=== PATIENT | female | born 2005 | race Caucasian/White ===

== ENCOUNTER 2025-07-26 13:38 | Emergency (ER) | payer OTHER, SELFPAY ==
--- NOTE | ~2025-07-26 | XR_ITS ---
CLINICAL HISTORY: pain, injury 3 view right foot Comparison: None provided Findings: No fractures or dislocations. No significant loss of joint space, osteophytes, or erosions. No ankle effusion. No radiopaque foreign body. IMPRESSION: 1. No acute findings. If pain persists, consider MRI of the right foot. This document has been electronically signed by: Cole Valerio MD on 07/26/2025 14:33:27
--- NOTE | ~2025-07-26 | XR_ITS ---
CLINICAL HISTORY: pain, injury 3 view right ankle Comparison: None provided Findings: Spiral fracture of the distal fibular metaphysis with lateral angulation No significant arthritic change or erosions. No ankle effusion. No radiopaque foreign body. IMPRESSION: 1. Spiral fracture of the distal fibular metaphysis with lateral angulation. This document has been electronically signed by: Cole Valerio MD on 07/26/2025 14:34:13
[2025-07-26 13:51] VITALS: BP 135/73; PULSE 87; RESP 18; TEMP 36.6; O2SAT 98; BMI 45.2
--- NOTE | 2025-07-26 13:51 | ED_ITS ---
HPI - General Adult General Chief complaint: Extremity Injury, Lower Stated complaint: r ankle inj Time Seen by Provider: 07/26/25 14:43 Source: patient and other (patient's friend) Mode of arrival: wheelchair Limitations: no limitations History of Present Illness ED Provider: Porsche Santos PA-C HPI narrative: Patient is a 20 year old assigned female at with no reported medical history presenting to the emergency department today with right ankle pain. Patient states that last night she twisted her right ankle and has had pain ever since. Patient states that she didn't hit her head or have any other injuries with the incident. Patient denies any other complaints. Onset (ago): day(s) (1) Location: right and lower extremity Related Data Allergies Allergy/AdvReac Type Severity Reaction Status Date / Time No Known Allergies Allergy Verified 07/26/25 13:53 Review of Systems 2 Constitutional: Constitutional: Reports as per HPI Eyes: Eyes: Reports as per HPI ENT: Reports as per HPI Cardiovascular: Cardiovascular: Reports as per HPI Respiratory: Respiratory: Reports as per HPI Gastrointestinal: Gastrointestinal: Reports as per HPI Genitourinary: Genitourinary: Reports as per HPI Musculoskeletal: Musculoskeletal: Reports as per HPI Integumentary/Breasts: Skin/Breast: Reports as per HPI Neurologic: Reports as per HPI Psychiatric: Psychiatric: Reports as per HPI Endocrine: Endocrine: Reports as per HPI Hematologic/Lymphatic: Hematologic/Lymphatic: Reports as per HPI Allergic/Immunologic: Allergic/Immunologic: Reports as per HPI [facility] Past Medical History Attestation statement: The following information was validated with the patient. Source: old records reviewed, nursing notes reviewed and other (patient's friend provided additional history and confirmed the history provided by the patient. ) Social History Social History Advance Directives: No Advance Directives Information Provided: No Do you have a plan to hurt others: No Plan Physical Exam ED Vital Signs: Vital Signs - 24 hr 07/26/25 13:51 Temperature 98 F Pulse Rate 87 Respiratory Rate 18 Blood Pressure 135/73 Pulse Oximetry 98 Oxygen Delivery Method Room Air BMI result Body Mass Index 45.2 Const General: cooperative, no acute distress, alert and awake Nutritional Appearance: well nourished Orientation/consciousness: patient oriented x3 HENMT Head: Yes normal to inspection and Yes atraumatic Ears: hearing grossly normal bilaterally and external ears normal General nose exam: Normal external nose present, no nasal discharge noted and no epistaxis Face and sinus: Yes normal facial exam, No abrasion and No laceration Mouth: Normal oral and palatal mucosa present, no drooling and no muffled voice Eyes General: appearance normal, both eyes and all related structures Periorbital: periorbital findings normal Eyelids: Yes eyelids normal Conjunctivae: conjunctivae normal Pupils: Equal, round and reactive pupils present EOM: EOMs intact bilaterally Neck Neck: Yes normal visual inspection and Yes full ROM Resp Effort & Inspection: normal respiratory effort and able to speak in complete sentences Neuro General: patient oriented x3, moves all extremities and CN's II-XI intact bilaterally Cranial nerves: Yes Equal, round and reactive pupils present Cognition (Neuro): normal cognition Extrem Other: Swelling to the right ankle Pain with right ankle ROM Pain with palpation of the right ankle General: Yes capillary refill normal Psych Appearance: grossly normal Mental Status: mental status grossly normal Affect: normal affect Attitude: cooperative Thought process: Normal thought process present Thought content: Normal thought content present Insight: Good insight present (Psych) Course Course Course Narrative: Rapid medical examination performed in triage by Porsche Santos PA-C. Patient is a 20 year old assigned female at presenting to the emergency department with right ankle and foot pain. Detailed physical exam and review of systems are deferred to the sucker machine operator. Imaging ordered. Patient placed back in the waiting room pending room availability and results. Procedures Orthopedic Splinting/Casting R ankle fracture: Side: right Lower Extremity Injury Location: ankle Lower Extremity Immobilizer: posterior splint and stirrup splint Other Orthopedic Equipment: crutches Medical Decision Making Medical Decision Making MDM Narrative: Patient is a 20 year old assigned female at with no reported medical history presenting to the emergency department today with right ankle pain. Patient's physical exam was as noted in the physical exam portion of this note. Patient's right ankle x-ray showed a spiral fracture of the distal fibula and her right foot foot x-ray showed no acute process. I explained my physical exam findings as well as all test results to the patient and the patient's friend. I answered all questions asked by the patient and the patient's friend. Patient's right ankle was placed in a posterior short leg splint with stirrups, without incident. Patient's PMS of the right lower extremity was present and normal prior to and after splint placement. Patient was given crutches with crutch instructions and was able to demonstrate appropriate use while in the department. I stressed the importance of the patient taking her medication as directed (either prescribed or as the over the counter packaging recommends). I stressed the importance of the patient following up with her primary care provider and the orthopedic team. I stressed the importance of the patient returning to the emergency department immediately if her symptoms were to worsen or if she were to develop any dizziness, shortness of breath, difficulty breathing, chest pain, blurry vision, loss of vision, nausea, vomiting, abdominal pain, fever, chills, back pain, or any other complaints. Patient and the patient's friend verbalized agreement and understanding with this treatment plan and discharge. Differential Diagnosis Differential Diagnoses: The differential diagnosis associated with the presentation includes Ankle fracture Fibular fracture Admission/Observation Consideration of admission/observation: Escalation of care including admission/observation considered Patient would have been admitted to the hospital had her work up had any findings where hospital admission was appropriate and her clinical presentation warranted hospital admission. Independent Interpretation I performed an independent interpretation of an: Plain X-Ray Interpretation: My interpretation is in agreement with the radiologist's impression of these imaging studies. L Reason for Exam: pain, injury CLINICAL HISTORY: pain, injury 3 view right foot Comparison: None provided Findings: No fractures or dislocations. No significant loss of joint space, osteophytes, or erosions. No ankle effusion. No radiopaque foreign body. IMPRESSION: 1. No acute findings. If pain persists, consider MRI of the right foot. This document has been electronically signed by: Cole Valerio MD on 07/26/2025 14:33:27 Dictated By: Cole Valerio MD Signed By: Electronically signed by Cole Valerio MD 07/26/25 1434 Reason for Exam: pain, injury CLINICAL HISTORY: pain, injury 3 view right ankle Comparison: None provided Findings: Spiral fracture of the distal fibular metaphysis with lateral angulation No significant arthritic change or erosions. No ankle effusion. No radiopaque foreign body. IMPRESSION: 1. Spiral fracture of the distal fibular metaphysis with lateral angulation. This document has been electronically signed by: Cole Valerio MD on 07/26/2025 14:34:13 Dictated By: Cole Valerio MD Signed By: Electronically signed by Cole Valerio MD 07/26/25 1435 Radiology Impression Discussion of test interpretation with radiology: I have reviewed the radiologist's reading. Independent Historian Clinical information obtained from an independent historian. History obtained from or confirmed by: Friend (patient's friend provided additional history and confirmed the history provided by the patient. ) Discharge Plan Discharge Clinical Impression: Closed fibular fracture Patient Disposition: Home, Self-Care Instructions: Leg Fracture (ED), Crutch Instructions (ED) Additional Instructions: Remain non weight bearing on your right lower extremity. Do NOT stick anything down / into your splint. Do NOT get your splint wet. Do N OT remove your splint. If you have any change in sensation, movement, or color of your right toes - you may loosen the outer LUIS ENRIQUE wraps. If you find yourself loosening the LUIS ENRIQUE wraps to the point of seeing the white splint material underneath - STOP and proceed to your closest Emergency Department, immediately. Follow up with your primary care provider and the orthopedic team. Return to the emergency department immediately if your symptoms worsen or if you develop any numbness, tingling, dizziness, shortness of breath, difficulty breathing, chest pain, blurry vision, loss of vision, nausea, vomiting, abdominal pain, fever, chills, back pain, or any other complaints. If you do not have a primary care provider - call any of the below numbers to establish and follow up with a primary care provider. [facility] Primary Care ([place]) [phone] [place] [address], [address] [facility] Primary Care ([address] [place]) [phone] [address] [facility] [facility], [address] [facility] Primary Care ([address] [place]) [phone] [address] [facility] [facility], [address] [facility] Primary Care ([place]) [phone] [place] [address], [facility] [address] [facility], [address] [facility] Family Medicine [phone] [address] [facility], [address] Please see the information below about our Patient Portal. If you are not yet enrolled in the [employer] [facility] Patient Portal, you will receive an enrollment email invitation following your visit to any [facility] setting. You may also self-enroll in the Patient Portal by visiting our website: [email or web address] The following information is required to access the Patient Portal: - Your [facility] Medical Record Number - Your personal home email address (must match what is in your electronic medical record, Registration staff can assist with this) - Name - Date of Capabilities of the Patient Portal: - Message some providers - View upcoming appointments - Access your health summary, medical history, and visit history - View current conditions and allergies - View procedure and lab results - View your medications, including guidelines, side effects, and precautions - Complete pre-appointment questionnaires requested by your provider - Ready summary reports of your office visits and procedures To access the Patient Portal Mobile Vishal, follow these directions: - Search [employer] in the Vishal Store or WorldDoc Store - Download the Vishal - Search for [employer] - Enter your login/password Referrals: [facility] Orthopedic Surgeons [Provider Group] Referral Note: Call to establish and follow up with the orthopedic team. Stand Alone Forms: Work/School Release Discharge Date/Time: 07/26/25 15:51 Print Language: Burkinan
--- OUTSIDE RECORDS SUMMARY | 2025-07-26 15:21 | XMS_ITS | Encounter Summary ---
Author Organization [facility] work ([facility]) Address [address] [place] [address] Care Team Providers Care Eyelet Punch Operator Name Role Phone Meme Steel MD Primary Care Provider [phone] Pcp, Pcp Primary Care Provider Unavailabl Guadalupe Bardales MD Primary Care Provider [phone] Sena Dominguez Unavailable [phone] Levy Barry MD Primary Care Provider Unavailab le Source Comments The information that you have received may contain highly confidential and/or federally protected health information. This information has been disclosed to you from records protected by [facility]. The law prohibits you from making any further disclosure of this information unless further disclosure is expressly permitted by the written consent of the person to whom it pertains or is authorized by the Confidentiality of HIV-Related Information Act. A general authorization for the releaseof medical or other information is not sufficient. This information may include information relatedto diagnosis and/or treatment of HIV, mental health, or drug and alcohol-related conditions. Any disclosure, dissemination, distribution, or copying of this information is strictly prohibited. If youfeel that you have received this information in error, please contact the sender immediately.[facility] ([facility]) Encounter Details Date Type Department Care Team (Late st Contact Info) Description 11/16/2006 Historical Note [facility] [employer] [facility] Devyn Vásquez MD [address] [place] [address] [phone] Social History Tobacco Use Types Packs/Day Years Used Date Smoking Tobacco: Never Assessed Comments Unknown Sex and Gender Information Value Date Recorded Sex Assigned at Not on file Legal Sex Female 1:04 AM EDT Gender Identity Not on file Sexual Orientation Not on file documented as of this encounter Plan of Treatment Upcoming Encounters Date Type Department Care Team (Late st Contact Info) Description 10/10/2025 10:00 AM EST Office Visit LEATHA CARRILLO - [facility] at [facility] [address] [address] [place] [phone] Brenda Clay MD [address] [facility] [address] [place] [phone] 04/15/2026 10:00 AM EDT Office Visit [facility] at [facility] + [facility] [address] [facility] [address] [place] [phone] Sena Dominguez PA [address] [facility] [place] [address] documented as of this encounter Visit Diagnoses Not on filedocumented in this encounter Care Teams Eyelet Punch Operator Relationship Specialty Start Date End Date Meme Steel MD [address] [place] [address] [address] [place] [address] PCP - General Pediatrics 06/05/18 04/25/22 No Pcp, Pcp PCP - General 06/08/22 07/19/22 Guadalupe Mcbride MD PCP - General Family Medicine 07/20/22 11/01/23 Sena Dominguez PA [address] [place] [address] [place] [address] PCP - BRADY Physician Nursing Home Assistant 11/02/23 Levy Barry MD [address] [place] [address] [place] [address] PCP - General Family Medicine 12/20/23 documented as of this encounter
--- OUTSIDE RECORDS SUMMARY | 2025-07-26 15:21 | XMS_ITS | Encounter Summary ---
Author Organization [facility] work ([facility]) Address [address] [place] [address] Care Team Providers Care Dude Ranch Manager Name Role Phone Meme Steel MD Primary Care Provider [phone] Pcp, Pcp Primary Care Provider Unavailabl Guadalupe Bardales MD Primary Care Provider [phone] Sena Dominguez Unavailable [phone] Levy Barry MD Primary Care Provider Unavailab le Source Comments The information that you have received may contain highly confidential and/or federally protected health information. This information has been disclosed to you from records protected by [facility]. The law prohibits you from making [...] contact the sender immediately.[facility] ([facility]) Encounter Details Date Type Department Care Team (Late st Contact Info) Description 2004 Historical Note [facility] [employer] [facility] Devyn Vásquez MD [address] [place] [phone] Social History Tobacco Use Types Packs/Day Years [...] AM EST Office Visit LEATHA CARRILLO - [facility] [address] [facility] [address] [place] [phone] Brenda Clay MD [address] [facility] [address] [place] [phone] 04/15/2026 10:00 AM EDT Office Visit [facility] at [facility] + [facility] [address] [facility] [address] [place] [phone] Sena Dominguez PA [address] [facility] [place] [address] documented as of this encounter Visit Diagnoses Not on filedocumented in this encounter Care Teams Dude Ranch Manager Relationship Specialty Start Date End Date Meme Steel MD [address] [place] [address] [place] [address] PCP - General Pediatrics 06/05/18 04/25/22 No Pcp, Pcp PCP - General 06/08/22 07/19/22 Guadalupe Mcbride MD PCP - General Family Medicine 07/20/22 11/01/23 Sena Dominguez PA [address] [place] [address] [place] [address] PCP - BRADY Physician Medical Accounts Receivable Specialist 11/02/23 Levy Barry MD [address] [place] [address] [place] [address] PCP - General Family Medicine 12/20/23 documented as of this encounter
--- OUTSIDE RECORDS SUMMARY | 2025-07-26 15:21 | XMS_ITS | Encounter Summary ---
Author Organization [facility] work ([facility]) Address [address] [place] [address] Care Team Providers Care Corrections Caseworker Name Role Phone Meme Steel MD Primary Care Provider [phone] Pcp, Pcp Primary Care Provider Unavailabl Guadalupe Bardales MD Primary Care Provider [phone] Sena Dominguez Unavailable [phone] Levy Barry MD Primary Care Provider Unavailab le Source Comments The information that you have received may contain highly confidential and/or federally protected health information. This information has been disclosed to you from records protected by [facility]. The law prohibits you from making [...] information in error, please contact the sender immediately.[facility] ([facility]) Encounter Details Date Type Department Care Team (Late st Contact Info) Description 2004 Historical Note [facility] [employer] [facility] Devyn Vásquez MD [address] [place] [address] [phone] Social History Tobacco Use Types Packs/Day Years [...] AM EST Office Visit LEATHA CARRILLO - [facility] [address] [facility] [address] [place] [phone] Brenda Clay MD [address] [facility] [address] [place] [phone] 04/15/2026 10:00 AM EDT Office Visit [facility] at [facility] + [facility] [address] [place] [phone] Sena Dominguez PA [address] [facility] [place] [address] documented as of this encounter Visit Diagnoses Not on filedocumented in this encounter Care Teams Corrections Caseworker Relationship Specialty Start Date End Date Meme Steel MD [address] [place] [address] [address] [place] [address] PCP - General Pediatrics 06/05/18 04/25/22 No Pcp, Pcp PCP - General 06/08/22 07/19/22 Guadalupe Mcbride MD PCP - General Family Medicine 07/20/22 11/01/23 Sena Dominguez PA [address] [place] [address] [place] [address] PCP - BRADY Physician Graduate Student 11/02/23 Levy Barry MD [address] [place] [address] [place] [address] PCP - General Family Medicine 12/20/23 documented as of this encounter
--- OUTSIDE RECORDS SUMMARY | 2025-07-26 15:21 | XMS_ITS | Encounter Summary ---
Author Organization [facility] work ([facility]) Address [address] [place] [address] Care Team Providers Care Furnace Charging Machine Operator Name Role Phone Meme Steel MD Primary Care Provider [phone] Pcp, Pcp Primary Care Provider Unavailabl Guadalupe Bardales MD Primary Care Provider [phone] Sena Dominguez Unavailable [phone] Levy Barry MD Primary Care Provider Unavailab le Source Comments The information that you have received may contain highly confidential and/or federally protected health information. This information has been disclosed to you from records protected by [facility]. The law prohibits you from making [...] information in error, please contact the sender immediately.[facility] ([facility]) Encounter Details Date Type Department Care Team (Late st Contact Info) Description 2004 Historical Note [facility] [employer] [facility] Devyn Vásquez MD [address] [place] [address] [phone] Social History Tobacco Use Types Packs/Day Years [...] AM EST Office Visit LEATHA CARRILLO - [facility] [address] [facility] [address] [place] [phone] Brenda Clay MD [address] [facility] [address] [place] [phone] 04/15/2026 10:00 AM EDT Office Visit [facility] at [facility] + [facility] [address] [facility] [address] [place] [address] Sean Dominguez PA [address] [facility] [place] [address] documented as of this encounter Visit Diagnoses Not on filedocumented in this encounter Care Teams Furnace Charging Machine Operator Relationship Specialty Start Date End Date Meme Steel MD [address] [place] [address] [address] [place] [address] PCP - General Pediatrics 06/05/18 04/25/22 No Pcp, Pcp PCP - General 06/08/22 07/19/22 Guadalupe Mcbried MD PCP - General Family Medicine 07/20/22 11/01/23 Sena Dominguez PA [address] [place] [address] [place] [address] PCP - BRADY Physician Womens Health Nurse Practitioner 11/02/23 Levy Barry MD [address] [place] [address] [place] [address] PCP - General Family Medicine 12/20/23 documented as of this encounter
--- OUTSIDE RECORDS SUMMARY | 2025-07-26 15:21 | XMS_ITS | Encounter Summary ---
Author Organization [facility] work ([facility]) Address [address] [place] [address] Care Team Providers Care Rail Engineer Name Role Phone Meme Steel MD Primary Care Provider [phone] Pcp, Pcp Primary Care Provider Unavailabl Guadalupe Bardales MD Primary Care Provider [phone] Sena Dominguez Unavailable [phone] Levy Barry MD Primary Care Provider Unavailab le Source Comments The information that you have received may contain highly confidential and/or federally protected health information. This information has been disclosed to you from records protected by [facility]. The law prohibits you from making [...] information in error, please contact the sender immediately.[facility] ([facility]) Encounter Details Date Type Department Care Team (Late st Contact Info) Description 11/09/2006 Historical Note [facility] Thubrikar Aortic Valve System Devyn Vásquez MD [address] [place] [address] [phone] Social History Tobacco Use Types Packs/Day Years [...] AM EST Office Visit LEATHA CARRILLO - [facility] [address] [facility] [address] [place] [phone] Brenda Clay MD [address] [facility] [address] [place] [address] 04/15/2026 10:00 AM EDT Office Visit [facility] + [facility] [address] [facility] [address] [place] [address] Sena Dominguez PA [address] [facility] [place] [address] documented as of this encounter Visit Diagnoses Not on filedocumented in this encounter Care Teams Rail Engineer Relationship Specialty Start Date End Date Meme Steel MD [address] [place] [address] 105 [place] [address] PCP - General Pediatrics 06/05/18 04/25/22 No Pcp, Pcp PCP - General 06/08/22 07/19/22 Guadaulpe Mcrbide MD PCP - General Family Medicine 07/20/22 11/01/23 Sena Dominguez PA [address] [place] [address] [place] [address] PCP - BRADY Physician Lithograph Printer 11/02/23 Levy Barry MD [address] [place] [address] [place] [address] PCP - General Family Medicine 12/20/23 documented as of this encounter
--- OUTSIDE RECORDS SUMMARY | 2025-07-26 15:21 | XMS_ITS | Encounter Summary ---
Author Organization [facility] work ([facility]) Address [address] [place] [address] Care Team Providers Care Specifications Checker Name Role Phone Meme Steel MD Primary Care Provider [phone] Pcp, Pcp Primary Care Provider Unavailabl Guadalupe Bardales MD Primary Care Provider [phone] Sena Dominguez Unavailable [phone] Levy Barry MD Primary Care Provider Unavailab le Source Comments The information that you have received may contain highly confidential and/or federally protected health information. This information has been disclosed to you from records protected by [facility]. The law prohibits you from making [...] information in error, please contact the sender immediately.[facility] ([facility]) Encounter Details Date Type Department Care Team (Late st Contact Info) Description 2004 Historical Note SVMG Spectrum5 System Devyn Vásquez MD [address] [place] [address] [phone] Social History Tobacco Use Types Packs/Day Years [...] AM EST Office Visit LEATHA CARRILLO - [facility] at [facility] [address] [place] [phone] Brenda Clay MD [address] [facility] [address] [place] [address] 04/15/2026 10:00 AM EDT Office Visit [facility] at [facility] + [facility] [address] [facility] [address] [place] [address] Sena Dominguez PA [address] [facility] [place] [address] documented as of this encounter Visit Diagnoses Not on filedocumented in this encounter Care Teams Specifications Checker Relationship Specialty Start Date End Date Meme Steel MD [address] [place] [address] 105 [place] [address] PCP - General Pediatrics 06/05/18 04/25/22 No Pcp, Pcp PCP - General 06/08/22 07/19/22 Guadalupe Mcbride MD PCP - General Family Medicine 07/20/22 11/01/23 Sena Dominguez PA [address] [place] [address] [place] [address] PCP - BRADY Physician Golf Caddy 11/02/23 Levy Barry MD [address] [place] [address] [place] [address] PCP - General Family Medicine 12/20/23 documented as of this encounter
--- OUTSIDE RECORDS SUMMARY | 2025-07-26 15:21 | XMS_ITS | Encounter Summary ---
Author Organization [facility] work ([facility]) Address [address] [place] [address] Care Team Providers Care Log Grader Name Role Phone Meme Steel MD Primary Care Provider [phone] Pcp, Pcp Primary Care Provider Unavailabl Guadalupe Bardales MD Primary Care Provider Sena Dominguez Unavailable [phone] Levy Barry MD Primary Care Provider Unavailab le Source Comments The information that you have received may contain highly confidential and/or federally protected health information. This information has been disclosed to you from records protected by [facility]. The law prohibits you from making [...] information in error, please contact the sender immediately.[facility] ([facility]) Encounter Details Date Type Department Care Team (Late st Contact Info) Description 2004 Historical Note SVMG Wiener Games System Devyn Vásquez MD [address] [place] [address] [phone] Social History Tobacco Use Types Packs/Day Years [...] AM EST Office Visit LEATHA CARRILLO - [facility] at [facility] [address] [facility] [address] [place] [phone] Brenda Clay MD [address] [facility] [address] [place] [address] 04/15/2026 10:00 AM EDT Office Visit [facility] at [facility] + [facility] [address] [facility] [address] [place] [address] Sena Dominguez PA [address] [facility] [place] [address] documented as of this encounter Visit Diagnoses Not on filedocumented in this encounter Care Teams Log Grader Relationship Specialty Start Date End Date Meme Steel MD [address] [place] [address] 105 [place] [address] PCP - General Pediatrics 06/05/18 04/25/22 No Pcp, Pcp PCP - General 06/08/22 07/19/22 Guadalupe Mcbride MD PCP - General Family Medicine 07/20/22 11/01/23 Sena Dominguez PA [address] [place] [address] [place] [address] PCP - BRADY Physician Senior Data Architect 11/02/23 Levy Barry MD [address] [place] [address] [place] [address] PCP - General Family Medicine 12/20/23 documented as of this encounter
--- OUTSIDE RECORDS SUMMARY | 2025-07-26 15:21 | XMS_ITS | Encounter Summary ---
Author Organization [facility] work ([facility]) Address [address] [place] [address] Care Team Providers Care Placement Assistant Name Role Phone Meme Steel MD Primary Care Provider [phone] No Pcp, Pcp Primary Care Provider Unavailabl Guadalupe Bardales MD Primary Care Provider [phone] Sena Dominguez Unavailable [phone] Levy Barry MD Primary Care Provider Unavailab le Source Comments The information that you have received may contain highly confidential and/or federally protected health information. This information has been disclosed to you from records protected by [email or web address]. The law prohibits you from making [...] in error, please contact the sender immediately.[facility] ([facility]) Encounter Details Date Type Department Care Team (Late st Contact Info) Description 2004 Historical Note SVMG The Black Tux System Devyn Vásquez MD [address] [place] [address] [phone] Social History Tobacco Use Types Packs/Day Years [...] AM EST Office Visit LEATHA CARRILLO - [facility] [address] [facility] [address] [place] [phone] Brenda Clay MD [address] [facility] [address] [place] [address] 04/15/2026 10:00 AM EDT Office Visit [facility]HA [facility] at [facility] [address] [facility] [address] [place] [address] Sena Dominguez PA [address] [facility] [place] [address] documented as of this encounter Visit Diagnoses Not on filedocumented in this encounter Care Teams Placement Assistant Relationship Specialty Start Date End Date Meme Steel MD [address] [place] [address] 105 [place] [address] PCP - General Pediatrics 06/05/18 04/25/22 No Pcp, Pcp PCP - General 06/08/22 07/19/22 Guadalupe Mcbride MD PCP - General Family Medicine 07/20/22 11/01/23 Sena Dominguez PA [address] [place] [address] [place] [address] PCP - BRADY Physician Calciner Operator Helper 11/02/23 Levy Barry MD [address] [place] [address] [place] [address] PCP - General Family Medicine 12/20/23 documented as of this encounter
--- OUTSIDE RECORDS SUMMARY | 2025-07-26 15:21 | XMS_ITS | Encounter Summary ---
Author Organization [facility] work ([facility]) Address [address] [place] [address] Care Team Providers Care Coal Washer Name Role Phone Meme Steel MD Primary Care Provider [phone] Pcp, Pcp Primary Care Provider Unavailabl Guadalupe Bardales MD Primary Care Provider [phone] Sena Dominguez Unavailable [phone] Levy Barry MD Primary Care Provider Unavailab le Source Comments The information that you have received may contain highly confidential and/or federally protected health information. This information has been disclosed to you from records protected by [facility]. The law prohibits you from making any [...] information in error, please contact the sender immediately.[facility] ([facility]) Encounter Details Date Type Department Care Team (Late st Contact Info) Description 2004 Historical Note SVMG Real Time Tomography System Devyn Vásquez MD [address] [place] [address] [phone] Social History Tobacco Use Types Packs/Day Years [...] AM EST Office Visit LEATHA CARRILLO - [facility] [address] [facility] [address] [place] [phone] Brenda Clay MD [address] [facility] [address] [place] [address] 04/15/2026 10:00 AM EDT Office Visit [facility]HA [facility] at [facility] + [facility] [address] [facility] [address] [place] [address] Sena Dominguez PA [address] [facility] [place] [address] documented as of this encounter Visit Diagnoses Not on filedocumented in this encounter Care Teams Coal Washer Relationship Specialty Start Date End Date Meme Steel MD [address] [place] [address] 105 [place] [address] PCP - General Pediatrics 06/05/18 04/25/22 No Pcp, Pcp PCP - General 06/08/22 07/19/22 Guadalupe Mcbride MD PCP - General Family Medicine 07/20/22 11/01/23 Sena Dominguez PA [address] [place] [address] [place] [address] PCP - BRADY Physician Helper Animal Laboratory 11/02/23 Levy Barry MD [address] [place] [address] [place] [address] PCP - General Family Medicine 12/20/23 documented as of this encounter
--- OUTSIDE RECORDS SUMMARY | 2025-07-26 15:21 | XMS_ITS | Encounter Summary ---
Author Organization [facility] work ([facility]) Address [address] [place] [address] Care Team Providers Care Police Communications Dispatcher Name Role Phone Meme Steel MD Primary Care Provider [phone] Pcp, Pcp Primary Care Provider Unavailabl Guadalupe Bardales MD Primary Care Provider [phone] Sena Dominguez Unavailable [phone] Levy Barry MD Primary Care Provider Unavailab le Source Comments The information that you have received may contain highly confidential and/or federally protected health information. This information has been disclosed to you from records protected by [facility]. The law prohibits you from making any [...] information in error, please contact the sender immediately.[facility] ([facility]) Encounter Details Date Type Department Care Team (Late st Contact Info) Description 06/26/2007 Historical Note SVMG Certus Group System Devyn Vásquez MD [address] [place] [address] [phone] Social History Tobacco Use Types Packs/Day Years [...] AM EST Office Visit LEATHA CARRILLO - [facility] at [facility] [address] [facility] [address] [place] [phone] Brenda Clay MD [address] [facility] [address] [place] [address] 04/15/2026 10:00 AM EDT Office Visit LEATHA [facility] at [facility] + [facility] [address] [facility] [address] [place] [address] Sean Dominguez PA [address] [facility] [place] [address] documented as of this encounter Visit Diagnoses Not on filedocumented in this encounter Care Teams Police Communications Dispatcher Relationship Specialty Start Date End Date Meme Steel MD [address] [place] [address] 105 [place] [address] PCP - General Pediatrics 06/05/18 04/25/22 No Pcp, Pcp PCP - General 06/08/22 07/19/22 Guadalupe Mcbride MD PCP - General Family Medicine 07/20/22 11/01/23 Sena Dominguez PA [address] [place] [address] [place] [address] PCP - BRADY Physician Day Care Aide 11/02/23 Levy Barry MD [address] [place] [address] [place] [address] PCP - General Family Medicine 12/20/23 documented as of this encounter
--- OUTSIDE RECORDS SUMMARY | 2025-07-26 15:21 | XMS_ITS | Encounter Summary ---
Author Organization [facility] work ([facility]) Address [address] [place] [address] Care Team Providers Care Unix Analyst Name Role Phone Meme Steel MD Primary Care Provider [phone] Pcp, Pcp Primary Care Provider Unavailabl Guadalupe Bardales MD Primary Care Provider [phone] Sena Dominguez Unavailable [phone] Levy Barry MD Primary Care Provider Unavailab le Source Comments The information that you have received may contain highly confidential and/or federally protected health information. This information has been disclosed to you from records protected by [facility]. The law prohibits you from making [...] information in error, please contact the sender immediately.[facility] ([facility]) Encounter Details Date Type Department Care Team (Late st Contact Info) Description 2004 Historical Note SVMG Velocix System Devyn Vásquez MD [address] [place] [address] [phone] Social History Tobacco Use Types Packs/Day Years [...] AM EST Office Visit LEATHA CARRILLO - [facility] at [facility] [address] [facility] [address] [place] [phone] Brenda Clay MD [address] [facility] [address] [place] [address] 04/15/2026 10:00 AM EDT Office Visit LE[facility]HA [facility] at [facility] + [facility] [address] [facility] [address] [place] [address] Sena Dominguez PA [address] [facility] [place] [address] documented as of this encounter Visit Diagnoses Not on filedocumented in this encounter Care Teams Unix Analyst Relationship Specialty Start Date End Date Meme Steel MD [address] [place] [address] 105 [place] [address] PCP - General Pediatrics 06/05/18 04/25/22 No Pcp, Pcp PCP - General 06/08/22 07/19/22 Guadalupe Mcbride MD PCP - General Family Medicine 07/20/22 11/01/23 Sena Dominguez PA [address] [place] [address] [place] [address] PCP - BRADY Physician Poultry Barn Manager 11/02/23 Levy Barry MD [address] [place] [address] [place] [address] PCP - General Family Medicine 12/20/23 documented as of this encounter
--- OUTSIDE RECORDS SUMMARY | 2025-07-26 15:21 | XMS_ITS | Encounter Summary ---
Author Organization [facility] work ([facility]) Address [address] [place] [address] Care Team Providers Care Strings Teacher Name Role Phone Meme Steel MD Primary Care Provider [phone] No Pcp, Pcp Primary Care Provider Unavailabl Guadalupe Bardales MD Primary Care Provider [phone] Sena Dominguez Unavailable [phone] Levy Barry MD Primary Care Provider Unavailab le Source Comments The information that you have received may contain highly confidential and/or federally protected health information. This information has been disclosed to you from records protected by [facility]. The law prohibits you from making [...] information in error, please contact the sender immediately.[facility] ([facility]) Encounter Details Date Type Department Care Team (Late st Contact Info) Description 2004 Historical Note SVMG Gamida Cell System Devyn Vásquez MD [address] [place] [address] [phone] Social History Tobacco Use Types Packs/Day Years [...] AM EST Office Visit LEATHA CARRILLO - [facility] [address] [facility] [address] [place] [phone] Brenda Clay MD [address] [facility] [address] [place] [address] 04/15/2026 10:00 AM EDT Office Visit LEATHA [facility] at [facility] + [facility] [address] [facility] [address] [place] [address] Sena Dominguez PA [address] [facility] [place] [address] documented as of this encounter Visit Diagnoses Not on filedocumented in this encounter Care Teams Strings Teacher Relationship Specialty Start Date End Date Meme Steel MD [address] [place] [address] 105 [place] [address] PCP - General Pediatrics 06/05/18 04/25/22 No Pcp, Pcp PCP - General 06/08/22 07/19/22 Guadalupe Mcbride MD PCP - General Family Medicine 07/20/22 11/01/23 Sena Dominguez PA [address] [place] [address] [place] [address] PCP - BRADY Physician Horticulturalist 11/02/23 Levy Barry MD [address] [place] [address] [place] [address] PCP - General Family Medicine 12/20/23 documented as of this encounter
--- OUTSIDE RECORDS SUMMARY | 2025-07-26 15:21 | XMS_ITS | Encounter Summary ---
Author Organization [facility] work ([facility]) Address [address] [place] [address] Care Team Providers Care Award Clerk Name Role Phone Meme Steel MD Primary Care Provider [phone] Pcp, Pcp Primary Care Provider Unavailabl Guadalupe Bardales MD Primary Care Provider [phone] Sena Dominguez Unavailable [phone] Levy Barry MD Primary Care Provider Unavailab le Source Comments The information that you have received may contain highly confidential and/or federally protected health information. This information has been disclosed to you from records protected by [facility]. The law prohibits you from making [...] information in error, please contact the sender immediately.[facility] ([facility]) Encounter Details Date Type Department Care Team (Late st Contact Info) Description 2004 Historical Note SVMG Vaybee System Devyn Vásquez MD [address] [place] [phone] Social History Tobacco Use Types Packs/Day Years [...] EST Office Visit LEATHA CARRILLO - [facility] [address] [facility] [address] [place] [phone] Brenda Clay MD [address] [facility] [address] [place] [address] 04/15/2026 10:00 AM EDT Office Visit [facility]HA [facility] at [facility] + [facility] [address] [facility] [address] [place] [address] Sena Dominguez PA [address] [facility] [place] [address] documented as of this encounter Visit Diagnoses Not on filedocumented in this encounter Care Teams Award Clerk Relationship Specialty Start Date End Date Meme Steel MD [address] [place] [address] 105 [place] [address] PCP - General Pediatrics 06/05/18 04/25/22 No Pcp, Pcp PCP - General 06/08/22 07/19/22 Guadalupe Mcbride MD PCP - General Family Medicine 07/20/22 11/01/23 Sena Dominguez PA [address] [place] [address] [place] [address] PCP - BRADY Physician Patent Searcher 11/02/23 Levy Barry MD [address] [place] [address] [place] [address] PCP - General Family Medicine 12/20/23 documented as of this encounter
--- OUTSIDE RECORDS SUMMARY | 2025-07-26 15:21 | XMS_ITS | Encounter Summary ---
Author Organization [facility] work ([facility]) Address [address] [place] [address] Care Team Providers Care Mophead Sewer Name Role Phone Meme Steel MD Primary Care Provider [phone] No Pcp, Pcp Primary Care Provider Unavailabl Guadalupe Bardales MD Primary Care Provider [phone] Sena Dominguez Unavailable [phone] Levy Barry MD Primary Care Provider Unavailab le Source Comments The information that you have received may contain highly confidential and/or federally protected health information. This information has been disclosed to you from records protected by [facility]. The law prohibits you from making [...] information in error, please contact the sender immediately.[facility] ([facility]) Encounter Details Date Type Department Care Team (Late st Contact Info) Description 2004 Historical Note [facility]G [employer] System Devyn Vásquez MD [address] [place] [address] [phone] Social History Tobacco Use Types Packs/Day Years [...] AM EST Office Visit LEATHA CARRILLO - [facility] [address] [facility] [address] [place] [phone] Brenda Clay MD [address] [facility] [address] [place] [address] 04/15/2026 10:00 AM EDT Office Visit LEATHA [facility] at [facility] + [facility] [address] [facility] [address] [place] [address] Sena Dominguez PA [address] [facility] [place] [address] documented as of this encounter Visit Diagnoses Not on filedocumented in this encounter Care Teams Mophead Sewer Relationship Specialty Start Date End Date Meme Steel MD [address] [place] [address] 105 [place] [address] PCP - General Pediatrics 06/05/18 04/25/22 No Pcp, Pcp PCP - General 06/08/22 07/19/22 Guadalupe Mcbride MD PCP - General Family Medicine 07/20/22 11/01/23 Sena Dominguez PA [address] [place] [address] [place] [address] PCP - BRADY Physician Glassware Maker Demonstrator 11/02/23 Levy Barry MD [address] [place] [address] [place] [address] PCP - General Family Medicine 12/20/23 documented as of this encounter
--- OUTSIDE RECORDS SUMMARY | 2025-07-26 15:21 | XMS_ITS | Encounter Summary ---
Author Organization [facility] work ([facility]) Address [address] [place] [address] Care Team Providers Care Manager Statistical Name Role Phone Meme Steel MD Primary Care Provider [phone] No Pcp, Pcp Primary Care Provider Unavailabl Guadalupe Bardales MD Primary Care Provider Sena Dominguez Unavailable [phone] Levy Barry MD Primary Care Provider Unavailab le Source Comments The information that you have received may contain highly confidential and/or federally protected health information. This information has been disclosed to you from records protected by [facility]. The law prohibits you from making any [...] information in error, please contact the sender immediately.[facility] ([facility]) Encounter Details Date Type Department Care Team (Late st Contact Info) Description 2004 Historical Note [facility] Tymphany System Devyn Vásquez MD [address] [place] [address] [phone] Social History Tobacco Use Types Packs/Day Years [...] AM EST Office Visit LEATHA CARRILLO - [facility] [address] [facility] [address] [place] [phone] Brenda Clay MD [address] [facility] [address] [place] [address] 04/15/2026 10:00 AM EDT Office Visit [facility] [address] [facility] [address] [place] [address] Sena Dominguez PA [address] [facility] [place] [address] documented as of this encounter Visit Diagnoses Not on filedocumented in this encounter Care Teams Manager Statistical Relationship Specialty Start Date End Date Meme Steel MD [address] [place] [address] [place] [address] PCP - General Pediatrics 06/05/18 04/25/22 No Pcp, Pcp PCP - General 06/08/22 07/19/22 Guadalupe Mcbride MD PCP - General Family Medicine 07/20/22 11/01/23 Sena Dominguez PA [address] [place] [address] [place] [address] PCP - BRADY Physician Pyridine Operator 11/02/23 Levy Barry MD [address] [place] [address] [place] [address] PCP - General Family Medicine 12/20/23 documented as of this encounter
--- OUTSIDE RECORDS SUMMARY | 2025-07-26 15:21 | XMS_ITS | Encounter Summary ---
Author Organization [facility] work ([facility]) Address [address] [place] [address] Care Team Providers Care Gas Examiner Name Role Phone Meme Steel MD Primary Care Provider [phone] Pcp, Pcp Primary Care Provider Unavailabl Guadalupe Bardales MD Primary Care Provider [phone] Sena Dominguez Unavailable [phone] Levy Barry MD Primary Care Provider Unavailab le Source Comments The information that you have received may contain highly confidential and/or federally protected health information. This information has been disclosed to you from records protected by [facility]. The law prohibits you from [...] information in error, please contact the sender immediately.[facility] ([facility]) Encounter Details Date Type Department Care Team (Late st Contact Info) Description 2004 Historical Note [facility] [email or web address] System Devyn Vásquez MD [address] [place] [address] [phone] Social History Tobacco Use Types Packs/Day Years [...] AM EST Office Visit LEATHA CARRILLO - [facility] [address] [facility] [address] [place] [phone] Brenda Clay MD [address] [facility] [address] [place] [address] 04/15/2026 10:00 AM EDT Office Visit [facility]HA [facility] at [facility] + [facility] [address] [facility] [facility] [facility] [address] [place] [address] Sena Dominguez PA [address] [facility] [place] [address] documented as of this encounter Visit Diagnoses Not on filedocumented in this encounter Care Teams Gas Examiner Relationship Specialty Start Date End Date Meme Steel MD [address] [place] [address] 105 [place] [address] PCP - General Pediatrics 06/05/18 04/25/22 No Pcp, Pcp PCP - General 06/08/22 07/19/22 Guadalupe Mcbride MD PCP - General Family Medicine 07/20/22 11/01/23 Sena Dominguez PA [address] [place] [address] [place] [address] PCP - BRADY Physician Powder Line Repairer 11/02/23 Levy Barry MD [address] [place] [address] [place] [address] PCP - General Family Medicine 12/20/23 documented as of this encounter
--- OUTSIDE RECORDS SUMMARY | 2025-07-26 15:21 | XMS_ITS | Encounter Summary ---
Author Organization [facility] work ([facility]) Address [address] [place] [address] Care Team Providers Care Marine Welder Name Role Phone Meme Steel MD Primary Care Provider [phone] Pcp, Pcp Primary Care Provider Unavailabl Guadalupe Bardales MD Primary Care Provider [phone] Sena Dominguez Unavailable [phone] Levy Barry MD Primary Care Provider Unavailab le Source Comments The information that you have received may contain highly confidential and/or federally protected health information. This information has been disclosed to you from records protected by [facility]. The law prohibits you from making [...] information in error, please contact the sender immediately.[facility] ([facility]) Encounter Details Date Type Department Care Team (Late st Contact Info) Description 05/29/2006 Historical Note [facility] [employer] System Devyn Vásquez MD [address] [place] [address] [phone] Social History Tobacco Use Types Packs/Day Years [...] LEATHA CARRILLO - [facility] [address] [facility] [address] [place] [phone] Brenda Clay MD [address] [facility] [address] [place] [address] 04/15/2026 10:00 AM EDT Office Visit [facility] at [facility] + [facility] [address] [facility] [facility] [facility] [address] [place] [address] Sena Dominguez PA [address] [facility] [place] [address] documented as of this encounter Visit Diagnoses Not on filedocumented in this encounter Care Teams Marine Welder Relationship Specialty Start Date End Date Meme Steel MD [address] [place] [address] 105 [place] [address] PCP - General Pediatrics 06/05/18 04/25/22 No Pcp, Pcp PCP - General 06/08/22 07/19/22 Guadalupe Mcbride MD PCP - General Family Medicine 07/20/22 11/01/23 Sena Dominguez PA [address] [place] [address] [place] [address] PCP - BRADY Physician Land Management Supervisor 11/02/23 Levy Barry MD [address] [place] [address] [place] [address] PCP - General Family Medicine 12/20/23 documented as of this encounter
--- OUTSIDE RECORDS SUMMARY | 2025-07-26 15:21 | XMS_ITS | Encounter Summary ---
Author Organization [facility] work ([facility]) Address [address] [place] [address] Care Team Providers Care Rail Technician Name Role Phone Meme Steel MD Primary Care Provider [phone] Pcp, Pcp Primary Care Provider Unavailabl Guadalupe Bardales MD Primary Care Provider [phone] Sena Dominguez Unavailable [phone] Levy Barry MD Primary Care Provider Unavailab le Source Comments The information that you have received may contain highly confidential and/or federally protected health information. This information has been disclosed to you from records protected by [facility]. The law prohibits you from making [...] information in error, please contact the sender immediately.[facility] ([facility]) Encounter Details Date Type Department Care Team (Late st Contact Info) Description 2004 Historical Note [facility] [employer]local System Devyn Vásquez MD [address] [place] [address] [phone] Social History Tobacco Use Types Packs/Day Years [...] EST Office Visit LEATHA CARRILLO - [facility] [address] [facility] [address] [place] [phone] Brenda Clay MD [address] [facility] [address] [place] [address] 04/15/2026 10:00 AM EDT Office Visit [facility]HA [facility] [address] [facility] [address] [place] [address] Sena Dominguez PA [address] [facility] [place] [address] documented as of this encounter Visit Diagnoses Not on filedocumented in this encounter Care Teams Rail Technician Relationship Specialty Start Date End Date Meme Steel MD [address] [place] [address] 105 [place] [address] PCP - General Pediatrics 06/05/18 04/25/22 No Pcp, Pcp PCP - General 06/08/22 07/19/22 Guadalupe Mcbride MD PCP - General Family Medicine 07/20/22 11/01/23 Sena Dominguez PA [address] [place] [address] [place] [address] PCP - BRADY Physician Visitor Services Specialist 11/02/23 Levy Barry MD [address] [place] [address] [place] [address] PCP - General Family Medicine 12/20/23 documented as of this encounter
--- OUTSIDE RECORDS SUMMARY | 2025-07-26 15:21 | XMS_ITS | Encounter Summary ---
Author Organization [facility] work ([facility]) Address [address] [place] [address] Care Team Providers Care Director Selection And Administration Name Role Phone Meme Steel MD Primary Care Provider [phone] Pcp, Pcp Primary Care Provider Unavailabl Guadalupe Bardales MD Primary Care Provider [phone] Sena Dominguez Unavailable [phone] Levy Barry MD Primary Care Provider Unavailab le Source Comments The information that you have received may contain highly confidential and/or federally protected health information. This information has been disclosed to you from records protected by [facility]. The law prohibits you from making any [...] information in error, please contact the sender immediately.[facility] ([facility]) Encounter Details Date Type Department Care Team (Late st Contact Info) Description 2004 Historical Note [facility] Short Fuze System Devyn Vásquez MD [address] [place] [address] [phone] Social History Tobacco Use Types Packs/Day Years [...] AM EST Office Visit LEATHA CARRILLO - [facility] [address] [facility] [address] [place] [phone] Brenda Clay MD [address] [facility] [address] [place] [address] 04/15/2026 10:00 AM EDT Office Visit [facility] [address] [facility] [address] [place] [address] Sena Dominguez PA [address] [facility] [place] [address] documented as of this encounter Visit Diagnoses Not on filedocumented in this encounter Care Teams Director Selection And Administration Relationship Specialty Start Date End Date Meme Steel MD [address] [place] [address] 105 [place] [address] PCP - General Pediatrics 06/05/18 04/25/22 No Pcp, Pcp PCP - General 06/08/22 07/19/22 Guadalupe Mcbride MD PCP - General Family Medicine 07/20/22 11/01/23 Sena Dominguez PA [address] [place] [address] [place] [address] PCP - BRADY Physician Cut Pressman 11/02/23 Levy Barry MD [address] [place] [address] [place] [address] PCP - General Family Medicine 12/20/23 documented as of this encounter
--- OUTSIDE RECORDS SUMMARY | 2025-07-26 15:21 | XMS_ITS | Encounter Summary ---
Author Organization [facility] work ([facility]) Address [address] [place] [address] Care Team Providers Care Java Software Name Role Phone Meme Steel MD Primary Care Provider [phone] Pcp, Pcp Primary Care Provider Unavailabl Guadalupe Bardales MD Primary Care Provider [phone] Sena Dominguez Unavailable [phone] Levy Barry MD Primary Care Provider Unavailab le Source Comments The information that you have received may contain highly confidential and/or federally protected health information. This information has been disclosed to you from records protected by [facility]. The law prohibits you from [...] information in error, please contact the sender immediately.[facility] ([facility]) Encounter Details Date Type Department Care Team (Late st Contact Info) Description 11/14/2006 Historical Note [facility] Spot Runner System Devyn Vásquez MD [address] [place] [address] [phone] Social History Tobacco Use Types Packs/Day Years [...] EST Office Visit LEATHA CARRILLO - [facility] [address] [facility] [address] [place] [phone] Brenda Clay MD [address] [facility] [address] [place] [address] 04/15/2026 10:00 AM EDT Office Visit [facility] [address] [facility] [address] [place] [address] Sena Dominguez PA [address] [facility] [place] [address] documented as of this encounter Visit Diagnoses Not on filedocumented in this encounter Care Teams Java Software Relationship Specialty Start Date End Date Meme Steel MD [address] [place] [address] 105 [place] [address] PCP - General Pediatrics 06/05/18 04/25/22 No Pcp, Pcp PCP - General 06/08/22 07/19/22 Guadalupe Mcbride MD PCP - General Family Medicine 07/20/22 11/01/23 Sena Dominguez PA [address] [place] [address] [place] [address] PCP - BRADY Physician Hole Filler 11/02/23 Levy Barry MD [address] [place] [address] [place] [address] PCP - General Family Medicine 12/20/23 documented as of this encounter
--- OUTSIDE RECORDS SUMMARY | 2025-07-26 15:21 | XMS_ITS | Encounter Summary ---
Author Organization [facility] work ([facility]) Address [address] [place] [address] Care Team Providers Care Piped Buttonhole Machine Operator Name Role Phone Meme Steel MD Primary Care Provider [phone] Pcp, Pcp Primary Care Provider Unavailabl Guadalupe Bardales MD Primary Care Provider [phone] Sena Dominguez Unavailable [phone] Levy Barry MD Primary Care Provider Unavailab le Source Comments The information that you have received may contain highly confidential and/or federally protected health information. This information has been disclosed to you from records protected by [employer]. The law prohibits you from making [...] contact the sender immediately.[facility] ([facility]) Encounter Details Date Type Department Care Team (Late st Contact Info) Description 2004 Historical Note [facility] GW Services System Devyn Vásquez MD [address] [place] [address] [phone] Social History Tobacco Use Types Packs/Day Years [...] AM EST Office Visit LEATHA CARRILLO - [facility] [address] [facility] [address] [place] [phone] Brenda Clay MD [address] [facility] [address] [place] [address] 04/15/2026 10:00 AM EDT Office Visit [facility]HA [facility] at [facility] [address] [facility] [address] [place] [address] Sena Dominguez PA [address] [facility] [place] [address] documented as of this encounter Visit Diagnoses Not on filedocumented in this encounter Care Teams Piped Buttonhole Machine Operator Relationship Specialty Start Date End Date Meme Steel MD [address] [place] [address] 105 [place] [address] PCP - General Pediatrics 06/05/18 04/25/22 No Pcp, Pcp PCP - General 06/08/22 07/19/22 Guadalupe Mcbride MD PCP - General Family Medicine 07/20/22 11/01/23 Sena Dominguez PA [address] [place] [address] [place] [address] PCP - BRADY Physician Machine Burrer 11/02/23 Levy Barry MD [address] [place] [address] [place] [address] PCP - General Family Medicine 12/20/23 documented as of this encounter
--- OUTSIDE RECORDS SUMMARY | 2025-07-26 15:21 | XMS_ITS | Encounter Summary ---
Author Organization [facility] work ([facility]) Address [address] [place] [address] Care Team Providers Care Abalone Processor Name Role Phone Meme Steel MD Primary Care Provider [phone] No Pcp, Pcp Primary Care Provider Unavailabl Guadalupe Bardales MD Primary Care Provider [phone] Sena Dominguez Unavailable [phone] Levy Barry MD Primary Care Provider Unavailab le Source Comments The information that you have received may contain highly confidential and/or federally protected health information. This information has been disclosed to you from records protected by [facility]. The law prohibits you from [...] please contact the sender immediately.[facility] ([facility]) Encounter Details Date Type Department Care Team (Late st Contact Info) Description 2004 Historical Note [facility] [employer] System Devyn Vásquez MD [address] [place] [phone] Social History Tobacco Use Types Packs/Day Years [...] AM EST Office Visit LEATHA CARRILLO - [facility] [address] [facility] [address] [place] [phone] Brenda Clay MD [address] [facility] [address] [place] [address] 04/15/2026 10:00 AM EDT Office Visit [facility] [address] [facility] [address] [place] [address] Sena Dominguez PA [address] [facility] [place] [address] documented as of this encounter Visit Diagnoses Not on filedocumented in this encounter Care Teams Abalone Processor Relationship Specialty Start Date End Date Meme Steel MD [address] [place] [address] 105 [place] [address] PCP - General Pediatrics 06/05/18 04/25/22 No Pcp, Pcp PCP - General 06/08/22 07/19/22 Guadalupe Mcbride MD PCP - General Family Medicine 07/20/22 11/01/23 Sena Dominguez PA [address] [place] [address] [place] [address] PCP - BRADY Physician Wood [employer] Wood Products Labourer 11/02/23 Levy Barry MD [address] [place] [address] [place] [address] PCP - General Family Medicine 12/20/23 documented as of this encounter
--- OUTSIDE RECORDS SUMMARY | 2025-07-26 15:21 | XMS_ITS | Encounter Summary ---
Author Organization [facility] work ([facility]) Address [address] [place] [address] Care Team Providers Care Pin Feather Machine Operator Name Role Phone Meme Steel MD Primary Care Provider No Pcp, Pcp Primary Care Provider Unavailabl Guadalupe Bardales MD Primary Care Provider [phone] Sena Dominguez Unavailable [phone] Levy Barry MD Primary Care Provider Unavailab le Source Comments The information that you have received may contain highly confidential and/or federally protected health information. This information has been disclosed to you from records protected by [facility]. The law prohibits you [...] information in error, please contact the sender immediately.[facility] ([facility]) Encounter Details Date Type Department Care Team (Late st Contact Info) Description 2004 Historical Note [facility] FrameBlast System Devyn Vásquez MD [address] [place] [address] [phone] Social History Tobacco Use Types Packs/Day Years [...] AM EST Office Visit LEATHA CARRILLO - [facility] [address] [facility] [address] [place] [phone] Brenda Clay MD [address] [facility] [address] [place] [address] 04/15/2026 10:00 AM EDT Office Visit LE[facility]HA [facility] at [facility] + [facility] [address] [facility] [address] [place] [address] Sena Dominguez PA [address] [facility] [place] [address] documented as of this encounter Visit Diagnoses Not on filedocumented in this encounter Care Teams Pin Feather Machine Operator Relationship Specialty Start Date End Date Meme Steel MD [address] [place] [address] 105 [place] [address] PCP - General Pediatrics 06/05/18 04/25/22 No Pcp, Pcp PCP - General 06/08/22 07/19/22 Guadalupe Mcbride MD PCP - General Family Medicine 07/20/22 11/01/23 Sena Dominguez PA [address] [place] [address] [place] [address] PCP - BRADY Physician Office Coordinator Receptionist 11/02/23 Levy Barry MD [address] [place] [address] [place] [address] PCP - General Family Medicine 12/20/23 documented as of this encounter
--- OUTSIDE RECORDS SUMMARY | 2025-07-26 15:21 | XMS_ITS | Encounter Summary ---
Author Organization [facility] work ([facility]) Address [address] [place] [address] Care Team Providers Care Sales And Service Agent Name Role Phone Meme Steel MD Primary Care Provider [phone] Pcp, Pcp Primary Care Provider Unavailabl Guadalupe Bardales MD Primary Care Provider [phone] Sena Dominguez Unavailable [phone] Levy Barry MD Primary Care Provider Unavailab le Source Comments The information that you have received may contain highly confidential and/or federally protected health information. This information has been disclosed to you from records protected by [facility]. The law prohibits you from making [...] information in error, please contact the sender immediately.[facility] ([facility]) Encounter Details Date Type Department Care Team (Late st Contact Info) Description 06/01/2006 Historical Note [facility] SwipeGood System Devyn Vásquez MD [address] [place] [address] [phone] Social History Tobacco Use Types Packs/Day Years [...] AM EST Office Visit LEATHA CARRILLO - [facility] [address] [facility] [address] [place] [phone] Brenda Clay MD [address] [facility] [address] [place] [address] 04/15/2026 10:00 AM EDT Office Visit LE[facility]HA [facility] at [facility] + [facility] [address] [facility] [address] [place] [address] Sena Dominguez PA [address] [facility] [place] [address] documented as of this encounter Visit Diagnoses Not on filedocumented in this encounter Care Teams Sales And Service Agent Relationship Specialty Start Date End Date Meme Steel MD [address] [place] [address] 105 [place] [address] PCP - General Pediatrics 06/05/18 04/25/22 No Pcp, Pcp PCP - General 06/08/22 07/19/22 Guadalupe Mcbride MD PCP - General Family Medicine 07/20/22 11/01/23 Sena Dominguez PA [address] [place] [address] [place] [address] PCP - BRADY Physician Chief Operating Officer 11/02/23 Levy Barry MD [address] [place] [address] [place] [address] PCP - General Family Medicine 12/20/23 documented as of this encounter
--- OUTSIDE RECORDS SUMMARY | 2025-07-26 15:21 | XMS_ITS | Encounter Summary ---
Author Organization [facility] work ([facility]) Address [address] [place] [address] Care Team Providers Care Professor Of Marketing Name Role Phone Meme Steel MD Primary Care Provider [phone] Pcp, Pcp Primary Care Provider Unavailabl Guadalupe Bardales MD Primary Care Provider [phone] Sena Dominguez Unavailable [phone] Levy Barry MD Primary Care Provider Unavailab le Source Comments The information that you have received may contain highly confidential and/or federally protected health information. This information has been disclosed to you from records protected by [facility]. The law prohibits you from making [...] information in error, please contact the sender immediately.[facility] ([facility]) Encounter Details Date Type Department Care Team (Late st Contact Info) Description 2004 Historical Note SVMG Netbyte Hosting System Devyn Vásquez MD [address] [place] [address] [phone] Social History Tobacco Use Types Packs/Day Years [...] AM EST Office Visit LEATHA CARRILLO - [facility] [address] [facility] [address] [facility] [address] [place] [phone] Brenda Clay MD [address] [facility] [address] [place] [address] 04/15/2026 10:00 AM EDT Office Visit [facility] [address] [facility] [place] [address] Sena Dominguez PA [address] [facility] [facility] [place] [address] documented as of this encounter Visit Diagnoses Not on filedocumented in this encounter Care Teams Professor Of Marketing Relationship Specialty Start Date End Date Meme Steel MD [address] [place] [address] 105 [place] [address] PCP - General Pediatrics 06/05/18 04/25/22 No Pcp, Pcp PCP - General 06/08/22 07/19/22 Guadalupe Mcbride MD PCP - General Family Medicine 07/20/22 11/01/23 Sena Domingeuz PA [address] [place] [address] [place] [address] PCP - BRADY Physician Assistance Representative 11/02/23 Levy Barry MD [address] [place] [address] [place] [address] PCP - General Family Medicine 12/20/23 documented as of this encounter
--- OUTSIDE RECORDS SUMMARY | 2025-07-26 15:21 | XMS_ITS | Encounter Summary ---
Author Organization [facility] work ([facility]) Address [address] [place] [address] Care Team Providers Care Internist Medical Doctor Md Name Role Phone Meme Steel MD Primary Care Provider No Pcp, Pcp Primary Care Provider Unavailabl Guadalupe Bardales MD Primary Care Provider [phone] Sena Dominguez Unavailable [phone] Levy Barry MD Primary Care Provider Unavailab le Source Comments The information that you have received may contain highly confidential and/or federally protected health information. This information has been disclosed to you from records protected by [facility]. The law prohibits you from making [...] information in error, please contact the sender immediately.[facility] ([facility]) Encounter Details Date Type Department Care Team (Late st Contact Info) Description 03/11/2007 Historical Note SVMG KimLink Auto Detailing System Devyn Vásquez MD [address] [place] [address] [phone] Social History Tobacco Use Types Packs/Day Years [...] AM EST Office Visit LEATHA CARRILLO - [facility] [address] [facility] [address] [place] [phone] Brenda Clay MD [address] [facility] [address] [place] [address] 04/15/2026 10:00 AM EDT Office Visit [facility]HA [facility] at [facility] [address] [facility] [address] [place] [address] Sena Dominguez PA [address] [facility] [place] [address] documented as of this encounter Visit Diagnoses Not on filedocumented in this encounter Care Teams Internist Medical Doctor Md Relationship Specialty Start Date End Date Meme Steel MD [address] [place] [address] 105 [place] [address] PCP - General Pediatrics 06/05/18 04/25/22 No Pcp, Pcp PCP - General 06/08/22 07/19/22 Guadalupe Mcbride MD PCP - General Family Medicine 07/20/22 11/01/23 Sena Dominguez PA [address] [place] [address] [place] [address] PCP - BRADY Physician Auto Leasing Manager 11/02/23 Levy Barry MD [address] [place] [address] [place] [address] PCP - General Family Medicine 12/20/23 documented as of this encounter
--- OUTSIDE RECORDS SUMMARY | 2025-07-26 15:21 | XMS_ITS | Encounter Summary ---
Author Organization [facility] work ([facility]) Address [address] [place] [address] Care Team Providers Care Mechanical Specialist Name Role Phone Meme Steel MD Primary Care Provider [phone] Pcp, Pcp Primary Care Provider Unavailabl Guadalupe Bardales MD Primary Care Provider [phone] Sena Dominguez Unavailable [phone] Levy Barry MD Primary Care Provider Unavailab le Source Comments The information that you have received may contain highly confidential and/or federally protected health information. This information has been disclosed to you from records protected by [facility]. The law prohibits you [...] information in error, please contact the sender immediately.[facility] ([facility]) Encounter Details Date Type Department Care Team (Late st Contact Info) Description 11/14/2006 Historical Note [facility]G Red-M Group System Devyn Vásquez MD [address] [place] [address] [phone] Social History Tobacco Use Types Packs/Day Years [...] AM EST Office Visit LEATHA CARRILLO - [facility] [address] [facility] [address] [place] [phone] Brenda Clay MD [address] [facility] [address] [place] [address] 04/15/2026 10:00 AM EDT Office Visit LE[facility]HA [facility] at [facility] [address] [facility] [address] [place] [address] Sena Dominguez PA [address] [facility] [place] [address] documented as of this encounter Visit Diagnoses Not on filedocumented in this encounter Care Teams Mechanical Specialist Relationship Specialty Start Date End Date Meme Steel MD [address] [place] [address] 105 [place] [address] PCP - General Pediatrics 06/05/18 04/25/22 No Pcp, Pcp PCP - General 06/08/22 07/19/22 Guadalupe Mcbride MD PCP - General Family Medicine 07/20/22 11/01/23 Sena Dominguez PA [address] [place] [address] [place] [address] PCP - BRADY Physician Integrated Circuit Layout Designer 11/02/23 Levy Barry MD [address] [place] [address] [place] [address] PCP - General Family Medicine 12/20/23 documented as of this encounter
--- OUTSIDE RECORDS SUMMARY | 2025-07-26 15:21 | XMS_ITS | Encounter Summary ---
Author Organization [facility] work ([facility]) Address [address] [place] [address] Care Team Providers Care Brim Edge Trimmer Name Role Phone Meme Steel MD Primary Care Provider [phone] Pcp, Pcp Primary Care Provider Unavailabl Guadalupe Bardales MD Primary Care Provider Sena Dominguez Unavailable [phone] Levy Barry MD Primary Care Provider Unavailab le Source Comments The information that you have received may contain highly confidential and/or federally protected health information. This information has been disclosed to you from records protected by [facility]. The law prohibits you from making [...] please contact the sender immediately.[facility] ([facility]) Encounter Details Date Type Department Care Team (Late st Contact Info) Description 2004 Historical Note SVMG QlikTech System Devyn Vásquez MD [address] [place] [address] [phone] Social History Tobacco Use Types Packs/Day Years [...] Office Visit LEATHA CARRILLO - [facility] [address] [facility] [address] [place] [phone] Brenda Clay MD [address] [facility] [address] [place] [address] 04/15/2026 10:00 AM EDT Office Visit [facility] [address] [facility] [address] [place] [address] Sena Dominguez PA [address] [facility] [place] [address] documented as of this encounter Visit Diagnoses Not on filedocumented in this encounter Care Teams Brim Edge Trimmer Relationship Specialty Start Date End Date Meme Steel MD [address] [place] [address] 105 [place] [address] PCP - General Pediatrics 06/05/18 04/25/22 No Pcp, Pcp PCP - General 06/08/22 07/19/22 Guadalupe Mcbride MD PCP - General Family Medicine 07/20/22 11/01/23 Sena Dominguez PA [address] [place] [address] [place] [address] PCP - BRADY Physician Licensed Funeral Director 11/02/23 Levy Barry MD [address] [place] [address] [place] [address] PCP - General Family Medicine 12/20/23 documented as of this encounter
--- OUTSIDE RECORDS SUMMARY | 2025-07-26 15:21 | XMS_ITS | Encounter Summary ---
Author Organization [facility] [address] [facility] work ([facility]) Address [address] [place] [address] Care Team Providers Care Silk Opener Name Role Phone Meme Steel MD Primary Care Provider [phone] No Pcp, Pcp Primary Care Provider Unavailabl Guadalupe Bardales MD Primary Care Provider [phone] Sena Dominguez Unavailable [phone] Levy Barry MD Primary Care Provider Unavailab le Source Comments The information that you have received may contain highly confidential and/or federally protected health information. This information has been disclosed to you from records protected by [facility]. The law prohibits you [...] information in error, please contact the sender immediately.[facility] ([facility]) Encounter Details Date Type Department Care Team (Late st Contact Info) Description 2004 Historical Note SVMG Wallept System Devyn Vásquez MD [address] [place] [address] [phone] Social History Tobacco Use Types Packs/Day Years [...] AM EST Office Visit LEATHA CARRILLO - [facility] [address] [facility] [address] [place] [phone] Brenda Clay MD [address] [facility] [address] [place] [address] 04/15/2026 10:00 AM EDT Office Visit [facility]ATHA [facility] at [facility] + [facility] [address] [facility] [address] [place] [address] Sena Dominguez PA [address] [facility] [place] [address] documented as of this encounter Visit Diagnoses Not on filedocumented in this encounter Care Teams Silk Opener Relationship Specialty Start Date End Date Meme Steel MD [address] [place] [address] 105 [place] [address] PCP - General Pediatrics 06/05/18 04/25/22 No Pcp, Pcp PCP - General 06/08/22 07/19/22 Guadalupe Mcbride MD PCP - General Family Medicine 07/20/22 11/01/23 Sena Dominguez PA [address] [place] [address] [place] [address] PCP - BRADY Physician Ed Transporter 11/02/23 Levy Barry MD [address] [place] [address] [place] [address] PCP - General Family Medicine 12/20/23 documented as of this encounter
--- OUTSIDE RECORDS SUMMARY | 2025-07-26 15:21 | XMS_ITS | Encounter Summary ---
Author Organization [facility] work ([facility]) Address [address] [place] [address] Care Team Providers Care Solar Energy Specialist Name Role Phone Meme Steel MD Primary Care Provider [phone] Pcp, Pcp Primary Care Provider Unavailabl Guadalupe Bardales MD Primary Care Provider [phone] Sena Dominguez Unavailable [phone] Levy Barry MD Primary Care Provider Unavailab le Source Comments The information that you have received may contain highly confidential and/or federally protected health information. This information has been disclosed to you from records protected by [facility]. The law prohibits you from making [...] information in error, please contact the sender immediately.[facility] ([facility]) Encounter Details Date Type Department Care Team (Late st Contact Info) Description 05/29/2006 Historical Note SVMG Restaurant.com System Devyn Vásquez MD [address] [place] [address] [phone] Social History Tobacco Use Types Packs/Day Years [...] AM EST Office Visit LEATHA CARRILLO - [facility] [address] [facility] [address] [place] [phone] Brenda Clay MD [address] [facility] [address] [place] [phone] 04/15/2026 10:00 AM EDT Office Visit [facility] [address] [facility] [address] [place] [address] Sena Dominguez PA [address] [facility] [place] [address] documented as of this encounter Visit Diagnoses Not on filedocumented in this encounter Care Teams Solar Energy Specialist Relationship Specialty Start Date End Date Meme Steel MD [address] [place] [address] 105 [place] [address] PCP - General Pediatrics 06/05/18 04/25/22 No Pcp, Pcp PCP - General 06/08/22 07/19/22 Guadalupe Mcbride MD PCP - General Family Medicine 07/20/22 11/01/23 Sena Dominguez PA [address] [place] [address] [place] [address] PCP - BRADY Physician Recreation Attendant 11/02/23 Levy Barry MD [address] [place] [address] [place] [address] PCP - General Family Medicine 12/20/23 documented as of this encounter
--- OUTSIDE RECORDS SUMMARY | 2025-07-26 15:21 | XMS_ITS | Encounter Summary ---
Author Organization [facility] work ([facility]) Address [address] [place] [address] Care Team Providers Care Debeader Name Role Phone Meme Steel MD Primary Care Provider [phone] Pcp, Pcp Primary Care Provider Unavailabl Guadalupe Bardales MD Primary Care Provider [phone] Sena Dominguez Unavailable [phone] Levy Barry MD Primary Care Provider Unavailab le Source Comments The information that you have received may contain highly confidential and/or federally protected health information. This information has been disclosed to you from records protected by [facility] [facility]. The law prohibits you from making any [...] [facility] ([facility]) Encounter Details Date Type Department Care Team (Late st Contact Info) Description 06/26/2007 Historical Note SVMG Amba Defence System Devyn Vásquez MD [address] [place] [address] [phone] Social History Tobacco Use Types Packs/Day Years [...] LEATHA CARRILLO - [facility] [address] [facility] [address] [place] [phone] Brenda Clay MD [address] [facility] [address] [place] [address] 04/15/2026 10:00 AM EDT Office Visit LEATHA [facility] at [facility] [address] [facility] [address] [place] [address] Sena Dominguez PA [address] [facility] [place] [address] documented as of this encounter Visit Diagnoses Not on filedocumented in this encounter Care Teams Debeader Relationship Specialty Start Date End Date Meme Steel MD [address] [place] [address] 105 [place] [address] PCP - General Pediatrics 06/05/18 04/25/22 No Pcp, Pcp PCP - General 06/08/22 07/19/22 Guadalupe Mcbride MD PCP - General Family Medicine 07/20/22 11/01/23 Sena Dominguez PA [address] [place] [address] [place] [address] PCP - BRADY Physician Save All Operator 11/02/23 Levy Barry MD [address] [place] [address] [place] [address] PCP - General Family Medicine 12/20/23 documented as of this encounter
--- OUTSIDE RECORDS SUMMARY | 2025-07-26 15:21 | XMS_ITS | Encounter Summary ---
Author Organization [facility] work ([facility]) Address [address] [place] [address] Care Team Providers Care County Manager Name Role Phone eMme Steel MD Primary Care Provider [phone] Pcp, Pcp Primary Care Provider Unavailabl Guadalupe Bardales MD Primary Care Provider [phone] Sena Dominguez Unavailable [phone] Levy Barry MD Primary Care Provider Unavailab le Source Comments The information that you have received may contain highly confidential and/or federally protected health information. This information has been disclosed to you from records protected by [facility]. The law prohibits you from making [...] in error, please contact the sender immediately.[facility] ([facility]) Encounter Details Date Type Department Care Team (Late st Contact Info) Description 2004 Historical Note SVMG Jamba! System Devyn Vásquez MD [address] [place] [address] [phone] Social History Tobacco Use Types Packs/Day Years [...] LEATHA CARRILLO - [facility] [address] [facility] [address] [place] [phone] Brenda Clay MD [address] [facility] [address] [place] [address] 04/15/2026 10:00 AM EDT Office Visit LEATHA [facility] at [facility] [address] [facility] [address] [place] [address] Sena Dominguez PA [address] [facility] [place] [address] documented as of this encounter Visit Diagnoses Not on filedocumented in this encounter Care Teams County Manager Relationship Specialty Start Date End Date Meme Steel MD [address] [place] [address] 105 [place] [address] PCP - General Pediatrics 06/05/18 04/25/22 No Pcp, Pcp PCP - General 06/08/22 07/19/22 Guadalupe Mcbride MD PCP - General Family Medicine 07/20/22 11/01/23 Sena Dominguez PA [address] [place] [address] [place] [address] PCP - BRADY Physician National Sales Representative 11/02/23 Levy Barry MD [address] [place] [address] [place] [address] PCP - General Family Medicine 12/20/23 documented as of this encounter
--- OUTSIDE RECORDS SUMMARY | 2025-07-26 15:21 | XMS_ITS | Encounter Summary ---
Author Organization [facility] work ([facility]) Address [address] [place] [address] Care Team Providers Care Machine Clothing Worker Name Role Phone Meme Steel MD Primary Care Provider [phone] No Pcp, Pcp Primary Care Provider Unavailabl Guadalupe Bardales MD Primary Care Provider [phone] Sena Dominguez Unavailable [phone] Levy Barry MD Primary Care Provider Unavailab le Source Comments The information that you have received may contain highly confidential and/or federally protected health information. This information has been disclosed to you from records protected by [facility]. The law prohibits you from making [...] information in error, please contact the sender immediately.[facility] ([facility]) Encounter Details Date Type Department Care Team (Late st Contact Info) Description 2004 Historical Note SVMG MSU Business Incubator System Devyn Vásquez MD [address] [place] [address] [phone] Social History Tobacco Use Types Packs/Day Years [...] AM EST Office Visit LEATHA CARRILLO - [facility] [address] [facility] [address] [place] [phone] Brenda Clay MD [address] [facility] [address] [place] [address] 04/15/2026 10:00 AM EDT Office Visit LE[facility]HA [facility] at [facility] [address] [facility] [address] [place] [address] Sena Dominguez PA [address] [facility] [place] [address] documented as of this encounter Visit Diagnoses Not on filedocumented in this encounter Care Teams Machine Clothing Worker Relationship Specialty Start Date End Date Meme Steel MD [address] [place] [address] 105 [place] [address] PCP - General Pediatrics 06/05/18 04/25/22 No Pcp, Pcp PCP - General 06/08/22 07/19/22 Guadalupe Mcbride MD PCP - General Family Medicine 07/20/22 11/01/23 Sena Dominguez PA [address] [place] [address] [place] [address] PCP - BRADY Physician Service Tech 11/02/23 Levy Barry MD [address] [place] [address] [place] [address] PCP - General Family Medicine 12/20/23 documented as of this encounter
--- OUTSIDE RECORDS SUMMARY | 2025-07-26 15:21 | XMS_ITS | Encounter Summary ---
Author Organization [facility] work ([facility]) Address [address] [place] [address] Care Team Providers Care Rehab/Pre Vocational Counselor Name Role Phone Meme Steel MD Primary Care Provider [phone] No Pcp, Pcp Primary Care Provider Unavailabl Guadalupe Bardales MD Primary Care Provider [phone] Sena Dominguez Unavailable [phone] Levy Barry MD Primary Care Provider Unavailab le Source Comments The information that you have received may contain highly confidential and/or federally protected health information. This information has been disclosed to you from records protected by [facility]. The law prohibits you from [...] please contact the sender immediately.[facility] ([facility]) Encounter Details Date Type Department Care Team (Late st Contact Info) Description 06/01/2006 Historical Note SVMG Diagnostic Innovations System Devyn Vásquez MD [address] [place] [address] [phone] Social History Tobacco Use Types Packs/Day Years [...] AM EST Office Visit LEATHA CARRILLO - [facility] [address] [facility] [address] [place] [phone] Brenda Clay MD [address] [facility] [address] [place] [phone] 04/15/2026 10:00 AM EDT Office Visit [facility] + [facility] [address] [facility] [address] [place] [address] Sena Dominguez PA [address] [facility] [place] [address] documented as of this encounter Visit Diagnoses Not on filedocumented in this encounter Care Teams Rehab/Pre Vocational Counselor Relationship Specialty Start Date End Date Meme Steel MD [address] [place] [address] 105 [place] [address] PCP - General Pediatrics 06/05/18 04/25/22 No Pcp, Pcp PCP - General 06/08/22 07/19/22 Guadalupe Mcbride MD PCP - General Family Medicine 07/20/22 11/01/23 Sena Dominguez PA [address] [place] [address] [place] [address] PCP - BRADY Physician Dried Yeast Supervisor 11/02/23 Levy Barry MD [address] [place] [address] [place] [address] PCP - General Family Medicine 12/20/23 documented as of this encounter
--- OUTSIDE RECORDS SUMMARY | 2025-07-26 15:21 | XMS_ITS | Encounter Summary ---
Author Organization [facility] work ([facility]) Address [address] [place] [address] Care Team Providers Care Behavioral Pediatrician Name Role Phone Meme Steel MD Primary Care Provider [phone] Pcp, Pcp Primary Care Provider Unavailabl Guadalupe Bardales MD Primary Care Provider [phone] Sena Dominguez Unavailable [phone] Levy Barry MD Primary Care Provider Unavailab le Source Comments The information that you have received may contain highly confidential and/or federally protected health information. This information has been disclosed to you from records protected by [facility]. The law prohibits you from making [...] information in error, please contact the sender immediately.[facility] ([facility]) Encounter Details Date Type Department Care Team (Late st Contact Info) Description 2004 Historical Note [facility] [employer] System Devyn Vásquez MD [address] [place] [address] [phone] Social History Tobacco Use Types Packs/Day Years [...] - [facility] at [facility] [address] [facility] [address] [place] [phone] Brenda Clay MD [address] [facility] [address] [place] [address] 04/15/2026 10:00 AM EDT Office Visit [facility] [address] [facility] [address] [place] [address] Sena Dominguez PA [address] [facility] [place] [address] documented as of this encounter Visit Diagnoses Not on filedocumented in this encounter Care Teams Behavioral Pediatrician Relationship Specialty Start Date End Date Meme Steel MD [address] [place] [address] 105 [place] [address] PCP - General Pediatrics 06/05/18 04/25/22 No Pcp, Pcp PCP - General 06/08/22 07/19/22 Guadalupe Mcbride MD PCP - General Family Medicine 07/20/22 11/01/23 Sena Domignuez PA [address] [place] [address] [place] [address] PCP - BRADY Physician Fresh Foods Technician 11/02/23 Levy Barry MD [address] [place] [address] [place] [address] PCP - General Family Medicine 12/20/23 documented as of this encounter
--- OUTSIDE RECORDS SUMMARY | 2025-07-26 15:21 | XMS_ITS | Encounter Summary ---
Author Organization [facility] work ([facility]) Address [address] [place] [address] Care Team Providers Care Die Cast Patternmaker Name Role Phone Meme Steel MD Primary Care Provider [phone] Pcp, Pcp Primary Care Provider Unavailabl Guadalupe Bardales MD Primary Care Provider [phone] Sena Dominguez Unavailable [phone] Levy Barry MD Primary Care Provider Unavailab le Source Comments The information that you have received may contain highly confidential and/or federally protected health information. This information has been disclosed to you from records protected by [facility]. The law prohibits you from [...] information in error, please contact the sender immediately.[facility] ([facility]) Encounter Details Date Type Department Care Team (Late st Contact Info) Description 05/29/2006 Historical Note SVMG [email or web address] System Devyn Vásquez MD [address] [place] [address] [phone] Social History Tobacco Use Types Packs/Day Years [...] AM EST Office Visit LEATHA CARRILLO - [facility] [address] [facility] [address] [place] [phone] Brenda Clay MD [address] [facility] [address] [place] [phone] 04/15/2026 10:00 AM EDT Office Visit [facility] [address] [facility] [address] [place] [address] Sena Dominguez PA [address] [facility] [place] [address] documented as of this encounter Visit Diagnoses Not on filedocumented in this encounter Care Teams Die Cast Patternmaker Relationship Specialty Start Date End Date Meme Steel MD [address] [place] [address] 105 [place] [address] PCP - General Pediatrics 06/05/18 04/25/22 No Pcp, Pcp PCP - General 06/08/22 07/19/22 Guadalupe Mcbride MD PCP - General Family Medicine 07/20/22 11/01/23 Sena Dominguez PA [address] [place] [address] [place] [address] PCP - BRADY Physician Franchise Sales Representative 11/02/23 Levy Barry MD [address] [place] [address] [place] [address] PCP - General Family Medicine 12/20/23 documented as of this encounter
--- OUTSIDE RECORDS SUMMARY | 2025-07-26 15:21 | XMS_ITS | Encounter Summary ---
Author Organization [facility] work ([facility]) Address [address] [place] [address] Care Team Providers Care Stove Cleaner Name Role Phone Meme Steel MD Primary Care Provider [phone] Pcp, Pcp Primary Care Provider Unavailabl Guadalupe Bardales MD Primary Care Provider [phone] Sena Dominguez Unavailable [phone] Levy Barry MD Primary Care Provider Unavailab le Source Comments The information that you have received may contain highly confidential and/or federally protected health information. This information has been disclosed to you from records protected by [facility]. The law prohibits you from making [...] information in error, please contact the sender immediately.[facility] ([facility]) Encounter Details Date Type Department Care Team (Late st Contact Info) Description 2004 Historical Note SVMG [employer] System Devyn Vásquez MD [address] [place] [address] [phone] Social History Tobacco Use Types Packs/Day Years [...] CARRILLO - [facility] at [facility] [address] [facility] [address] [place] [phone] Brenda Clay MD [address] [facility] [address] [place] [address] 04/15/2026 10:00 AM EDT Office Visit [facility] at [facility] + [facility] [address] [facility] [address] [place] [address] Sena Dominguez PA [address] [facility] [place] [address] documented as of this encounter Visit Diagnoses Not on filedocumented in this encounter Care Teams Stove Cleaner Relationship Specialty Start Date End Date Meme Steel MD [address] [place] [address] 105 [place] [address] PCP - General Pediatrics 06/05/18 04/25/22 No Pcp, Pcp PCP - General 06/08/22 07/19/22 Guadalupe Mcbride MD PCP - General Family Medicine 07/20/22 11/01/23 Sena Dominguez PA [address] [place] [address] [place] [address] PCP - BRADY Physician Glass Lathe Operator 11/02/23 Levy Barry MD [address] [place] [address] [place] [address] PCP - General Family Medicine 12/20/23 documented as of this encounter
--- OUTSIDE RECORDS SUMMARY | 2025-07-26 15:21 | XMS_ITS | Encounter Summary ---
Author Organization [facility] work ([facility]) Address [address] [place] [address] Care Team Providers Care Wiper Blender Name Role Phone Meme Steel MD Primary Care Provider [phone] No Pcp, Pcp Primary Care Provider Unavailabl Guadalupe Bardales MD Primary Care Provider [phone] Sena Dominguez Unavailable [phone] Levy Barry MD Primary Care Provider Unavailab le Source Comments The information that you have received may contain highly confidential and/or federally protected health information. This information has been disclosed to you from records protected by [facility]. The law prohibits you from making [...] information in error, please contact the sender immediately.[facility] ([facility]) Encounter Details Date Type Department Care Team (Late st Contact Info) Description 11/09/2006 Historical Note [facility] [employer] System Devyn Vásquez MD [address] [place] [address] [phone] Social History Tobacco Use Types Packs/Day Years [...] AM EST Office Visit LEATHA CARRILLO - [facility] at [facility] [address] [facility] [address] [place] [phone] Brenda Clay MD [address] [facility] [address] [place] [address] 04/15/2026 10:00 AM EDT Office Visit LE[facility]HA [facility] at [facility] + [facility] [address] [facility] [address] [place] [address] Sena Dominguez PA [address] [facility] [place] [address] documented as of this encounter Visit Diagnoses Not on filedocumented in this encounter Care Teams Wiper Blender Relationship Specialty Start Date End Date Meme Steel MD [address] [place] [address] 105 [place] [address] PCP - General Pediatrics 06/05/18 04/25/22 No Pcp, Pcp PCP - General 06/08/22 07/19/22 Guadalupe Mcbride MD PCP - General Family Medicine 07/20/22 11/01/23 Sena Dominguez PA [address] [place] [address] [place] [address] PCP - BRADY Physician Sourcing Specialist 11/02/23 Levy Barry MD [address] [place] [address] [place] [address] PCP - General Family Medicine 12/20/23 documented as of this encounter
--- OUTSIDE RECORDS SUMMARY | 2025-07-26 15:21 | XMS_ITS | Encounter Summary ---
Author Organization [facility] work ([facility] Address [address] [place] [address] Care Team Providers Care Control Clerk Head Name Role Phone Meme Steel MD Primary Care Provider [phone] No Pcp, Pcp Primary Care Provider Unavailabl Guadalupe Bardales MD Primary Care Provider [phone] Sena Dominguez Unavailable [phone] Levy Barry MD Primary Care Provider Unavailab le Source Comments The information that you have received may contain highly confidential and/or federally protected health information. This information has been disclosed to you from records protected by [facility]. The law prohibits you from making [...] information in error, please contact the sender immediately.[facility] ([facility] Encounter Details Date Type Department Care Team (Late st Contact Info) Description 11/16/2006 Historical Note SVMG [employer] System Devyn Vásquez MD [address] [place] [address] [phone] Social History Tobacco Use Types Packs/Day Years [...] AM EST Office Visit LEATHA CARRILLO - [facility] [address] [facility] [address] [place] [phone] Brenda Clay MD [address] [facility] [address] [place] [address] 04/15/2026 10:00 AM EDT Office Visit [facility]HA [facility] at [facility] + [facility] [address] [facility] [address] [place] [address] Sena Dominguez PA [address] [facility] [place] [address] documented as of this encounter Visit Diagnoses Not on filedocumented in this encounter Care Teams Control Clerk Head Relationship Specialty Start Date End Date Meme Steel MD [address] [place] [address] 105 [place] [address] PCP - General Pediatrics 06/05/18 04/25/22 No Pcp, Pcp PCP - General 06/08/22 07/19/22 Guadalupe Mcbride MD PCP - General Family Medicine 07/20/22 11/01/23 Sena Dominguez PA [address] [place] [address] [place] [address] PCP - BRADY Physician Floor Covering Contractor 11/02/23 Levy Barry MD [address] [place] [address] [place] [address] PCP - General Family Medicine 12/20/23 documented as of this encounter
--- OUTSIDE RECORDS SUMMARY | 2025-07-26 15:21 | XMS_ITS | Encounter Summary ---
Author Organization [facility] work ([facility]) Address [address] [place] [address] Care Team Providers Care Medical Massage Therapist Name Role Phone Meme Steel MD Primary Care Provider [phone] Pcp, Pcp Primary Care Provider Unavailabl Guadalupe Bardales MD Primary Care Provider [phone] Sena Dominguez Unavailable [phone] Levy Barry MD Primary Care Provider Unavailab le Source Comments The information that you have received may contain highly confidential and/or federally protected health information. This information has been disclosed to you from records protected by [facility]. The law prohibits you from making [...] information in error, please contact the sender immediately.[facility] ([facility]) Encounter Details Date Type Department Care Team (Late st Contact Info) Description 2004 Historical Note SVMG [employer] System Devyn Vásquez MD [address] [place] [address] [phone] Social History Tobacco Use Types Packs/Day Years [...] Description 10/10/2025 10:00 AM EST Office Visit ELATHA CARRILLO - [facility] [employer] [address] [facility] [address] [place] [phone] Brenda Clay MD [address] [facility] [address] [place] [address] 04/15/2026 10:00 AM EDT Office Visit LE[facility]HA [facility] at [facility] + [facility] [address] [facility] [address] [place] [address] Sena Dominguez PA [address] [facility] [place] [address] documented as of this encounter Visit Diagnoses Not on filedocumented in this encounter Care Teams Medical Massage Therapist Relationship Specialty Start Date End Date Meme Steel MD [address] [place] [address] 105 [place] [address] PCP - General Pediatrics 06/05/18 04/25/22 No Pcp, Pcp PCP - General 06/08/22 07/19/22 Guadalupe Mcbride MD PCP - General Family Medicine 07/20/22 11/01/23 Sena Doimnguez PA [address] [place] [address] [place] [address] PCP - BRADY Physician Solar Sales Energy Advisor 11/02/23 Levy Barry MD [address] [place] [address] [place] [address] PCP - General Family Medicine 12/20/23 documented as of this encounter
--- OUTSIDE RECORDS SUMMARY | 2025-07-26 15:21 | XMS_ITS | Encounter Summary ---
Author Organization [facility] work ([facility]) Address [address] [place] [address] Care Team Providers Care Track Moving Machine Operator Name Role Phone Meme Steel MD Primary Care Provider [phone] No Pcp, Pcp Primary Care Provider Unavailabl Guadalupe Bardales MD Primary Care Provider [phone] Sena Dominguez Unavailable [phone] Levy Barry MD Primary Care Provider Unavailab le Source Comments The information that you have received may contain highly confidential and/or federally protected health information. This information has been disclosed to you from records protected by [facility]. The law prohibits you from making [...] in error, please contact the sender immediately.[facility] ([facility]) Encounter Details Date Type Department Care Team (Late st Contact Info) Description 2004 Historical Note SVMG [employer] System Devyn Vásquez MD [address] [place] [address] [phone] Social History Tobacco Use Types Packs/Day Years [...] AM EST Office Visit LEATHA CARRILLO - [facility] [address] [facility] [address] [place] [phone] Brenda Clay MD [address] [facility] [address] [place] [address] 04/15/2026 10:00 AM EDT Office Visit LEATHA [facility] at [facility] + [facility] [address] [facility] [address] [place] [address] Sena Dominguez PA [address] [facility] [place] [address] documented as of this encounter Visit Diagnoses Not on filedocumented in this encounter Care Teams Track Moving Machine Operator Relationship Specialty Start Date End Date Meme Steel MD [address] [place] [address] 105 [place] [address] PCP - General Pediatrics 06/05/18 04/25/22 No Pcp, Pcp PCP - General 06/08/22 07/19/22 Guadalupe Mcbride MD PCP - General Family Medicine 07/20/22 11/01/23 Sena Dominguez PA [address] [place] [address] [place] [address] PCP - BRADY Physician Datastage Architect 11/02/23 Levy Barry MD [address] [place] [address] [place] [address] PCP - General Family Medicine 12/20/23 documented as of this encounter
--- OUTSIDE RECORDS SUMMARY | 2025-07-26 15:21 | XMS_ITS | Encounter Summary ---
Author Organization [facility] work ([facility]) Address [address] [place] [address] Care Team Providers Care Managing Broker Name Role Phone Meme Steel MD Primary Care Provider [phone] Pcp, Pcp Primary Care Provider Unavailabl Guadalupe Bardales MD Primary Care Provider [phone] Sena Dominguez Unavailable [phone] Levy Barry MD Primary Care Provider Unavailab le Source Comments The information that you have received may contain highly confidential and/or federally protected health information. This information has been disclosed to you from records protected by [facility]. The law prohibits you from making any [...] contact the sender immediately.[facility] ([facility]) Encounter Details Date Type Department Care Team (Late st Contact Info) Description 2004 Historical Note SVMG [employer] System Devyn Vásquez MD [address] [place] [address] [phone] Social History Tobacco Use Types Packs/Day Years [...] AM EST Office Visit LEATHA CARRILLO - [facility] [address] [facility] [address] [place] [phone] Brenda Clay MD [address] [facility] [address] [place] [address] 04/15/2026 10:00 AM EDT Office Visit LEATHA [facility] at [facility] + [facility] [address] [facility] [address] [place] [address] Sena Dominguez PA [address] [facility] [place] [address] documented as of this encounter Visit Diagnoses Not on filedocumented in this encounter Care Teams Managing Broker Relationship Specialty Start Date End Date Meme Steel MD [address] [place] [address] 105 [place] [address] PCP - General Pediatrics 06/05/18 04/25/22 No Pcp, Pcp PCP - General 06/08/22 07/19/22 Guadalupe Mcbride MD PCP - General Family Medicine 07/20/22 11/01/23 Sena Dominguez PA [address] [place] [address] [place] [address] PCP - BRADY Physician Tufting Machine Fixer 11/02/23 Levy Barry MD [address] [place] [address] [place] [address] PCP - General Family Medicine 12/20/23 documented as of this encounter
--- OUTSIDE RECORDS SUMMARY | 2025-07-26 15:21 | XMS_ITS | Encounter Summary ---
Author Organization [facility] work ([facility]) Address [address] [address] [place] [address] Care Team Providers Care Welfare Visitor Name Role Phone Meme Steel MD Primary Care Provider [phone] No Pcp, Pcp Primary Care Provider Unavailabl Guadalupe Bardales MD Primary Care Provider [phone] Sena Dominguez Unavailable [phone] Levy Barry MD Primary Care Provider Unavailab le Source Comments The information that you have received may contain highly confidential and/or federally protected health information. This information has been disclosed to you from records protected by [facility]. The law prohibits you from making [...] in error, please contact the sender immediately.[facility] ([facility]) Encounter Details Date Type Department Care Team (Late st Contact Info) Description 2004 Historical Note SVMG [employer] System Devyn Vásquez MD [address] [place] [address] [phone] Social History Tobacco Use Types Packs/Day Years [...] EST Office Visit LEATHA CARRILLO - [facility] [address] [facility] [address] [place] [phone] Brenda Clay MD [address] [facility] [address] [place] [address] 04/15/2026 10:00 AM EDT Office Visit LEATHA [facility] at [facility] + [facility] [address] [facility] [address] [place] [address] Sena Dominguez PA [address] [facility] [place] [address] documented as of this encounter Visit Diagnoses Not on filedocumented in this encounter Care Teams Welfare Visitor Relationship Specialty Start Date End Date Meme Steel MD [address] [place] [address] 105 [place] [address] PCP - General Pediatrics 06/05/18 04/25/22 No Pcp, Pcp PCP - General 06/08/22 07/19/22 Guadalupe Mcbride MD PCP - General Family Medicine 07/20/22 11/01/23 Sena Dominguez PA [address] [place] [address] [place] [address] PCP - BRADY Physician Side Show Entertainer 11/02/23 Levy Barry MD [address] [place] [address] [place] [address] PCP - General Family Medicine 12/20/23 documented as of this encounter
--- OUTSIDE RECORDS SUMMARY | 2025-07-26 15:21 | XMS_ITS | Encounter Summary ---
Author Organization [facility] work ([facility]) Address [address] [place] [address] Care Team Providers Care Buddhist Monk Name Role Phone Meme Steel MD Primary Care Provider [phone] Pcp, Pcp Primary Care Provider Unavailabl Guadalupe Bardales MD Primary Care Provider [phone] Sena Dominguez Unavailable [phone] Levy Barry MD Primary Care Provider Unavailab le Source Comments The information that you have received may contain highly confidential and/or federally protected health information. This information has been disclosed to you from records protected by [facility]. The law prohibits you from making [...] information in error, please contact the sender immediately.[facility] ([facility]) Encounter Details Date Type Department Care Team (Late st Contact Info) Description 2004 Historical Note [facility] [employer] System Devyn Vásquez MD [address] [place] [address] [phone] Social History Tobacco Use Types Packs/Day Years [...] CARRILLO - [facility] [address] [facility] [address] [place] [phone] Brenda Clay MD [address] [facility] [address] [place] [address] 04/15/2026 10:00 AM EDT Office Visit LEATHA Primary [facility] at [facility] + [facility] [address] [facility] [address] [place] [address] Sena Dominguez PA [address] [facility] [place] [address] documented as of this encounter Visit Diagnoses Not on filedocumented in this encounter Care Teams Buddhist Monk Relationship Specialty Start Date End Date Meme Steel MD [address] [place] [address] 105 [place] [address] PCP - General Pediatrics 06/05/18 04/25/22 No Pcp, Pcp PCP - General 06/08/22 07/19/22 Guadalupe Mcbride MD PCP - General Family Medicine 07/20/22 11/01/23 Sena Dominguez PA [address] [place] [address] [place] [address] PCP - BRADY Physician Operational Review Sergeant 11/02/23 Levy Barry MD [address] [place] [address] [place] [address] PCP - General Family Medicine 12/20/23 documented as of this encounter
--- OUTSIDE RECORDS SUMMARY | 2025-07-26 15:21 | XMS_ITS | Encounter Summary ---
Author Organization [facility] work ([facility]) Address [address] [place] [address] Care Team Providers Care A/C Tech Name Role Phone Meme Steel MD Primary Care Provider [phone] Pcp, Pcp Primary Care Provider Unavailabl Guadalupe Bardales MD Primary Care Provider [phone] Sena Dominguez Unavailable [phone] Levy Barry MD Primary Care Provider Unavailab le Source Comments The information that you have received may contain highly confidential and/or federally protected health information. This information has been disclosed to you from records protected by [facility]. The law prohibits you [...] information in error, please contact the sender immediately.[facility] ([facility]) Encounter Details Date Type Department Care Team (Late st Contact Info) Description 03/11/2007 Historical Note [facility] [employer] System Devyn Vásquez MD [address] [place] [address] [phone] Social History Tobacco Use Types Packs/Day Years [...] AM EST Office Visit LEATHA CARRILLO - [facility] at [facility] [address] [facility] [address] [place] [phone] Brenda Clay MD [address] [facility] [address] [place] [address] 04/15/2026 10:00 AM EDT Office Visit [facility]HA [facility] at [facility] + [facility] [address] [facility] [address] [place] [address] Sena Dominguez PA [address] [facility] [place] [address] documented as of this encounter Visit Diagnoses Not on filedocumented in this encounter Care Teams A/C Tech Relationship Specialty Start Date End Date Meme Steel MD [address] [place] [address] 105 [place] [address] PCP - General Pediatrics 06/05/18 04/25/22 No Pcp, Pcp PCP - General 06/08/22 07/19/22 Guadalupe Mcbride MD PCP - General Family Medicine 07/20/22 11/01/23 Sena Dominguez PA [address] [place] [address] [place] [address] PCP - BRADY Physician Strawhat Sizer 11/02/23 Levy Barry MD [address] [place] [address] [place] [address] PCP - General Family Medicine 12/20/23 documented as of this encounter
--- OUTSIDE RECORDS SUMMARY | 2025-07-26 15:21 | XMS_ITS | Encounter Summary ---
Author Organization [facility] work ([facility]) Address [address] [place] [address] Care Team Providers Care Set Up Machinist Name Role Phone Meme Steel MD Primary Care Provider [phone] Pcp, Pcp Primary Care Provider Unavailabl Guadalupe Bardales MD Primary Care Provider [phone] Sena Dominguez Unavailable [phone] Levy Barry MD Primary Care Provider Unavailab le Source Comments The information that you have received may contain highly confidential and/or federally protected health information. This information has been disclosed to you from records protected by [facility]. The law prohibits you [...] information in error, please contact the sender immediately.[facility] ([facility]) Encounter Details Date Type Department Care Team (Late st Contact Info) Description 2004 Historical Note [facility] [employer] System Devyn Vásquez MD [address] [place] [address] [phone] Social History Tobacco Use Types Packs/Day Years [...] AM EST Office Visit LEATHA CARRILLO - [facility] at [facility] [address] [facility] [address] [place] [phone] Brenda Clay MD [address] [facility] [address] [place] [address] 04/15/2026 10:00 AM EDT Office Visit [facility]HA [facility] at [facility] + [facility] [address] [facility] [address] [place] [address] Sena Dominguez PA [address] [facility] [place] [address] documented as of this encounter Visit Diagnoses Not on filedocumented in this encounter Care Teams Set Up Machinist Relationship Specialty Start Date End Date Meme Steel MD [address] [place] [address] 105 [place] [address] PCP - General Pediatrics 06/05/18 04/25/22 No Pcp, Pcp PCP - General 06/08/22 07/19/22 Guadalupe Mcbride MD PCP - General Family Medicine 07/20/22 11/01/23 Sena Dominguez PA [address] [place] [address] [place] [address] PCP - BRADY Physician Animator 11/02/23 Levy Barry MD [address] [place] [address] [place] [address] PCP - General Family Medicine 12/20/23 documented as of this encounter
--- OUTSIDE RECORDS SUMMARY | 2025-07-26 15:21 | XMS_ITS | Encounter Summary ---
Author Organization [facility] work ([facility]) Address [address] [place] [address] Care Team Providers Care Direct Support Staff Member Name Role Phone Meme Steel MD Primary Care Provider [phone] Pcp, Pcp Primary Care Provider Unavailabl Guadalupe Bardales MD Primary Care Provider [phone] Sena Dominguez Unavailable [phone] Levy Barry MD Primary Care Provider Unavailab le Source Comments The information that you have received may contain highly confidential and/or federally protected health information. This information has been disclosed to you from records protected by [facility]. The law prohibits you from [...] information in error, please contact the sender immediately.[facility] ([facility]) Encounter Details Date Type Department Care Team (Late st Contact Info) Description 2004 Historical Note [facility] [employer] System Devyn Vásquez MD [address] [place] [address] [phone] Social History Tobacco Use Types Packs/Day Years [...] CARRILLO - [facility] at [facility] [address] [facility] [address] [place] [phone] Brenda Clay MD [address] [facility] [address] [place] [address] 04/15/2026 10:00 AM EDT Office Visit LEATHA [facility] at [facility] + [facility] [address] [facility] [address] [place] [address] Sena Dominguez PA [address] [facility] [place] [address] documented as of this encounter Visit Diagnoses Not on filedocumented in this encounter Care Teams Direct Support Staff Member Relationship Specialty Start Date End Date Meme Steel MD [address] [place] [address] 105 [place] [address] PCP - General Pediatrics 06/05/18 04/25/22 No Pcp, Pcp PCP - General 06/08/22 07/19/22 Guadalupe Mcbride MD PCP - General Family Medicine 07/20/22 11/01/23 Sena Dominguez PA [address] [place] [address] [place] [address] PCP - BRADY Physician Eggs Inspector 11/02/23 Levy Barry MD [address] [place] [address] [place] [address] PCP - General Family Medicine 12/20/23 documented as of this encounter
--- OUTSIDE RECORDS SUMMARY | 2025-07-26 15:22 | XMS_ITS | Encounter Summary ---
Author Organization [facility] work ([facility]) Address [address] [place] [address] Care Team Providers Care Branch Associate Name Role Phone Meme Steel MD Primary Care Provider [phone] Pcp, Pcp Primary Care Provider Unavailabl Guadalupe Bardales MD Primary Care Provider [phone] Sena Dominguez Unavailable [phone] Levy Barry MD Primary Care Provider Unavailab le Source Comments The information that you have received may contain highly confidential and/or federally protected health information. This information has been disclosed to you from records protected by [facility]. The law prohibits you [...] information in error, please contact the sender immediately.[facility] ([facility]) Encounter Details Date Type Department Care Team (Late st Contact Info) Description 02/09/2006 Historical Note [facility] [employer] System Devyn Vásquez MD [address] [place] [address] [phone] Social History Tobacco Use Types Packs/Day Years [...] EST Office Visit LEATHA [facility]RILLO - [facility] [address] [facility] [address] [place] [phone] Brenda Clay MD [address] [facility] [address] [place] [address] 04/15/2026 10:00 AM EDT Office Visit LEATHA [facility] at [facility] + [facility] [address] [facility] [address] [place] [address] Sena Dominguez PA [address] [facility] [place] [address] documented as of this encounter Visit Diagnoses Not on filedocumented in this encounter Care Teams Branch Associate Relationship Specialty Start Date End Date Meme Steel MD [address] [place] [address] 105 [place] [address] PCP - General Pediatrics 06/05/18 04/25/22 No Pcp, Pcp PCP - General 06/08/22 07/19/22 Guadalupe Mcbride MD PCP - General Family Medicine 07/20/22 11/01/23 Sena Dominguez PA [address] [place] [address] [place] [address] PCP - BRADY Physician Assistant Boiler Operator 11/02/23 Levy Barry MD [address] [place] [address] [place] [address] PCP - General Family Medicine 12/20/23 documented as of this encounter
--- OUTSIDE RECORDS SUMMARY | 2025-07-26 15:22 | XMS_ITS | Encounter Summary ---
Author Organization [facility] work ([facility]) Address [address] [place] [address] Care Team Providers Care Fish Bin Tender Name Role Phone Meme Steel MD Primary Care Provider [phone] Pcp, Pcp Primary Care Provider Unavailabl Guadalupe Bardales MD Primary Care Provider [phone] Sena Dominguez Unavailable [phone] Levy Barry MD Primary Care Provider Unavailab le Source Comments The information that you have received may contain highly confidential and/or federally protected health information. This information has been disclosed to you from records protected by [facility]. The law prohibits you [...] information in error, please contact the sender immediately.[facility] ([facility]) Encounter Details Date Type Department Care Team (Late st Contact Info) Description 02/08/2006 Historical Note [facility] [employer] System Devyn Vásquez MD [address] [place] [address] [phone] Social History Tobacco Use Types Packs/Day Years [...] AM EST Office Visit LEATHA CARRILLO - [facility] at [facility] [address] [facility] [address] [place] [phone] Brenda Clay MD [address] [facility] [address] [place] [address] 04/15/2026 10:00 AM EDT Office Visit LEATHA [facility] at [facility] + [facility] [address] [facility] [address] [place] [address] Sena Dominguez PA [address] [facility] [place] [address] documented as of this encounter Visit Diagnoses Not on filedocumented in this encounter Care Teams Fish Bin Tender Relationship Specialty Start Date End Date Meme Steel MD [address] [place] [address] 105 [place] [address] PCP - General Pediatrics 06/05/18 04/25/22 No Pcp, Pcp PCP - General 06/08/22 07/19/22 Guadalupe Mcbride MD PCP - General Family Medicine 07/20/22 11/01/23 Sena Dominguez PA [address] [place] [address] [place] [address] PCP - BRADY Physician Mercerizing Range Feeder 11/02/23 Levy Barry MD [address] [place] [address] [place] [address] PCP - General Family Medicine 12/20/23 documented as of this encounter
--- OUTSIDE RECORDS SUMMARY | 2025-07-26 15:22 | XMS_ITS | Encounter Summary ---
Author Organization [facility] work ([facility]) Address [address] [place] [address] Care Team Providers Care Voice Intercept Technician Name Role Phone Meme Steel MD Primary Care Provider [phone] Pcp, Pcp Primary Care Provider Unavailabl Guadalupe Bardales MD Primary Care Provider [phone] Sena Dominguez Unavailable [phone] Levy Barry MD Primary Care Provider Unavailab le Source Comments The information that you have received may contain highly confidential and/or federally protected health information. This information has been disclosed to you from records protected by [facility]. The law prohibits you from making [...] information in error, please contact the sender immediately.[facility] ([facility]) Encounter Details Date Type Department Care Team (Late st Contact Info) Description 01/13/2006 Historical Note [facility] [employer] System Devyn Vásquez MD [address] [place] [phone] Social History Tobacco Use Types Packs/Day Years [...] AM EST Office Visit LEATHA CARRILLO - [facility] [address] [facility] [address] [place] [phone] Brenda Clay MD [address] [facility] [address] [place] [address] 04/15/2026 10:00 AM EDT Office Visit LEATHA Primary [facility] at [facility] + [facility] [address] [facility] [address] [place] [address] Sena Dominguez PA [address] [facility] [place] [address] documented as of this encounter Visit Diagnoses Not on filedocumented in this encounter Care Teams Voice Intercept Technician Relationship Specialty Start Date End Date Meme Steel MD [address] [place] [address] 105 [place] [address] PCP - General Pediatrics 06/05/18 04/25/22 No Pcp, Pcp PCP - General 06/08/22 07/19/22 Guadalupe Mcbride MD PCP - General Family Medicine 07/20/22 11/01/23 Sena Dominguez PA [address] [place] [address] [place] [address] PCP - BRADY Physician Print Binding And Finishing Worker 11/02/23 Levy Barry MD [address] [place] [address] [place] [address] PCP - General Family Medicine 12/20/23 documented as of this encounter
--- OUTSIDE RECORDS SUMMARY | 2025-07-26 15:22 | XMS_ITS | Encounter Summary ---
Author Organization [facility] work ([facility]) Address [address] [place] [address] Care Team Providers Care Accounts Receivable Associate Name Role Phone Meme Steel MD Primary Care Provider [phone] Pcp, Pcp Primary Care Provider Unavailabl Guadalupe Bardales MD Primary Care Provider [phone] Sena Dominguez Unavailable [phone] Levy Barry MD Primary Care Provider Unavailab le Source Comments The information that you have received may contain highly confidential and/or federally protected health information. This information has been disclosed to you from records protected by [facility]. The law prohibits you from [...] information in error, please contact the sender immediately.[facility] ([facility]) Encounter Details Date Type Department Care Team (Late st Contact Info) Description 06/19/2007 Historical Note [facility] [employer] System Devyn Vásquez MD [address] [place] [address] [phone] Social History Tobacco Use Types Packs/Day Years [...] AM EST Office Visit LEATHA CARRILLO - [facility] at [facility] [address] [facility] [address] [place] [phone] Brenda Clay MD [address] [facility] [address] [place] [address] 04/15/2026 10:00 AM EDT Office Visit LEATHA [facility] at [facility] + [facility] [address] [facility] [address] [place] [address] Sena Dominguez PA [address] [facility] [place] [address] documented as of this encounter Visit Diagnoses Not on filedocumented in this encounter Care Teams Accounts Receivable Associate Relationship Specialty Start Date End Date Meme Steel MD [address] [place] [address] 105 [place] [address] PCP - General Pediatrics 06/05/18 04/25/22 No Pcp, Pcp PCP - General 06/08/22 07/19/22 Guadalupe Mcbride MD PCP - General Family Medicine 07/20/22 11/01/23 Sena Dominguez PA [address] [place] [address] [place] [address] PCP - BRADY Physician Revising Clerk 11/02/23 Levy Barry MD [address] [place] [address] [place] [address] PCP - General Family Medicine 12/20/23 documented as of this encounter
--- OUTSIDE RECORDS SUMMARY | 2025-07-26 15:22 | XMS_ITS | Encounter Summary ---
Author Organization [facility] work ([facility]) Address [address] [place] [address] Care Team Providers Care Tanker Driver Name Role Phone Meme Steel MD Primary Care Provider [phone] Pcp, Pcp Primary Care Provider Unavailabl Guadalupe Bardales MD Primary Care Provider [phone] Sena Dominguez Unavailable [phone] Levy Barry MD Primary Care Provider Unavailab le Source Comments The information that you have received may contain highly confidential and/or federally protected health information. This information has been disclosed to you from records protected by [facility]. The law prohibits you [...] information in error, please contact the sender immediately.[facility] ([facility]) Encounter Details Date Type Department Care Team (Late st Contact Info) Description 2004 Historical Note [facility] [employer] System Devyn Vásquez MD [address] [place] [address] [phone] Social History Tobacco Use Types Packs/Day Years [...] AM EST Office Visit LEATHA CARRILLO - [facility] [address] [facility] [address] [place] [phone] Brenda Clay MD [address] [facility] [address] [place] [address] 04/15/2026 10:00 AM EDT Office Visit LEATHA Primary [facility] at [facility] + [facility] [address] [facility] [address] [place] [address] Sena Dominguez PA [address] [facility] [place] [address] documented as of this encounter Visit Diagnoses Not on filedocumented in this encounter Care Teams Tanker Driver Relationship Specialty Start Date End Date Meme Steel MD [address] [place] [address] 105 [place] [address] PCP - General Pediatrics 06/05/18 04/25/22 No Pcp, Pcp PCP - General 06/08/22 07/19/22 Guadalupe Mcbride MD PCP - General Family Medicine 07/20/22 11/01/23 Sena Dominguez PA [address] [place] [address] [place] [address] PCP - BRADY Physician Esl Professor 11/02/23 Levy Barry MD [address] [place] [address] [place] [address] PCP - General Family Medicine 12/20/23 documented as of this encounter
--- OUTSIDE RECORDS SUMMARY | 2025-07-26 15:22 | XMS_ITS | Encounter Summary ---
Author Organization [facility] work ([facility]) Address [address] [place] [address] Care Team Providers Care Gate Tender Name Role Phone Meme Steel MD Primary Care Provider [phone] Pcp, Pcp Primary Care Provider Unavailabl Guadalupe Bardales MD Primary Care Provider [phone] Sena Dominguez Unavailable [phone] Levy Barry MD Primary Care Provider Unavailab le Source Comments The information that you have received may contain highly confidential and/or federally protected health information. This information has been disclosed to you from records protected by [facility]. The law prohibits you from [...] contact the sender immediately.[facility] ([facility]) Encounter Details Date Type Department Care Team (Late st Contact Info) Description 01/13/2006 Historical Note [facility] [employer] System Devyn Vásquez MD [address] [place] [address] [phone] Social History Tobacco Use Types Packs/Day Years [...] AM EST Office Visit LEATHA CARRILLO - [facility] [address] [facility] [address] [place] [phone] Brenda Clay MD [address] [facility] [address] [place] [address] 04/15/2026 10:00 AM EDT Office Visit LEATHA [facility] at [facility] + [facility] [address] [facility] [address] [place] [address] Sena Dominguez PA [address] [facility] [place] [address] documented as of this encounter Visit Diagnoses Not on filedocumented in this encounter Care Teams Gate Tender Relationship Specialty Start Date End Date Meme Steel MD [address] [place] [address] 105 [place] [address] PCP - General Pediatrics 06/05/18 04/25/22 No Pcp, Pcp PCP - General 06/08/22 07/19/22 Guadalupe Mcbride MD PCP - General Family Medicine 07/20/22 11/01/23 Sena Dominguez PA [address] [place] [address] [place] [address] PCP - BRADY Physician [employer] Peace 11/02/23 Levy Barry MD [address] [place] [address] [place] [address] PCP - General Family Medicine 12/20/23 documented as of this encounter
--- OUTSIDE RECORDS SUMMARY | 2025-07-26 15:22 | XMS_ITS | Encounter Summary ---
Author Organization [facility] work ([facility]) Address [address] [place] [address] Care Team Providers Care Yard Jockey Name Role Phone Meme Steel MD Primary Care Provider [phone] Pcp, Pcp Primary Care Provider Unavailabl Guadalupe Bardales MD Primary Care Provider [phone] Sena Dominguez Unavailable [phone] Levy Barry MD Primary Care Provider Unavailab le Source Comments The information that you have received may contain highly confidential and/or federally protected health information. This information has been disclosed to you from records protected by [employer] [facility]. The law prohibits you from making [...] information in error, please contact the sender immediately.[facility] ([facility]) Encounter Details Date Type Department Care Team (Late st Contact Info) Description 01/24/2006 Historical Note SVMG Admetric System Devyn Vásquez MD [address] [place] [address] [phone] Social History Tobacco Use Types Packs/Day Years [...] AM EST Office Visit LEATHA CARRILLO - [facility] [address] [facility] [address] [place] [phone] Brenda Clay MD [address] [facility] [place] [address] [place] [address] 04/15/2026 10:00 AM EDT Office Visit [facility]HA [facility] at [facility] + [facility] [address] [facility] [address] [place] [address] Sena Dominguez PA [address] [facility] [place] [address] documented as of this encounter Visit Diagnoses Not on filedocumented in this encounter Care Teams Yard Jockey Relationship Specialty Start Date End Date Meme Steel MD [address] [place] [address] [place] [address] PCP - General Pediatrics 06/05/18 04/25/22 No Pcp, Pcp PCP - General 06/08/22 07/19/22 Guadalupe Mcbride MD PCP - General Family Medicine 07/20/22 11/01/23 Sena Dominguez PA [address] [place] [address] [place] [address] PCP - BRADY Physician Respiratory Therapy Technician 11/02/23 Levy Barry MD [address] [place] [address] [place] [address] PCP - General Family Medicine 12/20/23 documented as of this encounter
--- OUTSIDE RECORDS SUMMARY | 2025-07-26 15:22 | XMS_ITS | Encounter Summary ---
Author Organization [facility] work ([facility]) Address [address] [place] [address] Care Team Providers Care Senior Ui Ux Developer Name Role Phone Meme Steel MD Primary Care Provider [phone] Pcp, Pcp Primary Care Provider Unavailabl Guadalupe Bardales MD Primary Care Provider [phone] Sena Dominguez Unavailable [phone] Levy Barry MD Primary Care Provider Unavailab le Source Comments The information that you have received may contain highly confidential and/or federally protected health information. This information has been disclosed to you from records protected by [facility]. The law prohibits you from making any [...] information in error, please contact the sender immediately.[facility] ([facility]) Encounter Details Date Type Department Care Team (Late st Contact Info) Description 09/10/2012 Historical Note SVMG Oneloudr Productions System Devyn Vásquez MD [address] [place] [address] [phone] Social History Tobacco Use Types Packs/Day Years [...] AM EST Office Visit LEATHA CARRILLO - [facility] at [facility] [address] [facility] [address] [place] [phone] Brenda Clay MD [address] [facility] [place] [address] [place] [address] 04/15/2026 10:00 AM EDT Office Visit [facility]HA [facility] at [facility] + [facility] [place] [address] [facility] [address] [place] [address] Sena Dominguez PA [address] [facility] [place] [address] documented as of this encounter Visit Diagnoses Not on filedocumented in this encounter Care Teams Senior Ui Ux Developer Relationship Specialty Start Date End Date Meme Steel MD [address] [place] [address] 105 [place] [address] PCP - General Pediatrics 06/05/18 04/25/22 No Pcp, Pcp PCP - General 06/08/22 07/19/22 Guadalupe Mcbride MD PCP - General Family Medicine 07/20/22 11/01/23 Sena Dominguez PA [address] [place] [address] [place] [address] PCP - BRADY Physician Title Curative Specialist 11/02/23 Levy Barry MD [address] [place] [address] [place] [address] PCP - General Family Medicine 12/20/23 documented as of this encounter
--- OUTSIDE RECORDS SUMMARY | 2025-07-26 15:22 | XMS_ITS | Encounter Summary ---
Author Organization [facility] work ([facility]) Address [address] [place] [address] Care Team Providers Care Prospecting Driller Helper Name Role Phone Meme Steel MD Primary Care Provider [phone] Pcp, Pcp Primary Care Provider Unavailabl Guadalupe Bardales MD Primary Care Provider [phone] Sena Dominguez Unavailable [phone] Levy Barry MD Primary Care Provider Unavailab le Source Comments The information that you have received may contain highly confidential and/or federally protected health information. This information has been disclosed to you from records protected by [facility]. The law prohibits you from making [...] the sender immediately.[facility] ([facility]) Encounter Details Date Type Department Care Team (Late st Contact Info) Description 02/08/2006 Historical Note SVMG MessageGears System Devyn Vásquez MD [address] [place] [address] [phone] Social History Tobacco Use Types Packs/Day Years [...] AM EST Office Visit LEATHA CARRILLO - [facility] at [facility] [address] [facility] [address] [place] [phone] Brenda Clay MD [address] [facility] [place] [address] [place] [address] 04/15/2026 10:00 AM EDT Office Visit LEATHA [facility] at [facility] + [facility] [address] [facility] [address] [place] [address] Sena Dominguez PA [address] [facility] [place] [address] documented as of this encounter Visit Diagnoses Not on filedocumented in this encounter Care Teams Prospecting Driller Helper Relationship Specialty Start Date End Date Meme Steel MD [address] [place] [address] 105 [place] [address] PCP - General Pediatrics 06/05/18 04/25/22 No Pcp, Pcp PCP - General 06/08/22 07/19/22 Guadalupe Mcbride MD PCP - General Family Medicine 07/20/22 11/01/23 Sena Dominguez PA [address] [place] [address] [place] [address] PCP - BRADY Physician Incident Response Specialist 11/02/23 Levy Barry MD [address] [place] [address] [place] [address] PCP - General Family Medicine 12/20/23 documented as of this encounter
--- OUTSIDE RECORDS SUMMARY | 2025-07-26 15:22 | XMS_ITS | Encounter Summary ---
Author Organization [facility] work ([facility]) Address [address] [place] [address] Care Team Providers Care Trolley Worker Name Role Phone Meme Steel MD Primary Care Provider No Pcp, Pcp Primary Care Provider Unavailabl Guadalupe Bardales MD Primary Care Provider [phone] Sena Dominguez Unavailable [phone] Levy Barry MD Primary Care Provider Unavailab le Source Comments The information that you have received may contain highly confidential and/or federally protected health information. This information has been disclosed to you from records protected by [facility]. The law prohibits you from [...] in error, please contact the sender immediately.[facility] ([facility]) Encounter Details Date Type Department Care Team (Late st Contact Info) Description 09/10/2012 Historical Note SVMG Cloudy.fr System Devyn Vásquez MD [address] [place] [address] [phone] Social History Tobacco Use Types Packs/Day Years [...] CARRILLO - [facility] [address] [facility] [address] [place] [phone] Brenad Clay MD [address] [facility] [place] [address] [place] [address] 04/15/2026 10:00 AM EDT Office Visit LEATHA [facility] at [facility] + [facility] [address] [facility] [address] [place] [address] Sena Dominguez PA [address] [facility] [place] [address] documented as of this encounter Visit Diagnoses Not on filedocumented in this encounter Care Teams Trolley Worker Relationship Specialty Start Date End Date Meme Steel MD [address] [place] [address] 105 [place] [address] PCP - General Pediatrics 06/05/18 04/25/22 No Pcp, Pcp PCP - General 06/08/22 07/19/22 Guadalupe Mcbride MD PCP - General Family Medicine 07/20/22 11/01/23 Sena Dominguez PA [address] [place] [address] [place] [address] PCP - BRADY Physician Lithopone Charger 11/02/23 Levy Barry MD [address] [place] [address] [place] [address] PCP - General Family Medicine 12/20/23 documented as of this encounter
--- OUTSIDE RECORDS SUMMARY | 2025-07-26 15:22 | XMS_ITS | Encounter Summary ---
Author Organization [facility] work ([facility]) Address [address] [place] [address] Care Team Providers Care Fish Pitcher Name Role Phone Meme Steel MD Primary Care Provider [phone] Pcp, Pcp Primary Care Provider Unavailabl Guadalupe Bardales MD Primary Care Provider [phone] Sena Dominguez Unavailable [phone] Levy Barry MD Primary Care Provider Unavailab le Source Comments The information that you have received may contain highly confidential and/or federally protected health information. This information has been disclosed to you from records protected by [facility]. The law prohibits you from [...] information in error, please contact the sender immediately.[facility] ([facility]) Encounter Details Date Type Department Care Team (Late st Contact Info) Description 02/08/2006 Historical Note SVMG Corrigo System Devyn Vásquez MD [address] [place] [address] [phone] Social History Tobacco Use Types Packs/Day Years [...] AM EST Office Visit LEATHA CARRILLO - [facility] [address] [facility] [address] [place] [phone] Brenda Clay MD [address] [facility] [place] [address] [place] [address] 04/15/2026 10:00 AM EDT Office Visit LEATHA [facility] at [facility] + [facility] [address] [facility] [address] [place] [address] Sena Dominguez PA [address] [facility] [place] [address] documented as of this encounter Visit Diagnoses Not on filedocumented in this encounter Care Teams Fish Pitcher Relationship Specialty Start Date End Date Meme Steel MD [address] [place] [address] 105 [place] [address] PCP - General Pediatrics 06/05/18 04/25/22 No Pcp, Pcp PCP - General 06/08/22 07/19/22 Guadalupe Mcbride MD PCP - General Family Medicine 07/20/22 11/01/23 Sena Dominguez PA [address] [place] [address] [place] [address] PCP - BRADY Physician Department Manager 11/02/23 Levy Barry MD [address] [place] [address] [place] [address] PCP - General Family Medicine 12/20/23 documented as of this encounter
--- OUTSIDE RECORDS SUMMARY | 2025-07-26 15:22 | XMS_ITS | Encounter Summary ---
Author Organization [facility] work ([facility]) Address [address] [facility] [facility] [address] [place] [address] Care Team Providers Care Amusement Park Entertainer Name Role Phone Meme Steel MD Primary Care Provider [phone] Pcp, Pcp Primary Care Provider Unavailabl Guadalupe Bardales MD Primary Care Provider [phone] Sena Dominguez Unavailable [phone] Levy Barry MD Primary Care Provider Unavailab le Source Comments The information that you have received may contain highly confidential and/or federally protected health information. This information has been disclosed to you from records protected by [facility]. The law prohibits you [...] sender immediately.[facility] ([facility]) Encounter Details Date Type Department Care Team (Late st Contact Info) Description 09/10/2012 Historical Note SVMG mySupermarket System Devyn Vásquez MD [address] [place] [address] [phone] Social History Tobacco Use Types Packs/Day Years [...] Visit LEATHA CARRILLO - [facility] [address] [facility] [address] [place] [phone] Brenda Clay MD [address] [facility] [place] [address] [place] [address] 04/15/2026 10:00 AM EDT Office Visit LEATHA [facility] at [facility] + [facility] [address] [facility] [address] [place] [address] Sena Dominguez PA [address] [facility] [place] [address] documented as of this encounter Visit Diagnoses Not on filedocumented in this encounter Care Teams Amusement Park Entertainer Relationship Specialty Start Date End Date Meme Steel MD [address] [place] [address] 105 [place] [address] PCP - General Pediatrics 06/05/18 04/25/22 No Pcp, Pcp PCP - General 06/08/22 07/19/22 Guadalupe Mcbride MD PCP - General Family Medicine 07/20/22 11/01/23 Sena Dominguez PA [address] [place] [address] [place] [address] PCP - BRADY Physician Carbonation Tester 11/02/23 Levy Barry MD [address] [place] [address] [place] [address] PCP - General Family Medicine 12/20/23 documented as of this encounter
--- OUTSIDE RECORDS SUMMARY | 2025-07-26 15:22 | XMS_ITS | Encounter Summary ---
Author Organization [facility] work ([facility]) Address [address] [place] [address] Care Team Providers Care E Commerce Merchandising Coordinator Name Role Phone Meme Steel MD Primary Care Provider [phone] Pcp, Pcp Primary Care Provider Unavailabl Guadalupe Bardales MD Primary Care Provider [phone] Sena Dominguez Unavailable [phone] Levy Barry MD Primary Care Provider Unavailab le Source Comments The information that you have received may contain highly confidential and/or federally protected health information. This information has been disclosed to you from records protected by [facility]. The law prohibits you [...] information in error, please contact the sender immediately.[facility] ([facility]) Encounter Details Date Type Department Care Team (Late st Contact Info) Description 05/24/2012 Historical Note SVMG Liveset System Devyn Vásquez MD [address] [place] [address] [phone] Social History Tobacco Use Types Packs/Day Years [...] AM EST Office Visit LEATHA CARRILLO - [facility] at [facility] [address] [facility] [address] [place] [phone] Brenda Clay MD [address] [facility] [place] [address] [place] [address] 04/15/2026 10:00 AM EDT Office Visit LEATHA Primary [facility] at [facility] + [facility] [address] [facility] [address] [place] [address] Sena Dominguez PA [address] [facility] [place] [address] documented as of this encounter Visit Diagnoses Not on filedocumented in this encounter Care Teams E Commerce Merchandising Coordinator Relationship Specialty Start Date End Date Meme Steel MD [address] [place] [address] 105 [place] [address] PCP - General Pediatrics 06/05/18 04/25/22 No Pcp, Pcp PCP - General 06/08/22 07/19/22 Guadalupe Mcbride MD PCP - General Family Medicine 07/20/22 11/01/23 Sena Dominguez PA [address] [place] [address] [place] [address] PCP - BRADY Physician Customer Care Assistant 11/02/23 Levy Barry MD [address] [place] [address] [place] [address] PCP - General Family Medicine 12/20/23 documented as of this encounter
--- OUTSIDE RECORDS SUMMARY | 2025-07-26 15:22 | XMS_ITS | Encounter Summary ---
Author Organization [facility] work ([facility]) Address [address] [facility] [address] [facility] [address] [place] [address] Care Team Providers Care Automotive Refinisher Name Role Phone Meme Steel MD Primary Care Provider [phone] Pcp, Pcp Primary Care Provider Unavailabl Guadalupe Bardales MD Primary Care Provider [phone] Sena Dominguez Unavailable [phone] Levy Barry MD Primary Care Provider Unavailab le Source Comments The information that you have received may contain highly confidential and/or federally protected health information. This information has been disclosed to you from records protected by [facility]. The law prohibits you [...] [facility] ([facility]) Encounter Details Date Type Department Care Team (Late st Contact Info) Description 05/21/2012 Historical Note SVMG Uscreen.tv System Devyn Vásquez MD [address] [place] [address] [phone] Social History Tobacco Use Types Packs/Day Years [...] AM EST Office Visit LEATHA CARRILLO - [facility] [address] [facility] [address] [place] [phone] Brenda Clay MD [address] [facility] [place] [address] [place] [phone] 04/15/2026 10:00 AM EDT Office Visit LEATHA [facility] at [facility] + [facility] [address] [facility] [address] [place] [address] Sena Dominguez PA [address] [facility] [place] [address] documented as of this encounter Visit Diagnoses Not on filedocumented in this encounter Care Teams Automotive Refinisher Relationship Specialty Start Date End Date Meme Steel MD [address] [place] [address] 105 [place] [address] PCP - General Pediatrics 06/05/18 04/25/22 No Pcp, Pcp PCP - General 06/08/22 07/19/22 Guadalupe Mcbride MD PCP - General Family Medicine 07/20/22 11/01/23 Sena Dominguez PA [address] [place] [address] [place] [address] PCP - BRADY Physician Stock Receiver 11/02/23 Levy Barry MD [address] [place] [address] [place] [address] PCP - General Family Medicine 12/20/23 documented as of this encounter
--- OUTSIDE RECORDS SUMMARY | 2025-07-26 15:22 | XMS_ITS | Encounter Summary ---
Author Organization [facility] work ([facility]) Address [address] [place] [address] Care Team Providers Care Channel Development Director Name Role Phone Meme Steel MD Primary Care Provider [phone] No Pcp, Pcp Primary Care Provider Unavailabl Guadalupe Bardales MD Primary Care Provider [phone] Sena Dominguez Unavailable [phone] Levy Barry MD Primary Care Provider Unavailab le Source Comments The information that you have received may contain highly confidential and/or federally protected health information. This information has been disclosed to you from records protected by [facility]. The law prohibits you [...] information in error, please contact the sender immediately.[facility] ([facility]) Encounter Details Date Type Department Care Team (Late st Contact Info) Description 05/24/2012 Historical Note SVMG CheckInOn.Me System Devyn Vásquez MD [address] [place] [address] [phone] Social History Tobacco Use Types Packs/Day Years [...] - [facility] at [facility] [address] [facility] [address] [place] [phone] Brenda Clay MD [address] [facility] [place] [address] [place] [address] 04/15/2026 10:00 AM EDT Office Visit LEATHA [facility] at [facility] + [facility] [address] [facility] [address] [place] [address] Sena Dominguez PA [address] [facility] [place] [address] documented as of this encounter Visit Diagnoses Not on filedocumented in this encounter Care Teams Channel Development Director Relationship Specialty Start Date End Date Meme Steel MD [address] [place] [address] 105 [place] [address] PCP - General Pediatrics 06/05/18 04/25/22 No Pcp, Pcp PCP - General 06/08/22 07/19/22 Guadalupe Mcbride MD PCP - General Family Medicine 07/20/22 11/01/23 Sena Dominguez PA [address] [place] [address] [place] [address] PCP - BRADY Physician Towerman 11/02/23 Levy Barry MD [address] [place] [address] [place] [address] PCP - General Family Medicine 12/20/23 documented as of this encounter
--- OUTSIDE RECORDS SUMMARY | 2025-07-26 15:22 | XMS_ITS | Encounter Summary ---
Author Organization [facility] work ([facility]) Address [address] [facility] [address] [place] [address] Care Team Providers Care Wood Lather Name Role Phone Meme Steel MD Primary Care Provider [phone] Pcp, Pcp Primary Care Provider Unavailabl Guadalupe Bardales MD Primary Care Provider [phone] Sena Dominguez Unavailable [phone] Levy Barry MD Primary Care Provider Unavailab le Source Comments The information that you have received may contain highly confidential and/or federally protected health information. This information has been disclosed to you from records protected by [facility]. The law prohibits you from making [...] information in error, please contact the sender immediately.[facility] ([facility]) Encounter Details Date Type Department Care Team (Late st Contact Info) Description 05/22/2012 Historical Note SVMG Prevoty System Devyn Vásquez MD [address] [place] [address] [phone] Social History Tobacco Use Types Packs/Day Years [...] AM EST Office Visit LEATHA CARRILLO - [facility] [address] [facility] [address] [place] [phone] Brenda Clay MD [address] [facility] [place] [address] [place] [address] 04/15/2026 10:00 AM EDT Office Visit LEATHA [facility] at [facility] + [facility] [address] [facility] [address] [place] [address] Sena Dominguez PA [address] [facility] [place] [address] documented as of this encounter Visit Diagnoses Not on filedocumented in this encounter Care Teams Wood Lather Relationship Specialty Start Date End Date Meme Steel MD [address] [place] [address] 105 [place] [address] PCP - General Pediatrics 06/05/18 04/25/22 No Pcp, Pcp PCP - General 06/08/22 07/19/22 Guadalupe Mcbride MD PCP - General Family Medicine 07/20/22 11/01/23 Sena Dominguez PA [address] [place] [address] [place] [address] PCP - BRADY Physician Cushion Installer 11/02/23 Levy Barry MD [address] [place] [address] [place] [address] PCP - General Family Medicine 12/20/23 documented as of this encounter
--- OUTSIDE RECORDS SUMMARY | 2025-07-26 15:22 | XMS_ITS | Encounter Summary ---
Author Organization [facility] work ([facility]) Address [address] [place] [address] Care Team Providers Care Black Top Machine Operator Name Role Phone Meme Steel MD Primary Care Provider [phone] No Pcp, Pcp Primary Care Provider Unavailabl Guadalupe Bardales MD Primary Care Provider [phone] Sena Dominguez Unavailable [phone] Levy Barry MD Primary Care Provider Unavailab le Source Comments The information that you have received may contain highly confidential and/or federally protected health information. This information has been disclosed to you from records protected by [facility]. The law prohibits you from making [...] error, please contact the sender immediately.[facility] ([facility]) Encounter Details Date Type Department Care Team (Late st Contact Info) Description 02/08/2006 Historical Note [facility] [employer] Devyn Vásquez MD [address] [place] [address] [phone] Social History Tobacco Use Types Packs/Day Years [...] AM EST Office Visit LEATHA CARRILLO - [facility] [address] [facility] [address] [place] [phone] Brenda Clay MD [address] [facility] [address] [place] [address] 04/15/2026 10:00 AM EDT Office Visit [facility]HA [facility] at [facility] + [facility] [address] [facility] [address] [place] [address] Sena Dominguez PA [address] [facility] [place] [address] documented as of this encounter Visit Diagnoses Not on filedocumented in this encounter Care Teams Black Top Machine Operator Relationship Specialty Start Date End Date Meme Steel MD [address] [place] [address] [place] [address] PCP - General Pediatrics 06/05/18 04/25/22 No Pcp, Pcp PCP - General 06/08/22 07/19/22 Guadalupe Mcbride MD PCP - General Family Medicine 07/20/22 11/01/23 Sena Dominguez PA [address] [place] [address] [place] [address] PCP - BRADY Physician House Worker General 11/02/23 Levy Barry MD [address] [place] [address] [place] [address] PCP - General Family Medicine 12/20/23 documented as of this encounter
--- OUTSIDE RECORDS SUMMARY | 2025-07-26 15:22 | XMS_ITS | Encounter Summary ---
Author Organization [facility] work ([facility]) Address [address] [place] [address] Care Team Providers Care Grey Percher Name Role Phone Meme Steel MD Primary Care Provider [phone] No Pcp, Pcp Primary Care Provider Unavailabl Guadalupe Bardales MD Primary Care Provider [phone] Sena Dominguez Unavailable [phone] Levy Barry MD Primary Care Provider Unavailab le Source Comments The information that you have received may contain highly confidential and/or federally protected health information. This information has been disclosed to you from records protected by [facility]. The law prohibits you [...] information in error, please contact the sender immediately.[facility] ([facility]) Encounter Details Date Type Department Care Team (Late st Contact Info) Description 2004 Historical Note [facility] [employer] Dveyn Vásquez MD [address] [place] [address] [phone] Social History Tobacco Use Types Packs/Day Years [...] LEATHA CARRILLO - [facility] [address] [facility] [address] [place] [phone] Brenda Clay MD [address] [facility] [address] [place] [address] 04/15/2026 10:00 AM EDT Office Visit [facility]HA [facility] + [facility] [address] [place] [address] Sena Dominguez PA [address] [facility] [place] [address] documented as of this encounter Visit Diagnoses Not on filedocumented in this encounter Care Teams Grey Percher Relationship Specialty Start Date End Date Meme Steel MD [address] [place] [address] 105 [place] [address] PCP - General Pediatrics 06/05/18 04/25/22 No Pcp, Pcp PCP - General 06/08/22 07/19/22 Guadalupe Mcbride MD PCP - General Family Medicine 07/20/22 11/01/23 Sena Dominguez PA [address] [place] [address] [place] [address] PCP - BRADY Physician Real Estate Acquisition Analyst 11/02/23 Levy Barry MD [address] [place] [address] [place] [address] PCP - General Family Medicine 12/20/23 documented as of this encounter
--- OUTSIDE RECORDS SUMMARY | 2025-07-26 15:22 | XMS_ITS | Encounter Summary ---
Author Organization [facility] work ([facility]) Address [address] [place] [address] Care Team Providers Care Lawn Mower Sharpener Name Role Phone Meme Steel MD Primary Care Provider [phone] Pcp, Pcp Primary Care Provider Unavailabl Guadalupe Bardales MD Primary Care Provider [phone] Sena Dominguez Unavailable [phone] Levy Barry MD Primary Care Provider Unavailab le Source Comments The information that you have received may contain highly confidential and/or federally protected health information. This information has been disclosed to you from records protected by [facility]. The law prohibits you from [...] information in error, please contact the sender immediately.[facility] ([facility]) Encounter Details Date Type Department Care Team (Late st Contact Info) Description 06/14/2007 Historical Note [facility] [employer] Devyn Vásquez MD [address] [place] [address] [phone] Social History Tobacco Use Types Packs/Day Years [...] EST Office Visit LEATHA CARRILLO - [facility] [address] [facility] [address] [place] [phone] Brenda Clay MD [address] [facility] [address] [place] [address] 04/15/2026 10:00 AM EDT Office Visit LEATHA [facility] at [facility] + [facility] [address] [facility] [address] [place] [address] Sena Dominguez PA [address] [facility] [place] [address] documented as of this encounter Visit Diagnoses Not on filedocumented in this encounter Care Teams Lawn Mower Sharpener Relationship Specialty Start Date End Date Meme Steel MD [address] [place] [address] 105 [place] [address] PCP - General Pediatrics 06/05/18 04/25/22 No Pcp, Pcp PCP - General 06/08/22 07/19/22 Guadalupe Mcbride MD PCP - General Family Medicine 07/20/22 11/01/23 Sena Dominguez PA [address] [place] [address] [place] [address] PCP - BRADY Physician Oxyhydrogen Welder 11/02/23 Levy Barry MD [address] [place] [address] [place] [address] PCP - General Family Medicine 12/20/23 documented as of this encounter
--- OUTSIDE RECORDS SUMMARY | 2025-07-26 15:22 | XMS_ITS | Encounter Summary ---
Author Organization [facility] work ([facility]) Address [address] [place] [address] Care Team Providers Care Improvement Analyst Name Role Phone Meme Steel MD Primary Care Provider [phone] No Pcp, Pcp Primary Care Provider Unavailabl Guadalupe Bardales MD Primary Care Provider [phone] Sena Dominguez Unavailable [phone] Levy Barry MD Primary Care Provider Unavailab le Source Comments The information that you have received may contain highly confidential and/or federally protected health information. This information has been disclosed to you from records protected by [facility]. The law prohibits you from [...] information in error, please contact the sender immediately.[facility] ([facility]) Encounter Details Date Type Department Care Team (Late st Contact Info) Description 05/24/2012 Historical Note [facility] [employer] System Devyn Vásquez MD [address] [place] [address] [phone] Social History Tobacco Use Types Packs/Day Years [...] AM EST Office Visit LEATHA CARRILLO - [facility] [address] [facility] [address] [place] [phone] Brenda Clay MD [address] [facility] [address] [place] [address] 04/15/2026 10:00 AM EDT Office Visit LEATHA [facility] at [facility] + [facility] [address] [facility] [address] [place] [address] Sena Dominguez PA [address] [facility] [place] [address] documented as of this encounter Visit Diagnoses Not on filedocumented in this encounter Care Teams Improvement Analyst Relationship Specialty Start Date End Date Meme Steel MD [address] [place] [address] 105 [place] [address] PCP - General Pediatrics 06/05/18 04/25/22 No Pcp, Pcp PCP - General 06/08/22 07/19/22 Guadalupe Mcbride MD PCP - General Family Medicine 07/20/22 11/01/23 Sena Dominguez PA [address] [place] [address] [place] [address] PCP - BRADY Physician Water Meter Installer 11/02/23 Levy Barry MD [address] [place] [address] [place] [address] PCP - General Family Medicine 12/20/23 documented as of this encounter
--- OUTSIDE RECORDS SUMMARY | 2025-07-26 15:22 | XMS_ITS | Encounter Summary ---
Author Organization [facility] work ([facility]) Address [address] [place] [address] Care Team Providers Care Order Puller Name Role Phone Meme Steel MD Primary Care Provider [phone] No Pcp, Pcp Primary Care Provider Unavailabl Guadalupe Bardales MD Primary Care Provider [phone] Sena Dominguez Unavailable [phone] Levy Barry MD Primary Care Provider Unavailab le Source Comments The information that you have received may contain highly confidential and/or federally protected health information. This information has been disclosed to you from records protected by [facility]. The law prohibits you from making any [...] information in error, please contact the sender immediately.[facility] ([facility]) Encounter Details Date Type Department Care Team (Late st Contact Info) Description 2004 Historical Note [facility] [employer] System Devyn Vásquez MD [address] [place] [address] [phone] Social History Tobacco Use Types Packs/Day Years [...] LEATHA CARRILLO - [facility] [address] [facility] [address] [place] [phone] Brenda Clay MD [address] [facility] [address] [place] [address] 04/15/2026 10:00 AM EDT Office Visit LEATHA [facility] + [facility] [address] [facility] [address] [place] [address] Sena Dominguez PA [address] [facility] [place] [address] documented as of this encounter Visit Diagnoses Not on filedocumented in this encounter Care Teams Order Puller Relationship Specialty Start Date End Date Meme Steel MD [address] [place] [address] 105 [place] [address] PCP - General Pediatrics 06/05/18 04/25/22 No Pcp, Pcp PCP - General 06/08/22 07/19/22 Guadalupe Mcbride MD PCP - General Family Medicine 07/20/22 11/01/23 Sena Dominguez PA [address] [place] [address] [place] [address] PCP - BRADY Physician Lithographic Proofer 11/02/23 Levy Barry MD [address] [place] [address] [place] [address] PCP - General Family Medicine 12/20/23 documented as of this encounter
--- OUTSIDE RECORDS SUMMARY | 2025-07-26 15:22 | XMS_ITS | Encounter Summary ---
Author Organization [facility] work ([facility]) Address [address] [place] [address] Care Team Providers Care Digital Sales Representative Name Role Phone Meme Steel MD Primary Care Provider [phone] No Pcp, Pcp Primary Care Provider Unavailabl Guadalupe Bardales MD Primary Care Provider [phone] Sena Dominguez Unavailable [phone] Levy Barry MD Primary Care Provider Unavailab le Source Comments The information that you have received may contain highly confidential and/or federally protected health information. This information has been disclosed to you from records protected by [facility]. The law prohibits you from making [...] information in error, please contact the sender immediately.[facility] ([facility]) Encounter Details Date Type Department Care Team (Late st Contact Info) Description 2004 Historical Note [facility] [employer] System Devyn Vásquez MD [address] [place] [address] [phone] Social History Tobacco Use Types Packs/Day Years [...] EST Office Visit LEATHA CARRILLO - [facility] [address] [facility] [address] [place] [phone] Brenda Clay MD [address] [facility] [address] [place] [address] 04/15/2026 10:00 AM EDT Office Visit LEATHA [facility] at [facility] + [facility] [address] [facility] [address] [place] [address] Sena Dominguez PA [address] [facility] [place] [address] documented as of this encounter Visit Diagnoses Not on filedocumented in this encounter Care Teams Digital Sales Representative Relationship Specialty Start Date End Date Meme Steel MD [address] [place] [address] 105 [place] [address] PCP - General Pediatrics 06/05/18 04/25/22 No Pcp, Pcp PCP - General 06/08/22 07/19/22 Guadalupe Mcbride MD PCP - General Family Medicine 07/20/22 11/01/23 Sena Dominguez PA [address] [place] [address] [place] [address] PCP - BRADY Physician Senior Quality Methods Specialist 11/02/23 Levy Barry MD [address] [place] [address] [place] [address] PCP - General Family Medicine 12/20/23 documented as of this encounter
--- OUTSIDE RECORDS SUMMARY | 2025-07-26 15:22 | XMS_ITS | Encounter Summary ---
Author Organization [facility] work ([facility]) Address [address] [facility] [address] [place] [address] Care Team Providers Care Office Helper Clerical Name Role Phone Meme Steel MD Primary Care Provider [phone] No Pcp, Pcp Primary Care Provider Unavailabl Guadalupe Bardales MD Primary Care Provider [phone] Sena Dominguez Unavailable [phone] Levy Barry MD Primary Care Provider Unavailab le Source Comments The information that you have received may contain highly confidential and/or federally protected health information. This information has been disclosed to you from records protected by [facility]. The law prohibits you from making any [...] information in error, please contact the sender immediately.[facility] ([facility]) Encounter Details Date Type Department Care Team (Late st Contact Info) Description 01/23/2006 Historical Note [facility] [employer] System Devyn Vásquez MD [address] [place] [address] [phone] Social History Tobacco Use Types Packs/Day Years [...] EST Office Visit LEATHA CARRILLO - [facility] [address] [facility] [address] [place] [phone] Brenda Clay MD [address] [facility] [address] [place] [address] 04/15/2026 10:00 AM EDT Office Visit LEATHA Primary [facility] at [facility] + [facility] [address] [facility] [address] [place] [address] Sena Dominguez PA [address] [facility] [place] [address] documented as of this encounter Visit Diagnoses Not on filedocumented in this encounter Care Teams Office Helper Clerical Relationship Specialty Start Date End Date Meme Steel MD [address] [place] [address] 105 [place] [address] PCP - General Pediatrics 06/05/18 04/25/22 No Pcp, Pcp PCP - General 06/08/22 07/19/22 Guadalupe Mcbride MD PCP - General Family Medicine 07/20/22 11/01/23 Sena Dominguez PA [address] [place] [address] [place] [address] PCP - BRADY Physician Television Cameraman 11/02/23 Levy Barry MD [address] [place] [address] [place] [address] PCP - General Family Medicine 12/20/23 documented as of this encounter
--- OUTSIDE RECORDS SUMMARY | 2025-07-26 15:22 | XMS_ITS | Encounter Summary ---
Author Organization [facility] work ([facility]) Address [address] [place] [address] Care Team Providers Care Sales Enablement Analyst Name Role Phone Meme Steel MD Primary Care Provider [phone] Pcp, Pcp Primary Care Provider Unavailabl Guadalupe Bardales MD Primary Care Provider [phone] Sena Dominguez Unavailable [phone] Levy Barry MD Primary Care Provider Unavailab le Source Comments The information that you have received may contain highly confidential and/or federally protected health information. This information has been disclosed to you from records protected by [facility]. The law prohibits you from making [...] information in error, please contact the sender immediately.[facility] ([facility]) Encounter Details Date Type Department Care Team (Late st Contact Info) Description 06/14/2007 Historical Note [facility] [employer] System Devyn Vásquez MD [address] [place] [address] [phone] Social History Tobacco Use Types Packs/Day Years [...] - Located [facility] [address] [facility] [address] [place] [phone] Brenda Clay MD [address] [facility] [address] [place] [address] 04/15/2026 10:00 AM EDT Office Visit LEATHA Primary [facility] at [facility] + [facility] [address] [facility] [address] [place] [address] Sena Dominguez PA [address] [facility] [place] [address] documented as of this encounter Visit Diagnoses Not on filedocumented in this encounter Care Teams Sales Enablement Analyst Relationship Specialty Start Date End Date Meme Steel MD [address] [place] [address] 105 [place] [address] PCP - General Pediatrics 06/05/18 04/25/22 No Pcp, Pcp PCP - General 06/08/22 07/19/22 Guadalupe Mcbride MD PCP - General Family Medicine 07/20/22 11/01/23 Sena Dominguez PA [address] [place] [address] [place] [address] PCP - BRADY Physician Roof Bolter Helper 11/02/23 Levy Barry MD [address] [place] [address] [place] [address] PCP - General Family Medicine 12/20/23 documented as of this encounter
--- OUTSIDE RECORDS SUMMARY | 2025-07-26 15:22 | XMS_ITS | Encounter Summary ---
Author Organization [facility] work ([facility]) Address [address] [facility] [address] [place] [address] Care Team Providers Care Plastics Nurse Name Role Phone Meme Steel MD Primary Care Provider [phone] Pcp, Pcp Primary Care Provider Unavailabl Guadalupe Bardales MD Primary Care Provider [phone] Sena Dominguez Unavailable [phone] Levy Barry MD Primary Care Provider Unavailab le Source Comments The information that you have received may contain highly confidential and/or federally protected health information. This information has been disclosed to you from records protected by [facility]. The law prohibits [...] information in error, please contact the sender immediately.[facility] ([facility]) Encounter Details Date Type Department Care Team (Late st Contact Info) Description 01/23/2006 Historical Note [facility] [employer] System Devyn Vásquez MD [address] [place] [address] [phone] Social History Tobacco Use Types Packs/Day Years [...] Visit LEATHA CARRILLO - [facility] [address] [facility] [address] [place] [phone] Brenda Clay MD [address] [facility] [address] [place] [address] 04/15/2026 10:00 AM EDT Office Visit LEATHA [facility] at [facility] + [facility] [address] [facility] [address] [place] [address] Sena Dominguez PA [address] [facility] [place] [address] documented as of this encounter Visit Diagnoses Not on filedocumented in this encounter Care Teams Plastics Nurse Relationship Specialty Start Date End Date Meme Steel MD [address] [place] [address] 105 [place] [address] PCP - General Pediatrics 06/05/18 04/25/22 No Pcp, Pcp PCP - General 06/08/22 07/19/22 Guadalupe Mcbride MD PCP - General Family Medicine 07/20/22 11/01/23 Sena Dominguez PA [address] [place] [address] [place] [address] PCP - BRADY Physician Maintainer Plant 11/02/23 Levy Barry MD [address] [place] [address] [place] [address] PCP - General Family Medicine 12/20/23 documented as of this encounter
--- OUTSIDE RECORDS SUMMARY | 2025-07-26 15:22 | XMS_ITS | Encounter Summary ---
Author Organization [facility] work ([facility]) Address [address] [place] [address] Care Team Providers Care Online Merchandising Manager Name Role Phone Meme Steel MD Primary Care Provider [phone] Pcp, Pcp Primary Care Provider Unavailabl Guadalupe Bardales MD Primary Care Provider [phone] Sena Dominguez Unavailable Levy Barry MD Primary Care Provider Unavailab le Source Comments The information that you have received may contain highly confidential and/or federally protected health information. This information has been disclosed to you from records protected by [facility]. The law prohibits you from making [...] information in error, please contact the sender immediately.[facility] ([facility]) Encounter Details Date Type Department Care Team (Late st Contact Info) Description 05/08/2012 Historical Note [facility] [employer] System Devyn Vásquez MD [address] [place] [address] [phone] Social History Tobacco Use Types Packs/Day Years [...] CARRILLO - [facility] [address] [facility] [address] [place] [phone] Brenda Clay MD [address] [facility] [address] [place] [address] 04/15/2026 10:00 AM EDT Office Visit LEATHA [facility] at [facility] + [facility] [address] [facility] [address] [place] [address] Sena Dominguez PA [address] [facility] [place] [address] documented as of this encounter Visit Diagnoses Not on filedocumented in this encounter Care Teams Online Merchandising Manager Relationship Specialty Start Date End Date Meme Steel MD [address] [place] [address] 105 [place] [address] PCP - General Pediatrics 06/05/18 04/25/22 No Pcp, Pcp PCP - General 06/08/22 07/19/22 Guadalupe Mcbride MD PCP - General Family Medicine 07/20/22 11/01/23 Sena Dominguez PA [address] [place] [address] [place] [address] PCP - BRADY Physician Power Plant Mechanic 11/02/23 Levy Barry MD [address] [place] [address] [place] [address] PCP - General Family Medicine 12/20/23 documented as of this encounter
--- OUTSIDE RECORDS SUMMARY | 2025-07-26 15:22 | XMS_ITS | Encounter Summary ---
Author Organization [facility] work ([facility]) Address [address] [place] [address] Care Team Providers Care Filter Press Supervisor Name Role Phone Meme Steel MD Primary Care Provider [phone] Pcp, Pcp Primary Care Provider Unavailabl Guadalupe Bardales MD Primary Care Provider [phone] Sena Dominguez Unavailable [phone] Levy Barry MD Primary Care Provider Unavailab le Source Comments The information that you have received may contain highly confidential and/or federally protected health information. This information has been disclosed to you from records protected by [facility]. The law prohibits you from making [...] please contact the sender immediately.[facility] ([facility]) Encounter Details Date Type Department Care Team (Late st Contact Info) Description 01/26/2006 Historical Note [facility] Sneaky Games System Devyn Vásquez MD [address] [place] [address] [phone] Social History Tobacco Use Types Packs/Day Years [...] AM EST Office Visit LEATHA CARRILLO - [facility] [address] [facility] [address] [place] [phone] Brenda Clay MD [address] [facility] [address] [place] [address] 04/15/2026 10:00 AM EDT Office Visit [facility] + [facility] [address] [facility] [address] [place] [address] Sena Dominguez PA [address] [facility] [place] [address] documented as of this encounter Visit Diagnoses Not on filedocumented in this encounter Care Teams Filter Press Supervisor Relationship Specialty Start Date End Date Meme Steel MD [address] [place] [address] [place] [address] PCP - General Pediatrics 06/05/18 04/25/22 No Pcp, Pcp PCP - General 06/08/22 07/19/22 Guadalupe Mcbride MD PCP - General Family Medicine 07/20/22 11/01/23 Sena Dominguez PA [address] [place] [address] [place] [address] PCP - BRADY Physician Tie In Hand 11/02/23 Levy Barry MD [address] [place] [address] [place] [address] PCP - General Family Medicine 12/20/23 documented as of this encounter
--- OUTSIDE RECORDS SUMMARY | 2025-07-26 15:22 | XMS_ITS | Encounter Summary ---
Author Organization [facility] work ([facility]) Address [address] [place] [address] Care Team Providers Care Religion Professor Name Role Phone Meme Steel MD Primary Care Provider [phone] Pcp, Pcp Primary Care Provider Unavailabl Guadalupe Bardales MD Primary Care Provider [phone] Sena Dominguez Unavailable [phone] Levy Barry MD Primary Care Provider Unavailab le Source Comments The information that you have received may contain highly confidential and/or federally protected health information. This information has been disclosed to you from records protected by [facility]. The law prohibits you from [...] in error, please contact the sender immediately.[facility] ([facility]) Encounter Details Date Type Department Care Team (Late st Contact Info) Description 05/24/2012 Historical Note [facility] Tomveyi Bidamon System Devyn Vásquez MD [address] [place] [address] [phone] Social History Tobacco Use Types Packs/Day Years [...] LEATHA CARRILLO - [facility] [address] [facility] [address] [place] [phone] Brenda Clay MD [address] [facility] [address] [place] [address] 04/15/2026 10:00 AM EDT Office Visit [facility] at [facility] + [facility] [address] [facility] [address] [place] [address] Sena Dominguez PA [address] [facility] [place] [address] documented as of this encounter Visit Diagnoses Not on filedocumented in this encounter Care Teams Religion Professor Relationship Specialty Start Date End Date Meme Steel MD [address] [place] [address] 105 [place] [address] PCP - General Pediatrics 06/05/18 04/25/22 No Pcp, Pcp PCP - General 06/08/22 07/19/22 Guadalupe Mcbride MD PCP - General Family Medicine 07/20/22 11/01/23 Sena Dominguez PA [address] [place] [address] [place] [address] PCP - BRADY Physician Education Counselor 11/02/23 Levy Barry MD [address] [place] [address] [place] [address] PCP - General Family Medicine 12/20/23 documented as of this encounter
--- OUTSIDE RECORDS SUMMARY | 2025-07-26 15:22 | XMS_ITS | Encounter Summary ---
Author Organization [facility] work ([facility]) Address [address] [place] [address] Care Team Providers Care Inspector Raw Quartz Name Role Phone Meme Steel MD Primary Care Provider [phone] Pcp, Pcp Primary Care Provider Unavailabl Guadalupe Bardales MD Primary Care Provider [phone] Sena Dominguez Unavailable [phone] Levy Barry MD Primary Care Provider Unavailab le Source Comments The information that you have received may contain highly confidential and/or federally protected health information. This information has been disclosed to you from records protected by [facility]. The law prohibits you from making any [...] error, please contact the sender immediately.[facility] ([facility]) Encounter Details Date Type Department Care Team (Late st Contact Info) Description 05/24/2012 Historical Note [facility] hetras System Devyn Vásquez MD [address] [place] [address] [phone] Social History Tobacco Use Types Packs/Day Years [...] LEATHA CARRILLO - [facility] [address] [facility] [address] [place] [phone] Brenda Clay MD [address] [facility] [address] [place] [address] 04/15/2026 10:00 AM EDT Office Visit [facility]HA [facility] at [facility] + [facility] [address] [facility] [address] [place] [address] Sena Dominguez PA [address] [facility] [place] [address] documented as of this encounter Visit Diagnoses Not on filedocumented in this encounter Care Teams Inspector Raw Quartz Relationship Specialty Start Date End Date Meme Steel MD [address] [place] [address] 105 [place] [address] PCP - General Pediatrics 06/05/18 04/25/22 No Pcp, Pcp PCP - General 06/08/22 07/19/22 Guadalupe Mcbride MD PCP - General Family Medicine 07/20/22 11/01/23 Sena Dominguez PA [address] [place] [address] [place] [address] PCP - BRADY Physician Billiard Table Mechanic 11/02/23 Levy Barry MD [address] [place] [address] [place] [address] PCP - General Family Medicine 12/20/23 documented as of this encounter
--- OUTSIDE RECORDS SUMMARY | 2025-07-26 15:22 | XMS_ITS | Encounter Summary ---
Author Organization [facility] work ([facility]) Address [address] [place] [address] Care Team Providers Care University Demonstrator Name Role Phone Meme Steel MD Primary Care Provider [phone] Pcp, Pcp Primary Care Provider Unavailabl Guadalupe Bardales MD Primary Care Provider [phone] Sena Dominguez Unavailable [phone] Levy Barry MD Primary Care Provider Unavailab le Source Comments The information that you have received may contain highly confidential and/or federally protected health information. This information has been disclosed to you from records protected by [facility]. The law prohibits you from [...] contact the sender immediately.[facility] ([facility]) Encounter Details Date Type Department Care Team (Late st Contact Info) Description 05/24/2012 Historical Note [facility] [employer] [facility] Devyn Vásquez MD [address] [place] [address] [phone] Social History Tobacco Use Types Packs/Day Years [...] EST Office Visit LEATHA CARRILLO - [facility] at [facility] [address] [facility] [address] [place] [phone] Brenda Clay MD [address] [facility] [address] [place] [address] 04/15/2026 10:00 AM EDT Office Visit [facility]HA [facility] at [facility] + [facility] [address] [facility] [address] [place] [address] Sena Dominguez PA [address] [facility] [place] [address] documented as of this encounter Visit Diagnoses Not on filedocumented in this encounter Care Teams University Demonstrator Relationship Specialty Start Date End Date Meme Steel MD [address] [place] [address] 105 [place] [address] PCP - General Pediatrics 06/05/18 04/25/22 No Pcp, Pcp PCP - General 06/08/22 07/19/22 Guadalupe Mcbride MD PCP - General Family Medicine 07/20/22 11/01/23 Sena Dominguez PA [address] [place] [address] [place] [address] PCP - BRADY Physician Poundmaster 11/02/23 Levy Barry MD [address] [place] [address] [place] [address] PCP - General Family Medicine 12/20/23 documented as of this encounter
--- OUTSIDE RECORDS SUMMARY | 2025-07-26 15:22 | XMS_ITS | Encounter Summary ---
Author Organization [facility] work ([facility]) Address [address] [place] [address] Care Team Providers Care Hay Stacker Name Role Phone Meme Steel MD Primary Care Provider [phone] Pcp, Pcp Primary Care Provider Unavailabl Guadalupe Bardales MD Primary Care Provider [phone] Sena Dominguez Unavailable [phone] Levy Barry MD Primary Care Provider Unavailab le Source Comments The information that you have received may contain highly confidential and/or federally protected health information. This information has been disclosed to you from records protected by [facility]. The law prohibits you [...] please contact the sender immediately.[facility] ([facility]) Encounter Details Date Type Department Care Team (Late st Contact Info) Description 05/21/2012 Historical Note [facility] Habeas System Devyn Vásquez MD [address] [place] [address] [phone] Social History Tobacco Use Types Packs/Day Years [...] EST Office Visit LEATHA CARRILLO - [facility] [address] [facility] [address] [place] [phone] Brenda Clay MD [address] [facility] [address] [place] [address] 04/15/2026 10:00 AM EDT Office Visit [facility]HA [facility] at [facility] + [facility] [address] [facility] [address] [place] [address] Sena Dominguez PA [address] [facility] [place] [address] documented as of this encounter Visit Diagnoses Not on filedocumented in this encounter Care Teams Hay Stacker Relationship Specialty Start Date End Date Meme Steel MD [address] [place] [address] 105 [place] [address] PCP - General Pediatrics 06/05/18 04/25/22 No Pcp, Pcp PCP - General 06/08/22 07/19/22 Guadalupe Mcbride MD PCP - General Family Medicine 07/20/22 11/01/23 Sena Dominguez PA [address] [place] [address] [place] [address] PCP - BRADY Physician Anthropology Lecturer 11/02/23 Levy Barry MD [address] [place] [address] [place] [address] PCP - General Family Medicine 12/20/23 documented as of this encounter
--- OUTSIDE RECORDS SUMMARY | 2025-07-26 15:22 | XMS_ITS | Encounter Summary ---
Author Organization [facility] work ([facility]) Address [address] [place] [address] Care Team Providers Care Mold Making Supervisor Name Role Phone Meme Steel MD Primary Care Provider [phone] Pcp, Pcp Primary Care Provider Unavailabl Guadalupe Bardales MD Primary Care Provider Sena Dominguez Unavailable [phone] Levy Barry MD Primary Care Provider Unavailab le Source Comments The information that you have received may contain highly confidential and/or federally protected health information. This information has been disclosed to you from records protected by [facility]. The law prohibits you [...] information in error, please contact the sender immediately.[facility] ([facility]) Encounter Details Date Type Department Care Team (Late st Contact Info) Description 02/08/2006 Historical Note [facility] Stand In System Devyn Vásquez MD [address] [place] [address] [phone] Social History Tobacco Use Types Packs/Day Years [...] LEATHA CARRILLO - [facility] [address] [facility] [address] [place] [phone] Brenda Clay MD [address] [facility] [address] [place] [address] 04/15/2026 10:00 AM EDT Office Visit [facility]HA [facility] at [facility] + [facility] [address] [facility] [address] [place] [address] Sena Dominguez PA [address] [facility] [place] [address] documented as of this encounter Visit Diagnoses Not on filedocumented in this encounter Care Teams Mold Making Supervisor Relationship Specialty Start Date End Date Meme Steel MD [address] [place] [address] 105 [place] [address] PCP - General Pediatrics 06/05/18 04/25/22 No Pcp, Pcp PCP - General 06/08/22 07/19/22 Guadalupe Mcbride MD PCP - General Family Medicine 07/20/22 11/01/23 Sena Dominguez PA [address] [place] [address] [place] [address] PCP - BRADY Physician Gutter Mouth Cutter 11/02/23 Levy Barry MD [address] [place] [address] [place] [address] PCP - General Family Medicine 12/20/23 documented as of this encounter
--- OUTSIDE RECORDS SUMMARY | 2025-07-26 15:22 | XMS_ITS | Encounter Summary ---
Author Organization [facility] work ([facility]) Address [address] [place] [address] Care Team Providers Care Traveling Passenger Agent Name Role Phone Meme Steel MD Primary Care Provider [phone] Pcp, Pcp Primary Care Provider Unavailabl Guadalupe Bardales MD Primary Care Provider Sena Dominguez Unavailable [phone] Levy Barry MD Primary Care Provider Unavailab le Source Comments The information that you have received may contain highly confidential and/or federally protected health information. This information has been disclosed to you from records protected by [facility]. The law prohibits you from making [...] error, please contact the sender immediately.[facility] ([facility]) Encounter Details Date Type Department Care Team (Late st Contact Info) Description 05/22/2012 Historical Note [facility] 3TIER System Devyn Vásquez MD [address] [place] [address] [phone] Social History Tobacco Use Types Packs/Day Years [...] - [facility] [address] [facility] [address] [place] [phone] Brenda Clay MD [address] [facility] [address] [place] [address] 04/15/2026 10:00 AM EDT Office Visit LE[facility]HA [facility] at [facility] + [facility] [address] [facility] [address] [place] [address] Sena Dominguez PA [address] [facility] [place] [address] documented as of this encounter Visit Diagnoses Not on filedocumented in this encounter Care Teams Traveling Passenger Agent Relationship Specialty Start Date End Date Meme Steel MD [address] [place] [address] 105 [place] [address] PCP - General Pediatrics 06/05/18 04/25/22 No Pcp, Pcp PCP - General 06/08/22 07/19/22 Guadalupe Mcbride MD PCP - General Family Medicine 07/20/22 11/01/23 Sena Dominguez PA [address] [place] [address] [place] [address] PCP - BRADY Physician Hide Spreader 11/02/23 Levy Barry MD [address] [place] [address] [place] [address] PCP - General Family Medicine 12/20/23 documented as of this encounter
--- OUTSIDE RECORDS SUMMARY | 2025-07-26 15:22 | XMS_ITS | Encounter Summary ---
Author Organization [facility] work ([facility]) Address [address] [place] [address] Care Team Providers Care Sand And Gravel Plant Operator Name Role Phone Meme Steel MD Primary Care Provider [phone] Pcp, Pcp Primary Care Provider Unavailabl Guadalupe Bardales MD Primary Care Provider [phone] Sena Dominguez Unavailable [phone] Levy Barry MD Primary Care Provider Unavailab le Source Comments The information that you have received may contain highly confidential and/or federally protected health information. This information has been disclosed to you from records protected by [facility]. The law prohibits you from making [...] information in error, please contact the sender immediately.[facility] ([facility]) Encounter Details Date Type Department Care Team (Late st Contact Info) Description 06/14/2007 Historical Note [facility] Equidate System Devyn Vásquez MD [address] [place] [address] [phone] Social History Tobacco Use Types Packs/Day Years [...] - [facility] at [facility] [address] [facility] [address] [place] [phone] Brenda Clay MD [address] [facility] [address] [place] [address] 04/15/2026 10:00 AM EDT Office Visit LEATHA Primary [facility] at [facility] + [facility] [address] [facility] [address] [place] [address] Sena Dominguez PA [address] [facility] [place] [address] documented as of this encounter Visit Diagnoses Not on filedocumented in this encounter Care Teams Sand And Gravel Plant Operator Relationship Specialty Start Date End Date Meme Steel MD [address] [place] [address] 105 [place] [address] PCP - General Pediatrics 06/05/18 04/25/22 No Pcp, Pcp PCP - General 06/08/22 07/19/22 Guadaluep Mcbride MD PCP - General Family Medicine 07/20/22 11/01/23 Sena Dominguez PA [address] [place] [address] [place] [address] PCP - BRADY Physician Java Grails Developer 11/02/23 Levy Barry MD [address] [place] [address] [place] [address] PCP - General Family Medicine 12/20/23 documented as of this encounter
--- OUTSIDE RECORDS SUMMARY | 2025-07-26 15:22 | XMS_ITS | Encounter Summary ---
Author Organization [facility] work ([facility]) Address [address] [facility] [address] [facility] [address] [facility] [address] [place] [address] Care Team Providers Care Director Of Research Name Role Phone Meme Steel MD Primary Care Provider [phone] No Pcp, Pcp Primary Care Provider Unavailabl Guadalupe Bardales MD Primary Care Provider [phone] Sena Dominguez Unavailable [phone] Levy Barry MD Primary Care Provider Unavailab le Source Comments The information that you have received may contain highly confidential and/or federally protected health information. This information has been disclosed to you from records protected by [facility]. The law prohibits you [...] in error, please contact the sender immediately.[facility] ([facility]) Encounter Details Date Type Department Care Team (Late st Contact Info) Description 01/26/2006 Historical Note [facility] ITM Solutions System Devyn Vásquez MD [address] [place] [address] [phone] Social History Tobacco Use Types Packs/Day Years [...] AM EST Office Visit LEATHA CARRILLO - [facility] [address] [facility] [address] [place] [phone] Brenda Clay MD [address] [facility] [address] [place] [address] 04/15/2026 10:00 AM EDT Office Visit LEATHA [facility] at [facility] + [facility] [address] [facility] [address] [place] [address] Sena Dominguez PA [address] [facility] [place] [address] documented as of this encounter Visit Diagnoses Not on filedocumented in this encounter Care Teams Director Of Research Relationship Specialty Start Date End Date Meme Steel MD [address] [place] [address] 105 [place] [address] PCP - General Pediatrics 06/05/18 04/25/22 No Pcp, Pcp PCP - General 06/08/22 07/19/22 Guadalupe Mcbride MD PCP - General Family Medicine 07/20/22 11/01/23 Sena Dominguez PA [address] [place] [address] [place] [address] PCP - BRADY Physician Shells Inspector 11/02/23 Levy Barry MD [address] [place] [address] [place] [address] PCP - General Family Medicine 12/20/23 documented as of this encounter
--- OUTSIDE RECORDS SUMMARY | 2025-07-26 15:22 | XMS_ITS | Encounter Summary ---
Author Organization [facility] work ([facility]) Address [address] [facility] [address] [place] [address] Care Team Providers Care Drilling Machine Runner Name Role Phone Meme Steel MD Primary Care Provider [phone] Pcp, Pcp Primary Care Provider Unavailabl Guadalupe Bardales MD Primary Care Provider [phone] Sena Dominguez Unavailable [phone] Levy Barry MD Primary Care Provider Unavailab le Source Comments The information that you have received may contain highly confidential and/or federally protected health information. This information has been disclosed to you from records protected by [facility]. The law prohibits you from making [...] information in error, please contact the sender immediately.[facility] ([facility]) Encounter Details Date Type Department Care Team (Late st Contact Info) Description 09/16/2012 Historical Note [facility] CineFlow System Devyn Vásquez MD [address] [place] [address] [phone] Social History Tobacco Use Types Packs/Day Years [...] 10/10/2025 10:00 AM EST Office Visit LEATHA CARIRLLO - [facility] [address] [facility] [address] [place] [phone] Brenda Clay MD [address] [facility] [address] [place] [address] 04/15/2026 10:00 AM EDT Office Visit LE[facility]HA [facility] at [facility] + [facility] [address] [facility] [address] [place] [address] Sena Dominguez PA [address] [facility] [place] [address] documented as of this encounter Visit Diagnoses Not on filedocumented in this encounter Care Teams Drilling Machine Runner Relationship Specialty Start Date End Date Meme Steel MD [address] [place] [address] 105 [place] [address] PCP - General Pediatrics 06/05/18 04/25/22 No Pcp, Pcp PCP - General 06/08/22 07/19/22 Guadalupe Mcbride MD PCP - General Family Medicine 07/20/22 11/01/23 Sena Dominguez PA [address] [place] [address] [place] [address] PCP - BRADY Physician Sandwich Artist 11/02/23 Levy Barry MD [address] [place] [address] [place] [address] PCP - General Family Medicine 12/20/23 documented as of this encounter
--- OUTSIDE RECORDS SUMMARY | 2025-07-26 15:22 | XMS_ITS | Encounter Summary ---
Author Organization [facility] work ([facility]) Address [address] [place] [address] Care Team Providers Care Configuration Management Advisor Name Role Phone Meme Steel MD Primary Care Provider [phone] Pcp, Pcp Primary Care Provider Unavailabl Guadalupe Bardales MD Primary Care Provider [phone] Sena Dominguez Unavailable [phone] Levy Barry MD Primary Care Provider Unavailab le Source Comments The information that you have received may contain highly confidential and/or federally protected health information. This information has been disclosed to you from records protected by [facility]. The law prohibits you [...] information in error, please contact the sender immediately.[facility] ([facility]) Encounter Details Date Type Department Care Team (Late st Contact Info) Description 09/10/2012 Historical Note [facility] [employer] System Devyn Vásquez MD [address] [place] [address] [phone] Social History Tobacco Use Types Packs/Day Years [...] AM EST Office Visit LEATHA CARRILLO - [facility] at [facility] [address] [place] [phone] Brenda Clay MD [address] [facility] [address] [place] [address] 04/15/2026 10:00 AM EDT Office Visit [facility] [address] [place] [address] Sena Dominguez PA [address] [facility] [address] [facility] [place] [address] documented as of this encounter Visit Diagnoses Not on filedocumented in this encounter Care Teams Configuration Management Advisor Relationship Specialty Start Date End Date Meme Steel MD [address] [place] [address] 105 [place] [address] PCP - General Pediatrics 06/05/18 04/25/22 No Pcp, Pcp PCP - General 06/08/22 07/19/22 Guadalupe Mcbride MD PCP - General Family Medicine 07/20/22 11/01/23 Sena Dominguez PA [address] [place] [address] [place] [address] PCP - BRADY Physician Robotic Machine Tender Production 11/02/23 Levy Barry MD [address] [place] [address] [place] [address] PCP - General Family Medicine 12/20/23 documented as of this encounter
--- OUTSIDE RECORDS SUMMARY | 2025-07-26 15:22 | XMS_ITS | Encounter Summary ---
Author Organization [facility] work ([facility]) Address [address] [place] [address] Care Team Providers Care Custom Shoemaker Name Role Phone Meme Steel MD Primary Care Provider [phone] Pcp, Pcp Primary Care Provider Unavailabl Guadalupe Bardales MD Primary Care Provider [phone] Sena Dominguez Unavailable [phone] Levy Barry MD Primary Care Provider Unavailab le Source Comments The information that you have received may contain highly confidential and/or federally protected health information. This information has been disclosed to you from records protected by [facility]. The law prohibits you from making [...] information in error, please contact the sender immediately.[facility] ([facility]) Encounter Details Date Type Department Care Team (Late st Contact Info) Description 05/24/2012 Historical Note [facility] [employer] System Devyn Vásquez MD [address] [place] [address] [phone] Social History Tobacco Use Types Packs/Day Years [...] AM EST Office Visit LEATHA CARRILLO - [facility] at [facility] [address] [facility] [address] [place] [phone] Brenda Clay MD [address] [facility] [address] [place] [address] 04/15/2026 10:00 AM EDT Office Visit [facility] at [facility] + [facility] [address] [facility] [address] [facility] [address] [place] [address] Sena Dominguez PA [address] [facility] [place] [address] documented as of this encounter Visit Diagnoses Not on filedocumented in this encounter Care Teams Custom Shoemaker Relationship Specialty Start Date End Date Meme Steel MD [address] [place] [address] 105 [place] [address] PCP - General Pediatrics 06/05/18 04/25/22 No Pcp, Pcp PCP - General 06/08/22 07/19/22 Guadalupe Mcbride MD PCP - General Family Medicine 07/20/22 11/01/23 Sena Dominguez PA [address] [place] [address] [place] [address] PCP - BRADY Physician Wash Barrel Leader 11/02/23 Levy Barry MD [address] [place] [address] [place] [address] PCP - General Family Medicine 12/20/23 documented as of this encounter
--- OUTSIDE RECORDS SUMMARY | 2025-07-26 15:22 | XMS_ITS | Encounter Summary ---
Author Organization [facility] work ([facility]) Address [address] [place] [address] Care Team Providers Care Cardiac Cath Technologist Name Role Phone Meme Steel MD Primary Care Provider [phone] Pcp, Pcp Primary Care Provider Unavailabl Guadalupe Bardales MD Primary Care Provider [phone] Sena Dominguez Unavailable [phone] Levy Barry MD Primary Care Provider Unavailab le Source Comments The information that you have received may contain highly confidential and/or federally protected health information. This information has been disclosed to you from records protected by [facility]. The law prohibits you from making [...] information in error, please contact the sender immediately.[facility] ([facility]) Encounter Details Date Type Department Care Team (Late st Contact Info) Description 02/09/2006 Historical Note [facility] [employer] System Devyn Vásquez MD [address] [place] [address] [phone] Social History Tobacco Use Types Packs/Day Years [...] AM EST Office Visit LEATHA CARRILLO - [facility] [address] [facility] [address] [place] [phone] Brenda Clay MD [address] [facility] [address] [place] [address] 04/15/2026 10:00 AM EDT Office Visit [facility]HA [facility] at [facility] + [facility] [address] [place] [address] Sena Dominguez PA [address] [facility] [place] [address] documented as of this encounter Visit Diagnoses Not on filedocumented in this encounter Care Teams Cardiac Cath Technologist Relationship Specialty Start Date End Date Meme Steel MD [address] [place] [address] 105 [place] [address] PCP - General Pediatrics 06/05/18 04/25/22 No Pcp, Pcp PCP - General 06/08/22 07/19/22 Guadalupe Mcbride MD PCP - General Family Medicine 07/20/22 11/01/23 Sena Dominguez PA [address] [place] [address] [place] [address] PCP - BRADY Physician Camera Repairman 11/02/23 Levy Barry MD [address] [place] [address] [place] [address] PCP - General Family Medicine 12/20/23 documented as of this encounter
--- OUTSIDE RECORDS SUMMARY | 2025-07-26 15:22 | XMS_ITS | Encounter Summary ---
Author Organization [facility] work ([facility]) Address [address] [place] [address] Care Team Providers Care Power Screwdriver Operator Name Role Phone Meme Steel MD Primary Care Provider [phone] Pcp, Pcp Primary Care Provider Unavailabl Guadalupe Bardales MD Primary Care Provider [phone] Sena Dominguez Unavailable [phone] Levy Barry MD Primary Care Provider Unavailab le Source Comments The information that you have received may contain highly confidential and/or federally protected health information. This information has been disclosed to you from records protected by [facility]. The law prohibits you from making [...] please contact the sender immediately.[facility] ([facility]) Encounter Details Date Type Department Care Team (Late st Contact Info) Description 05/08/2012 Historical Note [facility] [employer] System Devyn Vásquez MD [address] [place] [address] [phone] Social History Tobacco Use Types Packs/Day Years [...] CARRILLO - [facility] [address] [place] [phone] Brenda Clay MD [address] [facility] [address] [place] [address] 04/15/2026 10:00 AM EDT Office Visit [facility] + [facility] [address] [facility] [address] [facility] [address] [place] [address] Sena Dominguez PA [address] [facility] [place] [address] documented as of this encounter Visit Diagnoses Not on filedocumented in this encounter Care Teams Power Screwdriver Operator Relationship Specialty Start Date End Date Meme Steel MD [address] [place] [address] 105 [place] [address] PCP - General Pediatrics 06/05/18 04/25/22 No Pcp, Pcp PCP - General 06/08/22 07/19/22 Guadalupe Mcbride MD PCP - General Family Medicine 07/20/22 11/01/23 Sena Dominguez PA [address] [place] [address] [place] [address] PCP - BRADY Physician Tire Wrapper 11/02/23 Levy Barry MD [address] [place] [address] [place] [address] PCP - General Family Medicine 12/20/23 documented as of this encounter
--- OUTSIDE RECORDS SUMMARY | 2025-07-26 15:22 | XMS_ITS | Encounter Summary ---
Author Organization [facility] work ([facility]) Address [address] [place] [address] Care Team Providers Care Inspecting Engineer Name Role Phone Meme Steel MD Primary Care Provider [phone] Pcp, Pcp Primary Care Provider Unavailabl Guadalupe Bardales MD Primary Care Provider [phone] Sena Dominguez Unavailable [phone] Levy Barry MD Primary Care Provider Unavailab le Source Comments The information that you have received may contain highly confidential and/or federally protected health information. This information has been disclosed to you from records protected by [employer] [facility]. The law prohibits you [...] information in error, please contact the sender immediately.[facility] ([facility]) Encounter Details Date Type Department Care Team (Late st Contact Info) Description 02/08/2006 Historical Note [facility] [employer] System Devyn Vásquez MD [address] [place] [address] [phone] Social History Tobacco Use Types Packs/Day Years [...] CARRILLO - [facility] [address] [facility] [address] [place] [phone] Brenda Clay MD [address] [facility] [address] [place] [address] 04/15/2026 10:00 AM EDT Office Visit [facility]HA [facility] at [facility] + [facility] [address] [facility] [address] [place] [address] Sena Dominguez PA [address] [facility] [place] [address] documented as of this encounter Visit Diagnoses Not on filedocumented in this encounter Care Teams Inspecting Engineer Relationship Specialty Start Date End Date Meme Steel MD [address] [place] [address] 105 [place] [address] PCP - General Pediatrics 06/05/18 04/25/22 No Pcp, Pcp PCP - General 06/08/22 07/19/22 Guadalupe Mcbride MD PCP - General Family Medicine 07/20/22 11/01/23 Sena Dominguez PA [address] [place] [address] [place] [address] PCP - BRADY Physician Last Turner 11/02/23 Levy Barry MD [address] [place] [address] [place] [address] PCP - General Family Medicine 12/20/23 documented as of this encounter
--- OUTSIDE RECORDS SUMMARY | 2025-07-26 15:22 | XMS_ITS | Encounter Summary ---
Author Organization [facility] work ([facility]) Address [address] [place] [address] Care Team Providers Care Epidemiology Internship Name Role Phone Meme Steel MD Primary Care Provider [phone] Pcp, Pcp Primary Care Provider Unavailabl Guadalupe Bardales MD Primary Care Provider [phone] Sena Dominguez Unavailable [phone] Levy Barry MD Primary Care Provider Unavailab le Source Comments The information that you have received may contain highly confidential and/or federally protected health information. This information has been disclosed to you from records protected by [facility]. The law prohibits you from making [...] in error, please contact the sender immediately.[facility] ([facility]) Encounter Details Date Type Department Care Team (Late st Contact Info) Description 01/24/2006 Historical Note [facility] Hot Potato System Devyn Vásquez MD [address] [place] [address] [phone] Social History Tobacco Use Types Packs/Day Years [...] LEATHA CARRILLO - [facility] [address] [facility] [address] [place] [phone] Brenda Clay MD 23[address] [facility] [address] [place] [address] 04/15/2026 10:00 AM EDT Office Visit [facility]HA [facility] at [facility] + [facility] [address] [facility] [address] [place] [address] Sena Dominguez PA [address] [facility] [place] [address] documented as of this encounter Visit Diagnoses Not on filedocumented in this encounter Care Teams Epidemiology Internship Relationship Specialty Start Date End Date Meme Steel MD [address] [place] [address] 105 [place] [address] PCP - General Pediatrics 06/05/18 04/25/22 No Pcp, Pcp PCP - General 06/08/22 07/19/22 Guadalupe Mcbride MD PCP - General Family Medicine 07/20/22 11/01/23 Sena Dominguez PA [address] [place] [address] [place] [address] PCP - BRADY Physician Analog Circuit Designer 11/02/23 Levy Barry MD [address] [place] [address] [place] [address] PCP - General Family Medicine 12/20/23 documented as of this encounter
--- OUTSIDE RECORDS SUMMARY | 2025-07-26 15:22 | XMS_ITS | Encounter Summary ---
Author Organization [facility] work ([facility]) Address [address] [place] [address] Care Team Providers Care Negative Retoucher Name Role Phone Meme Steel MD Primary Care Provider [phone] Pcp, Pcp Primary Care Provider Unavailabl Guadalupe Bardales MD Primary Care Provider [phone] Sena Dominguez Unavailable [phone] Levy Barry MD Primary Care Provider Unavailab le Source Comments The information that you have received may contain highly confidential and/or federally protected health information. This information has been disclosed to you from records protected by [employer] [facility]. The law prohibits you [...] error, please contact the sender immediately.[facility] ([facility]) Encounter Details Date Type Department Care Team (Late st Contact Info) Description 05/24/2012 Historical Note SVMG Maker's [employer] System Devyn Vásquez MD [address] [place] [address] [phone] Social History Tobacco Use Types Packs/Day Years [...] LEATHA CARRILLO - [facility] [address] [facility] [address] [place] [phone] Brenda Clay MD [address] [facility] [address] [place] [address] 04/15/2026 10:00 AM EDT Office Visit LEATHA [facility] at [facility] + [facility] [address] [facility] [address] [place] [address] Sena Dominguez PA [address] [facility] [place] [address] documented as of this encounter Visit Diagnoses Not on filedocumented in this encounter Care Teams Negative Retoucher Relationship Specialty Start Date End Date Meme Steel MD [address] [place] [address] 105 [place] [address] PCP - General Pediatrics 06/05/18 04/25/22 No Pcp, Pcp PCP - General 06/08/22 07/19/22 Guadalupe Mcbride MD PCP - General Family Medicine 07/20/22 11/01/23 Sena Dominguez PA [address] [place] [address] [place] [address] PCP - BRADY Physician Plaster Caster 11/02/23 Levy Barry MD [address] [place] [address] [place] [address] PCP - General Family Medicine 12/20/23 documented as of this encounter
--- OUTSIDE RECORDS SUMMARY | 2025-07-26 15:22 | XMS_ITS | Encounter Summary ---
Author Organization [facility] work ([facility]) Address [address] [place] [address] Care Team Providers Care Electro Mechanical Technologist Name Role Phone Meme Steel MD Primary Care Provider [phone] Pcp, Pcp Primary Care Provider Unavailabl Guadalupe Bardales MD Primary Care Provider [phone] Sena Dominguez Unavailable [phone] Levy Barry MD Primary Care Provider Unavailab le Source Comments The information that you have received may contain highly confidential and/or federally protected health information. This information has been disclosed to you from records protected by [facility]. The law prohibits you from making [...] the sender immediately.[facility] ([facility]) Encounter Details Date Type Department Care Team (Late st Contact Info) Description 05/22/2012 Historical Note [facility] Telderi System Devyn Vásquez MD [address] [place] [address] [phone] Social History Tobacco Use Types Packs/Day Years [...] CARRILLO - [facility] [address] [facility] [address] [place] [phone] Brenda Clay MD [address] [facility] [address] [place] [address] 04/15/2026 10:00 AM EDT Office Visit LEATHA Primary [facility] at [facility] + [facility] [address] [facility] [address] [place] [address] Sena Dominguez PA [address] [facility] [place] [address] documented as of this encounter Visit Diagnoses Not on filedocumented in this encounter Care Teams Electro Mechanical Technologist Relationship Specialty Start Date End Date Meme Steel MD [address] [place] [address] 105 [place] [address] PCP - General Pediatrics 06/05/18 04/25/22 No Pcp, Pcp PCP - General 06/08/22 07/19/22 Guadalupe Mcbride MD PCP - General Family Medicine 07/20/22 11/01/23 Sena Dominguez PA [address] [place] [address] [place] [address] PCP - BRADY Physician Pharmacology Teacher 11/02/23 Levy Barry MD [address] [place] [address] [place] [address] PCP - General Family Medicine 12/20/23 documented as of this encounter
--- OUTSIDE RECORDS SUMMARY | 2025-07-26 15:22 | XMS_ITS | Encounter Summary ---
Author Organization [facility] work ([facility]) Address [address] [place] [address] Care Team Providers Care Animal Doctor Name Role Phone Meme Steel MD Primary Care Provider [phone] No Pcp, Pcp Primary Care Provider Unavailabl Guadalupe Bardales MD Primary Care Provider [phone] Sena Dominguez Unavailable [phone] Levy Barry MD Primary Care Provider Unavailab le Source Comments The information that you have received may contain highly confidential and/or federally protected health information. This information has been disclosed to you from records protected by [facility]. The law prohibits you from [...] information in error, please contact the sender immediately.[facility] ([facility]) Encounter Details Date Type Department Care Team (Late st Contact Info) Description 02/08/2006 Historical Note SVMG GetNotes System Devyn Vásquez MD [address] [place] [address] [phone] Social History Tobacco Use Types Packs/Day Years [...] AM EST Office Visit LEATHA CARRILLO - [facility] [address] [facility] [address] [place] [phone] Brenda Clay MD [address] [facility] [address] [place] [phone] 04/15/2026 10:00 AM EDT Office Visit LEATHA Primary [facility] at [facility] + [facility] [address] [facility] [address] [place] [address] Sena Dominguez PA [address] [facility] [place] [address] documented as of this encounter Visit Diagnoses Not on filedocumented in this encounter Care Teams Animal Doctor Relationship Specialty Start Date End Date Meme Steel MD [address] [place] [address] 105 [place] [address] PCP - General Pediatrics 06/05/18 04/25/22 No Pcp, Pcp PCP - General 06/08/22 07/19/22 Guadalupe Mcbride MD PCP - General Family Medicine 07/20/22 11/01/23 Sena Dominguez PA [address] [place] [address] [place] [address] PCP - BRADY Physician Mortgage Lender 11/02/23 Levy Barry MD [address] [place] [address] [place] [address] PCP - General Family Medicine 12/20/23 documented as of this encounter
--- OUTSIDE RECORDS SUMMARY | 2025-07-26 15:22 | XMS_ITS | Encounter Summary ---
Author Organization [facility] work ([facility]) Address [address] [place] [address] Care Team Providers Care Air Analysis Technician Name Role Phone Meme Steel MD Primary Care Provider [phone] No Pcp, Pcp Primary Care Provider Unavailabl Guadalupe Bardales MD Primary Care Provider [phone] Sena Dominguez Unavailable [phone] Levy Barry MD Primary Care Provider Unavailab le Source Comments The information that you have received may contain highly confidential and/or federally protected health information. This information has been disclosed to you from records protected by [facility]. The law prohibits you from [...] immediately.[facility] ([facility]) Encounter Details Date Type Department Care Team (Late st Contact Info) Description 01/23/2006 Historical Note SVMG [employer] System Devyn Vásquez MD [address] [place] [address] [phone] Social History Tobacco Use Types Packs/Day Years [...] AM EST Office Visit LEATHA CARRILLO - [facility] [address] [facility] [address] [place] [phone] Brenda Clay MD [address] [facility] [address] [place] [address] 04/15/2026 10:00 AM EDT Office Visit LEATHA [facility] at [facility] + [facility] [address] [facility] [address] [place] [address] Sena Dominguez PA [address] [facility] [place] [address] documented as of this encounter Visit Diagnoses Not on filedocumented in this encounter Care Teams Air Analysis Technician Relationship Specialty Start Date End Date Meme Steel MD [address] [place] [address] 105 [place] [address] PCP - General Pediatrics 06/05/18 04/25/22 No Pcp, Pcp PCP - General 06/08/22 07/19/22 Guadalupe Mcbride MD PCP - General Family Medicine 07/20/22 11/01/23 Sena Dominguez PA [address] [place] [address] [place] [address] PCP - BRADY Physician Field Operations Supervisor 11/02/23 Levy Barry MD [address] [place] [address] [place] [address] PCP - General Family Medicine 12/20/23 documented as of this encounter
--- OUTSIDE RECORDS SUMMARY | 2025-07-26 15:22 | XMS_ITS | Encounter Summary ---
Author Organization [facility] work ([facility]) Address [address] [place] [address] Care Team Providers Care Speed Operator Name Role Phone Meme Steel MD Primary Care Provider [phone] Pcp, Pcp Primary Care Provider Unavailabl Guadalupe Bardales MD Primary Care Provider [phone] Sena Dominguez Unavailable [phone] Levy Barry MD Primary Care Provider Unavailab le Source Comments The information that you have received may contain highly confidential and/or federally protected health information. This information has been disclosed to you from records protected by [facility]. The law prohibits you from [...] information in error, please contact the sender immediately.[facility] ([facility]) Encounter Details Date Type Department Care Team (Late st Contact Info) Description 02/08/2006 Historical Note [facility] [employer] System Devyn Vásquez MD [address] [place] [address] [phone] Social History Tobacco Use Types Packs/Day Years [...] AM EST Office Visit LEATHA CARRILLO - [facility] [address] [place] [phone] Brenda Clay MD [address] [facility] [address] [place] [address] 04/15/2026 10:00 AM EDT Office Visit [facility] + [facility] [address] [facility] [address] [place] [address] Sena Dominguez PA [address] [facility] [place] [address] documented as of this encounter Visit Diagnoses Not on filedocumented in this encounter Care Teams Speed Operator Relationship Specialty Start Date End Date Meme Steel MD [address] [place] [address] 105 [place] [address] PCP - General Pediatrics 06/05/18 04/25/22 No Pcp, Pcp PCP - General 06/08/22 07/19/22 Guadalupe Mcbride MD PCP - General Family Medicine 07/20/22 11/01/23 Sena Dominguez PA [address] [place] [address] [place] [address] PCP - BRADY Physician Automated Weaver 11/02/23 Levy Barry MD [address] [place] [address] [place] [address] PCP - General Family Medicine 12/20/23 documented as of this encounter
--- OUTSIDE RECORDS SUMMARY | 2025-07-26 15:23 | XMS_ITS | Encounter Summary ---
Author Organization [facility] work ([facility]) Address [address] [place] [address] Care Team Providers Care Small Parts Shaper Operator Name Role Phone Meme Steel MD Primary Care Provider No Pcp, Pcp Primary Care Provider Unavailabl Guadalupe Bardales MD Primary Care Provider [phone] Sena Dominguez Unavailable [phone] Levy Barry MD Primary Care Provider Unavailab le Source Comments The information that you have received may contain highly confidential and/or federally protected health information. This information has been disclosed to you from records protected by [facility]. The law prohibits you [...] information in error, please contact the sender immediately.[facility] ([facility]) Encounter Details Date Type Department Care Team (Late st Contact Info) Description 09/21/2010 Historical Note [facility] [employer] System Devyn Vásquez MD [address] [place] [address] [phone] Social History Tobacco Use Types Packs/Day Years [...] CARRILLO - [facility] at [facility] [address] [facility] [address] [place] [phone] Brenda Clay MD [address] [facility] [address] [place] [address] 04/15/2026 10:00 AM EDT Office Visit [facility]HA [facility] at [facility] + [facility] [address] [place] [address] Sena Dominguez PA [address] [facility] [place] [address] documented as of this encounter Visit Diagnoses Not on filedocumented in this encounter Care Teams Small Parts Shaper Operator Relationship Specialty Start Date End Date Meme Steel MD [address] [place] [address] 105 [place] [address] PCP - General Pediatrics 06/05/18 04/25/22 No Pcp, Pcp PCP - General 06/08/22 07/19/22 Guadalupe Mcbride MD PCP - General Family Medicine 07/20/22 11/01/23 Sena Dominguez PA [address] [place] [address] [place] [address] PCP - BRADY Physician Replanting Machine Operator 11/02/23 Levy Barry MD [address] [place] [address] [place] [address] PCP - General Family Medicine 12/20/23 documented as of this encounter
--- OUTSIDE RECORDS SUMMARY | 2025-07-26 15:23 | XMS_ITS | Encounter Summary ---
Author Organization [facility] work ([facility]) Address [address] [place] [address] Care Team Providers Care Production Welding Supervisor Name Role Phone Meme Steel MD Primary Care Provider [phone] Pcp, Pcp Primary Care Provider Unavailabl Guadalupe Bardales MD Primary Care Provider [phone] Sena Dominguez Unavailable [phone] Levy Barry MD Primary Care Provider Unavailab le Source Comments The information that you have received may contain highly confidential and/or federally protected health information. This information has been disclosed to you from records protected by [facility]. The law prohibits you from [...] information in error, please contact the sender immediately.[facility] ([facility]) Encounter Details Date Type Department Care Team (Late st Contact Info) Description 11/25/2010 Historical Note [facility] [employer] System Devyn Vásquez MD [address] [place] [address] [phone] Social History Tobacco Use Types Packs/Day Years [...] AM EST Office Visit LEATHA CARRILLO - [facility] [address] [facility] [address] [place] [phone] Brenda Clay MD [address] [facility] [address] [place] [address] 04/15/2026 10:00 AM EDT Office Visit LEATHA [facility] at [facility] + [facility] [address] [facility] [address] [place] [address] Sena Dominguez PA [address] [facility] [place] [address] documented as of this encounter Visit Diagnoses Not on filedocumented in this encounter Care Teams Production Welding Supervisor Relationship Specialty Start Date End Date Meme Steel MD [address] [place] [address] 105 [place] [address] PCP - General Pediatrics 06/05/18 04/25/22 No Pcp, Pcp PCP - General 06/08/22 07/19/22 Guadalupe Mcbride MD PCP - General Family Medicine 07/20/22 11/01/23 Sena Dominguez PA [address] [place] [address] [place] [address] PCP - BRADY Physician Documentation Engineer 11/02/23 Levy Barry MD [address] [place] [address] [place] [address] PCP - General Family Medicine 12/20/23 documented as of this encounter
--- OUTSIDE RECORDS SUMMARY | 2025-07-26 15:23 | XMS_ITS | Encounter Summary ---
Author Organization [facility] work ([facility]) Address [address] [place] [address] Care Team Providers Care Dragline Operator Helper Name Role Phone Meme Steel MD Primary Care Provider [phone] No Pcp, Pcp Primary Care Provider Unavailabl Guadalupe Bardales MD Primary Care Provider [phone] Sena Dominguez Unavailable [phone] Levy Barry MD Primary Care Provider Unavailab le Source Comments The information that you have received may contain highly confidential and/or federally protected health information. This information has been disclosed to you from records protected by [facility]. The law prohibits you [...] in error, please contact the sender immediately.[facility] ([facility]) Encounter Details Date Type Department Care Team (Late st Contact Info) Description 04/12/2011 Historical Note [facility] [employer] System Devyn Vásquez MD [address] [place] [address] [phone] Social History Tobacco Use Types Packs/Day Years [...] [facility] [address] [facility] [address] [place] [phone] Brenda Clay MD [address] [facility] [address] [place] [address] 04/15/2026 10:00 AM EDT Office Visit [facility]HA [facility] at [facility] + [facility] [address] [place] [address] Sena Dominguez PA [address] [facility] [place] [address] documented as of this encounter Visit Diagnoses Not on filedocumented in this encounter Care Teams Dragline Operator Helper Relationship Specialty Start Date End Date Meme Steel MD [address] [place] [address] 105 [place] [address] PCP - General Pediatrics 06/05/18 04/25/22 No Pcp, Pcp PCP - General 06/08/22 07/19/22 Guadalupe Mcbride MD PCP - General Family Medicine 07/20/22 11/01/23 Sena Dominguez PA [address] [place] [address] [place] [address] PCP - BRADY Physician Tying In Machine Operator 11/02/23 Levy Barry MD [address] [place] [address] [place] [address] PCP - General Family Medicine 12/20/23 documented as of this encounter
--- OUTSIDE RECORDS SUMMARY | 2025-07-26 15:23 | XMS_ITS | Encounter Summary ---
Author Organization [facility] work ([facility]) Address [address] [place] [address] Care Team Providers Care Corporate Treasurer Name Role Phone Meme Steel MD Primary Care Provider [phone] Pcp, Pcp Primary Care Provider Unavailabl Guadalupe Bardales MD Primary Care Provider [phone] Sena Dominguez Unavailable [phone] Levy Barry MD Primary Care Provider Unavailab le Source Comments The information that you have received may contain highly confidential and/or federally protected health information. This information has been disclosed to you from records protected by [facility]. The law prohibits you [...] please contact the sender immediately.[facility] ([facility]) Encounter Details Date Type Department Care Team (Late st Contact Info) Description 11/10/2005 Historical Note [facility] [employer] System Devyn Vásquez MD [address] [place] [address] [phone] Social History Tobacco Use Types Packs/Day Years [...] AM EST Office Visit LEATHA CARRILLO - [facility] [address] [facility] [address] [place] [phone] Brenda Clay MD [address] [facility] [address] [place] [address] 04/15/2026 10:00 AM EDT Office Visit LEATHA [facility] at [facility] + [facility] [address] [place] [address] Sena Dominguez PA [address] [facility] [address] [place] [address] documented as of this encounter Visit Diagnoses Not on filedocumented in this encounter Care Teams Corporate Treasurer Relationship Specialty Start Date End Date Meme Steel MD [address] [place] [address] 105 [place] [address] PCP - General Pediatrics 06/05/18 04/25/22 No Pcp, Pcp PCP - General 06/08/22 07/19/22 Guadalupe Mcbride MD PCP - General Family Medicine 07/20/22 11/01/23 Sena Dominguez PA [address] [place] [address] [place] [address] PCP - BRADY Physician Underwriter 11/02/23 Levy Barry MD [address] [place] [address] [place] [address] PCP - General Family Medicine 12/20/23 documented as of this encounter
--- OUTSIDE RECORDS SUMMARY | 2025-07-26 15:23 | XMS_ITS | Encounter Summary ---
Author Organization [facility] work ([facility]) Address [address] [place] [address] Care Team Providers Care Metal Roofing Mechanic Name Role Phone Meme Steel MD Primary Care Provider [phone] No Pcp, Pcp Primary Care Provider Unavailabl Guadalupe Bardales MD Primary Care Provider [phone] Sena Dominguez Unavailable [phone] Levy Barry MD Primary Care Provider Unavailab le Source Comments The information that you have received may contain highly confidential and/or federally protected health information. This information has been disclosed to you from records protected by [facility]. The law prohibits you from making any [...] please contact the sender immediately.[facility] ([facility]) Encounter Details Date Type Department Care Team (Late st Contact Info) Description 04/15/2011 Historical Note [facility] [employer] System Devyn Vásquez MD [address] [place] [address] [phone] Social History Tobacco Use Types Packs/Day Years [...] LEATHA CARRILLO - [facility] [address] [place] [phone] Brenda Clay MD [address] [facility] [address] [place] [address] 04/15/2026 10:00 AM EDT Office Visit LEATHA [facility] at [facility] + [facility] [address] [facility] [address] [place] [address] Sena Dominguez PA [address] [facility] [place] [address] documented as of this encounter Visit Diagnoses Not on filedocumented in this encounter Care Teams Metal Roofing Mechanic Relationship Specialty Start Date End Date Meme Steel MD [address] [place] [address] 105 [place] [address] PCP - General Pediatrics 06/05/18 04/25/22 No Pcp, Pcp PCP - General 06/08/22 07/19/22 Guadalupe Mcbride MD PCP - General Family Medicine 07/20/22 11/01/23 Sena Dominguez PA [address] [place] [address] [place] [address] PCP - BRADY Physician Airfield Engineer Officer 11/02/23 Levy Barry MD [address] [place] [address] [place] [address] PCP - General Family Medicine 12/20/23 documented as of this encounter
--- OUTSIDE RECORDS SUMMARY | 2025-07-26 15:23 | XMS_ITS | Encounter Summary ---
Author Organization [facility] work ([facility]) Address [address] [place] [address] Care Team Providers Care President Finance Company Name Role Phone Meme Steel MD Primary Care Provider [phone] No Pcp, Pcp Primary Care Provider Unavailabl Guadalupe Bardales MD Primary Care Provider [phone] Sena Dominguez Unavailable [phone] Levy Barry MD Primary Care Provider Unavailab le Source Comments The information that you have received may contain highly confidential and/or federally protected health information. This information has been disclosed to you from records protected by [facility]. The law prohibits you [...] in error, please contact the sender immediately.[facility] ([facility]) Encounter Details Date Type Department Care Team (Late st Contact Info) Description 03/09/2017 Historical Note [facility] [employer] System Devyn Vásquez MD [address] [place] [address] [phone] Social History Tobacco Use Types Packs/Day Years [...] AM EST Office Visit LEATHA CARRILLO - [facility] at [facility] [address] [place] [phone] Brenda Clay MD [address] [facility] [address] [place] [address] 04/15/2026 10:00 AM EDT Office Visit LEATHA Primary [facility] at [facility] + [facility] [address] [facility] [address] [place] [address] Sena Dominguez PA [address] [facility] [place] [address] documented as of this encounter Visit Diagnoses Not on filedocumented in this encounter Care Teams President Finance Company Relationship Specialty Start Date End Date Meme Steel MD [address] [place] [address] 105 [place] [address] PCP - General Pediatrics 06/05/18 04/25/22 No Pcp, Pcp PCP - General 06/08/22 07/19/22 Guadalupe Mcbride MD PCP - General Family Medicine 07/20/22 11/01/23 Sena Dominguez PA [address] [place] [address] [place] [address] PCP - BRADY Physician String Studies Director 11/02/23 Levy Barry MD [address] [place] [address] [place] [address] PCP - General Family Medicine 12/20/23 documented as of this encounter
--- OUTSIDE RECORDS SUMMARY | 2025-07-26 15:23 | XMS_ITS | Encounter Summary ---
Author Organization [facility] work ([facility]) Address [address] [place] [address] Care Team Providers Care Lens Marker Name Role Phone Meme Steel MD Primary Care Provider [phone] Pcp, Pcp Primary Care Provider Unavailabl Guadalupe Bardales MD Primary Care Provider [phone] Sena Dominguez Unavailable [phone] Levy Barry MD Primary Care Provider Unavailab le Source Comments The information that you have received may contain highly confidential and/or federally protected health information. This information has been disclosed to you from records protected by [facility]. The law prohibits you from making [...] error, please contact the sender immediately.[facility] ([facility]) Encounter Details Date Type Department Care Team (Late st Contact Info) Description 11/07/2005 Historical Note [facility] Breaker System Devyn Vásquez MD [address] [place] [address] [phone] Social History Tobacco Use Types Packs/Day Years [...] AM EST Office Visit LEATHA CARRILLO - [facility] [address] [facility] [address] [place] [phone] Brenda Clay MD [address] [facility] [address] [place] [address] 04/15/2026 10:00 AM EDT Office Visit [facility]HA [facility] at [facility] + [facility] [address] [facility] [address] [place] [address] Sena Dominguez PA [address] [facility] [place] [address] documented as of this encounter Visit Diagnoses Not on filedocumented in this encounter Care Teams Lens Marker Relationship Specialty Start Date End Date Meme Steel MD [address] [place] [address] 105 [place] [address] PCP - General Pediatrics 06/05/18 04/25/22 No Pcp, Pcp PCP - General 06/08/22 07/19/22 Guadalupe Mcbride MD PCP - General Family Medicine 07/20/22 11/01/23 Sena Dominguez PA [address] [place] [address] [place] [address] PCP - BRADY Physician Commercial Baker Helper 11/02/23 Levy Barry MD [address] [place] [address] [place] [address] PCP - General Family Medicine 12/20/23 documented as of this encounter
--- OUTSIDE RECORDS SUMMARY | 2025-07-26 15:23 | XMS_ITS | Encounter Summary ---
Author Organization [facility] work ([facility]) Address [address] [place] [address] Care Team Providers Care Equipment Maintenance Engineer Name Role Phone Meme Steel MD Primary Care Provider [phone] No Pcp, Pcp Primary Care Provider Unavailabl Guadalupe Bardales MD Primary Care Provider [phone] Sena Dominguez Unavailable [phone] Levy Barry MD Primary Care Provider Unavailab le Source Comments The information that you have received may contain highly confidential and/or federally protected health information. This information has been disclosed to you from records protected by [facility]. The law prohibits you from [...] in error, please contact the sender immediately.[facility] ([facility]) Encounter Details Date Type Department Care Team (Late st Contact Info) Description 11/25/2010 Historical Note [facility] [employer] System Devyn Vásquez MD [address] [place] [address] [phone] Social History Tobacco Use Types Packs/Day Years [...] LEATHA CARRILLO - [facility] [address] [facility] [address] [place] [phone] Brenda Clay MD [address] [facility] [address] [place] [address] 04/15/2026 10:00 AM EDT Office Visit LEATHA [facility] at [facility] + [facility] [address] [facility] [address] [place] [address] Sena Dominguez PA [address] [facility] [place] [address] documented as of this encounter Visit Diagnoses Not on filedocumented in this encounter Care Teams Equipment Maintenance Engineer Relationship Specialty Start Date End Date Meme Steel MD [address] [place] [address] 105 [place] [address] PCP - General Pediatrics 06/05/18 04/25/22 No Pcp, Pcp PCP - General 06/08/22 07/19/22 Guadalupe Mcbride MD PCP - General Family Medicine 07/20/22 11/01/23 Sena Dominguez PA [address] [place] [address] [place] [address] PCP - BRADY Physician Painting Contractor 11/02/23 Levy Barry MD [address] [place] [address] [place] [address] PCP - General Family Medicine 12/20/23 documented as of this encounter
--- OUTSIDE RECORDS SUMMARY | 2025-07-26 15:23 | XMS_ITS | Encounter Summary ---
Author Organization [facility] work ([facility]) Address [address] [place] [address] Care Team Providers Care Paper Roll Machine Operator Name Role Phone Meme Steel MD Primary Care Provider [phone] No Pcp, Pcp Primary Care Provider Unavailabl Guadalupe Bardales MD Primary Care Provider [phone] Sena Dominguez Unavailable [phone] Levy Barry MD Primary Care Provider Unavailab le Source Comments The information that you have received may contain highly confidential and/or federally protected health information. This information has been disclosed to you from records protected by [employer] [facility]. The law prohibits you [...] information in error, please contact the sender immediately.[facility] ([facility]) Encounter Details Date Type Department Care Team (Late st Contact Info) Description 09/22/2011 Historical Note [facility] [employer] System Devyn Vásquez MD [address] [place] [address] [phone] Social History Tobacco Use Types Packs/Day Years [...] LEATHA CARRILLO - [facility] [address] [place] [phone] Brenda Clay MD [address] [facility] [address] [place] [address] 04/15/2026 10:00 AM EDT Office Visit LE[facility]HA [facility] at [facility] + [facility] [address] [facility] [address] [place] [address] Sena Dominguez PA [address] [facility] [place] [address] documented as of this encounter Visit Diagnoses Not on filedocumented in this encounter Care Teams Paper Roll Machine Operator Relationship Specialty Start Date End Date Meme Steel MD [address] [place] [address] [place] [address] PCP - General Pediatrics 06/05/18 04/25/22 No Pcp, Pcp PCP - General 06/08/22 07/19/22 Guadalupe Mcbride MD PCP - General Family Medicine 07/20/22 11/01/23 Sena Dominguez PA [address] [place] [address] [place] [address] PCP - BRADY Physician Car Retarder Operator 11/02/23 Levy Barry MD [address] [place] [address] [place] [address] PCP - General Family Medicine 12/20/23 documented as of this encounter
--- OUTSIDE RECORDS SUMMARY | 2025-07-26 15:23 | XMS_ITS | Encounter Summary ---
Author Organization [facility] work ([facility]) Address [address] [place] [address] Care Team Providers Care Sales Consultant Residential Manager Name Role Phone Meme Steel MD Primary Care Provider [phone] No Pcp, Pcp Primary Care Provider Unavailabl Guadalupe Bardales MD Primary Care Provider [phone] Sena Dominguez Unavailable [phone] Levy Barry MD Primary Care Provider Unavailab le Source Comments The information that you have received may contain highly confidential and/or federally protected health information. This information has been disclosed to you from records protected by [facility]. The law prohibits you from making any [...] information in error, please contact the sender immediately.[facility] ([facility]) Encounter Details Date Type Department Care Team (Late st Contact Info) Description 10/31/2017 Historical Note [facility] CrowdBouncer System Devyn Vásquez MD [address] [place] [address] [phone] Social History Tobacco Use Types Packs/Day Years [...] AM EST Office Visit LEATHA CARRILLO - [facility] [address] [facility] [address] [place] [phone] Brenda Clay MD [address] [facility] [address] [place] [address] 04/15/2026 10:00 AM EDT Office Visit [facility] + [facility] [address] [facility] [address] [place] [address] Sena Dominguez PA [address] [facility] [place] [address] documented as of this encounter Visit Diagnoses Not on filedocumented in this encounter Care Teams Sales Consultant Residential Manager Relationship Specialty Start Date End Date Meme Steel MD [address] [place] [address] [place] [address] PCP - General Pediatrics 06/05/18 04/25/22 No Pcp, Pcp PCP - General 06/08/22 07/19/22 Guadalupe Mcbride MD PCP - General Family Medicine 07/20/22 11/01/23 Sena Dominguez PA [address] [place] [address] [place] [address] PCP - BRADY Physician Marketing Education Teacher 11/02/23 Levy Barry MD [address] [place] [address] [place] [address] PCP - General Family Medicine 12/20/23 documented as of this encounter
--- OUTSIDE RECORDS SUMMARY | 2025-07-26 15:23 | XMS_ITS | Encounter Summary ---
Author Organization [facility] work ([facility]) Address [address] [place] [address] Care Team Providers Care Pediatric Audiologist Name Role Phone Meme Steel MD Primary Care Provider [phone] Pcp, Pcp Primary Care Provider Unavailabl Guadalupe Bardales MD Primary Care Provider [phone] Sena Dominguez Unavailable [phone] Levy Barry MD Primary Care Provider Unavailab le Source Comments The information that you have received may contain highly confidential and/or federally protected health information. This information has been disclosed to you from records protected by [facility]. The law prohibits you [...] contact the sender immediately.[facility] ([facility]) Encounter Details Date Type Department Care Team (Late st Contact Info) Description 11/09/2005 Historical Note [facility] Greenling System Devyn Vásquez MD [address] [place] [address] [phone] Social History Tobacco Use Types Packs/Day Years [...] LEATHA CARRILLO - [facility] [address] [facility] [address] [place] [phone] Brenda Clay MD [address] [facility] [address] [place] [address] 04/15/2026 10:00 AM EDT Office Visit [facility]HA [facility] at [facility] + [facility] [address] [facility] [address] [place] [address] Sena Dominguez PA [address] [facility] [place] [address] documented as of this encounter Visit Diagnoses Not on filedocumented in this encounter Care Teams Pediatric Audiologist Relationship Specialty Start Date End Date Meme Steel MD [address] [place] [address] 105 [place] [address] PCP - General Pediatrics 06/05/18 04/25/22 No Pcp, Pcp PCP - General 06/08/22 07/19/22 Guadalupe Mcbride MD PCP - General Family Medicine 07/20/22 11/01/23 Sena Dominguez PA [address] [place] [address] [place] [address] PCP - BRADY Physician Automotive Glass Technician 11/02/23 Levy Barry MD [address] [place] [address] [place] [address] PCP - General Family Medicine 12/20/23 documented as of this encounter
--- OUTSIDE RECORDS SUMMARY | 2025-07-26 15:23 | XMS_ITS | Encounter Summary ---
Author Organization [facility] work ([facility]) Address [address] [place] [address] Care Team Providers Care Stereoplotter Operator Name Role Phone Meme Steel MD Primary Care Provider [phone] Pcp, Pcp Primary Care Provider Unavailabl Guadalupe Bardales MD Primary Care Provider Sena Dominguez Unavailable [phone] Levy Barry MD Primary Care Provider Unavailab le Source Comments The information that you have received may contain highly confidential and/or federally protected health information. This information has been disclosed to you from records protected by [facility]. The law prohibits you from making [...] please contact the sender immediately.[facility] ([facility]) Encounter Details Date Type Department Care Team (Late st Contact Info) Description 01/16/2017 Historical Note [facility] Croak.it System Devyn Vásquez MD [address] [place] [address] [phone] Social History Tobacco Use Types Packs/Day Years [...] EST Office Visit LEATHA CARRILLO - [facility] [address] [facility] [address] [place] [phone] Brenda Clay MD [address] [facility] [address] [place] [address] 04/15/2026 10:00 AM EDT Office Visit [facility] [address] [facility] [address] [place] [address] Sean Dominguez PA [address] [facility] [place] [address] documented as of this encounter Visit Diagnoses Not on filedocumented in this encounter Care Teams Stereoplotter Operator Relationship Specialty Start Date End Date Meme Steel MD [address] [place] [address] 105 [place] [address] PCP - General Pediatrics 06/05/18 04/25/22 No Pcp, Pcp PCP - General 06/08/22 07/19/22 Guadalupe Mcbride MD PCP - General Family Medicine 07/20/22 11/01/23 Sena Dominguez PA [address] [place] [address] [place] [address] PCP - BRADY Physician Surgical Consultant 11/02/23 Levy Barry MD [address] [place] [address] [place] [address] PCP - General Family Medicine 12/20/23 documented as of this encounter
--- OUTSIDE RECORDS SUMMARY | 2025-07-26 15:23 | XMS_ITS | Encounter Summary ---
Author Organization [facility] work ([facility]) Address [address] [facility] [address] [place] [address] Care Team Providers Care Job Printer Apprentice Name Role Phone Meme Steel MD Primary Care Provider [phone] No Pcp, Pcp Primary Care Provider Unavailabl Guadalupe Bardales MD Primary Care Provider [phone] Sena Dominguez Unavailable [phone] Levy Barry MD Primary Care Provider Unavailab le Source Comments The information that you have received may contain highly confidential and/or federally protected health information. This information has been disclosed to you from records protected by [facility]. The law prohibits you from making [...] in error, please contact the sender immediately.[facility] ([facility]) Encounter Details Date Type Department Care Team (Late st Contact Info) Description 02/16/2012 Historical Note [facility] TOTEMS (formerly Nitrogram) System Devyn Vásquez MD [address] [place] [address] [phone] Social History Tobacco Use Types Packs/Day Years [...] LEATHA CARRILLO - [facility] [address] [facility] [address] [place] [phone] Brenda Clay MD [address] [facility] [address] [place] [address] 04/15/2026 10:00 AM EDT Office Visit [facility]HA [facility] at [facility] + [facility] [address] [facility] [address] [place] [address] Sena Dominguez PA [address] [facility] [place] [address] documented as of this encounter Visit Diagnoses Not on filedocumented in this encounter Care Teams Job Printer Apprentice Relationship Specialty Start Date End Date Meme Steel MD [address] [place] [address] 105 [place] [address] PCP - General Pediatrics 06/05/18 04/25/22 No Pcp, Pcp PCP - General 06/08/22 07/19/22 Guadalupe Mcbride MD PCP - General Family Medicine 07/20/22 11/01/23 Sena Dominguez PA [address] [place] [address] [place] [address] PCP - BRADY Physician Movie Stunt Performer 11/02/23 Levy Barry MD [address] [place] [address] [place] [address] PCP - General Family Medicine 12/20/23 documented as of this encounter
--- OUTSIDE RECORDS SUMMARY | 2025-07-26 15:23 | XMS_ITS | Encounter Summary ---
Author Organization [facility] work ([facility]) Address [address] [place] [address] Care Team Providers Care Impregnator Carbon Products Name Role Phone Meme Steel MD Primary Care Provider [phone] Pcp, Pcp Primary Care Provider Unavailabl Guadalupe Bardales MD Primary Care Provider [phone] Sena Dominguez Unavailable [phone] Levy Barry MD Primary Care Provider Unavailab le Source Comments The information that you have received may contain highly confidential and/or federally protected health information. This information has been disclosed to you from records protected by [facility] [place]. The law prohibits you from making [...] the sender immediately.[facility] ([facility]) Encounter Details Date Type Department Care Team (Late st Contact Info) Description 04/12/2011 Historical Note [facility] EquityZen System Devyn Vásquez MD [address] [place] [address] [phone] Social History Tobacco Use Types Packs/Day Years [...] AM EST Office Visit LEATHA CARRILLO - [facility] [address] [facility] [address] [place] [phone] Brenda Clay MD [address] [facility] [address] [place] [phone] 04/15/2026 10:00 AM EDT Office Visit LE[facility]HA [facility] at [facility] + [facility] [address] [facility] [address] [place] [phone] Sena Dominguez PA [address] [facility] [place] [address] documented as of this encounter Visit Diagnoses Not on filedocumented in this encounter Care Teams Impregnator Carbon Products Relationship Specialty Start Date End Date Meme Steel MD [address] [place] [address] 105 [place] [address] PCP - General Pediatrics 06/05/18 04/25/22 No Pcp, Pcp PCP - General 06/08/22 07/19/22 Guadalupe Mcbride MD PCP - General Family Medicine 07/20/22 11/01/23 Sena Dominguez PA [address] [place] [address] [place] [address] PCP - BRADY Physician Marking Stitcher 11/02/23 Levy Barry MD [address] [place] [address] [place] [address] PCP - General Family Medicine 12/20/23 documented as of this encounter
--- OUTSIDE RECORDS SUMMARY | 2025-07-26 15:23 | XMS_ITS | Encounter Summary ---
Author Organization [facility] work ([facility]) Address [address] [facility] [address] [place] [address] Care Team Providers Care Clinical Office Technician Name Role Phone Meme Steel MD Primary Care Provider [phone] Pcp, Pcp Primary Care Provider Unavailabl Guadalupe Bardales MD Primary Care Provider [phone] Sena Dominguez Unavailable [phone] Levy Barry MD Primary Care Provider Unavailab le Source Comments The information that you have received may contain highly confidential and/or federally protected health information. This information has been disclosed to you from records protected by [facility]. The law prohibits you [...] information in error, please contact the sender immediately.[facility] ([facility]) Encounter Details Date Type Department Care Team (Late st Contact Info) Description 11/07/2005 Historical Note [facility] Business Monitor International System Devyn Vásquez MD [address] [place] [address] [phone] Social History Tobacco Use Types Packs/Day Years [...] LEATHA CARRILLO - [facility] [address] [facility] [address] [place] [phone] Brenda Clay MD [address] [facility] [address] [place] [address] 04/15/2026 10:00 AM EDT Office Visit LEATHA [facility] at [facility] + [facility] [address] [facility] [address] [place] [address] Sena Dominguez PA [address] [facility] [place] [address] documented as of this encounter Visit Diagnoses Not on filedocumented in this encounter Care Teams Clinical Office Technician Relationship Specialty Start Date End Date Meme Steel MD [address] [place] [address] [place] [address] PCP - General Pediatrics 06/05/18 04/25/22 No Pcp, Pcp PCP - General 06/08/22 07/19/22 Guadalupe Mcbride MD PCP - General Family Medicine 07/20/22 11/01/23 Sena Dominguez PA [address] [place] [address] [place] [address] PCP - BRADY Physician Electroslag Welding Machine Operator 11/02/23 Levy Barry MD [address] [place] [address] [place] [address] PCP - General Family Medicine 12/20/23 documented as of this encounter
--- OUTSIDE RECORDS SUMMARY | 2025-07-26 15:23 | XMS_ITS | Encounter Summary ---
Author Organization [facility] work ([facility]) Address [address] [place] [address] Care Team Providers Care Kids Activities Coach Name Role Phone Meme Steel MD Primary Care Provider [phone] Pcp, Pcp Primary Care Provider Unavailabl Guadalupe Bardales MD Primary Care Provider [phone] Sena Dominguez Unavailable [phone] Levy Barry MD Primary Care Provider Unavailab le Source Comments The information that you have received may contain highly confidential and/or federally protected health information. This information has been disclosed to you from records protected by [facility]. The law prohibits you from [...] sender immediately.[facility] ([facility]) Encounter Details Date Type Department Care Team (Late st Contact Info) Description 11/04/2005 Historical Note [facility] Industry Dive System Devyn Vásquez MD [address] [place] [address] [phone] Social History Tobacco Use Types Packs/Day Years [...] EST Office Visit LEATHA CARRILLO - [facility] [address] [facility] [address] [place] [phone] Brenda Clay MD [address] [facility] [address] [place] [address] 04/15/2026 10:00 AM EDT Office Visit LEATHA [facility] [address] [facility] [address] [place] [address] Sena Dominguez PA [address] [facility] [place] [address] documented as of this encounter Visit Diagnoses Not on filedocumented in this encounter Care Teams Kids Activities Coach Relationship Specialty Start Date End Date Meme Steel MD [address] [place] [address] 105 [place] [address] PCP - General Pediatrics 06/05/18 04/25/22 No Pcp, Pcp PCP - General 06/08/22 07/19/22 Guadalupe Mcbride MD PCP - General Family Medicine 07/20/22 11/01/23 Sena Dominguez PA [address] [place] [address] [place] [address] PCP - BRADY Physician Transit Planning Director 11/02/23 Levy Barry MD [address] [place] [address] [place] [address] PCP - General Family Medicine 12/20/23 documented as of this encounter
--- OUTSIDE RECORDS SUMMARY | 2025-07-26 15:23 | XMS_ITS | Encounter Summary ---
Author Organization [facility] work ([facility]) Address [address] [place] [address] Care Team Providers Care Rock Mason Apprentice Name Role Phone Meme Steel MD Primary Care Provider [phone] Pcp, Pcp Primary Care Provider Unavailabl Guadalupe Bardales MD Primary Care Provider [phone] Sena Dominguez Unavailable [phone] Levy Barry MD Primary Care Provider Unavailab le Source Comments The information that you have received may contain highly confidential and/or federally protected health information. This information has been disclosed to you from records protected by [facility]. The law prohibits you from making [...] information in error, please contact the sender immediately. ([facility]) Encounter Details Date Type Department Care Team (Late st Contact Info) Description 11/06/2005 Historical Note [facility] BioKier System Devyn Vásquez MD [address] [place] [address] [phone] Social History Tobacco Use Types Packs/Day Years [...] LEATHA CARRILLO - [facility] [address] [facility] [address] [place] [phone] Brenda Clay MD [address] [facility] [address] [place] [address] 04/15/2026 10:00 AM EDT Office Visit LEATHA [facility] at [facility] [address] [facility] [address] [place] [address] Sena Dominguez PA [address] [facility] [place] [address] documented as of this encounter Visit Diagnoses Not on filedocumented in this encounter Care Teams Rock Mason Apprentice Relationship Specialty Start Date End Date Meme Steel MD [address] [place] [address] [place] [address] PCP - General Pediatrics 06/05/18 04/25/22 No Pcp, Pcp PCP - General 06/08/22 07/19/22 Guadalupe Mcrbide MD PCP - General Family Medicine 07/20/22 11/01/23 Sena Dominguez PA [address] [place] [address] [place] [address] PCP - BRADY Physician Sandblast Carver 11/02/23 Levy aBrry MD [address] [place] [address] [place] [address] PCP - General Family Medicine 12/20/23 documented as of this encounter
--- OUTSIDE RECORDS SUMMARY | 2025-07-26 15:23 | XMS_ITS | Encounter Summary ---
Author Organization [facility] work ([facility]) Address [address] [place] [address] Care Team Providers Care Personnel Security Assistant Name Role Phone Meme Steel MD Primary Care Provider [phone] No Pcp, Pcp Primary Care Provider Unavailabl Guadalupe Bardales MD Primary Care Provider [phone] Sena Dominguez Unavailable [phone] Levy Barry MD Primary Care Provider Unavailab le Source Comments The information that you have received may contain highly confidential and/or federally protected health information. This information has been disclosed to you from records protected by [facility]. The law prohibits you from [...] error, please contact the sender immediately.[facility] ([facility]) Encounter Details Date Type Department Care Team (Late st Contact Info) Description 11/28/2005 Historical Note [facility] MeetingSense Software System Devyn Vásquez MD [address] [place] [address] [phone] Social History Tobacco Use Types Packs/Day Years [...] LEATHA CARRILLO - [facility] [address] [facility] [address] [place] [phone] Brenda Clay MD [address] [facility] [address] [place] [address] 04/15/2026 10:00 AM EDT Office Visit [facility] [address] [facility] [address] [place] [address] Sena Dominguez PA [address] [facility] [place] [address] documented as of this encounter Visit Diagnoses Not on filedocumented in this encounter Care Teams Personnel Security Assistant Relationship Specialty Start Date End Date Meme Steel MD [address] [place] [address] 105 [place] [address] PCP - General Pediatrics 06/05/18 04/25/22 No Pcp, Pcp PCP - General 06/08/22 07/19/22 Guadalupe Mcbride MD PCP - General Family Medicine 07/20/22 11/01/23 Sena Dominguez PA [address] [place] [address] [place] [address] PCP - BRADY Physician Aviculturist 11/02/23 Levy Barry MD [address] [place] [address] [place] [address] PCP - General Family Medicine 12/20/23 documented as of this encounter
--- OUTSIDE RECORDS SUMMARY | 2025-07-26 15:23 | XMS_ITS | Encounter Summary ---
Author Organization [facility] work ([facility]) Address [address] [facility] [place] [address] Care Team Providers Care Buckle Sewer Machine Name Role Phone Meme Steel MD Primary Care Provider No Pcp, Pcp Primary Care Provider Unavailabl Guadalupe Bardales MD Primary Care Provider [phone] Sena Dominguez Unavailable [phone] Levy Barry MD Primary Care Provider Unavailab le Source Comments The information that you have received may contain highly confidential and/or federally protected health information. This information has been disclosed to you from records protected by [facility]. The law prohibits you from making any [...] information in error, please contact the sender immediately.[facility] ([facility]) Encounter Details Date Type Department Care Team (Late st Contact Info) Description 10/18/2005 Historical Note [facility] Tangent Medical Technologies System Devyn Vásquez MD [address] [place] [address] [phone] Social History Tobacco Use Types Packs/Day Years [...] AM EST Office Visit LEATHA CARRILLO - [facility] [address] [facility] [address] [place] [phone] Brenda Clay MD [address] [facility] [address] [place] [address] 04/15/2026 10:00 AM EDT Office Visit LE[facility]HA [facility] at [facility] + [facility] [address] [facility] [address] [place] [address] Sena Dominguez PA [address] [facility] [place] [address] documented as of this encounter Visit Diagnoses Not on filedocumented in this encounter Care Teams Buckle Sewer Machine Relationship Specialty Start Date End Date Meme Steel MD [address] [place] [address] 105 [place] [address] PCP - General Pediatrics 06/05/18 04/25/22 No Pcp, Pcp PCP - General 06/08/22 07/19/22 Guadalupe Mcbride MD PCP - General Family Medicine 07/20/22 11/01/23 Sena Dominguez PA [address] [place] [address] [place] [address] PCP - BRADY Physician Arc Welder 11/02/23 Levy Barry MD [address] [place] [address] [place] [address] PCP - General Family Medicine 12/20/23 documented as of this encounter
--- OUTSIDE RECORDS SUMMARY | 2025-07-26 15:23 | XMS_ITS | Encounter Summary ---
Author Organization [facility] work ([facility]) Address [address] [place] [address] Care Team Providers Care Forge Utility Worker Name Role Phone Meme Steel MD Primary Care Provider [phone] No Pcp, Pcp Primary Care Provider Unavailabl Guadalupe Bardales MD Primary Care Provider [phone] Sena Dominguez Unavailable [phone] Levy Barry MD Primary Care Provider Unavailab le Source Comments The information that you have received may contain highly confidential and/or federally protected health information. This information has been disclosed to you from records protected by [facility]. The law prohibits you from making [...] the sender immediately.[facility] ([facility]) Encounter Details Date Type Department Care Team (Late st Contact Info) Description 11/04/2005 Historical Note [facility] Thinknum System Devyn Vásquez MD [address] [place] [address] [phone] Social History Tobacco Use Types Packs/Day Years [...] CARRILLO - [facility] at [facility] [address] [facility] [address] [place] [phone] Brenda Clay MD [address] [facility] [address] [place] [address] 04/15/2026 10:00 AM EDT Office Visit [facility] + [facility] [address] [facility] [address] [place] [address] Sena Dominguez PA [address] [facility] [place] [address] documented as of this encounter Visit Diagnoses Not on filedocumented in this encounter Care Teams Forge Utility Worker Relationship Specialty Start Date End Date Meme Steel MD [address] [place] [address] 105 [place] [address] PCP - General Pediatrics 06/05/18 04/25/22 No Pcp, Pcp PCP - General 06/08/22 07/19/22 Guadalupe Mcbride MD PCP - General Family Medicine 07/20/22 11/01/23 Sena Dominguez PA [address] [place] [address] [place] [address] PCP - BRADY Physician Stained Glass Painter 11/02/23 Levy Barry MD [address] [place] [address] [place] [address] PCP - General Family Medicine 12/20/23 documented as of this encounter
--- OUTSIDE RECORDS SUMMARY | 2025-07-26 15:23 | XMS_ITS | Encounter Summary ---
Author Organization [facility] work ([facility]) Address [address] [place] [address] Care Team Providers Care Welfare Centre Manager Name Role Phone Meme Steel MD Primary Care Provider [phone] Pcp, Pcp Primary Care Provider Unavailabl Guadalupe Bardales MD Primary Care Provider [phone] Sena Dominguez Unavailable [phone] Levy Barry MD Primary Care Provider Unavailab le Source Comments The information that you have received may contain highly confidential and/or federally protected health information. This information has been disclosed to you from records protected by [facility]. The law prohibits you from making [...] in error, please contact the sender immediately.[facility] ([facility]) Encounter Details Date Type Department Care Team (Late st Contact Info) Description 09/29/2011 Historical Note [facility] Appolicious System Devyn Vásquez MD [address] [place] [address] [phone] Social History Tobacco Use Types Packs/Day Years [...] LEATHA CARRILLO - [facility] [address] [facility] [address] [place] [phone] Brenda Clay MD [address] [facility] [address] [place] [address] 04/15/2026 10:00 AM EDT Office Visit [facility]HA [facility] at [facility] + [facility] [address] [facility] [address] [place] [address] Sena Dominguez PA [address] [facility] [place] [address] documented as of this encounter Visit Diagnoses Not on filedocumented in this encounter Care Teams Welfare Centre Manager Relationship Specialty Start Date End Date Meme Steel MD [address] [place] [address] 105 [place] [address] PCP - General Pediatrics 06/05/18 04/25/22 No Pcp, Pcp PCP - General 06/08/22 07/19/22 Guadalupe Mcbride MD PCP - General Family Medicine 07/20/22 11/01/23 Sena Dominguez PA [address] [place] [address] [place] [address] PCP - BRADY Physician Operations Boardman 11/02/23 Levy Barry MD [address] [place] [address] [place] [address] PCP - General Family Medicine 12/20/23 documented as of this encounter
--- OUTSIDE RECORDS SUMMARY | 2025-07-26 15:23 | XMS_ITS | Encounter Summary ---
Author Organization [facility] work ([facility]) Address [address] [place] [address] Care Team Providers Care Production Weigher Name Role Phone Meme Steel MD Primary Care Provider [phone] Pcp, Pcp Primary Care Provider Unavailabl Guadalupe Bardales MD Primary Care Provider [phone] Sena Dominguez Unavailable [phone] Levy Barry MD Primary Care Provider Unavailab le Source Comments The information that you have received may contain highly confidential and/or federally protected health information. This information has been disclosed to you from records protected by [facility]. The law prohibits you from [...] in error, please contact the sender immediately.[facility] ([facility]) Encounter Details Date Type Department Care Team (Late st Contact Info) Description 09/08/2011 Historical Note [facility] Fluent Home System Devyn Vásquez MD [address] [place] [address] [phone] Social History Tobacco Use Types Packs/Day Years [...] AM EST Office Visit LEATHA CARRILLO - [facility] [address] [facility] [address] [place] [phone] Brenda Clay MD [address] [facility] [address] [place] [address] 04/15/2026 10:00 AM EDT Office Visit [facility] + [facility] [address] [facility] [address] [place] [address] Sena Dominguez PA [address] [facility] [place] [address] documented as of this encounter Visit Diagnoses Not on filedocumented in this encounter Care Teams Production Weigher Relationship Specialty Start Date End Date Meme Steel MD [address] [place] [address] 105 [place] [address] PCP - General Pediatrics 06/05/18 04/25/22 No Pcp, Pcp PCP - General 06/08/22 07/19/22 Guadalupe Mcbride MD PCP - General Family Medicine 07/20/22 11/01/23 Sena Dominguez PA [address] [place] [address] [place] [address] PCP - BRADY Physician Sausage Stringer 11/02/23 Levy Barry MD [address] [place] [address] [place] [address] PCP - General Family Medicine 12/20/23 documented as of this encounter
--- OUTSIDE RECORDS SUMMARY | 2025-07-26 15:23 | XMS_ITS | Encounter Summary ---
Author Organization [facility] work ([facility]) Address [address] [place] [address] Care Team Providers Care Tableau Developer Name Role Phone Meme Steel MD Primary Care Provider [phone] No Pcp, Pcp Primary Care Provider Unavailabl Guadalupe Bardales MD Primary Care Provider [phone] Sena Dominguez Unavailable [phone] Levy Barry MD Primary Care Provider Unavailab le Source Comments The information that you have received may contain highly confidential and/or federally protected health information. This information has been disclosed to you from records protected by [facility]. The law prohibits you from making [...] please contact the sender immediately.[facility] ([facility]) Encounter Details Date Type Department Care Team (Late st Contact Info) Description 12/15/2005 Historical Note [facility] Simple Admit System Devyn Vásquez MD [address] [place] [address] [phone] Social History Tobacco Use Types Packs/Day Years [...] - [facility] at [facility] [address] [facility] [address] [place] [phone] Brenda Clay MD [address] [facility] [address] [place] [address] 04/15/2026 10:00 AM EDT Office Visit [facility] at [facility] + [facility] [address] [facility] [address] [place] [address] Sena Dominguez PA [address] [facility] [place] [address] documented as of this encounter Visit Diagnoses Not on filedocumented in this encounter Care Teams Tableau Developer Relationship Specialty Start Date End Date Meme Steel MD [address] [place] [address] 105 [place] [address] PCP - General Pediatrics 06/05/18 04/25/22 No Pcp, Pcp PCP - General 06/08/22 07/19/22 Guadalupe Mcbride MD PCP - General Family Medicine 07/20/22 11/01/23 Sena Dominguez PA [address] [place] [address] [place] [address] PCP - BRADY Physician Show Host/Hostess 11/02/23 Levy Barry MD [address] [place] [address] [place] [address] PCP - General Family Medicine 12/20/23 documented as of this encounter
--- OUTSIDE RECORDS SUMMARY | 2025-07-26 15:23 | XMS_ITS | Encounter Summary ---
Author Organization [facility] work ([facility]) Address [address] [place] [address] Care Team Providers Care Secondary School Principal Name Role Phone Meme Steel MD Primary Care Provider [phone] No Pcp, Pcp Primary Care Provider Unavailabl Guadalupe Bardlaes MD Primary Care Provider [phone] Sena Dominguez Unavailable [phone] Levy Barry MD Primary Care Provider Unavailab le Source Comments The information that you have received may contain highly confidential and/or federally protected health information. This information has been disclosed to you from records protected by [facility]. The law prohibits you from making [...] the sender immediately.[facility] ([facility]) Encounter Details Date Type Department Care Team (Late st Contact Info) Description 04/14/2011 Historical Note [facility] Black Duck Software System Devyn Vásquez MD [address] [place] [address] [phone] Social History Tobacco Use Types Packs/Day Years [...] AM EST Office Visit LEATHA CARRILLO - [facility] [employer] [address] [facility] [address] [place] [phone] Brenda Clay MD [address] [facility] [address] [place] [phone] 04/15/2026 10:00 AM EDT Office Visit [facility]HA [facility] + [facility] [address] [facility] [address] [place] [address] Sena Dominguez PA [address] [facility] [place] [address] documented as of this encounter Visit Diagnoses Not on filedocumented in this encounter Care Teams Secondary School Principal Relationship Specialty Start Date End Date Meme Steel MD [address] [place] [address] 105 [place] [address] PCP - General Pediatrics 06/05/18 04/25/22 No Pcp, Pcp PCP - General 06/08/22 07/19/22 Guadalupe Mcbride MD PCP - General Family Medicine 07/20/22 11/01/23 Sena Dominguez PA [address] [place] [address] [place] [address] PCP - BRADY Physician Police Lieutenant Precinct 11/02/23 Levy Barry MD [address] [place] [address] [place] [address] PCP - General Family Medicine 12/20/23 documented as of this encounter
--- OUTSIDE RECORDS SUMMARY | 2025-07-26 15:23 | XMS_ITS | Encounter Summary ---
Author Organization [facility] work ([facility]) Address [address] [place] [address] Care Team Providers Care Crime Scene Technician Name Role Phone Meme Steel MD Primary Care Provider [phone] Pcp, Pcp Primary Care Provider Unavailabl Guadalupe Bardales MD Primary Care Provider [phone] Sena Dominguez Unavailable [phone] Levy Barry MD Primary Care Provider Unavailab le Source Comments The information that you have received may contain highly confidential and/or federally protected health information. This information has been disclosed to you from records protected by [facility]. The law prohibits you [...] error, please contact the sender immediately.[facility] ([facility]) Encounter Details Date Type Department Care Team (Late st Contact Info) Description 10/31/2017 Historical Note [facility] Allyes Advertisement Network System Devyn Vásquez MD [address] [place] [address] [phone] Social History Tobacco Use Types Packs/Day Years [...] Visit LEATHA CARRILLO - [facility] [address] [facility] [address] [place] [phone] Brenda Clay MD [address] [facility] [address] [place] [address] 04/15/2026 10:00 AM EDT Office Visit LEATHA [facility] + [facility] [address] [facility] [address] [place] [address] Sena Dominguez PA [address] [facility] [place] [address] documented as of this encounter Visit Diagnoses Not on filedocumented in this encounter Care Teams Crime Scene Technician Relationship Specialty Start Date End Date Meme Steel MD [address] [place] [address] 105 [place] [address] PCP - General Pediatrics 06/05/18 04/25/22 No Pcp, Pcp PCP - General 06/08/22 07/19/22 Guadalupe Mcbride MD PCP - General Family Medicine 07/20/22 11/01/23 Sena Dominguez PA [address] [place] [address] [place] [address] PCP - RBADY Physician Account Support Associate 11/02/23 Levy Barry MD [address] [place] [address] [place] [address] PCP - General Family Medicine 12/20/23 documented as of this encounter
--- OUTSIDE RECORDS SUMMARY | 2025-07-26 15:23 | XMS_ITS | Encounter Summary ---
Author Organization [facility] work ([facility]) Address [address] [place] [address] Care Team Providers Care Plant Technician/Control Room Operator Name Role Phone Meme Steel MD Primary Care Provider No Pcp, Pcp Primary Care Provider Unavailabl Guadalupe Bardales MD Primary Care Provider [phone] Sena Dominguez Unavailable [phone] Lvey Barry MD Primary Care Provider Unavailab le Source Comments The information that you have received may contain highly confidential and/or federally protected health information. This information has been disclosed to you from records protected by [facility]. The law prohibits you from making any [...] in error, please contact the sender immediately.[facility] ([facility]) Encounter Details Date Type Department Care Team (Late st Contact Info) Description 02/16/2012 Historical Note [facility] Yoopies System Devyn Vásquez MD [address] [place] [address] [phone] Social History Tobacco Use Types Packs/Day Years [...] LEATHA CARRILLO - [facility] [address] [facility] [address] [place] [phone] Brenda Clay MD [address] [facility] [address] [place] [address] 04/15/2026 10:00 AM EDT Office Visit LEATHA [facility] at [facility] [address] [facility] [address] [place] [address] Sena Dominguez PA [address] [facility] [place] [address] documented as of this encounter Visit Diagnoses Not on filedocumented in this encounter Care Teams Plant Technician/Control Room Operator Relationship Specialty Start Date End Date Meme Steel MD [address] [place] [address] 105 [place] [address] PCP - General Pediatrics 06/05/18 04/25/22 No Pcp, Pcp PCP - General 06/08/22 07/19/22 Guadalupe Mcbride MD PCP - General Family Medicine 07/20/22 11/01/23 Sena Dominguez PA [address] [place] [address] [place] [address] PCP - BRADY Physician Foster Care Worker 11/02/23 Levy Barry MD [address] [place] [address] [place] [address] PCP - General Family Medicine 12/20/23 documented as of this encounter
--- OUTSIDE RECORDS SUMMARY | 2025-07-26 15:23 | XMS_ITS | Encounter Summary ---
Author Organization [facility] work ([facility]) Address [address] [place] [address] Care Team Providers Care Sleeve Wheel Maker Name Role Phone Meme Steel MD Primary Care Provider [phone] Pcp, Pcp Primary Care Provider Unavailabl Guadalupe Bardales MD Primary Care Provider [phone] Sena Dominguez Unavailable [phone] Levy Barry MD Primary Care Provider Unavailab le Source Comments The information that you have received may contain highly confidential and/or federally protected health information. This information has been disclosed to you from records protected by [facility]. The law prohibits you from making [...] information in error, please contact the sender immediately.[facility] ([facility]) Encounter Details Date Type Department Care Team (Late st Contact Info) Description 01/06/2006 Historical Note [facility] Zzish System Devyn Vásquez MD [address] [place] [address] [phone] Social History Tobacco Use Types Packs/Day Years [...] LEATHA CARRILLO - [facility] [address] [facility] [address] [place] [phone] Brenda Clay MD [address] [facility] [address] [place] [address] 04/15/2026 10:00 AM EDT Office Visit LEATHA [facility] at [facility] + [facility] [address] [facility] [address] [place] [address] Sena Dominguez PA [address] [facility] [place] [address] documented as of this encounter Visit Diagnoses Not on filedocumented in this encounter Care Teams Sleeve Wheel Maker Relationship Specialty Start Date End Date Meme Steel MD [address] [place] [address] 105 [place] [address] PCP - General Pediatrics 06/05/18 04/25/22 No Pcp, Pcp PCP - General 06/08/22 07/19/22 Guadalupe Mcbride MD PCP - General Family Medicine 07/20/22 11/01/23 Sena Dominguez PA [address] [place] [address] [place] [address] PCP - BRADY Physician Cardiac Cath Rn 11/02/23 Levy Barry MD [address] [place] [address] [place] [address] PCP - General Family Medicine 12/20/23 documented as of this encounter
--- OUTSIDE RECORDS SUMMARY | 2025-07-26 15:23 | XMS_ITS | Encounter Summary ---
Author Organization [facility] work ([facility]) Address [address] [place] [address] Care Team Providers Care Synoptic Meteorologist Name Role Phone Meme Steel MD Primary Care Provider [phone] No Pcp, Pcp Primary Care Provider Unavailabl Guadalupe Bardales MD Primary Care Provider [phone] Sena Dominguez Unavailable [phone] Levy Barry MD Primary Care Provider Unavailab le Source Comments The information that you have received may contain highly confidential and/or federally protected health information. This information has been disclosed to you from records protected by [facility]. The law prohibits you from [...] in error, please contact the sender immediately.[facility] ([facility]) Encounter Details Date Type Department Care Team (Late st Contact Info) Description 11/21/2005 Historical Note [facility] Surf Air System Devyn Vásquez MD [address] [place] [address] [phone] Social History Tobacco Use Types Packs/Day Years [...] EST Office Visit LEATHA CARRILLO - [facility] at [facility] [address] [facility] [address] [place] [phone] Brenda Clay MD [address] [facility] [address] [place] [address] 04/15/2026 10:00 AM EDT Office Visit LEATHA [facility] at [facility] [address] [facility] [address] [place] [address] Sena Dominguez PA [address] [facility] [place] [address] documented as of this encounter Visit Diagnoses Not on filedocumented in this encounter Care Teams Synoptic Meteorologist Relationship Specialty Start Date End Date Meme Steel MD [address] [place] [address] 105 [place] [address] PCP - General Pediatrics 06/05/18 04/25/22 No Pcp, Pcp PCP - General 06/08/22 07/19/22 Guadalupe Mcbride MD PCP - General Family Medicine 07/20/22 11/01/23 Sena Dominguez PA [address] [place] [address] [place] [address] PCP - BRADY Physician Cloth Shrinking Tester 11/02/23 Levy Barry MD [address] [place] [address] [place] [address] PCP - General Family Medicine 12/20/23 documented as of this encounter
--- OUTSIDE RECORDS SUMMARY | 2025-07-26 15:23 | XMS_ITS | Encounter Summary ---
Author Organization [facility] work ([facility]) Address [address] [place] [address] Care Team Providers Care Tape Weaver Name Role Phone Meem Steel MD Primary Care Provider [phone] No Pcp, Pcp Primary Care Provider Unavailabl Guadalupe Bardales MD Primary Care Provider [phone] Sena Dominguez Unavailable Levy Barry MD Primary Care Provider Unavailab le Source Comments The information that you have received may contain highly confidential and/or federally protected health information. This information has been disclosed to you from records protected by [facility]. The law prohibits you from making [...] information in error, please contact the sender immediately[facility] ([facility]) Encounter Details Date Type Department Care Team (Late st Contact Info) Description 01/06/2006 Historical Note [facility] JibJab System Devyn Vásquez MD [address] [place] [address] [phone] Social History Tobacco Use Types Packs/Day Years [...] LEATHA CARRILLO - [facility] [address] [facility] [address] [place] [phone] Brenda Clay MD [address] [facility] [address] [place] [address] 04/15/2026 10:00 AM EDT Office Visit LEATHA [facility] at [facility] + [facility] [address] [facility] [address] [place] [address] Sena Dominguez PA [address] [facility] [place] [address] documented as of this encounter Visit Diagnoses Not on filedocumented in this encounter Care Teams Tape Weaver Relationship Specialty Start Date End Date Meme Steel MD [address] [place] [address] 105 [place] [address] PCP - General Pediatrics 06/05/18 04/25/22 No Pcp, Pcp PCP - General 06/08/22 07/19/22 Guadalupe Mcbride MD PCP - General Family Medicine 07/20/22 11/01/23 Sena Dominguez PA [address] [place] [address] [place] [address] PCP - BRADY Physician Business Administration Instructor 11/02/23 Levy Barry MD [address] [place] [address] [place] [address] PCP - General Family Medicine 12/20/23 documented as of this encounter
--- OUTSIDE RECORDS SUMMARY | 2025-07-26 15:23 | XMS_ITS | Encounter Summary ---
Author Organization [facility] work ([facility]) Address [address] [place] [address] Care Team Providers Care Solution Mixer Name Role Phone Meme Steel MD Primary Care Provider [phone] No Pcp, Pcp Primary Care Provider Unavailabl Guadalupe Bardales MD Primary Care Provider [phone] Sena Dominguez Unavailable [phone] Levy Barry MD Primary Care Provider Unavailab le Source Comments The information that you have received may contain highly confidential and/or federally protected health information. This information has been disclosed to you from records protected by [facility]. The law prohibits you from [...] information in error, please contact the sender immediately.[facility] ([facility]) Encounter Details Date Type Department Care Team (Late st Contact Info) Description 03/09/2017 Historical Note [facility] Particle Code System Devyn Vásquez MD [address] [place] [address] [phone] Social History Tobacco Use Types Packs/Day Years [...] CARRILLO - [facility] [address] [facility] [address] [place] [phone] Brenda Clay MD [address] [facility] [address] [place] [address] 04/15/2026 10:00 AM EDT Office Visit [facility]HA [facility] at [facility] + [facility] [address] [place] [address] Sena Dominguez PA [address] [facility] [place] [address] documented as of this encounter Visit Diagnoses Not on filedocumented in this encounter Care Teams Solution Mixer Relationship Specialty Start Date End Date Meme Steel MD [address] [place] [address] [address] [place] [address] PCP - General Pediatrics 06/05/18 04/25/22 No Pcp, Pcp PCP - General 06/08/22 07/19/22 Guadalupe Mcbride MD PCP - General Family Medicine 07/20/22 11/01/23 Sena Dominguez PA [address] [place] [address] [place] [address] PCP - BRADY Physician Photogrammetric Compilation Specialist 11/02/23 Levy Barry MD [address] [place] [address] [place] [address] PCP - General Family Medicine 12/20/23 documented as of this encounter
--- OUTSIDE RECORDS SUMMARY | 2025-07-26 15:23 | XMS_ITS | Encounter Summary ---
Author Organization [facility] work ([facility]) Address [address] [facility] [facility] [address] [place] [address] Care Team Providers Care Managed Care Manager Name Role Phone Meme Steel MD Primary Care Provider [phone] Pcp, Pcp Primary Care Provider Unavailabl Guadalupe Bardales MD Primary Care Provider [phone] Sena Dominguez Unavailable [phone] Levy Barry MD Primary Care Provider Unavailab le Source Comments The information that you have received may contain highly confidential and/or federally protected health information. This information has been disclosed to you from records protected by [facility]. The law prohibits you [...] information in error, please contact the sender immediately.[facility] ([facility]) Encounter Details Date Type Department Care Team (Late st Contact Info) Description 10/18/2005 Historical Note [facility] eVariant System Devyn Vásquez MD [address] [place] [address] [phone] Social History Tobacco Use Types Packs/Day Years [...] - [facility] [address] [facility] [address] [place] [phone] Brenda Clay MD [address] [facility] [address] [place] [address] 04/15/2026 10:00 AM EDT Office Visit LEATHA [facility] at [facility] [address] [facility] [address] [place] [address] Sena Dominguez PA [address] [facility] [place] [address] documented as of this encounter Visit Diagnoses Not on filedocumented in this encounter Care Teams Managed Care Manager Relationship Specialty Start Date End Date Meme Steel MD [address] [place] [address] 105 [place] [address] PCP - General Pediatrics 06/05/18 04/25/22 No Pcp, Pcp PCP - General 06/08/22 07/19/22 Guadalupe Mcbride MD PCP - General Family Medicine 07/20/22 11/01/23 Sena Dominguez PA [address] [place] [address] [place] [address] PCP - BRADY Physician Excelsior Cutter 11/02/23 Levy Barry MD [address] [place] [address] [place] [address] PCP - General Family Medicine 12/20/23 documented as of this encounter
--- OUTSIDE RECORDS SUMMARY | 2025-07-26 15:23 | XMS_ITS | Encounter Summary ---
Author Organization [facility] work ([facility]) Address [address] [place] [address] Care Team Providers Care Store Associate Name Role Phone Meme Steel MD Primary Care Provider [phone] Pcp, Pcp Primary Care Provider Unavailabl e Guadalupe Mcbride MD Primary Care Provider [phone] Sena Dominguez Unavailable [phone] Levy Barry MD Primary Care Provider Unavailab le Source Comments The information that you have received may contain highly confidential and/or federally protected health information. This information has been disclosed to you from records protected by [facility]. The law prohibits you from making [...] information in error, please contact the sender immediately.[facility] ([facility]) Encounter Details Date Type Department Care Team (Late st Contact Info) Description 10/31/2017 Historical Note [facility] Primary Care - [facility] - [address] [place] [address] Devyn Vásquez [place] [address] Social History Tobacco Use Types Packs/Day Years Used Date Smoking Tobacco: Never Assessed Comments Unknown Sex and Gender Information Value Date Recorded Sex Assigned at Not on file Legal Sex Female 1:04 AM EDT Gender Identity Not on file Sexual Orientation Not on file documented as of this encounter Plan of Treatment Upcoming Encounters Date Type Department Care Team ([facility] st Contact Info) Description 10/10/2025 10:00 AM EST Office Visit LEATHA [facility] [address] [facility] [address] [place] [phone] Brenda Clay MD [address] [facility] [address] [place] [phone] 04/15/2026 10:00 AM EDT Office Visit LEATHA Primary [facility] at [facility] + [facility] [address] [facility] [address] [place] [address] Sena Dominguez PA [address] [place] [address] [place] [address] documented as of this encounter Visit Diagnoses Not on filedocumented in this encounter Care Teams Store Associate Relationship Specialty Start Date End Date Meme Steel MD [address] [place] [address] 105 [place] [address] PCP - General Pediatrics 06/05/18 04/25/22 No Pcp, Pcp PCP - General 06/08/22 07/19/22 Guadalupe Mcbride MD PCP - General Family Medicine 07/20/22 11/01/23 Sena Dominguez PA [address] [place] [address] [place] [address] PCP - BRADY Physician Recovery Advocate 11/02/23 Levy Barry MD [address] [facility] [place] [address] PCP - General Family Medicine 12/20/23 documented as of this encounter
--- OUTSIDE RECORDS SUMMARY | 2025-07-26 15:23 | XMS_ITS | Encounter Summary ---
Author Organization [facility] work ([facility]) Address [address] [place] [address] Care Team Providers Care Compliance Analyst Name Role Phone Meme Steel MD Primary Care Provider [phone] Pcp, Pcp Primary Care Provider Unavailabl Guadalupe Bardales MD Primary Care Provider [phone] Sena Dominguez Unavailable [phone] Levy Barry MD Primary Care Provider Unavailab le Source Comments The information that you have received may contain highly confidential and/or federally protected health information. This information has been disclosed to you from records protected by [facility]. The law prohibits you from [...] contact the sender immediately.[facility] ([facility]) Encounter Details Date Type Department Care Team (Late st Contact Info) Description 04/15/2011 Historical Note [facility] Applied Superconductor System Devyn Vásquez MD [address] [place] [address] [phone] Social History Tobacco Use Types Packs/Day Years [...] CARRILLO - [facility] [address] [facility] [address] [place] [phone] Brenda Clay MD [address] [facility] [address] [place] [address] 04/15/2026 10:00 AM EDT Office Visit LEATHA [facility] at [facility] + [facility] [address] [facility] [address] [place] [address] Sena Dominguez PA [address] [facility] [place] [address] documented as of this encounter Visit Diagnoses Not on filedocumented in this encounter Care Teams Compliance Analyst Relationship Specialty Start Date End Date Meme Steel MD [address] [place] [address] 105 [place] [address] PCP - General Pediatrics 06/05/18 04/25/22 No Pcp, Pcp PCP - General 06/08/22 07/19/22 Guadalupe Mcbride MD PCP - General Family Medicine 07/20/22 11/01/23 Sena Dominguez PA [address] [place] [address] [place] [address] PCP - BRADY Physician Sheriffs 11/02/23 Levy Barry MD [address] [place] [address] [place] [address] PCP - General Family Medicine 12/20/23 documented as of this encounter
--- OUTSIDE RECORDS SUMMARY | 2025-07-26 15:23 | XMS_ITS | Encounter Summary ---
Author Organization [facility] work ([facility]) Address [address] [place] [address] Care Team Providers Care Wheel Truing Machine Tender Name Role Phone Meme Steel MD Primary Care Provider [phone] Pcp, Pcp Primary Care Provider Unavailabl Guadalupe Bardales MD Primary Care Provider [phone] Sena Dominguez Unavailable [phone] Levy Barry MD Primary Care Provider Unavailab le Source Comments The information that you have received may contain highly confidential and/or federally protected health information. This information has been disclosed to you from records protected by [facility]. The law prohibits you from [...] information in error, please contact the sender immediately.[facility] ([facility]) Encounter Details Date Type Department Care Team (Late st Contact Info) Description 09/08/2011 Historical Note [facility] Sensee System Devyn Vásquez MD [address] [place] [address] [phone] Social History Tobacco Use Types Packs/Day Years [...] LEATHA CARRILLO - [facility] [address] [facility] [address] [place] [phone] Brenda Clay MD [address] [facility] [address] [place] [address] 04/15/2026 10:00 AM EDT Office Visit [facility]HA [facility] [address] [facility] [address] [place] [address] Sena Dominguez PA [address] [facility] [place] [address] documented as of this encounter Visit Diagnoses Not on filedocumented in this encounter Care Teams Wheel Truing Machine Tender Relationship Specialty Start Date End Date Meme Steel MD [address] [place] [address] 105 [place] [address] PCP - General Pediatrics 06/05/18 04/25/22 No Pcp, Pcp PCP - General 06/08/22 07/19/22 Guadalupe Mcbride MD PCP - General Family Medicine 07/20/22 11/01/23 Sena Dominguez PA [address] [place] [address] [place] [address] PCP - BRADY Physician Gun Number 11/02/23 Levy Barry MD [address] [place] [address] [place] [address] PCP - General Family Medicine 12/20/23 documented as of this encounter
--- OUTSIDE RECORDS SUMMARY | 2025-07-26 15:23 | XMS_ITS | Encounter Summary ---
Author Organization [facility] work ([facility]) Address [address] [facility] [address] [place] [address] Care Team Providers Care Credit Specialist Name Role Phone Meme Steel MD Primary Care Provider [phone] No Pcp, Pcp Primary Care Provider Unavailabl Guadalupe Bardales MD Primary Care Provider [phone] Sena Dominguez Unavailable [phone] Levy Barry MD Primary Care Provider Unavailab le Source Comments The information that you have received may contain highly confidential and/or federally protected health information. This information has been disclosed to you from records protected by [facility]. The law prohibits you [...] the sender immediately.[facility] ([facility]) Encounter Details Date Type Department Care Team (Late st Contact Info) Description 01/16/2017 Historical Note [facility] [employer] System Devyn Vásquez MD [address] [place] [address] [phone] Social History Tobacco Use Types Packs/Day Years [...] - [facility] [address] [facility] [address] [place] [phone] Brenda Clay MD [address] [facility] [address] [place] [phone] 04/15/2026 10:00 AM EDT Office Visit LEATHA Primary [facility] at [facility] [address] [facility] [address] [place] [address] Sena Dominguez PA [address] [facility] [place] [address] documented as of this encounter Visit Diagnoses Not on filedocumented in this encounter Care Teams Credit Specialist Relationship Specialty Start Date End Date Meme Steel MD [address] [place] [address] 105 [place] [address] PCP - General Pediatrics 06/05/18 04/25/22 No Pcp, Pcp PCP - General 06/08/22 07/19/22 Guadalupe Mcbride MD PCP - General Family Medicine 07/20/22 11/01/23 Sena Dominguez PA [address] [place] [address] [place] [address] PCP - BRADY Physician Flight Control Tower Operator 11/02/23 Levy Barry MD [address] [place] [address] [place] [address] PCP - General Family Medicine 12/20/23 documented as of this encounter
--- OUTSIDE RECORDS SUMMARY | 2025-07-26 15:23 | XMS_ITS | Encounter Summary ---
Author Organization [facility] work ([facility]) Address [address] [place] [address] Care Team Providers Care Mouthpiece Maker Name Role Phone Meme Steel MD Primary Care Provider [phone] Pcp, Pcp Primary Care Provider Unavailabl Guadalupe Bardales MD Primary Care Provider [phone] Sena Dominguez Unavailable [phone] Levy Barry MD Primary Care Provider Unavailab le Source Comments The information that you have received may contain highly confidential and/or federally protected health information. This information has been disclosed to you from records protected by [facility]. The law prohibits you [...] information in error, please contact the sender immediately.[facility] ([facility]) Encounter Details Date Type Department Care Team (Late st Contact Info) Description 11/03/2005 Historical Note [facility] Accruent System Devyn Vásquez MD [address] [place] [address] [phone] Social History Tobacco Use Types Packs/Day Years [...] LEATHA CARRILLO - [facility] [address] [facility] [address] [place] [phone] Brenda Clay MD [address] [facility] [address] [place] [phone] 04/15/2026 10:00 AM EDT Office Visit LEATHA Primary Care at [facility] + [facility] [address] [facility] [address] [place] [address] Sena Dominguez PA [address] [facility] [place] [address] documented as of this encounter Visit Diagnoses Not on filedocumented in this encounter Care Teams Mouthpiece Maker Relationship Specialty Start Date End Date Meme Steel MD [address] [place] [address] 105 [place] [address] PCP - General Pediatrics 06/05/18 04/25/22 No Pcp, Pcp PCP - General 06/08/22 07/19/22 Guadalupe Mcbride MD PCP - General Family Medicine 07/20/22 11/01/23 Sena Dominguez PA [address] [place] [address] [place] [address] PCP - BRADY Physician Cafeteria Team Leader 11/02/23 Levy Barry MD [address] [place] [address] [place] [address] PCP - General Family Medicine 12/20/23 documented as of this encounter
--- OUTSIDE RECORDS SUMMARY | 2025-07-26 15:23 | XMS_ITS | Encounter Summary ---
Author Organization [facility] work ([facility]) Address [address] [facility] [address] [place] [address] Care Team Providers Care County Sheriff Name Role Phone Meme Steel MD Primary Care Provider [phone] No Pcp, Pcp Primary Care Provider Unavailabl Guadalupe Bardales MD Primary Care Provider [phone] Sena Dominguez Unavailable [phone] Levy Barry MD Primary Care Provider Unavailab le Source Comments The information that you have received may contain highly confidential and/or federally protected health information. This information has been disclosed to you from records protected by [facility]. The law prohibits you [...] contact the sender immediately.[facility] ([facility]) Encounter Details Date Type Department Care Team (Late st Contact Info) Description 05/18/2011 Historical Note [facility] CoachLogix System Devyn Vásquez MD [address] [place] [address] [phone] Social History Tobacco Use Types Packs/Day Years [...] CARRILLO - [facility] [address] [facility] [address] [place] [phone] Brenda Clay MD [address] [facility] [address] [place] [address] 04/15/2026 10:00 AM EDT Office Visit LEATHA Primary Care at [facility] + [facility] [address] [facility] [address] [place] [address] Sena Dominguez PA [address] [facility] [place] [address] documented as of this encounter Visit Diagnoses Not on filedocumented in this encounter Care Teams County Sheriff Relationship Specialty Start Date End Date Meme Steel MD [address] [place] [address] 105 [place] [address] PCP - General Pediatrics 06/05/18 04/25/22 No Pcp, Pcp PCP - General 06/08/22 07/19/22 Guadalupe Mcbride MD PCP - General Family Medicine 07/20/22 11/01/23 Sena Dominguez PA [address] [place] [address] [place] [address] PCP - BRADY Physician Biofuels Research Scientist 11/02/23 Levy Barry MD [address] [place] [address] [place] [address] PCP - General Family Medicine 12/20/23 documented as of this encounter
--- OUTSIDE RECORDS SUMMARY | 2025-07-26 15:23 | XMS_ITS | Encounter Summary ---
Author Organization [facility] work ([facility]) Address [address] [address] [facility] [address] [place] [address] Care Team Providers Care Kiln Transfer Operator Name Role Phone Meme Steel MD Primary Care Provider [phone] Pcp, Pcp Primary Care Provider Unavailabl Guadalupe Bardales MD Primary Care Provider [phone] Sena Dominguez Unavailable [phone] Levy Barry MD Primary Care Provider Unavailab le Source Comments The information that you have received may contain highly confidential and/or federally protected health information. This information has been disclosed to you from records protected by [facility]. The law prohibits you from [...] error, please contact the sender immediately.[facility] ([facility]) Encounter Details Date Type Department Care Team (Late st Contact Info) Description 11/21/2005 Historical Note [facility] BioArray System Devyn Vásquez MD [address] [place] [address] [phone] Social History Tobacco Use Types Packs/Day Years [...] EST Office Visit LEATHA CARRILLO - [facility] [address] [facility] [address] [place] [phone] Brenda Clay MD [address] [facility] [address] [place] [address] 04/15/2026 10:00 AM EDT Office Visit LEATHA Primary Care at [facility] + [facility] [address] [facility] [address] [place] [address] Sena Dominguez PA [address] [facility] [place] [address] documented as of this encounter Visit Diagnoses Not on filedocumented in this encounter Care Teams Kiln Transfer Operator Relationship Specialty Start Date End Date Meme Steel MD [address] [place] [address] 105 [place] [address] PCP - General Pediatrics 06/05/18 04/25/22 No Pcp, Pcp PCP - General 06/08/22 07/19/22 Guadalupe Mcbride MD PCP - General Family Medicine 07/20/22 11/01/23 Sena Dominguez PA [address] [place] [address] [place] [address] PCP - BRADY Physician Business Mgr 11/02/23 Levy Barry MD [address] [place] [address] [place] [address] PCP - General Family Medicine 12/20/23 documented as of this encounter
--- OUTSIDE RECORDS SUMMARY | 2025-07-26 15:23 | XMS_ITS | Encounter Summary ---
Author Organization [facility] work ([facility]) Address [address] [place] [address] Care Team Providers Care Meter Repair Shop Supervisor Name Role Phone Meme Steel MD Primary Care Provider [phone] Pcp, Pcp Primary Care Provider Unavailabl Guadalupe Bardales MD Primary Care Provider [phone] Sena Dominguez Unavailable [phone] Levy Barry MD Primary Care Provider Unavailab le Source Comments The information that you have received may contain highly confidential and/or federally protected health information. This information has been disclosed to you from records protected by [facility]. The law prohibits you from making [...] please contact the sender immediately.[facility] ([facility]) Encounter Details Date Type Department Care Team (Late st Contact Info) Description 04/15/2011 Historical Note [facility] LiquidCompass System Devyn Vásquez MD [address] [place] [address] [phone] Social History Tobacco Use Types Packs/Day Years [...] CARRILLO - [facility] at [facility] [address] [place] [phone] Brenda Clay MD [address] [facility] [address] [place] [address] 04/15/2026 10:00 AM EDT Office Visit [facility]HA [facility] at [facility] + [facility] [address] [facility] [place] [address] Sena Dominguez [place] [address] [facility] [place] [address] documented as of this encounter Visit Diagnoses Not on filedocumented in this encounter Care Teams Meter Repair Shop Supervisor Relationship Specialty Start Date End Date Meme Steel MD [address] [place] [address] 105 [place] [address] PCP - General Pediatrics 06/05/18 04/25/22 No Pcp, Pcp PCP - General 06/08/22 07/19/22 Guadalupe Mcbride MD PCP - General Family Medicine 07/20/22 11/01/23 Sena Dominguez PA [address] [place] [address] [place] [address] PCP - BRADY Physician Retail Sales Associate Seasonal 11/02/23 Levy Barry MD [address] [place] [address] [place] [address] PCP - General Family Medicine 12/20/23 documented as of this encounter
--- OUTSIDE RECORDS SUMMARY | 2025-07-26 15:23 | XMS_ITS | Encounter Summary ---
Author Organization [facility] work ([facility]) Address [address] [place] [address] Care Team Providers Care Scaler Packer Name Role Phone Meme Steel MD Primary Care Provider [phone] Pcp, Pcp Primary Care Provider Unavailabl Guadalupe Bardales MD Primary Care Provider [phone] Sena Dominguez Unavailable [phone] Levy Barry MD Primary Care Provider Unavailab le Source Comments The information that you have received may contain highly confidential and/or federally protected health information. This information has been disclosed to you from records protected by [facility]. The law prohibits [...] the sender immediately.[facility] ([facility]) Encounter Details Date Type Department Care Team (Late st Contact Info) Description 04/15/2011 Historical Note [facility] UroSens System Devyn Vásquez MD [address] [place] [address] [phone] Social History Tobacco Use Types Packs/Day Years [...] Visit LEATHA CARRILLO - [facility] [address] [place] [phone] Brenda Clay MD [address] [facility] [address] [place] [address] 04/15/2026 10:00 AM EDT Office Visit [facility] at [facility] + [facility] [address] [place] [address] Sena Dominguez PA [address] [facility] [place] [address] documented as of this encounter Visit Diagnoses Not on filedocumented in this encounter Care Teams Scaler Packer Relationship Specialty Start Date End Date Meme Steel MD [address] [place] [address] 105 [place] [address] PCP - General Pediatrics 06/05/18 04/25/22 No Pcp, Pcp PCP - General 06/08/22 07/19/22 Guadalupe Mcbride MD PCP - General Family Medicine 07/20/22 11/01/23 Sena Dominguez PA [address] [place] [address] [place] [address] PCP - BRADY Physician Microsoft Crm Developer 11/02/23 Levy Barry MD [address] [place] [address] [place] [address] PCP - General Family Medicine 12/20/23 documented as of this encounter
--- OUTSIDE RECORDS SUMMARY | 2025-07-26 15:23 | XMS_ITS | Encounter Summary ---
Author Organization [facility] work ([facility]) Address [address] [place] [address] Care Team Providers Care Balloon Artist Name Role Phone Meme Steel MD Primary Care Provider [phone] Pcp, Pcp Primary Care Provider Unavailabl Guadalupe Bardales MD Primary Care Provider [phone] Sena Dominguez Unavailable [phone] Levy Barry MD Primary Care Provider Unavailab le Source Comments The information that you have received may contain highly confidential and/or federally protected health information. This information has been disclosed to you from records protected by [facility]. The law prohibits you from making any [...] information in error, please contact the sender immediately.[facility] ([facility]) Encounter Details Date Type Department Care Team (Late st Contact Info) Description 03/09/2017 Historical Note [facility] Unity Technologies System Devyn Vásquez MD [address] [place] [address] [phone] Social History Tobacco Use Types Packs/Day Years [...] CARRILLO - [facility] [address] [facility] [address] [place] [phone] Brenda Clay MD [address] [facility] [address] [place] [address] 04/15/2026 10:00 AM EDT Office Visit [facility]HA [facility] at [facility] + [facility] [address] [facility] [facility] [address] [place] [address] Sena Dominguez PA [address] [facility] [place] [address] documented as of this encounter Visit Diagnoses Not on filedocumented in this encounter Care Teams Balloon Artist Relationship Specialty Start Date End Date Meme Steel MD [address] [place] [address] 105 [place] [address] PCP - General Pediatrics 06/05/18 04/25/22 No Pcp, Pcp PCP - General 06/08/22 07/19/22 Guadalupe Mcbride MD PCP - General Family Medicine 07/20/22 11/01/23 Sena Dominguez PA [address] [place] [address] [place] [address] PCP - BRADY Physician Material Man 11/02/23 Levy Barry MD [address] [place] [address] [place] [address] PCP - General Family Medicine 12/20/23 documented as of this encounter
--- OUTSIDE RECORDS SUMMARY | 2025-07-26 15:23 | XMS_ITS | Encounter Summary ---
Author Organization [facility] work ([facility]) Address [address] [place] [address] Care Team Providers Care Release Of Information Specialist Name Role Phone Meme Steel MD Primary Care Provider [phone] Pcp, Pcp Primary Care Provider Unavailabl Guadalupe Bardales MD Primary Care Provider [phone] Sena Domignuez Unavailable [phone] Levy Barry MD Primary Care Provider Unavailab le Source Comments The information that you have received may contain highly confidential and/or federally protected health information. This information has been disclosed to you from records protected by [facility]. The law prohibits you [...] information in error, please contact the sender immediately.[facility] ([facility]) Encounter Details Date Type Department Care Team (Late st Contact Info) Description 11/06/2005 Historical Note [facility] Venture Infot[employer] Private System Devyn Vásquez MD [address] [place] [address] [phone] Social History Tobacco Use Types Packs/Day Years [...] LEATHA CARRILLO - [facility] [address] [facility] [address] [address] [place] [phone] Brenda Clay MD [address] [facility] [address] [place] [address] 04/15/2026 10:00 AM EDT Office Visit [facility]HA [facility] at [facility] + [facility] [address] [place] [address] Sena Dominguez PA [address] [facility] [place] [address] documented as of this encounter Visit Diagnoses Not on filedocumented in this encounter Care Teams Release Of Information Specialist Relationship Specialty Start Date End Date Meme Steel MD [address] [place] [address] 105 [place] [address] PCP - General Pediatrics 06/05/18 04/25/22 No Pcp, Pcp PCP - General 06/08/22 07/19/22 Guadalupe Mcbride MD PCP - General Family Medicine 07/20/22 11/01/23 Sena Dominguez PA [address] [place] [address] [place] [address] PCP - BRADY Physician Tufter Operator 11/02/23 Levy Barry MD [address] [place] [address] [place] [address] PCP - General Family Medicine 12/20/23 documented as of this encounter
--- OUTSIDE RECORDS SUMMARY | 2025-07-26 15:23 | XMS_ITS | Encounter Summary ---
Author Organization [facility] work ([facility]) Address [address] [place] [address] Care Team Providers Care Boring Inspector Name Role Phone Meme Steel MD Primary Care Provider [phone] Pcp, Pcp Primary Care Provider Unavailabl Guadalupe Bardales MD Primary Care Provider [phone] Sena Dominguez Unavailable [phone] Levy Barry MD Primary Care Provider Unavailab le Source Comments The information that you have received may contain highly confidential and/or federally protected health information. This information has been disclosed to you from records protected by [employer]. The law prohibits you from making [...] information in error, please contact the sender immediately.[facility] ([facility]) Encounter Details Date Type Department Care Team (Late st Contact Info) Description 11/28/2005 Historical Note [facility] BuildDirect System Devyn Vásquez MD [address] [place] [address] [phone] Social History Tobacco Use Types Packs/Day Years [...] AM EST Office Visit LEATHA CARRILLO - [facility] [address] [facility] [address] [place] [phone] Brenda Clay MD [address] [facility] [address] [place] [address] 04/15/2026 10:00 AM EDT Office Visit [facility]HA [facility] at [facility] [address] [place] [address] Sena Dominguez PA [address] [place] [address] documented as of this encounter Visit Diagnoses Not on filedocumented in this encounter Care Teams Boring Inspector Relationship Specialty Start Date End Date Meme Steel MD [address] [place] [address] 105 [place] [address] PCP - General Pediatrics 06/05/18 04/25/22 No Pcp, Pcp PCP - General 06/08/22 07/19/22 Guadalupe Mcbride MD PCP - General Family Medicine 07/20/22 11/01/23 Sena Dominguez PA [address] [place] [address] [place] [address] PCP - BRADY Physician Salesperson Yard Goods 11/02/23 Levy Barry MD [address] [place] [address] [place] [address] PCP - General Family Medicine 12/20/23 documented as of this encounter
--- OUTSIDE RECORDS SUMMARY | 2025-07-26 15:24 | XMS_ITS | Encounter Summary ---
Author Organization [facility] work ([facility]) Address [address] [place] [address] Care Team Providers Care Manager Review Name Role Phone Meme Steel MD Primary Care Provider [phone] Pcp, Pcp Primary Care Provider Unavailabl Guadalupe Bardales MD Primary Care Provider [phone] Sena Dominguez Unavailable [phone] Levy Barry MD Primary Care Provider Unavailab le Source Comments The information that you have received may contain highly confidential and/or federally protected health information. This information has been disclosed to you from records protected by [facility]. The law prohibits you from making [...] contact the sender immediately.[facility] ([facility]) Encounter Details Date Type Department Care Team (Late st Contact Info) Description 06/20/2005 Historical Note [facility] Kiwi System Devyn Vásquez MD [address] [place] [address] [phone] Social History Tobacco Use Types Packs/Day Years [...] Office Visit LEATHA CARRILLO - [facility] [address] [place] [phone] Brenda Clay MD [address] [facility] [address] [place] [address] 04/15/2026 10:00 AM EDT Office Visit [facility]HA [facility] at [facility] + [facility] [address] [facility] [facility] [facility] [address] [place] [address] Sena Dominguez PA [address] [facility] [place] [address] documented as of this encounter Visit Diagnoses Not on filedocumented in this encounter Care Teams Manager Review Relationship Specialty Start Date End Date Meme Steel MD [address] [place] [address] 105 [place] [address] PCP - General Pediatrics 06/05/18 04/25/22 No Pcp, Pcp PCP - General 06/08/22 07/19/22 Guadalupe Mcbride MD PCP - General Family Medicine 07/20/22 11/01/23 Sena Dominguez PA [address] [place] [address] [place] [address] PCP - BRADY Physician Conservation Science Teacher 11/02/23 Levy Barry MD [address] [place] [address] [place] [address] PCP - General Family Medicine 12/20/23 documented as of this encounter
--- OUTSIDE RECORDS SUMMARY | 2025-07-26 15:24 | XMS_ITS | Encounter Summary ---
Author Organization [facility] work ([facility]) Address [address] [place] [address] Care Team Providers Care Technical Account Representative Name Role Phone Meme Steel MD Primary Care Provider [phone] Pcp, Pcp Primary Care Provider Unavailabl Guadalupe Bardales MD Primary Care Provider [phone] Sena Dominguez Unavailable [phone] Levy Barry MD Primary Care Provider Unavailab le Source Comments The information that you have received may contain highly confidential and/or federally protected health information. This information has been disclosed to you from records protected by [facility]. The law prohibits you from making [...] please contact the sender immediately.[facility] ([facility]) Encounter Details Date Type Department Care Team (Late st Contact Info) Description 01/16/2017 Historical Note [facility]G Testt System Devyn Vásquez MD [address] [place] [address] [phone] Social History Tobacco Use Types Packs/Day Years [...] LEATHA CARRILLO - [facility] [address] [facility] [address] [place] [phone] Brenda Clay MD [address] [facility] [address] [place] [address] 04/15/2026 10:00 AM EDT Office Visit LEATHA [facility] at [facility] + [facility] [address] [facility] [address] [place] [address] Sena Dominguez PA [address] [facility] [place] [address] documented as of this encounter Visit Diagnoses Not on filedocumented in this encounter Care Teams Technical Account Representative Relationship Specialty Start Date End Date Meme Steel MD [address] [place] [address] 105 [place] [address] PCP - General Pediatrics 06/05/18 04/25/22 No Pcp, Pcp PCP - General 06/08/22 07/19/22 Guadalupe Mcbride MD PCP - General Family Medicine 07/20/22 11/01/23 Sena Dominguez PA [address] [place] [address] [place] [address] PCP - BRADY Physician Nanotechnologist 11/02/23 Levy Barry MD [address] [place] [address] [place] [address] PCP - General Family Medicine 12/20/23 documented as of this encounter
--- OUTSIDE RECORDS SUMMARY | 2025-07-26 15:24 | XMS_ITS | Encounter Summary ---
Author Organization [facility] work ([facility]) Address [address] [place] [address] Care Team Providers Care Histotechnologist Supervisor Name Role Phone Meme Steel MD Primary Care Provider [phone] Pcp, Pcp Primary Care Provider Unavailabl Guadalupe Bardales MD Primary Care Provider [phone] Sena Dominguez Unavailable [phone] Levy Barry MD Primary Care Provider Unavailab le Source Comments The information that you have received may contain highly confidential and/or federally protected health information. This information has been disclosed to you from records protected by [facility]. The law prohibits you from [...] contact the sender immediately.[facility] ([facility]) Encounter Details Date Type Department Care Team (Late st Contact Info) Description 05/12/2005 Historical Note [facility]G Insignia Technologies System Devyn Vásquez MD [address] [place] [address] [phone] Social History Tobacco Use Types Packs/Day Years [...] AM EST Office Visit LEATHA CARRILLO - [facility] [address] [facility] [address] [place] [phone] Brenda Clay MD [address] [facility] [address] [place] [address] 04/15/2026 10:00 AM EDT Office Visit LEATHA [facility] at [facility] + [facility] [address] [facility] [address] [place] [address] Sena Dominguez PA [address] [facility] [place] [address] documented as of this encounter Visit Diagnoses Not on filedocumented in this encounter Care Teams Histotechnologist Supervisor Relationship Specialty Start Date End Date Meme Steel MD [address] [place] [address] 105 [place] [address] PCP - General Pediatrics 06/05/18 04/25/22 No Pcp, Pcp PCP - General 06/08/22 07/19/22 Guadalupe Mcbride MD PCP - General Family Medicine 07/20/22 11/01/23 Sena Dominguez PA [address] [place] [address] [place] [address] PCP - BRADY Physician Artist Relationship Manager 11/02/23 Levy Barry MD [address] [place] [address] [place] [address] PCP - General Family Medicine 12/20/23 documented as of this encounter
--- OUTSIDE RECORDS SUMMARY | 2025-07-26 15:24 | XMS_ITS | Encounter Summary ---
Author Organization [facility] work ([facility]) Address [address] [place] [address] Care Team Providers Care Help Desk Specialist Name Role Phone Meme Steel MD Primary Care Provider [phone] Pcp, Pcp Primary Care Provider Unavailabl Guadalupe Bardales MD Primary Care Provider [phone] Sena Dominguez Unavailable [phone] Levy Barry MD Primary Care Provider Unavailab le Source Comments The information that you have received may contain highly confidential and/or federally protected health information. This information has been disclosed to you from records protected by [facility]. The law prohibits you [...] error, please contact the sender immediately.[facility] ([facility]) Encounter Details Date Type Department Care Team (Late st Contact Info) Description 06/30/2005 Historical Note SVMG TheFormTool System Devyn Vásquez MD [address] [place] [address] [phone] Social History Tobacco Use Types Packs/Day Years [...] LEATHA CARRILLO - [facility] [address] [facility] [address] [place] [phone] Brenda Clay MD [address] [facility] [address] [place] [address] 04/15/2026 10:00 AM EDT Office Visit LEATHA [facility] at [facility] + [facility] [address] [facility] [address] [place] [address] Sena Dominguez PA [address] [facility] [place] [address] documented as of this encounter Visit Diagnoses Not on filedocumented in this encounter Care Teams Help Desk Specialist Relationship Specialty Start Date End Date Meme Steel MD [address] [place] [address] 105 [place] [address] PCP - General Pediatrics 06/05/18 04/25/22 No Pcp, Pcp PCP - General 06/08/22 07/19/22 Guadalupe Mcbride MD PCP - General Family Medicine 07/20/22 11/01/23 Sena Dominguez PA [address] [place] [address] [place] [address] PCP - BRADY Physician Logging Superintendent 11/02/23 Levy Barry MD [address] [place] [address] [place] [address] PCP - General Family Medicine 12/20/23 documented as of this encounter
--- OUTSIDE RECORDS SUMMARY | 2025-07-26 15:24 | XMS_ITS | Encounter Summary ---
Author Organization [facility] work ([facility]) Address [address] [place] [address] Care Team Providers Care Armored Car Messenger Name Role Phone Meme Steel MD Primary Care Provider [phone] No Pcp, Pcp Primary Care Provider Unavailabl Guadalupe Bardales MD Primary Care Provider [phone] Sena Dominguez Unavailable [phone] Levy Barry MD Primary Care Provider Unavailab le Source Comments The information that you have received may contain highly confidential and/or federally protected health information. This information has been disclosed to you from records protected by [facility]. The law prohibits you from [...] error, please contact the sender immediately.[facility] ([facility]) Encounter Details Date Type Department Care Team (Late st Contact Info) Description 06/30/2005 Historical Note SVMG Runteq System Devyn Vásquez MD [address] [place] [address] [phone] Social History Tobacco Use Types Packs/Day Years [...] AM EST Office Visit LEATHA CARRILLO - [facility] [address] [facility] [address] [place] [phone] Brenda Clay MD [address] [facility] [address] [place] [address] 04/15/2026 10:00 AM EDT Office Visit LEATHA [facility] at [facility] + [facility] [address] [facility] [address] [place] [address] Sena Dominguez PA [address] [facility] [place] [address] documented as of this encounter Visit Diagnoses Not on filedocumented in this encounter Care Teams Armored Car Messenger Relationship Specialty Start Date End Date Meme Steel MD [address] [place] [address] 105 [place] [address] PCP - General Pediatrics 06/05/18 04/25/22 No Pcp, Pcp PCP - General 06/08/22 07/19/22 Guadalupe Mcbride MD PCP - General Family Medicine 07/20/22 11/01/23 Sena Dominguez PA [address] [place] [address] [place] [address] PCP - BRADY Physician Lawn Caretaker 11/02/23 Levy Barry MD [address] [place] [address] [place] [address] PCP - General Family Medicine 12/20/23 documented as of this encounter
--- OUTSIDE RECORDS SUMMARY | 2025-07-26 15:24 | XMS_ITS | Encounter Summary ---
Author Organization [facility] work ([facility]) Address [address] [place] [address] Care Team Providers Care Zinc Plater Name Role Phone Meme Steel MD Primary Care Provider [phone] Pcp, Pcp Primary Care Provider Unavailabl Guadalupe Bardales MD Primary Care Provider [phone] Sena Dominguez Unavailable [phone] Levy Barry MD Primary Care Provider Unavailab le Source Comments The information that you have received may contain highly confidential and/or federally protected health information. This information has been disclosed to you from records protected by [facility]. The law prohibits you from making [...] contact the sender immediately.[facility] ([facility]) Encounter Details Date Type Department Care Team (Late st Contact Info) Description 08/13/2009 Historical Note [facility] Couchsurfing System Devyn Vásquez MD [address] [place] [address] [phone] Social History Tobacco Use Types Packs/Day Years [...] - [facility] at [facility] [address] [facility] [address] [place] [phone] Brenda Clay MD [address] [facility] [address] [place] [address] 04/15/2026 10:00 AM EDT Office Visit [facility] + [facility] [address] [facility] [address] [place] [address] Sena Dominguez PA [address] [facility] [place] [address] documented as of this encounter Visit Diagnoses Not on filedocumented in this encounter Care Teams Zinc Plater Relationship Specialty Start Date End Date Meme Steel MD [address] [place] [address] [place] [address] PCP - General Pediatrics 06/05/18 04/25/22 No Pcp, Pcp PCP - General 06/08/22 07/19/22 Guadalupe Mcbride MD PCP - General Family Medicine 07/20/22 11/01/23 Sena Dominguez PA [address] [place] [address] [place] [address] PCP - BRADY Physician Cuff Setter 11/02/23 Levy Barry MD [address] [place] [address] [place] [address] PCP - General Family Medicine 12/20/23 documented as of this encounter
--- OUTSIDE RECORDS SUMMARY | 2025-07-26 15:24 | XMS_ITS | Encounter Summary ---
Author Organization [facility] work ([facility]) Address [address] [place] [address] Care Team Providers Care Campus Supervisor Name Role Phone Meme Steel MD Primary Care Provider [phone] Pcp, Pcp Primary Care Provider Unavailabl Guadalupe Bardales MD Primary Care Provider Sena Dominguez Unavailable [phone] Levy Barry MD Primary Care Provider Unavailab le Source Comments The information that you have received may contain highly confidential and/or federally protected health information. This information has been disclosed to you from records protected by [employer] [facility]. The law prohibits you from making [...] in error, please contact the sender immediately.[facility] ([facility]) Encounter Details Date Type Department Care Team (Late st Contact Info) Description 03/09/2016 Historical Note [facility] Pacific Ethanol System Devyn Vásquez MD [address] [place] [address] [phone] Social History Tobacco Use Types Packs/Day Years [...] EST Office Visit LEATHA CARRILLO - [facility] [address] [facility] [address] [place] [phone] Brenda Clay MD [address] [facility] [address] [place] [phone] 04/15/2026 10:00 AM EDT Office Visit [facility] at [facility] + [facility] [address] [facility] [address] [place] [address] Sena Dominguez PA [address] [facility] [place] [address] documented as of this encounter Visit Diagnoses Not on filedocumented in this encounter Care Teams Campus Supervisor Relationship Specialty Start Date End Date Meme Steel MD [address] [place] [address] 105 [place] [address] PCP - General Pediatrics 06/05/18 04/25/22 No Pcp, Pcp PCP - General 06/08/22 07/19/22 Guadalupe Mcbride MD PCP - General Family Medicine 07/20/22 11/01/23 Sena Dominguez PA [address] [place] [address] [place] [address] PCP - BRADY Physician Sustainable Agriculture Faculty 11/02/23 Levy Barry MD [address] [place] [address] [place] [address] PCP - General Family Medicine 12/20/23 documented as of this encounter
--- OUTSIDE RECORDS SUMMARY | 2025-07-26 15:24 | XMS_ITS | Encounter Summary ---
Author Organization [facility] work ([facility]) Address [address] [place] [address] Care Team Providers Care Clinical Information Systems Director Name Role Phone Meme Steel MD Primary Care Provider [phone] Pcp, Pcp Primary Care Provider Unavailabl Guadalupe Bardales MD Primary Care Provider [phone] Sena Dominguez Unavailable [phone] Levy Barry MD Primary Care Provider Unavailab le Source Comments The information that you have received may contain highly confidential and/or federally protected health information. This information has been disclosed to you from records protected by [facility]. The law prohibits you from [...] contact the sender immediately.[facility] ([facility]) Encounter Details Date Type Department Care Team (Late st Contact Info) Description 08/10/2009 Historical Note [facility] Media[employer] System Devyn Vásquez MD [address] [place] [address] [phone] Social History Tobacco Use Types Packs/Day Years [...] LEATHA CARRILLO - [facility] [address] [facility] [address] [place] [phone] Brenda Clay MD [address] [facility] [address] [place] [address] 04/15/2026 10:00 AM EDT Office Visit [facility] [address] [facility] [address] [place] [address] Sena Dominguez PA [address] [facility] [place] [address] documented as of this encounter Visit Diagnoses Not on filedocumented in this encounter Care Teams Clinical Information Systems Director Relationship Specialty Start Date End Date Meme Steel MD [address] [place] [address] 105 [place] [address] PCP - General Pediatrics 06/05/18 04/25/22 No Pcp, Pcp PCP - General 06/08/22 07/19/22 Guadalupe Mcbride MD PCP - General Family Medicine 07/20/22 11/01/23 Sena Dominguez PA [address] [place] [address] [place] [address] PCP - BRADY Physician Orthopaedic General 11/02/23 Levy Barry MD [address] [place] [address] [place] [address] PCP - General Family Medicine 12/20/23 documented as of this encounter
--- OUTSIDE RECORDS SUMMARY | 2025-07-26 15:24 | XMS_ITS | Encounter Summary ---
Author Organization [facility] work ([facility]) Address [address] [place] [address] Care Team Providers Care Audiovisual Production Specialist Name Role Phone Mmee Steel MD Primary Care Provider [phone] Pcp, Pcp Primary Care Provider Unavailabl Guadalupe Bardales MD Primary Care Provider [phone] Sena Dominguez Unavailable [phone] Levy Barry MD Primary Care Provider Unavailab le Source Comments The information that you have received may contain highly confidential and/or federally protected health information. This information has been disclosed to you from records protected by [facility]. The law prohibits you from [...] contact the sender immediately.[facility] ([facility]) Encounter Details Date Type Department Care Team (Late st Contact Info) Description 02/06/2010 Historical Note [facility] Poshly System Devyn Vásquez MD [address] [place] [address] [phone] Social History Tobacco Use Types Packs/Day Years [...] AM EST Office Visit LEATHA CARRILLO - [facility] [address] [facility] [address] [place] [phone] Brenda Clay MD [address] [facility] [address] [place] [phone] 04/15/2026 10:00 AM EDT Office Visit [facility] + [facility] [address] [facility] [address] [place] [address] Sena Dominguez PA [address] [facility] [place] [address] documented as of this encounter Visit Diagnoses Not on filedocumented in this encounter Care Teams Audiovisual Production Specialist Relationship Specialty Start Date End Date Meme Steel MD [address] [place] [address] 105 [place] [address] PCP - General Pediatrics 06/05/18 04/25/22 No Pcp, Pcp PCP - General 06/08/22 07/19/22 Guadalupe Mcbride MD PCP - General Family Medicine 07/20/22 11/01/23 Sena Dominguez PA [address] [place] [address] [place] [address] PCP - BRADY Physician Senior Military Analyst 11/02/23 Levy Barry MD [address] [place] [address] [place] [address] PCP - General Family Medicine 12/20/23 documented as of this encounter
--- OUTSIDE RECORDS SUMMARY | 2025-07-26 15:24 | XMS_ITS | Encounter Summary ---
Author Organization [facility] work ([facility]) Address [address] [place] [address] Care Team Providers Care Eye Care Professional Name Role Phone Meme Steel MD Primary Care Provider [phone] Pcp, Pcp Primary Care Provider Unavailabl Guadalupe Bardales MD Primary Care Provider [phone] Sena Dominguez Unavailable [phone] Levy Barry MD Primary Care Provider Unavailab le Source Comments The information that you have received may contain highly confidential and/or federally protected health information. This information has been disclosed to you from records protected by [facility]. The law prohibits you [...] the sender immediately.[facility] ([facility]) Encounter Details Date Type Department Care Team (Late st Contact Info) Description 05/18/2011 Historical Note [facility] [employer] System Devyn Vásquez MD [address] [place] [address] [phone] Social History Tobacco Use Types Packs/Day Years [...] Visit LEATHA CARRILLO - [facility] [address] [facility] [address] [place] [phone] Brenda Clay MD [address] [facility] [address] [place] [address] 04/15/2026 10:00 AM EDT Office Visit [facility] at [facility] + [facility] [address] [facility] [address] [place] [address] Sena Dominguez PA [address] [facility] [place] [address] documented as of this encounter Visit Diagnoses Not on filedocumented in this encounter Care Teams Eye Care Professional Relationship Specialty Start Date End Date Meme Steel MD [address] [place] [address] 105 [place] [address] PCP - General Pediatrics 06/05/18 04/25/22 No Pcp, Pcp PCP - General 06/08/22 07/19/22 Guadalupe Mcbride MD PCP - General Family Medicine 07/20/22 11/01/23 Sena Dominguez PA [address] [place] [address] [place] [address] PCP - BRADY Physician Transport Analyst 11/02/23 Levy Barry MD [address] [place] [address] [place] [address] PCP - General Family Medicine 12/20/23 documented as of this encounter
--- OUTSIDE RECORDS SUMMARY | 2025-07-26 15:24 | XMS_ITS | Encounter Summary ---
Author Organization [facility] work ([facility]) Address [address] [place] [address] Care Team Providers Care Fundraiser Name Role Phone Meme Steel MD Primary Care Provider No Pcp, Pcp Primary Care Provider Unavailabl Guadalupe Bardales MD Primary Care Provider Sena Dominguez Unavailable [phone] Levy Barry MD Primary Care Provider Unavailab le Source Comments The information that you have received may contain highly confidential and/or federally protected health information. This information has been disclosed to you from records protected by [employer] [facility]. The law prohibits you from [...] error, please contact the sender immediately.[facility] ([facility]) Encounter Details Date Type Department Care Team (Late st Contact Info) Description 03/29/2016 Historical Note [facility] [employer] System Devyn Vásquez MD [address] [place] [address] [phone] Social History Tobacco Use Types Packs/Day Years [...] Visit LEATHA CARRILLO - [facility] [address] [facility] [address] [place] [phone] Brenda Clay MD [address] [facility] [address] [place] [phone] 04/15/2026 10:00 AM EDT Office Visit [facility] at [facility] [address] [facility] [address] [place] [address] Sena Dominguez PA [address] [facility] [place] [address] documented as of this encounter Visit Diagnoses Not on filedocumented in this encounter Care Teams Fundraiser Relationship Specialty Start Date End Date Meme Steel MD [address] [place] [address] 105 [place] [address] PCP - General Pediatrics 06/05/18 04/25/22 No Pcp, Pcp PCP - General 06/08/22 07/19/22 Guadalupe Mcbride MD PCP - General Family Medicine 07/20/22 11/01/23 Sena Dominguez PA [address] [place] [address] [place] [address] PCP - BRADY Physician Population Geneticist 11/02/23 Levy Barry MD [address] [place] [address] [place] [address] PCP - General Family Medicine 12/20/23 documented as of this encounter
--- OUTSIDE RECORDS SUMMARY | 2025-07-26 15:24 | XMS_ITS | Encounter Summary ---
Author Organization [facility] work ([facility]) Address [address] [facility] [address] [place] [address] Care Team Providers Care Rubber Cutter And Shape Carver Name Role Phone Meme Steel MD Primary Care Provider [phone] Pcp, Pcp Primary Care Provider Unavailabl Guadalupe Bardales MD Primary Care Provider Sena Dominguez Unavailable [phone] Levy Barry MD Primary Care Provider Unavailab le Source Comments The information that you have received may contain highly confidential and/or federally protected health information. This information has been disclosed to you from records protected by [facility]. The law prohibits you from [...] please contact the sender immediately.[facility] ([facility]) Encounter Details Date Type Department Care Team (Late st Contact Info) Description 05/12/2005 Historical Note [facility] LOCK8 System Devyn Vásquez MD [address] [place] [address] [phone] Social History Tobacco Use Types Packs/Day Years [...] LEATHA CARRILLO - [facility] at [facility] [address] [facility] [address] [place] [phone] Brenda Clay MD [address] [facility] [address] [place] [address] 04/15/2026 10:00 AM EDT Office Visit [facility] at [facility] + [facility] [address] [facility] [address] [place] [address] Sena Dominguez PA [address] [facility] [place] [address] documented as of this encounter Visit Diagnoses Not on filedocumented in this encounter Care Teams Rubber Cutter And Shape Carver Relationship Specialty Start Date End Date Meme Steel MD [address] [place] [address] 105 [place] [address] PCP - General Pediatrics 06/05/18 04/25/22 No Pcp, Pcp PCP - General 06/08/22 07/19/22 Guadalupe Mcbride MD PCP - General Family Medicine 07/20/22 11/01/23 Sena Dominguez PA [address] [place] [address] [place] [address] PCP - BRADY Physician Breadman 11/02/23 Levy Barry MD [address] [place] [address] [place] [address] PCP - General Family Medicine 12/20/23 documented as of this encounter
--- OUTSIDE RECORDS SUMMARY | 2025-07-26 15:24 | XMS_ITS | Encounter Summary ---
Author Organization [facility] work ([facility]) Address [address] [place] [address] Care Team Providers Care Engraver Copperplate Name Role Phone Meme Steel MD Primary Care Provider [phone] Pcp, Pcp Primary Care Provider Unavailabl Guadalupe Bardales MD Primary Care Provider [phone] Sena Dominguez Unavailable [phone] Levy Barry MD Primary Care Provider Unavailab le Source Comments The information that you have received may contain highly confidential and/or federally protected health information. This information has been disclosed to you from records protected by [facility]. The law prohibits you from [...] contact the sender immediately.[facility] ([facility]) Encounter Details Date Type Department Care Team (Late st Contact Info) Description 09/10/2009 Historical Note [facility] Th[employer] System Devyn Vásquez MD [address] [place] [address] [phone] Social History Tobacco Use Types Packs/Day Years [...] LEATHA CARRILLO - [facility] [address] [facility] [address] [place] [phone] Brenda Clay MD [address] [facility] [address] [place] [phone] 04/15/2026 10:00 AM EDT Office Visit [facility] at [facility] + [facility] [address] [facility] [address] [place] [address] Sena Dominguez PA [address] [facility] [place] [address] documented as of this encounter Visit Diagnoses Not on filedocumented in this encounter Care Teams Engraver Copperplate Relationship Specialty Start Date End Date Meme Steel MD [address] [place] [address] 105 [place] [address] PCP - General Pediatrics 06/05/18 04/25/22 No Pcp, Pcp PCP - General 06/08/22 07/19/22 Guadalupe Mcbride MD PCP - General Family Medicine 07/20/22 11/01/23 Sena Dominguez PA [address] [place] [address] [place] [address] PCP - BRADY Physician Motor Adjuster 11/02/23 Levy Barry MD [address] [place] [address] [place] [address] PCP - General Family Medicine 12/20/23 documented as of this encounter
--- OUTSIDE RECORDS SUMMARY | 2025-07-26 15:24 | XMS_ITS | Encounter Summary ---
Author Organization [facility] work ([facility]) Address [address] [facility] [address] [place] [address] Care Team Providers Care Speech And Hearing Director Name Role Phone Meme Steel MD Primary Care Provider [phone] No Pcp, Pcp Primary Care Provider Unavailabl Guadalupe Bardales MD Primary Care Provider [phone] Sena Dominguez Unavailable [phone] Levy Barry MD Primary Care Provider Unavailab le Source Comments The information that you have received may contain highly confidential and/or federally protected health information. This information has been disclosed to you from records protected by [facility]. The law prohibits you from making [...] immediately.[facility] ([facility]) Encounter Details Date Type Department Care Team (Late st Contact Info) Description 08/23/2010 Historical Note [facility] [employer] System Devyn Vásquez MD [address] [place] [address] [phone] Social History Tobacco Use Types Packs/Day Years [...] Visit LEATHA CARRILLO - [facility] [address] [facility] [address] [place] [phone] Brenda Clay MD [address] [facility] [address] [place] [address] 04/15/2026 10:00 AM EDT Office Visit [facility]HA [facility] at [facility] + [facility] [address] [facility] [address] [place] [address] Sena Dominguez PA [address] [facility] [place] [address] documented as of this encounter Visit Diagnoses Not on filedocumented in this encounter Care Teams Speech And Hearing Director Relationship Specialty Start Date End Date Meme Steel MD [address] [place] [address] 105 [place] [address] PCP - General Pediatrics 06/05/18 04/25/22 No Pcp, Pcp PCP - General 06/08/22 07/19/22 Guadalupe Mcbride MD PCP - General Family Medicine 07/20/22 11/01/23 Sena Dominguez PA [address] [place] [address] [place] [address] PCP - BRADY Physician Pony Rougher 11/02/23 Levy Barry MD [address] [place] [address] [place] [address] PCP - General Family Medicine 12/20/23 documented as of this encounter
--- OUTSIDE RECORDS SUMMARY | 2025-07-26 15:24 | XMS_ITS | Encounter Summary ---
Author Organization [facility] work ([facility]) Address [address] [facility] [address] [place] [address] Care Team Providers Care Newspaper Library Manager Name Role Phone Meme Steel MD Primary Care Provider [phone] Pcp, Pcp Primary Care Provider Unavailabl Guadalupe Bardales MD Primary Care Provider [phone] Sena Dominguez Unavailable [phone] Levy Barry MD Primary Care Provider Unavailab le Source Comments The information that you have received may contain highly confidential and/or federally protected health information. This information has been disclosed to you from records protected by [facility]. The law prohibits you from making [...] please contact the sender immediately.[facility] ([facility]) Encounter Details Date Type Department Care Team (Late st Contact Info) Description 08/17/2010 Historical Note [facility] Tk20 System Devyn Vásquez MD [address] [place] [address] [phone] Social History Tobacco Use Types Packs/Day Years [...] AM EST Office Visit LEATHA CARRILLO - [facility] [address] [facility] [address] [place] [phone] Brenda Clay MD [address] [facility] [address] [place] [phone] 04/15/2026 10:00 AM EDT Office Visit [facility] at [facility] + [facility] [address] [facility] [address] [place] [address] Sena Dominguez PA [address] [facility] [place] [address] documented as of this encounter Visit Diagnoses Not on filedocumented in this encounter Care Teams Newspaper Library Manager Relationship Specialty Start Date End Date Meme Steel MD [address] [place] [address] 105 [place] [address] PCP - General Pediatrics 06/05/18 04/25/22 No Pcp, Pcp PCP - General 06/08/22 07/19/22 Guadalupe Mcbride MD PCP - General Family Medicine 07/20/22 11/01/23 Sena Dominguez PA [address] [place] [address] [place] [address] PCP - BRADY Physician Car Repairer 11/02/23 Levy Barry MD [address] [place] [address] [place] [address] PCP - General Family Medicine 12/20/23 documented as of this encounter
--- OUTSIDE RECORDS SUMMARY | 2025-07-26 15:24 | XMS_ITS | Encounter Summary ---
Author Organization [facility] work ([facility]) Address [address] [place] [address] Care Team Providers Care Junior Sales Representative Name Role Phone Meme Steel MD Primary Care Provider [phone] Pcp, Pcp Primary Care Provider Unavailabl Guadalupe Bardales MD Primary Care Provider Sena Dominguez Unavailable [phone] Levy Barry MD Primary Care Provider Unavailab le Source Comments The information that you have received may contain highly confidential and/or federally protected health information. This information has been disclosed to you from records protected by [facility]. The law prohibits you [...] sender immediately.[facility] ([facility]) Encounter Details Date Type Department Care Team (Late st Contact Info) Description 08/30/2005 Historical Note [facility] Cull [employer] System Devyn Vásquez MD [address] [place] [address] [phone] Social History Tobacco Use Types Packs/Day Years [...] CARRILLO - [facility] [employer] [address] [facility] [address] [place] [phone] Brenda Clay MD [address] [facility] [address] [place] [address] 04/15/2026 10:00 AM EDT Office Visit [facility] + [facility] [address] [facility] [address] [place] [address] Sena Domniguez PA [address] [facility] [place] [address] documented as of this encounter Visit Diagnoses Not on filedocumented in this encounter Care Teams Junior Sales Representative Relationship Specialty Start Date End Date Meme Steel MD [address] [place] [address] [place] [address] PCP - General Pediatrics 06/05/18 04/25/22 No Pcp, Pcp PCP - General 06/08/22 07/19/22 Guadalupe Mcbride MD PCP - General Family Medicine 07/20/22 11/01/23 Sena Dominguez PA [address] [place] [address] [place] [address] PCP - BRADY Physician Fisher Swordfish 11/02/23 Levy Brary MD [address] [place] [address] [place] [address] PCP - General Family Medicine 12/20/23 documented as of this encounter
--- OUTSIDE RECORDS SUMMARY | 2025-07-26 15:24 | XMS_ITS | Encounter Summary ---
Author Organization [facility] work ([facility]) Address [address] [place] [address] Care Team Providers Care Can Pusher Name Role Phone Meme Steel MD Primary Care Provider [phone] Pcp, Pcp Primary Care Provider Unavailabl Guadalupe Bardales MD Primary Care Provider [phone] Sena Dominguez Unavailable [phone] Levy Barry MD Primary Care Provider Unavailab le Source Comments The information that you have received may contain highly confidential and/or federally protected health information. This information has been disclosed to you from records protected by [facility]. The law prohibits you from making [...] sender immediately.[facility] ([facility]) Encounter Details Date Type Department Care Team (Late st Contact Info) Description 05/31/2005 Historical Note [facility] BrightView Systems System Devyn Vásquez MD [address] [place] [address] [phone] Social History Tobacco Use Types Packs/Day Years [...] LEATHA CARRILLO - [facility] [address] [facility] [address] [place] [phone] Brenda Clay MD [address] [facility] [address] [place] [address] 04/15/2026 10:00 AM EDT Office Visit [facility] [address] [facility] [address] [place] [address] Sena Dominguez PA [address] [facility] [place] [address] documented as of this encounter Visit Diagnoses Not on filedocumented in this encounter Care Teams Can Pusher Relationship Specialty Start Date End Date Meme Steel MD [address] [place] [address] 105 [place] [address] PCP - General Pediatrics 06/05/18 04/25/22 No Pcp, Pcp PCP - General 06/08/22 07/19/22 Guadalupe Mcbride MD PCP - General Family Medicine 07/20/22 11/01/23 Sena Dominguez PA [address] [place] [address] [place] [address] PCP - BRADY Physician Programming Coordinator 11/02/23 Levy Barry MD [address] [place] [address] [place] [address] PCP - General Family Medicine 12/20/23 documented as of this encounter
--- OUTSIDE RECORDS SUMMARY | 2025-07-26 15:24 | XMS_ITS | Encounter Summary ---
Author Organization [facility] work ([facility]) Address [address] [place] [address] Care Team Providers Care Tack Puller Machine Name Role Phone Meme Steel MD Primary Care Provider [phone] Pcp, Pcp Primary Care Provider Unavailabl Guadalupe Bardales MD Primary Care Provider [phone] Sena Dominguez Unavailable [phone] Levy Barry MD Primary Care Provider Unavailab le Source Comments The information that you have received may contain highly confidential and/or federally protected health information. This information has been disclosed to you from records protected by [facility]. The law prohibits you from making any [...] error, please contact the sender immediately.[facility] ([facility]) Encounter Details Date Type Department Care Team (Late st Contact Info) Description 09/10/2009 Historical Note [facility] [employer] System Devyn Vásquez MD [address] [place] [address] [phone] Social History Tobacco Use Types Packs/Day Years [...] CARRILLO - [facility] [address] [facility] [address] [place] [phone] Brenda Clay MD [address] [facility] [address] [place] [address] 04/15/2026 10:00 AM EDT Office Visit [facility]HA [facility] at [facility] + [facility] [address] [facility] [address] [place] [address] Sena Dominguez PA [address] [facility] [place] [address] documented as of this encounter Visit Diagnoses Not on filedocumented in this encounter Care Teams Tack Puller Machine Relationship Specialty Start Date End Date Meme Steel MD [address] [place] [address] 105 [place] [address] PCP - General Pediatrics 06/05/18 04/25/22 No Pcp, Pcp PCP - General 06/08/22 07/19/22 Guadalupe Mcbride MD PCP - General Family Medicine 07/20/22 11/01/23 Sena Dominguez PA [address] [place] [address] [place] [address] PCP - BRADY Physician Crop Or Livestock Tenant Farmer 11/02/23 Levy Barry MD [address] [place] [address] [place] [address] PCP - General Family Medicine 12/20/23 documented as of this encounter
--- OUTSIDE RECORDS SUMMARY | 2025-07-26 15:24 | XMS_ITS | Encounter Summary ---
Author Organization [facility] work ([facility] Address [address] [place] [address] Care Team Providers Care Software Installation Engineer Name Role Phone Meme Steel MD Primary Care Provider [phone] Pcp, Pcp Primary Care Provider Unavailabl Guadalupe Bardales MD Primary Care Provider [phone] Sena Dominguez Unavailable Levy Barry MD Primary Care Provider Unavailab le Source Comments The information that you have received may contain highly confidential and/or federally protected health information. This information has been disclosed to you from records protected by [facility]. The law prohibits you from [...] information in error, please contact the sender immediately.[facility] ([facility] Encounter Details Date Type Department Care Team (Late st Contact Info) Description 11/09/2005 Historical Note [facility] Mi-Pay System Devyn Vásquez MD [address] [place] [address] [phone] Social History Tobacco Use Types Packs/Day Years [...] CARRILLO - [facility] [address] [facility] [address] [place] [phone] Brenda Clay MD [address] [facility] [address] [place] [address] 04/15/2026 10:00 AM EDT Office Visit LEATHA [facility] at [facility] + [facility] [address] [facility] [facility] [address] [place] [address] Sena Dominguez PA [address] [facility] [place] [address] documented as of this encounter Visit Diagnoses Not on filedocumented in this encounter Care Teams Software Installation Engineer Relationship Specialty Start Date End Date Meme Steel MD [address] [place] [address] 105 [place] [address] PCP - General Pediatrics 06/05/18 04/25/22 No Pcp, Pcp PCP - General 06/08/22 07/19/22 Guadalupe Mcbride MD PCP - General Family Medicine 07/20/22 11/01/23 Sena Dominguez PA [address] [place] [address] [place] [address] PCP - BRADY Physician Equipment Specialist 11/02/23 Levy Barry MD [address] [place] [address] [place] [address] PCP - General Family Medicine 12/20/23 documented as of this encounter
--- OUTSIDE RECORDS SUMMARY | 2025-07-26 15:24 | XMS_ITS | Encounter Summary ---
Author Organization [facility] work ([facility]) Address [address] [place] [address] Care Team Providers Care Receivable Executive Name Role Phone Meme Steel MD Primary Care Provider [phone] Pcp, Pcp Primary Care Provider Unavailabl Guadalupe Bardales MD Primary Care Provider [phone] Sena Dominguez Unavailable [phone] Levy Barry MD Primary Care Provider Unavailab le Source Comments The information that you have received may contain highly confidential and/or federally protected health information. This information has been disclosed to you from records protected by [facility]. The law prohibits you [...] contact the sender immediately.[facility] ([facility]) Encounter Details Date Type Department Care Team (Late st Contact Info) Description 07/13/2016 Historical Note [facility] [employer]userv System Devyn Vásquez MD [address] [place] [address] [phone] Social History Tobacco Use Types Packs/Day Years [...] LEATHA CARRILLO - [facility] [address] [facility] [address] [place] [phone] Brenda Clay MD [address] [facility] [address] [place] [address] 04/15/2026 10:00 AM EDT Office Visit [facility] at [facility] + [facility] [address] [place] [address] Sena Dominguez PA [address] [facility] [place] [address] documented as of this encounter Visit Diagnoses Not on filedocumented in this encounter Care Teams Receivable Executive Relationship Specialty Start Date End Date Meme Steel MD [address] [place] [address] 105 [place] [address] PCP - General Pediatrics 06/05/18 04/25/22 No Pcp, Pcp PCP - General 06/08/22 07/19/22 Guadalupe Mcbride MD PCP - General Family Medicine 07/20/22 11/01/23 Sena Dominguez PA [address] [place] [address] [place] [address] PCP - BRADY Physician Motor Scooter Mechanic 11/02/23 Levy Barry MD [address] [place] [address] [place] [address] PCP - General Family Medicine 12/20/23 documented as of this encounter
--- OUTSIDE RECORDS SUMMARY | 2025-07-26 15:24 | XMS_ITS | Encounter Summary ---
Author Organization [facility] work ([facility]) Address [address] [place] [address] Care Team Providers Care Ic Designer Gate Arrays Name Role Phone Meme Steel MD Primary Care Provider [phone] Pcp, Pcp Primary Care Provider Unavailabl Guadalupe Bardales MD Primary Care Provider [phone] Sena Dominguez Unavailable [phone] Levy Barry MD Primary Care Provider Unavailab le Source Comments The information that you have received may contain highly confidential and/or federally protected health information. This information has been disclosed to you from records protected by [facility]. The law prohibits you from making [...] error, please contact the sender immediately.[facility] ([facility]) Encounter Details Date Type Department Care Team (Late st Contact Info) Description 05/30/2005 Historical Note [facility] FABPulous System Devyn Vásquez MD [address] [place] [address] [phone] Social History Tobacco Use Types Packs/Day Years [...] - [facility] [address] [facility] [address] [place] [phone] Brenda Clay MD [address] [facility] [address] [place] [address] 04/15/2026 10:00 AM EDT Office Visit LEATHA [facility] at [facility] + [facility] [address] [facility] [address] [place] [address] Sena Dominguez PA [address] [facility] [place] [address] documented as of this encounter Visit Diagnoses Not on filedocumented in this encounter Care Teams Ic Designer Gate Arrays Relationship Specialty Start Date End Date Meme Steel MD [address] [place] [address] 105 [place] [address] PCP - General Pediatrics 06/05/18 04/25/22 No Pcp, Pcp PCP - General 06/08/22 07/19/22 Guadalupe Mcbride MD PCP - General Family Medicine 07/20/22 11/01/23 Sena Dominguez PA [address] [place] [address] [place] [address] PCP - BRADY Physician Diver Helper 11/02/23 Levy Barry MD [address] [place] [address] [place] [address] PCP - General Family Medicine 12/20/23 documented as of this encounter
--- OUTSIDE RECORDS SUMMARY | 2025-07-26 15:24 | XMS_ITS | Encounter Summary ---
Author Organization [facility] work ([facility]) Address [address] [place] [address] Care Team Providers Care Car Worker Helper Name Role Phone Meme Steel MD Primary Care Provider [phone] Pcp, Pcp Primary Care Provider Unavailabl Guadalupe Bardales MD Primary Care Provider [phone] Sena Dominguez Unavailable [phone] Levy Barry MD Primary Care Provider Unavailab le Source Comments The information that you have received may contain highly confidential and/or federally protected health information. This information has been disclosed to you from records protected by [facility]. The law prohibits you from making [...] contact the sender immediately.[facility] ([facility]) Encounter Details Date Type Department Care Team (Late st Contact Info) Description 08/07/2009 Historical Note [facility] YouRenew System Devyn Vásquez MD [address] [place] [address] [phone] Social History Tobacco Use Types Packs/Day Years [...] LEATHA CARRILLO - [facility] [address] [facility] [address] [place] [phone] Brenda Clay MD [address] [facility] [address] [place] [address] 04/15/2026 10:00 AM EDT Office Visit [facility]HA [facility] at [facility] + [facility] [address] [facility] [address] [place] [address] Sena Dominguez PA [address] [facility] [place] [address] documented as of this encounter Visit Diagnoses Not on filedocumented in this encounter Care Teams Car Worker Helper Relationship Specialty Start Date End Date Meme Steel MD [address] [place] [address] 105 [place] [address] PCP - General Pediatrics 06/05/18 04/25/22 No Pcp, Pcp PCP - General 06/08/22 07/19/22 Guadalupe Mcbride MD PCP - General Family Medicine 07/20/22 11/01/23 Sena Dominguez PA [address] [place] [address] [place] [address] PCP - BRADY Physician Entertainment Reporter 11/02/23 Levy Barry MD [address] [place] [address] [place] [address] PCP - General Family Medicine 12/20/23 documented as of this encounter
--- OUTSIDE RECORDS SUMMARY | 2025-07-26 15:24 | XMS_ITS | Encounter Summary ---
Author Organization [facility] work ([facility]) Address [address] [place] [address] Care Team Providers Care Restaurant Crew Person Name Role Phone Meme Steel MD Primary Care Provider [phone] Pcp, Pcp Primary Care Provider Unavailabl Guadalupe Bardales MD Primary Care Provider [phone] Sena Dominguez Unavailable [phone] Levy Barry MD Primary Care Provider Unavailab le Source Comments The information that you have received may contain highly confidential and/or federally protected health information. This information has been disclosed to you from records protected by [facility]. The law prohibits you [...] information in error, please contact the sender immediately.[facility] ([facility]) Encounter Details Date Type Department Care Team (Late st Contact Info) Description 11/10/2005 Historical Note [facility] Vinylmint System Devyn Vásquez MD [address] [place] [address] [phone] Social History Tobacco Use Types Packs/Day Years [...] EST Office Visit LEATHA CARRILLO - [facility] [address] [facility] [address] [place] [phone] Brenda Clay MD [address] [facility] [address] [place] [address] 04/15/2026 10:00 AM EDT Office Visit LEATHA [facility] at [facility] [address] [facility] [address] [place] [address] Sena Dominguez PA [address] [facility] [place] [address] documented as of this encounter Visit Diagnoses Not on filedocumented in this encounter Care Teams Restaurant Crew Person Relationship Specialty Start Date End Date Meme Steel MD [address] [place] [address] 105 [place] [address] PCP - General Pediatrics 06/05/18 04/25/22 No Pcp, Pcp PCP - General 06/08/22 07/19/22 Guadalupe Mcbride MD PCP - General Family Medicine 07/20/22 11/01/23 Sena Dominguez PA [address] [place] [address] [place] [address] PCP - BRADY Physician Manager Of Learning 11/02/23 Levy Barry MD [address] [place] [address] [place] [address] PCP - General Family Medicine 12/20/23 documented as of this encounter
--- OUTSIDE RECORDS SUMMARY | 2025-07-26 15:24 | XMS_ITS | Encounter Summary ---
Author Organization [facility] work ([facility]) Address [address] [place] [address] Care Team Providers Care Bolt Loader Name Role Phone Meme Steel MD Primary Care Provider [phone] Pcp, Pcp Primary Care Provider Unavailabl Guadalupe Bardales MD Primary Care Provider [phone] Sena Dominguez Unavailable [phone] Levy Barry MD Primary Care Provider Unavailab le Source Comments The information that you have received may contain highly confidential and/or federally protected health information. This information has been disclosed to you from records protected by [facility]. The law prohibits you from making any [...] please contact the sender immediately.[facility] ([facility]) Encounter Details Date Type Department Care Team (Late st Contact Info) Description 03/21/2016 Historical Note [facility] Devyn Vásquez MD [address] [place] [address] [phone] Social History Tobacco Use Types Packs/Day Years [...] EST Office Visit LEATHA CARRILLO - [facility] [address] [facility] [address] [place] [phone] Brenda Clay MD [address] [facility] [address] [place] [address] 04/15/2026 10:00 AM EDT Office Visit LE[facility]HA [facility] [address] [facility] [address] [place] [address] Sena Dominguez PA [address] [facility] [place] [address] documented as of this encounter Visit Diagnoses Not on filedocumented in this encounter Care Teams Bolt Loader Relationship Specialty Start Date End Date Meme Steel MD [address] [place] [address] 105 [place] [address] PCP - General Pediatrics 06/05/18 04/25/22 No Pcp, Pcp PCP - General 06/08/22 07/19/22 Gudaalupe Mcbride MD PCP - General Family Medicine 07/20/22 11/01/23 Sena Dominguez PA [address] [place] [address] [place] [address] PCP - BRADY Physician Product Distribution Specialist 11/02/23 Levy Barry MD [address] [place] [address] [place] [address] PCP - General Family Medicine 12/20/23 documented as of this encounter
--- OUTSIDE RECORDS SUMMARY | 2025-07-26 15:24 | XMS_ITS | Encounter Summary ---
Author Organization [facility] work ([facility]) Address [address] [place] [address] Care Team Providers Care Sulfur Burner Name Role Phone Meme Steel MD Primary Care Provider [phone] Pcp, Pcp Primary Care Provider Unavailabl Guadalupe Bardales MD Primary Care Provider Sena Dominguez Unavailable [phone] Levy Barry MD Primary Care Provider Unavailab le Source Comments The information that you have received may contain highly confidential and/or federally protected health information. This information has been disclosed to you from records protected by [facility]. The law prohibits you [...] information in error, please contact the sender immediately.[facility] ([facility]) Encounter Details Date Type Department Care Team (Late st Contact Info) Description 03/21/2016 Historical Note [facility] Liebo System Devyn Vásquez MD [address] [place] [address] [phone] Social History Tobacco Use Types Packs/Day Years [...] Visit LEATHA CARRILLO - [facility] [address] [facility] [address] [place] [phone] Brenda Clay MD [address] [facility] [address] [place] [address] 04/15/2026 10:00 AM EDT Office Visit LEATHA [facility] at [facility] + [facility] [address] [facility] [address] [place] [address] Sena Dominguez PA [address] [facility] [place] [address] documented as of this encounter Visit Diagnoses Not on filedocumented in this encounter Care Teams Sulfur Burner Relationship Specialty Start Date End Date Meme Steel MD [address] [place] [address] 105 [place] [address] PCP - General Pediatrics 06/05/18 04/25/22 No Pcp, Pcp PCP - General 06/08/22 07/19/22 Guadalupe Mcbride MD PCP - General Family Medicine 07/20/22 11/01/23 Sena Dominguez PA [address] [place] [address] [place] [address] PCP - BRADY Physician Bench Boring Machine Operator 11/02/23 Levy Barry MD [address] [place] [address] [place] [address] PCP - General Family Medicine 12/20/23 documented as of this encounter
--- OUTSIDE RECORDS SUMMARY | 2025-07-26 15:24 | XMS_ITS | Encounter Summary ---
Author Organization [facility] work ([facility]) Address [address] [place] [address] Care Team Providers Care Claims Associate Name Role Phone Meme Steel MD Primary Care Provider [phone] No Pcp, Pcp Primary Care Provider Unavailabl Guadalupe Bardales MD Primary Care Provider [phone] Sena Dominguez Unavailable [phone] Levy Barry MD Primary Care Provider Unavailab le Source Comments The information that you have received may contain highly confidential and/or federally protected health information. This information has been disclosed to you from records protected by [facility]. The law prohibits you from making [...] error, please contact the sender immediately.[facility] ([facility]) Encounter Details Date Type Department Care Team (Late st Contact Info) Description 06/02/2005 Historical Note [facility] [employer] System Devyn Vásquez MD [address] [place] [address] [phone] Social History Tobacco Use Types Packs/Day Years [...] LEATHA CARRILLO - [facility] [address] [facility] [address] [place] [phone] Brenda Clay MD [address] [facility] [address] [place] [address] 04/15/2026 10:00 AM EDT Office Visit [facility] + [facility] [address] [facility] [address] [place] [address] Sena Dominguez PA [address] [facility] [place] [address] documented as of this encounter Visit Diagnoses Not on filedocumented in this encounter Care Teams Claims Associate Relationship Specialty Start Date End Date Meme Steel MD [address] [place] [address] 105 [place] [address] PCP - General Pediatrics 06/05/18 04/25/22 No Pcp, Pcp PCP - General 06/08/22 07/19/22 Guadalupe Mcbride MD PCP - General Family Medicine 07/20/22 11/01/23 Sena Dominguez PA [address] [place] [address] [place] [address] PCP - BRADY Physician Chicken Picker 11/02/23 Levy Barry MD [address] [place] [address] [place] [address] PCP - General Family Medicine 12/20/23 documented as of this encounter
--- OUTSIDE RECORDS SUMMARY | 2025-07-26 15:24 | XMS_ITS | Encounter Summary ---
Author Organization [facility] work ([facility]) Address [address] [place] [address] Care Team Providers Care Blower Insulator Name Role Phone Meme Steel MD Primary Care Provider [phone] No Pcp, Pcp Primary Care Provider Unavailabl Guadalupe Bardales MD Primary Care Provider [phone] Sena Dominguez Unavailable [phone] Levy Barry MD Primary Care Provider Unavailab le Source Comments The information that you have received may contain highly confidential and/or federally protected health information. This information has been disclosed to you from records protected by [facility]. The law prohibits you [...] error, please contact the sender immediately.[facility] ([facility]) Encounter Details Date Type Department Care Team (Late st Contact Info) Description 10/27/2016 Historical Note [facility] [employer] System Devyn Vásquez MD [address] [place] [address] [phone] Social History Tobacco Use Types Packs/Day Years [...] LEATHA CARRILLO - [facility] [address] [facility] [address] [place] [phone] Brenda Clay MD [address] [facility] [address] [place] [address] 04/15/2026 10:00 AM EDT Office Visit [facility] [address] [facility] [address] [place] [address] Sena Dominguez PA [address] [facility] [place] [address] documented as of this encounter Visit Diagnoses Not on filedocumented in this encounter Care Teams Blower Insulator Relationship Specialty Start Date End Date Meme Steel MD [address] [place] [address] [place] [address] PCP - General Pediatrics 06/05/18 04/25/22 No Pcp, Pcp PCP - General 06/08/22 07/19/22 Guadalupe Mcbride MD PCP - General Family Medicine 07/20/22 11/01/23 Sena Dominguez PA [address] [place] [address] [place] [address] PCP - BRADY Physician Bulk Driver 11/02/23 Levy Barry MD [address] [place] [address] [place] [address] PCP - General Family Medicine 12/20/23 documented as of this encounter
--- OUTSIDE RECORDS SUMMARY | 2025-07-26 15:24 | XMS_ITS | Encounter Summary ---
Author Organization [facility] work ([facility]) Address [address] [place] [address] Care Team Providers Care Political Worker Name Role Phone Meme Steel MD Primary Care Provider [phone] Pcp, Pcp Primary Care Provider Unavailabl Guadalupe Bardales MD Primary Care Provider [phone] Sena Dominguez Unavailable Levy Barry MD Primary Care Provider Unavailab le Source Comments The information that you have received may contain highly confidential and/or federally protected health information. This information has been disclosed to you from records protected by [employer] [facility]. The law prohibits you from [...] the sender immediately.[facility] ([facility]) Encounter Details Date Type Department Care Team (Late st Contact Info) Description 06/30/2005 Historical Note [facility] [employer] System Devyn Vásquez MD [address] [place] [address] [phone] Social History Tobacco Use Types Packs/Day Years [...] LEATHA CARRILLO - [facility] [address] [facility] [address] [place] [phone] Brenda Clay MD [address] [facility] [address] [place] [address] 04/15/2026 10:00 AM EDT Office Visit [facility] + [facility] [address] [facility] [address] [place] [address] Sena Dominguez PA [address] [facility] [place] [address] documented as of this encounter Visit Diagnoses Not on filedocumented in this encounter Care Teams Political Worker Relationship Specialty Start Date End Date Meme Steel MD [address] [place] [address] 105 [place] [address] PCP - General Pediatrics 06/05/18 04/25/22 No Pcp, Pcp PCP - General 06/08/22 07/19/22 Guadalupe Mcbride MD PCP - General Family Medicine 07/20/22 11/01/23 Sena Dominguez PA [address] [place] [address] [place] [address] PCP - BRADY Physician Web Page Designer 11/02/23 Levy Barry MD [address] [place] [address] [place] [address] PCP - General Family Medicine 12/20/23 documented as of this encounter
--- OUTSIDE RECORDS SUMMARY | 2025-07-26 15:24 | XMS_ITS | Encounter Summary ---
Author Organization [facility] work ([facility]) Address [address] [place] [address] Care Team Providers Care Fitness Supervisor Name Role Phone Meme Steel MD Primary Care Provider [phone] Pcp, Pcp Primary Care Provider Unavailabl Guadalupe Bardales MD Primary Care Provider [phone] Sena Dominguez Unavailable [phone] Levy Barry MD Primary Care Provider Unavailab le Source Comments The information that you have received may contain highly confidential and/or federally protected health information. This information has been disclosed to you from records protected by [facility]. The law prohibits you from [...] error, please contact the sender immediately.[facility] ([facility]) Encounter Details Date Type Department Care Team (Late st Contact Info) Description 09/01/2016 Historical Note [facility] Status Overload System Devyn Vásquez MD [address] [place] [address] [phone] Social History Tobacco Use Types Packs/Day Years [...] LEATHA CARRILLO - [facility] [address] [facility] [address] [place] [phone] Brenda Clay MD [address] [facility] [address] [place] [phone] 04/15/2026 10:00 AM EDT Office Visit [facility] [address] [facility] [address] [place] [address] Sena Dominguez PA [address] [facility] [place] [address] documented as of this encounter Visit Diagnoses Not on filedocumented in this encounter Care Teams Fitness Supervisor Relationship Specialty Start Date End Date Meme Steel MD [address] [place] [address] 105 [place] [address] PCP - General Pediatrics 06/05/18 04/25/22 No Pcp, Pcp PCP - General 06/08/22 07/19/22 Guadalupe Mcbride MD PCP - General Family Medicine 07/20/22 11/01/23 Sena Dominguez PA [address] [place] [address] [place] [address] PCP - BRADY Physician Diamond Grader 11/02/23 Levy Barry MD [address] [place] [address] [place] [address] PCP - General Family Medicine 12/20/23 documented as of this encounter
--- OUTSIDE RECORDS SUMMARY | 2025-07-26 15:24 | XMS_ITS | Encounter Summary ---
Author Organization [facility] work ([facility]) Address [address] [place] [address] Care Team Providers Care Test Kitchen Home Economist Name Role Phone Meme Steel MD Primary Care Provider [phone] Pcp, Pcp Primary Care Provider Unavailabl Guadalupe Bardales MD Primary Care Provider [phone] Sena Dominguez Unavailable [phone] Levy Barry MD Primary Care Provider Unavailab le Source Comments The information that you have received may contain highly confidential and/or federally protected health information. This information has been disclosed to you from records protected by [facility]. The law [...] in error, please contact the sender immediately.[facility] ([facility]) Encounter Details Date Type Department Care Team (Late st Contact Info) Description 06/14/2011 Historical Note [facility] Rocket Lawyer System Devyn Vásquez MD [address] [place] [address] [phone] Social History Tobacco Use Types Packs/Day Years [...] LEATHA CARRILLO - [facility] [address] [facility] [address] [place] [phone] Brenda Clay MD [address] [facility] [address] [place] [address] 04/15/2026 10:00 AM EDT Office Visit [facility] at [facility] [address] [facility] [address] [place] [address] Sena Domniguez PA [address] [facility] [place] [address] documented as of this encounter Visit Diagnoses Not on filedocumented in this encounter Care Teams Test Kitchen Home Economist Relationship Specialty Start Date End Date Meme Steel MD [address] [place] [address] 105 [place] [address] PCP - General Pediatrics 06/05/18 04/25/22 No Pcp, Pcp PCP - General 06/08/22 07/19/22 Guadalupe Mcbride MD PCP - General Family Medicine 07/20/22 11/01/23 Sena Dominguez PA [address] [place] [address] [place] [address] PCP - BRADY Physician Patient Care Associate 11/02/23 Levy Barry MD [address] [place] [address] [place] [address] PCP - General Family Medicine 12/20/23 documented as of this encounter
--- OUTSIDE RECORDS SUMMARY | 2025-07-26 15:24 | XMS_ITS | Encounter Summary ---
Author Organization [facility] work ([facility]) Address [address] [place] [address] Care Team Providers Care Manager Animation Name Role Phone Meme Steel MD Primary Care Provider [phone] No Pcp, Pcp Primary Care Provider Unavailabl Guadalupe Bardales MD Primary Care Provider [phone] Sena Dominguez Unavailable [phone] Levy Barry MD Primary Care Provider Unavailab le Source Comments The information that you have received may contain highly confidential and/or federally protected health information. This information has been disclosed to you from records protected by [facility]. The law prohibits you from making [...] information in error, please contact the sender immediately.[facility] ([facility]) Encounter Details Date Type Department Care Team (Late st Contact Info) Description 07/13/2016 Historical Note [facility] [employer]ding [employer] System Devyn Vásquez MD [address] [place] [address] [phone] Social History Tobacco Use Types Packs/Day Years [...] EST Office Visit LEATHA CARRILLO - [facility] [address] [facility] [address] [place] [phone] Brenda Clay MD [address] [facility] [address] [place] [phone] 04/15/2026 10:00 AM EDT Office Visit [facility] [address] [facility] [address] [place] [address] Sena Dominguez PA [address] [facility] [place] [address] documented as of this encounter Visit Diagnoses Not on filedocumented in this encounter Care Teams Manager Animation Relationship Specialty Start Date End Date Meme Steel MD [address] [place] [address] 105 [place] [address] PCP - General Pediatrics 06/05/18 04/25/22 No Pcp, Pcp PCP - General 06/08/22 07/19/22 Guadalupe Mcbride MD PCP - General Family Medicine 07/20/22 11/01/23 Sena Dominguez PA [address] [place] [address] [place] [address] PCP - BRADY Physician Class B Driver 11/02/23 Levy Barry MD [address] [place] [address] [place] [address] PCP - General Family Medicine 12/20/23 documented as of this encounter
--- OUTSIDE RECORDS SUMMARY | 2025-07-26 15:24 | XMS_ITS | Encounter Summary ---
Author Organization [facility] work ([facility]) Address [address] [place] [address] Care Team Providers Care Media Clerk Name Role Phone Meme Steel MD Primary Care Provider [phone] No Pcp, Pcp Primary Care Provider Unavailabl Guadalupe Bardales MD Primary Care Provider [phone] Sena Dominguez Unavailable [phone] Levy Barry MD Primary Care Provider Unavailab le Source Comments The information that you have received may contain highly confidential and/or federally protected health information. This information has been disclosed to you from records protected by [facility] [facility]. The law prohibits you [...] in error, please contact the sender immediately.[facility] ([facility]) Encounter Details Date Type Department Care Team (Late st Contact Info) Description 08/30/2005 Historical Note [facility] [employer] System Devyn Vásquez MD [address] [place] [address] [phone] Social History Tobacco Use Types Packs/Day Years [...] LEATHA CARRILLO - [facility] [address] [facility] [address] [place] [phone] Brenda Clay MD [address] [employer] [address] [place] [phone] 04/15/2026 10:00 AM EDT Office Visit [facility] at [facility] [address] [facility] [address] [place] [address] Sena Dominguez PA [address] [facility] [place] [address] documented as of this encounter Visit Diagnoses Not on filedocumented in this encounter Care Teams Media Clerk Relationship Specialty Start Date End Date Meme Steel MD [address] [place] [address] 105 [place] [address] PCP - General Pediatrics 06/05/18 04/25/22 No Pcp, Pcp PCP - General 06/08/22 07/19/22 Guadalupe Mcbride MD PCP - General Family Medicine 07/20/22 11/01/23 Sena Dominguez PA [address] [place] [address] [place] [address] PCP - BRADY Physician Health Associate 11/02/23 Levy Barry MD [address] [place] [address] [place] [address] PCP - General Family Medicine 12/20/23 documented as of this encounter
--- OUTSIDE RECORDS SUMMARY | 2025-07-26 15:24 | XMS_ITS | Encounter Summary ---
Author Organization [facility] work ([facility]) Address [address] [place] [address] Care Team Providers Care Track Grinder Name Role Phone Meme Steel MD Primary Care Provider [phone] Pcp, Pcp Primary Care Provider Unavailabl Guadalupe Bardales MD Primary Care Provider [phone] Sena Dominguez Unavailable [phone] Levy Barry MD Primary Care Provider Unavailab le Source Comments The information that you have received may contain highly confidential and/or federally protected health information. This information has been disclosed to you from records protected by [facility]. The law prohibits you [...] please contact the sender immediately.[facility] ([facility]) Encounter Details Date Type Department Care Team (Late st Contact Info) Description 08/13/2009 Historical Note [facility] Graspr System Devyn Vásquez MD [address] [place] [address] [phone] Social History Tobacco Use Types Packs/Day Years [...] Visit LEATHA CARRILLO - [facility] [address] [facility] [address] [place] [phone] Brenda Clay MD [address] [facility] [address] [place] [address] 04/15/2026 10:00 AM EDT Office Visit [facility] [place] [facility] [address] [facility] [address] [place] [address] Sena Dominguez PA [address] [facility] [place] [address] documented as of this encounter Visit Diagnoses Not on filedocumented in this encounter Care Teams Track Grinder Relationship Specialty Start Date End Date Meme Steel MD [address] [place] [address] 105 [place] [address] PCP - General Pediatrics 06/05/18 04/25/22 No Pcp, Pcp PCP - General 06/08/22 07/19/22 Guadalupe Mcbride MD PCP - General Family Medicine 07/20/22 11/01/23 Sena Dominguez PA [address] [place] [address] [place] [address] PCP - BRADY Physician Seasonal Package Handler 11/02/23 Levy Barry MD [address] [place] [address] [place] [address] PCP - General Family Medicine 12/20/23 documented as of this encounter
--- OUTSIDE RECORDS SUMMARY | 2025-07-26 15:24 | XMS_ITS | Encounter Summary ---
Author Organization [facility] work ([facility]) Address [address] [place] [address] Care Team Providers Care Dowel Setting Machine Operator Name Role Phone Meme Steel MD Primary Care Provider [phone] No Pcp, Pcp Primary Care Provider Unavailabl Guadalupe Bardales MD Primary Care Provider [phone] Sena Dominguez Unavailable [phone] Levy Barry MD Primary Care Provider Unavailab le Source Comments The information that you have received may contain highly confidential and/or federally protected health information. This information has been disclosed to you from records protected by [facility]. The law prohibits you from [...] information in error, please contact the sender immediately.[facility] ([facility]) Encounter Details Date Type Department Care Team (Late st Contact Info) Description 06/30/2005 Historical Note [facility] [email or web address] System Devyn Vásquez MD [address] [place] [address] [phone] Social History Tobacco Use Types Packs/Day Years [...] EST Office Visit LEATHA CARRILLO - [facility] [address] [facility] [address] [place] [phone] Brenda Clay MD [address] [facility] [address] [place] [address] 04/15/2026 10:00 AM EDT Office Visit [facility] at [facility] + [facility] [address] [facility] [address] [place] [address] Sena Dominguez PA [address] [facility] [place] [address] documented as of this encounter Visit Diagnoses Not on filedocumented in this encounter Care Teams Dowel Setting Machine Operator Relationship Specialty Start Date End Date Meme Steel MD [address] [place] [address] 105 [place] [address] PCP - General Pediatrics 06/05/18 04/25/22 No Pcp, Pcp PCP - General 06/08/22 07/19/22 Guadalupe Mcbride MD PCP - General Family Medicine 07/20/22 11/01/23 Sena Dominguez PA [address] [place] [address] [place] [address] PCP - BRADY Physician Audiovisual Production Specialist 11/02/23 Levy Barry MD [address] [place] [address] [place] [address] PCP - General Family Medicine 12/20/23 documented as of this encounter
--- OUTSIDE RECORDS SUMMARY | 2025-07-26 15:24 | XMS_ITS | Encounter Summary ---
Author Organization [facility] work ([facility]) Address [address] [place] [address] Care Team Providers Care Is/It Project Manager Name Role Phone Meme Steel MD Primary Care Provider [phone] No Pcp, Pcp Primary Care Provider Unavailabl Guadalupe Bardales MD Primary Care Provider [phone] Sena Dominguez Unavailable [phone] Levy Barry MD Primary Care Provider Unavailab le Source Comments The information that you have received may contain highly confidential and/or federally protected health information. This information has been disclosed to you from records protected by [facility]. The law prohibits [...] the sender immediately.[facility] ([facility]) Encounter Details Date Type Department Care Team (Late st Contact Info) Description 01/16/2017 Historical Note [facility] [employer] System Devyn Vásquez MD [address] [place] [address] [phone] Social History Tobacco Use Types Packs/Day Years [...] LEATHA CARRILLO - [facility] [address] [facility] [address] [place] [phone] Brenda Clay MD [address] [facility] [address] [place] [phone] 04/15/2026 10:00 AM EDT Office Visit [facility] [address] [facility] [address] [place] [address] Sena Dominguez PA [address] [facility] [place] [address] documented as of this encounter Visit Diagnoses Not on filedocumented in this encounter Care Teams Is/It Project Manager Relationship Specialty Start Date End Date Meme Steel MD [address] [place] [address] 105 [place] [address] PCP - General Pediatrics 06/05/18 04/25/22 No Pcp, Pcp PCP - General 06/08/22 07/19/22 Guadalupe Mcbride MD PCP - General Family Medicine 07/20/22 11/01/23 Sena Dominguez PA [address] [place] [address] [place] [address] PCP - BRADY Physician Inside Contractor Sales 11/02/23 Levy Barry MD [address] [place] [address] [place] [address] PCP - General Family Medicine 12/20/23 documented as of this encounter
--- OUTSIDE RECORDS SUMMARY | 2025-07-26 15:24 | XMS_ITS | Encounter Summary ---
Author Organization [facility] work ([facility]) Address [address] [place] [address] Care Team Providers Care Piped Buttonhole Machine Operator Name Role Phone Meme Steel MD Primary Care Provider [phone] Pcp, Pcp Primary Care Provider Unavailabl Guadalupe Bardales MD Primary Care Provider [phone] Sena Dominguez Unavailable [phone] Levy Barry MD Primary Care Provider Unavailab le Source Comments The information that you have received may contain highly confidential and/or federally protected health information. This information has been disclosed to you from records protected by [facility]. The law prohibits you from making any [...] in error, please contact the sender immediately.[facility] ([facility]) Encounter Details Date Type Department Care Team (Late st Contact Info) Description 03/29/2016 Historical Note [facility] TechFaith System Devyn Vásquez MD [address] [place] [address] [phone] Social History Tobacco Use Types Packs/Day Years [...] EST Office Visit LEATHA CARRILLO - [facility] at [facility] [address] [place] [phone] Brenda Clay MD [address] [facility] [address] [place] [phone] 04/15/2026 10:00 AM EDT Office Visit [facility] + [facility] [address] [place] [address] Sena Dominguez PA [address] [facility] [place] [address] documented as of this encounter Visit Diagnoses Not on filedocumented in this encounter Care Teams Piped Buttonhole Machine Operator Relationship Specialty Start Date End Date Meme Steel MD [address] [place] [address] 105 [place] [address] PCP - General Pediatrics 06/05/18 04/25/22 No Pcp, Pcp PCP - General 06/08/22 07/19/22 Guadalupe Mcbride MD PCP - General Family Medicine 07/20/22 11/01/23 Sena Dominguez PA [address] [place] [address] [place] [address] PCP - BRADY Physician Audio/Visual Operator 11/02/23 Levy Barry MD [address] [place] [address] [place] [address] PCP - General Family Medicine 12/20/23 documented as of this encounter
--- OUTSIDE RECORDS SUMMARY | 2025-07-26 15:24 | XMS_ITS | Encounter Summary ---
Author Organization [facility] work ([facility]) Address [address] [place] [address] Care Team Providers Care Inspector Filters Name Role Phone Meme Steel MD Primary Care Provider [phone] No Pcp, Pcp Primary Care Provider Unavailabl Guadalupe Bardales MD Primary Care Provider [phone] Sena Dominguez Unavailable [phone] Levy Barry MD Primary Care Provider Unavailab le Source Comments The information that you have received may contain highly confidential and/or federally protected health information. This information has been disclosed to you from records protected by [facility]. The law prohibits you from making [...] please contact the sender immediately.[facility] ([facility]) Encounter Details Date Type Department Care Team (Late st Contact Info) Description 10/27/2016 Historical Note [facility] CTI Science System Devyn Vásquez MD [address] [place] [address] [phone] Social History Tobacco Use Types Packs/Day Years [...] EST Office Visit LEATHA CARRILLO - [facility] at [facility] [address] [facility] [address] [place] [phone] Brenda Clay MD [address] [facility] [address] [place] [address] 04/15/2026 10:00 AM EDT Office Visit [facility] at [facility] + [facility] [address] [facility] [address] [place] [address] Sena Dominguez PA [address] [facility] [place] [address] documented as of this encounter Visit Diagnoses Not on filedocumented in this encounter Care Teams Inspector Filters Relationship Specialty Start Date End Date Meme Steel MD [address] [place] [address] 105 [place] [address] PCP - General Pediatrics 06/05/18 04/25/22 No Pcp, Pcp PCP - General 06/08/22 07/19/22 Guadalupe Mcbride MD PCP - General Family Medicine 07/20/22 11/01/23 Sena Dominguez PA [address] [place] [address] [place] [address] PCP - BRADY Physician Assistant Clinical Director 11/02/23 Levy Barry MD [address] [place] [address] [place] [address] PCP - General Family Medicine 12/20/23 documented as of this encounter
--- OUTSIDE RECORDS SUMMARY | 2025-07-26 15:24 | XMS_ITS | Encounter Summary ---
Author Organization [facility] work ([facility]) Address [address] [place] [address] Care Team Providers Care Medical Front Desk Specialist Name Role Phone Meme Steel MD Primary Care Provider [phone] Pcp, Pcp Primary Care Provider Unavailabl Guadalupe Bardales MD Primary Care Provider [phone] Sena Dominguez Unavailable Levy Barry MD Primary Care Provider Unavailab le Source Comments The information that you have received may contain highly confidential and/or federally protected health information. This information has been disclosed to you from records protected by [facility]. The law prohibits you from [...] information in error, please contact the sender immediately.[facility] ([facility]) Encounter Details Date Type Department Care Team (Late st Contact Info) Description 08/13/2009 Historical Note [facility] [employer] (MCG) System Devyn Vásquez MD [address] [place] [address] [phone] Social History Tobacco Use Types Packs/Day Years [...] AM EST Office Visit LEATHA CARRILLO - [facility] at [facility] [address] [place] [phone] Brenda Clay MD [address] [facility] [address] [place] [address] 04/15/2026 10:00 AM EDT Office Visit [facility] at [facility] + [facility] [address] [facility] [address] [place] [address] Sena Dominguez PA [address] [facility] [place] [address] documented as of this encounter Visit Diagnoses Not on filedocumented in this encounter Care Teams Medical Front Desk Specialist Relationship Specialty Start Date End Date Meme Steel MD [address] [place] [address] 105 [place] [address] PCP - General Pediatrics 06/05/18 04/25/22 No Pcp, Pcp PCP - General 06/08/22 07/19/22 Guadalupe Mcbride MD PCP - General Family Medicine 07/20/22 11/01/23 Sena Dominguez PA [address] [place] [address] [place] [address] PCP - BRADY Physician Frame Changer 11/02/23 Levy Barry MD [address] [place] [address] [place] [address] PCP - General Family Medicine 12/20/23 documented as of this encounter
--- OUTSIDE RECORDS SUMMARY | 2025-07-26 15:24 | XMS_ITS | Encounter Summary ---
Author Organization [facility] work ([facility]) Address [address] [place] [address] Care Team Providers Care Crab Backer Name Role Phone Meme Steel MD Primary Care Provider [phone] No Pcp, Pcp Primary Care Provider Unavailabl Guadalupe Bardales MD Primary Care Provider [phone] Sena Dominguez Unavailable [phone] Levy Barry MD Primary Care Provider Unavailab le Source Comments The information that you have received may contain highly confidential and/or federally protected health information. This information has been disclosed to you from records protected by [facility]. The law prohibits you from [...] sender immediately.[facility] ([facility]) Encounter Details Date Type Department Care Team (Late st Contact Info) Description 08/07/2009 Historical Note [facility] [employer] System Devyn Vásquez MD [address] [place] [address] [phone] Social History Tobacco Use Types Packs/Day Years [...] LEATHA CARRILLO - [facility] at [facility] [address] [place] [phone] Brenda Clay MD [address] [facility] [address] [place] [address] 04/15/2026 10:00 AM EDT Office Visit [facility]HA [facility] at [facility] + [facility] [address] [facility] [address] [place] [address] Sena Dominguez PA [address] [facility] [place] [address] documented as of this encounter Visit Diagnoses Not on filedocumented in this encounter Care Teams Crab Backer Relationship Specialty Start Date End Date Meme Steel MD [address] [place] [address] 105 [place] [address] PCP - General Pediatrics 06/05/18 04/25/22 No Pcp, Pcp PCP - General 06/08/22 07/19/22 Guadalupe Mcbride MD PCP - General Family Medicine 07/20/22 11/01/23 Sena Dominguez PA [address] [place] [address] [place] [address] PCP - BRADY Physician Water Treatment Plant Repairer 11/02/23 Levy Barry MD [address] [place] [address] [place] [address] PCP - General Family Medicine 12/20/23 documented as of this encounter
--- OUTSIDE RECORDS SUMMARY | 2025-07-26 15:24 | XMS_ITS | Encounter Summary ---
Author Organization [facility] work ([facility]) Address [address] [place] [address] Care Team Providers Care Boarder Machine Name Role Phone Meme Steel MD Primary Care Provider [phone] Pcp, Pcp Primary Care Provider Unavailabl Guadalupe Bardales MD Primary Care Provider [phone] Sena Dominguez Unavailable [phone] Levy Barry MD Primary Care Provider Unavailab le Source Comments The information that you have received may contain highly confidential and/or federally protected health information. This information has been disclosed to you from records protected by [facility]. The law prohibits you from [...] information in error, please contact the sender immediately.[facility] ([facility]) Encounter Details Date Type Department Care Team (Late st Contact Info) Description 05/31/2005 Historical Note [facility] [employer] System Devyn Vásquez MD [address] [place] [address] [phone] Social History Tobacco Use Types Packs/Day Years [...] LEATHA CARRILLO - [facility] at [facility] [address] [facility] [address] [place] [phone] Brenda Clay MD [address] [facility] [address] [place] [phone] 04/15/2026 10:00 AM EDT Office Visit [facility]HA [facility] at [facility] + [facility] [address] [facility] [address] [place] [address] Sena Dominguez PA [address] [facility] [place] [address] documented as of this encounter Visit Diagnoses Not on filedocumented in this encounter Care Teams Boarder Machine Relationship Specialty Start Date End Date Meme Steel MD [address] [place] [address] 105 [place] [address] PCP - General Pediatrics 06/05/18 04/25/22 No Pcp, Pcp PCP - General 06/08/22 07/19/22 Guadalupe Mcbride MD PCP - General Family Medicine 07/20/22 11/01/23 Sena Dominguez PA [address] [place] [address] [place] [address] PCP - BRADY Physician Tours Hostess 11/02/23 Levy Barry MD [address] [place] [address] [place] [address] PCP - General Family Medicine 12/20/23 documented as of this encounter
--- OUTSIDE RECORDS SUMMARY | 2025-07-26 15:24 | XMS_ITS | Encounter Summary ---
Author Organization [facility] work ([facility]) Address [address] [place] [address] Care Team Providers Care Associate Store Leader Name Role Phone Meme Steel MD Primary Care Provider [phone] Pcp, Pcp Primary Care Provider Unavailabl Guadalupe Bardales MD Primary Care Provider [phone] Sena Dominguez Unavailable [phone] Levy Barry MD Primary Care Provider Unavailab le Source Comments The information that you have received may contain highly confidential and/or federally protected health information. This information has been disclosed to you from records protected by [facility]. The law prohibits you from making [...] the sender immediately.[facility] ([facility]) Encounter Details Date Type Department Care Team (Late st Contact Info) Description 02/19/2010 Historical Note [facility] CMGE System Devyn Vásquez MD [address] [place] [address] [phone] Social History Tobacco Use Types Packs/Day Years [...] Visit LEATHA CARRILLO - [facility] at [facility] [address] [facility] [address] [place] [phone] Brenda Clay MD [address] [facility] [address] [place] [address] 04/15/2026 10:00 AM EDT Office Visit LE[facility]HA [facility] at [facility] + [facility] [address] [facility] [address] [place] [address] Sena Dominguez PA [address] [facility] [place] [address] documented as of this encounter Visit Diagnoses Not on filedocumented in this encounter Care Teams Associate Store Leader Relationship Specialty Start Date End Date Meme Steel MD [address] [place] [address] 105 [place] [address] PCP - General Pediatrics 06/05/18 04/25/22 No Pcp, Pcp PCP - General 06/08/22 07/19/22 Guadalupe Mcbride MD PCP - General Family Medicine 07/20/22 11/01/23 Sena Dominguez PA [address] [place] [address] [place] [address] PCP - BRADY Physician Cook Fish Eggs 11/02/23 Levy Barry MD [address] [place] [address] [place] [address] PCP - General Family Medicine 12/20/23 documented as of this encounter
--- OUTSIDE RECORDS SUMMARY | 2025-07-26 15:24 | XMS_ITS | Encounter Summary ---
Author Organization [facility] work ([facility]) Address [address] [place] [address] Care Team Providers Care Xerox Machine Assembler Name Role Phone Meme Steel MD Primary Care Provider [phone] Pcp, Pcp Primary Care Provider Unavailabl Guadalupe Bardales MD Primary Care Provider [phone] Sena Dominguez Unavailable [phone] Levy Barry MD Primary Care Provider Unavailab le Source Comments The information that you have received may contain highly confidential and/or federally protected health information. This information has been disclosed to you from records protected by [facility]. The law prohibits you [...] information in error, please contact the sender immediately.[facility] ([facility]) Encounter Details Date Type Department Care Team (Late st Contact Info) Description 05/31/2005 Historical Note [facility] CareSpotter System Devyn Vásquez MD [address] [place] [address] [phone] Social History Tobacco Use Types Packs/Day Years [...] AM EST Office Visit LEATHA CARRILLO - [facility] at [facility] [address] [facility] [address] [place] [phone] Brenda Clay MD [address] [facility] [address] [place] [address] 04/15/2026 10:00 AM EDT Office Visit [facility]HA [facility] + [facility] [address] [facility] [address] [place] [address] Sena Dominguez PA [address] [facility] [place] [address] documented as of this encounter Visit Diagnoses Not on filedocumented in this encounter Care Teams Xerox Machine Assembler Relationship Specialty Start Date End Date Meme Steel MD [address] [place] [address] 105 [place] [address] PCP - General Pediatrics 06/05/18 04/25/22 No Pcp, Pcp PCP - General 06/08/22 07/19/22 Guadalupe Mcbride MD PCP - General Family Medicine 07/20/22 11/01/23 Sena Dominguez PA [address] [place] [address] [place] [address] PCP - BRADY Physician Item Processor 11/02/23 Levy Barry MD [address] [place] [address] [place] [address] PCP - General Family Medicine 12/20/23 documented as of this encounter
--- OUTSIDE RECORDS SUMMARY | 2025-07-26 15:24 | XMS_ITS | Encounter Summary ---
Author Organization [facility] work ([facility]) Address [address] [place] [address] Care Team Providers Care Animal Physiologist Name Role Phone Meme Steel MD Primary Care Provider [phone] No Pcp, Pcp Primary Care Provider Unavailabl Guadalupe Bardales MD Primary Care Provider [phone] Sena Dominguez Unavailable [phone] Levy Barry MD Primary Care Provider Unavailab le Source Comments The information that you have received may contain highly confidential and/or federally protected health information. This information has been disclosed to you from records protected by [facility]. The law prohibits you from making [...] contact the sender immediately.[facility] ([facility]) Encounter Details Date Type Department Care Team (Late st Contact Info) Description 09/01/2009 Historical Note [facility] [employer] System Devyn Vásquez MD [address] [place] [address] [phone] Social History Tobacco Use Types Packs/Day Years [...] LEATHA CARRILLO - [facility] at [facility] [address] [facility] [address] [place] [phone] Brenda Clay MD [address] [facility] [address] [place] [address] 04/15/2026 10:00 AM EDT Office Visit LEATHA [facility] at [facility] + [facility] [address] [facility] [address] [place] [address] Sena Dominguez PA [address] [facility] [place] [address] documented as of this encounter Visit Diagnoses Not on filedocumented in this encounter Care Teams Animal Physiologist Relationship Specialty Start Date End Date Meme Steel MD [address] [place] [address] 105 [place] [address] PCP - General Pediatrics 06/05/18 04/25/22 No Pcp, Pcp PCP - General 06/08/22 07/19/22 Guadalupe Mcbride MD PCP - General Family Medicine 07/20/22 11/01/23 Sena Dominguez PA [address] [place] [address] [place] [address] PCP - BRADY Physician Hot Mill Shearer 11/02/23 Levy Barry MD [address] [place] [address] [place] [address] PCP - General Family Medicine 12/20/23 documented as of this encounter
--- OUTSIDE RECORDS SUMMARY | 2025-07-26 15:24 | XMS_ITS | Encounter Summary ---
Author Organization [facility] work ([facility]) Address [address] [place] [address] Care Team Providers Care Dietary Assistant Name Role Phone Meme Steel MD Primary Care Provider [phone] No Pcp, Pcp Primary Care Provider Unavailabl Guadalupe Bardales MD Primary Care Provider [phone] Sena Dominguez Unavailable [phone] Levy Barry MD Primary Care Provider Unavailab le Source Comments The information that you have received may contain highly confidential and/or federally protected health information. This information has been disclosed to you from records protected by [facility]. The law prohibits you [...] please contact the sender immediately.[facility] ([facility]) Encounter Details Date Type Department Care Team (Late st Contact Info) Description 02/02/2016 Historical Note [facility] [employer]On[employer] System Devyn Vásquez MD [address] [place] [address] [phone] Social History Tobacco Use Types Packs/Day Years [...] LEATHA CARRILLO - [facility] at [facility] [address] [facility] [address] [place] [phone] Brenda Clay MD [address] [facility] [address] [place] [address] 04/15/2026 10:00 AM EDT Office Visit LE[facility]HA [facility] at [facility] + [facility] [address] [facility] [address] [place] [address] Sena Dominguez PA [address] [facility] [place] [address] documented as of this encounter Visit Diagnoses Not on filedocumented in this encounter Care Teams Dietary Assistant Relationship Specialty Start Date End Date Meme Steel MD [address] [place] [address] 105 [place] [address] PCP - General Pediatrics 06/05/18 04/25/22 No Pcp, Pcp PCP - General 06/08/22 07/19/22 Guadalupe Mcbride MD PCP - General Family Medicine 07/20/22 11/01/23 Sena Dominguez PA [address] [place] [address] [place] [address] PCP - BRADY Physician Facility Examiner 11/02/23 Levy Barry MD [address] [place] [address] [place] [address] PCP - General Family Medicine 12/20/23 documented as of this encounter
--- OUTSIDE RECORDS SUMMARY | 2025-07-26 15:24 | XMS_ITS | Encounter Summary ---
Author Organization [facility] work ([facility]) Address [address] [place] [address] Care Team Providers Care Laundry Superintendent Name Role Phone Meme Steel MD Primary Care Provider [phone] No Pcp, Pcp Primary Care Provider Unavailabl Guadalupe Bardales MD Primary Care Provider [phone] Sena Dominguez Unavailable [phone] Levy Barry MD Primary Care Provider Unavailab le Source Comments The information that you have received may contain highly confidential and/or federally protected health information. This information has been disclosed to you from records protected by [facility]. The law prohibits you from making [...] information in error, please contact the sender immediately.[facility] ([facility]) Encounter Details Date Type Department Care Team (Late st Contact Info) Description 10/23/2009 Historical Note [facility] eEye System Devyn Vásquez MD [address] [place] [address] [phone] Social History Tobacco Use Types Packs/Day Years [...] AM EST Office Visit LEATHA CARRILLO - [facility] [address] [facility] [address] [place] [phone] Brenda Clay MD [address] [facility] [address] [place] [address] 04/15/2026 10:00 AM EDT Office Visit [facility]HA [facility] at [facility] + [facility] [address] [facility] [address] [place] [address] Sena Dominguez PA [address] [facility] [place] [address] documented as of this encounter Visit Diagnoses Not on filedocumented in this encounter Care Teams Laundry Superintendent Relationship Specialty Start Date End Date Meme Steel MD [address] [place] [address] 105 [place] [address] PCP - General Pediatrics 06/05/18 04/25/22 No Pcp, Pcp PCP - General 06/08/22 07/19/22 Guadalupe Mcbride MD PCP - General Family Medicine 07/20/22 11/01/23 Sena Dominguez PA [address] [place] [address] [place] [address] PCP - BRADY Physician Percussion Welding Machine Operator 11/02/23 Levy Barry MD [address] [place] [address] [place] [address] PCP - General Family Medicine 12/20/23 documented as of this encounter
--- OUTSIDE RECORDS SUMMARY | 2025-07-26 15:24 | XMS_ITS | Encounter Summary ---
Author Organization [facility] work ([facility]) Address [address] [place] [address] Care Team Providers Care Hand Picker Name Role Phone Meme Steel MD Primary Care Provider [phone] Pcp, Pcp Primary Care Provider Unavailabl Guadalupe Bardales MD Primary Care Provider Sena Dominguez Unavailable [phone] Levy Barry MD Primary Care Provider Unavailab le Source Comments The information that you have received may contain highly confidential and/or federally protected health information. This information has been disclosed to you from records protected by [facility]. The law prohibits you from [...] please contact the sender immediately.[facility] ([facility]) Encounter Details Date Type Department Care Team (Late st Contact Info) Description 03/09/2016 Historical Note [facility] Revolution Prep System Devyn Vásquez MD [address] [place] [address] [phone] Social History Tobacco Use Types Packs/Day Years [...] Description 10/10/2025 10:00 AM EST Office Visit LAETHA CARRILLO - [facility] [address] [facility] [address] [place] [phone] Brenda Clay MD [address] [facility] [address] [place] [address] 04/15/2026 10:00 AM EDT Office Visit [facility] + [facility] [address] [facility] [address] [place] [address] Sena Dominguez PA [address] [facility] [place] [address] documented as of this encounter Visit Diagnoses Not on filedocumented in this encounter Care Teams Hand Picker Relationship Specialty Start Date End Date Meme Steel MD [address] [place] [address] 105 [place] [address] PCP - General Pediatrics 06/05/18 04/25/22 No Pcp, Pcp PCP - General 06/08/22 07/19/22 Guadalupe Mcbride MD PCP - General Family Medicine 07/20/22 11/01/23 Sena Dominguez PA [address] [place] [address] [place] [address] PCP - BRADY Physician General Lithographic Worker 11/02/23 Levy Barry MD [address] [place] [address] [place] [address] PCP - General Family Medicine 12/20/23 documented as of this encounter
--- OUTSIDE RECORDS SUMMARY | 2025-07-26 15:24 | XMS_ITS | Encounter Summary ---
Author Organization [facility] work ([facility]) Address [address] [place] [address] Care Team Providers Care Platen Builder Up Name Role Phone Meme Steel MD Primary Care Provider [phone] Pcp, Pcp Primary Care Provider Unavailabl Guadalupe Bardales MD Primary Care Provider Sena Dominguez Unavailable [phone] Levy Barry MD Primary Care Provider Unavailab le Source Comments The information that you have received may contain highly confidential and/or federally protected health information. This information has been disclosed to you from records protected by [facility]. The law prohibits you [...] please contact the sender immediately.[facility] ([facility]) Encounter Details Date Type Department Care Team (Late st Contact Info) Description 06/14/2011 Historical Note [facility] [place] System Devyn Vásquez MD [address] [place] [address] [phone] Social History Tobacco Use Types Packs/Day Years [...] AM EST Office Visit LEATHA CARRILLO - [facility] [address] [facility] [address] [place] [phone] Brenda Clay MD [address] [facility] [address] [place] [address] 04/15/2026 10:00 AM EDT Office Visit [facility] + [facility] [address] [facility] [address] [place] [address] Sena Dominguez PA [address] [facility] [place] [address] documented as of this encounter Visit Diagnoses Not on filedocumented in this encounter Care Teams Platen Builder Up Relationship Specialty Start Date End Date Meme Steel MD [address] [place] [address] 105 [place] [address] PCP - General Pediatrics 06/05/18 04/25/22 No Pcp, Pcp PCP - General 06/08/22 07/19/22 Guadalupe Mcbride MD PCP - General Family Medicine 07/20/22 11/01/23 Sena Dominguez PA [address] [place] [address] [place] [address] PCP - BRADY Physician Stitchdown Toe Former 11/02/23 Levy Barry MD [address] [place] [address] [place] [address] PCP - General Family Medicine 12/20/23 documented as of this encounter
--- OUTSIDE RECORDS SUMMARY | 2025-07-26 15:24 | XMS_ITS | Encounter Summary ---
Author Organization [facility] work ([facility]) Address [address] [place] [address] Care Team Providers Care Net Developer Name Role Phone Meme Steel MD Primary Care Provider [phone] No Pcp, Pcp Primary Care Provider Unavailabl Guadalupe Bardales MD Primary Care Provider [phone] Sena Dominguez Unavailable [phone] Levy Barry MD Primary Care Provider Unavailab le Source Comments The information that you have received may contain highly confidential and/or federally protected health information. This information has been disclosed to you from records protected by [facility]. The law prohibits [...] contact the sender immediately.[facility] ([facility]) Encounter Details Date Type Department Care Team (Late st Contact Info) Description 01/16/2017 Historical Note [facility] Mediafly System Devyn Vásquez MD [address] [place] [address] [phone] Social History Tobacco Use Types Packs/Day Years [...] LEATHA CARRILLO - [facility] [address] [facility] [address] [place] [phone] Brenda Clay MD [address] [facility] [address] [place] [address] 04/15/2026 10:00 AM EDT Office Visit [facility] at [facility] + [facility] [address] [facility] [address] [place] [address] Sena Dominguez PA [address] [facility] [place] [address] documented as of this encounter Visit Diagnoses Not on filedocumented in this encounter Care Teams Net Developer Relationship Specialty Start Date End Date Meme Steel MD [address] [place] [address] 105 [place] [address] PCP - General Pediatrics 06/05/18 04/25/22 No Pcp, Pcp PCP - General 06/08/22 07/19/22 Guadalupe Mcbride MD PCP - General Family Medicine 07/20/22 11/01/23 Sena Dominguez PA [address] [place] [address] [place] [address] PCP - BRADY Physician Manager Fire 11/02/23 Levy Barry MD [address] [place] [address] [place] [address] PCP - General Family Medicine 12/20/23 documented as of this encounter
--- OUTSIDE RECORDS SUMMARY | 2025-07-26 15:24 | XMS_ITS | Encounter Summary ---
Author Organization [facility] work ([facility]) Address [address] [facility] [address] [place] [address] Care Team Providers Care Financial Systems Manager Name Role Phone Meme Steel MD Primary Care Provider [phone] No Pcp, Pcp Primary Care Provider Unavailabl Guadalupe Bardales MD Primary Care Provider [phone] Sena Dominguze Unavailable [phone] Levy Barry MD Primary Care Provider Unavailab le Source Comments The information that you have received may contain highly confidential and/or federally protected health information. This information has been disclosed to you from records protected by [facility]. The law prohibits you [...] information in error, please contact the sender immediately.[facility] ([facility]) Encounter Details Date Type Department Care Team (Late st Contact Info) Description 09/21/2010 Historical Note [facility] Convergent.io Technologies System Devyn Vásquez MD [address] [place] [address] [phone] Social History Tobacco Use Types Packs/Day Years [...] Visit LEATHA CARRILLO - [facility] [address] [facility] [address] [place] [phone] Brenda Clay MD [address] [facility] [address] [place] [address] 04/15/2026 10:00 AM EDT Office Visit [facility] at [facility] + [facility] [address] [facility] [address] [place] [address] Sena Dominguez PA [address] [facility] [place] [address] documented as of this encounter Visit Diagnoses Not on filedocumented in this encounter Care Teams Financial Systems Manager Relationship Specialty Start Date End Date Meme Steel MD [address] [place] [address] 105 [place] [address] PCP - General Pediatrics 06/05/18 04/25/22 No Pcp, Pcp PCP - General 06/08/22 07/19/22 Guadalupe Mcbride MD PCP - General Family Medicine 07/20/22 11/01/23 Sena Dominguez PA [address] [place] [address] [place] [address] PCP - BRADY Physician Cupola Melter 11/02/23 Levy Barry MD [address] [place] [address] [place] [address] PCP - General Family Medicine 12/20/23 documented as of this encounter
--- OUTSIDE RECORDS SUMMARY | 2025-07-26 15:24 | XMS_ITS | Encounter Summary ---
Author Organization [facility] work ([facility]) Address [address] [place] [address] Care Team Providers Care New Business Clerk Name Role Phone Meme Steel MD Primary Care Provider No Pcp, Pcp Primary Care Provider Unavailabl Guadalupe Bardales MD Primary Care Provider [phone] Sena Dominguez Unavailable [phone] Levy Barry MD Primary Care Provider Unavailab le Source Comments The information that you have received may contain highly confidential and/or federally protected health information. This information has been disclosed to you from records protected by [facility]. The law prohibits you from making [...] sender immediately.[facility] ([facility]) Encounter Details Date Type Department Care Team (Late st Contact Info) Description 06/02/2005 Historical Note [facility] enEvolv System Devyn Vásquez MD [address] [place] [address] [phone] Social History Tobacco Use Types Packs/Day Years [...] AM EST Office Visit LEATHA CARRILLO - [facility] [address] [facility] [address] [place] [phone] Brenda Clay MD [address] [facility] [address] [place] [address] 04/15/2026 10:00 AM EDT Office Visit [facility]HA [facility] at [facility] + [facility] [address] [facility] [address] [place] [address] Sena Dominguez PA [address] [facility] [place] [address] documented as of this encounter Visit Diagnoses Not on filedocumented in this encounter Care Teams New Business Clerk Relationship Specialty Start Date End Date Meme Steel MD [address] [place] [address] 105 [place] [address] PCP - General Pediatrics 06/05/18 04/25/22 No Pcp, Pcp PCP - General 06/08/22 07/19/22 Guadalupe Mcbride MD PCP - General Family Medicine 07/20/22 11/01/23 Sena Dominguez PA [address] [place] [address] [place] [address] PCP - BRADY Physician Song Writer 11/02/23 Levy Barry MD [address] [place] [address] [place] [address] PCP - General Family Medicine 12/20/23 documented as of this encounter
--- OUTSIDE RECORDS SUMMARY | 2025-07-26 15:24 | XMS_ITS | Encounter Summary ---
Author Organization [facility] work ([facility]) Address [address] [place] [address] Care Team Providers Care Passenger Barge Master Name Role Phone Meme Steel MD Primary Care Provider [phone] Pcp, Pcp Primary Care Provider Unavailabl Guadalupe Bardales MD Primary Care Provider [phone] Sena Dominguez Unavailable [phone] Levy Barry MD Primary Care Provider Unavailab le Source Comments The information that you have received may contain highly confidential and/or federally protected health information. This information has been disclosed to you from records protected by [facility]. The law prohibits you from making [...] information in error, please contact the sender immediately.[facility] ([facility]) Encounter Details Date Type Department Care Team (Late st Contact Info) Description 08/17/2010 Historical Note [facility] CitiVox System Devyn Vásquez MD [address] [place] [address] [phone] Social History Tobacco Use Types Packs/Day Years [...] CARRILLO - [facility] [address] [facility] [address] [place] [phone] Brenda Clay MD [address] [facility] [address] [place] [address] 04/15/2026 10:00 AM EDT Office Visit [facility]HA [facility] at [facility] + [facility] [address] [facility] [address] [place] [address] Sena Dominguez PA [address] [facility] [place] [address] documented as of this encounter Visit Diagnoses Not on filedocumented in this encounter Care Teams Passenger Barge Master Relationship Specialty Start Date End Date Meme Steel MD [address] [place] [address] 105 [place] [address] PCP - General Pediatrics 06/05/18 04/25/22 No Pcp, Pcp PCP - General 06/08/22 07/19/22 Guadalupe Mcbride MD PCP - General Family Medicine 07/20/22 11/01/23 Sena Dominguez PA [address] [place] [address] [place] [address] PCP - BRADY Physician Scale Shooter 11/02/23 Levy Barry MD [address] [place] [address] [place] [address] PCP - General Family Medicine 12/20/23 documented as of this encounter
--- OUTSIDE RECORDS SUMMARY | 2025-07-26 15:24 | XMS_ITS | Encounter Summary ---
Author Organization [facility] work ([facility]) Address [address] [place] [address] Care Team Providers Care Pony Worker Name Role Phone Meme Steel MD Primary Care Provider [phone] Pcp, Pcp Primary Care Provider Unavailabl Guadalupe Bardales MD Primary Care Provider [phone] Sena Dominguez Unavailable [phone] Levy Barry MD Primary Care Provider Unavailab le Source Comments The information that you have received may contain highly confidential and/or federally protected health information. This information has been disclosed to you from records protected by [facility]. The law prohibits you from making [...] please contact the sender immediately.[facility] ([facility]) Encounter Details Date Type Department Care Team (Late st Contact Info) Description 09/28/2005 Historical Note [facility] MyStore.com System Devyn Vásquez MD [address] [place] [address] [phone] Social History Tobacco Use Types Packs/Day Years [...] CARRILLO - [facility] at [facility] [address] [facility] [address] [place] [phone] Brenda Clay MD [address] [facility] [address] [place] [phone] 04/15/2026 10:00 AM EDT Office Visit [facility] + [facility] [address] [facility] [address] [place] [address] Sena Dominguez PA [address] [facility] [place] [address] documented as of this encounter Visit Diagnoses Not on filedocumented in this encounter Care Teams Pony Worker Relationship Specialty Start Date End Date Meme Steel MD [address] [place] [address] 105 [place] [address] PCP - General Pediatrics 06/05/18 04/25/22 No Pcp, Pcp PCP - General 06/08/22 07/19/22 Guadalupe Mcbride MD PCP - General Family Medicine 07/20/22 11/01/23 Sena Dominguez PA [address] [place] [address] [place] [address] PCP - BRADY Physician Day Camp Counselor 11/02/23 Levy Barry MD [address] [place] [address] [place] [address] PCP - General Family Medicine 12/20/23 documented as of this encounter
--- OUTSIDE RECORDS SUMMARY | 2025-07-26 15:24 | XMS_ITS | Encounter Summary ---
Author Organization [facility] work ([facility]) Address [address] [place] [address] Care Team Providers Care Junior Systems Analyst Name Role Phone Meme Steel MD Primary Care Provider [phone] Pcp, Pcp Primary Care Provider Unavailabl Guadalupe Bardales MD Primary Care Provider [phone] Sena Dominguez Unavailable [phone] Levy Barry MD Primary Care Provider Unavailab le Source Comments The information that you have received may contain highly confidential and/or federally protected health information. This information has been disclosed to you from records protected by [facility]. The law [...] error, please contact the sender immediately.[facility] ([facility]) Encounter Details Date Type Department Care Team (Late st Contact Info) Description 06/20/2005 Historical Note [facility] KannaLife Sciences System Devyn Vásquez MD [address] [place] [address] [phone] Social History Tobacco Use Types Packs/Day Years [...] CARRILLO - [facility] [address] [facility] [address] [place] [phone] Brenda Clya MD [address] [facility] [address] [place] [address] 04/15/2026 10:00 AM EDT Office Visit LE[facility]HA [facility] at [facility] + [facility] [address] [facility] [address] [place] [address] Sena Dominguez PA [address] [facility] [place] [address] documented as of this encounter Visit Diagnoses Not on filedocumented in this encounter Care Teams Junior Systems Analyst Relationship Specialty Start Date End Date Meme Steel MD [address] [place] [address] 105 [place] [address] PCP - General Pediatrics 06/05/18 04/25/22 No Pcp, Pcp PCP - General 06/08/22 07/19/22 Guadalupe Mcbride MD PCP - General Family Medicine 07/20/22 11/01/23 Sena Dominguez PA [address] [place] [address] [place] [address] PCP - BRADY Physician Containers Sales Representative 11/02/23 Levy Barry MD [address] [place] [address] [place] [address] PCP - General Family Medicine 12/20/23 documented as of this encounter
--- OUTSIDE RECORDS SUMMARY | 2025-07-26 15:25 | XMS_ITS | Encounter Summary ---
Author Organization [facility] work ([facility]) Address [address] [place] [address] Care Team Providers Care Forge Shop Machine Repairer Name Role Phone Meme Steel MD Primary Care Provider [phone] Pcp, Pcp Primary Care Provider Unavailabl Guadalupe Bardales MD Primary Care Provider [phone] Sena Dominguez Unavailable [phone] Levy Barry MD Primary Care Provider Unavailab le Source Comments The information that you have received may contain highly confidential and/or federally protected health information. This information has been disclosed to you from records protected by [facility]. The law prohibits you from [...] information in error, please contact the sender immediately.[facility] ([facility]) Encounter Details Date Type Department Care Team (Late st Contact Info) Description 04/12/2005 Historical Note [facility] Oncimmune System Devyn Vásquez MD [address] [place] [address] [phone] Social History Tobacco Use Types Packs/Day Years [...] Visit LEATHA CARRILLO - [facility] [address] [facility] [address] [place] [phone] Brenda Clay MD [address] [facility] [address] [place] [address] 04/15/2026 10:00 AM EDT Office Visit [facility] + [facility] [address] [facility] [address] [place] [address] Sena Dominguez PA [address] [facility] [place] [address] documented as of this encounter Visit Diagnoses Not on filedocumented in this encounter Care Teams Forge Shop Machine Repairer Relationship Specialty Start Date End Date Meme Steel MD [address] [place] [address] 105 [place] [address] PCP - General Pediatrics 06/05/18 04/25/22 No Pcp, Pcp PCP - General 06/08/22 07/19/22 Guadalupe Mcbride MD PCP - General Family Medicine 07/20/22 11/01/23 Sena Dominguez PA [address] [place] [address] [place] [address] PCP - BRADY Physician Quartz Orientator 11/02/23 Levy Barry MD [address] [place] [address] [place] [address] PCP - General Family Medicine 12/20/23 documented as of this encounter
--- OUTSIDE RECORDS SUMMARY | 2025-07-26 15:25 | XMS_ITS | Encounter Summary ---
Author Organization [facility] work ([facility]) Address [address] [place] [address] Care Team Providers Care Black Jack Dealer Name Role Phone Meme Steel MD Primary Care Provider [phone] Pcp, Pcp Primary Care Provider Unavailabl Guadalupe Bardales MD Primary Care Provider [phone] Sena Dominguez Unavailable [phone] Levy Barry MD Primary Care Provider Unavailab le Source Comments The information that you have received may contain highly confidential and/or federally protected health information. This information has been disclosed to you from records protected by [facility]. The law prohibits you from [...] please contact the sender immediately.[facility] ([facility]) Encounter Details Date Type Department Care Team (Late st Contact Info) Description 10/27/2016 Historical Note [facility] FindIt System Devyn Vásquez MD [address] [place] [phone] Social History Tobacco Use Types Packs/Day Years [...] [facility] [address] [facility] [address] [place] [phone] Brenda Clay MD [address] [facility] [address] [place] [address] 04/15/2026 10:00 AM EDT Office Visit [facility] + [facility] [address] [facility] [address] [place] [address] Sena Dominguez PA [address] [facility] [place] [address] documented as of this encounter Visit Diagnoses Not on filedocumented in this encounter Care Teams Black Jack Dealer Relationship Specialty Start Date End Date Meme Steel MD [address] [place] [address] 105 [place] [address] PCP - General Pediatrics 06/05/18 04/25/22 No Pcp, Pcp PCP - General 06/08/22 07/19/22 Guadalupe Mcbride MD PCP - General Family Medicine 07/20/22 11/01/23 Sena Dominguez PA [address] [place] [address] [place] [address] PCP - BRADY Physician Trolley Car Overhauler 11/02/23 Levy Barry MD [address] [place] [address] [place] [address] PCP - General Family Medicine 12/20/23 documented as of this encounter
--- OUTSIDE RECORDS SUMMARY | 2025-07-26 15:25 | XMS_ITS | Encounter Summary ---
Author Organization [facility] work ([facility]) Address [address] [place] [address] Care Team Providers Care Nutrition Instructor Name Role Phone Meme Steel MD Primary Care Provider [phone] Pcp, Pcp Primary Care Provider Unavailabl Guadalupe Bardales MD Primary Care Provider [phone] Sena Dominguez Unavailable [phone] Levy Barry MD Primary Care Provider Unavailab le Source Comments The information that you have received may contain highly confidential and/or federally protected health information. This information has been disclosed to you from records protected by [facility]. The law prohibits you [...] sender immediately.[facility] ([facility]) Encounter Details Date Type Department Care Team (Late st Contact Info) Description 10/01/2008 Historical Note [facility] Clinicient System Devyn Vásquez MD [address] [place] [address] [phone] Social History Tobacco Use Types Packs/Day Years [...] CARRILLO - [facility] [address] [facility] [address] [address] [place] [phone] Brenda Clay MD [address] [facility] [address] [place] [address] 04/15/2026 10:00 AM EDT Office Visit [facility]HA [facility] at [facility] + [facility] [address] [place] [address] Sena Dominguez PA [address] [place] [address] documented as of this encounter Visit Diagnoses Not on filedocumented in this encounter Care Teams Nutrition Instructor Relationship Specialty Start Date End Date Meme Steel MD [address] [place] [address] 105 [place] [address] PCP - General Pediatrics 06/05/18 04/25/22 No Pcp, Pcp PCP - General 06/08/22 07/19/22 Guadalupe Mcbride MD PCP - General Family Medicine 07/20/22 11/01/23 Sena Dominguez PA [address] [place] [address] [place] [address] PCP - BRADY Physician Studio Director 11/02/23 Levy Barry MD [address] [place] [address] [place] [address] PCP - General Family Medicine 12/20/23 documented as of this encounter
--- OUTSIDE RECORDS SUMMARY | 2025-07-26 15:25 | XMS_ITS | Encounter Summary ---
Author Organization [facility] work ([facility]) Address [address] [place] [address] Care Team Providers Care Oil Filters Inspector Name Role Phone Meme Steel MD Primary Care Provider [phone] Pcp, Pcp Primary Care Provider Unavailabl Guadalupe Bardales MD Primary Care Provider [phone] Sena Dominguez Unavailable [phone] Levy Barry MD Primary Care Provider Unavailab le Source Comments The information that you have received may contain highly confidential and/or federally protected health information. This information has been disclosed to you from records protected by [facility]. The law prohibits you from [...] please contact the sender immediately.[facility] ([facility] Encounter Details Date Type Department Care Team (Late st Contact Info) Description 08/06/2009 Historical Note [facility] Baravento System Devyn Vásquez MD [address] [place] [address] [phone] Social History Tobacco Use Types Packs/Day Years [...] AM EST Office Visit LEATHA CARRILLO - [facility] [address] [facility] [address] [place] [phone] Brenda Clay MD [address] [facility] [address] [place] [address] 04/15/2026 10:00 AM EDT Office Visit [facility]HA [facility] at [facility] + [facility] [address] [facility] [address] [place] [address] Sena Dominguez PA [address] [facility] [place] [address] documented as of this encounter Visit Diagnoses Not on filedocumented in this encounter Care Teams Oil Filters Inspector Relationship Specialty Start Date End Date Meme Steel MD [address] [place] [address] 105 [place] [address] PCP - General Pediatrics 06/05/18 04/25/22 No Pcp, Pcp PCP - General 06/08/22 07/19/22 Guadalupe Mcbride MD PCP - General Family Medicine 07/20/22 11/01/23 Sena Dominguez PA [address] [place] [address] [place] [address] PCP - BRADY Physician Electrician Sound 11/02/23 Levy Barry MD [address] [place] [address] [place] [address] PCP - General Family Medicine 12/20/23 documented as of this encounter
--- OUTSIDE RECORDS SUMMARY | 2025-07-26 15:25 | XMS_ITS | Encounter Summary ---
Author Organization [facility] work ([facility]) Address [address] [place] [address] Care Team Providers Care Conditioning Machine Operator Name Role Phone Meme Steel MD Primary Care Provider [phone] Pcp, Pcp Primary Care Provider Unavailabl Guadalupe Bardales MD Primary Care Provider [phone] Sena Dominguez Unavailable [phone] Levy Barry MD Primary Care Provider Unavailab le Source Comments The information that you have received may contain highly confidential and/or federally protected health information. This information has been disclosed to you from records protected by [facility]. The law prohibits you [...] please contact the sender immediately.[facility] ([facility]) Encounter Details Date Type Department Care Team (Late st Contact Info) Description 08/12/2008 Historical Note [facility] GodTube System Devyn Vásquez MD [address] [place] [address] [phone] Social History Tobacco Use Types Packs/Day Years [...] LEATHA CARRILLO - [facility] [address] [facility] [address] [place] [phone] Brenda Clay MD [address] [facility] [address] [place] [address] 04/15/2026 10:00 AM EDT Office Visit LEATHA [facility] at [facility] + [facility] [address] [facility] [address] [place] [address] Sena Dominguez PA [address] [facility] [place] [address] documented as of this encounter Visit Diagnoses Not on filedocumented in this encounter Care Teams Conditioning Machine Operator Relationship Specialty Start Date End Date Meme Steel MD [address] [place] [address] 105 [place] [address] PCP - General Pediatrics 06/05/18 04/25/22 No Pcp, Pcp PCP - General 06/08/22 07/19/22 Guadalupe Mcbride MD PCP - General Family Medicine 07/20/22 11/01/23 Sena Dominguez PA [address] [place] [address] [place] [address] PCP - BRADY Physician Steeler 11/02/23 Levy Barry MD [address] [place] [address] [place] [address] PCP - General Family Medicine 12/20/23 documented as of this encounter
--- OUTSIDE RECORDS SUMMARY | 2025-07-26 15:25 | XMS_ITS | Encounter Summary ---
Author Organization [facility] work ([facility] Address [address] [place] [address] Care Team Providers Care Registered Nurse Supervisor Name Role Phone Meme Steel MD Primary Care Provider [phone] Pcp, Pcp Primary Care Provider Unavailabl Guadalupe Bardales MD Primary Care Provider [phone] Sena Dominguez Unavailable [phone] Levy Barry MD Primary Care Provider Unavailab le Source Comments The information that you have received may contain highly confidential and/or federally protected health information. This information has been disclosed to you from records protected by [facility]. The law prohibits you from making [...] the sender immediately.[facility] ([facility] Encounter Details Date Type Department Care Team (Late st Contact Info) Description 06/24/2005 Historical Note [facility] Yozio System Devyn Vásquez MD [address] [place] [address] [phone] Social History Tobacco Use Types Packs/Day Years [...] Office Visit LEATHA CARRILLO - [facility] [address] [facility] [address] [place] [phone] Brenda Clay MD [address] [facility] [address] [place] [address] 04/15/2026 10:00 AM EDT Office Visit [facility]ATHA [facility] at [facility] + [facility] [address] [facility] [address] [place] [address] Sena Dominguez PA [address] [facility] [place] [address] documented as of this encounter Visit Diagnoses Not on filedocumented in this encounter Care Teams Registered Nurse Supervisor Relationship Specialty Start Date End Date Meme Steel MD [address] [place] [address] 105 [place] [address] PCP - General Pediatrics 06/05/18 04/25/22 No Pcp, Pcp PCP - General 06/08/22 07/19/22 Guadalupe Mcbride MD PCP - General Family Medicine 07/20/22 11/01/23 Sena Dominguez PA [address] [place] [address] [place] [address] PCP - BRADY Physician System Archive Analyst 11/02/23 Levy Barry MD [address] [place] [address] [place] [address] PCP - General Family Medicine 12/20/23 documented as of this encounter
--- OUTSIDE RECORDS SUMMARY | 2025-07-26 15:25 | XMS_ITS | Encounter Summary ---
Author Organization [facility] work ([facility]) Address [address] [place] [address] Care Team Providers Care Bar Host/Hostess Name Role Phone Meme Steel MD Primary Care Provider [phone] Pcp, Pcp Primary Care Provider Unavailabl Guadalupe Bardales MD Primary Care Provider [phone] Sena Dominguez Unavailable [phone] Levy Barry MD Primary Care Provider Unavailab le Source Comments The information that you have received may contain highly confidential and/or federally protected health information. This information has been disclosed to you from records protected by [facility]. The law prohibits you from making [...] error, please contact the sender immediately.[facility] ([facility]) Encounter Details Date Type Department Care Team (Late st Contact Info) Description 04/09/2009 Historical Note [facility] Comfort Line System Devyn Vásquez MD [address] [place] [address] [phone] Social History Tobacco Use Types Packs/Day Years [...] [facility] [address] [facility] [address] [place] [phone] Brenda Clay MD [address] [facility] [address] [place] [address] 04/15/2026 10:00 AM EDT Office Visit LEATHA [facility] at [facility] + [facility] [address] [facility] [address] [place] [address] Sena Dominguez PA [address] [facility] [place] [address] documented as of this encounter Visit Diagnoses Not on filedocumented in this encounter Care Teams Bar Host/Hostess Relationship Specialty Start Date End Date Meme Steel MD [address] [place] [address] 105 [place] [address] PCP - General Pediatrics 06/05/18 04/25/22 No Pcp, Pcp PCP - General 06/08/22 07/19/22 Guadalupe Mcbride MD PCP - General Family Medicine 07/20/22 11/01/23 Sena Dominguez PA [address] [place] [address] [place] [address] PCP - BRADY Physician Court Commissioner 11/02/23 Levy Barry MD [address] [place] [address] [place] [address] PCP - General Family Medicine 12/20/23 documented as of this encounter
--- OUTSIDE RECORDS SUMMARY | 2025-07-26 15:25 | XMS_ITS | Encounter Summary ---
Author Organization [facility] work ([facility]) Address [address] [place] [address] Care Team Providers Care Director Of Analytical Development Name Role Phone Meme Steel MD Primary Care Provider [phone] Pcp, Pcp Primary Care Provider Unavailabl Guadalupe Bardales MD Primary Care Provider [phone] Sena Dominguez Unavailable [phone] Levy Barry MD Primary Care Provider Unavailab le Source Comments The information that you have received may contain highly confidential and/or federally protected health information. This information has been disclosed to you from records protected by [facility]. The law prohibits you from [...] information in error, please contact the sender immediately.[facility] ([facility]) Encounter Details Date Type Department Care Team (Late st Contact Info) Description 04/09/2009 Historical Note [facility] Microarrays System Devyn Vásquez MD [address] [place] [address] [phone] Social History Tobacco Use Types Packs/Day Years [...] CARRILLO - [facility] [address] [facility] [address] [place] [phone] Brenda Clay MD [address] [facility] [address] [place] [phone] 04/15/2026 10:00 AM EDT Office Visit LEATHA [facility] at [facility] [place] [facility] + [facility] [address] [place] [address] Sena Dominguez PA [address] [place] [address] documented as of this encounter Visit Diagnoses Not on filedocumented in this encounter Care Teams Director Of Analytical Development Relationship Specialty Start Date End Date Meme Steel MD [address] [place] [address] 105 [place] [address] PCP - General Pediatrics 06/05/18 04/25/22 No Pcp, Pcp PCP - General 06/08/22 07/19/22 Guadalupe Mcbride MD PCP - General Family Medicine 07/20/22 11/01/23 Sena Dominguez PA [address] [place] [address] [place] [address] PCP - BRADY Physician Critical Care Physician Assistant 11/02/23 Levy Barry MD [address] [place] [address] [place] [address] PCP - General Family Medicine 12/20/23 documented as of this encounter
--- OUTSIDE RECORDS SUMMARY | 2025-07-26 15:25 | XMS_ITS | Encounter Summary ---
Author Organization [facility] work ([facility]) Address [address] [place] [address] Care Team Providers Care Head Batcher Name Role Phone Meme Steel MD Primary Care Provider [phone] Pcp, Pcp Primary Care Provider Unavailabl Guadalupe Bardales MD Primary Care Provider [phone] Sena Dominguez Unavailable [phone] Levy Barry MD Primary Care Provider Unavailab le Source Comments The information that you have received may contain highly confidential and/or federally protected health information. This information has been disclosed to you from records protected by [facility]. The law prohibits [...] please contact the sender immediately.[facility] ([facility]) Encounter Details Date Type Department Care Team (Late st Contact Info) Description 2004 Historical Note [facility] Frontierre System Devyn Vásquez MD [address] [place] [phone] Social History Tobacco Use Types Packs/Day Years [...] CARRILLO - [facility] [address] [facility] [address] [place] [phone] Brenda [place] MD [address] [facility] [address] [place] [address] 04/15/2026 10:00 AM EDT Office Visit LEATHA Primary [facility] at [facility] + [facility] [address] [facility] [address] [place] [address] Sena Dominguez PA [address] [facility] [place] [address] documented as of this encounter Visit Diagnoses Not on filedocumented in this encounter Care Teams Head Batcher Relationship Specialty Start Date End Date Meme Steel MD [address] [place] [address] 105 [place] [address] PCP - General Pediatrics 06/05/18 04/25/22 No Pcp, Pcp PCP - General 06/08/22 07/19/22 Guadalupe Mcbride MD PCP - General Family Medicine 07/20/22 11/01/23 Sena Dominguez PA [address] [place] [address] [place] [address] PCP - BRADY Physician [employer] 11/02/23 Levy Barry MD [address] [place] [address] [place] [address] PCP - General Family Medicine 12/20/23 documented as of this encounter
--- OUTSIDE RECORDS SUMMARY | 2025-07-26 15:25 | XMS_ITS | Encounter Summary ---
Author Organization [facility] work ([facility]) Address [address] [place] [address] Care Team Providers Care Cloth Checker Name Role Phone Meme Steel MD Primary Care Provider [phone] Pcp, Pcp Primary Care Provider Unavailabl Guadalupe Bardales MD Primary Care Provider [phone] Sena Dominguez Unavailable [phone] Levy Barry MD Primary Care Provider Unavailab le Source Comments The information that you have received may contain highly confidential and/or federally protected health information. This information has been disclosed to you from records protected by [facility]. The law prohibits you from [...] the sender immediately.[facility] ([facility]) Encounter Details Date Type Department Care Team (Late st Contact Info) Description 09/15/2015 Historical Note [facility] Enova Systems System Devyn Vásquez MD [address] [place] [address] [phone] Social History Tobacco Use Types Packs/Day Years [...] CARRILLO - [facility] [address] [facility] [address] [place] [phone] Brenda [place] MD [address] [facility] [address] [place] [phone] 04/15/2026 10:00 AM EDT Office Visit LEATHA Primary [facility] at [facility] + [facility] [address] [facility] [address] [place] [address] Sena Dominguez PA [address] [facility] [place] [address] documented as of this encounter Visit Diagnoses Not on filedocumented in this encounter Care Teams Cloth Checker Relationship Specialty Start Date End Date Meme Steel MD [address] [place] [address] 105 [place] [address] PCP - General Pediatrics 06/05/18 04/25/22 No Pcp, Pcp PCP - General 06/08/22 07/19/22 Guadalupe Mcbride MD PCP - General Family Medicine 07/20/22 11/01/23 Sena Dominguez PA [address] [place] [address] [place] [address] PCP - BRADY Physician Junior Systems Administrator 11/02/23 Levy Barry MD [address] [place] [address] [place] [address] PCP - General Family Medicine 12/20/23 documented as of this encounter
--- OUTSIDE RECORDS SUMMARY | 2025-07-26 15:25 | XMS_ITS | Encounter Summary ---
Author Organization [facility] work ([facility]) Address [address] [place] [address] Care Team Providers Care Nuclear Plant Equipment Operator Name Role Phone Meme Steel MD Primary Care Provider [phone] Pcp, Pcp Primary Care Provider Unavailabl Guadalupe Bardales MD Primary Care Provider [phone] Sena Dominguez Unavailable [phone] Levy Barry MD Primary Care Provider Unavailab le Source Comments The information that you have received may contain highly confidential and/or federally protected health information. This information has been disclosed to you from records protected by [facility]. The law prohibits [...] information in error, please contact the sender immediately.[facility] ([facility]) Encounter Details Date Type Department Care Team (Late st Contact Info) Description 10/27/2016 Historical Note [facility] [employer] System Devyn Vásquez MD [address] [place] [address] [phone] Social History Tobacco Use Types Packs/Day Years [...] CARRILLO - [facility] [address] [facility] [address] [place] [phone] Brenda [place] MD [address] [facility] [address] [place] [address] 04/15/2026 10:00 AM EDT Office Visit LEATHA [facility] at [facility] + [facility] [address] [facility] [address] [place] [address] Sena Dominguez PA [address] [facility] [place] [address] documented as of this encounter Visit Diagnoses Not on filedocumented in this encounter Care Teams Nuclear Plant Equipment Operator Relationship Specialty Start Date End Date Meme Steel MD [address] [place] [address] 105 [place] [address] PCP - General Pediatrics 06/05/18 04/25/22 No Pcp, Pcp PCP - General 06/08/22 07/19/22 Guadalupe Mcbride MD PCP - General Family Medicine 07/20/22 11/01/23 Sena Dominguez PA [address] [place] [address] [place] [address] PCP - BRADY Physician Office Service Coordinator 11/02/23 Levy Barry MD [address] [place] [address] [place] [address] PCP - General Family Medicine 12/20/23 documented as of this encounter
--- OUTSIDE RECORDS SUMMARY | 2025-07-26 15:25 | XMS_ITS | Encounter Summary ---
Author Organization [facility] work ([facility]) Address [address] [place] [address] Care Team Providers Care Dining Room Helper Name Role Phone Meme Steel MD Primary Care Provider [phone] Pcp, Pcp Primary Care Provider Unavailabl Guadalupe Bardales MD Primary Care Provider Sena Dominguez Unavailable [phone] Levy Barry MD Primary Care Provider Unavailab le Source Comments The information that you have received may contain highly confidential and/or federally protected health information. This information has been disclosed to you from records protected by [facility]. The law prohibits you from [...] contact the sender immediately.[facility] ([facility]) Encounter Details Date Type Department Care Team (Late st Contact Info) Description 12/31/2015 Historical Note [facility] MediaB[employer] System Devyn Vásquez MD [address] [place] [address] [phone] Social History Tobacco Use Types Packs/Day Years [...] Office Visit LEATHA CARRILLO - [facility] [address] [facility] [address] [place] [phone] Brenda [place] MD [address] [facility] [address] [place] [phone] 04/15/2026 10:00 AM EDT Office Visit LEATHA [facility] at [facility] + [facility] [address] [facility] [address] [place] [address] Sena Dominguez PA [address] [facility] [place] [address] documented as of this encounter Visit Diagnoses Not on filedocumented in this encounter Care Teams Dining Room Helper Relationship Specialty Start Date End Date Meme Steel MD [address] [place] [address] 105 [place] [address] PCP - General Pediatrics 06/05/18 04/25/22 No Pcp, Pcp PCP - General 06/08/22 07/19/22 Guadalupe Mcbride MD PCP - General Family Medicine 07/20/22 11/01/23 Sena Domingeuz PA [address] [place] [address] [place] [address] PCP - BRADY Physician Forest Pathology Teacher 11/02/23 Levy Barry MD [address] [place] [address] [place] [address] PCP - General Family Medicine 12/20/23 documented as of this encounter
--- OUTSIDE RECORDS SUMMARY | 2025-07-26 15:25 | XMS_ITS | Encounter Summary ---
Author Organization [facility] work ([facility]) Address [address] [place] [address] Care Team Providers Care Contract Loader Name Role Phone Meme Steel MD Primary Care Provider [phone] Pcp, Pcp Primary Care Provider Unavailabl Guadalupe Bardales MD Primary Care Provider [phone] Sena Dominguez Unavailable [phone] Levy Barry MD Primary Care Provider Unavailab le Source Comments The information that you have received may contain highly confidential and/or federally protected health information. This information has been disclosed to you from records protected by [facility]. The law prohibits you [...] please contact the sender immediately.[facility] ([facility]) Encounter Details Date Type Department Care Team (Late st Contact Info) Description 2004 Historical Note [facility]G AXS-One System Devyn Vásquez MD [address] [place] [address] [phone] Social History Tobacco Use Types Packs/Day Years [...] EST Office Visit LEATHA CARRILLO - [facility] [address] [place] [phone] Brenda Clay MD [address] [facility] [address] [place] [phone] 04/15/2026 10:00 AM EDT Office Visit [facility] [address] [place] [address] Sena Dominguez PA [address] [place] [address] documented as of this encounter Visit Diagnoses Not on filedocumented in this encounter Care Teams Contract Loader Relationship Specialty Start Date End Date Meme Steel MD [address] [place] [address] 105 [place] [address] PCP - General Pediatrics 06/05/18 04/25/22 No Pcp, Pcp PCP - General 06/08/22 07/19/22 Guadalupe Mcbride MD PCP - General Family Medicine 07/20/22 11/01/23 Sena Dominguez PA [address] [place] [address] [place] [address] PCP - BRADY Physician Mother'S Helper 11/02/23 Levy Barry MD [address] [place] [address] [place] [address] PCP - General Family Medicine 12/20/23 documented as of this encounter
--- OUTSIDE RECORDS SUMMARY | 2025-07-26 15:25 | XMS_ITS | Encounter Summary ---
Author Organization [facility] work ([facility]) Address [address] [place] [address] Care Team Providers Care Firer Automatic Stoker Name Role Phone Meme Steel MD Primary Care Provider [phone] Pcp, Pcp Primary Care Provider Unavailabl Guadalupe Bardales MD Primary Care Provider Sena Dominguez Unavailable [phone] Levy Barry MD Primary Care Provider Unavailab le Source Comments The information that you have received may contain highly confidential and/or federally protected health information. This information has been disclosed to you from records protected by [facility]. The law prohibits you from [...] error, please contact the sender immediately.[facility] ([facility]) Encounter Details Date Type Department Care Team (Late st Contact Info) Description 05/28/2015 Historical Note SVMG Qoniac System Devyn Vásquez MD [address] [place] [address] [phone] Social History Tobacco Use Types Packs/Day Years [...] [facility] [address] [place] [phone] Brenda Clay MD [address] [facility] [address] [place] [phone] 04/15/2026 10:00 AM EDT Office Visit LE[facility]HA [facility] at [facility] + [facility] [address] [place] [address] Sena Dominguez PA [address] [facility] [place] [address] documented as of this encounter Visit Diagnoses Not on filedocumented in this encounter Care Teams Firer Automatic Stoker Relationship Specialty Start Date End Date Meme Steel MD [address] [place] [address] 105 [place] [phone] PCP - General Pediatrics 06/05/18 04/25/22 No Pcp, Pcp PCP - General 06/08/22 07/19/22 Guadalupe Mcbride MD PCP - General Family Medicine 07/20/22 11/01/23 Sena Domniguez PA [address] [place] [address] [place] [address] PCP - BRADY Physician Senior Net Software Engineer 11/02/23 Levy Barry MD [address] [place] [address] [place] [address] PCP - General Family Medicine 12/20/23 documented as of this encounter
--- OUTSIDE RECORDS SUMMARY | 2025-07-26 15:25 | XMS_ITS | Encounter Summary ---
Author Organization [facility] work ([facility]) Address [address] [place] [address] Care Team Providers Care Summer Babysitter Name Role Phone Meme Steel MD Primary Care Provider [phone] Pcp, Pcp Primary Care Provider Unavailabl Guadalupe Bardales MD Primary Care Provider [phone] Sena Dominguez Unavailable [phone] Levy Barry MD Primary Care Provider Unavailab le Source Comments The information that you have received may contain highly confidential and/or federally protected health information. This information has been disclosed to you from records protected by [facility]. The law prohibits you from [...] Contact Info) Description 04/09/2009 Historical Note SVMG InforcePro System Devyn Vásquez MD [address] [place] [address] [phone] Social History Tobacco Use Types Packs/Day Years [...] CARRILLO - [facility] at [facility] [address] [facility] [address] [place] [phone] Brenda Clay MD [address] [facility] [address] [place] [phone] 04/15/2026 10:00 AM EDT Office Visit LEATHA [facility] at [facility] + [facility] [address] [facility] [address] [place] [address] Sena Dominguez PA [address] [facility] [place] [address] documented as of this encounter Visit Diagnoses Not on filedocumented in this encounter Care Teams Summer Babysitter Relationship Specialty Start Date End Date Meme Steel MD [address] [place] [address] 105 [place] [address] PCP - General Pediatrics 06/05/18 04/25/22 No Pcp, Pcp PCP - General 06/08/22 07/19/22 Guadalupe Mcbride MD PCP - General Family Medicine 07/20/22 11/01/23 Sena Dominguez PA [address] [place] [address] [place] [address] PCP - BRADY Physician Ticket Chopper Assembler 11/02/23 Levy Barry MD [address] [place] [address] [place] [address] PCP - General Family Medicine 12/20/23 documented as of this encounter
--- OUTSIDE RECORDS SUMMARY | 2025-07-26 15:25 | XMS_ITS | Encounter Summary ---
Author Organization [facility] work ([facility]) Address [address] [place] [address] Care Team Providers Care Division Engineer Name Role Phone Meme Steel MD Primary Care Provider [phone] Pcp, Pcp Primary Care Provider Unavailabl Guadalupe Bardales MD Primary Care Provider [phone] Sena Dominguez Unavailable [phone] Levy Barry MD Primary Care Provider Unavailab le Source Comments The information that you have received may contain highly confidential and/or federally protected health information. This information has been disclosed to you from records protected by [facility]. The law prohibits you [...] contact the sender immediately.[facility] ([facility]) Encounter Details Date Type Department Care Team (Late st Contact Info) Description 10/05/2015 Historical Note SVMG Borqs System Devyn Vásquez MD [address] [place] [address] [phone] Social History Tobacco Use Types Packs/Day Years [...] LEATHA CARRILLO - [facility] [address] [facility] [address] [place] [phone] Brenda Clay MD [address] [facility] [address] [place] [address] 04/15/2026 10:00 AM EDT Office Visit LEATHA [facility] + [facility] [address] [facility] [address] [place] [address] Sena Dominguez PA [address] [facility] [place] [address] documented as of this encounter Visit Diagnoses Not on filedocumented in this encounter Care Teams Division Engineer Relationship Specialty Start Date End Date Meme Steel MD [address] [place] [address] 105 [place] [address] PCP - General Pediatrics 06/05/18 04/25/22 No Pcp, Pcp PCP - General 06/08/22 07/19/22 uGadalupe Mcbride MD PCP - General Family Medicine 07/20/22 11/01/23 Sena Dominguez PA [address] [place] [address] [place] [address] PCP - BRADY Physician Sap Mobility Architect 11/02/23 Levy Barry MD [address] [place] [address] [place] [address] PCP - General Family Medicine 12/20/23 documented as of this encounter
--- OUTSIDE RECORDS SUMMARY | 2025-07-26 15:25 | XMS_ITS | Encounter Summary ---
Author Organization [facility] work ([facility]) Address [address] [place] [address] Care Team Providers Care Chemical Engineering Technician Name Role Phone Meme Steel MD Primary Care Provider [phone] Pcp, Pcp Primary Care Provider Unavailabl Guadalupe Bardales MD Primary Care Provider [phone] Sena Dominguez Unavailable [phone] Levy Barry MD Primary Care Provider Unavailab le Source Comments The information that you have received may contain highly confidential and/or federally protected health information. This information has been disclosed to you from records protected by [facility]. The law prohibits you from making any [...] information in error, please contact the sender immediately.[facility] ([facility]) Encounter Details Date Type Department Care Team (Late st Contact Info) Description 10/23/2009 Historical Note SVMG Algonomics System Devyn Vásquez MD [address] [place] [address] [phone] Social History Tobacco Use Types Packs/Day Years [...] CARRILLO - [facility] [address] [facility] [facility] [address] [place] [phone] Brenda Clay MD [address] [facility] [address] [place] [address] 04/15/2026 10:00 AM EDT Office Visit LE[facility]HA [facility] at [facility] + [facility] [address] [facility] [facility] [address] [place] [address] Sena Dominguez PA [address] [facility] [place] [address] documented as of this encounter Visit Diagnoses Not on filedocumented in this encounter Care Teams Chemical Engineering Technician Relationship Specialty Start Date End Date Meme Steel MD [address] [place] [address] 105 [place] [address] PCP - General Pediatrics 06/05/18 04/25/22 No Pcp, Pcp PCP - General 06/08/22 07/19/22 Guadalupe Mcbride MD PCP - General Family Medicine 07/20/22 11/01/23 Sena Dominguez PA [address] [place] [address] [place] [address] PCP - BRADY Physician Foundation Relations Manager 11/02/23 Levy Barry MD [address] [place] [address] [place] [address] PCP - General Family Medicine 12/20/23 documented as of this encounter
--- OUTSIDE RECORDS SUMMARY | 2025-07-26 15:25 | XMS_ITS | Encounter Summary ---
Author Organization [facility] work ([facility]) Address [address] [place] [address] Care Team Providers Care Decal Cutter Name Role Phone Meme Steel MD Primary Care Provider [phone] Pcp, Pcp Primary Care Provider Unavailabl Guadalupe Bardales MD Primary Care Provider [phone] Sena Dominguez Unavailable [phone] Levy Barry MD Primary Care Provider Unavailab le Source Comments The information that you have received may contain highly confidential and/or federally protected health information. This information has been disclosed to you from records protected by [facility]. The law prohibits you from making [...] information in error, please contact the sender immediately.[facility] ([facility]) Encounter Details Date Type Department Care Team (Late st Contact Info) Description 09/15/2015 Historical Note SVMG ShapeUp System Devyn Vásquez MD [address] [place] [address] [phone] Social History Tobacco Use Types Packs/Day Years [...] LEATHA CARRILLO - [facility] [address] [facility] [address] [place] [phone] Brenda Clay MD [address] [facility] [address] [place] [phone] 04/15/2026 10:00 AM EDT Office Visit LEATHA Primary [facility] at [facility] + [facility] [address] [facility] [address] [place] [address] Sena Dominguez PA [address] [facility] [place] [address] documented as of this encounter Visit Diagnoses Not on filedocumented in this encounter Care Teams Decal Cutter Relationship Specialty Start Date End Date Meme Steel MD [address] [place] [address] 105 [place] [address] PCP - General Pediatrics 06/05/18 04/25/22 No Pcp, Pcp PCP - General 06/08/22 07/19/22 Guadalupe Mcbride MD PCP - General Family Medicine 07/20/22 11/01/23 Sena Dominguez PA [address] [place] [address] [place] [address] PCP - BRADY Physician Manager Emergency Department 11/02/23 Levy Barry MD [address] [place] [address] [place] [address] PCP - General Family Medicine 12/20/23 documented as of this encounter
--- OUTSIDE RECORDS SUMMARY | 2025-07-26 15:25 | XMS_ITS | Encounter Summary ---
Author Organization [facility] work ([facility]) Address [address] [place] [address] Care Team Providers Care Home Energy Auditor Name Role Phone Meme Steel MD Primary Care Provider [phone] Pcp, Pcp Primary Care Provider Unavailabl Guadalupe Bardales MD Primary Care Provider [phone] Sena Dominguez Unavailable [phone] Levy Barry MD Primary Care Provider Unavailab le Source Comments The information that you have received may contain highly confidential and/or federally protected health information. This information has been disclosed to you from records protected by [facility]. The law prohibits you [...] information in error, please contact the sender immediately.[facility] ([facility]) Encounter Details Date Type Department Care Team (Late st Contact Info) Description 05/28/2015 Historical Note SVMG NaturVention System Devyn Vásquez MD [address] [place] [address] [phone] Social History Tobacco Use Types Packs/Day Years [...] LEATHA CARRILLO - [facility] [address] [facility] [address] [place] [phone] Brenda Clay MD [address] [facility] [address] [place] [address] 04/15/2026 10:00 AM EDT Office Visit LEATHA [facility] at [facility] + [facility] [address] [facility] [address] [place] [address] Sena Dominguez PA [address] [facility] [place] [address] documented as of this encounter Visit Diagnoses Not on filedocumented in this encounter Care Teams Home Energy Auditor Relationship Specialty Start Date End Date Meme Steel MD [address] [place] [address] 105 [place] [address] PCP - General Pediatrics 06/05/18 04/25/22 No Pcp, Pcp PCP - General 06/08/22 07/19/22 Guadalupe Mcbride MD PCP - General Family Medicine 07/20/22 11/01/23 Sena Dominguez PA [address] [place] [address] [place] [address] PCP - BRADY Physician Cardiopulmonary Technologist 11/02/23 Levy Barry MD [address] [place] [address] [place] [address] PCP - General Family Medicine 12/20/23 documented as of this encounter
--- OUTSIDE RECORDS SUMMARY | 2025-07-26 15:25 | XMS_ITS | Encounter Summary ---
Author Organization [facility] work ([facility]) Address [address] [place] [address] Care Team Providers Care Zipper Setter Lockstitch Name Role Phone Meme Steel MD Primary Care Provider [phone] Pcp, Pcp Primary Care Provider Unavailabl Guadalupe Bardales MD Primary Care Provider [phone] Sena Dominguez Unavailable [phone] Levy Barry MD Primary Care Provider Unavailab le Source Comments The information that you have received may contain highly confidential and/or federally protected health information. This information has been disclosed to you from records protected by [facility]. The law prohibits you from [...] please contact the sender immediately.[facility] ([facility]) Encounter Details Date Type Department Care Team (Late st Contact Info) Description 10/01/2008 Historical Note SVMG [employer] System Devyn Vásquez MD [address] [place] [address] [phone] Social History Tobacco Use Types Packs/Day Years [...] EST Office Visit LEATHA CARRILLO - [facility] [address] [facility] [address] [place] [phone] Brenda Clay MD 23[address] [facility] [address] [place] [address] 04/15/2026 10:00 AM EDT Office Visit LEATHA Primary [facility] at [facility] + [facility] [address] [facility] [address] [place] [address] Sena Dominguez PA [address] [facility] [place] [address] documented as of this encounter Visit Diagnoses Not on filedocumented in this encounter Care Teams Zipper Setter Lockstitch Relationship Specialty Start Date End Date Meme Steel MD [address] [place] [address] 105 [place] [address] PCP - General Pediatrics 06/05/18 04/25/22 No Pcp, Pcp PCP - General 06/08/22 07/19/22 Guadalupe Mcbride MD PCP - General Family Medicine 07/20/22 11/01/23 Sena Dominguez PA [address] [place] [address] [place] [address] PCP - BRADY Physician Guillotine Operator 11/02/23 Levy Barry MD [address] [place] [address] [place] [address] PCP - General Family Medicine 12/20/23 documented as of this encounter
--- OUTSIDE RECORDS SUMMARY | 2025-07-26 15:25 | XMS_ITS | Encounter Summary ---
Author Organization [facility] work ([facility]) Address [address] [place] [address] Care Team Providers Care Gynaecological Oncologist Name Role Phone Meme Steel MD Primary Care Provider [phone] Pcp, Pcp Primary Care Provider Unavailabl Guadalupe Bardales MD Primary Care Provider [phone] Sena Dominguez Unavailable [phone] Levy Barry MD Primary Care Provider Unavailab le Source Comments The information that you have received may contain highly confidential and/or federally protected health information. This information has been disclosed to you from records protected by [facility]. The law prohibits you [...] information in error, please contact the sender immediately.[facility] ([facility]) Encounter Details Date Type Department Care Team (Late st Contact Info) Description 10/27/2016 Historical Note SVMG Stella & Dot System Devyn Vásquez MD [address] [place] [address] [phone] Social History Tobacco Use Types Packs/Day Years [...] Visit LEATHA CARRILLO - [facility] [address] [facility] [address] [place] [phone] Brenda Clay MD [address] [facility] [address] [place] [phone] 04/15/2026 10:00 AM EDT Office Visit LEATHA Primary [facility] at [facility] + [facility] [address] [facility] [address] [place] [address] Sena Dominguez PA [address] [facility] [place] [address] documented as of this encounter Visit Diagnoses Not on filedocumented in this encounter Care Teams Gynaecological Oncologist Relationship Specialty Start Date End Date Meme Steel MD [address] [place] [address] [place] [address] PCP - General Pediatrics 06/05/18 04/25/22 No Pcp, Pcp PCP - General 06/08/22 07/19/22 Guadalupe Mcbride MD PCP - General Family Medicine 07/20/22 11/01/23 Sena Dominguez PA [address] [place] [address] [place] [address] PCP - BRADY Physician Supervisor Cutting And Sewing Room 11/02/23 Levy Barry MD [address] [place] [address] [place] [address] PCP - General Family Medicine 12/20/23 documented as of this encounter
--- OUTSIDE RECORDS SUMMARY | 2025-07-26 15:25 | XMS_ITS | Encounter Summary ---
Author Organization [facility] work ([facility]) Address [address] [place] [address] Care Team Providers Care Tmd Teacher Name Role Phone Meme Steel MD Primary Care Provider [phone] No Pcp, Pcp Primary Care Provider Unavailabl Guadalupe Bardales MD Primary Care Provider [phone] Sena Dominguez Unavailable [phone] Levy Barry MD Primary Care Provider Unavailab le Source Comments The information that you have received may contain highly confidential and/or federally protected health information. This information has been disclosed to you from records protected by [facility]. The law prohibits you [...] error, please contact the sender immediately.[facility] ([facility]) Encounter Details Date Type Department Care Team (Late st Contact Info) Description 2004 Historical Note SVMG [email or web address] System Devyn Vásquez MD [address] [place] [address] [phone] Social History Tobacco Use Types Packs/Day Years [...] CARRILLO - [facility] [address] [facility] [address] [place] [phone] Brenda Clay MD [address] [facility] [address] [place] [address] 04/15/2026 10:00 AM EDT Office Visit LEATHA Primary [facility] at [facility] + [facility] [address] [facility] [address] [place] [address] Sena Dominguez PA [address] [facility] [place] [address] documented as of this encounter Visit Diagnoses Not on filedocumented in this encounter Care Teams Tmd Teacher Relationship Specialty Start Date End Date Meme Steel MD [address] [place] [address] 105 [place] [address] PCP - General Pediatrics 06/05/18 04/25/22 No Pcp, Pcp PCP - General 06/08/22 07/19/22 Guadalupe Mcbride MD PCP - General Family Medicine 07/20/22 11/01/23 Sena Dominguez PA [address] [place] [address] [place] [address] PCP - BRADY Physician Gang Plank Workman 11/02/23 Levy Barry MD [address] [place] [address] [place] [address] PCP - General Family Medicine 12/20/23 documented as of this encounter
--- OUTSIDE RECORDS SUMMARY | 2025-07-26 15:25 | XMS_ITS | Encounter Summary ---
Author Organization [facility] work ([facility]) Address [address] [place] [address] Care Team Providers Care Hook And Eye Machine Operator Name Role Phone Meme Steel MD Primary Care Provider [phone] Pcp, Pcp Primary Care Provider Unavailabl Guadalupe Bardales MD Primary Care Provider [phone] Sena Dominguez Unavailable [phone] Levy Barry MD Primary Care Provider Unavailab le Source Comments The information that you have received may contain highly confidential and/or federally protected health information. This information has been disclosed to you from records protected by [facility]. The law prohibits [...] the sender immediately.[facility] ([facility]) Encounter Details Date Type Department Care Team (Late st Contact Info) Description 10/06/2015 Historical Note [facility] Flexcom System Devyn Vásquez MD [address] [place] [address] [phone] Social History Tobacco Use Types Packs/Day Years [...] LEATHA CARRILLO - [facility] [address] [place] [phone] Brenda Clay MD [address] [facility] [address] [place] [address] 04/15/2026 10:00 AM EDT Office Visit [facility]HA [facility] at [facility] + [facility] [address] [facility] [place] [address] Sena Dominguez PA [address] [facility] [facility] [place] [address] documented as of this encounter Visit Diagnoses Not on filedocumented in this encounter Care Teams Hook And Eye Machine Operator Relationship Specialty Start Date End Date Meme Steel MD [address] [place] [address] 105 [place] [address] PCP - General Pediatrics 06/05/18 04/25/22 No Pcp, Pcp PCP - General 06/08/22 07/19/22 Guadalupe Mcbride MD PCP - General Family Medicine 07/20/22 11/01/23 Sena Dominguez PA [address] [place] [address] [place] [address] PCP - BRADY Physician Ballet Company Artistic Director 11/02/23 Levy Barry MD [address] [place] [address] [place] [address] PCP - General Family Medicine 12/20/23 documented as of this encounter
--- OUTSIDE RECORDS SUMMARY | 2025-07-26 15:25 | XMS_ITS | Encounter Summary ---
Author Organization [facility] work ([facility]) Address [address] [place] [address] Care Team Providers Care Group Director Experience Name Role Phone Meme Steel MD Primary Care Provider No Pcp, Pcp Primary Care Provider Unavailabl Guadalupe Bardales MD Primary Care Provider [phone] Sena Dominguez Unavailable [phone] Levy Barry MD Primary Care Provider Unavailab le Source Comments The information that you have received may contain highly confidential and/or federally protected health information. This information has been disclosed to you from records protected by [facility]. The law prohibits you [...] please contact the sender immediately.[facility] ([facility]) Encounter Details Date Type Department Care Team (Late st Contact Info) Description 01/28/2005 Historical Note [facility] Narus System Devyn Vásquez MD [address] [place] [address] [phone] Social History Tobacco Use Types Packs/Day Years [...] Office Visit LEATHA CARRILLO - [facility] [address] [facility] [address] [place] [phone] Brenda Clay MD [address] [facility] [address] [place] [address] 04/15/2026 10:00 AM EDT Office Visit LEATHA Primary [facility] at [facility] + [facility] [address] [facility] [address] [place] [address] Sena Dominguez PA [address] [facility] [place] [address] documented as of this encounter Visit Diagnoses Not on filedocumented in this encounter Care Teams Group Director Experience Relationship Specialty Start Date End Date Meme Steel MD [address] [place] [address] 105 [place] [address] PCP - General Pediatrics 06/05/18 04/25/22 No Pcp, Pcp PCP - General 06/08/22 07/19/22 Guadalupe Mcbride MD PCP - General Family Medicine 07/20/22 11/01/23 Sena Dominguez PA [address] [place] [address] [place] [address] PCP - BRADY Physician Wash And Greaser 11/02/23 Levy Barry MD [address] [place] [address] [place] [address] PCP - General Family Medicine 12/20/23 documented as of this encounter
--- OUTSIDE RECORDS SUMMARY | 2025-07-26 15:25 | XMS_ITS | Encounter Summary ---
Author Organization [facility] work ([facility]) Address [address] [place] [address] Care Team Providers Care Sewer Inspector Name Role Phone Meme Steel MD Primary Care Provider [phone] Pcp, Pcp Primary Care Provider Unavailabl Guadalupe Bardales MD Primary Care Provider [phone] Sena Dominguez Unavailable [phone] Levy Barry MD Primary Care Provider Unavailab le Source Comments The information that you have received may contain highly confidential and/or federally protected health information. This information has been disclosed to you from records protected by [employer] [facility]. The law prohibits you [...] in error, please contact the sender immediately.[facility] ([facility]) Encounter Details Date Type Department Care Team (Late st Contact Info) Description 2004 Historical Note [facility] Calastone System Devyn Vásquez MD [address] [place] [address] [phone] Social History Tobacco Use Types Packs/Day Years [...] LEATHA CARRILLO - [facility] [address] [place] [phone] Brenda Clay MD [address] [facility] [address] [place] [address] 04/15/2026 10:00 AM EDT Office Visit LEATHA [facility] at [facility] + [facility] [address] [facility] [address] [place] [address] Sena Dominguez PA [address] [facility] [place] [address] documented as of this encounter Visit Diagnoses Not on filedocumented in this encounter Care Teams Sewer Inspector Relationship Specialty Start Date End Date Meme Steel MD [address] [place] [address] 105 [place] [address] PCP - General Pediatrics 06/05/18 04/25/22 No Pcp, Pcp PCP - General 06/08/22 07/19/22 Guadalupe Mcbride MD PCP - General Family Medicine 07/20/22 11/01/23 Sena Dominguez PA [address] [place] [address] [place] [address] PCP - BRADY Physician Starch And Prosize Mixer 11/02/23 Levy Barry MD [address] [place] [address] [place] [address] PCP - General Family Medicine 12/20/23 documented as of this encounter
--- OUTSIDE RECORDS SUMMARY | 2025-07-26 15:25 | XMS_ITS | Encounter Summary ---
Author Organization [facility] work ([facility]) Address [address] [place] [address] Care Team Providers Care Memorandum Statement Clerk Name Role Phone Meme Steel MD Primary Care Provider [phone] Pcp, Pcp Primary Care Provider Unavailabl Guadalupe Bardales MD Primary Care Provider [phone] Sena Dominguez Unavailable Levy Barry MD Primary Care Provider Unavailab le Source Comments The information that you have received may contain highly confidential and/or federally protected health information. This information has been disclosed to you from records protected by [facility]. The law prohibits you from making [...] sender immediately.[facility] ([facility]) Encounter Details Date Type Department Care Team (Late st Contact Info) Description 09/05/2008 Historical Note [facility] Business e via [place] System Devyn Vásquez MD [address] [place] [address] [phone] Social History Tobacco Use Types Packs/Day Years [...] Visit LEATHA CARRILLO - [facility] [address] [facility] [address] [place] [phone] Brenda Clay MD [address] [facility] [address] [place] [address] 04/15/2026 10:00 AM EDT Office Visit LEATHA [facility] at [facility] + [facility] [address] [facility] [address] [place] [address] Sena Dominguez PA [address] [facility] [place] [address] documented as of this encounter Visit Diagnoses Not on filedocumented in this encounter Care Teams Memorandum Statement Clerk Relationship Specialty Start Date End Date Meme Steel MD [address] [place] [address] 105 [place] [address] PCP - General Pediatrics 06/05/18 04/25/22 No Pcp, Pcp PCP - General 06/08/22 07/19/22 Guadalupe Mcbride MD PCP - General Family Medicine 07/20/22 11/01/23 Sena Dominguez PA [address] [place] [address] [place] [address] PCP - BRADY Physician Slot Machine Mechanic 11/02/23 Levy Barry MD [address] [place] [address] [place] [address] PCP - General Family Medicine 12/20/23 documented as of this encounter
--- OUTSIDE RECORDS SUMMARY | 2025-07-26 15:25 | XMS_ITS | Encounter Summary ---
Author Organization [facility] work ([facility]) Address [address] [place] [address] Care Team Providers Care Window Shade Cutter And Mounter Name Role Phone Meme Steel MD Primary Care Provider [phone] No Pcp, Pcp Primary Care Provider Unavailabl Guadalupe Bardales MD Primary Care Provider [phone] Sena Dominguez Unavailable [phone] Levy Barry MD Primary Care Provider Unavailab le Source Comments The information that you have received may contain highly confidential and/or federally protected health information. This information has been disclosed to you from records protected by [facility]. The law prohibits you [...] sender immediately.[facility] ([facility]) Encounter Details Date Type Department Care Team (Late st Contact Info) Description 02/07/2005 Historical Note [facility] mediafeedia System Devyn Vásquez MD [address] [place] [address] [phone] Social History Tobacco Use Types Packs/Day Years [...] CARRILLO - [facility] [address] [facility] [address] [place] [phone] Brenda Clay MD [address] [facility] [address] [place] [address] 04/15/2026 10:00 AM EDT Office Visit LEATHA Primary [facility] at [facility] + [facility] [address] [facility] [address] [place] [address] Sena Dominguez PA [address] [facility] [place] [address] documented as of this encounter Visit Diagnoses Not on filedocumented in this encounter Care Teams Window Shade Cutter And Mounter Relationship Specialty Start Date End Date Meme Steel MD [address] [place] [address] 105 [place] [address] PCP - General Pediatrics 06/05/18 04/25/22 No Pcp, Pcp PCP - General 06/08/22 07/19/22 Guadalupe Mcbride MD PCP - General Family Medicine 07/20/22 11/01/23 Sena Dominguez PA [address] [place] [address] [place] [address] PCP - BRADY Physician Airport Maintenance Laborer 11/02/23 Levy Barry MD [address] [place] [address] [place] [address] PCP - General Family Medicine 12/20/23 documented as of this encounter
--- OUTSIDE RECORDS SUMMARY | 2025-07-26 15:25 | XMS_ITS | Encounter Summary ---
Author Organization [facility] work ([facility]) Address [address] [place] [address] Care Team Providers Care Bumper Machine Operator Name Role Phone Meme Steel MD Primary Care Provider [phone] Pcp, Pcp Primary Care Provider Unavailabl Guadalupe Bardales MD Primary Care Provider [phone] Sena Dominguez Unavailable [phone] Levy Barry MD Primary Care Provider Unavailab le Source Comments The information that you have received may contain highly confidential and/or federally protected health information. This information has been disclosed to you from records protected by [facility]. The law prohibits you from making any [...] error, please contact the sender immediately.[facility] ([facility]) Encounter Details Date Type Department Care Team (Late st Contact Info) Description 04/12/2005 Historical Note [facility] Apangea Learning System Devyn Vásquez MD [address] [place] [address] [phone] Social History Tobacco Use Types Packs/Day Years [...] LEATHA CARRILLO - [facility] [address] [facility] [address] [place] [phone] Brenda Clay MD [address] [facility] [address] [place] [address] 04/15/2026 10:00 AM EDT Office Visit [facility]HA [facility] at [facility] [address] [facility] [address] [place] [address] Sena Dominguez PA [address] [facility] [place] [address] documented as of this encounter Visit Diagnoses Not on filedocumented in this encounter Care Teams Bumper Machine Operator Relationship Specialty Start Date End Date Meme Steel MD [address] [place] [address] [place] [address] PCP - General Pediatrics 06/05/18 04/25/22 No Pcp, Pcp PCP - General 06/08/22 07/19/22 Guadalupe Mcbride MD PCP - General Family Medicine 07/20/22 11/01/23 Sena Dominguez PA [address] [place] [address] [place] [address] PCP - BRADY Physician Labor Representative 11/02/23 Levy Barry MD [address] [place] [address] [place] [address] PCP - General Family Medicine 12/20/23 documented as of this encounter
--- OUTSIDE RECORDS SUMMARY | 2025-07-26 15:25 | XMS_ITS | Encounter Summary ---
Author Organization [facility] work ([facility]) Address [address] [place] [address] Care Team Providers Care Foreign Food Specialty Cook Name Role Phone Meme Steel MD Primary Care Provider [phone] Pcp, Pcp Primary Care Provider Unavailabl Guadalupe Bardales MD Primary Care Provider [phone] Sena Dominguez Unavailable [phone] Levy Barry MD Primary Care Provider Unavailab le Source Comments The information that you have received may contain highly confidential and/or federally protected health information. This information has been disclosed to you from records protected by [facility]. The law prohibits you from [...] contact the sender immediately.[facility] ([facility]) Encounter Details Date Type Department Care Team (Late st Contact Info) Description 01/26/2005 Historical Note [facility] Plutonium Paint System Devyn Vásquez MD [address] [place] [address] [phone] Social History Tobacco Use Types Packs/Day Years [...] LEATHA CARRILLO - [facility] [address] [facility] [address] [place] [phone] Brenda Clay MD [address] [facility] [address] [place] [address] 04/15/2026 10:00 AM EDT Office Visit LEATHA Primary [facility] at [facility] + [facility] [place] [address] [facility] [address] [place] [address] Sena Dominguez PA [address] [facility] [place] [address] documented as of this encounter Visit Diagnoses Not on filedocumented in this encounter Care Teams Foreign Food Specialty Cook Relationship Specialty Start Date End Date Meme Steel MD [address] [place] [address] 105 [place] [address] PCP - General Pediatrics 06/05/18 04/25/22 No Pcp, Pcp PCP - General 06/08/22 07/19/22 Guadalupe Mcbride MD PCP - General Family Medicine 07/20/22 11/01/23 Sena Dominguez PA [address] [place] [address] [place] [address] PCP - BRADY Physician Home Appliance Washing Machine Mechanic 11/02/23 Levy Barry MD [address] [place] [address] [place] [address] PCP - General Family Medicine 12/20/23 documented as of this encounter
--- OUTSIDE RECORDS SUMMARY | 2025-07-26 15:25 | XMS_ITS | Encounter Summary ---
Author Organization [facility] work ([facility]) Address [address] [place] [address] Care Team Providers Care Crawler Tractor Operator Name Role Phone Meme Steel MD Primary Care Provider [phone] Pcp, Pcp Primary Care Provider Unavailabl Guadalupe Bardales MD Primary Care Provider [phone] Sena Dominguez Unavailable Levy Barry MD Primary Care Provider Unavailab le Source Comments The information that you have received may contain highly confidential and/or federally protected health information. This information has been disclosed to you from records protected by [facility]. The law prohibits you from making [...] information in error, please contact the sender immediately.[facility] ([facility]) Encounter Details Date Type Department Care Team (Late st Contact Info) Description 01/26/2005 Historical Note [facility] Visedo System Devyn Vásquez MD [address] [place] [address] [phone] Social History Tobacco Use Types Packs/Day Years [...] EST Office Visit LEATHA CARRILLO - [facility] [address] [facility] [address] [place] [phone] Brenda Clay MD [address] [facility] [address] [place] [address] 04/15/2026 10:00 AM EDT Office Visit LEATHA Primary [facility] at [facility] + [facility] [place] [address] [facility] [address] [place] [address] Sena Dominguez PA [address] [facility] [place] [address] documented as of this encounter Visit Diagnoses Not on filedocumented in this encounter Care Teams Crawler Tractor Operator Relationship Specialty Start Date End Date Meme Steel MD [address] [place] [address] 105 [place] [address] PCP - General Pediatrics 06/05/18 04/25/22 No Pcp, Pcp PCP - General 06/08/22 07/19/22 Guadalupe Mcbride MD PCP - General Family Medicine 07/20/22 11/01/23 Sena Dominguez PA [address] [place] [address] [place] [address] PCP - BRADY Physician Forest Pathology Professor 11/02/23 Levy Barry MD [address] [place] [address] [place] [address] PCP - General Family Medicine 12/20/23 documented as of this encounter
--- OUTSIDE RECORDS SUMMARY | 2025-07-26 15:25 | XMS_ITS | Encounter Summary ---
Author Organization [facility] work ([facility]) Address [address] [place] [address] Care Team Providers Care Surface Ship Usw Supervisor Name Role Phone Meme Steel MD Primary Care Provider No Pcp, Pcp Primary Care Provider Unavailabl Guadalupe Bardales MD Primary Care Provider [phone] Sena Dominguez Unavailable Levy Barry MD Primary Care Provider Unavailab le Source Comments The information that you have received may contain highly confidential and/or federally protected health information. This information has been disclosed to you from records protected by [facility]. The law prohibits you [...] contact the sender immediately.[facility] ([facility]) Encounter Details Date Type Department Care Team (Late st Contact Info) Description 10/07/2015 Historical Note [facility] Service at Home System Devyn Vásquez MD [address] [place] [phone] Social History Tobacco Use Types Packs/Day Years [...] LEATHA CARRILLO - [facility] [address] [facility] [address] [place] [phone] Brenda Clay MD [address] [facility] [address] [place] [address] 04/15/2026 10:00 AM EDT Office Visit LEATHA Primary [facility] at [facility] + [facility] [address] [address] [place] [address] Sena Dominguez PA [address] [facility] [place] [address] documented as of this encounter Visit Diagnoses Not on filedocumented in this encounter Care Teams Surface Ship Usw Supervisor Relationship Specialty Start Date End Date Meme Steel MD [address] [place] [address] 105 [place] [address] PCP - General Pediatrics 06/05/18 04/25/22 No Pcp, Pcp PCP - General 06/08/22 07/19/22 Guadalupe Mcbride MD PCP - General Family Medicine 07/20/22 11/01/23 Sena Dominguez PA [address] [place] [address] [place] [address] PCP - BRADY Physician Medical Driver 11/02/23 Levy Barry MD [address] [place] [address] [place] [address] PCP - General Family Medicine 12/20/23 documented as of this encounter
--- OUTSIDE RECORDS SUMMARY | 2025-07-26 15:25 | XMS_ITS | Encounter Summary ---
Author Organization [facility] work ([facility]) Address [address] [place] [address] Care Team Providers Care Poacher Operator Name Role Phone Meme Steel MD Primary Care Provider [phone] No Pcp, Pcp Primary Care Provider Unavailabl Guadalupe Bardales MD Primary Care Provider [phone] Sena Dominguez Unavailable [phone] Levy Barry MD Primary Care Provider Unavailab le Source Comments The information that you have received may contain highly confidential and/or federally protected health information. This information has been disclosed to you from records protected by [facility]. The law prohibits you [...] the sender immediately.[facility] ([facility]) Encounter Details Date Type Department Care Team (Late st Contact Info) Description 10/05/2015 Historical Note [facility] [employer] System Devyn Vásquez MD [address] [place] [address] [phone] Social History Tobacco Use Types Packs/Day Years [...] Office Visit LEATHA CARRILLO - [facility] [address] [facility] [address] [place] [phone] Brenda Clay MD [address] [facility] [address] [place] [address] 04/15/2026 10:00 AM EDT Office Visit LE[facility]HA [facility] at [facility] + [facility] [address] [facility] [address] [place] [address] Sena Dominguez PA [address] [facility] [place] [address] documented as of this encounter Visit Diagnoses Not on filedocumented in this encounter Care Teams Poacher Operator Relationship Specialty Start Date End Date Meme Steel MD [address] [place] [address] 105 [place] [address] PCP - General Pediatrics 06/05/18 04/25/22 No Pcp, Pcp PCP - General 06/08/22 07/19/22 Guadalupe Mcbride MD PCP - General Family Medicine 07/20/22 11/01/23 Sena Dominguez PA [address] [place] [address] [place] [address] PCP - BRADY Physician Innersole Maker 11/02/23 Levy Barry MD [address] [place] [address] [place] [address] PCP - General Family Medicine 12/20/23 documented as of this encounter
--- OUTSIDE RECORDS SUMMARY | 2025-07-26 15:25 | XMS_ITS | Encounter Summary ---
Author Organization [facility] work ([facility]) Address [address] [place] [address] Care Team Providers Care Experimental Electronics Developer Name Role Phone Meme Steel MD Primary Care Provider [phone] No Pcp, Pcp Primary Care Provider Unavailabl Guadalupe Bardales MD Primary Care Provider [phone] Sena Dominguez Unavailable [phone] Levy Barry MD Primary Care Provider Unavailab le Source Comments The information that you have received may contain highly confidential and/or federally protected health information. This information has been disclosed to you from records protected by [employer]. The law [...] contact the sender immediately.[facility] ([facility]) Encounter Details Date Type Department Care Team (Late st Contact Info) Description 09/01/2016 Historical Note [facility] [employer] System Devyn Vásquez MD [address] [place] [address] [phone] Social History Tobacco Use Types Packs/Day Years [...] AM EST Office Visit LEATHA CARRILLO - [facility] at [facility] [address] [facility] [address] [facility] [address] [place] [phone] Brenda Clay MD [address] [facility] [address] [place] [phone] 04/15/2026 10:00 AM EDT Office Visit [facility] + [facility] [address] [place] [address] Sena Dominguez PA [address] [place] [address] documented as of this encounter Visit Diagnoses Not on filedocumented in this encounter Care Teams Experimental Electronics Developer Relationship Specialty Start Date End Date Meme Steel MD [address] [place] [address] [address] [place] [address] PCP - General Pediatrics 06/05/18 04/25/22 No Pcp, Pcp PCP - General 06/08/22 07/19/22 Guadalupe Mcbride MD PCP - General Family Medicine 07/20/22 11/01/23 Sena Dominguez PA [address] [place] [address] [place] [address] PCP - BRADY Physician Brick Tester 11/02/23 Levy Barry MD [address] [place] [address] [place] [address] PCP - General Family Medicine 12/20/23 documented as of this encounter
--- OUTSIDE RECORDS SUMMARY | 2025-07-26 15:25 | XMS_ITS | Encounter Summary ---
Author Organization [facility] work ([facility]) Address [address] [place] [address] Care Team Providers Care Box Sealing Machine Catcher Name Role Phone Meme Steel MD Primary Care Provider [phone] No Pcp, Pcp Primary Care Provider Unavailabl Guadalupe Bardales MD Primary Care Provider [phone] Sena Dominguez Unavailable [phone] Levy Barry MD Primary Care Provider Unavailab le Source Comments The information that you have received may contain highly confidential and/or federally protected health information. This information has been disclosed to you from records protected by [facility]. The law prohibits you from making [...] information in error, please contact the sender immediately.[facility] ([facility]) Encounter Details Date Type Department Care Team (Late st Contact Info) Description 04/08/2009 Historical Note [facility] [employer] System Devyn Vásquez MD [address] [place] [address] [id number] Social History Tobacco Use Types Packs/Day Years [...] CARRILLO - [facility] at [facility] [address] [facility] [address] [place] [phone] Brenda Clay MD [address] [facility] [address] [place] [phone] 04/15/2026 10:00 AM EDT Office Visit [facility] at [facility] + [facility] [address] [facility] [address] [place] [address] Sena Dominguez PA [address] [facility] [place] [address] documented as of this encounter Visit Diagnoses Not on filedocumented in this encounter Care Teams Box Sealing Machine Catcher Relationship Specialty Start Date End Date Meme Steel MD [address] [place] [address] [address] [place] [address] PCP - General Pediatrics 06/05/18 04/25/22 No Pcp, Pcp PCP - General 06/08/22 07/19/22 Guadalupe Mcbride MD PCP - General Family Medicine 07/20/22 11/01/23 Sena Dominguez PA [address] [place] [address] [place] [address] PCP - BRADY Physician Counter Person 11/02/23 Levy Barry MD [address] [place] [address] [place] [address] PCP - General Family Medicine 12/20/23 documented as of this encounter
--- OUTSIDE RECORDS SUMMARY | 2025-07-26 15:25 | XMS_ITS | Encounter Summary ---
Author Organization [facility] work ([facility]) Address [address] [place] [address] Care Team Providers Care Seat Joiner Name Role Phone Meme Steel MD Primary Care Provider [phone] No Pcp, Pcp Primary Care Provider Unavailabl Guadalupe Bardales MD Primary Care Provider [phone] Sena Dominguez Unavailable [phone] Levy Barry MD Primary Care Provider Unavailab le Source Comments The information that you have received may contain highly confidential and/or federally protected health information. This information has been disclosed to you from records protected by [facility]. The law prohibits you from making [...] sender immediately.[facility] ([facility]) Encounter Details Date Type Department Care Team (Late st Contact Info) Description 03/10/2009 Historical Note [facility] [employer] System Devyn Vásquez MD [address] [place] [address] [phone] Social History Tobacco Use Types Packs/Day Years [...] LEATHA CARRILLO - [facility] at [facility] [address] [facility] [address] [place] [phone] Brenda Clay MD [address] [facility] [address] [place] [phone] 04/15/2026 10:00 AM EDT Office Visit LEATHA [facility] at [facility] + [facility] [address] [place] [phone] Sena Dominguez PA [address] [facility] [place] [address] documented as of this encounter Visit Diagnoses Not on filedocumented in this encounter Care Teams Seat Joiner Relationship Specialty Start Date End Date Meme Steel MD [address] [place] [address] [address] [place] [address] PCP - General Pediatrics 06/05/18 04/25/22 No Pcp, Pcp PCP - General 06/08/22 07/19/22 Guadalupe Mcbride MD PCP - General Family Medicine 07/20/22 11/01/23 Sena Dominguez PA [address] [place] [address] [place] [address] PCP - BRADY Physician Security Field Supervisor 11/02/23 Levy Barry MD [address] [place] [address] [place] [address] PCP - General Family Medicine 12/20/23 documented as of this encounter
--- OUTSIDE RECORDS SUMMARY | 2025-07-26 15:25 | XMS_ITS | Encounter Summary ---
Author Organization [facility] work ([facility]) Address [address] [place] [address] Care Team Providers Care Tableau Architect Name Role Phone Meme Steel MD Primary Care Provider [phone] No Pcp, Pcp Primary Care Provider Unavailabl Guadalupe Bardales MD Primary Care Provider [phone] Sena Dominguez Unavailable Levy Barry MD Primary Care Provider Unavailab le Source Comments The information that you have received may contain highly confidential and/or federally protected health information. This information has been disclosed to you from records protected by [facility]. The law prohibits you from [...] please contact the sender immediately.[facility] ([facility]) Encounter Details Date Type Department Care Team (Late st Contact Info) Description 2004 Historical Note [facility] [employer] System Devyn Vásquez MD [address] [place] [address] [phone] Social History Tobacco Use Types Packs/Day Years [...] CARRILLO - [facility] at [facility] [address] [facility] [address] [place] [phone] Brenda Clay MD [address] [facility] [address] [place] [phone] 04/15/2026 10:00 AM EDT Office Visit LEATHA [facility] at [facility] + [facility] [address] [facility] [address] [place] [phone] Sena Dominguez PA [address] [facility] [place] [address] documented as of this encounter Visit Diagnoses Not on filedocumented in this encounter Care Teams Tableau Architect Relationship Specialty Start Date End Date Meme Steel MD [address] [place] [address] 105 [place] [address] PCP - General Pediatrics 06/05/18 04/25/22 No Pcp, Pcp PCP - General 06/08/22 07/19/22 Guadalupe Mcbride MD PCP - General Family Medicine 07/20/22 11/01/23 Sena Dominguez PA [address] [place] [address] [place] [address] PCP - BRADY Physician Transportation Equipment Painter 11/02/23 Levy Barry MD [address] [place] [address] [place] [address] PCP - General Family Medicine 12/20/23 documented as of this encounter
--- OUTSIDE RECORDS SUMMARY | 2025-07-26 15:25 | XMS_ITS | Encounter Summary ---
Author Organization [facility] work ([facility]) Address [address] [place] [address] Care Team Providers Care Cotton Agent Name Role Phone Meme Steel MD Primary Care Provider [phone] No Pcp, Pcp Primary Care Provider Unavailabl Guadalupe Bardales MD Primary Care Provider [phone] Sena Dominguez Unavailable [phone] Levy Barry MD Primary Care Provider Unavailab le Source Comments The information that you have received may contain highly confidential and/or federally protected health information. This information has been disclosed to you from records protected by [facility]. The law prohibits you from making [...] in error, please contact the sender immediately.[facility] ([facility]) Encounter Details Date Type Department Care Team (Late st Contact Info) Description 03/02/2005 Historical Note [facility] [employer] System Devyn Vásquez MD [address] [place] [address] [phone] Social History Tobacco Use Types Packs/Day Years [...] Visit LEATHA CARRILLO - [facility] [address] [facility] [address] [place] [phone] Brenda Clay MD [address] [facility] [address] [place] [phone] 04/15/2026 10:00 AM EDT Office Visit LE[facility]HA [facility] at [facility] + [facility] [address] [facility] [address] [place] [address] Sena Dominguez PA [address] [facility] [place] [address] documented as of this encounter Visit Diagnoses Not on filedocumented in this encounter Care Teams Cotton Agent Relationship Specialty Start Date End Date Meme Steel MD [address] [place] [address] 105 [place] [address] PCP - General Pediatrics 06/05/18 04/25/22 No Pcp, Pcp PCP - General 06/08/22 07/19/22 Guadalupe Mcbride MD PCP - General Family Medicine 07/20/22 11/01/23 Sena Dominguez PA [address] [place] [address] [place] [address] PCP - BRADY Physician Astronomy Instructor 11/02/23 Levy Barry MD [address] [place] [address] [place] [address] PCP - General Family Medicine 12/20/23 documented as of this encounter
--- OUTSIDE RECORDS SUMMARY | 2025-07-26 15:25 | XMS_ITS | Continuity of Care Document ---
Author Organization [facility]. Address [address] [place] [address] Phone [phone] Care Team Providers Care Pattern Painter Name Role Phone Guadalupe Mcbride MD Care Team Information Receiv er Unavailable ANA ROSA RAMOS M.D. Care Team Information Receiv er Unavailable Guadalupe Mcbride MD Primary Care Physician Unava ilable Allergies and adverse reactions Description No Known Drug Allergies Medications Active Medications SIG Qnty Indications Ordering Provider Date [id number] Tablets 1 by mouth every day 90tabs Ana Rosa Ramos M.D. 05/28/2024 OCP Unknown Barb Cwzxiro18aa Tablets Unknown Propranolol OMZ86sn Tablets Unknown Beanzcoyp3rg Tablets Unknown Vitamin D-325mcg (1000 Ut) Capsules Unknown Fluoxetine CDM52ap Capsules Unknown History Medications Wegovy0.25mg/0.5ML Solution Auto-Inject inject 0.25 mg weekly x 4 weeks 2ml Ana Rosa Ramos M.D. 03/25/2024 - 06/26/2024 Sertraline [id number] Tablets Un known - 06/26/2024 Results Test Acquired Date Facility Test Result H/L Range Note TSH 07/05/2025 [facility] (Use [facility]) [address] [facility] [place] [address] TSH 1.87 mIU/L Normal 1 T4, Free 07/05/2025 [facility] ([facility]) [address] [place] [address] [phone] T4, Free 1.3 ng/dL Normal 0.8-1.8 Vitamin D,25-Oh,Total,Ia 07/05/2025 [facility] ([facility]) [address] [place] [address] Vitamin D,25-Oh,Total,Ia 29 ng/mL Low 30-100 2 Enhanced PDF Report [id number] 07/05/2025 [facility] ([facility]) [address] [place] [address] Enhanced PDF Report [id number] PDF IMAGE OFF C-Peptide 04/03/2024 [facility] (Use [facility] Other [facility]) [address] [place] [address] C-Peptide 1.72 ng/mL Normal 0.80-3.8 5 3 Insulin 04/03/2024 [facility] (Use [facility] Other [facility]) [address] [address] Insulin 10.9 uIU/mL Normal 4 Basic Metabolic Panel 04/03/2024 [facility] (Use [facility] Other [facility]) [address] [address] Glucose 82 mg/dL Normal 65-99 5 Urea Nitrogen (BUN) 10 mg/dL Normal 7-20 Creatinine 0.58 mg/dL Normal 0.50-0.9 6 Egfr 134 mL/min/1. 73m2 Normal > Or = 60 BUN/Creatinine Ratio SEE NOTE: (calc) 6-22 6 Sodium 137 mmol/L Normal 135-146 Potassium 4.1 mmol/L Normal 3.8-5.1 Chloride 104 mmol/L Normal 98-110 Carbon Dioxide 25 mmol/L Normal 20-32 Calcium 8.9 mg/dL Normal 8.9-10.4 TSH 04/03/2024 [facility] ([facility]) [address] [place] [id number] TSH 4.14 mIU/L Normal 7 T4, Free 04/03/2024 [facility] (Use [facility] Other Sites) [address] [place] [address] T4, Free 1.1 ng/dL Normal 0.8-1.4 Thyroid Peroxidase And Thyroglobulin Abs 04/03/2024 [facility] (Use [facility] Other [facility]) [address] [place] [address] [phone] Thyroglobulin Antibodies 1 IU/mL Normal < or = 1 Thyroid Peroxidase Antibodies 61 IU/mL High <9 Tsi (Thyroid Stimulating Immunoglobulin) 04/03/2024 [facility] (Use [facility] Other Sites) [address] [place] [id number] Tsi (Thyroid Stimulating Immunoglobulin) <89 %baseline <140 8 PTH Intact And Calcium 04/03/2024 [facility] (Use [facility] Other Sites) [address] [place] [address] Parathyroid Hormone, Intact 68 pg/mL Normal 16-77 9 Calcium 9.1 mg/dL Normal 8.9-10.4 Vitamin D,25-Oh,Total,Ia 04/03/2024 [facility] (Use [facility] Other Sites) [address] [place] [address] Vitamin D,25-Oh,Total,Ia 39 ng/mL Normal 30-100 10 Albumin 04/03/2024 [facility] (Use [facility] Other Sites) [address] [place] [id number] Albumin 4.0 g/dL Normal 3.6-5.1 Clinical PDF Report [id number] 04/03/2024 [facility] (Use [facility] Other Sites) [address] [place] [id number] Clinical PDF Report [id number] PDF IMAGE OFF Enhanced PDF Report [id number] 04/03/2024 [facility] (Use [facility] Other Sites) [address] [place] [address] Enhanced PDF Report [id number] PDF IMAGE OFF 1 Reference Range > or = 20 Years 0.40-4.50 Ranges First trimester 0.26-2.66 Second trimester 0.55-2.73 Third trimester 0.43-2.91 2 Vitamin D Status 25 -OH Vitamin D: Deficiency: <20 ng/mL Insufficiency: 20 - 29 ng/mL Optimal: > or = 30 ng/mL For 25-OH Vitamin D testing on patients on D2-supplementation and patients for whom quantitation of D2 and D3 fractions is required, the [employer]D(TM) 25-OH VIT D, (D2,D3), LC/MS/MS is recommended: order code 42253 (patients >2yrs). See Note 1 Note 1 For additional information, please refer to http://education.[employer]/faq/FZS633 (This link is being provided for informational/ educational purposes only.) 3 FASTING:YES FASTING: YES 4 Reference Range < or = 18.4 Risk: Optimal < or = 18.4 Moderate NA High >18.4 Adult cardiovascular event risk category cut points (optimal, moderate, high) are based on Insulin Reference Interval studies performed at [facility] in 2021. 5 Fasting reference in terval 6 Not Reported: BUN an d Creatinine are within reference range. 7 Reference Range 1-19 Years 0.50-4.30 Ranges First trimester 0.26-2.66 Second trimester 0.55-2.73 Third trimester 0.43-2.91 8 Thyroid stimulating immunoglobulins (TSI) can engage the TSH receptors resulting in hyperthyroidism in Graves' disease patients. TSI levels can be useful in monitoring the clinical outcome of Graves' disease as well as assessing the potential for hyperthyroidism from maternal- transfer. TSI results greater than or equal to (>=) 140% of the Reference Control are considered positive. NOTE: A serum TSH level greater than 350 micro-International Units/mL can interfere with the TSI bioassay and potentially give false positive results. Patients who are and are suspected of having hyperthyroidism should have both TSI and human Chorionic Gonadotropin(hCG) tests measured. A serum hCG level greater than 40,625 mIU/mL can interfere with the TSI bioassay and may give false negative results. In these patients it is recommended that a second TSI be obtained when the hCG concentration falls below 40,625 mIU/mL (usually after approximately 20-weeks gestation). The analytical performance characteristics of this assay have been determined by [facility], [place], [place]. The modifications have not been cleared or approved by the FDA. This assay has been validated pursuant to the CLIA regulations and is used for clinical purposes. 9 Interpretive Guide I ntact PTH Calcium ------- Normal Parathyroid Normal Normal Hypoparathyroidism Low or Low Normal Low Hyperparathyroidism Primary Normal or High High Secondary High Normal or Low Tertiary High High Non-Parathyroid Hypercalcemia Low or Low Normal High 10 Vitamin D Status 25- OH Vitamin D: Deficiency: <20 ng/mL Insufficiency: 20 - 29 ng/mL Optimal: > or = 30 ng/mL For 25-OH Vitamin D testing on patients on D2-supplementation and patients for whom quantitation of D2 and D3 fractions is required, the QuestAssureD(TM) 25-OH VIT D, (D2,D3), LC/MS/MS is recommended: order code [id number] (patients >2yrs). See Note 1 Note 1 For additional information, please refer to http://education.[employer]/faq/WJQ254 (This link is being provided for informational/ educational purposes only.) Assessments Date Code Description Provider 12/04/2024 E06.3 Autoimmune thyroiditis Cheri Trejo PA-C 12/04/2024 E55.9 Vitamin D deficiency, unspec ified Courtney Trejo PA-C 12/04/2024 R94.6 Abnormal results of thyroid function studies Courtney Trejo PA-C 12/04/2024 R63.5 Abnormal weight gain Tamara Trejo PA-C 06/26/2024 E55.9 Vitamin D deficiency, unspec ified Courtney Trejo PA-C 06/26/2024 R94.6 Abnormal results of thyroid function studies Courtney Trejo PA-C 06/26/2024 R63.5 Abnormal weight gain Tamara Trejo PA-C 06/26/2024 E06.3 Autoimmune thyroiditis Cheri Trejo PA-C 03/25/2024 E55.9 Vitamin D deficiency, unspec ified Courtney Trejo PA-C 03/25/2024 R94.6 Abnormal results of thyroid function studies Courtney Trejo PA-C 03/25/2024 R63.5 Abnormal weight gain Tamara Trejo PA-C 11/21/2023 E55.9 Vitamin D deficiency, unspec ified Courtney Trejo PA-C Plan of Treatment Future Appointment(s):* 11/04/2025 11:20 am - Courtney Trejo PA-C at [facility] 12/04/2024 - Courtney Trejo PA-C* E06.3 Autoimmune thyroiditis * E55.9 Vitamin D deficiency, unspecified * R94.6 Abnormal results of thyroid function studies * R63.5 Abnormal weight gain * * Comments:* Hashimotos Cont Unithroid 25mcg Reviewed s/sxs of over/under replacement Repeat TFTs 6-8 weeks after taking thyroid medication consistently Vit D deficiency Cont vit D supplementation Vit D well on last check 04/05 Repeat bnv Weight Gain Weight stable from last visit Low CHO diet and exercise as tolerated Insurance denied Wegovy Call with any questions/concerns * Follow up:* 6 mo 06/26/2024 - Courtney Trejo PA-C* E55.9 Vitamin D deficiency, unspecified * R94.6 Abnormal results of thyroid function studies * R63.5 Abnormal weight gain * E06.3 Autoimmune thyroiditis * * Comments:* Vit D deficiency Cont vit D supplementation Vit D well on last check 04/05 Hashimotos Cont Unithroid 25mcg Reviewed s/sxs of over/under replacement Repeat TFTs 6-8 weeks after taking thyroid medication consistently Weight Gain Down 9lbs since last visit Low CHO diet and exercise as tolerated Insurance denied Wegovy Call with any questions/concerns * Follow up:* 6-8 mo 03/25/2024 - Courtney Trejo PA-C* E55.9 Vitamin D deficiency, unspecified * R94.6 Abnormal results of thyroid function studies * R63.5 Abnormal weight gain * * Comments:* Vit D deficiency Cont vit D supplementation Will repeat labs bnv Abnormal TFTs Will repeat TFTs and check ATAs Strong famhx of Mark's Weight Gain Lengthy discussion about weight gain and treatment Low CHO diet and exercise as tolerated Will check IR labs bnv Pt is interested in Wegovy. Reviewed proper use, potential SE, and titration schedule. Will start Wegovy 0.25mg once weekly Answered all questions to ptand mother's satisfaction Call with any questions/concerns * Follow up:* 3 mo 11/21/2023 - Courtney Trejo PA-C* E55.9 Vitamin D deficiency, unspecified *
--- OUTSIDE RECORDS SUMMARY | 2025-07-26 15:25 | XMS_ITS | Encounter Summary ---
Author Organization [facility] work ([facility]) Address [address] [place] [address] Care Team Providers Care Swim Instructor Name Role Phone Meme Steel MD Primary Care Provider [phone] No Pcp, Pcp Primary Care Provider Unavailabl Guadalupe Bardales MD Primary Care Provider [phone] Sena Dominguez Unavailable [phone] Levy Barry MD Primary Care Provider Unavailab le Source Comments The information that you have received may contain highly confidential and/or federally protected health information. This information has been disclosed to you from records protected by [facility]. The law prohibits you from [...] error, please contact the sender immediately.[facility] ([facility]) Encounter Details Date Type Department Care Team (Late st Contact Info) Description 03/31/2009 Historical Note [facility] An[employer] System Devyn Vásquez MD [address] [place] [address] [phone] Social History Tobacco Use Types Packs/Day Years [...] EST Office Visit LEATHA CARRILLO - [facility] at [facility] [address] [facility] [address] [place] [phone] Brenda Clay MD [address] [facility] [address] [place] [address] 04/15/2026 10:00 AM EDT Office Visit [facility] [address] [facility] [address] [place] [address] Sena Dominguez PA [address] [facility] [place] [address] documented as of this encounter Visit Diagnoses Not on filedocumented in this encounter Care Teams Swim Instructor Relationship Specialty Start Date End Date Meme Steel MD [address] [place] [address] 105 [place] [address] PCP - General Pediatrics 06/05/18 04/25/22 No Pcp, Pcp PCP - General 06/08/22 07/19/22 Guadalupe Mcbride MD PCP - General Family Medicine 07/20/22 11/01/23 Sena Dominguez PA [address] [place] [address] [place] [address] PCP - BRADY Physician Senior Business Manager 11/02/23 Levy Barry MD [address] [place] [address] [place] [address] PCP - General Family Medicine 12/20/23 documented as of this encounter
--- OUTSIDE RECORDS SUMMARY | 2025-07-26 15:25 | XMS_ITS | Encounter Summary ---
Author Organization [facility] work ([facility]) Address [address] [place] [address] Care Team Providers Care Offset Printing Operator Name Role Phone Meme Steel MD Primary Care Provider [phone] Pcp, Pcp Primary Care Provider Unavailabl Guadalupe Bardales MD Primary Care Provider [phone] Sena Dominguez Unavailable [phone] Levy Barry MD Primary Care Provider Unavailab le Source Comments The information that you have received may contain highly confidential and/or federally protected health information. This information has been disclosed to you from records protected by [facility]. The law prohibits you [...] error, please contact the sender immediately.[facility] ([facility]) Encounter Details Date Type Department Care Team (Late st Contact Info) Description 04/09/2009 Historical Note [facility] [employer] System Devyn Vásquez MD [address] [place] [place] [address] [phone] Social History Tobacco Use Types Packs/Day Years [...] Visit LEATHA CARRILLO - [facility] [address] [facility] [address] [place] [phone] Brenda Clay MD [address] [facility] [address] [place] [address] 04/15/2026 10:00 AM EDT Office Visit [facility]HA [facility] at [facility] + [facility] [address] [place] [address] Sena Dominguez PA [address] [facility] [place] [address] documented as of this encounter Visit Diagnoses Not on filedocumented in this encounter Care Teams Offset Printing Operator Relationship Specialty Start Date End Date Meme Steel MD [address] [place] [address] 105 [place] [address] PCP - General Pediatrics 06/05/18 04/25/22 No Pcp, Pcp PCP - General 06/08/22 07/19/22 Guadalupe Mcbride MD PCP - General Family Medicine 07/20/22 11/01/23 Sena Dominguez PA [address] [place] [address] [place] [address] PCP - BRADY Physician Line Pilot 11/02/23 Levy Baryr MD [address] [place] [address] [place] [address] PCP - General Family Medicine 12/20/23 documented as of this encounter
--- OUTSIDE RECORDS SUMMARY | 2025-07-26 15:25 | XMS_ITS | Encounter Summary ---
Author Organization [facility] work ([facility]) Address [address] [place] [address] Care Team Providers Care Generator Assembler Name Role Phone Meme Steel MD Primary Care Provider [phone] Pcp, Pcp Primary Care Provider Unavailabl Guadalupe Bardales MD Primary Care Provider Sena Dominguez Unavailable [phone] Levy Baryr MD Primary Care Provider Unavailab le Source Comments The information that you have received may contain highly confidential and/or federally protected health information. This information has been disclosed to you from records protected by [facility]. The law prohibits you from making [...] please contact the sender immediately.[facility] ([facility]) Encounter Details Date Type Department Care Team (Late st Contact Info) Description 2004 Historical Note [facility] M:Metrics System Devyn Vásquez MD [address] [place] [address] [phone] Social History Tobacco Use Types Packs/Day Years [...] AM EST Office Visit LEATHA CARRILLO - [facility] [address] [facility] [address] [place] [phone] Brenda Clay MD [address] [facility] [address] [place] [address] 04/15/2026 10:00 AM EDT Office Visit [facility]HA [facility] at [facility] + [facility] [address] [facility] [address] [place] [address] Sena Dominguez PA [address] [facility] [place] [address] documented as of this encounter Visit Diagnoses Not on filedocumented in this encounter Care Teams Generator Assembler Relationship Specialty Start Date End Date Meme Steel MD [address] [place] [address] 105 [place] [address] PCP - General Pediatrics 06/05/18 04/25/22 No Pcp, Pcp PCP - General 06/08/22 07/19/22 Guadalupe Mcbride MD PCP - General Family Medicine 07/20/22 11/01/23 Sena Dominguez PA [address] [place] [address] [place] [address] PCP - BRADY Physician Electric Motor Repairman 11/02/23 Levy Barry MD [address] [place] [address] [place] [address] PCP - General Family Medicine 12/20/23 documented as of this encounter
--- OUTSIDE RECORDS SUMMARY | 2025-07-26 15:25 | XMS_ITS | Encounter Summary ---
Author Organization [facility] work ([facility]) Address [address] [place] [address] Care Team Providers Care Senior Dot Net Developer Name Role Phone Meme Steel MD Primary Care Provider [phone] No Pcp, Pcp Primary Care Provider Unavailabl Guadalupe Bardales MD Primary Care Provider Sena Dominguez Unavailable [phone] Levy Barry MD Primary Care Provider Unavailab le Source Comments The information that you have received may contain highly confidential and/or federally protected health information. This information has been disclosed to you from records protected by [facility]. The law prohibits you from [...] information in error, please contact the sender immediately.[facility] ([facility]) Encounter Details Date Type Department Care Team (Late st Contact Info) Description 2004 Historical Note [facility] [employer] System Devyn Vásquez MD [address] [place] [address] [phone] Social History Tobacco Use Types Packs/Day Years [...] LEATHA CARRILLO - [facility] [address] [facility] [address] [facility] [address] [place] [phone] Brenda Clay MD [address] [facility] [address] [place] [address] 04/15/2026 10:00 AM EDT Office Visit LEATHA [facility] at [facility] + [facility] [address] [facility] [address] [place] [address] Sena Dominguez PA [address] [facility] [place] [address] documented as of this encounter Visit Diagnoses Not on filedocumented in this encounter Care Teams Senior Dot Net Developer Relationship Specialty Start Date End Date Meme Steel MD [address] [place] [address] 105 [place] [address] PCP - General Pediatrics 06/05/18 04/25/22 No Pcp, Pcp PCP - General 06/08/22 07/19/22 Guadalupe Mcbride MD PCP - General Family Medicine 07/20/22 11/01/23 Sena Dominguez PA [address] [place] [address] [place] [address] PCP - BRADY Physician Cement Mason 11/02/23 Levy Barry MD [address] [place] [address] [place] [address] PCP - General Family Medicine 12/20/23 documented as of this encounter
--- OUTSIDE RECORDS SUMMARY | 2025-07-26 15:25 | XMS_ITS | Encounter Summary ---
Author Organization [facility] work ([facility]) Address [address] [place] [address] Care Team Providers Care Family And Consumer Science Professor Name Role Phone Meme Steel MD Primary Care Provider [phone] Pcp, Pcp Primary Care Provider Unavailabl Guadalupe Bardales MD Primary Care Provider [phone] Sena Dominguez Unavailable [phone] Levy Barry MD Primary Care Provider Unavailab le Source Comments The information that you have received may contain highly confidential and/or federally protected health information. This information has been disclosed to you from records protected by [facility]. The law prohibits you [...] the sender immediately.[facility] ([facility]) Encounter Details Date Type Department Care Team (Late st Contact Info) Description 02/06/2010 Historical Note [facility] [employer]anta System Devyn Vásquez MD [address] [place] [address] [phone] Social History Tobacco Use Types Packs/Day Years [...] AM EST Office Visit LEATHA CARRILLO - [facility] [address] [facility] [address] [place] [phone] Brenda Clay MD [address] [facility] [address] [place] [address] 04/15/2026 10:00 AM EDT Office Visit [facility]HA [facility] at [facility] + [facility] [address] [facility] [address] [place] [address] Sena Dominguez PA [address] [facility] [place] [address] documented as of this encounter Visit Diagnoses Not on filedocumented in this encounter Care Teams Family And Consumer Science Professor Relationship Specialty Start Date End Date Meme Steel MD [address] [place] [address] 105 [place] [address] PCP - General Pediatrics 06/05/18 04/25/22 No Pcp, Pcp PCP - General 06/08/22 07/19/22 Guadalupe Mcbride MD PCP - General Family Medicine 07/20/22 11/01/23 Sena Dominguez PA [address] [place] [address] [place] [address] PCP - BRADY Physician Mate Chief 11/02/23 Levy Barry MD [address] [place] [address] [place] [address] PCP - General Family Medicine 12/20/23 documented as of this encounter
--- OUTSIDE RECORDS SUMMARY | 2025-07-26 15:25 | XMS_ITS | Encounter Summary ---
Author Organization [facility] work ([facility]) Address [address] [place] [address] Care Team Providers Care Cosmetics And Toiletries Salesperson Name Role Phone Meme Steel MD Primary Care Provider [phone] Pcp, Pcp Primary Care Provider Unavailabl Guadalupe Bardales MD Primary Care Provider [phone] Sena Dominguez Unavailable [phone] Levy Barry MD Primary Care Provider Unavailab le Source Comments The information that you have received may contain highly confidential and/or federally protected health information. This information has been disclosed to you from records protected by [facility]. The law [...] contact the sender immediately.[facility] ([facility]) Encounter Details Date Type Department Care Team (Late st Contact Info) Description 08/30/2005 Historical Note [facility] [employer]enthouse System Devyn Vásquez MD [address] [place] [address] [phone] Social History Tobacco Use Types Packs/Day Years [...] CARRILLO - [facility] [address] [facility] [address] [place] [phone] Brenda Clay MD [address] [facility] [address] [place] [address] 04/15/2026 10:00 AM EDT Office Visit LEATHA [facility] at [facility] + [facility] [address] [facility] [address] [place] [address] Sena Dominguez PA [address] [facility] [place] [address] documented as of this encounter Visit Diagnoses Not on filedocumented in this encounter Care Teams Cosmetics And Toiletries Salesperson Relationship Specialty Start Date End Date Meme Steel MD [address] [place] [address] 105 [place] [address] PCP - General Pediatrics 06/05/18 04/25/22 No Pcp, Pcp PCP - General 06/08/22 07/19/22 Guadalupe Mcbride MD PCP - General Family Medicine 07/20/22 11/01/23 Sena Dominguez PA [address] [place] [address] [place] [address] PCP - BRADY Physician Tire Worker 11/02/23 Levy Barry MD [address] [place] [address] [place] [address] PCP - General Family Medicine 12/20/23 documented as of this encounter
--- OUTSIDE RECORDS SUMMARY | 2025-07-26 15:25 | XMS_ITS | Encounter Summary ---
Author Organization [facility] work ([facility]) Address [address] [place] [address] Care Team Providers Care Customer Engagement Analyst Name Role Phone Meme Steel MD Primary Care Provider [phone] No Pcp, Pcp Primary Care Provider Unavailabl Guadalupe Bardales MD Primary Care Provider [phone] Sena Dominguez Unavailable [phone] Levy Barry MD Primary Care Provider Unavailab le Source Comments The information that you have received may contain highly confidential and/or federally protected health information. This information has been disclosed to you from records protected by [facility]. The law prohibits you from making [...] contact the sender immediately.[facility] [address] ([facility]) Encounter Details Date Type Department Care Team (Late st Contact Info) Description 06/24/2005 Historical Note [facility] [employer]ar[employer] System Devyn Vásquez MD [address] [place] [address] [phone] Social History Tobacco Use Types Packs/Day Years [...] EST Office Visit LEATHA CARRILLO - [facility] [address] [facility] [address] [place] [phone] Brenda Clay MD [address] [facility] [address] [place] [address] 04/15/2026 10:00 AM EDT Office Visit LEATHA [facility] at [facility] + [facility] [address] [facility] [address] [place] [address] Sena Dominguez PA [address] [facility] [place] [address] documented as of this encounter Visit Diagnoses Not on filedocumented in this encounter Care Teams Customer Engagement Analyst Relationship Specialty Start Date End Date Meme Steel MD [address] [place] [address] 105 [place] [address] PCP - General Pediatrics 06/05/18 04/25/22 No Pcp, Pcp PCP - General 06/08/22 07/19/22 Guadalupe Mcbride MD PCP - General Family Medicine 07/20/22 11/01/23 Sena Dominguez PA [address] [place] [address] [place] [address] PCP - BRADY Physician Central Supply Technician Supervisor 11/02/23 Levy Barry MD [address] [place] [address] [place] [address] PCP - General Family Medicine 12/20/23 documented as of this encounter
--- OUTSIDE RECORDS SUMMARY | 2025-07-26 15:25 | XMS_ITS | Encounter Summary ---
Author Organization [facility] work ([facility]) Address [address] [place] [address] Care Team Providers Care Apprenticeship Consultant Name Role Phone Meme Steel MD Primary Care Provider [phone] No Pcp, Pcp Primary Care Provider Unavailabl Guadalupe Bardales MD Primary Care Provider [phone] Sena Dominguez Unavailable [phone] Levy Barry MD Primary Care Provider Unavailab le Source Comments The information that you have received may contain highly confidential and/or federally protected health information. This information has been disclosed to you from records protected by [facility]. The law prohibits you from [...] in error, please contact the sender immediately.[facility] ([facility]) Encounter Details Date Type Department Care Team (Late st Contact Info) Description 10/05/2015 Historical Note [facility] [employer] System Devyn Vásquez MD [address] [place] [address] [phone] Social History Tobacco Use Types Packs/Day Years [...] CARRILLO - [facility] at [facility] [address] [facility] [address] [place] [phone] Brenda Clay MD [address] [facility] [address] [place] [phone] 04/15/2026 10:00 AM EDT Office Visit LEATHA [facility] at [facility] + [facility] [address] [facility] [address] [place] [address] Sena Dominguez PA [address] [facility] [place] [address] documented as of this encounter Visit Diagnoses Not on filedocumented in this encounter Care Teams Apprenticeship Consultant Relationship Specialty Start Date End Date Meme Steel MD [address] [place] [address] [place] [address] PCP - General Pediatrics 06/05/18 04/25/22 No Pcp, Pcp PCP - General 06/08/22 07/19/22 Guadalupe Mcbride MD PCP - General Family Medicine 07/20/22 11/01/23 Sena Dominguez PA [address] [place] [address] [place] [address] PCP - BRADY Physician Retail Sales Associate Bilingual 11/02/23 Levy Barry MD [address] [place] [address] [place] [address] PCP - General Family Medicine 12/20/23 documented as of this encounter
--- OUTSIDE RECORDS SUMMARY | 2025-07-26 15:25 | XMS_ITS | Encounter Summary ---
Author Organization [facility] work ([facility]) Address [address] [place] [address] Care Team Providers Care Coding Compliance Specialist Name Role Phone Meme Steel MD Primary Care Provider [phone] No Pcp, Pcp Primary Care Provider Unavailabl Guadalupe Bardales MD Primary Care Provider [phone] Sena Dominguez Unavailable Levy Barry MD Primary Care Provider Unavailab le Source Comments The information that you have received may contain highly confidential and/or federally protected health information. This information has been disclosed to you from records protected by [facility]. The law prohibits you from making [...] contact the sender immediately.[facility] ([facility]) Encounter Details Date Type Department Care Team (Late st Contact Info) Description 2004 Historical Note [facility] Knok System Devyn Vásquez MD [address] [place] [address] [phone] Social History Tobacco Use Types Packs/Day Years [...] LEATHA CARRILLO - [facility] [address] [facility] [address] [place] [phone] Brenda Clay MD [address] [facility] [address] [place] [address] 04/15/2026 10:00 AM EDT Office Visit LEATHA [facility] at [facility] + [facility] [address] [facility] [address] [place] [address] Sena Dominguez PA [address] [facility] [place] [address] documented as of this encounter Visit Diagnoses Not on filedocumented in this encounter Care Teams Coding Compliance Specialist Relationship Specialty Start Date End Date Meme Steel MD [address] [place] [address] 105 [place] [address] PCP - General Pediatrics 06/05/18 04/25/22 No Pcp, Pcp PCP - General 06/08/22 07/19/22 Guadalupe Mcbride MD PCP - General Family Medicine 07/20/22 11/01/23 Sena Dominguez PA [address] [place] [address] [place] [address] PCP - BRADY Physician Caterer'S Aide 11/02/23 Levy Barry MD [address] [place] [address] [place] [address] PCP - General Family Medicine 12/20/23 documented as of this encounter
--- OUTSIDE RECORDS SUMMARY | 2025-07-26 15:25 | XMS_ITS | Encounter Summary ---
Author Organization [facility] work ([facility]) Address [address] [place] [address] Care Team Providers Care Emergency Vehicle Technician Name Role Phone Meme Steel MD Primary Care Provider [phone] Pcp, Pcp Primary Care Provider Unavailabl Guadalupe Bardales MD Primary Care Provider [phone] Sena Dominguez Unavailable [phone] Levy Barry MD Primary Care Provider Unavailab le Source Comments The information that you have received may contain highly confidential and/or federally protected health information. This information has been disclosed to you from records protected by [facility]. The law prohibits you from making [...] the sender immediately.[facility] ([facility]) Encounter Details Date Type Department Care Team (Late st Contact Info) Description 08/17/2010 Historical Note [facility] [employer] System Devyn Vásquez MD [address] [place] [address] [phone] Social History Tobacco Use Types Packs/Day Years [...] - [facility] [address] [facility] [address] [place] [phone] Brenda Clay MD [address] [facility] [address] [place] [phone] 04/15/2026 10:00 AM EDT Office Visit LE[facility]HA [facility] at [facility] + [facility] [address] [facility] [address] [place] [address] Sena Dominguez PA [address] [facility] [place] [address] documented as of this encounter Visit Diagnoses Not on filedocumented in this encounter Care Teams Emergency Vehicle Technician Relationship Specialty Start Date End Date Meme Steel MD [address] [place] [address] 105 [place] [address] PCP - General Pediatrics 06/05/18 04/25/22 No Pcp, Pcp PCP - General 06/08/22 07/19/22 Guadalupe Mcbride MD PCP - General Family Medicine 07/20/22 11/01/23 Sena Dominguez PA [address] [place] [address] [place] [address] PCP - BRADY Physician Managing Editor 11/02/23 Levy Barry MD [address] [place] [address] [place] [address] PCP - General Family Medicine 12/20/23 documented as of this encounter
--- OUTSIDE RECORDS SUMMARY | 2025-07-26 15:25 | XMS_ITS | Encounter Summary ---
Author Organization [facility] work ([facility]) Address [address] [facility] [address] [facility] [address] [place] [address] Care Team Providers Care Fare Enforcement Officer Name Role Phone Meme Steel MD Primary Care Provider [phone] Pcp, Pcp Primary Care Provider Unavailabl Guadalupe Bardales MD Primary Care Provider [phone] Sena Dominguez Unavailable Levy Barry MD Primary Care Provider Unavailab le Source Comments The information that you have received may contain highly confidential and/or federally protected health information. This information has been disclosed to you from records protected by [facility]. The law prohibits you from making [...] error, please contact the sender immediately.[facility] ([facility]) Encounter Details Date Type Department Care Team (Late st Contact Info) Description 03/10/2009 Historical Note [facility] Aud[employer] System Devyn Vásquez MD [address] [place] [address] [phone] Social History Tobacco Use Types Packs/Day Years [...] EST Office Visit LEATHA CARRILLO - [facility] at [facility] [address] [facility] [address] [place] [phone] Brenda Clay MD [address] [facility] [place] [address] [place] [address] 04/15/2026 10:00 AM EDT Office Visit [facility]HA [facility] at [facility] [address] [facility] [address] [place] [address] Sena Dominguez PA [address] [facility] [place] [address] documented as of this encounter Visit Diagnoses Not on filedocumented in this encounter Care Teams Fare Enforcement Officer Relationship Specialty Start Date End Date Meme Steel MD [address] [place] [address] 105 [place] [address] PCP - General Pediatrics 06/05/18 04/25/22 No Pcp, Pcp PCP - General 06/08/22 07/19/22 Guadalupe Mcbride MD PCP - General Family Medicine 07/20/22 11/01/23 Sena Dominguez PA [address] [place] [address] [place] [address] PCP - BRADY Physician Face Hardener 11/02/23 Levy Barry MD [address] [place] [address] [place] [address] PCP - General Family Medicine 12/20/23 documented as of this encounter
--- OUTSIDE RECORDS SUMMARY | 2025-07-26 15:25 | XMS_ITS | Encounter Summary ---
Author Organization [facility] work ([facility]) Address [address] [place] [address] Care Team Providers Care Bulk Plant Manager Name Role Phone Meme Steel MD Primary Care Provider [phone] Pcp, Pcp Primary Care Provider Unavailabl Guadalupe Bardales MD Primary Care Provider [phone] Sena Dominguez Unavailable [phone] Levy Barry MD Primary Care Provider Unavailab le Source Comments The information that you have received may contain highly confidential and/or federally protected health information. This information has been disclosed to you from records protected by [facility]. The law prohibits you [...] in error, please contact the sender immediately.[facility] ([facility]) Encounter Details Date Type Department Care Team (Late st Contact Info) Description 10/02/2008 Historical Note [facility] Endoart System Devyn Vásquez MD [address] [place] [address] [phone] Social History Tobacco Use Types Packs/Day Years [...] [facility] [address] [facility] [address] [place] [phone] Brenda Clay MD [address] [facility] [place] [address] [place] [address] 04/15/2026 10:00 AM EDT Office Visit LEATHA [facility] at [facility] [address] [facility] [address] [place] [address] Sena Dominguez PA [address] [facility] [place] [address] documented as of this encounter Visit Diagnoses Not on filedocumented in this encounter Care Teams Bulk Plant Manager Relationship Specialty Start Date End Date Meme Steel MD [address] [place] [address] 105 [place] [address] PCP - General Pediatrics 06/05/18 04/25/22 No Pcp, Pcp PCP - General 06/08/22 07/19/22 Guadalupe Mcbride MD PCP - General Family Medicine 07/20/22 11/01/23 Sena Dominguez PA [address] [place] [address] [place] [address] PCP - BRADY Physician Flask Pusher 11/02/23 Levy Barry MD [address] [place] [address] [place] [address] PCP - General Family Medicine 12/20/23 documented as of this encounter
--- OUTSIDE RECORDS SUMMARY | 2025-07-26 15:25 | XMS_ITS | Encounter Summary ---
Author Organization [facility] work ([facility]) Address [address] [place] [address] Care Team Providers Care Gasket Inspector Name Role Phone Meme Steel MD Primary Care Provider [phone] Pcp, Pcp Primary Care Provider Unavailabl Guadalupe Bardales MD Primary Care Provider [phone] Sena Dominguez Unavailable [phone] Levy Barry MD Primary Care Provider Unavailab le Source Comments The information that you have received may contain highly confidential and/or federally protected health information. This information has been disclosed to you from records protected by [facility]. The law prohibits you from [...] the sender immediately.[facility] ([facility]) Encounter Details Date Type Department Care Team (Late st Contact Info) Description 11/27/2015 Historical Note [facility] [employer] System Devyn Vásquez MD [address] [place] [address] [phone] Social History Tobacco Use Types Packs/Day Years [...] AM EST Office Visit LEATHA CARRILLO - [facility] at [facility] [address] [facility] [address] [place] [phone] Brenda Clay MD [address] [facility] [place] [address] [place] [phone] 04/15/2026 10:00 AM EDT Office Visit LEATHA [facility] at [facility] + [facility] [address] [place] [address] Sena Dominguez PA [address] [facility] [place] [address] documented as of this encounter Visit Diagnoses Not on filedocumented in this encounter Care Teams Gasket Inspector Relationship Specialty Start Date End Date Meme Steel MD [address] [place] [address] 105 [place] [address] PCP - General Pediatrics 06/05/18 04/25/22 No Pcp, Pcp PCP - General 06/08/22 07/19/22 Guadalupe Mcbride MD PCP - General Family Medicine 07/20/22 11/01/23 Sena Dominguez PA [address] [place] [address] [place] [address] PCP - RBADY Physician Hand Blocker 11/02/23 Levy Barry MD [address] [place] [address] [place] [address] PCP - General Family Medicine 12/20/23 documented as of this encounter
--- OUTSIDE RECORDS SUMMARY | 2025-07-26 15:25 | XMS_ITS | Encounter Summary ---
Author Organization [facility] work ([facility]) Address [address] [place] [address] Care Team Providers Care Assembler Motor Vehicle Name Role Phone Meme Steel MD Primary Care Provider [phone] Pcp, Pcp Primary Care Provider Unavailabl Guadalupe Bardales MD Primary Care Provider [phone] Sena Dominguez Unavailable [phone] Levy Barry MD Primary Care Provider Unavailab le Source Comments The information that you have received may contain highly confidential and/or federally protected health information. This information has been disclosed to you from records protected by [employer]. The law prohibits you [...] contact the sender immediately.[facility] ([facility]) Encounter Details Date Type Department Care Team (Late st Contact Info) Description 08/17/2008 Historical Note [facility] Dokkank[employer] System Devyn Vásquez MD [address] [place] [address] [phone] Social History Tobacco Use Types Packs/Day Years [...] CARRILLO - [facility] at [facility] [address] [facility] [address] [place] [phone] Brenda Clay MD [address] [facility] [place] [address] [place] [address] 04/15/2026 10:00 AM EDT Office Visit LEATHA [facility] at [facility] + [facility] [address] [facility] [address] [place] [address] Sena Dominguez PA [address] [facility] [place] [address] documented as of this encounter Visit Diagnoses Not on filedocumented in this encounter Care Teams Assembler Motor Vehicle Relationship Specialty Start Date End Date Meme Steel MD [address] [place] [address] 105 [place] [address] PCP - General Pediatrics 06/05/18 04/25/22 No Pcp, Pcp PCP - General 06/08/22 07/19/22 Guadalupe Mcbride MD PCP - General Family Medicine 07/20/22 11/01/23 Sena Dominguez PA [address] [place] [address] [place] [address] PCP - BRADY Physician Family Court Registrar 11/02/23 Levy Barry MD [address] [place] [address] [place] [address] PCP - General Family Medicine 12/20/23 documented as of this encounter
--- OUTSIDE RECORDS SUMMARY | 2025-07-26 15:25 | XMS_ITS | Encounter Summary ---
Author Organization [facility] work ([facility]) Address [address] [place] [address] Care Team Providers Care Account Coordinator Name Role Phone Meme Steel MD Primary Care Provider [phone] No Pcp, Pcp Primary Care Provider Unavailabl Guadalupe Bardales MD Primary Care Provider [phone] Sena Dominguez Unavailable [phone] Levy Barry MD Primary Care Provider Unavailab le Source Comments The information that you have received may contain highly confidential and/or federally protected health information. This information has been disclosed to you from records protected by [facility]. The law prohibits you from [...] contact the sender immediately.[facility] ([facility]) Encounter Details Date Type Department Care Team (Late st Contact Info) Description 01/16/2017 Historical Note [facility] [employer] System Devyn Vásquez MD [address] [place] [address] [phone] Social History Tobacco Use Types Packs/Day Years [...] EST Office Visit LEATHA CARRILLO - [facility] [address] [facility] [address] [place] [phone] Brenda Clay MD [address] [facility] [place] [address] [place] [address] 04/15/2026 10:00 AM EDT Office Visit LEATHA [facility] at [facility] + [facility] [address] [facility] [address] [place] [address] Sena Dominguez PA [address] [facility] [place] [address] documented as of this encounter Visit Diagnoses Not on filedocumented in this encounter Care Teams Account Coordinator Relationship Specialty Start Date End Date Meme Steel MD [address] [place] [address] 105 [place] [address] PCP - General Pediatrics 06/05/18 04/25/22 No Pcp, Pcp PCP - General 06/08/22 07/19/22 Guadalupe Mcbride MD PCP - General Family Medicine 07/20/22 11/01/23 Sena Dominguez PA [address] [place] [address] [place] [address] PCP - BRADY Physician Director Media 11/02/23 Levy Barry MD [address] [place] [address] [place] [address] PCP - General Family Medicine 12/20/23 documented as of this encounter
--- OUTSIDE RECORDS SUMMARY | 2025-07-26 15:25 | XMS_ITS | Encounter Summary ---
Author Organization [facility] work ([facility]) Address [address] [place] [address] Care Team Providers Care Content Analyst Name Role Phone Meme Steel MD Primary Care Provider [phone] No Pcp, Pcp Primary Care Provider Unavailabl Guadalupe Bardales MD Primary Care Provider [phone] Sena Dominguez Unavailable [phone] Levy Barry MD Primary Care Provider Unavailab le Source Comments The information that you have received may contain highly confidential and/or federally protected health information. This information has been disclosed to you from records protected by [facility]. The law prohibits you from [...] please contact the sender immediately.[facility] ([facility]) Encounter Details Date Type Department Care Team (Late st Contact Info) Description 12/31/2015 Historical Note [facility] Film[employer] System Devyn Vásquez MD [address] [place] [address] [phone] Social History Tobacco Use Types Packs/Day Years [...] LEATHA CARRILLO - [facility] [address] [facility] [address] [place] [phone] Brenda Clay MD [address] [facility] [place] [address] [place] [address] 04/15/2026 10:00 AM EDT Office Visit LEATHA [facility] at [facility] + [facility] [address] [facility] [address] [place] [address] Sena Dominguez PA [address] [facility] [place] [address] documented as of this encounter Visit Diagnoses Not on filedocumented in this encounter Care Teams Content Analyst Relationship Specialty Start Date End Date Meme Steel MD [address] [place] [address] 105 [place] [address] PCP - General Pediatrics 06/05/18 04/25/22 No Pcp, Pcp PCP - General 06/08/22 07/19/22 Guadalupe Mcbride MD PCP - General Family Medicine 07/20/22 11/01/23 Sena Dominguez PA [address] [place] [address] [place] [address] PCP - BRADY Physician Iap Displays Analyst 11/02/23 Levy Barry MD [address] [place] [address] [place] [address] PCP - General Family Medicine 12/20/23 documented as of this encounter
--- OUTSIDE RECORDS SUMMARY | 2025-07-26 15:25 | XMS_ITS | Encounter Summary ---
Author Organization [facility] work ([facility]) Address [address] [facility] [address] [address] [place] [address] Care Team Providers Care Correspondence Clerk Name Role Phone Meme Steel MD Primary Care Provider [phone] Pcp, Pcp Primary Care Provider Unavailabl Guadalupe Bardales MD Primary Care Provider [phone] Sena Dominguez Unavailable [phone] Levy Barry MD Primary Care Provider Unavailab le Source Comments The information that you have received may contain highly confidential and/or federally protected health information. This information has been disclosed to you from records protected by [facility]. The law prohibits you from making [...] [facility] ([facility]) Encounter Details Date Type Department Care Team (Late st Contact Info) Description 2004 Historical Note [facility] [employer] System Devyn Vásquez MD [address] [place] [address] [phone] Social History Tobacco Use Types Packs/Day Years [...] CARRILLO - [facility] [address] [facility] [address] [place] [phone] Brenda Clay MD [address] [facility] [place] [address] [place] [address] 04/15/2026 10:00 AM EDT Office Visit LE[facility]HA [facility] [address] [facility] [address] [place] [address] Sena Dominguez PA [address] [facility] [place] [address] documented as of this encounter Visit Diagnoses Not on filedocumented in this encounter Care Teams Correspondence Clerk Relationship Specialty Start Date End Date Meme Steel MD [address] [place] [address] 105 [place] [address] PCP - General Pediatrics 06/05/18 04/25/22 No Pcp, Pcp PCP - General 06/08/22 07/19/22 Guadalupe Mcbride MD PCP - General Family Medicine 07/20/22 11/01/23 Sena Dominguez PA [address] [place] [address] [place] [address] PCP - BRADY Physician Wireless Architect 11/02/23 Levy Baryr MD [address] [place] [address] [place] [address] PCP - General Family Medicine 12/20/23 documented as of this encounter
--- OUTSIDE RECORDS SUMMARY | 2025-07-26 15:25 | XMS_ITS | Encounter Summary ---
Author Organization [facility] work ([facility]) Address [address] [place] [address] Care Team Providers Care Dye Boarding Machine Operator Name Role Phone Meme Steel MD Primary Care Provider [phone] No Pcp, Pcp Primary Care Provider Unavailabl Guadalupe Bardales MD Primary Care Provider [phone] Sena Dominguez Unavailable [phone] Levy Barry MD Primary Care Provider Unavailab le Source Comments The information that you have received may contain highly confidential and/or federally protected health information. This information has been disclosed to you from records protected by [facility]. The law prohibits you [...] contact the sender immediately.[facility] ([facility]) Encounter Details Date Type Department Care Team (Late st Contact Info) Description 10/29/2009 Historical Note [facility] [employer] System Devyn Vásquez MD [address] [place] [address] [phone] Social History Tobacco Use Types Packs/Day Years [...] LEATHA CARRILLO - [facility] at [facility] [address] [facility] [address] [place] [phone] Brenda Clay MD [address] [facility] [place] [address] [place] [address] 04/15/2026 10:00 AM EDT Office Visit LEATHA [facility] at [facility] [address] [facility] [address] [place] [address] Sena Dominguez PA [address] [facility] [place] [address] documented as of this encounter Visit Diagnoses Not on filedocumented in this encounter Care Teams Dye Boarding Machine Operator Relationship Specialty Start Date End Date Meme Steel MD [address] [place] [address] 105 [place] [address] PCP - General Pediatrics 06/05/18 04/25/22 No Pcp, Pcp PCP - General 06/08/22 07/19/22 Guadalupe Mcbride MD PCP - General Family Medicine 07/20/22 11/01/23 Sena Dominguez PA [address] [place] [address] [place] [address] PCP - BRADY Physician Crew Director 11/02/23 Levy Barry MD [address] [place] [address] [place] [address] PCP - General Family Medicine 12/20/23 documented as of this encounter"
--- OUTSIDE RECORDS SUMMARY | 2025-07-26 15:26 | XMS_ITS | Encounter Summary ---
Author Organization [facility] work ([facility]) Address [address] [place] [address] Care Team Providers Care Managing Supervisor Name Role Phone Meme Steel MD Primary Care Provider [phone] No Pcp, Pcp Primary Care Provider Unavailabl Guadalupe Bardales MD Primary Care Provider Sena Dominguez Unavailable [phone] Levy Barry MD Primary Care Provider Unavailab le Source Comments The information that you have received may contain highly confidential and/or federally protected health information. This information has been disclosed to you from records protected by [facility]. The law prohibits you from making [...] error, please contact the sender immediately.[facility] ([facility]) Encounter Details Date Type Department Care Team (Late st Contact Info) Description 06/18/2014 Historical Note [facility] [employer] System Devyn Vásquez MD [address] [place] [address] [phone] Social History Tobacco Use Types Packs/Day Years [...] AM EST Office Visit LEATHA CARRILLO - [facility] [address] [facility] [address] [place] [phone] Brenda Clay MD [address] [facility] [place] [address] [place] [address] 04/15/2026 10:00 AM EDT Office Visit LEATHA Primary [facility] at [facility] + [facility] [address] [facility] [address] [place] [address] Sena Dominguez PA [address] [facility] [place] [address] documented as of this encounter Visit Diagnoses Not on filedocumented in this encounter Care Teams Managing Supervisor Relationship Specialty Start Date End Date Meme Steel MD [address] [place] [address] 105 [place] [address] PCP - General Pediatrics 06/05/18 04/25/22 No Pcp, Pcp PCP - General 06/08/22 07/19/22 Guadalupe Mcbride MD PCP - General Family Medicine 07/20/22 11/01/23 Sena Dominguez PA [address] [place] [address] [place] [address] PCP - BRADY Physician Equipment Sterilizer 11/02/23 Levy Barry MD [address] [place] [address] [place] [address] PCP - General Family Medicine 12/20/23 documented as of this encounter
--- OUTSIDE RECORDS SUMMARY | 2025-07-26 15:26 | XMS_ITS | Encounter Summary ---
Author Organization [facility] work ([facility]) Address [address] [place] [address] Care Team Providers Care Human Resources Office Manager Name Role Phone Meme Steel MD Primary Care Provider [phone] Pcp, Pcp Primary Care Provider Unavailabl Guadalupe Bardales MD Primary Care Provider [phone] Sena Dominguez Unavailable [phone] Levy Barry MD Primary Care Provider Unavailab le Source Comments The information that you have received may contain highly confidential and/or federally protected health information. This information has been disclosed to you from records protected by [facility]. The law prohibits [...] error, please contact the sender immediately.[facility] ([facility]) Encounter Details Date Type Department Care Team (Late st Contact Info) Description 06/06/2008 Historical Note [facility] [employer]ily[employer] System Devyn Vásquez MD [address] [place] [address] [phone] Social History Tobacco Use Types Packs/Day Years [...] LEATHA CARRILLO - [facility] [address] [facility] [address] [place] [phone] Brenda Clay MD [address] [facility] [place] [address] [place] [address] 04/15/2026 10:00 AM EDT Office Visit LEATHA [facility] at [facility] + [facility] [address] [facility] [address] [place] [address] Sena Dominguez PA [address] [facility] [place] [address] documented as of this encounter Visit Diagnoses Not on filedocumented in this encounter Care Teams Human Resources Office Manager Relationship Specialty Start Date End Date Meme Steel MD [address] [place] [address] 105 [place] [address] PCP - General Pediatrics 06/05/18 04/25/22 No Pcp, Pcp PCP - General 06/08/22 07/19/22 Guadalupe Mcbride MD PCP - General Family Medicine 07/20/22 11/01/23 Sena Dominguez PA [address] [place] [address] [place] [address] PCP - BRADY Physician Adjunct Professor Of Law 11/02/23 Levy Barry MD [address] [place] [address] [place] [address] PCP - General Family Medicine 12/20/23 documented as of this encounter
--- OUTSIDE RECORDS SUMMARY | 2025-07-26 15:26 | XMS_ITS | Encounter Summary ---
Author Organization [facility] work ([facility] Address [address] [place] [address] Care Team Providers Care Electronics Mechanic Name Role Phone Meme Steel MD Primary Care Provider [phone] Pcp, Pcp Primary Care Provider Unavailabl Guadalupe Bardales MD Primary Care Provider [phone] Sena Dominguez Unavailable [phone] Levy Barry MD Primary Care Provider Unavailab le Source Comments The information that you have received may contain highly confidential and/or federally protected health information. This information has been disclosed to you from records protected by [facility]. The law prohibits you from [...] contact the sender immediately.[facility] ([facility] Encounter Details Date Type Department Care Team (Late st Contact Info) Description 03/03/2005 Historical Note [facility] [employer] System Devyn Vásquez MD [address] [place] [address] [phone] Social History Tobacco Use Types Packs/Day Years [...] Visit LEATHA CARRILLO - [facility] [address] [facility] [address] [place] [phone] Brenda Clay MD [address] [facility] [place] [address] [place] [phone] 04/15/2026 10:00 AM EDT Office Visit [facility] + [facility] [address] [facility] [address] [place] [address] Sena Dominguez PA [address] [facility] [place] [address] documented as of this encounter Visit Diagnoses Not on filedocumented in this encounter Care Teams Electronics Mechanic Relationship Specialty Start Date End Date Meme Steel MD [address] [place] [address] [place] [address] PCP - General Pediatrics 06/05/18 04/25/22 No Pcp, Pcp PCP - General 06/08/22 07/19/22 Guadalupe Mcbride MD PCP - General Family Medicine 07/20/22 11/01/23 Sena Dominguez PA [address] [place] [address] [place] [address] PCP - BRADY Physician Handkerchief Presser 11/02/23 Levy Barry MD [address] [place] [address] [place] [address] PCP - General Family Medicine 12/20/23 documented as of this encounter
--- OUTSIDE RECORDS SUMMARY | 2025-07-26 15:26 | XMS_ITS | Encounter Summary ---
Author Organization [facility] work ([facility]) Address [address] [facility] [address] [place] [address] Care Team Providers Care Hadoop Java Developer Name Role Phone Meme Steel MD Primary Care Provider [phone] Pcp, Pcp Primary Care Provider Unavailabl Guadalupe Bardales MD Primary Care Provider [phone] Sena Dominguez Unavailable [phone] Levy Barry MD Primary Care Provider Unavailab le Source Comments The information that you have received may contain highly confidential and/or federally protected health information. This information has been disclosed to you from records protected by [facility]. The law prohibits you from making [...] contact the sender immediately.[facility] ([facility]) Encounter Details Date Type Department Care Team (Late st Contact Info) Description 06/16/2008 Historical Note [facility] Simple[employer]o System Devyn Vásquez MD [address] [place] [address] [phone] Social History Tobacco Use Types Packs/Day Years [...] - [facility] [address] [facility] [address] [place] [phone] Brenda Clay MD [address] [facility] [place] [address] [place] [address] 04/15/2026 10:00 AM EDT Office Visit [facility] + [facility] [address] [facility] [address] [place] [address] Sena Dominguez PA [address] [facility] [place] [address] documented as of this encounter Visit Diagnoses Not on filedocumented in this encounter Care Teams Hadoop Java Developer Relationship Specialty Start Date End Date Meme Steel MD [address] [place] [address] 105 [place] [address] PCP - General Pediatrics 06/05/18 04/25/22 No Pcp, Pcp PCP - General 06/08/22 07/19/22 Guadalupe Mcbride MD PCP - General Family Medicine 07/20/22 11/01/23 Sena Dominguez PA [address] [place] [address] [place] [address] PCP - BRADY Physician Marketing Administrative Assistant 11/02/23 Levy Barry MD [address] [place] [address] [place] [address] PCP - General Family Medicine 12/20/23 documented as of this encounter
--- OUTSIDE RECORDS SUMMARY | 2025-07-26 15:26 | XMS_ITS | Encounter Summary ---
Author Organization [facility] work ([facility]) Address [address] [place] [address] Care Team Providers Care Agricultural Engineering Technicians Name Role Phone Meme Steel MD Primary Care Provider [phone] Pcp, Pcp Primary Care Provider Unavailabl Guadalupe Bardales MD Primary Care Provider [phone] Sena Dominguez Unavailable [phone] Levy Barry MD Primary Care Provider Unavailab le Source Comments The information that you have received may contain highly confidential and/or federally protected health information. This information has been disclosed to you from records protected by [facility]. The law prohibits you [...] contact the sender immediately.[facility] ([facility]) Encounter Details Date Type Department Care Team (Late st Contact Info) Description 10/02/2007 Historical Note [facility] Hi[employer] System Devyn Vásquez MD [address] [place] [address] [phone] Social History Tobacco Use Types Packs/Day Years [...] CARRILLO - [facility] [address] [facility] [address] [place] [phone] Brenda Clay MD [address] [facility] [place] [address] [place] [address] 04/15/2026 10:00 AM EDT Office Visit [facility]HA [facility] at [facility] + [facility] [address] [facility] [address] [place] [address] Sena Dominguez PA [address] [facility] [place] [address] documented as of this encounter Visit Diagnoses Not on filedocumented in this encounter Care Teams Agricultural Engineering Technicians Relationship Specialty Start Date End Date Meme Steel MD [address] [place] [address] 105 [place] [address] PCP - General Pediatrics 06/05/18 04/25/22 No Pcp, Pcp PCP - General 06/08/22 07/19/22 Guadalupe Mcbride MD PCP - General Family Medicine 07/20/22 11/01/23 Sena Dominguez PA [address] [place] [address] [place] [address] PCP - BRADY Physician Enrollment Nurse 11/02/23 Levy Barry MD [address] [place] [address] [place] [address] PCP - General Family Medicine 12/20/23 documented as of this encounter
--- OUTSIDE RECORDS SUMMARY | 2025-07-26 15:26 | XMS_ITS | Encounter Summary ---
Author Organization [facility] work ([facility]) Address [address] [place] [address] Care Team Providers Care Buyer Agent Name Role Phone Meme Steel MD Primary Care Provider [phone] Pcp, Pcp Primary Care Provider Unavailabl Guadalupe Bardalse MD Primary Care Provider [phone] Sena Dominguez Unavailable [phone] Levy Barry MD Primary Care Provider Unavailab le Source Comments The information that you have received may contain highly confidential and/or federally protected health information. This information has been disclosed to you from records protected by [facility]. The law prohibits you [...] please contact the sender immediately.[facility] ([facility]) Encounter Details Date Type Department Care Team (Late st Contact Info) Description 11/27/2015 Historical Note [facility] [employer] System Devyn Vásquez MD [address] [place] [address] [phone] Social History Tobacco Use Types Packs/Day Years [...] CARRILLO - [facility] [address] [facility] [address] [place] [phone] Brenda Clay MD [address] [facility] [place] [address] [place] [phone] 04/15/2026 10:00 AM EDT Office Visit [facility]HA [facility] at [facility] + [facility] [address] [facility] [address] [place] [address] Sena Dominguez PA [address] [facility] [place] [address] documented as of this encounter Visit Diagnoses Not on filedocumented in this encounter Care Teams Buyer Agent Relationship Specialty Start Date End Date Meme Steel MD [address] [place] [address] 105 [place] [address] PCP - General Pediatrics 06/05/18 04/25/22 No Pcp, Pcp PCP - General 06/08/22 07/19/22 Guadalupe Mcbride MD PCP - General Family Medicine 07/20/22 11/01/23 Sena Dominguez PA [address] [place] [address] [place] [address] PCP - BRADY Physician Professional Builder 11/02/23 Levy Barry MD [address] [place] [address] [place] [address] PCP - General Family Medicine 12/20/23 documented as of this encounter
--- OUTSIDE RECORDS SUMMARY | 2025-07-26 15:26 | XMS_ITS | Encounter Summary ---
Author Organization [facility] work ([facility]) Address [address] [place] [address] Care Team Providers Care Inspector Final Assembly Mechanical Name Role Phone Meme Steel MD Primary Care Provider No Pcp, Pcp Primary Care Provider Unavailabl Guadalupe Bardales MD Primary Care Provider [phone] Sena Dominguez Unavailable [phone] Levy Barry MD Primary Care Provider Unavailab le Source Comments The information that you have received may contain highly confidential and/or federally protected health information. This information has been disclosed to you from records protected by [facility]. The law prohibits you from [...] contact the sender immediately.[facility] ([facility]) Encounter Details Date Type Department Care Team (Late st Contact Info) Description 04/08/2009 Historical Note [facility] [employer]it [employer] System Devyn Vásquez MD [address] [place] [address] [phone] Social History Tobacco Use Types Packs/Day Years [...] Visit LEATHA CARRILLO - [facility] at [facility] [address] [facility] [address] [place] [phone] Brenda Clay MD [address] [facility] [place] [address] [place] [address] 04/15/2026 10:00 AM EDT Office Visit [facility] at [facility] [address] [facility] [address] [place] [address] Sena Dominguez PA [address] [facility] [place] [address] documented as of this encounter Visit Diagnoses Not on filedocumented in this encounter Care Teams Inspector Final Assembly Mechanical Relationship Specialty Start Date End Date Meme Steel MD [address] [place] [address] 105 [place] [address] PCP - General Pediatrics 06/05/18 04/25/22 No Pcp, Pcp PCP - General 06/08/22 07/19/22 Guadalupe Mcbride MD PCP - General Family Medicine 07/20/22 11/01/23 Sena Dominguez PA [address] [place] [address] [place] [address] PCP - BRADY Physician Customer Solutions Representative 11/02/23 Levy Barry MD [address] [place] [address] [place] [address] PCP - General Family Medicine 12/20/23 documented as of this encounter
--- OUTSIDE RECORDS SUMMARY | 2025-07-26 15:26 | XMS_ITS | Encounter Summary ---
Author Organization [facility] work ([facility]) Address [address] [place] [address] Care Team Providers Care Senior Occupational Therapist Name Role Phone Meem Steel MD Primary Care Provider [phone] Pcp, Pcp Primary Care Provider Unavailabl Guadalupe Bardales MD Primary Care Provider [phone] Sena Dominguez Unavailable [phone] Levy Barry MD Primary Care Provider Unavailab le Source Comments The information that you have received may contain highly confidential and/or federally protected health information. This information has been disclosed to you from records protected by [facility]. The law prohibits [...] Care Team (Late st Contact Info) Description 08/21/2014 Historical Note [facility] [employer] System Devyn Vásquez MD [address] [place] [address] [phone] Social History Tobacco Use Types Packs/Day Years [...] AM EST Office Visit LEATHA CARRILLO - [facility] at [facility] [address] [facility] [address] [place] [phone] Brenda Clay MD [address] [facility] [place] [address] [place] [address] 04/15/2026 10:00 AM EDT Office Visit [facility]HA [facility] at [facility] + [facility] [address] [facility] [address] [place] [address] Sena Dominguez PA [address] [facility] [place] [address] documented as of this encounter Visit Diagnoses Not on filedocumented in this encounter Care Teams Senior Occupational Therapist Relationship Specialty Start Date End Date Meme Steel MD [address] [place] [address] 105 [place] [address] PCP - General Pediatrics 06/05/18 04/25/22 No Pcp, Pcp PCP - General 06/08/22 07/19/22 Guadalupe Mcbride MD PCP - General Family Medicine 07/20/22 11/01/23 Sena Dominguez PA [address] [place] [address] [place] [address] PCP - BRADY Physician Braided Rug Maker 11/02/23 Levy Barry MD [address] [place] [address] [place] [address] PCP - General Family Medicine 12/20/23 documented as of this encounter
--- OUTSIDE RECORDS SUMMARY | 2025-07-26 15:26 | XMS_ITS | Encounter Summary ---
Author Organization [facility] work ([facility]) Address [address] [place] [address] Care Team Providers Care Utility Division Project Manager Name Role Phone Meme Steel MD Primary Care Provider [phone] Pcp, Pcp Primary Care Provider Unavailabl Guadalupe Bardales MD Primary Care Provider [phone] Sena Dominguez Unavailable [phone] Levy Barry MD Primary Care Provider Unavailab le Source Comments The information that you have received may contain highly confidential and/or federally protected health information. This information has been disclosed to you from records protected by [facility]. The law prohibits you [...] contact the sender immediately.[facility] ([facility]) Encounter Details Date Type Department Care Team (Late st Contact Info) Description 11/18/2014 Historical Note [facility] A[employer] Therapy System Devyn Vásquez MD [address] [place] [address] [phone] Social History Tobacco Use Types Packs/Day Years [...] LEATHA CARRILLO - [facility] at [facility] [address] [facility] [address] [place] [phone] Brenda Clay MD [address] [facility] [place] [address] [place] [address] 04/15/2026 10:00 AM EDT Office Visit LE[facility]HA [facility] at [facility] + [facility] [address] [facility] [address] [place] [address] Sena Dominguez PA [address] [facility] [place] [address] documented as of this encounter Visit Diagnoses Not on filedocumented in this encounter Care Teams Utility Division Project Manager Relationship Specialty Start Date End Date Meme Steel MD [address] [place] [address] 105 [place] [address] PCP - General Pediatrics 06/05/18 04/25/22 No Pcp, Pcp PCP - General 06/08/22 07/19/22 Guadalupe Mcbride MD PCP - General Family Medicine 07/20/22 11/01/23 Sena Dominguez PA [address] [place] [address] [place] [address] PCP - BRADY Physician Seasonal Tax Preparer 11/02/23 Levy Barry MD [address] [place] [address] [place] [address] PCP - General Family Medicine 12/20/23 documented as of this encounter
--- OUTSIDE RECORDS SUMMARY | 2025-07-26 15:26 | XMS_ITS | Encounter Summary ---
Author Organization [facility] work ([facility]) Address [address] [place] [address] Care Team Providers Care Moveman Name Role Phone Meme Steel MD Primary Care Provider [phone] No Pcp, Pcp Primary Care Provider Unavailabl Guadalupe Bardales MD Primary Care Provider [phone] Sena Dominguez Unavailable [phone] Levy Barry MD Primary Care Provider Unavailab le Source Comments The information that you have received may contain highly confidential and/or federally protected health information. This information has been disclosed to you from records protected by [facility]. The law prohibits you from [...] please contact the sender immediately.[facility] ([facility]) Encounter Details Date Type Department Care Team (Late st Contact Info) Description 08/06/2009 Historical Note [facility] O[employer] System Devyn Vásquez MD [address] [place] [address] [phone] Social History Tobacco Use Types Packs/Day Years [...] LEATHA CARRILLO - [facility] [address] [facility] [address] [place] [phone] Brenda Clay MD [address] [facility] [place] [address] [place] [address] 04/15/2026 10:00 AM EDT Office Visit LEATHA Primary [facility] at [facility] + [facility] [address] [facility] [address] [place] [address] Sena Dominguez PA [address] [facility] [place] [address] documented as of this encounter Visit Diagnoses Not on filedocumented in this encounter Care Teams Moveman Relationship Specialty Start Date End Date Meme Steel MD [address] [place] [address] 105 [place] [address] PCP - General Pediatrics 06/05/18 04/25/22 No Pcp, Pcp PCP - General 06/08/22 07/19/22 Guadalupe Mcbride MD PCP - General Family Medicine 07/20/22 11/01/23 Sena Dominguez PA [address] [place] [address] [place] [address] PCP - BRADY Physician Installment Agent 11/02/23 Levy Barry MD [address] [place] [address] [place] [address] PCP - General Family Medicine 12/20/23 documented as of this encounter
--- OUTSIDE RECORDS SUMMARY | 2025-07-26 15:26 | XMS_ITS | Encounter Summary ---
Author Organization [facility] work ([facility]) Address [address] [place] [address] Care Team Providers Care Guest Services Lead Name Role Phone Meme Steel MD Primary Care Provider [phone] Pcp, Pcp Primary Care Provider Unavailabl Guadalupe Bardales MD Primary Care Provider Sena Dominguez Unavailable [phone] Levy Barry MD Primary Care Provider Unavailab le Source Comments The information that you have received may contain highly confidential and/or federally protected health information. This information has been disclosed to you from records protected by [facility]. The law prohibits you [...] the sender immediately.[facility] ([facility]) Encounter Details Date Type Department Care Team (Late st Contact Info) Description 01/03/2008 Historical Note [facility] For [employer] System Devyn Vásquez MD [address] [place] [address] [phone] Social History Tobacco Use Types Packs/Day Years [...] Visit LEATHA CARRILLO - [facility] [address] [facility] [address] [place] [phone] Brenda Clay MD [address] [facility] [address] [place] [address] 04/15/2026 10:00 AM EDT Office Visit LE[facility]HA [facility] at [facility] + [facility] [address] [facility] [address] [place] [address] Sena Dominguez PA [address] [facility] [place] [address] documented as of this encounter Visit Diagnoses Not on filedocumented in this encounter Care Teams Guest Services Lead Relationship Specialty Start Date End Date Meme Steel MD [address] [place] [address] 105 [place] [address] PCP - General Pediatrics 06/05/18 04/25/22 No Pcp, Pcp PCP - General 06/08/22 07/19/22 Guadalupe Mcbride MD PCP - General Family Medicine 07/20/22 11/01/23 Sena Dominguez PA [address] [place] [address] [place] [address] PCP - BRADY Physician Asp Net Programmer 11/02/23 Levy Barry MD [address] [place] [address] [place] [address] PCP - General Family Medicine 12/20/23 documented as of this encounter
--- OUTSIDE RECORDS SUMMARY | 2025-07-26 15:26 | XMS_ITS | Encounter Summary ---
Author Organization [facility] work ([facility]) Address [address] [place] [address] Care Team Providers Care Boat Mechanic Name Role Phone Meme Steel MD Primary Care Provider [phone] No Pcp, Pcp Primary Care Provider Unavailabl Guadalupe Bardales MD Primary Care Provider [phone] Sena Dominguez Unavailable [phone] Levy Barry MD Primary Care Provider Unavailab le Source Comments The information that you have received may contain highly confidential and/or federally protected health information. This information has been disclosed to you from records protected by [facility]. The law prohibits you from making [...] please contact the sender immediately.[facility] ([facility]) Encounter Details Date Type Department Care Team (Late st Contact Info) Description 08/06/2009 Historical Note [facility] [employer] System Devyn Vásquez MD [address] [place] [address] [phone] Social History Tobacco Use Types Packs/Day Years [...] CARRILLO - [facility] [address] [facility] [address] [place] [phone] Brenda Clay MD [address] [facility] [address] [place] [address] 04/15/2026 10:00 AM EDT Office Visit LE[facility]HA [facility] at [facility] + [facility] [address] [facility] [address] [place] [address] Sena Dominguez PA [address] [facility] [place] [address] documented as of this encounter Visit Diagnoses Not on filedocumented in this encounter Care Teams Boat Mechanic Relationship Specialty Start Date End Date Meme Steel MD [address] [place] [address] 105 [place] [address] PCP - General Pediatrics 06/05/18 04/25/22 No Pcp, Pcp PCP - General 06/08/22 07/19/22 Guadalupe Mcbride MD PCP - General Family Medicine 07/20/22 11/01/23 Sena Dominguez PA [address] [place] [address] [place] [address] PCP - BRADY Physician Engraver Tender 11/02/23 Levy Barry MD [address] [place] [address] [place] [address] PCP - General Family Medicine 12/20/23 documented as of this encounter
--- OUTSIDE RECORDS SUMMARY | 2025-07-26 15:26 | XMS_ITS | Encounter Summary ---
Author Organization [facility] work ([facility]) Address [address] [place] [address] Care Team Providers Care Public Services Assistant Name Role Phone Meme Steel MD Primary Care Provider [phone] Pcp, Pcp Primary Care Provider Unavailabl Guadalupe aBrdales MD Primary Care Provider Sena Dominguez Unavailable [phone] Levy Barry MD Primary Care Provider Unavailab le Source Comments The information that you have received may contain highly confidential and/or federally protected health information. This information has been disclosed to you from records protected by [facility]. The law prohibits you from [...] error, please contact the sender immediately.[facility] ([facility]) Encounter Details Date Type Department Care Team (Late st Contact Info) Description 05/20/2014 Historical Note [facility] [employer] System Devyn Vásquez MD [address] [place] [address] [phone] Social History Tobacco Use Types Packs/Day Years [...] AM EST Office Visit LEATHA CARRILLO - [facility] [address] [facility] [address] [place] [phone] Brenda Clay MD [address] [facility] [address] [place] [address] 04/15/2026 10:00 AM EDT Office Visit [facility] + [facility] [address] [facility] [address] [place] [address] Sena Dominguez PA [address] [facility] [place] [address] documented as of this encounter Visit Diagnoses Not on filedocumented in this encounter Care Teams Public Services Assistant Relationship Specialty Start Date End Date Meme Steel MD [address] [place] [address] 105 [place] [address] PCP - General Pediatrics 06/05/18 04/25/22 No Pcp, Pcp PCP - General 06/08/22 07/19/22 Guadalupe Mcbride MD PCP - General Family Medicine 07/20/22 11/01/23 Sena Dominguez PA [address] [place] [address] [place] [address] PCP - BRADY Physician Plunger Shovel Operator 11/02/23 Levy Barry MD [address] [place] [address] [place] [address] PCP - General Family Medicine 12/20/23 documented as of this encounter
--- OUTSIDE RECORDS SUMMARY | 2025-07-26 15:26 | XMS_ITS | Encounter Summary ---
Author Organization [facility] work ([facility]) Address [address] [place] [address] Care Team Providers Care Flat Machine Cutter Name Role Phone Meme Steel MD Primary Care Provider [phone] Pcp, Pcp Primary Care Provider Unavailabl Guadalupe Bardales MD Primary Care Provider [phone] Sena Dominguez Unavailable Levy Barry MD Primary Care Provider Unavailab le Source Comments The information that you have received may contain highly confidential and/or federally protected health information. This information has been disclosed to you from records protected by [facility]. The law prohibits you from making [...] contact the sender immediately.[facility] ([facility]) Encounter Details Date Type Department Care Team (Late st Contact Info) Description 01/04/2008 Historical Note [facility] [employer] System Devyn Vásquez MD [address] [place] [address] [phone] Social History Tobacco Use Types Packs/Day Years [...] [facility] [address] [facility] [address] [place] [phone] Brenda Clay MD [address] [facility] [address] [place] [address] 04/15/2026 10:00 AM EDT Office Visit [facility] + [facility] [address] [facility] [address] [place] [address] Sena Dominguez PA [address] [facility] [place] [address] documented as of this encounter Visit Diagnoses Not on filedocumented in this encounter Care Teams Flat Machine Cutter Relationship Specialty Start Date End Date Meme Steel MD [address] [place] [address] 105 [place] [address] PCP - General Pediatrics 06/05/18 04/25/22 No Pcp, Pcp PCP - General 06/08/22 07/19/22 Guadalupe Mcbride MD PCP - General Family Medicine 07/20/22 11/01/23 Sena Dominguez PA [address] [place] [address] [place] [address] PCP - BRADY Physician Layer Out 11/02/23 Levy Barry MD [address] [place] [address] [place] [address] PCP - General Family Medicine 12/20/23 documented as of this encounter
--- OUTSIDE RECORDS SUMMARY | 2025-07-26 15:26 | XMS_ITS | Encounter Summary ---
Author Organization [facility] work ([facility]) Address [address] [place] [address] Care Team Providers Care Quality Nurse Name Role Phone Meme Steel MD Primary Care Provider [phone] Pcp, Pcp Primary Care Provider Unavailabl Guadalupe Bardales MD Primary Care Provider [phone] Sena Dominguez Unavailable [phone] Levy Barry MD Primary Care Provider Unavailab le Source Comments The information that you have received may contain highly confidential and/or federally protected health information. This information has been disclosed to you from records protected by [facility]. The law prohibits you from [...] the sender immediately.[facility] ([facility]) Encounter Details Date Type Department Care Team (Late st Contact Info) Description 12/27/2007 Historical Note [facility] [employer] System Devyn Vásquez MD [address] [place] [address] [phone] Social History Tobacco Use Types Packs/Day Years [...] Visit LEATHA CARRILLO - [facility] [address] [facility] [address] [place] [phone] Brenda Clay MD [address] [facility] [address] [place] [address] 04/15/2026 10:00 AM EDT Office Visit LEATHA [facility] at [facility] + [facility] [address] [facility] [address] [place] [address] Sena Dominguez PA [address] [facility] [place] [address] documented as of this encounter Visit Diagnoses Not on filedocumented in this encounter Care Teams Quality Nurse Relationship Specialty Start Date End Date Meme Steel MD [address] [place] [address] [place] [address] PCP - General Pediatrics 06/05/18 04/25/22 No Pcp, Pcp PCP - General 06/08/22 07/19/22 Guadalupe Mcbride MD PCP - General Family Medicine 07/20/22 11/01/23 Sena Dominguez PA [address] [place] [address] [place] [address] PCP - BRADY Physician Precision Printing Worker 11/02/23 Levy Barry MD [address] [place] [address] [place] [address] PCP - General Family Medicine 12/20/23 documented as of this encounter
--- OUTSIDE RECORDS SUMMARY | 2025-07-26 15:26 | XMS_ITS | Encounter Summary ---
Author Organization [facility] work ([facility]) Address [address] [address] [place] [address] Care Team Providers Care Kitchen Designer Name Role Phone Meme Steel MD Primary Care Provider [phone] Pcp, Pcp Primary Care Provider Unavailabl Guadalupe Bardales MD Primary Care Provider [phone] Sena Dominguez Unavailable [phone] Levy Barry MD Primary Care Provider Unavailab le Source Comments The information that you have received may contain highly confidential and/or federally protected health information. This information has been disclosed to you from records protected by [facility]. The law prohibits you [...] please contact the sender immediately.[facility] ([facility]) Encounter Details Date Type Department Care Team (Late st Contact Info) Description 01/07/2016 Historical Note [facility] [employer] System Devyn Vásquez MD [address] [place] [address] [phone] Social History Tobacco Use Types Packs/Day Years [...] CARRILLO - [facility] [address] [facility] [address] [place] [phone] Brenda Clay MD [address] [facility] [place] [address] [place] [address] 04/15/2026 10:00 AM EDT Office Visit [facility] [address] [facility] [address] [place] [address] Sena Dominguez PA [address] [facility] [place] [address] documented as of this encounter Visit Diagnoses Not on filedocumented in this encounter Care Teams Kitchen Designer Relationship Specialty Start Date End Date Meme Steel MD [address] [place] [address] 105 [place] [address] PCP - General Pediatrics 06/05/18 04/25/22 No Pcp, Pcp PCP - General 06/08/22 07/19/22 Guadalupe Mcbride MD PCP - General Family Medicine 07/20/22 11/01/23 Sena Dominguez PA [address] [place] [address] [place] [address] PCP - BRADY Physician Right Of Way Worker 11/02/23 Levy Barry MD [address] [place] [address] [place] [address] PCP - General Family Medicine 12/20/23 documented as of this encounter
--- OUTSIDE RECORDS SUMMARY | 2025-07-26 15:26 | XMS_ITS | Encounter Summary ---
Author Organization [facility] work ([facility]) Address [address] [place] [address] Care Team Providers Care Extrusion Process Operator Name Role Phone Meme Steel MD Primary Care Provider [phone] No Pcp, Pcp Primary Care Provider Unavailabl Guadalupe Bardales MD Primary Care Provider [phone] Sena Dominguez Unavailable Levy Barry MD Primary Care Provider Unavailab le Source Comments The information that you have received may contain highly confidential and/or federally protected health information. This information has been disclosed to you from records protected by [facility]. The law prohibits you from making [...] please contact the sender immediately.[facility] ([facility]) Encounter Details Date Type Department Care Team (Late st Contact Info) Description 06/06/2008 Historical Note [facility] [employer] System Devyn Vásquez MD [address] [place] [address] [phone] Social History Tobacco Use Types Packs/Day Years [...] CARRILLO - [facility] [address] [facility] [address] [place] [phone] Brenda Clay MD [address] [facility] [address] [place] [address] 04/15/2026 10:00 AM EDT Office Visit LE[facility]HA [facility] at [facility] + [facility] [address] [facility] [address] [place] [address] Sena Dominguez PA [address] [facility] [place] [address] documented as of this encounter Visit Diagnoses Not on filedocumented in this encounter Care Teams Extrusion Process Operator Relationship Specialty Start Date End Date Meme Steel MD [address] [place] [address] 105 [place] [address] PCP - General Pediatrics 06/05/18 04/25/22 No Pcp, Pcp PCP - General 06/08/22 07/19/22 Guadalupe Mcbride MD PCP - General Family Medicine 07/20/22 11/01/23 Sena Dominguez PA [address] [place] [address] [place] [address] PCP - BRADY Physician Managed Care Director 11/02/23 Levy Barry MD [address] [place] [address] [place] [address] PCP - General Family Medicine 12/20/23 documented as of this encounter
--- OUTSIDE RECORDS SUMMARY | 2025-07-26 15:26 | XMS_ITS | Encounter Summary ---
Author Organization [facility] work ([facility]) Address [address] [facility] [place] [address] Care Team Providers Care Patent Examiner Name Role Phone Meme Steel MD Primary Care Provider [phone] Pcp, Pcp Primary Care Provider Unavailabl Guadalupe Bardales MD Primary Care Provider [phone] Sena Dominguez Unavailable [phone] Levy Barry MD Primary Care Provider Unavailab le Source Comments The information that you have received may contain highly confidential and/or federally protected health information. This information has been disclosed to you from records protected by [facility]. The law prohibits you [...] please contact the sender immediately.[facility] ([facility]) Encounter Details Date Type Department Care Team (Late st Contact Info) Description 06/16/2014 Historical Note [facility] [employer] System Devyn Vásquez MD [address] [place] [address] [phone] Social History Tobacco Use Types Packs/Day Years [...] LEATHA CARRILLO - [facility] [address] [facility] [address] [place] [phone] Brenda Clay MD [address] [facility] [address] [place] [address] 04/15/2026 10:00 AM EDT Office Visit LEATHA Primary [facility] at [facility] + [facility] [address] [facility] [address] [place] [address] Sena Dominguez PA [address] [facility] [place] [address] documented as of this encounter Visit Diagnoses Not on filedocumented in this encounter Care Teams Patent Examiner Relationship Specialty Start Date End Date Meme Steel MD [address] [place] [address] 105 [place] [address] PCP - General Pediatrics 06/05/18 04/25/22 No Pcp, Pcp PCP - General 06/08/22 07/19/22 Guadalupe Mcbride MD PCP - General Family Medicine 07/20/22 11/01/23 Sena Dominguez PA [address] [place] [address] [place] [address] PCP - BRADY Physician Skin Diver 11/02/23 Levy Barry MD [address] [place] [address] [place] [address] PCP - General Family Medicine 12/20/23 documented as of this encounter
--- OUTSIDE RECORDS SUMMARY | 2025-07-26 15:26 | XMS_ITS | Encounter Summary ---
Author Organization [facility] work ([facility]) Address [address] [place] [address] Care Team Providers Care Transportation Logistics Internship Name Role Phone Meme tSeel MD Primary Care Provider [phone] Pcp, Pcp Primary Care Provider Unavailabl Guadalupe Bardales MD Primary Care Provider [phone] Sena Dominguez Unavailable [phone] Levy Barry MD Primary Care Provider Unavailab le Source Comments The information that you have received may contain highly confidential and/or federally protected health information. This information has been disclosed to you from records protected by [facility]. The law prohibits you from [...] immediately.[facility] ([facility]) Encounter Details Date Type Department Care Team (Late st Contact Info) Description 03/02/2005 Historical Note [facility] [employer] System Devyn Vásquez MD [address] [place] [address] [phone] Social History Tobacco Use Types Packs/Day Years [...] LEATHA CARRILLO - [facility] [address] [facility] [address] [place] [phone] Brenda Clay MD [address] [facility] [address] [place] [address] 04/15/2026 10:00 AM EDT Office Visit LEATHA [facility] at [facility] + [facility] [address] [facility] [address] [place] [address] Sena Dominguez PA [address] [facility] [place] [address] documented as of this encounter Visit Diagnoses Not on filedocumented in this encounter Care Teams Transportation Logistics Internship Relationship Specialty Start Date End Date Meme Steel MD [address] [place] [address] 105 [place] [address] PCP - General Pediatrics 06/05/18 04/25/22 No Pcp, Pcp PCP - General 06/08/22 07/19/22 Guadalupe Mcbride MD PCP - General Family Medicine 07/20/22 11/01/23 Sena Dominguez PA [address] [place] [address] [place] [address] PCP - BRADY Physician Research Associate Molecular Biology 11/02/23 Levy Barry MD [address] [place] [address] [place] [address] PCP - General Family Medicine 12/20/23 documented as of this encounter
--- OUTSIDE RECORDS SUMMARY | 2025-07-26 15:26 | XMS_ITS | Encounter Summary ---
Author Organization [facility] work ([facility]) Address [address] [facility] [address] [place] [address] Care Team Providers Care Barrel Repairer Name Role Phone Meme Steel MD Primary Care Provider [phone] Pcp, Pcp Primary Care Provider Unavailabl Guadalupe Bardales MD Primary Care Provider [phone] Sena Dominguez Unavailable [phone] Levy Barry MD Primary Care Provider Unavailab le Source Comments The information that you have received may contain highly confidential and/or federally protected health information. This information has been disclosed to you from records protected by [facility]. The law prohibits [...] contact the sender immediately.[facility] ([facility]) Encounter Details Date Type Department Care Team (Late st Contact Info) Description 12/27/2007 Historical Note [facility] [employer] System Devyn Vásquez MD [address] [place] [address] [phone] Social History Tobacco Use Types Packs/Day Years [...] LEATHA CARRILLO - [facility] [address] [facility] [address] [place] [phone] Brenda Clay MD [address] [facility] [address] [place] [address] 04/15/2026 10:00 AM EDT Office Visit LEATHA [facility] at [facility] [address] [facility] [address] [place] [address] Sena Dominguez PA [address] [facility] [place] [address] documented as of this encounter Visit Diagnoses Not on filedocumented in this encounter Care Teams Barrel Repairer Relationship Specialty Start Date End Date Meme Steel MD [address] [place] [address] 105 [place] [address] PCP - General Pediatrics 06/05/18 04/25/22 No Pcp, Pcp PCP - General 06/08/22 07/19/22 Guadalupe Mcbride MD PCP - General Family Medicine 07/20/22 11/01/23 Sena Dominguez PA [address] [place] [address] [place] [address] PCP - BRADY Physician Fresh Foods Clerk 11/02/23 Levy Barry MD [address] [place] [address] [place] [address] PCP - General Family Medicine 12/20/23 documented as of this encounter
--- OUTSIDE RECORDS SUMMARY | 2025-07-26 15:26 | XMS_ITS | Encounter Summary ---
Author Organization [facility] work ([facility]) Address [address] [place] [address] Care Team Providers Care Systems Administrator Name Role Phone Meme Steel MD Primary Care Provider [phone] Pcp, Pcp Primary Care Provider Unavailabl Guadalupe Bardales MD Primary Care Provider [phone] Sena Dominguez Unavailable [phone] Levy Barry MD Primary Care Provider Unavailab le Source Comments The information that you have received may contain highly confidential and/or federally protected health information. This information has been disclosed to you from records protected by [facility]. The law prohibits you from [...] information in error, please contact the sender immediately.[facility] ([facility]) Encounter Details Date Type Department Care Team (Late st Contact Info) Description 08/12/2008 Historical Note [facility] Hello Chair System Devyn Vásquez MD [address] [place] [address] [phone] Social History Tobacco Use Types Packs/Day Years [...] LEATHA CARRILLO - [facility] [address] [facility] [address] [place] [phone] Brenda Clay MD [address] [facility] [address] [place] [address] 04/15/2026 10:00 AM EDT Office Visit LEATHA [facility] at [place] + [facility] [address] [facility] [address] [place] [address] Sena Dominguez PA [address] [facility] [place] [address] documented as of this encounter Visit Diagnoses Not on filedocumented in this encounter Care Teams Systems Administrator Relationship Specialty Start Date End Date Mmee Steel MD [address] [place] [address] 105 [place] [address] PCP - General Pediatrics 06/05/18 04/25/22 No Pcp, Pcp PCP - General 06/08/22 07/19/22 Guadalupe Mcbride MD PCP - General Family Medicine 07/20/22 11/01/23 Sena Dominguez PA [address] [place] [address] [place] [address] PCP - BRADY Physician Flight Attendant/Inflight Manager 11/02/23 Levy Barry MD [address] [place] [address] [place] [address] PCP - General Family Medicine 12/20/23 documented as of this encounter
--- OUTSIDE RECORDS SUMMARY | 2025-07-26 15:26 | XMS_ITS | Encounter Summary ---
Author Organization [facility] work ([facility]) Address [address] [place] [address] Care Team Providers Care Family Service Counselor Name Role Phone Meme Steel MD Primary Care Provider [phone] Pcp, Pcp Primary Care Provider Unavailabl Guadalupe Bardales MD Primary Care Provider [phone] Sena Dominguez Unavailable [phone] Levy Barry MD Primary Care Provider Unavailab le Source Comments The information that you have received may contain highly confidential and/or federally protected health information. This information has been disclosed to you from records protected by [facility]. The law prohibits you [...] error, please contact the sender immediately.[facility] ([facility]) Encounter Details Date Type Department Care Team (Late st Contact Info) Description 01/02/2014 Historical Note [facility] [employer] System Devyn Vásquez MD [address] [place] [address] [phone] Social History Tobacco Use Types Packs/Day Years [...] - [facility] [address] [facility] [address] [place] [phone] Brenda Clay MD [address] [facility] [address] [place] [address] 04/15/2026 10:00 AM EDT Office Visit LEATHA Primary [facility] at [facility] + [facility] [address] [facility] [address] [place] [address] Sena Dominguez PA [address] [facility] [place] [address] documented as of this encounter Visit Diagnoses Not on filedocumented in this encounter Care Teams Family Service Counselor Relationship Specialty Start Date End Date Meme Steel MD [address] [place] [address] 105 [place] [address] PCP - General Pediatrics 06/05/18 04/25/22 No Pcp, Pcp PCP - General 06/08/22 07/19/22 Guadalupe Mcbride MD PCP - General Family Medicine 07/20/22 11/01/23 Sena Dominguez PA [address] [place] [address] [place] [address] PCP - BRADY Physician Retail Services Professional 11/02/23 Levy Barry MD [address] [place] [address] [place] [address] PCP - General Family Medicine 12/20/23 documented as of this encounter
--- OUTSIDE RECORDS SUMMARY | 2025-07-26 15:26 | XMS_ITS | Encounter Summary ---
Author Organization [facility] work ([facility]) Address [address] [place] [address] Care Team Providers Care Combination Man Name Role Phone Meme Steel MD Primary Care Provider [phone] No Pcp, Pcp Primary Care Provider Unavailabl Guadalupe Bardales MD Primary Care Provider [phone] Sena Dominguez Unavailable [phone] Levy Barry MD Primary Care Provider Unavailab le Source Comments The information that you have received may contain highly confidential and/or federally protected health information. This information has been disclosed to you from records protected by [facility]. The law prohibits you [...] error, please contact the sender immediately.[facility] ([facility]) Encounter Details Date Type Department Care Team (Late st Contact Info) Description 09/22/2014 Historical Note [facility] [employer] [facility] Devyn Vásquez MD [address] [place] [id number] Social History Tobacco Use Types Packs/Day Years [...] Visit LEATHA CARRILLO - [facility] [address] [place] [phone] Brenda Clay MD [address] [facility] [facility] [address] [place] [phone] 04/15/2026 10:00 AM EDT Office Visit [facility] + [facility] [address] [place] [phone] Sena Dominguez PA [address] [place] [address] documented as of this encounter Visit Diagnoses Not on filedocumented in this encounter Care Teams Combination Man Relationship Specialty Start Date End Date Meme Steel MD [address] [place] [address] [address] [place] [phone] PCP - General Pediatrics 06/05/18 04/25/22 No Pcp, Pcp PCP - General 06/08/22 07/19/22 Guadalupe Mcbride MD PCP - General Family Medicine 07/20/22 11/01/23 Sena Dominguez PA [address] [place] [address] [place] [address] PCP - BRADY Physician Billiard Table Assembler 11/02/23 Levy Barry MD [address] [place] [address] [place] [address] PCP - General Family Medicine 12/20/23 documented as of this encounter
--- OUTSIDE RECORDS SUMMARY | 2025-07-26 15:26 | XMS_ITS | Encounter Summary ---
Author Organization [facility] work ([facility]) Address [address] [place] [address] Care Team Providers Care Real Estate Valuer Name Role Phone Meme Steel MD Primary Care Provider [phone] No Pcp, Pcp Primary Care Provider Unavailabl Guadalupe Bardales MD Primary Care Provider [phone] Sena Dominguez Unavailable Levy Barry MD Primary Care Provider Unavailab le Source Comments The information that you have received may contain highly confidential and/or federally protected health information. This information has been disclosed to you from records protected by [facility]. The law prohibits you [...] contact the sender immediately.[facility] ([facility]) Encounter Details Date Type Department Care Team (Late st Contact Info) Description 01/04/2008 Historical Note [facility] [employer] System Devyn Vásquez MD [address] [place] [address] [phone] Social History Tobacco Use Types Packs/Day Years [...] CARRILLO - [facility] [address] [place] [phone] Brenda Clay MD [address] [facility] [address] [place] [phone] 04/15/2026 10:00 AM EDT Office Visit [facility] + [facility] [address] [place] [phone] Sena Dominguez PA [address] [facility] [facility] [place] [address] documented as of this encounter Visit Diagnoses Not on filedocumented in this encounter Care Teams Real Estate Valuer Relationship Specialty Start Date End Date Meme Steel MD [address] [place] [address] [address] [place] [address] PCP - General Pediatrics 06/05/18 04/25/22 No Pcp, Pcp PCP - General 06/08/22 07/19/22 Guadalupe Mcbride MD PCP - General Family Medicine 07/20/22 11/01/23 Sena Dominguez PA [address] [place] [address] [place] [address] PCP - BRADY Physician General Manager Land Department 11/02/23 Levy Barry MD [address] [place] [address] [place] [address] PCP - General Family Medicine 12/20/23 documented as of this encounter
--- OUTSIDE RECORDS SUMMARY | 2025-07-26 15:26 | XMS_ITS | Encounter Summary ---
Author Organization [facility] work ([facility]) Address [address] [place] [address] Care Team Providers Care Color Corrector Name Role Phone Meme Steel MD Primary Care Provider [phone] No Pcp, Pcp Primary Care Provider Unavailabl Guadalupe Bardales MD Primary Care Provider [phone] Sena Dominguez Unavailable [phone] Levy Barry MD Primary Care Provider Unavailab le Source Comments The information that you have received may contain highly confidential and/or federally protected health information. This information has been disclosed to you from records protected by [facility]. The law prohibits you from making [...] information in error, please contact the sender immediately.[facility] ([facility]) Encounter Details Date Type Department Care Team (Late st Contact Info) Description 01/07/2016 Historical Note [facility] [employer] System Devyn Vásquez MD [address] [place] [address] [phone] Social History Tobacco Use Types Packs/Day Years [...] LEATHA CARRILLO - [facility] [address] [facility] [address] [place] [phone] Brenda Clay MD [address] [facility] [address] [place] [phone] 04/15/2026 10:00 AM EDT Office Visit LE[facility]HA [facility] at [facility] [address] [place] [phone] Sena Dominguez PA [address] [facility] [place] [address] documented as of this encounter Visit Diagnoses Not on filedocumented in this encounter Care Teams Color Corrector Relationship Specialty Start Date End Date Meme Steel MD [address] [place] [address] [address] [place] [address] PCP - General Pediatrics 06/05/18 04/25/22 No Pcp, Pcp PCP - General 06/08/22 07/19/22 Guadalupe Mcbride MD PCP - General Family Medicine 07/20/22 11/01/23 Sena Dominguez PA [address] [place] [address] [place] [address] PCP - BRADY Physician Sheet Metal Layout Mechanic 11/02/23 Levy Barry MD [address] [place] [address] [place] [phone] PCP - General Family Medicine 12/20/23 documented as of this encounter
--- OUTSIDE RECORDS SUMMARY | 2025-07-26 15:26 | XMS_ITS | Clinical Summary ---
Author Organization [facility] work ([facility]) Address [address] [place] [address] Care Team Providers Care Scientist Immunology Name Role Phone Sena Dominguez Unavailable Levy Barry MD Primary Care Provider Unavailab le Source Comments The information that you have received may contain highly confidential and/or federally protected health information. This information has been disclosed to you from records protected by [employer]. The law prohibits you from making any [...] contact the sender immediately.[facility] ([facility]) Allergies Active Allergy Reactions Criticality Noted Date Comments Cats Other (See Comments) Low 07/06/2021 Dogs Other (See Comments) Low 07/06/2021 Dust Other (See Comments) Low 07/06/2021 Grass Other (See Comments) Low 07/06/2021 Mold Other (See Comments) Low 07/06/2021 Pollen Other (See Comments) Low 07/06/2021 Medications chlorhexidine (PERIDEX) 0.12 % solution 1 Active propranoloL (INDERAL LA) 60 MG 24 hr capsule 1 Active LORazepam (ATIVAN) 2 MG tabletIndicatio ns:Generalized anxiety disorder Take 1 tablet (2 mg total) by mouth every 6 (six) hours as needed for anxiety . Max Daily Amount: 8 mg 30 tablet 3 Active fluticasone propionate (FLONASE) 50 mcg/actuation nasal sprayIndication s:Seasonal allergic rhinitis due to pollen Instill 2 sprays into each nostril daily . 48 g 1 4 Active levothyroxine (SYNTHROID) 25 mcg tablet Take 1 tablet (25 mcg total) by mouth daily . Active fexofenadine (BARB) 180 mg tabletIndicatio ns:Allergic rhinitis due to dust mite Take 1 tablet (180 mg total) by mouth daily . 30 tablet 5 4 07/30/20 25 Active fexofenadine (BARB) 180 mg tablet Take 1 tablet (180 mg total) by mouth daily . 90 tablet 1 5 Active Additional Information Patient not taking.Reported on 04/08/2025 FLUoxetine (PROzac) 40 mg capsule Take 1 capsule (40 mg total) by mouth daily . 90 capsule 3 5 Active Aurovela Fe 1-20, 28, 1 mg-20 mcg (21)/75 mg (7) per tablet TAKE 1 TABLET BY MOUTH EVERY DAY SKIP PLACEBO WEEK FOR CONTINUOUS DOSING 84 tablet 3 5 Active Active Problems Problem Noted Date Diagnosed Date Generalized anxiety disorder 10/07/2022 Allergic conjunctivitis of both eyes 04/28/2021 Assessment & Plan (11/23/2021 1:44 PM EST): Good relief with ketotifen eyedrops as needed and prior to anticipated exposures Assessment & Plan (04/28/2021 12:03 PM EDT): Difficulty with ocular itching and tearing which is worse during this time of year. Will try ketotifen 1 drop in each eye 1-2 times daily. Seasonal allergic rhinitis due to pollen 021 Assessment & Plan (11/23/2021 1:45 PM EST): Good control of symptoms with the use of fluticasone nasal spray and Barb during pollen season. She would like to defer immunotherapy injections at this point Assessment & Plan (04/28/2021 12:04 PM EDT): Positive test to trees, grasses, and weeds. Difficulty with itchy throat, sneezing, rhinorrhea, and congestion. Symptoms are worse in the spring and summer. Barb does help but does not completely take away symptoms at this time of year. Try to add flonase 2 sprays per nostril daily. Resume Barb 180 mg daily. Report progress by phone. Seasonal allergic rhinitis due to fungal spores 04/28/2021 Assessment & Plan (11/23/2021 1:46 PM EST): History of positive test outdoor molds. Assessment & Plan (04/28/2021 12:03 PM EDT): Positive test to molds. Allergic rhinitis due to animal hair and dander 04/28/2021 Assessment & Plan (11/23/2021 1:45 PM EST): One dog at home. She does use ketotifen eyedrops prior to cat exposure. Assessment & Plan (04/28/2021 12:03 PM EDT): Positive test to cat and dog. One dog at home. Keep dog out of bedroom. Allergic rhinitis due to dust mite 04/28/2021 Assessment & Plan (11/23/2021 1:45 PM EST): Good control during the winter with little medication. Dust mite avoidance has been fairly well implemented Assessment & Plan (04/28/2021 12:03 PM EDT): Positive test to dust mite. Dust mite avoidance. Abnormal weight gain 07/30/2018 No secondhand smoke exposure 07/30/2018 Obesity, childhood 07/30/2018 Encounters Date Type Department Care Team Description 07/07/2025 Results Follow-Up [facility] Primary Care at [facility] + [address] [place] [address] Annel Jhaveri PA Comprehensive metabolic panel, CBC and differential, Lipid panel w/Reflex to Direct LDL from Last 3 Months Immunizations Immunization Administration Dates Next Due COVID-19 (MODERNA, SPIKEVAX 2022+)(PF), 12y+ 08/19/2023 COVID-19 mRNA (PF) (Pfizer, 2 dose series) 11/01/2021 DTaP 08/12/2008, 5,2004,10/19,2004 H1N1 Inj 10/06/2009 HPV 9-Valent 07/13/2016,03/09/2016,01/07/2016 Hepatitis A, Adult 01/03/2008,06/26/2007 Hepatitis B vaccine (Recombi vax HB, Engerix-B) 2004,2004,2004,05/28 Hepatitis B vaccine, (Recomb ivax HB, Engerix-B) 2004 HiB 05/31/2005, 5,2004,08/12 IPV 08/12/2008, 5,2004,08/12 Influenza LAIV4 (Nasal) 09/15/2015,09/22,08/13/2013,09/28,09/21/2010 Influenza, Live Trivalent (L AIV3), (Nasal) 09/10/2012 Influenza, Quadrivalent, Pre servative Free (IM) 08/19/2023,08/06/2022,08/24/2021,09/08,08/06/2019,07/30/2018,10/31/2017 ,10/27/2016 Influenza, Trivalent (IIV3), (IM) 2008,10/01/2008,09/28/2007,11/09 Influenza, Trivalent (IIV3), (PF)(IM) 09/08/2024 Influenza, Unspecified 08/19/2023,08/06/2022 MMR (Measles, Mumps, Rubella) 08/12/2008, 005 Meningococcal ACWY (MCV4P)(Menactra) 07/06/2021, 08/21/2014 Meningococcal B, OMV (Bexsero) 08/10/2021,2020 Meningococcal MCV4, Unspecified 08/21/2014 PPD Test (Intradermal) 05/23/2022 Pneumococcal Conjugate 7-christy ent (PCV-7) 05/31/2005,2004,2004,08/12 Tdap 01/07/2016 Varicella 08/12/2008,06/30/2005 Surgical History Surgery Date Site/Laterality Comments WISDOM TOOTH EXTRACTION Medical History Medical History Date Comments Tremor due to disorder of central nervous system Diana teeth extracted 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 Allergic 2013 Anxiety 2009 Depression 2014 Obesity 2009 Family History Medical History Relation Name Comments Chiari malformation Brother 1 Anxiety disorder Brother 2 Jah Tylera Diabetes Father Ilan Nath Hypertension Father Ilan Nath Anxiety disorder Mother Lacy Marcos Hypertension Mother Lacy Marcos Mental illness Mother Lacy Dentdiaz Anxiety disorder Sister 1 Janelle Dentler Hypothyroidism Sister 1 Janelle Dentler Thyroid disease Sister 2 Heidy Nath Relation Name Status Comments Brother 1 Brother 2 Jah Dobbinstza Father Ilan Nath Mother Lacy Dentler Sister 1 Janelle Dentler Sister 2 Heidy Nath Social History Tobacco Use Types Packs/Day Years Used Date Smoking Tobacco: Never Smokeless Tobacco: Never Tobacco Cessation:Counseling Given: Not Answered Alcohol Use Standard Drinks/Week Comments Never 0 (1 standard drink = 0.6 oz pur e alcohol) PHQ-2 Answer Date Recorded PHQ-9 Total Score 0 04/08/2025 Social Connections Answer Date Recorded How often do you feel isolated from others? Hard ly ever 01/31/2025 Financial Resource Strain Answer Date R ecorded Sometimes people find that t heir income does not quite cover their living costs. In the last 12 months, has this happened to you? No 01/31/2025 What is your current work situation? Une mployed, and not seeking work (ex: student, retired, disabled, unpaid primary care partner) 01/31/2025 Stress Answer Date Recorded Over the last 2 weeks, how o ften have you been bothered by the following problems: feeling nervous, anxious, on edge? Not at all 01/31/2025 Over the last 2 weeks, how o ften have you been bothered by the following problems: Not being able to stop or control worrying? Not at all 01/31/2025 Food Insecurity Answer Date Recorded Within the past 12 months we worried whether our food would run out before we got the money to buy more. Never true Within the past 12 months th e food we bought just didn't last and we didn't have money to get more. Never true 01/31/2025 Safety and Environment Answer Date Johnathon rded Do you feel physically and e motionally safe where you currently live? Yes 01/31/2025 Housing Stability Answer Date Recorded Are you worried about losing your housing? No 01/31/2025 In the past 12 months has th e electric, gas, oil, or water company threatened to shut off services in your home? No 01/31/2025 Health Literacy Answer Date Recorded How often do you need to hav e someone help you when you read instructions, pamphlets, or other written material from your doctor or pharmacist? Never 01/31/2025 I know how to find helpful health resources on [employer] internet. 1 01/31/2025 Alcohol and Drug Use Answer Date Record ed Females: In the past year, h ave you had more than 7 drinks in one week? No 01/31/2025 Males greater than 65 years of age: In the past year, have you had more than 7 drinks in one week? Unrecognized value Males less than or equal to 65 years of age: In the past year, have you had more than 14 drinks in one week? Unrecognized value 01/31/2025 In the past year, have you u sed any drugs other than those prescribed by your doctor? No 01/31/2025 Transportation Answer Date Recorded Has a lack of transportation kept you from medical appointments, meetings, work, or from getting things needed for daily living. Check all that apply. No 01/31/2025 Access Answer Date Recorded In the past year, have you b een unable to get childcare when it was really needed? Not Applicable 01/31/2025 In the past year, have you b een unable to get clothing when it was really needed? No 01/31/2025 In the past year, have you b een unable to get medicine or any health care when it was really needed? No 01/31/2025 Do you have access to any of the following devices? Smartphone( cell phone with a touchscreen and internet);Computer(laptop, desktop, or tablet such as an iPad) 01/31/2025 Utilities Answer Date Recorded In the past 12 months has e electric, gas, oil, or water company threatened to shut off services in your home? No 01/31/2025 Comments No Sex and Gender Information Value Date Recorded Sex Assigned at Not on file Legal Sex Female 1:04 AM EDT Gender Identity Not on file Sexual Orientation Not on file Obstetrics History Para Term AB IAB SAB Ectopic Molar Multiple Living Live Births 0 0 0 0 0 0 0 0 0 0 0 0 Last Filed Vital Signs Vital Sign Reading Time Taken Comments Blood Pressure 130/78 04/08/2025 8:49 AM EDT Pulse 67 04/08/2025 8:49 AM EDT Temperature 36.2 C (97.1 F) 04/08/2025 8:49 AM EDT Respiratory Rate 18 04/08/2025 8:49 AM EDT Oxygen Saturation 98% 04/08/2025 8:49 AM EDT Inhaled Oxygen Concentration - - Weight 124.1 kg (273 lb 9.6 oz) 04/08/2025 8:49 AM EDT Height 167.6 cm (5' 6 ) 04/08/2025 8:49 AM EDT Body Mass Index 44.16 04/08/2025 8:49 AM EDT Plan of Treatment Upcoming Encounters Date Type Department Care Team (Late st Contact Info) Description 10/10/2025 10:00 AM EST Office Visit LEATHA CARRILLO - [facility] [address] [place] [address] Brenda Clay MD [address] [place] [address] [place] [address] 04/15/2026 10:00 AM EDT Office Visit LEATHA Primary Care at [facility] + [address] [place] [address] Sena Dominguez PA [address] [place] [id number] Health Maintenance Due Date Last Done Comments Chlamydia/Gonorrhea STI 2004 Cervical Cancer Screening 2025 WELL ADULT EXAM 2025 01/31/2025 INFLUENZA VACCINES (#1) 2025 09/08/20, 08/19/2023, 08/19/2023, Additional history exists DTaP/Tdap/Td Vaccines (7 - Td or Tdap) 01/07/2026 01/07/2016, 08/12/2008, 08/30/2005, Additional history exists Social Determinants of Health 01/31/2026 01/31/2025 Depression Screen 04/08/2026 04/08/2025, , 04/26/2022, Additional history exists RSV Vaccine: Adults (60 yrs and older) and Patients (1 - 1-dose 75+ series) 2079 Hepatitis B Vaccine Completed 2004, 2004, 2004, Additional history exists Pneumococcal Vaccine: Pediatrics (0 to 5 Years) and At-Risk Patients (6 to 49 Years) Aged Out 05/31/2005, 2004, 2004, Additional history exists No longer eligible based on patient's age to complete this topic HPV VACCINES Completed 07/13/2016, 02/12, 01/07/2016 Meningococcal B Vaccine Completed 08/10/2021, 07/06 COVID-19 Vaccine Completed 07/12/2024, 05/2023, 11/01/2021, Additional history exists HEPATITIS C SCREEN Discontinued HIV SCREEN Discontinued ROTAVIRUS VACCINES Aged Out No longer eligible based on patient's age to complete this topic Goals Goal Patient Goal Type Associated Problems Recent Progress Patient-Stated? Author Water intake Diet No Teena Snyder RD Note: At least 4, 17 ounces water daily Increase Exercise Exercise Yes Teena Snyder RD Note: Walk dog: at lest 1 x week for 10 minutes (termite helper goal of 150 minutes planned movement weekly) Plan meals Lifestyle No Teena Snyder RD Note: 3 healthy meals each day with 0-1 snack. Eat breakfast within 2 hours of waking up. Meals spaced 4-5 hours apart. Healthy snacking if meals longer than 5 hours apart. Stop eating within 2 hours of bedtime. Procedures Procedure Name Priority Date/Time Associated Diagnosis Comments LIPID PANEL W/REFLEX TO DIRECT LDL Routine 07/05/2025 10:34 AM EDT Major depressive disorder, single episode, mild Hypothyroidism, unspecified type Mixed hyperlipidemia CBC AND DIFFERENTIAL Routine 07/05/2025 10:34 AM EDT Major depressive disorder, single episode, mild Hypothyroidism, unspecified type Mixed hyperlipidemia COMPREHENSIVE METABOLIC PANEL Routine 07/05/2025 10:34 AM EDT Major depressive disorder, single episode, mild Hypothyroidism, unspecified type Mixed hyperlipidemia from Last 3 Months Results * CBC and differential (07/05/2025 10:34 AM EDT) WBC 7.4 3.8 - 10.8 Thousand/u L [facility] Erythrocyte Count 4.72 3.80 - 5.10 Million/uL [facility] Hemoglobin 13.3 11.7 - 15.5 g/dL [facility] Hematocrit 40.4 35.0 - 45.0 % [facility] MCV 85.6 80.0 - 100.0 fL [facility] MCH 28.2 27.0 - 33.0 pg [facility] MCHC 32.9 32.0 - 36.0 g/dL [facility] Comment: For adults, a slight decrease in the calculated MCHC value (in the range of 30 to 32 g/dL) is most likely not clinically significant; however, it should be interpreted with caution in correlation with other red cell parameters and the patient's clinical condition. RDW 13.3 11.0 - 15.0 % [facility] Platelet Count 329 140 - 400 Thousand/u L [facility] Mpv 10.1 7.5 - 12.5 fL [facility] Absolute Neutrophil Count 4,529 1,500 - 7,800 cells/uL [facility] Absolute Lymphocyte Count 2,116 850 - 3,900 cells/uL [facility] Absolute Monocyte Count 481 200 - 950 cells/uL [facility] Absolute Eosinophil Count 237 15 - 500 cells/uL [facility] Absolute Basophil Count 37 0 - 200 cells/uL [facility] Neutrophils Percent 61.2 % [facility] Total Lymphocytes Percent 28.6 % [facility] Monocytes Percent 6.5 % [facility] Eosinophil Percent 3.2 % [facility] Basophils Percent 0.5 % [facility] Blood specimen / Unknown 07/05/2025 10:34 AM EDT 07/05/2025 10:34 AM EDT Narrative [facility] - 07/05/2025 6:11 PM EDT 1 OF 2 REQS FASTING:YES FASTING: YES Holly VÁZQUEZ LAB BLOOD ORDERABLES Final R esult [facility] [address] [place] [address] [place] [address] [facility] [address] [place] [address] [place] [phone] * (ABNORMAL) Lipid panel w/Reflex to Direct LDL (07/05/2025 10:34 AM EDT) Cholesterol 192 <200 mg/dL [facility] HDL Cholesterol 62 > OR = 50 mg/dL [facility] Triglycerides 81 <150 mg/dL [facility] LDL Cholesterol, Calculated 112(H) mg/dL (calc) [facility] Comment: Reference range: <100 Desirable range <100 mg/dL for primary prevention; <70 mg/dL for patients with CHD or diabetic patients with > or = 2 CHD risk factors. LDL-C is now calculated using the Madelyn calculation, which is a validated novel method providing better accuracy than the Friedewald equation in the estimation of LDL-C. Antoine SS et al. DEBORA. 2013;310(56): 6224-3972 (http://education.SkyRank/faq/JLT080) Cholesterol/HDL Ratio 3.1 <5.0 (calc) [facility] NON-HDL CHOLESTEROL 130(H) <130 mg/dL (calc) [facility] Comment: For patients with diabetes plus 1 major ASCVD risk factor, treating to a non-HDL-C goal of <100 mg/dL (LDL-C of <70 mg/dL) is considered a therapeutic option. Blood specimen / Unknown 07/05/2025 10:34 AM EDT 07/05/2025 10:34 AM EDT Narrative [facility] - 07/05/2025 6:11 PM EDT 1 OF 2 REQS FASTING:YES FASTING: YES Holly VÁZQUEZ LAB BLOOD ORDERABLES Final R esult [facility] [address] [place] [address] [place] [address] [facility] [address] [place] [address] [place] [phone] * Comprehensive metabolic panel (07/05/2025 10:34 AM EDT) [facility] Glucose 80 65 - 99 mg/dL [facility] Comment: Fasting reference interval BUN 9 7 - 25 mg/dL [facility] Creatinine 0.64 0.50 - 0.96 mg/dL [facility] EGFR 129 > OR = 60 mL/min/1. 73m2 [facility] BUN/Creatinine Ratio SEE NOTE: 6 - 22 (calc) [facility] Comment: Not Reported: BUN and Creatinine are within reference range. Sodium 138 135 - 146 mmol/L [facility] Potassium 4.5 3.4 - 4.8 mmol/L [facility] Chloride 107 98 - 110 mmol/L [facility] CO2 23 20 - 32 mmol/L [facility] Calcium 9.0 8.6 - 10.2 mg/dL [facility] Total Protein 7.3 6.4 - 8.4 g/dL [facility] Albumin 3.8 3.6 - 5.1 g/dL [facility] Globulin, Calculated 3.5 2.2 - 4.0 g/dL (calc) [facility] ALBUMIN/GLOBULI N RATIO 1.1 0.9 - 2.3 (calc) [facility] Total Bilirubin 0.3 0.2 - 1.2 mg/dL [facility] Alkaline Phosphatase 91 31 - 125 U/L [facility] AST 20 10 - 30 U/L [facility] ALT 16 6 - 29 U/L [facility] Blood Blood specimen / Unknown 07/05/2025 10:34 AM EDT 07/05/2025 10:34 AM EDT Narrative [facility] - 07/05/2025 6:11 PM EDT 1 OF 2 REQS FASTING:YES FASTING: YES us Holly VÁZQUEZ LAB BLOOD ORDERABLES Final R esult [facility] [address] [place] [address] [place] [address] [facility] [address] [place] [address] [place] [phone] from Last 3 Months Insurance [facility] [employer] [facility] [place] [facility] [employer] [facility] [place] Care Teams Scientist Immunology Relationship Specialty Start Date End Date Sena Dominguez [place] [address] [place] [phone] PCP - BRADY Physician Regional Controller 11/02/23 Levy Barry MD [address] [place] [address] PCP - General Family Medicine 12/20/23
--- OUTSIDE RECORDS SUMMARY | 2025-07-26 15:26 | XMS_ITS | Encounter Summary ---
Author Organization [facility] work ([facility]) Address [address] [place] [address] Care Team Providers Care Speech Communication Instructor Name Role Phone Meme Steel MD Primary Care Provider No Pcp, Pcp Primary Care Provider Unavailabl Guadalupe Bardales MD Primary Care Provider [phone] Sena Dominguez Unavailable [phone] Levy Barry MD Primary Care Provider Unavailab le Source Comments The information that you have received may contain highly confidential and/or federally protected health information. This information has been disclosed to you from records protected by [facility]. The law prohibits you from [...] in error, please contact the sender immediately.[facility] ([facility]) Encounter Details Date Type Department Care Team (Late st Contact Info) Description 10/12/2015 Historical Note [facility] [email or web address] Devyn Vásquez MD [address] [place] [address] [phone] Social History Tobacco Use Types Packs/Day Years [...] - [facility] [address] [place] [phone] Brenda Clay MD [address] [facility] [address] [place] [phone] 04/15/2026 10:00 AM EDT Office Visit [facility]ATHA Primary [facility] at [facility] + [facility] [address] [place] [phone] Sena Dominguez PA [address] [place] [phone] documented as of this encounter Visit Diagnoses Not on filedocumented in this encounter Care Teams Speech Communication Instructor Relationship Specialty Start Date End Date Meme Steel MD [address] [place] [address] [place] [id number] PCP - General Pediatrics 06/05/18 04/25/22 No Pcp, Pcp PCP - General 06/08/22 07/19/22 Guadalupe Mcbride MD PCP - General Family Medicine 07/20/22 11/01/23 Sena Dominguez PA [address] [place] [address] [place] [address] PCP - BRADY Physician Legal Practice Manager 11/02/23 Levy Barry MD [address] [place] [address] [place] [address] PCP - General Family Medicine 12/20/23 documented as of this encounter
--- OUTSIDE RECORDS SUMMARY | 2025-07-26 15:26 | XMS_ITS | Encounter Summary ---
Author Organization [facility] work ([facility]) Address [address] [place] [address] Care Team Providers Care Subpoena Server Name Role Phone Meme Steel MD Primary Care Provider [phone] Pcp, Pcp Primary Care Provider Unavailabl Guadalupe Bardales MD Primary Care Provider [phone] Sena Dominguez Unavailable [phone] Levy Barry MD Primary Care Provider Unavailab le Source Comments The information that you have received may contain highly confidential and/or federally protected health information. This information has been disclosed to you from records protected by [facility]. The law prohibits [...] information in error, please contact the sender immediately.[facility] ([facility]) Encounter Details Date Type Department Care Team (Late st Contact Info) Description 02/18/2014 Historical Note [facility] [employer] System Devyn Vásquez MD [address] [place] [address] [phone] Social History Tobacco Use Types Packs/Day Years [...] AM EST Office Visit LEATHA CARRILLO - [facility] [address] [facility] [address] [place] [phone] Brenda Clay MD [address] [facility] [address] [place] [address] 04/15/2026 10:00 AM EDT Office Visit [facility] + [facility] [address] [facility] [address] [place] [address] Sena Dominguez [place] [address] [facility] [place] [address] documented as of this encounter Visit Diagnoses Not on filedocumented in this encounter Care Teams Subpoena Server Relationship Specialty Start Date End Date Meme Steel MD [address] [place] [address] 105 [place] [address] PCP - General Pediatrics 06/05/18 04/25/22 No Pcp, Pcp PCP - General 06/08/22 07/19/22 Guadalupe Mcbride MD PCP - General Family Medicine 07/20/22 11/01/23 Sena Dominguez PA [address] [place] [address] [place] [address] PCP - BRADY Physician Senior Laboratory Technician 11/02/23 Levy Barry MD [address] [place] [address] [place] [address] PCP - General Family Medicine 12/20/23 documented as of this encounter
--- OUTSIDE RECORDS SUMMARY | 2025-07-26 15:26 | XMS_ITS | Encounter Summary ---
Author Organization [facility] work ([facility]) Address [address] [place] [address] Care Team Providers Care Certified Activities Director Name Role Phone Meme Steel MD Primary Care Provider [phone] Pcp, Pcp Primary Care Provider Unavailabl Guadalupe Bardales MD Primary Care Provider [phone] Sena Dominguez Unavailable [phone] Levy Barry MD Primary Care Provider Unavailab le Source Comments The information that you have received may contain highly confidential and/or federally protected health information. This information has been disclosed to you from records protected by [facility]. The law prohibits you from [...] contact the sender immediately.[facility] ([facility]) Encounter Details Date Type Department Care Team (Late st Contact Info) Description 04/10/2009 Historical Note [facility] [employer] System Devyn Vásquez MD [address] [place] [phone] Social History Tobacco Use Types Packs/Day Years [...] Visit LEATHA CARRILLO - [facility] [address] [facility] [address] [place] [phone] Brenda Clay MD [address] [facility] [address] [place] [phone] 04/15/2026 10:00 AM EDT Office Visit [facility] [place] + [facility] [address] [facility] [address] [place] [address] Sena Dominguez PA [address] [facility] [place] [address] documented as of this encounter Visit Diagnoses Not on filedocumented in this encounter Care Teams Certified Activities Director Relationship Specialty Start Date End Date Meme Steel MD [address] [place] [address] 105 [place] [address] PCP - General Pediatrics 06/05/18 04/25/22 No Pcp, Pcp PCP - General 06/08/22 07/19/22 Guadalupe Mcbride MD PCP - General Family Medicine 07/20/22 11/01/23 Sena Dominguez PA [address] [place] [address] [place] [address] PCP - BRADY Physician Oyster Picker 11/02/23 Levy Barry MD [address] [place] [address] [place] [address] PCP - General Family Medicine 12/20/23 documented as of this encounter
--- OUTSIDE RECORDS SUMMARY | 2025-07-26 15:26 | XMS_ITS | Encounter Summary ---
Author Organization [facility] work ([facility]) Address [address] [place] [address] Care Team Providers Care White Kid Buffer Name Role Phone Meme Steel MD Primary Care Provider [phone] Pcp, Pcp Primary Care Provider Unavailabl Guadalupe Bardales MD Primary Care Provider [phone] Sena Dominguez Unavailable [phone] Levy Barry MD Primary Care Provider Unavailab le Source Comments The information that you have received may contain highly confidential and/or federally protected health information. This information has been disclosed to you from records protected by [employer] [facility]. The law prohibits you [...] contact the sender immediately.[facility] ([facility]) Encounter Details Date Type Department Care Team (Late st Contact Info) Description 11/07/2014 Historical Note [facility] [employer] System Devyn Vásquez MD [address] [place] [address] [id number] Social History Tobacco Use Types Packs/Day Years [...] Visit LEATHA CARRILLO - [facility] [address] [facility] [address] [place] [phone] Brenda Clay MD [address] [facility] [address] [place] [address] 04/15/2026 10:00 AM EDT Office Visit [facility]HA [facility] + [facility] [address] [facility] [address] [place] [address] Sena Dominguez PA [address] [facility] [place] [address] documented as of this encounter Visit Diagnoses Not on filedocumented in this encounter Care Teams White Kid Buffer Relationship Specialty Start Date End Date Meme Steel MD [address] [place] [address] 105 [place] [address] PCP - General Pediatrics 06/05/18 04/25/22 No Pcp, Pcp PCP - General 06/08/22 07/19/22 Guadalupe Mcbride MD PCP - General Family Medicine 07/20/22 11/01/23 Sena Dominguez PA [address] [place] [address] [place] [address] PCP - BRADY Physician Adviser Sales 11/02/23 Levy Barry MD [address] [place] [address] [place] [address] PCP - General Family Medicine 12/20/23 documented as of this encounter
--- OUTSIDE RECORDS SUMMARY | 2025-07-26 15:26 | XMS_ITS | Encounter Summary ---
Author Organization [facility] work ([facility]) Address [address] [place] [address] Care Team Providers Care Weight Loss Sales Consultant Name Role Phone Meme Steel MD Primary Care Provider [phone] Pcp, Pcp Primary Care Provider Unavailabl Guadalupe Bardales MD Primary Care Provider [phone] Sena Dominguez Unavailable [phone] Levy Barry MD Primary Care Provider Unavailab le Source Comments The information that you have received may contain highly confidential and/or federally protected health information. This information has been disclosed to you from records protected by [facility]. The law prohibits you from making [...] in error, please contact the sender immediately.[facility] ([facility]) Encounter Details Date Type Department Care Team (Late st Contact Info) Description 06/18/2014 Historical Note [facility] [employer] System Devyn Vásquez MD [address] [place] [address] [phone] Social History Tobacco Use Types Packs/Day Years [...] - [facility] [address] [facility] [address] [place] [phone] Brenda Clay MD [address] [facility] [address] [place] [address] 04/15/2026 10:00 AM EDT Office Visit [facility] at [facility] + [facility] [address] [facility] [address] [place] [address] Sena Dominguez PA [address] [facility] [place] [address] documented as of this encounter Visit Diagnoses Not on filedocumented in this encounter Care Teams Weight Loss Sales Consultant Relationship Specialty Start Date End Date Meme Steel MD [address] [place] [address] 105 [place] [address] PCP - General Pediatrics 06/05/18 04/25/22 No Pcp, Pcp PCP - General 06/08/22 07/19/22 Guadalupe Mcbride MD PCP - General Family Medicine 07/20/22 11/01/23 Sena Dominguez PA [address] [place] [address] [place] [address] PCP - BRADY Physician Ibm Websphere Commerce Developer 11/02/23 Levy Barry MD [address] [place] [address] [place] [address] PCP - General Family Medicine 12/20/23 documented as of this encounter
--- OUTSIDE RECORDS SUMMARY | 2025-07-26 15:26 | XMS_ITS | Encounter Summary ---
Author Organization [facility] work ([facility]) Address [address] [place] [address] Care Team Providers Care Cosmetic Maker Name Role Phone Meme Steel MD Primary Care Provider [phone] Pcp, Pcp Primary Care Provider Unavailabl Guadalupe Bardales MD Primary Care Provider [phone] Sena Dominguez Unavailable [phone] Levy Barry MD Primary Care Provider Unavailab le Source Comments The information that you have received may contain highly confidential and/or federally protected health information. This information has been disclosed to you from records protected by [facility]. The law prohibits you from [...] please contact the sender immediately.[facility] ([facility]) Encounter Details Date Type Department Care Team (Late st Contact Info) Description 05/20/2014 Historical Note [facility] [employer] System Devyn Vásquez MD [address] [place] [address] [id number] Social History Tobacco Use Types Packs/Day Years [...] LEATHA CARRILLO - [facility] [address] [facility] [address] [place] [phone] Brenda Clay MD [address] [facility] [address] [place] [address] 04/15/2026 10:00 AM EDT Office Visit [facility] at [facility] + [facility] [address] [facility] [address] [place] [address] Sena Dominguez PA [address] [facility] [place] [address] documented as of this encounter Visit Diagnoses Not on filedocumented in this encounter Care Teams Cosmetic Maker Relationship Specialty Start Date End Date Meme Steel MD [address] [place] [address] 105 [place] [address] PCP - General Pediatrics 06/05/18 04/25/22 No Pcp, Pcp PCP - General 06/08/22 07/19/22 Guadalupe Mcbride MD PCP - General Family Medicine 07/20/22 11/01/23 Sena Dominguez PA [address] [place] [address] [place] [address] PCP - BRADY Physician Wool Hat Forming Machine Tender 11/02/23 Levy Barry MD [address] [place] [address] [place] [address] PCP - General Family Medicine 12/20/23 documented as of this encounter
--- OUTSIDE RECORDS SUMMARY | 2025-07-26 15:26 | XMS_ITS | Encounter Summary ---
Author Organization [facility] work ([facility]) Address [address] [place] [address] Care Team Providers Care Insurance Investigator Name Role Phone Meme Steel MD Primary Care Provider [phone] Pcp, Pcp Primary Care Provider Unavailabl Guadalupe Bradales MD Primary Care Provider [phone] Sena Dominguez Unavailable [phone] Levy Barry MD Primary Care Provider Unavailab le Source Comments The information that you have received may contain highly confidential and/or federally protected health information. This information has been disclosed to you from records protected by [employer]. The law prohibits you [...] please contact the sender immediately.[facility] ([facility]) Encounter Details Date Type Department Care Team (Late st Contact Info) Description 08/21/2014 Historical Note [facility] [employer] System Devyn Vásquez MD [address] [place] [address] [phone] Social History Tobacco Use Types Packs/Day Years [...] Visit LEATHA CARRILLO - [facility] [address] [facility] [address] [place] [phone] Brenda Clay MD [address] [facility] [address] [place] [phone] 04/15/2026 10:00 AM EDT Office Visit [facility] at [facility] + [facility] [address] [facility] [address] [place] [address] Sena Dominguez PA [address] [facility] [place] [address] documented as of this encounter Visit Diagnoses Not on filedocumented in this encounter Care Teams Insurance Investigator Relationship Specialty Start Date End Date Meme Steel MD [address] [place] [address] 105 [place] [address] PCP - General Pediatrics 06/05/18 04/25/22 No Pcp, Pcp PCP - General 06/08/22 07/19/22 Guadalupe Mcbride MD PCP - General Family Medicine 07/20/22 11/01/23 Sena Dominguez PA [address] [place] [address] [place] [address] PCP - BRADY Physician Floriculture Teacher 11/02/23 Levy Barry MD [address] [place] [address] [place] [address] PCP - General Family Medicine 12/20/23 documented as of this encounter
--- OUTSIDE RECORDS SUMMARY | 2025-07-26 15:26 | XMS_ITS | Encounter Summary ---
Author Organization [facility] work ([facility]) Address [address] [facility] [facility] [address] [address] [place] [address] Care Team Providers Care Manager Er Name Role Phone Meme Steel MD Primary Care Provider [phone] Pcp, Pcp Primary Care Provider Unavailabl Guadalupe Bardales MD Primary Care Provider [phone] Sena Dominguez Unavailable [phone] Levy Barry MD Primary Care Provider Unavailab le Source Comments The information that you have received may contain highly confidential and/or federally protected health information. This information has been disclosed to you from records protected by [facility]. The law prohibits you from [...] in error, please contact the sender immediately.[facility] ([facility]) Encounter Details Date Type Department Care Team (Late st Contact Info) Description 01/04/2008 Historical Note [facility] [employer] System Devyn Vásquez MD [address] [place] [address] [phone] Social History Tobacco Use Types Packs/Day Years [...] LEATHA CARRILLO - [facility] [address] [facility] [address] [place] [phone] Brenda Clay MD [address] [facility] [address] [place] [phone] 04/15/2026 10:00 AM EDT Office Visit [facility]HA [facility] at [facility] [address] [facility] [address] [place] [address] Sena Dominguez PA [address] [facility] [place] [address] documented as of this encounter Visit Diagnoses Not on filedocumented in this encounter Care Teams Manager Er Relationship Specialty Start Date End Date Meme Steel MD [address] [place] [address] 105 [place] [address] PCP - General Pediatrics 06/05/18 04/25/22 No Pcp, Pcp PCP - General 06/08/22 07/19/22 Guadalupe Mcbride MD PCP - General Family Medicine 07/20/22 11/01/23 Sena Dominguez PA [address] [place] [address] [place] [address] PCP - BRADY Physician Chief Deputy Coroner 11/02/23 Levy Barry MD [address] [place] [address] [place] [address] PCP - General Family Medicine 12/20/23 documented as of this encounter
--- OUTSIDE RECORDS SUMMARY | 2025-07-26 15:26 | XMS_ITS | Encounter Summary ---
Author Organization [facility] work ([facility]) Address [address] [place] [address] Care Team Providers Care Cub Reporter Name Role Phone Meme Steel MD Primary Care Provider [phone] Pcp, Pcp Primary Care Provider Unavailabl Guadalupe Bardales MD Primary Care Provider [phone] Sena Dominguez Unavailable [phone] Levy Barry MD Primary Care Provider Unavailab le Source Comments The information that you have received may contain highly confidential and/or federally protected health information. This information has been disclosed to you from records protected by [facility]. The law prohibits you from [...] please contact the sender immediately.[facility] ([facility]) Encounter Details Date Type Department Care Team (Late st Contact Info) Description 03/09/2005 Historical Note [facility] [employer] System Devyn Vásquez MD [address] [place] [address] [phone] Social History Tobacco Use Types Packs/Day Years [...] CARRILLO - [facility] [address] [facility] [address] [place] [phone] Brenda Clay MD [address] [facility] [address] [place] [address] 04/15/2026 10:00 AM EDT Office Visit LEATHA [facility] at [facility] + [facility] [address] [facility] [address] [place] [address] Sena Dominguez PA [address] [facility] [place] [address] documented as of this encounter Visit Diagnoses Not on filedocumented in this encounter Care Teams Cub Reporter Relationship Specialty Start Date End Date Meme Steel MD [address] [place] [address] 105 [place] [address] PCP - General Pediatrics 06/05/18 04/25/22 No Pcp, Pcp PCP - General 06/08/22 07/19/22 Guadalupe Mcbride MD PCP - General Family Medicine 07/20/22 11/01/23 Sena Dominguez PA [address] [place] [address] [place] [address] PCP - BRADY Physician Electron Beam Machine Welder Setter 11/02/23 Levy Barry MD [address] [place] [address] [place] [address] PCP - General Family Medicine 12/20/23 documented as of this encounter
--- OUTSIDE RECORDS SUMMARY | 2025-07-26 15:26 | XMS_ITS | Encounter Summary ---
Author Organization [facility] work ([facility] Address [address] [place] [address] Care Team Providers Care Compensation And Benefits Administrator Name Role Phone Meme Steel MD Primary Care Provider [phone] Pcp, Pcp Primary Care Provider Unavailabl Guadalupe Bardales MD Primary Care Provider [phone] Sena Dominguez Unavailable [phone] Levy Barry MD Primary Care Provider Unavailab le Source Comments The information that you have received may contain highly confidential and/or federally protected health information. This information has been disclosed to you from records protected by [employer] [facility] [employer] [facility]. The law prohibits you from making [...] in error, please contact the sender immediately.[facility] ([facility] Encounter Details Date Type Department Care Team (Late st Contact Info) Description 03/03/2005 Historical Note [facility] [employer] System Devyn Vásquez MD [address] [place] [address] [phone] Social History Tobacco Use Types Packs/Day Years [...] LEATHA CARRILLO - [facility] [address] [facility] [address] [place] [phone] Brenda Clay MD [address] [facility] [address] [place] [address] 04/15/2026 10:00 AM EDT Office Visit LE[facility]HA [facility] at [facility] + [facility] [address] [facility] [address] [place] [address] Sena Dominguez PA [address] [facility] [place] [address] documented as of this encounter Visit Diagnoses Not on filedocumented in this encounter Care Teams Compensation And Benefits Administrator Relationship Specialty Start Date End Date Meme Steel MD [address] [place] [address] 105 [place] [address] PCP - General Pediatrics 06/05/18 04/25/22 No Pcp, Pcp PCP - General 06/08/22 07/19/22 Guadalupe Mcbride MD PCP - General Family Medicine 07/20/22 11/01/23 Sena Dominguez PA [address] [place] [address] [place] [address] PCP - BRADY Physician Dinkey Operator Slate 11/02/23 Levy Barry MD [address] [place] [address] [place] [address] PCP - General Family Medicine 12/20/23 documented as of this encounter
--- OUTSIDE RECORDS SUMMARY | 2025-07-26 15:26 | XMS_ITS | Encounter Summary ---
Author Organization [facility] work ([facility]) Address [address] [place] [address] Care Team Providers Care Surgical Orderly Name Role Phone Meme Steel MD Primary Care Provider [phone] Pcp, Pcp Primary Care Provider Unavailabl Guadalupe Bardales MD Primary Care Provider [phone] Sena Dominguez Unavailable [phone] Levy Barry MD Primary Care Provider Unavailab le Source Comments The information that you have received may contain highly confidential and/or federally protected health information. This information has been disclosed to you from records protected by [facility]. The law prohibits you from [...] information in error, please contact the sender immediately.[facility] ([facility]) Encounter Details Date Type Department Care Team (Late st Contact Info) Description 01/03/2008 Historical Note [facility] [employer] System Devyn Vásquez MD [address] [place] [address] [phone] Social History Tobacco Use Types Packs/Day Years [...] Visit LEATHA CARRILLO - [facility] [address] [facility] [address] [place] [phone] Brenda Clay MD [address] [facility] [address] [place] [address] 04/15/2026 10:00 AM EDT Office Visit LE[facility]HA [facility] + [facility] [address] [facility] [address] [place] [address] Sena Dominguez PA [address] [facility] [place] [address] documented as of this encounter Visit Diagnoses Not on filedocumented in this encounter Care Teams Surgical Orderly Relationship Specialty Start Date End Date Meme Steel MD [address] [place] [address] 105 [place] [address] PCP - General Pediatrics 06/05/18 04/25/22 No Pcp, Pcp PCP - General 06/08/22 07/19/22 Guadalupe Mcbride MD PCP - General Family Medicine 07/20/22 11/01/23 Sena Dominguez PA [address] [place] [address] [place] [address] PCP - BRADY Physician Personal Banking Representative 11/02/23 Levy Barry MD [address] [place] [address] [place] [address] PCP - General Family Medicine 12/20/23 documented as of this encounter
--- OUTSIDE RECORDS SUMMARY | 2025-07-26 15:26 | XMS_ITS | Encounter Summary ---
Author Organization [facility] work ([facility]) Address [address] [place] [address] Care Team Providers Care Program Management Intern Name Role Phone Sena Dominguez Unavailable [phone] Levy Barry MD Primary Care Provider Unavailab le Source Comments The information that you have received may contain highly confidential and/or federally protected health information. This information has been disclosed to you from records protected by [email or web address]. The law prohibits you from making any [...] please contact the sender immediately.[facility] ([facility]) Encounter Details Date Type Department Care Team (Latest Contact Info) Description 07/07/2025 Results Follow-Up [facility] Primary Care at [facility] + [facility] [address] [place] [phone] Annel Jhaveri PA [address] [place] [phone] Comprehensive metabolic panel, CBC and differential, Lipid panel w/Reflex to Direct LDL Social History Tobacco Use Types Packs/Day Years Used Date Smoking Tobacco: Never Smokeless Tobacco: Never Alcohol Use Standard Drinks/Week Comments Never 0 [...] 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 1 01/31/2025 Alcohol and Drug Use [...] Recorded In the past 12 months has [employer], gas, oil, or water [employer]ander (f. [employer]) threatened to shut off services in your home? No 01/31/2025 Comments No Sex and Gender Information Value Date Recorded Sex Assigned at Not on file Legal Sex Female 1:04 AM EDT Gender Identity Not on file Sexual Orientation Not on file documented as of this encounter Plan of Treatment Upcoming Encounters Date Type Department Care Team ([facility] Contact Info) Description 10/10/2025 10:00 AM EST Office Visit LEATHA CARRILLO [facility] [address] [place] [address] [address] [place] [phone] Brenda Clay MD [address] [place] [address] [place] [phone] 04/15/2026 10:00 AM EDT Office Visit LEATHA Primary Care at [facility] + [address] [place] [phone] Sena Dominguez PA [address] [place] [address] [place] [address] documented as of this encounter Goals Goal Patient Goal Type Associated Problems Recent Progress Patient-Stated? Author Water intake Diet No Teena Snyder RD Note: At least 4, 17 ounces water daily Increase Exercise Exercise Yes Teena Snyder RD Note: Walk dog: at lest 1 x week for 10 minutes (alf goal of 150 minutes planned movement weekly) Plan meals Lifestyle No Teena Snyder RD Note: 3 healthy meals each day with 0-1 snack. Eat breakfast within 2 hours of waking up. Meals spaced 4-5 hours apart. Healthy snacking if meals longer than 5 hours apart. Stop eating within 2 hours of bedtime. documented as of this encounter Visit Diagnoses Not on filedocumented in this encounter Additional Health Concerns Assessment Noted Time PHQ-9 Depression Total Score: 0 04/08/20 8:47 AM EDT PHQ-2 Depression Total Score: 0 04/08/20 8:47 AM EDT documented as of this encounter Care Teams Program Management Intern Relationship Specialty Start Date End Date Sena Dominguez PA [address] [place] [address] [place] [address] PCP - BRADY Physician Welder Manufacture 11/02/23 Levy Barry MD [address] [place] [address] [place] [address] PCP - General Family Medicine 12/20/23 documented as of this encounter
--- OUTSIDE RECORDS SUMMARY | 2025-07-26 15:26 | XMS_ITS | Encounter Summary ---
Author Organization [facility] work ([facility]) Address [address] [place] [address] Care Team Providers Care Car Sales Representative Name Role Phone Meme Steel MD Primary Care Provider [phone] Pcp, Pcp Primary Care Provider Unavailabl Guadalupe Bardales MD Primary Care Provider Sena Dominguez Unavailable [phone] Levy Barry MD Primary Care Provider Unavailab le Source Comments The information that you have received may contain highly confidential and/or federally protected health information. This information has been disclosed to you from records protected by [facility]. The law prohibits you from [...] error, please contact the sender immediately.[facility] ([facility]) Encounter Details Date Type Department Care Team (Late st Contact Info) Description 10/02/2007 Historical Note [facility] Tagorize System Devyn Vásquez MD [address] [place] [address] [phone] Social History Tobacco Use Types Packs/Day Years [...] - [facility] [address] [place] [phone] Brenda Clay MD [address] [facility] [address] [place] [phone] 04/15/2026 10:00 AM EDT Office Visit LEATHA Primary Care at [facility] + [facility] [address] [place] [phone] Sena Dominguez PA [address] [place] [address] documented as of this encounter Visit Diagnoses Not on filedocumented in this encounter Care Teams Car Sales Representative Relationship Specialty Start Date End Date Meme Steel MD [address] [place] [address] [address] [place] [address] PCP - General Pediatrics 06/05/18 04/25/22 No Pcp, Pcp PCP - General 06/08/22 07/19/22 Guadalupe Mcbride MD PCP - General Family Medicine 07/20/22 11/01/23 Sena Dominguez PA [address] [place] [address] [place] [address] PCP - BRADY Physician Benefits Sales Consultant 11/02/23 Levy Barry MD [address] [place] [address] [place] [address] PCP - General Family Medicine 12/20/23 documented as of this encounter
--- OUTSIDE RECORDS SUMMARY | 2025-07-26 15:26 | XMS_ITS | Encounter Summary ---
Author Organization [facility] work ([facility]) Address [address] [place] [address] Care Team Providers Care Housekeeper Home Name Role Phone Meme Steel MD Primary Care Provider [phone] Pcp, Pcp Primary Care Provider Unavailabl Guadalupe Bardales MD Primary Care Provider [phone] Sena Dominguez Unavailable [phone] Levy Barry MD Primary Care Provider Unavailab le Source Comments The information that you have received may contain highly confidential and/or federally protected health information. This information has been disclosed to you from records protected by [employer] [facility]. The law prohibits you [...] please contact the sender immediately.[facility] ([facility]) Encounter Details Date Type Department Care Team (Late st Contact Info) Description 06/16/2014 Historical Note [facility] HealthEdge System Devyn Vásquez MD [address] [place] [address] [phone] Social History Tobacco Use Types Packs/Day Years [...] Visit LEATHA CARRILLO - [facility] [address] [place] [phone] Brenda Clay MD [address] [facility] [address] [place] [phone] 04/15/2026 10:00 AM EDT Office Visit LEATHA Primary Care at [facility] + [facility] [address] [place] [phone] Sena Dominguez PA [address] [facility] [facility] [place] [address] documented as of this encounter Visit Diagnoses Not on filedocumented in this encounter Care Teams Housekeeper Home Relationship Specialty Start Date End Date Meme Steel MD [address] [place] [address] [place] [address] PCP - General Pediatrics 06/05/18 04/25/22 No Pcp, Pcp PCP - General 06/08/22 07/19/22 Guadalupe Mcbride MD PCP - General Family Medicine 07/20/22 11/01/23 Sena Dominguez PA [address] [place] [address] [place] [address] PCP - BRADY Physician Controls Technician 11/02/23 Levy Barry MD [address] [place] [address] [place] [address] PCP - General Family Medicine 12/20/23 documented as of this encounter
--- OUTSIDE RECORDS SUMMARY | 2025-07-26 15:26 | XMS_ITS | Encounter Summary ---
Author Organization [facility] work ([facility]) Address [address] [place] [address] Care Team Providers Care Emissions Repair Technician Name Role Phone Meme Steel MD Primary Care Provider [phone] Pcp, Pcp Primary Care Provider Unavailabl Guadalupe Bardales MD Primary Care Provider [phone] Sena Dominguez Unavailable [phone] Levy Barry MD Primary Care Provider Unavailab le Source Comments The information that you have received may contain highly confidential and/or federally protected health information. This information has been disclosed to you from records protected by [facility]. The law prohibits you [...] contact the sender immediately.[facility] ([facility]) Encounter Details Date Type Department Care Team (Late st Contact Info) Description 02/18/2014 Historical Note [facility] Vital Metrix System Devyn Vásquez MD [address] [place] [address] [phone] Social History Tobacco Use Types Packs/Day Years [...] CARRILLO - [facility] at [facility] [address] [facility] [address] [place] [phone] Brenda Clay MD [address] [facility] [address] [place] [phone] 04/15/2026 10:00 AM EDT Office Visit LEATHA Primary Care at [facility] + [facility] [address] [place] [phone] Sena Dominguez PA [address] [facility] [place] [address] documented as of this encounter Visit Diagnoses Not on filedocumented in this encounter Care Teams Emissions Repair Technician Relationship Specialty Start Date End Date Meme Steel MD [address] [place] [address] 105 [place] [address] PCP - General Pediatrics 06/05/18 04/25/22 No Pcp, Pcp PCP - General 06/08/22 07/19/22 Guadalupe Mcbride MD PCP - General Family Medicine 07/20/22 11/01/23 Sena Dominguez PA [address] [place] [address] [place] [address] PCP - BRADY Physician Shirt Folder 11/02/23 Levy Barry MD [address] [place] [address] [place] [address] PCP - General Family Medicine 12/20/23 documented as of this encounter
--- OUTSIDE RECORDS SUMMARY | 2025-07-26 15:26 | XMS_ITS | Encounter Summary ---
Author Organization [facility] work ([facility]) Address [address] [place] [address] Care Team Providers Care Machine Molder Squeeze Name Role Phone Meme Steel MD Primary Care Provider [phone] Pcp, Pcp Primary Care Provider Unavailabl Guadalupe Bardales MD Primary Care Provider [phone] Sena Dominguez Unavailable [phone] Levy Barry MD Primary Care Provider Unavailab le Source Comments The information that you have received may contain highly confidential and/or federally protected health information. This information has been disclosed to you from records protected by [facility]. The law prohibits [...] error, please contact the sender immediately.[facility] ([facility]) Encounter Details Date Type Department Care Team (Late st Contact Info) Description 01/01/2008 Historical Note [facility] Executive [employer] System Devyn Vásquez MD [address] [place] [address] [phone] Social History Tobacco Use Types Packs/Day Years [...] CARRILLO - [facility] [address] [address] [place] [phone] Brenda Clay MD [address] [facility] [address] [place] [phone] 04/15/2026 10:00 AM EDT Office Visit LEATHA Primary Care at [facility] + [facility] [address] [facility] [address] [place] [phone] Sena Dominguez PA [address] [facility] [place] [address] documented as of this encounter Visit Diagnoses Not on filedocumented in this encounter Care Teams Machine Molder Squeeze Relationship Specialty Start Date End Date Meme Steel MD [address] [place] [address] [place] [address] PCP - General Pediatrics 06/05/18 04/25/22 No Pcp, Pcp PCP - General 06/08/22 07/19/22 Guadalupe Mcbride MD PCP - General Family Medicine 07/20/22 11/01/23 Sena Dominguez PA [address] [place] [address] [place] [address] PCP - BRADY Physician Network Operations Lead 11/02/23 Levy Barry MD [address] [place] [address] [place] [address] PCP - General Family Medicine 12/20/23 documented as of this encounter
--- OUTSIDE RECORDS SUMMARY | 2025-07-26 15:26 | XMS_ITS | Encounter Summary ---
Author Organization [facility] work ([facility]) Address [address] [place] [address] Care Team Providers Care Traveling Storekeeper Name Role Phone Meme Steel MD Primary Care Provider [phone] Pcp, Pcp Primary Care Provider Unavailabl Guadalupe Bardales MD Primary Care Provider [phone] Sena Dominguez Unavailable [phone] Levy Barry MD Primary Care Provider Unavailab le Source Comments The information that you have received may contain highly confidential and/or federally protected health information. This information has been disclosed to you from records protected by [facility]. The law prohibits you from [...] information in error, please contact the sender immediately.[facility] ([facility]) Encounter Details Date Type Department Care Team (Late st Contact Info) Description 04/10/2009 Historical Note [facility] Onehub System Devny Vásquez MD [address] [place] [address] [phone] Social History Tobacco Use Types Packs/Day Years [...] LEATHA CARRILLO - [facility] [address] [facility] [address] [place] [phone] Brenda Clay MD [address] [facility] [address] [place] [phone] 04/15/2026 10:00 AM EDT Office Visit LEATHA Primary Care at [facility] + [facility] [address] [place] [phone] Sena Dominguez PA [address] [facility] [place] [address] documented as of this encounter Visit Diagnoses Not on filedocumented in this encounter Care Teams Traveling Storekeeper Relationship Specialty Start Date End Date Meme Steel MD [address] [place] [address] [place] [address] PCP - General Pediatrics 06/05/18 04/25/22 No Pcp, Pcp PCP - General 06/08/22 07/19/22 Guadalupe Mcbride MD PCP - General Family Medicine 07/20/22 11/01/23 Sena Dominguez PA [address] [place] [address] [place] [address] PCP - BRADY Physician Thermodynamicist 11/02/23 Levy Barry MD [address] [place] [address] [place] [address] PCP - General Family Medicine 12/20/23 documented as of this encounter
--- OUTSIDE RECORDS SUMMARY | 2025-07-26 15:26 | XMS_ITS | Encounter Summary ---
Author Organization [facility] work ([facility]) Address [address] [place] [address] Care Team Providers Care Paratransit Operator Name Role Phone Meme Steel MD Primary Care Provider [phone] Pcp, Pcp Primary Care Provider Unavailabl Guadalupe Bardales MD Primary Care Provider [phone] Sena Dominguez Unavailable [phone] Levy Barry MD Primary Care Provider Unavailab le Source Comments The information that you have received may contain highly confidential and/or federally protected health information. This information has been disclosed to you from records protected by [employer]. The law prohibits you [...] error, please contact the sender immediately.[facility] ([facility]) Encounter Details Date Type Department Care Team (Late st Contact Info) Description 11/25/2014 Historical Note [facility] Mailgun System Devyn Vásquez MD [address] [place] [address] [phone] Social History Tobacco Use Types Packs/Day Years [...] LEATHA CARRILLO - [facility] [address] [facility] [address] [place] [phone] Brenda Clya MD [address] [facility] [address] [place] [phone] 04/15/2026 10:00 AM EDT Office Visit LEATHA Primary Care at [facility] + [facility] [address] [facility] [address] [place] [address] Sena Dominguez PA [address] [facility] [place] [address] documented as of this encounter Visit Diagnoses Not on filedocumented in this encounter Care Teams Paratransit Operator Relationship Specialty Start Date End Date Meme Steel MD [address] [place] [address] 105 [place] [address] PCP - General Pediatrics 06/05/18 04/25/22 No Pcp, Pcp PCP - General 06/08/22 07/19/22 Guadalupe Mcbride MD PCP - General Family Medicine 07/20/22 11/01/23 Sena Dominguez PA [address] [place] [address] [place] [address] PCP - BRADY Physician Assembler Tubing 11/02/23 Levy Barry MD [address] [place] [address] [place] [address] PCP - General Family Medicine 12/20/23 documented as of this encounter
--- OUTSIDE RECORDS SUMMARY | 2025-07-26 15:26 | XMS_ITS | Encounter Summary ---
Author Organization [facility] work ([facility]) Address [address] [place] [address] Care Team Providers Care Rice Cleaning Machine Tender Name Role Phone Meme Steel MD Primary Care Provider [phone] Pcp, Pcp Primary Care Provider Unavailabl Guadalupe Bardales MD Primary Care Provider [phone] Sena Dominguez Unavailable [phone] Levy Barry MD Primary Care Provider Unavailab le Source Comments The information that you have received may contain highly confidential and/or federally protected health information. This information has been disclosed to you from records protected by [facility]. The law prohibits you from [...] please contact the sender immediately.[facility] ([facility]) Encounter Details Date Type Department Care Team (Late st Contact Info) Description 08/21/2014 Historical Note [facility] First Class EV Conversions System Devyn Vásquez MD [address] [place] [address] [phone] Social History Tobacco Use Types Packs/Day Years [...] Visit LEATHA CARRILLO - [facility] [address] [facility] [address] [place] [phone] Brenda Clay MD [address] [facility] [address] [place] [phone] 04/15/2026 10:00 AM EDT Office Visit LEATHA Primary Care at [facility] + [facility] [address] [facility] [address] [place] [address] Sena Dominguez PA [address] [facility] [place] [address] documented as of this encounter Visit Diagnoses Not on filedocumented in this encounter Care Teams Rice Cleaning Machine Tender Relationship Specialty Start Date End Date Meme Steel MD [address] [place] [address] [place] [address] PCP - General Pediatrics 06/05/18 04/25/22 No Pcp, Pcp PCP - General 06/08/22 07/19/22 Guadalupe Mcbride MD PCP - General Family Medicine 07/20/22 11/01/23 Sena Dominguez PA [address] [place] [address] [place] [address] PCP - BRADY Physician Truck Manager 11/02/23 Levy Barry MD [address] [place] [address] [place] [address] PCP - General Family Medicine 12/20/23 documented as of this encounter
--- OUTSIDE RECORDS SUMMARY | 2025-07-26 15:26 | XMS_ITS | Encounter Summary ---
Author Organization [facility] work ([facility]) Address [address] [place] [address] Care Team Providers Care Hoop Flaring Machine Operator Helper Name Role Phone Meme Steel MD Primary Care Provider [phone] Pcp, Pcp Primary Care Provider Unavailabl Guadalupe Bardales MD Primary Care Provider [phone] Sena Dominguez Unavailable [phone] Levy Barry MD Primary Care Provider Unavailab le Source Comments The information that you have received may contain highly confidential and/or federally protected health information. This information has been disclosed to you from records protected by [facility]. The law prohibits you from [...] sender immediately.[facility] ([facility]) Encounter Details Date Type Department Care Team (Late st Contact Info) Description 11/26/2007 Historical Note [facility] Zoomorama System Devyn Vásquez MD [address] [place] [address] [phone] Social History Tobacco Use Types Packs/Day Years [...] LEATHA CARRILLO - [facility] [address] [facility] [address] [place] [phone] Brenda Clay MD [address] [facility] [address] [place] [address] 04/15/2026 10:00 AM EDT Office Visit LEATHA Primary Care at [facility] + [facility] [address] [facility] [address] [place] [address] Sena Dominguez PA [address] [facility] [place] [address] documented as of this encounter Visit Diagnoses Not on filedocumented in this encounter Care Teams Hoop Flaring Machine Operator Helper Relationship Specialty Start Date End Date Meme Steel MD [address] [place] [address] 105 [place] [address] PCP - General Pediatrics 06/05/18 04/25/22 No Pcp, Pcp PCP - General 06/08/22 07/19/22 Guadalupe Mcbride MD PCP - General Family Medicine 07/20/22 11/01/23 Sena Dominguez PA [address] [place] [address] [place] [address] PCP - BRADY Physician Chemical Sprayer 11/02/23 Levy Barry MD [address] [place] [address] [place] [address] PCP - General Family Medicine 12/20/23 documented as of this encounter
--- OUTSIDE RECORDS SUMMARY | 2025-07-26 15:26 | XMS_ITS | Encounter Summary ---
Author Organization [facility] work ([facility]) Address [address] [place] [address] Care Team Providers Care Folder Inspector Name Role Phone Meme Steel MD Primary Care Provider [phone] Pcp, Pcp Primary Care Provider Unavailabl Guadalupe Bardales MD Primary Care Provider [phone] Sena Dominguez Unavailable [phone] Levy Barry MD Primary Care Provider Unavailab le Source Comments The information that you have received may contain highly confidential and/or federally protected health information. This information has been disclosed to you from records protected by [facility]. The law prohibits you from [...] please contact the sender immediately.[facility] ([facility]) Encounter Details Date Type Department Care Team (Late st Contact Info) Description 06/14/2008 Historical Note [facility] Hedgeable System Devyn Vásquez MD [address] [place] [address] [phone] Social History Tobacco Use Types Packs/Day Years [...] LEATHA CARRILLO - [facility] [address] [facility] [address] [place] [phone] Brenda Clay MD [address] [facility] [address] [place] [address] 04/15/2026 10:00 AM EDT Office Visit [facility] + [facility] [address] [facility] [address] [place] [address] Sena Dominguez PA [address] [facility] [place] [address] documented as of this encounter Visit Diagnoses Not on filedocumented in this encounter Care Teams Folder Inspector Relationship Specialty Start Date End Date Meme Steel MD [address] [place] [address] [place] [address] PCP - General Pediatrics 06/05/18 04/25/22 No Pcp, Pcp PCP - General 06/08/22 07/19/22 Guadalupe Mcbride MD PCP - General Family Medicine 07/20/22 11/01/23 Sena Dominguez PA [address] [place] [address] [place] [address] PCP - BRADY Physician Dispatcher Chief Coal Slurry 11/02/23 Levy Barry MD [address] [place] [address] [place] [address] PCP - General Family Medicine 12/20/23 documented as of this encounter
--- OUTSIDE RECORDS SUMMARY | 2025-07-26 15:26 | XMS_ITS | Encounter Summary ---
Author Organization [facility] work ([facility]) Address [address] [place] [address] Care Team Providers Care Bench Lay Out Technician Name Role Phone Meme Setel MD Primary Care Provider [phone] Pcp, Pcp Primary Care Provider Unavailabl Guadalupe Bardales MD Primary Care Provider [phone] Sena Dominguez Unavailable [phone] Levy Barry MD Primary Care Provider Unavailab le Source Comments The information that you have received may contain highly confidential and/or federally protected health information. This information has been disclosed to you from records protected by [facility]. The law prohibits you from making [...] information in error, please contact the sender immediately.[facility] ([facility]) Encounter Details Date Type Department Care Team (Late st Contact Info) Description 01/07/2016 Historical Note [facility] BaubleBar System Devyn Vásquez MD [address] [place] [address] [phone] Social History Tobacco Use Types Packs/Day Years [...] Visit LEATHA CARRILLO - [facility] [address] [facility] [address] [place] [phone] Brenda Clay MD [address] [facility] [address] [place] [address] 04/15/2026 10:00 AM EDT Office Visit [facility] + [facility] [address] [facility] [address] [place] [address] Sena Dominguez PA [address] [facility] [place] [address] documented as of this encounter Visit Diagnoses Not on filedocumented in this encounter Care Teams Bench Lay Out Technician Relationship Specialty Start Date End Date Meme Steel MD [address] [place] [address] 105 [place] [address] PCP - General Pediatrics 06/05/18 04/25/22 No Pcp, Pcp PCP - General 06/08/22 07/19/22 Guadalupe Mcbride MD PCP - General Family Medicine 07/20/22 11/01/23 Sena Dominguez PA [address] [place] [address] [place] [address] PCP - BRADY Physician Bookmaker'S Clerk 11/02/23 Levy Barry MD [address] [place] [address] [place] [address] PCP - General Family Medicine 12/20/23 documented as of this encounter
--- OUTSIDE RECORDS SUMMARY | 2025-07-26 15:26 | XMS_ITS | Encounter Summary ---
Author Organization [facility] work ([facility]) Address [address] [facility] [address] [address] [place] [address] Care Team Providers Care Edger Machine Operator Name Role Phone Meme Steel MD Primary Care Provider No Pcp, Pcp Primary Care Provider Unavailabl Guadalupe Bardales MD Primary Care Provider [phone] Sena Dominguez Unavailable Levy Barry MD Primary Care Provider Unavailab le Source Comments The information that you have received may contain highly confidential and/or federally protected health information. This information has been disclosed to you from records protected by [facility]. The law prohibits you from making [...] the sender immediately.[facility] ([facility]) Encounter Details Date Type Department Care Team (Late st Contact Info) Description 01/07/2016 Historical Note [facility] TableNOW System Devyn Vásquez MD [address] [place] [address] [phone] Social History Tobacco Use Types Packs/Day Years [...] EST Office Visit LEATHA CARRILLO - [facility] [address] [facility] [address] [place] [phone] Brenda Clay MD 23[address] [facility] [address] [place] [address] 04/15/2026 10:00 AM EDT Office Visit [facility]HA [facility] at [facility] + [facility] [address] [facility] [address] [place] [address] Sena Dominguez PA [address] [facility] [place] [address] documented as of this encounter Visit Diagnoses Not on filedocumented in this encounter Care Teams Edger Machine Operator Relationship Specialty Start Date End Date Meme Steel MD [address] [place] [address] 105 [place] [address] PCP - General Pediatrics 06/05/18 04/25/22 No Pcp, Pcp PCP - General 06/08/22 07/19/22 Guadalupe Mcbride MD PCP - General Family Medicine 07/20/22 11/01/23 Sena Dominguez PA [address] [place] [address] [place] [address] PCP - BRADY Physician House Superintendent 11/02/23 Levy Barry MD [address] [place] [address] [place] [address] PCP - General Family Medicine 12/20/23 documented as of this encounter
--- OUTSIDE RECORDS SUMMARY | 2025-07-26 15:26 | XMS_ITS | Encounter Summary ---
Author Organization [facility] work ([facility]) Address [address] [place] [address] Care Team Providers Care Building Maintenance Technician Name Role Phone Meme Steel MD Primary Care Provider [phone] Pcp, Pcp Primary Care Provider Unavailabl Guadalupe Bardales MD Primary Care Provider [phone] Sena Dominguez Unavailable [phone] Levy Barry MD Primary Care Provider Unavailab le Source Comments The information that you have received may contain highly confidential and/or federally protected health information. This information has been disclosed to you from records protected by [facility]. The law prohibits you from [...] the sender immediately.[facility] [place] ([facility]) Encounter Details Date Type Department Care Team (Late st Contact Info) Description 11/26/2007 Historical Note [facility] [employer] System Devyn Vásquez MD [address] [place] [address] [phone] Social History Tobacco Use Types Packs/Day Years [...] CARRILLO - [facility] [address] [facility] [address] [place] [phone] Brenda Clay MD [address] [facility] [address] [place] [address] 04/15/2026 10:00 AM EDT Office Visit [facility] at [facility] + [facility] [address] [facility] [address] [place] [address] Sena Dominguez PA [address] [facility] [place] [address] documented as of this encounter Visit Diagnoses Not on filedocumented in this encounter Care Teams Building Maintenance Technician Relationship Specialty Start Date End Date Meme Steel MD [address] [place] [address] 105 [place] [address] PCP - General Pediatrics 06/05/18 04/25/22 No Pcp, Pcp PCP - General 06/08/22 07/19/22 Guadalupe Mcbride MD PCP - General Family Medicine 07/20/22 11/01/23 Sena Dominguez PA [address] [place] [address] [place] [address] PCP - BRADY Physician Wrapper Caser 11/02/23 Levy Barry MD [address] [place] [address] [place] [address] PCP - General Family Medicine 12/20/23 documented as of this encounter
--- OUTSIDE RECORDS SUMMARY | 2025-07-26 15:26 | XMS_ITS | Encounter Summary ---
Author Organization [facility] work ([facility]) Address [address] [place] [address] Care Team Providers Care Multicultural Manager Name Role Phone Meme Steel MD Primary Care Provider [phone] No Pcp, Pcp Primary Care Provider Unavailabl Guadalupe Bardales MD Primary Care Provider [phone] Sena Dominguez Unavailable [phone] Levy Barry MD Primary Care Provider Unavailab le Source Comments The information that you have received may contain highly confidential and/or federally protected health information. This information has been disclosed to you from records protected by [facility]. The law prohibits you [...] contact the sender immediately.[facility] ([facility]) Encounter Details Date Type Department Care Team (Late st Contact Info) Description 09/22/2014 Historical Note [facility] [employer] System Devyn Vásquez MD [address] [place] [address] [phone] Social History Tobacco Use Types Packs/Day Years [...] CARRILLO - [facility] [address] [facility] [address] [place] [phone] Brenda Clay MD [address] [facility] [address] [place] [address] 04/15/2026 10:00 AM EDT Office Visit [facility] at [facility] + [facility] [address] [facility] [address] [place] [address] Sena Dominguez PA [address] [facility] [place] [address] documented as of this encounter Visit Diagnoses Not on filedocumented in this encounter Care Teams Multicultural Manager Relationship Specialty Start Date End Date Meme Steel MD [address] [place] [address] 105 [place] [address] PCP - General Pediatrics 06/05/18 04/25/22 No Pcp, Pcp PCP - General 06/08/22 07/19/22 Guadalupe Mcbride MD PCP - General Family Medicine 07/20/22 11/01/23 Sena Dominguez PA [address] [place] [address] [place] [address] PCP - BRADY Physician Cad Operator 11/02/23 Levy Barry MD [address] [place] [address] [place] [address] PCP - General Family Medicine 12/20/23 documented as of this encounter
--- OUTSIDE RECORDS SUMMARY | 2025-07-26 15:26 | XMS_ITS | Encounter Summary ---
Author Organization [facility] work ([facility]) Address [address] [place] [address] Care Team Providers Care Wafer Fabrication Technician Name Role Phone Meme Steel MD Primary Care Provider [phone] Pcp, Pcp Primary Care Provider Unavailabl Guadalupe Bardales MD Primary Care Provider [phone] Sena Dominguez Unavailable [phone] Levy Barry MD Primary Care Provider Unavailab le Source Comments The information that you have received may contain highly confidential and/or federally protected health information. This information has been disclosed to you from records protected by [facility]. The law prohibits you [...] information in error, please contact the sender immediately.[facility] ([facility]) Encounter Details Date Type Department Care Team (Late st Contact Info) Description 01/04/2008 Historical Note [facility] Howcast System Devyn Vásquez MD [address] [place] [address] [phone] Social History Tobacco Use Types Packs/Day Years [...] LEATHA CARRILLO - [facility] [address] [facility] [address] [place] [phone] Brenda Clay MD [address] [facility] [address] [place] [phone] 04/15/2026 10:00 AM EDT Office Visit [facility]HA [facility] [address] [facility] [address] [place] [address] Sena Dominguez PA [address] [facility] [place] [address] documented as of this encounter Visit Diagnoses Not on filedocumented in this encounter Care Teams Wafer Fabrication Technician Relationship Specialty Start Date End Date Meme Steel MD [address] [place] [address] 105 [place] [address] PCP - General Pediatrics 06/05/18 04/25/22 No Pcp, Pcp PCP - General 06/08/22 07/19/22 Guadalupe Mcbride MD PCP - General Family Medicine 07/20/22 11/01/23 Sena Dominguez PA [address] [place] [address] [place] [address] PCP - BRADY Physician Break And Load Operator 11/02/23 Levy Barry MD [address] [place] [address] [place] [address] PCP - General Family Medicine 12/20/23 documented as of this encounter
--- OUTSIDE RECORDS SUMMARY | 2025-07-26 15:27 | XMS_ITS | Encounter Summary ---
Author Organization [facility] work ([facility]) Address [address] [place] [address] Care Team Providers Care Distributor Sales Consultant Name Role Phone Meme Steel MD Primary Care Provider [phone] Pcp, Pcp Primary Care Provider Unavailabl Guadalupe Bardales MD Primary Care Provider [phone] Sena Dominguez Unavailable [phone] Levy Barry MD Primary Care Provider Unavailab le Source Comments The information that you have received may contain highly confidential and/or federally protected health information. This information has been disclosed to you from records protected by [facility]. The law prohibits you from making [...] please contact the sender immediately.[facility] ([facility]) Encounter Details Date Type Department Care Team (Late st Contact Info) Description 09/17/2013 Historical Note [facility] Dis[employer]ol Technologies System Devyn Vásquez MD [address] [place] [address] [phone] Social History Tobacco Use Types Packs/Day Years [...] LEATHA CARRILLO - [facility] [address] [facility] [address] [place] [phone] Brenda Clay MD [address] [facility] [address] [place] [address] 04/15/2026 10:00 AM EDT Office Visit [facility] + [facility] [address] [facility] [address] [place] [address] Sena Dominguez PA [address] [facility] [place] [address] documented as of this encounter Visit Diagnoses Not on filedocumented in this encounter Care Teams Distributor Sales Consultant Relationship Specialty Start Date End Date Meme Steel MD [address] [place] [address] 105 [place] [address] PCP - General Pediatrics 06/05/18 04/25/22 No Pcp, Pcp PCP - General 06/08/22 07/19/22 Guadalupe Mcbride MD PCP - General Family Medicine 07/20/22 11/01/23 Sena Dominguez PA [address] [place] [address] [place] [address] PCP - BRADY Physician Hackler Doll Wigs 11/02/23 Levy Barry MD [address] [place] [address] [place] [address] PCP - General Family Medicine 12/20/23 documented as of this encounter
--- OUTSIDE RECORDS SUMMARY | 2025-07-26 15:27 | XMS_ITS | Encounter Summary ---
Author Organization [facility] work ([facility]) Address [address] [facility] [address] [address] [place] [address] Care Team Providers Care Non Food Receiving Clerk Name Role Phone Meme Steel MD Primary Care Provider [phone] No Pcp, Pcp Primary Care Provider Unavailabl Guadalupe Bardales MD Primary Care Provider Sena Dominguez Unavailable [phone] Levy Barry MD Primary Care Provider Unavailab le Source Comments The information that you have received may contain highly confidential and/or federally protected health information. This information has been disclosed to you from records protected by [facility]. The law prohibits you from making [...] in error, please contact the sender immediately.[facility] ([facility]) Encounter Details Date Type Department Care Team (Late st Contact Info) Description 09/22/2014 Historical Note [facility] Earth [employer] System Devny Vásquez MD [address] [place] [address] [phone] Social History Tobacco Use Types Packs/Day [...] LEATHA CARRILLO - [facility] [address] [facility] [address] [place] [phone] Brenda Clay MD [address] [facility] [address] [place] [address] 04/15/2026 10:00 AM EDT Office Visit LEATHA [facility] at [facility] [address] [facility] [address] [place] [address] Sena Dominguez PA [address] [facility] [place] [address] documented as of this encounter Visit Diagnoses Not on filedocumented in this encounter Care Teams Non Food Receiving Clerk Relationship Specialty Start Date End Date Meme Steel MD [address] [place] [address] 105 [place] [address] PCP - General Pediatrics 06/05/18 04/25/22 No Pcp, Pcp PCP - General 06/08/22 07/19/22 Guadalupe Mcbride MD PCP - General Family Medicine 07/20/22 11/01/23 Sena Dominguez PA [address] [place] [address] [place] [address] PCP - RBADY Physician Bulk Picker 11/02/23 Levy Barry MD [address] [place] [address] [place] [address] PCP - General Family Medicine 12/20/23 documented as of this encounter
--- OUTSIDE RECORDS SUMMARY | 2025-07-26 15:27 | XMS_ITS | Encounter Summary ---
Author Organization [facility] work ([facility]) Address [address] [facility] [address] [address] [place] [address] Care Team Providers Care Sparker And Patcher Name Role Phone Meme Steel MD Primary Care Provider [phone] Pcp, Pcp Primary Care Provider Unavailabl Guadalupe Bardales MD Primary Care Provider [phone] Sena Dominguez Unavailable [phone] Levy Barry MD Primary Care Provider Unavailab le Source Comments The information that you have received may contain highly confidential and/or federally protected health information. This information has been disclosed to you from records protected by [facility]. The law prohibits you from [...] error, please contact the sender immediately.[facility] ([facility]) Encounter Details Date Type Department Care Team (Late st Contact Info) Description 08/13/2013 Historical Note [facility] [employer] System Devyn Vásquez MD [address] [place] [address] [phone] Social History Tobacco Use Types Packs/Day Years [...] EST Office Visit LEATHA CARRILLO - [facility] [address] [facility] [address] [place] [phone] Brenda Clay MD [address] [facility] [address] [place] [address] 04/15/2026 10:00 AM EDT Office Visit [facility]HA [facility] [address] [facility] [address] [place] [address] Sena Dominguez PA [address] [facility] [place] [address] documented as of this encounter Visit Diagnoses Not on filedocumented in this encounter Care Teams Sparker And Patcher Relationship Specialty Start Date End Date Meme Steel MD [address] [place] [address] 105 [place] [address] PCP - General Pediatrics 06/05/18 04/25/22 No Pcp, Pcp PCP - General 06/08/22 07/19/22 Guadalupe Mcbride MD PCP - General Family Medicine 07/20/22 11/01/23 Sena Dominguez PA [address] [place] [address] [place] [address] PCP - BRADY Physician Event Representative 11/02/23 Levy Barry MD [address] [place] [address] [place] [address] PCP - General Family Medicine 12/20/23 documented as of this encounter
--- OUTSIDE RECORDS SUMMARY | 2025-07-26 15:27 | XMS_ITS | Encounter Summary ---
Author Organization [facility] work ([facility]) Address [address] [place] [address] Care Team Providers Care Can Filling And Closing Machine Tender Name Role Phone Meme Steel MD Primary Care Provider [phone] Pcp, Pcp Primary Care Provider Unavailabl Guadalupe Bardales MD Primary Care Provider [phone] Sena Dominguez Unavailable [phone] Levy Barry MD Primary Care Provider Unavailab le Source Comments The information that you have received may contain highly confidential and/or federally protected health information. This information has been disclosed to you from records protected by [facility]. The law prohibits you from [...] in error, please contact the sender immediately.[facility] ([facility]) Encounter Details Date Type Department Care Team (Late st Contact Info) Description 09/17/2013 Historical Note [facility] Leap System Devyn Vásquez MD [address] [place] [address] [phone] Social History Tobacco Use Types Packs/Day Years [...] LEATHA CARRILLO - [facility] [address] [facility] [address] [place] [phone] Brenda Clay MD [address] [facility] [address] [place] [address] 04/15/2026 10:00 AM EDT Office Visit [facility]HA [facility] + [facility] [address] [facility] [address] [place] [address] Sena Dominguez PA [address] [facility] [place] [address] documented as of this encounter Visit Diagnoses Not on filedocumented in this encounter Care Teams Can Filling And Closing Machine Tender Relationship Specialty Start Date End Date Meme Steel MD [address] [place] [address] 105 [place] [address] PCP - General Pediatrics 06/05/18 04/25/22 No Pcp, Pcp PCP - General 06/08/22 07/19/22 Guadalupe Mcbride MD PCP - General Family Medicine 07/20/22 11/01/23 Sena Dominguez PA [address] [place] [address] [place] [address] PCP - BRADY Physician Electronic Organ Mechanic 11/02/23 Levy Barry MD [address] [place] [address] [place] [address] PCP - General Family Medicine 12/20/23 documented as of this encounter
--- OUTSIDE RECORDS SUMMARY | 2025-07-26 15:27 | XMS_ITS | Encounter Summary ---
Author Organization [facility] work ([facility]) Address [address] [place] [address] Care Team Providers Care Fisher Name Role Phone Meme Steel MD Primary Care Provider [phone] Pcp, Pcp Primary Care Provider Unavailabl Guadalupe Bardales MD Primary Care Provider [phone] Sena Dominguez Unavailable [phone] Levy Barry MD Primary Care Provider Unavailab le Source Comments The information that you have received may contain highly confidential and/or federally protected health information. This information has been disclosed to you from records protected by [employer]. The law prohibits you from [...] contact the sender immediately.[facility] ([facility]) Encounter Details Date Type Department Care Team (Late st Contact Info) Description 01/14/2013 Historical Note [facility] Comply365 System Devyn Vásquez MD [address] [place] [address] [phone] Social History Tobacco Use Types Packs/Day Years [...] Visit LEATHA CARRILLO - [facility] [address] [place] [phone] Brenda Clay MD [address] [facility] [address] [place] [address] 04/15/2026 10:00 AM EDT Office Visit [facility] [address] [place] [address] Sena Dominguez PA [address] [place] [address] documented as of this encounter Visit Diagnoses Not on filedocumented in this encounter Care Teams Fisher Relationship Specialty Start Date End Date Meme Steel MD [address] [place] [address] 105 [place] [address] PCP - General Pediatrics 06/05/18 04/25/22 No Pcp, Pcp PCP - General 06/08/22 07/19/22 Guadalupe Mcbride MD PCP - General Family Medicine 07/20/22 11/01/23 Sena Dominguez PA [address] [place] [address] [place] [address] PCP - BRADY Physician Auto Hauler 11/02/23 Levy Barry MD [address] [place] [address] [place] [address] PCP - General Family Medicine 12/20/23 documented as of this encounter
--- OUTSIDE RECORDS SUMMARY | 2025-07-26 15:27 | XMS_ITS | Encounter Summary ---
Author Organization [facility] work ([facility]) Address [address] [place] [address] Care Team Providers Care Freight Car Repairer Name Role Phone Meme Steel MD Primary Care Provider [phone] Pcp, Pcp Primary Care Provider Unavailabl Guadalupe Bardales MD Primary Care Provider [phone] Sena Dominguez Unavailable [phone] Levy Barry MD Primary Care Provider Unavailab le Source Comments The information that you have received may contain highly confidential and/or federally protected health information. This information has been disclosed to you from records protected by [facility]. The law prohibits you [...] in error, please contact the sender immediately.[facility] ([facility]) Encounter Details Date Type Department Care Team (Late st Contact Info) Description 03/24/2008 Historical Note [facility] Integrated International Payroll System Devyn Vásquez MD [address] [place] [address] [phone] Social History Tobacco Use Types Packs/Day Years [...] LEATHA CARRILLO - [facility] [address] [place] [phone] Brenda Clay MD [address] [facility] [address] [place] [address] 04/15/2026 10:00 AM EDT Office Visit [facility] + [facility] [address] [place] [address] Sena Dominguez PA [address] [place] [address] documented as of this encounter Visit Diagnoses Not on filedocumented in this encounter Care Teams Freight Car Repairer Relationship Specialty Start Date End Date Meme Steel MD [address] [place] [address] 105 [place] [address] PCP - General Pediatrics 06/05/18 04/25/22 No Pcp, Pcp PCP - General 06/08/22 07/19/22 Guadalupe Mcbride MD PCP - General Family Medicine 07/20/22 11/01/23 Sena Dominguez PA [address] [place] [address] [place] [address] PCP - BRADY Physician X Ray Developer 11/02/23 Levy Barry MD [address] [place] [address] [place] [address] PCP - General Family Medicine 12/20/23 documented as of this encounter
--- OUTSIDE RECORDS SUMMARY | 2025-07-26 15:27 | XMS_ITS | Encounter Summary ---
Author Organization [facility] work ([facility]) Address [address] [place] [address] Care Team Providers Care Haulage Engine Operator Name Role Phone Meme Steel MD Primary Care Provider No Pcp, Pcp Primary Care Provider Unavailabl Guadalupe Bardales MD Primary Care Provider [phone] Sena Dominguez Unavailable [phone] Levy Barry MD Primary Care Provider Unavailab le Source Comments The information that you have received may contain highly confidential and/or federally protected health information. This information has been disclosed to you from records protected by [facility]. The law prohibits you from making [...] please contact the sender immediately.[facility] ([facility]) Encounter Details Date Type Department Care Team (Late st Contact Info) Description 11/21/2013 Historical Note [facility] VIPerks System Devyn Vásquez MD [address] [place] [address] [phone] Social History Tobacco Use Types Packs/Day Years [...] LEATHA CARRILLO - [facility] [address] [place] [phone] Brenda Clay MD [address] [facility] [address] [place] [address] 04/15/2026 10:00 AM EDT Office Visit [facility]HA [facility] at [facility] + [facility] [address] [place] [address] Sena Dominguez PA [address] [place] [address] documented as of this encounter Visit Diagnoses Not on filedocumented in this encounter Care Teams Haulage Engine Operator Relationship Specialty Start Date End Date Meme Steel MD [address] [place] [address] 105 [place] [address] PCP - General Pediatrics 06/05/18 04/25/22 No Pcp, Pcp PCP - General 06/08/22 07/19/22 Guadalupe Mcbride MD PCP - General Family Medicine 07/20/22 11/01/23 Sena Dominguez PA [address] [place] [address] [place] [address] PCP - BRADY Physician Direct Marketing Coordinator 11/02/23 Levy Barry MD [address] [place] [address] [place] [address] PCP - General Family Medicine 12/20/23 documented as of this encounter
--- OUTSIDE RECORDS SUMMARY | 2025-07-26 15:27 | XMS_ITS | Encounter Summary ---
Author Organization [facility] work ([facility]) Address [address] [place] [address] Care Team Providers Care Plant Associate Name Role Phone Meme Steel MD Primary Care Provider [phone] Pcp, Pcp Primary Care Provider Unavailabl Guadalupe Bardales MD Primary Care Provider [phone] Sena Dominguez Unavailable [phone] Levy Barry MD Primary Care Provider Unavailab le Source Comments The information that you have received may contain highly confidential and/or federally protected health information. This information has been disclosed to you from records protected by [facility]. The law prohibits [...] please contact the sender immediately.[facility] ([facility]) Encounter Details Date Type Department Care Team (Late st Contact Info) Description 11/07/2014 Historical Note [facility] Novate Medical System Devyn Vásquez MD [address] [place] [address] [phone] Social History Tobacco Use Types Packs/Day Years [...] CARRILLO - [facility] [address] [place] [phone] Brenda Clay MD [address] [facility] [address] [place] [address] 04/15/2026 10:00 AM EDT Office Visit LE[facility]HA [facility] at [facility] [address] [place] [address] Sena Dominguez PA [address] [place] [address] documented as of this encounter Visit Diagnoses Not on filedocumented in this encounter Care Teams Plant Associate Relationship Specialty Start Date End Date Meme Steel MD [address] [place] [address] 105 [place] [address] PCP - General Pediatrics 06/05/18 04/25/22 No Pcp, Pcp PCP - General 06/08/22 07/19/22 Guadalupe Mcbride MD PCP - General Family Medicine 07/20/22 11/01/23 Sena Dominguez PA [address] [place] [address] [place] [address] PCP - BRADY Physician Redevelopment Specialist 11/02/23 Levy Barry MD [address] [place] [address] [place] [address] PCP - General Family Medicine 12/20/23 documented as of this encounter
--- OUTSIDE RECORDS SUMMARY | 2025-07-26 15:27 | XMS_ITS | Encounter Summary ---
Author Organization [facility] work ([facility]) Address [address] [place] [address] Care Team Providers Care Business Information Consultant Name Role Phone Meme Steel MD Primary Care Provider [phone] Pcp, Pcp Primary Care Provider Unavailabl Guadalupe Bardales MD Primary Care Provider Sena Dominguez Unavailable [phone] Levy Barry MD Primary Care Provider Unavailab le Source Comments The information that you have received may contain highly confidential and/or federally protected health information. This information has been disclosed to you from records protected by [facility]. The law prohibits you from making [...] [facility] [address] [facility] ([facility]) Encounter Details Date Type Department Care Team (Late st Contact Info) Description 05/14/2013 Historical Note [facility] Calxeda System Devyn Vásquez MD [address] [place] [address] [phone] Social History Tobacco Use Types Packs/Day Years [...] CARRILLO - [facility] [address] [place] [phone] Brenda Clay MD [address] [facility] [address] [place] [address] 04/15/2026 10:00 AM EDT Office Visit [facility]HA [facility] at [facility] [address] [place] [address] Sena Dominguez PA [address] [facility] [address] [facility] [place] [address] documented as of this encounter Visit Diagnoses Not on filedocumented in this encounter Care Teams Business Information Consultant Relationship Specialty Start Date End Date Meme Steel MD [address] [place] [address] 105 [place] [address] PCP - General Pediatrics 06/05/18 04/25/22 No Pcp, Pcp PCP - General 06/08/22 07/19/22 Guadalupe Mcbride MD PCP - General Family Medicine 07/20/22 11/01/23 Sena Dominguez PA [address] [place] [address] [place] [address] PCP - BRADY Physician Fisher Lampara Net 11/02/23 Levy Barry MD [address] [place] [address] [place] [address] PCP - General Family Medicine 12/20/23 documented as of this encounter
--- OUTSIDE RECORDS SUMMARY | 2025-07-26 15:27 | XMS_ITS | Encounter Summary ---
Author Organization [facility] work ([facility]) Address [address] [place] [address] Care Team Providers Care Medicaid Service Coordinator Name Role Phone Meme Steel MD Primary Care Provider [phone] No Pcp, Pcp Primary Care Provider Unavailabl Guadalupe Bardales MD Primary Care Provider [phone] Sena Dominguez Unavailable [phone] Levy Barry MD Primary Care Provider Unavailab le Source Comments The information that you have received may contain highly confidential and/or federally protected health information. This information has been disclosed to you from records protected by [facility]. The law prohibits you [...] the sender immediately.[facility] ([facility]) Encounter Details Date Type Department Care Team (Late st Contact Info) Description 01/02/2014 Historical Note [facility] Euclid Media System Devyn Vásquez MD [address] [place] [address] [phone] Social History Tobacco Use Types Packs/Day Years [...] EST Office Visit LEATHA CARRILLO - [facility] [address] [facility] [address] [place] [phone] Brenda Clay MD [address] [facility] [address] [place] [address] 04/15/2026 10:00 AM EDT Office Visit LE[facility]HA [facility] at [facility] + [facility] [address] [facility] [address] [place] [address] Sena Dominguez PA [address] [facility] [place] [address] documented as of this encounter Visit Diagnoses Not on filedocumented in this encounter Care Teams Medicaid Service Coordinator Relationship Specialty Start Date End Date Meme Steel MD [address] [place] [address] 105 [place] [address] PCP - General Pediatrics 06/05/18 04/25/22 No Pcp, Pcp PCP - General 06/08/22 07/19/22 Guadalupe Mcbride MD PCP - General Family Medicine 07/20/22 11/01/23 Sena Dominguez PA [address] [place] [address] [place] [address] PCP - BRADY Physician Inspector Rubber Stamp Die 11/02/23 Levy Barry MD [address] [place] [address] [place] [address] PCP - General Family Medicine 12/20/23 documented as of this encounter
--- OUTSIDE RECORDS SUMMARY | 2025-07-26 15:27 | XMS_ITS | Encounter Summary ---
Author Organization [facility] work ([facility]) Address [address] [place] [address] Care Team Providers Care Compositor Apprentice Name Role Phone Meme Steel MD Primary Care Provider [phone] No Pcp, Pcp Primary Care Provider Unavailabl Guadalupe Bardales MD Primary Care Provider [phone] Sena Dominguez Unavailable [phone] Levy Barry MD Primary Care Provider Unavailab le Source Comments The information that you have received may contain highly confidential and/or federally protected health information. This information has been disclosed to you from records protected by [facility]. The law prohibits you from [...] information in error, please contact the sender immediately.[facility] ([facility]) Encounter Details Date Type Department Care Team (Late st Contact Info) Description 08/13/2013 Historical Note [facility] Measureful System Devyn Vásquez MD [address] [place] [address] [phone] Social History Tobacco Use Types Packs/Day Years [...] LEATHA CARRILLO - [facility] [address] [facility] [address] [place] [phone] Brenda Clay MD [address] [facility] [address] [place] [address] 04/15/2026 10:00 AM EDT Office Visit LE[facility]HA [facility] at [facility] + [facility] [address] [place] [address] Sena Dominguez PA [address] [facility] [place] [address] documented as of this encounter Visit Diagnoses Not on filedocumented in this encounter Care Teams Compositor Apprentice Relationship Specialty Start Date End Date Meme Steel MD [address] [place] [address] 105 [place] [address] PCP - General Pediatrics 06/05/18 04/25/22 No Pcp, Pcp PCP - General 06/08/22 07/19/22 Guadalupe Mcbride MD PCP - General Family Medicine 07/20/22 11/01/23 Sena Dominguez PA [address] [place] [address] [place] [address] PCP - BRADY Physician Monogram Technician 11/02/23 Levy Barry MD [address] [place] [address] [place] [address] PCP - General Family Medicine 12/20/23 documented as of this encounter
--- OUTSIDE RECORDS SUMMARY | 2025-07-26 15:27 | XMS_ITS | Encounter Summary ---
Author Organization [facility] work ([facility]) Address [address] [place] [address] Care Team Providers Care Bonding Machine Tender Name Role Phone Meme Steel MD Primary Care Provider [phone] No Pcp, Pcp Primary Care Provider Unavailabl Guadalupe Bardales MD Primary Care Provider [phone] Sena Dominguez Unavailable [phone] Levy Barry MD Primary Care Provider Unavailab le Source Comments The information that you have received may contain highly confidential and/or federally protected health information. This information has been disclosed to you from records protected by [facility]. The law prohibits you from making [...] information in error, please contact the sender immediately.[facility] ([facility]) Encounter Details Date Type Department Care Team (Late st Contact Info) Description 05/14/2013 Historical Note [facility] Sylvan Source System Devyn Vásquez MD [address] [place] [address] [phone] Social History Tobacco Use Types Packs/Day Years [...] LEATHA CARRILLO - [facility] [address] [facility] [address] [place] [phone] Brenda Clay MD [address] [facility] [address] [place] [address] 04/15/2026 10:00 AM EDT Office Visit LEATHA [facility] at [facility] + [facility] [address] [address] [place] [address] Sena Dominguez PA [address] [facility] [place] [address] documented as of this encounter Visit Diagnoses Not on filedocumented in this encounter Care Teams Bonding Machine Tender Relationship Specialty Start Date End Date Meme Steel MD [address] [place] [address] 105 [place] [address] PCP - General Pediatrics 06/05/18 04/25/22 No Pcp, Pcp PCP - General 06/08/22 07/19/22 Guadalupe Mcbride MD PCP - General Family Medicine 07/20/22 11/01/23 Sena Dmoinguez PA [address] [place] [address] [place] [address] PCP - BRADY Physician Marketing Sales Supervisor 11/02/23 Levy Barry MD [address] [place] [address] [place] [address] PCP - General Family Medicine 12/20/23 documented as of this encounter
--- OUTSIDE RECORDS SUMMARY | 2025-07-26 15:27 | XMS_ITS | Encounter Summary ---
Author Organization [facility] work ([facility]) Address [address] [place] [address] Care Team Providers Care Ore Charger Name Role Phone Meme Steel MD Primary Care Provider [phone] No Pcp, Pcp Primary Care Provider Unavailabl Guadalupe Bardales MD Primary Care Provider [phone] Sena Dominguez Unavailable Levy Barry MD Primary Care Provider Unavailab le Source Comments The information that you have received may contain highly confidential and/or federally protected health information. This information has been disclosed to you from records protected by [facility]. The law prohibits you [...] contact the sender immediately.[facility] ([facility]) Encounter Details Date Type Department Care Team (Late st Contact Info) Description 01/24/2013 Historical Note [facility] Krugle System Devyn Vásquez MD [address] [place] [address] [phone] Social History Tobacco Use Types Packs/Day Years [...] CARRILLO - [facility] [address] [facility] [address] [place] [phone] Brenda Clay MD [address] [facility] [address] [place] [phone] 04/15/2026 10:00 AM EDT Office Visit LEATHA [facility] at [facility] + [facility] [address] [facility] [address] [place] [address] Sena Dominguez PA [address] [facility] [place] [address] documented as of this encounter Visit Diagnoses Not on filedocumented in this encounter Care Teams Ore Charger Relationship Specialty Start Date End Date Meme Steel MD [address] [place] [address] 105 [place] [address] PCP - General Pediatrics 06/05/18 04/25/22 No Pcp, Pcp PCP - General 06/08/22 07/19/22 Guadalupe Mcbride MD PCP - General Family Medicine 07/20/22 11/01/23 Sena Dominguez PA [address] [place] [address] [place] [address] PCP - BRADY Physician Locomotive Inspector 11/02/23 Levy Barry MD [address] [place] [address] [place] [address] PCP - General Family Medicine 12/20/23 documented as of this encounter
--- OUTSIDE RECORDS SUMMARY | 2025-07-26 15:27 | XMS_ITS | Encounter Summary ---
Author Organization [facility] [address] [facility] work ([facility]) Address [address] [place] [address] Care Team Providers Care Thread Grinder Tool Name Role Phone Meme Steel MD Primary Care Provider [phone] Pcp, Pcp Primary Care Provider Unavailabl Guadalupe Bardales MD Primary Care Provider [phone] Sena Dominguez Unavailable [phone] Levy Barry MD Primary Care Provider Unavailab le Source Comments The information that you have received may contain highly confidential and/or federally protected health information. This information has been disclosed to you from records protected by [facility]. The law prohibits you [...] contact the sender immediately.[facility] ([facility]) Encounter Details Date Type Department Care Team (Late st Contact Info) Description 11/21/2013 Historical Note [facility] Enikos System Devyn Vásquez MD [address] [place] [address] [phone] Social History Tobacco Use Types Packs/Day Years [...] CARRILLO - [facility] at [facility] [address] [facility] [address] [place] [phone] Brenda Clay MD [address] [facility] [address] [place] [address] 04/15/2026 10:00 AM EDT Office Visit LE[facility]HA [facility] at [facility] + [facility] [address] [facility] [address] [place] [address] Sena Dominguez PA [address] [facility] [place] [address] documented as of this encounter Visit Diagnoses Not on filedocumented in this encounter Care Teams Thread Grinder Tool Relationship Specialty Start Date End Date Meme Steel MD [address] [place] [address] 105 [place] [address] PCP - General Pediatrics 06/05/18 04/25/22 No Pcp, Pcp PCP - General 06/08/22 07/19/22 Guadalupe Mcbride MD PCP - General Family Medicine 07/20/22 11/01/23 Sena Dominguez PA [address] [place] [address] [place] [address] PCP - BRADY Physician Industrial Machine System Technician 11/02/23 Levy Barry MD [address] [place] [address] [place] [address] PCP - General Family Medicine 12/20/23 documented as of this encounter
--- OUTSIDE RECORDS SUMMARY | 2025-07-26 15:27 | XMS_ITS | Encounter Summary ---
Author Organization [facility] work ([facility]) Address [address] [place] [address] Care Team Providers Care Hydrogen Operator Name Role Phone Meme Steel MD Primary Care Provider [phone] Pcp, Pcp Primary Care Provider Unavailabl Guadalupe Bardales MD Primary Care Provider [phone] Sena Dominguez Unavailable [phone] Levy Barry MD Primary Care Provider Unavailab le Source Comments The information that you have received may contain highly confidential and/or federally protected health information. This information has been disclosed to you from records protected by [facility]. The law prohibits you [...] in error, please contact the sender immediately.[facility] ([facility]) Encounter Details Date Type Department Care Team (Late st Contact Info) Description 10/07/2014 Historical Note [facility] [employer] System Devyn Vásquez MD [address] [place] [address] [phone] Social History Tobacco Use Types Packs/Day Years [...] LEATHA CARRILLO - [facility] [address] [place] [phone] Brenda Clay MD [address] [place] [address] 04/15/2026 10:00 AM EDT Office Visit [facility]HA [facility] at [facility] + [facility] [address] [place] [address] Sena Dominguez [place] [address] [facility] [place] [address] documented as of this encounter Visit Diagnoses Not on filedocumented in this encounter Care Teams Hydrogen Operator Relationship Specialty Start Date End Date Meme Steel MD [address] [place] [address] [place] [address] PCP - General Pediatrics 06/05/18 04/25/22 No Pcp, Pcp PCP - General 06/08/22 07/19/22 Guadalupe Mcbride MD PCP - General Family Medicine 07/20/22 11/01/23 Sena Dominguez PA [address] [place] [address] [place] [address] PCP - BRADY Physician Hair Machine Operator 11/02/23 Levy Barry MD [address] [place] [address] [place] [address] PCP - General Family Medicine 12/20/23 documented as of this encounter
--- OUTSIDE RECORDS SUMMARY | 2025-07-26 15:27 | XMS_ITS | Encounter Summary ---
Author Organization [facility] work ([facility]) Address [address] [place] [address] Care Team Providers Care Traveling Sales Representative Name Role Phone Meme Steel MD Primary Care Provider [phone] Pcp, Pcp Primary Care Provider Unavailabl Guadalupe Bardales MD Primary Care Provider [phone] Sena Dominguez Unavailable [phone] Levy Barry MD Primary Care Provider Unavailab le Source Comments The information that you have received may contain highly confidential and/or federally protected health information. This information has been disclosed to you from records protected by [facility]. The law prohibits you from [...] please contact the sender immediately.[facility] ([facility]) Encounter Details Date Type Department Care Team (Late st Contact Info) Description 11/21/2013 Historical Note [facility] [employer] System Devyn Vásquez MD [address] [place] [address] [phone] Social History Tobacco Use Types Packs/Day Years [...] AM EST Office Visit LEATHA CARRILLO - [facility] [address] [place] [phone] Brenda Clay MD [address] [facility] [address] [place] [phone] 04/15/2026 10:00 AM EDT Office Visit LEATHA [facility] at [facility] + [facility] [address] [place] [address] Sena Dominguez PA [address] [facility] [place] [address] documented as of this encounter Visit Diagnoses Not on filedocumented in this encounter Care Teams Traveling Sales Representative Relationship Specialty Start Date End Date Meme Steel MD [address] [place] [address] 105 [place] [address] PCP - General Pediatrics 06/05/18 04/25/22 No Pcp, Pcp PCP - General 06/08/22 07/19/22 Guadalupe Mcbride MD PCP - General Family Medicine 07/20/22 11/01/23 Sena Dominguez PA [address] [place] [address] [place] [address] PCP - BRADY Physician Insurance Account Executive 11/02/23 Levy Barry MD [address] [place] [address] [place] [address] PCP - General Family Medicine 12/20/23 documented as of this encounter
--- OUTSIDE RECORDS SUMMARY | 2025-07-26 15:27 | XMS_ITS | Encounter Summary ---
Author Organization [facility] work ([facility]) Address [address] [place] [address] Care Team Providers Care Parcel Post Clerk Name Role Phone Meme Steel MD Primary Care Provider [phone] No Pcp, Pcp Primary Care Provider Unavailabl Guadalupe Bardales MD Primary Care Provider [phone] Sena Dominguez Unavailable [phone] Levy Barry MD Primary Care Provider Unavailab le Source Comments The information that you have received may contain highly confidential and/or federally protected health information. This information has been disclosed to you from records protected by [employer] [facility]. The law prohibits you [...] the sender immediately.[facility] ([facility]) Encounter Details Date Type Department Care Team (Late st Contact Info) Description 11/21/2013 Historical Note [facility] [employer] System Devyn Vásquez MD [address] [place] [address] [phone] Social History Tobacco Use Types Packs/Day Years [...] CARRILLO - [facility] at [facility] [address] [facility] [address] [place] [phone] Brenda Clay MD [address] [facility] [address] [place] [phone] 04/15/2026 10:00 AM EDT Office Visit LEATHA Primary [facility] at [facility] + [facility] [address] [facility] [facility] [address] [place] [address] Sena Dominguez PA [address] [facility] [place] [address] documented as of this encounter Visit Diagnoses Not on filedocumented in this encounter Care Teams Parcel Post Clerk Relationship Specialty Start Date End Date Meme Steel MD [address] [place] [address] 105 [place] [address] PCP - General Pediatrics 06/05/18 04/25/22 No Pcp, Pcp PCP - General 06/08/22 07/19/22 Guadalupe Mcbride MD PCP - General Family Medicine 07/20/22 11/01/23 Sena Dominguez PA [address] [place] [address] [place] [address] PCP - BRADY Physician Rn Practitioner 11/02/23 Levy Barry MD [address] [place] [address] [place] [address] PCP - General Family Medicine 12/20/23 documented as of this encounter
--- OUTSIDE RECORDS SUMMARY | 2025-07-26 15:27 | XMS_ITS | Encounter Summary ---
Author Organization [facility] work ([facility]) Address [address] [place] [address] Care Team Providers Care Counter Server Name Role Phone Meme Steel MD Primary Care Provider [phone] Pcp, Pcp Primary Care Provider Unavailabl Guadalupe Bardales MD Primary Care Provider [phone] Sena Dominguez Unavailable [phone] Levy Barry MD Primary Care Provider Unavailab le Source Comments The information that you have received may contain highly confidential and/or federally protected health information. This information has been disclosed to you from records protected by [facility]. The law prohibits you from making [...] contact the sender immediately.[facility] ([facility]) Encounter Details Date Type Department Care Team (Late st Contact Info) Description 08/14/2013 Historical Note [facility] [employer] [facility] Devyn Vásquez MD [address] [place] [address] [phone] Social History Tobacco Use Types Packs/Day Years [...] CARRILLO - [facility] at [facility] [address] [place] [phone] Brenda Clay MD [address] [facility] [address] [place] [phone] 04/15/2026 10:00 AM EDT Office Visit [facility]HA [facility] [address] [place] [address] Sena Dominguez PA [address] [facility] [place] [address] documented as of this encounter Visit Diagnoses Not on filedocumented in this encounter Care Teams Counter Server Relationship Specialty Start Date End Date Meme Steel MD [address] [place] [address] 105 [place] [address] PCP - General Pediatrics 06/05/18 04/25/22 No Pcp, Pcp PCP - General 06/08/22 07/19/22 Guadalupe Mcbride MD PCP - General Family Medicine 07/20/22 11/01/23 Sena Dominguez PA [address] [place] [address] [place] [address] PCP - BRADY Physician Instructor Looping 11/02/23 Levy Barry MD [address] [place] [address] [place] [address] PCP - General Family Medicine 12/20/23 documented as of this encounter
--- OUTSIDE RECORDS SUMMARY | 2025-07-26 15:27 | XMS_ITS | Encounter Summary ---
Author Organization [facility] work ([facility]) Address [address] [place] [address] Care Team Providers Care Marketing Director Assisted Living Name Role Phone Meme Steel MD Primary Care Provider [phone] No Pcp, Pcp Primary Care Provider Unavailabl Guadalupe Bardales MD Primary Care Provider [phone] Sena Dominguez Unavailable [phone] Levy Barry MD Primary Care Provider Unavailab le Source Comments The information that you have received may contain highly confidential and/or federally protected health information. This information has been disclosed to you from records protected by [facility]. The law prohibits you from making [...] please contact the sender immediately.[facility] ([facility]) Encounter Details Date Type Department Care Team (Late st Contact Info) Description 03/24/2008 Historical Note [facility] [employer] System Devyn Vásquez MD [address] [place] [address] [phone] Social History Tobacco Use Types Packs/Day Years [...] CARRILLO - [facility] [address] [place] [phone] Brenda Clay MD [address] [facility] [address] [place] [phone] 04/15/2026 10:00 AM EDT Office Visit LEATHA Primary [facility] at [facility] + [facility] [address] [facility] [facility] [address] [place] [address] Sena Dominguez PA [address] [facility] [place] [address] documented as of this encounter Visit Diagnoses Not on filedocumented in this encounter Care Teams Marketing Director Assisted Living Relationship Specialty Start Date End Date Meme Steel MD [address] [place] [address] 105 [place] [address] PCP - General Pediatrics 06/05/18 04/25/22 No Pcp, Pcp PCP - General 06/08/22 07/19/22 Guadalupe Mcbride MD PCP - General Family Medicine 07/20/22 11/01/23 Sena Dominguez PA [address] [place] [address] [place] [address] PCP - BRADY Physician Chain Maker 11/02/23 Levy Barry MD [address] [place] [address] [place] [address] PCP - General Family Medicine 12/20/23 documented as of this encounter
--- OUTSIDE RECORDS SUMMARY | 2025-07-26 15:27 | XMS_ITS | Encounter Summary ---
Author Organization [facility] work ([facility]) Address [address] [place] [address] Care Team Providers Care Wall Scraper Name Role Phone Meme Steel MD Primary Care Provider No Pcp, Pcp Primary Care Provider Unavailabl Guadalupe Bardales MD Primary Care Provider [phone] Sena Dominguez Unavailable [phone] Levy Barry MD Primary Care Provider Unavailab le Source Comments The information that you have received may contain highly confidential and/or federally protected health information. This information has been disclosed to you from records protected by [facility]. The law prohibits you from making [...] information in error, please contact the sender immediately.[facility] ([facility]) Encounter Details Date Type Department Care Team (Late st Contact Info) Description 01/14/2013 Historical Note [facility] [employer] System Devyn Vásquez MD [address] [place] [address] [phone] Social History Tobacco Use Types Packs/Day Years [...] LEATHA CARRILLO - [facility] [address] [facility] [address] [place] [phone] Brenda Clay MD [address] [facility] [address] [place] [phone] 04/15/2026 10:00 AM EDT Office Visit LEATHA [facility] at [facility] + [facility] [address] [place] [phone] Sena Dominguez PA [address] [facility] [place] [address] documented as of this encounter Visit Diagnoses Not on filedocumented in this encounter Care Teams Wall Scraper Relationship Specialty Start Date End Date Meme Steel MD [address] [place] [address] 105 [place] [address] PCP - General Pediatrics 06/05/18 04/25/22 No Pcp, Pcp PCP - General 06/08/22 07/19/22 Guadalupe Mcbride MD PCP - General Family Medicine 07/20/22 11/01/23 Sena Dominguez PA [address] [place] [address] [place] [address] PCP - BRADY Physician Pluck Trimmer 11/02/23 Levy Barry MD [address] [place] [address] [place] [address] PCP - General Family Medicine 12/20/23 documented as of this encounter
--- OUTSIDE RECORDS SUMMARY | 2025-07-26 15:27 | XMS_ITS | Encounter Summary ---
Author Organization [facility] work ([facility]) Address [address] [place] [address] Care Team Providers Care Newspaper Library Manager Name Role Phone Meme Steel MD Primary Care Provider [phone] No Pcp, Pcp Primary Care Provider Unavailabl Guadalupe Bardales MD Primary Care Provider Sena Dominguez Unavailable [phone] Levy Barry MD Primary Care Provider Unavailab le Source Comments The information that you have received may contain highly confidential and/or federally protected health information. This information has been disclosed to you from records protected by [facility]. The law prohibits you [...] contact the sender immediately.[facility] ([facility]) Encounter Details Date Type Department Care Team (Late st Contact Info) Description 11/21/2013 Historical Note [facility] [employer] System Devyn Vásquez MD [address] [place] [address] [phone] Social History Tobacco Use Types Packs/Day Years [...] CARRILLO - [facility] at [facility] [address] [facility] [address] [place] [phone] Brenda Clay MD [address] [facility] [address] [place] [phone] 04/15/2026 10:00 AM EDT Office Visit LEATHA [facility] at [facility] + [facility] [address] [facility] [address] [place] [address] Sena Dominguez PA [address] [facility] [place] [address] documented as of this encounter Visit Diagnoses Not on filedocumented in this encounter Care Teams Newspaper Library Manager Relationship Specialty Start Date End Date Meme Steel MD [address] [place] [address] [place] [address] PCP - General Pediatrics 06/05/18 04/25/22 No Pcp, Pcp PCP - General 06/08/22 07/19/22 Guadalupe Mcbride MD PCP - General Family Medicine 07/20/22 11/01/23 Sena Dominguez PA [address] [place] [address] [place] [address] PCP - BRADY Physician Draw String Knotter 11/02/23 Levy Barry MD [address] [place] [address] [place] [address] PCP - General Family Medicine 12/20/23 documented as of this encounter
--- OUTSIDE RECORDS SUMMARY | 2025-07-26 15:27 | XMS_ITS | Encounter Summary ---
Author Organization [facility] work ([facility]) Address [address] [place] [address] Care Team Providers Care Ward Supervisor Name Role Phone Meme Steel MD Primary Care Provider [phone] No Pcp, Pcp Primary Care Provider Unavailabl Guadalupe Bardales MD Primary Care Provider [phone] Sena Dominguez Unavailable Levy Barry MD Primary Care Provider Unavailab le Source Comments The information that you have received may contain highly confidential and/or federally protected health information. This information has been disclosed to you from records protected by [facility] [facility]. The law prohibits you [...] please contact the sender immediately.[facility] ([facility]) Encounter Details Date Type Department Care Team (Late st Contact Info) Description 01/02/2014 Historical Note [facility] [employer] System Devyn Vásquez MD [address] [place] [address] [phone] Social History Tobacco Use Types Packs/Day Years [...] AM EST Office Visit LEATHA CARRILLO - [facility] [address] [facility] [address] [place] [phone] Brenda Clay MD [address] [facility] [address] [place] [phone] 04/15/2026 10:00 AM EDT Office Visit LEATHA Primary [facility] at [facility] + [facility] [address] [facility] [address] [place] [address] Sena Dominguez PA [address] [facility] [place] [address] documented as of this encounter Visit Diagnoses Not on filedocumented in this encounter Care Teams Ward Supervisor Relationship Specialty Start Date End Date Meme Steel MD [address] [place] [address] [place] [address] PCP - General Pediatrics 06/05/18 04/25/22 No Pcp, Pcp PCP - General 06/08/22 07/19/22 Guadalupe Mcbride MD PCP - General Family Medicine 07/20/22 11/01/23 Sena Dominguez PA [address] [place] [address] [place] [address] PCP - BRADY Physician Customer Liaison 11/02/23 Levy Barry MD [address] [place] [address] [place] [address] PCP - General Family Medicine 12/20/23 documented as of this encounter
== END 2025-07-26 15:51 | disposition home or self-care (01) ==
PROVIDERS: Emergency Provider Emergency Medicine
DX: S82.441A Displaced spiral fracture of shaft of right fibula, initial encounter for closed fracture (principal); X50.1XXA Overexertion from prolonged static or awkward postures, initial encounter; Y93.9 Activity, unspecified; Y92.9 Unspecified place or not applicable; Y99.9 Unspecified external cause status; M25.571 Pain in right ankle and joints of right foot
CPT/HCPCS: 73610; 73630; 99281; 99283

== ENCOUNTER → 2025-07-26 13:52 | Outpatient (BNV) | payer OTHER, SELFPAY | PROVIDERS: Visit Provider Radiology Diagnostic Radiology | DX: S82.441A Displaced spiral fracture of shaft of right fibula, initial encounter for closed fracture (principal); M25.571 Pain in right ankle and joints of right foot | CPT/HCPCS: 73610; 73630 ==

== ENCOUNTER 2025-07-28 10:56 | Outpatient (AMB) | payer OTHER, SELFPAY ==
--- NOTE | 2025-07-28 11:08 | A.OFFVIS_ITS ---
Vital Signs 07/28/25 11:21 Height 5 ft 6 in Weight 280 lb BMI 45.2 Intake Visit Reasons: ED- RT Closed fibular Fx, DOI 07/25/25 Intake Note: Kimber is a 20 year old female who presents today as a new patient for an ER follow up of right fibular fracture, DOI 07/25/25. Patient presented to [facility] ER for ongoing ankle pain, reporting that she twisted her ankle the night before her visit. X-rays were obtained revealing fracture, patient was placed in a splint and instructed to remain non weight bearing on right lower extremity. Patient reports that she continues to have pain located at the lateral aspect of ankle. She has numbness and tingling that comes when her foot is not elevate. Allergies No Known Allergies Allergy (Verified 07/28/25 11:16) HPI HPI ED- RT Closed fibular Fx, DOI 07/25/25: Details: Ms. Nath is a 20-year-old female with a past medical history significant for anxiety, essential tremor and Mark's thyroid disease who presents to the office today for evaluation of a right ankle injury that she sustained on . She states that she rolled her right ankle. She felt immediate pain but continued to bear weight onto the right lower extremity. The following day she presented to the emergency department where x-rays were obtained and she was found to have a right distal fibular fracture. She was placed into a posterior splint and instructed to non weightbear on the right lower extremity. She follows up with orthopedics today for further evaluation and treatment. 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 Resolving ecchymosis along the anterior medial distal tibia. Able to dorsiflex and plantar flex slightly but is significantly limited due to pain. Able to move all digits. Sensation reportedly intact. Pedal pulse intact. Psych Appearance: grossly normal Mental Status: mental status grossly normal Attitude: cooperative Office Procedures Casting/Splints [id number] Leg splint application Procedure code (CPT) selection complete Assessment & Plan Assessment & Plan (1) Closed fracture of right distal fibula: Code(s): S82.831A - Other fracture of upper and lower end of right fibula, initial encounter for closed fracture Category: Medical Plan Ms. Nath is a 20-year-old female with a past medical history significant for anxiety, essential tremor and Mark's thyroid disease who presents to the office today for evaluation of a right ankle injury that she sustained on 07-25-25. She states that she rolled her right ankle. She felt immediate pain but continued to bear weight onto the right lower extremity. The following day she presented to the emergency department where x-rays were obtained and she was found to have a right distal fibular fracture. She was placed into a posterior splint and instructed to non weightbear on the right lower extremity. She follows up with orthopedics today for further evaluation and treatment. While in the office today, the patients splint was removed to perform a skin check. Her skin remains intact at this time with no evidence of open fracture or signs of infection. A new custom molded posterior short-leg splint was placed while in the office today. I discussed the case with Dr. Fernández, who was also available to meet the patient and explained the extent of the injury to the patient and options available which include surgical intervention. I explained the procedure in detail along with the length of recovery and rehab course. I explained the risk, benefits and alternatives. Risks including, but not limited to infection, blood clots, bleeding, delayed healing, non union malunion, post-traumatic arhtritis and nerve/tissue damage to surrounding areas, numbness, scar sensitivity, irritation from plates/screws, hardware loosening or breakage, and need for later removal. Benefits including, restoring proper alignment, improving ankle mobility and function, reduced long-term risk of arthritis, chronic pain or deformity, earlier mobilization of compared to no-operative treatment in unstable fractures. Alternatives including, Non-surgical management; casting or splinting with strict nonweightbearing. The patient had ample opportunity to ask questions. All questions were answered to the patient's satisfaction. The patient verbalized understanding and agreed to move forward with a right ankle open reduction internal fixation performed by Dr. Fernández. The patient demonstrates understanding of the risks, benefits and alternatives and wishes to proceed. Coding Level of Care Code New Pt Level 4 (08109) Diagnoses Closed fracture of right distal fibula S82.831A CPT Codes Splint - CPT: 83824-Rbjka Leg splint application ([id number])
[2025-07-28 11:21] VITALS: BMI 45.2
--- OUTSIDE RECORDS SUMMARY | 2025-07-28 14:36 | XMS_ITS | Encounter Summary ---
Author Organization [facility] work ([facility]) Address [address] [place] [address] Care Team Providers Care Gunite Mixer Name Role Phone Meme Steel MD Primary Care Provider [phone] Pcp, Pcp Primary Care Provider Unavailabl Guadalupe Bardales MD Primary Care Provider [phone] Sena Dominguez Unavailable [phone] Levy Barry MD Primary Care Provider Unavailab le Source Comments The information that you have received may contain highly confidential and/or federally protected health information. This information has been disclosed to you from records protected by [facility]. The law prohibits you from making [...] the sender immediately.[facility] ([facility]) Encounter Details Date Type Department Care Team (Late st Contact Info) Description 2004 Historical Note [facility] [employer] Bl[employer] System Devyn Vásquez MD [address] [place] [address] [phone] Social History Tobacco Use Types Packs/Day Years [...] Visit LEATHA CARRILLO - [facility] [address] [facility] [address] [place] [phone] Brenda Clay MD [address] [facility] [address] [place] [address] 04/15/2026 10:00 AM EDT Office Visit [facility] + [facility] [address] [facility] [address] [place] [address] Sena Dominguez [place] [address] [facility] [place] [address] documented as of this encounter Visit Diagnoses Not on filedocumented in this encounter Care Teams Gunite Mixer Relationship Specialty Start Date End Date Meme Steel MD [address] [place] [address] [address] [place] [address] PCP - General Pediatrics 06/05/18 04/25/22 No Pcp, Pcp PCP - General 06/08/22 07/19/22 Guadalupe Mcbride MD PCP - General Family Medicine 07/20/22 11/01/23 Sena Dominguez PA [address] [place] [address] [place] [address] PCP - BRADY Physician Director Of Coding 11/02/23 Levy Barry MD [address] [place] [address] [place] [address] PCP - General Family Medicine 12/20/23 documented as of this encounter
--- OUTSIDE RECORDS SUMMARY | 2025-07-28 14:36 | XMS_ITS | Encounter Summary ---
Author Organization [facility] work ([facility]) Address [address] [place] [address] Care Team Providers Care Companion Name Role Phone Meme Steel MD Primary Care Provider [phone] Pcp, Pcp Primary Care Provider Unavailabl Guadalupe Bardales MD Primary Care Provider [phone] Sena Dominguez Unavailable [phone] Levy Barry MD Primary Care Provider Unavailab le Source Comments The information that you have received may contain highly confidential and/or federally protected health information. This information has been disclosed to you from records protected by [facility]. The law prohibits you [...] please contact the sender immediately.[facility] ([facility]) Encounter Details Date Type Department Care Team (Late st Contact Info) Description 2004 Historical Note [facility] [employer] System Devyn Vásquez MD [address] [place] [address] [phone] Social History Tobacco Use Types Packs/Day Years [...] CARRILLO - [facility] [address] [facility] [address] [place] [phone] Brenda Clay MD [address] [facility] [address] [place] [phone] 04/15/2026 10:00 AM EDT Office Visit [facility] at [facility] + [facility] [address] [facility] [address] [place] [address] Sena Dominguez PA [address] [facility] [place] [address] documented as of this encounter Visit Diagnoses Not on filedocumented in this encounter Care Teams Companion Relationship Specialty Start Date End Date Meme Steel MD [address] [place] [address] [address] [place] [address] PCP - General Pediatrics 06/05/18 04/25/22 No Pcp, Pcp PCP - General 06/08/22 07/19/22 Guadalupe Mcbride MD PCP - General Family Medicine 07/20/22 11/01/23 Sena Dominguez PA [address] [place] [address] [place] [address] PCP - BRADY Physician Security System Sales Consultant 11/02/23 Levy Barry MD [address] [place] [address] [place] [address] PCP - General Family Medicine 12/20/23 documented as of this encounter
--- OUTSIDE RECORDS SUMMARY | 2025-07-28 14:36 | XMS_ITS | Encounter Summary ---
Author Organization [facility] work ([facility]) Address [address] [place] [address] Care Team Providers Care Lead Janitor Name Role Phone Meme Steel MD Primary Care Provider [phone] Pcp, Pcp Primary Care Provider Unavailabl Guadalupe Bardales MD Primary Care Provider [phone] Sena Dominguez Unavailable Levy Barry MD Primary Care Provider Unavailab le Source Comments The information that you have received may contain highly confidential and/or federally protected health information. This information has been disclosed to you from records protected by [facility]. The law prohibits you from [...] the sender immediately.[facility] ([facility]) Encounter Details Date Type Department Care Team (Late st Contact Info) Description 2004 Historical Note [facility] Bloxr System Devyn Vásquez MD [address] [place] [address] [phone] Social History Tobacco Use Types Packs/Day Years [...] EST Office Visit LEATHA CARRILLO - [facility] [address] [facility] [address] [place] [phone] Brenda Clay MD [address] [facility] [address] [place] [phone] 04/15/2026 10:00 AM EDT Office Visit [facility]HA [facility] at [facility] + [facility] [address] [facility] [address] [place] [address] Sena Dominguez PA [address] [facility] [place] [address] documented as of this encounter Visit Diagnoses Not on filedocumented in this encounter Care Teams Lead Janitor Relationship Specialty Start Date End Date Meme Steel MD [address] [place] [address] [place] [address] PCP - General Pediatrics 06/05/18 04/25/22 No Pcp, Pcp PCP - General 06/08/22 07/19/22 Guadalupe Mcbride MD PCP - General Family Medicine 07/20/22 11/01/23 Sena Dominguez PA [address] [place] [address] [place] [address] PCP - BRADY Physician Test Borer 11/02/23 Levy Barry MD [address] [place] [address] [place] [address] PCP - General Family Medicine 12/20/23 documented as of this encounter
--- OUTSIDE RECORDS SUMMARY | 2025-07-28 14:36 | XMS_ITS | Encounter Summary ---
Author Organization [facility] work ([facility]) Address [address] [place] [address] Care Team Providers Care Foreman Shipping Department Name Role Phone Meme Steel MD Primary Care Provider [phone] Pcp, Pcp Primary Care Provider Unavailabl Guadalupe Bardales MD Primary Care Provider [phone] Sena Dominguez Unavailable [phone] Levy Barry MD Primary Care Provider Unavailab le Source Comments The information that you have received may contain highly confidential and/or federally protected health information. This information has been disclosed to you from records protected by [facility]. The law prohibits you [...] error, please contact the sender immediately.[facility] ([facility]) Encounter Details Date Type Department Care Team (Late st Contact Info) Description 2004 Historical Note [facility] Share[employer] System Devyn Vásquez MD [address] [place] [address] [phone] Social History Tobacco Use Types Packs/Day Years [...] CARRILLO - [facility] [address] [facility] [address] [place] [phone] Brenda Clay MD [address] [facility] [address] [place] [phone] 04/15/2026 10:00 AM EDT Office Visit LEATHA [facility] at [facility] + [facility] [address] [facility] [address] [place] [address] Sena Dominguez PA [address] [facility] [place] [address] documented as of this encounter Visit Diagnoses Not on filedocumented in this encounter Care Teams Foreman Shipping Department Relationship Specialty Start Date End Date Meme Steel MD [address] [place] [address] [place] [address] PCP - General Pediatrics 06/05/18 04/25/22 No Pcp, Pcp PCP - General 06/08/22 07/19/22 Guadalupe Mcbride MD PCP - General Family Medicine 07/20/22 11/01/23 Sena Dominguez PA [address] [place] [address] [place] [address] PCP - BRADY Physician Cable Tool Operator 11/02/23 Levy Barry MD [address] [place] [address] [place] [address] PCP - General Family Medicine 12/20/23 documented as of this encounter
--- OUTSIDE RECORDS SUMMARY | 2025-07-28 14:36 | XMS_ITS | Encounter Summary ---
Author Organization [facility] work ([facility]) Address [address] [place] [address] Care Team Providers Care Automotive Specialty Technician Name Role Phone Meme Steel MD Primary Care Provider [phone] Pcp, Pcp Primary Care Provider Unavailabl Guadalupe Bardales MD Primary Care Provider [phone] Sena Dominguez Unavailable Levy Barry MD Primary Care Provider Unavailab le Source Comments The information that you have received may contain highly confidential and/or federally protected health information. This information has been disclosed to you from records protected by [facility]. The law prohibits you [...] please contact the sender immediately.[facility] ([facility]) Encounter Details Date Type Department Care Team (Late st Contact Info) Description 2004 Historical Note [facility] NOBOT System Devyn Vásquez MD [address] [place] [address] [phone] Social History Tobacco Use Types Packs/Day Years [...] CARRILLO - [facility] [address] [facility] [address] [place] [phone] Brenda Clay MD [address] [facility] [address] [place] [phone] 04/15/2026 10:00 AM EDT Office Visit [facility]HA [facility] + [facility] [address] [facility] [address] [place] [phone] Sena Dominguez PA [address] [facility] [place] [address] documented as of this encounter Visit Diagnoses Not on filedocumented in this encounter Care Teams Automotive Specialty Technician Relationship Specialty Start Date End Date Meme Steel MD [address] [place] [address] [place] [address] PCP - General Pediatrics 06/05/18 04/25/22 No Pcp, Pcp PCP - General 06/08/22 07/19/22 Guadalupe Mcbride MD PCP - General Family Medicine 07/20/22 11/01/23 Sena Dominguez PA [address] [place] [address] [place] [address] PCP - BRADY Physician Forklift Driver 11/02/23 Levy Barry MD [address] [place] [address] [place] [address] PCP - General Family Medicine 12/20/23 documented as of this encounter
--- OUTSIDE RECORDS SUMMARY | 2025-07-28 14:36 | XMS_ITS | Encounter Summary ---
Author Organization [facility] work ([facility]) Address [address] [place] [address] Care Team Providers Care Manager Heavy Equipment Name Role Phone Meme Steel MD Primary Care Provider [phone] Pcp, Pcp Primary Care Provider Unavailabl Guadalupe Bardales MD Primary Care Provider [phone] Sena Dominguez Unavailable [phone] Levy Barry MD Primary Care Provider Unavailab le Source Comments The information that you have received may contain highly confidential and/or federally protected health information. This information has been disclosed to you from records protected by [facility]. The law prohibits you from [...] please contact the sender immediately.[facility] ([facility]) Encounter Details Date Type Department Care Team (Late st Contact Info) Description 2004 Historical Note [facility] LeaderNation System Devyn Vásquez MD [address] [place] [id number] Social History Tobacco Use Types Packs/Day Years [...] - [facility] [address] [facility] [address] [place] [phone] Brenda Clay MD [address] [facility] [address] [place] [phone] 04/15/2026 10:00 AM EDT Office Visit LEATHA [facility] at [facility] + [facility] [address] [facility] [address] [place] [address] Sena Dominguez PA [address] [facility] [place] [address] documented as of this encounter Visit Diagnoses Not on filedocumented in this encounter Care Teams Manager Heavy Equipment Relationship Specialty Start Date End Date Meme Steel MD [address] [place] [address] [place] [address] PCP - General Pediatrics 06/05/18 04/25/22 No Pcp, Pcp PCP - General 06/08/22 07/19/22 Guadalupe Mcbride MD PCP - General Family Medicine 07/20/22 11/01/23 Sena Dominguez PA [address] [place] [address] [place] [address] PCP - BRADY Physician Otr Flatbed Driver 11/02/23 Levy Barry MD [address] [place] [address] [place] [address] PCP - General Family Medicine 12/20/23 documented as of this encounter
--- OUTSIDE RECORDS SUMMARY | 2025-07-28 14:36 | XMS_ITS | Encounter Summary ---
Author Organization [facility] work ([facility]) Address [address] [place] [address] Care Team Providers Care Dinkey Locomotive Operator Name Role Phone Meme Steel MD Primary Care Provider [phone] Pcp, Pcp Primary Care Provider Unavailabl Guadalupe Bardales MD Primary Care Provider [phone] Sena Dominguez Unavailable [phone] Levy Barry MD Primary Care Provider Unavailab le Source Comments The information that you have received may contain highly confidential and/or federally protected health information. This information has been disclosed to you from records protected by [facility]. The law prohibits you from making any [...] contact the sender immediately.[facility] ([facility]) Encounter Details Date Type Department Care Team (Late st Contact Info) Description 2004 Historical Note [facility] Nitro PDF System Devyn Vásquez MD [address] [place] [address] [phone] Social History Tobacco Use Types Packs/Day Years [...] CARRILLO - [facility] [address] [facility] [address] [place] [phone] Brenda Clay MD [address] [facility] [address] [place] [address] 04/15/2026 10:00 AM EDT Office Visit LEATHA [facility] at [facility] + [facility] [address] [facility] [address] [place] [phone] Sena Dominguez PA [address] [facility] [place] [address] documented as of this encounter Visit Diagnoses Not on filedocumented in this encounter Care Teams Dinkey Locomotive Operator Relationship Specialty Start Date End Date Meme Steel MD [address] [place] [address] [place] [address] PCP - General Pediatrics 06/05/18 04/25/22 No Pcp, Pcp PCP - General 06/08/22 07/19/22 Guadalupe Mcbride MD PCP - General Family Medicine 07/20/22 11/01/23 Sena Dominguez PA [address] [place] [address] [place] [address] PCP - BRADY Physician Dexigraph Operator 11/02/23 Levy Barry MD [address] [place] [address] [place] [address] PCP - General Family Medicine 12/20/23 documented as of this encounter
--- OUTSIDE RECORDS SUMMARY | 2025-07-28 14:36 | XMS_ITS | Encounter Summary ---
Author Organization [facility] work ([facility]) Address [address] [place] [address] Care Team Providers Care Wash Driller Name Role Phone Meme Steel MD Primary Care Provider [phone] Pcp, Pcp Primary Care Provider Unavailabl Guadalupe Bardales MD Primary Care Provider [phone] Sena Dominguez Unavailable [phone] Levy Barry MD Primary Care Provider Unavailab le Source Comments The information that you have received may contain highly confidential and/or federally protected health information. This information has been disclosed to you from records protected by [facility]. The law prohibits you from making [...] error, please contact the sender immediately.[facility] ([facility]) Encounter Details Date Type Department Care Team (Late st Contact Info) Description 2004 Historical Note [facility] Applied Proteomics System Devyn Vásquez MD [address] [place] [address] [phone] Social History Tobacco Use Types Packs/Day Years [...] - [facility] [address] [place] [phone] Brenda Clay MD [address] [facility] [address] [place] [address] 04/15/2026 10:00 AM EDT Office Visit [facility] at [facility] + [facility] [address] [place] [address] Sena Dominguez PA [address] [facility] [address] [facility] [place] [address] documented as of this encounter Visit Diagnoses Not on filedocumented in this encounter Care Teams Wash Driller Relationship Specialty Start Date End Date Meme Steel MD [address] [place] [address] [place] [address] PCP - General Pediatrics 06/05/18 04/25/22 No Pcp, Pcp PCP - General 06/08/22 07/19/22 Guadalupe Mcbride MD PCP - General Family Medicine 07/20/22 11/01/23 Sena Dominguez PA [address] [place] [address] [place] [address] PCP - BRADY Physician Guard Sergeant 11/02/23 Levy Barry MD [address] [place] [address] [place] [address] PCP - General Family Medicine 12/20/23 documented as of this encounter
--- OUTSIDE RECORDS SUMMARY | 2025-07-28 14:36 | XMS_ITS | Encounter Summary ---
Author Organization [facility] work ([facility]) Address [address] [place] [address] Care Team Providers Care Press Pipe Inspector Name Role Phone Meme Steel MD Primary Care Provider [phone] Pcp, Pcp Primary Care Provider Unavailabl Guadalupe Bardales MD Primary Care Provider [phone] Sena Dominguez Unavailable [phone] Levy Barry MD Primary Care Provider Unavailab le Source Comments The information that you have received may contain highly confidential and/or federally protected health information. This information has been disclosed to you from records protected by [facility]. The law prohibits you from [...] contact the sender immediately.[facility] ([facility]) Encounter Details Date Type Department Care Team (Late st Contact Info) Description 2004 Historical Note SVMG Cellcrypt System Devyn Vásquez MD [address] [place] [address] [phone] Social History Tobacco Use Types Packs/Day Years [...] - Located Within [facility] [address] [place] [phone] Brenda Clay MD [address] [facility] [address] [place] [address] 04/15/2026 10:00 AM EDT Office Visit [facility]HA [facility] at [facility] + [facility] [address] [place] [address] Sena Dominguez PA [address] [place] [address] documented as of this encounter Visit Diagnoses Not on filedocumented in this encounter Care Teams Press Pipe Inspector Relationship Specialty Start Date End Date Meme Steel MD [address] [place] [address] 105 [place] [address] PCP - General Pediatrics 06/05/18 04/25/22 No Pcp, Pcp PCP - General 06/08/22 07/19/22 Guadalupe Mcbride MD PCP - General Family Medicine 07/20/22 11/01/23 Sena Dominguez PA [address] [place] [address] [place] [address] PCP - BRADY Physician Senior Bookkeeper 11/02/23 Levy Barry MD [address] [place] [address] [place] [address] PCP - General Family Medicine 12/20/23 documented as of this encounter
--- OUTSIDE RECORDS SUMMARY | 2025-07-28 14:36 | XMS_ITS | Encounter Summary ---
Author Organization [facility] work ([facility]) Address [address] [place] [address] Care Team Providers Care Copyholder Name Role Phone Meme Steel MD Primary Care Provider [phone] Pcp, Pcp Primary Care Provider Unavailabl Guadalupe Bardales MD Primary Care Provider [phone] Sena oDminguez Unavailable [phone] Levy Barry MD Primary Care Provider Unavailab le Source Comments The information that you have received may contain highly confidential and/or federally protected health information. This information has been disclosed to you from records protected by [facility]. The law prohibits you [...] contact the sender immediately.[facility] ([facility]) Encounter Details Date Type Department Care Team (Late st Contact Info) Description 2004 Historical Note SVMG TripleGift System Devyn Vásquez MD [address] [place] [address] [phone] Social History Tobacco Use Types Packs/Day Years [...] Visit LEATHA CARRILLO - [facility] [address] [facility] [address] [place] [phone] Brenda Clay MD [address] [facility] [address] [place] [address] 04/15/2026 10:00 AM EDT Office Visit [facility] at [facility] + [facility] [address] [place] [address] Sena Dominguez PA [address] [place] [address] documented as of this encounter Visit Diagnoses Not on filedocumented in this encounter Care Teams Copyholder Relationship Specialty Start Date End Date Meme Steel MD [address] [place] [address] 105 [place] [address] PCP - General Pediatrics 06/05/18 04/25/22 No Pcp, Pcp PCP - General 06/08/22 07/19/22 Guadalupe Mcbride MD PCP - General Family Medicine 07/20/22 11/01/23 Sena Dominguez PA [address] [place] [address] [place] [address] PCP - BRADY Physician Metal Fabricating Inspector 11/02/23 Levy Barry MD [address] [place] [address] [place] [address] PCP - General Family Medicine 12/20/23 documented as of this encounter
--- OUTSIDE RECORDS SUMMARY | 2025-07-28 14:36 | XMS_ITS | Encounter Summary ---
Author Organization [facility] work ([facility]) Address [address] [place] [address] Care Team Providers Care Laundry Supervisor Name Role Phone Meme Steel MD Primary Care Provider [phone] Pcp, Pcp Primary Care Provider Unavailabl Guadalupe Bardales MD Primary Care Provider Sena Dominguez Unavailable [phone] Levy Barry MD Primary Care Provider Unavailab le Source Comments The information that you have received may contain highly confidential and/or federally protected health information. This information has been disclosed to you from records protected by [facility]. The law prohibits you [...] please contact the sender immediately.[facility] ([facility]) Encounter Details Date Type Department Care Team (Late st Contact Info) Description 2004 Historical Note SVMG Innorange Oy System Devyn Vásquez MD [address] [place] [address] [phone] Social History Tobacco Use Types Packs/Day Years [...] LEATHA CARRILLO - [facility] [address] [place] [phone] Brenda Clay MD [address] [facility] [address] [place] [address] 04/15/2026 10:00 AM EDT Office Visit [facility] [address] [facility] [address] [facility] [address] [place] [address] Sena Dominguez PA [address] [facility] [place] [address] documented as of this encounter Visit Diagnoses Not on filedocumented in this encounter Care Teams Laundry Supervisor Relationship Specialty Start Date End Date Meme Steel MD [address] [place] [address] 105 [place] [address] PCP - General Pediatrics 06/05/18 04/25/22 No Pcp, Pcp PCP - General 06/08/22 07/19/22 Guadalupe Mcbride MD PCP - General Family Medicine 07/20/22 11/01/23 Sena Dominguez PA [address] [place] [address] [place] [address] PCP - BRADY Physician Full Stack Developer 11/02/23 Levy Barry MD [address] [place] [address] [place] [address] PCP - General Family Medicine 12/20/23 documented as of this encounter
--- OUTSIDE RECORDS SUMMARY | 2025-07-28 14:36 | XMS_ITS | Encounter Summary ---
Author Organization [facility] work ([facility]) Address [address] [place] [address] Care Team Providers Care Operations Label Clerk Name Role Phone Meme Steel MD Primary Care Provider [phone] Pcp, Pcp Primary Care Provider Unavailabl Guadalupe Bardales MD Primary Care Provider [phone] Sena Dominguez Unavailable [phone] Levy Barry MD Primary Care Provider Unavailab le Source Comments The information that you have received may contain highly confidential and/or federally protected health information. This information has been disclosed to you from records protected by [facility]. The law prohibits you [...] contact the sender immediately.[facility] ([facility]) Encounter Details Date Type Department Care Team (Late st Contact Info) Description 2004 Historical Note SVMG Technology Underwriting [employer] (TUGG) System Devyn Vásquez MD [address] [place] [address] [phone] Social History Tobacco Use Types Packs/Day Years [...] CARRILLO - [facility] [address] [place] [phone] Brenda Clay MD [address] [facility] [address] [place] [address] 04/15/2026 10:00 AM EDT Office Visit [facility] + [facility] [address] [place] [address] Sena Dominguez PA [address] [facility] [facility] [place] [address] documented as of this encounter Visit Diagnoses Not on filedocumented in this encounter Care Teams Operations Label Clerk Relationship Specialty Start Date End Date Meme Steel MD [address] [place] [address] 105 [place] [address] PCP - General Pediatrics 06/05/18 04/25/22 No Pcp, Pcp PCP - General 06/08/22 07/19/22 Guadalupe Mcbride MD PCP - General Family Medicine 07/20/22 11/01/23 Sena Dominguez PA [address] [place] [address] [place] [address] PCP - BRADY Physician Mobile Sales Assistant 11/02/23 Levy Barry MD [address] [place] [address] [place] [address] PCP - General Family Medicine 12/20/23 documented as of this encounter
--- OUTSIDE RECORDS SUMMARY | 2025-07-28 14:36 | XMS_ITS | Encounter Summary ---
Author Organization [facility] work ([facility]) Address [address] [place] [address] Care Team Providers Care Installation Drafter Name Role Phone Meme Steel MD Primary Care Provider [phone] Pcp, Pcp Primary Care Provider Unavailabl Guadalupe Bardales MD Primary Care Provider [phone] Sena Dominguez Unavailable [phone] Levy Barry MD Primary Care Provider Unavailab le Source Comments The information that you have received may contain highly confidential and/or federally protected health information. This information has been disclosed to you from records protected by [facility]. The law prohibits [...] the sender immediately.[facility] ([facility]) Encounter Details Date Type Department Care Team (Late st Contact Info) Description 2004 Historical Note [facility]G Contraqer System Devyn Vásquez MD [address] [place] [address] [phone] Social History Tobacco Use Types Packs/Day Years [...] at [facility] [address] [facility] [address] [address] [place] [phone] Brenda Clay MD [address] [facility] [address] [place] [phone] 04/15/2026 10:00 AM EDT Office Visit LEATHA Primary [facility] at [facility] + [facility] [address] [facility] [address] [facility] [address] [place] [address] Sena Dominguez PA [address] [facility] [place] [address] documented as of this encounter Visit Diagnoses Not on filedocumented in this encounter Care Teams Installation Drafter Relationship Specialty Start Date End Date Meme Steel MD [address] [place] [address] 105 [place] [address] PCP - General Pediatrics 06/05/18 04/25/22 No Pcp, Pcp PCP - General 06/08/22 07/19/22 Guadalupe Mcbride MD PCP - General Family Medicine 07/20/22 11/01/23 Sena Dominguez PA [address] [place] [address] [place] [address] PCP - BRADY Physician Can Sterilizer 11/02/23 Levy Barry MD [address] [place] [address] [place] [address] PCP - General Family Medicine 12/20/23 documented as of this encounter
--- OUTSIDE RECORDS SUMMARY | 2025-07-28 14:36 | XMS_ITS | Encounter Summary ---
Author Organization [facility] work ([facility]) Address [address] [place] [address] Care Team Providers Care Ruby On Rails Software Developer Name Role Phone Meme Steel MD Primary Care Provider [phone] Pcp, Pcp Primary Care Provider Unavailabl Guadalupe Bardales MD Primary Care Provider [phone] Sena Dominguez Unavailable [phone] Levy Barry MD Primary Care Provider Unavailab le Source Comments The information that you have received may contain highly confidential and/or federally protected health information. This information has been disclosed to you from records protected by [facility]. The law prohibits you from [...] the sender immediately.[facility] ([facility]) Encounter Details Date Type Department Care Team (Late st Contact Info) Description 2004 Historical Note SVMG Fitness Interactive Experience System Devyn Vásquez MD [address] [place] [address] [phone] Social History Tobacco Use Types Packs/Day Years [...] LEATHA CARRILLO - [facility] [address] [facility] [address] [place] [phone] Brenda Clay MD [address] [facility] [address] [place] [address] 04/15/2026 10:00 AM EDT Office Visit [facility]HA Primary [facility] at [facility] + [facility] [address] [facility] [address] [place] [address] Sena Dominguez PA [address] [facility] [place] [address] documented as of this encounter Visit Diagnoses Not on filedocumented in this encounter Care Teams Ruby On Rails Software Developer Relationship Specialty Start Date End Date Meme Steel MD [address] [place] [address] 105 [place] [address] PCP - General Pediatrics 06/05/18 04/25/22 No Pcp, Pcp PCP - General 06/08/22 07/19/22 Guadalupe Mcbride MD PCP - General Family Medicine 07/20/22 11/01/23 Sena Dominguez PA [address] [place] [address] [place] [address] PCP - BRADY Physician Manager Bakery 11/02/23 Levy Barry MD [address] [place] [address] [place] [address] PCP - General Family Medicine 12/20/23 documented as of this encounter
--- OUTSIDE RECORDS SUMMARY | 2025-07-28 14:36 | XMS_ITS | Encounter Summary ---
Author Organization [facility] work ([facility]) Address [address] [place] [address] Care Team Providers Care Teletype Adjuster Name Role Phone Meme Steel MD Primary Care Provider [phone] Pcp, Pcp Primary Care Provider Unavailabl Guadalupe Bardales MD Primary Care Provider [phone] Sena Dominguez Unavailable [phone] Levy Barry MD Primary Care Provider Unavailab le Source Comments The information that you have received may contain highly confidential and/or federally protected health information. This information has been disclosed to you from records protected by [facility]. The law prohibits you from making any [...] information in error, please contact the sender immediately.[facility] ([facility]) Encounter Details Date Type Department Care Team (Late st Contact Info) Description 2004 Historical Note SVMG Tresata System Devyn Vásquez MD [address] [place] [address] [phone] Social History Tobacco Use Types Packs/Day Years [...] CARRILLO - [facility] [address] [facility] [address] [place] [phone] Brenda Clay MD [address] [facility] [address] [place] [address] 04/15/2026 10:00 AM EDT Office Visit LEATHA Primary Care at [facility] + [facility] [address] [facility] [address] [place] [address] Sena Dominguez PA [address] [facility] [place] [address] documented as of this encounter Visit Diagnoses Not on filedocumented in this encounter Care Teams Teletype Adjuster Relationship Specialty Start Date End Date Meme Steel MD [address] [place] [address] 105 [place] [address] PCP - General Pediatrics 06/05/18 04/25/22 No Pcp, Pcp PCP - General 06/08/22 07/19/22 Guadalupe Mcbride MD PCP - General Family Medicine 07/20/22 11/01/23 Sena Dominguez PA [address] [place] [address] [place] [address] PCP - BRADY Physician Otr Owner Operator 11/02/23 Levy Barry MD [address] [place] [address] [place] [address] PCP - General Family Medicine 12/20/23 documented as of this encounter
--- OUTSIDE RECORDS SUMMARY | 2025-07-28 14:36 | XMS_ITS | Encounter Summary ---
Author Organization [facility] work ([facility]) Address [address] [place] [address] Care Team Providers Care Engineering Geologist Name Role Phone Meme Steel MD Primary Care Provider [phone] Pcp, Pcp Primary Care Provider Unavailabl Guadalupe Bardales MD Primary Care Provider [phone] Sena Dominguez Unavailable [phone] Levy Barry MD Primary Care Provider Unavailab le Source Comments The information that you have received may contain highly confidential and/or federally protected health information. This information has been disclosed to you from records protected by [facility]. The law prohibits [...] [facility] ([facility]) Encounter Details Date Type Department Care Team (Late st Contact Info) Description 2004 Historical Note SVMG Alethia [employer] System Devyn Vásquez MD [address] [place] [address] [phone] Social History Tobacco Use Types Packs/Day Years [...] LEATHA CARRILLO - [facility] [address] [facility] [address] [place] [phone] Brenda Clay MD [address] [facility] [address] [place] [phone] 04/15/2026 10:00 AM EDT Office Visit LEATHA [facility] at [facility] + [facility] [address] [facility] [address] [place] [address] Sena Dominguez PA [address] [facility] [place] [address] documented as of this encounter Visit Diagnoses Not on filedocumented in this encounter Care Teams Engineering Geologist Relationship Specialty Start Date End Date Meme Steel MD [address] [place] [address] 105 [place] [address] PCP - General Pediatrics 06/05/18 04/25/22 No Pcp, Pcp PCP - General 06/08/22 07/19/22 Guadalupe Mcbride MD PCP - General Family Medicine 07/20/22 11/01/23 Sena Dominguez PA [address] [place] [address] [place] [address] PCP - BRADY Physician Floodplain Manager 11/02/23 Levy Barry MD [address] [place] [address] [place] [address] PCP - General Family Medicine 12/20/23 documented as of this encounter
--- OUTSIDE RECORDS SUMMARY | 2025-07-28 14:36 | XMS_ITS | Encounter Summary ---
Author Organization [facility] work ([facility]) Address [address] [facility] [place] [address] Care Team Providers Care Loom Cleaner Name Role Phone Meme Steel MD Primary Care Provider [phone] No Pcp, Pcp Primary Care Provider Unavailabl Guadalupe Bardales MD Primary Care Provider [phone] Sena Dominguez Unavailable [phone] Levy Barry MD Primary Care Provider Unavailab le Source Comments The information that you have received may contain highly confidential and/or federally protected health information. This information has been disclosed to you from records protected by [facility]. The law prohibits you [...] contact the sender immediately.[facility] ([facility]) Encounter Details Date Type Department Care Team (Late st Contact Info) Description 2004 Historical Note SVMG OpenTable System Devyn Vásquez MD [address] [place] [address] [phone] Social History Tobacco Use Types Packs/Day Years [...] LEATHA CARRILLO - [facility] [address] [facility] [address] [place] [phone] Brenda Clay MD [address] [facility] [address] [place] [address] 04/15/2026 10:00 AM EDT Office Visit LEATHA [facility] at [facility] [address] [facility] [address] [place] [address] Sena Dominguez PA [address] [facility] [place] [address] documented as of this encounter Visit Diagnoses Not on filedocumented in this encounter Care Teams Loom Cleaner Relationship Specialty Start Date End Date Meme Steel MD [address] [place] [address] 105 [place] [address] PCP - General Pediatrics 06/05/18 04/25/22 No Pcp, Pcp PCP - General 06/08/22 07/19/22 Guadalupe Mcbride MD PCP - General Family Medicine 07/20/22 11/01/23 Sena Dominguez PA [address] [place] [address] [place] [address] PCP - BRADY Physician Cable Splicing Technician 11/02/23 Levy Barry MD [address] [place] [address] [place] [address] PCP - General Family Medicine 12/20/23 documented as of this encounter
--- OUTSIDE RECORDS SUMMARY | 2025-07-28 14:36 | XMS_ITS | Encounter Summary ---
Author Organization [facility] work ([facility]) Address [address] [place] [address] Care Team Providers Care Concrete Grinder Operator Name Role Phone Meme Steel MD Primary Care Provider [phone] Pcp, Pcp Primary Care Provider Unavailabl Guadalupe Bardales MD Primary Care Provider [phone] Sena Dominguez Unavailable [phone] Levy Barry MD Primary Care Provider Unavailab le Source Comments The information that you have received may contain highly confidential and/or federally protected health information. This information has been disclosed to you from records protected by [facility]. The law prohibits you from [...] information in error, please contact the sender immediately.[facility] ([facility]) Encounter Details Date Type Department Care Team (Late st Contact Info) Description 2004 Historical Note [facility] [employer] System Devyn Vásquez MD [address] [place] [address] [phone] Social History Tobacco Use Types Packs/Day Years [...] LEATHA CARRILLO - [facility] at [facility] [address] [facility] [address] [place] [phone] Brenda Clay MD [address] [facility] [address] [place] [address] 04/15/2026 10:00 AM EDT Office Visit [facility] at [facility] + [facility] [address] [facility] [address] [place] [address] Sena Dominguez PA [address] [facility] [place] [address] documented as of this encounter Visit Diagnoses Not on filedocumented in this encounter Care Teams Concrete Grinder Operator Relationship Specialty Start Date End Date Meme Steel MD [address] [place] [address] 105 [place] [address] PCP - General Pediatrics 06/05/18 04/25/22 No Pcp, Pcp PCP - General 06/08/22 07/19/22 Guadalupe Mcbride MD PCP - General Family Medicine 07/20/22 11/01/23 Sena Dominguez PA [address] [place] [address] [place] [address] PCP - BRADY Physician Cellar Packer 11/02/23 Levy Barry MD [address] [place] [address] [place] [address] PCP - General Family Medicine 12/20/23 documented as of this encounter
--- OUTSIDE RECORDS SUMMARY | 2025-07-28 14:36 | XMS_ITS | Encounter Summary ---
Author Organization [facility] work ([facility]) Address [address] [place] [address] Care Team Providers Care Auto Body Detailer Name Role Phone Meme Steel MD Primary Care Provider [phone] Pcp, Pcp Primary Care Provider Unavailabl Guadalupe Bardales MD Primary Care Provider [phone] Sena Dominguez Unavailable [phone] Levy Barry MD Primary Care Provider Unavailab le Source Comments The information that you have received may contain highly confidential and/or federally protected health information. This information has been disclosed to you from records protected by [facility]. The law prohibits you from [...] please contact the sender immediately.[facility] ([facility]) Encounter Details Date Type Department Care Team (Late st Contact Info) Description 2004 Historical Note [facility] [employer] System Devyn Vásquez MD [address] [place] [address] [phone] Social History Tobacco Use Types Packs/Day Years [...] CARRILLO - [facility] [address] [facility] [address] [place] [phone] Brenda Clay MD [address] [facility] [address] [place] [address] 04/15/2026 10:00 AM EDT Office Visit [facility] + [facility] [address] [facility] [address] [place] [address] Sena Dominguez PA [address] [facility] [place] [address] documented as of this encounter Visit Diagnoses Not on filedocumented in this encounter Care Teams Auto Body Detailer Relationship Specialty Start Date End Date Meme Steel MD [address] [place] [address] 105 [place] [address] PCP - General Pediatrics 06/05/18 04/25/22 No Pcp, Pcp PCP - General 06/08/22 07/19/22 Guadalupe Mcbride MD PCP - General Family Medicine 07/20/22 11/01/23 Sena Dominguez PA [address] [place] [address] [place] [address] PCP - BRADY Physician Welder Manufacture 11/02/23 Levy Barry MD [address] [place] [address] [place] [address] PCP - General Family Medicine 12/20/23 documented as of this encounter
--- OUTSIDE RECORDS SUMMARY | 2025-07-28 14:37 | XMS_ITS | Encounter Summary ---
Author Organization [facility] work ([facility]) Address [address] [place] [address] Care Team Providers Care Sports Fitness And Wellness Director Name Role Phone Meme Steel MD Primary Care Provider [phone] Pcp, Pcp Primary Care Provider Unavailabl Guadalupe Bardales MD Primary Care Provider [phone] Sena Dominguez Unavailable [phone] Levy Barry MD Primary Care Provider Unavailab le Source Comments The information that you have received may contain highly confidential and/or federally protected health information. This information has been disclosed to you from records protected by [facility]. The law prohibits you from [...] error, please contact the sender immediately.[facility] ([facility]) Encounter Details Date Type Department Care Team (Late st Contact Info) Description 11/16/2006 Historical Note [facility] FanFound System Devyn Vásquez MD [address] [place] [address] [phone] Social History Tobacco Use Types Packs/Day Years [...] LEATHA CARRILLO - [facility] [address] [facility] [address] [place] [phone] Brenda Clay MD [address] [facility] [address] [place] [address] 04/15/2026 10:00 AM EDT Office Visit [facility]HA [facility] at [facility] + [facility] [address] [facility] [address] [place] [address] Sena Dominguez PA [address] [facility] [place] [address] documented as of this encounter Visit Diagnoses Not on filedocumented in this encounter Care Teams Sports Fitness And Wellness Director Relationship Specialty Start Date End Date Meme Steel MD [address] [place] [address] 105 [place] [address] PCP - General Pediatrics 06/05/18 04/25/22 No Pcp, Pcp PCP - General 06/08/22 07/19/22 Guadalupe Mcbride MD PCP - General Family Medicine 07/20/22 11/01/23 Sena Dominguez PA [address] [place] [address] [place] [address] PCP - BRADY Physician Jockey Room Custodian 11/02/23 Levy Barry MD [address] [place] [address] [place] [address] PCP - General Family Medicine 12/20/23 documented as of this encounter
--- OUTSIDE RECORDS SUMMARY | 2025-07-28 14:37 | XMS_ITS | Encounter Summary ---
Author Organization [facility] work ([facility]) Address [address] [place] [address] Care Team Providers Care Donor Relations Coordinator Name Role Phone Meme Steel MD Primary Care Provider [phone] Pcp, Pcp Primary Care Provider Unavailabl Guadalupe Bardales MD Primary Care Provider [phone] Sena Dominguez Unavailable [phone] Levy Barry MD Primary Care Provider Unavailab le Source Comments The information that you have received may contain highly confidential and/or federally protected health information. This information has been disclosed to you from records protected by [email or web address]. The law prohibits you from [...] the sender immediately.[facility] ([facility]) Encounter Details Date Type Department Care Team (Late st Contact Info) Description 03/11/2007 Historical Note [facility] RedCap System Devyn Vásquez MD [address] [place] [address] [phone] Social History Tobacco Use Types Packs/Day Years [...] Visit LEATHA CARRILLO - [facility] [address] [facility] [address] [place] [phone] Brenda Clay MD [address] [facility] [address] [place] [address] 04/15/2026 10:00 AM EDT Office Visit [facility]HA [facility] at [facility] + [facility] [address] [facility] [address] [place] [address] Sena Dominguez PA [address] [facility] [place] [address] documented as of this encounter Visit Diagnoses Not on filedocumented in this encounter Care Teams Donor Relations Coordinator Relationship Specialty Start Date End Date Meme Steel MD [address] [place] [address] 105 [place] [address] PCP - General Pediatrics 06/05/18 04/25/22 No Pcp, Pcp PCP - General 06/08/22 07/19/22 Guadalupe Mcbride MD PCP - General Family Medicine 07/20/22 11/01/23 Sena Dominguez PA [address] [place] [address] [place] [address] PCP - BRADY Physician Head Stock Operator 11/02/23 Levy Barry MD [address] [place] [address] [place] [address] PCP - General Family Medicine 12/20/23 documented as of this encounter
--- OUTSIDE RECORDS SUMMARY | 2025-07-28 14:37 | XMS_ITS | Encounter Summary ---
Author Organization [facility] work ([facility]) Address [address] [place] [address] Care Team Providers Care Clinical Investigator Name Role Phone Meme Steel MD Primary Care Provider [phone] Pcp, Pcp Primary Care Provider Unavailabl Guadalupe Bardales MD Primary Care Provider [phone] Sena Dominguez Unavailable [phone] Levy Barry MD Primary Care Provider Unavailab le Source Comments The information that you have received may contain highly confidential and/or federally protected health information. This information has been disclosed to you from records protected by [facility]. The law prohibits you from [...] please contact the sender immediately.[facility] ([facility]) Encounter Details Date Type Department Care Team (Late st Contact Info) Description 05/29/2006 Historical Note [facility] [employer] System Devyn Vásquez MD [address] [place] [address] [phone] Social History Tobacco Use Types Packs/Day Years [...] - [facility] [address] [facility] [address] [place] [phone] Brenda Clay MD [address] [facility] [address] [place] [address] 04/15/2026 10:00 AM EDT Office Visit LEATHA [facility] at [facility] + [facility] [address] [facility] [address] [place] [address] Sena Dominguez PA [address] [facility] [place] [address] documented as of this encounter Visit Diagnoses Not on filedocumented in this encounter Care Teams Clinical Investigator Relationship Specialty Start Date End Date Meme Steel MD [address] [place] [address] 105 [place] [address] PCP - General Pediatrics 06/05/18 04/25/22 No Pcp, Pcp PCP - General 06/08/22 07/19/22 Guadalupe Mcbride MD PCP - General Family Medicine 07/20/22 11/01/23 Sena Dominguez PA [address] [place] [address] [place] [address] PCP - BRADY Physician Meter Setter 11/02/23 Levy Barry MD [address] [place] [address] [place] [address] PCP - General Family Medicine 12/20/23 documented as of this encounter
--- OUTSIDE RECORDS SUMMARY | 2025-07-28 14:37 | XMS_ITS | Encounter Summary ---
Author Organization [facility] work ([facility]) Address [address] [place] [address] Care Team Providers Care Retail Special Event Associate Name Role Phone Meme Steel MD Primary Care Provider [phone] Pcp, Pcp Primary Care Provider Unavailabl Guadalupe Bardales MD Primary Care Provider [phone] Sena Dominguez Unavailable [phone] Levy Barry MD Primary Care Provider Unavailab le Source Comments The information that you have received may contain highly confidential and/or federally protected health information. This information has been disclosed to you from records protected by [facility]. The law [...] contact the sender immediately.[facility] ([facility]) Encounter Details Date Type Department Care Team (Late st Contact Info) Description 06/01/2006 Historical Note SVM[facility] [employer] System Devyn Vásquez MD [address] [place] [address] [phone] Social History Tobacco Use Types Packs/Day Years [...] CARRILLO - [facility] [address] [facility] [address] [place] [phone] Brenda Clay MD [address] [facility] [address] [place] [address] 04/15/2026 10:00 AM EDT Office Visit [facility]HA [facility] at [facility] + [facility] [address] [facility] [place] [facility] [address] [place] [address] Sena Dominguez PA [address] [facility] [place] [facility] [place] [address] documented as of this encounter Visit Diagnoses Not on filedocumented in this encounter Care Teams Retail Special Event Associate Relationship Specialty Start Date End Date Meme Steel MD [address] [place] [address] 105 [place] [address] PCP - General Pediatrics 06/05/18 04/25/22 No Pcp, Pcp PCP - General 06/08/22 07/19/22 Guadalupe Mcbride MD PCP - General Family Medicine 07/20/22 11/01/23 Sena Dominguez PA [address] [place] [address] [place] [address] PCP - BRADY Physician Director Of Employer Services 11/02/23 Levy Barry MD [address] [place] [address] [place] [address] PCP - General Family Medicine 12/20/23 documented as of this encounter
--- OUTSIDE RECORDS SUMMARY | 2025-07-28 14:37 | XMS_ITS | Encounter Summary ---
Author Organization [facility] work ([facility]) Address [address] [place] [address] Care Team Providers Care Snow Groomer Name Role Phone Meme Steel MD Primary Care Provider [phone] Pcp, Pcp Primary Care Provider Unavailabl Guadalupe Bardales MD Primary Care Provider [phone] Sena Dominguez Unavailable [phone] Levy Barry MD Primary Care Provider Unavailab le Source Comments The information that you have received may contain highly confidential and/or federally protected health information. This information has been disclosed to you from records protected by [facility]. The law prohibits you from making [...] error, please contact the sender immediately.[facility] ([facility]) Encounter Details Date Type Department Care Team (Late st Contact Info) Description 05/08/2012 Historical Note SVMG [employer] System Devyn Vásquez MD [address] [place] [address] [phone] Social History Tobacco Use Types Packs/Day Years [...] LEATHA CARRILLO - [facility] [address] [facility] [address] [place] [phone] Brenda Clay MD [address] [facility] [address] [place] [address] 04/15/2026 10:00 AM EDT Office Visit LEATHA Primary [facility] at [facility] + [facility] [address] [facility] [address] [place] [address] Sena Dominguez PA [address] [facility] [place] [address] documented as of this encounter Visit Diagnoses Not on filedocumented in this encounter Care Teams Snow Groomer Relationship Specialty Start Date End Date Meme Steel MD [address] [place] [address] 105 [place] [address] PCP - General Pediatrics 06/05/18 04/25/22 No Pcp, Pcp PCP - General 06/08/22 07/19/22 Guadalupe Mcbride MD PCP - General Family Medicine 07/20/22 11/01/23 Sena Dominguez PA [address] [place] [address] [place] [address] PCP - BRADY Physician Ultimate Hoops Trainer 11/02/23 Levy Barry MD [address] [place] [address] [place] [address] PCP - General Family Medicine 12/20/23 documented as of this encounter
--- OUTSIDE RECORDS SUMMARY | 2025-07-28 14:37 | XMS_ITS | Encounter Summary ---
Author Organization [facility] work ([facility]) Address [address] [place] [address] Care Team Providers Care Laser Set Up Operator Name Role Phone Meme Steel MD Primary Care Provider [phone] Pcp, Pcp Primary Care Provider Unavailabl Guadalupe Bardales MD Primary Care Provider [phone] Sena Dominguez Unavailable [phone] Levy Barry MD Primary Care Provider Unavailab le Source Comments The information that you have received may contain highly confidential and/or federally protected health information. This information has been disclosed to you from records protected by [facility]. The law prohibits you from [...] error, please contact the sender immediately.[facility] ([facility]) Encounter Details Date Type Department Care Team (Late st Contact Info) Description 2004 Historical Note [facility]G Pix[employer] System Devyn Vásquez MD [address] [place] [address] [phone] Social History Tobacco Use Types Packs/Day Years [...] CARRILLO - [facility] [address] [facility] [address] [place] [phone] Brenda Clay MD [address] [facility] [address] [place] [address] 04/15/2026 10:00 AM EDT Office Visit LEATHA Primary Care at [facility] + [facility] [address] [facility] [address] [place] [address] Sena Dominguez PA [address] [facility] [place] [address] documented as of this encounter Visit Diagnoses Not on filedocumented in this encounter Care Teams Laser Set Up Operator Relationship Specialty Start Date End Date Meme Steel MD [address] [place] [address] 105 [place] [address] PCP - General Pediatrics 06/05/18 04/25/22 No Pcp, Pcp PCP - General 06/08/22 07/19/22 Guadalupe Mcbride MD PCP - General Family Medicine 07/20/22 11/01/23 Sena Dominguez PA [address] [place] [address] [place] [address] PCP - BRADY Physician Geochemical Manager 11/02/23 Levy Barry MD [address] [place] [address] [place] [address] PCP - General Family Medicine 12/20/23 documented as of this encounter
--- OUTSIDE RECORDS SUMMARY | 2025-07-28 14:37 | XMS_ITS | Encounter Summary ---
Author Organization [facility] work ([facility]) Address [address] [place] [address] Care Team Providers Care Vice President Of Brand Management Name Role Phone Meme Steel MD Primary Care Provider [phone] No Pcp, Pcp Primary Care Provider Unavailabl Guadalupe Bardales MD Primary Care Provider [phone] Sena Dominguez Unavailable [phone] Levy Barry MD Primary Care Provider Unavailab le Source Comments The information that you have received may contain highly confidential and/or federally protected health information. This information has been disclosed to you from records protected by [facility]. The law prohibits you [...] Contact Info) Description 05/24/2012 Historical Note [facility] Serv[employer] System Devyn Vásquez MD [address] [place] [address] [phone] Social History Tobacco Use Types Packs/Day Years [...] CARRILLO - [facility] [address] [facility] [address] [place] [phone] Brenda Clay MD [address] [facility] [address] [place] [address] 04/15/2026 10:00 AM EDT Office Visit LEATHA [facility] at [facility] [address] [facility] [address] [place] [address] Sena Dominguez PA [address] [facility] [place] [address] documented as of this encounter Visit Diagnoses Not on filedocumented in this encounter Care Teams Vice President Of Brand Management Relationship Specialty Start Date End Date Meme Steel MD [address] [place] [address] 105 [place] [address] PCP - General Pediatrics 06/05/18 04/25/22 No Pcp, Pcp PCP - General 06/08/22 07/19/22 Guadalupe Mcbride MD PCP - General Family Medicine 07/20/22 11/01/23 Sena Dominguez PA [address] [place] [address] [place] [address] PCP - BRADY Physician Heel Seat Sander 11/02/23 Levy Barry MD [address] [place] [address] [place] [address] PCP - General Family Medicine 12/20/23 documented as of this encounter
--- OUTSIDE RECORDS SUMMARY | 2025-07-28 14:37 | XMS_ITS | Encounter Summary ---
Author Organization [facility] work ([facility]) Address [address] [facility] [facility] [address] [place] [address] Care Team Providers Care Heat Treater Apprentice Name Role Phone Meme Steel MD Primary Care Provider [phone] No Pcp, Pcp Primary Care Provider Unavailabl Guadalupe Bardales MD Primary Care Provider Sena Dominguez Unavailable [phone] Levy Barry MD Primary Care Provider Unavailab le Source Comments The information that you have received may contain highly confidential and/or federally protected health information. This information has been disclosed to you from records protected by [facility]. The law prohibits you from making any [...] contact the sender immediately.[facility] ([facility]) Encounter Details Date Type Department Care Team (Late st Contact Info) Description 06/19/2007 Historical Note SVMG [employer] System Devyn Vásquez MD [address] [place] [address] [phone] Social History Tobacco Use Types Packs/Day Years [...] Office Visit LEATHA CARRILLO - [facility] [address] [facility] [address] [place] [phone] Brenda Clay MD [address] [facility] [address] [place] [address] 04/15/2026 10:00 AM EDT Office Visit LE[facility]HA [facility] + [facility] [address] [facility] [address] [place] [address] Sena Dominguez PA [address] [facility] [place] [address] documented as of this encounter Visit Diagnoses Not on filedocumented in this encounter Care Teams Heat Treater Apprentice Relationship Specialty Start Date End Date Meme Steel MD [address] [place] [address] 105 [place] [address] PCP - General Pediatrics 06/05/18 04/25/22 No Pcp, Pcp PCP - General 06/08/22 07/19/22 Guadalupe Mcbride MD PCP - General Family Medicine 07/20/22 11/01/23 Sena Dominguez PA [address] [place] [address] [place] [address] PCP - BRADY Physician Bag Tester 11/02/23 Levy Barry MD [address] [place] [address] [place] [address] PCP - General Family Medicine 12/20/23 documented as of this encounter
--- OUTSIDE RECORDS SUMMARY | 2025-07-28 14:37 | XMS_ITS | Encounter Summary ---
Author Organization [facility] work ([facility]) Address [address] [place] [address] Care Team Providers Care Press Clipper Name Role Phone Meme Steel MD Primary Care Provider [phone] Pcp, Pcp Primary Care Provider Unavailabl Guadalupe Bardales MD Primary Care Provider [phone] Sena Dominguez Unavailable [phone] Levy Barry MD Primary Care Provider Unavailab le Source Comments The information that you have received may contain highly confidential and/or federally protected health information. This information has been disclosed to you from records protected by [facility]. The law prohibits you [...] sender immediately.[facility] ([facility]) Encounter Details Date Type Department Care Team (Late st Contact Info) Description 2004 Historical Note SVMG [employer] System Devyn Vásquez MD [address] [place] [address] [phone] Social History Tobacco Use Types Packs/Day Years [...] Visit LEATHA CARRILLO - [facility] [address] [facility] [address] [place] [phone] Brenda Clay MD [address] [facility] [address] [place] [address] 04/15/2026 10:00 AM EDT Office Visit [facility] at [facility] + [facility] [address] [facility] [address] [place] [address] Sena Dominguez PA [address] [facility] [place] [address] documented as of this encounter Visit Diagnoses Not on filedocumented in this encounter Care Teams Press Clipper Relationship Specialty Start Date End Date Meme Steel MD [address] [place] [address] 105 [place] [address] PCP - General Pediatrics 06/05/18 04/25/22 No Pcp, Pcp PCP - General 06/08/22 07/19/22 Guadalupe Mcbride MD PCP - General Family Medicine 07/20/22 11/01/23 Sena Dominguez PA [address] [place] [address] [place] [address] PCP - BRADY Physician Gas Appliance Servicer 11/02/23 Levy Barry MD [address] [place] [address] [place] [address] PCP - General Family Medicine 12/20/23 documented as of this encounter
--- OUTSIDE RECORDS SUMMARY | 2025-07-28 14:37 | XMS_ITS | Encounter Summary ---
Author Organization [facility] work ([facility]) Address [address] [place] [address] Care Team Providers Care Editing Intern Name Role Phone Meme Steel MD Primary Care Provider [phone] Pcp, Pcp Primary Care Provider Unavailabl Guadalupe Bardales MD Primary Care Provider [phone] Sena Dominguez Unavailable [phone] Levy Barry MD Primary Care Provider Unavailab le Source Comments The information that you have received may contain highly confidential and/or federally protected health information. This information has been disclosed to you from records protected by [facility]. The law prohibits you [...] contact the sender immediately.[facility] ([facility]) Encounter Details Date Type Department Care Team (Late st Contact Info) Description 2004 Historical Note SVMG Your [employer] System Devyn Vásquez MD [address] [place] [phone] Social History Tobacco Use Types Packs/Day Years [...] Visit LEATHA CARRILLO - [facility] [address] [facility] [address] [place] [phone] Brenda Clay MD [address] [facility] [address] [place] [address] 04/15/2026 10:00 AM EDT Office Visit [facility] [address] [facility] [address] [place] [address] Sena Dominguez PA [address] [facility] [place] [address] documented as of this encounter Visit Diagnoses Not on filedocumented in this encounter Care Teams Editing Intern Relationship Specialty Start Date End Date Meme Steel MD [address] [place] [address] 105 [place] [address] PCP - General Pediatrics 06/05/18 04/25/22 No Pcp, Pcp PCP - General 06/08/22 07/19/22 Guadalupe Mcbride MD PCP - General Family Medicine 07/20/22 11/01/23 Sena Dominguez PA [address] [place] [address] [place] [address] PCP - BRADY Physician Copying Machine Mechanic 11/02/23 Levy Barry MD [address] [place] [address] [place] [address] PCP - General Family Medicine 12/20/23 documented as of this encounter
--- OUTSIDE RECORDS SUMMARY | 2025-07-28 14:37 | XMS_ITS | Encounter Summary ---
Author Organization [facility] work ([facility]) Address [address] [place] [address] Care Team Providers Care Plant Biology Professor Name Role Phone Meme Steel MD Primary Care Provider [phone] Pcp, Pcp Primary Care Provider Unavailabl Guadalupe Bardales MD Primary Care Provider Sena Dominguez Unavailable [phone] Levy Barry MD Primary Care Provider Unavailab le Source Comments The information that you have received may contain highly confidential and/or federally protected health information. This information has been disclosed to you from records protected by [facility]. The law prohibits you [...] information in error, please contact the sender immediately.[facility] ([facility]) Encounter Details Date Type Department Care Team (Late st Contact Info) Description 2004 Historical Note SVMG [employer] System Devyn Vásquez MD [address] [place] [address] [phone] Social History Tobacco Use Types Packs/Day Years [...] LEATHA CARRILLO - [facility] [address] [facility] [address] [place] [phone] Brenda Clay MD [address] [facility] [address] [place] [phone] 04/15/2026 10:00 AM EDT Office Visit [facility]HA [facility] at [facility] + [facility] [address] [facility] [address] [place] [address] Sena Dominguez PA [address] [facility] [place] [address] documented as of this encounter Visit Diagnoses Not on filedocumented in this encounter Care Teams Plant Biology Professor Relationship Specialty Start Date End Date Meme Steel MD [address] [place] [address] 105 [place] [address] PCP - General Pediatrics 06/05/18 04/25/22 No Pcp, Pcp PCP - General 06/08/22 07/19/22 Guadalupe Mcbride MD PCP - General Family Medicine 07/20/22 11/01/23 Sena Dominguez PA [address] [place] [address] [place] [address] PCP - BRADY Physician Riding Double 11/02/23 Levy Barry MD [address] [place] [address] [place] [address] PCP - General Family Medicine 12/20/23 documented as of this encounter
--- OUTSIDE RECORDS SUMMARY | 2025-07-28 14:37 | XMS_ITS | Encounter Summary ---
Author Organization [facility] work ([facility]) Address [address] [place] [address] Care Team Providers Care Youth Minister Name Role Phone Meme Steel MD Primary Care Provider [phone] Pcp, Pcp Primary Care Provider Unavailabl Guadalupe Bardales MD Primary Care Provider [phone] Sena Dominguez Unavailable [phone] Levy Barry MD Primary Care Provider Unavailab le Source Comments The information that you have received may contain highly confidential and/or federally protected health information. This information has been disclosed to you from records protected by [facility]. The law prohibits [...] please contact the sender immediately.[facility] ([facility]) Encounter Details Date Type Department Care Team (Late st Contact Info) Description 11/16/2006 Historical Note SVMG [employer] System Devyn Vásquez MD [address] [place] [address] [phone] Social History Tobacco Use Types Packs/Day Years [...] LEATHA CARRILLO - [facility] [address] [facility] [address] [place] [phone] Brenda Clay MD [address] [facility] [address] [place] [address] 04/15/2026 10:00 AM EDT Office Visit [facility] + [facility] [address] [facility] [address] [place] [address] Sena Dominguez PA [address] [facility] [place] [address] documented as of this encounter Visit Diagnoses Not on filedocumented in this encounter Care Teams Youth Minister Relationship Specialty Start Date End Date Meme Steel MD [address] [place] [address] 105 [place] [address] PCP - General Pediatrics 06/05/18 04/25/22 No Pcp, Pcp PCP - General 06/08/22 07/19/22 Guadalupe Mcbride MD PCP - General Family Medicine 07/20/22 11/01/23 Sena Dominguez PA [address] [place] [address] [place] [address] PCP - BRADY Physician Engineering Leader 11/02/23 Levy Barry MD [address] [place] [address] [place] [address] PCP - General Family Medicine 12/20/23 documented as of this encounter
--- OUTSIDE RECORDS SUMMARY | 2025-07-28 14:37 | XMS_ITS | Encounter Summary ---
Author Organization [facility] work ([facility]) Address [address] [place] [address] Care Team Providers Care Bag Checker Name Role Phone Meme Steel MD Primary Care Provider [phone] No Pcp, Pcp Primary Care Provider Unavailabl Guadalupe Bardales MD Primary Care Provider [phone] Sena Dominguez Unavailable [phone] Levy Barry MD Primary Care Provider Unavailab le Source Comments The information that you have received may contain highly confidential and/or federally protected health information. This information has been disclosed to you from records protected by [facility]. The law prohibits you [...] error, please contact the sender immediately.[facility] ([facility]) Encounter Details Date Type Department Care Team (Late st Contact Info) Description 2004 Historical Note SVMG [employer] System Devyn Vásquez MD [address] [place] [address] [phone] Social History Tobacco Use Types Packs/Day Years [...] AM EST Office Visit LEATHA CARRILLO - [facility] at [facility] [address] [facility] [address] [place] [phone] Brenda lCay MD [address] [facility] [address] [place] [address] 04/15/2026 10:00 AM EDT Office Visit [facility] + [facility] [address] [facility] [address] [place] [address] Sena Dominguez PA [address] [facility] [place] [address] documented as of this encounter Visit Diagnoses Not on filedocumented in this encounter Care Teams Bag Checker Relationship Specialty Start Date End Date Meme Steel MD [address] [place] [address] 105 [place] [address] PCP - General Pediatrics 06/05/18 04/25/22 No Pcp, Pcp PCP - General 06/08/22 07/19/22 Guadalupe Mcbride MD PCP - General Family Medicine 07/20/22 11/01/23 Sena Dominguez PA [address] [place] [address] [place] [address] PCP - BRADY Physician Campaign Developer 11/02/23 Levy Barry MD [address] [place] [address] [place] [address] PCP - General Family Medicine 12/20/23 documented as of this encounter
--- OUTSIDE RECORDS SUMMARY | 2025-07-28 14:37 | XMS_ITS | Encounter Summary ---
Author Organization [facility] work ([facility]) Address [address] [place] [address] Care Team Providers Care Senior Associate Name Role Phone Meme Steel MD Primary Care Provider [phone] Pcp, Pcp Primary Care Provider Unavailabl Guadalupe Bardales MD Primary Care Provider [phone] Sena Dominguez Unavailable [phone] Levy Barry MD Primary Care Provider Unavailab le Source Comments The information that you have received may contain highly confidential and/or federally protected health information. This information has been disclosed to you from records protected by [facility]. The law prohibits you from [...] sender immediately.[facility] ([facility]) Encounter Details Date Type Department Care Team (Late st Contact Info) Description 06/01/2006 Historical Note SVMG [employer] System Devyn Vásquez MD [address] [place] [address] [phone] Social History Tobacco Use Types Packs/Day Years [...] LEATHA CARRILLO - [facility] [address] [facility] [address] [place] [phone] Brenda Clay MD [address] [facility] [address] [place] [address] 04/15/2026 10:00 AM EDT Office Visit [facility]HA [facility] at [facility] + [facility] [address] [facility] [address] [place] [address] Sena Dominguez PA [address] [facility] [place] [address] documented as of this encounter Visit Diagnoses Not on filedocumented in this encounter Care Teams Senior Associate Relationship Specialty Start Date End Date Meme Steel MD [address] [place] [address] 105 [place] [address] PCP - General Pediatrics 06/05/18 04/25/22 No Pcp, Pcp PCP - General 06/08/22 07/19/22 Guadalupe Mcbride MD PCP - General Family Medicine 07/20/22 11/01/23 Sena Dominguez PA [address] [place] [address] [place] [address] PCP - BRADY Physician Hand Fur Cleaner 11/02/23 Levy Barry MD [address] [place] [address] [place] [address] PCP - General Family Medicine 12/20/23 documented as of this encounter
--- OUTSIDE RECORDS SUMMARY | 2025-07-28 14:37 | XMS_ITS | Encounter Summary ---
Author Organization [facility] work ([facility]) Address [address] [facility] [address] [facility] [address] [address] [place] [address] Care Team Providers Care Molten Iron Pourer Name Role Phone Meme Steel MD Primary Care Provider [phone] Pcp, Pcp Primary Care Provider Unavailabl Guadalupe Bardales MD Primary Care Provider Sena Dominguez Unavailable [phone] Levy Barry MD Primary Care Provider Unavailab le Source Comments The information that you have received may contain highly confidential and/or federally protected health information. This information has been disclosed to you from records protected by [facility]. The law prohibits you [...] please contact the sender immediately.[facility] ([facility]) Encounter Details Date Type Department Care Team (Late st Contact Info) Description 2004 Historical Note SVMG [employer] System Devyn Vásquez MD [address] [place] [address] [phone] Social History Tobacco Use Types Packs/Day Years [...] LEATHA CARRILLO - [facility] at [facility] [address] [facility] [address] [place] [phone] Brenda Clay MD [address] [facility] [address] [place] [address] 04/15/2026 10:00 AM EDT Office Visit [facility]HA [facility] at [facility] + [facility] [address] [facility] [address] [place] [address] Sena Dominguez PA [address] [facility] [place] [address] documented as of this encounter Visit Diagnoses Not on filedocumented in this encounter Care Teams Molten Iron Pourer Relationship Specialty Start Date End Date Meme Steel MD [address] [place] [address] 105 [place] [address] PCP - General Pediatrics 06/05/18 04/25/22 No Pcp, Pcp PCP - General 06/08/22 07/19/22 Guadalupe Mcbride MD PCP - General Family Medicine 07/20/22 11/01/23 Sena Dominguez PA [address] [place] [address] [place] [address] PCP - BRADY Physician Field Contact Person 11/02/23 Levy Barry MD [address] [place] [address] [place] [address] PCP - General Family Medicine 12/20/23 documented as of this encounter
--- OUTSIDE RECORDS SUMMARY | 2025-07-28 14:37 | XMS_ITS | Encounter Summary ---
Author Organization [facility] work ([facility]) Address [address] [place] [address] Care Team Providers Care Steel Plate Printer Name Role Phone Meme Steel MD Primary Care Provider [phone] No Pcp, Pcp Primary Care Provider Unavailabl Guadalupe Bardales MD Primary Care Provider [phone] Sena Dominguez Unavailable [phone] Levy Barry MD Primary Care Provider Unavailab le Source Comments The information that you have received may contain highly confidential and/or federally protected health information. This information has been disclosed to you from records protected by [facility]. The law prohibits you from making [...] please contact the sender immediately.[facility] ([facility]) Encounter Details Date Type Department Care Team (Late st Contact Info) Description 06/14/2007 Historical Note [facility]G Dsg.nr System Devyn Vásquez MD [address] [place] [address] [phone] Social History Tobacco Use Types Packs/Day Years [...] LEATHA CARRILLO - [facility] at [facility] [address] [facility] [address] [place] [phone] Brenda Clay MD [address] [facility] [address] [place] [address] 04/15/2026 10:00 AM EDT Office Visit [facility]HA [facility] at [facility] + [facility] [address] [facility] [address] [place] [address] Sena Dominguez PA [address] [facility] [place] [address] documented as of this encounter Visit Diagnoses Not on filedocumented in this encounter Care Teams Steel Plate Printer Relationship Specialty Start Date End Date Meme Steel MD [address] [place] [address] 105 [place] [address] PCP - General Pediatrics 06/05/18 04/25/22 No Pcp, Pcp PCP - General 06/08/22 07/19/22 Guadalupe Mcbride MD PCP - General Family Medicine 07/20/22 11/01/23 Sena Dominguez PA [address] [place] [address] [place] [address] PCP - BRADY Physician Sandblaster Supervisor 11/02/23 Levy Barry MD [address] [place] [address] [place] [address] PCP - General Family Medicine 12/20/23 documented as of this encounter
--- OUTSIDE RECORDS SUMMARY | 2025-07-28 14:37 | XMS_ITS | Encounter Summary ---
Author Organization [facility] work ([facility]) Address [address] [facility] [address] [place] [address] Care Team Providers Care Market Development Specialist Name Role Phone Meme Steel MD Primary Care Provider [phone] Pcp, Pcp Primary Care Provider Unavailabl Guadalupe Bardales MD Primary Care Provider [phone] Sena Dominguez Unavailable Levy Barry MD Primary Care Provider Unavailab le Source Comments The information that you have received may contain highly confidential and/or federally protected health information. This information has been disclosed to you from records protected by [facility]. The law prohibits you from [...] sender immediately.[facility] ([facility]) Encounter Details Date Type Department Care Team (Late st Contact Info) Description 2004 Historical Note SVMG [email or web address] System Devyn Vásquez MD [address] [place] [address] [phone] Social History Tobacco Use Types Packs/Day Years [...] - [facility] [address] [facility] [address] [place] [phone] Brenda Clay MD [address] [facility] [address] [place] [address] 04/15/2026 10:00 AM EDT Office Visit [facility] at [facility] + [facility] [address] [facility] [address] [place] [address] Sena Dominguez PA [address] [facility] [place] [address] documented as of this encounter Visit Diagnoses Not on filedocumented in this encounter Care Teams Market Development Specialist Relationship Specialty Start Date End Date Meme Steel MD [address] [place] [address] 105 [place] [address] PCP - General Pediatrics 06/05/18 04/25/22 No Pcp, Pcp PCP - General 06/08/22 07/19/22 Guadalupe Mcbride MD PCP - General Family Medicine 07/20/22 11/01/23 Sena Dominguez PA [address] [place] [address] [place] [address] PCP - BRADY Physician Regional Coordinator 11/02/23 Levy Barry MD [address] [place] [address] [place] [address] PCP - General Family Medicine 12/20/23 documented as of this encounter
--- OUTSIDE RECORDS SUMMARY | 2025-07-28 14:37 | XMS_ITS | Encounter Summary ---
Author Organization [facility] work ([facility]) Address [address] [place] [address] Care Team Providers Care Flatwork Folder Name Role Phone Meme Steel MD Primary Care Provider [phone] No Pcp, Pcp Primary Care Provider Unavailabl Guadalupe Bardales MD Primary Care Provider [phone] Sena Dominguez Unavailable [phone] Levy Barry MD Primary Care Provider Unavailab le Source Comments The information that you have received may contain highly confidential and/or federally protected health information. This information has been disclosed to you from records protected by [facility]. The law prohibits you [...] the sender immediately.[facility] ([facility]) Encounter Details Date Type Department Care Team (Late st Contact Info) Description 2004 Historical Note SVMG RMD[employer] System Devyn Vásquez MD [address] [place] [address] [phone] Social History Tobacco Use Types Packs/Day Years [...] - [facility] [address] [facility] [address] [place] [phone] Brenda Clay MD [address] [facility] [address] [place] [address] 04/15/2026 10:00 AM EDT Office Visit [facility] [address] [facility] [address] [place] [address] Sena Dominguez PA [address] [facility] [place] [address] documented as of this encounter Visit Diagnoses Not on filedocumented in this encounter Care Teams Flatwork Folder Relationship Specialty Start Date End Date Meme Steel MD [address] [place] [address] 105 [place] [address] PCP - General Pediatrics 06/05/18 04/25/22 No Pcp, Pcp PCP - General 06/08/22 07/19/22 Guadalupe Mcbride MD PCP - General Family Medicine 07/20/22 11/01/23 Sena Dominguez PA [address] [place] [address] [place] [address] PCP - BRADY Physician Water Resources Technical Officer 11/02/23 Levy Barry MD [address] [place] [address] [place] [address] PCP - General Family Medicine 12/20/23 documented as of this encounter
--- OUTSIDE RECORDS SUMMARY | 2025-07-28 14:37 | XMS_ITS | Encounter Summary ---
Author Organization [facility] work ([facility]) Address [address] [place] [address] Care Team Providers Care Special Education Resource Teacher Name Role Phone Meme Steel MD Primary Care Provider [phone] Pcp, Pcp Primary Care Provider Unavailabl Guadalupe Bardales MD Primary Care Provider [phone] Sena Dominguez Unavailable [phone] Levy Barry MD Primary Care Provider Unavailab le Source Comments The information that you have received may contain highly confidential and/or federally protected health information. This information has been disclosed to you from records protected by [facility]. The law prohibits you [...] error, please contact the sender immediately.[facility] ([facility]) Encounter Details Date Type Department Care Team (Late st Contact Info) Description 2004 Historical Note SVMG BotScanner System Devyn Vásquez MD [address] [place] [address] [id number] Social History Tobacco Use Types Packs/Day Years [...] AM EST Office Visit LEATHA CARRILLO - [facility] [address] [facility] [address] [place] [phone] Brenda Clay MD [address] [facility] [place] [address] [place] [address] 04/15/2026 10:00 AM EDT Office Visit [facility] [address] [facility] [address] [place] [address] Sena Dominguez PA [address] [facility] [place] [address] documented as of this encounter Visit Diagnoses Not on filedocumented in this encounter Care Teams Special Education Resource Teacher Relationship Specialty Start Date End Date Meme Steel MD [address] [place] [address] 105 [place] [address] PCP - General Pediatrics 06/05/18 04/25/22 No Pcp, Pcp PCP - General 06/08/22 07/19/22 Guadalupe Mcbride MD PCP - General Family Medicine 07/20/22 11/01/23 Sena Dominguez PA [address] [place] [address] [place] [address] PCP - BRADY Physician It Service Manager 11/02/23 Levy Barry MD [address] [place] [address] [place] [address] PCP - General Family Medicine 12/20/23 documented as of this encounter
--- OUTSIDE RECORDS SUMMARY | 2025-07-28 14:37 | XMS_ITS | Encounter Summary ---
Author Organization [facility] work ([facility]) Address [address] [place] [address] Care Team Providers Care Bundler Name Role Phone Meme Steel MD Primary Care Provider [phone] Pcp, Pcp Primary Care Provider Unavailabl Guadalupe Bardales MD Primary Care Provider [phone] Sena Dominguez Unavailable [phone] Levy Barry MD Primary Care Provider Unavailab le Source Comments The information that you have received may contain highly confidential and/or federally protected health information. This information has been disclosed to you from records protected by [facility]. The law prohibits you [...] sender immediately.[facility] ([facility]) Encounter Details Date Type Department Care Team (Late st Contact Info) Description 01/26/2006 Historical Note SVMG impok System Devyn Vásquez MD [address] [place] [address] [phone] Social History Tobacco Use Types Packs/Day Years [...] Visit LEATHA CARRILLO - [facility] [address] [facility] [address] [place] [phone] Brenda Clay MD [address] [facility] [place] [address] [place] [address] 04/15/2026 10:00 AM EDT Office Visit [facility] + [facility] [address] [facility] [address] [place] [address] Sena Dominguez PA [address] [facility] [place] [address] documented as of this encounter Visit Diagnoses Not on filedocumented in this encounter Care Teams Bundler Relationship Specialty Start Date End Date Meme Steel MD [address] [place] [address] 105 [place] [address] PCP - General Pediatrics 06/05/18 04/25/22 No Pcp, Pcp PCP - General 06/08/22 07/19/22 Guadalupe Mcbride MD PCP - General Family Medicine 07/20/22 11/01/23 Sena Dominguez PA [address] [place] [address] [place] [address] PCP - BRADY Physician Mine Manager 11/02/23 Levy Barry MD [address] [place] [address] [place] [address] PCP - General Family Medicine 12/20/23 documented as of this encounter
--- OUTSIDE RECORDS SUMMARY | 2025-07-28 14:37 | XMS_ITS | Encounter Summary ---
Author Organization [facility] work ([facility]) Address [address] [place] [address] Care Team Providers Care Stockfeed Miller Name Role Phone Meme Steel MD Primary Care Provider [phone] Pcp, Pcp Primary Care Provider Unavailabl Guadalupe Bardales MD Primary Care Provider [phone] Sena Dominguez Unavailable [phone] Levy Barry MD Primary Care Provider Unavailab le Source Comments The information that you have received may contain highly confidential and/or federally protected health information. This information has been disclosed to you from records protected by [facility]. The law prohibits you [...] please contact the sender immediately.[facility] ([facility]) Encounter Details Date Type Department Care Team (Late st Contact Info) Description 01/26/2006 Historical Note SVMG ZenRobotics System Devyn Vásquez MD [address] [place] [address] [phone] Social History Tobacco Use Types Packs/Day Years [...] Visit LEATHA CARRILLO - [facility] [address] [facility] [address] [place] [phone] Brenda Clay MD [address] [facility] [place] [address] [place] [address] 04/15/2026 10:00 AM EDT Office Visit [facility] at [facility] + [facility] [address] [facility] [address] [place] [address] Sena Dominguez PA [address] [facility] [place] [address] documented as of this encounter Visit Diagnoses Not on filedocumented in this encounter Care Teams Stockfeed Miller Relationship Specialty Start Date End Date Meme Steel MD [address] [place] [address] 105 [place] [address] PCP - General Pediatrics 06/05/18 04/25/22 No Pcp, Pcp PCP - General 06/08/22 07/19/22 Guadalupe Mcbride MD PCP - General Family Medicine 07/20/22 11/01/23 Sena Dominguez PA [address] [place] [address] [place] [address] PCP - BRADY Physician Metal Rolling Mill Operator 11/02/23 Levy Barry MD [address] [place] [address] [place] [address] PCP - General Family Medicine 12/20/23 documented as of this encounter
--- OUTSIDE RECORDS SUMMARY | 2025-07-28 14:37 | XMS_ITS | Encounter Summary ---
Author Organization [facility] work ([facility]) Address [address] [place] [address] Care Team Providers Care Fire Inspector Name Role Phone Meme Steel MD Primary Care Provider [phone] Pcp, Pcp Primary Care Provider Unavailabl Guadalupe Bardales MD Primary Care Provider [phone] Sena Dominguez Unavailable [phone] Levy Barry MD Primary Care Provider Unavailab le Source Comments The information that you have received may contain highly confidential and/or federally protected health information. This information has been disclosed to you from records protected by [facility]. The law prohibits you [...] error, please contact the sender immediately.[facility] ([facility]) Encounter Details Date Type Department Care Team (Late st Contact Info) Description 06/26/2007 Historical Note SVMG Cymax System Devyn Vásquez MD [address] [place] [address] [phone] Social History Tobacco Use Types Packs/Day Years [...] CARRILLO - [facility] [address] [facility] [address] [place] [phone] Brenda Clay MD [address] [facility] [place] [address] [place] [address] 04/15/2026 10:00 AM EDT Office Visit [facility] [address] [facility] [address] [place] [address] Sena Dominguez PA [address] [facility] [place] [address] documented as of this encounter Visit Diagnoses Not on filedocumented in this encounter Care Teams Fire Inspector Relationship Specialty Start Date End Date Meme Steel MD [address] [place] [address] 105 [place] [address] PCP - General Pediatrics 06/05/18 04/25/22 No Pcp, Pcp PCP - General 06/08/22 07/19/22 Guadalupe Mcbride MD PCP - General Family Medicine 07/20/22 11/01/23 Sena Dominguez PA [address] [place] [address] [place] [address] PCP - BRADY Physician Wood Barker 11/02/23 Levy Barry MD [address] [place] [address] [place] [address] PCP - General Family Medicine 12/20/23 documented as of this encounter
--- OUTSIDE RECORDS SUMMARY | 2025-07-28 14:37 | XMS_ITS | Encounter Summary ---
Author Organization [facility] work ([facility]) Address [address] [place] [address] Care Team Providers Care Assistant Loan Processor Name Role Phone Meme Steel MD Primary Care Provider [phone] Pcp, Pcp Primary Care Provider Unavailabl Guadalupe Bardales MD Primary Care Provider [phone] Sena Dominguez Unavailable [phone] Levy Barry MD Primary Care Provider Unavailab le Source Comments The information that you have received may contain highly confidential and/or federally protected health information. This information has been disclosed to you from records protected by [facility]. The law prohibits you [...] contact the sender immediately.[facility] ([facility]) Encounter Details Date Type Department Care Team (Late st Contact Info) Description 2004 Historical Note SVMG OneTwoSee System Devyn Vásquez MD [address] [place] [address] [phone] Social History Tobacco Use Types Packs/Day Years [...] CARRILLO - [facility] [address] [facility] [address] [place] [phone] Brenda Clay MD [address] [facility] [address] [place] [address] 04/15/2026 10:00 AM EDT Office Visit [facility] + [facility] [address] [facility] [address] [place] [address] Sena Dominguez PA [address] [facility] [place] [address] documented as of this encounter Visit Diagnoses Not on filedocumented in this encounter Care Teams Assistant Loan Processor Relationship Specialty Start Date End Date Meme Steel MD [address] [place] [address] 105 [place] [address] PCP - General Pediatrics 06/05/18 04/25/22 No Pcp, Pcp PCP - General 06/08/22 07/19/22 Guadalupe Mcbride MD PCP - General Family Medicine 07/20/22 11/01/23 Sena Dominguez PA [address] [place] [address] [place] [address] PCP - BRADY Physician Funeral Arrangement Director 11/02/23 Levy Baryr MD [address] [place] [address] [place] [address] PCP - General Family Medicine 12/20/23 documented as of this encounter
--- OUTSIDE RECORDS SUMMARY | 2025-07-28 14:37 | XMS_ITS | Encounter Summary ---
Author Organization [facility] work ([facility]) Address [address] [place] [address] Care Team Providers Care Paring Machine Operator Name Role Phone Meme Steel MD Primary Care Provider [phone] Pcp, Pcp Primary Care Provider Unavailabl Guadalupe Bardales MD Primary Care Provider [phone] Sena Dominguez Unavailable [phone] Levy Barry MD Primary Care Provider Unavailab le Source Comments The information that you have received may contain highly confidential and/or federally protected health information. This information has been disclosed to you from records protected by [facility]. The law prohibits you from [...] contact the sender immediately.[facility] ([facility]) Encounter Details Date Type Department Care Team (Late st Contact Info) Description 05/24/2012 Historical Note SVMG Cognea System Devyn Vásquez MD [address] [place] [address] [phone] Social History Tobacco Use Types Packs/Day Years [...] LEATHA CARRILLO - [facility] [address] [facility] [address] [place] [phone] Brenda Clay MD [address] [facility] [address] [place] [address] 04/15/2026 10:00 AM EDT Office Visit [facility] + [facility] [address] [facility] [address] [place] [address] Sena Dominguez PA [address] [facility] [place] [address] documented as of this encounter Visit Diagnoses Not on filedocumented in this encounter Care Teams Paring Machine Operator Relationship Specialty Start Date End Date Meme Steel MD [address] [place] [address] 105 [place] [address] PCP - General Pediatrics 06/05/18 04/25/22 No Pcp, Pcp PCP - General 06/08/22 07/19/22 Guadalupe Mcbride MD PCP - General Family Medicine 07/20/22 11/01/23 Sena Dominguez PA [address] [place] [address] [place] [address] PCP - BRADY Physician Confectionery Cooker 11/02/23 Levy Barry MD [address] [place] [address] [place] [address] PCP - General Family Medicine 12/20/23 documented as of this encounter
--- OUTSIDE RECORDS SUMMARY | 2025-07-28 14:37 | XMS_ITS | Encounter Summary ---
Author Organization [facility] work ([facility] Address [address] [place] [address] Care Team Providers Care Pneumatic Riveter Name Role Phone Meme Steel MD Primary Care Provider [phone] Pcp, Pcp Primary Care Provider Unavailabl Guadalupe Bardales MD Primary Care Provider [phone] Sena Dominguez Unavailable [phone] Levy Barry MD Primary Care Provider Unavailab le Source Comments The information that you have received may contain highly confidential and/or federally protected health information. This information has been disclosed to you from records protected by [facility]. The law prohibits [...] error, please contact the sender immediately.[facility] ([facility] Encounter Details Date Type Department Care Team (Late st Contact Info) Description 01/24/2006 Historical Note SVMG NICO System Devyn Vásquez MD [address] [place] [address] [phone] Social History Tobacco Use Types Packs/Day Years [...] LEATHA CARRILLO - [facility] [address] [facility] [address] [place] [phone] Brenda Clay MD [address] [facility] [place] [address] [place] [address] 04/15/2026 10:00 AM EDT Office Visit [facility] at [facility] + [facility] [address] [facility] [address] [place] [address] Sena Dominguez PA [address] [facility] [place] [address] documented as of this encounter Visit Diagnoses Not on filedocumented in this encounter Care Teams Pneumatic Riveter Relationship Specialty Start Date End Date Meme Steel MD [address] [place] [address] 105 [place] [address] PCP - General Pediatrics 06/05/18 04/25/22 No Pcp, Pcp PCP - General 06/08/22 07/19/22 Guadalupe Mcbride MD PCP - General Family Medicine 07/20/22 11/01/23 Sena Dominguez PA [address] [place] [address] [place] [address] PCP - BRADY Physician Trust Vault Custodian 11/02/23 Levy Barry MD [address] [place] [address] [place] [address] PCP - General Family Medicine 12/20/23 documented as of this encounter
--- OUTSIDE RECORDS SUMMARY | 2025-07-28 14:37 | XMS_ITS | Encounter Summary ---
Author Organization [facility] work ([facility]) Address [address] [place] [address] Care Team Providers Care Hog Sawyer Name Role Phone Meme Steel MD Primary Care Provider No Pcp, Pcp Primary Care Provider Unavailabl Guadalupe Bardales MD Primary Care Provider [phone] Sena Dominguez Unavailable [phone] Levy Barry MD Primary Care Provider Unavailab le Source Comments The information that you have received may contain highly confidential and/or federally protected health information. This information has been disclosed to you from records protected by [email or web address]. The law prohibits you from [...] please contact the sender immediately.[facility] ([facility]) Encounter Details Date Type Department Care Team (Late st Contact Info) Description 2004 Historical Note SVMG Scopix System Devyn Vásquez MD [address] [place] [address] [phone] Social History Tobacco Use Types Packs/Day Years [...] CARRILLO - [facility] [address] [facility] [address] [place] [phone] Brenda Clay MD [address] [facility] [place] [address] [place] [address] 04/15/2026 10:00 AM EDT Office Visit [facility] at [facility] + [facility] [address] [facility] [address] [place] [address] Sena Dominguez PA [address] [facility] [place] [address] documented as of this encounter Visit Diagnoses Not on filedocumented in this encounter Care Teams Hog Sawyer Relationship Specialty Start Date End Date Meme Steel MD [address] [place] [address] 105 [place] [address] PCP - General Pediatrics 06/05/18 04/25/22 No Pcp, Pcp PCP - General 06/08/22 07/19/22 Guadalupe Mcbride MD PCP - General Family Medicine 07/20/22 11/01/23 Sena Dominguez PA [address] [place] [address] [place] [address] PCP - BRADY Physician White Washer Piler 11/02/23 Levy Barry MD [address] [place] [address] [place] [address] PCP - General Family Medicine 12/20/23 documented as of this encounter
--- OUTSIDE RECORDS SUMMARY | 2025-07-28 14:37 | XMS_ITS | Encounter Summary ---
Author Organization [facility] work ([facility]) Address [address] [place] [address] Care Team Providers Care Learning Center Instructor Name Role Phone Meme Steel MD Primary Care Provider [phone] Pcp, Pcp Primary Care Provider Unavailabl Guadalupe Bardales MD Primary Care Provider [phone] Sena Dominguez Unavailable [phone] Levy Barry MD Primary Care Provider Unavailab le Source Comments The information that you have received may contain highly confidential and/or federally protected health information. This information has been disclosed to you from records protected by [facility]. The law prohibits you from making [...] please contact the sender immediately.[facility] ([facility]) Encounter Details Date Type Department Care Team (Late st Contact Info) Description 05/22/2012 Historical Note SVMG CNEX LABS System Devyn Vásquez MD [address] [place] [address] [phone] Social History Tobacco Use Types Packs/Day Years [...] CARRILLO - [facility] [address] [facility] [address] [place] [phone] Brenda Clay MD [address] [facility] [address] [place] [address] 04/15/2026 10:00 AM EDT Office Visit [facility] + [facility] [address] [facility] [address] [place] [address] Sena Dominguez PA [address] [facility] [place] [address] documented as of this encounter Visit Diagnoses Not on filedocumented in this encounter Care Teams Learning Center Instructor Relationship Specialty Start Date End Date Meme Steel MD [address] [place] [address] 105 [place] [address] PCP - General Pediatrics 06/05/18 04/25/22 No Pcp, Pcp PCP - General 06/08/22 07/19/22 Guadalupe Mcbride MD PCP - General Family Medicine 07/20/22 11/01/23 Sena Dominguez PA [address] [place] [address] [place] [address] PCP - BRADY Physician Car Head Liner Installer 11/02/23 Levy Barry MD [address] [place] [address] [place] [address] PCP - General Family Medicine 12/20/23 documented as of this encounter
--- OUTSIDE RECORDS SUMMARY | 2025-07-28 14:37 | XMS_ITS | Encounter Summary ---
Author Organization [facility] work ([facility]) Address [address] [facility] [address] [place] [address] Care Team Providers Care Administrative Services Manager Name Role Phone Meme Steel MD Primary Care Provider [phone] No Pcp, Pcp Primary Care Provider Unavailabl Guadalupe Bardales MD Primary Care Provider [phone] Sena Dominguez Unavailable [phone] Levy Barry MD Primary Care Provider Unavailab le Source Comments The information that you have received may contain highly confidential and/or federally protected health information. This information has been disclosed to you from records protected by [facility]. The law prohibits you [...] contact the sender immediately.[facility] ([facility]) Encounter Details Date Type Department Care Team (Late st Contact Info) Description 11/14/2006 Historical Note SVMG 3X Systems System Devyn Vásquez MD [address] [place] [address] [phone] Social History Tobacco Use Types Packs/Day Years [...] CARRILLO - [facility] [address] [facility] [address] [place] [phone] Brenda Clay MD [address] [facility] [address] [place] [address] 04/15/2026 10:00 AM EDT Office Visit [facility] + [facility] [address] [facility] [address] [place] [address] Sena Dominguez PA [address] [facility] [place] [address] documented as of this encounter Visit Diagnoses Not on filedocumented in this encounter Care Teams Administrative Services Manager Relationship Specialty Start Date End Date Meme Steel MD [address] [place] [address] 105 [place] [address] PCP - General Pediatrics 06/05/18 04/25/22 No Pcp, Pcp PCP - General 06/08/22 07/19/22 Guadalupe Mcbride MD PCP - General Family Medicine 07/20/22 11/01/23 Sena Dominguez PA [address] [place] [address] [place] [address] PCP - BRADY Physician Professor Of Languages 11/02/23 Levy Barry MD [address] [place] [address] [place] [address] PCP - General Family Medicine 12/20/23 documented as of this encounter
--- OUTSIDE RECORDS SUMMARY | 2025-07-28 14:37 | XMS_ITS | Encounter Summary ---
Author Organization [facility] work ([facility]) Address [address] [place] [address] Care Team Providers Care Machine Gunner Name Role Phone Meme Steel MD Primary Care Provider [phone] Pcp, Pcp Primary Care Provider Unavailabl Guadalupe Bardales MD Primary Care Provider [phone] Sena Dominguez Unavailable [phone] Levy Barry MD Primary Care Provider Unavailab le Source Comments The information that you have received may contain highly confidential and/or federally protected health information. This information has been disclosed to you from records protected by [facility]. The law prohibits you [...] information in error, please contact the sender immediately.[facility] ([facility]) Encounter Details Date Type Department Care Team (Late st Contact Info) Description 11/09/2006 Historical Note SVMG Triptelligent System Devyn Vásquez MD [address] [place] [address] [phone] Social History Tobacco Use Types Packs/Day Years [...] CARRILLO - [facility] [address] [facility] [address] [place] [phone] Brenda Clay MD [address] [facility] [address] [place] [address] 04/15/2026 10:00 AM EDT Office Visit [facility] at [facility] + [facility] [address] [facility] [address] [place] [address] Sena Dominguez PA [address] [facility] [place] [address] documented as of this encounter Visit Diagnoses Not on filedocumented in this encounter Care Teams Machine Gunner Relationship Specialty Start Date End Date Meme Steel MD [address] [place] [address] [place] [address] PCP - General Pediatrics 06/05/18 04/25/22 No Pcp, Pcp PCP - General 06/08/22 07/19/22 Guadalupe Mcbride MD PCP - General Family Medicine 07/20/22 11/01/23 Sena Dominguez PA [address] [place] [address] [place] [address] PCP - BRADY Physician Lap Cutter Truer Operator 11/02/23 Levy Barry MD [address] [place] [address] [place] [address] PCP - General Family Medicine 12/20/23 documented as of this encounter
--- OUTSIDE RECORDS SUMMARY | 2025-07-28 14:37 | XMS_ITS | Encounter Summary ---
Author Organization [facility] work ([facility]) Address [address] [place] [address] Care Team Providers Care Principal Embedded Software Engineer Name Role Phone Meme Steel MD Primary Care Provider [phone] Pcp, Pcp Primary Care Provider Unavailabl Guadalupe Bardales MD Primary Care Provider [phone] Sena Dominguez Unavailable Levy Barry MD Primary Care Provider Unavailab le Source Comments The information that you have received may contain highly confidential and/or federally protected health information. This information has been disclosed to you from records protected by [facility]. The law prohibits you from [...] sender immediately.[facility] ([facility]) Encounter Details Date Type Department Care Team (Late st Contact Info) Description 05/29/2006 Historical Note SVMG ClubLocal System Devyn Vásquez MD [address] [place] [address] [phone] Social History Tobacco Use Types Packs/Day Years [...] LEATHA CARRILLO - [facility] [address] [facility] [address] [place] [phone] Brenda Clay MD [address] [facility] [address] [place] [address] 04/15/2026 10:00 AM EDT Office Visit [facility] [address] [facility] [address] [place] [address] Sena Dominguez PA [address] [facility] [place] [address] documented as of this encounter Visit Diagnoses Not on filedocumented in this encounter Care Teams Principal Embedded Software Engineer Relationship Specialty Start Date End Date Meme Steel MD [address] [place] [address] 105 [place] [address] PCP - General Pediatrics 06/05/18 04/25/22 No Pcp, Pcp PCP - General 06/08/22 07/19/22 Guadalupe Mcbride MD PCP - General Family Medicine 07/20/22 11/01/23 Sena Dominguez PA [address] [place] [address] [place] [address] PCP - BRADY Physician Visually Impaired Teacher 11/02/23 Levy Barry MD [address] [place] [address] [place] [address] PCP - General Family Medicine 12/20/23 documented as of this encounter
--- OUTSIDE RECORDS SUMMARY | 2025-07-28 14:37 | XMS_ITS | Encounter Summary ---
Author Organization [facility] work ([facility]) Address [address] [place] [address] Care Team Providers Care Site Acquisition Manager Name Role Phone Meme Steel MD Primary Care Provider [phone] Pcp, Pcp Primary Care Provider Unavailabl Guadalupe Bardales MD Primary Care Provider [phone] Sena Dominguez Unavailable [phone] Levy Barry MD Primary Care Provider Unavailab le Source Comments The information that you have received may contain highly confidential and/or federally protected health information. This information has been disclosed to you from records protected by [facility]. The law prohibits you [...] information in error, please contact the sender immediately.[facility] ([facility]) Encounter Details Date Type Department Care Team (Late st Contact Info) Description 2004 Historical Note SVMG Hermes IQ System Devyn Vásquez MD [address] [place] [address] [phone] Social History Tobacco Use Types Packs/Day Years [...] LEATHA CARRILLO - [facility] [address] [facility] [address] [place] [phone] Brenda Clay MD [address] [facility] [address] [place] [address] 04/15/2026 10:00 AM EDT Office Visit [facility]HA [facility] at [facility] + [facility] [address] [facility] [address] [place] [address] Sena Dominguez PA [address] [facility] [place] [address] documented as of this encounter Visit Diagnoses Not on filedocumented in this encounter Care Teams Site Acquisition Manager Relationship Specialty Start Date End Date Meme Steel MD [address] [place] [address] 105 [place] [address] PCP - General Pediatrics 06/05/18 04/25/22 No Pcp, Pcp PCP - General 06/08/22 07/19/22 Guadalupe Mcbride MD PCP - General Family Medicine 07/20/22 11/01/23 Sena Dominguez PA [address] [place] [address] [place] [address] PCP - BRADY Physician Floater Operator 11/02/23 Levy Barry MD [address] [place] [address] [place] [address] PCP - General Family Medicine 12/20/23 documented as of this encounter
--- OUTSIDE RECORDS SUMMARY | 2025-07-28 14:37 | XMS_ITS | Encounter Summary ---
Author Organization [facility] work ([facility]) Address [address] [place] [address] Care Team Providers Care Wire Photo Operator News Name Role Phone Meme Steel MD Primary Care Provider [phone] Pcp, Pcp Primary Care Provider Unavailabl Guadalupe Bardales MD Primary Care Provider [phone] Sena Dominguez Unavailable [phone] Levy Barry MD Primary Care Provider Unavailab le Source Comments The information that you have received may contain highly confidential and/or federally protected health information. This information has been disclosed to you from records protected by [facility]. The law prohibits you from [...] the sender immediately.[facility] ([facility]) Encounter Details Date Type Department Care Team (Late st Contact Info) Description 2004 Historical Note SVMG Dragon Inside System Devyn Vásquez MD [address] [place] [address] [phone] Social History Tobacco Use Types Packs/Day Years [...] LEATHA CARRILLO - [facility] [address] [facility] [address] [place] [phone] Brenda Clay MD [address] [facility] [address] [place] [address] 04/15/2026 10:00 AM EDT Office Visit [facility]HA [facility] at [facility] [address] [facility] [address] [place] [address] Sena Dominguez PA [address] [facility] [place] [address] documented as of this encounter Visit Diagnoses Not on filedocumented in this encounter Care Teams Wire Photo Operator News Relationship Specialty Start Date End Date Meme Steel MD [address] [place] [address] 105 [place] [address] PCP - General Pediatrics 06/05/18 04/25/22 No Pcp, Pcp PCP - General 06/08/22 07/19/22 Guadalupe Mcbride MD PCP - General Family Medicine 07/20/22 11/01/23 Sena Dominguez PA [address] [place] [address] [place] [address] PCP - BRADY Physician Bus Assistant 11/02/23 Levy Barry MD [address] [place] [address] [place] [address] PCP - General Family Medicine 12/20/23 documented as of this encounter
--- OUTSIDE RECORDS SUMMARY | 2025-07-28 14:37 | XMS_ITS | Encounter Summary ---
Author Organization [facility] work ([facility]) Address [address] [place] [address] Care Team Providers Care Lotus Notes Administrator Name Role Phone Meme Steel MD Primary Care Provider [phone] Pcp, Pcp Primary Care Provider Unavailabl Guadalupe Bardales MD Primary Care Provider [phone] Sena Dominguez Unavailable [phone] Levy Barry MD Primary Care Provider Unavailab le Source Comments The information that you have received may contain highly confidential and/or federally protected health information. This information has been disclosed to you from records protected by [facility]. The law prohibits you from making [...] in error, please contact the sender immediately.[facility] ([facility]) Encounter Details Date Type Department Care Team (Late st Contact Info) Description 06/14/2007 Historical Note SVMG Quality Solicitors System Devyn Vásquez MD [address] [place] [address] [phone] Social History Tobacco Use Types Packs/Day Years [...] LEATHA CARRILLO - [facility] [address] [facility] [facility] [address] [place] [phone] Brenda Clay MD [address] [facility] [address] [place] [address] 04/15/2026 10:00 AM EDT Office Visit [facility] [address] [facility] [address] [place] [address] Sena Dominguez PA [address] [facility] [place] [address] documented as of this encounter Visit Diagnoses Not on filedocumented in this encounter Care Teams Lotus Notes Administrator Relationship Specialty Start Date End Date Meme Steel MD [address] [place] [address] 105 [place] [address] PCP - General Pediatrics 06/05/18 04/25/22 No Pcp, Pcp PCP - General 06/08/22 07/19/22 Guadalupe Mcbride MD PCP - General Family Medicine 07/20/22 11/01/23 Sena Dominguez PA [address] [place] [address] [place] [address] PCP - BRADY Physician Intermediate School Teacher 11/02/23 Levy Barry MD [address] [place] [address] [place] [address] PCP - General Family Medicine 12/20/23 documented as of this encounter
--- OUTSIDE RECORDS SUMMARY | 2025-07-28 14:37 | XMS_ITS | Encounter Summary ---
Author Organization [facility] work ([facility]) Address [address] [place] [address] Care Team Providers Care Logistics Vice President Name Role Phone Meme Steel MD Primary Care Provider [phone] Pcp, Pcp Primary Care Provider Unavailabl Guadalupe Bardales MD Primary Care Provider [phone] Sena Dominguez Unavailable [phone] Levy Barry MD Primary Care Provider Unavailab le Source Comments The information that you have received may contain highly confidential and/or federally protected health information. This information has been disclosed to you from records protected by [facility]. The law prohibits you [...] sender immediately.[facility] ([facility]) Encounter Details Date Type Department Care Team (Late st Contact Info) Description 05/29/2006 Historical Note SVMG Casacanda System Devyn Vásquez MD [address] [place] [phone] Social History Tobacco Use Types Packs/Day Years [...] Visit LEATHA CARRILLO - [facility] [address] [facility] [address] [place] [phone] Brenda Clay MD [address] [facility] [address] [place] [address] 04/15/2026 10:00 AM EDT Office Visit LEATHA [facility] at [facility] [address] [facility] [address] [place] [address] Sena Dominguez PA [address] [facility] [place] [address] documented as of this encounter Visit Diagnoses Not on filedocumented in this encounter Care Teams Logistics Vice President Relationship Specialty Start Date End Date Meme Steel MD [address] [place] [address] 105 [place] [address] PCP - General Pediatrics 06/05/18 04/25/22 No Pcp, Pcp PCP - General 06/08/22 07/19/22 Guadalupe Mcbride MD PCP - General Family Medicine 07/20/22 11/01/23 Sena Dominguez PA [address] [place] [address] [place] [address] PCP - BRADY Physician Rug Setter [place] 11/02/23 Levy Barry MD [address] [place] [address] [place] [address] PCP - General Family Medicine 12/20/23 documented as of this encounter
--- OUTSIDE RECORDS SUMMARY | 2025-07-28 14:37 | XMS_ITS | Encounter Summary ---
Author Organization [facility] work ([facility]) Address [address] [place] [address] Care Team Providers Care Geosciences Associate Professor Name Role Phone Meme Steel MD Primary Care Provider [phone] No Pcp, Pcp Primary Care Provider Unavailabl Guadalupe Bardales MD Primary Care Provider [phone] Sena Dominguez Unavailable [phone] Levy Barry MD Primary Care Provider Unavailab le Source Comments The information that you have received may contain highly confidential and/or federally protected health information. This information has been disclosed to you from records protected by [facility]. The law prohibits you from [...] information in error, please contact the sender immediately.[facility] ([facility]) Encounter Details Date Type Department Care Team (Late st Contact Info) Description 03/11/2007 Historical Note SVMG Elevation [employer] System Devyn Vásquez MD [address] [place] [address] [phone] Social History Tobacco Use Types Packs/Day Years [...] [facility] [address] [facility] [address] [place] [phone] Brenda Clay MD [address] [facility] [address] [place] [address] 04/15/2026 10:00 AM EDT Office Visit LEATHA [facility] at [facility] + [facility] [address] [facility] [address] [place] [address] Sena Dominguez PA [address] [facility] [place] [address] documented as of this encounter Visit Diagnoses Not on filedocumented in this encounter Care Teams Geosciences Associate Professor Relationship Specialty Start Date End Date Meme Steel MD [address] [place] [address] 105 [place] [address] PCP - General Pediatrics 06/05/18 04/25/22 No Pcp, Pcp PCP - General 06/08/22 07/19/22 Guadalupe Mcbride MD PCP - General Family Medicine 07/20/22 11/01/23 Sena Dominguez PA [address] [place] [address] [place] [address] PCP - BRADY Physician Pallet Stone Positioner 11/02/23 Levy Barry MD [address] [place] [address] [place] [address] PCP - General Family Medicine 12/20/23 documented as of this encounter
--- OUTSIDE RECORDS SUMMARY | 2025-07-28 14:37 | XMS_ITS | Encounter Summary ---
Author Organization [facility] work ([facility]) Address [address] [place] [address] Care Team Providers Care Lap Regulator Name Role Phone Meme Steel MD Primary Care Provider No Pcp, Pcp Primary Care Provider Unavailabl Guadalupe Bardales MD Primary Care Provider [phone] Sena Dominguez Unavailable [phone] Levy Barry MD Primary Care Provider Unavailab le Source Comments The information that you have received may contain highly confidential and/or federally protected health information. This information has been disclosed to you from records protected by [facility]. The law prohibits you from making [...] the sender immediately.[facility] ([facility]) Encounter Details Date Type Department Care Team (Late st Contact Info) Description 2004 Historical Note SVMG [employer]on [employer] System Devyn Vásquez MD [address] [place] [phone] Social History Tobacco Use Types Packs/Day Years [...] LEATHA CARRILLO - [facility] [address] [facility] [address] [place] [phone] Brenda Clay MD [address] [facility] [address] [place] [address] 04/15/2026 10:00 AM EDT Office Visit LEATHA Primary Care at [facility] + [facility] [address] [facility] [address] [place] [address] Sena Dominguez PA [address] [facility] [place] [address] documented as of this encounter Visit Diagnoses Not on filedocumented in this encounter Care Teams Lap Regulator Relationship Specialty Start Date End Date Meme Steel MD [address] [place] [address] 105 [place] [address] PCP - General Pediatrics 06/05/18 04/25/22 No Pcp, Pcp PCP - General 06/08/22 07/19/22 Guadalupe Mcbride MD PCP - General Family Medicine 07/20/22 11/01/23 Sena Dominguez PA [address] [place] [address] [place] [address] PCP - BRADY Physician Traditional Maori Health Practitioner 11/02/23 Levy Barry MD [address] [place] [address] [place] [address] PCP - General Family Medicine 12/20/23 documented as of this encounter
--- OUTSIDE RECORDS SUMMARY | 2025-07-28 14:37 | XMS_ITS | Encounter Summary ---
Author Organization [facility] work ([facility]) Address [address] [place] [address] Care Team Providers Care Emergency Care Attendant Name Role Phone Meme Steel MD Primary Care Provider [phone] No Pcp, Pcp Primary Care Provider Unavailabl Guadalupe Bardales MD Primary Care Provider [phone] Sena Dominguez Unavailable [phone] Levy Barry MD Primary Care Provider Unavailab le Source Comments The information that you have received may contain highly confidential and/or federally protected health information. This information has been disclosed to you from records protected by [facility]. The law prohibits you [...] please contact the sender immediately.[facility] ([facility]) Encounter Details Date Type Department Care Team (Late st Contact Info) Description 01/23/2006 Historical Note SVMG Brickell [employer] System Devyn Vásquez MD [address] [place] [address] [phone] Social History Tobacco Use Types Packs/Day Years [...] Visit LEATHA CARRILLO - [facility] [address] [facility] [address] [place] [phone] Brenda Clay MD [address] [facility] [address] [place] [address] 04/15/2026 10:00 AM EDT Office Visit LEATHA [facility] at [facility] [address] [facility] [address] [place] [address] Sena Dominguez PA [address] [facility] [place] [address] documented as of this encounter Visit Diagnoses Not on filedocumented in this encounter Care Teams Emergency Care Attendant Relationship Specialty Start Date End Date Meme Steel MD [address] [place] [address] 105 [place] [address] PCP - General Pediatrics 06/05/18 04/25/22 No Pcp, Pcp PCP - General 06/08/22 07/19/22 Guadalupe Mcbride MD PCP - General Family Medicine 07/20/22 11/01/23 Sena Dominguez PA [address] [place] [address] [place] [address] PCP - BRADY Physician Peanut Vendor 11/02/23 Levy Barry MD [address] [place] [address] [place] [address] PCP - General Family Medicine 12/20/23 documented as of this encounter
--- OUTSIDE RECORDS SUMMARY | 2025-07-28 14:37 | XMS_ITS | Encounter Summary ---
Author Organization [facility] work ([facility]) Address [address] [facility] [address] [address] [place] [address] Care Team Providers Care Forklift Wheel Loader Name Role Phone Meme Steel MD Primary Care Provider [phone] No Pcp, Pcp Primary Care Provider Unavailabl Guadalupe Bardales MD Primary Care Provider [phone] Sena Dominguez Unavailable [phone] Levy Barry MD Primary Care Provider Unavailab le Source Comments The information that you have received may contain highly confidential and/or federally protected health information. This information has been disclosed to you from records protected by [facility]. The law prohibits you [...] please contact the sender immediately.[facility] ([facility]) Encounter Details Date Type Department Care Team (Late st Contact Info) Description 11/09/2006 Historical Note SVMG Craft Dragon System Devyn Vásquez MD [address] [place] [address] [phone] Social History Tobacco Use Types Packs/Day Years [...] CARRILLO - [facility] [address] [facility] [address] [place] [phone] Brenda Clay MD [address] [facility] [address] [place] [address] 04/15/2026 10:00 AM EDT Office Visit LEATHA Primary [facility] at [facility] + [facility] [address] [facility] [address] [place] [address] Sena Dominguez PA [address] [facility] [place] [address] documented as of this encounter Visit Diagnoses Not on filedocumented in this encounter Care Teams Forklift Wheel Loader Relationship Specialty Start Date End Date Meme Steel MD [address] [place] [address] 105 [place] [address] PCP - General Pediatrics 06/05/18 04/25/22 No Pcp, Pcp PCP - General 06/08/22 07/19/22 Guadalupe Mcbride MD PCP - General Family Medicine 07/20/22 11/01/23 Sena Dominguez PA [address] [place] [address] [place] [address] PCP - BRADY Physician Machine Spreader 11/02/23 Levy Barry MD [address] [place] [address] [place] [address] PCP - General Family Medicine 12/20/23 documented as of this encounter
--- OUTSIDE RECORDS SUMMARY | 2025-07-28 14:37 | XMS_ITS | Encounter Summary ---
Author Organization [facility] work ([facility]) Address [address] [place] [address] Care Team Providers Care Veterinary Hospital Attendant Name Role Phone Meme Steel MD Primary Care Provider [phone] Pcp, Pcp Primary Care Provider Unavailabl Guadalupe Bardales MD Primary Care Provider [phone] Sena Dominguez Unavailable [phone] Levy Barry MD Primary Care Provider Unavailab le Source Comments The information that you have received may contain highly confidential and/or federally protected health information. This information has been disclosed to you from records protected by [facility]. The law prohibits you from [...] contact the sender immediately.[facility] ([facility]) Encounter Details Date Type Department Care Team (Late st Contact Info) Description 2004 Historical Note SVMG Handprint System Devyn Vásquez MD [address] [place] [address] [phone] Social History Tobacco Use Types Packs/Day Years [...] - [facility] [address] [facility] [address] [place] [phone] Brenda Clay MD [address] [facility] [address] [place] [address] 04/15/2026 10:00 AM EDT Office Visit [facility] + [facility] [address] [facility] [address] [place] [address] Sena Dominguez PA [address] [facility] [place] [address] documented as of this encounter Visit Diagnoses Not on filedocumented in this encounter Care Teams Veterinary Hospital Attendant Relationship Specialty Start Date End Date Meme Steel MD [address] [place] [address] [place] [address] PCP - General Pediatrics 06/05/18 04/25/22 No Pcp, Pcp PCP - General 06/08/22 07/19/22 Guadalupe Mcbride MD PCP - General Family Medicine 07/20/22 11/01/23 Sena Dominguez PA [address] [place] [address] [place] [address] PCP - BRADY Physician Press Writer 11/02/23 Levy Barry MD [address] [place] [address] [place] [address] PCP - General Family Medicine 12/20/23 documented as of this encounter
--- OUTSIDE RECORDS SUMMARY | 2025-07-28 14:37 | XMS_ITS | Encounter Summary ---
Author Organization [facility] work ([facility]) Address [address] [place] [address] Care Team Providers Care Instrument Designer Name Role Phone Meme Steel MD Primary Care Provider [phone] Pcp, Pcp Primary Care Provider Unavailabl Guadalupe Bardales MD Primary Care Provider [phone] Sena Dominguez Unavailable [phone] Levy Barry MD Primary Care Provider Unavailab le Source Comments The information that you have received may contain highly confidential and/or federally protected health information. This information has been disclosed to you from records protected by [facility]. The law prohibits you from [...] contact the sender immediately.[facility] ([facility]) Encounter Details Date Type Department Care Team (Late st Contact Info) Description 06/26/2007 Historical Note SVMG [employer] System Devyn Vásquez MD [address] [place] [address] [phone] Social History Tobacco Use Types Packs/Day Years [...] Description 10/10/2025 10:00 AM EST Office Visit LEATAH CARRILLO - [facility] [address] [facility] [address] [place] [phone] Brenda Clay MD [address] [facility] [address] [place] [address] 04/15/2026 10:00 AM EDT Office Visit [facility] at [facility] + [facility] [address] [facility] [address] [place] [address] Sena Dominguez PA [address] [facility] [place] [address] documented as of this encounter Visit Diagnoses Not on filedocumented in this encounter Care Teams Instrument Designer Relationship Specialty Start Date End Date Meme Steel MD [address] [place] [address] 105 [place] [address] PCP - General Pediatrics 06/05/18 04/25/22 No Pcp, Pcp PCP - General 06/08/22 07/19/22 Guadalupe Mcbride MD PCP - General Family Medicine 07/20/22 11/01/23 Sena Dominguez PA [address] [place] [address] [place] [address] PCP - BRADY Physician Textile Engraver 11/02/23 Levy Barry MD [address] [place] [address] [place] [address] PCP - General Family Medicine 12/20/23 documented as of this encounter
--- OUTSIDE RECORDS SUMMARY | 2025-07-28 14:37 | XMS_ITS | Encounter Summary ---
Author Organization [facility] work ([facility]) Address [address] [place] [address] Care Team Providers Care Cpr Instructor Name Role Phone Meme Steel MD Primary Care Provider [phone] Pcp, Pcp Primary Care Provider Unavailabl Guadalupe Bardales MD Primary Care Provider [phone] Sena Dominguez Unavailable [phone] Levy Barry MD Primary Care Provider Unavailab le Source Comments The information that you have received may contain highly confidential and/or federally protected health information. This information has been disclosed to you from records protected by [facility]. The law prohibits you from [...] please contact the sender immediately.[facility] ([facility]) Encounter Details Date Type Department Care Team (Late st Contact Info) Description 2004 Historical Note SVMG [employer] System Devyn Vásquez MD [address] [place] [address] [phone] Social History Tobacco Use Types Packs/Day Years [...] LEATHA CARRILLO - [place] [facility] at [facility] [address] [place] [phone] Brenda Clay MD [address] [facility] [address] [place] [phone] 04/15/2026 10:00 AM EDT Office Visit [facility] at [facility] + [facility] [address] [facility] [facility] [address] [place] [address] Sena Dominguez PA [address] [facility] [place] [address] documented as of this encounter Visit Diagnoses Not on filedocumented in this encounter Care Teams Cpr Instructor Relationship Specialty Start Date End Date Meme Steel MD [address] [place] [address] 105 [place] [address] PCP - General Pediatrics 06/05/18 04/25/22 No Pcp, Pcp PCP - General 06/08/22 07/19/22 Guadalupe Mcbride MD PCP - General Family Medicine 07/20/22 11/01/23 Sena Dominguez PA [address] [place] [address] [place] [address] PCP - BRADY Physician Emergency Medical Services Coordinator 11/02/23 Levy Barry MD [address] [place] [address] [place] [address] PCP - General Family Medicine 12/20/23 documented as of this encounter
--- OUTSIDE RECORDS SUMMARY | 2025-07-28 14:37 | XMS_ITS | Encounter Summary ---
Author Organization [facility] work ([facility]) Address [address] [place] [address] Care Team Providers Care Cashier Self Service Gasoline Name Role Phone Meme Steel MD Primary Care Provider [phone] Pcp, Pcp Primary Care Provider Unavailabl Guadalupe Bardales MD Primary Care Provider [phone] Sena Dominguez Unavailable [phone] Levy Barry MD Primary Care Provider Unavailab le Source Comments The information that you have received may contain highly confidential and/or federally protected health information. This information has been disclosed to you from records protected by [facility]. The law prohibits you from [...] error, please contact the sender immediately.[facility] ([facility]) Encounter Details Date Type Department Care Team (Late st Contact Info) Description 05/24/2012 Historical Note SVMG [employer]ora System Devyn Vásquez MD [address] [place] [address] [phone] Social History Tobacco Use Types Packs/Day Years [...] - [facility] at [facility] [address] [facility] [address] [place] [phone] Brenda Clay MD [address] [facility] [address] [place] [phone] 04/15/2026 10:00 AM EDT Office Visit [facility]HA [facility] at [facility] + [facility] [address] [facility] [address] [place] [address] Sena Dominguez PA [address] [facility] [place] [address] documented as of this encounter Visit Diagnoses Not on filedocumented in this encounter Care Teams Cashier Self Service Gasoline Relationship Specialty Start Date End Date Meme Steel MD [address] [place] [address] 105 [place] [address] PCP - General Pediatrics 06/05/18 04/25/22 No Pcp, Pcp PCP - General 06/08/22 07/19/22 Guadalupe Mcbride MD PCP - General Family Medicine 07/20/22 11/01/23 Sena Dominguez PA [address] [place] [address] [place] [address] PCP - BRADY Physician Automation Test Developer 11/02/23 Levy Barry MD [address] [place] [address] [place] [address] PCP - General Family Medicine 12/20/23 documented as of this encounter
--- OUTSIDE RECORDS SUMMARY | 2025-07-28 14:37 | XMS_ITS | Encounter Summary ---
Author Organization [facility] work ([facility]) Address [address] [place] [address] Care Team Providers Care Energy Efficiency Specialist Name Role Phone Meme Steel MD Primary Care Provider [phone] Pcp, Pcp Primary Care Provider Unavailabl Guadalupe Bardales MD Primary Care Provider [phone] Sena Dominguez Unavailable [phone] Levy Barry MD Primary Care Provider Unavailab le Source Comments The information that you have received may contain highly confidential and/or federally protected health information. This information has been disclosed to you from records protected by [facility]. The law prohibits you [...] please contact the sender immediately.[facility] ([facility]) Encounter Details Date Type Department Care Team (Late st Contact Info) Description 11/14/2006 Historical Note SVMG [employer] System Devyn Vásquez MD [address] [place] [address] [phone] Social History Tobacco Use Types Packs/Day Years [...] CARRILLO - [facility] [address] [facility] [address] [place] [phone] Brenda Clay MD [address] [facility] [address] [place] [address] 04/15/2026 10:00 AM EDT Office Visit [facility] + [facility] [address] [facility] [address] [place] [address] Sena Dominguez PA [address] [facility] [place] [address] documented as of this encounter Visit Diagnoses Not on filedocumented in this encounter Care Teams Energy Efficiency Specialist Relationship Specialty Start Date End Date Meme Steel MD [address] [place] [address] 105 [place] [address] PCP - General Pediatrics 06/05/18 04/25/22 No Pcp, Pcp PCP - General 06/08/22 07/19/22 Guadalupe Mcbride MD PCP - General Family Medicine 07/20/22 11/01/23 Sena Dominguez PA [address] [place] [address] [place] [address] PCP - BRADY Physician Boom Tender 11/02/23 Levy Barry MD [address] [place] [address] [place] [address] PCP - General Family Medicine 12/20/23 documented as of this encounter
--- OUTSIDE RECORDS SUMMARY | 2025-07-28 14:37 | XMS_ITS | Encounter Summary ---
Author Organization [facility] work ([facility]) Address [address] [place] [address] Care Team Providers Care Application Coordinator Name Role Phone Meme Steel MD Primary Care Provider [phone] Pcp, Pcp Primary Care Provider Unavailabl Guadalupe Bardales MD Primary Care Provider [phone] Sena Dominguez Unavailable [phone] Levy Barry MD Primary Care Provider Unavailab le Source Comments The information that you have received may contain highly confidential and/or federally protected health information. This information has been disclosed to you from records protected by [facility]. The law prohibits you from [...] the sender immediately.[facility] ([facility]) Encounter Details Date Type Department Care Team (Late st Contact Info) Description 01/13/2006 Historical Note SVMG [employer] System Devyn Vásquez MD [address] [place] [address] [phone] Social History Tobacco Use Types Packs/Day Years [...] Visit LEATHA CARRILLO - [facility] [address] [facility] [address] [place] [phone] Brenda Clay MD [address] [facility] [address] [place] [address] 04/15/2026 10:00 AM EDT Office Visit [facility]HA [facility] at [facility] + [facility] [address] [facility] [address] [place] [address] Sena Dominguez PA [address] [facility] [place] [address] documented as of this encounter Visit Diagnoses Not on filedocumented in this encounter Care Teams Application Coordinator Relationship Specialty Start Date End Date Meme Steel MD [address] [place] [address] 105 [place] [address] PCP - General Pediatrics 06/05/18 04/25/22 No Pcp, Pcp PCP - General 06/08/22 07/19/22 Guadalupe Mcbride MD PCP - General Family Medicine 07/20/22 11/01/23 Sena Dominguez PA [address] [place] [address] [place] [address] PCP - BRADY Physician Sales Service Professional 11/02/23 Levy Barry MD [address] [place] [address] [place] [address] PCP - General Family Medicine 12/20/23 documented as of this encounter
--- OUTSIDE RECORDS SUMMARY | 2025-07-28 14:37 | XMS_ITS | Encounter Summary ---
Author Organization [facility] work ([facility]) Address [address] [place] [address] Care Team Providers Care Storage Wharfage Clerk Name Role Phone Meme Steel MD Primary Care Provider [phone] Pcp, Pcp Primary Care Provider Unavailabl Guadalupe Bardales MD Primary Care Provider [phone] Sena Dominguez Unavailable [phone] Levy Barry MD Primary Care Provider Unavailab le Source Comments The information that you have received may contain highly confidential and/or federally protected health information. This information has been disclosed to you from records protected by [facility]. The law prohibits you from making [...] the sender immediately.[facility] ([facility]) Encounter Details Date Type Department Care Team (Late st Contact Info) Description 06/14/2007 Historical Note SVMG Trefis System Devyn Vásquez MD [address] [place] [address] [phone] Social History Tobacco Use Types Packs/Day Years [...] AM EST Office Visit LEATHA CARIRLLO - [facility] [address] [facility] [address] [place] [phone] Brenda Clay MD [address] [facility] [address] [place] [address] 04/15/2026 10:00 AM EDT Office Visit [facility] at [facility] + [facility] [address] [facility] [address] [place] [address] Sena Dominguez PA [address] [facility] [place] [address] documented as of this encounter Visit Diagnoses Not on filedocumented in this encounter Care Teams Storage Wharfage Clerk Relationship Specialty Start Date End Date Meme Steel MD [address] [place] [address] 105 [place] [address] PCP - General Pediatrics 06/05/18 04/25/22 No Pcp, Pcp PCP - General 06/08/22 07/19/22 Guadalupe Mcbride MD PCP - General Family Medicine 07/20/22 11/01/23 Sena Dominguez PA [address] [place] [address] [place] [address] PCP - BRADY Physician Bookmaker Map 11/02/23 Levy Barry MD [address] [place] [address] [place] [address] PCP - General Family Medicine 12/20/23 documented as of this encounter
--- OUTSIDE RECORDS SUMMARY | 2025-07-28 14:37 | XMS_ITS | Encounter Summary ---
Author Organization [facility] work ([facility]) Address [address] [place] [address] Care Team Providers Care Order Desk Caller Name Role Phone Meme Steel MD Primary Care Provider No Pcp, Pcp Primary Care Provider Unavailabl Guadalupe Bardales MD Primary Care Provider [phone] Sena Dominguez Unavailable [phone] Levy Barry MD Primary Care Provider Unavailab le Source Comments The information that you have received may contain highly confidential and/or federally protected health information. This information has been disclosed to you from records protected by [facility] [facility]. The law prohibits you [...] error, please contact the sender immediately.[facility] ([facility]) Encounter Details Date Type Department Care Team (Late st Contact Info) Description 2004 Historical Note SVMG [employer] System Devyn Vásquez MD [address] [place] [address] [phone] Social History Tobacco Use Types Packs/Day Years [...] - [facility] [address] [facility] [address] [place] [phone] Brenda Clay MD [address] [facility] [address] [place] [address] 04/15/2026 10:00 AM EDT Office Visit LE[facility]HA [facility] at [facility] + [facility] [address] [facility] [address] [place] [address] Sena Dominguez PA [address] [facility] [place] [address] documented as of this encounter Visit Diagnoses Not on filedocumented in this encounter Care Teams Order Desk Caller Relationship Specialty Start Date End Date Meme Steel MD [address] [place] [address] 105 [place] [address] PCP - General Pediatrics 06/05/18 04/25/22 No Pcp, Pcp PCP - General 06/08/22 07/19/22 Guadalupe Mcbride MD PCP - General Family Medicine 07/20/22 11/01/23 Sena Dominguez PA [address] [place] [address] [place] [address] PCP - BRADY Physician Food Clerk 11/02/23 Levy Barry MD [address] [place] [address] [place] [address] PCP - General Family Medicine 12/20/23 documented as of this encounter
--- OUTSIDE RECORDS SUMMARY | 2025-07-28 14:37 | XMS_ITS | Encounter Summary ---
Author Organization [facility] work ([facility]) Address [address] [place] [address] Care Team Providers Care Brick Kiln Burner Name Role Phone Meme Steel MD Primary Care Provider [phone] Pcp, Pcp Primary Care Provider Unavailabl Guadalupe Bardales MD Primary Care Provider [phone] Sena Dominguez Unavailable [phone] Levy Barry MD Primary Care Provider Unavailab le Source Comments The information that you have received may contain highly confidential and/or federally protected health information. This information has been disclosed to you from records protected by [employer] [facility]. The law prohibits you [...] error, please contact the sender immediately[facility] ([facility]) Encounter Details Date Type Department Care Team (Late st Contact Info) Description 01/24/2006 Historical Note SVMG [employer] System Devyn Vásquez MD [address] [place] [address] [phone] Social History Tobacco Use Types Packs/Day Years [...] LEATHA CARRILLO - [facility] [address] [facility] [address] [place] [phone] Brenda Clay MD [address] [facility] [address] [place] [address] 04/15/2026 10:00 AM EDT Office Visit [facility]HA [facility] at [facility] + [facility] [address] [facility] [address] [place] [address] Sena Dominguez PA [address] [facility] [place] [address] documented as of this encounter Visit Diagnoses Not on filedocumented in this encounter Care Teams Brick Kiln Burner Relationship Specialty Start Date End Date Meme Steel MD [address] [place] [address] 105 [place] [address] PCP - General Pediatrics 06/05/18 04/25/22 No Pcp, Pcp PCP - General 06/08/22 07/19/22 Guadalupe Mcbride MD PCP - General Family Medicine 07/20/22 11/01/23 Sena Dominguez PA [address] [place] [address] [place] [address] PCP - BRADY Physician Food Storeroom Clerk 11/02/23 Levy Barry MD [address] [place] [address] [place] [address] PCP - General Family Medicine 12/20/23 documented as of this encounter
--- OUTSIDE RECORDS SUMMARY | 2025-07-28 14:38 | XMS_ITS | Encounter Summary ---
Author Organization [facility] work ([facility]) Address [address] [place] [address] Care Team Providers Care Warp Knitter Helper Name Role Phone Meme Steel MD Primary Care Provider [phone] Pcp, Pcp Primary Care Provider Unavailabl Guadalupe Bardales MD Primary Care Provider [phone] Sena Dominguez Unavailable [phone] Levy Barry MD Primary Care Provider Unavailab le Source Comments The information that you have received may contain highly confidential and/or federally protected health information. This information has been disclosed to you from records protected by [facility]. The law prohibits you from [...] error, please contact the sender immediately.[facility] ([facility]) Encounter Details Date Type Department Care Team (Late st Contact Info) Description 04/15/2011 Historical Note SVMG tagga System Devyn Vásquez MD [address] [place] [address] [phone] Social History Tobacco Use Types Packs/Day Years [...] [facility] at [facility] [address] [employer] [place] [phone] Brenda Clay MD [address] [facility] [address] [place] [phone] 04/15/2026 10:00 AM EDT Office Visit [facility]HA [facility] at [facility] + [facility] [address] [facility] [address] [place] [address] Sena Dominguez PA [address] [facility] [place] [address] documented as of this encounter Visit Diagnoses Not on filedocumented in this encounter Care Teams Warp Knitter Helper Relationship Specialty Start Date End Date Meme Steel MD [address] [place] [address] 105 [place] [address] PCP - General Pediatrics 06/05/18 04/25/22 No Pcp, Pcp PCP - General 06/08/22 07/19/22 Guadalupe Mcbride MD PCP - General Family Medicine 07/20/22 11/01/23 Sena Dominguez PA [address] [place] [address] [place] [address] PCP - BRADY Physician Batch Plant Operator 11/02/23 Levy Barry MD [address] [place] [address] [place] [address] PCP - General Family Medicine 12/20/23 documented as of this encounter
--- OUTSIDE RECORDS SUMMARY | 2025-07-28 14:38 | XMS_ITS | Encounter Summary ---
Author Organization [facility] work ([facility]) Address [address] [place] [address] Care Team Providers Care Pmo Business Analyst Name Role Phone Meme Steel MD Primary Care Provider [phone] Pcp, Pcp Primary Care Provider Unavailabl Guadalupe Bardales MD Primary Care Provider [phone] Sena Dominguez Unavailable [phone] Levy Barry MD Primary Care Provider Unavailab le Source Comments The information that you have received may contain highly confidential and/or federally protected health information. This information has been disclosed to you from records protected by [facility]. The law prohibits you from making [...] the sender immediately.[facility] ([facility]) Encounter Details Date Type Department Care Team (Late st Contact Info) Description 11/04/2005 Historical Note [facility] [employer] System Devyn Vásquez MD [address] [place] [phone] Social History Tobacco Use Types Packs/Day Years [...] LEATHA CARRILLO - [facility] [address] [facility] [address] [place] [phone] Brenda Clay MD [address] [facility] [address] [place] [address] 04/15/2026 10:00 AM EDT Office Visit [facility]HA [facility] + [facility] [address] [facility] [place] [address] Sena Dominguez [place] [address] [facility] [facility] [place] [address] documented as of this encounter Visit Diagnoses Not on filedocumented in this encounter Care Teams Pmo Business Analyst Relationship Specialty Start Date End Date Meme Steel MD [address] [place] [address] 105 [place] [address] PCP - General Pediatrics 06/05/18 04/25/22 No Pcp, Pcp PCP - General 06/08/22 07/19/22 Guadalupe Mcbride MD PCP - General Family Medicine 07/20/22 11/01/23 Sena Dominguez PA [address] [place] [address] [place] [address] PCP - BRADY Physician Intelligence Group Supervisor 11/02/23 Levy Barry MD [address] [place] [address] [place] [address] PCP - General Family Medicine 12/20/23 documented as of this encounter
--- OUTSIDE RECORDS SUMMARY | 2025-07-28 14:38 | XMS_ITS | Encounter Summary ---
Author Organization [facility] work ([facility] Address [address] [facility] [address] [place] [address] Care Team Providers Care Facilities Management Executive Name Role Phone Meme Steel MD Primary Care Provider [phone] Pcp, Pcp Primary Care Provider Unavailabl e Guadalupe Mcbride MD Primary Care Provider [phone] Sena Dominguez Unavailable [phone] Levy Barry MD Primary Care Provider Unavailab le Source Comments The information that you have received may contain highly confidential and/or federally protected health information. This information has been disclosed to you from records protected by [facility]. The law prohibits [...] please contact the sender immediately.[facility] ([facility] Encounter Details Date Type Department Care Team (Late st Contact Info) Description 10/31/2017 Historical Note [facility] Primary Care - [facility] [address] [place] [address] Devyn Vásquez MD [facility] [place] [address] Social History Tobacco Use Types Packs/Day Years Used Date Smoking Tobacco: Never Assessed Comments Unknown Sex and Gender Information Value Date Recorded Sex Assigned at Not on file Legal Sex Female 1:04 AM EDT Gender Identity Not on file Sexual Orientation Not on file documented as of this encounter Plan of Treatment Upcoming Encounters Date Type Department Care Team ([facility] st Contact Info) Description 10/10/2025 10:00 AM EST Office Visit LEATHA [facility] [address] [facility] [address] [place] [phone] Brenda Clay MD [address] [facility] [address] [place] [phone] 04/15/2026 10:00 AM EDT Office Visit LEATHA Primary Care at [facility] + [facility] [address] [facility] [address] [place] [address] Sena Dominguez PA [address] [place] [address] [place] [address] documented as of this encounter Visit Diagnoses Not on filedocumented in this encounter Care Teams Facilities Management Executive Relationship Specialty Start Date End Date Meme Steel MD [address] [place] [address] 105 [place] [address] PCP - General Pediatrics 06/05/18 04/25/22 No Pcp, Pcp PCP - General 06/08/22 07/19/22 Guadalupe Mcbride MD PCP - General Family Medicine 07/20/22 11/01/23 Sena Dominguez PA [address] [place] [address] [place] [address] PCP - BRADY Physician Coating And Baking Operator 11/02/23 Levy Barry MD [address] [facility] [place] [address] PCP - General Family Medicine 12/20/23 documented as of this encounter
--- OUTSIDE RECORDS SUMMARY | 2025-07-28 14:38 | XMS_ITS | Encounter Summary ---
Author Organization [facility] work ([facility]) Address [address] [place] [address] Care Team Providers Care Paper Stacker Name Role Phone Meme Steel MD Primary Care Provider [phone] Pcp, Pcp Primary Care Provider Unavailabl Guadalupe Bardales MD Primary Care Provider [phone] Sena Dominguez Unavailable [phone] Levy Barry MD Primary Care Provider Unavailab le Source Comments The information that you have received may contain highly confidential and/or federally protected health information. This information has been disclosed to you from records protected by [facility]. The law prohibits you from [...] the sender immediately.[facility] ([facility]) Encounter Details Date Type Department Care Team (Late st Contact Info) Description 09/16/2012 Historical Note [facility] [employer] System Devyn Vásquez MD [address] [place] [address] [phone] Social History Tobacco Use Types Packs/Day Years [...] 10/10/2025 10:00 AM EST Office Visit LEATHA CARRLILO - [facility] [address] [facility] [address] [place] [phone] Brenda Clay MD [address] [facility] [address] [place] [phone] 04/15/2026 10:00 AM EDT Office Visit LEATHA [facility] at [facility] + [facility] [address] [facility] [address] [place] [address] Sena Dominguez PA [address] [facility] [place] [address] documented as of this encounter Visit Diagnoses Not on filedocumented in this encounter Care Teams Paper Stacker Relationship Specialty Start Date End Date Meme Steel MD [address] [place] [address] 105 [place] [address] PCP - General Pediatrics 06/05/18 04/25/22 No Pcp, Pcp PCP - General 06/08/22 07/19/22 Guadalupe Mcbride MD PCP - General Family Medicine 07/20/22 11/01/23 Sena Dominguez PA [address] [place] [address] [place] [address] PCP - BRADY Physician Nurse Sane 11/02/23 Levy Barry MD [address] [place] [address] [place] [address] PCP - General Family Medicine 12/20/23 documented as of this encounter
--- OUTSIDE RECORDS SUMMARY | 2025-07-28 14:38 | XMS_ITS | Encounter Summary ---
Author Organization [facility] work ([facility]) Address [address] [place] [address] Care Team Providers Care Apparel Pattern Maker Name Role Phone Meme Steel MD Primary Care Provider [phone] No Pcp, Pcp Primary Care Provider Unavailabl Guadalupe Bardales MD Primary Care Provider Sena Dominguez Unavailable Levy Barry MD Primary Care Provider Unavailab le Source Comments The information that you have received may contain highly confidential and/or federally protected health information. This information has been disclosed to you from records protected by [facility]. The law prohibits you [...] in error, please contact the sender immediately. ([facility]) Encounter Details Date Type Department Care Team (Late st Contact Info) Description 05/24/2012 Historical Note [facility] [employer] System Devyn Vásquez MD [address] [place] [address] [phone] Social History Tobacco Use Types Packs/Day Years [...] [facility] [employer] [address] [facility] [address] [place] [phone] Brenda Clay MD [address] [facility] [address] [place] [address] 04/15/2026 10:00 AM EDT Office Visit LEATHA [facility] at [facility] + [facility] [address] [facility] [address] [place] [address] Sena Dominguez PA [address] [facility] [place] [address] documented as of this encounter Visit Diagnoses Not on filedocumented in this encounter Care Teams Apparel Pattern Maker Relationship Specialty Start Date End Date Meme Steel MD [address] [place] [address] 105 [place] [address] PCP - General Pediatrics 06/05/18 04/25/22 No Pcp, Pcp PCP - General 06/08/22 07/19/22 Guadalupe Mcbride MD PCP - General Family Medicine 07/20/22 11/01/23 Sena Dominguez PA [address] [place] [address] [place] [address] PCP - BRADY Physician Cloud Software Engineer 11/02/23 Levy Barry MD [address] [place] [address] [place] [address] PCP - General Family Medicine 12/20/23 documented as of this encounter
--- OUTSIDE RECORDS SUMMARY | 2025-07-28 14:38 | XMS_ITS | Encounter Summary ---
Author Organization [facility] work ([facility]) Address [address] [place] [address] Care Team Providers Care Suppression Crew Leader Name Role Phone Meme Steel MD Primary Care Provider [phone] Pcp, Pcp Primary Care Provider Unavailabl Guadalupe Bardales MD Primary Care Provider [phone] Sena Dominguez Unavailable [phone] Levy Barry MD Primary Care Provider Unavailab le Source Comments The information that you have received may contain highly confidential and/or federally protected health information. This information has been disclosed to you from records protected by [facility]. The law prohibits you from [...] the sender immediately.[facility] ([facility]) Encounter Details Date Type Department Care Team (Late st Contact Info) Description 09/10/2012 Historical Note [facility] [employer] System Devyn Vásquez MD [address] [place] [address] [phone] Social History Tobacco Use Types Packs/Day Years [...] AM EST Office Visit LEATHA CARIRLLO - [facility] [address] [facility] [address] [place] [phone] Brenda Clay MD [address] [facility] [address] [place] [phone] 04/15/2026 10:00 AM EDT Office Visit LEATHA Primary [facility] at [facility] + [facility] [address] [facility] [address] [place] [address] Sena Dominguez PA [address] [facility] [place] [address] documented as of this encounter Visit Diagnoses Not on filedocumented in this encounter Care Teams Suppression Crew Leader Relationship Specialty Start Date End Date Meme Steel MD [address] [place] [address] 105 [place] [address] PCP - General Pediatrics 06/05/18 04/25/22 No Pcp, Pcp PCP - General 06/08/22 07/19/22 Guadalupe Mcbride MD PCP - General Family Medicine 07/20/22 11/01/23 Sena Dominguez PA [address] [place] [address] [place] [address] PCP - BRADY Physician Boat Canvas Maker Installer 11/02/23 Levy Barry MD [address] [place] [address] [place] [address] PCP - General Family Medicine 12/20/23 documented as of this encounter
--- OUTSIDE RECORDS SUMMARY | 2025-07-28 14:38 | XMS_ITS | Encounter Summary ---
Author Organization [facility] work ([facility]) Address [address] [place] [address] Care Team Providers Care Material Disposition Inspector Name Role Phone Meme Steel MD Primary Care Provider [phone] Pcp, Pcp Primary Care Provider Unavailabl Guadalupe Bardales MD Primary Care Provider [phone] Sena Dominguez Unavailable [phone] Levy Barry MD Primary Care Provider Unavailab le Source Comments The information that you have received may contain highly confidential and/or federally protected health information. This information has been disclosed to you from records protected by [facility]. The law prohibits you [...] please contact the sender immediately.[facility] ([facility]) Encounter Details Date Type Department Care Team (Late st Contact Info) Description 02/08/2006 Historical Note [facility] [employer] System Devyn Vásquez MD [address] [place] [phone] Social History Tobacco Use Types Packs/Day Years [...] CARRILLO - [facility] [address] [facility] [address] [place] [phone] Brenda Clay MD [address] [facility] [address] [place] [address] 04/15/2026 10:00 AM EDT Office Visit LEATHA [facility] at [facility] + [facility] [address] [facility] [address] [place] [address] Sena Dominguez PA [address] [facility] [place] [address] documented as of this encounter Visit Diagnoses Not on filedocumented in this encounter Care Teams Material Disposition Inspector Relationship Specialty Start Date End Date Meme Steel MD [address] [place] [address] 105 [place] [address] PCP - General Pediatrics 06/05/18 04/25/22 No Pcp, Pcp PCP - General 06/08/22 07/19/22 Guadalupe Mcbride MD PCP - General Family Medicine 07/20/22 11/01/23 Sena Dominguez PA [address] [place] [address] [place] [address] PCP - BRADY Physician Wine Blender 11/02/23 Levy Barry MD [address] [place] [address] [place] [address] PCP - General Family Medicine 12/20/23 documented as of this encounter
--- OUTSIDE RECORDS SUMMARY | 2025-07-28 14:38 | XMS_ITS | Encounter Summary ---
Author Organization [facility] work ([facility]) Address [address] [place] [address] Care Team Providers Care Ground Hand Name Role Phone Meme Steel MD Primary Care Provider [phone] Pcp, Pcp Primary Care Provider Unavailabl Guadalupe Bardales MD Primary Care Provider [phone] Sena Dominguez Unavailable [phone] Levy Barry MD Primary Care Provider Unavailab le Source Comments The information that you have received may contain highly confidential and/or federally protected health information. This information has been disclosed to you from records protected by [facility]. The law prohibits [...] contact the sender immediately.[facility] ([facility]) Encounter Details Date Type Department Care Team (Late st Contact Info) Description 04/15/2011 Historical Note [facility] [employer] System Devyn Vásquez MD [address] [place] [address] [phone] Social History Tobacco Use Types Packs/Day Years [...] 10/10/2025 10:00 AM EST Office Visit LEATHA ACRRILLO - [facility] [address] [facility] [address] [place] [phone] Brenda Clay MD [address] [facility] [address] [place] [address] 04/15/2026 10:00 AM EDT Office Visit LEATHA [facility] at [facility] + [facility] [address] [facility] [address] [place] [address] Sena Dominguez PA [address] [facility] [place] [address] documented as of this encounter Visit Diagnoses Not on filedocumented in this encounter Care Teams Ground Hand Relationship Specialty Start Date End Date Meme Steel MD [address] [place] [address] 105 [place] [address] PCP - General Pediatrics 06/05/18 04/25/22 No Pcp, Pcp PCP - General 06/08/22 07/19/22 Guadalupe Mcbride MD PCP - General Family Medicine 07/20/22 11/01/23 Sena Dominguez PA [address] [place] [address] [place] [address] PCP - BRADY Physician Sewing Teacher 11/02/23 Levy Barry MD [address] [place] [address] [place] [address] PCP - General Family Medicine 12/20/23 documented as of this encounter
--- OUTSIDE RECORDS SUMMARY | 2025-07-28 14:38 | XMS_ITS | Encounter Summary ---
Author Organization [facility] work ([facility]) Address [address] [place] [address] Care Team Providers Care Machine Adjuster Helper Name Role Phone Meme Steel MD Primary Care Provider [phone] Pcp, Pcp Primary Care Provider Unavailabl Guadalupe Bardales MD Primary Care Provider [phone] Sena Dominguez Unavailable [phone] Levy Barry MD Primary Care Provider Unavailab le Source Comments The information that you have received may contain highly confidential and/or federally protected health information. This information has been disclosed to you from records protected by [facility]. The law prohibits you from [...] sender immediately.[facility] ([facility]) Encounter Details Date Type Department Care Team (Late st Contact Info) Description 05/21/2012 Historical Note [facility] [employer] System Devyn Vásquez MD [address] [place] [address] [phone] Social History Tobacco Use Types Packs/Day Years [...] Visit LEATHA CARRILLO - [facility] [address] [facility] [address] [place] [phone] Brenda Clay MD [address] [facility] [address] [place] [address] 04/15/2026 10:00 AM EDT Office Visit LEATHA [facility] at [facility] + [facility] [address] [facility] [address] [place] [address] Sena Dominguez PA [address] [facility] [place] [address] documented as of this encounter Visit Diagnoses Not on filedocumented in this encounter Care Teams Machine Adjuster Helper Relationship Specialty Start Date End Date Meme Steel MD [address] [place] [address] 105 [place] [address] PCP - General Pediatrics 06/05/18 04/25/22 No Pcp, Pcp PCP - General 06/08/22 07/19/22 Guadalupe Mcbride MD PCP - General Family Medicine 07/20/22 11/01/23 Sena Dominguez PA [address] [place] [address] [place] [address] PCP - BRADY Physician Electrical Electronics Technician 11/02/23 Levy Barry MD [address] [place] [address] [place] [address] PCP - General Family Medicine 12/20/23 documented as of this encounter
--- OUTSIDE RECORDS SUMMARY | 2025-07-28 14:38 | XMS_ITS | Encounter Summary ---
Author Organization [facility] work ([facility]) Address [address] [place] [address] Care Team Providers Care Training And Development Director Name Role Phone Meme Steel MD Primary Care Provider [phone] Pcp, Pcp Primary Care Provider Unavailabl Guadalupe Bardales MD Primary Care Provider [phone] Sena Dominguez Unavailable [phone] Levy Barry MD Primary Care Provider Unavailab le Source Comments The information that you have received may contain highly confidential and/or federally protected health information. This information has been disclosed to you from records protected by [facility]. The law prohibits you from [...] please contact the sender immediately.[facility] ([facility]) Encounter Details Date Type Department Care Team (Late st Contact Info) Description 11/06/2005 Historical Note [facility] Cuff[employer] System Devyn Vásquez MD [address] [place] [address] [phone] Social History Tobacco Use Types Packs/Day Years [...] - [facility] at [facility] [address] [facility] [address] [place] [phone] Brenda Clay MD [address] [facility] [address] [place] [address] 04/15/2026 10:00 AM EDT Office Visit LEATHA [facility] at [facility] + [facility] [address] [facility] [address] [place] [address] Sena Dominguez PA [address] [facility] [place] [address] documented as of this encounter Visit Diagnoses Not on filedocumented in this encounter Care Teams Training And Development Director Relationship Specialty Start Date End Date Meme Steel MD [address] [place] [address] 105 [place] [address] PCP - General Pediatrics 06/05/18 04/25/22 No Pcp, Pcp PCP - General 06/08/22 07/19/22 Guadalupe Mcbride MD PCP - General Family Medicine 07/20/22 11/01/23 Sena Dominguez PA [address] [place] [address] [place] [address] PCP - BRADY Physician A/C Technician 11/02/23 Levy Barry MD [address] [place] [address] [place] [address] PCP - General Family Medicine 12/20/23 documented as of this encounter
--- OUTSIDE RECORDS SUMMARY | 2025-07-28 14:38 | XMS_ITS | Encounter Summary ---
Author Organization [facility] work ([facility]) Address [address] [place] [address] Care Team Providers Care Associate Property Manager Name Role Phone Meme Steel MD Primary Care Provider [phone] Pcp, Pcp Primary Care Provider Unavailabl Guadalupe Bardales MD Primary Care Provider [phone] Sena Dominguez Unavailable [phone] Levy Barry MD Primary Care Provider Unavailab le Source Comments The information that you have received may contain highly confidential and/or federally protected health information. This information has been disclosed to you from records protected by [facility]. The law prohibits you [...] information in error, please contact the sender immediately.[facility] ([facility]) Encounter Details Date Type Department Care Team (Late st Contact Info) Description 02/08/2006 Historical Note [facility] [employer] System Devyn Vásquez MD [address] [place] [address] [phone] Social History Tobacco Use Types Packs/Day Years [...] LEATHA CARRILLO - [facility] [address] [facility] [address] [place] [phone] Brenda Clay MD [address] [facility] [address] [place] [address] 04/15/2026 10:00 AM EDT Office Visit [facility] at [facility] + [facility] [address] [facility] [address] [place] [address] Sena Dominguez PA [address] [facility] [place] [address] documented as of this encounter Visit Diagnoses Not on filedocumented in this encounter Care Teams Associate Property Manager Relationship Specialty Start Date End Date Meme Steel MD [address] [place] [address] 105 [place] [address] PCP - General Pediatrics 06/05/18 04/25/22 No Pcp, Pcp PCP - General 06/08/22 07/19/22 Guadalupe Mcbride MD PCP - General Family Medicine 07/20/22 11/01/23 Sena Dominguez PA [address] [place] [address] [place] [address] PCP - BRADY Physician Parts Cleaner 11/02/23 Levy Barry MD [address] [place] [address] [place] [address] PCP - General Family Medicine 12/20/23 documented as of this encounter
--- OUTSIDE RECORDS SUMMARY | 2025-07-28 14:38 | XMS_ITS | Encounter Summary ---
Author Organization [facility] work ([facility]) Address [address] [place] [address] Care Team Providers Care Dance Critic Name Role Phone Meme Steel MD Primary Care Provider [phone] Pcp, Pcp Primary Care Provider Unavailabl Guadalupe Bardales MD Primary Care Provider [phone] Sena Dominguez Unavailable [phone] Levy Barry MD Primary Care Provider Unavailab le Source Comments The information that you have received may contain highly confidential and/or federally protected health information. This information has been disclosed to you from records protected by [facility]. The law prohibits you from making [...] please contact the sender immediately.[facility] ([facility]) Encounter Details Date Type Department Care Team (Late st Contact Info) Description 01/23/2006 Historical Note [facility] [employer] System Devyn Vásquez MD [address] [place] [address] [phone] Social History Tobacco Use Types Packs/Day Years [...] CARRILLO - [facility] [address] [facility] [address] [place] [phone] Brenda Clay MD [address] [facility] [address] [place] [address] 04/15/2026 10:00 AM EDT Office Visit LE[facility]HA [facility] at [facility] [address] [facility] [address] [place] [address] Sena Dominguez PA [address] [facility] [place] [address] documented as of this encounter Visit Diagnoses Not on filedocumented in this encounter Care Teams Dance Critic Relationship Specialty Start Date End Date Meme Steel MD [address] [place] [address] 105 [place] [address] PCP - General Pediatrics 06/05/18 04/25/22 No Pcp, Pcp PCP - General 06/08/22 07/19/22 Guadalupe Mcbride MD PCP - General Family Medicine 07/20/22 11/01/23 Sena Dominguez PA [address] [place] [address] [place] [address] PCP - BRADY Physician Clinical Informatics Physician 11/02/23 Levy Barry MD [address] [place] [address] [place] [address] PCP - General Family Medicine 12/20/23 documented as of this encounter
--- OUTSIDE RECORDS SUMMARY | 2025-07-28 14:38 | XMS_ITS | Encounter Summary ---
Author Organization [facility] work ([facility]) Address [address] [place] [address] Care Team Providers Care Grease Machine Worker Name Role Phone Meme Steel MD Primary Care Provider [phone] Pcp, Pcp Primary Care Provider Unavailabl Guadalupe Bardales MD Primary Care Provider [phone] Sena Dominguez Unavailable [phone] Levy Barry MD Primary Care Provider Unavailab le Source Comments The information that you have received may contain highly confidential and/or federally protected health information. This information has been disclosed to you from records protected by [facility]. The law prohibits you from making [...] information in error, please contact the sender immediately.[facility] ([facility]) Encounter Details Date Type Department Care Team (Late st Contact Info) Description 02/08/2006 Historical Note [facility] [employer] System Devyn Vásquez MD [address] [place] [address] [phone] Social History Tobacco Use Types Packs/Day Years [...] LEATHA CARRILLO - [facility] [address] [facility] [address] [place] [phone] Brenda Clay MD [address] [facility] [address] [place] [address] 04/15/2026 10:00 AM EDT Office Visit [facility]HA [facility] at [facility] + [facility] [address] [facility] [address] [place] [address] Sena Dominguez PA [address] [facility] [place] [address] documented as of this encounter Visit Diagnoses Not on filedocumented in this encounter Care Teams Grease Machine Worker Relationship Specialty Start Date End Date Meme Steel MD [address] [place] [address] 105 [place] [address] PCP - General Pediatrics 06/05/18 04/25/22 No Pcp, Pcp PCP - General 06/08/22 07/19/22 Guadalupe Mcbride MD PCP - General Family Medicine 07/20/22 11/01/23 Sena Dominguez PA [address] [place] [address] [place] [address] PCP - BRADY Physician Global Category Manager 11/02/23 Levy Barry MD [address] [place] [address] [place] [address] PCP - General Family Medicine 12/20/23 documented as of this encounter
--- OUTSIDE RECORDS SUMMARY | 2025-07-28 14:38 | XMS_ITS | Encounter Summary ---
Author Organization [facility] work ([facility]) Address [address] [place] [address] Care Team Providers Care Accounts Payable Clerk Name Role Phone Meem Steel MD Primary Care Provider No Pcp, Pcp Primary Care Provider Unavailabl Guadalupe Bardales MD Primary Care Provider [phone] Sena Dominguez Unavailable [phone] Levy Barry MD Primary Care Provider Unavailab le Source Comments The information that you have received may contain highly confidential and/or federally protected health information. This information has been disclosed to you from records protected by [facility]. The law prohibits you [...] contact the sender immediately.[facility] ([facility]) Encounter Details Date Type Department Care Team (Late st Contact Info) Description 11/04/2005 Historical Note [facility] [employer] [facility] Devyn Vásquez MD [address] [place] [address] [phone] Social History Tobacco Use Types Packs/Day Years [...] LEATHA CARRILLO - [facility] [address] [facility] [address] [place] [phone] Brenda Clay MD [address] [facility] [address] [place] [address] 04/15/2026 10:00 AM EDT Office Visit LEATHA [facility] at [facility] + [facility] [address] [facility] [address] [place] [address] Sena Dominguez PA [address] [facility] [place] [address] documented as of this encounter Visit Diagnoses Not on filedocumented in this encounter Care Teams Accounts Payable Clerk Relationship Specialty Start Date End Date Meme Steel MD [address] [place] [address] 105 [place] [address] PCP - General Pediatrics 06/05/18 04/25/22 No Pcp, Pcp PCP - General 06/08/22 07/19/22 Guadalupe Mcbride MD PCP - General Family Medicine 07/20/22 11/01/23 Sena Dominguez PA [address] [place] [address] [place] [address] PCP - BRADY Physician Cnc Wood Lathe Operator 11/02/23 Levy Barry MD [address] [place] [address] [place] [address] PCP - General Family Medicine 12/20/23 documented as of this encounter
--- OUTSIDE RECORDS SUMMARY | 2025-07-28 14:38 | XMS_ITS | Encounter Summary ---
Author Organization [facility] work ([facility]) Address [address] [place] [address] Care Team Providers Care Traffic Checker Name Role Phone Meme Steel MD Primary Care Provider [phone] No Pcp, Pcp Primary Care Provider Unavailabl Guadalupe Bardales MD Primary Care Provider [phone] Sena Dominguez Unavailable [phone] Levy Barry MD Primary Care Provider Unavailab le Source Comments The information that you have received may contain highly confidential and/or federally protected health information. This information has been disclosed to you from records protected by [facility]. The law prohibits you from making [...] in error, please contact the sender immediately.[facility] ([facility]) Encounter Details Date Type Department Care Team (Late st Contact Info) Description 09/10/2012 Historical Note [facility] [employer] System Devyn Vásquez MD [address] [place] [address] [phone] Social History Tobacco Use Types Packs/Day Years [...] [facility] [address] [facility] [address] [place] [phone] Brenda Clay MD [address] [facility] [address] [place] [address] 04/15/2026 10:00 AM EDT Office Visit LEATHA Primary [facility] at [facility] + [facility] [address] [facility] [address] [place] [address] Sena Dominguez PA [address] [facility] [place] [address] documented as of this encounter Visit Diagnoses Not on filedocumented in this encounter Care Teams Traffic Checker Relationship Specialty Start Date End Date Meme Steel MD [address] [place] [address] 105 [place] [address] PCP - General Pediatrics 06/05/18 04/25/22 No Pcp, Pcp PCP - General 06/08/22 07/19/22 Guadalupe Mcbride MD PCP - General Family Medicine 07/20/22 11/01/23 Sena Dominguez PA [address] [place] [address] [place] [address] PCP - BRADY Physician Panel Fitter 11/02/23 Levy Barry MD [address] [place] [address] [place] [address] PCP - General Family Medicine 12/20/23 documented as of this encounter
--- OUTSIDE RECORDS SUMMARY | 2025-07-28 14:38 | XMS_ITS | Encounter Summary ---
Author Organization [facility] work ([facility]) Address [address] [place] [address] Care Team Providers Care Coremaker Bench Name Role Phone Meme Steel MD Primary Care Provider [phone] Pcp, Pcp Primary Care Provider Unavailabl Guadalupe Bardales MD Primary Care Provider [phone] Sena Dominguez Unavailable [phone] Levy Barry MD Primary Care Provider Unavailab le Source Comments The information that you have received may contain highly confidential and/or federally protected health information. This information has been disclosed to you from records protected by [facility]. The law prohibits you from [...] sender immediately.[facility] ([facility]) Encounter Details Date Type Department Care Team (Late st Contact Info) Description 09/10/2012 Historical Note [facility] [employer] System Devyn Vásquez MD [address] [place] [address] [phone] Social History Tobacco Use Types Packs/Day Years [...] [facility] [address] [facility] [address] [place] [phone] Brenda Clay MD [address] [facility] [address] [place] [address] 04/15/2026 10:00 AM EDT Office Visit LE[facility]HA [facility] at [facility] [address] [facility] [address] [place] [address] Sena Dominguez PA [address] [facility] [place] [address] documented as of this encounter Visit Diagnoses Not on filedocumented in this encounter Care Teams Coremaker Bench Relationship Specialty Start Date End Date Meme Steel MD [address] [place] [address] 105 [place] [address] PCP - General Pediatrics 06/05/18 04/25/22 No Pcp, Pcp PCP - General 06/08/22 07/19/22 Guadalupe Mcbride MD PCP - General Family Medicine 07/20/22 11/01/23 Sena Dominguez PA [address] [place] [address] [place] [address] PCP - BRADY Physician Supervisor Poultry Farm 11/02/23 Levy Barry MD [address] [place] [address] [place] [address] PCP - General Family Medicine 12/20/23 documented as of this encounter
--- OUTSIDE RECORDS SUMMARY | 2025-07-28 14:38 | XMS_ITS | Encounter Summary ---
Author Organization [facility] work ([facility]) Address [address] [place] [address] Care Team Providers Care Labor Delivery Specialist Name Role Phone Meme Steel MD Primary Care Provider [phone] Pcp, Pcp Primary Care Provider Unavailabl Guadalupe Bardales MD Primary Care Provider [phone] Sena Dominguez Unavailable [phone] Levy Barry MD Primary Care Provider Unavailab le Source Comments The information that you have received may contain highly confidential and/or federally protected health information. This information has been disclosed to you from records protected by [facility]. The law prohibits you from making [...] please contact the sender immediately.[facility] ([facility]) Encounter Details Date Type Department Care Team (Late st Contact Info) Description 04/12/2011 Historical Note [facility] [employer] System Devyn Vásquez MD [address] [place] [address] [phone] Social History Tobacco Use Types Packs/Day Years [...] LEATHA CARRILLO - [facility] [address] [facility] [address] [place] [phone] Brenda Clay MD [address] [facility] [address] [place] [phone] 04/15/2026 10:00 AM EDT Office Visit LEATHA Primary Care at [facility] + [facility] [address] [facility] [address] [place] [address] Sena Dominguez PA [address] [facility] [place] [address] documented as of this encounter Visit Diagnoses Not on filedocumented in this encounter Care Teams Labor Delivery Specialist Relationship Specialty Start Date End Date Meme Steel MD [address] [place] [address] 105 [place] [address] PCP - General Pediatrics 06/05/18 04/25/22 No Pcp, Pcp PCP - General 06/08/22 07/19/22 Guadalupe Mcbride MD PCP - General Family Medicine 07/20/22 11/01/23 Sena Dominguez PA [address] [place] [address] [place] [address] PCP - BRADY Physician Medical Imaging Technologist 11/02/23 Levy Barry MD [address] [place] [address] [place] [address] PCP - General Family Medicine 12/20/23 documented as of this encounter
--- OUTSIDE RECORDS SUMMARY | 2025-07-28 14:38 | XMS_ITS | Encounter Summary ---
Author Organization [facility] work ([facility]) Address [address] [place] [address] Care Team Providers Care Employment Specialist/Program Manager Name Role Phone Meme Steel MD Primary Care Provider [phone] Pcp, Pcp Primary Care Provider Unavailabl Guadalupe Bardales MD Primary Care Provider [phone] Sena Dominguez Unavailable [phone] Levy Barry MD Primary Care Provider Unavailab le Source Comments The information that you have received may contain highly confidential and/or federally protected health information. This information has been disclosed to you from records protected by [facility]. The law prohibits you from [...] contact the sender immediately.[facility] ([facility]) Encounter Details Date Type Department Care Team (Late st Contact Info) Description 02/09/2006 Historical Note [facility] [employer] Devyn Vásquez MD [address] [place] [address] [phone] Social History Tobacco Use Types Packs/Day Years [...] LEATHA CARRILLO - [facility] [address] [facility] [address] [place] [phone] Brenda Clay MD [address] [facility] [address] [place] [address] 04/15/2026 10:00 AM EDT Office Visit LEATHA Primary Care at [facility] + [facility] [address] [facility] [address] [place] [address] Sena Dominguez PA [address] [facility] [place] [address] documented as of this encounter Visit Diagnoses Not on filedocumented in this encounter Care Teams Employment Specialist/Program Manager Relationship Specialty Start Date End Date Meme Steel MD [address] [place] [address] 105 [place] [address] PCP - General Pediatrics 06/05/18 04/25/22 No Pcp, Pcp PCP - General 06/08/22 07/19/22 Guadalupe Mcbride MD PCP - General Family Medicine 07/20/22 11/01/23 Sena Dominguez PA [address] [place] [address] [place] [address] PCP - BRADY Physician Die Cast Die Maker 11/02/23 Levy Barry MD [address] [place] [address] [place] [address] PCP - General Family Medicine 12/20/23 documented as of this encounter
--- OUTSIDE RECORDS SUMMARY | 2025-07-28 14:38 | XMS_ITS | Encounter Summary ---
Author Organization [facility] work ([facility]) Address [address] [place] [address] Care Team Providers Care Rippler Name Role Phone Meme Steel MD Primary Care Provider [phone] No Pcp, Pcp Primary Care Provider Unavailabl Guadalupe Bardales MD Primary Care Provider [phone] Sena Dominguez Unavailable [phone] Levy Barry MD Primary Care Provider Unavailab le Source Comments The information that you have received may contain highly confidential and/or federally protected health information. This information has been disclosed to you from records protected by [facility]. The law prohibits you [...] please contact the sender immediately.[facility] ([facility]) Encounter Details Date Type Department Care Team (Late st Contact Info) Description 09/10/2012 Historical Note [facility] [employer] System Devyn Vásquez MD [address] [place] [address] [phone] Social History Tobacco Use Types Packs/Day Years [...] LEATHA CARRILLO - [facility] [address] [facility] [address] [place] [phone] Brenda Clay MD [address] [facility] [address] [place] [address] 04/15/2026 10:00 AM EDT Office Visit LEATHA [facility] at [facility] + [facility] [address] [facility] [address] [place] [address] Sena Dominguez PA [address] [facility] [place] [address] documented as of this encounter Visit Diagnoses Not on filedocumented in this encounter Care Teams Rippler Relationship Specialty Start Date End Date Meme Steel MD [address] [place] [address] 105 [place] [address] PCP - General Pediatrics 06/05/18 04/25/22 No Pcp, Pcp PCP - General 06/08/22 07/19/22 Guadaulpe Mcbride MD PCP - General Family Medicine 07/20/22 11/01/23 Sena Dominguez PA [address] [place] [address] [place] [address] PCP - BRADY Physician Senior Patrol Agent 11/02/23 Levy Barry MD [address] [place] [address] [place] [address] PCP - General Family Medicine 12/20/23 documented as of this encounter
--- OUTSIDE RECORDS SUMMARY | 2025-07-28 14:38 | XMS_ITS | Encounter Summary ---
Author Organization [facility] work ([facility]) Address [address] [place] [address] Care Team Providers Care Report Manager Name Role Phone Meme Steel MD Primary Care Provider [phone] No Pcp, Pcp Primary Care Provider Unavailabl Guadalupe Bardales MD Primary Care Provider [phone] Sena Dominguez Unavailable [phone] Levy Barry MD Primary Care Provider Unavailab le Source Comments The information that you have received may contain highly confidential and/or federally protected health information. This information has been disclosed to you from records protected by [facility]. The law prohibits you [...] the sender immediately.[facility] ([facility]) Encounter Details Date Type Department Care Team (Late st Contact Info) Description 05/24/2012 Historical Note [facility] [employer] System Devyn Vásquez MD [address] [place] [address] [phone] Social History Tobacco Use Types Packs/Day Years [...] LEATHA CARRILLO - [facility] [address] [facility] [address] [place] [phone] Brenda Clay MD [address] [facility] [address] [place] [address] 04/15/2026 10:00 AM EDT Office Visit LE[facility]HA [facility] at [facility] [address] [facility] [address] [place] [address] Sena Dominguez PA [address] [facility] [place] [address] documented as of this encounter Visit Diagnoses Not on filedocumented in this encounter Care Teams Report Manager Relationship Specialty Start Date End Date Meme Steel MD [address] [place] [address] 105 [place] [address] PCP - General Pediatrics 06/05/18 04/25/22 No Pcp, Pcp PCP - General 06/08/22 07/19/22 Guadalupe Mcbride MD PCP - General Family Medicine 07/20/22 11/01/23 Sena Dominguez PA [address] [place] [address] [place] [address] PCP - BRADY Physician Community Manager 11/02/23 Levy Barry MD [address] [place] [address] [place] [address] PCP - General Family Medicine 12/20/23 documented as of this encounter
--- OUTSIDE RECORDS SUMMARY | 2025-07-28 14:38 | XMS_ITS | Encounter Summary ---
Author Organization [facility] work ([facility]) Address [address] [place] [address] Care Team Providers Care Ladle Filler Name Role Phone Meme Steel MD Primary Care Provider [phone] Pcp, Pcp Primary Care Provider Unavailabl Guadalupe Bardales MD Primary Care Provider [phone] Sena Dominguez Unavailable [phone] Levy Barry MD Primary Care Provider Unavailab le Source Comments The information that you have received may contain highly confidential and/or federally protected health information. This information has been disclosed to you from records protected by [facility]. The law prohibits you from [...] error, please contact the sender immediately.[facility] ([facility]) Encounter Details Date Type Department Care Team (Late st Contact Info) Description 04/15/2011 Historical Note [facility] e-Tag System Devyn Vásquez MD [address] [place] [address] [phone] Social History Tobacco Use Types Packs/Day Years [...] CARRILLO - [facility] [address] [facility] [address] [place] [phone] Brenda Clay MD [address] [facility] [address] [place] [address] 04/15/2026 10:00 AM EDT Office Visit [facility]HA [facility] at [facility] + [facility] [address] [facility] [address] [place] [address] Sena Dominguez PA [address] [facility] [place] [address] documented as of this encounter Visit Diagnoses Not on filedocumented in this encounter Care Teams Ladle Filler Relationship Specialty Start Date End Date Meme Steel MD [address] [place] [address] 105 [place] [address] PCP - General Pediatrics 06/05/18 04/25/22 No Pcp, Pcp PCP - General 06/08/22 07/19/22 Guadalupe Mcbride MD PCP - General Family Medicine 07/20/22 11/01/23 Sena Dominguez PA [address] [place] [address] [place] [address] PCP - BRADY Physician General Studies Program Chair 11/02/23 Levy Barry MD [address] [place] [address] [place] [address] PCP - General Family Medicine 12/20/23 documented as of this encounter
--- OUTSIDE RECORDS SUMMARY | 2025-07-28 14:38 | XMS_ITS | Encounter Summary ---
Author Organization [facility] work ([facility]) Address [address] [place] [address] Care Team Providers Care Car Rental Clerk Name Role Phone Meme Steel MD Primary Care Provider [phone] Pcp, Pcp Primary Care Provider Unavailabl Guadalupe Bardales MD Primary Care Provider [phone] Sena Dominguez Unavailable [phone] Levy Barry MD Primary Care Provider Unavailab le Source Comments The information that you have received may contain highly confidential and/or federally protected health information. This information has been disclosed to you from records protected by [facility]. The law prohibits you [...] Contact Info) Description 10/31/2017 Historical Note [facility] GlobeRanger System Devyn Vásquez MD [address] [place] [address] [phone] Social History Tobacco Use Types Packs/Day Years [...] CARRILLO - [facility] [address] [facility] [address] [place] [phone] Brenda Clay MD [address] [facility] [address] [place] [address] 04/15/2026 10:00 AM EDT Office Visit [facility]HA [facility] at [facility] + [facility] [address] [facility] [address] [place] [address] Sena Dominguez PA [address] [facility] [place] [address] documented as of this encounter Visit Diagnoses Not on filedocumented in this encounter Care Teams Car Rental Clerk Relationship Specialty Start Date End Date Meme Steel MD [address] [place] [address] 105 [place] [address] PCP - General Pediatrics 06/05/18 04/25/22 No Pcp, Pcp PCP - General 06/08/22 07/19/22 Guadalupe Mcbride MD PCP - General Family Medicine 07/20/22 11/01/23 Sena Dominguez PA [address] [place] [address] [place] [address] PCP - BRADY Physician Bilingual Loan Processor 11/02/23 Levy Barry MD [address] [place] [address] [place] [address] PCP - General Family Medicine 12/20/23 documented as of this encounter
--- OUTSIDE RECORDS SUMMARY | 2025-07-28 14:38 | XMS_ITS | Encounter Summary ---
Author Organization [facility] work ([facility]) Address [address] [place] [address] Care Team Providers Care Resin Shaver Name Role Phone Meme Steel MD Primary Care Provider [phone] Pcp, Pcp Primary Care Provider Unavailabl Guadalupe Bardales MD Primary Care Provider [phone] Sena Dominguez Unavailable [phone] Levy Barry MD Primary Care Provider Unavailab le Source Comments The information that you have received may contain highly confidential and/or federally protected health information. This information has been disclosed to you from records protected by [facility]. The law prohibits you from [...] please contact the sender immediately.[facility] ([facility]) Encounter Details Date Type Department Care Team (Late st Contact Info) Description 02/08/2006 Historical Note [facility] Nursenav System Devyn Vásquez MD [address] [place] [address] [phone] Social History Tobacco Use Types Packs/Day Years [...] - [facility] [address] [facility] [address] [place] [phone] Brenda Clay MD [address] [facility] [address] [place] [address] 04/15/2026 10:00 AM EDT Office Visit LEATHA Primary Care at [facility] + [facility] [address] [facility] [address] [place] [address] Sena Dominguez PA [address] [facility] [place] [address] documented as of this encounter Visit Diagnoses Not on filedocumented in this encounter Care Teams Resin Shaver Relationship Specialty Start Date End Date Meme Steel MD [address] [place] [address] 105 [place] [address] PCP - General Pediatrics 06/05/18 04/25/22 No Pcp, Pcp PCP - General 06/08/22 07/19/22 Guadalupe Mcbride MD PCP - General Family Medicine 07/20/22 11/01/23 Sena Dominguez PA [address] [place] [address] [place] [address] PCP - BRADY Physician Senior Environmental Practice Leader 11/02/23 Levy Barry MD [address] [place] [address] [place] [address] PCP - General Family Medicine 12/20/23 documented as of this encounter
--- OUTSIDE RECORDS SUMMARY | 2025-07-28 14:38 | XMS_ITS | Encounter Summary ---
Author Organization [facility] work ([facility]) Address [address] [place] [address] Care Team Providers Care Wringer Machine Operator Name Role Phone Meme Steel MD Primary Care Provider [phone] Pcp, Pcp Primary Care Provider Unavailabl Guadalupe Bardales MD Primary Care Provider [phone] Sena Dominguez Unavailable [phone] Levy Barry MD Primary Care Provider Unavailab le Source Comments The information that you have received may contain highly confidential and/or federally protected health information. This information has been disclosed to you from records protected by [facility]. The law prohibits you [...] sender immediately.[facility] ([facility]) Encounter Details Date Type Department Care Team (Late st Contact Info) Description 05/24/2012 Historical Note [facility] DeviceFidelity System Devyn Vásquez MD [address] [place] [address] [phone] Social History Tobacco Use Types Packs/Day Years [...] CARRILLO - [facility] [address] [facility] [address] [place] [phone] Brenda Clay MD [address] [facility] [address] [place] [address] 04/15/2026 10:00 AM EDT Office Visit LE[facility]HA [facility] at [facility] [address] [facility] [address] [place] [address] Sena Dominguez PA [address] [facility] [place] [address] documented as of this encounter Visit Diagnoses Not on filedocumented in this encounter Care Teams Wringer Machine Operator Relationship Specialty Start Date End Date Meme Steel MD [address] [place] [address] 105 [place] [address] PCP - General Pediatrics 06/05/18 04/25/22 No Pcp, Pcp PCP - General 06/08/22 07/19/22 Guadalupe Mcbride MD PCP - General Family Medicine 07/20/22 11/01/23 Sena Dominguez PA [address] [place] [address] [place] [address] PCP - BRADY Physician Transportation Modeler 11/02/23 Levy Barry MD [address] [place] [address] [place] [address] PCP - General Family Medicine 12/20/23 documented as of this encounter
--- OUTSIDE RECORDS SUMMARY | 2025-07-28 14:38 | XMS_ITS | Encounter Summary ---
Author Organization [facility] work ([facility]) Address [address] [place] [address] Care Team Providers Care Screen Cleaner Name Role Phone Meme Steel MD Primary Care Provider [phone] Pcp, Pcp Primary Care Provider Unavailabl Guadalupe Bardales MD Primary Care Provider [phone] Sena Dominguez Unavailable [phone] Levy Barry MD Primary Care Provider Unavailab le Source Comments The information that you have received may contain highly confidential and/or federally protected health information. This information has been disclosed to you from records protected by [facility]. The law prohibits you from [...] error, please contact the sender immediately.[facility] ([facility]) Encounter Details Date Type Department Care Team (Late st Contact Info) Description 04/15/2011 Historical Note [facility] Frugoton System Devyn Vásquez MD [address] [place] [address] [phone] Social History Tobacco Use Types Packs/Day Years [...] Visit LEATHA CARRILLO - [facility] [address] [facility] [address] [place] [phone] Brenda Clay MD [address] [facility] [address] [place] [address] 04/15/2026 10:00 AM EDT Office Visit [facility]HA [facility] [address] [facility] [address] [place] [address] Sena Dominguez PA [address] [facility] [place] [address] documented as of this encounter Visit Diagnoses Not on filedocumented in this encounter Care Teams Screen Cleaner Relationship Specialty Start Date End Date Meme Steel MD [address] [place] [address] 105 [place] [address] PCP - General Pediatrics 06/05/18 04/25/22 No Pcp, Pcp PCP - General 06/08/22 07/19/22 Guadalupe Mcbride MD PCP - General Family Medicine 07/20/22 11/01/23 Sena Dominguez PA [address] [place] [address] [place] [address] PCP - BRADY Physician Heavy Antiarmor Weapons Infantryman 11/02/23 Levy Barry MD [address] [place] [address] [place] [address] PCP - General Family Medicine 12/20/23 documented as of this encounter
--- OUTSIDE RECORDS SUMMARY | 2025-07-28 14:38 | XMS_ITS | Encounter Summary ---
Author Organization [facility] work ([facility]) Address [address] [place] [address] Care Team Providers Care Die Maintenance Name Role Phone Meme Steel MD Primary Care Provider [phone] Pcp, Pcp Primary Care Provider Unavailabl Guadalupe Bardales MD Primary Care Provider [phone] Sena Dominguez Unavailable [phone] Levy Barry MD Primary Care Provider Unavailab le Source Comments The information that you have received may contain highly confidential and/or federally protected health information. This information has been disclosed to you from records protected by [facility]. The law prohibits you from [...] contact the sender immediately.[facility] ([facility]) Encounter Details Date Type Department Care Team (Late st Contact Info) Description 11/09/2005 Historical Note SVM[facility] [employer] System Devyn Vásquez MD [address] [place] [address] [id number] Social History Tobacco Use Types Packs/Day Years [...] Visit LEATHA CARRILLO - [facility] [address] [facility] [address] [place] [phone] Brenda Clay MD [address] [facility] [address] [place] [address] 04/15/2026 10:00 AM EDT Office Visit LEATHA Primary [facility] at [facility] [address] [facility] [address] [place] [address] Sena Dominguez PA [address] [facility] [place] [address] documented as of this encounter Visit Diagnoses Not on filedocumented in this encounter Care Teams Die Maintenance Relationship Specialty Start Date End Date Meme Steel MD [address] [place] [address] 105 [place] [address] PCP - General Pediatrics 06/05/18 04/25/22 No Pcp, Pcp PCP - General 06/08/22 07/19/22 Guadalupe Mcbride MD PCP - General Family Medicine 07/20/22 11/01/23 Sena Dominguez PA [address] [place] [address] [place] [address] PCP - BRADY Physician Clinical Massage Therapist 11/02/23 Levy Barry MD [address] [place] [address] [place] [address] PCP - General Family Medicine 12/20/23 documented as of this encounter
--- OUTSIDE RECORDS SUMMARY | 2025-07-28 14:38 | XMS_ITS | Encounter Summary ---
Author Organization [facility] work ([facility]) Address [address] [place] [address] Care Team Providers Care Telephone Operator Receptionist Name Role Phone Meme Steel MD Primary Care Provider [phone] Pcp, Pcp Primary Care Provider Unavailabl Guadalupe Bardales MD Primary Care Provider [phone] Sena Dominguez Unavailable [phone] Levy Barry MD Primary Care Provider Unavailab le Source Comments The information that you have received may contain highly confidential and/or federally protected health information. This information has been disclosed to you from records protected by [facility]. The law prohibits you [...] the sender immediately.[facility] ([facility]) Encounter Details Date Type Department Care Team (Late st Contact Info) Description 05/22/2012 Historical Note SVMG Life800 System Devyn Vásquez MD [address] [place] [address] [phone] Social History Tobacco Use Types Packs/Day Years [...] AM EST Office Visit LEATHA CARRILLO - [facility] [address] [facility] [address] [place] [phone] Brenda Clay MD [address] [facility] [address] [place] [address] 04/15/2026 10:00 AM EDT Office Visit LEATHA [facility] at [facility] + [facility] [address] [facility] [address] [place] [address] Sena Dominguez PA [address] [facility] [place] [address] documented as of this encounter Visit Diagnoses Not on filedocumented in this encounter Care Teams Telephone Operator Receptionist Relationship Specialty Start Date End Date Meme Steel MD [address] [place] [address] 105 [place] [address] PCP - General Pediatrics 06/05/18 04/25/22 No Pcp, Pcp PCP - General 06/08/22 07/19/22 Guadalupe Mcbride MD PCP - General Family Medicine 07/20/22 11/01/23 Sena Dominguez PA [address] [place] [address] [place] [address] PCP - BRADY Physician Timber Mill Worker 11/02/23 Levy Barry MD [address] [place] [address] [place] [address] PCP - General Family Medicine 12/20/23 documented as of this encounter
--- OUTSIDE RECORDS SUMMARY | 2025-07-28 14:38 | XMS_ITS | Encounter Summary ---
Author Organization [facility] work ([facility]) Address [address] [place] [address] Care Team Providers Care Finishing Technician Name Role Phone Meme Steel MD Primary Care Provider No Pcp, Pcp Primary Care Provider Unavailabl Guadalupe Bardales MD Primary Care Provider [phone] Sena Dominguez Unavailable [phone] Levy Barry MD Primary Care Provider Unavailab le Source Comments The information that you have received may contain highly confidential and/or federally protected health information. This information has been disclosed to you from records protected by [facility]. The law prohibits you from [...] the sender immediately.[facility] ([facility]) Encounter Details Date Type Department Care Team (Late st Contact Info) Description 11/07/2005 Historical Note SVMG Reniac System Devyn Vásquez MD [address] [place] [address] [phone] Social History Tobacco Use Types Packs/Day Years [...] LEATHA CARRILLO - [facility] [address] [facility] [address] [place] [phone] Brenda Clay MD [address] [facility] [address] [place] [address] 04/15/2026 10:00 AM EDT Office Visit LEATHA Primary [facility] at [facility] + [facility] [address] [facility] [address] [place] [address] Sena Dominguez PA [address] [facility] [place] [address] documented as of this encounter Visit Diagnoses Not on filedocumented in this encounter Care Teams Finishing Technician Relationship Specialty Start Date End Date Meme Steel MD [address] [place] [address] 105 [place] [address] PCP - General Pediatrics 06/05/18 04/25/22 No Pcp, Pcp PCP - General 06/08/22 07/19/22 Guadalupe Mcbride MD PCP - General Family Medicine 07/20/22 11/01/23 Sena Dominguez PA [address] [place] [address] [place] [address] PCP - BRADY Physician Horticultural Services Supervisor 11/02/23 Levy Barry MD [address] [place] [address] [place] [address] PCP - General Family Medicine 12/20/23 documented as of this encounter
--- OUTSIDE RECORDS SUMMARY | 2025-07-28 14:38 | XMS_ITS | Encounter Summary ---
Author Organization [facility] work ([facility]) Address [address] [place] [address] Care Team Providers Care Brick And Blocker Aid Labor Name Role Phone Meme Steel MD Primary Care Provider [phone] No Pcp, Pcp Primary Care Provider Unavailabl Guadalupe Bardales MD Primary Care Provider [phone] Sena Dominguez Unavailable [phone] Levy Barry MD Primary Care Provider Unavailab le Source Comments The information that you have received may contain highly confidential and/or federally protected health information. This information has been disclosed to you from records protected by [facility]. The law prohibits you [...] please contact the sender immediately.[facility] ([facility]) Encounter Details Date Type Department Care Team (Late st Contact Info) Description 02/09/2006 Historical Note SVMG Tripvisto System Devyn áVsquez MD [address] [place] [address] [phone] Social History Tobacco Use Types Packs/Day Years [...] Office Visit LEATHA CARRILLO - [facility] [address] [facility] [address] [place] [phone] Brenda Clay MD [address] [facility] [address] [place] [phone] 04/15/2026 10:00 AM EDT Office Visit LEATHA [facility] at [facility] [address] [facility] [address] [place] [address] Sena Dominguez PA [address] [facility] [place] [address] documented as of this encounter Visit Diagnoses Not on filedocumented in this encounter Care Teams Brick And Blocker Aid Labor Relationship Specialty Start Date End Date Meme Steel MD [address] [place] [address] 105 [place] [address] PCP - General Pediatrics 06/05/18 04/25/22 No Pcp, Pcp PCP - General 06/08/22 07/19/22 Guadalupe Mcbride MD PCP - General Family Medicine 07/20/22 11/01/23 Sena Dominguez PA [address] [place] [address] [place] [address] PCP - BRADY Physician Loss Prevention Representative 11/02/23 Levy Barry MD [address] [place] [address] [place] [address] PCP - General Family Medicine 12/20/23 documented as of this encounter
--- OUTSIDE RECORDS SUMMARY | 2025-07-28 14:38 | XMS_ITS | Encounter Summary ---
Author Organization [facility] work ([facility]) Address [address] [place] [address] Care Team Providers Care Software Development Project Manager Name Role Phone Meme Steel MD Primary Care Provider [phone] No Pcp, Pcp Primary Care Provider Unavailabl Guadalupe Bardales MD Primary Care Provider [phone] Sena Dominguez Unavailable [phone] Levy Barry MD Primary Care Provider Unavailab le Source Comments The information that you have received may contain highly confidential and/or federally protected health information. This information has been disclosed to you from records protected by [facility]. The law prohibits you from making [...] information in error, please contact the sender immediately.[facility] ([facility]) Encounter Details Date Type Department Care Team (Late st Contact Info) Description 05/24/2012 Historical Note SVM[facility] [employer] System Devyn Vásquez MD [address] [place] [address] [phone] Social History Tobacco Use Types Packs/Day Years [...] EST Office Visit LEATHA CARRILLO - [facility] [address] [facility] [address] [place] [phone] Brenda Clay MD [address] [facility] [address] [place] [address] 04/15/2026 10:00 AM EDT Office Visit LEATHA [facility] + [facility] [address] [facility] [address] [place] [address] Sena Dominguez PA [address] [facility] [place] [address] documented as of this encounter Visit Diagnoses Not on filedocumented in this encounter Care Teams Software Development Project Manager Relationship Specialty Start Date End Date Meme Steel MD [address] [place] [address] 105 [place] [address] PCP - General Pediatrics 06/05/18 04/25/22 No Pcp, Pcp PCP - General 06/08/22 07/19/22 Guadalupe Mcbride MD PCP - General Family Medicine 07/20/22 11/01/23 Sena Dominguez PA [address] [place] [address] [place] [address] PCP - BRADY Physician Charge Account Clerk 11/02/23 Levy Barry MD [address] [place] [address] [place] [address] PCP - General Family Medicine 12/20/23 documented as of this encounter
--- OUTSIDE RECORDS SUMMARY | 2025-07-28 14:38 | XMS_ITS | Encounter Summary ---
Author Organization [facility] work ([facility]) Address [address] [place] [address] Care Team Providers Care Cotton Grader Name Role Phone Meme Steel MD Primary Care Provider [phone] Pcp, Pcp Primary Care Provider Unavailabl Guadalupe Bardales MD Primary Care Provider [phone] Sena Dominguez Unavailable [phone] Levy Barry MD Primary Care Provider Unavailab le Source Comments The information that you have received may contain highly confidential and/or federally protected health information. This information has been disclosed to you from records protected by [facility]. The law prohibits you from [...] contact the sender immediately.[facility] ([facility]) Encounter Details Date Type Department Care Team (Late st Contact Info) Description 11/06/2005 Historical Note [facility] [employer] System Devyn Vásquez MD [address] [place] [address] [phone] Social History Tobacco Use Types Packs/Day Years [...] LEATHA CARRILLO - [facility] [address] [facility] [address] [place] [phone] Brenda Clay MD [address] [facility] [address] [place] [address] 04/15/2026 10:00 AM EDT Office Visit [facility]ATHA [facility] at [facility] + [facility] [address] [facility] [address] [place] [address] Sena Dominguez PA [address] [facility] [place] [address] documented as of this encounter Visit Diagnoses Not on filedocumented in this encounter Care Teams Cotton Grader Relationship Specialty Start Date End Date Meme Steel MD [address] [place] [address] [place] [address] PCP - General Pediatrics 06/05/18 04/25/22 No Pcp, Pcp PCP - General 06/08/22 07/19/22 Guadalupe Mcbride MD PCP - General Family Medicine 07/20/22 11/01/23 Sena Dominguez PA [address] [place] [address] [place] [address] PCP - BRADY Physician Hot Car Charger 11/02/23 Levy Barry MD [address] [place] [address] [place] [address] PCP - General Family Medicine 12/20/23 documented as of this encounter
--- OUTSIDE RECORDS SUMMARY | 2025-07-28 14:38 | XMS_ITS | Encounter Summary ---
Author Organization [facility] work ([facility]) Address [address] [place] [address] Care Team Providers Care Floral Assistant Name Role Phone Meme Steel MD Primary Care Provider [phone] Pcp, Pcp Primary Care Provider Unavailabl Guadalupe Bardales MD Primary Care Provider [phone] Sena Dominguez Unavailable Levy Barry MD Primary Care Provider Unavailab le Source Comments The information that you have received may contain highly confidential and/or federally protected health information. This information has been disclosed to you from records protected by [facility]. The law prohibits you [...] information in error, please contact the sender immediately.[facility] ([facility]) Encounter Details Date Type Department Care Team (Late st Contact Info) Description 11/07/2005 Historical Note [facility] [employer] System Devyn Vásquez MD [address] [place] [address] [phone] Social History Tobacco Use Types Packs/Day Years [...] CARRILLO - [facility] [address] [facility] [address] [place] [phone] Brenda Clay MD [address] [facility] [address] [place] [address] 04/15/2026 10:00 AM EDT Office Visit LEATHA [facility] at [facility] [address] [facility] [facility] [address] [place] [address] Sena Dominguez PA [address] [facility] [place] [address] documented as of this encounter Visit Diagnoses Not on filedocumented in this encounter Care Teams Floral Assistant Relationship Specialty Start Date End Date Meme Steel MD [address] [place] [address] 105 [place] [address] PCP - General Pediatrics 06/05/18 04/25/22 No Pcp, Pcp PCP - General 06/08/22 07/19/22 Guadalupe Mcbride MD PCP - General Family Medicine 07/20/22 11/01/23 Sena Dominguez PA [address] [place] [address] [place] [address] PCP - BRADY Physician Exchange Trouble Shooter 11/02/23 Levy Barry MD [address] [place] [address] [place] [address] PCP - General Family Medicine 12/20/23 documented as of this encounter
--- OUTSIDE RECORDS SUMMARY | 2025-07-28 14:38 | XMS_ITS | Encounter Summary ---
Author Organization [facility] work ([facility]) Address [address] [place] [address] Care Team Providers Care Case Coordinator Name Role Phone Meme Steel MD Primary Care Provider [phone] Pcp, Pcp Primary Care Provider Unavailabl Guadalupe Bardales MD Primary Care Provider [phone] Sena Dominguez Unavailable [phone] Levy Barry MD Primary Care Provider Unavailab le Source Comments The information that you have received may contain highly confidential and/or federally protected health information. This information has been disclosed to you from records protected by [facility]. The law prohibits you from [...] error, please contact the sender immediately.[facility] ([facility]) Encounter Details Date Type Department Care Team (Late st Contact Info) Description 10/31/2017 Historical Note [facility] [employer] System Devyn Vásquez MD [address] [place] [address] [phone] Social History Tobacco Use Types Packs/Day Years [...] [facility] [address] [facility] [address] [place] [phone] Brenda Clay MD [address] [facility] [address] [place] [address] 04/15/2026 10:00 AM EDT Office Visit LE[facility]HA [facility] at [facility] + [facility] [address] [facility] [address] [place] [address] Sena Dominguez PA [address] [facility] [place] [address] documented as of this encounter Visit Diagnoses Not on filedocumented in this encounter Care Teams Case Coordinator Relationship Specialty Start Date End Date Meme Steel MD [address] [place] [address] 105 [place] [address] PCP - General Pediatrics 06/05/18 04/25/22 No Pcp, Pcp PCP - General 06/08/22 07/19/22 Guadalupe Mcbride MD PCP - General Family Medicine 07/20/22 11/01/23 Sena Dominguez PA [address] [place] [address] [place] [address] PCP - BRADY Physician Market Developer 11/02/23 Levy Barry MD [address] [place] [address] [place] [address] PCP - General Family Medicine 12/20/23 documented as of this encounter
--- OUTSIDE RECORDS SUMMARY | 2025-07-28 14:38 | XMS_ITS | Encounter Summary ---
Author Organization [facility] work ([facility]) Address [address] [place] [address] Care Team Providers Care Precision Lens Grinder Name Role Phone Meme Steel MD Primary Care Provider [phone] Pcp, Pcp Primary Care Provider Unavailabl Guadalupe Bardales MD Primary Care Provider [phone] Sena Dominguez Unavailable [phone] Levy Barry MD Primary Care Provider Unavailab le Source Comments The information that you have received may contain highly confidential and/or federally protected health information. This information has been disclosed to you from records protected by [facility]. The law prohibits you from making any [...] information in error, please contact the sender immediately.[facility] ([facility]) Encounter Details Date Type Department Care Team (Late st Contact Info) Description 05/22/2012 Historical Note [facility] [employer] System Devyn Vásquez MD [address] [place] [address] [phone] Social History Tobacco Use Types Packs/Day Years [...] CARRILLO - [facility] [address] [facility] [address] [place] [phone] Brenda Clay MD [address] [facility] [address] [place] [address] 04/15/2026 10:00 AM EDT Office Visit [facility]HA [facility] at [facility] + [facility] [address] [facility] [address] [place] [address] Sena Dominguez PA [address] [facility] [place] [address] documented as of this encounter Visit Diagnoses Not on filedocumented in this encounter Care Teams Precision Lens Grinder Relationship Specialty Start Date End Date Meme Steel MD [address] [place] [address] 105 [place] [address] PCP - General Pediatrics 06/05/18 04/25/22 No Pcp, Pcp PCP - General 06/08/22 07/19/22 Guadalupe Mcbride MD PCP - General Family Medicine 07/20/22 11/01/23 Sena Dominguez PA [address] [place] [address] [place] [address] PCP - BRADY Physician Educational Resource Center Teacher 11/02/23 Levy Barry MD [address] [place] [address] [place] [address] PCP - General Family Medicine 12/20/23 documented as of this encounter
--- OUTSIDE RECORDS SUMMARY | 2025-07-28 14:38 | XMS_ITS | Encounter Summary ---
Author Organization [facility] work ([facility]) Address [address] [place] [address] Care Team Providers Care Wash Box Operator Name Role Phone Meme Steel MD Primary Care Provider [phone] Pcp, Pcp Primary Care Provider Unavailabl Guadalupe Bardales MD Primary Care Provider [phone] Sena Dominguez Unavailable [phone] eLvy Barry MD Primary Care Provider Unavailab le Source Comments The information that you have received may contain highly confidential and/or federally protected health information. This information has been disclosed to you from records protected by [facility]. The law prohibits you [...] sender immediately.[facility] ([facility]) Encounter Details Date Type Department Care Team (Late st Contact Info) Description 01/13/2006 Historical Note [facility] Forensic Logic System Devyn Vásquez MD [address] [place] [address] [phone] Social History Tobacco Use Types Packs/Day Years [...] CARRILLO - [facility] [address] [facility] [address] [place] [phone] Brenda Clay MD [address] [facility] [address] [place] [address] 04/15/2026 10:00 AM EDT Office Visit [facility]HA [facility] at [facility] + [facility] [address] [facility] [address] [place] [address] Sena Dominguez PA [address] [facility] [place] [address] documented as of this encounter Visit Diagnoses Not on filedocumented in this encounter Care Teams Wash Box Operator Relationship Specialty Start Date End Date Meme Steel MD [address] [place] [address] 105 [place] [address] PCP - General Pediatrics 06/05/18 04/25/22 No Pcp, Pcp PCP - General 06/08/22 07/19/22 Guadalupe Mcbride MD PCP - General Family Medicine 07/20/22 11/01/23 Sena Dominguez PA [address] [place] [address] [place] [address] PCP - BRADY Physician Retail Bakery Manager 11/02/23 Levy Barry MD [address] [place] [address] [place] [address] PCP - General Family Medicine 12/20/23 documented as of this encounter
--- OUTSIDE RECORDS SUMMARY | 2025-07-28 14:38 | XMS_ITS | Encounter Summary ---
Author Organization [facility] work ([facility]) Address [address] [place] [address] Care Team Providers Care Railroad Carman Name Role Phone Meme Steel MD Primary Care Provider [phone] No Pcp, Pcp Primary Care Provider Unavailabl Guadalupe Bardales MD Primary Care Provider [phone] Sena Dominguez Unavailable [phone] Levy Barry MD Primary Care Provider Unavailab le Source Comments The information that you have received may contain highly confidential and/or federally protected health information. This information has been disclosed to you from records protected by [facility]. The law prohibits you from [...] Contact Info) Description 02/08/2006 Historical Note [facility] [employer] System Devyn Vásquez MD [address] [place] [address] [phone] Social History Tobacco Use Types Packs/Day Years [...] - [facility] [address] [facility] [address] [place] [phone] Brenda Clay MD [address] [facility] [address] [place] [address] 04/15/2026 10:00 AM EDT Office Visit LEATHA Primary [facility] at [facility] + [facility] [address] [facility] [address] [place] [address] Sena Dominguez PA [address] [facility] [place] [address] documented as of this encounter Visit Diagnoses Not on filedocumented in this encounter Care Teams Railroad Carman Relationship Specialty Start Date End Date Meme Steel MD [address] [place] [address] 105 [place] [address] PCP - General Pediatrics 06/05/18 04/25/22 No Pcp, Pcp PCP - General 06/08/22 07/19/22 Guadalupe Mcbride MD PCP - General Family Medicine 07/20/22 11/01/23 Sena Dominguez PA [address] [place] [address] [place] [address] PCP - BRADY Physician Status Controller 11/02/23 Levy Barry MD [address] [place] [address] [place] [address] PCP - General Family Medicine 12/20/23 documented as of this encounter
--- OUTSIDE RECORDS SUMMARY | 2025-07-28 14:38 | XMS_ITS | Encounter Summary ---
Author Organization [facility] work ([facility]) Address [address] [place] [address] Care Team Providers Care Rn Transition Name Role Phone Meme Steel MD Primary Care Provider [phone] Pcp, Pcp Primary Care Provider Unavailabl Guadalupe Bardales MD Primary Care Provider [phone] Sena Dominguez Unavailable [phone] Levy Barry MD Primary Care Provider Unavailab le Source Comments The information that you have received may contain highly confidential and/or federally protected health information. This information has been disclosed to you from records protected by [facility]. The law prohibits you [...] error, please contact the sender immediately.[facility] ([facility]) Encounter Details Date Type Department Care Team (Late st Contact Info) Description 05/24/2012 Historical Note [facility] In Flow System Devyn Vásquez MD [address] [place] [address] [phone] Social History Tobacco Use Types Packs/Day Years [...] LEATHA CARRILLO - [facility] [address] [facility] [address] [place] [phone] Brenda Clay MD [address] [facility] [address] [place] [address] 04/15/2026 10:00 AM EDT Office Visit LEATHA [facility] at [facility] + [facility] [address] [facility] [address] [place] [address] Sena Dominguez PA [address] [facility] [place] [address] documented as of this encounter Visit Diagnoses Not on filedocumented in this encounter Care Teams Rn Transition Relationship Specialty Start Date End Date Meme Steel MD [address] [place] [address] 105 [place] [address] PCP - General Pediatrics 06/05/18 04/25/22 No Pcp, Pcp PCP - General 06/08/22 07/19/22 Guadalupe Mcbride MD PCP - General Family Medicine 07/20/22 11/01/23 Sena Dominguez PA [address] [place] [address] [place] [address] PCP - BRADY Physician Staffing Assistant 11/02/23 Levy Barry MD [address] [place] [address] [place] [address] PCP - General Family Medicine 12/20/23 documented as of this encounter
--- OUTSIDE RECORDS SUMMARY | 2025-07-28 14:38 | XMS_ITS | Encounter Summary ---
Author Organization [facility] work ([facility]) Address [address] [facility] [address] [place] [address] Care Team Providers Care Laundrette Owner Name Role Phone Meme Steel MD Primary Care Provider [phone] Pcp, Pcp Primary Care Provider Unavailabl Guadalupe Bardales MD Primary Care Provider [phone] Sena Dominguez Unavailable [phone] Levy Barry MD Primary Care Provider Unavailab le Source Comments The information that you have received may contain highly confidential and/or federally protected health information. This information has been disclosed to you from records protected by [facility]. The law prohibits [...] please contact the sender immediately.[facility] ([facility]) Encounter Details Date Type Department Care Team (Late st Contact Info) Description 04/14/2011 Historical Note [facility] appiris System Devyn Vásquez MD [address] [place] [address] [phone] Social History Tobacco Use Types Packs/Day Years [...] Visit LEATHA CARRILLO - [facility] at [facility] [address] [facility] [address] [place] [phone] Brenda Clay MD [address] [facility] [address] [place] [address] 04/15/2026 10:00 AM EDT Office Visit LEATHA [facility] at [facility] + [facility] [address] [facility] [address] [place] [address] Sena Dominguez PA [address] [facility] [place] [address] documented as of this encounter Visit Diagnoses Not on filedocumented in this encounter Care Teams Laundrette Owner Relationship Specialty Start Date End Date Meme Steel MD [address] [place] [address] 105 [place] [address] PCP - General Pediatrics 06/05/18 04/25/22 No Pcp, Pcp PCP - General 06/08/22 07/19/22 Guadalupe Mcbride MD PCP - General Family Medicine 07/20/22 11/01/23 Sena Dominguez PA [address] [place] [address] [place] [address] PCP - BRADY Physician Supervisor Heat Treating 11/02/23 Levy Barry MD [address] [place] [address] [place] [address] PCP - General Family Medicine 12/20/23 documented as of this encounter
--- OUTSIDE RECORDS SUMMARY | 2025-07-28 14:38 | XMS_ITS | Encounter Summary ---
Author Organization [facility] work ([facility]) Address [address] [place] [address] Care Team Providers Care Humanities Department Chair Name Role Phone Meme Steel MD Primary Care Provider [phone] Pcp, Pcp Primary Care Provider Unavailabl Guadalupe Bardales MD Primary Care Provider [phone] Sena Dominguez Unavailable [phone] Levy Barry MD Primary Care Provider Unavailab le Source Comments The information that you have received may contain highly confidential and/or federally protected health information. This information has been disclosed to you from records protected by [facility]. The law prohibits you [...] immediately.[facility] ([facility]) Encounter Details Date Type Department Care Team (Late st Contact Info) Description 05/21/2012 Historical Note [facility] Modern Feed System Devyn Vásquez MD [address] [place] [address] [phone] Social History Tobacco Use Types Packs/Day Years [...] LEATHA CARRILLO - [facility] [address] [facility] [address] [place] [phone] Brenda Clay MD [address] [facility] [address] [place] [address] 04/15/2026 10:00 AM EDT Office Visit LEATHA Primary [facility] at [facility] + [facility] [address] [facility] [address] [place] [address] Sena Dominguez PA [address] [facility] [place] [address] documented as of this encounter Visit Diagnoses Not on filedocumented in this encounter Care Teams Humanities Department Chair Relationship Specialty Start Date End Date Meme Steel MD [address] [place] [address] 105 [place] [address] PCP - General Pediatrics 06/05/18 04/25/22 No Pcp, Pcp PCP - General 06/08/22 07/19/22 Guadalupe Mcbride MD PCP - General Family Medicine 07/20/22 11/01/23 Sena Dominguez PA [address] [place] [address] [place] [address] PCP - BRADY Physician Field Marketing Lead 11/02/23 Levy Barry MD [address] [place] [address] [place] [address] PCP - General Family Medicine 12/20/23 documented as of this encounter
--- OUTSIDE RECORDS SUMMARY | 2025-07-28 14:38 | XMS_ITS | Encounter Summary ---
Author Organization [facility] work ([facility]) Address [address] [facility] [address] [place] [address] Care Team Providers Care Picker Feeder Name Role Phone Meme Steel MD Primary Care Provider [phone] Pcp, Pcp Primary Care Provider Unavailabl Guadalupe Bardales MD Primary Care Provider [phone] Sena Dominguez Unavailable Levy Barry MD Primary Care Provider Unavailab le Source Comments The information that you have received may contain highly confidential and/or federally protected health information. This information has been disclosed to you from records protected by [facility]. The law prohibits you from [...] please contact the sender immediately.[facility] ([facility]) Encounter Details Date Type Department Care Team (Late st Contact Info) Description 05/08/2012 Historical Note [facility] The French Cellar System Devyn Vásquez MD [address] [place] [address] [phone] Social History Tobacco Use Types Packs/Day Years [...] Visit LEATHA CARRILLO - [facility] [address] [facility] [address] [place] [phone] Brenda Clay MD [address] [facility] [address] [place] [address] 04/15/2026 10:00 AM EDT Office Visit LEATHA [facility] [address] [facility] [address] [place] [address] Sena Dominguez PA [address] [facility] [place] [address] documented as of this encounter Visit Diagnoses Not on filedocumented in this encounter Care Teams Picker Feeder Relationship Specialty Start Date End Date Meme Steel MD [address] [place] [address] 105 [place] [address] PCP - General Pediatrics 06/05/18 04/25/22 No Pcp, Pcp PCP - General 06/08/22 07/19/22 Guadalupe Mcbride MD PCP - General Family Medicine 07/20/22 11/01/23 Sena Dominguez PA [address] [place] [address] [place] [address] PCP - BRADY Physician Tube Drawer 11/02/23 Levy Barry MD [address] [place] [address] [place] [address] PCP - General Family Medicine 12/20/23 documented as of this encounter
--- OUTSIDE RECORDS SUMMARY | 2025-07-28 14:38 | XMS_ITS | Encounter Summary ---
Author Organization [facility] work ([facility]) Address [address] [place] [address] Care Team Providers Care Travel Manager Name Role Phone Meme Steel MD Primary Care Provider [phone] Pcp, Pcp Primary Care Provider Unavailabl Guadalupe Bardales MD Primary Care Provider [phone] Sena Dominguez Unavailable [phone] Levy Barry MD Primary Care Provider Unavailab le Source Comments The information that you have received may contain highly confidential and/or federally protected health information. This information has been disclosed to you from records protected by [employer]. The law prohibits you from making [...] contact the sender immediately.[facility] ([facility]) Encounter Details Date Type Department Care Team (Late st Contact Info) Description 02/08/2006 Historical Note [facility] Unight System Devyn Vásquez MD [address] [place] [place] [address] [phone] Social History Tobacco Use Types Packs/Day Years [...] LEATHA CARRILLO - [facility] [address] [facility] [address] [place] [phone] Brenda Clay MD [address] [facility] [address] [place] [address] 04/15/2026 10:00 AM EDT Office Visit [facility] [address] [facility] [address] [place] [address] Sena Dominguez PA [address] [facility] [place] [address] documented as of this encounter Visit Diagnoses Not on filedocumented in this encounter Care Teams Travel Manager Relationship Specialty Start Date End Date Meme Steel MD [address] [place] [address] 105 [place] [address] PCP - General Pediatrics 06/05/18 04/25/22 No Pcp, Pcp PCP - General 06/08/22 07/19/22 Guadalupe Mcbride MD PCP - General Family Medicine 07/20/22 11/01/23 Sena Dominguez PA [address] [place] [address] [place] [address] PCP - BRADY Physician Bilingual Receptionist 11/02/23 Levy Barry MD [address] [place] [address] [place] [address] PCP - General Family Medicine 12/20/23 documented as of this encounter
--- OUTSIDE RECORDS SUMMARY | 2025-07-28 14:38 | XMS_ITS | Encounter Summary ---
Author Organization [facility] work ([facility]) Address [address] [place] [address] Care Team Providers Care Director Pharmacy Services Name Role Phone Meme Steel MD Primary Care Provider [phone] No Pcp, Pcp Primary Care Provider Unavailabl Guadalupe Bardales MD Primary Care Provider [phone] Sena Dominguez Unavailable Levy Barry MD Primary Care Provider Unavailab le Source Comments The information that you have received may contain highly confidential and/or federally protected health information. This information has been disclosed to you from records protected by [facility]. The law prohibits you [...] the sender immediately.[facility] ([facility]) Encounter Details Date Type Department Care Team (Late st Contact Info) Description 01/23/2006 Historical Note [facility] MOD Systems System Devyn Vásquez MD [address] [place] [address] [phone] Social History Tobacco Use Types Packs/Day Years [...] CARRILLO - [facility] [address] [facility] [address] [place] [phone] Brenda Clay MD [address] [facility] [address] [place] [address] 04/15/2026 10:00 AM EDT Office Visit [facility] [address] [facility] [address] [place] [address] Sena Dominguez PA [address] [facility] [place] [address] documented as of this encounter Visit Diagnoses Not on filedocumented in this encounter Care Teams Director Pharmacy Services Relationship Specialty Start Date End Date Meme Steel MD [address] [place] [address] 105 [place] [address] PCP - General Pediatrics 06/05/18 04/25/22 No Pcp, Pcp PCP - General 06/08/22 07/19/22 Guadalupe Mcbride MD PCP - General Family Medicine 07/20/22 11/01/23 Sena Dominguez PA [address] [place] [address] [place] [address] PCP - BRADY Physician Plant Engineering Supervisor 11/02/23 Levy Barry MD [address] [place] [address] [place] [address] PCP - General Family Medicine 12/20/23 documented as of this encounter
--- OUTSIDE RECORDS SUMMARY | 2025-07-28 14:38 | XMS_ITS | Encounter Summary ---
Author Organization [facility] work ([facility]) Address [address] [place] [address] Care Team Providers Care Cage Clerk Name Role Phone Meme Steel MD Primary Care Provider [phone] Pcp, Pcp Primary Care Provider Unavailabl Guadalupe Bardales MD Primary Care Provider Sena Dominguez Unavailable [phone] Levy Barry MD Primary Care Provider Unavailab le Source Comments The information that you have received may contain highly confidential and/or federally protected health information. This information has been disclosed to you from records protected by [facility]. The law prohibits you from making [...] Contact Info) Description 02/08/2006 Historical Note [facility] [employer] System Devyn Vásquez MD [address] [place] [address] [phone] Social History Tobacco Use Types Packs/Day Years [...] Visit LEATHA CARRILLO - [facility] [address] [facility] [address] [place] [phone] Brenda Clay MD [address] [facility] [address] [place] [phone] 04/15/2026 10:00 AM EDT Office Visit LEATHA [facility] at [facility] + [facility] [address] [facility] [address] [place] [address] Sena Dominguez PA [address] [facility] [place] [address] documented as of this encounter Visit Diagnoses Not on filedocumented in this encounter Care Teams Cage Clerk Relationship Specialty Start Date End Date Meme Steel MD [address] [place] [address] 105 [place] [address] PCP - General Pediatrics 06/05/18 04/25/22 No Pcp, Pcp PCP - General 06/08/22 07/19/22 Guadalupe Mcbride MD PCP - General Family Medicine 07/20/22 11/01/23 Sena Dominguez PA [address] [place] [address] [place] [address] PCP - BRADY Physician Boot Liner Maker 11/02/23 Levy Barry MD [address] [place] [address] [place] [address] PCP - General Family Medicine 12/20/23 documented as of this encounter
--- OUTSIDE RECORDS SUMMARY | 2025-07-28 14:38 | XMS_ITS | Encounter Summary ---
Author Organization [facility] work ([facility]) Address [address] [place] [address] Care Team Providers Care Internet Database Specialist Name Role Phone Meme Steel MD Primary Care Provider [phone] Pcp, Pcp Primary Care Provider Unavailabl Guadalupe Bardales MD Primary Care Provider [phone] Sena Dominguez Unavailable [phone] Levy Barry MD Primary Care Provider Unavailab le Source Comments The information that you have received may contain highly confidential and/or federally protected health information. This information has been disclosed to you from records protected by [employer] [facility]. The law prohibits you [...] contact the sender immediately.[facility] ([facility]) Encounter Details Date Type Department Care Team (Late st Contact Info) Description 02/08/2006 Historical Note [facility] [employer] System Devyn Vásquez MD [address] [place] [address] [phone] Social History Tobacco Use Types Packs/Day Years [...] Visit LEATHA CARRILLO - [facility] [address] [facility] [address] [place] [phone] Brenda Clay MD [address] [facility] [address] [place] [address] 04/15/2026 10:00 AM EDT Office Visit LEATHA [facility] at [facility] + [facility] [address] [facility] [address] [place] [address] Sena Dominguez PA [address] [facility] [place] [address] documented as of this encounter Visit Diagnoses Not on filedocumented in this encounter Care Teams Internet Database Specialist Relationship Specialty Start Date End Date Meme Steel MD [address] [place] [address] 105 [place] [address] PCP - General Pediatrics 06/05/18 04/25/22 No Pcp, Pcp PCP - General 06/08/22 07/19/22 Guadalupe Mcbride MD PCP - General Family Medicine 07/20/22 11/01/23 Sena Dominguez PA [address] [place] [address] [place] [address] PCP - BRADY Physician Colon And Rectal Surgeon 11/02/23 Levy Barry MD [address] [place] [address] [place] [address] PCP - General Family Medicine 12/20/23 documented as of this encounter
--- OUTSIDE RECORDS SUMMARY | 2025-07-28 14:39 | XMS_ITS | Encounter Summary ---
Author Organization [facility] work ([facility]) Address [address] [place] [address] Care Team Providers Care Inclinometer Tester Name Role Phone Meme Steel MD Primary Care Provider [phone] Pcp, Pcp Primary Care Provider Unavailabl Guadalupe Bardales MD Primary Care Provider [phone] Sena Dominguez Unavailable [phone] Levy Barry MD Primary Care Provider Unavailab le Source Comments The information that you have received may contain highly confidential and/or federally protected health information. This information has been disclosed to you from records protected by [facility]. The law prohibits you [...] sender immediately.[facility] ([facility]) Encounter Details Date Type Department Care Team (Late st Contact Info) Description 03/09/2017 Historical Note [facility] Let it Wave System Devyn Vásquez MD [address] [place] [address] [phone] Social History Tobacco Use Types Packs/Day Years [...] [facility] [address] [facility] [address] [place] [phone] Brenda Clay MD [address] [facility] [address] [place] [address] 04/15/2026 10:00 AM EDT Office Visit LEATHA [facility] at [facility] + [facility] [address] [facility] [address] [place] [address] Sena Dominguez PA [address] [facility] [place] [address] documented as of this encounter Visit Diagnoses Not on filedocumented in this encounter Care Teams Inclinometer Tester Relationship Specialty Start Date End Date Meme Steel MD [address] [place] [address] 105 [place] [address] PCP - General Pediatrics 06/05/18 04/25/22 No Pcp, Pcp PCP - General 06/08/22 07/19/22 Guadalupe Mcbride MD PCP - General Family Medicine 07/20/22 11/01/23 Sena Dominguez PA [address] [place] [address] [place] [address] PCP - BRADY Physician Electric Golf Cart Repairers 11/02/23 Levy Barry MD [address] [place] [address] [place] [address] PCP - General Family Medicine 12/20/23 documented as of this encounter
--- OUTSIDE RECORDS SUMMARY | 2025-07-28 14:39 | XMS_ITS | Encounter Summary ---
Author Organization [facility] work ([facility]) Address [address] [place] [address] Care Team Providers Care Laser Beam Machine Operator Name Role Phone Meme Steel MD Primary Care Provider [phone] Pcp, Pcp Primary Care Provider Unavailabl Guadalupe Bardales MD Primary Care Provider [phone] Sena Dominguez Unavailable [phone] Levy Barry MD Primary Care Provider Unavailab le Source Comments The information that you have received may contain highly confidential and/or federally protected health information. This information has been disclosed to you from records protected by [facility]. The law prohibits you from [...] sender immediately.[facility] ([facility]) Encounter Details Date Type Department Care Team (Late st Contact Info) Description 10/18/2005 Historical Note [facility] [employer]Tel System Devyn Vásquez MD [address] [place] [address] [phone] Social History Tobacco Use Types Packs/Day Years [...] LEATHA CARRILLO - [facility] [address] [facility] [address] [place] [phone] Brenda Clay MD [address] [facility] [address] [place] [address] 04/15/2026 10:00 AM EDT Office Visit LE[facility]HA [facility] at [facility] + [facility] [address] [facility] [address] [place] [address] Sena Dominguez PA [address] [facility] [place] [address] documented as of this encounter Visit Diagnoses Not on filedocumented in this encounter Care Teams Laser Beam Machine Operator Relationship Specialty Start Date End Date Meme Steel MD [address] [place] [address] 105 [place] [address] PCP - General Pediatrics 06/05/18 04/25/22 No Pcp, Pcp PCP - General 06/08/22 07/19/22 Guadalupe Mcbride MD PCP - General Family Medicine 07/20/22 11/01/23 Sena Dominguez PA [address] [place] [address] [place] [address] PCP - BRADY Physician Check Processor 11/02/23 Levy Barry MD [address] [place] [address] [place] [address] PCP - General Family Medicine 12/20/23 documented as of this encounter
--- OUTSIDE RECORDS SUMMARY | 2025-07-28 14:39 | XMS_ITS | Encounter Summary ---
Author Organization [facility] work ([facility]) Address [address] [place] [address] Care Team Providers Care Pediatric Intensive Physician Name Role Phone Meme Steel MD Primary Care Provider [phone] Pcp, Pcp Primary Care Provider Unavailabl Guadalupe Bardales MD Primary Care Provider [phone] Sena Dominguez Unavailable [phone] Levy Barry MD Primary Care Provider Unavailab le Source Comments The information that you have received may contain highly confidential and/or federally protected health information. This information has been disclosed to you from records protected by [employer] [facility]. The law prohibits you [...] please contact the sender immediately.[facility] ([facility]) Encounter Details Date Type Department Care Team (Late st Contact Info) Description 09/22/2011 Historical Note [facility] [employer] System Devyn Vásquez MD [address] [place] [address] [phone] Social History Tobacco Use Types Packs/Day Years [...] EST Office Visit LEATHA CARRILLO - [facility] [address] [facility] [address] [place] [phone] Brenda Clay MD [address] [facility] [address] [place] [address] 04/15/2026 10:00 AM EDT Office Visit LEATHA [facility] at [facility] [address] [facility] [address] [place] [address] Sena Dominguez PA [address] [facility] [place] [address] documented as of this encounter Visit Diagnoses Not on filedocumented in this encounter Care Teams Pediatric Intensive Physician Relationship Specialty Start Date End Date Meme Steel MD [address] [place] [address] 105 [place] [address] PCP - General Pediatrics 06/05/18 04/25/22 No Pcp, Pcp PCP - General 06/08/22 07/19/22 Guadalupe Mcbride MD PCP - General Family Medicine 07/20/22 11/01/23 Sena Dominguez PA [address] [place] [address] [place] [address] PCP - BRADY Physician Grinder Set Up Operator Universal 11/02/23 Levy Barry MD [address] [place] [address] [place] [address] PCP - General Family Medicine 12/20/23 documented as of this encounter
--- OUTSIDE RECORDS SUMMARY | 2025-07-28 14:39 | XMS_ITS | Encounter Summary ---
Author Organization [facility] work ([facility]) Address [address] [place] [address] Care Team Providers Care Message Broker Developer Name Role Phone Meme Steel MD Primary Care Provider [phone] Pcp, Pcp Primary Care Provider Unavailabl Guadalupe Bardales MD Primary Care Provider Sena Dominguez Unavailable [phone] Levy Barry MD Primary Care Provider Unavailab le Source Comments The information that you have received may contain highly confidential and/or federally protected health information. This information has been disclosed to you from records protected by [facility]. The law prohibits [...] please contact the sender immediately.[facility] ([facility]) Encounter Details Date Type Department Care Team (Late st Contact Info) Description 01/06/2006 Historical Note [facility] [employer] [facility] Devyn Vásquez MD [address] [place] [address] [phone] Social History Tobacco Use Types Packs/Day Years [...] CARRILLO - [facility] [address] [facility] [address] [place] [phone] Brenda Clay MD [address] [facility] [address] [place] [address] 04/15/2026 10:00 AM EDT Office Visit LEATHA [facility] at [facility] + [facility] [address] [facility] [address] [place] [address] Sena Dominguez PA [address] [facility] [place] [address] documented as of this encounter Visit Diagnoses Not on filedocumented in this encounter Care Teams Message Broker Developer Relationship Specialty Start Date End Date Meme Steel MD [address] [place] [address] 105 [place] [address] PCP - General Pediatrics 06/05/18 04/25/22 No Pcp, Pcp PCP - General 06/08/22 07/19/22 Guadalupe Mcbride MD PCP - General Family Medicine 07/20/22 11/01/23 Sena Dominguez PA [address] [place] [address] [place] [address] PCP - BRADY Physician Vegetable Trimmer 11/02/23 Levy Barry MD [address] [place] [address] [place] [address] PCP - General Family Medicine 12/20/23 documented as of this encounter
--- OUTSIDE RECORDS SUMMARY | 2025-07-28 14:39 | XMS_ITS | Encounter Summary ---
Author Organization [facility] work ([facility]) Address [address] [place] [address] Care Team Providers Care Supervisor Wire Rope Fabrication Name Role Phone Meme Steel MD Primary Care Provider [phone] Pcp, Pcp Primary Care Provider Unavailabl Guadalupe Bardales MD Primary Care Provider [phone] Sena Dominguez Unavailable Levy Barry MD Primary Care Provider Unavailab le Source Comments The information that you have received may contain highly confidential and/or federally protected health information. This information has been disclosed to you from records protected by [facility]. The law prohibits you from [...] error, please contact the sender immediately.[facility] ([facility]) Encounter Details Date Type Department Care Team (Late st Contact Info) Description 12/15/2005 Historical Note [facility] [employer] System Devyn Vásquez MD [address] [place] [address] [phone] Social History Tobacco Use Types Packs/Day Years [...] - [facility] [address] [facility] [address] [place] [phone] Brenda Clay MD [address] [facility] [address] [place] [phone] 04/15/2026 10:00 AM EDT Office Visit LEATHA [facility] [address] [facility] [address] [place] [address] Sena Dominguez PA [address] [facility] [place] [address] documented as of this encounter Visit Diagnoses Not on filedocumented in this encounter Care Teams Supervisor Wire Rope Fabrication Relationship Specialty Start Date End Date Meme Steel MD [address] [place] [address] 105 [place] [address] PCP - General Pediatrics 06/05/18 04/25/22 No Pcp, Pcp PCP - General 06/08/22 07/19/22 Guadalupe Mcbride MD PCP - General Family Medicine 07/20/22 11/01/23 Sena Dominguez PA [address] [place] [address] [place] [address] PCP - BRADY Physician Cyber Operator 11/02/23 Levy Barry MD [address] [place] [address] [place] [address] PCP - General Family Medicine 12/20/23 documented as of this encounter
--- OUTSIDE RECORDS SUMMARY | 2025-07-28 14:39 | XMS_ITS | Encounter Summary ---
Author Organization [facility] work ([facility]) Address [address] [place] [address] Care Team Providers Care Transcriber Name Role Phone Meme Steel MD Primary Care Provider [phone] Pcp, Pcp Primary Care Provider Unavailabl Guadalupe Bardales MD Primary Care Provider [phone] Sena Dominguez Unavailable [phone] Levy Barry MD Primary Care Provider Unavailab le Source Comments The information that you have received may contain highly confidential and/or federally protected health information. This information has been disclosed to you from records protected by [facility]. The law prohibits you from [...] contact the sender immediately.[facility] ([facility]) Encounter Details Date Type Department Care Team (Late st Contact Info) Description 08/10/2009 Historical Note [facility] [employer] System Devyn Vásquez MD [address] [place] [address] [phone] Social History Tobacco Use Types Packs/Day Years [...] CARRILLO - [facility] [address] [facility] [address] [place] [phone] Brenda Clay MD [address] [facility] [address] [place] [address] 04/15/2026 10:00 AM EDT Office Visit LEATHA [facility] at [facility] + [facility] [address] [facility] [address] [place] [address] Sena Dominguez PA [address] [facility] [place] [address] documented as of this encounter Visit Diagnoses Not on filedocumented in this encounter Care Teams Transcriber Relationship Specialty Start Date End Date Meme Steel MD [address] [place] [address] 105 [place] [address] PCP - General Pediatrics 06/05/18 04/25/22 No Pcp, Pcp PCP - General 06/08/22 07/19/22 Guadalupe Mcbride MD PCP - General Family Medicine 07/20/22 11/01/23 Sena Dominguez PA [address] [place] [address] [place] [address] PCP - BRADY Physician Switchboard Wire Worker Helper 11/02/23 Levy Barry MD [address] [place] [address] [place] [address] PCP - General Family Medicine 12/20/23 documented as of this encounter
--- OUTSIDE RECORDS SUMMARY | 2025-07-28 14:39 | XMS_ITS | Encounter Summary ---
Author Organization [facility] work ([facility]) Address [address] [place] [address] Care Team Providers Care Account Specialist Name Role Phone Meme Steel MD Primary Care Provider [phone] Pcp, Pcp Primary Care Provider Unavailabl Guadalupe Bardales MD Primary Care Provider [phone] Sena Dominguez Unavailable [phone] Levy Barry MD Primary Care Provider Unavailab le Source Comments The information that you have received may contain highly confidential and/or federally protected health information. This information has been disclosed to you from records protected by [facility]. The law prohibits you from making [...] error, please contact the sender immediately.[facility] ([facility]) Encounter Details Date Type Department Care Team (Late st Contact Info) Description 03/09/2017 Historical Note SVM[facility] Monkey [employer] System Devyn Vásquez MD [address] [place] [address] [phone] Social History Tobacco Use Types Packs/Day Years [...] LEATHA CARRILLO - [facility] [address] [facility] [address] [place] [phone] Brenda Clay MD [address] [facility] [address] [place] [address] 04/15/2026 10:00 AM EDT Office Visit [facility] + [facility] [address] [facility] [address] [place] [address] Sena Dominguez PA [address] [facility] [place] [address] documented as of this encounter Visit Diagnoses Not on filedocumented in this encounter Care Teams Account Specialist Relationship Specialty Start Date End Date Meme Steel MD [address] [place] [address] [place] [address] PCP - General Pediatrics 06/05/18 04/25/22 No Pcp, Pcp PCP - General 06/08/22 07/19/22 Guadalupe Mcbride MD PCP - General Family Medicine 07/20/22 11/01/23 Sena Dominguez PA [address] [place] [address] [place] [address] PCP - BRADY Physician Graphotype Operator 11/02/23 Levy Barry MD [address] [place] [address] [place] [address] PCP - General Family Medicine 12/20/23 documented as of this encounter
--- OUTSIDE RECORDS SUMMARY | 2025-07-28 14:39 | XMS_ITS | Encounter Summary ---
Author Organization [facility] work ([facility]) Address [address] [place] [address] Care Team Providers Care Cytology Supervisor Name Role Phone Meme Steel MD Primary Care Provider [phone] Pcp, Pcp Primary Care Provider Unavailabl Guadalupe Bardaels MD Primary Care Provider [phone] Sena Dominguez Unavailable [phone] Levy Barry MD Primary Care Provider Unavailab le Source Comments The information that you have received may contain highly confidential and/or federally protected health information. This information has been disclosed to you from records protected by [facility]. The law prohibits you from [...] sender immediately.[facility] ([facility]) Encounter Details Date Type Department Care Team (Late st Contact Info) Description 01/16/2017 Historical Note SVMG Xola System Devyn Vásquez MD [address] [place] [address] [phone] Social History Tobacco Use Types Packs/Day Years [...] Visit LEATHA CARRILLO - [facility] [address] [facility] [address] [place] [phone] Brenda Clay MD [address] [facility] [address] [place] [address] 04/15/2026 10:00 AM EDT Office Visit [facility] at [facility] [address] [facility] [address] [place] [address] Sena Dominguez PA [address] [facility] [place] [address] documented as of this encounter Visit Diagnoses Not on filedocumented in this encounter Care Teams Cytology Supervisor Relationship Specialty Start Date End Date Meme Steel MD [address] [place] [address] 105 [place] [address] PCP - General Pediatrics 06/05/18 04/25/22 No Pcp, Pcp PCP - General 06/08/22 07/19/22 Guadalupe Mcbride MD PCP - General Family Medicine 07/20/22 11/01/23 Sena Dominguez PA [address] [place] [address] [place] [address] PCP - BRADY Physician Jailkeeper 11/02/23 Levy Barry MD [address] [place] [address] [place] [address] PCP - General Family Medicine 12/20/23 documented as of this encounter
--- OUTSIDE RECORDS SUMMARY | 2025-07-28 14:39 | XMS_ITS | Encounter Summary ---
Author Organization [facility] work ([facility]) Address [address] [place] [address] Care Team Providers Care Toolroom Clerk Name Role Phone Meme Steel MD Primary Care Provider [phone] Pcp, Pcp Primary Care Provider Unavailabl Guadalupe Bardales MD Primary Care Provider [phone] Sena Dominguez Unavailable [phone] Levy Barry MD Primary Care Provider Unavailab le Source Comments The information that you have received may contain highly confidential and/or federally protected health information. This information has been disclosed to you from records protected by [facility]. The law prohibits you from [...] contact the sender immediately.[facility] ([facility]) Encounter Details Date Type Department Care Team (Late st Contact Info) Description 09/08/2011 Historical Note SVMG [employer] System Devyn Vásquez MD [address] [place] [address] [phone] Social History Tobacco Use Types Packs/Day Years [...] CARRILLO - [facility] [address] [facility] [address] [place] [phone] Brenda Clay MD [address] [facility] [address] [place] [address] 04/15/2026 10:00 AM EDT Office Visit [facility]HA [facility] at [facility] + [facility] [address] [facility] [address] [place] [address] Sena Dominguez PA [address] [facility] [place] [address] documented as of this encounter Visit Diagnoses Not on filedocumented in this encounter Care Teams Toolroom Clerk Relationship Specialty Start Date End Date Meme Stele MD [address] [place] [address] 105 [place] [address] PCP - General Pediatrics 06/05/18 04/25/22 No Pcp, Pcp PCP - General 06/08/22 07/19/22 Guadalupe Mcbride MD PCP - General Family Medicine 07/20/22 11/01/23 Sena Dominguez PA [address] [place] [address] [place] [address] PCP - BRADY Physician Shooter Helper 11/02/23 Levy Barry MD [address] [place] [address] [place] [address] PCP - General Family Medicine 12/20/23 documented as of this encounter
--- OUTSIDE RECORDS SUMMARY | 2025-07-28 14:39 | XMS_ITS | Encounter Summary ---
Author Organization [facility] work ([facility]) Address [address] [place] [address] Care Team Providers Care Last Inserter Name Role Phone Meme Steel MD Primary Care Provider [phone] Pcp, Pcp Primary Care Provider Unavailabl Guadalupe Bardales MD Primary Care Provider [phone] Sena Dominguez Unavailable [phone] Levy Barry MD Primary Care Provider Unavailab le Source Comments The information that you have received may contain highly confidential and/or federally protected health information. This information has been disclosed to you from records protected by [facility]. The law prohibits you [...] please contact the sender immediately.[facility] ([facility]) Encounter Details Date Type Department Care Team (Late st Contact Info) Description 04/12/2011 Historical Note SVMG [employer] System Devyn Vásquez MD [address] [place] [address] [phone] Social History Tobacco Use Types Packs/Day Years [...] LEATHA CARRILLO - [facility] [address] [facility] [address] [place] [phone] Brenda Clay MD [address] [facility] [address] [place] [address] 04/15/2026 10:00 AM EDT Office Visit [facility] [address] [facility] [address] [place] [address] Sena Dominguez PA [address] [facility] [place] [address] documented as of this encounter Visit Diagnoses Not on filedocumented in this encounter Care Teams Last Inserter Relationship Specialty Start Date End Date Meme Steel MD [address] [place] [address] 105 [place] [address] PCP - General Pediatrics 06/05/18 04/25/22 No Pcp, Pcp PCP - General 06/08/22 07/19/22 Guadalupe Mcbride MD PCP - General Family Medicine 07/20/22 11/01/23 Sena Dominguez PA [address] [place] [address] [place] [address] PCP - BRADY Physician In Flight Technician 11/02/23 Levy Barry MD [address] [place] [address] [place] [address] PCP - General Family Medicine 12/20/23 documented as of this encounter
--- OUTSIDE RECORDS SUMMARY | 2025-07-28 14:39 | XMS_ITS | Encounter Summary ---
Author Organization [facility] work ([facility]) Address [address] [place] [address] Care Team Providers Care Radiology Practitioner Assistant Name Role Phone Meme Steel MD Primary Care Provider [phone] Pcp, Pcp Primary Care Provider Unavailabl Guadalupe Bardales MD Primary Care Provider [phone] Sena Dominguez Unavailable [phone] Levy Barry MD Primary Care Provider Unavailab le Source Comments The information that you have received may contain highly confidential and/or federally protected health information. This information has been disclosed to you from records protected by [facility]. The law prohibits you [...] the sender immediately.[facility] ([facility]) Encounter Details Date Type Department Care Team (Late st Contact Info) Description 01/06/2006 Historical Note SVMG Phonezoo Communications System Devyn Vásquez MD [address] [place] [address] [phone] Social History Tobacco Use Types Packs/Day Years [...] LEATHA CARRILLO - [facility] [address] [facility] [address] [place] [phone] Brenad Clay MD [address] [facility] [address] [place] [address] 04/15/2026 10:00 AM EDT Office Visit [facility]HA [facility] + [facility] [address] [facility] [address] [place] [address] Sena Dominguez PA [address] [facility] [place] [address] documented as of this encounter Visit Diagnoses Not on filedocumented in this encounter Care Teams Radiology Practitioner Assistant Relationship Specialty Start Date End Date Meme Steel MD [address] [place] [address] 105 [place] [address] PCP - General Pediatrics 06/05/18 04/25/22 No Pcp, Pcp PCP - General 06/08/22 07/19/22 Guadalupe Mcbride MD PCP - General Family Medicine 07/20/22 11/01/23 Sena Dominguez PA [address] [place] [address] [place] [address] PCP - BRADY Physician Pin Maker 11/02/23 Levy Barry MD [address] [place] [address] [place] [address] PCP - General Family Medicine 12/20/23 documented as of this encounter
--- OUTSIDE RECORDS SUMMARY | 2025-07-28 14:39 | XMS_ITS | Encounter Summary ---
Author Organization [facility] work ([facility]) Address [address] [place] [address] Care Team Providers Care Sales And Production Manager Name Role Phone Meme Steel MD Primary Care Provider No Pcp, Pcp Primary Care Provider Unavailabl Guadalupe Bardales MD Primary Care Provider [phone] Sena Dominguez Unavailable [phone] Levy Barry MD Primary Care Provider Unavailab le Source Comments The information that you have received may contain highly confidential and/or federally protected health information. This information has been disclosed to you from records protected by [facility]. The law prohibits [...] please contact the sender immediately.[facility] ([facility]) Encounter Details Date Type Department Care Team (Late st Contact Info) Description 05/31/2005 Historical Note SVMG Pixate System Devyn Vásquez MD [address] [place] [address] [phone] Social History Tobacco Use Types Packs/Day Years [...] CARRILLO - [facility] [address] [facility] [address] [place] [phone] Brenda Clay MD [address] [facility] [address] [place] [address] 04/15/2026 10:00 AM EDT Office Visit [facility]HA [facility] [address] [facility] [address] [place] [address] Sena Dominguez PA [address] [facility] [place] [address] documented as of this encounter Visit Diagnoses Not on filedocumented in this encounter Care Teams Sales And Production Manager Relationship Specialty Start Date End Date Meme Steel MD [address] [place] [address] 105 [place] [address] PCP - General Pediatrics 06/05/18 04/25/22 No Pcp, Pcp PCP - General 06/08/22 07/19/22 Guadalupe Mcbride MD PCP - General Family Medicine 07/20/22 11/01/23 Sena Dominguez PA [address] [place] [address] [place] [address] PCP - BRADY Physician Recyclable Materials Collector 11/02/23 Levy Barry MD [address] [place] [address] [place] [address] PCP - General Family Medicine 12/20/23 documented as of this encounter
--- OUTSIDE RECORDS SUMMARY | 2025-07-28 14:39 | XMS_ITS | Encounter Summary ---
Author Organization [facility] work ([facility]) Address [address] [place] [address] Care Team Providers Care Rubber Stamps And Dies Supervisor Name Role Phone Meme Steel MD Primary Care Provider [phone] Pcp, Pcp Primary Care Provider Unavailabl Guadalupe Bardales MD Primary Care Provider [phone] Sena Dominguez Unavailable [phone] Levy Barry MD Primary Care Provider Unavailab le Source Comments The information that you have received may contain highly confidential and/or federally protected health information. This information has been disclosed to you from records protected by [facility]. The law prohibits you [...] contact the sender immediately.[facility] ([facility]) Encounter Details Date Type Department Care Team (Late st Contact Info) Description 09/08/2011 Historical Note SVMG Capsule.fm System Devyn Vásquez MD [address] [place] [address] [phone] Social History Tobacco Use Types Packs/Day Years [...] EST Office Visit LEATHA CARRILLO - [facility] [address] [facility] [address] [place] [phone] Brenda Clay MD [address] [employer] [address] [place] [phone] 04/15/2026 10:00 AM EDT Office Visit LE[facility]HA [facility] at [facility] + [facility] [address] [facility] [address] [place] [address] Sena Dominguez PA [address] [facility] [place] [address] documented as of this encounter Visit Diagnoses Not on filedocumented in this encounter Care Teams Rubber Stamps And Dies Supervisor Relationship Specialty Start Date End Date Meme Steel MD [address] [place] [address] 105 [place] [address] PCP - General Pediatrics 06/05/18 04/25/22 No Pcp, Pcp PCP - General 06/08/22 07/19/22 Guadalupe Mcbride MD PCP - General Family Medicine 07/20/22 11/01/23 Sena Dominguez PA [address] [place] [address] [place] [address] PCP - BRADY Physician Excel Expert 11/02/23 Levy Barry MD [address] [place] [address] [place] [address] PCP - General Family Medicine 12/20/23 documented as of this encounter
--- OUTSIDE RECORDS SUMMARY | 2025-07-28 14:39 | XMS_ITS | Encounter Summary ---
Author Organization [facility] work ([facility]) Address [address] [place] [address] Care Team Providers Care Bridge Club Manager Name Role Phone Meme Steel MD Primary Care Provider [phone] Pcp, Pcp Primary Care Provider Unavailabl Guadalupe Bardales MD Primary Care Provider [phone] Sena Dominguez Unavailable [phone] Levy Barry MD Primary Care Provider Unavailab le Source Comments The information that you have received may contain highly confidential and/or federally protected health information. This information has been disclosed to you from records protected by [facility]. The law prohibits [...] the sender immediately.[facility] ([facility]) Encounter Details Date Type Department Care Team (Late st Contact Info) Description 11/03/2005 Historical Note SVMG Santeen [employer] System Devyn Vásquez MD [address] [place] [address] [phone] Social History Tobacco Use Types Packs/Day Years [...] LEATHA CARRILLO - [facility] [address] [facility] [address] [place] [phone] Brenda Clay MD [address] [facility] [address] [place] [address] 04/15/2026 10:00 AM EDT Office Visit LEATHA [facility] at [facility] + [facility] [address] [facility] [address] [place] [address] Sena Dominguez PA [address] [facility] [place] [address] documented as of this encounter Visit Diagnoses Not on filedocumented in this encounter Care Teams Bridge Club Manager Relationship Specialty Start Date End Date Meme Steel MD [address] [place] [address] 105 [place] [address] PCP - General Pediatrics 06/05/18 04/25/22 No Pcp, Pcp PCP - General 06/08/22 07/19/22 Guadalupe Mcbride MD PCP - General Family Medicine 07/20/22 11/01/23 Sena Dominguez PA [address] [place] [address] [place] [address] PCP - BRADY Physician Shoes Salesperson 11/02/23 Levy Barry MD [address] [place] [address] [place] [address] PCP - General Family Medicine 12/20/23 documented as of this encounter
--- OUTSIDE RECORDS SUMMARY | 2025-07-28 14:39 | XMS_ITS | Encounter Summary ---
Author Organization [facility] work ([facility]) Address [address] [facility] [address] [place] [address] Care Team Providers Care Environmental Assistant Name Role Phone Meme Steel MD Primary Care Provider [phone] No Pcp, Pcp Primary Care Provider Unavailabl Guadalupe Bardales MD Primary Care Provider [phone] Sena Dominguez Unavailable [phone] Levy Barry MD Primary Care Provider Unavailab le Source Comments The information that you have received may contain highly confidential and/or federally protected health information. This information has been disclosed to you from records protected by [facility]. The law prohibits you from [...] please contact the sender immediately.[facility] ([facility]) Encounter Details Date Type Department Care Team (Late st Contact Info) Description 10/23/2009 Historical Note SVMG Chimeros System Devyn Vásquez MD [address] [place] [address] [phone] Social History Tobacco Use Types Packs/Day Years [...] LEATHA CARRILLO - [facility] [address] [facility] [address] [place] [phone] Brenda Clay MD [address] [facility] [address] [place] [address] 04/15/2026 10:00 AM EDT Office Visit LEATHA [facility] at [facility] [address] [facility] [address] [place] [address] Sena Dominguez PA [address] [facility] [place] [address] documented as of this encounter Visit Diagnoses Not on filedocumented in this encounter Care Teams Environmental Assistant Relationship Specialty Start Date End Date Meme Steel MD [address] [place] [address] 105 [place] [address] PCP - General Pediatrics 06/05/18 04/25/22 No Pcp, Pcp PCP - General 06/08/22 07/19/22 Guadalupe Mcbirde MD PCP - General Family Medicine 07/20/22 11/01/23 Sena Dominguez PA [address] [place] [address] [place] [address] PCP - BRADY Physician Accreditation Specialist 11/02/23 Levy Barry MD [address] [place] [address] [place] [address] PCP - General Family Medicine 12/20/23 documented as of this encounter
--- OUTSIDE RECORDS SUMMARY | 2025-07-28 14:39 | XMS_ITS | Encounter Summary ---
Author Organization [facility] work ([facility]) Address [address] [place] [address] Care Team Providers Care Abap Developer Name Role Phone Meme Steel MD Primary Care Provider [phone] No Pcp, Pcp Primary Care Provider Unavailabl Guadalupe Bardales MD Primary Care Provider [phone] Sena Dominguez Unavailable [phone] Levy Barry MD Primary Care Provider Unavailab le Source Comments The information that you have received may contain highly confidential and/or federally protected health information. This information has been disclosed to you from records protected by [facility]. The law prohibits you from making [...] contact the sender immediately.[facility] ([facility]) Encounter Details Date Type Department Care Team (Late st Contact Info) Description 05/18/2011 Historical Note [facility]G MacuCLEAR System Devyn Vásquez MD [address] [place] [address] [phone] Social History Tobacco Use Types Packs/Day Years [...] LEATHA CARRILLO - [facility] [address] [facility] [address] [place] [phone] Brenda Clay MD [address] [facility] [address] [place] [address] 04/15/2026 10:00 AM EDT Office Visit LE[facility]HA [facility] at [facility] + [facility] [address] [facility] [address] [place] [address] Sena Dominguez PA [address] [facility] [place] [address] documented as of this encounter Visit Diagnoses Not on filedocumented in this encounter Care Teams Abap Developer Relationship Specialty Start Date End Date Meme Steel MD [address] [place] [address] 105 [place] [address] PCP - General Pediatrics 06/05/18 04/25/22 No Pcp, Pcp PCP - General 06/08/22 07/19/22 Guadalupe Mcbride MD PCP - General Family Medicine 07/20/22 11/01/23 Sena Dominguez PA [address] [place] [address] [place] [address] PCP - BRADY Physician Cork Insulation Setter 11/02/23 Levy Barry MD [address] [place] [address] [place] [address] PCP - General Family Medicine 12/20/23 documented as of this encounter
--- OUTSIDE RECORDS SUMMARY | 2025-07-28 14:39 | XMS_ITS | Encounter Summary ---
Author Organization [facility] work ([facility]) Address [address] [place] [address] Care Team Providers Care Network Systems Engineer Name Role Phone Meme Steel MD Primary Care Provider [phone] Pcp, Pcp Primary Care Provider Unavailabl Guadalupe Bardales MD Primary Care Provider Sena Dominguez Unavailable [phone] Levy Barry MD Primary Care Provider Unavailab le Source Comments The information that you have received may contain highly confidential and/or federally protected health information. This information has been disclosed to you from records protected by [facility]. The law prohibits you from [...] please contact the sender immediately.[facility] ([facility]) Encounter Details Date Type Department Care Team (Late st Contact Info) Description 11/21/2005 Historical Note [facility] Devyn Vásquez MD [address] [place] [address] [phone] Social History Tobacco Use Types Packs/Day Years [...] CARRILLO - [facility] [address] [facility] [address] [place] [phone] Brenda Clay MD [address] [facility] [address] [place] [address] 04/15/2026 10:00 AM EDT Office Visit [facility] [address] [place] [address] Sena Dominguez PA [address] [facility] [place] [address] documented as of this encounter Visit Diagnoses Not on filedocumented in this encounter Care Teams Network Systems Engineer Relationship Specialty Start Date End Date Meme Steel MD [address] [place] [address] 105 [place] [address] PCP - General Pediatrics 06/05/18 04/25/22 No Pcp, Pcp PCP - General 06/08/22 07/19/22 Guadalupe Mcbride MD PCP - General Family Medicine 07/20/22 11/01/23 Sena Dominguez PA [address] [place] [address] [place] [address] PCP - BRADY Physician Brilliandeer Looper 11/02/23 Levy Barry MD [address] [place] [address] [place] [address] PCP - General Family Medicine 12/20/23 documented as of this encounter
--- OUTSIDE RECORDS SUMMARY | 2025-07-28 14:39 | XMS_ITS | Encounter Summary ---
Author Organization [facility] work ([facility]) Address [address] [place] [address] Care Team Providers Care Icer Machine Operator Name Role Phone Meme Steel MD Primary Care Provider [phone] Pcp, Pcp Primary Care Provider Unavailabl Guadalupe Bardales MD Primary Care Provider [phone] Sena Dominguez Unavailable [phone] Levy Barry MD Primary Care Provider Unavailab le Source Comments The information that you have received may contain highly confidential and/or federally protected health information. This information has been disclosed to you from records protected by [facility]. The law prohibits you from [...] please contact the sender immediately.[facility] ([facility]) Encounter Details Date Type Department Care Team (Late st Contact Info) Description 06/02/2005 Historical Note [facility] [employer] [facility] Devyn Vásquez MD [address] [place] [address] [phone] Social History Tobacco Use Types Packs/Day Years [...] AM EST Office Visit LEATAH CARRILLO - [facility] [address] [facility] [address] [place] [phone] Brenda Clay MD [address] [facility] [address] [place] [address] 04/15/2026 10:00 AM EDT Office Visit [facility] [address] [place] [address] Sena Dominguez PA [address] [facility] [place] [address] documented as of this encounter Visit Diagnoses Not on filedocumented in this encounter Care Teams Icer Machine Operator Relationship Specialty Start Date End Date Meme Steel MD [address] [place] [address] 105 [place] [address] PCP - General Pediatrics 06/05/18 04/25/22 No Pcp, Pcp PCP - General 06/08/22 07/19/22 Guadalupe Mcbride MD PCP - General Family Medicine 07/20/22 11/01/23 Sena Dominguez PA [address] [place] [address] [place] [address] PCP - BRADY Physician Dye Machine Operator 11/02/23 Levy Barry MD [address] [place] [address] [place] [address] PCP - General Family Medicine 12/20/23 documented as of this encounter
--- OUTSIDE RECORDS SUMMARY | 2025-07-28 14:39 | XMS_ITS | Encounter Summary ---
Author Organization [facility] work ([facility]) Address [address] [place] [address] Care Team Providers Care Paper Reel Operator Name Role Phone Meme Steel MD Primary Care Provider [phone] Pcp, Pcp Primary Care Provider Unavailabl Guadalupe Bardales MD Primary Care Provider [phone] Sena Dominguez Unavailable [phone] Levy Barry MD Primary Care Provider Unavailab le Source Comments The information that you have received may contain highly confidential and/or federally protected health information. This information has been disclosed to you from records protected by [facility]. The law prohibits [...] error, please contact the sender immediately[facility] ([facility]) Encounter Details Date Type Department Care Team (Late st Contact Info) Description 03/21/2016 Historical Note [facility] [employer] [facility] Devyn Vásquez MD [address] [place] [address] [phone] Social History Tobacco Use Types Packs/Day Years [...] LEATHA CARRILLO - [facility] [address] [facility] [address] [place] [phone] Brenda Clay MD [address] [facility] [address] [place] [address] 04/15/2026 10:00 AM EDT Office Visit [facility] [address] [facility] [address] [facility] [address] [place] [address] Sena Dominguez PA [address] [facility] [place] [address] documented as of this encounter Visit Diagnoses Not on filedocumented in this encounter Care Teams Paper Reel Operator Relationship Specialty Start Date End Date Meme Steel MD [address] [place] [address] 105 [place] [address] PCP - General Pediatrics 06/05/18 04/25/22 No Pcp, Pcp PCP - General 06/08/22 07/19/22 Guadalupe Mcbride MD PCP - General Family Medicine 07/20/22 11/01/23 Sena Dominguez PA [address] [place] [address] [place] [address] PCP - BRADY Physician Roller Billet Mill 11/02/23 Levy Barry MD [address] [place] [address] [place] [address] PCP - General Family Medicine 12/20/23 documented as of this encounter
--- OUTSIDE RECORDS SUMMARY | 2025-07-28 14:39 | XMS_ITS | Encounter Summary ---
Author Organization [facility] work ([facility]) Address [address] [place] [address] Care Team Providers Care Maxillofacial Prosthodontist Name Role Phone Meme Steel MD Primary Care Provider [phone] Pcp, Pcp Primary Care Provider Unavailabl Guadalupe Bardales MD Primary Care Provider [phone] Sena Dominguez Unavailable [phone] Levy Barry MD Primary Care Provider Unavailab le Source Comments The information that you have received may contain highly confidential and/or federally protected health information. This information has been disclosed to you from records protected by [facility]. The law prohibits [...] contact the sender immediately.[facility] ([facility]) Encounter Details Date Type Department Care Team (Late st Contact Info) Description 09/29/2011 Historical Note [facility] [employer] [facility] Devyn Vásquez MD [address] [place] [address] [phone] Social History Tobacco Use Types Packs/Day Years [...] Visit LEATHA CARRILLO - [facility] [address] [facility] [address] [place] [phone] Brenda Clay MD [address] [facility] [address] [place] [address] 04/15/2026 10:00 AM EDT Office Visit [facility] [address] [place] [address] Sena Dominguez PA [address] [facility] [place] [address] documented as of this encounter Visit Diagnoses Not on filedocumented in this encounter Care Teams Maxillofacial Prosthodontist Relationship Specialty Start Date End Date Meme Steel MD [address] [place] [address] 105 [place] [address] PCP - General Pediatrics 06/05/18 04/25/22 No Pcp, Pcp PCP - General 06/08/22 07/19/22 Guadalupe Mcbride MD PCP - General Family Medicine 07/20/22 11/01/23 Sena Dominguez PA [address] [place] [address] [place] [address] PCP - BRADY Physician Preservationist 11/02/23 Levy Barry MD [address] [place] [address] [place] [address] PCP - General Family Medicine 12/20/23 documented as of this encounter
--- OUTSIDE RECORDS SUMMARY | 2025-07-28 14:39 | XMS_ITS | Encounter Summary ---
Author Organization [facility] work ([facility]) Address [address] [place] [address] Care Team Providers Care Green Feed Attendant Name Role Phone Meme Steel MD Primary Care Provider No Pcp, Pcp Primary Care Provider Unavailabl Guadalupe Bardales MD Primary Care Provider [phone] Sena Dominguez Unavailable [phone] Levy Barry MD Primary Care Provider Unavailab le Source Comments The information that you have received may contain highly confidential and/or federally protected health information. This information has been disclosed to you from records protected by [facility]. The law prohibits you [...] please contact the sender immediately.[facility] ([facility]) Encounter Details Date Type Department Care Team (Late st Contact Info) Description 06/14/2011 Historical Note [facility] [employer] [facility] Devyn Vásquez MD [address] [place] [address] [phone] Social History Tobacco Use Types Packs/Day Years [...] - [facility] [address] [facility] [address] [place] [phone] Brenda Clay MD [address] [facility] [address] [place] [address] 04/15/2026 10:00 AM EDT Office Visit [facility] [address] [facility] [address] [place] [phone] Sena Dominguez PA [address] [facility] [place] [address] documented as of this encounter Visit Diagnoses Not on filedocumented in this encounter Care Teams Green Feed Attendant Relationship Specialty Start Date End Date Meme Steel MD [address] [place] [address] 105 [place] [address] PCP - General Pediatrics 06/05/18 04/25/22 No Pcp, Pcp PCP - General 06/08/22 07/19/22 Guadalupe Mcbride MD PCP - General Family Medicine 07/20/22 11/01/23 Sena Dominguez PA [address] [place] [address] [place] [address] PCP - BRADY Physician Calender Wind Up Helper 11/02/23 Levy Barry MD [address] [place] [address] [place] [address] PCP - General Family Medicine 12/20/23 documented as of this encounter
--- OUTSIDE RECORDS SUMMARY | 2025-07-28 14:39 | XMS_ITS | Encounter Summary ---
Author Organization [facility] work ([facility]) Address [address] [place] [address] Care Team Providers Care Emergency Detail Driver Name Role Phone Meme Steel MD Primary Care Provider No Pcp, Pcp Primary Care Provider Unavailabl Guadalupe Bardales MD Primary Care Provider [phone] Sena Dominguez Unavailable [phone] Levy Barry MD Primary Care Provider Unavailab le Source Comments The information that you have received may contain highly confidential and/or federally protected health information. This information has been disclosed to you from records protected by [facility]. The law prohibits you from [...] information in error, please contact the sender immediately.[facility] ([facility]) Encounter Details Date Type Department Care Team (Late st Contact Info) Description 11/28/2005 Historical Note [facility] [employer] [facility] Devyn Vásquez MD [address] [place] [address] [phone] Social History Tobacco Use Types Packs/Day Years [...] LEATHA CARRILLO - [facility] [address] [facility] [address] [place] [phone] Brenda Clay MD [address] [facility] [address] [place] [address] 04/15/2026 10:00 AM EDT Office Visit [facility]HA [facility] [address] [facility] [address] [place] [address] Sena Dominguez PA [address] [facility] [place] [address] documented as of this encounter Visit Diagnoses Not on filedocumented in this encounter Care Teams Emergency Detail Driver Relationship Specialty Start Date End Date Meme Steel MD [address] [place] [address] 105 [place] [address] PCP - General Pediatrics 06/05/18 04/25/22 No Pcp, Pcp PCP - General 06/08/22 07/19/22 Guadalupe Mcbride MD PCP - General Family Medicine 07/20/22 11/01/23 Sena Dominguez PA [address] [place] [address] [place] [address] PCP - BRADY Physician Blanket Winder Helper 11/02/23 Levy Barry MD [address] [place] [address] [place] [address] PCP - General Family Medicine 12/20/23 documented as of this encounter
--- OUTSIDE RECORDS SUMMARY | 2025-07-28 14:39 | XMS_ITS | Encounter Summary ---
Author Organization [facility] work ([facility]) Address [address] [place] [address] Care Team Providers Care Plant Science Professor Name Role Phone Meme Steel MD Primary Care Provider [phone] No Pcp, Pcp Primary Care Provider Unavailabl Guadalupe Bardales MD Primary Care Provider [phone] Sena Dominguez Unavailable [phone] Levy Barry MD Primary Care Provider Unavailab le Source Comments The information that you have received may contain highly confidential and/or federally protected health information. This information has been disclosed to you from records protected by [facility]. The law prohibits you from [...] contact the sender immediately.[facility] ([facility]) Encounter Details Date Type Department Care Team (Late st Contact Info) Description 05/30/2005 Historical Note [facility] [employer] [facility] Devyn Vásquez MD [address] [place] [address] [phone] Social History Tobacco Use Types Packs/Day Years [...] LEATHA CARRILLO - [facility] [address] [facility] [address] [place] [phone] Brenda Clay MD [address] [facility] [address] [place] [address] 04/15/2026 10:00 AM EDT Office Visit LEATHA [facility] at [facility] + [facility] [address] [facility] [address] [place] [address] Sena Dominguez PA [address] [facility] [place] [address] documented as of this encounter Visit Diagnoses Not on filedocumented in this encounter Care Teams Plant Science Professor Relationship Specialty Start Date End Date Meme Steel MD [address] [place] [address] 105 [place] [address] PCP - General Pediatrics 06/05/18 04/25/22 No Pcp, Pcp PCP - General 06/08/22 07/19/22 Guadalupe Mcbride MD PCP - General Family Medicine 07/20/22 11/01/23 Sena Dominguez PA [address] [place] [address] [place] [address] PCP - BRADY Physician Card Scraper 11/02/23 Levy Barry MD [address] [place] [address] [place] [address] PCP - General Family Medicine 12/20/23 documented as of this encounter
--- OUTSIDE RECORDS SUMMARY | 2025-07-28 14:39 | XMS_ITS | Encounter Summary ---
Author Organization [facility] work ([facility]) Address [address] [place] [address] Care Team Providers Care Theater Usher Name Role Phone Meme Steel MD Primary Care Provider [phone] Pcp, Pcp Primary Care Provider Unavailabl Guadalupe Bardales MD Primary Care Provider [phone] Sena Dominguez Unavailable Levy Barry MD Primary Care Provider Unavailab le Source Comments The information that you have received may contain highly confidential and/or federally protected health information. This information has been disclosed to you from records protected by [facility]. The law prohibits you from [...] please contact the sender immediately.[facility] ([facility]) Encounter Details Date Type Department Care Team (Late st Contact Info) Description 05/12/2005 Historical Note [facility] [employer] [facility] Devyn Vásquez MD [address] [place] [address] [phone] Social History Tobacco Use Types Packs/Day Years [...] CARRILLO - [facility] [address] [facility] [address] [place] [phone] Brenda Clay MD [address] [facility] [address] [place] [address] 04/15/2026 10:00 AM EDT Office Visit LEATHA [facility] at [facility] + [facility] [address] [facility] [address] [place] [address] Sena Dominguez PA [address] [facility] [place] [address] documented as of this encounter Visit Diagnoses Not on filedocumented in this encounter Care Teams Theater Usher Relationship Specialty Start Date End Date Meme Steel MD [address] [place] [address] 105 [place] [address] PCP - General Pediatrics 06/05/18 04/25/22 No Pcp, Pcp PCP - General 06/08/22 07/19/22 Guadalupe Mcbride MD PCP - General Family Medicine 07/20/22 11/01/23 Sena Dominguez PA [address] [place] [address] [place] [address] PCP - BRADY Physician Operator Specialist Communications 11/02/23 Levy Barry MD [address] [place] [address] [place] [address] PCP - General Family Medicine 12/20/23 documented as of this encounter
--- OUTSIDE RECORDS SUMMARY | 2025-07-28 14:39 | XMS_ITS | Encounter Summary ---
Author Organization [facility] work ([facility]) Address [address] [place] [address] Care Team Providers Care Central Office Repairer Name Role Phone Meme Steel MD Primary Care Provider [phone] No Pcp, Pcp Primary Care Provider Unavailabl Guadalupe Bardales MD Primary Care Provider Sena Dominguez Unavailable [phone] Levy Barry MD Primary Care Provider Unavailab le Source Comments The information that you have received may contain highly confidential and/or federally protected health information. This information has been disclosed to you from records protected by [facility]. The law prohibits you [...] please contact the sender immediately.[facility] ([facility]) Encounter Details Date Type Department Care Team (Late st Contact Info) Description 11/28/2005 Historical Note [facility] [email or web address] [facility] Devyn Vásquez MD [address] [place] [address] [phone] Social History Tobacco Use Types Packs/Day Years [...] CARRILLO - [facility] [address] [facility] [address] [place] [phone] Brenda Clay MD [address] [facility] [address] [place] [address] 04/15/2026 10:00 AM EDT Office Visit LE[facility]HA [facility] at [facility] [address] [facility] [address] [place] [address] Sena Dominguez PA [address] [facility] [place] [address] documented as of this encounter Visit Diagnoses Not on filedocumented in this encounter Care Teams Central Office Repairer Relationship Specialty Start Date End Date Meme Steel MD [address] [place] [address] 105 [place] [address] PCP - General Pediatrics 06/05/18 04/25/22 No Pcp, Pcp PCP - General 06/08/22 07/19/22 Guadalupe Mcbride MD PCP - General Family Medicine 07/20/22 11/01/23 Sena Dominguez PA [address] [place] [address] [place] [address] PCP - BRADY Physician Accountant Systems 11/02/23 Levy Barry MD [address] [place] [address] [place] [address] PCP - General Family Medicine 12/20/23 documented as of this encounter
--- OUTSIDE RECORDS SUMMARY | 2025-07-28 14:39 | XMS_ITS | Encounter Summary ---
Author Organization [facility] work ([facility]) Address [address] [place] [address] Care Team Providers Care Student Truck Driver Name Role Phone Meme Steel MD Primary Care Provider [phone] No Pcp, Pcp Primary Care Provider Unavailabl Guadalupe Bardales MD Primary Care Provider [phone] Sena Dominguez Unavailable [phone] Levy Barry MD Primary Care Provider Unavailab le Source Comments The information that you have received may contain highly confidential and/or federally protected health information. This information has been disclosed to you from records protected by [facility]. The law prohibits you [...] the sender immediately.[facility] ([facility]) Encounter Details Date Type Department Care Team (Late st Contact Info) Description 06/14/2011 Historical Note [facility] [employer] [facility] Devyn Vásquez MD [address] [place] [address] [phone] Social History Tobacco Use Types Packs/Day Years [...] CARRILLO - [facility] at [facility] [address] [facility] [address] [place] [phone] Brenda Clay MD [address] [facility] [address] [place] [address] 04/15/2026 10:00 AM EDT Office Visit LE[facility]HA [facility] at [facility] + [facility] [address] [facility] [address] [place] [address] Sena Dominguez PA [address] [facility] [place] [address] documented as of this encounter Visit Diagnoses Not on filedocumented in this encounter Care Teams Student Truck Driver Relationship Specialty Start Date End Date Meme Steel MD [address] [place] [address] 105 [place] [address] PCP - General Pediatrics 06/05/18 04/25/22 No Pcp, Pcp PCP - General 06/08/22 07/19/22 Guadalupe Mcbride MD PCP - General Family Medicine 07/20/22 11/01/23 Sena Dominguez PA [address] [place] [address] [place] [address] PCP - BRADY Physician Delivery Table Feeder 11/02/23 Levy Barry MD [address] [place] [address] [place] [address] PCP - General Family Medicine 12/20/23 documented as of this encounter
--- OUTSIDE RECORDS SUMMARY | 2025-07-28 14:39 | XMS_ITS | Encounter Summary ---
Author Organization [facility] work ([facility]) Address [address] [facility] [address] [place] [address] Care Team Providers Care Claims Adjuster Name Role Phone Meme Steel MD Primary Care Provider [phone] Pcp, Pcp Primary Care Provider Unavailabl Guadalupe Bardales MD Primary Care Provider [phone] Sena Dominguez Unavailable [phone] Levy Barry MD Primary Care Provider Unavailab le Source Comments The information that you have received may contain highly confidential and/or federally protected health information. This information has been disclosed to you from records protected by [facility]. The law prohibits you from [...] the sender immediately.[facility] ([facility]) Encounter Details Date Type Department Care Team (Late st Contact Info) Description 06/20/2005 Historical Note [facility] [employer] System Devyn Vásquez MD [address] [place] [address] [phone] Social History Tobacco Use Types Packs/Day Years [...] - [facility] at [facility] [address] [facility] [address] [place] [phone] Brenda Clay MD [address] [facility] [address] [place] [address] 04/15/2026 10:00 AM EDT Office Visit [facility] [address] [facility] [address] [place] [address] Sena Dominguez PA [address] [facility] [place] [address] documented as of this encounter Visit Diagnoses Not on filedocumented in this encounter Care Teams Claims Adjuster Relationship Specialty Start Date End Date Meme Steel MD [address] [place] [address] [place] [address] PCP - General Pediatrics 06/05/18 04/25/22 No Pcp, Pcp PCP - General 06/08/22 07/19/22 Guadalupe Mcbride MD PCP - General Family Medicine 07/20/22 11/01/23 Sena Dominguez PA [address] [place] [address] [place] [address] PCP - BRADY Physician Dehydration Unit Operator 11/02/23 Levy Barry MD [address] [place] [address] [place] [address] PCP - General Family Medicine 12/20/23 documented as of this encounter
--- OUTSIDE RECORDS SUMMARY | 2025-07-28 14:39 | XMS_ITS | Encounter Summary ---
Author Organization [facility] work ([facility]) Address [address] [facility] [facility] [facility] [address] [place] [address] Care Team Providers Care Ship Fitter Name Role Phone Meme Steel MD Primary Care Provider [phone] Pcp, Pcp Primary Care Provider Unavailabl Guadalupe Bardales MD Primary Care Provider [phone] Sena Dominguez Unavailable [phone] Levy Barry MD Primary Care Provider Unavailab le Source Comments The information that you have received may contain highly confidential and/or federally protected health information. This information has been disclosed to you from records protected by [facility]. The law prohibits you [...] please contact the sender immediately.[facility] ([facility]) Encounter Details Date Type Department Care Team (Late st Contact Info) Description 08/13/2009 Historical Note [facility] [employer] System Devyn Vásquez MD [address] [place] [address] [phone] Social History Tobacco Use Types Packs/Day Years [...] [facility] at [facility] [address] [facility] [address] [place] [phone] Brenda Clay MD [address] [facility] [address] [place] [address] 04/15/2026 10:00 AM EDT Office Visit [facility] at [facility] + [facility] [address] [facility] [address] [place] [address] Sena Dominguez PA [address] [facility] [place] [address] documented as of this encounter Visit Diagnoses Not on filedocumented in this encounter Care Teams Ship Fitter Relationship Specialty Start Date End Date Meme Steel MD [address] [place] [address] 105 [place] [address] PCP - General Pediatrics 06/05/18 04/25/22 No Pcp, Pcp PCP - General 06/08/22 07/19/22 Guadalupe Mcbride MD PCP - General Family Medicine 07/20/22 11/01/23 Sena Dominguez PA [address] [place] [address] [place] [address] PCP - BRADY Physician Director For [employer] 11/02/23 Levy Barry MD [address] [place] [address] [place] [address] PCP - General Family Medicine 12/20/23 documented as of this encounter
--- OUTSIDE RECORDS SUMMARY | 2025-07-28 14:39 | XMS_ITS | Encounter Summary ---
Author Organization [facility] work ([facility]) Address [address] [facility] [address] [place] [address] Care Team Providers Care Gasoline Service Attendant Name Role Phone Meme Steel MD Primary Care Provider [phone] Pcp, Pcp Primary Care Provider Unavailabl Guadalupe Bardales MD Primary Care Provider [phone] Sena Dominguez Unavailable [phone] Levy Barry MD Primary Care Provider Unavailab le Source Comments The information that you have received may contain highly confidential and/or federally protected health information. This information has been disclosed to you from records protected by [facility]. The law prohibits you from making [...] Contact Info) Description 09/10/2009 Historical Note [facility] [employer] System Devyn Vásquez MD [address] [place] [address] [phone] Social History Tobacco Use Types Packs/Day Years [...] LEATHA CARRILLO - [facility] at [facility] [address] [facility] [address] [place] [phone] Brenda Clay MD [address] [facility] [address] [place] [address] 04/15/2026 10:00 AM EDT Office Visit [facility] at [facility] + [facility] [address] [facility] [address] [place] [address] Sena Dominguez PA [address] [facility] [place] [address] documented as of this encounter Visit Diagnoses Not on filedocumented in this encounter Care Teams Gasoline Service Attendant Relationship Specialty Start Date End Date Meme Steel MD [address] [place] [address] 105 [place] [address] PCP - General Pediatrics 06/05/18 04/25/22 No Pcp, Pcp PCP - General 06/08/22 07/19/22 Guadalupe Mcbride MD PCP - General Family Medicine 07/20/22 11/01/23 Sena Dominguez PA [address] [place] [address] [place] [address] PCP - BRADY Physician Rack Washer 11/02/23 Levy Barry MD [address] [place] [address] [place] [address] PCP - General Family Medicine 12/20/23 documented as of this encounter
--- OUTSIDE RECORDS SUMMARY | 2025-07-28 14:39 | XMS_ITS | Encounter Summary ---
Author Organization [facility] work ([facility]) Address [address] [place] [address] Care Team Providers Care Aquatics Instructor Name Role Phone Meme Steel MD Primary Care Provider [phone] Pcp, Pcp Primary Care Provider Unavailabl Guadalupe Bardales MD Primary Care Provider [phone] Sena Dominguez Unavailable [phone] Levy Barry MD Primary Care Provider Unavailab le Source Comments The information that you have received may contain highly confidential and/or federally protected health information. This information has been disclosed to you from records protected by [facility]. The law prohibits you [...] information in error, please contact the sender immediately.[facility] ([facility]) Encounter Details Date Type Department Care Team (Late st Contact Info) Description 02/16/2012 Historical Note [facility] [employer] System Devyn Vásquez MD [address] [place] [address] [phone] Social History Tobacco Use Types Packs/Day Years [...] Visit LEATHA CARRILLO - [facility] [address] [facility] [address] [place] [phone] Brenda Clay MD [address] [facility] [address] [place] [address] 04/15/2026 10:00 AM EDT Office Visit [facility] at [facility] + [facility] [address] [facility] [address] [place] [address] Sena Dominguez PA [address] [facility] [place] [address] documented as of this encounter Visit Diagnoses Not on filedocumented in this encounter Care Teams Aquatics Instructor Relationship Specialty Start Date End Date Meme Steel MD [address] [place] [address] 105 [place] [address] PCP - General Pediatrics 06/05/18 04/25/22 No Pcp, Pcp PCP - General 06/08/22 07/19/22 Guadalupe Mcbride MD PCP - General Family Medicine 07/20/22 11/01/23 Sena Dominguez PA [address] [place] [address] [place] [address] PCP - BRADY Physician Machine Molder Squeeze 11/02/23 Levy Barry MD [address] [place] [address] [place] [address] PCP - General Family Medicine 12/20/23 documented as of this encounter
--- OUTSIDE RECORDS SUMMARY | 2025-07-28 14:39 | XMS_ITS | Encounter Summary ---
Author Organization [facility] work ([facility]) Address [address] [facility] [address] [place] [address] Care Team Providers Care Computer Systems Software Architect Name Role Phone Meme Steel MD Primary Care Provider [phone] Pcp, Pcp Primary Care Provider Unavailabl Guadalupe Bardales MD Primary Care Provider [phone] Sena Dominguez Unavailable [phone] Lvey Barry MD Primary Care Provider Unavailab le Source Comments The information that you have received may contain highly confidential and/or federally protected health information. This information has been disclosed to you from records protected by [facility]. The law prohibits you from making [...] please contact the sender immediately.[facility] ([facility]) Encounter Details Date Type Department Care Team (Late st Contact Info) Description 02/16/2012 Historical Note [facility] [employer] System Devyn Vásquez MD [address] [place] [address] [phone] Social History Tobacco Use Types Packs/Day Years [...] - [facility] at [facility] [address] [facility] [address] [place] [phone] Brenda Clay MD [address] [facility] [address] [place] [address] 04/15/2026 10:00 AM EDT Office Visit [facility] at [facility] + [facility] [address] [facility] [address] [place] [address] Sena Dominguez PA [address] [facility] [place] [address] documented as of this encounter Visit Diagnoses Not on filedocumented in this encounter Care Teams Computer Systems Software Architect Relationship Specialty Start Date End Date Meme Steel MD [address] [place] [address] 105 [place] [address] PCP - General Pediatrics 06/05/18 04/25/22 No Pcp, Pcp PCP - General 06/08/22 07/19/22 Guadalupe Mcbride MD PCP - General Family Medicine 07/20/22 11/01/23 Sena Dominguez PA [address] [place] [address] [place] [address] PCP - BRADY Physician Finishing Operator 11/02/23 Levy Barry MD [address] [place] [address] [place] [address] PCP - General Family Medicine 12/20/23 documented as of this encounter
--- OUTSIDE RECORDS SUMMARY | 2025-07-28 14:39 | XMS_ITS | Encounter Summary ---
Author Organization [facility] work ([facility]) Address [address] [facility] [address] [place] [address] Care Team Providers Care Computer Network Specialist Name Role Phone Meme Steel MD Primary Care Provider [phone] Pcp, Pcp Primary Care Provider Unavailabl Guadalupe Bardales MD Primary Care Provider [phone] Sena Dominguez Unavailable [phone] Levy Barry MD Primary Care Provider Unavailab le Source Comments The information that you have received may contain highly confidential and/or federally protected health information. This information has been disclosed to you from records protected by [facility]. The law prohibits you from [...] sender immediately.[facility] ([facility]) Encounter Details Date Type Department Care Team (Late st Contact Info) Description 08/13/2009 Historical Note [facility] [employer] System Devyn Vásquez MD [address] [place] [address] [phone] Social History Tobacco Use Types Packs/Day Years [...] Office Visit LEATHA CARRILLO - [facility] [address] [facility] [address] [place] [phone] Brenda Clay MD [address] [facility] [address] [place] [address] 04/15/2026 10:00 AM EDT Office Visit [facility] at [facility] [address] [facility] [address] [place] [address] Sena Dominguez PA [address] [facility] [place] [address] documented as of this encounter Visit Diagnoses Not on filedocumented in this encounter Care Teams Computer Network Specialist Relationship Specialty Start Date End Date Meme Steel MD [address] [place] [address] 105 [place] [address] PCP - General Pediatrics 06/05/18 04/25/22 No Pcp, Pcp PCP - General 06/08/22 07/19/22 Guadalupe Mcbride MD PCP - General Family Medicine 07/20/22 11/01/23 Sena Dominguez PA [address] [place] [address] [place] [address] PCP - BRADY Physician Bottomer Operator 11/02/23 Levy Barry MD [address] [place] [address] [place] [address] PCP - General Family Medicine 12/20/23 documented as of this encounter
--- OUTSIDE RECORDS SUMMARY | 2025-07-28 14:39 | XMS_ITS | Encounter Summary ---
Author Organization [facility] work ([facility]) Address [address] [facility] [address] [place] [address] Care Team Providers Care Utility Operator Name Role Phone Meme Steel MD Primary Care Provider [phone] Pcp, Pcp Primary Care Provider Unavailabl Guadalupe Bardales MD Primary Care Provider Sena Dominguez Unavailable [phone] Levy Barry MD Primary Care Provider Unavailab le Source Comments The information that you have received may contain highly confidential and/or federally protected health information. This information has been disclosed to you from records protected by [facility]. The law prohibits you [...] please contact the sender immediately.[facility] ([facility]) Encounter Details Date Type Department Care Team (Late st Contact Info) Description 05/31/2005 Historical Note [facility] [place] System Devyn Vásquez MD [address] [place] [address] [phone] Social History Tobacco Use Types Packs/Day Years [...] CARRILLO - [facility] at [facility] [address] [facility] [address] [place] [phone] Brenda Clay MD [address] [facility] [address] [place] [address] 04/15/2026 10:00 AM EDT Office Visit [facility]HA [facility] at [facility] + [facility] [address] [facility] [address] [place] [address] Sena Dominguez PA [address] [facility] [place] [address] documented as of this encounter Visit Diagnoses Not on filedocumented in this encounter Care Teams Utility Operator Relationship Specialty Start Date End Date Meme Steel MD [address] [place] [address] 105 [place] [address] PCP - General Pediatrics 06/05/18 04/25/22 No Pcp, Pcp PCP - General 06/08/22 07/19/22 Guadalupe Mcbride MD PCP - General Family Medicine 07/20/22 11/01/23 Sena Dominguez PA [address] [place] [address] [place] [address] PCP - BRADY Physician Machine Attendant 11/02/23 Levy Barry MD [address] [place] [address] [place] [address] PCP - General Family Medicine 12/20/23 documented as of this encounter
--- OUTSIDE RECORDS SUMMARY | 2025-07-28 14:39 | XMS_ITS | Encounter Summary ---
Author Organization [facility] work ([facility]) Address [address] [facility] [address] [place] [address] Care Team Providers Care Frothing Machine Operator Name Role Phone Meme Steel MD Primary Care Provider [phone] Pcp, Pcp Primary Care Provider Unavailabl Guadalupe Bardales MD Primary Care Provider [phone] Sena Dominguez Unavailable [phone] Levy Barry MD Primary Care Provider Unavailab le Source Comments The information that you have received may contain highly confidential and/or federally protected health information. This information has been disclosed to you from records protected by [employer] [facility]. The law prohibits you [...] contact the sender immediately.[facility] ([facility]) Encounter Details Date Type Department Care Team (Late st Contact Info) Description 08/13/2009 Historical Note [facility] [employer] System Devyn Vásquez MD [address] [place] [address] [phone] Social History Tobacco Use Types Packs/Day Years [...] [facility] [address] [facility] [address] [place] [phone] Brenda Clay MD [address] [facility] [address] [place] [address] 04/15/2026 10:00 AM EDT Office Visit [facility]HA [facility] at [facility] + [facility] [address] [facility] [address] [place] [address] Sena Dominguez PA [address] [facility] [place] [address] documented as of this encounter Visit Diagnoses Not on filedocumented in this encounter Care Teams Frothing Machine Operator Relationship Specialty Start Date End Date Meme Steel MD [address] [place] [address] [place] [address] PCP - General Pediatrics 06/05/18 04/25/22 No Pcp, Pcp PCP - General 06/08/22 07/19/22 Guadalupe Mcbride MD PCP - General Family Medicine 07/20/22 11/01/23 Sena Dominguez PA [address] [place] [address] [place] [address] PCP - BRADY Physician Casting Finisher 11/02/23 Levy Barry MD [address] [place] [address] [place] [address] PCP - General Family Medicine 12/20/23 documented as of this encounter
--- OUTSIDE RECORDS SUMMARY | 2025-07-28 14:39 | XMS_ITS | Encounter Summary ---
Author Organization [facility] work ([facility]) Address [address] [facility] [address] [place] [address] Care Team Providers Care Interventional Sale Consultant Name Role Phone Meme Steel MD Primary Care Provider [phone] Pcp, Pcp Primary Care Provider Unavailabl Guadalupe Bardales MD Primary Care Provider [phone] Sena Dominguez Unavailable [phone] Levy Barry MD Primary Care Provider Unavailab le Source Comments The information that you have received may contain highly confidential and/or federally protected health information. This information has been disclosed to you from records protected by [facility]. The law [...] the sender immediately.[facility] ([facility]) Encounter Details Date Type Department Care Team (Late st Contact Info) Description 03/21/2016 Historical Note [facility] [place] System Devyn Vásquez MD [address] [place] [address] [phone] Social History Tobacco Use Types Packs/Day Years [...] CARRILLO - [facility] [address] [facility] [address] [place] [phone] Brenda Clay MD [address] [facility] [address] [place] [phone] 04/15/2026 10:00 AM EDT Office Visit [facility] at [facility] + [facility] [address] [facility] [address] [place] [address] Sena Dominguez PA [address] [facility] [place] [address] documented as of this encounter Visit Diagnoses Not on filedocumented in this encounter Care Teams Interventional Sale Consultant Relationship Specialty Start Date End Date Meme Steel MD [address] [place] [address] 105 [place] [address] PCP - General Pediatrics 06/05/18 04/25/22 No Pcp, Pcp PCP - General 06/08/22 07/19/22 Guadalupe Mcbride MD PCP - General Family Medicine 07/20/22 11/01/23 Sena Dominguez PA [address] [place] [address] [place] [address] PCP - BRADY Physician Cargo Service Supervisor 11/02/23 Levy Barry MD [address] [place] [address] [place] [address] PCP - General Family Medicine 12/20/23 documented as of this encounter
--- OUTSIDE RECORDS SUMMARY | 2025-07-28 14:39 | XMS_ITS | Encounter Summary ---
Author Organization [facility] work ([facility]) Address [address] [facility] [address] [place] [address] Care Team Providers Care Leather Crafter Name Role Phone Meme Steel MD Primary Care Provider [phone] Pcp, Pcp Primary Care Provider Unavailabl Guadalupe Bardales MD Primary Care Provider [phone] Sena Dominguez Unavailable [phone] Levy Barry MD Primary Care Provider Unavailab le Source Comments The information that you have received may contain highly confidential and/or federally protected health information. This information has been disclosed to you from records protected by [facility]. The law prohibits you from [...] error, please contact the sender immediately.[facility] ([facility]) Encounter Details Date Type Department Care Team (Late st Contact Info) Description 09/21/2010 Historical Note [facility] [employer] System Devyn Vásquez MD [address] [place] [address] [phone] Social History Tobacco Use Types Packs/Day Years [...] CARRILLO - [facility] [address] [facility] [address] [place] [phone] Brenda Clay MD [address] [facility] [address] [place] [phone] 04/15/2026 10:00 AM EDT Office Visit LE[facility]HA [facility] at [facility] + [facility] [address] [facility] [address] [place] [address] Sena Dominguez PA [address] [facility] [place] [address] documented as of this encounter Visit Diagnoses Not on filedocumented in this encounter Care Teams Leather Crafter Relationship Specialty Start Date End Date Meme Steel MD [address] [place] [address] 105 [place] [address] PCP - General Pediatrics 06/05/18 04/25/22 No Pcp, Pcp PCP - General 06/08/22 07/19/22 Guadalupe Mcbride MD PCP - General Family Medicine 07/20/22 11/01/23 Sena Dominguez PA [address] [place] [address] [place] [address] PCP - BRADY Physician Drawing In Hand 11/02/23 Levy Barry MD [address] [place] [address] [place] [address] PCP - General Family Medicine 12/20/23 documented as of this encounter
--- OUTSIDE RECORDS SUMMARY | 2025-07-28 14:39 | XMS_ITS | Encounter Summary ---
Author Organization [facility] work ([facility]) Address [address] [place] [address] Care Team Providers Care Commercial Plumber Name Role Phone Meme Steel MD Primary Care Provider [phone] No Pcp, Pcp Primary Care Provider Unavailabl Guadalupe Bardales MD Primary Care Provider [phone] Sena Dominguez Unavailable [phone] Levy Barry MD Primary Care Provider Unavailab le Source Comments The information that you have received may contain highly confidential and/or federally protected health information. This information has been disclosed to you from records protected by [facility]. The law prohibits you [...] contact the sender immediately.[facility] ([facility]) Encounter Details Date Type Department Care Team (Late st Contact Info) Description 11/10/2005 Historical Note [facility] Skiin [employer]ement[employer] System Devyn Vásquez MD [address] [place] [address] [phone] Social History Tobacco Use Types Packs/Day Years [...] LEATHA CARRILLO - [facility] [address] [facility] [address] [place] [phone] Brenda Clay MD [address] [facility] [address] [place] [address] 04/15/2026 10:00 AM EDT Office Visit [facility] + [facility] [address] [facility] [address] [place] [address] Sena Dominguez PA [address] [facility] [place] [address] documented as of this encounter Visit Diagnoses Not on filedocumented in this encounter Care Teams Commercial Plumber Relationship Specialty Start Date End Date Meme Steel MD [address] [place] [address] [place] [address] PCP - General Pediatrics 06/05/18 04/25/22 No Pcp, Pcp PCP - General 06/08/22 07/19/22 Guadalupe Mcbride MD PCP - General Family Medicine 07/20/22 11/01/23 Sena Dominguez PA [address] [place] [address] [place] [address] PCP - BRADY Physician Hackler Doll Wigs 11/02/23 Levy Barry MD [address] [place] [address] [place] [address] PCP - General Family Medicine 12/20/23 documented as of this encounter
--- OUTSIDE RECORDS SUMMARY | 2025-07-28 14:39 | XMS_ITS | Encounter Summary ---
Author Organization [facility] work ([facility]) Address [address] [facility] [address] [facility] [address] [place] [address] Care Team Providers Care Criminal Defense Attorney Name Role Phone Meme Steel MD Primary Care Provider [phone] Pcp, Pcp Primary Care Provider Unavailabl Guadalupe Bardales MD Primary Care Provider [phone] Sena Dominguez Unavailable [phone] Levy Barry MD Primary Care Provider Unavailab le Source Comments The information that you have received may contain highly confidential and/or federally protected health information. This information has been disclosed to you from records protected by [facility]. The law prohibits you from making [...] the sender immediately.[facility] ([facility]) Encounter Details Date Type Department Care Team (Late st Contact Info) Description 10/18/2005 Historical Note [facility] Hello Agent System Devyn Vásquez MD [address] [place] [address] [phone] Social History Tobacco Use Types Packs/Day Years [...] [facility] [address] [facility] [address] [place] [phone] Brenda Clay MD [address] [facility] [address] [place] [address] 04/15/2026 10:00 AM EDT Office Visit [facility] at [facility] + [facility] [address] [facility] [address] [place] [address] Sena Dominguez PA [address] [facility] [place] [address] documented as of this encounter Visit Diagnoses Not on filedocumented in this encounter Care Teams Criminal Defense Attorney Relationship Specialty Start Date End Date eMme Steel MD [address] [place] [address] 105 [place] [address] PCP - General Pediatrics 06/05/18 04/25/22 No Pcp, Pcp PCP - General 06/08/22 07/19/22 Guadalupe Mcbride MD PCP - General Family Medicine 07/20/22 11/01/23 Sena Dominguez PA [address] [place] [address] [place] [address] PCP - BRADY Physician Invoicing Machine Operator 11/02/23 Levy Barry MD [address] [place] [address] [place] [address] PCP - General Family Medicine 12/20/23 documented as of this encounter
--- OUTSIDE RECORDS SUMMARY | 2025-07-28 14:39 | XMS_ITS | Encounter Summary ---
Author Organization [facility] work ([facility]) Address [address] [place] [address] Care Team Providers Care Database Analyst Name Role Phone Meme Steel MD Primary Care Provider [phone] Pcp, Pcp Primary Care Provider Unavailabl Guadalupe Bardales MD Primary Care Provider [phone] Sena Dominguez Unavailable [phone] Levy Barry MD Primary Care Provider Unavailab le Source Comments The information that you have received may contain highly confidential and/or federally protected health information. This information has been disclosed to you from records protected by [facility]. The law prohibits you from making [...] sender immediately.[facility] ([facility]) Encounter Details Date Type Department Care Team (Late st Contact Info) Description 03/29/2016 Historical Note [facility] Adaptive [employer] System Devyn Vásquez MD [address] [place] [address] [phone] Social History Tobacco Use Types Packs/Day Years [...] LEATHA CARRILLO - [facility] [address] [facility] [address] [place] [phone] Brenda Clay MD [address] [facility] [address] [place] [address] 04/15/2026 10:00 AM EDT Office Visit [facility] at [facility] [address] [facility] [address] [place] [address] Sena Dominguez PA [address] [facility] [place] [address] documented as of this encounter Visit Diagnoses Not on filedocumented in this encounter Care Teams Database Analyst Relationship Specialty Start Date End Date Meme Steel MD [address] [place] [address] 105 [place] [address] PCP - General Pediatrics 06/05/18 04/25/22 No Pcp, Pcp PCP - General 06/08/22 07/19/22 Guadalupe Mcbride MD PCP - General Family Medicine 07/20/22 11/01/23 Sena Dominguez PA [address] [place] [address] [place] [address] PCP - BRADY Physician Family Development Extension Specialist 11/02/23 Levy Barry MD [address] [place] [address] [place] [address] PCP - General Family Medicine 12/20/23 documented as of this encounter
--- OUTSIDE RECORDS SUMMARY | 2025-07-28 14:39 | XMS_ITS | Encounter Summary ---
Author Organization [facility] work ([facility]) Address [address] [place] [address] Care Team Providers Care Lens Mounter Name Role Phone Meme Steel MD Primary Care Provider [phone] No Pcp, Pcp Primary Care Provider Unavailabl Guadalupe Bardales MD Primary Care Provider Sena Dominguez Unavailable [phone] Levy Barry MD Primary Care Provider Unavailab le Source Comments The information that you have received may contain highly confidential and/or federally protected health information. This information has been disclosed to you from records protected by [facility]. The law prohibits you from [...] error, please contact the sender immediately.[facility] ([facility]) Encounter Details Date Type Department Care Team (Late st Contact Info) Description 11/21/2005 Historical Note [facility] tsumobi System Devyn Vásquez MD [address] [place] [address] [phone] Social History Tobacco Use Types Packs/Day Years [...] LEATHA CARRILLO - [facility] [address] [facility] [address] [place] [phone] Brenda Clay MD [address] [facility] [address] [place] [address] 04/15/2026 10:00 AM EDT Office Visit [facility] at [facility] + [facility] [address] [facility] [place] [facility] [address] [place] [address] Sena Dominguez PA [address] [facility] [place] [facility] [place] [address] documented as of this encounter Visit Diagnoses Not on filedocumented in this encounter Care Teams Lens Mounter Relationship Specialty Start Date End Date Meme Steel MD [address] [place] [address] 105 [place] [address] PCP - General Pediatrics 06/05/18 04/25/22 No Pcp, Pcp PCP - General 06/08/22 07/19/22 Guadalupe Mcbride MD PCP - General Family Medicine 07/20/22 11/01/23 Sena Dominguez PA [address] [place] [address] [place] [address] PCP - BRADY Physician Editing Clerk 11/02/23 Levy Barry MD [address] [place] [address] [place] [address] PCP - General Family Medicine 12/20/23 documented as of this encounter
--- OUTSIDE RECORDS SUMMARY | 2025-07-28 14:39 | XMS_ITS | Encounter Summary ---
Author Organization [facility] work ([facility]) Address [address] [place] [address] Care Team Providers Care Director Of Volunteer Services Name Role Phone Meme Steel MD Primary Care Provider [phone] No Pcp, Pcp Primary Care Provider Unavailabl Guadalupe Bardales MD Primary Care Provider [phone] Sena Dominguez Unavailable [phone] Levy Barry MD Primary Care Provider Unavailab le Source Comments The information that you have received may contain highly confidential and/or federally protected health information. This information has been disclosed to you from records protected by [facility]. The law prohibits you from making [...] please contact the sender immediately.[facility] ([facility]) Encounter Details Date Type Department Care Team (Late st Contact Info) Description 11/25/2010 Historical Note [facility] [employer] System Devyn Vásquez MD [address] [place] [address] [phone] Social History Tobacco Use Types Packs/Day Years [...] CARRILLO - [facility] [address] [facility] [address] [place] [phone] Brenda Clay MD [address] [facility] [address] [place] [address] 04/15/2026 10:00 AM EDT Office Visit [facility] at [facility] + [facility] [address] [facility] [address] [place] [address] Sena Dominguez PA [address] [facility] [place] [address] documented as of this encounter Visit Diagnoses Not on filedocumented in this encounter Care Teams Director Of Volunteer Services Relationship Specialty Start Date End Date Meme Steel MD [address] [place] [address] 105 [place] [address] PCP - General Pediatrics 06/05/18 04/25/22 No Pcp, Pcp PCP - General 06/08/22 07/19/22 Guadalupe Mcbride MD PCP - General Family Medicine 07/20/22 11/01/23 Sena Dominguez PA [address] [place] [address] [place] [address] PCP - BRADY Physician Rehab Spec 11/02/23 Levy Barry MD [address] [place] [address] [place] [address] PCP - General Family Medicine 12/20/23 documented as of this encounter
--- OUTSIDE RECORDS SUMMARY | 2025-07-28 14:39 | XMS_ITS | Encounter Summary ---
Author Organization [facility] work ([facility]) Address [address] [place] [address] Care Team Providers Care Reading Aide Name Role Phone Meme Steel MD Primary Care Provider [phone] Pcp, Pcp Primary Care Provider Unavailabl Guadalupe Bardales MD Primary Care Provider [phone] Sena Dominguez Unavailable [phone] Levy Barry MD Primary Care Provider Unavailab le Source Comments The information that you have received may contain highly confidential and/or federally protected health information. This information has been disclosed to you from records protected by [facility]. The law prohibits you from making any [...] contact the sender immediately.[facility] ([facility]) Encounter Details Date Type Department Care Team (Late st Contact Info) Description 11/09/2005 Historical Note [facility] [id number] System Devyn Vásquez MD [address] [place] [address] [phone] Social History Tobacco Use Types Packs/Day Years [...] LEATHA CARRILLO - [facility] [address] [facility] [address] [place] [phone] Brenda Clay MD [address] [facility] [address] [place] [address] 04/15/2026 10:00 AM EDT Office Visit [facility]HA [facility] at [facility] + [facility] [address] [facility] [address] [place] [address] Sena Dominguez PA [address] [facility] [place] [address] documented as of this encounter Visit Diagnoses Not on filedocumented in this encounter Care Teams Reading Aide Relationship Specialty Start Date End Date Meme Steel MD [address] [place] [address] 105 [place] [address] PCP - General Pediatrics 06/05/18 04/25/22 No Pcp, Pcp PCP - General 06/08/22 07/19/22 Guadalupe Mcbride MD PCP - General Family Medicine 07/20/22 11/01/23 Sena Dominguez PA [address] [place] [address] [place] [address] PCP - BRADY Physician Pen Tester 11/02/23 Levy Barry MD [address] [place] [address] [place] [address] PCP - General Family Medicine 12/20/23 documented as of this encounter
--- OUTSIDE RECORDS SUMMARY | 2025-07-28 14:39 | XMS_ITS | Encounter Summary ---
Author Organization [facility] work ([facility]) Address [address] [place] [address] Care Team Providers Care Shank Paperer Name Role Phone Meme Steel MD Primary Care Provider [phone] No Pcp, Pcp Primary Care Provider Unavailabl Guadalupe Bardales MD Primary Care Provider [phone] Sena Dominguez Unavailable Levy Barry MD Primary Care Provider Unavailab le Source Comments The information that you have received may contain highly confidential and/or federally protected health information. This information has been disclosed to you from records protected by [facility]. The law prohibits you from [...] immediately.[facility] ([facility]) Encounter Details Date Type Department Care Team (Late st Contact Info) Description 01/16/2017 Historical Note [facility] LevelEleven System Devyn Vásquez MD [address] [place] [address] [phone] Social History Tobacco Use Types Packs/Day Years [...] CARRILLO - [facility] [address] [facility] [address] [place] [phone] Brenda Clay MD [address] [place] [facility] [address] [place] [address] 04/15/2026 10:00 AM EDT Office Visit [facility] + [facility] [address] [facility] [address] [place] [address] Sena Dominguez PA [address] [facility] [place] [address] documented as of this encounter Visit Diagnoses Not on filedocumented in this encounter Care Teams Shank Paperer Relationship Specialty Start Date End Date Meme Steel MD [address] [place] [address] 105 [place] [address] PCP - General Pediatrics 06/05/18 04/25/22 No Pcp, Pcp PCP - General 06/08/22 07/19/22 Guadalupe Mcbride MD PCP - General Family Medicine 07/20/22 11/01/23 Sena Dominguez PA [address] [place] [address] [place] [address] PCP - BRADY Physician Fourth Mate 11/02/23 Levy Barry MD [address] [place] [address] [place] [address] PCP - General Family Medicine 12/20/23 documented as of this encounter
--- OUTSIDE RECORDS SUMMARY | 2025-07-28 14:39 | XMS_ITS | Encounter Summary ---
Author Organization [facility] work ([facility]) Address [address] [facility] [address] [place] [address] Care Team Providers Care Process Expert Name Role Phone Meme Steel MD Primary Care Provider [phone] No Pcp, Pcp Primary Care Provider Unavailabl Guadalupe Bardales MD Primary Care Provider [phone] Sena Dominguez Unavailable [phone] Levy Barry MD Primary Care Provider Unavailab le Source Comments The information that you have received may contain highly confidential and/or federally protected health information. This information has been disclosed to you from records protected by [facility]. The law prohibits you from [...] error, please contact the sender immediately.[facility] ([facility]) Encounter Details Date Type Department Care Team (Late st Contact Info) Description 06/20/2005 Historical Note [facility] [employer] System Devyn Vásquez MD [address] [place] [address] [phone] Social History Tobacco Use Types Packs/Day Years [...] Visit LEATHA CARRILLO - [facility] [address] [facility] [address] [place] [phone] Brenda Clay MD [address] [facility] [address] [place] [address] 04/15/2026 10:00 AM EDT Office Visit LEATHA [facility] at [facility] + [facility] [address] [facility] [address] [place] [address] Sena Dominguez PA [address] [facility] [place] [address] documented as of this encounter Visit Diagnoses Not on filedocumented in this encounter Care Teams Process Expert Relationship Specialty Start Date End Date Meme Steel MD [address] [place] [address] 105 [place] [address] PCP - General Pediatrics 06/05/18 04/25/22 No Pcp, Pcp PCP - General 06/08/22 07/19/22 Guadalupe Mcbride MD PCP - General Family Medicine 07/20/22 11/01/23 Sena Dominguez PA [address] [place] [address] [place] [address] PCP - BRADY Physician Pinking Machine Operator 11/02/23 Levy Barry MD [address] [place] [address] [place] [address] PCP - General Family Medicine 12/20/23 documented as of this encounter
--- OUTSIDE RECORDS SUMMARY | 2025-07-28 14:39 | XMS_ITS | Encounter Summary ---
Author Organization [facility] work ([facility]) Address [address] [place] [address] Care Team Providers Care Wood Pattern Maker Name Role Phone Meme Steel MD Primary Care Provider No Pcp, Pcp Primary Care Provider Unavailabl Guadalupe Bardales MD Primary Care Provider [phone] Sena Dominguez Unavailable [phone] Levy Barry MD Primary Care Provider Unavailab le Source Comments The information that you have received may contain highly confidential and/or federally protected health information. This information has been disclosed to you from records protected by [facility]. The law prohibits you [...] contact the sender immediately.[facility] ([facility]) Encounter Details Date Type Department Care Team (Late st Contact Info) Description 11/25/2010 Historical Note [facility] MyHeritage System Devyn Vásquez MD [address] [place] [address] [phone] Social History Tobacco Use Types Packs/Day Years [...] CARRILLO - [facility] [address] [facility] [address] [place] [phone] Brenda Clay MD [address] [facility] [address] [place] [address] 04/15/2026 10:00 AM EDT Office Visit [facility] at [facility] + [facility] [address] [facility] [address] [place] [address] Sena Dominguez PA [address] [facility] [place] [address] documented as of this encounter Visit Diagnoses Not on filedocumented in this encounter Care Teams Wood Pattern Maker Relationship Specialty Start Date End Date Meme Steel MD [address] [place] [address] 105 [place] [address] PCP - General Pediatrics 06/05/18 04/25/22 No Pcp, Pcp PCP - General 06/08/22 07/19/22 Guadalupe Mcbride MD PCP - General Family Medicine 07/20/22 11/01/23 Sena oDminguez PA [address] [place] [address] [place] [address] PCP - BRADY Physician Fire Hydrant Mechanic 11/02/23 Levy Barry MD [address] [place] [address] [place] [address] PCP - General Family Medicine 12/20/23 documented as of this encounter
--- OUTSIDE RECORDS SUMMARY | 2025-07-28 14:39 | XMS_ITS | Encounter Summary ---
Author Organization [facility] work ([facility]) Address [address] [place] [address] Care Team Providers Care Technical Designer Name Role Phone Meme Steel MD Primary Care Provider [phone] No Pcp, Pcp Primary Care Provider Unavailabl Guadalupe Bardales MD Primary Care Provider [phone] Sena Dominguez Unavailable Levy Barry MD Primary Care Provider Unavailab le Source Comments The information that you have received may contain highly confidential and/or federally protected health information. This information has been disclosed to you from records protected by [facility]. The law prohibits you from making [...] error, please contact the sender immediately.[facility] ([facility]) Encounter Details Date Type Department Care Team (Late st Contact Info) Description 03/09/2017 Historical Note [facility] GoodApril System Devyn Vásquez MD [address] [place] [address] [phone] Social History Tobacco Use Types Packs/Day Years [...] LEATHA CARRILLO - [facility] [address] [facility] [address] [place] [phone] Brenda Clay MD [address] [facility] [address] [place] [address] 04/15/2026 10:00 AM EDT Office Visit [facility] [address] [facility] [address] [place] [address] Sena Dominguez PA [address] [facility] [place] [address] documented as of this encounter Visit Diagnoses Not on filedocumented in this encounter Care Teams Technical Designer Relationship Specialty Start Date End Date Meme Steel MD [address] [place] [address] 105 [place] [address] PCP - General Pediatrics 06/05/18 04/25/22 No Pcp, Pcp PCP - General 06/08/22 07/19/22 Guadalupe Mcbride MD PCP - General Family Medicine 07/20/22 11/01/23 Sena Dominguez PA [address] [place] [address] [place] [address] PCP - BRADY Physician Church Business Administrator 11/02/23 Levy Barry MD [address] [place] [address] [place] [address] PCP - General Family Medicine 12/20/23 documented as of this encounter
--- OUTSIDE RECORDS SUMMARY | 2025-07-28 14:39 | XMS_ITS | Encounter Summary ---
Author Organization [facility] work ([facility]) Address [address] [place] [address] Care Team Providers Care Reference Librarian Name Role Phone Meme Steel MD Primary Care Provider [phone] Pcp, Pcp Primary Care Provider Unavailabl Guadalupe Bardales MD Primary Care Provider [phone] Sena Dominguez Unavailable [phone] Levy Barry MD Primary Care Provider Unavailab le Source Comments The information that you have received may contain highly confidential and/or federally protected health information. This information has been disclosed to you from records protected by [facility] [facility]. The law prohibits you from [...] information in error, please contact the sender immediately.[facility] ([facility]) Encounter Details Date Type Department Care Team (Late st Contact Info) Description 03/29/2016 Historical Note [facility] Devyn Vásquez MD [address] [place] [address] [phone] Social History Tobacco Use Types Packs/Day Years [...] CARRILLO - [facility] [address] [place] [phone] Brenda Clay MD [address] [facility] [address] [place] [phone] 04/15/2026 10:00 AM EDT Office Visit [facility]HA [facility] + [facility] [address] [facility] [address] [place] [address] Sena Dominguez PA [address] [facility] [place] [address] documented as of this encounter Visit Diagnoses Not on filedocumented in this encounter Care Teams Reference Librarian Relationship Specialty Start Date End Date Meme Steel MD [address] [place] [address] 105 [place] [address] PCP - General Pediatrics 06/05/18 04/25/22 No Pcp, Pcp PCP - General 06/08/22 07/19/22 Guadalupe Mcbride MD PCP - General Family Medicine 07/20/22 11/01/23 Sena Dominguez PA [address] [place] [address] [place] [address] PCP - BRADY Physician Emergency Service Restorer 11/02/23 Levy Barry MD [address] [place] [address] [place] [address] PCP - General Family Medicine 12/20/23 documented as of this encounter
--- OUTSIDE RECORDS SUMMARY | 2025-07-28 14:39 | XMS_ITS | Encounter Summary ---
Author Organization [facility] work ([facility]) Address [address] [place] [address] Care Team Providers Care International Marketing Manager Name Role Phone Meme Steel MD Primary Care Provider No Pcp, Pcp Primary Care Provider Unavailabl Guadalupe Bardales MD Primary Care Provider [phone] Sena Dominguez Unavailable [phone] Levy Barry MD Primary Care Provider Unavailab le Source Comments The information that you have received may contain highly confidential and/or federally protected health information. This information has been disclosed to you from records protected by [facility]. The law prohibits you from [...] error, please contact the sender immediately.[facility] ([facility]) Encounter Details Date Type Department Care Team (Late st Contact Info) Description 05/18/2011 Historical Note [facility] [employer] System Devyn Vásquez MD [address] [place] [address] [phone] Social History Tobacco Use Types Packs/Day Years [...] CARRILLO - [facility] [address] [facility] [address] [place] [phone] Brenda Clay MD [address] [facility] [address] [place] [address] 04/15/2026 10:00 AM EDT Office Visit [facility] [address] [place] [address] Sena Dominguez PA [address] [facility] [place] [address] documented as of this encounter Visit Diagnoses Not on filedocumented in this encounter Care Teams International Marketing Manager Relationship Specialty Start Date End Date Meme Steel MD [address] [place] [address] 105 [place] [address] PCP - General Pediatrics 06/05/18 04/25/22 No Pcp, Pcp PCP - General 06/08/22 07/19/22 Guadalupe Mcbride MD PCP - General Family Medicine 07/20/22 11/01/23 Sena Dominguez PA [address] [place] [address] [place] [address] PCP - BRADY Physician Corporate Director Of Pharmacy 11/02/23 Levy Barry MD [address] [place] [address] [place] [address] PCP - General Family Medicine 12/20/23 documented as of this encounter
--- OUTSIDE RECORDS SUMMARY | 2025-07-28 14:39 | XMS_ITS | Encounter Summary ---
Author Organization [facility] work ([facility]) Address [address] [place] [address] Care Team Providers Care Supervisor Finishing Department Name Role Phone Meme Steel MD Primary Care Provider [phone] Pcp, Pcp Primary Care Provider Unavailabl Guadalupe Bardales MD Primary Care Provider [phone] Sena Dominguez Unavailable Levy Barry MD Primary Care Provider Unavailab le Source Comments The information that you have received may contain highly confidential and/or federally protected health information. This information has been disclosed to you from records protected by [employer] [facility]. The law prohibits you [...] the sender immediately.[facility] ([facility]) Encounter Details Date Type Department Care Team (Late st Contact Info) Description 11/10/2005 Historical Note [facility] [employer] System Devyn Vásquez MD [address] [place] [address] [phone] Social History Tobacco Use Types Packs/Day Years [...] [facility] [address] [facility] [address] [place] [phone] Brenda Clay MD [address] [facility] [address] [place] [address] 04/15/2026 10:00 AM EDT Office Visit LEATHA [facility] at [facility] + [facility] [address] [facility] [facility] [address] [place] [address] Sena Dominguez PA [address] [facility] [place] [address] documented as of this encounter Visit Diagnoses Not on filedocumented in this encounter Care Teams Supervisor Finishing Department Relationship Specialty Start Date End Date Meme Steel MD [address] [place] [address] 105 [place] [address] PCP - General Pediatrics 06/05/18 04/25/22 No Pcp, Pcp PCP - General 06/08/22 07/19/22 Guadalupe Mcbride MD PCP - General Family Medicine 07/20/22 11/01/23 Sena Dominguez PA [address] [place] [address] [place] [address] PCP - BRADY Physician Equipment Service Engineer 11/02/23 Levy Barry MD [address] [place] [address] [place] [address] PCP - General Family Medicine 12/20/23 documented as of this encounter
--- OUTSIDE RECORDS SUMMARY | 2025-07-28 14:40 | XMS_ITS | Encounter Summary ---
Author Organization [facility] work ([facility]) Address [address] [place] [address] Care Team Providers Care Manager Distribution Center Name Role Phone Meme Steel MD Primary Care Provider [phone] Pcp, Pcp Primary Care Provider Unavailabl Guadalupe Bardales MD Primary Care Provider [phone] Sena Dominguez Unavailable [phone] Levy Barry MD Primary Care Provider Unavailab le Source Comments The information that you have received may contain highly confidential and/or federally protected health information. This information has been disclosed to you from records protected by [facility]. The law prohibits you from [...] please contact the sender immediately.[facility] ([facility]) Encounter Details Date Type Department Care Team (Late st Contact Info) Description 09/21/2010 Historical Note [facility] Re[employer]Mu System Devyn Vásquez MD [address] [place] [address] [phone] Social History Tobacco Use Types Packs/Day Years [...] Visit LEATHA CARRILLO - [facility] [address] [facility] [address] [place] [phone] Brenda Clay MD [address] [facility] [address] [place] [address] 04/15/2026 10:00 AM EDT Office Visit LEATHA [facility] at [facility] + [facility] [address] [facility] [address] [place] [address] Sena Dominguez PA [address] [facility] [place] [address] documented as of this encounter Visit Diagnoses Not on filedocumented in this encounter Care Teams Manager Distribution Center Relationship Specialty Start Date End Date Meme Steel MD [address] [place] [address] 105 [place] [address] PCP - General Pediatrics 06/05/18 04/25/22 No Pcp, Pcp PCP - General 06/08/22 07/19/22 Guadalupe Mcbride MD PCP - General Family Medicine 07/20/22 11/01/23 Sena Dominguez PA [address] [place] [address] [place] [address] PCP - BRADY Physician Cat Scanner Operator 11/02/23 Levy Barry MD [address] [place] [address] [place] [address] PCP - General Family Medicine 12/20/23 documented as of this encounter
--- OUTSIDE RECORDS SUMMARY | 2025-07-28 14:40 | XMS_ITS | Encounter Summary ---
Author Organization [facility] work ([facility]) Address [address] [place] [address] Care Team Providers Care Maintenance Mechanic Name Role Phone Meme Steel MD Primary Care Provider [phone] No Pcp, Pcp Primary Care Provider Unavailabl Guadalupe Bardales MD Primary Care Provider [phone] Sena Dominguez Unavailable Levy Barry MD Primary Care Provider Unavailab le Source Comments The information that you have received may contain highly confidential and/or federally protected health information. This information has been disclosed to you from records protected by [employer]. The law prohibits you from making [...] in error, please contact the sender immediately. ([facility]) Encounter Details Date Type Department Care Team (Late st Contact Info) Description 01/16/2017 Historical Note [facility] Echoing Green System Devyn Vásquez MD [address] [place] [address] [phone] Social History Tobacco Use Types Packs/Day Years [...] CARRILLO - [facility] [address] [facility] [address] [place] [phone] Brenda Clay MD [address] [facility] [address] [place] [phone] 04/15/2026 10:00 AM EDT Office Visit LEATHA Primary Care at [facility] + [facility] [address] [facility] [address] [place] [address] Sena Dominguez PA [address] [facility] [place] [address] documented as of this encounter Visit Diagnoses Not on filedocumented in this encounter Care Teams Maintenance Mechanic Relationship Specialty Start Date End Date Meme Steel MD [address] [place] [address] 105 [place] [address] PCP - General Pediatrics 06/05/18 04/25/22 No Pcp, Pcp PCP - General 06/08/22 07/19/22 Guadalupe Mcbride MD PCP - General Family Medicine 07/20/22 11/01/23 Sena Dominguez PA [address] [place] [address] [place] [address] PCP - BRADY Physician Lisw 11/02/23 Levy Barry MD [address] [place] [address] [place] [address] PCP - General Family Medicine 12/20/23 documented as of this encounter
--- OUTSIDE RECORDS SUMMARY | 2025-07-28 14:40 | XMS_ITS | Encounter Summary ---
Author Organization [facility] work ([facility]) Address [address] [place] [address] Care Team Providers Care Traverse Rod Assembler Name Role Phone Meme Steel MD Primary Care Provider [phone] No Pcp, Pcp Primary Care Provider Unavailabl Guadalupe Bardales MD Primary Care Provider [phone] Sena Dominguez Unavailable Levy Barry MD Primary Care Provider Unavailab le Source Comments The information that you have received may contain highly confidential and/or federally protected health information. This information has been disclosed to you from records protected by [facility]. The law prohibits you [...] [facility] ([facility]) Encounter Details Date Type Department Care Team (Late st Contact Info) Description 10/27/2016 Historical Note [facility] [employer] Assessment [facility]res [facility] Devyn Vásquez MD [address] [place] [address] [phone] Social History Tobacco Use Types Packs/Day Years [...] CARRILLO - [facility] [address] [facility] [address] [place] [phone] Brenda Clay MD [address] [facility] [address] [place] [address] 04/15/2026 10:00 AM EDT Office Visit [facility]HA [facility] at [facility] + [facility] [address] [facility] [address] [place] [address] Sena Dominguez PA [address] [facility] [place] [address] documented as of this encounter Visit Diagnoses Not on filedocumented in this encounter Care Teams Traverse Rod Assembler Relationship Specialty Start Date End Date Meme Steel MD [address] [place] [address] 105 [place] [address] PCP - General Pediatrics 06/05/18 04/25/22 No Pcp, Pcp PCP - General 06/08/22 07/19/22 Guadalupe Mcbride MD PCP - General Family Medicine 07/20/22 11/01/23 Sena Dominguez PA [address] [place] [address] [place] [address] PCP - BRADY Physician Edge Runner 11/02/23 Levy Barry MD [address] [place] [address] [place] [address] PCP - General Family Medicine 12/20/23 documented as of this encounter
--- OUTSIDE RECORDS SUMMARY | 2025-07-28 14:40 | XMS_ITS | Encounter Summary ---
Author Organization [facility] work ([facility]) Address [address] [place] [address] Care Team Providers Care Auto Body Straightener Name Role Phone Meme Steel MD Primary Care Provider [phone] No Pcp, Pcp Primary Care Provider Unavailabl Guadalupe Bardales MD Primary Care Provider Sena Dominguez Unavailable [phone] Levy Barry MD Primary Care Provider Unavailab le Source Comments The information that you have received may contain highly confidential and/or federally protected health information. This information has been disclosed to you from records protected by [facility]. The law prohibits [...] error, please contact the sender immediately.[facility] ([facility]) Encounter Details Date Type Department Care Team (Late st Contact Info) Description 10/29/2009 Historical Note [facility] [employer] System Devyn Vásquez MD [address] [place] [address] [phone] Social History Tobacco Use Types Packs/Day Years [...] Visit LEATHA CARRILLO - [facility] [address] [facility] [address] [place] [phone] Brenda Clay MD [address] [facility] [address] [place] [phone] 04/15/2026 10:00 AM EDT Office Visit LEATHA Primary [facility] at [facility] + [facility] [address] [facility] [address] [place] [address] Sena Dominguez PA [address] [facility] [place] [address] documented as of this encounter Visit Diagnoses Not on filedocumented in this encounter Care Teams Auto Body Straightener Relationship Specialty Start Date End Date Meme Steel MD [address] [place] [address] [place] [address] PCP - General Pediatrics 06/05/18 04/25/22 No Pcp, Pcp PCP - General 06/08/22 07/19/22 Guadalupe Mcbride MD PCP - General Family Medicine 07/20/22 11/01/23 Sena Dominguez PA [address] [place] [address] [place] [address] PCP - BRADY Physician Hot Water Heater Installer 11/02/23 Levy Barry MD [address] [place] [address] [place] [address] PCP - General Family Medicine 12/20/23 documented as of this encounter
--- OUTSIDE RECORDS SUMMARY | 2025-07-28 14:40 | XMS_ITS | Encounter Summary ---
Author Organization [facility] work ([facility]) Address [address] [place] [address] Care Team Providers Care Clam Dredger Name Role Phone Meme Steel MD Primary Care Provider No Pcp, Pcp Primary Care Provider Unavailabl Guadalupe Bardales MD Primary Care Provider [phone] Sena Dominguez Unavailable [phone] Levy Barry MD Primary Care Provider Unavailab le Source Comments The information that you have received may contain highly confidential and/or federally protected health information. This information has been disclosed to you from records protected by [facility]. The law prohibits you [...] the sender immediately.[facility] ([facility]) Encounter Details Date Type Department Care Team (Late st Contact Info) Description 08/30/2005 Historical Note [facility] SurgiLight System Devyn Vásquez MD [address] [place] [address] [phone] Social History Tobacco Use Types Packs/Day Years [...] LEATHA CARRILLO - [facility] [address] [facility] [address] [place] [phone] Brenda Clay MD [address] [facility] [address] [place] [phone] 04/15/2026 10:00 AM EDT Office Visit LEATHA Primary Care at [facility] + [facility] [address] [facility] [address] [place] [address] Sena Dominguez PA [address] [facility] [place] [address] documented as of this encounter Visit Diagnoses Not on filedocumented in this encounter Care Teams Clam Dredger Relationship Specialty Start Date End Date Meme Steel MD [address] [place] [address] 105 [place] [address] PCP - General Pediatrics 06/05/18 04/25/22 No Pcp, Pcp PCP - General 06/08/22 07/19/22 Guadalupe Mcbride MD PCP - General Family Medicine 07/20/22 11/01/23 Sena Dominguez PA [address] [place] [address] [place] [address] PCP - BRADY Physician Transportation Department Head 11/02/23 Levy Barry MD [address] [place] [address] [place] [address] PCP - General Family Medicine 12/20/23 documented as of this encounter
--- OUTSIDE RECORDS SUMMARY | 2025-07-28 14:40 | XMS_ITS | Encounter Summary ---
Author Organization [facility] work ([facility]) Address [address] [place] [address] Care Team Providers Care Sanding Supervisor Name Role Phone Meme Steel MD Primary Care Provider [phone] Pcp, Pcp Primary Care Provider Unavailabl Guadalupe Bardales MD Primary Care Provider [phone] Sena Domignuez Unavailable [phone] Levy Barry MD Primary Care Provider Unavailab le Source Comments The information that you have received may contain highly confidential and/or federally protected health information. This information has been disclosed to you from records protected by [facility]. The law prohibits you from [...] the sender immediately.[facility] ([facility]) Encounter Details Date Type Department Care Team (Late st Contact Info) Description 10/27/2016 Historical Note [facility] ZeroCater System Devyn Vásquez MD [address] [place] [address] [phone] Social History Tobacco Use Types Packs/Day Years [...] - [facility] [address] [facility] [address] [place] [phone] Brenda Clay MD [address] [facility] [address] [place] [address] 04/15/2026 10:00 AM EDT Office Visit [facility]HA [facility] + [facility] [address] [facility] [address] [place] [address] Sena Dominguez PA [address] [facility] [place] [address] documented as of this encounter Visit Diagnoses Not on filedocumented in this encounter Care Teams Sanding Supervisor Relationship Specialty Start Date End Date Meme Steel MD [address] [place] [address] 105 [place] [address] PCP - General Pediatrics 06/05/18 04/25/22 No Pcp, Pcp PCP - General 06/08/22 07/19/22 Guadalupe Mcbride MD PCP - General Family Medicine 07/20/22 11/01/23 Sena Dominguez PA [address] [place] [address] [place] [address] PCP - BRADY Physician Kitchen Operator 11/02/23 Levy Barry MD [address] [place] [address] [place] [address] PCP - General Family Medicine 12/20/23 documented as of this encounter
--- OUTSIDE RECORDS SUMMARY | 2025-07-28 14:40 | XMS_ITS | Encounter Summary ---
Author Organization [facility] work ([facility]) Address [address] [place] [address] Care Team Providers Care Cutting Machine Tender Decorative Name Role Phone Meme Steel MD Primary Care Provider No Pcp, Pcp Primary Care Provider Unavailabl Guadalupe Bardales MD Primary Care Provider [phone] Sena Dominguez Unavailable [phone] Levy Barry MD Primary Care Provider Unavailab le Source Comments The information that you have received may contain highly confidential and/or federally protected health information. This information has been disclosed to you from records protected by [facility]. The law prohibits you [...] the sender immediately.[facility] ([facility]) Encounter Details Date Type Department Care Team (Late st Contact Info) Description 04/08/2009 Historical Note [facility] [employer] System Devyn Vásquez MD [address] [place] [address] [phone] Social History Tobacco Use Types Packs/Day Years [...] LEATHA CARRILLO - [facility] [address] [facility] [address] [place] [phone] Brenda Clay MD [address] [facility] [address] [place] [phone] 04/15/2026 10:00 AM EDT Office Visit LEATHA [facility] at [facility] + [facility] [address] [facility] [address] [place] [address] Sena Dominguez PA [address] [facility] [place] [address] documented as of this encounter Visit Diagnoses Not on filedocumented in this encounter Care Teams Cutting Machine Tender Decorative Relationship Specialty Start Date End Date Meme Steel MD [address] [place] [address] 105 [place] [address] PCP - General Pediatrics 06/05/18 04/25/22 No Pcp, Pcp PCP - General 06/08/22 07/19/22 Guadalupe Mcbride MD PCP - General Family Medicine 07/20/22 11/01/23 Sena Dominguez PA [address] [place] [address] [place] [address] PCP - BRADY Physician Cloth Hand 11/02/23 Levy Barry MD [address] [place] [address] [place] [address] PCP - General Family Medicine 12/20/23 documented as of this encounter
--- OUTSIDE RECORDS SUMMARY | 2025-07-28 14:40 | XMS_ITS | Encounter Summary ---
Author Organization [facility] work ([facility]) Address [address] [place] [address] Care Team Providers Care Police Cadet Name Role Phone Meme Steel MD Primary Care Provider [phone] Pcp, Pcp Primary Care Provider Unavailabl Guadalupe Bardales MD Primary Care Provider [phone] Sena Dominguez Unavailable [phone] Levy Barry MD Primary Care Provider Unavailab le Source Comments The information that you have received may contain highly confidential and/or federally protected health information. This information has been disclosed to you from records protected by [facility]. The law prohibits you from making [...] error, please contact the sender immediately.[facility] ([facility]) Encounter Details Date Type Department Care Team (Late st Contact Info) Description 08/17/2010 Historical Note SVMG [email or web address] System Devyn Vásquez MD [address] [place] [address] [phone] Social History Tobacco Use Types Packs/Day Years [...] LEATHA CARRILLO - [facility] [address] [facility] [address] [place] [phone] Brenda Clay MD [address] [facility] [address] [place] [address] 04/15/2026 10:00 AM EDT Office Visit [facility] at [facility] + [facility] [address] [facility] [address] [place] [address] Sena Dominguez PA [address] [facility] [place] [address] documented as of this encounter Visit Diagnoses Not on filedocumented in this encounter Care Teams Police Cadet Relationship Specialty Start Date End Date Meme Steel MD [address] [place] [address] 105 [place] [address] PCP - General Pediatrics 06/05/18 04/25/22 No Pcp, Pcp PCP - General 06/08/22 07/19/22 Guadalupe Mcbride MD PCP - General Family Medicine 07/20/22 11/01/23 Sena Dominguez PA [address] [place] [address] [place] [address] PCP - BRADY Physician Software Analyst 11/02/23 Levy Barry MD [address] [place] [address] [place] [address] PCP - General Family Medicine 12/20/23 documented as of this encounter
--- OUTSIDE RECORDS SUMMARY | 2025-07-28 14:40 | XMS_ITS | Encounter Summary ---
Author Organization [facility] work ([facility]) Address [address] [place] [address] Care Team Providers Care Medical Transcription Name Role Phone Meme Steel MD Primary Care Provider [phone] Pcp, Pcp Primary Care Provider Unavailabl Guadalupe Bardales MD Primary Care Provider [phone] Sena Dominguez Unavailable [phone] Levy Barry MD Primary Care Provider Unavailab le Source Comments The information that you have received may contain highly confidential and/or federally protected health information. This information has been disclosed to you from records protected by [facility]. The law prohibits [...] sender immediately.[facility] ([facility]) Encounter Details Date Type Department Care Team (Late st Contact Info) Description 08/23/2010 Historical Note SVMG Publictivity System Devyn Vásquez MD [address] [place] [address] [phone] Social History Tobacco Use Types Packs/Day Years [...] Visit LEATHA CARRILLO - [facility] [address] [facility] [address] [place] [phone] Brenda Clay MD [address] [facility] [address] [place] [address] 04/15/2026 10:00 AM EDT Office Visit LEATHA Primary [facility] at [facility] [address] [facility] [address] [place] [address] Sena Dominguez PA [address] [facility] [place] [address] documented as of this encounter Visit Diagnoses Not on filedocumented in this encounter Care Teams Medical Transcription Relationship Specialty Start Date End Date Meme Steel MD [address] [place] [address] 105 [place] [address] PCP - General Pediatrics 06/05/18 04/25/22 No Pcp, Pcp PCP - General 06/08/22 07/19/22 Guadalupe Mcbride MD PCP - General Family Medicine 07/20/22 11/01/23 Sena Dominguez PA [address] [place] [address] [place] [address] PCP - BRADY Physician Engraving Supervisor 11/02/23 Levy Barry MD [address] [place] [address] [place] [address] PCP - General Family Medicine 12/20/23 documented as of this encounter
--- OUTSIDE RECORDS SUMMARY | 2025-07-28 14:40 | XMS_ITS | Encounter Summary ---
Author Organization [facility] work ([facility]) Address [address] [place] [address] Care Team Providers Care Design Coordinator Name Role Phone Meme Steel MD Primary Care Provider [phone] No Pcp, Pcp Primary Care Provider Unavailabl Guadalupe Bardales MD Primary Care Provider [phone] Sena Dominguez Unavailable [phone] Levy Barry MD Primary Care Provider Unavailab le Source Comments The information that you have received may contain highly confidential and/or federally protected health information. This information has been disclosed to you from records protected by [facility]. The law prohibits you from [...] contact the sender immediately.[facility] ([facility]) Encounter Details Date Type Department Care Team (Late st Contact Info) Description 08/30/2005 Historical Note SVMG ClearStory Data System Devyn Vásquez MD [address] [place] [address] [phone] Social History Tobacco Use Types Packs/Day Years [...] LEATHA CARRILLO - [facility] [address] [facility] [address] [place] [phone] Brenda Clay MD [address] [facility] [address] [place] [address] 04/15/2026 10:00 AM EDT Office Visit LEATHA [facility] at [facility] [address] [facility] [address] [place] [address] Sena Dominguez PA [address] [facility] [place] [address] documented as of this encounter Visit Diagnoses Not on filedocumented in this encounter Care Teams Design Coordinator Relationship Specialty Start Date End Date Meme Steel MD [address] [place] [address] [place] [address] PCP - General Pediatrics 06/05/18 04/25/22 No Pcp, Pcp PCP - General 06/08/22 07/19/22 Guadalupe Mcbride MD PCP - General Family Medicine 07/20/22 11/01/23 Sena Dominguez PA [address] [place] [address] [place] [address] PCP - BRADY Physician Animal Maintenance Supervisor 11/02/23 Levy Barry MD [address] [place] [address] [place] [address] PCP - General Family Medicine 12/20/23 documented as of this encounter
--- OUTSIDE RECORDS SUMMARY | 2025-07-28 14:40 | XMS_ITS | Encounter Summary ---
Author Organization [facility] work ([facility]) Address [address] [place] [address] Care Team Providers Care Type Bar And Segment Assembler Name Role Phone Meme Steel MD Primary Care Provider [phone] Pcp, Pcp Primary Care Provider Unavailabl Guadalupe Bardales MD Primary Care Provider [phone] Sena Dominguez Unavailable [phone] Levy Barry MD Primary Care Provider Unavailab le Source Comments The information that you have received may contain highly confidential and/or federally protected health information. This information has been disclosed to you from records protected by [facility]. The law prohibits you from [...] the sender immediately.[facility] [place] [facility] ([facility]) Encounter Details Date Type Department Care Team (Late st Contact Info) Description 01/16/2017 Historical Note SVMG AppNexus System Devyn Vásquez MD [address] [place] [address] [phone] Social History Tobacco Use Types Packs/Day Years [...] LEATHA CARRILLO - [facility] [address] [facility] [address] [place] [phone] Brenda Clay MD [address] [facility] [address] [place] [address] 04/15/2026 10:00 AM EDT Office Visit [facility]HA [facility] at [facility] [address] [facility] [address] [place] [address] Sena Dominguez PA [address] [facility] [place] [address] documented as of this encounter Visit Diagnoses Not on filedocumented in this encounter Care Teams Type Bar And Segment Assembler Relationship Specialty Start Date End Date Meme Steel MD [address] [place] [address] 105 [place] [address] PCP - General Pediatrics 06/05/18 04/25/22 No Pcp, Pcp PCP - General 06/08/22 07/19/22 Guadalupe Mcbride MD PCP - General Family Medicine 07/20/22 11/01/23 Sena Dominguez PA [address] [place] [address] [place] [address] PCP - BRADY Physician Drop Crew Laborer 11/02/23 Levy Barry MD [address] [place] [address] [place] [address] PCP - General Family Medicine 12/20/23 documented as of this encounter
--- OUTSIDE RECORDS SUMMARY | 2025-07-28 14:40 | XMS_ITS | Encounter Summary ---
Author Organization [facility] work ([facility]) Address [address] [place] [address] Care Team Providers Care Product Consultant Name Role Phone Meme Steel MD Primary Care Provider [phone] Pcp, Pcp Primary Care Provider Unavailabl Guadalupe Bardales MD Primary Care Provider [phone] Sena Dominguez Unavailable [phone] Levy Barry MD Primary Care Provider Unavailab le Source Comments The information that you have received may contain highly confidential and/or federally protected health information. This information has been disclosed to you from records protected by [facility]. The law prohibits you [...] please contact the sender immediately.[facility] ([facility]) Encounter Details Date Type Department Care Team (Late st Contact Info) Description 09/28/2005 Historical Note SVMG GT Energy System Devyn Vásquez MD [address] [place] [address] [phone] Social History Tobacco Use Types Packs/Day Years [...] Visit LEATHA CARRILLO - [facility] [address] [facility] [address] [place] [phone] Brenda Clay MD [address] [facility] [address] [place] [address] 04/15/2026 10:00 AM EDT Office Visit LEATHA [facility] at [facility] [address] [facility] [address] [place] [address] Sena Dominguez PA [address] [facility] [place] [address] documented as of this encounter Visit Diagnoses Not on filedocumented in this encounter Care Teams Product Consultant Relationship Specialty Start Date End Date Meme Steel MD [address] [place] [address] 105 [place] [address] PCP - General Pediatrics 06/05/18 04/25/22 No Pcp, Pcp PCP - General 06/08/22 07/19/22 Guadalupe Mcbride MD PCP - General Family Medicine 07/20/22 11/01/23 Sena Dominguez PA [address] [place] [address] [place] [address] PCP - BRADY Physician Telepathist 11/02/23 Levy Barry MD [address] [place] [address] [place] [address] PCP - General Family Medicine 12/20/23 documented as of this encounter
--- OUTSIDE RECORDS SUMMARY | 2025-07-28 14:40 | XMS_ITS | Encounter Summary ---
Author Organization [facility] work ([facility]) Address [address] [place] [address] Care Team Providers Care Tool Dispatcher Name Role Phone Meme Steel MD Primary Care Provider [phone] Pcp, Pcp Primary Care Provider Unavailabl Guadalupe Bardales MD Primary Care Provider [phone] Sena Dominguez Unavailable [phone] Levy Barry MD Primary Care Provider Unavailab le Source Comments The information that you have received may contain highly confidential and/or federally protected health information. This information has been disclosed to you from records protected by [facility]. The law [...] contact the sender immediately.[facility] ([facility]) Encounter Details Date Type Department Care Team (Late st Contact Info) Description 02/06/2010 Historical Note SVMG CHARMS PPEC System Devyn Vásquez MD [address] [place] [address] [phone] Social History Tobacco Use Types Packs/Day Years [...] CARRILLO - [facility] [address] [facility] [address] [place] [phone] Brenda Clay MD [address] [facility] [address] [place] [address] 04/15/2026 10:00 AM EDT Office Visit LEATHA Primary [facility] at [facility] + [facility] [address] [facility] [address] [place] [address] Sena Dominguez PA [address] [facility] [place] [address] documented as of this encounter Visit Diagnoses Not on filedocumented in this encounter Care Teams Tool Dispatcher Relationship Specialty Start Date End Date Meme Steel MD [address] [place] [address] 105 [place] [address] PCP - General Pediatrics 06/05/18 04/25/22 No Pcp, Pcp PCP - General 06/08/22 07/19/22 Guadalupe Mcbride MD PCP - General Family Medicine 07/20/22 11/01/23 Sena Dominguez PA [address] [place] [address] [place] [address] PCP - BRADY Physician Leather Scraper 11/02/23 Levy Barry MD [address] [place] [address] [place] [address] PCP - General Family Medicine 12/20/23 documented as of this encounter
--- OUTSIDE RECORDS SUMMARY | 2025-07-28 14:40 | XMS_ITS | Encounter Summary ---
Author Organization [facility] work ([facility]) Address [address] [place] [address] Care Team Providers Care Pipe Coverer And Insulator Name Role Phone Meme Steel MD Primary Care Provider [phone] Pcp, Pcp Primary Care Provider Unavailabl Guadalupe Bardales MD Primary Care Provider [phone] Sena Dominguez Unavailable [phone] Levy Barry MD Primary Care Provider Unavailab le Source Comments The information that you have received may contain highly confidential and/or federally protected health information. This information has been disclosed to you from records protected by [facility]. The law prohibits you [...] please contact the sender immediately.[facility] ([facility]) Encounter Details Date Type Department Care Team (Late st Contact Info) Description 10/27/2016 Historical Note SVMG OutTrippin System Devyn Vásquez MD [address] [place] [address] [phone] Social History Tobacco Use Types Packs/Day Years [...] CARRILLO - [facility] [address] [facility] [address] [place] [phone] Brenda Clay MD [address] [facility] [address] [place] [phone] 04/15/2026 10:00 AM EDT Office Visit LEATHA Primary [facility] at [facility] [address] [facility] [address] [place] [address] Sena Dominguez PA [address] [facility] [place] [address] documented as of this encounter Visit Diagnoses Not on filedocumented in this encounter Care Teams Pipe Coverer And Insulator Relationship Specialty Start Date End Date Meme Steel MD [address] [place] [address] 105 [place] [address] PCP - General Pediatrics 06/05/18 04/25/22 No Pcp, Pcp PCP - General 06/08/22 07/19/22 Guadalupe Mcbride MD PCP - General Family Medicine 07/20/22 11/01/23 Sena Dominguez PA [address] [place] [address] [place] [address] PCP - BRADY Physician Television Technician 11/02/23 Levy Barry MD [address] [place] [address] [place] [address] PCP - General Family Medicine 12/20/23 documented as of this encounter
--- OUTSIDE RECORDS SUMMARY | 2025-07-28 14:40 | XMS_ITS | Encounter Summary ---
Author Organization [facility] work ([facility]) Address [address] [place] [address] Care Team Providers Care Backup Engineer Name Role Phone Meme Steel MD Primary Care Provider [phone] Pcp, Pcp Primary Care Provider Unavailabl Guadalupe Bardales MD Primary Care Provider [phone] Sena Dominguez Unavailable [phone] Levy Barry MD Primary Care Provider Unavailab le Source Comments The information that you have received may contain highly confidential and/or federally protected health information. This information has been disclosed to you from records protected by [facility]. The law prohibits you from [...] contact the sender immediately.[facility] ([facility]) Encounter Details Date Type Department Care Team (Late st Contact Info) Description 2004 Historical Note SVMG Spotlight Innovation System Devyn Vásquez MD [address] [place] [address] [phone] Social History Tobacco Use Types Packs/Day Years [...] CARRILLO - [facility] [address] [facility] [address] [place] [phone] Brenda Clay MD [address] [facility] [address] [place] [address] 04/15/2026 10:00 AM EDT Office Visit LE[facility]HA Primary [facility] at [facility] + [facility] [address] [facility] [address] [place] [address] Sena Dominguez PA [address] [facility] [place] [address] documented as of this encounter Visit Diagnoses Not on filedocumented in this encounter Care Teams Backup Engineer Relationship Specialty Start Date End Date Meme Steel MD [address] [place] [address] 105 [place] [address] PCP - General Pediatrics 06/05/18 04/25/22 No Pcp, Pcp PCP - General 06/08/22 07/19/22 Guadalupe Mcbride MD PCP - General Family Medicine 07/20/22 11/01/23 Sena Dominguez PA [address] [place] [address] [place] [address] PCP - BRADY Physician Beauty Parlor Cleaner 11/02/23 Levy Barry MD [address] [place] [address] [place] [address] PCP - General Family Medicine 12/20/23 documented as of this encounter
--- OUTSIDE RECORDS SUMMARY | 2025-07-28 14:40 | XMS_ITS | Encounter Summary ---
Author Organization [facility] work ([facility]) Address [address] [place] [address] Care Team Providers Care Bookmaker'S Clerk Name Role Phone Meme Steel MD Primary Care Provider [phone] No Pcp, Pcp Primary Care Provider Unavailabl Guadalupe Bardales MD Primary Care Provider Sena Dominguez Unavailable [phone] Levy Barry MD Primary Care Provider Unavailab le Source Comments The information that you have received may contain highly confidential and/or federally protected health information. This information has been disclosed to you from records protected by [facility]. The law prohibits you from making [...] information in error, please contact the sender immediately.[facility] ([facility]) Encounter Details Date Type Department Care Team (Late st Contact Info) Description 09/10/2009 Historical Note SVMG Intuitive Motion System Devyn Vásquez MD [address] [place] [address] [phone] Social History Tobacco Use Types Packs/Day Years [...] - [facility] [address] [facility] [address] [place] [phone] Brenda Clay MD [address] [facility] [address] [place] [phone] 04/15/2026 10:00 AM EDT Office Visit LEATHA Primary [facility] at [facility] + [facility] [address] [facility] [address] [place] [address] Sena Dominguez PA [address] [facility] [place] [address] documented as of this encounter Visit Diagnoses Not on filedocumented in this encounter Care Teams Bookmaker'S Clerk Relationship Specialty Start Date End Date Meme Steel MD [address] [place] [address] 105 [place] [address] PCP - General Pediatrics 06/05/18 04/25/22 No Pcp, Pcp PCP - General 06/08/22 07/19/22 Guadalupe Mcbride MD PCP - General Family Medicine 07/20/22 11/01/23 Sena Dominguez PA [address] [place] [address] [place] [address] PCP - BRADY Physician Ranch Cook 11/02/23 Levy Barry MD [address] [place] [address] [place] [address] PCP - General Family Medicine 12/20/23 documented as of this encounter
--- OUTSIDE RECORDS SUMMARY | 2025-07-28 14:40 | XMS_ITS | Encounter Summary ---
Author Organization [facility] work ([facility]) Address [address] [place] [address] Care Team Providers Care Social Services Specialist Name Role Phone Meme Steel MD Primary Care Provider [phone] No Pcp, Pcp Primary Care Provider Unavailabl Guadalupe Bardales MD Primary Care Provider [phone] Sena Dominguez Unavailable [phone] Levy Barry MD Primary Care Provider Unavailab le Source Comments The information that you have received may contain highly confidential and/or federally protected health information. This information has been disclosed to you from records protected by [facility]. The law prohibits you from making [...] immediately.[facility] ([facility]) Encounter Details Date Type Department Care Team (Late st Contact Info) Description 07/13/2016 Historical Note SVMG CleanEdison System Devyn Vásquez MD [address] [place] [address] [phone] Social History Tobacco Use Types Packs/Day Years [...] LEATHA CARRILLO - [facility] [address] [facility] [address] [place] [phone] Brenda Clay MD [address] [facility] [address] [place] [address] 04/15/2026 10:00 AM EDT Office Visit LE[facility]HA [facility] at [facility] [address] [facility] [address] [place] [address] Sena Dominguez PA [address] [facility] [place] [address] documented as of this encounter Visit Diagnoses Not on filedocumented in this encounter Care Teams Social Services Specialist Relationship Specialty Start Date End Date Meme Steel MD [address] [place] [address] 105 [place] [address] PCP - General Pediatrics 06/05/18 04/25/22 No Pcp, Pcp PCP - General 06/08/22 07/19/22 Guadalupe Mcbride MD PCP - General Family Medicine 07/20/22 11/01/23 Sena Dominguez PA [address] [place] [address] [place] [address] PCP - BRADY Physician Home Theater Installer 11/02/23 Levy Barry MD [address] [place] [address] [place] [address] PCP - General Family Medicine 12/20/23 documented as of this encounter
--- OUTSIDE RECORDS SUMMARY | 2025-07-28 14:40 | XMS_ITS | Encounter Summary ---
Author Organization [facility] work ([facility]) Address [address] [place] [address] Care Team Providers Care Registered Land Surveyor Name Role Phone Meme Steel MD Primary Care Provider [phone] Pcp, Pcp Primary Care Provider Unavailabl Guadalupe Bardales MD Primary Care Provider [phone] Sena Dominguez Unavailable [phone] Levy Barry MD Primary Care Provider Unavailab le Source Comments The information that you have received may contain highly confidential and/or federally protected health information. This information has been disclosed to you from records protected by [facility]. The law prohibits you [...] in error, please contact the sender immediately.[facility] ([facility]) Encounter Details Date Type Department Care Team (Late st Contact Info) Description 02/02/2016 Historical Note [facility] [employer] System Devyn Vásquez MD [address] [place] [address] [phone] Social History Tobacco Use Types Packs/Day Years [...] LEATHA CARRILLO - [facility] [address] [facility] [address] [place] [phone] Brenda Clay MD [address] [facility] [address] [place] [address] 04/15/2026 10:00 AM EDT Office Visit [facility]HA [facility] at [facility] + [facility] [address] [facility] [address] [place] [address] Sena Dominguez PA [address] [facility] [place] [address] documented as of this encounter Visit Diagnoses Not on filedocumented in this encounter Care Teams Registered Land Surveyor Relationship Specialty Start Date End Date Meme Steel MD [address] [place] [address] [place] [address] PCP - General Pediatrics 06/05/18 04/25/22 No Pcp, Pcp PCP - General 06/08/22 07/19/22 Guadalupe Mcbride MD PCP - General Family Medicine 07/20/22 11/01/23 Sena Dominguez PA [address] [place] [address] [place] [address] PCP - BRADY Physician Paralegal Legal Secretary 11/02/23 Levy Barry MD [address] [place] [address] [place] [address] PCP - General Family Medicine 12/20/23 documented as of this encounter
--- OUTSIDE RECORDS SUMMARY | 2025-07-28 14:40 | XMS_ITS | Encounter Summary ---
Author Organization [facility] work ([facility]) Address [address] [place] [address] Care Team Providers Care Telemarketer Name Role Phone Meme Steel MD Primary Care Provider [phone] Pcp, Pcp Primary Care Provider Unavailabl Guadalupe Bardales MD Primary Care Provider [phone] Sena Dominguez Unavailable [phone] Levy Barry MD Primary Care Provider Unavailab le Source Comments The information that you have received may contain highly confidential and/or federally protected health information. This information has been disclosed to you from records protected by [facility]. The law prohibits you from [...] please contact the sender immediately.[facility] ([facility]) Encounter Details Date Type Department Care Team (Late st Contact Info) Description 03/09/2016 Historical Note [facility] PEVESA System Devyn Vásquez MD [address] [place] [address] [phone] Social History Tobacco Use Types Packs/Day Years [...] LEATHA CARRILLO - [facility] [address] [facility] [address] [place] [phone] Brenda Clay MD [address] [facility] [address] [place] [address] 04/15/2026 10:00 AM EDT Office Visit LEATHA [facility] at [facility] + [facility] [address] [facility] [address] [place] [address] Sena Dominguez PA [address] [facility] [place] [address] documented as of this encounter Visit Diagnoses Not on filedocumented in this encounter Care Teams Telemarketer Relationship Specialty Start Date End Date Meme Steel MD [address] [place] [address] [place] [address] PCP - General Pediatrics 06/05/18 04/25/22 No Pcp, Pcp PCP - General 06/08/22 07/19/22 Guadalupe Mcbride MD PCP - General Family Medicine 07/20/22 11/01/23 Sena Dominguez PA [address] [place] [address] [place] [address] PCP - BRADY Physician Waste Water Worker 11/02/23 Levy Barry MD [address] [place] [address] [place] [address] PCP - General Family Medicine 12/20/23 documented as of this encounter
--- OUTSIDE RECORDS SUMMARY | 2025-07-28 14:40 | XMS_ITS | Encounter Summary ---
Author Organization [facility] work ([facility]) Address [address] [place] [address] Care Team Providers Care Environmental Science Instructor Name Role Phone Meme Steel MD Primary Care Provider [phone] Pcp, Pcp Primary Care Provider Unavailabl Guadalupe Bardales MD Primary Care Provider [phone] Sena Dominguez Unavailable [phone] Levy Barry MD Primary Care Provider Unavailab le Source Comments The information that you have received may contain highly confidential and/or federally protected health information. This information has been disclosed to you from records protected by [facility]. The law prohibits you from [...] contact the sender immediately.[facility] ([facility]) Encounter Details Date Type Department Care Team (Late st Contact Info) Description 01/16/2017 Historical Note [facility] Palkion System Devyn Vásquez MD [address] [place] [address] [phone] Social History Tobacco Use Types Packs/Day Years [...] CARRILLO - [facility] at [facility] [address] [facility] [address] [place] [phone] Brenda Clay MD [address] [facility] [address] [place] [address] 04/15/2026 10:00 AM EDT Office Visit LEATHA [facility] at [facility] + [facility] [address] [facility] [address] [place] [address] Sena Dominguez PA [address] [facility] [place] [address] documented as of this encounter Visit Diagnoses Not on filedocumented in this encounter Care Teams Environmental Science Instructor Relationship Specialty Start Date End Date Meme Steel MD [address] [place] [address] 105 [place] [address] PCP - General Pediatrics 06/05/18 04/25/22 No Pcp, Pcp PCP - General 06/08/22 07/19/22 Guadalupe Mcbride MD PCP - General Family Medicine 07/20/22 11/01/23 Sena Dominguez PA [address] [place] [address] [place] [address] PCP - BRADY Physician Guide Delegate 11/02/23 Levy Barry MD [address] [place] [address] [place] [address] PCP - General Family Medicine 12/20/23 documented as of this encounter
--- OUTSIDE RECORDS SUMMARY | 2025-07-28 14:40 | XMS_ITS | Encounter Summary ---
Author Organization [facility] work ([facility]) Address [address] [place] [address] Care Team Providers Care Instrument Lens Inspector Name Role Phone Meme Steel MD Primary Care Provider [phone] Pcp, Pcp Primary Care Provider Unavailabl Guadalupe Bardales MD Primary Care Provider [phone] Sena Dominguez Unavailable [phone] Levy Barry MD Primary Care Provider Unavailab le Source Comments The information that you have received may contain highly confidential and/or federally protected health information. This information has been disclosed to you from records protected by [facility]. The law prohibits you from making [...] error, please contact the sender immediately.[facility] ([facility]) Encounter Details Date Type Department Care Team (Late st Contact Info) Description 08/17/2010 Historical Note [facility] Wallarm System Devyn Vásquez MD [address] [place] [address] [phone] Social History Tobacco Use Types Packs/Day Years [...] CARRILLO - [facility] [address] [facility] [address] [place] [phone] Brenda Clay MD [address] [facility] [address] [place] [address] 04/15/2026 10:00 AM EDT Office Visit LEATHA Primary [facility] at [facility] + [facility] [address] [facility] [address] [place] [address] Sena Dominguez PA [address] [facility] [place] [address] documented as of this encounter Visit Diagnoses Not on filedocumented in this encounter Care Teams Instrument Lens Inspector Relationship Specialty Start Date End Date Meme Steel MD [address] [place] [address] 105 [place] [address] PCP - General Pediatrics 06/05/18 04/25/22 No Pcp, Pcp PCP - General 06/08/22 07/19/22 Guadalupe Mcbride MD PCP - General Family Medicine 07/20/22 11/01/23 Sena Dominguez PA [address] [place] [address] [place] [address] PCP - BRADY Physician Risk Control Representative 11/02/23 Levy Barry MD [address] [place] [address] [place] [address] PCP - General Family Medicine 12/20/23 documented as of this encounter
--- OUTSIDE RECORDS SUMMARY | 2025-07-28 14:40 | XMS_ITS | Encounter Summary ---
Author Organization [facility] work ([facility]) Address [address] [place] [address] Care Team Providers Care Linux Kernel Engineer Name Role Phone Meme Steel MD Primary Care Provider [phone] Pcp, Pcp Primary Care Provider Unavailabl Guadalupe Bardales MD Primary Care Provider [phone] Sena Dominguez Unavailable [phone] Levy Barry MD Primary Care Provider Unavailab le Source Comments The information that you have received may contain highly confidential and/or federally protected health information. This information has been disclosed to you from records protected by [facility]. The law prohibits you [...] please contact the sender immediately.[facility] ([facility]) Encounter Details Date Type Department Care Team (Late st Contact Info) Description 05/31/2005 Historical Note [facility] SpiceCSM System Devyn Vásquez MD [address] [place] [address] [phone] Social History Tobacco Use Types Packs/Day Years [...] CARRILLO - [facility] [address] [facility] [address] [place] [phone] Brenda Clay MD [address] [facility] [address] [place] [address] 04/15/2026 10:00 AM EDT Office Visit LEATHA Primary [facility] at [facility] + [facility] [address] [facility] [address] [place] [address] Sena Dominguez PA [address] [facility] [place] [address] documented as of this encounter Visit Diagnoses Not on filedocumented in this encounter Care Teams Linux Kernel Engineer Relationship Specialty Start Date End Date Meme Steel MD [address] [place] [address] 105 [place] [address] PCP - General Pediatrics 06/05/18 04/25/22 No Pcp, Pcp PCP - General 06/08/22 07/19/22 Guadalupe Mcbride MD PCP - General Family Medicine 07/20/22 11/01/23 Sena Dominguez PA [address] [place] [address] [place] [address] PCP - BRADY Physician Filleter 11/02/23 Levy Barry MD [address] [place] [address] [place] [address] PCP - General Family Medicine 12/20/23 documented as of this encounter
--- OUTSIDE RECORDS SUMMARY | 2025-07-28 14:40 | XMS_ITS | Encounter Summary ---
Author Organization [facility] work ([facility]) Address [address] [place] [address] Care Team Providers Care Court Manager Name Role Phone Meme Steel MD Primary Care Provider No Pcp, Pcp Primary Care Provider Unavailabl Guadalupe Bardales MD Primary Care Provider [phone] Sena Dominguez Unavailable [phone] Levy Barry MD Primary Care Provider Unavailab le Source Comments The information that you have received may contain highly confidential and/or federally protected health information. This information has been disclosed to you from records protected by [facility]. The law prohibits you [...] please contact the sender immediately.[facility] ([facility]) Encounter Details Date Type Department Care Team (Late st Contact Info) Description 06/30/2005 Historical Note [facility] Attention Sciences System Devyn Vásquez MD [address] [place] [address] [phone] Social History Tobacco Use Types Packs/Day Years [...] - [facility] [address] [facility] [address] [place] [phone] Brenda Clay MD [address] [facility] [address] [place] [phone] 04/15/2026 10:00 AM EDT Office Visit LEATHA Primary [facility] at [facility] + [facility] [address] [facility] [address] [place] [address] Sena Dominguez PA [address] [facility] [place] [address] documented as of this encounter Visit Diagnoses Not on filedocumented in this encounter Care Teams Court Manager Relationship Specialty Start Date End Date Meme Steel MD [address] [place] [address] 105 [place] [address] PCP - General Pediatrics 06/05/18 04/25/22 No Pcp, Pcp PCP - General 06/08/22 07/19/22 Guadalupe Mcbride MD PCP - General Family Medicine 07/20/22 11/01/23 Sena Dominguez PA [address] [place] [address] [place] [address] PCP - BRADY Physician Research Contracts Supervisor 11/02/23 Levy Barry MD [address] [place] [address] [place] [address] PCP - General Family Medicine 12/20/23 documented as of this encounter
--- OUTSIDE RECORDS SUMMARY | 2025-07-28 14:40 | XMS_ITS | Encounter Summary ---
Author Organization [facility] work ([facility]) Address [address] [place] [address] Care Team Providers Care Quilt Stuffer Name Role Phone Meme Steel MD Primary Care Provider [phone] Pcp, Pcp Primary Care Provider Unavailabl Guadalupe Bardales MD Primary Care Provider [phone] Sena Dominguez Unavailable [phone] Levy Barry MD Primary Care Provider Unavailab le Source Comments The information that you have received may contain highly confidential and/or federally protected health information. This information has been disclosed to you from records protected by [facility]. The law prohibits you [...] please contact the sender immediately.[facility] ([facility]) Encounter Details Date Type Department Care Team (Late st Contact Info) Description 10/27/2016 Historical Note [facility]G Apaja System Devyn Vásquez MD [address] [place] [address] [phone] Social History Tobacco Use Types Packs/Day Years [...] Visit LEATHA CARRILLO - [facility] [address] [facility] [address] [place] [phone] Brenda Clay MD [address] [facility] [address] [place] [phone] 04/15/2026 10:00 AM EDT Office Visit LEATHA Primary Care at [facility] + [facility] [address] [facility] [address] [place] [address] Sena Dominguez PA [address] [facility] [place] [address] documented as of this encounter Visit Diagnoses Not on filedocumented in this encounter Care Teams Quilt Stuffer Relationship Specialty Start Date End Date Meme Steel MD [address] [place] [address] 105 [place] [address] PCP - General Pediatrics 06/05/18 04/25/22 No Pcp, Pcp PCP - General 06/08/22 07/19/22 Guadalupe Mcbride MD PCP - General Family Medicine 07/20/22 11/01/23 Sena Dominguez PA [address] [place] [address] [place] [address] PCP - BRADY Physician Senior Product Marketing Manager 11/02/23 Levy Barry MD [address] [place] [address] [place] [address] PCP - General Family Medicine 12/20/23 documented as of this encounter
--- OUTSIDE RECORDS SUMMARY | 2025-07-28 14:40 | XMS_ITS | Encounter Summary ---
Author Organization [facility] work ([facility]) Address [address] [facility] [address] [place] [address] Care Team Providers Care Electromechanic Name Role Phone Meme Steel MD Primary Care Provider [phone] No Pcp, Pcp Primary Care Provider Unavailabl Guadalupe Bardales MD Primary Care Provider [phone] Sena Dominguez Unavailable Levy Barry MD Primary Care Provider Unavailab le Source Comments The information that you have received may contain highly confidential and/or federally protected health information. This information has been disclosed to you from records protected by [facility]. The law prohibits you [...] information in error, please contact the sender immediately.[facility] ([facility]) Encounter Details Date Type Department Care Team (Late st Contact Info) Description 08/17/2010 Historical Note SVMG DartPoints System Devyn Vásquez MD [address] [place] [address] [phone] Social History Tobacco Use Types Packs/Day Years [...] - [facility] [address] [facility] [address] [place] [phone] Brenda Clay MD [address] [facility] [address] [place] [address] 04/15/2026 10:00 AM EDT Office Visit LEATHA Primary [facility] at [facility] + [facility] [address] [facility] [address] [place] [address] Sena Dominguez PA [address] [facility] [place] [address] documented as of this encounter Visit Diagnoses Not on filedocumented in this encounter Care Teams Electromechanic Relationship Specialty Start Date End Date Meme Steel MD [address] [place] [address] [place] [address] PCP - General Pediatrics 06/05/18 04/25/22 No Pcp, Pcp PCP - General 06/08/22 07/19/22 Guadalupe Mcbride MD PCP - General Family Medicine 07/20/22 11/01/23 Sena Dominguez PA [address] [place] [address] [place] [address] PCP - BRADY Physician Internal Communications Manager 11/02/23 Levy Barry MD [address] [place] [address] [place] [address] PCP - General Family Medicine 12/20/23 documented as of this encounter
--- OUTSIDE RECORDS SUMMARY | 2025-07-28 14:40 | XMS_ITS | Encounter Summary ---
Author Organization [facility] work ([facility]) Address [address] [facility] [address] [place] [address] Care Team Providers Care Virtual Assistant For Advertisers Name Role Phone Meme Steel MD Primary Care Provider [phone] Pcp, Pcp Primary Care Provider Unavailabl Guadalupe Bardales MD Primary Care Provider [phone] Sena Dominguez Unavailable [phone] Levy Barry MD Primary Care Provider Unavailab le Source Comments The information that you have received may contain highly confidential and/or federally protected health information. This information has been disclosed to you from records protected by [facility]. The law prohibits you from [...] please contact the sender immediately.[facility] ([facility]) Encounter Details Date Type Department Care Team (Late st Contact Info) Description 2004 Historical Note [facility] [employer]H [employer] System Devyn Vásquez MD [address] [place] [address] [phone] Social History Tobacco Use Types Packs/Day Years [...] LEATHA CARRILLO - [facility] [address] [facility] [address] [place] [phone] Brenda Clay MD [address] [facility] [address] [place] [address] 04/15/2026 10:00 AM EDT Office Visit LE[facility]HA [facility] at [facility] + [facility] [address] [facility] [address] [place] [address] Sena Dominguez PA [address] [facility] [place] [address] documented as of this encounter Visit Diagnoses Not on filedocumented in this encounter Care Teams Virtual Assistant For Advertisers Relationship Specialty Start Date End Date Meme Steel MD [address] [place] [address] 105 [place] [address] PCP - General Pediatrics 06/05/18 04/25/22 No Pcp, Pcp PCP - General 06/08/22 07/19/22 Guadalupe Mcbride MD PCP - General Family Medicine 07/20/22 11/01/23 Sena Dominguez PA [address] [place] [address] [place] [address] PCP - BRADY Physician Laundry Aide 11/02/23 Levy Barry MD [address] [place] [address] [place] [address] PCP - General Family Medicine 12/20/23 documented as of this encounter
--- OUTSIDE RECORDS SUMMARY | 2025-07-28 14:40 | XMS_ITS | Encounter Summary ---
Author Organization [facility] work ([facility]) Address [address] [facility] [address] [place] [address] Care Team Providers Care Family Health Nurse Practitioner Name Role Phone Meme Steel MD Primary Care Provider [phone] No Pcp, Pcp Primary Care Provider Unavailabl Guadalupe Bardales MD Primary Care Provider [phone] Sena Dominguez Unavailable [phone] Levy Barry MD Primary Care Provider Unavailab le Source Comments The information that you have received may contain highly confidential and/or federally protected health information. This information has been disclosed to you from records protected by [facility]. The law prohibits you from [...] please contact the sender immediately.[facility] ([facility]) Encounter Details Date Type Department Care Team (Late st Contact Info) Description 06/02/2005 Historical Note [facility] Lotsa Helping Hands System Devyn Vásquez MD [address] [place] [address] [phone] Social History Tobacco Use Types Packs/Day Years [...] LEATHA CARRILLO - [facility] [address] [facility] [address] [place] [phone] Brenda Clay MD [address] [facility] [address] [place] [address] 04/15/2026 10:00 AM EDT Office Visit LEATHA Primary [facility] at [facility] + [facility] [address] [facility] [address] [place] [address] Sena Dominguez PA [address] [facility] [place] [address] documented as of this encounter Visit Diagnoses Not on filedocumented in this encounter Care Teams Family Health Nurse Practitioner Relationship Specialty Start Date End Date Meme Steel MD [address] [place] [address] 105 [place] [address] PCP - General Pediatrics 06/05/18 04/25/22 No Pcp, Pcp PCP - General 06/08/22 07/19/22 Guadalupe Mcbride MD PCP - General Family Medicine 07/20/22 11/01/23 Sena Dominguez PA [address] [place] [address] [place] [address] PCP - BRADY Physician Lunchroom Monitor 11/02/23 Levy Barry MD [address] [place] [address] [place] [address] PCP - General Family Medicine 12/20/23 documented as of this encounter
--- OUTSIDE RECORDS SUMMARY | 2025-07-28 14:40 | XMS_ITS | Encounter Summary ---
Author Organization [facility] work ([facility]) Address [address] [place] [address] Care Team Providers Care Account Executive Name Role Phone Meme Steel MD Primary Care Provider [phone] Pcp, Pcp Primary Care Provider Unavailabl Guadalupe Bardales MD Primary Care Provider [phone] Sena Dominguez Unavailable [phone] Levy Barry MD Primary Care Provider Unavailab le Source Comments The information that you have received may contain highly confidential and/or federally protected health information. This information has been disclosed to you from records protected by [facility]. The law prohibits [...] please contact the sender immediately.[facility] ([facility]) Encounter Details Date Type Department Care Team (Late st Contact Info) Description 02/19/2010 Historical Note [facility] AGNITiO System Devyn Vásquez MD [address] [place] [address] [phone] Social History Tobacco Use Types Packs/Day Years [...] LEATHA CARRILLO - [facility] [address] [place] [phone] Brenda Clay MD [address] [facility] [address] [place] [address] 04/15/2026 10:00 AM EDT Office Visit LEATHA Primary [facility] at [facility] + [facility] [address] [place] [address] Sena Dominguez PA [address] [place] [address] documented as of this encounter Visit Diagnoses Not on filedocumented in this encounter Care Teams Account Executive Relationship Specialty Start Date End Date Meme Steel MD [address] [place] [address] 105 [place] [address] PCP - General Pediatrics 06/05/18 04/25/22 No Pcp, Pcp PCP - General 06/08/22 07/19/22 Guadalupe Mcbride MD PCP - General Family Medicine 07/20/22 11/01/23 Sena Dominguez PA [address] [place] [address] [place] [address] PCP - BRADY Physician Blocker Metal Base 11/02/23 Levy Barry MD [address] [place] [address] [place] [address] PCP - General Family Medicine 12/20/23 documented as of this encounter
--- OUTSIDE RECORDS SUMMARY | 2025-07-28 14:40 | XMS_ITS | Encounter Summary ---
Author Organization [facility] work ([facility]) Address [address] [place] [address] Care Team Providers Care Ad Operations Associate Name Role Phone Meme Steel MD Primary Care Provider [phone] Pcp, Pcp Primary Care Provider Unavailabl Guadalupe Bardales MD Primary Care Provider [phone] Sena Dominguez Unavailable [phone] Levy Barry MD Primary Care Provider Unavailab le Source Comments The information that you have received may contain highly confidential and/or federally protected health information. This information has been disclosed to you from records protected by [facility]. The law prohibits you [...] contact the sender immediately.[facility] ([facility]) Encounter Details Date Type Department Care Team (Late st Contact Info) Description 09/01/2016 Historical Note [facility] OY LX Therapies System Devyn Vásquez MD [address] [place] [address] [phone] Social History Tobacco Use Types Packs/Day Years [...] CARRILLO - [facility] [address] [facility] [address] [address] [place] [phone] Brenda Clay MD [address] [facility] [address] [place] [address] 04/15/2026 10:00 AM EDT Office Visit LEATHA Primary Care at [facility] + [facility] [address] [place] [address] Sena Dominguez PA [address] [facility] [facility] [place] [address] documented as of this encounter Visit Diagnoses Not on filedocumented in this encounter Care Teams Ad Operations Associate Relationship Specialty Start Date End Date Meme Steel MD [address] [place] [address] 105 [place] [address] PCP - General Pediatrics 06/05/18 04/25/22 No Pcp, Pcp PCP - General 06/08/22 07/19/22 Guadalupe Mcbride MD PCP - General Family Medicine 07/20/22 11/01/23 Sena Dominguez PA [address] [place] [address] [place] [address] PCP - BRADY Physician Lead Ramp Agent 11/02/23 Levy Barry MD [address] [place] [address] [place] [address] PCP - General Family Medicine 12/20/23 documented as of this encounter
--- OUTSIDE RECORDS SUMMARY | 2025-07-28 14:40 | XMS_ITS | Encounter Summary ---
Author Organization [facility] work ([facility]) Address [address] [place] [address] Care Team Providers Care Supervisor Hot [employer] Mill Name Role Phone Meme Steel MD Primary Care Provider [phone] Pcp, Pcp Primary Care Provider Unavailabl Guadalupe Bardales MD Primary Care Provider [phone] Sena Dominguez Unavailable [phone] Levy Barry MD Primary Care Provider Unavailab le Source Comments The information that you have received may contain highly confidential and/or federally protected health information. This information has been disclosed to you from records protected by [facility]. The law prohibits you from [...] in error, please contact the sender immediately.[facility] ([facility]) Encounter Details Date Type Department Care Team (Late st Contact Info) Description 01/16/2017 Historical Note SVM[facility] [employer] System Devyn Vásquez MD [address] [place] [address] [phone] Social History Tobacco Use Types Packs/Day Years [...] CARRILLO - [facility] [address] [facility] [address] [place] [phone] Brenda Clay MD [address] [facility] [address] [place] [address] 04/15/2026 10:00 AM EDT Office Visit LEATHA Primary [facility] at [facility] + [facility] [address] [place] [address] Sena Dominguez PA [address] [facility] [place] [address] documented as of this encounter Visit Diagnoses Not on filedocumented in this encounter Care Teams Supervisor Hot [employer] Mill Relationship Specialty Start Date End Date Meme Steel MD [address] [place] [address] 105 [place] [address] PCP - General Pediatrics 06/05/18 04/25/22 No Pcp, Pcp PCP - General 06/08/22 07/19/22 Guadalupe Mcbride MD PCP - General Family Medicine 07/20/22 11/01/23 Sena Dominguez PA [address] [place] [address] [place] [address] PCP - BRADY Physician Mobile Architect 11/02/23 Levy Barry MD [address] [place] [address] [place] [address] PCP - General Family Medicine 12/20/23 documented as of this encounter
--- OUTSIDE RECORDS SUMMARY | 2025-07-28 14:40 | XMS_ITS | Encounter Summary ---
Author Organization [facility] work ([facility]) Address [address] [place] [address] Care Team Providers Care Director Child Name Role Phone Meme Steel MD Primary Care Provider [phone] Pcp, Pcp Primary Care Provider Unavailabl Guadalupe Bardales MD Primary Care Provider [phone] Sena Dominguez Unavailable Levy Barry MD Primary Care Provider Unavailab le Source Comments The information that you have received may contain highly confidential and/or federally protected health information. This information has been disclosed to you from records protected by [facility]. The law prohibits you [...] contact the sender immediately.[facility] ([facility]) Encounter Details Date Type Department Care Team (Late st Contact Info) Description 09/01/2016 Historical Note [facility] RF Biocidics System Devyn Vásquez MD [address] [place] [address] [phone] Social History Tobacco Use Types Packs/Day Years [...] CARRILLO - [facility] [address] [facility] [address] [place] [phone] Brenda Clay MD [address] [facility] [address] [place] [address] 04/15/2026 10:00 AM EDT Office Visit LEATHA Primary Care at [facility] + [facility] [address] [place] [address] Sena Dominguez PA [address] [facility] [place] [address] documented as of this encounter Visit Diagnoses Not on filedocumented in this encounter Care Teams Director Child Relationship Specialty Start Date End Date Meme Steel MD [address] [place] [address] 105 [place] [address] PCP - General Pediatrics 06/05/18 04/25/22 No Pcp, Pcp PCP - General 06/08/22 07/19/22 Guadalupe Mcbride MD PCP - General Family Medicine 07/20/22 11/01/23 Sena Dominguez PA [address] [place] [address] [place] [address] PCP - BRADY Physician Fruit Room Hand 11/02/23 Levy Barry MD [address] [place] [address] [place] [address] PCP - General Family Medicine 12/20/23 documented as of this encounter
--- OUTSIDE RECORDS SUMMARY | 2025-07-28 14:40 | XMS_ITS | Encounter Summary ---
Author Organization [facility] work ([facility]) Address [address] [place] [address] Care Team Providers Care Child Care Coordinator Name Role Phone Meme Steel MD Primary Care Provider No Pcp, Pcp Primary Care Provider Unavailabl Guadalupe Bardales MD Primary Care Provider [phone] Sena Dominguez Unavailable [phone] Levy Barry MD Primary Care Provider Unavailab le Source Comments The information that you have received may contain highly confidential and/or federally protected health information. This information has been disclosed to you from records protected by [facility]. The law prohibits you from [...] the sender immediately.[facility] ([facility]) Encounter Details Date Type Department Care Team (Late st Contact Info) Description 06/24/2005 Historical Note [facility] MeetMeTix System Devyn Vásquez MD [address] [place] [address] [phone] Social History Tobacco Use Types Packs/Day Years [...] CARRILLO - [facility] [address] [facility] [address] [place] [phone] Brenda Clay MD [address] [facility] [address] [place] [address] 04/15/2026 10:00 AM EDT Office Visit LEATHA Primary Care at [facility] + [facility] [address] [facility] [address] [place] [address] Sena Dominguez PA [address] [facility] [place] [address] documented as of this encounter Visit Diagnoses Not on filedocumented in this encounter Care Teams Child Care Coordinator Relationship Specialty Start Date End Date Meme Steel MD [address] [place] [address] 105 [place] [address] PCP - General Pediatrics 06/05/18 04/25/22 No Pcp, Pcp PCP - General 06/08/22 07/19/22 Guadalupe Mcbride MD PCP - General Family Medicine 07/20/22 11/01/23 Sena Dominguez PA [address] [place] [address] [place] [address] PCP - BRADY Physician Airplane Cleaner 11/02/23 Levy Barry MD [address] [place] [address] [place] [address] PCP - General Family Medicine 12/20/23 documented as of this encounter
--- OUTSIDE RECORDS SUMMARY | 2025-07-28 14:40 | XMS_ITS | Encounter Summary ---
Author Organization [facility] work ([facility]) Address [address] [place] [address] Care Team Providers Care Boilermaker Welder Name Role Phone Meme Steel MD Primary Care Provider [phone] No Pcp, Pcp Primary Care Provider Unavailabl Guadalupe Bardales MD Primary Care Provider [phone] Sena Dominguez Unavailable [phone] Levy Barry MD Primary Care Provider Unavailab le Source Comments The information that you have received may contain highly confidential and/or federally protected health information. This information has been disclosed to you from records protected by [facility]. The law prohibits [...] Contact Info) Description 08/07/2009 Historical Note [facility]G [employer] System Devyn Vásquez MD [address] [place] [address] [phone] Social History Tobacco Use Types Packs/Day Years [...] LEATHA CARRILLO - [facility] [address] [facility] [address] [place] [phone] Brenda Clay MD [address] [facility] [address] [place] [phone] 04/15/2026 10:00 AM EDT Office Visit LEATHA Primary Care at [facility] + [facility] [address] [facility] [address] [place] [address] Sena Dominguez PA [address] [facility] [place] [address] documented as of this encounter Visit Diagnoses Not on filedocumented in this encounter Care Teams Boilermaker Welder Relationship Specialty Start Date End Date Meme Steel MD [address] [place] [address] 105 [place] [address] PCP - General Pediatrics 06/05/18 04/25/22 No Pcp, Pcp PCP - General 06/08/22 07/19/22 Guadalupe Mcbride MD PCP - General Family Medicine 07/20/22 11/01/23 Sena Dominguez PA [address] [place] [address] [place] [address] PCP - BRADY Physician Principal Software Engineer 11/02/23 Levy Barry MD [address] [place] [address] [place] [address] PCP - General Family Medicine 12/20/23 documented as of this encounter
--- OUTSIDE RECORDS SUMMARY | 2025-07-28 14:40 | XMS_ITS | Encounter Summary ---
Author Organization [facility] work ([facility]) Address [address] [place] [address] Care Team Providers Care Channel Partners Name Role Phone Meme Steel MD Primary Care Provider [phone] No Pcp, Pcp Primary Care Provider Unavailabl Guadalupe Bardales MD Primary Care Provider [phone] Sena Dominguez Unavailable [phone] Levy Barry MD Primary Care Provider Unavailab le Source Comments The information that you have received may contain highly confidential and/or federally protected health information. This information has been disclosed to you from records protected by [facility]. The law prohibits you from making [...] sender immediately.[facility] ([facility]) Encounter Details Date Type Department Care Team (Late st Contact Info) Description 06/30/2005 Historical Note SVMG [employer] System Devyn Vásquez MD [address] [place] [address] [phone] Social History Tobacco Use Types Packs/Day Years [...] - [facility] [address] [facility] [address] [place] [phone] Brenda Clay MD [address] [facility] [address] [place] [address] 04/15/2026 10:00 AM EDT Office Visit LE[facility]HA [facility] at [facility] [address] [facility] [address] [place] [address] Sena Dominguez PA [address] [facility] [place] [address] documented as of this encounter Visit Diagnoses Not on filedocumented in this encounter Care Teams Channel Partners Relationship Specialty Start Date End Date Meme Steel MD [address] [place] [address] 105 [place] [address] PCP - General Pediatrics 06/05/18 04/25/22 No Pcp, Pcp PCP - General 06/08/22 07/19/22 Guadalupe Mcbride MD PCP - General Family Medicine 07/20/22 11/01/23 Sena Dominguez PA [address] [place] [address] [place] [address] PCP - BRADY Physician Immigration Attorney 11/02/23 Levy Barry MD [address] [place] [address] [place] [address] PCP - General Family Medicine 12/20/23 documented as of this encounter
--- OUTSIDE RECORDS SUMMARY | 2025-07-28 14:40 | XMS_ITS | Encounter Summary ---
Author Organization [facility] work ([facility]) Address [address] [place] [address] Care Team Providers Care Principal Architectural Firm Name Role Phone Meme Steel MD Primary Care Provider [phone] No Pcp, Pcp Primary Care Provider Unavailabl Guadalupe Bardales MD Primary Care Provider [phone] Sena Dominguez Unavailable [phone] Levy Barry MD Primary Care Provider Unavailab le Source Comments The information that you have received may contain highly confidential and/or federally protected health information. This information has been disclosed to you from records protected by [facility]. The law prohibits [...] please contact the sender immediately.[facility] ([facility]) Encounter Details Date Type Department Care Team (Late st Contact Info) Description 09/01/2009 Historical Note [facility] EZ-Apps System Devyn Vásquez MD [address] [place] [address] [phone] Social History Tobacco Use Types Packs/Day Years [...] [facility] [address] [facility] [address] [place] [phone] Brenda Clay MD [address] [facility] [address] [place] [address] 04/15/2026 10:00 AM EDT Office Visit LEATHA Primary [facility] at [facility] [address] [facility] [address] [place] [address] Sena Dominguez PA [address] [facility] [place] [address] documented as of this encounter Visit Diagnoses Not on filedocumented in this encounter Care Teams Principal Architectural Firm Relationship Specialty Start Date End Date Meme Steel MD [address] [place] [address] 105 [place] [address] PCP - General Pediatrics 06/05/18 04/25/22 No Pcp, Pcp PCP - General 06/08/22 07/19/22 Guadalupe Mcbride MD PCP - General Family Medicine 07/20/22 11/01/23 Sena Dominguez PA [address] [place] [address] [place] [address] PCP - BRADY Physician Osteopathic Medicine Teacher 11/02/23 Levy Barry MD [address] [place] [address] [place] [address] PCP - General Family Medicine 12/20/23 documented as of this encounter
--- OUTSIDE RECORDS SUMMARY | 2025-07-28 14:40 | XMS_ITS | Encounter Summary ---
Author Organization [facility] work ([facility]) Address [address] [place] [address] Care Team Providers Care Side Panel Padder Name Role Phone Meme Steel MD Primary Care Provider [phone] No Pcp, Pcp Primary Care Provider Unavailabl Guadalupe Bardales MD Primary Care Provider [phone] Sena Dominguez Unavailable [phone] Levy Barry MD Primary Care Provider Unavailab le Source Comments The information that you have received may contain highly confidential and/or federally protected health information. This information has been disclosed to you from records protected by [facility]. The law prohibits you from [...] please contact the sender immediately.[facility] ([facility]) Encounter Details Date Type Department Care Team (Late st Contact Info) Description 01/26/2005 Historical Note SVMG Conex Med System Devyn Vásquez MD [address] [place] [address] [phone] Social History Tobacco Use Types Packs/Day Years [...] LEATHA CARRILLO - [facility] [address] [facility] [address] [place] [phone] Brenda Clay MD [address] [facility] [address] [place] [address] 04/15/2026 10:00 AM EDT Office Visit LEATHA Primary Care at [facility] + [facility] [address] [facility] [address] [place] [address] Sena Dominguez PA [address] [facility] [place] [address] documented as of this encounter Visit Diagnoses Not on filedocumented in this encounter Care Teams Side Panel Padder Relationship Specialty Start Date End Date Meme Steel MD [address] [place] [address] 105 [place] [address] PCP - General Pediatrics 06/05/18 04/25/22 No Pcp, Pcp PCP - General 06/08/22 07/19/22 Guadalupe Mcbride MD PCP - General Family Medicine 07/20/22 11/01/23 Sena Dominguez PA [address] [place] [address] [place] [address] PCP - BRADY Physician School Boat Driver 11/02/23 Levy Barry MD [address] [place] [address] [place] [address] PCP - General Family Medicine 12/20/23 documented as of this encounter
--- OUTSIDE RECORDS SUMMARY | 2025-07-28 14:40 | XMS_ITS | Encounter Summary ---
Author Organization [facility] work ([facility]) Address [address] [place] [address] Care Team Providers Care Clerk Telegraph Service Name Role Phone Meme Steel MD Primary Care Provider [phone] No Pcp, Pcp Primary Care Provider Unavailabl Guadalupe Bardales MD Primary Care Provider [phone] Sena Dominguez Unavailable [phone] Levy Barry MD Primary Care Provider Unavailab le Source Comments The information that you have received may contain highly confidential and/or federally protected health information. This information has been disclosed to you from records protected by [facility]. The law prohibits you from [...] please contact the sender immediately.[facility] ([facility]) Encounter Details Date Type Department Care Team (Late st Contact Info) Description 07/13/2016 Historical Note [facility] Vidit System Devyn Vásquez MD [address] [place] [address] [phone] Social History Tobacco Use Types Packs/Day Years [...] LEATHA CARRILLO - [facility] [address] [facility] [address] [place] [phone] Brenda Clay MD [address] [facility] [address] [place] [address] 04/15/2026 10:00 AM EDT Office Visit LEATHA Primary [facility] at [facility] + [facility] [address] [facility] [address] [place] [address] Sena Dominguez PA [address] [facility] [place] [address] documented as of this encounter Visit Diagnoses Not on filedocumented in this encounter Care Teams Clerk Telegraph Service Relationship Specialty Start Date End Date Meme Steel MD [address] [place] [address] 105 [place] [address] PCP - General Pediatrics 06/05/18 04/25/22 No Pcp, Pcp PCP - General 06/08/22 07/19/22 Guadalupe Mcbride MD PCP - General Family Medicine 07/20/22 11/01/23 Sena Dominguez PA [address] [place] [address] [place] [address] PCP - BRADY Physician Ward Nurse 11/02/23 Levy Barry MD [address] [place] [address] [place] [address] PCP - General Family Medicine 12/20/23 documented as of this encounter
--- OUTSIDE RECORDS SUMMARY | 2025-07-28 14:40 | XMS_ITS | Encounter Summary ---
Author Organization [facility] work ([facility]) Address [address] [place] [address] Care Team Providers Care Material Expeditor Name Role Phone Meme Steel MD Primary Care Provider [phone] Pcp, Pcp Primary Care Provider Unavailabl Guadalupe Bardales MD Primary Care Provider [phone] Sena Dominguez Unavailable [phone] Levy Barry MD Primary Care Provider Unavailab le Source Comments The information that you have received may contain highly confidential and/or federally protected health information. This information has been disclosed to you from records protected by [facility]. The law prohibits you from making [...] contact the sender immediately.[facility] ([facility]) Encounter Details Date Type Department Care Team (Late st Contact Info) Description 05/12/2005 Historical Note [facility] Green Chips System Devyn Vásquez MD [address] [place] [address] [phone] Social History Tobacco Use Types Packs/Day Years [...] [facility] [address] [place] [phone] Brenda Clay MD [address] [facility] [address] [place] [address] 04/15/2026 10:00 AM EDT Office Visit [facility] + [facility] [address] [place] [address] Sena oDminguez PA [address] [facility] [place] [address] documented as of this encounter Visit Diagnoses Not on filedocumented in this encounter Care Teams Material Expeditor Relationship Specialty Start Date End Date Meme Steel MD [address] [place] [address] [place] [address] PCP - General Pediatrics 06/05/18 04/25/22 No Pcp, Pcp PCP - General 06/08/22 07/19/22 Guadalupe Mcbride MD PCP - General Family Medicine 07/20/22 11/01/23 Sena Dominguez PA [address] [place] [address] [place] [address] PCP - BRADY Physician Mangle Roll Operator 11/02/23 Levy Barry MD [address] [place] [address] [place] [address] PCP - General Family Medicine 12/20/23 documented as of this encounter
--- OUTSIDE RECORDS SUMMARY | 2025-07-28 14:40 | XMS_ITS | Encounter Summary ---
Author Organization [facility] work ([facility]) Address [address] [place] [address] Care Team Providers Care Recreation Attendant Name Role Phone Meme Steel MD Primary Care Provider [phone] Pcp, Pcp Primary Care Provider Unavailabl Guadalupe Bardales MD Primary Care Provider [phone] Sena Dominguez Unavailable [phone] Levy Barry MD Primary Care Provider Unavailab le Source Comments The information that you have received may contain highly confidential and/or federally protected health information. This information has been disclosed to you from records protected by [facility]. The law prohibits you from [...] contact the sender immediately.[facility] ([facility]) Encounter Details Date Type Department Care Team (Late st Contact Info) Description 03/09/2016 Historical Note [facility] Oculo Therapy System Devyn Vásquez MD [address] [place] [address] [phone] Social History Tobacco Use Types Packs/Day Years [...] CARRILLO - [facility] [place] [facility] [address] [facility] [address] [place] [phone] Brenda Clay MD [address] [facility] [place] [address] [place] [address] 04/15/2026 10:00 AM EDT Office Visit [facility] [address] [place] [address] Sena Dominguez PA [address] [facility] [place] [address] documented as of this encounter Visit Diagnoses Not on filedocumented in this encounter Care Teams Recreation Attendant Relationship Specialty Start Date End Date Meme Steel MD [address] [place] [address] 105 [place] [address] PCP - General Pediatrics 06/05/18 04/25/22 No Pcp, Pcp PCP - General 06/08/22 07/19/22 Guadalupe Mcbride MD PCP - General Family Medicine 07/20/22 11/01/23 Sena Dominguez PA [address] [place] [address] [place] [address] PCP - BRADY Physician Forest Fire Lookout 11/02/23 Levy Barry MD [address] [place] [address] [place] [address] PCP - General Family Medicine 12/20/23 documented as of this encounter
--- OUTSIDE RECORDS SUMMARY | 2025-07-28 14:40 | XMS_ITS | Encounter Summary ---
Author Organization [facility] work ([facility]) Address [address] [place] [address] Care Team Providers Care Food Cart Attendant Name Role Phone Meme Steel MD Primary Care Provider No Pcp, Pcp Primary Care Provider Unavailabl Guadalupe Bardales MD Primary Care Provider [phone] Sena Dominguez Unavailable [phone] Levy Barry MD Primary Care Provider Unavailab le Source Comments The information that you have received may contain highly confidential and/or federally protected health information. This information has been disclosed to you from records protected by [email or web address]. The law prohibits you [...] contact the sender immediately.[facility] ([facility]) Encounter Details Date Type Department Care Team (Late st Contact Info) Description 06/24/2005 Historical Note [facility] Kuznech System Devyn Vásquez MD [address] [place] [address] [phone] Social History Tobacco Use Types Packs/Day Years [...] AM EST Office Visit LEATHA CARRILLO - [facility] [address] [facility] [address] [place] [phone] Brenda lCay MD [address] [facility] [address] [place] [address] 04/15/2026 10:00 AM EDT Office Visit [facility] at [facility] + [facility] [address] [place] [address] Sena Dominguez PA [address] [facility] [place] [address] documented as of this encounter Visit Diagnoses Not on filedocumented in this encounter Care Teams Food Cart Attendant Relationship Specialty Start Date End Date Meme Steel MD [address] [place] [address] 105 [place] [address] PCP - General Pediatrics 06/05/18 04/25/22 No Pcp, Pcp PCP - General 06/08/22 07/19/22 Guadalupe Mcbride MD PCP - General Family Medicine 07/20/22 11/01/23 Sena Dominguez PA [address] [place] [address] [place] [address] PCP - BRADY Physician Communications Analyst 11/02/23 Levy Barry MD [address] [place] [address] [place] [address] PCP - General Family Medicine 12/20/23 documented as of this encounter
--- OUTSIDE RECORDS SUMMARY | 2025-07-28 14:40 | XMS_ITS | Encounter Summary ---
Author Organization [facility] work ([facility]) Address [address] [place] [address] Care Team Providers Care Director Of Customer Acquisition Name Role Phone Meme Steel MD Primary Care Provider [phone] Pcp, Pcp Primary Care Provider Unavailabl Guadalupe Bardales MD Primary Care Provider [phone] Sena Dominguez Unavailable [phone] Levy Barry MD Primary Care Provider Unavailab le Source Comments The information that you have received may contain highly confidential and/or federally protected health information. This information has been disclosed to you from records protected by [facility]. The law prohibits you from making [...] please contact the sender immediately.[facility] ([facility]) Encounter Details Date Type Department Care Team (Late st Contact Info) Description 06/30/2005 Historical Note [facility] Devyn Vásquez MD [address] [place] [address] [phone] Social History Tobacco Use Types Packs/Day Years [...] CARRILLO - [facility] [address] [facility] [address] [place] [phone] Brenda Clay MD [address] [facility] [address] [place] [address] 04/15/2026 10:00 AM EDT Office Visit [facility] at [facility] + [facility] [address] [facility] [address] [place] [address] Sena Dominguez PA [address] [facility] [place] [address] documented as of this encounter Visit Diagnoses Not on filedocumented in this encounter Care Teams Director Of Customer Acquisition Relationship Specialty Start Date End Date Meme Steel MD [address] [place] [address] 105 [place] [address] PCP - General Pediatrics 06/05/18 04/25/22 No Pcp, Pcp PCP - General 06/08/22 07/19/22 Guadalupe Mcbride MD PCP - General Family Medicine 07/20/22 11/01/23 Sena Dominguez PA [address] [place] [address] [place] [address] PCP - BRADY Physician Clinical Appeals Specialist 11/02/23 Levy Barry MD [address] [place] [address] [place] [address] PCP - General Family Medicine 12/20/23 documented as of this encounter
--- OUTSIDE RECORDS SUMMARY | 2025-07-28 14:40 | XMS_ITS | Encounter Summary ---
Author Organization [facility] work ([facility]) Address [address] [place] [address] Care Team Providers Care Classroom Teacher Name Role Phone Meme Steel MD Primary Care Provider [phone] Pcp, Pcp Primary Care Provider Unavailabl Guadalupe Bardales MD Primary Care Provider [phone] Sena Dominguez Unavailable [phone] Levy Barry MD Primary Care Provider Unavailab le Source Comments The information that you have received may contain highly confidential and/or federally protected health information. This information has been disclosed to you from records protected by [facility]. The law prohibits you from making [...] contact the sender immediately.[facility] ([facility]) Encounter Details Date Type Department Care Team (Late st Contact Info) Description 08/30/2005 Historical Note [facility] HaulerDeals System Devyn Vásquez MD [address] [place] [address] [phone] Social History Tobacco Use Types Packs/Day Years [...] [facility] [address] [facility] [address] [place] [phone] Brenda Clay MD [address] [facility] [address] [place] [phone] 04/15/2026 10:00 AM EDT Office Visit [facility] [address] [facility] [address] [place] [address] Sena Dominguez PA [address] [facility] [place] [address] documented as of this encounter Visit Diagnoses Not on filedocumented in this encounter Care Teams Classroom Teacher Relationship Specialty Start Date End Date Meme Steel MD [address] [place] [address] 105 [place] [address] PCP - General Pediatrics 06/05/18 04/25/22 No Pcp, Pcp PCP - General 06/08/22 07/19/22 Guadalupe Mcbride MD PCP - General Family Medicine 07/20/22 11/01/23 Sena Dominguez PA [address] [place] [address] [place] [address] PCP - BRADY Physician Arc Welder 11/02/23 Levy Barry MD [address] [place] [address] [place] [address] PCP - General Family Medicine 12/20/23 documented as of this encounter
--- OUTSIDE RECORDS SUMMARY | 2025-07-28 14:40 | XMS_ITS | Encounter Summary ---
Author Organization [facility] work ([facility]) Address [address] [place] [address] Care Team Providers Care Centrifugal Operator Name Role Phone Meme Steel MD Primary Care Provider [phone] Pcp, Pcp Primary Care Provider Unavailabl Guadalupe Bardales MD Primary Care Provider [phone] Sena Dominguez Unavailable [phone] Levy Barry MD Primary Care Provider Unavailab le Source Comments The information that you have received may contain highly confidential and/or federally protected health information. This information has been disclosed to you from records protected by [facility]. The law prohibits you [...] please contact the sender immediately.[facility] ([facility]) Encounter Details Date Type Department Care Team (Late st Contact Info) Description 06/30/2005 Historical Note [facility] Zoombu System Devyn Vásquez MD [address] [place] [address] [phone] Social History Tobacco Use Types Packs/Day Years [...] Visit LEATHA CARRILLO - [facility] [address] [facility] [address] [place] [phone] Brenda Clay MD [address] [facility] [address] [place] [address] 04/15/2026 10:00 AM EDT Office Visit [facility] + [facility] [address] [facility] [address] [place] [address] Sena Dominguez PA [address] [facility] [place] [address] documented as of this encounter Visit Diagnoses Not on filedocumented in this encounter Care Teams Centrifugal Operator Relationship Specialty Start Date End Date Meme Steel MD [address] [place] [address] 105 [place] [address] PCP - General Pediatrics 06/05/18 04/25/22 No Pcp, Pcp PCP - General 06/08/22 07/19/22 Guadalupe Mcbride MD PCP - General Family Medicine 07/20/22 11/01/23 Sena Dominguez PA [address] [place] [address] [place] [address] PCP - BRADY Physician Mica Washer Gluer 11/02/23 Levy Barry MD [address] [place] [address] [place] [address] PCP - General Family Medicine 12/20/23 documented as of this encounter
--- OUTSIDE RECORDS SUMMARY | 2025-07-28 14:40 | XMS_ITS | Encounter Summary ---
Author Organization [facility] work ([facility]) Address [address] [place] [address] Care Team Providers Care Vascular Technologist Sonographer Name Role Phone Meme Steel MD Primary Care Provider [phone] No Pcp, Pcp Primary Care Provider Unavailabl Guadalupe Bardales MD Primary Care Provider [phone] Sena Dominguez Unavailable [phone] Levy Barry MD Primary Care Provider Unavailab le Source Comments The information that you have received may contain highly confidential and/or federally protected health information. This information has been disclosed to you from records protected by [facility]. The law prohibits you [...] in error, please contact the sender immediately.[facility] ([facility]) Encounter Details Date Type Department Care Team (Late st Contact Info) Description 02/06/2010 Historical Note [facility] Rapid Pathogen Screening System Devyn Vásquez MD [address] [place] [address] [phone] Social History Tobacco Use Types Packs/Day Years [...] - [facility] [address] [facility] [address] [place] [phone] Brenda Clay MD [address] [facility] [address] [place] [address] 04/15/2026 10:00 AM EDT Office Visit LE[facility]HA [facility] at [facility] + [facility] [address] [facility] [address] [place] [address] Sena Dominguez PA [address] [facility] [place] [address] documented as of this encounter Visit Diagnoses Not on filedocumented in this encounter Care Teams Vascular Technologist Sonographer Relationship Specialty Start Date End Date Meme Steel MD [address] [place] [address] 105 [place] [address] PCP - General Pediatrics 06/05/18 04/25/22 No Pcp, Pcp PCP - General 06/08/22 07/19/22 Guadalupe Mcbride MD PCP - General Family Medicine 07/20/22 11/01/23 Sena Dominguez PA [address] [place] [address] [place] [address] PCP - BRADY Physician It Support Engineer 11/02/23 Levy Barry MD [address] [place] [address] [place] [address] PCP - General Family Medicine 12/20/23 documented as of this encounter
--- OUTSIDE RECORDS SUMMARY | 2025-07-28 14:40 | XMS_ITS | Encounter Summary ---
Author Organization [facility] work ([facility]) Address [address] [place] [address] Care Team Providers Care Lead Mechanic Name Role Phone Meme Steel MD Primary Care Provider [phone] No Pcp, Pcp Primary Care Provider Unavailabl Guadalupe Bardales MD Primary Care Provider [phone] Sena Dominguez Unavailable [phone] Levy Barry MD Primary Care Provider Unavailab le Source Comments The information that you have received may contain highly confidential and/or federally protected health information. This information has been disclosed to you from records protected by [facility]. The law prohibits you from making [...] the sender immediately.[facility] ([facility]) Encounter Details Date Type Department Care Team (Late st Contact Info) Description 08/07/2009 Historical Note [facility] [email or web address] System Devyn Vásquez MD [address] [place] [address] [phone] Social History Tobacco Use Types Packs/Day Years [...] [facility] [address] [facility] [address] [place] [phone] Brenda Clay MD [address] [facility] [address] [place] [address] 04/15/2026 10:00 AM EDT Office Visit [facility]HA [facility] at [facility] [address] [facility] [address] [place] [address] Sena Dominguez PA [address] [facility] [place] [address] documented as of this encounter Visit Diagnoses Not on filedocumented in this encounter Care Teams Lead Mechanic Relationship Specialty Start Date End Date Meme Steel MD [address] [place] [address] 105 [place] [address] PCP - General Pediatrics 06/05/18 04/25/22 No Pcp, Pcp PCP - General 06/08/22 07/19/22 Guadalupe Mcbride MD PCP - General Family Medicine 07/20/22 11/01/23 Sena Dominguez PA [address] [place] [address] [place] [address] PCP - BRADY Physician Wave Solder Offbearer 11/02/23 Levy Barry MD [address] [place] [address] [place] [address] PCP - General Family Medicine 12/20/23 documented as of this encounter
--- OUTSIDE RECORDS SUMMARY | 2025-07-28 14:40 | XMS_ITS | Encounter Summary ---
Author Organization [facility] work ([facility]) Address [address] [place] [address] Care Team Providers Care Network Security Consultant Name Role Phone Meme Steel MD Primary Care Provider [phone] No Pcp, Pcp Primary Care Provider Unavailabl Guadalupe Bardales MD Primary Care Provider [phone] Sena Dominguez Unavailable [phone] Levy Barry MD Primary Care Provider Unavailab le Source Comments The information that you have received may contain highly confidential and/or federally protected health information. This information has been disclosed to you from records protected by [facility]. The law prohibits you [...] information in error, please contact the sender immediately.[facility] ([facility]) Encounter Details Date Type Department Care Team (Late st Contact Info) Description 10/27/2016 Historical Note [facility] [employer] System Devyn Vásquez MD [address] [place] [address] [phone] Social History Tobacco Use Types Packs/Day Years [...] LEATHA CARRILLO - [facility] [address] [facility] [address] [place] [phone] Brenda Clay MD [address] [facility] [address] [place] [phone] 04/15/2026 10:00 AM EDT Office Visit LEATHA [facility] at [facility] + [facility] [address] [facility] [address] [place] [address] Sena Dominguez PA [address] [facility] [place] [address] documented as of this encounter Visit Diagnoses Not on filedocumented in this encounter Care Teams Network Security Consultant Relationship Specialty Start Date End Date Meme Steel MD [address] [place] [address] 105 [place] [address] PCP - General Pediatrics 06/05/18 04/25/22 No Pcp, Pcp PCP - General 06/08/22 07/19/22 Guadalupe Mcbride MD PCP - General Family Medicine 07/20/22 11/01/23 eSna Dominguez PA [address] [place] [address] [place] [address] PCP - BRADY Physician Supervisor Shearing 11/02/23 Levy Barry MD [address] [place] [address] [place] [address] PCP - General Family Medicine 12/20/23 documented as of this encounter
--- OUTSIDE RECORDS SUMMARY | 2025-07-28 14:40 | XMS_ITS | Encounter Summary ---
Author Organization [facility] work ([facility]) Address [address] [place] [address] Care Team Providers Care Human Resource Assistant Name Role Phone Meme Steel MD Primary Care Provider [phone] No Pcp, Pcp Primary Care Provider Unavailabl Guadalupe Bardales MD Primary Care Provider [phone] Sena Dominguez Unavailable [phone] Levy Barry MD Primary Care Provider Unavailab le Source Comments The information that you have received may contain highly confidential and/or federally protected health information. This information has been disclosed to you from records protected by [facility]. The law prohibits you [...] error, please contact the sender immediately.[facility] ([facility]) Encounter Details Date Type Department Care Team (Late st Contact Info) Description 10/23/2009 Historical Note [facility] Circassia System Devyn Vásquez MD [address] [place] [address] [phone] Social History Tobacco Use Types Packs/Day Years [...] CARRILLO - [facility] [address] [facility] [address] [place] [phone] Brenda Clay MD [address] [facility] [address] [place] [address] 04/15/2026 10:00 AM EDT Office Visit [facility]HA [facility] at [facility] + [facility] [address] [facility] [address] [place] [address] Sena Dominguez PA [address] [facility] [place] [address] documented as of this encounter Visit Diagnoses Not on filedocumented in this encounter Care Teams Human Resource Assistant Relationship Specialty Start Date End Date Meme Steel MD [address] [place] [address] [place] [address] PCP - General Pediatrics 06/05/18 04/25/22 No Pcp, Pcp PCP - General 06/08/22 07/19/22 Guadalupe Mcbride MD PCP - General Family Medicine 07/20/22 11/01/23 Sena Dominguez PA [address] [place] [address] [place] [address] PCP - BRADY Physician Thermal Spray Operator 11/02/23 Levy Barry MD [address] [place] [address] [place] [address] PCP - General Family Medicine 12/20/23 documented as of this encounter
--- OUTSIDE RECORDS SUMMARY | 2025-07-28 14:41 | XMS_ITS | Encounter Summary ---
Author Organization [facility] work ([facility]) Address [address] [place] [address] Care Team Providers Care Assembler Wire Mesh Gate Name Role Phone Meme Steel MD Primary Care Provider [phone] No Pcp, Pcp Primary Care Provider Unavailabl Guadalupe Bardales MD Primary Care Provider [phone] Sena Dominguez Unavailable [phone] Levy Barry MD Primary Care Provider Unavailab le Source Comments The information that you have received may contain highly confidential and/or federally protected health information. This information has been disclosed to you from records protected by [facility]. The law prohibits you from [...] please contact the sender immediately.[facility] ([facility]) Encounter Details Date Type Department Care Team (Late st Contact Info) Description 12/31/2015 Historical Note [facility] [employer] System Devyn Vásquez MD [address] [place] [address] [phone] Social History Tobacco Use Types Packs/Day Years [...] LEATHA CARRILLO - [facility] [address] [facility] [address] [place] [phone] Brenda Clay MD [address] [facility] [address] [place] [phone] 04/15/2026 10:00 AM EDT Office Visit LEATHA [facility] at [facility] + [facility] [address] [facility] [address] [place] [address] Sena Dominguez PA [address] [facility] [place] [address] documented as of this encounter Visit Diagnoses Not on filedocumented in this encounter Care Teams Assembler Wire Mesh Gate Relationship Specialty Start Date End Date Meme Steel MD [address] [place] [address] 105 [place] [address] PCP - General Pediatrics 06/05/18 04/25/22 No Pcp, Pcp PCP - General 06/08/22 07/19/22 Guadalupe Mcbride MD PCP - General Family Medicine 07/20/22 11/01/23 Sena Dominguez PA [address] [place] [address] [place] [address] PCP - BRADY Physician Administrative Services Manager 11/02/23 Levy Barry MD [address] [place] [address] [place] [address] PCP - General Family Medicine 12/20/23 documented as of this encounter
--- OUTSIDE RECORDS SUMMARY | 2025-07-28 14:41 | XMS_ITS | Encounter Summary ---
Author Organization [facility] work ([facility]) Address [address] [place] [address] Care Team Providers Care Magazine Worker Name Role Phone Meme Steel MD Primary Care Provider [phone] Pcp, Pcp Primary Care Provider Unavailabl Guadalupe Bardales MD Primary Care Provider [phone] Sena Dominguez Unavailable [phone] Levy Barry MD Primary Care Provider Unavailab le Source Comments The information that you have received may contain highly confidential and/or federally protected health information. This information has been disclosed to you from records protected by [facility]. The law prohibits you [...] contact the sender immediately.[facility] ([facility]) Encounter Details Date Type Department Care Team (Late st Contact Info) Description 10/01/2008 Historical Note [facility] [employer] [facility] Devyn Vásquez MD [address] [place] [address] [phone] Social History Tobacco Use Types Packs/Day Years [...] Office Visit LEATHA CARRILLO - [facility] [address] [facility] [address] [place] [phone] Brenda Clay MD [address] [facility] [address] [place] [address] 04/15/2026 10:00 AM EDT Office Visit LE[facility]HA [facility] at [facility] + [facility] [address] [facility] [address] [place] [address] Sena Dominguez PA [address] [facility] [place] [address] documented as of this encounter Visit Diagnoses Not on filedocumented in this encounter Care Teams Magazine Worker Relationship Specialty Start Date End Date Meme Steel MD [address] [place] [address] 105 [place] [address] PCP - General Pediatrics 06/05/18 04/25/22 No Pcp, Pcp PCP - General 06/08/22 07/19/22 Guadalupe Mcbride MD PCP - General Family Medicine 07/20/22 11/01/23 Sena Dominguez PA [address] [place] [address] [place] [address] PCP - BRADY Physician Architectural Wood Model Maker 11/02/23 Levy Barry MD [address] [place] [address] [place] [address] PCP - General Family Medicine 12/20/23 documented as of this encounter
--- OUTSIDE RECORDS SUMMARY | 2025-07-28 14:41 | XMS_ITS | Encounter Summary ---
Author Organization [facility] work ([facility]) Address [address] [place] [address] Care Team Providers Care Interim Controller Name Role Phone Meme Steel MD Primary Care Provider [phone] Pcp, Pcp Primary Care Provider Unavailabl Guadalupe Bardales MD Primary Care Provider [phone] Sena Dominguez Unavailable [phone] Levy Barry MD Primary Care Provider Unavailab le Source Comments The information that you have received may contain highly confidential and/or federally protected health information. This information has been disclosed to you from records protected by [facility]. The law prohibits you from making [...] error, please contact the sender immediately.[facility] ([facility]) Encounter Details Date Type Department Care Team (Late st Contact Info) Description 08/12/2008 Historical Note [facility] [employer] System Devyn Vásquez MD [address] [place] [address] [phone] Social History Tobacco Use Types Packs/Day Years [...] Visit LEATHA CARRILLO - [facility] [address] [facility] [address] [place] [phone] Brenda Clay MD [address] [facility] [address] [place] [phone] 04/15/2026 10:00 AM EDT Office Visit LEATHA Primary Care at [facility] + [facility] [address] [facility] [address] [place] [address] Sena Dominguez PA [address] [facility] [place] [address] documented as of this encounter Visit Diagnoses Not on filedocumented in this encounter Care Teams Interim Controller Relationship Specialty Start Date End Date Meme Steel MD [address] [place] [address] 105 [place] [address] PCP - General Pediatrics 06/05/18 04/25/22 No Pcp, Pcp PCP - General 06/08/22 07/19/22 Guadalupe Mcbride MD PCP - General Family Medicine 07/20/22 11/01/23 Sena Dominguez PA [address] [place] [address] [place] [address] PCP - BRADY Physician University Services Program Associate 11/02/23 Levy Barry MD [address] [place] [address] [place] [address] PCP - General Family Medicine 12/20/23 documented as of this encounter
--- OUTSIDE RECORDS SUMMARY | 2025-07-28 14:41 | XMS_ITS | Encounter Summary ---
Author Organization [facility] work ([facility]) Address [address] [place] [address] Care Team Providers Care Natural Resource Specialist Name Role Phone Meme Steel MD Primary Care Provider No Pcp, Pcp Primary Care Provider Unavailabl Guadalupe Bardales MD Primary Care Provider [phone] Sena Dominguez Unavailable [phone] Levy Barry MD Primary Care Provider Unavailab le Source Comments The information that you have received may contain highly confidential and/or federally protected health information. This information has been disclosed to you from records protected by [facility]. The law prohibits you [...] please contact the sender immediately.[facility] ([facility]) Encounter Details Date Type Department Care Team (Late st Contact Info) Description 01/26/2005 Historical Note [facility] [employer] System Devyn Vásquez MD [address] [place] [address] [phone] Social History Tobacco Use Types Packs/Day Years [...] LEATHA CARRILLO - [facility] [address] [facility] [address] [place] [phone] Brenda Clay MD [address] [facility] [address] [place] [phone] 04/15/2026 10:00 AM EDT Office Visit LEATHA [facility] at [facility] + [facility] [address] [facility] [address] [place] [address] Sena Dominguez PA [address] [facility] [place] [address] documented as of this encounter Visit Diagnoses Not on filedocumented in this encounter Care Teams Natural Resource Specialist Relationship Specialty Start Date End Date Mmee Steel MD [address] [place] [address] 105 [place] [address] PCP - General Pediatrics 06/05/18 04/25/22 No Pcp, Pcp PCP - General 06/08/22 07/19/22 Guadalupe Mcbride MD PCP - General Family Medicine 07/20/22 11/01/23 Sena Dominguez PA [address] [place] [address] [place] [address] PCP - BRADY Physician Senior Education Specialist 11/02/23 Levy Barry MD [address] [place] [address] [place] [address] PCP - General Family Medicine 12/20/23 documented as of this encounter
--- OUTSIDE RECORDS SUMMARY | 2025-07-28 14:41 | XMS_ITS | Encounter Summary ---
Author Organization [facility] work ([facility]) Address [address] [place] [address] Care Team Providers Care Standard Machine Stitcher Name Role Phone Meme Steel MD Primary Care Provider [phone] Pcp, Pcp Primary Care Provider Unavailabl Guadalupe Bardales MD Primary Care Provider [phone] Sena Dominguez Unavailable [phone] Levy Barry MD Primary Care Provider Unavailab le Source Comments The information that you have received may contain highly confidential and/or federally protected health information. This information has been disclosed to you from records protected by [facility]. The law prohibits you from [...] please contact the sender immediately.[facility] ([facility]) Encounter Details Date Type Department Care Team (Late st Contact Info) Description 10/07/2015 Historical Note [facility] [employer] System Devyn Vásquez MD [address] [place] [address] [phone] Social History Tobacco Use Types Packs/Day Years [...] LEATHA CARRILLO - [facility] at [facility] [address] [facility] [address] [place] [phone] Brenda Clay MD [address] [facility] [address] [place] [phone] 04/15/2026 10:00 AM EDT Office Visit LEATHA [facility] at [facility] + [facility] [address] [facility] [address] [place] [address] Sena Dominguez PA [address] [facility] [place] [address] documented as of this encounter Visit Diagnoses Not on filedocumented in this encounter Care Teams Standard Machine Stitcher Relationship Specialty Start Date End Date Meme Steel MD [address] [place] [address] 105 [place] [address] PCP - General Pediatrics 06/05/18 04/25/22 No Pcp, Pcp PCP - General 06/08/22 07/19/22 Guadalupe Mcbride MD PCP - General Family Medicine 07/20/22 11/01/23 Sena Dominguez PA [address] [place] [address] [place] [address] PCP - BRADY Physician Hydrator Operator 11/02/23 Levy Barry MD [address] [place] [address] [place] [address] PCP - General Family Medicine 12/20/23 documented as of this encounter
--- OUTSIDE RECORDS SUMMARY | 2025-07-28 14:41 | XMS_ITS | Encounter Summary ---
Author Organization [facility] work ([facility]) Address [address] [place] [address] Care Team Providers Care Ring Facer Name Role Phone Meme Steel MD Primary Care Provider [phone] Pcp, Pcp Primary Care Provider Unavailabl Guadalupe Bardales MD Primary Care Provider [phone] Sena Dominguez Unavailable [phone] Levy Barry MD Primary Care Provider Unavailab le Source Comments The information that you have received may contain highly confidential and/or federally protected health information. This information has been disclosed to you from records protected by [facility]. The law prohibits you [...] contact the sender immediately.[facility] ([facility]) Encounter Details Date Type Department Care Team (Late st Contact Info) Description 01/28/2005 Historical Note [facility] [employer] System Devyn Vásquez MD [address] [place] [address] [phone] Social History Tobacco Use Types Packs/Day Years [...] CARRILLO - [facility] [address] [facility] [address] [place] [phone] Brenda Clay MD [address] [facility] [address] [place] [address] 04/15/2026 10:00 AM EDT Office Visit LEATHA [facility] at [facility] [place] [address] [facility] [address] [place] [address] Sena Dominguez PA [address] [facility] [place] [address] documented as of this encounter Visit Diagnoses Not on filedocumented in this encounter Care Teams Ring Facer Relationship Specialty Start Date End Date Meme Steel MD [address] [place] [address] 105 [place] [address] PCP - General Pediatrics 06/05/18 04/25/22 No Pcp, Pcp PCP - General 06/08/22 07/19/22 Guadalupe Mcbride MD PCP - General Family Medicine 07/20/22 11/01/23 Sena Dominguez PA [address] [place] [address] [place] [address] PCP - BRADY Physician Business Representative 11/02/23 Levy Barry MD [address] [place] [address] [place] [address] PCP - General Family Medicine 12/20/23 documented as of this encounter
--- OUTSIDE RECORDS SUMMARY | 2025-07-28 14:41 | XMS_ITS | Encounter Summary ---
Author Organization [facility] work ([facility]) Address [address] [place] [address] Care Team Providers Care Tafe Lecturer Name Role Phone Meme Steel MD Primary Care Provider No Pcp, Pcp Primary Care Provider Unavailabl Guadalupe Bardales MD Primary Care Provider [phone] Sena Dominguez Unavailable Levy Barry MD Primary Care Provider Unavailab le Source Comments The information that you have received may contain highly confidential and/or federally protected health information. This information has been disclosed to you from records protected by [facility]. The law prohibits you [...] sender immediately.[facility] ([facility]) Encounter Details Date Type Department Care Team (Late st Contact Info) Description 2004 Historical Note [facility] [employer] System Devyn Vásquez MD [address] [place] [address] [phone] Social History Tobacco Use Types Packs/Day Years [...] LEATHA CARRILLO - [facility] [address] [facility] [address] [place] [phone] Brenda Clay MD [address] [facility] [address] [place] [address] 04/15/2026 10:00 AM EDT Office Visit LEATHA [facility] at [facility] + [facility] [address] [facility] [address] [place] [address] Sena Dominguez PA [address] [facility] [place] [address] documented as of this encounter Visit Diagnoses Not on filedocumented in this encounter Care Teams Tafe Lecturer Relationship Specialty Start Date End Date Meme Steel MD [address] [place] [address] 105 [place] [address] PCP - General Pediatrics 06/05/18 04/25/22 No Pcp, Pcp PCP - General 06/08/22 07/19/22 Guadalupe Mcbride MD PCP - General Family Medicine 07/20/22 11/01/23 Sena Dominguez PA [address] [place] [address] [place] [address] PCP - BRADY Physician Aquatics Manager 11/02/23 Levy Barry MD [address] [place] [address] [place] [address] PCP - General Family Medicine 12/20/23 documented as of this encounter
--- OUTSIDE RECORDS SUMMARY | 2025-07-28 14:41 | XMS_ITS | Encounter Summary ---
Author Organization [facility] work ([facility]) Address [address] [place] [address] Care Team Providers Care Anvil Worker Name Role Phone Meme Steel MD Primary Care Provider [phone] Pcp, Pcp Primary Care Provider Unavailabl Guadalupe Bardales MD Primary Care Provider [phone] Sena Dominguez Unavailable [phone] Levy Barry MD Primary Care Provider Unavailab le Source Comments The information that you have received may contain highly confidential and/or federally protected health information. This information has been disclosed to you from records protected by [facility]. The law prohibits you [...] contact the sender immediately.[facility] ([facility]) Encounter Details Date Type Department Care Team (Late st Contact Info) Description 2004 Historical Note [facility] [employer] [facility] Devyn Vásquez MD [address] [place] [phone] Social History Tobacco Use Types Packs/Day Years [...] CARRILLO - [facility] [address] [facility] [address] [place] [phone] Brenda Clay MD [address] [facility] [address] [place] [address] 04/15/2026 10:00 AM EDT Office Visit [facility] [address] [facility] [address] [place] [address] Sena Dominguez PA [address] [facility] [place] [address] documented as of this encounter Visit Diagnoses Not on filedocumented in this encounter Care Teams Anvil Worker Relationship Specialty Start Date End Date Meme Steel MD [address] [place] [address] 105 [place] [address] PCP - General Pediatrics 06/05/18 04/25/22 No Pcp, Pcp PCP - General 06/08/22 07/19/22 Guadalupe Mcbride MD PCP - General Family Medicine 07/20/22 11/01/23 Sena Dominguez PA [address] [place] [address] [place] [address] PCP - BRADY Physician Store Promoter 11/02/23 Levy Barry MD [address] [place] [address] [place] [address] PCP - General Family Medicine 12/20/23 documented as of this encounter
--- OUTSIDE RECORDS SUMMARY | 2025-07-28 14:41 | XMS_ITS | Encounter Summary ---
Author Organization [facility] work ([facility]) Address [address] [place] [address] Care Team Providers Care Bone Glue Maker Name Role Phone Meme Steel MD Primary Care Provider [phone] Pcp, Pcp Primary Care Provider Unavailabl Guadalupe Bardales MD Primary Care Provider [phone] Sena Dominguez Unavailable [phone] Levy Barry MD Primary Care Provider Unavailab le Source Comments The information that you have received may contain highly confidential and/or federally protected health information. This information has been disclosed to you from records protected by [facility]. The law prohibits you [...] immediately.[facility] ([facility]) Encounter Details Date Type Department Care Team (Late st Contact Info) Description 10/06/2015 Historical Note [facility] [employer] System Devyn Vásquez MD [address] [place] [address] [phone] Social History Tobacco Use Types Packs/Day Years [...] - [facility] at [facility] [address] [facility] [address] [place] [phone] Brenda Clay MD [address] [facility] [address] [place] [address] 04/15/2026 10:00 AM EDT Office Visit [facility] [address] [facility] [address] [place] [address] Sena Dominguez PA [address] [facility] [place] [address] documented as of this encounter Visit Diagnoses Not on filedocumented in this encounter Care Teams Bone Glue Maker Relationship Specialty Start Date End Date Meme Steel MD [address] [place] [address] 105 [place] [address] PCP - General Pediatrics 06/05/18 04/25/22 No Pcp, Pcp PCP - General 06/08/22 07/19/22 Guadalupe Mcbride MD PCP - General Family Medicine 07/20/22 11/01/23 eSna Dominguez PA [address] [place] [address] [place] [address] PCP - BRADY Physician Sales Department Manager 11/02/23 Levy Barry MD [address] [place] [address] [place] [address] PCP - General Family Medicine 12/20/23 documented as of this encounter
--- OUTSIDE RECORDS SUMMARY | 2025-07-28 14:41 | XMS_ITS | Encounter Summary ---
Author Organization [facility] work ([facility]) Address [address] [place] [address] Care Team Providers Care Physical Science Professor Name Role Phone Meme Steel MD Primary Care Provider [phone] No Pcp, Pcp Primary Care Provider Unavailabl Guadalupe Bardales MD Primary Care Provider [phone] Sena Dominguez Unavailable [phone] Levy Barry MD Primary Care Provider Unavailab le Source Comments The information that you have received may contain highly confidential and/or federally protected health information. This information has been disclosed to you from records protected by [facility]. The law prohibits you from [...] please contact the sender immediately.[facility] ([facility]) Encounter Details Date Type Department Care Team (Late st Contact Info) Description 04/09/2009 Historical Note [facility] [employer] System Devyn Vásquez MD [address] [place] [address] [phone] Social History Tobacco Use Types Packs/Day Years [...] LEATHA CARRILLO - [facility] [address] [facility] [address] [place] [phone] Brenda Clay MD [address] [facility] [address] [place] [address] 04/15/2026 10:00 AM EDT Office Visit LEATHA [facility] at [facility] + [facility] [address] [facility] [address] [place] [address] Sena Dominguez PA [address] [facility] [place] [address] documented as of this encounter Visit Diagnoses Not on filedocumented in this encounter Care Teams Physical Science Professor Relationship Specialty Start Date End Date Meme Steel MD [address] [place] [address] 105 [place] [address] PCP - General Pediatrics 06/05/18 04/25/22 No Pcp, Pcp PCP - General 06/08/22 07/19/22 Guadalupe Mcbride MD PCP - General Family Medicine 07/20/22 11/01/23 Sena Dominguez PA [address] [place] [address] [place] [address] PCP - BRADY Physician Finish Specialist 11/02/23 Levy Barry MD [address] [place] [address] [place] [address] PCP - General Family Medicine 12/20/23 documented as of this encounter
--- OUTSIDE RECORDS SUMMARY | 2025-07-28 14:41 | XMS_ITS | Encounter Summary ---
Author Organization [facility] work ([facility]) Address [address] [place] [address] Care Team Providers Care Grinding Operator Name Role Phone Meme Steel MD Primary Care Provider [phone] Pcp, Pcp Primary Care Provider Unavailabl Guadalupe Bardales MD Primary Care Provider [phone] Sena Dominguez Unavailable [phone] Levy Barry MD Primary Care Provider Unavailab le Source Comments The information that you have received may contain highly confidential and/or federally protected health information. This information has been disclosed to you from records protected by [facility]. The law prohibits you from making [...] immediately.[facility] ([facility]) Encounter Details Date Type Department Care Team (Late st Contact Info) Description 03/10/2009 Historical Note SVM[facility] Austral 3D System Devyn Vásquez MD [address] [place] [address] [phone] Social History Tobacco Use Types Packs/Day Years [...] LEATHA CARRILLO - [facility] [address] [facility] [address] [place] [phone] Brenda Clay MD [address] [facility] [address] [place] [address] 04/15/2026 10:00 AM EDT Office Visit [facility]HA [facility] at [facility] + [facility] [address] [facility] [address] [place] [address] Sena Dominguez PA [address] [facility] [place] [address] documented as of this encounter Visit Diagnoses Not on filedocumented in this encounter Care Teams Grinding Operator Relationship Specialty Start Date End Date Meme Steel MD [address] [place] [address] 105 [place] [address] PCP - General Pediatrics 06/05/18 04/25/22 No Pcp, Pcp PCP - General 06/08/22 07/19/22 Guadalupe Mcbride MD PCP - General Family Medicine 07/20/22 11/01/23 Sena Dominguez PA [address] [place] [address] [place] [address] PCP - BRADY Physician Director Of Academic Support 11/02/23 Levy Barry MD [address] [place] [address] [place] [address] PCP - General Family Medicine 12/20/23 documented as of this encounter
--- OUTSIDE RECORDS SUMMARY | 2025-07-28 14:41 | XMS_ITS | Encounter Summary ---
Author Organization [facility] work ([facility]) Address [address] [place] [address] Care Team Providers Care Pbx Technician Name Role Phone Meme Steel MD Primary Care Provider [phone] Pcp, Pcp Primary Care Provider Unavailabl Guadalupe Bardales MD Primary Care Provider [phone] Sena Dominguez Unavailable [phone] Levy Barry MD Primary Care Provider Unavailab le Source Comments The information that you have received may contain highly confidential and/or federally protected health information. This information has been disclosed to you from records protected by [facility]. The law prohibits you from making [...] contact the sender immediately.[facility] ([facility]) Encounter Details Date Type Department Care Team (Late st Contact Info) Description 10/05/2015 Historical Note [facility] NEWLINE SOFTWARE System Devyn Vásquez MD [address] [place] [address] [phone] Social History Tobacco Use Types Packs/Day Years [...] Visit LEATHA CARRILLO - [facility] [address] [facility] [address] [place] [phone] Brenda Clay MD [address] [facility] [address] [place] [address] 04/15/2026 10:00 AM EDT Office Visit [facility] at [facility] + [facility] [address] [facility] [address] [place] [address] Sena Dominguez PA [address] [facility] [place] [address] documented as of this encounter Visit Diagnoses Not on filedocumented in this encounter Care Teams Pbx Technician Relationship Specialty Start Date End Date Meme Steel MD [address] [place] [address] 105 [place] [address] PCP - General Pediatrics 06/05/18 04/25/22 No Pcp, Pcp PCP - General 06/08/22 07/19/22 Guadalupe Mcbride MD PCP - General Family Medicine 07/20/22 11/01/23 Sena Dominguez PA [address] [place] [address] [place] [address] PCP - BRADY Physician Room Service Server 11/02/23 Levy Barry MD [address] [place] [address] [place] [address] PCP - General Family Medicine 12/20/23 documented as of this encounter
--- OUTSIDE RECORDS SUMMARY | 2025-07-28 14:41 | XMS_ITS | Encounter Summary ---
Author Organization [facility] work ([facility]) Address [address] [place] [address] Care Team Providers Care Nissan Sales Consultant Name Role Phone Meme Steel MD Primary Care Provider [phone] Pcp, Pcp Primary Care Provider Unavailabl Guadalupe Bardales MD Primary Care Provider [phone] Sena Dominguez Unavailable [phone] Levy Barry MD Primary Care Provider Unavailab le Source Comments The information that you have received may contain highly confidential and/or federally protected health information. This information has been disclosed to you from records protected by [facility]. The law prohibits you [...] error, please contact the sender immediately.[facility] ([facility]) Encounter Details Date Type Department Care Team (Late st Contact Info) Description 08/06/2009 Historical Note [facility]G Bioceros System Devyn Vásquez MD [address] [place] [address] [phone] Social History Tobacco Use Types Packs/Day Years [...] CARRILLO - [facility] [address] [facility] [address] [place] [phone] Brenda Clay MD [address] [facility] [address] [place] [address] 04/15/2026 10:00 AM EDT Office Visit LE[facility]HA [facility] at [facility] + [facility] [address] [facility] [address] [place] [address] Sena Dominguez PA [address] [facility] [place] [address] documented as of this encounter Visit Diagnoses Not on filedocumented in this encounter Care Teams Nissan Sales Consultant Relationship Specialty Start Date End Date Meme Steel MD [address] [place] [address] 105 [place] [address] PCP - General Pediatrics 06/05/18 04/25/22 No Pcp, Pcp PCP - General 06/08/22 07/19/22 Guadalupe Mcbride MD PCP - General Family Medicine 07/20/22 11/01/23 Sena Dominguez PA [address] [place] [address] [place] [address] PCP - BRADY Physician Propagator Laborer 11/02/23 Levy Barry MD [address] [place] [address] [place] [address] PCP - General Family Medicine 12/20/23 documented as of this encounter
--- OUTSIDE RECORDS SUMMARY | 2025-07-28 14:41 | XMS_ITS | Encounter Summary ---
Author Organization [facility] work ([facility]) Address [address] [place] [address] Care Team Providers Care Business Intelligence Etl Developer Name Role Phone Meme Steel MD Primary Care Provider [phone] Pcp, Pcp Primary Care Provider Unavailabl Guadalupe Bardales MD Primary Care Provider [phone] Sena Dominguez Unavailable [phone] Levy Barry MD Primary Care Provider Unavailab le Source Comments The information that you have received may contain highly confidential and/or federally protected health information. This information has been disclosed to you from records protected by [facility]. The law prohibits you from making [...] the sender immediately.[facility] ([facility]) Encounter Details Date Type Department Care Team (Late st Contact Info) Description 03/31/2009 Historical Note [facility] docTrackr System Devyn Vásquez MD [address] [place] [address] [phone] Social History Tobacco Use Types Packs/Day Years [...] Visit LEATHA CARRILLO - [facility] [address] [facility] [address] [place] [phone] Brenda Clay MD [address] [facility] [address] [place] [address] 04/15/2026 10:00 AM EDT Office Visit LEATHA [facility] at [facility] + [facility] [address] [facility] [address] [place] [address] Sena Dominguez PA [address] [facility] [place] [address] documented as of this encounter Visit Diagnoses Not on filedocumented in this encounter Care Teams Business Intelligence Etl Developer Relationship Specialty Start Date End Date Meme Steel MD [address] [place] [address] 105 [place] [address] PCP - General Pediatrics 06/05/18 04/25/22 No Pcp, Pcp PCP - General 06/08/22 07/19/22 Guadalupe Mcbride MD PCP - General Family Medicine 07/20/22 11/01/23 Sena Dominguez PA [address] [place] [address] [place] [address] PCP - BRADY Physician Airport Ramp Attendant 11/02/23 Levy Barry MD [address] [place] [address] [place] [address] PCP - General Family Medicine 12/20/23 documented as of this encounter
--- OUTSIDE RECORDS SUMMARY | 2025-07-28 14:41 | XMS_ITS | Encounter Summary ---
Author Organization [facility] work ([facility]) Address [address] [place] [address] Care Team Providers Care President Consumer Electronics Company Name Role Phone Meme Steel MD Primary Care Provider [phone] No Pcp, Pcp Primary Care Provider Unavailabl Guadalupe Bardales MD Primary Care Provider [phone] Sena Dominguez Unavailable Levy Barry MD Primary Care Provider Unavailab le Source Comments The information that you have received may contain highly confidential and/or federally protected health information. This information has been disclosed to you from records protected by [facility]. The law prohibits you from making [...] please contact the sender immediately.[facility] ([facility]) Encounter Details Date Type Department Care Team (Late st Contact Info) Description 03/03/2005 Historical Note [facility] Withlocals System Devyn Vásquez MD [address] [place] [address] [phone] Social History Tobacco Use Types Packs/Day Years [...] - [facility] [address] [facility] [address] [place] [phone] Brenda Clay MD [address] [facility] [address] [place] [address] 04/15/2026 10:00 AM EDT Office Visit LEATHA [facility] at [facility] + [facility] [address] [facility] [address] [place] [address] Sena Dominguez PA [address] [facility] [place] [address] documented as of this encounter Visit Diagnoses Not on filedocumented in this encounter Care Teams President Consumer Electronics Company Relationship Specialty Start Date End Date Meme Steel MD [address] [place] [address] 105 [place] [address] PCP - General Pediatrics 06/05/18 04/25/22 No Pcp, Pcp PCP - General 06/08/22 07/19/22 Guadalupe Mcbride MD PCP - General Family Medicine 07/20/22 11/01/23 Sena Dominguez PA [address] [place] [address] [place] [address] PCP - BRADY Physician Wire Chief 11/02/23 Levy Barry MD [address] [place] [address] [place] [address] PCP - General Family Medicine 12/20/23 documented as of this encounter
--- OUTSIDE RECORDS SUMMARY | 2025-07-28 14:41 | XMS_ITS | Encounter Summary ---
Author Organization [facility] work ([facility]) Address [address] [facility] [address] [place] [address] Care Team Providers Care Auto Service Station Attendant Name Role Phone Meme Steel MD Primary Care Provider [phone] Pcp, Pcp Primary Care Provider Unavailabl Guadalupe Bardales MD Primary Care Provider [phone] Sena Dominguez Unavailable [phone] Levy Barry MD Primary Care Provider Unavailab le Source Comments The information that you have received may contain highly confidential and/or federally protected health information. This information has been disclosed to you from records protected by [facility]. The law [...] please contact the sender immediately.[facility] ([facility]) Encounter Details Date Type Department Care Team (Late st Contact Info) Description 03/09/2005 Historical Note SVMG Dwllr System Devyn Vásquez MD [address] [place] [address] [phone] Social History Tobacco Use Types Packs/Day Years [...] - [facility] at [facility] [address] [facility] [address] [place] [phone] Brenda Clay MD [address] [facility] [address] [place] [address] 04/15/2026 10:00 AM EDT Office Visit LEATHA [facility] at [facility] + [facility] [address] [facility] [address] [place] [address] Sena Dominguez PA [address] [facility] [place] [address] documented as of this encounter Visit Diagnoses Not on filedocumented in this encounter Care Teams Auto Service Station Attendant Relationship Specialty Start Date End Date Meme Steel MD [address] [place] [address] 105 [place] [address] PCP - General Pediatrics 06/05/18 04/25/22 No Pcp, Pcp PCP - General 06/08/22 07/19/22 Guadalupe Mcbride MD PCP - General Family Medicine 07/20/22 11/01/23 Sena Dominguez PA [address] [place] [address] [place] [address] PCP - BRADY Physician Truck Assembler 11/02/23 Levy Barry MD [address] [place] [address] [place] [address] PCP - General Family Medicine 12/20/23 documented as of this encounter
--- OUTSIDE RECORDS SUMMARY | 2025-07-28 14:41 | XMS_ITS | Encounter Summary ---
Author Organization [facility] work ([facility]) Address [address] [facility] [address] [place] [address] Care Team Providers Care Multimedia Author Name Role Phone Meme Steel MD Primary Care Provider [phone] Pcp, Pcp Primary Care Provider Unavailabl Guadalupe Bardales MD Primary Care Provider [phone] Sena Dominguez Unavailable [phone] Levy Barry MD Primary Care Provider Unavailab le Source Comments The information that you have received may contain highly confidential and/or federally protected health information. This information has been disclosed to you from records protected by [facility]. The law prohibits you from making [...] information in error, please contact the sender immediately.[facility] ([facility]) Encounter Details Date Type Department Care Team (Late st Contact Info) Description 03/02/2005 Historical Note [facility]G Vatler System Devyn Vásquez MD [address] [place] [address] [phone] Social History Tobacco Use Types Packs/Day Years [...] LEATHA CARRILLO - [facility] at [facility] [address] [facility] [address] [place] [phone] Brenda Clay MD [address] [facility] [address] [place] [address] 04/15/2026 10:00 AM EDT Office Visit LEATHA [facility] at [facility] + [facility] [address] [facility] [address] [place] [address] Sena Dominguez PA [address] [facility] [place] [address] documented as of this encounter Visit Diagnoses Not on filedocumented in this encounter Care Teams Multimedia Author Relationship Specialty Start Date End Date Meme Steel MD [address] [place] [address] 105 [place] [address] PCP - General Pediatrics 06/05/18 04/25/22 No Pcp, Pcp PCP - General 06/08/22 07/19/22 Guadalupe Mcbride MD PCP - General Family Medicine 07/20/22 11/01/23 Sena Dominguez PA [address] [place] [address] [place] [address] PCP - BRADY Physician Life Agent 11/02/23 Levy Barry MD [address] [place] [address] [place] [address] PCP - General Family Medicine 12/20/23 documented as of this encounter
--- OUTSIDE RECORDS SUMMARY | 2025-07-28 14:41 | XMS_ITS | Encounter Summary ---
Author Organization [facility] work ([facility]) Address [address] [facility] [place] [address] [place] [address] Care Team Providers Care Grinder Operator Tool Name Role Phone Meme Steel MD Primary Care Provider [phone] Pcp, Pcp Primary Care Provider Unavailabl Guadalupe Bardales MD Primary Care Provider [phone] Sena Dominguez Unavailable [phone] Levy Barry MD Primary Care Provider Unavailab le Source Comments The information that you have received may contain highly confidential and/or federally protected health information. This information has been disclosed to you from records protected by [facility]. The law prohibits you from making [...] please contact the sender immediately.[facility] ([facility]) Encounter Details Date Type Department Care Team (Late st Contact Info) Description 11/27/2015 Historical Note [facility]G Screenz System Devyn Vásquez MD [address] [place] [address] [phone] Social History Tobacco Use Types Packs/Day Years [...] - [facility] [address] [facility] [address] [place] [phone] Bernda Clay MD [address] [facility] [address] [place] [address] 04/15/2026 10:00 AM EDT Office Visit LE[facility]HA [facility] at [facility] + [facility] [address] [facility] [address] [place] [address] Sena Dominguez PA [address] [facility] [place] [address] documented as of this encounter Visit Diagnoses Not on filedocumented in this encounter Care Teams Grinder Operator Tool Relationship Specialty Start Date End Date Meme Steel MD [address] [place] [address] 105 [place] [address] PCP - General Pediatrics 06/05/18 04/25/22 No Pcp, Pcp PCP - General 06/08/22 07/19/22 Guadalupe Mcbride MD PCP - General Family Medicine 07/20/22 11/01/23 Sena Dominguez PA [address] [place] [address] [place] [address] PCP - BRADY Physician Industrial Electrical Engineer 11/02/23 Levy Barry MD [address] [place] [address] [place] [address] PCP - General Family Medicine 12/20/23 documented as of this encounter
--- OUTSIDE RECORDS SUMMARY | 2025-07-28 14:41 | XMS_ITS | Encounter Summary ---
Author Organization [facility] work ([facility]) Address [address] [place] [address] Care Team Providers Care Genetic Counsellor Name Role Phone Meme Steel MD Primary Care Provider [phone] No Pcp, Pcp Primary Care Provider Unavailabl Guadalupe Bardales MD Primary Care Provider [phone] Sena Dominguez Unavailable [phone] Levy Barry MD Primary Care Provider Unavailab le Source Comments The information that you have received may contain highly confidential and/or federally protected health information. This information has been disclosed to you from records protected by [facility]. The law prohibits you from [...] contact the sender immediately.[facility] ([facility]) Encounter Details Date Type Department Care Team (Late st Contact Info) Description 09/15/2015 Historical Note [facility]G Ferfics System Devyn Vásquez MD [address] [place] [address] [phone] Social History Tobacco Use Types Packs/Day Years [...] CARRILLO - [facility] at [facility] [address] [facility] [address] [place] [phone] Brenda Clay MD [address] [facility] [address] [place] [address] 04/15/2026 10:00 AM EDT Office Visit LE[facility]HA [facility] at [facility] + [facility] [address] [facility] [address] [place] [address] Sena Dominguez PA [address] [facility] [place] [address] documented as of this encounter Visit Diagnoses Not on filedocumented in this encounter Care Teams Genetic Counsellor Relationship Specialty Start Date End Date Meme Steel MD [address] [place] [address] 105 [place] [address] PCP - General Pediatrics 06/05/18 04/25/22 No Pcp, Pcp PCP - General 06/08/22 07/19/22 Guadalupe Mcbride MD PCP - General Family Medicine 07/20/22 11/01/23 Sena Dominguez PA [address] [place] [address] [place] [address] PCP - BRADY Physician Shoemaking Finisher 11/02/23 Levy Barry MD [address] [place] [address] [place] [address] PCP - General Family Medicine 12/20/23 documented as of this encounter
--- OUTSIDE RECORDS SUMMARY | 2025-07-28 14:41 | XMS_ITS | Encounter Summary ---
Author Organization [facility] work ([facility]) Address [address] [place] [address] Care Team Providers Care Executive Wellness Programs Director Name Role Phone Meme Steel MD Primary Care Provider [phone] Pcp, Pcp Primary Care Provider Unavailabl Guadalupe Bardales MD Primary Care Provider [phone] Sena Dominguez Unavailable [phone] Levy Barry MD Primary Care Provider Unavailab le Source Comments The information that you have received may contain highly confidential and/or federally protected health information. This information has been disclosed to you from records protected by [facility]. The law prohibits you from [...] the sender immediately.[facility] ([facility]) Encounter Details Date Type Department Care Team (Late st Contact Info) Description 2004 Historical Note [facility] RecordSetter System Devyn Vásquez MD [address] [place] [address] [phone] Social History Tobacco Use Types Packs/Day Years [...] LEATHA CARRILLO - [facility] [address] [facility] [address] [place] [phone] Brenda Clay MD [address] [facility] [address] [place] [address] 04/15/2026 10:00 AM EDT Office Visit [facility] + [facility] [address] [facility] [address] [place] [address] Sena Dominguez PA [address] [facility] [place] [address] documented as of this encounter Visit Diagnoses Not on filedocumented in this encounter Care Teams Executive Wellness Programs Director Relationship Specialty Start Date End Date Meme Steel MD [address] [place] [address] 105 [place] [address] PCP - General Pediatrics 06/05/18 04/25/22 No Pcp, Pcp PCP - General 06/08/22 07/19/22 Guadalupe Mcbride MD PCP - General Family Medicine 07/20/22 11/01/23 Sena Dominguez PA [address] [place] [address] [place] [address] PCP - BRADY Physician Timber Setter 11/02/23 Levy Barry MD [address] [place] [address] [place] [address] PCP - General Family Medicine 12/20/23 documented as of this encounter
--- OUTSIDE RECORDS SUMMARY | 2025-07-28 14:41 | XMS_ITS | Encounter Summary ---
Author Organization [facility] work ([facility]) Address [address] [place] [address] Care Team Providers Care Technical Services Rep Name Role Phone Meme Steel MD Primary Care Provider [phone] Pcp, Pcp Primary Care Provider Unavailabl Guadalupe Bardales MD Primary Care Provider [phone] Sena Dominguez Unavailable [phone] Levy Barry MD Primary Care Provider Unavailab le Source Comments The information that you have received may contain highly confidential and/or federally protected health information. This information has been disclosed to you from records protected by [facility]. The law prohibits you from [...] please contact the sender immediately.[facility] ([facility]) Encounter Details Date Type Department Care Team (Late st Contact Info) Description 05/28/2015 Historical Note [facility] Cardback System Devyn Vásquez MD [address] [place] [address] [phone] Social History Tobacco Use Types Packs/Day Years [...] Visit LEATHA CARRILLO - [facility] [address] [facility] [address] [place] [phone] Brenda Clay MD [address] [facility] [address] [place] [address] 04/15/2026 10:00 AM EDT Office Visit [facility] at [facility] + [facility] [address] [facility] [address] [place] [address] Sena Dominguez PA [address] [facility] [place] [address] documented as of this encounter Visit Diagnoses Not on filedocumented in this encounter Care Teams Technical Services Rep Relationship Specialty Start Date End Date Meme Steel MD [address] [place] [address] [place] [address] PCP - General Pediatrics 06/05/18 04/25/22 No Pcp, Pcp PCP - General 06/08/22 07/19/22 Guadalupe Mcbride MD PCP - General Family Medicine 07/20/22 11/01/23 Sena Dominguez PA [address] [place] [address] [place] [address] PCP - BRADY Physician Direct Marketing Specialist 11/02/23 Levy Barry MD [address] [place] [address] [place] [address] PCP - General Family Medicine 12/20/23 documented as of this encounter
--- OUTSIDE RECORDS SUMMARY | 2025-07-28 14:41 | XMS_ITS | Encounter Summary ---
Author Organization [facility] work ([facility]) Address [address] [place] [address] Care Team Providers Care Prop Making Supervisor Name Role Phone Meme Steel MD Primary Care Provider [phone] Pcp, Pcp Primary Care Provider Unavailabl Guadalupe Bardales MD Primary Care Provider [phone] Sena Dominguez Unavailable [phone] Levy Barry MD Primary Care Provider Unavailab le Source Comments The information that you have received may contain highly confidential and/or federally protected health information. This information has been disclosed to you from records protected by [facility]. The law prohibits you from making [...] sender immediately.[facility] ([facility]) Encounter Details Date Type Department Care Team (Late st Contact Info) Description 02/07/2005 Historical Note [facility] SiO2 Factory System Devyn Vásquez MD [address] [place] [address] [phone] Social History Tobacco Use Types Packs/Day Years [...] LEATHA CARRILLO - [facility] [address] [facility] [address] [place] [phone] Brenda Clay MD [address] [facility] [address] [place] [address] 04/15/2026 10:00 AM EDT Office Visit [facility] at [facility] + [facility] [address] [facility] [address] [place] [address] Sena Dominguez PA [address] [facility] [place] [address] documented as of this encounter Visit Diagnoses Not on filedocumented in this encounter Care Teams Prop Making Supervisor Relationship Specialty Start Date End Date Meme Steel MD [address] [place] [address] [place] [address] PCP - General Pediatrics 06/05/18 04/25/22 No Pcp, Pcp PCP - General 06/08/22 07/19/22 Guadalupe Mcbride MD PCP - General Family Medicine 07/20/22 11/01/23 Sena Dominguez PA [address] [place] [address] [place] [address] PCP - BRADY Physician Data Entry 11/02/23 Levy Barry MD [address] [place] [address] [place] [address] PCP - General Family Medicine 12/20/23 documented as of this encounter
--- OUTSIDE RECORDS SUMMARY | 2025-07-28 14:41 | XMS_ITS | Encounter Summary ---
Author Organization [facility] work ([facility]) Address [address] [facility] [address] [place] [address] Care Team Providers Care Manager Photo Name Role Phone Meme Steel MD Primary Care Provider [phone] No Pcp, Pcp Primary Care Provider Unavailabl Guadalupe Bardales MD Primary Care Provider [phone] Sena Dominguez Unavailable [phone] Levy Barry MD Primary Care Provider Unavailab le Source Comments The information that you have received may contain highly confidential and/or federally protected health information. This information has been disclosed to you from records protected by [email or web address]. The law prohibits you [...] please contact the sender immediately.[facility] ([facility]) Encounter Details Date Type Department Care Team (Late st Contact Info) Description 01/07/2016 Historical Note [facility] [employer] System Devyn Vásquez MD [address] [place] [address] [phone] Social History Tobacco Use Types Packs/Day Years [...] LEATHA CARRILLO - [facility] [address] [facility] [address] [place] [phone] Brenda Clay MD [address] [facility] [address] [place] [address] 04/15/2026 10:00 AM EDT Office Visit [facility] at [facility] + [facility] [address] [facility] [address] [place] [address] Sena Dominguez PA [address] [facility] [place] [address] documented as of this encounter Visit Diagnoses Not on filedocumented in this encounter Care Teams Manager Photo Relationship Specialty Start Date End Date Meme Steel MD [address] [place] [address] 105 [place] [address] PCP - General Pediatrics 06/05/18 04/25/22 No Pcp, Pcp PCP - General 06/08/22 07/19/22 Guadalupe Mcbride MD PCP - General Family Medicine 07/20/22 11/01/23 Sena Dominguez PA [address] [place] [address] [place] [address] PCP - BRADY Physician Granite Polisher 11/02/23 Levy Barry MD [address] [place] [address] [place] [address] PCP - General Family Medicine 12/20/23 documented as of this encounter
--- OUTSIDE RECORDS SUMMARY | 2025-07-28 14:41 | XMS_ITS | Encounter Summary ---
Author Organization [facility] work ([facility]) Address [address] [place] [address] Care Team Providers Care Brewing Director Name Role Phone Meme Steel MD Primary Care Provider [phone] No Pcp, Pcp Primary Care Provider Unavailabl Guadalupe Bardales MD Primary Care Provider [phone] Sena Dominguez Unavailable [phone] Levy Barry MD Primary Care Provider Unavailab le Source Comments The information that you have received may contain highly confidential and/or federally protected health information. This information has been disclosed to you from records protected by [facility]. The law prohibits you from making [...] please contact the sender immediately.[facility] ([facility]) Encounter Details Date Type Department Care Team (Late st Contact Info) Description 04/12/2005 Historical Note [facility] [employer] Devyn Vásquez MD [address] [place] [address] [phone] Social History Tobacco Use Types Packs/Day Years [...] LEATHA CARRILLO - [facility] [address] [facility] [address] [place] [phone] Brenda Clay MD [address] [facility] [address] [place] [phone] 04/15/2026 10:00 AM EDT Office Visit [facility] [address] [facility] [address] [place] [address] Sena Dominguez PA [address] [facility] [place] [address] documented as of this encounter Visit Diagnoses Not on filedocumented in this encounter Care Teams Brewing Director Relationship Specialty Start Date End Date Meme Steel MD [address] [place] [address] 105 [place] [address] PCP - General Pediatrics 06/05/18 04/25/22 No Pcp, Pcp PCP - General 06/08/22 07/19/22 Guadalupe Mcbride MD PCP - General Family Medicine 07/20/22 11/01/23 Sena Dominguez PA [address] [place] [address] [place] [address] PCP - BRADY Physician Grinder Set Up Operator Thread 11/02/23 Levy Barry MD [address] [place] [address] [place] [address] PCP - General Family Medicine 12/20/23 documented as of this encounter
--- OUTSIDE RECORDS SUMMARY | 2025-07-28 14:41 | XMS_ITS | Encounter Summary ---
Author Organization [facility] work ([facility]) Address [address] [place] [address] Care Team Providers Care Product Marketing Executive Name Role Phone Meme Steel MD Primary Care Provider [phone] No Pcp, Pcp Primary Care Provider Unavailabl Guadalupe Bardales MD Primary Care Provider [phone] Sena Dominguez Unavailable [phone] Levy Barry MD Primary Care Provider Unavailab le Source Comments The information that you have received may contain highly confidential and/or federally protected health information. This information has been disclosed to you from records protected by [facility]. The law prohibits [...] error, please contact the sender immediately.[facility] ([facility]) Encounter Details Date Type Department Care Team (Late st Contact Info) Description 2004 Historical Note [facility] Shut Down System Devyn Vásquez MD [address] [place] [address] [phone] Social History Tobacco Use Types Packs/Day Years [...] CARRILLO - [facility] [address] [facility] [address] [place] [phone] Brenda Clay MD [address] [facility] [address] [place] [address] 04/15/2026 10:00 AM EDT Office Visit [facility]HA [facility] at [facility] + [facility] [address] [facility] [address] [place] [address] Sena Dominguez PA [address] [facility] [place] [address] documented as of this encounter Visit Diagnoses Not on filedocumented in this encounter Care Teams Product Marketing Executive Relationship Specialty Start Date End Date Meme Steel MD [address] [place] [address] 105 [place] [address] PCP - General Pediatrics 06/05/18 04/25/22 No Pcp, Pcp PCP - General 06/08/22 07/19/22 Guadalupe Mcbride MD PCP - General Family Medicine 07/20/22 11/01/23 Sena Dominguez PA [address] [place] [address] [place] [address] PCP - BRADY Physician Office Auditor 11/02/23 Levy Barry MD [address] [place] [address] [place] [address] PCP - General Family Medicine 12/20/23 documented as of this encounter
--- OUTSIDE RECORDS SUMMARY | 2025-07-28 14:41 | XMS_ITS | Encounter Summary ---
Author Organization [facility] work ([facility]) Address [address] [place] [address] Care Team Providers Care Spool Hauler Name Role Phone Meme Steel MD Primary Care Provider [phone] No Pcp, Pcp Primary Care Provider Unavailabl Guadalupe Bardales MD Primary Care Provider [phone] Sena Dominguez Unavailable [phone] Levy Barry MD Primary Care Provider Unavailab le Source Comments The information that you have received may contain highly confidential and/or federally protected health information. This information has been disclosed to you from records protected by [facility]. The law prohibits you [...] sender immediately.[facility] ([facility]) Encounter Details Date Type Department Care Team (Late st Contact Info) Description 10/05/2015 Historical Note [facility] Saber Seven System Devyn Vásquez MD [address] [place] [address] [phone] Social History Tobacco Use Types Packs/Day Years [...] Visit LEATHA CARRILLO - [facility] [address] [facility] [address] [place] [phone] Brenda Clay MD [address] [facility] [address] [place] [address] 04/15/2026 10:00 AM EDT Office Visit LE[facility]HA [facility] at [facility] + [facility] [address] [facility] [address] [place] [address] Sena Dominguez PA [address] [facility] [place] [address] documented as of this encounter Visit Diagnoses Not on filedocumented in this encounter Care Teams Spool Hauler Relationship Specialty Start Date End Date Meme Steel MD [address] [place] [address] 105 [place] [address] PCP - General Pediatrics 06/05/18 04/25/22 No Pcp, Pcp PCP - General 06/08/22 07/19/22 Guadalupe Mcbride MD PCP - General Family Medicine 07/20/22 11/01/23 Sena Dominguez PA [address] [place] [address] [place] [address] PCP - BRADY Physician Hose Builder 11/02/23 Levy Barry MD [address] [place] [address] [place] [address] PCP - General Family Medicine 12/20/23 documented as of this encounter
--- OUTSIDE RECORDS SUMMARY | 2025-07-28 14:41 | XMS_ITS | Encounter Summary ---
Author Organization [facility] work ([facility]) Address [address] [place] [address] Care Team Providers Care Flue Lining Dipper Name Role Phone Meme Steel MD Primary Care Provider [phone] No Pcp, Pcp Primary Care Provider Unavailabl Guadalupe Bardales MD Primary Care Provider [phone] Sena Dominguez Unavailable [phone] Levy Barry MD Primary Care Provider Unavailab le Source Comments The information that you have received may contain highly confidential and/or federally protected health information. This information has been disclosed to you from records protected by [facility]. The law prohibits you from [...] please contact the sender immediately.[facility] ([facility]) Encounter Details Date Type Department Care Team (Late st Contact Info) Description 04/09/2009 Historical Note SVMG Moneythink System Devyn Vásquez MD [address] [place] [address] [phone] Social History Tobacco Use Types Packs/Day Years [...] CARRILLO - [facility] [address] [facility] [address] [place] [phone] Brenda Clay MD [address] [facility] [address] [place] [address] 04/15/2026 10:00 AM EDT Office Visit [facility]HA [facility] at [facility] + [facility] [address] [facility] [address] [place] [address] Sena Dominguez PA [address] [facility] [place] [address] documented as of this encounter Visit Diagnoses Not on filedocumented in this encounter Care Teams Flue Lining Dipper Relationship Specialty Start Date End Date Meme Steel MD [address] [place] [address] 105 [place] [address] PCP - General Pediatrics 06/05/18 04/25/22 No Pcp, Pcp PCP - General 06/08/22 07/19/22 Guadalupe Mcbride MD PCP - General Family Medicine 07/20/22 11/01/23 Sena Dominguez PA [address] [place] [address] [place] [address] PCP - BRADY Physician Director Broadcast 11/02/23 Levy Barry MD [address] [place] [address] [place] [address] PCP - General Family Medicine 12/20/23 documented as of this encounter
--- OUTSIDE RECORDS SUMMARY | 2025-07-28 14:41 | XMS_ITS | Encounter Summary ---
Author Organization [facility] work ([facility]) Address [address] [place] [address] Care Team Providers Care Surgical Appliances Salesperson Name Role Phone Meme Steel MD Primary Care Provider [phone] No Pcp, Pcp Primary Care Provider Unavailabl Guadalupe Bardales MD Primary Care Provider [phone] Sena Dominguez Unavailable [phone] Levy Barry MD Primary Care Provider Unavailab le Source Comments The information that you have received may contain highly confidential and/or federally protected health information. This information has been disclosed to you from records protected by [email or web address]. The law prohibits [...] please contact the sender immediately.[facility] ([facility]) Encounter Details Date Type Department Care Team (Late st Contact Info) Description 08/06/2009 Historical Note [facility]G Dokogeo System Devyn Vásquez MD [address] [place] [address] [phone] Social History Tobacco Use Types Packs/Day Years [...] LEATHA CARRILLO - [facility] [address] [facility] [address] [place] [phone] Brenda Clay MD [address] [facility] [address] [place] [address] 04/15/2026 10:00 AM EDT Office Visit [facility]HA [facility] + [facility] [address] [facility] [address] [place] [address] Sena Dominguez PA [address] [facility] [place] [address] documented as of this encounter Visit Diagnoses Not on filedocumented in this encounter Care Teams Surgical Appliances Salesperson Relationship Specialty Start Date End Date Meme Steel MD [address] [place] [address] 105 [place] [address] PCP - General Pediatrics 06/05/18 04/25/22 No Pcp, Pcp PCP - General 06/08/22 07/19/22 Guadalupe Mcbride MD PCP - General Family Medicine 07/20/22 11/01/23 Sena Dominguez PA [address] [place] [address] [place] [address] PCP - BRADY Physician Cager Operator 11/02/23 Levy Barry MD [address] [place] [address] [place] [address] PCP - General Family Medicine 12/20/23 documented as of this encounter
--- OUTSIDE RECORDS SUMMARY | 2025-07-28 14:41 | XMS_ITS | Encounter Summary ---
Author Organization [facility] [address] [facility] work ([facility]) Address [address] [facility] [address] [place] [address] Care Team Providers Care Internet Marketing Specialist Name Role Phone Meme Steel MD Primary Care Provider [phone] No Pcp, Pcp Primary Care Provider Unavailabl Guadalupe Bardales MD Primary Care Provider [phone] Sena Dominguez Unavailable [phone] Levy Barry MD Primary Care Provider Unavailab le Source Comments The information that you have received may contain highly confidential and/or federally protected health information. This information has been disclosed to you from records protected by [facility]. The law prohibits you from [...] contact the sender immediately.[facility] ([facility]) Encounter Details Date Type Department Care Team (Late st Contact Info) Description 04/12/2005 Historical Note SVMG [employer] System Devyn Vásquez MD [address] [place] [address] [phone] Social History Tobacco Use Types Packs/Day Years [...] - [facility] [address] [facility] [address] [place] [phone] Brenda Clay MD [address] [facility] [address] [place] [address] 04/15/2026 10:00 AM EDT Office Visit [facility] + [facility] [address] [facility] [address] [place] [address] Sena Dominguez PA [address] [facility] [place] [address] documented as of this encounter Visit Diagnoses Not on filedocumented in this encounter Care Teams Internet Marketing Specialist Relationship Specialty Start Date End Date Meme Steel MD [address] [place] [address] 105 [place] [address] PCP - General Pediatrics 06/05/18 04/25/22 No Pcp, Pcp PCP - General 06/08/22 07/19/22 Guadalupe Mcbride MD PCP - General Family Medicine 07/20/22 11/01/23 Sena Dominguez PA [address] [place] [address] [place] [address] PCP - BRADY Physician Sr. Director Product Management 11/02/23 Levy Barry MD [address] [place] [address] [place] [address] PCP - General Family Medicine 12/20/23 documented as of this encounter
--- OUTSIDE RECORDS SUMMARY | 2025-07-28 14:41 | XMS_ITS | Encounter Summary ---
Author Organization [facility] work ([facility]) Address [address] [place] [address] Care Team Providers Care Duck Operator Name Role Phone Meme Steel MD Primary Care Provider [phone] No Pcp, Pcp Primary Care Provider Unavailabl Guadalupe Bardales MD Primary Care Provider [phone] Sena Dominguez Unavailable [phone] Levy Barry MD Primary Care Provider Unavailab le Source Comments The information that you have received may contain highly confidential and/or federally protected health information. This information has been disclosed to you from records protected by [facility]. The law prohibits you from [...] sender immediately.[facility] ([facility]) Encounter Details Date Type Department Care Team (Late st Contact Info) Description 10/01/2008 Historical Note [facility] DPSI System Devyn Vásquez MD [address] [place] [address] [phone] Social History Tobacco Use Types Packs/Day Years [...] LEATHA CARRILLO - [facility] [address] [facility] [address] [place] [phone] Brenda Clay MD [address] [facility] [address] [place] [address] 04/15/2026 10:00 AM EDT Office Visit [facility] [address] [facility] [address] [place] [address] Sena Dominguez PA [address] [facility] [place] [address] documented as of this encounter Visit Diagnoses Not on filedocumented in this encounter Care Teams Duck Operator Relationship Specialty Start Date End Date Meme Steel MD [address] [place] [address] 105 [place] [address] PCP - General Pediatrics 06/05/18 04/25/22 No Pcp, Pcp PCP - General 06/08/22 07/19/22 Guadalupe Mcbride MD PCP - General Family Medicine 07/20/22 11/01/23 Sena Dominguez PA [address] [place] [address] [place] [address] PCP - BRADY Physician Homeopathic Doctor 11/02/23 Levy Barry MD [address] [place] [address] [place] [address] PCP - General Family Medicine 12/20/23 documented as of this encounter
--- OUTSIDE RECORDS SUMMARY | 2025-07-28 14:41 | XMS_ITS | Encounter Summary ---
Author Organization [facility] work ([facility]) Address [address] [place] [address] Care Team Providers Care Communications Professional Name Role Phone Meme Steel MD Primary Care Provider [phone] No Pcp, Pcp Primary Care Provider Unavailabl Guadalupe Bardales MD Primary Care Provider [phone] Sena Dominguez Unavailable [phone] Levy Barry MD Primary Care Provider Unavailab le Source Comments The information that you have received may contain highly confidential and/or federally protected health information. This information has been disclosed to you from records protected by [facility]. The law prohibits you [...] please contact the sender immediately.[facility] ([facility]) Encounter Details Date Type Department Care Team (Late st Contact Info) Description 08/06/2009 Historical Note [facility] [employer] [facility] Devyn Vásquez MD [address] [place] [address] [phone] Social History Tobacco Use Types Packs/Day [...] - [facility] [address] [place] [phone] Brenda Clay MD [address] [facility] [address] [place] [address] 04/15/2026 10:00 AM EDT Office Visit [facility]HA [facility] + [facility] [address] [place] [address] Sena Dominguez PA [address] [facility] [place] [address] documented as of this encounter Visit Diagnoses Not on filedocumented in this encounter Care Teams Communications Professional Relationship Specialty Start Date End Date Meme Steel MD [address] [place] [address] [place] [address] PCP - General Pediatrics 06/05/18 04/25/22 No Pcp, Pcp PCP - General 06/08/22 07/19/22 Guadalupe Mcbride MD PCP - General Family Medicine 07/20/22 11/01/23 Sena Dominguez PA [address] [place] [address] [place] [address] PCP - BRADY Physician Service Attendant 11/02/23 Levy Barry MD [address] [place] [address] [place] [address] PCP - General Family Medicine 12/20/23 documented as of this encounter
--- OUTSIDE RECORDS SUMMARY | 2025-07-28 14:41 | XMS_ITS | Encounter Summary ---
Author Organization [facility] work ([facility]) Address [address] [place] [address] Care Team Providers Care Grass Farm Laborer Name Role Phone Meme Steel MD Primary Care Provider [phone] Pcp, Pcp Primary Care Provider Unavailabl Guadalupe Bardales MD Primary Care Provider [phone] Sena Dominguez Unavailable [phone] Levy Barry MD Primary Care Provider Unavailab le Source Comments The information that you have received may contain highly confidential and/or federally protected health information. This information has been disclosed to you from records protected by [facility]. The law prohibits you from making [...] error, please contact the sender immediately.[facility] ([facility]) Encounter Details Date Type Department Care Team (Late st Contact Info) Description 04/09/2009 Historical Note [facility] [employer] [facility] Devyn Vásquez MD [address] [place] [address] [phone] Social History Tobacco Use Types Packs/Day Years [...] Visit LEATHA CARRILLO - [facility] [address] [facility] [address] [place] [phone] Brenda Clay MD [address] [facility] [address] [place] [address] 04/15/2026 10:00 AM EDT Office Visit [facility] + [facility] [address] [facility] [address] [place] [address] Sena Dominguez PA [address] [facility] [place] [address] documented as of this encounter Visit Diagnoses Not on filedocumented in this encounter Care Teams Grass Farm Laborer Relationship Specialty Start Date End Date Meme Steel MD [address] [place] [address] 105 [place] [address] PCP - General Pediatrics 06/05/18 04/25/22 No Pcp, Pcp PCP - General 06/08/22 07/19/22 Guadalupe Mcbride MD PCP - General Family Medicine 07/20/22 11/01/23 Sena Dominguez PA [address] [place] [address] [place] [address] PCP - BRADY Physician Senior Software Project Manager 11/02/23 Levy Barry MD [address] [place] [address] [place] [address] PCP - General Family Medicine 12/20/23 documented as of this encounter
--- OUTSIDE RECORDS SUMMARY | 2025-07-28 14:41 | XMS_ITS | Encounter Summary ---
Author Organization [facility] work ([facility]) Address [address] [place] [address] Care Team Providers Care Manager Electrical Name Role Phone Meme Steel MD Primary Care Provider [phone] Pcp, Pcp Primary Care Provider Unavailabl Guadalupe Bardales MD Primary Care Provider [phone] Sena Dominguez Unavailable [phone] Levy Barry MD Primary Care Provider Unavailab le Source Comments The information that you have received may contain highly confidential and/or federally protected health information. This information has been disclosed to you from records protected by [facility]. The law prohibits you from making any [...] contact the sender immediately.[facility] ([facility]) Encounter Details Date Type Department Care Team (Late st Contact Info) Description 2004 Historical Note [facility] [employer] System Devyn Vásquez MD [address] [place] [address] [phone] Social History Tobacco Use Types Packs/Day Years [...] LEATHA CARRILLO - [facility] at [facility] [address] [facility] [address] [place] [phone] Brenda Clay MD [address] [facility] [address] [place] [address] 04/15/2026 10:00 AM EDT Office Visit [facility] + [facility] [address] [facility] [address] [place] [address] Sena Dominguez PA [address] [facility] [place] [address] documented as of this encounter Visit Diagnoses Not on filedocumented in this encounter Care Teams Manager Electrical Relationship Specialty Start Date End Date Meme Steel MD [address] [place] [address] 105 [place] [address] PCP - General Pediatrics 06/05/18 04/25/22 No Pcp, Pcp PCP - General 06/08/22 07/19/22 Guadalupe Mcbride MD PCP - General Family Medicine 07/20/22 11/01/23 Sena Dominguez PA [address] [place] [address] [place] [address] PCP - BRADY Physician Service Or Work Dispatcher Chief 11/02/23 Levy Barry MD [address] [place] [address] [place] [address] PCP - General Family Medicine 12/20/23 documented as of this encounter
--- OUTSIDE RECORDS SUMMARY | 2025-07-28 14:41 | XMS_ITS | Encounter Summary ---
Author Organization [facility] work ([facility]) Address [address] [place] [address] Care Team Providers Care Cd Storage And Materials Make Up Helper Name Role Phone Meme Steel MD Primary Care Provider [phone] Pcp, Pcp Primary Care Provider Unavailabl Guadalupe Bardales MD Primary Care Provider [phone] Sena Dominguez Unavailable [phone] Levy Barry MD Primary Care Provider Unavailab le Source Comments The information that you have received may contain highly confidential and/or federally protected health information. This information has been disclosed to you from records protected by [facility]. The law prohibits you [...] please contact the sender immediately.[facility] ([facility]) Encounter Details Date Type Department Care Team (Late st Contact Info) Description 03/10/2009 Historical Note [facility] [employer] System Devyn Vásquez MD [address] [place] [address] [phone] Social History Tobacco Use Types Packs/Day Years [...] LEATHA CARRILLO - [facility] [address] [facility] [address] [place] [phone] Brenda Clay MD [address] [facility] [address] [place] [address] 04/15/2026 10:00 AM EDT Office Visit [facility] [address] [facility] [address] [place] [address] Sena Dominguez PA [address] [facility] [place] [address] documented as of this encounter Visit Diagnoses Not on filedocumented in this encounter Care Teams Cd Storage And Materials Make Up Helper Relationship Specialty Start Date End Date Meme Steel MD [address] [place] [address] 105 [place] [address] PCP - General Pediatrics 06/05/18 04/25/22 No Pcp, Pcp PCP - General 06/08/22 07/19/22 Guadalupe Mcbride MD PCP - General Family Medicine 07/20/22 11/01/23 Sena Dominguez PA [address] [place] [address] [place] [address] PCP - BRADY Physician Senior Support Analyst 11/02/23 Levy Barry MD [address] [place] [address] [place] [address] PCP - General Family Medicine 12/20/23 documented as of this encounter
--- OUTSIDE RECORDS SUMMARY | 2025-07-28 14:41 | XMS_ITS | Encounter Summary ---
Author Organization [facility] work ([facility]) Address [address] [place] [address] Care Team Providers Care Antisqueak Worker Name Role Phone Meme Steel MD Primary Care Provider [phone] No Pcp, Pcp Primary Care Provider Unavailabl Guadalupe Bardales MD Primary Care Provider [phone] Sena Dominguez Unavailable [phone] Levy Barry MD Primary Care Provider Unavailab le Source Comments The information that you have received may contain highly confidential and/or federally protected health information. This information has been disclosed to you from records protected by [facility]. The law prohibits you [...] sender immediately.[facility] ([facility]) Encounter Details Date Type Department Care Team (Late st Contact Info) Description 10/05/2015 Historical Note [facility] [employer] System Devyn Vásquez MD [address] [place] [address] [phone] Social History Tobacco Use Types Packs/Day Years [...] CARRILLO - [facility] [address] [facility] [address] [place] [phone] Brenda Clay MD [address] [facility] [address] [place] [address] 04/15/2026 10:00 AM EDT Office Visit LEATHA [facility] at [facility] + [facility] [address] [facility] [address] [place] [address] Sena Dominguez PA [address] [facility] [place] [address] documented as of this encounter Visit Diagnoses Not on filedocumented in this encounter Care Teams Antisqueak Worker Relationship Specialty Start Date End Date Meme Steel MD [address] [place] [address] 105 [place] [address] PCP - General Pediatrics 06/05/18 04/25/22 No Pcp, Pcp PCP - General 06/08/22 07/19/22 Guadalupe Mcbride MD PCP - General Family Medicine 07/20/22 11/01/23 Sena Dominguez PA [address] [place] [address] [place] [address] PCP - BRADY Physician Transport Truck Driver 11/02/23 Levy Barry MD [address] [place] [address] [place] [address] PCP - General Family Medicine 12/20/23 documented as of this encounter
--- OUTSIDE RECORDS SUMMARY | 2025-07-28 14:41 | XMS_ITS | Encounter Summary ---
Author Organization [facility] work ([facility]) Address [address] [place] [address] Care Team Providers Care Corporate Officer Name Role Phone Meme Steel MD Primary Care Provider [phone] Pcp, Pcp Primary Care Provider Unavailabl Guadalupe Bardales MD Primary Care Provider [phone] Sena Dominguez Unavailable [phone] Levy Barry MD Primary Care Provider Unavailab le Source Comments The information that you have received may contain highly confidential and/or federally protected health information. This information has been disclosed to you from records protected by [facility]. The law prohibits you from making [...] error, please contact the sender immediately.[facility] ([facility]) Encounter Details Date Type Department Care Team (Late st Contact Info) Description 08/17/2008 Historical Note [facility] [employer] System Devyn Vásquez MD [address] [place] [address] [phone] Social History Tobacco Use Types Packs/Day Years [...] CARRILLO - [facility] [address] [facility] [address] [place] [phone] Brenda Clay MD [address] [facility] [address] [place] [address] 04/15/2026 10:00 AM EDT Office Visit LEATHA Primary [facility] at [facility] + [facility] [address] [facility] [address] [place] [address] Sena Dominguez PA [address] [facility] [place] [address] documented as of this encounter Visit Diagnoses Not on filedocumented in this encounter Care Teams Corporate Officer Relationship Specialty Start Date End Date Meme Steel MD [address] [place] [address] 105 [place] [address] PCP - General Pediatrics 06/05/18 04/25/22 No Pcp, Pcp PCP - General 06/08/22 07/19/22 Guadalupe Mcbride MD PCP - General Family Medicine 07/20/22 11/01/23 Sena Dominguez PA [address] [place] [address] [place] [address] PCP - BRADY Physician Corporate Intern 11/02/23 Levy Barry MD [address] [place] [address] [place] [address] PCP - General Family Medicine 12/20/23 documented as of this encounter
--- OUTSIDE RECORDS SUMMARY | 2025-07-28 14:41 | XMS_ITS | Encounter Summary ---
Author Organization [facility] work ([facility]) Address [address] [place] [address] Care Team Providers Care Grease Remover Name Role Phone Meme Steel MD Primary Care Provider [phone] No Pcp, Pcp Primary Care Provider Unavailabl Guadalupe Bardales MD Primary Care Provider [phone] Sena Dominguez Unavailable Levy Barry MD Primary Care Provider Unavailab le Source Comments The information that you have received may contain highly confidential and/or federally protected health information. This information has been disclosed to you from records protected by [facility]. The law prohibits you from [...] contact the sender immediately.[facility] ([facility]) Encounter Details Date Type Department Care Team (Late st Contact Info) Description 09/05/2008 Historical Note [facility] [employer] System Devyn Vásquez MD [address] [place] [address] [phone] Social History Tobacco Use Types Packs/Day Years [...] CARRILLO - [facility] [address] [facility] [address] [place] [phone] Brenda Clay MD [address] [facility] [address] [place] [address] 04/15/2026 10:00 AM EDT Office Visit LEATHA Primary [facility] at [facility] + [facility] [address] [facility] [address] [place] [address] Sena Dominguez PA [address] [facility] [place] [address] documented as of this encounter Visit Diagnoses Not on filedocumented in this encounter Care Teams Grease Remover Relationship Specialty Start Date End Date Meme Steel MD [address] [place] [address] 105 [place] [address] PCP - General Pediatrics 06/05/18 04/25/22 No Pcp, Pcp PCP - General 06/08/22 07/19/22 Guadalupe Mcbride MD PCP - General Family Medicine 07/20/22 11/01/23 Sena Dominguez PA [address] [place] [address] [place] [address] PCP - BRADY Physician Heating Unit Mechanic 11/02/23 Levy Barry MD [address] [place] [address] [place] [address] PCP - General Family Medicine 12/20/23 documented as of this encounter
--- OUTSIDE RECORDS SUMMARY | 2025-07-28 14:41 | XMS_ITS | Encounter Summary ---
Author Organization [facility] work ([facility]) Address [address] [place] [address] Care Team Providers Care Cash Application Clerk Name Role Phone Meme Steel MD Primary Care Provider No Pcp, Pcp Primary Care Provider Unavailabl Guadalupe Bardales MD Primary Care Provider [phone] Sena Dominguez Unavailable [phone] Levy Barry MD Primary Care Provider Unavailab le Source Comments The information that you have received may contain highly confidential and/or federally protected health information. This information has been disclosed to you from records protected by [facility]. The law prohibits you [...] please contact the sender immediately.[facility] ([facility]) Encounter Details Date Type Department Care Team (Late st Contact Info) Description 2004 Historical Note [facility] [employer] System Devyn Vásquez MD [address] [place] [address] [phone] Social History Tobacco Use Types Packs/Day Years [...] LEATHA CARRILLO - [facility] [address] [facility] [address] [place] [phone] Brenda Clay MD [address] [facility] [address] [place] [address] 04/15/2026 10:00 AM EDT Office Visit LEATHA Primary [facility] at [facility] + [facility] [address] [facility] [address] [place] [address] Sena Dominguez PA [address] [facility] [place] [address] documented as of this encounter Visit Diagnoses Not on filedocumented in this encounter Care Teams Cash Application Clerk Relationship Specialty Start Date End Date Meme Steel MD [address] [place] [address] 105 [place] [address] PCP - General Pediatrics 06/05/18 04/25/22 No Pcp, Pcp PCP - General 06/08/22 07/19/22 Guadalupe Mcbride MD PCP - General Family Medicine 07/20/22 11/01/23 Sena Dominguez PA [address] [place] [address] [place] [address] PCP - BRADY Physician Podiatry Doctor 11/02/23 Levy Barry MD [address] [place] [address] [place] [address] PCP - General Family Medicine 12/20/23 documented as of this encounter
--- OUTSIDE RECORDS SUMMARY | 2025-07-28 14:41 | XMS_ITS | Encounter Summary ---
Author Organization [facility] work ([facility]) Address [address] [place] [address] Care Team Providers Care Regional Owner Operator Truck Driver Name Role Phone Meme Steel MD Primary Care Provider [phone] No Pcp, Pcp Primary Care Provider Unavailabl Guadalupe Bardales MD Primary Care Provider [phone] Sena Dominguez Unavailable [phone] Levy Barry MD Primary Care Provider Unavailab le Source Comments The information that you have received may contain highly confidential and/or federally protected health information. This information has been disclosed to you from records protected by [facility]. The law prohibits you from [...] contact the sender immediately.[facility] ([facility]) Encounter Details Date Type Department Care Team (Late st Contact Info) Description 12/31/2015 Historical Note [facility] [employer] System Devyn Vásquez MD [address] [place] [address] [phone] Social History Tobacco Use Types Packs/Day Years [...] CARRILLO - [facility] [address] [facility] [address] [place] [phone] Brenda Clay MD [address] [facility] [address] [place] [address] 04/15/2026 10:00 AM EDT Office Visit LEATHA [facility] at [facility] + [facility] [address] [facility] [address] [place] [address] Sena Dominguez PA [address] [facility] [place] [address] documented as of this encounter Visit Diagnoses Not on filedocumented in this encounter Care Teams Regional Owner Operator Truck Driver Relationship Specialty Start Date End Date Meme Steel MD [address] [place] [address] 105 [place] [address] PCP - General Pediatrics 06/05/18 04/25/22 No Pcp, Pcp PCP - General 06/08/22 07/19/22 Guadalupe Mcbride MD PCP - General Family Medicine 07/20/22 11/01/23 Sena Dominguez PA [address] [place] [address] [place] [address] PCP - BRADY Physician Enologist 11/02/23 Levy Barry MD [address] [place] [address] [place] [address] PCP - General Family Medicine 12/20/23 documented as of this encounter
--- OUTSIDE RECORDS SUMMARY | 2025-07-28 14:41 | XMS_ITS | Encounter Summary ---
Author Organization [facility] work ([facility]) Address [address] [place] [address] Care Team Providers Care Pbx Manager Name Role Phone Meme Steel MD Primary Care Provider [phone] No Pcp, Pcp Primary Care Provider Unavailabl Guadalupe Bardales MD Primary Care Provider [phone] Sena Dominguez Unavailable [phone] Levy Barry MD Primary Care Provider Unavailab le Source Comments The information that you have received may contain highly confidential and/or federally protected health information. This information has been disclosed to you from records protected by [facility]. The law prohibits you from [...] contact the sender immediately.[facility] ([facility]) Encounter Details Date Type Department Care Team (Late st Contact Info) Description 2004 Historical Note [facility] [employer] System Devyn Vásquez MD [address] [place] [address] [phone] Social History Tobacco Use Types Packs/Day Years [...] CARRILLO - [facility] [address] [facility] [address] [place] [phone] Brenda Clay MD [address] [facility] [address] [place] [address] 04/15/2026 10:00 AM EDT Office Visit LEATHA Primary [facility] at [facility] + [facility] [address] [facility] [address] [place] [address] Sean Dominguez PA [address] [facility] [place] [address] documented as of this encounter Visit Diagnoses Not on filedocumented in this encounter Care Teams Pbx Manager Relationship Specialty Start Date End Date Meme Steel MD [address] [place] [address] [place] [address] PCP - General Pediatrics 06/05/18 04/25/22 No Pcp, Pcp PCP - General 06/08/22 07/19/22 Guadalupe Mcbride MD PCP - General Family Medicine 07/20/22 11/01/23 Sena Dominguez PA [address] [place] [address] [place] [address] PCP - BRADY Physician Manager Enterprise Content Management 11/02/23 Levy Barry MD [address] [place] [address] [place] [address] PCP - General Family Medicine 12/20/23 documented as of this encounter
--- OUTSIDE RECORDS SUMMARY | 2025-07-28 14:41 | XMS_ITS | Encounter Summary ---
Author Organization [facility] work ([facility]) Address [address] [place] [address] Care Team Providers Care Lead Presser Name Role Phone Meme Steel MD Primary Care Provider [phone] Pcp, Pcp Primary Care Provider Unavailabl Guadalupe Bardales MD Primary Care Provider [phone] Sena Dominguez Unavailable [phone] Levy Barry MD Primary Care Provider Unavailab le Source Comments The information that you have received may contain highly confidential and/or federally protected health information. This information has been disclosed to you from records protected by [facility]. The law prohibits you from [...] please contact the sender immediately.[facility] ([facility]) Encounter Details Date Type Department Care Team (Late st Contact Info) Description 10/02/2008 Historical Note [facility] Synappio System Devyn Vásquez MD [address] [place] [address] [phone] Social History Tobacco Use Types Packs/Day Years [...] LEATHA CARRILLO - [facility] at [facility] [address] [facility] [address] [place] [phone] Brenda Clay MD [address] [facility] [address] [place] [address] 04/15/2026 10:00 AM EDT Office Visit [facility] + [facility] [address] [facility] [address] [place] [address] Sena Dominguez PA [address] [facility] [place] [address] documented as of this encounter Visit Diagnoses Not on filedocumented in this encounter Care Teams Lead Presser Relationship Specialty Start Date End Date Meme Steel MD [address] [place] [address] 105 [place] [address] PCP - General Pediatrics 06/05/18 04/25/22 No Pcp, Pcp PCP - General 06/08/22 07/19/22 Guadalupe Mcbride MD PCP - General Family Medicine 07/20/22 11/01/23 Sena Dominguez PA [address] [place] [address] [place] [address] PCP - BRADY Physician Instructor Military Science 11/02/23 Levy Barry MD [address] [place] [address] [place] [address] PCP - General Family Medicine 12/20/23 documented as of this encounter
--- OUTSIDE RECORDS SUMMARY | 2025-07-28 14:41 | XMS_ITS | Encounter Summary ---
Author Organization [facility] work ([facility]) Address [address] [place] [address] Care Team Providers Care Automatic Washer Mechanic Name Role Phone Meme Steel MD Primary Care Provider [phone] Pcp, Pcp Primary Care Provider Unavailabl Guadalupe Bardales MD Primary Care Provider [phone] Sena Dominguez Unavailable [phone] Levy Barry MD Primary Care Provider Unavailab le Source Comments The information that you have received may contain highly confidential and/or federally protected health information. This information has been disclosed to you from records protected by [facility]. The law prohibits you from [...] the sender immediately.[facility] ([facility]) Encounter Details Date Type Department Care Team (Late st Contact Info) Description 01/07/2016 Historical Note [facility] PPTV System Devyn Vásquez MD [address] [place] [address] [phone] Social History Tobacco Use Types Packs/Day Years [...] LEATHA CARRILLO - [facility] [address] [facility] [address] [place] [phone] Brenda Clay MD [address] [facility] [address] [place] [address] 04/15/2026 10:00 AM EDT Office Visit [facility] at [facility] + [facility] [address] [facility] [address] [place] [address] Sena Dominguez PA [address] [facility] [place] [address] documented as of this encounter Visit Diagnoses Not on filedocumented in this encounter Care Teams Automatic Washer Mechanic Relationship Specialty Start Date End Date Meme Steel MD [address] [place] [address] 105 [place] [address] PCP - General Pediatrics 06/05/18 04/25/22 No Pcp, Pcp PCP - General 06/08/22 07/19/22 Guadalupe Mcbride MD PCP - General Family Medicine 07/20/22 11/01/23 Sena Dominguez PA [address] [place] [address] [place] [address] PCP - BRADY Physician Material Worker 11/02/23 Levy Barry MD [address] [place] [address] [place] [address] PCP - General Family Medicine 12/20/23 documented as of this encounter
--- OUTSIDE RECORDS SUMMARY | 2025-07-28 14:41 | XMS_ITS | Encounter Summary ---
Author Organization [facility] work ([facility]) Address [address] [place] [address] Care Team Providers Care Mental Health Aides Teacher Name Role Phone Meme Steel MD Primary Care Provider [phone] Pcp, Pcp Primary Care Provider Unavailabl Guadalupe Bardales MD Primary Care Provider [phone] Sena Dominguez Unavailable [phone] Levy Barry MD Primary Care Provider Unavailab le Source Comments The information that you have received may contain highly confidential and/or federally protected health information. This information has been disclosed to you from records protected by [facility]. The law prohibits you from [...] please contact the sender immediately.[facility] ([facility]) Encounter Details Date Type Department Care Team (Late st Contact Info) Description 04/09/2009 Historical Note [facility] Midfin Systems System Devyn Vásquez MD [address] [place] [address] [phone] Social History Tobacco Use Types Packs/Day Years [...] Office Visit LEATHA CARRILLO - [facility] [address] [facility] [address] [place] [phone] Brenda Clay MD [address] [facility] [address] [place] [address] 04/15/2026 10:00 AM EDT Office Visit [facility]HA [facility] at [facility] [address] [facility] [address] [place] [address] Sena Dominguez PA [address] [facility] [place] [address] documented as of this encounter Visit Diagnoses Not on filedocumented in this encounter Care Teams Mental Health Aides Teacher Relationship Specialty Start Date End Date Meme Steel MD [address] [place] [address] 105 [place] [address] PCP - General Pediatrics 06/05/18 04/25/22 No Pcp, Pcp PCP - General 06/08/22 07/19/22 Guadalupe Mcbride MD PCP - General Family Medicine 07/20/22 11/01/23 Sena Dominguez PA [address] [place] [address] [place] [address] PCP - BRADY Physician Senior Security Engineer 11/02/23 Levy Barry MD [address] [place] [address] [place] [address] PCP - General Family Medicine 12/20/23 documented as of this encounter
--- OUTSIDE RECORDS SUMMARY | 2025-07-28 14:41 | XMS_ITS | Encounter Summary ---
Author Organization [facility] work ([facility] Address [address] [place] [address] Care Team Providers Care [employer] Name Role Phone Meme Steel MD Primary Care Provider No Pcp, Pcp Primary Care Provider Unavailabl Guadalupe Bardales MD Primary Care Provider [phone] Sena Dominguez Unavailable [phone] Levy Barry MD Primary Care Provider Unavailab le Source Comments The information that you have received may contain highly confidential and/or federally protected health information. This information has been disclosed to you from records protected by [employer] [facility]. The law prohibits you [...] error, please contact the sender immediately.[facility] ([facility] Encounter Details Date Type Department Care Team (Late st Contact Info) Description 05/28/2015 Historical Note [facility] [employer] System Devyn Vásquez MD [address] [place] [address] [phone] Social History Tobacco Use Types Packs/Day Years [...] Visit LEATHA CARRILLO - [facility] [address] [facility] [address] [place] [phone] Brenda Clay MD [address] [facility] [address] [place] [address] 04/15/2026 10:00 AM EDT Office Visit [facility] at [facility] + [facility] [address] [facility] [address] [place] [address] Sena Dominguez PA [address] [facility] [place] [address] documented as of this encounter Visit Diagnoses Not on filedocumented in this encounter Care Teams [employer] Relationship Specialty Start Date End Date Meme Steel MD [address] [place] [address] 105 [place] [address] PCP - General Pediatrics 06/05/18 04/25/22 No Pcp, Pcp PCP - General 06/08/22 07/19/22 Guadalupe Mcbride MD PCP - General Family Medicine 07/20/22 11/01/23 Sena Dominguez PA [address] [place] [address] [place] [address] PCP - BRADY Physician Offal Trimmer 11/02/23 Levy Barry MD [address] [place] [address] [place] [address] PCP - General Family Medicine 12/20/23 documented as of this encounter
--- OUTSIDE RECORDS SUMMARY | 2025-07-28 14:41 | XMS_ITS | Encounter Summary ---
Author Organization [facility] work ([facility]) Address [address] [place] [address] Care Team Providers Care Financial Assistant Name Role Phone Meme Steel MD Primary Care Provider [phone] Pcp, Pcp Primary Care Provider Unavailabl Guadalupe Bardales MD Primary Care Provider [phone] Sena Dominguez Unavailable [phone] Levy Barry MD Primary Care Provider Unavailab le Source Comments The information that you have received may contain highly confidential and/or federally protected health information. This information has been disclosed to you from records protected by [facility]. The law prohibits you [...] contact the sender immediately.[facility] ([facility]) Encounter Details Date Type Department Care Team (Late st Contact Info) Description 09/15/2015 Historical Note [facility] Correlsense System Devyn Vásquez MD [address] [place] [address] [phone] Social History Tobacco Use Types Packs/Day Years [...] CARRILLO - [facility] [address] [facility] [address] [place] [phone] Brenda Clay MD [address] [facility] [address] [place] [address] 04/15/2026 10:00 AM EDT Office Visit LEATHA [facility] at [facility] + [facility] [address] [facility] [address] [place] [address] Sena Dominguez PA [address] [facility] [place] [address] documented as of this encounter Visit Diagnoses Not on filedocumented in this encounter Care Teams Financial Assistant Relationship Specialty Start Date End Date Meme Steel MD [address] [place] [address] 105 [place] [address] PCP - General Pediatrics 06/05/18 04/25/22 No Pcp, Pcp PCP - General 06/08/22 07/19/22 Guadalupe Mcbride MD PCP - General Family Medicine 07/20/22 11/01/23 Sena Dominguez PA [address] [place] [address] [place] [address] PCP - BRADY Physician Orchid Hand 11/02/23 Levy Barry MD [address] [place] [address] [place] [address] PCP - General Family Medicine 12/20/23 documented as of this encounter
--- OUTSIDE RECORDS SUMMARY | 2025-07-28 14:42 | XMS_ITS | Encounter Summary ---
Author Organization [facility] work ([facility]) Address [address] [place] [address] Care Team Providers Care Group Home Manager Name Role Phone Meme Steel MD Primary Care Provider [phone] No Pcp, Pcp Primary Care Provider Unavailabl Guadalupe Bardales MD Primary Care Provider [phone] Sena Dominguez Unavailable [phone] Levy Barry MD Primary Care Provider Unavailab le Source Comments The information that you have received may contain highly confidential and/or federally protected health information. This information has been disclosed to you from records protected by [facility]. The law prohibits you [...] error, please contact the sender immediately.[facility] ([facility]) Encounter Details Date Type Department Care Team (Late st Contact Info) Description 01/04/2008 Historical Note [facility] Betable System Devyn Vásquez MD [address] [place] [address] [phone] Social History Tobacco Use Types Packs/Day Years [...] LEATHA CARRILLO - [facility] [address] [facility] [address] [place] [phone] Brenda Clay MD [address] [facility] [address] [place] [address] 04/15/2026 10:00 AM EDT Office Visit [facility]HA [facility] at [facility] + [facility] [address] [facility] [address] [place] [address] Sena Dominguez PA [address] [facility] [place] [address] documented as of this encounter Visit Diagnoses Not on filedocumented in this encounter Care Teams Group Home Manager Relationship Specialty Start Date End Date Meme Steel MD [address] [place] [address] 105 [place] [address] PCP - General Pediatrics 06/05/18 04/25/22 No Pcp, Pcp PCP - General 06/08/22 07/19/22 Guadalupe Mcbride MD PCP - General Family Medicine 07/20/22 11/01/23 Sena Dominguez PA [address] [place] [address] [place] [address] PCP - BRADY Physician Manager [employer] 11/02/23 Levy Barry MD [address] [place] [address] [place] [address] PCP - General Family Medicine 12/20/23 documented as of this encounter
--- OUTSIDE RECORDS SUMMARY | 2025-07-28 14:42 | XMS_ITS | Encounter Summary ---
Author Organization [facility] work ([facility]) Address [address] [place] [address] Care Team Providers Care Hospitality Services Manager Name Role Phone Meme Steel MD Primary Care Provider [phone] Pcp, Pcp Primary Care Provider Unavailabl Guadalupe Bardales MD Primary Care Provider [phone] Sena Dominguez Unavailable [phone] Levy Barry MD Primary Care Provider Unavailab le Source Comments The information that you have received may contain highly confidential and/or federally protected health information. This information has been disclosed to you from records protected by [employer]. The law prohibits you from making [...] the sender immediately.[facility] ([facility]) Encounter Details Date Type Department Care Team (Late st Contact Info) Description 06/18/2014 Historical Note [facility] Eloxx System Devyn Vásquez MD [address] [place] [address] [phone] Social History Tobacco Use Types Packs/Day Years [...] CARRILLO - [facility] at [facility] [address] [facility] [address] [place] [phone] Brenda Clay MD [address] [facility] [address] [place] [address] 04/15/2026 10:00 AM EDT Office Visit [facility]HA [facility] at [facility] + [facility] [address] [facility] [address] [place] [address] Sena Dominguez PA [address] [facility] [place] [address] documented as of this encounter Visit Diagnoses Not on filedocumented in this encounter Care Teams Hospitality Services Manager Relationship Specialty Start Date End Date Meme Steel MD [address] [place] [address] 105 [place] [address] PCP - General Pediatrics 06/05/18 04/25/22 No Pcp, Pcp PCP - General 06/08/22 07/19/22 Guadalupe Mcbride MD PCP - General Family Medicine 07/20/22 11/01/23 Sena Dominguez PA [address] [place] [address] [place] [address] PCP - BRADY Physician Consumer Educator 11/02/23 Levy Barry MD [address] [place] [address] [place] [address] PCP - General Family Medicine 12/20/23 documented as of this encounter
--- OUTSIDE RECORDS SUMMARY | 2025-07-28 14:42 | XMS_ITS | Encounter Summary ---
Author Organization [facility] work ([facility]) Address [address] [place] [address] Care Team Providers Care Associate Technician Name Role Phone Meme Steel MD Primary Care Provider [phone] No Pcp, Pcp Primary Care Provider Unavailabl Guadalupe Bardales MD Primary Care Provider [phone] Sena Dominguez Unavailable Levy Barry MD Primary Care Provider Unavailab le Source Comments The information that you have received may contain highly confidential and/or federally protected health information. This information has been disclosed to you from records protected by [facility]. The law prohibits you from [...] contact the sender immediately.[facility] ([facility]) Encounter Details Date Type Department Care Team (Late st Contact Info) Description 08/21/2014 Historical Note [facility] [employer] System Devyn Vásquez MD [address] [place] [address] [phone] Social History Tobacco Use Types Packs/Day Years [...] LEATHA CARRILLO - [facility] [address] [facility] [address] [place] [phone] Brenda Clay MD [address] [facility] [address] [place] [address] 04/15/2026 10:00 AM EDT Office Visit [facility]HA [facility] at [facility] + [facility] [address] [facility] [address] [place] [address] Sena Dominguez PA [address] [facility] [place] [address] documented as of this encounter Visit Diagnoses Not on filedocumented in this encounter Care Teams Associate Technician Relationship Specialty Start Date End Date Meme Steel MD [address] [place] [address] 105 [place] [address] PCP - General Pediatrics 06/05/18 04/25/22 No Pcp, Pcp PCP - General 06/08/22 07/19/22 Guadalupe Mcbride MD PCP - General Family Medicine 07/20/22 11/01/23 Sena Dominguez PA [address] [place] [address] [place] [address] PCP - BRADY Physician Mop Machine Operator 11/02/23 Levy Barry MD [address] [place] [address] [place] [address] PCP - General Family Medicine 12/20/23 documented as of this encounter
--- OUTSIDE RECORDS SUMMARY | 2025-07-28 14:42 | XMS_ITS | Encounter Summary ---
Author Organization [facility] work ([facility]) Address [address] [place] [address] Care Team Providers Care Supervisor Electronic Testing Name Role Phone Meme Steel MD Primary Care Provider No Pcp, Pcp Primary Care Provider Unavailabl Guadalupe Bardales MD Primary Care Provider [phone] Sena Dominguez Unavailable [phone] Levy Barry MD Primary Care Provider Unavailab le Source Comments The information that you have received may contain highly confidential and/or federally protected health information. This information has been disclosed to you from records protected by [facility]. The law prohibits you from [...] contact the sender immediately.[facility] ([facility]) Encounter Details Date Type Department Care Team (Late st Contact Info) Description 11/26/2007 Historical Note [facility] Oppa System Devyn Vásquez MD [address] [place] [address] [phone] Social History Tobacco Use Types Packs/Day Years [...] LEATHA CARRILLO - [facility] [address] [facility] [address] [place] [phone] Brenda Clay MD [address] [facility] [address] [place] [address] 04/15/2026 10:00 AM EDT Office Visit LEATHA [facility] at [facility] + [facility] [address] [facility] [address] [place] [address] Sena Dominguez PA [address] [facility] [place] [address] documented as of this encounter Visit Diagnoses Not on filedocumented in this encounter Care Teams Supervisor Electronic Testing Relationship Specialty Start Date End Date Meme Steel MD [address] [place] [address] 105 [place] [address] PCP - General Pediatrics 06/05/18 04/25/22 No Pcp, Pcp PCP - General 06/08/22 07/19/22 Guadalupe Mcbride MD PCP - General Family Medicine 07/20/22 11/01/23 Sena Dominguez PA [address] [place] [address] [place] [address] PCP - BRADY Physician Lean Manufacturing Leader 11/02/23 Levy Barry MD [address] [place] [address] [place] [address] PCP - General Family Medicine 12/20/23 documented as of this encounter
--- OUTSIDE RECORDS SUMMARY | 2025-07-28 14:42 | XMS_ITS | Encounter Summary ---
Author Organization [facility] work ([facility]) Address [address] [facility] [address] [place] [address] Care Team Providers Care Animal Control Supervisor Name Role Phone Meme Steel MD Primary Care Provider [phone] Pcp, Pcp Primary Care Provider Unavailabl Guadalupe Bardales MD Primary Care Provider [phone] Sena Dominguez Unavailable [phone] Levy Barry MD Primary Care Provider Unavailab le Source Comments The information that you have received may contain highly confidential and/or federally protected health information. This information has been disclosed to you from records protected by [facility]. The law prohibits [...] contact the sender immediately.[facility] ([facility]) Encounter Details Date Type Department Care Team (Late st Contact Info) Description 01/04/2008 Historical Note [facility] BiOWiSH System Devyn Vásquez MD [address] [place] [address] [phone] Social History Tobacco Use Types Packs/Day Years [...] CARRILLO - [facility] at [facility] [address] [facility] [address] [place] [phone] Brenda Clay MD [address] [facility] [address] [place] [address] 04/15/2026 10:00 AM EDT Office Visit [facility]HA [facility] [address] [facility] [address] [place] [address] Sena Dominguez PA [address] [facility] [place] [address] documented as of this encounter Visit Diagnoses Not on filedocumented in this encounter Care Teams Animal Control Supervisor Relationship Specialty Start Date End Date Meme Steel MD [address] [place] [address] 105 [place] [address] PCP - General Pediatrics 06/05/18 04/25/22 No Pcp, Pcp PCP - General 06/08/22 07/19/22 Guadalupe Mcbride MD PCP - General Family Medicine 07/20/22 11/01/23 Sena Dominguez PA [address] [place] [address] [place] [address] PCP - BRADY Physician Lunchroom Mother 11/02/23 Levy Barry MD [address] [place] [address] [place] [address] PCP - General Family Medicine 12/20/23 documented as of this encounter
--- OUTSIDE RECORDS SUMMARY | 2025-07-28 14:42 | XMS_ITS | Encounter Summary ---
Author Organization [facility] work ([facility]) Address [address] [facility] [address] [place] [address] Care Team Providers Care Diesel Tractor Operator Name Role Phone Meme Steel MD Primary Care Provider [phone] No Pcp, Pcp Primary Care Provider Unavailabl Guadalupe Bardales MD Primary Care Provider [phone] Sena Dominguez Unavailable [phone] Levy Barry MD Primary Care Provider Unavailab le Source Comments The information that you have received may contain highly confidential and/or federally protected health information. This information has been disclosed to you from records protected by [facility]. The law prohibits you from [...] sender immediately.[facility] ([facility]) Encounter Details Date Type Department Care Team (Late st Contact Info) Description 09/22/2014 Historical Note [facility] Banno System Devyn Vásquez MD [address] [place] [address] [id number] Social History Tobacco Use Types Packs/Day Years [...] Visit LEATHA CARRILLO - [facility] [address] [facility] [address] [place] [phone] Brenda Clay MD [address] [facility] [address] [place] [address] 04/15/2026 10:00 AM EDT Office Visit [facility]HA [facility] at [facility] + [facility] [address] [facility] [address] [place] [address] Sena Dominguez PA [address] [facility] [place] [address] documented as of this encounter Visit Diagnoses Not on filedocumented in this encounter Care Teams Diesel Tractor Operator Relationship Specialty Start Date End Date Meme Steel MD [address] [place] [address] [place] [address] PCP - General Pediatrics 06/05/18 04/25/22 No Pcp, Pcp PCP - General 06/08/22 07/19/22 Guadalupe Mcbride MD PCP - General Family Medicine 07/20/22 11/01/23 Sena Dominguez PA [address] [place] [address] [place] [address] PCP - BRADY Physician Finish Production Manager 11/02/23 Levy Barry MD [address] [place] [address] [place] [address] PCP - General Family Medicine 12/20/23 documented as of this encounter
--- OUTSIDE RECORDS SUMMARY | 2025-07-28 14:42 | XMS_ITS | Encounter Summary ---
Author Organization [facility] work ([facility]) Address [address] [facility] [address] [place] [address] Care Team Providers Care Credit Risk Analyst Name Role Phone Meme Steel MD Primary Care Provider [phone] Pcp, Pcp Primary Care Provider Unavailabl Guadalupe Bardales MD Primary Care Provider [phone] Sena Dominguez Unavailable [phone] Levy Barry MD Primary Care Provider Unavailab le Source Comments The information that you have received may contain highly confidential and/or federally protected health information. This information has been disclosed to you from records protected by [facility]. The law prohibits you from making [...] sender immediately.[facility] ([facility]) Encounter Details Date Type Department Care Team (Late st Contact Info) Description 04/08/2009 Historical Note [facility] RediLearning System Devyn Vásquez MD [address] [place] [address] [phone] Social History Tobacco Use Types Packs/Day Years [...] Visit LEATHA CARRILLO - [facility] [address] [facility] [address] [place] [phone] Brenda Clay MD [address] [facility] [address] [place] [address] 04/15/2026 10:00 AM EDT Office Visit LEATHA [facility] at [facility] + [facility] [address] [facility] [address] [place] [address] Sena Dominguez PA [address] [facility] [place] [address] documented as of this encounter Visit Diagnoses Not on filedocumented in this encounter Care Teams Credit Risk Analyst Relationship Specialty Start Date End Date Meme Steel MD [address] [place] [address] 105 [place] [address] PCP - General Pediatrics 06/05/18 04/25/22 No Pcp, Pcp PCP - General 06/08/22 07/19/22 Guadalupe Mcbride MD PCP - General Family Medicine 07/20/22 11/01/23 Sena Dominguez PA [address] [place] [address] [place] [address] PCP - BRADY Physician Retreader 11/02/23 Levy Barry MD [address] [place] [address] [place] [address] PCP - General Family Medicine 12/20/23 documented as of this encounter
--- OUTSIDE RECORDS SUMMARY | 2025-07-28 14:42 | XMS_ITS | Encounter Summary ---
Author Organization [facility] work ([facility]) Address [address] [place] [address] Care Team Providers Care Explosive Ordnance Disposal Manager Name Role Phone Meme Steel MD Primary Care Provider [phone] Pcp, Pcp Primary Care Provider Unavailabl Guadalupe Bardales MD Primary Care Provider [phone] Sena Dominguez Unavailable [phone] Levy Barry MD Primary Care Provider Unavailab le Source Comments The information that you have received may contain highly confidential and/or federally protected health information. This information has been disclosed to you from records protected by [facility]. The law prohibits you [...] please contact the sender immediately.[facility] ([facility]) Encounter Details Date Type Department Care Team (Late st Contact Info) Description 04/10/2009 Historical Note [facility] Bgifty System Devyn Vásquez MD [address] [place] [address] [phone] Social History Tobacco Use Types Packs/Day Years [...] CARRILLO - [facility] [address] [facility] [address] [place] [phone] Brenda Clay MD [address] [facility] [address] [place] [address] 04/15/2026 10:00 AM EDT Office Visit LE[facility]HA [facility] at [facility] [address] [facility] [address] [place] [address] Sena Dominguez PA [address] [facility] [place] [address] documented as of this encounter Visit Diagnoses Not on filedocumented in this encounter Care Teams Explosive Ordnance Disposal Manager Relationship Specialty Start Date End Date Meme Steel MD [address] [place] [address] 105 [place] [address] PCP - General Pediatrics 06/05/18 04/25/22 No Pcp, Pcp PCP - General 06/08/22 07/19/22 Guadalupe Mcbride MD PCP - General Family Medicine 07/20/22 11/01/23 Sena Dominguez PA [address] [place] [address] [place] [address] PCP - BRADY Physician Deck Builder 11/02/23 Levy Barry MD [address] [place] [address] [place] [address] PCP - General Family Medicine 12/20/23 documented as of this encounter
--- OUTSIDE RECORDS SUMMARY | 2025-07-28 14:42 | XMS_ITS | Encounter Summary ---
Author Organization [facility] work ([facility]) Address [address] [facility] [address] [facility] [address] [place] [address] Care Team Providers Care Licensed Dispensing Optician Name Role Phone Meme Steel MD Primary Care Provider [phone] No Pcp, Pcp Primary Care Provider Unavailabl Guadalupe Bardales MD Primary Care Provider [phone] Sena Dominguez Unavailable Levy Barry MD Primary Care Provider Unavailab le Source Comments The information that you have received may contain highly confidential and/or federally protected health information. This information has been disclosed to you from records protected by [facility]. The law [...] contact the sender immediately.[facility] ([facility]) Encounter Details Date Type Department Care Team (Late st Contact Info) Description 12/27/2007 Historical Note [facility] VISENZE System Devyn Vásquez MD [address] [place] [address] [phone] Social History Tobacco Use Types Packs/Day Years [...] - [facility] [address] [facility] [address] [place] [phone] Brenda Clay MD [address] [facility] [address] [place] [address] 04/15/2026 10:00 AM EDT Office Visit LE[facility]HA [facility] at [facility] + [facility] [address] [facility] [address] [place] [address] Sena Dominguez PA [address] [facility] [place] [address] documented as of this encounter Visit Diagnoses Not on filedocumented in this encounter Care Teams Licensed Dispensing Optician Relationship Specialty Start Date End Date Meme Steel MD [address] [place] [address] 105 [place] [address] PCP - General Pediatrics 06/05/18 04/25/22 No Pcp, Pcp PCP - General 06/08/22 07/19/22 Guadalupe Mcbride MD PCP - General Family Medicine 07/20/22 11/01/23 Sena Dominguez PA [address] [place] [address] [place] [address] PCP - BRADY Physician Lemon Picker 11/02/23 Levy Barry MD [address] [place] [address] [place] [address] PCP - General Family Medicine 12/20/23 documented as of this encounter
--- OUTSIDE RECORDS SUMMARY | 2025-07-28 14:42 | XMS_ITS | Encounter Summary ---
Author Organization [facility] work ([facility]) Address [address] [facility] [address] [place] [address] Care Team Providers Care Facility Assistant Name Role Phone Meme Steel MD Primary Care Provider No Pcp, Pcp Primary Care Provider Unavailabl Guadalupe Bardales MD Primary Care Provider [phone] Sena Dominguez Unavailable [phone] Levy Barry MD Primary Care Provider Unavailab le Source Comments The information that you have received may contain highly confidential and/or federally protected health information. This information has been disclosed to you from records protected by [facility]. The law prohibits you [...] the sender immediately.[facility] ([facility]) Encounter Details Date Type Department Care Team (Late st Contact Info) Description 03/02/2005 Historical Note [facility] [employer] [place] System Devyn Vásquez MD [address] [place] [address] [phone] Social History Tobacco Use Types Packs/Day Years [...] Visit LEATHA CARRILLO - [facility] [address] [facility] [address] [place] [phone] Brenda Clay MD [address] [facility] [address] [place] [address] 04/15/2026 10:00 AM EDT Office Visit [facility] at [facility] + [facility] [address] [facility] [address] [place] [address] Sena Dominguez PA [address] [facility] [place] [address] documented as of this encounter Visit Diagnoses Not on filedocumented in this encounter Care Teams Facility Assistant Relationship Specialty Start Date End Date Meme Steel MD [address] [place] [address] 105 [place] [address] PCP - General Pediatrics 06/05/18 04/25/22 No Pcp, Pcp PCP - General 06/08/22 07/19/22 Guadalupe Mcbride MD PCP - General Family Medicine 07/20/22 11/01/23 Sena Dominguez PA [address] [place] [address] [place] [address] PCP - BRADY Physician Phys Asst 11/02/23 Levy Barry MD [address] [place] [address] [place] [address] PCP - General Family Medicine 12/20/23 documented as of this encounter
--- OUTSIDE RECORDS SUMMARY | 2025-07-28 14:42 | XMS_ITS | Encounter Summary ---
Author Organization [facility] work ([facility]) Address [address] [place] [address] Care Team Providers Care Quiller Runner Name Role Phone Meme Steel MD Primary Care Provider [phone] Pcp, Pcp Primary Care Provider Unavailabl Guadalupe Bardales MD Primary Care Provider [phone] Sena Dominguez Unavailable [phone] Levy Barry MD Primary Care Provider Unavailab le Source Comments The information that you have received may contain highly confidential and/or federally protected health information. This information has been disclosed to you from records protected by [facility]. The law prohibits [...] Contact Info) Description 11/18/2014 Historical Note [facility] Propertybase System Devyn Vásquez MD [address] [place] [address] [phone] Social History Tobacco Use Types Packs/Day Years [...] LEATHA CARRILLO - [facility] [address] [facility] [address] [place] [phone] Brenda Clay MD [address] [facility] [address] [place] [address] 04/15/2026 10:00 AM EDT Office Visit [facility]HA [facility] at [facility] + [facility] [address] [facility] [address] [place] [address] Sena Dominguez PA [address] [facility] [place] [address] documented as of this encounter Visit Diagnoses Not on filedocumented in this encounter Care Teams Quiller Runner Relationship Specialty Start Date End Date Meme Steel MD [address] [place] [address] 105 [place] [address] PCP - General Pediatrics 06/05/18 04/25/22 No Pcp, Pcp PCP - General 06/08/22 07/19/22 Guadalupe Mcbride MD PCP - General Family Medicine 07/20/22 11/01/23 Sena Dominguez PA [address] [place] [address] [place] [address] PCP - BRADY Physician Corporate Human Resources Manager 11/02/23 Levy Barry MD [address] [place] [address] [place] [address] PCP - General Family Medicine 12/20/23 documented as of this encounter
--- OUTSIDE RECORDS SUMMARY | 2025-07-28 14:42 | XMS_ITS | Encounter Summary ---
Author Organization [facility] work ([facility]) Address [address] [facility] [address] [place] [address] Care Team Providers Care Manager Office Name Role Phone Meme Steel MD Primary Care Provider [phone] Pcp, Pcp Primary Care Provider Unavailabl Guadalupe Bardales MD Primary Care Provider [phone] Sena Dominguez Unavailable [phone] Levy Barry MD Primary Care Provider Unavailab le Source Comments The information that you have received may contain highly confidential and/or federally protected health information. This information has been disclosed to you from records protected by [employer]. The [...] contact the sender immediately.[facility] ([facility]) Encounter Details Date Type Department Care Team (Late st Contact Info) Description 01/01/2008 Historical Note [facility] EvaluAgent System Devyn Vásquez MD [address] [place] [address] [phone] Social History Tobacco Use Types Packs/Day Years [...] CARRILLO - [facility] [address] [facility] [address] [place] [phone] Brenda Clay MD [address] [facility] [address] [place] [phone] 04/15/2026 10:00 AM EDT Office Visit [facility]HA [facility] + [facility] [address] [facility] [address] [place] [address] Sena Dominguez PA [address] [facility] [place] [address] documented as of this encounter Visit Diagnoses Not on filedocumented in this encounter Care Teams Manager Office Relationship Specialty Start Date End Date Meme Steel MD [address] [place] [address] 105 [place] [address] PCP - General Pediatrics 06/05/18 04/25/22 No Pcp, Pcp PCP - General 06/08/22 07/19/22 Guadalupe Mcbride MD PCP - General Family Medicine 07/20/22 11/01/23 Sena Dominguez PA [address] [place] [address] [place] [address] PCP - BRADY Physician Glove Cleaner 11/02/23 Levy Barry MD [address] [place] [address] [place] [address] PCP - General Family Medicine 12/20/23 documented as of this encounter
--- OUTSIDE RECORDS SUMMARY | 2025-07-28 14:42 | XMS_ITS | Encounter Summary ---
Author Organization [facility] work ([facility]) Address [address] [facility] [address] [place] [address] Care Team Providers Care Summer Child Caregiver Name Role Phone Meme Steel MD Primary Care Provider [phone] Pcp, Pcp Primary Care Provider Unavailabl Guadalupe Bardales MD Primary Care Provider [phone] Sena Dominguez Unavailable [phone] Levy Barry MD Primary Care Provider Unavailab le Source Comments The information that you have received may contain highly confidential and/or federally protected health information. This information has been disclosed to you from records protected by [facility]. The law prohibits you from [...] error, please contact the sender immediately.[facility] ([facility]) Encounter Details Date Type Department Care Team (Late st Contact Info) Description 09/22/2014 Historical Note [facility] Proterra System Devyn Vásquez MD [address] [place] [address] [phone] Social History Tobacco Use Types Packs/Day Years [...] LEATHA CARRILLO - [facility] [address] [facility] [address] [place] [phone] Brenda Clay MD [address] [facility] [address] [place] [address] 04/15/2026 10:00 AM EDT Office Visit LEATHA Primary [facility] at [facility] + [facility] [address] [facility] [address] [place] [address] Sena Dominguez PA [address] [facility] [place] [address] documented as of this encounter Visit Diagnoses Not on filedocumented in this encounter Care Teams Summer Child Caregiver Relationship Specialty Start Date End Date Meme Steel MD [address] [place] [address] 105 [place] [address] PCP - General Pediatrics 06/05/18 04/25/22 No Pcp, Pcp PCP - General 06/08/22 07/19/22 Guadalupe Mcbride MD PCP - General Family Medicine 07/20/22 11/01/23 Sena Dominguez PA [address] [place] [address] [place] [address] PCP - BRADY Physician [facility] 11/02/23 Levy Barry MD [address] [place] [address] [place] [address] PCP - General Family Medicine 12/20/23 documented as of this encounter
--- OUTSIDE RECORDS SUMMARY | 2025-07-28 14:42 | XMS_ITS | Encounter Summary ---
Author Organization [facility] work ([facility]) Address [address] [place] [address] Care Team Providers Care Bending Roll Hand Name Role Phone Meme Steel MD Primary Care Provider [phone] No Pcp, Pcp Primary Care Provider Unavailabl Guadalupe Bardales MD Primary Care Provider [phone] Sena Dominguez Unavailable [phone] Levy Barry MD Primary Care Provider Unavailab le Source Comments The information that you have received may contain highly confidential and/or federally protected health information. This information has been disclosed to you from records protected by [facility]. The law prohibits you [...] please contact the sender immediately.[facility] ([facility]) Encounter Details Date Type Department Care Team (Late st Contact Info) Description 06/14/2008 Historical Note [facility] Conclusive Analytics System Devyn Vásquez MD [address] [place] [address] [phone] Social History Tobacco Use Types Packs/Day Years [...] LEATHA CARRILLO - [facility] [address] [facility] [address] [place] [phone] Brenda Clay MD [address] [facility] [address] [place] [phone] 04/15/2026 10:00 AM EDT Office Visit [facility]HA [facility] + [facility] [address] [facility] [address] [place] [address] Sena Dominguez PA [address] [facility] [place] [address] documented as of this encounter Visit Diagnoses Not on filedocumented in this encounter Care Teams Bending Roll Hand Relationship Specialty Start Date End Date Meme Steel MD [address] [place] [address] 105 [place] [address] PCP - General Pediatrics 06/05/18 04/25/22 No Pcp, Pcp PCP - General 06/08/22 07/19/22 Guadalupe Mcbride MD PCP - General Family Medicine 07/20/22 11/01/23 Sena Dominguez PA [address] [place] [address] [place] [address] PCP - BRADY Physician Diaper Folder 11/02/23 Levy Barry MD [address] [place] [address] [place] [address] PCP - General Family Medicine 12/20/23 documented as of this encounter
--- OUTSIDE RECORDS SUMMARY | 2025-07-28 14:42 | XMS_ITS | Encounter Summary ---
Author Organization [facility] work ([facility]) Address [address] [place] [address] Care Team Providers Care Cardiac Rehabilitation Specialist Name Role Phone Meme Steel MD Primary Care Provider [phone] No Pcp, Pcp Primary Care Provider Unavailabl Guadalupe Bardales MD Primary Care Provider [phone] Sena Dominguez Unavailable [phone] Levy Barry MD Primary Care Provider Unavailab le Source Comments The information that you have received may contain highly confidential and/or federally protected health information. This information has been disclosed to you from records protected by [facility]. The law prohibits you [...] please contact the sender immediately.[facility] ([facility]) Encounter Details Date Type Department Care Team (Late st Contact Info) Description 10/02/2007 Historical Note [facility] RecordSled System Devyn Vásquez MD [address] [place] [address] [phone] Social History Tobacco Use Types Packs/Day Years [...] LEATHA CARRILLO - [facility] [address] [facility] [address] [place] [phone] Brenda Clay MD [address] [facility] [address] [place] [phone] 04/15/2026 10:00 AM EDT Office Visit LE[facility]HA [facility] at [facility] + [facility] [address] [facility] [address] [place] [address] Sena Dominguez PA [address] [facility] [place] [address] documented as of this encounter Visit Diagnoses Not on filedocumented in this encounter Care Teams Cardiac Rehabilitation Specialist Relationship Specialty Start Date End Date Meme Steel MD [address] [place] [address] 105 [place] [address] PCP - General Pediatrics 06/05/18 04/25/22 No Pcp, Pcp PCP - General 06/08/22 07/19/22 Guadalupe Mcbride MD PCP - General Family Medicine 07/20/22 11/01/23 Sena Dominguez PA [address] [place] [address] [place] [address] PCP - BRADY Physician Papier Mache Molder 11/02/23 Levy Barry MD [address] [place] [address] [place] [address] PCP - General Family Medicine 12/20/23 documented as of this encounter
--- OUTSIDE RECORDS SUMMARY | 2025-07-28 14:42 | XMS_ITS | Encounter Summary ---
Author Organization [facility] work ([facility]) Address [address] [place] [address] Care Team Providers Care Lithographic Etcher Name Role Phone Meme Steel MD Primary Care Provider [phone] Pcp, Pcp Primary Care Provider Unavailabl Guadalupe Bardales MD Primary Care Provider [phone] Sena Dominguez Unavailable [phone] Levy Barry MD Primary Care Provider Unavailab le Source Comments The information that you have received may contain highly confidential and/or federally protected health information. This information has been disclosed to you from records protected by [facility]. The law prohibits you [...] please contact the sender immediately.[facility] ([facility]) Encounter Details Date Type Department Care Team (Late st Contact Info) Description 08/12/2008 Historical Note [facility] Perfect Audience System Devyn Vásquez MD [address] [place] [address] [phone] Social History Tobacco Use Types Packs/Day Years [...] CARRILLO - [facility] at [facility] [address] [place] [phone] Brenda Clay MD [address] [facility] [address] [place] [phone] 04/15/2026 10:00 AM EDT Office Visit LEATHA [facility] at [facility] + [facility] [address] [place] [phone] Sena Dominguez PA [address] [place] [address] documented as of this encounter Visit Diagnoses Not on filedocumented in this encounter Care Teams Lithographic Etcher Relationship Specialty Start Date End Date Meme Steel MD [address] [place] [address] [place] [address] PCP - General Pediatrics 06/05/18 04/25/22 No Pcp, Pcp PCP - General 06/08/22 07/19/22 Guadalupe Mcbride MD PCP - General Family Medicine 07/20/22 11/01/23 Sena Dominguez PA [address] [place] [address] [place] [address] PCP - BRADY Physician Roll Or Tape Edge Machine Operator 11/02/23 Levy Barry MD [address] [place] [address] [place] [address] PCP - General Family Medicine 12/20/23 documented as of this encounter
--- OUTSIDE RECORDS SUMMARY | 2025-07-28 14:42 | XMS_ITS | Encounter Summary ---
Author Organization [facility] work ([facility]) Address [address] [place] [address] Care Team Providers Care Combination Man Name Role Phone Meme Steel MD Primary Care Provider [phone] Pcp, Pcp Primary Care Provider Unavailabl Guadalupe Bardales MD Primary Care Provider [phone] Sena Dominguez Unavailable [phone] Levy Barry MD Primary Care Provider Unavailab le Source Comments The information that you have received may contain highly confidential and/or federally protected health information. This information has been disclosed to you from records protected by [facility]. The law prohibits you from [...] contact the sender immediately.[facility] ([facility]) Encounter Details Date Type Department Care Team (Late st Contact Info) Description 11/27/2015 Historical Note [facility] Well.ca System Devyn Vásquez MD [address] [place] [address] [phone] Social History Tobacco Use Types Packs/Day Years [...] CARRILLO - [facility] [address] [facility] [address] [place] [phone] Brenda Clay MD [address] [facility] [address] [place] [phone] 04/15/2026 10:00 AM EDT Office Visit LEATHA Primary [facility] at [facility] + [facility] [place] [address] [facility] [address] [place] [phone] Sena Dominguez PA [address] [facility] [place] [address] documented as of this encounter Visit Diagnoses Not on filedocumented in this encounter Care Teams Combination Man Relationship Specialty Start Date End Date Meme Steel MD [address] [place] [address] 105 [place] [address] PCP - General Pediatrics 06/05/18 04/25/22 No Pcp, Pcp PCP - General 06/08/22 07/19/22 Guadalupe Mcbride MD PCP - General Family Medicine 07/20/22 11/01/23 Sena Dominguez PA [address] [place] [address] [place] [address] PCP - BRADY Physician Die Drawing Checker 11/02/23 Levy Barry MD [address] [place] [address] [place] [address] PCP - General Family Medicine 12/20/23 documented as of this encounter
--- OUTSIDE RECORDS SUMMARY | 2025-07-28 14:42 | XMS_ITS | Encounter Summary ---
Author Organization [facility] work ([facility]) Address [address] [place] [address] Care Team Providers Care Airfield Defence Guard Name Role Phone Meme Steel MD Primary Care Provider [phone] Pcp, Pcp Primary Care Provider Unavailabl Guadalupe Bardales MD Primary Care Provider [phone] Sena Dominguez Unavailable [phone] Levy Barry MD Primary Care Provider Unavailab le Source Comments The information that you have received may contain highly confidential and/or federally protected health information. This information has been disclosed to you from records protected by [facility]. The law prohibits you from [...] contact the sender immediately.[facility] ([facility]) Encounter Details Date Type Department Care Team (Late st Contact Info) Description 06/16/2008 Historical Note [facility] Synqera System Devyn Vásquez MD [address] [place] [address] [phone] Social History Tobacco Use Types Packs/Day Years [...] CARRILLO - [facility] at [facility] [address] [facility] [address] [facility] [address] [place] [phone] Brenda Clay MD [address] [facility] [place] [address] [place] [phone] 04/15/2026 10:00 AM EDT Office Visit LEATHA Primary Care at [facility] + [facility] [address] [place] [phone] Sena Dominguez PA [address] [facility] [place] [address] documented as of this encounter Visit Diagnoses Not on filedocumented in this encounter Care Teams Airfield Defence Guard Relationship Specialty Start Date End Date Meme Steel MD [address] [place] [address] 105 [place] [address] PCP - General Pediatrics 06/05/18 04/25/22 No Pcp, Pcp PCP - General 06/08/22 07/19/22 Guadalupe Mcbride MD PCP - General Family Medicine 07/20/22 11/01/23 Sena Dominguez PA [address] [place] [address] [place] [address] PCP - BRADY Physician Gray Tender 11/02/23 Levy Barry MD [address] [place] [address] [place] [address] PCP - General Family Medicine 12/20/23 documented as of this encounter
--- OUTSIDE RECORDS SUMMARY | 2025-07-28 14:42 | XMS_ITS | Encounter Summary ---
Author Organization [facility] work ([facility]) Address [address] [place] [address] Care Team Providers Care Cane Piler Name Role Phone Meme Steel MD Primary Care Provider [phone] Pcp, Pcp Primary Care Provider Unavailabl Guadalupe Bardales MD Primary Care Provider [phone] Sena Dominguez Unavailable [phone] Levy Barry MD Primary Care Provider Unavailab le Source Comments The information that you have received may contain highly confidential and/or federally protected health information. This information has been disclosed to you from records protected by [facility]. The law prohibits you [...] please contact the sender immediately.[facility] ([facility]) Encounter Details Date Type Department Care Team (Late st Contact Info) Description 08/21/2014 Historical Note [facility] Space Apart System Devyn Vásquez MD [address] [place] [address] [phone] Social History Tobacco Use Types Packs/Day Years [...] LEATHA CARRILLO - [facility] [address] [facility] [address] [place] [phone] Brenda Clay MD [address] [facility] [address] [place] [phone] 04/15/2026 10:00 AM EDT Office Visit LEATHA Primary Care at [facility] + [facility] [address] [facility] [address] [facility] [address] [place] [phone] Sena Dominguez PA [address] [facility] [place] [address] documented as of this encounter Visit Diagnoses Not on filedocumented in this encounter Care Teams Cane Piler Relationship Specialty Start Date End Date Meme Steel MD [address] [place] [address] 105 [place] [address] PCP - General Pediatrics 06/05/18 04/25/22 No Pcp, Pcp PCP - General 06/08/22 07/19/22 Guadalupe Mcbride MD PCP - General Family Medicine 07/20/22 11/01/23 Sena Dominguez PA [address] [place] [address] [place] [address] PCP - BRADY Physician French Instructor 11/02/23 Levy Barry MD [address] [place] [address] [place] [address] PCP - General Family Medicine 12/20/23 documented as of this encounter
--- OUTSIDE RECORDS SUMMARY | 2025-07-28 14:42 | XMS_ITS | Encounter Summary ---
Author Organization [facility] work ([facility]) Address [address] [place] [address] Care Team Providers Care Learning Support Services Director Name Role Phone Sena Dominguez Unavailable [phone] Levy Barry MD Primary Care Provider Unavailab le Source Comments The information that you have received may contain highly confidential and/or federally protected health information. This information has been disclosed to you from records protected by [employer]. The law prohibits you from making any [...] please contact the sender immediately.[facility] ([facility]) Encounter Details Date Type Department Care Team (Latest Contact Info) Description 07/07/2025 Results Follow-Up [facility] Primary Care at [facility] + [facility] [address] [place] [phone] Annel Jhaveri PA [address] [place] [phone] Comprehensive metabolic panel, CBC and differential, Lipid [...] 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 1 01/31/2025 Alcohol and Drug Use [...] Recorded In the past 12 months has [employer], gas, oil, or water [employer] threatened to shut off services in your home? No 01/31/2025 Comments No Sex and Gender Information Value Date Recorded Sex Assigned at Not on file Legal Sex Female 1:04 AM EDT Gender Identity Not on file Sexual Orientation Not on file documented as of this encounter Plan of Treatment Upcoming Encounters Date Type Department Care Team ([facility] Contact Info) Description 10/10/2025 10:00 AM EST Office Visit LEATHA CARRILLO [facility] [address] [place] [address] [address] [place] [phone] Brenda Clay MD [address] [place] [address] [place] [phone] 04/15/2026 10:00 AM EDT Office Visit LEATHA Primary Care at [facility] + [address] [place] [phone] Sena Dominguez PA [address] [place] [address] [place] [address] documented as of this encounter Goals Goal Patient Goal Type Associated Problems Recent Progress Patient-Stated? Author Water intake Diet No Teena Snyder RD Note: At least 4, 17 ounces water daily Increase Exercise Exercise Yes Teena Snyder RD Note: Walk dog: at lest 1 x week for 10 minutes (retirement goal of 150 minutes planned movement weekly) [...] documented as of this encounter Care Teams Learning Support Services Director Relationship Specialty Start Date End Date Sena Dominguez PA [address] [place] [address] [place] [address] PCP - BRADY Physician Music Theory Professor 11/02/23 Levy Barry MD [address] [place] [address] [place] [address] PCP - General Family Medicine 12/20/23 documented as of this encounter
--- OUTSIDE RECORDS SUMMARY | 2025-07-28 14:42 | XMS_ITS | Encounter Summary ---
Author Organization [facility] work ([facility]) Address [address] [place] [address] Care Team Providers Care Corporate Aircraft Mechanic Name Role Phone Meme Steel MD Primary Care Provider [phone] Pcp, Pcp Primary Care Provider Unavailabl Guadalupe Bardales MD Primary Care Provider [phone] Sena Dominguez Unavailable [phone] Levy Barry MD Primary Care Provider Unavailab le Source Comments The information that you have received may contain highly confidential and/or federally protected health information. This information has been disclosed to you from records protected by [facility]. The law prohibits you from [...] please contact the sender immediately.[facility] ([facility]) Encounter Details Date Type Department Care Team (Late st Contact Info) Description 01/07/2016 Historical Note [facility] Xianguo System Devyn Vásquez MD [address] [place] [address] [phone] Social History Tobacco Use Types Packs/Day Years [...] CARRILLO - [facility] [address] [facility] [address] [place] [phone] Brenda Clay MD [address] [facility] [address] [place] [phone] 04/15/2026 10:00 AM EDT Office Visit LEATHA Primary [facility] at [facility] + [facility] [address] [facility] [address] [place] [address] Sena Dominguez PA [address] [facility] [place] [address] documented as of this encounter Visit Diagnoses Not on filedocumented in this encounter Care Teams Corporate Aircraft Mechanic Relationship Specialty Start Date End Date Meme Steel MD [address] [place] [address] 105 [place] [address] PCP - General Pediatrics 06/05/18 04/25/22 No Pcp, Pcp PCP - General 06/08/22 07/19/22 Guadalupe Mcbride MD PCP - General Family Medicine 07/20/22 11/01/23 Sena Dominguez PA [address] [place] [address] [place] [address] PCP - BRADY Physician It Disaster Recovery Manager 11/02/23 Levy Barry MD [address] [place] [address] [place] [address] PCP - General Family Medicine 12/20/23 documented as of this encounter
--- OUTSIDE RECORDS SUMMARY | 2025-07-28 14:42 | XMS_ITS | Encounter Summary ---
Author Organization [facility] work ([facility]) Address [address] [place] [address] Care Team Providers Care Binder Sorter Name Role Phone Meme Steel MD Primary Care Provider [phone] Pcp, Pcp Primary Care Provider Unavailabl Guadalupe Bardales MD Primary Care Provider [phone] Sena Dominguez Unavailable Levy Barry MD Primary Care Provider Unavailab le Source Comments The information that you have received may contain highly confidential and/or federally protected health information. This information has been disclosed to you from records protected by [facility]. The law prohibits you [...] error, please contact the sender immediately.[facility] ([facility]) Encounter Details Date Type Department Care Team (Late st Contact Info) Description 04/10/2009 Historical Note [facility] Packetmotion System Devyn Vásquez MD [address] [place] [address] [phone] Social History Tobacco Use Types Packs/Day Years [...] LEATHA CARRILLO - [facility] [address] [facility] [address] [place] [phone] Brenda Clay MD [address] [facility] [address] [place] [address] 04/15/2026 10:00 AM EDT Office Visit LEATHA Primary Care at [facility] + [facility] [address] [facility] [address] [place] [phone] Sena Dominguez PA [address] [facility] [place] [address] documented as of this encounter Visit Diagnoses Not on filedocumented in this encounter Care Teams Binder Sorter Relationship Specialty Start Date End Date Meme Steel MD [address] [place] [address] 105 [place] [address] PCP - General Pediatrics 06/05/18 04/25/22 No Pcp, Pcp PCP - General 06/08/22 07/19/22 Guadalupe Mcbride MD PCP - General Family Medicine 07/20/22 11/01/23 Sena Dominguez PA [address] [place] [address] [place] [address] PCP - BRADY Physician Freight Tallier 11/02/23 Levy Barry MD [address] [place] [address] [place] [address] PCP - General Family Medicine 12/20/23 documented as of this encounter
--- OUTSIDE RECORDS SUMMARY | 2025-07-28 14:42 | XMS_ITS | Encounter Summary ---
Author Organization [facility] work ([facility]) Address [address] [place] [address] Care Team Providers Care Button Tacker Name Role Phone Meme Steel MD Primary Care Provider No Pcp, Pcp Primary Care Provider Unavailabl Guadalupe Bardales MD Primary Care Provider [phone] Sena Dominguez Unavailable [phone] Levy Barry MD Primary Care Provider Unavailab le Source Comments The information that you have received may contain highly confidential and/or federally protected health information. This information has been disclosed to you from records protected by [facility]. The law prohibits you [...] error, please contact the sender immediately.[facility] ([facility]) Encounter Details Date Type Department Care Team (Late st Contact Info) Description 06/06/2008 Historical Note [facility] Ad Summos System Devyn Vásquez MD [address] [place] [address] [phone] Social History Tobacco Use Types Packs/Day Years [...] AM EST Office Visit LEATHA CARRILLO - [facility] [address] [facility] [address] [place] [phone] Brenda Clay MD [address] [facility] [address] [place] [address] 04/15/2026 10:00 AM EDT Office Visit LEATHA Primary Care at [facility] + [facility] [address] [facility] [address] [place] [address] Sena Dominguez PA [address] [facility] [place] [address] documented as of this encounter Visit Diagnoses Not on filedocumented in this encounter Care Teams Button Tacker Relationship Specialty Start Date End Date Meme Steel MD [address] [place] [address] 105 [place] [address] PCP - General Pediatrics 06/05/18 04/25/22 No Pcp, Pcp PCP - General 06/08/22 07/19/22 Guadalupe Mcbride MD PCP - General Family Medicine 07/20/22 11/01/23 Sena Dominguez PA [address] [place] [address] [place] [address] PCP - BRADY Physician Sort Manager 11/02/23 Levy Barry MD [address] [place] [address] [place] [address] PCP - General Family Medicine 12/20/23 documented as of this encounter
--- OUTSIDE RECORDS SUMMARY | 2025-07-28 14:42 | XMS_ITS | Encounter Summary ---
Author Organization [facility] work ([facility]) Address [address] [address] [place] [address] Care Team Providers Care Polisher Aluminum Name Role Phone Meme Steel MD Primary Care Provider [phone] Pcp, Pcp Primary Care Provider Unavailabl Guadalupe Bardales MD Primary Care Provider [phone] Sena Dominguez Unavailable [phone] Levy Barry MD Primary Care Provider Unavailab le Source Comments The information that you have received may contain highly confidential and/or federally protected health information. This information has been disclosed to you from records protected by [facility]. The law prohibits [...] please contact the sender immediately.[facility] ([facility]) Encounter Details Date Type Department Care Team (Late st Contact Info) Description 01/04/2008 Historical Note [facility] MoodMe System Devyn Vásquez MD [address] [place] [address] [phone] Social History Tobacco Use Types Packs/Day Years [...] LEATHA CARRILLO - [facility] [address] [facility] [address] [place] [phone] Brenda Clay MD [address] [facility] [address] [place] [phone] 04/15/2026 10:00 AM EDT Office Visit LEATHA Primary Care at [facility] [address] [facility] [address] [place] [address] Sena Dominguez PA [address] [facility] [place] [address] documented as of this encounter Visit Diagnoses Not on filedocumented in this encounter Care Teams Polisher Aluminum Relationship Specialty Start Date End Date Meme Steel MD [address] [place] [address] [place] [address] PCP - General Pediatrics 06/05/18 04/25/22 No Pcp, Pcp PCP - General 06/08/22 07/19/22 Guadalupe Mcbride MD PCP - General Family Medicine 07/20/22 11/01/23 Sena Dominguez PA [address] [place] [address] [place] [address] PCP - BRADY Physician Gambreler Helper 11/02/23 Levy Barry MD [address] [place] [address] [place] [address] PCP - General Family Medicine 12/20/23 documented as of this encounter
--- OUTSIDE RECORDS SUMMARY | 2025-07-28 14:42 | XMS_ITS | Encounter Summary ---
Author Organization [facility] work ([facility]) Address [address] [place] [address] Care Team Providers Care Professional Soccer Player Name Role Phone Meme Steel MD Primary Care Provider [phone] Pcp, Pcp Primary Care Provider Unavailabl Guadalupe Bardales MD Primary Care Provider [phone] Sena Dominguez Unavailable [phone] Levy Barry MD Primary Care Provider Unavailab le Source Comments The information that you have received may contain highly confidential and/or federally protected health information. This information has been disclosed to you from records protected by [facility]. The law prohibits you from [...] sender immediately.[facility] ([facility]) Encounter Details Date Type Department Care Team (Late st Contact Info) Description 03/03/2005 Historical Note [facility] [employer] Devyn Vásquez MD [address] [place] [address] [id number] Social History Tobacco Use Types Packs/Day Years [...] LEATHA CARRILLO - [facility] [address] [facility] [address] [place] [phone] Brenda Clay MD [address] [facility] [place] [address] [place] [address] 04/15/2026 10:00 AM EDT Office Visit [facility] + [facility] [address] [facility] [address] [place] [address] Sena Dominguez PA [address] [facility] [place] [address] documented as of this encounter Visit Diagnoses Not on filedocumented in this encounter Care Teams Professional Soccer Player Relationship Specialty Start Date End Date Meme Steel MD [address] [place] [address] 105 [place] [address] PCP - General Pediatrics 06/05/18 04/25/22 No Pcp, Pcp PCP - General 06/08/22 07/19/22 Guadalupe Mcbride MD PCP - General Family Medicine 07/20/22 11/01/23 Sena Dominguez PA [address] [place] [address] [place] [address] PCP - BRADY Physician Wood Treating Inspector 11/02/23 Levy Barry MD [address] [place] [address] [place] [address] PCP - General Family Medicine 12/20/23 documented as of this encounter
--- OUTSIDE RECORDS SUMMARY | 2025-07-28 14:42 | XMS_ITS | Encounter Summary ---
Author Organization [facility] work ([facility]) Address [address] [place] [address] Care Team Providers Care Report Writer Name Role Phone Meme Steel MD Primary Care Provider [phone] Pcp, Pcp Primary Care Provider Unavailabl Guadalupe Bardales MD Primary Care Provider [phone] Sena Dominguez Unavailable [phone] Levy Barry MD Primary Care Provider Unavailab le Source Comments The information that you have received may contain highly confidential and/or federally protected health information. This information has been disclosed to you from records protected by [facility]. The law prohibits you from making [...] the sender immediately.[facility] ([facility]) Encounter Details Date Type Department Care Team (Late st Contact Info) Description 06/16/2014 Historical Note [facility] [employer] System Devyn Vásquez MD [address] [place] [address] [phone] Social History Tobacco Use Types Packs/Day Years [...] CARRILLO - [facility] [address] [facility] [address] [place] [phone] Brenda Clay MD [address] [facility] [place] [address] [place] [address] 04/15/2026 10:00 AM EDT Office Visit [facility] [address] [facility] [address] [place] [address] Sena Dominguez PA [address] [facility] [place] [address] documented as of this encounter Visit Diagnoses Not on filedocumented in this encounter Care Teams Report Writer Relationship Specialty Start Date End Date Meme Steel MD [address] [place] [address] 105 [place] [address] PCP - General Pediatrics 06/05/18 04/25/22 No Pcp, Pcp PCP - General 06/08/22 07/19/22 Guadalupe Mcbride MD PCP - General Family Medicine 07/20/22 11/01/23 Sena Dominguez PA [address] [place] [address] [place] [address] PCP - BRADY Physician Glass Lined Tank Repairer 11/02/23 Levy Barry MD [address] [place] [address] [place] [address] PCP - General Family Medicine 12/20/23 documented as of this encounter
--- OUTSIDE RECORDS SUMMARY | 2025-07-28 14:42 | XMS_ITS | Encounter Summary ---
Author Organization [facility] work ([facility]) Address [address] [place] [address] Care Team Providers Care Concrete Finishing Machine Operator Name Role Phone Meme Steel MD Primary Care Provider [phone] Pcp, Pcp Primary Care Provider Unavailabl Guadalupe Bardales MD Primary Care Provider [phone] Sena Dominguez Unavailable [phone] Levy Barry MD Primary Care Provider Unavailab le Source Comments The information that you have received may contain highly confidential and/or federally protected health information. This information has been disclosed to you from records protected by [facility]. The law prohibits you from [...] sender immediately.[facility] ([facility]) Encounter Details Date Type Department Care Team (Late st Contact Info) Description 01/02/2014 Historical Note [facility] [employer] System Devyn Vásquez MD [address] [place] [address] [phone] Social History Tobacco Use Types Packs/Day Years [...] CARRILLO - [facility] [address] [facility] [address] [place] [phone] Brenda Clay MD [address] [facility] [place] [address] [place] [address] 04/15/2026 10:00 AM EDT Office Visit [facility] [address] [facility] [address] [place] [address] Sena Dominguez PA [address] [facility] [place] [address] documented as of this encounter Visit Diagnoses Not on filedocumented in this encounter Care Teams Concrete Finishing Machine Operator Relationship Specialty Start Date End Date Meme Steel MD [address] [place] [address] 105 [place] [address] PCP - General Pediatrics 06/05/18 04/25/22 No Pcp, Pcp PCP - General 06/08/22 07/19/22 Guadalupe Mcbride MD PCP - General Family Medicine 07/20/22 11/01/23 Sena Dominguez PA [address] [place] [address] [place] [address] PCP - BRADY Physician Scrip Clerk 11/02/23 Levy Barry MD [address] [place] [address] [place] [address] PCP - General Family Medicine 12/20/23 documented as of this encounter
--- OUTSIDE RECORDS SUMMARY | 2025-07-28 14:42 | XMS_ITS | Encounter Summary ---
Author Organization [facility] work ([facility]) Address [address] [place] [address] Care Team Providers Care Project Engineer Chemicals Name Role Phone Meme Steel MD Primary Care Provider [phone] Pcp, Pcp Primary Care Provider Unavailabl Guadalupe Bardales MD Primary Care Provider [phone] Sena Dominguez Unavailable [phone] Levy Barry MD Primary Care Provider Unavailab le Source Comments The information that you have received may contain highly confidential and/or federally protected health information. This information has been disclosed to you from records protected by [facility]. The law prohibits you [...] please contact the sender immediately.[facility] ([facility]) Encounter Details Date Type Department Care Team (Late st Contact Info) Description 10/12/2015 Historical Note [facility] [employer] System Devyn Vásquez MD [address] [place] [address] [phone] Social History Tobacco Use Types Packs/Day Years [...] CARRILLO - [facility] [address] [facility] [address] [place] [phone] Brenda Clay MD [address] [facility] [place] [address] [place] [address] 04/15/2026 10:00 AM EDT Office Visit [facility] [address] [facility] [address] [place] [address] Sena Dominguez PA [address] [facility] [place] [address] documented as of this encounter Visit Diagnoses Not on filedocumented in this encounter Care Teams Project Engineer Chemicals Relationship Specialty Start Date End Date Meme Steel MD [address] [place] [address] 105 [place] [address] PCP - General Pediatrics 06/05/18 04/25/22 No Pcp, Pcp PCP - General 06/08/22 07/19/22 Guadalupe Mcbride MD PCP - General Family Medicine 07/20/22 11/01/23 Sena Dominguez PA [address] [place] [address] [place] [address] PCP - BRADY Physician Baseball Coach 11/02/23 Levy Barry MD [address] [place] [address] [place] [address] PCP - General Family Medicine 12/20/23 documented as of this encounter
--- OUTSIDE RECORDS SUMMARY | 2025-07-28 14:42 | XMS_ITS | Encounter Summary ---
Author Organization [facility] work ([facility]) Address [address] [place] [address] Care Team Providers Care Clinical Pharmacologist Name Role Phone Meme Steel MD Primary Care Provider [phone] Pcp, Pcp Primary Care Provider Unavailabl Guadalupe Bardales MD Primary Care Provider [phone] Sena Dominguez Unavailable [phone] Levy Barry MD Primary Care Provider Unavailab le Source Comments The information that you have received may contain highly confidential and/or federally protected health information. This information has been disclosed to you from records protected by [facility]. The law prohibits you from [...] please contact the sender immediately.[facility] ([facility]) Encounter Details Date Type Department Care Team (Late st Contact Info) Description 01/03/2008 Historical Note [facility] [employer] System Devyn Vásquez MD [address] [place] [address] [phone] Social History Tobacco Use Types Packs/Day Years [...] - [facility] [address] [facility] [address] [place] [phone] Brenda Clay MD [address] [facility] [address] [place] [address] 04/15/2026 10:00 AM EDT Office Visit LE[facility]HA [facility] at [facility] [address] [facility] [address] [place] [address] Sena Dominguez PA [address] [facility] [place] [address] documented as of this encounter Visit Diagnoses Not on filedocumented in this encounter Care Teams Clinical Pharmacologist Relationship Specialty Start Date End Date Meme Steel MD [address] [place] [address] 105 [place] [address] PCP - General Pediatrics 06/05/18 04/25/22 No Pcp, Pcp PCP - General 06/08/22 07/19/22 Guadalupe Mcbride MD PCP - General Family Medicine 07/20/22 11/01/23 Sena Dominguez PA [address] [place] [address] [place] [address] PCP - BRADY Physician Cotton Stomper 11/02/23 Levy Barry MD [address] [place] [address] [place] [address] PCP - General Family Medicine 12/20/23 documented as of this encounter
--- OUTSIDE RECORDS SUMMARY | 2025-07-28 14:42 | XMS_ITS | Encounter Summary ---
Author Organization [facility] work ([facility]) Address [address] [place] [address] Care Team Providers Care Assembly Loader Name Role Phone Meme Steel MD Primary Care Provider [phone] Pcp, Pcp Primary Care Provider Unavailabl Guadalupe Bardales MD Primary Care Provider [phone] Sena Dominguez Unavailable [phone] Levy Barry MD Primary Care Provider Unavailab le Source Comments The information that you have received may contain highly confidential and/or federally protected health information. This information has been disclosed to you from records protected by [facility]. The law prohibits you [...] error, please contact the sender immediately.[facility] ([facility]) Encounter Details Date Type Department Care Team (Late st Contact Info) Description 01/04/2008 Historical Note [facility] [employer] System Devyn Vásquez MD [address] [place] [address] [phone] Social History Tobacco Use Types Packs/Day Years [...] Visit LEATHA CARRILLO - [facility] [address] [facility] [address] [place] [phone] Brenda Clay MD [address] [facility] [address] [place] [address] 04/15/2026 10:00 AM EDT Office Visit LE[facility]HA [facility] at [facility] [address] [facility] [address] [place] [address] Sena Dominguez PA [address] [facility] [place] [address] documented as of this encounter Visit Diagnoses Not on filedocumented in this encounter Care Teams Assembly Loader Relationship Specialty Start Date End Date Meme Steel MD [address] [place] [address] 105 [place] [address] PCP - General Pediatrics 06/05/18 04/25/22 No Pcp, Pcp PCP - General 06/08/22 07/19/22 Guadalupe Mcbride MD PCP - General Family Medicine 07/20/22 11/01/23 Sena Dominguez PA [address] [place] [address] [place] [address] PCP - BRADY Physician Private Equity Analyst 11/02/23 Levy Barry MD [address] [place] [address] [place] [address] PCP - General Family Medicine 12/20/23 documented as of this encounter
--- OUTSIDE RECORDS SUMMARY | 2025-07-28 14:42 | XMS_ITS | Encounter Summary ---
Author Organization [facility] work ([facility] Address [address] [place] [address] Care Team Providers Care Stockbroking Dealer Name Role Phone Meme Steel MD Primary Care Provider [phone] Pcp, Pcp Primary Care Provider Unavailabl Guadalupe Bardales MD Primary Care Provider [phone] Sena Dominguez Unavailable [phone] Levy Barry MD Primary Care Provider Unavailab le Source Comments The information that you have received may contain highly confidential and/or federally protected health information. This information has been disclosed to you from records protected by [facility]. The [...] error, please contact the sender immediately.[facility] ([facility] Encounter Details Date Type Department Care Team (Late st Contact Info) Description 02/18/2014 Historical Note [facility] [employer] System Devyn Vásquez MD [address] [place] [address] [phone] Social History Tobacco Use Types Packs/Day Years [...] LEATHA CARRILLO - [facility] [address] [facility] [address] [place] [phone] Brenda Clay MD [address] [facility] [place] [address] [place] [address] 04/15/2026 10:00 AM EDT Office Visit [facility]ATHA [facility] at [facility] [address] [facility] [address] [place] [address] Sena Dominguez PA [address] [facility] [place] [address] documented as of this encounter Visit Diagnoses Not on filedocumented in this encounter Care Teams Stockbroking Dealer Relationship Specialty Start Date End Date Meme Steel MD [address] [place] [address] 105 [place] [address] PCP - General Pediatrics 06/05/18 04/25/22 No Pcp, Pcp PCP - General 06/08/22 07/19/22 Guadalupe Mcbride MD PCP - General Family Medicine 07/20/22 11/01/23 Sena Dominguez PA [address] [place] [address] [place] [address] PCP - BRADY Physician Wood Chopper 11/02/23 Levy Barry MD [address] [place] [address] [place] [address] PCP - General Family Medicine 12/20/23 documented as of this encounter
--- OUTSIDE RECORDS SUMMARY | 2025-07-28 14:42 | XMS_ITS | Encounter Summary ---
Author Organization [facility] work ([facility]) Address [address] [facility] [address] [address] [place] [address] Care Team Providers Care House Wrecker Name Role Phone Meme Steel MD Primary Care Provider [phone] Pcp, Pcp Primary Care Provider Unavailabl Guadalupe Bardales MD Primary Care Provider [phone] Sena Dominguez Unavailable [phone] Levy Barry MD Primary Care Provider Unavailab le Source Comments The information that you have received may contain highly confidential and/or federally protected health information. This information has been disclosed to you from records protected by [facility]. The law prohibits you [...] sender immediately.[facility] ([facility]) Encounter Details Date Type Department Care Team (Late st Contact Info) Description 11/25/2014 Historical Note [facility] [employer] System Devyn Vásquez MD [address] [place] [address] [phone] Social History Tobacco Use Types Packs/Day Years [...] CARRILLO - [facility] [address] [facility] [address] [place] [phone] Brenda Clay MD [address] [facility] [place] [address] [place] [phone] 04/15/2026 10:00 AM EDT Office Visit LEATHA [facility] at [facility] + [facility] [address] [facility] [address] [place] [address] Sena Dominguez PA [address] [facility] [place] [address] documented as of this encounter Visit Diagnoses Not on filedocumented in this encounter Care Teams House Wrecker Relationship Specialty Start Date End Date Meme Steel MD [address] [place] [address] 105 [place] [address] PCP - General Pediatrics 06/05/18 04/25/22 No Pcp, Pcp PCP - General 06/08/22 07/19/22 Guadalupe Mcbride MD PCP - General Family Medicine 07/20/22 11/01/23 Sena Dominguez PA [address] [place] [address] [place] [address] PCP - BRADY Physician Apparel Manufacture Instructor 11/02/23 Levy Barry MD [address] [place] [address] [place] [address] PCP - General Family Medicine 12/20/23 documented as of this encounter
--- OUTSIDE RECORDS SUMMARY | 2025-07-28 14:42 | XMS_ITS | Encounter Summary ---
Author Organization [facility] work ([facility]) Address [address] [place] [address] Care Team Providers Care Librarian Head Name Role Phone Meme Steel MD Primary Care Provider [phone] No Pcp, Pcp Primary Care Provider Unavailabl Guadalupe Bardales MD Primary Care Provider [phone] Sena Dominguez Unavailable [phone] Levy Barry MD Primary Care Provider Unavailab le Source Comments The information that you have received may contain highly confidential and/or federally protected health information. This information has been disclosed to you from records protected by [facility]. The law prohibits [...] [facility] [address] [facility] ([facility]) Encounter Details Date Type Department Care Team (Late st Contact Info) Description 05/20/2014 Historical Note [facility] [employer] System Devyn Vásquez MD [address] [place] [phone] Social History Tobacco Use Types Packs/Day Years [...] Visit LEATHA CARRILLO - [facility] [address] [facility] [address] [place] [phone] Brenda Clay MD [address] [facility] [address] [place] [address] 04/15/2026 10:00 AM EDT Office Visit [facility] [address] [facility] [address] [place] [address] Sena Dominguez PA [address] [facility] [place] [address] documented as of this encounter Visit Diagnoses Not on filedocumented in this encounter Care Teams Librarian Head Relationship Specialty Start Date End Date Meme Steel MD [address] [place] [address] 105 [place] [address] PCP - General Pediatrics 06/05/18 04/25/22 No Pcp, Pcp PCP - General 06/08/22 07/19/22 Guadalupe Mcbride MD PCP - General Family Medicine 07/20/22 11/01/23 Sena Dominguez PA [address] [place] [address] [place] [address] PCP - BRADY Physician Mexican Food Maker Hand 11/02/23 Levy Barry MD [address] [place] [address] [place] [address] PCP - General Family Medicine 12/20/23 documented as of this encounter
--- OUTSIDE RECORDS SUMMARY | 2025-07-28 14:42 | XMS_ITS | Encounter Summary ---
Author Organization [facility] work ([facility]) Address [address] [place] [address] Care Team Providers Care Theater Usher Name Role Phone Meme Steel MD Primary Care Provider [phone] No Pcp, Pcp Primary Care Provider Unavailabl Guadalupe Bardales MD Primary Care Provider [phone] Sena Dominguez Unavailable [phone] Levy Barry MD Primary Care Provider Unavailab le Source Comments The information that you have received may contain highly confidential and/or federally protected health information. This information has been disclosed to you from records protected by [facility]. The law prohibits you from [...] contact the sender immediately.[facility] ([facility]) Encounter Details Date Type Department Care Team (Late st Contact Info) Description 06/18/2014 Historical Note [facility] [employer]wy System Devyn Vásquez MD [address] [place] [address] [phone] Social History Tobacco Use Types Packs/Day Years [...] CARRILLO - [facility] [address] [facility] [address] [place] [phone] Brenda Clay MD [address] [facility] [address] [place] [address] 04/15/2026 10:00 AM EDT Office Visit LEATHA [facility] at [facility] + [facility] [address] [facility] [address] [place] [address] Sena Dominguez PA [address] [facility] [place] [address] documented as of this encounter Visit Diagnoses Not on filedocumented in this encounter Care Teams Theater Usher Relationship Specialty Start Date End Date Meme Steel MD [address] [place] [address] 105 [place] [address] PCP - General Pediatrics 06/05/18 04/25/22 No Pcp, Pcp PCP - General 06/08/22 07/19/22 Guadalupe Mcbride MD PCP - General Family Medicine 07/20/22 11/01/23 Sena Dominguez PA [address] [place] [address] [place] [address] PCP - BRADY Physician Mental Health Unit Lead Psychologist 11/02/23 Levy Barry MD [address] [place] [address] [place] [address] PCP - General Family Medicine 12/20/23 documented as of this encounter
--- OUTSIDE RECORDS SUMMARY | 2025-07-28 14:42 | XMS_ITS | Encounter Summary ---
Author Organization [facility] work ([facility]) Address [address] [place] [address] Care Team Providers Care Die Caster Name Role Phone Meme Steel MD Primary Care Provider [phone] Pcp, Pcp Primary Care Provider Unavailabl Guadalupe Bardales MD Primary Care Provider [phone] Sena Dominguez Unavailable Levy Barry MD Primary Care Provider Unavailab le Source Comments The information that you have received may contain highly confidential and/or federally protected health information. This information has been disclosed to you from records protected by [facility]. The law prohibits you [...] please contact the sender immediately.[facility] ([facility]) Encounter Details Date Type Department Care Team (Late st Contact Info) Description 10/02/2007 Historical Note [facility] [employer] System Devyn Vásquez MD [address] [place] [address] [phone] Social History Tobacco Use Types Packs/Day Years [...] Visit LEATHA CARRILLO - [facility] [address] [facility] [address] [place] [phone] Brenda Clay MD [address] [facility] [address] [place] [address] 04/15/2026 10:00 AM EDT Office Visit [facility] at [facility] [address] [facility] [address] [place] [address] Sena Dominguez PA [address] [facility] [place] [address] documented as of this encounter Visit Diagnoses Not on filedocumented in this encounter Care Teams Die Caster Relationship Specialty Start Date End Date Meme Steel MD [address] [place] [address] 105 [place] [address] PCP - General Pediatrics 06/05/18 04/25/22 No Pcp, Pcp PCP - General 06/08/22 07/19/22 Guadalupe Mcbride MD PCP - General Family Medicine 07/20/22 11/01/23 Sena Dominguez PA [address] [place] [address] [place] [address] PCP - BRADY Physician Brim Blocker 11/02/23 Levy Barry MD [address] [place] [address] [place] [address] PCP - General Family Medicine 12/20/23 documented as of this encounter
--- OUTSIDE RECORDS SUMMARY | 2025-07-28 14:42 | XMS_ITS | Encounter Summary ---
Author Organization [facility] work ([facility]) Address [address] [place] [address] Care Team Providers Care Chauffeur Airport Limousine Name Role Phone Meme Steel MD Primary Care Provider [phone] Pcp, Pcp Primary Care Provider Unavailabl Guadalupe Bardales MD Primary Care Provider [phone] Sena Dominguez Unavailable [phone] Levy Barry MD Primary Care Provider Unavailab le Source Comments The information that you have received may contain highly confidential and/or federally protected health information. This information has been disclosed to you from records protected by [facility]. The law prohibits you from [...] Contact Info) Description 01/03/2008 Historical Note [facility] [employer] System Devyn Vásquez MD [address] [place] [address] [phone] Social History Tobacco Use Types Packs/Day Years [...] Visit LEATHA CARRILLO - [facility] [address] [facility] [address] [place] [phone] Brenda Clay MD [address] [facility] [address] [place] [address] 04/15/2026 10:00 AM EDT Office Visit [facility]HA [facility] at [facility] + [facility] [address] [facility] [address] [place] [address] Sena Dominguez PA [address] [facility] [place] [address] documented as of this encounter Visit Diagnoses Not on filedocumented in this encounter Care Teams Chauf[employer]ur [place] Limousine Relationship Specialty Start Date End Date Meme Steel MD [address] [place] [address] 105 [place] [address] PCP - General Pediatrics 06/05/18 04/25/22 No Pcp, Pcp PCP - General 06/08/22 07/19/22 Guadalupe Mcbride MD PCP - General Family Medicine 07/20/22 11/01/23 Sena Dominguez PA [address] [place] [address] [place] [address] PCP - BRADY Physician Moving Picture Producer 11/02/23 Levy Barry MD [address] [place] [address] [place] [address] PCP - General Family Medicine 12/20/23 documented as of this encounter
--- OUTSIDE RECORDS SUMMARY | 2025-07-28 14:42 | XMS_ITS | Encounter Summary ---
Author Organization [facility] work ([facility]) Address [address] [place] [address] Care Team Providers Care Fagoter Name Role Phone Meme Steel MD Primary Care Provider [phone] Pcp, Pcp Primary Care Provider Unavailabl Guadalupe Bardales MD Primary Care Provider [phone] Sena Dominguez Unavailable Levy Barry MD Primary Care Provider Unavailab le Source Comments The information that you have received may contain highly confidential and/or federally protected health information. This information has been disclosed to you from records protected by [facility]. The law prohibits you [...] sender immediately.[facility] ([facility]) Encounter Details Date Type Department Care Team (Late st Contact Info) Description 02/18/2014 Historical Note [facility] [employer] System Devyn Vásquez MD [address] [place] [address] [phone] Social History Tobacco Use Types Packs/Day Years [...] LEATHA CARRILLO - [facility] [address] [facility] [address] [place] [phone] Brenda Clay MD [address] [facility] [address] [place] [address] 04/15/2026 10:00 AM EDT Office Visit [facility]HA [facility] at [facility] [address] [facility] [address] [place] [address] Sena Dominguez PA [address] [facility] [place] [address] documented as of this encounter Visit Diagnoses Not on filedocumented in this encounter Care Teams Fagoter Relationship Specialty Start Date End Date Meme Steel MD [address] [place] [address] 105 [place] [address] PCP - General Pediatrics 06/05/18 04/25/22 No Pcp, Pcp PCP - General 06/08/22 07/19/22 Guadalupe Mcbride MD PCP - General Family Medicine 07/20/22 11/01/23 Sena Dominguez PA [address] [place] [address] [place] [address] PCP - BRADY Physician Metal Engineering Process Worker 11/02/23 Levy Barry MD [address] [place] [address] [place] [address] PCP - General Family Medicine 12/20/23 documented as of this encounter
--- OUTSIDE RECORDS SUMMARY | 2025-07-28 14:42 | XMS_ITS | Encounter Summary ---
Author Organization [facility] work ([facility]) Address [address] [place] [address] Care Team Providers Care Drum Printer Name Role Phone Meme Steel MD Primary Care Provider [phone] Pcp, Pcp Primary Care Provider Unavailabl Guadalupe Bardales MD Primary Care Provider [phone] Sena Dominguez Unavailable [phone] Levy Barry MD Primary Care Provider Unavailab le Source Comments The information that you have received may contain highly confidential and/or federally protected health information. This information has been disclosed to you from records protected by [facility]. The law prohibits you from [...] contact the sender immediately.[facility] ([facility]) Encounter Details Date Type Department Care Team (Late st Contact Info) Description 12/27/2007 Historical Note [facility] [employer] System Devyn Vásquez MD [address] [place] [address] [phone] Social History Tobacco Use Types Packs/Day Years [...] Office Visit LEATHA CARRILLO - [facility] [address] [facility] [address] [place] [phone] Brenda Clay MD [address] [facility] [address] [place] [address] 04/15/2026 10:00 AM EDT Office Visit [facility] [address] [facility] [address] [place] [address] Sena Dominguez PA [address] [facility] [place] [address] documented as of this encounter Visit Diagnoses Not on filedocumented in this encounter Care Teams Drum Printer Relationship Specialty Start Date End Date Meme Steel MD [address] [place] [address] 105 [place] [address] PCP - General Pediatrics 06/05/18 04/25/22 No Pcp, Pcp PCP - General 06/08/22 07/19/22 Guadalupe Mcbride MD PCP - General Family Medicine 07/20/22 11/01/23 Sena Dominguez PA [address] [place] [address] [place] [address] PCP - BRADY Physician Sign Installer 11/02/23 Levy Barry MD [address] [place] [address] [place] [address] PCP - General Family Medicine 12/20/23 documented as of this encounter
--- OUTSIDE RECORDS SUMMARY | 2025-07-28 14:42 | XMS_ITS | Encounter Summary ---
Author Organization [facility] work ([facility]) Address [address] [facility] [facility] [address] [address] [address] [place] [address] Care Team Providers Care Corrosion Control Specialist Name Role Phone Meme Steel MD Primary Care Provider [phone] Pcp, Pcp Primary Care Provider Unavailabl Guadalupe Bardales MD Primary Care Provider [phone] Sena Dominguez Unavailable [phone] Levy Barry MD Primary Care Provider Unavailab le Source Comments The information that you have received may contain highly confidential and/or federally protected health information. This information has been disclosed to you from records protected by [facility]. The law prohibits you [...] [facility] ([facility]) Encounter Details Date Type Department Care Team (Late st Contact Info) Description 05/20/2014 Historical Note [facility] [employer] System Devyn Vásquez MD [address] [place] [address] [phone] Social History Tobacco Use Types Packs/Day Years [...] LEATHA CARRILLO - [facility] [address] [facility] [address] [place] [phone] Brenda Clay MD [address] [facility] [address] [place] [address] 04/15/2026 10:00 AM EDT Office Visit [facility] + [facility] [address] [facility] [address] [place] [address] Sena Dominguez PA [address] [facility] [place] [address] documented as of this encounter Visit Diagnoses Not on filedocumented in this encounter Care Teams Corrosion Control Specialist Relationship Specialty Start Date End Date Meme Steel MD [address] [place] [address] 105 [place] [address] PCP - General Pediatrics 06/05/18 04/25/22 No Pcp, Pcp PCP - General 06/08/22 07/19/22 Guadalupe Mcbride MD PCP - General Family Medicine 07/20/22 11/01/23 Sena Dominguez PA [address] [place] [address] [place] [address] PCP - BRADY Physician Hand Bunch Maker 11/02/23 Levy Barry MD [address] [place] [address] [place] [address] PCP - General Family Medicine 12/20/23 documented as of this encounter
--- OUTSIDE RECORDS SUMMARY | 2025-07-28 14:42 | XMS_ITS | Encounter Summary ---
Author Organization [facility] work ([facility]) Address [address] [place] [address] Care Team Providers Care Steam Box Operator Name Role Phone Meme Steel MD Primary Care Provider [phone] Pcp, Pcp Primary Care Provider Unavailabl Guadalupe Bardales MD Primary Care Provider [phone] Sena Dominguez Unavailable [phone] Levy Barry MD Primary Care Provider Unavailab le Source Comments The information that you have received may contain highly confidential and/or federally protected health information. This information has been disclosed to you from records protected by [facility]. The law prohibits you [...] please contact the sender immediately.[facility] ([facility]) Encounter Details Date Type Department Care Team (Late st Contact Info) Description 08/21/2014 Historical Note [facility] pinion-pins System Devyn Vásquez MD [address] [place] [address] [phone] Social History Tobacco Use Types Packs/Day Years [...] LEATHA CARRILLO - [facility] [address] [facility] [address] [place] [phone] Brenda Clay MD [address] [facility] [address] [place] [address] 04/15/2026 10:00 AM EDT Office Visit [facility]HA [facility] [address] [facility] [address] [place] [address] Sena Dominguez PA [address] [facility] [place] [address] documented as of this encounter Visit Diagnoses Not on filedocumented in this encounter Care Teams Steam Box Operator Relationship Specialty Start Date End Date Meme Steel MD [address] [place] [address] 105 [place] [address] PCP - General Pediatrics 06/05/18 04/25/22 No Pcp, Pcp PCP - General 06/08/22 07/19/22 Guadalupe Mcbride MD PCP - General Family Medicine 07/20/22 11/01/23 Sena Dominguez PA [address] [place] [address] [place] [address] PCP - BRADY Physician Personalized Living Manager Nurse 11/02/23 Levy Barry MD [address] [place] [address] [place] [address] PCP - General Family Medicine 12/20/23 documented as of this encounter
--- OUTSIDE RECORDS SUMMARY | 2025-07-28 14:42 | XMS_ITS | Encounter Summary ---
Author Organization [facility] work ([facility]) Address [address] [address] [place] [address] Care Team Providers Care Vitreo Retinal Surgeon Name Role Phone Meme Steel MD Primary Care Provider [phone] Pcp, Pcp Primary Care Provider Unavailabl Guadalupe Bardales MD Primary Care Provider [phone] Sena Dominguez Unavailable [phone] Levy Barry MD Primary Care Provider Unavailab le Source Comments The information that you have received may contain highly confidential and/or federally protected health information. This information has been disclosed to you from records protected by [facility]. The law prohibits you [...] error, please contact the sender immediately.[facility] ([facility]) Encounter Details Date Type Department Care Team (Late st Contact Info) Description 01/07/2016 Historical Note [facility] [employer] System Devyn Vásquez MD [address] [place] [address] [phone] Social History Tobacco Use Types Packs/Day Years [...] LEATHA CARRILLO - [facility] [address] [facility] [address] [place] [phone] Brenda Clay MD [address] [facility] [address] [place] [address] 04/15/2026 10:00 AM EDT Office Visit [facility]HA [facility] at [facility] [address] [facility] [address] [place] [address] Sena Dominguez PA [address] [facility] [place] [address] documented as of this encounter Visit Diagnoses Not on filedocumented in this encounter Care Teams Vitreo Retinal Surgeon Relationship Specialty Start Date End Date Meme Steel MD [address] [place] [address] 105 [place] [address] PCP - General Pediatrics 06/05/18 04/25/22 No Pcp, Pcp PCP - General 06/08/22 07/19/22 Guadalupe Mcbride MD PCP - General Family Medicine 07/20/22 11/01/23 Sena Dominguez PA [address] [place] [address] [place] [address] PCP - BRADY Physician Hoop Punch And Coiler Operator Helper 11/02/23 Levy Barry MD [address] [place] [address] [place] [address] PCP - General Family Medicine 12/20/23 documented as of this encounter
--- OUTSIDE RECORDS SUMMARY | 2025-07-28 14:42 | XMS_ITS | Encounter Summary ---
Author Organization [facility] work ([facility]) Address [address] [facility] [address] [place] [address] Care Team Providers Care Senior Payroll Administrator Name Role Phone Meme Steel MD Primary Care Provider [phone] Pcp, Pcp Primary Care Provider Unavailabl Guadalupe Bardales MD Primary Care Provider [phone] Sena Dominguez Unavailable [phone] Levy Barry MD Primary Care Provider Unavailab le Source Comments The information that you have received may contain highly confidential and/or federally protected health information. This information has been disclosed to you from records protected by [facility]. The law prohibits you [...] please contact the sender immediately.[facility] ([facility]) Encounter Details Date Type Department Care Team (Late st Contact Info) Description 11/26/2007 Historical Note [facility] Validas System Devyn Vásquez MD [address] [place] [address] [phone] Social History Tobacco Use Types Packs/Day Years [...] CARRILLO - [facility] [address] [facility] [address] [place] [phone] Brenda Clay MD [address] [facility] [address] [place] [address] 04/15/2026 10:00 AM EDT Office Visit [facility]HA [facility] at [facility] + [facility] [address] [facility] [address] [place] [address] Sena Dominguez PA [address] [facility] [place] [address] documented as of this encounter Visit Diagnoses Not on filedocumented in this encounter Care Teams Senior Payroll Administrator Relationship Specialty Start Date End Date Meme Steel MD [address] [place] [address] 105 [place] [address] PCP - General Pediatrics 06/05/18 04/25/22 No Pcp, Pcp PCP - General 06/08/22 07/19/22 Guadalupe Mcbride MD PCP - General Family Medicine 07/20/22 11/01/23 Sena Dominguez PA [address] [place] [address] [place] [address] PCP - BRADY Physician Retail Loss Prevention Investigator 11/02/23 Levy Barry MD [address] [place] [address] [place] [address] PCP - General Family Medicine 12/20/23 documented as of this encounter
--- OUTSIDE RECORDS SUMMARY | 2025-07-28 14:42 | XMS_ITS | Encounter Summary ---
Author Organization [facility] work ([facility]) Address [address] [place] [address] Care Team Providers Care Independent Living Advisor Name Role Phone Meme Steel MD Primary Care Provider [phone] Pcp, Pcp Primary Care Provider Unavailabl Guadalupe Bardales MD Primary Care Provider Sena Dominguez Unavailable [phone] Levy Barry MD Primary Care Provider Unavailab le Source Comments The information that you have received may contain highly confidential and/or federally protected health information. This information has been disclosed to you from records protected by [facility]. The law prohibits you [...] please contact the sender immediately.[facility] ([facility]) Encounter Details Date Type Department Care Team (Late st Contact Info) Description 11/07/2014 Historical Note [facility] [employer] System Devyn Vásquez MD [address] [place] [address] [phone] Social History Tobacco Use Types Packs/Day Years [...] LEATHA CARRILLO - [facility] [address] [facility] [address] [place] [phone] Brenda Clay MD [address] [facility] [address] [place] [address] 04/15/2026 10:00 AM EDT Office Visit [facility]HA [facility] at [facility] [address] [facility] [address] [place] [address] Sena Dominguez PA [address] [facility] [place] [address] documented as of this encounter Visit Diagnoses Not on filedocumented in this encounter Care Teams Independent Living Advisor Relationship Specialty Start Date End Date Meme Steel MD [address] [place] [address] 105 [place] [address] PCP - General Pediatrics 06/05/18 04/25/22 No Pcp, Pcp PCP - General 06/08/22 07/19/22 Guadalupe Mcbride MD PCP - General Family Medicine 07/20/22 11/01/23 Sena Dominguez PA [address] [place] [address] [place] [address] PCP - BRADY Physician Physical Therapy Manager 11/02/23 Levy Barry MD [address] [place] [address] [place] [address] PCP - General Family Medicine 12/20/23 documented as of this encounter
--- OUTSIDE RECORDS SUMMARY | 2025-07-28 14:42 | XMS_ITS | Encounter Summary ---
Author Organization [facility] work ([facility]) Address [address] [place] [address] Care Team Providers Care Manager Meeting Name Role Phone Meme Steel MD Primary Care Provider [phone] Pcp, Pcp Primary Care Provider Unavailabl Guadalupe Bardales MD Primary Care Provider [phone] Sena Dominguez Unavailable [phone] Levy Barry MD Primary Care Provider Unavailab le Source Comments The information that you have received may contain highly confidential and/or federally protected health information. This information has been disclosed to you from records protected by [facility]. The law prohibits you from [...] contact the sender immediately.[facility] ([facility]) Encounter Details Date Type Department Care Team (Late st Contact Info) Description 06/16/2014 Historical Note [facility] [employer] System Devyn Vásquez MD [address] [place] [address] [phone] Social History Tobacco Use Types Packs/Day Years [...] CARRILLO - [facility] [address] [facility] [address] [place] [phone] Brenda Clay MD [address] [facility] [address] [place] [address] 04/15/2026 10:00 AM EDT Office Visit [facility] at [facility] [address] [facility] [address] [place] [address] Sena Dominguez PA [address] [facility] [place] [address] documented as of this encounter Visit Diagnoses Not on filedocumented in this encounter Care Teams Manager Meeting Relationship Specialty Start Date End Date Meme Steel MD [address] [place] [address] 105 [place] [address] PCP - General Pediatrics 06/05/18 04/25/22 No Pcp, Pcp PCP - General 06/08/22 07/19/22 Guadalupe Mcbride MD PCP - General Family Medicine 07/20/22 11/01/23 Sena Dominguez PA [address] [place] [address] [place] [address] PCP - BRADY Physician Industrial/Organizational Psychologist 11/02/23 Levy Barry MD [address] [place] [address] [place] [address] PCP - General Family Medicine 12/20/23 documented as of this encounter
--- OUTSIDE RECORDS SUMMARY | 2025-07-28 14:43 | XMS_ITS | Encounter Summary ---
Author Organization [facility] work ([facility]) Address [address] [place] [address] Care Team Providers Care Auto Damage Adjuster Name Role Phone Meme Steel MD Primary Care Provider [phone] Pcp, Pcp Primary Care Provider Unavailabl Guadalupe Bardales MD Primary Care Provider [phone] Sena Dominguez Unavailable [phone] Levy Barry MD Primary Care Provider Unavailab le Source Comments The information that you have received may contain highly confidential and/or federally protected health information. This information has been disclosed to you from records protected by [facility]. The law prohibits you from making [...] please contact the sender immediately.[facility] ([facility]) Encounter Details Date Type Department Care Team (Late st Contact Info) Description 08/13/2013 Historical Note [facility] MoneyExpert System Devyn Vásquez MD [address] [place] [address] [phone] Social History Tobacco Use Types Packs/Day Years [...] Visit LEATHA CARRILLO - [facility] [address] [facility] [address] [place] [phone] Brenda Clay MD [address] [facility] [address] [place] [address] 04/15/2026 10:00 AM EDT Office Visit [facility]HA [facility] [address] [facility] [address] [place] [address] Sena Dominguez PA [address] [facility] [place] [address] documented as of this encounter Visit Diagnoses Not on filedocumented in this encounter Care Teams Auto Damage Adjuster Relationship Specialty Start Date End Date Meme Steel MD [address] [place] [address] [place] [address] PCP - General Pediatrics 06/05/18 04/25/22 No Pcp, Pcp PCP - General 06/08/22 07/19/22 Guadalupe Mcbride MD PCP - General Family Medicine 07/20/22 11/01/23 Sena Dominguez PA [address] [place] [address] [place] [address] PCP - BRADY Physician Night Warehouse Selector 11/02/23 Levy Barry MD [address] [place] [address] [place] [address] PCP - General Family Medicine 12/20/23 documented as of this encounter
--- OUTSIDE RECORDS SUMMARY | 2025-07-28 14:43 | XMS_ITS | Encounter Summary ---
Author Organization [facility] work ([facility]) Address [address] [place] [address] Care Team Providers Care Database Marketing Manager Name Role Phone Meme Steel MD Primary Care Provider No Pcp, Pcp Primary Care Provider Unavailabl Guadalupe Bardales MD Primary Care Provider [phone] eSna Dominguez Unavailable [phone] Levy Barry MD Primary Care Provider Unavailab le Source Comments The information that you have received may contain highly confidential and/or federally protected health information. This information has been disclosed to you from records protected by [facility]. The law prohibits you from [...] contact the sender immediately.[facility] ([facility]) Encounter Details Date Type Department Care Team (Late st Contact Info) Description 01/24/2013 Historical Note [facility] DevZuz System Devyn Vásquez MD [address] [place] [address] [id number] Social History Tobacco Use Types Packs/Day Years [...] Office Visit LEATHA CARRILLO - [facility] [address] [facility] [address] [place] [phone] Brenda Clay MD [address] [facility] [address] [place] [address] 04/15/2026 10:00 AM EDT Office Visit [facility]HA [facility] at [facility] + [facility] [address] [facility] [address] [place] [address] Sena Dominguez PA [address] [facility] [place] [address] documented as of this encounter Visit Diagnoses Not on filedocumented in this encounter Care Teams Database Marketing Manager Relationship Specialty Start Date End Date Meme Steel MD [address] [place] [address] 105 [place] [address] PCP - General Pediatrics 06/05/18 04/25/22 No Pcp, Pcp PCP - General 06/08/22 07/19/22 Guadalupe Mcbride MD PCP - General Family Medicine 07/20/22 11/01/23 Sena Dominguez PA [address] [place] [address] [place] [address] PCP - BRADY Physician Ornamental Metal Worker Helper 11/02/23 Levy Barry MD [address] [place] [address] [place] [address] PCP - General Family Medicine 12/20/23 documented as of this encounter
--- OUTSIDE RECORDS SUMMARY | 2025-07-28 14:43 | XMS_ITS | Encounter Summary ---
Author Organization [facility] work ([facility]) Address [address] [place] [address] Care Team Providers Care Associate Theatre Professor Name Role Phone Meme Steel MD Primary Care Provider [phone] Pcp, Pcp Primary Care Provider Unavailabl Guadalupe Bardales MD Primary Care Provider [phone] Sena Dominguez Unavailable [phone] Levy Barry MD Primary Care Provider Unavailab le Source Comments The information that you have received may contain highly confidential and/or federally protected health information. This information has been disclosed to you from records protected by [facility]. The law prohibits [...] contact the sender immediately.[facility] ([facility]) Encounter Details Date Type Department Care Team (Late st Contact Info) Description 01/14/2013 Historical Note [facility] bfinance [employer] System Devyn Vásquez MD [address] [place] [address] [phone] Social History Tobacco Use Types Packs/Day Years [...] LEATHA CARRILLO - [facility] [address] [facility] [address] [place] [phone] Brenda Clay MD [address] [facility] [address] [place] [address] 04/15/2026 10:00 AM EDT Office Visit [facility]HA [facility] at [facility] + [facility] [address] [facility] [address] [place] [address] Sena Dominguez PA [address] [facility] [place] [address] documented as of this encounter Visit Diagnoses Not on filedocumented in this encounter Care Teams Associate Theatre Professor Relationship Specialty Start Date End Date Meme Steel MD [address] [place] [address] 105 [place] [address] PCP - General Pediatrics 06/05/18 04/25/22 No Pcp, Pcp PCP - General 06/08/22 07/19/22 Guadalupe Mcbride MD PCP - General Family Medicine 07/20/22 11/01/23 Sena Dominguez PA [address] [place] [address] [place] [address] PCP - BRADY Physician Signal Operator Linguist 11/02/23 Levy Barry MD [address] [place] [address] [place] [address] PCP - General Family Medicine 12/20/23 documented as of this encounter
--- OUTSIDE RECORDS SUMMARY | 2025-07-28 14:43 | XMS_ITS | Encounter Summary ---
Author Organization [facility] work ([facility]) Address [address] [place] [address] Care Team Providers Care Html Developer Name Role Phone Meme Steel MD Primary Care Provider [phone] No Pcp, Pcp Primary Care Provider Unavailabl Guadalupe Bardales MD Primary Care Provider [phone] Sena Dominguez Unavailable [phone] Levy Barry MD Primary Care Provider Unavailab le Source Comments The information that you have received may contain highly confidential and/or federally protected health information. This information has been disclosed to you from records protected by [facility]. The law prohibits you from [...] Contact Info) Description 08/13/2013 Historical Note [facility] Redu.us System Devyn Vásquez MD [address] [place] [address] [phone] Social History Tobacco Use Types Packs/Day Years [...] LEATHA CARRILLO - [facility] [address] [facility] [address] [place] [phone] Brenda Clay MD [address] [facility] [address] [place] [address] 04/15/2026 10:00 AM EDT Office Visit [facility]HA [facility] at [facility] + [facility] [address] [facility] [address] [place] [address] Sena Dominguez PA [address] [facility] [place] [address] documented as of this encounter Visit Diagnoses Not on filedocumented in this encounter Care Teams Html Developer Relationship Specialty Start Date End Date Meme Steel MD [address] [place] [address] 105 [place] [address] PCP - General Pediatrics 06/05/18 04/25/22 No Pcp, Pcp PCP - General 06/08/22 07/19/22 Guadalupe Mcbride MD PCP - General Family Medicine 07/20/22 11/01/23 Sena Dominguez PA [address] [place] [address] [place] [address] PCP - BRADY Physician Delivery And Installation Subcontractor 11/02/23 Levy Barry MD [address] [place] [address] [place] [address] PCP - General Family Medicine 12/20/23 documented as of this encounter
--- OUTSIDE RECORDS SUMMARY | 2025-07-28 14:43 | XMS_ITS | Encounter Summary ---
Author Organization [facility] work ([facility]) Address [address] [facility] [address] [place] [address] Care Team Providers Care Flavorer Name Role Phone Meme Steel MD Primary Care Provider [phone] Pcp, Pcp Primary Care Provider Unavailabl Guadalupe Bardales MD Primary Care Provider [phone] Sena Dominguez Unavailable [phone] Levy Barry MD Primary Care Provider Unavailab le Source Comments The information that you have received may contain highly confidential and/or federally protected health information. This information has been disclosed to you from records protected by [facility]. The law prohibits you [...] please contact the sender immediately.[facility] ([facility]) Encounter Details Date Type Department Care Team (Late st Contact Info) Description 01/02/2014 Historical Note [facility] Membersuite System Devyn Vásquez MD [address] [place] [address] [phone] Social History Tobacco Use Types Packs/Day Years [...] CARRILLO - [facility] [address] [facility] [address] [place] [phone] Brenda Clay MD [address] [facility] [address] [place] [address] 04/15/2026 10:00 AM EDT Office Visit [facility]HA [facility] at [facility] + [facility] [address] [facility] [address] [place] [address] Sena Dominguez PA [address] [facility] [place] [address] documented as of this encounter Visit Diagnoses Not on filedocumented in this encounter Care Teams Flavorer Relationship Specialty Start Date End Date Meme Steel MD [address] [place] [address] 105 [place] [address] PCP - General Pediatrics 06/05/18 04/25/22 No Pcp, Pcp PCP - General 06/08/22 07/19/22 Guadalupe Mcbride MD PCP - General Family Medicine 07/20/22 11/01/23 Sena Dominguez PA [address] [place] [address] [place] [address] PCP - BRADY Physician Ditch Tender 11/02/23 Levy Barry MD [address] [place] [address] [place] [address] PCP - General Family Medicine 12/20/23 documented as of this encounter
--- OUTSIDE RECORDS SUMMARY | 2025-07-28 14:43 | XMS_ITS | Encounter Summary ---
Author Organization [facility] work ([facility]) Address [address] [place] [address] Care Team Providers Care Technical Support Coordinator Name Role Phone Meme Steel MD Primary Care Provider [phone] No Pcp, Pcp Primary Care Provider Unavailabl Guadalupe Bardales MD Primary Care Provider [phone] Sena Dominguez Unavailable Levy Barry MD Primary Care Provider Unavailab le Source Comments The information that you have received may contain highly confidential and/or federally protected health information. This information has been disclosed to you from records protected by [facility]. The law prohibits you from making [...] please contact the sender immediately.[facility] ([facility]) Encounter Details Date Type Department Care Team (Late st Contact Info) Description 06/06/2008 Historical Note [facility] Contorion System Devyn Vásquez MD [address] [place] [address] [phone] Social History Tobacco Use Types Packs/Day Years [...] Visit LEATHA CARRILLO - [facility] [address] [facility] [address] [place] [phone] Brenda Clay MD [address] [facility] [address] [place] [phone] 04/15/2026 10:00 AM EDT Office Visit LEATHA [facility] at [facility] [address] [facility] [address] [place] [address] Sena Dominguez PA [address] [facility] [place] [address] documented as of this encounter Visit Diagnoses Not on filedocumented in this encounter Care Teams Technical Support Coordinator Relationship Specialty Start Date End Date Meme Steel MD [address] [place] [address] 105 [place] [address] PCP - General Pediatrics 06/05/18 04/25/22 No Pcp, Pcp PCP - General 06/08/22 07/19/22 Guadalupe Mcbride MD PCP - General Family Medicine 07/20/22 11/01/23 Sena Dominguez PA [address] [place] [address] [place] [address] PCP - BRADY Physician Pediatric Genetic Counselor 11/02/23 Levy Barry MD [address] [place] [address] [place] [address] PCP - General Family Medicine 12/20/23 documented as of this encounter
--- OUTSIDE RECORDS SUMMARY | 2025-07-28 14:43 | XMS_ITS | Encounter Summary ---
Author Organization [facility] work ([facility]) Address [address] [place] [address] Care Team Providers Care Muffler Hand Name Role Phone Meme Steel MD Primary Care Provider [phone] Pcp, Pcp Primary Care Provider Unavailabl Guadalupe Bardales MD Primary Care Provider [phone] Sena Dominguez Unavailable [phone] Levy Barry MD Primary Care Provider Unavailab le Source Comments The information that you have received may contain highly confidential and/or federally protected health information. This information has been disclosed to you from records protected by [facility]. The law prohibits you [...] contact the sender immediately.[facility] ([facility]) Encounter Details Date Type Department Care Team (Late st Contact Info) Description 05/14/2013 Historical Note [facility] Pandabus System Devyn Vásquez MD [address] [place] [address] [phone] Social History Tobacco Use Types Packs/Day Years [...] LEATHA CARRILLO - [facility] [address] [facility] [address] [place] [phone] Brenda Clay MD [address] [facility] [address] [place] [address] 04/15/2026 10:00 AM EDT Office Visit LEATHA [facility] at [facility] + [facility] [address] [facility] [address] [place] [address] Sena Dominguez PA [address] [facility] [place] [address] documented as of this encounter Visit Diagnoses Not on filedocumented in this encounter Care Teams Muffler Hand Relationship Specialty Start Date End Date Meme Steel MD [address] [place] [address] 105 [place] [address] PCP - General Pediatrics 06/05/18 04/25/22 No Pcp, Pcp PCP - General 06/08/22 07/19/22 Guadalupe Mcbride MD PCP - General Family Medicine 07/20/22 11/01/23 Sena Dominguez PA [address] [place] [address] [place] [address] PCP - BRADY Physician Cold Patcher 11/02/23 Levy Barry MD [address] [place] [address] [place] [address] PCP - General Family Medicine 12/20/23 documented as of this encounter
--- OUTSIDE RECORDS SUMMARY | 2025-07-28 14:43 | XMS_ITS | Encounter Summary ---
Author Organization [facility] work ([facility]) Address [address] [place] [address] Care Team Providers Care Computer Support Specialist Name Role Phone Meme Steel MD Primary Care Provider [phone] No Pcp, Pcp Primary Care Provider Unavailabl Guadalupe Bardales MD Primary Care Provider [phone] Sena Dominguez Unavailable [phone] Levy Barry MD Primary Care Provider Unavailab le Source Comments The information that you have received may contain highly confidential and/or federally protected health information. This information has been disclosed to you from records protected by [facility]. The law prohibits you [...] please contact the sender immediately.[facility] ([facility]) Encounter Details Date Type Department Care Team (Late st Contact Info) Description 03/24/2008 Historical Note [facility] Appography System Devyn Vásquez MD [address] [place] [address] [phone] Social History Tobacco Use Types Packs/Day Years [...] LEATHA CARRILLO - [facility] [address] [facility] [address] [place] [phone] Brenda Clay MD [address] [facility] [address] [place] [address] 04/15/2026 10:00 AM EDT Office Visit LEATHA [facility] at [facility] [address] [facility] [address] [place] [address] Sena Dominguez PA [address] [facility] [place] [address] documented as of this encounter Visit Diagnoses Not on filedocumented in this encounter Care Teams Computer Support Specialist Relationship Specialty Start Date End Date Meme Steel MD [address] [place] [address] 105 [place] [address] PCP - General Pediatrics 06/05/18 04/25/22 No Pcp, Pcp PCP - General 06/08/22 07/19/22 Guadalupe Mcbride MD PCP - General Family Medicine 07/20/22 11/01/23 Sena Dominguez PA [address] [place] [address] [place] [address] PCP - BRADY Physician Flue Gas Analyst 11/02/23 Levy Barry MD [address] [place] [address] [place] [address] PCP - General Family Medicine 12/20/23 documented as of this encounter
--- OUTSIDE RECORDS SUMMARY | 2025-07-28 14:43 | XMS_ITS | Encounter Summary ---
Author Organization [facility] work ([facility]) Address [address] [place] [address] Care Team Providers Care Powder And Primer Canning Leader Name Role Phone Meme Steel MD Primary Care Provider [phone] No Pcp, Pcp Primary Care Provider Unavailabl Guadalupe Bardales MD Primary Care Provider [phone] Sena Dominguez Unavailable [phone] Levy Barry MD Primary Care Provider Unavailab le Source Comments The information that you have received may contain highly confidential and/or federally protected health information. This information has been disclosed to you from records protected by [facility]. The law prohibits you from [...] please contact the sender immediately.[facility] ([facility]) Encounter Details Date Type Department Care Team (Late st Contact Info) Description 11/21/2013 Historical Note [facility] [employer] System Devyn Vásquez MD [address] [place] [address] [phone] Social History Tobacco Use Types Packs/Day Years [...] LEATHA CARRILLO - [facility] [address] [facility] [address] [place] [phone] Brenda Clay MD [address] [facility] [address] [place] [address] 04/15/2026 10:00 AM EDT Office Visit LE[facility]HA [facility] at [facility] + [facility] [address] [facility] [address] [place] [address] Sena Dominguez PA [address] [facility] [place] [address] documented as of this encounter Visit Diagnoses Not on filedocumented in this encounter Care Teams Powder And Primer Canning Leader Relationship Specialty Start Date End Date Meme Steel MD [address] [place] [address] 105 [place] [address] PCP - General Pediatrics 06/05/18 04/25/22 No Pcp, Pcp PCP - General 06/08/22 07/19/22 Guadalupe Mcbride MD PCP - General Family Medicine 07/20/22 11/01/23 Sena Dominguez PA [address] [place] [address] [place] [address] PCP - BRADY Physician Repair Specialist 11/02/23 Levy Barry MD [address] [place] [address] [place] [address] PCP - General Family Medicine 12/20/23 documented as of this encounter
--- OUTSIDE RECORDS SUMMARY | 2025-07-28 14:43 | XMS_ITS | Encounter Summary ---
Author Organization [facility] work ([facility]) Address [address] [place] [address] Care Team Providers Care Oceanographic Meteorologist Name Role Phone Meme Steel MD Primary Care Provider [phone] No Pcp, Pcp Primary Care Provider Unavailabl Guadalupe Bardales MD Primary Care Provider [phone] Sena Dominguez Unavailable [phone] Levy Barry MD Primary Care Provider Unavailab le Source Comments The information that you have received may contain highly confidential and/or federally protected health information. This information has been disclosed to you from records protected by [facility]. The law prohibits you [...] sender immediately.[facility] ([facility]) Encounter Details Date Type Department Care Team (Late st Contact Info) Description 03/24/2008 Historical Note [facility] Spartz System Devyn Vásquez MD [address] [place] [address] [phone] Social History Tobacco Use Types Packs/Day Years [...] CARRILLO - [facility] [address] [facility] [address] [place] [phone] Brenda Clay MD [address] [facility] [address] [place] [address] 04/15/2026 10:00 AM EDT Office Visit LEATHA [facility] at [facility] + [facility] [address] [facility] [address] [place] [address] Sena Dominguez PA [address] [facility] [place] [address] documented as of this encounter Visit Diagnoses Not on filedocumented in this encounter Care Teams Oceanographic Meteorologist Relationship Specialty Start Date End Date Meme Steel MD [address] [place] [address] 105 [place] [address] PCP - General Pediatrics 06/05/18 04/25/22 No Pcp, Pcp PCP - General 06/08/22 07/19/22 Guadalupe Mcbride MD PCP - General Family Medicine 07/20/22 11/01/23 Sena Dominguez PA [address] [place] [address] [place] [address] PCP - BRADY Physician Scientific Associate 11/02/23 Levy Barry MD [address] [place] [address] [place] [address] PCP - General Family Medicine 12/20/23 documented as of this encounter
--- OUTSIDE RECORDS SUMMARY | 2025-07-28 14:43 | XMS_ITS | Encounter Summary ---
Author Organization [facility] work ([facility]) Address [address] [place] [address] Care Team Providers Care Roller Pneumatic Name Role Phone Meme Steel MD Primary Care Provider [phone] No Pcp, Pcp Primary Care Provider Unavailabl Guadalupe Bardales MD Primary Care Provider [phone] Sena Dominguez Unavailable [phone] Levy Barry MD Primary Care Provider Unavailab le Source Comments The information that you have received may contain highly confidential and/or federally protected health information. This information has been disclosed to you from records protected by [email or web address]. The law prohibits you from making [...] the sender immediately.[facility] ([facility]) Encounter Details Date Type Department Care Team (Late st Contact Info) Description 11/21/2013 Historical Note [facility] DocTree System Devyn Vásquez MD [address] [place] [address] [phone] Social History Tobacco Use Types Packs/Day Years [...] CARRILLO - [facility] [address] [facility] [address] [place] [phone] Brenda Clay MD [address] [facility] [address] [place] [address] 04/15/2026 10:00 AM EDT Office Visit [facility] + [facility] [address] [facility] [address] [facility] [address] [place] [address] Sena Dominguez PA [address] [facility] [place] [address] documented as of this encounter Visit Diagnoses Not on filedocumented in this encounter Care Teams Roller Pneumatic Relationship Specialty Start Date End Date Meme Steel MD [address] [place] [address] [place] [address] PCP - General Pediatrics 06/05/18 04/25/22 No Pcp, Pcp PCP - General 06/08/22 07/19/22 Guadalupe Mcbride MD PCP - General Family Medicine 07/20/22 11/01/23 Sena Dominguez PA [address] [place] [address] [place] [address] PCP - BRADY Physician Microfiche Duplicator 11/02/23 Levy Barry MD [address] [place] [address] [place] [address] PCP - General Family Medicine 12/20/23 documented as of this encounter
--- OUTSIDE RECORDS SUMMARY | 2025-07-28 14:43 | XMS_ITS | Encounter Summary ---
Author Organization [facility] work ([facility]) Address [address] [place] [address] Care Team Providers Care It Consultant Name Role Phone Meme Steel MD Primary Care Provider [phone] No Pcp, Pcp Primary Care Provider Unavailabl Guadalupe Bardales MD Primary Care Provider [phone] Sena Dominguez Unavailable [phone] Levy Barry MD Primary Care Provider Unavailab le Source Comments The information that you have received may contain highly confidential and/or federally protected health information. This information has been disclosed to you from records protected by [facility]. The law prohibits you [...] error, please contact the sender immediately.[facility] ([facility]) Encounter Details Date Type Department Care Team (Late st Contact Info) Description 11/21/2013 Historical Note [facility] Viewabill System Devyn Vásquez MD [address] [place] [address] [phone] Social History Tobacco Use Types Packs/Day Years [...] CARRILLO - [facility] [address] [facility] [address] [place] [phone] Brenda Clay MD [address] [facility] [address] [place] [address] 04/15/2026 10:00 AM EDT Office Visit [facility] + [facility] [address] [place] [address] Sena Dominguez PA [address] [facility] [place] [address] documented as of this encounter Visit Diagnoses Not on filedocumented in this encounter Care Teams It Consultant Relationship Specialty Start Date End Date Meme Steel MD [address] [place] [address] 105 [place] [address] PCP - General Pediatrics 06/05/18 04/25/22 No Pcp, Pcp PCP - General 06/08/22 07/19/22 Guadalupe Mcbride MD PCP - General Family Medicine 07/20/22 11/01/23 Sena Dominguez PA [address] [place] [address] [place] [address] PCP - BRADY Physician Hedis Registered Nurse Rn 11/02/23 Levy Barry MD [address] [place] [address] [place] [address] PCP - General Family Medicine 12/20/23 documented as of this encounter
--- OUTSIDE RECORDS SUMMARY | 2025-07-28 14:43 | XMS_ITS | Encounter Summary ---
Author Organization [facility] work ([facility]) Address [address] [place] [address] Care Team Providers Care Supreme Court Judge Name Role Phone Meme Steel MD Primary Care Provider [phone] No Pcp, Pcp Primary Care Provider Unavailabl Guadalupe Bardales MD Primary Care Provider [phone] Sena Dominguez Unavailable [phone] Levy Barry MD Primary Care Provider Unavailab le Source Comments The information that you have received may contain highly confidential and/or federally protected health information. This information has been disclosed to you from records protected by [facility]. The law prohibits you from making any [...] contact the sender immediately.[facility] ([facility]) Encounter Details Date Type Department Care Team (Late st Contact Info) Description 01/02/2014 Historical Note [facility] Airpush System Devyn Vásquez MD [address] [place] [address] [phone] Social History Tobacco Use Types Packs/Day Years [...] Office Visit LEATHA CARRILLO - [facility] [address] [facility] [address] [place] [phone] Brenda Clay MD [address] [facility] [address] [place] [address] 04/15/2026 10:00 AM EDT Office Visit [facility] [address] [facility] [address] [place] [address] Sena Dominguez PA [address] [facility] [place] [address] documented as of this encounter Visit Diagnoses Not on filedocumented in this encounter Care Teams Supreme Court Judge Relationship Specialty Start Date End Date Meme Steel MD [address] [place] [address] 105 [place] [address] PCP - General Pediatrics 06/05/18 04/25/22 No Pcp, Pcp PCP - General 06/08/22 07/19/22 Guadalupe Mcbride MD PCP - General Family Medicine 07/20/22 11/01/23 Sena Dominguez PA [address] [place] [address] [place] [address] PCP - BRADY Physician Endoscopy Support Specialist 11/02/23 Levy Barry MD [address] [place] [address] [place] [address] PCP - General Family Medicine 12/20/23 documented as of this encounter
--- OUTSIDE RECORDS SUMMARY | 2025-07-28 14:43 | XMS_ITS | Encounter Summary ---
Author Organization [facility] work ([facility] Address [address] [place] [address] Care Team Providers Care Service Planner Name Role Phone Meme Steel MD Primary Care Provider No Pcp, Pcp Primary Care Provider Unavailabl Guadalupe Bardales MD Primary Care Provider [phone] Sena Dominguez Unavailable [phone] Levy Barry MD Primary Care Provider Unavailab le Source Comments The information that you have received may contain highly confidential and/or federally protected health information. This information has been disclosed to you from records protected by [facility]. The law prohibits you [...] please contact the sender immediately.[facility] ([facility] Encounter Details Date Type Department Care Team (Late st Contact Info) Description 10/07/2014 Historical Note [facility] Identify System Devyn Vásquez MD [address] [place] [address] [phone] Social History Tobacco Use Types Packs/Day Years [...] CARRILLO - [facility] [address] [facility] [address] [place] [phone] Brenda Clay MD [address] [facility] [address] [place] [address] 04/15/2026 10:00 AM EDT Office Visit [facility]HA [facility] at [facility] [address] [facility] [address] [place] [address] Sena Dominguez PA [address] [facility] [place] [address] documented as of this encounter Visit Diagnoses Not on filedocumented in this encounter Care Teams Service Planner Relationship Specialty Start Date End Date Meme Steel MD [address] [place] [address] 105 [place] [address] PCP - General Pediatrics 06/05/18 04/25/22 No Pcp, Pcp PCP - General 06/08/22 07/19/22 Guadalupe Mcbride MD PCP - General Family Medicine 07/20/22 11/01/23 eSna Dominguez PA [address] [place] [address] [place] [address] PCP - BRADY Physician Furnishings Conservator 11/02/23 Levy Barry MD [address] [place] [address] [place] [address] PCP - General Family Medicine 12/20/23 documented as of this encounter
--- OUTSIDE RECORDS SUMMARY | 2025-07-28 14:43 | XMS_ITS | Encounter Summary ---
Author Organization [facility] work ([facility]) Address [address] [place] [address] Care Team Providers Care Assistant Women'S Tennis Coach Name Role Phone Meme Steel MD Primary Care Provider [phone] No Pcp, Pcp Primary Care Provider Unavailabl Guadalupe Bardales MD Primary Care Provider Sena Dominguez Unavailable [phone] Levy Barry MD Primary Care Provider Unavailab le Source Comments The information that you have received may contain highly confidential and/or federally protected health information. This information has been disclosed to you from records protected by [facility]. The law prohibits you from [...] the sender immediately.[facility] ([facility]) Encounter Details Date Type Department Care Team (Late st Contact Info) Description 11/21/2013 Historical Note [facility] Tangoe System Devyn Vásquez MD [address] [place] [address] [phone] Social History Tobacco Use Types Packs/Day Years [...] Visit LEATHA CARRILLO - [facility] [address] [facility] [address] [place] [phone] Brenda Clay MD [address] [facility] [address] [place] [address] 04/15/2026 10:00 AM EDT Office Visit [facility] [address] [facility] [address] [place] [address] Sena Dominguez PA [address] [facility] [place] [address] documented as of this encounter Visit Diagnoses Not on filedocumented in this encounter Care Teams Assistant Women'S Tennis Coach Relationship Specialty Start Date End Date Meme Steel MD [address] [place] [address] 105 [place] [address] PCP - General Pediatrics 06/05/18 04/25/22 No Pcp, Pcp PCP - General 06/08/22 07/19/22 Guadalupe Mcbride MD PCP - General Family Medicine 07/20/22 11/01/23 Sena Dominguez PA [address] [place] [address] [place] [address] PCP - BRADY Physician Hawk Missile System Crewmember 11/02/23 Levy Barry MD [address] [place] [address] [place] [address] PCP - General Family Medicine 12/20/23 documented as of this encounter
--- OUTSIDE RECORDS SUMMARY | 2025-07-28 14:43 | XMS_ITS | Encounter Summary ---
Author Organization [facility] work ([facility]) Address [address] [place] [address] Care Team Providers Care Tobacco Hanger Name Role Phone Meme Steel MD Primary Care Provider [phone] No Pcp, Pcp Primary Care Provider Unavailabl Guadalupe Bardales MD Primary Care Provider [phone] Sena Dominguez Unavailable [phone] Levy Barry MD Primary Care Provider Unavailab le Source Comments The information that you have received may contain highly confidential and/or federally protected health information. This information has been disclosed to you from records protected by [facility]. The law prohibits you [...] error, please contact the sender immediately.[facility] ([facility]) Encounter Details Date Type Department Care Team (Late st Contact Info) Description 11/21/2013 Historical Note [facility] SmartyPants Vitamins System Devyn Vásquez MD [address] [place] [address] [phone] Social History Tobacco Use Types Packs/Day Years [...] - [facility] at [facility] [address] [facility] [address] [place] [phone] Brenda Clay MD [address] [facility] [address] [place] [phone] 04/15/2026 10:00 AM EDT Office Visit [facility]HA [facility] at [facility] [address] [facility] [address] [place] [phone] Sena Dominguez PA [address] [facility] [place] [address] documented as of this encounter Visit Diagnoses Not on filedocumented in this encounter Care Teams Tobacco Hanger Relationship Specialty Start Date End Date Meme Steel MD [address] [place] [address] 105 [place] [address] PCP - General Pediatrics 06/05/18 04/25/22 No Pcp, Pcp PCP - General 06/08/22 07/19/22 Guadalupe Mcbride MD PCP - General Family Medicine 07/20/22 11/01/23 Sena Dominguez PA [address] [place] [address] [place] [address] PCP - BRADY Physician Fingerprinter 11/02/23 Levy Barry MD [address] [place] [address] [place] [address] PCP - General Family Medicine 12/20/23 documented as of this encounter
--- OUTSIDE RECORDS SUMMARY | 2025-07-28 14:43 | XMS_ITS | Encounter Summary ---
Author Organization [facility] work ([facility]) Address [address] [place] [address] Care Team Providers Care Frame And Scrap Crusher Name Role Phone Meme Steel MD Primary Care Provider [phone] No Pcp, Pcp Primary Care Provider Unavailabl Guadalupe Bardales MD Primary Care Provider [phone] Sena Dominguez Unavailable [phone] Levy Barry MD Primary Care Provider Unavailab le Source Comments The information that you have received may contain highly confidential and/or federally protected health information. This information has been disclosed to you from records protected by [facility]. The law prohibits you [...] please contact the sender immediately.[facility] ([facility]) Encounter Details Date Type Department Care Team (Late st Contact Info) Description 01/14/2013 Historical Note [facility] LightSquared System Devyn Vásquez MD [address] [place] [address] [phone] Social History Tobacco Use Types Packs/Day Years [...] CARRILLO - [facility] [address] [facility] [address] [place] [phone] Brenda Clay MD [address] [facility] [address] [place] [address] 04/15/2026 10:00 AM EDT Office Visit [facility]ATHA [facility] at [facility] + [facility] [address] [facility] [address] [place] [address] Sena Dominguez PA [address] [facility] [place] [address] documented as of this encounter Visit Diagnoses Not on filedocumented in this encounter Care Teams Frame And Scrap Crusher Relationship Specialty Start Date End Date Meme Steel MD [address] [place] [address] 105 [place] [address] PCP - General Pediatrics 06/05/18 04/25/22 No Pcp, Pcp PCP - General 06/08/22 07/19/22 Guadalupe Mcbride MD PCP - General Family Medicine 07/20/22 11/01/23 Sena Dominguez PA [address] [place] [address] [place] [address] PCP - BRADY Physician Grey Inspector 11/02/23 Levy Barry MD [address] [place] [address] [place] [address] PCP - General Family Medicine 12/20/23 documented as of this encounter
--- OUTSIDE RECORDS SUMMARY | 2025-07-28 14:43 | XMS_ITS | Encounter Summary ---
Author Organization [facility] work ([facility]) Address [address] [place] [address] Care Team Providers Care Picture Frame Maker Name Role Phone Meme Steel MD Primary Care Provider [phone] No Pcp, Pcp Primary Care Provider Unavailabl Guadalupe Bardales MD Primary Care Provider [phone] Sena Dominguez Unavailable Levy Barry MD Primary Care Provider Unavailab le Source Comments The information that you have received may contain highly confidential and/or federally protected health information. This information has been disclosed to you from records protected by [facility]. The law prohibits you [...] immediately.[facility] ([facility]) Encounter Details Date Type Department Care Team (Late st Contact Info) Description 09/17/2013 Historical Note [facility] TIO Networks System Devyn Vásquez MD [address] [place] [address] [phone] Social History Tobacco Use Types Packs/Day Years [...] Visit LEATHA CARRILLO - [facility] [address] [facility] [address] [place] [phone] Brenda Clay MD [address] [facility] [address] [place] [address] 04/15/2026 10:00 AM EDT Office Visit LEATHA [facility] at [facility] [address] [facility] [address] [place] [address] Sena Dominguez PA [address] [facility] [place] [address] documented as of this encounter Visit Diagnoses Not on filedocumented in this encounter Care Teams Picture Frame Maker Relationship Specialty Start Date End Date Meme Steel MD [address] [place] [address] 105 [place] [address] PCP - General Pediatrics 06/05/18 04/25/22 No Pcp, Pcp PCP - General 06/08/22 07/19/22 Guadalupe Mcbride MD PCP - General Family Medicine 07/20/22 11/01/23 Sena Dominguez PA [address] [place] [address] [place] [address] PCP - BRADY Physician Child Custody Evaluator 11/02/23 Levy Barry MD [address] [place] [address] [place] [address] PCP - General Family Medicine 12/20/23 documented as of this encounter
--- OUTSIDE RECORDS SUMMARY | 2025-07-28 14:43 | XMS_ITS | Encounter Summary ---
Author Organization [facility] work ([facility]) Address [address] [place] [address] Care Team Providers Care Litigation Claim Representative Name Role Phone Meme Steel MD Primary Care Provider [phone] No Pcp, Pcp Primary Care Provider Unavailabl Guadalupe Bardales MD Primary Care Provider [phone] Sena Dominguez Unavailable Levy Barry MD Primary Care Provider Unavailab le Source Comments The information that you have received may contain highly confidential and/or federally protected health information. This information has been disclosed to you from records protected by [facility]. The law prohibits you from [...] the sender immediately.[facility] ([facility]) Encounter Details Date Type Department Care Team (Late st Contact Info) Description 11/07/2014 Historical Note [facility] Food Runner System Devyn Vásquez MD [address] [place] [address] [phone] Social History Tobacco Use Types Packs/Day Years [...] LEATHA CARRILLO - [facility] [address] [facility] [address] [place] [phone] Brenda Clay MD [address] [facility] [address] [place] [phone] 04/15/2026 10:00 AM EDT Office Visit LE[facility]HA [facility] at [facility] + [facility] [address] [facility] [address] [place] [address] Sena Dominguez PA [address] [facility] [place] [address] documented as of this encounter Visit Diagnoses Not on filedocumented in this encounter Care Teams Litigation Claim Representative Relationship Specialty Start Date End Date Meme Steel MD [address] [place] [address] 105 [place] [address] PCP - General Pediatrics 06/05/18 04/25/22 No Pcp, Pcp PCP - General 06/08/22 07/19/22 Guadalupe Mcbride MD PCP - General Family Medicine 07/20/22 11/01/23 Sena Dominguez PA [address] [place] [address] [place] [address] PCP - BRADY Physician Glue Specialty Supervisor 11/02/23 Levy Barry MD [address] [place] [address] [place] [address] PCP - General Family Medicine 12/20/23 documented as of this encounter
--- OUTSIDE RECORDS SUMMARY | 2025-07-28 14:43 | XMS_ITS | Clinical Summary ---
Author Organization [facility] work ([facility]) Address [address] [place] [address] Care Team Providers Care Gauge Machine Operator Name Role Phone Sena Dominguez Unavailable [phone] Levy Barry MD Primary Care Provider Unavailab le Source Comments The information that you have received may contain highly confidential and/or federally protected health information. This information has been disclosed to you from records protected by marker.to. 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 1 01/31/2025 Alcohol and Drug Use [...] LEATHA CARRILLO - [facility] [address] [place] [address] Brenda Clay MD [address] [place] [address] [place] [address] 04/15/2026 10:00 AM EDT Office Visit LEATHA Primary Care at [facility] + [address] [place] [address] Sena Dominguez PA [address] [facility] [place] [phone] Health Maintenance Due Date Last Done Comments [...] lest 1 x week for 10 minutes (intermediate accountant goal of 150 minutes planned movement weekly) [...] ORDERABLES Final R esult [facility] [address] [place] [address] [place] [address] [facility] [address] [place] [address] [place] [address] * (ABNORMAL) Lipid panel w/Reflex to Direct LDL (07/05/2025 10:34 AM EDT) Cholesterol 192 <200 mg/dL [facility] HDL Cholesterol 62 > OR = 50 mg/dL [facility] Triglycerides 81 <150 mg/dL [facility] LDL Cholesterol, Calculated 112(H) mg/dL (calc) [facility] Comment: Reference range: <100 Desirable range <100 mg/dL for primary prevention; <70 mg/dL for patients with CHD or diabetic patients with > or = 2 CHD risk factors. LDL-C is now calculated using the Madelyn calculation, which is a validated novel method providing better accuracy than the Friedewald equation in the estimation of LDL-C. Antoine SS et al. DEBORA. 2013;310(94): 9118-0359 (http://education.MyLorry/faq/JWY110) Cholesterol/HDL Ratio 3.1 <5.0 (calc) [facility] NON-HDL CHOLESTEROL 130(H) <130 mg/dL (calc) [facility] Comment: For patients with diabetes plus [...] ORDERABLES Final R esult [facility] [address] [place] [address] [place] [address] [facility] [address] [place] [address] [place] [phone] * Comprehensive metabolic panel (07/05/2025 10:34 AM EDT) [facility] Glucose 80 65 - 99 mg/dL [facility] Comment: Fasting reference interval BUN 9 7 - 25 mg/dL [facility] Creatinine 0.64 0.50 - 0.96 mg/dL [facility] EGFR 129 > OR = 60 mL/min/1. 73m2 [facility] BUN/Creatinine Ratio SEE NOTE: 6 - 22 (calc) [facility] Comment: Not Reported: BUN and Creatinine are within reference range. Sodium 138 135 - 146 mmol/L [facility] Potassium 4.5 3.4 - 4.8 mmol/L [facility] Chloride 107 98 - 110 mmol/L [facility] CO2 23 20 - 32 mmol/L [facility] Calcium 9.0 8.6 - 10.2 mg/dL [facility] Total Protein 7.3 6.4 - 8.4 g/dL [facility] Albumin 3.8 3.6 - 5.1 g/dL [facility] Globulin, Calculated 3.5 2.2 - 4.0 g/dL (calc) [facility] ALBUMIN/GLOBULI N RATIO 1.1 0.9 - 2.3 (calc) [facility] Total Bilirubin 0.3 0.2 - 1.2 mg/dL [facility] Alkaline Phosphatase 91 31 - 125 U/L [facility] AST 20 10 - 30 U/L [facility] ALT 16 6 - 29 U/L [facility] Blood Blood specimen / Unknown 07/05/2025 10:34 AM EDT 07/05/2025 10:34 AM EDT Narrative [facility] - 07/05/2025 6:11 PM EDT 1 OF 2 REQS FASTING:YES FASTING: YES us Holly VÁZQUEZ LAB BLOOD ORDERABLES Final R esult [facility] [address] [place] [address] [place] [address] [facility] [address] [place] [address] [place] [phone] from Last 3 Months Insurance [facility] [place] [facility] [place] Care Teams Gauge Machine Operator Relationship Specialty Start Date End Date Sena Dominguez PA [address] [facility] [place] [phone] PCP - BRADY Physician Sack Cleaner 11/02/23 Levy Barry MD [address] [facility] [place] [address] PCP - General Family Medicine 12/20/23
--- OUTSIDE RECORDS SUMMARY | 2025-07-28 14:43 | XMS_ITS | Encounter Summary ---
Author Organization [facility] work ([facility]) Address [address] [place] [address] Care Team Providers Care Fruit Washer Name Role Phone Meme Steel MD Primary Care Provider [phone] Pcp, Pcp Primary Care Provider Unavailabl Guadalupe Bardales MD Primary Care Provider [phone] Sena Dominguez Unavailable [phone] Levy Barry MD Primary Care Provider Unavailab le Source Comments The information that you have received may contain highly confidential and/or federally protected health information. This information has been disclosed to you from records protected by [facility]. The law [...] the sender immediately.[facility] ([facility]) Encounter Details Date Type Department Care Team (Late st Contact Info) Description 09/17/2013 Historical Note [facility] Devyn Vásquez MD [address] [place] [address] [phone] Social History Tobacco Use Types Packs/Day Years [...] - [facility] [address] [place] [phone] Brenda Clay MD [address] [facility] [place] [address] [place] [phone] 04/15/2026 10:00 AM EDT Office Visit LEATHA [facility] + [facility] [address] [place] [address] Sena Dominguez PA [address] [facility] [place] [address] documented as of this encounter Visit Diagnoses Not on filedocumented in this encounter Care Teams Fruit Washer Relationship Specialty Start Date End Date Meme Steel MD [address] [place] [address] [place] [address] PCP - General Pediatrics 06/05/18 04/25/22 No Pcp, Pcp PCP - General 06/08/22 07/19/22 Guadalupe Mcbride MD PCP - General Family Medicine 07/20/22 11/01/23 Sena Dominguez PA [address] [place] [address] [place] [address] PCP - BRADY Physician Beater Head 11/02/23 Levy Barry MD [address] [place] [address] [place] [address] PCP - General Family Medicine 12/20/23 documented as of this encounter
--- OUTSIDE RECORDS SUMMARY | 2025-07-28 14:43 | XMS_ITS | Encounter Summary ---
Author Organization [facility] work ([facility]) Address [address] [place] [address] Care Team Providers Care Lunch Cook Name Role Phone Meme Steel MD Primary Care Provider [phone] Pcp, Pcp Primary Care Provider Unavailabl Guaadlupe Bardales MD Primary Care Provider [phone] Sena Dominguez Unavailable [phone] Levy Barry MD Primary Care Provider Unavailab le Source Comments The information that you have received may contain highly confidential and/or federally protected health information. This information has been disclosed to you from records protected by [facility]. The law prohibits you from [...] please contact the sender immediately.[facility] ([facility]) Encounter Details Date Type Department Care Team (Late st Contact Info) Description 09/22/2014 Historical Note [facility] Inf[employer] [facility] Devyn Vásquez MD [address] [place] [phone] Social History Tobacco Use Types Packs/Day Years [...] - [facility] [address] [place] [phone] Brenda Clay MD [address] [facility] [place] [address] [place] [address] 04/15/2026 10:00 AM EDT Office Visit LEATHA Primary [facility] at [facility] [address] [place] [address] Sena Dominguez PA [address] [place] [address] documented as of this encounter Visit Diagnoses Not on filedocumented in this encounter Care Teams Lunch Cook Relationship Specialty Start Date End Date Meme Steel MD [address] [place] [address] [place] [address] PCP - General Pediatrics 06/05/18 04/25/22 No Pcp, Pcp PCP - General 06/08/22 07/19/22 Guadalupe Mcbride MD PCP - General Family Medicine 07/20/22 11/01/23 Sena Dominguez PA [address] [place] [address] [place] [address] PCP - BRADY Physician Miller Kiln Dried Salt 11/02/23 Levy Barry MD [address] [place] [address] [place] [address] PCP - General Family Medicine 12/20/23 documented as of this encounter
--- OUTSIDE RECORDS SUMMARY | 2025-07-28 14:43 | XMS_ITS | Encounter Summary ---
Author Organization [facility] work ([facility]) Address [address] [place] [address] Care Team Providers Care Mobility Architect Manager Name Role Phone Meme Steel MD Primary Care Provider [phone] No Pcp, Pcp Primary Care Provider Unavailabl Guadalupe Bardales MD Primary Care Provider [phone] Sena Dominguez Unavailable [phone] Levy Barry MD Primary Care Provider Unavailab le Source Comments The information that you have received may contain highly confidential and/or federally protected health information. This information has been disclosed to you from records protected by [facility]. The law prohibits you [...] sender immediately.[facility] ([facility]) Encounter Details Date Type Department Care Team (Late st Contact Info) Description 05/14/2013 Historical Note [facility] [employer] System Devyn Vásquez MD [address] [place] [id number] Social History Tobacco Use Types Packs/Day Years [...] CARRILLO - [facility] [address] [facility] [address] [place] [phone] Brenda Clay MD [address] [facility] [place] [address] [place] [phone] 04/15/2026 10:00 AM EDT Office Visit LEATHA Primary Care at [facility] + [facility] [address] [facility] [address] [place] [phone] Sena Dominguez PA [address] [facility] [place] [address] documented as of this encounter Visit Diagnoses Not on filedocumented in this encounter Care Teams Mobility Architect Manager Relationship Specialty Start Date End Date Meme Steel MD [address] [place] [address] [place] [address] PCP - General Pediatrics 06/05/18 04/25/22 No Pcp, Pcp PCP - General 06/08/22 07/19/22 Guadalupe Mcbride MD PCP - General Family Medicine 07/20/22 11/01/23 Sena Dominguez PA [address] [place] [address] [place] [address] PCP - BRADY Physician Electrical And Radio Aircraft Mechanic 11/02/23 Levy Barry MD [address] [place] [address] [place] [address] PCP - General Family Medicine 12/20/23 documented as of this encounter
--- OUTSIDE RECORDS SUMMARY | 2025-07-28 14:43 | XMS_ITS | Encounter Summary ---
Author Organization [facility] work ([facility]) Address [address] [place] [address] Care Team Providers Care Ax Survey Worker Name Role Phone Meme Steel MD Primary Care Provider [phone] No Pcp, Pcp Primary Care Provider Unavailabl Guadalupe Bardales MD Primary Care Provider [phone] Sena Dominguez Unavailable [phone] Levy Barry MD Primary Care Provider Unavailab le Source Comments The information that you have received may contain highly confidential and/or federally protected health information. This information has been disclosed to you from records protected by [facility]. The law prohibits you from making [...] sender immediately.[facility] ([facility]) Encounter Details Date Type Department Care Team (Late st Contact Info) Description 08/14/2013 Historical Note [facility] ApeniMED System Devyn Vásquez MD [address] [place] [id number] Social History Tobacco Use Types Packs/Day Years [...] LEATHA CARRILLO - [facility] at [facility] [address] [place] [phone] Brenda Clay MD [address] [facility] [place] [address] [place] [phone] 04/15/2026 10:00 AM EDT Office Visit LEATHA Primary Care at [facility] + [facility] [address] [facility] [place] [facility] [address] [place] [address] Sena Dominguez PA [address] [facility] [place] [facility] [place] [address] documented as of this encounter Visit Diagnoses Not on filedocumented in this encounter Care Teams Ax Survey Worker Relationship Specialty Start Date End Date Meme Steel MD [address] [place] [address] [place] [address] PCP - General Pediatrics 06/05/18 04/25/22 No Pcp, Pcp PCP - General 06/08/22 07/19/22 Guadalupe Mcbride MD PCP - General Family Medicine 07/20/22 11/01/23 Sena Dominguez PA [address] [place] [address] [place] [address] PCP - BRADY Physician R D Intern 11/02/23 Levy Barry MD [address] [place] [address] [place] [address] PCP - General Family Medicine 12/20/23 documented as of this encounter
== END 2025-07-28 12:04 | disposition home or self-care (01) ==
LOC: HO.HOS 10:57
PROVIDERS: Visit Provider Physician Assistant
DX: S82.831A Other fracture of upper and lower end of right fibula, initial encounter for closed fracture (principal)
CPT/HCPCS: 29515; 99204

== ENCOUNTER → 2025-07-28 10:56 | Outpatient (BNVA) | payer OTHER, SELFPAY | PROVIDERS: Visit Provider Physician Assistant | DX: S82.831A Other fracture of upper and lower end of right fibula, initial encounter for closed fracture (principal) | CPT/HCPCS: 29515 ==

== ENCOUNTER 2025-07-31 10:10 | Outpatient (AMB) | payer OTHER, SELFPAY ==
[2025-07-31 11:26] VITALS: BMI 45.2
--- NOTE | 2025-07-31 11:26 | MHC.OFFVIS ---
Vital Signs 07/31/25 11:26 Height 5 ft 6 in Weight 280 lb BMI 45.2 Intake Visit Reasons: OV-RT Closed fibular Fx, DOI 07/25/25-splint change Intake Note: Kimber 20 yr old female presents today for a splint change for her right fibular fracture, DOI 07/25/25. STates she feels like the padding has rolled up and is having heel pain. Allergies No Known Allergies Allergy (Verified 07/31/25 11:27) HPI HPI OV-RT Closed fibular Fx, DOI 07/25/25-splint change: Details: Ms. Nath this 20-year-old female who presents to the office today for a right posterior short-leg splint change. She reports that she is having a burning pain in the heel and would like it changed. She is pending right ankle ORIF on 08-05-[address] Fernández. 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 Sensation is intact. Pedal pulse intact. Psych Appearance: grossly normal Mental Status: mental status grossly normal Attitude: cooperative Office Procedures Casting/Splints [id number] Leg splint application Procedure code (CPT) selection complete Assessment & Plan Assessment & Plan (1) Closed fracture of right distal fibula: Code(s): S82.831A - Other fracture of upper and lower end of right fibula, initial encounter for closed fracture Category: Medical Plan While the office today, the patient was placed in a new custom molded posterior splint on the right lower extremity. Patient was educated on splint maintenance and instructed to keep the cast clean, dry, and intact. However, should the splint become wet, dirty, damaged, or there are any concerns please call the office immediately for a splint change. Coding Level of Care Code Est Pt Level 3 (36495) Diagnoses Closed fracture of right distal fibula S82.831A CPT Codes Splint - CPT: 43407-Nfwhm Leg splint application ([id number])
--- OUTSIDE RECORDS SUMMARY | 2025-07-31 12:02 | XMS_ITS | Encounter Summary ---
Author Organization [facility] work ([facility]) Address [address] [place] [address] Care Team Providers Care Relationship Assoc Name Role Phone Meme Steel MD Primary Care Provider [phone] Pcp, Pcp Primary Care Provider Unavailabl Guadalupe Bardales MD Primary Care Provider [phone] Sena Dominguez Unavailable [phone] Levy Barry MD Primary Care Provider Unavailab le Source Comments The information that you have received may contain highly confidential and/or federally protected health information. This information has been disclosed to you from records protected by [facility]. The law prohibits you from making [...] contact the sender immediately.[facility] ([facility]) Encounter Details Date Type Department Care Team (Late st Contact Info) Description 2004 Historical Note [facility] [employer]-Side [employer] System Devyn Vásquez MD [address] [place] [address] [phone] Social History Tobacco Use Types Packs/Day Years [...] CARRILLO - [facility] [address] [facility] [address] [place] [phone] Brenda Clay MD [address] [facility] [address] [place] [address] 04/15/2026 10:00 AM EDT Office Visit [facility]ATHA [facility] at [facility] + [facility] [address] [facility] [address] [place] [address] Sena Dominguez PA [address] [facility] [place] [address] documented as of this encounter Visit Diagnoses Not on filedocumented in this encounter Care Teams Relationship Assoc Relationship Specialty Start Date End Date Meme Steel MD [address] [place] [address] [place] [address] PCP - General Pediatrics 06/05/18 04/25/22 No Pcp, Pcp PCP - General 06/08/22 07/19/22 Guadalupe Mcbride MD PCP - General Family Medicine 07/20/22 11/01/23 Sena Dominguez PA [address] [place] [address] [place] [address] PCP - BRADY Physician Automation Lead 11/02/23 Levy Barry MD [address] [place] [address] [place] [address] PCP - General Family Medicine 12/20/23 documented as of this encounter
--- OUTSIDE RECORDS SUMMARY | 2025-07-31 12:02 | XMS_ITS | Encounter Summary ---
Author Organization [facility] work ([facility]) Address [address] [facility] [address] [facility] [address] [place] [address] Care Team Providers Care Managing Editor Name Role Phone Meme Steel MD Primary Care Provider [phone] Pcp, Pcp Primary Care Provider Unavailabl Guadalupe Bardales MD Primary Care Provider [phone] Sena Dominguez Unavailable [phone] Levy Barry MD Primary Care Provider Unavailab le Source Comments The information that you have received may contain highly confidential and/or federally protected health information. This information has been disclosed to you from records protected by [facility]. The [...] sender immediately.[facility] ([facility]) Encounter Details Date Type Department Care Team (Late st Contact Info) Description 2004 Historical Note SVMG [employer] System Devyn Vásquez MD [address] [place] [address] [phone] Social History Tobacco Use Types Packs/Day Years [...] Visit LEATHA CARRILLO - [facility] [address] [facility] [address] [place] [phone] Brenda Clay MD [address] [facility] [address] [place] [address] 04/15/2026 10:00 AM EDT Office Visit [facility]HA [facility] at [facility] + [facility] [address] [facility] [address] [place] [address] Sena Dominguez PA [address] [facility] [place] [address] documented as of this encounter Visit Diagnoses Not on filedocumented in this encounter Care Teams Managing Editor Relationship Specialty Start Date End Date Meme Steel MD [address] [place] [address] [place] [address] PCP - General Pediatrics 06/05/18 04/25/22 No Pcp, Pcp PCP - General 06/08/22 07/19/22 Guadalupe Mcbride MD PCP - General Family Medicine 07/20/22 11/01/23 Sena Dominguez PA [address] [place] [address] [place] [address] PCP - BRDAY Physician Patient Financial Coordinator 11/02/23 Levy Barry MD [address] [place] [address] [place] [address] PCP - General Family Medicine 12/20/23 documented as of this encounter
--- OUTSIDE RECORDS SUMMARY | 2025-07-31 12:02 | XMS_ITS | Encounter Summary ---
Author Organization [facility] work ([facility]) Address [address] [place] [address] Care Team Providers Care Information Resources Director Name Role Phone Meme Steel MD Primary Care Provider [phone] Pcp, Pcp Primary Care Provider Unavailabl Guadalupe Bardales MD Primary Care Provider [phone] Sena Dominguez Unavailable [phone] Levy Barry MD Primary Care Provider Unavailab le Source Comments The information that you have received may contain highly confidential and/or federally protected health information. This information has been disclosed to you from records protected by [facility]. The law prohibits you from making [...] contact the sender immediately.[facility] ([facility]) Encounter Details Date Type Department Care Team (Late st Contact Info) Description 2004 Historical Note [facility] [employer] System Devyn Vásquez MD [address] [place] [address] [phone] Social History Tobacco Use Types Packs/Day Years [...] CARRILLO - [facility] [address] [facility] [address] [place] [phone] Brenda Clay MD [address] [facility] [address] [place] [phone] 04/15/2026 10:00 AM EDT Office Visit [facility]HA Primary [facility] at [facility] + [facility] [address] [facility] [address] [place] [address] Sena Dominguez PA [address] [facility] [place] [address] documented as of this encounter Visit Diagnoses Not on filedocumented in this encounter Care Teams Information Resources Director Relationship Specialty Start Date End Date Meme Steel MD [address] [place] [address] 105 [place] [address] PCP - General Pediatrics 06/05/18 04/25/22 No Pcp, Pcp PCP - General 06/08/22 07/19/22 Guadalupe Mcbride MD PCP - General Family Medicine 07/20/22 11/01/23 Sena Dominguez PA [address] [place] [address] [place] [address] PCP - BRADY Physician Photographer Aerial 11/02/23 Levy Barry MD [address] [place] [address] [place] [address] PCP - General Family Medicine 12/20/23 documented as of this encounter
--- OUTSIDE RECORDS SUMMARY | 2025-07-31 12:02 | XMS_ITS | Encounter Summary ---
Author Organization [facility] work ([facility]) Address [address] [place] [address] Care Team Providers Care Preparer Samples And Repairs Name Role Phone Meme Steel MD Primary Care Provider [phone] Pcp, Pcp Primary Care Provider Unavailabl Guadalupe Bardales MD Primary Care Provider [phone] Sena Dominguez Unavailable [phone] Levy Barry MD Primary Care Provider Unavailab le Source Comments The information that you have received may contain highly confidential and/or federally protected health information. This information has been disclosed to you from records protected by [facility]. The law prohibits you [...] please contact the sender immediately.[facility] ([facility]) Encounter Details Date Type Department Care Team (Late st Contact Info) Description 2004 Historical Note [facility] Sequent System Devyn Vásquez MD [address] [place] [address] [phone] Social History Tobacco Use Types Packs/Day Years [...] LEATHA CARRILLO - [facility] [address] [facility] [address] [place] [phone] Brenda Clay MD [address] [facility] [address] [place] [address] 04/15/2026 10:00 AM EDT Office Visit [facility]HA Primary [facility] at [facility] + [facility] [address] [facility] [address] [place] [address] Sena Dominguez PA [address] [facility] [place] [address] documented as of this encounter Visit Diagnoses Not on filedocumented in this encounter Care Teams Preparer Samples And Repairs Relationship Specialty Start Date End Date Meme Steel MD [address] [place] [address] 105 [place] [address] PCP - General Pediatrics 06/05/18 04/25/22 No Pcp, Pcp PCP - General 06/08/22 07/19/22 Guadalupe Mcbride MD PCP - General Family Medicine 07/20/22 11/01/23 Sena Dominguez PA [address] [place] [address] [place] [address] PCP - BRADY Physician Tip Stretcher 11/02/23 Levy Barry MD [address] [place] [address] [place] [address] PCP - General Family Medicine 12/20/23 documented as of this encounter
--- OUTSIDE RECORDS SUMMARY | 2025-07-31 12:02 | XMS_ITS | Encounter Summary ---
Author Organization [facility] work ([facility]) Address [address] [place] [address] Care Team Providers Care Lead Fire Protection Engineer Name Role Phone Meme Steel MD Primary Care Provider [phone] Pcp, Pcp Primary Care Provider Unavailabl Guadalupe Bardales MD Primary Care Provider [phone] Sena Dominguez Unavailable [phone] Levy Barry MD Primary Care Provider Unavailab le Source Comments The information that you have received may contain highly confidential and/or federally protected health information. This information has been disclosed to you from records protected by [facility]. The law prohibits you [...] contact the sender immediately.[facility] ([facility]) Encounter Details Date Type Department Care Team (Late st Contact Info) Description 2004 Historical Note [facility] BlockBeacon System Devyn Vásquez MD [address] [place] [address] [phone] Social History Tobacco Use Types Packs/Day Years [...] LEATHA CARRILLO - [facility] [address] [facility] [address] [place] [phone] Brenda Clay MD [address] [facility] [address] [place] [address] 04/15/2026 10:00 AM EDT Office Visit LEATHA Primary [facility] at [facility] + [facility] [address] [facility] [address] [place] [address] Sena Dominguez PA [address] [facility] [place] [address] documented as of this encounter Visit Diagnoses Not on filedocumented in this encounter Care Teams Lead Fire Protection Engineer Relationship Specialty Start Date End Date Meme Steel MD [address] [place] [address] 105 [place] [address] PCP - General Pediatrics 06/05/18 04/25/22 No Pcp, Pcp PCP - General 06/08/22 07/19/22 Guadalupe Mcbride MD PCP - General Family Medicine 07/20/22 11/01/23 Sena Dominguez PA [address] [place] [address] [place] [address] PCP - BRADY Physician Independent Living Specialist 11/02/23 Levy Barry MD [address] [place] [address] [place] [address] PCP - General Family Medicine 12/20/23 documented as of this encounter
--- OUTSIDE RECORDS SUMMARY | 2025-07-31 12:02 | XMS_ITS | Encounter Summary ---
Author Organization [facility] work ([facility]) Address [address] [place] [address] Care Team Providers Care Television Repairman Name Role Phone Meme Steel MD Primary Care Provider [phone] Pcp, Pcp Primary Care Provider Unavailabl Guadalupe Bardales MD Primary Care Provider [phone] Sena Dominguez Unavailable [phone] Levy Barry MD Primary Care Provider Unavailab le Source Comments The information that you have received may contain highly confidential and/or federally protected health information. This information has been disclosed to you from records protected by [facility]. The law prohibits you from [...] error, please contact the sender immediately.[facility] ([facility]) Encounter Details Date Type Department Care Team (Late st Contact Info) Description 2004 Historical Note [facility] InMobi System Devyn Vásquez MD [address] [place] [id number] Social History Tobacco Use Types Packs/Day Years [...] Visit LEATHA CARRILLO - [facility] [address] [facility] [address] [place] [phone] Brenda Clay MD [address] [facility] [address] [place] [phone] 04/15/2026 10:00 AM EDT Office Visit LEATHA Primary [facility] at [facility] + [facility] [address] [facility] [address] [place] [address] Sena Dominguez PA [address] [facility] [place] [address] documented as of this encounter Visit Diagnoses Not on filedocumented in this encounter Care Teams Television Repairman Relationship Specialty Start Date End Date Meme Steel MD [address] [place] [address] 105 [place] [address] PCP - General Pediatrics 06/05/18 04/25/22 No Pcp, Pcp PCP - General 06/08/22 07/19/22 Guadalupe Mcbride MD PCP - General Family Medicine 07/20/22 11/01/23 Sena Dominguez PA [address] [place] [address] [place] [address] PCP - BRADY Physician Internal Grinder 11/02/23 Levy Barry MD [address] [place] [address] [place] [address] PCP - General Family Medicine 12/20/23 documented as of this encounter
--- OUTSIDE RECORDS SUMMARY | 2025-07-31 12:02 | XMS_ITS | Encounter Summary ---
Author Organization [facility] [address] work ([facility]) Address [address] [place] [address] Care Team Providers Care Software Configuration Analyst Name Role Phone Meme Steel MD Primary Care Provider [phone] Pcp, Pcp Primary Care Provider Unavailabl Guadalupe Bardales MD Primary Care Provider [phone] Sena Dominguez Unavailable [phone] Levy Barry MD Primary Care Provider Unavailab le Source Comments The information that you have received may contain highly confidential and/or federally protected health information. This information has been disclosed to you from records protected by [facility]. The law prohibits you from [...] please contact the sender immediately.[facility] ([facility]) Encounter Details Date Type Department Care Team (Late st Contact Info) Description 2004 Historical Note SVMG ECKey System Devyn Vásquez MD [address] [place] [address] [phone] Social History Tobacco Use Types Packs/Day Years [...] Visit LEATHA CARRILLO - [facility] [address] [facility] [address] [place] [phone] Brenda Clay MD [address] [facility] [address] [place] [address] 04/15/2026 10:00 AM EDT Office Visit LEATHA [facility] at [facility] + [facility] [address] [facility] [address] [place] [address] Sena Dominguez PA [address] [facility] [place] [address] documented as of this encounter Visit Diagnoses Not on filedocumented in this encounter Care Teams Software Configuration Analyst Relationship Specialty Start Date End Date Meme Steel MD [address] [place] [address] 105 [place] [address] PCP - General Pediatrics 06/05/18 04/25/22 No Pcp, Pcp PCP - General 06/08/22 07/19/22 Guadalupe Mcbride MD PCP - General Family Medicine 07/20/22 11/01/23 Sena Dominguez PA [address] [place] [address] [place] [address] PCP - BRADY Physician Manager Agricultural 11/02/23 Levy Barry MD [address] [place] [address] [place] [address] PCP - General Family Medicine 12/20/23 documented as of this encounter
--- OUTSIDE RECORDS SUMMARY | 2025-07-31 12:02 | XMS_ITS | Encounter Summary ---
Author Organization [facility] work ([facility]) Address [address] [place] [address] Care Team Providers Care Roller Repairer Name Role Phone Meme Steel MD Primary Care Provider [phone] Pcp, Pcp Primary Care Provider Unavailabl Guadalupe Bardales MD Primary Care Provider [phone] Sena Dominguez Unavailable [phone] Levy Barry MD Primary Care Provider Unavailab le Source Comments The information that you have received may contain highly confidential and/or federally protected health information. This information has been disclosed to you from records protected by [employer] [facility]. The law prohibits you from [...] sender immediately.[facility] ([facility]) Encounter Details Date Type Department Care Team (Late st Contact Info) Description 2004 Historical Note [facility]G Domgeo.[employer] System Devyn Vásquez MD [address] [place] [address] [phone] Social History Tobacco Use Types Packs/Day Years [...] CARRILLO - [facility] [address] [facility] [address] [place] [phone] Brenda Clay MD [address] [facility] [address] [place] [address] 04/15/2026 10:00 AM EDT Office Visit LEATHA Primary Care at [facility] + [facility] [address] [facility] [address] [place] [address] Sena Dominguez PA [address] [facility] [place] [address] documented as of this encounter Visit Diagnoses Not on filedocumented in this encounter Care Teams Roller Repairer Relationship Specialty Start Date End Date Meme Steel MD [address] [place] [address] 105 [place] [address] PCP - General Pediatrics 06/05/18 04/25/22 No Pcp, Pcp PCP - General 06/08/22 07/19/22 Guadalupe Mcbride MD PCP - General Family Medicine 07/20/22 11/01/23 Sena Dominguez PA [address] [place] [address] [place] [address] PCP - BRADY Physician Material Scheduler 11/02/23 Levy Barry MD [address] [place] [address] [place] [address] PCP - General Family Medicine 12/20/23 documented as of this encounter
--- OUTSIDE RECORDS SUMMARY | 2025-07-31 12:02 | XMS_ITS | Encounter Summary ---
Author Organization [facility] work ([facility]) Address [address] [facility] [address] [place] [address] Care Team Providers Care Superintendent Custodian Janitor Name Role Phone Meme Steel MD Primary Care Provider [phone] No Pcp, Pcp Primary Care Provider Unavailabl Guadalupe Bardales MD Primary Care Provider [phone] Sena Dominguez Unavailable [phone] Levy Barry MD Primary Care Provider Unavailab le Source Comments The information that you have received may contain highly confidential and/or federally protected health information. This information has been disclosed to you from records protected by [facility]. The law prohibits you from [...] [facility] ([facility]) Encounter Details Date Type Department Care Team (Late st Contact Info) Description 2004 Historical Note [facility] Devyn Vásquez MD [address] [place] [address] [phone] Social History Tobacco Use Types Packs/Day Years [...] CARRILLO - [facility] [address] [facility] [address] [place] [phone] Brenda Clay MD [address] [facility] [address] [place] [address] 04/15/2026 10:00 AM EDT Office Visit LEATHA Primary [facility] at [facility] + [facility] [address] [facility] [address] [place] [address] Sena Dominguez PA [address] [facility] [place] [address] documented as of this encounter Visit Diagnoses Not on filedocumented in this encounter Care Teams Superintendent Custodian Janitor Relationship Specialty Start Date End Date Meme Steel MD [address] [place] [address] 105 [place] [address] PCP - General Pediatrics 06/05/18 04/25/22 No Pcp, Pcp PCP - General 06/08/22 07/19/22 Guadalupe Mcbride MD PCP - General Family Medicine 07/20/22 11/01/23 Sena Dominguez PA [address] [place] [address] [place] [address] PCP - BRADY Physician Ukrainian Folk Arts Instructor 11/02/23 Levy Barry MD [address] [place] [address] [place] [address] PCP - General Family Medicine 12/20/23 documented as of this encounter
--- OUTSIDE RECORDS SUMMARY | 2025-07-31 12:02 | XMS_ITS | Encounter Summary ---
Author Organization [facility] work ([facility]) Address [address] [facility] [address] [place] [address] Care Team Providers Care Research Animal Facility Supervisor Name Role Phone Meme Steel MD Primary Care Provider [phone] No Pcp, Pcp Primary Care Provider Unavailabl Guadalupe Bardales MD Primary Care Provider [phone] Sena Dominguez Unavailable [phone] Levy Barry MD Primary Care Provider Unavailab le Source Comments The information that you have received may contain highly confidential and/or federally protected health information. This information has been disclosed to you from records protected by [employer] [facility] [place]. The law prohibits you from making [...] sender immediately.[facility] ([facility]) Encounter Details Date Type Department Care Team (Late st Contact Info) Description 2004 Historical Note [facility] [employer] Card [employer] System Devyn Vásquez MD [address] [place] [address] [phone] Social History Tobacco Use Types Packs/Day Years [...] CARRILLO - [facility] [address] [facility] [address] [place] [phone] Brenda Clay MD [address] [facility] [address] [place] [address] 04/15/2026 10:00 AM EDT Office Visit LE[facility]HA [facility] [address] [facility] [address] [place] [address] Sena Dominguez PA [address] [facility] [place] [address] documented as of this encounter Visit Diagnoses Not on filedocumented in this encounter Care Teams Research Animal Facility Supervisor Relationship Specialty Start Date End Date Meme Steel MD [address] [place] [address] 105 [place] [address] PCP - General Pediatrics 06/05/18 04/25/22 No Pcp, Pcp PCP - General 06/08/22 07/19/22 Guadalupe Mcbride MD PCP - General Family Medicine 07/20/22 11/01/23 Sena Dominguez PA [address] [place] [address] [place] [address] PCP - BRADY Physician Sausage Mixer 11/02/23 Levy Barry MD [address] [place] [address] [place] [address] PCP - General Family Medicine 12/20/23 documented as of this encounter
--- OUTSIDE RECORDS SUMMARY | 2025-07-31 12:02 | XMS_ITS | Encounter Summary ---
Author Organization [facility] work ([facility]) Address [address] [place] [address] Care Team Providers Care English Adjunct Faculty Name Role Phone Meme Steel MD Primary Care Provider [phone] Pcp, Pcp Primary Care Provider Unavailabl Guadalupe Bardales MD Primary Care Provider [phone] Sena Dominguez Unavailable [phone] Levy Barry MD Primary Care Provider Unavailab le Source Comments The information that you have received may contain highly confidential and/or federally protected health information. This information has been disclosed to you from records protected by [facility]. The law prohibits you from [...] please contact the sender immediately.[facility] ([facility]) Encounter Details Date Type Department Care Team (Late st Contact Info) Description 2004 Historical Note [facility] [employer] System Devyn Vásquez MD [address] [place] [address] [phone] Social History Tobacco Use Types Packs/Day Years [...] Visit LEATHA CARRILLO - [facility] [address] [place] [phone] Brenda Clay MD [address] [facility] [address] [place] [address] 04/15/2026 10:00 AM EDT Office Visit [facility] [address] [place] [address] Sena Dominguez PA [address] [place] [address] documented as of this encounter Visit Diagnoses Not on filedocumented in this encounter Care Teams English Adjunct Faculty Relationship Specialty Start Date End Date Meme Steel MD [address] [place] [address] [place] [address] PCP - General Pediatrics 06/05/18 04/25/22 No Pcp, Pcp PCP - General 06/08/22 07/19/22 Guadalupe Mcbride MD PCP - General Family Medicine 07/20/22 11/01/23 Sena Dominguez PA [address] [place] [address] [place] [address] PCP - BRADY Physician Assault Boat Coxswain 11/02/23 Levy Barry MD [address] [place] [address] [place] [address] PCP - General Family Medicine 12/20/23 documented as of this encounter
--- OUTSIDE RECORDS SUMMARY | 2025-07-31 12:02 | XMS_ITS | Encounter Summary ---
Author Organization [facility] work ([facility]) Address [address] [place] [address] Care Team Providers Care Block Inspector Name Role Phone Meme Steel MD Primary Care Provider [phone] Pcp, Pcp Primary Care Provider Unavailabl Guadalupe Bardales MD Primary Care Provider [phone] Sena Dominguez Unavailable [phone] Levy Barry MD Primary Care Provider Unavailab le Source Comments The information that you have received may contain highly confidential and/or federally protected health information. This information has been disclosed to you from records protected by [facility] [facility]. The law prohibits you from [...] Contact Info) Description 2004 Historical Note [facility] [employer] System Devyn Vásquez MD [address] [place] [address] [phone] Social History Tobacco Use Types Packs/Day Years [...] CARRILLO - [facility] [address] [place] [phone] Brenda Clay MD [address] [facility] [address] [place] [address] 04/15/2026 10:00 AM EDT Office Visit [facility]HA [facility] at [facility] + [facility] [address] [place] [address] Sena Dominguez PA [address] [facility] [place] [address] documented as of this encounter Visit Diagnoses Not on filedocumented in this encounter Care Teams Block Inspector Relationship Specialty Start Date End Date Meme Steel MD [address] [place] [address] 105 [place] [address] PCP - General Pediatrics 06/05/18 04/25/22 No Pcp, Pcp PCP - General 06/08/22 07/19/22 Guadalupe Mcbride MD PCP - General Family Medicine 07/20/22 11/01/23 Sena Dominguez PA [address] [place] [address] [place] [address] PCP - BRADY Physician Document Control Specialist 11/02/23 Levy Barry MD [address] [place] [address] [place] [address] PCP - General Family Medicine 12/20/23 documented as of this encounter
--- OUTSIDE RECORDS SUMMARY | 2025-07-31 12:03 | XMS_ITS | Encounter Summary ---
Author Organization [facility] work ([facility]) Address [address] [place] [address] Care Team Providers Care Show Jumping Instructor Name Role Phone Meme Steel MD Primary Care Provider [phone] Pcp, Pcp Primary Care Provider Unavailabl Guadalupe Bardales MD Primary Care Provider [phone] Sena Dominguez Unavailable [phone] Levy Barry MD Primary Care Provider Unavailab le Source Comments The information that you have received may contain highly confidential and/or federally protected health information. This information has been disclosed to you from records protected by [facility]. The law prohibits you from [...] please contact the sender immediately.[facility] ([facility]) Encounter Details Date Type Department Care Team (Late st Contact Info) Description 11/09/2006 Historical Note [facility] [employer] System Devyn Vásquez MD [address] [place] [address] [phone] Social History Tobacco Use Types Packs/Day Years [...] - Located [facility] [address] [place] [phone] Brenda Clay MD [address] [facility] [address] [place] [address] 04/15/2026 10:00 AM EDT Office Visit [facility] at [facility] + [facility] [address] [place] [address] Sena Dominguez PA [address] [facility] [place] [address] documented as of this encounter Visit Diagnoses Not on filedocumented in this encounter Care Teams Show Jumping Instructor Relationship Specialty Start Date End Date Meme Steel MD [address] [place] [address] 105 [place] [address] PCP - General Pediatrics 06/05/18 04/25/22 No Pcp, Pcp PCP - General 06/08/22 07/19/22 Guadalupe Mcbride MD PCP - General Family Medicine 07/20/22 11/01/23 Sena Dominguez PA [address] [place] [address] [place] [address] PCP - BRADY Physician Construction Technology Instructor 11/02/23 Levy Barry MD [address] [place] [address] [place] [address] PCP - General Family Medicine 12/20/23 documented as of this encounter
--- OUTSIDE RECORDS SUMMARY | 2025-07-31 12:03 | XMS_ITS | Encounter Summary ---
Author Organization [facility] work ([facility]) Address [address] [place] [address] Care Team Providers Care Manager Exchange Name Role Phone eMme Steel MD Primary Care Provider [phone] Pcp, Pcp Primary Care Provider Unavailabl Guadalupe Bardales MD Primary Care Provider [phone] Sena Dominguez Unavailable [phone] Levy Barry MD Primary Care Provider Unavailab le Source Comments The information that you have received may contain highly confidential and/or federally protected health information. This information has been disclosed to you from records protected by [facility] [place]. The law prohibits you from making [...] contact the sender immediately.[facility] ([facility]) Encounter Details Date Type Department Care Team (Late st Contact Info) Description 2004 Historical Note [facility] [employer] System Devyn Vásquez MD [address] [place] [address] [phone] Social History Tobacco Use Types Packs/Day Years [...] Office Visit LEATHA CARRILLO - [facility] [address] [place] [phone] Brenda Clay MD [address] [facility] [address] [place] [phone] 04/15/2026 10:00 AM EDT Office Visit LE[facility]HA [facility] at [facility] + [facility] [address] [place] [phone] Sena Dominguez PA [address] [facility] [address] [place] [address] documented as of this encounter Visit Diagnoses Not on filedocumented in this encounter Care Teams Manager Exchange Relationship Specialty Start Date End Date Meme Steel MD [address] [place] [address] 105 [place] [address] PCP - General Pediatrics 06/05/18 04/25/22 No Pcp, Pcp PCP - General 06/08/22 07/19/22 Guadalupe Mcbride MD PCP - General Family Medicine 07/20/22 11/01/23 Sena Dominguez PA [address] [place] [address] [place] [address] PCP - BRADY Physician Seed Yeast Operator 11/02/23 Levy Barry MD [address] [place] [address] [place] [address] PCP - General Family Medicine 12/20/23 documented as of this encounter
--- OUTSIDE RECORDS SUMMARY | 2025-07-31 12:03 | XMS_ITS | Encounter Summary ---
Author Organization [facility] work ([facility]) Address [address] [place] [address] Care Team Providers Care Foundation Engineer Name Role Phone Meme Steel MD Primary Care Provider No Pcp, Pcp Primary Care Provider Unavailabl Guadalupe Bardales MD Primary Care Provider [phone] Sena Dominguez Unavailable [phone] Levy Barry MD Primary Care Provider Unavailab le Source Comments The information that you have received may contain highly confidential and/or federally protected health information. This information has been disclosed to you from records protected by [facility]. The law prohibits you [...] please contact the sender immediately.[facility] ([facility]) Encounter Details Date Type Department Care Team (Late st Contact Info) Description 2004 Historical Note [facility] [employer] System Devyn Vásquez MD [address] [place] [address] [phone] Social History Tobacco Use Types Packs/Day Years [...] LEATHA CARRILLO - [facility] [address] [facility] [address] [place] [phone] Brenda Clay MD [address] [facility] [address] [place] [phone] 04/15/2026 10:00 AM EDT Office Visit [facility]HA [facility] + [facility] [address] [facility] [address] [place] [address] Sena Dominguez PA [address] [facility] [place] [address] documented as of this encounter Visit Diagnoses Not on filedocumented in this encounter Care Teams Foundation Engineer Relationship Specialty Start Date End Date Meme Steel MD [address] [place] [address] 105 [place] [address] PCP - General Pediatrics 06/05/18 04/25/22 No Pcp, Pcp PCP - General 06/08/22 07/19/22 Guadalupe Mcbride MD PCP - General Family Medicine 07/20/22 11/01/23 Sena Dominguez PA [address] [place] [address] [place] [address] PCP - BRADY Physician Bench Molder Apprentice 11/02/23 Levy Barry MD [address] [place] [address] [place] [address] PCP - General Family Medicine 12/20/23 documented as of this encounter
--- OUTSIDE RECORDS SUMMARY | 2025-07-31 12:03 | XMS_ITS | Encounter Summary ---
Author Organization [facility] work ([facility]) Address [address] [place] [address] Care Team Providers Care Oleomargarine Maker Name Role Phone Meme Steel MD Primary Care Provider No Pcp, Pcp Primary Care Provider Unavailabl Guadalupe Bardales MD Primary Care Provider [phone] Sena Dominguez Unavailable [phone] Levy Barry MD Primary Care Provider Unavailab le Source Comments The information that you have received may contain highly confidential and/or federally protected health information. This information has been disclosed to you from records protected by [facility]. The law prohibits you from [...] error, please contact the sender immediately.[facility] ([facility]) Encounter Details Date Type Department Care Team (Late st Contact Info) Description 2004 Historical Note [facility] [employer] System Devyn Vásquez MD [address] [place] [address] [phone] Social History Tobacco Use Types Packs/Day Years [...] CARRILLO - [facility] [address] [place] [phone] Brenda Clay MD [address] [facility] [address] [place] [phone] 04/15/2026 10:00 AM EDT Office Visit [facility] [address] [facility] [address] [place] [address] Sena Dominguez PA [address] [facility] [place] [address] documented as of this encounter Visit Diagnoses Not on filedocumented in this encounter Care Teams Oleomargarine Maker Relationship Specialty Start Date End Date Meme Steel MD [address] [place] [address] 105 [place] [address] PCP - General Pediatrics 06/05/18 04/25/22 No Pcp, Pcp PCP - General 06/08/22 07/19/22 Guadalupe Mcbride MD PCP - General Family Medicine 07/20/22 11/01/23 Sena Dominguez PA [address] [place] [address] [place] [address] PCP - BRADY Physician It Quality Assurance Analyst 11/02/23 Levy Barry MD [address] [place] [address] [place] [address] PCP - General Family Medicine 12/20/23 documented as of this encounter
--- OUTSIDE RECORDS SUMMARY | 2025-07-31 12:03 | XMS_ITS | Encounter Summary ---
Author Organization [facility] work ([facility]) Address [address] [place] [address] Care Team Providers Care Apprise Counselor Name Role Phone Meme Steel MD Primary Care Provider [phone] Pcp, Pcp Primary Care Provider Unavailabl Guadalupe Bardales MD Primary Care Provider Sena Dominguez Unavailable [phone] Levy Barry MD Primary Care Provider Unavailab le Source Comments The information that you have received may contain highly confidential and/or federally protected health information. This information has been disclosed to you from records protected by [facility]. The law prohibits you [...] contact the sender immediately.[facility] ([facility]) Encounter Details Date Type Department Care Team (Late st Contact Info) Description 2004 Historical Note [facility] [employer] System Devyn Vásquez MD [address] [place] [address] [phone] Social History Tobacco Use Types Packs/Day Years [...] LEATHA CARRILLO - [facility] [address] [facility] [address] [place] [phone] Brenda Clay MD [address] [facility] [address] [place] [address] 04/15/2026 10:00 AM EDT Office Visit LEATHA [facility] at [facility] + [facility] [address] [place] [address] Sena Dominguez PA [address] [facility] [place] [address] documented as of this encounter Visit Diagnoses Not on filedocumented in this encounter Care Teams Apprise Counselor Relationship Specialty Start Date End Date Meme Steel MD [address] [place] [address] 105 [place] [address] PCP - General Pediatrics 06/05/18 04/25/22 No Pcp, Pcp PCP - General 06/08/22 07/19/22 Guadalupe Mcbride MD PCP - General Family Medicine 07/20/22 11/01/23 Sena Dominguez PA [address] [place] [address] [place] [address] PCP - BRADY Physician Nutter Up 11/02/23 Levy Barry MD [address] [place] [address] [place] [address] PCP - General Family Medicine 12/20/23 documented as of this encounter
--- OUTSIDE RECORDS SUMMARY | 2025-07-31 12:03 | XMS_ITS | Encounter Summary ---
Author Organization [facility] work ([facility]) Address [address] [place] [address] Care Team Providers Care Contact Agent Name Role Phone Meme Steel MD Primary Care Provider [phone] Pcp, Pcp Primary Care Provider Unavailabl Guadalupe Bardales MD Primary Care Provider [phone] Sena Dominguez Unavailable [phone] Levy Barry MD Primary Care Provider Unavailab le Source Comments The information that you have received may contain highly confidential and/or federally protected health information. This information has been disclosed to you from records protected by [facility]. The law prohibits you [...] contact the sender immediately.[facility] ([facility]) Encounter Details Date Type Department Care Team (Late st Contact Info) Description 06/19/2007 Historical Note [facility] [employer] System Devyn Vásquez MD [address] [place] [address] [phone] Social History Tobacco Use Types Packs/Day Years [...] - [facility] [address] [facility] [address] [place] [phone] Brenda Clay MD [address] [facility] [address] [place] [phone] 04/15/2026 10:00 AM EDT Office Visit LEATHA [facility] at [facility] + [facility] [address] [facility] [address] [place] [address] Sena Dominguez PA [address] [facility] [place] [address] documented as of this encounter Visit Diagnoses Not on filedocumented in this encounter Care Teams Contact Agent Relationship Specialty Start Date End Date Meme Steel MD [address] [place] [address] 105 [place] [address] PCP - General Pediatrics 06/05/18 04/25/22 No Pcp, Pcp PCP - General 06/08/22 07/19/22 Guadalupe Mcbride MD PCP - General Family Medicine 07/20/22 11/01/23 Sena Dominguez PA [address] [place] [address] [place] [address] PCP - BRADY Physician Burner Tender 11/02/23 Levy Barry MD [address] [place] [address] [place] [address] PCP - General Family Medicine 12/20/23 documented as of this encounter
--- OUTSIDE RECORDS SUMMARY | 2025-07-31 12:03 | XMS_ITS | Encounter Summary ---
Author Organization [facility] work ([facility]) Address [address] [place] [address] Care Team Providers Care Fish Tender Name Role Phone Meme Steel MD Primary Care Provider [phone] Pcp, Pcp Primary Care Provider Unavailabl Guadalupe Bardales MD Primary Care Provider [phone] Sena Dominguez Unavailable [phone] Levy Barry MD Primary Care Provider Unavailab le Source Comments The information that you have received may contain highly confidential and/or federally protected health information. This information has been disclosed to you from records protected by [facility] [place]. The law prohibits you from [...] immediately.[facility] ([facility]) Encounter Details Date Type Department Care Team (Late st Contact Info) Description 11/09/2006 Historical Note [facility] [employer] System Devyn Vásquez MD [address] [place] [address] [phone] Social History Tobacco Use Types Packs/Day Years [...] Visit LEATHA CARRILLO - [facility] [address] [facility] [address] [place] [phone] Brenda Clay MD [address] [facility] [address] [place] [phone] 04/15/2026 10:00 AM EDT Office Visit LEATHA [facility] at [facility] + [facility] [address] [facility] [address] [place] [address] Sena Dominguez PA [address] [facility] [place] [address] documented as of this encounter Visit Diagnoses Not on filedocumented in this encounter Care Teams Fish Tender Relationship Specialty Start Date End Date Meme Steel MD [address] [place] [address] 105 [place] [address] PCP - General Pediatrics 06/05/18 04/25/22 No Pcp, Pcp PCP - General 06/08/22 07/19/22 Guadalupe Mcbride MD PCP - General Family Medicine 07/20/22 11/01/23 Sena Dominguez PA [address] [place] [address] [place] [address] PCP - BRADY Physician Senior Bioinformatics Scientist 11/02/23 Levy Barry MD [address] [place] [address] [place] [address] PCP - General Family Medicine 12/20/23 documented as of this encounter
--- OUTSIDE RECORDS SUMMARY | 2025-07-31 12:03 | XMS_ITS | Encounter Summary ---
Author Organization [facility] work ([facility]) Address [address] [place] [address] Care Team Providers Care Certified Adaptive Physical Educator Name Role Phone Meme Steel MD Primary Care Provider [phone] Pcp, Pcp Primary Care Provider Unavailabl Guadalupe Bardales MD Primary Care Provider [phone] Sena Dominguez Unavailable [phone] Levy Barry MD Primary Care Provider Unavailab le Source Comments The information that you have received may contain highly confidential and/or federally protected health information. This information has been disclosed to you from records protected by [facility]. The law prohibits [...] immediately.[facility] ([facility]) Encounter Details Date Type Department Care Team (Late st Contact Info) Description 2004 Historical Note [facility] [employer] System Devyn Vásquez MD [address] [place] [address] [phone] Social History Tobacco Use Types Packs/Day Years [...] - [facility] [address] [facility] [address] [place] [phone] Brenda Clay MD [address] [facility] [address] [place] [phone] 04/15/2026 10:00 AM EDT Office Visit LE[facility]HA [facility] + [facility] [address] [facility] [address] [place] [address] Sena Dominguez PA [address] [facility] [place] [address] documented as of this encounter Visit Diagnoses Not on filedocumented in this encounter Care Teams Certified Adaptive Physical Educator Relationship Specialty Start Date End Date Meme Steel MD [address] [place] [address] 105 [place] [address] PCP - General Pediatrics 06/05/18 04/25/22 No Pcp, Pcp PCP - General 06/08/22 07/19/22 Guadalupe Mcbride MD PCP - General Family Medicine 07/20/22 11/01/23 Sena Dominguez PA [address] [place] [address] [place] [address] PCP - BRADY Physician Bench Inspector 11/02/23 Levy Barry MD [address] [place] [address] [place] [address] PCP - General Family Medicine 12/20/23 documented as of this encounter
--- OUTSIDE RECORDS SUMMARY | 2025-07-31 12:03 | XMS_ITS | Encounter Summary ---
Author Organization [facility] work ([facility]) Address [address] [facility] [address] [address] [place] [address] Care Team Providers Care Siebel Developer Name Role Phone Meme Steel MD Primary Care Provider No Pcp, Pcp Primary Care Provider Unavailabl Guadalupe Bardales MD Primary Care Provider [phone] Sena Dominguez Unavailable Levy Barry MD Primary Care Provider Unavailab le Source Comments The information that you have received may contain highly confidential and/or federally protected health information. This information has been disclosed to you from records protected by [facility]. The law prohibits you from making [...] sender immediately.[facility] ([facility]) Encounter Details Date Type Department Care Team (Late st Contact Info) Description 2004 Historical Note [facility] MEDArchon System Devyn Vásquez MD [address] [place] [address] [phone] Social History Tobacco Use Types Packs/Day Years [...] - [facility] [address] [facility] [address] [place] [phone] Brenda Clay MD [address] [facility] [address] [place] [address] 04/15/2026 10:00 AM EDT Office Visit [facility] at [facility] + [facility] [address] [facility] [address] [place] [address] Sena Dominguez PA [address] [facility] [place] [address] documented as of this encounter Visit Diagnoses Not on filedocumented in this encounter Care Teams Siebel Developer Relationship Specialty Start Date End Date Meme Steel MD [address] [place] [address] [place] [address] PCP - General Pediatrics 06/05/18 04/25/22 No Pcp, Pcp PCP - General 06/08/22 07/19/22 Gaudalupe Mcbride MD PCP - General Family Medicine 07/20/22 11/01/23 Sena Dominguez PA [address] [place] [address] [place] [address] PCP - BRADY Physician Leather Carver 11/02/23 Levy Barry MD [address] [place] [address] [place] [address] PCP - General Family Medicine 12/20/23 documented as of this encounter
--- OUTSIDE RECORDS SUMMARY | 2025-07-31 12:03 | XMS_ITS | Encounter Summary ---
Author Organization [facility] work ([facility]) Address [address] [facility] [address] [place] [address] Care Team Providers Care Machining Manager Name Role Phone Meme Steel MD Primary Care Provider [phone] Pcp, Pcp Primary Care Provider Unavailabl Guadalupe Bardales MD Primary Care Provider [phone] Sena Dominguez Unavailable [phone] Levy Barry MD Primary Care Provider Unavailab le Source Comments The information that you have received may contain highly confidential and/or federally protected health information. This information has been disclosed to you from records protected by [facility]. The law prohibits you from making [...] immediately.[facility] ([facility]) Encounter Details Date Type Department Care Team (Late st Contact Info) Description 11/14/2006 Historical Note [facility] [employer]DEG[employer] System Devyn Vásquez MD [address] [place] [address] [phone] Social History Tobacco Use Types Packs/Day Years [...] - Located [facility] at [facility] [address] [facility] [address] [place] [phone] Brenda Clay MD 2315 [facility] [address] [place] [address] 04/15/2026 10:00 AM EDT Office Visit [facility] [address] [facility] [address] [place] [address] Sena Dominguez PA [address] [facility] [place] [address] documented as of this encounter Visit Diagnoses Not on filedocumented in this encounter Care Teams Machining Manager Relationship Specialty Start Date End Date Meme Steel MD [address] [place] [address] 105 [place] [address] PCP - General Pediatrics 06/05/18 04/25/22 No Pcp, Pcp PCP - General 06/08/22 07/19/22 Guadalupe Mcbride MD PCP - General Family Medicine 07/20/22 11/01/23 Sena Dominguez PA [address] [place] [address] [place] [address] PCP - BRADY Physician Exercise Rider 11/02/23 Levy Barry MD [address] [place] [address] [place] [address] PCP - General Family Medicine 12/20/23 documented as of this encounter
--- OUTSIDE RECORDS SUMMARY | 2025-07-31 12:03 | XMS_ITS | Encounter Summary ---
Author Organization [facility] work ([facility]) Address [address] [facility] [address] [address] [place] [address] Care Team Providers Care Receipt And Report Clerk Name Role Phone Meme Steel MD Primary Care Provider [phone] No Pcp, Pcp Primary Care Provider Unavailabl Guadalupe Bardales MD Primary Care Provider [phone] Sena Dominguez Unavailable [phone] Levy Barry MD Primary Care Provider Unavailab le Source Comments The information that you have received may contain highly confidential and/or federally protected health information. This information has been disclosed to you from records protected by [employer]. The law prohibits you [...] error, please contact the sender immediately.[facility] ([facility]) Encounter Details Date Type Department Care Team (Late st Contact Info) Description 11/14/2006 Historical Note [facility] Dokogeo System Devyn Vásquez MD [address] [place] [address] [phone] Social History Tobacco Use Types Packs/Day Years [...] Visit LEATHA CARRILLO - [facility] [address] [facility] [address] [place] [phone] Brenda [place] MD [address] [facility] [address] [place] [address] 04/15/2026 10:00 AM EDT Office Visit [facility] at [facility] + [facility] [address] [facility] [address] [place] [address] Sena Dominguez PA [address] [facility] [place] [address] documented as of this encounter Visit Diagnoses Not on filedocumented in this encounter Care Teams Receipt And Report Clerk Relationship Specialty Start Date End Date Meme Steel MD [address] [place] [address] 105 [place] [address] PCP - General Pediatrics 06/05/18 04/25/22 No Pcp, Pcp PCP - General 06/08/22 07/19/22 Guadalupe Mcbride MD PCP - General Family Medicine 07/20/22 11/01/23 Sena Dominguez PA [address] [place] [address] [place] [address] PCP - BRADY Physician Passementerie Worker 11/02/23 Levy Barry MD [address] [place] [address] [place] [address] PCP - General Family Medicine 12/20/23 documented as of this encounter
--- OUTSIDE RECORDS SUMMARY | 2025-07-31 12:03 | XMS_ITS | Encounter Summary ---
Author Organization [facility] work ([facility]) Address [address] [facility] [address] [place] [address] Care Team Providers Care Set Up Machinist Name Role Phone Meme Steel MD Primary Care Provider [phone] Pcp, Pcp Primary Care Provider Unavailabl Guadalupe Bardales MD Primary Care Provider [phone] Sena Dominguez Unavailable [phone] Levy Barry MD Primary Care Provider Unavailab le Source Comments The information that you have received may contain highly confidential and/or federally protected health information. This information has been disclosed to you from records protected by [facility]. The law prohibits you from [...] the sender immediately.[facility] ([facility]) Encounter Details Date Type Department Care Team (Late st Contact Info) Description 03/11/2007 Historical Note [facility] sones System Devyn Vásquez MD [address] [place] [address] [phone] Social History Tobacco Use Types Packs/Day Years [...] CARRILLO - [facility] at [facility] [address] [facility] [address] [place] [phone] Brenda [place] MD [address] [facility] [address] [place] [address] 04/15/2026 10:00 AM EDT Office Visit [facility]HA [facility] at [facility] + [facility] [address] [facility] [address] [place] [address] Sena Dominguez PA [address] [facility] [place] [address] documented as of this encounter Visit Diagnoses Not on filedocumented in this encounter Care Teams Set Up Machinist Relationship Specialty Start Date End Date Meme Steel MD [address] [place] [address] 105 [place] [address] PCP - General Pediatrics 06/05/18 04/25/22 No Pcp, Pcp PCP - General 06/08/22 07/19/22 Guadalupe Mcbride MD PCP - General Family Medicine 07/20/22 11/01/23 Sena Dominguez PA [address] [place] [address] [place] [address] PCP - BRADY Physician Ui Lead Developer 11/02/23 Levy Barry MD [address] [place] [address] [place] [address] PCP - General Family Medicine 12/20/23 documented as of this encounter
--- OUTSIDE RECORDS SUMMARY | 2025-07-31 12:03 | XMS_ITS | Encounter Summary ---
Author Organization [facility] work ([facility]) Address [address] [facility] [facility] [address] [place] [address] Care Team Providers Care Tug Master Name Role Phone Meme Steel MD Primary Care Provider [phone] Pcp, Pcp Primary Care Provider Unavailabl Guadalupe Bardales MD Primary Care Provider [phone] Sena Dominguez Unavailable [phone] Levy Barry MD Primary Care Provider Unavailab le Source Comments The information that you have received may contain highly confidential and/or federally protected health information. This information has been disclosed to you from records protected by [facility]. The law prohibits you [...] information in error, please contact the sender immediately.[facility] ([facility]) Encounter Details Date Type Department Care Team (Late st Contact Info) Description 2004 Historical Note [facility] Enlighted System Devyn Vásquez MD [address] [place] [address] [phone] Social History Tobacco Use Types Packs/Day Years [...] LEATHA CARRILLO - [facility] [address] [facility] [address] [place] [phone] Brenda [place] MD 23[address] [facility] [address] [place] [phone] 04/15/2026 10:00 AM EDT Office Visit [facility]HA [facility] at [facility] + [facility] [address] [facility] [address] [place] [address] Sena Dominguez PA [address] [facility] [place] [address] documented as of this encounter Visit Diagnoses Not on filedocumented in this encounter Care Teams Tug Master Relationship Specialty Start Date End Date Meme Steel MD [address] [place] [address] 105 [place] [address] PCP - General Pediatrics 06/05/18 04/25/22 No Pcp, Pcp PCP - General 06/08/22 07/19/22 Guadalupe Mcbride MD PCP - General Family Medicine 07/20/22 11/01/23 Sena Dominguez PA [address] [place] [address] [place] [address] PCP - BRADY Physician Pull Through Hooker 11/02/23 Levy Barry MD [address] [place] [address] [place] [address] PCP - General Family Medicine 12/20/23 documented as of this encounter
--- OUTSIDE RECORDS SUMMARY | 2025-07-31 12:03 | XMS_ITS | Encounter Summary ---
Author Organization [facility] work ([facility]) Address [address] [facility] [address] [place] [address] Care Team Providers Care Finger Grip Machine Operator Name Role Phone Meme Steel MD Primary Care Provider [phone] Pcp, Pcp Primary Care Provider Unavailabl Guadalupe Bardales MD Primary Care Provider [phone] Sena Dominguez Unavailable [phone] Levy Barry MD Primary Care Provider Unavailab le Source Comments The information that you have received may contain highly confidential and/or federally protected health information. This information has been disclosed to you from records protected by [facility]. The law prohibits you from [...] contact the sender immediately.[facility] ([facility]) Encounter Details Date Type Department Care Team (Late st Contact Info) Description 06/14/2007 Historical Note [facility] Restore Water System Devyn Vásquez MD [address] [place] [phone] Social History Tobacco Use Types Packs/Day Years [...] Visit LEATHA CARRILLO - [facility] [address] [facility] [address] [place] [phone] Brenda [place] MD [address] [facility] [address] [place] [address] 04/15/2026 10:00 AM EDT Office Visit LEATHA Primary Care at [facility] + [facility] [address] [facility] [address] [place] [address] Sena Dominguez PA [address] [facility] [place] [address] documented as of this encounter Visit Diagnoses Not on filedocumented in this encounter Care Teams Finger Grip Machine Operator Relationship Specialty Start Date End Date Meme Steel MD [address] [place] [address] 105 [place] [address] PCP - General Pediatrics 06/05/18 04/25/22 No Pcp, Pcp PCP - General 06/08/22 07/19/22 Guadalupe Mcbride MD PCP - General Family Medicine 07/20/22 11/01/23 Sena Dominguez PA [address] [place] [address] [place] [address] PCP - BRADY Physician Speech Lang Path Therapist 11/02/23 Levy Barry MD [address] [place] [address] [place] [address] PCP - General Family Medicine 12/20/23 documented as of this encounter
--- OUTSIDE RECORDS SUMMARY | 2025-07-31 12:03 | XMS_ITS | Encounter Summary ---
Author Organization [facility] work ([facility]) Address [address] [facility] [address] [place] [address] Care Team Providers Care Student Accounts Manager Name Role Phone Meme Steel MD Primary Care Provider [phone] Pcp, Pcp Primary Care Provider Unavailabl Guadalupe Bardales MD Primary Care Provider [phone] Sena Dominguez Unavailable [phone] Levy Barry MD Primary Care Provider Unavailab le Source Comments The information that you have received may contain highly confidential and/or federally protected health information. This information has been disclosed to you from records protected by [facility]. The law prohibits you [...] information in error, please contact the sender immediately.[facility] ([facility]) Encounter Details Date Type Department Care Team (Late st Contact Info) Description 2004 Historical Note [facility] MyCadbox System Devyn Vásquez MD [address] [place] [address] [phone] Social History Tobacco Use Types Packs/Day Years [...] LEATHA CARRILLO - [facility] [address] [facility] [address] [place] [phone] Brenda [place] MD 2315 [facility] [address] [place] [address] 04/15/2026 10:00 AM EDT Office Visit LE[facility]HA [facility] at [facility] + [facility] [address] [facility] [address] [place] [address] Sena Dominguez PA [address] [facility] [place] [address] documented as of this encounter Visit Diagnoses Not on filedocumented in this encounter Care Teams Student Accounts Manager Relationship Specialty Start Date End Date Meme Steel MD [address] [place] [address] 105 [place] [address] PCP - General Pediatrics 06/05/18 04/25/22 No Pcp, Pcp PCP - General 06/08/22 07/19/22 Guadalupe Mcbride MD PCP - General Family Medicine 07/20/22 11/01/23 Sena Dominguez PA [address] [place] [address] [place] [address] PCP - BRADY Physician Reservation Manager 11/02/23 Levy Barry MD [address] [place] [address] [place] [address] PCP - General Family Medicine 12/20/23 documented as of this encounter
--- OUTSIDE RECORDS SUMMARY | 2025-07-31 12:03 | XMS_ITS | Encounter Summary ---
Author Organization [facility] work ([facility]) Address [address] [facility] [address] [place] [address] Care Team Providers Care Propulsion Motor And Generator Repairer Name Role Phone Meme Steel MD Primary Care Provider [phone] Pcp, Pcp Primary Care Provider Unavailabl Guadalupe Bardales MD Primary Care Provider [phone] Sena Dominguez Unavailable [phone] Levy Barry MD Primary Care Provider Unavailab le Source Comments The information that you have received may contain highly confidential and/or federally protected health information. This information has been disclosed to you from records protected by [employer]. The law prohibits you [...] please contact the sender immediately.[facility] ([facility]) Encounter Details Date Type Department Care Team (Late st Contact Info) Description 06/01/2006 Historical Note [facility] Wanderu System Devyn Vásquez MD [address] [place] [address] [phone] Social History Tobacco Use Types Packs/Day Years [...] Visit LEATHA CARRILLO - [facility] [address] [facility] [address] [place] [phone] Brenda [place] MD 2315 [facility] [address] [place] [address] 04/15/2026 10:00 AM EDT Office Visit LEATHA Primary [facility] at [facility] + [facility] [address] [facility] [address] [place] [address] Sena Dominguez PA [address] [facility] [place] [address] documented as of this encounter Visit Diagnoses Not on filedocumented in this encounter Care Teams Propulsion Motor And Generator Repairer Relationship Specialty Start Date End Date Meme Steel MD [address] [place] [address] 105 [place] [address] PCP - General Pediatrics 06/05/18 04/25/22 No Pcp, Pcp PCP - General 06/08/22 07/19/22 Guadalupe Mcbride MD PCP - General Family Medicine 07/20/22 11/01/23 Sena Dominguez PA [address] [place] [address] [place] [address] PCP - BRADY Physician Pneumatic Tester 11/02/23 Levy Barry MD [address] [place] [address] [place] [address] PCP - General Family Medicine 12/20/23 documented as of this encounter
--- OUTSIDE RECORDS SUMMARY | 2025-07-31 12:03 | XMS_ITS | Encounter Summary ---
Author Organization [facility] work ([facility]) Address [address] [facility] [facility] [address] [place] [address] Care Team Providers Care Account Associate Name Role Phone Meme Steel MD Primary Care Provider [phone] Pcp, Pcp Primary Care Provider Unavailabl Guadalupe Bardales MD Primary Care Provider [phone] Sena Dominguez Unavailable Levy Barry MD Primary Care Provider Unavailab le Source Comments The information that you have received may contain highly confidential and/or federally protected health information. This information has been disclosed to you from records protected by [facility]. The law prohibits you from [...] please contact the sender immediately.[facility] ([facility]) Encounter Details Date Type Department Care Team (Late st Contact Info) Description 03/11/2007 Historical Note [facility] KOALA.CH System Devyn Vásquez MD [address] [place] [address] [phone] Social History Tobacco Use Types Packs/Day Years [...] Office Visit LEATHA CARRILLO - [facility] [address] [facility] [address] [place] [phone] Brenda [place] MD [address] [facility] [address] [place] [address] 04/15/2026 10:00 AM EDT Office Visit LEATHA [facility] at [facility] + [facility] [address] [facility] [address] [place] [address] Sena Dominguez PA [address] [facility] [place] [address] documented as of this encounter Visit Diagnoses Not on filedocumented in this encounter Care Teams Account Associate Relationship Specialty Start Date End Date Meme Steel MD [address] [place] [address] 105 [place] [address] PCP - General Pediatrics 06/05/18 04/25/22 No Pcp, Pcp PCP - General 06/08/22 07/19/22 Guadalupe Mcbride MD PCP - General Family Medicine 07/20/22 11/01/23 Sena Dominguez PA [address] [place] [address] [place] [address] PCP - BRADY Physician Fruit Canner 11/02/23 Levy Barry MD [address] [place] [address] [place] [address] PCP - General Family Medicine 12/20/23 documented as of this encounter
--- OUTSIDE RECORDS SUMMARY | 2025-07-31 12:03 | XMS_ITS | Encounter Summary ---
Author Organization [facility] work ([facility]) Address [address] [facility] [address] [place] [address] Care Team Providers Care Dragger Name Role Phone Meme Steel MD Primary Care Provider [phone] No Pcp, Pcp Primary Care Provider Unavailabl Guadalupe Bardales MD Primary Care Provider [phone] Sena Dominguez Unavailable [phone] Levy Barry MD Primary Care Provider Unavailab le Source Comments The information that you have received may contain highly confidential and/or federally protected health information. This information has been disclosed to you from records protected by [facility]. The law prohibits you from [...] [facility] [address] ([facility]) Encounter Details Date Type Department Care Team (Late st Contact Info) Description 2004 Historical Note [facility] cloud.IQ System Devyn Vásquez MD [address] [place] [address] [phone] Social History Tobacco Use Types Packs/Day Years [...] - [facility] at [facility] [address] [facility] [address] [place] [phone] Brenda [place] MD [address] [facility] [address] [place] [phone] 04/15/2026 10:00 AM EDT Office Visit LEATHA Primary [facility] at [facility] + [facility] [address] [facility] [address] [place] [address] Sena Dominguez PA [address] [facility] [place] [address] documented as of this encounter Visit Diagnoses Not on filedocumented in this encounter Care Teams Dragger Relationship Specialty Start Date End Date Meme Steel MD [address] [place] [address] 105 [place] [address] PCP - General Pediatrics 06/05/18 04/25/22 No Pcp, Pcp PCP - General 06/08/22 07/19/22 Guadalupe Mcbride MD PCP - General Family Medicine 07/20/22 11/01/23 Sena Dominguez PA [address] [place] [address] [place] [address] PCP - BRADY Physician Filler Machine Operator 11/02/23 Levy Barry MD [address] [place] [address] [place] [address] PCP - General Family Medicine 12/20/23 documented as of this encounter
--- OUTSIDE RECORDS SUMMARY | 2025-07-31 12:03 | XMS_ITS | Encounter Summary ---
Author Organization [facility] work ([facility]) Address [address] [place] [address] Care Team Providers Care Patient Registration Specialist Name Role Phone Meme Steel MD Primary Care Provider [phone] Pcp, Pcp Primary Care Provider Unavailabl Guadalupe Bardales MD Primary Care Provider [phone] Sena Dominguez Unavailable [phone] Levy Barry MD Primary Care Provider Unavailab le Source Comments The information that you have received may contain highly confidential and/or federally protected health information. This information has been disclosed to you from records protected by [facility]. The law prohibits you from [...] please contact the sender immediately.[facility] ([facility]) Encounter Details Date Type Department Care Team (Late st Contact Info) Description 2004 Historical Note [facility] AeroSurgical System Devyn Vásquez MD [address] [place] [address] [phone] Social History Tobacco Use Types Packs/Day Years [...] [facility] [address] [place] [phone] Brenda Clay MD [address] [facility] [address] [place] [address] 04/15/2026 10:00 AM EDT Office Visit [facility] + [facility] [address] [facility] [address] [place] [address] Sena Dominguez PA [address] [facility] [place] [address] documented as of this encounter Visit Diagnoses Not on filedocumented in this encounter Care Teams Patient Registration Specialist Relationship Specialty Start Date End Date Meme Steel MD [address] [place] [address] 105 [place] [address] PCP - General Pediatrics 06/05/18 04/25/22 No Pcp, Pcp PCP - General 06/08/22 07/19/22 Guadalupe Mcbride MD PCP - General Family Medicine 07/20/22 11/01/23 Sena Dominguez PA [address] [place] [address] [place] [address] PCP - BRADY Physician National Accounts Recruiter 11/02/23 Levy Barry MD [address] [place] [address] [place] [address] PCP - General Family Medicine 12/20/23 documented as of this encounter
--- OUTSIDE RECORDS SUMMARY | 2025-07-31 12:03 | XMS_ITS | Encounter Summary ---
Author Organization [facility] work ([facility]) Address [address] [place] [address] Care Team Providers Care Supply Room Clerk Name Role Phone Meme Steel MD Primary Care Provider [phone] Pcp, Pcp Primary Care Provider Unavailabl Guadalupe Bardales MD Primary Care Provider [phone] Sena Dominguez Unavailable [phone] Levy Barry MD Primary Care Provider Unavailab le Source Comments The information that you have received may contain highly confidential and/or federally protected health information. This information has been disclosed to you from records protected by [facility]. The law prohibits you [...] please contact the sender immediately.[facility] ([facility]) Encounter Details Date Type Department Care Team (Late st Contact Info) Description 06/01/2006 Historical Note [facility] CytRx System Devyn Vásquez MD [address] [place] [address] [phone] Social History Tobacco Use Types Packs/Day Years [...] - [facility] at [facility] [address] [facility] [address] [place] [phone] Brenda Clay MD [address] [facility] [address] [place] [address] 04/15/2026 10:00 AM EDT Office Visit [facility] at [facility] + [facility] [address] [facility] [facility] [address] [place] [address] Sena Dominguez PA [address] [facility] [place] [address] documented as of this encounter Visit Diagnoses Not on filedocumented in this encounter Care Teams Supply Room Clerk Relationship Specialty Start Date End Date Meme Steel MD [address] [place] [address] 105 [place] [address] PCP - General Pediatrics 06/05/18 04/25/22 No Pcp, Pcp PCP - General 06/08/22 07/19/22 Guadalupe Mcbride MD PCP - General Family Medicine 07/20/22 11/01/23 Sena Dominguez PA [address] [place] [address] [place] [address] PCP - BRADY Physician Alternative Energy Technician 11/02/23 Levy Barry MD [address] [place] [address] [place] [address] PCP - General Family Medicine 12/20/23 documented as of this encounter
--- OUTSIDE RECORDS SUMMARY | 2025-07-31 12:03 | XMS_ITS | Encounter Summary ---
Author Organization [facility] work ([facility]) Address [address] [place] [address] Care Team Providers Care Dust Mixer Name Role Phone Meme Steel MD Primary Care Provider No Pcp, Pcp Primary Care Provider Unavailabl Guadalupe Bardales MD Primary Care Provider [phone] Sena Dominguez Unavailable [phone] Levy Barry MD Primary Care Provider Unavailab le Source Comments The information that you have received may contain highly confidential and/or federally protected health information. This information has been disclosed to you from records protected by [facility]. The law prohibits you from making [...] contact the sender immediately.[facility] ([facility]) Encounter Details Date Type Department Care Team (Late st Contact Info) Description 2004 Historical Note [facility] PayParrot System Devyn Vásquez MD [address] [place] [address] [phone] Social History Tobacco Use Types Packs/Day Years [...] LEATHA CARRILLO - [facility] [address] [facility] [address] [place] [phone] Brenda Clay MD [address] [facility] [address] [place] [address] 04/15/2026 10:00 AM EDT Office Visit [facility] at [facility] + [facility] [address] [facility] [address] [place] [address] Sena Dominguez PA [address] [facility] [place] [address] documented as of this encounter Visit Diagnoses Not on filedocumented in this encounter Care Teams Dust Mixer Relationship Specialty Start Date End Date Meme Steel MD [address] [place] [address] 105 [place] [address] PCP - General Pediatrics 06/05/18 04/25/22 No Pcp, Pcp PCP - General 06/08/22 07/19/22 Guadalupe Mcbride MD PCP - General Family Medicine 07/20/22 11/01/23 Sena Dominguez PA [address] [place] [address] [place] [address] PCP - BRADY Physician Bilingual Medical Assistant 11/02/23 Levy Barry MD [address] [place] [address] [place] [address] PCP - General Family Medicine 12/20/23 documented as of this encounter
--- OUTSIDE RECORDS SUMMARY | 2025-07-31 12:03 | XMS_ITS | Encounter Summary ---
Author Organization [facility] work ([facility]) Address [address] [place] [address] Care Team Providers Care Byproducts Maker Name Role Phone Meme Steel MD Primary Care Provider [phone] Pcp, Pcp Primary Care Provider Unavailabl Guadalupe Bardales MD Primary Care Provider [phone] Sena Dominguez Unavailable [phone] Levy Barry MD Primary Care Provider Unavailab le Source Comments The information that you have received may contain highly confidential and/or federally protected health information. This information has been disclosed to you from records protected by [facility]. The [...] the sender immediately.[facility] ([facility]) Encounter Details Date Type Department Care Team (Late st Contact Info) Description 2004 Historical Note [facility] Walmoo System Devyn Vásquez MD [address] [place] [address] [phone] Social History Tobacco Use Types Packs/Day Years [...] - [facility] [address] [facility] [address] [place] [phone] Brenda Clay MD [address] [facility] [address] [place] [address] 04/15/2026 10:00 AM EDT Office Visit [facility] [address] [facility] [address] [place] [address] Sena Dominguez PA [address] [facility] [place] [address] documented as of this encounter Visit Diagnoses Not on filedocumented in this encounter Care Teams Byproducts Maker Relationship Specialty Start Date End Date Meme Steel MD [address] [place] [address] 105 [place] [address] PCP - General Pediatrics 06/05/18 04/25/22 No Pcp, Pcp PCP - General 06/08/22 07/19/22 Guadalupe Mcbride MD PCP - General Family Medicine 07/20/22 11/01/23 Sena Dominguez PA [address] [place] [address] [place] [address] PCP - BRADY Physician Associate School Psychologist 11/02/23 Levy Barry MD [address] [place] [address] [place] [address] PCP - General Family Medicine 12/20/23 documented as of this encounter
--- OUTSIDE RECORDS SUMMARY | 2025-07-31 12:03 | XMS_ITS | Encounter Summary ---
Author Organization [facility] work ([facility]) Address [address] [facility] [address] [facility] [address] [place] [address] Care Team Providers Care Inspector Metal Can Name Role Phone Meme Steel MD Primary Care Provider [phone] Pcp, Pcp Primary Care Provider Unavailabl Guadalupe Bardales MD Primary Care Provider [phone] Sena Dominguez Unavailable [phone] Levy Barry MD Primary Care Provider Unavailab le Source Comments The information that you have received may contain highly confidential and/or federally protected health information. This information has been disclosed to you from records protected by [facility]. The law prohibits you [...] contact the sender immediately.[facility] ([facility]) Encounter Details Date Type Department Care Team (Late st Contact Info) Description 2004 Historical Note [facility] Progression Labs System Devyn Vásquez MD [address] [place] [address] [phone] Social History Tobacco Use Types Packs/Day Years [...] LEATHA CARRILLO - [facility] [address] [facility] [address] [place] [phone] Brenda Clay MD [address] [facility] [address] [place] [address] 04/15/2026 10:00 AM EDT Office Visit [facility]HA [facility] at [facility] + [facility] [address] [facility] [address] [place] [address] Sena Dominguez PA [address] [facility] [place] [address] documented as of this encounter Visit Diagnoses Not on filedocumented in this encounter Care Teams Inspector Metal Can Relationship Specialty Start Date End Date Meme Steel MD [address] [place] [address] 105 [place] [address] PCP - General Pediatrics 06/05/18 04/25/22 No Pcp, Pcp PCP - General 06/08/22 07/19/22 Guadalupe Mcbride MD PCP - General Family Medicine 07/20/22 11/01/23 Sena Dominguez PA [address] [place] [address] [place] [address] PCP - BRADY Physician Optical Designer 11/02/23 Levy Barry MD [address] [place] [address] [place] [address] PCP - General Family Medicine 12/20/23 documented as of this encounter
--- OUTSIDE RECORDS SUMMARY | 2025-07-31 12:03 | XMS_ITS | Encounter Summary ---
Author Organization [facility] work ([facility]) Address [address] [place] [address] Care Team Providers Care Workers' Compensation Mediator Name Role Phone Meme Steel MD Primary Care Provider [phone] Pcp, Pcp Primary Care Provider Unavailabl Guadalupe Bardales MD Primary Care Provider [phone] Sena Dominguez Unavailable [phone] Levy Barry MD Primary Care Provider Unavailab le Source Comments The information that you have received may contain highly confidential and/or federally protected health information. This information has been disclosed to you from records protected by [facility]. The law prohibits you from [...] contact the sender immediately.[facility] ([facility]) Encounter Details Date Type Department Care Team (Late st Contact Info) Description 2004 Historical Note [facility] TradeGig System Devyn Vásquez MD [address] [place] [address] [phone] Social History Tobacco Use Types Packs/Day Years [...] Visit LEATHA CARRILLO - [facility] [address] [facility] [address] [place] [phone] Brenda Clay MD [address] [facility] [address] [place] [address] 04/15/2026 10:00 AM EDT Office Visit [facility] at [facility] + [facility] [address] [facility] [address] [place] [address] Snea Dominguez PA [address] [facility] [place] [address] documented as of this encounter Visit Diagnoses Not on filedocumented in this encounter Care Teams Workers' Compensation Mediator Relationship Specialty Start Date End Date Meme Steel MD [address] [place] [address] 105 [place] [address] PCP - General Pediatrics 06/05/18 04/25/22 No Pcp, Pcp PCP - General 06/08/22 07/19/22 Guadalupe Mcbride MD PCP - General Family Medicine 07/20/22 11/01/23 Sena Dominguez PA [address] [place] [address] [place] [address] PCP - BRADY Physician Champagne Maker 11/02/23 Levy Barry MD [address] [place] [address] [place] [address] PCP - General Family Medicine 12/20/23 documented as of this encounter
--- OUTSIDE RECORDS SUMMARY | 2025-07-31 12:03 | XMS_ITS | Encounter Summary ---
Author Organization [facility] work ([facility]) Address [address] [place] [address] Care Team Providers Care Systems Developer Name Role Phone Meme Steel MD Primary Care Provider [phone] Pcp, Pcp Primary Care Provider Unavailabl Guadalupe Bardales MD Primary Care Provider [phone] Sena Dominguez Unavailable [phone] Levy Barry MD Primary Care Provider Unavailab le Source Comments The information that you have received may contain highly confidential and/or federally protected health information. This information has been disclosed to you from records protected by [facility]. The law prohibits you from making [...] immediately.[facility] ([facility]) Encounter Details Date Type Department Care Team (Late st Contact Info) Description 05/29/2006 Historical Note [facility] Bizily System Devyn Vásquez MD [address] [place] [address] [phone] Social History Tobacco Use Types Packs/Day Years [...] LEATHA CARRILLO - [facility] [address] [facility] [address] [place] [phone] Brenda Clay MD [address] [facility] [address] [place] [phone] 04/15/2026 10:00 AM EDT Office Visit [facility]HA [facility] at [facility] + [facility] [address] [facility] [address] [place] [address] Sena Dominguez PA [address] [facility] [place] [address] documented as of this encounter Visit Diagnoses Not on filedocumented in this encounter Care Teams Systems Developer Relationship Specialty Start Date End Date Meme Steel MD [address] [place] [address] 105 [place] [address] PCP - General Pediatrics 06/05/18 04/25/22 No Pcp, Pcp PCP - General 06/08/22 07/19/22 Guadalupe Mcbride MD PCP - General Family Medicine 07/20/22 11/01/23 Sena Dominguez PA [address] [place] [address] [place] [address] PCP - BRADY Physician Manager Truck 11/02/23 Levy Barry MD [address] [place] [address] [place] [address] PCP - General Family Medicine 12/20/23 documented as of this encounter
--- OUTSIDE RECORDS SUMMARY | 2025-07-31 12:03 | XMS_ITS | Encounter Summary ---
Author Organization [facility] work ([facility]) Address [address] [place] [address] Care Team Providers Care Government Auditor Name Role Phone Meme Steel MD Primary Care Provider [phone] Pcp, Pcp Primary Care Provider Unavailabl Guadalupe Bardales MD Primary Care Provider [phone] Sena Dominguez Unavailable [phone] Levy Barry MD Primary Care Provider Unavailab le Source Comments The information that you have received may contain highly confidential and/or federally protected health information. This information has been disclosed to you from records protected by [facility]. The law prohibits you [...] contact the sender immediately.[facility] ([facility]) Encounter Details Date Type Department Care Team (Late st Contact Info) Description 11/16/2006 Historical Note [facility] ADOMIC (formerly [employer]) System Devyn Vásquez MD [address] [place] [address] [phone] Social History Tobacco Use Types Packs/Day Years [...] CARRILLO - [facility] [address] [facility] [address] [place] [phone] Brenda Clay MD [address] [facility] [address] [place] [address] 04/15/2026 10:00 AM EDT Office Visit LE[facility]HA [facility] at [facility] + [facility] [place] [address] [facility] [address] [place] [address] Sena Dominguez PA [address] [facility] [place] [address] documented as of this encounter Visit Diagnoses Not on filedocumented in this encounter Care Teams Government Auditor Relationship Specialty Start Date End Date Meme Steel MD [address] [place] [address] 105 [place] [address] PCP - General Pediatrics 06/05/18 04/25/22 No Pcp, Pcp PCP - General 06/08/22 07/19/22 Guadalupe Mcbride MD PCP - General Family Medicine 07/20/22 11/01/23 Sena Dominguez PA [address] [place] [address] [place] [address] PCP - BRADY Physician Adjunct Psychology Instructor 11/02/23 Levy Barry MD [address] [place] [address] [place] [address] PCP - General Family Medicine 12/20/23 documented as of this encounter
--- OUTSIDE RECORDS SUMMARY | 2025-07-31 12:03 | XMS_ITS | Encounter Summary ---
Author Organization [facility] work ([facility]) Address [address] [place] [address] Care Team Providers Care Chief Transfer And Pumphouse Operator Name Role Phone Meme Steel MD Primary Care Provider [phone] Pcp, Pcp Primary Care Provider Unavailabl Guadalupe Bardales MD Primary Care Provider [phone] Sena Dominguez Unavailable [phone] Levy Barry MD Primary Care Provider Unavailab le Source Comments The information that you have received may contain highly confidential and/or federally protected health information. This information has been disclosed to you from records protected by [facility]. The law prohibits you from [...] please contact the sender immediately.[facility] ([facility]) Encounter Details Date Type Department Care Team (Late st Contact Info) Description 2004 Historical Note [facility] Wee Web System Devyn Vásquez MD [address] [place] [address] [phone] Social History Tobacco Use Types Packs/Day Years [...] LEATHA CARRILLO - [facility] [address] [facility] [address] [place] [phone] Brenda Clay MD [address] [facility] [address] [place] [address] 04/15/2026 10:00 AM EDT Office Visit [facility]HA [facility] at [facility] + [facility] [address] [facility] [address] [place] [address] Sena Dominguez PA [address] [facility] [place] [address] documented as of this encounter Visit Diagnoses Not on filedocumented in this encounter Care Teams Chief Transfer And Pumphouse Operator Relationship Specialty Start Date End Date Meme Steel MD [address] [place] [address] 105 [place] [address] PCP - General Pediatrics 06/05/18 04/25/22 No Pcp, Pcp PCP - General 06/08/22 07/19/22 Guadalupe Mcbride MD PCP - General Family Medicine 07/20/22 11/01/23 Sena Dominguez PA [address] [place] [address] [place] [address] PCP - BRADY Physician Infection Preventionist 11/02/23 Levy Barry MD [address] [place] [address] [place] [address] PCP - General Family Medicine 12/20/23 documented as of this encounter
--- OUTSIDE RECORDS SUMMARY | 2025-07-31 12:03 | XMS_ITS | Encounter Summary ---
Author Organization [facility] work ([facility]) Address [address] [place] [address] Care Team Providers Care Ammonium Hydroxide Operator Name Role Phone Meme Steel MD Primary Care Provider [phone] Pcp, Pcp Primary Care Provider Unavailabl Guadalupe Bardales MD Primary Care Provider [phone] Sena Dominguez Unavailable Levy Barry MD Primary Care Provider Unavailab le Source Comments The information that you have received may contain highly confidential and/or federally protected health information. This information has been disclosed to you from records protected by [facility]. The law prohibits you [...] contact the sender immediately.[facility] ([facility]) Encounter Details Date Type Department Care Team (Late st Contact Info) Description 2004 Historical Note [facility] [email or web address] System Devyn Vásquez MD [address] [place] [address] [phone] Social History Tobacco Use Types Packs/Day Years [...] LEATHA CARRILLO - [facility] [address] [facility] [address] [place] [phone] Brenda Clay MD [address] [facility] [address] [place] [phone] 04/15/2026 10:00 AM EDT Office Visit [facility]HA [facility] at [facility] + [facility] [address] [facility] [address] [place] [address] Sena Dominguez PA [address] [facility] [place] [address] documented as of this encounter Visit Diagnoses Not on filedocumented in this encounter Care Teams Ammonium Hydroxide Operator Relationship Specialty Start Date End Date Meme Steel MD [address] [place] [address] 105 [place] [address] PCP - General Pediatrics 06/05/18 04/25/22 No Pcp, Pcp PCP - General 06/08/22 07/19/22 Guadalupe Mcbride MD PCP - General Family Medicine 07/20/22 11/01/23 Sena Dominguez PA [address] [place] [address] [place] [address] PCP - BRADY Physician Claim Clinician 11/02/23 Levy Barry MD [address] [place] [address] [place] [address] PCP - General Family Medicine 12/20/23 documented as of this encounter
--- OUTSIDE RECORDS SUMMARY | 2025-07-31 12:03 | XMS_ITS | Encounter Summary ---
Author Organization [facility] work ([facility]) Address [address] [place] [address] Care Team Providers Care Charge Entry Clerk Name Role Phone Meme Steel MD Primary Care Provider [phone] Pcp, Pcp Primary Care Provider Unavailabl Guadalupe Bardales MD Primary Care Provider [phone] Sena Dominguez Unavailable [phone] Levy Barry MD Primary Care Provider Unavailab le Source Comments The information that you have received may contain highly confidential and/or federally protected health information. This information has been disclosed to you from records protected by [facility]. The [...] error, please contact the sender immediately.[facility] ([facility]) Encounter Details Date Type Department Care Team (Late st Contact Info) Description 2004 Historical Note SVMG NetMovie System Devyn Vásquez MD [address] [place] [address] [id number] Social History Tobacco Use Types Packs/Day Years [...] Visit LEATHA CARRILLO - [facility] [address] [facility] [address] [place] [phone] Brenda Clay MD [address] [facility] [address] [place] [address] 04/15/2026 10:00 AM EDT Office Visit [facility]HA [facility] + [facility] [address] [place] [address] Sena Dominguez PA [address] [facility] [place] [address] documented as of this encounter Visit Diagnoses Not on filedocumented in this encounter Care Teams Charge Entry Clerk Relationship Specialty Start Date End Date Meme Steel MD [address] [place] [address] [address] [place] [address] PCP - General Pediatrics 06/05/18 04/25/22 No Pcp, Pcp PCP - General 06/08/22 07/19/22 Guadalupe Mcbride MD PCP - General Family Medicine 07/20/22 11/01/23 Sena Dominguez PA [address] [place] [address] [place] [address] PCP - BRADY Physician Window Cutter 11/02/23 Levy Barry MD [address] [place] [address] [place] [address] PCP - General Family Medicine 12/20/23 documented as of this encounter
--- OUTSIDE RECORDS SUMMARY | 2025-07-31 12:03 | XMS_ITS | Encounter Summary ---
Author Organization [facility] work ([facility]) Address [address] [place] [address] Care Team Providers Care Structural Manager Name Role Phone Meme Steel MD Primary Care Provider [phone] Pcp, Pcp Primary Care Provider Unavailabl Guadalupe Bardales MD Primary Care Provider [phone] Sena Dominguez Unavailable [phone] Levy Barry MD Primary Care Provider Unavailab le Source Comments The information that you have received may contain highly confidential and/or federally protected health information. This information has been disclosed to you from records protected by [facility]. The law prohibits you from making [...] error, please contact the sender immediately.[facility] ([facility]) Encounter Details Date Type Department Care Team (Late st Contact Info) Description 2004 Historical Note SVMG ModeWalk System Devyn Vásquez MD [address] [place] [address] [phone] Social History Tobacco Use Types Packs/Day Years [...] LEATHA CARRILLO - [facility] [address] [facility] [address] [place] [phone] Brenda Clay MD [address] [facility] [address] [place] [address] 04/15/2026 10:00 AM EDT Office Visit [facility]HA [facility] at [facility] + [facility] [address] [facility] [address] [facility] [address] [place] [address] Sena Dominguez PA [address] [facility] [place] [address] documented as of this encounter Visit Diagnoses Not on filedocumented in this encounter Care Teams Structural Manager Relationship Specialty Start Date End Date Meme Steel MD [address] [place] [address] 105 [place] [address] PCP - General Pediatrics 06/05/18 04/25/22 No Pcp, Pcp PCP - General 06/08/22 07/19/22 Guadalupe Mcbride MD PCP - General Family Medicine 07/20/22 11/01/23 Sena Dominguez PA [address] [place] [address] [place] [address] PCP - BRADY Physician Herpetology Teacher 11/02/23 Levy Barry MD [address] [place] [address] [place] [address] PCP - General Family Medicine 12/20/23 documented as of this encounter
--- OUTSIDE RECORDS SUMMARY | 2025-07-31 12:03 | XMS_ITS | Encounter Summary ---
Author Organization [facility] work ([facility]) Address [address] [place] [address] Care Team Providers Care Expediter Service Order Name Role Phone Meme Steel MD Primary Care Provider [phone] Pcp, Pcp Primary Care Provider Unavailabl Guadalupe Bardales MD Primary Care Provider [phone] Sena Dominguez Unavailable [phone] Levy Barry MD Primary Care Provider Unavailab le Source Comments The information that you have received may contain highly confidential and/or federally protected health information. This information has been disclosed to you from records protected by [facility]. The law prohibits you [...] [facility] ([facility]) Encounter Details Date Type Department Care Team (Late st Contact Info) Description 06/26/2007 Historical Note SVMG Visualmarks System Devyn Vásquez MD [address] [place] [address] [phone] Social History Tobacco Use Types Packs/Day Years [...] - [facility] [address] [facility] [address] [place] [phone] Brenda Clay MD [address] [facility] [address] [place] [address] 04/15/2026 10:00 AM EDT Office Visit LE[facility]HA [facility] at [facility] + [facility] [address] [facility] [address] [place] [address] Sena Dominguez PA [address] [facility] [place] [address] documented as of this encounter Visit Diagnoses Not on filedocumented in this encounter Care Teams Expediter Service Order Relationship Specialty Start Date End Date Meme Steel MD [address] [place] [address] 105 [place] [address] PCP - General Pediatrics 06/05/18 04/25/22 No Pcp, Pcp PCP - General 06/08/22 07/19/22 Guadalupe Mcbride MD PCP - General Family Medicine 07/20/22 11/01/23 Sena Dominguez PA [address] [place] [address] [place] [address] PCP - BRADY Physician Cutter Wet Machine 11/02/23 Levy Barry MD [address] [place] [address] [place] [address] PCP - General Family Medicine 12/20/23 documented as of this encounter
--- OUTSIDE RECORDS SUMMARY | 2025-07-31 12:03 | XMS_ITS | Encounter Summary ---
Author Organization [facility] work ([facility]) Address [address] [place] [address] Care Team Providers Care Metal Sprayer Machined Parts Name Role Phone Meme Steel MD Primary Care Provider [phone] Pcp, Pcp Primary Care Provider Unavailabl Guadalupe Bardales MD Primary Care Provider [phone] Sena Dominguez Unavailable [phone] Levy Barry MD Primary Care Provider Unavailab le Source Comments The information that you have received may contain highly confidential and/or federally protected health information. This information has been disclosed to you from records protected by [facility]. The law prohibits you [...] [facility] ([facility]) Encounter Details Date Type Department Care Team (Late st Contact Info) Description 11/16/2006 Historical Note [facility]G Zvooq System Devyn Vásquez MD [address] [place] [address] [phone] Social History Tobacco Use Types Packs/Day Years [...] CARRILLO - [facility] [address] [facility] [address] [place] [phone] Brenda Clay MD [address] [facility] [address] [place] [address] 04/15/2026 10:00 AM EDT Office Visit LE[facility]HA [facility] at [facility] + [facility] [address] [facility] [address] [place] [address] Sena Dominguez PA [address] [facility] [place] [address] documented as of this encounter Visit Diagnoses Not on filedocumented in this encounter Care Teams Metal Sprayer Machined Parts Relationship Specialty Start Date End Date Meme Steel MD [address] [place] [address] 105 [place] [address] PCP - General Pediatrics 06/05/18 04/25/22 No Pcp, Pcp PCP - General 06/08/22 07/19/22 Guadalupe Mcbride MD PCP - General Family Medicine 07/20/22 11/01/23 Sena Dominguez PA [address] [place] [address] [place] [address] PCP - BRADY Physician Manual Tester 11/02/23 Levy Barry MD [address] [place] [address] [place] [address] PCP - General Family Medicine 12/20/23 documented as of this encounter
--- OUTSIDE RECORDS SUMMARY | 2025-07-31 12:03 | XMS_ITS | Encounter Summary ---
Author Organization [facility] work ([facility]) Address [address] [place] [address] Care Team Providers Care Cutting Department Supervisor Name Role Phone Meme Steel MD Primary Care Provider [phone] Pcp, Pcp Primary Care Provider Unavailabl Guadalupe Bardales MD Primary Care Provider [phone] Sena Dominguez Unavailable [phone] Levy Barry MD Primary Care Provider Unavailab le Source Comments The information that you have received may contain highly confidential and/or federally protected health information. This information has been disclosed to you from records protected by [facility]. The law prohibits you [...] sender immediately.[facility] ([facility]) Encounter Details Date Type Department Care Team (Late st Contact Info) Description 06/26/2007 Historical Note SVMG Hakia System Devyn Vásquez MD [address] [place] [address] [phone] Social History Tobacco Use Types Packs/Day Years [...] CARRILLO - [facility] [address] [facility] [address] [place] [phone] Brenda Clay MD [address] [facility] [address] [place] [phone] 04/15/2026 10:00 AM EDT Office Visit [facility]HA [facility] at [facility] + [facility] [address] [facility] [address] [place] [address] Sena Dominguez PA [address] [facility] [place] [address] documented as of this encounter Visit Diagnoses Not on filedocumented in this encounter Care Teams Cutting Department Supervisor Relationship Specialty Start Date End Date Meme Steel MD [address] [place] [address] 105 [place] [address] PCP - General Pediatrics 06/05/18 04/25/22 No Pcp, Pcp PCP - General 06/08/22 07/19/22 Guadalupe Mcbride MD PCP - General Family Medicine 07/20/22 11/01/23 Sena Dominguez PA [address] [place] [address] [place] [address] PCP - BRADY Physician Dx Board Operator 11/02/23 Levy Barry MD [address] [place] [address] [place] [address] PCP - General Family Medicine 12/20/23 documented as of this encounter
--- OUTSIDE RECORDS SUMMARY | 2025-07-31 12:03 | XMS_ITS | Encounter Summary ---
Author Organization [facility] work ([facility]) Address [address] [place] [address] Care Team Providers Care Press Puller Name Role Phone Meme Steel MD Primary Care Provider [phone] Pcp, Pcp Primary Care Provider Unavailabl Guadalupe Bardales MD Primary Care Provider [phone] Sena Dominguez Unavailable [phone] Levy Barry MD Primary Care Provider Unavailab le Source Comments The information that you have received may contain highly confidential and/or federally protected health information. This information has been disclosed to you from records protected by [facility]. The law prohibits you from [...] please contact the sender immediately.[facility] ([facility]) Encounter Details Date Type Department Care Team (Late st Contact Info) Description 2004 Historical Note SVMG Cureeo System Devyn Vásquez MD [address] [place] [address] [phone] Social History Tobacco Use Types Packs/Day Years [...] CARRILLO - [facility] [address] [facility] [address] [place] [phone] Brenda Clay MD [address] [facility] [address] [place] [phone] 04/15/2026 10:00 AM EDT Office Visit LEATHA Primary [facility] at [facility] + [facility] [address] [facility] [address] [place] [address] Sena Dominguez PA [address] [facility] [place] [address] documented as of this encounter Visit Diagnoses Not on filedocumented in this encounter Care Teams Press Puller Relationship Specialty Start Date End Date Meme Steel MD [address] [place] [address] 105 [place] [address] PCP - General Pediatrics 06/05/18 04/25/22 No Pcp, Pcp PCP - General 06/08/22 07/19/22 Guadalupe Mcbride MD PCP - General Family Medicine 07/20/22 11/01/23 Sena Dominguez PA [address] [place] [address] [place] [address] PCP - BRADY Physician Motor Carrier Inspector 11/02/23 Levy Barry MD [address] [place] [address] [place] [address] PCP - General Family Medicine 12/20/23 documented as of this encounter
--- OUTSIDE RECORDS SUMMARY | 2025-07-31 12:03 | XMS_ITS | Encounter Summary ---
Author Organization [facility] work ([facility]) Address [address] [place] [address] Care Team Providers Care Manager Behavioral Name Role Phone Meme Steel MD Primary Care Provider [phone] No Pcp, Pcp Primary Care Provider Unavailabl Guadalupe Bardales MD Primary Care Provider [phone] Sena Dominguez Unavailable [phone] Levy Barry MD Primary Care Provider Unavailab le Source Comments The information that you have received may contain highly confidential and/or federally protected health information. This information has been disclosed to you from records protected by [facility]. The law prohibits you [...] the sender immediately.[facility] ([facility]) Encounter Details Date Type Department Care Team (Late st Contact Info) Description 2004 Historical Note SVMG Tribogenics System Devyn Vásquez MD [address] [place] [address] [phone] Social History Tobacco Use Types Packs/Day Years [...] LEATHA CARRILLO - [facility] [address] [facility] [address] [place] [phone] Brenda Clay MD [address] [facility] [address] [place] [phone] 04/15/2026 10:00 AM EDT Office Visit LEATHA [facility] + [facility] [address] [facility] [address] [place] [address] Sena Dominguez PA [address] [facility] [place] [address] documented as of this encounter Visit Diagnoses Not on filedocumented in this encounter Care Teams Manager Behavioral Relationship Specialty Start Date End Date Meme Steel MD [address] [place] [address] 105 [place] [address] PCP - General Pediatrics 06/05/18 04/25/22 No Pcp, Pcp PCP - General 06/08/22 07/19/22 Guadalupe Mcbride MD PCP - General Family Medicine 07/20/22 11/01/23 Sena Dominguez PA [address] [place] [address] [place] [address] PCP - BRADY Physician Instructor Watch Assembly 11/02/23 Levy Barry MD [address] [place] [address] [place] [address] PCP - General Family Medicine 12/20/23 documented as of this encounter
--- OUTSIDE RECORDS SUMMARY | 2025-07-31 12:03 | XMS_ITS | Encounter Summary ---
Author Organization [facility] work ([facility]) Address [address] [place] [address] Care Team Providers Care Heavy Cleaner Name Role Phone Meme Steel MD Primary Care Provider [phone] Pcp, Pcp Primary Care Provider Unavailabl Guadalupe Bardales MD Primary Care Provider [phone] Sena Dominguez Unavailable [phone] Levy Barry MD Primary Care Provider Unavailab le Source Comments The information that you have received may contain highly confidential and/or federally protected health information. This information has been disclosed to you from records protected by [facility]. The law prohibits you [...] contact the sender immediately.[facility] ([facility]) Encounter Details Date Type Department Care Team (Late st Contact Info) Description 05/29/2006 Historical Note SVMG Soum System Devyn Vásquez MD [address] [place] [address] [phone] Social History Tobacco Use Types Packs/Day Years [...] Visit LEATHA CARRILLO - [facility] [address] [facility] [address] [place] [phone] Brenda Clay MD [address] [facility] [address] [place] [address] 04/15/2026 10:00 AM EDT Office Visit LEATHA Primary [facility] at [facility] + [facility] [address] [facility] [address] [place] [address] Sean Dominguez PA [address] [facility] [place] [address] documented as of this encounter Visit Diagnoses Not on filedocumented in this encounter Care Teams Heavy Cleaner Relationship Specialty Start Date End Date Meme Steel MD [address] [place] [address] 105 [place] [address] PCP - General Pediatrics 06/05/18 04/25/22 No Pcp, Pcp PCP - General 06/08/22 07/19/22 Guadalupe Mcbride MD PCP - General Family Medicine 07/20/22 11/01/23 Sena Dominguez PA [address] [place] [address] [place] [address] PCP - BRADY Physician Cigar Packing Examiner 11/02/23 Levy Barry MD [address] [place] [address] [place] [address] PCP - General Family Medicine 12/20/23 documented as of this encounter
--- OUTSIDE RECORDS SUMMARY | 2025-07-31 12:03 | XMS_ITS | Encounter Summary ---
Author Organization [facility] work ([facility]) Address [address] [place] [address] Care Team Providers Care Ceo And Co Founder Name Role Phone Meme Steel MD Primary Care Provider [phone] Pcp, Pcp Primary Care Provider Unavailabl Guadalupe Bardales MD Primary Care Provider [phone] Sena Dominguez Unavailable [phone] Levy Barry MD Primary Care Provider Unavailab le Source Comments The information that you have received may contain highly confidential and/or federally protected health information. This information has been disclosed to you from records protected by [facility]. The law prohibits you [...] contact the sender immediately.[facility] ([facility]) Encounter Details Date Type Department Care Team (Late st Contact Info) Description 06/14/2007 Historical Note SVMG Slack System Devyn Vásquez MD [address] [place] [address] [phone] Social History Tobacco Use Types Packs/Day Years [...] [facility] [address] [facility] [address] [place] [phone] Brenda Clay MD [address] [facility] [address] [place] [address] 04/15/2026 10:00 AM EDT Office Visit LEATHA [facility] at [facility] + [facility] [address] [facility] [address] [place] [address] Sena Dominguez PA [address] [facility] [place] [address] documented as of this encounter Visit Diagnoses Not on filedocumented in this encounter Care Teams Ceo And Co Founder Relationship Specialty Start Date End Date Meme Steel MD [address] [place] [address] 105 [place] [address] PCP - General Pediatrics 06/05/18 04/25/22 No Pcp, Pcp PCP - General 06/08/22 07/19/22 Guadalupe Mcbride MD PCP - General Family Medicine 07/20/22 11/01/23 Sena Dominguez PA [address] [place] [address] [place] [address] PCP - BRADY Physician Anvilsmith 11/02/23 Levy Barry MD [address] [place] [address] [place] [address] PCP - General Family Medicine 12/20/23 documented as of this encounter
--- OUTSIDE RECORDS SUMMARY | 2025-07-31 12:03 | XMS_ITS | Encounter Summary ---
Author Organization [facility] work ([facility]) Address [address] [place] [address] Care Team Providers Care Recovery Unit Operator Name Role Phone Meme Steel MD Primary Care Provider No Pcp, Pcp Primary Care Provider Unavailabl Guadalupe Bardales MD Primary Care Provider [phone] Sena Dominguez Unavailable [phone] Levy Barry MD Primary Care Provider Unavailab le Source Comments The information that you have received may contain highly confidential and/or federally protected health information. This information has been disclosed to you from records protected by [email or web address]. The law prohibits you from [...] immediately.[facility] ([facility]) Encounter Details Date Type Department Care Team (Late st Contact Info) Description 2004 Historical Note SVMG [employer] System Devyn Vásquez MD [address] [place] [address] [phone] Social History Tobacco Use Types Packs/Day Years [...] LEATHA CARRILLO - [facility] [address] [facility] [address] [place] [phone] Brenda Clay MD [address] [facility] [address] [place] [address] 04/15/2026 10:00 AM EDT Office Visit LEATHA [facility] at [facility] + [facility] [address] [facility] [address] [place] [address] Sena Dominguez PA [address] [facility] [place] [address] documented as of this encounter Visit Diagnoses Not on filedocumented in this encounter Care Teams Recovery Unit Operator Relationship Specialty Start Date End Date Meme Steel MD [address] [place] [address] 105 [place] [address] PCP - General Pediatrics 06/05/18 04/25/22 No Pcp, Pcp PCP - General 06/08/22 07/19/22 Guadalupe Mcbride MD PCP - General Family Medicine 07/20/22 11/01/23 Sena Dominguez PA [address] [place] [address] [place] [address] PCP - BRADY Physician Passenger Vessel Chef 11/02/23 Levy Barry MD [address] [place] [address] [place] [address] PCP - General Family Medicine 12/20/23 documented as of this encounter
--- OUTSIDE RECORDS SUMMARY | 2025-07-31 12:03 | XMS_ITS | Encounter Summary ---
Author Organization [facility] work ([facility]) Address [address] [place] [address] Care Team Providers Care Terrazzo Layer Name Role Phone Meme Steel MD Primary Care Provider [phone] Pcp, Pcp Primary Care Provider Unavailabl Guadalupe Bardales MD Primary Care Provider [phone] Sena Dominguez Unavailable [phone] Levy Barry MD Primary Care Provider Unavailab le Source Comments The information that you have received may contain highly confidential and/or federally protected health information. This information has been disclosed to you from records protected by [facility]. The law prohibits you [...] please contact the sender immediately.[facility] ([facility]) Encounter Details Date Type Department Care Team (Late st Contact Info) Description 2004 Historical Note SVMG Air[employer] System Devyn Vásquez MD [address] [place] [address] [phone] Social History Tobacco Use Types Packs/Day Years [...] CARRILLO - [facility] [address] [place] [phone] Brenda Clay MD [address] [facility] [address] [place] [phone] 04/15/2026 10:00 AM EDT Office Visit [facility] [address] [facility] [address] [place] [address] Sena Dominguez PA [address] [facility] [place] [address] documented as of this encounter Visit Diagnoses Not on filedocumented in this encounter Care Teams Terrazzo Layer Relationship Specialty Start Date End Date Meme Steel MD [address] [place] [address] 105 [place] [address] PCP - General Pediatrics 06/05/18 04/25/22 No Pcp, Pcp PCP - General 06/08/22 07/19/22 Guadalupe Mcbride MD PCP - General Family Medicine 07/20/22 11/01/23 Sena Dominguez PA [address] [place] [address] [place] [address] PCP - BRADY Physician Rate Examiner 11/02/23 Levy Barry MD [address] [place] [address] [place] [address] PCP - General Family Medicine 12/20/23 documented as of this encounter
--- OUTSIDE RECORDS SUMMARY | 2025-07-31 12:03 | XMS_ITS | Encounter Summary ---
Author Organization [facility] work ([facility]) Address [address] [place] [address] Care Team Providers Care Expanded Function Dental Assistant Name Role Phone Meme Steel MD Primary Care Provider [phone] Pcp, Pcp Primary Care Provider Unavailabl Guadalupe Bardales MD Primary Care Provider [phone] Sena Dominguez Unavailable [phone] Levy Barry MD Primary Care Provider Unavailab le Source Comments The information that you have received may contain highly confidential and/or federally protected health information. This information has been disclosed to you from records protected by [facility]. The law prohibits you from making [...] immediately.[facility] ([facility]) Encounter Details Date Type Department Care Team (Late st Contact Info) Description 05/29/2006 Historical Note SVMG Getonic System Devyn Vásquez MD [address] [place] [address] [phone] Social History Tobacco Use Types Packs/Day Years [...] LEATHA CARRILLO - [facility] [address] [facility] [address] [place] [phone] Brenda Clay MD [address] [facility] [address] [place] [address] 04/15/2026 10:00 AM EDT Office Visit [facility] at [facility] [address] [facility] [address] [place] [address] Sena Dominguez PA [address] [facility] [place] [address] documented as of this encounter Visit Diagnoses Not on filedocumented in this encounter Care Teams Expanded Function Dental Assistant Relationship Specialty Start Date End Date Meme Steel MD [address] [place] [address] 105 [place] [address] PCP - General Pediatrics 06/05/18 04/25/22 No Pcp, Pcp PCP - General 06/08/22 07/19/22 Guadalupe Mcbride MD PCP - General Family Medicine 07/20/22 11/01/23 Sena Dominguez PA [address] [place] [address] [place] [address] PCP - BRADY Physician Residency Program Coordinator 11/02/23 Levy Barry MD [address] [place] [address] [place] [address] PCP - General Family Medicine 12/20/23 documented as of this encounter
--- OUTSIDE RECORDS SUMMARY | 2025-07-31 12:03 | XMS_ITS | Encounter Summary ---
Author Organization [facility] work ([facility]) Address [address] [place] [address] Care Team Providers Care Coroner Transport Technician Name Role Phone Meme Steel MD Primary Care Provider [phone] Pcp, Pcp Primary Care Provider Unavailabl Guadalupe Bardales MD Primary Care Provider [phone] Sena Dominguez Unavailable [phone] Levy Barry MD Primary Care Provider Unavailab le Source Comments The information that you have received may contain highly confidential and/or federally protected health information. This information has been disclosed to you from records protected by [facility]. The law prohibits you from [...] contact the sender immediately.[facility] ([facility]) Encounter Details Date Type Department Care Team (Late st Contact Info) Description 2004 Historical Note SVMG Elimi System Devyn Vásquez MD [address] [place] [address] [phone] Social History Tobacco Use Types Packs/Day Years [...] Visit LEATHA CARRILLO - [facility] [address] [facility] [address] [place] [phone] Brenda Clay MD [address] [facility] [address] [place] [address] 04/15/2026 10:00 AM EDT Office Visit LEATHA [facility] at [facility] + [facility] [address] [facility] [address] [place] [address] Sena Dominguez PA [address] [facility] [place] [address] documented as of this encounter Visit Diagnoses Not on filedocumented in this encounter Care Teams Coroner Transport Technician Relationship Specialty Start Date End Date Meme Steel MD [address] [place] [address] 105 [place] [address] PCP - General Pediatrics 06/05/18 04/25/22 No Pcp, Pcp PCP - General 06/08/22 07/19/22 Guadalupe Mcbride MD PCP - General Family Medicine 07/20/22 11/01/23 Sena Dominguez PA [address] [place] [address] [place] [address] PCP - BRADY Physician Cook Ice Cream 11/02/23 Levy Barry MD [address] [place] [address] [place] [address] PCP - General Family Medicine 12/20/23 documented as of this encounter
--- OUTSIDE RECORDS SUMMARY | 2025-07-31 12:04 | XMS_ITS | Encounter Summary ---
Author Organization [facility] work ([facility]) Address [address] [place] [address] Care Team Providers Care Public Safety Teacher Name Role Phone Meme Steel MD Primary Care Provider [phone] Pcp, Pcp Primary Care Provider Unavailabl Guadalupe Bardales MD Primary Care Provider [phone] Sena Dominguez Unavailable [phone] Levy Barry MD Primary Care Provider Unavailab le Source Comments The information that you have received may contain highly confidential and/or federally protected health information. This information has been disclosed to you from records protected by [facility]. The law prohibits you from [...] information in error, please contact the sender immediately.[facility] ([facility]) Encounter Details Date Type Department Care Team (Late st Contact Info) Description 05/24/2012 Historical Note SVMG [employer] System Devyn Vásquez MD [address] [place] [address] [phone] Social History Tobacco Use Types Packs/Day Years [...] Visit LEATHA CARRILLO - [facility] [address] [facility] [address] [place] [phone] Brenda Clay MD [address] [facility] [address] [place] [address] 04/15/2026 10:00 AM EDT Office Visit [facility]HA [facility] at [facility] + [facility] [address] [facility] [address] [place] [address] Sena Dominguez PA [address] [facility] [place] [address] documented as of this encounter Visit Diagnoses Not on filedocumented in this encounter Care Teams Public Safety Teacher Relationship Specialty Start Date End Date Meme Steel MD [address] [place] [address] 105 [place] [address] PCP - General Pediatrics 06/05/18 04/25/22 No Pcp, Pcp PCP - General 06/08/22 07/19/22 Guadalupe Mcbirde MD PCP - General Family Medicine 07/20/22 11/01/23 Sena Dominguez PA [address] [place] [address] [place] [address] PCP - BRADY Physician Care Management Coordinator 11/02/23 Levy Barry MD [address] [place] [address] [place] [address] PCP - General Family Medicine 12/20/23 documented as of this encounter
--- OUTSIDE RECORDS SUMMARY | 2025-07-31 12:04 | XMS_ITS | Encounter Summary ---
Author Organization [facility] work ([facility]) Address [address] [place] [address] Care Team Providers Care Cell Tender Helper Name Role Phone Meme Steel MD Primary Care Provider [phone] Pcp, Pcp Primary Care Provider Unavailabl Guadalupe Bardales MD Primary Care Provider [phone] Sena Dominguez Unavailable [phone] Levy Barry MD Primary Care Provider Unavailab le Source Comments The information that you have received may contain highly confidential and/or federally protected health information. This information has been disclosed to you from records protected by [facility]. The law prohibits you [...] contact the sender immediately.[facility] ([facility]) Encounter Details Date Type Department Care Team (Late st Contact Info) Description 02/08/2006 Historical Note [facility]G [employer] System Devyn Vásquez MD [address] [place] [address] [phone] Social History Tobacco Use Types Packs/Day Years [...] CARRILLO - [facility] [employer] [address] [facility] [address] [place] [phone] Brenda Clay MD [address] [facility] [address] [place] [address] 04/15/2026 10:00 AM EDT Office Visit LE[facility]HA [facility] at [facility] [address] [facility] [address] [place] [address] Sena Dominguez PA [address] [facility] [place] [address] documented as of this encounter Visit Diagnoses Not on filedocumented in this encounter Care Teams Cell Tender Helper Relationship Specialty Start Date End Date Meme Steel MD [address] [place] [address] 105 [place] [address] PCP - General Pediatrics 06/05/18 04/25/22 No Pcp, Pcp PCP - General 06/08/22 07/19/22 Guadalupe Mcbride MD PCP - General Family Medicine 07/20/22 11/01/23 Sena Dominguez PA [address] [place] [address] [place] [address] PCP - BRADY Physician Agricultural Service Worker 11/02/23 Levy Barry MD [address] [place] [address] [place] [address] PCP - General Family Medicine 12/20/23 documented as of this encounter
--- OUTSIDE RECORDS SUMMARY | 2025-07-31 12:04 | XMS_ITS | Encounter Summary ---
Author Organization [facility] work ([facility]) Address [address] [place] [address] Care Team Providers Care Tree And Shrub Worker Name Role Phone Meme Steel MD Primary Care Provider [phone] Pcp, Pcp Primary Care Provider Unavailabl Guadalupe Bardales MD Primary Care Provider [phone] Sena Dominguez Unavailable [phone] Levy Barry MD Primary Care Provider Unavailab le Source Comments The information that you have received may contain highly confidential and/or federally protected health information. This information has been disclosed to you from records protected by [facility]. The law prohibits you [...] please contact the sender immediately.[facility] ([facility]) Encounter Details Date Type Department Care Team (Late st Contact Info) Description 09/16/2012 Historical Note SVMG [employer]S Rep[employer] System Devny Vásquez MD [address] [place] [address] [phone] Social History Tobacco Use Types Packs/Day Years [...] LEATHA CARRILLO - [facility] [address] [facility] [address] [place] [phone] Brenda Clay MD [address] [facility] [address] [place] [address] 04/15/2026 10:00 AM EDT Office Visit LEATHA [facility] at [facility] + [facility] [address] [facility] [address] [place] [address] Sena Dominguez PA [address] [facility] [place] [address] documented as of this encounter Visit Diagnoses Not on filedocumented in this encounter Care Teams Tree And Shrub Worker Relationship Specialty Start Date End Date Meme Steel MD [address] [place] [address] 105 [place] [address] PCP - General Pediatrics 06/05/18 04/25/22 No Pcp, Pcp PCP - General 06/08/22 07/19/22 Guadalupe Mcbride MD PCP - General Family Medicine 07/20/22 11/01/23 Sena Dominguez PA [address] [place] [address] [place] [address] PCP - BRADY Physician Outpatient Case Manager 11/02/23 Levy Barry MD [address] [place] [address] [place] [address] PCP - General Family Medicine 12/20/23 documented as of this encounter
--- OUTSIDE RECORDS SUMMARY | 2025-07-31 12:04 | XMS_ITS | Encounter Summary ---
Author Organization [facility] work ([facility]) Address [address] [place] [address] Care Team Providers Care Heavy Coil Winder Name Role Phone Meme Steel MD Primary Care Provider No Pcp, Pcp Primary Care Provider Unavailabl Guadalupe Bardales MD Primary Care Provider [phone] Sena Dominguez Unavailable [phone] Levy Barry MD Primary Care Provider Unavailab le Source Comments The information that you have received may contain highly confidential and/or federally protected health information. This information has been disclosed to you from records protected by [employer] [facility]. The law prohibits [...] contact the sender immediately.[facility] ([facility]) Encounter Details Date Type Department Care Team (Late st Contact Info) Description 05/21/2012 Historical Note SVMG Zendesk System Devyn Vásquez MD [address] [place] [address] [phone] Social History Tobacco Use Types Packs/Day Years [...] LEATHA CARRILLO - [facility] [address] [facility] [address] [place] [phone] Brenda Clay MD [address] [facility] [address] [place] [phone] 04/15/2026 10:00 AM EDT Office Visit LEATHA [facility] at [facility] [address] [facility] [address] [place] [address] Sena Dominguez PA [address] [facility] [place] [address] documented as of this encounter Visit Diagnoses Not on filedocumented in this encounter Care Teams Heavy Coil Winder Relationship Specialty Start Date End Date Meme Steel MD [address] [place] [address] 105 [place] [address] PCP - General Pediatrics 06/05/18 04/25/22 No Pcp, Pcp PCP - General 06/08/22 07/19/22 Guadalupe Mcbride MD PCP - General Family Medicine 07/20/22 11/01/23 Sena Dominguez PA [address] [place] [address] [place] [address] PCP - BRADY Physician Typesetter Apprentice 11/02/23 Levy Barry MD [address] [place] [address] [place] [address] PCP - General Family Medicine 12/20/23 documented as of this encounter
--- OUTSIDE RECORDS SUMMARY | 2025-07-31 12:04 | XMS_ITS | Encounter Summary ---
Author Organization [facility] work ([facility]) Address [address] [place] [address] Care Team Providers Care Optometry Teacher Name Role Phone Meme Steel MD Primary Care Provider [phone] Pcp, Pcp Primary Care Provider Unavailabl Guadalupe Bardales MD Primary Care Provider [phone] Sena Dominguez Unavailable [phone] Levy Barry MD Primary Care Provider Unavailab le Source Comments The information that you have received may contain highly confidential and/or federally protected health information. This information has been disclosed to you from records protected by [facility]. The law prohibits you from making [...] please contact the sender immediately.[facility] ([facility]) Encounter Details Date Type Department Care Team (Late st Contact Info) Description 01/23/2006 Historical Note SVMG Chef Surfing System Devyn Vásquez MD [address] [place] [address] [phone] Social History Tobacco Use Types Packs/Day Years [...] Visit LEATHA CARRILLO - [facility] [address] [facility] [address] [place] [phone] Brenda Clay MD [address] [facility] [address] [place] [address] 04/15/2026 10:00 AM EDT Office Visit LEATHA Primary Care at [facility] + [facility] [address] [facility] [address] [place] [address] Sena Dominguez PA [address] [facility] [place] [address] documented as of this encounter Visit Diagnoses Not on filedocumented in this encounter Care Teams Optometry Teacher Relationship Specialty Start Date End Date Meme Steel MD [address] [place] [address] 105 [place] [address] PCP - General Pediatrics 06/05/18 04/25/22 No Pcp, Pcp PCP - General 06/08/22 07/19/22 Guadalupe Mcbride MD PCP - General Family Medicine 07/20/22 11/01/23 Sena Dominguez PA [address] [place] [address] [place] [address] PCP - BRADY Physician Military Logistics Specialist 11/02/23 Levy Barry MD [address] [place] [address] [place] [address] PCP - General Family Medicine 12/20/23 documented as of this encounter
--- OUTSIDE RECORDS SUMMARY | 2025-07-31 12:04 | XMS_ITS | Encounter Summary ---
Author Organization [facility] work ([facility]) Address [address] [place] [address] Care Team Providers Care Tire Specialist Name Role Phone Meme Steel MD Primary Care Provider [phone] Pcp, Pcp Primary Care Provider Unavailabl Guadalupe Bardales MD Primary Care Provider [phone] Sena Dominguez Unavailable [phone] Levy Barry MD Primary Care Provider Unavailab le Source Comments The information that you have received may contain highly confidential and/or federally protected health information. This information has been disclosed to you from records protected by [employer] [facility]. The law prohibits you [...] contact the sender immediately.[facility] ([facility]) Encounter Details Date Type Department Care Team (Late st Contact Info) Description 05/08/2012 Historical Note SVMG Raising IT System Devyn Vásquez MD [address] [place] [address] [phone] Social History Tobacco Use Types Packs/Day Years [...] - [facility] [address] [facility] [address] [place] [phone] Brenda Clay MD [address] [facility] [address] [place] [address] 04/15/2026 10:00 AM EDT Office Visit LEATHA Primary [facility] at [facility] + [facility] [address] [facility] [address] [place] [address] Sena Doimnguez PA [address] [facility] [place] [address] documented as of this encounter Visit Diagnoses Not on filedocumented in this encounter Care Teams Tire Specialist Relationship Specialty Start Date End Date Meme Steel MD [address] [place] [address] 105 [place] [address] PCP - General Pediatrics 06/05/18 04/25/22 No Pcp, Pcp PCP - General 06/08/22 07/19/22 Guadalupe Mcbride MD PCP - General Family Medicine 07/20/22 11/01/23 Sena Dominguez PA [address] [place] [address] [place] [address] PCP - BRADY Physician Supervisor Of Way 11/02/23 Levy Barry MD [address] [place] [address] [place] [address] PCP - General Family Medicine 12/20/23 documented as of this encounter
--- OUTSIDE RECORDS SUMMARY | 2025-07-31 12:04 | XMS_ITS | Encounter Summary ---
Author Organization [facility] work ([facility]) Address [address] [place] [address] Care Team Providers Care Plumber Maintenance Name Role Phone Meme Steel MD Primary Care Provider [phone] Pcp, Pcp Primary Care Provider Unavailabl Guadalupe Bardales MD Primary Care Provider [phone] Sena Domingeuz Unavailable [phone] Levy Barry MD Primary Care Provider Unavailab le Source Comments The information that you have received may contain highly confidential and/or federally protected health information. This information has been disclosed to you from records protected by [facility]. The law prohibits you from making [...] please contact the sender immediately.[facility] ([facility]) Encounter Details Date Type Department Care Team (Late st Contact Info) Description 04/15/2011 Historical Note SVMG [employer] System Devyn Vásuqez MD [address] [place] [address] [phone] Social History Tobacco Use Types Packs/Day Years [...] LEATHA CARRILLO - [facility] [address] [facility] [address] [place] [phone] Brenda Clay MD [address] [facility] [address] [place] [address] 04/15/2026 10:00 AM EDT Office Visit LEATHA Primary [facility] at [facility] + [facility] [address] [facility] [address] [place] [address] Sena Dominguez PA [address] [facility] [place] [address] documented as of this encounter Visit Diagnoses Not on filedocumented in this encounter Care Teams Plumber Maintenance Relationship Specialty Start Date End Date Meme Steel MD [address] [place] [address] 105 [place] [address] PCP - General Pediatrics 06/05/18 04/25/22 No Pcp, Pcp PCP - General 06/08/22 07/19/22 Guadalupe Mcbride MD PCP - General Family Medicine 07/20/22 11/01/23 Sena Dominguez PA [address] [place] [address] [place] [address] PCP - BRADY Physician Investor 11/02/23 Levy Barry MD [address] [place] [address] [place] [address] PCP - General Family Medicine 12/20/23 documented as of this encounter
--- OUTSIDE RECORDS SUMMARY | 2025-07-31 12:04 | XMS_ITS | Encounter Summary ---
Author Organization [facility] work ([facility]) Address [address] [place] [address] Care Team Providers Care Statistical Secretary Name Role Phone Meme Steel MD Primary Care Provider No Pcp, Pcp Primary Care Provider Unavailabl Guadalupe Bardales MD Primary Care Provider [phone] Sena Dominguez Unavailable [phone] Levy Barry MD Primary Care Provider Unavailab le Source Comments The information that you have received may contain highly confidential and/or federally protected health information. This information has been disclosed to you from records protected by [employer]. The law [...] error, please contact the sender immediately.[facility] ([facility]) Encounter Details Date Type Department Care Team (Late st Contact Info) Description 01/24/2006 Historical Note [facility] NewsBreak System Devyn Vásquez MD [address] [place] [address] [phone] Social History Tobacco Use Types Packs/Day Years [...] [facility] [address] [facility] [address] [place] [phone] Brenda Clay MD [address] [facility] [address] [place] [address] 04/15/2026 10:00 AM EDT Office Visit [facility] + [facility] [address] [facility] [address] [place] [address] Sena Dominguez PA [address] [facility] [place] [address] documented as of this encounter Visit Diagnoses Not on filedocumented in this encounter Care Teams Statistical Secretary Relationship Specialty Start Date End Date Meme Steel MD [address] [place] [address] [place] [address] PCP - General Pediatrics 06/05/18 04/25/22 No Pcp, Pcp PCP - General 06/08/22 07/19/22 Guadalupe Mcbride MD PCP - General Family Medicine 07/20/22 11/01/23 Sena Dominguez PA [address] [place] [address] [place] [address] PCP - BRADY Physician Nutritional Services Cook 11/02/23 Levy Barry MD [address] [place] [address] [place] [address] PCP - General Family Medicine 12/20/23 documented as of this encounter
--- OUTSIDE RECORDS SUMMARY | 2025-07-31 12:04 | XMS_ITS | Encounter Summary ---
Author Organization [facility] work ([facility]) Address [address] [place] [address] Care Team Providers Care Ampoule Filler Name Role Phone Meme Steel MD Primary Care Provider [phone] No Pcp, Pcp Primary Care Provider Unavailabl Guadalupe Bardales MD Primary Care Provider [phone] Sena Dominguez Unavailable Levy Barry MD Primary Care Provider Unavailab le Source Comments The information that you have received may contain highly confidential and/or federally protected health information. This information has been disclosed to you from records protected by [facility]. The law prohibits you [...] contact the sender immediately.[facility] ([facility]) Encounter Details Date Type Department Care Team (Late st Contact Info) Description 02/08/2006 Historical Note [facility] WorldAPP System Devyn Vásquez MD [address] [place] [address] [phone] Social History Tobacco Use Types Packs/Day Years [...] Visit LEATHA CARRILLO - [facility] [address] [facility] [address] [place] [phone] Brenda Clay MD [address] [facility] [address] [place] [address] 04/15/2026 10:00 AM EDT Office Visit [facility] at [facility] [address] [place] [facility] [address] [place] [address] Sena Dominguez PA [address] [place] [facility] [place] [address] documented as of this encounter Visit Diagnoses Not on filedocumented in this encounter Care Teams Ampoule Filler Relationship Specialty Start Date End Date Meme Steel MD [address] [place] [address] 105 [place] [address] PCP - General Pediatrics 06/05/18 04/25/22 No Pcp, Pcp PCP - General 06/08/22 07/19/22 Guadalupe Mcbride MD PCP - General Family Medicine 07/20/22 11/01/23 Sena Dominguez PA [address] [place] [address] [place] [address] PCP - BRADY Physician Home Demonstrator 11/02/23 Levy Barry MD [address] [place] [address] [place] [address] PCP - General Family Medicine 12/20/23 documented as of this encounter
--- OUTSIDE RECORDS SUMMARY | 2025-07-31 12:04 | XMS_ITS | Encounter Summary ---
Author Organization [facility] work ([facility]) Address [address] [place] [address] Care Team Providers Care Golf Ball Molder Name Role Phone Meme Steel MD Primary Care Provider No Pcp, Pcp Primary Care Provider Unavailabl Guadalupe Bardales MD Primary Care Provider [phone] Sena Dominguez Unavailable [phone] Levy Barry MD Primary Care Provider Unavailab le Source Comments The information that you have received may contain highly confidential and/or federally protected health information. This information has been disclosed to you from records protected by [facility]. The law [...] please contact the sender immediately.[facility] ([facility]) Encounter Details Date Type Department Care Team (Late st Contact Info) Description 01/23/2006 Historical Note [facility] Outbox System Devyn Vásquez MD [address] [place] [address] [phone] Social History Tobacco Use Types Packs/Day Years [...] - [facility] [address] [facility] [address] [place] [phone] Brenda Clay MD [address] [facility] [address] [place] [address] 04/15/2026 10:00 AM EDT Office Visit [facility] + [facility] [address] [facility] [address] [place] [address] Sena Dominguez PA [address] [facility] [place] [address] documented as of this encounter Visit Diagnoses Not on filedocumented in this encounter Care Teams Golf Ball Molder Relationship Specialty Start Date End Date Meme Steel MD [address] [place] [address] 105 [place] [address] PCP - General Pediatrics 06/05/18 04/25/22 No Pcp, Pcp PCP - General 06/08/22 07/19/22 Guadalupe Mcbride MD PCP - General Family Medicine 07/20/22 11/01/23 Sena Dominguez PA [address] [place] [address] [place] [address] PCP - BRADY Physician System Safety Manager 11/02/23 Levy Barry MD [address] [place] [address] [place] [address] PCP - General Family Medicine 12/20/23 documented as of this encounter
--- OUTSIDE RECORDS SUMMARY | 2025-07-31 12:04 | XMS_ITS | Encounter Summary ---
Author Organization [facility] work ([facility]) Address [address] [place] [address] Care Team Providers Care Senior Market Research Analyst Name Role Phone Meme Steel MD Primary Care Provider [phone] No Pcp, Pcp Primary Care Provider Unavailabl Guadalupe Bardales MD Primary Care Provider [phone] Sena Dominguez Unavailable [phone] Levy Barry MD Primary Care Provider Unavailab le Source Comments The information that you have received may contain highly confidential and/or federally protected health information. This information has been disclosed to you from records protected by [facility]. The law prohibits [...] the sender immediately.[facility] ([facility]) Encounter Details Date Type Department Care Team (Late st Contact Info) Description 09/10/2012 Historical Note [facility] [employer] System Devyn Vásquez MD [address] [place] [address] [phone] Social History Tobacco Use Types Packs/Day Years [...] LEATHA CARRILLO - [facility] [address] [facility] [address] [place] [phone] Brenda Clay MD [address] [facility] [address] [place] [address] 04/15/2026 10:00 AM EDT Office Visit [facility] + [facility] [address] [facility] [address] [place] [phone] Sena Domniguez PA [address] [facility] [place] [address] documented as of this encounter Visit Diagnoses Not on filedocumented in this encounter Care Teams Senior Market Research Analyst Relationship Specialty Start Date End Date Meme Steel MD [address] [place] [address] 105 [place] [address] PCP - General Pediatrics 06/05/18 04/25/22 No Pcp, Pcp PCP - General 06/08/22 07/19/22 Guadalupe Mcbride MD PCP - General Family Medicine 07/20/22 11/01/23 Sena Dominguez PA [address] [place] [address] [place] [address] PCP - BRADY Physician Molder Offbearer 11/02/23 Levy Barry MD [address] [place] [address] [place] [address] PCP - General Family Medicine 12/20/23 documented as of this encounter
--- OUTSIDE RECORDS SUMMARY | 2025-07-31 12:04 | XMS_ITS | Encounter Summary ---
Author Organization [facility] work ([facility]) Address [address] [place] [address] Care Team Providers Care Entry Operator Name Role Phone Meme Steel MD Primary Care Provider [phone] No Pcp, Pcp Primary Care Provider Unavailabl Guadalupe Bardales MD Primary Care Provider [phone] Sena Dominguez Unavailable [phone] Levy Barry MD Primary Care Provider Unavailab le Source Comments The information that you have received may contain highly confidential and/or federally protected health information. This information has been disclosed to you from records protected by [facility]. The law prohibits you from making [...] please contact the sender immediately.[facility] ([facility]) Encounter Details Date Type Department Care Team (Late st Contact Info) Description 02/08/2006 Historical Note [facility] System Devyn Vásquez MD [address] [place] [address] [phone] Social History Tobacco Use Types Packs/Day Years [...] LEATHA CARRILLO - [facility] [address] [facility] [address] [place] [phone] Brenda Clay MD [address] [facility] [address] [place] [address] 04/15/2026 10:00 AM EDT Office Visit [facility]HA [facility] at [facility] [address] [facility] [address] [place] [address] Sena Dominguez PA [address] [facility] [place] [address] documented as of this encounter Visit Diagnoses Not on filedocumented in this encounter Care Teams Entry Operator Relationship Specialty Start Date End Date Meme Steel MD [address] [place] [address] 105 [place] [address] PCP - General Pediatrics 06/05/18 04/25/22 No Pcp, Pcp PCP - General 06/08/22 07/19/22 Guadalupe Mcbride MD PCP - General Family Medicine 07/20/22 11/01/23 Sena Dominguez PA [address] [place] [address] [place] [address] PCP - BRADY Physician Field Crop I Farmworker 11/02/23 Levy Barry MD [address] [place] [address] [place] [address] PCP - General Family Medicine 12/20/23 documented as of this encounter
--- OUTSIDE RECORDS SUMMARY | 2025-07-31 12:04 | XMS_ITS | Encounter Summary ---
Author Organization [facility] work ([facility]) Address [address] [place] [address] Care Team Providers Care Pinion Staker Name Role Phone Meme Steel MD Primary Care Provider [phone] No Pcp, Pcp Primary Care Provider Unavailabl Guadalupe Bardales MD Primary Care Provider [phone] Sena Dominguez Unavailable [phone] Levy Barry MD Primary Care Provider Unavailab le Source Comments The information that you have received may contain highly confidential and/or federally protected health information. This information has been disclosed to you from records protected by [facility]. The law prohibits you from making [...] please contact the sender immediately.[facility] ([facility]) Encounter Details Date Type Department Care Team (Late st Contact Info) Description 05/22/2012 Historical Note [facility] Devyn Vásquez MD [address] [place] [address] [phone] Social History Tobacco Use Types Packs/Day Years [...] Visit LEATHA CARRILLO - [facility] [address] [facility] [address] [place] [phone] Brenda Clay MD [address] [facility] [address] [place] [address] 04/15/2026 10:00 AM EDT Office Visit [facility]HA [facility] at [facility] [address] [facility] [address] [place] [address] Sena Dominguez PA [address] [facility] [place] [address] documented as of this encounter Visit Diagnoses Not on filedocumented in this encounter Care Teams Pinion Staker Relationship Specialty Start Date End Date Meme Steel MD [address] [place] [address] 105 [place] [address] PCP - General Pediatrics 06/05/18 04/25/22 No Pcp, Pcp PCP - General 06/08/22 07/19/22 Guadalupe Mcbride MD PCP - General Family Medicine 07/20/22 11/01/23 Sena Dominguez PA [address] [place] [address] [place] [address] PCP - BRADY Physician Client Success Manager 11/02/23 Levy Barry MD [address] [place] [address] [place] [address] PCP - General Family Medicine 12/20/23 documented as of this encounter
--- OUTSIDE RECORDS SUMMARY | 2025-07-31 12:04 | XMS_ITS | Encounter Summary ---
Author Organization [facility] work ([facility]) Address [address] [place] [address] Care Team Providers Care Wood Room Hand Name Role Phone Meme Steel MD Primary Care Provider [phone] No Pcp, Pcp Primary Care Provider Unavailabl Guadalupe Bardales MD Primary Care Provider [phone] Sena Dominguez Unavailable [phone] Levy Barry MD Primary Care Provider Unavailab le Source Comments The information that you have received may contain highly confidential and/or federally protected health information. This information has been disclosed to you from records protected by [facility]. The law prohibits you from making [...] the sender immediately.[facility] ([facility]) Encounter Details Date Type Department Care Team (Late st Contact Info) Description 09/10/2012 Historical Note [facility] Mobile Tr[employer] System Devyn Vásquez MD [address] [place] [address] [phone] Social History Tobacco Use Types Packs/Day Years [...] - [facility] [address] [facility] [address] [place] [phone] Brenda Clay MD [address] [facility] [address] [place] [address] 04/15/2026 10:00 AM EDT Office Visit [facility]HA [facility] at [facility] + [facility] [address] [facility] [address] [place] [address] Sena Dominguez PA [address] [facility] [place] [address] documented as of this encounter Visit Diagnoses Not on filedocumented in this encounter Care Teams Wood Room Hand Relationship Specialty Start Date End Date Meme Stele MD [address] [place] [address] 105 [place] [address] PCP - General Pediatrics 06/05/18 04/25/22 No Pcp, Pcp PCP - General 06/08/22 07/19/22 Guadalupe Mcbride MD PCP - General Family Medicine 07/20/22 11/01/23 Sena Dominguez PA [address] [place] [address] [place] [address] PCP - BRADY Physician Elastic Assembler 11/02/23 Levy Barry MD [address] [place] [address] [place] [address] PCP - General Family Medicine 12/20/23 documented as of this encounter
--- OUTSIDE RECORDS SUMMARY | 2025-07-31 12:04 | XMS_ITS | Encounter Summary ---
Author Organization [facility] work ([facility]) Address [address] [place] [address] Care Team Providers Care Certified Nursing Assistant Name Role Phone Meme Steel MD Primary Care Provider [phone] No Pcp, Pcp Primary Care Provider Unavailabl Guadalupe Bardales MD Primary Care Provider [phone] Sena Dominguez Unavailable [phone] Levy Barry MD Primary Care Provider Unavailab le Source Comments The information that you have received may contain highly confidential and/or federally protected health information. This information has been disclosed to you from records protected by [facility]. The law prohibits you [...] please contact the sender immediately.[facility] ([facility]) Encounter Details Date Type Department Care Team (Late st Contact Info) Description 09/10/2012 Historical Note [facility] manetch System Devyn Vásquez MD [address] [place] [address] [phone] Social History Tobacco Use Types Packs/Day Years [...] - [facility] [address] [facility] [address] [place] [phone] Brenda Clay MD [address] [facility] [address] [place] [address] 04/15/2026 10:00 AM EDT Office Visit LEATHA Primary [facility] at [facility] + [facility] [address] [facility] [address] [place] [address] Sena Dominguez PA [address] [facility] [place] [address] documented as of this encounter Visit Diagnoses Not on filedocumented in this encounter Care Teams Certified Nursing Assistant Relationship Specialty Start Date End Date Meme Steel MD [address] [place] [address] 105 [place] [address] PCP - General Pediatrics 06/05/18 04/25/22 No Pcp, Pcp PCP - General 06/08/22 07/19/22 Guadalupe Mcbride MD PCP - General Family Medicine 07/20/22 11/01/23 Sena Dominguez PA [address] [place] [address] [place] [address] PCP - BRADY Physician Plate Corrector 11/02/23 Levy Barry MD [address] [place] [address] [place] [address] PCP - General Family Medicine 12/20/23 documented as of this encounter
--- OUTSIDE RECORDS SUMMARY | 2025-07-31 12:04 | XMS_ITS | Encounter Summary ---
Author Organization [facility] work ([facility]) Address [address] [place] [address] Care Team Providers Care Safety Advisor Name Role Phone Meme Steel MD Primary Care Provider [phone] No Pcp, Pcp Primary Care Provider Unavailabl Guadalupe Bardales MD Primary Care Provider [phone] Sena Dominguez Unavailable [phone] Levy Barry MD Primary Care Provider Unavailab le Source Comments The information that you have received may contain highly confidential and/or federally protected health information. This information has been disclosed to you from records protected by [facility]. The law prohibits you from making [...] sender immediately.[facility] ([facility]) Encounter Details Date Type Department Care Team (Late st Contact Info) Description 02/08/2006 Historical Note [facility] [employer] System Devyn Vásquez MD [address] [place] [address] [phone] Social History Tobacco Use Types Packs/Day Years [...] Visit LEATHA CARRILLO - [facility] [address] [facility] [address] [place] [phone] Brenda Clay MD [address] [facility] [address] [place] [address] 04/15/2026 10:00 AM EDT Office Visit LEATHA [facility] at [facility] [address] [facility] [address] [place] [address] Sena Dominguez PA [address] [facility] [place] [address] documented as of this encounter Visit Diagnoses Not on filedocumented in this encounter Care Teams Safety Advisor Relationship Specialty Start Date End Date Meme Steel MD [address] [place] [address] 105 [place] [address] PCP - General Pediatrics 06/05/18 04/25/22 No Pcp, Pcp PCP - General 06/08/22 07/19/22 Guadalupe Mcbride MD PCP - General Family Medicine 07/20/22 11/01/23 Sena Dominguez PA [address] [place] [address] [place] [address] PCP - BRADY Physician Turn Down Attendant 11/02/23 Levy Barry MD [address] [place] [address] [place] [address] PCP - General Family Medicine 12/20/23 documented as of this encounter
--- OUTSIDE RECORDS SUMMARY | 2025-07-31 12:04 | XMS_ITS | Encounter Summary ---
Author Organization [facility] work ([facility]) Address [address] [place] [address] Care Team Providers Care Meatcutter Name Role Phone Meme Steel MD Primary Care Provider No Pcp, Pcp Primary Care Provider Unavailabl Guadalupe Bardales MD Primary Care Provider [phone] Sena Dominguez Unavailable [phone] Levy Barry MD Primary Care Provider Unavailab le Source Comments The information that you have received may contain highly confidential and/or federally protected health information. This information has been disclosed to you from records protected by [facility]. The law prohibits you [...] please contact the sender immediately.[facility] ([facility]) Encounter Details Date Type Department Care Team (Late st Contact Info) Description 01/26/2006 Historical Note [facility] [employer] System Devyn Vásquez MD [address] [place] [address] [phone] Social History Tobacco Use Types Packs/Day Years [...] LEATHA CARRILLO - [facility] [address] [facility] [address] [place] [phone] Brenda Clya MD [address] [facility] [address] [place] [address] 04/15/2026 10:00 AM EDT Office Visit [facility]HA [facility] at [facility] + [facility] [address] [facility] [address] [place] [address] Sena Dominguez PA [address] [facility] [place] [address] documented as of this encounter Visit Diagnoses Not on filedocumented in this encounter Care Teams Meatcutter Relationship Specialty Start Date End Date Meme Steel MD [address] [place] [address] 105 [place] [address] PCP - General Pediatrics 06/05/18 04/25/22 No Pcp, Pcp PCP - General 06/08/22 07/19/22 Guadalupe Mcbride MD PCP - General Family Medicine 07/20/22 11/01/23 Sena Dominguez PA [address] [place] [address] [place] [address] PCP - BRADY Physician Care Attendant 11/02/23 Levy Barry MD [address] [place] [address] [place] [address] PCP - General Family Medicine 12/20/23 documented as of this encounter
--- OUTSIDE RECORDS SUMMARY | 2025-07-31 12:04 | XMS_ITS | Encounter Summary ---
Author Organization [facility] work ([facility]) Address [address] [facility] [address] [place] [address] Care Team Providers Care Records Supervisor Name Role Phone Meme Steel MD Primary Care Provider [phone] Pcp, Pcp Primary Care Provider Unavailabl Guadalupe Bardales MD Primary Care Provider [phone] Sena Dominguez Unavailable [phone] Levy Barry MD Primary Care Provider Unavailab le Source Comments The information that you have received may contain highly confidential and/or federally protected health information. This information has been disclosed to you from records protected by [facility]. The law prohibits you from making [...] immediately.[facility] ([facility]) Encounter Details Date Type Department Care Team (Late st Contact Info) Description 05/24/2012 Historical Note [facility] [employer] [facility] Devyn Vásquez MD [address] [place] [address] [phone] Social History Tobacco Use Types Packs/Day Years [...] CARRILLO - [facility] at [facility] [address] [facility] [address] [place] [phone] Brenda Clay MD [address] [facility] [address] [place] [address] 04/15/2026 10:00 AM EDT Office Visit [facility] + [facility] [address] [facility] [address] [place] [address] Sena Dominguez PA [address] [facility] [place] [address] documented as of this encounter Visit Diagnoses Not on filedocumented in this encounter Care Teams Records Supervisor Relationship Specialty Start Date End Date Meme Steel MD [address] [place] [address] [place] [address] PCP - General Pediatrics 06/05/18 04/25/22 No Pcp, Pcp PCP - General 06/08/22 07/19/22 Guadalupe Mcbride MD PCP - General Family Medicine 07/20/22 11/01/23 Sena Dominguez PA [address] [place] [address] [place] [address] PCP - BRADY Physician Desktop Support Engineer 11/02/23 Levy Barry MD [address] [place] [address] [place] [address] PCP - General Family Medicine 12/20/23 documented as of this encounter
--- OUTSIDE RECORDS SUMMARY | 2025-07-31 12:04 | XMS_ITS | Encounter Summary ---
Author Organization [facility] work ([facility]) Address [address] [facility] [place] [address] Care Team Providers Care Civil Litigation Attorney Name Role Phone Meme Steel MD Primary Care Provider [phone] Pcp, Pcp Primary Care Provider Unavailabl Guadalupe Bardales MD Primary Care Provider [phone] Sena Dominguez Unavailable [phone] Levy Barry MD Primary Care Provider Unavailab le Source Comments The information that you have received may contain highly confidential and/or federally protected health information. This information has been disclosed to you from records protected by [facility]. The law prohibits you [...] contact the sender immediately.[facility] ([facility]) Encounter Details Date Type Department Care Team (Late st Contact Info) Description 05/24/2012 Historical Note [facility] [employer] Devyn Vásquez MD [address] [place] [address] [phone] Social History Tobacco Use Types Packs/Day Years [...] CARRILLO - [facility] at [facility] [address] [facility] [address] [place] [phone] Brenda Clay MD [address] [facility] [address] [place] [address] 04/15/2026 10:00 AM EDT Office Visit [facility] [address] [facility] [address] [place] [address] Sena Dominguez PA [address] [facility] [place] [address] documented as of this encounter Visit Diagnoses Not on filedocumented in this encounter Care Teams Civil Litigation Attorney Relationship Specialty Start Date End Date Meme Steel MD [address] [place] [address] 105 [place] [address] PCP - General Pediatrics 06/05/18 04/25/22 No Pcp, Pcp PCP - General 06/08/22 07/19/22 Guadalupe Mcbride MD PCP - General Family Medicine 07/20/22 11/01/23 Sena Dominguez PA [address] [place] [address] [place] [address] PCP - BRADY Physician Business Project Analyst 11/02/23 Levy Barry MD [address] [place] [address] [place] [address] PCP - General Family Medicine 12/20/23 documented as of this encounter
--- OUTSIDE RECORDS SUMMARY | 2025-07-31 12:04 | XMS_ITS | Encounter Summary ---
Author Organization [facility] work ([facility]) Address [address] [place] [address] Care Team Providers Care Hospice Spiritual Care Coordinator Name Role Phone Meme Steel MD Primary Care Provider [phone] Pcp, Pcp Primary Care Provider Unavailabl Guadalupe Bardales MD Primary Care Provider [phone] Sena Dominguez Unavailable [phone] Levy Barry MD Primary Care Provider Unavailab le Source Comments The information that you have received may contain highly confidential and/or federally protected health information. This information has been disclosed to you from records protected by [facility]. The law prohibits you from [...] please contact the sender immediately.[facility] ([facility]) Encounter Details Date Type Department Care Team (Late st Contact Info) Description 2004 Historical Note [facility] [employer] System Devyn Vásquez MD [address] [place] [address] [phone] Social History Tobacco Use Types Packs/Day Years [...] CARRILLO - [facility] at [facility] [address] [facility] [address] [place] [phone] Brenda Clay MD [address] [facility] [address] [place] [address] 04/15/2026 10:00 AM EDT Office Visit LEATHA [facility] at [facility] + [facility] [address] [facility] [address] [place] [address] Sena Dominguez PA [address] [facility] [place] [address] documented as of this encounter Visit Diagnoses Not on filedocumented in this encounter Care Teams Hospice Spiritual Care Coordinator Relationship Specialty Start Date End Date Meme Steel MD [address] [place] [address] 105 [place] [address] PCP - General Pediatrics 06/05/18 04/25/22 No Pcp, Pcp PCP - General 06/08/22 07/19/22 Guadalupe Mcbride MD PCP - General Family Medicine 07/20/22 11/01/23 Sena Dominguez PA [address] [place] [address] [place] [address] PCP - BRADY Physician Pacs Administrator 11/02/23 Levy Barry MD [address] [place] [address] [place] [address] PCP - General Family Medicine 12/20/23 documented as of this encounter
--- OUTSIDE RECORDS SUMMARY | 2025-07-31 12:04 | XMS_ITS | Encounter Summary ---
Author Organization [facility] work ([facility]) Address [address] [facility] [place] [address] Care Team Providers Care Childhood Teacher Name Role Phone Meme Steel MD Primary Care Provider [phone] Pcp, Pcp Primary Care Provider Unavailabl Guadalupe Bardales MD Primary Care Provider [phone] Sena Dominguez Unavailable [phone] Levy Barry MD Primary Care Provider Unavailab le Source Comments The information that you have received may contain highly confidential and/or federally protected health information. This information has been disclosed to you from records protected by [facility]. The law prohibits you from making [...] the sender immediately.[facility] ([facility]) Encounter Details Date Type Department Care Team (Late st Contact Info) Description 05/22/2012 Historical Note [facility] [employer] System Devyn Vásquez MD [address] [place] [address] [phone] Social History Tobacco Use Types Packs/Day Years [...] - [facility] [address] [facility] [address] [place] [phone] Brenda Clay MD [address] [facility] [address] [place] [address] 04/15/2026 10:00 AM EDT Office Visit LEATHA [facility] at [facility] + [facility] [address] [facility] [address] [place] [address] Sena Dominguez PA [address] [facility] [place] [address] documented as of this encounter Visit Diagnoses Not on filedocumented in this encounter Care Teams Childhood Teacher Relationship Specialty Start Date End Date Meme Steel MD [address] [place] [address] 105 [place] [address] PCP - General Pediatrics 06/05/18 04/25/22 No Pcp, Pcp PCP - General 06/08/22 07/19/22 Guadalupe Mcbride MD PCP - General Family Medicine 07/20/22 11/01/23 Sena Dominguez PA [address] [place] [address] [place] [address] PCP - BRADY Physician Golf Club Weigher 11/02/23 Levy Barry MD [address] [place] [address] [place] [address] PCP - General Family Medicine 12/20/23 documented as of this encounter
--- OUTSIDE RECORDS SUMMARY | 2025-07-31 12:04 | XMS_ITS | Encounter Summary ---
Author Organization [facility] work ([facility]) Address [address] [place] [address] Care Team Providers Care Manager Art Name Role Phone Meme Steel MD Primary Care Provider No Pcp, Pcp Primary Care Provider Unavailabl Guadalupe Bardales MD Primary Care Provider [phone] Sena Dominguez Unavailable [phone] Levy Barry MD Primary Care Provider Unavailab le Source Comments The information that you have received may contain highly confidential and/or federally protected health information. This information has been disclosed to you from records protected by [facility]. The law prohibits you from making [...] contact the sender immediately.[facility] ([facility]) Encounter Details Date Type Department Care Team (Late st Contact Info) Description 01/26/2006 Historical Note [facility] [employer] System Devyn Vásquez MD [address] [place] [address] [phone] Social History Tobacco Use Types Packs/Day Years [...] CARRILLO - [facility] at [facility] [address] [facility] [address] [place] [phone] Brenda Clay MD [address] [facility] [address] [place] [address] 04/15/2026 10:00 AM EDT Office Visit LE[facility]HA [facility] at [facility] + [facility] [address] [facility] [address] [place] [address] Sena Dominguez PA [address] [facility] [place] [address] documented as of this encounter Visit Diagnoses Not on filedocumented in this encounter Care Teams Manager Art Relationship Specialty Start Date End Date Meme Steel MD [address] [place] [address] 105 [place] [address] PCP - General Pediatrics 06/05/18 04/25/22 No Pcp, Pcp PCP - General 06/08/22 07/19/22 Guadalupe Mcbride MD PCP - General Family Medicine 07/20/22 11/01/23 Sena Dominguez PA [address] [place] [address] [place] [address] PCP - BRADY Physician It Lead 11/02/23 Levy Barry MD [address] [place] [address] [place] [address] PCP - General Family Medicine 12/20/23 documented as of this encounter
--- OUTSIDE RECORDS SUMMARY | 2025-07-31 12:04 | XMS_ITS | Encounter Summary ---
Author Organization [facility] work ([facility]) Address [address] [place] [address] Care Team Providers Care Registered Public Health Nurse Name Role Phone Meme Steel MD Primary Care Provider [phone] Pcp, Pcp Primary Care Provider Unavailabl Guadalupe Bardales MD Primary Care Provider [phone] Sena Dominguez Unavailable [phone] Levy Barry MD Primary Care Provider Unavailab le Source Comments The information that you have received may contain highly confidential and/or federally protected health information. This information has been disclosed to you from records protected by [facility]. The law prohibits you [...] contact the sender immediately.[facility] ([facility]) Encounter Details Date Type Department Care Team (Late st Contact Info) Description 01/24/2006 Historical Note [facility] [employer] System Devyn Vásquez MD [address] [place] [address] [phone] Social History Tobacco Use Types Packs/Day Years [...] Visit LEATHA CARRILLO - [facility] [address] [facility] [address] [place] [phone] Brenda Clay MD [address] [facility] [address] [place] [address] 04/15/2026 10:00 AM EDT Office Visit LEATHA [facility] at [facility] + [facility] [address] [facility] [address] [place] [address] Sena Dominguez PA [address] [facility] [place] [address] documented as of this encounter Visit Diagnoses Not on filedocumented in this encounter Care Teams Registered Public Health Nurse Relationship Specialty Start Date End Date Meme Steel MD [address] [place] [address] 105 [place] [address] PCP - General Pediatrics 06/05/18 04/25/22 No Pcp, Pcp PCP - General 06/08/22 07/19/22 Guadalupe Mcbride MD PCP - General Family Medicine 07/20/22 11/01/23 Sena Dominguez PA [address] [place] [address] [place] [address] PCP - BRADY Physician Community Services Coordinator 11/02/23 Levy Barry MD [address] [place] [address] [place] [address] PCP - General Family Medicine 12/20/23 documented as of this encounter
--- OUTSIDE RECORDS SUMMARY | 2025-07-31 12:04 | XMS_ITS | Encounter Summary ---
Author Organization [facility] work ([facility]) Address [address] [facility] [address] [address] [place] [address] Care Team Providers Care Structural Iron Erector Name Role Phone Meme Steel MD Primary Care Provider [phone] Pcp, Pcp Primary Care Provider Unavailabl Guadalupe Bardales MD Primary Care Provider [phone] Sena Dominguez Unavailable [phone] Levy Barry MD Primary Care Provider Unavailab le Source Comments The information that you have received may contain highly confidential and/or federally protected health information. This information has been disclosed to you from records protected by [facility]. The law prohibits you [...] please contact the sender immediately.[facility] ([facility]) Encounter Details Date Type Department Care Team (Late st Contact Info) Description 11/06/2005 Historical Note [facility] [employer] System Devyn Vásquez MD [address] [place] [address] [phone] Social History Tobacco Use Types Packs/Day Years [...] CARRILLO - [facility] [address] [facility] [address] [place] [phone] Brenda Clay MD [address] [facility] [address] [place] [address] 04/15/2026 10:00 AM EDT Office Visit LEATHA [facility] at [facility] + [facility] [address] [facility] [address] [place] [address] Sena Dominguez PA [address] [facility] [place] [address] documented as of this encounter Visit Diagnoses Not on filedocumented in this encounter Care Teams Structural Iron Erector Relationship Specialty Start Date End Date Meme Steel MD [address] [place] [address] 105 [place] [address] PCP - General Pediatrics 06/05/18 04/25/22 No Pcp, Pcp PCP - General 06/08/22 07/19/22 Guadalupe Mcbride MD PCP - General Family Medicine 07/20/22 11/01/23 Sena Dominguez PA [address] [place] [address] [place] [address] PCP - BRADY Physician Federal Law Clerk 11/02/23 Levy Barry MD [address] [place] [address] [place] [address] PCP - General Family Medicine 12/20/23 documented as of this encounter
--- OUTSIDE RECORDS SUMMARY | 2025-07-31 12:04 | XMS_ITS | Encounter Summary ---
Author Organization [facility] work ([facility]) Address [address] [place] [address] Care Team Providers Care Personal Banking Assistant Name Role Phone Meme Steel MD Primary Care Provider [phone] No Pcp, Pcp Primary Care Provider Unavailabl Guadalupe Bardales MD Primary Care Provider [phone] Sena Dominguez Unavailable [phone] Levy Barry MD Primary Care Provider Unavailab le Source Comments The information that you have received may contain highly confidential and/or federally protected health information. This information has been disclosed to you from records protected by [facility]. The law prohibits you [...] contact the sender immediately.[facility] ([facility]) Encounter Details Date Type Department Care Team (Late st Contact Info) Description 02/08/2006 Historical Note [facility] [employer] System Devyn Vásquez MD [address] [place] [address] [phone] Social History Tobacco Use Types Packs/Day Years [...] CARRILLO - [facility] [address] [facility] [address] [place] [phone] Brenda Clay MD [address] [facility] [address] [place] [address] 04/15/2026 10:00 AM EDT Office Visit LEATHA Primary Care at [facility] + [facility] [address] [facility] [address] [place] [address] Sena Dominguez PA [address] [facility] [place] [address] documented as of this encounter Visit Diagnoses Not on filedocumented in this encounter Care Teams Personal Banking Assistant Relationship Specialty Start Date End Date Meme Steel MD [address] [place] [address] 105 [place] [address] PCP - General Pediatrics 06/05/18 04/25/22 No Pcp, Pcp PCP - General 06/08/22 07/19/22 Guadalupe Mcbride MD PCP - General Family Medicine 07/20/22 11/01/23 Sena Dominguez PA [address] [place] [address] [place] [address] PCP - BRADY Physician Radiation Officer 11/02/23 Levy Barry MD [address] [place] [address] [place] [address] PCP - General Family Medicine 12/20/23 documented as of this encounter
--- OUTSIDE RECORDS SUMMARY | 2025-07-31 12:04 | XMS_ITS | Encounter Summary ---
Author Organization [facility] work ([facility]) Address [address] [facility] [address] [place] [address] Care Team Providers Care Nutrition Helper Name Role Phone Meme Steel MD Primary Care Provider [phone] No Pcp, Pcp Primary Care Provider Unavailabl Guadalupe Bardales MD Primary Care Provider [phone] Sena Dominguez Unavailable [phone] Levy Barry MD Primary Care Provider Unavailab le Source Comments The information that you have received may contain highly confidential and/or federally protected health information. This information has been disclosed to you from records protected by [facility]. The law prohibits you [...] please contact the sender immediately.[facility] ([facility]) Encounter Details Date Type Department Care Team (Late st Contact Info) Description 05/24/2012 Historical Note [facility] [employer] System Devyn Vásquez MD [address] [place] [address] [phone] Social History Tobacco Use Types Packs/Day Years [...] Visit LEATHA CARRILLO - [facility] [address] [facility] [address] [place] [phone] Brenda Clay MD [address] [facility] [address] [place] [phone] 04/15/2026 10:00 AM EDT Office Visit LEATHA [facility] at [facility] [address] [facility] [address] [place] [address] Sena Dominguez PA [address] [facility] [place] [address] documented as of this encounter Visit Diagnoses Not on filedocumented in this encounter Care Teams Nutrition Helper Relationship Specialty Start Date End Date Meme Steel MD [address] [place] [address] 105 [place] [address] PCP - General Pediatrics 06/05/18 04/25/22 No Pcp, Pcp PCP - General 06/08/22 07/19/22 Guadalupe Mcbride MD PCP - General Family Medicine 07/20/22 11/01/23 Sena Dominguez PA [address] [place] [address] [place] [address] PCP - BRADY Physician Plant Engineer 11/02/23 Levy Barry MD [address] [place] [address] [place] [address] PCP - General Family Medicine 12/20/23 documented as of this encounter
--- OUTSIDE RECORDS SUMMARY | 2025-07-31 12:04 | XMS_ITS | Encounter Summary ---
Author Organization [facility] work ([facility]) Address [address] [place] [address] Care Team Providers Care Chute Man Name Role Phone Meme Steel MD Primary Care Provider [phone] No Pcp, Pcp Primary Care Provider Unavailabl Guadalupe Bardales MD Primary Care Provider [phone] Sena Dominguez Unavailable [phone] Levy Barry MD Primary Care Provider Unavailab le Source Comments The information that you have received may contain highly confidential and/or federally protected health information. This information has been disclosed to you from records protected by [facility]. The law prohibits you [...] please contact the sender immediately.[facility] ([facility]) Encounter Details Date Type Department Care Team (Late st Contact Info) Description 05/21/2012 Historical Note [facility] [employer] System Devyn Vásquez MD [address] [place] [address] [phone] Social History Tobacco Use Types Packs/Day Years [...] Visit LEATHA CARRILLO - [facility] [address] [facility] [address] [place] [phone] Brenda Clay MD [address] [facility] [address] [place] [phone] 04/15/2026 10:00 AM EDT Office Visit LEATHA [facility] at [facility] [address] [facility] [address] [place] [address] Sena Dominguez PA [address] [facility] [place] [address] documented as of this encounter Visit Diagnoses Not on filedocumented in this encounter Care Teams Chute Man Relationship Specialty Start Date End Date Meme Steel MD [address] [place] [address] 105 [place] [address] PCP - General Pediatrics 06/05/18 04/25/22 No Pcp, Pcp PCP - General 06/08/22 07/19/22 Guadalupe Mcbride MD PCP - General Family Medicine 07/20/22 11/01/23 Sena Dominguez PA [address] [place] [address] [place] [address] PCP - BRADY Physician Farm Field Manager 11/02/23 Levy Barry MD [address] [place] [address] [place] [address] PCP - General Family Medicine 12/20/23 documented as of this encounter
--- OUTSIDE RECORDS SUMMARY | 2025-07-31 12:04 | XMS_ITS | Encounter Summary ---
Author Organization [facility] work ([facility]) Address [address] [place] [address] Care Team Providers Care Stenciling Machine Tender Name Role Phone Meme Steel MD Primary Care Provider [phone] Pcp, Pcp Primary Care Provider Unavailabl Guadalupe Bardales MD Primary Care Provider [phone] Sena Dominguez Unavailable [phone] Levy Barry MD Primary Care Provider Unavailab le Source Comments The information that you have received may contain highly confidential and/or federally protected health information. This information has been disclosed to you from records protected by [facility]. The law prohibits you from making [...] please contact the sender immediately.[facility] ([facility]) Encounter Details Date Type Department Care Team (Late st Contact Info) Description 05/24/2012 Historical Note [facility] Orecon System Devyn Vásquez MD [address] [place] [address] [phone] Social History Tobacco Use Types Packs/Day Years [...] LEATHA CARRILLO - [facility] [address] [facility] [address] [place] [phone] Brenda Clay MD [address] [facility] [address] [place] [address] 04/15/2026 10:00 AM EDT Office Visit [facility] at [facility] [address] [facility] [address] [place] [address] Sena Dominguez PA [address] [facility] [place] [address] documented as of this encounter Visit Diagnoses Not on filedocumented in this encounter Care Teams Stenciling Machine Tender Relationship Specialty Start Date End Date Meme Steel MD [address] [place] [address] [place] [address] PCP - General Pediatrics 06/05/18 04/25/22 No Pcp, Pcp PCP - General 06/08/22 07/19/22 Guadalupe Mcbride MD PCP - General Family Medicine 07/20/22 11/01/23 Sena Dominguez PA [address] [place] [address] [place] [address] PCP - BRADY Physician Maintenance Superintendent 11/02/23 Levy Barry MD [address] [place] [address] [place] [address] PCP - General Family Medicine 12/20/23 documented as of this encounter
--- OUTSIDE RECORDS SUMMARY | 2025-07-31 12:04 | XMS_ITS | Encounter Summary ---
Author Organization [facility] work ([facility]) Address [address] [place] [address] Care Team Providers Care Meter Shop Supervisor Name Role Phone Meme Steel MD Primary Care Provider [phone] Pcp, Pcp Primary Care Provider Unavailabl Guadalupe Bardales MD Primary Care Provider [phone] Sena Dominguez Unavailable [phone] Levy Barry MD Primary Care Provider Unavailab le Source Comments The information that you have received may contain highly confidential and/or federally protected health information. This information has been disclosed to you from records protected by [facility]. The law prohibits [...] contact the sender immediately.[facility] ([facility]) Encounter Details Date Type Department Care Team (Late st Contact Info) Description 02/08/2006 Historical Note [facility] Rippld System Devyn Vásquez MD [address] [place] [address] [phone] Social History Tobacco Use Types Packs/Day Years [...] AM EST Office Visit LEATHA CARRILLO - [facility] [address] [facility] [address] [place] [phone] Brenda Clay MD [address] [facility] [address] [place] [address] 04/15/2026 10:00 AM EDT Office Visit [facility] [address] [facility] [address] [place] [address] Sena Dominguez PA [address] [facility] [place] [address] documented as of this encounter Visit Diagnoses Not on filedocumented in this encounter Care Teams Meter Shop Supervisor Relationship Specialty Start Date End Date Meme Steel MD [address] [place] [address] 105 [place] [address] PCP - General Pediatrics 06/05/18 04/25/22 No Pcp, Pcp PCP - General 06/08/22 07/19/22 Guadalupe Mcbride MD PCP - General Family Medicine 07/20/22 11/01/23 Sena Dominguez PA [address] [place] [address] [place] [address] PCP - BRADY Physician French Pastry Cook 11/02/23 Levy Barry MD [address] [place] [address] [place] [address] PCP - General Family Medicine 12/20/23 documented as of this encounter
--- OUTSIDE RECORDS SUMMARY | 2025-07-31 12:04 | XMS_ITS | Encounter Summary ---
Author Organization [facility] work ([facility]) Address [address] [place] [address] Care Team Providers Care Principal Automation Engineer Name Role Phone Meme Steel MD Primary Care Provider [phone] Pcp, Pcp Primary Care Provider Unavailabl Guadalupe Bardales MD Primary Care Provider [phone] Sena Dominguez Unavailable [phone] Levy Barry MD Primary Care Provider Unavailab le Source Comments The information that you have received may contain highly confidential and/or federally protected health information. This information has been disclosed to you from records protected by [facility]. The law prohibits you from [...] please contact the sender immediately.[facility] ([facility]) Encounter Details Date Type Department Care Team (Late st Contact Info) Description 09/10/2012 Historical Note [facility] BlogCN System Devyn Vásquez MD [address] [place] [address] [phone] Social History Tobacco Use Types Packs/Day Years [...] LEATHA CARRILLO - [facility] [address] [facility] [address] [place] [phone] Brenda Clay MD [address] [facility] [address] [place] [address] 04/15/2026 10:00 AM EDT Office Visit LEATHA [facility] at [facility] [address] [facility] [address] [place] [address] Sena Dominguez PA [address] [facility] [place] [address] documented as of this encounter Visit Diagnoses Not on filedocumented in this encounter Care Teams Principal Automation Engineer Relationship Specialty Start Date End Date Meme Steel MD [address] [place] [address] 105 [place] [address] PCP - General Pediatrics 06/05/18 04/25/22 No Pcp, Pcp PCP - General 06/08/22 07/19/22 Guadalupe Mcbride MD PCP - General Family Medicine 07/20/22 11/01/23 Sena Dominguez PA [address] [place] [address] [place] [address] PCP - BRADY Physician Superintendent Automotive 11/02/23 Levy Barry MD [address] [place] [address] [place] [address] PCP - General Family Medicine 12/20/23 documented as of this encounter
--- OUTSIDE RECORDS SUMMARY | 2025-07-31 12:04 | XMS_ITS | Encounter Summary ---
Author Organization [facility] work ([facility]) Address [address] [place] [address] Care Team Providers Care Sales Professional Bilingual Name Role Phone Meme Steel MD Primary Care Provider [phone] No Pcp, Pcp Primary Care Provider Unavailabl Guadalupe Bardales MD Primary Care Provider [phone] Sena Dominguez Unavailable [phone] Levy Barry MD Primary Care Provider Unavailab le Source Comments The information that you have received may contain highly confidential and/or federally protected health information. This information has been disclosed to you from records protected by [facility]. The law prohibits you [...] contact the sender immediately.[facility] ([facility]) Encounter Details Date Type Department Care Team (Late st Contact Info) Description 01/13/2006 Historical Note [facility] [employer] System Devyn Vásquez MD [address] [place] [address] [phone] Social History Tobacco Use Types Packs/Day Years [...] LEATHA CARRILLO - [facility] [address] [facility] [address] [place] [phone] Brenda Clay MD [address] [facility] [address] [place] [address] 04/15/2026 10:00 AM EDT Office Visit [facility] [address] [facility] [address] [place] [address] Sena Dominguez PA [address] [facility] [place] [address] documented as of this encounter Visit Diagnoses Not on filedocumented in this encounter Care Teams Sales Professional Bilingual Relationship Specialty Start Date End Date Meme Steel MD [address] [place] [address] 105 [place] [address] PCP - General Pediatrics 06/05/18 04/25/22 No Pcp, Pcp PCP - General 06/08/22 07/19/22 Guadalupe Mcbride MD PCP - General Family Medicine 07/20/22 11/01/23 Sena Dominguez PA [address] [place] [address] [place] [address] PCP - BRADY Physician Cell Builder 11/02/23 Levy Barry MD [address] [place] [address] [place] [address] PCP - General Family Medicine 12/20/23 documented as of this encounter
--- OUTSIDE RECORDS SUMMARY | 2025-07-31 12:04 | XMS_ITS | Encounter Summary ---
Author Organization [facility] work ([facility]) Address [address] [facility] [address] [facility] [address] [place] [address] Care Team Providers Care Shop Fitter Name Role Phone Meme Steel MD Primary Care Provider [phone] Pcp, Pcp Primary Care Provider Unavailabl Guadalupe Bardales MD Primary Care Provider [phone] Sena Dominguez Unavailable [phone] Levy Barry MD Primary Care Provider Unavailab le Source Comments The information that you have received may contain highly confidential and/or federally protected health information. This information has been disclosed to you from records protected by [facility]. The law prohibits you [...] please contact the sender immediately.[facility] ([facility]) Encounter Details Date Type Department Care Team (Late st Contact Info) Description 05/24/2012 Historical Note [facility] Meetmeals System Devyn Vásquez MD [address] [place] [address] [phone] Social History Tobacco Use Types Packs/Day Years [...] Visit LEATHA CARRILLO - [facility] [address] [facility] [address] [place] [phone] Brenda Clay MD [address] [facility] [address] [place] [address] 04/15/2026 10:00 AM EDT Office Visit LEATHA [facility] at [facility] [address] [facility] [address] [place] [address] Sena Dominguez PA [address] [facility] [place] [address] documented as of this encounter Visit Diagnoses Not on filedocumented in this encounter Care Teams Shop Fitter Relationship Specialty Start Date End Date Meme Steel MD [address] [place] [address] 105 [place] [address] PCP - General Pediatrics 06/05/18 04/25/22 No Pcp, Pcp PCP - General 06/08/22 07/19/22 Guadalupe Mcbride MD PCP - General Family Medicine 07/20/22 11/01/23 Sena Dominguez PA [address] [place] [address] [place] [address] PCP - BRADY Physician Panel Edge Sealer 11/02/23 Levy Barry MD [address] [place] [address] [place] [address] PCP - General Family Medicine 12/20/23 documented as of this encounter
--- OUTSIDE RECORDS SUMMARY | 2025-07-31 12:04 | XMS_ITS | Encounter Summary ---
Author Organization [facility] work ([facility]) Address [address] [facility] [address] [address] [place] [address] Care Team Providers Care Bet Taker Name Role Phone Meme Steel MD Primary Care Provider [phone] Pcp, Pcp Primary Care Provider Unavailabl Guadalupe Bardales MD Primary Care Provider [phone] Sena Dominguez Unavailable [phone] Levy Barry MD Primary Care Provider Unavailab le Source Comments The information that you have received may contain highly confidential and/or federally protected health information. This information has been disclosed to you from records protected by [facility]. The law prohibits you [...] immediately.[facility] ([facility]) Encounter Details Date Type Department Care Team (Late st Contact Info) Description 06/14/2007 Historical Note [facility] Busportal System Devyn Vásquez MD [address] [place] [address] [phone] Social History Tobacco Use Types Packs/Day Years [...] CARRILLO - [facility] [address] [facility] [address] [place] [phone] Brenda Clay MD [address] [facility] [address] [place] [phone] 04/15/2026 10:00 AM EDT Office Visit [facility] [address] [facility] [address] [place] [address] Sena Dominguez PA [address] [facility] [place] [address] documented as of this encounter Visit Diagnoses Not on filedocumented in this encounter Care Teams Bet Taker Relationship Specialty Start Date End Date Meme Steel MD [address] [place] [address] 105 [place] [address] PCP - General Pediatrics 06/05/18 04/25/22 No Pcp, Pcp PCP - General 06/08/22 07/19/22 Guadalupe Mcbride MD PCP - General Family Medicine 07/20/22 11/01/23 Sena Dominguez PA [address] [place] [address] [place] [address] PCP - BRADY Physician Risk Modeler 11/02/23 Levy Barry MD [address] [place] [address] [place] [address] PCP - General Family Medicine 12/20/23 documented as of this encounter
--- OUTSIDE RECORDS SUMMARY | 2025-07-31 12:04 | XMS_ITS | Encounter Summary ---
Author Organization [facility] work ([facility]) Address [address] [facility] [address] [place] [address] Care Team Providers Care Kitchen Lead Name Role Phone Meme Steel MD Primary Care Provider [phone] Pcp, Pcp Primary Care Provider Unavailabl Guadalupe Bardales MD Primary Care Provider [phone] Sena Dominguez Unavailable [phone] Levy Barry MD Primary Care Provider Unavailab le Source Comments The information that you have received may contain highly confidential and/or federally protected health information. This information has been disclosed to you from records protected by [facility]. The [...] please contact the sender immediately.[facility] ([facility]) Encounter Details Date Type Department Care Team (Late st Contact Info) Description 05/08/2012 Historical Note [facility] Rösler miniDaT System Devyn Vásquez MD [address] [place] [address] [phone] Social History Tobacco Use Types Packs/Day Years [...] LEATHA CARRILLO - [facility] [address] [facility] [address] [place] [phone] Brenda Clay MD [address] [facility] [address] [place] [address] 04/15/2026 10:00 AM EDT Office Visit LEATHA [facility] at [facility] [address] [facility] [address] [place] [address] Sena Dominguez PA [address] [facility] [place] [address] documented as of this encounter Visit Diagnoses Not on filedocumented in this encounter Care Teams Kitchen Lead Relationship Specialty Start Date End Date Meme Steel MD [address] [place] [address] 105 [place] [address] PCP - General Pediatrics 06/05/18 04/25/22 No Pcp, Pcp PCP - General 06/08/22 07/19/22 Guadalupe Mcbride MD PCP - General Family Medicine 07/20/22 11/01/23 Sena Dominguez PA [address] [place] [address] [place] [address] PCP - BRADY Physician Drafting Layout Man 11/02/23 Levy Barry MD [address] [place] [address] [place] [address] PCP - General Family Medicine 12/20/23 documented as of this encounter
--- OUTSIDE RECORDS SUMMARY | 2025-07-31 12:04 | XMS_ITS | Encounter Summary ---
Author Organization [facility] work ([facility]) Address [address] [place] [address] Care Team Providers Care Supervisor Cytogenetic Laboratory Name Role Phone Meme Steel MD Primary Care Provider [phone] Pcp, Pcp Primary Care Provider Unavailabl Guadalupe Bardales MD Primary Care Provider [phone] Sena Dominguez Unavailable [phone] Levy Barry MD Primary Care Provider Unavailab le Source Comments The information that you have received may contain highly confidential and/or federally protected health information. This information has been disclosed to you from records protected by [facility]. The law prohibits you from making [...] please contact the sender immediately.[facility] ([facility]) Encounter Details Date Type Department Care Team (Late st Contact Info) Description 02/08/2006 Historical Note [facility] SpearFysh System Devyn Vásquez MD [address] [place] [address] [phone] Social History Tobacco Use Types Packs/Day Years [...] LEATHA CARRILLO - [facility] [address] [facility] [address] [place] [phone] Brenda Clay MD [address] [facility] [address] [place] [address] 04/15/2026 10:00 AM EDT Office Visit LEATHA Primary [facility] at [facility] [address] [facility] [address] [place] [address] Sena Dominguez PA [address] [facility] [place] [address] documented as of this encounter Visit Diagnoses Not on filedocumented in this encounter Care Teams Supervisor Cytogenetic Laboratory Relationship Specialty Start Date End Date Meme Steel MD [address] [place] [address] 105 [place] [address] PCP - General Pediatrics 06/05/18 04/25/22 No Pcp, Pcp PCP - General 06/08/22 07/19/22 Guadalupe Mcbride MD PCP - General Family Medicine 07/20/22 11/01/23 Sena Dominguez PA [address] [place] [address] [place] [address] PCP - BRADY Physician Aids Nurse 11/02/23 Levy Barry MD [address] [place] [address] [place] [address] PCP - General Family Medicine 12/20/23 documented as of this encounter
--- OUTSIDE RECORDS SUMMARY | 2025-07-31 12:04 | XMS_ITS | Encounter Summary ---
Author Organization [facility] work ([facility]) Address [address] [place] [address] Care Team Providers Care Sewing Machine Operator Plastic Zipper Name Role Phone Meme Steel MD Primary Care Provider [phone] No Pcp, Pcp Primary Care Provider Unavailabl Guadalupe Bardales MD Primary Care Provider [phone] Sena Dominguez Unavailable [phone] Levy Barry MD Primary Care Provider Unavailab le Source Comments The information that you have received may contain highly confidential and/or federally protected health information. This information has been disclosed to you from records protected by [facility]. The law prohibits you [...] contact the sender immediately.[facility] ([facility]) Encounter Details Date Type Department Care Team (Late st Contact Info) Description 05/24/2012 Historical Note [facility] Gamador System Devyn Vásquez MD [address] [place] [address] [phone] Social History Tobacco Use Types Packs/Day Years [...] LEATHA CARRILLO - [facility] [address] [facility] [address] [place] [phone] Brenda Clay MD [address] [facility] [address] [place] [phone] 04/15/2026 10:00 AM EDT Office Visit LEATHA [facility] at [facility] [address] [facility] [address] [place] [address] Sena Dominguez PA [address] [facility] [place] [address] documented as of this encounter Visit Diagnoses Not on filedocumented in this encounter Care Teams Sewing Machine Operator Plastic Zipper Relationship Specialty Start Date End Date Meme Steel MD [address] [place] [address] 105 [place] [address] PCP - General Pediatrics 06/05/18 04/25/22 No Pcp, Pcp PCP - General 06/08/22 07/19/22 Guadalupe Mcbride MD PCP - General Family Medicine 07/20/22 11/01/23 Sena Dominguez PA [address] [place] [address] [place] [address] PCP - BRADY Physician National Business Director 11/02/23 Levy Barry MD [address] [place] [address] [place] [address] PCP - General Family Medicine 12/20/23 documented as of this encounter
--- OUTSIDE RECORDS SUMMARY | 2025-07-31 12:04 | XMS_ITS | Encounter Summary ---
Author Organization [facility] work ([facility]) Address [address] [place] [address] Care Team Providers Care Tent Finisher Name Role Phone Meme Steel MD Primary Care Provider [phone] No Pcp, Pcp Primary Care Provider Unavailabl Guadalupe Bardales MD Primary Care Provider [phone] Sena Dominguez Unavailable [phone] Levy Barry MD Primary Care Provider Unavailab le Source Comments The information that you have received may contain highly confidential and/or federally protected health information. This information has been disclosed to you from records protected by [employer] [facility]. The law prohibits you [...] please contact the sender immediately.[facility] ([facility]) Encounter Details Date Type Department Care Team (Late st Contact Info) Description 01/13/2006 Historical Note [facility] DotProduct System Devyn Vásquez MD [address] [place] [address] [phone] Social History Tobacco Use Types Packs/Day Years [...] CARRILLO - [facility] [address] [facility] [address] [place] [phone] Brenda Clay MD [address] [facility] [address] [place] [address] 04/15/2026 10:00 AM EDT Office Visit LE[facility]HA [facility] at [facility] [address] [facility] [address] [place] [address] Sena Dominguez PA [address] [facility] [place] [address] documented as of this encounter Visit Diagnoses Not on filedocumented in this encounter Care Teams Tent Finisher Relationship Specialty Start Date End Date Meme Steel MD [address] [place] [address] 105 [place] [address] PCP - General Pediatrics 06/05/18 04/25/22 No Pcp, Pcp PCP - General 06/08/22 07/19/22 Guadalupe Mcbride MD PCP - General Family Medicine 07/20/22 11/01/23 Sena Dominguez PA [address] [place] [address] [place] [address] PCP - BRADY Physician Extrusion Machine Operator 11/02/23 Levy Barry MD [address] [place] [address] [place] [address] PCP - General Family Medicine 12/20/23 documented as of this encounter
--- OUTSIDE RECORDS SUMMARY | 2025-07-31 12:04 | XMS_ITS | Encounter Summary ---
Author Organization [facility] work ([facility]) Address [address] [place] [address] Care Team Providers Care Armored Car Guard Name Role Phone Meme Steel MD Primary Care Provider [phone] No Pcp, Pcp Primary Care Provider Unavailabl Guadalupe Bardales MD Primary Care Provider [phone] Sena Dominguez Unavailable [phone] Levy Barry MD Primary Care Provider Unavailab le Source Comments The information that you have received may contain highly confidential and/or federally protected health information. This information has been disclosed to you from records protected by [facility]. The law [...] please contact the sender immediately.[facility] ([facility]) Encounter Details Date Type Department Care Team (Late st Contact Info) Description 11/06/2005 Historical Note [facility] FIGMD System Devyn Vásquez MD [address] [place] [address] [phone] Social History Tobacco Use Types Packs/Day Years [...] Visit LEATHA CARRILLO - [facility] [address] [facility] [address] [place] [phone] Brenda Clay MD [address] [facility] [address] [place] [address] 04/15/2026 10:00 AM EDT Office Visit [facility] + [facility] [address] [facility] [address] [place] [address] Sena Dominguez PA [address] [facility] [place] [address] documented as of this encounter Visit Diagnoses Not on filedocumented in this encounter Care Teams Armored Car Guard Relationship Specialty Start Date End Date Meme Steel MD [address] [place] [address] [place] [address] PCP - General Pediatrics 06/05/18 04/25/22 No Pcp, Pcp PCP - General 06/08/22 07/19/22 Guadalupe Mcbride MD PCP - General Family Medicine 07/20/22 11/01/23 Sena Dominguez PA [address] [place] [address] [place] [address] PCP - BRADY Physician Commercial Collections Specialist 11/02/23 Levy Barry MD [address] [place] [address] [place] [address] PCP - General Family Medicine 12/20/23 documented as of this encounter
--- OUTSIDE RECORDS SUMMARY | 2025-07-31 12:04 | XMS_ITS | Encounter Summary ---
Author Organization [facility] work ([facility]) Address [address] [place] [address] Care Team Providers Care Marketing Technology Coordinator Name Role Phone Meme Steel MD Primary Care Provider [phone] No Pcp, Pcp Primary Care Provider Unavailabl Guadalupe Bardales MD Primary Care Provider [phone] Sena Dominguez Unavailable [phone] Levy Barry MD Primary Care Provider Unavailab le Source Comments The information that you have received may contain highly confidential and/or federally protected health information. This information has been disclosed to you from records protected by [facility]. The law prohibits you from making [...] contact the sender immediately.[facility] ([facility]) Encounter Details Date Type Department Care Team (Late st Contact Info) Description 02/08/2006 Historical Note [facility] Idea Device System Devyn Vásquez MD [address] [place] [address] [phone] Social History Tobacco Use Types Packs/Day Years [...] LEATHA CARRILLO - [facility] at [facility] [address] [facility] [address] [place] [phone] Brenda Clya MD [address] [facility] [address] [place] [address] 04/15/2026 10:00 AM EDT Office Visit [facility] + [facility] [address] [facility] [address] [place] [address] Sena Dominguez PA [address] [facility] [place] [address] documented as of this encounter Visit Diagnoses Not on filedocumented in this encounter Care Teams Marketing Technology Coordinator Relationship Specialty Start Date End Date Meme Steel MD [address] [place] [address] 105 [place] [address] PCP - General Pediatrics 06/05/18 04/25/22 No Pcp, Pcp PCP - General 06/08/22 07/19/22 Guadalupe Mcbride MD PCP - General Family Medicine 07/20/22 11/01/23 Sena Dominguez PA [address] [place] [address] [place] [address] PCP - BRADY Physician Geothermal Operating Engineer 11/02/23 Levy Barry MD [address] [place] [address] [place] [address] PCP - General Family Medicine 12/20/23 documented as of this encounter
--- OUTSIDE RECORDS SUMMARY | 2025-07-31 12:04 | XMS_ITS | Encounter Summary ---
Author Organization [facility] work ([facility]) Address [address] [place] [address] Care Team Providers Care Hedis Registered Nurse Rn Name Role Phone Meme Steel MD Primary Care Provider [phone] No Pcp, Pcp Primary Care Provider Unavailabl Guadalupe Bardales MD Primary Care Provider [phone] Sena Dominguez Unavailable Levy Barry MD Primary Care Provider Unavailab le Source Comments The information that you have received may contain highly confidential and/or federally protected health information. This information has been disclosed to you from records protected by [facility]. The law prohibits you from making [...] contact the sender immediately.[facility] ([facility]) Encounter Details Date Type Department Care Team (Late st Contact Info) Description 02/09/2006 Historical Note SVMG DOZ System Devyn Vásquez MD [address] [place] [address] [phone] Social History Tobacco Use Types Packs/Day Years [...] LEATHA CARRILLO - [facility] [address] [facility] [address] [place] [phone] Brenda Clay MD [address] [facility] [address] [place] [address] 04/15/2026 10:00 AM EDT Office Visit [facility] at [facility] + [facility] [address] [facility] [address] [place] [address] Sena Dominguez PA [address] [facility] [place] [address] documented as of this encounter Visit Diagnoses Not on filedocumented in this encounter Care Teams Hedis Registered Nurse Rn Relationship Specialty Start Date End Date Meme Steel MD [address] [place] [address] 105 [place] [address] PCP - General Pediatrics 06/05/18 04/25/22 No Pcp, Pcp PCP - General 06/08/22 07/19/22 Guadalupe Mcbride MD PCP - General Family Medicine 07/20/22 11/01/23 Sena Dominguez PA [address] [place] [address] [place] [address] PCP - BRADY Physician Checker And Packer 11/02/23 Levy Barry MD [address] [place] [address] [place] [address] PCP - General Family Medicine 12/20/23 documented as of this encounter
--- OUTSIDE RECORDS SUMMARY | 2025-07-31 12:04 | XMS_ITS | Encounter Summary ---
Author Organization [facility] work ([facility]) Address [address] [place] [address] Care Team Providers Care Cherry Sorter Name Role Phone Meme Steel MD Primary Care Provider [phone] Pcp, Pcp Primary Care Provider Unavailabl Guadalupe Bardales MD Primary Care Provider [phone] Sena Dominguez Unavailable [phone] Levy Barry MD Primary Care Provider Unavailab le Source Comments The information that you have received may contain highly confidential and/or federally protected health information. This information has been disclosed to you from records protected by [facility]. The law prohibits [...] sender immediately.[facility] ([facility]) Encounter Details Date Type Department Care Team (Late st Contact Info) Description 02/09/2006 Historical Note SVMG relocality System Devyn Vásquez MD [address] [place] [address] [phone] Social History Tobacco Use Types Packs/Day Years [...] CARRILLO - [facility] [address] [facility] [address] [place] [phone] Brenda Clay MD [address] [facility] [address] [place] [address] 04/15/2026 10:00 AM EDT Office Visit [facility]HA [facility] at [facility] + [facility] [address] [facility] [address] [place] [address] Sena Dominguez PA [address] [facility] [place] [address] documented as of this encounter Visit Diagnoses Not on filedocumented in this encounter Care Teams Cherry Sorter Relationship Specialty Start Date End Date Meme Steel MD [address] [place] [address] 105 [place] [address] PCP - General Pediatrics 06/05/18 04/25/22 No Pcp, Pcp PCP - General 06/08/22 07/19/22 Guadalupe Mcbride MD PCP - General Family Medicine 07/20/22 11/01/23 Sena Dominguez PA [address] [place] [address] [place] [address] PCP - BRADY Physician Ticketer 11/02/23 Levy Barry MD [address] [place] [address] [place] [address] PCP - General Family Medicine 12/20/23 documented as of this encounter
--- OUTSIDE RECORDS SUMMARY | 2025-07-31 12:04 | XMS_ITS | Encounter Summary ---
Author Organization [facility] work ([facility]) Address [address] [place] [address] Care Team Providers Care Guest Services Ambassador Name Role Phone Meme Steel MD Primary Care Provider No Pcp, Pcp Primary Care Provider Unavailabl Guadalupe Bardales MD Primary Care Provider [phone] Sena Dominguez Unavailable [phone] Levy Barry MD Primary Care Provider Unavailab le Source Comments The information that you have received may contain highly confidential and/or federally protected health information. This information has been disclosed to you from records protected by [facility]. The law prohibits you [...] [facility] ([facility]) Encounter Details Date Type Department Care Team (Late st Contact Info) Description 05/24/2012 Historical Note SVMG BusinessElite System Devyn Vásquez MD [address] [place] [address] [phone] Social History Tobacco Use Types Packs/Day Years [...] CARRILLO - [facility] [address] [facility] [address] [place] [phone] Brenda Clay MD [address] [facility] [address] [place] [address] 04/15/2026 10:00 AM EDT Office Visit [facility] + [facility] [address] [facility] [address] [place] [address] Sena Dominguez PA [address] [facility] [place] [address] documented as of this encounter Visit Diagnoses Not on filedocumented in this encounter Care Teams Guest Services Ambassador Relationship Specialty Start Date End Date Meme Steel MD [address] [place] [address] 105 [place] [address] PCP - General Pediatrics 06/05/18 04/25/22 No Pcp, Pcp PCP - General 06/08/22 07/19/22 Guadalupe Mcbride MD PCP - General Family Medicine 07/20/22 11/01/23 Sena Dominguez PA [address] [place] [address] [place] [address] PCP - BRADY Physician Flour Mixer 11/02/23 Levy Barry MD [address] [place] [address] [place] [address] PCP - General Family Medicine 12/20/23 documented as of this encounter
--- OUTSIDE RECORDS SUMMARY | 2025-07-31 12:04 | XMS_ITS | Encounter Summary ---
Author Organization [facility] work ([facility]) Address [address] [place] [address] Care Team Providers Care Rail Bender Name Role Phone Meme Steel MD Primary Care Provider [phone] Pcp, Pcp Primary Care Provider Unavailabl Guadalupe Bardales MD Primary Care Provider [phone] Sena Dominguez Unavailable [phone] Levy Barry MD Primary Care Provider Unavailab le Source Comments The information that you have received may contain highly confidential and/or federally protected health information. This information has been disclosed to you from records protected by [facility]. The law prohibits you from [...] [facility] ([facility]) Encounter Details Date Type Department Care Team (Late st Contact Info) Description 05/22/2012 Historical Note [facility]G PowerSmart System Devyn Vásquez MD [address] [place] [address] [phone] Social History Tobacco Use Types Packs/Day Years [...] CARRILLO - [facility] at [facility] [address] [facility] [address] [place] [phone] Brenda Clay MD [address] [facility] [address] [place] [address] 04/15/2026 10:00 AM EDT Office Visit LE[facility]HA [facility] at [facility] + [facility] [address] [facility] [address] [place] [address] Sena Dominguez PA [address] [facility] [place] [address] documented as of this encounter Visit Diagnoses Not on filedocumented in this encounter Care Teams Rail Bender Relationship Specialty Start Date End Date Meme Steel MD [address] [place] [address] 105 [place] [address] PCP - General Pediatrics 06/05/18 04/25/22 No Pcp, Pcp PCP - General 06/08/22 07/19/22 Guadalupe Mcbride MD PCP - General Family Medicine 07/20/22 11/01/23 Sena Dominguez PA [address] [place] [address] [place] [address] PCP - BRADY Physician Patient Support Partner 11/02/23 Levy Barry MD [address] [place] [address] [place] [address] PCP - General Family Medicine 12/20/23 documented as of this encounter
--- OUTSIDE RECORDS SUMMARY | 2025-07-31 12:04 | XMS_ITS | Encounter Summary ---
Author Organization [facility] work ([facility]) Address [address] [place] [address] Care Team Providers Care Airport Tower Controller Name Role Phone Meme Steel MD Primary Care Provider [phone] Pcp, Pcp Primary Care Provider Unavailabl Guadalupe Bardales MD Primary Care Provider [phone] Sena Dominguez Unavailable [phone] Levy Barry MD Primary Care Provider Unavailab le Source Comments The information that you have received may contain highly confidential and/or federally protected health information. This information has been disclosed to you from records protected by [facility]. The law prohibits you from [...] please contact the sender immediately.[facility] ([facility]) Encounter Details Date Type Department Care Team (Late st Contact Info) Description 01/23/2006 Historical Note SVMG NeuString System Devyn Vásquez MD [address] [place] [address] [phone] Social History Tobacco Use Types Packs/Day Years [...] - [facility] [address] [facility] [address] [place] [phone] Brenda Clay MD [address] [facility] [address] [place] [address] 04/15/2026 10:00 AM EDT Office Visit [facility]HA [facility] + [facility] [address] [facility] [address] [place] [address] Sena Dominguez PA [address] [facility] [place] [address] documented as of this encounter Visit Diagnoses Not on filedocumented in this encounter Care Teams Airport Tower Controller Relationship Specialty Start Date End Date Meme Steel MD [address] [place] [address] 105 [place] [address] PCP - General Pediatrics 06/05/18 04/25/22 No Pcp, Pcp PCP - General 06/08/22 07/19/22 Guadalupe Mcbride MD PCP - General Family Medicine 07/20/22 11/01/23 Sena Dominguez PA [address] [place] [address] [place] [address] PCP - BRADY Physician Conductor Sleeping Car 11/02/23 Levy Barry MD [address] [place] [address] [place] [address] PCP - General Family Medicine 12/20/23 documented as of this encounter
--- OUTSIDE RECORDS SUMMARY | 2025-07-31 12:05 | XMS_ITS | Encounter Summary ---
Author Organization [facility] work ([facility]) Address [address] [place] [address] Care Team Providers Care Advertising Representative Name Role Phone Meme Steel MD Primary Care Provider [phone] No Pcp, Pcp Primary Care Provider Unavailabl Guadalupe Bardales MD Primary Care Provider [phone] Sena Dominguez Unavailable [phone] Levy Barry MD Primary Care Provider Unavailab le Source Comments The information that you have received may contain highly confidential and/or federally protected health information. This information has been disclosed to you from records protected by [facility]. The law prohibits you from [...] error, please contact the sender immediately.[facility] ([facility]) Encounter Details Date Type Department Care Team (Late st Contact Info) Description 11/03/2005 Historical Note SVMG Floop Technologies System Devyn Vásquez MD [address] [place] [address] [phone] Social History Tobacco Use Types Packs/Day Years [...] LEATHA CARRILLO - [facility] [address] [facility] [address] [place] [phone] Brenda Clay MD [address] [facility] [address] [place] [address] 04/15/2026 10:00 AM EDT Office Visit [facility]HA [facility] at [facility] + [facility] [address] [facility] [address] [place] [address] Sena Dominguez PA [address] [facility] [place] [address] documented as of this encounter Visit Diagnoses Not on filedocumented in this encounter Care Teams Advertising Representative Relationship Specialty Start Date End Date Meme Steel MD [address] [place] [address] 105 [place] [address] PCP - General Pediatrics 06/05/18 04/25/22 No Pcp, Pcp PCP - General 06/08/22 07/19/22 Guadalupe Mcbride MD PCP - General Family Medicine 07/20/22 11/01/23 Sena Dmoinguez PA [address] [place] [address] [place] [address] PCP - BRADY Physician Reinforcing Bar Setter 11/02/23 Levy Barry MD [address] [place] [address] [place] [address] PCP - General Family Medicine 12/20/23 documented as of this encounter
--- OUTSIDE RECORDS SUMMARY | 2025-07-31 12:05 | XMS_ITS | Encounter Summary ---
Author Organization [facility] work ([facility]) Address [address] [place] [address] Care Team Providers Care Grinding Mill Operator Name Role Phone Meme Steel MD Primary Care Provider [phone] Pcp, Pcp Primary Care Provider Unavailabl Guadalupe Bardales MD Primary Care Provider [phone] Sena Dominguez Unavailable [phone] Levy Barry MD Primary Care Provider Unavailab le Source Comments The information that you have received may contain highly confidential and/or federally protected health information. This information has been disclosed to you from records protected by [facility]. The law prohibits you from [...] please contact the sender immediately.[facility] ([facility]) Encounter Details Date Type Department Care Team (Late st Contact Info) Description 03/09/2017 Historical Note SVMG GridBridge System Devyn Vásquez MD [address] [place] [address] [phone] Social History Tobacco Use Types Packs/Day Years [...] LEATHA CARRILLO - [facility] [address] [facility] [address] [place] [phone] Brenda Clay MD [address] [facility] [address] [place] [address] 04/15/2026 10:00 AM EDT Office Visit LEATHA [facility] at [facility] + [facility] [address] [facility] [address] [place] [address] Sena Dominguez PA [address] [facility] [place] [address] documented as of this encounter Visit Diagnoses Not on filedocumented in this encounter Care Teams Grinding Mill Operator Relationship Specialty Start Date End Date Meme Steel MD [address] [place] [address] 105 [place] [address] PCP - General Pediatrics 06/05/18 04/25/22 No Pcp, Pcp PCP - General 06/08/22 07/19/22 Guadalupe Mcbride MD PCP - General Family Medicine 07/20/22 11/01/23 Sena Dominguez PA [address] [place] [address] [place] [address] PCP - BRADY Physician Repair Supervisor 11/02/23 Levy Barry MD [address] [place] [address] [place] [address] PCP - General Family Medicine 12/20/23 documented as of this encounter
--- OUTSIDE RECORDS SUMMARY | 2025-07-31 12:05 | XMS_ITS | Encounter Summary ---
Author Organization [facility] work ([facility]) Address [address] [place] [address] Care Team Providers Care Carbonation Equipment Tender Name Role Phone Meme Steel MD Primary Care Provider [phone] No Pcp, Pcp Primary Care Provider Unavailabl Guadalupe Bardales MD Primary Care Provider [phone] Sena Dominguez Unavailable Levy Barry MD Primary Care Provider Unavailab le Source Comments The information that you have received may contain highly confidential and/or federally protected health information. This information has been disclosed to you from records protected by [facility]. The [...] Contact Info) Description 11/28/2005 Historical Note SVMG [employer] System Devyn Vásquez MD [address] [place] [address] [phone] Social History Tobacco Use Types Packs/Day Years [...] - [facility] [address] [facility] [address] [place] [phone] Brenda Clay MD [address] [facility] [address] [place] [address] 04/15/2026 10:00 AM EDT Office Visit [facility]HA [facility] at [facility] + [facility] [address] [facility] [address] [place] [address] Sena Dominguez PA [address] [facility] [place] [address] documented as of this encounter Visit Diagnoses Not on filedocumented in this encounter Care Teams Carbonation Equipment Tender Relationship Specialty Start Date End Date Meme Steel MD [address] [place] [address] 105 [place] [address] PCP - General Pediatrics 06/05/18 04/25/22 No Pcp, Pcp PCP - General 06/08/22 07/19/22 Guadalupe Mcbride MD PCP - General Family Medicine 07/20/22 11/01/23 Sena Dominguez PA [address] [place] [address] [place] [address] PCP - BRADY Physician Extrusion Press Adjuster 11/02/23 Levy Barry MD [address] [place] [address] [place] [address] PCP - General Family Medicine 12/20/23 documented as of this encounter
--- OUTSIDE RECORDS SUMMARY | 2025-07-31 12:05 | XMS_ITS | Encounter Summary ---
Author Organization [facility] work ([facility]) Address [address] [place] [address] Care Team Providers Care Sheet Ironworker Name Role Phone eMme Steel MD Primary Care Provider [phone] Pcp, Pcp Primary Care Provider Unavailabl Guadalupe Bardales MD Primary Care Provider [phone] Sena Dominguez Unavailable [phone] Levy Barry MD Primary Care Provider Unavailab le Source Comments The information that you have received may contain highly confidential and/or federally protected health information. This information has been disclosed to you from records protected by [facility]. The law prohibits you from [...] error, please contact the sender immediately.[facility] ([facility]) Encounter Details Date Type Department Care Team (Late st Contact Info) Description 11/21/2005 Historical Note [facility] AdMobius System Devyn Vásquez MD [address] [place] [address] [phone] Social History Tobacco Use Types Packs/Day Years [...] CARRILLO - [facility] [address] [facility] [facility] [address] [place] [phone] Brenda Clay MD [address] [facility] [address] [place] [phone] 04/15/2026 10:00 AM EDT Office Visit [facility] [address] [facility] [place] [address] Sena Dominguez PA [address] [facility] [place] [address] documented as of this encounter Visit Diagnoses Not on filedocumented in this encounter Care Teams Sheet Ironworker Relationship Specialty Start Date End Date Meme Steel MD [address] [place] [address] [place] [address] PCP - General Pediatrics 06/05/18 04/25/22 No Pcp, Pcp PCP - General 06/08/22 07/19/22 Guadalupe Mcbride MD PCP - General Family Medicine 07/20/22 11/01/23 Sena Dominguez PA [address] [place] [address] [place] [address] PCP - BRADY Physician Dining Room Attendant 11/02/23 Levy Barry MD [address] [place] [address] [place] [address] PCP - General Family Medicine 12/20/23 documented as of this encounter
--- OUTSIDE RECORDS SUMMARY | 2025-07-31 12:05 | XMS_ITS | Encounter Summary ---
Author Organization [facility] work ([facility]) Address [address] [place] [address] Care Team Providers Care Neurology Physician Assistant Name Role Phone Meme Steel MD Primary Care Provider [phone] Pcp, Pcp Primary Care Provider Unavailabl Guadalupe Bardales MD Primary Care Provider [phone] Sena Dominguez Unavailable [phone] Levy Barry MD Primary Care Provider Unavailab le Source Comments The information that you have received may contain highly confidential and/or federally protected health information. This information has been disclosed to you from records protected by [facility]. The law prohibits you from making [...] error, please contact the sender immediately.[facility] ([facility]) Encounter Details Date Type Department Care Team (Late st Contact Info) Description 11/07/2005 Historical Note [facility] Big Super Search System Devyn Vásquez MD [address] [place] [address] [phone] Social History Tobacco Use Types Packs/Day Years [...] LEATHA CARRILLO - [facility] [address] [facility] [address] [place] [phone] Brenda Clay MD [address] [facility] [address] [place] [address] 04/15/2026 10:00 AM EDT Office Visit [facility] at [facility] [address] [place] [address] Sena Dominguez PA [address] [facility] [place] [address] documented as of this encounter Visit Diagnoses Not on filedocumented in this encounter Care Teams Neurology Physician Assistant Relationship Specialty Start Date End Date Meme Steel MD [address] [place] [address] 105 [place] [address] PCP - General Pediatrics 06/05/18 04/25/22 No Pcp, Pcp PCP - General 06/08/22 07/19/22 Guadalupe Mcbride MD PCP - General Family Medicine 07/20/22 11/01/23 Sena Dominguez PA [address] [place] [address] [place] [address] PCP - BRADY Physician General Internist And Physician Leader 11/02/23 Levy Barry MD [address] [place] [address] [place] [address] PCP - General Family Medicine 12/20/23 documented as of this encounter
--- OUTSIDE RECORDS SUMMARY | 2025-07-31 12:05 | XMS_ITS | Encounter Summary ---
Author Organization [facility] work ([facility]) Address [address] [place] [address] Care Team Providers Care Metal Miner Name Role Phone eMme Steel MD Primary Care Provider [phone] Pcp, Pcp Primary Care Provider Unavailabl Guadalupe Bradales MD Primary Care Provider [phone] Sena Dominguez Unavailable [phone] Levy Barry MD Primary Care Provider Unavailab le Source Comments The information that you have received may contain highly confidential and/or federally protected health information. This information has been disclosed to you from records protected by [facility]. The law prohibits you from [...] error, please contact the sender immediately.[facility] ([facility]) Encounter Details Date Type Department Care Team (Late st Contact Info) Description 03/09/2017 Historical Note [facility] OneUp Sports System Devyn Vásquez MD [address] [place] [address] [phone] Social History Tobacco Use Types Packs/Day Years [...] LEATHA CARRILLO - [facility] [address] [facility] [address] [place] [phone] Brenda Clay MD [address] [facility] [address] [place] [phone] 04/15/2026 10:00 AM EDT Office Visit [facility]HA [facility] at [facility] + [facility] [address] [facility] [address] [facility] [address] [place] [address] Sena Dominguez PA [address] [facility] [place] [address] documented as of this encounter Visit Diagnoses Not on filedocumented in this encounter Care Teams Metal Miner Relationship Specialty Start Date End Date Meme Steel MD [address] [place] [address] 105 [place] [address] PCP - General Pediatrics 06/05/18 04/25/22 No Pcp, Pcp PCP - General 06/08/22 07/19/22 Guadalupe Mcbride MD PCP - General Family Medicine 07/20/22 11/01/23 Sena Dominguez PA [address] [place] [address] [place] [address] PCP - BRADY Physician Credit Administration Manager 11/02/23 Levy Barry MD [address] [place] [address] [place] [address] PCP - General Family Medicine 12/20/23 documented as of this encounter
--- OUTSIDE RECORDS SUMMARY | 2025-07-31 12:05 | XMS_ITS | Encounter Summary ---
Author Organization [facility] work ([facility]) Address [address] [place] [address] Care Team Providers Care Division Field Inspector Name Role Phone Meme Steel MD Primary Care Provider [phone] No Pcp, Pcp Primary Care Provider Unavailabl Guadalupe Bardales MD Primary Care Provider [phone] Sena Dominguez Unavailable [phone] Levy Barry MD Primary Care Provider Unavailab le Source Comments The information that you have received may contain highly confidential and/or federally protected health information. This information has been disclosed to you from records protected by [facility]. The law prohibits [...] please contact the sender immediately.[facility] ([facility]) Encounter Details Date Type Department Care Team (Late st Contact Info) Description 04/14/2011 Historical Note [facility] IdeaOffer System Devyn Vásquez MD [address] [place] [address] [phone] Social History Tobacco Use Types Packs/Day Years [...] LEATHA CARRILLO - [facility] [address] [facility] [address] [place] [phone] Brenda Clay MD [address] [facility] [address] [place] [phone] 04/15/2026 10:00 AM EDT Office Visit [facility] [address] [facility] [address] [place] [address] Sena Dominguez PA [address] [facility] [place] [address] documented as of this encounter Visit Diagnoses Not on filedocumented in this encounter Care Teams Division Field Inspector Relationship Specialty Start Date End Date Meme Steel MD [address] [place] [address] 105 [place] [address] PCP - General Pediatrics 06/05/18 04/25/22 No Pcp, Pcp PCP - General 06/08/22 07/19/22 Guadalupe Mcbride MD PCP - General Family Medicine 07/20/22 11/01/23 Sena Dominguez PA [address] [place] [address] [place] [address] PCP - BRADY Physician Machine Setter 11/02/23 Levy Barry MD [address] [place] [address] [place] [address] PCP - General Family Medicine 12/20/23 documented as of this encounter
--- OUTSIDE RECORDS SUMMARY | 2025-07-31 12:05 | XMS_ITS | Encounter Summary ---
Author Organization [facility] work ([facility]) Address [address] [place] [address] Care Team Providers Care Access Analyst Name Role Phone Meme Steel MD Primary Care Provider [phone] No Pcp, Pcp Primary Care Provider Unavailabl Guadalupe Bardales MD Primary Care Provider [phone] Sena Dominguez Unavailable Levy Barry MD Primary Care Provider Unavailab le Source Comments The information that you have received may contain highly confidential and/or federally protected health information. This information has been disclosed to you from records protected by [facility]. The law prohibits you from [...] please contact the sender immediately.[facility] ([facility]) Encounter Details Date Type Department Care Team (Late st Contact Info) Description 05/18/2011 Historical Note [facility] Seismic Software System Devyn Vásquez MD [address] [place] [address] [phone] Social History Tobacco Use Types Packs/Day Years [...] - [facility] [address] [facility] [address] [place] [phone] Brenda Clay MD [address] [facility] [address] [place] [phone] 04/15/2026 10:00 AM EDT Office Visit [facility] at [facility] + [facility] [address] [facility] [address] [facility] [address] [place] [address] Sena Dominguez PA [address] [facility] [place] [address] documented as of this encounter Visit Diagnoses Not on filedocumented in this encounter Care Teams Access Analyst Relationship Specialty Start Date End Date Meme Steel MD [address] [place] [address] 105 [place] [address] PCP - General Pediatrics 06/05/18 04/25/22 No Pcp, Pcp PCP - General 06/08/22 07/19/22 Guadalupe Mcbride MD PCP - General Family Medicine 07/20/22 11/01/23 Sena Dominguez PA [address] [place] [address] [place] [address] PCP - BRADY Physician Seat Maker 11/02/23 Levy Barry MD [address] [place] [address] [place] [address] PCP - General Family Medicine 12/20/23 documented as of this encounter
--- OUTSIDE RECORDS SUMMARY | 2025-07-31 12:05 | XMS_ITS | Encounter Summary ---
Author Organization [facility] work ([facility]) Address [address] [place] [address] Care Team Providers Care Recordist Name Role Phone Meme Steel MD Primary Care Provider [phone] Pcp, Pcp Primary Care Provider Unavailabl Guadalupe Bardales MD Primary Care Provider [phone] Sena Dominguez Unavailable [phone] Levy Barry MD Primary Care Provider Unavailab le Source Comments The information that you have received may contain highly confidential and/or federally protected health information. This information has been disclosed to you from records protected by [facility]. The law prohibits [...] [facility] ([facility]) Encounter Details Date Type Department Care Team (Late st Contact Info) Description 02/16/2012 Historical Note [facility] Pet Ready System Devyn Vásquez MD [address] [place] [address] [phone] Social History Tobacco Use Types Packs/Day Years [...] Visit LEATHA CARRILLO - [facility] [address] [facility] [address] [place] [phone] Brenda Clay MD [address] [facility] [address] [place] [phone] 04/15/2026 10:00 AM EDT Office Visit [facility] at [facility] + [facility] [address] [facility] [address] [place] [address] Sena Dominguez PA [address] [facility] [place] [address] documented as of this encounter Visit Diagnoses Not on filedocumented in this encounter Care Teams Recordist Relationship Specialty Start Date End Date Meme Steel MD [address] [place] [address] 105 [place] [address] PCP - General Pediatrics 06/05/18 04/25/22 No Pcp, Pcp PCP - General 06/08/22 07/19/22 Guadalupe Mcbride MD PCP - General Family Medicine 07/20/22 11/01/23 Sena Dominguez PA [address] [place] [address] [place] [address] PCP - BRADY Physician Relief Charge Nurse 11/02/23 Levy Barry MD [address] [place] [address] [place] [address] PCP - General Family Medicine 12/20/23 documented as of this encounter
--- OUTSIDE RECORDS SUMMARY | 2025-07-31 12:05 | XMS_ITS | Encounter Summary ---
Author Organization [facility] work ([facility]) Address [address] [place] [address] Care Team Providers Care Dining Services Director Name Role Phone Meme Steel MD Primary Care Provider [phone] Pcp, Pcp Primary Care Provider Unavailabl Guadalupe Bardales MD Primary Care Provider Sena Dominguez Unavailable [phone] Levy Barry MD Primary Care Provider Unavailab le Source Comments The information that you have received may contain highly confidential and/or federally protected health information. This information has been disclosed to you from records protected by [facility]. The law prohibits you from [...] contact the sender immediately.[facility] ([facility]) Encounter Details Date Type Department Care Team (Late st Contact Info) Description 01/16/2017 Historical Note [facility] Trampoline System Devyn Vásquez MD [address] [place] [address] [phone] Social History Tobacco Use Types Packs/Day Years [...] CARRILLO - [facility] [address] [facility] [address] [place] [phone] Brenda Clay MD [address] [facility] [address] [place] [phone] 04/15/2026 10:00 AM EDT Office Visit LEATHA [facility] at [facility] + [facility] [address] [facility] [address] [place] [address] Sena Dominguez PA [address] [facility] [place] [address] documented as of this encounter Visit Diagnoses Not on filedocumented in this encounter Care Teams Dining Services Director Relationship Specialty Start Date End Date Meme Steel MD [address] [place] [address] 105 [place] [address] PCP - General Pediatrics 06/05/18 04/25/22 No Pcp, Pcp PCP - General 06/08/22 07/19/22 Guadalupe Mcbride MD PCP - General Family Medicine 07/20/22 11/01/23 Sena Dominguez PA [address] [place] [address] [place] [address] PCP - BRADY Physician Roll Icer Machine 11/02/23 Levy Barry MD [address] [place] [address] [place] [address] PCP - General Family Medicine 12/20/23 documented as of this encounter
--- OUTSIDE RECORDS SUMMARY | 2025-07-31 12:05 | XMS_ITS | Encounter Summary ---
Author Organization [facility] work ([facility]) Address [address] [place] [address] Care Team Providers Care Copper Plate Lithographer Name Role Phone Meme Steel MD Primary Care Provider [phone] No Pcp, Pcp Primary Care Provider Unavailabl Guadalupe Bardales MD Primary Care Provider [phone] Sena Dominguez Unavailable [phone] Levy Barry MD Primary Care Provider Unavailab le Source Comments The information that you have received may contain highly confidential and/or federally protected health information. This information has been disclosed to you from records protected by [facility]. The law prohibits [...] error, please contact the sender immediately.[facility] ([facility]) Encounter Details Date Type Department Care Team (Late st Contact Info) Description 11/09/2005 Historical Note [facility] GridNetworks System Devyn Vásquez MD [address] [place] [address] [phone] Social History Tobacco Use Types Packs/Day [...] LEATHA CARRILLO - [facility] [address] [facility] [address] [place] [phone] Brenda Clay MD [address] [facility] [address] [place] [phone] 04/15/2026 10:00 AM EDT Office Visit LE[facility]HA [facility] at [facility] + [facility] [address] [facility] [address] [place] [address] Sena Dominguez PA [address] [facility] [place] [address] documented as of this encounter Visit Diagnoses Not on filedocumented in this encounter Care Teams Copper Plate Lithographer Relationship Specialty Start Date End Date Meme Steel MD [address] [place] [address] 105 [place] [address] PCP - General Pediatrics 06/05/18 04/25/22 No Pcp, Pcp PCP - General 06/08/22 07/19/22 Guadalupe Mcbride MD PCP - General Family Medicine 07/20/22 11/01/23 Sena Dominguez PA [address] [place] [address] [place] [address] PCP - BRADY Physician Vascular Neurologist 11/02/23 Levy Barry MD [address] [place] [address] [place] [address] PCP - General Family Medicine 12/20/23 documented as of this encounter
--- OUTSIDE RECORDS SUMMARY | 2025-07-31 12:05 | XMS_ITS | Encounter Summary ---
Author Organization [facility] work ([facility]) Address [address] [place] [address] Care Team Providers Care Take Down Inspector Name Role Phone Meme Steel MD Primary Care Provider [phone] Pcp, Pcp Primary Care Provider Unavailabl Guadalupe Bardales MD Primary Care Provider [phone] Sena Dominguez Unavailable [phone] Levy Barry MD Primary Care Provider Unavailab le Source Comments The information that you have received may contain highly confidential and/or federally protected health information. This information has been disclosed to you from records protected by [facility]. The law prohibits you from [...] [facility] [address] [facility] ([facility]) Encounter Details Date Type Department Care Team (Late st Contact Info) Description 01/06/2006 Historical Note [facility] SergeMD System Devyn Vásquez MD [address] [place] [address] [phone] Social History Tobacco Use Types Packs/Day Years [...] CARRILLO - [facility] [address] [facility] [address] [place] [phone] Brenda Clay MD [address] [facility] [address] [place] [phone] 04/15/2026 10:00 AM EDT Office Visit [facility]HA [facility] at [facility] [address] [facility] [address] [place] [address] Sena Dominguez PA [address] [facility] [place] [address] documented as of this encounter Visit Diagnoses Not on filedocumented in this encounter Care Teams Take Down Inspector Relationship Specialty Start Date End Date Meme Steel MD [address] [place] [address] 105 [place] [address] PCP - General Pediatrics 06/05/18 04/25/22 No Pcp, Pcp PCP - General 06/08/22 07/19/22 Guadalupe Mcbride MD PCP - General Family Medicine 07/20/22 11/01/23 Sena Dominguez PA [address] [place] [address] [place] [address] PCP - BRADY Physician Power And Recovery Superintendent 11/02/23 Levy Barry MD [address] [place] [address] [place] [address] PCP - General Family Medicine 12/20/23 documented as of this encounter
--- OUTSIDE RECORDS SUMMARY | 2025-07-31 12:05 | XMS_ITS | Encounter Summary ---
Author Organization [facility] work ([facility]) Address [address] [place] [address] Care Team Providers Care Coverage Specialist Rn Name Role Phone Meme Steel MD Primary Care Provider [phone] No Pcp, Pcp Primary Care Provider Unavailabl Guaadlupe Bardales MD Primary Care Provider [phone] Sena Dominguez Unavailable [phone] Levy Barry MD Primary Care Provider Unavailab le Source Comments The information that you have received may contain highly confidential and/or federally protected health information. This information has been disclosed to you from records protected by [facility]. The law prohibits [...] please contact the sender immediately.[facility] ([facility]) Encounter Details Date Type Department Care Team (Late st Contact Info) Description 11/04/2005 Historical Note [facility] LiveAir Networks System Devyn Vásquez MD [address] [place] [address] [phone] Social History Tobacco Use Types Packs/Day Years [...] Visit LEATHA CARRILLO - [facility] [address] [facility] [address] [place] [phone] Brenda Clay MD [address] [facility] [address] [place] [phone] 04/15/2026 10:00 AM EDT Office Visit [facility]HA [facility] at [facility] + [facility] [address] [facility] [address] [place] [address] Sena Dominguez PA [address] [facility] [place] [address] documented as of this encounter Visit Diagnoses Not on filedocumented in this encounter Care Teams Coverage Specialist Rn Relationship Specialty Start Date End Date Meme Steel MD [address] [place] [address] 105 [place] [address] PCP - General Pediatrics 06/05/18 04/25/22 No Pcp, Pcp PCP - General 06/08/22 07/19/22 Guadalupe Mcbride MD PCP - General Family Medicine 07/20/22 11/01/23 Sena Dominguez PA [address] [place] [address] [place] [address] PCP - BRADY Physician Hearing Stenographer 11/02/23 Levy Barry MD [address] [place] [address] [place] [address] PCP - General Family Medicine 12/20/23 documented as of this encounter
--- OUTSIDE RECORDS SUMMARY | 2025-07-31 12:05 | XMS_ITS | Encounter Summary ---
Author Organization [facility] work ([facility]) Address [address] [place] [address] Care Team Providers Care Slice Cutting Machine Operator Name Role Phone Meme Steel MD Primary Care Provider [phone] Pcp, Pcp Primary Care Provider Unavailabl Guadalupe Bardales MD Primary Care Provider [phone] Sena Dominguez Unavailable Levy Barry MD Primary Care Provider Unavailab le Source Comments The information that you have received may contain highly confidential and/or federally protected health information. This information has been disclosed to you from records protected by [facility]. The law prohibits you from making [...] contact the sender immediately.[facility] ([facility]) Encounter Details Date Type Department Care Team (Late st Contact Info) Description 10/31/2017 Historical Note [facility] 3DMGAME System Devyn Vásquez MD [address] [place] [address] [phone] Social History Tobacco Use Types Packs/Day Years [...] Visit LEATHA CARRILLO - [facility] [address] [facility] [address] [place] [phone] Brenda Clay MD [address] [facility] [address] [place] [address] 04/15/2026 10:00 AM EDT Office Visit [facility]HA [facility] + [facility] [address] [place] [address] Sena Dominguez PA [address] [place] [address] documented as of this encounter Visit Diagnoses Not on filedocumented in this encounter Care Teams Slice Cutting Machine Operator Relationship Specialty Start Date End Date Meme Steel MD [address] [place] [address] 105 [place] [address] PCP - General Pediatrics 06/05/18 04/25/22 No Pcp, Pcp PCP - General 06/08/22 07/19/22 Guadalupe Mcbride MD PCP - General Family Medicine 07/20/22 11/01/23 Sena Dominguez PA [address] [place] [address] [place] [address] PCP - BRADY Physician Superintendent Board Mill 11/02/23 Levy Barry MD [address] [place] [address] [place] [address] PCP - General Family Medicine 12/20/23 documented as of this encounter
--- OUTSIDE RECORDS SUMMARY | 2025-07-31 12:05 | XMS_ITS | Encounter Summary ---
Author Organization [facility] work ([facility]) Address [address] [place] [address] Care Team Providers Care Full Stack Net Developer Name Role Phone Meme Steel MD Primary Care Provider [phone] Pcp, Pcp Primary Care Provider Unavailabl Guadalupe Bardales MD Primary Care Provider [phone] Sena Dominguez Unavailable Levy Barry MD Primary Care Provider Unavailab le Source Comments The information that you have received may contain highly confidential and/or federally protected health information. This information has been disclosed to you from records protected by [facility]. The law prohibits you from making [...] contact the sender immediately.[facility] ([facility]) Encounter Details Date Type Department Care Team (Late st Contact Info) Description 11/28/2005 Historical Note [facility] [employer] System eDvyn Vásquez MD [address] [place] [address] [phone] Social History Tobacco Use Types Packs/Day Years [...] LEATHA CARRILLO - [facility] [address] [facility] [address] [place] [phone] Brenda Clay MD [address] [facility] [address] [place] [address] 04/15/2026 10:00 AM EDT Office Visit LEATHA [facility] at [facility] + [facility] [address] [facility] [address] [place] [address] Sena Dominguez PA [address] [facility] [place] [address] documented as of this encounter Visit Diagnoses Not on filedocumented in this encounter Care Teams Full Stack Net Developer Relationship Specialty Start Date End Date Meme Steel MD [address] [place] [address] 105 [place] [address] PCP - General Pediatrics 06/05/18 04/25/22 No Pcp, Pcp PCP - General 06/08/22 07/19/22 Guadalupe Mcbride MD PCP - General Family Medicine 07/20/22 11/01/23 Sena Dominguez PA [address] [place] [address] [place] [address] PCP - BRADY Physician Tire Building Supervisor 11/02/23 Levy Barry MD [address] [place] [address] [place] [address] PCP - General Family Medicine 12/20/23 documented as of this encounter
--- OUTSIDE RECORDS SUMMARY | 2025-07-31 12:05 | XMS_ITS | Encounter Summary ---
Author Organization [facility] work ([facility]) Address [address] [place] [address] Care Team Providers Care Wirer Passenger Car Name Role Phone Meme Steel MD Primary Care Provider [phone] Pcp, Pcp Primary Care Provider Unavailabl Guadalupe Bardales MD Primary Care Provider [phone] Sena Dominguez Unavailable [phone] Levy Barry MD Primary Care Provider Unavailab le Source Comments The information that you have received may contain highly confidential and/or federally protected health information. This information has been disclosed to you from records protected by [facility]. The law prohibits [...] error, please contact the sender immediately.[facility] ([facility]) Encounter Details Date Type Department Care Team (Late st Contact Info) Description 04/15/2011 Historical Note [facility] VBI Vaccines System Devyn Vásquez MD [address] [place] [address] [phone] Social History Tobacco Use Types Packs/Day Years [...] AM EST Office Visit LEATHA CARRILL[facility] - [facility] [address] [facility] [address] [place] [phone] Brenda Clay MD [address] [facility] [address] [place] [address] 04/15/2026 10:00 AM EDT Office Visit LEATHA Primary [facility] at [facility] + [facility] [address] [facility] [address] [place] [address] Sena Dominguez PA [address] [facility] [place] [address] documented as of this encounter Visit Diagnoses Not on filedocumented in this encounter Care Teams Wirer Passenger Car Relationship Specialty Start Date End Date Meme Steel MD [address] [place] [address] 105 [place] [address] PCP - General Pediatrics 06/05/18 04/25/22 No Pcp, Pcp PCP - General 06/08/22 07/19/22 Guadalupe Mcbride MD PCP - General Family Medicine 07/20/22 11/01/23 Sena Dominguez PA [address] [place] [address] [place] [address] PCP - BRADY Physician Spiral Gear Generator 11/02/23 Levy Barry MD [address] [place] [address] [place] [address] PCP - General Family Medicine 12/20/23 documented as of this encounter
--- OUTSIDE RECORDS SUMMARY | 2025-07-31 12:05 | XMS_ITS | Encounter Summary ---
Author Organization [facility] work ([facility]) Address [address] [place] [address] Care Team Providers Care Baker Bread Name Role Phone Meme Steel MD Primary Care Provider [phone] Pcp, Pcp Primary Care Provider Unavailabl Guadalupe Bardales MD Primary Care Provider [phone] Sena Dominguez Unavailable [phone] Levy Barry MD Primary Care Provider Unavailab le Source Comments The information that you have received may contain highly confidential and/or federally protected health information. This information has been disclosed to you from records protected by [facility]. The law prohibits you [...] immediately.[facility] ([facility]) Encounter Details Date Type Department Care Team (Late st Contact Info) Description 04/15/2011 Historical Note [facility] Workday System Devyn Vásquez MD [address] [place] [address] [phone] Social History Tobacco Use Types Packs/Day Years [...] LEATHA CARRILLO - [facility] [address] [facility] [address] [place] [phone] Brenda Clay MD [address] [facility] [address] [place] [address] 04/15/2026 10:00 AM EDT Office Visit LEATHA [facility] at [facility] + [facility] [address] [facility] [address] [place] [address] Sena Dominguez PA [address] [facility] [place] [address] documented as of this encounter Visit Diagnoses Not on filedocumented in this encounter Care Teams Baker Bread Relationship Specialty Start Date End Date Meme Steel MD [address] [place] [address] 105 [place] [address] PCP - General Pediatrics 06/05/18 04/25/22 No Pcp, Pcp PCP - General 06/08/22 07/19/22 Guadalupe Mcbride MD PCP - General Family Medicine 07/20/22 11/01/23 Sena Dominguez PA [address] [place] [address] [place] [address] PCP - BRADY Physician Insurance Sales Executive 11/02/23 Levy Barry MD [address] [place] [address] [place] [address] PCP - General Family Medicine 12/20/23 documented as of this encounter
--- OUTSIDE RECORDS SUMMARY | 2025-07-31 12:05 | XMS_ITS | Encounter Summary ---
Author Organization [facility] work ([facility]) Address [address] [place] [address] Care Team Providers Care Operating Room Surgical Technician Name Role Phone Meme Steel MD Primary Care Provider [phone] Pcp, Pcp Primary Care Provider Unavailabl Guadalupe Bardales MD Primary Care Provider [phone] Sena Dominguez Unavailable [phone] Levy Barry MD Primary Care Provider Unavailab le Source Comments The information that you have received may contain highly confidential and/or federally protected health information. This information has been disclosed to you from records protected by [facility]. The law [...] [facility] ([facility]) Encounter Details Date Type Department Care Team (Late st Contact Info) Description 09/29/2011 Historical Note [facility] Myrio System Devyn Vásquez MD [address] [place] [address] [phone] Social History Tobacco Use Types Packs/Day Years [...] Visit LEATHA CARRILLO - [facility] [address] [facility] [address] [place] [phone] Brenda Clay MD [address] [facility] [address] [place] [address] 04/15/2026 10:00 AM EDT Office Visit [facility] [address] [facility] [address] [place] [address] Sena Dominguez PA [address] [facility] [place] [address] documented as of this encounter Visit Diagnoses Not on filedocumented in this encounter Care Teams Operating Room Surgical Technician Relationship Specialty Start Date End Date Meme Steel MD [address] [place] [address] 105 [place] [address] PCP - General Pediatrics 06/05/18 04/25/22 No Pcp, Pcp PCP - General 06/08/22 07/19/22 Guadalupe Mcbride MD PCP - General Family Medicine 07/20/22 11/01/23 Sena Dominguez PA [address] [place] [address] [place] [address] PCP - BRADY Physician Metal Coater Operator 11/02/23 Levy Barry MD [address] [place] [address] [place] [address] PCP - General Family Medicine 12/20/23 documented as of this encounter
--- OUTSIDE RECORDS SUMMARY | 2025-07-31 12:05 | XMS_ITS | Encounter Summary ---
Author Organization [facility] work ([facility]) Address [address] [place] [address] Care Team Providers Care Assembler Name Role Phone Meme Steel MD Primary Care Provider [phone] Pcp, Pcp Primary Care Provider Unavailabl Guadalupe Bardales MD Primary Care Provider [phone] Sena Dominguez Unavailable [phone] Levy Barry MD Primary Care Provider Unavailab le Source Comments The information that you have received may contain highly confidential and/or federally protected health information. This information has been disclosed to you from records protected by [facility]. The law prohibits you from [...] contact the sender immediately.[facility] ([facility]) Encounter Details Date Type Department Care Team (Late st Contact Info) Description 10/31/2017 Historical Note [facility] [employer] [facility] Devyn Vásquez MD [address] [place] [address] [phone] Social History Tobacco Use Types Packs/Day Years [...] LEATHA CARRILLO - [facility] [address] [facility] [address] [place] [phone] Brenda Clay MD [address] [facility] [address] [place] [address] 04/15/2026 10:00 AM EDT Office Visit LEATHA [facility] at [facility] + [facility] [address] [facility] [address] [place] [address] Sena Dominguez PA [address] [facility] [place] [address] documented as of this encounter Visit Diagnoses Not on filedocumented in this encounter Care Teams Assembler Relationship Specialty Start Date End Date Meme Steel MD [address] [place] [address] 105 [place] [address] PCP - General Pediatrics 06/05/18 04/25/22 No Pcp, Pcp PCP - General 06/08/22 07/19/22 Guadalupe Mcbride MD PCP - General Family Medicine 07/20/22 11/01/23 Sena Dominguez PA [address] [place] [address] [place] [address] PCP - BRADY Physician Roundhouse Supervisor 11/02/23 Levy Barry MD [address] [place] [address] [place] [address] PCP - General Family Medicine 12/20/23 documented as of this encounter
--- OUTSIDE RECORDS SUMMARY | 2025-07-31 12:05 | XMS_ITS | Encounter Summary ---
Author Organization [facility] work ([facility]) Address [address] [place] [address] Care Team Providers Care Beverage Host Name Role Phone Meme Steel MD Primary Care Provider No Pcp, Pcp Primary Care Provider Unavailabl Guadalupe Bardales MD Primary Care Provider Sena Dominguez Unavailable [phone] Levy Barry MD Primary Care Provider Unavailab le Source Comments The information that you have received may contain highly confidential and/or federally protected health information. This information has been disclosed to you from records protected by [facility]. The law prohibits you from [...] please contact the sender immediately.[facility] ([facility]) Encounter Details Date Type Department Care Team (Late st Contact Info) Description 09/08/2011 Historical Note [facility] [employer] System Devyn Vásquez MD [address] [place] [address] [phone] Social History Tobacco Use Types Packs/Day Years [...] LEATHA CARRILLO - [facility] [address] [facility] [address] [place] [phone] Brenda Clay MD [address] [facility] [address] [place] [address] 04/15/2026 10:00 AM EDT Office Visit LEATHA Primary [facility] at [facility] + [facility] [address] [facility] [address] [place] [address] Sena Dominguez PA [address] [facility] [place] [address] documented as of this encounter Visit Diagnoses Not on filedocumented in this encounter Care Teams Beverage Host Relationship Specialty Start Date End Date Meme Steel MD [address] [place] [address] 105 [place] [address] PCP - General Pediatrics 06/05/18 04/25/22 No Pcp, Pcp PCP - General 06/08/22 07/19/22 Guadalupe Mcbride MD PCP - General Family Medicine 07/20/22 11/01/23 Sena Dominguez PA [address] [place] [address] [place] [address] PCP - BRADY Physician Emergency Medical Technician 11/02/23 Levy Barry MD [address] [place] [address] [place] [address] PCP - General Family Medicine 12/20/23 documented as of this encounter
--- OUTSIDE RECORDS SUMMARY | 2025-07-31 12:05 | XMS_ITS | Encounter Summary ---
Author Organization [facility] work ([facility]) Address [address] [place] [address] Care Team Providers Care Dry Cure Worker Name Role Phone Meme Steel MD Primary Care Provider [phone] Pcp, Pcp Primary Care Provider Unavailabl Guadalupe Bardales MD Primary Care Provider [phone] Sena Dominguez Unavailable [phone] Levy Barry MD Primary Care Provider Unavailab le Source Comments The information that you have received may contain highly confidential and/or federally protected health information. This information has been disclosed to you from records protected by [facility]. The law prohibits you [...] Contact Info) Description 09/08/2011 Historical Note [facility] iCopyright System Devyn Vásquez MD [address] [place] [address] [phone] Social History Tobacco Use Types Packs/Day Years [...] LEATHA CARRILLO - [facility] [address] [facility] [address] [place] [phone] Brenda Clay MD [address] [facility] [address] [place] [address] 04/15/2026 10:00 AM EDT Office Visit LEATHA [facility] at [facility] + [facility] [address] [facility] [address] [place] [address] Sena Dominguez PA [address] [facility] [place] [address] documented as of this encounter Visit Diagnoses Not on filedocumented in this encounter Care Teams Dry Cure Worker Relationship Specialty Start Date End Date Meme Steel MD [address] [place] [address] 105 [place] [address] PCP - General Pediatrics 06/05/18 04/25/22 No Pcp, Pcp PCP - General 06/08/22 07/19/22 Guadalupe Mcbride MD PCP - General Family Medicine 07/20/22 11/01/23 Sena Dominguez PA [address] [place] [address] [place] [address] PCP - BRADY Physician Organisation And Methods Analyst 11/02/23 Levy Barry MD [address] [place] [address] [place] [address] PCP - General Family Medicine 12/20/23 documented as of this encounter
--- OUTSIDE RECORDS SUMMARY | 2025-07-31 12:05 | XMS_ITS | Encounter Summary ---
Author Organization [facility] work ([facility]) Address [address] [place] [address] Care Team Providers Care Boat Mechanic Name Role Phone Meme Steel MD Primary Care Provider [phone] Pcp, Pcp Primary Care Provider Unavailabl Guadalupe Bardales MD Primary Care Provider [phone] Sena Dominguez Unavailable [phone] Levy Barry MD Primary Care Provider Unavailab le Source Comments The information that you have received may contain highly confidential and/or federally protected health information. This information has been disclosed to you from records protected by [facility]. The law prohibits you from making [...] contact the sender immediately.[facility] ([facility]) Encounter Details Date Type Department Care Team (Late st Contact Info) Description 11/25/2010 Historical Note [facility] Giiv System Devyn Vásquez MD [address] [place] [address] [phone] Social History Tobacco Use Types Packs/Day Years [...] LEATHA CARRILLO - [facility] at [facility] [address] [facility] [address] [place] [phone] Brenda Clay MD [address] [facility] [address] [place] [address] 04/15/2026 10:00 AM EDT Office Visit LEATHA [facility] at [facility] + [facility] [address] [facility] [address] [place] [address] Sena Dominguez PA [address] [facility] [place] [address] documented as of this encounter Visit Diagnoses Not on filedocumented in this encounter Care Teams Boat Mechanic Relationship Specialty Start Date End Date Meme Steel MD [address] [place] [address] 105 [place] [address] PCP - General Pediatrics 06/05/18 04/25/22 No Pcp, Pcp PCP - General 06/08/22 07/19/22 Guadalupe Mcbride MD PCP - General Family Medicine 07/20/22 11/01/23 Sena Dominguez PA [address] [place] [address] [place] [address] PCP - BRADY Physician Log Cutter 11/02/23 Levy Barry MD [address] [place] [address] [place] [address] PCP - General Family Medicine 12/20/23 documented as of this encounter
--- OUTSIDE RECORDS SUMMARY | 2025-07-31 12:05 | XMS_ITS | Encounter Summary ---
Author Organization [facility] work ([facility]) Address [address] [facility] [address] [place] [address] Care Team Providers Care Facility Rehab Director Name Role Phone Meme Steel MD Primary Care Provider [phone] Pcp, Pcp Primary Care Provider Unavailabl e Guadalupe Mcbride MD Primary Care Provider [phone] Sena Dominguez Unavailable [phone] Levy Barry MD Primary Care Provider Unavailab le Source Comments The information that you have received may contain highly confidential and/or federally protected health information. This information has been disclosed to you from records protected by [facility]. The law prohibits you from [...] contact the sender immediately.[facility] ([facility]) Encounter Details Date Type Department Care Team (Late st Contact Info) Description 10/31/2017 Historical Note [facility] Primary Care - [facility] [address] [place] [address] Devyn Vásquez MD [facility] [place] [address] Social History Tobacco Use Types Packs/Day Years Used Date Smoking Tobacco: Never Assessed Comments Unknown Sex and Gender Information Value Date Recorded Sex Assigned at Not on file Legal Sex Female 1:04 AM EDT Gender Identity Not on file Sexual Orientation Not on file documented as of this encounter Plan of Treatment Upcoming Encounters Date Type Department Care Team ([facility] st Contact Info) Description 10/10/2025 10:00 AM EST Office Visit LEATHA OBLYNETTEN [facility] [address] [facility] [address] [place] [phone] Brenda Clay MD [address] [facility] [address] [place] [phone] 04/15/2026 10:00 AM EDT Office Visit LE[facility]HA [facility] at [facility] + [facility] [address] [facility] [address] [place] [address] Sena Dominguez PA [address] [place] [address] [place] [address] documented as of this encounter Visit Diagnoses Not on filedocumented in this encounter Care Teams Facility Rehab Director Relationship Specialty Start Date End Date Meme Steel MD [address] [place] [address] 105 [place] [address] PCP - General Pediatrics 06/05/18 04/25/22 No Pcp, Pcp PCP - General 06/08/22 07/19/22 Guadalupe Mcbride MD PCP - General Family Medicine 07/20/22 11/01/23 Sena Dominguez PA [address] [place] [address] [place] [address] PCP - BRADY Physician Coding Compliance Specialist 11/02/23 Levy Barry MD [address] [facility] [place] [address] PCP - General Family Medicine 12/20/23 documented as of this encounter
--- OUTSIDE RECORDS SUMMARY | 2025-07-31 12:05 | XMS_ITS | Encounter Summary ---
Author Organization [facility] work ([facility]) Address [address] [place] [address] Care Team Providers Care Spinneret Person Name Role Phone Meme Steel MD Primary Care Provider [phone] Pcp, Pcp Primary Care Provider Unavailabl Guadalupe Bardales MD Primary Care Provider [phone] Sena Dominguez Unavailable [phone] Levy Barry MD Primary Care Provider Unavailab le Source Comments The information that you have received may contain highly confidential and/or federally protected health information. This information has been disclosed to you from records protected by [facility]. The law prohibits you from making [...] contact the sender immediately.[facility] ([facility]) Encounter Details Date Type Department Care Team (Late st Contact Info) Description 09/22/2011 Historical Note [facility] Devyn Vásquez MD [address] [place] [address] [phone] Social History Tobacco Use Types Packs/Day Years [...] Visit LEATHA CARRILLO - [facility] [address] [facility] [address] [place] [phone] Brenda Clay MD [address] [facility] [address] [place] [address] 04/15/2026 10:00 AM EDT Office Visit [facility] [place] [facility] + [facility] [address] [facility] [address] [place] [address] Sena Dominguez PA [address] [facility] [place] [address] documented as of this encounter Visit Diagnoses Not on filedocumented in this encounter Care Teams Spinneret Person Relationship Specialty Start Date End Date Meme Steel MD [address] [place] [address] [place] [address] PCP - General Pediatrics 06/05/18 04/25/22 No Pcp, Pcp PCP - General 06/08/22 07/19/22 Guadalupe Mcbride MD PCP - General Family Medicine 07/20/22 11/01/23 Sena Dominguez PA [address] [place] [address] [place] [address] PCP - BRADY Physician Solution Designer 11/02/23 Levy Barry MD [address] [place] [address] [place] [address] PCP - General Family Medicine 12/20/23 documented as of this encounter
--- OUTSIDE RECORDS SUMMARY | 2025-07-31 12:05 | XMS_ITS | Encounter Summary ---
Author Organization [facility] work ([facility]) Address [address] [place] [address] Care Team Providers Care Nurse Practitioner Name Role Phone Meme Steel MD Primary Care Provider [phone] Pcp, Pcp Primary Care Provider Unavailabl Guadalupe Bardales MD Primary Care Provider [phone] Sena Dominguez Unavailable [phone] Levy Barry MD Primary Care Provider Unavailab le Source Comments The information that you have received may contain highly confidential and/or federally protected health information. This information has been disclosed to you from records protected by [facility]. The law [...] information in error, please contact the sender immediately.[facility] ([facility]) Encounter Details Date Type Department Care Team (Late st Contact Info) Description 11/21/2005 Historical Note [facility] [employer] [facility] Devyn Vásquez MD [address] [place] [address] [phone] Social History Tobacco Use Types Packs/Day Years [...] CARRILLO - [facility] [address] [facility] [address] [place] [phone] Brenda Clay MD 2315 [facility] [address] [place] [phone] 04/15/2026 10:00 AM EDT Office Visit [facility] + [facility] [address] [facility] [address] [place] [address] Sena Dominguez PA [address] [facility] [place] [address] documented as of this encounter Visit Diagnoses Not on filedocumented in this encounter Care Teams Nurse Practitioner Relationship Specialty Start Date End Date Meme Steel MD [address] [place] [address] [place] [address] PCP - General Pediatrics 06/05/18 04/25/22 No Pcp, Pcp PCP - General 06/08/22 07/19/22 Guadalupe Mcbride MD PCP - General Family Medicine 07/20/22 11/01/23 Sena Dominguez PA [address] [place] [address] [place] [address] PCP - BRADY Physician Flat Screen Worker 11/02/23 Levy Barry MD [address] [place] [address] [place] [address] PCP - General Family Medicine 12/20/23 documented as of this encounter
--- OUTSIDE RECORDS SUMMARY | 2025-07-31 12:05 | XMS_ITS | Encounter Summary ---
Author Organization [facility] work ([facility]) Address [address] [place] [address] Care Team Providers Care Assembler Carbon Brushes Name Role Phone Meme Steel MD Primary Care Provider [phone] Pcp, Pcp Primary Care Provider Unavailabl Guadalupe Bardales MD Primary Care Provider [phone] Sena Dominguez Unavailable [phone] Levy Barry MD Primary Care Provider Unavailab le Source Comments The information that you have received may contain highly confidential and/or federally protected health information. This information has been disclosed to you from records protected by [facility]. The law prohibits you from [...] sender immediately.[facility] ([facility]) Encounter Details Date Type Department Care Team (Late st Contact Info) Description 02/16/2012 Historical Note [facility] [employer] [facility] Devyn Vásquez MD [address] [place] [address] [phone] Social History Tobacco Use Types Packs/Day Years [...] LEATHA CARRILLO - [facility] [address] [facility] [address] [place] [phone] Brenda Clay MD [address] [facility] [address] [place] [phone] 04/15/2026 10:00 AM EDT Office Visit LEATHA [facility] at [facility] [facility] + [facility] [address] [facility] [address] [place] [address] Sena Dominguez PA [address] [facility] [place] [address] documented as of this encounter Visit Diagnoses Not on filedocumented in this encounter Care Teams Assembler Carbon Brushes Relationship Specialty Start Date End Date Meme Steel MD [address] [place] [address] 105 [place] [address] PCP - General Pediatrics 06/05/18 04/25/22 No Pcp, Pcp PCP - General 06/08/22 07/19/22 Guadalupe Mcbride MD PCP - General Family Medicine 07/20/22 11/01/23 Sena Dominguez PA [address] [place] [address] [place] [address] PCP - BRADY Physician Oil Inspector 11/02/23 Levy Barry MD [address] [place] [address] [place] [address] PCP - General Family Medicine 12/20/23 documented as of this encounter
--- OUTSIDE RECORDS SUMMARY | 2025-07-31 12:05 | XMS_ITS | Encounter Summary ---
Author Organization [facility] work ([facility]) Address [address] [facility] [address] [address] [place] [address] Care Team Providers Care Mine Engineering Manager Name Role Phone Meme Steel MD Primary Care Provider [phone] Pcp, Pcp Primary Care Provider Unavailabl Guadalupe Bardales MD Primary Care Provider [phone] Sena Dominguez Unavailable Levy Barry MD Primary Care Provider Unavailab le Source Comments The information that you have received may contain highly confidential and/or federally protected health information. This information has been disclosed to you from records protected by [facility]. The law prohibits you from [...] error, please contact the sender immediately.[facility] ([facility]) Encounter Details Date Type Department Care Team (Late st Contact Info) Description 04/12/2011 Historical Note [facility] [employer] [facility] Devyn Vásquez MD [address] [place] [address] [phone] Social History Tobacco Use Types Packs/Day Years [...] - [facility] [address] [facility] [address] [place] [phone] Brenda Clay MD [address] [facility] [address] [place] [address] 04/15/2026 10:00 AM EDT Office Visit [facility] at [facility] + [facility] [address] [facility] [address] [place] [address] Sena Dominguez PA [address] [facility] [place] [address] documented as of this encounter Visit Diagnoses Not on filedocumented in this encounter Care Teams Mine Engineering Manager Relationship Specialty Start Date End Date Meme Steel MD [address] [place] [address] 105 [place] [address] PCP - General Pediatrics 06/05/18 04/25/22 No Pcp, Pcp PCP - General 06/08/22 07/19/22 Guadalupe Mcbride MD PCP - General Family Medicine 07/20/22 11/01/23 Sena Dominguez PA [address] [place] [address] [place] [address] PCP - BRADY Physician Fagot Heater Helper 11/02/23 Levy Barry MD [address] [place] [address] [place] [address] PCP - General Family Medicine 12/20/23 documented as of this encounter
--- OUTSIDE RECORDS SUMMARY | 2025-07-31 12:05 | XMS_ITS | Encounter Summary ---
Author Organization [facility] work ([facility]) Address [address] [facility] [address] [place] [address] Care Team Providers Care Production Finisher Name Role Phone Meme Steel MD Primary Care Provider [phone] Pcp, Pcp Primary Care Provider Unavailabl Guadalupe Bardales MD Primary Care Provider [phone] Sena Dominguez Unavailable [phone] Levy Barry MD Primary Care Provider Unavailab le Source Comments The information that you have received may contain highly confidential and/or federally protected health information. This information has been disclosed to you from records protected by [facility]. The law prohibits [...] contact the sender immediately.[facility] ([facility]) Encounter Details Date Type Department Care Team (Late st Contact Info) Description 10/18/2005 Historical Note [facility] [employer] [facility] Devyn Vásquez MD [address] [place] [address] [phone] Social History Tobacco Use Types Packs/Day Years [...] CARRILLO - [facility] [address] [facility] [address] [place] [phone] Brenda Clay MD [address] [facility] [address] [place] [phone] 04/15/2026 10:00 AM EDT Office Visit LE[facility]HA [facility] at [facility] + [facility] [address] [facility] [address] [place] [address] Sena Dominguez PA [address] [facility] [place] [address] documented as of this encounter Visit Diagnoses Not on filedocumented in this encounter Care Teams Production Finisher Relationship Specialty Start Date End Date Meme Steel MD [address] [place] [address] 105 [place] [address] PCP - General Pediatrics 06/05/18 04/25/22 No Pcp, Pcp PCP - General 06/08/22 07/19/22 Guadalupe Mcbride MD PCP - General Family Medicine 07/20/22 11/01/23 Sena Dominguez PA [address] [place] [address] [place] [address] PCP - BRADY Physician Director Of Community Life 11/02/23 Levy Barry MD [address] [place] [address] [place] [address] PCP - General Family Medicine 12/20/23 documented as of this encounter
--- OUTSIDE RECORDS SUMMARY | 2025-07-31 12:05 | XMS_ITS | Encounter Summary ---
Author Organization [facility] work ([facility]) Address [address] [place] [address] Care Team Providers Care Top Coater Name Role Phone Meme Steel MD Primary Care Provider [phone] Pcp, Pcp Primary Care Provider Unavailabl Guadalupe Bardales MD Primary Care Provider [phone] Sena Dominguez Unavailable [phone] Levy Barry MD Primary Care Provider Unavailab le Source Comments The information that you have received may contain highly confidential and/or federally protected health information. This information has been disclosed to you from records protected by [facility]. The law prohibits you [...] please contact the sender immediately.[facility] ([facility]) Encounter Details Date Type Department Care Team (Late st Contact Info) Description 12/15/2005 Historical Note [facility] Wh[employer] System Devyn Vásquez MD [address] [place] [address] [phone] Social History Tobacco Use Types Packs/Day Years [...] Visit LEATHA CARRILLO - [facility] [address] [facility] [address] [place] [phone] Brenda Clay MD [address] [facility] [address] [place] [phone] 04/15/2026 10:00 AM EDT Office Visit LE[facility]HA [facility] at [facility] + [facility] [address] [facility] [address] [place] [address] Sena Dominguez PA [address] [facility] [place] [address] documented as of this encounter Visit Diagnoses Not on filedocumented in this encounter Care Teams Top Coater Relationship Specialty Start Date End Date Meme Steel MD [address] [place] [address] 105 [place] [address] PCP - General Pediatrics 06/05/18 04/25/22 No Pcp, Pcp PCP - General 06/08/22 07/19/22 Guadalupe Mcbride MD PCP - General Family Medicine 07/20/22 11/01/23 Sena Dominguez PA [address] [place] [address] [place] [address] PCP - BRADY Physician Digester Cook 11/02/23 Levy Barry MD [address] [place] [address] [place] [address] PCP - General Family Medicine 12/20/23 documented as of this encounter
--- OUTSIDE RECORDS SUMMARY | 2025-07-31 12:05 | XMS_ITS | Encounter Summary ---
Author Organization [facility] work ([facility]) Address [address] [place] [address] Care Team Providers Care Senior Oracle Database Developer Name Role Phone Meme Steel MD Primary Care Provider [phone] Pcp, Pcp Primary Care Provider Unavailabl Guadalupe Bardales MD Primary Care Provider [phone] Sena Dominguez Unavailable [phone] Levy Barry MD Primary Care Provider Unavailab le Source Comments The information that you have received may contain highly confidential and/or federally protected health information. This information has been disclosed to you from records protected by [facility]. The law prohibits [...] contact the sender immediately.[facility] ([facility]) Encounter Details Date Type Department Care Team (Late st Contact Info) Description 11/07/2005 Historical Note [facility] [employer] [facility] Devyn Vásquez MD [address] [place] [address] [phone] Social History Tobacco Use Types Packs/Day Years [...] CARRILLO - [facility] [address] [facility] [address] [place] [phone] Brenda Clay MD 23[address] [facility] [address] [place] [address] 04/15/2026 10:00 AM EDT Office Visit [facility]HA [facility] at [facility] + [facility] [address] [facility] [address] [place] [address] Sena Dominguez PA [address] [facility] [place] [address] documented as of this encounter Visit Diagnoses Not on filedocumented in this encounter Care Teams Senior Oracle Database Developer Relationship Specialty Start Date End Date Meme Steel MD [address] [place] [address] 105 [place] [address] PCP - General Pediatrics 06/05/18 04/25/22 No Pcp, Pcp PCP - General 06/08/22 07/19/22 Guadalupe Mcbride MD PCP - General Family Medicine 07/20/22 11/01/23 Sena Dominguez PA [address] [place] [address] [place] [address] PCP - BRADY Physician Assistant Media Planner 11/02/23 Levy Barry MD [address] [place] [address] [place] [address] PCP - General Family Medicine 12/20/23 documented as of this encounter
--- OUTSIDE RECORDS SUMMARY | 2025-07-31 12:05 | XMS_ITS | Encounter Summary ---
Author Organization [facility] work ([facility]) Address [address] [facility] [facility] [address] [place] [address] Care Team Providers Care Wheat Combine Driver Name Role Phone Meme Steel MD Primary Care Provider [phone] Pcp, Pcp Primary Care Provider Unavailabl Guadalupe Bardales MD Primary Care Provider [phone] Sena Dominguez Unavailable [phone] Levy Barry MD Primary Care Provider Unavailab le Source Comments The information that you have received may contain highly confidential and/or federally protected health information. This information has been disclosed to you from records protected by [facility]. The [...] sender immediately.[facility] ([facility]) Encounter Details Date Type Department Care Team (Late st Contact Info) Description 10/18/2005 Historical Note [facility] [employer] [facility] Devyn Vásquez MD [address] [place] [address] [phone] Social History Tobacco Use Types Packs/Day Years [...] LEATHA CARRILLO - [facility] [address] [facility] [address] [place] [phone] Brenda Clay MD 2315 [facility] [address] [place] [phone] 04/15/2026 10:00 AM EDT Office Visit LEATHA [facility] [address] [facility] [address] [place] [address] Sena Dominguez PA [address] [facility] [place] [address] documented as of this encounter Visit Diagnoses Not on filedocumented in this encounter Care Teams Wheat Combine Driver Relationship Specialty Start Date End Date Meme Steel MD [address] [place] [address] 105 [place] [address] PCP - General Pediatrics 06/05/18 04/25/22 No Pcp, Pcp PCP - General 06/08/22 07/19/22 Guadalupe Mcbride MD PCP - General Family Medicine 07/20/22 11/01/23 Sena Dominguez PA [address] [place] [address] [place] [address] PCP - BRADY Physician Back End Architect 11/02/23 Levy Barry MD [address] [place] [address] [place] [address] PCP - General Family Medicine 12/20/23 documented as of this encounter
--- OUTSIDE RECORDS SUMMARY | 2025-07-31 12:05 | XMS_ITS | Encounter Summary ---
Author Organization [facility] work ([facility]) Address [address] [facility] [address] [place] [address] Care Team Providers Care Surveillance Inspector Name Role Phone Meme Steel MD Primary Care Provider [phone] Pcp, Pcp Primary Care Provider Unavailabl Guadalupe Bardales MD Primary Care Provider [phone] Sena Dominguez Unavailable [phone] Levy Barry MD Primary Care Provider Unavailab le Source Comments The information that you have received may contain highly confidential and/or federally protected health information. This information has been disclosed to you from records protected by [facility]. The law prohibits you [...] please contact the sender immediately.[facility] ([facility]) Encounter Details Date Type Department Care Team (Late st Contact Info) Description 09/21/2010 Historical Note [facility] [employer] [facility] Devyn Vásquez MD [address] [place] [address] [phone] Social History Tobacco Use Types Packs/Day Years [...] CARRILLO - [facility] at [facility] [address] [facility] [address] [place] [phone] Brenda Clay MD [address] [facility] [address] [place] [phone] 04/15/2026 10:00 AM EDT Office Visit LE[facility]HA [facility] at [facility] [address] [facility] [address] [place] [address] Sena Dominguez PA [address] [facility] [place] [address] documented as of this encounter Visit Diagnoses Not on filedocumented in this encounter Care Teams Surveillance Inspector Relationship Specialty Start Date End Date Meme Steel MD [address] [place] [address] 105 [place] [address] PCP - General Pediatrics 06/05/18 04/25/22 No Pcp, Pcp PCP - General 06/08/22 07/19/22 Guadalupe Mcbride MD PCP - General Family Medicine 07/20/22 11/01/23 Sena Dominguez PA [address] [place] [address] [place] [address] PCP - BRADY Physician Machine Tool Electrician 11/02/23 Levy Barry MD [address] [place] [address] [place] [address] PCP - General Family Medicine 12/20/23 documented as of this encounter
--- OUTSIDE RECORDS SUMMARY | 2025-07-31 12:05 | XMS_ITS | Encounter Summary ---
Author Organization [facility] work ([facility]) Address [address] [place] [address] Care Team Providers Care Cargo Vessel Stewardess Name Role Phone Meme Steel MD Primary Care Provider [phone] No Pcp, Pcp Primary Care Provider Unavailabl Guadalupe Bardales MD Primary Care Provider [phone] Sena Dominguez Unavailable [phone] Levy Barry MD Primary Care Provider Unavailab le Source Comments The information that you have received may contain highly confidential and/or federally protected health information. This information has been disclosed to you from records protected by [facility]. The law prohibits you [...] contact the sender immediately.[facility] ([facility]) Encounter Details Date Type Department Care Team (Late st Contact Info) Description 04/12/2011 Historical Note [facility] [employer] System Devyn Vásquez MD [address] [place] [address] [phone] Social History Tobacco Use Types Packs/Day Years [...] LEATHA CARRILLO - [facility] [address] [facility] [address] [place] [phone] Brenda Clay MD [address] [facility] [address] [place] [address] 04/15/2026 10:00 AM EDT Office Visit LE[facility]HA [facility] at [facility] + [facility] [address] [facility] [address] [place] [address] Sena Dominguez PA [address] [facility] [place] [address] documented as of this encounter Visit Diagnoses Not on filedocumented in this encounter Care Teams Cargo Vessel Stewardess Relationship Specialty Start Date End Date Meme Steel MD [address] [place] [address] 105 [place] [address] PCP - General Pediatrics 06/05/18 04/25/22 No Pcp, Pcp PCP - General 06/08/22 07/19/22 Guadalupe Mcbride MD PCP - General Family Medicine 07/20/22 11/01/23 Sena Dominguez PA [address] [place] [address] [place] [address] PCP - BRADY Physician Intern 11/02/23 Levy Barry MD [address] [place] [address] [place] [address] PCP - General Family Medicine 12/20/23 documented as of this encounter
--- OUTSIDE RECORDS SUMMARY | 2025-07-31 12:05 | XMS_ITS | Encounter Summary ---
Author Organization [facility] work ([facility]) Address [address] [place] [address] Care Team Providers Care Colliery Clerk Name Role Phone Meme Steel MD Primary Care Provider [phone] Pcp, Pcp Primary Care Provider Unavailabl Guadalupe Bardales MD Primary Care Provider [phone] Sena Dominguez Unavailable [phone] Levy Barry MD Primary Care Provider Unavailab le Source Comments The information that you have received may contain highly confidential and/or federally protected health information. This information has been disclosed to you from records protected by [facility]. The law prohibits [...] error, please contact the sender immediately.[facility] ([facility]) Encounter Details Date Type Department Care Team (Late st Contact Info) Description 01/16/2017 Historical Note [facility] Timetric System Devyn Vásquez MD [address] [place] [address] [phone] Social History Tobacco Use Types Packs/Day Years [...] CARRILLO - [facility] [employer] [address] [facility] [address] [place] [phone] Brenda Clay MD [address] [facility] [address] [place] [address] 04/15/2026 10:00 AM EDT Office Visit [facility]HA [facility] at [facility] + [facility] [address] [facility] [address] [place] [address] Sena Dominguez PA [address] [facility] [place] [address] documented as of this encounter Visit Diagnoses Not on filedocumented in this encounter Care Teams Colliery Clerk Relationship Specialty Start Date End Date Meme Steel MD [address] [place] [address] [place] [address] PCP - General Pediatrics 06/05/18 04/25/22 No Pcp, Pcp PCP - General 06/08/22 07/19/22 Guadalupe Mcbride MD PCP - General Family Medicine 07/20/22 11/01/23 Sena Dominguez PA [address] [place] [address] [place] [address] PCP - BRADY Physician Paper Cleaner 11/02/23 Levy Barry MD [address] [place] [address] [place] [address] PCP - General Family Medicine 12/20/23 documented as of this encounter
--- OUTSIDE RECORDS SUMMARY | 2025-07-31 12:05 | XMS_ITS | Encounter Summary ---
Author Organization [facility] work ([facility]) Address [address] [place] [address] Care Team Providers Care Heater Furnace Name Role Phone Meme Steel MD Primary Care Provider [phone] Pcp, Pcp Primary Care Provider Unavailabl Guadalupe Bardales MD Primary Care Provider [phone] Sena Dominguez Unavailable [phone] Levy Barry MD Primary Care Provider Unavailab le Source Comments The information that you have received may contain highly confidential and/or federally protected health information. This information has been disclosed to you from records protected by [facility]. The law prohibits you from making [...] sender immediately.[facility] ([facility]) Encounter Details Date Type Department Care Team (Late st Contact Info) Description 03/09/2017 Historical Note [facility] Wiztango System Devyn Vásquez MD [address] [place] [address] [phone] Social History Tobacco Use Types Packs/Day Years [...] - [facility] [address] [facility] [address] [place] [phone] Brenda Clay MD [address] [facility] [address] [place] [address] 04/15/2026 10:00 AM EDT Office Visit [facility]HA [facility] at [facility] + [facility] [address] [facility] [address] [place] [address] Sena Dominguez PA [address] [facility] [place] [address] documented as of this encounter Visit Diagnoses Not on filedocumented in this encounter Care Teams Heater Furnace Relationship Specialty Start Date End Date Meme Steel MD [address] [place] [address] 105 [place] [address] PCP - General Pediatrics 06/05/18 04/25/22 No Pcp, Pcp PCP - General 06/08/22 07/19/22 Guadalupe Mcbride MD PCP - General Family Medicine 07/20/22 11/01/23 Sena Dominguez PA [address] [place] [address] [place] [address] PCP - BRADY Physician Electric Engine Mechanic 11/02/23 Levy Barry MD [address] [place] [address] [place] [address] PCP - General Family Medicine 12/20/23 documented as of this encounter
--- OUTSIDE RECORDS SUMMARY | 2025-07-31 12:05 | XMS_ITS | Encounter Summary ---
Author Organization [facility] work ([facility]) Address [address] [facility] [address] [place] [address] Care Team Providers Care Rn Resource Nurse Name Role Phone Meme Steel MD Primary Care Provider No Pcp, Pcp Primary Care Provider Unavailabl Guadalupe Bardales MD Primary Care Provider [phone] Sena Dominguez Unavailable [phone] Levy Barry MD Primary Care Provider Unavailab le Source Comments The information that you have received may contain highly confidential and/or federally protected health information. This information has been disclosed to you from records protected by [facility]. The law prohibits you from making [...] please contact the sender immediately.[facility] ([facility]) Encounter Details Date Type Department Care Team (Late st Contact Info) Description 01/06/2006 Historical Note [facility] MotherKnows System Devyn áVsquez MD [address] [place] [address] [phone] Social History Tobacco Use Types Packs/Day Years [...] LEATHA CARRILLO - [facility] [address] [facility] [address] [place] [phone] Brenda Clay MD [address] [facility] [address] [place] [address] 04/15/2026 10:00 AM EDT Office Visit LE[facility]HA Primary [facility] at [facility] + [facility] [address] [facility] [address] [place] [address] Sena Dominguez PA [address] [facility] [place] [address] documented as of this encounter Visit Diagnoses Not on filedocumented in this encounter Care Teams Rn Resource Nurse Relationship Specialty Start Date End Date Meme Steel MD [address] [place] [address] 105 [place] [address] PCP - General Pediatrics 06/05/18 04/25/22 No Pcp, Pcp PCP - General 06/08/22 07/19/22 Guadalupe Mcbride MD PCP - General Family Medicine 07/20/22 11/01/23 Sena Dominguez PA [address] [place] [address] [place] [address] PCP - BRADY Physician Pneumatic Hoist Operator 11/02/23 Levy Barry MD [address] [place] [address] [place] [address] PCP - General Family Medicine 12/20/23 documented as of this encounter
--- OUTSIDE RECORDS SUMMARY | 2025-07-31 12:05 | XMS_ITS | Encounter Summary ---
Author Organization [facility] work ([facility]) Address [address] [facility] [address] [address] [place] [address] Care Team Providers Care Ammonia Print Operator Name Role Phone Meme Steel MD Primary Care Provider [phone] Pcp, Pcp Primary Care Provider Unavailabl Guadalupe Bardales MD Primary Care Provider [phone] Sena Dominguez Unavailable [phone] Levy Barry MD Primary Care Provider Unavailab le Source Comments The information that you have received may contain highly confidential and/or federally protected health information. This information has been disclosed to you from records protected by [facility]. The law prohibits [...] sender immediately.[facility] ([facility]) Encounter Details Date Type Department Care Team (Late st Contact Info) Description 04/15/2011 Historical Note [facility] InformedDNA System Devyn Vásquez MD [address] [place] [address] [phone] Social History Tobacco Use Types Packs/Day Years [...] CARRILLO - [facility] [address] [facility] [address] [place] [phone] Brenda Clay MD [address] [facility] [address] [place] [phone] 04/15/2026 10:00 AM EDT Office Visit [facility]HA Primary [facility] at [facility] [address] [facility] [address] [place] [address] Sena Dominguez PA [address] [facility] [place] [address] documented as of this encounter Visit Diagnoses Not on filedocumented in this encounter Care Teams Ammonia Print Operator Relationship Specialty Start Date End Date Meme Steel MD [address] [place] [address] 105 [place] [address] PCP - General Pediatrics 06/05/18 04/25/22 No Pcp, Pcp PCP - General 06/08/22 07/19/22 Guadalupe Mcbride MD PCP - General Family Medicine 07/20/22 11/01/23 Sena Dominguez PA [address] [place] [address] [place] [address] PCP - BRADY Physician Mop Maker 11/02/23 Levy Barry MD [address] [place] [address] [place] [address] PCP - General Family Medicine 12/20/23 documented as of this encounter
--- OUTSIDE RECORDS SUMMARY | 2025-07-31 12:05 | XMS_ITS | Encounter Summary ---
Author Organization [facility] work ([facility]) Address [address] [facility] [address] [facility] [address] [place] [address] Care Team Providers Care Film Examiner Name Role Phone Meme Steel MD Primary Care Provider [phone] Pcp, Pcp Primary Care Provider Unavailabl Guadalupe Bardales MD Primary Care Provider [phone] Sena Dominguez Unavailable [phone] Levy Barry MD Primary Care Provider Unavailab le Source Comments The information that you have received may contain highly confidential and/or federally protected health information. This information has been disclosed to you from records protected by [facility]. The law prohibits you from [...] error, please contact the sender immediately.[facility] ([facility]) Encounter Details Date Type Department Care Team (Late st Contact Info) Description 11/04/2005 Historical Note [facility] BriteHub System Devyn Vásquez MD [address] [place] [address] [phone] Social History Tobacco Use Types Packs/Day Years [...] CARRILLO - [facility] [address] [facility] [address] [place] [phone] Brenda Clay MD [address] [facility] [address] [place] [address] 04/15/2026 10:00 AM EDT Office Visit LEATHA Primary [facility] at [facility] + [facility] [address] [facility] [address] [place] [address] Sena Dominguez PA [address] [facility] [place] [address] documented as of this encounter Visit Diagnoses Not on filedocumented in this encounter Care Teams Film Examiner Relationship Specialty Start Date End Date Meme Steel MD [address] [place] [address] 105 [place] [address] PCP - General Pediatrics 06/05/18 04/25/22 No Pcp, Pcp PCP - General 06/08/22 07/19/22 Guaadlupe Mcbride MD PCP - General Family Medicine 07/20/22 11/01/23 Sena Dominguez PA [address] [place] [address] [place] [address] PCP - BRADY Physician Hearing Aid Assistant 11/02/23 Levy Barry MD [address] [place] [address] [place] [address] PCP - General Family Medicine 12/20/23 documented as of this encounter
--- OUTSIDE RECORDS SUMMARY | 2025-07-31 12:05 | XMS_ITS | Encounter Summary ---
Author Organization [facility] work ([facility]) Address [address] [facility] [address] [facility] [address] [place] [address] Care Team Providers Care Stripper Black And White Name Role Phone Meme Steel MD Primary Care Provider [phone] Pcp, Pcp Primary Care Provider Unavailabl Guadalupe Bardales MD Primary Care Provider [phone] Sena Dominguez Unavailable [phone] Levy Barry MD Primary Care Provider Unavailab le Source Comments The information that you have received may contain highly confidential and/or federally protected health information. This information has been disclosed to you from records protected by [facility]. The law prohibits you from making [...] error, please contact the sender immediately.[facility] ([facility]) Encounter Details Date Type Department Care Team (Late st Contact Info) Description 11/25/2010 Historical Note [facility] Darkstrand System Devyn Vásquez MD [address] [place] [address] [phone] Social History Tobacco Use Types Packs/Day Years [...] CARRILLO - [facility] [address] [facility] [address] [place] [phone] Brenda Clay MD [address] [facility] [address] [place] [address] 04/15/2026 10:00 AM EDT Office Visit LEATHA Primary [facility] at [facility] + [facility] [address] [facility] [address] [place] [address] Sena Dominguez PA [address] [facility] [place] [address] documented as of this encounter Visit Diagnoses Not on filedocumented in this encounter Care Teams Stripper Black And White Relationship Specialty Start Date End Date Meme Steel MD [address] [place] [address] 105 [place] [address] PCP - General Pediatrics 06/05/18 04/25/22 No Pcp, Pcp PCP - General 06/08/22 07/19/22 Guadalupe Mcbride MD PCP - General Family Medicine 07/20/22 11/01/23 Sena Dominguez PA [address] [place] [address] [place] [address] PCP - BRADY Physician Farm Machine Tender 11/02/23 Levy Barry MD [address] [place] [address] [place] [address] PCP - General Family Medicine 12/20/23 documented as of this encounter
--- OUTSIDE RECORDS SUMMARY | 2025-07-31 12:05 | XMS_ITS | Encounter Summary ---
Author Organization [facility] work ([facility]) Address [address] [place] [address] Care Team Providers Care Youth Associate Name Role Phone Meme Steel MD Primary Care Provider [phone] Pcp, Pcp Primary Care Provider Unavailabl Guadalupe Bardales MD Primary Care Provider Sena Dominguez Unavailable [phone] Levy Barry MD Primary Care Provider Unavailab le Source Comments The information that you have received may contain highly confidential and/or federally protected health information. This information has been disclosed to you from records protected by [facility]. The law prohibits you from [...] sender immediately.[facility] ([facility]) Encounter Details Date Type Department Care Team (Late st Contact Info) Description 11/10/2005 Historical Note [facility] MyRealTrip System Devyn Vásquez MD [address] [place] [address] [phone] Social History Tobacco Use Types Packs/Day Years [...] CARRILLO - [facility] [address] [facility] [address] [place] [phone] Brenda Clay MD [address] [facility] [address] [place] [address] 04/15/2026 10:00 AM EDT Office Visit LEATHA Primary [facility] at [facility] + [facility] [address] [facility] [address] [place] [address] Sena Dominguez PA [address] [facility] [place] [address] documented as of this encounter Visit Diagnoses Not on filedocumented in this encounter Care Teams Youth Associate Relationship Specialty Start Date End Date Meme Steel MD [address] [place] [address] 105 [place] [address] PCP - General Pediatrics 06/05/18 04/25/22 No Pcp, Pcp PCP - General 06/08/22 07/19/22 Guadalupe Mcbride MD PCP - General Family Medicine 07/20/22 11/01/23 Sena Dominguez PA [address] [place] [address] [place] [address] PCP - BRADY Physician Signal Circuit Designer 11/02/23 Levy Barry MD [address] [place] [address] [place] [address] PCP - General Family Medicine 12/20/23 documented as of this encounter
--- OUTSIDE RECORDS SUMMARY | 2025-07-31 12:06 | XMS_ITS | Encounter Summary ---
Author Organization [facility] work ([facility]) Address [address] [facility] [address] [place] [address] Care Team Providers Care Queen'S Counsel Name Role Phone Meme Steel MD Primary Care Provider [phone] Pcp, Pcp Primary Care Provider Unavailabl Guadalupe Bardales MD Primary Care Provider [phone] Sena Dominguez Unavailable [phone] Levy Barry MD Primary Care Provider Unavailab le Source Comments The information that you have received may contain highly confidential and/or federally protected health information. This information has been disclosed to you from records protected by [facility]. The law prohibits you [...] contact the sender immediately.[facility] ([facility]) Encounter Details Date Type Department Care Team (Late st Contact Info) Description 09/10/2009 Historical Note [facility] enercast System Devyn Vásquez MD [address] [place] [address] [phone] Social History Tobacco Use Types Packs/Day Years [...] LEATHA CARRILLO - [facility] [address] [facility] [address] [place] [phone] Brenda Clay MD [address] [facility] [address] [place] [address] 04/15/2026 10:00 AM EDT Office Visit LEATHA [facility] at [facility] [address] [facility] [address] [place] [address] Sena Dominguez PA [address] [facility] [place] [address] documented as of this encounter Visit Diagnoses Not on filedocumented in this encounter Care Teams Queen'S Counsel Relationship Specialty Start Date End Date Meme Steel MD [address] [place] [address] 105 [place] [address] PCP - General Pediatrics 06/05/18 04/25/22 No Pcp, Pcp PCP - General 06/08/22 07/19/22 Guadalupe Mcbride MD PCP - General Family Medicine 07/20/22 11/01/23 Sena Dominguez PA [address] [place] [address] [place] [address] PCP - BRADY Physician Retoucher 11/02/23 Levy Barry MD [address] [place] [address] [place] [address] PCP - General Family Medicine 12/20/23 documented as of this encounter
--- OUTSIDE RECORDS SUMMARY | 2025-07-31 12:06 | XMS_ITS | Encounter Summary ---
Author Organization [facility] work ([facility]) Address [address] [place] [address] Care Team Providers Care Communications And Signals Supervisor Name Role Phone Meme Steel MD Primary Care Provider [phone] No Pcp, Pcp Primary Care Provider Unavailabl Guadalupe Bardales MD Primary Care Provider [phone] Sena Dominguez Unavailable [phone] Levy Barry MD Primary Care Provider Unavailab le Source Comments The information that you have received may contain highly confidential and/or federally protected health information. This information has been disclosed to you from records protected by [facility]. The law prohibits you [...] [facility] ([facility]) Encounter Details Date Type Department Care Team (Late st Contact Info) Description 06/14/2011 Historical Note [facility] Plaza Bank System Devyn Vásquez MD [address] [place] [address] [phone] Social History Tobacco Use Types Packs/Day Years [...] CARRILLO - [facility] at [facility] [address] [facility] [address] [place] [phone] Brenda Clay MD [address] [facility] [address] [place] [phone] 04/15/2026 10:00 AM EDT Office Visit LEATHA Primary Care at [facility] + [facility] [address] [facility] [address] [place] [address] Sena Dominguez PA [address] [facility] [place] [address] documented as of this encounter Visit Diagnoses Not on filedocumented in this encounter Care Teams Communications And Signals Supervisor Relationship Specialty Start Date End Date Meme Steel MD [address] [place] [address] 105 [place] [address] PCP - General Pediatrics 06/05/18 04/25/22 No Pcp, Pcp PCP - General 06/08/22 07/19/22 Guadalupe Mcbride MD PCP - General Family Medicine 07/20/22 11/01/23 Sena Dominguez PA [address] [place] [address] [place] [address] PCP - BRADY Physician Neurosurgical Nurse Practitioner 11/02/23 Levy Barry MD [address] [place] [address] [place] [address] PCP - General Family Medicine 12/20/23 documented as of this encounter
--- OUTSIDE RECORDS SUMMARY | 2025-07-31 12:06 | XMS_ITS | Encounter Summary ---
Author Organization [facility] work ([facility]) Address [address] [facility] [facility] [address] [place] [address] Care Team Providers Care Kier Tender Name Role Phone Meme Steel MD Primary Care Provider [phone] No Pcp, Pcp Primary Care Provider Unavailabl Guadalupe Bardales MD Primary Care Provider [phone] Sena Dominguez Unavailable [phone] Levy Barry MD Primary Care Provider Unavailab le Source Comments The information that you have received may contain highly confidential and/or federally protected health information. This information has been disclosed to you from records protected by [facility]. The law prohibits you [...] error, please contact the sender immediately.[facility] ([facility]) Encounter Details Date Type Department Care Team (Late st Contact Info) Description 01/16/2017 Historical Note [facility] LumiFold System Devyn Vásquez MD [address] [place] [address] [phone] Social History Tobacco Use Types Packs/Day Years [...] CARRILLO - [facility] [address] [facility] [address] [place] [phone] Brenda Clay MD [address] [facility] [address] [place] [address] 04/15/2026 10:00 AM EDT Office Visit LEATHA Primary [facility] at [facility] + [facility] [address] [facility] [address] [place] [address] Sena Dominguez PA [address] [facility] [place] [address] documented as of this encounter Visit Diagnoses Not on filedocumented in this encounter Care Teams Kier Tender Relationship Specialty Start Date End Date Meme Steel MD [address] [place] [address] 105 [place] [address] PCP - General Pediatrics 06/05/18 04/25/22 No Pcp, Pcp PCP - General 06/08/22 07/19/22 Guadalupe Mcbride MD PCP - General Family Medicine 07/20/22 11/01/23 Sena Dominguez PA [address] [place] [address] [place] [address] PCP - BRADY Physician Small Engine Specialist 11/02/23 Levy Barry MD [address] [place] [address] [place] [address] PCP - General Family Medicine 12/20/23 documented as of this encounter
--- OUTSIDE RECORDS SUMMARY | 2025-07-31 12:06 | XMS_ITS | Encounter Summary ---
Author Organization [facility] work ([facility]) Address [address] [place] [address] Care Team Providers Care Bread Icer Name Role Phone Meme Steel MD Primary Care Provider [phone] Pcp, Pcp Primary Care Provider Unavailabl Guadalupe Bardales MD Primary Care Provider [phone] Sena Dominguez Unavailable [phone] Levy Barry MD Primary Care Provider Unavailab le Source Comments The information that you have received may contain highly confidential and/or federally protected health information. This information has been disclosed to you from records protected by [facility]. The law prohibits you from [...] error, please contact the sender immediately.[facility] ([facility]) Encounter Details Date Type Department Care Team (Late st Contact Info) Description 09/01/2016 Historical Note [facility] RotaBan System Devyn Vásquez MD [address] [place] [address] [phone] Social History Tobacco Use Types Packs/Day Years [...] LEATHA CARRILLO - [facility] at [facility] [address] [place] [phone] Brenda Clay MD [address] [facility] [address] [place] [address] 04/15/2026 10:00 AM EDT Office Visit [facility]HA [facility] at [facility] + [facility] [address] [facility] [address] [place] [address] Sena Dominguez PA [address] [facility] [place] [address] documented as of this encounter Visit Diagnoses Not on filedocumented in this encounter Care Teams Bread Icer Relationship Specialty Start Date End Date Meme Steel MD [address] [place] [address] [place] [address] PCP - General Pediatrics 06/05/18 04/25/22 No Pcp, Pcp PCP - General 06/08/22 07/19/22 Guadalupe Mcbride MD PCP - General Family Medicine 07/20/22 11/01/23 Sena Dominguez PA [address] [place] [address] [place] [address] PCP - BRADY Physician Sand Wheeler 11/02/23 Levy Barry MD [address] [place] [address] [place] [address] PCP - General Family Medicine 12/20/23 documented as of this encounter
--- OUTSIDE RECORDS SUMMARY | 2025-07-31 12:06 | XMS_ITS | Encounter Summary ---
Author Organization [facility] work ([facility]) Address [address] [place] [address] Care Team Providers Care Division Toll Wire Chief Name Role Phone Meme Steel MD Primary Care Provider [phone] Pcp, Pcp Primary Care Provider Unavailabl Guadalupe Bardales MD Primary Care Provider [phone] Sena Dominguez Unavailable Levy Barry MD Primary Care Provider Unavailab le Source Comments The information that you have received may contain highly confidential and/or federally protected health information. This information has been disclosed to you from records protected by [facility]. The law prohibits you [...] please contact the sender immediately.[facility] ([facility]) Encounter Details Date Type Department Care Team (Late st Contact Info) Description 08/07/2009 Historical Note [facility] SafeStore System Devyn Vásquez MD [address] [place] [address] [phone] Social History Tobacco Use Types Packs/Day Years [...] LEATHA CARRILLO - [facility] [address] [facility] [address] [place] [phone] Brenda Clay MD [address] [facility] [address] [place] [phone] 04/15/2026 10:00 AM EDT Office Visit LEATHA [facility] at [facility] + [facility] [place] [address] [facility] [address] [place] [address] Sena Dominguez PA [address] [facility] [place] [address] documented as of this encounter Visit Diagnoses Not on filedocumented in this encounter Care Teams Division Toll Wire Chief Relationship Specialty Start Date End Date Meme Steel MD [address] [place] [address] 105 [place] [address] PCP - General Pediatrics 06/05/18 04/25/22 No Pcp, Pcp PCP - General 06/08/22 07/19/22 Guadalupe Mcbride MD PCP - General Family Medicine 07/20/22 11/01/23 Sena Dominguez PA [address] [place] [address] [place] [address] PCP - BRADY Physician Veneer Sample Maker 11/02/23 Levy Barry MD [address] [place] [address] [place] [address] PCP - General Family Medicine 12/20/23 documented as of this encounter
--- OUTSIDE RECORDS SUMMARY | 2025-07-31 12:06 | XMS_ITS | Encounter Summary ---
Author Organization [facility] work ([facility]) Address [address] [place] [address] Care Team Providers Care Gas Generator Operator Name Role Phone Meme Steel MD Primary Care Provider [phone] Pcp, Pcp Primary Care Provider Unavailabl Guadalupe Bardales MD Primary Care Provider [phone] Sena Dominguez Unavailable [phone] Levy Barry MD Primary Care Provider Unavailab le Source Comments The information that you have received may contain highly confidential and/or federally protected health information. This information has been disclosed to you from records protected by [facility]. The law prohibits you [...] contact the sender immediately.[facility] ([facility]) Encounter Details Date Type Department Care Team (Late st Contact Info) Description 07/13/2016 Historical Note [facility] Reamaze System Devyn Vásquez MD [address] [place] [address] [phone] Social History Tobacco Use Types Packs/Day Years [...] LEATHA CARRILLO - [facility] at [facility] [address] [facility] [address] [address] [place] [phone] Brenda Clay MD [address] [facility] [address] [place] [phone] 04/15/2026 10:00 AM EDT Office Visit LEATHA [facility] at [facility] + [facility] [address] [place] [address] Sena Dominguez PA [address] [facility] [place] [address] documented as of this encounter Visit Diagnoses Not on filedocumented in this encounter Care Teams Gas Generator Operator Relationship Specialty Start Date End Date Meme Steel MD [address] [place] [address] 105 [place] [address] PCP - General Pediatrics 06/05/18 04/25/22 No Pcp, Pcp PCP - General 06/08/22 07/19/22 Guadalupe Mcbride MD PCP - General Family Medicine 07/20/22 11/01/23 Sena Dominguez PA [address] [place] [address] [place] [address] PCP - BRADY Physician Labview Programmer 11/02/23 Levy Barry MD [address] [place] [address] [place] [address] PCP - General Family Medicine 12/20/23 documented as of this encounter
--- OUTSIDE RECORDS SUMMARY | 2025-07-31 12:06 | XMS_ITS | Encounter Summary ---
Author Organization [facility] work ([facility]) Address [address] [place] [address] Care Team Providers Care Insurance Policy Issue Clerk Name Role Phone Meme Steel MD Primary Care Provider [phone] Pcp, Pcp Primary Care Provider Unavailabl Guadalupe Bardales MD Primary Care Provider Sena Dominguez Unavailable [phone] Levy Barry MD Primary Care Provider Unavailab le Source Comments The information that you have received may contain highly confidential and/or federally protected health information. This information has been disclosed to you from records protected by [facility]. The law prohibits you [...] please contact the sender immediately.[facility] ([facility]) Encounter Details Date Type Department Care Team (Late st Contact Info) Description 06/30/2005 Historical Note [facility] Woo With Style System Devyn Vásquez MD [address] [place] [address] [phone] Social History Tobacco Use Types Packs/Day Years [...] LEATHA CARRILLO - [facility] [address] [address] [place] [phone] Brenda Clay MD [address] [facility] [address] [place] [phone] 04/15/2026 10:00 AM EDT Office Visit LEATHA [facility] at [facility] + [facility] [address] [facility] [address] [place] [address] Sena Dominguez PA [address] [facility] [place] [address] documented as of this encounter Visit Diagnoses Not on filedocumented in this encounter Care Teams Insurance Policy Issue Clerk Relationship Specialty Start Date End Date Meme Steel MD [address] [place] [address] 105 [place] [address] PCP - General Pediatrics 06/05/18 04/25/22 No Pcp, Pcp PCP - General 06/08/22 07/19/22 Guadalupe Mcbride MD PCP - General Family Medicine 07/20/22 11/01/23 Sena Dominguez PA [address] [place] [address] [place] [address] PCP - BRADY Physician Show Host 11/02/23 Levy Brary MD [address] [place] [address] [place] [address] PCP - General Family Medicine 12/20/23 documented as of this encounter
--- OUTSIDE RECORDS SUMMARY | 2025-07-31 12:06 | XMS_ITS | Encounter Summary ---
Author Organization [facility] work ([facility]) Address [address] [place] [address] Care Team Providers Care Laboratory Asst Name Role Phone Meme Steel MD Primary Care Provider [phone] Pcp, Pcp Primary Care Provider Unavailabl Guadalupe Bardales MD Primary Care Provider [phone] Sena Dominguez Unavailable [phone] Levy Barry MD Primary Care Provider Unavailab le Source Comments The information that you have received may contain highly confidential and/or federally protected health information. This information has been disclosed to you from records protected by [facility]. The law prohibits you from [...] contact the sender immediately.[facility] ([facility]) Encounter Details Date Type Department Care Team (Late st Contact Info) Description 06/02/2005 Historical Note [facility] EnergyDeck System Devyn Vásquez MD [address] [place] [address] [phone] Social History Tobacco Use Types Packs/Day Years [...] LEATHA CARRILLO - [facility] [address] [place] [phone] Brenda Clay MD [address] [facility] [address] [place] [phone] 04/15/2026 10:00 AM EDT Office Visit LEATHA Primary [facility] at [facility] + [facility] [address] [facility] [facility] [address] [place] [address] Sena Dominguez PA [address] [facility] [place] [address] documented as of this encounter Visit Diagnoses Not on filedocumented in this encounter Care Teams Laboratory Asst Relationship Specialty Start Date End Date Meme Steel MD [address] [place] [address] 105 [place] [address] PCP - General Pediatrics 06/05/18 04/25/22 No Pcp, Pcp PCP - General 06/08/22 07/19/22 Guadalupe Mcbride MD PCP - General Family Medicine 07/20/22 11/01/23 Sena Dominguez PA [address] [place] [address] [place] [address] PCP - BRADY Physician Youth Officer 11/02/23 Levy Barry MD [address] [place] [address] [place] [address] PCP - General Family Medicine 12/20/23 documented as of this encounter
--- OUTSIDE RECORDS SUMMARY | 2025-07-31 12:06 | XMS_ITS | Encounter Summary ---
Author Organization [facility] work ([facility]) Address [address] [place] [address] Care Team Providers Care Net Programmer Name Role Phone Meme Steel MD Primary Care Provider [phone] Pcp, Pcp Primary Care Provider Unavailabl Guadalupe Bardales MD Primary Care Provider [phone] Sena Dominguez Unavailable [phone] Levy Barry MD Primary Care Provider Unavailab le Source Comments The information that you have received may contain highly confidential and/or federally protected health information. This information has been disclosed to you from records protected by [facility]. The law prohibits you from making [...] sender immediately.[facility] ([facility]) Encounter Details Date Type Department Care Team (Late st Contact Info) Description 05/30/2005 Historical Note [facility] [place] System Devyn Vásquez MD [address] [place] [address] [phone] Social History Tobacco Use Types Packs/Day Years [...] [facility] at [facility] [address] [place] [phone] Brenda Clay MD [address] [facility] [address] [place] [address] 04/15/2026 10:00 AM EDT Office Visit LEATHA [facility] at [facility] + [facility] [address] [facility] [address] [place] [address] Sena Dominguez PA [address] [facility] [place] [address] documented as of this encounter Visit Diagnoses Not on filedocumented in this encounter Care Teams Net Programmer Relationship Specialty Start Date End Date Meme Steel MD [address] [place] [address] 105 [place] [address] PCP - General Pediatrics 06/05/18 04/25/22 No Pcp, Pcp PCP - General 06/08/22 07/19/22 uGadalupe Mcbride MD PCP - General Family Medicine 07/20/22 11/01/23 Sena Dominguez PA [address] [place] [address] [place] [address] PCP - BRADY Physician Director Global Intelligence 11/02/23 Levy Barry MD [address] [place] [address] [place] [address] PCP - General Family Medicine 12/20/23 documented as of this encounter
--- OUTSIDE RECORDS SUMMARY | 2025-07-31 12:06 | XMS_ITS | Encounter Summary ---
Author Organization [facility] work ([facility]) Address [address] [place] [address] Care Team Providers Care Records Tech Name Role Phone Meme Steel MD Primary Care Provider [phone] Pcp, Pcp Primary Care Provider Unavailabl Guadalupe Bardales MD Primary Care Provider [phone] Sena Dominguez Unavailable [phone] Levy Barry MD Primary Care Provider Unavailab le Source Comments The information that you have received may contain highly confidential and/or federally protected health information. This information has been disclosed to you from records protected by [facility]. The law prohibits you [...] contact the sender immediately.[facility] ([facility]) Encounter Details Date Type Department Care Team (Late st Contact Info) Description 03/29/2016 Historical Note [facility] Nanosphere System Devyn Vásquez MD [address] [place] [address] [phone] Social History Tobacco Use Types Packs/Day Years [...] CARRILLO - [facility] [address] [facility] [address] [place] [phone] Brenda Clay MD [address] [facility] [address] [place] [address] 04/15/2026 10:00 AM EDT Office Visit [facility] [address] [facility] [address] [facility] [address] [place] [address] Sena Dominguez PA [address] [facility] [place] [address] documented as of this encounter Visit Diagnoses Not on filedocumented in this encounter Care Teams Records Tech Relationship Specialty Start Date End Date Meme Steel MD [address] [place] [address] 105 [place] [address] PCP - General Pediatrics 06/05/18 04/25/22 No Pcp, Pcp PCP - General 06/08/22 07/19/22 Guadalupe Mcbride MD PCP - General Family Medicine 07/20/22 11/01/23 Sena Dominguez PA [address] [place] [address] [place] [address] PCP - BRADY Physician Dot Etcher 11/02/23 Levy Barry MD [address] [place] [address] [place] [address] PCP - General Family Medicine 12/20/23 documented as of this encounter
--- OUTSIDE RECORDS SUMMARY | 2025-07-31 12:06 | XMS_ITS | Encounter Summary ---
Author Organization [facility] work ([facility]) Address [address] [place] [address] Care Team Providers Care Hand Ii Blocker Name Role Phone Meme Steel MD Primary Care Provider [phone] Pcp, Pcp Primary Care Provider Unavailabl Guadalupe Bardales MD Primary Care Provider [phone] Sena Dominguez Unavailable [phone] Levy Barry MD Primary Care Provider Unavailab le Source Comments The information that you have received may contain highly confidential and/or federally protected health information. This information has been disclosed to you from records protected by [facility]. The law prohibits you [...] error, please contact the sender immediately.[facility] ([facility]) Encounter Details Date Type Department Care Team (Late st Contact Info) Description 03/21/2016 Historical Note SVM[facility] [place] System Devyn Vásquez MD [address] [place] [address] [phone] Social History Tobacco Use Types Packs/Day Years [...] Visit LEATHA CARRILLO - [facility] [employer] [address] [facility] [address] [place] [phone] Brenda Clay MD [address] [facility] [address] [place] [address] 04/15/2026 10:00 AM EDT Office Visit [facility] [address] [facility] [address] [place] [address] Sena Dominguez PA [address] [facility] [place] [address] documented as of this encounter Visit Diagnoses Not on filedocumented in this encounter Care Teams Hand Ii Blocker Relationship Specialty Start Date End Date Meme Steel MD [address] [place] [address] 105 [place] [address] PCP - General Pediatrics 06/05/18 04/25/22 No Pcp, Pcp PCP - General 06/08/22 07/19/22 Guadalupe Mcbride MD PCP - General Family Medicine 07/20/22 11/01/23 Sena Dominguez PA [address] [place] [address] [place] [address] PCP - BRADY Physician Clinical Education Manager 11/02/23 Levy Barry MD [address] [place] [address] [place] [address] PCP - General Family Medicine 12/20/23 documented as of this encounter
--- OUTSIDE RECORDS SUMMARY | 2025-07-31 12:06 | XMS_ITS | Encounter Summary ---
Author Organization [facility] work ([facility]) Address [address] [place] [address] Care Team Providers Care Rotating Field Assembler Name Role Phone Meme Steel MD Primary Care Provider [phone] Pcp, Pcp Primary Care Provider Unavailabl Guadalupe Bardales MD Primary Care Provider [phone] Sena Dominguez Unavailable [phone] Levy Barry MD Primary Care Provider Unavailab le Source Comments The information that you have received may contain highly confidential and/or federally protected health information. This information has been disclosed to you from records protected by [facility]. The law prohibits you [...] the sender immediately.[facility] ([facility]) Encounter Details Date Type Department Care Team (Late st Contact Info) Description 06/20/2005 Historical Note SVMG Happy Elements System Devyn Vásquez MD [address] [place] [address] [phone] Social History Tobacco Use Types Packs/Day Years [...] [facility] [address] [facility] [address] [place] [phone] Brenda Clay MD [address] [facility] [address] [place] [phone] 04/15/2026 10:00 AM EDT Office Visit LEATHA [facility] at [facility] + [facility] [address] [facility] [address] [place] [address] Sena Dominguez PA [address] [facility] [place] [address] documented as of this encounter Visit Diagnoses Not on filedocumented in this encounter Care Teams Rotating Field Assembler Relationship Specialty Start Date End Date Meme Steel MD [address] [place] [address] 105 [place] [address] PCP - General Pediatrics 06/05/18 04/25/22 No Pcp, Pcp PCP - General 06/08/22 07/19/22 Guadalupe Mcbride MD PCP - General Family Medicine 07/20/22 11/01/23 Sena Dominguez PA [address] [place] [address] [place] [address] PCP - BRADY Physician Supervisor Advice 11/02/23 Levy Barry MD [address] [place] [address] [place] [address] PCP - General Family Medicine 12/20/23 documented as of this encounter
--- OUTSIDE RECORDS SUMMARY | 2025-07-31 12:06 | XMS_ITS | Encounter Summary ---
Author Organization [facility] work ([facility]) Address [address] [place] [address] Care Team Providers Care Assistant Health Educator Name Role Phone Meme Steel MD Primary Care Provider [phone] No Pcp, Pcp Primary Care Provider Unavailabl Guadalupe Bardales MD Primary Care Provider [phone] Sena Dominguez Unavailable [phone] Levy Barry MD Primary Care Provider Unavailab le Source Comments The information that you have received may contain highly confidential and/or federally protected health information. This information has been disclosed to you from records protected by [facility]. The law [...] sender immediately.[facility] ([facility]) Encounter Details Date Type Department Care Team (Late st Contact Info) Description 11/09/2005 Historical Note [facility]G Getfugu System Devyn Vásquez MD [address] [place] [address] [phone] Social History Tobacco Use Types Packs/Day Years [...] CARRILLO - [facility] [address] [facility] [address] [place] [phone] Brenda Clay MD [address] [facility] [address] [place] [address] 04/15/2026 10:00 AM EDT Office Visit LE[facility]HA [facility] + [facility] [address] [facility] [address] [place] [address] Sena Dominguez PA [address] [facility] [place] [address] documented as of this encounter Visit Diagnoses Not on filedocumented in this encounter Care Teams Assistant Health Educator Relationship Specialty Start Date End Date Meme Steel MD [address] [place] [address] 105 [place] [address] PCP - General Pediatrics 06/05/18 04/25/22 No Pcp, Pcp PCP - General 06/08/22 07/19/22 Guadalupe Mcbride MD PCP - General Family Medicine 07/20/22 11/01/23 Sena Dominguez PA [address] [place] [address] [place] [address] PCP - BRADY Physician Jboss Architect 11/02/23 Levy Barry MD [address] [place] [address] [place] [address] PCP - General Family Medicine 12/20/23 documented as of this encounter
--- OUTSIDE RECORDS SUMMARY | 2025-07-31 12:06 | XMS_ITS | Encounter Summary ---
Author Organization [facility] work ([facility]) Address [address] [facility] [address] [place] [address] Care Team Providers Care Mat Sewer Name Role Phone Meme Steel MD Primary Care Provider No Pcp, Pcp Primary Care Provider Unavailabl Guadalupe Bardales MD Primary Care Provider [phone] Sena Dominguez Unavailable [phone] Levy Barry MD Primary Care Provider Unavailab le Source Comments The information that you have received may contain highly confidential and/or federally protected health information. This information has been disclosed to you from records protected by [facility]. The law prohibits you [...] sender immediately.[facility] ([facility]) Encounter Details Date Type Department Care Team (Late st Contact Info) Description 03/09/2016 Historical Note [facility] 1st Merchant Funding System Devyn Vásquez MD [address] [place] [address] [phone] Social History Tobacco Use Types Packs/Day Years [...] - Located Within [facility] [address] [facility] [address] [place] [phone] Brenda Clay MD [address] [facility] [address] [place] [address] 04/15/2026 10:00 AM EDT Office Visit [facility] [address] [facility] [address] [place] [address] Sena Dominguez PA [address] [facility] [place] [address] documented as of this encounter Visit Diagnoses Not on filedocumented in this encounter Care Teams Mat Sewer Relationship Specialty Start Date End Date Meme Steel MD [address] [place] [address] 105 [place] [address] PCP - General Pediatrics 06/05/18 04/25/22 No Pcp, Pcp PCP - General 06/08/22 07/19/22 Guadalupe Mcbride MD PCP - General Family Medicine 07/20/22 11/01/23 Sena Dominguez PA [address] [place] [address] [place] [address] PCP - BRADY Physician Server Service Assistant 11/02/23 Levy Barry MD [address] [place] [address] [place] [address] PCP - General Family Medicine 12/20/23 documented as of this encounter
--- OUTSIDE RECORDS SUMMARY | 2025-07-31 12:06 | XMS_ITS | Encounter Summary ---
Author Organization [facility] work ([facility]) Address [address] [facility] [address] [place] [address] Care Team Providers Care Sap Project Manager Name Role Phone Meme Steel MD Primary Care Provider [phone] Pcp, Pcp Primary Care Provider Unavailabl Guadalupe Bardales MD Primary Care Provider [phone] Sena Dominguez Unavailable [phone] Levy Barry MD Primary Care Provider Unavailab le Source Comments The information that you have received may contain highly confidential and/or federally protected health information. This information has been disclosed to you from records protected by [facility]. The law prohibits you from [...] contact the sender immediately.[facility] ([facility]) Encounter Details Date Type Department Care Team (Late st Contact Info) Description 05/12/2005 Historical Note [facility] Brightergy System Devyn Vásquez MD [address] [place] [address] [phone] Social History Tobacco Use Types Packs/Day Years [...] LEATHA CARRILLO - [facility] [address] [facility] [address] [place] [phone] Brenda Clay MD [address] [facility] [address] [place] [address] 04/15/2026 10:00 AM EDT Office Visit [facility]HA [facility] at [facility] + [facility] [address] [facility] [address] [place] [address] Sena Dominguez PA [address] [facility] [place] [address] documented as of this encounter Visit Diagnoses Not on filedocumented in this encounter Care Teams Sap Project Manager Relationship Specialty Start Date End Date Meme Steel MD [address] [place] [address] 105 [place] [address] PCP - General Pediatrics 06/05/18 04/25/22 No Pcp, Pcp PCP - General 06/08/22 07/19/22 Guadaulpe Mcbride MD PCP - General Family Medicine 07/20/22 11/01/23 Sena Dominguez PA [address] [place] [address] [place] [address] PCP - BRADY Physician Meter Installer And Remover 11/02/23 Levy Barry MD [address] [place] [address] [place] [address] PCP - General Family Medicine 12/20/23 documented as of this encounter
--- OUTSIDE RECORDS SUMMARY | 2025-07-31 12:06 | XMS_ITS | Encounter Summary ---
Author Organization [facility] work ([facility]) Address [address] [facility] [address] [place] [address] Care Team Providers Care Overlock Elastic Attacher Name Role Phone Meme Steel MD Primary Care Provider [phone] Pcp, Pcp Primary Care Provider Unavailabl Guadalupe Bardales MD Primary Care Provider [phone] Sena Dominguez Unavailable [phone] Levy Barry MD Primary Care Provider Unavailab le Source Comments The information that you have received may contain highly confidential and/or federally protected health information. This information has been disclosed to you from records protected by [facility]. The law prohibits you [...] contact the sender immediately.[facility] ([facility]) Encounter Details Date Type Department Care Team (Late st Contact Info) Description 05/31/2005 Historical Note [facility] Wave Broadband System Devyn Vásquez MD [address] [place] [address] [phone] Social History Tobacco Use Types Packs/Day Years [...] LEATHA CARRILLO - [facility] [address] [facility] [address] [place] [phone] Brenda Clay MD [address] [facility] [address] [place] [address] 04/15/2026 10:00 AM EDT Office Visit [facility] at [facility] + [facility] [address] [facility] [address] [place] [address] Sena Dominguez PA [address] [facility] [place] [address] documented as of this encounter Visit Diagnoses Not on filedocumented in this encounter Care Teams Overlock Elastic Attacher Relationship Specialty Start Date End Date Meme Steel MD [address] [place] [address] 105 [place] [address] PCP - General Pediatrics 06/05/18 04/25/22 No Pcp, Pcp PCP - General 06/08/22 07/19/22 Guadalupe Mcbride MD PCP - General Family Medicine 07/20/22 11/01/23 Sena Dominguez PA [address] [place] [address] [place] [address] PCP - BRADY Physician Provider Scribe 11/02/23 Levy Barry MD [address] [place] [address] [place] [address] PCP - General Family Medicine 12/20/23 documented as of this encounter
--- OUTSIDE RECORDS SUMMARY | 2025-07-31 12:06 | XMS_ITS | Encounter Summary ---
Author Organization [facility] work ([facility]) Address [address] [facility] [place] [address] Care Team Providers Care Taxation Agent Name Role Phone Meme Steel MD Primary Care Provider [phone] Pcp, Pcp Primary Care Provider Unavailabl Guadalupe Bardales MD Primary Care Provider [phone] Sena Dominguez Unavailable [phone] Levy Barry MD Primary Care Provider Unavailab le Source Comments The information that you have received may contain highly confidential and/or federally protected health information. This information has been disclosed to you from records protected by [facility]. The law prohibits you [...] immediately.[facility] ([facility]) Encounter Details Date Type Department Care Team (Late st Contact Info) Description 08/10/2009 Historical Note [facility] Melon #usemelon System Devyn Vásquez MD [address] [place] [address] [phone] Social History Tobacco Use Types Packs/Day Years [...] [facility] [address] [facility] [address] [place] [phone] Brenda Clay MD [address] [facility] [address] [place] [address] 04/15/2026 10:00 AM EDT Office Visit [facility]HA [facility] at [facility] + [facility] [address] [facility] [address] [place] [address] Sena Dominguez PA [address] [facility] [place] [address] documented as of this encounter Visit Diagnoses Not on filedocumented in this encounter Care Teams Taxation Agent Relationship Specialty Start Date End Date Meme Steel MD [address] [place] [address] 105 [place] [address] PCP - General Pediatrics 06/05/18 04/25/22 No Pcp, Pcp PCP - General 06/08/22 07/19/22 Guadalupe Mcbride MD PCP - General Family Medicine 07/20/22 11/01/23 Sena Dominguez PA [address] [place] [address] [place] [address] PCP - BRADY Physician Finisher [employer]ordion 11/02/23 Levy Barry MD [address] [place] [address] [place] [address] PCP - General Family Medicine 12/20/23 documented as of this encounter
--- OUTSIDE RECORDS SUMMARY | 2025-07-31 12:06 | XMS_ITS | Encounter Summary ---
Author Organization [facility] work ([facility]) Address [address] [facility] [address] [place] [address] Care Team Providers Care Money Order Clerk Name Role Phone Meme Steel MD Primary Care Provider [phone] Pcp, Pcp Primary Care Provider Unavailabl Guadalupe Bardales MD Primary Care Provider [phone] Sena Dominguez Unavailable [phone] Levy Barry MD Primary Care Provider Unavailab le Source Comments The information that you have received may contain highly confidential and/or federally protected health information. This information has been disclosed to you from records protected by [facility]. The law prohibits you from making [...] please contact the sender immediately.[facility] ([facility]) Encounter Details Date Type Department Care Team (Late st Contact Info) Description 09/10/2009 Historical Note [facility] Fashion Project System Devyn Vásquez MD [address] [place] [address] [phone] Social History Tobacco Use Types Packs/Day Years [...] LEATHA CARRILLO - [facility] [address] [facility] [address] [place] [phone] Brenda Clay MD [address] [facility] [address] [place] [address] 04/15/2026 10:00 AM EDT Office Visit LEATHA Primary [facility] at [facility] + [facility] [address] [facility] [address] [place] [address] Sena Dominguez PA [address] [facility] [place] [address] documented as of this encounter Visit Diagnoses Not on filedocumented in this encounter Care Teams Money Order Clerk Relationship Specialty Start Date End Date Meme Steel MD [address] [place] [address] 105 [place] [address] PCP - General Pediatrics 06/05/18 04/25/22 No Pcp, Pcp PCP - General 06/08/22 07/19/22 Guadalupe Mcbride MD PCP - General Family Medicine 07/20/22 11/01/23 Sena Dominguez PA [address] [place] [address] [place] [address] PCP - BRADY Physician Planning Director 11/02/23 Levy Barry MD [address] [place] [address] [place] [address] PCP - General Family Medicine 12/20/23 documented as of this encounter
--- OUTSIDE RECORDS SUMMARY | 2025-07-31 12:06 | XMS_ITS | Encounter Summary ---
Author Organization [facility] work ([facility]) Address [address] [place] [address] Care Team Providers Care Oil And Gas Well Treatment Operator Name Role Phone Meme Steel MD Primary Care Provider [phone] Pcp, Pcp Primary Care Provider Unavailabl Guadalupe Bardales MD Primary Care Provider [phone] Sena Dominguez Unavailable [phone] Levy Barry MD Primary Care Provider Unavailab le Source Comments The information that you have received may contain highly confidential and/or federally protected health information. This information has been disclosed to you from records protected by [facility]. The law prohibits you [...] error, please contact the sender immediately.[facility] ([facility]) Encounter Details Date Type Department Care Team (Late st Contact Info) Description 09/01/2009 Historical Note [facility] AwoX System Devyn Vásquez MD [address] [place] [address] [phone] Social History Tobacco Use Types Packs/Day Years [...] LEATHA CARRILLO - [facility] [address] [facility] [address] [place] [phone] Brenda Clay MD [address] [facility] [address] [place] [address] 04/15/2026 10:00 AM EDT Office Visit LEATHA Primary Care at [facility] + [facility] [address] [facility] [address] [place] [address] Sena Dominguez PA [address] [facility] [place] [address] documented as of this encounter Visit Diagnoses Not on filedocumented in this encounter Care Teams Oil And Gas Well Treatment Operator Relationship Specialty Start Date End Date Meme Steel MD [address] [place] [address] 105 [place] [address] PCP - General Pediatrics 06/05/18 04/25/22 No Pcp, Pcp PCP - General 06/08/22 07/19/22 Guadalupe Mcbride MD PCP - General Family Medicine 07/20/22 11/01/23 Sena Dominguez PA [address] [place] [address] [place] [address] PCP - BRADY Physician Skirt Trimmer 11/02/23 Levy Barry MD [address] [place] [address] [place] [address] PCP - General Family Medicine 12/20/23 documented as of this encounter
--- OUTSIDE RECORDS SUMMARY | 2025-07-31 12:06 | XMS_ITS | Encounter Summary ---
Author Organization [facility] work ([facility]) Address [address] [facility] [address] [place] [address] Care Team Providers Care Photo Print Specialist Name Role Phone Meme Steel MD Primary Care Provider [phone] Pcp, Pcp Primary Care Provider Unavailabl Guadalupe Bardales MD Primary Care Provider [phone] Sena Dominguez Unavailable [phone] Levy Barry MD Primary Care Provider Unavailab le Source Comments The information that you have received may contain highly confidential and/or federally protected health information. This information has been disclosed to you from records protected by [facility]. The law prohibits you [...] the sender immediately.[facility] ([facility]) Encounter Details Date Type Department Care Team (Late st Contact Info) Description 10/23/2009 Historical Note [facility] Teamwork Retail System Devyn Vásquez MD [address] [place] [address] [phone] Social History Tobacco Use Types Packs/Day Years [...] LEATHA CARRILLO - [facility] [address] [facility] [address] [place] [phone] Brenda Clay MD [address] [facility] [address] [place] [address] 04/15/2026 10:00 AM EDT Office Visit LEATHA Primary [facility] at [facility] + [facility] [address] [facility] [address] [place] [address] Sena Dominguez PA [address] [facility] [place] [address] documented as of this encounter Visit Diagnoses Not on filedocumented in this encounter Care Teams Photo Print Specialist Relationship Specialty Start Date End Date Meme Steel MD [address] [place] [address] 105 [place] [address] PCP - General Pediatrics 06/05/18 04/25/22 No Pcp, Pcp PCP - General 06/08/22 07/19/22 Guadalupe Mcbride MD PCP - General Family Medicine 07/20/22 11/01/23 Sena Dominguez PA [address] [place] [address] [place] [address] PCP - BRADY Physician Aircraft Loadmaster Superintendent 11/02/23 Levy Barry MD [address] [place] [address] [place] [address] PCP - General Family Medicine 12/20/23 documented as of this encounter
--- OUTSIDE RECORDS SUMMARY | 2025-07-31 12:06 | XMS_ITS | Encounter Summary ---
Author Organization [facility] work ([facility]) Address [address] [place] [address] Care Team Providers Care Ruling Machine Set Up Operator Name Role Phone Meme Steel MD Primary Care Provider [phone] No Pcp, Pcp Primary Care Provider Unavailabl Guadalupe Bardales MD Primary Care Provider [phone] Sena Dominguez Unavailable [phone] Levy Barry MD Primary Care Provider Unavailab le Source Comments The information that you have received may contain highly confidential and/or federally protected health information. This information has been disclosed to you from records protected by [facility]. The law prohibits you from [...] contact the sender immediately.[facility] ([facility]) Encounter Details Date Type Department Care Team (Late st Contact Info) Description 03/09/2016 Historical Note [facility] InSkin Media System Devyn Vásquez MD [address] [place] [address] [phone] Social History Tobacco Use Types Packs/Day Years [...] LEATHA CARRILLO - [facility] [address] [facility] [address] [place] [phone] Brenda Clay MD [address] [facility] [address] [place] [address] 04/15/2026 10:00 AM EDT Office Visit LEATHA [facility] at [facility] [address] [facility] [address] [place] [address] Sena Dominguez PA [address] [facility] [place] [address] documented as of this encounter Visit Diagnoses Not on filedocumented in this encounter Care Teams Ruling Machine Set Up Operator Relationship Specialty Start Date End Date Meme Steel MD [address] [place] [address] 105 [place] [address] PCP - General Pediatrics 06/05/18 04/25/22 No Pcp, Pcp PCP - General 06/08/22 07/19/22 Guadalupe Mcbride MD PCP - General Family Medicine 07/20/22 11/01/23 Sena Dominguez PA [address] [place] [address] [place] [address] PCP - BRADY Physician Deicer Repairer 11/02/23 Levy Barry MD [address] [place] [address] [place] [address] PCP - General Family Medicine 12/20/23 documented as of this encounter
--- OUTSIDE RECORDS SUMMARY | 2025-07-31 12:06 | XMS_ITS | Encounter Summary ---
Author Organization [facility] work ([facility]) Address [address] [facility] [address] [place] [address] Care Team Providers Care Hide Inspector Name Role Phone Meme Steel MD Primary Care Provider [phone] No Pcp, Pcp Primary Care Provider Unavailabl Guadalupe Bardales MD Primary Care Provider [phone] Sena Dominguez Unavailable [phone] Levy Barry MD Primary Care Provider Unavailab le Source Comments The information that you have received may contain highly confidential and/or federally protected health information. This information has been disclosed to you from records protected by [facility]. The law prohibits you from [...] please contact the sender immediately.[facility] ([facility]) Encounter Details Date Type Department Care Team (Late st Contact Info) Description 06/20/2005 Historical Note [facility] Plastyc System Devyn Vásquez MD [address] [place] [address] [phone] Social History Tobacco Use Types Packs/Day Years [...] CARRILLO - [facility] [address] [address] [place] [phone] Brenda Clay MD [address] [facility] [address] [place] [address] 04/15/2026 10:00 AM EDT Office Visit LEATHA Primary [facility] at [facility] + [facility] [address] [facility] [address] [place] [address] Sena Dominguez PA [address] [facility] [place] [address] documented as of this encounter Visit Diagnoses Not on filedocumented in this encounter Care Teams Hide Inspector Relationship Specialty Start Date End Date Meme Steel MD [address] [place] [address] [place] [address] PCP - General Pediatrics 06/05/18 04/25/22 No Pcp, Pcp PCP - General 06/08/22 07/19/22 Guadalupe Mcbride MD PCP - General Family Medicine 07/20/22 11/01/23 Sena Dominguez PA [address] [place] [address] [place] [address] PCP - BRADY Physician Tank Car Mechanic 11/02/23 Levy Barry MD [address] [place] [address] [place] [address] PCP - General Family Medicine 12/20/23 documented as of this encounter
--- OUTSIDE RECORDS SUMMARY | 2025-07-31 12:06 | XMS_ITS | Encounter Summary ---
Author Organization [facility] work ([facility]) Address [address] [facility] [address] [place] [address] Care Team Providers Care Buttonholer Name Role Phone Meme Steel MD Primary Care Provider [phone] Pcp, Pcp Primary Care Provider Unavailabl Guadalupe Bardales MD Primary Care Provider [phone] Sena Dominguez Unavailable [phone] Levy Barry MD Primary Care Provider Unavailab le Source Comments The information that you have received may contain highly confidential and/or federally protected health information. This information has been disclosed to you from records protected by [facility]. The law prohibits you from [...] error, please contact the sender immediately.[facility] ([facility]) Encounter Details Date Type Department Care Team (Late st Contact Info) Description 03/21/2016 Historical Note [facility] [employer] [facility] Devyn Vásquez MD [address] [place] [address] [phone] Social History Tobacco Use Types Packs/Day Years [...] LEATHA CARRILLO - [facility] [address] [facility] [address] [place] [phone] Brenda Clay MD [address] [facility] [address] [place] [phone] 04/15/2026 10:00 AM EDT Office Visit LEATHA [facility] at [facility] + [facility] [address] [facility] [address] [place] [address] Sena Dominguez PA [address] [facility] [place] [address] documented as of this encounter Visit Diagnoses Not on filedocumented in this encounter Care Teams Buttonholer Relationship Specialty Start Date End Date Meme Steel MD [address] [place] [address] 105 [place] [address] PCP - General Pediatrics 06/05/18 04/25/22 No Pcp, Pcp PCP - General 06/08/22 07/19/22 Guadalupe Mcbride MD PCP - General Family Medicine 07/20/22 11/01/23 Sena Dominguez PA [address] [place] [address] [place] [address] PCP - BRADY Physician Jewel Gauger 11/02/23 Levy Barry MD [address] [place] [address] [place] [address] PCP - General Family Medicine 12/20/23 documented as of this encounter
--- OUTSIDE RECORDS SUMMARY | 2025-07-31 12:06 | XMS_ITS | Encounter Summary ---
Author Organization [facility] work ([facility]) Address [address] [place] [address] Care Team Providers Care Aviation Project Engineer Name Role Phone Meme Steel MD Primary Care Provider No Pcp, Pcp Primary Care Provider Unavailabl Guadalupe Bardales MD Primary Care Provider [phone] Sena Dominguez Unavailable [phone] Levy [place] MD Primary Care Provider Unavailab le Source Comments The information that you have received may contain highly confidential and/or federally protected health information. This information has been disclosed to you from records protected by [facility]. The law prohibits you from [...] please contact the sender immediately.[facility] ([facility]) Encounter Details Date Type Department Care Team (Late st Contact Info) Description 05/31/2005 Historical Note [facility] [place] [employer] [facility] Devyn Vásquez MD [address] [place] [address] [id number] Social History Tobacco Use Types Packs/Day Years [...] CARRILLO - [facility] at [facility] [address] [facility] [address] [place] [phone] Brenda [place] MD [address] [facility] [address] [place] [address] 04/15/2026 10:00 AM EDT Office Visit [facility] + [facility] [address] [facility] [address] [place] [address] Sena Dominguez PA [address] [facility] [place] [address] documented as of this encounter Visit Diagnoses Not on filedocumented in this encounter Care Teams Aviation Project Engineer Relationship Specialty Start Date End Date Meme Steel MD [address] [place] [address] [place] [address] PCP - General Pediatrics 06/05/18 04/25/22 No Pcp, Pcp PCP - General 06/08/22 07/19/22 Guadalupe Mcbride MD PCP - General Family Medicine 07/20/22 11/01/23 Sena Dominguez PA [address] [place] [address] [place] [address] PCP - BRADY Physician Truck Body Builder Apprentice 11/02/23 Levy [place] MD [address] [place] [address] [place] [address] PCP - General Family Medicine 12/20/23 documented as of this encounter
--- OUTSIDE RECORDS SUMMARY | 2025-07-31 12:06 | XMS_ITS | Encounter Summary ---
Author Organization [facility] work ([facility]) Address [address] [place] [address] Care Team Providers Care Interpreter For The Deaf Name Role Phone Meme Steel MD Primary Care Provider [phone] Pcp, Pcp Primary Care Provider Unavailabl Guadalupe Bardales MD Primary Care Provider [phone] Sena Dominguez Unavailable [phone] Levy [place] MD Primary Care Provider Unavailab le Source Comments The information that you have received may contain highly confidential and/or federally protected health information. This information has been disclosed to you from records protected by [facility]. The law prohibits you from [...] sender immediately.[facility] ([facility]) Encounter Details Date Type Department Care Team (Late st Contact Info) Description 08/13/2009 Historical Note [facility] [employer] System Devyn Vásquez MD [address] [place] [address] [phone] Social History Tobacco Use Types Packs/Day Years [...] LEATHA CARRILLO - [facility] at [facility] [address] [place] [phone] Brenda [place] MD [address] [facility] [address] [place] [address] 04/15/2026 10:00 AM EDT Office Visit [facility] at [facility] + [facility] [address] [facility] [address] [place] [address] Sena Dominguez PA [address] [facility] [place] [address] documented as of this encounter Visit Diagnoses Not on filedocumented in this encounter Care Teams Interpreter For The Deaf Relationship Specialty Start Date End Date Meme Steel MD [address] [place] [address] 105 [place] [address] PCP - General Pediatrics 06/05/18 04/25/22 No Pcp, Pcp PCP - General 06/08/22 07/19/22 Guadalupe Mcbride MD PCP - General Family Medicine 07/20/22 11/01/23 Sena Dominguez PA [address] [place] [address] [place] [address] PCP - BRADY Physician Regional Flatbed Truck Driver 11/02/23 Levy [place] MD [address] [place] [address] [place] [address] PCP - General Family Medicine 12/20/23 documented as of this encounter
--- OUTSIDE RECORDS SUMMARY | 2025-07-31 12:06 | XMS_ITS | Encounter Summary ---
Author Organization [facility] work ([facility]) Address [address] [place] [address] Care Team Providers Care Transfusion Nurse Name Role Phone Meme Steel MD Primary Care Provider [phone] Pcp, Pcp Primary Care Provider Unavailabl Guadalupe Bardales MD Primary Care Provider [phone] Sena Dominguez Unavailable [phone] Levy [place] MD Primary Care Provider Unavailab le Source Comments The information that you have received may contain highly confidential and/or federally protected health information. This information has been disclosed to you from records protected by [facility]. The law prohibits you from making [...] please contact the sender immediately.[facility] ([facility]) Encounter Details Date Type Department Care Team (Late st Contact Info) Description 08/17/2010 Historical Note [facility] [employer] System Devyn Vásquez MD [address] [place] [address] [phone] Social History Tobacco Use Types Packs/Day Years [...] CARRILLO - [facility] at [facility] [address] [facility] [address] [place] [phone] Bernda [place] MD [address] [facility] [address] [place] [address] 04/15/2026 10:00 AM EDT Office Visit LEATHA Primary Care at [facility] + [facility] [address] [facility] [address] [place] [address] Sena Dominguez PA [address] [facility] [place] [address] documented as of this encounter Visit Diagnoses Not on filedocumented in this encounter Care Teams Transfusion Nurse Relationship Specialty Start Date End Date Meme Steel MD [address] [place] [address] 105 [place] [address] PCP - General Pediatrics 06/05/18 04/25/22 No Pcp, Pcp PCP - General 06/08/22 07/19/22 Guadalupe Mcbride MD PCP - General Family Medicine 07/20/22 11/01/23 Sena Dominguez PA [address] [place] [address] [place] [address] PCP - BRADY Physician Supervisor Screen Printing 11/02/23 Levy [place] MD [address] [place] [address] [place] [address] PCP - General Family Medicine 12/20/23 documented as of this encounter
--- OUTSIDE RECORDS SUMMARY | 2025-07-31 12:06 | XMS_ITS | Encounter Summary ---
Author Organization [facility] work ([facility]) Address [address] [place] [address] Care Team Providers Care Mainspring Winder Name Role Phone Meme Steel MD Primary Care Provider [phone] Pcp, Pcp Primary Care Provider Unavailabl Guadalupe Bardales MD Primary Care Provider [phone] Sena Dominguez Unavailable [phone] Levy [place] MD Primary Care Provider Unavailab le Source Comments The information that you have received may contain highly confidential and/or federally protected health information. This information has been disclosed to you from records protected by [facility]. The law prohibits you from making [...] contact the sender immediately.[facility] ([facility]) Encounter Details Date Type Department Care Team (Late st Contact Info) Description 07/13/2016 Historical Note [facility] [employer] System Devyn Vásquez MD [address] [place] [address] [phone] Social History Tobacco Use Types Packs/Day [...] - [facility] [address] [facility] [address] [place] [phone] Brenda [place] MD [address] [facility] [address] [place] [address] 04/15/2026 10:00 AM EDT Office Visit [facility]HA [facility] at [facility] + [facility] [address] [facility] [address] [place] [address] Sena Dominguez PA [address] [facility] [place] [address] documented as of this encounter Visit Diagnoses Not on filedocumented in this encounter Care Teams Mainspring Winder Relationship Specialty Start Date End Date Meme Steel MD [address] [place] [address] 105 [place] [address] PCP - General Pediatrics 06/05/18 04/25/22 No Pcp, Pcp PCP - General 06/08/22 07/19/22 Guadalupe Mcbride MD PCP - General Family Medicine 07/20/22 11/01/23 Sena Dominguez PA [address] [place] [address] [place] [address] PCP - BRADY Physician Shift Mgr 11/02/23 Levy [place] MD [address] [place] [address] [place] [address] PCP - General Family Medicine 12/20/23 documented as of this encounter
--- OUTSIDE RECORDS SUMMARY | 2025-07-31 12:06 | XMS_ITS | Encounter Summary ---
Author Organization [facility] work ([facility]) Address [address] [place] [address] Care Team Providers Care Ironer Sock Name Role Phone Meme Steel MD Primary Care Provider [phone] No Pcp, Pcp Primary Care Provider Unavailabl Guadalupe Bardales MD Primary Care Provider Sena Dominguez Unavailable [phone] Levy [place] MD Primary Care Provider Unavailab le Source Comments The information that you have received may contain highly confidential and/or federally protected health information. This information has been disclosed to you from records protected by [facility]. The law prohibits you from making [...] please contact the sender immediately.[facility] ([facility]) Encounter Details Date Type Department Care Team (Late st Contact Info) Description 03/29/2016 Historical Note [facility] Advanced Brain Monitoring System Devyn Vásquez MD [address] [place] [address] [phone] Social History Tobacco Use Types Packs/Day Years [...] Visit LEATHA CARRILLO - [facility] [address] [facility] [address] [place] [phone] Brenda [place] MD [address] [facility] [address] [place] [address] 04/15/2026 10:00 AM EDT Office Visit [facility]HA [facility] at [facility] + [facility] [address] [facility] [address] [place] [address] Sena Dominguez PA [address] [facility] [place] [address] documented as of this encounter Visit Diagnoses Not on filedocumented in this encounter Care Teams Ironer Sock Relationship Specialty Start Date End Date Meme Steel MD [address] [place] [address] 105 [place] [address] PCP - General Pediatrics 06/05/18 04/25/22 No Pcp, Pcp PCP - General 06/08/22 07/19/22 Guadalupe Mcbride MD PCP - General Family Medicine 07/20/22 11/01/23 Sena Dominguez PA [address] [place] [address] [place] [address] PCP - BRADY Physician Registered Nurse 11/02/23 Levy [place] MD [address] [place] [address] [place] [address] PCP - General Family Medicine 12/20/23 documented as of this encounter
--- OUTSIDE RECORDS SUMMARY | 2025-07-31 12:06 | XMS_ITS | Encounter Summary ---
Author Organization [facility] work ([facility]) Address [address] [place] [address] Care Team Providers Care Trimmer Buffing Wheel Name Role Phone Meme Steel MD Primary Care Provider [phone] Pcp, Pcp Primary Care Provider Unavailabl Guadalupe Bardales MD Primary Care Provider [phone] Sena Dominguez Unavailable [phone] Levy [place] MD Primary Care Provider Unavailab le Source Comments The information that you have received may contain highly confidential and/or federally protected health information. This information has been disclosed to you from records protected by [facility]. The law prohibits you [...] please contact the sender immediately.[facility] ([facility]) Encounter Details Date Type Department Care Team (Late st Contact Info) Description 02/02/2016 Historical Note [facility] [employer] System Devyn Vásquez MD [address] [place] [address] [phone] Social History Tobacco Use Types Packs/Day Years [...] LEATHA CARRILLO - [facility] [address] [facility] [address] [place] [phone] Brenda [place] MD [address] [facility] [address] [place] [address] 04/15/2026 10:00 AM EDT Office Visit LEATHA [facility] at [facility] + [facility] [address] [facility] [address] [place] [address] Sena Dominguez PA [address] [facility] [place] [address] documented as of this encounter Visit Diagnoses Not on filedocumented in this encounter Care Teams Trimmer Buffing Wheel Relationship Specialty Start Date End Date Meme Steel MD [address] [place] [address] 105 [place] [address] PCP - General Pediatrics 06/05/18 04/25/22 No Pcp, Pcp PCP - General 06/08/22 07/19/22 Guadalupe Mcbride MD PCP - General Family Medicine 07/20/22 11/01/23 Sena Dominguez PA [address] [place] [address] [place] [address] PCP - BRADY Physician Flasher Adjuster 11/02/23 Levy [place] MD [address] [place] [address] [place] [address] PCP - General Family Medicine 12/20/23 documented as of this encounter
--- OUTSIDE RECORDS SUMMARY | 2025-07-31 12:06 | XMS_ITS | Encounter Summary ---
Author Organization [facility] work ([facility]) Address [address] [place] [address] Care Team Providers Care Deputy Grand Jury Name Role Phone Meme Steel MD Primary Care Provider [phone] Pcp, Pcp Primary Care Provider Unavailabl Guadalupe Bardales MD Primary Care Provider [phone] Sena Dominguez Unavailable [phone] Levy [place] MD Primary Care Provider Unavailab le Source Comments The information that you have received may contain highly confidential and/or federally protected health information. This information has been disclosed to you from records protected by [facility]. The law prohibits you from [...] contact the sender immediately.[facility] ([facility]) Encounter Details Date Type Department Care Team (Late st Contact Info) Description 05/12/2005 Historical Note [facility] Face-Me System Devyn Vásquez MD [address] [place] [address] [phone] Social History Tobacco Use Types Packs/Day Years [...] CARRILLO - [facility] at [facility] [address] [facility] [address] [place] [phone] Brenda Clay MD [address] [facility] [address] [place] [address] 04/15/2026 10:00 AM EDT Office Visit [facility]HA [facility] at [facility] + [facility] [address] [facility] [address] [place] [address] Sena Dominguez PA [address] [facility] [place] [address] documented as of this encounter Visit Diagnoses Not on filedocumented in this encounter Care Teams Deputy Grand Jury Relationship Specialty Start Date End Date Meme Steel MD [address] [place] [address] 105 [place] [address] PCP - General Pediatrics 06/05/18 04/25/22 No Pcp, Pcp PCP - General 06/08/22 07/19/22 Guadalupe Mcbride MD PCP - General Family Medicine 07/20/22 11/01/23 Sena Dominguez PA [address] [place] [address] [place] [address] PCP - BRADY Physician Facilities Custodian 11/02/23 Levy [place] MD [address] [place] [address] [place] [address] PCP - General Family Medicine 12/20/23 documented as of this encounter
--- OUTSIDE RECORDS SUMMARY | 2025-07-31 12:06 | XMS_ITS | Encounter Summary ---
Author Organization [facility] work ([facility]) Address [address] [place] [address] Care Team Providers Care Heel Layer Name Role Phone Mmee Steel MD Primary Care Provider [phone] No Pcp, Pcp Primary Care Provider Unavailabl Guadalupe Bardales MD Primary Care Provider [phone] Sena Dominguez Unavailable [phone] Levy [place] MD Primary Care Provider Unavailab le Source Comments The information that you have received may contain highly confidential and/or federally protected health information. This information has been disclosed to you from records protected by [facility]. The law prohibits you from [...] please contact the sender immediately.[facility] ([facility]) Encounter Details Date Type Department Care Team (Late st Contact Info) Description 11/10/2005 Historical Note [facility] Ingeniatrics System Devyn Vásquez MD [address] [place] [address] [phone] Social History Tobacco Use Types Packs/Day Years [...] LEATHA CARRILLO - [facility] [address] [facility] [address] [place] [phone] Brenda Clay MD [address] [facility] [address] [place] [address] 04/15/2026 10:00 AM EDT Office Visit LE[facility]HA [facility] at [facility] + [facility] [address] [facility] [address] [place] [address] Sena Dominguez PA [address] [facility] [place] [address] documented as of this encounter Visit Diagnoses Not on filedocumented in this encounter Care Teams Heel Layer Relationship Specialty Start Date End Date Meme Steel MD [address] [place] [address] 105 [place] [address] PCP - General Pediatrics 06/05/18 04/25/22 No Pcp, Pcp PCP - General 06/08/22 07/19/22 Guadalupe Mcbride MD PCP - General Family Medicine 07/20/22 11/01/23 Sena Dominguez PA [address] [place] [address] [place] [address] PCP - BRADY Physician Physician Primary Care Sports Medicine 11/02/23 Levy [place] MD [address] [place] [address] [place] [address] PCP - General Family Medicine 12/20/23 documented as of this encounter
--- OUTSIDE RECORDS SUMMARY | 2025-07-31 12:06 | XMS_ITS | Encounter Summary ---
Author Organization [facility] work ([facility]) Address [address] [place] [address] Care Team Providers Care User Experience Architect Name Role Phone Meme Steel MD Primary Care Provider [phone] No Pcp, Pcp Primary Care Provider Unavailabl Guadalupe Bardales MD Primary Care Provider [phone] Sena Dominguez Unavailable [phone] Levy [place] MD Primary Care Provider Unavailab le Source Comments The information that you have received may contain highly confidential and/or federally protected health information. This information has been disclosed to you from records protected by [facility]. The law prohibits [...] the sender immediately.[facility] ([facility]) Encounter Details Date Type Department Care Team (Late st Contact Info) Description 08/17/2010 Historical Note [facility] IKOR METERING System Devyn Vásquez MD [address] [place] [address] [phone] Social History Tobacco Use Types Packs/Day Years [...] - [facility] [address] [facility] [address] [place] [phone] Brenda Clay MD [address] [facility] [address] [place] [address] 04/15/2026 10:00 AM EDT Office Visit LEATHA Primary [facility] at [facility] + [facility] [address] [facility] [address] [place] [address] Sena Dominguez PA [address] [facility] [place] [address] documented as of this encounter Visit Diagnoses Not on filedocumented in this encounter Care Teams User Experience Architect Relationship Specialty Start Date End Date Meme Steel MD [address] [place] [address] 105 [place] [address] PCP - General Pediatrics 06/05/18 04/25/22 No Pcp, Pcp PCP - General 06/08/22 07/19/22 Guadalupe Mcbride MD PCP - General Family Medicine 07/20/22 11/01/23 Sena Dominguez PA [address] [place] [address] [place] [address] PCP - BRADY Physician Salesperson Fashion Accessories 11/02/23 Levy [place] MD [address] [place] [address] [place] [address] PCP - General Family Medicine 12/20/23 documented as of this encounter
--- OUTSIDE RECORDS SUMMARY | 2025-07-31 12:06 | XMS_ITS | Encounter Summary ---
Author Organization [facility] work ([facility]) Address [address] [place] [address] Care Team Providers Care Steel Grinder Name Role Phone Meme Steel MD Primary Care Provider [phone] No Pcp, Pcp Primary Care Provider Unavailabl Guadalupe Bardales MD Primary Care Provider [phone] Sena Dominguez Unavailable [phone] Levy [place] MD Primary Care Provider Unavailab le Source Comments The information that you have received may contain highly confidential and/or federally protected health information. This information has been disclosed to you from records protected by [facility]. The law prohibits you from [...] please contact the sender immediately.[facility] ([facility]) Encounter Details Date Type Department Care Team (Late st Contact Info) Description 06/30/2005 Historical Note [facility] IMGuest System Devyn Vásquez MD [address] [place] [address] [phone] Social History Tobacco Use Types Packs/Day Years [...] - [facility] [address] [facility] [address] [place] [phone] Brenda Clay MD [address] [facility] [address] [place] [address] 04/15/2026 10:00 AM EDT Office Visit LEATHA Primary [facility] at [facility] + [facility] [address] [facility] [address] [place] [address] Sena Dominguez PA [address] [facility] [place] [address] documented as of this encounter Visit Diagnoses Not on filedocumented in this encounter Care Teams Steel Grinder Relationship Specialty Start Date End Date Meme Steel MD [address] [place] [address] 105 [place] [address] PCP - General Pediatrics 06/05/18 04/25/22 No Pcp, Pcp PCP - General 06/08/22 07/19/22 Guadalupe Mcbride MD PCP - General Family Medicine 07/20/22 11/01/23 Sena Dominguez PA [address] [place] [address] [place] [address] PCP - [place] Physician Baseboard Heating Installer 11/02/23 Levy [place] MD [address] [place] [address] [place] [address] PCP - General Family Medicine 12/20/23 documented as of this encounter
--- OUTSIDE RECORDS SUMMARY | 2025-07-31 12:06 | XMS_ITS | Encounter Summary ---
Author Organization [facility] work ([facility]) Address [address] [facility] [address] [place] [address] Care Team Providers Care Dock Manager Name Role Phone Meme Steel MD Primary Care Provider [phone] Pcp, Pcp Primary Care Provider Unavailabl Guadalupe Bardales MD Primary Care Provider Sena Dominguez Unavailable [phone] Levy Barry MD Primary Care Provider Unavailab le Source Comments The information that you have received may contain highly confidential and/or federally protected health information. This information has been disclosed to you from records protected by [facility]. The law prohibits [...] please contact the sender immediately.[facility] ([facility]) Encounter Details Date Type Department Care Team (Late st Contact Info) Description 05/18/2011 Historical Note SVMG [employer] System Devyn Vásquez MD [address] [place] [address] [phone] Social History Tobacco Use Types Packs/Day Years [...] Office Visit LEATHA CARRILLO - [facility] [address] [facility] [address] [place] [phone] Brenda Clay MD [address] [facility] [address] [place] [phone] 04/15/2026 10:00 AM EDT Office Visit [facility] [address] [facility] [address] [place] [address] Sena Dominguez PA [address] [facility] [place] [address] documented as of this encounter Visit Diagnoses Not on filedocumented in this encounter Care Teams Dock Manager Relationship Specialty Start Date End Date Meme Steel MD [address] [place] [address] 105 [place] [address] PCP - General Pediatrics 06/05/18 04/25/22 No Pcp, Pcp PCP - General 06/08/22 07/19/22 Guadalupe Mcbride MD PCP - General Family Medicine 07/20/22 11/01/23 Sena Dominguez PA [address] [place] [address] [place] [address] PCP - BRADY Physician Police Manager 11/02/23 Levy Barry MD [address] [place] [address] [place] [address] PCP - General Family Medicine 12/20/23 documented as of this encounter
--- OUTSIDE RECORDS SUMMARY | 2025-07-31 12:06 | XMS_ITS | Encounter Summary ---
Author Organization [facility] work ([facility]) Address [address] [place] [address] Care Team Providers Care Bender Machine Name Role Phone Meme Steel MD Primary Care Provider [phone] Pcp, Pcp Primary Care Provider Unavailabl Guadalupe Bardales MD Primary Care Provider [phone] Sena Dominguez Unavailable [phone] Levy Barry MD Primary Care Provider Unavailab le Source Comments The information that you have received may contain highly confidential and/or federally protected health information. This information has been disclosed to you from records protected by [facility]. The law prohibits you [...] contact the sender immediately.[facility] ([facility]) Encounter Details Date Type Department Care Team (Late st Contact Info) Description 06/14/2011 Historical Note [facility]G Ping4 System Devyn Vásquez MD [address] [place] [address] [phone] Social History Tobacco Use Types Packs/Day Years [...] LEATHA CARRILLO - [facility] [address] [facility] [address] [place] [phone] Brenda Clay MD [address] [facility] [address] [place] [phone] 04/15/2026 10:00 AM EDT Office Visit [facility]HA [facility] at [facility] [address] [facility] [address] [place] [address] Sena Dominguez PA [address] [facility] [place] [address] documented as of this encounter Visit Diagnoses Not on filedocumented in this encounter Care Teams Bender Machine Relationship Specialty Start Date End Date Meme Steel MD [address] [place] [address] 105 [place] [address] PCP - General Pediatrics 06/05/18 04/25/22 No Pcp, Pcp PCP - General 06/08/22 07/19/22 Guadalupe Mcbride MD PCP - General Family Medicine 07/20/22 11/01/23 Sena Dominguez PA [address] [place] [address] [place] [address] PCP - BRADY Physician Transportation Consultant 11/02/23 Levy Barry MD [address] [place] [address] [place] [address] PCP - General Family Medicine 12/20/23 documented as of this encounter
--- OUTSIDE RECORDS SUMMARY | 2025-07-31 12:06 | XMS_ITS | Encounter Summary ---
Author Organization [facility] work ([facility]) Address [address] [place] [address] Care Team Providers Care Inspector Rubber Stamp Die Name Role Phone Meme Steel MD Primary Care Provider [phone] Pcp, Pcp Primary Care Provider Unavailabl Guadalupe Bardales MD Primary Care Provider [phone] Sena Dominguez Unavailable [phone] Levy Barry MD Primary Care Provider Unavailab le Source Comments The information that you have received may contain highly confidential and/or federally protected health information. This information has been disclosed to you from records protected by [employer] [facility]. The law prohibits you from [...] contact the sender immediately.[facility] ([facility]) Encounter Details Date Type Department Care Team (Late st Contact Info) Description 06/02/2005 Historical Note SVMG [employer] System Devyn Vásquez MD [address] [place] [address] [phone] Social History Tobacco Use Types Packs/Day Years [...] LEATHA CARRILLO - [facility] [address] [facility] [address] [place] [phone] Brenda Clay MD [address] [facility] [address] [place] [phone] 04/15/2026 10:00 AM EDT Office Visit [facility]HA [facility] at [facility] + [facility] [address] [facility] [address] [place] [address] Sena Dominguez PA [address] [facility] [place] [address] documented as of this encounter Visit Diagnoses Not on filedocumented in this encounter Care Teams Inspector Rubber Stamp Die Relationship Specialty Start Date End Date Meme Steel MD [address] [place] [address] 105 [place] [address] PCP - General Pediatrics 06/05/18 04/25/22 No Pcp, Pcp PCP - General 06/08/22 07/19/22 Guadalupe Mcbride MD PCP - General Family Medicine 07/20/22 11/01/23 Sena Dominguez PA [address] [place] [address] [place] [address] PCP - BRADY Physician Electrophonic Engineer 11/02/23 Levy Barry MD [address] [place] [address] [place] [address] PCP - General Family Medicine 12/20/23 documented as of this encounter
--- OUTSIDE RECORDS SUMMARY | 2025-07-31 12:06 | XMS_ITS | Encounter Summary ---
Author Organization [facility] work ([facility]) Address [address] [place] [address] Care Team Providers Care Individualized Education Plan Aide Name Role Phone Meme Steel MD Primary Care Provider [phone] Pcp, Pcp Primary Care Provider Unavailabl Guadalupe Bardales MD Primary Care Provider [phone] Sena Dominguez Unavailable [phone] Levy Barry MD Primary Care Provider Unavailab le Source Comments The information that you have received may contain highly confidential and/or federally protected health information. This information has been disclosed to you from records protected by [facility]. The law prohibits [...] please contact the sender immediately.[facility] ([facility]) Encounter Details Date Type Department Care Team (Late st Contact Info) Description 08/13/2009 Historical Note [facility] [employer] System Devyn Vásquez MD [address] [place] [address] [phone] Social History Tobacco Use Types Packs/Day Years [...] LEATHA CARRILLO - [facility] [address] [facility] [address] [place] [phone] Brenda Clay MD [address] [facility] [address] [place] [address] 04/15/2026 10:00 AM EDT Office Visit [facility]HA [facility] [address] [facility] [address] [place] [address] Sena Dominguez PA [address] [facility] [place] [address] documented as of this encounter Visit Diagnoses Not on filedocumented in this encounter Care Teams Individualized Education Plan Aide Relationship Specialty Start Date End Date Meme Steel MD [address] [place] [address] 105 [place] [address] PCP - General Pediatrics 06/05/18 04/25/22 No Pcp, Pcp PCP - General 06/08/22 07/19/22 Guadalupe Mcbride MD PCP - General Family Medicine 07/20/22 11/01/23 Sena Dominguez PA [address] [place] [address] [place] [address] PCP - BRADY Physician Enterprise Sales Person 11/02/23 Levy Barry MD [address] [place] [address] [place] [address] PCP - General Family Medicine 12/20/23 documented as of this encounter
--- OUTSIDE RECORDS SUMMARY | 2025-07-31 12:06 | XMS_ITS | Encounter Summary ---
Author Organization [facility] work ([facility]) Address [address] [place] [address] Care Team Providers Care Firefighting Equipment Specialist Name Role Phone Meme Steel MD Primary Care Provider [phone] Pcp, Pcp Primary Care Provider Unavailabl Guadalupe Bardales MD Primary Care Provider [phone] Sena Dominguez Unavailable [phone] Levy Barry MD Primary Care Provider Unavailab le Source Comments The information that you have received may contain highly confidential and/or federally protected health information. This information has been disclosed to you from records protected by [facility]. The law prohibits you [...] contact the sender immediately.[facility] ([facility]) Encounter Details Date Type Department Care Team (Late st Contact Info) Description 05/31/2005 Historical Note SVMG Cover[employer] System Devyn Vásquez MD [address] [place] [address] [phone] Social History Tobacco Use Types Packs/Day Years [...] - [facility] [address] [facility] [address] [place] [phone] Brenda Clay MD [address] [facility] [address] [place] [phone] 04/15/2026 10:00 AM EDT Office Visit LEATHA [facility] at [facility] + [facility] [address] [facility] [address] [place] [address] Sena Dominguez PA [address] [facility] [place] [address] documented as of this encounter Visit Diagnoses Not on filedocumented in this encounter Care Teams Firefighting Equipment Specialist Relationship Specialty Start Date End Date Meme Steel MD [address] [place] [address] 105 [place] [address] PCP - General Pediatrics 06/05/18 04/25/22 No Pcp, Pcp PCP - General 06/08/22 07/19/22 Guadalupe Mcbride MD PCP - General Family Medicine 07/20/22 11/01/23 Sena Dominguez PA [address] [place] [address] [place] [address] PCP - BRADY Physician Structural Worker 11/02/23 Levy Barry MD [address] [place] [address] [place] [address] PCP - General Family Medicine 12/20/23 documented as of this encounter
--- OUTSIDE RECORDS SUMMARY | 2025-07-31 12:06 | XMS_ITS | Encounter Summary ---
Author Organization [facility] work ([facility]) Address [address] [place] [address] Care Team Providers Care Ruby Developer Name Role Phone Meme Steel MD Primary Care Provider [phone] Pcp, Pcp Primary Care Provider Unavailabl Guadalupe Bardales MD Primary Care Provider [phone] Sena Dominguez Unavailable [phone] Levy Barry MD Primary Care Provider Unavailab le Source Comments The information that you have received may contain highly confidential and/or federally protected health information. This information has been disclosed to you from records protected by [facility]. The law prohibits [...] contact the sender immediately.[facility] ([facility]) Encounter Details Date Type Department Care Team (Late st Contact Info) Description 08/13/2009 Historical Note SVMG [employer] System Devyn Vásquez MD [address] [place] [address] [phone] Social History Tobacco Use Types Packs/Day Years [...] CARRILLO - [facility] [address] [facility] [address] [place] [phone] Brenda Clay MD [address] [facility] [address] [place] [phone] 04/15/2026 10:00 AM EDT Office Visit LEATHA [facility] at [facility] [address] [facility] [address] [place] [address] Sena Dominguez PA [address] [facility] [place] [address] documented as of this encounter Visit Diagnoses Not on filedocumented in this encounter Care Teams Ruby Developer Relationship Specialty Start Date End Date Meme Steel MD [address] [place] [address] [place] [address] PCP - General Pediatrics 06/05/18 04/25/22 No Pcp, Pcp PCP - General 06/08/22 07/19/22 Guadalupe Mcbride MD PCP - General Family Medicine 07/20/22 11/01/23 Sena Dominguez PA [address] [place] [address] [place] [address] PCP - BRADY Physician Rollway Man 11/02/23 Levy Barry MD [address] [place] [address] [place] [address] PCP - General Family Medicine 12/20/23 documented as of this encounter
--- OUTSIDE RECORDS SUMMARY | 2025-07-31 12:06 | XMS_ITS | Encounter Summary ---
Author Organization [facility] work ([facility]) Address [address] [place] [address] Care Team Providers Care Antique Collector Name Role Phone Meme Steel MD Primary Care Provider No Pcp, Pcp Primary Care Provider Unavailabl Guadalupe Bardales MD Primary Care Provider Sena Dominguez Unavailable [phone] Levy Barry MD Primary Care Provider Unavailab le Source Comments The information that you have received may contain highly confidential and/or federally protected health information. This information has been disclosed to you from records protected by [facility]. The law prohibits you from [...] please contact the sender immediately.[facility] ([facility]) Encounter Details Date Type Department Care Team (Late st Contact Info) Description 08/07/2009 Historical Note SVMG [employer] System Devyn Vásquez MD [address] [place] [address] [phone] Social History Tobacco Use Types Packs/Day Years [...] Visit LEATHA CARRILLO - [facility] [address] [facility] [address] [place] [phone] Brenda Clay MD [address] [facility] [address] [place] [address] 04/15/2026 10:00 AM EDT Office Visit LEATHA [facility] at [facility] [address] [facility] [address] [place] [address] Sena Dominguez PA [address] [facility] [place] [address] documented as of this encounter Visit Diagnoses Not on filedocumented in this encounter Care Teams Antique Collector Relationship Specialty Start Date End Date Meme Steel MD [address] [place] [address] 105 [place] [address] PCP - General Pediatrics 06/05/18 04/25/22 No Pcp, Pcp PCP - General 06/08/22 07/19/22 Guadalupe Mcbride MD PCP - General Family Medicine 07/20/22 11/01/23 Sena Dominguez PA [address] [place] [address] [place] [address] PCP - BRADY Physician Commission Sales Associate 11/02/23 Levy Barry MD [address] [place] [address] [place] [address] PCP - General Family Medicine 12/20/23 documented as of this encounter
--- OUTSIDE RECORDS SUMMARY | 2025-07-31 12:07 | XMS_ITS | Encounter Summary ---
Author Organization [facility] work ([facility]) Address [address] [place] [address] Care Team Providers Care Cdl Company Flatbed Driver Name Role Phone Meme Steel MD Primary Care Provider [phone] Pcp, Pcp Primary Care Provider Unavailabl Guadalupe Bardales MD Primary Care Provider [phone] Sena Dominguez Unavailable [phone] Levy Barry MD Primary Care Provider Unavailab le Source Comments The information that you have received may contain highly confidential and/or federally protected health information. This information has been disclosed to you from records protected by [facility]. The law prohibits you [...] please contact the sender immediately.[facility] ([facility]) Encounter Details Date Type Department Care Team (Late st Contact Info) Description 2004 Historical Note SVMG NetScaler System Devyn Vásquez MD [address] [place] [address] [phone] Social History Tobacco Use Types Packs/Day Years [...] Visit LEATHA CARRILLO - [facility] [address] [facility] [address] [place] [phone] Brenda Clay MD [address] [facility] [address] [place] [address] 04/15/2026 10:00 AM EDT Office Visit LEATHA [facility] at [facility] + [facility] [address] [facility] [address] [place] [address] Sena Dominguez PA [address] [facility] [place] [address] documented as of this encounter Visit Diagnoses Not on filedocumented in this encounter Care Teams Cdl Company Flatbed Driver Relationship Specialty Start Date End Date Meme Steel MD [address] [place] [address] 105 [place] [address] PCP - General Pediatrics 06/05/18 04/25/22 No Pcp, Pcp PCP - General 06/08/22 07/19/22 Guadalupe Mcbride MD PCP - General Family Medicine 07/20/22 11/01/23 Sena Dominguez PA [address] [place] [address] [place] [address] PCP - BRADY Physician Fur Dressing Supervisor 11/02/23 Levy Barry MD [address] [place] [address] [place] [address] PCP - General Family Medicine 12/20/23 documented as of this encounter
--- OUTSIDE RECORDS SUMMARY | 2025-07-31 12:07 | XMS_ITS | Encounter Summary ---
Author Organization [facility] work ([facility]) Address [address] [place] [address] Care Team Providers Care Manager Product Name Role Phone Meme Steel MD Primary Care Provider [phone] Pcp, Pcp Primary Care Provider Unavailabl Guadalupe Bardales MD Primary Care Provider [phone] Sena Dominguez Unavailable [phone] Levy Barry MD Primary Care Provider Unavailab le Source Comments The information that you have received may contain highly confidential and/or federally protected health information. This information has been disclosed to you from records protected by [facility] [facility]. The law prohibits you [...] error, please contact the sender immediately.[facility] ([facility]) Encounter Details Date Type Department Care Team (Late st Contact Info) Description 09/15/2015 Historical Note SVMG StreamSpec System Devyn Vásquez MD [address] [place] [address] [phone] Social History Tobacco Use Types Packs/Day Years [...] Visit LEATHA CARRILLO - [facility] [address] [facility] [address] [place] [phone] Brenda Clay MD [address] [facility] [address] [place] [address] 04/15/2026 10:00 AM EDT Office Visit LEATHA [facility] at [facility] [address] [facility] [address] [place] [address] Sena Dominguez PA [address] [facility] [place] [address] documented as of this encounter Visit Diagnoses Not on filedocumented in this encounter Care Teams Manager Product Relationship Specialty Start Date End Date Meme Steel MD [address] [place] [address] 105 [place] [address] PCP - General Pediatrics 06/05/18 04/25/22 No Pcp, Pcp PCP - General 06/08/22 07/19/22 Guadalupe Mcbride MD PCP - General Family Medicine 07/20/22 11/01/23 Sena Dominguez PA [address] [place] [address] [place] [address] PCP - BRADY Physician Costing Analyst 11/02/23 Levy Barry MD [address] [place] [address] [place] [address] PCP - General Family Medicine 12/20/23 documented as of this encounter
--- OUTSIDE RECORDS SUMMARY | 2025-07-31 12:07 | XMS_ITS | Encounter Summary ---
Author Organization [facility] work ([facility]) Address [address] [place] [address] Care Team Providers Care Armament Repairer Name Role Phone Meme Steel MD Primary Care Provider [phone] Pcp, Pcp Primary Care Provider Unavailabl Guadalupe Bardales MD Primary Care Provider [phone] Sena Dominguez Unavailable [phone] Levy Barry MD Primary Care Provider Unavailab le Source Comments The information that you have received may contain highly confidential and/or federally protected health information. This information has been disclosed to you from records protected by [facility]. The law prohibits you from [...] the sender immediately.[facility] ([facility]) Encounter Details Date Type Department Care Team (Late st Contact Info) Description 10/27/2016 Historical Note SVMG [employer] System Devyn Vásquez MD [address] [place] [address] [phone] Social History Tobacco Use Types Packs/Day Years [...] LEATHA CARRILLO - [facility] [address] [facility] [address] [place] [phone] Brenda Clay MD [address] [facility] [address] [place] [address] 04/15/2026 10:00 AM EDT Office Visit LEATHA [facility] at [facility] [address] [facility] [address] [place] [address] Sena Dominguez PA [address] [facility] [place] [address] documented as of this encounter Visit Diagnoses Not on filedocumented in this encounter Care Teams Armament Repairer Relationship Specialty Start Date End Date Meme Steel MD [address] [place] [address] 105 [place] [address] PCP - General Pediatrics 06/05/18 04/25/22 No Pcp, Pcp PCP - General 06/08/22 07/19/22 Guadalupe Mcbride MD PCP - General Family Medicine 07/20/22 11/01/23 Sena Dominguez PA [address] [place] [address] [place] [address] PCP - BRADY Physician Self Defense Instructor 11/02/23 Levy Barry MD [address] [place] [address] [place] [address] PCP - General Family Medicine 12/20/23 documented as of this encounter
--- OUTSIDE RECORDS SUMMARY | 2025-07-31 12:07 | XMS_ITS | Encounter Summary ---
Author Organization [facility] work ([facility]) Address [address] [place] [address] Care Team Providers Care Commercial Loan Closer Name Role Phone Meme Steel MD Primary Care Provider [phone] Pcp, Pcp Primary Care Provider Unavailabl Guadalupe Bardales MD Primary Care Provider [phone] Sena Dominguez Unavailable [phone] Levy Barry MD Primary Care Provider Unavailab le Source Comments The information that you have received may contain highly confidential and/or federally protected health information. This information has been disclosed to you from records protected by [facility]. The law prohibits you from [...] please contact the sender immediately.[facility] ([facility]) Encounter Details Date Type Department Care Team (Late st Contact Info) Description 10/23/2009 Historical Note [facility] Transmit System Devyn Vásquez MD [address] [place] [address] [id number] Social History Tobacco Use Types Packs/Day Years [...] Visit LEATHA CARRILLO - [facility] [address] [place] [phone] Brenda Clay MD [address] [facility] [address] [place] [address] 04/15/2026 10:00 AM EDT Office Visit [facility] [address] [facility] [address] [place] [address] Sena Dominguez PA [address] [facility] [place] [address] documented as of this encounter Visit Diagnoses Not on filedocumented in this encounter Care Teams Commercial Loan Closer Relationship Specialty Start Date End Date Meme Steel MD [address] [place] [address] [place] [address] PCP - General Pediatrics 06/05/18 04/25/22 No Pcp, Pcp PCP - General 06/08/22 07/19/22 Guadalupe Mcbride MD PCP - General Family Medicine 07/20/22 11/01/23 Sena Dominguez PA [address] [place] [address] [place] [address] PCP - BRADY Physician Corporate Communications Manager 11/02/23 Levy Barry MD [address] [place] [address] [place] [address] PCP - General Family Medicine 12/20/23 documented as of this encounter
--- OUTSIDE RECORDS SUMMARY | 2025-07-31 12:07 | XMS_ITS | Encounter Summary ---
Author Organization [facility] work ([facility]) Address [address] [place] [address] Care Team Providers Care Election Clerk Name Role Phone Meme Steel MD Primary Care Provider [phone] Pcp, Pcp Primary Care Provider Unavailabl Guadalupe Bardales MD Primary Care Provider [phone] Sena Dominguez Unavailable [phone] Levy Barry MD Primary Care Provider Unavailab le Source Comments The information that you have received may contain highly confidential and/or federally protected health information. This information has been disclosed to you from records protected by [facility]. The law prohibits you from [...] please contact the sender immediately.[facility] ([facility]) Encounter Details Date Type Department Care Team (Late st Contact Info) Description 10/27/2016 Historical Note [facility] AngioScore System Devyn Vásquez MD [address] [place] [address] [phone] Social History Tobacco Use Types Packs/Day Years [...] CARRILLO - [facility] [address] [facility] [address] [place] [phone] Brenda Clay MD [address] [facility] [address] [place] [address] 04/15/2026 10:00 AM EDT Office Visit [facility] at [facility] [address] [facility] [address] [place] [address] Sena Dominguez PA [address] [facility] [place] [address] documented as of this encounter Visit Diagnoses Not on filedocumented in this encounter Care Teams Election Clerk Relationship Specialty Start Date End Date Meme Steel MD [address] [place] [address] 105 [place] [address] PCP - General Pediatrics 06/05/18 04/25/22 No Pcp, Pcp PCP - General 06/08/22 07/19/22 Guadalupe Mcbride MD PCP - General Family Medicine 07/20/22 11/01/23 Sena Dominguez PA [address] [place] [address] [place] [address] PCP - BRADY Physician Mule Packer 11/02/23 Levy Barry MD [address] [place] [address] [place] [address] PCP - General Family Medicine 12/20/23 documented as of this encounter
--- OUTSIDE RECORDS SUMMARY | 2025-07-31 12:07 | XMS_ITS ---
Continuity of Care Document (CCD) Created on: July 31, 2025 Kimber Nath External Reference #: [id number] : 2005 Sex: Female Author Organization [facility]. Address [address] [place] [address] Phone [phone] Care Team Providers Care Commercial Lines Account Assistant Name Role Phone Guadalupe Mcbride MD Care Team Information Receiv er Unavailable ANA ROSA RAMOS M.D. Care Team Information Receiv er Unavailable Guadalupe Mcbride MD Primary Care Physician Unava ilable Allergies and adverse reactions Description No Known Drug Allergies Medications Active Medications SIG Qnty Indications Ordering Provider Date Xkbdxbsbr71zvw Tablets 1 by mouth every day 90tabs Ana Rosa Ramos M.D. 05/28/2024 OCP Unknown Barb Qmmplph72go Tablets Unknown Propranolol HRD86ki Tablets Unknown Dtiebvzfq6rw Tablets Unknown Vitamin D-325mcg (1000 Ut) Capsules Unknown Fluoxetine VDX12mq Capsules Unknown History Medications Wegovy0.25mg/0.5ML Solution Auto-Inject inject 0.25 mg weekly x 4 weeks 2ml Ana Rosa Ramos M.D. 03/25/2024 - 06/26/2024 Sertraline SGP257qd Tablets Un known - 06/26/2024 Results Test Acquired Date Facility Test Result H/L Range Note TSH 07/05/2025 [facility] (Use [facility] Other [facility]) [address] [facility] [place] [address] [phone] TSH 1.87 mIU/L Normal 1 T4, Free 07/05/2025 [facility] (Use [facility] Other [facility]) [address] [place] [address] T4, Free 1.3 ng/dL Normal 0.8-1.8 Vitamin D,25-Oh,Total,Ia 07/05/2025 [facility] (Use [facility] Other Sites) [address] [place] [address] Vitamin D,25-Oh,Total,Ia 29 ng/mL Low 30-100 2 Enhanced PDF Report [id number] 07/05/2025 [facility] (Use [facility] Other [facility]) [address] [place] [address] [phone] Enhanced PDF Report [id number] PDF IMAGE OFF C-Peptide 04/03/2024 [facility] (Use [facility] Other Sites) [address] [place] [address] [phone] C-Peptide 1.72 ng/mL Normal 0.80-3.8 5 3 Insulin 04/03/2024 [facility] (Use [facility] Other Sites) [address] [address] Insulin 10.9 uIU/mL Normal 4 Basic Metabolic Panel 04/03/2024 [facility] (Use [facility] Other Sites) [address] [address] Glucose 82 mg/dL Normal 65-99 5 Urea [...] [facility] Other Sites) [address] [place] [id number] TSH 4.14 mIU/L Normal 7 T4, Free 04/03/2024 [facility] (Use [facility] Other Sites) [address] [place] [address] T4, Free 1.1 ng/dL Normal 0.8-1.4 Thyroid Peroxidase And Thyroglobulin Abs 04/03/2024 [facility] (Use [facility] Other Sites) [address] [place] [address] [phone] Thyroglobulin Antibodies 1 IU/mL Normal < or = 1 Thyroid Peroxidase Antibodies 61 IU/mL High <9 Tsi (Thyroid Stimulating Immunoglobulin) 04/03/2024 [facility] (Use [facility] Other Sites) [address] [place] [id number] Tsi (Thyroid Stimulating Immunoglobulin) <89 %baseline <140 8 PTH Intact And Calcium 04/03/2024 [facility] (Use [facility] Other Sites) [address] [place] [address] Parathyroid Hormone, Intact 68 pg/mL Normal 16-77 9 Calcium 9.1 mg/dL Normal 8.9-10.4 Vitamin D,25-Oh,Total,Ia 04/03/2024 [facility] (Use [facility] Other Sites) [address] [place] [address] Vitamin D,25-Oh,Total,Ia 39 ng/mL Normal 30-100 10 Albumin 04/03/2024 [facility] (Use [facility] Other Sites) [address] [place] [id number] Albumin 4.0 g/dL Normal 3.6-5.1 Clinical PDF Report [id number] 04/03/2024 [facility] (Use [facility] Other Sites) [address] [id number] Clinical PDF Report [id number] PDF IMAGE OFF Enhanced PDF Report [id number] 04/03/2024 [facility] (Use [facility] For Other Sites) [address] [place] [address] [phone] Enhanced PDF Report [id number] PDF IMAGE OFF 1 Reference Range > [...] D2 and D3 fractions is required, the [employer] ControlsureD(TM) 25-OH VIT D, (D2,D3), LC/MS/MS is recommended: order code 34500 (patients >2yrs). See Note 1 Note 1 For additional information, please refer to http://education.[employer]/faq/IFH613 (This link is being provided for informational/ educational purposes only.) 3 FASTING:YES FASTING: YES 4 Reference Range < or = 18.4 Risk: Optimal < or = 18.4 Moderate NA High >18.4 Adult cardiovascular event risk category cut points (optimal, moderate, high) are based on Insulin Reference Interval studies performed at [facility] in 2021. 5 Fasting reference in terval [...] of this assay have been determined by [facility], [place], [place]. The modifications have not been cleared [...] D, (D2,D3), LC/MS/MS is recommended: order code 25893 (patients >2yrs). 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
--- OUTSIDE RECORDS SUMMARY | 2025-07-31 12:07 | XMS_ITS | Encounter Summary ---
Author Organization [facility] work ([facility]) Address [address] [place] [address] Care Team Providers Care Manager Community Name Role Phone Meme Steel MD Primary Care Provider [phone] No Pcp, Pcp Primary Care Provider Unavailabl Guadalupe Bardales MD Primary Care Provider [phone] Sena Dominguez Unavailable [phone] Levy Barry MD Primary Care Provider Unavailab le Source Comments The information that you have received may contain highly confidential and/or federally protected health information. This information has been disclosed to you from records protected by [facility]. The law prohibits you [...] Contact Info) Description 2004 Historical Note [facility] Moodswing System Devyn Vásquez MD [address] [place] [address] [phone] Social History Tobacco Use Types Packs/Day Years [...] LEATHA CARRILLO - [facility] [address] [facility] [address] [place] [phone] Brenda Clay MD [address] [facility] [address] [place] [address] 04/15/2026 10:00 AM EDT Office Visit [facility] at [facility] + [facility] [address] [facility] [address] [place] [address] Sena Dominguez PA [address] [facility] [place] [address] documented as of this encounter Visit Diagnoses Not on filedocumented in this encounter Care Teams Manager Community Relationship Specialty Start Date End Date Meme Steel MD [address] [place] [address] 105 [place] [address] PCP - General Pediatrics 06/05/18 04/25/22 No Pcp, Pcp PCP - General 06/08/22 07/19/22 Guadalupe Mcbride MD PCP - General Family Medicine 07/20/22 11/01/23 Sena Dominguez PA [address] [place] [address] [place] [address] PCP - BRADY Physician Clay Maker 11/02/23 Levy Barry MD [address] [place] [address] [place] [address] PCP - General Family Medicine 12/20/23 documented as of this encounter
--- OUTSIDE RECORDS SUMMARY | 2025-07-31 12:07 | XMS_ITS | Encounter Summary ---
Author Organization [facility] work ([facility]) Address [address] [place] [address] Care Team Providers Care Maint Mechanic Name Role Phone Meme Steel MD Primary Care Provider [phone] Pcp, Pcp Primary Care Provider Unavailabl Guadalupe Bardales MD Primary Care Provider [phone] Sena Dominguez Unavailable [phone] Levy Barry MD Primary Care Provider Unavailab le Source Comments The information that you have received may contain highly confidential and/or federally protected health information. This information has been disclosed to you from records protected by [facility]. The law prohibits you from [...] sender immediately.[facility] ([facility]) Encounter Details Date Type Department Care Team (Late st Contact Info) Description 10/27/2016 Historical Note [facility] Websense System Devyn Vásquez MD [address] [place] [address] [phone] Social History Tobacco Use Types Packs/Day Years [...] Visit LEATHA CARRILLO - [facility] [address] [facility] [address] [place] [phone] Brenda Clay MD [address] [facility] [address] [place] [address] 04/15/2026 10:00 AM EDT Office Visit [facility] at [facility] [address] [facility] [address] [place] [address] Sena Dominguez PA [address] [facility] [place] [address] documented as of this encounter Visit Diagnoses Not on filedocumented in this encounter Care Teams Maint Mechanic Relationship Specialty Start Date End Date Meme Steel MD [address] [place] [address] 105 [place] [address] PCP - General Pediatrics 06/05/18 04/25/22 No Pcp, Pcp PCP - General 06/08/22 07/19/22 Guadalupe Mcbride MD PCP - General Family Medicine 07/20/22 11/01/23 Sena Dominguez PA [address] [place] [address] [place] [address] PCP - BRADY Physician Water Server 11/02/23 Levy Barry MD [address] [place] [address] [place] [address] PCP - General Family Medicine 12/20/23 documented as of this encounter
--- OUTSIDE RECORDS SUMMARY | 2025-07-31 12:07 | XMS_ITS | Encounter Summary ---
Author Organization [facility] work ([facility]) Address [address] [place] [address] Care Team Providers Care Footwear Sales Representative Name Role Phone Meme Steel MD Primary Care Provider [phone] No Pcp, Pcp Primary Care Provider Unavailabl Guadalupe Bardales MD Primary Care Provider Sena Dominguez Unavailable [phone] Levy Barry MD Primary Care Provider Unavailab le Source Comments The information that you have received may contain highly confidential and/or federally protected health information. This information has been disclosed to you from records protected by [facility]. The law prohibits you [...] the sender immediately.[facility] ([facility]) Encounter Details Date Type Department Care Team (Late st Contact Info) Description 10/05/2015 Historical Note [facility] Kudan System Devyn Vásquez MD [address] [place] [phone] Social History Tobacco Use Types Packs/Day Years [...] LEATHA CARRILLO - [facility] [address] [facility] [address] [place] [phone] Brenda Clay MD [address] [facility] [address] [place] [address] 04/15/2026 10:00 AM EDT Office Visit [facility] at [facility] + [facility] [address] [facility] [address] [place] [address] Sena Dominguez PA [address] [facility] [place] [address] documented as of this encounter Visit Diagnoses Not on filedocumented in this encounter Care Teams Footwear Sales Representative Relationship Specialty Start Date End Date Meme Steel MD [address] [place] [address] 105 [place] [address] PCP - General Pediatrics 06/05/18 04/25/22 No Pcp, Pcp PCP - General 06/08/22 07/19/22 Guadalupe Mcbride MD PCP - General Family Medicine 07/20/22 11/01/23 Sena Dominguez PA [address] [place] [address] [place] [address] PCP - BRADY Physician Web Ui Developer 11/02/23 Levy Barry MD [address] [place] [address] [place] [address] PCP - General Family Medicine 12/20/23 documented as of this encounter
--- OUTSIDE RECORDS SUMMARY | 2025-07-31 12:07 | XMS_ITS | Encounter Summary ---
Author Organization [facility] work ([facility]) Address [address] [place] [address] Care Team Providers Care Power Plant Superintendent Name Role Phone Meme Steel MD Primary Care Provider [phone] No Pcp, Pcp Primary Care Provider Unavailabl Guadalupe Bardales MD Primary Care Provider [phone] Sena Dominguez Unavailable [phone] Levy Barry MD Primary Care Provider Unavailab le Source Comments The information that you have received may contain highly confidential and/or federally protected health information. This information has been disclosed to you from records protected by [employer] [facility]. The law prohibits you [...] the sender immediately.[facility] ([facility]) Encounter Details Date Type Department Care Team (Late st Contact Info) Description 08/17/2008 Historical Note [facility] Wyzerr System Devyn Vásquez MD [address] [place] [address] [phone] Social History Tobacco Use Types Packs/Day Years [...] LEATHA CARRILLO - [facility] [address] [facility] [address] [place] [phone] Brenda Clay MD [address] [facility] [address] [place] [address] 04/15/2026 10:00 AM EDT Office Visit [facility] at [facility] + [facility] [address] [facility] [facility] [address] [place] [address] Sena Dominguez PA [address] [facility] [place] [address] documented as of this encounter Visit Diagnoses Not on filedocumented in this encounter Care Teams Power Plant Superintendent Relationship Specialty Start Date End Date Meme Steel MD [address] [place] [address] 105 [place] [address] PCP - General Pediatrics 06/05/18 04/25/22 No Pcp, Pcp PCP - General 06/08/22 07/19/22 Guadalupe Mcbride MD PCP - General Family Medicine 07/20/22 11/01/23 Sena Dominguez PA [address] [place] [address] [place] [address] PCP - BRADY Physician Boom Truck Driver 11/02/23 Levy Barry MD [address] [place] [address] [place] [address] PCP - General Family Medicine 12/20/23 documented as of this encounter
--- OUTSIDE RECORDS SUMMARY | 2025-07-31 12:07 | XMS_ITS | Encounter Summary ---
Author Organization [facility] work ([facility]) Address [address] [place] [address] Care Team Providers Care Application Engineer Name Role Phone Meme Steel MD Primary Care Provider [phone] No Pcp, Pcp Primary Care Provider Unavailabl Guadalupe Bardales MD Primary Care Provider [phone] Sena Dominguez Unavailable [phone] Levy Barry MD Primary Care Provider Unavailab le Source Comments The information that you have received may contain highly confidential and/or federally protected health information. This information has been disclosed to you from records protected by [facility]. The law prohibits you from [...] please contact the sender immediately.[facility] ([facility]) Encounter Details Date Type Department Care Team (Late st Contact Info) Description 08/30/2005 Historical Note [facility] Corcept [employer]rapeutics System Devyn Vásquez MD [address] [place] [address] [phone] Social History Tobacco Use Types Packs/Day Years [...] CARRILLO - [facility] [address] [facility] [address] [place] [phone] Brenda Clay MD [address] [facility] [address] [place] [address] 04/15/2026 10:00 AM EDT Office Visit [facility] at [facility] + [facility] [address] [facility] [address] [place] [address] Sena Dominguez PA [address] [facility] [place] [address] documented as of this encounter Visit Diagnoses Not on filedocumented in this encounter Care Teams Application Engineer Relationship Specialty Start Date End Date Meme Steel MD [address] [place] [address] 105 [place] [address] PCP - General Pediatrics 06/05/18 04/25/22 No Pcp, Pcp PCP - General 06/08/22 07/19/22 Guadalupe Mcbride MD PCP - General Family Medicine 07/20/22 11/01/23 Sena Dominguez PA [address] [place] [address] [place] [address] PCP - BRADY Physician [place]omb[place] Carver 11/02/23 Levy Barry MD [address] [place] [address] [place] [address] PCP - General Family Medicine 12/20/23 documented as of this encounter
--- OUTSIDE RECORDS SUMMARY | 2025-07-31 12:07 | XMS_ITS | Encounter Summary ---
Author Organization [facility] work ([facility]) Address [address] [place] [address] Care Team Providers Care Lab Aid Name Role Phone Meme Steel MD Primary Care Provider [phone] No Pcp, Pcp Primary Care Provider Unavailabl Guadalupe Bardales MD Primary Care Provider [phone] Sena Dominguez Unavailable [phone] Levy Barry MD Primary Care Provider Unavailab le Source Comments The information that you have received may contain highly confidential and/or federally protected health information. This information has been disclosed to you from records protected by [facility]. The law prohibits you [...] please contact the sender immediately.[facility] ([facility]) Encounter Details Date Type Department Care Team (Late st Contact Info) Description 09/15/2015 Historical Note [facility] [employer] System Devyn Vásquez MD [address] [place] [phone] Social History Tobacco Use Types Packs/Day Years [...] LEATHA CARRILLO - [facility] [address] [facility] [address] [place] [phone] Brenda Clay MD [address] [facility] [address] [place] [address] 04/15/2026 10:00 AM EDT Office Visit [facility] at [facility] + [facility] [address] [facility] [address] [place] [address] Sena Dominguez PA [address] [facility] [place] [address] documented as of this encounter Visit Diagnoses Not on filedocumented in this encounter Care Teams Lab Aid Relationship Specialty Start Date End Date Meme Steel MD [address] [place] [address] 105 [place] [address] PCP - General Pediatrics 06/05/18 04/25/22 No Pcp, Pcp PCP - General 06/08/22 07/19/22 Guadalupe Mcbride MD PCP - General Family Medicine 07/20/22 11/01/23 Sena Dominguez PA [address] [place] [address] [place] [address] PCP - BRADY Physician Palliative Care Specialist 11/02/23 Levy Barry MD [address] [place] [address] [place] [address] PCP - General Family Medicine 12/20/23 documented as of this encounter
--- OUTSIDE RECORDS SUMMARY | 2025-07-31 12:07 | XMS_ITS | Encounter Summary ---
Author Organization [facility] work ([facility]) Address [address] [place] [address] Care Team Providers Care Bee Robber Name Role Phone Meme Steel MD Primary Care Provider [phone] No Pcp, Pcp Primary Care Provider Unavailabl Guadalupe Bardales MD Primary Care Provider [phone] Sena Dominguez Unavailable [phone] Levy Barry MD Primary Care Provider Unavailab le Source Comments The information that you have received may contain highly confidential and/or federally protected health information. This information has been disclosed to you from records protected by [facility]. The law prohibits you [...] error, please contact the sender immediately.[facility] ([facility]) Encounter Details Date Type Department Care Team (Late st Contact Info) Description 10/27/2016 Historical Note [facility] [employer] System Devyn Vásquez MD [address] [place] [address] [phone] Social History Tobacco Use Types Packs/Day Years [...] LEATHA CARRILLO - [facility] [address] [facility] [address] [place] [phone] Brenda Clay MD [address] [facility] [address] [place] [address] 04/15/2026 10:00 AM EDT Office Visit [facility] + [facility] [address] [facility] [place] [address] Sena Dominguez PA [address] [facility] [facility] [place] [address] documented as of this encounter Visit Diagnoses Not on filedocumented in this encounter Care Teams Bee Robber Relationship Specialty Start Date End Date Meme Steel MD [address] [place] [address] [place] [address] PCP - General Pediatrics 06/05/18 04/25/22 No Pcp, Pcp PCP - General 06/08/22 07/19/22 Guadalupe Mcbride MD PCP - General Family Medicine 07/20/22 11/01/23 Sena Dominguez PA [address] [place] [address] [place] [address] PCP - BRADY Physician Platform Builder 11/02/23 Levy Barry MD [address] [place] [address] [place] [address] PCP - General Family Medicine 12/20/23 documented as of this encounter
--- OUTSIDE RECORDS SUMMARY | 2025-07-31 12:07 | XMS_ITS | Encounter Summary ---
Author Organization [facility] work ([facility]) Address [address] [place] [address] Care Team Providers Care Signal Helper Name Role Phone Meme Steel MD Primary Care Provider [phone] Pcp, Pcp Primary Care Provider Unavailabl Guadalupe Bardales MD Primary Care Provider [phone] Sena Dominguez Unavailable [phone] Levy Barry MD Primary Care Provider Unavailab le Source Comments The information that you have received may contain highly confidential and/or federally protected health information. This information has been disclosed to you from records protected by [facility]. The law prohibits you from making [...] error, please contact the sender immediately.[facility] ([facility]) Encounter Details Date Type Department Care Team (Late st Contact Info) Description 08/17/2010 Historical Note [facility] [employer] System Devyn Vásquez MD [address] [place] [address] [phone] Social History Tobacco Use Types Packs/Day Years [...] LEATHA CARRILLO - [facility] [address] [facility] [address] [place] [phone] Brenda Clay MD [address] [facility] [address] [place] [address] 04/15/2026 10:00 AM EDT Office Visit [facility] [address] [facility] [address] [place] [address] Sena Dominguez PA [address] [facility] [place] [address] documented as of this encounter Visit Diagnoses Not on filedocumented in this encounter Care Teams Signal Helper Relationship Specialty Start Date End Date Meme Steel MD [address] [place] [address] 105 [place] [address] PCP - General Pediatrics 06/05/18 04/25/22 No Pcp, Pcp PCP - General 06/08/22 07/19/22 Guadalupe Mcbride MD PCP - General Family Medicine 07/20/22 11/01/23 Sena Dominguez PA [address] [place] [address] [place] [address] PCP - BRADY Physician Fusing Machine Feeder 11/02/23 Levy Barry MD [address] [place] [address] [place] [address] PCP - General Family Medicine 12/20/23 documented as of this encounter
--- OUTSIDE RECORDS SUMMARY | 2025-07-31 12:07 | XMS_ITS | Encounter Summary ---
Author Organization [facility] work ([facility]) Address [address] [place] [address] Care Team Providers Care Marketing Services Coordinator Name Role Phone Meme Steel MD Primary Care Provider [phone] Pcp, Pcp Primary Care Provider Unavailabl Guadalupe Bardales MD Primary Care Provider [phone] Sena Dominguez Unavailable [phone] Levy Barry MD Primary Care Provider Unavailab le Source Comments The information that you have received may contain highly confidential and/or federally protected health information. This information has been disclosed to you from records protected by [facility]. The law prohibits you [...] contact the sender immediately.[facility] ([facility]) Encounter Details Date Type Department Care Team (Late st Contact Info) Description 05/28/2015 Historical Note [facility] [employer] System Devyn Vásquez MD [address] [place] [address] [phone] Social History Tobacco Use Types Packs/Day Years [...] CARRILLO - [facility] [address] [place] [phone] Brenda Clay MD [address] [facility] [address] [place] [address] 04/15/2026 10:00 AM EDT Office Visit [facility] + [facility] [address] [facility] [address] [place] [address] Sena Dominguez PA [address] [facility] [place] [address] documented as of this encounter Visit Diagnoses Not on filedocumented in this encounter Care Teams Marketing Services Coordinator Relationship Specialty Start Date End Date Meme Steel MD [address] [place] [address] 105 [place] [address] PCP - General Pediatrics 06/05/18 04/25/22 No Pcp, Pcp PCP - General 06/08/22 07/19/22 Guadalupe Mcbride MD PCP - General Family Medicine 07/20/22 11/01/23 Sena Dominguez PA [address] [place] [address] [place] [address] PCP - BRADY Physician Hot Metal Charger 11/02/23 Lvey Barry MD [address] [place] [address] [place] [address] PCP - General Family Medicine 12/20/23 documented as of this encounter
--- OUTSIDE RECORDS SUMMARY | 2025-07-31 12:07 | XMS_ITS | Encounter Summary ---
Author Organization [facility] work ([facility]) Address [address] [place] [address] Care Team Providers Care Welt Wheeler Name Role Phone Meme Steel MD Primary Care Provider [phone] Pcp, Pcp Primary Care Provider Unavailabl Guadalupe Bardales MD Primary Care Provider [phone] Sena Dominguez Unavailable [phone] Levy Barry MD Primary Care Provider Unavailab le Source Comments The information that you have received may contain highly confidential and/or federally protected health information. This information has been disclosed to you from records protected by [facility]. The law prohibits you [...] contact the sender immediately.[facility] ([facility]) Encounter Details Date Type Department Care Team (Late st Contact Info) Description 04/08/2009 Historical Note [facility] [employer] System Devyn Vásquez MD [address] [place] [address] [phone] Social History Tobacco Use Types Packs/Day Years [...] CARRILLO - [facility] [address] [facility] [address] [place] [phone] Brenda Clay MD [address] [facility] [address] [place] [phone] 04/15/2026 10:00 AM EDT Office Visit [facility] [address] [facility] [address] [place] [address] Sena Dominguez PA [address] [facility] [place] [address] documented as of this encounter Visit Diagnoses Not on filedocumented in this encounter Care Teams Welt Wheeler Relationship Specialty Start Date End Date Meme Steel MD [address] [place] [address] 105 [place] [address] PCP - General Pediatrics 06/05/18 04/25/22 No Pcp, Pcp PCP - General 06/08/22 07/19/22 Guadalupe Mcbride MD PCP - General Family Medicine 07/20/22 11/01/23 Sena Dominguez PA [address] [place] [address] [place] [address] PCP - BRADY Physician Patient Care Manager 11/02/23 Levy Barry MD [address] [place] [address] [place] [address] PCP - General Family Medicine 12/20/23 documented as of this encounter
--- OUTSIDE RECORDS SUMMARY | 2025-07-31 12:07 | XMS_ITS | Encounter Summary ---
Author Organization [facility] work ([facility]) Address [address] [place] [address] Care Team Providers Care Silo Erector Name Role Phone Meme Steel MD Primary Care Provider [phone] Pcp, Pcp Primary Care Provider Unavailabl Guadalupe Bardales MD Primary Care Provider [phone] Sena Dominguez Unavailable [phone] Levy Barry MD Primary Care Provider Unavailab le Source Comments The information that you have received may contain highly confidential and/or federally protected health information. This information has been disclosed to you from records protected by [facility]. The law prohibits you from [...] the sender immediately.[facility] ([facility]) Encounter Details Date Type Department Care Team (Late st Contact Info) Description 10/29/2009 Historical Note [facility] [employer] System Devyn Vásquez MD [address] [place] [address] [phone] Social History Tobacco Use Types Packs/Day Years [...] CARRILLO - [facility] [address] [facility] [address] [place] [phone] Brenda Clay MD [address] [facility] [address] [place] [address] 04/15/2026 10:00 AM EDT Office [facility] [address] [facility] [address] [place] [address] Sena Dominguez PA [address] [facility] [place] [address] documented as of this encounter Visit Diagnoses Not on filedocumented in this encounter Care Teams Silo Erector Relationship Specialty Start Date End Date Meme Steel MD [address] [place] [address] 105 [place] [address] PCP - General Pediatrics 06/05/18 04/25/22 No Pcp, Pcp PCP - General 06/08/22 07/19/22 Guadalupe Mcbride MD PCP - General Family Medicine 07/20/22 11/01/23 Sena Dominguez PA [address] [place] [address] [place] [address] PCP - BRADY Physician Senior Product Development Scientist 11/02/23 Levy Barry MD [address] [place] [address] [place] [address] PCP - General Family Medicine 12/20/23 documented as of this encounter
--- OUTSIDE RECORDS SUMMARY | 2025-07-31 12:07 | XMS_ITS | Encounter Summary ---
Author Organization [facility] work ([facility]) Address [address] [place] [address] Care Team Providers Care Industrial Safety And Health Technician Name Role Phone Meme Steel MD Primary Care Provider [phone] Pcp, Pcp Primary Care Provider Unavailabl Guadalupe Bardales MD Primary Care Provider [phone] Sena Dominguez Unavailable [phone] Levy Barry MD Primary Care Provider Unavailab le Source Comments The information that you have received may contain highly confidential and/or federally protected health information. This information has been disclosed to you from records protected by [facility]. The law prohibits you from [...] please contact the sender immediately.[facility] ([facility]) Encounter Details Date Type Department Care Team (Late st Contact Info) Description 2004 Historical Note [facility] [email or web address] System Devyn Vásquez MD [address] [place] [address] [phone] Social History Tobacco Use Types Packs/Day Years [...] Visit LEATHA CARRILLO - [facility] [address] [facility] [address] [place] [phone] Brenda Clay MD [address] [facility] [address] [place] [phone] 04/15/2026 10:00 AM EDT Office Visit LE[facility]HA [facility] at [facility] + [facility] [address] [facility] [address] [place] [address] Snea Dominguez PA [address] [facility] [place] [address] documented as of this encounter Visit Diagnoses Not on filedocumented in this encounter Care Teams Industrial Safety And Health Technician Relationship Specialty Start Date End Date Meme Steel MD [address] [place] [address] [place] [address] PCP - General Pediatrics 06/05/18 04/25/22 No Pcp, Pcp PCP - General 06/08/22 07/19/22 Guadalupe Mcbride MD PCP - General Family Medicine 07/20/22 11/01/23 Sena Dominguez PA [address] [place] [address] [place] [address] PCP - BRADY Physician Special Education Classroom Aide 11/02/23 Levy Barry MD [address] [place] [address] [place] [address] PCP - General Family Medicine 12/20/23 documented as of this encounter
--- OUTSIDE RECORDS SUMMARY | 2025-07-31 12:07 | XMS_ITS | Encounter Summary ---
Author Organization [facility] work ([facility]) Address [address] [place] [address] Care Team Providers Care Wedding Coordinator Name Role Phone Meme Steel MD Primary Care Provider [phone] No Pcp, Pcp Primary Care Provider Unavailabl Guadalupe Bardales MD Primary Care Provider Sena Dominguez Unavailable [phone] Levy Barry MD Primary Care Provider Unavailab le Source Comments The information that you have received may contain highly confidential and/or federally protected health information. This information has been disclosed to you from records protected by [facility]. The law prohibits you [...] please contact the sender immediately.[facility] ([facility]) Encounter Details Date Type Department Care Team (Late st Contact Info) Description 08/30/2005 Historical Note [facility] [employer] System Devyn Vásquez MD [address] [place] [address] [phone] Social History Tobacco Use Types Packs/Day Years [...] [facility] [address] [facility] [address] [place] [phone] Brenda Clay MD [address] [facility] [address] [place] [address] 04/15/2026 10:00 AM EDT Office Visit [facility]HA [facility] + [facility] [address] [facility] [address] [place] [address] Sena Dominguez PA [address] [facility] [place] [address] documented as of this encounter Visit Diagnoses Not on filedocumented in this encounter Care Teams Wedding Coordinator Relationship Specialty Start Date End Date Meme Steel MD [address] [place] [address] 105 [place] [address] PCP - General Pediatrics 06/05/18 04/25/22 No Pcp, Pcp PCP - General 06/08/22 07/19/22 Guadalupe Mcbride MD PCP - General Family Medicine 07/20/22 11/01/23 Sena Dominguez PA [address] [place] [address] [place] [address] PCP - BRADY Physician Navy Airspace Officer 11/02/23 Levy Barry MD [address] [place] [address] [place] [address] PCP - General Family Medicine 12/20/23 documented as of this encounter
--- OUTSIDE RECORDS SUMMARY | 2025-07-31 12:07 | XMS_ITS | Encounter Summary ---
Author Organization [facility] work ([facility]) Address [address] [place] [address] Care Team Providers Care Automatic Screwmaker Name Role Phone Meme Steel MD Primary Care Provider No Pcp, Pcp Primary Care Provider Unavailabl Guadalupe Bardales MD Primary Care Provider [phone] Sena Dominguez Unavailable Levy Barry MD Primary Care Provider Unavailab le Source Comments The information that you have received may contain highly confidential and/or federally protected health information. This information has been disclosed to you from records protected by [facility]. The law prohibits you from [...] contact the sender immediately.[facility] ([facility]) Encounter Details Date Type Department Care Team (Late st Contact Info) Description 2004 Historical Note [facility] [employer] System Devyn Vásquez MD [address] [place] [address] [phone] Social History Tobacco Use Types Packs/Day Years [...] LEATHA CARRILLO - [facility] [address] [facility] [address] [place] [phone] Brenda Clay MD [address] [facility] [address] [place] [address] 04/15/2026 10:00 AM EDT Office Visit [facility]HA [facility] at [facility] + [facility] [address] [facility] [address] [place] [address] Sena Dominguez PA [address] [facility] [place] [address] documented as of this encounter Visit Diagnoses Not on filedocumented in this encounter Care Teams Automatic Screwmaker Relationship Specialty Start Date End Date Meme Steel MD [address] [place] [address] 105 [place] [address] PCP - General Pediatrics 06/05/18 04/25/22 No Pcp, Pcp PCP - General 06/08/22 07/19/22 Guadalupe Mcbride MD PCP - General Family Medicine 07/20/22 11/01/23 Sena Dominguez PA [address] [place] [address] [place] [address] PCP - BRADY Physician Lambskin Trimmer 11/02/23 eLvy Barry MD [address] [place] [address] [place] [address] PCP - General Family Medicine 12/20/23 documented as of this encounter
--- OUTSIDE RECORDS SUMMARY | 2025-07-31 12:07 | XMS_ITS | Encounter Summary ---
Author Organization [facility] work ([facility]) Address [address] [place] [address] Care Team Providers Care Seconds Grader Name Role Phone Meme Steel MD Primary Care Provider [phone] No Pcp, Pcp Primary Care Provider Unavailabl Guadalupe Bardales MD Primary Care Provider [phone] Sena Dominguez Unavailable [phone] Levy Barry MD Primary Care Provider Unavailab le Source Comments The information that you have received may contain highly confidential and/or federally protected health information. This information has been disclosed to you from records protected by [facility]. The law prohibits you from [...] contact the sender immediately.[facility] ([facility]) Encounter Details Date Type Department Care Team (Late st Contact Info) Description 03/31/2009 Historical Note [facility] [employer] System Devyn Vásquez MD [address] [place] [address] [phone] Social History Tobacco Use Types Packs/Day Years [...] CARRILLO - [facility] [address] [facility] [address] [place] [phone] Brenda Clay MD [address] [facility] [address] [place] [phone] 04/15/2026 10:00 AM EDT Office Visit LE[facility]HA [facility] + [facility] [address] [facility] [address] [place] [address] Sena Dominguez PA [address] [facility] [place] [address] documented as of this encounter Visit Diagnoses Not on filedocumented in this encounter Care Teams Seconds Grader Relationship Specialty Start Date End Date Meme Steel MD [address] [place] [address] 105 [place] [address] PCP - General Pediatrics 06/05/18 04/25/22 No Pcp, Pcp PCP - General 06/08/22 07/19/22 Guadalupe Mcbride MD PCP - General Family Medicine 07/20/22 11/01/23 Sena Dominguez PA [address] [place] [address] [place] [address] PCP - BRADY Physician Paper Cone Maker 11/02/23 Levy Barry MD [address] [place] [address] [place] [address] PCP - General Family Medicine 12/20/23 documented as of this encounter
--- OUTSIDE RECORDS SUMMARY | 2025-07-31 12:07 | XMS_ITS | Encounter Summary ---
Author Organization [facility] work ([facility]) Address [address] [place] [address] Care Team Providers Care Lung Gun Operator Name Role Phone Meme Steel MD Primary Care Provider [phone] Pcp, Pcp Primary Care Provider Unavailabl Guadalupe Bardales MD Primary Care Provider [phone] Sena Dominguez Unavailable [phone] Levy Barry MD Primary Care Provider Unavailab le Source Comments The information that you have received may contain highly confidential and/or federally protected health information. This information has been disclosed to you from records protected by [facility]. The law prohibits you [...] please contact the sender immediately.[facility] ([facility]) Encounter Details Date Type Department Care Team (Late st Contact Info) Description 02/06/2010 Historical Note [facility] [employer] System Devyn Vásquez MD [address] [place] [address] [phone] Social History Tobacco Use Types Packs/Day Years [...] LEATHA CARRILLO - [facility] [address] [employer] [address] [place] [phone] Brenda Clay MD [address] [facility] [address] [place] [address] 04/15/2026 10:00 AM EDT Office Visit LE[facility]HA [facility] at [facility] [address] [facility] [address] [place] [address] Sena Dominguez PA [address] [facility] [place] [address] documented as of this encounter Visit Diagnoses Not on filedocumented in this encounter Care Teams Lung Gun Operator Relationship Specialty Start Date End Date Meme Steel MD [address] [place] [address] 105 [place] [address] PCP - General Pediatrics 06/05/18 04/25/22 No Pcp, Pcp PCP - General 06/08/22 07/19/22 Guadalupe Mcbride MD PCP - General Family Medicine 07/20/22 11/01/23 Sena Dominguez PA [address] [place] [address] [place] [address] PCP - BRADY Physician Release Engineer 11/02/23 Levy Barry MD [address] [place] [address] [place] [address] PCP - General Family Medicine 12/20/23 documented as of this encounter
--- OUTSIDE RECORDS SUMMARY | 2025-07-31 12:07 | XMS_ITS | Encounter Summary ---
Author Organization [facility] work ([facility]) Address [address] [place] [address] Care Team Providers Care Paste Mixer Liquid Name Role Phone Meme Steel MD Primary Care Provider [phone] Pcp, Pcp Primary Care Provider Unavailabl Guadalupe Bardales MD Primary Care Provider [phone] Sena Dominguez Unavailable [phone] Levy Barry MD Primary Care Provider Unavailab le Source Comments The information that you have received may contain highly confidential and/or federally protected health information. This information has been disclosed to you from records protected by [facility]. The law [...] please contact the sender immediately.[facility] ([facility]) Encounter Details Date Type Department Care Team (Late st Contact Info) Description 06/24/2005 Historical Note [facility] Satago System Devyn Vásquez MD [address] [place] [address] [phone] Social History Tobacco Use Types Packs/Day Years [...] CARRILLO - [facility] at [facility] [address] [facility] [address] [place] [phone] Brenda Clay MD [address] [facility] [address] [place] [address] 04/15/2026 10:00 AM EDT Office Visit [facility] [address] [facility] [address] [place] [address] Sena Dominguez PA [address] [facility] [place] [address] documented as of this encounter Visit Diagnoses Not on filedocumented in this encounter Care Teams Paste Mixer Liquid Relationship Specialty Start Date End Date Meme Steel MD [address] [place] [address] [place] [address] PCP - General Pediatrics 06/05/18 04/25/22 No Pcp, Pcp PCP - General 06/08/22 07/19/22 Guadalupe Mcbride MD PCP - General Family Medicine 07/20/22 11/01/23 Sena Dominguez PA [address] [place] [address] [place] [address] PCP - BRADY Physician Heating Fixture Tender 11/02/23 Levy Barry MD [address] [place] [address] [place] [address] PCP - General Family Medicine 12/20/23 documented as of this encounter
--- OUTSIDE RECORDS SUMMARY | 2025-07-31 12:07 | XMS_ITS | Encounter Summary ---
Author Organization [facility] work ([facility]) Address [address] [place] [address] Care Team Providers Care Stove Refinisher Name Role Phone Meme Steel MD Primary Care Provider [phone] Pcp, Pcp Primary Care Provider Unavailabl Guadalupe Bardales MD Primary Care Provider [phone] Sena Dominguez Unavailable [phone] Levy Barry MD Primary Care Provider Unavailab le Source Comments The information that you have received may contain highly confidential and/or federally protected health information. This information has been disclosed to you from records protected by [facility]. The law prohibits you from [...] error, please contact the sender immediately.[facility] ([facility]) Encounter Details Date Type Department Care Team (Late st Contact Info) Description 01/26/2005 Historical Note [facility] Funambol System Devyn Vásquez MD [address] [place] [address] [phone] Social History Tobacco Use Types Packs/Day Years [...] LEATHA CARRILLO - [facility] [address] [facility] [address] [place] [phone] Brenda Clay MD [address] [facility] [address] [place] [address] 04/15/2026 10:00 AM EDT Office Visit [facility] at [facility] + [facility] [address] [facility] [address] [place] [address] Sena Dominguez PA [address] [facility] [place] [address] documented as of this encounter Visit Diagnoses Not on filedocumented in this encounter Care Teams Stove Refinisher Relationship Specialty Start Date End Date Meme Steel MD [address] [place] [address] 105 [place] [address] PCP - General Pediatrics 06/05/18 04/25/22 No Pcp, Pcp PCP - General 06/08/22 07/19/22 Guadalupe Mcbride MD PCP - General Family Medicine 07/20/22 11/01/23 Sena Dominguez PA [address] [place] [address] [place] [address] PCP - BRADY Physician Coremaker Machine 11/02/23 Levy Barry MD [address] [place] [address] [place] [address] PCP - General Family Medicine 12/20/23 documented as of this encounter
--- OUTSIDE RECORDS SUMMARY | 2025-07-31 12:07 | XMS_ITS | Encounter Summary ---
Author Organization [facility] work ([facility]) Address [address] [place] [address] Care Team Providers Care Montessori Preschool Teacher Name Role Phone Meme Steel MD Primary Care Provider [phone] Pcp, Pcp Primary Care Provider Unavailabl Guadalupe Bardales MD Primary Care Provider [phone] Sena Dominguez Unavailable [phone] Levy Barry MD Primary Care Provider Unavailab le Source Comments The information that you have received may contain highly confidential and/or federally protected health information. This information has been disclosed to you from records protected by [facility]. The law prohibits [...] contact the sender immediately.[facility] ([facility]) Encounter Details Date Type Department Care Team (Late st Contact Info) Description 02/06/2010 Historical Note [facility] [employer] System Devyn Vásquez MD [address] [place] [address] [phone] Social History Tobacco Use Types Packs/Day [...] LEATHA CARRILLO - [facility] [address] [facility] [address] [place] [phone] Brenda Clay MD [address] [facility] [address] [place] [address] 04/15/2026 10:00 AM EDT Office Visit [facility] at [facility] + [facility] [address] [facility] [address] [place] [address] Sena Dominguez PA [address] [facility] [place] [address] documented as of this encounter Visit Diagnoses Not on filedocumented in this encounter Care Teams Montessori Preschool Teacher Relationship Specialty Start Date End Date Meme Steel MD [address] [place] [address] 105 [place] [address] PCP - General Pediatrics 06/05/18 04/25/22 No Pcp, Pcp PCP - General 06/08/22 07/19/22 Guadalupe Mcbride MD PCP - General Family Medicine 07/20/22 11/01/23 Sena Dominguez PA [address] [place] [address] [place] [address] PCP - BRADY Physician Human Resources Administrator 11/02/23 Levy Barry MD [address] [place] [address] [place] [address] PCP - General Family Medicine 12/20/23 documented as of this encounter
--- OUTSIDE RECORDS SUMMARY | 2025-07-31 12:07 | XMS_ITS | Encounter Summary ---
Author Organization [facility] work ([facility]) Address [address] [place] [address] Care Team Providers Care Motion Study Technician Name Role Phone Meme Steel MD Primary Care Provider [phone] No Pcp, Pcp Primary Care Provider Unavailabl Guadalupe Bardales MD Primary Care Provider [phone] Sena Dominguez Unavailable [phone] Levy Barry MD Primary Care Provider Unavailab le Source Comments The information that you have received may contain highly confidential and/or federally protected health information. This information has been disclosed to you from records protected by [facility]. The law prohibits you from [...] contact the sender immediately.[facility] ([facility]) Encounter Details Date Type Department Care Team (Late st Contact Info) Description 09/01/2016 Historical Note [facility] [employer] Technology System Devyn Vásquez MD [address] [place] [address] [phone] Social History Tobacco Use Types Packs/Day Years [...] CARRILLO - [facility] [address] [facility] [address] [place] [phone] Brenda Clay MD [address] [facility] [address] [place] [address] 04/15/2026 10:00 AM EDT Office Visit [facility] at [facility] + [facility] [address] [facility] [address] [place] [address] Sena Dominguez PA [address] [facility] [place] [address] documented as of this encounter Visit Diagnoses Not on filedocumented in this encounter Care Teams Motion Study Technician Relationship Specialty Start Date End Date Meme Steel MD [address] [place] [address] 105 [place] [address] PCP - General Pediatrics 06/05/18 04/25/22 No Pcp, Pcp PCP - General 06/08/22 07/19/22 Guadalupe Mcbride MD PCP - General Family Medicine 07/20/22 11/01/23 Sena Dominguez PA [address] [place] [address] [place] [address] PCP - BRADY Physician Wire Annealer 11/02/23 Levy Barry MD [address] [place] [address] [place] [address] PCP - General Family Medicine 12/20/23 documented as of this encounter
--- OUTSIDE RECORDS SUMMARY | 2025-07-31 12:07 | XMS_ITS | Encounter Summary ---
Author Organization [facility] work ([facility]) Address [address] [place] [address] Care Team Providers Care Tin Assorter Name Role Phone Meme Steel MD Primary Care Provider [phone] No Pcp, Pcp Primary Care Provider Unavailabl Guadalupe Bardales MD Primary Care Provider [phone] Sena Dominguez Unavailable [phone] Levy Barry MD Primary Care Provider Unavailab le Source Comments The information that you have received may contain highly confidential and/or federally protected health information. This information has been disclosed to you from records protected by [facility]. The law prohibits [...] please contact the sender immediately.[facility] ([facility]) Encounter Details Date Type Department Care Team (Late st Contact Info) Description 08/30/2005 Historical Note [facility] [employer] System Devyn Vásquez MD [address] [place] [address] [phone] Social History Tobacco Use Types Packs/Day Years [...] - [facility] [address] [facility] [address] [place] [phone] Brenda Clay MD [address] [facility] [address] [place] [phone] 04/15/2026 10:00 AM EDT Office Visit [facility]HA [facility] at [facility] + [facility] [address] [facility] [address] [place] [address] Sena Dominguez PA [address] [facility] [place] [address] documented as of this encounter Visit Diagnoses Not on filedocumented in this encounter Care Teams Tin Assorter Relationship Specialty Start Date End Date Meme Steel MD [address] [place] [address] 105 [place] [address] PCP - General Pediatrics 06/05/18 04/25/22 No Pcp, Pcp PCP - General 06/08/22 07/19/22 Guadalupe Mcbride MD PCP - General Family Medicine 07/20/22 11/01/23 Sena Dominguez PA [address] [place] [address] [place] [address] PCP - BRADY Physician Senior Scientist 11/02/23 Levy Barry MD [address] [place] [address] [place] [address] PCP - General Family Medicine 12/20/23 documented as of this encounter
--- OUTSIDE RECORDS SUMMARY | 2025-07-31 12:07 | XMS_ITS | Encounter Summary ---
Author Organization [facility] work ([facility]) Address [address] [place] [address] Care Team Providers Care Stone Layer Name Role Phone Meme Steel MD Primary Care Provider [phone] No Pcp, Pcp Primary Care Provider Unavailabl Guadalupe Bardales MD Primary Care Provider [phone] Sena Dominguez Unavailable [phone] Levy Barry MD Primary Care Provider Unavailab le Source Comments The information that you have received may contain highly confidential and/or federally protected health information. This information has been disclosed to you from records protected by [facility]. The law prohibits you from [...] Contact Info) Description 01/16/2017 Historical Note [facility] Gonway System Devyn Vásquez MD [address] [place] [address] [phone] Social History Tobacco Use Types Packs/Day Years [...] - [facility] at [facility] [address] [facility] [address] [place] [phone] Brenda Clay MD [address] [facility] [address] [place] [address] 04/15/2026 10:00 AM EDT Office Visit LEATHA [facility] at [facility] + [facility] [address] [facility] [address] [place] [address] Sena Dominguez PA [address] [facility] [place] [address] documented as of this encounter Visit Diagnoses Not on filedocumented in this encounter Care Teams Stone Layer Relationship Specialty Start Date End Date Meme Steel MD [address] [place] [address] 105 [place] [address] PCP - General Pediatrics 06/05/18 04/25/22 No Pcp, Pcp PCP - General 06/08/22 07/19/22 Guadalupe Mcbride MD PCP - General Family Medicine 07/20/22 11/01/23 Sena Dominguez PA [address] [place] [address] [place] [address] PCP - BRADY Physician Calender Let Off Operator 11/02/23 Levy Barry MD [address] [place] [address] [place] [address] PCP - General Family Medicine 12/20/23 documented as of this encounter
--- OUTSIDE RECORDS SUMMARY | 2025-07-31 12:07 | XMS_ITS | Encounter Summary ---
Author Organization [facility] work ([facility]) Address [address] [place] [address] Care Team Providers Care Apron Worker Name Role Phone Meme Steel MD Primary Care Provider [phone] Pcp, Pcp Primary Care Provider Unavailabl Guadalupe Bardales MD Primary Care Provider [phone] Sena Dominguez Unavailable [phone] Levy Barry MD Primary Care Provider Unavailab le Source Comments The information that you have received may contain highly confidential and/or federally protected health information. This information has been disclosed to you from records protected by [facility]. The law prohibits you from [...] contact the sender immediately.[facility] ([facility]) Encounter Details Date Type Department Care Team (Late st Contact Info) Description 08/12/2008 Historical Note [facility] [employer] System Devyn Vásquez MD [address] [place] [address] [phone] Social History Tobacco Use Types Packs/Day Years [...] LEATHA CARRILLO - [facility] [address] [facility] [address] [place] [phone] Brenda Clay MD [address] [facility] [address] [place] [phone] 04/15/2026 10:00 AM EDT Office Visit LEATHA [facility] at [facility] + [facility] [address] [facility] [address] [place] [address] Sena Dominguez PA [address] [facility] [place] [address] documented as of this encounter Visit Diagnoses Not on filedocumented in this encounter Care Teams Apron Worker Relationship Specialty Start Date End Date Meme Steel MD [address] [place] [address] 105 [place] [address] PCP - General Pediatrics 06/05/18 04/25/22 No Pcp, Pcp PCP - General 06/08/22 07/19/22 Guadalupe Mcbride MD PCP - General Family Medicine 07/20/22 11/01/23 Sena Dominguez PA [address] [place] [address] [place] [address] PCP - BRADY Physician Historical Records Administrator 11/02/23 Levy Barry MD [address] [place] [address] [place] [address] PCP - General Family Medicine 12/20/23 documented as of this encounter
--- OUTSIDE RECORDS SUMMARY | 2025-07-31 12:07 | XMS_ITS | Encounter Summary ---
Author Organization [facility] work ([facility]) Address [address] [place] [address] Care Team Providers Care Forepart Laster Name Role Phone Meme Steel MD Primary Care Provider [phone] Pcp, Pcp Primary Care Provider Unavailabl Guadalupe Bardales MD Primary Care Provider [phone] Sena Dominguez Unavailable [phone] Levy Barry MD Primary Care Provider Unavailab le Source Comments The information that you have received may contain highly confidential and/or federally protected health information. This information has been disclosed to you from records protected by [facility]. The law prohibits you [...] in error, please contact the sender immediately. ([facility]) Encounter Details Date Type Department Care Team (Late st Contact Info) Description 10/01/2008 Historical Note [facility] [employer] System Devyn Vásquez MD [address] [place] [address] [phone] Social History Tobacco Use Types Packs/Day Years [...] LEATHA CARRILLO - [facility] [address] [facility] [address] [place] [phone] Brenda Clay MD [address] [facility] [address] [place] [address] 04/15/2026 10:00 AM EDT Office Visit LEATHA [facility] + [facility] [address] [facility] [address] [place] [address] Sena Dominguez PA [address] [facility] [place] [address] documented as of this encounter Visit Diagnoses Not on filedocumented in this encounter Care Teams Forepart Laster Relationship Specialty Start Date End Date Meme Steel MD [address] [place] [address] 105 [place] [address] PCP - General Pediatrics 06/05/18 04/25/22 No Pcp, Pcp PCP - General 06/08/22 07/19/22 Guadalupe Mcbride MD PCP - General Family Medicine 07/20/22 11/01/23 Sena Dominguez PA [address] [place] [address] [place] [address] PCP - BRADY Physician Outreach Liaison 11/02/23 Levy Barry MD [address] [place] [address] [place] [address] PCP - General Family Medicine 12/20/23 documented as of this encounter
--- OUTSIDE RECORDS SUMMARY | 2025-07-31 12:07 | XMS_ITS | Encounter Summary ---
Author Organization [facility] [address] [facility] work ([facility]) Address [address] [place] [address] Care Team Providers Care Ocean Biologist Name Role Phone Meme Steel MD Primary Care Provider [phone] Pcp, Pcp Primary Care Provider Unavailabl Guadalupe Bardales MD Primary Care Provider [phone] Sena Dominguez Unavailable [phone] Levy Barry MD Primary Care Provider Unavailab le Source Comments The information that you have received may contain highly confidential and/or federally protected health information. This information has been disclosed to you from records protected by [facility]. The law prohibits you [...] contact the sender immediately.[facility] ([facility]) Encounter Details Date Type Department Care Team (Late st Contact Info) Description 08/23/2010 Historical Note [facility] [employer] System Devyn Vásquez MD [address] [place] [address] [phone] Social History Tobacco Use Types Packs/Day Years [...] CARRILLO - [facility] [address] [facility] [address] [place] [phone] Brenda Clay MD [address] [facility] [address] [place] [phone] 04/15/2026 10:00 AM EDT Office Visit LEATHA [facility] at [facility] [address] [facility] [address] [place] [address] Sena Dominguez PA [address] [facility] [place] [address] documented as of this encounter Visit Diagnoses Not on filedocumented in this encounter Care Teams Ocean Biologist Relationship Specialty Start Date End Date Meme Steel MD [address] [place] [address] 105 [place] [address] PCP - General Pediatrics 06/05/18 04/25/22 No Pcp, Pcp PCP - General 06/08/22 07/19/22 Guadalupe Mcbride MD PCP - General Family Medicine 07/20/22 11/01/23 Sena Dominguez PA [address] [place] [address] [place] [address] PCP - BRADY Physician Academic Associate 11/02/23 Levy Barry MD [address] [place] [address] [place] [address] PCP - General Family Medicine 12/20/23 documented as of this encounter
--- OUTSIDE RECORDS SUMMARY | 2025-07-31 12:07 | XMS_ITS | Encounter Summary ---
Author Organization [facility] work ([facility]) Address [address] [place] [address] Care Team Providers Care Pathology Secretary Name Role Phone Meme Steel MD Primary Care Provider [phone] No Pcp, Pcp Primary Care Provider Unavailabl Guadalupe Bardales MD Primary Care Provider Sena Dominguez Unavailable [phone] Levy Barry MD Primary Care Provider Unavailab le Source Comments The information that you have received may contain highly confidential and/or federally protected health information. This information has been disclosed to you from records protected by [facility]. The law prohibits you from [...] please contact the sender immediately.[facility] ([facility]) Encounter Details Date Type Department Care Team (Late st Contact Info) Description 02/19/2010 Historical Note [facility] [employer] System Devyn Vásquez MD [address] [place] [address] [phone] Social History Tobacco Use Types Packs/Day Years [...] - [facility] [address] [facility] [address] [place] [phone] Brenda Clay MD [address] [employer] [address] [place] [address] 04/15/2026 10:00 AM EDT Office Visit LE[facility]HA [facility] at [facility] + [facility] [address] [facility] [address] [place] [address] Sena Dominguez PA [address] [facility] [place] [address] documented as of this encounter Visit Diagnoses Not on filedocumented in this encounter Care Teams Pathology Secretary Relationship Specialty Start Date End Date Meme Steel MD [address] [place] [address] [place] [address] PCP - General Pediatrics 06/05/18 04/25/22 No Pcp, Pcp PCP - General 06/08/22 07/19/22 Guadalupe Mcbride MD PCP - General Family Medicine 07/20/22 11/01/23 Sena Dominguez PA [address] [place] [address] [place] [address] PCP - BRADY Physician Skidder Driver 11/02/23 Levy Barry MD [address] [place] [address] [place] [address] PCP - General Family Medicine 12/20/23 documented as of this encounter
--- OUTSIDE RECORDS SUMMARY | 2025-07-31 12:07 | XMS_ITS | Encounter Summary ---
Author Organization [facility] work ([facility]) Address [address] [place] [address] Care Team Providers Care Land Surveying Manager Name Role Phone Meme Steel MD Primary Care Provider [phone] Pcp, Pcp Primary Care Provider Unavailabl Guadalupe Bardales MD Primary Care Provider [phone] Sena Dominguez Unavailable [phone] Levy Barry MD Primary Care Provider Unavailab le Source Comments The information that you have received may contain highly confidential and/or federally protected health information. This information has been disclosed to you from records protected by [facility]. The law prohibits you [...] immediately.[facility] ([facility]) Encounter Details Date Type Department Care Team (Late st Contact Info) Description 2004 Historical Note SVMG Vivisimo System Devyn Vásquez MD [address] [place] [address] [phone] Social History Tobacco Use Types Packs/Day Years [...] LEATHA CARRILLO - [facility] [address] [facility] [address] [place] [phone] Brenda Clay MD [address] [facility] [address] [place] [address] 04/15/2026 10:00 AM EDT Office Visit [facility]HA [facility] at [facility] + [facility] [address] [facility] [address] [place] [address] Sena Dominguez PA [address] [facility] [place] [address] documented as of this encounter Visit Diagnoses Not on filedocumented in this encounter Care Teams Land Surveying Manager Relationship Specialty Start Date End Date Meme Steel MD [address] [place] [address] [place] [address] PCP - General Pediatrics 06/05/18 04/25/22 No Pcp, Pcp PCP - General 06/08/22 07/19/22 Guadalupe Mcbride MD PCP - General Family Medicine 07/20/22 11/01/23 Sena Dominguez PA [address] [place] [address] [place] [address] PCP - BRADY Physician Map Drafter 11/02/23 Levy Barry MD [address] [place] [address] [place] [address] PCP - General Family Medicine 12/20/23 documented as of this encounter
--- OUTSIDE RECORDS SUMMARY | 2025-07-31 12:07 | XMS_ITS | Encounter Summary ---
Author Organization [facility] work ([facility]) Address [address] [place] [address] Care Team Providers Care Shove Up Name Role Phone Meme Steel MD Primary Care Provider [phone] Pcp, Pcp Primary Care Provider Unavailabl Guadalupe Bardales MD Primary Care Provider [phone] Sena Dominguez Unavailable [phone] Levy Barry MD Primary Care Provider Unavailab le Source Comments The information that you have received may contain highly confidential and/or federally protected health information. This information has been disclosed to you from records protected by [facility]. The law prohibits you from [...] contact the sender immediately.[facility] ([facility]) Encounter Details Date Type Department Care Team (Late st Contact Info) Description 2004 Historical Note SVMG Centric Software System Devyn Vásquez MD [address] [place] [address] [phone] Social History Tobacco Use Types Packs/Day Years [...] LEATHA CARRILLO - [facility] [employer] [address] [facility] [address] [place] [phone] Brenda Clay MD [address] [facility] [address] [place] [address] 04/15/2026 10:00 AM EDT Office Visit LEATHA Primary [facility] at [facility] + [facility] [address] [facility] [address] [place] [address] Sena Dominguez PA [address] [facility] [place] [address] documented as of this encounter Visit Diagnoses Not on filedocumented in this encounter Care Teams Shove Up Relationship Specialty Start Date End Date Meme Steel MD [address] [place] [address] 105 [place] [address] PCP - General Pediatrics 06/05/18 04/25/22 No Pcp, Pcp PCP - General 06/08/22 07/19/22 Guadalupe Mcbride MD PCP - General Family Medicine 07/20/22 11/01/23 Sena Dominguez PA [address] [place] [address] [place] [address] PCP - BRADY Physician Crane Manager 11/02/23 Levy Barry MD [address] [place] [address] [place] [address] PCP - General Family Medicine 12/20/23 documented as of this encounter
--- OUTSIDE RECORDS SUMMARY | 2025-07-31 12:07 | XMS_ITS | Encounter Summary ---
Author Organization [facility] work ([facility]) Address [address] [place] [address] Care Team Providers Care Peer Tutor Name Role Phone Meme Steel MD Primary Care Provider [phone] Pcp, Pcp Primary Care Provider Unavailabl Guadalupe Bardales MD Primary Care Provider [phone] Sena Dominguez Unavailable [phone] Levy Barry MD Primary Care Provider Unavailab le Source Comments The information that you have received may contain highly confidential and/or federally protected health information. This information has been disclosed to you from records protected by [facility]. The law prohibits you [...] in error, please contact the sender immediately. ([facility]) Encounter Details Date Type Department Care Team (Late st Contact Info) Description 01/16/2017 Historical Note SVMG Amiare System Devyn Vásquez MD [address] [place] [address] [phone] Social History Tobacco Use Types Packs/Day Years [...] Healthcare at [facility] [address] [facility] [address] [place] [phone] Brenda Clay MD [address] [facility] [address] [place] [address] 04/15/2026 10:00 AM EDT Office Visit [facility]HA [facility] at [facility] + [facility] [address] [facility] [address] [place] [address] Sena Dominguez PA [address] [facility] [place] [address] documented as of this encounter Visit Diagnoses Not on filedocumented in this encounter Care Teams Peer Tutor Relationship Specialty Start Date End Date Meme Steel MD [address] [place] [address] 105 [place] [address] PCP - General Pediatrics 06/05/18 04/25/22 No Pcp, Pcp PCP - General 06/08/22 07/19/22 Guadalupe Mcbride MD PCP - General Family Medicine 07/20/22 11/01/23 Sena Dominguez PA [address] [place] [address] [place] [address] PCP - BRADY Physician Health Education Teacher 11/02/23 Levy Barry MD [address] [place] [address] [place] [address] PCP - General Family Medicine 12/20/23 documented as of this encounter
--- OUTSIDE RECORDS SUMMARY | 2025-07-31 12:07 | XMS_ITS | Encounter Summary ---
Author Organization [facility] work ([facility]) Address [address] [place] [address] Care Team Providers Care Artificial Limb Maker Name Role Phone Meme Steel MD Primary Care Provider [phone] Pcp, Pcp Primary Care Provider Unavailabl Guadalupe Bardales MD Primary Care Provider [phone] Sena Dominguez Unavailable [phone] Levy Barry MD Primary Care Provider Unavailab le Source Comments The information that you have received may contain highly confidential and/or federally protected health information. This information has been disclosed to you from records protected by [facility]. The law prohibits you from [...] immediately.[facility] ([facility]) Encounter Details Date Type Department Care Team (Late st Contact Info) Description 10/27/2016 Historical Note SVMG Dctio System Devyn Vásquez MD [address] [place] [address] [phone] Social History Tobacco Use Types Packs/Day Years [...] LEATHA CARRILLO - [facility] [address] [facility] [address] [place] [phone] Brenda Clay MD [address] [facility] [address] [place] [address] 04/15/2026 10:00 AM EDT Office Visit LEATHA Primary Care at [facility] + [facility] [address] [facility] [address] [place] [address] Sena Dominguez PA [address] [facility] [place] [address] documented as of this encounter Visit Diagnoses Not on filedocumented in this encounter Care Teams Artificial Limb Maker Relationship Specialty Start Date End Date Meme Steel MD [address] [place] [address] 105 [place] [address] PCP - General Pediatrics 06/05/18 04/25/22 No Pcp, Pcp PCP - General 06/08/22 07/19/22 Guadalupe Mcbride MD PCP - General Family Medicine 07/20/22 11/01/23 Sena Dominguez PA [address] [place] [address] [place] [address] PCP - BRADY Physician Lockstitch Front Maker 11/02/23 Levy Barry MD [address] [place] [address] [place] [address] PCP - General Family Medicine 12/20/23 documented as of this encounter
--- OUTSIDE RECORDS SUMMARY | 2025-07-31 12:07 | XMS_ITS | Encounter Summary ---
Author Organization [facility] work ([facility]) Address [address] [place] [address] Care Team Providers Care Coating Mixer Tender Name Role Phone Meme Steel MD Primary Care Provider [phone] Pcp, Pcp Primary Care Provider Unavailabl Guadalupe Bardales MD Primary Care Provider [phone] Sena Dominguez Unavailable [phone] Levy Barry MD Primary Care Provider Unavailab le Source Comments The information that you have received may contain highly confidential and/or federally protected health information. This information has been disclosed to you from records protected by [facility]. The law prohibits you from making [...] please contact the sender immediately.[facility] ([facility]) Encounter Details Date Type Department Care Team (Late st Contact Info) Description 01/16/2017 Historical Note SVMG Optisense System Devyn Vásquez MD [address] [place] [address] [phone] Social History Tobacco Use Types Packs/Day Years [...] LEATHA CARRILLO - [facility] [address] [facility] [address] [place] [phone] Brenda Clay MD [address] [facility] [address] [place] [address] 04/15/2026 10:00 AM EDT Office Visit LEATHA Primary [facility] at [facility] + [facility] [address] [facility] [address] [place] [address] Sena Dominguez PA [address] [facility] [place] [address] documented as of this encounter Visit Diagnoses Not on filedocumented in this encounter Care Teams Coating Mixer Tender Relationship Specialty Start Date End Date Meme Steel MD [address] [place] [address] 105 [place] [address] PCP - General Pediatrics 06/05/18 04/25/22 No Pcp, Pcp PCP - General 06/08/22 07/19/22 Guadalupe Mcbride MD PCP - General Family Medicine 07/20/22 11/01/23 Sena Dominguez PA [address] [place] [address] [place] [address] PCP - BRADY Physician Inspector Tubes 11/02/23 Levy Barry MD [address] [place] [address] [place] [address] PCP - General Family Medicine 12/20/23 documented as of this encounter
--- OUTSIDE RECORDS SUMMARY | 2025-07-31 12:07 | XMS_ITS | Encounter Summary ---
Author Organization [facility] work ([facility]) Address [address] [place] [address] Care Team Providers Care Reliability Technicians Name Role Phone Meme Steel MD Primary Care Provider [phone] Pcp, Pcp Primary Care Provider Unavailabl Guadalupe Bardales MD Primary Care Provider [phone] Sena Dominguez Unavailable [phone] Levy Barry MD Primary Care Provider Unavailab le Source Comments The information that you have received may contain highly confidential and/or federally protected health information. This information has been disclosed to you from records protected by [facility]. The law prohibits you [...] the sender immediately.[facility] ([facility]) Encounter Details Date Type Department Care Team (Late st Contact Info) Description 09/21/2010 Historical Note SVMG Linux Voice System Devyn Vásquez MD [address] [place] [address] [phone] Social History Tobacco Use Types Packs/Day Years [...] Visit LEATHA CARRILLO - [facility] [address] [facility] [address] [place] [phone] Brenda Clay MD [address] [facility] [address] [place] [address] 04/15/2026 10:00 AM EDT Office Visit [facility]HA [facility] at [facility] + [facility] [address] [facility] [address] [place] [address] Sena Dominguez PA [address] [facility] [place] [address] documented as of this encounter Visit Diagnoses Not on filedocumented in this encounter Care Teams Reliability Technicians Relationship Specialty Start Date End Date Meme Steel MD [address] [place] [address] 105 [place] [address] PCP - General Pediatrics 06/05/18 04/25/22 No Pcp, Pcp PCP - General 06/08/22 07/19/22 Guadalupe Mcbride MD PCP - General Family Medicine 07/20/22 11/01/23 Sena Dominguez PA [address] [place] [address] [place] [address] PCP - BRADY Physician Blend Plant Operator 11/02/23 Levy Barry MD [address] [place] [address] [place] [address] PCP - General Family Medicine 12/20/23 documented as of this encounter
--- OUTSIDE RECORDS SUMMARY | 2025-07-31 12:07 | XMS_ITS | Encounter Summary ---
Author Organization [facility] work ([facility]) Address [address] [place] [address] Care Team Providers Care Order Dispatcher Chief Name Role Phone Meme Steel MD Primary Care Provider [phone] Pcp, Pcp Primary Care Provider Unavailabl Guadalupe Bardales MD Primary Care Provider [phone] Sena Dominguez Unavailable [phone] Levy Barry MD Primary Care Provider Unavailab le Source Comments The information that you have received may contain highly confidential and/or federally protected health information. This information has been disclosed to you from records protected by [facility]. The law prohibits you [...] please contact the sender immediately.[facility] ([facility]) Encounter Details Date Type Department Care Team (Late st Contact Info) Description 06/30/2005 Historical Note SVMG Spotlight System Devyn Vásquez MD [address] [place] [address] [phone] Social History Tobacco Use Types Packs/Day Years [...] - [facility] [employer] [address] [facility] [address] [place] [phone] Brenda Clay MD [address] [facility] [address] [place] [address] 04/15/2026 10:00 AM EDT Office Visit LEATHA Primary [facility] at [facility] + [facility] [address] [facility] [address] [place] [address] Sena Dominguez PA [address] [facility] [place] [address] documented as of this encounter Visit Diagnoses Not on filedocumented in this encounter Care Teams Order Dispatcher Chief Relationship Specialty Start Date End Date Meme Steel MD [address] [place] [address] 105 [place] [address] PCP - General Pediatrics 06/05/18 04/25/22 No Pcp, Pcp PCP - General 06/08/22 07/19/22 Guadalupe Mcbride MD PCP - General Family Medicine 07/20/22 11/01/23 Sena Dominguez PA [address] [place] [address] [place] [address] PCP - BRADY Physician Manufacturing Inspector 11/02/23 Levy Barry MD [address] [place] [address] [place] [address] PCP - General Family Medicine 12/20/23 documented as of this encounter
--- OUTSIDE RECORDS SUMMARY | 2025-07-31 12:07 | XMS_ITS | Encounter Summary ---
Author Organization [facility] work ([facility]) Address [address] [place] [address] Care Team Providers Care Plant Reliability Engineer Name Role Phone Meme Steel MD Primary Care Provider [phone] Pcp, Pcp Primary Care Provider Unavailabl Guadalupe Bardales MD Primary Care Provider [phone] Sena Dominguez Unavailable [phone] Levy Barry MD Primary Care Provider Unavailab le Source Comments The information that you have received may contain highly confidential and/or federally protected health information. This information has been disclosed to you from records protected by [facility]. The law prohibits you from making [...] error, please contact the sender immediately.[facility] ([facility]) Encounter Details Date Type Department Care Team (Late st Contact Info) Description 06/30/2005 Historical Note SVMG Medicina System Devyn Vásquez MD [address] [place] [address] [phone] Social History Tobacco Use Types Packs/Day Years [...] CARRILLO - [facility] [address] [facility] [address] [place] [phone] Brenda Clay MD [address] [facility] [address] [place] [address] 04/15/2026 10:00 AM EDT Office Visit LEATHA Primary [facility] at [facility] + [facility] [address] [facility] [address] [place] [address] Sena Dominguez PA [address] [facility] [place] [address] documented as of this encounter Visit Diagnoses Not on filedocumented in this encounter Care Teams Plant Reliability Engineer Relationship Specialty Start Date End Date Meme Steel MD [address] [place] [address] 105 [place] [address] PCP - General Pediatrics 06/05/18 04/25/22 No Pcp, Pcp PCP - General 06/08/22 07/19/22 Guadalupe Mcbride MD PCP - General Family Medicine 07/20/22 11/01/23 Sena Dominguez PA [address] [place] [address] [place] [address] PCP - BRADY Physician Labor Utilization Superintendent 11/02/23 Levy Barry MD [address] [place] [address] [place] [address] PCP - General Family Medicine 12/20/23 documented as of this encounter
--- OUTSIDE RECORDS SUMMARY | 2025-07-31 12:07 | XMS_ITS | Encounter Summary ---
Author Organization [facility] work ([facility]) Address [address] [place] [address] Care Team Providers Care Order Takers Supervisor Name Role Phone Meme Steel MD Primary Care Provider [phone] No Pcp, Pcp Primary Care Provider Unavailabl Guadalupe Bardales MD Primary Care Provider [phone] Sena Dominguez Unavailable [phone] Levy Barry MD Primary Care Provider Unavailab le Source Comments The information that you have received may contain highly confidential and/or federally protected health information. This information has been disclosed to you from records protected by [facility]. The law prohibits you [...] please contact the sender immediately.[facility] ([facility]) Encounter Details Date Type Department Care Team (Late st Contact Info) Description 09/05/2008 Historical Note SVMG iCIMS System Devyn Vásquez MD [address] [place] [address] [phone] Social History Tobacco Use Types Packs/Day Years [...] - [facility] at [facility] [address] [facility] [address] [place] [phone] Brenda Clay MD [address] [facility] [address] [place] [address] 04/15/2026 10:00 AM EDT Office Visit LEATHA [facility] at [facility] + [facility] [address] [facility] [address] [place] [address] Sena Dominguez PA [address] [facility] [place] [address] documented as of this encounter Visit Diagnoses Not on filedocumented in this encounter Care Teams Order Takers Supervisor Relationship Specialty Start Date End Date Meme Steel MD [address] [place] [address] [place] [address] PCP - General Pediatrics 06/05/18 04/25/22 No Pcp, Pcp PCP - General 06/08/22 07/19/22 Guadalupe Mcbride MD PCP - General Family Medicine 07/20/22 11/01/23 Sena Dominguez PA [address] [place] [address] [place] [address] PCP - BRADY Physician Instructor Weaving 11/02/23 Levy Barry MD [address] [place] [address] [place] [address] PCP - General Family Medicine 12/20/23 documented as of this encounter
--- OUTSIDE RECORDS SUMMARY | 2025-07-31 12:07 | XMS_ITS | Encounter Summary ---
Author Organization [facility] work ([facility]) Address [address] [place] [address] Care Team Providers Care Land Lease Information Clerk Name Role Phone Meme Steel MD Primary Care Provider [phone] No Pcp, Pcp Primary Care Provider Unavailabl Guadalupe Bardales MD Primary Care Provider [phone] Sena Dominguez Unavailable [phone] Levy Barry MD Primary Care Provider Unavailab le Source Comments The information that you have received may contain highly confidential and/or federally protected health information. This information has been disclosed to you from records protected by [facility]. The law prohibits you from [...] the sender immediately.[facility] ([facility]) Encounter Details Date Type Department Care Team (Late st Contact Info) Description 09/28/2005 Historical Note SVMG TraNet'te System Devyn Vásquez MD [address] [place] [address] [phone] Social History Tobacco Use Types Packs/Day Years [...] Visit LEATHA CARRILLO - [facility] [address] [facility] [address] [place] [phone] Brenda Clay MD [address] [facility] [address] [place] [address] 04/15/2026 10:00 AM EDT Office Visit LEATHA Primary [facility] at [facility] + [facility] [address] [facility] [address] [place] [address] Sena Dominguez PA [address] [facility] [place] [address] documented as of this encounter Visit Diagnoses Not on filedocumented in this encounter Care Teams Land Lease Information Clerk Relationship Specialty Start Date End Date Meme Steel MD [address] [place] [address] [place] [address] PCP - General Pediatrics 06/05/18 04/25/22 No Pcp, Pcp PCP - General 06/08/22 07/19/22 Guadalupe Mcbride MD PCP - General Family Medicine 07/20/22 11/01/23 Sena Dominguez PA [address] [place] [address] [place] [address] PCP - BRADY Physician Setter Off 11/02/23 Levy Barry MD [address] [place] [address] [place] [address] PCP - General Family Medicine 12/20/23 documented as of this encounter
--- OUTSIDE RECORDS SUMMARY | 2025-07-31 12:07 | XMS_ITS | Encounter Summary ---
Author Organization [facility] work ([facility]) Address [address] [place] [address] Care Team Providers Care Gis Analyst Developer Name Role Phone Meme Steel MD Primary Care Provider [phone] Pcp, Pcp Primary Care Provider Unavailabl Guadalupe Bardales MD Primary Care Provider [phone] Sena Dominguez Unavailable [phone] Levy Barry MD Primary Care Provider Unavailab le Source Comments The information that you have received may contain highly confidential and/or federally protected health information. This information has been disclosed to you from records protected by [facility]. The law prohibits you [...] sender immediately.[facility] ([facility]) Encounter Details Date Type Department Care Team (Late st Contact Info) Description 06/24/2005 Historical Note [facility] LSA Sports System Devyn Vásquez MD [address] [place] [address] [phone] Social History Tobacco Use Types Packs/Day Years [...] CARRILLO - [facility] [address] [facility] [address] [place] [phone] Brenda Clay MD [address] [facility] [address] [place] [address] 04/15/2026 10:00 AM EDT Office Visit [facility] [address] [facility] [address] [place] [address] Sena Dominguez PA [address] [facility] [place] [address] documented as of this encounter Visit Diagnoses Not on filedocumented in this encounter Care Teams Gis Analyst Developer Relationship Specialty Start Date End Date Meme Steel MD [address] [place] [address] [place] [address] PCP - General Pediatrics 06/05/18 04/25/22 No Pcp, Pcp PCP - General 06/08/22 07/19/22 Guadalupe Mcbride MD PCP - General Family Medicine 07/20/22 11/01/23 Sena Dominguez PA [address] [place] [address] [place] [address] PCP - BRADY Physician Tank Setter 11/02/23 Levy Barry MD [address] [place] [address] [place] [address] PCP - General Family Medicine 12/20/23 documented as of this encounter
--- OUTSIDE RECORDS SUMMARY | 2025-07-31 12:07 | XMS_ITS | Encounter Summary ---
Author Organization [facility] work ([facility]) Address [address] [place] [address] Care Team Providers Care Special Day Class Teacher Name Role Phone Meme Steel MD Primary Care Provider [phone] Pcp, Pcp Primary Care Provider Unavailabl Guadalupe Bardales MD Primary Care Provider [phone] Sena Dominguez Unavailable [phone] Levy Barry MD Primary Care Provider Unavailab le Source Comments The information that you have received may contain highly confidential and/or federally protected health information. This information has been disclosed to you from records protected by [facility]. The law prohibits you from [...] contact the sender immediately.[facility] ([facility]) Encounter Details Date Type Department Care Team (Late st Contact Info) Description 10/07/2015 Historical Note [facility] HCDC System Devyn Vásquez MD [address] [place] [address] [phone] Social History Tobacco Use Types Packs/Day Years [...] LEATHA CARRILLO - [facility] [address] [facility] [address] [place] [phone] Brenda Clay MD [address] [facility] [address] [place] [address] 04/15/2026 10:00 AM EDT Office Visit [facility]HA [facility] at [facility] [address] [facility] [address] [place] [address] Sena Dominguez PA [address] [facility] [place] [address] documented as of this encounter Visit Diagnoses Not on filedocumented in this encounter Care Teams Special Day Class Teacher Relationship Specialty Start Date End Date Meme Steel MD [address] [place] [address] 105 [place] [address] PCP - General Pediatrics 06/05/18 04/25/22 No Pcp, Pcp PCP - General 06/08/22 07/19/22 Guadalupe Mcbride MD PCP - General Family Medicine 07/20/22 11/01/23 Sena Dominguez PA [address] [place] [address] [place] [address] PCP - BRADY Physician Access Manager 11/02/23 Levy Barry MD [address] [place] [address] [place] [address] PCP - General Family Medicine 12/20/23 documented as of this encounter
--- OUTSIDE RECORDS SUMMARY | 2025-07-31 12:08 | XMS_ITS | Encounter Summary ---
Author Organization [facility] work ([facility]) Address [address] [place] [address] Care Team Providers Care Security Clerk Name Role Phone Meme Steel MD Primary Care Provider [phone] Pcp, Pcp Primary Care Provider Unavailabl Guadalupe Bardales MD Primary Care Provider [phone] Sena Dominguez Unavailable [phone] Levy Barry MD Primary Care Provider Unavailab le Source Comments The information that you have received may contain highly confidential and/or federally protected health information. This information has been disclosed to you from records protected by [facility]. The law prohibits you [...] sender immediately.[facility] ([facility]) Encounter Details Date Type Department Care Team (Late st Contact Info) Description 2004 Historical Note [facility] inSparq System Devyn Vásquez MD [address] [place] [address] [phone] Social History Tobacco Use Types Packs/Day Years [...] Visit LEATHA CARRILLO - [facility] [address] [facility] [address] [place] [phone] Brenda Clay MD [address] [facility] [address] [place] [address] 04/15/2026 10:00 AM EDT Office Visit [facility] at [facility] [address] [facility] [address] [place] [address] Sena Dominguez PA [address] [facility] [place] [address] documented as of this encounter Visit Diagnoses Not on filedocumented in this encounter Care Teams Security Clerk Relationship Specialty Start Date End Date Meme Steel MD [address] [place] [address] 105 [place] [address] PCP - General Pediatrics 06/05/18 04/25/22 No Pcp, Pcp PCP - General 06/08/22 07/19/22 Guadalupe Mcbride MD PCP - General Family Medicine 07/20/22 11/01/23 Sena Dominguez PA [address] [place] [address] [place] [address] PCP - BRADY Physician Candy Counter Clerk 11/02/23 Levy Barry MD [address] [place] [address] [place] [address] PCP - General Family Medicine 12/20/23 documented as of this encounter
--- OUTSIDE RECORDS SUMMARY | 2025-07-31 12:08 | XMS_ITS | Encounter Summary ---
Author Organization [facility] work ([facility]) Address [address] [place] [address] Care Team Providers Care Sales Agent Insurance Name Role Phone Meme Steel MD Primary Care Provider [phone] Pcp, Pcp Primary Care Provider Unavailabl Guadalupe Bardales MD Primary Care Provider [phone] Sena Dominguez Unavailable [phone] Levy Barry MD Primary Care Provider Unavailab le Source Comments The information that you have received may contain highly confidential and/or federally protected health information. This information has been disclosed to you from records protected by [facility]. The law prohibits you from making [...] contact the sender immediately.[facility] ([facility]) Encounter Details Date Type Department Care Team (Late st Contact Info) Description 03/09/2005 Historical Note [facility] Brainient System Devyn Vásquez MD [address] [place] [address] [phone] Social History Tobacco Use Types Packs/Day Years [...] CARRILLO - [facility] [address] [facility] [address] [place] [phone] Brenda Clay MD [address] [facility] [address] [place] [address] 04/15/2026 10:00 AM EDT Office Visit [facility]HA [facility] at [facility] [address] [facility] [address] [place] [address] Sena Dominguez PA [address] [facility] [place] [address] documented as of this encounter Visit Diagnoses Not on filedocumented in this encounter Care Teams Sales Agent Insurance Relationship Specialty Start Date End Date Meme Steel MD [address] [place] [address] 105 [place] [address] PCP - General Pediatrics 06/05/18 04/25/22 No Pcp, Pcp PCP - General 06/08/22 07/19/22 Guadalupe Mcbride MD PCP - General Family Medicine 07/20/22 11/01/23 Sena Dominguez PA [address] [place] [address] [place] [address] PCP - BRADY Physician Bore Mill Operator 11/02/23 Levy Barry MD [address] [place] [address] [place] [address] PCP - General Family Medicine 12/20/23 documented as of this encounter
--- OUTSIDE RECORDS SUMMARY | 2025-07-31 12:08 | XMS_ITS | Encounter Summary ---
Author Organization [facility] work ([facility]) Address [address] [place] [address] Care Team Providers Care Fitting Room Attendant Name Role Phone Meme Steel MD Primary Care Provider [phone] Pcp, Pcp Primary Care Provider Unavailabl Guadalupe Bardales MD Primary Care Provider [phone] Sena Dominguez Unavailable [phone] Levy Barry MD Primary Care Provider Unavailab le Source Comments The information that you have received may contain highly confidential and/or federally protected health information. This information has been disclosed to you from records protected by [facility]. The law prohibits you from making [...] please contact the sender immediately.[facility] ([facility]) Encounter Details Date Type Department Care Team (Late st Contact Info) Description 02/07/2005 Historical Note [facility] Aeromics System Devyn Vásquez MD [address] [place] [address] [phone] Social History Tobacco Use Types Packs/Day Years [...] Visit LEATHA CARRILLO - [facility] [address] [facility] [address] [place] [phone] Brenda Clay MD [address] [facility] [address] [place] [address] 04/15/2026 10:00 AM EDT Office Visit LE[facility]HA Primary [facility] at [facility] + [facility] [address] [facility] [address] [place] [address] Sena Dominguez PA [address] [facility] [place] [address] documented as of this encounter Visit Diagnoses Not on filedocumented in this encounter Care Teams Fitting Room Attendant Relationship Specialty Start Date End Date Meme Steel MD [address] [place] [address] 105 [place] [address] PCP - General Pediatrics 06/05/18 04/25/22 No Pcp, Pcp PCP - General 06/08/22 07/19/22 Guadalupe Mcbride MD PCP - General Family Medicine 07/20/22 11/01/23 Sena Dominguez PA [address] [place] [address] [place] [address] PCP - BRADY Physician Cotton Stomper 11/02/23 Levy Barry MD [address] [place] [address] [place] [address] PCP - General Family Medicine 12/20/23 documented as of this encounter
--- OUTSIDE RECORDS SUMMARY | 2025-07-31 12:08 | XMS_ITS | Encounter Summary ---
Author Organization [facility] work ([facility] Address [address] [place] [address] Care Team Providers Care Chief Creative Officer Name Role Phone Meme Steel MD Primary Care Provider [phone] Pcp, Pcp Primary Care Provider Unavailabl Guadalupe Bardales MD Primary Care Provider [phone] Sena Dominguez Unavailable [phone] Levy Barry MD Primary Care Provider Unavailab le Source Comments The information that you have received may contain highly confidential and/or federally protected health information. This information has been disclosed to you from records protected by [facility]. The law prohibits you [...] please contact the sender immediately.[facility] ([facility] Encounter Details Date Type Department Care Team (Late st Contact Info) Description 10/05/2015 Historical Note [facility] SpanDeX System Devyn Vásquez MD [address] [place] [address] [phone] Social History Tobacco Use Types Packs/Day Years [...] CARRILLO - [facility] [address] [facility] [employer] [address] [place] [phone] Brenda Clay MD [address] [facility] [address] [place] [address] 04/15/2026 10:00 AM EDT Office Visit [facility]HA [facility] at [facility] [address] [facility] [address] [place] [address] Sena Dominguez PA [address] [facility] [place] [address] documented as of this encounter Visit Diagnoses Not on filedocumented in this encounter Care Teams Chief Creative Officer Relationship Specialty Start Date End Date Meme Steel MD [address] [place] [address] 105 [place] [address] PCP - General Pediatrics 06/05/18 04/25/22 No Pcp, Pcp PCP - General 06/08/22 07/19/22 Guadalupe Mcbride MD PCP - General Family Medicine 07/20/22 11/01/23 Sena Dominguez PA [address] [place] [address] [place] [address] PCP - BRADY Physician Pump Servicer 11/02/23 Levy Barry MD [address] [place] [address] [place] [address] PCP - General Family Medicine 12/20/23 documented as of this encounter
--- OUTSIDE RECORDS SUMMARY | 2025-07-31 12:08 | XMS_ITS | Encounter Summary ---
Author Organization [facility] work ([facility]) Address [address] [place] [address] Care Team Providers Care Studio Artist Name Role Phone Meme Steel MD Primary Care Provider [phone] No Pcp, Pcp Primary Care Provider Unavailabl Guadalupe Bardales MD Primary Care Provider [phone] Sena Dominguez Unavailable [phone] Levy Barry MD Primary Care Provider Unavailab le Source Comments The information that you have received may contain highly confidential and/or federally protected health information. This information has been disclosed to you from records protected by [facility]. The law prohibits you from making [...] immediately.[facility] ([facility]) Encounter Details Date Type Department Care Team (Late st Contact Info) Description 12/31/2015 Historical Note [facility] Evri System Devyn Vásquez MD [address] [place] [address] [phone] Social History Tobacco Use Types Packs/Day Years [...] LEATHA CARRILLO - [facility] [address] [facility] [address] [place] [phone] Brenda Clay MD [address] [facility] [address] [place] [address] 04/15/2026 10:00 AM EDT Office Visit LEATHA [facility] at [facility] [address] [facility] [address] [place] [address] Sena Dominguez PA [address] [facility] [place] [address] documented as of this encounter Visit Diagnoses Not on filedocumented in this encounter Care Teams Studio Artist Relationship Specialty Start Date End Date Meme Steel MD [address] [place] [address] 105 [place] [address] PCP - General Pediatrics 06/05/18 04/25/22 No Pcp, Pcp PCP - General 06/08/22 07/19/22 Guadalupe Mcbride MD PCP - General Family Medicine 07/20/22 11/01/23 Sena Dominguez PA [address] [place] [address] [place] [address] PCP - BRADY Physician Government Auditor 11/02/23 Levy Barry MD [address] [place] [address] [place] [address] PCP - General Family Medicine 12/20/23 documented as of this encounter
--- OUTSIDE RECORDS SUMMARY | 2025-07-31 12:08 | XMS_ITS | Encounter Summary ---
Author Organization [facility] work ([facility]) Address [address] [place] [address] Care Team Providers Care Bung Driver Name Role Phone Meme Steel MD Primary Care Provider No Pcp, Pcp Primary Care Provider Unavailabl Guadalupe Bardales MD Primary Care Provider [phone] Sena Dominguez Unavailable [phone] Levy Barry MD Primary Care Provider Unavailab le Source Comments The information that you have received may contain highly confidential and/or federally protected health information. This information has been disclosed to you from records protected by [facility]. The law prohibits you from [...] sender immediately.[facility] ([facility]) Encounter Details Date Type Department Care Team (Late st Contact Info) Description 04/09/2009 Historical Note [facility] vzaar System Devyn Vásquez MD [address] [place] [address] [phone] Social History Tobacco Use Types Packs/Day Years [...] Visit LEATHA CARRILLO - [facility] [address] [facility] [address] [place] [phone] Brenda Clay MD [address] [facility] [address] [place] [address] 04/15/2026 10:00 AM EDT Office Visit LEATHA Primary Care at [facility] + [facility] [address] [facility] [address] [place] [address] Sena Dominguez PA [address] [facility] [place] [address] documented as of this encounter Visit Diagnoses Not on filedocumented in this encounter Care Teams Bung Driver Relationship Specialty Start Date End Date Meme Steel MD [address] [place] [address] 105 [place] [address] PCP - General Pediatrics 06/05/18 04/25/22 No Pcp, Pcp PCP - General 06/08/22 07/19/22 Guadalupe Mcbride MD PCP - General Family Medicine 07/20/22 11/01/23 Sena Dominguez PA [address] [place] [address] [place] [address] PCP - BRADY Physician Machine Container Washer 11/02/23 Levy Barry MD [address] [place] [address] [place] [address] PCP - General Family Medicine 12/20/23 documented as of this encounter
--- OUTSIDE RECORDS SUMMARY | 2025-07-31 12:08 | XMS_ITS | Encounter Summary ---
Author Organization [facility] work ([facility]) Address [address] [place] [address] Care Team Providers Care Power House Engineer Name Role Phone Meme Steel MD Primary Care Provider [phone] Pcp, Pcp Primary Care Provider Unavailabl Guadalupe Bardales MD Primary Care Provider [phone] Sena Dominguez Unavailable [phone] Levy Barry MD Primary Care Provider Unavailab le Source Comments The information that you have received may contain highly confidential and/or federally protected health information. This information has been disclosed to you from records protected by [facility]. The law prohibits you [...] the sender immediately.[facility] ([facility]) Encounter Details Date Type Department Care Team (Late st Contact Info) Description 03/02/2005 Historical Note [facility] Mindlikes System Devyn Vásquez MD [address] [place] [address] [phone] Social History Tobacco Use Types Packs/Day Years [...] CARRILLO - [facility] [address] [facility] [address] [place] [phone] Brenda Clay MD [address] [facility] [address] [place] [phone] 04/15/2026 10:00 AM EDT Office Visit LE[facility]HA [facility] at [facility] [address] [facility] [address] [place] [address] Sena Dominguez PA [address] [facility] [place] [address] documented as of this encounter Visit Diagnoses Not on filedocumented in this encounter Care Teams Power House Engineer Relationship Specialty Start Date End Date Meme Steel MD [address] [place] [address] 105 [place] [address] PCP - General Pediatrics 06/05/18 04/25/22 No Pcp, Pcp PCP - General 06/08/22 07/19/22 Guadalupe Mcbride MD PCP - General Family Medicine 07/20/22 11/01/23 Sena Dominguez PA [address] [place] [address] [place] [address] PCP - BRADY Physician Rail Car Mechanic 11/02/23 Levy Barry MD [address] [place] [address] [place] [address] PCP - General Family Medicine 12/20/23 documented as of this encounter
--- OUTSIDE RECORDS SUMMARY | 2025-07-31 12:08 | XMS_ITS | Encounter Summary ---
Author Organization [facility] work ([facility]) Address [address] [place] [address] Care Team Providers Care Commodity Management Specialist Name Role Phone Meme Steel MD Primary Care Provider [phone] Pcp, Pcp Primary Care Provider Unavailabl Guadalupe Bardales MD Primary Care Provider [phone] Sena Dominguez Unavailable [phone] Levy Barry MD Primary Care Provider Unavailab le Source Comments The information that you have received may contain highly confidential and/or federally protected health information. This information has been disclosed to you from records protected by [facility]. The law prohibits you from making [...] please contact the sender immediately.[facility] ([facility]) Encounter Details Date Type Department Care Team (Late st Contact Info) Description 03/03/2005 Historical Note [facility] Scream Entertainment System Devyn Vásquez MD [address] [place] [address] [phone] Social History Tobacco Use Types Packs/Day Years [...] LEATHA CARRILLO - [facility] [address] [facility] [address] [place] [phone] Brenda Clay MD [address] [facility] [address] [place] [address] 04/15/2026 10:00 AM EDT Office Visit LEATHA [facility] at [facility] + [facility] [address] [facility] [address] [place] [address] Sena Dominguez PA [address] [facility] [place] [address] documented as of this encounter Visit Diagnoses Not on filedocumented in this encounter Care Teams Commodity Management Specialist Relationship Specialty Start Date End Date Meme Steel MD [address] [place] [address] 105 [place] [address] PCP - General Pediatrics 06/05/18 04/25/22 No Pcp, Pcp PCP - General 06/08/22 07/19/22 Guadalupe Mcbride MD PCP - General Family Medicine 07/20/22 11/01/23 Sena Dominguez PA [address] [place] [address] [place] [address] PCP - BRADY Physician Manager Supply Chain 11/02/23 Levy Barry MD [address] [place] [address] [place] [address] PCP - General Family Medicine 12/20/23 documented as of this encounter
--- OUTSIDE RECORDS SUMMARY | 2025-07-31 12:08 | XMS_ITS | Encounter Summary ---
Author Organization [facility] work ([facility]) Address [address] [place] [address] Care Team Providers Care Customer Service Consultant Name Role Phone Meme Steel MD Primary Care Provider [phone] Pcp, Pcp Primary Care Provider Unavailabl Guadalupe Bardales MD Primary Care Provider [phone] Sena Dominguez Unavailable [phone] Levy Barry MD Primary Care Provider Unavailab le Source Comments The information that you have received may contain highly confidential and/or federally protected health information. This information has been disclosed to you from records protected by [facility]. The law prohibits you [...] sender immediately.[facility] ([facility]) Encounter Details Date Type Department Care Team (Late st Contact Info) Description 03/10/2009 Historical Note [facility] Branch2 System Devyn Vásquez MD [address] [place] [address] [phone] Social History Tobacco Use Types Packs/Day Years [...] LEATHA CARRILLO - [facility] [address] [place] [phone] Brenda Clay MD [address] [facility] [address] [place] [address] 04/15/2026 10:00 AM EDT Office Visit LEATHA [facility] at [facility] + [facility] [address] [facility] [address] [place] [address] Sena Dominguez PA [address] [facility] [place] [address] documented as of this encounter Visit Diagnoses Not on filedocumented in this encounter Care Teams Customer Service Consultant Relationship Specialty Start Date End Date Meme Steel MD [address] [place] [address] [place] [address] PCP - General Pediatrics 06/05/18 04/25/22 No Pcp, Pcp PCP - General 06/08/22 07/19/22 Guadalupe Mcbride MD PCP - General Family Medicine 07/20/22 11/01/23 Sena Dominguez PA [address] [place] [address] [place] [address] PCP - BRADY Physician Cotton Header 11/02/23 Levy Barry MD [address] [place] [address] [place] [address] PCP - General Family Medicine 12/20/23 documented as of this encounter
--- OUTSIDE RECORDS SUMMARY | 2025-07-31 12:08 | XMS_ITS | Encounter Summary ---
Author Organization [facility] work ([facility]) Address [address] [place] [address] Care Team Providers Care Pipe Cleaning Machine Operator Name Role Phone Meme Steel MD Primary Care Provider [phone] Pcp, Pcp Primary Care Provider Unavailabl Guadalupe Bardales MD Primary Care Provider [phone] Sena Dominguez Unavailable [phone] Levy Barry MD Primary Care Provider Unavailab le Source Comments The information that you have received may contain highly confidential and/or federally protected health information. This information has been disclosed to you from records protected by [facility]. The law prohibits you from [...] [facility] ([facility]) Encounter Details Date Type Department Care Team (Late st Contact Info) Description 04/10/2009 Historical Note [facility] Tiltap System Devyn Vásquez MD [address] [place] [address] [phone] Social History Tobacco Use Types Packs/Day Years [...] CARRILLO - [facility] [address] [place] [phone] Brenda Clay MD [address] [facility] [address] [place] [phone] 04/15/2026 10:00 AM EDT Office Visit LEATHA [facility] at [facility] + [facility] [address] [place] [address] Sena Dominguez PA [address] [place] [address] documented as of this encounter Visit Diagnoses Not on filedocumented in this encounter Care Teams Pipe Cleaning Machine Operator Relationship Specialty Start Date End Date Meme Steel MD [address] [place] [address] 105 [place] [address] PCP - General Pediatrics 06/05/18 04/25/22 No Pcp, Pcp PCP - General 06/08/22 07/19/22 Guadalupe Mcbride MD PCP - General Family Medicine 07/20/22 11/01/23 Sena Dominguez PA [address] [place] [address] [place] [address] PCP - BRADY Physician Senior Sustainability Consultant 11/02/23 Levy Barry MD [address] [place] [address] [place] [address] PCP - General Family Medicine 12/20/23 documented as of this encounter
--- OUTSIDE RECORDS SUMMARY | 2025-07-31 12:08 | XMS_ITS | Encounter Summary ---
Author Organization [facility] work ([facility]) Address [address] [place] [address] Care Team Providers Care Insurance Claim Representative Name Role Phone Meme Steel MD Primary Care Provider [phone] Pcp, Pcp Primary Care Provider Unavailabl Guadalupe Bardales MD Primary Care Provider [phone] Sena Dominguez Unavailable [phone] Levy Barry MD Primary Care Provider Unavailab le Source Comments The information that you have received may contain highly confidential and/or federally protected health information. This information has been disclosed to you from records protected by [employer] [facility]. The law prohibits you from [...] sender immediately.[facility] ([facility]) Encounter Details Date Type Department Care Team (Late st Contact Info) Description 01/03/2008 Historical Note SVMG [employer] System Devyn Vásquez MD [address] [place] [address] [id number] Social History Tobacco Use Types Packs/Day Years [...] CARRILLO - [facility] [address] [facility] [address] [place] [phone] Brenda Clay MD [address] [facility] [address] [place] [phone] 04/15/2026 10:00 AM EDT Office Visit LEATHA [facility] at [facility] + [facility] [address] [facility] [address] [place] [address] Sena Dominguez PA [address] [facility] [place] [address] documented as of this encounter Visit Diagnoses Not on filedocumented in this encounter Care Teams Insurance Claim Representative Relationship Specialty Start Date End Date Meme Steel MD [address] [place] [address] 105 [place] [address] PCP - General Pediatrics 06/05/18 04/25/22 No Pcp, Pcp PCP - General 06/08/22 07/19/22 Guadalupe Mcbride MD PCP - General Family Medicine 07/20/22 11/01/23 Sena Dominguez PA [address] [place] [address] [place] [address] PCP - BRADY Physician Supportive Employment Case Manager 11/02/23 Levy Barry MD [address] [place] [address] [place] [address] PCP - General Family Medicine 12/20/23 documented as of this encounter
--- OUTSIDE RECORDS SUMMARY | 2025-07-31 12:08 | XMS_ITS | Encounter Summary ---
Author Organization [facility] work ([facility]) Address [address] [place] [address] Care Team Providers Care Open Hearth Furnace Laborer Name Role Phone Meme Steel MD Primary Care Provider [phone] Pcp, Pcp Primary Care Provider Unavailabl Guadalupe Bardales MD Primary Care Provider [phone] Sena Dominguez Unavailable [phone] Levy Barry MD Primary Care Provider Unavailab le Source Comments The information that you have received may contain highly confidential and/or federally protected health information. This information has been disclosed to you from records protected by [facility]. The law prohibits you from [...] contact the sender immediately.[facility] ([facility]) Encounter Details Date Type Department Care Team (Late st Contact Info) Description 03/03/2005 Historical Note [facility] DataCentred System Devyn Vásquez MD [address] [place] [address] [phone] Social History Tobacco Use Types Packs/Day Years [...] LEATHA CARRILLO - [facility] [address] [facility] [address] [place] [phone] Brenda Clay MD [address] [facility] [address] [place] [phone] 04/15/2026 10:00 AM EDT Office Visit LEATHA Primary [facility] at [facility] + [facility] [address] [facility] [address] [place] [address] Sena Dominguez PA [address] [facility] [place] [address] documented as of this encounter Visit Diagnoses Not on filedocumented in this encounter Care Teams Open Hearth Furnace Laborer Relationship Specialty Start Date End Date Meme Steel MD [address] [place] [address] 105 [place] [address] PCP - General Pediatrics 06/05/18 04/25/22 No Pcp, Pcp PCP - General 06/08/22 07/19/22 Guadalupe Mcbride MD PCP - General Family Medicine 07/20/22 11/01/23 Sena Dominguez PA [address] [place] [address] [place] [address] PCP - BRADY Physician Analytical Research Program Manager 11/02/23 Levy Barry MD [address] [place] [address] [place] [address] PCP - General Family Medicine 12/20/23 documented as of this encounter
--- OUTSIDE RECORDS SUMMARY | 2025-07-31 12:08 | XMS_ITS | Encounter Summary ---
Author Organization [facility] work ([facility]) Address [address] [place] [address] Care Team Providers Care Manager Division Name Role Phone Meme Steel MD Primary Care Provider [phone] Pcp, Pcp Primary Care Provider Unavailabl Guadalupe Bardales MD Primary Care Provider [phone] Sena Dominguez Unavailable [phone] Levy Barry MD Primary Care Provider Unavailab le Source Comments The information that you have received may contain highly confidential and/or federally protected health information. This information has been disclosed to you from records protected by [facility]. The law prohibits you from making [...] contact the sender immediately.[facility] ([facility]) Encounter Details Date Type Department Care Team (Late st Contact Info) Description 04/10/2009 Historical Note [facility] FonJax System Devyn Vásquez MD [address] [place] [address] [phone] Social History Tobacco Use Types Packs/Day Years [...] - [facility] at [facility] [address] [facility] [address] [place] [phone] Brenda Clay MD [address] [facility] [address] [place] [phone] 04/15/2026 10:00 AM EDT Office Visit LEATHA [facility] at [facility] + [facility] [address] [facility] [address] [place] [address] Sena Dominguez PA [address] [facility] [place] [address] documented as of this encounter Visit Diagnoses Not on filedocumented in this encounter Care Teams Manager Division Relationship Specialty Start Date End Date Meme Steel MD [address] [place] [address] 105 [place] [address] PCP - General Pediatrics 06/05/18 04/25/22 No Pcp, Pcp PCP - General 06/08/22 07/19/22 Guadalupe Mcbride MD PCP - General Family Medicine 07/20/22 11/01/23 Sena Dominguez PA [address] [place] [address] [place] [address] PCP - BRADY Physician Director Channel 11/02/23 Levy Barry MD [address] [place] [address] [place] [address] PCP - General Family Medicine 12/20/23 documented as of this encounter
--- OUTSIDE RECORDS SUMMARY | 2025-07-31 12:08 | XMS_ITS | Encounter Summary ---
Author Organization [facility] work ([facility]) Address [address] [place] [address] Care Team Providers Care Bee Breeder Name Role Phone Meme Steel MD Primary Care Provider [phone] Pcp, Pcp Primary Care Provider Unavailabl Guadalupe Bardales MD Primary Care Provider Sena Dominguez Unavailable [phone] Levy Barry MD Primary Care Provider Unavailab le Source Comments The information that you have received may contain highly confidential and/or federally protected health information. This information has been disclosed to you from records protected by [facility]. The law prohibits you [...] the sender immediately.[facility] ([facility]) Encounter Details Date Type Department Care Team (Late st Contact Info) Description 12/31/2015 Historical Note [facility]G GrantAdler System Devyn Vásquez MD [address] [place] [address] [phone] Social History Tobacco Use Types Packs/Day Years [...] Visit LEATHA CARRILLO - [facility] [address] [facility] [address] [place] [phone] Brenda Clay MD [address] [facility] [address] [place] [phone] 04/15/2026 10:00 AM EDT Office Visit LEATHA [facility] at [facility] + [facility] [address] [facility] [address] [place] [address] Sena Dominguez PA [address] [facility] [place] [address] documented as of this encounter Visit Diagnoses Not on filedocumented in this encounter Care Teams Bee Breeder Relationship Specialty Start Date End Date Meme Steel MD [address] [place] [address] 105 [place] [address] PCP - General Pediatrics 06/05/18 04/25/22 No Pcp, Pcp PCP - General 06/08/22 07/19/22 Guadalupe Mcbride MD PCP - General Family Medicine 07/20/22 11/01/23 Sena Dominguez PA [address] [place] [address] [place] [address] PCP - BRADY Physician Clinical Rn 11/02/23 Levy Barry MD [address] [place] [address] [place] [address] PCP - General Family Medicine 12/20/23 documented as of this encounter
--- OUTSIDE RECORDS SUMMARY | 2025-07-31 12:08 | XMS_ITS | Encounter Summary ---
Author Organization [facility] work ([facility]) Address [address] [place] [address] Care Team Providers Care Apprentice Plant Attendant Name Role Phone Meme Steel MD Primary Care Provider [phone] Pcp, Pcp Primary Care Provider Unavailabl Guadalupe Bardales MD Primary Care Provider [phone] Sena Dominguez Unavailable [phone] Levy Barry MD Primary Care Provider Unavailab le Source Comments The information that you have received may contain highly confidential and/or federally protected health information. This information has been disclosed to you from records protected by [facility]. The law prohibits you [...] please contact the sender immediately.[facility] ([facility]) Encounter Details Date Type Department Care Team (Late st Contact Info) Description 08/06/2009 Historical Note [facility] [employer] System Devyn Vásquez MD [address] [place] [address] [phone] Social History Tobacco Use Types Packs/Day Years [...] LEATHA CARRILLO - [facility] [address] [facility] [address] [place] [phone] Brenda Clay MD [address] [facility] [address] [place] [phone] 04/15/2026 10:00 AM EDT Office Visit LEATHA [facility] at [facility] + [facility] [address] [facility] [address] [place] [address] Sena Dominguez PA [address] [facility] [place] [address] documented as of this encounter Visit Diagnoses Not on filedocumented in this encounter Care Teams Apprentice Plant Attendant Relationship Specialty Start Date End Date Meme Steel MD [address] [place] [address] 105 [place] [address] PCP - General Pediatrics 06/05/18 04/25/22 No Pcp, Pcp PCP - General 06/08/22 07/19/22 Guadalupe Mcbride MD PCP - General Family Medicine 07/20/22 11/01/23 Sena Dominguez PA [address] [place] [address] [place] [address] PCP - BRADY Physician World Designer 11/02/23 Levy Barry MD [address] [place] [address] [place] [address] PCP - General Family Medicine 12/20/23 documented as of this encounter
--- OUTSIDE RECORDS SUMMARY | 2025-07-31 12:08 | XMS_ITS | Encounter Summary ---
Author Organization [facility] work ([facility]) Address [address] [place] [address] Care Team Providers Care Roll Scale Man Name Role Phone Meme Steel MD Primary Care Provider [phone] Pcp, Pcp Primary Care Provider Unavailabl Guadalupe Bardales MD Primary Care Provider [phone] Sena Dominguez Unavailable [phone] Levy Barry MD Primary Care Provider Unavailab le Source Comments The information that you have received may contain highly confidential and/or federally protected health information. This information has been disclosed to you from records protected by [facility] [facility]. The law prohibits [...] contact the sender immediately.[facility] ([facility]) Encounter Details Date Type Department Care Team (Late st Contact Info) Description 04/12/2005 Historical Note [facility] [employer] System Devyn Vásquez MD [address] [place] [address] [phone] Social History Tobacco Use Types Packs/Day Years [...] Visit LEATHA CARRILLO - [facility] [address] [facility] [address] [place] [phone] Brenda Clay MD [address] [facility] [address] [place] [address] 04/15/2026 10:00 AM EDT Office Visit LEATHA Primary Care at [facility] + [facility] [address] [facility] [address] [place] [address] Sena Dominguez PA [address] [facility] [place] [address] documented as of this encounter Visit Diagnoses Not on filedocumented in this encounter Care Teams Roll Scale Man Relationship Specialty Start Date End Date Meme Steel MD [address] [place] [address] 105 [place] [address] PCP - General Pediatrics 06/05/18 04/25/22 No Pcp, Pcp PCP - General 06/08/22 07/19/22 Guadalupe Mcbride MD PCP - General Family Medicine 07/20/22 11/01/23 Sena Dominguez PA [address] [place] [address] [place] [address] PCP - BRADY Physician Wire Spiral Binder 11/02/23 Levy Barry MD [address] [place] [address] [place] [address] PCP - General Family Medicine 12/20/23 documented as of this encounter
--- OUTSIDE RECORDS SUMMARY | 2025-07-31 12:08 | XMS_ITS | Encounter Summary ---
Author Organization [facility] work ([facility]) Address [address] [place] [address] Care Team Providers Care Geophysical Laboratory Director Name Role Phone Meme Steel MD Primary Care Provider [phone] No Pcp, Pcp Primary Care Provider Unavailabl Guadalupe Bardales MD Primary Care Provider [phone] Sena Dominguez Unavailable [phone] Levy Barry MD Primary Care Provider Unavailab le Source Comments The information that you have received may contain highly confidential and/or federally protected health information. This information has been disclosed to you from records protected by [facility]. The law prohibits [...] contact the sender immediately.[facility] ([facility]) Encounter Details Date Type Department Care Team (Late st Contact Info) Description 11/27/2015 Historical Note SVMG 51 Auto System Devyn Vásquez MD [address] [place] [address] [phone] Social History Tobacco Use Types Packs/Day Years [...] CARRILLO - [facility] [address] [facility] [address] [place] [phone] Brenda Clay MD [address] [employer] [address] [place] [phone] 04/15/2026 10:00 AM EDT Office Visit LEATHA Primary [facility] at [facility] + [facility] [address] [facility] [address] [place] [address] Sena Dominguez PA [address] [facility] [place] [address] documented as of this encounter Visit Diagnoses Not on filedocumented in this encounter Care Teams Geophysical Laboratory Director Relationship Specialty Start Date End Date Meme Steel MD [address] [place] [address] 105 [place] [address] PCP - General Pediatrics 06/05/18 04/25/22 No Pcp, Pcp PCP - General 06/08/22 07/19/22 Guadalupe Mcbride MD PCP - General Family Medicine 07/20/22 11/01/23 Sena Dominguez PA [address] [place] [address] [place] [address] PCP - BRADY Physician Family And Consumer Sciences Teacher 11/02/23 Levy Barry MD [address] [place] [address] [place] [address] PCP - General Family Medicine 12/20/23 documented as of this encounter
--- OUTSIDE RECORDS SUMMARY | 2025-07-31 12:08 | XMS_ITS | Encounter Summary ---
Author Organization [facility] work ([facility]) Address [address] [place] [address] Care Team Providers Care Bottom Polisher Name Role Phone Meme Steel MD Primary Care Provider [phone] No Pcp, Pcp Primary Care Provider Unavailabl Guadalupe Bardales MD Primary Care Provider [phone] Sena Dominguez Unavailable [phone] Levy Barry MD Primary Care Provider Unavailab le Source Comments The information that you have received may contain highly confidential and/or federally protected health information. This information has been disclosed to you from records protected by [facility]. The [...] please contact the sender immediately.[facility] ([facility]) Encounter Details Date Type Department Care Team (Late st Contact Info) Description 08/21/2014 Historical Note [facility] Sleep Number System Devyn Vásquez MD [address] [place] [address] [phone] Social History Tobacco Use Types Packs/Day Years [...] [facility] [address] [facility] [address] [place] [phone] Brenda Clay MD [address] [facility] [address] [place] [phone] 04/15/2026 10:00 AM EDT Office Visit LE[facility]HA [facility] [address] [facility] [address] [place] [address] Sena Dominguez PA [address] [facility] [place] [address] documented as of this encounter Visit Diagnoses Not on filedocumented in this encounter Care Teams Bottom Polisher Relationship Specialty Start Date End Date Meme Steel MD [address] [place] [address] 105 [place] [address] PCP - General Pediatrics 06/05/18 04/25/22 No Pcp, Pcp PCP - General 06/08/22 07/19/22 Guadalupe Mcbride MD PCP - General Family Medicine 07/20/22 11/01/23 Sena Dominguez PA [address] [place] [address] [place] [address] PCP - BRADY Physician Assistant Store Manager Trainee 11/02/23 Levy Barry MD [address] [place] [address] [place] [address] PCP - General Family Medicine 12/20/23 documented as of this encounter
--- OUTSIDE RECORDS SUMMARY | 2025-07-31 12:08 | XMS_ITS | Encounter Summary ---
Author Organization [facility] work ([facility]) Address [address] [place] [address] Care Team Providers Care Sessions Clerk Name Role Phone Meme Steel MD Primary Care Provider [phone] Pcp, Pcp Primary Care Provider Unavailabl Guadalupe Bardales MD Primary Care Provider [phone] Sena Dominguez Unavailable [phone] Levy Barry MD Primary Care Provider Unavailab le Source Comments The information that you have received may contain highly confidential and/or federally protected health information. This information has been disclosed to you from records protected by [facility]. The law prohibits you from [...] please contact the sender immediately.[facility] ([facility]) Encounter Details Date Type Department Care Team (Late st Contact Info) Description 10/05/2015 Historical Note [facility] PECO Pallet System Devyn Vásquez MD [address] [place] [address] [id number] Social History Tobacco Use Types Packs/Day Years [...] LEATHA CARRILLO - [facility] at [facility] [address] [facility] [address] [place] [phone] Brenda Clay MD [address] [facility] [address] [place] [address] 04/15/2026 10:00 AM EDT Office Visit LEATHA [facility] at [facility] + [facility] [address] [facility] [address] [place] [address] Sena Dominguez PA [address] [facility] [place] [address] documented as of this encounter Visit Diagnoses Not on filedocumented in this encounter Care Teams Sessions Clerk Relationship Specialty Start Date End Date Meme Steel MD [address] [place] [address] [place] [address] PCP - General Pediatrics 06/05/18 04/25/22 No Pcp, Pcp PCP - General 06/08/22 07/19/22 Guadalupe Mcbride MD PCP - General Family Medicine 07/20/22 11/01/23 Sena Dominguze PA [address] [place] [address] [place] [address] PCP - BRADY Physician Hotel Concierge 11/02/23 Levy Barry MD [address] [place] [address] [place] [address] PCP - General Family Medicine 12/20/23 documented as of this encounter
--- OUTSIDE RECORDS SUMMARY | 2025-07-31 12:08 | XMS_ITS | Encounter Summary ---
Author Organization [facility] work ([facility]) Address [address] [place] [address] Care Team Providers Care Chiller Hand Name Role Phone Meme Steel MD Primary Care Provider [phone] Pcp, Pcp Primary Care Provider Unavailabl Guadalupe Bardales MD Primary Care Provider [phone] Sena Dominguez Unavailable Levy Barry MD Primary Care Provider Unavailab le Source Comments The information that you have received may contain highly confidential and/or federally protected health information. This information has been disclosed to you from records protected by [facility]. The law prohibits you [...] immediately.[facility] ([facility]) Encounter Details Date Type Department Care Team (Late st Contact Info) Description 04/12/2005 Historical Note [facility] Piece of Cake System Devyn Vásquez MD [address] [place] [address] [phone] Social History Tobacco Use Types Packs/Day Years [...] AM EST Office Visit LEATHA ACRRILLO - [facility] at [facility] [address] [facility] [address] [place] [phone] Brenda Clay MD [address] [facility] [address] [place] [address] 04/15/2026 10:00 AM EDT Office Visit LEATHA [facility] at [facility] [address] [facility] [address] [place] [address] Sena Dominguez PA [address] [facility] [place] [address] documented as of this encounter Visit Diagnoses Not on filedocumented in this encounter Care Teams Chiller Hand Relationship Specialty Start Date End Date Meme Steel MD [address] [place] [address] 105 [place] [address] PCP - General Pediatrics 06/05/18 04/25/22 No Pcp, Pcp PCP - General 06/08/22 07/19/22 Guadalupe Mcbride MD PCP - General Family Medicine 07/20/22 11/01/23 Sena Dominguez PA [address] [place] [address] [place] [address] PCP - BRADY Physician Dryland Farmer 11/02/23 Levy Barry MD [address] [place] [address] [place] [address] PCP - General Family Medicine 12/20/23 documented as of this encounter
--- OUTSIDE RECORDS SUMMARY | 2025-07-31 12:08 | XMS_ITS | Encounter Summary ---
Author Organization [facility] work ([facility]) Address [address] [place] [address] Care Team Providers Care Porter Baggage Name Role Phone Meme Steel MD Primary Care Provider [phone] Pcp, Pcp Primary Care Provider Unavailabl Guadalupe Bardales MD Primary Care Provider [phone] Sena Dominguez Unavailable [phone] Levy Barry MD Primary Care Provider Unavailab le Source Comments The information that you have received may contain highly confidential and/or federally protected health information. This information has been disclosed to you from records protected by [facility]. The law prohibits you [...] please contact the sender immediately.[facility] ([facility]) Encounter Details Date Type Department Care Team (Late st Contact Info) Description 04/09/2009 Historical Note [facility] 3SP Group System Devyn Vásquez MD [address] [place] [phone] Social History Tobacco Use Types Packs/Day Years [...] CARRILLO - [facility] [address] [facility] [address] [place] [phone] Brenda Clay MD [address] [facility] [address] [place] [address] 04/15/2026 10:00 AM EDT Office Visit LEATHA Primary Care at [facility] + [facility] [address] [facility] [address] [place] [address] Sena Dominguez PA [address] [facility] [place] [address] documented as of this encounter Visit Diagnoses Not on filedocumented in this encounter Care Teams Porter Baggage Relationship Specialty Start Date End Date eMme Steel MD [address] [place] [address] 105 [place] [address] PCP - General Pediatrics 06/05/18 04/25/22 No Pcp, Pcp PCP - General 06/08/22 07/19/22 Guadalupe Mcbride MD PCP - General Family Medicine 07/20/22 11/01/23 Sena Dominguez PA [address] [place] [address] [place] [address] PCP - BRADY Physician Corporate Licensed Broker 11/02/23 Levy Barry MD [address] [place] [address] [place] [address] PCP - General Family Medicine 12/20/23 documented as of this encounter
--- OUTSIDE RECORDS SUMMARY | 2025-07-31 12:08 | XMS_ITS | Encounter Summary ---
Author Organization [facility] work ([facility]) Address [address] [place] [address] Care Team Providers Care Lead Android Developer Name Role Phone Meme Steel MD Primary Care Provider [phone] Pcp, Pcp Primary Care Provider Unavailabl Guadalupe Bardales MD Primary Care Provider [phone] Sena Dominguez Unavailable [phone] Levy Barry MD Primary Care Provider Unavailab le Source Comments The information that you have received may contain highly confidential and/or federally protected health information. This information has been disclosed to you from records protected by [facility]. The law prohibits you [...] sender immediately.[facility] ([facility]) Encounter Details Date Type Department Care Team (Late st Contact Info) Description 10/12/2015 Historical Note [facility] Assistera System Devyn Vásquez MD [address] [place] [address] [phone] Social History Tobacco Use Types Packs/Day Years [...] CARRILLO - [facility] [address] [facility] [address] [place] [phone] Brenda Clay MD [address] [facility] [address] [place] [address] 04/15/2026 10:00 AM EDT Office Visit LEATHA Primary Care at [facility] + [facility] [address] [facility] [address] [place] [address] Sena Dominguez PA [address] [facility] [place] [address] documented as of this encounter Visit Diagnoses Not on filedocumented in this encounter Care Teams Lead Android Developer Relationship Specialty Start Date End Date Meme Steel MD [address] [place] [address] 105 [place] [address] PCP - General Pediatrics 06/05/18 04/25/22 No Pcp, Pcp PCP - General 06/08/22 07/19/22 Guadalupe Mcbride MD PCP - General Family Medicine 07/20/22 11/01/23 Sena Dominguez PA [address] [place] [address] [place] [address] PCP - BRADY Physician Fixing Machine Operator 11/02/23 Levy Barry MD [address] [place] [address] [place] [address] PCP - General Family Medicine 12/20/23 documented as of this encounter
--- OUTSIDE RECORDS SUMMARY | 2025-07-31 12:08 | XMS_ITS | Encounter Summary ---
Author Organization [facility] work ([facility]) Address [address] [place] [address] Care Team Providers Care Cutter Grinder Name Role Phone Meme Steel MD Primary Care Provider [phone] Pcp, Pcp Primary Care Provider Unavailabl Guadalupe Bardales MD Primary Care Provider [phone] Sena Dominguez Unavailable [phone] Levy Barry MD Primary Care Provider Unavailab le Source Comments The information that you have received may contain highly confidential and/or federally protected health information. This information has been disclosed to you from records protected by [facility]. The law prohibits you from [...] the sender immediately.[facility] ([facility]) Encounter Details Date Type Department Care Team (Late st Contact Info) Description 04/09/2009 Historical Note SVMG tibdit System Devyn Vásquez MD [address] [place] [address] [phone] Social History Tobacco Use Types Packs/Day Years [...] AM EST Office Visit LEATHA ACRRILLO - [facility] at [facility] [address] [facility] [address] [place] [phone] Brenda Clay MD [address] [facility] [address] [place] [address] 04/15/2026 10:00 AM EDT Office Visit LEATHA Primary [facility] at [facility] + [facility] [address] [facility] [address] [place] [address] Sena Dominguez PA [address] [facility] [place] [address] documented as of this encounter Visit Diagnoses Not on filedocumented in this encounter Care Teams Cutter Grinder Relationship Specialty Start Date End Date Meme Steel MD [address] [place] [address] 105 [place] [address] PCP - General Pediatrics 06/05/18 04/25/22 No Pcp, Pcp PCP - General 06/08/22 07/19/22 Guadalupe Mcbride MD PCP - General Family Medicine 07/20/22 11/01/23 Sena Dominguez PA [address] [place] [address] [place] [address] PCP - BRADY Physician Gas Substation Operator 11/02/23 Levy Barry MD [address] [place] [address] [place] [address] PCP - General Family Medicine 12/20/23 documented as of this encounter
--- OUTSIDE RECORDS SUMMARY | 2025-07-31 12:08 | XMS_ITS | Encounter Summary ---
Author Organization [facility] work ([facility]) Address [address] [place] [address] Care Team Providers Care Partition Making Machine Operator Name Role Phone Meme Steel MD Primary Care Provider [phone] Pcp, Pcp Primary Care Provider Unavailabl Guadalupe Bardales MD Primary Care Provider [phone] Sena Dominguez Unavailable [phone] Levy Barry MD Primary Care Provider Unavailab le Source Comments The information that you have received may contain highly confidential and/or federally protected health information. This information has been disclosed to you from records protected by [facility] (ABAM)[facility]. The law prohibits you from [...] contact the sender immediately.[facility] ([facility]) Encounter Details Date Type Department Care Team (Late st Contact Info) Description 10/01/2008 Historical Note SVMG Weather Analytics System Devyn Vásquez MD [address] [place] [address] [phone] Social History Tobacco Use Types Packs/Day Years [...] Visit LEATHA CARRILLO - [facility] [address] [facility] [address] [place] [phone] Brenda Clay MD [address] [facility] [address] [place] [address] 04/15/2026 10:00 AM EDT Office Visit LEATHA Primary [facility] at [facility] + [facility] [address] [facility] [address] [place] [address] Sena Dominguez PA [address] [facility] [place] [address] documented as of this encounter Visit Diagnoses Not on filedocumented in this encounter Care Teams Partition Making Machine Operator Relationship Specialty Start Date End Date Meme Steel MD [address] [place] [address] 105 [place] [address] PCP - General Pediatrics 06/05/18 04/25/22 No Pcp, Pcp PCP - General 06/08/22 07/19/22 Guadalupe Mcbride MD PCP - General Family Medicine 07/20/22 11/01/23 Sena Dominguez PA [address] [place] [address] [place] [address] PCP - BRADY Physician Die Maker Electronic 11/02/23 Levy Barry MD [address] [place] [address] [place] [address] PCP - General Family Medicine 12/20/23 documented as of this encounter
--- OUTSIDE RECORDS SUMMARY | 2025-07-31 12:08 | XMS_ITS | Encounter Summary ---
Author Organization [facility] work ([facility]) Address [address] [place] [address] Care Team Providers Care Metal Bonding Press Operator Name Role Phone Meme Steel MD Primary Care Provider [phone] No Pcp, Pcp Primary Care Provider Unavailabl Guadalupe Bardales MD Primary Care Provider [phone] Sena Dominguez Unavailable [phone] Levy Barry MD Primary Care Provider Unavailab le Source Comments The information that you have received may contain highly confidential and/or federally protected health information. This information has been disclosed to you from records protected by [facility]. The law prohibits [...] the sender immediately.[facility] ([facility]) Encounter Details Date Type Department Care Team (Late st Contact Info) Description 03/02/2005 Historical Note SVMG [email or web address] System Devyn Vásquez MD [address] [place] [address] [phone] Social History Tobacco Use Types Packs/Day Years [...] LEATHA CARRILLO - [facility] [address] [facility] [address] [place] [phone] Brenda Clay MD [address] [facility] [address] [place] [address] 04/15/2026 10:00 AM EDT Office Visit LE[facility]HA [facility] at [facility] [address] [facility] [address] [place] [address] Sena Dominguez PA [address] [facility] [place] [address] documented as of this encounter Visit Diagnoses Not on filedocumented in this encounter Care Teams Metal Bonding Press Operator Relationship Specialty Start Date End Date Meme Steel MD [address] [place] [address] 105 [place] [address] PCP - General Pediatrics 06/05/18 04/25/22 No Pcp, Pcp PCP - General 06/08/22 07/19/22 Guadalupe Mcbride MD PCP - General Family Medicine 07/20/22 11/01/23 Sena Dominguez PA [address] [place] [address] [place] [address] PCP - BRADY Physician Station Master 11/02/23 Levy Barry MD [address] [place] [address] [place] [address] PCP - General Family Medicine 12/20/23 documented as of this encounter
--- OUTSIDE RECORDS SUMMARY | 2025-07-31 12:08 | XMS_ITS | Encounter Summary ---
Author Organization [facility] work ([facility]) Address [address] [place] [address] Care Team Providers Care Oracle Financials Consultant Name Role Phone Meme Steel MD Primary Care Provider [phone] Pcp, Pcp Primary Care Provider Unavailabl Guadalupe Bardales MD Primary Care Provider [phone] Sena Dominguez Unavailable [phone] Levy Barry MD Primary Care Provider Unavailab le Source Comments The information that you have received may contain highly confidential and/or federally protected health information. This information has been disclosed to you from records protected by [facility]. The law prohibits you from [...] please contact the sender immediately.[facility] ([facility]) Encounter Details Date Type Department Care Team (Late st Contact Info) Description 01/28/2005 Historical Note SVMG DailyDigital System Devyn Vásquez MD [address] [place] [address] [id number] Social History Tobacco Use Types Packs/Day Years [...] CARRILLO - [facility] [address] [facility] [address] [place] [phone] Brenda Clay MD [address] [facility] [address] [place] [address] 04/15/2026 10:00 AM EDT Office Visit LEATHA Primary Care at [facility] + [facility] [address] [facility] [address] [place] [address] Sena Dominguez PA [address] [facility] [place] [address] documented as of this encounter Visit Diagnoses Not on filedocumented in this encounter Care Teams Oracle Financials Consultant Relationship Specialty Start Date End Date Meme Steel MD [address] [place] [address] 105 [place] [address] PCP - General Pediatrics 06/05/18 04/25/22 No Pcp, Pcp PCP - General 06/08/22 07/19/22 Guadalupe Mcbride MD PCP - General Family Medicine 07/20/22 11/01/23 Sena Dominguez PA [address] [place] [address] [place] [address] PCP - BRADY Physician Lead Ramp Service Man 11/02/23 Levy Barry MD [address] [place] [address] [place] [address] PCP - General Family Medicine 12/20/23 documented as of this encounter
--- OUTSIDE RECORDS SUMMARY | 2025-07-31 12:08 | XMS_ITS | Encounter Summary ---
Author Organization [facility] work ([facility]) Address [address] [place] [address] Care Team Providers Care Nutrition Technician Name Role Phone Meme Steel MD Primary Care Provider [phone] Pcp, Pcp Primary Care Provider Unavailabl Guadalupe Bardalse MD Primary Care Provider [phone] Sena Dominguez Unavailable [phone] Levy Barry MD Primary Care Provider Unavailab le Source Comments The information that you have received may contain highly confidential and/or federally protected health information. This information has been disclosed to you from records protected by [facility]. The law prohibits you [...] error, please contact the sender immediately.[facility] ([facility]) Encounter Details Date Type Department Care Team (Late st Contact Info) Description 10/02/2008 Historical Note SVMG Stampt System Devyn Vásquez MD [address] [place] [address] [phone] Social History Tobacco Use Types Packs/Day Years [...] CARRILLO - [facility] [address] [facility] [address] [place] [phone] Brenda Clay MD [address] [facility] [address] [place] [address] 04/15/2026 10:00 AM EDT Office Visit LEATHA Primary [facility] at [facility] + [facility] [address] [facility] [address] [place] [address] Sena Dominguez PA [address] [facility] [place] [address] documented as of this encounter Visit Diagnoses Not on filedocumented in this encounter Care Teams Nutrition Technician Relationship Specialty Start Date End Date Meme Steel MD [address] [place] [address] 105 [place] [address] PCP - General Pediatrics 06/05/18 04/25/22 No Pcp, Pcp PCP - General 06/08/22 07/19/22 Guadalupe Mcbride MD PCP - General Family Medicine 07/20/22 11/01/23 Sena Dominguez PA [address] [place] [address] [place] [address] PCP - BRADY Physician Benefits Specialist 11/02/23 Levy Barry MD [address] [place] [address] [place] [address] PCP - General Family Medicine 12/20/23 documented as of this encounter
--- OUTSIDE RECORDS SUMMARY | 2025-07-31 12:08 | XMS_ITS | Encounter Summary ---
Author Organization [facility] work ([facility]) Address [address] [place] [address] Care Team Providers Care Typing Bookkeeper Name Role Phone Meme Steel MD Primary Care Provider [phone] Pcp, Pcp Primary Care Provider Unavailabl Guadalupe Bardales MD Primary Care Provider [phone] Sena Dominguez Unavailable [phone] Levy Barry MD Primary Care Provider Unavailab le Source Comments The information that you have received may contain highly confidential and/or federally protected health information. This information has been disclosed to you from records protected by [facility]. The law prohibits you from [...] error, please contact the sender immediately.[facility] ([facility]) Encounter Details Date Type Department Care Team (Late st Contact Info) Description 2004 Historical Note SVMG Curasight System Devyn Vásquez MD [address] [place] [address] [phone] Social History Tobacco Use Types Packs/Day Years [...] - [facility] [address] [facility] [address] [place] [phone] Brenda Clay MD [address] [facility] [address] [place] [address] 04/15/2026 10:00 AM EDT Office Visit LEATHA Primary [facility] at [facility] + [facility] [address] [facility] [address] [place] [address] Sena Dominguez PA [address] [facility] [place] [address] documented as of this encounter Visit Diagnoses Not on filedocumented in this encounter Care Teams Typing Bookkeeper Relationship Specialty Start Date End Date Meme Steel MD [address] [place] [address] 105 [place] [address] PCP - General Pediatrics 06/05/18 04/25/22 No Pcp, Pcp PCP - General 06/08/22 07/19/22 Guadalupe Mcbride MD PCP - General Family Medicine 07/20/22 11/01/23 Sena Dominguez PA [address] [place] [address] [place] [address] PCP - BRADY Physician Roller Embosser 11/02/23 Levy Barry MD [address] [place] [address] [place] [address] PCP - General Family Medicine 12/20/23 documented as of this encounter
--- OUTSIDE RECORDS SUMMARY | 2025-07-31 12:08 | XMS_ITS | Encounter Summary ---
Author Organization [facility] work ([facility]) Address [address] [place] [address] Care Team Providers Care Tavern Operator Name Role Phone Meme Steel MD Primary Care Provider [phone] Pcp, Pcp Primary Care Provider Unavailabl Guadalupe Bardales MD Primary Care Provider [phone] Sena Dominguez Unavailable [phone] Levy Barry MD Primary Care Provider Unavailab le Source Comments The information that you have received may contain highly confidential and/or federally protected health information. This information has been disclosed to you from records protected by [facility]. The law prohibits you from making [...] error, please contact the sender immediately.[facility] ([facility]) Encounter Details Date Type Department Care Team (Late st Contact Info) Description 08/06/2009 Historical Note [facility] AntVoice System Devyn Vásquez MD [address] [place] [address] [phone] Social History Tobacco Use Types Packs/Day Years [...] Visit LEATHA CARRILLO - [facility] [address] [facility] [address] [place] [phone] Brenda Clay MD [address] [facility] [address] [place] [phone] 04/15/2026 10:00 AM EDT Office Visit [facility]HA [facility] at [facility] + [facility] [address] [facility] [address] [place] [address] Sena Dominguez PA [address] [facility] [place] [address] documented as of this encounter Visit Diagnoses Not on filedocumented in this encounter Care Teams Tavern Operator Relationship Specialty Start Date End Date Meme Steel MD [address] [place] [address] 105 [place] [address] PCP - General Pediatrics 06/05/18 04/25/22 No Pcp, Pcp PCP - General 06/08/22 07/19/22 Guadalupe Mcbride MD PCP - General Family Medicine 07/20/22 11/01/23 Sena Dominguez PA [address] [place] [address] [place] [address] PCP - BRADY Physician Seed Packer 11/02/23 Levy Barry MD [address] [place] [address] [place] [address] PCP - General Family Medicine 12/20/23 documented as of this encounter
--- OUTSIDE RECORDS SUMMARY | 2025-07-31 12:08 | XMS_ITS | Encounter Summary ---
Author Organization [facility] work ([facility]) Address [address] [place] [address] Care Team Providers Care Child Care Attendant School Name Role Phone Meme Steel MD Primary Care Provider [phone] Pcp, Pcp Primary Care Provider Unavailabl Guadalupe Bardales MD Primary Care Provider [phone] Sena Dominguez Unavailable [phone] Levy Barry MD Primary Care Provider Unavailab le Source Comments The information that you have received may contain highly confidential and/or federally protected health information. This information has been disclosed to you from records protected by [facility]. The law prohibits you from [...] please contact the sender immediately.[facility] ([facility]) Encounter Details Date Type Department Care Team (Late st Contact Info) Description 03/10/2009 Historical Note [facility] Sift Science System Devyn Vásquez MD [address] [place] [address] [phone] Social History Tobacco Use Types Packs/Day Years [...] Office Visit LEATHA CARRILLO - [facility] [address] [facility] [address] [place] [phone] Brenda Clay MD [address] [employer] [employer] [place] [address] 04/15/2026 10:00 AM EDT Office Visit [facility]HA [facility] at [facility] + [facility] [address] [facility] [address] [place] [address] Sena Dominguez PA [address] [facility] [place] [address] documented as of this encounter Visit Diagnoses Not on filedocumented in this encounter Care Teams Child Care Attendant School Relationship Specialty Start Date End Date Meme Steel MD [address] [place] [address] 105 [place] [address] PCP - General Pediatrics 06/05/18 04/25/22 No Pcp, Pcp PCP - General 06/08/22 07/19/22 Guadalupe Mcbride MD PCP - General Family Medicine 07/20/22 11/01/23 Sena Dominguez PA [address] [place] [address] [place] [address] PCP - BRADY Physician Last Repairer Helper 11/02/23 Levy Barry MD [address] [place] [address] [place] [address] PCP - General Family Medicine 12/20/23 documented as of this encounter
--- OUTSIDE RECORDS SUMMARY | 2025-07-31 12:08 | XMS_ITS | Encounter Summary ---
Author Organization [facility] work ([facility]) Address [address] [place] [address] Care Team Providers Care Last Waxer Name Role Phone Meme Steel MD Primary Care Provider [phone] Pcp, Pcp Primary Care Provider Unavailabl Guadalupe Bardales MD Primary Care Provider [phone] Sena Dominguez Unavailable [phone] Levy Barry MD Primary Care Provider Unavailab le Source Comments The information that you have received may contain highly confidential and/or federally protected health information. This information has been disclosed to you from records protected by Powered by [facility]. The law prohibits you from [...] please contact the sender immediately.[facility] ([facility]) Encounter Details Date Type Department Care Team (Late st Contact Info) Description 01/07/2016 Historical Note [facility] Social Media Networks System Devyn Vásquez MD [address] [place] [address] [phone] Social History Tobacco Use Types Packs/Day Years [...] CARRILLO - [facility] [address] [facility] [address] [place] [phone] Brenda Clay MD [address] [facility] [address] [place] [phone] 04/15/2026 10:00 AM EDT Office Visit [facility] [place] [facility] [address] [facility] [address] [place] [address] Sena Dominguez PA [address] [facility] [place] [address] documented as of this encounter Visit Diagnoses Not on filedocumented in this encounter Care Teams Last Waxer Relationship Specialty Start Date End Date Meme Steel MD [address] [place] [address] 105 [place] [address] PCP - General Pediatrics 06/05/18 04/25/22 No Pcp, Pcp PCP - General 06/08/22 07/19/22 Guadalupe Mcbride MD PCP - General Family Medicine 07/20/22 11/01/23 Sena Dominguez PA [address] [place] [address] [place] [address] PCP - BRADY Physician Traffic Control Specialist 11/02/23 Levy Barry MD [address] [place] [address] [place] [address] PCP - General Family Medicine 12/20/23 documented as of this encounter
--- OUTSIDE RECORDS SUMMARY | 2025-07-31 12:08 | XMS_ITS | Encounter Summary ---
Author Organization [facility] work ([facility]) Address [address] [place] [address] Care Team Providers Care Kiln Stoker Name Role Phone Meme Steel MD Primary Care Provider [phone] Pcp, Pcp Primary Care Provider Unavailabl Guadalupe Bardales MD Primary Care Provider [phone] Sena Dominguez Unavailable [phone] Levy Barry MD Primary Care Provider Unavailab le Source Comments The information that you have received may contain highly confidential and/or federally protected health information. This information has been disclosed to you from records protected by [facility]. The law prohibits you from making [...] the sender immediately.[facility] ([facility]) Encounter Details Date Type Department Care Team (Late st Contact Info) Description 11/27/2015 Historical Note [facility] Syncplicity System Devyn Vásquez MD [address] [place] [address] [phone] Social History Tobacco Use Types Packs/Day Years [...] LEATHA CARRILLO - [facility] at [facility] [address] [facility] [address] [place] [phone] Brenda Clay MD [address] [facility] [address] [place] [address] 04/15/2026 10:00 AM EDT Office Visit [facility] + [facility] [address] [facility] [address] [place] [address] Sena Dominguez PA [address] [facility] [place] [address] documented as of this encounter Visit Diagnoses Not on filedocumented in this encounter Care Teams Kiln Stoker Relationship Specialty Start Date End Date Meme Steel MD [address] [place] [address] 105 [place] [address] PCP - General Pediatrics 06/05/18 04/25/22 No Pcp, Pcp PCP - General 06/08/22 07/19/22 Guadalupe Mcbride MD PCP - General Family Medicine 07/20/22 11/01/23 Sena Dominguez PA [address] [place] [address] [place] [address] PCP - BRADY Physician Disintegrator Feeder 11/02/23 Levy Barry MD [address] [place] [address] [place] [address] PCP - General Family Medicine 12/20/23 documented as of this encounter
--- OUTSIDE RECORDS SUMMARY | 2025-07-31 12:08 | XMS_ITS | Encounter Summary ---
Author Organization [facility] work ([facility]) Address [address] [place] [address] Care Team Providers Care Bakery Assistant Name Role Phone Meme Steel MD Primary Care Provider [phone] Pcp, Pcp Primary Care Provider Unavailabl Guadalupe Bardales MD Primary Care Provider [phone] Sena Dominguez Unavailable [phone] Levy Barry MD Primary Care Provider Unavailab le Source Comments The information that you have received may contain highly confidential and/or federally protected health information. This information has been disclosed to you from records protected by [facility]. The law prohibits you [...] please contact the sender immediately.[facility] ([facility]) Encounter Details Date Type Department Care Team (Late st Contact Info) Description 05/28/2015 Historical Note [facility] Playcez System Devyn Vásquez MD [address] [place] [address] [phone] Social History Tobacco Use Types Packs/Day Years [...] CARRILLO - [facility] [address] [facility] [address] [place] [phone] Brenda Clay MD [address] [facility] [address] [place] [phone] 04/15/2026 10:00 AM EDT Office Visit [facility]HA [facility] at [facility] + [facility] [address] [facility] [address] [place] [address] Sena Dominguez PA [address] [facility] [place] [address] documented as of this encounter Visit Diagnoses Not on filedocumented in this encounter Care Teams Bakery Assistant Relationship Specialty Start Date End Date Meme Steel MD [address] [place] [address] 105 [place] [address] PCP - General Pediatrics 06/05/18 04/25/22 No Pcp, Pcp PCP - General 06/08/22 07/19/22 Guadalupe Mcbride MD PCP - General Family Medicine 07/20/22 11/01/23 Sena Dominguez PA [address] [place] [address] [place] [address] PCP - BRADY Physician Natural Sciences Department Chair 11/02/23 Levy Barry MD [address] [place] [address] [place] [address] PCP - General Family Medicine 12/20/23 documented as of this encounter
--- OUTSIDE RECORDS SUMMARY | 2025-07-31 12:08 | XMS_ITS | Encounter Summary ---
Author Organization [facility] work ([facility]) Address [address] [place] [address] Care Team Providers Care Print Washer Name Role Phone Meme Steel MD Primary Care Provider [phone] Pcp, Pcp Primary Care Provider Unavailabl Guadalupe Bardales MD Primary Care Provider [phone] Sena Dominguez Unavailable [phone] Levy Barry MD Primary Care Provider Unavailab le Source Comments The information that you have received may contain highly confidential and/or federally protected health information. This information has been disclosed to you from records protected by [employer] [facility] [facility]. The law prohibits you [...] please contact the sender immediately.[facility] ([facility]) Encounter Details Date Type Department Care Team (Late st Contact Info) Description 01/07/2016 Historical Note [facility] [employer] Telecom [employer] Technology System Devyn Vásquez MD [address] [place] [address] [phone] Social History Tobacco Use Types Packs/Day Years [...] Visit LEATHA CARRILLO - [facility] [address] [facility] [address] [place] [phone] Brenda Clay MD [address] [facility] [address] [place] [address] 04/15/2026 10:00 AM EDT Office Visit LEATHA Primary [facility] at [facility] + [facility] [address] [facility] [address] [place] [address] Sena Dominguez PA [address] [facility] [place] [address] documented as of this encounter Visit Diagnoses Not on filedocumented in this encounter Care Teams Print Washer Relationship Specialty Start Date End Date Meme Steel MD [address] [place] [address] 105 [place] [address] PCP - General Pediatrics 06/05/18 04/25/22 No Pcp, Pcp PCP - General 06/08/22 07/19/22 Guadalupe Mcbride MD PCP - General Family Medicine 07/20/22 11/01/23 Sena Dominguez PA [address] [place] [address] [place] [address] PCP - BRADY Physician Brazing Machine Setter 11/02/23 Levy Baryr MD [address] [place] [address] [place] [address] PCP - General Family Medicine 12/20/23 documented as of this encounter
--- OUTSIDE RECORDS SUMMARY | 2025-07-31 12:08 | XMS_ITS | Encounter Summary ---
Author Organization [facility] work ([facility]) Address [address] [place] [address] Care Team Providers Care Fisher Terrapin Name Role Phone Meme Steel MD Primary Care Provider [phone] Pcp, Pcp Primary Care Provider Unavailabl Guadalupe Bardales MD Primary Care Provider [phone] Sena Dominguez Unavailable [phone] Levy Barry MD Primary Care Provider Unavailab le Source Comments The information that you have received may contain highly confidential and/or federally protected health information. This information has been disclosed to you from records protected by [facility]. The [...] error, please contact the sender immediately.[facility] ([facility]) Encounter Details Date Type Department Care Team (Late st Contact Info) Description 2004 Historical Note [facility] [employer] System Devyn Vásquez MD [address] [place] [address] [phone] Social History Tobacco Use Types Packs/Day Years [...] Visit LEATHA CARRILLO - [facility] [address] [facility] [address] [place] [phone] Brenda Clay MD [address] [facility] [address] [place] [address] 04/15/2026 10:00 AM EDT Office Visit LEATHA Primary [facility] at [facility] + [facility] [address] [facility] [address] [place] [address] Sena Dominguez PA [address] [facility] [place] [address] documented as of this encounter Visit Diagnoses Not on filedocumented in this encounter Care Teams Fisher Terrapin Relationship Specialty Start Date End Date Meme Steel MD [address] [place] [address] 105 [place] [address] PCP - General Pediatrics 06/05/18 04/25/22 No Pcp, Pcp PCP - General 06/08/22 07/19/22 Guadalupe Mcbride MD PCP - General Family Medicine 07/20/22 11/01/23 Sena Dominguez PA [address] [place] [address] [place] [address] PCP - BRADY Physician Mat Repairer 11/02/23 Levy Barry MD [address] [place] [address] [place] [address] PCP - General Family Medicine 12/20/23 documented as of this encounter
--- OUTSIDE RECORDS SUMMARY | 2025-07-31 12:08 | XMS_ITS | Encounter Summary ---
Author Organization [facility] work ([facility]) Address [address] [place] [address] Care Team Providers Care Stringer Up Soldering Machine Name Role Phone Meme Steel MD Primary Care Provider [phone] Pcp, Pcp Primary Care Provider Unavailabl Guadalupe Bardales MD Primary Care Provider [phone] Sena Dominguez Unavailable [phone] Levy Barry MD Primary Care Provider Unavailab le Source Comments The information that you have received may contain highly confidential and/or federally protected health information. This information has been disclosed to you from records protected by [facility]. The [...] Contact Info) Description 04/09/2009 Historical Note [facility] USDS System Devyn Vásquez MD [address] [place] [address] [phone] Social History Tobacco Use Types Packs/Day Years [...] Visit LEATHA CARRILLO - [facility] [address] [facility] [address] [place] [phone] Brenda Clay MD [address] [facility] [address] [place] [address] 04/15/2026 10:00 AM EDT Office Visit [facility]ATHA [facility] at [facility] + [facility] [address] [facility] [address] [place] [address] Sena Dominguez PA [address] [facility] [place] [address] documented as of this encounter Visit Diagnoses Not on filedocumented in this encounter Care Teams Stringer Up Soldering Machine Relationship Specialty Start Date End Date Meme Steel MD [address] [place] [address] 105 [place] [address] PCP - General Pediatrics 06/05/18 04/25/22 No Pcp, Pcp PCP - General 06/08/22 07/19/22 Guadalupe Mcbride MD PCP - General Family Medicine 07/20/22 11/01/23 Sena Dominguez PA [address] [place] [address] [place] [address] PCP - BRADY Physician Sheetrock Applicator 11/02/23 Levy Barry MD [address] [place] [address] [place] [address] PCP - General Family Medicine 12/20/23 documented as of this encounter
--- OUTSIDE RECORDS SUMMARY | 2025-07-31 12:08 | XMS_ITS | Encounter Summary ---
Author Organization [facility] work ([facility]) Address [address] [place] [address] Care Team Providers Care Gas Derrick Operator Name Role Phone Meme Steel MD Primary Care Provider [phone] Pcp, Pcp Primary Care Provider Unavailabl Guadalupe Bardales MD Primary Care Provider Sena Dominguez Unavailable [phone] Levy Barry MD Primary Care Provider Unavailab le Source Comments The information that you have received may contain highly confidential and/or federally protected health information. This information has been disclosed to you from records protected by [facility]. The law prohibits you from making [...] the sender immediately.[facility] ([facility]) Encounter Details Date Type Department Care Team (Late st Contact Info) Description 01/07/2016 Historical Note [facility] [employer] System Devny Vásquez MD [address] [place] [address] [phone] Social History Tobacco Use Types Packs/Day Years [...] LEATHA CARRILLO - [facility] [address] [facility] [address] [place] [phone] Brenda Clay MD [address] [facility] [address] [place] [address] 04/15/2026 10:00 AM EDT Office Visit LEATHA [facility] at [facility] + [facility] [address] [facility] [address] [place] [address] Sena Dominguez PA [address] [facility] [place] [address] documented as of this encounter Visit Diagnoses Not on filedocumented in this encounter Care Teams Gas Derrick Operator Relationship Specialty Start Date End Date Meme Steel MD [address] [place] [address] 105 [place] [address] PCP - General Pediatrics 06/05/18 04/25/22 No Pcp, Pcp PCP - General 06/08/22 07/19/22 Guadalupe Mcbride MD PCP - General Family Medicine 07/20/22 11/01/23 Sena Dominguez PA [address] [place] [address] [place] [address] PCP - BRADY Physician Ve Teacher 11/02/23 Levy Barry MD [address] [place] [address] [place] [address] PCP - General Family Medicine 12/20/23 documented as of this encounter
--- OUTSIDE RECORDS SUMMARY | 2025-07-31 12:08 | XMS_ITS | Encounter Summary ---
Author Organization [facility] work ([facility]) Address [address] [place] [address] Care Team Providers Care Sweatband Drummer Name Role Phone Meme Steel MD Primary Care Provider [phone] Pcp, Pcp Primary Care Provider Unavailabl Guadalupe Bardales MD Primary Care Provider [phone] Sena Dominguez Unavailable [phone] Levy Barry MD Primary Care Provider Unavailab le Source Comments The information that you have received may contain highly confidential and/or federally protected health information. This information has been disclosed to you from records protected by [facility]. The law prohibits you from [...] please contact the sender immediately.[facility] ([facility]) Encounter Details Date Type Department Care Team (Late st Contact Info) Description 01/26/2005 Historical Note [facility] Real Savvy System Devyn Vásquez MD [address] [place] [address] [phone] Social History Tobacco Use Types Packs/Day Years [...] LEATHA CARRILLO - [facility] [address] [facility] [address] [place] [phone] Brenda Clay MD [address] [facility] [address] [place] [address] 04/15/2026 10:00 AM EDT Office Visit [facility] [address] [facility] [address] [place] [address] Sena Dominguez PA [address] [facility] [place] [address] documented as of this encounter Visit Diagnoses Not on filedocumented in this encounter Care Teams Sweatband Drummer Relationship Specialty Start Date End Date Meme Steel MD [address] [place] [address] 105 [place] [address] PCP - General Pediatrics 06/05/18 04/25/22 No Pcp, Pcp PCP - General 06/08/22 07/19/22 Guadalupe Mcbride MD PCP - General Family Medicine 07/20/22 11/01/23 Sena Dominguez PA [address] [place] [address] [place] [address] PCP - BRADY Physician Instructor Weaving 11/02/23 Levy Barry MD [address] [place] [address] [place] [address] PCP - General Family Medicine 12/20/23 documented as of this encounter
--- OUTSIDE RECORDS SUMMARY | 2025-07-31 12:08 | XMS_ITS | Encounter Summary ---
Author Organization [facility] work ([facility]) Address [address] [place] [address] Care Team Providers Care Supervisor Bl[employer] Name Role Phone Meme Steel MD Primary Care Provider [phone] Pcp, Pcp Primary Care Provider Unavailabl [place] Bardales MD Primary Care Provider [phone] Sena Dominguez Unavailable [phone] Levy Barry MD Primary Care Provider Unavailab le Source Comments The information that you have received may contain highly confidential and/or federally protected health information. This information has been disclosed to you from records protected by [facility]. The [...] [facility] ([facility]) Encounter Details Date Type Department Care Team (Late st Contact Info) Description 10/06/2015 Historical Note [facility] [email or web address] System Devyn Vásquez MD [address] [place] [address] [phone] Social History Tobacco Use Types Packs/Day Years [...] LEATHA CARRILLO - [facility] [address] [facility] [address] [facility] [address] [place] [phone] Brenda Clay MD [address] [facility] [place] [address] [place] [address] 04/15/2026 10:00 AM EDT Office Visit LEATHA [facility] at [facility] + [facility] [address] [place] [address] Sena Dominguez PA [address] [place] [address] documented as of this encounter Visit Diagnoses Not on filedocumented in this encounter Care Teams Supervisor [employer] Relationship Specialty Start Date End Date Meme Steel MD [address] [place] [address] [place] [address] PCP - General Pediatrics 06/05/18 04/25/22 No Pcp, Pcp PCP - General 06/08/22 07/19/22 Guadalupe Mcbride MD PCP - General Family Medicine 07/20/22 11/01/23 Sena Dominguez PA [address] [place] [address] [place] [address] PCP - BRADY Physician Patient Resource Coordinator 11/02/23 Levy Barry MD [address] [place] [address] [place] [address] PCP - General Family Medicine 12/20/23 documented as of this encounter
--- OUTSIDE RECORDS SUMMARY | 2025-07-31 12:08 | XMS_ITS | Encounter Summary ---
Author Organization [facility] work ([facility]) Address [address] [place] [address] Care Team Providers Care Clinical Informatics Manager Name Role Phone Meme Steel MD Primary Care Provider [phone] Pcp, Pcp Primary Care Provider Unavailabl [place] Bardales MD Primary Care Provider [phone] Sena Dominguez Unavailable [phone] Levy Barry MD Primary Care Provider Unavailab le Source Comments The information that you have received may contain highly confidential and/or federally protected health information. This information has been disclosed to you from records protected by [facility]. The law prohibits you from [...] error, please contact the sender immediately.[facility] ([facility]) Encounter Details Date Type Department Care Team (Late st Contact Info) Description 08/06/2009 Historical Note [facility] [employer] System Devyn Vásquez MD [address] [place] [address] [phone] Social History Tobacco Use Types Packs/Day Years [...] LEATHA CARRILLO - [facility] [address] [facility] [address] [place] [phone] Brenda Clay MD [address] [facility] [place] [address] [place] [address] 04/15/2026 10:00 AM EDT Office Visit LEATHA Primary Care at [facility] + [facility] [address] [facility] [place] [address] Sena Dominguez PA [address] [facility] [facility] [place] [address] documented as of this encounter Visit Diagnoses Not on filedocumented in this encounter Care Teams Clinical Informatics Manager Relationship Specialty Start Date End Date Meme Steel MD [address] [place] [address] 105 [place] [address] PCP - General Pediatrics 06/05/18 04/25/22 No Pcp, Pcp PCP - General 06/08/22 07/19/22 [place] Mcbride MD PCP - General Family Medicine 07/20/22 11/01/23 Sena Dominguez PA [address] [place] [address] [place] [address] PCP - BRADY Physician Preschool Principal 11/02/23 Levy Barry MD [address] [place] [address] [place] [address] PCP - General Family Medicine 12/20/23 documented as of this encounter
--- OUTSIDE RECORDS SUMMARY | 2025-07-31 12:08 | XMS_ITS | Encounter Summary ---
Author Organization [facility] work ([facility]) Address [address] [place] [address] Care Team Providers Care Book Binder Name Role Phone Meme Steel MD Primary Care Provider [phone] No Pcp, Pcp Primary Care Provider Unavailabl [place] Bardales MD Primary Care Provider [phone] Sena Dominguez Unavailable [phone] Levy Barry MD Primary Care Provider Unavailab le Source Comments The information that you have received may contain highly confidential and/or federally protected health information. This information has been disclosed to you from records protected by [facility]. The law prohibits [...] contact the sender immediately.[facility] ([facility]) Encounter Details Date Type Department Care Team (Late st Contact Info) Description 01/07/2016 Historical Note [facility] [employer] System Devyn Vásquez MD [address] [place] [address] [phone] Social History Tobacco Use Types Packs/Day Years [...] CARRILLO - [facility] [address] [facility] [address] [place] [phone] Brenda Clay MD [address] [facility] [place] [address] [place] [address] 04/15/2026 10:00 AM EDT Office Visit LEATHA [facility] at [facility] + [facility] [address] [facility] [place] [address] Sena Dominguez PA [address] [facility] [place] [address] documented as of this encounter Visit Diagnoses Not on filedocumented in this encounter Care Teams Book Binder Relationship Specialty Start Date End Date Meme Steel MD [address] [place] [address] 105 [place] [address] PCP - General Pediatrics 06/05/18 04/25/22 No Pcp, Pcp PCP - General 06/08/22 07/19/22 [place] Mcbride MD PCP - General Family Medicine 07/20/22 11/01/23 Sena Dominguez PA [address] [place] [address] [place] [address] PCP - BRADY Physician Recreational Programs Director 11/02/23 Levy Barry MD [address] [place] [address] [place] [address] PCP - General Family Medicine 12/20/23 documented as of this encounter
--- OUTSIDE RECORDS SUMMARY | 2025-07-31 12:08 | XMS_ITS | Encounter Summary ---
Author Organization [facility] work ([facility]) Address [address] [place] [address] Care Team Providers Care Lab Technician Name Role Phone Meme Steel MD Primary Care Provider [phone] Pcp, Pcp Primary Care Provider Unavailabl [place] Bardales MD Primary Care Provider [phone] Sena Dominguez Unavailable Levy Barry MD Primary Care Provider Unavailab le Source Comments The information that you have received may contain highly confidential and/or federally protected health information. This information has been disclosed to you from records protected by [facility]. The law prohibits you from [...] immediately.[facility] ([facility]) Encounter Details Date Type Department Care Team (Late st Contact Info) Description 01/04/2008 Historical Note [facility] [employer] System Devyn Vásquez MD [address] [place] [address] [id number] Social History Tobacco Use Types Packs/Day Years [...] - Located [facility] [address] [facility] [address] [place] [phone] Brenda Clay MD [address] [facility] [place] [address] [place] [address] 04/15/2026 10:00 AM EDT Office Visit LEATHA Primary [facility] at [facility] + [facility] [address] [facility] [address] [facility] [address] [place] [address] Sena Dominguez PA [address] [facility] [place] [address] documented as of this encounter Visit Diagnoses Not on filedocumented in this encounter Care Teams Lab Technician Relationship Specialty Start Date End Date Meme Steel MD [address] [place] [address] 105 [place] [address] PCP - General Pediatrics 06/05/18 04/25/22 No Pcp, Pcp PCP - General 06/08/22 07/19/22 [place] Mcbride MD PCP - General Family Medicine 07/20/22 11/01/23 Sena Dominguez PA [address] [place] [address] [place] [address] PCP - BRADY Physician Sales Service Technician 11/02/23 Levy Barry MD [address] [place] [address] [place] [address] PCP - General Family Medicine 12/20/23 documented as of this encounter
--- OUTSIDE RECORDS SUMMARY | 2025-07-31 12:08 | XMS_ITS | Encounter Summary ---
Author Organization [facility] work ([facility]) Address [address] [place] [address] Care Team Providers Care Stringed Instrument Repairer Name Role Phone Meme Steel MD Primary Care Provider [phone] Pcp, Pcp Primary Care Provider Unavailabl [place] Bardales MD Primary Care Provider [phone] Sena Dominguez Unavailable [phone] Levy Barry MD Primary Care Provider Unavailab le Source Comments The information that you have received may contain highly confidential and/or federally protected health information. This information has been disclosed to you from records protected by [facility]. The law prohibits you from [...] sender immediately.[facility] ([facility]) Encounter Details Date Type Department Care Team (Late st Contact Info) Description 06/18/2014 Historical Note [facility] [employer] System Devyn Vásquez MD [address] [place] [phone] Social History Tobacco Use Types Packs/Day Years [...] [facility] [address] [facility] [address] [place] [phone] Brenda Clay MD [address] [facility] [place] [address] [place] [address] 04/15/2026 10:00 AM EDT Office Visit LEATHA Primary [facility] at [facility] + [facility] [address] [facility] [address] [place] [address] Sena Dominguez PA [address] [facility] [place] [address] documented as of this encounter Visit Diagnoses Not on filedocumented in this encounter Care Teams Stringed Instrument Repairer Relationship Specialty Start Date End Date Meme Steel MD [address] [place] [address] 105 [place] [address] PCP - General Pediatrics 06/05/18 04/25/22 No Pcp, Pcp PCP - General 06/08/22 07/19/22 [place] Mcbride MD PCP - General Family Medicine 07/20/22 11/01/23 Sena Dominguez PA [address] [place] [address] [place] [address] PCP - BRADY Physician Station Tender 11/02/23 Levy Barry MD [address] [place] [address] [place] [address] PCP - General Family Medicine 12/20/23 documented as of this encounter
--- OUTSIDE RECORDS SUMMARY | 2025-07-31 12:08 | XMS_ITS | Encounter Summary ---
Author Organization [facility] work ([facility]) Address [address] [place] [address] Care Team Providers Care Water Truck Driver Name Role Phone Meme Steel MD Primary Care Provider [phone] Pcp, Pcp Primary Care Provider Unavailabl [place] Bardales MD Primary Care Provider [phone] Sena Dominguez Unavailable [phone] Levy Barry MD Primary Care Provider Unavailab le Source Comments The information that you have received may contain highly confidential and/or federally protected health information. This information has been disclosed to you from records protected by [facility]. The law prohibits you from [...] please contact the sender immediately.[facility] ([facility]) Encounter Details Date Type Department Care Team (Late st Contact Info) Description 04/08/2009 Historical Note [facility] [employer] System Devyn Vásquez MD [address] [place] [address] [phone] Social History Tobacco Use Types Packs/Day Years [...] [facility] [address] [facility] [address] [place] [phone] Brenda Clay MD [address] [facility] [place] [address] [place] [phone] 04/15/2026 10:00 AM EDT Office Visit LEATHA Primary [facility] at [facility] + [facility] [address] [facility] [address] [place] [address] Sena Dominguez PA [address] [facility] [place] [address] documented as of this encounter Visit Diagnoses Not on filedocumented in this encounter Care Teams Water Truck Driver Relationship Specialty Start Date End Date Meme Steel MD [address] [place] [address] [place] [address] PCP - General Pediatrics 06/05/18 04/25/22 No Pcp, Pcp PCP - General 06/08/22 07/19/22 [place] Mcbride MD PCP - General Family Medicine 07/20/22 11/01/23 Sena Dominguez PA [address] [place] [address] [place] [address] PCP - BRADY Physician Prepared Foods Associate 11/02/23 Levy Barry MD [address] [place] [address] [place] [address] PCP - General Family Medicine 12/20/23 documented as of this encounter
--- OUTSIDE RECORDS SUMMARY | 2025-07-31 12:08 | XMS_ITS | Encounter Summary ---
Author Organization [facility] work ([facility]) Address [address] [place] [address] Care Team Providers Care Flatwork Catcher Name Role Phone Meme Steel MD Primary Care Provider [phone] Pcp, Pcp Primary Care Provider Unavailabl [place] Bardales MD Primary Care Provider [phone] Sena Dominguez Unavailable [phone] Levy Barry MD Primary Care Provider Unavailab le Source Comments The information that you have received may contain highly confidential and/or federally protected health information. This information has been disclosed to you from records protected by [facility]. The law prohibits you [...] immediately.[facility] ([facility]) Encounter Details Date Type Department Care Team (Late st Contact Info) Description 01/03/2008 Historical Note [facility] [employer] System Devyn Vásquez MD [address] [place] [address] [phone] Social History Tobacco Use Types Packs/Day Years [...] - [facility] [address] [facility] [address] [place] [phone] Brenda Clay MD [address] [facility] [place] [address] [place] [address] 04/15/2026 10:00 AM EDT Office Visit LEATHA Primary Care at [facility] + [facility] [address] [facility] [address] [place] [address] Sena Dominguez PA [address] [facility] [place] [address] documented as of this encounter Visit Diagnoses Not on filedocumented in this encounter Care Teams Flatwork Catcher Relationship Specialty Start Date End Date Meme Steel MD [address] [place] [address] 105 [place] [address] PCP - General Pediatrics 06/05/18 04/25/22 No Pcp, Pcp PCP - General 06/08/22 07/19/22 Guadalupe Mcbride MD PCP - General Family Medicine 07/20/22 11/01/23 Sena Dominguez PA [address] [place] [address] [place] [address] PCP - BRADY Physician Rn Admit 11/02/23 Levy Barry MD [address] [place] [address] [place] [address] PCP - General Family Medicine 12/20/23 documented as of this encounter
--- OUTSIDE RECORDS SUMMARY | 2025-07-31 12:09 | XMS_ITS | Encounter Summary ---
Author Organization [facility] work ([facility]) Address [address] [place] [address] Care Team Providers Care Appliance Technician Name Role Phone Meme Steel MD Primary Care Provider [phone] Pcp, Pcp Primary Care Provider Unavailabl [place] Bardales MD Primary Care Provider [phone] Sena Dominguez Unavailable [phone] Levy Barry MD Primary Care Provider Unavailab le Source Comments The information that you have received may contain highly confidential and/or federally protected health information. This information has been disclosed to you from records protected by [facility]. The law prohibits you [...] contact the sender immediately.[facility] ([facility]) Encounter Details Date Type Department Care Team (Late st Contact Info) Description 08/14/2013 Historical Note [facility] [employer] System Devyn Vásquez MD [address] [place] [address] [phone] Social History Tobacco Use Types Packs/Day Years [...] LEATHA CARRILLO - [facility] [address] [facility] [address] [place] [phone] Brenda Clay MD [address] [facility] [place] [address] [place] [address] 04/15/2026 10:00 AM EDT Office Visit LEATHA Primary [facility] at [facility] + [facility] [address] [facility] [address] [place] [address] Sena Dominguez PA [address] [facility] [place] [address] documented as of this encounter Visit Diagnoses Not on filedocumented in this encounter Care Teams Appliance Technician Relationship Specialty Start Date End Date Meme Steel MD [address] [place] [address] 105 [place] [address] PCP - General Pediatrics 06/05/18 04/25/22 No Pcp, Pcp PCP - General 06/08/22 07/19/22 Guadalupe Mcbride MD PCP - General Family Medicine 07/20/22 11/01/23 Sena Dominguez PA [address] [place] [address] [place] [address] PCP - BRADY Physician Felt Checker 11/02/23 Levy Barry MD [address] [place] [address] [place] [address] PCP - General Family Medicine 12/20/23 documented as of this encounter
--- OUTSIDE RECORDS SUMMARY | 2025-07-31 12:09 | XMS_ITS | Encounter Summary ---
Author Organization [facility] work ([facility]) Address [address] [place] [address] Care Team Providers Care Qa Internship Name Role Phone Meme Steel MD Primary Care Provider [phone] No Pcp, Pcp Primary Care Provider Unavailabl [place] Bardales MD Primary Care Provider [phone] Sena Dominguez Unavailable [phone] Levy Barry MD Primary Care Provider Unavailab le Source Comments The information that you have received may contain highly confidential and/or federally protected health information. This information has been disclosed to you from records protected by [facility]. The law prohibits [...] please contact the sender immediately.[facility] ([facility]) Encounter Details Date Type Department Care Team (Late st Contact Info) Description 01/01/2008 Historical Note [facility] System Devyn Vásquez MD [address] [place] [address] [phone] Social History Tobacco Use Types Packs/Day Years [...] CARRILLO - [facility] [address] [facility] [address] [place] [phone] Brenda Clay MD [address] [facility] [place] [address] [place] [address] 04/15/2026 10:00 AM EDT Office Visit LEATHA Primary [facility] at [facility] [address] [facility] [address] [place] [address] Sena Dominguez PA [address] [facility] [place] [address] documented as of this encounter Visit Diagnoses Not on filedocumented in this encounter Care Teams Qa Internship Relationship Specialty Start Date End Date Meme Steel MD [address] [place] [address] 105 [place] [address] PCP - General Pediatrics 06/05/18 04/25/22 No Pcp, Pcp PCP - General 06/08/22 07/19/22 Guadalupe Mcbride MD PCP - General Family Medicine 07/20/22 11/01/23 Sena Dominguez PA [address] [place] [address] [place] [address] PCP - BRADY Physician Van Driver 11/02/23 Levy Barry MD [address] [place] [address] [place] [address] PCP - General Family Medicine 12/20/23 documented as of this encounter
--- OUTSIDE RECORDS SUMMARY | 2025-07-31 12:09 | XMS_ITS | Encounter Summary ---
Author Organization [facility] work ([facility]) Address [address] [place] [address] Care Team Providers Care Underwear Cutter Name Role Phone Meme Steel MD Primary Care Provider [phone] No Pcp, Pcp Primary Care Provider Unavailabl Guadalupe Bardales MD Primary Care Provider [phone] Sena Dominguez Unavailable Levy Barry MD Primary Care Provider Unavailab le Source Comments The information that you have received may contain highly confidential and/or federally protected health information. This information has been disclosed to you from records protected by [facility]. The law [...] error, please contact the sender immediately.[facility] ([facility]) Encounter Details Date Type Department Care Team (Late st Contact Info) Description 06/06/2008 Historical Note [facility] [employer] [facility] System Devyn Vásquez MD [address] [place] [address] [phone] Social History Tobacco Use Types Packs/Day Years [...] CARRILLO - [facility] [address] [facility] [address] [place] [phone] Brenda Clay MD [address] [place] [facility] [place] [address] [place] [address] 04/15/2026 10:00 AM EDT Office Visit LEATHA [facility] [address] [facility] [address] [place] [address] Sena Dominguez PA [address] [facility] [place] [address] documented as of this encounter Visit Diagnoses Not on filedocumented in this encounter Care Teams Underwear Cutter Relationship Specialty Start Date End Date Meme Steel MD [address] [place] [address] 105 [place] [address] PCP - General Pediatrics 06/05/18 04/25/22 No Pcp, Pcp PCP - General 06/08/22 07/19/22 Guadalupe Mcbride MD PCP - General Family Medicine 07/20/22 11/01/23 Sena Dominguez PA [address] [place] [address] [place] [address] PCP - BRADY Physician Exhibition Organiser 11/02/23 Levy Barry MD [address] [place] [address] [place] [address] PCP - General Family Medicine 12/20/23 documented as of this encounter
--- OUTSIDE RECORDS SUMMARY | 2025-07-31 12:09 | XMS_ITS | Encounter Summary ---
Author Organization [facility] work ([facility]) Address [address] [facility] [address] [place] [address] Care Team Providers Care Chemical Process Analyst Name Role Phone Meme Steel MD Primary Care Provider [phone] Pcp, Pcp Primary Care Provider Unavailabl Guadalupe Bardales MD Primary Care Provider [phone] Sena Dominguez Unavailable [phone] Levy Barry MD Primary Care Provider Unavailab le Source Comments The information that you have received may contain highly confidential and/or federally protected health information. This information has been disclosed to you from records protected by [facility]. The law prohibits you from making [...] contact the sender immediately.[facility] ([facility]) Encounter Details Date Type Department Care Team (Late st Contact Info) Description 11/07/2014 Historical Note [facility] [place] [facility] 911 System Devyn Vásquez MD [address] [place] [address] [phone] Social History Tobacco Use Types Packs/Day Years [...] LEATHA CARRILLO - [facility] [address] [facility] [address] [place] [phone] Brenda Clay MD [address] [facility] [address] [place] [phone] 04/15/2026 10:00 AM EDT Office Visit [facility] [address] [facility] [address] [place] [address] Sena Dominguez PA [address] [facility] [place] [address] documented as of this encounter Visit Diagnoses Not on filedocumented in this encounter Care Teams Chemical Process Analyst Relationship Specialty Start Date End Date Meme Steel MD [address] [place] [address] [place] [address] PCP - General Pediatrics 06/05/18 04/25/22 No Pcp, Pcp PCP - General 06/08/22 07/19/22 Guadalupe Mcbride MD PCP - General Family Medicine 07/20/22 11/01/23 Sena Dominguez PA [address] [place] [address] [place] [address] PCP - BRADY Physician Facer Operator 11/02/23 Levy Barry MD [address] [place] [address] [place] [address] PCP - General Family Medicine 12/20/23 documented as of this encounter
--- OUTSIDE RECORDS SUMMARY | 2025-07-31 12:09 | XMS_ITS | Encounter Summary ---
Author Organization [facility] work ([facility]) Address [address] [facility] [address] [place] [address] Care Team Providers Care Clam Treader Name Role Phone Meme Steel MD Primary Care Provider [phone] Pcp, Pcp Primary Care Provider Unavailabl Guadalupe Bardales MD Primary Care Provider [phone] Sena Dominguez Unavailable [phone] Levy Barry MD Primary Care Provider Unavailab le Source Comments The information that you have received may contain highly confidential and/or federally protected health information. This information has been disclosed to you from records protected by [facility]. The law prohibits you from [...] contact the sender immediately.[facility] ([facility]) Encounter Details Date Type Department Care Team (Late st Contact Info) Description 10/07/2014 Historical Note [facility] Netadmin System Devyn Vásquez MD [address] [place] [address] [phone] Social History Tobacco Use Types Packs/Day Years [...] CARRILLO - [facility] [address] [facility] [address] [place] [phone] Brenda Clay MD [address] [facility] [address] [place] [phone] 04/15/2026 10:00 AM EDT Office Visit [facility] + [facility] [address] [facility] [address] [place] [address] Sena Dominguez PA [address] [facility] [place] [address] documented as of this encounter Visit Diagnoses Not on filedocumented in this encounter Care Teams Clam Treader Relationship Specialty Start Date End Date Meme Steel MD [address] [place] [address] 105 [place] [address] PCP - General Pediatrics 06/05/18 04/25/22 No Pcp, Pcp PCP - General 06/08/22 07/19/22 Guadalupe Mcbride MD PCP - General Family Medicine 07/20/22 11/01/23 Sena Dominguez PA [address] [place] [address] [place] [address] PCP - BRADY Physician Campus Ambassador 11/02/23 Levy Barry MD [address] [place] [address] [place] [address] PCP - General Family Medicine 12/20/23 documented as of this encounter
--- OUTSIDE RECORDS SUMMARY | 2025-07-31 12:09 | XMS_ITS | Encounter Summary ---
Author Organization [facility] work ([facility]) Address [address] [address] [place] [address] Care Team Providers Care Engineer Assistant Name Role Phone Meme Steel MD Primary Care Provider [phone] Pcp, Pcp Primary Care Provider Unavailabl Guadalupe Bardales MD Primary Care Provider [phone] Sena Dominguez Unavailable [phone] Levy Barry MD Primary Care Provider Unavailab le Source Comments The information that you have received may contain highly confidential and/or federally protected health information. This information has been disclosed to you from records protected by [facility]. The law prohibits you from [...] the sender immediately.[facility] ([facility]) Encounter Details Date Type Department Care Team (Late st Contact Info) Description 10/02/2007 Historical Note [facility] [employer] System Devyn Vásquez MD [address] [place] [address] [phone] Social History Tobacco Use Types Packs/Day Years [...] LEATHA CARRILLO - [facility] [address] [facility] [address] [place] [phone] Brenda Clay MD [address] [facility] [address] [place] [address] 04/15/2026 10:00 AM EDT Office Visit [facility] [address] [facility] [address] [place] [address] Sena Dominguez PA [address] [facility] [place] [address] documented as of this encounter Visit Diagnoses Not on filedocumented in this encounter Care Teams Engineer Assistant Relationship Specialty Start Date End Date Meme Steel MD [address] [place] [address] 105 [place] [address] PCP - General Pediatrics 06/05/18 04/25/22 No Pcp, Pcp PCP - General 06/08/22 07/19/22 Guadalupe Mcbride MD PCP - General Family Medicine 07/20/22 11/01/23 Sena Dominguez PA [address] [place] [address] [place] [address] PCP - BRADY Physician Property And Supply Officer 11/02/23 Levy Barry MD [address] [place] [address] [place] [address] PCP - General Family Medicine 12/20/23 documented as of this encounter
--- OUTSIDE RECORDS SUMMARY | 2025-07-31 12:09 | XMS_ITS | Encounter Summary ---
Author Organization [facility] work ([facility]) Address [address] [facility] [address] [place] [address] Care Team Providers Care Sports Anchor Name Role Phone Meme Steel MD Primary Care Provider [phone] Pcp, Pcp Primary Care Provider Unavailabl Guadalupe Bardales MD Primary Care Provider [phone] Sena Dominguez Unavailable [phone] Levy Barry MD Primary Care Provider Unavailab le Source Comments The information that you have received may contain highly confidential and/or federally protected health information. This information has been disclosed to you from records protected by [facility]. The law prohibits you [...] contact the sender immediately.[facility] ([facility]) Encounter Details Date Type Department Care Team (Late st Contact Info) Description 01/04/2008 Historical Note [facility] Oppex System Devyn Vásquez MD [address] [place] [address] [phone] Social History Tobacco Use Types Packs/Day Years [...] Visit LEATHA CARRILLO - [facility] [address] [facility] [address] [place] [phone] Brenda Clay MD [address] [facility] [address] [place] [address] 04/15/2026 10:00 AM EDT Office Visit [facility] at [facility] + [facility] [address] [facility] [address] [place] [address] Sena Dominguez PA [address] [facility] [place] [address] documented as of this encounter Visit Diagnoses Not on filedocumented in this encounter Care Teams Sports Anchor Relationship Specialty Start Date End Date Meme Steel MD [address] [place] [address] 105 [place] [address] PCP - General Pediatrics 06/05/18 04/25/22 No Pcp, Pcp PCP - General 06/08/22 07/19/22 Guadalupe Mcbride MD PCP - General Family Medicine 07/20/22 11/01/23 Sena Dominguez PA [address] [place] [address] [place] [address] PCP - BRADY Physician Retail Department Supervisor 11/02/23 Levy Barry MD [address] [place] [address] [place] [address] PCP - General Family Medicine 12/20/23 documented as of this encounter
--- OUTSIDE RECORDS SUMMARY | 2025-07-31 12:09 | XMS_ITS | Encounter Summary ---
Author Organization [facility] work ([facility]) Address [address] [facility] [facility] [address] [place] [address] Care Team Providers Care Hotel Valet Attendant Name Role Phone Meme Steel MD Primary Care Provider [phone] Pcp, Pcp Primary Care Provider Unavailabl Guadalupe Bardales MD Primary Care Provider [phone] Sena Dominguez Unavailable Levy Barry MD Primary Care Provider Unavailab le Source Comments The information that you have received may contain highly confidential and/or federally protected health information. This information has been disclosed to you from records protected by [facility]. The law prohibits you [...] [facility] ([facility]) Encounter Details Date Type Department Care Team (Late st Contact Info) Description 01/14/2013 Historical Note [facility] [employer] System Devyn Vásquez MD [address] [place] [address] [phone] Social History Tobacco Use Types Packs/Day Years [...] CARRILLO - [facility] [address] [facility] [address] [place] [phone] Brenda Clay MD [address] [facility] [address] [place] [phone] 04/15/2026 10:00 AM EDT Office Visit [facility] + [facility] [address] [facility] [address] [place] [address] Sena Dominguez PA [address] [facility] [place] [address] documented as of this encounter Visit Diagnoses Not on filedocumented in this encounter Care Teams Hotel Valet Attendant Relationship Specialty Start Date End Date Meme Steel MD [address] [place] [address] 105 [place] [address] PCP - General Pediatrics 06/05/18 04/25/22 No Pcp, Pcp PCP - General 06/08/22 07/19/22 Guadalupe Mcbride MD PCP - General Family Medicine 07/20/22 11/01/23 Sena Dominguez PA [address] [place] [address] [place] [address] PCP - BRADY Physician Lead Applications Developer 11/02/23 Levy Barry MD [address] [place] [address] [place] [address] PCP - General Family Medicine 12/20/23 documented as of this encounter
--- OUTSIDE RECORDS SUMMARY | 2025-07-31 12:09 | XMS_ITS | Encounter Summary ---
Author Organization [facility] work ([facility]) Address [address] [facility] [address] [place] [address] Care Team Providers Care Audiovisual Equipment Operator Name Role Phone Meme Steel MD Primary Care Provider [phone] Pcp, Pcp Primary Care Provider Unavailabl Guadalupe Bardales MD Primary Care Provider [phone] Sena Dominguez Unavailable [phone] Levy Barry MD Primary Care Provider Unavailab le Source Comments The information that you have received may contain highly confidential and/or federally protected health information. This information has been disclosed to you from records protected by [facility]. The law prohibits you from making [...] contact the sender immediately.[facility] ([facility]) Encounter Details Date Type Department Care Team (Late st Contact Info) Description 08/13/2013 Historical Note [facility] Colppy System Devyn Vásquez MD [address] [place] [address] [phone] Social History Tobacco Use Types Packs/Day Years [...] [facility] [address] [facility] [address] [place] [phone] Brenda Clay MD [address] [facility] [address] [place] [address] 04/15/2026 10:00 AM EDT Office Visit [facility] [address] [facility] [address] [place] [address] Sena Dominguez PA [address] [facility] [place] [address] documented as of this encounter Visit Diagnoses Not on filedocumented in this encounter Care Teams Audiovisual Equipment Operator Relationship Specialty Start Date End Date Meme Steel MD [address] [place] [address] 105 [place] [address] PCP - General Pediatrics 06/05/18 04/25/22 No Pcp, Pcp PCP - General 06/08/22 07/19/22 Guadalupe Mcbride MD PCP - General Family Medicine 07/20/22 11/01/23 Sena Dominguez PA [address] [place] [address] [place] [address] PCP - BRADY Physician Form Presser 11/02/23 Levy Barry MD [address] [place] [address] [place] [address] PCP - General Family Medicine 12/20/23 documented as of this encounter
--- OUTSIDE RECORDS SUMMARY | 2025-07-31 12:09 | XMS_ITS | Encounter Summary ---
Author Organization [facility] work ([facility]) Address [address] [place] [address] Care Team Providers Care Director Clinical Research Name Role Phone Meme Steel MD Primary Care Provider [phone] Pcp, Pcp Primary Care Provider Unavailabl Guadalupe Bardales MD Primary Care Provider Sena Dominguez Unavailable [phone] Levy Barry MD Primary Care Provider Unavailab le Source Comments The information that you have received may contain highly confidential and/or federally protected health information. This information has been disclosed to you from records protected by [facility]. The law prohibits you [...] the sender immediately.[facility] ([facility]) Encounter Details Date Type Department Care Team (Late st Contact Info) Description 08/21/2014 Historical Note [facility] Ev[employer] System Devyn Vásquez MD [address] [place] [address] [phone] Social History Tobacco Use Types Packs/Day Years [...] - [facility] [address] [facility] [address] [place] [phone] Brenda Clay MD [address] [facility] [address] [place] [phone] 04/15/2026 10:00 AM EDT Office Visit LE[facility]HA [facility] + [facility] [address] [facility] [address] [place] [address] Sena Dominguez PA [address] [facility] [place] [address] documented as of this encounter Visit Diagnoses Not on filedocumented in this encounter Care Teams Director Clinical Research Relationship Specialty Start Date End Date Meme Steel MD [address] [place] [address] 105 [place] [address] PCP - General Pediatrics 06/05/18 04/25/22 No Pcp, Pcp PCP - General 06/08/22 07/19/22 Guadalupe Mcbride MD PCP - General Family Medicine 07/20/22 11/01/23 Sena Dominguez PA [address] [place] [address] [place] [address] PCP - BRADY Physician Green Building Architect 11/02/23 Levy Barry MD [address] [place] [address] [place] [address] PCP - General Family Medicine 12/20/23 documented as of this encounter
--- OUTSIDE RECORDS SUMMARY | 2025-07-31 12:09 | XMS_ITS | Encounter Summary ---
Author Organization [facility] work ([facility]) Address [address] [facility] [address] [place] [address] Care Team Providers Care Radial Drill Press Operator Name Role Phone Meme Steel MD Primary Care Provider [phone] Pcp, Pcp Primary Care Provider Unavailabl Guadalupe Bardales MD Primary Care Provider [phone] Sena Dominguez Unavailable [phone] Levy Barry MD Primary Care Provider Unavailab le Source Comments The information that you have received may contain highly confidential and/or federally protected health information. This information has been disclosed to you from records protected by [facility]. The law prohibits you [...] please contact the sender immediately.[facility] ([facility]) Encounter Details Date Type Department Care Team (Late st Contact Info) Description 11/26/2007 Historical Note [facility] WishGenie System Devyn Vásquez MD [address] [place] [address] [phone] Social History Tobacco Use Types Packs/Day Years [...] LEATHA CARRILLO - [facility] [address] [facility] [address] [place] [phone] Brenda Clay MD [address] [facility] [address] [place] [address] 04/15/2026 10:00 AM EDT Office Visit LEATHA [facility] at [facility] [address] [facility] [address] [place] [address] Sena Dominguez PA [address] [facility] [place] [address] documented as of this encounter Visit Diagnoses Not on filedocumented in this encounter Care Teams Radial Drill Press Operator Relationship Specialty Start Date End Date Meme Steel MD [address] [place] [address] 105 [place] [address] PCP - General Pediatrics 06/05/18 04/25/22 No Pcp, Pcp PCP - General 06/08/22 07/19/22 Guadalupe Mcbride MD PCP - General Family Medicine 07/20/22 11/01/23 Sena Dominguez PA [address] [place] [address] [place] [address] PCP - BRADY Physician Supervisor Dock 11/02/23 Levy Barry MD [address] [place] [address] [place] [address] PCP - General Family Medicine 12/20/23 documented as of this encounter
--- OUTSIDE RECORDS SUMMARY | 2025-07-31 12:09 | XMS_ITS | Encounter Summary ---
Author Organization [facility] work ([facility]) Address [address] [facility] [address] [place] [address] Care Team Providers Care Recycling Program Manager Name Role Phone Meme Steel MD Primary Care Provider [phone] Pcp, Pcp Primary Care Provider Unavailabl Guadalupe Bardales MD Primary Care Provider [phone] Sena Dominguez Unavailable [phone] Levy Barry MD Primary Care Provider Unavailab le Source Comments The information that you have received may contain highly confidential and/or federally protected health information. This information has been disclosed to you from records protected by [facility]. The law prohibits you from making [...] please contact the sender immediately.[facility] ([facility]) Encounter Details Date Type Department Care Team (Late st Contact Info) Description 08/21/2014 Historical Note [facility] [place] System Devyn Vásquez MD [address] [place] [address] [phone] Social History Tobacco Use Types Packs/Day Years [...] - [facility] [address] [facility] [address] [place] [phone] Brenda Clay MD [address] [facility] [address] [place] [phone] 04/15/2026 10:00 AM EDT Office Visit LE[facility]HA [facility] + [facility] [address] [facility] [address] [place] [address] Sena Dominguez PA [address] [facility] [place] [address] documented as of this encounter Visit Diagnoses Not on filedocumented in this encounter Care Teams Recycling Program Manager Relationship Specialty Start Date End Date Meme Steel MD [address] [place] [address] 105 [place] [address] PCP - General Pediatrics 06/05/18 04/25/22 No Pcp, Pcp PCP - General 06/08/22 07/19/22 Guadalupe Mcbride MD PCP - General Family Medicine 07/20/22 11/01/23 Sena Dominguez PA [address] [place] [address] [place] [address] PCP - BRADY Physician Balance And Hairspring Assembler 11/02/23 Levy Barry MD [address] [place] [address] [place] [address] PCP - General Family Medicine 12/20/23 documented as of this encounter
--- OUTSIDE RECORDS SUMMARY | 2025-07-31 12:09 | XMS_ITS | Encounter Summary ---
Author Organization [facility] work ([facility]) Address [address] [facility] [address] [place] [address] Care Team Providers Care Civil Engineering Designer Name Role Phone Meme Steel MD Primary Care Provider [phone] Pcp, Pcp Primary Care Provider Unavailabl Guadalupe Bardales MD Primary Care Provider [phone] Sena Dominguez Unavailable [phone] Levy Barry MD Primary Care Provider Unavailab le Source Comments The information that you have received may contain highly confidential and/or federally protected health information. This information has been disclosed to you from records protected by [facility]. The law prohibits [...] contact the sender immediately.[facility] ([facility]) Encounter Details Date Type Department Care Team (Late st Contact Info) Description 05/14/2013 Historical Note [facility] GMI Ratings System Devyn Vásquez MD [address] [place] [address] [phone] Social History Tobacco Use Types Packs/Day Years [...] Visit LEATHA CARRILLO - [facility] [address] [facility] [address] [place] [phone] Brenda Clay MD [address] [facility] [address] [place] [address] 04/15/2026 10:00 AM EDT Office Visit LE[facility]HA [facility] [address] [facility] [address] [place] [address] Sena Dominguez PA [address] [facility] [place] [address] documented as of this encounter Visit Diagnoses Not on filedocumented in this encounter Care Teams Civil Engineering Designer Relationship Specialty Start Date End Date Meme Steel MD [address] [place] [address] 105 [place] [address] PCP - General Pediatrics 06/05/18 04/25/22 No Pcp, Pcp PCP - General 06/08/22 07/19/22 Guadalupe Mcbride MD PCP - General Family Medicine 07/20/22 11/01/23 Sena Dominguez PA [address] [place] [address] [place] [address] PCP - BRADY Physician Top Case Assembler 11/02/23 Levy Barry MD [address] [place] [address] [place] [address] PCP - General Family Medicine 12/20/23 documented as of this encounter
--- OUTSIDE RECORDS SUMMARY | 2025-07-31 12:09 | XMS_ITS | Encounter Summary ---
Author Organization [facility] work ([facility]) Address [address] [place] [address] Care Team Providers Care Temporary Help Agency Referral Clerk Name Role Phone Meme Steel MD Primary Care Provider [phone] Pcp, Pcp Primary Care Provider Unavailabl Guadalupe Bardales MD Primary Care Provider [phone] Sena Dominguez Unavailable [phone] Levy Barry MD Primary Care Provider Unavailab le Source Comments The information that you have received may contain highly confidential and/or federally protected health information. This information has been disclosed to you from records protected by [facility]. The law prohibits you [...] the sender immediately.[facility] ([facility]) Encounter Details Date Type Department Care Team (Late st Contact Info) Description 08/13/2013 Historical Note [facility] [employer] System Devyn Vásquez MD [address] [place] [address] [phone] Social History Tobacco Use Types Packs/Day Years [...] LEATHA CARRILLO - [facility] [address] [place] [phone] Brenda Clay MD [address] [facility] [address] [place] [address] 04/15/2026 10:00 AM EDT Office Visit [facility] [address] [place] [address] Sena Dominguez PA [address] [place] [address] documented as of this encounter Visit Diagnoses Not on filedocumented in this encounter Care Teams Temporary Help Agency Referral Clerk Relationship Specialty Start Date End Date Meme Steel MD [address] [place] [address] 105 [place] [address] PCP - General Pediatrics 06/05/18 04/25/22 No Pcp, Pcp PCP - General 06/08/22 07/19/22 Guadalupe Mcbride MD PCP - General Family Medicine 07/20/22 11/01/23 Sena Dominguez PA [address] [place] [address] [place] [address] PCP - BRADY Physician Payment Poster 11/02/23 Levy Barry MD [address] [place] [address] [place] [address] PCP - General Family Medicine 12/20/23 documented as of this encounter
--- OUTSIDE RECORDS SUMMARY | 2025-07-31 12:09 | XMS_ITS | Encounter Summary ---
Author Organization [facility] work ([facility]) Address [address] [place] [address] Care Team Providers Care Radio Technician Name Role Phone Meme Steel MD Primary Care Provider [phone] Pcp, Pcp Primary Care Provider Unavailabl Guadalupe Bardales MD Primary Care Provider [phone] Sena Dominguez Unavailable [phone] Levy Barry MD Primary Care Provider Unavailab le Source Comments The information that you have received may contain highly confidential and/or federally protected health information. This information has been disclosed to you from records protected by [facility]. The law prohibits you from [...] the sender immediately.[facility] ([facility]) Encounter Details Date Type Department Care Team (Late st Contact Info) Description 06/16/2014 Historical Note [facility] [employer] System Devyn Vásquez MD [address] [place] [address] [phone] Social History Tobacco Use Types Packs/Day Years [...] LEATHA CARRILLO - [facility] [address] [facility] [address] [place] [phone] Brenda Clay MD [address] [facility] [address] [place] [address] 04/15/2026 10:00 AM EDT Office Visit [facility] at [facility] + [facility] [address] [place] [address] Sena Dominguez PA [address] [facility] [place] [address] documented as of this encounter Visit Diagnoses Not on filedocumented in this encounter Care Teams Radio Technician Relationship Specialty Start Date End Date Meme Steel MD [address] [place] [address] 105 [place] [address] PCP - General Pediatrics 06/05/18 04/25/22 No Pcp, Pcp PCP - General 06/08/22 07/19/22 Guadalupe Mcbride MD PCP - General Family Medicine 07/20/22 11/01/23 Sena Dominguez PA [address] [place] [address] [place] [address] PCP - BRADY Physician Instrument Maker And Repairer 11/02/23 Levy Barry MD [address] [place] [address] [place] [address] PCP - General Family Medicine 12/20/23 documented as of this encounter
--- OUTSIDE RECORDS SUMMARY | 2025-07-31 12:09 | XMS_ITS | Encounter Summary ---
Author Organization [facility] work ([facility]) Address [address] [place] [address] Care Team Providers Care Cellar Pumper Name Role Phone Meme Steel MD Primary Care Provider [phone] Pcp, Pcp Primary Care Provider Unavailabl Guadalupe Bardales MD Primary Care Provider [phone] Sena Dominguez Unavailable [phone] Levy Barry MD Primary Care Provider Unavailab le Source Comments The information that you have received may contain highly confidential and/or federally protected health information. This information has been disclosed to you from records protected by [facility]. The law prohibits you [...] please contact the sender immediately.[facility] ([facility]) Encounter Details Date Type Department Care Team (Late st Contact Info) Description 11/18/2014 Historical Note [facility] [employer] System Devyn Vásquez MD [address] [place] [address] [phone] Social History Tobacco Use Types Packs/Day Years [...] CARRILLO - [facility] [address] [facility] [address] [place] [phone] Brenda Clay MD [address] [facility] [address] [place] [address] 04/15/2026 10:00 AM EDT Office Visit [facility] at [facility] [address] [place] [address] Sena Dominguez PA [address] [facility] [place] [address] documented as of this encounter Visit Diagnoses Not on filedocumented in this encounter Care Teams Cellar Pumper Relationship Specialty Start Date End Date Meme Steel MD [address] [place] [address] 105 [place] [address] PCP - General Pediatrics 06/05/18 04/25/22 No Pcp, Pcp PCP - General 06/08/22 07/19/22 Guadalupe Mcbride MD PCP - General Family Medicine 07/20/22 11/01/23 Sena Dominguez PA [address] [place] [address] [place] [address] PCP - BRADY Physician Advanced Manufacturing Engineer 11/02/23 Levy Barry MD [address] [place] [address] [place] [address] PCP - General Family Medicine 12/20/23 documented as of this encounter
--- OUTSIDE RECORDS SUMMARY | 2025-07-31 12:09 | XMS_ITS | Encounter Summary ---
Author Organization [facility] work ([facility]) Address [address] [place] [address] Care Team Providers Care Cyber Policy And Strategy Planner Name Role Phone Meme Steel MD Primary Care Provider [phone] No Pcp, Pcp Primary Care Provider Unavailabl Guadalupe Bardales MD Primary Care Provider [phone] Sena Dominguez Unavailable [phone] Levy Barry MD Primary Care Provider Unavailab le Source Comments The information that you have received may contain highly confidential and/or federally protected health information. This information has been disclosed to you from records protected by [facility]. The law prohibits you from [...] please contact the sender immediately.[facility] ([facility]) Encounter Details Date Type Department Care Team (Late st Contact Info) Description 11/25/2014 Historical Note [facility] [employer] System Devyn Vásquez MD [address] [place] [address] [phone] Social History Tobacco Use Types Packs/Day Years [...] LEATHA CARRILLO - [facility] [address] [facility] [address] [place] [phone] Brenda Clay MD [address] [facility] [address] [place] [address] 04/15/2026 10:00 AM EDT Office Visit [facility] at [facility] + [facility] [address] [place] [address] Sena Dominguez PA [address] [facility] [place] [address] documented as of this encounter Visit Diagnoses Not on filedocumented in this encounter Care Teams Cyber Policy And Strategy Planner Relationship Specialty Start Date End Date Meme Steel MD [address] [place] [address] 105 [place] [address] PCP - General Pediatrics 06/05/18 04/25/22 No Pcp, Pcp PCP - General 06/08/22 07/19/22 Guadalupe Mcbride MD PCP - General Family Medicine 07/20/22 11/01/23 Sena Dominguez PA [address] [place] [address] [place] [address] PCP - BRADY Physician Microsoft Bi Developer 11/02/23 Levy Barry MD [address] [place] [address] [place] [address] PCP - General Family Medicine 12/20/23 documented as of this encounter
--- OUTSIDE RECORDS SUMMARY | 2025-07-31 12:09 | XMS_ITS | Encounter Summary ---
Author Organization [facility] work ([facility]) Address [address] [place] [address] Care Team Providers Care Biometric Screener Name Role Phone Meme Steel MD Primary Care Provider [phone] Pcp, Pcp Primary Care Provider Unavailabl Guadalupe Bardales MD Primary Care Provider [phone] Sena Dominguez Unavailable [phone] Levy Barry MD Primary Care Provider Unavailab le Source Comments The information that you have received may contain highly confidential and/or federally protected health information. This information has been disclosed to you from records protected by [facility]. The law prohibits [...] contact the sender immediately.[facility] ([facility]) Encounter Details Date Type Department Care Team (Late st Contact Info) Description 01/04/2008 Historical Note [facility] [employer] System Devyn Vásquez MD [address] [place] [address] [phone] Social History Tobacco Use Types Packs/Day Years [...] Visit LEATHA CARRILLO - [facility] [address] [facility] [address] [place] [phone] Brenda Clay MD [address] [facility] [address] [place] [address] 04/15/2026 10:00 AM EDT Office Visit [facility]HA [facility] at [facility] + [facility] [address] [facility] [address] [facility] [address] [place] [address] Sena Dominguez PA [address] [facility] [place] [address] documented as of this encounter Visit Diagnoses Not on filedocumented in this encounter Care Teams Biometric Screener Relationship Specialty Start Date End Date Meme Steel MD [address] [place] [address] 105 [place] [address] PCP - General Pediatrics 06/05/18 04/25/22 No Pcp, Pcp PCP - General 06/08/22 07/19/22 Guadalupe Mcbride MD PCP - General Family Medicine 07/20/22 11/01/23 Sena Dominguez PA [address] [place] [address] [place] [address] PCP - BRADY Physician Drupal Web Developer 11/02/23 Levy Barry MD [address] [place] [address] [place] [address] PCP - General Family Medicine 12/20/23 documented as of this encounter
--- OUTSIDE RECORDS SUMMARY | 2025-07-31 12:09 | XMS_ITS | Encounter Summary ---
Author Organization [facility] work ([facility]) Address [address] [place] [address] Care Team Providers Care Ripsaw Operator Name Role Phone Meme Steel MD Primary Care Provider [phone] No Pcp, Pcp Primary Care Provider Unavailabl Guadalupe Bardales MD Primary Care Provider [phone] Sena Dominguez Unavailable Levy Barry MD Primary Care Provider Unavailab le Source Comments The information that you have received may contain highly confidential and/or federally protected health information. This information has been disclosed to you from records protected by [facility]. The law prohibits you [...] contact the sender immediately.[facility] ([facility]) Encounter Details Date Type Department Care Team (Late st Contact Info) Description 02/18/2014 Historical Note [facility] [employer] System Devyn Vásquez MD [address] [place] [address] [phone] Social History Tobacco Use Types Packs/Day Years [...] CARRILLO - [facility] [address] [address] [place] [phone] Brenda Clay MD [address] [facility] [address] [place] [address] 04/15/2026 10:00 AM EDT Office Visit [facility]HA [facility] at [facility] + [facility] [address] [place] [address] Sena Dominguez PA [address] [facility] [place] [address] documented as of this encounter Visit Diagnoses Not on filedocumented in this encounter Care Teams Ripsaw Operator Relationship Specialty Start Date End Date Meme Steel MD [address] [place] [address] 105 [place] [address] PCP - General Pediatrics 06/05/18 04/25/22 No Pcp, Pcp PCP - General 06/08/22 07/19/22 Guadalupe Mcbride MD PCP - General Family Medicine 07/20/22 11/01/23 Sena Dominguez PA [address] [place] [address] [place] [address] PCP - BRADY Physician Circular Sawyer Helper 11/02/23 Levy Barry MD [address] [place] [address] [place] [address] PCP - General Family Medicine 12/20/23 documented as of this encounter
--- OUTSIDE RECORDS SUMMARY | 2025-07-31 12:09 | XMS_ITS | Encounter Summary ---
Author Organization [facility] work ([facility]) Address [address] [place] [address] Care Team Providers Care Racking Machine Operator Name Role Phone Meme Steel MD Primary Care Provider [phone] No Pcp, Pcp Primary Care Provider Unavailabl Guadalupe Bardales MD Primary Care Provider [phone] Sena Dominguez Unavailable Levy Barry MD Primary Care Provider Unavailab le Source Comments The information that you have received may contain highly confidential and/or federally protected health information. This information has been disclosed to you from records protected by [facility]. The law prohibits you [...] contact the sender immediately.[facility] ([facility]) Encounter Details Date Type Department Care Team (Late st Contact Info) Description 08/12/2008 Historical Note [facility] [employer] System Devyn Vásquez MD [address] [place] [address] [phone] Social History Tobacco Use Types Packs/Day Years [...] LEATHA CARRILLO - [facility] [address] [facility] [address] [place] [phone] Brenda Clay MD [address] [facility] [address] [place] [address] 04/15/2026 10:00 AM EDT Office Visit LEATHA [facility] at [facility] + [facility] [address] [facility] [address] [place] [address] Sena Dominguez PA [address] [facility] [place] [address] documented as of this encounter Visit Diagnoses Not on filedocumented in this encounter Care Teams Racking Machine Operator Relationship Specialty Start Date End Date Meme Steel MD [address] [place] [address] 105 [place] [address] PCP - General Pediatrics 06/05/18 04/25/22 No Pcp, Pcp PCP - General 06/08/22 07/19/22 Guadalupe Mcbride MD PCP - General Family Medicine 07/20/22 11/01/23 Sena Dominugez PA [address] [place] [address] [place] [address] PCP - BRADY Physician Calibrator Barometers 11/02/23 Levy Barry MD [address] [place] [address] [place] [address] PCP - General Family Medicine 12/20/23 documented as of this encounter
--- OUTSIDE RECORDS SUMMARY | 2025-07-31 12:09 | XMS_ITS | Encounter Summary ---
Author Organization [facility] work ([facility]) Address [address] [place] [address] Care Team Providers Care Program Officer Name Role Phone Meme Steel MD Primary Care Provider [phone] No Pcp, Pcp Primary Care Provider Unavailabl Guadalupe Bardales MD Primary Care Provider [phone] Sena Dominguez Unavailable [phone] Levy Barry MD Primary Care Provider Unavailab le Source Comments The information that you have received may contain highly confidential and/or federally protected health information. This information has been disclosed to you from records protected by [facility]. The law prohibits you from making [...] error, please contact the sender immediately.[facility] ([facility]) Encounter Details Date Type Department Care Team (Late st Contact Info) Description 01/04/2008 Historical Note [facility] [employer] System Devyn Vásquez MD [address] [place] [address] [phone] Social History Tobacco Use Types Packs/Day Years [...] Visit LEATHA CARRILLO - [facility] [address] [facility] [address] [place] [phone] Brenda Clay MD [address] [facility] [address] [place] [address] 04/15/2026 10:00 AM EDT Office Visit [facility]HA [facility] at [facility] + [facility] [address] [facility] [address] [place] [address] Sena Dominguez PA [address] [facility] [place] [address] documented as of this encounter Visit Diagnoses Not on filedocumented in this encounter Care Teams Program Officer Relationship Specialty Start Date End Date Meme Steel MD [address] [place] [address] 105 [place] [address] PCP - General Pediatrics 06/05/18 04/25/22 No Pcp, Pcp PCP - General 06/08/22 07/19/22 Guadalupe Mcbride MD PCP - General Family Medicine 07/20/22 11/01/23 Sena Dominguez PA [address] [place] [address] [place] [address] PCP - BRADY Physician Auxiliary Operator 11/02/23 Levy Barry MD [address] [place] [address] [place] [address] PCP - General Family Medicine 12/20/23 documented as of this encounter
--- OUTSIDE RECORDS SUMMARY | 2025-07-31 12:09 | XMS_ITS | Encounter Summary ---
Author Organization [facility] work ([facility]) Address [address] [place] [address] Care Team Providers Care Casino Slot Supervisor Name Role Phone Meme Steel MD Primary Care Provider [phone] Pcp, Pcp Primary Care Provider Unavailabl Guadalupe Bardales MD Primary Care Provider [phone] Sena Dominguez Unavailable [phone] Levy Barry MD Primary Care Provider Unavailab le Source Comments The information that you have received may contain highly confidential and/or federally protected health information. This information has been disclosed to you from records protected by [facility]. The law prohibits you [...] sender immediately.[facility] ([facility]) Encounter Details Date Type Department Care Team (Late st Contact Info) Description 05/20/2014 Historical Note [facility] [employer] System Devyn Vásquez MD [address] [place] [address] [phone] Social History Tobacco Use Types Packs/Day Years [...] LEATHA CARRILLO - [facility] [address] [facility] [address] [place] [phone] Brenda Clay MD [address] [facility] [address] [place] [address] 04/15/2026 10:00 AM EDT Office Visit LE[facility]HA [facility] at [facility] + [facility] [address] [facility] [address] [place] [address] Sena Dominguez PA [address] [facility] [place] [address] documented as of this encounter Visit Diagnoses Not on filedocumented in this encounter Care Teams Casino Slot Supervisor Relationship Specialty Start Date End Date Meme Steel MD [address] [place] [address] 105 [place] [address] PCP - General Pediatrics 06/05/18 04/25/22 No Pcp, Pcp PCP - General 06/08/22 07/19/22 Guadalupe Mcbride MD PCP - General Family Medicine 07/20/22 11/01/23 Sena Dominguez PA [address] [place] [address] [place] [address] PCP - BRADY Physician Towel Hemmer 11/02/23 Levy Barry MD [address] [place] [address] [place] [address] PCP - General Family Medicine 12/20/23 documented as of this encounter
--- OUTSIDE RECORDS SUMMARY | 2025-07-31 12:09 | XMS_ITS | Encounter Summary ---
Author Organization [facility] work ([facility]) Address [address] [place] [address] Care Team Providers Care Certified Lactation Counselor Name Role Phone Meme Steel MD Primary Care Provider [phone] No Pcp, Pcp Primary Care Provider Unavailabl Guadalupe Bardales MD Primary Care Provider [phone] Sena Dominguez Unavailable [phone] Levy Barry MD Primary Care Provider Unavailab le Source Comments The information that you have received may contain highly confidential and/or federally protected health information. This information has been disclosed to you from records protected by [facility]. The [...] contact the sender immediately.[facility] ([facility]) Encounter Details Date Type Department Care Team (Late st Contact Info) Description 10/02/2007 Historical Note [facility] [employer] System Devyn Vásquez MD [address] [place] [address] [phone] Social History Tobacco Use Types Packs/Day Years [...] CARRILLO - [facility] [address] [facility] [address] [place] [phone] Brenda Clay MD [address] [facility] [address] [place] [address] 04/15/2026 10:00 AM EDT Office Visit LE[facility]HA [facility] at [facility] [address] [facility] [address] [place] [address] Sena Dominguez PA [address] [facility] [place] [address] documented as of this encounter Visit Diagnoses Not on filedocumented in this encounter Care Teams Certified Lactation Counselor Relationship Specialty Start Date End Date Meme Steel MD [address] [place] [address] 105 [place] [address] PCP - General Pediatrics 06/05/18 04/25/22 No Pcp, Pcp PCP - General 06/08/22 07/19/22 Guadalupe Mcbride MD PCP - General Family Medicine 07/20/22 11/01/23 Sena Dominguez PA [address] [place] [address] [place] [address] PCP - BRADY Physician Quality Audit Representative 11/02/23 Levy Barry MD [address] [place] [address] [place] [address] PCP - General Family Medicine 12/20/23 documented as of this encounter
--- OUTSIDE RECORDS SUMMARY | 2025-07-31 12:09 | XMS_ITS | Encounter Summary ---
Author Organization [facility] work ([facility]) Address [address] [place] [address] Care Team Providers Care Investigation Clerk Name Role Phone Meme Steel MD Primary Care Provider No Pcp, Pcp Primary Care Provider Unavailabl Guadalupe Bardales MD Primary Care Provider [phone] Sena Dominguez Unavailable [phone] Levy Barry MD Primary Care Provider Unavailab le Source Comments The information that you have received may contain highly confidential and/or federally protected health information. This information has been disclosed to you from records protected by [facility]. The law prohibits you [...] error, please contact the sender immediately.[facility] ([facility]) Encounter Details Date Type Department Care Team (Late st Contact Info) Description 12/27/2007 Historical Note [facility] Knimbus System Devyn Vásquez MD [address] [place] [phone] Social History Tobacco Use Types Packs/Day Years [...] LEATHA CARRILLO - [place] [facility] [address] [place] [phone] Brenda Clay MD [address] [facility] [address] [place] [phone] 04/15/2026 10:00 AM EDT Office Visit LEATHA Primary Care at [facility] + [facility] [address] [place] [address] Sena Dominguez PA [address] [place] [address] documented as of this encounter Visit Diagnoses Not on filedocumented in this encounter Care Teams Investigation Clerk Relationship Specialty Start Date End Date Meme Steel MD [address] [place] [address] [place] [address] PCP - General Pediatrics 06/05/18 04/25/22 No Pcp, Pcp PCP - General 06/08/22 07/19/22 Guadalupe Mcbride MD PCP - General Family Medicine 07/20/22 11/01/23 Sena Dominguez PA [address] [place] [address] [place] [address] PCP - BRADY Physician Tissue Recovery Technician 11/02/23 Levy Barry MD [address] [place] [address] [place] [address] PCP - General Family Medicine 12/20/23 documented as of this encounter
--- OUTSIDE RECORDS SUMMARY | 2025-07-31 12:09 | XMS_ITS | Encounter Summary ---
Author Organization [facility] work ([facility]) Address [address] [place] [address] Care Team Providers Care Trimmer And Reinforcer Name Role Phone Meme Steel MD Primary Care Provider [phone] Pcp, Pcp Primary Care Provider Unavailabl Guadalupe Bardales MD Primary Care Provider [phone] Sena Dominguez Unavailable [phone] Levy Barry MD Primary Care Provider Unavailab le Source Comments The information that you have received may contain highly confidential and/or federally protected health information. This information has been disclosed to you from records protected by [facility]. The law prohibits you from making [...] sender immediately.[facility] ([facility]) Encounter Details Date Type Department Care Team (Late st Contact Info) Description 05/20/2014 Historical Note [facility] PassHat System Devyn Vásquez MD [address] [place] [address] [phone] Social History Tobacco Use Types Packs/Day Years [...] - [facility] [address] [place] [phone] Brenda Clay MD [address] [facility] [address] [place] [phone] 04/15/2026 10:00 AM EDT Office Visit LEATHA Primary Care at [facility] + [facility] [address] [place] [address] Sena Dominguez PA [address] [facility] [place] [address] documented as of this encounter Visit Diagnoses Not on filedocumented in this encounter Care Teams Trimmer And Reinforcer Relationship Specialty Start Date End Date Meme Steel MD [address] [place] [address] 105 [place] [address] PCP - General Pediatrics 06/05/18 04/25/22 No Pcp, Pcp PCP - General 06/08/22 07/19/22 Guadalupe Mcbride MD PCP - General Family Medicine 07/20/22 11/01/23 Sena Dominguez PA [address] [place] [address] [place] [address] PCP - BRADY Physician Health Safety Manager 11/02/23 Levy Barry MD [address] [place] [address] [place] [address] PCP - General Family Medicine 12/20/23 documented as of this encounter
--- OUTSIDE RECORDS SUMMARY | 2025-07-31 12:09 | XMS_ITS | Encounter Summary ---
Author Organization [facility] work ([facility]) Address [address] [place] [address] Care Team Providers Care [employer] Coxswain Name Role Phone Meme Steel MD Primary Care Provider [phone] Pcp, Pcp Primary Care Provider Unavailabl Guadalupe Bardales MD Primary Care Provider [phone] Sena Dominguez Unavailable [phone] Levy Barry MD Primary Care Provider Unavailab le Source Comments The information that you have received may contain highly confidential and/or federally protected health information. This information has been disclosed to you from records protected by [employer]. The [...] contact the sender immediately.[facility] ([facility]) Encounter Details Date Type Department Care Team (Late st Contact Info) Description 05/14/2013 Historical Note [facility] Keen Guides System Devyn Vásquez MD [address] [place] [address] [phone] Social History Tobacco Use Types Packs/Day Years [...] Visit LEATHA CARRILLO - [facility] [address] [facility] [address] [place] [phone] Brenda Clay MD [address] [facility] [address] [place] [phone] 04/15/2026 10:00 AM EDT Office Visit LEATHA Primary Care at [facility] + [facility] [address] [place] [phone] Sena Dominguez PA [address] [facility] [place] [address] documented as of this encounter Visit Diagnoses Not on filedocumented in this encounter Care Teams [employer] Coxswain Relationship Specialty Start Date End Date Meme Steel MD [address] [place] [address] 105 [place] [address] PCP - General Pediatrics 06/05/18 04/25/22 No Pcp, Pcp PCP - General 06/08/22 07/19/22 Guadalupe Mcbride MD PCP - General Family Medicine 07/20/22 11/01/23 Sena Dominguez PA [address] [place] [address] [place] [phone] PCP - BRADY Physician Review Analyst 11/02/23 Levy Barry MD [address] [place] [address] [place] [address] PCP - General Family Medicine 12/20/23 documented as of this encounter
--- OUTSIDE RECORDS SUMMARY | 2025-07-31 12:09 | XMS_ITS | Encounter Summary ---
Author Organization [facility] work ([facility]) Address [address] [place] [address] Care Team Providers Care Plate Grinder Name Role Phone Meme Steel MD Primary Care Provider [phone] Pcp, Pcp Primary Care Provider Unavailabl Guadalupe Bardales MD Primary Care Provider [phone] Sena Dominguez Unavailable [phone] Levy Barry MD Primary Care Provider Unavailab le Source Comments The information that you have received may contain highly confidential and/or federally protected health information. This information has been disclosed to you from records protected by [facility]. The law prohibits you from [...] sender immediately.[facility] ([facility]) Encounter Details Date Type Department Care Team (Late st Contact Info) Description 06/06/2008 Historical Note [facility] Dealstreet System Devyn Vásquez MD [address] [place] [address] [phone] Social History Tobacco Use Types Packs/Day Years [...] LEATHA CARRILLO - [facility] [address] [place] [phone] Brenda Clay MD [address] [facility] [address] [place] [phone] 04/15/2026 10:00 AM EDT Office Visit LEATHA Primary Care at [facility] [place] + [facility] [address] [facility] [address] [place] [address] Sena Dominguez PA [address] [facility] [place] [address] documented as of this encounter Visit Diagnoses Not on filedocumented in this encounter Care Teams Plate Grinder Relationship Specialty Start Date End Date Meme Steel MD [address] [place] [address] 105 [place] [address] PCP - General Pediatrics 06/05/18 04/25/22 No Pcp, Pcp PCP - General 06/08/22 07/19/22 Guadalupe Mcbride MD PCP - General Family Medicine 07/20/22 11/01/23 Sena Dominguez PA [address] [place] [address] [place] [address] PCP - BRADY Physician Barrel Loader 11/02/23 Levy Barry MD [address] [place] [address] [place] [address] PCP - General Family Medicine 12/20/23 documented as of this encounter
--- OUTSIDE RECORDS SUMMARY | 2025-07-31 12:09 | XMS_ITS | Encounter Summary ---
Author Organization [facility] work ([facility]) Address [address] [place] [address] Care Team Providers Care Senior Game Developer Name Role Phone Meme Steel MD Primary Care Provider [phone] No Pcp, Pcp Primary Care Provider Unavailabl Guadalupe Bardales MD Primary Care Provider [phone] Sena Dominguez Unavailable [phone] Levy Barry MD Primary Care Provider Unavailab le Source Comments The information that you have received may contain highly confidential and/or federally protected health information. This information has been disclosed to you from records protected by [facility]. The law prohibits [...] immediately.[facility] ([facility]) Encounter Details Date Type Department Care Team (Late st Contact Info) Description 06/16/2008 Historical Note [facility] Hybrigenics System Devyn Vásquez MD [address] [place] [address] [phone] Social History Tobacco Use Types Packs/Day Years [...] LEATHA CARRILLO - [facility] [address] [place] [phone] Brenda Clay MD [address] [facility] [address] [place] [address] 04/15/2026 10:00 AM EDT Office Visit LEATHA Primary Care at [facility] + [facility] [address] [facility] [address] [place] [address] Sena Dominguez PA [address] [facility] [place] [address] documented as of this encounter Visit Diagnoses Not on filedocumented in this encounter Care Teams Senior Game Developer Relationship Specialty Start Date End Date Meme Steel MD [address] [place] [address] 105 [place] [address] PCP - General Pediatrics 06/05/18 04/25/22 No Pcp, Pcp PCP - General 06/08/22 07/19/22 Guadalupe Mcbride MD PCP - General Family Medicine 07/20/22 11/01/23 Sena Dominguez PA [address] [place] [address] [place] [address] PCP - BRADY Physician Patient Services Technician 11/02/23 Levy Barry MD [address] [place] [address] [place] [address] PCP - General Family Medicine 12/20/23 documented as of this encounter
--- OUTSIDE RECORDS SUMMARY | 2025-07-31 12:09 | XMS_ITS | Encounter Summary ---
Author Organization [facility] work ([facility] Address [address] [place] [address] Care Team Providers Care Brazer Assembler Name Role Phone Meme Steel MD Primary Care Provider [phone] No Pcp, Pcp Primary Care Provider Unavailabl Guadalupe Bardales MD Primary Care Provider [phone] Sena Dominguez Unavailable Levy Barry MD Primary Care Provider Unavailab le Source Comments The information that you have received may contain highly confidential and/or federally protected health information. This information has been disclosed to you from records protected by [facility]. The law prohibits you [...] the sender immediately.[facility] ([facility] Encounter Details Date Type Department Care Team (Late st Contact Info) Description 03/24/2008 Historical Note [facility] Zero Motorcycles System Devyn Vásquez MD [address] [place] [address] [phone] Social History Tobacco Use Types Packs/Day Years [...] CARRILLO - [facility] [address] [facility] [address] [place] [phone] Brenda Clay MD [address] [facility] [address] [place] [phone] 04/15/2026 10:00 AM EDT Office Visit LEATHA Primary [facility] at [facility] + [facility] [address] [facility] [address] [place] [address] Sena Dominguez PA [address] [facility] [place] [address] documented as of this encounter Visit Diagnoses Not on filedocumented in this encounter Care Teams Brazer Assembler Relationship Specialty Start Date End Date Meme Steel MD [address] [place] [address] 105 [place] [address] PCP - General Pediatrics 06/05/18 04/25/22 No Pcp, Pcp PCP - General 06/08/22 07/19/22 Guadalupe Mcbride MD PCP - General Family Medicine 07/20/22 11/01/23 Sena Dominguez PA [address] [place] [address] [place] [address] PCP - BRADY Physician Grounds Maintenance Worker 11/02/23 Levy Barry MD [address] [place] [address] [place] [address] PCP - General Family Medicine 12/20/23 documented as of this encounter
--- OUTSIDE RECORDS SUMMARY | 2025-07-31 12:09 | XMS_ITS | Encounter Summary ---
Author Organization [facility] work ([facility]) Address [address] [place] [address] Care Team Providers Care Handkerchief Folder Name Role Phone Sena Dominguez Unavailable [phone] Levy Barry MD Primary Care Provider Unavailab le Source Comments The information that you have received may contain highly confidential and/or federally protected health information. This information has been disclosed to you from records protected by [employer]. The law prohibits you from making any [...] please contact the sender immediately.[facility] ([facility]) Encounter Details Date Type Department Care Team (Latest Contact Info) Description 07/07/2025 Results Follow-Up [facility] Primary Care at [facility] + [facility] 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 1 01/31/2025 Alcohol and Drug [...] Recorded In the past 12 months has [employer], gas, oil, or water [employer] threatened to shut off services in your home? No 01/31/2025 Comments No Sex and Gender Information Value Date Recorded Sex Assigned at Not on file Legal Sex Female 1:04 AM EDT Gender Identity Not on file Sexual Orientation Not on file documented as of this encounter Plan of Treatment Upcoming Encounters Date Type Department Care Team ([facility] Contact Info) Description 10/10/2025 10:00 AM EST Office Visit LEATHA CARRILLO [facility] [employer] [address] [place] [address] [address] [place] [phone] Brenda Clay MD [address] [place] [address] [place] [phone] 04/15/2026 10:00 AM EDT Office Visit LEATHA Primary Care at [facility] + [address] [place] [phone] Sena Dominguez PA [address] [place] [address] [place] [address] documented as of this encounter Goals Goal Patient Goal Type Associated Problems Recent Progress Patient-Stated? Author Water intake Diet No Teena Snyder RD Note: At least 4, 17 ounces water daily Increase Exercise Exercise Yes Teena Snyder RD Note: Walk dog: at lest 1 x week for 10 minutes (FPC goal of 150 minutes planned movement weekly) [...] documented as of this encounter Care Teams Handkerchief Folder Relationship Specialty Start Date End Date Sena Dominguez PA [address] [place] [address] [place] [address] PCP - BRADY Physician Fermenting Cellars Receiver 11/02/23 Levy Barry MD [address] [place] [address] [place] [address] PCP - General Family Medicine 12/20/23 documented as of this encounter
--- OUTSIDE RECORDS SUMMARY | 2025-07-31 12:09 | XMS_ITS | Encounter Summary ---
Author Organization [facility] work ([facility]) Address [address] [place] [address] Care Team Providers Care Kiln Puller Name Role Phone Meme Steel MD Primary Care Provider [phone] No Pcp, Pcp Primary Care Provider Unavailabl Guadalupe Bardales MD Primary Care Provider [phone] Sena Dominguez Unavailable [phone] Levy Barry MD Primary Care Provider Unavailab le Source Comments The information that you have received may contain highly confidential and/or federally protected health information. This information has been disclosed to you from records protected by [facility]. The law prohibits you from [...] immediately.[facility] ([facility]) Encounter Details Date Type Department Care Team (Late st Contact Info) Description 06/18/2014 Historical Note [facility] IOCS System Devyn Vásquez MD [address] [place] [address] [phone] Social History Tobacco Use Types Packs/Day Years [...] LEATHA CARRILLO - [facility] [address] [facility] [address] [place] [phone] Brenda Clay MD [address] [facility] [address] [place] [phone] 04/15/2026 10:00 AM EDT Office Visit LETAHA Primary Care at [facility] + [facility] [address] [facility] [address] [place] [address] Sena Dominguez PA [address] [facility] [place] [address] documented as of this encounter Visit Diagnoses Not on filedocumented in this encounter Care Teams Kiln Puller Relationship Specialty Start Date End Date Meme Steel MD [address] [place] [address] 105 [place] [address] PCP - General Pediatrics 06/05/18 04/25/22 No Pcp, Pcp PCP - General 06/08/22 07/19/22 Guadalupe Mcbride MD PCP - General Family Medicine 07/20/22 11/01/23 Sena Dominguez PA [address] [place] [address] [place] [address] PCP - BRADY Physician Science Manager 11/02/23 Levy Barry MD [address] [place] [address] [place] [address] PCP - General Family Medicine 12/20/23 documented as of this encounter
--- OUTSIDE RECORDS SUMMARY | 2025-07-31 12:09 | XMS_ITS | Encounter Summary ---
Author Organization [facility] work ([facility]) Address [address] [place] [address] Care Team Providers Care Reliability Technician Name Role Phone Meme Steel MD Primary Care Provider [phone] No Pcp, Pcp Primary Care Provider Unavailabl Guadalupe Bardales MD Primary Care Provider [phone] Sena Dominguez Unavailable [phone] Levy Barry MD Primary Care Provider Unavailab le Source Comments The information that you have received may contain highly confidential and/or federally protected health information. This information has been disclosed to you from records protected by [facility]. The law prohibits you [...] immediately.[facility] ([facility]) Encounter Details Date Type Department Care Team (Late st Contact Info) Description 11/26/2007 Historical Note [facility] MoneyMan System Devyn Vásquez MD [address] [place] [address] [phone] Social History Tobacco Use Types Packs/Day Years [...] - Located [facility] [address] [facility] [address] [place] [phone] Brenda Clay MD [address] [facility] [address] [place] [phone] 04/15/2026 10:00 AM EDT Office Visit LEATHA Primary Care at [facility] + [facility] [address] [facility] [address] [place] [address] Sena Dominguez PA [address] [facility] [place] [address] documented as of this encounter Visit Diagnoses Not on filedocumented in this encounter Care Teams Reliability Technician Relationship Specialty Start Date End Date Meme Steel MD [address] [place] [address] 105 [place] [address] PCP - General Pediatrics 06/05/18 04/25/22 No Pcp, Pcp PCP - General 06/08/22 07/19/22 Guadalupe Mcbride MD PCP - General Family Medicine 07/20/22 11/01/23 Sena Dominguez PA [address] [place] [address] [place] [address] PCP - BRADY Physician Nozzle Cement Sprayer Helper 11/02/23 Levy Barry MD [address] [place] [address] [place] [address] PCP - General Family Medicine 12/20/23 documented as of this encounter
--- OUTSIDE RECORDS SUMMARY | 2025-07-31 12:09 | XMS_ITS | Encounter Summary ---
Author Organization [facility] work ([facility]) Address [address] [place] [address] Care Team Providers Care First Officer And Flight Instructor Name Role Phone Meme Steel MD Primary Care Provider [phone] Pcp, Pcp Primary Care Provider Unavailabl Guadalupe Bardales MD Primary Care Provider [phone] Sena Dominguez Unavailable [phone] Levy Barry MD Primary Care Provider Unavailab le Source Comments The information that you have received may contain highly confidential and/or federally protected health information. This information has been disclosed to you from records protected by [facility]. The law prohibits [...] error, please contact the sender immediately.[facility] ([facility]) Encounter Details Date Type Department Care Team (Late st Contact Info) Description 09/22/2014 Historical Note [facility] Re[employer]on System Devyn Vásquez MD [address] [place] [address] [id number] Social History Tobacco Use Types Packs/Day Years [...] LEATHA CARRILLO - [facility] [address] [facility] [address] [place] [phone] Brenda Clay MD [address] [facility] [address] [place] [phone] 04/15/2026 10:00 AM EDT Office Visit LEATHA Primary Care at [facility] + [facility] [address] [facility] [facility] [address] [place] [address] Sena Dominguez PA [address] [facility] [place] [address] documented as of this encounter Visit Diagnoses Not on filedocumented in this encounter Care Teams First Officer And Flight Instructor Relationship Specialty Start Date End Date Meme Steel MD [address] [place] [address] [place] [address] PCP - General Pediatrics 06/05/18 04/25/22 No Pcp, Pcp PCP - General 06/08/22 07/19/22 Guadalupe Mcbride MD PCP - General Family Medicine 07/20/22 11/01/23 Sena Dominguez PA [address] [place] [address] [place] [address] PCP - BRADY Physician Accounting Tutor 11/02/23 Levy Barry MD [address] [place] [address] [place] [address] PCP - General Family Medicine 12/20/23 documented as of this encounter
--- OUTSIDE RECORDS SUMMARY | 2025-07-31 12:09 | XMS_ITS | Encounter Summary ---
Author Organization [facility] work ([facility]) Address [address] [place] [address] Care Team Providers Care Nurse Prn Name Role Phone Meme Steel MD Primary Care Provider [phone] Pcp, Pcp Primary Care Provider Unavailabl Guadalupe Bardales MD Primary Care Provider [phone] Sena Dominguez Unavailable [phone] Levy Barry MD Primary Care Provider Unavailab le Source Comments The information that you have received may contain highly confidential and/or federally protected health information. This information has been disclosed to you from records protected by [facility]. The law prohibits you [...] the sender immediately.[facility] ([facility]) Encounter Details Date Type Department Care Team (Late st Contact Info) Description 02/18/2014 Historical Note [facility] [email or web address] System Devyn Vásquez MD [address] [place] [address] [phone] Social History Tobacco Use Types Packs/Day Years [...] LEATHA CARRILLO - [facility] [address] [facility] [address] [place] [phone] Brenda Clay MD [address] [facility] [address] [place] [phone] 04/15/2026 10:00 AM EDT Office Visit LEATHA [facility] at [facility] [address] [facility] [address] [place] [address] Sena Dominguez PA [address] [facility] [place] [address] documented as of this encounter Visit Diagnoses Not on filedocumented in this encounter Care Teams Nurse Prn Relationship Specialty Start Date End Date Meme Steel MD [address] [place] [address] 105 [place] [address] PCP - General Pediatrics 06/05/18 04/25/22 No Pcp, Pcp PCP - General 06/08/22 07/19/22 Guadalupe Mcbride MD PCP - General Family Medicine 07/20/22 11/01/23 Sena Dominguez PA [address] [place] [address] [place] [address] PCP - BRADY Physician Senior Catering Sales Manager 11/02/23 Levy Barry MD [address] [place] [address] [place] [address] PCP - General Family Medicine 12/20/23 documented as of this encounter
--- OUTSIDE RECORDS SUMMARY | 2025-07-31 12:09 | XMS_ITS | Encounter Summary ---
Author Organization [facility] work ([facility]) Address [address] [place] [address] Care Team Providers Care Delivery Representative Name Role Phone Meme Steel MD Primary Care Provider [phone] Pcp, Pcp Primary Care Provider Unavailabl Guadalupe Bardales MD Primary Care Provider Sena Dominguez Unavailable [phone] Levy Barry MD Primary Care Provider Unavailab le Source Comments The information that you have received may contain highly confidential and/or federally protected health information. This information has been disclosed to you from records protected by [facility]. The law prohibits you from making [...] the sender immediately.[facility] ([facility]) Encounter Details Date Type Department Care Team (Late st Contact Info) Description 06/14/2008 Historical Note [facility] Run My Errands System Devyn Vásquez MD [address] [place] [address] [phone] Social History Tobacco Use Types Packs/Day Years [...] LEATHA CARRILLO - [facility] [address] [facility] [address] [place] [phone] Brenda Clay MD [address] [facility] [address] [place] [phone] 04/15/2026 10:00 AM EDT Office Visit LEATHA Primary [facility] at [facility] + [facility] [address] [facility] [address] [place] [address] Sena Dominguez PA [address] [facility] [place] [address] documented as of this encounter Visit Diagnoses Not on filedocumented in this encounter Care Teams Delivery Representative Relationship Specialty Start Date End Date Meme Steel MD [address] [place] [address] 105 [place] [address] PCP - General Pediatrics 06/05/18 04/25/22 No Pcp, Pcp PCP - General 06/08/22 07/19/22 Guadalupe Mcbride MD PCP - General Family Medicine 07/20/22 11/01/23 Sena Dominguez PA [address] [place] [address] [place] [address] PCP - BARDY Physician Child Care Supervisor 11/02/23 Levy Barry MD [address] [place] [address] [place] [address] PCP - General Family Medicine 12/20/23 documented as of this encounter
--- OUTSIDE RECORDS SUMMARY | 2025-07-31 12:09 | XMS_ITS | Encounter Summary ---
Author Organization [facility] work ([facility]) Address [address] [place] [address] Care Team Providers Care Waterproof Bag Cutting Machine Operator Name Role Phone Meme Steel MD Primary Care Provider [phone] Pcp, Pcp Primary Care Provider Unavailabl Guadalupe Bardales MD Primary Care Provider [phone] Sena Dominguez Unavailable [phone] Levy Barry MD Primary Care Provider Unavailab le Source Comments The information that you have received may contain highly confidential and/or federally protected health information. This information has been disclosed to you from records protected by [facility]. The law prohibits [...] please contact the sender immediately.[facility] ([facility]) Encounter Details Date Type Department Care Team (Late st Contact Info) Description 12/27/2007 Historical Note [facility] DocuSign System Devyn Vásquez MD [address] [place] [address] [id number] Social History Tobacco Use Types Packs/Day Years [...] Visit LEATHA CARRILLO - [facility] [address] [facility] [address] [place] [phone] Brenda Clay MD [address] [facility] [address] [place] [phone] 04/15/2026 10:00 AM EDT Office Visit LEATHA [facility] at [facility] + [facility] [address] [facility] [address] [place] [phone] Sena Dominguez PA [address] [facility] [place] [address] documented as of this encounter Visit Diagnoses Not on filedocumented in this encounter Care Teams Waterproof Bag Cutting Machine Operator Relationship Specialty Start Date End Date Meme Steel MD [address] [place] [address] 105 [place] [address] PCP - General Pediatrics 06/05/18 04/25/22 No Pcp, Pcp PCP - General 06/08/22 07/19/22 Guadalupe Mcbride MD PCP - General Family Medicine 07/20/22 11/01/23 Sena Dominguez PA [address] [place] [address] [place] [address] PCP - BRADY Physician Stock Pitcher 11/02/23 Levy Barry MD [address] [place] [address] [place] [address] PCP - General Family Medicine 12/20/23 documented as of this encounter
--- OUTSIDE RECORDS SUMMARY | 2025-07-31 12:09 | XMS_ITS | Encounter Summary ---
Author Organization [facility] work ([facility]) Address [address] [place] [address] Care Team Providers Care Consulting Technical Director Name Role Phone Meme Steel MD Primary Care Provider [phone] Pcp, Pcp Primary Care Provider Unavailabl Guadalupe Bardales MD Primary Care Provider [phone] Sena Dominguez Unavailable [phone] Levy Barry MD Primary Care Provider Unavailab le Source Comments The information that you have received may contain highly confidential and/or federally protected health information. This information has been disclosed to you from records protected by [facility]. The law prohibits you [...] please contact the sender immediately.[facility] ([facility]) Encounter Details Date Type Department Care Team (Late st Contact Info) Description 06/16/2014 Historical Note [facility] SampleBoard System Devyn Vásquez MD [address] [place] [address] [phone] Social History Tobacco Use Types Packs/Day Years [...] Office Visit LEATHA CARRILLO - [facility] [address] [facility] [address] [place] [phone] Brenda Clay MD [address] [facility] [address] [place] [phone] 04/15/2026 10:00 AM EDT Office Visit LEATHA [facility] at [facility] + [facility] [address] [facility] [address] [place] [address] Sena Dominguez PA [address] [facility] [place] [address] documented as of this encounter Visit Diagnoses Not on filedocumented in this encounter Care Teams Consulting Technical Director Relationship Specialty Start Date End Date Meme Steel MD [address] [place] [address] 105 [place] [address] PCP - General Pediatrics 06/05/18 04/25/22 No Pcp, Pcp PCP - General 06/08/22 07/19/22 Guadalupe Mcbride MD PCP - General Family Medicine 07/20/22 11/01/23 Sena Dominguez PA [address] [place] [address] [place] [address] PCP - BRADY Physician Coating Mixer Supervisor 11/02/23 Levy Barry MD [address] [place] [address] [place] [address] PCP - General Family Medicine 12/20/23 documented as of this encounter
--- OUTSIDE RECORDS SUMMARY | 2025-07-31 12:09 | XMS_ITS | Clinical Summary ---
Author Organization [facility] work ([facility]) Address [address] [place] [address] Care Team Providers Care Dough Panner Name Role Phone Sena Dominguez Unavailable Levy Barry MD Primary Care Provider Unavailab le Source Comments The information that you have received may contain highly confidential and/or federally protected health information. This information has been disclosed to you from records protected by [employer]. The law prohibits you from making any [...] contact the sender immediately.[facility] ([facility]) Allergies Active Allergy Reactions Criticality Noted [...] daily . Active fexofenadine (BARB) 180 mg tablet Take [...] CONTINUOUS DOSING 84 tablet 3 5 Active fexofenadine (BARB) 180 mg tabletIndicatio ns:Allergic rhinitis due to dust mite Take 1 tablet (180 mg total) by mouth daily . 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 Allergic 2013 Anxiety 2009 Depression 2014 Obesity 2009 Family History Medical History Relation Name Comments Chiari malformation Brother 1 Anxiety disorder Brother 2 Jah Nath Diabetes Father Ilan Nath Hypertension Father Ilan Nath Anxiety disorder Mother Lacy Marcos Hypertension Mother Lacy Marcos Mental illness Mother Lacy Dentdiaz Anxiety disorder Sister 1 Janelle Dentler Hypothyroidism Sister 1 Janelle Dentler Thyroid disease Sister 2 Heidy Nath Relation Name Status Comments Brother 1 Brother 2 Jah Tylera Father Ilan Nath Mother Lacy Dentler Sister [...] 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 1 01/31/2025 Alcohol and Drug Use [...] 10:00 AM EST Office Visit LEATHA CARRILLO [facility] [address] [facility] [address] [place] [phone] Brenda Clay MD [address] [place] [address] [address] [facility] [place] [phone] 04/15/2026 10:00 AM EDT Office Visit LEATHA Primary Care at [facility] + [address] [place] [address] Sena Dominguez PA [address] [facility] [place] [id number] Health Maintenance Due Date Last Done Comments [...] lest 1 x week for 10 minutes (senior living goal of 150 minutes planned movement weekly) [...] 11.0 - 15.0 % [facility] Platelet Count 329 140 - 400 Thousand/u L [facility] Mpv 10.1 7.5 - 12.5 fL [facility] Absolute Neutrophil Count 4,529 1,500 - 7,800 cells/uL [facility] Lymphocyte Count 2,116 850 - 3,900 cells/uL [facility] Monocyte Count 481 200 - 950 cells/uL [facility] Absolute Eosinophil Count 237 15 - 500 cells/uL [facility] Absolute Basophil Count 37 0 - 200 cells/uL [facility] Neutrophils Percent 61.2 % [facility] Total Lymphocytes Percent 28.6 % [facility] Monocytes Percent 6.5 % [facility] Eosinophil Percent 3.2 % [facility] Basophils Percent 0.5 % [facility] Blood specimen / Unknown 07/05/2025 10:34 AM EDT 07/05/2025 10:34 AM EDT Narrative [facility] - 07/05/2025 6:11 PM EDT 1 OF 2 REQS FASTING:YES FASTING: YES Holly VÁZQUEZ LAB BLOOD ORDERABLES Final R esult [facility] [address] [place] [address] [place] [phone] [facility] [place] [address] * (ABNORMAL) Lipid panel w/Reflex to Direct LDL (07/05/2025 10:34 AM EDT) Cholesterol 192 <200 mg/dL [facility] HDL Cholesterol 62 > OR = 50 mg/dL [facility] Triglycerides 81 <150 mg/dL [facility] LDL Cholesterol, Calculated 112(H) mg/dL (calc) [facility] Comment: Reference range: <100 Desirable range <100 mg/dL for primary prevention; <70 mg/dL for patients with CHD or diabetic patients with > or = 2 CHD risk factors. LDL-C is now calculated using the Madelyn calculation, which is a validated novel method providing better accuracy than the Friedewald equation in the estimation of LDL-C. Antoine SS et al. DEBORA. 2013;310(16): 2414-6630 (http://education.[employer]/faq/RCC932) Cholesterol/HDL Ratio 3.1 <5.0 (calc) [facility] NON-HDL CHOLESTEROL 130(H) <130 mg/dL (calc) [facility] Comment: For patients with diabetes plus [...] ORDERABLES Final R esult [facility] [address] [place] [address] [place] [address] [facility] [address] [place] [address] [place] [phone] * Comprehensive metabolic panel (07/05/2025 10:34 AM EDT) [facility] Glucose 80 65 - 99 mg/dL [facility] Comment: Fasting reference interval BUN 9 7 - 25 mg/dL [facility] Creatinine 0.64 0.50 - 0.96 mg/dL [facility] EGFR 129 > OR = 60 mL/min/1. 73m2 [facility] BUN/Creatinine Ratio SEE NOTE: 6 - 22 (calc) [facility] Comment: Not Reported: BUN and Creatinine are within reference range. Sodium 138 135 - 146 mmol/L [facility] Potassium 4.5 3.4 - 4.8 mmol/L [facility] Chloride 107 98 - 110 mmol/L [facility] CO2 23 20 - 32 mmol/L [facility] Calcium 9.0 8.6 - 10.2 mg/dL [facility] Total Protein 7.3 6.4 - 8.4 g/dL [facility] Albumin 3.8 3.6 - 5.1 g/dL [facility] Globulin, Calculated 3.5 2.2 - 4.0 g/dL (calc) [facility] ALBUMIN/GLOBULI N RATIO 1.1 0.9 - 2.3 (calc) [facility] Total Bilirubin 0.3 0.2 - 1.2 mg/dL [facility] Alkaline Phosphatase 91 31 - 125 U/L [facility] AST 20 10 - 30 U/L [facility] ALT 16 6 - 29 U/L [facility] Blood Blood specimen / Unknown 07/05/2025 10:34 AM EDT 07/05/2025 10:34 AM EDT Narrative [facility] - 07/05/2025 6:11 PM EDT 1 OF 2 REQS FASTING:YES FASTING: YES us Holly VÁZQUEZ LAB BLOOD ORDERABLES Final R esult [facility] [address] [place] [address] [place] [address] [facility] [address] [place] [address] [place] [phone] from Last 3 Months Insurance [facility] [employer] [facility] [place] [facility] [employer] [facility] [place] Care Teams Dough Panner Relationship Specialty Start Date End Date Sena Dominguez [place] [address] [facility] [place] [phone] PCP - BRADY Physician Charge Poster 11/02/23 Levy Barry MD [address] [facility] [place] [address] PCP - General Family Medicine 12/20/23
--- OUTSIDE RECORDS SUMMARY | 2025-07-31 12:09 | XMS_ITS | Encounter Summary ---
Author Organization [facility] work ([facility]) Address [address] [place] [address] Care Team Providers Care Instructional Design Technologist Name Role Phone Meme Steel MD Primary Care Provider [phone] Pcp, Pcp Primary Care Provider Unavailabl Guadalupe Bardales MD Primary Care Provider [phone] Sena Dominguez Unavailable [phone] Levy Barry MD Primary Care Provider Unavailab le Source Comments The information that you have received may contain highly confidential and/or federally protected health information. This information has been disclosed to you from records protected by [facility]. The law prohibits you [...] contact the sender immediately.[facility] ([facility]) Encounter Details Date Type Department Care Team (Late st Contact Info) Description 11/07/2014 Historical Note [facility] [employer] System Devyn Vásquez MD [address] [place] [address] [id number] Social History Tobacco Use Types Packs/Day Years [...] Visit LEATHA CARRILLO - [facility] [address] [facility] [address] [place] [phone] Brenda Clay MD [address] [facility] [address] [place] [phone] 04/15/2026 10:00 AM EDT Office Visit LEATHA Primary [facility] at [facility] + [facility] [address] [facility] [address] [place] [address] Sena Dominguez PA [address] [facility] [place] [address] documented as of this encounter Visit Diagnoses Not on filedocumented in this encounter Care Teams Instructional Design Technologist Relationship Specialty Start Date End Date Meme Steel MD [address] [place] [address] [place] [address] PCP - General Pediatrics 06/05/18 04/25/22 No Pcp, Pcp PCP - General 06/08/22 07/19/22 Guadalupe Mcbride MD PCP - General Family Medicine 07/20/22 11/01/23 Sena Dominguez PA [address] [place] [address] [place] [address] PCP - BRADY Physician Playground Director 11/02/23 Levy Barry MD [address] [place] [address] [place] [address] PCP - General Family Medicine 12/20/23 documented as of this encounter
--- OUTSIDE RECORDS SUMMARY | 2025-07-31 12:09 | XMS_ITS | Encounter Summary ---
Author Organization [facility] work ([facility]) Address [address] [place] [address] Care Team Providers Care Tight Cooper Name Role Phone Meme Steel MD Primary Care Provider [phone] Pcp, Pcp Primary Care Provider Unavailabl Guadalupe Bardales MD Primary Care Provider [phone] Sena Dominguez Unavailable [phone] Levy Barry MD Primary Care Provider Unavailab le Source Comments The information that you have received may contain highly confidential and/or federally protected health information. This information has been disclosed to you from records protected by [facility]. The law prohibits you [...] please contact the sender immediately.[facility] ([facility]) Encounter Details Date Type Department Care Team (Late st Contact Info) Description 09/22/2014 Historical Note [facility] [employer] System Devyn Vásquez MD [address] [place] [address] [phone] Social History Tobacco Use Types Packs/Day Years [...] - [facility] at [facility] [address] [facility] [address] [place] [phone] Brenda Clay MD [address] [facility] [address] [place] [address] 04/15/2026 10:00 AM EDT Office Visit [facility] at [facility] + [facility] [address] [facility] [address] [place] [address] Sena Dominguez PA [address] [facility] [place] [address] documented as of this encounter Visit Diagnoses Not on filedocumented in this encounter Care Teams Tight Cooper Relationship Specialty Start Date End Date Meme Steel MD [address] [place] [address] [place] [address] PCP - General Pediatrics 06/05/18 04/25/22 No Pcp, Pcp PCP - General 06/08/22 07/19/22 Guadalupe Mcbride MD PCP - General Family Medicine 07/20/22 11/01/23 Sena Dominguez PA [address] [place] [address] [place] [address] PCP - BRADY Physician Registered Account Administrator 11/02/23 Levy Barry MD [address] [place] [address] [place] [address] PCP - General Family Medicine 12/20/23 documented as of this encounter
--- OUTSIDE RECORDS SUMMARY | 2025-07-31 12:09 | XMS_ITS | Encounter Summary ---
Author Organization [facility] work ([facility]) Address [address] [place] [address] Care Team Providers Care Resource Technician Name Role Phone Meme Steel MD Primary Care Provider [phone] Pcp, Pcp Primary Care Provider Unavailabl Guadalupe Bardales MD Primary Care Provider [phone] Sena Dominguez Unavailable [phone] Levy Barry MD Primary Care Provider Unavailab le Source Comments The information that you have received may contain highly confidential and/or federally protected health information. This information has been disclosed to you from records protected by [facility]. The law prohibits you from [...] contact the sender immediately.[facility] ([facility]) Encounter Details Date Type Department Care Team (Late st Contact Info) Description 03/24/2008 Historical Note [facility] [employer] System Devyn Vásquez MD [address] [place] [address] [phone] Social History Tobacco Use Types Packs/Day Years [...] CARRILLO - [facility] [employer] [address] [facility] [address] [place] [phone] Brenda Clay MD [address] [facility] [address] [place] [address] 04/15/2026 10:00 AM EDT Office Visit [facility] at [facility] [address] [facility] [address] [place] [address] Sena Dominguez PA [address] [facility] [place] [address] documented as of this encounter Visit Diagnoses Not on filedocumented in this encounter Care Teams Resource Technician Relationship Specialty Start Date End Date Meme Steel MD [address] [place] [address] 105 [place] [address] PCP - General Pediatrics 06/05/18 04/25/22 No Pcp, Pcp PCP - General 06/08/22 07/19/22 Guadalupe Mcbride MD PCP - General Family Medicine 07/20/22 11/01/23 Sena Dominguez PA [address] [place] [address] [place] [address] PCP - BRADY Physician Battery Tester 11/02/23 Levy Barry MD [address] [place] [address] [place] [address] PCP - General Family Medicine 12/20/23 documented as of this encounter
--- OUTSIDE RECORDS SUMMARY | 2025-07-31 12:09 | XMS_ITS | Encounter Summary ---
Author Organization [facility] work ([facility]) Address [address] [place] [address] Care Team Providers Care Make Up Man Name Role Phone Meme Steel MD Primary Care Provider [phone] Pcp, Pcp Primary Care Provider Unavailabl Guadalupe Bardales MD Primary Care Provider Sena Dominguez Unavailable [phone] Levy Barry MD Primary Care Provider Unavailab le Source Comments The information that you have received may contain highly confidential and/or federally protected health information. This information has been disclosed to you from records protected by [employer]. The law prohibits you [...] contact the sender immediately.[facility] ([facility]) Encounter Details Date Type Department Care Team (Late st Contact Info) Description 09/22/2014 Historical Note SVMG [employer] System Devyn Vásquez MD [address] [place] [address] [phone] Social History Tobacco Use Types Packs/Day Years [...] LEATHA CARRILLO - [facility] at [facility] [address] [facility] [address] [place] [phone] Brenda Clay MD [address] [facility] [address] [place] [phone] 04/15/2026 10:00 AM EDT Office Visit [facility]HA [facility] at [facility] + [facility] [address] [facility] [address] [place] [address] Sena Dominguez PA [address] [facility] [place] [address] documented as of this encounter Visit Diagnoses Not on filedocumented in this encounter Care Teams Make Up Man Relationship Specialty Start Date End Date Meme Steel MD [address] [place] [address] 105 [place] [address] PCP - General Pediatrics 06/05/18 04/25/22 No Pcp, Pcp PCP - General 06/08/22 07/19/22 Guadalupe Mcbride MD PCP - General Family Medicine 07/20/22 11/01/23 Sena Dominguez PA [address] [place] [address] [place] [address] PCP - BRADY Physician Dehorner 11/02/23 Levy Barry MD [address] [place] [address] [place] [address] PCP - General Family Medicine 12/20/23 documented as of this encounter
--- OUTSIDE RECORDS SUMMARY | 2025-07-31 12:09 | XMS_ITS | Encounter Summary ---
Author Organization [facility] work ([facility]) Address [address] [place] [address] Care Team Providers Care Curtain Stitcher Name Role Phone Meme Steel MD Primary Care Provider [phone] Pcp, Pcp Primary Care Provider Unavailabl Guadalupe Bardales MD Primary Care Provider [phone] Sena Dominguez Unavailable [phone] Levy Barry MD Primary Care Provider Unavailab le Source Comments The information that you have received may contain highly confidential and/or federally protected health information. This information has been disclosed to you from records protected by [facility]. The law prohibits you [...] please contact the sender immediately.[facility] ([facility]) Encounter Details Date Type Department Care Team (Late st Contact Info) Description 01/02/2014 Historical Note [facility] Le[employer] System Devyn Vásquez MD [address] [place] [address] [phone] Social History Tobacco Use Types Packs/Day Years [...] - [facility] [address] [facility] [address] [place] [phone] Brenda Clay MD [address] [facility] [address] [place] [address] 04/15/2026 10:00 AM EDT Office Visit [facility]HA [facility] at [facility] + [facility] [address] [facility] [address] [place] [address] Sena Dominguez PA [address] [facility] [place] [address] documented as of this encounter Visit Diagnoses Not on filedocumented in this encounter Care Teams Curtain Stitcher Relationship Specialty Start Date End Date Meme Steel MD [address] [place] [address] 105 [place] [address] PCP - General Pediatrics 06/05/18 04/25/22 No Pcp, Pcp PCP - General 06/08/22 07/19/22 Guadalupe Mcbride MD PCP - General Family Medicine 07/20/22 11/01/23 Sena Dominguez PA [address] [place] [address] [place] [address] PCP - BRADY Physician Securities Lending Trader 11/02/23 Levy Barry MD [address] [place] [address] [place] [address] PCP - General Family Medicine 12/20/23 documented as of this encounter
--- OUTSIDE RECORDS SUMMARY | 2025-07-31 12:10 | XMS_ITS | Encounter Summary ---
Author Organization [facility] work ([facility]) Address [address] [place] [address] Care Team Providers Care Credit Specialist Name Role Phone Meme Steel MD Primary Care Provider [phone] Pcp, Pcp Primary Care Provider Unavailabl Guadalupe Bardales MD Primary Care Provider [phone] Sena Dominguez Unavailable [phone] Levy Barry MD Primary Care Provider Unavailab le Source Comments The information that you have received may contain highly confidential and/or federally protected health information. This information has been disclosed to you from records protected by [facility]. The law prohibits you [...] please contact the sender immediately.[facility] ([facility]) Encounter Details Date Type Department Care Team (Late st Contact Info) Description 01/02/2014 Historical Note [facility] [employer] System Devyn Vásquez MD [address] [place] [address] [phone] Social History Tobacco Use Types Packs/Day Years [...] LEATHA CARRILLO - [facility] at [facility] [address] [facility] [address] [place] [phone] Brenda Clay MD [address] [facility] [address] [place] [address] 04/15/2026 10:00 AM EDT Office Visit [facility]HA [facility] at [facility] + [facility] [address] [facility] [address] [place] [address] Sena Dominguez PA [address] [facility] [place] [address] documented as of this encounter Visit Diagnoses Not on filedocumented in this encounter Care Teams Credit Specialist Relationship Specialty Start Date End Date Meme Steel MD [address] [place] [address] 105 [place] [address] PCP - General Pediatrics 06/05/18 04/25/22 No Pcp, Pcp PCP - General 06/08/22 07/19/22 Guadalupe Mcbride MD PCP - General Family Medicine 07/20/22 11/01/23 Sena Dominguez PA [address] [place] [address] [place] [address] PCP - BRADY Physician Business Services Director 11/02/23 Levy Barry MD [address] [place] [address] [place] [address] PCP - General Family Medicine 12/20/23 documented as of this encounter
--- OUTSIDE RECORDS SUMMARY | 2025-07-31 12:10 | XMS_ITS | Encounter Summary ---
Author Organization [facility] work ([facility]) Address [address] [place] [address] Care Team Providers Care Unmanned Equipment Operator Name Role Phone Meme Steel MD Primary Care Provider [phone] No Pcp, Pcp Primary Care Provider Unavailabl Guadalupe Bardales MD Primary Care Provider [phone] Sena Dominguez Unavailable [phone] Levy Barry MD Primary Care Provider Unavailab le Source Comments The information that you have received may contain highly confidential and/or federally protected health information. This information has been disclosed to you from records protected by [facility]. The law prohibits [...] the sender immediately.[facility] ([facility]) Encounter Details Date Type Department Care Team (Late st Contact Info) Description 09/17/2013 Historical Note [facility] Chance [employer] System Devyn Vásquez MD [address] [place] [address] [phone] Social History Tobacco Use Types Packs/Day Years [...] [facility] [address] [facility] [address] [place] [phone] Brenda Clay MD [address] [facility] [address] [place] [address] 04/15/2026 10:00 AM EDT Office Visit [facility]ATHA Primary [facility] at [facility] [address] [facility] [address] [place] [address] Sena Dominguez PA [address] [facility] [place] [address] documented as of this encounter Visit Diagnoses Not on filedocumented in this encounter Care Teams Unmanned Equipment Operator Relationship Specialty Start Date End Date Meme Steel MD [address] [place] [address] 105 [place] [address] PCP - General Pediatrics 06/05/18 04/25/22 No Pcp, Pcp PCP - General 06/08/22 07/19/22 Guadalupe Mcbride MD PCP - General Family Medicine 07/20/22 11/01/23 Sena Dominguez PA [address] [place] [address] [place] [address] PCP - BRADY Physician Off Track Betting Manager 11/02/23 Levy Barry MD [address] [place] [address] [place] [address] PCP - General Family Medicine 12/20/23 documented as of this encounter
--- OUTSIDE RECORDS SUMMARY | 2025-07-31 12:10 | XMS_ITS | Encounter Summary ---
Author Organization [facility] work ([facility]) Address [address] [place] [address] Care Team Providers Care Oyster Culturist Name Role Phone Meme Steel MD Primary Care Provider [phone] Pcp, Pcp Primary Care Provider Unavailabl Guadalupe Bardales MD Primary Care Provider [phone] Sena Dominguez Unavailable Levy Barry MD Primary Care Provider Unavailab le Source Comments The information that you have received may contain highly confidential and/or federally protected health information. This information has been disclosed to you from records protected by [facility]. The law prohibits you from [...] please contact the sender immediately.[facility] ([facility]) Encounter Details Date Type Department Care Team (Late st Contact Info) Description 11/21/2013 Historical Note [facility] [employer] System Devyn Vásquez MD [address] [place] [address] [phone] Social History Tobacco Use Types Packs/Day Years [...] CARRILLO - [facility] at [facility] [address] [facility] [address] [place] [phone] Brenda Clay MD [address] [facility] [address] [place] [phone] 04/15/2026 10:00 AM EDT Office Visit LEATHA [facility] at [facility] [address] [facility] [address] [place] [address] Sena Dominguez PA [address] [facility] [place] [address] documented as of this encounter Visit Diagnoses Not on filedocumented in this encounter Care Teams Oyster Culturist Relationship Specialty Start Date End Date Meme Steel MD [address] [place] [address] 105 [place] [address] PCP - General Pediatrics 06/05/18 04/25/22 No Pcp, Pcp PCP - General 06/08/22 07/19/22 Guadalupe Mcbride MD PCP - General Family Medicine 07/20/22 11/01/23 Sena Dominguez PA [address] [place] [address] [place] [address] PCP - BRADY Physician Wet Crown Blocking Operator 11/02/23 Levy Barry MD [address] [place] [address] [place] [address] PCP - General Family Medicine 12/20/23 documented as of this encounter
--- OUTSIDE RECORDS SUMMARY | 2025-07-31 12:10 | XMS_ITS | Encounter Summary ---
Author Organization [facility] work ([facility]) Address [address] [place] [address] Care Team Providers Care Viner Operator Name Role Phone Meme Steel MD Primary Care Provider [phone] Pcp, Pcp Primary Care Provider Unavailabl Guadalupe Bardales MD Primary Care Provider [phone] Sena Dominguez Unavailable [phone] Levy Barry MD Primary Care Provider Unavailab le Source Comments The information that you have received may contain highly confidential and/or federally protected health information. This information has been disclosed to you from records protected by [employer] [facility]. The law prohibits you from making [...] please contact the sender immediately.[facility] ([facility]) Encounter Details Date Type Department Care Team (Late st Contact Info) Description 11/21/2013 Historical Note [facility] [employer] System Devyn Vásquez MD [address] [place] [address] [phone] Social History Tobacco Use Types Packs/Day Years [...] CARRILLO - [facility] [address] [facility] [address] [place] [phone] Brenda Clay MD [address] [facility] [address] [place] [address] 04/15/2026 10:00 AM EDT Office Visit LEATHA Primary [facility] at [facility] [address] [facility] [address] [place] [address] Sena Dominguez PA [address] [facility] [place] [address] documented as of this encounter Visit Diagnoses Not on filedocumented in this encounter Care Teams Viner Operator Relationship Specialty Start Date End Date Meme Steel MD [address] [place] [address] 105 [place] [address] PCP - General Pediatrics 06/05/18 04/25/22 No Pcp, Pcp PCP - General 06/08/22 07/19/22 Guadalupe Mcbride MD PCP - General Family Medicine 07/20/22 11/01/23 Sena Dominguez PA [address] [place] [address] [place] [address] PCP - BRADY Physician Divisional Human Resources Director 11/02/23 Levy Barry MD [address] [place] [address] [place] [address] PCP - General Family Medicine 12/20/23 documented as of this encounter
--- OUTSIDE RECORDS SUMMARY | 2025-07-31 12:10 | XMS_ITS | Encounter Summary ---
Author Organization [facility] work ([facility]) Address [address] [place] [address] Care Team Providers Care Nuclear Medical Tech Name Role Phone Meme Steel MD Primary Care Provider [phone] No Pcp, Pcp Primary Care Provider Unavailabl Guadalupe Bardales MD Primary Care Provider [phone] Sena Dominguez Unavailable [phone] Levy Barry MD Primary Care Provider Unavailab le Source Comments The information that you have received may contain highly confidential and/or federally protected health information. This information has been disclosed to you from records protected by [facility]. The law prohibits you [...] error, please contact the sender immediately.[facility] ([facility]) Encounter Details Date Type Department Care Team (Late st Contact Info) Description 01/24/2013 Historical Note [facility] [email or web address] System Devyn Vásquez MD [address] [place] [address] [phone] Social History Tobacco Use Types Packs/Day Years [...] LEATHA CARRILLO - [facility] [address] [facility] [address] [place] [phone] Brenda Clay MD [address] [facility] [address] [place] [address] 04/15/2026 10:00 AM EDT Office Visit LEATHA Primary [facility] at [facility] + [facility] [address] [facility] [address] [place] [address] Sena Dominguez PA [address] [facility] [place] [address] documented as of this encounter Visit Diagnoses Not on filedocumented in this encounter Care Teams Nuclear Medical Tech Relationship Specialty Start Date End Date Meme Steel MD [address] [place] [address] 105 [place] [address] PCP - General Pediatrics 06/05/18 04/25/22 No Pcp, Pcp PCP - General 06/08/22 07/19/22 Guadalupe Mcbride MD PCP - General Family Medicine 07/20/22 11/01/23 Sena Dominguez PA [address] [place] [address] [place] [address] PCP - BRADY Physician Basketball Scout 11/02/23 Levy Barry MD [address] [place] [address] [place] [address] PCP - General Family Medicine 12/20/23 documented as of this encounter
--- OUTSIDE RECORDS SUMMARY | 2025-07-31 12:10 | XMS_ITS | Encounter Summary ---
Author Organization [facility] work ([facility]) Address [address] [place] [address] Care Team Providers Care Electrician Aircraft Name Role Phone Meme Steel MD Primary Care Provider [phone] Pcp, Pcp Primary Care Provider Unavailabl Guadalupe Bardales MD Primary Care Provider [phone] Sena Dominguez Unavailable [phone] Levy Barry MD Primary Care Provider Unavailab le Source Comments The information that you have received may contain highly confidential and/or federally protected health information. This information has been disclosed to you from records protected by [facility]. The law prohibits you from [...] immediately.[facility] ([facility]) Encounter Details Date Type Department Care Team (Late st Contact Info) Description 01/02/2014 Historical Note [facility] [employer] System Devyn Vásquez MD [address] [place] [address] [phone] Social History Tobacco Use Types Packs/Day Years [...] LEATHA CARRILLO - [facility] [address] [facility] [address] [place] [phone] Brenda Clay MD [address] [facility] [address] [place] [address] 04/15/2026 10:00 AM EDT Office Visit [facility]HA [facility] at [facility] + [facility] [address] [facility] [address] [place] [address] Sena Dominguez PA [address] [facility] [place] [address] documented as of this encounter Visit Diagnoses Not on filedocumented in this encounter Care Teams Electrician Aircraft Relationship Specialty Start Date End Date Meme Steel MD [address] [place] [address] 105 [place] [address] PCP - General Pediatrics 06/05/18 04/25/22 No Pcp, Pcp PCP - General 06/08/22 07/19/22 Guadalupe Mcbride MD PCP - General Family Medicine 07/20/22 11/01/23 Sena Dominguez PA [address] [place] [address] [place] [address] PCP - BRADY Physician Aluminum Siding Mechanic 11/02/23 Levy Barry MD [address] [place] [address] [place] [address] PCP - General Family Medicine 12/20/23 documented as of this encounter
--- OUTSIDE RECORDS SUMMARY | 2025-07-31 12:10 | XMS_ITS | Encounter Summary ---
Author Organization [facility] work ([facility]) Address [address] [place] [address] Care Team Providers Care Transcription Typist Name Role Phone Meme Steel MD Primary Care Provider No Pcp, Pcp Primary Care Provider Unavailabl Guadalupe Bardales MD Primary Care Provider [phone] Sena Dominguez Unavailable [phone] Levy Barry MD Primary Care Provider Unavailab le Source Comments The information that you have received may contain highly confidential and/or federally protected health information. This information has been disclosed to you from records protected by [facility]. The law prohibits you from [...] please contact the sender immediately.[facility] ([facility]) Encounter Details Date Type Department Care Team (Late st Contact Info) Description 09/17/2013 Historical Note [facility] ActionFlow System Devyn Vásquez MD [address] [place] [address] [phone] Social History Tobacco Use Types Packs/Day Years [...] - [facility] [address] [facility] [facility] [address] [place] [phone] Brenda Clay MD [address] [facility] [address] [place] [phone] 04/15/2026 10:00 AM EDT Office Visit [facility] [address] [facility] [address] [place] [address] Sena Dominguez PA [address] [facility] [place] [address] documented as of this encounter Visit Diagnoses Not on filedocumented in this encounter Care Teams Transcription Typist Relationship Specialty Start Date End Date Meme Steel MD [address] [place] [address] [address] [place] [address] PCP - General Pediatrics 06/05/18 04/25/22 No Pcp, Pcp PCP - General 06/08/22 07/19/22 Guadalupe Mcbride MD PCP - General Family Medicine 07/20/22 11/01/23 Sena Dominguez PA [address] [place] [address] [place] [address] PCP - BRADY Physician Senior Web Analyst 11/02/23 Levy Barry MD [address] [place] [address] [place] [address] PCP - General Family Medicine 12/20/23 documented as of this encounter
--- OUTSIDE RECORDS SUMMARY | 2025-07-31 12:10 | XMS_ITS | Encounter Summary ---
Author Organization [facility] work ([facility]) Address [address] [place] [address] Care Team Providers Care Social Media Campaign Manager Name Role Phone Meme Steel MD Primary Care Provider No Pcp, Pcp Primary Care Provider Unavailabl Guadalupe Bardales MD Primary Care Provider [phone] Sena Dominguez Unavailable [phone] Levy Barry MD Primary Care Provider Unavailab le Source Comments The information that you have received may contain highly confidential and/or federally protected health information. This information has been disclosed to you from records protected by [facility]. The law prohibits you from [...] please contact the sender immediately.[facility] ([facility]) Encounter Details Date Type Department Care Team (Late st Contact Info) Description 11/21/2013 Historical Note SVMG [employer] System Devyn Vásquez MD [address] [place] [address] [phone] Social History Tobacco Use Types Packs/Day Years [...] LEATHA CARRILLO - [facility] [address] [facility] [address] [place] [phone] Brenda Clay MD [address] [facility] [address] [place] [phone] 04/15/2026 10:00 AM EDT Office Visit [facility] at [facility] + [facility] [address] [facility] [address] [place] [phone] Sena Dominguez PA [address] [facility] [place] [address] documented as of this encounter Visit Diagnoses Not on filedocumented in this encounter Care Teams Social Media Campaign Manager Relationship Specialty Start Date End Date Meme Steel MD [address] [place] [address] 105 [place] [address] PCP - General Pediatrics 06/05/18 04/25/22 No Pcp, Pcp PCP - General 06/08/22 07/19/22 Guadalupe Mcbride MD PCP - General Family Medicine 07/20/22 11/01/23 Sena Dominguez PA [address] [place] [address] [place] [address] PCP - BRADY Physician Glass Laminating Operator 11/02/23 Levy Barry MD [address] [place] [address] [place] [address] PCP - General Family Medicine 12/20/23 documented as of this encounter
--- OUTSIDE RECORDS SUMMARY | 2025-07-31 12:10 | XMS_ITS | Encounter Summary ---
Author Organization [facility] work ([facility]) Address [address] [place] [address] Care Team Providers Care Balloon Seller Name Role Phone Meme Steel MD Primary Care Provider [phone] No Pcp, Pcp Primary Care Provider Unavailabl Guadalupe Bardales MD Primary Care Provider [phone] Sena Dominguez Unavailable [phone] Levy Barry MD Primary Care Provider Unavailab le Source Comments The information that you have received may contain highly confidential and/or federally protected health information. This information has been disclosed to you from records protected by [facility]. The law prohibits [...] the sender immediately.[facility] ([facility]) Encounter Details Date Type Department Care Team (Late st Contact Info) Description 01/14/2013 Historical Note SVMG Symbiotec Pharmalab System Devyn Vásquez MD [address] [place] [address] [phone] Social History Tobacco Use Types Packs/Day Years [...] CARRILLO - [facility] [address] [facility] [address] [place] [phone] Brenda Clay MD [address] [facility] [address] [place] [phone] 04/15/2026 10:00 AM EDT Office Visit [facility] at [facility] + [facility] [address] [facility] [address] [place] [phone] Sena Dominguez PA [address] [facility] [place] [address] documented as of this encounter Visit Diagnoses Not on filedocumented in this encounter Care Teams Balloon Seller Relationship Specialty Start Date End Date Meme Steel MD [address] [place] [address] 105 [place] [address] PCP - General Pediatrics 06/05/18 04/25/22 No Pcp, Pcp PCP - General 06/08/22 07/19/22 Guadalupe Mcbride MD PCP - General Family Medicine 07/20/22 11/01/23 Sena Dominguez PA [address] [place] [address] [place] [address] PCP - BRADY Physician Contact Officer 11/02/23 Levy Barry MD [address] [place] [address] [place] [address] PCP - General Family Medicine 12/20/23 documented as of this encounter
--- OUTSIDE RECORDS SUMMARY | 2025-07-31 12:10 | XMS_ITS | Encounter Summary ---
Author Organization [facility] work ([facility]) Address [address] [place] [address] Care Team Providers Care It Program Manager Name Role Phone Meme Steel MD Primary Care Provider [phone] No Pcp, Pcp Primary Care Provider Unavailabl Guadalupe Bardales MD Primary Care Provider [phone] Sena Dominguez Unavailable [phone] Levy Barry MD Primary Care Provider Unavailab le Source Comments The information that you have received may contain highly confidential and/or federally protected health information. This information has been disclosed to you from records protected by [facility]. The law prohibits you from making [...] the sender immediately.[facility] ([facility]) Encounter Details Date Type Department Care Team (Late st Contact Info) Description 11/21/2013 Historical Note [facility]G Artwardly System Devyn Vásquez MD [address] [place] [address] [phone] Social History Tobacco Use Types Packs/Day Years [...] - [facility] [address] [facility] [address] [place] [phone] Brenda Clay MD [address] [facility] [address] [place] [phone] 04/15/2026 10:00 AM EDT Office Visit [facility] at [facility] [address] [facility] [address] [place] [phone] Sena Dominguez PA [address] [facility] [place] [address] documented as of this encounter Visit Diagnoses Not on filedocumented in this encounter Care Teams It Program Manager Relationship Specialty Start Date End Date Meme Steel MD [address] [place] [address] 105 [place] [address] PCP - General Pediatrics 06/05/18 04/25/22 No Pcp, Pcp PCP - General 06/08/22 07/19/22 Guadalupe Mcbride MD PCP - General Family Medicine 07/20/22 11/01/23 Sena Dominguez PA [address] [place] [address] [place] [address] PCP - BRADY Physician Project Management Instructor 11/02/23 Levy Barry MD [address] [place] [address] [place] [address] PCP - General Family Medicine 12/20/23 documented as of this encounter
--- OUTSIDE RECORDS SUMMARY | 2025-07-31 12:10 | XMS_ITS | Encounter Summary ---
Author Organization [facility] work ([facility]) Address [address] [place] [address] Care Team Providers Care Private Mortgage Banker Safe Name Role Phone Meme Steel MD Primary Care Provider [phone] No Pcp, Pcp Primary Care Provider Unavailabl Guadalupe Bardales MD Primary Care Provider [phone] Sena Dominguez Unavailable [phone] Levy Barry MD Primary Care Provider Unavailab le Source Comments The information that you have received may contain highly confidential and/or federally protected health information. This information has been disclosed to you from records protected by [facility]. The law prohibits you from making [...] please contact the sender immediately.[facility] ([facility]) Encounter Details Date Type Department Care Team (Late st Contact Info) Description 11/21/2013 Historical Note SVMG License Buddy System Devyn Vásquez MD [address] [place] [address] [phone] Social History Tobacco Use Types Packs/Day Years [...] CARRILLO - [facility] [address] [facility] [address] [place] [phone] Brenda Clay MD [address] [facility] [address] [place] [phone] 04/15/2026 10:00 AM EDT Office Visit LE[facility]HA [facility] at [facility] + [facility] [address] [facility] [address] [place] [phone] Sena Dominguez PA [address] [facility] [place] [address] documented as of this encounter Visit Diagnoses Not on filedocumented in this encounter Care Teams Private Mortgage Banker Safe Relationship Specialty Start Date End Date Meme Steel MD [address] [place] [address] 105 [place] [address] PCP - General Pediatrics 06/05/18 04/25/22 No Pcp, Pcp PCP - General 06/08/22 07/19/22 Guadalupe Mcbride MD PCP - General Family Medicine 07/20/22 11/01/23 Sena Dominguez PA [address] [place] [address] [place] [address] PCP - BRADY Physician Otr Tanker Truck Driver 11/02/23 Levy Barry MD [address] [place] [address] [place] [address] PCP - General Family Medicine 12/20/23 documented as of this encounter
== END 2025-07-31 11:56 | disposition home or self-care (01) ==
LOC: HO.HOS 10:10
PROVIDERS: Visit Provider Physician Assistant
DX: S82.831A Other fracture of upper and lower end of right fibula, initial encounter for closed fracture (principal)
CPT/HCPCS: 29515; 99213

== ENCOUNTER → 2025-07-31 10:10 | Outpatient (BNVA) | payer OTHER, SELFPAY | PROVIDERS: Visit Provider Physician Assistant | DX: S82.831A Other fracture of upper and lower end of right fibula, initial encounter for closed fracture (principal); X50.1XXA Overexertion from prolonged static or awkward postures, initial encounter; Y93.01 Activity, walking, marching and hiking; Y92.9 Unspecified place or not applicable; Y99.9 Unspecified external cause status | CPT/HCPCS: 29515 ==

== ENCOUNTER 2025-08-05 07:04 | Day surgery (SDC) | payer OTHER, SELFPAY ==
--- OUTSIDE RECORDS SUMMARY | 2025-07-28 20:28 | XMS_ITS | Continuity of Care Document ---
Author Organization [facility] Address [address] [place] [address] Phone [phone] Care Team Providers Care Supervisor Mill Name Role Phone Guadalupe Mcbride MD Care Team Information Receiv er Unavailable ANA ROSA RAMOS M.D. Care Team Information Receiv er Unavailable Guadalupe Mcbride MD Primary Care Physician Unava ilable Allergies and adverse reactions Description No Known Drug Allergies Medications Active Medications SIG Qnty Indications Ordering Provider Date [id number] Tablets 1 by mouth every day 90tabs Ana Rosa Ramos M.D. 05/28/2024 OCP Unknown Barb Mlswref20fj Tablets Unknown Propranolol AYA08of Tablets Unknown Ygjllemfv7bp Tablets Unknown Vitamin D-325mcg (1000 Ut) Capsules Unknown Fluoxetine PES65xy Capsules Unknown History Medications Wegovy0.25mg/0.5ML Solution Auto-Inject inject 0.25 mg weekly x 4 weeks 2ml Ana Rosa Ramos M.D. 03/25/2024 - 06/26/2024 Sertraline PIZ009zc Tablets Un known - 06/26/2024 Results Test Acquired Date Facility Test Result H/L Range Note TSH 07/05/2025 [facility] (Use [facility] Other Sites) [address] [facility] [place] [address] [phone] TSH 1.87 mIU/L Normal 1 T4, Free 07/05/2025 [facility] (Use [facility] Other [facility]) [address] [place] [address] T4, Free 1.3 ng/dL Normal 0.8-1.8 Vitamin D,25-Oh,Total,Ia 07/05/2025 [facility] (Use [facility] Other [facility]) [address] [place] [address] Vitamin D,25-Oh,Total,Ia 29 ng/mL Low 30-100 2 Enhanced PDF Report [id number] 07/05/2025 [facility] (Use [facility]) [address] [place] [address] [phone] Enhanced PDF Report [id number] PDF IMAGE OFF C-Peptide 04/03/2024 [facility] (Use [facility] Other Sites) [address] [place] [address] [phone] C-Peptide 1.72 ng/mL Normal 0.80-3.8 5 3 Insulin 04/03/2024 [facility] (Use [facility] Other Sites) [address] [address] Insulin 10.9 uIU/mL Normal 4 Basic Metabolic Panel 04/03/2024 [facility] (Use [facility] Other Sites) [address] [address] [phone] Glucose 82 mg/dL Normal 65-99 5 Urea [...] [facility] Other Sites) [address] [place] [phone] TSH 4.14 mIU/L Normal 7 T4, Free 04/03/2024 [facility] (Use [facility] Other Sites) [address] [place] [address] [phone] T4, Free 1.1 ng/dL Normal 0.8-1.4 Thyroid Peroxidase And Thyroglobulin Abs 04/03/2024 [facility] (Use [facility] Other Sites) [address] [place] [address] Thyroglobulin Antibodies 1 IU/mL Normal < or = 1 Thyroid Peroxidase Antibodies 61 IU/mL High <9 Tsi (Thyroid Stimulating Immunoglobulin) 04/03/2024 [facility] (Use [facility] Other Sites) [address] [place] [id number] Tsi (Thyroid Stimulating Immunoglobulin) <89 %baseline <140 8 PTH Intact And Calcium 04/03/2024 [facility] (Use [facility] Other Sites) [address] [place] [address] [phone] Parathyroid Hormone, Intact 68 pg/mL Normal 16-77 9 Calcium 9.1 mg/dL Normal 8.9-10.4 Vitamin D,25-Oh,Total,Ia 04/03/2024 [facility] (Use [facility] Other Sites) [address] [place] [address] [phone] Vitamin D,25-Oh,Total,Ia 39 ng/mL Normal 30-100 10 Albumin 04/03/2024 [facility] (Use [facility] Other Sites) [address] [place] [phone] Albumin 4.0 g/dL Normal 3.6-5.1 Clinical PDF Report [id number] 04/03/2024 [facility] (Use [facility] Other Sites) [address] [place] 5639969 [phone] Clinical PDF Report [id number] PDF IMAGE OFF Enhanced PDF Report [id number] 04/03/2024 [facility] (Use [facility] For Other Sites) [address] [place] [address] Enhanced PDF Report [id number] PDF IMAGE OFF 1 Reference Range > [...] D2 and D3 fractions is required, the [facility] Medicine[facility]D(TM) 25-OH VIT D, (D2,D3), LC/MS/MS is recommended: order code 90543 (patients >2yrs). See Note 1 Note 1 For additional information, please refer to http://education.Bitave Lab/faq/RLB234 (This link is being provided for informational/ educational purposes only.) 3 FASTING:YES FASTING: YES 4 Reference Range < or = 18.4 Risk: Optimal < or = 18.4 Moderate NA High >18.4 Adult cardiovascular event risk category cut points (optimal, moderate, high) are based on Insulin Reference Interval studies performed at [facility] in 2021. 5 Fasting reference in terval [...] of this assay have been determined by [facility], [place], [place]. The modifications have not been cleared [...] D, (D2,D3), LC/MS/MS is recommended: order code 20750 (patients >2yrs). 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
[2025-08-01 08:14] VITALS: BMI 45.2
--- NOTE | 2025-08-01 09:48 | HO.ANESPROP2 ---
Documented by User: Cheryl Streeter NP 08/01/25 09:48 HPI - Anesthesia Eval Consult details Narrative: 20 yr old female for right ankle fracture ORIF PMFSH Active Problems Active Problems: All Active Problems (Updated 07/28/25 @ 12:58 by Zoila Pelletier PA-C) Closed fracture of right distal fibula (Acute) Past Medical History Medical History Hypothyroid Depression Anxiety Surgical History Surgical History Hx of wisdom tooth extraction Social History Social History Housing Other:: dormitory Are you a primary critical care nurse specialist to a significant other at home: No Do you presently have visiting nurse or other home services: No Alcohol intake: current Alcohol intake frequency: a few times a week Comment: surgery today due to fall Patient Tobacco Use Status: Never used Tobacco Have you been hit, kicked, punched, or otherwise hurt by someone within the past year? If so, by whom?: No Are you DNR?: No Advance Directives: No Advance Directives Information Provided: Yes FDLMP: I take a pill Poor oral hygiene: No Current occupational status: employed Current occupation: [employer], right hand dominant Meds Allergies Allergy/AdvReac Type Severity Reaction Status Date / Time No Known Allergies Allergy Verified 08/05/25 07:12 Home Medications ?Medication ?Instructions ?Recorded ?Confirmed ?Last Taken ?Type fexofenadine 180 mg tablet 180 mg PO DAILY 07/28/25 08/05/25 Unknown History fluoxetine 40 mg capsule 40 mg PO DAILY 07/28/25 08/05/25 Unknown History levothyroxine 25 mcg tablet 25 mcg PO DAILY 07/28/25 08/05/25 Unknown History lorazepam 2 mg tablet 2 mg PO BEDTIME PRN Anxiety 07/28/25 08/05/25 Unknown History norethindrone 1 mg-ethinyl 1 tab PO DAILY 07/28/25 08/05/25 Unknown History estradiol 20 mcg (21)-iron 75 mg (7) tablet (Aurovela Fe 1-20 (28)) propranolol 60 mg capsule,24 60 mg PO DAILY 07/28/25 08/05/25 Unknown History hr,extended release Exam Height,Weight and Vital Signs: Height 5 ft 6 in Weight 127.006 kg Documented by User: Leydi Bennett MD 08/05/25 09:35 PMFSH Past Medical History Medical History Hypothyroid Depression Anxiety Family History Family history of problems with anesthesia: No Surgical History Surgical History Hx of wisdom tooth extraction History of Problems with Anesthesia: No Social History Social History Housing Other:: dormitory Are you a primary critical care nurse specialist to a significant other at home: No Do you presently have visiting nurse or other home services: No Alcohol intake: current Alcohol intake frequency: a few times a week Comment: surgery today due to fall Patient Tobacco Use Status: Never used Tobacco Have you been hit, kicked, punched, or otherwise hurt by someone within the past year? If so, by whom?: No Are you DNR?: No Advance Directives: No Advance Directives Information Provided: Yes FDLMP: I take a pill Poor oral hygiene: No Current occupational status: employed Current occupation: [employer], right hand dominant Meds Allergies Allergy/AdvReac Type Severity Reaction Status Date / Time No Known Allergies Allergy Verified 08/05/25 07:12 Home Medications ?Medication ?Instructions ?Recorded ?Confirmed ?Last Taken ?Type fexofenadine 180 mg tablet 180 mg PO DAILY 07/28/25 08/05/25 Unknown History fluoxetine 40 mg capsule 40 mg PO DAILY 07/28/25 08/05/25 Unknown History levothyroxine 25 mcg tablet 25 mcg PO DAILY 07/28/25 08/05/25 Unknown History lorazepam 2 mg tablet 2 mg PO BEDTIME PRN Anxiety 07/28/25 08/05/25 Unknown History norethindrone 1 mg-ethinyl 1 tab PO DAILY 07/28/25 08/05/25 Unknown History estradiol 20 mcg (21)-iron 75 mg (7) tablet (Aurovela Fe 1-20 (28)) propranolol 60 mg capsule,24 60 mg PO DAILY 07/28/25 08/05/25 Unknown History hr,extended release Exam Airway Mallampati Class: III TM Dist: <=3cm Neck ROM: Full Heart: rrr Lungs: cta Assessment and Plan Assessment Anesthesia Assessment: Anesthesia Plan Discussed and Chart Reviewed Final Anesthetic Review Family History of Problems with Anesthesia: No History of Problems with Anesthesia: No NPO: Yes ASA Class: II Final Preanesthetic Review: No Changes in Pt Med Stat, Meds/Allgs Chart Reviewed, Consent Obtained/Reviewed and Anes Risks/Benef Reviewed Patient Risk: Intermediate Procedure Risk: Low Anesthetic Plan Anesthetic Plan: MAC: Disposition: Standard PACU
[2025-08-05] VITALS (8 sets, daily range): BP systolic 107–142; BP diastolic 51–76; PULSE 67–105; RESP 14–18; TEMP 36.7–37.3; O2SAT 97–100; BMI 45.2
--- NOTE | ~2025-08-05 | FL_ITS ---
EXAMINATION: XR FLUOROSCOPY WITH IMAGES CLINICAL INFORMATION: Right ankle ORIF COMPARISON: Radiographs right ankle 07/26/2025. TECHNIQUE: Fluoroscopy provided to: Dr. Fernández Fluoroscopy time: 32 seconds DAP: 20.1 uGycm2 Images: 2 FINDINGS: 2 fluoroscopic spot images of the right ankle obtained during ORIF of fracture. Please refer to the full operative report for details. FL/FL guidance in OR IMPRESSION: Fluoroscopic guidance. Electronically signed by: Shar Mcdowell MD 08/05/2025 01:36 PM EDT
[2025-08-05] MEDS: Lactated Ringers 1,000 ML 100 ML IVCONT (07:40)
--- NOTE | 2025-08-05 10:03 | MHC.SHP ---
Pre-Procedural Eval Section A - 24 Hr Update-Section A only Date of Service: 08/05/25 The patient is an INPATIENT: No Changes since office visit: No Cold of Flu in the past 2 weeks, No New Medical Problems, No Changes in Medication and No Patient answered all questions The patient has been examined within 24 hours of the surgical procedure. The History & Physical has been completed within 30 days and I have reviewed it.: Yes Section B - Complete if H&P > 30 days Chief Complaint: Displaced spiral fracture of shaft of right fibula Allergies: Allergies Allergy/AdvReac Type Severity Reaction Status Date / Time No Known Allergies Allergy Verified 08/05/25 07:12 Plan I have reviewed the history and physical and performed a pertinent physical examination on my patient. No changes have occurred unless specified. Time Spent With Patient Time: Total time managing care of this patient today ____ minutes.
--- NOTE | 2025-08-05 11:59 | W.PM.OPN ---
Operative Note Operative Note Date of Service: 08/05/25 Narrative: Date of Service: 08/05/25 Pre-op diagnosis: Right distal fibula fracture Post-op diagnosis: same Procedure: 1) ORIF right fibula 2)ORIF right syndesmosis Implants: Styrker 6 hole lateral fibular plate [facility] syndesmosis cinch x 1 Surgeon: Xavier Fernández MD Anesthesia: GLMA and regional Was an Bulk Coolers Installer used for this Procedure?: Yes Bulk Coolers Installer: Nayeli Perez Estimated blood loss (mL): 25 Tourniquet time (min): 40 IV fluids (mL): 750 Pathology: none sent Condition: stable Disposition: PACU Procedure in detail: Patient was brought to the operating room and placed supine on the operative table. All bony prominences were well padded and a time-out was called to identify proper site proper procedure proper surgeon. IV antibiotics per weight were administered. I began by exsanguinating limb is slightly tourniquet to 300 mm Hg. I then made a standard posterolateral incision over the fibula. Full-thickness flaps were taken down to the fibular shaft and distal fibula. The fracture was identified and cleaned with a combination of curette, rongeur and irrigation. A lobster claw was used to provisionally reduce the fracture and a 6 hole distal fibular locking plate was applied using standard AO technique. a 14mm lag screw was placed posteroir to anterior perpendicular to the fracture line using standard AO technique. Biplanar fluoroscopy was used to confirm hardware position and fracture reduction. Once I was satisfied that both of these were acceptable I irrigated copiously and turned my attention to the medial side. The syndesmosis was tested using external rotation test and was found to be unstable with medial clear space opening > 5mm. I then drilled a wire at the level of the syndesmosis from lateral to medial and slightly posterior to anterior. A vaughn incision was made medially and the cinch was passed and a button attached medially. A large C clamp was used to tighten the syndesmosis and the cinch was tightened. An external rotation stress test was then performed and the medial clear space opening was less than 3 mm. Therefore all instrumentation was removed and copious irrigation was performed. Absorbable suture and adalgisa were used for closure and the patient was placed into sterile dressings and a well-padded posterior splint. Tourniquet was let down and the patient was extubated brought to recovery room in stable condition there were no known complications.
== END 2025-08-05 13:15 | disposition home or self-care (01) ==
PROVIDERS: Visit Provider Orthopaedic Surgery
PROC: (CPT 27758; principal; 2025-08-05 09:50)
DX: S82.441A Displaced spiral fracture of shaft of right fibula, initial encounter for closed fracture (principal); M79.671 Pain in right foot; W19.XXXA Unspecified fall, initial encounter; Y93.9 Activity, unspecified; Y92.9 Unspecified place or not applicable; Y99.9 Unspecified external cause status; E03.9 Hypothyroidism, unspecified; F32.A Depression, unspecified; F41.9 Anxiety disorder, unspecified; Z79.899 Other long term (current) drug therapy
CPT/HCPCS: 27758; 27829; 81025; C1713; J0131; J0665; J0690; J1100; J2003; J2004; J2250; J2405; J2704; J2795; J3010

== ENCOUNTER → 2025-08-05 07:04 | Outpatient (BNV) | payer OTHER, SELFPAY | PROVIDERS: Visit Provider Orthopaedic Surgery | DX: S82.891A Other fracture of right lower leg, initial encounter for closed fracture (principal) | CPT/HCPCS: 27792 ==

== ENCOUNTER 2025-08-08 13:20 | Outpatient (AMB) | payer OTHER, SELFPAY ==
--- NOTE | 2025-08-08 14:34 | MHC.OFFVIS ---
Intake Visit Reasons: PO RT ankle ORIF 08/05/25 NE-splint change Allergies No Known Allergies Allergy (Verified 08/05/25 07:12) HPI HPI PO RT ankle ORIF 08/05/25 NE-splint change: Details: Patient comes in today for splint change of her right ankle PFSH Medical History Hypothyroid Depression Anxiety Surgical History Hx of wisdom tooth extraction Social History Housing Other:: dormitory Are you a primary wild animal caretaker to a significant other at home: No Do you presently have visiting nurse or other home services: No Alcohol intake: current Alcohol intake frequency: a few times a week Comment: counts correct Patient Tobacco Use Status: Never used Tobacco Current occupational status: employed 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 She will remain nonweightbearing and follow up next week as scheduled Coding Level of Care Code Global (71819) Diagnoses Closed fracture of right distal fibula S82.831A CPT Codes Splint - CPT: 10149-Glnha Leg splint application ([id number])
--- OUTSIDE RECORDS SUMMARY | 2025-08-08 14:34 | XMS_ITS | Encounter Summary ---
Author Organization [facility] work ([facility]) Address [address] [place] [address] Care Team Providers Care Director Of Strategic Partnerships Name Role Phone Meme Steel MD Primary Care Provider No Pcp, Pcp Primary Care Provider Unavailabl Guadalupe Bardales MD Primary Care Provider [phone] Sena Dominguez Unavailable [phone] Levy Barry MD Primary Care Provider Unavailab le Source Comments The information that you have received may contain highly confidential and/or federally protected health information. This information has been disclosed to you from records protected by [facility]. The law prohibits you from [...] error, please contact the sender immediately.[facility] ([facility]) Encounter Details Date Type Department Care Team (Late st Contact Info) Description 2004 Historical Note SVMG N-1-1 System Devyn Vásquez MD [address] [place] [phone] Social History Tobacco Use Types Packs/Day Years [...] Office Visit LEATHA CARRILLO - [facility] [address] [facility] [address] [place] [phone] Brenda Clay MD [address] [facility] [address] [place] [phone] 04/15/2026 10:00 AM EDT Office Visit [facility] [address] [facility] [address] [place] [address] Sena Dominguez PA [address] [facility] [place] [address] documented as of this encounter Visit Diagnoses Not on filedocumented in this encounter Care Teams Director Of Strategic Partnerships Relationship Specialty Start Date End Date Meme Steel MD [address] [place] [address] [place] [address] PCP - General Pediatrics 06/05/18 04/25/22 No Pcp, Pcp PCP - General 06/08/22 07/19/22 Guadalupe Mcbride MD PCP - General Family Medicine 07/20/22 11/01/23 Sena Dominguez PA [address] [place] [address] [place] [address] PCP - BRADY Physician Supervisor Felting 11/02/23 Levy Barry MD [address] [place] [address] [place] [address] PCP - General Family Medicine 12/20/23 documented as of this encounter
--- OUTSIDE RECORDS SUMMARY | 2025-08-08 14:34 | XMS_ITS | Encounter Summary ---
Author Organization [facility] work ([facility]) Address [address] [place] [address] Care Team Providers Care Bag Sewer Name Role Phone Meme Steel MD Primary Care Provider [phone] No Pcp, Pcp Primary Care Provider Unavailabl Guadalupe Bardales MD Primary Care Provider [phone] Sena Dominguez Unavailable Levy Barry MD Primary Care Provider Unavailab le Source Comments The information that you have received may contain highly confidential and/or federally protected health information. This information has been disclosed to you from records protected by [facility]. The law prohibits you from making [...] sender immediately.[facility] ([facility]) Encounter Details Date Type Department Care Team (Late st Contact Info) Description 2004 Historical Note [facility] [employer] System Devyn Vásquez MD [address] [place] [address] [phone] Social History Tobacco Use Types Packs/Day Years [...] LEATHA CARRILLO - [facility] [address] [facility] [place] [phone] Brenda Clay MD [address] [facility] [address] [place] [address] 04/15/2026 10:00 AM EDT Office Visit [facility] [address] [place] [address] Sena Dominguez PA [address] [facility] [place] [address] documented as of this encounter Visit Diagnoses Not on filedocumented in this encounter Care Teams Bag Sewer Relationship Specialty Start Date End Date Meme Steel MD [address] [place] [address] [place] [address] PCP - General Pediatrics 06/05/18 04/25/22 No Pcp, Pcp PCP - General 06/08/22 07/19/22 Guadalupe Mcbride MD PCP - General Family Medicine 07/20/22 11/01/23 Sena Dominguez PA [address] [place] [address] [place] [address] PCP - BRADY Physician Emergency Service Worker 11/02/23 Levy Barry MD [address] [place] [address] [place] [address] PCP - General Family Medicine 12/20/23 documented as of this encounter
--- OUTSIDE RECORDS SUMMARY | 2025-08-08 14:34 | XMS_ITS | Encounter Summary ---
Author Organization [facility] work ([facility]) Address [address] [place] [address] Care Team Providers Care Panel Fitter Name Role Phone Meme Steel MD Primary Care Provider [phone] Pcp, Pcp Primary Care Provider Unavailabl Guadalupe Bardales MD Primary Care Provider [phone] Sena Dominguez Unavailable [phone] Levy Barry MD Primary Care Provider Unavailab le Source Comments The information that you have received may contain highly confidential and/or federally protected health information. This information has been disclosed to you from records protected by [facility]. The law prohibits [...] please contact the sender immediately.[facility] ([facility]) Encounter Details Date Type Department Care Team (Late st Contact Info) Description 2004 Historical Note [facility] [employer] Devyn Vásquez MD [address] [place] [address] [phone] Social History Tobacco Use Types Packs/Day Years [...] CARRILLO - [facility] [address] [facility] [address] [place] [phone] Brenda Clay MD [address] [facility] [address] [place] [address] 04/15/2026 10:00 AM EDT Office Visit LEATHA [facility] at [facility] + [facility] [address] [place] [address] Sena Dominguez PA [address] [facility] [place] [address] documented as of this encounter Visit Diagnoses Not on filedocumented in this encounter Care Teams Panel Fitter Relationship Specialty Start Date End Date Meme Steel MD [address] [place] [address] 105 [place] [address] PCP - General Pediatrics 06/05/18 04/25/22 No Pcp, Pcp PCP - General 06/08/22 07/19/22 Guadalupe Mcbride MD PCP - General Family Medicine 07/20/22 11/01/23 Sena Dominguez PA [address] [place] [address] [place] [address] PCP - BRADY Physician Consulting Sales Executive 11/02/23 Levy Barry MD [address] [place] [address] [place] [address] PCP - General Family Medicine 12/20/23 documented as of this encounter
--- OUTSIDE RECORDS SUMMARY | 2025-08-08 14:34 | XMS_ITS | Encounter Summary ---
Author Organization [facility] work ([facility]) Address [address] [place] [address] Care Team Providers Care Pigment Pusher Name Role Phone Meme Steel MD Primary Care Provider [phone] No Pcp, Pcp Primary Care Provider Unavailabl Guadalupe Bardales MD Primary Care Provider Sena Dominguez Unavailable [phone] Levy Barry MD Primary Care Provider Unavailab le Source Comments The information that you have received may contain highly confidential and/or federally protected health information. This information has been disclosed to you from records protected by [facility]. The law prohibits you [...] please contact the sender immediately.[facility] ([facility]) Encounter Details Date Type Department Care Team (Late st Contact Info) Description 2004 Historical Note [facility] [employer] System Devyn Vásquez MD [address] [place] [address] [phone] Social History Tobacco Use Types Packs/Day Years [...] LEATHA CARRILLO - [facility] [address] [facility] [address] [place] [phone] Brenda Clay MD [address] [facility] [address] [place] [address] 04/15/2026 10:00 AM EDT Office Visit LEATHA [facility] at [facility] + [facility] [address] [facility] [address] [place] [address] Sena Dominguez PA [address] [facility] [place] [address] documented as of this encounter Visit Diagnoses Not on filedocumented in this encounter Care Teams Pigment Pusher Relationship Specialty Start Date End Date Meme Steel MD [address] [place] [address] 105 [place] [address] PCP - General Pediatrics 06/05/18 04/25/22 No Pcp, Pcp PCP - General 06/08/22 07/19/22 Guadalupe Mcbride MD PCP - General Family Medicine 07/20/22 11/01/23 Sena Dominguez PA [address] [place] [address] [place] [address] PCP - BRADY Physician Collateral Clerk 11/02/23 Levy Barry MD [address] [place] [address] [place] [address] PCP - General Family Medicine 12/20/23 documented as of this encounter
--- OUTSIDE RECORDS SUMMARY | 2025-08-08 14:34 | XMS_ITS | Encounter Summary ---
Author Organization [facility] work ([facility]) Address [address] [place] [address] Care Team Providers Care Medical Education Coordinator Name Role Phone Meme Steel MD Primary Care Provider [phone] No Pcp, Pcp Primary Care Provider Unavailabl Guadalupe Bardales MD Primary Care Provider Sena Dominguez Unavailable [phone] Levy Barry MD Primary Care Provider Unavailab le Source Comments The information that you have received may contain highly confidential and/or federally protected health information. This information has been disclosed to you from records protected by [facility]. The law prohibits you [...] please contact the sender immediately.[facility] ([facility]) Encounter Details Date Type Department Care Team (Late st Contact Info) Description 2004 Historical Note [facility] [employer] System Devyn Vásquez MD [address] [place] [address] [phone] Social History Tobacco Use Types Packs/Day Years [...] Visit LEATHA CARRILLO - [facility] [address] [facility] [address] [place] [phone] Brenda Clay MD [address] [facility] [address] [place] [address] 04/15/2026 10:00 AM EDT Office Visit LEATHA [facility] at [facility] + [facility] [address] [facility] [address] [place] [address] Sena Dominguez PA [address] [facility] [place] [address] documented as of this encounter Visit Diagnoses Not on filedocumented in this encounter Care Teams Medical Education Coordinator Relationship Specialty Start Date End Date Meme Steel MD [address] [place] [address] 105 [place] [address] PCP - General Pediatrics 06/05/18 04/25/22 No Pcp, Pcp PCP - General 06/08/22 07/19/22 Guadalupe Mcbride MD PCP - General Family Medicine 07/20/22 11/01/23 Sena Dominguez PA [address] [place] [address] [place] [address] PCP - BRADY Physician Protein Chemist 11/02/23 Levy Barry MD [address] [place] [address] [place] [address] PCP - General Family Medicine 12/20/23 documented as of this encounter
--- OUTSIDE RECORDS SUMMARY | 2025-08-08 14:35 | XMS_ITS | Encounter Summary ---
Author Organization [facility] work ([facility]) Address [address] [place] [address] Care Team Providers Care Associate Editor Name Role Phone Meme Steel MD Primary Care Provider [phone] No Pcp, Pcp Primary Care Provider Unavailabl Guadalupe Bardales MD Primary Care Provider [phone] Sena Dominguez Unavailable [phone] Levy Barry MD Primary Care Provider Unavailab le Source Comments The information that you have received may contain highly confidential and/or federally protected health information. This information has been disclosed to you from records protected by [facility]. The law prohibits you from [...] the sender immediately.[facility] ([facility]) Encounter Details Date Type Department Care Team (Late st Contact Info) Description 2004 Historical Note [facility] [employer] System Devyn Vásquez MD [address] [place] [address] [phone] Social History Tobacco Use Types Packs/Day Years [...] - [facility] at [facility] [address] [facility] [address] [place] [phone] Brenda Clay MD [address] [facility] [address] [place] [address] 04/15/2026 10:00 AM EDT Office Visit [facility]HA [facility] [address] [facility] [address] [place] [address] Sena Dominguez PA [address] [facility] [place] [address] documented as of this encounter Visit Diagnoses Not on filedocumented in this encounter Care Teams Associate Editor Relationship Specialty Start Date End Date Meme Steel MD [address] [place] [address] 105 [place] [address] PCP - General Pediatrics 06/05/18 04/25/22 No Pcp, Pcp PCP - General 06/08/22 07/19/22 Guadalupe Mcbride MD PCP - General Family Medicine 07/20/22 11/01/23 Sena Dominguez PA [address] [place] [address] [place] [address] PCP - BRADY Physician Hogshead Roller 11/02/23 Levy Barry MD [address] [place] [address] [place] [address] PCP - General Family Medicine 12/20/23 documented as of this encounter
--- OUTSIDE RECORDS SUMMARY | 2025-08-08 14:35 | XMS_ITS | Encounter Summary ---
Author Organization [facility] work ([facility]) Address [address] [place] [address] Care Team Providers Care Rfid Engineer Name Role Phone Meme Steel MD Primary Care Provider [phone] Pcp, Pcp Primary Care Provider Unavailabl Guadalupe Bardales MD Primary Care Provider [phone] Sena Dominguez Unavailable [phone] Levy Barry MD Primary Care Provider Unavailab le Source Comments The information that you have received may contain highly confidential and/or federally protected health information. This information has been disclosed to you from records protected by [facility]. The law prohibits you from [...] the sender immediately.[facility] ([facility]) Encounter Details Date Type Department Care Team (Late st Contact Info) Description 2004 Historical Note [facility] [employer] System Devyn Vásquez MD [address] [place] [address] [phone] Social History Tobacco Use Types Packs/Day Years [...] CARRILLO - [facility] [address] [facility] [address] [place] [phone] Brenda Clay MD [address] [facility] [address] [place] [address] 04/15/2026 10:00 AM EDT Office Visit [facility]ATHA [facility] at [facility] + [facility] [address] [facility] [address] [place] [address] Sena Dominguez PA [address] [facility] [place] [address] documented as of this encounter Visit Diagnoses Not on filedocumented in this encounter Care Teams Rfid Engineer Relationship Specialty Start Date End Date Meme Steel MD [address] [place] [address] 105 [place] [address] PCP - General Pediatrics 06/05/18 04/25/22 No Pcp, Pcp PCP - General 06/08/22 07/19/22 Guadalupe Mcbride MD PCP - General Family Medicine 07/20/22 11/01/23 Sena Dominguez PA [address] [place] [address] [place] [address] PCP - BRADY Physician Molding Sander 11/02/23 Levy Barry MD [address] [place] [address] [place] [address] PCP - General Family Medicine 12/20/23 documented as of this encounter
--- OUTSIDE RECORDS SUMMARY | 2025-08-08 14:35 | XMS_ITS | Encounter Summary ---
Author Organization [facility] work ([facility]) Address [address] [place] [address] Care Team Providers Care Personnel Training Officer Name Role Phone Meme Steel MD Primary Care Provider [phone] No Pcp, Pcp Primary Care Provider Unavailabl Guadalupe Bardales MD Primary Care Provider [phone] Sena Dominguez Unavailable [phone] Levy Barry MD Primary Care Provider Unavailab le Source Comments The information that you have received may contain highly confidential and/or federally protected health information. This information has been disclosed to you from records protected by [facility]. The law prohibits you [...] sender immediately.[facility] ([facility]) Encounter Details Date Type Department Care Team (Late st Contact Info) Description 11/14/2006 Historical Note [facility] [employer] System Devyn Vásquez MD [address] [place] [address] [phone] Social History Tobacco Use Types Packs/Day Years [...] [facility] [address] [facility] [address] [place] [phone] Brenda Clay MD [address] [facility] [address] [place] [address] 04/15/2026 10:00 AM EDT Office Visit LEATHA Primary [facility] at [facility] + [facility] [address] [facility] [address] [place] [address] Sena Dominguez PA [address] [facility] [place] [address] documented as of this encounter Visit Diagnoses Not on filedocumented in this encounter Care Teams Personnel Training Officer Relationship Specialty Start Date End Date Meme Steel MD [address] [place] [address] 105 [place] [address] PCP - General Pediatrics 06/05/18 04/25/22 No Pcp, Pcp PCP - General 06/08/22 07/19/22 Guadalupe Mcbride MD PCP - General Family Medicine 07/20/22 11/01/23 Sena Dominguez PA [address] [place] [address] [place] [address] PCP - BRADY Physician Emergency Medicine Medical Director 11/02/23 Levy Barry MD [address] [place] [address] [place] [address] PCP - General Family Medicine 12/20/23 documented as of this encounter
--- OUTSIDE RECORDS SUMMARY | 2025-08-08 14:35 | XMS_ITS | Encounter Summary ---
Author Organization [facility] work ([facility]) Address [address] [place] [address] Care Team Providers Care Feather Sawyer Name Role Phone Meme Steel MD Primary Care Provider [phone] No Pcp, Pcp Primary Care Provider Unavailabl Guadalupe Bardales MD Primary Care Provider [phone] Sena Dominguez Unavailable [phone] Levy Barry MD Primary Care Provider Unavailab le Source Comments The information that you have received may contain highly confidential and/or federally protected health information. This information has been disclosed to you from records protected by [facility]. The law prohibits you [...] immediately.[facility] ([facility]) Encounter Details Date Type Department Care Team (Late st Contact Info) Description 2004 Historical Note [facility] [employer] System Devyn Vásquez MD [address] [place] [address] [phone] Social History Tobacco Use Types Packs/Day Years [...] LEATHA CARRILLO - [facility] [address] [facility] [address] [place] [phone] Brenda Clay MD [address] [facility] [address] [place] [address] 04/15/2026 10:00 AM EDT Office Visit LEATHA [facility] at [facility] [address] [facility] [address] [place] [address] Sena Dominguez PA [address] [facility] [place] [address] documented as of this encounter Visit Diagnoses Not on filedocumented in this encounter Care Teams Feather Sawyer Relationship Specialty Start Date End Date Meme Steel MD [address] [place] [address] 105 [place] [address] PCP - General Pediatrics 06/05/18 04/25/22 No Pcp, Pcp PCP - General 06/08/22 07/19/22 Guadalupe Mcbride MD PCP - General Family Medicine 07/20/22 11/01/23 Sena Dominguez PA [address] [place] [address] [place] [address] PCP - BRADY Physician Conference Specialist 11/02/23 Levy Barry MD [address] [place] [address] [place] [address] PCP - General Family Medicine 12/20/23 documented as of this encounter
--- OUTSIDE RECORDS SUMMARY | 2025-08-08 14:35 | XMS_ITS | Encounter Summary ---
Author Organization [facility] work ([facility]) Address [address] [place] [address] Care Team Providers Care Beauty School Instructor Name Role Phone Meme Steel MD Primary Care Provider [phone] No Pcp, Pcp Primary Care Provider Unavailabl Guadalupe Bardales MD Primary Care Provider [phone] Sena Dominguez Unavailable [phone] Levy Barry MD Primary Care Provider Unavailab le Source Comments The information that you have received may contain highly confidential and/or federally protected health information. This information has been disclosed to you from records protected by [facility]. The law prohibits you from [...] contact the sender immediately.[facility] ([facility]) Encounter Details Date Type Department Care Team (Late st Contact Info) Description 2004 Historical Note [facility] [employer]le[employer] System Devyn Vásquez MD [address] [place] [address] [phone] Social History Tobacco Use Types Packs/Day Years [...] - [facility] [address] [facility] [address] [place] [phone] Brenda Clay MD [address] [facility] [address] [place] [address] 04/15/2026 10:00 AM EDT Office Visit LEATHA [facility] at [facility] + [facility] [address] [facility] [address] [place] [address] Sena Dominguez PA [address] [facility] [place] [address] documented as of this encounter Visit Diagnoses Not on filedocumented in this encounter Care Teams Beauty School Instructor Relationship Specialty Start Date End Date Meme Steel MD [address] [place] [address] 105 [place] [address] PCP - General Pediatrics 06/05/18 04/25/22 No Pcp, Pcp PCP - General 06/08/22 07/19/22 Guadalupe Mcbride MD PCP - General Family Medicine 07/20/22 11/01/23 Sena Dominguez PA [address] [place] [address] [place] [address] PCP - BRADY Physician Belt Sander Stone 11/02/23 Levy Barry MD [address] [place] [address] [place] [address] PCP - General Family Medicine 12/20/23 documented as of this encounter
--- OUTSIDE RECORDS SUMMARY | 2025-08-08 14:35 | XMS_ITS | Encounter Summary ---
Author Organization [facility] work ([facility]) Address [address] [place] [address] Care Team Providers Care Shoe Lining Fitter Name Role Phone Meme Steel MD Primary Care Provider [phone] Pcp, Pcp Primary Care Provider Unavailabl Guadalupe Bardales MD Primary Care Provider [phone] Sena Dominguez Unavailable [phone] Levy Barry MD Primary Care Provider Unavailab le Source Comments The information that you have received may contain highly confidential and/or federally protected health information. This information has been disclosed to you from records protected by [facility]. The law prohibits you [...] error, please contact the sender immediately.[facility] ([facility]) Encounter Details Date Type Department Care Team (Late st Contact Info) Description 03/11/2007 Historical Note [facility] [employer] System Devyn Vásquez MD [address] [place] [address] [phone] Social History Tobacco Use Types Packs/Day Years [...] LEATHA CARRILLO - [facility] at [facility] [address] [facility] [address] [place] [phone] Brenda Clay MD [address] [facility] [address] [place] [address] 04/15/2026 10:00 AM EDT Office Visit [facility] + [facility] [address] [place] [address] Sena Dominguez PA [address] [place] [address] documented as of this encounter Visit Diagnoses Not on filedocumented in this encounter Care Teams Shoe Lining Fitter Relationship Specialty Start Date End Date Meme Steel MD [address] [place] [address] [place] [address] PCP - General Pediatrics 06/05/18 04/25/22 No Pcp, Pcp PCP - General 06/08/22 07/19/22 Guadalupe Mcbride MD PCP - General Family Medicine 07/20/22 11/01/23 Sena Dominguez PA [address] [place] [address] [place] [address] PCP - BRADY Physician Motor Lodge Clerk 11/02/23 Levy Barry MD [address] [place] [address] [place] [address] PCP - General Family Medicine 12/20/23 documented as of this encounter
--- OUTSIDE RECORDS SUMMARY | 2025-08-08 14:35 | XMS_ITS | Encounter Summary ---
Author Organization [facility] work ([facility]) Address [address] [place] [address] Care Team Providers Care Therapeutic Radiologist Name Role Phone Meme Steel MD Primary Care Provider [phone] Pcp, Pcp Primary Care Provider Unavailabl Guadalupe Bardales MD Primary Care Provider [phone] Sena Dominguez Unavailable [phone] Levy Barry MD Primary Care Provider Unavailab le Source Comments The information that you have received may contain highly confidential and/or federally protected health information. This information has been disclosed to you from records protected by [facility]. The law prohibits you [...] please contact the sender immediately.[facility] ([facility]) Encounter Details Date Type Department Care Team (Late st Contact Info) Description 2004 Historical Note [facility] Aerovance System Devyn Vásquez MD [address] [place] [address] [phone] Social History Tobacco Use Types Packs/Day Years [...] LEATHA CARRILLO - [facility] at [facility] [address] [facility] [address] [place] [phone] Brenda Clay MD [address] [facility] [address] [place] [address] 04/15/2026 10:00 AM EDT Office Visit [facility]HA [facility] at [facility] + [facility] [address] [place] [address] Sena Dominguez PA [address] [facility] [place] [address] documented as of this encounter Visit Diagnoses Not on filedocumented in this encounter Care Teams Therapeutic Radiologist Relationship Specialty Start Date End Date Meme Steel MD [address] [place] [address] 105 [place] [address] PCP - General Pediatrics 06/05/18 04/25/22 No Pcp, Pcp PCP - General 06/08/22 07/19/22 Guadalupe Mcbride MD PCP - General Family Medicine 07/20/22 11/01/23 Sena Dominguez PA [address] [place] [address] [place] [address] PCP - BRADY Physician Streetcar Repairer 11/02/23 Levy Barry MD [address] [place] [address] [place] [address] PCP - General Family Medicine 12/20/23 documented as of this encounter
--- OUTSIDE RECORDS SUMMARY | 2025-08-08 14:35 | XMS_ITS | Encounter Summary ---
Author Organization [facility] work ([facility]) Address [address] [place] [address] Care Team Providers Care Telecom Specialist Name Role Phone Meme Steel MD Primary Care Provider [phone] Pcp, Pcp Primary Care Provider Unavailabl Guadalupe Bardales MD Primary Care Provider [phone] Sena Dominguez Unavailable [phone] Levy Barry MD Primary Care Provider Unavailab le Source Comments The information that you have received may contain highly confidential and/or federally protected health information. This information has been disclosed to you from records protected by [facility]. The law prohibits you from [...] contact the sender immediately.[facility] ([facility]) Encounter Details Date Type Department Care Team (Late st Contact Info) Description 2004 Historical Note [facility] [employer] [facility] Devyn Vásquez MD [address] [place] [address] [phone] Social History Tobacco Use Types Packs/Day Years [...] Visit LEATHA CARRILLO - [facility] [address] [facility] [address] [place] [phone] Brenda Clay MD [address] [facility] [address] [place] [address] 04/15/2026 10:00 AM EDT Office Visit [facility] + [facility] [address] [facility] [address] [place] [address] Sena Dominguez PA [address] [facility] [place] [address] documented as of this encounter Visit Diagnoses Not on filedocumented in this encounter Care Teams Telecom Specialist Relationship Specialty Start Date End Date Meme Steel MD [address] [place] [address] 105 [place] [address] PCP - General Pediatrics 06/05/18 04/25/22 No Pcp, Pcp PCP - General 06/08/22 07/19/22 Guadalupe Mcbride MD PCP - General Family Medicine 07/20/22 11/01/23 Sena Dominguez PA [address] [place] [address] [place] [address] PCP - BRADY Physician Nutrition Services Aide 11/02/23 Levy Barry MD [address] [place] [address] [place] [address] PCP - General Family Medicine 12/20/23 documented as of this encounter
--- OUTSIDE RECORDS SUMMARY | 2025-08-08 14:35 | XMS_ITS | Encounter Summary ---
Author Organization [facility] work ([facility]) Address [address] [place] [address] Care Team Providers Care Director Sanitation Bureau Name Role Phone Meme Steel MD Primary Care Provider [phone] Pcp, Pcp Primary Care Provider Unavailabl Guadalupe Bardales MD Primary Care Provider Sena Dominguez Unavailable Levy Barry MD Primary Care Provider Unavailab le Source Comments The information that you have received may contain highly confidential and/or federally protected health information. This information has been disclosed to you from records protected by [facility]. The law prohibits [...] please contact the sender immediately.[facility] ([facility]) Encounter Details Date Type Department Care Team (Late st Contact Info) Description 11/16/2006 Historical Note SVMG Samplesaint System Devyn Vásquez MD [address] [place] [address] [phone] Social History Tobacco Use Types Packs/Day Years [...] LEATHA CARRILLO - [facility] [address] [facility] [address] [place] [phone] Brenda Clay MD [address] [facility] [address] [place] [address] 04/15/2026 10:00 AM EDT Office Visit [facility]HA [facility] at [facility] [address] [facility] [address] [facility] [address] [place] [address] Sena Dominguez PA [address] [facility] [place] [address] documented as of this encounter Visit Diagnoses Not on filedocumented in this encounter Care Teams Director Sanitation Bureau Relationship Specialty Start Date End Date Meme Steel MD [address] [place] [address] 105 [place] [address] PCP - General Pediatrics 06/05/18 04/25/22 No Pcp, Pcp PCP - General 06/08/22 07/19/22 Guadalupe Mcbride MD PCP - General Family Medicine 07/20/22 11/01/23 Sena Dominguez PA [address] [place] [address] [place] [address] PCP - BRADY Physician Electric Motor Winders Assembler 11/02/23 Levy Barry MD [address] [place] [address] [place] [address] PCP - General Family Medicine 12/20/23 documented as of this encounter
--- OUTSIDE RECORDS SUMMARY | 2025-08-08 14:35 | XMS_ITS | Encounter Summary ---
Author Organization [facility] work ([facility]) Address [address] [place] [address] Care Team Providers Care Non Licensed Nuclear Equipment Operator Name Role Phone Meme Steel MD Primary Care Provider [phone] Pcp, Pcp Primary Care Provider Unavailabl Guadalupe Bardales MD Primary Care Provider [phone] Sena Dominguez Unavailable [phone] Levy Barry MD Primary Care Provider Unavailab le Source Comments The information that you have received may contain highly confidential and/or federally protected health information. This information has been disclosed to you from records protected by [facility]. The law prohibits you [...] please contact the sender immediately.[facility] ([facility]) Encounter Details Date Type Department Care Team (Late st Contact Info) Description 2004 Historical Note [facility]G L[employer] System Devyn Vásquez MD [address] [place] [address] [phone] Social History Tobacco Use Types Packs/Day Years [...] CARRILLO - [facility] at [facility] [address] [facility] [address] [place] [phone] Brenda Clay MD [address] [facility] [address] [place] [address] 04/15/2026 10:00 AM EDT Office Visit [facility]HA [facility] at [facility] [address] [facility] [address] [place] [address] Sena Dominguez PA [address] [facility] [place] [address] documented as of this encounter Visit Diagnoses Not on filedocumented in this encounter Care Teams Non Licensed Nuclear Equipment Operator Relationship Specialty Start Date End Date Meme Steel MD [address] [place] [address] 105 [place] [address] PCP - General Pediatrics 06/05/18 04/25/22 No Pcp, Pcp PCP - General 06/08/22 07/19/22 Guadalupe Mcbride MD PCP - General Family Medicine 07/20/22 11/01/23 Sena Dominguez PA [address] [place] [address] [place] [address] PCP - BRADY Physician Eeg Tech 11/02/23 Levy Barry MD [address] [place] [address] [place] [address] PCP - General Family Medicine 12/20/23 documented as of this encounter
--- OUTSIDE RECORDS SUMMARY | 2025-08-08 14:35 | XMS_ITS | Encounter Summary ---
Author Organization [facility] work ([facility] Address [address] [place] [address] Care Team Providers Care Real Estate Administrative Assistant Name Role Phone Meme Steel MD Primary Care Provider [phone] Pcp, Pcp Primary Care Provider Unavailabl Guadalupe Bardales MD Primary Care Provider [phone] Sena Dominguez Unavailable [phone] Levy Barry MD Primary Care Provider Unavailab le Source Comments The information that you have received may contain highly confidential and/or federally protected health information. This information has been disclosed to you from records protected by [facility]. The law prohibits you from [...] contact the sender immediately.[facility] ([facility] Encounter Details Date Type Department Care Team (Late st Contact Info) Description 2004 Historical Note SVMG [employer] System Devyn Vásquez MD [address] [place] [address] [phone] Social History Tobacco Use Types Packs/Day Years [...] - [facility] at [facility] [address] [facility] [address] [place] [phone] Brenda Clay MD [address] [facility] [address] [place] [address] 04/15/2026 10:00 AM EDT Office Visit LEATHA [facility] at [facility] + [facility] [address] [facility] [address] [place] [address] Sena Dominguez PA [address] [facility] [place] [address] documented as of this encounter Visit Diagnoses Not on filedocumented in this encounter Care Teams Real Estate Administrative Assistant Relationship Specialty Start Date End Date Meme Steel MD [address] [place] [address] 105 [place] [address] PCP - General Pediatrics 06/05/18 04/25/22 No Pcp, Pcp PCP - General 06/08/22 07/19/22 Guadalupe Mcbride MD PCP - General Family Medicine 07/20/22 11/01/23 Sena Dominguez PA [address] [place] [address] [place] [address] PCP - BRADY Physician Merchandise Support Associate 11/02/23 Levy Barry MD [address] [place] [address] [place] [address] PCP - General Family Medicine 12/20/23 documented as of this encounter
--- OUTSIDE RECORDS SUMMARY | 2025-08-08 14:35 | XMS_ITS | Encounter Summary ---
Author Organization [facility] work ([facility]) Address [address] [place] [address] Care Team Providers Care Ingredient Scaler Name Role Phone Meme Steel MD Primary Care Provider [phone] Pcp, Pcp Primary Care Provider Unavailabl Guadalupe Bardales MD Primary Care Provider [phone] Sean Dominguez Unavailable [phone] Levy Barry MD Primary Care Provider Unavailab le Source Comments The information that you have received may contain highly confidential and/or federally protected health information. This information has been disclosed to you from records protected by [facility] [facility]. The law prohibits you from [...] contact the sender immediately.[facility] ([facility]) Encounter Details Date Type Department Care Team (Late st Contact Info) Description 11/16/2006 Historical Note SVMG [employer] System Devyn Vásquez MD [address] [place] [address] [phone] Social History Tobacco Use Types Packs/Day Years [...] [facility] [address] [facility] [address] [place] [phone] Brenda Clay MD [address] [facility] [address] [place] [phone] 04/15/2026 10:00 AM EDT Office Visit LEATHA [facility] at [facility] + [facility] [address] [facility] [address] [place] [address] Sena Dominguez PA [address] [facility] [place] [address] documented as of this encounter Visit Diagnoses Not on filedocumented in this encounter Care Teams Ingredient Scaler Relationship Specialty Start Date End Date Meme Steel MD [address] [place] [address] 105 [place] [address] PCP - General Pediatrics 06/05/18 04/25/22 No Pcp, Pcp PCP - General 06/08/22 07/19/22 Guadalupe Mcbride MD PCP - General Family Medicine 07/20/22 11/01/23 Sena Dominguez PA [address] [place] [address] [place] [address] PCP - BRADY Physician Dietary Tech 11/02/23 Levy Barry MD [address] [place] [address] [place] [address] PCP - General Family Medicine 12/20/23 documented as of this encounter
--- OUTSIDE RECORDS SUMMARY | 2025-08-08 14:35 | XMS_ITS | Encounter Summary ---
Author Organization [facility] work ([facility]) Address [address] [place] [address] Care Team Providers Care Supply Tech Name Role Phone Meme Steel MD Primary Care Provider [phone] Pcp, Pcp Primary Care Provider Unavailabl Guadalupe Bardales MD Primary Care Provider [phone] Sena Dominguez Unavailable [phone] Levy Barry MD Primary Care Provider Unavailab le Source Comments The information that you have received may contain highly confidential and/or federally protected health information. This information has been disclosed to you from records protected by [facility]. The law prohibits you [...] sender immediately.[facility] ([facility]) Encounter Details Date Type Department Care Team (Late st Contact Info) Description 2004 Historical Note SVMG TalkApolis System Devyn Vásquez MD [address] [place] [address] [phone] Social History Tobacco Use Types Packs/Day Years [...] LEATHA CARRILLO - [facility] [address] [facility] [address] [place] [phone] Brenda Clay MD [address] [facility] [address] [place] [address] 04/15/2026 10:00 AM EDT Office Visit [facility]HA [facility] at [facility] [address] [facility] [address] [place] [address] Sena Dominguez PA [address] [facility] [place] [address] documented as of this encounter Visit Diagnoses Not on filedocumented in this encounter Care Teams Supply Tech Relationship Specialty Start Date End Date Meme Steel MD [address] [place] [address] 105 [place] [address] PCP - General Pediatrics 06/05/18 04/25/22 No Pcp, Pcp PCP - General 06/08/22 07/19/22 Guadalupe Mcbride MD PCP - General Family Medicine 07/20/22 11/01/23 Sena Dominguez PA [address] [place] [address] [place] [address] PCP - BRADY Physician Forensic Artist 11/02/23 Levy Barry MD [address] [place] [address] [place] [address] PCP - General Family Medicine 12/20/23 documented as of this encounter
--- OUTSIDE RECORDS SUMMARY | 2025-08-08 14:35 | XMS_ITS | Encounter Summary ---
Author Organization [facility] work ([facility]) Address [address] [place] [address] Care Team Providers Care Retail Associate Manager Bilingual Name Role Phone Meme Steel MD Primary Care Provider [phone] No Pcp, Pcp Primary Care Provider Unavailabl Guadalupe Bardales MD Primary Care Provider [phone] Sena Dominguez Unavailable [phone] Levy Barry MD Primary Care Provider Unavailab le Source Comments The information that you have received may contain highly confidential and/or federally protected health information. This information has been disclosed to you from records protected by [facility]. The law prohibits you [...] please contact the sender immediately.[facility] ([facility]) Encounter Details Date Type Department Care Team (Late st Contact Info) Description 05/29/2006 Historical Note [facility] [employer]s Deli System Devyn Vásquez MD [address] [place] [address] [phone] Social History Tobacco Use Types Packs/Day Years [...] [facility] [address] [facility] [address] [place] [phone] Brenda Clay MD [address] [facility] [address] [place] [phone] 04/15/2026 10:00 AM EDT Office Visit LEATHA [facility] at [facility] + [facility] [address] [facility] [address] [place] [address] Sena Dominguez PA [address] [facility] [place] [address] documented as of this encounter Visit Diagnoses Not on filedocumented in this encounter Care Teams Retail Associate Manager Bilingual Relationship Specialty Start Date End Date Meme Steel MD [address] [place] [address] 105 [place] [address] PCP - General Pediatrics 06/05/18 04/25/22 No Pcp, Pcp PCP - General 06/08/22 07/19/22 Guadalupe Mcbride MD PCP - General Family Medicine 07/20/22 11/01/23 Sena Dominguez PA [address] [place] [address] [place] [address] PCP - BRADY Physician Customs Director 11/02/23 Levy Barry MD [address] [place] [address] [place] [address] PCP - General Family Medicine 12/20/23 documented as of this encounter
--- OUTSIDE RECORDS SUMMARY | 2025-08-08 14:35 | XMS_ITS | Encounter Summary ---
Author Organization [facility] work ([facility]) Address [address] [place] [address] Care Team Providers Care Direct Sales Professional Name Role Phone Meme Steel MD Primary Care Provider [phone] Pcp, Pcp Primary Care Provider Unavailabl Guadalupe Bardales MD Primary Care Provider [phone] Sena Dominguez Unavailable [phone] Levy Barry MD Primary Care Provider Unavailab le Source Comments The information that you have received may contain highly confidential and/or federally protected health information. This information has been disclosed to you from records protected by [facility]. The law prohibits you from making [...] contact the sender immediately.[facility] ([facility]) Encounter Details Date Type Department Care Team (Late st Contact Info) Description 2004 Historical Note SVMG FilmLoop System Devyn Vásquez MD [address] [place] [address] [phone] Social History Tobacco Use Types Packs/Day Years [...] - [facility] [address] [facility] [address] [place] [phone] Brenda Clay MD [address] [facility] [address] [place] [address] 04/15/2026 10:00 AM EDT Office Visit [facility] [address] [facility] [address] [place] [address] Sena Dominguez PA [address] [facility] [place] [address] documented as of this encounter Visit Diagnoses Not on filedocumented in this encounter Care Teams Direct Sales Professional Relationship Specialty Start Date End Date Meme Steel MD [address] [place] [address] 105 [place] [address] PCP - General Pediatrics 06/05/18 04/25/22 No Pcp, Pcp PCP - General 06/08/22 07/19/22 Guadalupe Mcbride MD PCP - General Family Medicine 07/20/22 11/01/23 Sena Dominguez PA [address] [place] [address] [place] [address] PCP - BRADY Physician Feed Crusher 11/02/23 Levy Barry MD [address] [place] [address] [place] [address] PCP - General Family Medicine 12/20/23 documented as of this encounter
--- OUTSIDE RECORDS SUMMARY | 2025-08-08 14:35 | XMS_ITS | Encounter Summary ---
Author Organization [facility] work ([facility]) Address [address] [place] [address] Care Team Providers Care Crematorium Operator Name Role Phone Meme Steel MD Primary Care Provider [phone] Pcp, Pcp Primary Care Provider Unavailabl Guadalupe Bardales MD Primary Care Provider [phone] Sena Dominguez Unavailable [phone] Levy Barry MD Primary Care Provider Unavailab le Source Comments The information that you have received may contain highly confidential and/or federally protected health information. This information has been disclosed to you from records protected by [facility]. The law prohibits you from [...] the sender immediately.[facility] ([facility]) Encounter Details Date Type Department Care Team (Late st Contact Info) Description 2004 Historical Note [facility] Roombeats System Devyn Vásquez MD [address] [place] [address] [phone] Social History Tobacco Use Types Packs/Day Years [...] LEATHA CARRILLO - [facility] [address] [facility] [address] [place] [phone] Brenda Clay MD [address] [facility] [address] [place] [address] 04/15/2026 10:00 AM EDT Office Visit [facility]HA [facility] at [facility] + [facility] [address] [facility] [place] [address] Sena Dominguez PA [address] [facility] [place] [address] documented as of this encounter Visit Diagnoses Not on filedocumented in this encounter Care Teams Crematorium Operator Relationship Specialty Start Date End Date Meme Steel MD [address] [place] [address] [place] [address] PCP - General Pediatrics 06/05/18 04/25/22 No Pcp, Pcp PCP - General 06/08/22 07/19/22 Guadalupe Mcbride MD PCP - General Family Medicine 07/20/22 11/01/23 Sena Dominguez PA [address] [place] [address] [place] [address] PCP - BRADY Physician What Job Titles Mean 11/02/23 Levy Barry MD [address] [place] [address] [place] [address] PCP - General Family Medicine 12/20/23 documented as of this encounter
--- OUTSIDE RECORDS SUMMARY | 2025-08-08 14:35 | XMS_ITS | Encounter Summary ---
Author Organization [facility] work ([facility]) Address [address] [place] [address] Care Team Providers Care Supervisor Dental Laboratory Name Role Phone Meme Steel MD Primary Care Provider [phone] Pcp, Pcp Primary Care Provider Unavailabl Guadalupe Bardales MD Primary Care Provider [phone] Sena Dominguez Unavailable [phone] Levy Barry MD Primary Care Provider Unavailab le Source Comments The information that you have received may contain highly confidential and/or federally protected health information. This information has been disclosed to you from records protected by [facility]. The law prohibits you [...] error, please contact the sender immediately[facility] ([facility]) Encounter Details Date Type Department Care Team (Late st Contact Info) Description 11/09/2006 Historical Note [facility] Mountvacation System Devyn Vásquez MD [address] [place] [address] [phone] Social History Tobacco Use Types Packs/Day Years [...] Visit LEATHA CARRILLO - [facility] [address] [place] [phone] Brenda Clay MD [address] [facility] [address] [place] [address] 04/15/2026 10:00 AM EDT Office Visit [facility]HA [facility] [address] [facility] [address] [place] [address] Sena Dominguez PA [address] [facility] [place] [address] documented as of this encounter Visit Diagnoses Not on filedocumented in this encounter Care Teams Supervisor Dental Laboratory Relationship Specialty Start Date End Date Meme Steel MD [address] [place] [address] 105 [place] [address] PCP - General Pediatrics 06/05/18 04/25/22 No Pcp, Pcp PCP - General 06/08/22 07/19/22 Guadalupe Mcbride MD PCP - General Family Medicine 07/20/22 11/01/23 Sena Dominguez PA [address] [place] [address] [place] [address] PCP - BRADY Physician Primer Inserting Machine Operator 11/02/23 Levy Barry MD [address] [place] [address] [place] [address] PCP - General Family Medicine 12/20/23 documented as of this encounter
--- OUTSIDE RECORDS SUMMARY | 2025-08-08 14:35 | XMS_ITS | Encounter Summary ---
Author Organization [facility] work ([facility]) Address [address] [place] [address] Care Team Providers Care Area Sales Manager Name Role Phone Meme Steel MD Primary Care Provider [phone] Pcp, Pcp Primary Care Provider Unavailabl Guadalupe Bardales MD Primary Care Provider [phone] Sena Dominguez Unavailable [phone] Levy Barry MD Primary Care Provider Unavailab le Source Comments The information that you have received may contain highly confidential and/or federally protected health information. This information has been disclosed to you from records protected by [facility]. The law prohibits you from making [...] [facility] ([facility]) Encounter Details Date Type Department Care Team (Late st Contact Info) Description 2004 Historical Note [facility] Paktor System Devyn Vásquez MD [address] [place] [address] [phone] Social History Tobacco Use Types Packs/Day Years [...] [facility] [address] [facility] [address] [place] [phone] Brenda Clay MD [address] [facility] [address] [place] [address] 04/15/2026 10:00 AM EDT Office Visit LE[facility]HA [facility] + [facility] [address] [facility] [address] [place] [address] Sena Dominguez PA [address] [facility] [place] [address] documented as of this encounter Visit Diagnoses Not on filedocumented in this encounter Care Teams Area Sales Manager Relationship Specialty Start Date End Date Meme Steel MD [address] [place] [address] 105 [place] [address] PCP - General Pediatrics 06/05/18 04/25/22 No Pcp, Pcp PCP - General 06/08/22 07/19/22 Guadalupe Mcbride MD PCP - General Family Medicine 07/20/22 11/01/23 Sena Dominguez PA [address] [place] [address] [place] [address] PCP - BRADY Physician Manager Embalmer Funeral Director 11/02/23 Levy Barry MD [address] [place] [address] [place] [address] PCP - General Family Medicine 12/20/23 documented as of this encounter
--- OUTSIDE RECORDS SUMMARY | 2025-08-08 14:35 | XMS_ITS | Encounter Summary ---
Author Organization [facility] work ([facility]) Address [address] [place] [address] Care Team Providers Care Continuing Education Director Name Role Phone Meme Steel MD Primary Care Provider [phone] Pcp, Pcp Primary Care Provider Unavailabl Guadalupe Bardales MD Primary Care Provider [phone] Sena Dominguez Unavailable [phone] Levy Barry MD Primary Care Provider Unavailab le Source Comments The information that you have received may contain highly confidential and/or federally protected health information. This information has been disclosed to you from records protected by [facility]. The law prohibits [...] contact the sender immediately.[facility] ([facility]) Encounter Details Date Type Department Care Team (Late st Contact Info) Description 2004 Historical Note [facility] [employer] System Devyn Vásquez MD [address] [place] [address] [phone] Social History Tobacco Use Types Packs/Day Years [...] LEATHA CARRILLO - [facility] [address] [facility] [address] [place] [phone] Brenda Clay MD [address] [facility] [address] [place] [address] 04/15/2026 10:00 AM EDT Office Visit LEATHA [facility] at [facility] + [facility] [address] [facility] [address] [place] [address] Sena Dominguez PA [address] [facility] [place] [address] documented as of this encounter Visit Diagnoses Not on filedocumented in this encounter Care Teams Continuing Education Director Relationship Specialty Start Date End Date Meme Steel MD [address] [place] [address] 105 [place] [address] PCP - General Pediatrics 06/05/18 04/25/22 No Pcp, Pcp PCP - General 06/08/22 07/19/22 Guadalupe Mcbride MD PCP - General Family Medicine 07/20/22 11/01/23 Sena Dominguez PA [address] [place] [address] [place] [address] PCP - BRADY Physician Medical Apparatus Model Maker 11/02/23 Levy Barry MD [address] [place] [address] [place] [address] PCP - General Family Medicine 12/20/23 documented as of this encounter
--- OUTSIDE RECORDS SUMMARY | 2025-08-08 14:35 | XMS_ITS | Encounter Summary ---
Author Organization [facility] work ([facility]) Address [address] [place] [address] Care Team Providers Care Veterinary Technology Instructor Name Role Phone Meme Steel MD Primary Care Provider [phone] Pcp, Pcp Primary Care Provider Unavailabl Guadalupe Bardales MD Primary Care Provider [phone] Sena Dominguez Unavailable [phone] Levy Barry MD Primary Care Provider Unavailab le Source Comments The information that you have received may contain highly confidential and/or federally protected health information. This information has been disclosed to you from records protected by [facility]. The law prohibits you from [...] contact the sender immediately.[facility] ([facility]) Encounter Details Date Type Department Care Team (Late st Contact Info) Description 2004 Historical Note [facility] SwipeStation System Devyn Vásquez MD [address] [place] [address] [phone] Social History Tobacco Use Types Packs/Day Years [...] LEATHA CARRILLO - [facility] [address] [facility] [address] [place] [phone] Brenda Clay MD [address] [facility] [address] [place] [address] 04/15/2026 10:00 AM EDT Office Visit LEATHA Primary [facility] at [facility] + [facility] [address] [place] [address] Sena Dominguez PA [address] [facility] [place] [address] documented as of this encounter Visit Diagnoses Not on filedocumented in this encounter Care Teams Veterinary Technology Instructor Relationship Specialty Start Date End Date Meme Steel MD [address] [place] [address] 105 [place] [address] PCP - General Pediatrics 06/05/18 04/25/22 No Pcp, Pcp PCP - General 06/08/22 07/19/22 Guadalupe Mcbride MD PCP - General Family Medicine 07/20/22 11/01/23 Sena Dominguez PA [address] [place] [address] [place] [address] PCP - BRADY Physician Actuarial Mathematician 11/02/23 Levy Barry MD [address] [place] [address] [place] [address] PCP - General Family Medicine 12/20/23 documented as of this encounter
--- OUTSIDE RECORDS SUMMARY | 2025-08-08 14:35 | XMS_ITS | Encounter Summary ---
Author Organization [facility] work ([facility] Address [address] [place] [address] Care Team Providers Care Fabrication Specialist Name Role Phone Meme Steel MD Primary Care Provider [phone] No Pcp, Pcp Primary Care Provider Unavailabl Guadalupe Bardales MD Primary Care Provider [phone] Sena Dominguez Unavailable Levy Barry MD Primary Care Provider Unavailab le Source Comments The information that you have received may contain highly confidential and/or federally protected health information. This information has been disclosed to you from records protected by [facility]. The law prohibits you from [...] please contact the sender immediately.[facility] ([facility] Encounter Details Date Type Department Care Team (Late st Contact Info) Description 06/01/2006 Historical Note [facility] Khush System Devyn Vásquez MD [address] [place] [id number] Social History Tobacco Use Types Packs/Day Years [...] CARRILLO - [facility] [address] [facility] [address] [place] [phone] Brenda Clay MD [address] [facility] [address] [place] [address] 04/15/2026 10:00 AM EDT Office Visit LEATHA Primary [facility] at [facility] + [facility] [address] [facility] [address] [place] [address] Sena Dominguez PA [address] [facility] [place] [address] documented as of this encounter Visit Diagnoses Not on filedocumented in this encounter Care Teams Fabrication Specialist Relationship Specialty Start Date End Date Meme Steel MD [address] [place] [address] 105 [place] [address] PCP - General Pediatrics 06/05/18 04/25/22 No Pcp, Pcp PCP - General 06/08/22 07/19/22 Guadalupe Mcbride MD PCP - General Family Medicine 07/20/22 11/01/23 Sena Dominguez PA [address] [place] [address] [place] [address] PCP - BRADY Physician Artificial Breeding Ranch Supervisor 11/02/23 Levy Barry MD [address] [place] [address] [place] [address] PCP - General Family Medicine 12/20/23 documented as of this encounter
--- OUTSIDE RECORDS SUMMARY | 2025-08-08 14:35 | XMS_ITS | Encounter Summary ---
Author Organization [facility] work ([facility]) Address [address] [place] [address] Care Team Providers Care Plant Wire Chief Name Role Phone Meme Steel MD Primary Care Provider [phone] Pcp, Pcp Primary Care Provider Unavailabl Guadalupe Bardales MD Primary Care Provider [phone] Sena Dominguez Unavailable [phone] Levy Barry MD Primary Care Provider Unavailab le Source Comments The information that you have received may contain highly confidential and/or federally protected health information. This information has been disclosed to you from records protected by [facility]. The law prohibits you [...] please contact the sender immediately.[facility] ([facility]) Encounter Details Date Type Department Care Team (Late st Contact Info) Description 2004 Historical Note [facility] Branch System Devyn Vásquez MD [address] [place] [address] [phone] Social History Tobacco Use Types Packs/Day Years [...] CARRILLO - [facility] [address] [facility] [address] [place] [phone] Brenda Clay MD [address] [facility] [address] [place] [address] 04/15/2026 10:00 AM EDT Office Visit [facility]HA [facility] + [facility] [address] [facility] [address] [place] [address] Sena Dominguez PA [address] [facility] [place] [address] documented as of this encounter Visit Diagnoses Not on filedocumented in this encounter Care Teams Plant Wire Chief Relationship Specialty Start Date End Date Meme Steel MD [address] [place] [address] 105 [place] [address] PCP - General Pediatrics 06/05/18 04/25/22 No Pcp, Pcp PCP - General 06/08/22 07/19/22 Guadalupe Mcbride MD PCP - General Family Medicine 07/20/22 11/01/23 Sena Dominguez PA [address] [place] [address] [place] [address] PCP - BRADY Physician Assistant To The President 11/02/23 Levy Barry MD [address] [place] [address] [place] [address] PCP - General Family Medicine 12/20/23 documented as of this encounter
--- OUTSIDE RECORDS SUMMARY | 2025-08-08 14:35 | XMS_ITS | Encounter Summary ---
Author Organization [facility] work ([facility]) Address [address] [place] [address] Care Team Providers Care Blood Splatter Analyst Name Role Phone Meme Steel MD Primary Care Provider [phone] Pcp, Pcp Primary Care Provider Unavailabl Guadalupe Bardales MD Primary Care Provider [phone] Sena Dominguez Unavailable [phone] Levy Barry MD Primary Care Provider Unavailab le Source Comments The information that you have received may contain highly confidential and/or federally protected health information. This information has been disclosed to you from records protected by [email or web address]. The law prohibits [...] error, please contact the sender immediately.[facility] ([facility]) Encounter Details Date Type Department Care Team (Late st Contact Info) Description 2004 Historical Note [facility] Ovalis System Devyn Vásquez MD [address] [place] [address] [phone] Social History Tobacco Use Types Packs/Day Years [...] LEATHA CARRILLO - [facility] [address] [facility] [address] [place] [phone] Brenda Clay MD [address] [facility] [address] [place] [address] 04/15/2026 10:00 AM EDT Office Visit LEATHA [facility] + [facility] [address] [facility] [address] [place] [address] Sena oDminguez PA [address] [facility] [place] [address] documented as of this encounter Visit Diagnoses Not on filedocumented in this encounter Care Teams Blood Splatter Analyst Relationship Specialty Start Date End Date Meme Steel MD [address] [place] [address] 105 [place] [address] PCP - General Pediatrics 06/05/18 04/25/22 No Pcp, Pcp PCP - General 06/08/22 07/19/22 Guadalupe Mcbride MD PCP - General Family Medicine 07/20/22 11/01/23 Sena Dominguez PA [address] [place] [address] [place] [address] PCP - BRADY Physician General Cleaner 11/02/23 Levy Barry MD [address] [place] [address] [place] [address] PCP - General Family Medicine 12/20/23 documented as of this encounter
--- OUTSIDE RECORDS SUMMARY | 2025-08-08 14:35 | XMS_ITS | Encounter Summary ---
Author Organization [facility] work ([facility]) Address [address] [place] [address] Care Team Providers Care Drying Machine Operator Name Role Phone Meme Steel MD Primary Care Provider [phone] Pcp, Pcp Primary Care Provider Unavailabl Guadalupe Bardales MD Primary Care Provider [phone] Sena Dominguez Unavailable [phone] Levy Barry MD Primary Care Provider Unavailab le Source Comments The information that you have received may contain highly confidential and/or federally protected health information. This information has been disclosed to you from records protected by [facility]. The law prohibits you from [...] please contact the sender immediately.[facility] ([facility]) Encounter Details Date Type Department Care Team (Late st Contact Info) Description 2004 Historical Note [facility] VaxCare System Devyn Vásquez MD [address] [place] [address] [phone] Social History Tobacco Use Types Packs/Day Years [...] CARRILLO - [facility] [address] [facility] [address] [place] [phone] Brenda Clay MD [address] [facility] [address] [place] [address] 04/15/2026 10:00 AM EDT Office Visit LEATHA [facility] at [facility] + [facility] [address] [facility] [address] [place] [address] Sena Dominguez PA [address] [facility] [place] [address] documented as of this encounter Visit Diagnoses Not on filedocumented in this encounter Care Teams Drying Machine Operator Relationship Specialty Start Date End Date Meme Steel MD [address] [place] [address] 105 [place] [address] PCP - General Pediatrics 06/05/18 04/25/22 No Pcp, Pcp PCP - General 06/08/22 07/19/22 Guadalupe Mcbride MD PCP - General Family Medicine 07/20/22 11/01/23 Sena Dominguez PA [address] [place] [address] [place] [address] PCP - BRADY Physician Freight Shipping Agent 11/02/23 Levy Barry MD [address] [place] [address] [place] [address] PCP - General Family Medicine 12/20/23 documented as of this encounter
--- OUTSIDE RECORDS SUMMARY | 2025-08-08 14:35 | XMS_ITS | Encounter Summary ---
Author Organization [facility] work ([facility]) Address [address] [place] [address] Care Team Providers Care Smt Technician Name Role Phone Meme Steel MD Primary Care Provider [phone] Pcp, Pcp Primary Care Provider Unavailabl Guadalupe Bardales MD Primary Care Provider [phone] Sena Dominguez Unavailable [phone] Levy Barry MD Primary Care Provider Unavailab le Source Comments The information that you have received may contain highly confidential and/or federally protected health information. This information has been disclosed to you from records protected by [facility]. The law prohibits you from [...] please contact the sender immediately.[facility] ([facility]) Encounter Details Date Type Department Care Team (Late st Contact Info) Description 03/11/2007 Historical Note [facility] [employer] Buildings System Devyn Vásquez MD [address] [place] [address] [phone] Social History Tobacco Use Types Packs/Day Years [...] - [facility] at [facility] [address] [facility] [address] [place] [phone] Brenda Clay MD [address] [facility] [address] [place] [address] 04/15/2026 10:00 AM EDT Office Visit LEATHA [facility] at [facility] + [facility] [address] [facility] [address] [place] [address] Sena Dominguez PA [address] [facility] [place] [address] documented as of this encounter Visit Diagnoses Not on filedocumented in this encounter Care Teams Smt Technician Relationship Specialty Start Date End Date Meme Steel MD [address] [place] [address] 105 [place] [address] PCP - General Pediatrics 06/05/18 04/25/22 No Pcp, Pcp PCP - General 06/08/22 07/19/22 Guadalupe Mcbride MD PCP - General Family Medicine 07/20/22 11/01/23 Sena Dominguez PA [address] [place] [address] [place] [address] PCP - BRADY Physician Rn Clinical Documentation 11/02/23 Levy Barry MD [address] [place] [address] [place] [address] PCP - General Family Medicine 12/20/23 documented as of this encounter
--- OUTSIDE RECORDS SUMMARY | 2025-08-08 14:35 | XMS_ITS | Encounter Summary ---
Author Organization [facility] work ([facility]) Address [address] [place] [address] Care Team Providers Care Cosmetology Teacher Name Role Phone Meme Steel MD Primary Care Provider [phone] Pcp, Pcp Primary Care Provider Unavailabl Guadalupe Bardales MD Primary Care Provider [phone] Sena Dominguez Unavailable [phone] Levy Barry MD Primary Care Provider Unavailab le Source Comments The information that you have received may contain highly confidential and/or federally protected health information. This information has been disclosed to you from records protected by [facility]. The law prohibits you [...] please contact the sender immediately.[facility] ([facility]) Encounter Details Date Type Department Care Team (Late st Contact Info) Description 05/29/2006 Historical Note [facility] Liquid X System Devyn Vásquez MD [address] [place] [address] [phone] Social History Tobacco Use Types Packs/Day Years [...] Visit LEATHA CARRILLO - [facility] [address] [facility] [address] [place] [phone] Brenda Clay MD [address] [facility] [address] [place] [address] 04/15/2026 10:00 AM EDT Office Visit [facility] [address] [facility] [address] [place] [address] Sena Dominguez PA [address] [facility] [place] [address] documented as of this encounter Visit Diagnoses Not on filedocumented in this encounter Care Teams Cosmetology Teacher Relationship Specialty Start Date End Date Meme Steel MD [address] [place] [address] [place] [address] PCP - General Pediatrics 06/05/18 04/25/22 No Pcp, Pcp PCP - General 06/08/22 07/19/22 Guadalupe Mcbride MD PCP - General Family Medicine 07/20/22 11/01/23 Sena Dominguez PA [address] [place] [address] [place] [address] PCP - BRADY Physician Auxiliary Equipment Tender 11/02/23 Levy Barry MD [address] [place] [address] [place] [address] PCP - General Family Medicine 12/20/23 documented as of this encounter
--- OUTSIDE RECORDS SUMMARY | 2025-08-08 14:35 | XMS_ITS | Encounter Summary ---
Author Organization [facility] work ([facility]) Address [address] [place] [address] Care Team Providers Care Regional Forester Name Role Phone Meme Steel MD Primary Care Provider [phone] No Pcp, Pcp Primary Care Provider Unavailabl Guadalupe Bardales MD Primary Care Provider [phone] Sena Dominguez Unavailable [phone] Levy Barry MD Primary Care Provider Unavailab le Source Comments The information that you have received may contain highly confidential and/or federally protected health information. This information has been disclosed to you from records protected by [email or web address]. The law prohibits you from making [...] please contact the sender immediately.[facility] ([facility]) Encounter Details Date Type Department Care Team (Late st Contact Info) Description 2004 Historical Note [facility] Buysight System Devyn Vásquez MD [address] [place] [address] [phone] Social History Tobacco Use Types Packs/Day Years [...] - [facility] [address] [facility] [address] [place] [phone] Brenda Clay MD [address] [facility] [address] [place] [address] 04/15/2026 10:00 AM EDT Office Visit [facility]HA [facility] at [facility] + [facility] [address] [facility] [address] [place] [address] Sena Dominguez PA [address] [facility] [place] [address] documented as of this encounter Visit Diagnoses Not on filedocumented in this encounter Care Teams Regional Forester Relationship Specialty Start Date End Date Meme Steel MD [address] [place] [address] 105 [place] [address] PCP - General Pediatrics 06/05/18 04/25/22 No Pcp, Pcp PCP - General 06/08/22 07/19/22 Guadalupe Mcbride MD PCP - General Family Medicine 07/20/22 11/01/23 Sena Dominguez PA [address] [place] [address] [place] [address] PCP - BRADY Physician Admitting Manager 11/02/23 Levy Barry MD [address] [place] [address] [place] [address] PCP - General Family Medicine 12/20/23 documented as of this encounter
--- OUTSIDE RECORDS SUMMARY | 2025-08-08 14:35 | XMS_ITS | Encounter Summary ---
Author Organization [facility] work ([facility]) Address [address] [place] [address] Care Team Providers Care Councilor Name Role Phone Meme Steel MD Primary Care Provider [phone] No Pcp, Pcp Primary Care Provider Unavailabl Guadalupe Bardales MD Primary Care Provider [phone] Sena Dominguez Unavailable [phone] Levy Barry MD Primary Care Provider Unavailab le Source Comments The information that you have received may contain highly confidential and/or federally protected health information. This information has been disclosed to you from records protected by [facility]. The law prohibits you from making [...] contact the sender immediately.[facility] ([facility]) Encounter Details Date Type Department Care Team (Late st Contact Info) Description 2004 Historical Note [facility] [employer] System Devyn Vásquez MD [address] [place] [address] [phone] Social History Tobacco Use Types Packs/Day Years [...] Visit LEATHA CARRILLO - [facility] [address] [facility] [address] [place] [phone] Brenda Clay MD [address] [facility] [address] [place] [address] 04/15/2026 10:00 AM EDT Office Visit LE[facility]HA [facility] at [facility] + [facility] [address] [facility] [address] [place] [address] Sena Dominguez PA [address] [facility] [place] [address] documented as of this encounter Visit Diagnoses Not on filedocumented in this encounter Care Teams Councilor Relationship Specialty Start Date End Date Meme Steel MD [address] [place] [address] 105 [place] [address] PCP - General Pediatrics 06/05/18 04/25/22 No Pcp, Pcp PCP - General 06/08/22 07/19/22 Guadalupe Mcbride MD PCP - General Family Medicine 07/20/22 11/01/23 Sena Dominguez PA [address] [place] [address] [place] [address] PCP - BRADY Physician Producer Assistant 11/02/23 Levy Barry MD [address] [place] [address] [place] [address] PCP - General Family Medicine 12/20/23 documented as of this encounter
--- OUTSIDE RECORDS SUMMARY | 2025-08-08 14:35 | XMS_ITS | Encounter Summary ---
Author Organization [facility] work ([facility]) Address [address] [place] [address] Care Team Providers Care Fire Protection Designer Name Role Phone Meme Steel MD Primary Care Provider [phone] Pcp, Pcp Primary Care Provider Unavailabl Guadalupe Bardales MD Primary Care Provider [phone] Sena Dominguez Unavailable [phone] Levy Barry MD Primary Care Provider Unavailab le Source Comments The information that you have received may contain highly confidential and/or federally protected health information. This information has been disclosed to you from records protected by [facility]. The law prohibits you [...] error, please contact the sender immediately.[facility] ([facility]) Encounter Details Date Type Department Care Team (Late st Contact Info) Description 11/09/2006 Historical Note [facility] Oxtex System Devyn Vásquez MD [address] [place] [address] [phone] Social History Tobacco Use Types Packs/Day Years [...] CARRILLO - [facility] [address] [facility] [address] [place] [phone] Brenda Clay MD [address] [facility] [address] [place] [address] 04/15/2026 10:00 AM EDT Office Visit [facility]HA [facility] at [facility] [address] [facility] [address] [place] [address] Sena Dominguez PA [address] [facility] [place] [address] documented as of this encounter Visit Diagnoses Not on filedocumented in this encounter Care Teams Fire Protection Designer Relationship Specialty Start Date End Date Meme Steel MD [address] [place] [address] 105 [place] [address] PCP - General Pediatrics 06/05/18 04/25/22 No Pcp, Pcp PCP - General 06/08/22 07/19/22 Guadalupe Mcbride MD PCP - General Family Medicine 07/20/22 11/01/23 Sena Dominguez PA [address] [place] [address] [place] [address] PCP - BRADY Physician Screen Making Technician 11/02/23 Levy Barry MD [address] [place] [address] [place] [address] PCP - General Family Medicine 12/20/23 documented as of this encounter
--- OUTSIDE RECORDS SUMMARY | 2025-08-08 14:35 | XMS_ITS | Encounter Summary ---
Author Organization [facility] work ([facility]) Address [address] [place] [address] Care Team Providers Care Loadmaster Name Role Phone Meme Steel MD Primary Care Provider [phone] Pcp, Pcp Primary Care Provider Unavailabl Guadalupe Bardales MD Primary Care Provider [phone] Sena Dominguez Unavailable [phone] Levy Barry MD Primary Care Provider Unavailab le Source Comments The information that you have received may contain highly confidential and/or federally protected health information. This information has been disclosed to you from records protected by [facility]. The law prohibits you from making [...] contact the sender immediately.[facility] ([facility]) Encounter Details Date Type Department Care Team (Late st Contact Info) Description 2004 Historical Note [facility] Shopatron System Devyn Vásquez MD [address] [place] [address] [phone] Social History Tobacco Use Types Packs/Day Years [...] LEATHA CARRILLO - [facility] [address] [facility] [address] [place] [phone] Brenda Clay MD [address] [facility] [address] [place] [address] 04/15/2026 10:00 AM EDT Office Visit [facility]HA [facility] at [facility] + [facility] [address] [facility] [address] [place] [address] Sena Dominguez PA [address] [facility] [place] [address] documented as of this encounter Visit Diagnoses Not on filedocumented in this encounter Care Teams Loadmaster Relationship Specialty Start Date End Date Meme Steel MD [address] [place] [address] 105 [place] [address] PCP - General Pediatrics 06/05/18 04/25/22 No Pcp, Pcp PCP - General 06/08/22 07/19/22 Guadalupe Mcbride MD PCP - General Family Medicine 07/20/22 11/01/23 Sena Dominguez PA [address] [place] [address] [place] [address] PCP - BRADY Physician Profile Mill Operator Tape Control 11/02/23 Levy Barry MD [address] [place] [address] [place] [address] PCP - General Family Medicine 12/20/23 documented as of this encounter
--- OUTSIDE RECORDS SUMMARY | 2025-08-08 14:35 | XMS_ITS | Encounter Summary ---
Author Organization [facility] work ([facility] Address [address] [place] [address] Care Team Providers Care Brake Tester Name Role Phone Meme Steel MD Primary Care Provider [phone] Pcp, Pcp Primary Care Provider Unavailabl Guadalupe Bardales MD Primary Care Provider [phone] Sena Dominguez Unavailable [phone] Levy Barry MD Primary Care Provider Unavailab le Source Comments The information that you have received may contain highly confidential and/or federally protected health information. This information has been disclosed to you from records protected by [facility]. The law prohibits you from [...] please contact the sender immediately.[facility] ([facility] Encounter Details Date Type Department Care Team (Late st Contact Info) Description 2004 Historical Note [facility]G RealDirect System Devyn Vásquez MD [address] [place] [address] [phone] Social History Tobacco Use Types Packs/Day Years [...] - [facility] [address] [facility] [address] [place] [phone] Brenda Clay MD [address] [facility] [address] [place] [address] 04/15/2026 10:00 AM EDT Office Visit LEATHA [facility] at [facility] [address] [facility] [address] [place] [address] Sena Dominguez PA [address] [facility] [place] [address] documented as of this encounter Visit Diagnoses Not on filedocumented in this encounter Care Teams Brake Tester Relationship Specialty Start Date End Date Meme Steel MD [address] [place] [address] 105 [place] [address] PCP - General Pediatrics 06/05/18 04/25/22 No Pcp, Pcp PCP - General 06/08/22 07/19/22 Guadalupe Mcbride MD PCP - General Family Medicine 07/20/22 11/01/23 Sena Dominguez PA [address] [place] [address] [place] [address] PCP - BRADY Physician Preventive Medicine Officer 11/02/23 Levy Barry MD [address] [place] [address] [place] [address] PCP - General Family Medicine 12/20/23 documented as of this encounter
--- OUTSIDE RECORDS SUMMARY | 2025-08-08 14:35 | XMS_ITS | Encounter Summary ---
Author Organization [facility] work ([facility]) Address [address] [place] [address] Care Team Providers Care Yard Hand Name Role Phone Meme Steel MD Primary Care Provider [phone] Pcp, Pcp Primary Care Provider Unavailabl Guadalupe Bardales MD Primary Care Provider [phone] Sena Dominguez Unavailable [phone] Levy Barry MD Primary Care Provider Unavailab le Source Comments The information that you have received may contain highly confidential and/or federally protected health information. This information has been disclosed to you from records protected by [facility]. The law prohibits you [...] immediately.[facility] ([facility]) Encounter Details Date Type Department Care Team (Late st Contact Info) Description 2004 Historical Note SVMG iodine System Devyn Vásquez MD [address] [place] [address] [phone] Social History Tobacco Use Types Packs/Day Years [...] LEATHA CARRILLO - [facility] [address] [facility] [address] [place] [phone] Brenda Clay MD [address] [facility] [address] [place] [address] 04/15/2026 10:00 AM EDT Office Visit LEATHA [facility] at [facility] + [facility] [address] [facility] [address] [place] [address] Sena Dominguez PA [address] [facility] [place] [address] documented as of this encounter Visit Diagnoses Not on filedocumented in this encounter Care Teams Yard Hand Relationship Specialty Start Date End Date Meme Steel MD [address] [place] [address] 105 [place] [address] PCP - General Pediatrics 06/05/18 04/25/22 No Pcp, Pcp PCP - General 06/08/22 07/19/22 Guadalupe Mcbride MD PCP - General Family Medicine 07/20/22 11/01/23 Sena Dominguez PA [address] [place] [address] [place] [address] PCP - BRADY Physician Furniture Crater 11/02/23 Levy Barry MD [address] [place] [address] [place] [address] PCP - General Family Medicine 12/20/23 documented as of this encounter
--- OUTSIDE RECORDS SUMMARY | 2025-08-08 14:35 | XMS_ITS | Encounter Summary ---
Author Organization [facility] work ([facility]) Address [address] [place] [address] Care Team Providers Care Talk Show Host Name Role Phone Meme Steel MD Primary Care Provider [phone] No Pcp, Pcp Primary Care Provider Unavailabl Guadalupe Bardales MD Primary Care Provider Sena Dominguez Unavailable [phone] Levy Barry MD Primary Care Provider Unavailab le Source Comments The information that you have received may contain highly confidential and/or federally protected health information. This information has been disclosed to you from records protected by [facility]. The law prohibits you [...] please contact the sender immediately.[facility] ([facility]) Encounter Details Date Type Department Care Team (Late st Contact Info) Description 06/26/2007 Historical Note [facility]G One Public System Devyn Vásquez MD [address] [place] [address] [phone] Social History Tobacco Use Types Packs/Day Years [...] CARRILLO - [facility] [address] [facility] [address] [place] [phone] Brenda Clay MD [address] [facility] [address] [place] [phone] 04/15/2026 10:00 AM EDT Office Visit LEATHA [facility] at [facility] + [facility] [address] [facility] [address] [place] [address] Sena Dominguez PA [address] [facility] [place] [address] documented as of this encounter Visit Diagnoses Not on filedocumented in this encounter Care Teams Talk Show Host Relationship Specialty Start Date End Date Meme Steel MD [address] [place] [address] 105 [place] [address] PCP - General Pediatrics 06/05/18 04/25/22 No Pcp, Pcp PCP - General 06/08/22 07/19/22 Guadalupe Mcbride MD PCP - General Family Medicine 07/20/22 11/01/23 Sena Dominguez PA [address] [place] [address] [place] [address] PCP - BRADY Physician Solar Electric Installer 11/02/23 Levy Barry MD [address] [place] [address] [place] [address] PCP - General Family Medicine 12/20/23 documented as of this encounter
--- OUTSIDE RECORDS SUMMARY | 2025-08-08 14:35 | XMS_ITS | Encounter Summary ---
Author Organization [facility] work ([facility]) Address [address] [place] [address] Care Team Providers Care Clinical Molecular Geneticist Name Role Phone Meme Steel MD Primary Care Provider [phone] No Pcp, Pcp Primary Care Provider Unavailabl Guadalupe Bardales MD Primary Care Provider [phone] Sena Dominguez Unavailable Levy Barry MD Primary Care Provider Unavailab le Source Comments The information that you have received may contain highly confidential and/or federally protected health information. This information has been disclosed to you from records protected by [facility]. The law prohibits you [...] error, please contact the sender immediately.[facility] ([facility]) Encounter Details Date Type Department Care Team (Late st Contact Info) Description 2004 Historical Note [facility] [employer] System Devyn Vásquez MD [address] [place] [address] [phone] Social History Tobacco Use Types Packs/Day Years [...] CARRILLO - [facility] [address] [facility] [address] [place] [phone] Brenda Clay MD [address] [facility] [address] [place] [phone] 04/15/2026 10:00 AM EDT Office Visit LEATHA Primary [facility] at [facility] + [facility] [address] [facility] [address] [place] [address] Sena Dominguez PA [address] [facility] [place] [address] documented as of this encounter Visit Diagnoses Not on filedocumented in this encounter Care Teams Clinical Molecular Geneticist Relationship Specialty Start Date End Date Meme Steel MD [address] [place] [address] 105 [place] [address] PCP - General Pediatrics 06/05/18 04/25/22 No Pcp, Pcp PCP - General 06/08/22 07/19/22 Guadalupe Mcbride MD PCP - General Family Medicine 07/20/22 11/01/23 Sena Dominguez PA [address] [place] [address] [place] [address] PCP - BRADY Physician Obgyn Specialist 11/02/23 Levy Barry MD [address] [place] [address] [place] [address] PCP - General Family Medicine 12/20/23 documented as of this encounter
--- OUTSIDE RECORDS SUMMARY | 2025-08-08 14:35 | XMS_ITS | Encounter Summary ---
Author Organization [facility] work ([facility]) Address [address] [facility] [address] [address] [place] [address] Care Team Providers Care Research Quality Assurance Specialist Name Role Phone Meme Steel MD Primary Care Provider No Pcp, Pcp Primary Care Provider Unavailabl Guadalupe Bardales MD Primary Care Provider [phone] Sena Dominguez Unavailable Levy Barry MD Primary Care Provider Unavailab le Source Comments The information that you have received may contain highly confidential and/or federally protected health information. This information has been disclosed to you from records protected by [facility]. The law prohibits you from [...] immediately.[facility] ([facility]) Encounter Details Date Type Department Care Team (Late st Contact Info) Description 05/29/2006 Historical Note [facility] Cuur[employer] System Devyn Vásquez MD [address] [place] [address] [phone] Social History Tobacco Use Types Packs/Day Years [...] CARRILLO - [facility] [address] [facility] [address] [place] [phone] Brenda Clay MD [address] [facility] [address] [place] [address] 04/15/2026 10:00 AM EDT Office Visit LEATHA Primary [facility] at [facility] [place] + [facility] [address] [facility] [address] [place] [address] Sena Dominguez PA [address] [facility] [place] [address] documented as of this encounter Visit Diagnoses Not on filedocumented in this encounter Care Teams Research Quality Assurance Specialist Relationship Specialty Start Date End Date Meme Steel MD [address] [place] [address] 105 [place] [address] PCP - General Pediatrics 06/05/18 04/25/22 No Pcp, Pcp PCP - General 06/08/22 07/19/22 Guadalupe Mcbride MD PCP - General Family Medicine 07/20/22 11/01/23 Sena Dominguez PA [address] [place] [address] [place] [address] PCP - BRADY Physician Roll Or Tape Edge Machine Operator 11/02/23 Levy Barry MD [address] [place] [address] [place] [address] PCP - General Family Medicine 12/20/23 documented as of this encounter
--- OUTSIDE RECORDS SUMMARY | 2025-08-08 14:35 | XMS_ITS | Encounter Summary ---
Author Organization [facility] work ([facility]) Address [address] [place] [address] Care Team Providers Care Tenter Name Role Phone Meme Steel MD Primary Care Provider [phone] Pcp, Pcp Primary Care Provider Unavailabl Guadalupe Bardales MD Primary Care Provider [phone] Sena Dominguez Unavailable [phone] Levy Barry MD Primary Care Provider Unavailab le Source Comments The information that you have received may contain highly confidential and/or federally protected health information. This information has been disclosed to you from records protected by [facility]. The law prohibits you [...] contact the sender immediately.[facility] ([facility]) Encounter Details Date Type Department Care Team (Late st Contact Info) Description 2004 Historical Note [facility] [employer] System Devyn Vásquez MD [address] [place] [address] [phone] Social History Tobacco Use Types Packs/Day Years [...] - [facility] [address] [facility] [place] [phone] Brenda Clay MD [address] [facility] [address] [place] [address] 04/15/2026 10:00 AM EDT Office Visit [facility] at [facility] + [facility] [address] [facility] [address] [place] [address] Sena Dominguez PA [address] [facility] [place] [address] documented as of this encounter Visit Diagnoses Not on filedocumented in this encounter Care Teams Tenter Relationship Specialty Start Date End Date Meme Steel MD [address] [place] [address] [place] [address] PCP - General Pediatrics 06/05/18 04/25/22 No Pcp, Pcp PCP - General 06/08/22 07/19/22 Guadalupe Mcbride MD PCP - General Family Medicine 07/20/22 11/01/23 Sena Dominguez PA [address] [place] [address] [place] [address] PCP - BRADY Physician Non Destructive Testing Technician 11/02/23 Levy Barry MD [address] [place] [address] [place] [address] PCP - General Family Medicine 12/20/23 documented as of this encounter
--- OUTSIDE RECORDS SUMMARY | 2025-08-08 14:35 | XMS_ITS | Encounter Summary ---
Author Organization [facility] work ([facility]) Address [address] [place] [address] Care Team Providers Care Quality Assurance Monitor Final Name Role Phone Meme Steel MD Primary Care Provider [phone] Pcp, Pcp Primary Care Provider Unavailabl Guadalupe Bardales MD Primary Care Provider [phone] Sena Dominguez Unavailable [phone] Levy Barry MD Primary Care Provider Unavailab le Source Comments The information that you have received may contain highly confidential and/or federally protected health information. This information has been disclosed to you from records protected by [facility]. The law prohibits you from [...] error, please contact the sender immediately.[facility] ([facility]) Encounter Details Date Type Department Care Team (Late st Contact Info) Description 11/14/2006 Historical Note [facility] [employer] System Devyn Vásquez MD [address] [place] [address] [phone] Social History Tobacco Use Types Packs/Day Years [...] LEATHA CARRILLO - [facility] [address] [facility] [address] [place] [phone] Brenda Clay MD [address] [facility] [address] [place] [address] 04/15/2026 10:00 AM EDT Office Visit [facility]HA [facility] at [facility] + [facility] [address] [facility] [address] [place] [address] Sena Dominguez PA [address] [facility] [place] [address] documented as of this encounter Visit Diagnoses Not on filedocumented in this encounter Care Teams Quality Assurance Monitor Final Relationship Specialty Start Date End Date Meme Steel MD [address] [place] [address] 105 [place] [address] PCP - General Pediatrics 06/05/18 04/25/22 No Pcp, Pcp PCP - General 06/08/22 07/19/22 Guadalupe Mcbride MD PCP - General Family Medicine 07/20/22 11/01/23 Sena Dominguez PA [address] [place] [address] [place] [address] PCP - BRADY Physician Database Architect 11/02/23 Levy Barry MD [address] [place] [address] [place] [address] PCP - General Family Medicine 12/20/23 documented as of this encounter
--- OUTSIDE RECORDS SUMMARY | 2025-08-08 14:35 | XMS_ITS | Encounter Summary ---
Author Organization [facility] work ([facility]) Address [address] [place] [address] Care Team Providers Care Wax Room Supervisor Name Role Phone Meme Steel MD Primary Care Provider [phone] Pcp, Pcp Primary Care Provider Unavailabl Guadalupe Bardales MD Primary Care Provider [phone] Sena Dominguez Unavailable [phone] Levy Barry MD Primary Care Provider Unavailab le Source Comments The information that you have received may contain highly confidential and/or federally protected health information. This information has been disclosed to you from records protected by [facility]. The law prohibits you [...] error, please contact the sender immediately.[facility] ([facility]) Encounter Details Date Type Department Care Team (Late st Contact Info) Description 2004 Historical Note [facility] [employer] System Devyn Vsáquez MD [address] [place] [address] [phone] Social History Tobacco Use Types Packs/Day Years [...] CARRILLO - [facility] [address] [facility] [address] [place] [phone] Brenda Clay MD [address] [facility] [address] [place] [address] 04/15/2026 10:00 AM EDT Office Visit LE[facility]HA [facility] at [facility] + [facility] [address] [facility] [address] [place] [address] Sena Dominguez PA [address] [facility] [place] [address] documented as of this encounter Visit Diagnoses Not on filedocumented in this encounter Care Teams Wax Room Supervisor Relationship Specialty Start Date End Date Meme Steel MD [address] [place] [address] 105 [place] [address] PCP - General Pediatrics 06/05/18 04/25/22 No Pcp, Pcp PCP - General 06/08/22 07/19/22 Guadalupe Mcbride MD PCP - General Family Medicine 07/20/22 11/01/23 Sena Dominguez PA [address] [place] [address] [place] [address] PCP - BRADY Physician Certified Substance Abuse Counselor 11/02/23 Levy Barry MD [address] [place] [address] [place] [address] PCP - General Family Medicine 12/20/23 documented as of this encounter
--- OUTSIDE RECORDS SUMMARY | 2025-08-08 14:35 | XMS_ITS | Encounter Summary ---
Author Organization [facility] work ([facility]) Address [address] [place] [address] Care Team Providers Care Business Leader Name Role Phone Meme Steel MD Primary Care Provider [phone] Pcp, Pcp Primary Care Provider Unavailabl Guadalupe Bardales MD Primary Care Provider [phone] Sena Dominguez Unavailable [phone] Levy Barry MD Primary Care Provider Unavailab le Source Comments The information that you have received may contain highly confidential and/or federally protected health information. This information has been disclosed to you from records protected by [facility]. The law prohibits you [...] contact the sender immediately.[facility] ([facility]) Encounter Details Date Type Department Care Team (Late st Contact Info) Description 2004 Historical Note [facility] [employer] System Devyn Vásquez MD [address] [place] [address] [phone] Social History Tobacco Use Types Packs/Day Years [...] CARRILLO - [facility] [address] [facility] [address] [place] [phone] Brenda Clay MD [address] [facility] [address] [place] [address] 04/15/2026 10:00 AM EDT Office Visit [facility] at [facility] + [facility] [address] [facility] [address] [place] [address] Sena Dominguez PA [address] [facility] [place] [address] documented as of this encounter Visit Diagnoses Not on filedocumented in this encounter Care Teams Business Leader Relationship Specialty Start Date End Date Meme Steel MD [address] [place] [address] 105 [place] [address] PCP - General Pediatrics 06/05/18 04/25/22 No Pcp, Pcp PCP - General 06/08/22 07/19/22 Guadalupe Mcbride MD PCP - General Family Medicine 07/20/22 11/01/23 Sena Dominguez PA [address] [place] [address] [place] [address] PCP - BRADY Physician Biztalk Administrator 11/02/23 Levy Barry MD [address] [place] [address] [place] [address] PCP - General Family Medicine 12/20/23 documented as of this encounter
--- OUTSIDE RECORDS SUMMARY | 2025-08-08 14:35 | XMS_ITS | Encounter Summary ---
Author Organization [facility] work ([facility]) Address [address] [place] [address] Care Team Providers Care Pulper Operator Name Role Phone Meme Steel MD Primary Care Provider [phone] Pcp, Pcp Primary Care Provider Unavailabl Guadalupe Bardales MD Primary Care Provider [phone] Sena Dominguez Unavailable [phone] Levy Barry MD Primary Care Provider Unavailab le Source Comments The information that you have received may contain highly confidential and/or federally protected health information. This information has been disclosed to you from records protected by [facility]. The law prohibits you from [...] sender immediately.[facility] ([facility]) Encounter Details Date Type Department Care Team (Late st Contact Info) Description 06/26/2007 Historical Note [facility] M[employer] System Devyn Vásquez MD [address] [place] [address] [phone] Social History Tobacco Use Types Packs/Day Years [...] LEATHA CARRILLO - [facility] [address] [facility] [address] [place] [phone] Brenda Clay MD [address] [facility] [address] [place] [address] 04/15/2026 10:00 AM EDT Office Visit [facility]HA [facility] at [facility] + [facility] [address] [facility] [address] [place] [address] Sena Dominguez PA [address] [facility] [place] [address] documented as of this encounter Visit Diagnoses Not on filedocumented in this encounter Care Teams Pulper Operator Relationship Specialty Start Date End Date Meme Steel MD [address] [place] [address] 105 [place] [address] PCP - General Pediatrics 06/05/18 04/25/22 No Pcp, Pcp PCP - General 06/08/22 07/19/22 Guadalupe Mcbride MD PCP - General Family Medicine 07/20/22 11/01/23 Sena Dominguez PA [address] [place] [address] [place] [address] PCP - BRADY Physician Lobby Concierge 11/02/23 Levy Barry MD [address] [place] [address] [place] [address] PCP - General Family Medicine 12/20/23 documented as of this encounter
--- OUTSIDE RECORDS SUMMARY | 2025-08-08 14:35 | XMS_ITS | Encounter Summary ---
Author Organization [facility] work ([facility]) Address [address] [place] [address] Care Team Providers Care Lumber Cutter Name Role Phone Meme Steel MD Primary Care Provider [phone] Pcp, Pcp Primary Care Provider Unavailabl Guadalupe Bardales MD Primary Care Provider [phone] Sena Dominguez Unavailable [phone] Levy Barry MD Primary Care Provider Unavailab le Source Comments The information that you have received may contain highly confidential and/or federally protected health information. This information has been disclosed to you from records protected by [facility]. The law prohibits you [...] immediately.[facility] ([facility]) Encounter Details Date Type Department Care Team (Late st Contact Info) Description 06/01/2006 Historical Note [facility] [employer] System Devyn Vásquez MD [address] [place] [address] [phone] Social History Tobacco Use Types Packs/Day Years [...] [facility] [address] [facility] [address] [place] [phone] Brenda Clay MD [address] [facility] [address] [place] [phone] 04/15/2026 10:00 AM EDT Office Visit LEATHA Primary [facility] at [facility] + [facility] [address] [facility] [address] [place] [address] Sena Dominguez PA [address] [facility] [place] [address] documented as of this encounter Visit Diagnoses Not on filedocumented in this encounter Care Teams Lumber Cutter Relationship Specialty Start Date End Date Meme Steel MD [address] [place] [address] 105 [place] [address] PCP - General Pediatrics 06/05/18 04/25/22 No Pcp, Pcp PCP - General 06/08/22 07/19/22 Guadalupe Mcbride MD PCP - General Family Medicine 07/20/22 11/01/23 Sena Dominguez PA [address] [place] [address] [place] [address] PCP - BRADY Physician Pharmaceutical Sales Specialist 11/02/23 Levy Barry MD [address] [place] [address] [place] [address] PCP - General Family Medicine 12/20/23 documented as of this encounter
--- OUTSIDE RECORDS SUMMARY | 2025-08-08 14:35 | XMS_ITS | Encounter Summary ---
Author Organization [facility] work ([facility]) Address [address] [place] [address] Care Team Providers Care Rn Document Improvement Name Role Phone Meme Steel MD Primary Care Provider [phone] Pcp, Pcp Primary Care Provider Unavailabl Guadalupe Bardales MD Primary Care Provider [phone] Sena Dominguez Unavailable [phone] Levy Barry MD Primary Care Provider Unavailab le Source Comments The information that you have received may contain highly confidential and/or federally protected health information. This information has been disclosed to you from records protected by [facility]. The law prohibits you [...] contact the sender immediately.[facility] ([facility]) Encounter Details Date Type Department Care Team (Late st Contact Info) Description 2004 Historical Note [facility] [employer] System Devyn Vásquez MD [address] [place] [address] [phone] Social History Tobacco Use Types Packs/Day Years [...] - [facility] [address] [facility] [address] [place] [phone] Brenda Clay MD [address] [facility] [address] [place] [address] 04/15/2026 10:00 AM EDT Office Visit LEATHA Primary [facility] at [facility] + [facility] [address] [facility] [address] [place] [address] Sena Dominguez PA [address] [facility] [place] [address] documented as of this encounter Visit Diagnoses Not on filedocumented in this encounter Care Teams Rn Document Improvement Relationship Specialty Start Date End Date Meme Steel MD [address] [place] [address] 105 [place] [address] PCP - General Pediatrics 06/05/18 04/25/22 No Pcp, Pcp PCP - General 06/08/22 07/19/22 Guadalupe Mcbride MD PCP - General Family Medicine 07/20/22 11/01/23 Sena Dominguez PA [address] [place] [address] [place] [address] PCP - BRADY Physician Hole Digger Truck Driver 11/02/23 Levy Barry MD [address] [place] [address] [place] [address] PCP - General Family Medicine 12/20/23 documented as of this encounter
--- OUTSIDE RECORDS SUMMARY | 2025-08-08 14:36 | XMS_ITS | Encounter Summary ---
Author Organization [facility] work ([facility]) Address [address] [place] [address] Care Team Providers Care Veterinary Surgery Technician Name Role Phone Meme Steel MD Primary Care Provider [phone] Pcp, Pcp Primary Care Provider Unavailabl Guadalupe Bardales MD Primary Care Provider [phone] Sena Dominguez Unavailable [phone] Levy Barry MD Primary Care Provider Unavailab le Source Comments The information that you have received may contain highly confidential and/or federally protected health information. This information has been disclosed to you from records protected by [facility]. The law prohibits you [...] error, please contact the sender immediately.[facility] ([facility]) Encounter Details Date Type Department Care Team (Late st Contact Info) Description 05/24/2012 Historical Note [facility] Devyn Vásquez MD [address] [place] [address] [phone] Social History Tobacco Use Types Packs/Day Years [...] LEATHA CARRILLO - [facility] [address] [facility] [address] [place] [phone] Brenda Clay MD [address] [facility] [address] [place] [address] 04/15/2026 10:00 AM EDT Office Visit [facility] [address] [facility] [address] [place] [address] Sena Dominguez PA [address] [facility] [place] [address] documented as of this encounter Visit Diagnoses Not on filedocumented in this encounter Care Teams Veterinary Surgery Technician Relationship Specialty Start Date End Date Meme Steel MD [address] [place] [address] 105 [place] [address] PCP - General Pediatrics 06/05/18 04/25/22 No Pcp, Pcp PCP - General 06/08/22 07/19/22 Guadalupe Mcbride MD PCP - General Family Medicine 07/20/22 11/01/23 Sena Dominguez PA [address] [place] [address] [place] [address] PCP - BRADY Physician Route Vending Machine Servicer 11/02/23 Levy Barry MD [address] [place] [address] [place] [address] PCP - General Family Medicine 12/20/23 documented as of this encounter
--- OUTSIDE RECORDS SUMMARY | 2025-08-08 14:36 | XMS_ITS | Encounter Summary ---
Author Organization [facility] work ([facility] Address [address] [place] [address] Care Team Providers Care Farrowing Manager Name Role Phone Meme Steel MD Primary Care Provider [phone] No Pcp, Pcp Primary Care Provider Unavailabl Guadalupe Bardales MD Primary Care Provider [phone] Sena Dominguez Unavailable [phone] Levy Barry MD Primary Care Provider Unavailab le Source Comments The information that you have received may contain highly confidential and/or federally protected health information. This information has been disclosed to you from records protected by [facility]. The law prohibits you [...] error, please contact the sender immediately.[facility] ([facility] Encounter Details Date Type Department Care Team (Late st Contact Info) Description 01/24/2006 Historical Note [facility] [employer] System Devyn Vásquez MD [address] [place] [address] [phone] Social History Tobacco Use Types Packs/Day Years [...] CARRILLO - [facility] [address] [facility] [address] [place] [phone] Brenda Clay MD [address] [facility] [address] [place] [address] 04/15/2026 10:00 AM EDT Office Visit LEATHA Primary Care at [facility] + [facility] [address] [facility] [address] [place] [address] Sena Dominguez PA [address] [facility] [place] [address] documented as of this encounter Visit Diagnoses Not on filedocumented in this encounter Care Teams Farrowing Manager Relationship Specialty Start Date End Date Meme Steel MD [address] [place] [address] 105 [place] [address] PCP - General Pediatrics 06/05/18 04/25/22 No Pcp, Pcp PCP - General 06/08/22 07/19/22 Guadalupe Mcbride MD PCP - General Family Medicine 07/20/22 11/01/23 Sena Dominguez PA [address] [place] [address] [place] [address] PCP - BRADY Physician Credit Card Control Clerk 11/02/23 Levy Barry MD [address] [place] [address] [place] [address] PCP - General Family Medicine 12/20/23 documented as of this encounter
--- OUTSIDE RECORDS SUMMARY | 2025-08-08 14:36 | XMS_ITS | Encounter Summary ---
Author Organization [facility] work ([facility]) Address [address] [address] [address] [place] [address] Care Team Providers Care Riveter Pneumatic Name Role Phone Meme Steel MD Primary Care Provider [phone] No Pcp, Pcp Primary Care Provider Unavailabl Guadalupe Bardales MD Primary Care Provider [phone] Sena Dominguez Unavailable [phone] Levy Barry MD Primary Care Provider Unavailab le Source Comments The information that you have received may contain highly confidential and/or federally protected health information. This information has been disclosed to you from records protected by [facility]. The law prohibits you [...] Contact Info) Description 05/08/2012 Historical Note [facility] [employer] System Devyn Vásquez MD [address] [place] [address] [phone] Social History Tobacco Use Types Packs/Day Years [...] CARRILLO - [facility] [address] [facility] [address] [place] [phone] Brenda Clay MD [address] [facility] [address] [place] [address] 04/15/2026 10:00 AM EDT Office Visit LE[facility]HA [facility] at [facility] + [facility] [address] [facility] [address] [place] [address] Sena Dominguez PA [address] [facility] [place] [address] documented as of this encounter Visit Diagnoses Not on filedocumented in this encounter Care Teams Riveter Pneumatic Relationship Specialty Start Date End Date Meme Steel MD [address] [place] [address] 105 [place] [address] PCP - General Pediatrics 06/05/18 04/25/22 No Pcp, Pcp PCP - General 06/08/22 07/19/22 Guadalupe Mcbride MD PCP - General Family Medicine 07/20/22 11/01/23 Sena Dominguez PA [address] [place] [address] [place] [address] PCP - BRADY Physician Acute Specialist 11/02/23 Levy Barry MD [address] [place] [address] [place] [address] PCP - General Family Medicine 12/20/23 documented as of this encounter
--- OUTSIDE RECORDS SUMMARY | 2025-08-08 14:36 | XMS_ITS | Encounter Summary ---
Author Organization [facility] work ([facility]) Address [address] [place] [address] Care Team Providers Care Director Of Career Services Name Role Phone Meme Steel MD Primary Care Provider [phone] Pcp, Pcp Primary Care Provider Unavailabl Guadalupe Bardales MD Primary Care Provider [phone] Sena Dominguez Unavailable Levy Barry MD Primary Care Provider Unavailab le Source Comments The information that you have received may contain highly confidential and/or federally protected health information. This information has been disclosed to you from records protected by [facility]. The law prohibits you from [...] please contact the sender immediately.[facility] ([facility]) Encounter Details Date Type Department Care Team (Late st Contact Info) Description 2004 Historical Note [facility] Obatech System Devyn Vásquez MD [address] [place] [address] [phone] Social History Tobacco Use Types Packs/Day Years [...] CARRILLO - [facility] [address] [facility] [address] [place] [phone] Brenda Clay MD [address] [facility] [address] [place] [address] 04/15/2026 10:00 AM EDT Office Visit [facility] + [facility] [address] [place] [address] Sena Dominguez PA [address] [facility] [place] [address] documented as of this encounter Visit Diagnoses Not on filedocumented in this encounter Care Teams Director Of Career Services Relationship Specialty Start Date End Date Meme Steel MD [address] [place] [address] [place] [address] PCP - General Pediatrics 06/05/18 04/25/22 No Pcp, Pcp PCP - General 06/08/22 07/19/22 Guadalupe Mcbride MD PCP - General Family Medicine 07/20/22 11/01/23 Sena Dominguez PA [address] [place] [address] [place] [address] PCP - BRADY Physician Microfiche Camera Operator 11/02/23 Levy Barry MD [address] [place] [address] [place] [address] PCP - General Family Medicine 12/20/23 documented as of this encounter
--- OUTSIDE RECORDS SUMMARY | 2025-08-08 14:36 | XMS_ITS | Encounter Summary ---
Author Organization [facility] work ([facility]) Address [address] [place] [address] Care Team Providers Care Stamper Blocker Name Role Phone Meme Steel MD Primary Care Provider [phone] Pcp, Pcp Primary Care Provider Unavailabl Guadalupe Bardales MD Primary Care Provider [phone] Sena Dominguez Unavailable [phone] Levy Barry MD Primary Care Provider Unavailab le Source Comments The information that you have received may contain highly confidential and/or federally protected health information. This information has been disclosed to you from records protected by [facility]. The law prohibits you [...] contact the sender immediately.[facility] ([facility]) Encounter Details Date Type Department Care Team (Late st Contact Info) Description 09/16/2012 Historical Note [facility] WorkWell Systems System Devyn Vásquez MD [address] [place] [address] [phone] Social History Tobacco Use Types Packs/Day Years [...] - [facility] at [facility] [address] [facility] [address] [place] [phone] Brenda Clay MD [address] [facility] [address] [place] [address] 04/15/2026 10:00 AM EDT Office Visit [facility] at [facility] + [facility] [address] [facility] [address] [facility] [address] [place] [address] Sena Dominguez PA [address] [facility] [place] [address] documented as of this encounter Visit Diagnoses Not on filedocumented in this encounter Care Teams Stamper Blocker Relationship Specialty Start Date End Date Meme Steel MD [address] [place] [address] 105 [place] [address] PCP - General Pediatrics 06/05/18 04/25/22 No Pcp, Pcp PCP - General 06/08/22 07/19/22 Guadalupe Mcbride MD PCP - General Family Medicine 07/20/22 11/01/23 Sena Dominguez PA [address] [place] [address] [place] [address] PCP - BRADY Physician Material Processor 11/02/23 Levy Barry MD [address] [place] [address] [place] [address] PCP - General Family Medicine 12/20/23 documented as of this encounter
--- OUTSIDE RECORDS SUMMARY | 2025-08-08 14:36 | XMS_ITS | Encounter Summary ---
Author Organization [facility] work ([facility]) Address [address] [place] [address] Care Team Providers Care Metalizing Machine Operator Automatic Name Role Phone Meme Steel MD Primary Care Provider [phone] Pcp, Pcp Primary Care Provider Unavailabl Guadalupe Bardales MD Primary Care Provider [phone] Sena Dominguez Unavailable [phone] Levy Barry MD Primary Care Provider Unavailab le Source Comments The information that you have received may contain highly confidential and/or federally protected health information. This information has been disclosed to you from records protected by [facility]. The law prohibits you from [...] contact the sender immediately.[facility] ([facility]) Encounter Details Date Type Department Care Team (Late st Contact Info) Description 02/08/2006 Historical Note [facility] Embedded Internet Solutions System Devyn Vásquez MD [address] [place] [address] [phone] Social History Tobacco Use Types Packs/Day Years [...] LEATHA CARRILLO - [facility] at [facility] [address] [facility] [address] [place] [phone] Brenda Clay MD [address] [facility] [address] [place] [address] 04/15/2026 10:00 AM EDT Office Visit [facility] at [facility] + [facility] [address] [facility] [address] [place] [address] Sena Dominguez PA [address] [facility] [place] [address] documented as of this encounter Visit Diagnoses Not on filedocumented in this encounter Care Teams Metalizing Machine Operator Automatic Relationship Specialty Start Date End Date Meme Steel MD [address] [place] [address] 105 [place] [address] PCP - General Pediatrics 06/05/18 04/25/22 No Pcp, Pcp PCP - General 06/08/22 07/19/22 Guadalupe Mcbride MD PCP - General Family Medicine 07/20/22 11/01/23 Sena Dominguez PA [address] [place] [address] [place] [address] PCP - BRADY Physician Block Engraver 11/02/23 Levy Barry MD [address] [place] [address] [place] [address] PCP - General Family Medicine 12/20/23 documented as of this encounter
--- OUTSIDE RECORDS SUMMARY | 2025-08-08 14:36 | XMS_ITS | Encounter Summary ---
Author Organization [facility] work ([facility]) Address [address] [place] [address] Care Team Providers Care Tower Director Name Role Phone Meme Steel MD Primary Care Provider [phone] Pcp, Pcp Primary Care Provider Unavailabl Guadalupe Bardales MD Primary Care Provider [phone] Sena Dominguez Unavailable [phone] Levy Barry MD Primary Care Provider Unavailab le Source Comments The information that you have received may contain highly confidential and/or federally protected health information. This information has been disclosed to you from records protected by [facility]. The law prohibits you from making [...] the sender immediately.[facility] ([facility]) Encounter Details Date Type Department Care Team (Late st Contact Info) Description 05/24/2012 Historical Note [facility] Phrazit System Devyn Vásquez MD [address] [place] [address] [phone] Social History Tobacco Use Types Packs/Day Years [...] - [facility] [address] [facility] [address] [place] [phone] Brenda Clay MD [address] [facility] [address] [place] [address] 04/15/2026 10:00 AM EDT Office Visit [facility] at [facility] + [facility] [address] [facility] [address] [place] [phone] Sena Dominguez PA [address] [facility] [place] [address] documented as of this encounter Visit Diagnoses Not on filedocumented in this encounter Care Teams Tower Director Relationship Specialty Start Date End Date Meme Steel MD [address] [place] [address] 105 [place] [address] PCP - General Pediatrics 06/05/18 04/25/22 No Pcp, Pcp PCP - General 06/08/22 07/19/22 Guadalupe Mcbride MD PCP - General Family Medicine 07/20/22 11/01/23 Sena Dominguez PA [address] [place] [address] [place] [address] PCP - BRADY Physician Steam Conditioning Operator 11/02/23 Levy Barry MD [address] [place] [address] [place] [address] PCP - General Family Medicine 12/20/23 documented as of this encounter
--- OUTSIDE RECORDS SUMMARY | 2025-08-08 14:36 | XMS_ITS | Encounter Summary ---
Author Organization [facility] work ([facility]) Address [address] [place] [address] Care Team Providers Care Inker Name Role Phone Meme Steel MD Primary Care Provider [phone] No Pcp, Pcp Primary Care Provider Unavailabl Guadalupe Bardales MD Primary Care Provider [phone] Sena Dominguez Unavailable [phone] Levy Barry MD Primary Care Provider Unavailab le Source Comments The information that you have received may contain highly confidential and/or federally protected health information. This information has been disclosed to you from records protected by [facility]. The law prohibits you from [...] sender immediately.[facility] ([facility]) Encounter Details Date Type Department Care Team (Late st Contact Info) Description 05/08/2012 Historical Note [facility] aihuishou System Devyn Vásquez MD [address] [place] [address] [phone] Social History Tobacco Use Types Packs/Day Years [...] LEATHA CARRILLO - [facility] [address] [facility] [address] [place] [phone] Brenda Clay MD [address] [facility] [address] [place] [address] 04/15/2026 10:00 AM EDT Office Visit [facility]HA [facility] at [facility] + [facility] [address] [facility] [address] [place] [address] Sena Dominguez PA [address] [facility] [place] [address] documented as of this encounter Visit Diagnoses Not on filedocumented in this encounter Care Teams Inker Relationship Specialty Start Date End Date Meme Steel MD [address] [place] [address] 105 [place] [address] PCP - General Pediatrics 06/05/18 04/25/22 No Pcp, Pcp PCP - General 06/08/22 07/19/22 Guadalupe Mcbride MD PCP - General Family Medicine 07/20/22 11/01/23 Sena Dominguez PA [address] [place] [address] [place] [address] PCP - BRADY Physician Voice Professor 11/02/23 Levy Barry MD [address] [place] [address] [place] [address] PCP - General Family Medicine 12/20/23 documented as of this encounter
--- OUTSIDE RECORDS SUMMARY | 2025-08-08 14:36 | XMS_ITS | Encounter Summary ---
Author Organization [facility] work ([facility]) Address [address] [facility] [facility] [address] [place] [address] Care Team Providers Care Stations Superintendent Name Role Phone Meme Steel MD Primary Care Provider No Pcp, Pcp Primary Care Provider Unavailabl Guadalupe Bardales MD Primary Care Provider [phone] Sena Dominguez Unavailable [phone] Levy Barry MD Primary Care Provider Unavailab le Source Comments The information that you have received may contain highly confidential and/or federally protected health information. This information has been disclosed to you from records protected by [facility]. The law prohibits you from making [...] please contact the sender immediately.[facility] ([facility]) Encounter Details Date Type Department Care Team (Late st Contact Info) Description 02/08/2006 Historical Note [facility] MOOI System Devyn Vásquez MD [address] [place] [address] [phone] Social History Tobacco Use Types Packs/Day Years [...] LEATHA CARRILLO - [facility] [address] [facility] [address] [place] [phone] Brenda Clay MD [address] [facility] [address] [place] [phone] 04/15/2026 10:00 AM EDT Office Visit [facility]HA [facility] at [facility] + [facility] [address] [facility] [address] [place] [address] Sena Dominguez PA [address] [facility] [place] [address] documented as of this encounter Visit Diagnoses Not on filedocumented in this encounter Care Teams Stations Superintendent Relationship Specialty Start Date End Date Meme Steel MD [address] [place] [address] 105 [place] [address] PCP - General Pediatrics 06/05/18 04/25/22 No Pcp, Pcp PCP - General 06/08/22 07/19/22 Guadalupe Mcbride MD PCP - General Family Medicine 07/20/22 11/01/23 Sena Dominguez PA [address] [place] [address] [place] [address] PCP - BRADY Physician Mother'S Helper 11/02/23 Levy Barry MD [address] [place] [address] [place] [address] PCP - General Family Medicine 12/20/23 documented as of this encounter
--- OUTSIDE RECORDS SUMMARY | 2025-08-08 14:36 | XMS_ITS | Encounter Summary ---
Author Organization [facility] work ([facility]) Address [address] [place] [address] Care Team Providers Care Log Deck Tender Name Role Phone Meme Steel MD Primary Care Provider [phone] Pcp, Pcp Primary Care Provider Unavailabl Guadalupe Bardales MD Primary Care Provider [phone] Sena Dominguez Unavailable [phone] Levy Barry MD Primary Care Provider Unavailab le Source Comments The information that you have received may contain highly confidential and/or federally protected health information. This information has been disclosed to you from records protected by [facility]. The law prohibits you from making [...] the sender immediately.[facility] ([facility]) Encounter Details Date Type Department Care Team (Late st Contact Info) Description 01/26/2006 Historical Note SVMG PromisePay System Devyn Vásquez MD [address] [place] [address] [phone] Social History Tobacco Use Types Packs/Day Years [...] LEATHA CARRILLO - [facility] [address] [facility] [address] [place] [phone] Brenda Clay MD [address] [facility] [address] [place] [phone] 04/15/2026 10:00 AM EDT Office Visit LEATHA [facility] at [facility] + [facility] [address] [facility] [address] [place] [address] Sena Dominguez PA [address] [facility] [place] [address] documented as of this encounter Visit Diagnoses Not on filedocumented in this encounter Care Teams Log Deck Tender Relationship Specialty Start Date End Date Meme Steel MD [address] [place] [address] 105 [place] [address] PCP - General Pediatrics 06/05/18 04/25/22 No Pcp, Pcp PCP - General 06/08/22 07/19/22 Guadalupe Mcbride MD PCP - General Family Medicine 07/20/22 11/01/23 Sena Dominguez PA [address] [place] [address] [place] [address] PCP - BRADY Physician Inspector Wreath 11/02/23 Levy Barry MD [address] [place] [address] [place] [address] PCP - General Family Medicine 12/20/23 documented as of this encounter
--- OUTSIDE RECORDS SUMMARY | 2025-08-08 14:36 | XMS_ITS | Encounter Summary ---
Author Organization [facility] work ([facility]) Address [address] [place] [address] Care Team Providers Care Water Taxi Ferry Operator Name Role Phone Meme Steel MD Primary Care Provider [phone] Pcp, Pcp Primary Care Provider Unavailabl Guadalupe Bardales MD Primary Care Provider [phone] Sena Dominguez Unavailable [phone] Levy Barry MD Primary Care Provider Unavailab le Source Comments The information that you have received may contain highly confidential and/or federally protected health information. This information has been disclosed to you from records protected by [facility]. The law prohibits you [...] Contact Info) Description 06/14/2007 Historical Note SVMG Spreadknowledge System Devyn Vásquez MD [address] [place] [address] [phone] Social History Tobacco Use Types Packs/Day Years [...] CARRILLO - [facility] [address] [facility] [facility] [address] [place] [phone] Brenda Clay MD [address] [facility] [address] [place] [address] 04/15/2026 10:00 AM EDT Office Visit [facility]HA Primary [facility] at [facility] + [facility] [address] [facility] [address] [place] [address] Sena Dominguez PA [address] [facility] [place] [address] documented as of this encounter Visit Diagnoses Not on filedocumented in this encounter Care Teams Water Taxi Ferry Operator Relationship Specialty Start Date End Date Meme Steel MD [address] [place] [address] 105 [place] [address] PCP - General Pediatrics 06/05/18 04/25/22 No Pcp, Pcp PCP - General 06/08/22 07/19/22 Guadalupe Mcbride MD PCP - General Family Medicine 07/20/22 11/01/23 Sena Dominguez PA [address] [place] [address] [place] [address] PCP - BRADY Physician Wharfmaster 11/02/23 Levy Barry MD [address] [place] [address] [place] [address] PCP - General Family Medicine 12/20/23 documented as of this encounter
--- OUTSIDE RECORDS SUMMARY | 2025-08-08 14:36 | XMS_ITS | Encounter Summary ---
Author Organization [facility] work ([facility]) Address [address] [place] [address] Care Team Providers Care Field Service Engineer Name Role Phone Meme Steel MD Primary Care Provider [phone] No Pcp, Pcp Primary Care Provider Unavailabl Guadalupe Bardales MD Primary Care Provider [phone] Sena Dominguez Unavailable [phone] Levy Barry MD Primary Care Provider Unavailab le Source Comments The information that you have received may contain highly confidential and/or federally protected health information. This information has been disclosed to you from records protected by [facility]. The law prohibits you [...] please contact the sender immediately.[facility] ([facility]) Encounter Details Date Type Department Care Team (Late st Contact Info) Description 05/24/2012 Historical Note SVMG Lionseek System Devyn Vásquez MD [address] [place] [address] [phone] Social History Tobacco Use Types Packs/Day Years [...] LEATHA CARRILLO - [facility] [address] [facility] [address] [place] [phone] Brenda Clay MD [address] [facility] [address] [place] [phone] 04/15/2026 10:00 AM EDT Office Visit LEATHA [facility] at [facility] + [facility] [address] [facility] [address] [place] [address] Sena Dominguez PA [address] [facility] [place] [address] documented as of this encounter Visit Diagnoses Not on filedocumented in this encounter Care Teams Field Service Engineer Relationship Specialty Start Date End Date Meme Steel MD [address] [place] [address] 105 [place] [address] PCP - General Pediatrics 06/05/18 04/25/22 No Pcp, Pcp PCP - General 06/08/22 07/19/22 Guadalupe Mcbride MD PCP - General Family Medicine 07/20/22 11/01/23 Sena Dominguez PA [address] [place] [address] [place] [address] PCP - BRADY Physician Correctional Case Records Supervisor 11/02/23 Levy Barry MD [address] [place] [address] [place] [address] PCP - General Family Medicine 12/20/23 documented as of this encounter
--- OUTSIDE RECORDS SUMMARY | 2025-08-08 14:36 | XMS_ITS | Encounter Summary ---
Author Organization [facility] work ([facility]) Address [address] [place] [address] Care Team Providers Care Beet End Supervisor Name Role Phone Meme Steel MD Primary Care Provider [phone] Pcp, Pcp Primary Care Provider Unavailabl Guadalupe Bardales MD Primary Care Provider [phone] Sena Dominguez Unavailable [phone] Levy Barry MD Primary Care Provider Unavailab le Source Comments The information that you have received may contain highly confidential and/or federally protected health information. This information has been disclosed to you from records protected by [facility]. The law prohibits you from [...] error, please contact the sender immediately.[facility] ([facility]) Encounter Details Date Type Department Care Team (Late st Contact Info) Description 2004 Historical Note SVMG ContestMachine System Devyn Vásquez MD [address] [place] [address] [phone] Social History Tobacco Use Types Packs/Day Years [...] - [facility] at [facility] [address] [facility] [address] [place] [phone] Brenda Clay MD [address] [facility] [address] [place] [phone] 04/15/2026 10:00 AM EDT Office Visit LE[facility]HA Primary [facility] at [facility] + [facility] [address] [facility] [address] [place] [address] Sena Dominguez PA [address] [facility] [place] [address] documented as of this encounter Visit Diagnoses Not on filedocumented in this encounter Care Teams Beet End Supervisor Relationship Specialty Start Date End Date Meme Steel MD [address] [place] [address] 105 [place] [address] PCP - General Pediatrics 06/05/18 04/25/22 No Pcp, Pcp PCP - General 06/08/22 07/19/22 Guadalupe Mcrbide MD PCP - General Family Medicine 07/20/22 11/01/23 Sena Dominguez PA [address] [place] [address] [place] [address] PCP - BRADY Physician Methods Study Analyst 11/02/23 Levy Barry MD [address] [place] [address] [place] [address] PCP - General Family Medicine 12/20/23 documented as of this encounter
--- OUTSIDE RECORDS SUMMARY | 2025-08-08 14:36 | XMS_ITS | Encounter Summary ---
Author Organization [facility] work ([facility]) Address [address] [facility] [address] [place] [address] Care Team Providers Care Ruby On Rails Consultant Name Role Phone Meme Steel MD Primary Care Provider [phone] Pcp, Pcp Primary Care Provider Unavailabl Guadalupe Bardales MD Primary Care Provider [phone] Sena Dominguez Unavailable [phone] Levy Barry MD Primary Care Provider Unavailab le Source Comments The information that you have received may contain highly confidential and/or federally protected health information. This information has been disclosed to you from records protected by [facility]. The law prohibits [...] contact the sender immediately.[facility] ([facility]) Encounter Details Date Type Department Care Team (Late st Contact Info) Description 05/24/2012 Historical Note [facility] [employer] Devyn Vásquez MD [address] [place] [address] [phone] Social History Tobacco Use Types Packs/Day Years [...] LEATHA CARRILLO - [facility] [address] [facility] [address] [place] [phone] Brenda Clay MD [address] [facility] [address] [place] [address] 04/15/2026 10:00 AM EDT Office Visit [facility] at [facility] [address] [facility] [address] [place] [address] Sena Dominguez PA [address] [facility] [place] [address] documented as of this encounter Visit Diagnoses Not on filedocumented in this encounter Care Teams Ruby On Rails Consultant Relationship Specialty Start Date End Date Meme Steel MD [address] [place] [address] 105 [place] [address] PCP - General Pediatrics 06/05/18 04/25/22 No Pcp, Pcp PCP - General 06/08/22 07/19/22 Guadalupe Mcbride MD PCP - General Family Medicine 07/20/22 11/01/23 Sena Dominguez PA [address] [place] [address] [place] [address] PCP - BRADY Physician Forming Roll Operator Heavy Duty 11/02/23 Levy Barry MD [address] [place] [address] [place] [address] PCP - General Family Medicine 12/20/23 documented as of this encounter
--- OUTSIDE RECORDS SUMMARY | 2025-08-08 14:36 | XMS_ITS | Encounter Summary ---
Author Organization [facility] work ([facility]) Address [address] [facility] [address] [place] [address] Care Team Providers Care Aircraft Pilot Name Role Phone Meme Steel MD Primary Care Provider [phone] Pcp, Pcp Primary Care Provider Unavailabl Guadalupe Bardales MD Primary Care Provider [phone] Sena Dominguez Unavailable [phone] Levy Barry MD Primary Care Provider Unavailab le Source Comments The information that you have received may contain highly confidential and/or federally protected health information. This information has been disclosed to you from records protected by [facility]. The law prohibits you [...] error, please contact the sender immediately.[facility] ([facility]) Encounter Details Date Type Department Care Team (Late st Contact Info) Description 02/08/2006 Historical Note [facility] [employer] [facility] Devyn Vásquez MD [address] [place] [address] [phone] Social History Tobacco Use Types Packs/Day Years [...] LEATHA CARRILLO - [facility] [address] [facility] [address] [place] [phone] Brenda Clay MD [address] [facility] [address] [place] [address] 04/15/2026 10:00 AM EDT Office Visit [facility]HA [facility] at [facility] [address] [facility] [address] [place] [address] Sena Dominguez PA [address] [facility] [place] [address] documented as of this encounter Visit Diagnoses Not on filedocumented in this encounter Care Teams Aircraft Pilot Relationship Specialty Start Date End Date Meme Steel MD [address] [place] [address] 105 [place] [address] PCP - General Pediatrics 06/05/18 04/25/22 No Pcp, Pcp PCP - General 06/08/22 07/19/22 Guadalupe Mcbride MD PCP - General Family Medicine 07/20/22 11/01/23 Sena Dominguez PA [address] [place] [address] [place] [address] PCP - BRADY Physician Bituminous Paving Machine Operator 11/02/23 Levy Barry MD [address] [place] [address] [place] [address] PCP - General Family Medicine 12/20/23 documented as of this encounter
--- OUTSIDE RECORDS SUMMARY | 2025-08-08 14:36 | XMS_ITS | Encounter Summary ---
Author Organization [facility] work ([facility]) Address [address] [place] [address] Care Team Providers Care Turret Press Operator Name Role Phone Meme Steel MD Primary Care Provider [phone] Pcp, Pcp Primary Care Provider Unavailabl Guadalupe Bardales MD Primary Care Provider [phone] Sena Dominguez Unavailable [phone] Levy Barry MD Primary Care Provider Unavailab le Source Comments The information that you have received may contain highly confidential and/or federally protected health information. This information has been disclosed to you from records protected by [facility]. The law prohibits you [...] please contact the sender immediately.[facility] ([facility]) Encounter Details Date Type Department Care Team (Late st Contact Info) Description 01/13/2006 Historical Note [facility] Hairdressr System Devyn Vásquez MD [address] [place] [address] [phone] Social History Tobacco Use Types Packs/Day Years [...] LEATHA CARRILLO - [facility] [address] [facility] [address] [place] [phone] Brenda Clay MD [address] [facility] [address] [place] [address] 04/15/2026 10:00 AM EDT Office Visit [facility]HA [facility] at [facility] [address] [facility] [address] [place] [address] Sena Dominguez PA [address] [facility] [place] [address] documented as of this encounter Visit Diagnoses Not on filedocumented in this encounter Care Teams Turret Press Operator Relationship Specialty Start Date End Date Meme Steel MD [address] [place] [address] 105 [place] [address] PCP - General Pediatrics 06/05/18 04/25/22 No Pcp, Pcp PCP - General 06/08/22 07/19/22 Guadalupe Mcbride MD PCP - General Family Medicine 07/20/22 11/01/23 Sena Dominguez PA [address] [place] [address] [place] [address] PCP - BRADY Physician Pretzel Twisting Machine Operator 11/02/23 Levy Barry MD [address] [place] [address] [place] [address] PCP - General Family Medicine 12/20/23 documented as of this encounter
--- OUTSIDE RECORDS SUMMARY | 2025-08-08 14:36 | XMS_ITS | Encounter Summary ---
Author Organization [facility] work ([facility]) Address [address] [facility] [address] [place] [address] Care Team Providers Care Manufacturing Industrial Engineer Name Role Phone Meme Steel MD Primary Care Provider [phone] Pcp, Pcp Primary Care Provider Unavailabl Guadalupe Bardales MD Primary Care Provider [phone] Sena Dominguez Unavailable [phone] Levy Barry MD Primary Care Provider Unavailab le Source Comments The information that you have received may contain highly confidential and/or federally protected health information. This information has been disclosed to you from records protected by [facility]. The law prohibits you [...] contact the sender immediately.[facility] ([facility]) Encounter Details Date Type Department Care Team (Late st Contact Info) Description 02/08/2006 Historical Note [facility] LMN-1 System Devyn Vásquez MD [address] [place] [address] [phone] Social History Tobacco Use Types Packs/Day Years [...] LEATHA CARRILLO - [facility] [address] [facility] [address] [place] [phone] Brenda Caly MD [address] [facility] [address] [place] [address] 04/15/2026 10:00 AM EDT Office Visit [facility]HA [facility] at [facility] + [facility] [address] [facility] [address] [place] [address] Sena Dominguez PA [address] [facility] [place] [address] documented as of this encounter Visit Diagnoses Not on filedocumented in this encounter Care Teams Manufacturing Industrial Engineer Relationship Specialty Start Date End Date Meme Steel MD [address] [place] [address] 105 [place] [address] PCP - General Pediatrics 06/05/18 04/25/22 No Pcp, Pcp PCP - General 06/08/22 07/19/22 Guadalupe Mcbride MD PCP - General Family Medicine 07/20/22 11/01/23 Sena Dominguez PA [address] [place] [address] [place] [address] PCP - BRADY Physician Instrument Assembler 11/02/23 Levy Barry MD [address] [place] [address] [place] [address] PCP - General Family Medicine 12/20/23 documented as of this encounter
--- OUTSIDE RECORDS SUMMARY | 2025-08-08 14:36 | XMS_ITS | Encounter Summary ---
Author Organization [facility] work ([facility]) Address [address] [place] [address] Care Team Providers Care Nut Orchardist Name Role Phone Meme Steel MD Primary Care Provider [phone] Pcp, Pcp Primary Care Provider Unavailabl Guadalupe Bardales MD Primary Care Provider [phone] Sena Dominguez Unavailable [phone] Levy Brary MD Primary Care Provider Unavailab le Source Comments The information that you have received may contain highly confidential and/or federally protected health information. This information has been disclosed to you from records protected by [facility]. The law prohibits you from [...] sender immediately.[facility] ([facility]) Encounter Details Date Type Department Care Team (Late st Contact Info) Description 06/14/2007 Historical Note [facility] [employer] System Devyn Vásquez MD [address] [place] [address] [phone] Social History Tobacco Use Types Packs/Day Years [...] [facility] [address] [facility] [address] [place] [phone] Brenda Clay MD [address] [facility] [address] [place] [address] 04/15/2026 10:00 AM EDT Office Visit LEATHA Primary [facility] at [facility] [address] [facility] [address] [place] [address] Sena Dominguez PA [address] [facility] [place] [address] documented as of this encounter Visit Diagnoses Not on filedocumented in this encounter Care Teams Nut Orchardist Relationship Specialty Start Date End Date Meme Steel MD [address] [place] [address] 105 [place] [address] PCP - General Pediatrics 06/05/18 04/25/22 No Pcp, Pcp PCP - General 06/08/22 07/19/22 Guadalupe Mcbride MD PCP - General Family Medicine 07/20/22 11/01/23 Sena Dominguez PA [address] [place] [address] [place] [address] PCP - BRADY Physician Catholic Priest 11/02/23 Levy Barry MD [address] [place] [address] [place] [address] PCP - General Family Medicine 12/20/23 documented as of this encounter
--- OUTSIDE RECORDS SUMMARY | 2025-08-08 14:36 | XMS_ITS | Encounter Summary ---
Author Organization [facility] work ([facility]) Address [address] [facility] [address] [place] [address] Care Team Providers Care Extractions Technologist Name Role Phone Meme Steel MD Primary Care Provider [phone] Pcp, Pcp Primary Care Provider Unavailabl Guadalupe Bardales MD Primary Care Provider [phone] Sena Dominguez Unavailable [phone] Levy Barry MD Primary Care Provider Unavailab le Source Comments The information that you have received may contain highly confidential and/or federally protected health information. This information has been disclosed to you from records protected by [facility]. The law prohibits you [...] contact the sender immediately.[facility] ([facility]) Encounter Details Date Type Department Care Team (Late st Contact Info) Description 05/24/2012 Historical Note [facility] [employer] System Devyn Vásquez MD [address] [place] [address] [phone] Social History Tobacco Use Types Packs/Day Years [...] LEATHA CARRILLO - [facility] [address] [facility] [address] [place] [phone] Brenda Clay MD [address] [facility] [address] [place] [phone] 04/15/2026 10:00 AM EDT Office Visit LEATHA [facility] at [facility] + [facility] [address] [facility] [address] [place] [address] Sena Dominguez PA [address] [facility] [place] [address] documented as of this encounter Visit Diagnoses Not on filedocumented in this encounter Care Teams Extractions Technologist Relationship Specialty Start Date End Date Meme Steel MD [address] [place] [address] 105 [place] [address] PCP - General Pediatrics 06/05/18 04/25/22 No Pcp, Pcp PCP - General 06/08/22 07/19/22 Guadalupe Mcbride MD PCP - General Family Medicine 07/20/22 11/01/23 Sena Dominguez PA [address] [place] [address] [place] [address] PCP - BRADY Physician Sueding Machine Tender 11/02/23 Levy aBrry MD [address] [place] [address] [place] [address] PCP - General Family Medicine 12/20/23 documented as of this encounter
--- OUTSIDE RECORDS SUMMARY | 2025-08-08 14:36 | XMS_ITS | Encounter Summary ---
Author Organization [facility] work ([facility]) Address [address] [facility] [address] [place] [address] Care Team Providers Care Combat Systems Engineer Name Role Phone Meme Steel MD Primary Care Provider [phone] Pcp, Pcp Primary Care Provider Unavailabl Guadalupe Bardales MD Primary Care Provider [phone] Sena Dominguez Unavailable [phone] Levy Barry MD Primary Care Provider Unavailab le Source Comments The information that you have received may contain highly confidential and/or federally protected health information. This information has been disclosed to you from records protected by [facility]. The law prohibits [...] contact the sender immediately.[facility] ([facility]) Encounter Details Date Type Department Care Team (Late st Contact Info) Description 01/23/2006 Historical Note [facility] [employer] System Devyn Vásquez MD [address] [place] [address] [phone] Social History Tobacco Use Types Packs/Day Years [...] LEATHA CARRILLO - [facility] [address] [facility] [address] [place] [phone] Brenda Clay MD [address] [facility] [address] [place] [address] 04/15/2026 10:00 AM EDT Office Visit LE[facility]HA [facility] at [facility] + [facility] [address] [facility] [address] [place] [address] eSna Dominguez PA [address] [facility] [place] [address] documented as of this encounter Visit Diagnoses Not on filedocumented in this encounter Care Teams Combat Systems Engineer Relationship Specialty Start Date End Date Meme Steel MD [address] [place] [address] 105 [place] [address] PCP - General Pediatrics 06/05/18 04/25/22 No Pcp, Pcp PCP - General 06/08/22 07/19/22 Guadalupe Mcbride MD PCP - General Family Medicine 07/20/22 11/01/23 Sena Dominguez PA [address] [place] [address] [place] [address] PCP - BRADY Physician Powder Guard 11/02/23 Levy Barry MD [address] [place] [address] [place] [address] PCP - General Family Medicine 12/20/23 documented as of this encounter
--- OUTSIDE RECORDS SUMMARY | 2025-08-08 14:36 | XMS_ITS | Encounter Summary ---
Author Organization [facility] work ([facility]) Address [address] [facility] [address] [place] [address] Care Team Providers Care Mechanical Design Engineer Products Name Role Phone Meme Steel MD Primary Care Provider [phone] Pcp, Pcp Primary Care Provider Unavailabl Guadalupe Bardales MD Primary Care Provider [phone] Sena Dominguez Unavailable [phone] Levy Barry MD Primary Care Provider Unavailab le Source Comments The information that you have received may contain highly confidential and/or federally protected health information. This information has been disclosed to you from records protected by [email or web address]. The law prohibits you from [...] immediately.[facility] ([facility]) Encounter Details Date Type Department Care Team (Late st Contact Info) Description 01/24/2006 Historical Note [facility] [employer] System Devyn Vásquez MD [address] [place] [address] [phone] Social History Tobacco Use Types Packs/Day Years [...] LEATHA CARRILLO - [facility] [address] [facility] [address] [place] [phone] Brenda Clay MD [address] [facility] [address] [place] [address] 04/15/2026 10:00 AM EDT Office Visit LEATHA [facility] + [facility] [address] [facility] [address] [place] [address] Sena Dominguez PA [address] [facility] [place] [address] documented as of this encounter Visit Diagnoses Not on filedocumented in this encounter Care Teams Mechanical Design Engineer Products Relationship Specialty Start Date End Date Meme Steel MD [address] [place] [address] 105 [place] [address] PCP - General Pediatrics 06/05/18 04/25/22 No Pcp, Pcp PCP - General 06/08/22 07/19/22 Guadalupe Mcbride MD PCP - General Family Medicine 07/20/22 11/01/23 Sena Dominguez PA [address] [place] [address] [place] [address] PCP - BRADY Physician Clinical Specialist Medical Device 11/02/23 Levy Barry MD [address] [place] [address] [place] [address] PCP - General Family Medicine 12/20/23 documented as of this encounter
--- OUTSIDE RECORDS SUMMARY | 2025-08-08 14:36 | XMS_ITS | Encounter Summary ---
Author Organization [facility] work ([facility]) Address [address] [facility] [address] [place] [address] Care Team Providers Care Senior Stock Plan Administrator Name Role Phone Meme Steel MD Primary Care Provider [phone] Pcp, Pcp Primary Care Provider Unavailabl Guadalupe Bardales MD Primary Care Provider [phone] Sena Dominguez Unavailable [phone] Levy Barry MD Primary Care Provider Unavailab le Source Comments The information that you have received may contain highly confidential and/or federally protected health information. This information has been disclosed to you from records protected by [facility]. The law prohibits you from [...] sender immediately.[facility] ([facility]) Encounter Details Date Type Department Care Team (Late st Contact Info) Description 05/21/2012 Historical Note [facility] [employer] [facility] Devyn Vásquez MD [address] [place] [address] [phone] Social History Tobacco Use Types Packs/Day Years [...] LEATHA CARRILLO - [facility] [address] [facility] [address] [place] [phone] Brenda Clay MD [address] [facility] [address] [place] [address] 04/15/2026 10:00 AM EDT Office Visit [facility]HA [facility] at [facility] [address] [facility] [address] [place] [address] Sena Dominguez PA [address] [facility] [place] [address] documented as of this encounter Visit Diagnoses Not on filedocumented in this encounter Care Teams Senior Stock Plan Administrator Relationship Specialty Start Date End Date Meme Steel MD [address] [place] [address] 105 [place] [address] PCP - General Pediatrics 06/05/18 04/25/22 No Pcp, Pcp PCP - General 06/08/22 07/19/22 Guadalupe Mcbride MD PCP - General Family Medicine 07/20/22 11/01/23 Sena Dominguez PA [address] [place] [address] [place] [address] PCP - BRADY Physician Senior Loan Processor 11/02/23 Levy Barry MD [address] [place] [address] [place] [address] PCP - General Family Medicine 12/20/23 documented as of this encounter
--- OUTSIDE RECORDS SUMMARY | 2025-08-08 14:36 | XMS_ITS | Encounter Summary ---
Author Organization [facility] work ([facility]) Address [address] [facility] [address] [place] [address] Care Team Providers Care Brick Or Block Maker Name Role Phone Meme Steel MD Primary Care Provider [phone] Pcp, Pcp Primary Care Provider Unavailabl Guadalupe Bardales MD Primary Care Provider [phone] Sena Dominguez Unavailable [phone] Levy Barry MD Primary Care Provider Unavailab le Source Comments The information that you have received may contain highly confidential and/or federally protected health information. This information has been disclosed to you from records protected by [facility]. The law prohibits you [...] the sender immediately.[facility] ([facility]) Encounter Details Date Type Department Care Team (Late st Contact Info) Description 01/13/2006 Historical Note [facility] [employer] System Devyn Vásquez MD [address] [place] [address] [phone] Social History Tobacco Use Types Packs/Day Years [...] LEATHA CARRILLO - [facility] [address] [facility] [address] [place] [phone] Brenda Clay MD [address] [facility] [address] [place] [address] 04/15/2026 10:00 AM EDT Office Visit LE[facility]HA [facility] at [facility] [address] [facility] [address] [place] [address] Sena Dominguez PA [address] [facility] [place] [address] documented as of this encounter Visit Diagnoses Not on filedocumented in this encounter Care Teams Brick Or Block Maker Relationship Specialty Start Date End Date Meme Steel MD [address] [place] [address] 105 [place] [address] PCP - General Pediatrics 06/05/18 04/25/22 No Pcp, Pcp PCP - General 06/08/22 07/19/22 Guadalupe Mcbride MD PCP - General Family Medicine 07/20/22 11/01/23 Sena Dominguez PA [address] [place] [address] [place] [address] PCP - BRADY Physician Wood Type Cutter 11/02/23 Levy Barry MD [address] [place] [address] [place] [address] PCP - General Family Medicine 12/20/23 documented as of this encounter
--- OUTSIDE RECORDS SUMMARY | 2025-08-08 14:36 | XMS_ITS | Encounter Summary ---
Author Organization [facility] work ([facility]) Address [address] [place] [address] Care Team Providers Care Life Guard Name Role Phone Meme Steel MD Primary Care Provider [phone] Pcp, Pcp Primary Care Provider Unavailabl Guadalupe Bardales MD Primary Care Provider [phone] Sena Dominguez Unavailable [phone] Levy Barry MD Primary Care Provider Unavailab le Source Comments The information that you have received may contain highly confidential and/or federally protected health information. This information has been disclosed to you from records protected by [facility]. The law prohibits you [...] the sender immediately.[facility] ([facility]) Encounter Details Date Type Department Care Team (Late st Contact Info) Description 02/09/2006 Historical Note [facility] [employer] System Devyn Vásquez MD [address] [place] [address] [phone] Social History Tobacco Use Types Packs/Day Years [...] CARRILLO - [facility] [address] [facility] [address] [place] [phone] Brenda Clay MD [address] [facility] [address] [place] [address] 04/15/2026 10:00 AM EDT Office Visit [facility]HA [facility] + [facility] [address] [facility] [address] [place] [address] Sena Dominguez PA [address] [facility] [place] [address] documented as of this encounter Visit Diagnoses Not on filedocumented in this encounter Care Teams Life Guard Relationship Specialty Start Date End Date Meme Steel MD [address] [place] [address] 105 [place] [address] PCP - General Pediatrics 06/05/18 04/25/22 No Pcp, Pcp PCP - General 06/08/22 07/19/22 Guadalupe Mcbride MD PCP - General Family Medicine 07/20/22 11/01/23 Sena Dominguez PA [address] [place] [address] [place] [address] PCP - BRADY Physician Commercial Cleaner 11/02/23 Levy Barry MD [address] [place] [address] [place] [address] PCP - General Family Medicine 12/20/23 documented as of this encounter
--- OUTSIDE RECORDS SUMMARY | 2025-08-08 14:36 | XMS_ITS | Encounter Summary ---
Author Organization [facility] work ([facility]) Address [address] [place] [address] Care Team Providers Care Equalizer Operator Name Role Phone Meme Steel MD Primary Care Provider [phone] Pcp, Pcp Primary Care Provider Unavailabl Guadalupe Bardales MD Primary Care Provider [phone] Sena Dominguez Unavailable [phone] Levy Barry MD Primary Care Provider Unavailab le Source Comments The information that you have received may contain highly confidential and/or federally protected health information. This information has been disclosed to you from records protected by [facility]. The law prohibits [...] please contact the sender immediately.[facility] ([facility]) Encounter Details Date Type Department Care Team (Late st Contact Info) Description 09/10/2012 Historical Note [facility] [employer] System Devyn Vásquez MD [address] [place] [address] [phone] Social History Tobacco Use Types Packs/Day Years [...] [facility] [address] [facility] [address] [place] [phone] Brenda Clay MD [address] [facility] [address] [place] [address] 04/15/2026 10:00 AM EDT Office Visit LEATHA [facility] at [facility] + [facility] [address] [facility] [address] [place] [address] Sena Dominguez PA [address] [facility] [place] [address] documented as of this encounter Visit Diagnoses Not on filedocumented in this encounter Care Teams Equalizer Operator Relationship Specialty Start Date End Date Meme Steel MD [address] [place] [address] 105 [place] [address] PCP - General Pediatrics 06/05/18 04/25/22 No Pcp, Pcp PCP - General 06/08/22 07/19/22 Guadalupe Mcbride MD PCP - General Family Medicine 07/20/22 11/01/23 Sena Dominguez PA [address] [place] [address] [place] [address] PCP - BRADY Physician Java Sybase Developer 11/02/23 Levy Barry MD [address] [place] [address] [place] [address] PCP - General Family Medicine 12/20/23 documented as of this encounter
--- OUTSIDE RECORDS SUMMARY | 2025-08-08 14:36 | XMS_ITS | Encounter Summary ---
Author Organization [facility] work ([facility]) Address [address] [place] [address] Care Team Providers Care Retail Presentation Specialist Name Role Phone Meme Steel MD Primary Care Provider [phone] Pcp, Pcp Primary Care Provider Unavailabl Guadalupe Bardales MD Primary Care Provider [phone] Sena Dominguez Unavailable [phone] Levy Barry MD Primary Care Provider Unavailab le Source Comments The information that you have received may contain highly confidential and/or federally protected health information. This information has been disclosed to you from records protected by [facility]. The law prohibits you [...] the sender immediately.[facility] ([facility]) Encounter Details Date Type Department Care Team (Late st Contact Info) Description 01/23/2006 Historical Note [facility] [employer] System Devyn Vásquez MD [address] [place] [address] [phone] Social History Tobacco Use Types Packs/Day Years [...] Office Visit LEATHA CARRILLO - [facility] [address] [facility] [address] [place] [phone] Brenda Clay MD [address] [facility] [address] [place] [phone] 04/15/2026 10:00 AM EDT Office Visit LEATHA [facility] at [facility] + [facility] [address] [facility] [address] [place] [address] Sena Dominguez PA [address] [facility] [place] [address] documented as of this encounter Visit Diagnoses Not on filedocumented in this encounter Care Teams Retail Presentation Specialist Relationship Specialty Start Date End Date Meme Steel MD [address] [place] [address] 105 [place] [address] PCP - General Pediatrics 06/05/18 04/25/22 No Pcp, Pcp PCP - General 06/08/22 07/19/22 Guadalupe Mcbride MD PCP - General Family Medicine 07/20/22 11/01/23 Sena Dominguez PA [address] [place] [address] [place] [address] PCP - BRADY Physician Cane Packer 11/02/23 Levy Barry MD [address] [place] [address] [place] [address] PCP - General Family Medicine 12/20/23 documented as of this encounter
--- OUTSIDE RECORDS SUMMARY | 2025-08-08 14:36 | XMS_ITS | Encounter Summary ---
Author Organization [facility] work ([facility]) Address [address] [place] [address] Care Team Providers Care Land Measurer Name Role Phone Meme Steel MD Primary Care Provider [phone] Pcp, Pcp Primary Care Provider Unavailabl Guadalupe Bardales MD Primary Care Provider [phone] Sena Dominguez Unavailable [phone] Levy Barry MD Primary Care Provider Unavailab le Source Comments The information that you have received may contain highly confidential and/or federally protected health information. This information has been disclosed to you from records protected by [facility]. The law prohibits you [...] Contact Info) Description 05/24/2012 Historical Note [facility] [employer] System Devyn Vásquez MD [address] [place] [address] [phone] Social History Tobacco Use Types Packs/Day Years [...] LEATHA CARRILLO - [facility] [address] [facility] [address] [place] [phone] Brenda Clay MD [address] [facility] [address] [place] [address] 04/15/2026 10:00 AM EDT Office Visit LEATHA [facility] at [facility] + [facility] [address] [facility] [address] [place] [address] Sena Dominguez PA [address] [facility] [place] [address] documented as of this encounter Visit Diagnoses Not on filedocumented in this encounter Care Teams Land Measurer Relationship Specialty Start Date End Date Meme Steel MD [address] [place] [address] 105 [place] [address] PCP - General Pediatrics 06/05/18 04/25/22 No Pcp, Pcp PCP - General 06/08/22 07/19/22 Guadalupe Mcbride MD PCP - General Family Medicine 07/20/22 11/01/23 Sena Dominguez PA [address] [place] [address] [place] [address] PCP - BRADY Physician Technology Intern 11/02/23 Levy Barry MD [address] [place] [address] [place] [address] PCP - General Family Medicine 12/20/23 documented as of this encounter
--- OUTSIDE RECORDS SUMMARY | 2025-08-08 14:36 | XMS_ITS | Encounter Summary ---
Author Organization [facility] work ([facility]) Address [address] [place] [address] Care Team Providers Care Commutator Inspector Name Role Phone Meme Steel MD Primary Care Provider [phone] Pcp, Pcp Primary Care Provider Unavailabl Guadalupe Bardales MD Primary Care Provider [phone] Sena Dominguez Unavailable [phone] Levy Barry MD Primary Care Provider Unavailab le Source Comments The information that you have received may contain highly confidential and/or federally protected health information. This information has been disclosed to you from records protected by [facility]. The law prohibits you from [...] sender immediately.[facility] ([facility]) Encounter Details Date Type Department Care Team (Late st Contact Info) Description 2004 Historical Note [facility] [employer] System Devyn Vásquez MD [address] [place] [address] [phone] Social History Tobacco Use Types Packs/Day Years [...] CARRILLO - [facility] [address] [facility] [address] [place] [phone] Brenda Clay MD [address] [facility] [address] [place] [phone] 04/15/2026 10:00 AM EDT Office Visit LEATHA [facility] at [facility] + [facility] [address] [facility] [address] [place] [address] Sena Dominguez PA [address] [facility] [place] [address] documented as of this encounter Visit Diagnoses Not on filedocumented in this encounter Care Teams Commutator Inspector Relationship Specialty Start Date End Date Meme Steel MD [address] [place] [address] 105 [place] [address] PCP - General Pediatrics 06/05/18 04/25/22 No Pcp, Pcp PCP - General 06/08/22 07/19/22 Guadalupe Mcbride MD PCP - General Family Medicine 07/20/22 11/01/23 Sena Dominguez PA [address] [place] [address] [place] [address] PCP - BRADY Physician Hand Cutter Apprentice 11/02/23 Levy Barry MD [address] [place] [address] [place] [address] PCP - General Family Medicine 12/20/23 documented as of this encounter
--- OUTSIDE RECORDS SUMMARY | 2025-08-08 14:36 | XMS_ITS | Encounter Summary ---
Author Organization [facility] work ([facility]) Address [address] [place] [address] Care Team Providers Care Ultrasound Technologist Name Role Phone Meme Steel MD Primary Care Provider [phone] Pcp, Pcp Primary Care Provider Unavailabl Guadalupe Bardales MD Primary Care Provider [phone] Sena Dominguez Unavailable [phone] Levy Barry MD Primary Care Provider Unavailab le Source Comments The information that you have received may contain highly confidential and/or federally protected health information. This information has been disclosed to you from records protected by [facility]. The law prohibits you [...] contact the sender immediately.[facility] ([facility]) Encounter Details Date Type Department Care Team (Late st Contact Info) Description 02/09/2006 Historical Note [facility] [employer] System Devyn Vásquez MD [address] [place] [address] [phone] Social History Tobacco Use Types Packs/Day Years [...] Visit LEATHA CARRILLO - [facility] [address] [facility] [address] [place] [phone] Brenda Clay MD [address] [facility] [address] [place] [address] 04/15/2026 10:00 AM EDT Office Visit LEATHA [facility] at [facility] [address] [facility] [address] [place] [address] Sena Dominguez PA [address] [facility] [place] [address] documented as of this encounter Visit Diagnoses Not on filedocumented in this encounter Care Teams Ultrasound Technologist Relationship Specialty Start Date End Date Meme Steel MD [address] [place] [address] 105 [place] [address] PCP - General Pediatrics 06/05/18 04/25/22 No Pcp, Pcp PCP - General 06/08/22 07/19/22 Guadalupe Mcbride MD PCP - General Family Medicine 07/20/22 11/01/23 Sena Dominguez PA [address] [place] [address] [place] [address] PCP - BRADY Physician Music Researcher 11/02/23 Levy Barry MD [address] [place] [address] [place] [address] PCP - General Family Medicine 12/20/23 documented as of this encounter
--- OUTSIDE RECORDS SUMMARY | 2025-08-08 14:36 | XMS_ITS | Encounter Summary ---
Author Organization [facility] work ([facility]) Address [address] [place] [address] Care Team Providers Care Studio Camera Operator Name Role Phone Meme Steel MD Primary Care Provider [phone] No Pcp, Pcp Primary Care Provider Unavailabl Guadalupe Bardales MD Primary Care Provider [phone] Sena Dominguez Unavailable Levy Barry MD Primary Care Provider Unavailab le Source Comments The information that you have received may contain highly confidential and/or federally protected health information. This information has been disclosed to you from records protected by [facility]. The law prohibits you from [...] the sender immediately.[facility] ([facility]) Encounter Details Date Type Department Care Team (Late st Contact Info) Description 05/21/2012 Historical Note [facility] sfilatino System Devyn Vásquez MD [address] [place] [address] [phone] Social History Tobacco Use Types Packs/Day Years [...] [facility] [address] [facility] [address] [place] [phone] Brenda Clay MD [address] [facility] [address] [place] [address] 04/15/2026 10:00 AM EDT Office Visit LEATHA [facility] at [facility] [address] [facility] [address] [place] [address] Sena Dominguez PA [address] [facility] [place] [address] documented as of this encounter Visit Diagnoses Not on filedocumented in this encounter Care Teams Studio Camera Operator Relationship Specialty Start Date End Date Meme Steel MD [address] [place] [address] 105 [place] [address] PCP - General Pediatrics 06/05/18 04/25/22 No Pcp, Pcp PCP - General 06/08/22 07/19/22 Guadalupe Mcbride MD PCP - General Family Medicine 07/20/22 11/01/23 Sena Dominguez PA [address] [place] [address] [place] [address] PCP - BRADY Physician Chummer 11/02/23 Levy Barry MD [address] [place] [address] [place] [address] PCP - General Family Medicine 12/20/23 documented as of this encounter
--- OUTSIDE RECORDS SUMMARY | 2025-08-08 14:36 | XMS_ITS | Encounter Summary ---
Author Organization [facility] work ([facility]) Address [address] [place] [address] Care Team Providers Care Lead Burner Name Role Phone Meme Steel MD Primary Care Provider [phone] Pcp, Pcp Primary Care Provider Unavailabl Guadalupe Bardales MD Primary Care Provider [phone] Sena Dominguez Unavailable [phone] Levy Barry MD Primary Care Provider Unavailab le Source Comments The information that you have received may contain highly confidential and/or federally protected health information. This information has been disclosed to you from records protected by [facility]. The law prohibits you from [...] please contact the sender immediately.[facility] ([facility]) Encounter Details Date Type Department Care Team (Late st Contact Info) Description 02/08/2006 Historical Note [facility] Drug Response Dx System Devyn Vásquez MD [address] [place] [address] [phone] Social History Tobacco Use Types Packs/Day Years [...] Office Visit LEATHA CARRILLO - [facility] [address] [facility] [address] [place] [phone] Brenda Clay MD [address] [facility] [address] [place] [phone] 04/15/2026 10:00 AM EDT Office Visit LEATHA [facility] + [facility] [address] [facility] [address] [place] [phone] Sena Dominguez PA [address] [facility] [place] [address] documented as of this encounter Visit Diagnoses Not on filedocumented in this encounter Care Teams Lead Burner Relationship Specialty Start Date End Date Meme Steel MD [address] [place] [address] 105 [place] [address] PCP - General Pediatrics 06/05/18 04/25/22 No Pcp, Pcp PCP - General 06/08/22 07/19/22 Guadalupe Mcbride MD PCP - General Family Medicine 07/20/22 11/01/23 Sena Dominguez PA [address] [place] [address] [place] [address] PCP - BRADY Physician Director Of Safety And Security 11/02/23 Levy Barry MD [address] [place] [address] [place] [address] PCP - General Family Medicine 12/20/23 documented as of this encounter
--- OUTSIDE RECORDS SUMMARY | 2025-08-08 14:36 | XMS_ITS | Encounter Summary ---
Author Organization [facility] work ([facility]) Address [address] [facility] [address] [facility] [address] [address] [place] [address] Care Team Providers Care Global Commodity Manager Name Role Phone Meme Steel MD Primary Care Provider [phone] Pcp, Pcp Primary Care Provider Unavailabl Guadalupe Bardales MD Primary Care Provider [phone] Sena Dominguez Unavailable [phone] Levy Barry MD Primary Care Provider Unavailab le Source Comments The information that you have received may contain highly confidential and/or federally protected health information. This information has been disclosed to you from records protected by [facility]. The law prohibits you [...] Contact Info) Description 01/23/2006 Historical Note [facility] Fleck System Devyn Vásquez MD [address] [place] [address] [phone] Social History Tobacco Use Types Packs/Day Years [...] LEATHA CARRILLO - [facility] [address] [facility] [address] [place] [phone] Brenda Clay MD [address] [facility] [address] [place] [phone] 04/15/2026 10:00 AM EDT Office Visit LE[facility]HA [facility] at [facility] + [facility] [address] [facility] [address] [place] [address] Sena Dominguez PA [address] [facility] [place] [address] documented as of this encounter Visit Diagnoses Not on filedocumented in this encounter Care Teams Global Commodity Manager Relationship Specialty Start Date End Date Meme Steel MD [address] [place] [address] 105 [place] [address] PCP - General Pediatrics 06/05/18 04/25/22 No Pcp, Pcp PCP - General 06/08/22 07/19/22 Guadalupe Mcbride MD PCP - General Family Medicine 07/20/22 11/01/23 Sena Dominguez PA [address] [place] [address] [place] [address] PCP - BRADY Physician Supervisor Forming And Tempering 11/02/23 Levy Barry MD [address] [place] [address] [place] [address] PCP - General Family Medicine 12/20/23 documented as of this encounter
--- OUTSIDE RECORDS SUMMARY | 2025-08-08 14:36 | XMS_ITS | Encounter Summary ---
Author Organization [facility] work ([facility]) Address [address] [place] [address] Care Team Providers Care Dye Box Operator Name Role Phone Meme Steel MD Primary Care Provider [phone] No Pcp, Pcp Primary Care Provider Unavailabl Guadalupe Bardales MD Primary Care Provider [phone] Sena Dominguez Unavailable [phone] Levy Barry MD Primary Care Provider Unavailab le Source Comments The information that you have received may contain highly confidential and/or federally protected health information. This information has been disclosed to you from records protected by [facility]. The law prohibits you from [...] contact the sender immediately.[facility] ([facility]) Encounter Details Date Type Department Care Team (Late st Contact Info) Description 09/10/2012 Historical Note [facility] [email or web address] System Devyn Vásquez MD [address] [place] [address] [phone] Social History Tobacco Use Types Packs/Day Years [...] Office Visit LEATHA CARRILLO - [facility] [address] [facility] [address] [place] [phone] Brenda Clay MD [address] [facility] [address] [place] [phone] 04/15/2026 10:00 AM EDT Office Visit LEATHA [facility] + [facility] [address] [facility] [address] [place] [address] Sena Dominguez PA [address] [facility] [place] [address] documented as of this encounter Visit Diagnoses Not on filedocumented in this encounter Care Teams Dye Box Operator Relationship Specialty Start Date End Date Meme Steel MD [address] [place] [address] 105 [place] [address] PCP - General Pediatrics 06/05/18 04/25/22 No Pcp, Pcp PCP - General 06/08/22 07/19/22 Guadalupe Mcbride MD PCP - General Family Medicine 07/20/22 11/01/23 Sena Dominguez PA [address] [place] [address] [place] [address] PCP - BRADY Physician Reception Clerk 11/02/23 Levy Barry MD [address] [place] [address] [place] [address] PCP - General Family Medicine 12/20/23 documented as of this encounter
--- OUTSIDE RECORDS SUMMARY | 2025-08-08 14:36 | XMS_ITS | Encounter Summary ---
Author Organization [facility] work ([facility]) Address [address] [place] [address] Care Team Providers Care Quill Cleaning Machine Operator Name Role Phone Meme Steel MD Primary Care Provider [phone] Pcp, Pcp Primary Care Provider Unavailabl Guadalupe Bardales MD Primary Care Provider [phone] Sena Dominguez Unavailable [phone] Levy Barry MD Primary Care Provider Unavailab le Source Comments The information that you have received may contain highly confidential and/or federally protected health information. This information has been disclosed to you from records protected by [facility]. The law prohibits you [...] please contact the sender immediately.[facility] ([facility]) Encounter Details Date Type Department Care Team (Late st Contact Info) Description 05/22/2012 Historical Note [facility] EduKart System Devyn Vásquez MD [address] [place] [address] [phone] Social History Tobacco Use Types Packs/Day Years [...] CARRILLO - [facility] at [facility] [address] [facility] [address] [place] [phone] Brenda Clay MD [address] [facility] [address] [place] [address] 04/15/2026 10:00 AM EDT Office Visit [facility]HA [facility] + [facility] [address] [place] [address] Sena Dominguez PA [address] [facility] [place] [address] documented as of this encounter Visit Diagnoses Not on filedocumented in this encounter Care Teams Quill Cleaning Machine Operator Relationship Specialty Start Date End Date Meme Steel MD [address] [place] [address] 105 [place] [address] PCP - General Pediatrics 06/05/18 04/25/22 No Pcp, Pcp PCP - General 06/08/22 07/19/22 Guadalupe Mcbride MD PCP - General Family Medicine 07/20/22 11/01/23 Sena Dominguez PA [address] [place] [address] [place] [address] PCP - BRADY Physician Cigar Bander 11/02/23 Levy Barry MD [address] [place] [address] [place] [address] PCP - General Family Medicine 12/20/23 documented as of this encounter
--- OUTSIDE RECORDS SUMMARY | 2025-08-08 14:36 | XMS_ITS | Encounter Summary ---
Author Organization [facility] work ([facility]) Address [address] [place] [address] Care Team Providers Care Welder/Fitter Name Role Phone Meme Steel MD Primary Care Provider [phone] Pcp, Pcp Primary Care Provider Unavailabl Guadalupe Bardales MD Primary Care Provider [phone] Sena Dominguez Unavailable [phone] Levy Barry MD Primary Care Provider Unavailab le Source Comments The information that you have received may contain highly confidential and/or federally protected health information. This information has been disclosed to you from records protected by [facility]. The law prohibits you from [...] error, please contact the sender immediately.[facility] ([facility]) Encounter Details Date Type Department Care Team (Late st Contact Info) Description 2004 Historical Note [facility] Re2you System Devyn Vásquez MD [address] [place] [address] [phone] Social History Tobacco Use Types Packs/Day Years [...] CARRILLO - [facility] [address] [facility] [address] [place] [phone] Brenda Clay MD [address] [facility] [address] [place] [address] 04/15/2026 10:00 AM EDT Office Visit [facility] at [facility] + [facility] [address] [facility] [address] [place] [address] Sena Dominguez PA [address] [facility] [place] [address] documented as of this encounter Visit Diagnoses Not on filedocumented in this encounter Care Teams Welder/Fitter Relationship Specialty Start Date End Date Meme Steel MD [address] [place] [address] 105 [place] [address] PCP - General Pediatrics 06/05/18 04/25/22 No Pcp, Pcp PCP - General 06/08/22 07/19/22 Guadalupe Mcbride MD PCP - General Family Medicine 07/20/22 11/01/23 Sena Dominguez PA [address] [place] [address] [place] [address] PCP - BRADY Physician Energy Trader 11/02/23 Levy Barry MD [address] [place] [address] [place] [address] PCP - General Family Medicine 12/20/23 documented as of this encounter
--- OUTSIDE RECORDS SUMMARY | 2025-08-08 14:36 | XMS_ITS | Encounter Summary ---
Author Organization [facility] work ([facility]) Address [address] [place] [address] Care Team Providers Care Nursing Home Manager Name Role Phone Meme Steel MD Primary Care Provider [phone] Pcp, Pcp Primary Care Provider Unavailabl Guadalupe Bardales MD Primary Care Provider [phone] Sena Dominguez Unavailable [phone] Levy Barry MD Primary Care Provider Unavailab le Source Comments The information that you have received may contain highly confidential and/or federally protected health information. This information has been disclosed to you from records protected by [facility]. The law prohibits you from making [...] sender immediately.[facility] ([facility]) Encounter Details Date Type Department Care Team (Late st Contact Info) Description 09/10/2012 Historical Note [facility] Cyrba System Devyn Vásquez MD [address] [place] [address] [phone] Social History Tobacco Use Types Packs/Day Years [...] Visit LEATHA CARRILLO - [facility] at [facility] [address] [facility] [address] [place] [phone] Brenda Clay MD [address] [facility] [address] [place] [address] 04/15/2026 10:00 AM EDT Office Visit [facility] at [facility] + [facility] [address] [facility] [address] [place] [address] Sena Dominguez PA [address] [facility] [place] [address] documented as of this encounter Visit Diagnoses Not on filedocumented in this encounter Care Teams Nursing Home Manager Relationship Specialty Start Date End Date Meme Steel MD [address] [place] [address] 105 [place] [address] PCP - General Pediatrics 06/05/18 04/25/22 No Pcp, Pcp PCP - General 06/08/22 07/19/22 Guadalupe Mcbride MD PCP - General Family Medicine 07/20/22 11/01/23 Sena Dominguez PA [address] [place] [address] [place] [address] PCP - BRADY Physician Antenna Design Engineer 11/02/23 Levy Barry MD [address] [place] [address] [place] [address] PCP - General Family Medicine 12/20/23 documented as of this encounter
--- OUTSIDE RECORDS SUMMARY | 2025-08-08 14:36 | XMS_ITS | Encounter Summary ---
Author Organization [facility] work ([facility]) Address [address] [place] [address] Care Team Providers Care Ironworker Apprentice Name Role Phone Meme Steel MD Primary Care Provider [phone] No Pcp, Pcp Primary Care Provider Unavailabl Guadalupe Bardales MD Primary Care Provider [phone] Sena Dominguez Unavailable [phone] Levy Barry MD Primary Care Provider Unavailab le Source Comments The information that you have received may contain highly confidential and/or federally protected health information. This information has been disclosed to you from records protected by [facility]. The law prohibits you from [...] please contact the sender immediately.[facility] ([facility]) Encounter Details Date Type Department Care Team (Late st Contact Info) Description 06/19/2007 Historical Note [facility] Aceable System Devyn Vásquez MD [address] [place] [address] [phone] Social History Tobacco Use Types Packs/Day Years [...] Visit LEATHA CARRILLO - [facility] [address] [facility] [address] [place] [phone] Brenda Clay MD [address] [facility] [address] [place] [address] 04/15/2026 10:00 AM EDT Office Visit [facility] at [facility] + [facility] [address] [facility] [address] [place] [address] Sena Dominguez PA [address] [facility] [place] [address] documented as of this encounter Visit Diagnoses Not on filedocumented in this encounter Care Teams Ironworker Apprentice Relationship Specialty Start Date End Date Meme Steel MD [address] [place] [address] 105 [place] [address] PCP - General Pediatrics 06/05/18 04/25/22 No Pcp, Pcp PCP - General 06/08/22 07/19/22 Guadalupe Mcbride MD PCP - General Family Medicine 07/20/22 11/01/23 Sena Dominguez PA [address] [place] [address] [place] [address] PCP - BRADY Physician Foxing Painter 11/02/23 Levy Barry MD [address] [place] [address] [place] [address] PCP - General Family Medicine 12/20/23 documented as of this encounter
--- OUTSIDE RECORDS SUMMARY | 2025-08-08 14:36 | XMS_ITS | Encounter Summary ---
Author Organization [facility] work ([facility]) Address [address] [place] [address] Care Team Providers Care Granite Installer Name Role Phone Meme Steel MD Primary Care Provider [phone] Pcp, Pcp Primary Care Provider Unavailabl Guadalupe Bardales MD Primary Care Provider [phone] Sena Dominguez Unavailable [phone] Levy Barry MD Primary Care Provider Unavailab le Source Comments The information that you have received may contain highly confidential and/or federally protected health information. This information has been disclosed to you from records protected by [facility]. The law prohibits you [...] contact the sender immediately.[facility] ([facility]) Encounter Details Date Type Department Care Team (Late st Contact Info) Description 01/26/2006 Historical Note [facility] Knotice System Devyn Vásquez MD [address] [place] [address] [phone] Social History Tobacco Use Types Packs/Day Years [...] CARRILLO - [facility] [address] [facility] [address] [place] [phone] Brenda Clay MD [address] [facility] [address] [place] [address] 04/15/2026 10:00 AM EDT Office Visit LEATHA Primary [facility] at [facility] + [facility] [address] [facility] [address] [place] [address] Sena Dominguez PA [address] [facility] [place] [address] documented as of this encounter Visit Diagnoses Not on filedocumented in this encounter Care Teams Granite Installer Relationship Specialty Start Date End Date Meme Steel MD [address] [place] [address] 105 [place] [address] PCP - General Pediatrics 06/05/18 04/25/22 No Pcp, Pcp PCP - General 06/08/22 07/19/22 Guadalupe Mcbride MD PCP - General Family Medicine 07/20/22 11/01/23 Sena Dominguez PA [address] [place] [address] [place] [address] PCP - BRADY Physician Litigation Services Manager 11/02/23 Levy Barry MD [address] [place] [address] [place] [address] PCP - General Family Medicine 12/20/23 documented as of this encounter
--- OUTSIDE RECORDS SUMMARY | 2025-08-08 14:36 | XMS_ITS | Encounter Summary ---
Author Organization [facility] work ([facility]) Address [address] [place] [address] Care Team Providers Care Raw Mill Operator Name Role Phone Meme Steel MD Primary Care Provider [phone] No Pcp, Pcp Primary Care Provider Unavailabl Guadalupe Bardales MD Primary Care Provider [phone] Sena Dominguez Unavailable [phone] Levy Barry MD Primary Care Provider Unavailab le Source Comments The information that you have received may contain highly confidential and/or federally protected health information. This information has been disclosed to you from records protected by [facility]. The law prohibits you from [...] please contact the sender immediately.[facility] ([facility]) Encounter Details Date Type Department Care Team (Late st Contact Info) Description 05/22/2012 Historical Note [facility] Pharmalink System Devyn Vásquez MD [address] [place] [address] [phone] Social History Tobacco Use Types Packs/Day Years [...] LEATHA CARRILLO - [facility] [address] [facility] [address] [place] [phone] Brenda Clay MD [address] [facility] [address] [place] [address] 04/15/2026 10:00 AM EDT Office Visit [facility]HA [facility] at [facility] + [facility] [address] [facility] [address] [place] [address] Sena Dominguez PA [address] [facility] [place] [address] documented as of this encounter Visit Diagnoses Not on filedocumented in this encounter Care Teams Raw Mill Operator Relationship Specialty Start Date End Date Meme Steel MD [address] [place] [address] 105 [place] [address] PCP - General Pediatrics 06/05/18 04/25/22 No Pcp, Pcp PCP - General 06/08/22 07/19/22 Guadalupe Mcbride MD PCP - General Family Medicine 07/20/22 11/01/23 Sena Dominguez PA [address] [place] [address] [place] [address] PCP - BRADY Physician Guidance And Control System Engineer 11/02/23 Levy Barry MD [address] [place] [address] [place] [address] PCP - General Family Medicine 12/20/23 documented as of this encounter
--- OUTSIDE RECORDS SUMMARY | 2025-08-08 14:36 | XMS_ITS | Encounter Summary ---
Author Organization [facility] work ([facility]) Address [address] [place] [address] Care Team Providers Care Gravity Meter Operator Name Role Phone Meme Steel MD Primary Care Provider [phone] Pcp, Pcp Primary Care Provider Unavailabl Guadalupe Bardales MD Primary Care Provider [phone] Sena Dominguez Unavailable [phone] Levy Barry MD Primary Care Provider Unavailab le Source Comments The information that you have received may contain highly confidential and/or federally protected health information. This information has been disclosed to you from records protected by [facility]. The law prohibits you from [...] sender immediately.[facility] ([facility]) Encounter Details Date Type Department Care Team (Late st Contact Info) Description 02/08/2006 Historical Note [facility] MoneyLion System Devyn Vásquez MD [address] [place] [address] [phone] Social History Tobacco Use Types Packs/Day Years [...] - [facility] [address] [facility] [address] [place] [phone] Brenda Clay MD [address] [facility] [address] [place] [address] 04/15/2026 10:00 AM EDT Office Visit [facility]HA [facility] at [facility] + [facility] [address] [facility] [address] [place] [address] Sena Dominguez PA [address] [facility] [place] [address] documented as of this encounter Visit Diagnoses Not on filedocumented in this encounter Care Teams Gravity Meter Operator Relationship Specialty Start Date End Date Meme Steel MD [address] [place] [address] 105 [place] [address] PCP - General Pediatrics 06/05/18 04/25/22 No Pcp, Pcp PCP - General 06/08/22 07/19/22 Guadalupe Mcbride MD PCP - General Family Medicine 07/20/22 11/01/23 Sena Dominguez PA [address] [place] [address] [place] [address] PCP - BRADY Physician Blackjack Supervisor 11/02/23 Levy Barry MD [address] [place] [address] [place] [address] PCP - General Family Medicine 12/20/23 documented as of this encounter
--- OUTSIDE RECORDS SUMMARY | 2025-08-08 14:36 | XMS_ITS | Encounter Summary ---
Author Organization [facility] work ([facility]) Address [address] [address] [address] [place] [address] Care Team Providers Care Mobile Home Laborer Name Role Phone Meme Steel MD Primary Care Provider No Pcp, Pcp Primary Care Provider Unavailabl Guadalupe Bardales MD Primary Care Provider [phone] Sena Dominguez Unavailable [phone] Levy Barry MD Primary Care Provider Unavailab le Source Comments The information that you have received may contain highly confidential and/or federally protected health information. This information has been disclosed to you from records protected by [facility]. The law prohibits you from [...] contact the sender immediately.[facility] ([facility]) Encounter Details Date Type Department Care Team (Late st Contact Info) Description 06/14/2007 Historical Note SVMG innRoad System Devyn Vásquez MD [address] [place] [address] [phone] Social History Tobacco Use Types Packs/Day Years [...] LEATHA CARRILLO - [facility] [address] [facility] [address] [place] [phone] Brenda Clay MD [address] [facility] [address] [place] [address] 04/15/2026 10:00 AM EDT Office Visit LEATHA Primary [facility] at [facility] + [facility] [address] [facility] [address] [place] [address] Sena Dominguez PA [address] [facility] [place] [address] documented as of this encounter Visit Diagnoses Not on filedocumented in this encounter Care Teams Mobile Home Laborer Relationship Specialty Start Date End Date Meme Steel MD [address] [place] [address] 105 [place] [address] PCP - General Pediatrics 06/05/18 04/25/22 No Pcp, Pcp PCP - General 06/08/22 07/19/22 Guadalupe Mcbride MD PCP - General Family Medicine 07/20/22 11/01/23 Sena Dominguez PA [address] [place] [address] [place] [address] PCP - BRADY Physician Livestock Broker 11/02/23 Levy Barry MD [address] [place] [address] [place] [address] PCP - General Family Medicine 12/20/23 documented as of this encounter
--- OUTSIDE RECORDS SUMMARY | 2025-08-08 14:36 | XMS_ITS | Encounter Summary ---
Author Organization [facility] work ([facility]) Address [address] [place] [address] Care Team Providers Care Counter Sales Representative Name Role Phone Meme Steel MD Primary Care Provider [phone] No Pcp, Pcp Primary Care Provider Unavailabl Guadalupe Bardales MD Primary Care Provider [phone] Sena Dominguez Unavailable [phone] Levy Barry MD Primary Care Provider Unavailab le Source Comments The information that you have received may contain highly confidential and/or federally protected health information. This information has been disclosed to you from records protected by [facility]. The law prohibits you from [...] sender immediately.[facility] ([facility]) Encounter Details Date Type Department Care Team (Late st Contact Info) Description 05/22/2012 Historical Note [facility]G G-mode System Devyn Vásquez MD [address] [place] [address] [phone] Social History Tobacco Use Types Packs/Day Years [...] - [facility] [address] [facility] [address] [place] [phone] Brenda Clay MD [address] [facility] [address] [place] [address] 04/15/2026 10:00 AM EDT Office Visit LEATHA [facility] at [facility] + [facility] [address] [facility] [address] [place] [address] Sena Dominguez PA [address] [facility] [place] [address] documented as of this encounter Visit Diagnoses Not on filedocumented in this encounter Care Teams Counter Sales Representative Relationship Specialty Start Date End Date Meme Steel MD [address] [place] [address] 105 [place] [address] PCP - General Pediatrics 06/05/18 04/25/22 No Pcp, Pcp PCP - General 06/08/22 07/19/22 Guadalupe Mcbride MD PCP - General Family Medicine 07/20/22 11/01/23 Sena Dominguez PA [address] [place] [address] [place] [address] PCP - BRADY Physician Loom Control Chain Builder 11/02/23 Levy Barry MD [address] [place] [address] [place] [address] PCP - General Family Medicine 12/20/23 documented as of this encounter
--- OUTSIDE RECORDS SUMMARY | 2025-08-08 14:37 | XMS_ITS | Encounter Summary ---
Author Organization [facility] work ([facility]) Address [address] [facility] [address] [facility] [address] [address] [place] [address] Care Team Providers Care Computer Programming Manager Name Role Phone Meme Steel MD Primary Care Provider No Pcp, Pcp Primary Care Provider Unavailabl Guadalupe Bardales MD Primary Care Provider [phone] Sena Dominguez Unavailable Levy Barry MD Primary Care Provider Unavailab le Source Comments The information that you have received may contain highly confidential and/or federally protected health information. This information has been disclosed to you from records protected by [employer]. The law prohibits you [...] [facility] ([facility]) Encounter Details Date Type Department Care Team (Late st Contact Info) Description 02/08/2006 Historical Note SVMG Nettle System Devyn Vásquez MD [address] [place] [address] [phone] Social History Tobacco Use Types Packs/Day Years [...] Visit LEATHA CARRILLO - [facility] [address] [facility] [address] [place] [phone] Brenda Clay MD [address] [facility] [address] [place] [address] 04/15/2026 10:00 AM EDT Office Visit LE[facility]HA [facility] at [facility] + [facility] [address] [facility] [address] [place] [address] Sena Dominguez PA [address] [facility] [place] [address] documented as of this encounter Visit Diagnoses Not on filedocumented in this encounter Care Teams Computer Programming Manager Relationship Specialty Start Date End Date Meme Steel MD [address] [place] [address] 105 [place] [address] PCP - General Pediatrics 06/05/18 04/25/22 No Pcp, Pcp PCP - General 06/08/22 07/19/22 Guadalupe Mcbride MD PCP - General Family Medicine 07/20/22 11/01/23 Sena Dominguez PA [address] [place] [address] [place] [address] PCP - BRADY Physician Strip Mill Operator 11/02/23 Levy Barry MD [address] [place] [address] [place] [address] PCP - General Family Medicine 12/20/23 documented as of this encounter
--- OUTSIDE RECORDS SUMMARY | 2025-08-08 14:37 | XMS_ITS | Encounter Summary ---
Author Organization [facility] work ([facility]) Address [address] [place] [address] Care Team Providers Care Floor Tiling Professional Name Role Phone Meme Steel MD Primary Care Provider [phone] Pcp, Pcp Primary Care Provider Unavailabl Guadalupe Bardales MD Primary Care Provider [phone] Sena Dominguez Unavailable [phone] Levy Barry MD Primary Care Provider Unavailab le Source Comments The information that you have received may contain highly confidential and/or federally protected health information. This information has been disclosed to you from records protected by [facility]. The law prohibits you from [...] sender immediately.[facility] ([facility]) Encounter Details Date Type Department Care Team (Late st Contact Info) Description 09/21/2010 Historical Note [facility] [employer] System Devyn Vásquez MD [address] [place] [address] [phone] Social History Tobacco Use Types Packs/Day Years [...] LEATHA CARRILLO - [facility] [address] [facility] [address] [place] [phone] Brenda Clay MD [address] [facility] [address] [place] [phone] 04/15/2026 10:00 AM EDT Office Visit [facility] [address] [facility] [address] [place] [address] Sena Dominguez PA [address] [facility] [place] [address] documented as of this encounter Visit Diagnoses Not on filedocumented in this encounter Care Teams Floor Tiling Professional Relationship Specialty Start Date End Date Meme Steel MD [address] [place] [address] [place] [address] PCP - General Pediatrics 06/05/18 04/25/22 No Pcp, Pcp PCP - General 06/08/22 07/19/22 Guadalupe Mcbride MD PCP - General Family Medicine 07/20/22 11/01/23 Sena Dominguez PA [address] [place] [address] [place] [address] PCP - BRADY Physician Supervisor [facility] 11/02/23 Levy Barry MD [address] [place] [address] [place] [address] PCP - General Family Medicine 12/20/23 documented as of this encounter
--- OUTSIDE RECORDS SUMMARY | 2025-08-08 14:37 | XMS_ITS | Encounter Summary ---
Author Organization [facility] work ([facility]) Address [address] [place] [address] Care Team Providers Care Parts Counterman Name Role Phone Meme Steel MD Primary Care Provider [phone] Pcp, Pcp Primary Care Provider Unavailabl Guadalupe Bardales MD Primary Care Provider [phone] Sena Dominguez Unavailable [phone] Levy Barry MD Primary Care Provider Unavailab le Source Comments The information that you have received may contain highly confidential and/or federally protected health information. This information has been disclosed to you from records protected by [facility]. The law prohibits you from [...] please contact the sender immediately.[facility] ([facility]) Encounter Details Date Type Department Care Team (Late st Contact Info) Description 04/15/2011 Historical Note [facility] iKnowl System Devyn Vásquez MD [address] [place] [address] [phone] Social History Tobacco Use Types Packs/Day Years [...] CARRILLO - [facility] [address] [facility] [address] [place] [phone] Brenda Clay MD [address] [facility] [address] [place] [phone] 04/15/2026 10:00 AM EDT Office Visit [facility] [address] [facility] [address] [place] [address] Sena Dominguez PA [address] [facility] [place] [address] documented as of this encounter Visit Diagnoses Not on filedocumented in this encounter Care Teams Parts Counterman Relationship Specialty Start Date End Date Meme Steel MD [address] [place] [address] 105 [place] [address] PCP - General Pediatrics 06/05/18 04/25/22 No Pcp, Pcp PCP - General 06/08/22 07/19/22 Guadalupe Mcbride MD PCP - General Family Medicine 07/20/22 11/01/23 Sena Dominguez PA [address] [place] [address] [place] [address] PCP - BRADY Physician Conductor Yard 11/02/23 Levy Barry MD [address] [place] [address] [place] [address] PCP - General Family Medicine 12/20/23 documented as of this encounter
--- OUTSIDE RECORDS SUMMARY | 2025-08-08 14:37 | XMS_ITS | Encounter Summary ---
Author Organization [facility] work ([facility]) Address [address] [place] [address] Care Team Providers Care Director Hair Name Role Phone Meme Steel MD Primary Care Provider [phone] Pcp, Pcp Primary Care Provider Unavailabl Guadalupe Bardales MD Primary Care Provider [phone] Sena Dominguez Unavailable [phone] Levy Barry MD Primary Care Provider Unavailab le Source Comments The information that you have received may contain highly confidential and/or federally protected health information. This information has been disclosed to you from records protected by [facility]. The law prohibits you from [...] please contact the sender immediately.[facility] ([facility]) Encounter Details Date Type Department Care Team (Late st Contact Info) Description 11/04/2005 Historical Note [facility] Divas Diamond System Devyn Vásquez MD [address] [place] [address] [phone] Social History Tobacco Use Types Packs/Day Years [...] Visit LEATHA CARRILLO - [facility] [address] [place] [phone] Brenda Clay MD [address] [facility] [address] [place] [phone] 04/15/2026 10:00 AM EDT Office Visit [facility] + [facility] [address] [facility] [address] [place] [address] Sena Dominguez PA [address] [facility] [place] [address] documented as of this encounter Visit Diagnoses Not on filedocumented in this encounter Care Teams Director Hair Relationship Specialty Start Date End Date Meme Steel MD [address] [place] [address] 105 [place] [address] PCP - General Pediatrics 06/05/18 04/25/22 No Pcp, Pcp PCP - General 06/08/22 07/19/22 Guadalupe Mcbride MD PCP - General Family Medicine 07/20/22 11/01/23 Sena Dominguez PA [address] [place] [address] [place] [address] PCP - BRADY Physician Special Loan Officer 11/02/23 Levy Barry MD [address] [place] [address] [place] [address] PCP - General Family Medicine 12/20/23 documented as of this encounter
--- OUTSIDE RECORDS SUMMARY | 2025-08-08 14:37 | XMS_ITS | Encounter Summary ---
Author Organization [facility] work ([facility]) Address [address] [place] [address] Care Team Providers Care Manager Medicare Name Role Phone Meme Steel MD Primary Care Provider [phone] Pcp, Pcp Primary Care Provider Unavailabl Guadalupe Bardales MD Primary Care Provider [phone] Sena Dominguez Unavailable [phone] Levy Barry MD Primary Care Provider Unavailab le Source Comments The information that you have received may contain highly confidential and/or federally protected health information. This information has been disclosed to you from records protected by [facility]. The law prohibits you [...] please contact the sender immediately.[facility] ([facility]) Encounter Details Date Type Department Care Team (Late st Contact Info) Description 11/06/2005 Historical Note [facility] Recommendi System Devyn Vásquez MD [address] [place] [address] [phone] Social History Tobacco Use Types Packs/Day Years [...] CARRILLO - [facility] [address] [place] [phone] Brenda Clay MD [address] [facility] [address] [place] [address] 04/15/2026 10:00 AM EDT Office Visit [facility] at [facility] [address] [facility] [address] [place] [address] Sena Dominguez PA [address] [facility] [place] [address] documented as of this encounter Visit Diagnoses Not on filedocumented in this encounter Care Teams Manager Medicare Relationship Specialty Start Date End Date Meme Steel MD [address] [place] [address] 105 [place] [address] PCP - General Pediatrics 06/05/18 04/25/22 No Pcp, Pcp PCP - General 06/08/22 07/19/22 Guadalupe Mbcride MD PCP - General Family Medicine 07/20/22 11/01/23 Sena Dominguez PA [address] [place] [address] [place] [address] PCP - BRADY Physician Recordist Chief 11/02/23 Levy Barry MD [address] [place] [address] [place] [address] PCP - General Family Medicine 12/20/23 documented as of this encounter
--- OUTSIDE RECORDS SUMMARY | 2025-08-08 14:37 | XMS_ITS | Encounter Summary ---
Author Organization [facility] work ([facility]) Address [address] [place] [address] Care Team Providers Care Heavy Mobile Equipment Repairer Name Role Phone Meme Steel MD Primary Care Provider [phone] Pcp, Pcp Primary Care Provider Unavailabl Guadalupe Bardales MD Primary Care Provider Sena Dominguez Unavailable [phone] Levy Barry MD Primary Care Provider Unavailab le Source Comments The information that you have received may contain highly confidential and/or federally protected health information. This information has been disclosed to you from records protected by [employer]. The law prohibits you from [...] please contact the sender immediately.[facility] ([facility]) Encounter Details Date Type Department Care Team (Late st Contact Info) Description 11/09/2005 Historical Note [facility] [employer] System Devyn Vásquez MD [address] [place] [address] [phone] Social History Tobacco Use Types Packs/Day Years [...] LEATHA CARRILLO - [facility] [address] [facility] [address] [place] [phone] Brenda Clay MD [address] [facility] [address] [place] [address] 04/15/2026 10:00 AM EDT Office Visit [facility] at [facility] + [facility] [address] [facility] [address] [place] [address] Sena oDminguez PA [address] [facility] [place] [address] documented as of this encounter Visit Diagnoses Not on filedocumented in this encounter Care Teams Heavy Mobile Equipment Repairer Relationship Specialty Start Date End Date Meme Steel MD [address] [place] [address] 105 [place] [address] PCP - General Pediatrics 06/05/18 04/25/22 No Pcp, Pcp PCP - General 06/08/22 07/19/22 Guadalupe Mcbride MD PCP - General Family Medicine 07/20/22 11/01/23 Sena Dominguez PA [address] [place] [address] [place] [address] PCP - BRADY Physician Industrial Relations Commissioner 11/02/23 Levy Barry MD [address] [place] [address] [place] [address] PCP - General Family Medicine 12/20/23 documented as of this encounter
--- OUTSIDE RECORDS SUMMARY | 2025-08-08 14:37 | XMS_ITS | Encounter Summary ---
Author Organization [facility] work ([facility]) Address [address] [place] [address] Care Team Providers Care Manager Grocery Name Role Phone Meme Steel MD Primary Care Provider No Pcp, Pcp Primary Care Provider Unavailabl Guadalupe Bardales MD Primary Care Provider [phone] Sena Dominguez Unavailable [phone] Levy Barry MD Primary Care Provider Unavailab le Source Comments The information that you have received may contain highly confidential and/or federally protected health information. This information has been disclosed to you from records protected by [facility]. The law prohibits you from [...] Contact Info) Description 01/06/2006 Historical Note [facility] [employer] System Devyn Vásquez MD [address] [place] [address] [phone] Social History Tobacco Use Types Packs/Day Years [...] LEATHA CARRILLO - [facility] [address] [facility] [address] [place] [phone] Brenda Clay MD [address] [facility] [address] [place] [address] 04/15/2026 10:00 AM EDT Office Visit LEATHA [facility] at [facility] [address] [facility] [address] [place] [address] Sena Dominguez PA [address] [facility] [place] [address] documented as of this encounter Visit Diagnoses Not on filedocumented in this encounter Care Teams Manager Grocery Relationship Specialty Start Date End Date Meme Steel MD [address] [place] [address] 105 [place] [address] PCP - General Pediatrics 06/05/18 04/25/22 No Pcp, Pcp PCP - General 06/08/22 07/19/22 Guadalupe Mcbride MD PCP - General Family Medicine 07/20/22 11/01/23 Sena Dominguez PA [address] [place] [address] [place] [address] PCP - BRADY Physician Market Intelligence Consultant 11/02/23 Levy Barry MD [address] [place] [address] [place] [address] PCP - General Family Medicine 12/20/23 documented as of this encounter
--- OUTSIDE RECORDS SUMMARY | 2025-08-08 14:37 | XMS_ITS | Encounter Summary ---
Author Organization [facility] work ([facility]) Address [address] [place] [address] Care Team Providers Care Table Assembler Name Role Phone Meme Steel MD Primary Care Provider [phone] Pcp, Pcp Primary Care Provider Unavailabl Guadalupe Bardales MD Primary Care Provider [phone] Sena Dominguez Unavailable [phone] Levy Barry MD Primary Care Provider Unavailab le Source Comments The information that you have received may contain highly confidential and/or federally protected health information. This information has been disclosed to you from records protected by [facility]. The law prohibits you [...] sender immediately.[facility] ([facility]) Encounter Details Date Type Department Care Team (Late st Contact Info) Description 12/15/2005 Historical Note [facility] [employer] System Devyn Vásquez MD [address] [place] [address] [phone] Social History Tobacco Use Types Packs/Day Years [...] - [facility] [address] [facility] [address] [place] [phone] Brenda Clay MD [address] [facility] [address] [place] [phone] 04/15/2026 10:00 AM EDT Office Visit LEATHA [facility] at [facility] + [facility] [address] [facility] [address] [place] [address] Sena Dominguez PA [address] [facility] [place] [address] documented as of this encounter Visit Diagnoses Not on filedocumented in this encounter Care Teams Table Assembler Relationship Specialty Start Date End Date Meme Steel MD [address] [place] [address] 105 [place] [address] PCP - General Pediatrics 06/05/18 04/25/22 No Pcp, Pcp PCP - General 06/08/22 07/19/22 Guadalupe Mcbride MD PCP - General Family Medicine 07/20/22 11/01/23 Sena Dominguez PA [address] [place] [address] [place] [address] PCP - BRADY Physician Structures Assembler 11/02/23 Levy Barry MD [address] [place] [address] [place] [address] PCP - General Family Medicine 12/20/23 documented as of this encounter
--- OUTSIDE RECORDS SUMMARY | 2025-08-08 14:37 | XMS_ITS | Encounter Summary ---
Author Organization [facility] work ([facility]) Address [address] [place] [address] Care Team Providers Care Quality Coordinator Name Role Phone Meme Steel MD Primary Care Provider [phone] Pcp, Pcp Primary Care Provider Unavailabl Guadalupe Bardales MD Primary Care Provider [phone] Sena Dominguez Unavailable [phone] Levy Barry MD Primary Care Provider Unavailab le Source Comments The information that you have received may contain highly confidential and/or federally protected health information. This information has been disclosed to you from records protected by [facility]. The law prohibits you [...] please contact the sender immediately.[facility] ([facility]) Encounter Details Date Type Department Care Team (Late st Contact Info) Description 04/12/2011 Historical Note [facility] [employer] System Devyn Vásquez MD [address] [place] [address] [phone] Social History Tobacco Use Types Packs/Day Years [...] - [facility] [address] [facility] [address] [place] [phone] Bernda Clay MD [address] [facility] [address] [place] [phone] 04/15/2026 10:00 AM EDT Office Visit LEATHA [facility] at [facility] + [facility] [address] [facility] [address] [place] [address] Sena Dominguez PA [address] [facility] [place] [address] documented as of this encounter Visit Diagnoses Not on filedocumented in this encounter Care Teams Quality Coordinator Relationship Specialty Start Date End Date Meme Steel MD [address] [place] [address] 105 [place] [address] PCP - General Pediatrics 06/05/18 04/25/22 No Pcp, Pcp PCP - General 06/08/22 07/19/22 Guadalupe Mcbride MD PCP - General Family Medicine 07/20/22 11/01/23 Sena Dominguez PA [address] [place] [address] [place] [address] PCP - BRADY Physician Certified Pharmacy Technician 11/02/23 Levy Barry MD [address] [place] [address] [place] [address] PCP - General Family Medicine 12/20/23 documented as of this encounter
--- OUTSIDE RECORDS SUMMARY | 2025-08-08 14:37 | XMS_ITS | Encounter Summary ---
Author Organization [facility] work ([facility]) Address [address] [place] [address] Care Team Providers Care Temperature Inspector Name Role Phone Meme Steel MD Primary Care Provider [phone] No Pcp, Pcp Primary Care Provider Unavailabl Guadalupe Bardales MD Primary Care Provider [phone] Sena Dominguez Unavailable [phone] Levy Barry MD Primary Care Provider Unavailab le Source Comments The information that you have received may contain highly confidential and/or federally protected health information. This information has been disclosed to you from records protected by [facility]. The law prohibits you from making [...] please contact the sender immediately.[facility] ([facility]) Encounter Details Date Type Department Care Team (Late st Contact Info) Description 01/06/2006 Historical Note [facility] [employer] System Devyn Vásquez MD [address] [place] [address] [phone] Social History Tobacco Use Types Packs/Day Years [...] CARRILLO - [facility] [address] [facility] [address] [place] [phone] Brenda Clay MD [address] [facility] [address] [place] [phone] 04/15/2026 10:00 AM EDT Office Visit LE[facility]HA [facility] at [facility] + [facility] [address] [facility] [address] [place] [address] Sena Dominguez PA [address] [facility] [place] [address] documented as of this encounter Visit Diagnoses Not on filedocumented in this encounter Care Teams Temperature Inspector Relationship Specialty Start Date End Date Meme Steel MD [address] [place] [address] 105 [place] [address] PCP - General Pediatrics 06/05/18 04/25/22 No Pcp, Pcp PCP - General 06/08/22 07/19/22 Guadalupe Mcbride MD PCP - General Family Medicine 07/20/22 11/01/23 Sena Dominguez PA [address] [place] [address] [place] [address] PCP - BRADY Physician Automobile Mechanic Supervisor 11/02/23 Levy Barry MD [address] [place] [address] [place] [address] PCP - General Family Medicine 12/20/23 documented as of this encounter
--- OUTSIDE RECORDS SUMMARY | 2025-08-08 14:37 | XMS_ITS | Encounter Summary ---
Author Organization [facility] work ([facility]) Address [address] [place] [address] Care Team Providers Care Returns Supervisor Name Role Phone Meme Steel MD Primary Care Provider [phone] Pcp, Pcp Primary Care Provider Unavailabl Guadalupe Bardales MD Primary Care Provider [phone] Sena Dominguez Unavailable [phone] Levy Barry MD Primary Care Provider Unavailab le Source Comments The information that you have received may contain highly confidential and/or federally protected health information. This information has been disclosed to you from records protected by [employer]. The law prohibits you from [...] sender immediately.[facility] ([facility]) Encounter Details Date Type Department Care Team (Late st Contact Info) Description 04/14/2011 Historical Note [facility] Stumpwise System Devyn Vásquez MD [address] [place] [address] [phone] Social History Tobacco Use Types Packs/Day Years [...] CARRILLO - [facility] [address] [facility] [address] [place] [phone] Brenda Clay MD [address] [facility] [address] [place] [address] 04/15/2026 10:00 AM EDT Office Visit LE[facility]HA [facility] at [facility] + [facility] [address] [facility] [address] [place] [address] Sena Dominguez PA [address] [facility] [place] [address] documented as of this encounter Visit Diagnoses Not on filedocumented in this encounter Care Teams Returns Supervisor Relationship Specialty Start Date End Date Meme Steel MD [address] [place] [address] 105 [place] [address] PCP - General Pediatrics 06/05/18 04/25/22 No Pcp, Pcp PCP - General 06/08/22 07/19/22 Guadalupe Mcbride MD PCP - General Family Medicine 07/20/22 11/01/23 Sena Dominguez PA [address] [place] [address] [place] [address] PCP - BRADY Physician Rating Examiner 11/02/23 Levy Barry MD [address] [place] [address] [place] [address] PCP - General Family Medicine 12/20/23 documented as of this encounter
--- OUTSIDE RECORDS SUMMARY | 2025-08-08 14:37 | XMS_ITS | Encounter Summary ---
Author Organization [facility] work ([facility]) Address [address] [place] [address] Care Team Providers Care Log Buncher Name Role Phone Meme Steel MD Primary Care Provider [phone] Pcp, Pcp Primary Care Provider Unavailabl Guadalupe Bardales MD Primary Care Provider [phone] Sena Dominguez Unavailable [phone] Levy Barry MD Primary Care Provider Unavailab le Source Comments The information that you have received may contain highly confidential and/or federally protected health information. This information has been disclosed to you from records protected by [employer] [place]. The law prohibits you from making [...] contact the sender immediately.[facility] ([facility]) Encounter Details Date Type Department Care Team (Late st Contact Info) Description 04/15/2011 Historical Note [facility] MOAEC System Devyn Vásquez MD [address] [place] [address] [id number] Social History Tobacco Use Types Packs/Day Years [...] LEATHA CARRILLO - [facility] [address] [facility] [address] [place] [phone] Brenda Clay MD [address] [facility] [address] [place] [address] 04/15/2026 10:00 AM EDT Office Visit LEATHA [facility] at [facility] + [facility] [address] [facility] [address] [place] [address] Sena Dominguez PA [address] [facility] [place] [address] documented as of this encounter Visit Diagnoses Not on filedocumented in this encounter Care Teams Log Buncher Relationship Specialty Start Date End Date Meme Steel MD [address] [place] [address] [place] [address] PCP - General Pediatrics 06/05/18 04/25/22 No Pcp, Pcp PCP - General 06/08/22 07/19/22 Guadalupe Mcbride MD PCP - General Family Medicine 07/20/22 11/01/23 Sena Dominguez PA [address] [place] [address] [place] [address] PCP - BRADY Physician Acid Splicer 11/02/23 Levy Barry MD [address] [place] [address] [place] [address] PCP - General Family Medicine 12/20/23 documented as of this encounter
--- OUTSIDE RECORDS SUMMARY | 2025-08-08 14:37 | XMS_ITS | Encounter Summary ---
Author Organization [facility] work ([facility]) Address [address] [place] [address] Care Team Providers Care Tetryl Wringer Operator Name Role Phone Meme Steel MD Primary Care Provider [phone] Pcp, Pcp Primary Care Provider Unavailabl Guadalupe Bardales MD Primary Care Provider [phone] Sena Dominguez Unavailable [phone] Levy Barry MD Primary Care Provider Unavailab le Source Comments The information that you have received may contain highly confidential and/or federally protected health information. This information has been disclosed to you from records protected by [facility]. The law prohibits you [...] error, please contact the sender immediately.[facility] ([facility]) Encounter Details Date Type Department Care Team (Late st Contact Info) Description 09/29/2011 Historical Note SVMG Toolwi System Devyn Vásquez MD [address] [place] [address] [phone] Social History Tobacco Use Types Packs/Day Years [...] - [facility] [address] [facility] [address] [place] [phone] Brenda Clay MD [address] [facility] [address] [place] [address] 04/15/2026 10:00 AM EDT Office Visit LEATHA [facility] at [facility] + [facility] [address] [facility] [address] [place] [address] Sena Dominguez PA [address] [facility] [place] [address] documented as of this encounter Visit Diagnoses Not on filedocumented in this encounter Care Teams Tetryl Wringer Operator Relationship Specialty Start Date End Date Meme Steel MD [address] [place] [address] 105 [place] [address] PCP - General Pediatrics 06/05/18 04/25/22 No Pcp, Pcp PCP - General 06/08/22 07/19/22 Guadalupe Mcbride MD PCP - General Family Medicine 07/20/22 11/01/23 Sena Dominguez PA [address] [place] [address] [place] [address] PCP - BRADY Physician Junior Accountant Bookkeeper 11/02/23 Levy Barry MD [address] [place] [address] [place] [address] PCP - General Family Medicine 12/20/23 documented as of this encounter
--- OUTSIDE RECORDS SUMMARY | 2025-08-08 14:37 | XMS_ITS | Encounter Summary ---
Author Organization [facility] work ([facility]) Address [address] [place] [address] Care Team Providers Care Motor Lodge Clerk Name Role Phone Meme Steel MD Primary Care Provider [phone] Pcp, Pcp Primary Care Provider Unavailabl Guadalupe Bardales MD Primary Care Provider [phone] Sena Dominguez Unavailable [phone] Levy Barry MD Primary Care Provider Unavailab le Source Comments The information that you have received may contain highly confidential and/or federally protected health information. This information has been disclosed to you from records protected by [facility]. The law prohibits you [...] please contact the sender immediately.[facility] ([facility]) Encounter Details Date Type Department Care Team (Late st Contact Info) Description 11/25/2010 Historical Note SVMG Klip System Devyn Vásquez MD [address] [place] [address] [phone] Social History Tobacco Use Types Packs/Day Years [...] CARRILLO - [facility] [address] [facility] [address] [place] [phone] Brenda Clay MD [address] [facility] [address] [place] [phone] 04/15/2026 10:00 AM EDT Office Visit LEATHA Primary [facility] at [facility] + [facility] [address] [facility] [address] [place] [address] Sena Dominguez PA [address] [facility] [place] [address] documented as of this encounter Visit Diagnoses Not on filedocumented in this encounter Care Teams Motor Lodge Clerk Relationship Specialty Start Date End Date Meme Steel MD [address] [place] [address] 105 [place] [address] PCP - General Pediatrics 06/05/18 04/25/22 No Pcp, Pcp PCP - General 06/08/22 07/19/22 Guadalupe Mcbride MD PCP - General Family Medicine 07/20/22 11/01/23 Sena Dominguez PA [address] [place] [address] [place] [address] PCP - BRADY Physician Is Manager 11/02/23 Levy Barry MD [address] [place] [address] [place] [address] PCP - General Family Medicine 12/20/23 documented as of this encounter
--- OUTSIDE RECORDS SUMMARY | 2025-08-08 14:37 | XMS_ITS | Encounter Summary ---
Author Organization [facility] work ([facility]) Address [address] [place] [address] Care Team Providers Care Pet Handler Name Role Phone Meme Steel MD Primary Care Provider [phone] Pcp, Pcp Primary Care Provider Unavailabl Guadalupe Bardales MD Primary Care Provider [phone] Sena Dominguez Unavailable [phone] Levy Barry MD Primary Care Provider Unavailab le Source Comments The information that you have received may contain highly confidential and/or federally protected health information. This information has been disclosed to you from records protected by [facility]. The law prohibits you [...] contact the sender immediately.[facility] ([facility]) Encounter Details Date Type Department Care Team (Late st Contact Info) Description 10/18/2005 Historical Note SVMG [employer] Level Security Systems System Devyn Vásquez MD [address] [place] [address] [phone] Social History Tobacco Use Types Packs/Day Years [...] [facility] [address] [facility] [address] [place] [phone] Brenda Clay MD [address] [facility] [address] [place] [address] 04/15/2026 10:00 AM EDT Office Visit [facility]HA [facility] at [facility] + [facility] [address] [facility] [address] [place] [address] Sena Dominguez PA [address] [facility] [place] [address] documented as of this encounter Visit Diagnoses Not on filedocumented in this encounter Care Teams Pet Handler Relationship Specialty Start Date End Date Meme Steel MD [address] [place] [address] 105 [place] [address] PCP - General Pediatrics 06/05/18 04/25/22 No Pcp, Pcp PCP - General 06/08/22 07/19/22 Guadalupe Mcbride MD PCP - General Family Medicine 07/20/22 11/01/23 Sena Dominguez PA [address] [place] [address] [place] [address] PCP - BRADY Physician Meat Puller 11/02/23 Levy Barry MD [address] [place] [address] [place] [address] PCP - General Family Medicine 12/20/23 documented as of this encounter
--- OUTSIDE RECORDS SUMMARY | 2025-08-08 14:37 | XMS_ITS | Encounter Summary ---
Author Organization [facility] work ([facility]) Address [address] [place] [address] Care Team Providers Care Healthcare Technician Name Role Phone Meme Steel MD Primary Care Provider [phone] Pcp, Pcp Primary Care Provider Unavailabl Guadalupe Bardales MD Primary Care Provider [phone] Sena Dominguez Unavailable [phone] Levy Barry MD Primary Care Provider Unavailab le Source Comments The information that you have received may contain highly confidential and/or federally protected health information. This information has been disclosed to you from records protected by [facility] [facility]. The law prohibits you [...] contact the sender immediately.[facility] ([facility]) Encounter Details Date Type Department Care Team (Late st Contact Info) Description 10/18/2005 Historical Note SVMG MiSiedo System Devyn Vásquez MD [address] [place] [address] [phone] Social History Tobacco Use Types Packs/Day Years [...] LEATHA CARRILLO - [facility] [address] [facility] [address] [place] [phone] Brenda Clay MD [address] [facility] [address] [place] [address] 04/15/2026 10:00 AM EDT Office Visit LEATHA [facility] at [facility] + [facility] [address] [facility] [address] [place] [address] Sena Dominguez PA [address] [facility] [place] [address] documented as of this encounter Visit Diagnoses Not on filedocumented in this encounter Care Teams Healthcare Technician Relationship Specialty Start Date End Date Meme Steel MD [address] [place] [address] 105 [place] [address] PCP - General Pediatrics 06/05/18 04/25/22 No Pcp, Pcp PCP - General 06/08/22 07/19/22 Guadalupe Mcbride MD PCP - General Family Medicine 07/20/22 11/01/23 Sena Dominguez PA [address] [place] [address] [place] [address] PCP - BRADY Physician Nurses Educator 11/02/23 Levy Barry MD [address] [place] [address] [place] [address] PCP - General Family Medicine 12/20/23 documented as of this encounter
--- OUTSIDE RECORDS SUMMARY | 2025-08-08 14:37 | XMS_ITS | Encounter Summary ---
Author Organization [facility] work ([facility]) Address [address] [place] [address] Care Team Providers Care Associate Professor Of Biblical Studies Name Role Phone Meme Steel MD Primary Care Provider [phone] Pcp, Pcp Primary Care Provider Unavailabl Guadalupe Bardales MD Primary Care Provider [phone] Sena Dominguez Unavailable [phone] Levy Barry MD Primary Care Provider Unavailab le Source Comments The information that you have received may contain highly confidential and/or federally protected health information. This information has been disclosed to you from records protected by [employer] [facility]. The law prohibits you [...] the sender immediately.[facility] ([facility]) Encounter Details Date Type Department Care Team (Late st Contact Info) Description 05/24/2012 Historical Note [facility]G SpamLion System Devyn Vásquez MD [address] [place] [address] [phone] Social History Tobacco Use Types Packs/Day Years [...] LEATHA CARRILLO - [facility] [address] [facility] [address] [place] [phone] Brenda Clay MD [address] [facility] [address] [place] [address] 04/15/2026 10:00 AM EDT Office Visit LEATHA Primary [facility] at [facility] + [facility] [address] [facility] [address] [place] [address] Sena Dominguez PA [address] [facility] [place] [address] documented as of this encounter Visit Diagnoses Not on filedocumented in this encounter Care Teams Associate Professor Of Biblical Studies Relationship Specialty Start Date End Date Meme Steel MD [address] [place] [address] 105 [place] [address] PCP - General Pediatrics 06/05/18 04/25/22 No Pcp, Pcp PCP - General 06/08/22 07/19/22 Guadalupe Mcbride MD PCP - General Family Medicine 07/20/22 11/01/23 Sena Dominguez PA [address] [place] [address] [place] [address] PCP - BRADY Physician Histology Specialist 11/02/23 Levy Barry MD [address] [place] [address] [place] [address] PCP - General Family Medicine 12/20/23 documented as of this encounter
--- OUTSIDE RECORDS SUMMARY | 2025-08-08 14:37 | XMS_ITS | Encounter Summary ---
Author Organization [facility] work ([facility]) Address [address] [place] [address] Care Team Providers Care Forming Machine Operator Name Role Phone Meme Steel MD Primary Care Provider [phone] Pcp, Pcp Primary Care Provider Unavailabl Guadalupe Bardales MD Primary Care Provider [phone] Sena Dominguez Unavailable [phone] Levy Barry MD Primary Care Provider Unavailab le Source Comments The information that you have received may contain highly confidential and/or federally protected health information. This information has been disclosed to you from records protected by [facility]. The law prohibits [...] please contact the sender immediately.[facility] ([facility]) Encounter Details Date Type Department Care Team (Late st Contact Info) Description 03/09/2017 Historical Note SVMG RiskIQ System Devyn Vásquez MD [address] [place] [address] [phone] Social History Tobacco Use Types Packs/Day Years [...] CARRILLO - [facility] [address] [facility] [address] [place] [phone] Brenda Clay MD [address] [facility] [address] [place] [address] 04/15/2026 10:00 AM EDT Office Visit LEATHA [facility] at [facility] + [facility] [address] [facility] [address] [place] [address] Sena Dominguez PA [address] [facility] [place] [address] documented as of this encounter Visit Diagnoses Not on filedocumented in this encounter Care Teams Forming Machine Operator Relationship Specialty Start Date End Date Meme Steel MD [address] [place] [address] 105 [place] [address] PCP - General Pediatrics 06/05/18 04/25/22 No Pcp, Pcp PCP - General 06/08/22 07/19/22 Guadalupe Mcbride MD PCP - General Family Medicine 07/20/22 11/01/23 Sena Dominguez PA [address] [place] [address] [place] [address] PCP - BRADY Physician Mechanical Maintenance Engineer 11/02/23 Levy Barry MD [address] [place] [address] [place] [address] PCP - General Family Medicine 12/20/23 documented as of this encounter
--- OUTSIDE RECORDS SUMMARY | 2025-08-08 14:37 | XMS_ITS | Encounter Summary ---
Author Organization [facility] work ([facility]) Address [address] [facility] [address] [place] [address] Care Team Providers Care Absorption Operator Name Role Phone Meme Steel MD Primary Care Provider No Pcp, Pcp Primary Care Provider Unavailabl e Guadalupe Mcbride MD Primary Care Provider [phone] Sena Dominguez Unavailable [phone] Levy Barry MD Primary Care Provider Unavailab le Source Comments The information that you have received may contain highly confidential and/or federally protected health information. This information has been disclosed to you from records protected by [facility]. The law prohibits you [...] please contact the sender immediately.[facility] ([facility]) Encounter Details Date Type Department Care Team (Late st Contact Info) Description 10/31/2017 Historical Note [facility] Primary Care - [facility] [address] [place] [address] Devyn Vásquez MD [facility] [place] [address] Social History Tobacco Use Types Packs/Day Years Used Date Smoking Tobacco: Never Assessed Comments Unknown Sex and Gender Information Value Date Recorded Sex Assigned at Not on file Legal Sex Female 1:04 AM EDT Gender Identity Not on file Sexual Orientation Not on file documented as of this encounter Plan of Treatment Upcoming Encounters Date Type Department Care Team ([facility] st Contact Info) Description 10/10/2025 10:00 AM EST Office Visit LEATHA [facility] [address] [facility] [address] [place] [phone] Brenda Clay MD [address] [facility] [address] [place] [phone] 04/15/2026 10:00 AM EDT Office Visit LEATHA Primary [facility] at [facility] + [facility] [address] [facility] [address] [place] [address] Sena Dominguez PA [address] [place] [address] [place] [address] documented as of this encounter Visit Diagnoses Not on filedocumented in this encounter Care Teams Absorption Operator Relationship Specialty Start Date End Date Meme Steel MD [address] [place] [address] 105 [place] [address] PCP - General Pediatrics 06/05/18 04/25/22 No Pcp, Pcp PCP - General 06/08/22 07/19/22 Guadalupe Mcbride MD PCP - General Family Medicine 07/20/22 11/01/23 Sena Dominguez PA [address] [place] [address] [place] [address] PCP - BRADY Physician Linux Security Administrator 11/02/23 Levy Barry MD [address] [facility] [place] [address] PCP - General Family Medicine 12/20/23 documented as of this encounter
--- OUTSIDE RECORDS SUMMARY | 2025-08-08 14:37 | XMS_ITS | Encounter Summary ---
Author Organization [facility] work ([facility]) Address [address] [place] [address] Care Team Providers Care Bill Cutter Name Role Phone Meme Steel MD Primary Care Provider [phone] No Pcp, Pcp Primary Care Provider Unavailabl Guadalupe Bardales MD Primary Care Provider [phone] Sena Dominguez Unavailable [phone] Levy Barry MD Primary Care Provider Unavailab le Source Comments The information that you have received may contain highly confidential and/or federally protected health information. This information has been disclosed to you from records protected by [facility]. The law prohibits you [...] error, please contact the sender immediately.[facility] ([facility]) Encounter Details Date Type Department Care Team (Late st Contact Info) Description 11/07/2005 Historical Note SVMG SparkWords System Devyn Vásquez MD [address] [place] [address] [phone] Social History Tobacco Use Types Packs/Day Years [...] - [facility] [address] [facility] [address] [place] [phone] Brenda Clay MD [address] [facility] [address] [place] [address] 04/15/2026 10:00 AM EDT Office Visit LEATHA Primary [facility] at [facility] + [facility] [address] [facility] [address] [place] [address] Sena Dominguez PA [address] [facility] [place] [address] documented as of this encounter Visit Diagnoses Not on filedocumented in this encounter Care Teams Bill Cutter Relationship Specialty Start Date End Date Meme Steel MD [address] [place] [address] 105 [place] [address] PCP - General Pediatrics 06/05/18 04/25/22 No Pcp, Pcp PCP - General 06/08/22 07/19/22 Guadalupe Mcbride MD PCP - General Family Medicine 07/20/22 11/01/23 Sena Dominguez PA [address] [place] [address] [place] [address] PCP - BRADY Physician Bridge Ironworker Helper 11/02/23 Levy Brary MD [address] [place] [address] [place] [address] PCP - General Family Medicine 12/20/23 documented as of this encounter
--- OUTSIDE RECORDS SUMMARY | 2025-08-08 14:37 | XMS_ITS | Encounter Summary ---
Author Organization [facility] work ([facility]) Address [address] [place] [address] Care Team Providers Care Teenage Babysitter Name Role Phone Meme Steel MD Primary Care Provider [phone] No Pcp, Pcp Primary Care Provider Unavailabl Guadalupe Bardales MD Primary Care Provider [phone] Sena Dominguez Unavailable [phone] Levy Barry MD Primary Care Provider Unavailab le Source Comments The information that you have received may contain highly confidential and/or federally protected health information. This information has been disclosed to you from records protected by [facility]. The law prohibits you from [...] the sender immediately.[facility] ([facility]) Encounter Details Date Type Department Care Team (Late st Contact Info) Description 04/15/2011 Historical Note SVMG [employer] System Devyn Vásquez MD [address] [place] [phone] Social History Tobacco Use Types Packs/Day Years [...] Visit LEATHA CARRILLO - [facility] [address] [facility] [address] [place] [phone] Brenda Clay MD 23[address] [facility] [address] [place] [address] 04/15/2026 10:00 AM EDT Office Visit LEATHA Primary Care at [facility] + [facility] [address] [facility] [address] [place] [address] Sena Dominguez PA [address] [facility] [place] [address] documented as of this encounter Visit Diagnoses Not on filedocumented in this encounter Care Teams Teenage Babysitter Relationship Specialty Start Date End Date Meme Steel MD [address] [place] [address] 105 [place] [address] PCP - General Pediatrics 06/05/18 04/25/22 No Pcp, Pcp PCP - General 06/08/22 07/19/22 Guadalupe Mcbride MD PCP - General Family Medicine 07/20/22 11/01/23 Sena Dominguez PA [address] [place] [address] [place] [address] PCP - BRADY Physician Clinical Review Specialist 11/02/23 Levy Barry MD [address] [place] [address] [place] [address] PCP - General Family Medicine 12/20/23 documented as of this encounter
--- OUTSIDE RECORDS SUMMARY | 2025-08-08 14:37 | XMS_ITS | Encounter Summary ---
Author Organization [facility] work ([facility]) Address [address] [place] [address] Care Team Providers Care Batting Machine Operator Insulation Name Role Phone Meme Steel MD Primary Care Provider [phone] Pcp, Pcp Primary Care Provider Unavailabl Guadalupe Bardales MD Primary Care Provider [phone] Sena Dominguez Unavailable [phone] Levy Barry MD Primary Care Provider Unavailab le Source Comments The information that you have received may contain highly confidential and/or federally protected health information. This information has been disclosed to you from records protected by [facility]. The law prohibits you from [...] contact the sender immediately.[facility] ([facility]) Encounter Details Date Type Department Care Team (Late st Contact Info) Description 11/21/2005 Historical Note [facility] [place] [employer] [facility] Devyn Vásquez MD [address] [place] [address] [phone] Social History Tobacco Use Types Packs/Day Years [...] LEATHA CARRILLO - [facility] [address] [facility] [address] [place] [phone] Brenda Clay MD [address] [facility] [address] [place] [address] 04/15/2026 10:00 AM EDT Office Visit [facility] [address] [facility] [address] [place] [address] Sena Dominguez PA [address] [facility] [place] [address] documented as of this encounter Visit Diagnoses Not on filedocumented in this encounter Care Teams Batting Machine Operator Insulation Relationship Specialty Start Date End Date Meme Steel MD [address] [place] [address] [place] [address] PCP - General Pediatrics 06/05/18 04/25/22 No Pcp, Pcp PCP - General 06/08/22 07/19/22 Guadalupe Mcbirde MD PCP - General Family Medicine 07/20/22 11/01/23 Sena Dominguez PA [address] [place] [address] [place] [address] PCP - BRADY Physician Oncology Physician Assistant 11/02/23 Levy Barry MD [address] [place] [address] [place] [address] PCP - General Family Medicine 12/20/23 documented as of this encounter
--- OUTSIDE RECORDS SUMMARY | 2025-08-08 14:37 | XMS_ITS | Encounter Summary ---
Author Organization [facility] work ([facility]) Address [address] [place] [address] Care Team Providers Care Fork Truck Driver Name Role Phone Meme Steel MD Primary Care Provider [phone] Pcp, Pcp Primary Care Provider Unavailabl Guadalupe Bardales MD Primary Care Provider [phone] Sena Dominguez Unavailable [phone] Levy Barry MD Primary Care Provider Unavailab le Source Comments The information that you have received may contain highly confidential and/or federally protected health information. This information has been disclosed to you from records protected by [facility]. The law prohibits you from [...] contact the sender immediately.[facility] ([facility]) Encounter Details Date Type Department Care Team (Late st Contact Info) Description 09/22/2011 Historical Note [facility] [employer] [facility] Devyn Vásquez MD [address] [place] [address] [phone] Social History Tobacco Use Types Packs/Day Years [...] CARRILLO - [facility] [address] [facility] [address] [place] [phone] Brenda Clay MD [address] [facility] [address] [place] [address] 04/15/2026 10:00 AM EDT Office Visit [facility]HA [facility] at [facility] [address] [facility] [address] [place] [address] Sena Dominguez PA [address] [facility] [place] [address] documented as of this encounter Visit Diagnoses Not on filedocumented in this encounter Care Teams Fork Truck Driver Relationship Specialty Start Date End Date Meme Steel MD [address] [place] [address] 105 [place] [address] PCP - General Pediatrics 06/05/18 04/25/22 No Pcp, Pcp PCP - General 06/08/22 07/19/22 Guadalupe Mcbride MD PCP - General Family Medicine 07/20/22 11/01/23 Sena Dominguez PA [address] [place] [address] [place] [address] PCP - BRADY Physician Body Trimmer 11/02/23 Levy Barry MD [address] [place] [address] [place] [address] PCP - General Family Medicine 12/20/23 documented as of this encounter
--- OUTSIDE RECORDS SUMMARY | 2025-08-08 14:37 | XMS_ITS | Encounter Summary ---
Author Organization [facility] work ([facility]) Address [address] [place] [address] Care Team Providers Care Water Trainer Name Role Phone Meme Steel MD Primary Care Provider [phone] Pcp, Pcp Primary Care Provider Unavailabl Guadalupe Bardales MD Primary Care Provider [phone] Sena Dominguez Unavailable [phone] Levy Barry MD Primary Care Provider Unavailab le Source Comments The information that you have received may contain highly confidential and/or federally protected health information. This information has been disclosed to you from records protected by [facility]. The [...] error, please contact the sender immediately.[facility] ([facility]) Encounter Details Date Type Department Care Team (Late st Contact Info) Description 04/12/2011 Historical Note [facility] [employer] System Devyn Vásquez MD [address] [place] [address] [phone] Social History Tobacco Use Types Packs/Day Years [...] LEATHA CARRILLO - [facility] [address] [facility] [address] [place] [phone] Brenda Clay MD [address] [facility] [address] [place] [address] 04/15/2026 10:00 AM EDT Office Visit [facility] [address] [facility] [address] [place] [address] Sena Dominguez PA [address] [facility] [place] [address] documented as of this encounter Visit Diagnoses Not on filedocumented in this encounter Care Teams Water Trainer Relationship Specialty Start Date End Date Meme Steel MD [address] [place] [address] 105 [place] [address] PCP - General Pediatrics 06/05/18 04/25/22 No Pcp, Pcp PCP - General 06/08/22 07/19/22 Guadalupe Mcbride MD PCP - General Family Medicine 07/20/22 11/01/23 Sena Dominguez PA [address] [place] [address] [place] [address] PCP - BRADY Physician Printing Screen Assembler 11/02/23 Levy Barry MD [address] [place] [address] [place] [address] PCP - General Family Medicine 12/20/23 documented as of this encounter
--- OUTSIDE RECORDS SUMMARY | 2025-08-08 14:37 | XMS_ITS | Encounter Summary ---
Author Organization [facility] work ([facility]) Address [address] [place] [address] Care Team Providers Care Enterprise Security Architect Name Role Phone Meme Steel MD Primary Care Provider [phone] Pcp, Pcp Primary Care Provider Unavailabl Guadalupe Bardales MD Primary Care Provider [phone] Sena Dominguez Unavailable [phone] Levy Barry MD Primary Care Provider Unavailab le Source Comments The information that you have received may contain highly confidential and/or federally protected health information. This information has been disclosed to you from records protected by [facility]. The [...] error, please contact the sender immediately.[facility] ([facility]) Encounter Details Date Type Department Care Team (Late st Contact Info) Description 05/24/2012 Historical Note [facility] [employer] System Devyn Vásquez MD [address] [place] [address] [phone] Social History Tobacco Use Types Packs/Day Years [...] CARRILLO - [facility] [facility] [address] [facility] [address] [place] [phone] Brenda Clay MD [address] [facility] [address] [place] [address] 04/15/2026 10:00 AM EDT Office Visit [facility]HA [facility] at [facility] + [facility] [address] [facility] [address] [place] [address] Sena Dominguez PA [address] [facility] [place] [address] documented as of this encounter Visit Diagnoses Not on filedocumented in this encounter Care Teams Enterprise Security Architect Relationship Specialty Start Date End Date Meme Steel MD [address] [place] [address] 105 [place] [address] PCP - General Pediatrics 06/05/18 04/25/22 No Pcp, Pcp PCP - General 06/08/22 07/19/22 Guadalupe Mcbride MD PCP - General Family Medicine 07/20/22 11/01/23 Sena Dominguez PA [address] [place] [address] [place] [address] PCP - BRADY Physician Patient Escort 11/02/23 Levy Barry MD [address] [place] [address] [place] [address] PCP - General Family Medicine 12/20/23 documented as of this encounter
--- OUTSIDE RECORDS SUMMARY | 2025-08-08 14:37 | XMS_ITS | Encounter Summary ---
Author Organization [facility] work ([facility]) Address [address] [place] [address] Care Team Providers Care Internal Grinder Tender Name Role Phone Meme Steel MD Primary Care Provider No Pcp, Pcp Primary Care Provider Unavailabl Guadalupe Bardales MD Primary Care Provider [phone] Sena Dominguez Unavailable [phone] Levy Barry MD Primary Care Provider Unavailab le Source Comments The information that you have received may contain highly confidential and/or federally protected health information. This information has been disclosed to you from records protected by [facility]. The law prohibits you from [...] contact the sender immediately.[facility] ([facility]) Encounter Details Date Type Department Care Team (Late st Contact Info) Description 01/16/2017 Historical Note [facility] [employer] One System Devyn Vásquez MD [address] [place] [phone] Social History Tobacco Use Types Packs/Day Years [...] CARRILLO - [facility] at [facility] [address] [facility] [address] [place] [phone] Brenda Clay MD [address] [facility] [address] [place] [phone] 04/15/2026 10:00 AM EDT Office Visit LEATHA [facility] at [facility] + [facility] [address] [facility] [address] [place] [address] Sena Dominguez PA [address] [facility] [place] [address] documented as of this encounter Visit Diagnoses Not on filedocumented in this encounter Care Teams Internal Grinder Tender Relationship Specialty Start Date End Date Meme Steel MD [address] [place] [address] 105 [place] [address] PCP - General Pediatrics 06/05/18 04/25/22 No Pcp, Pcp PCP - General 06/08/22 07/19/22 Guadalupe Mcbride MD PCP - General Family Medicine 07/20/22 11/01/23 Sena Dominguez PA [address] [place] [address] [place] [address] PCP - BRADY Physician Inside Upholsterer 11/02/23 Levy Barry MD [address] [place] [address] [place] [address] PCP - General Family Medicine 12/20/23 documented as of this encounter
--- OUTSIDE RECORDS SUMMARY | 2025-08-08 14:37 | XMS_ITS | Encounter Summary ---
Author Organization [facility] work ([facility]) Address [address] [place] [address] Care Team Providers Care Mathematician Research Name Role Phone Meme Steel MD Primary Care Provider [phone] Pcp, Pcp Primary Care Provider Unavailabl Guadalupe Bardales MD Primary Care Provider [phone] Sena Dominguez Unavailable [phone] Levy Barry MD Primary Care Provider Unavailab le Source Comments The information that you have received may contain highly confidential and/or federally protected health information. This information has been disclosed to you from records protected by [facility]. The law prohibits you from [...] contact the sender immediately.[facility] ([facility]) Encounter Details Date Type Department Care Team (Late st Contact Info) Description 11/28/2005 Historical Note [facility] Bounce Exchange System Devyn Vásquez MD [address] [place] [address] [phone] Social History Tobacco Use Types Packs/Day Years [...] LEATHA CARRILLO - [facility] [address] [facility] [address] [place] [phone] Brenda Clay MD [address] [facility] [address] [place] [address] 04/15/2026 10:00 AM EDT Office Visit LEATHA [facility] at [facility] [address] [facility] [address] [place] [address] Sena Dominguez PA [address] [facility] [place] [address] documented as of this encounter Visit Diagnoses Not on filedocumented in this encounter Care Teams Mathematician Research Relationship Specialty Start Date End Date Meme Steel MD [address] [place] [address] 105 [place] [address] PCP - General Pediatrics 06/05/18 04/25/22 No Pcp, Pcp PCP - General 06/08/22 07/19/22 Guadalupe Mcbride MD PCP - General Family Medicine 07/20/22 11/01/23 Sena Dominguez PA [address] [place] [address] [place] [address] PCP - BRADY Physician Flotation Operator 11/02/23 Levy Barry MD [address] [place] [address] [place] [address] PCP - General Family Medicine 12/20/23 documented as of this encounter
--- OUTSIDE RECORDS SUMMARY | 2025-08-08 14:37 | XMS_ITS | Encounter Summary ---
Author Organization [facility] work ([facility]) Address [address] [facility] [address] [place] [address] Care Team Providers Care Manager Marketing Name Role Phone Meme Steel MD Primary Care Provider [phone] Pcp, Pcp Primary Care Provider Unavailabl Guadalupe Bardales MD Primary Care Provider [phone] Sena Dominguez Unavailable [phone] Levy Barry MD Primary Care Provider Unavailab le Source Comments The information that you have received may contain highly confidential and/or federally protected health information. This information has been disclosed to you from records protected by [facility]. The law prohibits you [...] error, please contact the sender immediately.[facility] ([facility]) Encounter Details Date Type Department Care Team (Late st Contact Info) Description 01/16/2017 Historical Note [facility] [employer] System Devyn Vásquez MD [address] [place] [address] [phone] Social History Tobacco Use Types Packs/Day Years [...] LEATHA CARRILLO - [facility] [address] [facility] [address] [place] [phone] Brenda Clay MD [address] [employer] [address] [place] [phone] 04/15/2026 10:00 AM EDT Office Visit LEATHA [facility] at [facility] + [facility] [address] [facility] [address] [place] [address] Sena Dominguez PA [address] [facility] [place] [address] documented as of this encounter Visit Diagnoses Not on filedocumented in this encounter Care Teams Manager Marketing Relationship Specialty Start Date End Date Meme Steel MD [address] [place] [address] 105 [place] [address] PCP - General Pediatrics 06/05/18 04/25/22 No Pcp, Pcp PCP - General 06/08/22 07/19/22 Guadalupe Mcbride MD PCP - General Family Medicine 07/20/22 11/01/23 Sena Dominguez PA [address] [place] [address] [place] [address] PCP - BRADY Physician Supervisor Vendor Quality 11/02/23 Levy Barry MD [address] [place] [address] [place] [address] PCP - General Family Medicine 12/20/23 documented as of this encounter
--- OUTSIDE RECORDS SUMMARY | 2025-08-08 14:37 | XMS_ITS | Encounter Summary ---
Author Organization [facility] work ([facility]) Address [address] [place] [address] Care Team Providers Care Horticulture/Floriculture Teacher Name Role Phone Meme Steel MD Primary Care Provider [phone] Pcp, Pcp Primary Care Provider Unavailabl Guadalupe Bardales MD Primary Care Provider [phone] Sena Dominguez Unavailable [phone] Levy Barry MD Primary Care Provider Unavailab le Source Comments The information that you have received may contain highly confidential and/or federally protected health information. This information has been disclosed to you from records protected by [facility]. The law prohibits [...] the sender immediately.[facility] ([facility]) Encounter Details Date Type Department Care Team (Late st Contact Info) Description 10/31/2017 Historical Note [facility] ADMETA System Devyn Vásquez MD [address] [place] [phone] Social History Tobacco Use Types Packs/Day Years [...] LEATHA CARRILLO - [facility] [address] [facility] [address] [place] [phone] Brenda Clay MD [address] [facility] [address] [place] [address] 04/15/2026 10:00 AM EDT Office Visit LEATHA Primary [facility] at [facility] + [facility] [address] [facility] [address] [place] [address] Sena Dominguez PA [address] [facility] [place] [address] documented as of this encounter Visit Diagnoses Not on filedocumented in this encounter Care Teams Horticulture/Floriculture Teacher Relationship Specialty Start Date End Date Meme Steel MD [address] [place] [address] 105 [place] [address] PCP - General Pediatrics 06/05/18 04/25/22 No Pcp, Pcp PCP - General 06/08/22 07/19/22 Guadalupe Mcbride MD PCP - General Family Medicine 07/20/22 11/01/23 Sena Dominguez PA [address] [place] [address] [place] [address] PCP - BRADY Physician Theoretical Physicist 11/02/23 Levy aBrry MD [address] [place] [address] [place] [address] PCP - General Family Medicine 12/20/23 documented as of this encounter
--- OUTSIDE RECORDS SUMMARY | 2025-08-08 14:37 | XMS_ITS | Encounter Summary ---
Author Organization [facility] work ([facility]) Address [address] [place] [address] Care Team Providers Care Immigration Case Manager Name Role Phone Meme Steel MD Primary Care Provider [phone] Pcp, Pcp Primary Care Provider Unavailabl Guadalupe Bardales MD Primary Care Provider [phone] Sena Dominguez Unavailable [phone] Levy Barry MD Primary Care Provider Unavailab le Source Comments The information that you have received may contain highly confidential and/or federally protected health information. This information has been disclosed to you from records protected by [employer] [facility]. The law prohibits you from [...] please contact the sender immediately.[facility] ([facility]) Encounter Details Date Type Department Care Team (Late st Contact Info) Description 03/09/2017 Historical Note [facility] Seismic Software System Devyn Vásquez MD [address] [place] [address] [phone] Social History Tobacco Use Types Packs/Day Years [...] Visit LEATHA CARRILLO - [facility] [address] [facility] [address] [place] [phone] Brenda Clay MD [address] [facility] [address] [place] [address] 04/15/2026 10:00 AM EDT Office Visit LEATHA [facility] at [facility] + [facility] [address] [facility] [address] [place] [address] Sena Dominguez PA [address] [facility] [place] [address] documented as of this encounter Visit Diagnoses Not on filedocumented in this encounter Care Teams Immigration Case Manager Relationship Specialty Start Date End Date Meme Steel MD [address] [place] [address] 105 [place] [address] PCP - General Pediatrics 06/05/18 04/25/22 No Pcp, Pcp PCP - General 06/08/22 07/19/22 Guadalupe Mcbride MD PCP - General Family Medicine 07/20/22 11/01/23 Sena Dominguez PA [address] [place] [address] [place] [address] PCP - BRADY Physician Workplace Trainer And Assessor 11/02/23 Levy Barry MD [address] [place] [address] [place] [address] PCP - General Family Medicine 12/20/23 documented as of this encounter
--- OUTSIDE RECORDS SUMMARY | 2025-08-08 14:37 | XMS_ITS | Encounter Summary ---
Author Organization [facility] work ([facility]) Address [address] [place] [address] Care Team Providers Care Optometrist/Practice Owner Name Role Phone Meme Steel MD Primary Care Provider [phone] No Pcp, Pcp Primary Care Provider Unavailabl Guadalupe Bardales MD Primary Care Provider [phone] Sena Dominguez Unavailable [phone] Levy Barry MD Primary Care Provider Unavailab le Source Comments The information that you have received may contain highly confidential and/or federally protected health information. This information has been disclosed to you from records protected by [facility]. The law prohibits you [...] please contact the sender immediately.[facility] ([facility]) Encounter Details Date Type Department Care Team (Late st Contact Info) Description 11/25/2010 Historical Note [facility] [employer]inars System Devyn Vásquez MD [address] [place] [address] [phone] Social History Tobacco Use Types Packs/Day Years [...] LEATHA CARRILLO - [facility] [address] [facility] [address] [place] [phone] Brenda Clay MD [address] [facility] [address] [place] [address] 04/15/2026 10:00 AM EDT Office Visit LEATHA [facility] at [facility] [address] [facility] [address] [place] [address] Sena Dominguez PA [address] [facility] [place] [address] documented as of this encounter Visit Diagnoses Not on filedocumented in this encounter Care Teams Optometrist/Practice Owner Relationship Specialty Start Date End Date Meme Steel MD [address] [place] [address] 105 [place] [address] PCP - General Pediatrics 06/05/18 04/25/22 No Pcp, Pcp PCP - General 06/08/22 07/19/22 Guadalupe Mcbride MD PCP - General Family Medicine 07/20/22 11/01/23 Sena Dominguez PA [address] [place] [address] [place] [address] PCP - BRADY Physician Agriculture Inspector 11/02/23 Levy Barry MD [address] [place] [address] [place] [address] PCP - General Family Medicine 12/20/23 documented as of this encounter
--- OUTSIDE RECORDS SUMMARY | 2025-08-08 14:37 | XMS_ITS | Encounter Summary ---
Author Organization [facility] work ([facility]) Address [address] [place] [address] Care Team Providers Care Nipping Machine Operator Name Role Phone Meme Steel MD Primary Care Provider No Pcp, Pcp Primary Care Provider Unavailabl Guadalupe Bardales MD Primary Care Provider [phone] Sena Dominguez Unavailable [phone] Levy Barry MD Primary Care Provider Unavailab le Source Comments The information that you have received may contain highly confidential and/or federally protected health information. This information has been disclosed to you from records protected by [facility]. The law prohibits you [...] contact the sender immediately.[facility] ([facility]) Encounter Details Date Type Department Care Team (Late st Contact Info) Description 09/10/2012 Historical Note [facility] [employer] System Devyn Vásquez MD [address] [place] [address] [phone] Social History Tobacco Use Types Packs/Day Years [...] Visit LEATHA CARRILLO - [facility] [address] [place] [phone] Brenda Clay MD [address] [facility] [address] [place] [address] 04/15/2026 10:00 AM EDT Office Visit [facility] + [facility] [address] [place] [address] Sena Dominguez PA [address] [facility] [place] [address] documented as of this encounter Visit Diagnoses Not on filedocumented in this encounter Care Teams Nipping Machine Operator Relationship Specialty Start Date End Date Meme Steel MD [address] [place] [address] 105 [place] [address] PCP - General Pediatrics 06/05/18 04/25/22 No Pcp, Pcp PCP - General 06/08/22 07/19/22 Guaadlupe Mcbride MD PCP - General Family Medicine 07/20/22 11/01/23 Sena Dominguez PA [address] [place] [address] [place] [address] PCP - BRADY Physician Wire Rope Fabrication Supervisor 11/02/23 Levy Barry MD [address] [place] [address] [place] [address] PCP - General Family Medicine 12/20/23 documented as of this encounter
--- OUTSIDE RECORDS SUMMARY | 2025-08-08 14:37 | XMS_ITS | Encounter Summary ---
Author Organization [facility] work ([facility]) Address [address] [place] [address] Care Team Providers Care Normalizer Name Role Phone Meme Steel MD Primary Care Provider [phone] Pcp, Pcp Primary Care Provider Unavailabl Guadalupe Bardales MD Primary Care Provider [phone] Sena Dominguez Unavailable [phone] Levy Barry MD Primary Care Provider Unavailab le Source Comments The information that you have received may contain highly confidential and/or federally protected health information. This information has been disclosed to you from records protected by [facility]. The law prohibits you [...] the sender immediately.[facility] ([facility]) Encounter Details Date Type Department Care Team (Late st Contact Info) Description 03/09/2017 Historical Note [facility] [employer] System Devyn Vásquez MD [address] [place] [address] [phone] Social History Tobacco Use Types Packs/Day Years [...] LEATHA CARRILLO - [facility] [address] [facility] [address] [place] [phone] Brenda Clay MD [address] [facility] [address] [place] [phone] 04/15/2026 10:00 AM EDT Office Visit [facility] at [facility] + [facility] [address] [place] [address] Sena Dominguez PA [address] [place] [address] documented as of this encounter Visit Diagnoses Not on filedocumented in this encounter Care Teams Normalizer Relationship Specialty Start Date End Date Meme Steel MD [address] [place] [address] 105 [place] [address] PCP - General Pediatrics 06/05/18 04/25/22 No Pcp, Pcp PCP - General 06/08/22 07/19/22 Guadalupe Mcbride MD PCP - General Family Medicine 07/20/22 11/01/23 Sena Dominguez PA [address] [place] [address] [place] [address] PCP - BRADY Physician Level Vial Inside Grinder 11/02/23 Levy Barry MD [address] [place] [address] [place] [address] PCP - General Family Medicine 12/20/23 documented as of this encounter
--- OUTSIDE RECORDS SUMMARY | 2025-08-08 14:37 | XMS_ITS | Encounter Summary ---
Author Organization [facility] work ([facility]) Address [address] [place] [address] Care Team Providers Care Alliance Manager Name Role Phone Meme Steel MD Primary Care Provider [phone] Pcp, Pcp Primary Care Provider Unavailabl Guadalupe Bardales MD Primary Care Provider [phone] Sena Dominguez Unavailable [phone] Levy Barry MD Primary Care Provider Unavailab le Source Comments The information that you have received may contain highly confidential and/or federally protected health information. This information has been disclosed to you from records protected by [employer]. The law prohibits you [...] contact the sender immediately.[facility] ([facility]) Encounter Details Date Type Department Care Team (Late st Contact Info) Description 11/04/2005 Historical Note [facility] [employer] System Devyn Vásquez MD [address] [place] [address] [phone] Social History Tobacco Use Types Packs/Day Years [...] Visit LEATHA CARRILLO - [facility] [address] [facility] [address] [place] [phone] Brenda Clay MD [address] [facility] [address] [place] [phone] 04/15/2026 10:00 AM EDT Office Visit [facility]HA [facility] at [facility] + [facility] [address] [facility] [address] [place] [address] Sena Dominguez PA [address] [facility] [place] [address] documented as of this encounter Visit Diagnoses Not on filedocumented in this encounter Care Teams Alliance Manager Relationship Specialty Start Date End Date Meme Steel MD [address] [place] [address] 105 [place] [address] PCP - General Pediatrics 06/05/18 04/25/22 No Pcp, Pcp PCP - General 06/08/22 07/19/22 Guadalupe Mcbride MD PCP - General Family Medicine 07/20/22 11/01/23 Sena Dominguez PA [address] [place] [address] [place] [address] PCP - BRADY Physician Imaging Center Manager 11/02/23 Levy Barry MD [address] [place] [address] [place] [address] PCP - General Family Medicine 12/20/23 documented as of this encounter
--- OUTSIDE RECORDS SUMMARY | 2025-08-08 14:37 | XMS_ITS | Encounter Summary ---
Author Organization [facility] work ([facility]) Address [address] [place] [address] Care Team Providers Care Agency Legal Counsel Name Role Phone Meme Steel MD Primary Care Provider [phone] Pcp, Pcp Primary Care Provider Unavailabl Guadalupe Bardales MD Primary Care Provider [phone] Sena Dominguez Unavailable [phone] Levy Barry MD Primary Care Provider Unavailab le Source Comments The information that you have received may contain highly confidential and/or federally protected health information. This information has been disclosed to you from records protected by [facility]. The law prohibits you from [...] contact the sender immediately.[facility] ([facility]) Encounter Details Date Type Department Care Team (Late st Contact Info) Description 02/16/2012 Historical Note [facility] [employer] System Devyn Vásquez MD [address] [place] [address] [phone] Social History Tobacco Use Types Packs/Day Years [...] CARRILLO - [facility] at [facility] [address] [facility] [address] [place] [phone] Brenda Clay MD [address] [facility] [address] [place] [phone] 04/15/2026 10:00 AM EDT Office Visit [facility]HA [facility] at [facility] + [facility] [address] [facility] [address] [place] [address] Sena Domniguez PA [address] [facility] [place] [address] documented as of this encounter Visit Diagnoses Not on filedocumented in this encounter Care Teams Agency Legal Counsel Relationship Specialty Start Date End Date Meme Steel MD [address] [place] [address] 105 [place] [address] PCP - General Pediatrics 06/05/18 04/25/22 No Pcp, Pcp PCP - General 06/08/22 07/19/22 uGadalupe Mcbride MD PCP - General Family Medicine 07/20/22 11/01/23 Sena Dominguez PA [address] [place] [address] [place] [address] PCP - BRADY Physician Pathology Lab Technician 11/02/23 Levy Barry MD [address] [place] [address] [place] [address] PCP - General Family Medicine 12/20/23 documented as of this encounter
--- OUTSIDE RECORDS SUMMARY | 2025-08-08 14:37 | XMS_ITS | Encounter Summary ---
Author Organization [facility] work ([facility]) Address [address] [place] [address] Care Team Providers Care Slps Name Role Phone Meme Steel MD Primary Care Provider [phone] Pcp, Pcp Primary Care Provider Unavailabl Guadalupe Bardales MD Primary Care Provider [phone] Sena Dominguez Unavailable [phone] Levy Barry MD Primary Care Provider Unavailab le Source Comments The information that you have received may contain highly confidential and/or federally protected health information. This information has been disclosed to you from records protected by [facility]. The [...] Contact Info) Description 02/08/2006 Historical Note [facility] [employer] System Devyn Vásquez MD [address] [place] [address] [phone] Social History Tobacco Use Types Packs/Day Years [...] CARRILLO - [facility] [address] [facility] [address] [place] [phone] Brenda Clay MD [address] [facility] [address] [place] [phone] 04/15/2026 10:00 AM EDT Office Visit [facility]HA [facility] at [facility] + [facility] [address] [facility] [address] [place] [address] Sena Dominguez PA [address] [facility] [place] [address] documented as of this encounter Visit Diagnoses Not on filedocumented in this encounter Care Teams Slps Relationship Specialty Start Date End Date Meme Steel MD [address] [place] [address] 105 [place] [address] PCP - General Pediatrics 06/05/18 04/25/22 No Pcp, Pcp PCP - General 06/08/22 07/19/22 Guadalupe Mcbride MD PCP - General Family Medicine 07/20/22 11/01/23 Sena Dominguez PA [address] [place] [address] [place] [address] PCP - BRADY Physician Centerless Grinding Machine Adjuster 11/02/23 Levy Barry MD [address] [place] [address] [place] [address] PCP - General Family Medicine 12/20/23 documented as of this encounter
--- OUTSIDE RECORDS SUMMARY | 2025-08-08 14:37 | XMS_ITS | Encounter Summary ---
Author Organization [facility] work ([facility]) Address [address] [place] [address] Care Team Providers Care Scowman Name Role Phone Meme Steel MD Primary Care Provider [phone] Pcp, Pcp Primary Care Provider Unavailabl Guadalupe Bardales MD Primary Care Provider [phone] Sena Dominguez Unavailable [phone] Levy Barry MD Primary Care Provider Unavailab le Source Comments The information that you have received may contain highly confidential and/or federally protected health information. This information has been disclosed to you from records protected by [facility]. The law prohibits you from [...] the sender immediately.[facility] ([facility]) Encounter Details Date Type Department Care Team (Late st Contact Info) Description 09/08/2011 Historical Note [facility] [employer] System Devyn Vásquez MD [address] [place] [address] [phone] Social History Tobacco Use Types Packs/Day Years [...] LEATHA CARRILLO - [facility] [address] [facility] [address] [place] [phone] Brenda Clay MD [address] [facility] [address] [place] [address] 04/15/2026 10:00 AM EDT Office Visit [facility]HA [facility] at [facility] + [facility] [address] [facility] [address] [place] [address] Sena Dominguez PA [address] [facility] [place] [address] documented as of this encounter Visit Diagnoses Not on filedocumented in this encounter Care Teams Scowman Relationship Specialty Start Date End Date Meme Steel MD [address] [place] [address] 105 [place] [address] PCP - General Pediatrics 06/05/18 04/25/22 No Pcp, Pcp PCP - General 06/08/22 07/19/22 Guadalupe Mcbride MD PCP - General Family Medicine 07/20/22 11/01/23 Sena Dominguez PA [address] [place] [address] [place] [address] PCP - BRADY Physician Maintenance Helper 11/02/23 Levy Barry MD [address] [place] [address] [place] [address] PCP - General Family Medicine 12/20/23 documented as of this encounter
--- OUTSIDE RECORDS SUMMARY | 2025-08-08 14:37 | XMS_ITS | Encounter Summary ---
Author Organization [facility] work ([facility]) Address [address] [place] [address] Care Team Providers Care Rn Clinical Research Name Role Phone Meme Steel MD Primary Care Provider [phone] Pcp, Pcp Primary Care Provider Unavailabl Guadalupe Bardales MD Primary Care Provider [phone] Sena Dominguez Unavailable [phone] Levy Barry MD Primary Care Provider Unavailab le Source Comments The information that you have received may contain highly confidential and/or federally protected health information. This information has been disclosed to you from records protected by [facility]. The law prohibits you from [...] contact the sender immediately.[facility] ([facility]) Encounter Details Date Type Department Care Team (Late st Contact Info) Description 11/07/2005 Historical Note [facility] [employer] System Devyn Vásquez MD [address] [place] [address] [phone] Social History Tobacco Use Types Packs/Day Years [...] LEATHA CARRILLO - [facility] [address] [facility] [address] [place] [phone] Brenda Clay MD [address] [facility] [address] [place] [phone] 04/15/2026 10:00 AM EDT Office Visit LEATHA [facility] at [facility] + [facility] [address] [facility] [address] [place] [address] Sena Dominguez PA [address] [facility] [place] [address] documented as of this encounter Visit Diagnoses Not on filedocumented in this encounter Care Teams Rn Clinical Research Relationship Specialty Start Date End Date Meme Steel MD [address] [place] [address] 105 [place] [address] PCP - General Pediatrics 06/05/18 04/25/22 No Pcp, Pcp PCP - General 06/08/22 07/19/22 Guadalupe Mcbride MD PCP - General Family Medicine 07/20/22 11/01/23 Sena Dominguez PA [address] [place] [address] [place] [address] PCP - BRADY Physician Voltage Regulator Assembler 11/02/23 Levy Barry MD [address] [place] [address] [place] [address] PCP - General Family Medicine 12/20/23 documented as of this encounter
--- OUTSIDE RECORDS SUMMARY | 2025-08-08 14:37 | XMS_ITS | Encounter Summary ---
Author Organization [facility] work ([facility]) Address [address] [place] [address] Care Team Providers Care Pewter Finisher Name Role Phone Meme Steel MD Primary Care Provider [phone] Pcp, Pcp Primary Care Provider Unavailabl Guadalupe Bardales MD Primary Care Provider [phone] Sena Dominguez Unavailable [phone] Levy Barry MD Primary Care Provider Unavailab le Source Comments The information that you have received may contain highly confidential and/or federally protected health information. This information has been disclosed to you from records protected by [facility]. The law prohibits you [...] contact the sender immediately.[facility] ([facility]) Encounter Details Date Type Department Care Team (Late st Contact Info) Description 04/15/2011 Historical Note [facility] [employer] System Devyn Vásquez MD [address] [place] [address] [phone] Social History Tobacco Use Types Packs/Day Years [...] LEATHA CARRILLO - [facility] [address] [facility] [address] [place] [phone] Brenda Clay MD [address] [facility] [address] [place] [phone] 04/15/2026 10:00 AM EDT Office Visit LEATHA [facility] at [facility] + [facility] [address] [facility] [address] [place] [address] Sena Dominguez PA [address] [facility] [place] [address] documented as of this encounter Visit Diagnoses Not on filedocumented in this encounter Care Teams Pewter Finisher Relationship Specialty Start Date End Date Meme Steel MD [address] [place] [address] 105 [place] [address] PCP - General Pediatrics 06/05/18 04/25/22 No Pcp, Pcp PCP - General 06/08/22 07/19/22 Guadalupe Mcbride MD PCP - General Family Medicine 07/20/22 11/01/23 Sena Dominguez PA [address] [place] [address] [place] [address] PCP - BRADY Physician Hot Sealing Machine Operator 11/02/23 Levy Barry MD [address] [place] [address] [place] [address] PCP - General Family Medicine 12/20/23 documented as of this encounter
--- OUTSIDE RECORDS SUMMARY | 2025-08-08 14:37 | XMS_ITS | Encounter Summary ---
Author Organization [facility] work ([facility]) Address [address] [place] [address] Care Team Providers Care Patent Attorney Name Role Phone Meme Steel MD Primary Care Provider [phone] No Pcp, Pcp Primary Care Provider Unavailabl Guadalupe Bardales MD Primary Care Provider Sena Dominguez Unavailable [phone] Levy Barry MD Primary Care Provider Unavailab le Source Comments The information that you have received may contain highly confidential and/or federally protected health information. This information has been disclosed to you from records protected by [employer] [facility]. The law prohibits you [...] error, please contact the sender immediately.[facility] ([facility]) Encounter Details Date Type Department Care Team (Late st Contact Info) Description 11/28/2005 Historical Note [facility] [employer] System Devyn Vásquez MD [address] [place] [address] [phone] Social History Tobacco Use Types Packs/Day Years [...] - [facility] [address] [facility] [address] [place] [phone] Brenda Clay MD [address] [facility] [address] [place] [phone] 04/15/2026 10:00 AM EDT Office Visit [facility] at [facility] [address] [facility] [address] [place] [address] Sena Dominguez PA [address] [facility] [place] [address] documented as of this encounter Visit Diagnoses Not on filedocumented in this encounter Care Teams Patent Attorney Relationship Specialty Start Date End Date Meme Steel MD [address] [place] [address] 105 [place] [address] PCP - General Pediatrics 06/05/18 04/25/22 No Pcp, Pcp PCP - General 06/08/22 07/19/22 Guadalupe Mcbride MD PCP - General Family Medicine 07/20/22 11/01/23 Sena Dominguez PA [address] [place] [address] [place] [address] PCP - BRADY Physician Contact Center Agent 11/02/23 Levy Barry MD [address] [place] [address] [place] [address] PCP - General Family Medicine 12/20/23 documented as of this encounter
--- OUTSIDE RECORDS SUMMARY | 2025-08-08 14:37 | XMS_ITS | Encounter Summary ---
Author Organization [facility] work ([facility]) Address [address] [place] [address] Care Team Providers Care Screen Tender Name Role Phone Meme Steel MD Primary Care Provider [phone] Pcp, Pcp Primary Care Provider Unavailabl Guadalupe Bardales MD Primary Care Provider [phone] Sena Dominguez Unavailable [phone] Levy Barry MD Primary Care Provider Unavailab le Source Comments The information that you have received may contain highly confidential and/or federally protected health information. This information has been disclosed to you from records protected by [facility]. The law prohibits you from [...] contact the sender immediately.[facility] ([facility]) Encounter Details Date Type Department Care Team (Late st Contact Info) Description 10/31/2017 Historical Note [facility] Reply[employer] System Devyn Vásquez MD [address] [place] [address] [phone] Social History Tobacco Use Types Packs/Day Years [...] LEATHA CARRILLO - [facility] [address] [facility] [address] [place] [phone] Brenda Clay MD [address] [facility] [address] [place] [address] 04/15/2026 10:00 AM EDT Office Visit LE[facility]HA [facility] at [facility] + [facility] [address] [facility] [address] [place] [address] Sena Dominguez PA [address] [facility] [place] [address] documented as of this encounter Visit Diagnoses Not on filedocumented in this encounter Care Teams Screen Tender Relationship Specialty Start Date End Date Meme Steel MD [address] [place] [address] 105 [place] [address] PCP - General Pediatrics 06/05/18 04/25/22 No Pcp, Pcp PCP - General 06/08/22 07/19/22 Guadalupe Mcbride MD PCP - General Family Medicine 07/20/22 11/01/23 Sena Dominguez PA [address] [place] [address] [place] [address] PCP - BRADY Physician Coal Hauler 11/02/23 Levy Barry MD [address] [place] [address] [place] [address] PCP - General Family Medicine 12/20/23 documented as of this encounter
--- OUTSIDE RECORDS SUMMARY | 2025-08-08 14:37 | XMS_ITS | Encounter Summary ---
Author Organization [facility] work ([facility]) Address [address] [place] [address] Care Team Providers Care Bridge Tender Name Role Phone Meme Steel MD Primary Care Provider [phone] Pcp, Pcp Primary Care Provider Unavailabl Guadalupe Bardales MD Primary Care Provider [phone] Sena Dominguez Unavailable [phone] Levy Barry MD Primary Care Provider Unavailab le Source Comments The information that you have received may contain highly confidential and/or federally protected health information. This information has been disclosed to you from records protected by [facility]. The law prohibits you from making [...] please contact the sender immediately.[facility] ([facility]) Encounter Details Date Type Department Care Team (Late st Contact Info) Description 11/03/2005 Historical Note [facility] [employer] [facility] Devyn Vásquez MD [address] [place] [address] [phone] Social History Tobacco Use Types Packs/Day Years [...] CARRILLO - [facility] [address] [facility] [address] [place] [phone] Brenda Clay MD [address] [facility] [address] [place] [address] 04/15/2026 10:00 AM EDT Office Visit [facility] at [facility] + [facility] [address] [place] [address] Sena Dominguez PA [address] [facility] [place] [address] documented as of this encounter Visit Diagnoses Not on filedocumented in this encounter Care Teams Bridge Tender Relationship Specialty Start Date End Date Meme Steel MD [address] [place] [address] [place] [address] PCP - General Pediatrics 06/05/18 04/25/22 No Pcp, Pcp PCP - General 06/08/22 07/19/22 Guadalupe Mcbride MD PCP - General Family Medicine 07/20/22 11/01/23 Sena Dominguez PA [address] [place] [address] [place] [address] PCP - BRADY Physician Director Oracle Database 11/02/23 Levy Barry MD [address] [place] [address] [place] [address] PCP - General Family Medicine 12/20/23 documented as of this encounter
--- OUTSIDE RECORDS SUMMARY | 2025-08-08 14:37 | XMS_ITS | Encounter Summary ---
Author Organization [facility] work ([facility]) Address [address] [place] [address] Care Team Providers Care Computer Networker Name Role Phone Meme Steel MD Primary Care Provider [phone] Pcp, Pcp Primary Care Provider Unavailabl Guadalupe Bardales MD Primary Care Provider [phone] Sena Dominguez Unavailable [phone] Levy Barry MD Primary Care Provider Unavailab le Source Comments The information that you have received may contain highly confidential and/or federally protected health information. This information has been disclosed to you from records protected by [facility]. The law prohibits you from [...] contact the sender immediately.[facility] ([facility]) Encounter Details Date Type Department Care Team (Late st Contact Info) Description 11/06/2005 Historical Note [facility] [employer] System Devyn Vásquez MD [address] [place] [address] [phone] Social History Tobacco Use Types Packs/Day Years [...] - [facility] [address] [facility] [address] [place] [phone] Brenda Clay MD [address] [facility] [address] [place] [address] 04/15/2026 10:00 AM EDT Office Visit [facility] at [facility] + [facility] [address] [facility] [place] [address] Sena Dominguez PA [address] [facility] [place] [address] documented as of this encounter Visit Diagnoses Not on filedocumented in this encounter Care Teams Computer Networker Relationship Specialty Start Date End Date Meme Steel MD [address] [place] [address] 105 [place] [address] PCP - General Pediatrics 06/05/18 04/25/22 No Pcp, Pcp PCP - General 06/08/22 07/19/22 Guadalupe Mcbride MD PCP - General Family Medicine 07/20/22 11/01/23 Sena Dominguez PA [address] [place] [address] [place] [address] PCP - BRADY Physician Customer Solutions Architect 11/02/23 Levy Barry MD [address] [place] [address] [place] [address] PCP - General Family Medicine 12/20/23 documented as of this encounter
--- OUTSIDE RECORDS SUMMARY | 2025-08-08 14:38 | XMS_ITS | Encounter Summary ---
Author Organization [facility] work ([facility]) Address [address] [place] [address] Care Team Providers Care Roll Up Guider Operator Name Role Phone Meme Steel MD Primary Care Provider [phone] Pcp, Pcp Primary Care Provider Unavailabl Guadalupe Bardales MD Primary Care Provider [phone] Sena Dominguez Unavailable Levy Barry MD Primary Care Provider Unavailab le Source Comments The information that you have received may contain highly confidential and/or federally protected health information. This information has been disclosed to you from records protected by [facility]. The law prohibits [...] contact the sender immediately.[facility] ([facility]) Encounter Details Date Type Department Care Team (Late st Contact Info) Description 06/02/2005 Historical Note [facility] [employer] System Devyn Vásquez MD [address] [place] [address] [phone] Social History Tobacco Use Types Packs/Day Years [...] Visit LEATHA CARRILLO - [facility] [address] [facility] [address] [place] [phone] Brenda Clay MD [address] [facility] [address] [place] [phone] 04/15/2026 10:00 AM EDT Office Visit [facility]HA [facility] at [facility] + [facility] [address] [place] [address] Sena Dominguez PA [address] [facility] [place] [address] documented as of this encounter Visit Diagnoses Not on filedocumented in this encounter Care Teams Roll Up Guider Operator Relationship Specialty Start Date End Date Meme Steel MD [address] [place] [address] 105 [place] [address] PCP - General Pediatrics 06/05/18 04/25/22 No Pcp, Pcp PCP - General 06/08/22 07/19/22 Guadalupe Mcbride MD PCP - General Family Medicine 07/20/22 11/01/23 Sena Dominguez PA [address] [place] [address] [place] [address] PCP - BRADY Physician Plate Sensitizer 11/02/23 Levy Barry MD [address] [place] [address] [place] [address] PCP - General Family Medicine 12/20/23 documented as of this encounter
--- OUTSIDE RECORDS SUMMARY | 2025-08-08 14:38 | XMS_ITS | Encounter Summary ---
Author Organization [facility] work ([facility]) Address [address] [place] [address] Care Team Providers Care Print Color Operator Name Role Phone Meme Steel MD Primary Care Provider [phone] Pcp, Pcp Primary Care Provider Unavailabl Guadalupe Bardales MD Primary Care Provider [phone] Sena Dominguez Unavailable [phone] Levy Barry MD Primary Care Provider Unavailab le Source Comments The information that you have received may contain highly confidential and/or federally protected health information. This information has been disclosed to you from records protected by [facility]. The law prohibits you [...] contact the sender immediately.[facility] ([facility]) Encounter Details Date Type Department Care Team (Late st Contact Info) Description 05/31/2005 Historical Note [facility] [employer] System Devyn Vásquez MD [address] [place] [address] [phone] Social History Tobacco Use Types Packs/Day Years [...] Visit LEATHA CARRILLO - [facility] [address] [facility] [address] [place] [phone] Brenda Clay MD [address] [facility] [address] [place] [address] 04/15/2026 10:00 AM EDT Office Visit LEATHA Primary [facility] at [facility] [address] [facility] [address] [place] [address] Sena Dominguez PA [address] [facility] [place] [address] documented as of this encounter Visit Diagnoses Not on filedocumented in this encounter Care Teams Print Color Operator Relationship Specialty Start Date End Date Meme Steel MD [address] [place] [address] 105 [place] [address] PCP - General Pediatrics 06/05/18 04/25/22 No Pcp, Pcp PCP - General 06/08/22 07/19/22 Guadalupe Mcbride MD PCP - General Family Medicine 07/20/22 11/01/23 Sena Dominguez PA [address] [place] [address] [place] [address] PCP - BRADY Physician Fire Support Specialist 11/02/23 Levy Barry MD [address] [place] [address] [place] [address] PCP - General Family Medicine 12/20/23 documented as of this encounter
--- OUTSIDE RECORDS SUMMARY | 2025-08-08 14:38 | XMS_ITS | Encounter Summary ---
Author Organization [facility] work ([facility]) Address [address] [place] [address] Care Team Providers Care Switchboard Operator Receptionist Name Role Phone Meme Steel MD Primary Care Provider [phone] Pcp, Pcp Primary Care Provider Unavailabl Guadalupe Bardales MD Primary Care Provider [phone] Sena Dominguez Unavailable [phone] Levy Barry MD Primary Care Provider Unavailab le Source Comments The information that you have received may contain highly confidential and/or federally protected health information. This information has been disclosed to you from records protected by [facility]. The law prohibits you [...] contact the sender immediately.[facility] ([facility]) Encounter Details Date Type Department Care Team (Late st Contact Info) Description 06/14/2011 Historical Note [facility] [employer] System Devyn Vásquez MD [address] [place] [address] [phone] Social History Tobacco Use Types Packs/Day Years [...] CARRILLO - [facility] [address] [facility] [address] [place] [phone] Brenda Clay MD [address] [facility] [address] [place] [address] 04/15/2026 10:00 AM EDT Office Visit LEATHA Primary [facility] at [facility] + [facility] [address] [place] [address] Sena Dominguez PA [address] [facility] [place] [address] documented as of this encounter Visit Diagnoses Not on filedocumented in this encounter Care Teams Switchboard Operator Receptionist Relationship Specialty Start Date End Date Meme Steel MD [address] [place] [address] 105 [place] [address] PCP - General Pediatrics 06/05/18 04/25/22 No Pcp, Pcp PCP - General 06/08/22 07/19/22 Guadalupe Mcbride MD PCP - General Family Medicine 07/20/22 11/01/23 Sena Dominguez PA [address] [place] [address] [place] [address] PCP - BRADY Physician Cell Installer 11/02/23 Levy Barry MD [address] [place] [address] [place] [address] PCP - General Family Medicine 12/20/23 documented as of this encounter
--- OUTSIDE RECORDS SUMMARY | 2025-08-08 14:38 | XMS_ITS | Encounter Summary ---
Author Organization [facility] work ([facility]) Address [address] [place] [address] Care Team Providers Care Boiler Mechanic Name Role Phone Meme Steel MD Primary Care Provider [phone] Pcp, Pcp Primary Care Provider Unavailabl Guadalupe Bardales MD Primary Care Provider [phone] Sena Dominguez Unavailable [phone] Levy Barry MD Primary Care Provider Unavailab le Source Comments The information that you have received may contain highly confidential and/or federally protected health information. This information has been disclosed to you from records protected by [facility]. The law prohibits you from [...] please contact the sender immediately.[facility] ([facility]) Encounter Details Date Type Department Care Team (Late st Contact Info) Description 03/29/2016 Historical Note [facility] [employer] System Devyn Vásquez MD [address] [place] [address] [phone] Social History Tobacco Use Types Packs/Day Years [...] Visit LEATHA CARRILLO - [facility] [address] [facility] [address] [place] [phone] Brenda Clay MD [address] [facility] [address] [place] [address] 04/15/2026 10:00 AM EDT Office Visit LEATHA [facility] at [facility] + [facility] [address] [facility] [address] [place] [address] Sena Dominguez PA [address] [facility] [place] [address] documented as of this encounter Visit Diagnoses Not on filedocumented in this encounter Care Teams Boiler Mechanic Relationship Specialty Start Date End Date Meme Steel MD [address] [place] [address] 105 [place] [address] PCP - General Pediatrics 06/05/18 04/25/22 No Pcp, Pcp PCP - General 06/08/22 07/19/22 Guadalupe Mcbride MD PCP - General Family Medicine 07/20/22 11/01/23 Sena Dominguez PA [address] [place] [address] [place] [address] PCP - BRADY Physician Shell Fisherman 11/02/23 Levy Barry MD [address] [place] [address] [place] [address] PCP - General Family Medicine 12/20/23 documented as of this encounter
--- OUTSIDE RECORDS SUMMARY | 2025-08-08 14:38 | XMS_ITS | Encounter Summary ---
Author Organization [facility] work ([facility]) Address [address] [place] [address] Care Team Providers Care Breakfast Manager Name Role Phone Meme Steel MD Primary Care Provider [phone] Pcp, Pcp Primary Care Provider Unavailabl Guadalupe Bardales MD Primary Care Provider [phone] Sena Dominguez Unavailable [phone] Levy Barry MD Primary Care Provider Unavailab le Source Comments The information that you have received may contain highly confidential and/or federally protected health information. This information has been disclosed to you from records protected by [facility]. The law prohibits you [...] Contact Info) Description 09/10/2009 Historical Note [facility] [employer] [facility] Devyn Vásquez MD [address] [place] [address] [phone] Social History Tobacco Use Types Packs/Day Years [...] LEATHA CARRILLO - [facility] [address] [facility] [address] [place] [phone] Brenda Clay MD [address] [facility] [address] [place] [address] 04/15/2026 10:00 AM EDT Office Visit LEATHA [facility] at [facility] + [facility] [address] [facility] [address] [place] [address] Sena Dominguez PA [address] [facility] [place] [address] documented as of this encounter Visit Diagnoses Not on filedocumented in this encounter Care Teams Breakfast Manager Relationship Specialty Start Date End Date Meme Steel MD [address] [place] [address] 105 [place] [address] PCP - General Pediatrics 06/05/18 04/25/22 No Pcp, Pcp PCP - General 06/08/22 07/19/22 Guadalupe Mcbride MD PCP - General Family Medicine 07/20/22 11/01/23 Sena Dominguez PA [address] [place] [address] [place] [address] PCP - BRADY Physician Selling Underwriter 11/02/23 Levy Barry MD [address] [place] [address] [place] [address] PCP - General Family Medicine 12/20/23 documented as of this encounter
--- OUTSIDE RECORDS SUMMARY | 2025-08-08 14:38 | XMS_ITS | Encounter Summary ---
Author Organization [facility] work ([facility]) Address [address] [place] [address] Care Team Providers Care Usability Architect Name Role Phone Meme Steel MD Primary Care Provider No Pcp, Pcp Primary Care Provider Unavailabl Guadalupe Bardales MD Primary Care Provider [phone] Sena Dominguez Unavailable [phone] Levy Barry MD Primary Care Provider Unavailab le Source Comments The information that you have received may contain highly confidential and/or federally protected health information. This information has been disclosed to you from records protected by [facility]. The law prohibits [...] error, please contact the sender immediately.[facility] ([facility]) Encounter Details Date Type Department Care Team (Late st Contact Info) Description 08/13/2009 Historical Note [facility] [employer] System Devyn Vásquez MD [address] [place] [address] [phone] Social History Tobacco Use Types Packs/Day Years [...] LEATHA CARRILLO - [facility] [address] [facility] [address] [place] [phone] Brenda Clay MD [address] [facility] [address] [place] [address] 04/15/2026 10:00 AM EDT Office Visit LEATHA Primary [facility] at [facility] + [facility] [address] [facility] [address] [place] [address] Sena Dominguez PA [address] [facility] [place] [address] documented as of this encounter Visit Diagnoses Not on filedocumented in this encounter Care Teams Usability Architect Relationship Specialty Start Date End Date Meme Steel MD [address] [place] [address] 105 [place] [address] PCP - General Pediatrics 06/05/18 04/25/22 No Pcp, Pcp PCP - General 06/08/22 07/19/22 Guadalupe Mcbride MD PCP - General Family Medicine 07/20/22 11/01/23 Sena Dominguez PA [address] [place] [address] [place] [address] PCP - BRADY Physician Heavy Equipment Rental Manager 11/02/23 Levy Barry MD [address] [place] [address] [place] [address] PCP - General Family Medicine 12/20/23 documented as of this encounter
--- OUTSIDE RECORDS SUMMARY | 2025-08-08 14:38 | XMS_ITS | Encounter Summary ---
Author Organization [facility] work ([facility]) Address [address] [place] [address] Care Team Providers Care Director Of Head Start Name Role Phone Meme Steel MD Primary Care Provider [phone] Pcp, Pcp Primary Care Provider Unavailabl Guadalupe Bardales MD Primary Care Provider [phone] Sena Dominguez Unavailable [phone] Levy Barry MD Primary Care Provider Unavailab le Source Comments The information that you have received may contain highly confidential and/or federally protected health information. This information has been disclosed to you from records protected by [facility]. The law prohibits you from making [...] please contact the sender immediately.[facility] ([facility]) Encounter Details Date Type Department Care Team (Late st Contact Info) Description 03/09/2016 Historical Note [facility] [employer] System Devyn Vásquez MD [address] [place] [address] [phone] Social History Tobacco Use Types Packs/Day Years [...] CARRILLO - [facility] at [facility] [address] [facility] [address] [place] [phone] Brenda Clay MD [address] [facility] [address] [place] [address] 04/15/2026 10:00 AM EDT Office Visit LEATHA [facility] at [facility] + [facility] [address] [facility] [address] [place] [address] Sena Dominguez PA [address] [facility] [place] [address] documented as of this encounter Visit Diagnoses Not on filedocumented in this encounter Care Teams Director Of Head Start Relationship Specialty Start Date End Date Meme Steel MD [address] [place] [address] 105 [place] [address] PCP - General Pediatrics 06/05/18 04/25/22 No Pcp, Pcp PCP - General 06/08/22 07/19/22 Guadalupe Mcbride MD PCP - General Family Medicine 07/20/22 11/01/23 Sena Dominguez PA [address] [place] [address] [place] [address] PCP - BRADY Physician Inspector Eyeglass 11/02/23 Levy Barry MD [address] [place] [address] [place] [address] PCP - General Family Medicine 12/20/23 documented as of this encounter
--- OUTSIDE RECORDS SUMMARY | 2025-08-08 14:38 | XMS_ITS | Encounter Summary ---
Author Organization [facility] work ([facility]) Address [address] [place] [address] Care Team Providers Care Education Intern Name Role Phone Meme Steel MD Primary Care Provider [phone] No Pcp, Pcp Primary Care Provider Unavailabl Guadalupe Bardales MD Primary Care Provider [phone] Sena Dominguez Unavailable [phone] Levy Barry MD Primary Care Provider Unavailab le Source Comments The information that you have received may contain highly confidential and/or federally protected health information. This information has been disclosed to you from records protected by [employer]. The law prohibits you from [...] contact the sender immediately.[facility] ([facility]) Encounter Details Date Type Department Care Team (Late st Contact Info) Description 11/10/2005 Historical Note [facility] [employer] System Devyn Vásquez MD [address] [place] [address] [phone] Social History Tobacco Use Types Packs/Day Years [...] CARRILLO - [facility] [address] [facility] [address] [place] [phone] Brenda Clay MD [address] [facility] [address] [place] [address] 04/15/2026 10:00 AM EDT Office Visit LEATHA [facility] at [facility] + [facility] [address] [facility] [address] [place] [address] Sena Dominguez PA [address] [facility] [place] [address] documented as of this encounter Visit Diagnoses Not on filedocumented in this encounter Care Teams Education Intern Relationship Specialty Start Date End Date Meme Steel MD [address] [place] [address] 105 [place] [address] PCP - General Pediatrics 06/05/18 04/25/22 No Pcp, Pcp PCP - General 06/08/22 07/19/22 Guadalupe Mcbride MD PCP - General Family Medicine 07/20/22 11/01/23 Sena Dominguez PA [address] [place] [address] [place] [address] PCP - BRADY Physician Aviation Maintenance Technician 11/02/23 Levy Barry MD [address] [place] [address] [place] [address] PCP - General Family Medicine 12/20/23 documented as of this encounter
--- OUTSIDE RECORDS SUMMARY | 2025-08-08 14:38 | XMS_ITS | Encounter Summary ---
Author Organization [facility] work ([facility]) Address [address] [place] [address] Care Team Providers Care Finish Remover Name Role Phone Meme Steel MD Primary Care Provider [phone] No Pcp, Pcp Primary Care Provider Unavailabl Guadalupe Bardales MD Primary Care Provider [phone] Sena Dominguez Unavailable [phone] Levy Barry MD Primary Care Provider Unavailab le Source Comments The information that you have received may contain highly confidential and/or federally protected health information. This information has been disclosed to you from records protected by [facility]. The law prohibits you [...] please contact the sender immediately.[facility] ([facility]) Encounter Details Date Type Department Care Team (Late st Contact Info) Description 11/09/2005 Historical Note [facility] DueProps System Devyn Vásquez MD [address] [place] [address] [phone] Social History Tobacco Use Types Packs/Day Years [...] LEATHA CARRILLO - [facility] [address] [facility] [address] [place] [phone] Brenda Clay MD [address] [facility] [address] [place] [phone] 04/15/2026 10:00 AM EDT Office Visit [facility] [address] [facility] [address] [place] [address] Sena Dominguez PA [address] [facility] [place] [address] documented as of this encounter Visit Diagnoses Not on filedocumented in this encounter Care Teams Finish Remover Relationship Specialty Start Date End Date Meme Steel MD [address] [place] [address] [place] [address] PCP - General Pediatrics 06/05/18 04/25/22 No Pcp, Pcp PCP - General 06/08/22 07/19/22 Guadalupe Mcbride MD PCP - General Family Medicine 07/20/22 11/01/23 Sena Dominguez PA [address] [place] [address] [place] [address] PCP - BRADY Physician Benefits Assistant 11/02/23 Levy Barry MD [address] [place] [address] [place] [address] PCP - General Family Medicine 12/20/23 documented as of this encounter
--- OUTSIDE RECORDS SUMMARY | 2025-08-08 14:38 | XMS_ITS | Encounter Summary ---
Author Organization [facility] work ([facility]) Address [address] [place] [address] Care Team Providers Care Turpentiner Name Role Phone Meme Steel MD Primary Care Provider [phone] Pcp, Pcp Primary Care Provider Unavailabl Guadalupe Bardales MD Primary Care Provider [phone] Sena Dominguez Unavailable [phone] Levy Barry MD Primary Care Provider Unavailab le Source Comments The information that you have received may contain highly confidential and/or federally protected health information. This information has been disclosed to you from records protected by [facility]. The law prohibits you from [...] contact the sender immediately.[facility] ([facility]) Encounter Details Date Type Department Care Team (Late st Contact Info) Description 09/01/2016 Historical Note [facility] [employer] System Devyn Vásquez MD [address] [place] [address] [phone] Social History Tobacco Use Types Packs/Day Years [...] LEATHA CARRILLO - [facility] [address] [facility] [address] [place] [phone] Brenda Clay MD [address] [facility] [address] [place] [address] 04/15/2026 10:00 AM EDT Office Visit [facility] [address] [facility] [address] [place] [address] Sena Dominguez PA [address] [facility] [place] [address] documented as of this encounter Visit Diagnoses Not on filedocumented in this encounter Care Teams Turpentiner Relationship Specialty Start Date End Date Meme Steel MD [address] [place] [address] 105 [place] [address] PCP - General Pediatrics 06/05/18 04/25/22 No Pcp, Pcp PCP - General 06/08/22 07/19/22 Guadalupe Mcbride MD PCP - General Family Medicine 07/20/22 11/01/23 Sena Dominguez PA [address] [place] [address] [place] [address] PCP - BRADY Physician Revenue Stamp Cutter 11/02/23 Levy Barry MD [address] [place] [address] [place] [address] PCP - General Family Medicine 12/20/23 documented as of this encounter
--- OUTSIDE RECORDS SUMMARY | 2025-08-08 14:38 | XMS_ITS | Encounter Summary ---
Author Organization [facility] work ([facility]) Address [address] [place] [address] Care Team Providers Care Mission Systems Engineer Name Role Phone Meme Steel MD Primary Care Provider [phone] Pcp, Pcp Primary Care Provider Unavailabl Guadalupe Bardales MD Primary Care Provider [phone] Sena Dominguez Unavailable [phone] Levy Barry MD Primary Care Provider Unavailab le Source Comments The information that you have received may contain highly confidential and/or federally protected health information. This information has been disclosed to you from records protected by [facility]. The law prohibits you from [...] please contact the sender immediately.[facility] ([facility]) Encounter Details Date Type Department Care Team (Late st Contact Info) Description 06/20/2005 Historical Note [facility] pyco System Devyn Vásquez MD [address] [place] [address] [phone] Social History Tobacco Use Types Packs/Day Years [...] LEATHA CARRILLO - [facility] [address] [facility] [address] [place] [phone] Brenda Clay MD [address] [facility] [address] [place] [phone] 04/15/2026 10:00 AM EDT Office Visit [facility]HA [facility] at [facility] + [facility] [address] [facility] [address] [place] [address] Sena Dominguez PA [address] [facility] [place] [address] documented as of this encounter Visit Diagnoses Not on filedocumented in this encounter Care Teams Mission Systems Engineer Relationship Specialty Start Date End Date Meme Steel MD [address] [place] [address] 105 [place] [address] PCP - General Pediatrics 06/05/18 04/25/22 No Pcp, Pcp PCP - General 06/08/22 07/19/22 Guadalupe Mcbride MD PCP - General Family Medicine 07/20/22 11/01/23 Sena Dominguez PA [address] [place] [address] [place] [address] PCP - BRADY Physician Underwriting Service Representative 11/02/23 Levy Barry MD [address] [place] [address] [place] [address] PCP - General Family Medicine 12/20/23 documented as of this encounter
--- OUTSIDE RECORDS SUMMARY | 2025-08-08 14:38 | XMS_ITS | Encounter Summary ---
Author Organization [facility] work ([facility]) Address [address] [place] [address] Care Team Providers Care Environmental Protection Geologist Name Role Phone Meme Steel MD Primary Care Provider [phone] Pcp, Pcp Primary Care Provider Unavailabl Guadalupe Bardales MD Primary Care Provider [phone] Sena Dominguez Unavailable [phone] Levy Barry MD Primary Care Provider Unavailab le Source Comments The information that you have received may contain highly confidential and/or federally protected health information. This information has been disclosed to you from records protected by [employer] [facility]. The law prohibits you [...] Contact Info) Description 08/13/2009 Historical Note [facility] [employer] System Devyn Vásquez MD [address] [place] [address] [phone] Social History Tobacco Use Types Packs/Day Years [...] LEATHA CARRILLO - [facility] [address] [facility] [address] [place] [phone] Brenda Clay MD [address] [facility] [address] [place] [address] 04/15/2026 10:00 AM EDT Office Visit [facility] [address] [facility] [address] [place] [address] Sena Dominguez PA [address] [facility] [place] [address] documented as of this encounter Visit Diagnoses Not on filedocumented in this encounter Care Teams Environmental Protection Geologist Relationship Specialty Start Date End Date Meme Steel MD [address] [place] [address] 105 [place] [address] PCP - General Pediatrics 06/05/18 04/25/22 No Pcp, Pcp PCP - General 06/08/22 07/19/22 Guadalupe Mcbride MD PCP - General Family Medicine 07/20/22 11/01/23 Sena Dominguez PA [address] [place] [address] [place] [address] PCP - BRADY Physician Silver Solderer 11/02/23 Levy Barry MD [address] [place] [address] [place] [address] PCP - General Family Medicine 12/20/23 documented as of this encounter
--- OUTSIDE RECORDS SUMMARY | 2025-08-08 14:38 | XMS_ITS | Encounter Summary ---
Author Organization [facility] work ([facility]) Address [address] [place] [address] Care Team Providers Care Supervisor Poultry Farm Name Role Phone Meme Steel MD Primary Care Provider No Pcp, Pcp Primary Care Provider Unavailabl Guadalupe Bardales MD Primary Care Provider [phone] Sena Dominguez Unavailable [phone] Levy Barry MD Primary Care Provider Unavailab le Source Comments The information that you have received may contain highly confidential and/or federally protected health information. This information has been disclosed to you from records protected by [employer]. The law prohibits you from making [...] please contact the sender immediately.[facility] ([facility]) Encounter Details Date Type Department Care Team (Late st Contact Info) Description 11/10/2005 Historical Note [facility] Concard System Devyn Vásquez MD [address] [place] [address] [phone] Social History Tobacco Use Types Packs/Day Years [...] Visit LEATHA CARRILLO - [facility] [address] [facility] [address] [place] [phone] Brenda Clay MD [address] [facility] [address] [place] [address] 04/15/2026 10:00 AM EDT Office Visit [facility] at [facility] [address] [facility] [address] [place] [address] Sena Dominguez PA [address] [facility] [place] [address] documented as of this encounter Visit Diagnoses Not on filedocumented in this encounter Care Teams Supervisor Poultry Farm Relationship Specialty Start Date End Date Meme Steel MD [address] [place] [address] 105 [place] [address] PCP - General Pediatrics 06/05/18 04/25/22 No Pcp, Pcp PCP - General 06/08/22 07/19/22 Guadalupe Mcbride MD PCP - General Family Medicine 07/20/22 11/01/23 Sena Dominguez PA [address] [place] [address] [place] [address] PCP - BRADY Physician Sales Assistants And Salespersons 11/02/23 Levy Barry MD [address] [place] [address] [place] [address] PCP - General Family Medicine 12/20/23 documented as of this encounter
--- OUTSIDE RECORDS SUMMARY | 2025-08-08 14:38 | XMS_ITS | Encounter Summary ---
Author Organization [facility] work ([facility]) Address [address] [place] [address] Care Team Providers Care Associate Civil Engineer Name Role Phone Meme Steel MD Primary Care Provider [phone] No Pcp, Pcp Primary Care Provider Unavailabl Guadalupe Bardales MD Primary Care Provider [phone] Sena Dominguez Unavailable [phone] Levy Barry MD Primary Care Provider Unavailab le Source Comments The information that you have received may contain highly confidential and/or federally protected health information. This information has been disclosed to you from records protected by [facility]. The law prohibits you [...] the sender immediately.[facility] ([facility]) Encounter Details Date Type Department Care Team (Late st Contact Info) Description 08/13/2009 Historical Note [facility] Funding Options System Devyn Vásquez MD [address] [place] [address] [phone] Social History Tobacco Use Types Packs/Day Years [...] Visit LEATHA CARRILLO - [facility] [address] [facility] [address] [place] [phone] Brenda Clay MD [address] [facility] [address] [place] [address] 04/15/2026 10:00 AM EDT Office Visit [facility]HA [facility] at [facility] + [facility] [address] [facility] [address] [place] [address] Sena Dominguez PA [address] [facility] [place] [address] documented as of this encounter Visit Diagnoses Not on filedocumented in this encounter Care Teams Associate Civil Engineer Relationship Specialty Start Date End Date Meme Steel MD [address] [place] [address] 105 [place] [address] PCP - General Pediatrics 06/05/18 04/25/22 No Pcp, Pcp PCP - General 06/08/22 07/19/22 Guadalupe Mcbride MD PCP - General Family Medicine 07/20/22 11/01/23 Sena Dominguez PA [address] [place] [address] [place] [address] PCP - BRADY Physician Rooming House Inspector 11/02/23 Levy Barry MD [address] [place] [address] [place] [address] PCP - General Family Medicine 12/20/23 documented as of this encounter
--- OUTSIDE RECORDS SUMMARY | 2025-08-08 14:38 | XMS_ITS | Encounter Summary ---
Author Organization [facility] work ([facility]) Address [address] [place] [address] Care Team Providers Care Silk Opener Name Role Phone Meme Steel MD Primary Care Provider [phone] No Pcp, Pcp Primary Care Provider Unavailabl Guadalupe Bardales MD Primary Care Provider [phone] Sena Dominguez Unavailable [phone] Levy Barry MD Primary Care Provider Unavailab le Source Comments The information that you have received may contain highly confidential and/or federally protected health information. This information has been disclosed to you from records protected by [facility]. The law prohibits [...] sender immediately.[facility] ([facility]) Encounter Details Date Type Department Care Team (Late st Contact Info) Description 05/18/2011 Historical Note [facility] [employer] System Devyn Vásquez MD [address] [place] [address] [phone] Social History Tobacco Use Types Packs/Day Years [...] LEATHA CARRILLO - [facility] [employer] [address] [facility] [address] [place] [phone] Brenda Clay MD [address] [facility] [address] [place] [address] 04/15/2026 10:00 AM EDT Office Visit [facility]HA [facility] at [facility] [address] [facility] [address] [place] [address] Sena Dominguez PA [address] [facility] [place] [address] documented as of this encounter Visit Diagnoses Not on filedocumented in this encounter Care Teams Silk Opener Relationship Specialty Start Date End Date Meme Steel MD [address] [place] [address] 105 [place] [address] PCP - General Pediatrics 06/05/18 04/25/22 No Pcp, Pcp PCP - General 06/08/22 07/19/22 Guadalupe Mcbride MD PCP - General Family Medicine 07/20/22 11/01/23 Sena Dominguez PA [address] [place] [address] [place] [address] PCP - BRADY Physician Lock Plater 11/02/23 Levy Barry MD [address] [place] [address] [place] [address] PCP - General Family Medicine 12/20/23 documented as of this encounter
--- OUTSIDE RECORDS SUMMARY | 2025-08-08 14:38 | XMS_ITS | Encounter Summary ---
Author Organization [facility] work ([facility]) Address [address] [place] [address] Care Team Providers Care Cottage Master Name Role Phone Meme Steel MD Primary Care Provider [phone] No Pcp, Pcp Primary Care Provider Unavailabl Guadalupe Bardales MD Primary Care Provider [phone] Sena Dominguez Unavailable [phone] Levy Barry MD Primary Care Provider Unavailab le Source Comments The information that you have received may contain highly confidential and/or federally protected health information. This information has been disclosed to you from records protected by [facility]. The law prohibits you [...] the sender immediately.[facility] ([facility]) Encounter Details Date Type Department Care Team (Late st Contact Info) Description 05/12/2005 Historical Note [facility] Inaura System Devyn Vásquez MD [address] [place] [address] [phone] Social History Tobacco Use Types Packs/Day Years [...] CARRILLO - [facility] [address] [facility] [address] [place] [phone] Brenda Clay MD [address] [facility] [address] [place] [address] 04/15/2026 10:00 AM EDT Office Visit [facility] [address] [facility] [address] [place] [address] Sena Dominguez PA [address] [facility] [place] [address] documented as of this encounter Visit Diagnoses Not on filedocumented in this encounter Care Teams Cottage Master Relationship Specialty Start Date End Date Meme Steel MD [address] [place] [address] 105 [place] [address] PCP - General Pediatrics 06/05/18 04/25/22 No Pcp, Pcp PCP - General 06/08/22 07/19/22 Guadalupe Mcbride MD PCP - General Family Medicine 07/20/22 11/01/23 Sena Dominguez PA [address] [place] [address] [place] [address] PCP - BRADY Physician Metal Machinist 11/02/23 Levy Barry MD [address] [place] [address] [place] [address] PCP - General Family Medicine 12/20/23 documented as of this encounter
--- OUTSIDE RECORDS SUMMARY | 2025-08-08 14:38 | XMS_ITS | Encounter Summary ---
Author Organization [facility] work ([facility]) Address [address] [place] [address] Care Team Providers Care Daycare Provider Name Role Phone Meme Steel MD Primary Care Provider [phone] No Pcp, Pcp Primary Care Provider Unavailabl Guadalupe Bardales MD Primary Care Provider Sena Dominguez Unavailable [phone] Levy Barry MD Primary Care Provider Unavailab le Source Comments The information that you have received may contain highly confidential and/or federally protected health information. This information has been disclosed to you from records protected by [facility]. The law prohibits you from [...] sender immediately.[facility] ([facility]) Encounter Details Date Type Department Care Team (Late st Contact Info) Description 08/07/2009 Historical Note [facility] [employer] System Devyn Vásquez MD [address] [place] [address] [phone] Social History Tobacco Use Types Packs/Day Years [...] LEATHA CARRILLO - [facility] [address] [facility] [address] [place] [phone] Brenda Clay MD [address] [facility] [address] [place] [address] 04/15/2026 10:00 AM EDT Office Visit [facility]HA [facility] at [facility] [address] [facility] [address] [place] [address] Sena Dominguez PA [address] [facility] [place] [address] documented as of this encounter Visit Diagnoses Not on filedocumented in this encounter Care Teams Daycare Provider Relationship Specialty Start Date End Date Meme Steel MD [address] [place] [address] 105 [place] [address] PCP - General Pediatrics 06/05/18 04/25/22 No Pcp, Pcp PCP - General 06/08/22 07/19/22 Guadalupe Mcbride MD PCP - General Family Medicine 07/20/22 11/01/23 Sena Dominguez PA [address] [place] [address] [place] [address] PCP - BRADY Physician Waiter/Waitress 11/02/23 Levy Barry MD [address] [place] [address] [place] [address] PCP - General Family Medicine 12/20/23 documented as of this encounter
--- OUTSIDE RECORDS SUMMARY | 2025-08-08 14:38 | XMS_ITS | Encounter Summary ---
Author Organization [facility] work ([facility]) Address [address] [place] [address] Care Team Providers Care Procurement Representative Name Role Phone Meme Steel MD Primary Care Provider [phone] No Pcp, Pcp Primary Care Provider Unavailabl Guadalupe Bardales MD Primary Care Provider [phone] Sena Dominguez Unavailable [phone] Levy Barry MD Primary Care Provider Unavailab le Source Comments The information that you have received may contain highly confidential and/or federally protected health information. This information has been disclosed to you from records protected by [facility]. The law prohibits you from [...] please contact the sender immediately.[facility] ([facility]) Encounter Details Date Type Department Care Team (Late st Contact Info) Description 02/02/2016 Historical Note [facility] [employer] System Devyn Vásquez MD [address] [place] [address] [phone] Social History Tobacco Use Types Packs/Day Years [...] LEATHA CARRILLO - [facility] [address] [facility] [address] [place] [phone] Brenda Clay MD [address] [facility] [address] [place] [address] 04/15/2026 10:00 AM EDT Office Visit LE[facility]HA [facility] at [facility] [address] [facility] [address] [place] [address] Sena Dominguez PA [address] [facility] [place] [address] documented as of this encounter Visit Diagnoses Not on filedocumented in this encounter Care Teams Procurement Representative Relationship Specialty Start Date End Date Meme Steel MD [address] [place] [address] [place] [address] PCP - General Pediatrics 06/05/18 04/25/22 No Pcp, Pcp PCP - General 06/08/22 07/19/22 Guadalupe Mcbride MD PCP - General Family Medicine 07/20/22 11/01/23 Sena Dominguez PA [address] [address] [place] [address] PCP - BRADY Physician Clinical Education Consultant 11/02/23 Levy Barry MD [address] [address] [place] [address] PCP - General Family Medicine 12/20/23 documented as of this encounter
--- OUTSIDE RECORDS SUMMARY | 2025-08-08 14:38 | XMS_ITS | Encounter Summary ---
Author Organization [facility] work ([facility]) Address [address] [facility] [address] [place] [address] Care Team Providers Care Luster Repairer Name Role Phone Meme Steel MD Primary Care Provider [phone] Pcp, Pcp Primary Care Provider Unavailabl Guadalupe Bardales MD Primary Care Provider [phone] Sena Dominguez Unavailable Levy Barry MD Primary Care Provider Unavailab le Source Comments The information that you have received may contain highly confidential and/or federally protected health information. This information has been disclosed to you from records protected by [facility]. The law prohibits you [...] error, please contact the sender immediately.[facility] ([facility]) Encounter Details Date Type Department Care Team (Late st Contact Info) Description 11/21/2005 Historical Note [facility] Brightkit System Devyn Vásquez MD [address] [place] [address] [phone] Social History Tobacco Use Types Packs/Day Years [...] CARRILLO - [facility] at [facility] [address] [facility] [address] [place] [phone] Brenda Clay MD [address] [facility] [address] [place] [address] 04/15/2026 10:00 AM EDT Office Visit [facility] + [facility] [address] [facility] [address] [place] [address] Sena Dominguez [place] [address] [facility] [place] [address] documented as of this encounter Visit Diagnoses Not on filedocumented in this encounter Care Teams Luster Repairer Relationship Specialty Start Date End Date Meme Steel MD [address] [place] [address] [place] [address] PCP - General Pediatrics 06/05/18 04/25/22 No Pcp, Pcp PCP - General 06/08/22 07/19/22 Guadalupe Mcbride MD PCP - General Family Medicine 07/20/22 11/01/23 Sena Dominguez PA [address] [place] [address] [place] [address] PCP - BRADY Physician Geological Aide 11/02/23 Levy Barry MD [address] [place] [address] [place] [address] PCP - General Family Medicine 12/20/23 documented as of this encounter
--- OUTSIDE RECORDS SUMMARY | 2025-08-08 14:38 | XMS_ITS | Encounter Summary ---
Author Organization [facility] work ([facility]) Address [address] [facility] [address] [place] [address] Care Team Providers Care Inspector Pawnshop Detail Name Role Phone Meme Steel MD Primary Care Provider [phone] Pcp, Pcp Primary Care Provider Unavailabl Guadalupe Bardales MD Primary Care Provider [phone] Sena Dominguez Unavailable [phone] Levy Barry MD Primary Care Provider Unavailab le Source Comments The information that you have received may contain highly confidential and/or federally protected health information. This information has been disclosed to you from records protected by [facility]. The law prohibits you from [...] please contact the sender immediately.[facility] ([facility]) Encounter Details Date Type Department Care Team (Late st Contact Info) Description 08/10/2009 Historical Note [facility] Aqdot System Devyn Vásquez MD [address] [place] [address] [phone] Social History Tobacco Use Types Packs/Day Years [...] LEATHA CARRILLO - [facility] [address] [facility] [address] [place] [phone] Brenda Clay MD [address] [facility] [address] [place] [phone] 04/15/2026 10:00 AM EDT Office Visit [facility] at [facility] + [facility] [address] [facility] [address] [place] [address] Sena Dominguez PA [address] [facility] [place] [address] documented as of this encounter Visit Diagnoses Not on filedocumented in this encounter Care Teams Inspector Pawnshop Detail Relationship Specialty Start Date End Date Meme Steel MD [address] [place] [address] 105 [place] [address] PCP - General Pediatrics 06/05/18 04/25/22 No Pcp, Pcp PCP - General 06/08/22 07/19/22 Guadalupe Mcbride MD PCP - General Family Medicine 07/20/22 11/01/23 Sena Dominguez PA [address] [place] [address] [place] [address] PCP - BRADY Physician Bricklayer Tender 11/02/23 Levy Barry MD [address] [place] [address] [place] [address] PCP - General Family Medicine 12/20/23 documented as of this encounter
--- OUTSIDE RECORDS SUMMARY | 2025-08-08 14:38 | XMS_ITS | Encounter Summary ---
Author Organization [facility] work ([facility]) Address [address] [facility] [address] [place] [address] Care Team Providers Care Garment Looper Name Role Phone Meme Steel MD Primary Care Provider [phone] Pcp, Pcp Primary Care Provider Unavailabl Guadalupe Bardales MD Primary Care Provider [phone] Sena Dominguez Unavailable [phone] Levy Barry MD Primary Care Provider Unavailab le Source Comments The information that you have received may contain highly confidential and/or federally protected health information. This information has been disclosed to you from records protected by [facility]. The law prohibits you from [...] [facility] ([facility]) Encounter Details Date Type Department Care Team (Late st Contact Info) Description 06/20/2005 Historical Note [facility] US Toxicology System Devyn Vásquez MD [address] [place] [address] [phone] Social History Tobacco Use Types Packs/Day Years [...] LEATHA CARRILLO - [facility] [address] [facility] [address] [place] [phone] Brenda Clay MD [address] [facility] [address] [place] [phone] 04/15/2026 10:00 AM EDT Office Visit [facility]HA [facility] at [facility] + [facility] [address] [facility] [address] [place] [address] Sena Dominguez PA [address] [facility] [place] [address] documented as of this encounter Visit Diagnoses Not on filedocumented in this encounter Care Teams Garment Looper Relationship Specialty Start Date End Date Meme Steel MD [address] [place] [address] 105 [place] [address] PCP - General Pediatrics 06/05/18 04/25/22 No Pcp, Pcp PCP - General 06/08/22 07/19/22 Guadalupe Mcbride MD PCP - General Family Medicine 07/20/22 11/01/23 Sena Dominguez PA [address] [place] [address] [place] [address] PCP - BRADY Physician Printer Technician 11/02/23 Levy Barry MD [address] [place] [address] [place] [address] PCP - General Family Medicine 12/20/23 documented as of this encounter
--- OUTSIDE RECORDS SUMMARY | 2025-08-08 14:38 | XMS_ITS | Encounter Summary ---
Author Organization [facility] work ([facility]) Address [address] [facility] [address] [place] [address] Care Team Providers Care Electronic Semiconductor Processor Name Role Phone Meme Steel MD Primary Care Provider [phone] Pcp, Pcp Primary Care Provider Unavailabl Guadalupe Bardales MD Primary Care Provider [phone] Sena Dominguez Unavailable [phone] Levy Barry MD Primary Care Provider Unavailab le Source Comments The information that you have received may contain highly confidential and/or federally protected health information. This information has been disclosed to you from records protected by [facility]. The law prohibits you from [...] error, please contact the sender immediately.[facility] ([facility]) Encounter Details Date Type Department Care Team (Late st Contact Info) Description 05/30/2005 Historical Note [facility]G Xunda Pharmaceutical System Devyn Vásquez MD [address] [place] [address] [phone] Social History Tobacco Use Types Packs/Day Years [...] LEATHA CARRILLO - [facility] [address] [facility] [address] [place] [phone] Brenda Clay MD [address] [facility] [address] [place] [address] 04/15/2026 10:00 AM EDT Office Visit [facility]HA [facility] at [facility] + [facility] [address] [facility] [address] [place] [address] Sena Dominguez PA [address] [facility] [place] [address] documented as of this encounter Visit Diagnoses Not on filedocumented in this encounter Care Teams Electronic Semiconductor Processor Relationship Specialty Start Date End Date Meme Steel MD [address] [place] [address] 105 [place] [address] PCP - General Pediatrics 06/05/18 04/25/22 No Pcp, Pcp PCP - General 06/08/22 07/19/22 Guadalupe Mcbride MD PCP - General Family Medicine 07/20/22 11/01/23 Sena Dominguez PA [address] [place] [address] [place] [address] PCP - BRADY Physician Pressed Or Blown Glass Worker 11/02/23 Levy Barry MD [address] [place] [address] [place] [address] PCP - General Family Medicine 12/20/23 documented as of this encounter
--- OUTSIDE RECORDS SUMMARY | 2025-08-08 14:38 | XMS_ITS | Encounter Summary ---
Author Organization [facility] work ([facility]) Address [address] [facility] [facility] [address] [place] [address] Care Team Providers Care Land Measurer Name Role Phone Meme Steel MD Primary Care Provider [phone] No Pcp, Pcp Primary Care Provider Unavailabl Guadalupe Bardales MD Primary Care Provider [phone] Sena Dominguez Unavailable [phone] Levy Barry MD Primary Care Provider Unavailab le Source Comments The information that you have received may contain highly confidential and/or federally protected health information. This information has been disclosed to you from records protected by [facility]. The law prohibits you from [...] please contact the sender immediately.[facility] ([facility]) Encounter Details Date Type Department Care Team (Late st Contact Info) Description 03/21/2016 Historical Note [facility] Redington System Devyn Vásquez MD [address] [place] [address] [phone] Social History Tobacco Use Types Packs/Day Years [...] - [facility] [address] [facility] [address] [place] [phone] Brenda Clay MD [address] [facility] [address] [place] [address] 04/15/2026 10:00 AM EDT Office Visit LEATHA [facility] at [facility] + [facility] [address] [facility] [address] [place] [address] Sena Dominguez PA [address] [facility] [place] [address] documented as of this encounter Visit Diagnoses Not on filedocumented in this encounter Care Teams Land Measurer Relationship Specialty Start Date End Date Meme Steel MD [address] [place] [address] 105 [place] [address] PCP - General Pediatrics 06/05/18 04/25/22 No Pcp, Pcp PCP - General 06/08/22 07/19/22 Guadalupe Mcbride MD PCP - General Family Medicine 07/20/22 11/01/23 Sena Dominguez PA [address] [place] [address] [place] [address] PCP - BRADY Physician Vp Respiratory 11/02/23 Levy Barry MD [address] [place] [address] [place] [address] PCP - General Family Medicine 12/20/23 documented as of this encounter
--- OUTSIDE RECORDS SUMMARY | 2025-08-08 14:38 | XMS_ITS | Encounter Summary ---
Author Organization [facility] work ([facility]) Address [address] [facility] [address] [place] [address] Care Team Providers Care Fence Builder Name Role Phone Meme Steel MD Primary Care Provider No Pcp, Pcp Primary Care Provider Unavailabl Guaadlupe Bardales MD Primary Care Provider [phone] Sena Dominguez Unavailable [phone] Levy Barry MD Primary Care Provider Unavailab le Source Comments The information that you have received may contain highly confidential and/or federally protected health information. This information has been disclosed to you from records protected by [facility]. The law prohibits you [...] immediately.[facility] ([facility]) Encounter Details Date Type Department Care Team (Late st Contact Info) Description 09/01/2009 Historical Note SVMG GoEuro System Devyn Vásquez MD [address] [place] [address] [phone] Social History Tobacco Use Types Packs/Day Years [...] - [facility] at [facility] [address] [facility] [address] [place] [phone] Brenda Clay MD [address] [facility] [address] [place] [address] 04/15/2026 10:00 AM EDT Office Visit [facility]HA [facility] + [facility] [address] [facility] [address] [place] [address] Sena Dominguez PA [address] [facility] [place] [address] documented as of this encounter Visit Diagnoses Not on filedocumented in this encounter Care Teams Fence Builder Relationship Specialty Start Date End Date Meme Steel MD [address] [place] [address] [place] [address] PCP - General Pediatrics 06/05/18 04/25/22 No Pcp, Pcp PCP - General 06/08/22 07/19/22 Guadalupe Mcbride MD PCP - General Family Medicine 07/20/22 11/01/23 Sena Dominguez PA [address] [place] [address] [place] [address] PCP - BRADY Physician Bale Opener 11/02/23 Levy Barry MD [address] [place] [address] [place] [address] PCP - General Family Medicine 12/20/23 documented as of this encounter
--- OUTSIDE RECORDS SUMMARY | 2025-08-08 14:38 | XMS_ITS | Encounter Summary ---
Author Organization [facility] work ([facility]) Address [address] [facility] [address] [place] [address] Care Team Providers Care Photoresist Printer Name Role Phone Meme Steel MD Primary Care Provider [phone] Pcp, Pcp Primary Care Provider Unavailabl Guadalupe Bardales MD Primary Care Provider [phone] Sena Dominguez Unavailable Levy Barry MD Primary Care Provider Unavailab le Source Comments The information that you have received may contain highly confidential and/or federally protected health information. This information has been disclosed to you from records protected by [facility]. The law prohibits you from making [...] please contact the sender immediately.[facility] ([facility]) Encounter Details Date Type Department Care Team (Late st Contact Info) Description 08/17/2010 Historical Note SVMG ideeli System Devyn Vásquez MD [address] [place] [address] [phone] Social History Tobacco Use Types Packs/Day Years [...] [facility] [address] [facility] [address] [place] [phone] Brenda Clay MD [address] [facility] [address] [place] [address] 04/15/2026 10:00 AM EDT Office Visit LEATHA Primary [facility] at [facility] + [facility] [address] [facility] [address] [place] [address] Sena Dominguez PA [address] [facility] [place] [address] documented as of this encounter Visit Diagnoses Not on filedocumented in this encounter Care Teams Photoresist Printer Relationship Specialty Start Date End Date Meme Steel MD [address] [place] [address] 105 [place] [address] PCP - General Pediatrics 06/05/18 04/25/22 No Pcp, Pcp PCP - General 06/08/22 07/19/22 Guadalupe Mcbride MD PCP - General Family Medicine 07/20/22 11/01/23 Sena Dominguez PA [address] [place] [address] [place] [address] PCP - BRADY Physician Letter Stamping Machine Operator 11/02/23 Levy Barry MD [address] [place] [address] [place] [address] PCP - General Family Medicine 12/20/23 documented as of this encounter
--- OUTSIDE RECORDS SUMMARY | 2025-08-08 14:38 | XMS_ITS | Encounter Summary ---
Author Organization [facility] work ([facility]) Address [address] [facility] [address] [place] [address] Care Team Providers Care Restaurant Operations Manager Name Role Phone Meme Steel MD Primary Care Provider [phone] Pcp, Pcp Primary Care Provider Unavailabl Guadalupe Bardales MD Primary Care Provider [phone] Sena Dominguez Unavailable [phone] Levy Barry MD Primary Care Provider Unavailab le Source Comments The information that you have received may contain highly confidential and/or federally protected health information. This information has been disclosed to you from records protected by [facility]. The law prohibits you [...] error, please contact the sender immediately.[facility] ([facility]) Encounter Details Date Type Department Care Team (Late st Contact Info) Description 06/14/2011 Historical Note SVMG Packet Digital System Devyn Vásquez MD [address] [place] [address] [phone] Social History Tobacco Use Types Packs/Day Years [...] Visit LEATHA CARRILLO - [facility] [address] [facility] [address] [place] [phone] Brenda Clay MD [address] [facility] [address] [place] [address] 04/15/2026 10:00 AM EDT Office Visit LEATHA Primary [facility] at [facility] + [facility] [address] [facility] [address] [place] [address] Sena Dominguez PA [address] [facility] [place] [address] documented as of this encounter Visit Diagnoses Not on filedocumented in this encounter Care Teams Restaurant Operations Manager Relationship Specialty Start Date End Date Meme Steel MD [address] [place] [address] 105 [place] [address] PCP - General Pediatrics 06/05/18 04/25/22 No Pcp, Pcp PCP - General 06/08/22 07/19/22 Guadalupe Mcbride MD PCP - General Family Medicine 07/20/22 11/01/23 Sena Dominguez PA [address] [place] [address] [place] [address] PCP - BRADY Physician Log Manager 11/02/23 Levy Barry MD [address] [place] [address] [place] [address] PCP - General Family Medicine 12/20/23 documented as of this encounter
--- OUTSIDE RECORDS SUMMARY | 2025-08-08 14:38 | XMS_ITS | Encounter Summary ---
Author Organization [facility] work ([facility]) Address [address] [facility] [address] [place] [address] Care Team Providers Care Ssds Mk 2 Advanced Operator Name Role Phone Meme Steel MD Primary Care Provider [phone] No Pcp, Pcp Primary Care Provider Unavailabl Guadalupe Bardales MD Primary Care Provider [phone] Sena Dominguez Unavailable [phone] Levy Barry MD Primary Care Provider Unavailab le Source Comments The information that you have received may contain highly confidential and/or federally protected health information. This information has been disclosed to you from records protected by [facility]. The law prohibits you from [...] contact the sender immediately.[facility] ([facility]) Encounter Details Date Type Department Care Team (Late st Contact Info) Description 02/16/2012 Historical Note [facility]G Cerapedics System Devyn Vásquez MD [address] [place] [address] [phone] Social History Tobacco Use Types Packs/Day Years [...] LEATHA CARRILLO - [facility] [address] [facility] [address] [place] [phone] Brenda Clay MD [address] [facility] [address] [place] [phone] 04/15/2026 10:00 AM EDT Office Visit LEATHA Primary [facility] at [facility] + [facility] [address] [facility] [address] [place] [address] Sena Dominguez PA [address] [facility] [place] [address] documented as of this encounter Visit Diagnoses Not on filedocumented in this encounter Care Teams Ssds Mk 2 Advanced Operator Relationship Specialty Start Date End Date Meme Steel MD [address] [place] [address] 105 [place] [address] PCP - General Pediatrics 06/05/18 04/25/22 No Pcp, Pcp PCP - General 06/08/22 07/19/22 Guadalupe Mcbride MD PCP - General Family Medicine 07/20/22 11/01/23 Sena Dominguez PA [address] [place] [address] [place] [address] PCP - BRADY Physician Brazer Controlled Atmospheric Furnace 11/02/23 Levy Barry MD [address] [place] [address] [place] [address] PCP - General Family Medicine 12/20/23 documented as of this encounter
--- OUTSIDE RECORDS SUMMARY | 2025-08-08 14:38 | XMS_ITS | Encounter Summary ---
Author Organization [facility] work ([facility]) Address [address] [place] [address] Care Team Providers Care Finishing Machine Tender Name Role Phone Meme Steel MD Primary Care Provider [phone] No Pcp, Pcp Primary Care Provider Unavailabl Guadalupe Bardales MD Primary Care Provider [phone] Sena Dominguez Unavailable [phone] Levy Barry MD Primary Care Provider Unavailab le Source Comments The information that you have received may contain highly confidential and/or federally protected health information. This information has been disclosed to you from records protected by [facility]. The law prohibits you from [...] contact the sender immediately.[facility] ([facility]) Encounter Details Date Type Department Care Team (Late st Contact Info) Description 05/31/2005 Historical Note SVMG Mobile Active Defense System Devyn Vásquez MD [address] [place] [address] [phone] Social History Tobacco Use Types Packs/Day Years [...] LEATHA CARRILLO - [facility] [address] [employer] [address] [place] [phone] Brenda Clay MD [address] [facility] [address] [place] [address] 04/15/2026 10:00 AM EDT Office Visit LEATHA Primary [facility] at [facility] + [facility] [address] [facility] [address] [place] [address] Sena Dominguez PA [address] [facility] [place] [address] documented as of this encounter Visit Diagnoses Not on filedocumented in this encounter Care Teams Finishing Machine Tender Relationship Specialty Start Date End Date Meme Steel MD [address] [place] [address] 105 [place] [address] PCP - General Pediatrics 06/05/18 04/25/22 No Pcp, Pcp PCP - General 06/08/22 07/19/22 Guadalupe Mcbride MD PCP - General Family Medicine 07/20/22 11/01/23 Sena Dominguez PA [address] [place] [address] [place] [address] PCP - BRADY Physician Roller Hand 11/02/23 Levy Barry MD [address] [place] [address] [place] [address] PCP - General Family Medicine 12/20/23 documented as of this encounter
--- OUTSIDE RECORDS SUMMARY | 2025-08-08 14:38 | XMS_ITS | Encounter Summary ---
Author Organization [facility] work ([facility]) Address [address] [place] [address] Care Team Providers Care Acquisition Lead Name Role Phone Meme Steel MD Primary Care Provider [phone] Pcp, Pcp Primary Care Provider Unavailabl Guadalupe Bardales MD Primary Care Provider [phone] Sena Dominguez Unavailable [phone] Levy Barry MD Primary Care Provider Unavailab le Source Comments The information that you have received may contain highly confidential and/or federally protected health information. This information has been disclosed to you from records protected by [facility]. The law prohibits you from making [...] the sender immediately.[facility] ([facility]) Encounter Details Date Type Department Care Team (Late st Contact Info) Description 09/10/2009 Historical Note [facility] [email or web address] System Devyn Vásquez MD [address] [place] [address] [phone] Social History Tobacco Use Types Packs/Day Years [...] [facility] at [facility] [address] [facility] [address] [place] [phone] Brenda Clay MD [address] [facility] [address] [place] [address] 04/15/2026 10:00 AM EDT Office Visit [facility]HA [facility] at [facility] + [facility] [address] [facility] [address] [place] [address] Sena Dominguez PA [address] [facility] [place] [address] documented as of this encounter Visit Diagnoses Not on filedocumented in this encounter Care Teams Acquisition Lead Relationship Specialty Start Date End Date Meme Steel MD [address] [place] [address] [place] [address] PCP - General Pediatrics 06/05/18 04/25/22 No Pcp, Pcp PCP - General 06/08/22 07/19/22 Guadalupe Mcbride MD PCP - General Family Medicine 07/20/22 11/01/23 Sena Dominguez PA [address] [place] [address] [place] [address] PCP - BRADY Physician Bar Tacker 11/02/23 Levy Barry MD [address] [place] [address] [place] [address] PCP - General Family Medicine 12/20/23 documented as of this encounter
--- OUTSIDE RECORDS SUMMARY | 2025-08-08 14:38 | XMS_ITS | Encounter Summary ---
Author Organization [facility] work ([facility]) Address [address] [place] [address] Care Team Providers Care Base Draw Operator Name Role Phone Meme Steel MD Primary Care Provider [phone] No Pcp, Pcp Primary Care Provider Unavailabl Guadalupe Bardales MD Primary Care Provider [phone] Sena Dominguez Unavailable [phone] Levy Barry MD Primary Care Provider Unavailab le Source Comments The information that you have received may contain highly confidential and/or federally protected health information. This information has been disclosed to you from records protected by [facility]. The law prohibits you [...] error, please contact the sender immediately.[facility] ([facility]) Encounter Details Date Type Department Care Team (Late st Contact Info) Description 07/13/2016 Historical Note [facility] KSE System Devyn Vásquez MD [address] [place] [address] [phone] Social History Tobacco Use Types Packs/Day Years [...] CARRILLO - [facility] [address] [facility] [address] [place] [phone] Brenda Clay MD [address] [facility] [address] [place] [address] 04/15/2026 10:00 AM EDT Office Visit [facility]HA [facility] at [facility] + [facility] [address] [facility] [address] [place] [address] Sena Dominguez PA [address] [facility] [place] [address] documented as of this encounter Visit Diagnoses Not on filedocumented in this encounter Care Teams Base Draw Operator Relationship Specialty Start Date End Date Meme Steel MD [address] [place] [address] 105 [place] [address] PCP - General Pediatrics 06/05/18 04/25/22 No Pcp, Pcp PCP - General 06/08/22 07/19/22 Guadalupe Mcbride MD PCP - General Family Medicine 07/20/22 11/01/23 Sena Dominguez PA [address] [place] [address] [place] [address] PCP - BRADY Physician Graphics Programmer 11/02/23 Levy Barry MD [address] [place] [address] [place] [address] PCP - General Family Medicine 12/20/23 documented as of this encounter
--- OUTSIDE RECORDS SUMMARY | 2025-08-08 14:38 | XMS_ITS | Encounter Summary ---
Author Organization [facility] work ([facility]) Address [address] [place] [address] Care Team Providers Care Health Director Name Role Phone Meme Steel MD Primary Care Provider [phone] Pcp, Pcp Primary Care Provider Unavailabl Guadalupe Bardales MD Primary Care Provider [phone] Sena Dominguez Unavailable [phone] Levy Barry MD Primary Care Provider Unavailab le Source Comments The information that you have received may contain highly confidential and/or federally protected health information. This information has been disclosed to you from records protected by [facility]. The law prohibits you [...] contact the sender immediately.[facility] ([facility]) Encounter Details Date Type Department Care Team (Late st Contact Info) Description 03/29/2016 Historical Note [facility] Energreen System Devyn Vásquez MD [address] [place] [address] [phone] Social History Tobacco Use Types Packs/Day Years [...] LEATHA CARRILLO - [facility] [address] [facility] [address] [place] [phone] Brenda Clay MD [address] [facility] [address] [place] [address] 04/15/2026 10:00 AM EDT Office Visit LEATHA Primary [facility] at [facility] + [facility] [address] [facility] [address] [place] [address] Sena Dominguez PA [address] [facility] [place] [address] documented as of this encounter Visit Diagnoses Not on filedocumented in this encounter Care Teams Health Director Relationship Specialty Start Date End Date Meme Steel MD [address] [place] [address] 105 [place] [address] PCP - General Pediatrics 06/05/18 04/25/22 No Pcp, Pcp PCP - General 06/08/22 07/19/22 Guadalupe Mcbride MD PCP - General Family Medicine 07/20/22 11/01/23 Sena Dominguez PA [address] [place] [address] [place] [address] PCP - BRADY Physician Healthcare Receptionist 11/02/23 Levy Barry MD [address] [place] [address] [place] [address] PCP - General Family Medicine 12/20/23 documented as of this encounter
--- OUTSIDE RECORDS SUMMARY | 2025-08-08 14:38 | XMS_ITS | Encounter Summary ---
Author Organization [facility] work ([facility]) Address [address] [place] [address] Care Team Providers Care Golf Cart Maker Name Role Phone Meme Steel MD Primary Care Provider [phone] No Pcp, Pcp Primary Care Provider Unavailabl Guadalupe Bardales MD Primary Care Provider Sena Dominguez Unavailable [phone] Levy Barry MD Primary Care Provider Unavailab le Source Comments The information that you have received may contain highly confidential and/or federally protected health information. This information has been disclosed to you from records protected by [facility]. The law prohibits you from making [...] [facility] ([facility]) Encounter Details Date Type Department Care Team (Late st Contact Info) Description 10/23/2009 Historical Note [facility] Kwicr System Devyn Vásquez MD [address] [place] [address] [phone] Social History Tobacco Use Types Packs/Day Years [...] Visit LEATHA CARRILLO - [facility] [address] [facility] [address] [place] [phone] Brenda Clay MD [address] [facility] [address] [place] [address] 04/15/2026 10:00 AM EDT Office Visit LE[facility]HA [facility] at [facility] + [facility] [address] [facility] [address] [place] [address] Sena Dominguez PA [address] [facility] [place] [address] documented as of this encounter Visit Diagnoses Not on filedocumented in this encounter Care Teams Golf Cart Maker Relationship Specialty Start Date End Date Meme Steel MD [address] [place] [address] 105 [place] [address] PCP - General Pediatrics 06/05/18 04/25/22 No Pcp, Pcp PCP - General 06/08/22 07/19/22 Guadalupe Mcbride MD PCP - General Family Medicine 07/20/22 11/01/23 Sena Dominguez PA [address] [place] [address] [place] [address] PCP - BRADY Physician Air Brush Operator 11/02/23 Levy Barry MD [address] [place] [address] [place] [address] PCP - General Family Medicine 12/20/23 documented as of this encounter
--- OUTSIDE RECORDS SUMMARY | 2025-08-08 14:38 | XMS_ITS | Encounter Summary ---
Author Organization [facility] work ([facility]) Address [address] [facility] [address] [place] [address] Care Team Providers Care Building Construction Professor Name Role Phone Meme Steel MD Primary Care Provider [phone] No Pcp, Pcp Primary Care Provider Unavailabl Guadalupe Bardales MD Primary Care Provider [phone] Sena Dominguez Unavailable [phone] Levy Barry MD Primary Care Provider Unavailab le Source Comments The information that you have received may contain highly confidential and/or federally protected health information. This information has been disclosed to you from records protected by [facility]. The law prohibits you from [...] please contact the sender immediately.[facility] ([facility]) Encounter Details Date Type Department Care Team (Late st Contact Info) Description 05/31/2005 Historical Note [facility] Sensor Tower System Devyn Vásquez MD [address] [place] [address] [phone] Social History Tobacco Use Types Packs/Day [...] LEATHA CARRILLO - [facility] [address] [facility] [address] [place] [phone] Brenda Clay MD [address] [facility] [address] [place] [address] 04/15/2026 10:00 AM EDT Office Visit LEATHA Primary [facility] at [facility] + [facility] [address] [facility] [address] [place] [address] Sena Dominguez PA [address] [facility] [place] [address] documented as of this encounter Visit Diagnoses Not on filedocumented in this encounter Care Teams Building Construction Professor Relationship Specialty Start Date End Date Meme Steel MD [address] [place] [address] 105 [place] [address] PCP - General Pediatrics 06/05/18 04/25/22 No Pcp, Pcp PCP - General 06/08/22 07/19/22 Guadalupe Mcbride MD PCP - General Family Medicine 07/20/22 11/01/23 Sena Dominguez PA [address] [place] [address] [place] [address] PCP - BRADY Physician Human Resources Professional 11/02/23 Levy Barry MD [address] [place] [address] [place] [address] PCP - General Family Medicine 12/20/23 documented as of this encounter
--- OUTSIDE RECORDS SUMMARY | 2025-08-08 14:38 | XMS_ITS | Encounter Summary ---
Author Organization [facility] work ([facility]) Address [address] [place] [address] Care Team Providers Care Fiber Product Cutting Machine Operator Name Role Phone Meme Steel MD Primary Care Provider [phone] No Pcp, Pcp Primary Care Provider Unavailabl Guadalupe Bardales MD Primary Care Provider [phone] Sena Dominguez Unavailable [phone] Levy Barry MD Primary Care Provider Unavailab le Source Comments The information that you have received may contain highly confidential and/or federally protected health information. This information has been disclosed to you from records protected by [facility]. The law prohibits [...] the sender immediately.[facility] ([facility]) Encounter Details Date Type Department Care Team (Late st Contact Info) Description 06/30/2005 Historical Note SVMG [employer] System Devyn Vásquez MD [address] [place] [address] [phone] Social History Tobacco Use Types Packs/Day Years [...] - [facility] at [facility] [address] [facility] [address] [place] [phone] Brenda Clay MD [address] [facility] [address] [place] [address] 04/15/2026 10:00 AM EDT Office Visit [facility] at [facility] [address] [facility] [address] [place] [address] Sena Dominguez PA [address] [facility] [place] [address] documented as of this encounter Visit Diagnoses Not on filedocumented in this encounter Care Teams Fiber Product Cutting Machine Operator Relationship Specialty Start Date End Date Meme Steel MD [address] [place] [address] 105 [place] [address] PCP - General Pediatrics 06/05/18 04/25/22 No Pcp, Pcp PCP - General 06/08/22 07/19/22 Guadalupe Mcbride MD PCP - General Family Medicine 07/20/22 11/01/23 Sena Dominguez PA [address] [place] [address] [place] [address] PCP - BRADY Physician Florist'S Decorator 11/02/23 Levy Barry MD [address] [place] [address] [place] [address] PCP - General Family Medicine 12/20/23 documented as of this encounter
--- OUTSIDE RECORDS SUMMARY | 2025-08-08 14:38 | XMS_ITS | Encounter Summary ---
Author Organization [facility] work ([facility]) Address [address] [place] [address] Care Team Providers Care Batter Mixer Helper Name Role Phone Meme Steel MD Primary Care Provider [phone] No Pcp, Pcp Primary Care Provider Unavailabl Guadalupe Bardales MD Primary Care Provider [phone] Sena Dominguez Unavailable [phone] Levy Barry MD Primary Care Provider Unavailab le Source Comments The information that you have received may contain highly confidential and/or federally protected health information. This information has been disclosed to you from records protected by [facility]. The law prohibits you from making [...] in error, please contact the sender immediately. ([facility]) Encounter Details Date Type Department Care Team (Late st Contact Info) Description 07/13/2016 Historical Note [facility]G Easydiagnosis System Devyn Vásquez MD [address] [place] [address] [phone] Social History Tobacco Use Types Packs/Day Years [...] LEATHA CARRILLO - [facility] at [facility] [address] [facility] [address] [place] [phone] Brenda Clay MD [address] [facility] [address] [place] [address] 04/15/2026 10:00 AM EDT Office Visit LEATHA Primary [facility] at [facility] + [facility] [address] [facility] [address] [place] [address] Sena Dominguez PA [address] [facility] [place] [address] documented as of this encounter Visit Diagnoses Not on filedocumented in this encounter Care Teams Batter Mixer Helper Relationship Specialty Start Date End Date Meme Steel MD [address] [place] [address] 105 [place] [address] PCP - General Pediatrics 06/05/18 04/25/22 No Pcp, Pcp PCP - General 06/08/22 07/19/22 Guadalupe Mcbride MD PCP - General Family Medicine 07/20/22 11/01/23 Sena Dominguez PA [address] [place] [address] [place] [address] PCP - BRADY Physician Assistant Speech Language Pathologist 11/02/23 Levy Barry MD [address] [place] [address] [place] [address] PCP - General Family Medicine 12/20/23 documented as of this encounter
--- OUTSIDE RECORDS SUMMARY | 2025-08-08 14:38 | XMS_ITS | Encounter Summary ---
Author Organization [facility] work ([facility]) Address [address] [place] [address] Care Team Providers Care Transcriptionist Name Role Phone Meme Steel MD Primary Care Provider [phone] Pcp, Pcp Primary Care Provider Unavailabl Guadalupe Bardales MD Primary Care Provider [phone] Sena Dominguez Unavailable [phone] Levy Barry MD Primary Care Provider Unavailab le Source Comments The information that you have received may contain highly confidential and/or federally protected health information. This information has been disclosed to you from records protected by [facility]. The law prohibits [...] please contact the sender immediately.[facility] ([facility]) Encounter Details Date Type Department Care Team (Late st Contact Info) Description 05/12/2005 Historical Note [facility] Neocutis System Devyn Vásquez MD [address] [place] [address] [phone] Social History Tobacco Use Types Packs/Day Years [...] Visit LEATHA CARRILLO - [facility] [address] [facility] [address] [place] [phone] Brenda Clay MD [address] [facility] [address] [place] [address] 04/15/2026 10:00 AM EDT Office Visit LEATHA Primary Care at [facility] + [facility] [address] [facility] [address] [place] [address] Sena Dominguez PA [address] [facility] [place] [address] documented as of this encounter Visit Diagnoses Not on filedocumented in this encounter Care Teams Transcriptionist Relationship Specialty Start Date End Date Meme Steel MD [address] [place] [address] 105 [place] [address] PCP - General Pediatrics 06/05/18 04/25/22 No Pcp, Pcp PCP - General 06/08/22 07/19/22 Guadalupe Mcbride MD PCP - General Family Medicine 07/20/22 11/01/23 Sena Dominguez PA [address] [place] [address] [place] [address] PCP - BRADY Physician Shuttle Operator 11/02/23 Levy aBrry MD [address] [place] [address] [place] [address] PCP - General Family Medicine 12/20/23 documented as of this encounter
--- OUTSIDE RECORDS SUMMARY | 2025-08-08 14:38 | XMS_ITS | Encounter Summary ---
Author Organization [facility] work ([facility]) Address [address] [place] [address] Care Team Providers Care Audit Lead Name Role Phone Meme Steel MD Primary Care Provider [phone] No Pcp, Pcp Primary Care Provider Unavailabl Guadalupe Bardales MD Primary Care Provider [phone] Sena Dominguez Unavailable [phone] Levy Barry MD Primary Care Provider Unavailab le Source Comments The information that you have received may contain highly confidential and/or federally protected health information. This information has been disclosed to you from records protected by [facility]. The law prohibits you [...] error, please contact the sender immediately.[facility] ([facility]) Encounter Details Date Type Department Care Team (Late st Contact Info) Description 03/21/2016 Historical Note [facility] Wi[employer] System Devyn Vásquez MD [address] [place] [address] [phone] Social History Tobacco Use Types Packs/Day Years [...] LEATHA CARRILLO - [facility] [address] [facility] [address] [place] [phone] Brenda Clay MD [address] [facility] [address] [place] [phone] 04/15/2026 10:00 AM EDT Office Visit LEATHA Primary [facility] at [facility] + [facility] [address] [facility] [address] [place] [address] Sena Dominguez PA [address] [facility] [place] [address] documented as of this encounter Visit Diagnoses Not on filedocumented in this encounter Care Teams Audit Lead Relationship Specialty Start Date End Date Meme Steel MD [address] [place] [address] 105 [place] [address] PCP - General Pediatrics 06/05/18 04/25/22 No Pcp, Pcp PCP - General 06/08/22 07/19/22 Guadalupe Mcbride MD PCP - General Family Medicine 07/20/22 11/01/23 Sena Dominguez PA [address] [place] [address] [place] [address] PCP - BRADY Physician Parking Patroller 11/02/23 Levy Barry MD [address] [place] [address] [place] [address] PCP - General Family Medicine 12/20/23 documented as of this encounter
--- OUTSIDE RECORDS SUMMARY | 2025-08-08 14:38 | XMS_ITS | Encounter Summary ---
Author Organization [facility] work ([facility]) Address [address] [place] [address] Care Team Providers Care Public Relations Analyst Name Role Phone Meme Steel MD Primary Care Provider [phone] No Pcp, Pcp Primary Care Provider Unavailabl Guadalupe Bardales MD Primary Care Provider [phone] Sena Dominguez Unavailable Levy Barry MD Primary Care Provider Unavailab le Source Comments The information that you have received may contain highly confidential and/or federally protected health information. This information has been disclosed to you from records protected by [facility]. The law prohibits you [...] please contact the sender immediately.[facility] ([facility]) Encounter Details Date Type Department Care Team (Late st Contact Info) Description 09/08/2011 Historical Note [facility]G real trends System Devyn Vásquez MD [address] [place] [address] [phone] Social History Tobacco Use Types Packs/Day Years [...] CARRILLO - [facility] at [facility] [address] [facility] [address] [place] [phone] Brenda Clay MD [address] [facility] [address] [place] [address] 04/15/2026 10:00 AM EDT Office Visit LEATHA Primary [facility] at [facility] + [facility] [address] [facility] [address] [place] [address] Sena Dominguez PA [address] [facility] [place] [address] documented as of this encounter Visit Diagnoses Not on filedocumented in this encounter Care Teams Public Relations Analyst Relationship Specialty Start Date End Date Meme Steel MD [address] [place] [address] 105 [place] [address] PCP - General Pediatrics 06/05/18 04/25/22 No Pcp, Pcp PCP - General 06/08/22 07/19/22 Guadalupe Mcbride MD PCP - General Family Medicine 07/20/22 11/01/23 Sena Dominguez PA [address] [place] [address] [place] [address] PCP - BRADY Physician Sketch Maker 11/02/23 Levy Barry MD [address] [place] [address] [place] [address] PCP - General Family Medicine 12/20/23 documented as of this encounter
--- OUTSIDE RECORDS SUMMARY | 2025-08-08 14:38 | XMS_ITS | Encounter Summary ---
Author Organization [facility] work ([facility]) Address [address] [place] [address] Care Team Providers Care Tool Crib Lead Name Role Phone Meme Steel MD Primary Care Provider [phone] Pcp, Pcp Primary Care Provider Unavailabl Guadalupe Bardales MD Primary Care Provider [phone] Sena Dominguez Unavailable [phone] Levy Barry MD Primary Care Provider Unavailab le Source Comments The information that you have received may contain highly confidential and/or federally protected health information. This information has been disclosed to you from records protected by [facility]. The law [...] please contact the sender immediately.[facility] ([facility]) Encounter Details Date Type Department Care Team (Late st Contact Info) Description 05/18/2011 Historical Note [facility] Apaja [facility] Devyn Vásquez MD [address] [place] [address] [phone] Social History Tobacco Use Types Packs/Day Years [...] [facility] [address] [place] [phone] Brenda Clay MD [address] [facility] [address] [place] [address] 04/15/2026 10:00 AM EDT Office Visit LEATHA Primary [facility] at [facility] [address] [place] [address] Sena Dominguez PA [address] [facility] [place] [address] documented as of this encounter Visit Diagnoses Not on filedocumented in this encounter Care Teams Tool Crib Lead Relationship Specialty Start Date End Date Meme Steel MD [address] [place] [address] [place] [address] PCP - General Pediatrics 06/05/18 04/25/22 No Pcp, Pcp PCP - General 06/08/22 07/19/22 Guadalupe Mcbride MD PCP - General Family Medicine 07/20/22 11/01/23 Sena Dominguez PA [address] [place] [address] [place] [address] PCP - BRADY Physician Product Safety Associate 11/02/23 Levy Barry MD [address] [place] [address] [place] [address] PCP - General Family Medicine 12/20/23 documented as of this encounter
--- OUTSIDE RECORDS SUMMARY | 2025-08-08 14:38 | XMS_ITS | Encounter Summary ---
Author Organization [facility] work ([facility]) Address [address] [place] [address] Care Team Providers Care Draw Frame Tender Name Role Phone Meme Steel MD Primary Care Provider [phone] Pcp, Pcp Primary Care Provider Unavailabl Guadalupe Bardales MD Primary Care Provider [phone] Sena Dominguez Unavailable [phone] Levy Barry MD Primary Care Provider Unavailab le Source Comments The information that you have received may contain highly confidential and/or federally protected health information. This information has been disclosed to you from records protected by [facility]. The law prohibits you from [...] in error, please contact the sender immediately.[facility] ([facility]) Encounter Details Date Type Department Care Team (Late st Contact Info) Description 03/09/2016 Historical Note [facility] LocPlanet System Devyn Vásquez MD [address] [place] [address] [phone] Social History Tobacco Use Types Packs/Day Years [...] Visit LEATHA CARRILLO - [facility] [address] [place] [phone] Brenda Clay MD [address] [facility] [address] [place] [address] 04/15/2026 10:00 AM EDT Office Visit LEATHA Primary Care at [facility] + [facility] [address] [place] [address] Sena Dominguez PA [address] [facility] [place] [address] documented as of this encounter Visit Diagnoses Not on filedocumented in this encounter Care Teams Draw Frame Tender Relationship Specialty Start Date End Date Meme Steel MD [address] [place] [address] 105 [place] [address] PCP - General Pediatrics 06/05/18 04/25/22 No Pcp, Pcp PCP - General 06/08/22 07/19/22 Guadalupe Mcbride MD PCP - General Family Medicine 07/20/22 11/01/23 Sena Dominguez PA [address] [place] [address] [place] [address] PCP - BRADY Physician Shaping Machine Tender 11/02/23 Levy Barry MD [address] [place] [address] [place] [address] PCP - General Family Medicine 12/20/23 documented as of this encounter
--- OUTSIDE RECORDS SUMMARY | 2025-08-08 14:38 | XMS_ITS | Encounter Summary ---
Author Organization [facility] work ([facility]) Address [address] [place] [address] Care Team Providers Care Court Crier Name Role Phone Meme Steel MD Primary Care Provider [phone] Pcp, Pcp Primary Care Provider Unavailabl Guadalupe Bardales MD Primary Care Provider [phone] Sena Dominguez Unavailable [phone] Levy Barry MD Primary Care Provider Unavailab le Source Comments The information that you have received may contain highly confidential and/or federally protected health information. This information has been disclosed to you from records protected by [employer] [facility]. The law [...] contact the sender immediately.[facility] ([facility]) Encounter Details Date Type Department Care Team (Late st Contact Info) Description 08/07/2009 Historical Note [facility] iKnowl System Devyn Vásquez MD [address] [place] [address] [phone] Social History Tobacco Use Types Packs/Day Years [...] LEATHA CARRILLO - [facility] [address] [place] [phone] Brenda Clay MD [address] [facility] [address] [place] [address] 04/15/2026 10:00 AM EDT Office Visit LEATHA Primary Care at [facility] + [facility] [address] [facility] [facility] [address] [place] [address] Sena Dominguez PA [address] [facility] [place] [address] documented as of this encounter Visit Diagnoses Not on filedocumented in this encounter Care Teams Court Crier Relationship Specialty Start Date End Date Meme Steel MD [address] [place] [address] [place] [address] PCP - General Pediatrics 06/05/18 04/25/22 No Pcp, Pcp PCP - General 06/08/22 07/19/22 Guadalupe Mcbride MD PCP - General Family Medicine 07/20/22 11/01/23 Sena Dominguez PA [address] [place] [address] [place] [address] PCP - BRADY Physician Meat Scrubber 11/02/23 Levy Barry MD [address] [place] [address] [place] [address] PCP - General Family Medicine 12/20/23 documented as of this encounter
--- OUTSIDE RECORDS SUMMARY | 2025-08-08 14:38 | XMS_ITS | Encounter Summary ---
Author Organization [facility] work ([facility]) Address [address] [place] [address] Care Team Providers Care Designer/Writer Name Role Phone Meme Steel MD Primary Care Provider [phone] Pcp, Pcp Primary Care Provider Unavailabl Guadalupe Bardales MD Primary Care Provider [phone] Sena Dominguez Unavailable [phone] Levy Barry MD Primary Care Provider Unavailab le Source Comments The information that you have received may contain highly confidential and/or federally protected health information. This information has been disclosed to you from records protected by [facility]. The law prohibits you from making [...] please contact the sender immediately.[facility] ([facility]) Encounter Details Date Type Department Care Team (Late st Contact Info) Description 06/02/2005 Historical Note [facility] Genus Oncology System Devyn Vásquez MD [address] [place] [address] [phone] Social History Tobacco Use Types Packs/Day Years [...] - [facility] [address] [place] [phone] Brenda Clay MD [address] [facility] [address] [place] [address] 04/15/2026 10:00 AM EDT Office Visit LEATHA Primary Care at [facility] + [facility] [address] [facility] [address] [place] [address] Sena Dominguez PA [address] [facility] [place] [address] documented as of this encounter Visit Diagnoses Not on filedocumented in this encounter Care Teams Designer/Writer Relationship Specialty Start Date End Date Meme Steel MD [address] [place] [address] 105 [place] [address] PCP - General Pediatrics 06/05/18 04/25/22 No Pcp, Pcp PCP - General 06/08/22 07/19/22 Guadalupe Mcbride MD PCP - General Family Medicine 07/20/22 11/01/23 Sena Dominguez PA [address] [place] [address] [place] [address] PCP - BRADY Physician Painter Set 11/02/23 Levy Barry MD [address] [place] [address] [place] [address] PCP - General Family Medicine 12/20/23 documented as of this encounter
--- OUTSIDE RECORDS SUMMARY | 2025-08-08 14:39 | XMS_ITS | Encounter Summary ---
Author Organization [facility] work ([facility]) Address [address] [place] [address] Care Team Providers Care Gas Welder Name Role Phone Meme Steel MD Primary Care Provider [phone] Pcp, Pcp Primary Care Provider Unavailabl Guadalupe Bardales MD Primary Care Provider [phone] Sena Dominguez Unavailable [phone] Levy Barry MD Primary Care Provider Unavailab le Source Comments The information that you have received may contain highly confidential and/or federally protected health information. This information has been disclosed to you from records protected by [facility]. The law prohibits you [...] the sender immediately.[facility] ([facility]) Encounter Details Date Type Department Care Team (Late st Contact Info) Description 02/19/2010 Historical Note [facility] CarePartners Plus System Devyn Vásquez MD [address] [place] [address] [phone] Social History Tobacco Use Types Packs/Day Years [...] LEATHA CARRILLO - [facility] [address] [place] [phone] Brenda Clay MD [address] [facility] [address] [place] [phone] 04/15/2026 10:00 AM EDT Office Visit LEATHA Primary Care at [facility] + [facility] [address] [place] [address] Sena Dominguez PA [address] [facility] [address] [place] [address] documented as of this encounter Visit Diagnoses Not on filedocumented in this encounter Care Teams Gas Welder Relationship Specialty Start Date End Date Meme Steel MD [address] [place] [address] 105 [place] [address] PCP - General Pediatrics 06/05/18 04/25/22 No Pcp, Pcp PCP - General 06/08/22 07/19/22 Guadalupe Mcbride MD PCP - General Family Medicine 07/20/22 11/01/23 Sena Dominguez PA [address] [place] [address] [place] [address] PCP - BRADY Physician Metal Sash Setter 11/02/23 Levy Barry MD [address] [place] [address] [place] [address] PCP - General Family Medicine 12/20/23 documented as of this encounter
--- OUTSIDE RECORDS SUMMARY | 2025-08-08 14:39 | XMS_ITS | Encounter Summary ---
Author Organization [facility] work ([facility]) Address [address] [place] [address] Care Team Providers Care Bladder Tier Name Role Phone Meme Steel MD Primary Care Provider [phone] Pcp, Pcp Primary Care Provider Unavailabl Guadalupe Bardales MD Primary Care Provider [phone] Sena Dominguez Unavailable [phone] Levy Barry MD Primary Care Provider Unavailab le Source Comments The information that you have received may contain highly confidential and/or federally protected health information. This information has been disclosed to you from records protected by [facility] [facility]. The law prohibits [...] please contact the sender immediately.[facility] ([facility]) Encounter Details Date Type Department Care Team (Late st Contact Info) Description 08/17/2010 Historical Note [facility] IMVU System Devyn Vásquez MD [address] [place] [address] [phone] Social History Tobacco Use Types Packs/Day Years [...] LEATHA CARRILLO - [facility] [address] [facility] [address] [place] [phone] Brenda Clay MD [address] [facility] [address] [place] [phone] 04/15/2026 10:00 AM EDT Office Visit LEATHA Primary Care at [facility] + [facility] [address] [facility] [address] [place] [address] Sena Dominguez PA [address] [facility] [place] [address] documented as of this encounter Visit Diagnoses Not on filedocumented in this encounter Care Teams Bladder Tier Relationship Specialty Start Date End Date Meme Steel MD [address] [place] [address] 105 [place] [address] PCP - General Pediatrics 06/05/18 04/25/22 No Pcp, Pcp PCP - General 06/08/22 07/19/22 Guadalupe Mcbride MD PCP - General Family Medicine 07/20/22 11/01/23 Sena Dominguez PA [address] [place] [address] [place] [address] PCP - BRADY Physician Choir Singer 11/02/23 Levy Barry MD [address] [place] [address] [place] [address] PCP - General Family Medicine 12/20/23 documented as of this encounter
--- OUTSIDE RECORDS SUMMARY | 2025-08-08 14:39 | XMS_ITS | Encounter Summary ---
Author Organization [facility] work ([facility]) Address [address] [place] [address] Care Team Providers Care Director Client Services Name Role Phone Meme Steel MD Primary Care Provider [phone] Pcp, Pcp Primary Care Provider Unavailabl Guadalupe Bardales MD Primary Care Provider [phone] Sena Dominguez Unavailable [phone] Levy Barry MD Primary Care Provider Unavailab le Source Comments The information that you have received may contain highly confidential and/or federally protected health information. This information has been disclosed to you from records protected by [facility]. The law prohibits you [...] please contact the sender immediately.[facility] ([facility]) Encounter Details Date Type Department Care Team (Late st Contact Info) Description 08/23/2010 Historical Note [facility] Alliance Card System Devyn Vásquez MD [address] [place] [address] [phone] Social History Tobacco Use Types Packs/Day Years [...] CARRILLO - [facility] [address] [facility] [address] [place] [phone] Brenda Clay MD [address] [facility] [address] [place] [phone] 04/15/2026 10:00 AM EDT Office Visit LEATHA Primary [facility] at [facility] + [facility] [address] [facility] [address] [place] [address] Sena Dominugez PA [address] [facility] [place] [address] documented as of this encounter Visit Diagnoses Not on filedocumented in this encounter Care Teams Director Client Services Relationship Specialty Start Date End Date Meme Steel MD [address] [place] [address] 105 [place] [address] PCP - General Pediatrics 06/05/18 04/25/22 No Pcp, Pcp PCP - General 06/08/22 07/19/22 Guadalupe Mcbride MD PCP - General Family Medicine 07/20/22 11/01/23 Sena Dominguez PA [address] [place] [address] [place] [address] PCP - BRADY Physician Field Geologist 11/02/23 Levy Barry MD [address] [place] [address] [place] [address] PCP - General Family Medicine 12/20/23 documented as of this encounter
--- OUTSIDE RECORDS SUMMARY | 2025-08-08 14:39 | XMS_ITS | Encounter Summary ---
Author Organization [facility] work ([facility]) Address [address] [place] [address] Care Team Providers Care Coal Loader Name Role Phone Meme Steel MD Primary Care Provider [phone] Pcp, Pcp Primary Care Provider Unavailabl Guadalupe Bardales MD Primary Care Provider [phone] Sena Dominguez Unavailable [phone] Levy Barry MD Primary Care Provider Unavailab le Source Comments The information that you have received may contain highly confidential and/or federally protected health information. This information has been disclosed to you from records protected by [facility]. The law prohibits you [...] contact the sender immediately.[facility] ([facility]) Encounter Details Date Type Department Care Team (Late st Contact Info) Description 10/23/2009 Historical Note [facility] Siine System Devyn Vásquez MD [address] [place] [address] [phone] Social History Tobacco Use Types Packs/Day Years [...] LEATHA CARRILLO - [facility] [address] [facility] [address] [place] [phone] Brenda Clay MD [address] [facility] [address] [place] [address] 04/15/2026 10:00 AM EDT Office Visit LEATHA Primary Care at [facility] + [facility] [address] [facility] [address] [place] [phone] Sena Dominguez PA [address] [facility] [place] [address] documented as of this encounter Visit Diagnoses Not on filedocumented in this encounter Care Teams Coal Loader Relationship Specialty Start Date End Date Meme Steel MD [address] [place] [address] 105 [place] [address] PCP - General Pediatrics 06/05/18 04/25/22 No Pcp, Pcp PCP - General 06/08/22 07/19/22 Guadalupe Mcbride MD PCP - General Family Medicine 07/20/22 11/01/23 Sena Dominguez PA [address] [place] [address] [place] [address] PCP - BRADY Physician Office Machine Inspector 11/02/23 Levy Barry MD [address] [place] [address] [place] [address] PCP - General Family Medicine 12/20/23 documented as of this encounter
--- OUTSIDE RECORDS SUMMARY | 2025-08-08 14:39 | XMS_ITS | Encounter Summary ---
Author Organization [facility] work ([facility]) Address [address] [place] [address] Care Team Providers Care Baseball Inspector Name Role Phone Meme Steel MD Primary Care Provider [phone] No Pcp, Pcp Primary Care Provider Unavailabl Guadalupe Bardales MD Primary Care Provider [phone] Sena Dominguez Unavailable [phone] Levy Barry MD Primary Care Provider Unavailab le Source Comments The information that you have received may contain highly confidential and/or federally protected health information. This information has been disclosed to you from records protected by [facility]. The law prohibits you from [...] error, please contact the sender immediately.[facility] ([facility]) Encounter Details Date Type Department Care Team (Late st Contact Info) Description 2004 Historical Note [facility] Devyn Vásquez MD [address] [place] [address] [phone] Social History Tobacco Use Types Packs/Day Years [...] at [facility] [address] [facility] [address] [place] [phone] Brenda Clay MD [address] [facility] [address] [place] [address] 04/15/2026 10:00 AM EDT Office Visit LEATHA Primary Care at [facility] + [facility] [address] [facility] [address] [place] [address] Sena Dominguez PA [address] [facility] [place] [address] documented as of this encounter Visit Diagnoses Not on filedocumented in this encounter Care Teams Baseball Inspector Relationship Specialty Start Date End Date Meme Steel MD [address] [place] [address] 105 [place] [address] PCP - General Pediatrics 06/05/18 04/25/22 No Pcp, Pcp PCP - General 06/08/22 07/19/22 Guadalupe Mcbride MD PCP - General Family Medicine 07/20/22 11/01/23 Sena Dominguez PA [address] [place] [address] [place] [address] PCP - BRADY Physician Dock Attendant 11/02/23 Levy Barry MD [address] [place] [address] [place] [address] PCP - General Family Medicine 12/20/23 documented as of this encounter
--- OUTSIDE RECORDS SUMMARY | 2025-08-08 14:39 | XMS_ITS | Encounter Summary ---
Author Organization [facility] work ([facility]) Address [address] [place] [address] Care Team Providers Care Job Placement Counselor Name Role Phone Meme Steel MD Primary Care Provider [phone] No Pcp, Pcp Primary Care Provider Unavailabl Guadalupe Bardales MD Primary Care Provider [phone] Sena Dominguez Unavailable [phone] Levy Barry MD Primary Care Provider Unavailab le Source Comments The information that you have received may contain highly confidential and/or federally protected health information. This information has been disclosed to you from records protected by [facility]. The law prohibits you from [...] please contact the sender immediately.[facility] ([facility]) Encounter Details Date Type Department Care Team (Late st Contact Info) Description 06/24/2005 Historical Note [facility] Vaavud System Devyn Vásquez MD [address] [place] [address] [phone] Social History Tobacco Use Types Packs/Day Years [...] [facility] [address] [facility] [address] [place] [phone] Brenda Clay MD [address] [facility] [address] [place] [address] 04/15/2026 10:00 AM EDT Office Visit LEATHA [facility] at [facility] [address] [facility] [place] [address] Sena Dominguez PA [address] [facility] [facility] [place] [address] documented as of this encounter Visit Diagnoses Not on filedocumented in this encounter Care Teams Job Placement Counselor Relationship Specialty Start Date End Date Meme Steel MD [address] [place] [address] 105 [place] [address] PCP - General Pediatrics 06/05/18 04/25/22 No Pcp, Pcp PCP - General 06/08/22 07/19/22 Guadalupe Mcbride MD PCP - General Family Medicine 07/20/22 11/01/23 Sena Dominguez PA [address] [place] [address] [place] [address] PCP - BRADY Physician Teacher Public Health 11/02/23 Levy Barry MD [address] [place] [address] [place] [address] PCP - General Family Medicine 12/20/23 documented as of this encounter
--- OUTSIDE RECORDS SUMMARY | 2025-08-08 14:39 | XMS_ITS | Encounter Summary ---
Author Organization [facility] work ([facility]) Address [address] [place] [address] Care Team Providers Care Supervisor Dehydrogenation Name Role Phone Meme Steel MD Primary Care Provider [phone] Pcp, Pcp Primary Care Provider Unavailabl Guadalupe Bardales MD Primary Care Provider [phone] Sena Dominguez Unavailable Levy Barry MD Primary Care Provider Unavailab le Source Comments The information that you have received may contain highly confidential and/or federally protected health information. This information has been disclosed to you from records protected by [facility]. The law prohibits you from making [...] the sender immediately.[facility] ([facility]) Encounter Details Date Type Department Care Team (Late st Contact Info) Description 01/16/2017 Historical Note [facility] JNS Towers System Devyn Vásquez MD [address] [place] [address] [phone] Social History Tobacco Use Types Packs/Day Years [...] CARRILLO - [facility] [address] [facility] [address] [place] [phone] Brenda Clay MD [address] [place] [address] 04/15/2026 10:00 AM EDT Office Visit [facility] + [facility] [address] [facility] [address] [facility] [address] [place] [address] Sena Dominguez PA [address] [facility] [place] [address] documented as of this encounter Visit Diagnoses Not on filedocumented in this encounter Care Teams Supervisor Dehydrogenation Relationship Specialty Start Date End Date Meme Steel MD [address] [place] [address] 105 [place] [address] PCP - General Pediatrics 06/05/18 04/25/22 No Pcp, Pcp PCP - General 06/08/22 07/19/22 Guadalupe Mcbride MD PCP - General Family Medicine 07/20/22 11/01/23 Sena Dominguez PA [address] [place] [address] [place] [address] PCP - BRADY Physician Manager Country 11/02/23 Levy Barry MD [address] [place] [address] [place] [address] PCP - General Family Medicine 12/20/23 documented as of this encounter
--- OUTSIDE RECORDS SUMMARY | 2025-08-08 14:39 | XMS_ITS | Encounter Summary ---
Author Organization [facility] work ([facility]) Address [address] [place] [address] Care Team Providers Care Tobacco Buyer Name Role Phone Meme Steel MD Primary Care Provider [phone] Pcp, Pcp Primary Care Provider Unavailabl Guadalupe Bardales MD Primary Care Provider [phone] Sena Dominguez Unavailable [phone] Levy Barry MD Primary Care Provider Unavailab le Source Comments The information that you have received may contain highly confidential and/or federally protected health information. This information has been disclosed to you from records protected by [facility]. The law [...] contact the sender immediately.[facility] ([facility]) Encounter Details Date Type Department Care Team (Late st Contact Info) Description 09/01/2016 Historical Note [facility] Taltopia System Devyn Vásquez MD [address] [place] [address] [phone] Social History Tobacco Use Types Packs/Day Years [...] LEATHA CARRILLO - [facility] [address] [facility] [address] [place] [phone] Brenda Clay MD [address] [facility] [address] [place] [phone] 04/15/2026 10:00 AM EDT Office Visit [facility] + [facility] [address] [place] [address] Sena Dominguez PA [address] [place] [address] documented as of this encounter Visit Diagnoses Not on filedocumented in this encounter Care Teams Tobacco Buyer Relationship Specialty Start Date End Date Meme Steel MD [address] [place] [address] 105 [place] [address] PCP - General Pediatrics 06/05/18 04/25/22 No Pcp, Pcp PCP - General 06/08/22 07/19/22 Guadalupe Mcbride MD PCP - General Family Medicine 07/20/22 11/01/23 Sena Dominguez PA [address] [place] [address] [place] [address] PCP - BRADY Physician Product Promoter Retail Pet 11/02/23 Levy Barry MD [address] [place] [address] [place] [address] PCP - General Family Medicine 12/20/23 documented as of this encounter
--- OUTSIDE RECORDS SUMMARY | 2025-08-08 14:39 | XMS_ITS | Encounter Summary ---
Author Organization [facility] work ([facility]) Address [address] [place] [address] Care Team Providers Care Drying Equipment Operator Name Role Phone Meme Steel MD Primary Care Provider [phone] Pcp, Pcp Primary Care Provider Unavailabl Guadalupe Bardales MD Primary Care Provider [phone] Sena Dominguez Unavailable [phone] Levy Barry MD Primary Care Provider Unavailab le Source Comments The information that you have received may contain highly confidential and/or federally protected health information. This information has been disclosed to you from records protected by [facility]. The law prohibits you from [...] please contact the sender immediately.[facility] ([facility]) Encounter Details Date Type Department Care Team (Late st Contact Info) Description 03/31/2009 Historical Note [facility] BRD Motorcycles System Devyn Vásquez MD [address] [place] [address] [phone] Social History Tobacco Use Types Packs/Day Years [...] CARRILLO - [facility] [address] [facility] [address] [place] [phone] Brenda Clay MD [address] [facility] [address] [place] [address] 04/15/2026 10:00 AM EDT Office Visit [facility] [address] [facility] [address] [place] [address] Sena Dominguez PA [address] [facility] [place] [address] documented as of this encounter Visit Diagnoses Not on filedocumented in this encounter Care Teams Drying Equipment Operator Relationship Specialty Start Date End Date Meme Steel MD [address] [place] [address] 105 [place] [address] PCP - General Pediatrics 06/05/18 04/25/22 No Pcp, Pcp PCP - General 06/08/22 07/19/22 Guadalupe Mcbride MD PCP - General Family Medicine 07/20/22 11/01/23 Sena Dominguez PA [address] [place] [address] [place] [address] PCP - BRADY Physician Container Crane Operator 11/02/23 Levy Barry MD [address] [place] [address] [place] [address] PCP - General Family Medicine 12/20/23 documented as of this encounter
--- OUTSIDE RECORDS SUMMARY | 2025-08-08 14:39 | XMS_ITS | Encounter Summary ---
Author Organization [facility] work ([facility]) Address [address] [place] [address] Care Team Providers Care Case Specialist Name Role Phone Meme Steel MD Primary Care Provider [phone] Pcp, Pcp Primary Care Provider Unavailabl Guadalupe Bardales MD Primary Care Provider [phone] Sena Dominguez Unavailable [phone] Levy Barry MD Primary Care Provider Unavailab le Source Comments The information that you have received may contain highly confidential and/or federally protected health information. This information has been disclosed to you from records protected by [facility]. The law prohibits you [...] contact the sender immediately.[facility] ([facility]) Encounter Details Date Type Department Care Team (Late st Contact Info) Description 01/26/2005 Historical Note [facility] be2 System Devyn Vásquez MD [address] [place] [address] [phone] Social History Tobacco Use Types Packs/Day Years [...] CARRILLO - [facility] [address] [facility] [address] [place] [phone] Brenda Clay MD [address] [facility] [address] [place] [phone] 04/15/2026 10:00 AM EDT Office Visit [facility] at [facility] + [facility] [address] [facility] [address] [place] [address] Sena Dominguez PA [address] [facility] [place] [address] documented as of this encounter Visit Diagnoses Not on filedocumented in this encounter Care Teams Case Specialist Relationship Specialty Start Date End Date Meme Steel MD [address] [place] [address] 105 [place] [address] PCP - General Pediatrics 06/05/18 04/25/22 No Pcp, Pcp PCP - General 06/08/22 07/19/22 Guadalupe Mcbride MD PCP - General Family Medicine 07/20/22 11/01/23 Sena Dominguez PA [address] [place] [address] [place] [address] PCP - BRADY Physician Mri Technologist 11/02/23 Levy Barry MD [address] [place] [address] [place] [address] PCP - General Family Medicine 12/20/23 documented as of this encounter
--- OUTSIDE RECORDS SUMMARY | 2025-08-08 14:39 | XMS_ITS | Encounter Summary ---
Author Organization [facility] work ([facility]) Address [address] [place] [address] Care Team Providers Care Records Custodian Name Role Phone Meme Steel MD Primary Care Provider [phone] Pcp, Pcp Primary Care Provider Unavailabl Guadalupe Bardales MD Primary Care Provider [phone] Sena Dominguez Unavailable Levy Barry MD Primary Care Provider Unavailab le Source Comments The information that you have received may contain highly confidential and/or federally protected health information. This information has been disclosed to you from records protected by [facility]. The law prohibits you from [...] contact the sender immediately.[facility] ([facility]) Encounter Details Date Type Department Care Team (Late st Contact Info) Description 2004 Historical Note [facility] Orthocone System Devyn Vásquez MD [address] [place] [address] [phone] Social History Tobacco Use Types Packs/Day Years [...] LEATHA CARRILLO - [facility] [address] [facility] [address] [place] [phone] Brenda Clay MD [address] [facility] [address] [place] [phone] 04/15/2026 10:00 AM EDT Office Visit [facility] [address] [place] [address] Sena Dominguez PA [address] [facility] [place] [address] documented as of this encounter Visit Diagnoses Not on filedocumented in this encounter Care Teams Records Custodian Relationship Specialty Start Date End Date Meme Steel MD [address] [place] [address] 105 [place] [address] PCP - General Pediatrics 06/05/18 04/25/22 No Pcp, Pcp PCP - General 06/08/22 07/19/22 Guadalupe Mcbride MD PCP - General Family Medicine 07/20/22 11/01/23 Sena Dominguez PA [address] [place] [address] [place] [address] PCP - BRADY Physician Fruit Or Nut Farmer 11/02/23 Levy Barry MD [address] [place] [address] [place] [address] PCP - General Family Medicine 12/20/23 documented as of this encounter
--- OUTSIDE RECORDS SUMMARY | 2025-08-08 14:39 | XMS_ITS | Encounter Summary ---
Author Organization [facility] work ([facility]) Address [address] [place] [address] Care Team Providers Care Drying Can Worker Name Role Phone Meme Steel MD Primary Care Provider [phone] Pcp, Pcp Primary Care Provider Unavailabl Guadalupe Bardales MD Primary Care Provider [phone] Sena Dominguez Unavailable [phone] Levy Barry MD Primary Care Provider Unavailab le Source Comments The information that you have received may contain highly confidential and/or federally protected health information. This information has been disclosed to you from records protected by [facility]. The law prohibits you from [...] error, please contact the sender immediately.[facility] ([facility]) Encounter Details Date Type Department Care Team (Late st Contact Info) Description 08/30/2005 Historical Note [facility] Syrinix System Devyn Vásquez MD [address] [place] [address] [phone] Social History Tobacco Use Types Packs/Day Years [...] Visit LEATHA CARRILLO - [facility] [address] [facility] [address] [place] [phone] Brenda Clay MD [address] [facility] [address] [place] [address] 04/15/2026 10:00 AM EDT Office Visit [facility]HA [facility] at [facility] + [facility] [address] [facility] [address] [place] [address] Sena Dominguez PA [address] [facility] [place] [address] documented as of this encounter Visit Diagnoses Not on filedocumented in this encounter Care Teams Drying Can Worker Relationship Specialty Start Date End Date Meme Steel MD [address] [place] [address] 105 [place] [address] PCP - General Pediatrics 06/05/18 04/25/22 No Pcp, Pcp PCP - General 06/08/22 07/19/22 Guadalupe Mcbride MD PCP - General Family Medicine 07/20/22 11/01/23 Sena Dominguez PA [address] [place] [address] [place] [address] PCP - BRADY Physician Engineering Technician Parking 11/02/23 Levy Barry MD [address] [place] [address] [place] [address] PCP - General Family Medicine 12/20/23 documented as of this encounter
--- OUTSIDE RECORDS SUMMARY | 2025-08-08 14:39 | XMS_ITS | Encounter Summary ---
Author Organization [facility] work ([facility]) Address [address] [place] [address] Care Team Providers Care Professor Of Engineering Name Role Phone Meme Steel MD Primary Care Provider [phone] Pcp, Pcp Primary Care Provider Unavailabl Guadalupe Bardales MD Primary Care Provider [phone] Sena Dominguez Unavailable [phone] Levy Barry MD Primary Care Provider Unavailab le Source Comments The information that you have received may contain highly confidential and/or federally protected health information. This information has been disclosed to you from records protected by [facility]. The law prohibits you [...] sender immediately.[facility] ([facility]) Encounter Details Date Type Department Care Team (Late st Contact Info) Description 06/30/2005 Historical Note [facility] Bitpagos System Devyn Vásquez MD [address] [place] [address] [phone] Social History Tobacco Use Types Packs/Day Years [...] - [facility] at [facility] [address] [facility] [address] [place] [phone] Brenda Clay MD [address] [facility] [address] [place] [phone] 04/15/2026 10:00 AM EDT Office Visit LE[facility]HA [facility] at [facility] + [facility] [address] [facility] [address] [place] [address] Sena Dominguez PA [address] [facility] [place] [address] documented as of this encounter Visit Diagnoses Not on filedocumented in this encounter Care Teams Professor Of Engineering Relationship Specialty Start Date End Date Meme Steel MD [address] [place] [address] 105 [place] [address] PCP - General Pediatrics 06/05/18 04/25/22 No Pcp, Pcp PCP - General 06/08/22 07/19/22 Guadalupe Mcbride MD PCP - General Family Medicine 07/20/22 11/01/23 Sena Dominguez PA [address] [place] [address] [place] [address] PCP - BRADY Physician Nuclear Power Plant Engineer 11/02/23 Levy Barry MD [address] [place] [address] [place] [address] PCP - General Family Medicine 12/20/23 documented as of this encounter
--- OUTSIDE RECORDS SUMMARY | 2025-08-08 14:39 | XMS_ITS | Encounter Summary ---
Author Organization [facility] work ([facility]) Address [address] [place] [address] Care Team Providers Care Computer Operations Technician Name Role Phone Meme Steel MD Primary Care Provider [phone] Pcp, Pcp Primary Care Provider Unavailabl Guadalupe Bardales MD Primary Care Provider [phone] Sena Dominguez Unavailable [phone] Levy Barry MD Primary Care Provider Unavailab le Source Comments The information that you have received may contain highly confidential and/or federally protected health information. This information has been disclosed to you from records protected by [facility]. The law prohibits you from [...] please contact the sender immediately.[facility] ([facility]) Encounter Details Date Type Department Care Team (Late st Contact Info) Description 2004 Historical Note [facility] Swagsy System Devyn Vásquez MD [address] [place] [address] [phone] Social History Tobacco Use Types Packs/Day Years [...] CARRILLO - [facility] [address] [facility] [address] [place] [phone] Brenda Clay MD [address] [facility] [address] [place] [address] 04/15/2026 10:00 AM EDT Office Visit [facility] [address] [facility] [address] [place] [address] Sena Dominguez PA [address] [facility] [place] [address] documented as of this encounter Visit Diagnoses Not on filedocumented in this encounter Care Teams Computer Operations Technician Relationship Specialty Start Date End Date Meme Steel MD [address] [place] [address] 105 [place] [address] PCP - General Pediatrics 06/05/18 04/25/22 No Pcp, Pcp PCP - General 06/08/22 07/19/22 Guadalupe Mcbride MD PCP - General Family Medicine 07/20/22 11/01/23 Sena Dominguez PA [address] [place] [address] [place] [address] PCP - BRADY Physician Client Development Consultant 11/02/23 Levy Barry MD [address] [place] [address] [place] [address] PCP - General Family Medicine 12/20/23 documented as of this encounter
--- OUTSIDE RECORDS SUMMARY | 2025-08-08 14:39 | XMS_ITS | Encounter Summary ---
Author Organization [facility] work ([facility]) Address [address] [place] [address] Care Team Providers Care Medical Instrument Cable Fabricator Name Role Phone Meme Steel MD Primary Care Provider [phone] Pcp, Pcp Primary Care Provider Unavailabl Guadalupe Bardales MD Primary Care Provider [phone] Sena Dominguez Unavailable [phone] Levy Barry MD Primary Care Provider Unavailab le Source Comments The information that you have received may contain highly confidential and/or federally protected health information. This information has been disclosed to you from records protected by [facility]. The law prohibits you [...] please contact the sender immediately.[facility] ([facility]) Encounter Details Date Type Department Care Team (Late st Contact Info) Description 04/08/2009 Historical Note [facility] Sellbrite System Devyn Vásquez MD [address] [place] [address] [phone] Social History Tobacco Use Types Packs/Day Years [...] LEATHA CARRILLO - [facility] [address] [facility] [address] [place] [phone] Brenda Clay MD [address] [facility] [address] [place] [address] 04/15/2026 10:00 AM EDT Office Visit LE[facility]HA [facility] at [facility] + [facility] [address] [facility] [address] [place] [address] Sena Dominguez PA [address] [facility] [place] [address] documented as of this encounter Visit Diagnoses Not on filedocumented in this encounter Care Teams Medical Instrument Cable Fabricator Relationship Specialty Start Date End Date Meme Steel MD [address] [place] [address] 105 [place] [address] PCP - General Pediatrics 06/05/18 04/25/22 No Pcp, Pcp PCP - General 06/08/22 07/19/22 Guadalupe Mcbride MD PCP - General Family Medicine 07/20/22 11/01/23 Sena Dominguez PA [address] [place] [address] [place] [address] PCP - BRADY Physician Knock Up Assembler 11/02/23 Levy Barry MD [address] [place] [address] [place] [address] PCP - General Family Medicine 12/20/23 documented as of this encounter
--- OUTSIDE RECORDS SUMMARY | 2025-08-08 14:39 | XMS_ITS | Encounter Summary ---
Author Organization [facility] work ([facility]) Address [address] [place] [address] Care Team Providers Care Continuous Process Machine Operator Name Role Phone Meme Steel MD Primary Care Provider [phone] Pcp, Pcp Primary Care Provider Unavailabl Guadalupe Bardales MD Primary Care Provider Sena Dominguez Unavailable [phone] Levy Barry MD Primary Care Provider Unavailab le Source Comments The information that you have received may contain highly confidential and/or federally protected health information. This information has been disclosed to you from records protected by [facility]. The law prohibits you [...] [facility] ([facility]) Encounter Details Date Type Department Care Team (Late st Contact Info) Description 10/01/2008 Historical Note [facility] Pie Digital System Devyn Vásquez MD [address] [place] [address] [phone] Social History Tobacco Use Types Packs/Day Years [...] Visit LEATHA CARRILLO - [facility] [address] [facility] [address] [place] [phone] Brenda Clay MD [address] [facility] [address] [place] [phone] 04/15/2026 10:00 AM EDT Office Visit LE[facility]HA [facility] at [facility] + [facility] [address] [facility] [address] [place] [phone] Sena Dominguez PA [address] [facility] [place] [address] documented as of this encounter Visit Diagnoses Not on filedocumented in this encounter Care Teams Continuous Process Machine Operator Relationship Specialty Start Date End Date Meme Steel MD [address] [place] [address] 105 [place] [address] PCP - General Pediatrics 06/05/18 04/25/22 No Pcp, Pcp PCP - General 06/08/22 07/19/22 Guadalupe Mcbride MD PCP - General Family Medicine 07/20/22 11/01/23 Sena Dominguez PA [address] [place] [address] [place] [address] PCP - BRADY Physician Reports Developer 11/02/23 Levy Barry MD [address] [place] [address] [place] [address] PCP - General Family Medicine 12/20/23 documented as of this encounter
--- OUTSIDE RECORDS SUMMARY | 2025-08-08 14:39 | XMS_ITS | Encounter Summary ---
Author Organization [facility] work ([facility]) Address [address] [place] [address] Care Team Providers Care Chemical Worker Name Role Phone Meme Steel MD Primary Care Provider [phone] No Pcp, Pcp Primary Care Provider Unavailabl Guadalupe Bardales MD Primary Care Provider [phone] Sena Dominguez Unavailable [phone] Levy Barry MD Primary Care Provider Unavailab le Source Comments The information that you have received may contain highly confidential and/or federally protected health information. This information has been disclosed to you from records protected by [facility]. The law prohibits you from [...] error, please contact the sender immediately.[facility] ([facility]) Encounter Details Date Type Department Care Team (Late st Contact Info) Description 10/29/2009 Historical Note [facility] Hemarina System Devyn Vásquez MD [address] [place] [address] [phone] Social History Tobacco Use Types Packs/Day Years [...] LEATHA CARRILLO - [facility] [address] [facility] [address] [place] [phone] Brenda Clay MD [address] [facility] [address] [place] [address] 04/15/2026 10:00 AM EDT Office Visit [facility]HA [facility] at [facility] + [facility] [address] [facility] [address] [place] [address] Sena Dominguez PA [address] [facility] [place] [address] documented as of this encounter Visit Diagnoses Not on filedocumented in this encounter Care Teams Chemical Worker Relationship Specialty Start Date End Date Meme Steel MD [address] [place] [address] 105 [place] [address] PCP - General Pediatrics 06/05/18 04/25/22 No Pcp, Pcp PCP - General 06/08/22 07/19/22 Guadalupe Mcbride MD PCP - General Family Medicine 07/20/22 11/01/23 Sena Dominguez PA [address] [place] [address] [place] [address] PCP - BRADY Physician Drywall Sprayer 11/02/23 Levy Barry MD [address] [place] [address] [place] [address] PCP - General Family Medicine 12/20/23 documented as of this encounter
--- OUTSIDE RECORDS SUMMARY | 2025-08-08 14:39 | XMS_ITS | Encounter Summary ---
Author Organization [facility] work ([facility]) Address [address] [place] [address] Care Team Providers Care Surgical Nurse Name Role Phone Meme Steel MD Primary Care Provider [phone] No Pcp, Pcp Primary Care Provider Unavailabl Guadalupe Bardales MD Primary Care Provider [phone] Sena Dominguez Unavailable [phone] Levy Barry MD Primary Care Provider Unavailab le Source Comments The information that you have received may contain highly confidential and/or federally protected health information. This information has been disclosed to you from records protected by [facility]. The law prohibits [...] sender immediately.[facility] ([facility]) Encounter Details Date Type Department Care Team (Late st Contact Info) Description 10/27/2016 Historical Note [facility] Easiaid System Devyn Vásquez MD [address] [place] [address] [phone] Social History Tobacco Use Types Packs/Day Years [...] Visit LEATHA CARRILLO - [facility] [address] [facility] [address] [place] [phone] Brenda Clay MD [address] [facility] [address] [place] [address] 04/15/2026 10:00 AM EDT Office Visit LEATHA Primary [facility] at [facility] + [facility] [address] [facility] [address] [place] [phone] Sena Dominguez PA [address] [facility] [place] [address] documented as of this encounter Visit Diagnoses Not on filedocumented in this encounter Care Teams Surgical Nurse Relationship Specialty Start Date End Date Meme Steel MD [address] [place] [address] 105 [place] [address] PCP - General Pediatrics 06/05/18 04/25/22 No Pcp, Pcp PCP - General 06/08/22 07/19/22 Guadalupe Mcbride MD PCP - General Family Medicine 07/20/22 11/01/23 Sena Dominguez PA [address] [place] [address] [place] [address] PCP - BRADY Physician Permit Specialist 11/02/23 Levy Barry MD [address] [place] [address] [place] [address] PCP - General Family Medicine 12/20/23 documented as of this encounter
--- OUTSIDE RECORDS SUMMARY | 2025-08-08 14:39 | XMS_ITS | Encounter Summary ---
Author Organization [facility] work ([facility]) Address [address] [place] [address] Care Team Providers Care Industrial Radiographer Name Role Phone Meme Steel MD Primary Care Provider [phone] Pcp, Pcp Primary Care Provider Unavailabl Guadalupe Bardales MD Primary Care Provider [phone] Sena Dominguez Unavailable [phone] Levy Barry MD Primary Care Provider Unavailab le Source Comments The information that you have received may contain highly confidential and/or federally protected health information. This information has been disclosed to you from records protected by [facility]. The law prohibits [...] error, please contact the sender immediately.[facility] ([facility]) Encounter Details Date Type Department Care Team (Late st Contact Info) Description 01/16/2017 Historical Note [facility] irisnote System Devyn Vásquez MD [address] [place] [address] [phone] Social History Tobacco Use Types Packs/Day Years [...] LEATHA CARRILLO - [facility] [address] [facility] [address] [place] [phone] Brenda Clay MD [address] [facility] [address] [place] [address] 04/15/2026 10:00 AM EDT Office Visit LEATHA Primary Care at [facility] + [facility] [address] [facility] [address] [place] [address] Sena Dominguez PA [address] [facility] [place] [address] documented as of this encounter Visit Diagnoses Not on filedocumented in this encounter Care Teams Industrial Radiographer Relationship Specialty Start Date End Date Meme Steel MD [address] [place] [address] 105 [place] [address] PCP - General Pediatrics 06/05/18 04/25/22 No Pcp, Pcp PCP - General 06/08/22 07/19/22 Guadalupe Mcbride MD PCP - General Family Medicine 07/20/22 11/01/23 Sena Dominguez PA [address] [place] [address] [place] [address] PCP - BRADY Physician Real Estate Financial Analyst 11/02/23 Levy Barry MD [address] [place] [address] [place] [address] PCP - General Family Medicine 12/20/23 documented as of this encounter
--- OUTSIDE RECORDS SUMMARY | 2025-08-08 14:39 | XMS_ITS | Continuity of Care Document ---
Author Organization [facility]. Address [address] [place] [address] Phone [phone] Care Team Providers Care In Flight Refueling Manager Name Role Phone Guadalupe Mcbride MD Care Team Information Receiv er Unavailable ANA ROSA RAMOS M.D. Care Team Information Receiv er Unavailable Guadalupe Mcbride MD Primary Care Physician Unava ilable Allergies and adverse reactions Description No Known Drug Allergies Medications Active Medications SIG Qnty Indications Ordering Provider Date Bqncoyrdf68lcz Tablets 1 by mouth every day 90tabs Ana Rosa Ramos M.D. 05/28/2024 OCP Unknown Barb Lucoyuj12yw Tablets Unknown Propranolol YWR58yu Tablets Unknown Ytjcxtulh3nb Tablets Unknown Vitamin D-325mcg (1000 Ut) Capsules Unknown Fluoxetine CSI79qu Capsules Unknown History Medications Wegovy0.25mg/0.5ML Solution Auto-Inject inject 0.25 mg weekly x 4 weeks 2ml Ana Rosa Ramos M.D. 03/25/2024 - 06/26/2024 Sertraline JKS423yq Tablets Un known - 06/26/2024 Results Test Acquired Date Facility Test Result H/L Range Note TSH 07/05/2025 [facility] (Use [facility] Other Sites) [address] [facility] [place] [address] TSH 1.87 mIU/L Normal 1 T4, Free 07/05/2025 [facility] (Use [facility] Other [facility]) [address] [place] [address] [phone] T4, Free 1.3 ng/dL Normal 0.8-1.8 Vitamin D,25-Oh,Total,Ia 07/05/2025 [facility] (Use [facility] Other Sites) [address] [place] [address] [phone] Vitamin D,25-Oh,Total,Ia 29 ng/mL Low 30-100 2 Enhanced PDF Report [id number] 07/05/2025 [facility] (Use [facility] Other Sites) [address] [place] [address] Enhanced PDF Report [id number] PDF IMAGE OFF C-Peptide 04/03/2024 [facility] (Use [facility] Other Sites) [address] [place] [address] C-Peptide 1.72 ng/mL Normal 0.80-3.8 5 3 Insulin 04/03/2024 [facility] (Use [facility] Other Sites) [address] [address] [phone] Insulin 10.9 uIU/mL Normal 4 Basic Metabolic Panel 04/03/2024 [facility] (Use [facility] Other Sites) [address] [address] Glucose 82 mg/dL Normal 65-99 5 Urea [...] [facility] Other Sites) [address] [place] [id number] TSH 4.14 mIU/L Normal 7 T4, Free 04/03/2024 [facility] (Use [facility] Other Sites) [address] [place] [address] T4, Free 1.1 ng/dL Normal 0.8-1.4 Thyroid Peroxidase And Thyroglobulin Abs 04/03/2024 [facility] (Use [facility] Other Sites) [address] [place] [address] Thyroglobulin Antibodies 1 IU/mL Normal < or = 1 Thyroid Peroxidase Antibodies 61 IU/mL High <9 Tsi (Thyroid Stimulating Immunoglobulin) 04/03/2024 [facility] (Use [facility] Other Sites) [address] [place] [id number] Tsi (Thyroid Stimulating Immunoglobulin) <89 %baseline <140 8 PTH Intact And Calcium 04/03/2024 [facility] (Use [facility] Other Sites) [address] [place] [address] [phone] Parathyroid Hormone, Intact 68 pg/mL Normal 16-77 9 Calcium 9.1 mg/dL Normal 8.9-10.4 Vitamin D,25-Oh,Total,Ia 04/03/2024 [facility] (Use [facility] Other Sites) [address] [place] [address] Vitamin D,25-Oh,Total,Ia 39 ng/mL Normal 30-100 10 Albumin 04/03/2024 [facility] (Use [facility] Other Sites) [address] [place] [id number] Albumin 4.0 g/dL Normal 3.6-5.1 Clinical PDF Report [id number] 04/03/2024 [facility] (Use [facility] Other Sites) [address] [place] [id number] Clinical PDF Report [id number] PDF IMAGE OFF Enhanced PDF Report [id number] 04/03/2024 [facility] (Use [facility] For Other Sites) [address] [place] [address] Enhanced PDF Report [id number] PDF IMAGE OFF 1 Reference Range > [...] D2 and D3 fractions is required, the QuestMediaMogulureD(TM) 25-OH VIT D, (D2,D3), LC/MS/MS is recommended: order code [id number] (patients >2yrs). See Note 1 Note 1 For additional information, please refer to http://education.[employer]/faq/NVO036 (This link is being provided for informational/ educational purposes only.) 3 FASTING:YES FASTING: YES 4 Reference Range < or = 18.4 Risk: Optimal < or = 18.4 Moderate NA High >18.4 Adult cardiovascular event risk category cut points (optimal, moderate, high) are based on Insulin Reference Interval studies performed at [facility] in 2021. 5 Fasting reference in terval [...] of this assay have been determined by [facility], [place], [place]. The modifications have not been cleared [...] D, (D2,D3), LC/MS/MS is recommended: order code [id number] (patients >2yrs). See Note 1 Note 1 For additional information, please refer to http://education.[employer].myVBO/faq/UFO851 (This link is being provided for informational/ [...] 11:20 am - Courtney Trejo PA-C at [facility] 12/04/2024 - Courtney Trejo PA-C* E06.3 [...]
--- OUTSIDE RECORDS SUMMARY | 2025-08-08 14:39 | XMS_ITS | Encounter Summary ---
Author Organization [facility] work ([facility]) Address [address] [place] [address] Care Team Providers Care Operational Review Sergeant Name Role Phone Meme Steel MD Primary Care Provider [phone] No Pcp, Pcp Primary Care Provider Unavailabl Guadalupe Bardales MD Primary Care Provider [phone] Sena Dominguez Unavailable Levy Barry MD Primary Care Provider Unavailab le Source Comments The information that you have received may contain highly confidential and/or federally protected health information. This information has been disclosed to you from records protected by [facility]. The law prohibits you from [...] sender immediately.[facility] ([facility]) Encounter Details Date Type Department Care Team (Late st Contact Info) Description 02/06/2010 Historical Note [facility] Coinify System Devyn Vásquez MD [address] [place] [address] [phone] Social History Tobacco Use Types Packs/Day Years [...] CARRILLO - [facility] [address] [facility] [address] [place] [phone] Brenda Clay MD [address] [facility] [address] [place] [address] 04/15/2026 10:00 AM EDT Office Visit LEATHA Primary Care at [facility] + [facility] [address] [facility] [address] [place] [address] Sena Dominguez PA [address] [facility] [place] [address] documented as of this encounter Visit Diagnoses Not on filedocumented in this encounter Care Teams Operational Review Sergeant Relationship Specialty Start Date End Date Meme Steel MD [address] [place] [address] 105 [place] [address] PCP - General Pediatrics 06/05/18 04/25/22 No Pcp, Pcp PCP - General 06/08/22 07/19/22 Guadalupe Mcbride MD PCP - General Family Medicine 07/20/22 11/01/23 Sena Dominguez PA [address] [place] [address] [place] [address] PCP - BRADY Physician Surgical Instrument Technician 11/02/23 Levy Barry MD [address] [place] [address] [place] [address] PCP - General Family Medicine 12/20/23 documented as of this encounter
--- OUTSIDE RECORDS SUMMARY | 2025-08-08 14:39 | XMS_ITS | Encounter Summary ---
Author Organization [facility] work ([facility]) Address [address] [place] [address] Care Team Providers Care Leak Patcher Name Role Phone Meme Steel MD Primary Care Provider [phone] No Pcp, Pcp Primary Care Provider Unavailabl Guadalupe Bardales MD Primary Care Provider [phone] Sena Dominguez Unavailable [phone] Levy Barry MD Primary Care Provider Unavailab le Source Comments The information that you have received may contain highly confidential and/or federally protected health information. This information has been disclosed to you from records protected by [facility]. The law prohibits you from [...] error, please contact the sender immediately.[facility] ([facility]) Encounter Details Date Type Department Care Team (Late st Contact Info) Description 09/21/2010 Historical Note [facility] KO-SU System Devyn Vásquez MD [address] [place] [address] [phone] Social History Tobacco Use Types Packs/Day Years [...] CARRILLO - [facility] [address] [facility] [address] [place] [phone] Brenda Clay MD [address] [facility] [address] [place] [address] 04/15/2026 10:00 AM EDT Office Visit LEATHA Primary Care at [facility] + [facility] [address] [facility] [address] [place] [address] Sena Dominguez PA [address] [facility] [place] [address] documented as of this encounter Visit Diagnoses Not on filedocumented in this encounter Care Teams Leak Patcher Relationship Specialty Start Date End Date Meme Steel MD [address] [place] [address] 105 [place] [address] PCP - General Pediatrics 06/05/18 04/25/22 No Pcp, Pcp PCP - General 06/08/22 07/19/22 Guadalupe Mcbride MD PCP - General Family Medicine 07/20/22 11/01/23 Sena Dominguez PA [address] [place] [address] [place] [address] PCP - BRADY Physician Market Specialist 11/02/23 Levy Barry MD [address] [place] [address] [place] [address] PCP - General Family Medicine 12/20/23 documented as of this encounter
--- OUTSIDE RECORDS SUMMARY | 2025-08-08 14:39 | XMS_ITS | Encounter Summary ---
Author Organization [facility] work ([facility]) Address [address] [place] [address] Care Team Providers Care Professor Of Early Childhood Education Name Role Phone Meme Steel MD Primary Care Provider [phone] No Pcp, Pcp Primary Care Provider Unavailabl Guadalupe Bardales MD Primary Care Provider [phone] Sena Dominguez Unavailable Levy Barry MD Primary Care Provider Unavailab le Source Comments The information that you have received may contain highly confidential and/or federally protected health information. This information has been disclosed to you from records protected by [facility]. The law prohibits you from [...] immediately.[facility] ([facility]) Encounter Details Date Type Department Care Team (Late st Contact Info) Description 06/30/2005 Historical Note [facility] RUNform System Devyn Vásquez MD [address] [place] [address] [phone] Social History Tobacco Use Types Packs/Day Years [...] LEATHA CARRILLO - [facility] at [facility] [address] [facility] [address] [place] [phone] Brenda Clay MD [address] [facility] [address] [place] [phone] 04/15/2026 10:00 AM EDT Office Visit LEATHA Primary Care at [facility] + [facility] [address] [facility] [address] [place] [address] Sena Dominguez PA [address] [facility] [place] [address] documented as of this encounter Visit Diagnoses Not on filedocumented in this encounter Care Teams Professor Of Early Childhood Education Relationship Specialty Start Date End Date Meme Steel MD [address] [place] [address] 105 [place] [address] PCP - General Pediatrics 06/05/18 04/25/22 No Pcp, Pcp PCP - General 06/08/22 07/19/22 Guadalupe Mcbride MD PCP - General Family Medicine 07/20/22 11/01/23 Sena Dominguez PA [address] [place] [address] [place] [address] PCP - BRADY Physician Blasting Entry Specialist 11/02/23 Levy Barry MD [address] [place] [address] [place] [address] PCP - General Family Medicine 12/20/23 documented as of this encounter
--- OUTSIDE RECORDS SUMMARY | 2025-08-08 14:39 | XMS_ITS | Encounter Summary ---
Author Organization [facility] work ([facility]) Address [address] [place] [address] Care Team Providers Care Shoe Salesman Name Role Phone Meme Steel MD Primary Care Provider [phone] No Pcp, Pcp Primary Care Provider Unavailabl Guadalupe Bardales MD Primary Care Provider [phone] Sena Dominguez Unavailable [phone] Levy Barry MD Primary Care Provider Unavailab le Source Comments The information that you have received may contain highly confidential and/or federally protected health information. This information has been disclosed to you from records protected by [facility]. The [...] sender immediately.[facility] ([facility]) Encounter Details Date Type Department Care Team (Late st Contact Info) Description 01/16/2017 Historical Note [facility] Driverdo System Devyn Vásquez MD [address] [place] [address] [phone] Social History Tobacco Use Types Packs/Day Years [...] CARRILLO - [facility] [address] [facility] [address] [place] [phone] Brenda Clay MD [address] [facility] [address] [place] [address] 04/15/2026 10:00 AM EDT Office Visit LEATHA Primary [facility] at [facility] + [facility] [address] [facility] [address] [place] [phone] Sena Dominguez PA [address] [facility] [place] [address] documented as of this encounter Visit Diagnoses Not on filedocumented in this encounter Care Teams Shoe Salesman Relationship Specialty Start Date End Date Meme Steel MD [address] [place] [address] 105 [place] [address] PCP - General Pediatrics 06/05/18 04/25/22 No Pcp, Pcp PCP - General 06/08/22 07/19/22 Guadalupe Mcbride MD PCP - General Family Medicine 07/20/22 11/01/23 Sena Dominguez PA [address] [place] [address] [place] [address] PCP - BRADY Physician Open Soaper Tender 11/02/23 Levy Barry MD [address] [place] [address] [place] [address] PCP - General Family Medicine 12/20/23 documented as of this encounter
--- OUTSIDE RECORDS SUMMARY | 2025-08-08 14:39 | XMS_ITS | Encounter Summary ---
Author Organization [facility] work ([facility]) Address [address] [place] [address] Care Team Providers Care Ekg Manager Name Role Phone Meme Steel MD Primary Care Provider No Pcp, Pcp Primary Care Provider Unavailabl Guadalupe Bardales MD Primary Care Provider Sena Dominguez Unavailable Levy Barry MD Primary Care Provider Unavailab le Source Comments The information that you have received may contain highly confidential and/or federally protected health information. This information has been disclosed to you from records protected by [facility]. The law prohibits [...] sender immediately.[facility] ([facility]) Encounter Details Date Type Department Care Team (Late st Contact Info) Description 06/24/2005 Historical Note [facility] Exitround System Devyn Vásquez MD [address] [place] [address] [phone] Social History Tobacco Use Types Packs/Day Years [...] Visit LEATHA CARRILLO - [facility] [address] [facility] [address] [place] [phone] Brenda Clay MD [address] [facility] [address] [place] [phone] 04/15/2026 10:00 AM EDT Office Visit LEATHA Primary [facility] at [facility] + [facility] [address] [facility] [address] [place] [address] Sena Dominguez PA [address] [facility] [place] [address] documented as of this encounter Visit Diagnoses Not on filedocumented in this encounter Care Teams Ekg Manager Relationship Specialty Start Date End Date Meme Steel MD [address] [place] [address] 105 [place] [address] PCP - General Pediatrics 06/05/18 04/25/22 No Pcp, Pcp PCP - General 06/08/22 07/19/22 Guadalupe Mcbride MD PCP - General Family Medicine 07/20/22 11/01/23 Sena Dominguez PA [address] [place] [address] [place] [address] PCP - BRADY Physician Records Technician 11/02/23 Levy Barry MD [address] [place] [address] [place] [address] PCP - General Family Medicine 12/20/23 documented as of this encounter
--- OUTSIDE RECORDS SUMMARY | 2025-08-08 14:39 | XMS_ITS | Encounter Summary ---
Author Organization [facility] work ([facility]) Address [address] [place] [address] Care Team Providers Care Check Services Clerk Name Role Phone Meme Steel MD Primary Care Provider [phone] Pcp, Pcp Primary Care Provider Unavailabl Guadalupe Bardales MD Primary Care Provider [phone] Sena Dominguez Unavailable [phone] Levy Barry MD Primary Care Provider Unavailab le Source Comments The information that you have received may contain highly confidential and/or federally protected health information. This information has been disclosed to you from records protected by [facility]. The law prohibits you from making [...] sender immediately.[facility] ([facility]) Encounter Details Date Type Department Care Team (Late st Contact Info) Description 10/27/2016 Historical Note [facility] Inf[employer]ion[employer] System Devyn Vásquez MD [address] [place] [address] [phone] Social History Tobacco Use Types Packs/Day Years [...] CARRILLO - [facility] [address] [facility] [address] [place] [phone] Brenda Clay MD [address] [facility] [address] [place] [address] 04/15/2026 10:00 AM EDT Office Visit [facility] + [facility] [address] [facility] [address] [place] [address] Sena Dominguez PA [address] [facility] [place] [address] documented as of this encounter Visit Diagnoses Not on filedocumented in this encounter Care Teams Check Services Clerk Relationship Specialty Start Date End Date Meme Steel MD [address] [place] [address] 105 [place] [address] PCP - General Pediatrics 06/05/18 04/25/22 No Pcp, Pcp PCP - General 06/08/22 07/19/22 Guadalupe Mcbride MD PCP - General Family Medicine 07/20/22 11/01/23 Sena Dominguez PA [address] [place] [address] [place] [address] PCP - BRADY Physician Customer Care Specialist 11/02/23 Levy Barry MD [address] [place] [address] [place] [address] PCP - General Family Medicine 12/20/23 documented as of this encounter
--- OUTSIDE RECORDS SUMMARY | 2025-08-08 14:39 | XMS_ITS | Encounter Summary ---
Author Organization [facility] work ([facility]) Address [address] [place] [address] Care Team Providers Care Library Media Technician Name Role Phone Meme Steel MD Primary Care Provider [phone] Pcp, Pcp Primary Care Provider Unavailabl Guadalupe Bardales MD Primary Care Provider [phone] Sena Dominguez Unavailable [phone] Levy Barry MD Primary Care Provider Unavailab le Source Comments The information that you have received may contain highly confidential and/or federally protected health information. This information has been disclosed to you from records protected by [facility]. The law prohibits you from [...] sender immediately.[facility] ([facility]) Encounter Details Date Type Department Care Team (Late st Contact Info) Description 08/17/2010 Historical Note [facility] LightArrow System Devyn Vásquez MD [address] [place] [address] [phone] Social History Tobacco Use Types Packs/Day Years [...] LEATHA CARRILLO - [facility] [address] [facility] [address] [place] [phone] Brenda Clay MD [address] [facility] [address] [place] [address] 04/15/2026 10:00 AM EDT Office Visit [facility] [address] [facility] [address] [place] [address] Sena Dominguez PA [address] [facility] [place] [address] documented as of this encounter Visit Diagnoses Not on filedocumented in this encounter Care Teams Library Media Technician Relationship Specialty Start Date End Date Meme Steel MD [address] [place] [address] 105 [place] [address] PCP - General Pediatrics 06/05/18 04/25/22 No Pcp, Pcp PCP - General 06/08/22 07/19/22 Guadalupe Mcbride MD PCP - General Family Medicine 07/20/22 11/01/23 Sena Dominguez PA [address] [place] [address] [place] [address] PCP - BRADY Physician Plumbers And Top Helpers 11/02/23 Levy Barry MD [address] [place] [address] [place] [address] PCP - General Family Medicine 12/20/23 documented as of this encounter
--- OUTSIDE RECORDS SUMMARY | 2025-08-08 14:39 | XMS_ITS | Encounter Summary ---
Author Organization [facility] work ([facility]) Address [address] [place] [address] Care Team Providers Care Automatic Pinsetter Adjuster Name Role Phone Meme Steel MD Primary Care Provider [phone] Pcp, Pcp Primary Care Provider Unavailabl Guadalupe Bardales MD Primary Care Provider [phone] Sena Dominguez Unavailable [phone] Levy Barry MD Primary Care Provider Unavailab le Source Comments The information that you have received may contain highly confidential and/or federally protected health information. This information has been disclosed to you from records protected by [facility]. The law prohibits you from [...] the sender immediately.[facility] ([facility]) Encounter Details Date Type Department Care Team (Late st Contact Info) Description 08/30/2005 Historical Note [facility] SSN Logistics System Devyn Vásquez MD [address] [place] [address] [phone] Social History Tobacco Use Types Packs/Day Years [...] LEATHA CARRILLO - [facility] [address] [facility] [address] [place] [phone] Brenda Clay MD [address] [facility] [address] [place] [address] 04/15/2026 10:00 AM EDT Office Visit [facility] at [facility] + [facility] [address] [facility] [address] [place] [address] Sena Dominguez PA [address] [facility] [place] [address] documented as of this encounter Visit Diagnoses Not on filedocumented in this encounter Care Teams Automatic Pinsetter Adjuster Relationship Specialty Start Date End Date Meme Steel MD [address] [place] [address] 105 [place] [address] PCP - General Pediatrics 06/05/18 04/25/22 No Pcp, Pcp PCP - General 06/08/22 07/19/22 Guadalupe Mcbride MD PCP - General Family Medicine 07/20/22 11/01/23 Sena Dominguez PA [address] [place] [address] [place] [address] PCP - BRADY Physician Freight Clerk 11/02/23 Levy Barry MD [address] [place] [address] [place] [address] PCP - General Family Medicine 12/20/23 documented as of this encounter
--- OUTSIDE RECORDS SUMMARY | 2025-08-08 14:39 | XMS_ITS | Encounter Summary ---
Author Organization [facility] work ([facility]) Address [address] [place] [address] Care Team Providers Care Dispatch Specialist Name Role Phone Meme Steel MD Primary Care Provider [phone] No Pcp, Pcp Primary Care Provider Unavailabl Guadalupe Bardales MD Primary Care Provider [phone] Sena Dominguez Unavailable [phone] Levy Barry MD Primary Care Provider Unavailab le Source Comments The information that you have received may contain highly confidential and/or federally protected health information. This information has been disclosed to you from records protected by [facility]. The law prohibits you from [...] sender immediately.[facility] ([facility]) Encounter Details Date Type Department Care Team (Late st Contact Info) Description 09/05/2008 Historical Note [facility] Biotix System Devyn Vásquez MD [address] [place] [address] [phone] Social History Tobacco Use Types Packs/Day Years [...] LEATHA CARRILLO - [facility] [address] [facility] [address] [place] [phone] Brenda Clay MD [address] [facility] [address] [place] [address] 04/15/2026 10:00 AM EDT Office Visit [facility]HA Primary [facility] at [facility] + [facility] [address] [facility] [address] [place] [address] Sena Dominguez PA [address] [facility] [place] [address] documented as of this encounter Visit Diagnoses Not on filedocumented in this encounter Care Teams Dispatch Specialist Relationship Specialty Start Date End Date Meme Steel MD [address] [place] [address] 105 [place] [address] PCP - General Pediatrics 06/05/18 04/25/22 No Pcp, Pcp PCP - General 06/08/22 07/19/22 Guadalupe Mcbride MD PCP - General Family Medicine 07/20/22 11/01/23 Sena Dominguez PA [address] [place] [address] [place] [address] PCP - BRADY Physician Pc Network Technician 11/02/23 Levy Barry MD [address] [place] [address] [place] [address] PCP - General Family Medicine 12/20/23 documented as of this encounter
--- OUTSIDE RECORDS SUMMARY | 2025-08-08 14:39 | XMS_ITS | Encounter Summary ---
Author Organization [facility] work ([facility]) Address [address] [place] [address] Care Team Providers Care Funeral Greeter Name Role Phone Meme Steel MD Primary Care Provider [phone] Pcp, Pcp Primary Care Provider Unavailabl Guadalupe Bardales MD Primary Care Provider [phone] Sena Dominguez Unavailable [phone] Levy Barry MD Primary Care Provider Unavailab le Source Comments The information that you have received may contain highly confidential and/or federally protected health information. This information has been disclosed to you from records protected by [facility]. The law prohibits you [...] please contact the sender immediately.[facility] ([facility]) Encounter Details Date Type Department Care Team (Late st Contact Info) Description 06/30/2005 Historical Note [facility] PurePlay System Devyn Vásquez MD [address] [place] [address] [phone] Social History Tobacco Use Types Packs/Day Years [...] Visit LEATHA CARRILLO - [facility] [address] [facility] [address] [place] [phone] Brenda Clay MD [address] [facility] [address] [place] [address] 04/15/2026 10:00 AM EDT Office Visit LE[facility]HA Primary [facility] at [facility] + [facility] [address] [facility] [address] [place] [address] Sena Dominguez PA [address] [facility] [place] [address] documented as of this encounter Visit Diagnoses Not on filedocumented in this encounter Care Teams Funeral Greeter Relationship Specialty Start Date End Date Meme Steel MD [address] [place] [address] 105 [place] [address] PCP - General Pediatrics 06/05/18 04/25/22 No Pcp, Pcp PCP - General 06/08/22 07/19/22 Guadalupe Mcbride MD PCP - General Family Medicine 07/20/22 11/01/23 Sena Dominguez PA [address] [place] [address] [place] [address] PCP - BRADY Physician Press Setup Operator 11/02/23 Levy Barry MD [address] [place] [address] [place] [address] PCP - General Family Medicine 12/20/23 documented as of this encounter
--- OUTSIDE RECORDS SUMMARY | 2025-08-08 14:39 | XMS_ITS | Encounter Summary ---
Author Organization [facility] work ([facility]) Address [address] [place] [address] Care Team Providers Care Fork Lift Mechanic Name Role Phone Meme Steel MD Primary Care Provider [phone] No Pcp, Pcp Primary Care Provider Unavailabl Guadalupe Bardales MD Primary Care Provider [phone] Sena Dominguez Unavailable [phone] Levy Barry MD Primary Care Provider Unavailab le Source Comments The information that you have received may contain highly confidential and/or federally protected health information. This information has been disclosed to you from records protected by [employer] [facility]. The law prohibits you from [...] contact the sender immediately.[facility] ([facility]) Encounter Details Date Type Department Care Team (Late st Contact Info) Description 01/16/2017 Historical Note [facility] Everywun System Devyn Vásquez MD [address] [place] [address] [phone] Social History Tobacco Use Types Packs/Day Years [...] CARRILLO - [facility] [address] [facility] [address] [place] [phone] Brenda Clay MD [address] [facility] [address] [place] [address] 04/15/2026 10:00 AM EDT Office Visit [facility]HA [facility] at [facility] + [facility] [address] [facility] [address] [place] [address] Sena Dominguez PA [address] [facility] [place] [address] documented as of this encounter Visit Diagnoses Not on filedocumented in this encounter Care Teams Fork Lift Mechanic Relationship Specialty Start Date End Date Meme Steel MD [address] [place] [address] 105 [place] [address] PCP - General Pediatrics 06/05/18 04/25/22 No Pcp, Pcp PCP - General 06/08/22 07/19/22 Guadalupe Mcbride MD PCP - General Family Medicine 07/20/22 11/01/23 Sena Dominguez PA [address] [place] [address] [place] [address] PCP - BRADY Physician Allopathic Doctor 11/02/23 Levy Barry MD [address] [place] [address] [place] [address] PCP - General Family Medicine 12/20/23 documented as of this encounter
--- OUTSIDE RECORDS SUMMARY | 2025-08-08 14:39 | XMS_ITS | Encounter Summary ---
Author Organization [facility] work ([facility]) Address [address] [place] [address] Care Team Providers Care Java Developer Analyst Name Role Phone Meme Steel MD Primary Care Provider [phone] No Pcp, Pcp Primary Care Provider Unavailabl Guadalupe Bardales MD Primary Care Provider [phone] Sena Dominguez Unavailable [phone] Levy Barry MD Primary Care Provider Unavailab le Source Comments The information that you have received may contain highly confidential and/or federally protected health information. This information has been disclosed to you from records protected by [facility]. The law prohibits you [...] error, please contact the sender immediately.[facility] ([facility]) Encounter Details Date Type Department Care Team (Late st Contact Info) Description 10/27/2016 Historical Note [facility] MGT Capital Investments System Devyn Vásquez MD [address] [place] [address] [phone] Social History Tobacco Use Types Packs/Day Years [...] Within [facility] [address] [facility] [address] [place] [phone] Brenda Clay MD [address] [facility] [address] [place] [address] 04/15/2026 10:00 AM EDT Office Visit [facility]HA Primary [facility] at [facility] + [facility] [address] [facility] [address] [place] [address] Sena Dominguez PA [address] [facility] [place] [address] documented as of this encounter Visit Diagnoses Not on filedocumented in this encounter Care Teams Java Developer Analyst Relationship Specialty Start Date End Date Meme Steel MD [address] [place] [address] 105 [place] [address] PCP - General Pediatrics 06/05/18 04/25/22 No Pcp, Pcp PCP - General 06/08/22 07/19/22 Guadalupe Mcbride MD PCP - General Family Medicine 07/20/22 11/01/23 Sena Dominguez PA [address] [place] [address] [place] [address] PCP - BRADY Physician Stone Polisher 11/02/23 Levy Barry MD [address] [place] [address] [place] [address] PCP - General Family Medicine 12/20/23 documented as of this encounter
--- OUTSIDE RECORDS SUMMARY | 2025-08-08 14:39 | XMS_ITS | Encounter Summary ---
Author Organization [facility] work ([facility]) Address [address] [facility] [address] [facility] [address] [place] [address] Care Team Providers Care Towel Hemmer Name Role Phone Meme Steel MD Primary Care Provider [phone] No Pcp, Pcp Primary Care Provider Unavailabl Guadalupe Bardales MD Primary Care Provider [phone] Sena Dominguez Unavailable [phone] Levy Barry MD Primary Care Provider Unavailab le Source Comments The information that you have received may contain highly confidential and/or federally protected health information. This information has been disclosed to you from records protected by [facility]. The law prohibits you [...] contact the sender immediately.[facility] ([facility]) Encounter Details Date Type Department Care Team (Late st Contact Info) Description 10/07/2015 Historical Note [facility] AisleBuyer System Devyn Vásquez MD [address] [place] [address] [phone] Social History Tobacco Use Types Packs/Day Years [...] - [facility] [address] [facility] [address] [place] [phone] Brenda Clay MD [address] [facility] [address] [place] [address] 04/15/2026 10:00 AM EDT Office Visit LEATHA Primary [facility] at [facility] + [facility] [address] [facility] [address] [place] [address] eSna Dominguez PA [address] [facility] [place] [address] documented as of this encounter Visit Diagnoses Not on filedocumented in this encounter Care Teams Towel Hemmer Relationship Specialty Start Date End Date Meme Steel MD [address] [place] [address] 105 [place] [address] PCP - General Pediatrics 06/05/18 04/25/22 No Pcp, Pcp PCP - General 06/08/22 07/19/22 Guadalupe Mcbride MD PCP - General Family Medicine 07/20/22 11/01/23 Sena Dominguez PA [address] [place] [address] [place] [address] PCP - BRADY Physician Stave Mill Hand 11/02/23 Levy Barry MD [address] [place] [address] [place] [address] PCP - General Family Medicine 12/20/23 documented as of this encounter
--- OUTSIDE RECORDS SUMMARY | 2025-08-08 14:39 | XMS_ITS | Encounter Summary ---
Author Organization [facility] work ([facility]) Address [address] [place] [address] Care Team Providers Care Farm Machinery Engine Mechanic Name Role Phone Meme Steel MD Primary Care Provider [phone] Pcp, Pcp Primary Care Provider Unavailabl Guadalupe Bardales MD Primary Care Provider [phone] Sena Dominguez Unavailable [phone] Levy Barry MD Primary Care Provider Unavailab le Source Comments The information that you have received may contain highly confidential and/or federally protected health information. This information has been disclosed to you from records protected by [facility]. The law prohibits you from [...] please contact the sender immediately.[facility] ([facility]) Encounter Details Date Type Department Care Team (Late st Contact Info) Description 02/06/2010 Historical Note [facility] Cloud Content System Devyn Vásquez MD [address] [place] [address] [phone] Social History Tobacco Use Types Packs/Day Years [...] Visit LEATHA CARRILLO - [facility] [address] [facility] [address] [place] [phone] Brenda Clay MD [address] [facility] [address] [place] [address] 04/15/2026 10:00 AM EDT Office Visit LEATHA Primary [facility] at [facility] + [facility] [address] [facility] [address] [place] [address] Sena Dominguez PA [address] [facility] [place] [address] documented as of this encounter Visit Diagnoses Not on filedocumented in this encounter Care Teams Farm Machinery Engine Mechanic Relationship Specialty Start Date End Date Meme Steel MD [address] [place] [address] 105 [place] [address] PCP - General Pediatrics 06/05/18 04/25/22 No Pcp, Pcp PCP - General 06/08/22 07/19/22 Guadalupe Mcbride MD PCP - General Family Medicine 07/20/22 11/01/23 Sena Dominguez PA [address] [place] [address] [place] [address] PCP - BRADY Physician Extrusion Bender 11/02/23 Levy Barry MD [address] [place] [address] [place] [address] PCP - General Family Medicine 12/20/23 documented as of this encounter
--- OUTSIDE RECORDS SUMMARY | 2025-08-08 14:39 | XMS_ITS | Encounter Summary ---
Author Organization [facility] work ([facility]) Address [address] [place] [address] Care Team Providers Care Document Controller Name Role Phone Meme Steel MD Primary Care Provider [phone] No Pcp, Pcp Primary Care Provider Unavailabl Guadalupe Bardales MD Primary Care Provider [phone] Sena Dominguez Unavailable [phone] Levy Barry MD Primary Care Provider Unavailab le Source Comments The information that you have received may contain highly confidential and/or federally protected health information. This information has been disclosed to you from records protected by [facility]. The law prohibits you [...] the sender immediately.[facility] ([facility]) Encounter Details Date Type Department Care Team (Late st Contact Info) Description 10/27/2016 Historical Note [facility] [employer] Devyn Vásquez MD [address] [place] [address] [phone] Social History Tobacco Use Types Packs/Day Years [...] LEATHA CARRILLO - [facility] [address] [facility] [address] [place] [phone] Brenda Clay MD [address] [facility] [address] [place] [address] 04/15/2026 10:00 AM EDT Office Visit [facility]HA Primary [facility] at [facility] + [facility] [address] [facility] [address] [place] [address] Sena Dominguez PA [address] [facility] [place] [address] documented as of this encounter Visit Diagnoses Not on filedocumented in this encounter Care Teams Document Controller Relationship Specialty Start Date End Date Meme Steel MD [address] [place] [address] 105 [place] [address] PCP - General Pediatrics 06/05/18 04/25/22 No Pcp, Pcp PCP - General 06/08/22 07/19/22 Guadalupe Mcbride MD PCP - General Family Medicine 07/20/22 11/01/23 Sena Dominguez PA [address] [place] [address] [place] [address] PCP - BRADY Physician Senior It Business Analyst 11/02/23 Levy Barry MD [address] [place] [address] [place] [address] PCP - General Family Medicine 12/20/23 documented as of this encounter
--- OUTSIDE RECORDS SUMMARY | 2025-08-08 14:39 | XMS_ITS | Encounter Summary ---
Author Organization [facility] work ([facility]) Address [address] [place] [address] Care Team Providers Care Reliner Name Role Phone Meme Steel MD Primary Care Provider [phone] Pcp, Pcp Primary Care Provider Unavailabl Guadalupe Bardales MD Primary Care Provider [phone] Sena Dominguez Unavailable [phone] Levy Barry MD Primary Care Provider Unavailab le Source Comments The information that you have received may contain highly confidential and/or federally protected health information. This information has been disclosed to you from records protected by [facility]. The law prohibits you from [...] sender immediately.[facility] ([facility]) Encounter Details Date Type Department Care Team (Late st Contact Info) Description 08/30/2005 Historical Note [facility] [employer] System Devyn Vásquez MD [address] [place] [address] [phone] Social History Tobacco Use Types Packs/Day Years [...] CARRILLO - [facility] at [facility] [address] [facility] [address] [place] [phone] Brenda Clay MD [address] [facility] [address] [place] [address] 04/15/2026 10:00 AM EDT Office Visit [facility]HA [facility] at [facility] + [facility] [address] [facility] [address] [place] [address] Sena Dominguez PA [address] [facility] [place] [address] documented as of this encounter Visit Diagnoses Not on filedocumented in this encounter Care Teams Reliner Relationship Specialty Start Date End Date Meme Steel MD [address] [place] [address] 105 [place] [address] PCP - General Pediatrics 06/05/18 04/25/22 No Pcp, Pcp PCP - General 06/08/22 07/19/22 Guadalupe Mcbride MD PCP - General Family Medicine 07/20/22 11/01/23 Sena Dominguez PA [address] [place] [address] [place] [address] PCP - BRADY Physician Isotope Hydrologist 11/02/23 Levy Barry MD [address] [place] [address] [place] [address] PCP - General Family Medicine 12/20/23 documented as of this encounter
--- OUTSIDE RECORDS SUMMARY | 2025-08-08 14:39 | XMS_ITS | Encounter Summary ---
Author Organization [facility] work ([facility]) Address [address] [place] [address] Care Team Providers Care Cashier Gambling Name Role Phone Meme Steel MD Primary Care Provider [phone] Pcp, Pcp Primary Care Provider Unavailabl Guadalupe Bardales MD Primary Care Provider Sena Dominguez Unavailable [phone] Levy Barry MD Primary Care Provider Unavailab le Source Comments The information that you have received may contain highly confidential and/or federally protected health information. This information has been disclosed to you from records protected by [facility]. The law prohibits you [...] contact the sender immediately.[facility] ([facility]) Encounter Details Date Type Department Care Team (Late st Contact Info) Description 10/27/2016 Historical Note [facility] MTPV System Devyn Vásquez MD [address] [place] [address] [phone] Social History Tobacco Use Types Packs/Day Years [...] - [facility] [address] [facility] [address] [place] [phone] Brenda Clay MD [address] [facility] [address] [place] [address] 04/15/2026 10:00 AM EDT Office Visit LEATHA Primary [facility] at [facility] [address] [facility] [address] [facility] [address] [place] [address] Sena Dominguez PA [address] [facility] [place] [address] documented as of this encounter Visit Diagnoses Not on filedocumented in this encounter Care Teams Cashier Gambling Relationship Specialty Start Date End Date Meme Steel MD [address] [place] [address] 105 [place] [address] PCP - General Pediatrics 06/05/18 04/25/22 No Pcp, Pcp PCP - General 06/08/22 07/19/22 Guadalupe Mcbride MD PCP - General Family Medicine 07/20/22 11/01/23 Sena Dominguez PA [address] [place] [address] [place] [address] PCP - BRADY Physician Power Tong Operator 11/02/23 Levy Barry MD [address] [place] [address] [place] [address] PCP - General Family Medicine 12/20/23 documented as of this encounter
--- OUTSIDE RECORDS SUMMARY | 2025-08-08 14:39 | XMS_ITS | Encounter Summary ---
Author Organization [facility] work ([facility]) Address [address] [place] [address] Care Team Providers Care Track Moving Machine Operator Name Role Phone Meme Steel MD Primary Care Provider [phone] Pcp, Pcp Primary Care Provider Unavailabl Guadalupe Bardales MD Primary Care Provider [phone] Sena Dominguez Unavailable [phone] Levy Barry MD Primary Care Provider Unavailab le Source Comments The information that you have received may contain highly confidential and/or federally protected health information. This information has been disclosed to you from records protected by [facility]. The law prohibits you from [...] please contact the sender immediately.[facility] ([facility]) Encounter Details Date Type Department Care Team (Late st Contact Info) Description 09/28/2005 Historical Note [facility] [employer] System Devyn Vásquez MD [address] [place] [address] [phone] Social History Tobacco Use Types Packs/Day Years [...] LEATHA CARRILLO - [facility] [address] [facility] [address] [place] [phone] Brenda Clay MD [address] [facility] [address] [place] [phone] 04/15/2026 10:00 AM EDT Office Visit LEATHA Primary [facility] at [facility] + [facility] [address] [facility] [address] [place] [address] Sena Dominguez PA [address] [facility] [place] [address] documented as of this encounter Visit Diagnoses Not on filedocumented in this encounter Care Teams Track Moving Machine Operator Relationship Specialty Start Date End Date Meme Steel MD [address] [place] [address] 105 [place] [address] PCP - General Pediatrics 06/05/18 04/25/22 No Pcp, Pcp PCP - General 06/08/22 07/19/22 Guadalupe Mcbride MD PCP - General Family Medicine 07/20/22 11/01/23 Sena Dominguez PA [address] [place] [address] [place] [address] PCP - BRADY Physician Gate Watch 11/02/23 Levy Barry MD [address] [place] [address] [place] [address] PCP - General Family Medicine 12/20/23 documented as of this encounter
--- OUTSIDE RECORDS SUMMARY | 2025-08-08 14:39 | XMS_ITS | Encounter Summary ---
Author Organization [facility] work ([facility]) Address [address] [place] [address] Care Team Providers Care Receiving Worker Name Role Phone Meme Steel MD Primary Care Provider [phone] Pcp, Pcp Primary Care Provider Unavailabl Guadalupe Bardales MD Primary Care Provider [phone] Sena Dominguez Unavailable [phone] Levy Barry MD Primary Care Provider Unavailab le Source Comments The information that you have received may contain highly confidential and/or federally protected health information. This information has been disclosed to you from records protected by [facility]. The law prohibits you from making [...] please contact the sender immediately.[facility] ([facility]) Encounter Details Date Type Department Care Team (Late st Contact Info) Description 10/05/2015 Historical Note [facility] [employer] System Devyn Vásquez MD [address] [place] [address] [phone] Social History Tobacco Use Types Packs/Day Years [...] Office Visit LEATHA CARRILLO - [facility] [address] [facility] [address] [place] [phone] Brenda Clay MD [address] [facility] [address] [place] [address] 04/15/2026 10:00 AM EDT Office Visit [facility] [address] [facility] [address] [place] [address] Sena Dominguez PA [address] [facility] [place] [address] documented as of this encounter Visit Diagnoses Not on filedocumented in this encounter Care Teams Receiving Worker Relationship Specialty Start Date End Date Meme Steel MD [address] [place] [address] 105 [place] [address] PCP - General Pediatrics 06/05/18 04/25/22 No Pcp, Pcp PCP - General 06/08/22 07/19/22 Guadalupe Mcbride MD PCP - General Family Medicine 07/20/22 11/01/23 Sena Dominguez PA [address] [place] [address] [place] [address] PCP - BRADY Physician Crate Liner 11/02/23 Levy Barry MD [address] [place] [address] [place] [address] PCP - General Family Medicine 12/20/23 documented as of this encounter
--- OUTSIDE RECORDS SUMMARY | 2025-08-08 14:39 | XMS_ITS | Encounter Summary ---
Author Organization [facility] work ([facility]) Address [address] [place] [address] Care Team Providers Care Director Furniture Name Role Phone Meme Steel MD Primary Care Provider [phone] Pcp, Pcp Primary Care Provider Unavailabl Guadalupe Bardales MD Primary Care Provider [phone] Sena Dominguez Unavailable [phone] Levy Barry MD Primary Care Provider Unavailab le Source Comments The information that you have received may contain highly confidential and/or federally protected health information. This information has been disclosed to you from records protected by [facility]. The law prohibits [...] immediately.[facility] ([facility]) Encounter Details Date Type Department Care Team (Late st Contact Info) Description 2004 Historical Note [facility] MONOCO System Devyn Vásquez MD [address] [place] [address] [phone] Social History Tobacco Use Types Packs/Day Years [...] [facility] at [facility] [address] [facility] [address] [place] [phone] Brenda Clay MD [address] [facility] [address] [place] [address] 04/15/2026 10:00 AM EDT Office Visit LEATHA Primary Care at [facility] + [facility] [address] [facility] [address] [place] [address] Sena Dominguez PA [address] [facility] [place] [address] documented as of this encounter Visit Diagnoses Not on filedocumented in this encounter Care Teams Director Furniture Relationship Specialty Start Date End Date Meme Steel MD [address] [place] [address] 105 [place] [address] PCP - General Pediatrics 06/05/18 04/25/22 No Pcp, Pcp PCP - General 06/08/22 07/19/22 Guadalupe Mcbride MD PCP - General Family Medicine 07/20/22 11/01/23 Sena Dominguez PA [address] [place] [address] [place] [address] PCP - BRADY Physician Support Services Manager 11/02/23 Levy Barry MD [address] [place] [address] [place] [address] PCP - General Family Medicine 12/20/23 documented as of this encounter
--- OUTSIDE RECORDS SUMMARY | 2025-08-08 14:40 | XMS_ITS | Encounter Summary ---
Author Organization [facility] work ([facility]) Address [address] [place] [address] Care Team Providers Care Mandarin Speaking Nanny Name Role Phone Meme Steel MD Primary Care Provider [phone] Pcp, Pcp Primary Care Provider Unavailabl Guadalupe Bardales MD Primary Care Provider [phone] Sena Dominguez Unavailable [phone] Levy Barry MD Primary Care Provider Unavailab le Source Comments The information that you have received may contain highly confidential and/or federally protected health information. This information has been disclosed to you from records protected by [facility]. The law prohibits [...] the sender immediately.[facility] ([facility]) Encounter Details Date Type Department Care Team (Late st Contact Info) Description 09/15/2015 Historical Note [facility] [employer] System Devyn Vásquez MD [address] [place] [address] [phone] Social History Tobacco Use Types Packs/Day Years [...] [facility] at [facility] [address] [facility] [address] [place] [phone] Brenda Clay MD [address] [facility] [address] [place] [address] 04/15/2026 10:00 AM EDT Office Visit LEATHA Primary Care at [facility] + [facility] [address] [facility] [address] [place] [address] Sena Dominguez PA [address] [facility] [place] [address] documented as of this encounter Visit Diagnoses Not on filedocumented in this encounter Care Teams Mandarin Speaking Nanny Relationship Specialty Start Date End Date Meme Steel MD [address] [place] [address] 105 [place] [address] PCP - General Pediatrics 06/05/18 04/25/22 No Pcp, Pcp PCP - General 06/08/22 07/19/22 Guadalupe Mcbride MD PCP - General Family Medicine 07/20/22 11/01/23 Sena Dominguez PA [address] [place] [address] [place] [address] PCP - BRADY Physician Yarn Spooler 11/02/23 Levy Barry MD [address] [place] [address] [place] [address] PCP - General Family Medicine 12/20/23 documented as of this encounter
--- OUTSIDE RECORDS SUMMARY | 2025-08-08 14:40 | XMS_ITS | Encounter Summary ---
Author Organization [facility] work ([facility]) Address [address] [place] [address] Care Team Providers Care Job Press Operator Name Role Phone Meme Steel MD Primary Care Provider No Pcp, Pcp Primary Care Provider Unavailabl Guadalupe Bardales MD Primary Care Provider [phone] Sena Dominguez Unavailable [phone] Levy Barry MD Primary Care Provider Unavailab le Source Comments The information that you have received may contain highly confidential and/or federally protected health information. This information has been disclosed to you from records protected by [facility]. The law prohibits you from [...] sender immediately.[facility] ([facility]) Encounter Details Date Type Department Care Team (Late st Contact Info) Description 12/31/2015 Historical Note [facility] docplanner System Devyn Vásquez MD [address] [place] [address] [phone] Social History Tobacco Use Types Packs/Day Years [...] LEATHA CARRILLO - [facility] [address] [facility] [address] [place] [phone] Brenda Clay MD [address] [facility] [address] [place] [address] 04/15/2026 10:00 AM EDT Office Visit LEATHA Primary Care at [facility] + [facility] [address] [facility] [address] [place] [address] Sena Dominguez PA [address] [facility] [place] [address] documented as of this encounter Visit Diagnoses Not on filedocumented in this encounter Care Teams Job Press Operator Relationship Specialty Start Date End Date Meme Steel MD [address] [place] [address] 105 [place] [address] PCP - General Pediatrics 06/05/18 04/25/22 No Pcp, Pcp PCP - General 06/08/22 07/19/22 Guadalupe Mcbride MD PCP - General Family Medicine 07/20/22 11/01/23 Sena Dominguez PA [address] [place] [address] [place] [address] PCP - BRADY Physician Ssn/Ssbn Weapons Equipment Operator 11/02/23 Levy Barry MD [address] [place] [address] [place] [address] PCP - General Family Medicine 12/20/23 documented as of this encounter
--- OUTSIDE RECORDS SUMMARY | 2025-08-08 14:40 | XMS_ITS | Encounter Summary ---
Author Organization [facility] work ([facility]) Address [address] [place] [address] Care Team Providers Care Cutting And Boning Supervisor Name Role Phone Meme Steel MD Primary Care Provider [phone] No Pcp, Pcp Primary Care Provider Unavailabl Guadalupe Bardales MD Primary Care Provider Sena Dominguez Unavailable [phone] Levy Barry MD Primary Care Provider Unavailab le Source Comments The information that you have received may contain highly confidential and/or federally protected health information. This information has been disclosed to you from records protected by [facility]. The law prohibits you [...] contact the sender immediately.[facility] ([facility]) Encounter Details Date Type Department Care Team (Late st Contact Info) Description 04/09/2009 Historical Note [facility] [employer] System Devyn Vásquez MD [address] [place] [address] [phone] Social History Tobacco Use Types Packs/Day Years [...] LEATHA CARRILLO - [facility] [address] [facility] [address] [place] [phone] Brenda Clay MD [address] [facility] [address] [place] [address] 04/15/2026 10:00 AM EDT Office Visit LEATHA Primary [facility] at [facility] + [facility] [address] [facility] [address] [place] [address] Sena Dominguez PA [address] [facility] [place] [address] documented as of this encounter Visit Diagnoses Not on filedocumented in this encounter Care Teams Cutting And Boning Supervisor Relationship Specialty Start Date End Date Meme Steel MD [address] [place] [address] 105 [place] [address] PCP - General Pediatrics 06/05/18 04/25/22 No Pcp, Pcp PCP - General 06/08/22 07/19/22 Guadalupe Mcbride MD PCP - General Family Medicine 07/20/22 11/01/23 Sena Dominguez PA [address] [place] [address] [place] [address] PCP - BRADY Physician Chemical Equipment Sales Engineer 11/02/23 Levy Barry MD [address] [place] [address] [place] [address] PCP - General Family Medicine 12/20/23 documented as of this encounter
--- OUTSIDE RECORDS SUMMARY | 2025-08-08 14:40 | XMS_ITS | Encounter Summary ---
Author Organization [facility] work ([facility]) Address [address] [facility] [address] [place] [address] Care Team Providers Care Airplane Dispatch Clerk Name Role Phone Meme Steel MD Primary Care Provider [phone] Pcp, Pcp Primary Care Provider Unavailabl Guadalupe Bardales MD Primary Care Provider [phone] Sena Dominguez Unavailable [phone] Levy Barry MD Primary Care Provider Unavailab le Source Comments The information that you have received may contain highly confidential and/or federally protected health information. This information has been disclosed to you from records protected by [facility] [employer] [facility]. The [...] please contact the sender immediately.[facility] ([facility]) Encounter Details Date Type Department Care Team (Late st Contact Info) Description 05/28/2015 Historical Note [facility] Sponsia System Devyn Vásquez MD [address] [place] [address] [phone] Social History Tobacco Use Types Packs/Day Years [...] CARRILLO - [facility] [address] [facility] [address] [place] [phone] Brenda Clay MD [address] [facility] [address] [place] [address] 04/15/2026 10:00 AM EDT Office Visit [facility]HA [facility] [address] [facility] [address] [place] [address] Sena Dominguez PA [address] [facility] [place] [address] documented as of this encounter Visit Diagnoses Not on filedocumented in this encounter Care Teams Airplane Dispatch Clerk Relationship Specialty Start Date End Date Meme Steel MD [address] [place] [address] 105 [place] [address] PCP - General Pediatrics 06/05/18 04/25/22 No Pcp, Pcp PCP - General 06/08/22 07/19/22 Guadalupe Mcbride MD PCP - General Family Medicine 07/20/22 11/01/23 Sena Dominguez PA [address] [place] [address] [place] [address] PCP - BRADY Physician Briquetting Machine Operator 11/02/23 Levy Barry MD [address] [place] [address] [place] [address] PCP - General Family Medicine 12/20/23 documented as of this encounter
--- OUTSIDE RECORDS SUMMARY | 2025-08-08 14:40 | XMS_ITS | Encounter Summary ---
Author Organization [facility] work ([facility]) Address [address] [address] [place] [address] Care Team Providers Care Corporate Planner Name Role Phone Meme Steel MD Primary Care Provider [phone] Pcp, Pcp Primary Care Provider Unavailabl Guadalupe Bardales MD Primary Care Provider [phone] Sena Dominguez Unavailable [phone] Levy Barry MD Primary Care Provider Unavailab le Source Comments The information that you have received may contain highly confidential and/or federally protected health information. This information has been disclosed to you from records protected by [facility]. The law prohibits [...] error, please contact the sender immediately.[facility] ([facility]) Encounter Details Date Type Department Care Team (Late st Contact Info) Description 03/03/2005 Historical Note [facility] Owlient System Devyn Vásquez MD [address] [place] [address] [phone] Social History Tobacco Use Types Packs/Day Years [...] CARRILLO - [facility] [address] [facility] [address] [place] [phone] Brenda Clay MD [address] [facility] [address] [place] [address] 04/15/2026 10:00 AM EDT Office Visit LEATHA Primary [facility] at [facility] + [facility] [address] [facility] [address] [place] [address] Sena Dominguez PA [address] [facility] [place] [address] documented as of this encounter Visit Diagnoses Not on filedocumented in this encounter Care Teams Corporate Planner Relationship Specialty Start Date End Date Meme Steel MD [address] [place] [address] 105 [place] [address] PCP - General Pediatrics 06/05/18 04/25/22 No Pcp, Pcp PCP - General 06/08/22 07/19/22 Guadalupe Mcbride MD PCP - General Family Medicine 07/20/22 11/01/23 Sena Dominguez PA [address] [place] [address] [place] [address] PCP - BRADY Physician Merchandise Worker 11/02/23 Levy Barry MD [address] [place] [address] [place] [address] PCP - General Family Medicine 12/20/23 documented as of this encounter
--- OUTSIDE RECORDS SUMMARY | 2025-08-08 14:40 | XMS_ITS | Encounter Summary ---
Author Organization [facility] work ([facility]) Address [address] [place] [address] Care Team Providers Care Agent Producer Name Role Phone Meme Steel MD Primary Care Provider [phone] No Pcp, Pcp Primary Care Provider Unavailabl Guadalupe Bardales MD Primary Care Provider [phone] Sena Dominguez Unavailable [phone] Levy Barry MD Primary Care Provider Unavailab le Source Comments The information that you have received may contain highly confidential and/or federally protected health information. This information has been disclosed to you from records protected by [facility]. The law prohibits you from [...] please contact the sender immediately.[facility] ([facility]) Encounter Details Date Type Department Care Team (Late st Contact Info) Description 08/06/2009 Historical Note [facility] Sentrinsic System Devyn Vásquez MD [address] [place] [address] [phone] Social History Tobacco Use Types Packs/Day Years [...] LEATHA CARRILLO - [facility] [address] [facility] [address] [place] [phone] Brenda Clay MD [address] [facility] [address] [place] [address] 04/15/2026 10:00 AM EDT Office Visit [facility] + [facility] [address] [facility] [address] [place] [address] Sena Dominguez PA [address] [facility] [place] [address] documented as of this encounter Visit Diagnoses Not on filedocumented in this encounter Care Teams Agent Producer Relationship Specialty Start Date End Date Meme Steel MD [address] [place] [address] [place] [address] PCP - General Pediatrics 06/05/18 04/25/22 No Pcp, Pcp PCP - General 06/08/22 07/19/22 Guadalupe Mcbride MD PCP - General Family Medicine 07/20/22 11/01/23 Sena Dominguez PA [address] [place] [address] [place] [address] PCP - BRADY Physician Mechanical Reliability Engineer 11/02/23 Levy Barry MD [address] [place] [address] [place] [address] PCP - General Family Medicine 12/20/23 documented as of this encounter
--- OUTSIDE RECORDS SUMMARY | 2025-08-08 14:40 | XMS_ITS | Encounter Summary ---
Author Organization [facility] work ([facility]) Address [address] [place] [address] Care Team Providers Care Otr Refrigerated Cdl Truck Driver Name Role Phone Meme Steel MD Primary Care Provider [phone] Pcp, Pcp Primary Care Provider Unavailabl Guadalupe Bardales MD Primary Care Provider [phone] Sena Dominguez Unavailable [phone] Levy Barry MD Primary Care Provider Unavailab le Source Comments The information that you have received may contain highly confidential and/or federally protected health information. This information has been disclosed to you from records protected by [facility]. The law [...] please contact the sender immediately.[facility] ([facility]) Encounter Details Date Type Department Care Team (Late st Contact Info) Description 2004 Historical Note [facility] Ti-Bi [employer] System Devyn Vásquez MD [address] [place] [address] [phone] Social History Tobacco Use Types Packs/Day Years [...] LEATHA CARRILLO - [facility] [address] [facility] [address] [place] [phone] Brenda Clay MD [address] [facility] [address] [place] [address] 04/15/2026 10:00 AM EDT Office Visit [facility]HA [facility] at [facility] + [facility] [address] [facility] [address] [place] [address] Sena Dominguez PA [address] [facility] [place] [address] documented as of this encounter Visit Diagnoses Not on filedocumented in this encounter Care Teams Otr Refrigerated Cdl Truck Driver Relationship Specialty Start Date End Date Meme Steel MD [address] [place] [address] 105 [place] [address] PCP - General Pediatrics 06/05/18 04/25/22 No Pcp, Pcp PCP - General 06/08/22 07/19/22 Guadalupe Mcbride MD PCP - General Family Medicine 07/20/22 11/01/23 Sena Dominguez PA [address] [place] [address] [place] [address] PCP - BRADY Physician Teacher Preschool 11/02/23 Levy Barry MD [address] [place] [address] [place] [address] PCP - General Family Medicine 12/20/23 documented as of this encounter
--- OUTSIDE RECORDS SUMMARY | 2025-08-08 14:40 | XMS_ITS | Encounter Summary ---
Author Organization [facility] work ([facility]) Address [address] [place] [address] Care Team Providers Care Coat Maker Name Role Phone Meme Steel MD Primary Care Provider [phone] Pcp, Pcp Primary Care Provider Unavailabl Guadalupe Bardales MD Primary Care Provider [phone] Sena Dominguez Unavailable [phone] Levy Barry MD Primary Care Provider Unavailab le Source Comments The information that you have received may contain highly confidential and/or federally protected health information. This information has been disclosed to you from records protected by [facility]. The law prohibits [...] contact the sender immediately.[facility] ([facility]) Encounter Details Date Type Department Care Team (Late st Contact Info) Description 04/09/2009 Historical Note [facility] HearMeOut System Devyn Vásquez MD [address] [place] [address] [phone] Social History Tobacco Use Types Packs/Day Years [...] AM EST Office Visit ELATHA CARRILLO - [facility] [address] [facility] [address] [place] [phone] Brenda Clay MD [address] [facility] [address] [place] [phone] 04/15/2026 10:00 AM EDT Office Visit LEATHA [facility] at [facility] + [facility] [address] [facility] [address] [place] [address] Sena Dominguez PA [address] [facility] [place] [address] documented as of this encounter Visit Diagnoses Not on filedocumented in this encounter Care Teams Coat Maker Relationship Specialty Start Date End Date Meme Steel MD [address] [place] [address] 105 [place] [address] PCP - General Pediatrics 06/05/18 04/25/22 No Pcp, Pcp PCP - General 06/08/22 07/19/22 Guadalupe Mcbride MD PCP - General Family Medicine 07/20/22 11/01/23 Sena Dominguez PA [address] [place] [address] [place] [address] PCP - BRADY Physician Head Of Data 11/02/23 Levy Barry MD [address] [place] [address] [place] [address] PCP - General Family Medicine 12/20/23 documented as of this encounter
--- OUTSIDE RECORDS SUMMARY | 2025-08-08 14:40 | XMS_ITS | Encounter Summary ---
Author Organization [facility] work ([facility]) Address [address] [place] [address] Care Team Providers Care Cardiology Clinical Nurse Specialist Name Role Phone Meme Steel MD Primary Care Provider No Pcp, Pcp Primary Care Provider Unavailabl Guadalupe Bardales MD Primary Care Provider [phone] Sena Dominguez Unavailable Levy Barry MD Primary Care Provider Unavailab le Source Comments The information that you have received may contain highly confidential and/or federally protected health information. This information has been disclosed to you from records protected by [facility]. The law prohibits you from [...] immediately.[facility] ([facility]) Encounter Details Date Type Department Care Team (Late st Contact Info) Description 10/06/2015 Historical Note [facility] [employer] System Devyn Vásquez MD [address] [place] [address] [phone] Social History Tobacco Use Types Packs/Day Years [...] CARRILLO - [facility] [address] [facility] [address] [place] [phone] Brenda Clay MD [address] [facility] [address] [place] [phone] 04/15/2026 10:00 AM EDT Office Visit LE[facility]HA [facility] at [facility] + [facility] [address] [facility] [address] [place] [address] Sena Dominguez PA [address] [facility] [place] [address] documented as of this encounter Visit Diagnoses Not on filedocumented in this encounter Care Teams Cardiology Clinical Nurse Specialist Relationship Specialty Start Date End Date Meme Steel MD [address] [place] [address] 105 [place] [address] PCP - General Pediatrics 06/05/18 04/25/22 No Pcp, Pcp PCP - General 06/08/22 07/19/22 Guadalupe Mcbride MD PCP - General Family Medicine 07/20/22 11/01/23 Sena Dominguez PA [address] [place] [address] [place] [address] PCP - BRADY Physician Wine Bottle Inspector 11/02/23 Levy Barry MD [address] [place] [address] [place] [address] PCP - General Family Medicine 12/20/23 documented as of this encounter
--- OUTSIDE RECORDS SUMMARY | 2025-08-08 14:40 | XMS_ITS | Encounter Summary ---
Author Organization [facility] work ([facility]) Address [address] [place] [address] Care Team Providers Care Parking Officer Name Role Phone Meme Steel MD Primary Care Provider [phone] No Pcp, Pcp Primary Care Provider Unavailabl Guadalupe aBrdales MD Primary Care Provider [phone] Sena Dominguez Unavailable [phone] Levy Barry MD Primary Care Provider Unavailab le Source Comments The information that you have received may contain highly confidential and/or federally protected health information. This information has been disclosed to you from records protected by [facility]. The law prohibits you from [...] contact the sender immediately.[facility] ([facility]) Encounter Details Date Type Department Care Team (Late st Contact Info) Description 09/15/2015 Historical Note [facility] Kirondo System Devyn Vásquez MD [address] [place] [address] [phone] Social History Tobacco Use Types Packs/Day Years [...] Visit LEATHA CARRILLO - [facility] [address] [facility] [address] [place] [phone] Brenda Clay MD [address] [facility] [address] [place] [address] 04/15/2026 10:00 AM EDT Office Visit LEATHA [facility] at [facility] + [facility] [address] [facility] [address] [place] [address] Sena Dominguez PA [address] [facility] [place] [address] documented as of this encounter Visit Diagnoses Not on filedocumented in this encounter Care Teams Parking Officer Relationship Specialty Start Date End Date Meme Steel MD [address] [place] [address] 105 [place] [address] PCP - General Pediatrics 06/05/18 04/25/22 No Pcp, Pcp PCP - General 06/08/22 07/19/22 Guadalupe Mcbride MD PCP - General Family Medicine 07/20/22 11/01/23 Sena Dominguez PA [address] [place] [address] [place] [address] PCP - BRADY Physician Customer Service Agent 11/02/23 Levy Barry MD [address] [place] [address] [place] [address] PCP - General Family Medicine 12/20/23 documented as of this encounter
--- OUTSIDE RECORDS SUMMARY | 2025-08-08 14:40 | XMS_ITS | Encounter Summary ---
Author Organization [facility] work ([facility]) Address [address] [place] [address] Care Team Providers Care Hearing Therapist Name Role Phone Meme Steel MD Primary Care Provider [phone] Pcp, Pcp Primary Care Provider Unavailabl Guadalupe Bardales MD Primary Care Provider [phone] Sena Dominguez Unavailable [phone] Levy Barry MD Primary Care Provider Unavailab le Source Comments The information that you have received may contain highly confidential and/or federally protected health information. This information has been disclosed to you from records protected by [facility]. The [...] error, please contact the sender immediately.[facility] ([facility]) Encounter Details Date Type Department Care Team (Late st Contact Info) Description 03/10/2009 Historical Note [facility] SnapNames System Devyn Vásquez MD [address] [place] [address] [phone] Social History Tobacco Use Types Packs/Day Years [...] LEATHA CARRILLO - [facility] [address] [facility] [address] [place] [phone] Brenda Clay MD [address] [facility] [address] [place] [phone] 04/15/2026 10:00 AM EDT Office Visit LEATHA [facility] at [facility] + [facility] [address] [facility] [address] [place] [address] Sena Dominguez PA [address] [facility] [place] [address] documented as of this encounter Visit Diagnoses Not on filedocumented in this encounter Care Teams Hearing Therapist Relationship Specialty Start Date End Date Meme Steel MD [address] [place] [address] 105 [place] [address] PCP - General Pediatrics 06/05/18 04/25/22 No Pcp, Pcp PCP - General 06/08/22 07/19/22 Guadalupe Mcbride MD PCP - General Family Medicine 07/20/22 11/01/23 Sena Dominguez PA [address] [place] [address] [place] [address] PCP - BRADY Physician International Relations Teacher 11/02/23 Levy Barry MD [address] [place] [address] [place] [address] PCP - General Family Medicine 12/20/23 documented as of this encounter
--- OUTSIDE RECORDS SUMMARY | 2025-08-08 14:40 | XMS_ITS | Encounter Summary ---
Author Organization [facility] work ([facility]) Address [address] [place] [address] Care Team Providers Care Loan Service Officer Name Role Phone Meme Steel MD Primary Care Provider [phone] No Pcp, Pcp Primary Care Provider Unavailabl Guadalupe Bardales MD Primary Care Provider [phone] Sena Dominguez Unavailable [phone] Levy Barry MD Primary Care Provider Unavailab le Source Comments The information that you have received may contain highly confidential and/or federally protected health information. This information has been disclosed to you from records protected by [facility]. The law prohibits you from making [...] contact the sender immediately.[facility] ([facility]) Encounter Details Date Type Department Care Team (Late st Contact Info) Description 10/05/2015 Historical Note [facility] OpenWhere System Devyn Vásquez MD [address] [place] [address] [phone] Social History Tobacco Use Types Packs/Day Years [...] CARRILLO - [facility] at [facility] [address] [facility] [address] [place] [phone] Brenda Clay MD [address] [facility] [address] [place] [address] 04/15/2026 10:00 AM EDT Office Visit LEATHA [facility] at [facility] [address] [facility] [address] [place] [address] Sena Dominguez PA [address] [facility] [place] [address] documented as of this encounter Visit Diagnoses Not on filedocumented in this encounter Care Teams Loan Service Officer Relationship Specialty Start Date End Date Meme Steel MD [address] [place] [address] 105 [place] [address] PCP - General Pediatrics 06/05/18 04/25/22 No Pcp, Pcp PCP - General 06/08/22 07/19/22 Guadalupe Mcbride MD PCP - General Family Medicine 07/20/22 11/01/23 Sena Dominguez PA [address] [place] [address] [place] [address] PCP - BRADY Physician Software Support Engineer 11/02/23 Levy Barry MD [address] [place] [address] [place] [address] PCP - General Family Medicine 12/20/23 documented as of this encounter
--- OUTSIDE RECORDS SUMMARY | 2025-08-08 14:40 | XMS_ITS | Encounter Summary ---
Author Organization [facility] work ([facility]) Address [address] [place] [address] Care Team Providers Care Wax Pattern Repairer Name Role Phone Meme Steel MD Primary Care Provider [phone] No Pcp, Pcp Primary Care Provider Unavailabl Guadalupe Bardales MD Primary Care Provider [phone] Sena Dominguez Unavailable [phone] Levy Barry MD Primary Care Provider Unavailab le Source Comments The information that you have received may contain highly confidential and/or federally protected health information. This information has been disclosed to you from records protected by [facility]. The law prohibits you from [...] the sender immediately.[facility] ([facility]) Encounter Details Date Type Department Care Team (Late st Contact Info) Description 10/05/2015 Historical Note [facility] Xtium System Devyn Vásquez MD [address] [place] [address] [phone] Social History Tobacco Use Types Packs/Day Years [...] Visit LEATHA CARRILLO - [facility] [address] [facility] [address] [place] [phone] Brenda Clay MD [address] [facility] [address] [place] [phone] 04/15/2026 10:00 AM EDT Office Visit LEATHA [facility] at [facility] [address] [facility] [address] [place] [address] Sena Dominguez PA [address] [facility] [place] [address] documented as of this encounter Visit Diagnoses Not on filedocumented in this encounter Care Teams Wax Pattern Repairer Relationship Specialty Start Date End Date Meme Steel MD [address] [place] [address] 105 [place] [address] PCP - General Pediatrics 06/05/18 04/25/22 No Pcp, Pcp PCP - General 06/08/22 07/19/22 Guadalupe Mcbride MD PCP - General Family Medicine 07/20/22 11/01/23 Sena Dominguez PA [address] [place] [address] [place] [address] PCP - BRADY Physician Body Line Finisher 11/02/23 Levy Barry MD [address] [place] [address] [place] [address] PCP - General Family Medicine 12/20/23 documented as of this encounter
--- OUTSIDE RECORDS SUMMARY | 2025-08-08 14:40 | XMS_ITS | Encounter Summary ---
Author Organization [facility] work ([facility]) Address [address] [place] [address] Care Team Providers Care Six Horse Hitch Driver Name Role Phone Meme Steel MD Primary Care Provider [phone] No Pcp, Pcp Primary Care Provider Unavailabl Guadalupe Bardales MD Primary Care Provider [phone] Sena Dominguez Unavailable [phone] Levy Barry MD Primary Care Provider Unavailab le Source Comments The information that you have received may contain highly confidential and/or federally protected health information. This information has been disclosed to you from records protected by [facility]. The law prohibits you from making [...] error, please contact the sender immediately.[facility] ([facility]) Encounter Details Date Type Department Care Team (Late st Contact Info) Description 08/17/2008 Historical Note [facility] Traction System Devyn Vásquez MD [address] [place] [address] [phone] Social History Tobacco Use Types Packs/Day Years [...] LEATHA CARRILLO - [facility] [address] [facility] [address] [place] [phone] Brenda Clay MD [address] [facility] [address] [place] [address] 04/15/2026 10:00 AM EDT Office Visit LE[facility]HA [facility] at [facility] + [facility] [address] [facility] [address] [place] [address] Sena Dominguez PA [address] [facility] [place] [address] documented as of this encounter Visit Diagnoses Not on filedocumented in this encounter Care Teams Six Horse Hitch Driver Relationship Specialty Start Date End Date Meme Steel MD [address] [place] [address] 105 [place] [address] PCP - General Pediatrics 06/05/18 04/25/22 No Pcp, Pcp PCP - General 06/08/22 07/19/22 Guadalupe Mcbride MD PCP - General Family Medicine 07/20/22 11/01/23 Sena Dominguez PA [address] [place] [address] [place] [address] PCP - BRADY Physician Blow Molder 11/02/23 Levy Barry MD [address] [place] [address] [place] [address] PCP - General Family Medicine 12/20/23 documented as of this encounter
--- OUTSIDE RECORDS SUMMARY | 2025-08-08 14:40 | XMS_ITS | Encounter Summary ---
Author Organization [facility] work ([facility]) Address [address] [place] [address] Care Team Providers Care Rocket Motor Tester Name Role Phone Meme Steel MD Primary Care Provider [phone] No Pcp, Pcp Primary Care Provider Unavailabl Guadalupe Bardales MD Primary Care Provider [phone] Sena Dominguez Unavailable [phone] Levy Barry MD Primary Care Provider Unavailab le Source Comments The information that you have received may contain highly confidential and/or federally protected health information. This information has been disclosed to you from records protected by [facility]. The law prohibits you [...] sender immediately.[facility] ([facility]) Encounter Details Date Type Department Care Team (Late st Contact Info) Description 2004 Historical Note [facility] Joyent System Devyn Vásquez MD [address] [place] [address] [phone] Social History Tobacco Use Types Packs/Day Years [...] LEATHA CARRILLO - [facility] [address] [facility] [address] [place] [phone] Brenda Clay MD [address] [facility] [address] [place] [phone] 04/15/2026 10:00 AM EDT Office Visit LE[facility]HA [facility] at [facility] + [facility] [address] [facility] [address] [place] [address] Sena Dominguez PA [address] [facility] [place] [address] documented as of this encounter Visit Diagnoses Not on filedocumented in this encounter Care Teams Rocket Motor Tester Relationship Specialty Start Date End Date Meme Steel MD [address] [place] [address] 105 [place] [address] PCP - General Pediatrics 06/05/18 04/25/22 No Pcp, Pcp PCP - General 06/08/22 07/19/22 Guadalupe Mcbride MD PCP - General Family Medicine 07/20/22 11/01/23 Sena Dominguez PA [address] [place] [address] [place] [address] PCP - BRADY Physician Recreation Manager 11/02/23 Levy Barry MD [address] [place] [address] [place] [address] PCP - General Family Medicine 12/20/23 documented as of this encounter
--- OUTSIDE RECORDS SUMMARY | 2025-08-08 14:40 | XMS_ITS | Encounter Summary ---
Author Organization [facility] work ([facility]) Address [address] [place] [address] Care Team Providers Care Ballroom Dancer Name Role Phone Meme Steel MD Primary Care Provider No Pcp, Pcp Primary Care Provider Unavailabl Guadalupe Bardales MD Primary Care Provider [phone] Sena Dominguez Unavailable [phone] Levy Barry MD Primary Care Provider Unavailab le Source Comments The information that you have received may contain highly confidential and/or federally protected health information. This information has been disclosed to you from records protected by [facility]. The law prohibits you [...] please contact the sender immediately.[facility] ([facility]) Encounter Details Date Type Department Care Team (Late st Contact Info) Description 03/10/2009 Historical Note [facility] Devyn Vásquez MD [address] [place] [address] [phone] Social History Tobacco Use Types Packs/Day Years [...] CARRILLO - [facility] at [facility] [address] [place] [phone] Brenda Clay MD [address] [facility] [address] [place] [phone] 04/15/2026 10:00 AM EDT Office Visit [facility] + [facility] [address] [place] [address] Sena Dominguez PA [address] [place] [address] documented as of this encounter Visit Diagnoses Not on filedocumented in this encounter Care Teams Ballroom Dancer Relationship Specialty Start Date End Date Meme Steel MD [address] [place] [address] [place] [address] PCP - General Pediatrics 06/05/18 04/25/22 No Pcp, Pcp PCP - General 06/08/22 07/19/22 Guadalupe Mcbride MD PCP - General Family Medicine 07/20/22 11/01/23 Sena Dominguez PA [address] [place] [address] [place] [address] PCP - BRADY Physician Malt House Loader 11/02/23 Levy Barry MD [address] [place] [address] [place] [address] PCP - General Family Medicine 12/20/23 documented as of this encounter
--- OUTSIDE RECORDS SUMMARY | 2025-08-08 14:40 | XMS_ITS | Encounter Summary ---
Author Organization [facility] work ([facility]) Address [address] [place] [address] Care Team Providers Care Market Editor Name Role Phone Meme Steel MD Primary Care Provider [phone] Pcp, Pcp Primary Care Provider Unavailabl Guadalupe Bardales MD Primary Care Provider [phone] Sena Dominguez Unavailable [phone] Levy Barry MD Primary Care Provider Unavailab le Source Comments The information that you have received may contain highly confidential and/or federally protected health information. This information has been disclosed to you from records protected by [facility]. The law prohibits [...] please contact the sender immediately.[facility] ([facility]) Encounter Details Date Type Department Care Team (Late st Contact Info) Description 02/07/2005 Historical Note [facility] [place] System Devyn Vásquez MD [address] [place] [address] [phone] Social History Tobacco Use Types Packs/Day Years [...] CARRILLO - [facility] [address] [place] [phone] Brenda Clay MD [address] [facility] [address] [place] [address] 04/15/2026 10:00 AM EDT Office Visit [facility] at [facility] + [facility] [address] [place] [address] Sena Dominguez PA [address] [facility] [place] [address] documented as of this encounter Visit Diagnoses Not on filedocumented in this encounter Care Teams Market Editor Relationship Specialty Start Date End Date Meme Steel MD [address] [place] [address] 105 [place] [address] PCP - General Pediatrics 06/05/18 04/25/22 No Pcp, Pcp PCP - General 06/08/22 07/19/22 Guadalupe Mcbride MD PCP - General Family Medicine 07/20/22 11/01/23 Sena Dominguez PA [address] [place] [address] [place] [address] PCP - BRADY Physician Supervisor Contact And Service Clerks 11/02/23 Levy Barry MD [address] [place] [address] [place] [address] PCP - General Family Medicine 12/20/23 documented as of this encounter
--- OUTSIDE RECORDS SUMMARY | 2025-08-08 14:40 | XMS_ITS | Encounter Summary ---
Author Organization [facility] work ([facility]) Address [address] [place] [address] Care Team Providers Care Cafe Associate Name Role Phone Meme Steel MD Primary Care Provider [phone] Pcp, Pcp Primary Care Provider Unavailabl Guadalupe Bardales MD Primary Care Provider [phone] Sena Dominguez Unavailable [phone] Levy Barry MD Primary Care Provider Unavailab le Source Comments The information that you have received may contain highly confidential and/or federally protected health information. This information has been disclosed to you from records protected by [facility]. The law prohibits [...] sender immediately.[facility] ([facility]) Encounter Details Date Type Department Care Team (Late st Contact Info) Description 04/12/2005 Historical Note [facility] [employer] System Devyn Vásquez MD [address] [place] [address] [phone] Social History Tobacco Use Types Packs/Day Years [...] LEATHA CARRILLO - [facility] [address] [place] [phone] Brenda Clay MD [address] [facility] [address] [place] [address] 04/15/2026 10:00 AM EDT Office Visit [facility]HA Primary [facility] at [facility] + [facility] [address] [facility] [facility] [address] [place] [address] Sena Dominguez PA [address] [facility] [place] [address] documented as of this encounter Visit Diagnoses Not on filedocumented in this encounter Care Teams Cafe Associate Relationship Specialty Start Date End Date Meme Steel MD [address] [place] [address] 105 [place] [address] PCP - General Pediatrics 06/05/18 04/25/22 No Pcp, Pcp PCP - General 06/08/22 07/19/22 Guadalupe Mcbride MD PCP - General Family Medicine 07/20/22 11/01/23 Sena Dominguez PA [address] [place] [address] [place] [address] PCP - BRADY Physician Watchguard 11/02/23 Levy Barry MD [address] [place] [address] [place] [address] PCP - General Family Medicine 12/20/23 documented as of this encounter
--- OUTSIDE RECORDS SUMMARY | 2025-08-08 14:40 | XMS_ITS | Encounter Summary ---
Author Organization [facility] work ([facility]) Address [address] [place] [address] Care Team Providers Care Emt I/99 Name Role Phone Meme Steel MD Primary Care Provider [phone] Pcp, Pcp Primary Care Provider Unavailabl Guadalupe Bardales MD Primary Care Provider [phone] Sena Dominguez Unavailable [phone] Levy Barry MD Primary Care Provider Unavailab le Source Comments The information that you have received may contain highly confidential and/or federally protected health information. This information has been disclosed to you from records protected by [facility]. The law prohibits you from [...] error, please contact the sender immediately.[facility] ([facility]) Encounter Details Date Type Department Care Team (Late st Contact Info) Description 01/07/2016 Historical Note [facility] [employer] System Devyn Vásquez MD [address] [place] [address] [phone] Social History Tobacco Use Types Packs/Day Years [...] Office Visit LEATHA CARRILLO - [facility] [address] [facility] [address] [place] [phone] Brenda Clay MD [address] [facility] [address] [place] [phone] 04/15/2026 10:00 AM EDT Office Visit [facility]HA [facility] at [facility] + [facility] [address] [facility] [address] [place] [address] Sena Dominguez PA [address] [facility] [place] [address] documented as of this encounter Visit Diagnoses Not on filedocumented in this encounter Care Teams Emt I/99 Relationship Specialty Start Date End Date Meme Steel MD [address] [place] [address] 105 [place] [address] PCP - General Pediatrics 06/05/18 04/25/22 No Pcp, Pcp PCP - General 06/08/22 07/19/22 Guadalupe Mcbride MD PCP - General Family Medicine 07/20/22 11/01/23 Sena Dominguez PA [address] [place] [address] [place] [address] PCP - BRADY Physician J2Ee Software Engineer 11/02/23 Levy Barry MD [address] [place] [address] [place] [address] PCP - General Family Medicine 12/20/23 documented as of this encounter
--- OUTSIDE RECORDS SUMMARY | 2025-08-08 14:40 | XMS_ITS | Encounter Summary ---
Author Organization [facility] work ([facility]) Address [address] [place] [address] Care Team Providers Care Provisioning Specialist Name Role Phone Meme Steel MD Primary Care Provider [phone] Pcp, Pcp Primary Care Provider Unavailabl Guadalupe Bardales MD Primary Care Provider [phone] Sena Dominguez Unavailable [phone] Levy Barry MD Primary Care Provider Unavailab le Source Comments The information that you have received may contain highly confidential and/or federally protected health information. This information has been disclosed to you from records protected by [facility]. The law prohibits you from [...] error, please contact the sender immediately.[facility] ([facility]) Encounter Details Date Type Department Care Team (Late st Contact Info) Description 01/07/2016 Historical Note [facility] [employer] System Devyn Vásquez MD [address] [place] [address] [phone] Social History Tobacco Use Types Packs/Day Years [...] LEATHA CARRILLO - [facility] [address] [place] [phone] Brenda Clay MD [address] [facility] [address] [place] [phone] 04/15/2026 10:00 AM EDT Office Visit [facility] at [facility] + [facility] [address] [facility] [address] [place] [address] Sena Dominguez PA [address] [facility] [place] [address] documented as of this encounter Visit Diagnoses Not on filedocumented in this encounter Care Teams Provisioning Specialist Relationship Specialty Start Date End Date Meme Steel MD [address] [place] [address] 105 [place] [address] PCP - General Pediatrics 06/05/18 04/25/22 No Pcp, Pcp PCP - General 06/08/22 07/19/22 Guadalupe Mcbride MD PCP - General Family Medicine 07/20/22 11/01/23 Sena Dominguez PA [address] [place] [address] [place] [address] PCP - BRADY Physician Safety Equipment Testing Specialist 11/02/23 Levy Barry MD [address] [place] [address] [place] [address] PCP - General Family Medicine 12/20/23 documented as of this encounter
--- OUTSIDE RECORDS SUMMARY | 2025-08-08 14:40 | XMS_ITS | Encounter Summary ---
Author Organization [facility] work ([facility]) Address [address] [place] [address] Care Team Providers Care Foot Drill Operator Name Role Phone Meme Steel MD Primary Care Provider [phone] No Pcp, Pcp Primary Care Provider Unavailabl Guadalupe Bardales MD Primary Care Provider [phone] Sena Dominguez Unavailable [phone] Levy Barry MD Primary Care Provider Unavailab le Source Comments The information that you have received may contain highly confidential and/or federally protected health information. This information has been disclosed to you from records protected by [facility]. The law prohibits you [...] [facility] [address] [facility] ([facility]) Encounter Details Date Type Department Care Team (Late st Contact Info) Description 04/10/2009 Historical Note [facility] Devyn Vásquez MD [address] [place] [address] [phone] Social History Tobacco Use Types Packs/Day Years [...] Visit LEATHA CARRILLO - [facility] [address] [facility] [address] [place] [phone] Brenda Clay MD [address] [facility] [address] [place] [phone] 04/15/2026 10:00 AM EDT Office Visit [facility] at [facility] + [facility] [address] [place] [address] Sena Dominguez PA [address] [facility] [place] [address] documented as of this encounter Visit Diagnoses Not on filedocumented in this encounter Care Teams Foot Drill Operator Relationship Specialty Start Date End Date Meme Steel MD [address] [place] [address] 105 [place] [address] PCP - General Pediatrics 06/05/18 04/25/22 No Pcp, Pcp PCP - General 06/08/22 07/19/22 Guadalupe Mcbride MD PCP - General Family Medicine 07/20/22 11/01/23 Sena Dominguez PA [address] [place] [address] [place] [address] PCP - BRADY Physician Telephone Station Installer 11/02/23 Levy Barry MD [address] [place] [address] [place] [address] PCP - General Family Medicine 12/20/23 documented as of this encounter
--- OUTSIDE RECORDS SUMMARY | 2025-08-08 14:40 | XMS_ITS | Encounter Summary ---
Author Organization [facility] work ([facility]) Address [address] [place] [address] Care Team Providers Care Hemodialysis Rn Name Role Phone Meme Steel MD Primary Care Provider [phone] No Pcp, Pcp Primary Care Provider Unavailabl Guadalupe Bardales MD Primary Care Provider [phone] Sena Dominguez Unavailable [phone] Levy Barry MD Primary Care Provider Unavailab le Source Comments The information that you have received may contain highly confidential and/or federally protected health information. This information has been disclosed to you from records protected by [facility]. The law prohibits you [...] contact the sender immediately.[facility] ([facility]) Encounter Details Date Type Department Care Team (Late st Contact Info) Description 01/07/2016 Historical Note [facility] [employer] System Devyn Vásquez MD [address] [place] [address] [phone] Social History Tobacco Use Types Packs/Day Years [...] - [facility] [address] [facility] [address] [place] [phone] Brenda Clay MD [address] [facility] [address] [place] [address] 04/15/2026 10:00 AM EDT Office Visit [facility]HA [facility] at [facility] + [facility] [address] [facility] [address] [place] [address] Sena Dominguez PA [address] [facility] [place] [address] documented as of this encounter Visit Diagnoses Not on filedocumented in this encounter Care Teams Hemodialysis Rn Relationship Specialty Start Date End Date Meme Steel MD [address] [place] [address] 105 [place] [address] PCP - General Pediatrics 06/05/18 04/25/22 No Pcp, Pcp PCP - General 06/08/22 07/19/22 Guadalupe Mcbride MD PCP - General Family Medicine 07/20/22 11/01/23 Sena Dominguez PA [address] [place] [address] [place] [address] PCP - BRADY Physician Student Driving Instructor 11/02/23 Levy Barry MD [address] [place] [address] [place] [address] PCP - General Family Medicine 12/20/23 documented as of this encounter
--- OUTSIDE RECORDS SUMMARY | 2025-08-08 14:40 | XMS_ITS | Encounter Summary ---
Author Organization [facility] [address] work ([facility]) Address [address] [place] [address] Care Team Providers Care Self Propelled Mining Machine Operator Name Role Phone Meme Steel MD Primary Care Provider [phone] No Pcp, Pcp Primary Care Provider Unavailabl Guadalupe Bardales MD Primary Care Provider [phone] Sena Dominguez Unavailable [phone] Levy Barry MD Primary Care Provider Unavailab le Source Comments The information that you have received may contain highly confidential and/or federally protected health information. This information has been disclosed to you from records protected by [facility]. The law prohibits you from [...] error, please contact the sender immediately.[facility] ([facility]) Encounter Details Date Type Department Care Team (Late st Contact Info) Description 01/28/2005 Historical Note [facility] [employer] System Devyn Vásquez MD [address] [place] [address] [phone] Social History Tobacco Use Types Packs/Day Years [...] LEATHA CARRILLO - [facility] [address] [facility] [address] [place] [phone] Brenda Clay MD [address] [facility] [address] [place] [address] 04/15/2026 10:00 AM EDT Office Visit LEATHA Primary [facility] at [facility] + [facility] [address] [facility] [address] [place] [address] Sena Dominguez PA [address] [facility] [place] [address] documented as of this encounter Visit Diagnoses Not on filedocumented in this encounter Care Teams Self Propelled Mining Machine Operator Relationship Specialty Start Date End Date Meme Steel MD [address] [place] [address] 105 [place] [address] PCP - General Pediatrics 06/05/18 04/25/22 No Pcp, Pcp PCP - General 06/08/22 07/19/22 Guadalupe Mcbride MD PCP - General Family Medicine 07/20/22 11/01/23 Sena Dominguez PA [address] [place] [address] [place] [address] PCP - BRADY Physician Private Eye 11/02/23 Levy Barry MD [address] [place] [address] [place] [address] PCP - General Family Medicine 12/20/23 documented as of this encounter
--- OUTSIDE RECORDS SUMMARY | 2025-08-08 14:40 | XMS_ITS | Encounter Summary ---
Author Organization [facility] work ([facility] Address [address] [place] [address] Care Team Providers Care Manager Photography Name Role Phone Meme Steel MD Primary Care Provider [phone] No Pcp, Pcp Primary Care Provider Unavailabl Guadalupe Bardales MD Primary Care Provider [phone] Sena Dominguez Unavailable [phone] Levy Barry MD Primary Care Provider Unavailab le Source Comments The information that you have received may contain highly confidential and/or federally protected health information. This information has been disclosed to you from records protected by [facility]. The law prohibits you from [...] contact the sender immediately.[facility] ([facility] Encounter Details Date Type Department Care Team (Late st Contact Info) Description 08/12/2008 Historical Note [facility] [employer] System Devyn Vásquez MD [address] [place] [address] [phone] Social History Tobacco Use Types Packs/Day Years [...] CARRILLO - [facility] [address] [facility] [address] [place] [phone] Brenda Clay MD [address] [facility] [address] [place] [address] 04/15/2026 10:00 AM EDT Office Visit LEATHA [facility] at [facility] + [facility] [address] [facility] [address] [place] [address] Sena Dominguez PA [address] [facility] [place] [address] documented as of this encounter Visit Diagnoses Not on filedocumented in this encounter Care Teams Manager Photography Relationship Specialty Start Date End Date Meme Steel MD [address] [place] [address] 105 [place] [address] PCP - General Pediatrics 06/05/18 04/25/22 No Pcp, Pcp PCP - General 06/08/22 07/19/22 Guadalupe Mcbride MD PCP - General Family Medicine 07/20/22 11/01/23 Sena Dominguez PA [address] [place] [address] [place] [address] PCP - BRADY Physician Assembler Movement 11/02/23 Levy Barry MD [address] [place] [address] [place] [address] PCP - General Family Medicine 12/20/23 documented as of this encounter
--- OUTSIDE RECORDS SUMMARY | 2025-08-08 14:40 | XMS_ITS | Encounter Summary ---
Author Organization [facility] work ([facility]) Address [address] [place] [address] Care Team Providers Care Foot Press Operator Name Role Phone Meme Steel MD Primary Care Provider [phone] No Pcp, Pcp Primary Care Provider Unavailabl Guadalupe Bardales MD Primary Care Provider [phone] Sena Dominguez Unavailable [phone] Levy Barry MD Primary Care Provider Unavailab le Source Comments The information that you have received may contain highly confidential and/or federally protected health information. This information has been disclosed to you from records protected by [facility]. The law prohibits you [...] sender immediately.[facility] ([facility]) Encounter Details Date Type Department Care Team (Late st Contact Info) Description 10/01/2008 Historical Note [facility] [employer] System Devyn Vásquez MD [address] [place] [address] [phone] Social History Tobacco Use Types Packs/Day Years [...] CARRILLO - [facility] [address] [facility] [address] [place] [phone] Brenda Clay MD [address] [facility] [address] [place] [address] 04/15/2026 10:00 AM EDT Office Visit LEATHA [facility] at [facility] + [facility] [address] [facility] [address] [place] [address] Sena Dominguez PA [address] [facility] [place] [address] documented as of this encounter Visit Diagnoses Not on filedocumented in this encounter Care Teams Foot Press Operator Relationship Specialty Start Date End Date Meme Steel MD [address] [place] [address] 105 [place] [address] PCP - General Pediatrics 06/05/18 04/25/22 No Pcp, Pcp PCP - General 06/08/22 07/19/22 Guadalupe Mcbride MD PCP - General Family Medicine 07/20/22 11/01/23 Sena Dominguez PA [address] [place] [address] [place] [address] PCP - BRADY Physician Setter Out 11/02/23 Levy Barry MD [address] [place] [address] [place] [address] PCP - General Family Medicine 12/20/23 documented as of this encounter
--- OUTSIDE RECORDS SUMMARY | 2025-08-08 14:40 | XMS_ITS | Encounter Summary ---
Author Organization [facility] work ([facility]) Address [address] [place] [address] Care Team Providers Care Log Manager Name Role Phone Meme Steel MD Primary Care Provider [phone] Pcp, Pcp Primary Care Provider Unavailabl Guadalupe Bardales MD Primary Care Provider [phone] Sena Dominguez Unavailable [phone] Levy Barry MD Primary Care Provider Unavailab le Source Comments The information that you have received may contain highly confidential and/or federally protected health information. This information has been disclosed to you from records protected by [facility]. The law prohibits you from [...] Contact Info) Description 03/02/2005 Historical Note [facility] Paddle8 System Devyn Vásquez MD [address] [place] [address] [phone] Social History Tobacco Use Types Packs/Day Years [...] - [facility] [address] [facility] [facility] [address] [place] [phone] Brenda Clay MD [address] [facility] [address] [place] [address] 04/15/2026 10:00 AM EDT Office Visit [facility] [address] [facility] [address] [place] [address] Sena Dominguez PA [address] [facility] [place] [address] documented as of this encounter Visit Diagnoses Not on filedocumented in this encounter Care Teams Log Manager Relationship Specialty Start Date End Date Meme Steel MD [address] [place] [address] [place] [address] PCP - General Pediatrics 06/05/18 04/25/22 No Pcp, Pcp PCP - General 06/08/22 07/19/22 Guadalupe Mcbride MD PCP - General Family Medicine 07/20/22 11/01/23 Sena Dominguze PA [address] [place] [address] [place] [address] PCP - BRADY Physician Flux Tube Attendant 11/02/23 Levy Barry MD [address] [place] [address] [place] [address] PCP - General Family Medicine 12/20/23 documented as of this encounter
--- OUTSIDE RECORDS SUMMARY | 2025-08-08 14:40 | XMS_ITS | Encounter Summary ---
Author Organization [facility] work ([facility]) Address [address] [place] [address] Care Team Providers Care Jordan Man Name Role Phone Meme Steel MD Primary Care Provider [phone] Pcp, Pcp Primary Care Provider Unavailabl Guadalupe Bardales MD Primary Care Provider [phone] Sena Dominguez Unavailable [phone] Levy Barry MD Primary Care Provider Unavailab le Source Comments The information that you have received may contain highly confidential and/or federally protected health information. This information has been disclosed to you from records protected by [facility]. The law prohibits [...] contact the sender immediately.[facility] ([facility]) Encounter Details Date Type Department Care Team (Late st Contact Info) Description 01/26/2005 Historical Note SVM[facility] [employer] System Devyn Vásquez MD [address] [place] [address] [id number] Social History Tobacco Use Types Packs/Day Years [...] LEATHA CARRILLO - [facility] [address] [facility] [address] [place] [phone] Brenda Clay MD [address] [facility] [address] [place] [address] 04/15/2026 10:00 AM EDT Office Visit [facility]HA Primary [facility] at [facility] + [facility] [address] [facility] [address] [place] [address] Sena Dominguez PA [address] [facility] [place] [address] documented as of this encounter Visit Diagnoses Not on filedocumented in this encounter Care Teams Jordan Man Relationship Specialty Start Date End Date Meme Steel MD [address] [place] [address] 105 [place] [address] PCP - General Pediatrics 06/05/18 04/25/22 No Pcp, Pcp PCP - General 06/08/22 07/19/22 Guadalupe Mcbride MD PCP - General Family Medicine 07/20/22 11/01/23 Sena Dominguez PA [address] [place] [address] [place] [address] PCP - BRADY Physician Pest Locator 11/02/23 Levy Barry MD [address] [place] [address] [place] [address] PCP - General Family Medicine 12/20/23 documented as of this encounter
--- OUTSIDE RECORDS SUMMARY | 2025-08-08 14:40 | XMS_ITS | Encounter Summary ---
Author Organization [facility] work ([facility]) Address [address] [place] [address] Care Team Providers Care Edge Banding Off Bearer Name Role Phone Meme Steel MD Primary Care Provider [phone] Pcp, Pcp Primary Care Provider Unavailabl Guadalupe Bardales MD Primary Care Provider [phone] Sena Dominguez Unavailable [phone] Levy Barry MD Primary Care Provider Unavailab le Source Comments The information that you have received may contain highly confidential and/or federally protected health information. This information has been disclosed to you from records protected by [facility]. The law prohibits you from making [...] sender immediately.[facility] ([facility]) Encounter Details Date Type Department Care Team (Late st Contact Info) Description 2004 Historical Note SVMG Resource Capital System Devyn Vásquez MD [address] [place] [address] [phone] Social History Tobacco Use Types Packs/Day Years [...] CARRILLO - [facility] [address] [facility] [address] [place] [phone] Brenda Clay MD [address] [facility] [address] [place] [address] 04/15/2026 10:00 AM EDT Office Visit [facility]HA [facility] at [facility] + [facility] [address] [facility] [address] [place] [address] Sena Dominguez PA [address] [facility] [place] [address] documented as of this encounter Visit Diagnoses Not on filedocumented in this encounter Care Teams Edge Banding Off Bearer Relationship Specialty Start Date End Date Meme Steel MD [address] [place] [address] 105 [place] [address] PCP - General Pediatrics 06/05/18 04/25/22 No Pcp, Pcp PCP - General 06/08/22 07/19/22 Guadalupe Mcbride MD PCP - General Family Medicine 07/20/22 11/01/23 Sena Dominguez PA [address] [place] [address] [place] [address] PCP - BRADY Physician Remote Control Assembler 11/02/23 Levy Barry MD [address] [place] [address] [place] [address] PCP - General Family Medicine 12/20/23 documented as of this encounter
--- OUTSIDE RECORDS SUMMARY | 2025-08-08 14:40 | XMS_ITS | Encounter Summary ---
Author Organization [facility] work ([facility]) Address [address] [place] [address] Care Team Providers Care Intermediate Designer Name Role Phone Meme Steel MD Primary Care Provider [phone] Pcp, Pcp Primary Care Provider Unavailabl Guadalupe Bardales MD Primary Care Provider [phone] Sena Dominguez Unavailable [phone] Levy Barry MD Primary Care Provider Unavailab le Source Comments The information that you have received may contain highly confidential and/or federally protected health information. This information has been disclosed to you from records protected by [facility]. The law prohibits you from [...] error, please contact the sender immediately.[facility] ([facility]) Encounter Details Date Type Department Care Team (Late st Contact Info) Description 2004 Historical Note [facility] StarbuckLabs2 System Devyn Vásquez MD [address] [place] [address] [phone] Social History Tobacco Use Types Packs/Day Years [...] - [facility] [address] [facility] [address] [place] [phone] Brenda Clay MD [address] [facility] [address] [place] [address] 04/15/2026 10:00 AM EDT Office Visit [facility] at [facility] + [facility] [address] [facility] [address] [place] [address] Sena Dominguez PA [address] [facility] [place] [address] documented as of this encounter Visit Diagnoses Not on filedocumented in this encounter Care Teams Intermediate Designer Relationship Specialty Start Date End Date Meme Steel MD [address] [place] [address] 105 [place] [address] PCP - General Pediatrics 06/05/18 04/25/22 No Pcp, Pcp PCP - General 06/08/22 07/19/22 Guadalupe Mcbride MD PCP - General Family Medicine 07/20/22 11/01/23 Sena Dominguez PA [address] [place] [address] [place] [address] PCP - BRADY Physician Network Engineering Advisor 11/02/23 Levy Barry MD [address] [place] [address] [place] [address] PCP - General Family Medicine 12/20/23 documented as of this encounter
--- OUTSIDE RECORDS SUMMARY | 2025-08-08 14:40 | XMS_ITS | Encounter Summary ---
Author Organization [facility] work ([facility]) Address [address] [place] [address] Care Team Providers Care Mimeographer Name Role Phone Meme Steel MD Primary Care Provider [phone] Pcp, Pcp Primary Care Provider Unavailabl Guadalupe Bardales MD Primary Care Provider [phone] Sena Dominguez Unavailable [phone] Levy Barry MD Primary Care Provider Unavailab le Source Comments The information that you have received may contain highly confidential and/or federally protected health information. This information has been disclosed to you from records protected by [facility]. The law prohibits you [...] please contact the sender immediately.[facility] ([facility]) Encounter Details Date Type Department Care Team (Late st Contact Info) Description 11/27/2015 Historical Note [facility] TravelTipz.[employer] System Devyn Vásquez MD [address] [place] [address] [phone] Social History Tobacco Use Types Packs/Day Years [...] CARRILLO - [facility] at [facility] [address] [facility] [address] [place] [phone] Brenda Clay MD [address] [facility] [address] [place] [phone] 04/15/2026 10:00 AM EDT Office Visit [facility]HA [facility] at [facility] + [facility] [address] [facility] [address] [place] [address] Sena Dominguez PA [address] [facility] [place] [address] documented as of this encounter Visit Diagnoses Not on filedocumented in this encounter Care Teams Mimeographer Relationship Specialty Start Date End Date Meme Steel MD [address] [place] [address] 105 [place] [address] PCP - General Pediatrics 06/05/18 04/25/22 No Pcp, Pcp PCP - General 06/08/22 07/19/22 Guadalupe Mcbride MD PCP - General Family Medicine 07/20/22 11/01/23 Sena Dominguez PA [address] [place] [address] [place] [address] PCP - BRADY Physician Scaler Packer 11/02/23 Levy Barry MD [address] [place] [address] [place] [address] PCP - General Family Medicine 12/20/23 documented as of this encounter
--- OUTSIDE RECORDS SUMMARY | 2025-08-08 14:40 | XMS_ITS | Encounter Summary ---
Author Organization [facility] work ([facility]) Address [address] [place] [address] Care Team Providers Care City Designer Name Role Phone Meme Steel MD Primary Care Provider [phone] Pcp, Pcp Primary Care Provider Unavailabl Guadalupe Bardales MD Primary Care Provider [phone] Sena Dominguez Unavailable [phone] Levy Barry MD Primary Care Provider Unavailab le Source Comments The information that you have received may contain highly confidential and/or federally protected health information. This information has been disclosed to you from records protected by [facility]. The law prohibits you [...] Contact Info) Description 08/06/2009 Historical Note [facility] Domob System Devyn Vásquez MD [address] [place] [address] [phone] Social History Tobacco Use Types Packs/Day Years [...] Office Visit LEATHA CARRILLO - [facility] [address] [facility] [address] [place] [phone] Brenda Clay MD [address] [facility] [address] [place] [phone] 04/15/2026 10:00 AM EDT Office Visit [facility]HA [facility] at [facility] + [facility] [address] [facility] [address] [place] [address] Sena Dominguez PA [address] [facility] [place] [address] documented as of this encounter Visit Diagnoses Not on filedocumented in this encounter Care Teams City Designer Relationship Specialty Start Date End Date Meme Steel MD [address] [place] [address] 105 [place] [address] PCP - General Pediatrics 06/05/18 04/25/22 No Pcp, Pcp PCP - General 06/08/22 07/19/22 Guadalupe Mcbride MD PCP - General Family Medicine 07/20/22 11/01/23 Sena Dominguez PA [address] [place] [address] [place] [address] PCP - BRADY Physician Harnessmaker Apprentice 11/02/23 Levy Barry MD [address] [place] [address] [place] [address] PCP - General Family Medicine 12/20/23 documented as of this encounter
--- OUTSIDE RECORDS SUMMARY | 2025-08-08 14:40 | XMS_ITS | Encounter Summary ---
Author Organization [facility] work ([facility]) Address [address] [place] [address] Care Team Providers Care Athletic Agent Name Role Phone Meme Steel MD Primary Care Provider [phone] Pcp, Pcp Primary Care Provider Unavailabl Guadalupe Bardales MD Primary Care Provider [phone] Sena Dominguez Unavailable [phone] Levy Barry MD Primary Care Provider Unavailab le Source Comments The information that you have received may contain highly confidential and/or federally protected health information. This information has been disclosed to you from records protected by [facility]. The law prohibits you [...] error, please contact the sender immediately.[facility] ([facility]) Encounter Details Date Type Department Care Team (Late st Contact Info) Description 2004 Historical Note [facility] Funky Moves System Devyn Vásquez MD [address] [place] [address] [phone] Social History Tobacco Use Types Packs/Day Years [...] - [facility] [address] [facility] [address] [place] [phone] Brenda Clay MD [address] [facility] [address] [place] [address] 04/15/2026 10:00 AM EDT Office Visit LE[facility]HA [facility] at [facility] + [facility] [address] [facility] [address] [place] [address] Sena Dominguez PA [address] [facility] [place] [address] documented as of this encounter Visit Diagnoses Not on filedocumented in this encounter Care Teams Athletic Agent Relationship Specialty Start Date End Date Meme Steel MD [address] [place] [address] 105 [place] [address] PCP - General Pediatrics 06/05/18 04/25/22 No Pcp, Pcp PCP - General 06/08/22 07/19/22 Guadalupe Mcbride MD PCP - General Family Medicine 07/20/22 11/01/23 Sena Dominguez PA [address] [place] [address] [place] [address] PCP - BRADY Physician Concert Manager 11/02/23 Levy Barry MD [address] [place] [address] [place] [address] PCP - General Family Medicine 12/20/23 documented as of this encounter
--- OUTSIDE RECORDS SUMMARY | 2025-08-08 14:40 | XMS_ITS | Encounter Summary ---
Author Organization [facility] work ([facility]) Address [address] [place] [address] Care Team Providers Care Yarn Sorter Name Role Phone Meme Steel MD Primary Care Provider [phone] Pcp, Pcp Primary Care Provider Unavailabl Guadalupe Bardales MD Primary Care Provider [phone] Sena Dominguez Unavailable [phone] Levy Barry MD Primary Care Provider Unavailab le Source Comments The information that you have received may contain highly confidential and/or federally protected health information. This information has been disclosed to you from records protected by [facility]. The law prohibits you from [...] please contact the sender immediately.[facility] ([facility]) Encounter Details Date Type Department Care Team (Late st Contact Info) Description 03/03/2005 Historical Note [facility] Code On Network Coding System Devyn Vásquez MD [address] [place] [address] [phone] Social History Tobacco Use Types Packs/Day Years [...] LEATHA CARRILLO - [facility] at [facility] [address] [facility] [address] [place] [phone] Brenda Clay MD [address] [facility] [address] [place] [phone] 04/15/2026 10:00 AM EDT Office Visit LEATHA Primary Care at [facility] + [facility] [address] [facility] [address] [place] [address] Sena Dominguez PA [address] [facility] [place] [address] documented as of this encounter Visit Diagnoses Not on filedocumented in this encounter Care Teams Yarn Sorter Relationship Specialty Start Date End Date Meme Steel MD [address] [place] [address] 105 [place] [address] PCP - General Pediatrics 06/05/18 04/25/22 No Pcp, Pcp PCP - General 06/08/22 07/19/22 Guadalupe Mcbride MD PCP - General Family Medicine 07/20/22 11/01/23 Sena Dominguez PA [address] [place] [address] [place] [address] PCP - BRADY Physician Insurance Loss Assessor 11/02/23 Levy Barry MD [address] [place] [address] [place] [address] PCP - General Family Medicine 12/20/23 documented as of this encounter
--- OUTSIDE RECORDS SUMMARY | 2025-08-08 14:40 | XMS_ITS | Encounter Summary ---
Author Organization [facility] work ([facility]) Address [address] [place] [address] Care Team Providers Care Electrogalvanizing Machine Operator Name Role Phone Meme Steel MD Primary Care Provider [phone] No Pcp, Pcp Primary Care Provider Unavailabl Guadalupe Bardales MD Primary Care Provider [phone] Sena Dominguez Unavailable [phone] Levy Barry MD Primary Care Provider Unavailab le Source Comments The information that you have received may contain highly confidential and/or federally protected health information. This information has been disclosed to you from records protected by [facility]. The law prohibits you from [...] error, please contact the sender immediately.[facility] ([facility]) Encounter Details Date Type Department Care Team (Late st Contact Info) Description 03/09/2005 Historical Note SVMG [employer] System Devyn Vásquez MD [address] [place] [address] [phone] Social History Tobacco Use Types Packs/Day Years [...] - [facility] [address] [facility] [address] [place] [phone] Brenda Clay MD [address] [facility] [address] [place] [address] 04/15/2026 10:00 AM EDT Office Visit [facility]HA Primary [facility] at [facility] + [facility] [address] [facility] [address] [place] [address] Sena Dominguez PA [address] [facility] [place] [address] documented as of this encounter Visit Diagnoses Not on filedocumented in this encounter Care Teams Electrogalvanizing Machine Operator Relationship Specialty Start Date End Date Meme Steel MD [address] [place] [address] 105 [place] [address] PCP - General Pediatrics 06/05/18 04/25/22 No Pcp, Pcp PCP - General 06/08/22 07/19/22 Guadalupe Mcbride MD PCP - General Family Medicine 07/20/22 11/01/23 Sena Dominguez PA [address] [place] [address] [place] [address] PCP - BRADY Physician Brake [address] Freight 11/02/23 Levy Barry MD [address] [place] [address] [place] [address] PCP - General Family Medicine 12/20/23 documented as of this encounter
--- OUTSIDE RECORDS SUMMARY | 2025-08-08 14:40 | XMS_ITS | Encounter Summary ---
Author Organization [facility] work ([facility]) Address [address] [facility] [address] [address] [place] [address] Care Team Providers Care Door To Door Lead Generation Name Role Phone Meme Steel MD Primary Care Provider No Pcp, Pcp Primary Care Provider Unavailabl Guadalupe Bardales MD Primary Care Provider [phone] Sena Dominguez Unavailable Levy Barry MD Primary Care Provider Unavailab le Source Comments The information that you have received may contain highly confidential and/or federally protected health information. This information has been disclosed to you from records protected by [facility]. The law prohibits you from [...] contact the sender immediately.[facility] ([facility]) Encounter Details Date Type Department Care Team (Late st Contact Info) Description 03/02/2005 Historical Note [facility] Devyn Vásquez MD [address] [place] [address] [phone] Social History Tobacco Use Types Packs/Day Years [...] - [facility] [address] [facility] [address] [place] [phone] Brenda Clay MD [address] [facility] [address] [place] [address] 04/15/2026 10:00 AM EDT Office Visit LE[facility]HA [facility] at [facility] + [facility] [address] [facility] [address] [place] [address] Sena Dominguez PA [address] [facility] [place] [address] documented as of this encounter Visit Diagnoses Not on filedocumented in this encounter Care Teams Door To Door Lead Generation Relationship Specialty Start Date End Date Meme Steel MD [address] [place] [address] 105 [place] [address] PCP - General Pediatrics 06/05/18 04/25/22 No Pcp, Pcp PCP - General 06/08/22 07/19/22 Guadalupe Mcbride MD PCP - General Family Medicine 07/20/22 11/01/23 Sena Dominguez PA [address] [place] [address] [place] [address] PCP - BRADY Physician Slip Operator 11/02/23 Levy Barry MD [address] [place] [address] [place] [address] PCP - General Family Medicine 12/20/23 documented as of this encounter
--- OUTSIDE RECORDS SUMMARY | 2025-08-08 14:40 | XMS_ITS | Encounter Summary ---
Author Organization [facility] work ([facility]) Address [address] [place] [address] Care Team Providers Care Cant Hooker Name Role Phone Meme Steel MD Primary Care Provider [phone] Pcp, Pcp Primary Care Provider Unavailabl Guadalupe Bardales MD Primary Care Provider [phone] Sena Dominguez Unavailable [phone] Levy Barry MD Primary Care Provider Unavailab le Source Comments The information that you have received may contain highly confidential and/or federally protected health information. This information has been disclosed to you from records protected by [facility]. The law prohibits you [...] contact the sender immediately.[facility] ([facility]) Encounter Details Date Type Department Care Team (Late st Contact Info) Description 01/07/2016 Historical Note [facility] MedPassage System Devyn Vásquez MD [address] [place] [address] [phone] Social History Tobacco Use Types Packs/Day Years [...] Visit LEATHA CARRILLO - [facility] [address] [facility] [address] [place] [phone] Brenda Clay MD [address] [facility] [address] [place] [address] 04/15/2026 10:00 AM EDT Office Visit LEATHA [facility] + [facility] [address] [facility] [address] [place] [address] Sena Dominguez PA [address] [facility] [place] [address] documented as of this encounter Visit Diagnoses Not on filedocumented in this encounter Care Teams Cant Hooker Relationship Specialty Start Date End Date Meme Steel MD [address] [place] [address] [place] [address] PCP - General Pediatrics 06/05/18 04/25/22 No Pcp, Pcp PCP - General 06/08/22 07/19/22 Guadalupe Mcbride MD PCP - General Family Medicine 07/20/22 11/01/23 Sena Dominguez PA [address] [place] [address] [place] [address] PCP - BRADY Physician Petrography Teacher 11/02/23 Levy Barry MD [address] [place] [address] [place] [address] PCP - General Family Medicine 12/20/23 documented as of this encounter
--- OUTSIDE RECORDS SUMMARY | 2025-08-08 14:40 | XMS_ITS | Encounter Summary ---
Author Organization [facility] work ([facility]) Address [address] [place] [address] Care Team Providers Care Turkey Pinner Name Role Phone Meme Steel MD Primary Care Provider [phone] Pcp, Pcp Primary Care Provider Unavailabl Guadalupe Bardales MD Primary Care Provider [phone] Sena Dominguez Unavailable [phone] Levy Barry MD Primary Care Provider Unavailab le Source Comments The information that you have received may contain highly confidential and/or federally protected health information. This information has been disclosed to you from records protected by [facility]. The law prohibits you from making [...] sender immediately.[facility] ([facility]) Encounter Details Date Type Department Care Team (Late st Contact Info) Description 08/06/2009 Historical Note [facility] TeleCIS Wireless System Devyn Vásquez MD [address] [place] [address] [phone] Social History Tobacco Use Types Packs/Day Years [...] CARRILLO - [facility] [address] [facility] [address] [place] [phone] Brenda Clay MD [address] [facility] [address] [place] [address] 04/15/2026 10:00 AM EDT Office Visit LEATHA Primary [facility] at [facility] [address] [facility] [address] [place] [address] Sena Dominguez PA [address] [facility] [place] [address] documented as of this encounter Visit Diagnoses Not on filedocumented in this encounter Care Teams Turkey Pinner Relationship Specialty Start Date End Date Meme Steel MD [address] [place] [address] 105 [place] [address] PCP - General Pediatrics 06/05/18 04/25/22 No Pcp, Pcp PCP - General 06/08/22 07/19/22 Guadalupe Mcbride MD PCP - General Family Medicine 07/20/22 11/01/23 Sena Dominguez PA [address] [place] [address] [place] [address] PCP - BRADY Physician Fruit And Vegetable Packer 11/02/23 Levy Barry MD [address] [place] [address] [place] [address] PCP - General Family Medicine 12/20/23 documented as of this encounter
--- OUTSIDE RECORDS SUMMARY | 2025-08-08 14:40 | XMS_ITS | Encounter Summary ---
Author Organization [facility] work ([facility]) Address [address] [place] [address] Care Team Providers Care Grinder Name Role Phone Meme Steel MD Primary Care Provider [phone] Pcp, Pcp Primary Care Provider Unavailabl Guadalupe Baradles MD Primary Care Provider [phone] Sena Dominguez Unavailable [phone] Levy Barry MD Primary Care Provider Unavailab le Source Comments The information that you have received may contain highly confidential and/or federally protected health information. This information has been disclosed to you from records protected by [facility]. The law prohibits you from making [...] error, please contact the sender immediately.[facility] ([facility]) Encounter Details Date Type Department Care Team (Late st Contact Info) Description 04/10/2009 Historical Note [facility] MedaPhor System Devyn Vásquez MD [address] [place] [address] [phone] Social History Tobacco Use Types Packs/Day Years [...] CARRILLO - [facility] [address] [facility] [address] [place] [phone] Brenda Clay MD [address] [facility] [address] [place] [address] 04/15/2026 10:00 AM EDT Office Visit LEATHA [facility] at [facility] + [facility] [address] [facility] [address] [place] [address] Sena Dominguez PA [address] [facility] [place] [address] documented as of this encounter Visit Diagnoses Not on filedocumented in this encounter Care Teams Grinder Relationship Specialty Start Date End Date Meme Steel MD [address] [place] [address] 105 [place] [address] PCP - General Pediatrics 06/05/18 04/25/22 No Pcp, Pcp PCP - General 06/08/22 07/19/22 Guadalupe Mcbride MD PCP - General Family Medicine 07/20/22 11/01/23 Sena Dominguez PA [address] [place] [address] [place] [address] PCP - BRADY Physician Grill Chef 11/02/23 Levy Barry MD [address] [place] [address] [place] [address] PCP - General Family Medicine 12/20/23 documented as of this encounter
--- OUTSIDE RECORDS SUMMARY | 2025-08-08 14:40 | XMS_ITS | Encounter Summary ---
Author Organization [facility] work ([facility]) Address [address] [place] [address] Care Team Providers Care Sales Applications Engineer Name Role Phone Meme Steel MD Primary Care Provider [phone] No Pcp, Pcp Primary Care Provider Unavailabl Guadalupe Bardales MD Primary Care Provider [phone] Sena Dominguez Unavailable Levy Barry MD Primary Care Provider Unavailab le Source Comments The information that you have received may contain highly confidential and/or federally protected health information. This information has been disclosed to you from records protected by [facility]. The law prohibits you [...] the sender immediately.[facility] ([facility]) Encounter Details Date Type Department Care Team (Late st Contact Info) Description 05/28/2015 Historical Note [facility] [employer] [facility] Devyn Vásquez MD [address] [place] [address] [phone] Social History Tobacco Use Types Packs/Day Years [...] CARRILLO - [facility] [address] [facility] [address] [place] [phone] Brenda Clay MD [address] [facility] [address] [place] [address] 04/15/2026 10:00 AM EDT Office Visit LEATHA [facility] at [facility] + [facility] [address] [facility] [address] [place] [address] Sena Dominguez PA [address] [facility] [place] [address] documented as of this encounter Visit Diagnoses Not on filedocumented in this encounter Care Teams Sales Applications Engineer Relationship Specialty Start Date End Date Meme Steel MD [address] [place] [address] 105 [place] [address] PCP - General Pediatrics 06/05/18 04/25/22 No Pcp, Pcp PCP - General 06/08/22 07/19/22 Guadalupe Mcbride MD PCP - General Family Medicine 07/20/22 11/01/23 Sena Dominguez PA [address] [place] [address] [place] [address] PCP - BRADY Physician Unix Analyst 11/02/23 Levy Barry MD [address] [place] [address] [place] [address] PCP - General Family Medicine 12/20/23 documented as of this encounter"
--- OUTSIDE RECORDS SUMMARY | 2025-08-08 14:40 | XMS_ITS | Encounter Summary ---
Author Organization [facility] work ([facility]) Address [address] [place] [address] Care Team Providers Care Autism Teacher Name Role Phone Meme Steel MD Primary Care Provider No Pcp, Pcp Primary Care Provider Unavailabl Guadalupe Bardales MD Primary Care Provider [phone] Sena Dominguez Unavailable [phone] Levy Barry MD Primary Care Provider Unavailab le Source Comments The information that you have received may contain highly confidential and/or federally protected health information. This information has been disclosed to you from records protected by [facility]. The law prohibits you from [...] error, please contact the sender immediately.[facility] ([facility]) Encounter Details Date Type Department Care Team (Late st Contact Info) Description 04/12/2005 Historical Note [facility] Civolution System Devyn Vásquez MD [address] [place] [address] [phone] Social History Tobacco Use Types Packs/Day Years [...] CARRILLO - [facility] [address] [facility] [address] [place] [phone] Brenda Clay MD [address] [facility] [address] [place] [address] 04/15/2026 10:00 AM EDT Office Visit LE[facility]HA [facility] at [facility] [address] [facility] [address] [place] [address] Sena Dominguez PA [address] [facility] [place] [address] documented as of this encounter Visit Diagnoses Not on filedocumented in this encounter Care Teams Autism Teacher Relationship Specialty Start Date End Date Meme Steel MD [address] [place] [address] 105 [place] [address] PCP - General Pediatrics 06/05/18 04/25/22 No Pcp, Pcp PCP - General 06/08/22 07/19/22 Guadalupe Mcbride MD PCP - General Family Medicine 07/20/22 11/01/23 Sena Dominguez PA [address] [place] [address] [place] [address] PCP - BRADY Physician Tar Leveler 11/02/23 Levy Barry MD [address] [place] [address] [place] [address] PCP - General Family Medicine 12/20/23 documented as of this encounter
--- OUTSIDE RECORDS SUMMARY | 2025-08-08 14:40 | XMS_ITS | Encounter Summary ---
Author Organization [facility] work ([facility]) Address [address] [place] [address] Care Team Providers Care Salesperson Floor Coverings Name Role Phone Meme Steel MD Primary Care Provider [phone] Pcp, Pcp Primary Care Provider Unavailabl Guadalupe Bardales MD Primary Care Provider [phone] Sena Dominguez Unavailable [phone] Levy Barry MD Primary Care Provider Unavailab le Source Comments The information that you have received may contain highly confidential and/or federally protected health information. This information has been disclosed to you from records protected by [facility]. The law prohibits you from [...] please contact the sender immediately.[facility] ([facility]) Encounter Details Date Type Department Care Team (Late st Contact Info) Description 04/09/2009 Historical Note [facility] FastCustomer System Devyn Vásquez MD [address] [place] [address] [phone] Social History Tobacco Use Types Packs/Day Years [...] CARRILLO - [facility] [address] [facility] [address] [place] [phone] Brenda Clay MD [address] [facility] [address] [place] [address] 04/15/2026 10:00 AM EDT Office Visit LEATHA [facility] at [facility] + [facility] [address] [facility] [address] [place] [address] Sena Dominguez PA [address] [facility] [place] [address] documented as of this encounter Visit Diagnoses Not on filedocumented in this encounter Care Teams Salesperson Floor Coverings Relationship Specialty Start Date End Date Meme Steel MD [address] [place] [address] 105 [place] [address] PCP - General Pediatrics 06/05/18 04/25/22 No Pcp, Pcp PCP - General 06/08/22 07/19/22 Guadalupe Mcbride MD PCP - General Family Medicine 07/20/22 11/01/23 Sena Dominguez PA [address] [place] [address] [place] [address] PCP - BRADY Physician Utilities Estimator And Drafter 11/02/23 Levy Barry MD [address] [place] [address] [place] [address] PCP - General Family Medicine 12/20/23 documented as of this encounter
--- OUTSIDE RECORDS SUMMARY | 2025-08-08 14:40 | XMS_ITS | Encounter Summary ---
Author Organization [facility] work ([facility]) Address [address] [facility] [address] [place] [address] Care Team Providers Care Bond Writer Name Role Phone Meme Steel MD Primary Care Provider [phone] Pcp, Pcp Primary Care Provider Unavailabl Guadalupe Bardales MD Primary Care Provider [phone] Sena Dominguez Unavailable [phone] Levy Barry MD Primary Care Provider Unavailab le Source Comments The information that you have received may contain highly confidential and/or federally protected health information. This information has been disclosed to you from records protected by [facility]. The law prohibits you [...] error, please contact the sender immediately.[facility] ([facility]) Encounter Details Date Type Department Care Team (Late st Contact Info) Description 10/02/2008 Historical Note [facility] The Shop Expert System Devyn Vásquez MD [address] [place] [address] 202031 Social History Tobacco Use Types Packs/Day Years [...] LEATHA CARRILLO - [facility] [address] [facility] [address] [place] [phone] Brenda Clay MD [address] [facility] [address] [place] [address] 04/15/2026 10:00 AM EDT Office Visit LEATHA Primary [facility] at [facility] + [facility] [address] [facility] [address] [place] [address] Sena Dominguez PA [address] [facility] [place] [address] documented as of this encounter Visit Diagnoses Not on filedocumented in this encounter Care Teams Bond Writer Relationship Specialty Start Date End Date Meme Steel MD [address] [place] [address] 105 [place] [address] PCP - General Pediatrics 06/05/18 04/25/22 No Pcp, Pcp PCP - General 06/08/22 07/19/22 Guadalupe Mcbrdie MD PCP - General Family Medicine 07/20/22 11/01/23 Sena Dominguez PA [address] [place] [address] [place] [address] PCP - BRADY Physician Photo Checker 11/02/23 Levy Barry MD [address] [place] [address] [place] [address] PCP - General Family Medicine 12/20/23 documented as of this encounter
--- OUTSIDE RECORDS SUMMARY | 2025-08-08 14:40 | XMS_ITS | Encounter Summary ---
Author Organization [facility] work ([facility]) Address [address] [place] [address] Care Team Providers Care General Maintenance Technician Name Role Phone Meme Steel MD Primary Care Provider [phone] Pcp, Pcp Primary Care Provider Unavailabl Guadalupe Bardales MD Primary Care Provider [phone] Sena Dominguez Unavailable [phone] Levy Barry MD Primary Care Provider Unavailab le Source Comments The information that you have received may contain highly confidential and/or federally protected health information. This information has been disclosed to you from records protected by [facility]. The law prohibits you [...] please contact the sender immediately.[facility] ([facility]) Encounter Details Date Type Department Care Team (Late st Contact Info) Description 04/09/2009 Historical Note [facility] CareView Communications System Devyn Vásquez MD [address] [place] [address] [phone] Social History Tobacco Use Types Packs/Day Years [...] CARRILLO - [facility] [address] [facility] [address] [place] [phone] Brenda Clay MD [address] [facility] [address] [place] [address] 04/15/2026 10:00 AM EDT Office Visit LEATHA [facility] at [facility] + [facility] [address] [facility] [address] [place] [address] Sena Dominguez PA [address] [facility] [place] [address] documented as of this encounter Visit Diagnoses Not on filedocumented in this encounter Care Teams General Maintenance Technician Relationship Specialty Start Date End Date Meme Steel MD [address] [place] [address] 105 [place] [address] PCP - General Pediatrics 06/05/18 04/25/22 No Pcp, Pcp PCP - General 06/08/22 07/19/22 Guadalupe Mcbride MD PCP - General Family Medicine 07/20/22 11/01/23 Sena Dominguez PA [address] [place] [address] [place] [address] PCP - BRADY Physician Steel Pickler 11/02/23 Levy Barry MD [address] [place] [address] [place] [address] PCP - General Family Medicine 12/20/23 documented as of this encounter
--- OUTSIDE RECORDS SUMMARY | 2025-08-08 14:40 | XMS_ITS | Encounter Summary ---
Author Organization [facility] work ([facility]) Address [address] [place] [address] Care Team Providers Care Practice Performance Manager Name Role Phone Meme Steel MD Primary Care Provider [phone] No Pcp, Pcp Primary Care Provider Unavailabl Guadalupe Bardales MD Primary Care Provider [phone] Sena Dominguez Unavailable [phone] Levy Barry MD Primary Care Provider Unavailab le Source Comments The information that you have received may contain highly confidential and/or federally protected health information. This information has been disclosed to you from records protected by [facility]. The law prohibits you from making [...] contact the sender immediately.[facility] ([facility]) Encounter Details Date Type Department Care Team (Late st Contact Info) Description 12/31/2015 Historical Note [facility] Trenergi System Devyn Vásquez MD [address] [place] [address] [phone] Social History Tobacco Use Types Packs/Day Years [...] - [facility] [address] [facility] [address] [place] [phone] Brenda Clay MD [address] [facility] [address] [place] [address] 04/15/2026 10:00 AM EDT Office Visit LEATHA [facility] at [facility] [address] [facility] [address] [place] [address] Sena Dominguez PA [address] [facility] [place] [address] documented as of this encounter Visit Diagnoses Not on filedocumented in this encounter Care Teams Practice Performance Manager Relationship Specialty Start Date End Date Meme Steel MD [address] [place] [address] 105 [place] [address] PCP - General Pediatrics 06/05/18 04/25/22 No Pcp, Pcp PCP - General 06/08/22 07/19/22 Guadalupe Mcbride MD PCP - General Family Medicine 07/20/22 11/01/23 Sena Dominguez PA [address] [place] [address] [place] [address] PCP - BRADY Physician Supervisor Hanging And Trimming 11/02/23 Levy Barry MD [address] [place] [address] [place] [address] PCP - General Family Medicine 12/20/23 documented as of this encounter
--- OUTSIDE RECORDS SUMMARY | 2025-08-08 14:41 | XMS_ITS | Encounter Summary ---
Author Organization [facility] work ([facility] Address [address] [place] [address] Care Team Providers Care Senior Dot Net Developer Name Role Phone Meme Steel MD Primary Care Provider [phone] No Pcp, Pcp Primary Care Provider Unavailabl Guadalupe Bardales MD Primary Care Provider [phone] Sena Dominguez Unavailable [phone] Levy Barry MD Primary Care Provider Unavailab le Source Comments The information that you have received may contain highly confidential and/or federally protected health information. This information has been disclosed to you from records protected by [facility]. The law prohibits [...] Contact Info) Description 11/27/2015 Historical Note [facility] Repligen System Devyn Vásquez MD [address] [place] [address] [phone] Social History Tobacco Use Types Packs/Day Years [...] CARRILLO - [facility] [address] [facility] [address] [place] [phone] Brenda Clay MD [address] [facility] [address] [place] [address] 04/15/2026 10:00 AM EDT Office Visit LEATHA [facility] at [facility] + [facility] [address] [facility] [address] [place] [address] Sena Dominguez PA [address] [facility] [place] [address] documented as of this encounter Visit Diagnoses Not on filedocumented in this encounter Care Teams Senior Dot Net Developer Relationship Specialty Start Date End Date Meme Steel MD [address] [place] [address] 105 [place] [address] PCP - General Pediatrics 06/05/18 04/25/22 No Pcp, Pcp PCP - General 06/08/22 07/19/22 Guadalupe Mcbride MD PCP - General Family Medicine 07/20/22 11/01/23 Sena Dominguez PA [address] [place] [address] [place] [address] PCP - BRADY Physician Thermoforming Machine Operator 11/02/23 Levy Barry MD [address] [place] [address] [place] [address] PCP - General Family Medicine 12/20/23 documented as of this encounter
--- OUTSIDE RECORDS SUMMARY | 2025-08-08 14:41 | XMS_ITS | Encounter Summary ---
Author Organization [facility] work ([facility]) Address [address] [place] [address] Care Team Providers Care Central Office Inspector Name Role Phone Meme Steel MD Primary Care Provider [phone] Pcp, Pcp Primary Care Provider Unavailabl Guadalupe Bardales MD Primary Care Provider [phone] Sena Dominguez Unavailable [phone] Levy Barry MD Primary Care Provider Unavailab le Source Comments The information that you have received may contain highly confidential and/or federally protected health information. This information has been disclosed to you from records protected by [employer] [facility]. The law prohibits you from [...] please contact the sender immediately.[facility] ([facility]) Encounter Details Date Type Department Care Team (Late st Contact Info) Description 02/18/2014 Historical Note [facility] [employer] [facility] Devyn Vásquez MD [address] [place] [address] [phone] Social History Tobacco Use Types Packs/Day Years [...] [facility] [address] [facility] [facility] [address] [place] [phone] Brenda Clay MD [address] [facility] [address] [place] [address] 04/15/2026 10:00 AM EDT Office Visit [facility] + [facility] [address] [place] [address] Sena Dominguez PA [address] [place] [address] documented as of this encounter Visit Diagnoses Not on filedocumented in this encounter Care Teams Central Office Inspector Relationship Specialty Start Date End Date Meme Steel MD [address] [place] [address] [place] [address] PCP - General Pediatrics 06/05/18 04/25/22 No Pcp, Pcp PCP - General 06/08/22 07/19/22 Guadalupe Mcbride MD PCP - General Family Medicine 07/20/22 11/01/23 Sena Dominguez PA [address] [place] [address] [place] [address] PCP - BRADY Physician Heater Planer Operator 11/02/23 Levy Barry MD [address] [place] [address] [place] [address] PCP - General Family Medicine 12/20/23 documented as of this encounter
--- OUTSIDE RECORDS SUMMARY | 2025-08-08 14:41 | XMS_ITS | Encounter Summary ---
Author Organization [facility] work ([facility]) Address [address] [place] [address] Care Team Providers Care Outdoor Education Teacher Name Role Phone Meme Steel MD Primary Care Provider [phone] Pcp, Pcp Primary Care Provider Unavailabl Guadalupe Bardales MD Primary Care Provider [phone] Sena Dominguez Unavailable [phone] Levy Barry MD Primary Care Provider Unavailab le Source Comments The information that you have received may contain highly confidential and/or federally protected health information. This information has been disclosed to you from records protected by [facility] [facility]. The law prohibits you [...] please contact the sender immediately.[facility] ([facility]) Encounter Details Date Type Department Care Team (Late st Contact Info) Description 01/03/2008 Historical Note [facility] E[employer] System Devyn Vásquez MD [address] [place] [address] [phone] Social History Tobacco Use Types Packs/Day Years [...] [facility] [address] [facility] [address] [place] [phone] Brenda Clay MD [address] [facility] [address] [place] [address] 04/15/2026 10:00 AM EDT Office Visit [facility] at [facility] + [facility] [address] [facility] [place] [address] Sena Dominguez PA [address] [facility] [facility] [place] [address] documented as of this encounter Visit Diagnoses Not on filedocumented in this encounter Care Teams Outdoor Education Teacher Relationship Specialty Start Date End Date Meme Steel MD [address] [place] [address] 105 [place] [address] PCP - General Pediatrics 06/05/18 04/25/22 No Pcp, Pcp PCP - General 06/08/22 07/19/22 Guadalupe Mcbride MD PCP - General Family Medicine 07/20/22 11/01/23 Sena Dominguez PA [address] [place] [address] [place] [address] PCP - BRADY Physician Payroll Lead 11/02/23 Levy Barry MD [address] [place] [address] [place] [address] PCP - General Family Medicine 12/20/23 documented as of this encounter
--- OUTSIDE RECORDS SUMMARY | 2025-08-08 14:41 | XMS_ITS | Encounter Summary ---
Author Organization [facility] work ([facility]) Address [address] [place] [address] Care Team Providers Care Payroll Accountant Name Role Phone Meme Steel MD Primary Care Provider [phone] Pcp, Pcp Primary Care Provider Unavailabl Guadalupe Bardales MD Primary Care Provider [phone] Sena Dominguez Unavailable [phone] Levy Barry MD Primary Care Provider Unavailab le Source Comments The information that you have received may contain highly confidential and/or federally protected health information. This information has been disclosed to you from records protected by [facility]. The law prohibits you from [...] please contact the sender immediately.[facility] ([facility]) Encounter Details Date Type Department Care Team (Late st Contact Info) Description 11/18/2014 Historical Note [facility] [employer] System Devyn Vásquez MD [address] [place] [address] [phone] Social History Tobacco Use Types Packs/Day Years [...] [facility] [address] [facility] [address] [place] [phone] Brenda Clay MD [address] [facility] [address] [place] [phone] 04/15/2026 10:00 AM EDT Office Visit [facility] at [facility] + [facility] [address] [facility] [facility] [address] [place] [address] Sena Dominguez PA [address] [facility] [place] [address] documented as of this encounter Visit Diagnoses Not on filedocumented in this encounter Care Teams Payroll Accountant Relationship Specialty Start Date End Date Meme Steel MD [address] [place] [address] 105 [place] [address] PCP - General Pediatrics 06/05/18 04/25/22 No Pcp, Pcp PCP - General 06/08/22 07/19/22 Guadalupe Mcbride MD PCP - General Family Medicine 07/20/22 11/01/23 Sena Dominguez PA [address] [place] [address] [place] [address] PCP - BRADY Physician Spring Tier 11/02/23 Levy Barry MD [address] [place] [address] [place] [address] PCP - General Family Medicine 12/20/23 documented as of this encounter
--- OUTSIDE RECORDS SUMMARY | 2025-08-08 14:41 | XMS_ITS | Encounter Summary ---
Author Organization [facility] work ([facility]) Address [address] [place] [address] Care Team Providers Care Billposting Supervisor Name Role Phone Meme Steel MD Primary Care Provider [phone] Pcp, Pcp Primary Care Provider Unavailabl Guadalupe Bardales MD Primary Care Provider [phone] Sena Dominguez Unavailable [phone] Levy Barry MD Primary Care Provider Unavailab le Source Comments The information that you have received may contain highly confidential and/or federally protected health information. This information has been disclosed to you from records protected by [facility]. The law prohibits you [...] [facility] ([facility]) Encounter Details Date Type Department Care Team (Late st Contact Info) Description 08/21/2014 Historical Note [facility] [employer] System Devyn Vásquez MD [address] [place] [address] [phone] Social History Tobacco Use Types Packs/Day Years [...] [facility] [place] [facility] [address] [facility] [address] [place] [phone] Brenda Clay MD [address] [facility] [address] [place] [address] 04/15/2026 10:00 AM EDT Office Visit [facility] at [facility] + [facility] [address] [facility] [address] [facility] [address] [place] [address] Sena Dominguez PA [address] [facility] [place] [address] documented as of this encounter Visit Diagnoses Not on filedocumented in this encounter Care Teams Billposting Supervisor Relationship Specialty Start Date End Date Meme Steel MD [address] [place] [address] 105 [place] [address] PCP - General Pediatrics 06/05/18 04/25/22 No Pcp, Pcp PCP - General 06/08/22 07/19/22 Guadalupe Mcbride MD PCP - General Family Medicine 07/20/22 11/01/23 Sena Dominguez PA [address] [place] [address] [place] [address] PCP - BRADY Physician Pearl Peller 11/02/23 Levy Barry MD [address] [place] [address] [place] [address] PCP - General Family Medicine 12/20/23 documented as of this encounter
--- OUTSIDE RECORDS SUMMARY | 2025-08-08 14:41 | XMS_ITS | Encounter Summary ---
Author Organization [facility] work ([facility]) Address [address] [place] [address] Care Team Providers Care Regional Program Manager Name Role Phone Meme Steel MD Primary Care Provider [phone] Pcp, Pcp Primary Care Provider Unavailabl Guadalupe Bardales MD Primary Care Provider [phone] Sena Dominguez Unavailable [phone] Levy Barry MD Primary Care Provider Unavailab le Source Comments The information that you have received may contain highly confidential and/or federally protected health information. This information has been disclosed to you from records protected by [facility]. The law prohibits you from [...] the sender immediately.[facility] ([facility]) Encounter Details Date Type Department Care Team (Late st Contact Info) Description 10/12/2015 Historical Note [facility] [employer] System Devyn Vásquez MD [address] [place] [address] [phone] Social History Tobacco Use Types Packs/Day Years [...] CARRILL[facility] - [facility] [address] [facility] [address] [place] [phone] Brenda Clay MD [address] [facility] [address] [place] [phone] 04/15/2026 10:00 AM EDT Office Visit [facility] at [facility] + [facility] [address] [facility] [address] [place] [address] Sena Dominguez PA [address] [facility] [place] [address] documented as of this encounter Visit Diagnoses Not on filedocumented in this encounter Care Teams Regional Program Manager Relationship Specialty Start Date End Date Meme Steel MD [address] [place] [address] 105 [place] [address] PCP - General Pediatrics 06/05/18 04/25/22 No Pcp, Pcp PCP - General 06/08/22 07/19/22 Guadalupe Mcbride MD PCP - General Family Medicine 07/20/22 11/01/23 Sena Dominguez PA [address] [place] [address] [place] [address] PCP - BRADY Physician Manager Financial Systems 11/02/23 Levy Barry MD [address] [place] [address] [place] [address] PCP - General Family Medicine 12/20/23 documented as of this encounter
--- OUTSIDE RECORDS SUMMARY | 2025-08-08 14:41 | XMS_ITS | Encounter Summary ---
Author Organization [facility] work ([facility]) Address [address] [place] [address] Care Team Providers Care Beet Topper Name Role Phone Meme Steel MD Primary Care Provider [phone] Pcp, Pcp Primary Care Provider Unavailabl Guadalupe Bardales MD Primary Care Provider Sena Dominguez Unavailable [phone] Levy Barry MD Primary Care Provider Unavailab le Source Comments The information that you have received may contain highly confidential and/or federally protected health information. This information has been disclosed to you from records protected by [facility]. The law prohibits you from making [...] contact the sender immediately.[facility] ([facility]) Encounter Details Date Type Department Care Team (Late st Contact Info) Description 09/22/2014 Historical Note [facility] [employer] [facility] Devyn Vásquez MD [address] [place] [address] [phone] Social History Tobacco Use Types Packs/Day Years [...] - [facility] [address] [facility] [address] [place] [phone] Brenda Clay MD [address] [facility] [address] [place] [phone] 04/15/2026 10:00 AM EDT Office Visit [facility] [address] [place] [address] Sena Dominguez PA [address] [facility] [place] [address] documented as of this encounter Visit Diagnoses Not on filedocumented in this encounter Care Teams Beet Topper Relationship Specialty Start Date End Date Meme Steel MD [address] [place] [address] 105 [place] [address] PCP - General Pediatrics 06/05/18 04/25/22 No Pcp, Pcp PCP - General 06/08/22 07/19/22 Guadalupe Mcbride MD PCP - General Family Medicine 07/20/22 11/01/23 Sena Dominguez PA [address] [place] [address] [place] [address] PCP - BRADY Physician Life Insurance Salesperson 11/02/23 Levy Barry MD [address] [place] [address] [place] [address] PCP - General Family Medicine 12/20/23 documented as of this encounter
--- OUTSIDE RECORDS SUMMARY | 2025-08-08 14:41 | XMS_ITS | Encounter Summary ---
Author Organization [facility] work ([facility]) Address [address] [place] [address] Care Team Providers Care Sample Maker Name Role Phone Meme Steel MD Primary Care Provider [phone] Pcp, Pcp Primary Care Provider Unavailabl Guadalupe Bardales MD Primary Care Provider [phone] Sena Dominguez Unavailable [phone] Levy Barry MD Primary Care Provider Unavailab le Source Comments The information that you have received may contain highly confidential and/or federally protected health information. This information has been disclosed to you from records protected by [employer] [facility]. The law prohibits you from making [...] immediately.[facility] ([facility]) Encounter Details Date Type Department Care Team (Late st Contact Info) Description 01/04/2008 Historical Note [facility] [employer]ap System Devyn Vásquez MD [address] [place] [address] [phone] Social History Tobacco Use Types Packs/Day Years [...] CARRILLO - [facility] [address] [facility] [address] [place] [phone] Brenda Clay MD [address] [facility] [address] [place] [phone] 04/15/2026 10:00 AM EDT Office Visit [facility] at [facility] [address] [facility] [address] [place] [address] Sena Dominguez PA [address] [facility] [place] [address] documented as of this encounter Visit Diagnoses Not on filedocumented in this encounter Care Teams Sample Maker Relationship Specialty Start Date End Date Meme Steel MD [address] [place] [address] 105 [place] [address] PCP - General Pediatrics 06/05/18 04/25/22 No Pcp, Pcp PCP - General 06/08/22 07/19/22 Guadalupe Mcbride MD PCP - General Family Medicine 07/20/22 11/01/23 Sena Dominguez PA [address] [place] [address] [place] [address] PCP - BRADY Physician Featherer 11/02/23 Levy Barry MD [address] [place] [address] [place] [address] PCP - General Family Medicine 12/20/23 documented as of this encounter
--- OUTSIDE RECORDS SUMMARY | 2025-08-08 14:41 | XMS_ITS | Encounter Summary ---
Author Organization [facility] work ([facility]) Address [address] [place] [address] Care Team Providers Care Engine Lathe Set Up Operator Name Role Phone Meme Steel MD Primary Care Provider [phone] No Pcp, Pcp Primary Care Provider Unavailabl Guadalupe Bardales MD Primary Care Provider [phone] Sena Dominguez Unavailable [phone] Levy Barry MD Primary Care Provider Unavailab le Source Comments The information that you have received may contain highly confidential and/or federally protected health information. This information has been disclosed to you from records protected by [facility]. The law prohibits you [...] please contact the sender immediately.[facility] ([facility]) Encounter Details Date Type Department Care Team (Late st Contact Info) Description 01/04/2008 Historical Note [facility] [employer] System Devyn Vásquez MD [address] [place] [address] [phone] Social History Tobacco Use Types Packs/Day Years [...] LEATHA CARRILLO - [facility] [address] [facility] [address] [place] [phone] Brenda Clay MD [address] [facility] [address] [place] [phone] 04/15/2026 10:00 AM EDT Office Visit [facility]HA [facility] at [facility] [address] [facility] [address] [place] [address] Sena Dominguez PA [address] [facility] [place] [address] documented as of this encounter Visit Diagnoses Not on filedocumented in this encounter Care Teams Engine Lathe Set Up Operator Relationship Specialty Start Date End Date Meme Steel MD [address] [place] [address] 105 [place] [address] PCP - General Pediatrics 06/05/18 04/25/22 No Pcp, Pcp PCP - General 06/08/22 07/19/22 Guadalupe Mcbride MD PCP - General Family Medicine 07/20/22 11/01/23 Sena Dominguez PA [address] [place] [address] [place] [address] PCP - BRADY Physician Neurophysiological Technician 11/02/23 Levy Barry MD [address] [place] [address] [place] [address] PCP - General Family Medicine 12/20/23 documented as of this encounter
--- OUTSIDE RECORDS SUMMARY | 2025-08-08 14:41 | XMS_ITS | Encounter Summary ---
Author Organization [facility] work ([facility]) Address [address] [place] [address] Care Team Providers Care Automobile Mechanic Helper Name Role Phone Meme Steel MD Primary Care Provider No Pcp, Pcp Primary Care Provider Unavailabl Guadalupe Bardales MD Primary Care Provider [phone] Sena Dominguez Unavailable [phone] Levy Barry MD Primary Care Provider Unavailab le Source Comments The information that you have received may contain highly confidential and/or federally protected health information. This information has been disclosed to you from records protected by [facility]. The law prohibits you from [...] error, please contact the sender immediately.[facility] ([facility]) Encounter Details Date Type Department Care Team (Late st Contact Info) Description 11/25/2014 Historical Note [facility] [employer] System Devyn Vásquez MD [address] [place] [address] [phone] Social History Tobacco Use Types Packs/Day Years [...] CARRILLO - [facility] [address] [facility] [address] [place] [phone] Brenda Clay MD [address] [facility] [address] [place] [address] 04/15/2026 10:00 AM EDT Office Visit LEATHA [facility] at [facility] + [facility] [address] [facility] [address] [place] [address] Sena Dominguez PA [address] [facility] [place] [address] documented as of this encounter Visit Diagnoses Not on filedocumented in this encounter Care Teams Automobile Mechanic Helper Relationship Specialty Start Date End Date Meme Steel MD [address] [place] [address] 105 [place] [address] PCP - General Pediatrics 06/05/18 04/25/22 No Pcp, Pcp PCP - General 06/08/22 07/19/22 Guadalupe Mcbride MD PCP - General Family Medicine 07/20/22 11/01/23 Sena Dominguez PA [address] [place] [address] [place] [address] PCP - BRADY Physician Oil Rig Driller 11/02/23 Levy Barry MD [address] [place] [address] [place] [address] PCP - General Family Medicine 12/20/23 documented as of this encounter
--- OUTSIDE RECORDS SUMMARY | 2025-08-08 14:41 | XMS_ITS | Encounter Summary ---
Author Organization [facility] work ([facility]) Address [address] [place] [address] Care Team Providers Care Whale Fisherman Name Role Phone Meme Steel MD Primary Care Provider [phone] No Pcp, Pcp Primary Care Provider Unavailabl Guadalupe Bardales MD Primary Care Provider [phone] Sena Dominguez Unavailable [phone] Levy Barry MD Primary Care Provider Unavailab le Source Comments The information that you have received may contain highly confidential and/or federally protected health information. This information has been disclosed to you from records protected by [facility] [facility]. The law prohibits you from [...] the sender immediately.[facility] ([facility]) Encounter Details Date Type Department Care Team (Late st Contact Info) Description 06/06/2008 Historical Note [facility] St[employer] System Devyn Vásquez MD [address] [place] [address] [phone] Social History Tobacco Use Types Packs/Day Years [...] CARRILLO - [facility] [address] [facility] [address] [place] [phone] Brenda Clay MD [address] [facility] [address] [place] [address] 04/15/2026 10:00 AM EDT Office Visit [facility]HA [facility] at [facility] + [facility] [address] [facility] [address] [place] [address] Sena Dominguez PA [address] [facility] [place] [address] documented as of this encounter Visit Diagnoses Not on filedocumented in this encounter Care Teams Whale Fisherman Relationship Specialty Start Date End Date Meme Steel MD [address] [place] [address] 105 [place] [address] PCP - General Pediatrics 06/05/18 04/25/22 No Pcp, Pcp PCP - General 06/08/22 07/19/22 Guadalupe Mcbride MD PCP - General Family Medicine 07/20/22 11/01/23 Sena Dominguez PA [address] [place] [address] [place] [address] PCP - BRADY Physician Assessment Analyst 11/02/23 eLvy Barry MD [address] [place] [address] [place] [address] PCP - General Family Medicine 12/20/23 documented as of this encounter
--- OUTSIDE RECORDS SUMMARY | 2025-08-08 14:41 | XMS_ITS | Encounter Summary ---
Author Organization [facility] work ([facility]) Address [address] [place] [address] Care Team Providers Care Stonecutter Hand Name Role Phone Meme Steel MD Primary Care Provider [phone] Pcp, Pcp Primary Care Provider Unavailabl Guadalupe Bardales MD Primary Care Provider [phone] Sena Dominguez Unavailable Levy Barry MD Primary Care Provider Unavailab le Source Comments The information that you have received may contain highly confidential and/or federally protected health information. This information has been disclosed to you from records protected by [facility]. The law prohibits you from [...] contact the sender immediately.[facility] ([facility]) Encounter Details Date Type Department Care Team (Late st Contact Info) Description 06/16/2014 Historical Note [facility] Devyn Vásquez MD [address] [place] [address] [phone] Social History Tobacco Use Types Packs/Day Years [...] LEATHA CARRILLO - [facility] [address] [place] [phone] Brenda Clay MD [address] [facility] [address] [place] [phone] 04/15/2026 10:00 AM EDT Office Visit LEATHA [facility] at [facility] + [facility] [address] [place] [address] Sena Dominguez PA [address] [place] [address] documented as of this encounter Visit Diagnoses Not on filedocumented in this encounter Care Teams Stonecutter Hand Relationship Specialty Start Date End Date Meme Steel MD [address] [place] [address] [place] [address] PCP - General Pediatrics 06/05/18 04/25/22 No Pcp, Pcp PCP - General 06/08/22 07/19/22 Guadalupe Mcbride MD PCP - General Family Medicine 07/20/22 11/01/23 Sena Dominguez PA [address] [place] [address] [place] [address] PCP - BRADY Physician Hvac Service Technician 11/02/23 Levy Barry MD [address] [place] [address] [place] [address] PCP - General Family Medicine 12/20/23 documented as of this encounter
--- OUTSIDE RECORDS SUMMARY | 2025-08-08 14:41 | XMS_ITS | Encounter Summary ---
Author Organization [facility] work ([facility]) Address [address] [place] [address] Care Team Providers Care Technology Project Manager Name Role Phone Meme Steel MD Primary Care Provider [phone] Pcp, Pcp Primary Care Provider Unavailabl Guadalupe Bardales MD Primary Care Provider [phone] Sena Dominguez Unavailable [phone] Levy Barry MD Primary Care Provider Unavailab le Source Comments The information that you have received may contain highly confidential and/or federally protected health information. This information has been disclosed to you from records protected by [facility]. The law prohibits you from [...] please contact the sender immediately.[facility] ([facility]) Encounter Details Date Type Department Care Team (Late st Contact Info) Description 11/07/2014 Historical Note [facility] Devyn Vásquez MD [address] [place] [address] [phone] Social History Tobacco Use Types Packs/Day Years [...] [facility] at [facility] [address] [place] [phone] Brenda Clay MD [address] [facility] [address] [place] [phone] 04/15/2026 10:00 AM EDT Office Visit LEATHA [facility] at [facility] + [facility] [address] [place] [address] Sena Dominguez PA [address] [facility] [place] [address] documented as of this encounter Visit Diagnoses Not on filedocumented in this encounter Care Teams Technology Project Manager Relationship Specialty Start Date End Date Meme Steel MD [address] [place] [address] 105 [place] [address] PCP - General Pediatrics 06/05/18 04/25/22 No Pcp, Pcp PCP - General 06/08/22 07/19/22 Guadalupe Mcbride MD PCP - General Family Medicine 07/20/22 11/01/23 Sena Dominguez PA [address] [place] [address] [place] [address] PCP - BRADY Physician Instantizer Operator 11/02/23 Levy Barry MD [address] [place] [address] [place] [address] PCP - General Family Medicine 12/20/23 documented as of this encounter
--- OUTSIDE RECORDS SUMMARY | 2025-08-08 14:41 | XMS_ITS | Encounter Summary ---
Author Organization [facility] work ([facility]) Address [address] [place] [address] Care Team Providers Care Veterinarian Epidemiologist Name Role Phone Meme Steel MD Primary Care Provider [phone] Pcp, Pcp Primary Care Provider Unavailabl Guadalupe Bardales MD Primary Care Provider [phone] Sena Dominguez Unavailable [phone] Levy Barry MD Primary Care Provider Unavailab le Source Comments The information that you have received may contain highly confidential and/or federally protected health information. This information has been disclosed to you from records protected by [facility]. The [...] error, please contact the sender immediately.[facility] ([facility]) Encounter Details Date Type Department Care Team (Late st Contact Info) Description 08/21/2014 Historical Note [facility] Dveyn Vásquez MD [address] [place] [address] [phone] Social History Tobacco Use Types Packs/Day Years [...] - Located [facility] [address] [facility] [address] [place] [phone] Brenda Clay MD [address] [facility] [address] [place] [phone] 04/15/2026 10:00 AM EDT Office Visit LEATHA Primary [facility] at [facility] + [facility] [address] [place] [address] Sena Dominguez PA [address] [facility] [place] [address] documented as of this encounter Visit Diagnoses Not on filedocumented in this encounter Care Teams Veterinarian Epidemiologist Relationship Specialty Start Date End Date Meme Steel MD [address] [place] [address] 105 [place] [address] PCP - General Pediatrics 06/05/18 04/25/22 No Pcp, Pcp PCP - General 06/08/22 07/19/22 Guadalupe Mcbride MD PCP - General Family Medicine 07/20/22 11/01/23 Sena Dominguez PA [address] [place] [address] [place] [address] PCP - BRADY Physician Rod Finisher 11/02/23 Levy Barry MD [address] [place] [address] [place] [address] PCP - General Family Medicine 12/20/23 documented as of this encounter
--- OUTSIDE RECORDS SUMMARY | 2025-08-08 14:41 | XMS_ITS | Clinical Summary ---
Author Organization [facility] work ([facility]) Address [address] [place] [address] Care Team Providers Care Paediatrician Name Role Phone Sena Dominguez Unavailable [phone] Levy Barry MD Primary Care Provider Unavailab le Source Comments The information that you have received may contain highly confidential and/or federally protected health information. This information has been disclosed to you from records protected by [employer]. 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 1 01/31/2025 Alcohol and Drug Use [...] 10:00 AM EST Office Visit LEATHA CARRILLO [facility] [address] [facility] [address] [place] [phone] Brenda Clay MD [address] [place] [address] [address] [facility] [place] [phone] 04/15/2026 10:00 AM EDT Office Visit LEATHA Primary Care at [facility] + [address] [place] [address] Sena Dominguez PA [address] [facility] [place] [id number] Health Maintenance Due Date Last Done Comments [...] 11.0 - 15.0 % [facility] Platelet Count 329 140 - 400 Thousand/u L [facility] Mpv 10.1 7.5 - 12.5 fL [facility] Absolute Neutrophil Count 4,529 1,500 - 7,800 cells/uL [facility] Absolute Lymphocyte Count 2,116 850 - 3,900 cells/uL [facility] Absolute Monocyte Count 481 200 - 950 cells/uL [facility] Absolute Eosinophil Count 237 15 - 500 cells/uL [facility] Absolute Basophil Count 37 0 - 200 cells/uL [facility] Neutrophils Percent 61.2 % [facility] Total Lymphocytes Percent 28.6 % [facility] Monocytes Percent 6.5 % [facility] Eosinophil Percent 3.2 % [facility] Basophils Percent 0.5 % [facility] Blood specimen / Unknown 07/05/2025 10:34 AM EDT 07/05/2025 10:34 AM EDT Narrative [facility] - 07/05/2025 6:11 PM EDT 1 OF 2 REQS FASTING:YES FASTING: YES Holly VÁZQUEZ LAB BLOOD ORDERABLES Final R esult [facility] [address] [place] [address] [place] [phone] [facility] [place] [address] * (ABNORMAL) Lipid panel w/Reflex to Direct LDL (07/05/2025 10:34 AM EDT) Cholesterol 192 <200 mg/dL [facility] HDL Cholesterol 62 > OR = 50 mg/dL [facility] Triglycerides 81 <150 mg/dL [facility] LDL Cholesterol, Calculated 112(H) mg/dL (calc) [facility] Comment: Reference range: <100 Desirable range <100 mg/dL for primary prevention; <70 mg/dL for patients with CHD or diabetic patients with > or = 2 CHD risk factors. LDL-C is now calculated using the Madelyn calculation, which is a validated novel method providing better accuracy than the Friedewald equation in the estimation of LDL-C. Antoine SS et al. DEBORA. 2013;310(31): 6777-3181 (http://education.[employer]/faq/LGN434) Cholesterol/HDL Ratio 3.1 <5.0 (calc) [facility] NON-HDL CHOLESTEROL 130(H) <130 mg/dL (calc) [facility] Comment: For patients with diabetes plus [...] ORDERABLES Final R esult [facility] [address] [place] [address] [place] [address] [facility] [address] [place] [address] [place] [phone] * Comprehensive metabolic panel (07/05/2025 10:34 AM EDT) [facility] Glucose 80 65 - 99 mg/dL [facility] Comment: Fasting reference interval BUN 9 7 - 25 mg/dL [facility] Creatinine 0.64 0.50 - 0.96 mg/dL [facility] EGFR 129 > OR = 60 mL/min/1. 73m2 [facility] BUN/Creatinine Ratio SEE NOTE: 6 - 22 (calc) [facility] Comment: Not Reported: BUN and Creatinine are within reference range. Sodium 138 135 - 146 mmol/L [facility] Potassium 4.5 3.4 - 4.8 mmol/L [facility] Chloride 107 98 - 110 mmol/L [facility] CO2 23 20 - 32 mmol/L [facility] Calcium 9.0 8.6 - 10.2 mg/dL [facility] Total Protein 7.3 6.4 - 8.4 g/dL [facility] Albumin 3.8 3.6 - 5.1 g/dL [facility] Globulin, Calculated 3.5 2.2 - 4.0 g/dL (calc) [facility] ALBUMIN/GLOBULI N RATIO 1.1 0.9 - 2.3 (calc) [facility] Total Bilirubin 0.3 0.2 - 1.2 mg/dL [facility] Alkaline Phosphatase 91 31 - 125 U/L [facility] AST 20 10 - 30 U/L [facility] ALT 16 6 - 29 U/L [facility] Blood Blood specimen / Unknown 07/05/2025 10:34 AM EDT 07/05/2025 10:34 AM EDT Narrative [facility] - 07/05/2025 6:11 PM EDT 1 OF 2 REQS FASTING:YES FASTING: YES us Holly VÁZQUEZ LAB BLOOD ORDERABLES Final R esult [facility] [address] [place] [address] [place] [address] [facility] [address] [place] [address] [place] [phone] from Last 3 Months Insurance [facility] [place] [facility] [place] Care Teams Paediatrician Relationship Specialty Start Date End Date Sena Dominguez PA [address] [facility] [place] [phone] PCP - BRADY Physician Resource Protection Specialist 11/02/23 Levy Barry MD [address] [facility] [place] [address] PCP - General Family Medicine 12/20/23
--- OUTSIDE RECORDS SUMMARY | 2025-08-08 14:41 | XMS_ITS | Encounter Summary ---
Author Organization [facility] work ([facility]) Address [address] [place] [address] Care Team Providers Care Prepared Foods Associate Name Role Phone Meme Steel MD Primary Care Provider [phone] Pcp, Pcp Primary Care Provider Unavailabl Guadalupe Bardales MD Primary Care Provider [phone] Sena Dominguez Unavailable [phone] Levy Barry MD Primary Care Provider Unavailab le Source Comments The information that you have received may contain highly confidential and/or federally protected health information. This information has been disclosed to you from records protected by [facility] [place]. The law prohibits you from [...] error, please contact the sender immediately.[facility] ([facility]) Encounter Details Date Type Department Care Team (Late st Contact Info) Description 06/18/2014 Historical Note [facility] Devyn Vásquez MD [address] [place] [address] [phone] Social History Tobacco Use Types Packs/Day Years [...] CARRILLO - [facility] [address] [facility] [address] [place] [phone] Brenda Clay MD [address] [facility] [address] [place] [phone] 04/15/2026 10:00 AM EDT Office Visit LEATHA Primary Care at [facility] + [facility] [address] [place] [address] Sena Dominguez PA [address] [facility] [place] [address] documented as of this encounter Visit Diagnoses Not on filedocumented in this encounter Care Teams Prepared Foods Associate Relationship Specialty Start Date End Date Meme Steel MD [address] [place] [address] [place] [address] PCP - General Pediatrics 06/05/18 04/25/22 No Pcp, Pcp PCP - General 06/08/22 07/19/22 Guadalupe Mcbride MD PCP - General Family Medicine 07/20/22 11/01/23 Sena Dominguez PA [address] [place] [address] [place] [address] PCP - BRADY Physician Firer Retort 11/02/23 Levy Barry MD [address] [place] [address] [place] [address] PCP - General Family Medicine 12/20/23 documented as of this encounter
--- OUTSIDE RECORDS SUMMARY | 2025-08-08 14:41 | XMS_ITS | Encounter Summary ---
Author Organization [facility] work ([facility]) Address [address] [place] [address] Care Team Providers Care Technical Services Analyst Name Role Phone Meme Steel MD Primary Care Provider [phone] No Pcp, Pcp Primary Care Provider Unavailabl Guadalupe Bardales MD Primary Care Provider [phone] Sena Dominguez Unavailable [phone] Levy Barry MD Primary Care Provider Unavailab le Source Comments The information that you have received may contain highly confidential and/or federally protected health information. This information has been disclosed to you from records protected by [facility] [place]. The law prohibits you from making [...] please contact the sender immediately.[facility] ([facility]) Encounter Details Date Type Department Care Team (Late st Contact Info) Description 01/02/2014 Historical Note [facility] Devyn Vásquez MD [address] [place] [address] [phone] Social History Tobacco Use Types Packs/Day Years [...] CARRILLO - [facility] [address] [facility] [address] [place] [phone] Brenda Clay MD [address] [employer] [facility] [address] [place] [address] 04/15/2026 10:00 AM EDT Office Visit LEATHA Primary Care at [facility] + [facility] [address] [facility] [address] [place] [address] Sena Dominguez PA [address] [facility] [place] [address] documented as of this encounter Visit Diagnoses Not on filedocumented in this encounter Care Teams Technical Services Analyst Relationship Specialty Start Date End Date Meme Steel MD [address] [place] [address] 105 [place] [address] PCP - General Pediatrics 06/05/18 04/25/22 No Pcp, Pcp PCP - General 06/08/22 07/19/22 Guadalupe Mcbride MD PCP - General Family Medicine 07/20/22 11/01/23 Sena Dominguez PA [address] [place] [address] [place] [address] PCP - BRADY Physician Electrical Manufacturing Technician 11/02/23 Levy Barry MD [address] [place] [address] [place] [address] PCP - General Family Medicine 12/20/23 documented as of this encounter
--- OUTSIDE RECORDS SUMMARY | 2025-08-08 14:41 | XMS_ITS | Encounter Summary ---
Author Organization [facility] work ([facility]) Address [address] [place] [address] Care Team Providers Care General Production Worker Name Role Phone Meme Steel MD Primary Care Provider [phone] Pcp, Pcp Primary Care Provider Unavailabl Guadalupe Bardales MD Primary Care Provider [phone] Sena Dominguez Unavailable [phone] Levy Barry MD Primary Care Provider Unavailab le Source Comments The information that you have received may contain highly confidential and/or federally protected health information. This information has been disclosed to you from records protected by [facility]. The law prohibits you [...] the sender immediately.[facility] ([facility]) Encounter Details Date Type Department Care Team (Late st Contact Info) Description 08/12/2008 Historical Note [facility] [employer] [facility] Devyn Vásquez MD [address] [place] [address] [phone] Social History Tobacco Use Types Packs/Day Years [...] CARRILLO - [facility] [address] [facility] [address] [place] [phone] Brenda Clay MD [address] [facility] [address] [place] [phone] 04/15/2026 10:00 AM EDT Office Visit LEATHA Primary Care at [facility] + [facility] [address] [facility] [address] [place] [phone] Sena Dominguez PA [address] [facility] [place] [address] documented as of this encounter Visit Diagnoses Not on filedocumented in this encounter Care Teams General Production Worker Relationship Specialty Start Date End Date Meme Steel MD [address] [place] [address] 105 [place] [address] PCP - General Pediatrics 06/05/18 04/25/22 No Pcp, Pcp PCP - General 06/08/22 07/19/22 Guadalupe Mcbride MD PCP - General Family Medicine 07/20/22 11/01/23 Sena Dominguez PA [address] [place] [address] [place] [address] PCP - BRADY Physician Plan Consultant 11/02/23 Levy Barry MD [address] [place] [address] [place] [address] PCP - General Family Medicine 12/20/23 documented as of this encounter
--- OUTSIDE RECORDS SUMMARY | 2025-08-08 14:41 | XMS_ITS | Encounter Summary ---
Author Organization [facility] work ([facility]) Address [address] [place] [address] Care Team Providers Care Director Correctional Agency Name Role Phone Meme Steel MD Primary Care Provider [phone] Pcp, Pcp Primary Care Provider Unavailabl Guadalupe Bardales MD Primary Care Provider [phone] Sena Dominguez Unavailable [phone] Levy Brary MD Primary Care Provider Unavailab le Source Comments The information that you have received may contain highly confidential and/or federally protected health information. This information has been disclosed to you from records protected by [facility]. The law prohibits you from making [...] please contact the sender immediately.[facility] ([facility]) Encounter Details Date Type Department Care Team (Late st Contact Info) Description 09/22/2014 Historical Note [facility] [employer] System Devyn Vásquez MD [address] [place] [address] [phone] Social History Tobacco Use Types Packs/Day Years [...] LEATHA CARRILLO - [facility] at [facility] [address] [facility] [address] [place] [phone] Brenda Clay MD [address] [facility] [address] [place] [phone] 04/15/2026 10:00 AM EDT Office Visit [facility] + [facility] [address] [facility] [address] [place] [address] Sena Dominguez [place] [address] [facility] [place] [address] documented as of this encounter Visit Diagnoses Not on filedocumented in this encounter Care Teams Director Correctional Agency Relationship Specialty Start Date End Date Meme Steel MD [address] [place] [address] [place] [address] PCP - General Pediatrics 06/05/18 04/25/22 No Pcp, Pcp PCP - General 06/08/22 07/19/22 Guadalupe Mcbride MD PCP - General Family Medicine 07/20/22 11/01/23 Sena Dominguez PA [address] [place] [address] [place] [address] PCP - BRADY Physician Promotion Producer 11/02/23 Levy Barry MD [address] [place] [address] [place] [address] PCP - General Family Medicine 12/20/23 documented as of this encounter
--- OUTSIDE RECORDS SUMMARY | 2025-08-08 14:41 | XMS_ITS | Encounter Summary ---
Author Organization [facility] work ([facility]) Address [address] [place] [address] Care Team Providers Care Art Professor Name Role Phone Meme Steel MD Primary Care Provider [phone] Pcp, Pcp Primary Care Provider Unavailabl Guadalupe Bardales MD Primary Care Provider [phone] Sena Dominguez Unavailable [phone] Levy Barry MD Primary Care Provider Unavailab le Source Comments The information that you have received may contain highly confidential and/or federally protected health information. This information has been disclosed to you from records protected by [facility]. The law prohibits [...] contact the sender immediately.[facility] ([facility]) Encounter Details Date Type Department Care Team (Late st Contact Info) Description 08/21/2014 Historical Note [facility] Vigno System Devyn Vásquez MD [address] [place] [address] [phone] Social History Tobacco Use Types Packs/Day Years [...] CARRILLO - [facility] [address] [facility] [address] [place] [phone] Brenda Clay MD [address] [facility] [address] [place] [address] 04/15/2026 10:00 AM EDT Office Visit [facility] at [facility] + [facility] [address] [facility] [address] [place] [address] Sena Dominguez PA [address] [facility] [place] [address] documented as of this encounter Visit Diagnoses Not on filedocumented in this encounter Care Teams Art Professor Relationship Specialty Start Date End Date Meme Steel MD [address] [place] [address] 105 [place] [address] PCP - General Pediatrics 06/05/18 04/25/22 No Pcp, Pcp PCP - General 06/08/22 07/19/22 Guadalupe Mcbride MD PCP - General Family Medicine 07/20/22 11/01/23 Sena Dominguez PA [address] [place] [address] [place] [address] PCP - BRADY Physician Sighter 11/02/23 Levy Barry MD [address] [place] [address] [place] [address] PCP - General Family Medicine 12/20/23 documented as of this encounter
--- OUTSIDE RECORDS SUMMARY | 2025-08-08 14:41 | XMS_ITS | Encounter Summary ---
Author Organization [facility] work ([facility]) Address [address] [place] [address] Care Team Providers Care Groundhand Name Role Phone Meme Steel MD Primary Care Provider [phone] Pcp, Pcp Primary Care Provider Unavailabl Guadalupe Bardales MD Primary Care Provider [phone] Sena Dominguez Unavailable [phone] Levy Barry MD Primary Care Provider Unavailab le Source Comments The information that you have received may contain highly confidential and/or federally protected health information. This information has been disclosed to you from records protected by [facility]. The law prohibits you from [...] contact the sender immediately.[facility] ([facility]) Encounter Details Date Type Department Care Team (Late st Contact Info) Description 01/04/2008 Historical Note [facility] [employer] System Devyn Vásquez MD [address] [place] [address] [phone] Social History Tobacco Use Types Packs/Day Years [...] - [facility] [address] [facility] [address] [place] [phone] Brenda Clay MD [address] [facility] [address] [place] [phone] 04/15/2026 10:00 AM EDT Office Visit [facility]HA [facility] at [facility] + [facility] [address] [facility] [address] [place] [address] Sena Dominguez PA [address] [facility] [place] [address] documented as of this encounter Visit Diagnoses Not on filedocumented in this encounter Care Teams Groundhand Relationship Specialty Start Date End Date Meme Steel MD [address] [place] [address] 105 [place] [address] PCP - General Pediatrics 06/05/18 04/25/22 No Pcp, Pcp PCP - General 06/08/22 07/19/22 Guadalupe Mcbride MD PCP - General Family Medicine 07/20/22 11/01/23 Sena Dominguez PA [address] [place] [address] [place] [address] PCP - BRADY Physician Management Technician 11/02/23 Levy Barry MD [address] [place] [address] [place] [address] PCP - General Family Medicine 12/20/23 documented as of this encounter
--- OUTSIDE RECORDS SUMMARY | 2025-08-08 14:41 | XMS_ITS | Encounter Summary ---
Author Organization [facility] work ([facility]) Address [address] [place] [address] Care Team Providers Care Linderman Operator Name Role Phone Meme Steel MD Primary Care Provider [phone] Pcp, Pcp Primary Care Provider Unavailabl Guadalupe Bardales MD Primary Care Provider [phone] Sena Dominguez Unavailable [phone] Levy Barry MD Primary Care Provider Unavailab le Source Comments The information that you have received may contain highly confidential and/or federally protected health information. This information has been disclosed to you from records protected by [facility]. The law prohibits [...] please contact the sender immediately.[facility] ([facility]) Encounter Details Date Type Department Care Team (Late st Contact Info) Description 01/04/2008 Historical Note [facility] Invenias System Devyn Vásquez MD [address] [place] [address] [phone] Social History Tobacco Use Types Packs/Day Years [...] LEATHA CARRILLO - [facility] [address] [facility] [address] [place] [phone] Brenda Clay MD [address] [facility] [address] [place] [address] 04/15/2026 10:00 AM EDT Office Visit LEATHA [facility] at [facility] + [facility] [address] [facility] [address] [place] [address] Sena Dominguez PA [address] [facility] [place] [address] documented as of this encounter Visit Diagnoses Not on filedocumented in this encounter Care Teams Linderman Operator Relationship Specialty Start Date End Date Meme Steel MD [address] [place] [address] 105 [place] [address] PCP - General Pediatrics 06/05/18 04/25/22 No Pcp, Pcp PCP - General 06/08/22 07/19/22 Guadalupe Mcbride MD PCP - General Family Medicine 07/20/22 11/01/23 Sena Dominguez PA [address] [place] [address] [place] [address] PCP - BRADY Physician Animal Sticker 11/02/23 Levy Barry MD [address] [place] [address] [place] [address] PCP - General Family Medicine 12/20/23 documented as of this encounter
--- OUTSIDE RECORDS SUMMARY | 2025-08-08 14:41 | XMS_ITS | Encounter Summary ---
Author Organization [facility] work ([facility] Address [address] [place] [address] Care Team Providers Care Internetworking Technician Name Role Phone Meme Steel MD Primary Care Provider [phone] Pcp, Pcp Primary Care Provider Unavailabl Guadalupe Bardales MD Primary Care Provider [phone] Sena Dominguez Unavailable [phone] Levy Barry MD Primary Care Provider Unavailab le Source Comments The information that you have received may contain highly confidential and/or federally protected health information. This information has been disclosed to you from records protected by [facility]. The law prohibits you [...] the sender immediately.[facility] ([facility] Encounter Details Date Type Department Care Team (Late st Contact Info) Description 02/18/2014 Historical Note [facility] [employer] System Devyn Vásquez MD [address] [place] [address] [phone] Social History Tobacco Use Types Packs/Day Years [...] LEATHA CARRILLO - [facility] [address] [facility] [address] [place] [phone] Brenda Clay MD [address] [facility] [address] [place] [address] 04/15/2026 10:00 AM EDT Office Visit LEATHA [facility] at [facility] + [facility] [address] [facility] [address] [place] [address] Sena Dominguez PA [address] [facility] [place] [address] documented as of this encounter Visit Diagnoses Not on filedocumented in this encounter Care Teams Internetworking Technician Relationship Specialty Start Date End Date Meme Steel MD [address] [place] [address] 105 [place] [address] PCP - General Pediatrics 06/05/18 04/25/22 No Pcp, Pcp PCP - General 06/08/22 07/19/22 Guadalupe Mcbride MD PCP - General Family Medicine 07/20/22 11/01/23 Sena Dominguez PA [address] [place] [address] [place] [address] PCP - BRADY Physician Resolution Specialist 11/02/23 Levy Barry MD [address] [place] [address] [place] [address] PCP - General Family Medicine 12/20/23 documented as of this encounter
--- OUTSIDE RECORDS SUMMARY | 2025-08-08 14:41 | XMS_ITS | Encounter Summary ---
Author Organization [facility] work ([facility]) Address [address] [place] [address] Care Team Providers Care Latin Dancer Name Role Phone Meme Steel MD Primary Care Provider [phone] Pcp, Pcp Primary Care Provider Unavailabl Guadalupe Bardales MD Primary Care Provider [phone] Sena Dominguez Unavailable [phone] Levy Barry MD Primary Care Provider Unavailab le Source Comments The information that you have received may contain highly confidential and/or federally protected health information. This information has been disclosed to you from records protected by [facility]. The law prohibits you [...] the sender immediately.[facility] ([facility]) Encounter Details Date Type Department Care Team (Late st Contact Info) Description 11/07/2014 Historical Note [facility] [employer] System Devyn Vásquez MD [address] [place] [address] [phone] Social History Tobacco Use Types Packs/Day Years [...] LEATHA CARRILLO - [facility] [address] [facility] [address] [place] [phone] Brenda Clay MD [address] [facility] [address] [place] [address] 04/15/2026 10:00 AM EDT Office Visit [facility] + [facility] [address] [facility] [address] [place] [address] Sena Dominguez PA [address] [facility] [place] [address] documented as of this encounter Visit Diagnoses Not on filedocumented in this encounter Care Teams Latin Dancer Relationship Specialty Start Date End Date Meme Steel MD [address] [place] [address] 105 [place] [address] PCP - General Pediatrics 06/05/18 04/25/22 No Pcp, Pcp PCP - General 06/08/22 07/19/22 Guadalupe Mcbride MD PCP - General Family Medicine 07/20/22 11/01/23 Sena Dominguez PA [address] [place] [address] [place] [address] PCP - BRADY Physician Transportation Dispatcher 11/02/23 Levy Barry MD [address] [place] [address] [place] [address] PCP - General Family Medicine 12/20/23 documented as of this encounter
--- OUTSIDE RECORDS SUMMARY | 2025-08-08 14:41 | XMS_ITS | Encounter Summary ---
Author Organization [facility] work ([facility]) Address [address] [place] [address] Care Team Providers Care Hydrologic Modeler Name Role Phone Meme Steel MD Primary Care Provider [phone] Pcp, Pcp Primary Care Provider Unavailabl Guadalupe Bardales MD Primary Care Provider [phone] Sena Dominguez Unavailable [phone] Levy Barry MD Primary Care Provider Unavailab le Source Comments The information that you have received may contain highly confidential and/or federally protected health information. This information has been disclosed to you from records protected by [facility]. The law prohibits you [...] error, please contact the sender immediately.[facility] ([facility]) Encounter Details Date Type Department Care Team (Late st Contact Info) Description 01/01/2008 Historical Note [facility] [employer] System Devyn Vásquez MD [address] [place] [address] [phone] Social History Tobacco Use Types Packs/Day Years [...] CARRILLO - [facility] [address] [facility] [address] [place] [phone] Brenda Clay MD [address] [facility] [address] [place] [address] 04/15/2026 10:00 AM EDT Office Visit LEATHA [facility] at [facility] + [facility] [address] [facility] [address] [place] [address] Sena Dominguez PA [address] [facility] [place] [address] documented as of this encounter Visit Diagnoses Not on filedocumented in this encounter Care Teams Hydrologic Modeler Relationship Specialty Start Date End Date Meme Steel MD [address] [place] [address] 105 [place] [address] PCP - General Pediatrics 06/05/18 04/25/22 No Pcp, Pcp PCP - General 06/08/22 07/19/22 Guadalupe Mcbride MD PCP - General Family Medicine 07/20/22 11/01/23 Sena Dominguez PA [address] [place] [address] [place] [address] PCP - BRADY Physician Central Control Room Operator 11/02/23 Levy Barry MD [address] [place] [address] [place] [address] PCP - General Family Medicine 12/20/23 documented as of this encounter
--- OUTSIDE RECORDS SUMMARY | 2025-08-08 14:41 | XMS_ITS | Encounter Summary ---
Author Organization [facility] work ([facility]) Address [address] [place] [address] Care Team Providers Care Precision Lens Polisher Name Role Phone Meme Steel MD Primary Care Provider No Pcp, Pcp Primary Care Provider Unavailabl Guadalupe Bardales MD Primary Care Provider [phone] Sena Dominguez Unavailable [phone] Levy Barry MD Primary Care Provider Unavailab le Source Comments The information that you have received may contain highly confidential and/or federally protected health information. This information has been disclosed to you from records protected by [facility]. The law prohibits you [...] contact the sender immediately.[facility] ([facility]) Encounter Details Date Type Department Care Team (Late st Contact Info) Description 12/27/2007 Historical Note [facility] [employer] System Devyn Vásquez MD [address] [place] [address] [phone] Social History Tobacco Use Types Packs/Day Years [...] - [facility] [address] [facility] [address] [place] [phone] Brenda Clay MD [address] [facility] [address] [place] [address] 04/15/2026 10:00 AM EDT Office Visit LEATHA [facility] at [facility] + [facility] [address] [facility] [address] [place] [address] Sena Dominguez PA [address] [facility] [place] [address] documented as of this encounter Visit Diagnoses Not on filedocumented in this encounter Care Teams Precision Lens Polisher Relationship Specialty Start Date End Date Meme Steel MD [address] [place] [address] [place] [address] PCP - General Pediatrics 06/05/18 04/25/22 No Pcp, Pcp PCP - General 06/08/22 07/19/22 Guadalupe Mcbride MD PCP - General Family Medicine 07/20/22 11/01/23 Sena Dominguez PA [address] [place] [address] [place] [address] PCP - BRADY Physician Watermelon Harvesting Supervisor 11/02/23 Levy Barry MD [address] [place] [address] [place] [address] PCP - General Family Medicine 12/20/23 documented as of this encounter
--- OUTSIDE RECORDS SUMMARY | 2025-08-08 14:41 | XMS_ITS | Encounter Summary ---
Author Organization [facility] work ([facility]) Address [address] [place] [address] Care Team Providers Care First Coat Operator Name Role Phone Meme Steel MD Primary Care Provider [phone] Pcp, Pcp Primary Care Provider Unavailabl Guadalupe Bardales MD Primary Care Provider [phone] Sena Dominguez Unavailable [phone] Levy Barry MD Primary Care Provider Unavailab le Source Comments The information that you have received may contain highly confidential and/or federally protected health information. This information has been disclosed to you from records protected by [facility]. The law prohibits you from making [...] please contact the sender immediately.[facility] ([facility]) Encounter Details Date Type Department Care Team (Late st Contact Info) Description 06/14/2008 Historical Note [facility] [employer] System Devyn Vásquez MD [address] [place] [address] [phone] Social History Tobacco Use Types Packs/Day Years [...] CARRILLO - [facility] [address] [facility] [address] [place] [phone] Brenda Clay MD [address] [facility] [address] [place] [address] 04/15/2026 10:00 AM EDT Office Visit LE[facility]HA [facility] at [facility] [address] [facility] [address] [place] [address] Sena Dominguez PA [address] [facility] [place] [address] documented as of this encounter Visit Diagnoses Not on filedocumented in this encounter Care Teams First Coat Operator Relationship Specialty Start Date End Date Meme Steel MD [address] [place] [address] 105 [place] [address] PCP - General Pediatrics 06/05/18 04/25/22 No Pcp, Pcp PCP - General 06/08/22 07/19/22 Guadalupe Mcbride MD PCP - General Family Medicine 07/20/22 11/01/23 Sena Dominguez PA [address] [place] [address] [place] [address] PCP - BRADY Physician Paralegal Assistant 11/02/23 Levy Barry MD [address] [place] [address] [place] [address] PCP - General Family Medicine 12/20/23 documented as of this encounter
--- OUTSIDE RECORDS SUMMARY | 2025-08-08 14:41 | XMS_ITS | Encounter Summary ---
Author Organization [facility] work ([facility]) Address [address] [place] [address] Care Team Providers Care Comparator Operator Name Role Phone Meme Steel MD Primary Care Provider [phone] No Pcp, Pcp Primary Care Provider Unavailabl Guadalupe Bardales MD Primary Care Provider [phone] Sena Dominguez Unavailable [phone] Levy Barry MD Primary Care Provider Unavailab le Source Comments The information that you have received may contain highly confidential and/or federally protected health information. This information has been disclosed to you from records protected by [facility]. The law prohibits you from making [...] immediately.[facility] ([facility]) Encounter Details Date Type Department Care Team (Late st Contact Info) Description 06/16/2008 Historical Note [facility] [employer] System Devyn Vásquez MD [address] [place] [address] [phone] Social History Tobacco Use Types Packs/Day Years [...] CARRILLO - [facility] [address] [facility] [address] [place] [phone] Brenda Clay MD [address] [facility] [address] [place] [address] 04/15/2026 10:00 AM EDT Office Visit LE[facility]HA [facility] at [facility] + [facility] [address] [facility] [address] [place] [address] Sena Dominguez PA [address] [facility] [place] [address] documented as of this encounter Visit Diagnoses Not on filedocumented in this encounter Care Teams Comparator Operator Relationship Specialty Start Date End Date Meme Steel MD [address] [place] [address] 105 [place] [address] PCP - General Pediatrics 06/05/18 04/25/22 No Pcp, Pcp PCP - General 06/08/22 07/19/22 Guadalupe Mcbride MD PCP - General Family Medicine 07/20/22 11/01/23 Sena Dominguez PA [address] [place] [address] [place] [address] PCP - BRADY Physician Real Estate Accountant 11/02/23 Levy Barry MD [address] [place] [address] [place] [address] PCP - General Family Medicine 12/20/23 documented as of this encounter
--- OUTSIDE RECORDS SUMMARY | 2025-08-08 14:41 | XMS_ITS | Encounter Summary ---
Author Organization [facility] work ([facility]) Address [address] [place] [address] Care Team Providers Care Beam Press Operator Name Role Phone Meme Steel MD Primary Care Provider [phone] No Pcp, Pcp Primary Care Provider Unavailabl Guadalupe Bardales MD Primary Care Provider [phone] Sena Dominguez Unavailable [phone] Levy Barry MD Primary Care Provider Unavailab le Source Comments The information that you have received may contain highly confidential and/or federally protected health information. This information has been disclosed to you from records protected by [facility]. The law prohibits you [...] error, please contact the sender immediately.[facility] ([facility]) Encounter Details Date Type Department Care Team (Late st Contact Info) Description 04/08/2009 Historical Note [facility] Open-Xchange System Devyn Vásquez MD [address] [place] [address] [phone] Social History Tobacco Use Types Packs/Day Years [...] CARRILLO - [facility] [address] [facility] [address] [place] [phone] Brenda Clay MD [address] [facility] [address] [place] [address] 04/15/2026 10:00 AM EDT Office Visit [facility] [address] [place] [address] Sena Dominguez PA [address] [place] [address] documented as of this encounter Visit Diagnoses Not on filedocumented in this encounter Care Teams Beam Press Operator Relationship Specialty Start Date End Date Meme Steel MD [address] [place] [address] [place] [address] PCP - General Pediatrics 06/05/18 04/25/22 No Pcp, Pcp PCP - General 06/08/22 07/19/22 Guadalupe Mcbride MD PCP - General Family Medicine 07/20/22 11/01/23 Sena Dominguez PA [address] [place] [address] [place] [address] PCP - BRADY Physician Dietary Aide 11/02/23 Levy Barry MD [address] [place] [address] [place] [address] PCP - General Family Medicine 12/20/23 documented as of this encounter
--- OUTSIDE RECORDS SUMMARY | 2025-08-08 14:41 | XMS_ITS | Encounter Summary ---
Author Organization [facility] work ([facility]) Address [address] [place] [address] Care Team Providers Care Nanoscience Technician Name Role Phone Meme Steel MD Primary Care Provider [phone] Pcp, Pcp Primary Care Provider Unavailabl Guadalupe Bardales MD Primary Care Provider [phone] Sena Dominguez Unavailable [phone] Levy Barry MD Primary Care Provider Unavailab le Source Comments The information that you have received may contain highly confidential and/or federally protected health information. This information has been disclosed to you from records protected by [facility]. The law prohibits you from [...] please contact the sender immediately.[facility] ([facility]) Encounter Details Date Type Department Care Team (Late st Contact Info) Description 06/18/2014 Historical Note [facility] [employer] System Devyn Vásquez MD [address] [place] [address] [phone] Social History Tobacco Use Types Packs/Day Years [...] CARRILLO - [facility] [address] [facility] [address] [place] [phone] Brenda Clay MD [address] [facility] [address] [place] [address] 04/15/2026 10:00 AM EDT Office Visit [facility] [address] [facility] [address] [facility] [address] [place] [address] Sena Dominguez PA [address] [facility] [place] [address] documented as of this encounter Visit Diagnoses Not on filedocumented in this encounter Care Teams Nanoscience Technician Relationship Specialty Start Date End Date Meme Steel MD [address] [place] [address] 105 [place] [address] PCP - General Pediatrics 06/05/18 04/25/22 No Pcp, Pcp PCP - General 06/08/22 07/19/22 Guadalupe Mcbride MD PCP - General Family Medicine 07/20/22 11/01/23 Sena Dominguez PA [address] [place] [address] [place] [address] PCP - BRADY Physician Jet Dyeing Machine Operator 11/02/23 Levy Barry MD [address] [place] [address] [place] [address] PCP - General Family Medicine 12/20/23 documented as of this encounter
--- OUTSIDE RECORDS SUMMARY | 2025-08-08 14:41 | XMS_ITS | Encounter Summary ---
Author Organization [facility] work ([facility]) Address [address] [place] [address] Care Team Providers Care Handle Finisher Name Role Phone Meme Steel MD Primary Care Provider [phone] Pcp, Pcp Primary Care Provider Unavailabl Guadalupe Bardales MD Primary Care Provider [phone] Sena Dominguez Unavailable [phone] Levy Barry MD Primary Care Provider Unavailab le Source Comments The information that you have received may contain highly confidential and/or federally protected health information. This information has been disclosed to you from records protected by [facility]. The law prohibits you [...] contact the sender immediately.[facility] ([facility]) Encounter Details Date Type Department Care Team (Late st Contact Info) Description 11/26/2007 Historical Note [facility] ClearFlow System Devyn Vásquez MD [address] [place] [address] [phone] Social History Tobacco Use Types Packs/Day Years [...] Visit LEATHA CARRILLO - [facility] [address] [place] [phone] Brenda Clay MD [address] [facility] [address] [place] [address] 04/15/2026 10:00 AM EDT Office Visit [facility] at [facility] [address] [facility] [address] [place] [address] Sena Dominguez PA [address] [facility] [place] [address] documented as of this encounter Visit Diagnoses Not on filedocumented in this encounter Care Teams Handle Finisher Relationship Specialty Start Date End Date Meme Steel MD [address] [place] [address] 105 [place] [address] PCP - General Pediatrics 06/05/18 04/25/22 No Pcp, Pcp PCP - General 06/08/22 07/19/22 Guadalupe Mcbride MD PCP - General Family Medicine 07/20/22 11/01/23 Sena Dominguez PA [address] [place] [address] [place] [address] PCP - BRADY Physician Clinical Leader 11/02/23 Levy Barry MD [address] [place] [address] [place] [address] PCP - General Family Medicine 12/20/23 documented as of this encounter
--- OUTSIDE RECORDS SUMMARY | 2025-08-08 14:41 | XMS_ITS | Encounter Summary ---
Author Organization [facility] work ([facility]) Address [address] [place] [address] Care Team Providers Care Test And Balance Engineer Name Role Phone Meme Steel MD Primary Care Provider [phone] Pcp, Pcp Primary Care Provider Unavailabl Guadalupe Bardales MD Primary Care Provider [phone] Sena Dominguez Unavailable [phone] Levy Barry MD Primary Care Provider Unavailab le Source Comments The information that you have received may contain highly confidential and/or federally protected health information. This information has been disclosed to you from records protected by [facility]. The law prohibits you [...] contact the sender immediately.[facility] ([facility]) Encounter Details Date Type Department Care Team (Late st Contact Info) Description 06/16/2014 Historical Note [facility] [employer] System Devyn Vásquez MD [address] [place] [address] [phone] Social History Tobacco Use Types Packs/Day Years [...] - [facility] [address] [facility] [address] [place] [phone] Brenda Clay MD [address] [facility] [address] [place] [address] 04/15/2026 10:00 AM EDT Office Visit [facility] at [facility] + [facility] [address] [place] [address] Sena Dominguez PA [address] [facility] [place] [address] documented as of this encounter Visit Diagnoses Not on filedocumented in this encounter Care Teams Test And Balance Engineer Relationship Specialty Start Date End Date Meme Steel MD [address] [place] [address] 105 [place] [address] PCP - General Pediatrics 06/05/18 04/25/22 No Pcp, Pcp PCP - General 06/08/22 07/19/22 Guadalupe Mcbride MD PCP - General Family Medicine 07/20/22 11/01/23 Sena Dominguez PA [address] [place] [address] [place] [address] PCP - BRADY Physician Electroformer 11/02/23 Levy Barry MD [address] [place] [address] [place] [address] PCP - General Family Medicine 12/20/23 documented as of this encounter
--- OUTSIDE RECORDS SUMMARY | 2025-08-08 14:41 | XMS_ITS | Encounter Summary ---
Author Organization [facility] work ([facility]) Address [address] [place] [address] Care Team Providers Care Game Designer Name Role Phone Meme Steel MD Primary Care Provider [phone] Pcp, Pcp Primary Care Provider Unavailabl Guadalupe Bardales MD Primary Care Provider [phone] Sena Dominguez Unavailable [phone] Levy Barry MD Primary Care Provider Unavailab le Source Comments The information that you have received may contain highly confidential and/or federally protected health information. This information has been disclosed to you from records protected by [facility]. The law prohibits you from [...] please contact the sender immediately.[facility] ([facility]) Encounter Details Date Type Department Care Team (Late st Contact Info) Description 05/20/2014 Historical Note [facility] Endurance [employer] System Devyn Vásquez MD [address] [place] [address] [phone] Social History Tobacco Use Types Packs/Day Years [...] - [facility] [address] [facility] [address] [place] [phone] Brenda Clay MD [address] [facility] [address] [place] [address] 04/15/2026 10:00 AM EDT Office Visit [facility]HA [facility] at [facility] + [facility] [address] [facility] [address] [place] [address] Sena Dominguez PA [address] [facility] [place] [address] documented as of this encounter Visit Diagnoses Not on filedocumented in this encounter Care Teams Game Designer Relationship Specialty Start Date End Date Meme Steel MD [address] [place] [address] 105 [place] [address] PCP - General Pediatrics 06/05/18 04/25/22 No Pcp, Pcp PCP - General 06/08/22 07/19/22 Guadalupe Mcbride MD PCP - General Family Medicine 07/20/22 11/01/23 Sena Dominguez PA [address] [place] [address] [place] [address] PCP - BRADY Physician Sider 11/02/23 Levy Barry MD [address] [place] [address] [place] [address] PCP - General Family Medicine 12/20/23 documented as of this encounter
--- OUTSIDE RECORDS SUMMARY | 2025-08-08 14:41 | XMS_ITS | Encounter Summary ---
Author Organization [facility] work ([facility]) Address [address] [place] [address] Care Team Providers Care Geospatial Imagery Intelligence Analyst Name Role Phone Meme Steel MD Primary Care Provider [phone] Pcp, Pcp Primary Care Provider Unavailabl Guadalupe Bardales MD Primary Care Provider [phone] Sena Dominguez Unavailable [phone] Levy Barry MD Primary Care Provider Unavailab le Source Comments The information that you have received may contain highly confidential and/or federally protected health information. This information has been disclosed to you from records protected by [facility]. The law prohibits you [...] error, please contact the sender immediately.[facility] ([facility]) Encounter Details Date Type Department Care Team (Late st Contact Info) Description 01/03/2008 Historical Note [facility] [employer] System Devyn Vásquez MD [address] [place] [address] [phone] Social History Tobacco Use Types Packs/Day Years [...] Visit LEATHA CARRILLO - [facility] [address] [facility] [address] [place] [phone] Brenda Clay MD [address] [facility] [address] [place] [address] 04/15/2026 10:00 AM EDT Office Visit [facility] [address] [facility] [address] [place] [address] Sena Dominguez PA [address] [facility] [place] [address] documented as of this encounter Visit Diagnoses Not on filedocumented in this encounter Care Teams Geospatial Imagery Intelligence Analyst Relationship Specialty Start Date End Date Meme Steel MD [address] [place] [address] 105 [place] [address] PCP - General Pediatrics 06/05/18 04/25/22 No Pcp, Pcp PCP - General 06/08/22 07/19/22 Guadalupe Mcbride MD PCP - General Family Medicine 07/20/22 11/01/23 Sena Dominguez PA [address] [place] [address] [place] [address] PCP - BRADY Physician Assistant Producer 11/02/23 Levy Barry MD [address] [place] [address] [place] [address] PCP - General Family Medicine 12/20/23 documented as of this encounter
--- OUTSIDE RECORDS SUMMARY | 2025-08-08 14:41 | XMS_ITS | Encounter Summary ---
Author Organization [facility] work ([facility]) Address [address] [place] [address] Care Team Providers Care Laborer Tan House Name Role Phone Meme Steel MD Primary Care Provider [phone] Pcp, Pcp Primary Care Provider Unavailabl Guadalupe Bardales MD Primary Care Provider [phone] Sena Dominguez Unavailable [phone] Levy Barry MD Primary Care Provider Unavailab le Source Comments The information that you have received may contain highly confidential and/or federally protected health information. This information has been disclosed to you from records protected by [facility]. The law prohibits you [...] contact the sender immediately.[facility] ([facility]) Encounter Details Date Type Department Care Team (Late st Contact Info) Description 10/02/2007 Historical Note [facility] [employer] System Devyn Vásquez MD [address] [place] [address] [phone] Social History Tobacco Use Types Packs/Day Years [...] LEATHA CARRILLO - [facility] [address] [facility] [address] [place] [phone] Brenda Clay MD [address] [facility] [address] [place] [phone] 04/15/2026 10:00 AM EDT Office Visit [facility]HA [facility] at [facility] [address] [facility] [address] [place] [address] Sena Dominguez PA [address] [facility] [place] [address] documented as of this encounter Visit Diagnoses Not on filedocumented in this encounter Care Teams Laborer Tan House Relationship Specialty Start Date End Date Meme Steel MD [address] [place] [address] 105 [place] [address] PCP - General Pediatrics 06/05/18 04/25/22 No Pcp, Pcp PCP - General 06/08/22 07/19/22 Guadalupe Mcbride MD PCP - General Family Medicine 07/20/22 11/01/23 Sena Dominguez PA [address] [place] [address] [place] [address] PCP - BRADY Physician Metal Buildings Assembler 11/02/23 Levy Barry MD [address] [place] [address] [place] [address] PCP - General Family Medicine 12/20/23 documented as of this encounter
--- OUTSIDE RECORDS SUMMARY | 2025-08-08 14:41 | XMS_ITS | Encounter Summary ---
Author Organization [facility] work ([facility]) Address [address] [place] [address] Care Team Providers Care Hand Coke Drawer Name Role Phone Meme Steel MD Primary Care Provider [phone] Pcp, Pcp Primary Care Provider Unavailabl Guadalupe Bardales MD Primary Care Provider [phone] Sena Dominguez Unavailable [phone] Levy Barry MD Primary Care Provider Unavailab le Source Comments The information that you have received may contain highly confidential and/or federally protected health information. This information has been disclosed to you from records protected by [facility]. The law prohibits you from [...] the sender immediately.[facility] ([facility]) Encounter Details Date Type Department Care Team (Late st Contact Info) Description 06/06/2008 Historical Note [facility] [employer] System Devyn Vásquez MD [address] [place] [address] [phone] Social History Tobacco Use Types Packs/Day Years [...] [facility] [address] [facility] [address] [place] [phone] Brenda Clay MD [address] [facility] [address] [place] [address] 04/15/2026 10:00 AM EDT Office Visit [facility]HA [facility] [address] [facility] [address] [place] [address] Sena Dominguez PA [address] [facility] [place] [address] documented as of this encounter Visit Diagnoses Not on filedocumented in this encounter Care Teams Hand Coke Drawer Relationship Specialty Start Date End Date Meme Steel MD [address] [place] [address] 105 [place] [address] PCP - General Pediatrics 06/05/18 04/25/22 No Pcp, Pcp PCP - General 06/08/22 07/19/22 Guadalupe Mcbride MD PCP - General Family Medicine 07/20/22 11/01/23 Sena Dominguez PA [address] [place] [address] [place] [address] PCP - BRADY Physician Supervisor Screen Printing 11/02/23 Levy Barry MD [address] [place] [address] [place] [address] PCP - General Family Medicine 12/20/23 documented as of this encounter
--- OUTSIDE RECORDS SUMMARY | 2025-08-08 14:41 | XMS_ITS | Encounter Summary ---
Author Organization [facility] work ([facility]) Address [address] [place] [address] Care Team Providers Care Yarn Inspector Name Role Phone Meme Steel MD Primary Care Provider [phone] Pcp, Pcp Primary Care Provider Unavailabl Guadalupe Bardales MD Primary Care Provider [phone] Sena Dominguez Unavailable [phone] Levy Barry MD Primary Care Provider Unavailab le Source Comments The information that you have received may contain highly confidential and/or federally protected health information. This information has been disclosed to you from records protected by [facility]. The law prohibits you from [...] contact the sender immediately.[facility] ([facility]) Encounter Details Date Type Department Care Team (Late st Contact Info) Description 11/26/2007 Historical Note [facility] Ch[employer] System Devyn Vásquez MD [address] [place] [address] [phone] Social History Tobacco Use Types Packs/Day Years [...] Visit LEATHA CARRILLO - [facility] [address] [facility] [address] [place] [phone] Brenda Clay MD [address] [facility] [address] [place] [address] 04/15/2026 10:00 AM EDT Office Visit LE[facility]HA [facility] at [facility] [address] [facility] [address] [place] [address] Sena Dominguez PA [address] [facility] [place] [address] documented as of this encounter Visit Diagnoses Not on filedocumented in this encounter Care Teams Yarn Inspector Relationship Specialty Start Date End Date Meme Steel MD [address] [place] [address] 105 [place] [address] PCP - General Pediatrics 06/05/18 04/25/22 No Pcp, Pcp PCP - General 06/08/22 07/19/22 Guadalupe Mcbride MD PCP - General Family Medicine 07/20/22 11/01/23 Sena Dominguez PA [address] [place] [address] [place] [address] PCP - BRADY Physician Yard Conductor 11/02/23 Levy Barry MD [address] [place] [address] [place] [address] PCP - General Family Medicine 12/20/23 documented as of this encounter
--- OUTSIDE RECORDS SUMMARY | 2025-08-08 14:41 | XMS_ITS | Encounter Summary ---
Author Organization [facility] work ([facility]) Address [address] [place] [address] Care Team Providers Care Corset Maker Name Role Phone Meme Steel MD Primary Care Provider [phone] Pcp, Pcp Primary Care Provider Unavailabl Guadalupe Bardales MD Primary Care Provider [phone] Sena Dominguez Unavailable [phone] Levy Barry MD Primary Care Provider Unavailab le Source Comments The information that you have received may contain highly confidential and/or federally protected health information. This information has been disclosed to you from records protected by [facility]. The law prohibits you from [...] please contact the sender immediately.[facility] ([facility]) Encounter Details Date Type Department Care Team (Late st Contact Info) Description 10/02/2007 Historical Note [facility] [employer] Security System Devyn Vásquez MD [address] [place] [address] [phone] Social History Tobacco Use Types Packs/Day Years [...] CARRILLO - [facility] [address] [facility] [address] [place] [phone] Brenda Clay MD [address] [facility] [address] [place] [phone] 04/15/2026 10:00 AM EDT Office Visit [facility]HA [facility] + [facility] [address] [facility] [address] [place] [address] Sena Dominguez PA [address] [facility] [place] [address] documented as of this encounter Visit Diagnoses Not on filedocumented in this encounter Care Teams Corset Maker Relationship Specialty Start Date End Date Meme Steel MD [address] [place] [address] 105 [place] [address] PCP - General Pediatrics 06/05/18 04/25/22 No Pcp, Pcp PCP - General 06/08/22 07/19/22 Guadalupe Mcbride MD PCP - General Family Medicine 07/20/22 11/01/23 Sena Dominguez PA [address] [place] [address] [place] [address] PCP - BRADY Physician Light Fixture Servicer 11/02/23 Levy Barry MD [address] [place] [address] [place] [address] PCP - General Family Medicine 12/20/23 documented as of this encounter
--- OUTSIDE RECORDS SUMMARY | 2025-08-08 14:41 | XMS_ITS | Encounter Summary ---
Author Organization [facility] work ([facility]) Address [address] [place] [address] Care Team Providers Care Line Dancer Name Role Phone Sena Dominguez Unavailable [phone] Levy Barry MD Primary Care Provider Unavailab le Source Comments The information that you have received may contain highly confidential and/or federally protected health information. This information has been disclosed to you from records protected by [employer]. The law prohibits you from making any [...] the sender immediately.[facility] ([facility]) Encounter Details Date Type Department Care Team (Latest Contact Info) Description 07/07/2025 Results Follow-Up [facility] Primary Care at [facility] + [facility] [address] [place] [phone] Annel Jhaveri PA [address] [place] [phone] Comprehensive metabolic panel, CBC and differential, Lipid [...] (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 internet. 1 01/31/2025 Alcohol and Drug [...] Recorded In the past 12 months has [employer], gas, oil, or water [employer] threatened to shut off services in your home? No 01/31/2025 Comments No Sex and Gender Information Value Date Recorded Sex Assigned at Not on file Legal Sex Female 1:04 AM EDT Gender Identity Not on file Sexual Orientation Not on file documented as of this encounter Plan of Treatment Upcoming Encounters Date Type Department Care Team ([facility] Contact Info) Description 10/10/2025 10:00 AM EST Office Visit LEATHA CARRILLO [facility] [address] [place] [address] [address] [place] [phone] Brenda Clay MD [address] [place] [address] [place] [phone] 04/15/2026 10:00 AM EDT Office Visit LEATHA Primary Care at [facility] + [address] [place] [phone] Sena Dominguez PA [address] [place] [address] [place] [address] documented as of this encounter Goals Goal [...] documented as of this encounter Care Teams Line Dancer Relationship Specialty Start Date End Date Sena Dominguez PA [address] [place] [address] [place] [address] PCP - BRADY Physician Numerical Analysis Group Manager 11/02/23 Levy Barry MD [address] [place] [address] [place] [address] PCP - General Family Medicine 12/20/23 documented as of this encounter
--- OUTSIDE RECORDS SUMMARY | 2025-08-08 14:41 | XMS_ITS | Encounter Summary ---
Author Organization [facility] work ([facility]) Address [address] [place] [address] Care Team Providers Care Automotive Fuel Injection Servicer Name Role Phone Meme Steel MD Primary Care Provider [phone] Pcp, Pcp Primary Care Provider Unavailabl Guadalupe Bardales MD Primary Care Provider [phone] Sena Dominguez Unavailable [phone] Levy Barry MD Primary Care Provider Unavailab le Source Comments The information that you have received may contain highly confidential and/or federally protected health information. This information has been disclosed to you from records protected by [employer]. The law prohibits you [...] Contact Info) Description 12/27/2007 Historical Note [facility] [employer] [employer] [facility] Devyn Vásquez MD [address] [place] [address] [phone] Social History Tobacco Use Types Packs/Day Years [...] [facility] [address] [place] [phone] Brenda Clay MD [address] [facility] [address] [place] [phone] 04/15/2026 10:00 AM EDT Office Visit LEATHA Primary Care at [facility] + [facility] [address] [place] [address] Sena Dominguez PA [address] [place] [address] documented as of this encounter Visit Diagnoses Not on filedocumented in this encounter Care Teams Automotive Fuel Injection Servicer Relationship Specialty Start Date End Date Meme Steel MD [address] [place] [address] [address] [place] [address] PCP - General Pediatrics 06/05/18 04/25/22 No Pcp, Pcp PCP - General 06/08/22 07/19/22 Guadalupe Mcbride MD PCP - General Family Medicine 07/20/22 11/01/23 Sena Dominguez PA [address] [place] [address] [place] [address] PCP - BRADY Physician Bioinformatics Software Engineer 11/02/23 Levy Barry MD [address] [place] [address] [place] [address] PCP - General Family Medicine 12/20/23 documented as of this encounter
--- OUTSIDE RECORDS SUMMARY | 2025-08-08 14:41 | XMS_ITS | Encounter Summary ---
Author Organization [facility] work ([facility]) Address [address] [place] [address] Care Team Providers Care Chemical Research Worker Name Role Phone Meme tSeel MD Primary Care Provider [phone] Pcp, Pcp Primary Care Provider Unavailabl Guadalupe Bardales MD Primary Care Provider [phone] Sena Dominguez Unavailable [phone] Levy Barry MD Primary Care Provider Unavailab le Source Comments The information that you have received may contain highly confidential and/or federally protected health information. This information has been disclosed to you from records protected by [facility]. The law prohibits you [...] the sender immediately.[facility] ([facility]) Encounter Details Date Type Department Care Team (Late st Contact Info) Description 05/20/2014 Historical Note [facility] [employer] System Devyn Vásquez MD [address] [place] [address] [phone] Social History Tobacco Use Types Packs/Day Years [...] LEATHA CARRILLO - [facility] [address] [place] [phone] Brenda Clay MD [address] [facility] [address] [place] [phone] 04/15/2026 10:00 AM EDT Office Visit LEATHA Primary [facility] at [facility] + [facility] [address] [place] [phone] eSna Dominguez PA [address] [place] [address] documented as of this encounter Visit Diagnoses Not on filedocumented in this encounter Care Teams Chemical Research Worker Relationship Specialty Start Date End Date Meme Steel MD [address] [place] [address] 105 [place] [address] PCP - General Pediatrics 06/05/18 04/25/22 No Pcp, Pcp PCP - General 06/08/22 07/19/22 Guadalupe Mcbride MD PCP - General Family Medicine 07/20/22 11/01/23 Sena Dominguez PA [address] [place] [address] [place] [address] PCP - BRADY Physician Actuarial Intern 11/02/23 Levy Barry MD [address] [place] [address] [place] [address] PCP - General Family Medicine 12/20/23 documented as of this encounter
--- OUTSIDE RECORDS SUMMARY | 2025-08-08 14:42 | XMS_ITS | Encounter Summary ---
Author Organization [facility] work ([facility]) Address [address] [place] [address] Care Team Providers Care Data Center Architect Name Role Phone Meme Steel MD Primary Care Provider No Pcp, Pcp Primary Care Provider Unavailabl Guadalupe Bardales MD Primary Care Provider [phone] Sena Dominguez Unavailable [phone] Levy Barry MD Primary Care Provider Unavailab le Source Comments The information that you have received may contain highly confidential and/or federally protected health information. This information has been disclosed to you from records protected by [facility]. The law prohibits you from [...] please contact the sender immediately.[facility] ([facility]) Encounter Details Date Type Department Care Team (Late st Contact Info) Description 01/14/2013 Historical Note [facility] [employer] System Devyn Vásquez MD [address] [place] [address] [phone] Social History Tobacco Use Types Packs/Day Years [...] CARRILLO - [facility] at [facility] [address] [place] [phone] Brenda Clay MD [address] [place] [phone] 04/15/2026 10:00 AM EDT Office Visit LEATHA Primary Care at [facility] + [facility] [address] [place] [phone] Sena Dominguez PA [address] [place] [address] documented as of this encounter Visit Diagnoses Not on filedocumented in this encounter Care Teams Data Center Architect Relationship Specialty Start Date End Date Meme Steel MD [address] [place] [address] 105 [place] [address] PCP - General Pediatrics 06/05/18 04/25/22 No Pcp, Pcp PCP - General 06/08/22 07/19/22 Guadalupe Mcbride MD PCP - General Family Medicine 07/20/22 11/01/23 Sena Dominguez PA [address] [place] [address] [place] [address] PCP - BRADY Physician Air Cargo Ground Crew Supervisor 11/02/23 Levy Barry MD [address] [place] [address] [place] [address] PCP - General Family Medicine 12/20/23 documented as of this encounter
--- OUTSIDE RECORDS SUMMARY | 2025-08-08 14:42 | XMS_ITS | Encounter Summary ---
Author Organization [facility] work ([facility]) Address [address] [place] [address] Care Team Providers Care Sap Portal Consultant Name Role Phone Meme Steel MD Primary Care Provider [phone] Pcp, Pcp Primary Care Provider Unavailabl Guadalupe Bardales MD Primary Care Provider Sena Dominguez Unavailable [phone] Levy Barry MD Primary Care Provider Unavailab le Source Comments The information that you have received may contain highly confidential and/or federally protected health information. This information has been disclosed to you from records protected by [facility]. The law prohibits you from [...] please contact the sender immediately.[facility] ([facility]) Encounter Details Date Type Department Care Team (Late st Contact Info) Description 11/21/2013 Historical Note [facility] [employer] System Devyn Vásquez MD [address] [place] [address] [phone] Social History Tobacco Use Types Packs/Day Years [...] Visit LEATHA CARRILLO - [facility] [address] [place] [phone] Brenda Clay MD [address] [facility] [address] [place] [address] 04/15/2026 10:00 AM EDT Office Visit LEATHA Primary Care at [facility] + [facility] [address] [place] [address] Sena Dominguez PA [address] [facility] [place] [address] documented as of this encounter Visit Diagnoses Not on filedocumented in this encounter Care Teams Sap Portal Consultant Relationship Specialty Start Date End Date Meme Steel MD [address] [place] [address] 105 [place] [address] PCP - General Pediatrics 06/05/18 04/25/22 No Pcp, Pcp PCP - General 06/08/22 07/19/22 Guadalupe Mcbride MD PCP - General Family Medicine 07/20/22 11/01/23 Sena Dominguez PA [address] [place] [address] [place] [address] PCP - BRADY Physician Car Washer 11/02/23 Levy Barry MD [address] [place] [address] [place] [address] PCP - General Family Medicine 12/20/23 documented as of this encounter
--- OUTSIDE RECORDS SUMMARY | 2025-08-08 14:42 | XMS_ITS | Encounter Summary ---
Author Organization [facility] work ([facility]) Address [address] [place] [address] Care Team Providers Care Turpentine Farmer Name Role Phone Meme Steel MD Primary Care Provider No Pcp, Pcp Primary Care Provider Unavailabl Guadalupe Bardales MD Primary Care Provider [phone] Sena Dominguez Unavailable [phone] Levy Barry MD Primary Care Provider Unavailab le Source Comments The information that you have received may contain highly confidential and/or federally protected health information. This information has been disclosed to you from records protected by [facility]. The law prohibits you [...] contact the sender immediately.[facility] ([facility]) Encounter Details Date Type Department Care Team (Late st Contact Info) Description 05/14/2013 Historical Note [facility] Smarkets System Devyn Vásquez MD [address] [place] [address] [phone] Social History Tobacco Use Types Packs/Day Years [...] LEATHA CARRILLO - [facility] [address] [place] [phone] Brenda Clay MD [address] [facility] [address] [place] [phone] 04/15/2026 10:00 AM EDT Office Visit LEATHA Primary Care at [facility] + [facility] [address] [place] [address] Sena Dominguez PA [address] [facility] [facility] [place] [address] documented as of this encounter Visit Diagnoses Not on filedocumented in this encounter Care Teams Turpentine Farmer Relationship Specialty Start Date End Date Meme Steel MD [address] [place] [address] 105 [place] [address] PCP - General Pediatrics 06/05/18 04/25/22 No Pcp, Pcp PCP - General 06/08/22 07/19/22 Guadalupe Mcbride MD PCP - General Family Medicine 07/20/22 11/01/23 Sena Dominguez PA [address] [place] [address] [place] [address] PCP - BRADY Physician Director Of Video Analytics 11/02/23 Levy Barry MD [address] [place] [address] [place] [address] PCP - General Family Medicine 12/20/23 documented as of this encounter
--- OUTSIDE RECORDS SUMMARY | 2025-08-08 14:42 | XMS_ITS | Encounter Summary ---
Author Organization [facility] work ([facility]) Address [address] [place] [address] Care Team Providers Care Compound Finisher Name Role Phone Meme Steel MD Primary Care Provider [phone] Pcp, Pcp Primary Care Provider Unavailabl Guadalupe Bardales MD Primary Care Provider [phone] Sena Dominguez Unavailable [phone] Levy Barry MD Primary Care Provider Unavailab le Source Comments The information that you have received may contain highly confidential and/or federally protected health information. This information has been disclosed to you from records protected by [employer] [facility]. The law prohibits you [...] please contact the sender immediately.[facility] ([facility]) Encounter Details Date Type Department Care Team (Late st Contact Info) Description 09/22/2014 Historical Note [facility] Sekoia System Devyn Vásquze MD [address] [place] [address] [phone] Social History Tobacco Use Types Packs/Day Years [...] CARRILLO - [facility] [address] [facility] [address] [place] [phone] Brenda Clay MD [address] [facility] [address] [place] [phone] 04/15/2026 10:00 AM EDT Office Visit LEATHA Primary Care at [facility] + [facility] [address] [facility] [address] [place] [address] Sena Dominguez PA [address] [facility] [place] [address] documented as of this encounter Visit Diagnoses Not on filedocumented in this encounter Care Teams Compound Finisher Relationship Specialty Start Date End Date Meme Steel MD [address] [place] [address] 105 [place] [address] PCP - General Pediatrics 06/05/18 04/25/22 No Pcp, Pcp PCP - General 06/08/22 07/19/22 Guadalupe Mcbride MD PCP - General Family Medicine 07/20/22 11/01/23 Sena Dominguez PA [address] [place] [address] [place] [address] PCP - BRADY Physician Product Marketing Intern 11/02/23 Levy Barry MD [address] [place] [address] [place] [address] PCP - General Family Medicine 12/20/23 documented as of this encounter
--- OUTSIDE RECORDS SUMMARY | 2025-08-08 14:42 | XMS_ITS | Encounter Summary ---
Author Organization [facility] work ([facility]) Address [address] [place] [address] Care Team Providers Care Daub Color Mixer Name Role Phone Meme Steel MD Primary Care Provider [phone] Pcp, Pcp Primary Care Provider Unavailabl Guadalupe Bardales MD Primary Care Provider [phone] Sena Dominguez Unavailable [phone] Levy Barry MD Primary Care Provider Unavailab le Source Comments The information that you have received may contain highly confidential and/or federally protected health information. This information has been disclosed to you from records protected by [facility]. The law prohibits you [...] please contact the sender immediately.[facility] ([facility]) Encounter Details Date Type Department Care Team (Late st Contact Info) Description 05/14/2013 Historical Note [facility] [employer] System Devyn Vásquez MD [address] [place] [address] [phone] Social History Tobacco Use Types Packs/Day Years [...] CARRILLO - [facility] [address] [facility] [address] [place] [phone] Brenda Clay MD [address] [facility] [address] [place] [phone] 04/15/2026 10:00 AM EDT Office Visit LEATHA Primary Care at [facility] + [facility] [address] [facility] [address] [place] [address] Sena Dominguez PA [address] [facility] [place] [address] documented as of this encounter Visit Diagnoses Not on filedocumented in this encounter Care Teams Daub Color Mixer Relationship Specialty Start Date End Date Meme Steel MD [address] [place] [address] 105 [place] [address] PCP - General Pediatrics 06/05/18 04/25/22 No Pcp, Pcp PCP - General 06/08/22 07/19/22 Guadalupe Mcbride MD PCP - General Family Medicine 07/20/22 11/01/23 Sena Dominguez PA [address] [place] [address] [place] [address] PCP - BRADY Physician Special Forces Warrant Officer 11/02/23 Levy Barry MD [address] [place] [address] [place] [address] PCP - General Family Medicine 12/20/23 documented as of this encounter
--- OUTSIDE RECORDS SUMMARY | 2025-08-08 14:42 | XMS_ITS | Encounter Summary ---
Author Organization [facility] work ([facility]) Address [address] [place] [address] Care Team Providers Care Slot Ambassador Name Role Phone Meme Steel MD Primary Care Provider [phone] Pcp, Pcp Primary Care Provider Unavailabl Guadalupe Bardales MD Primary Care Provider [phone] Sena Dominguez Unavailable [phone] Levy Barry MD Primary Care Provider Unavailab le Source Comments The information that you have received may contain highly confidential and/or federally protected health information. This information has been disclosed to you from records protected by [facility]. The law prohibits you from making [...] Contact Info) Description 11/21/2013 Historical Note [facility] [employer] System Devyn Vásquez MD [address] [place] [address] [phone] Social History Tobacco Use Types Packs/Day Years [...] Visit LEATHA CARRILLO - [facility] [address] [facility] [address] [place] [phone] Brenda Clay MD [address] [facility] [address] [place] [phone] 04/15/2026 10:00 AM EDT Office Visit LEATHA Primary Care at [facility] + [facility] [address] [place] [address] Sena Dominguez PA [address] [facility] [place] [address] documented as of this encounter Visit Diagnoses Not on filedocumented in this encounter Care Teams Slot Ambassador Relationship Specialty Start Date End Date Meme Steel MD [address] [place] [address] 105 [place] [address] PCP - General Pediatrics 06/05/18 04/25/22 No Pcp, Pcp PCP - General 06/08/22 07/19/22 Guadalupe Mcbride MD PCP - General Family Medicine 07/20/22 11/01/23 Sena Domniguez PA [address] [place] [address] [place] [address] PCP - BRADY Physician Sorting Machine Operator 11/02/23 Levy Barry MD [address] [place] [address] [place] [address] PCP - General Family Medicine 12/20/23 documented as of this encounter
--- OUTSIDE RECORDS SUMMARY | 2025-08-08 14:42 | XMS_ITS | Encounter Summary ---
Author Organization [facility] work ([facility]) Address [address] [place] [address] Care Team Providers Care Decorator Inspector Name Role Phone Meme Steel MD Primary Care Provider [phone] Pcp, Pcp Primary Care Provider Unavailabl Guadalupe Bardales MD Primary Care Provider [phone] Sena Dominguez Unavailable [phone] Levy Barry MD Primary Care Provider Unavailab le Source Comments The information that you have received may contain highly confidential and/or federally protected health information. This information has been disclosed to you from records protected by [facility]. The law prohibits you [...] please contact the sender immediately.[facility] ([facility]) Encounter Details Date Type Department Care Team (Late st Contact Info) Description 01/02/2014 Historical Note [facility] eco4cloud System Devyn Vásquez MD [address] [place] [address] [phone] Social History Tobacco Use Types Packs/Day Years [...] LEATHA CARRILLO - [facility] [address] [facility] [address] [place] [phone] Brenda Clay MD [address] [facility] [address] [place] [address] 04/15/2026 10:00 AM EDT Office Visit LEATHA Primary Care at [facility] + [facility] [address] [facility] [address] [place] [address] Sena Dominguez PA [address] [facility] [place] [address] documented as of this encounter Visit Diagnoses Not on filedocumented in this encounter Care Teams Decorator Inspector Relationship Specialty Start Date End Date Meme Steel MD [address] [place] [address] 105 [place] [address] PCP - General Pediatrics 06/05/18 04/25/22 No Pcp, Pcp PCP - General 06/08/22 07/19/22 Guadalupe Mcbride MD PCP - General Family Medicine 07/20/22 11/01/23 Sena Dominguez PA [address] [place] [address] [place] [address] PCP - BRADY Physician Professor Of Food Biochemistry 11/02/23 Levy Barry MD [address] [place] [address] [place] [address] PCP - General Family Medicine 12/20/23 documented as of this encounter
--- OUTSIDE RECORDS SUMMARY | 2025-08-08 14:42 | XMS_ITS | Encounter Summary ---
Author Organization [facility] work ([facility]) Address [address] [place] [address] Care Team Providers Care Operations And Maintenance Manager Name Role Phone Meme Steel MD Primary Care Provider [phone] Pcp, Pcp Primary Care Provider Unavailabl Guadalupe Bardales MD Primary Care Provider [phone] Sena Dominguez Unavailable [phone] Levy Barry MD Primary Care Provider Unavailab le Source Comments The information that you have received may contain highly confidential and/or federally protected health information. This information has been disclosed to you from records protected by [facility]. The [...] please contact the sender immediately.[facility] ([facility]) Encounter Details Date Type Department Care Team (Late st Contact Info) Description 11/21/2013 Historical Note [facility] [employer] [facility] Devyn Vásquez MD [address] [place] [address] [phone] Social History Tobacco Use Types Packs/Day Years [...] [facility] [address] [facility] [address] [place] [phone] Brenda Clay MD [address] [facility] [address] [place] [address] 04/15/2026 10:00 AM EDT Office Visit LE[facility]HA [facility] at [facility] + [facility] [address] [facility] [address] [place] [address] Sena Dominguez PA [address] [facility] [place] [address] documented as of this encounter Visit Diagnoses Not on filedocumented in this encounter Care Teams Operations And Maintenance Manager Relationship Specialty Start Date End Date Meme Steel MD [address] [place] [address] 105 [place] [address] PCP - General Pediatrics 06/05/18 04/25/22 No Pcp, Pcp PCP - General 06/08/22 07/19/22 Guadalupe Mcbride MD PCP - General Family Medicine 07/20/22 11/01/23 Sena Dominguez PA [address] [place] [address] [place] [address] PCP - BRADY Physician Waste/Materials Exchange Specialist 11/02/23 Levy Barry MD [address] [place] [address] [place] [address] PCP - General Family Medicine 12/20/23 documented as of this encounter
--- OUTSIDE RECORDS SUMMARY | 2025-08-08 14:42 | XMS_ITS | Encounter Summary ---
Author Organization [facility] work ([facility]) Address [address] [place] [address] Care Team Providers Care Copy Worker Name Role Phone Meme Steel MD Primary Care Provider [phone] Pcp, Pcp Primary Care Provider Unavailabl Guadalupe Bradales MD Primary Care Provider [phone] Sena Dominguez Unavailable [phone] Levy Barry MD Primary Care Provider Unavailab le Source Comments The information that you have received may contain highly confidential and/or federally protected health information. This information has been disclosed to you from records protected by [facility]. The law prohibits you [...] the sender immediately.[facility] ([facility]) Encounter Details Date Type Department Care Team (Late st Contact Info) Description 09/17/2013 Historical Note [facility] Devyn Vásquez MD [address] [place] [address] [phone] Social History Tobacco Use Types Packs/Day Years [...] Visit LEATHA CARRILLO - [facility] [address] [facility] [address] [place] [phone] Brenda Clay MD [address] [facility] [address] [place] [address] 04/15/2026 10:00 AM EDT Office Visit LEATHA [facility] at [facility] + [facility] [address] [facility] [address] [place] [address] Sena Dominguez PA [address] [facility] [place] [address] documented as of this encounter Visit Diagnoses Not on filedocumented in this encounter Care Teams Copy Worker Relationship Specialty Start Date End Date Meme Steel MD [address] [place] [address] 105 [place] [address] PCP - General Pediatrics 06/05/18 04/25/22 No Pcp, Pcp PCP - General 06/08/22 07/19/22 Guadalupe Mcbride MD PCP - General Family Medicine 07/20/22 11/01/23 Sena Dominguez PA [address] [place] [address] [place] [address] PCP - BRADY Physician Funding Specialist 11/02/23 Levy Barry MD [address] [place] [address] [place] [address] PCP - General Family Medicine 12/20/23 documented as of this encounter
--- OUTSIDE RECORDS SUMMARY | 2025-08-08 14:42 | XMS_ITS | Encounter Summary ---
Author Organization [facility] work ([facility]) Address [address] [place] [address] Care Team Providers Care Boiler Erector Name Role Phone Meme Steel MD Primary Care Provider [phone] Pcp, Pcp Primary Care Provider Unavailabl Guadalupe Bardales MD Primary Care Provider Sena Dominguez Unavailable [phone] Levy Barry MD Primary Care Provider Unavailab le Source Comments The information that you have received may contain highly confidential and/or federally protected health information. This information has been disclosed to you from records protected by [facility]. The law prohibits you [...] the sender immediately.[facility] ([facility]) Encounter Details Date Type Department Care Team (Late st Contact Info) Description 08/14/2013 Historical Note [facility] [employer] [facility] Devyn Vásquez MD [address] [place] [address] [phone] Social History Tobacco Use Types Packs/Day Years [...] Visit LEATHA CARRILLO - [facility] [address] [facility] [address] [place] [phone] Brenda Clay MD [address] [facility] [address] [place] [address] 04/15/2026 10:00 AM EDT Office Visit LEATHA [facility] + [facility] [address] [facility] [address] [place] [address] Sena Dominguez PA [address] [facility] [place] [address] documented as of this encounter Visit Diagnoses Not on filedocumented in this encounter Care Teams Boiler Erector Relationship Specialty Start Date End Date Meme Steel MD [address] [place] [address] 105 [place] [address] PCP - General Pediatrics 06/05/18 04/25/22 No Pcp, Pcp PCP - General 06/08/22 07/19/22 Guadalupe Mcbride MD PCP - General Family Medicine 07/20/22 11/01/23 Sena Dominguez PA [address] [place] [address] [place] [address] PCP - BRADY Physician Corporate Secretary 11/02/23 Levy Barry MD [address] [place] [address] [place] [address] PCP - General Family Medicine 12/20/23 documented as of this encounter
--- OUTSIDE RECORDS SUMMARY | 2025-08-08 14:42 | XMS_ITS | Encounter Summary ---
Author Organization [facility] work ([facility]) Address [address] [place] [address] Care Team Providers Care Eeg Tech Name Role Phone Meme Steel MD Primary Care Provider [phone] Pcp, Pcp Primary Care Provider Unavailabl Guadalupe Bardales MD Primary Care Provider Sena Dominguez Unavailable [phone] Levy Barry MD Primary Care Provider Unavailab le Source Comments The information that you have received may contain highly confidential and/or federally protected health information. This information has been disclosed to you from records protected by [employer]. The law prohibits you [...] please contact the sender immediately.[facility] ([facility]) Encounter Details Date Type Department Care Team (Late st Contact Info) Description 03/24/2008 Historical Note [facility] [employer] Devyn Vásquez MD [address] [place] [address] [phone] Social History Tobacco Use Types Packs/Day Years [...] LEATHA CARRILLO - [facility] [address] [facility] [address] [place] [phone] Brenda Clay MD [address] [facility] [address] [place] [address] 04/15/2026 10:00 AM EDT Office Visit LEATHA [facility] + [facility] [address] [facility] [address] [place] [address] Sena Dominguez PA [address] [facility] [place] [address] documented as of this encounter Visit Diagnoses Not on filedocumented in this encounter Care Teams Eeg Tech Relationship Specialty Start Date End Date Meme Steel MD [address] [place] [address] 105 [place] [address] PCP - General Pediatrics 06/05/18 04/25/22 No Pcp, Pcp PCP - General 06/08/22 07/19/22 Guadalupe Mcbride MD PCP - General Family Medicine 07/20/22 11/01/23 Sena Dominguez PA [address] [place] [address] [place] [address] PCP - BRADY Physician Press Feeder 11/02/23 Levy Barry MD [address] [place] [address] [place] [address] PCP - General Family Medicine 12/20/23 documented as of this encounter
--- OUTSIDE RECORDS SUMMARY | 2025-08-08 14:42 | XMS_ITS | Encounter Summary ---
Author Organization [facility] work ([facility]) Address [address] [place] [address] Care Team Providers Care Beater Engineer Name Role Phone Meme Steel MD Primary Care Provider [phone] Pcp, Pcp Primary Care Provider Unavailabl Guadalupe Bardales MD Primary Care Provider [phone] Sena Dominguez Unavailable [phone] Levy Barry MD Primary Care Provider Unavailab le Source Comments The information that you have received may contain highly confidential and/or federally protected health information. This information has been disclosed to you from records protected by [facility]. The law prohibits you from [...] error, please contact the sender immediately.[facility] ([facility]) Encounter Details Date Type Department Care Team (Late st Contact Info) Description 09/17/2013 Historical Note [facility] Devyn Vásquez MD [address] [place] [address] [phone] Social History Tobacco Use Types Packs/Day Years [...] Visit LEATHA CARRILLO - [facility] [address] [facility] [address] [place] [phone] Brenda Clay MD [address] [facility] [address] [place] [address] 04/15/2026 10:00 AM EDT Office Visit LEATHA [facility] at [facility] + [facility] [address] [facility] [address] [place] [address] Sena Dominguez PA [address] [facility] [place] [address] documented as of this encounter Visit Diagnoses Not on filedocumented in this encounter Care Teams Beater Engineer Relationship Specialty Start Date End Date Meme Steel MD [address] [place] [address] 105 [place] [address] PCP - General Pediatrics 06/05/18 04/25/22 No Pcp, Pcp PCP - General 06/08/22 07/19/22 Guadalupe Mcbride MD PCP - General Family Medicine 07/20/22 11/01/23 Sena Dominguez PA [address] [place] [address] [place] [address] PCP - BRADY Physician Commercial Construction Superintendent 11/02/23 Levy Barry MD [address] [place] [address] [place] [address] PCP - General Family Medicine 12/20/23 documented as of this encounter
--- OUTSIDE RECORDS SUMMARY | 2025-08-08 14:42 | XMS_ITS | Encounter Summary ---
Author Organization [facility] work ([facility]) Address [address] [place] [address] Care Team Providers Care Printing Specialist Name Role Phone Meme Steel MD Primary Care Provider [phone] Pcp, Pcp Primary Care Provider Unavailabl Guadalupe Bardales MD Primary Care Provider [phone] Sena Dominguez Unavailable [phone] Levy Barry MD Primary Care Provider Unavailab le Source Comments The information that you have received may contain highly confidential and/or federally protected health information. This information has been disclosed to you from records protected by [facility]. The law prohibits you from [...] please contact the sender immediately.[facility] ([facility]) Encounter Details Date Type Department Care Team (Late st Contact Info) Description 03/24/2008 Historical Note [facility] [employer] [facility] Devyn Vásquez MD [address] [place] [address] [phone] Social History Tobacco Use Types Packs/Day Years [...] CARRILLO - [facility] [address] [facility] [address] [place] [phone] Brenda Clay MD [address] [facility] [address] [place] [address] 04/15/2026 10:00 AM EDT Office Visit LEATHA [facility] at [facility] + [facility] [address] [facility] [address] [place] [address] Sena Dominguez PA [address] [facility] [place] [address] documented as of this encounter Visit Diagnoses Not on filedocumented in this encounter Care Teams Printing Specialist Relationship Specialty Start Date End Date Meme Steel MD [address] [place] [address] 105 [place] [address] PCP - General Pediatrics 06/05/18 04/25/22 No Pcp, Pcp PCP - General 06/08/22 07/19/22 Guadalupe Mcbride MD PCP - General Family Medicine 07/20/22 11/01/23 Sena Dominguez PA [address] [place] [address] [place] [address] PCP - BRADY Physician Assembler Deck And Hull 11/02/23 Levy Barry MD [address] [place] [address] [place] [address] PCP - General Family Medicine 12/20/23 documented as of this encounter
--- OUTSIDE RECORDS SUMMARY | 2025-08-08 14:42 | XMS_ITS | Encounter Summary ---
Author Organization [facility] work ([facility]) Address [address] [place] [address] Care Team Providers Care Shotweld Operator Name Role Phone Meme Steel MD Primary Care Provider [phone] Pcp, Pcp Primary Care Provider Unavailabl Guadalupe Bardales MD Primary Care Provider [phone] Sena Dominguez Unavailable [phone] Levy Barry MD Primary Care Provider Unavailab le Source Comments The information that you have received may contain highly confidential and/or federally protected health information. This information has been disclosed to you from records protected by [facility]. The law prohibits you [...] please contact the sender immediately.[facility] ([facility]) Encounter Details Date Type Department Care Team (Late st Contact Info) Description 11/21/2013 Historical Note [facility] [employer] System Devyn Vásquez MD [address] [place] [address] [phone] Social History Tobacco Use Types Packs/Day Years [...] CARRILLO - [facility] [address] [facility] [address] [place] [phone] Brenda Clay MD [address] [facility] [address] [place] [address] 04/15/2026 10:00 AM EDT Office Visit LEATHA [facility] at [facility] + [facility] [address] [facility] [address] [place] [address] Sena Dominguez PA [address] [facility] [place] [address] documented as of this encounter Visit Diagnoses Not on filedocumented in this encounter Care Teams Shotweld Operator Relationship Specialty Start Date End Date Meme Steel MD [address] [place] [address] 105 [place] [address] PCP - General Pediatrics 06/05/18 04/25/22 No Pcp, Pcp PCP - General 06/08/22 07/19/22 Guadalupe Mcbride MD PCP - General Family Medicine 07/20/22 11/01/23 Sena Dominguez PA [address] [place] [address] [place] [address] PCP - BRADY Physician Ribbon Lap Machine Tender 11/02/23 Levy Barry MD [address] [place] [address] [place] [address] PCP - General Family Medicine 12/20/23 documented as of this encounter
--- OUTSIDE RECORDS SUMMARY | 2025-08-08 14:42 | XMS_ITS | Encounter Summary ---
Author Organization [facility] work ([facility]) Address [address] [facility] [address] [facility] [address] [place] [address] Care Team Providers Care Floor Assembler Name Role Phone Meme Steel MD Primary Care Provider [phone] Pcp, Pcp Primary Care Provider Unavailabl Guadalupe Bardales MD Primary Care Provider [phone] Sena Dominguez Unavailable [phone] Levy Barry MD Primary Care Provider Unavailab le Source Comments The information that you have received may contain highly confidential and/or federally protected health information. This information has been disclosed to you from records protected by [facility]. The law prohibits you [...] contact the sender immediately.[facility] ([facility]) Encounter Details Date Type Department Care Team (Late st Contact Info) Description 08/13/2013 Historical Note [facility] [employer] [facility] Devyn Vásquez MD [address] [place] [address] [phone] Social History Tobacco Use Types Packs/Day Years [...] LEATHA CARRILLO - [facility] [address] [facility] [address] [place] [phone] Brenda Clay MD [address] [facility] [address] [place] [address] 04/15/2026 10:00 AM EDT Office Visit LEATHA [facility] + [facility] [address] [facility] [address] [place] [address] Sena Dominguez PA [address] [facility] [place] [address] documented as of this encounter Visit Diagnoses Not on filedocumented in this encounter Care Teams Floor Assembler Relationship Specialty Start Date End Date Meme Steel MD [address] [place] [address] 105 [place] [address] PCP - General Pediatrics 06/05/18 04/25/22 No Pcp, Pcp PCP - General 06/08/22 07/19/22 Guadalupe Mcbride MD PCP - General Family Medicine 07/20/22 11/01/23 Sena Dominguez PA [address] [place] [address] [place] [address] PCP - BRADY Physician Manager Packaging 11/02/23 Levy Barry MD [address] [place] [address] [place] [address] PCP - General Family Medicine 12/20/23 documented as of this encounter
--- OUTSIDE RECORDS SUMMARY | 2025-08-08 14:42 | XMS_ITS | Encounter Summary ---
Author Organization [facility] work ([facility]) Address [address] [place] [address] Care Team Providers Care Supervisor Wrapping Room Name Role Phone Meme Steel MD Primary Care Provider [phone] Pcp, Pcp Primary Care Provider Unavailabl Guadalupe Bardales MD Primary Care Provider [phone] Sena Dominguez Unavailable [phone] Levy Barry MD Primary Care Provider Unavailab le Source Comments The information that you have received may contain highly confidential and/or federally protected health information. This information has been disclosed to you from records protected by [employer] [facility]. The law prohibits you from [...] contact the sender immediately.[facility] ([facility]) Encounter Details Date Type Department Care Team (Late st Contact Info) Description 11/21/2013 Historical Note [facility] [employer] System Devyn Vásquez MD [address] [place] [address] [phone] Social History Tobacco Use Types Packs/Day Years [...] CARRILLO - [facility] [address] [facility] [address] [place] [phone] Brenda Clay MD [address] [facility] [address] [place] [address] 04/15/2026 10:00 AM EDT Office Visit LEATHA [facility] + [facility] [address] [facility] [address] [place] [address] Sena Dominguez PA [address] [facility] [place] [address] documented as of this encounter Visit Diagnoses Not on filedocumented in this encounter Care Teams Supervisor Wrapping Room Relationship Specialty Start Date End Date Meme Steel MD [address] [place] [address] 105 [place] [address] PCP - General Pediatrics 06/05/18 04/25/22 No Pcp, Pcp PCP - General 06/08/22 07/19/22 Guadalupe Mcbride MD PCP - General Family Medicine 07/20/22 11/01/23 Sena Dominguez PA [address] [place] [address] [place] [address] PCP - BRADY Physician Graduate Teaching Assistant 11/02/23 Levy Barry MD [address] [place] [address] [place] [address] PCP - General Family Medicine 12/20/23 documented as of this encounter
--- OUTSIDE RECORDS SUMMARY | 2025-08-08 14:42 | XMS_ITS | Encounter Summary ---
Author Organization [facility] work ([facility]) Address [address] [place] [address] Care Team Providers Care Correctional Officer Lieutenant Name Role Phone Meme Steel MD Primary Care Provider [phone] Pcp, Pcp Primary Care Provider Unavailabl Guadalupe Bardales MD Primary Care Provider [phone] Sena Dominguez Unavailable [phone] Levy Barry MD Primary Care Provider Unavailab le Source Comments The information that you have received may contain highly confidential and/or federally protected health information. This information has been disclosed to you from records protected by [employer] [facility]. The law prohibits you [...] error, please contact the sender immediately.[facility] ([facility]) Encounter Details Date Type Department Care Team (Late st Contact Info) Description 08/13/2013 Historical Note [facility] [employer] System Devyn Vásquez MD [address] [place] [address] [phone] Social History Tobacco Use Types Packs/Day Years [...] LEATHA CARRILLO - [facility] [address] [facility] [address] [place] [phone] Brenda Clay MD [address] [facility] [address] [place] [address] 04/15/2026 10:00 AM EDT Office Visit LEATHA [facility] at [facility] + [facility] [address] [facility] [address] [place] [address] Sena Dominguez PA [address] [facility] [place] [address] documented as of this encounter Visit Diagnoses Not on filedocumented in this encounter Care Teams Correctional Officer Lieutenant Relationship Specialty Start Date End Date Meme Steel MD [address] [place] [address] 105 [place] [address] PCP - General Pediatrics 06/05/18 04/25/22 No Pcp, Pcp PCP - General 06/08/22 07/19/22 Guadalupe Mcbride MD PCP - General Family Medicine 07/20/22 11/01/23 Sena Dominguez PA [address] [place] [address] [place] [address] PCP - BRADY Physician Direct Response Consultant 11/02/23 Levy Barry MD [address] [place] [address] [place] [address] PCP - General Family Medicine 12/20/23 documented as of this encounter
--- OUTSIDE RECORDS SUMMARY | 2025-08-08 14:42 | XMS_ITS | Encounter Summary ---
Author Organization [facility] work ([facility]) Address [address] [place] [address] Care Team Providers Care Grain Wafer Machine Operator Name Role Phone Meme Steel MD Primary Care Provider [phone] Pcp, Pcp Primary Care Provider Unavailabl Guadalupe Bardales MD Primary Care Provider [phone] Sena Dominguez Unavailable [phone] Levy Barry MD Primary Care Provider Unavailab le Source Comments The information that you have received may contain highly confidential and/or federally protected health information. This information has been disclosed to you from records protected by [facility]. The law prohibits you from [...] Contact Info) Description 01/24/2013 Historical Note [facility] [employer] System Devyn Vásquez MD [address] [place] [address] [phone] Social History Tobacco Use Types Packs/Day Years [...] LEATHA CARRILLO - [facility] at [facility] [address] [facility] [address] [place] [phone] Brenda Clay MD [address] [facility] [address] [place] [address] 04/15/2026 10:00 AM EDT Office Visit [facility]HA [facility] at [facility] + [facility] [address] [facility] [address] [place] [address] Sena Dominguez PA [address] [facility] [place] [address] documented as of this encounter Visit Diagnoses Not on filedocumented in this encounter Care Teams Grain Wafer Machine Operator Relationship Specialty Start Date End Date Meme Steel MD [address] [place] [address] [place] [address] PCP - General Pediatrics 06/05/18 04/25/22 No Pcp, Pcp PCP - General 06/08/22 07/19/22 Guadalupe Mcbride MD PCP - General Family Medicine 07/20/22 11/01/23 Sena Dominguez PA [address] [place] [address] [place] [address] PCP - BRADY Physician Circular Shear Operator 11/02/23 Levy Barry MD [address] [place] [address] [place] [address] PCP - General Family Medicine 12/20/23 documented as of this encounter
--- OUTSIDE RECORDS SUMMARY | 2025-08-08 14:42 | XMS_ITS | Encounter Summary ---
Author Organization [facility] work ([facility]) Address [address] [place] [address] Care Team Providers Care Squeegee Operator Name Role Phone Meme Steel MD Primary Care Provider [phone] Pcp, Pcp Primary Care Provider Unavailabl Gaudalupe Bardales MD Primary Care Provider [phone] Sena Dominguez Unavailable [phone] Levy Barry MD Primary Care Provider Unavailab le Source Comments The information that you have received may contain highly confidential and/or federally protected health information. This information has been disclosed to you from records protected by [facility]. The law prohibits you from making [...] the sender immediately.[facility] ([facility]) Encounter Details Date Type Department Care Team (Late st Contact Info) Description 01/02/2014 Historical Note [facility] [employer] System Devyn Vásquez MD [address] [place] [address] [phone] Social History Tobacco Use Types Packs/Day Years [...] - [facility] [address] [facility] [address] [place] [phone] Brenda Clay MD [address] [facility] [address] [place] [address] 04/15/2026 10:00 AM EDT Office Visit LE[facility]HA [facility] at [facility] + [facility] [address] [facility] [address] [place] [address] Sena Dominguez PA [address] [facility] [place] [address] documented as of this encounter Visit Diagnoses Not on filedocumented in this encounter Care Teams Squeegee Operator Relationship Specialty Start Date End Date Meme Steel MD [address] [place] [address] 105 [place] [address] PCP - General Pediatrics 06/05/18 04/25/22 No Pcp, Pcp PCP - General 06/08/22 07/19/22 Guadalupe Mcbride MD PCP - General Family Medicine 07/20/22 11/01/23 Sena Dominguez PA [address] [place] [address] [place] [address] PCP - BRADY Physician Livestock Broker 11/02/23 Levy Barry MD [address] [place] [address] [place] [address] PCP - General Family Medicine 12/20/23 documented as of this encounter
--- OUTSIDE RECORDS SUMMARY | 2025-08-08 14:42 | XMS_ITS | Encounter Summary ---
Author Organization [facility] work ([facility]) Address [address] [place] [address] Care Team Providers Care Decorator Street And Building Name Role Phone Meme Steel MD Primary Care Provider [phone] Pcp, Pcp Primary Care Provider Unavailabl Guadalupe Bardales MD Primary Care Provider [phone] Sena Dominguez Unavailable [phone] Levy Barry MD Primary Care Provider Unavailab le Source Comments The information that you have received may contain highly confidential and/or federally protected health information. This information has been disclosed to you from records protected by [facility]. The law prohibits you [...] contact the sender immediately.[facility] ([facility]) Encounter Details Date Type Department Care Team (Late st Contact Info) Description 01/14/2013 Historical Note [facility] [employer] System Devyn Vásquez MD [address] [place] [address] [phone] Social History Tobacco Use Types Packs/Day Years [...] LEATHA CARRILLO - [facility] [address] [facility] [address] [place] [phone] Brenda Clay MD [address] [facility] [address] [place] [phone] 04/15/2026 10:00 AM EDT Office Visit [facility]HA [facility] at [facility] [address] [facility] [address] [place] [address] Sena Dominguez PA [address] [facility] [place] [address] documented as of this encounter Visit Diagnoses Not on filedocumented in this encounter Care Teams Decorator Street And Building Relationship Specialty Start Date End Date Meme Steel MD [address] [place] [address] 105 [place] [address] PCP - General Pediatrics 06/05/18 04/25/22 No Pcp, Pcp PCP - General 06/08/22 07/19/22 Guadalupe Mcbride MD PCP - General Family Medicine 07/20/22 11/01/23 Sena Dominguez PA [address] [place] [address] [place] [address] PCP - BRADY Physician Culturist 11/02/23 Levy Barry MD [address] [place] [address] [place] [address] PCP - General Family Medicine 12/20/23 documented as of this encounter
--- OUTSIDE RECORDS SUMMARY | 2025-08-08 14:42 | XMS_ITS | Encounter Summary ---
Author Organization [facility] work ([facility]) Address [address] [place] [address] Care Team Providers Care Director Safety Name Role Phone Meme Steel MD Primary Care Provider [phone] Pcp, Pcp Primary Care Provider Unavailabl Guadalupe Bardales MD Primary Care Provider [phone] Sena Dominguez Unavailable [phone] Levy Barry MD Primary Care Provider Unavailab le Source Comments The information that you have received may contain highly confidential and/or federally protected health information. This information has been disclosed to you from records protected by [facility]. The law prohibits you [...] contact the sender immediately.[facility] ([facility]) Encounter Details Date Type Department Care Team (Late st Contact Info) Description 10/07/2014 Historical Note [facility] [employer] System Devyn Vásquez MD [address] [place] [address] [phone] Social History Tobacco Use Types Packs/Day Years [...] CARRILLO - [facility] [address] [facility] [address] [place] [phone] Brenda Clay MD [address] [facility] [address] [place] [address] 04/15/2026 10:00 AM EDT Office Visit LE[facility]HA [facility] at [facility] + [facility] [address] [facility] [address] [place] [address] Sena Dominguez PA [address] [facility] [place] [address] documented as of this encounter Visit Diagnoses Not on filedocumented in this encounter Care Teams Director Safety Relationship Specialty Start Date End Date Meme Steel MD [address] [place] [address] 105 [place] [address] PCP - General Pediatrics 06/05/18 04/25/22 No Pcp, Pcp PCP - General 06/08/22 07/19/22 Guadalupe Mcbride MD PCP - General Family Medicine 07/20/22 11/01/23 Sena Dominguez PA [address] [place] [address] [place] [address] PCP - BRADY Physician Technician 11/02/23 Levy Barry MD [address] [place] [address] [place] [address] PCP - General Family Medicine 12/20/23 documented as of this encounter
== END 2025-08-08 15:02 | disposition home or self-care (01) ==
LOC: HO.HOS 13:21
PROVIDERS: Visit Provider Physician Assistant
DX: S82.891A Other fracture of right lower leg, initial encounter for closed fracture (principal)
CPT/HCPCS: 29515; 99024

== ENCOUNTER → 2025-08-08 13:20 | Outpatient (BNVA) | payer OTHER, SELFPAY | PROVIDERS: Visit Provider Physician Assistant | DX: Z47.89 Encounter for other orthopedic aftercare (principal); S82.831D Other fracture of upper and lower end of right fibula, subsequent encounter for closed fracture with routine healing | CPT/HCPCS: 29515 ==

== ENCOUNTER 2025-08-14 13:42 | Outpatient (AMB) | payer OTHER, SELFPAY ==
--- NOTE | 2025-08-14 13:57 | MHC.OFFVIS ---
Intake Visit Reasons: PO RT ankle ORIF 08/05/25 NE Intake Note: Kimber is a 20 year old female who presents today for her first post operative appointment s/p Right Ankle ORIF 08/05/2025. Patient reports she is doing well, states her pain has been tolerable and is described more of a soreness vs pain. Allergies No Known Allergies Allergy (Verified 08/14/25 14:04) Medication List - Last Reconciled 08/14/25 by Nayeli Perez PA-C fexofenadine 180 mg PO DAILY fluoxetine 40 mg PO DAILY levothyroxine 25 mcg PO DAILY lorazepam 2 mg PO BEDTIME PRN norethindrone-e.estradiol-iron 1 mg-20 mcg (21)/75 mg (7) (Aurovela Fe 1-20 (28)) 1 tab PO DAILY oxycodone 5 mg PO Q4H PRN 7 days propranolol ER 60 mg PO DAILY HPI HPI PO RT ankle ORIF 08/05/25 NE: Details: 20-year-old female returns to the office today status post ORIF right ankle on 08/05/2025. She remains nonweightbearing has no concerns today. 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 Haily clean dry and intact. Sensation intact. Pulses present. Office Procedures Casting/Splints 72244-[id number] Leg Cast Application Procedure code (CPT) selection complete Assessment & Plan Assessment & Plan (1) Closed fracture of right distal fibula: Code(s): S82.831A - Other fracture of upper and lower end of right fibula, initial encounter for closed fracture Category: Medical Plan: [place] will remain intact for another week. She was placed in a short-leg cast and will remain nonweightbearing for another 5 weeks. She will come in to see me in 1 week with cast off and x-rays with potential staple removal. Sooner if needed. Coding Level of Care Code Global (03599) Diagnoses Closed fracture of right distal fibula S82.831A CPT Codes Casting - CPT: 21502-Thyxs Leg Cast Application ([id number])
--- OUTSIDE RECORDS SUMMARY | 2025-08-14 15:13 | XMS_ITS | Encounter Summary ---
Author Organization [facility] work ([facility]) Address [address] [place] [address] Care Team Providers Care Agile Tester Name Role Phone Meme Steel MD Primary Care Provider [phone] No Pcp, Pcp Primary Care Provider Unavailabl Guadalupe Bardales MD Primary Care Provider [phone] Sena Dominguez Unavailable [phone] Levy Barry MD Primary Care Provider Unavailab le Source Comments The information that you have received may contain highly confidential and/or federally protected health information. This information has been disclosed to you from records protected by [facility]. The law prohibits you [...] error, please contact the sender immediately.[facility] ([facility]) Encounter Details Date Type Department Care Team (Late st Contact Info) Description 2004 Historical Note [facility] [employer] [place] System Devyn Vásquez MD [address] [place] [address] [phone] Social History Tobacco Use Types Packs/Day Years [...] CARRILLO - [facility] [address] [facility] [address] [place] [phone] Brenda Clay MD [address] [facility] [address] [place] [address] 04/15/2026 10:00 AM EDT Office Visit [facility] + [facility] [address] [facility] [address] [place] [address] Sena Dominguez PA [address] [facility] [place] [address] documented as of this encounter Visit Diagnoses Not on filedocumented in this encounter Care Teams Agile Tester Relationship Specialty Start Date End Date Meme Steel MD [address] [place] [address] 105 [place] [address] PCP - General Pediatrics 06/05/18 04/25/22 No Pcp, Pcp PCP - General 06/08/22 07/19/22 Guadalupe Mcbride MD PCP - General Family Medicine 07/20/22 11/01/23 Sena Dominguez PA [address] [place] [address] [place] [address] PCP - BRADY Physician Presser Hand 11/02/23 Levy Barry MD [address] [place] [address] [place] [address] PCP - General Family Medicine 12/20/23 documented as of this encounter
--- OUTSIDE RECORDS SUMMARY | 2025-08-14 15:14 | XMS_ITS | Encounter Summary ---
Author Organization [facility] work ([facility]) Address [address] [place] [address] Care Team Providers Care Commissioned Defence Force Officer Name Role Phone Meme Steel MD Primary Care Provider [phone] Pcp, Pcp Primary Care Provider Unavailabl Guadalupe Bardales MD Primary Care Provider [phone] Sena Dominguez Unavailable [phone] Levy Barry MD Primary Care Provider Unavailab le Source Comments The information that you have received may contain highly confidential and/or federally protected health information. This information has been disclosed to you from records protected by [facility]. The law prohibits you [...] please contact the sender immediately.[facility] ([facility]) Encounter Details Date Type Department Care Team (Late st Contact Info) Description 2004 Historical Note [facility] [employer]de[employer] System Devyn Vásquez MD [address] [place] [phone] Social History Tobacco Use Types Packs/Day [...] Visit LEATHA CARRILLO - [facility] [address] [facility] [address] [place] [phone] Brenda Clay MD [address] [facility] [address] [place] [address] 04/15/2026 10:00 AM EDT Office Visit LEATHA [facility] at [facility] + [facility] [address] [facility] [address] [place] [address] Sena Dominguez PA [address] [facility] [place] [address] documented as of this encounter Visit Diagnoses Not on filedocumented in this encounter Care Teams Commissioned Defence Force Officer Relationship Specialty Start Date End Date Meme Steel MD [address] [place] [address] 105 [place] [address] PCP - General Pediatrics 06/05/18 04/25/22 No Pcp, Pcp PCP - General 06/08/22 07/19/22 Guadalupe Mcbride MD PCP - General Family Medicine 07/20/22 11/01/23 Sena Dominguez PA [address] [place] [address] [place] [address] PCP - BRADY Physician Shipping Clerk Packing 11/02/23 Levy Barry MD [address] [place] [address] [place] [address] PCP - General Family Medicine 12/20/23 documented as of this encounter
--- OUTSIDE RECORDS SUMMARY | 2025-08-14 15:14 | XMS_ITS | Encounter Summary ---
Author Organization [facility] work ([facility]) Address [address] [place] [address] Care Team Providers Care Surveillance Specialist Name Role Phone Meme Steel MD Primary Care Provider [phone] Pcp, Pcp Primary Care Provider Unavailabl Guadalupe Bardales MD Primary Care Provider [phone] Sena Dominguez Unavailable [phone] Levy Barry MD Primary Care Provider Unavailab le Source Comments The information that you have received may contain highly confidential and/or federally protected health information. This information has been disclosed to you from records protected by [facility]. The law prohibits you from [...] the sender immediately.[facility] ([facility]) Encounter Details Date Type Department Care Team (Late st Contact Info) Description 2004 Historical Note [facility] [employer] System Devyn Vásquez MD [address] [place] [address] [phone] Social History Tobacco Use Types Packs/Day Years [...] LEATHA CARRILLO - [facility] [address] [facility] [address] [place] [phone] Brenda lCay MD [address] [facility] [address] [place] [address] 04/15/2026 10:00 AM EDT Office Visit LEATHA [facility] at [facility] + [facility] [address] [facility] [address] [place] [address] Sena Dominguez PA [address] [facility] [place] [address] documented as of this encounter Visit Diagnoses Not on filedocumented in this encounter Care Teams Surveillance Specialist Relationship Specialty Start Date End Date Meme Steel MD [address] [place] [address] 105 [place] [address] PCP - General Pediatrics 06/05/18 04/25/22 No Pcp, Pcp PCP - General 06/08/22 07/19/22 Guadalupe Mcbride MD PCP - General Family Medicine 07/20/22 11/01/23 Sena Dominguez PA [address] [place] [address] [place] [address] PCP - BRADY Physician Associate Artistic Director 11/02/23 Levy Barry MD [address] [place] [address] [place] [address] PCP - General Family Medicine 12/20/23 documented as of this encounter
--- OUTSIDE RECORDS SUMMARY | 2025-08-14 15:14 | XMS_ITS | Encounter Summary ---
Author Organization [facility] work ([facility]) Address [address] [address] [place] [address] Care Team Providers Care Blocker Heated Metal Forms Name Role Phone Meme Steel MD Primary Care Provider [phone] Pcp, Pcp Primary Care Provider Unavailabl Guadalupe Bardales MD Primary Care Provider [phone] Sena Dominguez Unavailable [phone] Levy Barry MD Primary Care Provider Unavailab le Source Comments The information that you have received may contain highly confidential and/or federally protected health information. This information has been disclosed to you from records protected by [facility]. The law prohibits [...] please contact the sender immediately.[facility] ([facility]) Encounter Details Date Type Department Care Team (Late st Contact Info) Description 11/09/2006 Historical Note [facility] [employer] System Devyn Vásquez MD [address] [place] [address] [phone] Social History Tobacco Use Types Packs/Day Years [...] - [facility] at [facility] [address] [facility] [address] [place] [phone] Brenda Clay MD [address] [facility] [address] [place] [phone] 04/15/2026 10:00 AM EDT Office Visit LEATHA Primary [facility] at [facility] + [facility] [address] [facility] [address] [place] [address] Sena Dominguez PA [address] [facility] [place] [address] documented as of this encounter Visit Diagnoses Not on filedocumented in this encounter Care Teams Blocker Heated Metal Forms Relationship Specialty Start Date End Date Meme Steel MD [address] [place] [address] 105 [place] [address] PCP - General Pediatrics 06/05/18 04/25/22 No Pcp, Pcp PCP - General 06/08/22 07/19/22 Guadalupe Mcbride MD PCP - General Family Medicine 07/20/22 11/01/23 Sena Dominguez PA [address] [place] [address] [place] [address] PCP - BRADY Physician Office Inspector 11/02/23 Levy Barry MD [address] [place] [address] [place] [address] PCP - General Family Medicine 12/20/23 documented as of this encounter
--- OUTSIDE RECORDS SUMMARY | 2025-08-14 15:14 | XMS_ITS | Encounter Summary ---
Author Organization [facility] work ([facility]) Address [address] [place] [address] Care Team Providers Care Esol Teacher Assistant Name Role Phone Meme Steel MD Primary Care Provider [phone] Pcp, Pcp Primary Care Provider Unavailabl Guadalupe Bardales MD Primary Care Provider [phone] Sena Dominguez Unavailable [phone] Levy Barry MD Primary Care Provider Unavailab le Source Comments The information that you have received may contain highly confidential and/or federally protected health information. This information has been disclosed to you from records protected by [facility]. The law prohibits you [...] error, please contact the sender immediately[facility] ([facility]) Encounter Details Date Type Department Care Team (Late st Contact Info) Description 11/09/2006 Historical Note [facility] Devyn Vásquez MD [address] [place] [address] [phone] Social History Tobacco Use Types Packs/Day Years [...] LEATHA CARRILLO - [facility] [address] [facility] [address] [place] [phone] Brenda Clay MD [address] [facility] [address] [place] [address] 04/15/2026 10:00 AM EDT Office Visit [facility]HA [facility] [address] [facility] [address] [place] [address] Sena Dominguez PA [address] [facility] [place] [address] documented as of this encounter Visit Diagnoses Not on filedocumented in this encounter Care Teams Esol Teacher Assistant Relationship Specialty Start Date End Date Meme Steel MD [address] [place] [address] 105 [place] [address] PCP - General Pediatrics 06/05/18 04/25/22 No Pcp, Pcp PCP - General 06/08/22 07/19/22 Guadalupe Mcbride MD PCP - General Family Medicine 07/20/22 11/01/23 Sena Dominguez PA [address] [place] [address] [place] [address] PCP - BRADY Physician Transmission Specialist 11/02/23 Levy Barry MD [address] [place] [address] [place] [address] PCP - General Family Medicine 12/20/23 documented as of this encounter
--- OUTSIDE RECORDS SUMMARY | 2025-08-14 15:14 | XMS_ITS | Encounter Summary ---
Author Organization [facility] work ([facility]) Address [address] [place] [address] Care Team Providers Care Manager Dish Name Role Phone Meme Steel MD Primary Care Provider [phone] Pcp, Pcp Primary Care Provider Unavailabl Guadalupe Bardales MD Primary Care Provider [phone] Sena Dominguez Unavailable [phone] Levy Barry MD Primary Care Provider Unavailab le Source Comments The information that you have received may contain highly confidential and/or federally protected health information. This information has been disclosed to you from records protected by [facility]. The law prohibits you from making [...] please contact the sender immediately.[facility] ([facility]) Encounter Details Date Type Department Care Team (Late st Contact Info) Description 2004 Historical Note SVMG Servergy System Devyn Vásquez MD [address] [place] [address] [phone] Social History Tobacco Use Types Packs/Day Years [...] Visit LEATHA CARRILLO - [facility] [address] [facility] [address] [place] [phone] Brenda Clay MD [address] [facility] [address] [place] [address] 04/15/2026 10:00 AM EDT Office Visit [facility] [address] [facility] [address] [place] [address] Sena Dominguez PA [address] [facility] [place] [address] documented as of this encounter Visit Diagnoses Not on filedocumented in this encounter Care Teams Manager Dish Relationship Specialty Start Date End Date Meme Steel MD [address] [place] [address] [place] [address] PCP - General Pediatrics 06/05/18 04/25/22 No Pcp, Pcp PCP - General 06/08/22 07/19/22 Guadalupe Mcbride MD PCP - General Family Medicine 07/20/22 11/01/23 Sena Dominguez PA [address] [place] [address] [place] [address] PCP - BRADY Physician Electric Range Servicer 11/02/23 Levy Barry MD [address] [place] [address] [place] [address] PCP - General Family Medicine 12/20/23 documented as of this encounter
--- OUTSIDE RECORDS SUMMARY | 2025-08-14 15:14 | XMS_ITS | Encounter Summary ---
Author Organization [facility] work ([facility]) Address [address] [place] [address] Care Team Providers Care Insulator Cutter And Former Name Role Phone Meme Steel MD Primary Care Provider [phone] Pcp, Pcp Primary Care Provider Unavailabl Guadalupe Bardales MD Primary Care Provider [phone] Sena Dominguez Unavailable Levy Barry MD Primary Care Provider Unavailab le Source Comments The information that you have received may contain highly confidential and/or federally protected health information. This information has been disclosed to you from records protected by [facility]. The law prohibits you from [...] sender immediately.[facility] ([facility]) Encounter Details Date Type Department Care Team (Late st Contact Info) Description 2004 Historical Note SVMG Sparta Systems System Devyn Vásquez MD [address] [place] [address] [phone] Social History Tobacco Use Types Packs/Day Years [...] CARRILLO - [facility] [address] [facility] [address] [place] [phone] Brenda Clay MD [address] [facility] [address] [place] [address] 04/15/2026 10:00 AM EDT Office Visit LEATHA [facility] at [facility] [place] [facility] + [facility] [address] [facility] [address] [place] [address] Sena Dominguez PA [address] [facility] [place] [address] documented as of this encounter Visit Diagnoses Not on filedocumented in this encounter Care Teams Insulator Cutter And Former Relationship Specialty Start Date End Date Meme Steel MD [address] [place] [address] 105 [place] [address] PCP - General Pediatrics 06/05/18 04/25/22 No Pcp, Pcp PCP - General 06/08/22 07/19/22 Guadalupe Mcbride MD PCP - General Family Medicine 07/20/22 11/01/23 Sena Dominguez PA [address] [place] [address] [place] [address] PCP - BRADY Physician Drilling Foreman 11/02/23 Levy Barry MD [address] [place] [address] [place] [address] PCP - General Family Medicine 12/20/23 documented as of this encounter
--- OUTSIDE RECORDS SUMMARY | 2025-08-14 15:14 | XMS_ITS | Encounter Summary ---
Author Organization [facility] work ([facility]) Address [address] [place] [address] Care Team Providers Care Cost Estimator Name Role Phone Meme Steel MD Primary Care Provider [phone] Pcp, Pcp Primary Care Provider Unavailabl Guadalupe Bardales MD Primary Care Provider [phone] Sena Dominguez Unavailable [phone] Levy Barry MD Primary Care Provider Unavailab le Source Comments The information that you have received may contain highly confidential and/or federally protected health information. This information has been disclosed to you from records protected by [facility]. The law prohibits [...] contact the sender immediately.[facility] ([facility]) Encounter Details Date Type Department Care Team (Late st Contact Info) Description 2004 Historical Note SVMG Joldit.com System Devyn Vásquez MD [address] [place] [address] [phone] Social History Tobacco Use Types Packs/Day Years [...] - [facility] [address] [facility] [address] [place] [phone] Brenda Clay MD [address] [facility] [address] [place] [address] 04/15/2026 10:00 AM EDT Office Visit [facility]HA [facility] at [facility] [address] [facility] [address] [place] [address] Sena Dominguez PA [address] [facility] [place] [address] documented as of this encounter Visit Diagnoses Not on filedocumented in this encounter Care Teams Cost Estimator Relationship Specialty Start Date End Date Meme Steel MD [address] [place] [address] 105 [place] [address] PCP - General Pediatrics 06/05/18 04/25/22 No Pcp, Pcp PCP - General 06/08/22 07/19/22 Guadalupe Mcbride MD PCP - General Family Medicine 07/20/22 11/01/23 Sena Dominguez PA [address] [place] [address] [place] [address] PCP - BRADY Physician Barbecue Cook 11/02/23 Levy Barry MD [address] [place] [address] [place] [address] PCP - General Family Medicine 12/20/23 documented as of this encounter
--- OUTSIDE RECORDS SUMMARY | 2025-08-14 15:14 | XMS_ITS | Encounter Summary ---
Author Organization [facility] work ([facility]) Address [address] [place] [address] Care Team Providers Care Food Service Helper Name Role Phone Meme Steel MD Primary Care Provider [phone] No Pcp, Pcp Primary Care Provider Unavailabl Guadalupe Bardales MD Primary Care Provider [phone] Sena Dominguez Unavailable [phone] Levy Barry MD Primary Care Provider Unavailab le Source Comments The information that you have received may contain highly confidential and/or federally protected health information. This information has been disclosed to you from records protected by [facility]. The law prohibits you [...] contact the sender immediately.[facility] ([facility]) Encounter Details Date Type Department Care Team (Late st Contact Info) Description 2004 Historical Note SVMG MedClimate System Devyn Vásquez MD [address] [place] [address] [phone] Social History Tobacco Use Types Packs/Day Years [...] Visit LEATHA CARRILLO - [facility] [address] [facility] [address] [place] [phone] Brenda Clay MD [address] [facility] [address] [place] [address] 04/15/2026 10:00 AM EDT Office Visit LE[facility]HA [facility] at [facility] + [facility] [address] [facility] [address] [place] [address] Sena Dominguez PA [address] [facility] [place] [address] documented as of this encounter Visit Diagnoses Not on filedocumented in this encounter Care Teams Food Service Helper Relationship Specialty Start Date End Date Meme Steel MD [address] [place] [address] 105 [place] [address] PCP - General Pediatrics 06/05/18 04/25/22 No Pcp, Pcp PCP - General 06/08/22 07/19/22 Guadalupe Mcbride MD PCP - General Family Medicine 07/20/22 11/01/23 Sena Dominguez PA [address] [place] [address] [place] [address] PCP - BRADY Physician Assessment Nurse Practitioner 11/02/23 Levy Barry MD [address] [place] [address] [place] [address] PCP - General Family Medicine 12/20/23 documented as of this encounter
--- OUTSIDE RECORDS SUMMARY | 2025-08-14 15:14 | XMS_ITS | Encounter Summary ---
Author Organization [facility] work ([facility]) Address [address] [facility] [address] [place] [address] Care Team Providers Care Respiratory Therapy Director Name Role Phone Meme Steel MD Primary Care Provider [phone] Pcp, Pcp Primary Care Provider Unavailabl Guadalupe Bardales MD Primary Care Provider [phone] Sena Dominguez Unavailable [phone] Levy Barry MD Primary Care Provider Unavailab le Source Comments The information that you have received may contain highly confidential and/or federally protected health information. This information has been disclosed to you from records protected by [facility]. The law prohibits you from [...] please contact the sender immediately.[facility] ([facility]) Encounter Details Date Type Department Care Team (Late st Contact Info) Description 2004 Historical Note SVMG Perdoo System Devyn Vásquez MD [address] [place] [address] [phone] Social History Tobacco Use Types Packs/Day Years [...] [facility] [address] [facility] [address] [place] [phone] Brenda Clay MD [address] [facility] [address] [place] [address] 04/15/2026 10:00 AM EDT Office Visit [facility]HA [facility] at [facility] + [facility] [address] [facility] [address] [place] [address] Sena Dominguez PA [address] [facility] [place] [address] documented as of this encounter Visit Diagnoses Not on filedocumented in this encounter Care Teams Respiratory Therapy Director Relationship Specialty Start Date End Date Meme Steel MD [address] [place] [address] 105 [place] [address] PCP - General Pediatrics 06/05/18 04/25/22 No Pcp, Pcp PCP - General 06/08/22 07/19/22 Guadalupe Mcbride MD PCP - General Family Medicine 07/20/22 11/01/23 Sena Dominguez PA [address] [place] [address] [place] [address] PCP - BRADY Physician Dental Equipment Mechanic 11/02/23 Levy Barry MD [address] [place] [address] [place] [address] PCP - General Family Medicine 12/20/23 documented as of this encounter
--- OUTSIDE RECORDS SUMMARY | 2025-08-14 15:14 | XMS_ITS | Encounter Summary ---
Author Organization [facility] work ([facility]) Address [address] [place] [address] Care Team Providers Care Escrow Processor Name Role Phone Meme Steel MD Primary Care Provider [phone] Pcp, Pcp Primary Care Provider Unavailabl Guadalupe Bardales MD Primary Care Provider [phone] Sena Dominguez Unavailable [phone] Levy Barry MD Primary Care Provider Unavailab le Source Comments The information that you have received may contain highly confidential and/or federally protected health information. This information has been disclosed to you from records protected by [facility]. The law prohibits you [...] the sender immediately.[facility] ([facility]) Encounter Details Date Type Department Care Team (Late st Contact Info) Description 2004 Historical Note SVMG UpNext System Devyn Vásquez MD [address] [place] [address] [phone] Social History Tobacco Use Types Packs/Day Years [...] Visit LEATHA CARRILLO - [facility] [address] [facility] [address] [place] [phone] Brenda Clay MD [address] [facility] [address] [place] [address] 04/15/2026 10:00 AM EDT Office Visit [facility]HA [facility] + [facility] [address] [facility] [address] [place] [address] Sena Dominguez PA [address] [facility] [place] [address] documented as of this encounter Visit Diagnoses Not on filedocumented in this encounter Care Teams Escrow Processor Relationship Specialty Start Date End Date eMme Steel MD [address] [place] [address] 105 [place] [address] PCP - General Pediatrics 06/05/18 04/25/22 No Pcp, Pcp PCP - General 06/08/22 07/19/22 Guadalupe Mcbride MD PCP - General Family Medicine 07/20/22 11/01/23 Sena Dominguez PA [address] [place] [address] [place] [address] PCP - BRADY Physician Biopsychologist 11/02/23 Levy Barry MD [address] [place] [address] [place] [address] PCP - General Family Medicine 12/20/23 documented as of this encounter
--- OUTSIDE RECORDS SUMMARY | 2025-08-14 15:14 | XMS_ITS | Encounter Summary ---
Author Organization [facility] work ([facility]) Address [address] [place] [address] Care Team Providers Care Stunt Man Name Role Phone Meme Steel MD Primary Care Provider [phone] Pcp, Pcp Primary Care Provider Unavailabl Guadalupe Bardales MD Primary Care Provider [phone] Sena Dominguez Unavailable [phone] Levy Barry MD Primary Care Provider Unavailab le Source Comments The information that you have received may contain highly confidential and/or federally protected health information. This information has been disclosed to you from records protected by [facility]. The law prohibits you from making [...] please contact the sender immediately.[facility] ([facility]) Encounter Details Date Type Department Care Team (Late st Contact Info) Description 2004 Historical Note SVMG Mainstream Energy System Devyn Vásquez MD [address] [place] [address] [phone] Social History Tobacco Use Types Packs/Day Years [...] [facility] [address] [facility] [address] [place] [phone] Brenda Clay MD [address] [facility] [address] [place] [address] 04/15/2026 10:00 AM EDT Office Visit LEATHA [facility] at [facility] + [facility] [address] [facility] [address] [place] [address] Sena Dominguez PA [address] [facility] [place] [address] documented as of this encounter Visit Diagnoses Not on filedocumented in this encounter Care Teams Stunt Man Relationship Specialty Start Date End Date Meme Steel MD [address] [place] [address] 105 [place] [address] PCP - General Pediatrics 06/05/18 04/25/22 No Pcp, Pcp PCP - General 06/08/22 07/19/22 Guadalupe Mcbride MD PCP - General Family Medicine 07/20/22 11/01/23 Sena Dominguez PA [address] [place] [address] [place] [address] PCP - BRADY Physician Lathe Operator 11/02/23 Levy Barry MD [address] [place] [address] [place] [address] PCP - General Family Medicine 12/20/23 documented as of this encounter
--- OUTSIDE RECORDS SUMMARY | 2025-08-14 15:14 | XMS_ITS | Encounter Summary ---
Author Organization [facility] work ([facility]) Address [address] [facility] [address] [place] [address] Care Team Providers Care Car Storer Name Role Phone Meme Steel MD Primary Care Provider [phone] Pcp, Pcp Primary Care Provider Unavailabl Guadalupe Bardales MD Primary Care Provider [phone] Sena Dominguez Unavailable Levy Barry MD Primary Care Provider Unavailab le Source Comments The information that you have received may contain highly confidential and/or federally protected health information. This information has been disclosed to you from records protected by [facility]. The law [...] in error, please contact the sender immediately. ([facility]) Encounter Details Date Type Department Care Team (Late st Contact Info) Description 2004 Historical Note SVMG Vapore System Devyn Vásquez MD [address] [place] [address] [phone] Social History Tobacco Use Types Packs/Day Years [...] CARRILLO - [facility] [address] [facility] [address] [place] [phone] Brenda Clay MD [address] [facility] [address] [place] [address] 04/15/2026 10:00 AM EDT Office Visit LEATHA [facility] at [place] [facility] + [facility] [address] [facility] [address] [place] [address] Sena Dominguez PA [address] [facility] [place] [address] documented as of this encounter Visit Diagnoses Not on filedocumented in this encounter Care Teams Car Storer Relationship Specialty Start Date End Date Meme Steel MD [address] [place] [address] 105 [place] [address] PCP - General Pediatrics 06/05/18 04/25/22 No Pcp, Pcp PCP - General 06/08/22 07/19/22 Guadalupe Mcbride MD PCP - General Family Medicine 07/20/22 11/01/23 Sena Dominguez PA [address] [place] [address] [place] [address] PCP - BRADY Physician Bending Shed Worker 11/02/23 Levy Barry MD [address] [place] [address] [place] [address] PCP - General Family Medicine 12/20/23 documented as of this encounter
--- OUTSIDE RECORDS SUMMARY | 2025-08-14 15:14 | XMS_ITS | Encounter Summary ---
Author Organization [facility] work ([facility]) Address [address] [place] [address] Care Team Providers Care Transformer Coil Winder Name Role Phone Meme Steel MD Primary Care Provider [phone] Pcp, Pcp Primary Care Provider Unavailabl Guadalupe Bardales MD Primary Care Provider [phone] Sena Dominguez Unavailable [phone] Levy Barry MD Primary Care Provider Unavailab le Source Comments The information that you have received may contain highly confidential and/or federally protected health information. This information has been disclosed to you from records protected by [facility]. The law [...] contact the sender immediately.[facility] ([facility]) Encounter Details Date Type Department Care Team (Late st Contact Info) Description 11/16/2006 Historical Note SVMG LDK Solar System Devyn Vásquez MD [address] [place] [address] [phone] Social History Tobacco Use Types Packs/Day Years [...] - [facility] [address] [facility] [address] [place] [phone] Brenda Clay MD [address] [facility] [address] [place] [address] 04/15/2026 10:00 AM EDT Office Visit LEATHA [facility] at [facility] + [facility] [address] [facility] [address] [place] [address] Sena Dominguez PA [address] [facility] [place] [address] documented as of this encounter Visit Diagnoses Not on filedocumented in this encounter Care Teams Transformer Coil Winder Relationship Specialty Start Date End Date Meme Steel MD [address] [place] [address] 105 [place] [address] PCP - General Pediatrics 06/05/18 04/25/22 No Pcp, Pcp PCP - General 06/08/22 07/19/22 Guadalupe Mcbrdie MD PCP - General Family Medicine 07/20/22 11/01/23 Sena Dominguez PA [address] [place] [address] [place] [address] PCP - BRADY Physician Cook Helper 11/02/23 Levy Barry MD [address] [place] [address] [place] [address] PCP - General Family Medicine 12/20/23 documented as of this encounter
--- OUTSIDE RECORDS SUMMARY | 2025-08-14 15:14 | XMS_ITS | Encounter Summary ---
Author Organization [facility] work ([facility]) Address [address] [address] [facility] [address] [place] [address] Care Team Providers Care Gas Line Installer Name Role Phone Meme Steel MD Primary Care Provider [phone] Pcp, Pcp Primary Care Provider Unavailabl Guadalupe Bardales MD Primary Care Provider [phone] Sena Dominguez Unavailable [phone] Levy Barry MD Primary Care Provider Unavailab le Source Comments The information that you have received may contain highly confidential and/or federally protected health information. This information has been disclosed to you from records protected by [facility]. The law prohibits you [...] contact the sender immediately.[facility] ([facility]) Encounter Details Date Type Department Care Team (Late st Contact Info) Description 2004 Historical Note SVMG Nebula System Devyn Vásquez MD [address] [place] [address] [phone] Social History Tobacco Use Types Packs/Day Years [...] CARRILLO - [facility] [address] [facility] [address] [place] [phone] Brenda Clay MD [address] [facility] [address] [place] [address] 04/15/2026 10:00 AM EDT Office Visit LE[facility]HA [facility] [address] [facility] [address] [place] [address] Sena Dominguez PA [address] [facility] [place] [address] documented as of this encounter Visit Diagnoses Not on filedocumented in this encounter Care Teams Gas Line Installer Relationship Specialty Start Date End Date Meme Steel MD [address] [place] [address] 105 [place] [address] PCP - General Pediatrics 06/05/18 04/25/22 No Pcp, Pcp PCP - General 06/08/22 07/19/22 Guadalupe Mcbride MD PCP - General Family Medicine 07/20/22 11/01/23 Sena Dominguez PA [address] [place] [address] [place] [address] PCP - BRADY Physician Eligibility Clerk 11/02/23 Levy Barry MD [address] [place] [address] [place] [address] PCP - General Family Medicine 12/20/23 documented as of this encounter
--- OUTSIDE RECORDS SUMMARY | 2025-08-14 15:14 | XMS_ITS | Encounter Summary ---
Author Organization [facility] work ([facility]) Address [address] [place] [address] Care Team Providers Care Parole Agent Name Role Phone Meme Steel MD Primary Care Provider [phone] Pcp, Pcp Primary Care Provider Unavailabl Guadalupe Bardales MD Primary Care Provider [phone] Sena Dominguez Unavailable [phone] Levy Barry MD Primary Care Provider Unavailab le Source Comments The information that you have received may contain highly confidential and/or federally protected health information. This information has been disclosed to you from records protected by [employer]. The law prohibits you from [...] contact the sender immediately.[facility] ([facility]) Encounter Details Date Type Department Care Team (Late st Contact Info) Description 2004 Historical Note [facility] Mont[employer] System Devyn Vásquez MD [address] [place] [address] [phone] Social History Tobacco Use Types Packs/Day Years [...] CARRILLO - [facility] at [facility] [address] [facility] [address] [place] [phone] Brenda [place] MD [address] [facility] [address] [place] [address] 04/15/2026 10:00 AM EDT Office Visit LEATHA [facility] at [facility] + [facility] [address] [facility] [facility] [address] [place] [address] Sena Dominguez [place] [address] [facility] [place] [address] documented as of this encounter Visit Diagnoses Not on filedocumented in this encounter Care Teams Parole Agent Relationship Specialty Start Date End Date Meme Steel MD [address] [place] [address] [place] [address] PCP - General Pediatrics 06/05/18 04/25/22 No Pcp, Pcp PCP - General 06/08/22 07/19/22 Guadalupe Mcbride MD PCP - General Family Medicine 07/20/22 11/01/23 Sena Dominguez PA [address] [place] [address] [place] [address] PCP - BRADY Physician Recovery Analyst 11/02/23 Levy Barry MD [address] [place] [address] [place] [address] PCP - General Family Medicine 12/20/23 documented as of this encounter
--- OUTSIDE RECORDS SUMMARY | 2025-08-14 15:14 | XMS_ITS | Encounter Summary ---
Author Organization [facility] work ([facility]) Address [address] [place] [address] Care Team Providers Care Applications Scientist Name Role Phone Meme Steel MD Primary Care Provider [phone] Pcp, Pcp Primary Care Provider Unavailabl Guadalupe Bardales MD Primary Care Provider [phone] Sena Dominguez Unavailable [phone] Levy Barry MD Primary Care Provider Unavailab le Source Comments The information that you have received may contain highly confidential and/or federally protected health information. This information has been disclosed to you from records protected by [facility]. The law prohibits you from [...] sender immediately.[facility] ([facility]) Encounter Details Date Type Department Care Team (Late st Contact Info) Description 2004 Historical Note [facility] [employer] System Devyn Vásquez MD [address] [place] [address] [phone] Social History Tobacco Use Types Packs/Day Years [...] Office Visit LEATHA CARRILLO - [facility] [address] [facility] [address] [place] [phone] Brenda [place] MD [address] [facility] [address] [place] [phone] 04/15/2026 10:00 AM EDT Office Visit LEATHA Primary Care at [facility] + [facility] [address] [facility] [address] [place] [address] Sena Dominguez PA [address] [facility] [place] [address] documented as of this encounter Visit Diagnoses Not on filedocumented in this encounter Care Teams Applications Scientist Relationship Specialty Start Date End Date Meme Steel MD [address] [place] [address] 105 [place] [address] PCP - General Pediatrics 06/05/18 04/25/22 No Pcp, Pcp PCP - General 06/08/22 07/19/22 Guadalupe Mcbride MD PCP - General Family Medicine 07/20/22 11/01/23 Sena Dominguez PA [address] [place] [address] [place] [address] PCP - BRADY Physician Slot Ambassador 11/02/23 Levy Barry MD [address] [place] [address] [place] [address] PCP - General Family Medicine 12/20/23 documented as of this encounter
--- OUTSIDE RECORDS SUMMARY | 2025-08-14 15:14 | XMS_ITS | Encounter Summary ---
Author Organization [facility] work ([facility]) Address [address] [place] [address] Care Team Providers Care Lead Furnace Operator Name Role Phone Meme Steel MD Primary Care Provider [phone] Pcp, Pcp Primary Care Provider Unavailabl Guadalupe Bardales MD Primary Care Provider [phone] Sena Dominguez Unavailable [phone] Levy Barry MD Primary Care Provider Unavailab le Source Comments The information that you have received may contain highly confidential and/or federally protected health information. This information has been disclosed to you from records protected by [facility]. The law prohibits you [...] please contact the sender immediately.[facility] ([facility]) Encounter Details Date Type Department Care Team (Late st Contact Info) Description 05/29/2006 Historical Note [facility] [employer] [facility] Devyn Vásquez MD [address] [place] [address] [phone] Social History Tobacco Use Types Packs/Day Years [...] CARRILLO - [facility] [address] [facility] [address] [place] [phone] Brenda [place] MD [address] [facility] [address] [place] [phone] 04/15/2026 10:00 AM EDT Office Visit [facility]HA [facility] at [facility] + [facility] [address] [facility] [address] [place] [address] Sena Dominguez PA [address] [facility] [place] [address] documented as of this encounter Visit Diagnoses Not on filedocumented in this encounter Care Teams Lead Furnace Operator Relationship Specialty Start Date End Date Meme Steel MD [address] [place] [address] 105 [place] [address] PCP - General Pediatrics 06/05/18 04/25/22 No Pcp, Pcp PCP - General 06/08/22 07/19/22 Guadalupe Mcbride MD PCP - General Family Medicine 07/20/22 11/01/23 Sena Dominguez PA [address] [place] [address] [place] [address] PCP - BRADY Physician Release And Technical Records Clerk 11/02/23 Levy Barry MD [address] [place] [address] [place] [address] PCP - General Family Medicine 12/20/23 documented as of this encounter
--- OUTSIDE RECORDS SUMMARY | 2025-08-14 15:14 | XMS_ITS | Encounter Summary ---
Author Organization [facility] work ([facility]) Address [address] [place] [address] Care Team Providers Care Marking Machine Tender Name Role Phone Meme Steel MD Primary Care Provider [phone] Pcp, Pcp Primary Care Provider Unavailabl Guadalupe Bardales MD Primary Care Provider [phone] Sena Dominguez Unavailable [phone] Levy Barry MD Primary Care Provider Unavailab le Source Comments The information that you have received may contain highly confidential and/or federally protected health information. This information has been disclosed to you from records protected by [employer] [facility]. The law prohibits you [...] the sender immediately.[facility] ([facility]) Encounter Details Date Type Department Care Team (Late st Contact Info) Description 05/29/2006 Historical Note [facility] [employer] System Devyn Vásquez MD [address] [place] [address] [phone] Social History Tobacco Use Types Packs/Day Years [...] at [facility] [address] [facility] [address] [place] [phone] Brenda [place] MD [address] [facility] [address] [place] [address] 04/15/2026 10:00 AM EDT Office Visit LEATHA [facility] at [facility] + [facility] [address] [facility] [address] [place] [address] Sena Dominguez PA [address] [facility] [place] [address] documented as of this encounter Visit Diagnoses Not on filedocumented in this encounter Care Teams Marking Machine Tender Relationship Specialty Start Date End Date Meme Steel MD [address] [place] [address] 105 [place] [address] PCP - General Pediatrics 06/05/18 04/25/22 No Pcp, Pcp PCP - General 06/08/22 07/19/22 Guadalupe Mcbride MD PCP - General Family Medicine 07/20/22 11/01/23 Sena Dominguez PA [address] [place] [address] [place] [address] PCP - BRADY Physician Email Marketing Manager 11/02/23 Levy Barry MD [address] [place] [address] [place] [address] PCP - General Family Medicine 12/20/23 documented as of this encounter
--- OUTSIDE RECORDS SUMMARY | 2025-08-14 15:14 | XMS_ITS | Encounter Summary ---
Author Organization [facility] work ([facility]) Address [address] [place] [address] Care Team Providers Care Transition Manager Name Role Phone Meme Steel MD Primary Care Provider [phone] Pcp, Pcp Primary Care Provider Unavailabl Guadalupe Bardales MD Primary Care Provider [phone] Sena Dominguez Unavailable Levy Barry MD Primary Care Provider Unavailab le Source Comments The information that you have received may contain highly confidential and/or federally protected health information. This information has been disclosed to you from records protected by [employer] [facility]. The law prohibits you from [...] error, please contact the sender immediately.[facility] ([facility]) Encounter Details Date Type Department Care Team (Late st Contact Info) Description 2004 Historical Note [facility] [employer] System Devyn Vásquez MD [address] [place] [address] [phone] Social History Tobacco Use Types Packs/Day Years [...] CARRILLO - [facility] [address] [facility] [address] [place] [phone] Brenda [place] MD [address] [facility] [address] [place] [address] 04/15/2026 10:00 AM EDT Office Visit [facility]HA [facility] at [facility] + [facility] [address] [facility] [address] [place] [address] Sena Dominguez PA [address] [facility] [place] [address] documented as of this encounter Visit Diagnoses Not on filedocumented in this encounter Care Teams Transition Manager Relationship Specialty Start Date End Date Meme Steel MD [address] [place] [address] 105 [place] [address] PCP - General Pediatrics 06/05/18 04/25/22 No Pcp, Pcp PCP - General 06/08/22 07/19/22 Guadalupe Mcbride MD PCP - General Family Medicine 07/20/22 11/01/23 Sena Dominguez PA [address] [place] [address] [place] [address] PCP - BRADY Physician Glass Science Engineer 11/02/23 Levy Barry MD [address] [place] [address] [place] [address] PCP - General Family Medicine 12/20/23 documented as of this encounter
--- OUTSIDE RECORDS SUMMARY | 2025-08-14 15:14 | XMS_ITS | Encounter Summary ---
Author Organization [facility] work ([facility]) Address [address] [place] [address] Care Team Providers Care Track Announcer Name Role Phone Meme Steel MD Primary Care Provider [phone] Pcp, Pcp Primary Care Provider Unavailabl Guadalupe Bardales MD Primary Care Provider [phone] Sena Dominguez Unavailable [phone] Levy Barry MD Primary Care Provider Unavailab le Source Comments The information that you have received may contain highly confidential and/or federally protected health information. This information has been disclosed to you from records protected by [facility]. The law prohibits you [...] the sender immediately.[facility] ([facility]) Encounter Details Date Type Department Care Team (Late st Contact Info) Description 2004 Historical Note [facility] [employer] System Devyn Vásquez MD [address] [place] [address] [phone] Social History Tobacco Use Types Packs/Day Years [...] LEATHA CARRILLO - [facility] at [facility] [address] [facility] [address] [place] [phone] Brenda [place] MD [address] [facility] [address] [place] [phone] 04/15/2026 10:00 AM EDT Office Visit LEATHA Primary [facility] at [facility] + [facility] [address] [facility] [address] [place] [address] Sena Dominguez PA [address] [facility] [place] [address] documented as of this encounter Visit Diagnoses Not on filedocumented in this encounter Care Teams Track Announcer Relationship Specialty Start Date End Date Meme Steel MD [address] [place] [address] [place] [address] PCP - General Pediatrics 06/05/18 04/25/22 No Pcp, Pcp PCP - General 06/08/22 07/19/22 Guadalupe Mcbride MD PCP - General Family Medicine 07/20/22 11/01/23 Sena Dominguez PA [address] [place] [address] [place] [address] PCP - BRADY Physician Manager Hydraulic 11/02/23 Levy Barry MD [address] [place] [address] [place] [address] PCP - General Family Medicine 12/20/23 documented as of this encounter
--- OUTSIDE RECORDS SUMMARY | 2025-08-14 15:14 | XMS_ITS | Encounter Summary ---
Author Organization [facility] work ([facility]) Address [address] [place] [address] Care Team Providers Care Efficiency Expert Name Role Phone Meme Steel MD Primary Care Provider [phone] No Pcp, Pcp Primary Care Provider Unavailabl Guadalupe Bardales MD Primary Care Provider [phone] Sena Dominguez Unavailable [phone] Levy Barry MD Primary Care Provider Unavailab le Source Comments The information that you have received may contain highly confidential and/or federally protected health information. This information has been disclosed to you from records protected by [facility]. The law prohibits you [...] the sender immediately.[facility] ([facility]) Encounter Details Date Type Department Care Team (Late st Contact Info) Description 2004 Historical Note [facility] CCM Bench[employer] System Devyn Vásquez MD [address] [place] [address] [phone] Social History Tobacco Use Types Packs/Day Years [...] CARRILLO - [facility] [address] [facility] [address] [place] [phone] Brenda [place] MD [address] [facility] [address] [place] [address] 04/15/2026 10:00 AM EDT Office Visit LEATHA Primary [facility] at [facility] + [facility] [address] [facility] [address] [place] [address] Sena Dominguez PA [address] [facility] [place] [address] documented as of this encounter Visit Diagnoses Not on filedocumented in this encounter Care Teams Efficiency Expert Relationship Specialty Start Date End Date Meme Steel MD [address] [place] [address] 105 [place] [address] PCP - General Pediatrics 06/05/18 04/25/22 No Pcp, Pcp PCP - General 06/08/22 07/19/22 Guadalupe Mcbride MD PCP - General Family Medicine 07/20/22 11/01/23 Sena Dominguez PA [address] [place] [address] [place] [address] PCP - BRADY Physician Campus Receptionist 11/02/23 Levy Barry MD [address] [place] [address] [place] [address] PCP - General Family Medicine 12/20/23 documented as of this encounter
--- OUTSIDE RECORDS SUMMARY | 2025-08-14 15:14 | XMS_ITS | Encounter Summary ---
Author Organization [facility] work ([facility]) Address [address] [place] [address] Care Team Providers Care Blow Mold Technician Name Role Phone Meme Steel MD Primary Care Provider [phone] Pcp, Pcp Primary Care Provider Unavailabl Guadalupe Bardales MD Primary Care Provider [phone] Sena Dominguez Unavailable [phone] Levy Barry MD Primary Care Provider Unavailab le Source Comments The information that you have received may contain highly confidential and/or federally protected health information. This information has been disclosed to you from records protected by [facility]. The law prohibits you [...] [facility] ([facility]) Encounter Details Date Type Department Care Team (Late st Contact Info) Description 11/14/2006 Historical Note [facility] Re[employer]er System Devyn Vásquez MD [address] [place] [address] [phone] Social History Tobacco Use Types Packs/Day Years [...] LEATHA CARRILLO - [facility] at [facility] [address] [facility] [address] [place] [phone] Brenda [place] MD [address] [facility] [address] [place] [address] 04/15/2026 10:00 AM EDT Office Visit LEATHA [facility] at [facility] + [facility] [address] [facility] [address] [place] [address] Sena Dominguez PA [address] [facility] [place] [address] documented as of this encounter Visit Diagnoses Not on filedocumented in this encounter Care Teams Blow Mold Technician Relationship Specialty Start Date End Date Meme Steel MD [address] [place] [address] 105 [place] [address] PCP - General Pediatrics 06/05/18 04/25/22 No Pcp, Pcp PCP - General 06/08/22 07/19/22 Guadalupe Mcbride MD PCP - General Family Medicine 07/20/22 11/01/23 Sena Dominguez PA [address] [place] [address] [place] [address] PCP - BRADY Physician Burr Bench Hand 11/02/23 Levy Barry MD [address] [place] [address] [place] [address] PCP - General Family Medicine 12/20/23 documented as of this encounter
--- OUTSIDE RECORDS SUMMARY | 2025-08-14 15:14 | XMS_ITS | Encounter Summary ---
Author Organization [facility] work ([facility]) Address [address] [place] [address] Care Team Providers Care Water Filtration Technician Name Role Phone Meme Steel MD Primary Care Provider [phone] No Pcp, Pcp Primary Care Provider Unavailabl Guadalupe Bardales MD Primary Care Provider [phone] Sena Dominguez Unavailable [phone] Levy Baryr MD Primary Care Provider Unavailab le Source Comments The information that you have received may contain highly confidential and/or federally protected health information. This information has been disclosed to you from records protected by [facility]. The law prohibits you from [...] contact the sender immediately.[facility] ([facility]) Encounter Details Date Type Department Care Team (Late st Contact Info) Description 03/11/2007 Historical Note [facility] [employer] System Devyn Vásquez MD [address] [place] [address] [phone] Social History Tobacco Use Types Packs/Day Years [...] LEATHA CARRILLO - [facility] [address] [facility] [address] [place] [phone] Brenda [place] MD [address] [facility] [address] [place] [address] 04/15/2026 10:00 AM EDT Office Visit LEATHA [facility] at [facility] + [facility] [address] [facility] [address] [place] [address] Sena Dominguez PA [address] [facility] [place] [address] documented as of this encounter Visit Diagnoses Not on filedocumented in this encounter Care Teams Water Filtration Technician Relationship Specialty Start Date End Date Meme Steel MD [address] [place] [address] 105 [place] [address] PCP - General Pediatrics 06/05/18 04/25/22 No Pcp, Pcp PCP - General 06/08/22 07/19/22 Guadalupe Mcbride MD PCP - General Family Medicine 07/20/22 11/01/23 Sena Dominguez PA [address] [place] [address] [place] [address] PCP - BRADY Physician Rfp Writer 11/02/23 Levy Barry MD [address] [place] [address] [place] [address] PCP - General Family Medicine 12/20/23 documented as of this encounter
--- OUTSIDE RECORDS SUMMARY | 2025-08-14 15:14 | XMS_ITS | Encounter Summary ---
Author Organization [facility] work ([facility]) Address [address] [place] [address] Care Team Providers Care Child And Adolescent Psychiatrist Name Role Phone Meme Steel MD Primary Care Provider [phone] Pcp, Pcp Primary Care Provider Unavailabl Guadalupe Bardales MD Primary Care Provider [phone] Sena Dominguez Unavailable [phone] Levy Barry MD Primary Care Provider Unavailab le Source Comments The information that you have received may contain highly confidential and/or federally protected health information. This information has been disclosed to you from records protected by [facility]. The law prohibits [...] Contact Info) Description 2004 Historical Note [facility] Live[employer] System Devyn Vásquez MD [address] [place] [address] [phone] Social History Tobacco Use Types Packs/Day Years [...] LEATHA CARRILLO - [facility] [address] [facility] [address] [place] [phone] Brenda [place] MD [address] [facility] [address] [place] [address] 04/15/2026 10:00 AM EDT Office Visit LEATHA [facility] at [facility] + [facility] [address] [facility] [address] [place] [address] Sena Dominguez PA [address] [facility] [place] [address] documented as of this encounter Visit Diagnoses Not on filedocumented in this encounter Care Teams Child And Adolescent Psychiatrist Relationship Specialty Start Date End Date Meme Steel MD [address] [place] [address] 105 [place] [address] PCP - General Pediatrics 06/05/18 04/25/22 No Pcp, Pcp PCP - General 06/08/22 07/19/22 Guadalupe Mcbride MD PCP - General Family Medicine 07/20/22 11/01/23 Sena Dominguez PA [address] [place] [address] [place] [address] PCP - BRADY Physician Kennel Hand 11/02/23 Levy Barry MD [address] [place] [address] [place] [address] PCP - General Family Medicine 12/20/23 documented as of this encounter
--- OUTSIDE RECORDS SUMMARY | 2025-08-14 15:14 | XMS_ITS | Encounter Summary ---
Author Organization [facility] work ([facility]) Address [address] [facility] [address] [place] [address] Care Team Providers Care Electronic Warfare Linguist Name Role Phone Meme Steel MD Primary Care Provider [phone] No Pcp, Pcp Primary Care Provider Unavailabl Guadalupe Bardales MD Primary Care Provider [phone] Sena Dominguez Unavailable [phone] Levy Barry MD Primary Care Provider Unavailab le Source Comments The information that you have received may contain highly confidential and/or federally protected health information. This information has been disclosed to you from records protected by [facility]. The law prohibits you from [...] sender immediately.[facility] ([facility]) Encounter Details Date Type Department Care Team (Late st Contact Info) Description 06/26/2007 Historical Note [facility] Keemotion System Devyn Vásquez MD [address] [place] [address] [phone] Social History Tobacco Use Types Packs/Day Years [...] CARRILLO - [facility] at [facility] [address] [facility] [address] [place] [phone] Brenda Clay MD [address] [facility] [address] [place] [address] 04/15/2026 10:00 AM EDT Office Visit [facility] + [facility] [address] [facility] [address] [place] [address] Sena Dominguez PA [address] [facility] [place] [address] documented as of this encounter Visit Diagnoses Not on filedocumented in this encounter Care Teams Electronic Warfare Linguist Relationship Specialty Start Date End Date Meme Steel MD [address] [place] [address] 105 [place] [address] PCP - General Pediatrics 06/05/18 04/25/22 No Pcp, Pcp PCP - General 06/08/22 07/19/22 Guadalupe Mcbride MD PCP - General Family Medicine 07/20/22 11/01/23 Sena Dominguez PA [address] [place] [address] [place] [address] PCP - BRADY Physician Asbestos Cloth Inspector 11/02/23 Levy Barry MD [address] [place] [address] [place] [address] PCP - General Family Medicine 12/20/23 documented as of this encounter
--- OUTSIDE RECORDS SUMMARY | 2025-08-14 15:14 | XMS_ITS | Encounter Summary ---
Author Organization [facility] work ([facility]) Address [address] [place] [address] Care Team Providers Care Search Coordinator Name Role Phone Meme Steel MD Primary Care Provider [phone] Pcp, Pcp Primary Care Provider Unavailabl Guadalupe Bardales MD Primary Care Provider [phone] Sena Dominguez Unavailable [phone] Levy Barry MD Primary Care Provider Unavailab le Source Comments The information that you have received may contain highly confidential and/or federally protected health information. This information has been disclosed to you from records protected by [facility]. The law prohibits you from [...] immediately.[facility] ([facility]) Encounter Details Date Type Department Care Team (Late st Contact Info) Description 06/01/2006 Historical Note [facility] [email or web address] System Devyn Vásquez MD [address] [place] [address] [phone] Social History Tobacco Use Types Packs/Day Years [...] Visit LEATHA CARRILLO - [facility] [address] [facility] [address] [place] [phone] Brenda Clay MD [address] [facility] [address] [place] [address] 04/15/2026 10:00 AM EDT Office Visit [facility] at [facility] + [facility] [address] [facility] [address] [place] [address] Sena Dominguez PA [address] [facility] [place] [address] documented as of this encounter Visit Diagnoses Not on filedocumented in this encounter Care Teams Search Coordinator Relationship Specialty Start Date End Date Meme Steel MD [address] [place] [address] 105 [place] [address] PCP - General Pediatrics 06/05/18 04/25/22 No Pcp, Pcp PCP - General 06/08/22 07/19/22 Guadalupe Mcbride MD PCP - General Family Medicine 07/20/22 11/01/23 Sena Dominguez PA [address] [place] [address] [place] [address] PCP - BRADY Physician Stone Driller 11/02/23 Levy Barry MD [address] [place] [address] [place] [address] PCP - General Family Medicine 12/20/23 documented as of this encounter
--- OUTSIDE RECORDS SUMMARY | 2025-08-14 15:14 | XMS_ITS | Encounter Summary ---
Author Organization [facility] work ([facility]) Address [address] [place] [address] Care Team Providers Care Nuclear Reactor Engineer Name Role Phone Meme Steel MD Primary Care Provider [phone] Pcp, Pcp Primary Care Provider Unavailabl Guadalupe Bardales MD Primary Care Provider [phone] Sena Dominguez Unavailable [phone] Levy Barry MD Primary Care Provider Unavailab le Source Comments The information that you have received may contain highly confidential and/or federally protected health information. This information has been disclosed to you from records protected by [facility]. The law prohibits you [...] please contact the sender immediately.[facility] ([facility]) Encounter Details Date Type Department Care Team (Late st Contact Info) Description 11/14/2006 Historical Note [facility] FRUCT System Devyn Vásquez MD [address] [place] [address] [phone] Social History Tobacco Use Types Packs/Day Years [...] LEATHA CARRILLO - [facility] [address] [facility] [address] [place] [phone] Brenda Clay MD [address] [facility] [address] [place] [address] 04/15/2026 10:00 AM EDT Office Visit [facility]HA [facility] at [facility] + [facility] [address] [facility] [address] [place] [address] Sena Dominguez PA [address] [facility] [place] [address] documented as of this encounter Visit Diagnoses Not on filedocumented in this encounter Care Teams Nuclear Reactor Engineer Relationship Specialty Start Date End Date Meme Steel MD [address] [place] [address] 105 [place] [address] PCP - General Pediatrics 06/05/18 04/25/22 No Pcp, Pcp PCP - General 06/08/22 07/19/22 Guadalupe Mcbride MD PCP - General Family Medicine 07/20/22 11/01/23 Sena Dominguez PA [address] [place] [address] [place] [address] PCP - BRADY Physician Dispatch Lead 11/02/23 Levy Barry MD [address] [place] [address] [place] [address] PCP - General Family Medicine 12/20/23 documented as of this encounter
--- OUTSIDE RECORDS SUMMARY | 2025-08-14 15:14 | XMS_ITS | Encounter Summary ---
Author Organization [facility] work ([facility]) Address [address] [facility] [address] [place] [address] Care Team Providers Care Senior Commercial Loan Officer Name Role Phone Meme Steel MD Primary Care Provider [phone] Pcp, Pcp Primary Care Provider Unavailabl Guadalupe Bardales MD Primary Care Provider [phone] Sena Dominguez Unavailable [phone] Levy Barry MD Primary Care Provider Unavailab le Source Comments The information that you have received may contain highly confidential and/or federally protected health information. This information has been disclosed to you from records protected by [facility]. The law prohibits you [...] error, please contact the sender immediately.[facility] ([facility]) Encounter Details Date Type Department Care Team (Late st Contact Info) Description 2004 Historical Note [facility] Converged Access System Devyn Vásquez MD [address] [place] [address] [phone] Social History Tobacco Use Types Packs/Day Years [...] CARRILLO - [facility] at [facility] [address] [facility] [address] [place] [phone] Brenda Clay MD [address] [facility] [address] [place] [address] 04/15/2026 10:00 AM EDT Office Visit [facility] + [facility] [address] [facility] [address] [place] [address] Sena Dominguez PA [address] [facility] [place] [address] documented as of this encounter Visit Diagnoses Not on filedocumented in this encounter Care Teams Senior Commercial Loan Officer Relationship Specialty Start Date End Date Meme Steel MD [address] [place] [address] 105 [place] [address] PCP - General Pediatrics 06/05/18 04/25/22 No Pcp, Pcp PCP - General 06/08/22 07/19/22 Guadalupe Mcbride MD PCP - General Family Medicine 07/20/22 11/01/23 Sena Dominguez PA [address] [place] [address] [place] [address] PCP - BRADY Physician Box Finisher 11/02/23 Levy Barry MD [address] [place] [address] [place] [address] PCP - General Family Medicine 12/20/23 documented as of this encounter
--- OUTSIDE RECORDS SUMMARY | 2025-08-14 15:14 | XMS_ITS | Encounter Summary ---
Author Organization [facility] work ([facility]) Address [address] [facility] [address] [place] [address] Care Team Providers Care Gristmiller Name Role Phone Meme Steel MD Primary Care Provider [phone] Pcp, Pcp Primary Care Provider Unavailabl Guadalupe Bardales MD Primary Care Provider [phone] Sena Dominguez Unavailable [phone] Levy Barry MD Primary Care Provider Unavailab le Source Comments The information that you have received may contain highly confidential and/or federally protected health information. This information has been disclosed to you from records protected by [facility]. The law prohibits [...] contact the sender immediately.[facility] ([facility]) Encounter Details Date Type Department Care Team (Late st Contact Info) Description 2004 Historical Note [facility] DNsolution System Devyn Vásquez MD [address] [place] [address] [phone] Social History Tobacco Use Types Packs/Day Years [...] LEATHA CARRILLO - [facility] [address] [facility] [address] [place] [phone] Brenda Clay MD [address] [facility] [address] [place] [address] 04/15/2026 10:00 AM EDT Office Visit [facility] [address] [facility] [address] [place] [address] Sena Dominguez PA [address] [facility] [place] [address] documented as of this encounter Visit Diagnoses Not on filedocumented in this encounter Care Teams Gristmiller Relationship Specialty Start Date End Date Meme Steel MD [address] [place] [address] 105 [place] [address] PCP - General Pediatrics 06/05/18 04/25/22 No Pcp, Pcp PCP - General 06/08/22 07/19/22 Guadalupe Mcbride MD PCP - General Family Medicine 07/20/22 11/01/23 Sena Dominguez PA [address] [place] [address] [place] [address] PCP - BRADY Physician Transitional Nurse 11/02/23 Levy Barry MD [address] [place] [address] [place] [address] PCP - General Family Medicine 12/20/23 documented as of this encounter
--- OUTSIDE RECORDS SUMMARY | 2025-08-14 15:14 | XMS_ITS | Encounter Summary ---
Author Organization [facility] work ([facility]) Address [address] [place] [address] Care Team Providers Care Telephone Cleaner Name Role Phone Meme Steel MD Primary Care Provider [phone] No Pcp, Pcp Primary Care Provider Unavailabl Guadalupe Bardales MD Primary Care Provider [phone] Sena Dominguez Unavailable Levy Barry MD Primary Care Provider Unavailab le Source Comments The information that you have received may contain highly confidential and/or federally protected health information. This information has been disclosed to you from records protected by [facility]. The law prohibits you [...] sender immediately.[facility] ([facility]) Encounter Details Date Type Department Care Team (Late st Contact Info) Description 2004 Historical Note [facility] NanoSteel System Devyn Vásquez MD [address] [place] [address] [phone] Social History Tobacco Use Types Packs/Day Years [...] LEATHA CARRILLO - [facility] at [facility] [address] [facility] [address] [place] [phone] Brenda Clay MD [address] [facility] [address] [place] [address] 04/15/2026 10:00 AM EDT Office Visit [facility]HA [facility] at [facility] + [facility] [address] [facility] [address] [place] [address] Sena Dominguez PA [address] [facility] [place] [address] documented as of this encounter Visit Diagnoses Not on filedocumented in this encounter Care Teams Telephone Cleaner Relationship Specialty Start Date End Date Meme Steel MD [address] [place] [address] 105 [place] [address] PCP - General Pediatrics 06/05/18 04/25/22 No Pcp, Pcp PCP - General 06/08/22 07/19/22 Guadalupe Mcbride MD PCP - General Family Medicine 07/20/22 11/01/23 Sena Dominguez PA [address] [place] [address] [place] [address] PCP - BRADY Physician Garment Examiner 11/02/23 Levy Barry MD [address] [place] [address] [place] [address] PCP - General Family Medicine 12/20/23 documented as of this encounter
--- OUTSIDE RECORDS SUMMARY | 2025-08-14 15:14 | XMS_ITS | Encounter Summary ---
Author Organization [facility] work ([facility]) Address [address] [facility] [address] [place] [address] Care Team Providers Care Combustion Analyst Name Role Phone Meme Steel MD Primary Care Provider [phone] Pcp, Pcp Primary Care Provider Unavailabl Guadalupe Bardales MD Primary Care Provider [phone] Sena Dominguez Unavailable Levy Barry MD Primary Care Provider Unavailab le Source Comments The information that you have received may contain highly confidential and/or federally protected health information. This information has been disclosed to you from records protected by [facility]. The law prohibits you [...] Contact Info) Description 06/26/2007 Historical Note [facility] Possibility Space System Devyn Vásquez MD [address] [place] [address] [phone] Social History Tobacco Use Types Packs/Day Years [...] LEATHA CARRILLO - [facility] at [facility] [address] [facility] [address] [place] [phone] Brenda Clay MD [address] [facility] [address] [place] [address] 04/15/2026 10:00 AM EDT Office Visit LEATHA [facility] at [facility] [address] [facility] [address] [place] [address] Sena Dominguez PA [address] [facility] [place] [address] documented as of this encounter Visit Diagnoses Not on filedocumented in this encounter Care Teams Combustion Analyst Relationship Specialty Start Date End Date Meme Steel MD [address] [place] [address] 105 [place] [address] PCP - General Pediatrics 06/05/18 04/25/22 No Pcp, Pcp PCP - General 06/08/22 07/19/22 Guadalupe Mcbride MD PCP - General Family Medicine 07/20/22 11/01/23 Sena Dominguez PA [address] [place] [address] [place] [address] PCP - BRADY Physician Hand Model 11/02/23 Levy Barry MD [address] [place] [address] [place] [address] PCP - General Family Medicine 12/20/23 documented as of this encounter
--- OUTSIDE RECORDS SUMMARY | 2025-08-14 15:14 | XMS_ITS | Encounter Summary ---
Author Organization [facility] work ([facility]) Address [address] [facility] [address] [facility] [address] [place] [address] Care Team Providers Care Search Marketing Specialist Name Role Phone Meme Steel MD Primary Care Provider [phone] No Pcp, Pcp Primary Care Provider Unavailabl Guadalupe Bardales MD Primary Care Provider [phone] Sena Dominguez Unavailable [phone] Levy Barry MD Primary Care Provider Unavailab le Source Comments The information that you have received may contain highly confidential and/or federally protected health information. This information has been disclosed to you from records protected by [facility]. The law prohibits you from [...] error, please contact the sender immediately.[facility] ([facility]) Encounter Details Date Type Department Care Team (Late st Contact Info) Description 2004 Historical Note [facility] LogiAnalytics.[email or web address] System Devyn Vásquez MD [address] [place] [address] [phone] Social History Tobacco Use Types Packs/Day Years [...] CARRILLO - [facility] at [facility] [address] [facility] [address] [place] [phone] Brenda Clay MD [address] [facility] [address] [place] [address] 04/15/2026 10:00 AM EDT Office Visit LEATHA [facility] at [facility] + [facility] [address] [facility] [address] [place] [address] Sena Dominguez PA [address] [facility] [place] [address] documented as of this encounter Visit Diagnoses Not on filedocumented in this encounter Care Teams Search Marketing Specialist Relationship Specialty Start Date End Date Meme Steel MD [address] [place] [address] 105 [place] [address] PCP - General Pediatrics 06/05/18 04/25/22 No Pcp, Pcp PCP - General 06/08/22 07/19/22 Guadalupe Mcbride MD PCP - General Family Medicine 07/20/22 11/01/23 Sena Dominguez PA [address] [place] [address] [place] [address] PCP - BRADY Physician Environmental Services Director 11/02/23 Levy Barry MD [address] [place] [address] [place] [address] PCP - General Family Medicine 12/20/23 documented as of this encounter
--- OUTSIDE RECORDS SUMMARY | 2025-08-14 15:14 | XMS_ITS | Encounter Summary ---
Author Organization [facility] work ([facility]) Address [address] [facility] [address] [place] [address] Care Team Providers Care Plate Maker Name Role Phone Meme Steel MD Primary Care Provider [phone] Pcp, Pcp Primary Care Provider Unavailabl Guadalupe Bardales MD Primary Care Provider [phone] Sena Dominguez Unavailable [phone] Levy Barry MD Primary Care Provider Unavailab le Source Comments The information that you have received may contain highly confidential and/or federally protected health information. This information has been disclosed to you from records protected by [facility]. The law prohibits you [...] please contact the sender immediately.[facility] ([facility]) Encounter Details Date Type Department Care Team (Late st Contact Info) Description 2004 Historical Note [facility] Vycon System Devyn Vásquez MD [address] [place] [address] [phone] Social History Tobacco Use Types Packs/Day [...] LEATHA CARRILLO - [facility] [address] [facility] [address] [place] [phone] Brenda Clay MD [address] [facility] [address] [place] [address] 04/15/2026 10:00 AM EDT Office Visit LEATHA [facility] at [facility] + [facility] [address] [facility] [address] [place] [address] Sena Dominguez PA [address] [facility] [place] [address] documented as of this encounter Visit Diagnoses Not on filedocumented in this encounter Care Teams Plate Maker Relationship Specialty Start Date End Date Meme Steel MD [address] [place] [address] 105 [place] [address] PCP - General Pediatrics 06/05/18 04/25/22 No Pcp, Pcp PCP - General 06/08/22 07/19/22 Guadalupe Mcbride MD PCP - General Family Medicine 07/20/22 11/01/23 Sena Dominguez PA [address] [place] [address] [place] [address] PCP - BRADY Physician Lumber Stacker Driver 11/02/23 Levy Barry MD [address] [place] [address] [place] [address] PCP - General Family Medicine 12/20/23 documented as of this encounter
--- OUTSIDE RECORDS SUMMARY | 2025-08-14 15:14 | XMS_ITS | Encounter Summary ---
Author Organization [facility] work ([facility]) Address [address] [facility] [address] [place] [address] Care Team Providers Care Plant Accountant Name Role Phone Meme Steel MD Primary Care Provider [phone] No Pcp, Pcp Primary Care Provider Unavailabl Guadalupe Bardales MD Primary Care Provider [phone] Sena Dominguez Unavailable [phone] Levy Barry MD Primary Care Provider Unavailab le Source Comments The information that you have received may contain highly confidential and/or federally protected health information. This information has been disclosed to you from records protected by [facility]. The law prohibits you [...] please contact the sender immediately.[facility] ([facility]) Encounter Details Date Type Department Care Team (Late st Contact Info) Description 2004 Historical Note [facility] Metricly System Devyn Vásquez MD [address] [place] [address] [phone] Social History Tobacco Use Types Packs/Day Years [...] LEATHA CARRILLO - [facility] [address] [facility] [address] [place] [phone] Brenda Clay MD [address] [facility] [address] [place] [address] 04/15/2026 10:00 AM EDT Office Visit LE[facility]HA [facility] at [facility] + [facility] [address] [facility] [address] [place] [address] Sena Dominguez PA [address] [facility] [place] [address] documented as of this encounter Visit Diagnoses Not on filedocumented in this encounter Care Teams Plant Accountant Relationship Specialty Start Date End Date Meme Steel MD [address] [place] [address] 105 [place] [address] PCP - General Pediatrics 06/05/18 04/25/22 No Pcp, Pcp PCP - General 06/08/22 07/19/22 Guadalupe Mcbride MD PCP - General Family Medicine 07/20/22 11/01/23 Sena Dominguez PA [address] [place] [address] [place] [address] PCP - BRADY Physician Meat Supervisor 11/02/23 Levy Barry MD [address] [place] [address] [place] [address] PCP - General Family Medicine 12/20/23 documented as of this encounter
--- OUTSIDE RECORDS SUMMARY | 2025-08-14 15:14 | XMS_ITS | Encounter Summary ---
Author Organization [facility] work ([facility]) Address [address] [place] [address] Care Team Providers Care Manager Dish Name Role Phone Meme Steel MD Primary Care Provider [phone] Pcp, Pcp Primary Care Provider Unavailabl Guadalupe Bardales MD Primary Care Provider [phone] Sena Dominguez Unavailable Levy Barry MD Primary Care Provider Unavailab le Source Comments The information that you have received may contain highly confidential and/or federally protected health information. This information has been disclosed to you from records protected by [facility]. The law prohibits you [...] contact the sender immediately.[facility] ([facility]) Encounter Details Date Type Department Care Team (Late st Contact Info) Description 2004 Historical Note [facility] [employer] [facility] Devyn Vásquez MD [address] [place] [address] [phone] Social History Tobacco Use Types Packs/Day Years [...] LEATHA CARRILLO - [facility] at [facility] [address] [facility] [address] [place] [phone] Brenda Clay MD [address] [facility] [address] [place] [address] 04/15/2026 10:00 AM EDT Office Visit [facility]HA [facility] at [facility] + [facility] [address] [facility] [address] [place] [address] Sena Dominguez PA [address] [facility] [place] [address] documented as of this encounter Visit Diagnoses Not on filedocumented in this encounter Care Teams Manager Dish Relationship Specialty Start Date End Date Meme Steel MD [address] [place] [address] 105 [place] [address] PCP - General Pediatrics 06/05/18 04/25/22 No Pcp, Pcp PCP - General 06/08/22 07/19/22 Guadalupe Mcbride MD PCP - General Family Medicine 07/20/22 11/01/23 Sena Dominguez PA [address] [place] [address] [place] [address] PCP - BRADY Physician Ladle Watcher 11/02/23 Levy Barry MD [address] [place] [address] [place] [address] PCP - General Family Medicine 12/20/23 documented as of this encounter
--- OUTSIDE RECORDS SUMMARY | 2025-08-14 15:14 | XMS_ITS | Encounter Summary ---
Author Organization [facility] work ([facility]) Address [address] [place] [address] Care Team Providers Care Professor Of Public Administration Name Role Phone Meme Steel MD Primary Care Provider [phone] Pcp, Pcp Primary Care Provider Unavailabl Guadalupe Bardales MD Primary Care Provider Sena Dominguez Unavailable [phone] Levy Barry MD Primary Care Provider Unavailab le Source Comments The information that you have received may contain highly confidential and/or federally protected health information. This information has been disclosed to you from records protected by [facility]. The law prohibits you from [...] immediately.[facility] ([facility]) Encounter Details Date Type Department Care Team (Late st Contact Info) Description 2004 Historical Note [facility] [employer] [facility] Devyn Vásquez MD [address] [place] [address] [phone] Social History Tobacco Use Types Packs/Day Years [...] - [facility] at [facility] [address] [facility] [address] [place] [phone] Brenda Clay MD [address] [facility] [address] [place] [address] 04/15/2026 10:00 AM EDT Office Visit [facility]HA [facility] at [facility] + [facility] [address] [facility] [address] [place] [address] Sena Dominguez PA [address] [facility] [place] [address] documented as of this encounter Visit Diagnoses Not on filedocumented in this encounter Care Teams Professor Of Public Administration Relationship Specialty Start Date End Date Meme Steel MD [address] [place] [address] 105 [place] [address] PCP - General Pediatrics 06/05/18 04/25/22 No Pcp, Pcp PCP - General 06/08/22 07/19/22 Guadalupe Mcbride MD PCP - General Family Medicine 07/20/22 11/01/23 Sena Dominguez PA [address] [place] [address] [place] [address] PCP - BRADY Physician Manufacturing Scheduler 11/02/23 Levy Barry MD [address] [place] [address] [place] [address] PCP - General Family Medicine 12/20/23 documented as of this encounter
--- OUTSIDE RECORDS SUMMARY | 2025-08-14 15:14 | XMS_ITS | Encounter Summary ---
Author Organization [facility] work ([facility]) Address [address] [place] [address] Care Team Providers Care Sumo Wrestler Name Role Phone Meme Steel MD Primary Care Provider [phone] Pcp, Pcp Primary Care Provider Unavailabl Guadalupe Bardales MD Primary Care Provider [phone] Sena Dominguez Unavailable Levy Barry MD Primary Care Provider Unavailab le Source Comments The information that you have received may contain highly confidential and/or federally protected health information. This information has been disclosed to you from records protected by [facility]. The law prohibits you [...] please contact the sender immediately.[facility] ([facility]) Encounter Details Date Type Department Care Team (Late st Contact Info) Description 05/29/2006 Historical Note [facility] [employer] [facility] Devyn Vásquez MD [address] [place] [address] [phone] Social History Tobacco Use Types Packs/Day Years [...] LEATHA CARRILLO - [facility] at [facility] [address] [facility] [address] [place] [phone] Brenda Clay MD [address] [facility] [address] [place] [address] 04/15/2026 10:00 AM EDT Office Visit LEATHA [facility] at [facility] + [facility] [address] [facility] [address] [place] [address] Sena Dominguez PA [address] [facility] [place] [address] documented as of this encounter Visit Diagnoses Not on filedocumented in this encounter Care Teams Sumo Wrestler Relationship Specialty Start Date End Date Meme Steel MD [address] [place] [address] 105 [place] [address] PCP - General Pediatrics 06/05/18 04/25/22 No Pcp, Pcp PCP - General 06/08/22 07/19/22 Guadalupe Mcbride MD PCP - General Family Medicine 07/20/22 11/01/23 Sena Dominguez PA [address] [place] [address] [place] [address] PCP - BRADY Physician Guest Services Representative 11/02/23 Levy Barry MD [address] [place] [address] [place] [address] PCP - General Family Medicine 12/20/23 documented as of this encounter
--- OUTSIDE RECORDS SUMMARY | 2025-08-14 15:14 | XMS_ITS | Encounter Summary ---
Author Organization [facility] work ([facility]) Address [address] [place] [address] Care Team Providers Care Automobile Inspector Name Role Phone Meme Steel MD Primary Care Provider [phone] Pcp, Pcp Primary Care Provider Unavailabl Guadalupe Bardales MD Primary Care Provider [phone] Sena Dominguez Unavailable [phone] Levy Barry MD Primary Care Provider Unavailab le Source Comments The information that you have received may contain highly confidential and/or federally protected health information. This information has been disclosed to you from records protected by [facility]. The law prohibits you from [...] immediately.[facility] ([facility]) Encounter Details Date Type Department Care Team (Late st Contact Info) Description 2004 Historical Note [facility] [employer] [facility] Devyn Vásquez MD [address] [place] [address] [phone] Social History Tobacco Use Types Packs/Day Years [...] CARRILLO - [facility] at [facility] [address] [facility] [address] [place] [phone] Brenda Clay MD [address] [facility] [address] [place] [address] 04/15/2026 10:00 AM EDT Office Visit [facility] + [facility] [address] [facility] [address] [place] [address] Sena Dominguez PA [address] [facility] [place] [address] documented as of this encounter Visit Diagnoses Not on filedocumented in this encounter Care Teams Automobile Inspector Relationship Specialty Start Date End Date Meme Steel MD [address] [place] [address] 105 [place] [address] PCP - General Pediatrics 06/05/18 04/25/22 No Pcp, Pcp PCP - General 06/08/22 07/19/22 Guadalupe Mcbride MD PCP - General Family Medicine 07/20/22 11/01/23 Sena Dominguez PA [address] [place] [address] [place] [address] PCP - BRADY Physician Ash Worker 11/02/23 Levy Barry MD [address] [place] [address] [place] [address] PCP - General Family Medicine 12/20/23 documented as of this encounter
--- OUTSIDE RECORDS SUMMARY | 2025-08-14 15:14 | XMS_ITS | Encounter Summary ---
Author Organization [facility] work ([facility]) Address [address] [place] [address] Care Team Providers Care Visual Merchandising Director Name Role Phone Meme Setel MD Primary Care Provider [phone] Pcp, Pcp Primary Care Provider Unavailabl Guadalupe Bardales MD Primary Care Provider [phone] Sena Dominguez Unavailable [phone] Levy Barry MD Primary Care Provider Unavailab le Source Comments The information that you have received may contain highly confidential and/or federally protected health information. This information has been disclosed to you from records protected by [facility]. The law prohibits you from making [...] error, please contact the sender immediately.[facility] ([facility]) Encounter Details Date Type Department Care Team (Late st Contact Info) Description 2004 Historical Note [facility] [employer] [facility] Devyn Vásquez MD [address] [place] [address] [phone] Social History Tobacco Use Types Packs/Day Years [...] - [facility] [address] [facility] [address] [place] [phone] Brenda Clay MD [address] [facility] [address] [place] [address] 04/15/2026 10:00 AM EDT Office Visit LE[facility]HA [facility] at [facility] [address] [facility] [address] [place] [address] Sena Dominguez PA [address] [facility] [place] [address] documented as of this encounter Visit Diagnoses Not on filedocumented in this encounter Care Teams Visual Merchandising Director Relationship Specialty Start Date End Date Meme Steel MD [address] [place] [address] 105 [place] [address] PCP - General Pediatrics 06/05/18 04/25/22 No Pcp, Pcp PCP - General 06/08/22 07/19/22 Guadalupe Mcbride MD PCP - General Family Medicine 07/20/22 11/01/23 Sena Dominguez PA [address] [place] [address] [place] [address] PCP - BRADY Physician Rug Cleaner Helper 11/02/23 Levy Barry MD [address] [place] [address] [place] [address] PCP - General Family Medicine 12/20/23 documented as of this encounter
--- OUTSIDE RECORDS SUMMARY | 2025-08-14 15:14 | XMS_ITS | Encounter Summary ---
Author Organization [facility] work ([facility]) Address [address] [place] [address] Care Team Providers Care Line O Scribe Operator Name Role Phone Meme Steel MD Primary Care Provider [phone] Pcp, Pcp Primary Care Provider Unavailabl Guadalupe Bardales MD Primary Care Provider [phone] Sena Dominguez Unavailable [phone] Levy Barry MD Primary Care Provider Unavailab le Source Comments The information that you have received may contain highly confidential and/or federally protected health information. This information has been disclosed to you from records protected by [facility]. The law prohibits you from [...] error, please contact the sender immediately.[facility] ([facility]) Encounter Details Date Type Department Care Team (Late st Contact Info) Description 2004 Historical Note [facility] [employer] [facility] Devyn Vásquez MD [address] [place] [address] [phone] Social History Tobacco Use Types Packs/Day Years [...] Visit LEATHA CARRILLO - [facility] [address] [facility] [address] [place] [phone] Brenda Clay MD [address] [facility] [address] [place] [address] 04/15/2026 10:00 AM EDT Office Visit LEATHA Primary [facility] at [facility] + [facility] [address] [facility] [address] [place] [address] Sena Dominguez PA [address] [facility] [place] [address] documented as of this encounter Visit Diagnoses Not on filedocumented in this encounter Care Teams Line O Scribe Operator Relationship Specialty Start Date End Date Meme Steel MD [address] [place] [address] 105 [place] [address] PCP - General Pediatrics 06/05/18 04/25/22 No Pcp, Pcp PCP - General 06/08/22 07/19/22 Guadalupe Mcbride MD PCP - General Family Medicine 07/20/22 11/01/23 Sena Dominguez PA [address] [place] [address] [place] [address] PCP - BRADY Physician Criminal Justice Program Director 11/02/23 Levy Barry MD [address] [place] [address] [place] [address] PCP - General Family Medicine 12/20/23 documented as of this encounter
--- OUTSIDE RECORDS SUMMARY | 2025-08-14 15:14 | XMS_ITS | Encounter Summary ---
Author Organization [facility] work ([facility]) Address [address] [place] [address] Care Team Providers Care Painter Helper Name Role Phone Meme Steel MD Primary Care Provider [phone] Pcp, Pcp Primary Care Provider Unavailabl Guadalupe Bardales MD Primary Care Provider [phone] Sena Dominguez Unavailable Levy Barry MD Primary Care Provider Unavailab le Source Comments The information that you have received may contain highly confidential and/or federally protected health information. This information has been disclosed to you from records protected by [facility]. The law prohibits you from making [...] error, please contact the sender immediately.[facility] ([facility]) Encounter Details Date Type Department Care Team (Late st Contact Info) Description 2004 Historical Note [facility] [employer] [facility] Devyn Vásquez MD [address] [place] [address] [phone] Social History Tobacco Use Types Packs/Day Years [...] LEATHA CARRILLO - [facility] at [facility] [address] [facility] [address] [place] [phone] Brenda Clay MD [address] [facility] [address] [place] [address] 04/15/2026 10:00 AM EDT Office Visit LEATHA [facility] at [place] + [facility] [address] [facility] [address] [place] [address] Sena Dominguez PA [address] [facility] [place] [address] documented as of this encounter Visit Diagnoses Not on filedocumented in this encounter Care Teams Painter Helper Relationship Specialty Start Date End Date Meme Steel MD [address] [place] [address] 105 [place] [address] PCP - General Pediatrics 06/05/18 04/25/22 No Pcp, Pcp PCP - General 06/08/22 07/19/22 Guadalupe Mcbride MD PCP - General Family Medicine 07/20/22 11/01/23 Sena Dominguez PA [address] [place] [address] [place] [address] PCP - BRADY Physician Social Scientist 11/02/23 Levy Barry MD [address] [place] [address] [place] [address] PCP - General Family Medicine 12/20/23 documented as of this encounter
--- OUTSIDE RECORDS SUMMARY | 2025-08-14 15:14 | XMS_ITS | Encounter Summary ---
Author Organization [facility] work ([facility]) Address [address] [address] [place] [address] Care Team Providers Care Shipmaster Name Role Phone Meme Steel MD Primary Care Provider [phone] Pcp, Pcp Primary Care Provider Unavailabl Guadalupe Bardales MD Primary Care Provider [phone] Sena Dominguez Unavailable [phone] Levy Barry MD Primary Care Provider Unavailab le Source Comments The information that you have received may contain highly confidential and/or federally protected health information. This information has been disclosed to you from records protected by [facility]. The law prohibits you from [...] sender immediately.[facility] ([facility]) Encounter Details Date Type Department Care Team (Late st Contact Info) Description 06/01/2006 Historical Note [facility] [employer] [facility] Devyn Vásquez MD [address] [place] [address] [phone] Social History Tobacco Use Types Packs/Day Years [...] Visit LEATHA CARRILLO - [facility] at [facility] [address] [facility] [address] [place] [phone] Brenda Clay MD [address] [facility] [address] [place] [address] 04/15/2026 10:00 AM EDT Office Visit LEATHA Primary Care at [facility] + [facility] [address] [facility] [address] [place] [address] Sena Dominguez PA [address] [facility] [place] [address] documented as of this encounter Visit Diagnoses Not on filedocumented in this encounter Care Teams Shipmaster Relationship Specialty Start Date End Date Meme Steel MD [address] [place] [address] 105 [place] [address] PCP - General Pediatrics 06/05/18 04/25/22 No Pcp, Pcp PCP - General 06/08/22 07/19/22 Guadalupe Mcbride MD PCP - General Family Medicine 07/20/22 11/01/23 Sena Dominguez PA [address] [place] [address] [place] [address] PCP - BRADY Physician Senior Branch Manager 11/02/23 Levy Barry MD [address] [place] [address] [place] [address] PCP - General Family Medicine 12/20/23 documented as of this encounter
--- OUTSIDE RECORDS SUMMARY | 2025-08-14 15:15 | XMS_ITS | Encounter Summary ---
Author Organization [facility] work ([facility]) Address [address] [place] [address] Care Team Providers Care Surveyor Mine Name Role Phone Meme Steel MD Primary Care Provider [phone] Pcp, Pcp Primary Care Provider Unavailabl Guadalupe Bardales MD Primary Care Provider [phone] Sena Dominguez Unavailable [phone] Levy Barry MD Primary Care Provider Unavailab le Source Comments The information that you have received may contain highly confidential and/or federally protected health information. This information has been disclosed to you from records protected by [facility]. The law prohibits you from [...] error, please contact the sender immediately.[facility] ([facility]) Encounter Details Date Type Department Care Team (Late st Contact Info) Description 02/08/2006 Historical Note [facility] [employer] System Devyn Vásquez MD [address] [place] [address] [phone] Social History Tobacco Use Types Packs/Day Years [...] CARRILLO - [facility] [address] [facility] [address] [place] [phone] Brenda Clay MD [address] [facility] [address] [place] [phone] 04/15/2026 10:00 AM EDT Office Visit LEATHA Primary [facility] at [facility] + [facility] [address] [facility] [address] [place] [address] Sena Dominguez PA [address] [facility] [place] [address] documented as of this encounter Visit Diagnoses Not on filedocumented in this encounter Care Teams Surveyor Mine Relationship Specialty Start Date End Date Meme Steel MD [address] [place] [address] 105 [place] [address] PCP - General Pediatrics 06/05/18 04/25/22 No Pcp, Pcp PCP - General 06/08/22 07/19/22 Guadalupe Mcbride MD PCP - General Family Medicine 07/20/22 11/01/23 Sena Dominguez PA [address] [place] [address] [place] [address] PCP - BRADY Physician Junior Recruiter 11/02/23 Levy Barry MD [address] [place] [address] [place] [address] PCP - General Family Medicine 12/20/23 documented as of this encounter
--- OUTSIDE RECORDS SUMMARY | 2025-08-14 15:15 | XMS_ITS | Encounter Summary ---
Author Organization [facility] work ([facility] Address [address] [place] [address] Care Team Providers Care Human Resources Administrator Name Role Phone Meme Steel MD Primary Care Provider [phone] Pcp, Pcp Primary Care Provider Unavailabl Guadalupe Bardales MD Primary Care Provider [phone] Sena Dominguez Unavailable [phone] Levy Barry MD Primary Care Provider Unavailab le Source Comments The information that you have received may contain highly confidential and/or federally protected health information. This information has been disclosed to you from records protected by [facility]. The law prohibits you [...] contact the sender immediately.[facility] ([facility] Encounter Details Date Type Department Care Team (Late st Contact Info) Description 06/14/2007 Historical Note [facility] [employer] System Devyn Vásquez MD [address] [place] [address] [phone] Social History Tobacco Use Types Packs/Day Years [...] [facility] at [facility] [address] [facility] [address] [place] [phone] Brenda Clay MD [address] [facility] [address] [place] [address] 04/15/2026 10:00 AM EDT Office Visit LE[facility]HA [facility] at [facility] + [facility] [address] [facility] [address] [place] [address] Sena Dominguez PA [address] [facility] [place] [address] documented as of this encounter Visit Diagnoses Not on filedocumented in this encounter Care Teams Human Resources Administrator Relationship Specialty Start Date End Date Meme Steel MD [address] [place] [address] 105 [place] [address] PCP - General Pediatrics 06/05/18 04/25/22 No Pcp, Pcp PCP - General 06/08/22 07/19/22 Guadalupe Mcbride MD PCP - General Family Medicine 07/20/22 11/01/23 Sena Dominguez PA [address] [place] [address] [place] [address] PCP - BRADY Physician Flower Cutter 11/02/23 Levy Barry MD [address] [place] [address] [place] [address] PCP - General Family Medicine 12/20/23 documented as of this encounter
--- OUTSIDE RECORDS SUMMARY | 2025-08-14 15:15 | XMS_ITS | Encounter Summary ---
Author Organization [facility] work ([facility]) Address [address] [place] [address] Care Team Providers Care Assistant Women'S Tennis Coach Name Role Phone Meme Steel MD Primary Care Provider [phone] Pcp, Pcp Primary Care Provider Unavailabl Guadalupe Bardales MD Primary Care Provider [phone] Sena Dominguez Unavailable [phone] Levy Barry MD Primary Care Provider Unavailab le Source Comments The information that you have received may contain highly confidential and/or federally protected health information. This information has been disclosed to you from records protected by [facility]. The law prohibits you from [...] contact the sender immediately.[facility] ([facility]) Encounter Details Date Type Department Care Team (Late st Contact Info) Description 05/21/2012 Historical Note [facility] [employer] System Devyn Vásquez MD [address] [place] [address] [phone] Social History Tobacco Use Types Packs/Day Years [...] LEATHA CARRILLO - [facility] [address] [place] [phone] Brenda Clay MD [address] [facility] [address] [place] [address] 04/15/2026 10:00 AM EDT Office Visit [facility] + [facility] [address] [place] [address] Sena Dominguez PA [address] [place] [address] documented as of this encounter Visit Diagnoses Not on filedocumented in this encounter Care Teams Assistant Women'S Tennis Coach Relationship Specialty Start Date End Date Meme Steel MD [address] [place] [address] [place] [address] PCP - General Pediatrics 06/05/18 04/25/22 No Pcp, Pcp PCP - General 06/08/22 07/19/22 Guadalupe Mcbride MD PCP - General Family Medicine 07/20/22 11/01/23 Sena Dominguez PA [address] [place] [address] [place] [address] PCP - BRADY Physician Tape Folding Machine Operator 11/02/23 Levy Barry MD [address] [place] [address] [place] [address] PCP - General Family Medicine 12/20/23 documented as of this encounter
--- OUTSIDE RECORDS SUMMARY | 2025-08-14 15:15 | XMS_ITS | Encounter Summary ---
Author Organization [facility] work ([facility]) Address [address] [place] [address] Care Team Providers Care Neonatal Surgeon Name Role Phone Meme Steel MD Primary Care Provider [phone] Pcp, Pcp Primary Care Provider Unavailabl Guadalupe Bardales MD Primary Care Provider Sena Dominguez Unavailable [phone] Levy Barry MD Primary Care Provider Unavailab le Source Comments The information that you have received may contain highly confidential and/or federally protected health information. This information has been disclosed to you from records protected by [facility]. The law prohibits you [...] please contact the sender immediately.[facility] ([facility]) Encounter Details Date Type Department Care Team (Late st Contact Info) Description 06/14/2007 Historical Note [facility] [employer] System Devyn Vásquez MD [address] [place] [address] [phone] Social History Tobacco Use Types Packs/Day Years [...] CARRILLO - [facility] [address] [place] [phone] Brenda Clay MD [address] [facility] [address] [place] [address] 04/15/2026 10:00 AM EDT Office Visit [facility] at [facility] + [facility] [address] [place] [address] Sena Dominguez PA [address] [facility] [place] [address] documented as of this encounter Visit Diagnoses Not on filedocumented in this encounter Care Teams Neonatal Surgeon Relationship Specialty Start Date End Date Meme Steel MD [address] [place] [address] 105 [place] [address] PCP - General Pediatrics 06/05/18 04/25/22 No Pcp, Pcp PCP - General 06/08/22 07/19/22 Guadalupe Mcbride MD PCP - General Family Medicine 07/20/22 11/01/23 Sena Dominguez PA [address] [place] [address] [place] [address] PCP - BRADY Physician Charter School Executive Director 11/02/23 Levy Barry MD [address] [place] [address] [place] [address] PCP - General Family Medicine 12/20/23 documented as of this encounter
--- OUTSIDE RECORDS SUMMARY | 2025-08-14 15:15 | XMS_ITS | Encounter Summary ---
Author Organization [facility] work ([facility]) Address [address] [place] [address] Care Team Providers Care Tool Die Maker Name Role Phone Meme Steel MD Primary Care Provider No Pcp, Pcp Primary Care Provider Unavailabl Guadalupe Bardales MD Primary Care Provider [phone] Sena Dominguez Unavailable [phone] Levy Barry MD Primary Care Provider Unavailab le Source Comments The information that you have received may contain highly confidential and/or federally protected health information. This information has been disclosed to you from records protected by [email or web address]. The law prohibits you from [...] please contact the sender immediately.[facility] ([facility]) Encounter Details Date Type Department Care Team (Late st Contact Info) Description 01/26/2006 Historical Note [facility] [employer] System Devyn Vásquez MD [address] [place] [address] [phone] Social History Tobacco Use Types Packs/Day Years [...] LEATHA CARRILLO - [facility] [address] [facility] [facility] [address] [place] [phone] Brenda Clay MD [address] [facility] [address] [place] [address] 04/15/2026 10:00 AM EDT Office Visit LE[facility]HA [facility] at [facility] + [facility] [address] [place] [address] Sena Dominguez PA [address] [facility] [place] [address] documented as of this encounter Visit Diagnoses Not on filedocumented in this encounter Care Teams Tool Die Maker Relationship Specialty Start Date End Date Meme Steel MD [address] [place] [address] 105 [place] [address] PCP - General Pediatrics 06/05/18 04/25/22 No Pcp, Pcp PCP - General 06/08/22 07/19/22 Guadalupe Mcbride MD PCP - General Family Medicine 07/20/22 11/01/23 Sena Dominguez PA [address] [place] [address] [place] [address] PCP - BRADY Physician Maintenance Worker Swimming Pool 11/02/23 Levy Barry MD [address] [place] [address] [place] [address] PCP - General Family Medicine 12/20/23 documented as of this encounter
--- OUTSIDE RECORDS SUMMARY | 2025-08-14 15:15 | XMS_ITS | Encounter Summary ---
Author Organization [facility] work ([facility]) Address [address] [place] [address] Care Team Providers Care Director Social Name Role Phone Meme Steel MD Primary Care Provider [phone] Pcp, Pcp Primary Care Provider Unavailabl Guadalupe Bardales MD Primary Care Provider [phone] Sena Dominguez Unavailable [phone] Levy Barry MD Primary Care Provider Unavailab le Source Comments The information that you have received may contain highly confidential and/or federally protected health information. This information has been disclosed to you from records protected by [facility]. The law prohibits you from [...] please contact the sender immediately.[facility] ([facility]) Encounter Details Date Type Department Care Team (Late st Contact Info) Description 05/24/2012 Historical Note [facility] [employer] System Devyn Vásquez MD [address] [place] [address] [phone] Social History Tobacco Use Types Packs/Day Years [...] Visit LEATHA CARRILLO - [facility] [address] [place] [phone] Brenda Clay MD [address] [facility] [address] [place] [address] 04/15/2026 10:00 AM EDT Office Visit [facility]HA [facility] at [facility] + [facility] [address] [place] [address] Sena Dominguez PA [address] [facility] [place] [address] documented as of this encounter Visit Diagnoses Not on filedocumented in this encounter Care Teams Director Social Relationship Specialty Start Date End Date Meme Steel MD [address] [place] [address] 105 [place] [address] PCP - General Pediatrics 06/05/18 04/25/22 No Pcp, Pcp PCP - General 06/08/22 07/19/22 Guadalupe Mcbride MD PCP - General Family Medicine 07/20/22 11/01/23 Sena Dominguez PA [address] [place] [address] [place] [address] PCP - BRADY Physician Finish Machine Tender 11/02/23 Levy Barry MD [address] [place] [address] [place] [address] PCP - General Family Medicine 12/20/23 documented as of this encounter
--- OUTSIDE RECORDS SUMMARY | 2025-08-14 15:15 | XMS_ITS | Encounter Summary ---
Author Organization [facility] work ([facility]) Address [address] [place] [address] Care Team Providers Care Director Case Name Role Phone Meme Steel MD Primary Care Provider [phone] Pcp, Pcp Primary Care Provider Unavailabl Guadalupe Bardales MD Primary Care Provider [phone] Sena Dominguez Unavailable [phone] Levy Barry MD Primary Care Provider Unavailab le Source Comments The information that you have received may contain highly confidential and/or federally protected health information. This information has been disclosed to you from records protected by [facility]. The law prohibits you [...] sender immediately.[facility] ([facility]) Encounter Details Date Type Department Care Team (Late st Contact Info) Description 01/13/2006 Historical Note [facility] [employer] System Devyn Vásquez MD [address] [place] [address] [phone] Social History Tobacco Use Types Packs/Day Years [...] - [facility] [address] [place] [phone] Brenda Clay MD [address] [facility] [address] [place] [address] 04/15/2026 10:00 AM EDT Office Visit [facility]HA [facility] at [facility] + [facility] [address] [facility] [facility] [address] [place] [address] Sena Dominguez PA [address] [facility] [place] [address] documented as of this encounter Visit Diagnoses Not on filedocumented in this encounter Care Teams Director Case Relationship Specialty Start Date End Date Meme Steel MD [address] [place] [address] 105 [place] [address] PCP - General Pediatrics 06/05/18 04/25/22 No Pcp, Pcp PCP - General 06/08/22 07/19/22 Guadalupe Mcbride MD PCP - General Family Medicine 07/20/22 11/01/23 Sena Dominguez PA [address] [place] [address] [place] [address] PCP - BRADY Physician Casino Cage Manager 11/02/23 Levy Barry MD [address] [place] [address] [place] [address] PCP - General Family Medicine 12/20/23 documented as of this encounter
--- OUTSIDE RECORDS SUMMARY | 2025-08-14 15:15 | XMS_ITS | Encounter Summary ---
Author Organization [facility] work ([facility]) Address [address] [place] [address] Care Team Providers Care Title Searcher Name Role Phone Meme Steel MD Primary Care Provider [phone] Pcp, Pcp Primary Care Provider Unavailabl Guadalupe Bardales MD Primary Care Provider Sena Dominguez Unavailable [phone] Levy Barry MD Primary Care Provider Unavailab le Source Comments The information that you have received may contain highly confidential and/or federally protected health information. This information has been disclosed to you from records protected by [facility]. The law prohibits you from [...] Contact Info) Description 01/26/2006 Historical Note [facility] [employer] System Devyn Vásquez MD [address] [place] [address] [phone] Social History Tobacco Use Types Packs/Day Years [...] LEATHA CARRILLO - [facility] [address] [facility] [address] [place] [phone] Brenda Clay MD [address] [facility] [address] [place] [address] 04/15/2026 10:00 AM EDT Office Visit [facility]HA [facility] at [facility] + [facility] [address] [place] [address] Sena Dominguez PA [address] [facility] [place] [address] documented as of this encounter Visit Diagnoses Not on filedocumented in this encounter Care Teams Title Searcher Relationship Specialty Start Date End Date Meme Steel MD [address] [place] [address] 105 [place] [address] PCP - General Pediatrics 06/05/18 04/25/22 No Pcp, Pcp PCP - General 06/08/22 07/19/22 Guadalupe Mcbride MD PCP - General Family Medicine 07/20/22 11/01/23 Sena Dominguez PA [address] [place] [address] [place] [address] PCP - BRADY Physician Application Integration Engineer 11/02/23 Levy Barry MD [address] [place] [address] [place] [address] PCP - General Family Medicine 12/20/23 documented as of this encounter
--- OUTSIDE RECORDS SUMMARY | 2025-08-14 15:15 | XMS_ITS | Encounter Summary ---
Author Organization [facility] work ([facility]) Address [address] [place] [address] Care Team Providers Care Cylinder Head Assembler Name Role Phone Meme Steel MD Primary Care Provider [phone] Pcp, Pcp Primary Care Provider Unavailabl Guadalupe Bardales MD Primary Care Provider [phone] Sena Dominguez Unavailable [phone] Levy Barry MD Primary Care Provider Unavailab le Source Comments The information that you have received may contain highly confidential and/or federally protected health information. This information has been disclosed to you from records protected by [facility]. The law prohibits you from [...] sender immediately.[facility] ([facility]) Encounter Details Date Type Department Care Team (Late st Contact Info) Description 2004 Historical Note [facility] [employer] System Devyn Vásquez MD [address] [place] [address] [phone] Social History Tobacco Use Types Packs/Day Years [...] LEATHA CARRILLO - [facility] [address] [facility] [address] [place] [phone] Brenda Clay MD [address] [facility] [address] [place] [address] 04/15/2026 10:00 AM EDT Office Visit LE[facility]HA [facility] at [facility] + [facility] [address] [facility] [address] [place] [address] Sena Dominguez PA [address] [facility] [place] [address] documented as of this encounter Visit Diagnoses Not on filedocumented in this encounter Care Teams Cylinder Head Assembler Relationship Specialty Start Date End Date Meme Steel MD [address] [place] [address] 105 [place] [address] PCP - General Pediatrics 06/05/18 04/25/22 No Pcp, Pcp PCP - General 06/08/22 07/19/22 Guadalupe Mcbride MD PCP - General Family Medicine 07/20/22 11/01/23 Sena Dominguez PA [address] [place] [address] [place] [address] PCP - BRADY Physician Experimental Box Tester 11/02/23 Levy Barry MD [address] [place] [address] [place] [address] PCP - General Family Medicine 12/20/23 documented as of this encounter
--- OUTSIDE RECORDS SUMMARY | 2025-08-14 15:15 | XMS_ITS | Encounter Summary ---
Author Organization [facility] work ([facility]) Address [address] [place] [address] Care Team Providers Care Copy Manager Name Role Phone Meme Steel MD Primary Care Provider [phone] No Pcp, Pcp Primary Care Provider Unavailabl Guadalupe Bardales MD Primary Care Provider Sena Dominguez Unavailable [phone] Levy Barry MD Primary Care Provider Unavailab le Source Comments The information that you have received may contain highly confidential and/or federally protected health information. This information has been disclosed to you from records protected by [facility]. The law prohibits you from [...] please contact the sender immediately.[facility] ([facility]) Encounter Details Date Type Department Care Team (Late st Contact Info) Description 05/24/2012 Historical Note [facility] [employer] System Devyn Vásquez MD [address] [place] [address] [phone] Social History Tobacco Use Types Packs/Day Years [...] Visit LEATHA CARRILLO - [facility] [address] [facility] [address] [place] [phone] Brenda Clay MD [address] [facility] [address] [place] [address] 04/15/2026 10:00 AM EDT Office Visit LEATHA [facility] at [facility] + [facility] [address] [facility] [address] [place] [address] Sena Dominguez PA [address] [facility] [place] [address] documented as of this encounter Visit Diagnoses Not on filedocumented in this encounter Care Teams Copy Manager Relationship Specialty Start Date End Date Meme Steel MD [address] [place] [address] 105 [place] [address] PCP - General Pediatrics 06/05/18 04/25/22 No Pcp, Pcp PCP - General 06/08/22 07/19/22 Guadalupe Mcbride MD PCP - General Family Medicine 07/20/22 11/01/23 Sena Dominguez PA [address] [place] [address] [place] [address] PCP - BRADY Physician Recruitment Director 11/02/23 Levy Barry MD [address] [place] [address] [place] [address] PCP - General Family Medicine 12/20/23 documented as of this encounter
--- OUTSIDE RECORDS SUMMARY | 2025-08-14 15:15 | XMS_ITS | Encounter Summary ---
Author Organization [facility] work ([facility]) Address [address] [place] [address] Care Team Providers Care Fish Peddler Name Role Phone Meme Steel MD Primary Care Provider [phone] No Pcp, Pcp Primary Care Provider Unavailabl Guadalupe Bardales MD Primary Care Provider [phone] Sena Dominguez Unavailable Levy Barry MD Primary Care Provider Unavailab le Source Comments The information that you have received may contain highly confidential and/or federally protected health information. This information has been disclosed to you from records protected by [facility]. The law prohibits you from making [...] sender immediately.[facility] ([facility]) Encounter Details Date Type Department Care Team (Late st Contact Info) Description 09/16/2012 Historical Note [facility] [employer] System Devyn Vásquez MD [address] [place] [address] [phone] Social History Tobacco Use Types Packs/Day Years [...] Visit LEATHA CARRILLO - [facility] [address] [facility] [address] [place] [phone] Brenda Clay MD [address] [facility] [address] [place] [address] 04/15/2026 10:00 AM EDT Office Visit [facility]HA [facility] [address] [facility] [address] [place] [address] Sena Dominguez PA [address] [facility] [place] [address] documented as of this encounter Visit Diagnoses Not on filedocumented in this encounter Care Teams Fish Peddler Relationship Specialty Start Date End Date Meme Steel MD [address] [place] [address] 105 [place] [address] PCP - General Pediatrics 06/05/18 04/25/22 No Pcp, Pcp PCP - General 06/08/22 07/19/22 Guadalupe Mcbride MD PCP - General Family Medicine 07/20/22 11/01/23 Sena Dominguez PA [address] [place] [address] [place] [address] PCP - BRADY Physician Statue Maker 11/02/23 Levy Barry MD [address] [place] [address] [place] [address] PCP - General Family Medicine 12/20/23 documented as of this encounter
--- OUTSIDE RECORDS SUMMARY | 2025-08-14 15:15 | XMS_ITS | Encounter Summary ---
Author Organization [facility] work ([facility]) Address [address] [place] [address] Care Team Providers Care Automotive Service Management Teacher Name Role Phone Meme Steel MD Primary Care Provider [phone] No Pcp, Pcp Primary Care Provider Unavailabl Guadalupe Bardales MD Primary Care Provider [phone] Sena Dominguez Unavailable [phone] Levy Barry MD Primary Care Provider Unavailab le Source Comments The information that you have received may contain highly confidential and/or federally protected health information. This information has been disclosed to you from records protected by [facility]. The law prohibits you from [...] contact the sender immediately.[facility] ([facility]) Encounter Details Date Type Department Care Team (Late st Contact Info) Description 2004 Historical Note [facility] [employer] System Devyn Vásquez MD [address] [place] [address] [phone] Social History Tobacco Use Types Packs/Day Years [...] CARRILLO - [facility] [address] [facility] [address] [place] [phone] Brenda Clay MD [address] [facility] [address] [place] [address] 04/15/2026 10:00 AM EDT Office Visit [facility] + [facility] [address] [facility] [address] [place] [address] Sena Dominguez PA [address] [facility] [place] [address] documented as of this encounter Visit Diagnoses Not on filedocumented in this encounter Care Teams Automotive Service Management Teacher Relationship Specialty Start Date End Date Meme Steel MD [address] [place] [address] 105 [place] [address] PCP - General Pediatrics 06/05/18 04/25/22 No Pcp, Pcp PCP - General 06/08/22 07/19/22 Guadalupe Mcbride MD PCP - General Family Medicine 07/20/22 11/01/23 Sena Dominguez PA [address] [place] [address] [place] [address] PCP - BRADY Physician Crm Administrator 11/02/23 Levy Barry MD [address] [place] [address] [place] [address] PCP - General Family Medicine 12/20/23 documented as of this encounter
--- OUTSIDE RECORDS SUMMARY | 2025-08-14 15:15 | XMS_ITS | Encounter Summary ---
Author Organization [facility] work ([facility]) Address [address] [place] [address] Care Team Providers Care Livestock Yard Attendant Name Role Phone Meme Steel MD Primary Care Provider [phone] Pcp, Pcp Primary Care Provider Unavailabl Guadalupe Bardales MD Primary Care Provider [phone] Sena Dominguez Unavailable [phone] Levy Barry MD Primary Care Provider Unavailab le Source Comments The information that you have received may contain highly confidential and/or federally protected health information. This information has been disclosed to you from records protected by [facility]. The law prohibits you [...] Contact Info) Description 01/23/2006 Historical Note [facility] Stylr System Devyn Vásquez MD [address] [place] [address] [phone] Social History Tobacco Use Types Packs/Day Years [...] - [facility] at [facility] [address] [facility] [address] [place] [phone] Brenda Clay MD [address] [facility] [address] [place] [address] 04/15/2026 10:00 AM EDT Office Visit [facility] at [facility] + [facility] [address] [facility] [address] [place] [address] Sena Dominguez PA [address] [facility] [place] [address] documented as of this encounter Visit Diagnoses Not on filedocumented in this encounter Care Teams Livestock Yard Attendant Relationship Specialty Start Date End Date Meme Steel MD [address] [place] [address] 105 [place] [address] PCP - General Pediatrics 06/05/18 04/25/22 No Pcp, Pcp PCP - General 06/08/22 07/19/22 Guadalupe Mcbride MD PCP - General Family Medicine 07/20/22 11/01/23 Sena Dominguez PA [address] [place] [address] [place] [address] PCP - BRADY Physician Fixed Assets Accountant 11/02/23 Levy Barry MD [address] [place] [address] [place] [address] PCP - General Family Medicine 12/20/23 documented as of this encounter
--- OUTSIDE RECORDS SUMMARY | 2025-08-14 15:15 | XMS_ITS | Encounter Summary ---
Author Organization [facility] work ([facility]) Address [address] [place] [address] Care Team Providers Care Real Estate Executive Assistant Name Role Phone Meme Steel MD Primary Care Provider [phone] Pcp, Pcp Primary Care Provider Unavailabl Guadalupe Bardales MD Primary Care Provider [phone] Sena Dominguez Unavailable [phone] Levy Barry MD Primary Care Provider Unavailab le Source Comments The information that you have received may contain highly confidential and/or federally protected health information. This information has been disclosed to you from records protected by [facility]. The law prohibits you [...] contact the sender immediately.[facility] ([facility]) Encounter Details Date Type Department Care Team (Late st Contact Info) Description 05/24/2012 Historical Note [facility] Devyn Vásquez MD [address] [place] [address] [phone] Social History Tobacco Use Types Packs/Day Years [...] Office Visit LEATHA CARRILLO - [facility] [address] [facility] [address] [place] [phone] Brenda Clay MD [address] [facility] [address] [place] [address] 04/15/2026 10:00 AM EDT Office Visit [facility] at [facility] + [facility] [address] [facility] [facility] [address] [place] [address] Sena Dominguez PA [address] [facility] [place] [address] documented as of this encounter Visit Diagnoses Not on filedocumented in this encounter Care Teams Real Estate Executive Assistant Relationship Specialty Start Date End Date Meme Steel MD [address] [place] [address] 105 [place] [address] PCP - General Pediatrics 06/05/18 04/25/22 No Pcp, Pcp PCP - General 06/08/22 07/19/22 Guadalupe Mcbride MD PCP - General Family Medicine 07/20/22 11/01/23 Sena Dominguez PA [address] [place] [address] [place] [address] PCP - BRADY Physician Neurology Nurse 11/02/23 Levy Barry MD [address] [place] [address] [place] [address] PCP - General Family Medicine 12/20/23 documented as of this encounter
--- OUTSIDE RECORDS SUMMARY | 2025-08-14 15:15 | XMS_ITS | Encounter Summary ---
Author Organization [facility] work ([facility]) Address [address] [place] [address] Care Team Providers Care Driver Supervisor Name Role Phone Meme Steel MD Primary Care Provider [phone] Pcp, Pcp Primary Care Provider Unavailabl Guadalupe Bardales MD Primary Care Provider [phone] Sena Dominguez Unavailable [phone] Levy Barry MD Primary Care Provider Unavailab le Source Comments The information that you have received may contain highly confidential and/or federally protected health information. This information has been disclosed to you from records protected by [facility]. The law prohibits you [...] please contact the sender immediately.[facility] ([facility]) Encounter Details Date Type Department Care Team (Late st Contact Info) Description 02/09/2006 Historical Note SVMG [employer] System Devyn Vásquez MD [address] [place] [address] [phone] Social History Tobacco Use Types Packs/Day Years [...] CARRILLO - [facility] [address] [facility] [address] [place] [phone] Brenda Clay MD [address] [facility] [address] [place] [address] 04/15/2026 10:00 AM EDT Office Visit [facility] at [facility] + [facility] [address] [facility] [address] [place] [address] Sena Dominguez PA [address] [facility] [place] [address] documented as of this encounter Visit Diagnoses Not on filedocumented in this encounter Care Teams Driver Supervisor Relationship Specialty Start Date End Date Meme Steel MD [address] [place] [address] 105 [place] [address] PCP - General Pediatrics 06/05/18 04/25/22 No Pcp, Pcp PCP - General 06/08/22 07/19/22 Guadalupe Mcbride MD PCP - General Family Medicine 07/20/22 11/01/23 Sena Dominguez PA [address] [place] [address] [place] [address] PCP - BRADY Physician Medical Records Secretary 11/02/23 Levy Barry MD [address] [place] [address] [place] [address] PCP - General Family Medicine 12/20/23 documented as of this encounter
--- OUTSIDE RECORDS SUMMARY | 2025-08-14 15:15 | XMS_ITS | Encounter Summary ---
Author Organization [facility] work ([facility]) Address [address] [place] [address] Care Team Providers Care Para Professional Name Role Phone Meme Steel MD Primary Care Provider [phone] Pcp, Pcp Primary Care Provider Unavailabl Guadalupe Bardales MD Primary Care Provider [phone] Sena Dominguez Unavailable [phone] Levy Barry MD Primary Care Provider Unavailab le Source Comments The information that you have received may contain highly confidential and/or federally protected health information. This information has been disclosed to you from records protected by [facility]. The law prohibits you from [...] immediately.[facility] ([facility]) Encounter Details Date Type Department Care Team (Late st Contact Info) Description 09/10/2012 Historical Note [facility]G [employer] System Devyn Vásquez MD [address] [place] [address] [phone] Social History Tobacco Use Types Packs/Day Years [...] CARRILLO - [facility] [address] [facility] [address] [place] [phone] Brenda Clay MD [address] [facility] [address] [place] [address] 04/15/2026 10:00 AM EDT Office Visit [facility]HA [facility] at [facility] + [facility] [address] [facility] [address] [place] [address] Sena Dominguez PA [address] [facility] [place] [address] documented as of this encounter Visit Diagnoses Not on filedocumented in this encounter Care Teams Para Professional Relationship Specialty Start Date End Date Meme Steel MD [address] [place] [address] 105 [place] [address] PCP - General Pediatrics 06/05/18 04/25/22 No Pcp, Pcp PCP - General 06/08/22 07/19/22 Guadalupe Mcbride MD PCP - General Family Medicine 07/20/22 11/01/23 Sena Dominguez PA [address] [place] [address] [place] [address] PCP - BRADY Physician Gi Tech 11/02/23 Levy Barry MD [address] [place] [address] [place] [address] PCP - General Family Medicine 12/20/23 documented as of this encounter
--- OUTSIDE RECORDS SUMMARY | 2025-08-14 15:15 | XMS_ITS | Encounter Summary ---
Author Organization [facility] work ([facility]) Address [address] [place] [address] Care Team Providers Care Access Manager Name Role Phone Meme Steel MD Primary Care Provider [phone] Pcp, Pcp Primary Care Provider Unavailabl Guadalupe Bardales MD Primary Care Provider [phone] Sena Dominguez Unavailable [phone] Levy Barry MD Primary Care Provider Unavailab le Source Comments The information that you have received may contain highly confidential and/or federally protected health information. This information has been disclosed to you from records protected by [facility]. The law prohibits you from making [...] Contact Info) Description 09/10/2012 Historical Note [facility] Apprats System Devyn Vásquez MD [address] [place] [address] [phone] Social History Tobacco Use Types Packs/Day Years [...] LEATHA CARRILLO - [facility] [address] [facility] [address] [place] [phone] Brenda Clay MD [address] [facility] [address] [place] [phone] 04/15/2026 10:00 AM EDT Office Visit [facility]HA [facility] at [facility] + [facility] [address] [facility] [facility] [address] [place] [address] Sena Dominguez PA [address] [facility] [facility] [place] [address] documented as of this encounter Visit Diagnoses Not on filedocumented in this encounter Care Teams Access Manager Relationship Specialty Start Date End Date Meme Steel MD [address] [place] [address] 105 [place] [address] PCP - General Pediatrics 06/05/18 04/25/22 No Pcp, Pcp PCP - General 06/08/22 07/19/22 Guadalupe Mcbride MD PCP - General Family Medicine 07/20/22 11/01/23 Sena Dominguez PA [address] [place] [address] [place] [address] PCP - BRADY Physician Automation Test Developer 11/02/23 Levy Barry MD [address] [place] [address] [place] [address] PCP - General Family Medicine 12/20/23 documented as of this encounter
--- OUTSIDE RECORDS SUMMARY | 2025-08-14 15:15 | XMS_ITS | Encounter Summary ---
Author Organization [facility] work ([facility]) Address [address] [place] [address] Care Team Providers Care Plant Protection Supervisor Name Role Phone Meme Steel MD Primary Care Provider [phone] Pcp, Pcp Primary Care Provider Unavailabl Guadalupe Bardales MD Primary Care Provider [phone] Sena Dominguez Unavailable [phone] Levy Barry MD Primary Care Provider Unavailab le Source Comments The information that you have received may contain highly confidential and/or federally protected health information. This information has been disclosed to you from records protected by [id number]. The law prohibits you from [...] sender immediately.[facility] ([facility]) Encounter Details Date Type Department Care Team (Late st Contact Info) Description 06/19/2007 Historical Note [facility] Media Chaperone System Devyn Vásquez MD [address] [place] [address] [phone] Social History Tobacco Use Types Packs/Day Years [...] Office Visit LEATHA CARRILLO - [facility] [address] [facility] [address] [place] [phone] Brenda Clay MD [address] [facility] [address] [place] [address] 04/15/2026 10:00 AM EDT Office Visit [facility]HA [facility] at [facility] + [facility] [address] [facility] [address] [place] [address] Sena Dominguez PA [address] [facility] [place] [address] documented as of this encounter Visit Diagnoses Not on filedocumented in this encounter Care Teams Plant Protection Supervisor Relationship Specialty Start Date End Date Meme Steel MD [address] [place] [address] 105 [place] [address] PCP - General Pediatrics 06/05/18 04/25/22 No Pcp, Pcp PCP - General 06/08/22 07/19/22 Guadalupe Mcbride MD PCP - General Family Medicine 07/20/22 11/01/23 Sena Dominguez PA [address] [place] [address] [place] [address] PCP - BRADY Physician Crabber 11/02/23 Levy Barry MD [address] [place] [address] [place] [address] PCP - General Family Medicine 12/20/23 documented as of this encounter"
--- OUTSIDE RECORDS SUMMARY | 2025-08-14 15:15 | XMS_ITS | Encounter Summary ---
Author Organization [facility] work ([facility]) Address [address] [place] [address] Care Team Providers Care Vegetable Cutter Name Role Phone Meme Steel MD Primary Care Provider [phone] Pcp, Pcp Primary Care Provider Unavailabl Guadalupe Bardales MD Primary Care Provider [phone] Sena Dominguez Unavailable [phone] Levy Barry MD Primary Care Provider Unavailab le Source Comments The information that you have received may contain highly confidential and/or federally protected health information. This information has been disclosed to you from records protected by [facility]. The law prohibits you from [...] error, please contact the sender immediately.[facility] ([facility]) Encounter Details Date Type Department Care Team (Late st Contact Info) Description 01/24/2006 Historical Note [facility]G Kids Write Network System Devyn Vásquez MD [address] [place] [address] [phone] Social History Tobacco Use Types Packs/Day Years [...] LEATHA CARRILLO - [facility] [address] [facility] [address] [place] [phone] Brenda Clay MD [address] [facility] [address] [place] [address] 04/15/2026 10:00 AM EDT Office Visit LEATHA [facility] at [facility] + [facility] [address] [facility] [address] [place] [address] Sena Dominguez PA [address] [facility] [place] [address] documented as of this encounter Visit Diagnoses Not on filedocumented in this encounter Care Teams Vegetable Cutter Relationship Specialty Start Date End Date Meme Steel MD [address] [place] [address] 105 [place] [address] PCP - General Pediatrics 06/05/18 04/25/22 No Pcp, Pcp PCP - General 06/08/22 07/19/22 Guadalupe Mcbride MD PCP - General Family Medicine 07/20/22 11/01/23 Sena Dominguez PA [address] [place] [address] [place] [address] PCP - BRADY Physician Vacuum Plastic Forming Machine Operator 11/02/23 Levy Barry MD [address] [place] [address] [place] [address] PCP - General Family Medicine 12/20/23 documented as of this encounter
--- OUTSIDE RECORDS SUMMARY | 2025-08-14 15:15 | XMS_ITS | Encounter Summary ---
Author Organization [facility] work ([facility]) Address [address] [place] [address] Care Team Providers Care Waiter/Waitress Cafeteria Name Role Phone Meme Steel MD Primary Care Provider [phone] Pcp, Pcp Primary Care Provider Unavailabl Guadalupe Bardales MD Primary Care Provider [phone] Sena Dominguez Unavailable [phone] Levy Barry MD Primary Care Provider Unavailab le Source Comments The information that you have received may contain highly confidential and/or federally protected health information. This information has been disclosed to you from records protected by [facility]. The law prohibits you [...] please contact the sender immediately.[facility] ([facility]) Encounter Details Date Type Department Care Team (Late st Contact Info) Description 06/14/2007 Historical Note SVMG An [employer]ang Plant Protection Joint Stock [employer] System Devyn Vásquez MD [address] [place] [address] [phone] Social History Tobacco Use Types Packs/Day Years [...] CARRILLO - [facility] [address] [facility] [address] [place] [phone] Brenda Clay MD [address] [facility] [address] [place] [address] 04/15/2026 10:00 AM EDT Office Visit LEATHA Primary Care at [facility] + [facility] [address] [facility] [address] [place] [address] Sena Dominguez PA [address] [facility] [place] [address] documented as of this encounter Visit Diagnoses Not on filedocumented in this encounter Care Teams Waiter/Waitress Cafeteria Relationship Specialty Start Date End Date Meme Steel MD [address] [place] [address] 105 [place] [address] PCP - General Pediatrics 06/05/18 04/25/22 No Pcp, Pcp PCP - General 06/08/22 07/19/22 Guadalupe Mcbride MD PCP - General Family Medicine 07/20/22 11/01/23 Sena Dominguez PA [address] [place] [address] [place] [address] PCP - BRADY Physician Director Life Sciences 11/02/23 Levy Barry MD [address] [place] [address] [place] [address] PCP - General Family Medicine 12/20/23 documented as of this encounter
--- OUTSIDE RECORDS SUMMARY | 2025-08-14 15:15 | XMS_ITS | Encounter Summary ---
Author Organization [facility] work ([facility]) Address [address] [place] [address] Care Team Providers Care Mechanical Engineering Director Name Role Phone Meme Steel MD Primary Care Provider [phone] Pcp, Pcp Primary Care Provider Unavailabl Guadalupe Bardales MD Primary Care Provider [phone] Sena Dominguez Unavailable [phone] Levy Barry MD Primary Care Provider Unavailab le Source Comments The information that you have received may contain highly confidential and/or federally protected health information. This information has been disclosed to you from records protected by [employer]. The law prohibits you from [...] contact the sender immediately.[facility] ([facility]) Encounter Details Date Type Department Care Team (Late st Contact Info) Description 05/24/2012 Historical Note [facility] AW-Energy System Devyn Vásquez MD [address] [place] [address] [phone] Social History Tobacco Use Types Packs/Day Years [...] Visit LEATHA CARRILLO - [facility] [address] [facility] [address] [place] [phone] Brenda Clay MD [address] [facility] [address] [place] [address] 04/15/2026 10:00 AM EDT Office Visit LE[facility]HA [facility] at [facility] + [facility] [address] [facility] [address] [place] [address] Sena Dominguez PA [address] [facility] [place] [address] documented as of this encounter Visit Diagnoses Not on filedocumented in this encounter Care Teams Mechanical Engineering Director Relationship Specialty Start Date End Date Meme Steel MD [address] [place] [address] 105 [place] [address] PCP - General Pediatrics 06/05/18 04/25/22 No Pcp, Pcp PCP - General 06/08/22 07/19/22 Guadalupe Mcbride MD PCP - General Family Medicine 07/20/22 11/01/23 Sena Dominguez PA [address] [place] [address] [place] [address] PCP - BRADY Physician Developer Evangelist 11/02/23 Levy Barry MD [address] [place] [address] [place] [address] PCP - General Family Medicine 12/20/23 documented as of this encounter
--- OUTSIDE RECORDS SUMMARY | 2025-08-14 15:15 | XMS_ITS | Encounter Summary ---
Author Organization [facility] work ([facility]) Address [address] [place] [address] Care Team Providers Care Automotive Service Cashier Name Role Phone Meme Steel MD Primary Care Provider [phone] Pcp, Pcp Primary Care Provider Unavailabl Guadalupe Bardales MD Primary Care Provider [phone] Sena Dominguez Unavailable [phone] Levy Barry MD Primary Care Provider Unavailab le Source Comments The information that you have received may contain highly confidential and/or federally protected health information. This information has been disclosed to you from records protected by [facility]. The law prohibits you from making [...] please contact the sender immediately.[facility] ([facility]) Encounter Details Date Type Department Care Team (Late st Contact Info) Description 01/24/2006 Historical Note [facility] Sybari System Devyn Vásquez MD [address] [place] [address] [phone] Social History Tobacco Use Types Packs/Day Years [...] LEATHA CARRILLO - [facility] [address] [facility] [address] [place] [phone] Brenda Clay MD [address] [facility] [address] [place] [address] 04/15/2026 10:00 AM EDT Office Visit LE[facility]HA [facility] + [facility] [address] [facility] [address] [place] [address] Sena Dominguez PA [address] [facility] [place] [address] documented as of this encounter Visit Diagnoses Not on filedocumented in this encounter Care Teams Automotive Service Cashier Relationship Specialty Start Date End Date Meme Steel MD [address] [place] [address] 105 [place] [address] PCP - General Pediatrics 06/05/18 04/25/22 No Pcp, Pcp PCP - General 06/08/22 07/19/22 Guadalupe Mcbride MD PCP - General Family Medicine 07/20/22 11/01/23 Sena Dominguez PA [address] [place] [address] [place] [address] PCP - BRADY Physician Accountant Helper 11/02/23 Levy Barry MD [address] [place] [address] [place] [address] PCP - General Family Medicine 12/20/23 documented as of this encounter
--- OUTSIDE RECORDS SUMMARY | 2025-08-14 15:15 | XMS_ITS | Encounter Summary ---
Author Organization [facility] work ([facility]) Address [address] [facility] [address] [facility] [address] [address] [place] [address] Care Team Providers Care Printing Equipment Mechanic Name Role Phone Meme Steel MD Primary Care Provider [phone] Pcp, Pcp Primary Care Provider Unavailabl Guadalupe Bardales MD Primary Care Provider [phone] Sena Dominguez Unavailable [phone] Levy Barry MD Primary Care Provider Unavailab le Source Comments The information that you have received may contain highly confidential and/or federally protected health information. This information has been disclosed to you from records protected by [facility]. The law prohibits you [...] Contact Info) Description 02/09/2006 Historical Note [facility] [employer] System Devyn Vásquez MD [address] [place] [address] [phone] Social History Tobacco Use Types Packs/Day Years [...] LEATHA CARRILLO - [facility] [address] [facility] [address] [place] [phone] Brenda Clay MD [address] [facility] [address] [place] [address] 04/15/2026 10:00 AM EDT Office Visit [facility]HA [facility] at [facility] + [facility] [address] [facility] [address] [place] [address] Sena Dominguez PA [address] [facility] [place] [address] documented as of this encounter Visit Diagnoses Not on filedocumented in this encounter Care Teams Printing Equipment Mechanic Relationship Specialty Start Date End Date Meme Steel MD [address] [place] [address] [place] [address] PCP - General Pediatrics 06/05/18 04/25/22 No Pcp, Pcp PCP - General 06/08/22 07/19/22 Guadalupe Mcbride MD PCP - General Family Medicine 07/20/22 11/01/23 Sena Dominguez PA [address] [place] [address] [place] [address] PCP - BRADY Physician Manager Industrial 11/02/23 Levy Barry MD [address] [place] [address] [place] [address] PCP - General Family Medicine 12/20/23 documented as of this encounter
--- OUTSIDE RECORDS SUMMARY | 2025-08-14 15:15 | XMS_ITS | Encounter Summary ---
Author Organization [facility] work ([facility]) Address [address] [place] [address] Care Team Providers Care Clark Driver Name Role Phone Meme Steel MD Primary Care Provider [phone] Pcp, Pcp Primary Care Provider Unavailabl Guadalupe Bardales MD Primary Care Provider [phone] Sena Dominguez Unavailable [phone] Levy Barry MD Primary Care Provider Unavailab le Source Comments The information that you have received may contain highly confidential and/or federally protected health information. This information has been disclosed to you from records protected by [facility]. The law prohibits you [...] the sender immediately.[facility] ([facility]) Encounter Details Date Type Department Care Team (Late st Contact Info) Description 2004 Historical Note [facility] [employer] System Devyn Vásquez MD [address] [place] [address] [phone] Social History Tobacco Use Types Packs/Day Years [...] Visit LEATHA CARRILLO - [facility] [address] [facility] [address] [place] [phone] Brenda Clay MD [address] [facility] [address] [place] [address] 04/15/2026 10:00 AM EDT Office Visit LEATHA Primary [facility] at [facility] [address] [facility] [address] [place] [address] Sena Dominguez PA [address] [facility] [place] [address] documented as of this encounter Visit Diagnoses Not on filedocumented in this encounter Care Teams Clark Driver Relationship Specialty Start Date End Date Meme Steel MD [address] [place] [address] 105 [place] [address] PCP - General Pediatrics 06/05/18 04/25/22 No Pcp, Pcp PCP - General 06/08/22 07/19/22 Guadalupe Mcbride MD PCP - General Family Medicine 07/20/22 11/01/23 Sena Dominguez PA [address] [place] [address] [place] [address] PCP - BRADY Physician Epic Professional 11/02/23 Levy Barry MD [address] [place] [address] [place] [address] PCP - General Family Medicine 12/20/23 documented as of this encounter
--- OUTSIDE RECORDS SUMMARY | 2025-08-14 15:15 | XMS_ITS | Encounter Summary ---
Author Organization [facility] work ([facility]) Address [address] [place] [address] Care Team Providers Care Commercial Construction Estimator Name Role Phone Meme Steel MD Primary Care Provider [phone] Pcp, Pcp Primary Care Provider Unavailabl Guadalupe Bardales MD Primary Care Provider [phone] Sena Dominguez Unavailable [phone] Levy Barry MD Primary Care Provider Unavailab le Source Comments The information that you have received may contain highly confidential and/or federally protected health information. This information has been disclosed to you from records protected by [facility]. The law prohibits you from [...] please contact the sender immediately.[facility] ([facility]) Encounter Details Date Type Department Care Team (Late st Contact Info) Description 05/22/2012 Historical Note [facility] [employer] System Devyn Vásquez MD [address] [place] [address] [phone] Social History Tobacco Use Types Packs/Day Years [...] LEATHA CARRILLO - [facility] [address] [facility] [address] [place] [phone] Brenda Clay MD [address] [facility] [address] [place] [address] 04/15/2026 10:00 AM EDT Office Visit LEATHA Primary [facility] at [facility] + [facility] [address] [facility] [address] [place] [address] Sena Dominguez PA [address] [facility] [place] [address] documented as of this encounter Visit Diagnoses Not on filedocumented in this encounter Care Teams Commercial Construction Estimator Relationship Specialty Start Date End Date Meme Steel MD [address] [place] [address] 105 [place] [address] PCP - General Pediatrics 06/05/18 04/25/22 No Pcp, Pcp PCP - General 06/08/22 07/19/22 Guadalupe Mcbride MD PCP - General Family Medicine 07/20/22 11/01/23 Sena Dominguez PA [address] [place] [address] [place] [address] PCP - BRADY Physician Inbound Sales Consultant 11/02/23 Levy Barry MD [address] [place] [address] [place] [address] PCP - General Family Medicine 12/20/23 documented as of this encounter
--- OUTSIDE RECORDS SUMMARY | 2025-08-14 15:15 | XMS_ITS | Encounter Summary ---
Author Organization [facility] work ([facility]) Address [address] [place] [address] Care Team Providers Care Electrolysis Investigator Name Role Phone Meme Steel MD Primary Care Provider [phone] Pcp, Pcp Primary Care Provider Unavailabl Guadalupe Bardales MD Primary Care Provider [phone] Sena Dominguez Unavailable [phone] Levy Barry MD Primary Care Provider Unavailab le Source Comments The information that you have received may contain highly confidential and/or federally protected health information. This information has been disclosed to you from records protected by [facility]. The law prohibits you [...] please contact the sender immediately.[facility] ([facility]) Encounter Details Date Type Department Care Team (Late st Contact Info) Description 11/16/2006 Historical Note [facility] [employer] System Devyn Vásquez MD [address] [place] [address] [phone] Social History Tobacco Use Types Packs/Day Years [...] LEATHA CARRILLO - [facility] [address] [facility] [address] [place] [phone] Brenda Clay MD [address] [facility] [address] [place] [address] 04/15/2026 10:00 AM EDT Office Visit LEATHA Primary Care at [facility] + [facility] [address] [facility] [address] [place] [address] Sena Dominguez PA [address] [facility] [place] [address] documented as of this encounter Visit Diagnoses Not on filedocumented in this encounter Care Teams Electrolysis Investigator Relationship Specialty Start Date End Date Meme Steel MD [address] [place] [address] 105 [place] [address] PCP - General Pediatrics 06/05/18 04/25/22 No Pcp, Pcp PCP - General 06/08/22 07/19/22 Guadalupe Mcbride MD PCP - General Family Medicine 07/20/22 11/01/23 Sena Dominguez PA [address] [place] [address] [place] [address] PCP - BRADY Physician Multimedia Manager 11/02/23 Levy Barry MD [address] [place] [address] [place] [address] PCP - General Family Medicine 12/20/23 documented as of this encounter
--- OUTSIDE RECORDS SUMMARY | 2025-08-14 15:15 | XMS_ITS | Encounter Summary ---
Author Organization [facility] work ([facility]) Address [address] [facility] [address] [place] [address] Care Team Providers Care Stitching Machine Feeder Or Offbearer Name Role Phone Meme Steel MD Primary Care Provider [phone] Pcp, Pcp Primary Care Provider Unavailabl Guadalupe Bardales MD Primary Care Provider [phone] Sena Dominguez Unavailable [phone] Levy Barry MD Primary Care Provider Unavailab le Source Comments The information that you have received may contain highly confidential and/or federally protected health information. This information has been disclosed to you from records protected by [facility]. The law prohibits [...] the sender immediately.[facility] ([facility]) Encounter Details Date Type Department Care Team (Late st Contact Info) Description 05/08/2012 Historical Note [facility] [employer] System Devyn Vásquez MD [address] [place] [address] [phone] Social History Tobacco Use Types Packs/Day Years [...] LEATHA CARRILLO - [facility] [address] [facility] [address] [place] [phone] Brenda Clay MD [address] [facility] [address] [place] [address] 04/15/2026 10:00 AM EDT Office Visit LEATHA [facility] at [facility] [address] [facility] [address] [place] [address] Sena Dominguez PA [address] [facility] [place] [address] documented as of this encounter Visit Diagnoses Not on filedocumented in this encounter Care Teams Stitching Machine Feeder Or Offbearer Relationship Specialty Start Date End Date Meme Steel MD [address] [place] [address] 105 [place] [address] PCP - General Pediatrics 06/05/18 04/25/22 No Pcp, Pcp PCP - General 06/08/22 07/19/22 Guadalupe Mcbride MD PCP - General Family Medicine 07/20/22 11/01/23 Sena Dominguez PA [address] [place] [address] [place] [address] PCP - BRADY Physician Stationary Engineer Supervisor 11/02/23 Levy Barry MD [address] [place] [address] [place] [address] PCP - General Family Medicine 12/20/23 documented as of this encounter
--- OUTSIDE RECORDS SUMMARY | 2025-08-14 15:15 | XMS_ITS | Encounter Summary ---
Author Organization [facility] work ([facility]) Address [address] [place] [address] [facility] [address] [place] [address] Care Team Providers Care Truck Sales Representative Name Role Phone Meme Steel MD Primary Care Provider [phone] Pcp, Pcp Primary Care Provider Unavailabl Guadalupe Bardales MD Primary Care Provider [phone] Sena Dominguez Unavailable [phone] Levy Barry MD Primary Care Provider Unavailab le Source Comments The information that you have received may contain highly confidential and/or federally protected health information. This information has been disclosed to you from records protected by [facility]. The law prohibits you [...] [facility] ([facility]) Encounter Details Date Type Department Care Team (Late st Contact Info) Description 05/22/2012 Historical Note [facility] [employer] System Devyn Vásquez MD [address] [place] [address] [phone] Social History Tobacco Use Types Packs/Day Years [...] CARRILLO - [facility] [address] [facility] [address] [place] [phone] Brenda Clay MD [address] [facility] [address] [place] [address] 04/15/2026 10:00 AM EDT Office Visit LEATHA Primary [facility] at [facility] + [facility] [address] [facility] [address] [place] [address] Sena Dominguez PA [address] [facility] [place] [address] documented as of this encounter Visit Diagnoses Not on filedocumented in this encounter Care Teams Truck Sales Representative Relationship Specialty Start Date End Date Meme Steel MD [address] [place] [address] 105 [place] [address] PCP - General Pediatrics 06/05/18 04/25/22 No Pcp, Pcp PCP - General 06/08/22 07/19/22 Guadalupe Mcbride MD PCP - General Family Medicine 07/20/22 11/01/23 Sena Dominguez PA [address] [place] [address] [place] [address] PCP - BRADY Physician Disability Coordinator 11/02/23 Levy Barry MD [address] [place] [address] [place] [address] PCP - General Family Medicine 12/20/23 documented as of this encounter
--- OUTSIDE RECORDS SUMMARY | 2025-08-14 15:15 | XMS_ITS | Encounter Summary ---
Author Organization [facility] work ([facility]) Address [address] [place] [address] Care Team Providers Care Pattern Marking Supervisor Name Role Phone Meme Steel MD Primary Care Provider [phone] Pcp, Pcp Primary Care Provider Unavailabl Guadalupe Bardales MD Primary Care Provider [phone] Sena Dominguez Unavailable [phone] Levy Barry MD Primary Care Provider Unavailab le Source Comments The information that you have received may contain highly confidential and/or federally protected health information. This information has been disclosed to you from records protected by [facility]. The law prohibits you [...] the sender immediately.[facility] ([facility]) Encounter Details Date Type Department Care Team (Late st Contact Info) Description 2004 Historical Note [facility] [employer] System Devyn Vásquez MD [address] [place] [address] [phone] Social History Tobacco Use Types Packs/Day Years [...] - [facility] at [facility] [address] [facility] [address] [place] [phone] Brenda Clay MD [address] [facility] [address] [place] [address] 04/15/2026 10:00 AM EDT Office Visit LEATHA Primary Care at [facility] [address] [facility] [address] [place] [address] Sena Dominguez PA [address] [facility] [place] [address] documented as of this encounter Visit Diagnoses Not on filedocumented in this encounter Care Teams Pattern Marking Supervisor Relationship Specialty Start Date End Date Meme Steel MD [address] [place] [address] 105 [place] [address] PCP - General Pediatrics 06/05/18 04/25/22 No Pcp, Pcp PCP - General 06/08/22 07/19/22 Guadalupe Mcbride MD PCP - General Family Medicine 07/20/22 11/01/23 Sena Dominguez PA [address] [place] [address] [place] [address] PCP - BRADY Physician Artists' Model 11/02/23 Levy Barry MD [address] [place] [address] [place] [address] PCP - General Family Medicine 12/20/23 documented as of this encounter
--- OUTSIDE RECORDS SUMMARY | 2025-08-14 15:15 | XMS_ITS | Encounter Summary ---
Author Organization [facility] work ([facility]) Address [address] [place] [address] Care Team Providers Care Slip Sheeter Name Role Phone Meme Steel MD Primary Care Provider [phone] Pcp, Pcp Primary Care Provider Unavailabl Guadalupe Bardales MD Primary Care Provider [phone] Sena Dominguez Unavailable [phone] Levy Barry MD Primary Care Provider Unavailab le Source Comments The information that you have received may contain highly confidential and/or federally protected health information. This information has been disclosed to you from records protected by [facility]. The law prohibits you [...] please contact the sender immediately.[facility] ([facility]) Encounter Details Date Type Department Care Team (Late st Contact Info) Description 01/23/2006 Historical Note [facility] [employer] System Devyn Vásquez MD [address] [place] [address] [phone] Social History Tobacco Use Types Packs/Day Years [...] Visit LEATHA CARRILLO - [facility] [address] [facility] [address] [place] [phone] Brenda Clay MD [address] [facility] [address] [place] [address] 04/15/2026 10:00 AM EDT Office Visit LEATHA Primary [facility] at [facility] + [facility] [address] [facility] [address] [place] [address] Sena Dominguez PA [address] [facility] [place] [address] documented as of this encounter Visit Diagnoses Not on filedocumented in this encounter Care Teams Slip Sheeter Relationship Specialty Start Date End Date Meme Steel MD [address] [place] [address] 105 [place] [address] PCP - General Pediatrics 06/05/18 04/25/22 No Pcp, Pcp PCP - General 06/08/22 07/19/22 Guadalupe Mcbride MD PCP - General Family Medicine 07/20/22 11/01/23 Sena Dominguez PA [address] [place] [address] [place] [address] PCP - BRADY Physician Fur Glosser 11/02/23 Levy Barry MD [address] [place] [address] [place] [address] PCP - General Family Medicine 12/20/23 documented as of this encounter
--- OUTSIDE RECORDS SUMMARY | 2025-08-14 15:15 | XMS_ITS | Encounter Summary ---
Author Organization [facility] work ([facility]) Address [address] [place] [address] Care Team Providers Care Gristmill Operator Name Role Phone Meme Steel MD Primary Care Provider [phone] Pcp, Pcp Primary Care Provider Unavailabl Guadalupe Bardales MD Primary Care Provider [phone] Sena Dominguez Unavailable [phone] Levy Barry MD Primary Care Provider Unavailab le Source Comments The information that you have received may contain highly confidential and/or federally protected health information. This information has been disclosed to you from records protected by [facility]. The law prohibits you from making [...] error, please contact the sender immediately.[facility] ([facility]) Encounter Details Date Type Department Care Team (Late st Contact Info) Description 02/08/2006 Historical Note [facility] [employer] System Devyn Vásquez MD [address] [place] [address] [phone] Social History Tobacco Use Types Packs/Day Years [...] Visit LEATHA CARRILLO - [facility] [address] [facility] [address] [place] [phone] Brenda Clay MD [address] [facility] [address] [place] [address] 04/15/2026 10:00 AM EDT Office Visit LEATHA Primary [facility] at [facility] + [facility] [address] [facility] [address] [place] [address] Sena Dominguez PA [address] [facility] [place] [address] documented as of this encounter Visit Diagnoses Not on filedocumented in this encounter Care Teams Gristmill Operator Relationship Specialty Start Date End Date Meme Steel MD [address] [place] [address] 105 [place] [address] PCP - General Pediatrics 06/05/18 04/25/22 No Pcp, Pcp PCP - General 06/08/22 07/19/22 Guadalupe Mcbride MD PCP - General Family Medicine 07/20/22 11/01/23 Sena Dominguez PA [address] [place] [address] [place] [address] PCP - BRADY Physician Flight Hostess 11/02/23 Levy Barry MD [address] [place] [address] [place] [address] PCP - General Family Medicine 12/20/23 documented as of this encounter
--- OUTSIDE RECORDS SUMMARY | 2025-08-14 15:15 | XMS_ITS | Encounter Summary ---
Author Organization [facility] work ([facility]) Address [address] [place] [address] Care Team Providers Care Optometric Technician Name Role Phone Meme Steel MD Primary Care Provider [phone] Pcp, Pcp Primary Care Provider Unavailabl Guadalupe Bardales MD Primary Care Provider [phone] Sena Dominguez Unavailable [phone] Levy Barry MD Primary Care Provider Unavailab le Source Comments The information that you have received may contain highly confidential and/or federally protected health information. This information has been disclosed to you from records protected by [facility]. The law prohibits you from [...] contact the sender immediately.[facility] ([facility]) Encounter Details Date Type Department Care Team (Late st Contact Info) Description 05/08/2012 Historical Note [facility] [employer] [facility] Devyn Vásquez MD [address] [place] [address] [phone] Social History Tobacco Use Types Packs/Day Years [...] [facility] at [facility] [address] [facility] [address] [place] [phone] Brenda Clay MD [address] [facility] [address] [place] [address] 04/15/2026 10:00 AM EDT Office Visit LEATHA [facility] [address] [facility] [address] [place] [address] Sena Dominguez PA [address] [facility] [place] [address] documented as of this encounter Visit Diagnoses Not on filedocumented in this encounter Care Teams Optometric Technician Relationship Specialty Start Date End Date Meme Steel MD [address] [place] [address] 105 [place] [address] PCP - General Pediatrics 06/05/18 04/25/22 No Pcp, Pcp PCP - General 06/08/22 07/19/22 Guadalupe Mcbride MD PCP - General Family Medicine 07/20/22 11/01/23 Sena Dominguez PA [address] [place] [address] [place] [address] PCP - BRADY Physician Anchorer 11/02/23 Levy Barry MD [address] [place] [address] [place] [address] PCP - General Family Medicine 12/20/23 documented as of this encounter
--- OUTSIDE RECORDS SUMMARY | 2025-08-14 15:15 | XMS_ITS | Encounter Summary ---
Author Organization [facility] work ([facility]) Address [address] [place] [address] Care Team Providers Care Rotary Cutter Name Role Phone Meme Steel MD Primary Care Provider [phone] Pcp, Pcp Primary Care Provider Unavailabl Guadalupe Bardales MD Primary Care Provider [phone] Sena Dominguez Unavailable [phone] Levy Barry MD Primary Care Provider Unavailab le Source Comments The information that you have received may contain highly confidential and/or federally protected health information. This information has been disclosed to you from records protected by [facility]. The law prohibits you from [...] sender immediately.[facility] ([facility]) Encounter Details Date Type Department Care Team (Late st Contact Info) Description 02/08/2006 Historical Note [facility] Numerous System Devyn Vásquez MD [address] [place] [address] [phone] Social History Tobacco Use Types Packs/Day Years [...] CARRILLO - [facility] [address] [place] [phone] Brenda Clay MD [address] [facility] [address] [place] [address] 04/15/2026 10:00 AM EDT Office Visit LEATHA [facility] at [facility] + [facility] [address] [place] [address] Sena Dominguez PA [address] [facility] [place] [address] documented as of this encounter Visit Diagnoses Not on filedocumented in this encounter Care Teams Rotary Cutter Relationship Specialty Start Date End Date Meme Steel MD [address] [place] [address] [place] [address] PCP - General Pediatrics 06/05/18 04/25/22 No Pcp, Pcp PCP - General 06/08/22 07/19/22 Guadalupe Mcbride MD PCP - General Family Medicine 07/20/22 11/01/23 Sena Dominguez PA [address] [place] [address] [place] [address] PCP - BRADY Physician Deckhand 11/02/23 Levy Barry MD [address] [place] [address] [place] [address] PCP - General Family Medicine 12/20/23 documented as of this encounter
--- OUTSIDE RECORDS SUMMARY | 2025-08-14 15:15 | XMS_ITS | Encounter Summary ---
Author Organization [facility] work ([facility]) Address [address] [place] [address] Care Team Providers Care Personal Financial Planner Name Role Phone Meme Steel MD Primary Care Provider [phone] Pcp, Pcp Primary Care Provider Unavailabl Guadalupe Bardaels MD Primary Care Provider [phone] Sena Dominguez Unavailable Levy Barry MD Primary Care Provider Unavailab le Source Comments The information that you have received may contain highly confidential and/or federally protected health information. This information has been disclosed to you from records protected by [facility]. The law prohibits you [...] please contact the sender immediately.[facility] ([facility]) Encounter Details Date Type Department Care Team (Late st Contact Info) Description 01/23/2006 Historical Note [facility] ZeroMail System Devyn Vásquez MD [address] [place] [address] [phone] Social History Tobacco Use Types Packs/Day Years [...] Visit LEATHA CARRILLO - [facility] [address] [place] [phone] Brenda Clay MD [address] [facility] [address] [place] [phone] 04/15/2026 10:00 AM EDT Office Visit LEATHA [facility] at [facility] + [facility] [address] [place] [address] Sena Dominguez PA [address] [facility] [place] [address] documented as of this encounter Visit Diagnoses Not on filedocumented in this encounter Care Teams Personal Financial Planner Relationship Specialty Start Date End Date Meme Steel MD [address] [place] [address] 105 [place] [address] PCP - General Pediatrics 06/05/18 04/25/22 No Pcp, Pcp PCP - General 06/08/22 07/19/22 Guadalupe Mcbride MD PCP - General Family Medicine 07/20/22 11/01/23 Sena Dominguez PA [address] [place] [address] [place] [address] PCP - BRADY Physician An Employee Sponsor Or Advocate And 11/02/23 Levy Barry MD [address] [place] [address] [place] [address] PCP - General Family Medicine 12/20/23 documented as of this encounter
--- OUTSIDE RECORDS SUMMARY | 2025-08-14 15:15 | XMS_ITS | Encounter Summary ---
Author Organization [facility] work ([facility]) Address [address] [place] [address] Care Team Providers Care Job Honer Name Role Phone Meme Steel MD Primary Care Provider [phone] Pcp, Pcp Primary Care Provider Unavailabl Guadalupe Bardales MD Primary Care Provider [phone] Sena Dominguez Unavailable [phone] Levy Barry MD Primary Care Provider Unavailab le Source Comments The information that you have received may contain highly confidential and/or federally protected health information. This information has been disclosed to you from records protected by [facility]. The law prohibits you from making [...] error, please contact the sender immediately.[facility] ([facility]) Encounter Details Date Type Department Care Team (Late st Contact Info) Description 03/11/2007 Historical Note [facility] Accelera System Devyn Vsáquez MD [address] [place] [address] [phone] Social History Tobacco Use Types Packs/Day Years [...] LEATHA CARRILLO - [facility] [address] [facility] [address] [place] [phone] Brenda Clay MD [address] [facility] [address] [place] [address] 04/15/2026 10:00 AM EDT Office Visit LEATHA Primary Care at [facility] + [facility] [address] [facility] [address] [place] [address] Sena Dominguez PA [address] [facility] [place] [address] documented as of this encounter Visit Diagnoses Not on filedocumented in this encounter Care Teams Job Honer Relationship Specialty Start Date End Date Meme Steel MD [address] [place] [address] 105 [place] [address] PCP - General Pediatrics 06/05/18 04/25/22 No Pcp, Pcp PCP - General 06/08/22 07/19/22 Guadalupe Mcbride MD PCP - General Family Medicine 07/20/22 11/01/23 Sena Dominguez PA [address] [place] [address] [place] [address] PCP - BRADY Physician Director Of Community Services 11/02/23 Levy Barry MD [address] [place] [address] [place] [address] PCP - General Family Medicine 12/20/23 documented as of this encounter
--- OUTSIDE RECORDS SUMMARY | 2025-08-14 15:15 | XMS_ITS | Encounter Summary ---
Author Organization [facility] work ([facility]) Address [address] [place] [address] Care Team Providers Care Hardening Machine Operator Name Role Phone Meme Steel MD Primary Care Provider No Pcp, Pcp Primary Care Provider Unavailabl Guadalupe Bardales MD Primary Care Provider [phone] Sena Dominguez Unavailable [phone] Levy Barry MD Primary Care Provider Unavailab le Source Comments The information that you have received may contain highly confidential and/or federally protected health information. This information has been disclosed to you from records protected by [facility]. The law prohibits you [...] please contact the sender immediately.[facility] ([facility]) Encounter Details Date Type Department Care Team (Late st Contact Info) Description 05/22/2012 Historical Note [facility] WeHaus System Devyn Vásquez MD [address] [place] [address] [phone] Social History Tobacco Use Types Packs/Day Years [...] CARRILLO - [facility] [address] [facility] [address] [place] [phone] Brenda Clay MD [address] [facility] [address] [place] [address] 04/15/2026 10:00 AM EDT Office Visit LEATHA Primary [facility] at [facility] + [facility] [address] [facility] [facility] [address] [place] [address] Sena Dominguez PA [address] [facility] [place] [address] documented as of this encounter Visit Diagnoses Not on filedocumented in this encounter Care Teams Hardening Machine Operator Relationship Specialty Start Date End Date Meme Steel MD [address] [place] [address] 105 [place] [address] PCP - General Pediatrics 06/05/18 04/25/22 No Pcp, Pcp PCP - General 06/08/22 07/19/22 Guadalupe Mcbride MD PCP - General Family Medicine 07/20/22 11/01/23 Sena Dominguez PA [address] [place] [address] [place] [address] PCP - BRADY Physician Youtuber 11/02/23 Levy Barry MD [address] [place] [address] [place] [address] PCP - General Family Medicine 12/20/23 documented as of this encounter
--- OUTSIDE RECORDS SUMMARY | 2025-08-14 15:15 | XMS_ITS | Encounter Summary ---
Author Organization [facility] work ([facility]) Address [address] [place] [address] Care Team Providers Care Supervisor Transferring And Boxing Name Role Phone Meme Steel MD Primary Care Provider [phone] Pcp, Pcp Primary Care Provider Unavailabl Guadalpue Bardales MD Primary Care Provider [phone] Sena Dominguez Unavailable [phone] Levy Barry MD Primary Care Provider Unavailab le Source Comments The information that you have received may contain highly confidential and/or federally protected health information. This information has been disclosed to you from records protected by [facility]. The law prohibits you from [...] please contact the sender immediately.[facility] ([facility]) Encounter Details Date Type Department Care Team (Late st Contact Info) Description 2004 Historical Note [facility] youcalc System Devyn Vásquez MD [address] [place] [address] [phone] Social History Tobacco Use Types Packs/Day Years [...] [facility] [address] [facility] [facility] [address] [place] [phone] Brenda Clay MD [address] [facility] [address] [place] [address] 04/15/2026 10:00 AM EDT Office Visit LEATHA Primary [facility] + [facility] [address] [facility] [facility] [address] [place] [address] Sena Dominguez PA [address] [facility] [place] [address] documented as of this encounter Visit Diagnoses Not on filedocumented in this encounter Care Teams Supervisor Transferring And Boxing Relationship Specialty Start Date End Date Meme Steel MD [address] [place] [address] 105 [place] [address] PCP - General Pediatrics 06/05/18 04/25/22 No Pcp, Pcp PCP - General 06/08/22 07/19/22 Guadalupe Mcbride MD PCP - General Family Medicine 07/20/22 11/01/23 Sena Dominguez PA [address] [place] [address] [place] [address] PCP - BRADY Physician Movie Extra 11/02/23 Levy Barry MD [address] [place] [address] [place] [address] PCP - General Family Medicine 12/20/23 documented as of this encounter
--- OUTSIDE RECORDS SUMMARY | 2025-08-14 15:15 | XMS_ITS | Encounter Summary ---
Author Organization [facility] work ([facility]) Address [address] [place] [address] Care Team Providers Care Price Changer Name Role Phone Meme Steel MD Primary Care Provider [phone] Pcp, Pcp Primary Care Provider Unavailabl Guadalupe Bardales MD Primary Care Provider [phone] Sena Dominguez Unavailable [phone] Levy Barry MD Primary Care Provider Unavailab le Source Comments The information that you have received may contain highly confidential and/or federally protected health information. This information has been disclosed to you from records protected by [facility]. The law prohibits you from making [...] please contact the sender immediately.[facility] ([facility]) Encounter Details Date Type Department Care Team (Late st Contact Info) Description 01/13/2006 Historical Note [facility] RidePal System Devyn Vásquez MD [address] [place] [address] [phone] Social History Tobacco Use Types Packs/Day Years [...] CARRILLO - [facility] [address] [facility] [address] [place] [phone] Brenda Clay MD [address] [facility] [address] [place] [address] 04/15/2026 10:00 AM EDT Office Visit LEATHA Primary Care at [facility] + [facility] [address] [facility] [address] [facility] [address] [place] [address] Sena Dominguez PA [address] [facility] [place] [address] documented as of this encounter Visit Diagnoses Not on filedocumented in this encounter Care Teams Price Changer Relationship Specialty Start Date End Date Meme Steel MD [address] [place] [address] 105 [place] [address] PCP - General Pediatrics 06/05/18 04/25/22 No Pcp, Pcp PCP - General 06/08/22 07/19/22 Guadalupe Mcbride MD PCP - General Family Medicine 07/20/22 11/01/23 Sena Dominguez PA [address] [place] [address] [place] [address] PCP - BRADY Physician Breaker Hand 11/02/23 Levy Barry MD [address] [place] [address] [place] [address] PCP - General Family Medicine 12/20/23 documented as of this encounter
--- OUTSIDE RECORDS SUMMARY | 2025-08-14 15:15 | XMS_ITS | Encounter Summary ---
Author Organization [facility] work ([facility]) Address [address] [place] [address] Care Team Providers Care Permaculture Contractor Name Role Phone Meme Steel MD Primary Care Provider [phone] Pcp, Pcp Primary Care Provider Unavailabl Guadalupe Bardales MD Primary Care Provider [phone] Sena Dominguez Unavailable [phone] Levy Barry MD Primary Care Provider Unavailab le Source Comments The information that you have received may contain highly confidential and/or federally protected health information. This information has been disclosed to you from records protected by [facility]. The law prohibits you from [...] contact the sender immediately.[facility] ([facility]) Encounter Details Date Type Department Care Team (Late st Contact Info) Description 05/21/2012 Historical Note [facility] ADTZ System Devyn Vásquez MD [address] [place] [address] [phone] Social History Tobacco Use Types Packs/Day Years [...] Visit LEATHA CARRILLO - [facility] [address] [facility] [address] [place] [phone] Brenda Clay MD [address] [facility] [address] [place] [address] 04/15/2026 10:00 AM EDT Office Visit LEATHA Primary [facility] at [facility] [address] [facility] [address] [place] [address] Sena Dominguez PA [address] [facility] [place] [address] documented as of this encounter Visit Diagnoses Not on filedocumented in this encounter Care Teams Permaculture Contractor Relationship Specialty Start Date End Date Meme Steel MD [address] [place] [address] [place] [address] PCP - General Pediatrics 06/05/18 04/25/22 No Pcp, Pcp PCP - General 06/08/22 07/19/22 Guadalupe Mcbride MD PCP - General Family Medicine 07/20/22 11/01/23 Sena Dominguez PA [address] [place] [address] [place] [address] PCP - BRADY Physician Emergency Manager 11/02/23 Levy Barry MD [address] [place] [address] [place] [address] PCP - General Family Medicine 12/20/23 documented as of this encounter
--- OUTSIDE RECORDS SUMMARY | 2025-08-14 15:15 | XMS_ITS | Encounter Summary ---
Author Organization [facility] work ([facility]) Address [address] [place] [address] Care Team Providers Care Osteopathic Medicine Teacher Name Role Phone Meme Steel MD Primary Care Provider [phone] No Pcp, Pcp Primary Care Provider Unavailabl Guadalupe Bardales MD Primary Care Provider [phone] Sena Dominguez Unavailable [phone] Levy Barry MD Primary Care Provider Unavailab le Source Comments The information that you have received may contain highly confidential and/or federally protected health information. This information has been disclosed to you from records protected by [employer]. The law prohibits you from [...] error, please contact the sender immediately.[facility] ([facility]) Encounter Details Date Type Department Care Team (Late st Contact Info) Description 2004 Historical Note [facility] Osper System Devyn Vásquez MD [address] [place] [address] [phone] Social History Tobacco Use Types Packs/Day Years [...] LEATHA CARRILLO - [facility] [address] [facility] [address] [place] [phone] Brenda Clay MD [address] [facility] [address] [place] [address] 04/15/2026 10:00 AM EDT Office Visit LEATHA Primary [facility] at [facility] + [facility] [address] [facility] [address] [place] [address] Sena Dominguez PA [address] [facility] [place] [address] documented as of this encounter Visit Diagnoses Not on filedocumented in this encounter Care Teams Osteopathic Medicine Teacher Relationship Specialty Start Date End Date Meme Steel MD [address] [place] [address] 105 [place] [address] PCP - General Pediatrics 06/05/18 04/25/22 No Pcp, Pcp PCP - General 06/08/22 07/19/22 Guadalupe Mcbride MD PCP - General Family Medicine 07/20/22 11/01/23 Sena Dominguez PA [address] [place] [address] [place] [address] PCP - BRADY Physician Currency Machine Operator 11/02/23 Levy Barry MD [address] [place] [address] [place] [address] PCP - General Family Medicine 12/20/23 documented as of this encounter
--- OUTSIDE RECORDS SUMMARY | 2025-08-14 15:16 | XMS_ITS | Encounter Summary ---
Author Organization [facility] work ([facility]) Address [address] [place] [address] Care Team Providers Care Pizza Delivery Name Role Phone Meme Steel MD Primary Care Provider [phone] Pcp, Pcp Primary Care Provider Unavailabl Guadalupe Bardales MD Primary Care Provider [phone] Sena Dominguez Unavailable [phone] Levy Barry MD Primary Care Provider Unavailab le Source Comments The information that you have received may contain highly confidential and/or federally protected health information. This information has been disclosed to you from records protected by [facility]. The law prohibits you [...] sender immediately.[facility] ([facility]) Encounter Details Date Type Department Care Team (Late st Contact Info) Description 05/24/2012 Historical Note [facility] [employer] System Devyn Vásquez MD [address] [place] [address] [phone] Social History Tobacco Use Types Packs/Day Years [...] CARRILLO - [facility] [address] [facility] [address] [place] [phone] Brenda Clay MD [address] [facility] [address] [place] [phone] 04/15/2026 10:00 AM EDT Office Visit LEATHA Primary [facility] at [facility] + [facility] [address] [facility] [address] [place] [address] Sena Dominguez PA [address] [facility] [place] [address] documented as of this encounter Visit Diagnoses Not on filedocumented in this encounter Care Teams Pizza Delivery Relationship Specialty Start Date End Date Meme Steel MD [address] [place] [address] 105 [place] [address] PCP - General Pediatrics 06/05/18 04/25/22 No Pcp, Pcp PCP - General 06/08/22 07/19/22 Guadalupe Mcbride MD PCP - General Family Medicine 07/20/22 11/01/23 Sena Dominguez PA [address] [place] [address] [place] [address] PCP - BRADY Physician Labor Utilization Superintendent 11/02/23 Levy Barry MD [address] [place] [address] [place] [address] PCP - General Family Medicine 12/20/23 documented as of this encounter
--- OUTSIDE RECORDS SUMMARY | 2025-08-14 15:16 | XMS_ITS | Encounter Summary ---
Author Organization [facility] work ([facility]) Address [address] [place] [address] Care Team Providers Care Construction Tech Name Role Phone Meme Steel MD Primary Care Provider [phone] Pcp, Pcp Primary Care Provider Unavailabl Guadalupe Bardales MD Primary Care Provider [phone] Sena Dominguez Unavailable [phone] Levy Barry MD Primary Care Provider Unavailab le Source Comments The information that you have received may contain highly confidential and/or federally protected health information. This information has been disclosed to you from records protected by [facility]. The law prohibits you from [...] please contact the sender immediately.[facility] ([facility]) Encounter Details Date Type Department Care Team (Late st Contact Info) Description 09/10/2012 Historical Note SVMG [employer] System Devyn Vásquez MD [address] [place] [address] [phone] Social History Tobacco Use Types Packs/Day Years [...] [facility] [address] [facility] [address] [place] [phone] Brenda Clay MD [address] [facility] [address] [place] [address] 04/15/2026 10:00 AM EDT Office Visit LEATHA Primary [facility] at [facility] + [facility] [address] [facility] [address] [place] [address] Sena Dominguez PA [address] [facility] [place] [address] documented as of this encounter Visit Diagnoses Not on filedocumented in this encounter Care Teams Construction Tech Relationship Specialty Start Date End Date Meme Steel MD [address] [place] [address] 105 [place] [address] PCP - General Pediatrics 06/05/18 04/25/22 No Pcp, Pcp PCP - General 06/08/22 07/19/22 Guadalupe Mcbride MD PCP - General Family Medicine 07/20/22 11/01/23 Sena Dominguez PA [address] [place] [address] [place] [address] PCP - BRADY Physician Biomedical Service Engineer 11/02/23 Levy Barry MD [address] [place] [address] [place] [address] PCP - General Family Medicine 12/20/23 documented as of this encounter
--- OUTSIDE RECORDS SUMMARY | 2025-08-14 15:16 | XMS_ITS | Encounter Summary ---
Author Organization [facility] work ([facility]) Address [address] [place] [address] Care Team Providers Care Service Planner Name Role Phone Meme Steel MD Primary Care Provider [phone] Pcp, Pcp Primary Care Provider Unavailabl Guadalupe Bardales MD Primary Care Provider [phone] Sena Dominguez Unavailable [phone] Levy Barry MD Primary Care Provider Unavailab le Source Comments The information that you have received may contain highly confidential and/or federally protected health information. This information has been disclosed to you from records protected by [facility]. The law prohibits you [...] [facility] ([facility]) Encounter Details Date Type Department Care Team (Late st Contact Info) Description 10/18/2005 Historical Note [facility] [employer] System Devyn Vásquez MD [address] [place] [address] [phone] Social History Tobacco Use Types Packs/Day Years [...] Visit LEATHA CARRILLO - [facility] [address] [facility] [address] [place] [phone] Brenda Clay MD [address] [facility] [address] [place] [address] 04/15/2026 10:00 AM EDT Office Visit [facility]HA [facility] + [facility] [place] [facility] [address] [facility] [address] [place] [address] Sena Dominguez PA [address] [facility] [place] [address] documented as of this encounter Visit Diagnoses Not on filedocumented in this encounter Care Teams Service Planner Relationship Specialty Start Date End Date Meme Steel MD [address] [place] [address] [place] [address] PCP - General Pediatrics 06/05/18 04/25/22 No Pcp, Pcp PCP - General 06/08/22 07/19/22 Guadalupe Mcbride MD PCP - General Family Medicine 07/20/22 11/01/23 Sena Dominguez PA [address] [place] [address] [place] [address] PCP - BRADY Physician Dry Room Attendant 11/02/23 Levy Barry MD [address] [place] [address] [place] [address] PCP - General Family Medicine 12/20/23 documented as of this encounter
--- OUTSIDE RECORDS SUMMARY | 2025-08-14 15:16 | XMS_ITS | Encounter Summary ---
Author Organization [facility] work ([facility]) Address [address] [place] [address] Care Team Providers Care Field Traffic Investigator Name Role Phone Meme Steel MD Primary Care Provider [phone] Pcp, Pcp Primary Care Provider Unavailabl Guadalupe Bardales MD Primary Care Provider [phone] Sena Dominguez Unavailable [phone] Levy Barry MD Primary Care Provider Unavailab le Source Comments The information that you have received may contain highly confidential and/or federally protected health information. This information has been disclosed to you from records protected by [facility]. The law prohibits you from [...] please contact the sender immediately.[facility] ([facility]) Encounter Details Date Type Department Care Team (Late st Contact Info) Description 04/12/2011 Historical Note [facility] [employer] System Devyn Vásquez MD [address] [place] [address] [phone] Social History Tobacco Use Types Packs/Day Years [...] CARRILLO - [facility] [address] [facility] [address] [place] [phone] Brenda Clay MD [address] [facility] [address] [place] [address] 04/15/2026 10:00 AM EDT Office Visit [facility] + [facility] [address] [facility] [address] [place] [address] Sena Dominguez PA [address] [facility] [place] [address] documented as of this encounter Visit Diagnoses Not on filedocumented in this encounter Care Teams Field Traffic Investigator Relationship Specialty Start Date End Date Meme Steel MD [address] [place] [address] 105 [place] [address] PCP - General Pediatrics 06/05/18 04/25/22 No Pcp, Pcp PCP - General 06/08/22 07/19/22 Guadalupe Mcbride MD PCP - General Family Medicine 07/20/22 11/01/23 Sena Dominguez PA [address] [place] [address] [place] [address] PCP - BRADY Physician Computer Systems Design Analyst 11/02/23 Levy Barry MD [address] [place] [address] [place] [address] PCP - General Family Medicine 12/20/23 documented as of this encounter
--- OUTSIDE RECORDS SUMMARY | 2025-08-14 15:16 | XMS_ITS | Encounter Summary ---
Author Organization [facility] work ([facility]) Address [address] [place] [address] Care Team Providers Care New Accounts Clerk Name Role Phone Meme Steel MD Primary Care Provider [phone] Pcp, Pcp Primary Care Provider Unavailabl Guadalupe Bardales MD Primary Care Provider [phone] Sena Dominguez Unavailable [phone] Levy Barry MD Primary Care Provider Unavailab le Source Comments The information that you have received may contain highly confidential and/or federally protected health information. This information has been disclosed to you from records protected by [facility]. The law prohibits you [...] Contact Info) Description 11/25/2010 Historical Note [facility] for[MD] System Devyn Vásquez MD [address] [place] [address] [phone] Social History Tobacco Use Types Packs/Day Years [...] LEATHA CARRILLO - [facility] [address] [facility] [address] [place] [phone] Brenda Clay MD [address] [facility] [address] [place] [address] 04/15/2026 10:00 AM EDT Office Visit [facility]HA [facility] at [facility] + [facility] [address] [facility] [address] [place] [address] Sena Dominguez PA [address] [facility] [place] [address] documented as of this encounter Visit Diagnoses Not on filedocumented in this encounter Care Teams New Accounts Clerk Relationship Specialty Start Date End Date Meme Steel MD [address] [place] [address] 105 [place] [address] PCP - General Pediatrics 06/05/18 04/25/22 No Pcp, Pcp PCP - General 06/08/22 07/19/22 Guadalupe Mcbride MD PCP - General Family Medicine 07/20/22 11/01/23 Sena Dominguez PA [address] [place] [address] [place] [address] PCP - BRADY Physician Slope Hoist Operator 11/02/23 Levy Barry MD [address] [place] [address] [place] [address] PCP - General Family Medicine 12/20/23 documented as of this encounter
--- OUTSIDE RECORDS SUMMARY | 2025-08-14 15:16 | XMS_ITS | Encounter Summary ---
Author Organization [facility] work ([facility]) Address [address] [place] [address] Care Team Providers Care Manual Machinist Name Role Phone Meme Steel MD Primary Care Provider [phone] Pcp, Pcp Primary Care Provider Unavailabl Guadalupe Bardales MD Primary Care Provider [phone] Sena Dominguez Unavailable [phone] Levy Barry MD Primary Care Provider Unavailab le Source Comments The information that you have received may contain highly confidential and/or federally protected health information. This information has been disclosed to you from records protected by [facility]. The law prohibits you from [...] contact the sender immediately.[facility] ([facility]) Encounter Details Date Type Department Care Team (Late st Contact Info) Description 11/09/2005 Historical Note [facility] [employer] System Devyn Vásquez MD [address] [place] [address] [phone] Social History Tobacco Use Types Packs/Day Years [...] LEATHA CARRILLO - [facility] [address] [facility] [address] [place] [phone] Brenda Clay MD [address] [facility] [address] [place] [address] 04/15/2026 10:00 AM EDT Office Visit [facility] at [facility] + [facility] [address] [facility] [address] [place] [address] Sena Dominguez PA [address] [facility] [place] [address] documented as of this encounter Visit Diagnoses Not on filedocumented in this encounter Care Teams Manual Machinist Relationship Specialty Start Date End Date Meme Steel MD [address] [place] [address] 105 [place] [address] PCP - General Pediatrics 06/05/18 04/25/22 No Pcp, Pcp PCP - General 06/08/22 07/19/22 Guadalupe Mcbride MD PCP - General Family Medicine 07/20/22 11/01/23 Sena Dominguez PA [address] [place] [address] [place] [address] PCP - BRADY Physician Doctor Osteopathic 11/02/23 Levy Barry MD [address] [place] [address] [place] [address] PCP - General Family Medicine 12/20/23 documented as of this encounter
--- OUTSIDE RECORDS SUMMARY | 2025-08-14 15:16 | XMS_ITS | Encounter Summary ---
Author Organization [facility] work ([facility]) Address [address] [place] [address] Care Team Providers Care Emergency Response Coordinator Name Role Phone Meme Steel MD Primary Care Provider [phone] Pcp, Pcp Primary Care Provider Unavailabl Guadalupe Bardales MD Primary Care Provider [phone] Sena Dominguez Unavailable Levy Barry MD Primary Care Provider Unavailab le Source Comments The information that you have received may contain highly confidential and/or federally protected health information. This information has been disclosed to you from records protected by [facility]. The law prohibits [...] error, please contact the sender immediately.[facility] ([facility]) Encounter Details Date Type Department Care Team (Late st Contact Info) Description 12/15/2005 Historical Note [facility] [employer] System Devyn Vásquez MD [address] [place] [address] [phone] Social History Tobacco Use Types Packs/Day Years [...] LEATHA CARRILLO - [facility] [address] [facility] [address] [place] [phone] Brenda Clay MD [address] [facility] [address] [place] [address] 04/15/2026 10:00 AM EDT Office Visit [facility]HA [facility] + [facility] [address] [facility] [address] [place] [address] Sena Dominguez PA [address] [facility] [place] [address] documented as of this encounter Visit Diagnoses Not on filedocumented in this encounter Care Teams Emergency Response Coordinator Relationship Specialty Start Date End Date Meme Steel MD [address] [place] [address] 105 [place] [address] PCP - General Pediatrics 06/05/18 04/25/22 No Pcp, Pcp PCP - General 06/08/22 07/19/22 Guadalupe Mcbride MD PCP - General Family Medicine 07/20/22 11/01/23 Sena Dominguez PA [address] [place] [address] [place] [address] PCP - BRADY Physician Wireless Store Manager 11/02/23 Levy Barry MD [address] [place] [address] [place] [address] PCP - General Family Medicine 12/20/23 documented as of this encounter
--- OUTSIDE RECORDS SUMMARY | 2025-08-14 15:16 | XMS_ITS | Encounter Summary ---
Author Organization [facility] work ([facility]) Address [address] [place] [address] Care Team Providers Care Production Line Operator Name Role Phone Meme Steel MD Primary Care Provider [phone] Pcp, Pcp Primary Care Provider Unavailabl Guadalupe Bardales MD Primary Care Provider [phone] Sena Dominguez Unavailable [phone] Levy Barry MD Primary Care Provider Unavailab le Source Comments The information that you have received may contain highly confidential and/or federally protected health information. This information has been disclosed to you from records protected by [facility]. The law prohibits [...] [facility] ([facility]) Encounter Details Date Type Department Care Team (Late st Contact Info) Description 05/24/2012 Historical Note [facility] [employer] System Devyn Vásquez MD [address] [place] [address] [phone] Social History Tobacco Use Types Packs/Day Years [...] Visit LEATHA CARRILLO - [facility] [address] [facility] [address] [place] [phone] Brenda Clay MD [address] [facility] [address] [place] [phone] 04/15/2026 10:00 AM EDT Office Visit [facility] [address] [facility] [address] [place] [address] Sena Dominguez PA [address] [facility] [place] [address] documented as of this encounter Visit Diagnoses Not on filedocumented in this encounter Care Teams Production Line Operator Relationship Specialty Start Date End Date Meme Steel MD [address] [place] [address] 105 [place] [address] PCP - General Pediatrics 06/05/18 04/25/22 No Pcp, Pcp PCP - General 06/08/22 07/19/22 Guadalupe Mcbride MD PCP - General Family Medicine 07/20/22 11/01/23 Sena Dominguez PA [address] [place] [address] [place] [address] PCP - BRADY Physician Commodity Merchant 11/02/23 Levy Barry MD [address] [place] [address] [place] [address] PCP - General Family Medicine 12/20/23 documented as of this encounter
--- OUTSIDE RECORDS SUMMARY | 2025-08-14 15:16 | XMS_ITS | Encounter Summary ---
Author Organization [facility] work ([facility]) Address [address] [place] [address] Care Team Providers Care Leather Polisher Name Role Phone Meme Steel MD Primary Care Provider No Pcp, Pcp Primary Care Provider Unavailabl Guadalupe Bardales MD Primary Care Provider [phone] Sena Dominguez Unavailable [phone] Levy Barry MD Primary Care Provider Unavailab le Source Comments The information that you have received may contain highly confidential and/or federally protected health information. This information has been disclosed to you from records protected by [facility]. The law prohibits you from making [...] please contact the sender immediately.[facility] ([facility]) Encounter Details Date Type Department Care Team (Late st Contact Info) Description 03/09/2017 Historical Note [facility] [employer] System Devyn Vásquez MD [address] [place] [address] [phone] Social History Tobacco Use Types Packs/Day Years [...] Visit LEATHA CARRILLO - [facility] [address] [facility] [address] [place] [phone] Brenda Clay MD [address] [facility] [address] [place] [address] 04/15/2026 10:00 AM EDT Office Visit LEATHA [facility] at [facility] + [facility] [address] [facility] [address] [place] [address] Sena Dominguez PA [address] [facility] [place] [address] documented as of this encounter Visit Diagnoses Not on filedocumented in this encounter Care Teams Leather Polisher Relationship Specialty Start Date End Date Meme Steel MD [address] [place] [address] 105 [place] [address] PCP - General Pediatrics 06/05/18 04/25/22 No Pcp, Pcp PCP - General 06/08/22 07/19/22 Guadalupe Mcbride MD PCP - General Family Medicine 07/20/22 11/01/23 Sena Dominguez PA [address] [place] [address] [place] [address] PCP - BRADY Physician Wheat Combine Driver 11/02/23 Levy Barry MD [address] [place] [address] [place] [address] PCP - General Family Medicine 12/20/23 documented as of this encounter
--- OUTSIDE RECORDS SUMMARY | 2025-08-14 15:16 | XMS_ITS | Encounter Summary ---
Author Organization [facility] work ([facility]) Address [address] [facility] [address] [place] [address] Care Team Providers Care Reinforcement Maker Name Role Phone Meme Steel MD Primary Care Provider [phone] Pcp, Pcp Primary Care Provider Unavailabl Guadalupe Bardales MD Primary Care Provider [phone] Sena Dominguez Unavailable [phone] Levy Barry MD Primary Care Provider Unavailab le Source Comments The information that you have received may contain highly confidential and/or federally protected health information. This information has been disclosed to you from records protected by [facility]. The law prohibits you [...] contact the sender immediately.[facility] ([facility]) Encounter Details Date Type Department Care Team (Late st Contact Info) Description 04/15/2011 Historical Note [facility] [employer] System Devyn Vásquez MD [address] [place] [address] [phone] Social History Tobacco Use Types Packs/Day Years [...] Visit LEATHA CARRILLO - [facility] [address] [facility] [address] [place] [phone] Bredna Clay MD [address] [facility] [address] [place] [address] 04/15/2026 10:00 AM EDT Office Visit LEATHA [facility] at [facility] + [facility] [address] [facility] [address] [place] [address] Sena Dominguez PA [address] [facility] [place] [address] documented as of this encounter Visit Diagnoses Not on filedocumented in this encounter Care Teams Reinforcement Maker Relationship Specialty Start Date End Date Meme Steel MD [address] [place] [address] 105 [place] [address] PCP - General Pediatrics 06/05/18 04/25/22 No Pcp, Pcp PCP - General 06/08/22 07/19/22 Guadalupe Mcbride MD PCP - General Family Medicine 07/20/22 11/01/23 Sena Dominguez PA [address] [place] [address] [place] [address] PCP - BRADY Physician Protein Purification Scientist 11/02/23 Levy Barry MD [address] [place] [address] [place] [address] PCP - General Family Medicine 12/20/23 documented as of this encounter
--- OUTSIDE RECORDS SUMMARY | 2025-08-14 15:16 | XMS_ITS | Encounter Summary ---
Author Organization [facility] work ([facility]) Address [address] [facility] [address] [place] [address] Care Team Providers Care Buttoner Name Role Phone Meme Steel MD Primary Care Provider [phone] No Pcp, Pcp Primary Care Provider Unavailabl Guadalupe Bardales MD Primary Care Provider [phone] Sena Dominguez Unavailable [phone] Levy Barry MD Primary Care Provider Unavailab le Source Comments The information that you have received may contain highly confidential and/or federally protected health information. This information has been disclosed to you from records protected by [employer]. The law prohibits you from [...] immediately.[facility] ([facility]) Encounter Details Date Type Department Care Team (Late st Contact Info) Description 04/12/2011 Historical Note [facility] [employer] System Devyn Vásquez MD [address] [place] [address] [phone] Social History Tobacco Use Types Packs/Day Years [...] CARRILLO - [facility] [address] [facility] [address] [place] [phone] Brenda Clay MD [address] [facility] [address] [place] [address] 04/15/2026 10:00 AM EDT Office Visit [facility]HA [facility] + [facility] [address] [facility] [address] [place] [address] Sena Dominguez PA [address] [facility] [place] [address] documented as of this encounter Visit Diagnoses Not on filedocumented in this encounter Care Teams Buttoner Relationship Specialty Start Date End Date Meme Steel MD [address] [place] [address] 105 [place] [address] PCP - General Pediatrics 06/05/18 04/25/22 No Pcp, Pcp PCP - General 06/08/22 07/19/22 Guadalupe Mcbride MD PCP - General Family Medicine 07/20/22 11/01/23 Sena Dominguez PA [address] [place] [address] [place] [address] PCP - BRADY Physician Polygraph Operator 11/02/23 Levy Barry MD [address] [place] [address] [place] [address] PCP - General Family Medicine 12/20/23 documented as of this encounter
--- OUTSIDE RECORDS SUMMARY | 2025-08-14 15:16 | XMS_ITS | Encounter Summary ---
Author Organization [facility] work ([facility]) Address [address] [place] [address] Care Team Providers Care Calender Wind Up Tender Name Role Phone Meme Steel MD Primary Care Provider [phone] No Pcp, Pcp Primary Care Provider Unavailabl Guadalupe Bardales MD Primary Care Provider [phone] Sena Dominguez Unavailable [phone] Levy Barry MD Primary Care Provider Unavailab le Source Comments The information that you have received may contain highly confidential and/or federally protected health information. This information has been disclosed to you from records protected by [facility]. The law prohibits you from [...] the sender immediately.[facility] ([facility]) Encounter Details Date Type Department Care Team (Late st Contact Info) Description 04/15/2011 Historical Note [facility] [employer]Mind System Devyn Vásquez MD [address] [place] [address] [phone] Social History Tobacco Use Types Packs/Day Years [...] CARRILLO - [facility] [address] [facility] [address] [place] [phone] Brenda Clay MD [address] [facility] [address] [place] [address] 04/15/2026 10:00 AM EDT Office Visit LE[facility]HA [facility] at [facility] + [facility] [address] [facility] [address] [place] [address] Sena Dominguez PA [address] [facility] [place] [address] documented as of this encounter Visit Diagnoses Not on filedocumented in this encounter Care Teams Calender Wind Up Tender Relationship Specialty Start Date End Date Mmee Steel MD [address] [place] [address] 105 [place] [address] PCP - General Pediatrics 06/05/18 04/25/22 No Pcp, Pcp PCP - General 06/08/22 07/19/22 Guadalupe Mcbride MD PCP - General Family Medicine 07/20/22 11/01/23 Sena Dominguez PA [address] [place] [address] [place] [address] PCP - BRADY Physician Irrigation Equipment Installer 11/02/23 Levy Barry MD [address] [place] [address] [place] [address] PCP - General Family Medicine 12/20/23 documented as of this encounter
--- OUTSIDE RECORDS SUMMARY | 2025-08-14 15:16 | XMS_ITS | Encounter Summary ---
Author Organization [facility] work ([facility]) Address [address] [facility] [address] [place] [address] Care Team Providers Care Esl Instructional Assistant Name Role Phone Meme Steel MD Primary Care Provider [phone] Pcp, Pcp Primary Care Provider Unavailabl e Guadalupe Mcbride MD Primary Care Provider [phone] Sena Dominguez Unavailable [phone] Levy Barry MD Primary Care Provider Unavailab le Source Comments The information that you have received may contain highly confidential and/or federally protected health information. This information has been disclosed to you from records protected by [facility]. The law prohibits you from [...] the sender immediately.[facility] ([facility]) Encounter Details Date Type Department Care Team (Late st Contact Info) Description 10/31/2017 Historical Note [facility] Primary Care - [facility] - [address] [place] [address] Devyn Vásquez MD [facility] [address] Social History Tobacco Use Types Packs/Day Years Used Date Smoking Tobacco: Never Assessed Comments Unknown Sex and Gender Information Value Date Recorded Sex Assigned at Not on file Legal Sex Female 1:04 AM EDT Gender Identity Not on file Sexual Orientation Not on file documented as of this encounter Plan of Treatment Upcoming Encounters Date Type Department Care Team ([facility] st Contact Info) Description 10/10/2025 10:00 AM EST Office Visit LEATHA OBLYNETTEN [facility] [address] [facility] [address] [place] [address] Brenda Clay MD [address] [facility] [address] [place] [phone] 04/15/2026 10:00 AM EDT Office Visit [facility]HA [facility] at [facility] + [facility] [address] [facility] [address] [place] [address] Sena Dominguez PA [address] [place] [address] [place] [address] documented as of this encounter Visit Diagnoses Not on filedocumented in this encounter Care Teams Esl Instructional Assistant Relationship Specialty Start Date End Date Meme Steel MD [address] [place] [address] [place] [address] PCP - General Pediatrics 06/05/18 04/25/22 No Pcp, Pcp PCP - General 06/08/22 07/19/22 Guadalupe Mcbride MD PCP - General Family Medicine 07/20/22 11/01/23 Sena Dominguez PA [address] [place] [address] [place] [address] PCP - BRADY Physician Script Writer 11/02/23 Levy Barry MD [address] [facility] [place] [address] PCP - General Family Medicine 12/20/23 documented as of this encounter
--- OUTSIDE RECORDS SUMMARY | 2025-08-14 15:16 | XMS_ITS | Encounter Summary ---
Author Organization [facility] work ([facility]) Address [address] [address] [place] [address] Care Team Providers Care Metal Drawer Name Role Phone Meme Steel MD Primary Care Provider [phone] Pcp, Pcp Primary Care Provider Unavailabl Guadalupe Bardales MD Primary Care Provider [phone] Sena Dominguez Unavailable [phone] Levy Barry MD Primary Care Provider Unavailab le Source Comments The information that you have received may contain highly confidential and/or federally protected health information. This information has been disclosed to you from records protected by [facility]. The law prohibits you from [...] contact the sender immediately.[facility] ([facility]) Encounter Details Date Type Department Care Team (Late st Contact Info) Description 11/03/2005 Historical Note [facility] [employer] Devyn Vásquez MD [address] [place] [address] [phone] Social History Tobacco Use Types Packs/Day Years [...] - [facility] [address] [facility] [address] [place] [phone] Brenda Clay MD [address] [facility] [address] [place] [address] 04/15/2026 10:00 AM EDT Office Visit LEATHA Primary [facility] at [facility] + [facility] [address] [facility] [address] [place] [address] Sena Dominguez PA [address] [facility] [place] [address] documented as of this encounter Visit Diagnoses Not on filedocumented in this encounter Care Teams Metal Drawer Relationship Specialty Start Date End Date Meme Steel MD [address] [place] [address] 105 [place] [address] PCP - General Pediatrics 06/05/18 04/25/22 No Pcp, Pcp PCP - General 06/08/22 07/19/22 Guadalupe Mcbride MD PCP - General Family Medicine 07/20/22 11/01/23 Sena Dominguez PA [address] [place] [address] [place] [address] PCP - BRADY Physician Automatic Transmission Mechanic 11/02/23 Levy Barry MD [address] [place] [address] [place] [address] PCP - General Family Medicine 12/20/23 documented as of this encounter
--- OUTSIDE RECORDS SUMMARY | 2025-08-14 15:16 | XMS_ITS | Encounter Summary ---
Author Organization [facility] work ([facility]) Address [address] [place] [address] Care Team Providers Care Receiving Manager Name Role Phone Meme Steel MD Primary Care Provider [phone] Pcp, Pcp Primary Care Provider Unavailabl Guadalupe Bardaels MD Primary Care Provider [phone] Sena Dominguez Unavailable [phone] Levy Barry MD Primary Care Provider Unavailab le Source Comments The information that you have received may contain highly confidential and/or federally protected health information. This information has been disclosed to you from records protected by [facility]. The law prohibits you [...] contact the sender immediately.[facility] ([facility]) Encounter Details Date Type Department Care Team (Late st Contact Info) Description 09/21/2010 Historical Note [facility] Oonair System Devyn Vásuqez MD [address] [place] [address] [phone] Social History Tobacco Use Types Packs/Day Years [...] Visit LEATHA CARRILLO - [facility] [address] [facility] [address] [place] [phone] Brenda Clay MD [address] [facility] [address] [place] [address] 04/15/2026 10:00 AM EDT Office Visit LEATHA Primary Care at [facility] + [facility] [address] [facility] [address] [place] [address] Sena Dominguez PA [address] [facility] [place] [address] documented as of this encounter Visit Diagnoses Not on filedocumented in this encounter Care Teams Receiving Manager Relationship Specialty Start Date End Date Meme Steel MD [address] [place] [address] 105 [place] [address] PCP - General Pediatrics 06/05/18 04/25/22 No Pcp, Pcp PCP - General 06/08/22 07/19/22 Guadalupe Mcbride MD PCP - General Family Medicine 07/20/22 11/01/23 Sena Dominguez PA [address] [place] [address] [place] [address] PCP - BRADY Physician Machine Turner 11/02/23 Levy Barry MD [address] [place] [address] [place] [address] PCP - General Family Medicine 12/20/23 documented as of this encounter
--- OUTSIDE RECORDS SUMMARY | 2025-08-14 15:16 | XMS_ITS | Encounter Summary ---
Author Organization [facility] work ([facility]) Address [address] [place] [address] Care Team Providers Care Healthcare Translator Name Role Phone Meme Steel MD Primary Care Provider [phone] Pcp, Pcp Primary Care Provider Unavailabl Guadalupe Bardales MD Primary Care Provider [phone] Sena Dominguez Unavailable [phone] Levy Barry MD Primary Care Provider Unavailab le Source Comments The information that you have received may contain highly confidential and/or federally protected health information. This information has been disclosed to you from records protected by [facility]. The law prohibits [...] sender immediately.[facility] ([facility]) Encounter Details Date Type Department Care Team (Late st Contact Info) Description 11/04/2005 Historical Note [facility] Virtual [employer] Systems System Devyn Vásquez MD [address] [place] [address] [phone] Social History Tobacco Use Types Packs/Day Years [...] - [facility] [address] [facility] [address] [place] [phone] rBenda Clay MD [address] [facility] [address] [place] [address] 04/15/2026 10:00 AM EDT Office Visit LEATHA [facility] at [facility] + [facility] [address] [facility] [address] [place] [phone] Sena Dominguez PA [address] [facility] [place] [address] documented as of this encounter Visit Diagnoses Not on filedocumented in this encounter Care Teams Healthcare Translator Relationship Specialty Start Date End Date Meme Steel MD [address] [place] [address] 105 [place] [address] PCP - General Pediatrics 06/05/18 04/25/22 No Pcp, Pcp PCP - General 06/08/22 07/19/22 Guadalupe Mcbride MD PCP - General Family Medicine 07/20/22 11/01/23 Sena Dominguez PA [address] [place] [address] [place] [address] PCP - BRADY Physician Window Framer 11/02/23 Levy Barry MD [address] [place] [address] [place] [address] PCP - General Family Medicine 12/20/23 documented as of this encounter
--- OUTSIDE RECORDS SUMMARY | 2025-08-14 15:16 | XMS_ITS | Encounter Summary ---
Author Organization [facility] work ([facility]) Address [address] [facility] [address] [place] [address] Care Team Providers Care Audio Recording Engineer Name Role Phone Meme Steel MD Primary Care Provider [phone] Pcp, Pcp Primary Care Provider Unavailabl Guadalupe Bardales MD Primary Care Provider [phone] Sena Dominguez Unavailable [phone] Levy Barry MD Primary Care Provider Unavailab le Source Comments The information that you have received may contain highly confidential and/or federally protected health information. This information has been disclosed to you from records protected by [facility]. The law prohibits you [...] contact the sender immediately.[facility] ([facility]) Encounter Details Date Type Department Care Team (Late st Contact Info) Description 09/29/2011 Historical Note [facility] Goozzy System Devyn Vásquez MD [address] [place] [address] [phone] Social History Tobacco Use Types Packs/Day Years [...] LEATHA CARRILLO - [facility] [address] [facility] [address] [place] [phone] Brenda Clay MD [address] [facility] [address] [place] [address] 04/15/2026 10:00 AM EDT Office Visit LE[facility]HA [facility] at [facility] [address] [facility] [address] [place] [address] Sena Dominguez PA [address] [facility] [place] [address] documented as of this encounter Visit Diagnoses Not on filedocumented in this encounter Care Teams Audio Recording Engineer Relationship Specialty Start Date End Date Meme Steel MD [address] [place] [address] 105 [place] [address] PCP - General Pediatrics 06/05/18 04/25/22 No Pcp, Pcp PCP - General 06/08/22 07/19/22 Guadalupe Mcbride MD PCP - General Family Medicine 07/20/22 11/01/23 Sena Dominguez PA [address] [place] [address] [place] [address] PCP - BRADY Physician Recessing Machine Operator 11/02/23 Levy Barry MD [address] [place] [address] [place] [address] PCP - General Family Medicine 12/20/23 documented as of this encounter
--- OUTSIDE RECORDS SUMMARY | 2025-08-14 15:16 | XMS_ITS | Encounter Summary ---
Author Organization [facility] work ([facility]) Address [address] [facility] [address] [place] [address] Care Team Providers Care Bank Worker Name Role Phone Meme Steel MD Primary Care Provider [phone] Pcp, Pcp Primary Care Provider Unavailabl Guadalupe Bardales MD Primary Care Provider [phone] Sena Dominguez Unavailable [phone] Levy Barry MD Primary Care Provider Unavailab le Source Comments The information that you have received may contain highly confidential and/or federally protected health information. This information has been disclosed to you from records protected by [employer]. The law prohibits you from [...] Contact Info) Description 02/08/2006 Historical Note [facility] ProFounder System Devyn Vásquez MD [address] [place] [address] [phone] Social History Tobacco Use Types Packs/Day Years [...] CARRILLO - [facility] [address] [facility] [address] [place] [phone] Brenda Clay MD [address] [facility] [address] [place] [address] 04/15/2026 10:00 AM EDT Office Visit LEATHA [facility] at [facility] + [facility] [address] [facility] [address] [place] [address] Sena Dominguez PA [address] [facility] [place] [address] documented as of this encounter Visit Diagnoses Not on filedocumented in this encounter Care Teams Bank Worker Relationship Specialty Start Date End Date Meme Steel MD [address] [place] [address] 105 [place] [address] PCP - General Pediatrics 06/05/18 04/25/22 No Pcp, Pcp PCP - General 06/08/22 07/19/22 Guadalupe Mcbride MD PCP - General Family Medicine 07/20/22 11/01/23 Sena Dominguez PA [address] [place] [address] [place] [address] PCP - BRADY Physician Global Climate Change Analyst 11/02/23 Levy Barry MD [address] [place] [address] [place] [address] PCP - General Family Medicine 12/20/23 documented as of this encounter
--- OUTSIDE RECORDS SUMMARY | 2025-08-14 15:16 | XMS_ITS | Encounter Summary ---
Author Organization [facility] work ([facility]) Address [address] [place] [address] Care Team Providers Care Powder Blender And Pourer Name Role Phone Meme Steel MD Primary Care Provider [phone] Pcp, Pcp Primary Care Provider Unavailabl Guadalupe Bardales MD Primary Care Provider [phone] Sena Dominguez Unavailable Levy Barry MD Primary Care Provider Unavailab le Source Comments The information that you have received may contain highly confidential and/or federally protected health information. This information has been disclosed to you from records protected by [facility]. The law prohibits you [...] Contact Info) Description 02/08/2006 Historical Note [facility] GoGuide System Devyn Vásquez MD [address] [place] [address] [phone] Social History Tobacco Use Types Packs/Day Years [...] CARRILLO - [facility] at [facility] [address] [facility] [address] [place] [phone] Brenda Clay MD [address] [facility] [address] [place] [phone] 04/15/2026 10:00 AM EDT Office Visit LEATHA Primary [facility] at [facility] + [facility] [address] [facility] [address] [place] [address] Sena Dominguez PA [address] [facility] [place] [address] documented as of this encounter Visit Diagnoses Not on filedocumented in this encounter Care Teams Powder Blender And Pourer Relationship Specialty Start Date End Date Meme Steel MD [address] [place] [address] 105 [place] [address] PCP - General Pediatrics 06/05/18 04/25/22 No Pcp, Pcp PCP - General 06/08/22 07/19/22 Guadalupe Mcbride MD PCP - General Family Medicine 07/20/22 11/01/23 Sena Dominguez PA [address] [place] [address] [place] [address] PCP - BRADY Physician Picker Machine Operator 11/02/23 Levy Barry MD [address] [place] [address] [place] [address] PCP - General Family Medicine 12/20/23 documented as of this encounter
--- OUTSIDE RECORDS SUMMARY | 2025-08-14 15:16 | XMS_ITS | Encounter Summary ---
Author Organization [facility] work ([facility]) Address [address] [place] [address] Care Team Providers Care School Age Program Teacher Name Role Phone Meme Steel MD Primary Care Provider [phone] Pcp, Pcp Primary Care Provider Unavailabl Guadalupe Bardales MD Primary Care Provider [phone] Sena Dominguez Unavailable [phone] Levy Barry MD Primary Care Provider Unavailab le Source Comments The information that you have received may contain highly confidential and/or federally protected health information. This information has been disclosed to you from records protected by [facility]. The law prohibits you from [...] please contact the sender immediately.[facility] ([facility]) Encounter Details Date Type Department Care Team (Late st Contact Info) Description 05/24/2012 Historical Note [facility] [employer] System Devyn Vásquez MD [address] [place] [phone] Social History Tobacco Use Types Packs/Day Years [...] [place] [facility] [address] [facility] [address] [place] [phone] Brenda Clay MD [address] [facility] [address] [place] [address] 04/15/2026 10:00 AM EDT Office Visit LEATHA [facility] at [facility] + [facility] [address] [facility] [address] [place] [address] Sena Dominguez PA [address] [facility] [place] [address] documented as of this encounter Visit Diagnoses Not on filedocumented in this encounter Care Teams School Age Program Teacher Relationship Specialty Start Date End Date Meme Steel MD [address] [place] [address] [place] [address] PCP - General Pediatrics 06/05/18 04/25/22 No Pcp, Pcp PCP - General 06/08/22 07/19/22 Guadalupe Mcbride MD PCP - General Family Medicine 07/20/22 11/01/23 Sena Dominguez PA [address] [place] [address] [place] [address] PCP - BRADY Physician Traffic Expert 11/02/23 Levy Barry MD [address] [place] [address] [place] [address] PCP - General Family Medicine 12/20/23 documented as of this encounter
--- OUTSIDE RECORDS SUMMARY | 2025-08-14 15:16 | XMS_ITS | Encounter Summary ---
Author Organization [facility] work ([facility]) Address [address] [place] [address] Care Team Providers Care Medical Payment Poster Name Role Phone Meme Steel MD Primary Care Provider [phone] Pcp, Pcp Primary Care Provider Unavailabl Guadalupe Bardales MD Primary Care Provider [phone] Sena Dominguez Unavailable [phone] Levy Barry MD Primary Care Provider Unavailab le Source Comments The information that you have received may contain highly confidential and/or federally protected health information. This information has been disclosed to you from records protected by [facility]. The law prohibits you from [...] please contact the sender immediately.[facility] ([facility]) Encounter Details Date Type Department Care Team (Late st Contact Info) Description 10/18/2005 Historical Note [facility] Concert Window System Devyn Vásquez MD [address] [place] [address] [phone] Social History Tobacco Use Types Packs/Day Years [...] - [facility] [address] [facility] [address] [place] [phone] Brenda Clay MD [address] [facility] [address] [place] [phone] 04/15/2026 10:00 AM EDT Office Visit LEATHA [facility] [address] [facility] [address] [place] [address] Sena Dominguez PA [address] [facility] [place] [address] documented as of this encounter Visit Diagnoses Not on filedocumented in this encounter Care Teams Medical Payment Poster Relationship Specialty Start Date End Date Meme Steel MD [address] [place] [address] 105 [place] [address] PCP - General Pediatrics 06/05/18 04/25/22 No Pcp, Pcp PCP - General 06/08/22 07/19/22 Guadalupe Mcbride MD PCP - General Family Medicine 07/20/22 11/01/23 Sena Dominguez PA [address] [place] [address] [place] [address] PCP - BRADY Physician Certified Wellness Program Manager 11/02/23 Levy Barry MD [address] [place] [address] [place] [address] PCP - General Family Medicine 12/20/23 documented as of this encounter
--- OUTSIDE RECORDS SUMMARY | 2025-08-14 15:16 | XMS_ITS | Encounter Summary ---
Author Organization [facility] work ([facility]) Address [address] [facility] [address] [place] [address] Care Team Providers Care Alcohol Law Enforcement Agent Name Role Phone Meme Steel MD Primary Care Provider [phone] No Pcp, Pcp Primary Care Provider Unavailabl Guadalupe Bardales MD Primary Care Provider [phone] Sena Dominguez Unavailable [phone] Levy Barry MD Primary Care Provider Unavailab le Source Comments The information that you have received may contain highly confidential and/or federally protected health information. This information has been disclosed to you from records protected by [facility]. The law prohibits you [...] please contact the sender immediately.[facility] ([facility]) Encounter Details Date Type Department Care Team (Late st Contact Info) Description 03/09/2017 Historical Note [facility] Nubimetrics System Devyn Vásquez MD [address] [place] [address] [phone] Social History Tobacco Use Types Packs/Day Years [...] LEATHA CARRILLO - [facility] [address] [facility] [address] [place] [phone] Brenda Clay MD [address] [facility] [address] [place] [phone] 04/15/2026 10:00 AM EDT Office Visit LE[facility]HA [facility] at [facility] + [facility] [address] [facility] [address] [place] [phone] Sena Dominguez PA [address] [facility] [place] [address] documented as of this encounter Visit Diagnoses Not on filedocumented in this encounter Care Teams Alcohol Law Enforcement Agent Relationship Specialty Start Date End Date Meme Steel MD [address] [place] [address] 105 [place] [address] PCP - General Pediatrics 06/05/18 04/25/22 No Pcp, Pcp PCP - General 06/08/22 07/19/22 Guadalupe Mcbride MD PCP - General Family Medicine 07/20/22 11/01/23 Sena Dominguez PA [address] [place] [address] [place] [address] PCP - BRADY Physician Kiln Furniture Caster 11/02/23 Levy Barry MD [address] [place] [address] [place] [address] PCP - General Family Medicine 12/20/23 documented as of this encounter
--- OUTSIDE RECORDS SUMMARY | 2025-08-14 15:16 | XMS_ITS | Encounter Summary ---
Author Organization [facility] work ([facility]) Address [address] [place] [address] Care Team Providers Care Negative Assembler Name Role Phone Meme Steel MD Primary Care Provider [phone] Pcp, Pcp Primary Care Provider Unavailabl Guadalupe Bardales MD Primary Care Provider [phone] Sena Dominguez Unavailable [phone] Levy Barry MD Primary Care Provider Unavailab le Source Comments The information that you have received may contain highly confidential and/or federally protected health information. This information has been disclosed to you from records protected by [facility]. The law prohibits [...] please contact the sender immediately.[facility] ([facility]) Encounter Details Date Type Department Care Team (Late st Contact Info) Description 04/15/2011 Historical Note [facility] BubbleGab System Devyn Vásquez MD [address] [place] [address] [phone] Social History Tobacco Use Types Packs/Day Years [...] LEATHA CARRILLO - [facility] [address] [facility] [address] [place] [phone] Brenda Clay MD [address] [facility] [address] [place] [address] 04/15/2026 10:00 AM EDT Office Visit [facility]HA [facility] at [facility] + [facility] [address] [facility] [address] [place] [address] Sena Dominguez PA [address] [facility] [place] [address] documented as of this encounter Visit Diagnoses Not on filedocumented in this encounter Care Teams Negative Assembler Relationship Specialty Start Date End Date Meme Steel MD [address] [place] [address] [place] [address] PCP - General Pediatrics 06/05/18 04/25/22 No Pcp, Pcp PCP - General 06/08/22 07/19/22 Guadalupe Mcbride MD PCP - General Family Medicine 07/20/22 11/01/23 Sena Dominguez PA [address] [place] [address] [place] [address] PCP - BRADY Physician Emergency Room Clinician 11/02/23 Levy Barry MD [address] [place] [address] [place] [address] PCP - General Family Medicine 12/20/23 documented as of this encounter
--- OUTSIDE RECORDS SUMMARY | 2025-08-14 15:16 | XMS_ITS | Encounter Summary ---
Author Organization [facility] work ([facility]) Address [address] [place] [address] Care Team Providers Care Will Call Order Clerk Name Role Phone Meme Steel MD Primary Care Provider [phone] Pcp, Pcp Primary Care Provider Unavailabl Guadalupe Bardales MD Primary Care Provider [phone] Sena Dominguez Unavailable [phone] Levy Barry MD Primary Care Provider Unavailab le Source Comments The information that you have received may contain highly confidential and/or federally protected health information. This information has been disclosed to you from records protected by [facility]. The law prohibits you from [...] please contact the sender immediately.[facility] ([facility]) Encounter Details Date Type Department Care Team (Late st Contact Info) Description 11/25/2010 Historical Note [facility] Bid Nerd System Devyn Vásquez MD [address] [place] [address] [phone] Social History Tobacco Use Types Packs/Day Years [...] LEATHA CARRILLO - [facility] [address] [facility] [address] [place] [phone] Brenda Clay MD [address] [facility] [address] [place] [address] 04/15/2026 10:00 AM EDT Office Visit LEATHA Primary [facility] at [facility] + [facility] [address] [facility] [address] [place] [address] Sena Dominguez PA [address] [facility] [place] [address] documented as of this encounter Visit Diagnoses Not on filedocumented in this encounter Care Teams Will Call Order Clerk Relationship Specialty Start Date End Date Meme Steel MD [address] [place] [address] 105 [place] [address] PCP - General Pediatrics 06/05/18 04/25/22 No Pcp, Pcp PCP - General 06/08/22 07/19/22 Guadalupe Mcbride MD PCP - General Family Medicine 07/20/22 11/01/23 Sena Dominguez PA [address] [place] [address] [place] [address] PCP - BRADY Physician Chalk Molding Machine Operator 11/02/23 Levy Barry MD [address] [place] [address] [place] [address] PCP - General Family Medicine 12/20/23 documented as of this encounter
--- OUTSIDE RECORDS SUMMARY | 2025-08-14 15:16 | XMS_ITS | Encounter Summary ---
Author Organization [facility] work ([facility] Address [address] [place] [address] Care Team Providers Care Engineering Documentation Specialist Name Role Phone Meme Steel MD Primary Care Provider [phone] No Pcp, Pcp Primary Care Provider Unavailabl Guadalupe Bardales MD Primary Care Provider [phone] Sena Dominguez Unavailable Levy Barry MD Primary Care Provider Unavailab le Source Comments The information that you have received may contain highly confidential and/or federally protected health information. This information has been disclosed to you from records protected by [facility]. The law prohibits you [...] please contact the sender immediately.[facility] ([facility] Encounter Details Date Type Department Care Team (Late st Contact Info) Description 11/06/2005 Historical Note [facility] [employer] System Devyn Vásquez MD [address] [place] [address] [phone] Social History Tobacco Use Types Packs/Day Years [...] CARRILLO - [facility] [address] [facility] [address] [place] [phone] Brenda Clay MD [address] [facility] [address] [place] [address] 04/15/2026 10:00 AM EDT Office Visit LEATHA [facility] at [facility] [address] [facility] [address] [place] [address] Sena Dominguez PA [address] [facility] [place] [address] documented as of this encounter Visit Diagnoses Not on filedocumented in this encounter Care Teams Engineering Documentation Specialist Relationship Specialty Start Date End Date Meme Steel MD [address] [place] [address] 105 [place] [address] PCP - General Pediatrics 06/05/18 04/25/22 No Pcp, Pcp PCP - General 06/08/22 07/19/22 Guadalupe Mcbride MD PCP - General Family Medicine 07/20/22 11/01/23 Sena Dominguez PA [address] [place] [address] [place] [address] PCP - BRADY Physician Professor Of Food Biochemistry 11/02/23 Levy Barry MD [address] [place] [address] [place] [address] PCP - General Family Medicine 12/20/23 documented as of this encounter
--- OUTSIDE RECORDS SUMMARY | 2025-08-14 15:16 | XMS_ITS | Encounter Summary ---
Author Organization [facility] work ([facility]) Address [address] [place] [address] Care Team Providers Care Shuttle Preparation Supervisor Name Role Phone Meme Steel MD Primary Care Provider [phone] Pcp, Pcp Primary Care Provider Unavailabl Guadalupe Bardales MD Primary Care Provider [phone] Sena Dominguez Unavailable [phone] Levy Barry MD Primary Care Provider Unavailab le Source Comments The information that you have received may contain highly confidential and/or federally protected health information. This information has been disclosed to you from records protected by [facility]. The law prohibits you from [...] the sender immediately.[facility] ([facility]) Encounter Details Date Type Department Care Team (Late st Contact Info) Description 02/08/2006 Historical Note [facility] Innography System Devyn Vásquez MD [address] [place] [address] [phone] Social History Tobacco Use Types Packs/Day Years [...] Visit LEATHA CARRILLO - [facility] [address] [facility] [address] [place] [phone] Brenda Clay MD [address] [facility] [address] [place] [address] 04/15/2026 10:00 AM EDT Office Visit LEATHA Primary [facility] at [facility] + [facility] [address] [facility] [address] [place] [address] Sena Dominguez PA [address] [facility] [place] [address] documented as of this encounter Visit Diagnoses Not on filedocumented in this encounter Care Teams Shuttle Preparation Supervisor Relationship Specialty Start Date End Date Meme Steel MD [address] [place] [address] 105 [place] [address] PCP - General Pediatrics 06/05/18 04/25/22 No Pcp, Pcp PCP - General 06/08/22 07/19/22 Guadalupe Mcbride MD PCP - General Family Medicine 07/20/22 11/01/23 Sena Dominguez PA [address] [place] [address] [place] [address] PCP - BRADY Physician Christian Science Practitioner 11/02/23 Levy Barry MD [address] [place] [address] [place] [address] PCP - General Family Medicine 12/20/23 documented as of this encounter
--- OUTSIDE RECORDS SUMMARY | 2025-08-14 15:16 | XMS_ITS | Encounter Summary ---
Author Organization [facility] work ([facility]) Address [address] [place] [address] Care Team Providers Care Warehouse Operator Name Role Phone Meme tSeel MD Primary Care Provider [phone] Pcp, Pcp Primary Care Provider Unavailabl Guadalupe Bardales MD Primary Care Provider [phone] Sena Dominguez Unavailable [phone] Levy Barry MD Primary Care Provider Unavailab le Source Comments The information that you have received may contain highly confidential and/or federally protected health information. This information has been disclosed to you from records protected by [facility]. The law prohibits [...] please contact the sender immediately.[facility] ([facility]) Encounter Details Date Type Department Care Team (Late st Contact Info) Description 04/14/2011 Historical Note [facility] Price Ignite [employer] System Devyn Vásquez MD [address] [place] [address] [phone] Social History Tobacco Use Types Packs/Day Years [...] LEATHA CARRILLO - [facility] [address] [facility] [address] [place] [phone] Brenda Clay MD [address] [facility] [address] [place] [address] 04/15/2026 10:00 AM EDT Office Visit LE[facility]HA [facility] at [facility] + [facility] [address] [facility] [address] [place] [address] Sena Dominguez PA [address] [facility] [place] [address] documented as of this encounter Visit Diagnoses Not on filedocumented in this encounter Care Teams Warehouse Operator Relationship Specialty Start Date End Date Meme Steel MD [address] [place] [address] 105 [place] [address] PCP - General Pediatrics 06/05/18 04/25/22 No Pcp, Pcp PCP - General 06/08/22 07/19/22 Guadalupe Mcbride MD PCP - General Family Medicine 07/20/22 11/01/23 Sena Dominguez PA [address] [place] [address] [place] [address] PCP - BRADY Physician Buffing Machine Operator Semiautomatic 11/02/23 Levy Barry MD [address] [place] [address] [place] [address] PCP - General Family Medicine 12/20/23 documented as of this encounter
--- OUTSIDE RECORDS SUMMARY | 2025-08-14 15:16 | XMS_ITS | Encounter Summary ---
Author Organization [facility] work ([facility]) Address [address] [place] [address] Care Team Providers Care Garage Door Service Technician Name Role Phone Meme Steel MD Primary Care Provider [phone] Pcp, Pcp Primary Care Provider Unavailabl Guadalupe Bardales MD Primary Care Provider [phone] Sena Dominguez Unavailable [phone] Levy Barry MD Primary Care Provider Unavailab le Source Comments The information that you have received may contain highly confidential and/or federally protected health information. This information has been disclosed to you from records protected by [facility]. The law prohibits you from making [...] sender immediately.[facility] ([facility]) Encounter Details Date Type Department Care Team (Late st Contact Info) Description 11/07/2005 Historical Note [facility] [email or web address] System Devyn Vásquez MD [address] [place] [address] [phone] Social History Tobacco Use Types Packs/Day Years [...] LEATHA CARRILLO - [facility] at [facility] [address] [facility] [address] [place] [phone] Brenda Clay MD [address] [facility] [address] [place] [phone] 04/15/2026 10:00 AM EDT Office Visit LEATHA Primary [facility] at [facility] + [facility] [address] [facility] [address] [place] [address] Sena Dominguez PA [address] [facility] [place] [address] documented as of this encounter Visit Diagnoses Not on filedocumented in this encounter Care Teams Garage Door Service Technician Relationship Specialty Start Date End Date Meme Steel MD [address] [place] [address] 105 [place] [address] PCP - General Pediatrics 06/05/18 04/25/22 No Pcp, Pcp PCP - General 06/08/22 07/19/22 Guadalupe Mcbride MD PCP - General Family Medicine 07/20/22 11/01/23 Sena Dominguez PA [address] [place] [address] [place] [address] PCP - BRADY Physician Bench Worker Binding 11/02/23 Levy Barry MD [address] [place] [address] [place] [address] PCP - General Family Medicine 12/20/23 documented as of this encounter
--- OUTSIDE RECORDS SUMMARY | 2025-08-14 15:16 | XMS_ITS | Encounter Summary ---
Author Organization [facility] work ([facility]) Address [address] [place] [address] Care Team Providers Care Police Booking Officer Name Role Phone Meme Steel MD Primary Care Provider [phone] Pcp, Pcp Primary Care Provider Unavailabl Guadalupe Bardales MD Primary Care Provider [phone] Sena Dominguez Unavailable Levy Barry MD Primary Care Provider Unavailab le Source Comments The information that you have received may contain highly confidential and/or federally protected health information. This information has been disclosed to you from records protected by [facility]. The law prohibits you from making [...] contact the sender immediately.[facility] ([facility]) Encounter Details Date Type Department Care Team (Late st Contact Info) Description 10/31/2017 Historical Note [facility] Engagor System Devyn Vásquez MD [address] [place] [address] [phone] Social History Tobacco Use Types Packs/Day Years [...] CARRILLO - [facility] at [facility] [address] [facility] [address] [place] [phone] Brenda Clay MD [address] [facility] [address] [place] [address] 04/15/2026 10:00 AM EDT Office Visit LEATHA Primary [facility] at [facility] + [facility] [address] [facility] [address] [place] [address] Sena Dominguez PA [address] [facility] [place] [address] documented as of this encounter Visit Diagnoses Not on filedocumented in this encounter Care Teams Police Booking Officer Relationship Specialty Start Date End Date Meme Steel MD [address] [place] [address] 105 [place] [address] PCP - General Pediatrics 06/05/18 04/25/22 No Pcp, Pcp PCP - General 06/08/22 07/19/22 Guadalupe Mcbride MD PCP - General Family Medicine 07/20/22 11/01/23 Sena Dominguez PA [address] [place] [address] [place] [address] PCP - BRADY Physician Publication Designer 11/02/23 Levy Barry MD [address] [place] [address] [place] [address] PCP - General Family Medicine 12/20/23 documented as of this encounter
--- OUTSIDE RECORDS SUMMARY | 2025-08-14 15:16 | XMS_ITS | Encounter Summary ---
Author Organization [facility] work ([facility]) Address [address] [place] [address] Care Team Providers Care Day Care Center Director Name Role Phone Meme Steel MD Primary Care Provider [phone] Pcp, Pcp Primary Care Provider Unavailabl Guadalupe Bardales MD Primary Care Provider Sena Dominguez Unavailable [phone] Levy Barry MD Primary Care Provider Unavailab le Source Comments The information that you have received may contain highly confidential and/or federally protected health information. This information has been disclosed to you from records protected by [facility]. The law prohibits [...] please contact the sender immediately.[facility] ([facility]) Encounter Details Date Type Department Care Team (Late st Contact Info) Description 11/06/2005 Historical Note [facility] Wingu System Devyn Vásquez MD [address] [place] [address] [phone] Social History Tobacco Use Types Packs/Day Years [...] - [facility] [employer] [address] [facility] [address] [place] [phone] Brenda Clay MD [address] [facility] [address] [place] [address] 04/15/2026 10:00 AM EDT Office Visit LEATHA Primary [facility] at [facility] + [facility] [address] [facility] [address] [place] [address] Sena Dominguez PA [address] [facility] [place] [address] documented as of this encounter Visit Diagnoses Not on filedocumented in this encounter Care Teams Day Care Center Director Relationship Specialty Start Date End Date Meme Steel MD [address] [place] [address] 105 [place] [address] PCP - General Pediatrics 06/05/18 04/25/22 No Pcp, Pcp PCP - General 06/08/22 07/19/22 Guadalupe Mcbride MD PCP - General Family Medicine 07/20/22 11/01/23 Sena Dominguez PA [address] [place] [address] [place] [address] PCP - BRADY Physician Steel Pickler 11/02/23 Levy Barry MD [address] [place] [address] [place] [address] PCP - General Family Medicine 12/20/23 documented as of this encounter
--- OUTSIDE RECORDS SUMMARY | 2025-08-14 15:16 | XMS_ITS | Encounter Summary ---
Author Organization [facility] work ([facility]) Address [address] [place] [address] Care Team Providers Care Waste Disposal Plant Operator Name Role Phone Meme Steel MD Primary Care Provider [phone] No Pcp, Pcp Primary Care Provider Unavailabl Guadalupe Bardales MD Primary Care Provider [phone] Sena Dominguez Unavailable [phone] Levy Barry MD Primary Care Provider Unavailab le Source Comments The information that you have received may contain highly confidential and/or federally protected health information. This information has been disclosed to you from records protected by [facility]. The law prohibits [...] [facility] ([facility]) Encounter Details Date Type Department Care Team (Late st Contact Info) Description 02/08/2006 Historical Note [facility] Devyn Vásquez MD [address] [place] [address] [phone] Social History Tobacco Use Types Packs/Day Years [...] CARRILLO - [facility] [address] [facility] [address] [place] [phone] Brenda Clay MD [address] [facility] [address] [place] [address] 04/15/2026 10:00 AM EDT Office Visit LEATHA Primary [facility] at [facility] [address] [facility] [address] [place] [address] Sena Dominguez PA [address] [facility] [place] [address] documented as of this encounter Visit Diagnoses Not on filedocumented in this encounter Care Teams Waste Disposal Plant Operator Relationship Specialty Start Date End Date Meme Steel MD [address] [place] [address] 105 [place] [address] PCP - General Pediatrics 06/05/18 04/25/22 No Pcp, Pcp PCP - General 06/08/22 07/19/22 Guadalupe Mcbride MD PCP - General Family Medicine 07/20/22 11/01/23 Sena Dominguez PA [address] [place] [address] [place] [address] PCP - BRADY Physician Museum Attendant 11/02/23 Levy Barry MD [address] [place] [address] [place] [address] PCP - General Family Medicine 12/20/23 documented as of this encounter
--- OUTSIDE RECORDS SUMMARY | 2025-08-14 15:16 | XMS_ITS | Encounter Summary ---
Author Organization [facility] work ([facility]) Address [address] [place] [address] Care Team Providers Care Head Mva Reactor Operator Name Role Phone Meme Steel MD Primary Care Provider [phone] No Pcp, Pcp Primary Care Provider Unavailabl Guadalupe Bardales MD Primary Care Provider [phone] Sena Dominguez Unavailable Levy Barry MD Primary Care Provider Unavailab le Source Comments The information that you have received may contain highly confidential and/or federally protected health information. This information has been disclosed to you from records protected by [facility]. The law prohibits you [...] please contact the sender immediately.[facility] ([facility]) Encounter Details Date Type Department Care Team (Late st Contact Info) Description 02/16/2012 Historical Note [facility] Sociall System Devyn Vásquez MD [address] [place] [address] [phone] Social History Tobacco Use Types Packs/Day Years [...] at [facility] [address] [facility] [address] [place] [phone] Brenda Clay MD [address] [facility] [address] [place] [address] 04/15/2026 10:00 AM EDT Office Visit LEATHA [facility] at [facility] + [facility] [address] [facility] [address] [place] [address] Sena Dominguez PA [address] [facility] [place] [address] documented as of this encounter Visit Diagnoses Not on filedocumented in this encounter Care Teams Head Mva Reactor Operator Relationship Specialty Start Date End Date Meme Steel MD [address] [place] [address] 105 [place] [address] PCP - General Pediatrics 06/05/18 04/25/22 No Pcp, Pcp PCP - General 06/08/22 07/19/22 Guadalupe Mcbride MD PCP - General Family Medicine 07/20/22 11/01/23 Sena Dominguez PA [address] [place] [address] [place] [address] PCP - BRADY Physician Pumping Station Engineer 11/02/23 Levy Barry MD [address] [place] [address] [place] [address] PCP - General Family Medicine 12/20/23 documented as of this encounter
--- OUTSIDE RECORDS SUMMARY | 2025-08-14 15:16 | XMS_ITS | Encounter Summary ---
Author Organization [facility] work ([facility]) Address [address] [place] [address] Care Team Providers Care Mold Closer Name Role Phone Meme Steel MD Primary Care Provider [phone] No Pcp, Pcp Primary Care Provider Unavailabl Guadalupe Bardales MD Primary Care Provider [phone] Sena Dominguez Unavailable [phone] Levy Barry MD Primary Care Provider Unavailab le Source Comments The information that you have received may contain highly confidential and/or federally protected health information. This information has been disclosed to you from records protected by [facility]. The law prohibits you [...] please contact the sender immediately.[facility] ([facility]) Encounter Details Date Type Department Care Team (Late st Contact Info) Description 11/04/2005 Historical Note SVMG MessageBunker System Devyn Vásquez MD [address] [place] [address] [phone] Social History Tobacco Use Types Packs/Day Years [...] CARRILLO - [facility] [address] [facility] [address] [place] [phone] Brenda Clay MD [address] [facility] [address] [place] [address] 04/15/2026 10:00 AM EDT Office Visit [facility]HA [facility] at [facility] [address] [place] [address] Sena Dominguez PA [address] [facility] [facility] [address] [place] [address] documented as of this encounter Visit Diagnoses Not on filedocumented in this encounter Care Teams Mold Closer Relationship Specialty Start Date End Date Meme Steel MD [address] [place] [address] [place] [address] PCP - General Pediatrics 06/05/18 04/25/22 No Pcp, Pcp PCP - General 06/08/22 07/19/22 Guadalupe Mcbride MD PCP - General Family Medicine 07/20/22 11/01/23 Sena Dominguez PA [address] [place] [address] [place] [address] PCP - BRADY Physician Purchasing Buyer 11/02/23 Levy Barry MD [address] [place] [address] [place] [address] PCP - General Family Medicine 12/20/23 documented as of this encounter
--- OUTSIDE RECORDS SUMMARY | 2025-08-14 15:16 | XMS_ITS | Encounter Summary ---
Author Organization [facility] work ([facility]) Address [address] [place] [address] Care Team Providers Care Medical Staff Specialist Name Role Phone Meme Steel MD Primary Care Provider [phone] Pcp, Pcp Primary Care Provider Unavailabl Guadalupe Bardales MD Primary Care Provider [phone] Sena Dominguez Unavailable [phone] Levy Barry MD Primary Care Provider Unavailab le Source Comments The information that you have received may contain highly confidential and/or federally protected health information. This information has been disclosed to you from records protected by [facility]. The law prohibits you [...] contact the sender immediately.[facility] ([facility]) Encounter Details Date Type Department Care Team (Late st Contact Info) Description 02/08/2006 Historical Note SVMG Hyperoptic System Devyn Vásquez MD [address] [place] [phone] Social History Tobacco Use Types Packs/Day Years [...] Visit LEATHA CARRILLO - [facility] [address] [facility] [address] [place] [phone] Brenda Clay MD [address] [facility] [address] [place] [address] 04/15/2026 10:00 AM EDT Office Visit [facility]HA [facility] at [facility] + [facility] [address] [facility] [place] [address] Sena Dominguez PA [address] [facility] [place] [address] documented as of this encounter Visit Diagnoses Not on filedocumented in this encounter Care Teams Medical Staff Specialist Relationship Specialty Start Date End Date Meme Steel MD [address] [place] [address] 105 [place] [address] PCP - General Pediatrics 06/05/18 04/25/22 No Pcp, Pcp PCP - General 06/08/22 07/19/22 Guadalupe Mcbride MD PCP - General Family Medicine 07/20/22 11/01/23 Sena Dominguez PA [address] [place] [address] [place] [address] PCP - BRADY Physician Social Media Specialist 11/02/23 Levy Barry MD [address] [place] [address] [place] [address] PCP - General Family Medicine 12/20/23 documented as of this encounter
--- OUTSIDE RECORDS SUMMARY | 2025-08-14 15:16 | XMS_ITS | Encounter Summary ---
Author Organization [facility] work ([facility]) Address [address] [place] [address] Care Team Providers Care Bleach Chlorinator Name Role Phone Meme Steel MD Primary Care Provider [phone] Pcp, Pcp Primary Care Provider Unavailabl Guadalupe Bardales MD Primary Care Provider [phone] Sena Dominguez Unavailable Levy Barry MD Primary Care Provider Unavailab le Source Comments The information that you have received may contain highly confidential and/or federally protected health information. This information has been disclosed to you from records protected by [facility]. The law prohibits you [...] contact the sender immediately.[facility] ([facility]) Encounter Details Date Type Department Care Team (Late st Contact Info) Description 11/07/2005 Historical Note SVMG Joint Loyalty System Devyn Vásquez MD [address] [place] [address] [phone] Social History Tobacco Use Types Packs/Day Years [...] Visit LEATHA CARRILLO - [facility] [address] [facility] [address] [place] [phone] Brenda Clay MD [address] [facility] [address] [place] [address] 04/15/2026 10:00 AM EDT Office Visit LE[facility]HA [facility] at [facility] + [facility] [address] [facility] [address] [place] [address] Sena Dominguez PA [address] [facility] [place] [address] documented as of this encounter Visit Diagnoses Not on filedocumented in this encounter Care Teams Bleach Chlorinator Relationship Specialty Start Date End Date Meme Steel MD [address] [place] [address] 105 [place] [address] PCP - General Pediatrics 06/05/18 04/25/22 No Pcp, Pcp PCP - General 06/08/22 07/19/22 Guadalupe Mcbride MD PCP - General Family Medicine 07/20/22 11/01/23 Sena Dominguez PA [address] [place] [address] [place] [address] PCP - BRADY Physician Radio Producer 11/02/23 Levy Barry MD [address] [place] [address] [place] [address] PCP - General Family Medicine 12/20/23 documented as of this encounter
--- OUTSIDE RECORDS SUMMARY | 2025-08-14 15:16 | XMS_ITS | Encounter Summary ---
Author Organization [facility] work ([facility]) Address [address] [place] [address] Care Team Providers Care Matrix Supervisor Name Role Phone Meme Steel MD Primary Care Provider [phone] Pcp, Pcp Primary Care Provider Unavailabl Guadalupe Bardales MD Primary Care Provider [phone] Sena Dominguez Unavailable [phone] Levy Barry MD Primary Care Provider Unavailab le Source Comments The information that you have received may contain highly confidential and/or federally protected health information. This information has been disclosed to you from records protected by [facility]. The law prohibits you [...] sender immediately.[facility] ([facility]) Encounter Details Date Type Department Care Team (Late st Contact Info) Description 11/28/2005 Historical Note SVMG appEatIT System Devyn Vásquez MD [address] [place] [address] [phone] Social History Tobacco Use Types Packs/Day Years [...] Visit LEATHA CARRILLO - [facility] [address] [facility] [address] [place] [phone] Brenda Clay MD [address] [facility] [address] [place] [address] 04/15/2026 10:00 AM EDT Office Visit LEATHA [facility] at [facility] + [facility] [address] [facility] [facility] [address] [place] [address] Sena Dominguez PA [address] [facility] [place] [address] documented as of this encounter Visit Diagnoses Not on filedocumented in this encounter Care Teams Matrix Supervisor Relationship Specialty Start Date End Date Meme Steel MD [address] [place] [address] 105 [place] [address] PCP - General Pediatrics 06/05/18 04/25/22 No Pcp, Pcp PCP - General 06/08/22 07/19/22 Guadalupe Mcbride MD PCP - General Family Medicine 07/20/22 11/01/23 Sena Dominguez PA [address] [place] [address] [place] [address] PCP - BRADY Physician Punchboard Filling Machine Operator 11/02/23 Levy Barry MD [address] [place] [address] [place] [address] PCP - General Family Medicine 12/20/23 documented as of this encounter
--- OUTSIDE RECORDS SUMMARY | 2025-08-14 15:16 | XMS_ITS | Encounter Summary ---
Author Organization [facility] work ([facility]) Address [address] [place] [address] [place] [address] Care Team Providers Care Fiber Optic Splicer Name Role Phone Meme Steel MD Primary Care Provider [phone] Pcp, Pcp Primary Care Provider Unavailabl Guadalupe Bardales MD Primary Care Provider [phone] Sena Dominguez Unavailable [phone] Levy Barry MD Primary Care Provider Unavailab le Source Comments The information that you have received may contain highly confidential and/or federally protected health information. This information has been disclosed to you from records protected by [facility]. The law prohibits you from [...] contact the sender immediately.[facility] ([facility]) Encounter Details Date Type Department Care Team (Late st Contact Info) Description 01/16/2017 Historical Note SVMG Outdoor Creations System Devyn Vásquez MD [address] [place] [address] [phone] Social History Tobacco Use Types Packs/Day Years [...] LEATHA CARRILLO - [facility] [address] [facility] [address] [place] [phone] Brenda Clay MD [address] [facility] [address] [place] [address] 04/15/2026 10:00 AM EDT Office Visit LEATHA Primary [facility] at [facility] + [facility] [address] [facility] [facility] [address] [place] [address] Sena Dominguez PA [address] [facility] [place] [address] documented as of this encounter Visit Diagnoses Not on filedocumented in this encounter Care Teams Fiber Optic Splicer Relationship Specialty Start Date End Date Meme Steel MD [address] [place] [address] 105 [place] [address] PCP - General Pediatrics 06/05/18 04/25/22 No Pcp, Pcp PCP - General 06/08/22 07/19/22 Guadalupe Mcbride MD PCP - General Family Medicine 07/20/22 11/01/23 Sena Dominguez PA [address] [place] [address] [place] [address] PCP - BRADY Physician Fiber Optic Technician 11/02/23 Levy Barry MD [address] [place] [address] [place] [address] PCP - General Family Medicine 12/20/23 documented as of this encounter
--- OUTSIDE RECORDS SUMMARY | 2025-08-14 15:16 | XMS_ITS | Encounter Summary ---
Author Organization [facility] work ([facility]) Address [address] [place] [address] Care Team Providers Care Tea Room Manager Name Role Phone Meme Steel MD Primary Care Provider [phone] Pcp, Pcp Primary Care Provider Unavailabl Guadalupe Bardales MD Primary Care Provider Sena Dominguez Unavailable [phone] Levy Barry MD Primary Care Provider Unavailab le Source Comments The information that you have received may contain highly confidential and/or federally protected health information. This information has been disclosed to you from records protected by [facility]. The law prohibits [...] the sender immediately.[facility] [place] [facility] ([facility]) Encounter Details Date Type Department Care Team (Late st Contact Info) Description 09/10/2012 Historical Note SVMG Chauffeur Prive System Devyn Vásquez MD [address] [place] [address] [phone] Social History Tobacco Use Types Packs/Day Years [...] CARRILLO - [facility] [address] [facility] [address] [place] [phone] Brenda Clay MD [address] [facility] [address] [place] [address] 04/15/2026 10:00 AM EDT Office Visit [facility]HA [facility] at [facility] + [facility] [address] [facility] [address] [place] [address] Sena Dominguez PA [address] [facility] [place] [address] documented as of this encounter Visit Diagnoses Not on filedocumented in this encounter Care Teams Tea Room Manager Relationship Specialty Start Date End Date Meme Steel MD [address] [place] [address] 105 [place] [address] PCP - General Pediatrics 06/05/18 04/25/22 No Pcp, Pcp PCP - General 06/08/22 07/19/22 Guadalupe Mcbride MD PCP - General Family Medicine 07/20/22 11/01/23 Sena Dominguez PA [address] [place] [address] [place] [address] PCP - BRADY Physician Hand Slitter 11/02/23 Levy Barry MD [address] [place] [address] [place] [address] PCP - General Family Medicine 12/20/23 documented as of this encounter
--- OUTSIDE RECORDS SUMMARY | 2025-08-14 15:16 | XMS_ITS | Encounter Summary ---
Author Organization [facility] work ([facility]) Address [address] [place] [address] Care Team Providers Care Websphere Commerce Architect Name Role Phone Meme Steel MD Primary Care Provider [phone] Pcp, Pcp Primary Care Provider Unavailabl Guadalupe Bardales MD Primary Care Provider [phone] Sena Dominguez Unavailable [phone] Levy Barry MD Primary Care Provider Unavailab le Source Comments The information that you have received may contain highly confidential and/or federally protected health information. This information has been disclosed to you from records protected by [facility]. The law prohibits [...] error, please contact the sender immediately.[facility] ([facility]) Encounter Details Date Type Department Care Team (Late st Contact Info) Description 05/24/2012 Historical Note SVMG OvaScience System Devyn Vásquez MD [address] [place] [address] [phone] Social History Tobacco Use Types Packs/Day Years [...] - [facility] [address] [facility] [address] [place] [phone] Brenda Clay MD [address] [facility] [address] [place] [address] 04/15/2026 10:00 AM EDT Office Visit LEATHA Primary [facility] at [facility] + [facility] [address] [facility] [address] [place] [address] Sena Dominguez PA [address] [facility] [place] [address] documented as of this encounter Visit Diagnoses Not on filedocumented in this encounter Care Teams Websphere Commerce Architect Relationship Specialty Start Date End Date Meme Steel MD [address] [place] [address] 105 [place] [address] PCP - General Pediatrics 06/05/18 04/25/22 No Pcp, Pcp PCP - General 06/08/22 07/19/22 Guadalupe Mcbride MD PCP - General Family Medicine 07/20/22 11/01/23 Sena Dominguez PA [address] [place] [address] [place] [address] PCP - BRADY Physician Container Washer 11/02/23 Levy Barry MD [address] [place] [address] [place] [address] PCP - General Family Medicine 12/20/23 documented as of this encounter
--- OUTSIDE RECORDS SUMMARY | 2025-08-14 15:16 | XMS_ITS | Encounter Summary ---
Author Organization [facility] work ([facility]) Address [address] [place] [address] Care Team Providers Care Trim Stencil Maker Name Role Phone Meme Steel MD Primary Care Provider [phone] Pcp, Pcp Primary Care Provider Unavailabl Guadalupe Bardales MD Primary Care Provider [phone] Sena Dominguez Unavailable [phone] Levy Barry MD Primary Care Provider Unavailab le Source Comments The information that you have received may contain highly confidential and/or federally protected health information. This information has been disclosed to you from records protected by [facility]. The law prohibits you from [...] contact the sender immediately.[facility] ([facility]) Encounter Details Date Type Department Care Team (Late st Contact Info) Description 10/31/2017 Historical Note SVMG ZAP System Devyn Vásquez MD [address] [place] [address] [phone] Social History Tobacco Use Types Packs/Day Years [...] Visit LEATHA CARRILLO - [facility] [address] [facility] [address] [place] [phone] Brenda Clay MD [address] [facility] [address] [place] [address] 04/15/2026 10:00 AM EDT Office Visit LEATHA Primary Care at [facility] + [facility] [address] [facility] [address] [place] [address] Sena Dominguez PA [address] [facility] [place] [address] documented as of this encounter Visit Diagnoses Not on filedocumented in this encounter Care Teams Trim Stencil Maker Relationship Specialty Start Date End Date Meme Steel MD [address] [place] [address] 105 [place] [address] PCP - General Pediatrics 06/05/18 04/25/22 No Pcp, Pcp PCP - General 06/08/22 07/19/22 Guadalupe Mcbride MD PCP - General Family Medicine 07/20/22 11/01/23 Sena Dominguez PA [address] [place] [address] [place] [address] PCP - BRADY Physician Yacht Master 11/02/23 Levy Barry MD [address] [place] [address] [place] [address] PCP - General Family Medicine 12/20/23 documented as of this encounter
--- OUTSIDE RECORDS SUMMARY | 2025-08-14 15:16 | XMS_ITS | Encounter Summary ---
Author Organization [facility] work ([facility]) Address [address] [place] [address] Care Team Providers Care Lemon Grower Name Role Phone Meme Steel MD Primary Care Provider [phone] No Pcp, Pcp Primary Care Provider Unavailabl Guadalupe Bardales MD Primary Care Provider [phone] Sena Dominguez Unavailable [phone] Levy Barry MD Primary Care Provider Unavailab le Source Comments The information that you have received may contain highly confidential and/or federally protected health information. This information has been disclosed to you from records protected by [employer]. The law prohibits [...] please contact the sender immediately.[facility] ([facility]) Encounter Details Date Type Department Care Team (Late st Contact Info) Description 04/15/2011 Historical Note SVMG SecureMedia System Devyn Vásquez MD [address] [place] [address] [phone] Social History Tobacco Use Types Packs/Day Years [...] LEATHA CARRILLO - [facility] [address] [facility] [address] [place] [phone] Brenda Clay MD [address] [facility] [address] [place] [address] 04/15/2026 10:00 AM EDT Office Visit LEATHA [facility] at [facility] [address] [facility] [address] [place] [address] Sean Dominguez PA [address] [facility] [place] [address] documented as of this encounter Visit Diagnoses Not on filedocumented in this encounter Care Teams Lemon Grower Relationship Specialty Start Date End Date Meme Steel MD [address] [place] [address] 105 [place] [address] PCP - General Pediatrics 06/05/18 04/25/22 No Pcp, Pcp PCP - General 06/08/22 07/19/22 Guadalupe Mcbride MD PCP - General Family Medicine 07/20/22 11/01/23 Sena Dominguez PA [address] [place] [address] [place] [address] PCP - BRADY Physician Silk Finisher 11/02/23 Levy Barry MD [address] [place] [address] [place] [address] PCP - General Family Medicine 12/20/23 documented as of this encounter
--- OUTSIDE RECORDS SUMMARY | 2025-08-14 15:16 | XMS_ITS | Encounter Summary ---
Author Organization [facility] work ([facility]) Address [address] [facility] [address] [place] [address] Care Team Providers Care Videotape Operator Name Role Phone Meme Steel MD Primary Care Provider [phone] No Pcp, Pcp Primary Care Provider Unavailabl Guadalupe Bardales MD Primary Care Provider Sena Dominguez Unavailable [phone] Levy Barry MD Primary Care Provider Unavailab le Source Comments The information that you have received may contain highly confidential and/or federally protected health information. This information has been disclosed to you from records protected by [facility]. The law [...] please contact the sender immediately.[facility] ([facility]) Encounter Details Date Type Department Care Team (Late st Contact Info) Description 01/16/2017 Historical Note SVMG Lifestreams System Devyn Vásquez MD [address] [place] [address] [phone] Social History Tobacco Use Types Packs/Day Years [...] - [facility] [address] [facility] [address] [place] [phone] Brenda Clay MD [address] [facility] [address] [place] [address] 04/15/2026 10:00 AM EDT Office Visit LEATHA Primary [facility] at [facility] + [facility] [address] [facility] [address] [place] [address] Sena Dominguez PA [address] [facility] [place] [address] documented as of this encounter Visit Diagnoses Not on filedocumented in this encounter Care Teams Videotape Operator Relationship Specialty Start Date End Date Meme Steel MD [address] [place] [address] 105 [place] [address] PCP - General Pediatrics 06/05/18 04/25/22 No Pcp, Pcp PCP - General 06/08/22 07/19/22 Guadalupe Mcbride MD PCP - General Family Medicine 07/20/22 11/01/23 Sena Dominguez PA [address] [place] [address] [place] [address] PCP - BRADY Physician Sider Mechanic 11/02/23 Levy Barry MD [address] [place] [address] [place] [address] PCP - General Family Medicine 12/20/23 documented as of this encounter
--- OUTSIDE RECORDS SUMMARY | 2025-08-14 15:16 | XMS_ITS | Encounter Summary ---
Author Organization [facility] work ([facility]) Address [address] [place] [address] Care Team Providers Care Harness Worker Name Role Phone Meme Steel MD Primary Care Provider [phone] Pcp, Pcp Primary Care Provider Unavailabl Guadalupe Bardales MD Primary Care Provider [phone] Sena Dominguez Unavailable [phone] Levy Barry MD Primary Care Provider Unavailab le Source Comments The information that you have received may contain highly confidential and/or federally protected health information. This information has been disclosed to you from records protected by [facility] [facility]. The law prohibits you [...] please contact the sender immediately.[facility] ([facility]) Encounter Details Date Type Department Care Team (Late st Contact Info) Description 03/09/2017 Historical Note [facility] [employer] System Devyn Vásquez MD [address] [place] [address] [phone] Social History Tobacco Use Types Packs/Day Years [...] Visit LEATHA CARRILLO - [facility] [address] [facility] [address] [place] [phone] Brenda Clay MD [address] [facility] [address] [place] [address] 04/15/2026 10:00 AM EDT Office Visit [facility]HA [facility] at [facility] + [facility] [address] [facility] [address] [place] [address] Sena Dominguez PA [address] [facility] [place] [address] documented as of this encounter Visit Diagnoses Not on filedocumented in this encounter Care Teams Harness Worker Relationship Specialty Start Date End Date Meme Steel MD [address] [place] [address] [place] [address] PCP - General Pediatrics 06/05/18 04/25/22 No Pcp, Pcp PCP - General 06/08/22 07/19/22 Guadalupe Mcbride MD PCP - General Family Medicine 07/20/22 11/01/23 Sena Dominguez PA [address] [place] [address] [place] [address] PCP - BRADY Physician Tightener 11/02/23 Levy Barry MD [address] [place] [address] [place] [address] PCP - General Family Medicine 12/20/23 documented as of this encounter
--- OUTSIDE RECORDS SUMMARY | 2025-08-14 15:17 | XMS_ITS | Encounter Summary ---
Author Organization [facility] work ([facility]) Address [address] [place] [address] Care Team Providers Care Bisque Ware Dipper Name Role Phone Meme Steel MD Primary Care Provider [phone] Pcp, Pcp Primary Care Provider Unavailabl Guadalupe Bardales MD Primary Care Provider [phone] Sena Dominguez Unavailable [phone] Levy Barry MD Primary Care Provider Unavailab le Source Comments The information that you have received may contain highly confidential and/or federally protected health information. This information has been disclosed to you from records protected by [facility]. The law prohibits you [...] please contact the sender immediately.[facility] ([facility]) Encounter Details Date Type Department Care Team (Late st Contact Info) Description 11/21/2005 Historical Note SVMG be2 System Devny Vásquez MD [address] [place] [address] [phone] Social History Tobacco Use Types Packs/Day Years [...] CARRILLO - [facility] [address] [facility] [address] [place] [phone] Brenda Clay MD [address] [facility] [address] [place] [address] 04/15/2026 10:00 AM EDT Office Visit [facility]HA [facility] at [facility] + [facility] [address] [facility] [address] [place] [address] Sena Dominguez PA [address] [facility] [place] [address] documented as of this encounter Visit Diagnoses Not on filedocumented in this encounter Care Teams Bisque Ware Dipper Relationship Specialty Start Date End Date Meme Steel MD [address] [place] [address] 105 [place] [address] PCP - General Pediatrics 06/05/18 04/25/22 No Pcp, Pcp PCP - General 06/08/22 07/19/22 Guadalupe Mcbride MD PCP - General Family Medicine 07/20/22 11/01/23 Sena Dominguez PA [address] [place] [address] [place] [address] PCP - BRADY Physician Guest Service Host 11/02/23 Levy Barry MD [address] [place] [address] [place] [address] PCP - General Family Medicine 12/20/23 documented as of this encounter
--- OUTSIDE RECORDS SUMMARY | 2025-08-14 15:17 | XMS_ITS | Encounter Summary ---
Author Organization [facility] work ([facility]) Address [address] [place] [address] Care Team Providers Care Engine Specialist Name Role Phone Meme Steel MD Primary Care Provider [phone] Pcp, Pcp Primary Care Provider Unavailabl Guadalupe Bardales MD Primary Care Provider [phone] Sena Dominguez Unavailable [phone] Levy Barry MD Primary Care Provider Unavailab le Source Comments The information that you have received may contain highly confidential and/or federally protected health information. This information has been disclosed to you from records protected by [facility]. The law prohibits you from [...] error, please contact the sender immediately.[facility] ([facility]) Encounter Details Date Type Department Care Team (Late st Contact Info) Description 09/08/2011 Historical Note [facility] [employer] System Devyn Vásquez MD [address] [place] [address] [phone] Social History Tobacco Use Types Packs/Day Years [...] Visit LEATHA CARRILLO - [facility] [address] [facility] [address] [place] [phone] Brenda Clay MD [address] [facility] [address] [place] [address] 04/15/2026 10:00 AM EDT Office Visit [facility]HA [facility] at [facility] + [facility] [address] [facility] [address] [place] [address] Sena Dominguez PA [address] [facility] [place] [address] documented as of this encounter Visit Diagnoses Not on filedocumented in this encounter Care Teams Engine Specialist Relationship Specialty Start Date End Date Meme Steel MD [address] [place] [address] 105 [place] [address] PCP - General Pediatrics 06/05/18 04/25/22 No Pcp, Pcp PCP - General 06/08/22 07/19/22 Guadalupe Mcbride MD PCP - General Family Medicine 07/20/22 11/01/23 Sena Dominguez PA [address] [place] [address] [place] [address] PCP - BRADY Physician Web Systems Developer 11/02/23 Levy Barry MD [address] [place] [address] [place] [address] PCP - General Family Medicine 12/20/23 documented as of this encounter
--- OUTSIDE RECORDS SUMMARY | 2025-08-14 15:17 | XMS_ITS | Encounter Summary ---
Author Organization [facility] work ([facility]) Address [address] [place] [address] Care Team Providers Care Fuel System Maintenance Supervisor Name Role Phone Meme Steel MD Primary Care Provider [phone] Pcp, Pcp Primary Care Provider Unavailabl Guadalupe Bardales MD Primary Care Provider [phone] Sena Dominguez Unavailable [phone] Levy Barry MD Primary Care Provider Unavailab le Source Comments The information that you have received may contain highly confidential and/or federally protected health information. This information has been disclosed to you from records protected by [facility]. The law prohibits you [...] contact the sender immediately.[facility] ([facility]) Encounter Details Date Type Department Care Team (Late st Contact Info) Description 03/29/2016 Historical Note [facility]G [employer] System Devyn Vásquez MD [address] [place] [address] [phone] Social History Tobacco Use Types Packs/Day Years [...] Visit LEATHA CARRILLO - [facility] [address] [facility] [address] [place] [phone] Brenda Clay MD [address] [facility] [address] [place] [address] 04/15/2026 10:00 AM EDT Office Visit LEATHA [facility] at [facility] + [facility] [address] [facility] [address] [place] [address] Sena Dominguez PA [address] [facility] [place] [address] documented as of this encounter Visit Diagnoses Not on filedocumented in this encounter Care Teams Fuel System Maintenance Supervisor Relationship Specialty Start Date End Date Meme Steel MD [address] [place] [address] 105 [place] [address] PCP - General Pediatrics 06/05/18 04/25/22 No Pcp, Pcp PCP - General 06/08/22 07/19/22 Guadalupe Mcbride MD PCP - General Family Medicine 07/20/22 11/01/23 Sena Dominguez PA [address] [place] [address] [place] [address] PCP - BRADY Physician Sewing Demonstrator 11/02/23 Levy Barry MD [address] [place] [address] [place] [address] PCP - General Family Medicine 12/20/23 documented as of this encounter
--- OUTSIDE RECORDS SUMMARY | 2025-08-14 15:17 | XMS_ITS | Encounter Summary ---
Author Organization [facility] work ([facility]) Address [address] [place] [address] Care Team Providers Care Billboard Installer Name Role Phone Meme Steel MD Primary Care Provider [phone] Pcp, Pcp Primary Care Provider Unavailabl Guadalupe Bardales MD Primary Care Provider [phone] Sena Dominguez Unavailable [phone] Levy Barry MD Primary Care Provider Unavailab le Source Comments The information that you have received may contain highly confidential and/or federally protected health information. This information has been disclosed to you from records protected by [facility]. The law prohibits you [...] the sender immediately.[facility] ([facility]) Encounter Details Date Type Department Care Team (Late st Contact Info) Description 06/20/2005 Historical Note [facility]G Upstream System Devyn Vásquez MD [address] [place] [address] [phone] Social History Tobacco Use Types Packs/Day Years [...] LEATHA CARRILLO - [facility] [address] [facility] [address] [place] [phone] Brenda Clay MD [address] [facility] [address] [place] [address] 04/15/2026 10:00 AM EDT Office Visit [facility]HA [facility] at [facility] + [facility] [address] [facility] [address] [place] [address] Sena Dominguez PA [address] [facility] [place] [address] documented as of this encounter Visit Diagnoses Not on filedocumented in this encounter Care Teams Billboard Installer Relationship Specialty Start Date End Date Meme Steel MD [address] [place] [address] 105 [place] [address] PCP - General Pediatrics 06/05/18 04/25/22 No Pcp, Pcp PCP - General 06/08/22 07/19/22 Guadalupe Mcbride MD PCP - General Family Medicine 07/20/22 11/01/23 Sena Dominguez PA [address] [place] [address] [place] [address] PCP - BRADY Physician Reinforcing Steel Machine Operator 11/02/23 Levy Barry MD [address] [place] [address] [place] [address] PCP - General Family Medicine 12/20/23 documented as of this encounter
--- OUTSIDE RECORDS SUMMARY | 2025-08-14 15:17 | XMS_ITS | Encounter Summary ---
Author Organization [facility] work ([facility]) Address [address] [place] [address] Care Team Providers Care Sephora Operations Consultant Name Role Phone Meme Steel MD Primary Care Provider No Pcp, Pcp Primary Care Provider Unavailabl Guadalupe Bardales MD Primary Care Provider [phone] Sena Dominguez Unavailable [phone] Levy Barry MD Primary Care Provider Unavailab le Source Comments The information that you have received may contain highly confidential and/or federally protected health information. This information has been disclosed to you from records protected by [facility]. The law prohibits you from making [...] contact the sender immediately.[facility] ([facility]) Encounter Details Date Type Department Care Team (Late st Contact Info) Description 11/09/2005 Historical Note SVMG Alt12 Apps System Devyn Vásquez MD [address] [place] [address] [phone] Social History Tobacco Use Types Packs/Day Years [...] LEATHA CARRILLO - [facility] [address] [facility] [address] [place] [phone] Brenda Clay MD [address] [facility] [address] [place] [address] 04/15/2026 10:00 AM EDT Office Visit [facility]HA [facility] at [facility] + [facility] [address] [facility] [address] [place] [address] Sena Dominguez PA [address] [facility] [place] [address] documented as of this encounter Visit Diagnoses Not on filedocumented in this encounter Care Teams Sephora Operations Consultant Relationship Specialty Start Date End Date Meme Steel MD [address] [place] [address] 105 [place] [address] PCP - General Pediatrics 06/05/18 04/25/22 No Pcp, Pcp PCP - General 06/08/22 07/19/22 Guadalupe Mcbride MD PCP - General Family Medicine 07/20/22 11/01/23 Sena Dominguez PA [address] [place] [address] [place] [address] PCP - BRADY Physician Filler Shredder 11/02/23 Levy Barry MD [address] [place] [address] [place] [address] PCP - General Family Medicine 12/20/23 documented as of this encounter
--- OUTSIDE RECORDS SUMMARY | 2025-08-14 15:17 | XMS_ITS | Encounter Summary ---
Author Organization [facility] work ([facility]) Address [address] [place] [address] Care Team Providers Care Vending Machine Technician Name Role Phone Meme Steel MD Primary Care Provider [phone] Pcp, Pcp Primary Care Provider Unavailabl Guadalupe Bardales MD Primary Care Provider [phone] Sena Dominguez Unavailable [phone] Levy Barry MD Primary Care Provider Unavailab le Source Comments The information that you have received may contain highly confidential and/or federally protected health information. This information has been disclosed to you from records protected by [facility]. The [...] contact the sender immediately.[facility] ([facility]) Encounter Details Date Type Department Care Team (Late st Contact Info) Description 08/13/2009 Historical Note SVMG G-mode System Devyn Vásquez MD [address] [place] [address] [phone] Social History Tobacco Use Types Packs/Day Years [...] Office Visit LEATHA CARRILLO - [facility] [address] [facility] [address] [place] [phone] Brenda Clay MD [address] [facility] [address] [place] [address] 04/15/2026 10:00 AM EDT Office Visit [facility]HA [facility] at [facility] [address] [facility] [address] [place] [address] Sena Dominguez PA [address] [facility] [place] [address] documented as of this encounter Visit Diagnoses Not on filedocumented in this encounter Care Teams Vending Machine Technician Relationship Specialty Start Date End Date Meme Steel MD [address] [place] [address] 105 [place] [address] PCP - General Pediatrics 06/05/18 04/25/22 No Pcp, Pcp PCP - General 06/08/22 07/19/22 Guadalupe Mcbride MD PCP - General Family Medicine 07/20/22 11/01/23 Sena Dominguez PA [address] [place] [address] [place] [address] PCP - BRADY Physician Hospice Patient Care Secretary 11/02/23 Levy Barry MD [address] [place] [address] [place] [address] PCP - General Family Medicine 12/20/23 documented as of this encounter
--- OUTSIDE RECORDS SUMMARY | 2025-08-14 15:17 | XMS_ITS | Encounter Summary ---
Author Organization [facility] work ([facility]) Address [address] [place] [address] Care Team Providers Care Pediatric Acute Care Unit Nurse Name Role Phone Meme Steel MD Primary Care Provider [phone] Pcp, Pcp Primary Care Provider Unavailabl Guadalupe Bardales MD Primary Care Provider [phone] Sena Dominguez Unavailable [phone] Levy Barry MD Primary Care Provider Unavailab le Source Comments The information that you have received may contain highly confidential and/or federally protected health information. This information has been disclosed to you from records protected by [facility]. The law prohibits you [...] sender immediately.[facility] ([facility]) Encounter Details Date Type Department Care Team (Late st Contact Info) Description 03/21/2016 Historical Note SVMG yourdelivery System Devyn Vásquez MD [address] [place] [address] [phone] Social History Tobacco Use Types Packs/Day Years [...] LEATHA CARRILLO - [facility] [address] [facility] [address] [place] [phone] Brenda Clay MD [address] [facility] [address] [place] [address] 04/15/2026 10:00 AM EDT Office Visit LEATHA [facility] at [facility] + [facility] [address] [facility] [address] [place] [address] Sena Dominguez PA [address] [facility] [place] [address] documented as of this encounter Visit Diagnoses Not on filedocumented in this encounter Care Teams Pediatric Acute Care Unit Nurse Relationship Specialty Start Date End Date Meme Steel MD [address] [place] [address] 105 [place] [address] PCP - General Pediatrics 06/05/18 04/25/22 No Pcp, Pcp PCP - General 06/08/22 07/19/22 Guadalupe Mcbride MD PCP - General Family Medicine 07/20/22 11/01/23 Sena Dominguez PA [address] [place] [address] [place] [address] PCP - BRADY Physician Architectural Project Captain 11/02/23 Levy Barry MD [address] [place] [address] [place] [address] PCP - General Family Medicine 12/20/23 documented as of this encounter
--- OUTSIDE RECORDS SUMMARY | 2025-08-14 15:17 | XMS_ITS | Encounter Summary ---
Author Organization [facility] work ([facility]) Address [address] [place] [address] Care Team Providers Care Unix Developer Name Role Phone Meme Steel MD Primary Care Provider [phone] No Pcp, Pcp Primary Care Provider Unavailabl Guadalupe Bardales MD Primary Care Provider [phone] Sena Dominguez Unavailable [phone] Levy Barry MD Primary Care Provider Unavailab le Source Comments The information that you have received may contain highly confidential and/or federally protected health information. This information has been disclosed to you from records protected by [facility]. The law prohibits you from [...] contact the sender immediately.[facility] ([facility]) Encounter Details Date Type Department Care Team (Late st Contact Info) Description 11/10/2005 Historical Note SVMG Credible System Devyn Vásquez MD [address] [place] [address] [phone] Social History Tobacco Use Types Packs/Day Years [...] LEATHA CARRILLO - [facility] [address] [facility] [address] [place] [phone] Brenda Clay MD [address] [facility] [address] [place] [address] 04/15/2026 10:00 AM EDT Office Visit LEATHA [facility] at [facility] + [facility] [address] [facility] [address] [place] [address] Sena Dominguez PA [address] [facility] [place] [address] documented as of this encounter Visit Diagnoses Not on filedocumented in this encounter Care Teams Unix Developer Relationship Specialty Start Date End Date Meme Steel MD [address] [place] [address] 105 [place] [address] PCP - General Pediatrics 06/05/18 04/25/22 No Pcp, Pcp PCP - General 06/08/22 07/19/22 Guadalupe Mcbride MD PCP - General Family Medicine 07/20/22 11/01/23 Sena Dominguez PA [address] [place] [address] [place] [address] PCP - BRADY Physician Funding Specialist 11/02/23 Levy Barry MD [address] [place] [address] [place] [address] PCP - General Family Medicine 12/20/23 documented as of this encounter
--- OUTSIDE RECORDS SUMMARY | 2025-08-14 15:17 | XMS_ITS | Encounter Summary ---
Author Organization [facility] work ([facility]) Address [address] [place] [address] Care Team Providers Care Production Manager Name Role Phone Meme Steel MD Primary Care Provider [phone] No Pcp, Pcp Primary Care Provider Unavailabl Guadalupe Bardales MD Primary Care Provider [phone] Sena Dominguez Unavailable [phone] Levy Barry MD Primary Care Provider Unavailab le Source Comments The information that you have received may contain highly confidential and/or federally protected health information. This information has been disclosed to you from records protected by [facility]. The law prohibits you [...] sender immediately.[facility] ([facility]) Encounter Details Date Type Department Care Team (Late st Contact Info) Description 07/13/2016 Historical Note SVMG [employer] System Devyn Vásquez MD [address] [place] [address] [phone] Social History Tobacco Use Types Packs/Day Years [...] LEATHA CARRILLO - [facility] [address] [facility] [address] [place] [phone] Brenda Clay MD [address] [facility] [address] [place] [address] 04/15/2026 10:00 AM EDT Office Visit [facility]HA [facility] at [facility] + [facility] [address] [facility] [address] [place] [address] Sena Dominguez PA [address] [facility] [place] [address] documented as of this encounter Visit Diagnoses Not on filedocumented in this encounter Care Teams Production Manager Relationship Specialty Start Date End Date Meme Steel MD [address] [place] [address] 105 [place] [address] PCP - General Pediatrics 06/05/18 04/25/22 No Pcp, Pcp PCP - General 06/08/22 07/19/22 Guadalupe Mcbride MD PCP - General Family Medicine 07/20/22 11/01/23 Sena Dominguez PA [address] [place] [address] [place] [address] PCP - BRADY Physician Neck Band Maker 11/02/23 Levy Barry MD [address] [place] [address] [place] [address] PCP - General Family Medicine 12/20/23 documented as of this encounter
--- OUTSIDE RECORDS SUMMARY | 2025-08-14 15:17 | XMS_ITS | Encounter Summary ---
Author Organization [facility] work ([facility]) Address [address] [place] [address] Care Team Providers Care Social Media Designer Name Role Phone Meme Steel MD Primary Care Provider [phone] Pcp, Pcp Primary Care Provider Unavailabl Guadalupe Bardales MD Primary Care Provider [phone] Sena Dominguez Unavailable [phone] Levy Barry MD Primary Care Provider Unavailab le Source Comments The information that you have received may contain highly confidential and/or federally protected health information. This information has been disclosed to you from records protected by [facility]. The law prohibits you from [...] contact the sender immediately.[facility] ([facility]) Encounter Details Date Type Department Care Team (Late st Contact Info) Description 10/23/2009 Historical Note [facility] Compare And Share System Devyn Vásquez MD [address] [place] [address] [phone] Social History Tobacco Use Types Packs/Day Years [...] Visit LEATHA CARRILLO - [facility] [address] [place] [phone] Brenda Clay MD [address] [facility] [address] [place] [address] 04/15/2026 10:00 AM EDT Office Visit [facility]HA [facility] at [facility] + [facility] [address] [place] [address] Sena Dominguez PA [address] [place] [address] documented as of this encounter Visit Diagnoses Not on filedocumented in this encounter Care Teams Social Media Designer Relationship Specialty Start Date End Date Meme Steel MD [address] [place] [address] [place] [address] PCP - General Pediatrics 06/05/18 04/25/22 No Pcp, Pcp PCP - General 06/08/22 07/19/22 Guadalupe Mcbride MD PCP - General Family Medicine 07/20/22 11/01/23 Sena Dominguez PA [address] [place] [address] [place] [address] PCP - BRADY Physician Intermodal Customer Service 11/02/23 Levy Barry MD [address] [place] [address] [place] [address] PCP - General Family Medicine 12/20/23 documented as of this encounter
--- OUTSIDE RECORDS SUMMARY | 2025-08-14 15:17 | XMS_ITS | Encounter Summary ---
Author Organization [facility] work ([facility]) Address [address] [place] [address] Care Team Providers Care Stripper And Opaquer Apprentice Name Role Phone Meme Steel MD Primary Care Provider [phone] Pcp, Pcp Primary Care Provider Unavailabl Guadalupe Bardales MD Primary Care Provider [phone] Sena Dominguez Unavailable Levy Barry MD Primary Care Provider Unavailab le Source Comments The information that you have received may contain highly confidential and/or federally protected health information. This information has been disclosed to you from records protected by [facility]. The law prohibits you [...] contact the sender immediately.[facility] ([facility]) Encounter Details Date Type Department Care Team (Late st Contact Info) Description 05/31/2005 Historical Note [facility] bLife System Devyn Vásquez MD [address] [place] [address] [phone] Social History Tobacco Use Types Packs/Day Years [...] LEATHA CARRILLO - [facility] [address] [place] [phone] Brenda Clay MD [address] [facility] [address] [place] [address] 04/15/2026 10:00 AM EDT Office Visit [facility]HA [facility] + [facility] [address] [place] [address] Sena Dominguez PA [address] [facility] [place] [address] documented as of this encounter Visit Diagnoses Not on filedocumented in this encounter Care Teams Stripper And Opaquer Apprentice Relationship Specialty Start Date End Date Meme Steel MD [address] [place] [address] 105 [place] [address] PCP - General Pediatrics 06/05/18 04/25/22 No Pcp, Pcp PCP - General 06/08/22 07/19/22 Guadalupe Mcbride MD PCP - General Family Medicine 07/20/22 11/01/23 Sena Dominguez PA [address] [place] [address] [place] [address] PCP - BRADY Physician Offal Separator 11/02/23 Levy Barry MD [address] [place] [address] [place] [address] PCP - General Family Medicine 12/20/23 documented as of this encounter
--- OUTSIDE RECORDS SUMMARY | 2025-08-14 15:17 | XMS_ITS | Encounter Summary ---
Author Organization [facility] work ([facility]) Address [address] [place] [address] Care Team Providers Care Medical Records Supervisor Name Role Phone Meme Steel MD Primary Care Provider [phone] Pcp, Pcp Primary Care Provider Unavailabl Guadalupe Bardales MD Primary Care Provider [phone] Sena Dominguez Unavailable Levy Barry MD Primary Care Provider Unavailab le Source Comments The information that you have received may contain highly confidential and/or federally protected health information. This information has been disclosed to you from records protected by [facility]. The law prohibits you from making [...] error, please contact the sender immediately.[facility] ([facility]) Encounter Details Date Type Department Care Team (Late st Contact Info) Description 09/01/2016 Historical Note [facility] Avuxi System Devyn Vásquez MD [address] [place] [address] [phone] Social History Tobacco Use Types Packs/Day Years [...] CARRILLO - [facility] [address] [facility] [address] [place] [phone] Brenda Clay MD [address] [facility] [address] [place] [address] 04/15/2026 10:00 AM EDT Office Visit [facility]HA [facility] at [facility] + [facility] [address] [facility] [address] [facility] [address] [place] [address] Sena Dominguez PA [address] [facility] [place] [address] documented as of this encounter Visit Diagnoses Not on filedocumented in this encounter Care Teams Medical Records Supervisor Relationship Specialty Start Date End Date Meme Steel MD [address] [place] [address] 105 [place] [address] PCP - General Pediatrics 06/05/18 04/25/22 No Pcp, Pcp PCP - General 06/08/22 07/19/22 Guadalupe Mcbride MD PCP - General Family Medicine 07/20/22 11/01/23 Sena Dominguez PA [address] [place] [address] [place] [address] PCP - BRADY Physician Race Car Driver 11/02/23 Levy Barry MD [address] [place] [address] [place] [address] PCP - General Family Medicine 12/20/23 documented as of this encounter
--- OUTSIDE RECORDS SUMMARY | 2025-08-14 15:17 | XMS_ITS | Encounter Summary ---
Author Organization [facility] work ([facility]) Address [address] [place] [address] Care Team Providers Care Cell Room Supervisor Name Role Phone Meme Steel MD Primary Care Provider [phone] Pcp, Pcp Primary Care Provider Unavailabl Guadalupe Bardales MD Primary Care Provider [phone] Sena Dominguez Unavailable [phone] Levy Barry MD Primary Care Provider Unavailab le Source Comments The information that you have received may contain highly confidential and/or federally protected health information. This information has been disclosed to you from records protected by [facility]. The law prohibits you from making [...] sender immediately.[facility] ([facility]) Encounter Details Date Type Department Care Team (Late st Contact Info) Description 08/10/2009 Historical Note [facility] THERAVECTYS System Devyn Vásquez MD [address] [place] [address] [phone] Social History Tobacco Use Types Packs/Day Years [...] LEATHA CARRILLO - [facility] [address] [place] [phone] Brenda Clay MD [address] [facility] [address] [place] [address] 04/15/2026 10:00 AM EDT Office Visit [facility]HA [facility] + [facility] [address] [facility] [address] [place] [address] Sena Dominguez PA [address] [facility] [place] [address] documented as of this encounter Visit Diagnoses Not on filedocumented in this encounter Care Teams Cell Room Supervisor Relationship Specialty Start Date End Date Meme Steel MD [address] [place] [address] 105 [place] [address] PCP - General Pediatrics 06/05/18 04/25/22 No Pcp, Pcp PCP - General 06/08/22 07/19/22 Guadalupe Mcbride MD PCP - General Family Medicine 07/20/22 11/01/23 Sena Dominguez PA [address] [place] [address] [place] [address] PCP - BRADY Physician Infrastructure Director 11/02/23 Levy Barry MD [address] [place] [address] [place] [address] PCP - General Family Medicine 12/20/23 documented as of this encounter
--- OUTSIDE RECORDS SUMMARY | 2025-08-14 15:17 | XMS_ITS | Encounter Summary ---
Author Organization [facility] work ([facility]) Address [address] [place] [address] Care Team Providers Care Maintenance And Operations Supervisor Name Role Phone Meme Steel MD Primary Care Provider [phone] Pcp, Pcp Primary Care Provider Unavailabl Guadalupe Bardales MD Primary Care Provider [phone] Sena Dominguez Unavailable [phone] Levy Barry MD Primary Care Provider Unavailab le Source Comments The information that you have received may contain highly confidential and/or federally protected health information. This information has been disclosed to you from records protected by [facility]. The law prohibits you [...] sender immediately.[facility] ([facility]) Encounter Details Date Type Department Care Team (Late st Contact Info) Description 06/14/2011 Historical Note [facility] Adaptive Payments System Devyn Vásquez MD [address] [place] [address] [phone] Social History Tobacco Use Types Packs/Day Years [...] LEATHA CARRILLO - [facility] [address] [facility] [address] [place] [phone] Brenda Clay MD [address] [facility] [address] [place] [address] 04/15/2026 10:00 AM EDT Office Visit [facility]HA [facility] at [facility] + [facility] [address] [facility] [facility] [address] [place] [address] Sena Dominguez PA [address] [facility] [place] [address] documented as of this encounter Visit Diagnoses Not on filedocumented in this encounter Care Teams Maintenance And Operations Supervisor Relationship Specialty Start Date End Date Meme Steel MD [address] [place] [address] 105 [place] [address] PCP - General Pediatrics 06/05/18 04/25/22 No Pcp, Pcp PCP - General 06/08/22 07/19/22 Guadalupe Mcbride MD PCP - General Family Medicine 07/20/22 11/01/23 Sena Dominguez PA [address] [place] [address] [place] [address] PCP - BRADY Physician Chief Lending Officer 11/02/23 Levy Barry MD [address] [place] [address] [place] [address] PCP - General Family Medicine 12/20/23 documented as of this encounter
--- OUTSIDE RECORDS SUMMARY | 2025-08-14 15:17 | XMS_ITS | Encounter Summary ---
Author Organization [facility] work ([facility]) Address [address] [place] [address] Care Team Providers Care Laboratory Inspector Name Role Phone Meme Steel MD Primary Care Provider [phone] Pcp, Pcp Primary Care Provider Unavailabl Guadalupe Bardales MD Primary Care Provider [phone] Sena Dominguez Unavailable [phone] Levy Barry MD Primary Care Provider Unavailab le Source Comments The information that you have received may contain highly confidential and/or federally protected health information. This information has been disclosed to you from records protected by [facility]. The law prohibits you from [...] Contact Info) Description 05/12/2005 Historical Note [facility] MyCadbox System Devyn Vásquez MD [address] [place] [address] [phone] Social History Tobacco Use Types Packs/Day Years [...] LEATHA CARRILLO - [facility] [address] [facility] [place] [phone] Brenda Clay MD [address] [facility] [address] [place] [address] 04/15/2026 10:00 AM EDT Office Visit [facility]HA [facility] at [facility] + [facility] [address] [place] [address] Sena Dominguez PA [address] [facility] [place] [address] documented as of this encounter Visit Diagnoses Not on filedocumented in this encounter Care Teams Laboratory Inspector Relationship Specialty Start Date End Date Meme Steel MD [address] [place] [address] 105 [place] [address] PCP - General Pediatrics 06/05/18 04/25/22 No Pcp, Pcp PCP - General 06/08/22 07/19/22 Guadalupe Mcbride MD PCP - General Family Medicine 07/20/22 11/01/23 Sena Dominguez PA [address] [place] [address] [place] [address] PCP - BRADY Physician Manager Of Case 11/02/23 Levy Barry MD [address] [place] [address] [place] [address] PCP - General Family Medicine 12/20/23 documented as of this encounter
--- OUTSIDE RECORDS SUMMARY | 2025-08-14 15:17 | XMS_ITS | Encounter Summary ---
Author Organization [facility] work ([facility]) Address [address] [place] [address] Care Team Providers Care Alumni Relations Officer Name Role Phone Meme Steel MD Primary Care Provider [phone] Pcp, Pcp Primary Care Provider Unavailabl Guadalupe Bardales MD Primary Care Provider [phone] Sena Dominguez Unavailable [phone] Levy Barry MD Primary Care Provider Unavailab le Source Comments The information that you have received may contain highly confidential and/or federally protected health information. This information has been disclosed to you from records protected by [facility]. The law prohibits you from [...] Contact Info) Description 01/06/2006 Historical Note [facility] Shuttersong System Devyn Vásquez MD [address] [place] [address] [phone] Social History Tobacco Use Types Packs/Day Years [...] LEATHA CARRILLO - [facility] [address] [facility] [address] [place] [phone] Brenda Clay MD [address] [facility] [address] [place] [address] 04/15/2026 10:00 AM EDT Office Visit [facility]HA [facility] at [facility] [address] [facility] [address] [place] [address] Sena Dominguez PA [address] [facility] [place] [address] documented as of this encounter Visit Diagnoses Not on filedocumented in this encounter Care Teams Alumni Relations Officer Relationship Specialty Start Date End Date Meme Steel MD [address] [place] [address] 105 [place] [address] PCP - General Pediatrics 06/05/18 04/25/22 No Pcp, Pcp PCP - General 06/08/22 07/19/22 Guadalupe Mcbride MD PCP - General Family Medicine 07/20/22 11/01/23 Sena Dominguez PA [address] [place] [address] [place] [address] PCP - BRADY Physician Stopping Builder 11/02/23 Levy Barry MD [address] [place] [address] [place] [address] PCP - General Family Medicine 12/20/23 documented as of this encounter
--- OUTSIDE RECORDS SUMMARY | 2025-08-14 15:17 | XMS_ITS | Encounter Summary ---
Author Organization [facility] work ([facility]) Address [address] [place] [address] Care Team Providers Care Mail Handler Equipment Operator Name Role Phone Meme Steel MD Primary Care Provider [phone] Pcp, Pcp Primary Care Provider Unavailabl Guadalupe Bardales MD Primary Care Provider [phone] Sena Dominguez Unavailable [phone] Levy Barry MD Primary Care Provider Unavailab le Source Comments The information that you have received may contain highly confidential and/or federally protected health information. This information has been disclosed to you from records protected by [facility]. The law prohibits you from [...] please contact the sender immediately.[facility] ([facility]) Encounter Details Date Type Department Care Team (Late st Contact Info) Description 09/10/2009 Historical Note [facility] InView Technology System Devyn Vásquez MD [address] [place] [address] [phone] Social History Tobacco Use Types Packs/Day Years [...] CARRILLO - [facility] [address] [facility] [address] [place] [phone] Brenda Clay MD [address] [facility] [address] [place] [address] 04/15/2026 10:00 AM EDT Office Visit LEATHA [facility] at [facility] + [facility] [address] [facility] [address] [place] [address] Sena Dominguez PA [address] [facility] [place] [address] documented as of this encounter Visit Diagnoses Not on filedocumented in this encounter Care Teams Mail Handler Equipment Operator Relationship Specialty Start Date End Date Meme Steel MD [address] [place] [address] 105 [place] [address] PCP - General Pediatrics 06/05/18 04/25/22 No Pcp, Pcp PCP - General 06/08/22 07/19/22 Guadalupe Mcbride MD PCP - General Family Medicine 07/20/22 11/01/23 Sena Dominguez PA [address] [place] [address] [place] [address] PCP - BRADY Physician Linux Network Engineer 11/02/23 Levy Barry MD [address] [place] [address] [place] [address] PCP - General Family Medicine 12/20/23 documented as of this encounter
--- OUTSIDE RECORDS SUMMARY | 2025-08-14 15:17 | XMS_ITS | Encounter Summary ---
Author Organization [facility] work ([facility]) Address [address] [place] [address] Care Team Providers Care Destination Coordinator Name Role Phone Meme Steel MD Primary Care Provider [phone] Pcp, Pcp Primary Care Provider Unavailabl Guadalupe Bardales MD Primary Care Provider Sena Dominguez Unavailable [phone] Levy Barry MD Primary Care Provider Unavailab le Source Comments The information that you have received may contain highly confidential and/or federally protected health information. This information has been disclosed to you from records protected by [facility]. The law prohibits you from [...] please contact the sender immediately.[facility] ([facility]) Encounter Details Date Type Department Care Team (Late st Contact Info) Description 06/02/2005 Historical Note [facility] Devyn Vásquez MD [address] [place] [address] [phone] Social History Tobacco Use Types Packs/Day Years [...] LEATHA CARRILLO - [facility] [address] [facility] [address] [place] [phone] Brenda Clay MD [address] [facility] [address] [place] [address] 04/15/2026 10:00 AM EDT Office Visit [facility]ATHA [facility] + [facility] [address] [facility] [address] [place] [address] Sena Dominguez PA [address] [facility] [place] [address] documented as of this encounter Visit Diagnoses Not on filedocumented in this encounter Care Teams Destination Coordinator Relationship Specialty Start Date End Date Meme Steel MD [address] [place] [address] 105 [place] [address] PCP - General Pediatrics 06/05/18 04/25/22 No Pcp, Pcp PCP - General 06/08/22 07/19/22 Guadalupe Mcbride MD PCP - General Family Medicine 07/20/22 11/01/23 Sena Dominguez PA [address] [place] [address] [place] [address] PCP - BRADY Physician Household Assistant 11/02/23 Levy Barry MD [address] [place] [address] [place] [address] PCP - General Family Medicine 12/20/23 documented as of this encounter
--- OUTSIDE RECORDS SUMMARY | 2025-08-14 15:17 | XMS_ITS | Encounter Summary ---
Author Organization [facility] work ([facility]) Address [address] [place] [address] Care Team Providers Care Manager Drilling Name Role Phone Meme Steel MD Primary Care Provider [phone] Pcp, Pcp Primary Care Provider Unavailabl Guadalupe Bardales MD Primary Care Provider [phone] Sena Dominguez Unavailable [phone] Levy Barry MD Primary Care Provider Unavailab le Source Comments The information that you have received may contain highly confidential and/or federally protected health information. This information has been disclosed to you from records protected by [facility]. The law prohibits you from [...] contact the sender immediately.[facility] ([facility]) Encounter Details Date Type Department Care Team (Late st Contact Info) Description 01/06/2006 Historical Note [facility] DiObex System Devyn Vásquez MD [address] [place] [address] [phone] Social History Tobacco Use Types Packs/Day Years [...] - Located [facility] [address] [facility] [address] [place] [phone] Brenda Clay MD [address] [facility] [address] [place] [address] 04/15/2026 10:00 AM EDT Office Visit LE[facility]HA [facility] + [facility] [address] [facility] [address] [place] [address] Sena Dominguez PA [address] [facility] [place] [address] documented as of this encounter Visit Diagnoses Not on filedocumented in this encounter Care Teams Manager Drilling Relationship Specialty Start Date End Date Meme Steel MD [address] [place] [address] 105 [place] [address] PCP - General Pediatrics 06/05/18 04/25/22 No Pcp, Pcp PCP - General 06/08/22 07/19/22 Guadalupe Mcbride MD PCP - General Family Medicine 07/20/22 11/01/23 Sena Dominguez PA [address] [place] [address] [place] [address] PCP - BRADY Physician Life Science Taxonomist 11/02/23 Levy Barry MD [address] [place] [address] [place] [address] PCP - General Family Medicine 12/20/23 documented as of this encounter
--- OUTSIDE RECORDS SUMMARY | 2025-08-14 15:17 | XMS_ITS | Encounter Summary ---
Author Organization [facility] work ([facility]) Address [address] [place] [address] Care Team Providers Care Staff Design Engineer Name Role Phone Meme Steel MD Primary Care Provider [phone] Pcp, Pcp Primary Care Provider Unavailabl Guadalupe Bardales MD Primary Care Provider [phone] Sena Dominguez Unavailable Levy Barry MD Primary Care Provider Unavailab le Source Comments The information that you have received may contain highly confidential and/or federally protected health information. This information has been disclosed to you from records protected by [facility]. The law prohibits you from making [...] the sender immediately.[facility] ([facility]) Encounter Details Date Type Department Care Team (Late st Contact Info) Description 11/21/2005 Historical Note [facility] [employer] System Devyn Vásquez MD [address] [place] [address] [phone] Social History Tobacco Use Types Packs/Day Years [...] - [facility] [address] [facility] [address] [place] [phone] Brenda Clay MD [address] [facility] [address] [place] [address] 04/15/2026 10:00 AM EDT Office Visit [facility] [address] [facility] [address] [place] [address] Sena Dominguez PA [address] [facility] [place] [address] documented as of this encounter Visit Diagnoses Not on filedocumented in this encounter Care Teams Staff Design Engineer Relationship Specialty Start Date End Date Meme Steel MD [address] [place] [address] 105 [place] [address] PCP - General Pediatrics 06/05/18 04/25/22 No Pcp, Pcp PCP - General 06/08/22 07/19/22 Guadalupe Mcbride MD PCP - General Family Medicine 07/20/22 11/01/23 Sena Dominguez PA [address] [place] [address] [place] [address] PCP - BRADY Physician City Driver 11/02/23 Levy Barry MD [address] [place] [address] [place] [address] PCP - General Family Medicine 12/20/23 documented as of this encounter
--- OUTSIDE RECORDS SUMMARY | 2025-08-14 15:17 | XMS_ITS | Encounter Summary ---
Author Organization [facility] work ([facility]) Address [address] [place] [address] Care Team Providers Care Check Cashier Name Role Phone Meme Steel MD Primary Care Provider [phone] Pcp, Pcp Primary Care Provider Unavailabl Guadalupe Bardales MD Primary Care Provider [phone] Sena Dominguez Unavailable Levy Barry MD Primary Care Provider Unavailab le Source Comments The information that you have received may contain highly confidential and/or federally protected health information. This information has been disclosed to you from records protected by [facility]. The law prohibits you [...] contact the sender immediately.[facility] ([facility]) Encounter Details Date Type Department Care Team (Late st Contact Info) Description 06/20/2005 Historical Note [facility] [employer] System Devyn Vásquez MD [address] [place] [address] [phone] Social History Tobacco Use Types Packs/Day Years [...] LEATHA CARRILLO - [facility] at [facility] [address] [facility] [address] [place] [phone] Brenda Clay MD [address] [facility] [address] [place] [address] 04/15/2026 10:00 AM EDT Office Visit [facility] at [facility] [address] [facility] [address] [place] [address] Sena Dominguez PA [address] [facility] [place] [address] documented as of this encounter Visit Diagnoses Not on filedocumented in this encounter Care Teams Check Cashier Relationship Specialty Start Date End Date Meme Steel MD [address] [place] [address] 105 [place] [address] PCP - General Pediatrics 06/05/18 04/25/22 No Pcp, Pcp PCP - General 06/08/22 07/19/22 Guadalupe Mcbride MD PCP - General Family Medicine 07/20/22 11/01/23 Sena Dominguez PA [address] [place] [address] [place] [address] PCP - BRADY Physician Sheet Metal Assembler And Riveter 11/02/23 Levy Barry MD [address] [place] [address] [place] [address] PCP - General Family Medicine 12/20/23 documented as of this encounter
--- OUTSIDE RECORDS SUMMARY | 2025-08-14 15:17 | XMS_ITS | Encounter Summary ---
Author Organization [facility] work ([facility]) Address [address] [place] [address] Care Team Providers Care Director Of Clinical Trials Name Role Phone Meme Steel MD Primary Care Provider [phone] Pcp, Pcp Primary Care Provider Unavailabl Guadalupe Bardales MD Primary Care Provider [phone] Sena Dominguez Unavailable [phone] Levy Barry MD Primary Care Provider Unavailab le Source Comments The information that you have received may contain highly confidential and/or federally protected health information. This information has been disclosed to you from records protected by [facility]. The law prohibits you from [...] contact the sender immediately.[facility] ([facility]) Encounter Details Date Type Department Care Team (Late st Contact Info) Description 05/31/2005 Historical Note [facility] [employer] System Devyn Vásquez MD [address] [place] [address] [phone] Social History Tobacco Use Types Packs/Day Years [...] LEATHA CARRILLO - [facility] [address] [facility] [address] [place] [phone] Brenda Clay MD [address] [facility] [address] [place] [address] 04/15/2026 10:00 AM EDT Office Visit LE[facility]HA [facility] at [facility] [address] [facility] [address] [place] [address] Sena Dominguez PA [address] [facility] [place] [address] documented as of this encounter Visit Diagnoses Not on filedocumented in this encounter Care Teams Director Of Clinical Trials Relationship Specialty Start Date End Date Meme Steel MD [address] [place] [address] 105 [place] [address] PCP - General Pediatrics 06/05/18 04/25/22 No Pcp, Pcp PCP - General 06/08/22 07/19/22 Guadalupe Mcbride MD PCP - General Family Medicine 07/20/22 11/01/23 Sena Dominguez PA [address] [place] [address] [place] [address] PCP - BRADY Physician Ios Architect 11/02/23 Levy Barry MD [address] [place] [address] [place] [address] PCP - General Family Medicine 12/20/23 documented as of this encounter
--- OUTSIDE RECORDS SUMMARY | 2025-08-14 15:17 | XMS_ITS | Encounter Summary ---
Author Organization [facility] work ([facility]) Address [address] [place] [address] Care Team Providers Care Art Dealer Name Role Phone Meme Steel MD Primary Care Provider [phone] Pcp, Pcp Primary Care Provider Unavailabl Guadalupe Bardales MD Primary Care Provider [phone] Sena Dominguez Unavailable [phone] Levy Barry MD Primary Care Provider Unavailab le Source Comments The information that you have received may contain highly confidential and/or federally protected health information. This information has been disclosed to you from records protected by [facility]. The law prohibits you [...] [facility] [address] [facility] ([facility]) Encounter Details Date Type Department Care Team (Late st Contact Info) Description 09/08/2011 Historical Note [facility] [employer] [facility] Devyn Vásquez MD [address] [place] [address] [phone] Social History Tobacco Use Types Packs/Day Years [...] Visit LEATHA CARRILLO - [facility] [address] [facility] [address] [place] [phone] Brenda Clay MD [address] [facility] [address] [place] [address] 04/15/2026 10:00 AM EDT Office Visit [facility]HA [facility] at [facility] + [facility] [address] [facility] [address] [place] [address] Sena Dominguez PA [address] [facility] [place] [address] documented as of this encounter Visit Diagnoses Not on filedocumented in this encounter Care Teams Art Dealer Relationship Specialty Start Date End Date Meme Steel MD [address] [place] [address] 105 [place] [address] PCP - General Pediatrics 06/05/18 04/25/22 No Pcp, Pcp PCP - General 06/08/22 07/19/22 Guadalupe Mcbride MD PCP - General Family Medicine 07/20/22 11/01/23 Sena Dominguez PA [address] [place] [address] [place] [address] PCP - BRADY Physician Nursing Project Coordinator 11/02/23 Levy Barry MD [address] [place] [address] [place] [address] PCP - General Family Medicine 12/20/23 documented as of this encounter
--- OUTSIDE RECORDS SUMMARY | 2025-08-14 15:17 | XMS_ITS | Encounter Summary ---
Author Organization [facility] work ([facility]) Address [address] [place] [address] Care Team Providers Care Tie Tape Machine Operator Name Role Phone Meme Steel MD Primary Care Provider [phone] Pcp, Pcp Primary Care Provider Unavailabl Guadalupe Bardales MD Primary Care Provider [phone] Sena Dominguez Unavailable [phone] Levy Barry MD Primary Care Provider Unavailab le Source Comments The information that you have received may contain highly confidential and/or federally protected health information. This information has been disclosed to you from records protected by [facility]. The law prohibits you from making [...] contact the sender immediately.[facility] ([facility]) Encounter Details Date Type Department Care Team (Late st Contact Info) Description 11/28/2005 Historical Note [facility] [employer] System Devyn Vásquez MD [address] [place] [address] [phone] Social History Tobacco Use Types Packs/Day Years [...] LEATHA CARRILLO - [facility] [address] [facility] [address] [place] [phone] Brenda Clay MD [address] [facility] [address] [place] [address] 04/15/2026 10:00 AM EDT Office Visit [facility]HA [facility] [address] [facility] [address] [place] [address] Sena Dominguez PA [address] [facility] [place] [address] documented as of this encounter Visit Diagnoses Not on filedocumented in this encounter Care Teams Tie Tape Machine Operator Relationship Specialty Start Date End Date Meme Steel MD [address] [place] [address] 105 [place] [address] PCP - General Pediatrics 06/05/18 04/25/22 No Pcp, Pcp PCP - General 06/08/22 07/19/22 Guadalupe Mcbride MD PCP - General Family Medicine 07/20/22 11/01/23 Sena Dominguez PA [address] [place] [address] [place] [address] PCP - BRADY Physician Manager Lean 11/02/23 Levy Barry MD [address] [place] [address] [place] [address] PCP - General Family Medicine 12/20/23 documented as of this encounter
--- OUTSIDE RECORDS SUMMARY | 2025-08-14 15:17 | XMS_ITS | Encounter Summary ---
Author Organization [facility] work ([facility]) Address [address] [place] [address] Care Team Providers Care Commercial Census Taker Name Role Phone Meme Steel MD Primary Care Provider [phone] Pcp, Pcp Primary Care Provider Unavailabl Guadalupe Bardales MD Primary Care Provider [phone] Sena Dominguez Unavailable [phone] Levy Barry MD Primary Care Provider Unavailab le Source Comments The information that you have received may contain highly confidential and/or federally protected health information. This information has been disclosed to you from records protected by [facility]. The law prohibits you from [...] [facility] [address] [facility] ([facility]) Encounter Details Date Type Department Care Team (Late st Contact Info) Description 11/10/2005 Historical Note [facility] [employer] System Devyn Vásquez MD [address] [place] [address] [phone] Social History Tobacco Use Types Packs/Day Years [...] LEATHA CARRILLO - [facility] [address] [facility] [address] [place] [phone] Brenda Clay MD [address] [facility] [address] [place] [address] 04/15/2026 10:00 AM EDT Office Visit [facility]HA [facility] at [facility] + [facility] [address] [facility] [address] [place] [address] Sena Dominguez PA [address] [facility] [place] [address] documented as of this encounter Visit Diagnoses Not on filedocumented in this encounter Care Teams Commercial Census Taker Relationship Specialty Start Date End Date Meme Steel MD [address] [place] [address] 105 [place] [address] PCP - General Pediatrics 06/05/18 04/25/22 No Pcp, Pcp PCP - General 06/08/22 07/19/22 Guadalupe Mcbride MD PCP - General Family Medicine 07/20/22 11/01/23 Sena Dominguez PA [address] [place] [address] [place] [address] PCP - BRADY Physician Menagerie Caretaker 11/02/23 Levy Barry MD [address] [place] [address] [place] [address] PCP - General Family Medicine 12/20/23 documented as of this encounter
--- OUTSIDE RECORDS SUMMARY | 2025-08-14 15:17 | XMS_ITS | Encounter Summary ---
Author Organization [facility] work ([facility]) Address [address] [place] [address] Care Team Providers Care Special Events Manager Name Role Phone Meme Steel MD Primary Care Provider [phone] Pcp, Pcp Primary Care Provider Unavailabl Guadalupe Bardales MD Primary Care Provider [phone] Sena Dominguez Unavailable [phone] Levy Barry MD Primary Care Provider Unavailab le Source Comments The information that you have received may contain highly confidential and/or federally protected health information. This information has been disclosed to you from records protected by [facility]. The law prohibits you [...] please contact the sender immediately.[facility] ([facility]) Encounter Details Date Type Department Care Team (Late st Contact Info) Description 05/12/2005 Historical Note [facility] [employer] System Devyn Vásquez MD [address] [place] [address] [phone] Social History Tobacco Use Types Packs/Day [...] Visit LEATHA CARRILLO - [facility] [address] [facility] [address] [place] [phone] Brenda Clay MD [address] [facility] [address] [place] [address] 04/15/2026 10:00 AM EDT Office Visit LEATHA Primary [facility] at [facility] + [facility] [address] [facility] [address] [place] [address] Sena Dominguez PA [address] [facility] [place] [address] documented as of this encounter Visit Diagnoses Not on filedocumented in this encounter Care Teams Special Events Manager Relationship Specialty Start Date End Date Meme Steel MD [address] [place] [address] 105 [place] [address] PCP - General Pediatrics 06/05/18 04/25/22 No Pcp, Pcp PCP - General 06/08/22 07/19/22 Guadalupe Mcbride MD PCP - General Family Medicine 07/20/22 11/01/23 Sena Dominguez PA [address] [place] [address] [place] [address] PCP - BRADY Physician Phlebotomy Technician 11/02/23 Levy Barry MD [address] [place] [address] [place] [address] PCP - General Family Medicine 12/20/23 documented as of this encounter
--- OUTSIDE RECORDS SUMMARY | 2025-08-14 15:17 | XMS_ITS | Encounter Summary ---
Author Organization [facility] work ([facility]) Address [address] [place] [address] Care Team Providers Care Flowers Salesperson Name Role Phone Meme Steel MD Primary Care Provider [phone] Pcp, Pcp Primary Care Provider Unavailabl Guadalupe Bardales MD Primary Care Provider [phone] Sena Dominguez Unavailable [phone] Levy Barry MD Primary Care Provider Unavailab le Source Comments The information that you have received may contain highly confidential and/or federally protected health information. This information has been disclosed to you from records protected by [facility]. The law prohibits you from making [...] please contact the sender immediately.[facility] ([facility]) Encounter Details Date Type Department Care Team (Late st Contact Info) Description 08/13/2009 Historical Note [facility] [employer] System Devyn Vásquez MD [address] [place] [address] [phone] Social History Tobacco Use Types Packs/Day [...] LEATHA CARRILLO - [facility] [address] [facility] [address] [place] [phone] Brenda Clay MD [address] [facility] [address] [place] [address] 04/15/2026 10:00 AM EDT Office Visit LEATHA [facility] at [facility] + [facility] [address] [facility] [address] [place] [address] Sena Dominguez PA [address] [facility] [place] [address] documented as of this encounter Visit Diagnoses Not on filedocumented in this encounter Care Teams Flowers Salesperson Relationship Specialty Start Date End Date Meme Steel MD [address] [place] [address] 105 [place] [address] PCP - General Pediatrics 06/05/18 04/25/22 No Pcp, Pcp PCP - General 06/08/22 07/19/22 Guadalupe Mcbride MD PCP - General Family Medicine 07/20/22 11/01/23 Sena Dominguez PA [address] [place] [address] [place] [address] PCP - BRADY Physician Forepart Laster 11/02/23 Levy Barry MD [address] [place] [address] [place] [address] PCP - General Family Medicine 12/20/23 documented as of this encounter
--- OUTSIDE RECORDS SUMMARY | 2025-08-14 15:17 | XMS_ITS | Encounter Summary ---
Author Organization [facility] work ([facility]) Address [address] [place] [address] Care Team Providers Care Wound Care Technician Name Role Phone Meme Steel MD Primary Care Provider [phone] Pcp, Pcp Primary Care Provider Unavailabl Guadalupe Bardales MD Primary Care Provider [phone] Sena Dominguez Unavailable [phone] Levy Barry MD Primary Care Provider Unavailab le Source Comments The information that you have received may contain highly confidential and/or federally protected health information. This information has been disclosed to you from records protected by [facility]. The law prohibits you [...] please contact the sender immediately.[facility] ([facility]) Encounter Details Date Type Department Care Team (Late st Contact Info) Description 09/01/2009 Historical Note [facility] [employer] System Devyn Vásquez MD [address] [place] [address] [phone] Social History Tobacco Use Types Packs/Day Years [...] CARRILLO - [facility] [address] [facility] [address] [place] [phone] Brenda Clay MD [address] [facility] [address] [place] [address] 04/15/2026 10:00 AM EDT Office Visit LEATHA Primary [facility] at [facility] + [facility] [address] [facility] [address] [place] [address] Sena Dominguez PA [address] [facility] [place] [address] documented as of this encounter Visit Diagnoses Not on filedocumented in this encounter Care Teams Wound Care Technician Relationship Specialty Start Date End Date Meme Steel MD [address] [place] [address] 105 [place] [address] PCP - General Pediatrics 06/05/18 04/25/22 No Pcp, Pcp PCP - General 06/08/22 07/19/22 Guadalupe Mcbride MD PCP - General Family Medicine 07/20/22 11/01/23 Sena Dominguez PA [address] [place] [address] [place] [address] PCP - BRADY Physician Human Services Instructor 11/02/23 Levy Barry MD [address] [place] [address] [place] [address] PCP - General Family Medicine 12/20/23 documented as of this encounter
--- OUTSIDE RECORDS SUMMARY | 2025-08-14 15:17 | XMS_ITS | Encounter Summary ---
Author Organization [facility] work ([facility]) Address [address] [place] [address] Care Team Providers Care Printing Machinist Name Role Phone Meme Steel MD Primary Care Provider [phone] Pcp, Pcp Primary Care Provider Unavailabl Guadalupe Bardales MD Primary Care Provider [phone] Sena Dominguez Unavailable [phone] Levy Barry MD Primary Care Provider Unavailab le Source Comments The information that you have received may contain highly confidential and/or federally protected health information. This information has been disclosed to you from records protected by [facility]. The law prohibits you [...] contact the sender immediately.[facility] ([facility]) Encounter Details Date Type Department Care Team (Late st Contact Info) Description 09/10/2009 Historical Note [facility] [employer] System Devyn Vásquez MD [address] [place] [address] [phone] Social History Tobacco Use Types Packs/Day Years [...] LEATHA CARRILLO - [facility] [address] [facility] [address] [place] [phone] Brenda Clay MD [address] [facility] [address] [place] [address] 04/15/2026 10:00 AM EDT Office Visit LE[facility]HA [facility] at [facility] + [facility] [address] [facility] [address] [place] [address] Sena Dominguez PA [address] [facility] [place] [address] documented as of this encounter Visit Diagnoses Not on filedocumented in this encounter Care Teams Printing Machinist Relationship Specialty Start Date End Date Meme Steel MD [address] [place] [address] 105 [place] [address] PCP - General Pediatrics 06/05/18 04/25/22 No Pcp, Pcp PCP - General 06/08/22 07/19/22 Guadalupe Mcbride MD PCP - General Family Medicine 07/20/22 11/01/23 Sena Dominguez PA [address] [place] [address] [place] [address] PCP - BRADY Physician Digital Tech 11/02/23 Levy Barry MD [address] [place] [address] [place] [address] PCP - General Family Medicine 12/20/23 documented as of this encounter
--- OUTSIDE RECORDS SUMMARY | 2025-08-14 15:17 | XMS_ITS | Encounter Summary ---
Author Organization [facility] work ([facility]) Address [address] [place] [address] Care Team Providers Care Psychology Teacher Name Role Phone Meme Steel MD Primary Care Provider [phone] Pcp, Pcp Primary Care Provider Unavailabl Guadalupe Bardales MD Primary Care Provider [phone] Sena Dominguez Unavailable [phone] Levy Barry MD Primary Care Provider Unavailab le Source Comments The information that you have received may contain highly confidential and/or federally protected health information. This information has been disclosed to you from records protected by [facility]. The law prohibits you [...] contact the sender immediately.[facility] ([facility]) Encounter Details Date Type Department Care Team (Late st Contact Info) Description 05/31/2005 Historical Note [facility] Freedom Meditech System Devyn Vásquez MD [address] [place] [address] [phone] Social History Tobacco Use Types Packs/Day Years [...] CARRILLO - [facility] [address] [facility] [address] [place] [phone] Brenda Clay MD [address] [facility] [place] [address] [place] [address] 04/15/2026 10:00 AM EDT Office Visit [facility]HA [facility] at [facility] [address] [facility] [address] [place] [address] Sena Dominguez PA [address] [facility] [place] [address] documented as of this encounter Visit Diagnoses Not on filedocumented in this encounter Care Teams Psychology Teacher Relationship Specialty Start Date End Date Meme Steel MD [address] [place] [address] 105 [place] [address] PCP - General Pediatrics 06/05/18 04/25/22 No Pcp, Pcp PCP - General 06/08/22 07/19/22 Guadalupe Mcbride MD PCP - General Family Medicine 07/20/22 11/01/23 Sena Dominguez PA [address] [place] [address] [place] [address] PCP - BRADY Physician Post Graduate Intern 11/02/23 Levy Barry MD [address] [place] [address] [place] [address] PCP - General Family Medicine 12/20/23 documented as of this encounter
--- OUTSIDE RECORDS SUMMARY | 2025-08-14 15:17 | XMS_ITS | Encounter Summary ---
Author Organization [facility] work ([facility]) Address [address] [place] [address] Care Team Providers Care Denture Packer Name Role Phone Meme Steel MD Primary Care Provider [phone] Pcp, Pcp Primary Care Provider Unavailabl Guadalupe Bardales MD Primary Care Provider [phone] Sena Dominguez Unavailable [phone] Levy Barry MD Primary Care Provider Unavailab le Source Comments The information that you have received may contain highly confidential and/or federally protected health information. This information has been disclosed to you from records protected by [facility]. The law prohibits you [...] please contact the sender immediately.[facility] ([facility]) Encounter Details Date Type Department Care Team (Late st Contact Info) Description 03/21/2016 Historical Note [facility] Speak With Me System Devyn Vásquez MD [address] [place] [address] [phone] Social History Tobacco Use Types Packs/Day Years [...] CARRILLO - [facility] [address] [facility] [address] [place] [phone] Brenda Clay MD [address] [facility] [address] [place] [address] 04/15/2026 10:00 AM EDT Office Visit LEATHA Primary [facility] at [facility] [address] [facility] [address] [place] [address] Sena Dominguez PA [address] [facility] [place] [address] documented as of this encounter Visit Diagnoses Not on filedocumented in this encounter Care Teams Denture Packer Relationship Specialty Start Date End Date Meme Steel MD [address] [place] [address] 105 [place] [address] PCP - General Pediatrics 06/05/18 04/25/22 No Pcp, Pcp PCP - General 06/08/22 07/19/22 Guadalupe Mcbride MD PCP - General Family Medicine 07/20/22 11/01/23 Sena Dominguez PA [address] [place] [address] [place] [address] PCP - BRADY Physician Catalyst Operator 11/02/23 Levy Barry MD [address] [place] [address] [place] [address] PCP - General Family Medicine 12/20/23 documented as of this encounter
--- OUTSIDE RECORDS SUMMARY | 2025-08-14 15:17 | XMS_ITS | Encounter Summary ---
Author Organization [facility] work ([facility]) Address [address] [place] [address] Care Team Providers Care Care Coordination Manager Name Role Phone Meme Steel MD Primary Care Provider [phone] Pcp, Pcp Primary Care Provider Unavailabl Guadalupe Bardales MD Primary Care Provider [phone] Sena Dominguez Unavailable [phone] Levy Barry MD Primary Care Provider Unavailab le Source Comments The information that you have received may contain highly confidential and/or federally protected health information. This information has been disclosed to you from records protected by [facility]. The law prohibits you [...] please contact the sender immediately.[facility] ([facility]) Encounter Details Date Type Department Care Team (Late st Contact Info) Description 05/18/2011 Historical Note [facility] [employer] System Devyn Vásquez MD [address] [place] [address] [phone] Social History Tobacco Use Types Packs/Day Years [...] AM EST Office Visit LEATHA ACRRILLO - [facility] [address] [facility] [address] [place] [phone] Brenda Clay MD [address] [facility] [address] [place] [address] 04/15/2026 10:00 AM EDT Office Visit [facility]HA [facility] [address] [facility] [address] [place] [address] Sena Dominguez PA [address] [facility] [place] [address] documented as of this encounter Visit Diagnoses Not on filedocumented in this encounter Care Teams Care Coordination Manager Relationship Specialty Start Date End Date Meme Steel MD [address] [place] [address] 105 [place] [address] PCP - General Pediatrics 06/05/18 04/25/22 No Pcp, Pcp PCP - General 06/08/22 07/19/22 Guadalupe Mcbride MD PCP - General Family Medicine 07/20/22 11/01/23 Sena Dominguez PA [address] [place] [address] [place] [address] PCP - BRADY Physician Hvac Installer 11/02/23 Levy Barry MD [address] [place] [address] [place] [address] PCP - General Family Medicine 12/20/23 documented as of this encounter
--- OUTSIDE RECORDS SUMMARY | 2025-08-14 15:17 | XMS_ITS | Encounter Summary ---
Author Organization [facility] work ([facility]) Address [address] [place] [address] Care Team Providers Care Improvement Spec Name Role Phone Meme Steel MD Primary Care Provider [phone] Pcp, Pcp Primary Care Provider Unavailabl Guadalupe Bardales MD Primary Care Provider [phone] Sena Dominguez Unavailable [phone] Levy Barry MD Primary Care Provider Unavailab le Source Comments The information that you have received may contain highly confidential and/or federally protected health information. This information has been disclosed to you from records protected by [facility]. The law prohibits you [...] sender immediately.[facility] ([facility]) Encounter Details Date Type Department Care Team (Late st Contact Info) Description 07/13/2016 Historical Note [facility] Hipcricket System Devyn Vásquez MD [address] [place] [address] [phone] Social History Tobacco Use Types Packs/Day Years [...] LEATHA CARRILLO - [facility] [address] [facility] [address] [place] [phone] Brenda Clay MD [address] [facility] [address] [place] [address] 04/15/2026 10:00 AM EDT Office Visit LEATHA [facility] at [facility] [address] [facility] [address] [place] [address] Sena Dominguez PA [address] [facility] [place] [address] documented as of this encounter Visit Diagnoses Not on filedocumented in this encounter Care Teams Improvement Spec Relationship Specialty Start Date End Date Meme Steel MD [address] [place] [address] 105 [place] [address] PCP - General Pediatrics 06/05/18 04/25/22 No Pcp, Pcp PCP - General 06/08/22 07/19/22 Guadalupe Mcbride MD PCP - General Family Medicine 07/20/22 11/01/23 Sena Dominguez PA [address] [place] [address] [place] [address] PCP - BRADY Physician Leather Production Machine Operator 11/02/23 Levy Barry MD [address] [place] [address] [place] [address] PCP - General Family Medicine 12/20/23 documented as of this encounter
--- OUTSIDE RECORDS SUMMARY | 2025-08-14 15:17 | XMS_ITS | Encounter Summary ---
Author Organization [facility] work ([facility]) Address [address] [facility] [place] [address] Care Team Providers Care Irish Moss Gatherer Name Role Phone Meme Steel MD Primary Care Provider [phone] Pcp, Pcp Primary Care Provider Unavailabl Guadalupe Bardales MD Primary Care Provider [phone] Sena Dominguez Unavailable [phone] Levy Barry MD Primary Care Provider Unavailab le Source Comments The information that you have received may contain highly confidential and/or federally protected health information. This information has been disclosed to you from records protected by [facility]. The law prohibits you [...] contact the sender immediately.[facility] ([facility]) Encounter Details Date Type Department Care Team (Late st Contact Info) Description 05/30/2005 Historical Note [facility] Redapt System Devyn Vásquez MD [address] [place] [address] [phone] Social History Tobacco Use Types Packs/Day Years [...] Visit LEATHA CARRILLO - [facility] [address] [facility] [address] [place] [phone] Brenda Clay MD [address] [facility] [address] [place] [address] 04/15/2026 10:00 AM EDT Office Visit LEATHA Primary [facility] at [facility] [address] [facility] [address] [place] [address] Sena Dominguez PA [address] [facility] [place] [address] documented as of this encounter Visit Diagnoses Not on filedocumented in this encounter Care Teams Irish Moss Gatherer Relationship Specialty Start Date End Date Meme Steel MD [address] [place] [address] [place] [address] PCP - General Pediatrics 06/05/18 04/25/22 No Pcp, Pcp PCP - General 06/08/22 07/19/22 Guadalupe Mcbride MD PCP - General Family Medicine 07/20/22 11/01/23 Sena Dominguez PA [address] [place] [address] [place] [address] PCP - BRADY Physician Principal Technical Writer 11/02/23 Levy Barry MD [address] [place] [address] [place] [address] PCP - General Family Medicine 12/20/23 documented as of this encounter
--- OUTSIDE RECORDS SUMMARY | 2025-08-14 15:17 | XMS_ITS | Encounter Summary ---
Author Organization [facility] work ([facility]) Address [address] [place] [address] Care Team Providers Care Cover Inspector Name Role Phone Meme Steel MD Primary Care Provider [phone] Pcp, Pcp Primary Care Provider Unavailabl Guadalupe Bardales MD Primary Care Provider [phone] Sena Dominguez Unavailable [phone] Levy Barry MD Primary Care Provider Unavailab le Source Comments The information that you have received may contain highly confidential and/or federally protected health information. This information has been disclosed to you from records protected by [employer] [facility]. The law prohibits you [...] the sender immediately.[facility] ([facility]) Encounter Details Date Type Department Care Team (Late st Contact Info) Description 03/29/2016 Historical Note [facility] AppNeta System Devyn Vásquez MD [address] [place] [address] [phone] Social History Tobacco Use Types Packs/Day Years [...] CARRILLO - [facility] [address] [facility] [address] [place] [phone] Brenda Clay MD [address] [facility] [address] [place] [address] 04/15/2026 10:00 AM EDT Office Visit LEATHA Primary [facility] at [facility] [address] [facility] [address] [place] [address] Sena Dominguez PA [address] [facility] [place] [address] documented as of this encounter Visit Diagnoses Not on filedocumented in this encounter Care Teams Cover Inspector Relationship Specialty Start Date End Date Meme Steel MD [address] [place] [address] 105 [place] [address] PCP - General Pediatrics 06/05/18 04/25/22 No Pcp, Pcp PCP - General 06/08/22 07/19/22 Guadalupe Mcbride MD PCP - General Family Medicine 07/20/22 11/01/23 Sena Dominguez PA [address] [place] [address] [place] [address] PCP - BRADY Physician Record Label Intern 11/02/23 Levy Baryr MD [address] [place] [address] [place] [address] PCP - General Family Medicine 12/20/23 documented as of this encounter
--- OUTSIDE RECORDS SUMMARY | 2025-08-14 15:17 | XMS_ITS | Encounter Summary ---
Author Organization [facility] work ([facility]) Address [address] [place] [address] Care Team Providers Care Head Of Human Resources Name Role Phone Meme Steel MD Primary Care Provider [phone] Pcp, Pcp Primary Care Provider Unavailabl Guadalupe Bardales MD Primary Care Provider [phone] Sena Dominguez Unavailable [phone] Levy Barry MD Primary Care Provider Unavailab le Source Comments The information that you have received may contain highly confidential and/or federally protected health information. This information has been disclosed to you from records protected by [facility]. The law [...] please contact the sender immediately.[facility] ([facility]) Encounter Details Date Type Department Care Team (Late st Contact Info) Description 06/14/2011 Historical Note [facility] Lootsie System Devyn Vásquez MD [address] [place] [address] [phone] Social History Tobacco Use Types Packs/Day Years [...] CARRILLO - [facility] [address] [facility] [address] [place] [phone] Brenda Clay MD [address] [facility] [address] [place] [phone] 04/15/2026 10:00 AM EDT Office Visit LEATHA Primary [facility] at [facility] [address] [facility] [address] [place] [address] Sena Dominguez PA [address] [facility] [place] [address] documented as of this encounter Visit Diagnoses Not on filedocumented in this encounter Care Teams Head Of Human Resources Relationship Specialty Start Date End Date Meme Steel MD [address] [place] [address] 105 [place] [address] PCP - General Pediatrics 06/05/18 04/25/22 No Pcp, Pcp PCP - General 06/08/22 07/19/22 Guadalupe Mcbride MD PCP - General Family Medicine 07/20/22 11/01/23 Sena Dominguez PA [address] [place] [address] [place] [address] PCP - BRADY Physician Voice Writing Reporter 11/02/23 Levy Barry MD [address] [place] [address] [place] [address] PCP - General Family Medicine 12/20/23 documented as of this encounter
--- OUTSIDE RECORDS SUMMARY | 2025-08-14 15:17 | XMS_ITS | Encounter Summary ---
Author Organization [facility] work ([facility]) Address [address] [place] [address] Care Team Providers Care Tactical Air Control Party Manager Name Role Phone Meme Steel MD Primary Care Provider [phone] Pcp, Pcp Primary Care Provider Unavailabl Guadalupe Bardales MD Primary Care Provider [phone] Sena Dominguez Unavailable [phone] Levy Barry MD Primary Care Provider Unavailab le Source Comments The information that you have received may contain highly confidential and/or federally protected health information. This information has been disclosed to you from records protected by [facility]. The law prohibits you [...] sender immediately.[facility] ([facility]) Encounter Details Date Type Department Care Team (Late st Contact Info) Description 02/16/2012 Historical Note [facility] Funanga System Devyn Vásquez MD [address] [place] [address] [phone] Social History Tobacco Use Types Packs/Day Years [...] - [facility] [address] [facility] [address] [place] [phone] Brenda Clay MD [address] [facility] [address] [place] [address] 04/15/2026 10:00 AM EDT Office Visit LEATHA Primary Care at [facility] + [facility] [address] [facility] [address] [place] [address] Sena Dominguez PA [address] [facility] [place] [address] documented as of this encounter Visit Diagnoses Not on filedocumented in this encounter Care Teams Tactical Air Control Party Manager Relationship Specialty Start Date End Date Meme Steel MD [address] [place] [address] 105 [place] [address] PCP - General Pediatrics 06/05/18 04/25/22 No Pcp, Pcp PCP - General 06/08/22 07/19/22 Guadalupe Mcbride MD PCP - General Family Medicine 07/20/22 11/01/23 Sena Dominguez PA [address] [place] [address] [place] [address] PCP - BRADY Physician Plumbing Inspector 11/02/23 Levy Barry MD [address] [place] [address] [place] [address] PCP - General Family Medicine 12/20/23 documented as of this encounter
--- OUTSIDE RECORDS SUMMARY | 2025-08-14 15:17 | XMS_ITS | Encounter Summary ---
Author Organization [facility] work ([facility]) Address [address] [place] [address] Care Team Providers Care Quad Stayer Name Role Phone Meme Steel MD Primary Care Provider [phone] No Pcp, Pcp Primary Care Provider Unavailabl Guadalupe Bardales MD Primary Care Provider [phone] Sena Dominguez Unavailable [phone] Levy Barry MD Primary Care Provider Unavailab le Source Comments The information that you have received may contain highly confidential and/or federally protected health information. This information has been disclosed to you from records protected by [facility]. The law prohibits [...] the sender immediately.[facility] ([facility]) Encounter Details Date Type Department Care Team (Late st Contact Info) Description 06/02/2005 Historical Note [facility] Snappy shuttle System Devyn Vásquez MD [address] [place] [address] [phone] Social History Tobacco Use Types Packs/Day Years [...] CARRILLO - [facility] [address] [facility] [address] [place] [phone] Brenda Clay MD [address] [facility] [address] [place] [address] 04/15/2026 10:00 AM EDT Office Visit LEATHA Primary [facility] at [facility] [address] [facility] [address] [place] [address] Sena Dominguez PA [address] [facility] [place] [address] documented as of this encounter Visit Diagnoses Not on filedocumented in this encounter Care Teams Quad Stayer Relationship Specialty Start Date End Date Meme Steel MD [address] [place] [address] 105 [place] [address] PCP - General Pediatrics 06/05/18 04/25/22 No Pcp, Pcp PCP - General 06/08/22 07/19/22 Guadalupe Mcbride MD PCP - General Family Medicine 07/20/22 11/01/23 Sena Dominguez PA [address] [place] [address] [place] [address] PCP - BRADY Physician County Coroner 11/02/23 Levy Barry MD [address] [place] [address] [place] [address] PCP - General Family Medicine 12/20/23 documented as of this encounter
--- OUTSIDE RECORDS SUMMARY | 2025-08-14 15:17 | XMS_ITS | Encounter Summary ---
Author Organization [facility] work ([facility]) Address [address] [place] [address] Care Team Providers Care Piling Setter Name Role Phone Meme Steel MD Primary Care Provider [phone] Pcp, Pcp Primary Care Provider Unavailabl Guadalupe Bardales MD Primary Care Provider [phone] Sena Dominguez Unavailable [phone] Levy Barry MD Primary Care Provider Unavailab le Source Comments The information that you have received may contain highly confidential and/or federally protected health information. This information has been disclosed to you from records protected by [facility]. The law prohibits you from [...] contact the sender immediately.[facility] ([facility]) Encounter Details Date Type Department Care Team (Late st Contact Info) Description 08/13/2009 Historical Note [facility] First Aid Shot Therapy System Devyn Vásquez MD [address] [place] [address] [phone] Social History Tobacco Use Types Packs/Day Years [...] Visit LEATHA CARRILLO - [facility] [address] [facility] [address] [place] [phone] Brenda Clay MD [address] [facility] [address] [place] [address] 04/15/2026 10:00 AM EDT Office Visit LEATHA Primary [facility] at [facility] + [facility] [address] [facility] [address] [place] [address] Sena Dominguez PA [address] [facility] [place] [address] documented as of this encounter Visit Diagnoses Not on filedocumented in this encounter Care Teams Piling Setter Relationship Specialty Start Date End Date Meme Steel MD [address] [place] [address] 105 [place] [address] PCP - General Pediatrics 06/05/18 04/25/22 No Pcp, Pcp PCP - General 06/08/22 07/19/22 Guadalupe Mcbride MD PCP - General Family Medicine 07/20/22 11/01/23 Sena Dominguez PA [address] [place] [address] [place] [address] PCP - BRADY Physician Supplier Manager 11/02/23 Levy Barry MD [address] [place] [address] [place] [address] PCP - General Family Medicine 12/20/23 documented as of this encounter
--- OUTSIDE RECORDS SUMMARY | 2025-08-14 15:17 | XMS_ITS | Encounter Summary ---
Author Organization [facility] work ([facility]) Address [address] [place] [address] Care Team Providers Care Internal Controls Analyst Name Role Phone Meme Steel MD Primary Care Provider [phone] No Pcp, Pcp Primary Care Provider Unavailabl Guadalupe Bardales MD Primary Care Provider [phone] Sena Dominguez Unavailable [phone] Levy Barry MD Primary Care Provider Unavailab le Source Comments The information that you have received may contain highly confidential and/or federally protected health information. This information has been disclosed to you from records protected by [facility]. The law prohibits [...] please contact the sender immediately.[facility] ([facility]) Encounter Details Date Type Department Care Team (Late st Contact Info) Description 09/22/2011 Historical Note [facility] Fiestah System Devyn Vásquez MD [address] [place] [address] [phone] Social History Tobacco Use Types Packs/Day Years [...] Visit LEATHA CARRILLO - [facility] [address] [facility] [address] [place] [phone] Brenda Clay MD [address] [facility] [address] [place] [phone] 04/15/2026 10:00 AM EDT Office Visit LEATHA [facility] at [facility] + [facility] [address] [facility] [address] [place] [address] Sena Dominguez PA [address] [facility] [place] [address] documented as of this encounter Visit Diagnoses Not on filedocumented in this encounter Care Teams Internal Controls Analyst Relationship Specialty Start Date End Date Meme Steel MD [address] [place] [address] 105 [place] [address] PCP - General Pediatrics 06/05/18 04/25/22 No Pcp, Pcp PCP - General 06/08/22 07/19/22 Guadalupe Mcbride MD PCP - General Family Medicine 07/20/22 11/01/23 Sena Dominguez PA [address] [place] [address] [place] [address] PCP - BRADY Physician Tubing Drier 11/02/23 Levy Barry MD [address] [place] [address] [place] [address] PCP - General Family Medicine 12/20/23 documented as of this encounter
--- OUTSIDE RECORDS SUMMARY | 2025-08-14 15:17 | XMS_ITS | Encounter Summary ---
Author Organization [facility] work ([facility]) Address [address] [place] [address] Care Team Providers Care Lithographers Printer Name Role Phone Meme Steel MD Primary Care Provider No Pcp, Pcp Primary Care Provider Unavailabl Guadalupe Bardales MD Primary Care Provider [phone] Sena Dominguez Unavailable [phone] Levy Barry MD Primary Care Provider Unavailab le Source Comments The information that you have received may contain highly confidential and/or federally protected health information. This information has been disclosed to you from records protected by [facility]. The law prohibits you from [...] contact the sender immediately.[facility] ([facility]) Encounter Details Date Type Department Care Team (Late st Contact Info) Description 05/18/2011 Historical Note [facility] Zorap System Devyn Vásquez MD [address] [place] [address] [phone] Social History Tobacco Use Types Packs/Day Years [...] Visit LEATHA CARRILLO - [facility] [address] [facility] [address] [place] [phone] Brenda Clay MD [address] [facility] [address] [place] [address] 04/15/2026 10:00 AM EDT Office Visit [facility]HA [facility] at [facility] [address] [facility] [address] [place] [address] Sena Dominguez PA [address] [facility] [place] [address] documented as of this encounter Visit Diagnoses Not on filedocumented in this encounter Care Teams Lithographers Printer Relationship Specialty Start Date End Date eMme Steel MD [address] [place] [address] 105 [place] [address] PCP - General Pediatrics 06/05/18 04/25/22 No Pcp, Pcp PCP - General 06/08/22 07/19/22 Guadalupe Mcbride MD PCP - General Family Medicine 07/20/22 11/01/23 Sena Dominguez PA [address] [place] [address] [place] [address] PCP - BRADY Physician Health Psychologist 11/02/23 Levy Barry MD [address] [place] [address] [place] [address] PCP - General Family Medicine 12/20/23 documented as of this encounter
--- OUTSIDE RECORDS SUMMARY | 2025-08-14 15:18 | XMS_ITS | Continuity of Care Document ---
Author Organization [facility] Address [address] [place] [address] Phone [phone] Care Team Providers Care Meeting Specialist Name Role Phone Guadalupe Mcbride MD Care Team Information Receiv er Unavailable ANA ROSA RAMOS M.D. Care Team Information Receiv er Unavailable Guadalupe Mcbride MD Primary Care Physician Unava ilable Allergies and adverse reactions Description No Known Drug Allergies Medications Active Medications SIG Qnty Indications Ordering Provider Date Tlrfiiiya29ihj Tablets 1 by mouth every day 90tabs Ana Rosa Ramos M.D. 05/28/2024 OCP Unknown Barb Fvccxsl93ya Tablets Unknown Propranolol ARM64ka Tablets Unknown Wipzdzdyl0hz Tablets Unknown Vitamin D-325mcg (1000 Ut) Capsules Unknown Fluoxetine TYO55jr Capsules Unknown History Medications Wegovy0.25mg/0.5ML Solution Auto-Inject inject 0.25 mg weekly x 4 weeks 2ml Ana Rosa Ramos M.D. 03/25/2024 - 06/26/2024 Sertraline MAX216fv Tablets Un known - 06/26/2024 Results Test Acquired Date Facility Test Result H/L Range Note TSH 07/05/2025 [facility] (Use [facility]) [address] [facility] [place] [address] TSH 1.87 mIU/L Normal 1 T4, Free 07/05/2025 [facility] ([facility]) [address] [place] [address] T4, Free 1.3 ng/dL Normal 0.8-1.8 Vitamin D,25-Oh,Total,Ia 07/05/2025 [facility] (Use [facility] Other [facility]) [address] [place] [address] Vitamin D,25-Oh,Total,Ia 29 ng/mL Low 30-100 2 Enhanced PDF Report [id number] 07/05/2025 [facility] (Use [facility] Other [facility]) [address] [place] [address] [phone] Enhanced PDF Report [id number] PDF IMAGE OFF C-Peptide 04/03/2024 [facility] (Use [facility] Other [facility]) [address] [place] [address] [phone] C-Peptide 1.72 ng/mL Normal 0.80-3.8 5 3 Insulin 04/03/2024 [facility] (Use [facility] Other [facility]) 152[place] [address] Insulin 10.9 uIU/mL Normal 4 Basic Metabolic Panel 04/03/2024 [facility] (Use [facility] Other [facility]) [address] [address] Glucose 82 mg/dL Normal 65-99 5 Urea [...] [facility] Other [facility]) [address] [place] [id number] TSH 4.14 mIU/L Normal 7 T4, Free 04/03/2024 [facility] (Use [facility] Other Sites) [address] [place] [address] T4, Free 1.1 ng/dL Normal 0.8-1.4 Thyroid Peroxidase And Thyroglobulin Abs 04/03/2024 [facility] (Use [facility] Other [facility]) [address] [place] [address] Thyroglobulin Antibodies 1 IU/mL Normal < or = 1 Thyroid Peroxidase Antibodies 61 IU/mL High <9 Tsi (Thyroid Stimulating Immunoglobulin) 04/03/2024 [facility] (Use [facility] Other Sites) [address] [place] [id number] Tsi (Thyroid Stimulating Immunoglobulin) <89 %baseline <140 8 PTH Intact And Calcium 04/03/2024 [facility] (Use [facility] Other Sites) [address] [place] [address] Parathyroid Hormone, Intact 68 pg/mL Normal 16-77 9 Calcium 9.1 mg/dL Normal 8.9-10.4 Vitamin D,25-Oh,Total,Ia 04/03/2024 [facility] (Use [facility] Other Sites) [address] [place] [address] Vitamin D,25-Oh,Total,Ia 39 ng/mL Normal 30-100 10 Albumin 04/03/2024 [facility] (Use [facility] Other [facility]) [address] [place] [id number] [phone] Albumin 4.0 g/dL Normal 3.6-5.1 Clinical PDF Report [id number] 04/03/2024 [facility] (Use [facility] Other Sites) [address] [place] 2596187 Clinical PDF Report [id number] PDF IMAGE OFF Enhanced PDF Report [id number] 04/03/2024 [facility] (Use [facility] Other Sites) [address] [place] [address] [phone] Enhanced PDF Report [id number] PDF IMAGE OFF 1 Reference Range > [...] D2 and D3 fractions is required, the QuestSeeqpodureD(TM) 25-OH VIT D, (D2,D3), LC/MS/MS is recommended: order code 72764 (patients >2yrs). See Note 1 Note 1 For additional information, please refer to http://education.BLUEPHOENIX/faq/PLF197 (This link is being provided for informational/ educational purposes only.) 3 FASTING:YES FASTING: YES 4 Reference Range < or = 18.4 Risk: Optimal < or = 18.4 Moderate NA High >18.4 Adult cardiovascular event risk category cut points (optimal, moderate, high) are based on Insulin Reference Interval studies performed at [facility] in 2021. 5 Fasting reference in terval [...] of this assay have been determined by [facility], [place], [place]. The modifications have not been cleared [...] D, (D2,D3), LC/MS/MS is recommended: order code 36641 (patients >2yrs). See Note 1 Note 1 For additional information, please refer to http://education.Real Time Genomics.Jamn/faq/VLU343 (This link is being provided for informational/ [...] 11:20 am - Courtney Trejo PA-C at [facility] 12/04/2024 - Courtney Trejo PA-C* E06.3 [...]
--- OUTSIDE RECORDS SUMMARY | 2025-08-14 15:18 | XMS_ITS | Encounter Summary ---
Author Organization [facility] work ([facility]) Address [address] [place] [address] Care Team Providers Care Beaver Trapper Name Role Phone Meme Steel MD Primary Care Provider [phone] No Pcp, Pcp Primary Care Provider Unavailabl Guadalupe Bardales MD Primary Care Provider Sena Dominguez Unavailable [phone] Levy Barry MD Primary Care Provider Unavailab le Source Comments The information that you have received may contain highly confidential and/or federally protected health information. This information has been disclosed to you from records protected by [facility]. The law prohibits you [...] please contact the sender immediately.[facility] ([facility]) Encounter Details Date Type Department Care Team (Late st Contact Info) Description 10/27/2016 Historical Note [facility] Sanovation System Devyn Vásquez MD [address] [place] [address] [phone] Social History Tobacco Use Types Packs/Day Years [...] LEATHA CARRILLO - [facility] [address] [facility] [address] [place] [phone] Brenda Clay MD [address] [facility] [address] [place] [address] 04/15/2026 10:00 AM EDT Office Visit [facility]HA [facility] at [facility] + [facility] [address] [facility] [address] [place] [address] Sena Dominguez PA [address] [facility] [place] [address] documented as of this encounter Visit Diagnoses Not on filedocumented in this encounter Care Teams Beaver Trapper Relationship Specialty Start Date End Date Meme Steel MD [address] [place] [address] 105 [place] [address] PCP - General Pediatrics 06/05/18 04/25/22 No Pcp, Pcp PCP - General 06/08/22 07/19/22 Guadalupe Mcbride MD PCP - General Family Medicine 07/20/22 11/01/23 Sena Dominguez PA [address] [place] [address] [place] [address] PCP - BRADY Physician Record Changer 11/02/23 Levy Barry MD [address] [place] [address] [place] [address] PCP - General Family Medicine 12/20/23 documented as of this encounter
--- OUTSIDE RECORDS SUMMARY | 2025-08-14 15:18 | XMS_ITS | Encounter Summary ---
Author Organization [facility] work ([facility]) Address [address] [place] [address] Care Team Providers Care Kerrick Kleaner Operator Name Role Phone Meme Steel MD Primary Care Provider [phone] No Pcp, Pcp Primary Care Provider Unavailabl Guadalupe Bardales MD Primary Care Provider [phone] Sena Dominguez Unavailable [phone] Levy Barry MD Primary Care Provider Unavailab le Source Comments The information that you have received may contain highly confidential and/or federally protected health information. This information has been disclosed to you from records protected by [facility]. The law prohibits you from [...] please contact the sender immediately.[facility] ([facility]) Encounter Details Date Type Department Care Team (Late st Contact Info) Description 08/30/2005 Historical Note [facility] Betaspring System Devyn Vásquez MD [address] [place] [address] [phone] Social History Tobacco Use Types Packs/Day Years [...] CARRILLO - [facility] at [facility] [address] [facility] [address] [place] [phone] Brenda Clay MD [address] [facility] [address] [place] [address] 04/15/2026 10:00 AM EDT Office Visit LEATHA [facility] at [facility] + [facility] [address] [facility] [address] [place] [address] Sena Dominguez PA [address] [facility] [place] [address] documented as of this encounter Visit Diagnoses Not on filedocumented in this encounter Care Teams Kerrick Kleaner Operator Relationship Specialty Start Date End Date Meme Steel MD [address] [place] [address] 105 [place] [address] PCP - General Pediatrics 06/05/18 04/25/22 No Pcp, Pcp PCP - General 06/08/22 07/19/22 Guadalupe Mcbride MD PCP - General Family Medicine 07/20/22 11/01/23 Sena Dominguez PA [address] [place] [address] [place] [address] PCP - BRADY Physician Airline Stewardess 11/02/23 Levy Barry MD [address] [place] [address] [place] [address] PCP - General Family Medicine 12/20/23 documented as of this encounter
--- OUTSIDE RECORDS SUMMARY | 2025-08-14 15:18 | XMS_ITS | Encounter Summary ---
Author Organization [facility] work ([facility]) Address [address] [facility] [address] [facility] [address] [place] [address] Care Team Providers Care Wooden Boat Builder Name Role Phone Meme Steel MD Primary Care Provider No Pcp, Pcp Primary Care Provider Unavailabl Guadalupe Bardales MD Primary Care Provider [phone] Sena Dominguez Unavailable [phone] Levy Barry MD Primary Care Provider Unavailab le Source Comments The information that you have received may contain highly confidential and/or federally protected health information. This information has been disclosed to you from records protected by [facility]. The law prohibits you from [...] please contact the sender immediately.[facility] ([facility]) Encounter Details Date Type Department Care Team (Late st Contact Info) Description 06/30/2005 Historical Note [facility] Despegar.com System Devyn Vásquez MD [address] [place] [address] [phone] Social History Tobacco Use Types Packs/Day Years [...] Visit LEATHA CARRILLO - [facility] [address] [facility] [address] [place] [phone] Brenda Clay MD [address] [facility] [address] [place] [phone] 04/15/2026 10:00 AM EDT Office Visit LEATHA Primary [facility] at [facility] + [facility] [address] [facility] [address] [place] [address] Sena Dominguez PA [address] [facility] [place] [address] documented as of this encounter Visit Diagnoses Not on filedocumented in this encounter Care Teams Wooden Boat Builder Relationship Specialty Start Date End Date Meme Steel MD [address] [place] [address] 105 [place] [address] PCP - General Pediatrics 06/05/18 04/25/22 No Pcp, Pcp PCP - General 06/08/22 07/19/22 Guadalupe Mcbride MD PCP - General Family Medicine 07/20/22 11/01/23 Sena Dominguez PA [address] [place] [address] [place] [address] PCP - BRADY Physician Community Living Coach 11/02/23 Levy Barry MD [address] [place] [address] [place] [address] PCP - General Family Medicine 12/20/23 documented as of this encounter
--- OUTSIDE RECORDS SUMMARY | 2025-08-14 15:18 | XMS_ITS | Encounter Summary ---
Author Organization [facility] work ([facility]) Address [address] [place] [address] Care Team Providers Care Fine Grader Name Role Phone Meme Steel MD Primary Care Provider No Pcp, Pcp Primary Care Provider Unavailabl Guadalupe Bardales MD Primary Care Provider [phone] Sena Dominguez Unavailable [phone] Levy Barry MD Primary Care Provider Unavailab le Source Comments The information that you have received may contain highly confidential and/or federally protected health information. This information has been disclosed to you from records protected by [facility]. The law prohibits you from [...] sender immediately.[facility] ([facility]) Encounter Details Date Type Department Care Team (Late st Contact Info) Description 09/28/2005 Historical Note [facility] AGlobal Tech System Devyn Vásquez MD [address] [place] [address] [phone] Social History Tobacco Use Types Packs/Day Years [...] [facility] [address] [facility] [address] [place] [phone] Brenda Clay MD [address] [facility] [address] [place] [address] 04/15/2026 10:00 AM EDT Office Visit LEATHA Primary [facility] at [facility] + [facility] [address] [facility] [address] [place] [address] Sena Dominguez PA [address] [facility] [place] [address] documented as of this encounter Visit Diagnoses Not on filedocumented in this encounter Care Teams Fine Grader Relationship Specialty Start Date End Date Meme Steel MD [address] [place] [address] 105 [place] [address] PCP - General Pediatrics 06/05/18 04/25/22 No Pcp, Pcp PCP - General 06/08/22 07/19/22 Guadalupe Mcbride MD PCP - General Family Medicine 07/20/22 11/01/23 Sena Dominguez PA [address] [place] [address] [place] [address] PCP - BRADY Physician Manager Agency 11/02/23 Levy Barry MD [address] [place] [address] [place] [address] PCP - General Family Medicine 12/20/23 documented as of this encounter
--- OUTSIDE RECORDS SUMMARY | 2025-08-14 15:18 | XMS_ITS | Encounter Summary ---
Author Organization [facility] work ([facility]) Address [address] [place] [address] Care Team Providers Care Otorhinolaryngologist Name Role Phone Meme Steel MD Primary Care Provider [phone] No Pcp, Pcp Primary Care Provider Unavailabl Guadalupe Bardales MD Primary Care Provider [phone] Sena Dominguez Unavailable [phone] Levy Barry MD Primary Care Provider Unavailab le Source Comments The information that you have received may contain highly confidential and/or federally protected health information. This information has been disclosed to you from records protected by [facility]. The law prohibits you [...] the sender immediately.[facility] ([facility]) Encounter Details Date Type Department Care Team (Late st Contact Info) Description 06/30/2005 Historical Note [facility] Devyn Vásquez MD [address] [place] [address] [phone] Social History Tobacco Use Types Packs/Day [...] LEATHA CARRILLO - [facility] [address] [facility] [address] [place] [phone] Brenda Clay MD [address] [facility] [address] [place] [phone] 04/15/2026 10:00 AM EDT Office Visit LEATHA Primary [facility] at [facility] + [facility] [address] [facility] [address] [place] [address] Sena Dominguez PA [address] [facility] [place] [address] documented as of this encounter Visit Diagnoses Not on filedocumented in this encounter Care Teams Otorhinolaryngologist Relationship Specialty Start Date End Date Meme Steel MD [address] [place] [address] 105 [place] [address] PCP - General Pediatrics 06/05/18 04/25/22 No Pcp, Pcp PCP - General 06/08/22 07/19/22 Guadalupe Mcbride MD PCP - General Family Medicine 07/20/22 11/01/23 Sena Dominguez PA [address] [place] [address] [place] [address] PCP - BRADY Physician Disability Insurance Hearing Officer 11/02/23 Levy Barry MD [address] [place] [address] [place] [address] PCP - General Family Medicine 12/20/23 documented as of this encounter
--- OUTSIDE RECORDS SUMMARY | 2025-08-14 15:18 | XMS_ITS | Encounter Summary ---
Author Organization [facility] work ([facility]) Address [address] [facility] [address] [address] [place] [address] Care Team Providers Care Cannon Fire Direction Specialist Name Role Phone Meme Steel MD Primary Care Provider No Pcp, Pcp Primary Care Provider Unavailabl Guadalupe Bardales MD Primary Care Provider [phone] Sena Dominguez Unavailable Levy Barry MD Primary Care Provider Unavailab le Source Comments The information that you have received may contain highly confidential and/or federally protected health information. This information has been disclosed to you from records protected by [facility]. The law prohibits you [...] error, please contact the sender immediately.[facility] ([facility]) Encounter Details Date Type Department Care Team (Late st Contact Info) Description 10/27/2016 Historical Note [facility] Remember The Member System Devyn Vásquez MD [address] [place] [address] [phone] Social History Tobacco Use Types Packs/Day Years [...] [facility] [address] [facility] [address] [place] [phone] Brenda Clay MD [address] [facility] [address] [place] [address] 04/15/2026 10:00 AM EDT Office Visit LE[facility]HA [facility] at [facility] + [facility] [address] [facility] [address] [place] [address] Sena Dominguez PA [address] [facility] [place] [address] documented as of this encounter Visit Diagnoses Not on filedocumented in this encounter Care Teams Cannon Fire Direction Specialist Relationship Specialty Start Date End Date Meme Steel MD [address] [place] [address] 105 [place] [address] PCP - General Pediatrics 06/05/18 04/25/22 No Pcp, Pcp PCP - General 06/08/22 07/19/22 Guadalupe Mcbride MD PCP - General Family Medicine 07/20/22 11/01/23 Sena Dominguez PA [address] [place] [address] [place] [address] PCP - BRADY Physician Paper Goods Machine Operator 11/02/23 Levy Barry MD [address] [place] [address] [place] [address] PCP - General Family Medicine 12/20/23 documented as of this encounter
--- OUTSIDE RECORDS SUMMARY | 2025-08-14 15:18 | XMS_ITS | Encounter Summary ---
Author Organization [facility] work ([facility]) Address [address] [place] [address] Care Team Providers Care Hair Cutter Name Role Phone Meme Steel MD Primary Care Provider [phone] Pcp, Pcp Primary Care Provider Unavailabl Guadalupe Bardales MD Primary Care Provider [phone] Sena Dominguez Unavailable [phone] Levy Barry MD Primary Care Provider Unavailab le Source Comments The information that you have received may contain highly confidential and/or federally protected health information. This information has been disclosed to you from records protected by [facility]. The law prohibits you from [...] immediately.[facility] ([facility]) Encounter Details Date Type Department Care Team (Late st Contact Info) Description 04/08/2009 Historical Note [facility] Devyn Vásquez MD [address] [place] [address] [phone] Social History Tobacco Use Types Packs/Day Years [...] - [facility] [address] [facility] [address] [place] [phone] Brenda Clay MD [address] [facility] [address] [place] [address] 04/15/2026 10:00 AM EDT Office Visit [facility] + [facility] [address] [facility] [address] [place] [address] Sena Dominguez PA [address] [facility] [place] [address] documented as of this encounter Visit Diagnoses Not on filedocumented in this encounter Care Teams Hair Cutter Relationship Specialty Start Date End Date Meme Steel MD [address] [place] [address] [place] [address] PCP - General Pediatrics 06/05/18 04/25/22 No Pcp, Pcp PCP - General 06/08/22 07/19/22 Guadalupe Mcbride MD PCP - General Family Medicine 07/20/22 11/01/23 Sena Dominguez PA [address] [place] [address] [place] [address] PCP - BRADY Physician Orthotist 11/02/23 Levy Barry MD [address] [place] [address] [place] [address] PCP - General Family Medicine 12/20/23 documented as of this encounter
--- OUTSIDE RECORDS SUMMARY | 2025-08-14 15:18 | XMS_ITS | Encounter Summary ---
Author Organization [facility] work ([facility]) Address [address] [place] [address] Care Team Providers Care Supervisor Pipe Manufacture Name Role Phone Meme Steel MD Primary Care Provider [phone] Pcp, Pcp Primary Care Provider Unavailabl Guadalupe Bardales MD Primary Care Provider [phone] Sena Dominguez Unavailable [phone] Levy Barry MD Primary Care Provider Unavailab le Source Comments The information that you have received may contain highly confidential and/or federally protected health information. This information has been disclosed to you from records protected by [facility]. The law prohibits you [...] please contact the sender immediately.[facility] ([facility]) Encounter Details Date Type Department Care Team (Late st Contact Info) Description 09/01/2016 Historical Note [facility] [employer] [facility] Devyn Vásquez MD [address] [place] [address] [phone] Social History Tobacco Use Types Packs/Day Years [...] LEATHA CARRILLO - [facility] [address] [facility] [address] [place] [phone] Brenda Clay MD [address] [facility] [address] [place] [address] 04/15/2026 10:00 AM EDT Office Visit [facility] at [facility] + [facility] [address] [facility] [address] [place] [address] Sena Dominguez PA [address] [facility] [place] [address] documented as of this encounter Visit Diagnoses Not on filedocumented in this encounter Care Teams Supervisor Pipe Manufacture Relationship Specialty Start Date End Date Meme Steel MD [address] [place] [address] 105 [place] [address] PCP - General Pediatrics 06/05/18 04/25/22 No Pcp, Pcp PCP - General 06/08/22 07/19/22 Guadalupe Mcbride MD PCP - General Family Medicine 07/20/22 11/01/23 Sena Dominguez PA [address] [place] [address] [place] [address] PCP - BRADY Physician Cordwainer 11/02/23 Levy Barry MD [address] [place] [address] [place] [address] PCP - General Family Medicine 12/20/23 documented as of this encounter
--- OUTSIDE RECORDS SUMMARY | 2025-08-14 15:18 | XMS_ITS | Encounter Summary ---
Author Organization [facility] work ([facility]) Address [address] [place] [address] Care Team Providers Care Coffee Break Attendant Name Role Phone Meme Steel MD Primary Care Provider [phone] Pcp, Pcp Primary Care Provider Unavailabl uGadalupe Bardales MD Primary Care Provider Sena Dominguez Unavailable [phone] Levy Barry MD Primary Care Provider Unavailab le Source Comments The information that you have received may contain highly confidential and/or federally protected health information. This information has been disclosed to you from records protected by [facility]. The [...] Contact Info) Description 02/06/2010 Historical Note [facility] [employer] [facility] Devyn Vásquez MD [address] [place] [address] [phone] Social History Tobacco Use Types Packs/Day Years [...] LEATHA CARRILLO - [facility] [address] [facility] [address] [place] [phone] Brenda Clay MD [address] [facility] [address] [place] [address] 04/15/2026 10:00 AM EDT Office Visit [facility] at [facility] + [facility] [address] [facility] [address] [place] [address] Sena Dominguez PA [address] [facility] [place] [address] documented as of this encounter Visit Diagnoses Not on filedocumented in this encounter Care Teams Coffee Break Attendant Relationship Specialty Start Date End Date Meme Steel MD [address] [place] [address] 105 [place] [address] PCP - General Pediatrics 06/05/18 04/25/22 No Pcp, Pcp PCP - General 06/08/22 07/19/22 Guadalupe Mcbride MD PCP - General Family Medicine 07/20/22 11/01/23 Sena Dominguez PA [address] [place] [address] [place] [address] PCP - BRADY Physician City Planning Teacher 11/02/23 Levy Barry MD [address] [place] [address] [place] [address] PCP - General Family Medicine 12/20/23 documented as of this encounter
--- OUTSIDE RECORDS SUMMARY | 2025-08-14 15:18 | XMS_ITS | Encounter Summary ---
Author Organization [facility] work ([facility]) Address [address] [facility] [address] [address] [place] [address] Care Team Providers Care Catalog Specialist Name Role Phone Meme Steel MD Primary Care Provider [phone] Pcp, Pcp Primary Care Provider Unavailabl Guadalupe Bardales MD Primary Care Provider [phone] Sena Dominguez Unavailable [phone] Levy Barry MD Primary Care Provider Unavailab le Source Comments The information that you have received may contain highly confidential and/or federally protected health information. This information has been disclosed to you from records protected by [facility]. The law prohibits [...] sender immediately.[facility] ([facility]) Encounter Details Date Type Department Care Team (Late st Contact Info) Description 08/30/2005 Historical Note [facility] [employer] [facility] Devyn Vásquez MD [address] [place] [address] [phone] Social History Tobacco Use Types Packs/Day Years [...] LEATHA CARRILLO - [facility] [address] [facility] [address] [place] [phone] Brenda Clay MD [address] [facility] [address] [place] [address] 04/15/2026 10:00 AM EDT Office Visit [facility]HA [facility] at [facility] + [facility] [address] [facility] [address] [place] [address] Sena Dominguez PA [address] [facility] [place] [address] documented as of this encounter Visit Diagnoses Not on filedocumented in this encounter Care Teams Catalog Specialist Relationship Specialty Start Date End Date Meme Steel MD [address] [place] [address] 105 [place] [address] PCP - General Pediatrics 06/05/18 04/25/22 No Pcp, Pcp PCP - General 06/08/22 07/19/22 Guadalupe Mcbride MD PCP - General Family Medicine 07/20/22 11/01/23 Sena Dominguez PA [address] [place] [address] [place] [address] PCP - BRADY Physician Bench Grinder 11/02/23 Levy Barry MD [address] [place] [address] [place] [address] PCP - General Family Medicine 12/20/23 documented as of this encounter
--- OUTSIDE RECORDS SUMMARY | 2025-08-14 15:18 | XMS_ITS | Encounter Summary ---
Author Organization [facility] work ([facility]) Address [address] [address] [place] [address] Care Team Providers Care Certified Histologic Technician Name Role Phone Meme Steel MD Primary Care Provider [phone] No Pcp, Pcp Primary Care Provider Unavailabl Guadalupe Bardales MD Primary Care Provider [phone] Sena Dominguez Unavailable Levy Barry MD Primary Care Provider Unavailab le Source Comments The information that you have received may contain highly confidential and/or federally protected health information. This information has been disclosed to you from records protected by [facility]. The law prohibits you from [...] Contact Info) Description 02/06/2010 Historical Note [facility] [employer] [facility] Devyn Vásquez MD [address] [place] [address] [phone] Social History Tobacco Use Types Packs/Day Years [...] LEATHA CARRILLO - [facility] [address] [facility] [address] [place] [phone] Brenda Clay MD [address] [facility] [address] [place] [address] 04/15/2026 10:00 AM EDT Office Visit [facility]HA Primary [facility] at [facility] + [facility] [address] [facility] [address] [place] [address] Sena Dominguez PA [address] [facility] [place] [address] documented as of this encounter Visit Diagnoses Not on filedocumented in this encounter Care Teams Certified Histologic Technician Relationship Specialty Start Date End Date Meme Steel MD [address] [place] [address] 105 [place] [address] PCP - General Pediatrics 06/05/18 04/25/22 No Pcp, Pcp PCP - General 06/08/22 07/19/22 Guadalupe Mcbride MD PCP - General Family Medicine 07/20/22 11/01/23 Sena Dominguez PA [address] [place] [address] [place] [address] PCP - BRADY Physician Conveyor Maintenance Mechanic 11/02/23 Levy Barry MD [address] [place] [address] [place] [address] PCP - General Family Medicine 12/20/23 documented as of this encounter
--- OUTSIDE RECORDS SUMMARY | 2025-08-14 15:18 | XMS_ITS | Encounter Summary ---
Author Organization [facility] work ([facility]) Address [address] [place] [address] Care Team Providers Care Infrastructure Director Name Role Phone Meme Steel MD Primary Care Provider [phone] No Pcp, Pcp Primary Care Provider Unavailabl Guadalupe Bardales MD Primary Care Provider [phone] Sena Dominguez Unavailable [phone] Levy Barry MD Primary Care Provider Unavailab le Source Comments The information that you have received may contain highly confidential and/or federally protected health information. This information has been disclosed to you from records protected by [facility]. The law prohibits you [...] contact the sender immediately.[facility] ([facility]) Encounter Details Date Type Department Care Team (Late st Contact Info) Description 08/07/2009 Historical Note [facility] [employer] [facility] Devyn Vásquez MD [address] [place] [address] [phone] Social History Tobacco Use Types Packs/Day Years [...] at [facility] [address] [facility] [address] [place] [phone] Brenda Clay MD [address] [facility] [address] [place] [address] 04/15/2026 10:00 AM EDT Office Visit [facility]HA [facility] at [facility] + [facility] [address] [facility] [address] [place] [address] Sena Dominguez PA [address] [facility] [place] [address] documented as of this encounter Visit Diagnoses Not on filedocumented in this encounter Care Teams Infrastructure Director Relationship Specialty Start Date End Date Meme Steel MD [address] [place] [address] 105 [place] [address] PCP - General Pediatrics 06/05/18 04/25/22 No Pcp, Pcp PCP - General 06/08/22 07/19/22 Guadalupe Mcbride MD PCP - General Family Medicine 07/20/22 11/01/23 Sena Dominguez PA [address] [place] [address] [place] [address] PCP - BRADY Physician Tank Pumper 11/02/23 Levy Barry MD [address] [place] [address] [place] [address] PCP - General Family Medicine 12/20/23 documented as of this encounter
--- OUTSIDE RECORDS SUMMARY | 2025-08-14 15:18 | XMS_ITS | Encounter Summary ---
Author Organization [facility] work ([facility] Address [address] [place] [address] Care Team Providers Care Virtual Customer Assistant Name Role Phone Meme Steel MD Primary Care Provider [phone] No Pcp, Pcp Primary Care Provider Unavailabl Guadalupe Bardales MD Primary Care Provider [phone] Sena Dominguez Unavailable Levy Barry MD Primary Care Provider Unavailab le Source Comments The information that you have received may contain highly confidential and/or federally protected health information. This information has been disclosed to you from records protected by [facility]. The law prohibits you from [...] please contact the sender immediately.[facility] ([facility] Encounter Details Date Type Department Care Team (Late st Contact Info) Description 03/09/2016 Historical Note [facility] [employer] [facility] Devyn Vásquez MD [address] [place] [address] [phone] Social History Tobacco Use Types Packs/Day Years [...] CARRILLO - [facility] [address] [facility] [address] [place] [phone] Brenda Clay MD [address] [facility] [address] [place] [address] 04/15/2026 10:00 AM EDT Office Visit [facility]HA [facility] at [facility] + [facility] [address] [facility] [address] [place] [address] Sena Dominguez PA [address] [facility] [place] [address] documented as of this encounter Visit Diagnoses Not on filedocumented in this encounter Care Teams Virtual Customer Assistant Relationship Specialty Start Date End Date Meme Steel MD [address] [place] [address] 105 [place] [address] PCP - General Pediatrics 06/05/18 04/25/22 No Pcp, Pcp PCP - General 06/08/22 07/19/22 Guadalupe Mcbride MD PCP - General Family Medicine 07/20/22 11/01/23 Sena Dominguez PA [address] [place] [address] [place] [address] PCP - BRADY Physician Geology Associate 11/02/23 Levy Barry MD [address] [place] [address] [place] [address] PCP - General Family Medicine 12/20/23 documented as of this encounter
--- OUTSIDE RECORDS SUMMARY | 2025-08-14 15:18 | XMS_ITS | Encounter Summary ---
Author Organization [facility] work ([facility]) Address [address] [place] [address] Care Team Providers Care Conveyor Line Battery Charger Name Role Phone Meme Steel MD Primary Care Provider [phone] Pcp, Pcp Primary Care Provider Unavailabl Guadalupe Bardales MD Primary Care Provider [phone] Sena Dominguez Unavailable [phone] Levy Barry MD Primary Care Provider Unavailab le Source Comments The information that you have received may contain highly confidential and/or federally protected health information. This information has been disclosed to you from records protected by [facility]. The law prohibits you from making [...] sender immediately.[facility] ([facility]) Encounter Details Date Type Department Care Team (Late st Contact Info) Description 06/24/2005 Historical Note [facility] [employer] [facility] Devyn Vásquez MD [address] [place] [address] [phone] Social History Tobacco Use Types Packs/Day Years [...] LEATHA CARRILLO - [facility] [address] [facility] [address] [place] [phone] Brenda Clay MD [address] [facility] [address] [place] [address] 04/15/2026 10:00 AM EDT Office Visit LEATHA Primary Care at [facility] + [facility] [address] [facility] [address] [place] [address] Sena Dominguez PA [address] [facility] [place] [address] documented as of this encounter Visit Diagnoses Not on filedocumented in this encounter Care Teams Conveyor Line Battery Charger Relationship Specialty Start Date End Date Meme Steel MD [address] [place] [address] 105 [place] [address] PCP - General Pediatrics 06/05/18 04/25/22 No Pcp, Pcp PCP - General 06/08/22 07/19/22 Guadalupe Mcbride MD PCP - General Family Medicine 07/20/22 11/01/23 Sena Dominguez PA [address] [place] [address] [place] [address] PCP - BRADY Physician Bank Clerk 11/02/23 Levy Barry MD [address] [place] [address] [place] [address] PCP - General Family Medicine 12/20/23 documented as of this encounter
--- OUTSIDE RECORDS SUMMARY | 2025-08-14 15:18 | XMS_ITS | Encounter Summary ---
Author Organization [facility] work ([facility]) Address [address] [place] [address] Care Team Providers Care Ball Thread Machine Tender Name Role Phone Meme Steel MD Primary Care Provider [phone] Pcp, Pcp Primary Care Provider Unavailabl Guadalupe Bardales MD Primary Care Provider [phone] Sena Dominguez Unavailable [phone] Levy Barry MD Primary Care Provider Unavailab le Source Comments The information that you have received may contain highly confidential and/or federally protected health information. This information has been disclosed to you from records protected by [facility]. The law prohibits you [...] please contact the sender immediately.[facility] ([facility]) Encounter Details Date Type Department Care Team (Late st Contact Info) Description 10/27/2016 Historical Note [facility] [email or web address] [facility] Devyn Vásquez MD [address] [place] [address] [phone] Social History Tobacco Use Types Packs/Day Years [...] Visit LEATHA CARRILLO - [facility] [address] [facility] [address] [place] [phone] Brenda Clay MD [address] [facility] [address] [place] [address] 04/15/2026 10:00 AM EDT Office Visit LEATHA Primary [facility] at [facility] + [facility] [address] [facility] [address] [place] [address] Sena Dominguez PA [address] [facility] [place] [address] documented as of this encounter Visit Diagnoses Not on filedocumented in this encounter Care Teams Ball Thread Machine Tender Relationship Specialty Start Date End Date Meme Steel MD [address] [place] [address] 105 [place] [address] PCP - General Pediatrics 06/05/18 04/25/22 No Pcp, Pcp PCP - General 06/08/22 07/19/22 Guadalupe Mcbride MD PCP - General Family Medicine 07/20/22 11/01/23 Sena Dominguez PA [address] [place] [address] [place] [address] PCP - BRDAY Physician Superintendent Operations Division 11/02/23 Levy Barry MD [address] [place] [address] [place] [address] PCP - General Family Medicine 12/20/23 documented as of this encounter
--- OUTSIDE RECORDS SUMMARY | 2025-08-14 15:18 | XMS_ITS | Encounter Summary ---
Author Organization [facility] work ([facility]) Address [address] [place] [address] Care Team Providers Care Water Filterer Helper Name Role Phone Meme Steel MD Primary Care Provider [phone] No Pcp, Pcp Primary Care Provider Unavailabl Guadalupe Bardales MD Primary Care Provider [phone] Sena Dominguez Unavailable [phone] Levy Barry MD Primary Care Provider Unavailab le Source Comments The information that you have received may contain highly confidential and/or federally protected health information. This information has been disclosed to you from records protected by [employer] [facility]. The law prohibits you from [...] error, please contact the sender immediately.[facility] ([facility]) Encounter Details Date Type Department Care Team (Late st Contact Info) Description 06/30/2005 Historical Note [facility] [employer] [facility] Devyn Vásquez MD [address] [place] [address] [phone] Social History Tobacco Use Types Packs/Day Years [...] CARRILLO - [facility] [address] [facility] [address] [place] [phone] Brenda Clay MD [address] [facility] [address] [place] [address] 04/15/2026 10:00 AM EDT Office Visit LEATHA [facility] at [facility] + [facility] [address] [facility] [address] [place] [address] Sena Dominguez PA [address] [facility] [place] [address] documented as of this encounter Visit Diagnoses Not on filedocumented in this encounter Care Teams Water Filterer Helper Relationship Specialty Start Date End Date Meme Steel MD [address] [place] [address] 105 [place] [address] PCP - General Pediatrics 06/05/18 04/25/22 No Pcp, Pcp PCP - General 06/08/22 07/19/22 Guadalupe Mcbride MD PCP - General Family Medicine 07/20/22 11/01/23 Sena Dominguez PA [address] [place] [address] [place] [address] PCP - BRADY Physician Voice Studies Director 11/02/23 Levy Barry MD [address] [place] [address] [place] [address] PCP - General Family Medicine 12/20/23 documented as of this encounter
--- OUTSIDE RECORDS SUMMARY | 2025-08-14 15:18 | XMS_ITS | Encounter Summary ---
Author Organization [facility] work ([facility]) Address [address] [place] [address] Care Team Providers Care Residential Treatment Specialist Name Role Phone Meme Steel MD Primary Care Provider [phone] Pcp, Pcp Primary Care Provider Unavailabl Guadalupe Bardales MD Primary Care Provider [phone] Sena Dominguez Unavailable [phone] Levy Barry MD Primary Care Provider Unavailab le Source Comments The information that you have received may contain highly confidential and/or federally protected health information. This information has been disclosed to you from records protected by [facility]. The law prohibits you from [...] immediately.[facility] ([facility]) Encounter Details Date Type Department Care Team (Late st Contact Info) Description 10/07/2015 Historical Note [facility] [employer] [facility] Devyn Vásquez MD [address] [place] [address] [phone] Social History Tobacco Use Types Packs/Day Years [...] - [facility] [address] [facility] [address] [place] [phone] Brenda Clay MD [address] [facility] [address] [place] [address] 04/15/2026 10:00 AM EDT Office Visit [facility] [address] [facility] [address] [place] [address] Sena Dominguez PA [address] [facility] [place] [address] documented as of this encounter Visit Diagnoses Not on filedocumented in this encounter Care Teams Residential Treatment Specialist Relationship Specialty Start Date End Date Meme Steel MD [address] [place] [address] 105 [place] [address] PCP - General Pediatrics 06/05/18 04/25/22 No Pcp, Pcp PCP - General 06/08/22 07/19/22 Guadalupe Mcbride MD PCP - General Family Medicine 07/20/22 11/01/23 Sena Dominguez PA [address] [place] [address] [place] [address] PCP - BRADY Physician Sewing Machine Operator Paper Bags 11/02/23 Levy Barry MD [address] [place] [address] [place] [address] PCP - General Family Medicine 12/20/23 documented as of this encounter
--- OUTSIDE RECORDS SUMMARY | 2025-08-14 15:18 | XMS_ITS | Encounter Summary ---
Author Organization [facility] work ([facility]) Address [address] [place] [address] Care Team Providers Care Belt Picker Name Role Phone Meme Steel MD Primary Care Provider [phone] Pcp, Pcp Primary Care Provider Unavailabl Guadalupe Bardales MD Primary Care Provider [phone] Sena Dominguez Unavailable [phone] Levy Barry MD Primary Care Provider Unavailab le Source Comments The information that you have received may contain highly confidential and/or federally protected health information. This information has been disclosed to you from records protected by [facility]. The law prohibits [...] please contact the sender immediately.[facility] ([facility]) Encounter Details Date Type Department Care Team (Late st Contact Info) Description 01/16/2017 Historical Note [facility] WH[employer]FT System Devyn Vásquez MD [address] [place] [address] [phone] Social History Tobacco Use Types Packs/Day Years [...] CARRILLO - [facility] [address] [facility] [address] [place] [phone] Brenda Clay MD [address] [facility] [address] [place] [address] 04/15/2026 10:00 AM EDT Office Visit [facility] at [facility] + [facility] [address] [facility] [address] [place] [address] Sena Dominguez PA [address] [facility] [place] [address] documented as of this encounter Visit Diagnoses Not on filedocumented in this encounter Care Teams Belt Picker Relationship Specialty Start Date End Date Meme Steel MD [address] [place] [address] [place] [address] PCP - General Pediatrics 06/05/18 04/25/22 No Pcp, Pcp PCP - General 06/08/22 07/19/22 Guadalupe Mcbride MD PCP - General Family Medicine 07/20/22 11/01/23 Sena Dominguez PA [address] [place] [address] [place] [address] PCP - BRADY Physician Hand Bunch Maker 11/02/23 Levy Barry MD [address] [place] [address] [place] [address] PCP - General Family Medicine 12/20/23 documented as of this encounter
--- OUTSIDE RECORDS SUMMARY | 2025-08-14 15:18 | XMS_ITS | Encounter Summary ---
Author Organization [facility] work ([facility] Address [address] [place] [address] Care Team Providers Care Seam Taper Machine Name Role Phone Meme Steel MD Primary Care Provider No Pcp, Pcp Primary Care Provider Unavailabl Guadalupe Bardales MD Primary Care Provider [phone] Sena Dominguez Unavailable [phone] Levy Barry MD Primary Care Provider Unavailab le Source Comments The information that you have received may contain highly confidential and/or federally protected health information. This information has been disclosed to you from records protected by [facility]. The law prohibits you [...] contact the sender immediately.[facility] ([facility] Encounter Details Date Type Department Care Team (Late st Contact Info) Description 10/27/2016 Historical Note [facility] [employer] [facility] Devyn Vásquez MD [address] [place] [address] [phone] Social History Tobacco Use Types Packs/Day Years [...] LEATHA CARRILLO - [facility] [address] [facility] [address] [place] [phone] Brenda Clay MD [address] [facility] [address] [place] [address] 04/15/2026 10:00 AM EDT Office Visit [facility] + [facility] [address] [facility] [address] [place] [address] Sena Dominguez PA [address] [facility] [place] [address] documented as of this encounter Visit Diagnoses Not on filedocumented in this encounter Care Teams Seam Taper Machine Relationship Specialty Start Date End Date Meme Steel MD [address] [place] [address] 105 [place] [address] PCP - General Pediatrics 06/05/18 04/25/22 No Pcp, Pcp PCP - General 06/08/22 07/19/22 Guadalupe Mcbride MD PCP - General Family Medicine 07/20/22 11/01/23 Sena Dominguez PA [address] [place] [address] [place] [address] PCP - BRADY Physician Infantry Indirect Fire Crewmember 11/02/23 Levy Barry MD [address] [place] [address] [place] [address] PCP - General Family Medicine 12/20/23 documented as of this encounter
--- OUTSIDE RECORDS SUMMARY | 2025-08-14 15:18 | XMS_ITS | Encounter Summary ---
Author Organization [facility] work ([facility]) Address [address] [facility] [address] [place] [address] Care Team Providers Care Curtain Cutter Name Role Phone Meme Steel MD Primary Care Provider [phone] No Pcp, Pcp Primary Care Provider Unavailabl Guadalupe Bardales MD Primary Care Provider [phone] Sena Dominguez Unavailable [phone] Levy Barry MD Primary Care Provider Unavailab le Source Comments The information that you have received may contain highly confidential and/or federally protected health information. This information has been disclosed to you from records protected by [facility]. The law prohibits you from [...] immediately.[facility] ([facility]) Encounter Details Date Type Department Care Team (Late st Contact Info) Description 01/16/2017 Historical Note [facility] [employer] [facility] Devyn Vásquez MD [address] [place] [address] [phone] Social History Tobacco Use Types Packs/Day Years [...] CARRILLO - [facility] [address] [facility] [address] [place] [phone] Brenda Clay MD [address] [facility] [address] [place] [address] 04/15/2026 10:00 AM EDT Office Visit [facility] at [facility] + [facility] [address] [facility] [address] [place] [address] Sena Dominguez PA [address] [facility] [place] [address] documented as of this encounter Visit Diagnoses Not on filedocumented in this encounter Care Teams Curtain Cutter Relationship Specialty Start Date End Date Meme Steel MD [address] [place] [address] 105 [place] [address] PCP - General Pediatrics 06/05/18 04/25/22 No Pcp, Pcp PCP - General 06/08/22 07/19/22 Guadalupe Mcbride MD PCP - General Family Medicine 07/20/22 11/01/23 Sena Dominguez PA [address] [place] [address] [place] [address] PCP - BRADY Physician Duplicator Punch Operator 11/02/23 Levy Barry MD [address] [place] [address] [place] [address] PCP - General Family Medicine 12/20/23 documented as of this encounter
--- OUTSIDE RECORDS SUMMARY | 2025-08-14 15:18 | XMS_ITS | Encounter Summary ---
Author Organization [facility] work ([facility]) Address [address] [facility] [address] [place] [address] Care Team Providers Care Screening Technician Name Role Phone Meme Steel MD Primary Care Provider [phone] Pcp, Pcp Primary Care Provider Unavailabl Guadalupe Bardales MD Primary Care Provider [phone] Sena Dominguez Unavailable [phone] Levy Barry MD Primary Care Provider Unavailab le Source Comments The information that you have received may contain highly confidential and/or federally protected health information. This information has been disclosed to you from records protected by [email or web address]. The law prohibits you [...] please contact the sender immediately.[facility] ([facility]) Encounter Details Date Type Department Care Team (Late st Contact Info) Description 01/16/2017 Historical Note [facility] [employer] [facility] Devyn Vásquez MD [address] [place] [address] [phone] Social History Tobacco Use Types Packs/Day Years [...] LEATHA CARRILLO - [facility] [address] [facility] [address] [place] [phone] Brenda Clay MD [address] [facility] [address] [place] [address] 04/15/2026 10:00 AM EDT Office Visit [facility]HA [facility] at [facility] + [facility] [address] [facility] [address] [place] [address] Sena Dominguez PA [address] [facility] [place] [address] documented as of this encounter Visit Diagnoses Not on filedocumented in this encounter Care Teams Screening Technician Relationship Specialty Start Date End Date Meme Steel MD [address] [place] [address] 105 [place] [address] PCP - General Pediatrics 06/05/18 04/25/22 No Pcp, Pcp PCP - General 06/08/22 07/19/22 Guadalupe Mcbride MD PCP - General Family Medicine 07/20/22 11/01/23 Sena Dominguez PA [address] [place] [address] [place] [address] PCP - BRADY Physician Program Management Analyst 11/02/23 Levy Barry MD [address] [place] [address] [place] [address] PCP - General Family Medicine 12/20/23 documented as of this encounter
--- OUTSIDE RECORDS SUMMARY | 2025-08-14 15:18 | XMS_ITS | Encounter Summary ---
Author Organization [facility] work ([facility]) Address [address] [facility] [address] [place] [address] Care Team Providers Care Risk Professional Name Role Phone Meme Steel MD Primary Care Provider [phone] Pcp, Pcp Primary Care Provider Unavailabl Guadalupe Bardales MD Primary Care Provider [phone] Sena Dominguez Unavailable [phone] Levy Barry MD Primary Care Provider Unavailab le Source Comments The information that you have received may contain highly confidential and/or federally protected health information. This information has been disclosed to you from records protected by [employer] [facility] [place]. The law prohibits you from [...] in error, please contact the sender immediately. ([facility]) Encounter Details Date Type Department Care Team (Late st Contact Info) Description 10/23/2009 Historical Note [facility] [employer] [facility] Devyn Vásquez MD [address] [place] [address] [phone] Social History Tobacco Use Types Packs/Day Years [...] - [facility] [address] [facility] [address] [place] [phone] Brenda Clay MD [address] [facility] [address] [place] [address] 04/15/2026 10:00 AM EDT Office Visit [facility] at [facility] + [facility] [address] [facility] [address] [place] [address] Sena Dominguez PA [address] [facility] [place] [address] documented as of this encounter Visit Diagnoses Not on filedocumented in this encounter Care Teams Risk Professional Relationship Specialty Start Date End Date Meme Steel MD [address] [place] [address] 105 [place] [address] PCP - General Pediatrics 06/05/18 04/25/22 No Pcp, Pcp PCP - General 06/08/22 07/19/22 Guadalupe Mcbride MD PCP - General Family Medicine 07/20/22 11/01/23 Sena Dominguez PA [address] [place] [address] [place] [address] PCP - BRADY Physician Cloud Operations Engineer 11/02/23 Levy Barry MD [address] [place] [address] [place] [address] PCP - General Family Medicine 12/20/23 documented as of this encounter
--- OUTSIDE RECORDS SUMMARY | 2025-08-14 15:18 | XMS_ITS | Encounter Summary ---
Author Organization [facility] work ([facility]) Address [address] [place] [address] Care Team Providers Care Clay Caster Name Role Phone Meme Steel MD Primary Care Provider [phone] Pcp, Pcp Primary Care Provider Unavailabl Guadalupe Bardales MD Primary Care Provider [phone] Sena Dominguez Unavailable [phone] Levy Barry MD Primary Care Provider Unavailab le Source Comments The information that you have received may contain highly confidential and/or federally protected health information. This information has been disclosed to you from records protected by [facility]. The [...] sender immediately.[facility] ([facility]) Encounter Details Date Type Department Care Team (Late st Contact Info) Description 2004 Historical Note [facility] [employer] [facility] Devyn Vásquez MD [address] [place] [address] [phone] Social History Tobacco Use Types Packs/Day Years [...] LEATHA CARRILLO - [facility] [address] [facility] [address] [place] [phone] Brenda Clay MD [address] [facility] [address] [place] [phone] 04/15/2026 10:00 AM EDT Office Visit [facility]HA [facility] at [facility] + [facility] [address] [facility] [address] [place] [address] Sena Dominguez PA [address] [facility] [place] [address] documented as of this encounter Visit Diagnoses Not on filedocumented in this encounter Care Teams Clay Caster Relationship Specialty Start Date End Date Meme Steel MD [address] [place] [address] 105 [place] [address] PCP - General Pediatrics 06/05/18 04/25/22 No Pcp, Pcp PCP - General 06/08/22 07/19/22 Guadalupe Mcbride MD PCP - General Family Medicine 07/20/22 11/01/23 Sena Dominguez PA [address] [place] [address] [place] [address] PCP - BRADY Physician Model Builder 11/02/23 Levy Barry MD [address] [place] [address] [place] [address] PCP - General Family Medicine 12/20/23 documented as of this encounter
--- OUTSIDE RECORDS SUMMARY | 2025-08-14 15:18 | XMS_ITS | Encounter Summary ---
Author Organization [facility] work ([facility]) Address [address] [facility] [address] [place] [address] Care Team Providers Care Weight Loss Consultant Name Role Phone Meme Steel MD Primary Care Provider [phone] No Pcp, Pcp Primary Care Provider Unavailabl Guadalupe Bardales MD Primary Care Provider [phone] Sena Dominguez Unavailable [phone] Levy Barry MD Primary Care Provider Unavailab le Source Comments The information that you have received may contain highly confidential and/or federally protected health information. This information has been disclosed to you from records protected by [employer] [facility]. The law prohibits [...] immediately.[facility] ([facility]) Encounter Details Date Type Department Care Team (Late st Contact Info) Description 01/26/2005 Historical Note [facility] [employer] System Devyn Vásquez MD [address] [place] [address] [phone] Social History Tobacco Use Types Packs/Day Years [...] Visit LEATHA CARRILLO - [facility] [address] [facility] [address] [place] [phone] Brenda Clay MD [address] [facility] [address] [place] [address] 04/15/2026 10:00 AM EDT Office Visit [facility]HA [facility] at [facility] + [facility] [address] [facility] [address] [place] [address] Sena Dominguez PA [address] [facility] [place] [address] documented as of this encounter Visit Diagnoses Not on filedocumented in this encounter Care Teams Weight Loss Consultant Relationship Specialty Start Date End Date Meme Steel MD [address] [place] [address] 105 [place] [address] PCP - General Pediatrics 06/05/18 04/25/22 No Pcp, Pcp PCP - General 06/08/22 07/19/22 Guadalupe Mcbride MD PCP - General Family Medicine 07/20/22 11/01/23 Sena Dominguez PA [address] [place] [address] [place] [address] PCP - BRADY Physician Bar Catcher 11/02/23 Levy Barry MD [address] [place] [address] [place] [address] PCP - General Family Medicine 12/20/23 documented as of this encounter
--- OUTSIDE RECORDS SUMMARY | 2025-08-14 15:18 | XMS_ITS | Encounter Summary ---
Author Organization [facility] work ([facility]) Address [address] [facility] [address] [place] [address] Care Team Providers Care Stock Grader Name Role Phone Meme Steel MD Primary Care Provider [phone] Pcp, Pcp Primary Care Provider Unavailabl Guadalupe Bardales MD Primary Care Provider [phone] Sena Dominguez Unavailable [phone] Levy Barry MD Primary Care Provider Unavailab le Source Comments The information that you have received may contain highly confidential and/or federally protected health information. This information has been disclosed to you from records protected by [facility]. The law prohibits you from [...] contact the sender immediately.[facility] ([facility]) Encounter Details Date Type Department Care Team (Late st Contact Info) Description 08/07/2009 Historical Note [facility] [employer] System Devyn Vásquez MD [address] [place] [address] [phone] Social History Tobacco Use Types Packs/Day Years [...] LEATHA CARRILLO - [facility] [address] [facility] [address] [place] [phone] Brenda Clay MD [address] [facility] [address] [place] [phone] 04/15/2026 10:00 AM EDT Office Visit LE[facility]HA [facility] + [facility] [address] [facility] [address] [place] [address] Sena Dominguez PA [address] [facility] [place] [address] documented as of this encounter Visit Diagnoses Not on filedocumented in this encounter Care Teams Stock Grader Relationship Specialty Start Date End Date Meme Steel MD [address] [place] [address] 105 [place] [address] PCP - General Pediatrics 06/05/18 04/25/22 No Pcp, Pcp PCP - General 06/08/22 07/19/22 Guadalupe Mcbride MD PCP - General Family Medicine 07/20/22 11/01/23 Sena Dominguez PA [address] [place] [address] [place] [address] PCP - BRADY Physician Agricultural Sciences Professor 11/02/23 Levy Barry MD [address] [place] [address] [place] [address] PCP - General Family Medicine 12/20/23 documented as of this encounter
--- OUTSIDE RECORDS SUMMARY | 2025-08-14 15:18 | XMS_ITS | Encounter Summary ---
Author Organization [facility] work ([facility]) Address [address] [place] [address] Care Team Providers Care Show Girl Name Role Phone Meme Steel MD Primary Care Provider [phone] No Pcp, Pcp Primary Care Provider Unavailabl Guadalupe Bardales MD Primary Care Provider [phone] Sena Dominguez Unavailable [phone] Levy Barry MD Primary Care Provider Unavailab le Source Comments The information that you have received may contain highly confidential and/or federally protected health information. This information has been disclosed to you from records protected by [facility]. The law prohibits you [...] the sender immediately.[facility] ([facility]) Encounter Details Date Type Department Care Team (Late st Contact Info) Description 08/23/2010 Historical Note [facility] [employer] System Devyn Vásquez MD [address] [place] [address] [phone] Social History Tobacco Use Types Packs/Day Years [...] [facility] at [facility] [address] [facility] [address] [place] [phone] Brenda Clay MD [address] [facility] [address] [place] [address] 04/15/2026 10:00 AM EDT Office Visit [facility] at [facility] + [facility] [address] [facility] [address] [place] [address] Sena Dominguez PA [address] [facility] [place] [address] documented as of this encounter Visit Diagnoses Not on filedocumented in this encounter Care Teams Show Girl Relationship Specialty Start Date End Date Meme Steel MD [address] [place] [address] 105 [place] [address] PCP - General Pediatrics 06/05/18 04/25/22 No Pcp, Pcp PCP - General 06/08/22 07/19/22 Guadalupe Mcbride MD PCP - General Family Medicine 07/20/22 11/01/23 Sena Dominguez PA [address] [place] [address] [place] [address] PCP - BRADY Physician Director Information Security 11/02/23 Levy Barry MD [address] [place] [address] [place] [address] PCP - General Family Medicine 12/20/23 documented as of this encounter
--- OUTSIDE RECORDS SUMMARY | 2025-08-14 15:18 | XMS_ITS | Encounter Summary ---
Author Organization [facility] work ([facility]) Address [address] [place] [address] Care Team Providers Care Drum Saw Operator Name Role Phone Meme Steel MD Primary Care Provider [phone] Pcp, Pcp Primary Care Provider Unavailabl Guadalupe Bardales MD Primary Care Provider Sena Dominguez Unavailable Levy Barry MD Primary Care Provider Unavailab le Source Comments The information that you have received may contain highly confidential and/or federally protected health information. This information has been disclosed to you from records protected by [facility]. The law prohibits you from making [...] the sender immediately.[facility] ([facility]) Encounter Details Date Type Department Care Team (Late st Contact Info) Description 08/17/2010 Historical Note [facility] abaXX Technology System Devyn Vásquez MD [address] [place] [address] [phone] Social History Tobacco Use Types Packs/Day Years [...] CARRILLO - [facility] [address] [place] [phone] Brenda Clay MD [address] [facility] [address] [place] [phone] 04/15/2026 10:00 AM EDT Office Visit [facility]ATHA [facility] at [facility] + [facility] [address] [place] [address] Sena Dominguez PA [address] [facility] [place] [address] documented as of this encounter Visit Diagnoses Not on filedocumented in this encounter Care Teams Drum Saw Operator Relationship Specialty Start Date End Date Meme Steel MD [address] [place] [address] 105 [place] [address] PCP - General Pediatrics 06/05/18 04/25/22 No Pcp, Pcp PCP - General 06/08/22 07/19/22 Guadalupe Mcbride MD PCP - General Family Medicine 07/20/22 11/01/23 Sena Dominguez PA [address] [place] [address] [place] [address] PCP - BRADY Physician Military Source Operations Officer 11/02/23 Levy Barry MD [address] [place] [address] [place] [address] PCP - General Family Medicine 12/20/23 documented as of this encounter
--- OUTSIDE RECORDS SUMMARY | 2025-08-14 15:18 | XMS_ITS | Encounter Summary ---
Author Organization [facility] work ([facility]) Address [address] [place] [address] Care Team Providers Care Curator Zoological Museum Name Role Phone Meme Steel MD Primary Care Provider [phone] Pcp, Pcp Primary Care Provider Unavailabl Guadalupe Bardales MD Primary Care Provider [phone] Sena Dominguez Unavailable [phone] Levy Barry MD Primary Care Provider Unavailab le Source Comments The information that you have received may contain highly confidential and/or federally protected health information. This information has been disclosed to you from records protected by [facility]. The law prohibits you [...] please contact the sender immediately.[facility] ([facility]) Encounter Details Date Type Department Care Team (Late st Contact Info) Description 10/27/2016 Historical Note [facility] CertiVox System Devyn Vásquez MD [address] [place] [address] [phone] Social History Tobacco Use Types Packs/Day Years [...] Visit LEATHA CARRILLO - [facility] [address] [facility] [address] [place] [phone] Brenda Clay MD [address] [facility] [address] [place] [address] 04/15/2026 10:00 AM EDT Office Visit LEATHA Primary [facility] at [facility] [address] [facility] [address] [place] [address] Sena Dominguez PA [address] [facility] [place] [address] documented as of this encounter Visit Diagnoses Not on filedocumented in this encounter Care Teams Curator Zoological Museum Relationship Specialty Start Date End Date Meme Steel MD [address] [place] [address] 105 [place] [address] PCP - General Pediatrics 06/05/18 04/25/22 No Pcp, Pcp PCP - General 06/08/22 07/19/22 Guadalupe Mcbride MD PCP - General Family Medicine 07/20/22 11/01/23 Sena Dominguez PA [address] [place] [address] [place] [address] PCP - BRADY Physician Frame Bander 11/02/23 Levy Barry MD [address] [place] [address] [place] [address] PCP - General Family Medicine 12/20/23 documented as of this encounter
--- OUTSIDE RECORDS SUMMARY | 2025-08-14 15:18 | XMS_ITS | Encounter Summary ---
Author Organization [facility] work ([facility]) Address [address] [place] [address] Care Team Providers Care Rubber Attacher Name Role Phone Meme Steel MD Primary Care Provider [phone] Pcp, Pcp Primary Care Provider Unavailabl Guadalupe Bardales MD Primary Care Provider [phone] Sena Dominguez Unavailable [phone] Levy Barry MD Primary Care Provider Unavailab le Source Comments The information that you have received may contain highly confidential and/or federally protected health information. This information has been disclosed to you from records protected by [facility]. The law prohibits you from [...] the sender immediately.[facility] ([facility]) Encounter Details Date Type Department Care Team (Late st Contact Info) Description 09/21/2010 Historical Note SVMG CNZZ System Devyn Vásquez MD [address] [place] [address] [phone] Social History Tobacco Use Types Packs/Day Years [...] - [facility] [address] [facility] [address] [place] [phone] Brenda Clay MD [address] [facility] [address] [place] [address] 04/15/2026 10:00 AM EDT Office Visit LEATHA Primary [facility] at [facility] + [facility] [address] [facility] [address] [place] [address] Sena Dominguez PA [address] [facility] [place] [address] documented as of this encounter Visit Diagnoses Not on filedocumented in this encounter Care Teams Rubber Attacher Relationship Specialty Start Date End Date Meme Steel MD [address] [place] [address] 105 [place] [address] PCP - General Pediatrics 06/05/18 04/25/22 No Pcp, Pcp PCP - General 06/08/22 07/19/22 Guadalupe Mcbride MD PCP - General Family Medicine 07/20/22 11/01/23 Sena Dominguez PA [address] [place] [address] [place] [address] PCP - BRADY Physician Swimming Pool Service Technician 11/02/23 Levy Barry MD [address] [place] [address] [place] [address] PCP - General Family Medicine 12/20/23 documented as of this encounter
--- OUTSIDE RECORDS SUMMARY | 2025-08-14 15:18 | XMS_ITS | Encounter Summary ---
Author Organization [facility] work ([facility]) Address [address] [place] [address] Care Team Providers Care Armor Reconnaissance Specialist Name Role Phone Meme Steel MD Primary Care Provider [phone] Pcp, Pcp Primary Care Provider Unavailabl Guadalupe Bardales MD Primary Care Provider [phone] Sena Dominguez Unavailable [phone] Levy Barry MD Primary Care Provider Unavailab le Source Comments The information that you have received may contain highly confidential and/or federally protected health information. This information has been disclosed to you from records protected by [facility]. The law prohibits you from [...] please contact the sender immediately.[facility] ([facility]) Encounter Details Date Type Department Care Team (Late st Contact Info) Description 02/02/2016 Historical Note SVMG Talento al Aula System Devyn Vásquez MD [address] [place] [address] [phone] Social History Tobacco Use Types Packs/Day Years [...] CARRILLO - [facility] [address] [facility] [place] [phone] Brenda Clay MD [address] [facility] [address] [place] [address] 04/15/2026 10:00 AM EDT Office Visit LE[facility]HA [facility] at [facility] + [facility] [address] [facility] [address] [place] [address] Sena Dominguez PA [address] [facility] [place] [address] documented as of this encounter Visit Diagnoses Not on filedocumented in this encounter Care Teams Armor Reconnaissance Specialist Relationship Specialty Start Date End Date Meme Steel MD [address] [place] [address] 105 [place] [address] PCP - General Pediatrics 06/05/18 04/25/22 No Pcp, Pcp PCP - General 06/08/22 07/19/22 Guadalupe Mcbride MD PCP - General Family Medicine 07/20/22 11/01/23 Sena Dominguez PA [address] [place] [address] [place] [address] PCP - BRADY Physician Machine Greaser 11/02/23 Levy Barry MD [address] [place] [address] [place] [address] PCP - General Family Medicine 12/20/23 documented as of this encounter
--- OUTSIDE RECORDS SUMMARY | 2025-08-14 15:18 | XMS_ITS | Encounter Summary ---
Author Organization [facility] work ([facility]) Address [address] [place] [address] Care Team Providers Care Connie Cleaner Name Role Phone Meme Steel MD Primary Care Provider [phone] No Pcp, Pcp Primary Care Provider Unavailabl Guadalupe Bardales MD Primary Care Provider [phone] Sena Dominguez Unavailable [phone] Levy Barry MD Primary Care Provider Unavailab le Source Comments The information that you have received may contain highly confidential and/or federally protected health information. This information has been disclosed to you from records protected by [facility]. The [...] [facility] ([facility]) Encounter Details Date Type Department Care Team (Late st Contact Info) Description 02/19/2010 Historical Note SVMG Hubsphere System Devyn Vásquez MD [address] [place] [address] [phone] Social History Tobacco Use Types Packs/Day Years [...] - [facility] [address] [facility] [address] [place] [phone] Brenda Clay MD [address] [facility] [address] [place] [address] 04/15/2026 10:00 AM EDT Office Visit LEATHA Primary [facility] at [facility] [address] [facility] [address] [place] [address] Sena Dominguez PA [address] [facility] [place] [address] documented as of this encounter Visit Diagnoses Not on filedocumented in this encounter Care Teams Connie Cleaner Relationship Specialty Start Date End Date Meme Steel MD [address] [place] [address] 105 [place] [address] PCP - General Pediatrics 06/05/18 04/25/22 No Pcp, Pcp PCP - General 06/08/22 07/19/22 Guadalupe Mcbride MD PCP - General Family Medicine 07/20/22 11/01/23 Sena Dominguez PA [address] [place] [address] [place] [address] PCP - BRADY Physician Catering Staff Member 11/02/23 Levy Barry MD [address] [place] [address] [place] [address] PCP - General Family Medicine 12/20/23 documented as of this encounter
--- OUTSIDE RECORDS SUMMARY | 2025-08-14 15:18 | XMS_ITS | Encounter Summary ---
Author Organization [facility] work ([facility]) Address [address] [place] [address] Care Team Providers Care Lab Technologist Name Role Phone Meme Steel MD Primary Care Provider [phone] Pcp, Pcp Primary Care Provider Unavailabl Guadalupe Bardales MD Primary Care Provider [phone] Sena Dominguez Unavailable [phone] Levy Barry MD Primary Care Provider Unavailab le Source Comments The information that you have received may contain highly confidential and/or federally protected health information. This information has been disclosed to you from records protected by [facility]. The law prohibits you [...] contact the sender immediately.[facility] ([facility]) Encounter Details Date Type Department Care Team (Late st Contact Info) Description 08/17/2010 Historical Note SVMG Apani Networks System Devyn Vásquez MD [address] [place] [address] [phone] Social History Tobacco Use Types Packs/Day Years [...] [facility] [address] [facility] [address] [place] [phone] Brenda Clay MD [address] [facility] [address] [place] [address] 04/15/2026 10:00 AM EDT Office Visit [facility]HA [facility] at [facility] [address] [facility] [address] [place] [address] Sena Dominguez PA [address] [facility] [place] [address] documented as of this encounter Visit Diagnoses Not on filedocumented in this encounter Care Teams Lab Technologist Relationship Specialty Start Date End Date Meme Steel MD [address] [place] [address] 105 [place] [address] PCP - General Pediatrics 06/05/18 04/25/22 No Pcp, Pcp PCP - General 06/08/22 07/19/22 Guadalupe Mcbride MD PCP - General Family Medicine 07/20/22 11/01/23 Sena Dominguez PA [address] [place] [address] [place] [address] PCP - BRADY Physician Slab Installer 11/02/23 Levy Barry MD [address] [place] [address] [place] [address] PCP - General Family Medicine 12/20/23 documented as of this encounter
--- OUTSIDE RECORDS SUMMARY | 2025-08-14 15:18 | XMS_ITS | Encounter Summary ---
Author Organization [facility] work ([facility]) Address [address] [place] [address] Care Team Providers Care Blurb Writer Name Role Phone Meme Steel MD Primary Care Provider [phone] Pcp, Pcp Primary Care Provider Unavailabl Guadalupe Bardales MD Primary Care Provider [phone] Sena Dominguez Unavailable [phone] Levy Barry MD Primary Care Provider Unavailab le Source Comments The information that you have received may contain highly confidential and/or federally protected health information. This information has been disclosed to you from records protected by [email or web address]. The law prohibits you from [...] Contact Info) Description 03/31/2009 Historical Note SVMG YooDeal System Devyn Vásquez MD [address] [place] [address] [phone] Social History Tobacco Use Types Packs/Day Years [...] LEATHA CARRILLO - [facility] [address] [facility] [address] [place] [phone] Brenda Clay MD [address] [facility] [address] [place] [address] 04/15/2026 10:00 AM EDT Office Visit LEATHA Primary [facility] at [facility] + [facility] [address] [facility] [address] [place] [address] Sena Dominguez PA [address] [facility] [place] [address] documented as of this encounter Visit Diagnoses Not on filedocumented in this encounter Care Teams Blurb Writer Relationship Specialty Start Date End Date Meme Steel MD [address] [place] [address] 105 [place] [address] PCP - General Pediatrics 06/05/18 04/25/22 No Pcp, Pcp PCP - General 06/08/22 07/19/22 Guadalupe Mcbride MD PCP - General Family Medicine 07/20/22 11/01/23 Sena Dominguez PA [address] [place] [address] [place] [address] PCP - BRADY Physician Business Rules Developer 11/02/23 Levy Barry MD [address] [place] [address] [place] [address] PCP - General Family Medicine 12/20/23 documented as of this encounter
--- OUTSIDE RECORDS SUMMARY | 2025-08-14 15:18 | XMS_ITS | Encounter Summary ---
Author Organization [facility] work ([facility] Address [address] [place] [address] Care Team Providers Care Order Picker/Assembler Name Role Phone Meme Steel MD Primary Care Provider [phone] Pcp, Pcp Primary Care Provider Unavailabl Guadalupe Bardales MD Primary Care Provider [phone] Sena Dominguez Unavailable [phone] Levy Barry MD Primary Care Provider Unavailab le Source Comments The information that you have received may contain highly confidential and/or federally protected health information. This information has been disclosed to you from records protected by [facility]. The law prohibits [...] contact the sender immediately.[facility] ([facility] Encounter Details Date Type Department Care Team (Late st Contact Info) Description 10/29/2009 Historical Note [facility]G Bitstamp System Devyn Vásquez MD [address] [place] [address] [phone] Social History Tobacco Use Types Packs/Day Years [...] CARRILLO - [facility] [address] [facility] [address] [place] [phone] Brenda Clay MD [address] [facility] [address] [place] [address] 04/15/2026 10:00 AM EDT Office Visit LEATHA Primary Care at [facility] + [facility] [address] [facility] [address] [place] [address] Sena Dominguez PA [address] [facility] [place] [address] documented as of this encounter Visit Diagnoses Not on filedocumented in this encounter Care Teams Order Picker/Assembler Relationship Specialty Start Date End Date Meme Steel MD [address] [place] [address] 105 [place] [address] PCP - General Pediatrics 06/05/18 04/25/22 No Pcp, Pcp PCP - General 06/08/22 07/19/22 Guadalupe Mcbride MD PCP - General Family Medicine 07/20/22 11/01/23 Sena Dominguez PA [address] [place] [address] [place] [address] PCP - BRADY Physician Broommaker 11/02/23 Levy Barry MD [address] [place] [address] [place] [address] PCP - General Family Medicine 12/20/23 documented as of this encounter
--- OUTSIDE RECORDS SUMMARY | 2025-08-14 15:18 | XMS_ITS | Encounter Summary ---
Author Organization [facility] work ([facility]) Address [address] [facility] [address] [address] [place] [address] Care Team Providers Care Dog Behaviorist Name Role Phone Meme Steel MD Primary Care Provider [phone] Pcp, Pcp Primary Care Provider Unavailabl Guadalupe Bardales MD Primary Care Provider [phone] Sena Dominguez Unavailable [phone] Levy Barry MD Primary Care Provider Unavailab le Source Comments The information that you have received may contain highly confidential and/or federally protected health information. This information has been disclosed to you from records protected by [facility]. The law prohibits you [...] please contact the sender immediately.[facility] ([facility]) Encounter Details Date Type Department Care Team (Late st Contact Info) Description 06/24/2005 Historical Note [facility]G Equity [employer] System Devyn Vásquez MD [address] [place] [address] [phone] Social History Tobacco Use Types Packs/Day Years [...] CARRILLO - [facility] [address] [facility] [address] [place] [phone] Brenda Clay MD [address] [facility] [address] [place] [address] 04/15/2026 10:00 AM EDT Office Visit LEATHA [facility] at [facility] + [facility] [place] [facility] [address] [facility] [address] [place] [address] Sena Dominguez PA [address] [facility] [place] [address] documented as of this encounter Visit Diagnoses Not on filedocumented in this encounter Care Teams Dog Behaviorist Relationship Specialty Start Date End Date Meme Steel MD [address] [place] [address] 105 [place] [address] PCP - General Pediatrics 06/05/18 04/25/22 No Pcp, Pcp PCP - General 06/08/22 07/19/22 Guadalupe Mcbride MD PCP - General Family Medicine 07/20/22 11/01/23 Sena Dominguez PA [address] [place] [address] [place] [address] PCP - BRADY Physician Telecommunications Linesworker 11/02/23 Levy Barry MD [address] [place] [address] [place] [address] PCP - General Family Medicine 12/20/23 documented as of this encounter
--- OUTSIDE RECORDS SUMMARY | 2025-08-14 15:18 | XMS_ITS | Encounter Summary ---
Author Organization [facility] work ([facility]) Address [address] [place] [address] Care Team Providers Care Watershed Program Manager Name Role Phone Meme Steel MD Primary Care Provider [phone] No Pcp, Pcp Primary Care Provider Unavailabl Guadalupe Bardales MD Primary Care Provider [phone] Sena Dominguez Unavailable [phone] Levy Barry MD Primary Care Provider Unavailab le Source Comments The information that you have received may contain highly confidential and/or federally protected health information. This information has been disclosed to you from records protected by [facility]. The law prohibits you from making [...] contact the sender immediately.[facility] ([facility]) Encounter Details Date Type Department Care Team (Late st Contact Info) Description 06/30/2005 Historical Note [facility] Resilience System Devyn Vásquez MD [address] [place] [address] [phone] Social History Tobacco Use Types Packs/Day Years [...] CARRILLO - [facility] [address] [facility] [address] [place] [phone] Brenda Clay MD [address] [facility] [address] [place] [address] 04/15/2026 10:00 AM EDT Office Visit [facility] [address] [facility] [address] [place] [address] Sena Dominguez PA [address] [facility] [place] [address] documented as of this encounter Visit Diagnoses Not on filedocumented in this encounter Care Teams Watershed Program Manager Relationship Specialty Start Date End Date Meme Steel MD [address] [place] [address] 105 [place] [address] PCP - General Pediatrics 06/05/18 04/25/22 No Pcp, Pcp PCP - General 06/08/22 07/19/22 Guadalupe Mcbride MD PCP - General Family Medicine 07/20/22 11/01/23 Sena Dominguez PA [address] [place] [address] [place] [address] PCP - BRADY Physician Jammer Operator 11/02/23 Levy Barry MD [address] [place] [address] [place] [address] PCP - General Family Medicine 12/20/23 documented as of this encounter
--- OUTSIDE RECORDS SUMMARY | 2025-08-14 15:18 | XMS_ITS | Encounter Summary ---
Author Organization [facility] work ([facility]) Address [address] [place] [address] Care Team Providers Care Police Lieutenant Name Role Phone Meme Steel MD Primary Care Provider [phone] Pcp, Pcp Primary Care Provider Unavailabl Guadalupe Bardales MD Primary Care Provider Sena Dominguez Unavailable [phone] Levy Barry MD Primary Care Provider Unavailab le Source Comments The information that you have received may contain highly confidential and/or federally protected health information. This information has been disclosed to you from records protected by [facility]. The law prohibits you [...] please contact the sender immediately.[facility] ([facility]) Encounter Details Date Type Department Care Team (Late st Contact Info) Description 08/30/2005 Historical Note [facility] [employer] System Devyn Vásquez MD [address] [place] [address] [phone] Social History Tobacco Use Types Packs/Day Years [...] LEATHA CARRILLO - [facility] at [facility] [address] [facility] [address] [place] [phone] Brenda Clay MD [address] [facility] [address] [place] [address] 04/15/2026 10:00 AM EDT Office Visit LEATHA Primary [facility] at [facility] + [facility] [address] [facility] [address] [place] [address] Sena Dominguez PA [address] [facility] [place] [address] documented as of this encounter Visit Diagnoses Not on filedocumented in this encounter Care Teams Police Lieutenant Relationship Specialty Start Date End Date Meme Steel MD [address] [place] [address] [place] [address] PCP - General Pediatrics 06/05/18 04/25/22 No Pcp, Pcp PCP - General 06/08/22 07/19/22 Guadalupe Mcbride MD PCP - General Family Medicine 07/20/22 11/01/23 Sena Dominguez PA [address] [place] [address] [place] [address] PCP - BRADY Physician Director Clinical Information Services 11/02/23 Levy Barry MD [address] [place] [address] [place] [address] PCP - General Family Medicine 12/20/23 documented as of this encounter
--- OUTSIDE RECORDS SUMMARY | 2025-08-14 15:18 | XMS_ITS | Encounter Summary ---
Author Organization [facility] work ([facility]) Address [address] [place] [address] Care Team Providers Care Legislative Advocate Name Role Phone Meme Steel MD Primary Care Provider [phone] Pcp, Pcp Primary Care Provider Unavailabl Guadalupe Bardales MD Primary Care Provider [phone] Sena Dominguez Unavailable [phone] Levy Barry MD Primary Care Provider Unavailab le Source Comments The information that you have received may contain highly confidential and/or federally protected health information. This information has been disclosed to you from records protected by [facility]. The law [...] contact the sender immediately.[facility] ([facility]) Encounter Details Date Type Department Care Team (Late st Contact Info) Description 08/17/2010 Historical Note [facility] [employer] System Devyn Vásquez MD [address] [place] [address] [phone] Social History Tobacco Use Types Packs/Day Years [...] - [facility] [address] [facility] [address] [place] [phone] Brenda Clay MD [address] [facility] [address] [place] [phone] 04/15/2026 10:00 AM EDT Office Visit LEATHA Primary Care at [facility] + [facility] [address] [facility] [facility] [address] [place] [address] Sena Dominguez PA [address] [facility] [place] [address] documented as of this encounter Visit Diagnoses Not on filedocumented in this encounter Care Teams Legislative Advocate Relationship Specialty Start Date End Date Meme Steel MD [address] [place] [address] 105 [place] [address] PCP - General Pediatrics 06/05/18 04/25/22 No Pcp, Pcp PCP - General 06/08/22 07/19/22 Guadalupe Mcbride MD PCP - General Family Medicine 07/20/22 11/01/23 Sena Dominguez PA [address] [place] [address] [place] [address] PCP - BRADY Physician Control Board Operator 11/02/23 Levy Barry MD [address] [place] [address] [place] [address] PCP - General Family Medicine 12/20/23 documented as of this encounter
--- OUTSIDE RECORDS SUMMARY | 2025-08-14 15:18 | XMS_ITS | Encounter Summary ---
Author Organization [facility] work ([facility]) Address [address] [place] [address] Care Team Providers Care Plant Pathology Teacher Name Role Phone Meme Steel MD Primary Care Provider [phone] Pcp, Pcp Primary Care Provider Unavailabl Guadalupe Bardales MD Primary Care Provider [phone] Sena Dominguez Unavailable [phone] Levy Baryr MD Primary Care Provider Unavailab le Source Comments The information that you have received may contain highly confidential and/or federally protected health information. This information has been disclosed to you from records protected by [facility]. The law prohibits you from [...] please contact the sender immediately.[facility] ([facility]) Encounter Details Date Type Department Care Team (Late st Contact Info) Description 2004 Historical Note [facility] [employer] System Devyn Vásquez MD [address] [place] [address] [phone] Social History Tobacco Use Types Packs/Day Years [...] CARRILLO - [facility] [address] [facility] [address] [facility] [address] [place] [phone] Brenda Clay MD [address] [facility] [address] [place] [phone] 04/15/2026 10:00 AM EDT Office Visit LEATHA Primary [facility] at [facility] + [facility] [address] [facility] [place] [address] Sena Dominguez PA [address] [facility] [place] [address] documented as of this encounter Visit Diagnoses Not on filedocumented in this encounter Care Teams Plant Pathology Teacher Relationship Specialty Start Date End Date Meme Steel MD [address] [place] [address] 105 [place] [address] PCP - General Pediatrics 06/05/18 04/25/22 No Pcp, Pcp PCP - General 06/08/22 07/19/22 Guadalupe Mcbride MD PCP - General Family Medicine 07/20/22 11/01/23 Sena Dominguez PA [address] [place] [address] [place] [address] PCP - BRADY Physician Ciaio Lumite Injector 11/02/23 Levy Barry MD [address] [place] [address] [place] [address] PCP - General Family Medicine 12/20/23 documented as of this encounter
--- OUTSIDE RECORDS SUMMARY | 2025-08-14 15:18 | XMS_ITS | Encounter Summary ---
Author Organization [facility] work ([facility]) Address [address] [place] [address] Care Team Providers Care Senior Chemist Name Role Phone Meme Steel MD Primary Care Provider [phone] Pcp, Pcp Primary Care Provider Unavailabl Guadalupe Bardales MD Primary Care Provider [phone] Sena Dominguez Unavailable [phone] Levy Barry MD Primary Care Provider Unavailab le Source Comments The information that you have received may contain highly confidential and/or federally protected health information. This information has been disclosed to you from records protected by [facility]. The law prohibits you from [...] contact the sender immediately.[facility] ([facility]) Encounter Details Date Type Department Care Team (Late st Contact Info) Description 03/09/2016 Historical Note [facility] [employer] System Devyn Vásquez MD [address] [place] [address] [phone] Social History Tobacco Use Types Packs/Day Years [...] CARRILLO - [facility] [address] [facility] [address] [place] [phone] Brenda Clay MD [address] [facility] [address] [place] [address] 04/15/2026 10:00 AM EDT Office Visit LEATHA Primary Care at [facility] + [facility] [address] [facility] [address] [place] [address] Sena Dominguez PA [address] [facility] [place] [address] documented as of this encounter Visit Diagnoses Not on filedocumented in this encounter Care Teams Senior Chemist Relationship Specialty Start Date End Date Meme Steel MD [address] [place] [address] 105 [place] [address] PCP - General Pediatrics 06/05/18 04/25/22 No Pcp, Pcp PCP - General 06/08/22 07/19/22 Guadalupe Mcbride MD PCP - General Family Medicine 07/20/22 11/01/23 Sena Dominguez PA [address] [place] [address] [place] [address] PCP - BRADY Physician Glass Driller 11/02/23 Levy Barry MD [address] [place] [address] [place] [address] PCP - General Family Medicine 12/20/23 documented as of this encounter
--- OUTSIDE RECORDS SUMMARY | 2025-08-14 15:18 | XMS_ITS | Encounter Summary ---
Author Organization [facility] work ([facility]) Address [address] [place] [address] Care Team Providers Care Textbook Associate Name Role Phone Meme Steel MD Primary Care Provider [phone] Pcp, Pcp Primary Care Provider Unavailabl Guadalupe Bardales MD Primary Care Provider [phone] Sena Dominguez Unavailable [phone] Levy Barry MD Primary Care Provider Unavailab le Source Comments The information that you have received may contain highly confidential and/or federally protected health information. This information has been disclosed to you from records protected by [facility]. The law prohibits you [...] Contact Info) Description 01/16/2017 Historical Note [facility] [employer] System Devyn Vásquez MD [address] [place] [address] [phone] Social History Tobacco Use Types Packs/Day Years [...] Visit LEATHA CARRILLO - [facility] [address] [facility] [address] [place] [phone] Brenda Clay MD [address] [facility] [address] [place] [phone] 04/15/2026 10:00 AM EDT Office Visit LEATHA Primary [facility] at [facility] + [facility] [address] [facility] [address] [place] [address] Sena Dominguez PA [address] [facility] [place] [address] documented as of this encounter Visit Diagnoses Not on filedocumented in this encounter Care Teams Textbook Associate Relationship Specialty Start Date End Date Meme Steel MD [address] [place] [address] 105 [place] [address] PCP - General Pediatrics 06/05/18 04/25/22 No Pcp, Pcp PCP - General 06/08/22 07/19/22 Guadalupe Mcbride MD PCP - General Family Medicine 07/20/22 11/01/23 Sena Dominguez PA [address] [place] [address] [place] [address] PCP - BRADY Physician Tube Roller 11/02/23 Levy Barry MD [address] [place] [address] [place] [address] PCP - General Family Medicine 12/20/23 documented as of this encounter
--- OUTSIDE RECORDS SUMMARY | 2025-08-14 15:19 | XMS_ITS | Encounter Summary ---
Author Organization [facility] work ([facility]) Address [address] [place] [address] Care Team Providers Care Vacuum Drier Tender Name Role Phone Meme Steel MD Primary Care Provider [phone] Pcp, Pcp Primary Care Provider Unavailabl Guadalupe Bardales MD Primary Care Provider [phone] Sena Dominguez Unavailable [phone] Levy Barry MD Primary Care Provider Unavailab le Source Comments The information that you have received may contain highly confidential and/or federally protected health information. This information has been disclosed to you from records protected by [facility]. The law prohibits you from [...] please contact the sender immediately.[facility] ([facility]) Encounter Details Date Type Department Care Team (Late st Contact Info) Description 10/01/2008 Historical Note [facility] [employer] System Devyn Vásquez MD [address] [place] [address] [phone] Social History Tobacco Use Types Packs/Day Years [...] CARRILLO - [facility] [address] [facility] [address] [place] [phone] Brenda Clay MD [address] [facility] [address] [place] [phone] 04/15/2026 10:00 AM EDT Office Visit LEATHA Primary Care at [facility] + [facility] [place] [address] [facility] [address] [place] [address] Sena Dominguez PA [address] [facility] [place] [address] documented as of this encounter Visit Diagnoses Not on filedocumented in this encounter Care Teams Vacuum Drier Tender Relationship Specialty Start Date End Date Meme Steel MD [address] [place] [address] 105 [place] [address] PCP - General Pediatrics 06/05/18 04/25/22 No Pcp, Pcp PCP - General 06/08/22 07/19/22 Guadalupe Mcbride MD PCP - General Family Medicine 07/20/22 11/01/23 Sena Dominguez PA [address] [place] [address] [place] [address] PCP - BRADY Physician Car Dumper Operator 11/02/23 Levy Barry MD [address] [place] [address] [place] [address] PCP - General Family Medicine 12/20/23 documented as of this encounter
--- OUTSIDE RECORDS SUMMARY | 2025-08-14 15:19 | XMS_ITS | Encounter Summary ---
Author Organization [facility] work ([facility]) Address [address] [place] [address] Care Team Providers Care Pension Adviser Name Role Phone Meme Steel MD Primary Care Provider [phone] Pcp, Pcp Primary Care Provider Unavailabl Guadalupe Bardales MD Primary Care Provider [phone] Sena Dominguez Unavailable [phone] Levy Barry MD Primary Care Provider Unavailab le Source Comments The information that you have received may contain highly confidential and/or federally protected health information. This information has been disclosed to you from records protected by [facility]. The law prohibits you from making [...] please contact the sender immediately.[facility] ([facility]) Encounter Details Date Type Department Care Team (Late st Contact Info) Description 2004 Historical Note [facility] [employer] System Devyn Vásquez MD [address] [place] [address] [phone] Social History Tobacco Use Types Packs/Day Years [...] CARRILLO - [facility] [address] [facility] [address] [place] [phone] Brenda Clay MD [address] [facility] [address] [place] [phone] 04/15/2026 10:00 AM EDT Office Visit LEATHA [facility] at [facility] + [facility] [address] [facility] [address] [place] [address] Sena Dominguez PA [address] [facility] [place] [address] documented as of this encounter Visit Diagnoses Not on filedocumented in this encounter Care Teams Pension Adviser Relationship Specialty Start Date End Date Meme Steel MD [address] [place] [address] 105 [place] [address] PCP - General Pediatrics 06/05/18 04/25/22 No Pcp, Pcp PCP - General 06/08/22 07/19/22 Guadalupe Mcbride MD PCP - General Family Medicine 07/20/22 11/01/23 Sena Dominguez PA [address] [place] [address] [place] [address] PCP - BRADY Physician Sand Drier 11/02/23 Levy Barry MD [address] [place] [address] [place] [address] PCP - General Family Medicine 12/20/23 documented as of this encounter
--- OUTSIDE RECORDS SUMMARY | 2025-08-14 15:19 | XMS_ITS | Encounter Summary ---
Author Organization [facility] work ([facility]) Address [address] [place] [address] Care Team Providers Care Trading Floor Operator Name Role Phone Meme Steel MD Primary Care Provider [phone] Pcp, Pcp Primary Care Provider Unavailabl Guadalupe Bardales MD Primary Care Provider [phone] Sena Dominguez Unavailable [phone] Levy Barry MD Primary Care Provider Unavailab le Source Comments The information that you have received may contain highly confidential and/or federally protected health information. This information has been disclosed to you from records protected by [facility]. The law prohibits you from [...] contact the sender immediately.[facility] ([facility]) Encounter Details Date Type Department Care Team (Late st Contact Info) Description 08/06/2009 Historical Note [facility] [employer] System Devyn Vásquez MD [address] [place] [address] [phone] Social History Tobacco Use Types Packs/Day Years [...] - [facility] [address] [facility] [address] [place] [phone] Brenda Clay MD [address] [facility] [address] [place] [address] 04/15/2026 10:00 AM EDT Office Visit LEATHA Primary [facility] at [facility] + [facility] [address] [facility] [address] [place] [address] Sena Dominguez PA [address] [facility] [place] [address] documented as of this encounter Visit Diagnoses Not on filedocumented in this encounter Care Teams Trading Floor Operator Relationship Specialty Start Date End Date Meme Steel MD [address] [place] [address] 105 [place] [address] PCP - General Pediatrics 06/05/18 04/25/22 No Pcp, Pcp PCP - General 06/08/22 07/19/22 Guadalupe Mcbride MD PCP - General Family Medicine 07/20/22 11/01/23 Sena Dominguez PA [address] [place] [address] [place] [address] PCP - BRADY Physician Driver License Technician 11/02/23 Levy Barry MD [address] [place] [address] [place] [address] PCP - General Family Medicine 12/20/23 documented as of this encounter
--- OUTSIDE RECORDS SUMMARY | 2025-08-14 15:19 | XMS_ITS | Encounter Summary ---
Author Organization [facility] work ([facility]) Address [address] [place] [address] Care Team Providers Care Jv Baseball Coach Name Role Phone Meme Steel MD Primary Care Provider [phone] Pcp, Pcp Primary Care Provider Unavailabl Guadalupe Bardales MD Primary Care Provider Sena Dominguez Unavailable [phone] Levy Barry MD Primary Care Provider Unavailab le Source Comments The information that you have received may contain highly confidential and/or federally protected health information. This information has been disclosed to you from records protected by [facility]. The law prohibits you from [...] Contact Info) Description 09/05/2008 Historical Note [facility] [employer] System Devyn Vsáquez MD [address] [place] [address] [phone] Social History Tobacco Use Types Packs/Day Years [...] LEATHA CARRILLO - [facility] [address] [facility] [address] [place] [phone] Brenda Clay MD [address] [facility] [address] [place] [address] 04/15/2026 10:00 AM EDT Office Visit LEATHA Primary [facility] at [facility] + [facility] [address] [facility] [address] [place] [address] Sena Dominguez PA [address] [facility] [place] [address] documented as of this encounter Visit Diagnoses Not on filedocumented in this encounter Care Teams Jv Baseball Coach Relationship Specialty Start Date End Date Meme Steel MD [address] [place] [address] 105 [place] [address] PCP - General Pediatrics 06/05/18 04/25/22 No Pcp, Pcp PCP - General 06/08/22 07/19/22 Guadalupe Mcbride MD PCP - General Family Medicine 07/20/22 11/01/23 Sena Dominguez PA [address] [place] [address] [place] [address] PCP - BRADY Physician Production Superintendent Hydro 11/02/23 Levy Barry MD [address] [place] [address] [place] [address] PCP - General Family Medicine 12/20/23 documented as of this encounter
--- OUTSIDE RECORDS SUMMARY | 2025-08-14 15:19 | XMS_ITS | Encounter Summary ---
Author Organization [facility] work ([facility]) Address [address] [place] [address] Care Team Providers Care Padding Gluer Name Role Phone Meme Steel MD Primary Care Provider [phone] Pcp, Pcp Primary Care Provider Unavailabl Guadalupe Bardales MD Primary Care Provider [phone] Sena Dominguez Unavailable [phone] Levy Barry MD Primary Care Provider Unavailab le Source Comments The information that you have received may contain highly confidential and/or federally protected health information. This information has been disclosed to you from records protected by [facility]. The law prohibits you from making [...] contact the sender immediately.[facility] ([facility]) Encounter Details Date Type Department Care Team (Late st Contact Info) Description 08/06/2009 Historical Note [facility] [employer] System Devyn Vásquez MD [address] [place] [address] [phone] Social History Tobacco Use Types Packs/Day Years [...] - [facility] [address] [facility] [address] [place] [phone] Brenda Clay MD [address] [facility] [address] [place] [phone] 04/15/2026 10:00 AM EDT Office Visit LEATHA Primary Care at [facility] + [facility] [address] [facility] [address] [place] [address] Sena Dominguez PA [address] [facility] [place] [address] documented as of this encounter Visit Diagnoses Not on filedocumented in this encounter Care Teams Padding Gluer Relationship Specialty Start Date End Date Meme Steel MD [address] [place] [address] 105 [place] [address] PCP - General Pediatrics 06/05/18 04/25/22 No Pcp, Pcp PCP - General 06/08/22 07/19/22 Guadalupe Mcbride MD PCP - General Family Medicine 07/20/22 11/01/23 Sena Dominguez PA [address] [place] [address] [place] [address] PCP - BRADY Physician Director Counseling Bureau 11/02/23 Levy Barry MD [address] [place] [address] [place] [address] PCP - General Family Medicine 12/20/23 documented as of this encounter
--- OUTSIDE RECORDS SUMMARY | 2025-08-14 15:19 | XMS_ITS | Encounter Summary ---
Author Organization [facility] work ([facility]) Address [address] [place] [address] Care Team Providers Care Cylinder Honer Name Role Phone Meme Steel MD Primary Care Provider [phone] Pcp, Pcp Primary Care Provider Unavailabl Guadalupe Bardales MD Primary Care Provider [phone] Sena Dominguez Unavailable Levy Barry MD Primary Care Provider Unavailab le Source Comments The information that you have received may contain highly confidential and/or federally protected health information. This information has been disclosed to you from records protected by [facility]. The law prohibits you from [...] contact the sender immediately.[facility] [place] [facility] ([facility]) Encounter Details Date Type Department Care Team (Late st Contact Info) Description 02/07/2005 Historical Note [facility] TapnScrap System Devyn Vásquez MD [address] [place] [address] [phone] Social History Tobacco Use Types Packs/Day Years [...] Visit LEATHA CARRILLO - [facility] [address] [facility] [address] [place] [phone] Brenda Clay MD [address] [facility] [address] [place] [address] 04/15/2026 10:00 AM EDT Office Visit [facility] [address] [facility] [address] [place] [address] Sena Dominguez PA [address] [facility] [place] [address] documented as of this encounter Visit Diagnoses Not on filedocumented in this encounter Care Teams Cylinder Honer Relationship Specialty Start Date End Date Meme Steel MD [address] [place] [address] [place] [address] PCP - General Pediatrics 06/05/18 04/25/22 No Pcp, Pcp PCP - General 06/08/22 07/19/22 Guadalupe Mcbride MD PCP - General Family Medicine 07/20/22 11/01/23 Sena Dominguez PA [address] [place] [address] [place] [address] PCP - BRADY Physician District Fire Chief 11/02/23 Levy Barry MD [address] [place] [address] [place] [address] PCP - General Family Medicine 12/20/23 documented as of this encounter
--- OUTSIDE RECORDS SUMMARY | 2025-08-14 15:19 | XMS_ITS | Encounter Summary ---
Author Organization [facility] work ([facility]) Address [address] [place] [address] Care Team Providers Care Centrifugal Extractor Operator Name Role Phone Meme Steel MD Primary Care Provider [phone] Pcp, Pcp Primary Care Provider Unavailabl Guadalupe Bardales MD Primary Care Provider [phone] Sena Dominguez Unavailable [phone] Levy Barry MD Primary Care Provider Unavailab le Source Comments The information that you have received may contain highly confidential and/or federally protected health information. This information has been disclosed to you from records protected by [facility]. The law prohibits you from [...] [facility] ([facility]) Encounter Details Date Type Department Care Team (Late st Contact Info) Description 04/09/2009 Historical Note [facility] Akebia [employer]rapeutics System Devyn Vásquez MD [address] [place] [address] [phone] Social History Tobacco Use Types Packs/Day Years [...] CARRILLO - [facility] [address] [facility] [address] [place] [phone] Brenda Clay MD [address] [facility] [address] [place] [address] 04/15/2026 10:00 AM EDT Office Visit [facility]HA [facility] + [facility] [address] [facility] [address] [place] [address] Sena Dominguez PA [address] [facility] [place] [address] documented as of this encounter Visit Diagnoses Not on filedocumented in this encounter Care Teams Centrifugal Extractor Operator Relationship Specialty Start Date End Date Meme Steel MD [address] [place] [address] 105 [place] [address] PCP - General Pediatrics 06/05/18 04/25/22 No Pcp, Pcp PCP - General 06/08/22 07/19/22 Guadalupe Mcbride MD PCP - General Family Medicine 07/20/22 11/01/23 Sena Dominguez PA [address] [place] [address] [place] [address] PCP - BRADY Physician Director Trading 11/02/23 Levy Barry MD [address] [place] [address] [place] [address] PCP - General Family Medicine 12/20/23 documented as of this encounter
--- OUTSIDE RECORDS SUMMARY | 2025-08-14 15:19 | XMS_ITS | Encounter Summary ---
Author Organization [facility] work ([facility]) Address [address] [place] [address] Care Team Providers Care Clay Processing Labourer Name Role Phone Meme Steel MD Primary Care Provider [phone] Pcp, Pcp Primary Care Provider Unavailabl Guadalupe Bardales MD Primary Care Provider [phone] Sena Dominguez Unavailable [phone] Levy Barry MD Primary Care Provider Unavailab le Source Comments The information that you have received may contain highly confidential and/or federally protected health information. This information has been disclosed to you from records protected by [facility]. The law prohibits you from [...] sender immediately.[facility] ([facility]) Encounter Details Date Type Department Care Team (Late st Contact Info) Description 2004 Historical Note [facility] Encore Alert System Devyn Vásquez MD [address] [place] [address] [phone] Social History Tobacco Use Types Packs/Day Years [...] LEATHA CARRILLO - [facility] [address] [facility] [address] [place] [phone] Brenda Clay MD [address] [facility] [address] [place] [address] 04/15/2026 10:00 AM EDT Office Visit [facility]HA [facility] at [facility] + [facility] [address] [facility] [address] [place] [address] Sena Dominguez PA [address] [facility] [place] [address] documented as of this encounter Visit Diagnoses Not on filedocumented in this encounter Care Teams Clay Processing Labourer Relationship Specialty Start Date End Date Meme Steel MD [address] [place] [address] 105 [place] [address] PCP - General Pediatrics 06/05/18 04/25/22 No Pcp, Pcp PCP - General 06/08/22 07/19/22 Guadalupe Mcbride MD PCP - General Family Medicine 07/20/22 11/01/23 Sena Dominguez PA [address] [place] [address] [place] [address] PCP - BRADY Physician Linux Support Engineer 11/02/23 Levy Barry MD [address] [place] [address] [place] [address] PCP - General Family Medicine 12/20/23 documented as of this encounter
--- OUTSIDE RECORDS SUMMARY | 2025-08-14 15:19 | XMS_ITS | Encounter Summary ---
Author Organization [facility] work ([facility]) Address [address] [place] [address] Care Team Providers Care Professional Bondsman Name Role Phone Meme Steel MD Primary Care Provider [phone] Pcp, Pcp Primary Care Provider Unavailabl Guadalupe Bardales MD Primary Care Provider [phone] Sena Dominguez Unavailable [phone] Levy Barry MD Primary Care Provider Unavailab le Source Comments The information that you have received may contain highly confidential and/or federally protected health information. This information has been disclosed to you from records protected by [facility]. The law prohibits you [...] error, please contact the sender immediately.[facility] ([facility]) Encounter Details Date Type Department Care Team (Late st Contact Info) Description 12/31/2015 Historical Note [facility] Nanoogo System Devyn Vásquez MD [address] [place] [address] [id number] Social History Tobacco Use Types Packs/Day Years [...] [facility] [address] [facility] [address] [place] [phone] Brenda Clay MD [address] [facility] [address] [place] [address] 04/15/2026 10:00 AM EDT Office Visit [facility] [place] + [facility] [address] [facility] [address] [place] [address] Sena Dominguez PA [address] [facility] [place] [address] documented as of this encounter Visit Diagnoses Not on filedocumented in this encounter Care Teams Professional Bondsman Relationship Specialty Start Date End Date Meme Steel MD [address] [place] [address] 105 [place] [address] PCP - General Pediatrics 06/05/18 04/25/22 No Pcp, Pcp PCP - General 06/08/22 07/19/22 Guadalupe Mcbride MD PCP - General Family Medicine 07/20/22 11/01/23 Sena Dominguez PA [address] [place] [address] [place] [address] PCP - BRADY Physician High School Home Economics Teacher 11/02/23 Levy Barry MD [address] [place] [address] [place] [address] PCP - General Family Medicine 12/20/23 documented as of this encounter
--- OUTSIDE RECORDS SUMMARY | 2025-08-14 15:19 | XMS_ITS | Encounter Summary ---
Author Organization [facility] work ([facility]) Address [address] [place] [address] Care Team Providers Care Cable Tv Installer Name Role Phone Meme Steel MD Primary Care Provider [phone] Pcp, Pcp Primary Care Provider Unavailabl Guadalupe Bardales MD Primary Care Provider [phone] Sena Dominguez Unavailable [phone] Levy Barry MD Primary Care Provider Unavailab le Source Comments The information that you have received may contain highly confidential and/or federally protected health information. This information has been disclosed to you from records protected by [facility]. The law prohibits you from [...] please contact the sender immediately.[facility] ([facility]) Encounter Details Date Type Department Care Team (Late st Contact Info) Description 10/05/2015 Historical Note [facility] OpenHomes System Devyn Vásquez MD [address] [place] [address] [phone] Social History Tobacco Use Types Packs/Day Years [...] CARRILLO - [facility] [address] [facility] [address] [place] [phone] Brenda Clay MD [address] [facility] [address] [place] [phone] 04/15/2026 10:00 AM EDT Office Visit [facility]HA [facility] at [facility] + [facility] [address] [facility] [address] [place] [address] Sena Dominguez PA [address] [facility] [place] [address] documented as of this encounter Visit Diagnoses Not on filedocumented in this encounter Care Teams Cable Tv Installer Relationship Specialty Start Date End Date Meme Steel MD [address] [place] [address] 105 [place] [address] PCP - General Pediatrics 06/05/18 04/25/22 No Pcp, Pcp PCP - General 06/08/22 07/19/22 Guadalupe Mcbride MD PCP - General Family Medicine 07/20/22 11/01/23 Sena Dominguez PA [address] [place] [address] [place] [address] PCP - BRADY Physician Geophysical Laboratory Supervisor 11/02/23 Levy Barry MD [address] [place] [address] [place] [address] PCP - General Family Medicine 12/20/23 documented as of this encounter
--- OUTSIDE RECORDS SUMMARY | 2025-08-14 15:19 | XMS_ITS | Encounter Summary ---
Author Organization [facility] work ([facility]) Address [address] [place] [address] Care Team Providers Care Manager Chemical Name Role Phone Meme Steel MD Primary Care Provider [phone] Pcp, Pcp Primary Care Provider Unavailabl Guadalupe Bardales MD Primary Care Provider [phone] Sena Dominguez Unavailable [phone] Levy Barry MD Primary Care Provider Unavailab le Source Comments The information that you have received may contain highly confidential and/or federally protected health information. This information has been disclosed to you from records protected by [facility]. The law prohibits you [...] sender immediately.[facility] ([facility]) Encounter Details Date Type Department Care Team (Late st Contact Info) Description 2004 Historical Note [facility]G Tigerspike System Devyn Vásquez MD [address] [place] [address] [phone] Social History Tobacco Use Types Packs/Day Years [...] - [facility] [address] [facility] [address] [place] [phone] Brenda Clay MD [address] [facility] [address] [place] [address] 04/15/2026 10:00 AM EDT Office Visit LE[facility]HA [facility] + [facility] [address] [facility] [address] [place] [address] Sena Dominguez PA [address] [facility] [place] [address] documented as of this encounter Visit Diagnoses Not on filedocumented in this encounter Care Teams Manager Chemical Relationship Specialty Start Date End Date Meme Steel MD [address] [place] [address] 105 [place] [address] PCP - General Pediatrics 06/05/18 04/25/22 No Pcp, Pcp PCP - General 06/08/22 07/19/22 Guadalupe Mcbride MD PCP - General Family Medicine 07/20/22 11/01/23 Sena Dominguez PA [address] [place] [address] [place] [address] PCP - BRADY Physician Car Body Mechanic 11/02/23 Levy Barry MD [address] [place] [address] [place] [address] PCP - General Family Medicine 12/20/23 documented as of this encounter
--- OUTSIDE RECORDS SUMMARY | 2025-08-14 15:19 | XMS_ITS | Encounter Summary ---
Author Organization [facility] work ([facility]) Address [address] [address] [place] [address] Care Team Providers Care Flour Blender Helper Name Role Phone Meme Steel MD Primary Care Provider [phone] Pcp, Pcp Primary Care Provider Unavailabl Guadalupe Bardales MD Primary Care Provider [phone] Sena Dominguez Unavailable [phone] Levy Barry MD Primary Care Provider Unavailab le Source Comments The information that you have received may contain highly confidential and/or federally protected health information. This information has been disclosed to you from records protected by [facility] [facility]. The law prohibits you [...] please contact the sender immediately.[facility] ([facility]) Encounter Details Date Type Department Care Team (Late st Contact Info) Description 04/09/2009 Historical Note [facility] Kivivi System Devyn Vásquez MD [address] [place] [address] [phone] Social History Tobacco Use Types Packs/Day Years [...] - [facility] [address] [facility] [address] [place] [phone] Brenda Clay MD [address] [facility] [address] [place] [address] 04/15/2026 10:00 AM EDT Office Visit LE[facility]HA [facility] + [facility] [address] [facility] [address] [place] [address] Sena Dominguez PA [address] [facility] [place] [address] documented as of this encounter Visit Diagnoses Not on filedocumented in this encounter Care Teams Flour Blender Helper Relationship Specialty Start Date End Date Meme Steel MD [address] [place] [address] 105 [place] [address] PCP - General Pediatrics 06/05/18 04/25/22 No Pcp, Pcp PCP - General 06/08/22 07/19/22 Guadalupe Mcbride MD PCP - General Family Medicine 07/20/22 11/01/23 Sena Dominguez PA [address] [place] [address] [place] [address] PCP - BRADY Physician Senior Underwriting Assistant 11/02/23 Levy Barry MD [address] [place] [address] [place] [address] PCP - General Family Medicine 12/20/23 documented as of this encounter
--- OUTSIDE RECORDS SUMMARY | 2025-08-14 15:19 | XMS_ITS | Encounter Summary ---
Author Organization [facility] work ([facility]) Address [address] [facility] [address] [address] [place] [address] Care Team Providers Care Link Trainer Name Role Phone Meme Steel MD Primary Care Provider [phone] Pcp, Pcp Primary Care Provider Unavailabl Guadalupe Bardales MD Primary Care Provider [phone] Sena Dominguez Unavailable [phone] Levy Barry MD Primary Care Provider Unavailab le Source Comments The information that you have received may contain highly confidential and/or federally protected health information. This information has been disclosed to you from records protected by [facility]. The law prohibits you from making [...] contact the sender immediately.[facility] ([facility]) Encounter Details Date Type Department Care Team (Late st Contact Info) Description 03/09/2005 Historical Note [facility] Roadnet System Devyn Vásquez MD [address] [place] [address] [phone] Social History Tobacco Use Types Packs/Day Years [...] LEATHA CARRILLO - [facility] [address] [facility] [address] [place] [phone] Brenda Clay MD [address] [facility] [address] [place] [address] 04/15/2026 10:00 AM EDT Office Visit LEATHA [facility] at [facility] + [facility] [address] [facility] [address] [place] [address] Sena Dominguez PA [address] [facility] [place] [address] documented as of this encounter Visit Diagnoses Not on filedocumented in this encounter Care Teams Link Trainer Relationship Specialty Start Date End Date Meme Steel MD [address] [place] [address] 105 [place] [address] PCP - General Pediatrics 06/05/18 04/25/22 No Pcp, Pcp PCP - General 06/08/22 07/19/22 Guadalupe Mcbride MD PCP - General Family Medicine 07/20/22 11/01/23 Sena Dominguez PA [address] [place] [address] [place] [address] PCP - BRADY Physician Land Resource Specialist 11/02/23 Levy Barry MD [address] [place] [address] [place] [address] PCP - General Family Medicine 12/20/23 documented as of this encounter
--- OUTSIDE RECORDS SUMMARY | 2025-08-14 15:19 | XMS_ITS | Encounter Summary ---
Author Organization [facility] work ([facility]) Address [address] [place] [address] Care Team Providers Care Sales And Service Engineer Name Role Phone Meme Steel MD Primary Care Provider [phone] No Pcp, Pcp Primary Care Provider Unavailabl Guadalupe Bardales MD Primary Care Provider Sena Dominguez Unavailable [phone] Levy Barry MD Primary Care Provider Unavailab le Source Comments The information that you have received may contain highly confidential and/or federally protected health information. This information has been disclosed to you from records protected by [employer] [facility]. The law prohibits you [...] please contact the sender immediately.[facility] ([facility]) Encounter Details Date Type Department Care Team (Late st Contact Info) Description 01/28/2005 Historical Note [facility] Weever Apps System Devyn Vásquez MD [address] [place] [address] [phone] Social History Tobacco Use Types Packs/Day Years [...] Visit LEATHA CARRILLO - [facility] [address] [facility] [address] [place] [phone] Brenda Clay MD [address] [facility] [address] [place] [phone] 04/15/2026 10:00 AM EDT Office Visit LEATHA [facility] at [facility] + [facility] [address] [facility] [address] [place] [address] Sena Dominguez PA [address] [facility] [place] [address] documented as of this encounter Visit Diagnoses Not on filedocumented in this encounter Care Teams Sales And Service Engineer Relationship Specialty Start Date End Date Meme Steel MD [address] [place] [address] 105 [place] [address] PCP - General Pediatrics 06/05/18 04/25/22 No Pcp, Pcp PCP - General 06/08/22 07/19/22 Guadalupe Mcbride MD PCP - General Family Medicine 07/20/22 11/01/23 Sena Dominguez PA [address] [place] [address] [place] [address] PCP - BRADY Physician Aircraft Electrical Systems Specialist 11/02/23 Levy Barry MD [address] [place] [address] [place] [address] PCP - General Family Medicine 12/20/23 documented as of this encounter
--- OUTSIDE RECORDS SUMMARY | 2025-08-14 15:19 | XMS_ITS | Encounter Summary ---
Author Organization [facility] work ([facility]) Address [address] [place] [address] Care Team Providers Care Blow Molding Machine Tender Name Role Phone Meme Steel MD Primary Care Provider No Pcp, Pcp Primary Care Provider Unavailabl Guadalupe Bardales MD Primary Care Provider Sena Dominguez Unavailable [phone] Levy Barry MD Primary Care Provider Unavailab le Source Comments The information that you have received may contain highly confidential and/or federally protected health information. This information has been disclosed to you from records protected by [facility]. The law prohibits you [...] please contact the sender immediately.[facility] ([facility]) Encounter Details Date Type Department Care Team (Late st Contact Info) Description 05/28/2015 Historical Note [facility] Salesvue System Devyn Vásquez MD [address] [place] [address] [phone] Social History Tobacco Use Types Packs/Day Years [...] CARRILLO - [facility] [address] [facility] [address] [place] [phone] Brenda Clay MD [address] [facility] [address] [place] [address] 04/15/2026 10:00 AM EDT Office Visit LETAHA [facility] at [facility] + [facility] [address] [facility] [address] [place] [address] Sena Dominguez PA [address] [facility] [place] [address] documented as of this encounter Visit Diagnoses Not on filedocumented in this encounter Care Teams Blow Molding Machine Tender Relationship Specialty Start Date End Date Meme Steel MD [address] [place] [address] 105 [place] [address] PCP - General Pediatrics 06/05/18 04/25/22 No Pcp, Pcp PCP - General 06/08/22 07/19/22 Guadalupe Mcbride MD PCP - General Family Medicine 07/20/22 11/01/23 Sena Dominguez PA [address] [place] [address] [place] [address] PCP - BRADY Physician Stick Feeder 11/02/23 Levy Barry MD [address] [place] [address] [place] [address] PCP - General Family Medicine 12/20/23 documented as of this encounter
--- OUTSIDE RECORDS SUMMARY | 2025-08-14 15:19 | XMS_ITS | Encounter Summary ---
Author Organization [facility] work ([facility]) Address [address] [place] [address] Care Team Providers Care Truck Dock Material Mover Name Role Phone Meme Steel MD Primary Care Provider [phone] Pcp, Pcp Primary Care Provider Unavailabl Guadalupe Bardales MD Primary Care Provider [phone] Sena Dominguez Unavailable [phone] Levy Barry MD Primary Care Provider Unavailab le Source Comments The information that you have received may contain highly confidential and/or federally protected health information. This information has been disclosed to you from records protected by [facility]. The law prohibits you from making [...] sender immediately.[facility] ([facility]) Encounter Details Date Type Department Care Team (Late st Contact Info) Description 09/15/2015 Historical Note [facility] [employer] System Devyn Vásquez MD [address] [place] [address] [phone] Social History Tobacco Use Types Packs/Day Years [...] CARRILLO - [facility] [address] [facility] [address] [place] [phone] Brenda Clay MD [address] [facility] [address] [place] [phone] 04/15/2026 10:00 AM EDT Office Visit [facility] + [facility] [address] [facility] [address] [place] [address] Sena Dominguez PA [address] [facility] [place] [address] documented as of this encounter Visit Diagnoses Not on filedocumented in this encounter Care Teams Truck Dock Material Mover Relationship Specialty Start Date End Date Meme Steel MD [address] [place] [address] 105 [place] [address] PCP - General Pediatrics 06/05/18 04/25/22 No Pcp, Pcp PCP - General 06/08/22 07/19/22 Guadalupe Mcbride MD PCP - General Family Medicine 07/20/22 11/01/23 Sena Dominguez PA [address] [place] [address] [place] [address] PCP - BRADY Physician Evp General Counsel 11/02/23 Levy Barry MD [address] [place] [address] [place] [address] PCP - General Family Medicine 12/20/23 documented as of this encounter
--- OUTSIDE RECORDS SUMMARY | 2025-08-14 15:19 | XMS_ITS | Encounter Summary ---
Author Organization [facility] work ([facility] Address [address] [place] [address] Care Team Providers Care Rubber Worker Name Role Phone Meme Steel MD Primary Care Provider [phone] Pcp, Pcp Primary Care Provider Unavailabl Guadalupe Bardales MD Primary Care Provider [phone] Sena Dominguez Unavailable [phone] Levy Barry MD Primary Care Provider Unavailab le Source Comments The information that you have received may contain highly confidential and/or federally protected health information. This information has been disclosed to you from records protected by [facility]. The law prohibits you [...] the sender immediately.[facility] ([facility] Encounter Details Date Type Department Care Team (Late st Contact Info) Description 08/17/2008 Historical Note [facility] [employer] System Devyn Vásquez MD [address] [place] [address] [phone] Social History Tobacco Use Types Packs/Day Years [...] LEATHA CARRILLO - [facility] [address] [facility] [address] [place] [phone] Brenda Clay MD [address] [facility] [address] [place] [phone] 04/15/2026 10:00 AM EDT Office Visit [facility] [address] [facility] [address] [place] [address] Sena Dominguez PA [address] [facility] [place] [address] documented as of this encounter Visit Diagnoses Not on filedocumented in this encounter Care Teams Rubber Worker Relationship Specialty Start Date End Date Meme Steel MD [address] [place] [address] 105 [place] [address] PCP - General Pediatrics 06/05/18 04/25/22 No Pcp, Pcp PCP - General 06/08/22 07/19/22 Guadalupe Mcbride MD PCP - General Family Medicine 07/20/22 11/01/23 Sena Dominguez PA [address] [place] [address] [place] [address] PCP - BRADY Physician Emergency Man 11/02/23 Levy Barry MD [address] [place] [address] [place] [address] PCP - General Family Medicine 12/20/23 documented as of this encounter
--- OUTSIDE RECORDS SUMMARY | 2025-08-14 15:19 | XMS_ITS | Encounter Summary ---
Author Organization [facility] work ([facility]) Address [address] [place] [address] Care Team Providers Care Crop Puller Name Role Phone Meme Steel MD Primary Care Provider [phone] Pcp, Pcp Primary Care Provider Unavailabl Guadalupe Bardales MD Primary Care Provider [phone] Sena Dominguez Unavailable [phone] Levy Barry MD Primary Care Provider Unavailab le Source Comments The information that you have received may contain highly confidential and/or federally protected health information. This information has been disclosed to you from records protected by [facility]. The law prohibits you [...] contact the sender immediately.[facility] ([facility]) Encounter Details Date Type Department Care Team (Late st Contact Info) Description 2004 Historical Note [facility] [employer] System Devyn Vásquez MD [address] [place] [address] [phone] Social History Tobacco Use Types Packs/Day Years [...] CARRILLO - [facility] [address] [facility] [address] [place] [phone] Brenda Clay MD [address] [facility] [address] [place] [phone] 04/15/2026 10:00 AM EDT Office Visit LEATHA [facility] at [facility] + [facility] [address] [facility] [address] [place] [address] Sena Dominguez PA [address] [facility] [place] [address] documented as of this encounter Visit Diagnoses Not on filedocumented in this encounter Care Teams Crop Puller Relationship Specialty Start Date End Date Meme Steel MD [address] [place] [address] 105 [place] [address] PCP - General Pediatrics 06/05/18 04/25/22 No Pcp, Pcp PCP - General 06/08/22 07/19/22 Guadalupe Mcbride MD PCP - General Family Medicine 07/20/22 11/01/23 Sena Dominguez PA [address] [place] [address] [place] [address] PCP - BRADY Physician Channel Lip Stiffener Insoles 11/02/23 Levy Barry MD [address] [place] [address] [place] [address] PCP - General Family Medicine 12/20/23 documented as of this encounter
--- OUTSIDE RECORDS SUMMARY | 2025-08-14 15:19 | XMS_ITS | Encounter Summary ---
Author Organization [facility] work ([facility]) Address [address] [place] [address] Care Team Providers Care Mobile Lounge Driver Or Operator Name Role Phone Meme Steel MD Primary Care Provider [phone] Pcp, Pcp Primary Care Provider Unavailabl Guadalupe Bardales MD Primary Care Provider [phone] Sena Dominguez Unavailable [phone] Levy Barry MD Primary Care Provider Unavailab le Source Comments The information that you have received may contain highly confidential and/or federally protected health information. This information has been disclosed to you from records protected by [facility]. The law prohibits you [...] contact the sender immediately.[facility] ([facility]) Encounter Details Date Type Department Care Team (Late st Contact Info) Description 03/10/2009 Historical Note [facility] [employer] System Devyn Vásquez MD [address] [place] [address] [phone] Social History Tobacco Use Types Packs/Day Years [...] LEATHA CARRILLO - [facility] [address] [facility] [address] [place] [phone] Brenda Clay MD [address] [facility] [address] [place] [phone] 04/15/2026 10:00 AM EDT Office Visit [facility] at [facility] + [facility] [address] [facility] [address] [place] [address] Sena Dominguez PA [address] [facility] [place] [address] documented as of this encounter Visit Diagnoses Not on filedocumented in this encounter Care Teams Mobile Lounge Driver Or Operator Relationship Specialty Start Date End Date Meme Steel MD [address] [place] [address] 105 [place] [address] PCP - General Pediatrics 06/05/18 04/25/22 No Pcp, Pcp PCP - General 06/08/22 07/19/22 Guadalupe Mcbride MD PCP - General Family Medicine 07/20/22 11/01/23 Sena Dominguez PA [address] [place] [address] [place] [address] PCP - BRADY Physician Enterprise Application Administrator 11/02/23 Levy Barry MD [address] [place] [address] [place] [address] PCP - General Family Medicine 12/20/23 documented as of this encounter
--- OUTSIDE RECORDS SUMMARY | 2025-08-14 15:19 | XMS_ITS | Encounter Summary ---
Author Organization [facility] work ([facility]) Address [address] [place] [address] Care Team Providers Care Nutrition Coordinator Name Role Phone Meme Steel MD Primary Care Provider [phone] Pcp, Pcp Primary Care Provider Unavailabl Guadalupe Bardales MD Primary Care Provider [phone] Sena Dominguez Unavailable Levy Barry MD Primary Care Provider Unavailab le Source Comments The information that you have received may contain highly confidential and/or federally protected health information. This information has been disclosed to you from records protected by [facility]. The law prohibits you [...] contact the sender immediately.[facility] ([facility]) Encounter Details Date Type Department Care Team (Late st Contact Info) Description 04/12/2005 Historical Note [facility] [employer] System Devyn Vásquez MD [address] [place] [address] [phone] Social History Tobacco Use Types Packs/Day Years [...] LEATHA CARRILLO - [facility] [address] [facility] [address] [place] [phone] Brenda Clay MD [address] [facility] [address] [place] [address] 04/15/2026 10:00 AM EDT Office Visit [facility]HA [facility] at [facility] + [facility] [address] [facility] [address] [place] [address] Sena Dominguez PA [address] [facility] [place] [address] documented as of this encounter Visit Diagnoses Not on filedocumented in this encounter Care Teams Nutrition Coordinator Relationship Specialty Start Date End Date Meme Steel MD [address] [place] [address] 105 [place] [address] PCP - General Pediatrics 06/05/18 04/25/22 No Pcp, Pcp PCP - General 06/08/22 07/19/22 Guadalupe Mcbride MD PCP - General Family Medicine 07/20/22 11/01/23 Sena Dominguez PA [address] [place] [address] [place] [address] PCP - BRADY Physician Prep Cook 11/02/23 Levy Barry MD [address] [place] [address] [place] [address] PCP - General Family Medicine 12/20/23 documented as of this encounter
--- OUTSIDE RECORDS SUMMARY | 2025-08-14 15:19 | XMS_ITS | Encounter Summary ---
Author Organization [facility] work ([facility]) Address [address] [place] [address] Care Team Providers Care Scrap Charger Name Role Phone Meme Steel MD Primary Care Provider [phone] Pcp, Pcp Primary Care Provider Unavailabl Guadalupe Bardales MD Primary Care Provider [phone] Sena Dominguez Unavailable [phone] Levy Barry MD Primary Care Provider Unavailab le Source Comments The information that you have received may contain highly confidential and/or federally protected health information. This information has been disclosed to you from records protected by [facility]. The law prohibits you [...] [facility] ([facility]) Encounter Details Date Type Department Care Team (Late st Contact Info) Description 03/10/2009 Historical Note [facility] [employer] System Devyn Vásquez MD [address] [place] [address] [phone] Social History Tobacco Use Types Packs/Day Years [...] CARRILLO - [facility] [address] [facility] [address] [place] [phone] Brenda Clay MD [address] [facility] [address] [place] [phone] 04/15/2026 10:00 AM EDT Office Visit LEATHA [facility] at [facility] + [facility] [address] [facility] [address] [place] [address] Sena Dominguez PA [address] [facility] [place] [address] documented as of this encounter Visit Diagnoses Not on filedocumented in this encounter Care Teams Scrap Charger Relationship Specialty Start Date End Date Meme Steel MD [address] [place] [address] 105 [place] [address] PCP - General Pediatrics 06/05/18 04/25/22 No Pcp, Pcp PCP - General 06/08/22 07/19/22 Guadalupe Mcbride MD PCP - General Family Medicine 07/20/22 11/01/23 Sena Dominguez PA [address] [place] [address] [place] [address] PCP - BRADY Physician Chucking Lathe Operator 11/02/23 Levy Barry MD [address] [place] [address] [place] [address] PCP - General Family Medicine 12/20/23 documented as of this encounter
--- OUTSIDE RECORDS SUMMARY | 2025-08-14 15:19 | XMS_ITS | Encounter Summary ---
Author Organization [facility] work ([facility]) Address [address] [place] [address] Care Team Providers Care Office Support Specialist Name Role Phone Meme Steel MD Primary Care Provider [phone] Pcp, Pcp Primary Care Provider Unavailabl Guadalupe Bardales MD Primary Care Provider [phone] Sena Dominguez Unavailable [phone] Levy Barry MD Primary Care Provider Unavailab le Source Comments The information that you have received may contain highly confidential and/or federally protected health information. This information has been disclosed to you from records protected by [facility]. The law prohibits you from [...] please contact the sender immediately.[facility] ([facility]) Encounter Details Date Type Department Care Team (Late st Contact Info) Description 10/05/2015 Historical Note [facility] [employer] System Devyn Vásquez MD [address] [place] [address] [phone] Social History Tobacco Use Types Packs/Day Years [...] CARRILLO - [facility] [address] [facility] [address] [place] [phone] Brenda Clay MD [address] [facility] [address] [place] [address] 04/15/2026 10:00 AM EDT Office Visit LEATHA [facility] at [facility] [address] [facility] [address] [place] [address] Sena Dominguez PA [address] [facility] [place] [address] documented as of this encounter Visit Diagnoses Not on filedocumented in this encounter Care Teams Office Support Specialist Relationship Specialty Start Date End Date Meme Steel MD [address] [place] [address] 105 [place] [address] PCP - General Pediatrics 06/05/18 04/25/22 No Pcp, Pcp PCP - General 06/08/22 07/19/22 Guadalupe Mcbride MD PCP - General Family Medicine 07/20/22 11/01/23 Sena Dominguez PA [address] [place] [address] [place] [address] PCP - BRADY Physician Body Hanger 11/02/23 Levy Barry MD [address] [place] [address] [place] [address] PCP - General Family Medicine 12/20/23 documented as of this encounter
--- OUTSIDE RECORDS SUMMARY | 2025-08-14 15:19 | XMS_ITS | Encounter Summary ---
Author Organization [facility] work ([facility]) Address [address] [facility] [address] [address] [place] [address] Care Team Providers Care Pump Press Operator Name Role Phone Meme Steel MD Primary Care Provider [phone] No Pcp, Pcp Primary Care Provider Unavailabl Guadalupe Bardales MD Primary Care Provider [phone] Sena Dominguez Unavailable [phone] Levy Barry MD Primary Care Provider Unavailab le Source Comments The information that you have received may contain highly confidential and/or federally protected health information. This information has been disclosed to you from records protected by [facility]. The law prohibits you from [...] please contact the sender immediately.[facility] ([facility]) Encounter Details Date Type Department Care Team (Late st Contact Info) Description 01/26/2005 Historical Note [facility] [employer] System Devyn Vásquez MD [address] [place] [address] [phone] Social History Tobacco Use Types Packs/Day Years [...] Visit LEATHA CARRILLO - [facility] [address] [facility] [address] [place] [phone] Brenda Clay MD [address] [facility] [address] [place] [address] 04/15/2026 10:00 AM EDT Office Visit LEATHA [facility] at [facility] + [facility] [address] [facility] [address] [place] [phone] Sena Dominguez PA [address] [facility] [place] [address] documented as of this encounter Visit Diagnoses Not on filedocumented in this encounter Care Teams Pump Press Operator Relationship Specialty Start Date End Date Meme Steel MD [address] [place] [address] 105 [place] [address] PCP - General Pediatrics 06/05/18 04/25/22 No Pcp, Pcp PCP - General 06/08/22 07/19/22 Guadalupe Mcbride MD PCP - General Family Medicine 07/20/22 11/01/23 Sena Dominguez PA [address] [place] [address] [place] [address] PCP - BRADY Physician Can Piler 11/02/23 Levy Barry MD [address] [place] [address] [place] [address] PCP - General Family Medicine 12/20/23 documented as of this encounter
--- OUTSIDE RECORDS SUMMARY | 2025-08-14 15:19 | XMS_ITS | Encounter Summary ---
Author Organization [facility] work ([facility]) Address [address] [place] [address] Care Team Providers Care Floral Artist Name Role Phone Meme Steel MD Primary Care Provider [phone] No Pcp, Pcp Primary Care Provider Unavailabl Guadalupe Bardales MD Primary Care Provider [phone] Sena Dominguez Unavailable [phone] Levy Barry MD Primary Care Provider Unavailab le Source Comments The information that you have received may contain highly confidential and/or federally protected health information. This information has been disclosed to you from records protected by [facility]. The law prohibits [...] error, please contact the sender immediately.[facility] ([facility]) Encounter Details Date Type Department Care Team (Late st Contact Info) Description 04/09/2009 Historical Note [facility] [employer] System Devyn Vásquez MD [address] [place] [address] [phone] Social History Tobacco Use Types Packs/Day Years [...] CARRILLO - [facility] [address] [facility] [address] [place] [phone] Brenda Clay MD [address] [facility] [address] [place] [phone] 04/15/2026 10:00 AM EDT Office Visit LEATHA [facility] at [facility] + [facility] [address] [facility] [address] [place] [address] Sena Dominguez PA [address] [facility] [place] [address] documented as of this encounter Visit Diagnoses Not on filedocumented in this encounter Care Teams Floral Artist Relationship Specialty Start Date End Date Meme Steel MD [address] [place] [address] 105 [place] [address] PCP - General Pediatrics 06/05/18 04/25/22 No Pcp, Pcp PCP - General 06/08/22 07/19/22 Guadalupe Mcbride MD PCP - General Family Medicine 07/20/22 11/01/23 Sena Dominguez PA [address] [place] [address] [place] [address] PCP - BRADY Physician Gun Stock Maker 11/02/23 Levy Barry MD [address] [place] [address] [place] [address] PCP - General Family Medicine 12/20/23 documented as of this encounter
--- OUTSIDE RECORDS SUMMARY | 2025-08-14 15:19 | XMS_ITS | Encounter Summary ---
Author Organization [facility] work ([facility]) Address [address] [facility] [address] [address] [place] [address] Care Team Providers Care Setter Off Name Role Phone Meme Steel MD Primary Care Provider [phone] No Pcp, Pcp Primary Care Provider Unavailabl Guadalupe Bardales MD Primary Care Provider [phone] Sena Dominguez Unavailable [phone] Levy Barry MD Primary Care Provider Unavailab le Source Comments The information that you have received may contain highly confidential and/or federally protected health information. This information has been disclosed to you from records protected by [facility]. The law prohibits you from [...] contact the sender immediately.[facility] ([facility]) Encounter Details Date Type Department Care Team (Late st Contact Info) Description 04/09/2009 Historical Note [facility] [employer] System Devyn Vásquez MD [address] [place] [address] [phone] Social History Tobacco Use Types Packs/Day Years [...] [facility] [address] [facility] [address] [place] [phone] Brenda Clay MD [address] [facility] [address] [place] [phone] 04/15/2026 10:00 AM EDT Office Visit LEATHA [facility] at [facility] + [facility] [address] [facility] [address] [place] [address] Sena Dominguez PA [address] [facility] [place] [address] documented as of this encounter Visit Diagnoses Not on filedocumented in this encounter Care Teams Setter Off Relationship Specialty Start Date End Date Meme Steel MD [address] [place] [address] 105 [place] [address] PCP - General Pediatrics 06/05/18 04/25/22 No Pcp, Pcp PCP - General 06/08/22 07/19/22 Guadalupe Mcbride MD PCP - General Family Medicine 07/20/22 11/01/23 Sena Dominguez PA [address] [place] [address] [place] [address] PCP - BRADY Physician Financial Associate 11/02/23 Levy Barry MD [address] [place] [address] [place] [address] PCP - General Family Medicine 12/20/23 documented as of this encounter
--- OUTSIDE RECORDS SUMMARY | 2025-08-14 15:19 | XMS_ITS | Encounter Summary ---
Author Organization [facility] work ([facility]) Address [address] [place] [address] Care Team Providers Care Fruit Grading Supervisor Name Role Phone Meme Steel MD Primary Care Provider [phone] Pcp, Pcp Primary Care Provider Unavailabl Guadalupe Bardales MD Primary Care Provider [phone] Sena Dominguez Unavailable [phone] Levy Barry MD Primary Care Provider Unavailab le Source Comments The information that you have received may contain highly confidential and/or federally protected health information. This information has been disclosed to you from records protected by [facility]. The law prohibits you from [...] error, please contact the sender immediately.[facility] ([facility]) Encounter Details Date Type Department Care Team (Late st Contact Info) Description 2004 Historical Note [facility] Proximex System Devyn Vásquez MD [address] [place] [address] [phone] Social History Tobacco Use Types Packs/Day Years [...] LEATHA CARRILLO - [facility] [address] [facility] [address] [place] [phone] Brenda Clay MD [address] [facility] [address] [place] [address] 04/15/2026 10:00 AM EDT Office Visit [facility]HA [facility] at [facility] + [facility] [address] [facility] [address] [place] [address] Sena Dominguez PA [address] [facility] [place] [address] documented as of this encounter Visit Diagnoses Not on filedocumented in this encounter Care Teams Fruit Grading Supervisor Relationship Specialty Start Date End Date Meme Steel MD [address] [place] [address] 105 [place] [address] PCP - General Pediatrics 06/05/18 04/25/22 No Pcp, Pcp PCP - General 06/08/22 07/19/22 Guadalupe Mcbride MD PCP - General Family Medicine 07/20/22 11/01/23 Sena Dominguez PA [address] [place] [address] [place] [address] PCP - BRADY Physician Asphalt Mixer 11/02/23 Levy Barry MD [address] [place] [address] [place] [address] PCP - General Family Medicine 12/20/23 documented as of this encounter
--- OUTSIDE RECORDS SUMMARY | 2025-08-14 15:19 | XMS_ITS | Encounter Summary ---
Author Organization [facility] work ([facility]) Address [address] [place] [address] Care Team Providers Care Integrated Circuit Ic Layout Designer Name Role Phone Meme Steel MD Primary Care Provider [phone] Pcp, Pcp Primary Care Provider Unavailabl Guadalupe Bardales MD Primary Care Provider [phone] Sena Dominguez Unavailable Levy Barry MD Primary Care Provider Unavailab le Source Comments The information that you have received may contain highly confidential and/or federally protected health information. This information has been disclosed to you from records protected by [facility]. The law prohibits [...] the sender immediately.[facility] ([facility]) Encounter Details Date Type Department Care Team (Late st Contact Info) Description 04/12/2005 Historical Note [facility] Cardeas [employer] System Devyn Vásquez MD [address] [place] [address] [phone] Social History Tobacco Use Types Packs/Day Years [...] - [facility] [address] [facility] [address] [place] [phone] Brenda Clay MD [address] [facility] [address] [place] [address] 04/15/2026 10:00 AM EDT Office Visit LEATHA [facility] at [facility] + [facility] [address] [facility] [address] [place] [address] Sena Dominguez PA [address] [facility] [place] [address] documented as of this encounter Visit Diagnoses Not on filedocumented in this encounter Care Teams Integrated Circuit Ic Layout Designer Relationship Specialty Start Date End Date Meme Steel MD [address] [place] [address] 105 [place] [address] PCP - General Pediatrics 06/05/18 04/25/22 No Pcp, Pcp PCP - General 06/08/22 07/19/22 Guadalupe Mcbride MD PCP - General Family Medicine 07/20/22 11/01/23 Sena Dominguez PA [address] [place] [address] [place] [address] PCP - BRADY Physician Elevated Guard 11/02/23 Levy Barry MD [address] [place] [address] [place] [address] PCP - General Family Medicine 12/20/23 documented as of this encounter
--- OUTSIDE RECORDS SUMMARY | 2025-08-14 15:19 | XMS_ITS | Encounter Summary ---
Author Organization [facility] work ([facility]) Address [address] [place] [address] Care Team Providers Care Conduit Helper Name Role Phone Meme Steel MD Primary Care Provider [phone] Pcp, Pcp Primary Care Provider Unavailabl Guadalupe Bardales MD Primary Care Provider [phone] Sena Dominguez Unavailable [phone] Levy Barry MD Primary Care Provider Unavailab le Source Comments The information that you have received may contain highly confidential and/or federally protected health information. This information has been disclosed to you from records protected by [facility]. The law prohibits you from making [...] error, please contact the sender immediately.[facility] ([facility]) Encounter Details Date Type Department Care Team (Late st Contact Info) Description 2004 Historical Note [facility] ZeaVision System Devyn Vásquez MD [address] [place] [address] [phone] Social History Tobacco Use Types Packs/Day Years [...] LEATHA CARRILLO - [facility] at [facility] [address] [facility] [address] [place] [phone] Brenda Clay MD [address] [facility] [address] [place] [address] 04/15/2026 10:00 AM EDT Office Visit LEATHA [facility] at [facility] + [facility] [address] [facility] [address] [place] [address] Sena Dominguez PA [address] [facility] [place] [address] documented as of this encounter Visit Diagnoses Not on filedocumented in this encounter Care Teams Conduit Helper Relationship Specialty Start Date End Date Meme Steel MD [address] [place] [address] 105 [place] [address] PCP - General Pediatrics 06/05/18 04/25/22 No Pcp, Pcp PCP - General 06/08/22 07/19/22 Guadalupe Mcbride MD PCP - General Family Medicine 07/20/22 11/01/23 Sena Dominguez PA [address] [place] [address] [place] [address] PCP - BRADY Physician Manager Of Tires Sales 11/02/23 Levy Barry MD [address] [place] [address] [place] [address] PCP - General Family Medicine 12/20/23 documented as of this encounter
--- OUTSIDE RECORDS SUMMARY | 2025-08-14 15:19 | XMS_ITS | Encounter Summary ---
Author Organization [facility] work ([facility]) Address [address] [place] [address] Care Team Providers Care Monogram Machine Operator Name Role Phone Meme Steel MD Primary Care Provider [phone] Pcp, Pcp Primary Care Provider Unavailabl Guadalupe Bardales MD Primary Care Provider [phone] Sena Dominguez Unavailable [phone] Levy Barry MD Primary Care Provider Unavailab le Source Comments The information that you have received may contain highly confidential and/or federally protected health information. This information has been disclosed to you from records protected by [facility]. The [...] sender immediately.[facility] ([facility]) Encounter Details Date Type Department Care Team (Late st Contact Info) Description 03/02/2005 Historical Note [facility] Smart Holograms System Devyn Vásquez MD [address] [place] [address] [phone] Social History Tobacco Use Types Packs/Day Years [...] CARRILLO - [facility] at [facility] [address] [facility] [address] [place] [phone] Brenda Clay MD [address] [facility] [address] [place] [address] 04/15/2026 10:00 AM EDT Office Visit [facility]HA [facility] at [facility] + [facility] [address] [facility] [address] [place] [address] Sena Dominguez PA [address] [facility] [place] [address] documented as of this encounter Visit Diagnoses Not on filedocumented in this encounter Care Teams Monogram Machine Operator Relationship Specialty Start Date End Date Meme Steel MD [address] [place] [address] 105 [place] [address] PCP - General Pediatrics 06/05/18 04/25/22 No Pcp, Pcp PCP - General 06/08/22 07/19/22 Guadalupe Mcbride MD PCP - General Family Medicine 07/20/22 11/01/23 Sena Dominguez PA [address] [place] [address] [place] [address] PCP - BRADY Physician Extractor Tender Raw Stock 11/02/23 Levy Barry MD [address] [place] [address] [place] [address] PCP - General Family Medicine 12/20/23 documented as of this encounter
--- OUTSIDE RECORDS SUMMARY | 2025-08-14 15:19 | XMS_ITS | Encounter Summary ---
Author Organization [facility] work ([facility]) Address [address] [place] [address] Care Team Providers Care Pharmacy Technician Program Director Name Role Phone Meme Steel MD Primary Care Provider [phone] Pcp, Pcp Primary Care Provider Unavailabl Guadalupe Bardales MD Primary Care Provider [phone] Sena Dominguez Unavailable [phone] Levy Barry MD Primary Care Provider Unavailab le Source Comments The information that you have received may contain highly confidential and/or federally protected health information. This information has been disclosed to you from records protected by [facility]. The law prohibits you from [...] contact the sender immediately.[facility] ([facility]) Encounter Details Date Type Department Care Team (Late st Contact Info) Description 11/27/2015 Historical Note [facility] Wevebob System Devyn Vásquez MD [address] [place] [address] [phone] Social History Tobacco Use Types Packs/Day Years [...] Visit LEATHA CARRILLO - [facility] [address] [facility] [address] [place] [phone] Brenda Clay MD [address] [facility] [address] [place] [address] 04/15/2026 10:00 AM EDT Office Visit LEATHA [facility] at [facility] + [facility] [address] [facility] [address] [place] [address] Sena Dominguez PA [address] [facility] [place] [address] documented as of this encounter Visit Diagnoses Not on filedocumented in this encounter Care Teams Pharmacy Technician Program Director Relationship Specialty Start Date End Date Meme Steel MD [address] [place] [address] 105 [place] [address] PCP - General Pediatrics 06/05/18 04/25/22 No Pcp, Pcp PCP - General 06/08/22 07/19/22 Guadalupe Mcbride MD PCP - General Family Medicine 07/20/22 11/01/23 Sena Dominguez PA [address] [place] [address] [place] [address] PCP - BRADY Physician Corn Detasseler Machine Operator 11/02/23 Levy Barry MD [address] [place] [address] [place] [address] PCP - General Family Medicine 12/20/23 documented as of this encounter
--- OUTSIDE RECORDS SUMMARY | 2025-08-14 15:19 | XMS_ITS | Encounter Summary ---
Author Organization [facility] work ([facility]) Address [address] [place] [address] Care Team Providers Care Member Service Representative Name Role Phone Meme Steel MD Primary Care Provider [phone] Pcp, Pcp Primary Care Provider Unavailabl Guadalupe Bardales MD Primary Care Provider Sena Dominguez Unavailable [phone] Levy Barry MD Primary Care Provider Unavailab le Source Comments The information that you have received may contain highly confidential and/or federally protected health information. This information has been disclosed to you from records protected by [facility]. The law prohibits you from [...] the sender immediately.[facility] ([facility]) Encounter Details Date Type Department Care Team (Late st Contact Info) Description 10/06/2015 Historical Note [facility] Amazon System Devyn Vásquez MD [address] [place] [address] [phone] Social History Tobacco Use Types Packs/Day Years [...] Visit LEATHA CARRILLO - [facility] [address] [facility] [address] [place] [phone] Brenda Clay MD [address] [facility] [address] [place] [address] 04/15/2026 10:00 AM EDT Office Visit LEATHA Primary [facility] at [facility] + [facility] [address] [facility] [address] [place] [address] Sena Dominguez PA [address] [facility] [place] [address] documented as of this encounter Visit Diagnoses Not on filedocumented in this encounter Care Teams Member Service Representative Relationship Specialty Start Date End Date Meme Steel MD [address] [place] [address] 105 [place] [address] PCP - General Pediatrics 06/05/18 04/25/22 No Pcp, Pcp PCP - General 06/08/22 07/19/22 Guadalupe Mcbride MD PCP - General Family Medicine 07/20/22 11/01/23 Sena Dmoinguez PA [address] [place] [address] [place] [address] PCP - BRADY Physician Manager Advertising 11/02/23 Levy Barry MD [address] [place] [address] [place] [address] PCP - General Family Medicine 12/20/23 documented as of this encounter
--- OUTSIDE RECORDS SUMMARY | 2025-08-14 15:19 | XMS_ITS | Encounter Summary ---
Author Organization [facility] work ([facility]) Address [address] [place] [address] Care Team Providers Care Cold Rolling Coordinator Name Role Phone Meme Steel MD Primary Care Provider [phone] Pcp, Pcp Primary Care Provider Unavailabl Guadalupe Bardales MD Primary Care Provider [phone] Sena Dominguez Unavailable [phone] Levy Barry MD Primary Care Provider Unavailab le Source Comments The information that you have received may contain highly confidential and/or federally protected health information. This information has been disclosed to you from records protected by [facility]. The law prohibits you from [...] error, please contact the sender immediately.[facility] ([facility]) Encounter Details Date Type Department Care Team (Late st Contact Info) Description 05/28/2015 Historical Note [facility] Camera360 System Devyn Vásquez MD [address] [place] [address] [phone] Social History Tobacco Use Types Packs/Day Years [...] CARRILLO - [facility] [address] [facility] [address] [place] [phone] Brenda Clay MD [address] [facility] [address] [place] [phone] 04/15/2026 10:00 AM EDT Office Visit LEATHA Primary [facility] at [facility] + [facility] [address] [facility] [address] [place] [address] Sena Dominguez PA [address] [facility] [place] [address] documented as of this encounter Visit Diagnoses Not on filedocumented in this encounter Care Teams Cold Rolling Coordinator Relationship Specialty Start Date End Date Meme Steel MD [address] [place] [address] 105 [place] [address] PCP - General Pediatrics 06/05/18 04/25/22 No Pcp, Pcp PCP - General 06/08/22 07/19/22 Guadalupe Mcbride MD PCP - General Family Medicine 07/20/22 11/01/23 Sena Dominguez PA [address] [place] [address] [place] [address] PCP - BRADY Physician Employment Advisor 11/02/23 Levy Barry MD [address] [place] [address] [place] [address] PCP - General Family Medicine 12/20/23 documented as of this encounter
--- OUTSIDE RECORDS SUMMARY | 2025-08-14 15:19 | XMS_ITS | Encounter Summary ---
Author Organization [facility] work ([facility]) Address [address] [place] [address] Care Team Providers Care Chemist Proteins Name Role Phone Meme Steel MD Primary Care Provider [phone] Pcp, Pcp Primary Care Provider Unavailabl Guadalupe Bardales MD Primary Care Provider [phone] Sena Dominguez Unavailable [phone] Levy Barry MD Primary Care Provider Unavailab le Source Comments The information that you have received may contain highly confidential and/or federally protected health information. This information has been disclosed to you from records protected by [facility]. The law [...] contact the sender immediately.[facility] ([facility]) Encounter Details Date Type Department Care Team (Late st Contact Info) Description 10/01/2008 Historical Note [facility] Renewable Energy [employer] System Devyn Vásquez MD [address] [place] [address] [phone] Social History Tobacco Use Types Packs/Day Years [...] LEATHA CARRILLO - [facility] [address] [facility] [address] [place] [phone] Brenda Clay MD [address] [facility] [address] [place] [phone] 04/15/2026 10:00 AM EDT Office Visit LEATHA [facility] at [facility] [address] [facility] [address] [place] [address] Sena Dominguez PA [address] [facility] [place] [address] documented as of this encounter Visit Diagnoses Not on filedocumented in this encounter Care Teams Chemist Proteins Relationship Specialty Start Date End Date Meme Steel MD [address] [place] [address] 105 [place] [address] PCP - General Pediatrics 06/05/18 04/25/22 No Pcp, Pcp PCP - General 06/08/22 07/19/22 Guadalupe Mcbride MD PCP - General Family Medicine 07/20/22 11/01/23 Sena Dominguez PA [address] [place] [address] [place] [address] PCP - BRADY Physician Snagger 11/02/23 Levy Barry MD [address] [place] [address] [place] [address] PCP - General Family Medicine 12/20/23 documented as of this encounter
--- OUTSIDE RECORDS SUMMARY | 2025-08-14 15:19 | XMS_ITS | Encounter Summary ---
Author Organization [facility] work ([facility]) Address [address] [place] [address] Care Team Providers Care Dog Behaviorist Name Role Phone Meme Steel MD Primary Care Provider [phone] No Pcp, Pcp Primary Care Provider Unavailabl Guadalupe Bardales MD Primary Care Provider [phone] Sena Dominguez Unavailable [phone] Levy Barry MD Primary Care Provider Unavailab le Source Comments The information that you have received may contain highly confidential and/or federally protected health information. This information has been disclosed to you from records protected by [facility]. The law prohibits you from [...] the sender immediately.[facility] ([facility]) Encounter Details Date Type Department Care Team (Late st Contact Info) Description 10/02/2008 Historical Note [facility] Wukong.[employer] System Devyn Vásquez MD [address] [place] [address] [phone] Social History Tobacco Use Types Packs/Day Years [...] CARRILLO - [facility] [address] [facility] [address] [place] [phone] Brenda Clay MD [address] [facility] [address] [place] [address] 04/15/2026 10:00 AM EDT Office Visit LEATHA Primary [facility] at [facility] + [facility] [address] [facility] [address] [place] [address] Sena Dominguez PA [address] [facility] [place] [address] documented as of this encounter Visit Diagnoses Not on filedocumented in this encounter Care Teams Dog Behaviorist Relationship Specialty Start Date End Date Mmee Steel MD [address] [place] [address] 105 [place] [address] PCP - General Pediatrics 06/05/18 04/25/22 No Pcp, Pcp PCP - General 06/08/22 07/19/22 Guadalupe Mcbride MD PCP - General Family Medicine 07/20/22 11/01/23 Sena Dominguez PA [address] [place] [address] [place] [address] PCP - BRADY Physician Ui Lead Developer 11/02/23 Levy Barry MD [address] [place] [address] [place] [address] PCP - General Family Medicine 12/20/23 documented as of this encounter
--- OUTSIDE RECORDS SUMMARY | 2025-08-14 15:19 | XMS_ITS | Encounter Summary ---
Author Organization [facility] work ([facility]) Address [address] [place] [address] Care Team Providers Care Foundry Worker Apprentice Name Role Phone Meme Steel MD Primary Care Provider [phone] Pcp, Pcp Primary Care Provider Unavailabl Guadalupe Bardales MD Primary Care Provider [phone] Sena Dominguez Unavailable [phone] Levy Barry MD Primary Care Provider Unavailab le Source Comments The information that you have received may contain highly confidential and/or federally protected health information. This information has been disclosed to you from records protected by [facility]. The law prohibits [...] please contact the sender immediately.[facility] ([facility]) Encounter Details Date Type Department Care Team (Late st Contact Info) Description 10/05/2015 Historical Note [facility] Devyn Vásquez MD [address] [place] [address] [phone] Social History Tobacco Use Types Packs/Day Years [...] LEATHA CARRILLO - [facility] [address] [facility] [address] [place] [phone] Brenda Clay MD [address] [facility] [address] [place] [phone] 04/15/2026 10:00 AM EDT Office Visit LEATHA [facility] at [facility] + [facility] [address] [facility] [address] [place] [address] Sena Dominguez PA [address] [facility] [place] [address] documented as of this encounter Visit Diagnoses Not on filedocumented in this encounter Care Teams Foundry Worker Apprentice Relationship Specialty Start Date End Date Meme Steel MD [address] [place] [address] 105 [place] [address] PCP - General Pediatrics 06/05/18 04/25/22 No Pcp, Pcp PCP - General 06/08/22 07/19/22 Guadalupe Mcbride MD PCP - General Family Medicine 07/20/22 11/01/23 Sena Dominguez PA [address] [place] [address] [place] [address] PCP - BRADY Physician Plant Control Aide 11/02/23 Levy Barry MD [address] [place] [address] [place] [address] PCP - General Family Medicine 12/20/23 documented as of this encounter
--- OUTSIDE RECORDS SUMMARY | 2025-08-14 15:19 | XMS_ITS | Encounter Summary ---
Author Organization [facility] work ([facility]) Address [address] [place] [address] Care Team Providers Care Facility Technician Name Role Phone Meme Steel MD Primary Care Provider [phone] Pcp, Pcp Primary Care Provider Unavailabl Guadalupe Bardales MD Primary Care Provider [phone] Sena Dominguez Unavailable [phone] Levy Barry MD Primary Care Provider Unavailab le Source Comments The information that you have received may contain highly confidential and/or federally protected health information. This information has been disclosed to you from records protected by [facility]. The law prohibits you from [...] contact the sender immediately.[facility] ([facility]) Encounter Details Date Type Department Care Team (Late st Contact Info) Description 2004 Historical Note SVMG Luxola System Devyn Vásquez MD [address] [place] [address] [phone] Social History Tobacco Use Types Packs/Day Years [...] [facility] [address] [facility] [address] [place] [phone] Brenda Clay MD [address] [facility] [address] [place] [address] 04/15/2026 10:00 AM EDT Office Visit [facility] + [facility] [address] [place] [address] Sena Dominguez PA [address] [place] [address] documented as of this encounter Visit Diagnoses Not on filedocumented in this encounter Care Teams Facility Technician Relationship Specialty Start Date End Date Meme Steel MD [address] [place] [address] 105 [place] [address] PCP - General Pediatrics 06/05/18 04/25/22 No Pcp, Pcp PCP - General 06/08/22 07/19/22 Guadalupe Mcbride MD PCP - General Family Medicine 07/20/22 11/01/23 Sena Dominguez PA [address] [place] [address] [place] [address] PCP - BRADY Physician Biomedical Equipment Tech 11/02/23 Levy Barry MD [address] [place] [address] [place] [address] PCP - General Family Medicine 12/20/23 documented as of this encounter
--- OUTSIDE RECORDS SUMMARY | 2025-08-14 15:19 | XMS_ITS | Encounter Summary ---
Author Organization [facility] work ([facility]) Address [address] [place] [address] Care Team Providers Care Molding Machine Setter Name Role Phone Meme Steel MD Primary Care Provider [phone] Pcp, Pcp Primary Care Provider Unavailabl Guadalupe Bardales MD Primary Care Provider [phone] Sena Dominguez Unavailable [phone] Levy Barry MD Primary Care Provider Unavailab le Source Comments The information that you have received may contain highly confidential and/or federally protected health information. This information has been disclosed to you from records protected by [facility]. The law prohibits you from [...] contact the sender immediately.[facility] ([facility]) Encounter Details Date Type Department Care Team (Late st Contact Info) Description 09/15/2015 Historical Note SVMG Routezilla System Devyn Vásquez MD [address] [place] [address] [id number] Social History Tobacco Use Types Packs/Day Years [...] Office Visit LEATHA CARRILLO - [facility] [address] [facility] [address] [place] [phone] Brenda Clay MD [address] [facility] [address] [place] [address] 04/15/2026 10:00 AM EDT Office Visit [facility] at [facility] + [facility] [address] [place] [address] Sena Dominguez PA [address] [facility] [place] [address] documented as of this encounter Visit Diagnoses Not on filedocumented in this encounter Care Teams Molding Machine Setter Relationship Specialty Start Date End Date Meme Steel MD [address] [place] [address] 105 [place] [address] PCP - General Pediatrics 06/05/18 04/25/22 No Pcp, Pcp PCP - General 06/08/22 07/19/22 Guadalupe Mcbride MD PCP - General Family Medicine 07/20/22 11/01/23 Sena Dominguez PA [address] [place] [address] [place] [address] PCP - BRADY Physician Operations Systems Specialist 11/02/23 Levy Barry MD [address] [place] [address] [place] [address] PCP - General Family Medicine 12/20/23 documented as of this encounter
--- OUTSIDE RECORDS SUMMARY | 2025-08-14 15:19 | XMS_ITS | Encounter Summary ---
Author Organization [facility] work ([facility]) Address [address] [place] [address] Care Team Providers Care Analytics Associate Name Role Phone Meme Steel MD Primary Care Provider No Pcp, Pcp Primary Care Provider Unavailabl Guadalupe Bardales MD Primary Care Provider [phone] Sena Dominguez Unavailable [phone] Levy Barry MD Primary Care Provider Unavailab le Source Comments The information that you have received may contain highly confidential and/or federally protected health information. This information has been disclosed to you from records protected by [facility]. The law prohibits you [...] error, please contact the sender immediately.[facility] ([facility]) Encounter Details Date Type Department Care Team (Late st Contact Info) Description 08/12/2008 Historical Note [facility]G AudioSnaps System Devyn Vásquez MD [address] [place] [address] [phone] Social History Tobacco Use Types Packs/Day Years [...] LEATHA CARRILLO - [facility] [address] [facility] [address] [place] [phone] Brenda Clay MD [address] [facility] [address] [place] [address] 04/15/2026 10:00 AM EDT Office Visit [facility] at [facility] + [facility] [address] [facility] [address] [facility] [address] [place] [address] Sena Dominguez PA [address] [facility] [place] [address] documented as of this encounter Visit Diagnoses Not on filedocumented in this encounter Care Teams Analytics Associate Relationship Specialty Start Date End Date Meme Steel MD [address] [place] [address] 105 [place] [address] PCP - General Pediatrics 06/05/18 04/25/22 No Pcp, Pcp PCP - General 06/08/22 07/19/22 Guadalupe Mcbride MD PCP - General Family Medicine 07/20/22 11/01/23 Sena Dominguez PA [address] [place] [address] [place] [address] PCP - BRADY Physician Stock Worker 11/02/23 Levy Barry MD [address] [place] [address] [place] [address] PCP - General Family Medicine 12/20/23 documented as of this encounter
--- OUTSIDE RECORDS SUMMARY | 2025-08-14 15:19 | XMS_ITS | Encounter Summary ---
Author Organization [facility] work ([facility]) Address [address] [place] [address] Care Team Providers Care Solderer Torch Name Role Phone Meme Steel MD Primary Care Provider [phone] Pcp, Pcp Primary Care Provider Unavailabl Guadalupe Bardales MD Primary Care Provider [phone] Sena Dominguez Unavailable [phone] Levy Barry MD Primary Care Provider Unavailab le Source Comments The information that you have received may contain highly confidential and/or federally protected health information. This information has been disclosed to you from records protected by [facility]. The law prohibits [...] please contact the sender immediately.[facility] ([facility]) Encounter Details Date Type Department Care Team (Late st Contact Info) Description 12/31/2015 Historical Note SVMG [employer] System Devyn Vásquez MD [address] [place] [address] [phone] Social History Tobacco Use Types Packs/Day Years [...] CARRILLO - [facility] [address] [facility] [address] [facility] [address] [place] [phone] Brenda Clay MD [address] [facility] [address] [place] [address] 04/15/2026 10:00 AM EDT Office Visit [facility] + [facility] [address] [facility] [address] [place] [address] Sena Dominguez PA [address] [facility] [place] [address] documented as of this encounter Visit Diagnoses Not on filedocumented in this encounter Care Teams Solderer Torch Relationship Specialty Start Date End Date Meme Steel MD [address] [place] [address] 105 [place] [address] PCP - General Pediatrics 06/05/18 04/25/22 No Pcp, Pcp PCP - General 06/08/22 07/19/22 Guadalupe Mcbride MD PCP - General Family Medicine 07/20/22 11/01/23 Sena Dominguez PA [address] [place] [address] [place] [address] PCP - BRADY Physician Handle And Vent Machine Operator 11/02/23 Levy Barry MD [address] [place] [address] [place] [address] PCP - General Family Medicine 12/20/23 documented as of this encounter
--- OUTSIDE RECORDS SUMMARY | 2025-08-14 15:20 | XMS_ITS | Encounter Summary ---
Author Organization [facility] work ([facility]) Address [address] [place] [address] Care Team Providers Care Final Expense Agent Name Role Phone Meme Steel MD Primary Care Provider [phone] Pcp, Pcp Primary Care Provider Unavailabl Guadalupe Bardales MD Primary Care Provider [phone] Sena Dominguez Unavailable [phone] Levy Barry MD Primary Care Provider Unavailab le Source Comments The information that you have received may contain highly confidential and/or federally protected health information. This information has been disclosed to you from records protected by [facility]. The law prohibits you [...] please contact the sender immediately.[facility] ([facility]) Encounter Details Date Type Department Care Team (Late st Contact Info) Description 08/06/2009 Historical Note SVMG [employer] System Devyn Vásquez MD [address] [place] [address] [phone] Social History Tobacco Use Types Packs/Day Years [...] LEATHA CARRILLO - [facility] [address] [facility] [address] [place] [phone] Brenda Clay MD [address] [facility] [address] [place] [phone] 04/15/2026 10:00 AM EDT Office Visit [facility]HA [facility] at [facility] + [facility] [address] [facility] [address] [place] [address] Sena Dominguez PA [address] [facility] [place] [address] documented as of this encounter Visit Diagnoses Not on filedocumented in this encounter Care Teams Final Expense Agent Relationship Specialty Start Date End Date Meme Steel MD [address] [place] [address] 105 [place] [address] PCP - General Pediatrics 06/05/18 04/25/22 No Pcp, Pcp PCP - General 06/08/22 07/19/22 Guadalupe Mcbride MD PCP - General Family Medicine 07/20/22 11/01/23 Sena Dominguez PA [address] [place] [address] [place] [address] PCP - BRADY Physician Beam Builder 11/02/23 Levy Barry MD [address] [place] [address] [place] [address] PCP - General Family Medicine 12/20/23 documented as of this encounter
--- OUTSIDE RECORDS SUMMARY | 2025-08-14 15:20 | XMS_ITS | Encounter Summary ---
Author Organization [facility] work ([facility]) Address [address] [place] [address] Care Team Providers Care Railroad Watchman Name Role Phone Meme Steel MD Primary Care Provider [phone] Pcp, Pcp Primary Care Provider Unavailabl Guadalupe Bardales MD Primary Care Provider [phone] Sena Dominguez Unavailable [phone] Levy Barry MD Primary Care Provider Unavailab le Source Comments The information that you have received may contain highly confidential and/or federally protected health information. This information has been disclosed to you from records protected by [employer] [facility]. The law prohibits you [...] please contact the sender immediately.[facility] ([facility]) Encounter Details Date Type Department Care Team (Late st Contact Info) Description 02/18/2014 Historical Note SVMG PasswordBox System Devyn Vásquez MD [address] [place] [address] [phone] Social History Tobacco Use Types Packs/Day Years [...] CARRILLO - [facility] [address] [facility] [address] [place] [phone] Brenda Clay MD [address] [facility] [address] [place] [address] 04/15/2026 10:00 AM EDT Office Visit [facility] at [facility] + [facility] [address] [facility] [address] [place] [address] Sena Dominguez PA [address] [facility] [place] [address] documented as of this encounter Visit Diagnoses Not on filedocumented in this encounter Care Teams Railroad Watchman Relationship Specialty Start Date End Date Meme Steel MD [address] [place] [address] 105 [place] [address] PCP - General Pediatrics 06/05/18 04/25/22 No Pcp, Pcp PCP - General 06/08/22 07/19/22 Guadalupe Mcbride MD PCP - General Family Medicine 07/20/22 11/01/23 Sena Dominguez PA [address] [place] [address] [place] [address] PCP - BRADY Physician Iphone Developer 11/02/23 Levy Barry MD [address] [place] [address] [place] [address] PCP - General Family Medicine 12/20/23 documented as of this encounter
--- OUTSIDE RECORDS SUMMARY | 2025-08-14 15:20 | XMS_ITS | Encounter Summary ---
Author Organization [facility] work ([facility]) Address [address] [place] [address] Care Team Providers Care Electrocardiograph Technician Name Role Phone Meme Steel MD Primary Care Provider [phone] Pcp, Pcp Primary Care Provider Unavailabl Guadalupe Bardales MD Primary Care Provider [phone] eSna Dominguez Unavailable [phone] Levy Barry MD Primary Care Provider Unavailab le Source Comments The information that you have received may contain highly confidential and/or federally protected health information. This information has been disclosed to you from records protected by [facility]. The law prohibits you [...] the sender immediately.[facility] ([facility]) Encounter Details Date Type Department Care Team (Late st Contact Info) Description 04/08/2009 Historical Note SVMG URX System Devyn Vásquez MD [address] [place] [address] [phone] Social History Tobacco Use Types Packs/Day Years [...] LEATHA CARRILLO - [facility] [address] [facility] [address] [place] [phone] Brenda Clay MD [address] [facility] [address] [place] [address] 04/15/2026 10:00 AM EDT Office Visit LEATHA [facility] at [facility] + [facility] [address] [facility] [address] [place] [address] Sena Dominguez PA [address] [facility] [place] [address] documented as of this encounter Visit Diagnoses Not on filedocumented in this encounter Care Teams Electrocardiograph Technician Relationship Specialty Start Date End Date Meme Steel MD [address] [place] [address] 105 [place] [address] PCP - General Pediatrics 06/05/18 04/25/22 No Pcp, Pcp PCP - General 06/08/22 07/19/22 Guadalupe Mcbride MD PCP - General Family Medicine 07/20/22 11/01/23 Sena Dominguez PA [address] [place] [address] [place] [address] PCP - BRADY Physician Biomedical Instrument Technician 11/02/23 Levy Barry MD [address] [place] [address] [place] [address] PCP - General Family Medicine 12/20/23 documented as of this encounter
--- OUTSIDE RECORDS SUMMARY | 2025-08-14 15:20 | XMS_ITS | Encounter Summary ---
Author Organization [facility] work ([facility]) Address [address] [place] [address] Care Team Providers Care Program Schedule Clerk Name Role Phone Meme Steel MD Primary Care Provider [phone] No Pcp, Pcp Primary Care Provider Unavailabl Guadalupe Bardales MD Primary Care Provider [phone] Sena Dominguez Unavailable [phone] Levy Barry MD Primary Care Provider Unavailab le Source Comments The information that you have received may contain highly confidential and/or federally protected health information. This information has been disclosed to you from records protected by [facility]. The law prohibits you from [...] please contact the sender immediately.[facility] ([facility]) Encounter Details Date Type Department Care Team (Late st Contact Info) Description 01/03/2008 Historical Note SVMG Ki[employer] System Devyn Vásquez MD [address] [place] [address] [id number] Social History Tobacco Use Types Packs/Day Years [...] CARRILLO - [facility] [address] [facility] [address] [place] [phone] Brenda Clay MD [address] [facility] [address] [place] [address] 04/15/2026 10:00 AM EDT Office Visit [facility]HA [facility] at [facility] + [facility] [address] [facility] [address] [place] [address] Sena Dominguez PA [address] [facility] [place] [address] documented as of this encounter Visit Diagnoses Not on filedocumented in this encounter Care Teams Program Schedule Clerk Relationship Specialty Start Date End Date Meme Steel MD [address] [place] [address] 105 [place] [address] PCP - General Pediatrics 06/05/18 04/25/22 No Pcp, Pcp PCP - General 06/08/22 07/19/22 Guadalupe Mcbride MD PCP - General Family Medicine 07/20/22 11/01/23 Sena Dominguez PA [address] [place] [address] [place] [address] PCP - BRADY Physician Bandage Maker 11/02/23 Levy Barry MD [address] [place] [address] [place] [address] PCP - General Family Medicine 12/20/23 documented as of this encounter
--- OUTSIDE RECORDS SUMMARY | 2025-08-14 15:20 | XMS_ITS | Encounter Summary ---
Author Organization [facility] work ([facility]) Address [address] [place] [address] Care Team Providers Care Landscaping Specialist Name Role Phone Meme Steel MD Primary Care Provider [phone] No Pcp, Pcp Primary Care Provider Unavailabl Guadalupe Bardales MD Primary Care Provider [phone] Sena Dominguez Unavailable [phone] Levy Barry MD Primary Care Provider Unavailab le Source Comments The information that you have received may contain highly confidential and/or federally protected health information. This information has been disclosed to you from records protected by [facility]. The law prohibits you [...] the sender immediately.[facility] ([facility]) Encounter Details Date Type Department Care Team (Late st Contact Info) Description 08/21/2014 Historical Note SVMG Negev[employer] System Devyn Vásquez MD [address] [place] [address] [phone] Social History Tobacco Use Types Packs/Day [...] LEATHA CARRILLO - [facility] [address] [facility] [address] [place] [phone] Brenda Clay MD [address] [facility] [address] [place] [address] 04/15/2026 10:00 AM EDT Office Visit [facility]HA [facility] + [facility] [address] [facility] [address] [place] [address] Sena Dominguez PA [address] [facility] [place] [address] documented as of this encounter Visit Diagnoses Not on filedocumented in this encounter Care Teams Landscaping Specialist Relationship Specialty Start Date End Date Meme Steel MD [address] [place] [address] 105 [place] [address] PCP - General Pediatrics 06/05/18 04/25/22 No Pcp, Pcp PCP - General 06/08/22 07/19/22 Guadalupe Mcbride MD PCP - General Family Medicine 07/20/22 11/01/23 Sena Dominguez PA [address] [place] [address] [place] [address] PCP - BRADY Physician Outpatient Surgery Rn 11/02/23 Levy Barry MD [address] [place] [address] [place] [address] PCP - General Family Medicine 12/20/23 documented as of this encounter
--- OUTSIDE RECORDS SUMMARY | 2025-08-14 15:20 | XMS_ITS | Encounter Summary ---
Author Organization [facility] work ([facility]) Address [address] [place] [address] Care Team Providers Care Surgical Elastic Knitter Hand Frame Name Role Phone Meme Steel MD Primary Care Provider [phone] No Pcp, Pcp Primary Care Provider Unavailabl Guadalupe Bardales MD Primary Care Provider [phone] Sena Dominguez Unavailable [phone] Levy Barry MD Primary Care Provider Unavailab le Source Comments The information that you have received may contain highly confidential and/or federally protected health information. This information has been disclosed to you from records protected by [facility]. The law prohibits you from [...] Contact Info) Description 03/03/2005 Historical Note SVMG Animoto System Devyn Vásquez MD [address] [place] [address] [phone] Social History Tobacco Use Types Packs/Day Years [...] Visit LEATHA CARRILLO - [facility] [address] [facility] [address] [place] [phone] Brenda Clay MD [address] [facility] [address] [place] [address] 04/15/2026 10:00 AM EDT Office Visit LEATHA [facility] at [facility] + [facility] [address] [facility] [address] [place] [address] Sena Dominguez PA [address] [facility] [place] [address] documented as of this encounter Visit Diagnoses Not on filedocumented in this encounter Care Teams Surgical Elastic Knitter Hand Frame Relationship Specialty Start Date End Date Meme Steel MD [address] [place] [address] 105 [place] [address] PCP - General Pediatrics 06/05/18 04/25/22 No Pcp, Pcp PCP - General 06/08/22 07/19/22 Guadalupe Mcbride MD PCP - General Family Medicine 07/20/22 11/01/23 Sena Dominguez PA [address] [place] [address] [place] [address] PCP - BRADY Physician Journeyman Molder 11/02/23 Levy Barry MD [address] [place] [address] [place] [address] PCP - General Family Medicine 12/20/23 documented as of this encounter
--- OUTSIDE RECORDS SUMMARY | 2025-08-14 15:20 | XMS_ITS | Encounter Summary ---
Author Organization [facility] work ([facility]) Address [address] [place] [address] Care Team Providers Care Jackerman Name Role Phone Meme Steel MD Primary Care Provider [phone] No Pcp, Pcp Primary Care Provider Unavailabl Guadalupe Bardales MD Primary Care Provider [phone] Sena Dominguez Unavailable [phone] Levy Barry MD Primary Care Provider Unavailab le Source Comments The information that you have received may contain highly confidential and/or federally protected health information. This information has been disclosed to you from records protected by [facility]. The law prohibits you from [...] please contact the sender immediately.[facility] ([facility]) Encounter Details Date Type Department Care Team (Late st Contact Info) Description 10/02/2007 Historical Note [facility] [employer] System Devyn Vásquez MD [address] [place] [address] [phone] Social History Tobacco Use Types Packs/Day Years [...] CARRILLO - [facility] [address] [facility] [facility] [address] [place] [phone] Brenda Clay MD [address] [facility] [address] [place] [phone] 04/15/2026 10:00 AM EDT Office Visit LEATHA Primary [facility] at [facility] [place] + [facility] [address] [facility] [address] [place] [address] Sena Dominguez PA [address] [facility] [place] [address] documented as of this encounter Visit Diagnoses Not on filedocumented in this encounter Care Teams Jackerman Relationship Specialty Start Date End Date Meme Steel MD [address] [place] [address] [place] [address] PCP - General Pediatrics 06/05/18 04/25/22 No Pcp, Pcp PCP - General 06/08/22 07/19/22 Guadalupe Mcbride MD PCP - General Family Medicine 07/20/22 11/01/23 Sena Dominguez PA [address] [place] [address] [place] [address] PCP - BRADY Physician Quality Assurance Group Leader 11/02/23 Levy Barry MD [address] [place] [address] [place] [address] PCP - General Family Medicine 12/20/23 documented as of this encounter
--- OUTSIDE RECORDS SUMMARY | 2025-08-14 15:20 | XMS_ITS | Encounter Summary ---
Author Organization [facility] work ([facility]) Address [address] [place] [address] Care Team Providers Care Construction Driller Name Role Phone Meme Steel MD Primary Care Provider [phone] No Pcp, Pcp Primary Care Provider Unavailabl Guadalupe Bardales MD Primary Care Provider [phone] Sena Dominguez Unavailable [phone] Levy Barry MD Primary Care Provider Unavailab le Source Comments The information that you have received may contain highly confidential and/or federally protected health information. This information has been disclosed to you from records protected by [facility]. The law prohibits you from [...] please contact the sender immediately.[facility] ([facility]) Encounter Details Date Type Department Care Team (Late st Contact Info) Description 06/18/2014 Historical Note [facility] [employer] System Devyn Vásquez MD [address] [place] [address] [phone] Social History Tobacco Use Types Packs/Day Years [...] CARRILLO - [facility] [address] [facility] [address] [place] [phone] Brenda Clay MD [address] [facility] [address] [place] [address] 04/15/2026 10:00 AM EDT Office Visit LEATHA Primary Care at [facility] + [facility] [address] [facility] [address] [place] [address] Sena Dominguez PA [address] [facility] [place] [address] documented as of this encounter Visit Diagnoses Not on filedocumented in this encounter Care Teams Construction Driller Relationship Specialty Start Date End Date Meme Steel MD [address] [place] [address] 105 [place] [address] PCP - General Pediatrics 06/05/18 04/25/22 No Pcp, Pcp PCP - General 06/08/22 07/19/22 Guadalupe Mcbride MD PCP - General Family Medicine 07/20/22 11/01/23 Sena Dominguez PA [address] [place] [address] [place] [address] PCP - BRADY Physician Tailor Garment Fitter 11/02/23 Levy Barry MD [address] [place] [address] [place] [address] PCP - General Family Medicine 12/20/23 documented as of this encounter
--- OUTSIDE RECORDS SUMMARY | 2025-08-14 15:20 | XMS_ITS | Encounter Summary ---
Author Organization [facility] work ([facility]) Address [address] [place] [address] Care Team Providers Care Chief Development Officer Name Role Phone Meme Steel MD Primary Care Provider [phone] Pcp, Pcp Primary Care Provider Unavailabl Guadalupe Bardales MD Primary Care Provider [phone] Sena Dominguez Unavailable [phone] Levy Barry MD Primary Care Provider Unavailab le Source Comments The information that you have received may contain highly confidential and/or federally protected health information. This information has been disclosed to you from records protected by [email or web address]. The law prohibits you [...] contact the sender immediately.[facility] ([facility]) Encounter Details Date Type Department Care Team (Late st Contact Info) Description 06/14/2008 Historical Note [facility] [employer] System Devyn Vásquez MD [address] [place] [address] [phone] Social History Tobacco Use Types Packs/Day Years [...] CARRILLO - [facility] [address] [facility] [address] [place] [phone] Brenda Clay MD [address] [facility] [address] [place] [address] 04/15/2026 10:00 AM EDT Office Visit LEATHA Primary Care at [facility] + [facility] [address] [facility] [address] [place] [address] Sena Dominguez PA [address] [facility] [place] [address] documented as of this encounter Visit Diagnoses Not on filedocumented in this encounter Care Teams Chief Development Officer Relationship Specialty Start Date End Date Meme Steel MD [address] [place] [address] 105 [place] [address] PCP - General Pediatrics 06/05/18 04/25/22 No Pcp, Pcp PCP - General 06/08/22 07/19/22 Guadalupe Mcbride MD PCP - General Family Medicine 07/20/22 11/01/23 Sena Dominguez PA [address] [place] [address] [place] [address] PCP - BRADY Physician Fagot Heater Helper 11/02/23 Levy Barry MD [address] [place] [address] [place] [address] PCP - General Family Medicine 12/20/23 documented as of this encounter
--- OUTSIDE RECORDS SUMMARY | 2025-08-14 15:20 | XMS_ITS | Encounter Summary ---
Author Organization [facility] work ([facility]) Address [address] [place] [address] Care Team Providers Care Wet Inspector Optical Glass Name Role Phone Meme Steel MD Primary Care Provider [phone] Pcp, Pcp Primary Care Provider Unavailabl Guadalupe Bardales MD Primary Care Provider [phone] Sena Dominguez Unavailable [phone] Levy Barry MD Primary Care Provider Unavailab le Source Comments The information that you have received may contain highly confidential and/or federally protected health information. This information has been disclosed to you from records protected by [facility]. The law prohibits you from [...] the sender immediately.[facility] ([facility]) Encounter Details Date Type Department Care Team (Late st Contact Info) Description 03/02/2005 Historical Note [facility] [employer] System Devyn Vásquez MD [address] [place] [address] [phone] Social History Tobacco Use Types Packs/Day Years [...] CARRILLO - [facility] [address] [facility] [address] [place] [phone] Brenda Clay MD [address] [facility] [address] [place] [address] 04/15/2026 10:00 AM EDT Office Visit LEATHA Primary Care at [facility] [address] [address] [place] [address] Sena Dominguez PA [address] [facility] [place] [address] documented as of this encounter Visit Diagnoses Not on filedocumented in this encounter Care Teams Wet Inspector Optical Glass Relationship Specialty Start Date End Date Meme Steel MD [address] [place] [address] 105 [place] [address] PCP - General Pediatrics 06/05/18 04/25/22 No Pcp, Pcp PCP - General 06/08/22 07/19/22 Guadalupe Mcbride MD PCP - General Family Medicine 07/20/22 11/01/23 Sena Dominguez PA [address] [place] [address] [place] [address] PCP - BRADY Physician Mandate Retail Service Merchandiser 11/02/23 Levy Barry MD [address] [place] [address] [place] [address] PCP - General Family Medicine 12/20/23 documented as of this encounter
--- OUTSIDE RECORDS SUMMARY | 2025-08-14 15:20 | XMS_ITS | Encounter Summary ---
Author Organization [facility] work ([facility]) Address [address] [place] [address] Care Team Providers Care Private Investigator Name Role Phone Meme Steel MD Primary Care Provider No Pcp, Pcp Primary Care Provider Unavailabl Guadalupe Bardales MD Primary Care Provider [phone] Sena Dominguez Unavailable [phone] Levy Barry MD Primary Care Provider Unavailab le Source Comments The information that you have received may contain highly confidential and/or federally protected health information. This information has been disclosed to you from records protected by [email or web address]. The law prohibits you [...] the sender immediately.[facility] ([facility]) Encounter Details Date Type Department Care Team (Late st Contact Info) Description 04/10/2009 Historical Note [facility] [employer] System Devyn Vásquez MD [address] [place] [address] [phone] Social History Tobacco Use Types Packs/Day Years [...] CARRILLO - [facility] [address] [facility] [address] [place] [phone] Brenda Clay MD [address] [facility] [address] [place] [address] 04/15/2026 10:00 AM EDT Office Visit LEATHA Primary Care at [facility] [address] [facility] [address] [place] [address] Sena Dominguez PA [address] [facility] [place] [address] documented as of this encounter Visit Diagnoses Not on filedocumented in this encounter Care Teams Private Investigator Relationship Specialty Start Date End Date Meme Steel MD [address] [place] [address] 105 [place] [address] PCP - General Pediatrics 06/05/18 04/25/22 No Pcp, Pcp PCP - General 06/08/22 07/19/22 Guadalupe Mcbride MD PCP - General Family Medicine 07/20/22 11/01/23 Sena Dominguez PA [address] [place] [address] [place] [address] PCP - BRADY Physician Communications Professional 11/02/23 Levy Barry MD [address] [place] [address] [place] [address] PCP - General Family Medicine 12/20/23 documented as of this encounter
--- OUTSIDE RECORDS SUMMARY | 2025-08-14 15:20 | XMS_ITS | Encounter Summary ---
Author Organization [facility] work ([facility]) Address [address] [place] [address] Care Team Providers Care Police Shift Commander Name Role Phone Meme Steel MD Primary Care Provider [phone] No Pcp, Pcp Primary Care Provider Unavailabl Guadalupe Bardales MD Primary Care Provider [phone] Sena Dominguez Unavailable [phone] Levy Barry MD Primary Care Provider Unavailab le Source Comments The information that you have received may contain highly confidential and/or federally protected health information. This information has been disclosed to you from records protected by [facility]. The law prohibits you from [...] please contact the sender immediately.[facility] ([facility]) Encounter Details Date Type Department Care Team (Late st Contact Info) Description 01/03/2008 Historical Note [facility] [employer]i.[employer] System Devyn Vásquez MD [address] [place] [address] [phone] Social History Tobacco Use Types Packs/Day Years [...] [facility] [address] [facility] [address] [place] [phone] Brenda Clay MD [address] [facility] [address] [place] [address] 04/15/2026 10:00 AM EDT Office Visit LEATHA Primary Care at [facility] + [facility] [address] [facility] [address] [place] [address] Sena Dominguez PA [address] [facility] [place] [address] documented as of this encounter Visit Diagnoses Not on filedocumented in this encounter Care Teams Police Shift Commander Relationship Specialty Start Date End Date Meme Steel MD [address] [place] [address] 105 [place] [address] PCP - General Pediatrics 06/05/18 04/25/22 No Pcp, Pcp PCP - General 06/08/22 07/19/22 Guadalupe Mcbride MD PCP - General Family Medicine 07/20/22 11/01/23 Sena Dominguez PA [address] [place] [address] [place] [address] PCP - BRADY Physician Brush Fabrication Supervisor 11/02/23 Levy Barry MD [address] [place] [address] [place] [address] PCP - General Family Medicine 12/20/23 documented as of this encounter
--- OUTSIDE RECORDS SUMMARY | 2025-08-14 15:20 | XMS_ITS | Encounter Summary ---
Author Organization [facility] work ([facility]) Address [address] [facility] [address] [place] [address] Care Team Providers Care Audit Practice Intern Name Role Phone Meme Steel MD Primary Care Provider [phone] Pcp, Pcp Primary Care Provider Unavailabl Guadalupe Bardales MD Primary Care Provider [phone] Sena Dominguez Unavailable [phone] Levy Barry MD Primary Care Provider Unavailab le Source Comments The information that you have received may contain highly confidential and/or federally protected health information. This information has been disclosed to you from records protected by [facility]. The law prohibits you from making [...] sender immediately.[facility] ([facility]) Encounter Details Date Type Department Care Team (Late st Contact Info) Description 05/20/2014 Historical Note [facility] Devyn Vásquez MD [address] [place] [address] [phone] Social History Tobacco Use Types Packs/Day Years [...] - [facility] [address] [facility] [address] [place] [phone] Brenda Clay MD [address] [facility] [address] [place] [address] 04/15/2026 10:00 AM EDT Office Visit LAETHA Primary Care at [facility] + [facility] [address] [facility] [address] [place] [address] Sena Dominguez PA [address] [facility] [place] [address] documented as of this encounter Visit Diagnoses Not on filedocumented in this encounter Care Teams Audit Practice Intern Relationship Specialty Start Date End Date Meme Steel MD [address] [place] [address] 105 [place] [address] PCP - General Pediatrics 06/05/18 04/25/22 No Pcp, Pcp PCP - General 06/08/22 07/19/22 Guadalupe Mcbride MD PCP - General Family Medicine 07/20/22 11/01/23 Sena Dominguez PA [address] [place] [address] [place] [address] PCP - BRADY Physician Release Of Information Specialist 11/02/23 Levy Barry MD [address] [place] [address] [place] [address] PCP - General Family Medicine 12/20/23 documented as of this encounter
--- OUTSIDE RECORDS SUMMARY | 2025-08-14 15:20 | XMS_ITS | Encounter Summary ---
Author Organization [facility] work ([facility]) Address [address] [place] [address] Care Team Providers Care Clinical Practice Consultant Name Role Phone Meme Steel MD Primary Care Provider [phone] Pcp, Pcp Primary Care Provider Unavailabl Guadalupe Bardales MD Primary Care Provider [phone] Sena Dominguez Unavailable [phone] Levy Barry MD Primary Care Provider Unavailab le Source Comments The information that you have received may contain highly confidential and/or federally protected health information. This information has been disclosed to you from records protected by [facility]. The law prohibits you from [...] contact the sender immediately.[facility] ([facility]) Encounter Details Date Type Department Care Team (Late st Contact Info) Description 11/25/2014 Historical Note [facility] [employer] System Devyn Vásquez MD [address] [place] [address] [phone] Social History Tobacco Use Types Packs/Day Years [...] LEATHA CARRILLO - [facility] [address] [facility] [address] [place] [phone] Brenda Clay MD [address] [facility] [address] [place] [address] 04/15/2026 10:00 AM EDT Office Visit LEATHA Primary Care at [facility] + [facility] [address] [facility] [address] [place] [address] Sena Dominguez PA [address] [facility] [place] [address] documented as of this encounter Visit Diagnoses Not on filedocumented in this encounter Care Teams Clinical Practice Consultant Relationship Specialty Start Date End Date Meme Steel MD [address] [place] [address] 105 [place] [address] PCP - General Pediatrics 06/05/18 04/25/22 No Pcp, Pcp PCP - General 06/08/22 07/19/22 Guadalupe Mcbride MD PCP - General Family Medicine 07/20/22 11/01/23 Sena Dominguez PA [address] [place] [address] [place] [address] PCP - BRADY Physician Parcel Post Truck Driver 11/02/23 Levy Barry MD [address] [place] [address] [place] [address] PCP - General Family Medicine 12/20/23 documented as of this encounter
--- OUTSIDE RECORDS SUMMARY | 2025-08-14 15:20 | XMS_ITS | Encounter Summary ---
Author Organization [facility] work ([facility]) Address [address] [place] [address] Care Team Providers Care Lip Cutter Name Role Phone Meme Steel MD Primary Care Provider [phone] No Pcp, Pcp Primary Care Provider Unavailabl Guadalupe Bardales MD Primary Care Provider [phone] Sena Dominguez Unavailable [phone] Levy Barry MD Primary Care Provider Unavailab le Source Comments The information that you have received may contain highly confidential and/or federally protected health information. This information has been disclosed to you from records protected by [facility]. The law prohibits you from [...] [facility] ([facility]) Encounter Details Date Type Department Care Team (Late st Contact Info) Description 01/04/2008 Historical Note [facility] [employer] System Devyn Vásquez MD [address] [place] [address] [phone] Social History Tobacco Use Types Packs/Day Years [...] - [facility] [address] [facility] [address] [place] [phone] Brenda Clay MD [address] [facility] [address] [place] [address] 04/15/2026 10:00 AM EDT Office Visit LEATHA Primary [facility] at [facility] + [facility] [address] [facility] [address] [place] [address] Sena Dominguez PA [address] [facility] [place] [address] documented as of this encounter Visit Diagnoses Not on filedocumented in this encounter Care Teams Lip Cutter Relationship Specialty Start Date End Date Meme Steel MD [address] [place] [address] 105 [place] [address] PCP - General Pediatrics 06/05/18 04/25/22 No Pcp, Pcp PCP - General 06/08/22 07/19/22 Guadalupe Mcbride MD PCP - General Family Medicine 07/20/22 11/01/23 Sena Dominguez PA [address] [place] [address] [place] [address] PCP - BRADY Physician Vibrating Screen Operator 11/02/23 Levy Barry MD [address] [place] [address] [place] [address] PCP - General Family Medicine 12/20/23 documented as of this encounter
--- OUTSIDE RECORDS SUMMARY | 2025-08-14 15:20 | XMS_ITS | Encounter Summary ---
Author Organization [facility] work ([facility]) Address [address] [place] [address] Care Team Providers Care Filter Filler Name Role Phone Meme Steel MD Primary Care Provider No Pcp, Pcp Primary Care Provider Unavailabl Guadalupe Bardales MD Primary Care Provider [phone] Sena Dominguez Unavailable [phone] Levy Barry MD Primary Care Provider Unavailab le Source Comments The information that you have received may contain highly confidential and/or federally protected health information. This information has been disclosed to you from records protected by [facility]. The law prohibits you [...] contact the sender immediately.[facility] ([facility]) Encounter Details Date Type Department Care Team (Late st Contact Info) Description 05/20/2014 Historical Note [facility] [employer] System Devyn Vásquez MD [address] [place] [address] [phone] Social History Tobacco Use Types Packs/Day Years [...] LEATHA CARRILLO - [facility] [address] [facility] [address] [place] [phone] Brenda Clay MD [address] [facility] [address] [place] [phone] 04/15/2026 10:00 AM EDT Office Visit LEATHA Primary [facility] at [facility] [address] [facility] [address] [place] [address] Sena Dominguez PA [address] [facility] [place] [address] documented as of this encounter Visit Diagnoses Not on filedocumented in this encounter Care Teams Filter Filler Relationship Specialty Start Date End Date Meme Steel MD [address] [place] [address] 105 [place] [address] PCP - General Pediatrics 06/05/18 04/25/22 No Pcp, Pcp PCP - General 06/08/22 07/19/22 Guadalupe Mcbride MD PCP - General Family Medicine 07/20/22 11/01/23 Sena Dominguez PA [address] [place] [address] [place] [address] PCP - BRADY Physician Geography Professor 11/02/23 Levy Barry MD [address] [place] [address] [place] [address] PCP - General Family Medicine 12/20/23 documented as of this encounter
--- OUTSIDE RECORDS SUMMARY | 2025-08-14 15:20 | XMS_ITS | Encounter Summary ---
Author Organization [facility] work ([facility]) Address [address] [place] [address] Care Team Providers Care Car Repairer Apprentice Name Role Phone Meme Steel MD Primary Care Provider [phone] Pcp, Pcp Primary Care Provider Unavailabl Guadalupe Bardales MD Primary Care Provider [phone] Sena Dominguez Unavailable [phone] Levy Barry MD Primary Care Provider Unavailab le Source Comments The information that you have received may contain highly confidential and/or federally protected health information. This information has been disclosed to you from records protected by [facility]. The law prohibits you [...] sender immediately.[facility] ([facility]) Encounter Details Date Type Department Care Team (Late st Contact Info) Description 12/27/2007 Historical Note [facility] [employer] System Devyn Vásquez MD [address] [place] [address] [phone] Social History Tobacco Use Types Packs/Day Years [...] CARRILLO - [facility] [address] [facility] [address] [place] [phone] Brenda Clay MD [address] [facility] [address] [place] [address] 04/15/2026 10:00 AM EDT Office Visit [facility]HA [facility] + [facility] [address] [facility] [address] [place] [address] Sena Dominguez PA [address] [facility] [place] [address] documented as of this encounter Visit Diagnoses Not on filedocumented in this encounter Care Teams Car Repairer Apprentice Relationship Specialty Start Date End Date Meme Steel MD [address] [place] [address] 105 [place] [address] PCP - General Pediatrics 06/05/18 04/25/22 No Pcp, Pcp PCP - General 06/08/22 07/19/22 Guadalupe Mcbride MD PCP - General Family Medicine 07/20/22 11/01/23 Sena Dominguez PA [address] [place] [address] [place] [address] PCP - BRADY Physician Final Inspector Balance Wheel 11/02/23 Levy Barry MD [address] [place] [address] [place] [address] PCP - General Family Medicine 12/20/23 documented as of this encounter
--- OUTSIDE RECORDS SUMMARY | 2025-08-14 15:20 | XMS_ITS | Encounter Summary ---
Author Organization [facility] work ([facility]) Address [address] [place] [address] Care Team Providers Care Export Manager Name Role Phone Meme Steel MD Primary Care Provider [phone] No Pcp, Pcp Primary Care Provider Unavailabl Guadalupe Bardales MD Primary Care Provider [phone] Sena Dominguez Unavailable [phone] Levy Barry MD Primary Care Provider Unavailab le Source Comments The information that you have received may contain highly confidential and/or federally protected health information. This information has been disclosed to you from records protected by [facility]. The law prohibits you [...] contact the sender immediately.[facility] ([facility]) Encounter Details Date Type Department Care Team (Late st Contact Info) Description 01/07/2016 Historical Note [facility] [employer] System Devyn Vásquez MD [address] [place] [address] [phone] Social History Tobacco Use Types Packs/Day Years [...] Visit LEATHA CARRILLO - [facility] [address] [facility] [address] [place] [phone] Brenda Clay MD [address] [facility] [address] [place] [address] 04/15/2026 10:00 AM EDT Office Visit [facility] [address] [facility] [address] [place] [address] Sena Dominguez PA [address] [facility] [place] [address] documented as of this encounter Visit Diagnoses Not on filedocumented in this encounter Care Teams Export Manager Relationship Specialty Start Date End Date Meme Steel MD [address] [place] [address] 105 [place] [address] PCP - General Pediatrics 06/05/18 04/25/22 No Pcp, Pcp PCP - General 06/08/22 07/19/22 Guadalupe Mcbride MD PCP - General Family Medicine 07/20/22 11/01/23 Sena Dominguez PA [address] [place] [address] [place] [address] PCP - BRADY Physician Shank Inspector 11/02/23 Levy Baryr MD [address] [place] [address] [place] [address] PCP - General Family Medicine 12/20/23 documented as of this encounter
--- OUTSIDE RECORDS SUMMARY | 2025-08-14 15:20 | XMS_ITS | Encounter Summary ---
Author Organization [facility] work ([facility]) Address [address] [place] [address] Care Team Providers Care It Help Desk Analyst Name Role Phone Meme Steel MD Primary Care Provider [phone] Pcp, Pcp Primary Care Provider Unavailabl Guadalupe Bardales MD Primary Care Provider [phone] Sena Dominguez Unavailable [phone] Levy Barry MD Primary Care Provider Unavailab le Source Comments The information that you have received may contain highly confidential and/or federally protected health information. This information has been disclosed to you from records protected by [facility]. The law prohibits you from [...] contact the sender immediately.[facility] ([facility]) Encounter Details Date Type Department Care Team (Late st Contact Info) Description 11/26/2007 Historical Note [facility] [employer] System Devyn Vásquez MD [address] [place] [address] [phone] Social History Tobacco Use Types Packs/Day Years [...] Office Visit LEATHA CARRILLO - [facility] [address] [facility] [address] [place] [phone] Brenda Clay MD [address] [facility] [address] [place] [address] 04/15/2026 10:00 AM EDT Office Visit [facility] + [facility] [address] [facility] [facility] [address] [place] [address] Sena Dominguez PA [address] [facility] [place] [address] documented as of this encounter Visit Diagnoses Not on filedocumented in this encounter Care Teams It Help Desk Analyst Relationship Specialty Start Date End Date Meme Steel MD [address] [place] [address] 105 [place] [address] PCP - General Pediatrics 06/05/18 04/25/22 No Pcp, Pcp PCP - General 06/08/22 07/19/22 Guadalupe Mcbride MD PCP - General Family Medicine 07/20/22 11/01/23 Sena Dominguez PA [address] [place] [address] [place] [address] PCP - BRADY Physician Ultrasonic Hand Solderer 11/02/23 Levy Barry MD [address] [place] [address] [place] [address] PCP - General Family Medicine 12/20/23 documented as of this encounter
--- OUTSIDE RECORDS SUMMARY | 2025-08-14 15:20 | XMS_ITS | Encounter Summary ---
Author Organization [facility] work ([facility]) Address [address] [place] [address] Care Team Providers Care Automotive Maintenance Technician Name Role Phone Meme Steel MD Primary Care Provider [phone] Pcp, Pcp Primary Care Provider Unavailabl Guadalupe Bardales MD Primary Care Provider [phone] Sena Dominguez Unavailable [phone] Levy Barry MD Primary Care Provider Unavailab le Source Comments The information that you have received may contain highly confidential and/or federally protected health information. This information has been disclosed to you from records protected by [facility]. The law prohibits you [...] please contact the sender immediately.[facility] ([facility]) Encounter Details Date Type Department Care Team (Late st Contact Info) Description 01/01/2008 Historical Note [facility] [employer] System Devyn Vásquez MD [address] [place] [address] [phone] Social History Tobacco Use Types Packs/Day Years [...] CARRILLO - [facility] [address] [facility] [address] [place] [phone] Brenda Clay MD [address] [facility] [address] [place] [address] 04/15/2026 10:00 AM EDT Office Visit [facility]HA [facility] at [facility] [address] [facility] [address] [place] [address] Sena Dominguez PA [address] [facility] [place] [address] documented as of this encounter Visit Diagnoses Not on filedocumented in this encounter Care Teams Automotive Maintenance Technician Relationship Specialty Start Date End Date Meme Steel MD [address] [place] [address] 105 [place] [address] PCP - General Pediatrics 06/05/18 04/25/22 No Pcp, Pcp PCP - General 06/08/22 07/19/22 Guadalupe Mcbride MD PCP - General Family Medicine 07/20/22 11/01/23 Sena Dominguez PA [address] [place] [address] [place] [address] PCP - BRADY Physician Manager Inventory Control 11/02/23 Levy Barry MD [address] [place] [address] [place] [address] PCP - General Family Medicine 12/20/23 documented as of this encounter
--- OUTSIDE RECORDS SUMMARY | 2025-08-14 15:20 | XMS_ITS | Encounter Summary ---
Author Organization [facility] work ([facility]) Address [address] [facility] [address] [place] [address] Care Team Providers Care Tourist Escort Name Role Phone Meme Steel MD Primary Care Provider No Pcp, Pcp Primary Care Provider Unavailabl Guadalupe Bardales MD Primary Care Provider [phone] Sena Dominguez Unavailable [phone] Levy Barry MD Primary Care Provider Unavailab le Source Comments The information that you have received may contain highly confidential and/or federally protected health information. This information has been disclosed to you from records protected by [facility]. The law prohibits you from making [...] immediately.[facility] ([facility]) Encounter Details Date Type Department Care Team (Late st Contact Info) Description 10/12/2015 Historical Note [facility] [employer] System Devyn Vásquez MD [address] [place] [address] [phone] Social History Tobacco Use Types Packs/Day Years [...] CARRILLO - [facility] [address] [facility] [address] [place] [phone] Brenda Clya MD [address] [facility] [address] [place] [address] 04/15/2026 10:00 AM EDT Office Visit [facility]HA [facility] at [facility] + [facility] [address] [facility] [address] [place] [address] Sena Dominguez PA [address] [facility] [place] [address] documented as of this encounter Visit Diagnoses Not on filedocumented in this encounter Care Teams Tourist Escort Relationship Specialty Start Date End Date Meme Steel MD [address] [place] [address] 105 [place] [address] PCP - General Pediatrics 06/05/18 04/25/22 No Pcp, Pcp PCP - General 06/08/22 07/19/22 Guadalupe Mcbride MD PCP - General Family Medicine 07/20/22 11/01/23 Sena Dominguez PA [address] [place] [address] [place] [address] PCP - BRADY Physician Security Architect 11/02/23 Levy Barry MD [address] [place] [address] [place] [address] PCP - General Family Medicine 12/20/23 documented as of this encounter
--- OUTSIDE RECORDS SUMMARY | 2025-08-14 15:20 | XMS_ITS | Encounter Summary ---
Author Organization [facility] work ([facility]) Address [address] [place] [address] Care Team Providers Care Seismology Technical Officer Name Role Phone Meme Steel MD Primary Care Provider [phone] Pcp, Pcp Primary Care Provider Unavailabl Guadalupe Bardales MD Primary Care Provider [phone] Sena Dominguez Unavailable [phone] Levy Barry MD Primary Care Provider Unavailab le Source Comments The information that you have received may contain highly confidential and/or federally protected health information. This information has been disclosed to you from records protected by [facility]. The law prohibits you from [...] error, please contact the sender immediately.[facility] ([facility]) Encounter Details Date Type Department Care Team (Late st Contact Info) Description 02/18/2014 Historical Note [facility] [employer] System Devyn Vásquez MD [address] [place] [address] [phone] Social History Tobacco Use Types Packs/Day Years [...] LEATHA CARRILLO - [facility] [address] [facility] [address] [place] [phone] Brenda Clay MD [address] [facility] [address] [place] [address] 04/15/2026 10:00 AM EDT Office Visit LEATHA [facility] at [place] [facility] + [facility] [address] [facility] [address] [place] [address] Sena Dominguez PA [address] [facility] [place] [address] documented as of this encounter Visit Diagnoses Not on filedocumented in this encounter Care Teams Seismology Technical Officer Relationship Specialty Start Date End Date Meme Steel MD [address] [place] [address] 105 [place] [address] PCP - General Pediatrics 06/05/18 04/25/22 No Pcp, Pcp PCP - General 06/08/22 07/19/22 Guadalupe Mcbride MD PCP - General Family Medicine 07/20/22 11/01/23 Sena Dominguez PA [address] [place] [address] [place] [address] PCP - BRADY Physician Walking Dragline Operator 11/02/23 Levy Barry MD [address] [place] [address] [place] [address] PCP - General Family Medicine 12/20/23 documented as of this encounter
--- OUTSIDE RECORDS SUMMARY | 2025-08-14 15:20 | XMS_ITS | Encounter Summary ---
Author Organization [facility] work ([facility]) Address [address] [place] [address] Care Team Providers Care Arch Support Technician Name Role Phone Meme Steel MD Primary Care Provider [phone] No Pcp, Pcp Primary Care Provider Unavailabl Guadalupe Bardales MD Primary Care Provider [phone] Sena Dominguez Unavailable [phone] Levy Barry MD Primary Care Provider Unavailab le Source Comments The information that you have received may contain highly confidential and/or federally protected health information. This information has been disclosed to you from records protected by [facility]. The law prohibits you from making [...] error, please contact the sender immediately[facility] ([facility]) Encounter Details Date Type Department Care Team (Late st Contact Info) Description 01/07/2016 Historical Note [facility] [employer] System Devyn Vásquez MD [address] [place] [address] [phone] Social History Tobacco Use Types Packs/Day Years [...] - [facility] [address] [facility] [address] [place] [phone] Brenda Clay MD [address] [facility] [address] [place] [address] 04/15/2026 10:00 AM EDT Office Visit LEATHA Primary [facility] at [facility] + [facility] [address] [facility] [address] [place] [address] Sena Dominguez PA [address] [facility] [place] [address] documented as of this encounter Visit Diagnoses Not on filedocumented in this encounter Care Teams Arch Support Technician Relationship Specialty Start Date End Date Meme Steel MD [address] [place] [address] 105 [place] [address] PCP - General Pediatrics 06/05/18 04/25/22 No Pcp, Pcp PCP - General 06/08/22 07/19/22 Guadalupe Mcbride MD PCP - General Family Medicine 07/20/22 11/01/23 Sena Dominguez PA [address] [place] [address] [place] [address] PCP - BRADY Physician Human Resources Administrator 11/02/23 Levy Barry MD [address] [place] [address] [place] [address] PCP - General Family Medicine 12/20/23 documented as of this encounter
--- OUTSIDE RECORDS SUMMARY | 2025-08-14 15:20 | XMS_ITS | Encounter Summary ---
Author Organization [facility] work ([facility]) Address [address] [place] [address] Care Team Providers Care Embossing Machine Tender Name Role Phone Meme Steel MD Primary Care Provider [phone] Pcp, Pcp Primary Care Provider Unavailabl Guadalupe Bardales MD Primary Care Provider [phone] Sena Dominguez Unavailable [phone] Levy Barry MD Primary Care Provider Unavailab le Source Comments The information that you have received may contain highly confidential and/or federally protected health information. This information has been disclosed to you from records protected by [facility]. The law prohibits you [...] contact the sender immediately.[facility] ([facility]) Encounter Details Date Type Department Care Team (Late st Contact Info) Description 06/18/2014 Historical Note [facility] [employer] System Devyn Vásquez MD [address] [place] [address] [phone] Social History Tobacco Use Types Packs/Day Years [...] LEATHA CARRILLO - [facility] [address] [facility] [address] [place] [phone] Brenda Clay MD [address] [facility] [address] [place] [address] 04/15/2026 10:00 AM EDT Office Visit LEATHA Primary [facility] at [facility] [address] [facility] [address] [place] [address] Sena Dominguez PA [address] [facility] [place] [address] documented as of this encounter Visit Diagnoses Not on filedocumented in this encounter Care Teams Embossing Machine Tender Relationship Specialty Start Date End Date Meme Steel MD [address] [place] [address] [place] [address] PCP - General Pediatrics 06/05/18 04/25/22 No Pcp, Pcp PCP - General 06/08/22 07/19/22 Guadalupe Mcbride MD PCP - General Family Medicine 07/20/22 11/01/23 Sena Dominguez PA [address] [place] [address] [place] [address] PCP - BRADY Physician Train Brake Operator 11/02/23 Levy Barry MD [address] [place] [address] [place] [address] PCP - General Family Medicine 12/20/23 documented as of this encounter
--- OUTSIDE RECORDS SUMMARY | 2025-08-14 15:20 | XMS_ITS | Encounter Summary ---
Author Organization [facility] work ([facility]) Address [address] [place] [address] Care Team Providers Care Sharebroker Name Role Phone Meme Steel MD Primary Care Provider [phone] No Pcp, Pcp Primary Care Provider Unavailabl Guadalupe Bardales MD Primary Care Provider [phone] Sena Dominguez Unavailable [phone] Levy Barry MD Primary Care Provider Unavailab le Source Comments The information that you have received may contain highly confidential and/or federally protected health information. This information has been disclosed to you from records protected by [facility]. The law prohibits you [...] please contact the sender immediately.[facility] ([facility]) Encounter Details Date Type Department Care Team (Late st Contact Info) Description 01/07/2016 Historical Note [facility] [employer] System Devyn Vásquez MD [address] [place] [address] [phone] Social History Tobacco Use Types Packs/Day Years [...] LEATHA CARRILLO - [facility] [address] [facility] [address] [place] [phone] Brenda Clay MD [address] [facility] [address] [place] [address] 04/15/2026 10:00 AM EDT Office Visit LEATHA [facility] at [facility] [address] [facility] [address] [place] [address] Sena Dominguez PA [address] [facility] [place] [address] documented as of this encounter Visit Diagnoses Not on filedocumented in this encounter Care Teams Sharebroker Relationship Specialty Start Date End Date Meme Steel MD [address] [place] [address] 105 [place] [address] PCP - General Pediatrics 06/05/18 04/25/22 No Pcp, Pcp PCP - General 06/08/22 07/19/22 Guadalupe Mcbride MD PCP - General Family Medicine 07/20/22 11/01/23 Sena Dominguez PA [address] [place] [address] [place] [address] PCP - BRADY Physician Behavior Specialist 11/02/23 Levy Barry MD [address] [place] [address] [place] [address] PCP - General Family Medicine 12/20/23 documented as of this encounter
--- OUTSIDE RECORDS SUMMARY | 2025-08-14 15:20 | XMS_ITS | Encounter Summary ---
Author Organization [facility] work ([facility]) Address [address] [place] [address] Care Team Providers Care Logistics Supervisor Name Role Phone Meme Steel MD Primary Care Provider [phone] Pcp, Pcp Primary Care Provider Unavailabl Guadalupe Bardales MD Primary Care Provider [phone] Sena Dominguez Unavailable [phone] Levy Barry MD Primary Care Provider Unavailab le Source Comments The information that you have received may contain highly confidential and/or federally protected health information. This information has been disclosed to you from records protected by [facility]. The law prohibits you from [...] the sender immediately.[facility] ([facility]) Encounter Details Date Type Department Care Team (Late st Contact Info) Description 06/16/2008 Historical Note [facility] [employer] System Devyn Vásquez MD [address] [place] [address] [phone] Social History Tobacco Use Types Packs/Day Years [...] Visit LEATHA CARRILLO - [facility] [address] [facility] [address] [place] [phone] Brenda Clay MD [address] [facility] [address] [place] [address] 04/15/2026 10:00 AM EDT Office Visit LEATHA [facility] at [facility] + [facility] [address] [facility] [address] [place] [address] Sena Dominguez PA [address] [facility] [place] [address] documented as of this encounter Visit Diagnoses Not on filedocumented in this encounter Care Teams Logistics Supervisor Relationship Specialty Start Date End Date Meme Steel MD [address] [place] [address] 105 [place] [address] PCP - General Pediatrics 06/05/18 04/25/22 No Pcp, Pcp PCP - General 06/08/22 07/19/22 Guadalupe Mcbride MD PCP - General Family Medicine 07/20/22 11/01/23 Sena Dominguez PA [address] [place] [address] [place] [address] PCP - BRADY Physician Prepared Foods Associate 11/02/23 Levy Barry MD [address] [place] [address] [place] [address] PCP - General Family Medicine 12/20/23 documented as of this encounter
--- OUTSIDE RECORDS SUMMARY | 2025-08-14 15:20 | XMS_ITS | Encounter Summary ---
Author Organization [facility] work ([facility]) Address [address] [place] [address] Care Team Providers Care Congressional Representative Name Role Phone Meme Steel MD Primary Care Provider [phone] Pcp, Pcp Primary Care Provider Unavailabl Guadalupe Bardales MD Primary Care Provider [phone] Sena Dominguez Unavailable [phone] Levy Barry MD Primary Care Provider Unavailab le Source Comments The information that you have received may contain highly confidential and/or federally protected health information. This information has been disclosed to you from records protected by [facility]. The law prohibits you [...] sender immediately.[facility] ([facility]) Encounter Details Date Type Department Care Team (Late st Contact Info) Description 01/07/2016 Historical Note [facility] Shift Network System Devyn Vásquez MD [address] [place] [address] [phone] Social History Tobacco Use Types Packs/Day Years [...] - Located Within [facility] [address] [place] [phone] Brenda Clay MD [address] [facility] [address] [place] [address] 04/15/2026 10:00 AM EDT Office Visit [facility] + [facility] [address] [place] [address] Sena Dominguez PA [address] [facility] [address] [facility] [place] [address] documented as of this encounter Visit Diagnoses Not on filedocumented in this encounter Care Teams Congressional Representative Relationship Specialty Start Date End Date Meme Steel MD [address] [place] [address] 105 [place] [address] PCP - General Pediatrics 06/05/18 04/25/22 No Pcp, Pcp PCP - General 06/08/22 07/19/22 Guadalupe Mcbride MD PCP - General Family Medicine 07/20/22 11/01/23 Sena Dominguez PA [address] [place] [address] [place] [address] PCP - BRADY Physician Retail Account Representative 11/02/23 Levy Barry MD [address] [place] [address] [place] [address] PCP - General Family Medicine 12/20/23 documented as of this encounter
--- OUTSIDE RECORDS SUMMARY | 2025-08-14 15:20 | XMS_ITS | Encounter Summary ---
Author Organization [facility] work ([facility]) Address [address] [place] [address] Care Team Providers Care Leaded Glass Installer Name Role Phone Meme Steel MD Primary Care Provider [phone] Pcp, Pcp Primary Care Provider Unavailabl Guadalupe Bardales MD Primary Care Provider [phone] Sena Dominguez Unavailable [phone] Levy Barry MD Primary Care Provider Unavailab le Source Comments The information that you have received may contain highly confidential and/or federally protected health information. This information has been disclosed to you from records protected by [facility]. The law prohibits you from making [...] sender immediately.[facility] ([facility]) Encounter Details Date Type Department Care Team (Late st Contact Info) Description 01/02/2014 Historical Note [facility] [email or web address] System Devyn Vásquez MD [address] [place] [address] [phone] Social History Tobacco Use Types Packs/Day Years [...] CARRILLO - [facility] [address] [place] [phone] Brenda Clay MD [address] [facility] [address] [place] [address] 04/15/2026 10:00 AM EDT Office Visit [facility] at [facility] [address] [address] [place] [address] Sena Dominguez PA [address] [facility] [place] [address] documented as of this encounter Visit Diagnoses Not on filedocumented in this encounter Care Teams Leaded Glass Installer Relationship Specialty Start Date End Date Meme Steel MD [address] [place] [address] 105 [place] [address] PCP - General Pediatrics 06/05/18 04/25/22 No Pcp, Pcp PCP - General 06/08/22 07/19/22 Guadalupe Mcbride MD PCP - General Family Medicine 07/20/22 11/01/23 Sena Dominguez PA [address] [place] [address] [place] [address] PCP - BRADY Physician Orthotic Aide 11/02/23 Levy Barry MD [address] [place] [address] [place] [address] PCP - General Family Medicine 12/20/23 documented as of this encounter
--- OUTSIDE RECORDS SUMMARY | 2025-08-14 15:20 | XMS_ITS | Encounter Summary ---
Author Organization [facility] work ([facility]) Address [address] [place] [address] Care Team Providers Care Asbestos Handler Name Role Phone Meme Steel MD Primary Care Provider No Pcp, Pcp Primary Care Provider Unavailabl Guadalupe Bardales MD Primary Care Provider [phone] Sena Dominguez Unavailable [phone] Levy Barry MD Primary Care Provider Unavailab le Source Comments The information that you have received may contain highly confidential and/or federally protected health information. This information has been disclosed to you from records protected by [facility]. The law prohibits you [...] the sender immediately.[facility] ([facility]) Encounter Details Date Type Department Care Team (Late st Contact Info) Description 11/26/2007 Historical Note [facility] Scaffold System Devyn Vásquez MD [address] [place] [address] [phone] Social History Tobacco Use Types Packs/Day Years [...] LEATHA CARRILLO - [facility] at [facility] [address] [place] [phone] Brenda Clay MD [address] [facility] [address] [place] [address] 04/15/2026 10:00 AM EDT Office Visit [facility] + [facility] [address] [place] [address] Sena Dmoinguez PA [address] [facility] [place] [address] documented as of this encounter Visit Diagnoses Not on filedocumented in this encounter Care Teams Asbestos Handler Relationship Specialty Start Date End Date Meme Steel MD [address] [place] [address] 105 [place] [address] PCP - General Pediatrics 06/05/18 04/25/22 No Pcp, Pcp PCP - General 06/08/22 07/19/22 Guadalupe Mcbride MD PCP - General Family Medicine 07/20/22 11/01/23 Sena Dominguez PA [address] [place] [address] [place] [address] PCP - BRADY Physician Division Sergeant 11/02/23 Levy Barry MD [address] [place] [address] [place] [address] PCP - General Family Medicine 12/20/23 documented as of this encounter
--- OUTSIDE RECORDS SUMMARY | 2025-08-14 15:20 | XMS_ITS | Encounter Summary ---
Author Organization [facility] work ([facility]) Address [address] [place] [address] Care Team Providers Care Architectural Designer Name Role Phone Meme Steel MD Primary Care Provider [phone] Pcp, Pcp Primary Care Provider Unavailabl Guadalupe Bardales MD Primary Care Provider [phone] Sena Dominguez Unavailable [phone] Levy Barry MD Primary Care Provider Unavailab le Source Comments The information that you have received may contain highly confidential and/or federally protected health information. This information has been disclosed to you from records protected by [facility]. The law [...] immediately.[facility] ([facility]) Encounter Details Date Type Department Care Team (Late st Contact Info) Description 03/03/2005 Historical Note [facility] [employer] System Devyn Vásquez MD [address] [place] [address] [phone] Social History Tobacco Use Types Packs/Day Years [...] LEATHA CARRILLO - [facility] [address] [facility] [address] [place] [phone] Brenda Clay MD [address] [facility] [address] [place] [phone] 04/15/2026 10:00 AM EDT Office Visit [facility] at [facility] [address] [place] [address] Sena Dominguez PA [address] [facility] [place] [address] documented as of this encounter Visit Diagnoses Not on filedocumented in this encounter Care Teams Architectural Designer Relationship Specialty Start Date End Date Meme Steel MD [address] [place] [address] 105 [place] [address] PCP - General Pediatrics 06/05/18 04/25/22 No Pcp, Pcp PCP - General 06/08/22 07/19/22 Guadalupe Mcbride MD PCP - General Family Medicine 07/20/22 11/01/23 Sena Dominguez PA [address] [place] [address] [place] [address] PCP - BRADY Physician Band And Cuff Cutter 11/02/23 Levy Barry MD [address] [place] [address] [place] [address] PCP - General Family Medicine 12/20/23 documented as of this encounter
--- OUTSIDE RECORDS SUMMARY | 2025-08-14 15:20 | XMS_ITS | Encounter Summary ---
Author Organization [facility] work ([facility]) Address [address] [place] [address] Care Team Providers Care Outsole Leveler Name Role Phone Meme Steel MD Primary Care Provider No Pcp, Pcp Primary Care Provider Unavailabl Guadalupe Bardales MD Primary Care Provider [phone] Sena Dominguez Unavailable Levy Barry MD Primary Care Provider Unavailab le Source Comments The information that you have received may contain highly confidential and/or federally protected health information. This information has been disclosed to you from records protected by [facility]. The law prohibits [...] immediately.[facility] ([facility]) Encounter Details Date Type Department Care Team (Late st Contact Info) Description 06/16/2014 Historical Note [facility] [employer] System Devyn Vásquez MD [address] [place] [address] [phone] Social History Tobacco Use Types Packs/Day Years [...] - [facility] [address] [facility] [address] [place] [phone] Brenda Clay MD [address] [facility] [address] [place] [address] 04/15/2026 10:00 AM EDT Office Visit [facility] at [facility] [address] [place] [address] Sena Dominguez PA [address] [facility] [place] [address] documented as of this encounter Visit Diagnoses Not on filedocumented in this encounter Care Teams Outsole Leveler Relationship Specialty Start Date End Date Meme Steel MD [address] [place] [address] 105 [place] [address] PCP - General Pediatrics 06/05/18 04/25/22 No Pcp, Pcp PCP - General 06/08/22 07/19/22 Guadalupe Mcbride MD PCP - General Family Medicine 07/20/22 11/01/23 Sena Dominguez PA [address] [place] [address] [place] [address] PCP - BRADY Physician Healthcare Administrative Assistant 11/02/23 Levy Barry MD [address] [place] [address] [place] [address] PCP - General Family Medicine 12/20/23 documented as of this encounter
--- OUTSIDE RECORDS SUMMARY | 2025-08-14 15:20 | XMS_ITS | Encounter Summary ---
Author Organization [facility] work ([facility]) Address [address] [place] [address] Care Team Providers Care Satellite Instruction Facilitator Name Role Phone Meme Steel MD Primary Care Provider [phone] Pcp, Pcp Primary Care Provider Unavailabl Guadalupe Bardales MD Primary Care Provider Sena Dominguez Unavailable [phone] Levy Barry MD Primary Care Provider Unavailab le Source Comments The information that you have received may contain highly confidential and/or federally protected health information. This information has been disclosed to you from records protected by [facility]. The law prohibits you from [...] contact the sender immediately.[facility] ([facility]) Encounter Details Date Type Department Care Team (Late st Contact Info) Description 11/27/2015 Historical Note [facility] [employer] System Devyn Vásquez MD [address] [place] [address] [phone] Social History Tobacco Use Types Packs/Day Years [...] LEATHA CARRILLO - [facility] [address] [facility] [address] [place] [phone] Brenda Clay MD [address] [facility] [address] [place] [address] 04/15/2026 10:00 AM EDT Office Visit [facility] at [facility] [address] [facility] [place] [address] Sena Dominguez PA [address] [facility] [place] [address] documented as of this encounter Visit Diagnoses Not on filedocumented in this encounter Care Teams Satellite Instruction Facilitator Relationship Specialty Start Date End Date Meme Steel MD [address] [place] [address] 105 [place] [address] PCP - General Pediatrics 06/05/18 04/25/22 No Pcp, Pcp PCP - General 06/08/22 07/19/22 Guadalupe Mcbride MD PCP - General Family Medicine 07/20/22 11/01/23 Sena Dominguez PA [address] [place] [address] [place] [address] PCP - BRADY Physician Electronic Health Records Specialist 11/02/23 Levy Barry MD [address] [place] [address] [place] [address] PCP - General Family Medicine 12/20/23 documented as of this encounter
--- OUTSIDE RECORDS SUMMARY | 2025-08-14 15:20 | XMS_ITS | Encounter Summary ---
Author Organization [facility] work ([facility]) Address [address] [place] [address] Care Team Providers Care Route Manager Name Role Phone Meme Steel MD Primary Care Provider [phone] Pcp, Pcp Primary Care Provider Unavailabl Guadalupe Bardales MD Primary Care Provider [phone] Sena Dominguez Unavailable Levy Barry MD Primary Care Provider Unavailab le Source Comments The information that you have received may contain highly confidential and/or federally protected health information. This information has been disclosed to you from records protected by [facility]. The law prohibits you [...] please contact the sender immediately.[facility] ([facility]) Encounter Details Date Type Department Care Team (Late st Contact Info) Description 04/10/2009 Historical Note [facility] [employer] System Devyn Vásquez MD [address] [place] [address] [phone] Social History Tobacco Use Types Packs/Day Years [...] CARRILLO - [facility] [address] [facility] [address] [place] [phone] Brenda Clay MD [address] [facility] [address] [place] [phone] 04/15/2026 10:00 AM EDT Office Visit [facility]HA Primary [facility] at [facility] + [facility] [address] [facility] [address] [place] [address] Sena Dominguez PA [address] [facility] [place] [address] documented as of this encounter Visit Diagnoses Not on filedocumented in this encounter Care Teams Route Manager Relationship Specialty Start Date End Date Meme Steel MD [address] [place] [address] 105 [place] [address] PCP - General Pediatrics 06/05/18 04/25/22 No Pcp, Pcp PCP - General 06/08/22 07/19/22 Guadalupe Mcbride MD PCP - General Family Medicine 07/20/22 11/01/23 Sena Dominguez PA [address] [place] [address] [place] [address] PCP - BRADY Physician Lump Receiver 11/02/23 Levy Barry MD [address] [place] [address] [place] [address] PCP - General Family Medicine 12/20/23 documented as of this encounter
--- OUTSIDE RECORDS SUMMARY | 2025-08-14 15:20 | XMS_ITS | Encounter Summary ---
Author Organization [facility] work ([facility]) Address [address] [place] [address] Care Team Providers Care Econometrics Professor Name Role Phone Meme Steel MD Primary Care Provider [phone] Pcp, Pcp Primary Care Provider Unavailabl Guadalupe Bardales MD Primary Care Provider [phone] Sena Dominguez Unavailable [phone] Levy Barry MD Primary Care Provider Unavailab le Source Comments The information that you have received may contain highly confidential and/or federally protected health information. This information has been disclosed to you from records protected by [facility]. The law prohibits you [...] the sender immediately.[facility] ([facility]) Encounter Details Date Type Department Care Team (Late st Contact Info) Description 12/27/2007 Historical Note [facility] [employer] System Devyn Vásquez MD [address] [place] [address] [phone] Social History Tobacco Use Types Packs/Day Years [...] - [facility] [address] [facility] [address] [place] [phone] Brenad Clay MD [address] [facility] [address] [place] [address] 04/15/2026 10:00 AM EDT Office Visit [facility]HA [facility] at [facility] + [facility] [address] [facility] [address] [place] [address] Sena Dominguez PA [address] [facility] [place] [address] documented as of this encounter Visit Diagnoses Not on filedocumented in this encounter Care Teams Econometrics Professor Relationship Specialty Start Date End Date Meme Steel MD [address] [place] [address] 105 [place] [address] PCP - General Pediatrics 06/05/18 04/25/22 No Pcp, Pcp PCP - General 06/08/22 07/19/22 Guadalupe Mcrbide MD PCP - General Family Medicine 07/20/22 11/01/23 Sena Dominguez PA [address] [place] [address] [place] [address] PCP - BRADY Physician Seismograph Supervisor 11/02/23 Levy Barry MD [address] [place] [address] [place] [address] PCP - General Family Medicine 12/20/23 documented as of this encounter
--- OUTSIDE RECORDS SUMMARY | 2025-08-14 15:20 | XMS_ITS | Encounter Summary ---
Author Organization [facility] work ([facility]) Address [address] [place] [address] Care Team Providers Care Prop Attendant Name Role Phone Meme Steel MD Primary Care Provider [phone] No Pcp, Pcp Primary Care Provider Unavailabl Guadalupe Bardales MD Primary Care Provider [phone] Sena Dominguez Unavailable [phone] Levy Barry MD Primary Care Provider Unavailab le Source Comments The information that you have received may contain highly confidential and/or federally protected health information. This information has been disclosed to you from records protected by [facility]. The law prohibits you from [...] error, please contact the sender immediately.[facility] ([facility]) Encounter Details Date Type Department Care Team (Late st Contact Info) Description 10/02/2007 Historical Note [facility] [employer] System Devyn Vásquez MD [address] [place] [address] [phone] Social History Tobacco Use Types Packs/Day Years [...] CARRILLO - [facility] [address] [facility] [address] [place] [phone] Brenda Clay MD [address] [facility] [address] [place] [address] 04/15/2026 10:00 AM EDT Office Visit LEATHA [facility] at [facility] + [facility] [address] [facility] [address] [place] [address] Sena Dominguez PA [address] [facility] [place] [address] documented as of this encounter Visit Diagnoses Not on filedocumented in this encounter Care Teams Prop Attendant Relationship Specialty Start Date End Date Meme Steel MD [address] [place] [address] 105 [place] [address] PCP - General Pediatrics 06/05/18 04/25/22 No Pcp, Pcp PCP - General 06/08/22 07/19/22 Guadalupe Mcbride MD PCP - General Family Medicine 07/20/22 11/01/23 Sena Dominguez PA [address] [place] [address] [place] [address] PCP - BRADY Physician Sewage Treatment Plant Operator 11/02/23 Levy Barry MD [address] [place] [address] [place] [address] PCP - General Family Medicine 12/20/23 documented as of this encounter
--- OUTSIDE RECORDS SUMMARY | 2025-08-14 15:20 | XMS_ITS | Encounter Summary ---
Author Organization [facility] work ([facility]) Address [address] [place] [address] Care Team Providers Care Forklift Operator Name Role Phone Meme Steel MD Primary Care Provider [phone] No Pcp, Pcp Primary Care Provider Unavailabl Guadalupe Bardales MD Primary Care Provider [phone] Sena Dominguez Unavailable [phone] Levy Barry MD Primary Care Provider Unavailab le Source Comments The information that you have received may contain highly confidential and/or federally protected health information. This information has been disclosed to you from records protected by [facility]. The law [...] the sender immediately.[facility] ([facility]) Encounter Details Date Type Department Care Team (Late st Contact Info) Description 08/12/2008 Historical Note [facility] [employer] System Devyn Vásquez MD [address] [place] [address] [phone] Social History Tobacco Use Types Packs/Day Years [...] LEATHA CARRILLO - [facility] [address] [facility] [address] [place] [phone] Brenda Clay MD [address] [facility] [address] [place] [address] 04/15/2026 10:00 AM EDT Office Visit LEATHA Primary Care at [facility] + [facility] [address] [facility] [address] [place] [address] Sena Dominguez PA [address] [facility] [place] [address] documented as of this encounter Visit Diagnoses Not on filedocumented in this encounter Care Teams Forklift Operator Relationship Specialty Start Date End Date Meme Steel MD [address] [place] [address] 105 [place] [address] PCP - General Pediatrics 06/05/18 04/25/22 No Pcp, Pcp PCP - General 06/08/22 07/19/22 Guadalupe Mcbride MD PCP - General Family Medicine 07/20/22 11/01/23 Sena Dominguez PA [address] [place] [address] [place] [address] PCP - BRADY Physician Food And Beverage Intern 11/02/23 Levy Barry MD [address] [place] [address] [place] [address] PCP - General Family Medicine 12/20/23 documented as of this encounter
--- OUTSIDE RECORDS SUMMARY | 2025-08-14 15:20 | XMS_ITS | Encounter Summary ---
Author Organization [facility] work ([facility]) Address [address] [place] [address] Care Team Providers Care Legal Assistant Name Role Phone Meme Steel MD Primary Care Provider [phone] Pcp, Pcp Primary Care Provider Unavailabl Guadalupe Bardales MD Primary Care Provider [phone] Sena Dominguez Unavailable [phone] Levy Barry MD Primary Care Provider Unavailab le Source Comments The information that you have received may contain highly confidential and/or federally protected health information. This information has been disclosed to you from records protected by [facility]. The law prohibits you from [...] error, please contact the sender immediately.[facility] ([facility]) Encounter Details Date Type Department Care Team (Late st Contact Info) Description 06/16/2014 Historical Note [facility] STWA System Devyn Vásquez MD [address] [place] [address] [phone] Social History Tobacco Use Types Packs/Day Years [...] CARRILLO - [facility] [address] [facility] [address] [place] [phone] Brenda Clay MD [address] [facility] [place] [address] [place] [address] 04/15/2026 10:00 AM EDT Office Visit [facility] + [facility] [address] [facility] [address] [place] [address] Sena Dominguez [place] [address] [facility] [place] [address] documented as of this encounter Visit Diagnoses Not on filedocumented in this encounter Care Teams Legal Assistant Relationship Specialty Start Date End Date Meme Steel MD [address] [place] [address] [place] [address] PCP - General Pediatrics 06/05/18 04/25/22 No Pcp, Pcp PCP - General 06/08/22 07/19/22 Guadalupe Mcbride MD PCP - General Family Medicine 07/20/22 11/01/23 Sena Dominguez PA [address] [place] [address] [place] [address] PCP - BRADY Physician Drill Rig Operator 11/02/23 Levy Barry MD [address] [place] [address] [place] [address] PCP - General Family Medicine 12/20/23 documented as of this encounter
--- OUTSIDE RECORDS SUMMARY | 2025-08-14 15:20 | XMS_ITS | Encounter Summary ---
Author Organization [facility] work ([facility]) Address [address] [place] [address] Care Team Providers Care Boat Carpenter Name Role Phone Meme Steel MD Primary Care Provider [phone] Pcp, Pcp Primary Care Provider Unavailabl Guadalupe Bardales MD Primary Care Provider [phone] Sena Dominguez Unavailable [phone] Levy Barry MD Primary Care Provider Unavailab le Source Comments The information that you have received may contain highly confidential and/or federally protected health information. This information has been disclosed to you from records protected by [facility]. The law prohibits you [...] please contact the sender immediately.[facility] ([facility]) Encounter Details Date Type Department Care Team (Late st Contact Info) Description 01/04/2008 Historical Note [facility] PhaseRx System Devyn Vásquez MD [address] [place] [address] [phone] Social History Tobacco Use Types Packs/Day Years [...] LEATHA CARRILLO - [facility] [address] [facility] [address] [place] [phone] Brenda Clay MD [address] [facility] [place] [address] [place] [address] 04/15/2026 10:00 AM EDT Office Visit [facility] at [facility] + [facility] [address] [facility] [address] [place] [address] Sena Dominguez PA [address] [facility] [place] [address] documented as of this encounter Visit Diagnoses Not on filedocumented in this encounter Care Teams Boat Carpenter Relationship Specialty Start Date End Date Meme Steel MD [address] [place] [address] 105 [place] [address] PCP - General Pediatrics 06/05/18 04/25/22 No Pcp, Pcp PCP - General 06/08/22 07/19/22 Guadalupe Mcbride MD PCP - General Family Medicine 07/20/22 11/01/23 Sena Dominguez PA [address] [place] [address] [place] [address] PCP - BRADY Physician Extrusion Press Adjuster 11/02/23 Levy Barry MD [address] [place] [address] [place] [address] PCP - General Family Medicine 12/20/23 documented as of this encounter
--- OUTSIDE RECORDS SUMMARY | 2025-08-14 15:20 | XMS_ITS | Encounter Summary ---
Author Organization [facility] work ([facility]) Address [address] [place] [address] Care Team Providers Care Harness Brusher Name Role Phone Meme Steel MD Primary Care Provider [phone] Pcp, Pcp Primary Care Provider Unavailabl Guadalupe Bardales MD Primary Care Provider [phone] Sena Dominguez Unavailable [phone] Levy Barry MD Primary Care Provider Unavailab le Source Comments The information that you have received may contain highly confidential and/or federally protected health information. This information has been disclosed to you from records protected by [facility]. The law prohibits you [...] sender immediately.[facility] ([facility]) Encounter Details Date Type Department Care Team (Late st Contact Info) Description 11/18/2014 Historical Note [facility] zerved System Devyn Vásquez MD [address] [place] [address] [phone] Social History Tobacco Use Types Packs/Day Years [...] [facility] [address] [facility] [address] [place] [phone] Brenda Clay MD [address] [facility] [place] [address] [place] [address] 04/15/2026 10:00 AM EDT Office Visit [facility]HA [facility] at [facility] + [facility] [address] [facility] [address] [place] [address] Sena Dominguez PA [address] [facility] [place] [address] documented as of this encounter Visit Diagnoses Not on filedocumented in this encounter Care Teams Harness Brusher Relationship Specialty Start Date End Date Meme Steel MD [address] [place] [address] 105 [place] [address] PCP - General Pediatrics 06/05/18 04/25/22 No Pcp, Pcp PCP - General 06/08/22 07/19/22 Guadalupe Mcbride MD PCP - General Family Medicine 07/20/22 11/01/23 Sena Dominguez PA [address] [place] [address] [place] [address] PCP - BRADY Physician Proposal Specialist 11/02/23 Levy Barry MD [address] [place] [address] [place] [address] PCP - General Family Medicine 12/20/23 documented as of this encounter
--- OUTSIDE RECORDS SUMMARY | 2025-08-14 15:21 | XMS_ITS | Encounter Summary ---
Author Organization [facility] work ([facility]) Address [address] [place] [address] Care Team Providers Care Firearms Assembly Supervisor Name Role Phone Meme Steel MD Primary Care Provider [phone] No Pcp, Pcp Primary Care Provider Unavailabl Guadalupe Bardales MD Primary Care Provider [phone] Sena Dominguez Unavailable Levy Barry MD Primary Care Provider Unavailab le Source Comments The information that you have received may contain highly confidential and/or federally protected health information. This information has been disclosed to you from records protected by [facility]. The law prohibits you [...] contact the sender immediately.[facility] ([facility]) Encounter Details Date Type Department Care Team (Late st Contact Info) Description 01/14/2013 Historical Note [facility] Interactive TKO System Devyn Vásquez MD [address] [place] [address] [phone] Social History Tobacco Use Types Packs/Day Years [...] CARRILLO - [facility] [address] [facility] [address] [place] [phone] Brenda Clay MD [address] [facility] [address] [place] [address] 04/15/2026 10:00 AM EDT Office Visit [facility]HA [facility] at [facility] + [facility] [address] [facility] [address] [place] [address] Sena Dominguez PA [address] [facility] [place] [address] documented as of this encounter Visit Diagnoses Not on filedocumented in this encounter Care Teams Firearms Assembly Supervisor Relationship Specialty Start Date End Date Meme Steel MD [address] [place] [address] 105 [place] [address] PCP - General Pediatrics 06/05/18 04/25/22 No Pcp, Pcp PCP - General 06/08/22 07/19/22 Guadalupe Mcbride MD PCP - General Family Medicine 07/20/22 11/01/23 Sena Dominguez PA [address] [place] [address] [place] [address] PCP - BRADY Physician Fish House Worker 11/02/23 Levy Barry MD [address] [place] [address] [place] [address] PCP - General Family Medicine 12/20/23 documented as of this encounter
--- OUTSIDE RECORDS SUMMARY | 2025-08-14 15:21 | XMS_ITS | Encounter Summary ---
Author Organization [facility] work ([facility]) Address [address] [place] [address] Care Team Providers Care Speech And Drama Teacher Name Role Phone Meme Steel MD Primary Care Provider [phone] Pcp, Pcp Primary Care Provider Unavailabl Guadalupe Bardales MD Primary Care Provider Sena Dominguez Unavailable [phone] Levy Barry MD Primary Care Provider Unavailab le Source Comments The information that you have received may contain highly confidential and/or federally protected health information. This information has been disclosed to you from records protected by [facility]. The law prohibits you [...] contact the sender immediately.[facility] ([facility]) Encounter Details Date Type Department Care Team (Late st Contact Info) Description 01/14/2013 Historical Note [facility] Tynker System Devyn Vásquez MD [address] [place] [address] [phone] Social History Tobacco Use Types Packs/Day Years [...] LEATHA CARRILLO - [facility] [address] [facility] [address] [place] [phone] Brenda Clay MD [address] [facility] [address] [place] [address] 04/15/2026 10:00 AM EDT Office Visit [facility] at [facility] + [facility] [address] [facility] [address] [place] [address] Sena Dominguez PA [address] [facility] [place] [address] documented as of this encounter Visit Diagnoses Not on filedocumented in this encounter Care Teams Speech And Drama Teacher Relationship Specialty Start Date End Date Meme Steel MD [address] [place] [address] 105 [place] [address] PCP - General Pediatrics 06/05/18 04/25/22 No Pcp, Pcp PCP - General 06/08/22 07/19/22 Guadalupe Mcbride MD PCP - General Family Medicine 07/20/22 11/01/23 Sena Dominguez PA [address] [place] [address] [place] [address] PCP - BRADY Physician Director Video 11/02/23 Levy Barry MD [address] [place] [address] [place] [address] PCP - General Family Medicine 12/20/23 documented as of this encounter
--- OUTSIDE RECORDS SUMMARY | 2025-08-14 15:21 | XMS_ITS | Encounter Summary ---
Author Organization [facility] work ([facility]) Address [address] [place] [address] Care Team Providers Care Scaleman Name Role Phone Meme Steel MD Primary Care Provider [phone] Pcp, Pcp Primary Care Provider Unavailabl Guadalupe Bardales MD Primary Care Provider [phone] Sena Dominguez Unavailable [phone] Levy Barry MD Primary Care Provider Unavailab le Source Comments The information that you have received may contain highly confidential and/or federally protected health information. This information has been disclosed to you from records protected by [facility]. The law prohibits you [...] error, please contact the sender immediately.[facility] ([facility]) Encounter Details Date Type Department Care Team (Late st Contact Info) Description 01/04/2008 Historical Note [facility] iCrimefighter System Devyn Vásquez MD [address] [place] [address] [phone] Social History Tobacco Use Types Packs/Day Years [...] LEATHA CARRILLO - [facility] [address] [facility] [address] [place] [phone] Brenda Clay MD [address] [facility] [address] [place] [address] 04/15/2026 10:00 AM EDT Office Visit [facility]HA [facility] at [facility] + [facility] [address] [facility] [address] [place] [address] Sena Dominguez PA [address] [facility] [place] [address] documented as of this encounter Visit Diagnoses Not on filedocumented in this encounter Care Teams Scaleman Relationship Specialty Start Date End Date Meme Steel MD [address] [place] [address] 105 [place] [address] PCP - General Pediatrics 06/05/18 04/25/22 No Pcp, Pcp PCP - General 06/08/22 07/19/22 Guadalupe Mcbride MD PCP - General Family Medicine 07/20/22 11/01/23 Sena Dominguez PA [address] [place] [address] [place] [address] PCP - BRADY Physician Personal Security Specialist 11/02/23 Levy Barry MD [address] [place] [address] [place] [address] PCP - General Family Medicine 12/20/23 documented as of this encounter
--- OUTSIDE RECORDS SUMMARY | 2025-08-14 15:21 | XMS_ITS | Encounter Summary ---
Author Organization [facility] work ([facility]) Address [address] [place] [address] Care Team Providers Care Control Electrician Name Role Phone Meme Steel MD Primary Care Provider [phone] No Pcp, Pcp Primary Care Provider Unavailabl Guadalupe Bardales MD Primary Care Provider [phone] Sena Dominguez Unavailable [phone] Levy Barry MD Primary Care Provider Unavailab le Source Comments The information that you have received may contain highly confidential and/or federally protected health information. This information has been disclosed to you from records protected by [facility]. The law prohibits you [...] the sender immediately.[facility] ([facility]) Encounter Details Date Type Department Care Team (Late st Contact Info) Description 05/14/2013 Historical Note [facility] Meedor System Devyn Vásquez MD [address] [place] [address] [phone] Social History Tobacco Use Types Packs/Day Years [...] LEATHA CARRILLO - [facility] [address] [facility] [address] [place] [phone] Brenda Clay MD [address] [facility] [address] [place] [address] 04/15/2026 10:00 AM EDT Office Visit LE[facility]HA [facility] at [facility] + [facility] [address] [facility] [address] [place] [address] Sena Dominguez PA [address] [facility] [place] [address] documented as of this encounter Visit Diagnoses Not on filedocumented in this encounter Care Teams Control Electrician Relationship Specialty Start Date End Date Meme Steel MD [address] [place] [address] 105 [place] [address] PCP - General Pediatrics 06/05/18 04/25/22 No Pcp, Pcp PCP - General 06/08/22 07/19/22 Guadalupe Mcbride MD PCP - General Family Medicine 07/20/22 11/01/23 Sena Dominguez PA [address] [place] [address] [place] [address] PCP - BRADY Physician Video Game Programmer 11/02/23 Levy Barry MD [address] [place] [address] [place] [address] PCP - General Family Medicine 12/20/23 documented as of this encounter
--- OUTSIDE RECORDS SUMMARY | 2025-08-14 15:21 | XMS_ITS | Encounter Summary ---
Author Organization [facility] work ([facility]) Address [address] [place] [address] Care Team Providers Care Tire And Lube Technician Name Role Phone Meme Steel MD Primary Care Provider [phone] Pcp, Pcp Primary Care Provider Unavailabl Guadalupe Bardales MD Primary Care Provider [phone] Sena Dominguez Unavailable [phone] Levy Barry MD Primary Care Provider Unavailab le Source Comments The information that you have received may contain highly confidential and/or federally protected health information. This information has been disclosed to you from records protected by [facility]. The law prohibits you from [...] please contact the sender immediately.[facility] ([facility]) Encounter Details Date Type Department Care Team (Late st Contact Info) Description 10/07/2014 Historical Note [facility] [employer] System Devyn Vásquez MD [address] [place] [address] [phone] Social History Tobacco Use Types Packs/Day Years [...] LEATHA CARRILLO - [facility] [address] [facility] [address] [place] [phone] Brenda Clay MD [address] [facility] [address] [place] [phone] 04/15/2026 10:00 AM EDT Office Visit [facility]HA [facility] at [facility] + [facility] [address] [facility] [address] [place] [address] Sena Dominguez PA [address] [facility] [place] [address] documented as of this encounter Visit Diagnoses Not on filedocumented in this encounter Care Teams Tire And Lube Technician Relationship Specialty Start Date End Date Meme Steel MD [address] [place] [address] 105 [place] [address] PCP - General Pediatrics 06/05/18 04/25/22 No Pcp, Pcp PCP - General 06/08/22 07/19/22 Guadalupe Mcbride MD PCP - General Family Medicine 07/20/22 11/01/23 Sena Dominguez PA [address] [place] [address] [place] [address] PCP - BRADY Physician Carpet Installer Helper 11/02/23 Levy Barry MD [address] [place] [address] [place] [address] PCP - General Family Medicine 12/20/23 documented as of this encounter
--- OUTSIDE RECORDS SUMMARY | 2025-08-14 15:21 | XMS_ITS | Clinical Summary ---
Author Organization [facility] work ([facility]) Address [address] [place] [address] Care Team Providers Care Welt Beater Name Role Phone Sena Dominguez Unavailable [phone] Levy Barry MD Primary Care Provider Unavailab le Source Comments The information that you have received may contain highly confidential and/or federally protected health information. This information has been disclosed to you from records protected by [employer]. 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 1 01/31/2025 Alcohol and Drug Use [...] 10:00 AM EST Office Visit LEATHA CARRILLO [facility] [address] [place] [phone] Brenda Clay MD [address] [place] [address] 290 [facility] [place] [phone] 04/15/2026 10:00 AM EDT Office Visit LEATHA Primary Care at [facility] + [address] [place] [address] Sena Dominguez [place] [address] [facility] Shush[place] [id number] Health Maintenance Due Date Last Done Comments [...] lest 1 x week for 10 minutes (supervisor intermediates goal of 150 minutes planned movement weekly) [...] 11.0 - 15.0 % [facility] Platelet Count 329 140 - 400 Thousand/u L [facility] Mpv 10.1 7.5 - 12.5 fL [facility] Absolute Neutrophil Count 4,529 1,500 - 7,800 cells/uL [facility] Lymphocyte Count 2,116 850 - 3,900 cells/uL [facility] Monocyte Count 481 200 - 950 cells/uL [facility] Absolute Eosinophil Count 237 15 - 500 cells/uL [facility] Absolute Basophil Count 37 0 - 200 cells/uL [facility] Neutrophils Percent 61.2 % [facility] Total Lymphocytes Percent 28.6 % [facility] Monocytes Percent 6.5 % [facility] Eosinophil Percent 3.2 % [facility] Basophils Percent 0.5 % [facility] Blood specimen / Unknown 07/05/2025 10:34 AM EDT 07/05/2025 10:34 AM EDT Narrative [facility] - 07/05/2025 6:11 PM EDT 1 OF 2 REQS FASTING:YES FASTING: YES Holly VÁZQUEZ LAB BLOOD ORDERABLES Final R esult [facility] [address] [place] [address] [place] [id number] [facility] [place] [address] * (ABNORMAL) Lipid panel w/Reflex to Direct LDL (07/05/2025 10:34 AM EDT) Cholesterol 192 <200 mg/dL [facility] HDL Cholesterol 62 > OR = 50 mg/dL [facility] Triglycerides 81 <150 mg/dL [facility] LDL Cholesterol, Calculated 112(H) mg/dL (calc) [facility] Comment: Reference range: <100 Desirable range <100 mg/dL for primary prevention; <70 mg/dL for patients with CHD or diabetic patients with > or = 2 CHD risk factors. LDL-C is now calculated using the Madelyn calculation, which is a validated novel method providing better accuracy than the Friedewald equation in the estimation of LDL-C. Antoine SS et al. DEBORA. 2013;310(82): 0406-5242 (http://education.FOCUS Trainr/faq/ZQG015) Cholesterol/HDL Ratio 3.1 <5.0 (calc) [facility] NON-HDL CHOLESTEROL 130(H) <130 mg/dL (calc) [facility] Comment: For patients with diabetes plus [...] ORDERABLES Final R esult [facility] [address] [place] [address] [place] [address] [facility]ate [address] [place] [address] [place] [address] * Comprehensive metabolic panel (07/05/2025 10:34 AM EDT) [facility] Glucose 80 65 - 99 mg/dL [facility] Comment: Fasting reference interval BUN 9 7 - 25 mg/dL [facility] Creatinine 0.64 0.50 - 0.96 mg/dL [facility] EGFR 129 > OR = 60 mL/min/1. 73m2 [facility] BUN/Creatinine Ratio SEE NOTE: 6 - 22 (calc) [facility] Comment: Not Reported: BUN and Creatinine are within reference range. Sodium 138 135 - 146 mmol/L [facility] Potassium 4.5 3.4 - 4.8 mmol/L [facility] Chloride 107 98 - 110 mmol/L [facility] CO2 23 20 - 32 mmol/L [facility] Calcium 9.0 8.6 - 10.2 mg/dL [facility] Total Protein 7.3 6.4 - 8.4 g/dL [facility] Albumin 3.8 3.6 - 5.1 g/dL [facility] Globulin, Calculated 3.5 2.2 - 4.0 g/dL (calc) [facility] ALBUMIN/GLOBULI N RATIO 1.1 0.9 - 2.3 (calc) [facility] Total Bilirubin 0.3 0.2 - 1.2 mg/dL [facility] Alkaline Phosphatase 91 31 - 125 U/L [facility] AST 20 10 - 30 U/L [facility] ALT 16 6 - 29 U/L [facility] Blood Blood specimen / Unknown 07/05/2025 10:34 AM EDT 07/05/2025 10:34 AM EDT Narrative [facility] - 07/05/2025 6:11 PM EDT 1 OF 2 REQS FASTING:YES FASTING: YES us Holly VÁZQUEZ LAB BLOOD ORDERABLES Final R esult [facility] [address] [place] [address] [place] [address] [facility] [address] [place] [address] [place] [phone] from Last 3 Months Insurance [facility] [place] [facility] [employer] [facility] [place] Care Teams Welt Beater Relationship Specialty Start Date End Date Sen[place] Doming[place] [address] [facility] [place] [id number] PCP - BRADY Physician Director Law Enforcement 11/02/23 Levy Barry MD [address] [facility] [place] [address] PCP - General Family Medicine 12/20/23
--- OUTSIDE RECORDS SUMMARY | 2025-08-14 15:21 | XMS_ITS | Encounter Summary ---
Author Organization [facility] work ([facility]) Address [address] [place] [address] Care Team Providers Care Associate Consulting Engineer Name Role Phone Meme Steel MD Primary Care Provider [phone] Pcp, Pcp Primary Care Provider Unavailabl Guadalupe Bardales MD Primary Care Provider [phone] Sena Dominguez Unavailable [phone] Levy Barry MD Primary Care Provider Unavailab le Source Comments The information that you have received may contain highly confidential and/or federally protected health information. This information has been disclosed to you from records protected by [facility]. The law prohibits you from [...] contact the sender immediately.[facility] ([facility]) Encounter Details Date Type Department Care Team (Late st Contact Info) Description 09/17/2013 Historical Note [facility] Chug System Devyn Vásquez MD [address] [place] [address] [phone] Social History Tobacco Use Types Packs/Day Years [...] LEATHA CARRILLO - [facility] [address] [place] [phone] Brenda Clay MD [address] [facility] [address] [place] [phone] 04/15/2026 10:00 AM EDT Office Visit LEATHA [facility] at [facility] + [facility] [address] [place] [address] Sena Dominguez PA [address] [facility] [place] [address] documented as of this encounter Visit Diagnoses Not on filedocumented in this encounter Care Teams Associate Consulting Engineer Relationship Specialty Start Date End Date Meme Steel MD [address] [place] [address] [place] [address] PCP - General Pediatrics 06/05/18 04/25/22 No Pcp, Pcp PCP - General 06/08/22 07/19/22 Guadalupe Mcbride MD PCP - General Family Medicine 07/20/22 11/01/23 Sena Dominguez PA [address] [place] [address] [place] [address] PCP - BRADY Physician Motor Grader Rough Grade 11/02/23 Levy Barry MD [address] [place] [address] [place] [address] PCP - General Family Medicine 12/20/23 documented as of this encounter
--- OUTSIDE RECORDS SUMMARY | 2025-08-14 15:21 | XMS_ITS | Encounter Summary ---
Author Organization [facility] work ([facility]) Address [address] [place] [address] Care Team Providers Care Sweat Box Attendant Name Role Phone Meme Steel MD Primary Care Provider [phone] Pcp, Pcp Primary Care Provider Unavailabl Guadalupe Bardales MD Primary Care Provider [phone] Sena Dominguez Unavailable [phone] Levy Barry MD Primary Care Provider Unavailab le Source Comments The information that you have received may contain highly confidential and/or federally protected health information. This information has been disclosed to you from records protected by [employer] [facility] [facility]. The law prohibits you [...] contact the sender immediately.[facility] ([facility]) Encounter Details Date Type Department Care Team (Late st Contact Info) Description 01/02/2014 Historical Note [facility] Peatix System Devyn Vásquez MD [address] [place] [address] [phone] Social History Tobacco Use Types Packs/Day Years [...] LEATHA CARRILLO - [facility] [address] [place] [phone] Brenda Clay MD [address] [facility] [address] [place] [address] 04/15/2026 10:00 AM EDT Office Visit LEATHA Primary Care at [facility] + [facility] [address] [facility] [place] [address] Sena Dominguez [place] [address] [facility] [place] [address] documented as of this encounter Visit Diagnoses Not on filedocumented in this encounter Care Teams Sweat Box Attendant Relationship Specialty Start Date End Date Meme Steel MD [address] [place] [address] 105 [place] [address] PCP - General Pediatrics 06/05/18 04/25/22 No Pcp, Pcp PCP - General 06/08/22 07/19/22 Guadalupe Mcbride MD PCP - General Family Medicine 07/20/22 11/01/23 Sena Dominguez PA [address] [place] [address] [place] [address] PCP - BRADY Physician Bingo Cashier 11/02/23 Levy Barry MD [address] [place] [address] [place] [address] PCP - General Family Medicine 12/20/23 documented as of this encounter
--- OUTSIDE RECORDS SUMMARY | 2025-08-14 15:21 | XMS_ITS | Encounter Summary ---
Author Organization [facility] work ([facility]) Address [address] [place] [address] Care Team Providers Care Machine Shorthand Teacher Name Role Phone Meme Steel MD Primary Care Provider [phone] Pcp, Pcp Primary Care Provider Unavailabl Guadalupe Bardales MD Primary Care Provider [phone] Sena Dominguez Unavailable [phone] Levy Barry MD Primary Care Provider Unavailab le Source Comments The information that you have received may contain highly confidential and/or federally protected health information. This information has been disclosed to you from records protected by [facility]. The law prohibits you [...] error, please contact the sender immediately.[facility] ([facility]) Encounter Details Date Type Department Care Team (Late st Contact Info) Description 11/21/2013 Historical Note [facility] PerformLine System Devyn Vásquez MD [address] [place] [address] [phone] Social History Tobacco Use Types Packs/Day Years [...] LEATHA CARRILLO - [facility] [address] [place] [phone] Brenda Clay MD [address] [facility] [address] [place] [phone] 04/15/2026 10:00 AM EDT Office Visit LEATHA Primary Care at [facility] + [facility] [address] [facility] [address] [place] [address] Sena Dominguez PA [address] [facility] [place] [address] documented as of this encounter Visit Diagnoses Not on filedocumented in this encounter Care Teams Machine Shorthand Teacher Relationship Specialty Start Date End Date Meme Steel MD [address] [place] [address] [place] [address] PCP - General Pediatrics 06/05/18 04/25/22 No Pcp, Pcp PCP - General 06/08/22 07/19/22 Guadalupe Mcbride MD PCP - General Family Medicine 07/20/22 11/01/23 Sena Dominguez PA [address] [place] [address] [place] [address] PCP - BRADY Physician Last Pattern Grader 11/02/23 Levy Barry MD [address] [place] [address] [place] [address] PCP - General Family Medicine 12/20/23 documented as of this encounter
--- OUTSIDE RECORDS SUMMARY | 2025-08-14 15:21 | XMS_ITS | Encounter Summary ---
Author Organization [facility] work ([facility]) Address [address] [place] [address] Care Team Providers Care Professor Of Legal Studies Name Role Phone Meme Steel MD Primary Care Provider [phone] Pcp, Pcp Primary Care Provider Unavailabl Guadalupe Bardales MD Primary Care Provider [phone] Sena Dominguez Unavailable [phone] Levy Barry MD Primary Care Provider Unavailab le Source Comments The information that you have received may contain highly confidential and/or federally protected health information. This information has been disclosed to you from records protected by [employer]. The law prohibits you [...] contact the sender immediately.[facility] ([facility]) Encounter Details Date Type Department Care Team (Late st Contact Info) Description 08/13/2013 Historical Note [facility] Front Flip System Devyn Vásquez MD [address] [place] [address] [phone] Social History Tobacco Use Types Packs/Day Years [...] LEATHA CARRILLO - [facility] [address] [facility] [address] [place] [phone] Brenda Clay MD [address] [facility] [address] [place] [phone] 04/15/2026 10:00 AM EDT Office Visit LEATHA Primary Care at [facility] + [facility] [address] [facility] [address] [place] [address] Sena Dominguez PA [address] [facility] [place] [address] documented as of this encounter Visit Diagnoses Not on filedocumented in this encounter Care Teams Professor Of Legal Studies Relationship Specialty Start Date End Date Meme Steel MD [address] [place] [address] [place] [address] PCP - General Pediatrics 06/05/18 04/25/22 No Pcp, Pcp PCP - General 06/08/22 07/19/22 Guadalupe Mcbride MD PCP - General Family Medicine 07/20/22 11/01/23 Sena Dominguez PA [address] [place] [address] [place] [address] PCP - BRADY Physician Ground Transportation Operator 11/02/23 Levy Barry MD [address] [place] [address] [place] [address] PCP - General Family Medicine 12/20/23 documented as of this encounter
--- OUTSIDE RECORDS SUMMARY | 2025-08-14 15:21 | XMS_ITS | Encounter Summary ---
Author Organization [facility] work ([facility]) Address [address] [place] [address] Care Team Providers Care Medical Chemist Name Role Phone Meme Steel MD Primary Care Provider [phone] Pcp, Pcp Primary Care Provider Unavailabl Guadalupe Bardales MD Primary Care Provider [phone] Sena Dominguez Unavailable [phone] Levy Barry MD Primary Care Provider Unavailab le Source Comments The information that you have received may contain highly confidential and/or federally protected health information. This information has been disclosed to you from records protected by [facility]. The law prohibits [...] please contact the sender immediately.[facility] ([facility]) Encounter Details Date Type Department Care Team (Late st Contact Info) Description 08/21/2014 Historical Note [facility] Teradici System Devyn Vásquez MD [address] [place] [address] [phone] Social History Tobacco Use Types Packs/Day Years [...] [facility] [address] [facility] [address] [place] [phone] Brenda Clay MD [address] [facility] [address] [place] [phone] 04/15/2026 10:00 AM EDT Office Visit LEATHA [facility] at [facility] + [facility] [address] [facility] [address] [place] [phone] Sena Dominguez PA [address] [facility] [place] [address] documented as of this encounter Visit Diagnoses Not on filedocumented in this encounter Care Teams Medical Chemist Relationship Specialty Start Date End Date Meme Steel MD [address] [place] [address] 105 [place] [address] PCP - General Pediatrics 06/05/18 04/25/22 No Pcp, Pcp PCP - General 06/08/22 07/19/22 Guadalupe Mcbride MD PCP - General Family Medicine 07/20/22 11/01/23 Sena Dominguez PA [address] [place] [address] [place] [address] PCP - BRADY Physician Batch Roller Operator 11/02/23 Levy Barry MD [address] [place] [address] [place] [address] PCP - General Family Medicine 12/20/23 documented as of this encounter
--- OUTSIDE RECORDS SUMMARY | 2025-08-14 15:21 | XMS_ITS | Encounter Summary ---
Author Organization [facility] work ([facility]) Address [address] [place] [address] Care Team Providers Care Drupal Web Developer Name Role Phone Meme Steel MD Primary Care Provider [phone] Pcp, Pcp Primary Care Provider Unavailabl Guadalupe Bardales MD Primary Care Provider [phone] Sena Dominguez Unavailable [phone] Levy Barry MD Primary Care Provider Unavailab le Source Comments The information that you have received may contain highly confidential and/or federally protected health information. This information has been disclosed to you from records protected by [employer] [facility]. The law prohibits you from making [...] please contact the sender immediately.[facility] ([facility]) Encounter Details Date Type Department Care Team (Late st Contact Info) Description 05/14/2013 Historical Note [facility] DIRAmed System Devyn Vásquez MD [address] [place] [address] [phone] Social History Tobacco Use Types Packs/Day Years [...] Visit LEATHA CARRILLO - [facility] [address] [place] [phone] Brenda Clay MD [address] [facility] [address] [place] [phone] 04/15/2026 10:00 AM EDT Office Visit LEATHA Primary [facility] at [facility] + [facility] [address] [facility] [address] [place] [address] Sena Dominguez PA [address] [facility] [place] [address] documented as of this encounter Visit Diagnoses Not on filedocumented in this encounter Care Teams Drupal Web Developer Relationship Specialty Start Date End Date Meme Steel MD [address] [place] [address] [place] [address] PCP - General Pediatrics 06/05/18 04/25/22 No Pcp, Pcp PCP - General 06/08/22 07/19/22 Guadalupe Mcbride MD PCP - General Family Medicine 07/20/22 11/01/23 Sena Dominguez PA [address] [place] [address] [place] [address] PCP - BRADY Physician Skidder Lever Operator 11/02/23 Levy Barry MD [address] [place] [address] [place] [address] PCP - General Family Medicine 12/20/23 documented as of this encounter
--- OUTSIDE RECORDS SUMMARY | 2025-08-14 15:21 | XMS_ITS | Encounter Summary ---
Author Organization [facility] work ([facility]) Address [address] [place] [address] Care Team Providers Care Business Communications Instructor Name Role Phone Meme Steel MD Primary Care Provider [phone] Pcp, Pcp Primary Care Provider Unavailabl Guadalupe Bardales MD Primary Care Provider [phone] Sena Dominguez Unavailable [phone] Levy Barry MD Primary Care Provider Unavailab le Source Comments The information that you have received may contain highly confidential and/or federally protected health information. This information has been disclosed to you from records protected by [facility]. The law prohibits you from [...] in error, please contact the sender immediately. ([facility]) Encounter Details Date Type Department Care Team (Late st Contact Info) Description 11/21/2013 Historical Note [facility] AMS-Qi System Devyn Vásquez MD [address] [place] [phone] Social History Tobacco Use Types Packs/Day Years [...] CARRILLO - [facility] [address] [facility] [address] [place] [phone] Brenda Clay MD [address] [facility] [address] [place] [phone] 04/15/2026 10:00 AM EDT Office Visit LEATHA Primary [facility] at [facility] + [facility] [address] [facility] [address] [place] [address] Sena Dominguez PA [address] [facility] [place] [address] documented as of this encounter Visit Diagnoses Not on filedocumented in this encounter Care Teams Business Communications Instructor Relationship Specialty Start Date End Date Meme Steel MD [address] [place] [address] 105 [place] [address] PCP - General Pediatrics 06/05/18 04/25/22 No Pcp, Pcp PCP - General 06/08/22 07/19/22 Guadalupe Mcbride MD PCP - General Family Medicine 07/20/22 11/01/23 Sena Dominguez PA [address] [place] [address] [place] [address] PCP - BRADY Physician Serging Machine Operator Automatic 11/02/23 Levy Barry MD [address] [place] [address] [place] [address] PCP - General Family Medicine 12/20/23 documented as of this encounter
--- OUTSIDE RECORDS SUMMARY | 2025-08-14 15:21 | XMS_ITS | Encounter Summary ---
Author Organization [facility] work ([facility]) Address [address] [place] [address] Care Team Providers Care Differential Repairer Name Role Phone Meme Steel MD Primary Care Provider [phone] Pcp, Pcp Primary Care Provider Unavailabl Guadalupe Bardales MD Primary Care Provider [phone] Sena Dominguez Unavailable [phone] Levy Barry MD Primary Care Provider Unavailab le Source Comments The information that you have received may contain highly confidential and/or federally protected health information. This information has been disclosed to you from records protected by [facility]. The law prohibits you from [...] the sender immediately.[facility] ([facility]) Encounter Details Date Type Department Care Team (Late st Contact Info) Description 09/22/2014 Historical Note [facility] [employer] System Devyn Vásquez MD [address] [place] [address] [id number] Social History Tobacco Use Types Packs/Day Years [...] LEATHA CARRILLO - [facility] [address] [facility] [address] [place] [phone] Brenda Clay MD [address] [facility] [address] [place] [phone] 04/15/2026 10:00 AM EDT Office Visit LEATHA Primary Care at [facility] [address] [facility] [address] [place] [address] Sena Dominguez PA [address] [facility] [place] [address] documented as of this encounter Visit Diagnoses Not on filedocumented in this encounter Care Teams Differential Repairer Relationship Specialty Start Date End Date Meme Steel MD [address] [place] [address] 105 [place] [address] PCP - General Pediatrics 06/05/18 04/25/22 No Pcp, Pcp PCP - General 06/08/22 07/19/22 Guadalupe Mcbride MD PCP - General Family Medicine 07/20/22 11/01/23 Sena Dominguez PA [address] [place] [address] [place] [address] PCP - BRADY Physician Warp Scouring Vat Tender 11/02/23 Levy Barry MD [address] [place] [address] [place] [address] PCP - General Family Medicine 12/20/23 documented as of this encounter
--- OUTSIDE RECORDS SUMMARY | 2025-08-14 15:21 | XMS_ITS | Encounter Summary ---
Author Organization [facility] work ([facility]) Address [address] [facility] [address] [place] [address] Care Team Providers Care Care Mgr Name Role Phone Meme Steel MD Primary Care Provider [phone] Pcp, Pcp Primary Care Provider Unavailabl Guadalupe Bardales MD Primary Care Provider [phone] Sena Dominguez Unavailable [phone] Levy Barry MD Primary Care Provider Unavailab le Source Comments The information that you have received may contain highly confidential and/or federally protected health information. This information has been disclosed to you from records protected by [email or web address]. The law prohibits you from [...] [facility] ([facility]) Encounter Details Date Type Department Care Team (Late st Contact Info) Description 09/22/2014 Historical Note [facility] [employer] System Devyn Vásquez MD [address] [place] [address] [phone] Social History Tobacco Use Types Packs/Day Years [...] LEATHA CARRILLO - [facility] [address] [facility] [address] [place] [phone] Brenda Clay MD [address] [facility] [address] [place] [phone] 04/15/2026 10:00 AM EDT Office Visit LEATHA Primary [facility] at [facility] [address] [facility] [address] [place] [address] Sena Dominguez PA [address] [facility] [place] [address] documented as of this encounter Visit Diagnoses Not on filedocumented in this encounter Care Teams Care Mgr Relationship Specialty Start Date End Date Meme Steel MD [address] [place] [address] 105 [place] [address] PCP - General Pediatrics 06/05/18 04/25/22 No Pcp, Pcp PCP - General 06/08/22 07/19/22 Guadalupe Mcbride MD PCP - General Family Medicine 07/20/22 11/01/23 Sena Dominguez PA [address] [place] [address] [place] [address] PCP - BRADY Physician Coremaker Machine 11/02/23 Levy Barry MD [address] [place] [address] [place] [address] PCP - General Family Medicine 12/20/23 documented as of this encounter
--- OUTSIDE RECORDS SUMMARY | 2025-08-14 15:21 | XMS_ITS | Encounter Summary ---
Author Organization [facility] work ([facility]) Address [address] [place] [address] Care Team Providers Care Leaf Fat Scraper Name Role Phone Meme Steel MD Primary Care Provider [phone] Pcp, Pcp Primary Care Provider Unavailabl Guadalupe Bardales MD Primary Care Provider [phone] Sena Dominguez Unavailable [phone] Levy Barry MD Primary Care Provider Unavailab le Source Comments The information that you have received may contain highly confidential and/or federally protected health information. This information has been disclosed to you from records protected by [facility]. The law prohibits you from [...] contact the sender immediately.[facility] ([facility]) Encounter Details Date Type Department Care Team (Late st Contact Info) Description 11/07/2014 Historical Note [facility] [employer] System Devyn Vásquez MD [address] [place] [address] [phone] Social History Tobacco Use Types Packs/Day Years [...] CARRILLO - [facility] [address] [facility] [address] [place] [phone] Brenda Clay MD [address] [facility] [address] [place] [address] 04/15/2026 10:00 AM EDT Office Visit LEATHA Primary Care at [facility] + [facility] [address] [facility] [address] [place] [address] Sena Dominguez PA [address] [facility] [place] [address] documented as of this encounter Visit Diagnoses Not on filedocumented in this encounter Care Teams Leaf Fat Scraper Relationship Specialty Start Date End Date Meme Steel MD [address] [place] [address] 105 [place] [address] PCP - General Pediatrics 06/05/18 04/25/22 No Pcp, Pcp PCP - General 06/08/22 07/19/22 Guadalupe Mcbride MD PCP - General Family Medicine 07/20/22 11/01/23 Sena Dominguez PA [address] [place] [address] [place] [address] PCP - BRADY Physician Vulcanizer Rubber Plate 11/02/23 Levy Barry MD [address] [place] [address] [place] [address] PCP - General Family Medicine 12/20/23 documented as of this encounter
--- OUTSIDE RECORDS SUMMARY | 2025-08-14 15:21 | XMS_ITS | Encounter Summary ---
Author Organization [facility] work ([facility]) Address [address] [facility] [place] [address] Care Team Providers Care Consulting Practice Manager Name Role Phone Meme Steel MD Primary Care Provider [phone] Pcp, Pcp Primary Care Provider Unavailabl Guadalupe Bardales MD Primary Care Provider [phone] Sena Dominguez Unavailable [phone] Levy Barry MD Primary Care Provider Unavailab le Source Comments The information that you have received may contain highly confidential and/or federally protected health information. This information has been disclosed to you from records protected by [facility]. The law prohibits you [...] immediately.[facility] ([facility]) Encounter Details Date Type Department Care Team (Late st Contact Info) Description 11/21/2013 Historical Note [facility] [employer] System Devyn Vásquez MD [address] [place] [address] [phone] Social History Tobacco Use Types Packs/Day Years [...] [facility] [address] [facility] [address] [place] [phone] Brenda Clay MD [address] [facility] [address] [place] [phone] 04/15/2026 10:00 AM EDT Office Visit LEATHA Primary Care at [facility] [address] [facility] [address] [place] [address] Sena Dominguez PA [address] [facility] [place] [address] documented as of this encounter Visit Diagnoses Not on filedocumented in this encounter Care Teams Consulting Practice Manager Relationship Specialty Start Date End Date Meme Steel MD [address] [place] [address] 105 [place] [address] PCP - General Pediatrics 06/05/18 04/25/22 No Pcp, Pcp PCP - General 06/08/22 07/19/22 Guadalupe Mcbride MD PCP - General Family Medicine 07/20/22 11/01/23 Sena Dominguez PA [address] [place] [address] [place] [address] PCP - BRADY Physician Negative Checker 11/02/23 Levy Barry MD [address] [place] [address] [place] [address] PCP - General Family Medicine 12/20/23 documented as of this encounter
--- OUTSIDE RECORDS SUMMARY | 2025-08-14 15:21 | XMS_ITS | Encounter Summary ---
Author Organization [facility] work ([facility]) Address [address] [place] [address] Care Team Providers Care Mud Mill Tender Name Role Phone Sena Dominguez Unavailable [phone] Levy Barry MD Primary Care Provider Unavailab le Source Comments The information that you have received may contain highly confidential and/or federally protected health information. This information has been disclosed to you from records protected by [employer]. The law prohibits you from making any [...] please contact the sender immediately.[facility] ([facility]) Encounter Details Date Type Department Care Team (Latest Contact Info) Description 07/07/2025 Results Follow-Up [facility] Primary Care at [facility] [address] [facility] [address] [place] [phone] Annel Jhaveri PA [address] [place] [phone] Comprehensive metabolic panel, CBC and differential, Lipid [...] 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 1 01/31/2025 Alcohol and Drug [...] Recorded In the past 12 months has [place], gas, oil, or water [employer] threatened to shut off services in your home? No 01/31/2025 Comments No Sex and Gender Information Value Date Recorded Sex Assigned at Not on file Legal Sex Female 1:04 AM EDT Gender Identity Not on file Sexual Orientation Not on file documented as of this encounter Plan of Treatment Upcoming Encounters Date Type Department Care Team ([facility] Contact Info) Description 10/10/2025 10:00 AM EST Office Visit LEATHA CARRILLO [facility] [address] [place] [address] [address] [place] [phone] Brenda Clay MD [address] [place] [address] [place] [phone] 04/15/2026 10:00 AM EDT Office Visit LEATHA Primary Care at [facility] + [address] [place] [phone] Sena Dominguez PA [address] [place] [address] [place] [address] documented as of this encounter Goals Goal Patient Goal Type Associated Problems Recent Progress Patient-Stated? Author Water intake Diet No Teena Snyder RD Note: At least 4, 17 ounces water daily Increase Exercise Exercise Yes Teena Snyder RD Note: Walk dog: at lest 1 x week for 10 minutes (terminal gauger supervisor goal of 150 minutes planned movement weekly) [...] documented as of this encounter Care Teams Mud Mill Tender Relationship Specialty Start Date End Date Sena Dominguez PA [address] [place] [address] [place] [address] PCP - BRADY Physician Financial Institution Branch Manager 11/02/23 Levy Barry MD [address] [place] [address] [place] [address] PCP - General Family Medicine 12/20/23 documented as of this encounter
--- OUTSIDE RECORDS SUMMARY | 2025-08-14 15:21 | XMS_ITS | Encounter Summary ---
Author Organization [facility] work ([facility]) Address [address] [place] [address] Care Team Providers Care Home Health Registered Nurse Name Role Phone Meme Steel MD Primary Care Provider [phone] Pcp, Pcp Primary Care Provider Unavailabl Guadalupe Bardales MD Primary Care Provider [phone] Sena Dominguez Unavailable [phone] Levy Barry MD Primary Care Provider Unavailab le Source Comments The information that you have received may contain highly confidential and/or federally protected health information. This information has been disclosed to you from records protected by [facility]. The law prohibits you [...] contact the sender immediately.[facility] ([facility]) Encounter Details Date Type Department Care Team (Late st Contact Info) Description 01/04/2008 Historical Note [facility] [employer] System Devyn Vásquez MD [address] [place] [address] [phone] Social History Tobacco Use Types Packs/Day Years [...] LEATHA CARRILLO - [facility] [address] [facility] [address] [place] [phone] Brenda Clay MD [address] [facility] [address] [place] [phone] 04/15/2026 10:00 AM EDT Office Visit LEATHA Primary Care at [facility] + [facility] [address] [facility] [address] [place] [phone] Sena Dominguez PA [address] [facility] [place] [address] documented as of this encounter Visit Diagnoses Not on filedocumented in this encounter Care Teams Home Health Registered Nurse Relationship Specialty Start Date End Date Meme Steel MD [address] [place] [address] 105 [place] [address] PCP - General Pediatrics 06/05/18 04/25/22 No Pcp, Pcp PCP - General 06/08/22 07/19/22 Guadalupe Mcbride MD PCP - General Family Medicine 07/20/22 11/01/23 Sena Dominguez PA [address] [place] [address] [place] [address] PCP - BRADY Physician Railroad Maintenance Clerk 11/02/23 Levy Barry MD [address] [place] [address] [place] [address] PCP - General Family Medicine 12/20/23 documented as of this encounter
--- OUTSIDE RECORDS SUMMARY | 2025-08-14 15:21 | XMS_ITS | Encounter Summary ---
Author Organization [facility] work ([facility]) Address [address] [place] [address] Care Team Providers Care Patient Relations Coordinator Name Role Phone Meme Steel MD Primary Care Provider [phone] Pcp, Pcp Primary Care Provider Unavailabl Guadalupe Bardales MD Primary Care Provider [phone] Sena Dominguez Unavailable [phone] Levy Barry MD Primary Care Provider Unavailab le Source Comments The information that you have received may contain highly confidential and/or federally protected health information. This information has been disclosed to you from records protected by [employer] [facility]. The law [...] immediately.[facility] ([facility]) Encounter Details Date Type Department Care Team (Late st Contact Info) Description 08/14/2013 Historical Note [facility] [employer] System Devyn Vásquez MD [address] [place] [address] [phone] Social History Tobacco Use Types Packs/Day Years [...] LEATHA CARRILLO - [facility] [address] [facility] [address] [place] [phone] Brenda Clay MD [address] [facility] [address] [place] [phone] 04/15/2026 10:00 AM EDT Office Visit LEATHA Primary Care at [facility] [address] [facility] [address] [place] [address] Sena Dominguez PA [address] [facility] [place] [address] documented as of this encounter Visit Diagnoses Not on filedocumented in this encounter Care Teams Patient Relations Coordinator Relationship Specialty Start Date End Date Meme Steel MD [address] [place] [address] 105 [place] [address] PCP - General Pediatrics 06/05/18 04/25/22 No Pcp, Pcp PCP - General 06/08/22 07/19/22 Guadalupe Mcbride MD PCP - General Family Medicine 07/20/22 11/01/23 Sena Dominguez PA [address] [place] [address] [place] [address] PCP - BRADY Physician Nonprofit Financial Controller 11/02/23 Levy Barry MD [address] [place] [address] [place] [address] PCP - General Family Medicine 12/20/23 documented as of this encounter
--- OUTSIDE RECORDS SUMMARY | 2025-08-14 15:21 | XMS_ITS | Encounter Summary ---
Author Organization [facility] work ([facility]) Address [address] [place] [address] Care Team Providers Care Nike Athlete Name Role Phone Meme Steel MD Primary Care Provider [phone] Pcp, Pcp Primary Care Provider Unavailabl Guadalupe Bardales MD Primary Care Provider [phone] Sena Dominguez Unavailable [phone] Levy Barry MD Primary Care Provider Unavailab le Source Comments The information that you have received may contain highly confidential and/or federally protected health information. This information has been disclosed to you from records protected by [facility]. The law prohibits [...] the sender immediately.[facility] ([facility]) Encounter Details Date Type Department Care Team (Late st Contact Info) Description 03/24/2008 Historical Note [facility] [employer] System Devyn Vásquez MD [address] [place] [address] [phone] Social History Tobacco Use Types Packs/Day Years [...] LEATHA CARRILLO - [facility] [address] [facility] [address] [place] [phone] Brenda Clay MD [address] [facility] [address] [place] [phone] 04/15/2026 10:00 AM EDT Office Visit LEATHA Primary Care at [facility] [address] [facility] [address] [place] [address] Sena Dominguez PA [address] [facility] [place] [address] documented as of this encounter Visit Diagnoses Not on filedocumented in this encounter Care Teams Nike Athlete Relationship Specialty Start Date End Date Meme Steel MD [address] [place] [address] 105 [place] [address] PCP - General Pediatrics 06/05/18 04/25/22 No Pcp, Pcp PCP - General 06/08/22 07/19/22 Guadalupe Mcbride MD PCP - General Family Medicine 07/20/22 11/01/23 Sena Dominguez PA [address] [place] [address] [place] [address] PCP - BRADY Physician Pharmacy Messenger 11/02/23 Levy Barry MD [address] [place] [address] [place] [address] PCP - General Family Medicine 12/20/23 documented as of this encounter
--- OUTSIDE RECORDS SUMMARY | 2025-08-14 15:21 | XMS_ITS | Encounter Summary ---
Author Organization [facility] work ([facility]) Address [address] [place] [address] Care Team Providers Care Radar Engineer Name Role Phone Meme Steel MD Primary Care Provider [phone] Pcp, Pcp Primary Care Provider Unavailabl Guadalupe Bardales MD Primary Care Provider [phone] Sena Dominguez Unavailable [phone] Levy Barry MD Primary Care Provider Unavailab le Source Comments The information that you have received may contain highly confidential and/or federally protected health information. This information has been disclosed to you from records protected by [facility]. The law prohibits you from [...] contact the sender immediately.[facility] ([facility]) Encounter Details Date Type Department Care Team (Late st Contact Info) Description 03/24/2008 Historical Note [facility] [employer] System Devyn Vásquez MD [address] [place] [address] [phone] Social History Tobacco Use Types Packs/Day Years [...] CARRILLO - [facility] [address] [facility] [address] [place] [phone] Brenda Clay MD [address] [facility] [address] [place] [phone] 04/15/2026 10:00 AM EDT Office Visit LEATHA Primary Care at [facility] [address] [facility] [address] [place] [address] Sena Dominguez PA [address] [facility] [place] [address] documented as of this encounter Visit Diagnoses Not on filedocumented in this encounter Care Teams Radar Engineer Relationship Specialty Start Date End Date Meme Steel MD [address] [place] [address] 105 [place] [address] PCP - General Pediatrics 06/05/18 04/25/22 No Pcp, Pcp PCP - General 06/08/22 07/19/22 Guadalupe Mcbride MD PCP - General Family Medicine 07/20/22 11/01/23 Sena Dominguez PA [address] [place] [address] [place] [address] PCP - BRADY Physician Balance Staff Staker 11/02/23 Levy Barry MD [address] [place] [address] [place] [address] PCP - General Family Medicine 12/20/23 documented as of this encounter
--- OUTSIDE RECORDS SUMMARY | 2025-08-14 15:21 | XMS_ITS | Encounter Summary ---
Author Organization [facility] work ([facility]) Address [address] [place] [address] Care Team Providers Care Ground Crew Supervisor Name Role Phone Meme Steel MD Primary Care Provider [phone] Pcp, Pcp Primary Care Provider Unavailabl Guadalupe Bardales MD Primary Care Provider [phone] Sena Dominguez Unavailable [phone] Levy Barry MD Primary Care Provider Unavailab le Source Comments The information that you have received may contain highly confidential and/or federally protected health information. This information has been disclosed to you from records protected by [facility]. The law prohibits you from [...] please contact the sender immediately.[facility] ([facility]) Encounter Details Date Type Department Care Team (Late st Contact Info) Description 01/02/2014 Historical Note [facility] nvite System Devyn Vásquez MD [address] [place] [address] [phone] Social History Tobacco Use Types Packs/Day Years [...] CARRILLO - [facility] at [facility] [address] [facility] [address] [place] [phone] Brenda Clay MD [address] [facility] [address] [place] [address] 04/15/2026 10:00 AM EDT Office Visit [facility] [address] [facility] [address] [place] [address] Sena Dominguez PA [address] [facility] [place] [address] documented as of this encounter Visit Diagnoses Not on filedocumented in this encounter Care Teams Ground Crew Supervisor Relationship Specialty Start Date End Date Meme Steel MD [address] [place] [address] 105 [place] [address] PCP - General Pediatrics 06/05/18 04/25/22 No Pcp, Pcp PCP - General 06/08/22 07/19/22 Guadalupe Mcbride MD PCP - General Family Medicine 07/20/22 11/01/23 Sena Dominguez PA [address] [place] [address] [place] [address] PCP - BRADY Physician Construction Services Technician 11/02/23 Levy Barry MD [address] [place] [address] [place] [address] PCP - General Family Medicine 12/20/23 documented as of this encounter
--- OUTSIDE RECORDS SUMMARY | 2025-08-14 15:21 | XMS_ITS | Encounter Summary ---
Author Organization [facility] work ([facility]) Address [address] [place] [address] Care Team Providers Care Manager Transportation Planning Name Role Phone Meme Steel MD Primary Care Provider [phone] Pcp, Pcp Primary Care Provider Unavailabl Guadalupe Bardales MD Primary Care Provider [phone] Sena Dominguez Unavailable [phone] Levy Barry MD Primary Care Provider Unavailab le Source Comments The information that you have received may contain highly confidential and/or federally protected health information. This information has been disclosed to you from records protected by [facility]. The law prohibits you from [...] sender immediately.[facility] ([facility]) Encounter Details Date Type Department Care Team (Late st Contact Info) Description 11/07/2014 Historical Note [facility] SecondHome System Devyn Vásquez MD [address] [place] [address] [phone] Social History Tobacco Use Types Packs/Day Years [...] Visit LEATHA CARRILLO - [facility] [address] [facility] [address] [place] [phone] Brenda Clay MD [address] [facility] [address] [place] [address] 04/15/2026 10:00 AM EDT Office Visit [facility]HA [facility] at [facility] + [facility] [address] [facility] [address] [place] [address] Sena Dominguez PA [address] [facility] [place] [address] documented as of this encounter Visit Diagnoses Not on filedocumented in this encounter Care Teams Manager Transportation Planning Relationship Specialty Start Date End Date Meme Steel MD [address] [place] [address] 105 [place] [address] PCP - General Pediatrics 06/05/18 04/25/22 No Pcp, Pcp PCP - General 06/08/22 07/19/22 Guadalupe Mcbride MD PCP - General Family Medicine 07/20/22 11/01/23 Sena Dominguez PA [address] [place] [address] [place] [address] PCP - BRADY Physician Milking Machine Technician 11/02/23 Levy Barry MD [address] [place] [address] [place] [address] PCP - General Family Medicine 12/20/23 documented as of this encounter
--- OUTSIDE RECORDS SUMMARY | 2025-08-14 15:21 | XMS_ITS | Encounter Summary ---
Author Organization [facility] work ([facility]) Address [address] [place] [address] Care Team Providers Care Receiving Weigher Name Role Phone Meme Steel MD Primary Care Provider [phone] Pcp, Pcp Primary Care Provider Unavailabl Guadalupe Bardales MD Primary Care Provider [phone] Sena Dominguez Unavailable [phone] Levy Barry MD Primary Care Provider Unavailab le Source Comments The information that you have received may contain highly confidential and/or federally protected health information. This information has been disclosed to you from records protected by [facility]. The law prohibits you from making [...] please contact the sender immediately.[facility] ([facility]) Encounter Details Date Type Department Care Team (Late st Contact Info) Description 09/17/2013 Historical Note [facility] TruHearing System Devyn Vásquez MD [address] [place] [address] [phone] Social History Tobacco Use Types Packs/Day Years [...] LEATHA CARRILLO - [facility] at [facility] [address] [facility] [address] [place] [phone] Brenda Clay MD [address] [facility] [address] [place] [address] 04/15/2026 10:00 AM EDT Office Visit LEATHA [facility] at [facility] + [facility] [address] [facility] [address] [place] [address] Sena Dominguez PA [address] [facility] [place] [address] documented as of this encounter Visit Diagnoses Not on filedocumented in this encounter Care Teams Receiving Weigher Relationship Specialty Start Date End Date Meme Steel MD [address] [place] [address] 105 [place] [address] PCP - General Pediatrics 06/05/18 04/25/22 No Pcp, Pcp PCP - General 06/08/22 07/19/22 Guadalupe Mcbride MD PCP - General Family Medicine 07/20/22 11/01/23 Sena Dominguez PA [address] [place] [address] [place] [address] PCP - BRADY Physician Roofing Plant Supervisor 11/02/23 Levy Barry MD [address] [place] [address] [place] [address] PCP - General Family Medicine 12/20/23 documented as of this encounter
--- OUTSIDE RECORDS SUMMARY | 2025-08-14 15:21 | XMS_ITS | Encounter Summary ---
Author Organization [facility] work ([facility]) Address [address] [place] [address] Care Team Providers Care Fbi Sharpshooter Name Role Phone Meme Steel MD Primary Care Provider [phone] Pcp, Pcp Primary Care Provider Unavailabl Guadalupe Bardales MD Primary Care Provider [phone] Sena Dominguez Unavailable [phone] Levy Barry MD Primary Care Provider Unavailab le Source Comments The information that you have received may contain highly confidential and/or federally protected health information. This information has been disclosed to you from records protected by [facility]. The law prohibits you from [...] sender immediately.[facility] ([facility]) Encounter Details Date Type Department Care Team (Late st Contact Info) Description 08/13/2013 Historical Note [facility] Intrinsic LifeSciences System Devyn Vásquez MD [address] [place] [address] [phone] Social History Tobacco Use Types Packs/Day Years [...] - [facility] [address] [facility] [address] [place] [phone] Brenda Clay MD [address] [facility] [address] [place] [address] 04/15/2026 10:00 AM EDT Office Visit [facility]HA [facility] at [facility] [address] [facility] [address] [place] [address] Sena Dominguez PA [address] [facility] [place] [address] documented as of this encounter Visit Diagnoses Not on filedocumented in this encounter Care Teams Fbi Sharpshooter Relationship Specialty Start Date End Date Meme Steel MD [address] [place] [address] 105 [place] [address] PCP - General Pediatrics 06/05/18 04/25/22 No Pcp, Pcp PCP - General 06/08/22 07/19/22 Guadalupe Mcbride MD PCP - General Family Medicine 07/20/22 11/01/23 Sena Dominguez PA [address] [place] [address] [place] [address] PCP - BRADY Physician Obstetrics Technician 11/02/23 Levy Barry MD [address] [place] [address] [place] [address] PCP - General Family Medicine 12/20/23 documented as of this encounter
--- OUTSIDE RECORDS SUMMARY | 2025-08-14 15:21 | XMS_ITS | Encounter Summary ---
Author Organization [facility] work ([facility]) Address [address] [place] [address] Care Team Providers Care Employee Service Officer Name Role Phone Meme Steel MD Primary Care Provider [phone] Pcp, Pcp Primary Care Provider Unavailabl Guadalupe Bardales MD Primary Care Provider [phone] Sena Dominguez Unavailable [phone] Levy Barry MD Primary Care Provider Unavailab le Source Comments The information that you have received may contain highly confidential and/or federally protected health information. This information has been disclosed to you from records protected by [facility]. The law prohibits you [...] contact the sender immediately.[facility] ([facility]) Encounter Details Date Type Department Care Team (Late st Contact Info) Description 06/06/2008 Historical Note [facility] Devyn Vásquez MD [address] [place] [address] [phone] Social History Tobacco Use Types Packs/Day Years [...] Visit LEATHA CARRILLO - [facility] [address] [facility] [address] [place] [phone] Brenda Clay MD [address] [facility] [address] [place] [address] 04/15/2026 10:00 AM EDT Office Visit LE[facility]HA [facility] at [facility] [address] [facility] [address] [place] [address] Sena Dominguez PA [address] [facility] [place] [address] documented as of this encounter Visit Diagnoses Not on filedocumented in this encounter Care Teams Employee Service Officer Relationship Specialty Start Date End Date Meme Steel MD [address] [place] [address] 105 [place] [address] PCP - General Pediatrics 06/05/18 04/25/22 No Pcp, Pcp PCP - General 06/08/22 07/19/22 Guadalupe Mcbride MD PCP - General Family Medicine 07/20/22 11/01/23 Sena Dominguez PA [address] [place] [address] [place] [address] PCP - BRADY Physician Deboner 11/02/23 Levy Barry MD [address] [place] [address] [place] [address] PCP - General Family Medicine 12/20/23 documented as of this encounter
--- OUTSIDE RECORDS SUMMARY | 2025-08-14 15:21 | XMS_ITS | Encounter Summary ---
Author Organization [facility] work ([facility]) Address [address] [place] [address] Care Team Providers Care Loss Control Consultant Name Role Phone Meme Steel MD Primary Care Provider [phone] Pcp, Pcp Primary Care Provider Unavailabl Guadalupe Bardales MD Primary Care Provider [phone] Sena Dominguez Unavailable [phone] Levy Barry MD Primary Care Provider Unavailab le Source Comments The information that you have received may contain highly confidential and/or federally protected health information. This information has been disclosed to you from records protected by [facility]. The law prohibits [...] sender immediately.[facility] ([facility]) Encounter Details Date Type Department Care Team (Late st Contact Info) Description 11/21/2013 Historical Note [facility] Openet System Devyn Vásquez MD [address] [place] [address] [phone] Social History Tobacco Use Types Packs/Day Years [...] CARRILLO - [facility] [address] [facility] [address] [place] [phone] Brenda Clay MD [address] [facility] [address] [place] [address] 04/15/2026 10:00 AM EDT Office Visit LEATHA [facility] at [facility] + [facility] [address] [facility] [address] [place] [address] Sena Dominguez PA [address] [facility] [place] [address] documented as of this encounter Visit Diagnoses Not on filedocumented in this encounter Care Teams Loss Control Consultant Relationship Specialty Start Date End Date Meme Steel MD [address] [place] [address] [place] [address] PCP - General Pediatrics 06/05/18 04/25/22 No Pcp, Pcp PCP - General 06/08/22 07/19/22 Guadalupe Mcbride MD PCP - General Family Medicine 07/20/22 11/01/23 Sena Dominguez PA [address] [place] [address] [place] [address] PCP - BRADY Physician Tilt Tray Driver 11/02/23 Levy Barry MD [address] [place] [address] [place] [address] PCP - General Family Medicine 12/20/23 documented as of this encounter
--- OUTSIDE RECORDS SUMMARY | 2025-08-14 15:21 | XMS_ITS | Encounter Summary ---
Author Organization [facility] work ([facility]) Address [address] [place] [address] Care Team Providers Care Chief Ophthalmic Technician Name Role Phone Meme Steel MD Primary Care Provider [phone] Pcp, Pcp Primary Care Provider Unavailabl Guadalupe Bradales MD Primary Care Provider [phone] Sena Dominguez Unavailable [phone] Levy Barry MD Primary Care Provider Unavailab le Source Comments The information that you have received may contain highly confidential and/or federally protected health information. This information has been disclosed to you from records protected by [facility]. The law prohibits you from [...] please contact the sender immediately.[facility] ([facility]) Encounter Details Date Type Department Care Team (Late st Contact Info) Description 06/06/2008 Historical Note [facility] Dapper System Devyn Vásquez MD [address] [place] [address] [phone] Social History Tobacco Use Types Packs/Day Years [...] CARRILLO - [facility] [address] [facility] [address] [place] [phone] Brenda Clay MD [address] [facility] [address] [place] [phone] 04/15/2026 10:00 AM EDT Office Visit LE[facility]HA [facility] [address] [facility] [address] [place] [address] Sena Dominguez PA [address] [facility] [place] [address] documented as of this encounter Visit Diagnoses Not on filedocumented in this encounter Care Teams Chief Ophthalmic Technician Relationship Specialty Start Date End Date Meme Steel MD [address] [place] [address] 105 [place] [address] PCP - General Pediatrics 06/05/18 04/25/22 No Pcp, Pcp PCP - General 06/08/22 07/19/22 Guadalupe Mcbride MD PCP - General Family Medicine 07/20/22 11/01/23 Sena Dominguez PA [address] [place] [address] [place] [address] PCP - BRADY Physician Bridge Saw Operator 11/02/23 Levy Barry MD [address] [place] [address] [place] [address] PCP - General Family Medicine 12/20/23 documented as of this encounter
--- OUTSIDE RECORDS SUMMARY | 2025-08-14 15:21 | XMS_ITS | Encounter Summary ---
Author Organization [facility] work ([facility]) Address [address] [place] [address] Care Team Providers Care Oceanography Professor Name Role Phone Meme Steel MD Primary Care Provider [phone] Pcp, Pcp Primary Care Provider Unavailabl Guadalupe Bardales MD Primary Care Provider Sena Dominguez Unavailable [phone] Levy Barry MD Primary Care Provider Unavailab le Source Comments The information that you have received may contain highly confidential and/or federally protected health information. This information has been disclosed to you from records protected by [facility]. The law prohibits [...] please contact the sender immediately.[facility] ([facility]) Encounter Details Date Type Department Care Team (Late st Contact Info) Description 01/24/2013 Historical Note [facility] [employer] System Devyn Vásquez MD [address] [place] [address] [phone] Social History Tobacco Use Types Packs/Day Years [...] CARRILLO - [facility] [address] [facility] [facility] [address] [place] [phone] Brenda Clay MD [address] [facility] [address] [place] [address] 04/15/2026 10:00 AM EDT Office Visit LEATHA Primary Care at [facility] + [facility] [address] [facility] [address] [place] [address] Sena Dominguez PA [address] [facility] [place] [address] documented as of this encounter Visit Diagnoses Not on filedocumented in this encounter Care Teams Oceanography Professor Relationship Specialty Start Date End Date Meme Steel MD [address] [place] [address] 105 [place] [address] PCP - General Pediatrics 06/05/18 04/25/22 No Pcp, Pcp PCP - General 06/08/22 07/19/22 Guadalupe Mcbride MD PCP - General Family Medicine 07/20/22 11/01/23 Sena Dominguez PA [address] [place] [address] [place] [address] PCP - BRADY Physician Tooling Specialist 11/02/23 Levy Barry MD [address] [place] [address] [place] [address] PCP - General Family Medicine 12/20/23 documented as of this encounter
--- OUTSIDE RECORDS SUMMARY | 2025-08-14 15:21 | XMS_ITS | Encounter Summary ---
Author Organization [facility] work ([facility]) Address [address] [place] [address] Care Team Providers Care Donor Recruiter Name Role Phone Meme Steel MD Primary Care Provider No Pcp, Pcp Primary Care Provider Unavailabl Guadalupe Bardales MD Primary Care Provider [phone] Sena Dominguez Unavailable [phone] Levy Barry MD Primary Care Provider Unavailab le Source Comments The information that you have received may contain highly confidential and/or federally protected health information. This information has been disclosed to you from records protected by [facility]. The law prohibits you from making [...] error, please contact the sender immediately.[facility] ([facility]) Encounter Details Date Type Department Care Team (Late st Contact Info) Description 11/21/2013 Historical Note [facility] Coomuna System Devyn Vásquez MD [address] [place] [address] [phone] Social History Tobacco Use Types Packs/Day Years [...] CARRILLO - [facility] [address] [facility] [address] [place] [phone] Brenda Clay MD [address] [facility] [address] [place] [phone] 04/15/2026 10:00 AM EDT Office Visit LEATHA Primary [facility] at [facility] + [facility] [address] [facility] [address] [place] [address] Sena Dominguez PA [address] [facility] [place] [address] documented as of this encounter Visit Diagnoses Not on filedocumented in this encounter Care Teams Donor Recruiter Relationship Specialty Start Date End Date Meme Steel MD [address] [place] [address] [place] [address] PCP - General Pediatrics 06/05/18 04/25/22 No Pcp, Pcp PCP - General 06/08/22 07/19/22 Guadalupe Mcbride MD PCP - General Family Medicine 07/20/22 11/01/23 Sena Dominguez PA [address] [place] [address] [place] [address] PCP - BRADY Physician New Client Banking Services Clerk 11/02/23 Levy Barry MD [address] [place] [address] [place] [address] PCP - General Family Medicine 12/20/23 documented as of this encounter
--- OUTSIDE RECORDS SUMMARY | 2025-08-14 15:21 | XMS_ITS | Encounter Summary ---
Author Organization [facility] work ([facility]) Address [address] [place] [address] Care Team Providers Care Jewel Hole Rough Opener Name Role Phone Meme Steel MD Primary Care Provider [phone] No Pcp, Pcp Primary Care Provider Unavailabl Guadalupe Bardales MD Primary Care Provider [phone] Sena Dominguez Unavailable [phone] Levy Barry MD Primary Care Provider Unavailab le Source Comments The information that you have received may contain highly confidential and/or federally protected health information. This information has been disclosed to you from records protected by [facility]. The law prohibits you [...] sender immediately.[facility] ([facility]) Encounter Details Date Type Department Care Team (Late st Contact Info) Description 09/22/2014 Historical Note [facility] InflowControl System Devyn Vásquez MD [address] [place] [address] [phone] Social History Tobacco Use Types Packs/Day Years [...] Visit LEATHA CARRILLO - [facility] [address] [facility] [address] [place] [phone] Brenda Clay MD [address] [facility] [address] [place] [address] 04/15/2026 10:00 AM EDT Office Visit LEATHA [facility] at [facility] + [facility] [address] [facility] [address] [place] [address] Sena Dominguez PA [address] [facility] [place] [address] documented as of this encounter Visit Diagnoses Not on filedocumented in this encounter Care Teams Jewel Hole Rough Opener Relationship Specialty Start Date End Date Meme Steel MD [address] [place] [address] [place] [address] PCP - General Pediatrics 06/05/18 04/25/22 No Pcp, Pcp PCP - General 06/08/22 07/19/22 Guadalupe Mcbride MD PCP - General Family Medicine 07/20/22 11/01/23 Sena Dominguez PA [address] [place] [address] [place] [address] PCP - BRADY Physician Junior Designer 11/02/23 Levy Barry MD [address] [place] [address] [place] [address] PCP - General Family Medicine 12/20/23 documented as of this encounter
--- OUTSIDE RECORDS SUMMARY | 2025-08-14 15:21 | XMS_ITS | Encounter Summary ---
Author Organization [facility] work ([facility]) Address [address] [place] [address] Care Team Providers Care Primary Products Inspectors Name Role Phone Meme Steel MD Primary Care Provider [phone] Pcp, Pcp Primary Care Provider Unavailabl Guadalupe Bardales MD Primary Care Provider [phone] Sena Dominguez Unavailable [phone] Levy Barry MD Primary Care Provider Unavailab le Source Comments The information that you have received may contain highly confidential and/or federally protected health information. This information has been disclosed to you from records protected by [facility]. The law prohibits [...] please contact the sender immediately.[facility] ([facility]) Encounter Details Date Type Department Care Team (Late st Contact Info) Description 08/21/2014 Historical Note [facility] [employer] System Devyn Vásquez MD [address] [place] [address] [phone] Social History Tobacco Use Types Packs/Day Years [...] Visit LEATHA CARRILLO - [facility] [address] [facility] [address] [place] [phone] Brenda Clay MD [address] [facility] [address] [place] [phone] 04/15/2026 10:00 AM EDT Office Visit [facility] [address] [facility] [address] [place] [address] Sena Dominguez PA [address] [facility] [place] [address] documented as of this encounter Visit Diagnoses Not on filedocumented in this encounter Care Teams Primary Products Inspectors Relationship Specialty Start Date End Date Meme Steel MD [address] [place] [address] 105 [place] [address] PCP - General Pediatrics 06/05/18 04/25/22 No Pcp, Pcp PCP - General 06/08/22 07/19/22 Guadalupe Mcbride MD PCP - General Family Medicine 07/20/22 11/01/23 Sena Dominguez PA [address] [place] [address] [place] [address] PCP - BRADY Physician Sports Writer 11/02/23 Levy Barry MD [address] [place] [address] [place] [address] PCP - General Family Medicine 12/20/23 documented as of this encounter
== END 2025-08-14 15:15 | disposition home or self-care (01) ==
LOC: HO.HOS 13:43
PROVIDERS: Visit Provider Physician Assistant
DX: S82.831A Other fracture of upper and lower end of right fibula, initial encounter for closed fracture (principal)
CPT/HCPCS: 29405; 99024

== ENCOUNTER → 2025-08-14 13:42 | Outpatient (BNVA) | payer OTHER, SELFPAY | PROVIDERS: Visit Provider Physician Assistant | DX: S82.831D Other fracture of upper and lower end of right fibula, subsequent encounter for closed fracture with routine healing (principal) | CPT/HCPCS: 29405 ==

== ENCOUNTER 2025-08-21 08:09 | Outpatient (REF) | payer OTHER, SELFPAY ==
--- NOTE | ~2025-08-21 | XR_ITS ---
EXAMINATION: XR ANKLE 3 OR MORE VIEWS RIGHT HISTORY: M25.571 - Pain in right ankle and joints of right foot COMPARISON: Comparison is made with the prior examination dated 07/26/2025. FINDINGS: Three views of the right ankle are submitted. Osseous mineralization is normal. The patient is status post internal fixation of the previously seen fracture of the distal fibula with a sideplate and multiple orthopedic screws. A button is seen along the medial malleolus. Alignment is anatomic. The joint spaces are preserved. The soft tissues are unremarkable. XR/XR ankle RT min 3V IMPRESSION: Internal fixation of the previously seen fracture of the distal fibula. Electronically signed by: Rick Kim MD 08/21/2025 09:28 AM EDT
== END 2025-08-21 08:10 | disposition home or self-care (01) ==
LOC: HO.HOSX 08:09
PROVIDERS: Visit Provider Physician Assistant
DX: S82.831A Other fracture of upper and lower end of right fibula, initial encounter for closed fracture (principal); X58.XXXA Exposure to other specified factors, initial encounter
CPT/HCPCS: 29405; 73610

== ENCOUNTER 2025-08-21 09:03 | Outpatient (AMB) | payer OTHER, SELFPAY ==
--- NOTE | 2025-08-21 09:27 | A.OFFVIS_ITS ---
Intake Visit Reasons: PO RT ankle ORIF 08/05/25 NE-Cast off-staple remova Intake Note: Kimber is a 20 year old female who presents today for a post operative appointment status post right ankle ORIF, performed by Dr. Fernández on 08/05/2025. Patient reports she is doing well, states no pain and itchiness at incision a reas. Allergies No Known Allergies Allergy (Verified 08/21/25 09:28) Medication List - Last Reconciled 08/21/25 by Nayeli Perez PA-C fexofenadine 180 mg PO DAILY fluoxetine 40 mg PO DAILY levothyroxine 25 mcg PO DAILY lorazepam 2 mg PO BEDTIME PRN norethindrone-e.estradiol-iron 1 mg-20 mcg (21)/75 mg (7) (Aurovela Fe 1-20 (28)) 1 tab PO DAILY oxycodone 5 mg PO Q4H PRN 7 days propranolol ER 60 mg PO DAILY HPI HPI PO RT ankle ORIF 08/05/25 NE-Cast off-staple remova: Details: 20-year-old female returns to the office today status post right ankle ORIF on 08/05/[address] Fernández. She is doing well with no concerns today. 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 [place] clean dry and intact. Sensation intact. Pulses present. Office Procedures Casting/Splints 87795-[employer] Leg Cast Application Procedure code (CPT) selection complete Results Reviewed Results Reviewed: X-rays of the right ankle obtained in the office today and reviewed by me show intact orthopedic hardware with ankle mortise intact Assessment & Plan Assessment & Plan (1) Closed fracture of right distal fibula: Code(s): S82.831A - Other fracture of upper and lower end of right fibula, initial encounter for closed fracture Category: Medical Plan: [place] removed today and Steri-Strips applied. She was placed in a short-leg cast today nonweightbearing. She will continue to work on elevation for swelling control. I will see her back in 4 weeks with cast off and x-rays in the plan at that time would be to place her in a boot to begin weight-bearing as tolerated with physical therapy. Orders: Orders XR ankle RT min 3V Today M25.571 - Pain in right ankle and joints of right foot Coding Level of Care Code Global (97795) Diagnoses Closed fracture of right distal fibula S82.831A CPT Codes Casting - CPT: 26030-Bmwtu Leg Cast Application ([id number])
== END 2025-08-21 10:29 | disposition home or self-care (01) ==
LOC: HO.HOS 09:04
PROVIDERS: Visit Provider Physician Assistant
DX: S82.831A Other fracture of upper and lower end of right fibula, initial encounter for closed fracture (principal)
CPT/HCPCS: 29405; 99024

== ENCOUNTER → 2025-08-21 09:05 | Outpatient (BNV) | payer OTHER, SELFPAY | PROVIDERS: Visit Provider Radiology Diagnostic Radiology | DX: M25.571 Pain in right ankle and joints of right foot (principal) | CPT/HCPCS: 73610 ==

== ENCOUNTER 2025-09-18 08:45 | Outpatient (REF) | payer OTHER, SELFPAY ==
--- NOTE | ~2025-09-18 | XR_ITS ---
EXAMINATION: XR ANKLE, RIGHT CLINICAL INFORMATION: M25.571 - Pain in right ankle and joints of right foot COMPARISON: Radiographs on August 21, 2025 TECHNIQUE: AP, lateral, and mortise views of the right ankle. FINDINGS: Follow-up of internally fixated distal fibular fracture; fracture line is not well seen, presumably due to healing. The hardware appears intact, and without abnormal perihardware lucency. No acute fractures. Normal alignment. Joint spaces are preserved. Skin adalgisa have been removed. XR/XR ankle RT min 3V IMPRESSION: Follow-up of internally fixated healing distal fibular fracture. Good alignment. Electronically signed by: Sulaiman Gray MD 09/18/2025 11:12 AM WHIT
== END 2025-09-18 08:46 | disposition home or self-care (01) ==
LOC: HO.HOSX 08:45
PROVIDERS: Visit Provider Physician Assistant
DX: S82.831D Other fracture of upper and lower end of right fibula, subsequent encounter for closed fracture with routine healing (principal)
CPT/HCPCS: 73610

== ENCOUNTER 2025-09-18 10:03 | Outpatient (AMB) | payer OTHER, SELFPAY ==
--- NOTE | 2025-09-18 10:11 | MHC.OFFVIS ---
Intake Visit Reasons: PO- ORIF rt ankle 08/05/25 w xrays Intake Note: Kimber is a 20 year old female who presents today for a post operative appointment status post right ankle ORIF, performed by Dr. Fernández on 08/05/2025. At her last visit she was placed in a short leg cast. Instructed to continue to elevate for swelling control. Follow up in 4 weeks with cast off and x-rays. Today patient reports that she does not really have pain, just an achy feeling. States in resting positions she believes she feels the hardware. Allergies No Known Allergies Allergy (Verified 09/18/25 10:31) Medication List - Last Reconciled 09/18/25 by Nayeli Perez PA-C fexofenadine 180 mg PO DAILY fluoxetine 40 mg PO DAILY levothyroxine 25 mcg PO DAILY lorazepam 2 mg PO BEDTIME PRN norethindrone-e.estradiol-iron 1 mg-20 mcg (21)/75 mg (7) (Aurovela Fe 1-20 (28)) 1 tab PO DAILY propranolol ER 60 mg PO DAILY HPI HPI PO- ORIF rt ankle 08/05/25 w xrays: Details: 20-year-old female returns to the office today 6 weeks status post ORIF of the right ankle 08/05/[address] Fernández. She comes out of the cast today. She has no concerns today. 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 [place] clean dry and intact. Sensation intact. Pulses present. Results Reviewed Results Reviewed: X-rays of the right ankle obtained in the office today show orthopedic hardware intact with ankle mortise intact. Assessment & Plan Assessment & Plan (1) Closed fracture of right distal fibula: Code(s): S82.831A - Other fracture of upper and lower end of right fibula, initial encounter for closed fracture Category: Medical Qualifiers: Encounter type: subsequent encounter Fracture healing: with routine healing Plan: Patient was fit for a tall boot she can weightbear as tolerated. I also placed an order for physical therapy to begin range of motion gentle strengthening proprioceptive training. She will be returning back home for the holidays in approximately 6 weeks therefore I would like for her to come back just before she leaves to have 1 final x-ray and transitioned to a lace-up ankle brace. She understands she needs to wear the boot at all times while ambulating. She can remove for rest and hygiene. She will see me back with x-rays, sooner if needed. Orders: Orders PT Evaluation and Treatment Today S82.831A - Other fracture of upper and lower end of right fibula, initial encounter for closed fracture XR ankle RT min 3V Today M25.571 - Pain in right ankle and joints of right foot Coding Level of Care Code Global (59601) Diagnoses Closed fracture of right distal fibula S82.831A Encounter type: subsequent encounter Fracture healing: with routine healing
--- OUTSIDE RECORDS SUMMARY | 2025-09-18 11:36 | XMS_ITS | Encounter Summary ---
Author Organization [facility] work ([facility]) Address [address] [place] [address] Care Team Providers Care Bus Inspector Name Role Phone Meme Steel MD Primary Care Provider [phone] No Pcp, Pcp Primary Care Provider Guadalupe Sosa MD Primary Care Provider [phone] Sena Dominguez Unavailable [phone] Levy Barry MD Primary Care Provider [phone] Source Comments The information that you have received may contain highly confidential and/or federally protected health information. This information has been disclosed to you from records protected by [facility]. The law prohibits you from making any [...] the sender immediately.[facility] ([facility]) Encounter Details Date Type Department Care Team (Late st Contact Info) Description 2004 Historical Note [facility] [employer] System Devyn Vásquez MD [address] [place] [address] [phone] Social History Tobacco Use Types Packs/Day Years Used Date Smoking Tobacco: Never Assessed Comments Unknown Sex and Gender Information Value Date Recorded Sex Assigned at Not on file Legal Sex Female 1:04 AM EDT Gender Identity Not on file Sexual Orientation Not on file documented as of this encounter Plan of Treatment Upcoming Encounters Date Type Department Care Team ([facility] st Contact Info) Description 10/10/2025 10:00 AM EST Office Visit LEATHA CARRILLO - [facility] [address] [facility] [address] [place] [phone] Brenda Clay MD [address] [facility] [address] [place] [phone] 04/15/2026 10:00 AM EDT Office Visit [facility]HA [facility] at [facility] [address] [facility] [address] [place] [phone] Sena Dominguez PA [address] [facility] [place] [address] documented as of this encounter Visit Diagnoses Not on filedocumented in this encounter Care Teams Bus Inspector Relationship Specialty Start Date End Date Meme Steel MD [address] [place] [address] 105 [place] [address] PCP - General Pediatrics 06/05/18 04/25/22 No Pcp, Pcp PCP - General 06/08/22 07/19/22 Guadalupe Mcbride MD PCP - General Family Medicine 07/20/22 11/01/23 Sena Dominguez PA [address] [place] [address] [place] [address] PCP - BRADY Physician Dustless Operator 11/02/23 Levy Barry MD [address] [place] [address] [place] [address] PCP - General Family Medicine 12/20/23 documented as of this encounter
--- OUTSIDE RECORDS SUMMARY | 2025-09-18 11:36 | XMS_ITS | Encounter Summary ---
Author Organization [facility] work ([facility]) Address [address] [place] [address] Care Team Providers Care Heating Plant Superintendent Name Role Phone Meme Steel MD Primary Care Provider [phone] Pcp, Pcp Primary Care Provider Guadalupe Sosa MD Primary Care Provider [phone] Sena Dominguez Unavailable [phone] Levy Barry MD Primary Care Provider [phone] Source Comments The information that you have received may contain highly confidential and/or federally protected health information. This information has been disclosed to you from records protected by [facility]. The law prohibits you from making any [...] the sender immediately.[facility] ([facility]) Encounter Details Date Type Department Care Team (Late st Contact Info) Description 11/14/2006 Historical Note [facility] [employer] System Devyn Vásquez MD [address] [place] [address] [phone] Social History Tobacco Use Types Packs/Day Years Used Date Smoking Tobacco: Never Assessed Comments Unknown Sex and Gender Information Value Date Recorded Sex Assigned at Not on file Legal Sex Female 1:04 AM EDT Gender Identity Not on file Sexual Orientation Not on file documented as of this encounter Plan of Treatment Upcoming Encounters Date Type Department Care Team ([facility] st Contact Info) Description 10/10/2025 10:00 AM EST Office Visit LEATHA CARRILLO - [facility] [address] [facility] [address] [place] [phone] Brenda Clay MD [address] [facility] [address] [place] [phone] 04/15/2026 10:00 AM EDT Office Visit [facility]HA [facility] at [facility] [address] [facility] [address] [place] [phone] Sena Dominguez PA [address] [facility] [place] [address] documented as of this encounter Visit Diagnoses Not on filedocumented in this encounter Care Teams Heating Plant Superintendent Relationship Specialty Start Date End Date Meme Steel MD [address] [place] [address] 105 [place] [address] PCP - General Pediatrics 06/05/18 04/25/22 No Pcp, Pcp PCP - General 06/08/22 07/19/22 Guadalupe Mcbride MD PCP - General Family Medicine 07/20/22 11/01/23 Sena Dominguez PA [address] [place] [address] [place] [address] PCP - BRADY Physician Roll Off Driver 11/02/23 Levy Barry MD [address] [place] [address] [place] [address] PCP - General Family Medicine 12/20/23 documented as of this encounter
--- OUTSIDE RECORDS SUMMARY | 2025-09-18 11:36 | XMS_ITS | Encounter Summary ---
Author Organization [facility] work ([facility]) Address [address] [place] [address] Care Team Providers Care Event Sales Representative Name Role Phone Meme Steel MD Primary Care Provider [phone] Pcp, Pcp Primary Care Provider Guadalupe Sosa MD Primary Care Provider [phone] Sena Dominguez Unavailable [phone] Lvey Barry MD Primary Care Provider [phone] Source Comments The information that you have received may contain highly confidential and/or federally protected health information. This information has been disclosed to you from records protected by [facility]. The law prohibits you from making any [...] contact the sender immediately.[facility] ([facility]) Encounter Details Date Type Department Care Team (Late st Contact Info) Description 2004 Historical Note [facility] [employer] System Devyn Vásquez MD [address] [place] [address] [phone] Social History Tobacco Use Types Packs/Day Years Used Date Smoking Tobacco: Never Assessed Comments Unknown Sex and Gender Information Value Date Recorded Sex Assigned at Not on file Legal Sex Female 1:04 AM EDT Gender Identity Not on file Sexual Orientation Not on file documented as of this encounter Plan of Treatment Upcoming Encounters Date Type Department Care Team ([facility] st Contact Info) Description 10/10/2025 10:00 AM EST Office Visit LEATHA CARRILLO - [facility] at [facility] [address] [facility] [address] [place] [phone] Brenda Clay MD [address] [facility] [address] [place] [phone] 04/15/2026 10:00 AM EDT Office Visit [facility]HA [facility] at [facility] [address] [facility] [address] [place] [phone] Sena Dominguez PA [address] [facility] [place] [address] documented as of this encounter Visit Diagnoses Not on filedocumented in this encounter Care Teams Event Sales Representative Relationship Specialty Start Date End Date Meme Steel MD [address] [place] [address] 105 [place] [address] PCP - General Pediatrics 06/05/18 04/25/22 No Pcp, Pcp PCP - General 06/08/22 07/19/22 Guadalupe Mcbride MD PCP - General Family Medicine 07/20/22 11/01/23 Sena Dominguez PA [address] [place] [address] [place] [address] PCP - BRADY Physician Government Program Manager 11/02/23 Levy Barry MD [address] [place] [address] [place] [address] PCP - General Family Medicine 12/20/23 documented as of this encounter
--- OUTSIDE RECORDS SUMMARY | 2025-09-18 11:36 | XMS_ITS | Encounter Summary ---
Author Organization [facility] work ([facility]) Address [address] [place] [address] Care Team Providers Care Radiation Protection Engineer Name Role Phone Meme Steel MD Primary Care Provider [phone] Pcp, Pcp Primary Care Provider Guadalupe Sosa MD Primary Care Provider [phone] Sena Dominguez Unavailable [phone] Levy Barry MD Primary Care Provider [phone] Source Comments The information that you have received may contain highly confidential and/or federally protected health information. This information has been disclosed to you from records protected by [facility]. The law prohibits you from making any [...] contact the sender immediately.[facility] ([facility]) Encounter Details Date Type Department Care Team (Late st Contact Info) Description 2004 Historical Note [facility] [employer] System Devyn Vásquez MD [address] [place] [address] [phone] Social History Tobacco Use Types Packs/Day Years Used Date Smoking Tobacco: Never Assessed Comments Unknown Sex and Gender Information Value Date Recorded Sex Assigned at Not on file Legal Sex Female 1:04 AM EDT Gender Identity Not on file Sexual Orientation Not on file documented as of this encounter Plan of Treatment Upcoming Encounters Date Type Department Care Team ([facility] st Contact Info) Description 10/10/2025 10:00 AM EST Office Visit LEATHA CARRILLO - [facility] at [facility] [address] [facility] [address] [place] [phone] Brenda Clay MD [address] [facility] [address] [place] [phone] 04/15/2026 10:00 AM EDT Office Visit [facility]HA [facility] at [facility] [address] [facility] [address] [place] [phone] Sena Dominguez PA [address] [facility] [place] [address] documented as of this encounter Visit Diagnoses Not on filedocumented in this encounter Care Teams Radiation Protection Engineer Relationship Specialty Start Date End Date Meme Steel MD [address] [place] [address] 105 [place] [address] PCP - General Pediatrics 06/05/18 04/25/22 No Pcp, Pcp PCP - General 06/08/22 07/19/22 Guadalupe Mcbride MD PCP - General Family Medicine 07/20/22 11/01/23 Sena Dominguez PA [address] [place] [address] [place] [address] PCP - BRADY Physician Billing Checker 11/02/23 Levy Barry MD [address] [place] [address] [place] [address] PCP - General Family Medicine 12/20/23 documented as of this encounter
--- OUTSIDE RECORDS SUMMARY | 2025-09-18 11:36 | XMS_ITS | Encounter Summary ---
Author Organization [facility] work ([facility]) Address [address] [place] [address] Care Team Providers Care Consumer Insight Manager Name Role Phone Meme Steel MD Primary Care Provider [phone] Pcp, Pcp Primary Care Provider Guadalupe Sosa MD Primary Care Provider [phone] Sena Dominguez Unavailable [phone] Levy Barry MD Primary Care Provider [phone] Source Comments The information that you have received may contain highly confidential and/or federally protected health information. This information has been disclosed to you from records protected by [facility]. The law prohibits you from making any [...] sender immediately.[facility] ([facility]) Encounter Details Date Type Department Care Team (Late st Contact Info) Description 2004 Historical Note [facility] [employer] System Devyn Vásquez MD [address] [place] [address] [phone] Social History Tobacco Use Types Packs/Day Years [...] Visit LEATHA CARRILLO - [facility] [address] [facility] [address] [place] [phone] Brenda Clay MD [address] [facility] [address] [place] [phone] 04/15/2026 10:00 AM EDT Office Visit [facility] [address] [facility] 105 [place] [phone] Sena Dominguez PA [address] [facility] [place] [address] documented as of this encounter Visit Diagnoses Not on filedocumented in this encounter Care Teams Consumer Insight Manager Relationship Specialty Start Date End Date Meme Steel MD [address] [place] [address] 105 [place] [address] PCP - General Pediatrics 06/05/18 04/25/22 No Pcp, Pcp PCP - General 06/08/22 07/19/22 Guadalupe Mcbride MD PCP - General Family Medicine 07/20/22 11/01/23 Sena Dominguez PA [address] [place] [address] [place] [address] PCP - BRADY Physician Car Checker 11/02/23 Levy Barry MD [address] [place] [address] [place] [address] PCP - General Family Medicine 12/20/23 documented as of this encounter
--- OUTSIDE RECORDS SUMMARY | 2025-09-18 11:36 | XMS_ITS | Encounter Summary ---
Author Organization [facility] work ([facility]) Address [address] [place] [address] Care Team Providers Care Tactical Air Defense Controller Name Role Phone Meme Steel MD Primary Care Provider [phone] Pcp, Pcp Primary Care Provider Guadalupe Sosa MD Primary Care Provider [phone] Sena Dominguez Unavailable [phone] Levy Barry MD Primary Care Provider [phone] Source Comments The information that you have received may contain highly confidential and/or federally protected health information. This information has been disclosed to you from records protected by [facility]. The law prohibits you from making any [...] please contact the sender immediately.[facility] ([facility]) Encounter Details Date Type Department Care Team (Late st Contact Info) Description 11/16/2006 Historical Note [facility] PopUp Le[employer] System Devyn Vásquez MD [address] [place] [address] [phone] Social History Tobacco Use Types Packs/Day Years Used Date Smoking Tobacco: Never Assessed Comments Unknown Sex and Gender Information Value Date Recorded Sex Assigned at Not on file Legal Sex Female 1:04 AM EDT Gender Identity Not on file Sexual Orientation Not on file documented as of this encounter Plan of Treatment Upcoming Encounters Date Type Department Care Team ([facility] st Contact Info) Description 10/10/2025 10:00 AM EST Office Visit LEATHA CARRILLO - [facility] 2315 [facility] [address] [place] [phone] Brenda Clay MD [address] [facility] [address] [place] [phone] 04/15/2026 10:00 AM EDT Office Visit [facility] at [facility] + [facility] [address] [facility] 105 [place] [phone] Sena Dominguez PA 4247 [facility] [place] [address] documented as of this encounter Visit Diagnoses Not on filedocumented in this encounter Care Teams Tactical Air Defense Controller Relationship Specialty Start Date End Date Meme Steel MD [address] [place] [address] 105 [place] [address] PCP - General Pediatrics 06/05/18 04/25/22 No Pcp, Pcp PCP - General 06/08/22 07/19/22 Guadalupe Mcbride MD PCP - General Family Medicine 07/20/22 11/01/23 Sena Dominguez PA [address] [place] [address] [place] [address] PCP - BRADY Physician Folding Rules Printing Machine Operator 11/02/23 Levy Barry MD [address] [place] [address] [place] [address] PCP - General Family Medicine 12/20/23 documented as of this encounter
--- OUTSIDE RECORDS SUMMARY | 2025-09-18 11:36 | XMS_ITS | Encounter Summary ---
Author Organization [facility] work ([facility]) Address [address] [place] [address] Care Team Providers Care Oracle Distribution Consultant Name Role Phone Meme Steel MD Primary Care Provider [phone] Pcp, Pcp Primary Care Provider Guadalupe Sosa MD Primary Care Provider [phone] Sena Dominguez Unavailable [phone] Levy Barry MD Primary Care Provider [phone] Source Comments The information that you have received may contain highly confidential and/or federally protected health information. This information has been disclosed to you from records protected by [facility]. The law prohibits you from making any [...] please contact the sender immediately.[facility] ([facility]) Encounter Details Date Type Department Care Team (Late st Contact Info) Description 2004 Historical Note [facility] Dialogic System Devyn Vásquez MD [address] [place] [address] [phone] Social History Tobacco Use Types Packs/Day Years Used Date Smoking Tobacco: Never Assessed Comments Unknown Sex and Gender Information Value Date Recorded Sex Assigned at Not on file Legal Sex Female 1:04 AM EDT Gender Identity Not on file Sexual Orientation Not on file documented as of this encounter Plan of Treatment Upcoming Encounters Date Type Department Care Team ([facility] st Contact Info) Description 10/10/2025 10:00 AM EST Office Visit LEATHA CARRILLO - [facility] [address] [facility] [address] [place] [phone] Brenda Clay MD 2315 [facility] [address] [place] [phone] 04/15/2026 10:00 AM EDT Office Visit [facility] at [facility] + [facility] 4[address] [facility] 105 [place] [phone] Sena Dominguez PA 4247 [facility] [place] [address] documented as of this encounter Visit Diagnoses Not on filedocumented in this encounter Care Teams Oracle Distribution Consultant Relationship Specialty Start Date End Date Meme Steel MD [address] [place] [address] 105 [place] [address] PCP - General Pediatrics 06/05/18 04/25/22 No Pcp, Pcp PCP - General 06/08/22 07/19/22 Guadalupe Mcbride MD PCP - General Family Medicine 07/20/22 11/01/23 Sena Dominguez PA [address] [place] [address] [place] [address] PCP - BRADY Physician State Attorney 11/02/23 Levy Barry MD [address] [place] [address] [place] [address] PCP - General Family Medicine 12/20/23 documented as of this encounter
--- OUTSIDE RECORDS SUMMARY | 2025-09-18 11:36 | XMS_ITS | Encounter Summary ---
Author Organization [facility] work ([facility]) Address [address] [place] [address] Care Team Providers Care Sorting Grapple Operator Name Role Phone Meme Steel MD Primary Care Provider [phone] Pcp, Pcp Primary Care Provider Guadalupe Sosa MD Primary Care Provider [phone] Sena Dominguez Unavailable [phone] Levy Barry MD Primary Care Provider [phone] Source Comments The information that you have received may contain highly confidential and/or federally protected health information. This information has been disclosed to you from records protected by [facility]. The law prohibits you from making any [...] error, please contact the sender immediately.[facility] ([facility]) Encounter Details Date Type Department Care Team (Late st Contact Info) Description 2004 Historical Note [facility] PostRank System Devyn Vásquez MD [address] [place] [address] [phone] Social History Tobacco Use Types Packs/Day Years [...] CARRILLO - [facility] [address] [facility] [address] [place] [phone] Brenda Clay MD 2315 [facility] [address] [place] [phone] 04/15/2026 10:00 AM EDT Office Visit [facility]HA [facility] at [facility] + [facility] 4[address] [facility] 105 [place] [phone] Sena Dominguez PA [address] [facility] [place] [address] documented as of this encounter Visit Diagnoses Not on filedocumented in this encounter Care Teams Sorting Grapple Operator Relationship Specialty Start Date End Date Meme Steel MD [address] [place] [address] 105 [place] [address] PCP - General Pediatrics 06/05/18 04/25/22 No Pcp, Pcp PCP - General 06/08/22 07/19/22 Guadalupe Mcbride MD PCP - General Family Medicine 07/20/22 11/01/23 Sena Dominguez PA [address] [place] [address] [place] [address] PCP - BRADY Physician Fabrics And Material Cutter 11/02/23 Levy Barry MD [address] [place] [address] [place] [address] PCP - General Family Medicine 12/20/23 documented as of this encounter
--- OUTSIDE RECORDS SUMMARY | 2025-09-18 11:36 | XMS_ITS | Encounter Summary ---
Author Organization [facility] work ([facility]) Address [address] [place] [address] Care Team Providers Care Mine Production Engineer Name Role Phone Meme Steel MD Primary Care Provider [phone] Pcp, Pcp Primary Care Provider Guadalupe Sosa MD Primary Care Provider [phone] Sena Dominguez Unavailable [phone] Levy Barry MD Primary Care Provider [phone] Source Comments The information that you have received may contain highly confidential and/or federally protected health information. This information has been disclosed to you from records protected by [facility]. The law prohibits you from making [...] please contact the sender immediately.[facility] ([facility]) Encounter Details Date Type Department Care Team (Late st Contact Info) Description 2004 Historical Note [facility] Apperian System Devyn Vásquez MD [address] [place] [address] [phone] Social History Tobacco Use Types Packs/Day Years Used Date Smoking Tobacco: Never Assessed Comments Unknown Sex and Gender Information Value Date Recorded Sex Assigned at Not on file Legal Sex Female 1:04 AM EDT Gender Identity Not on file Sexual Orientation Not on file documented as of this encounter Plan of Treatment Upcoming Encounters Date Type Department Care Team ([facility] st Contact Info) Description 10/10/2025 10:00 AM EST Office Visit LEATHA CARRILLO - [facility] 2315 [facility] [address] [place] [phone] Brenda Clay MD 2315 [facility] [address] [place] [phone] 04/15/2026 10:00 AM EDT Office Visit [facility]HA [facility] at [facility] + [facility] [address] [facility] 105 [place] [phone] Sena Dominguez PA 4247 [facility] [place] [address] documented as of this encounter Visit Diagnoses Not on filedocumented in this encounter Care Teams Mine Production Engineer Relationship Specialty Start Date End Date Meme Steel MD [address] [place] [address] 105 [place] [address] PCP - General Pediatrics 06/05/18 04/25/22 No Pcp, Pcp PCP - General 06/08/22 07/19/22 Guadalupe Mcbride MD PCP - General Family Medicine 07/20/22 11/01/23 Sena Dominguez PA [address] [place] [address] [place] [address] PCP - BRADY Physician Sheetrock Applicator 11/02/23 Levy Barry MD [address] [place] [address] [place] [address] PCP - General Family Medicine 12/20/23 documented as of this encounter
--- OUTSIDE RECORDS SUMMARY | 2025-09-18 11:36 | XMS_ITS | Encounter Summary ---
Author Organization [facility] work ([facility]) Address [address] [place] [address] Care Team Providers Care Operating Room Scheduler Name Role Phone Meme Steel MD Primary Care Provider [phone] Pcp, Pcp Primary Care Provider Guadalupe Sosa MD Primary Care Provider [phone] Sena Dominguez Unavailable [phone] Levy Barry MD Primary Care Provider [phone] Source Comments The information that you have received may contain highly confidential and/or federally protected health information. This information has been disclosed to you from records protected by [facility]. The law prohibits you from making any [...] contact the sender immediately.[facility] ([facility]) Encounter Details Date Type Department Care Team (Late st Contact Info) Description 2004 Historical Note [facility] DataRobot System Devyn Vásquez MD [address] [place] [address] [phone] Social History Tobacco Use Types Packs/Day Years Used Date Smoking Tobacco: Never Assessed Comments Unknown Sex and Gender Information Value Date Recorded Sex Assigned at Not on file Legal Sex Female 1:04 AM EDT Gender Identity Not on file Sexual Orientation Not on file documented as of this encounter Plan of Treatment Upcoming Encounters Date Type Department Care Team ([facility] st Contact Info) Description 10/10/2025 10:00 AM EST Office Visit LEATHA CARRILLO - [facility] [address] [facility] [address] [place] [phone] Brenda Clay MD 2315 [facility] [address] [place] [phone] 04/15/2026 10:00 AM EDT Office Visit LE[facility]HA [facility] at [facility] + [facility] [address] [facility] 105 [place] [phone] Sena Dominguez PA 4[address] [facility] [place] [address] documented as of this encounter Visit Diagnoses Not on filedocumented in this encounter Care Teams Operating Room Scheduler Relationship Specialty Start Date End Date Meme Steel MD [address] [place] [address] 105 [place] [address] PCP - General Pediatrics 06/05/18 04/25/22 No Pcp, Pcp PCP - General 06/08/22 07/19/22 Guadalupe Mcbride MD PCP - General Family Medicine 07/20/22 11/01/23 Sena Dominguez PA [address] [place] [address] [place] [address] PCP - BRADY Physician Natural Science Curator 11/02/23 Levy Barry MD [address] [place] [address] [place] [address] PCP - General Family Medicine 12/20/23 documented as of this encounter
--- OUTSIDE RECORDS SUMMARY | 2025-09-18 11:36 | XMS_ITS | Encounter Summary ---
Author Organization [facility] work ([facility]) Address [address] [place] [address] Care Team Providers Care Staff Air Tactical Officer Name Role Phone Meme Steel MD Primary Care Provider [phone] Pcp, Pcp Primary Care Provider Guadalupe Sosa MD Primary Care Provider [phone] Sena Dominguez Unavailable [phone] Levy Barry MD Primary Care Provider [phone] Source Comments The information that you have received may contain highly confidential and/or federally protected health information. This information has been disclosed to you from records protected by [facility]. The law prohibits you from making any [...] contact the sender immediately.[facility] ([facility]) Encounter Details Date Type Department Care Team (Late st Contact Info) Description 2004 Historical Note [facility] SaltStack System Devyn Vásquez MD [address] [place] [address] [phone] Social History Tobacco Use Types Packs/Day Years Used Date Smoking Tobacco: Never Assessed Comments Unknown Sex and Gender Information Value Date Recorded Sex Assigned at Not on file Legal Sex Female 1:04 AM EDT Gender Identity Not on file Sexual Orientation Not on file documented as of this encounter Plan of Treatment Upcoming Encounters Date Type Department Care Team ([facility] st Contact Info) Description 10/10/2025 10:00 AM EST Office Visit LEATHA CARRILLO - [facility] at [facility] [address] [facility] [address] [place] [phone] Brenda Clay MD 2315 [employer] [facility] [address] [place] [phone] 04/15/2026 10:00 AM EDT Office Visit [facility]HA [facility] at [facility] + [facility] 4247 [facility] 105 [place] [phone] Sena Dominguez PA 4247 [facility] [place] [address] documented as of this encounter Visit Diagnoses Not on filedocumented in this encounter Care Teams Staff Air Tactical Officer Relationship Specialty Start Date End Date Meme Steel MD [address] [place] [address] 105 [place] [address] PCP - General Pediatrics 06/05/18 04/25/22 No Pcp, Pcp PCP - General 06/08/22 07/19/22 Guadalupe Mcbride MD PCP - General Family Medicine 07/20/22 11/01/23 Sena Dominguez PA [address] [place] [address] [place] [address] PCP - BRADY Physician Sales Solutions Associate 11/02/23 Levy Barry MD [address] [place] [address] [place] [address] PCP - General Family Medicine 12/20/23 documented as of this encounter
--- OUTSIDE RECORDS SUMMARY | 2025-09-18 11:36 | XMS_ITS | Encounter Summary ---
Author Organization [facility] work ([facility]) Address [address] [place] [address] Care Team Providers Care Garage Door Service Technician Name Role Phone Meme Steel MD Primary Care Provider [phone] Pcp, Pcp Primary Care Provider Guadalupe Sosa MD Primary Care Provider [phone] Sena Dominguez Unavailable [phone] Levy Barry MD Primary Care Provider [phone] Source Comments The information that you have received may contain highly confidential and/or federally protected health information. This information has been disclosed to you from records protected by [facility]. The law prohibits you from making any [...] error, please contact the sender immediately.[facility] ([facility]) Encounter Details Date Type Department Care Team (Late st Contact Info) Description 05/29/2006 Historical Note [facility] MedaPhor System Devyn Vásquez MD [address] [place] [address] [phone] Social History Tobacco Use Types Packs/Day Years Used Date Smoking Tobacco: Never Assessed Comments Unknown Sex and Gender Information Value Date Recorded Sex Assigned at Not on file Legal Sex Female 1:04 AM EDT Gender Identity Not on file Sexual Orientation Not on file documented as of this encounter Plan of Treatment Upcoming Encounters Date Type Department Care Team ([facility] st Contact Info) Description 10/10/2025 10:00 AM EST Office Visit LEATHA CARRILLO - [facility] at [facility] [address] [facility] [address] [place] [phone] Brenda Clay MD 2315 [facility] [address] [place] [phone] 04/15/2026 10:00 AM EDT Office Visit LE[facility]HA [facility] at [facility] 4247 [facility] 105 [place] [phone] Sena Dominguez PA 4247 [facility] [place] [address] documented as of this encounter Visit Diagnoses Not on filedocumented in this encounter Care Teams Garage Door Service Technician Relationship Specialty Start Date End Date Meme Steel MD [address] [place] [address] 105 [place] [address] PCP - General Pediatrics 06/05/18 04/25/22 No Pcp, Pcp PCP - General 06/08/22 07/19/22 Guadalupe Mcbride MD PCP - General Family Medicine 07/20/22 11/01/23 Sena Dominguez PA [address] [place] [address] [place] [address] PCP - BRADY Physician Rotary Shear Cutter 11/02/23 Levy Barry MD [address] [place] [address] [place] [address] PCP - General Family Medicine 12/20/23 documented as of this encounter
--- OUTSIDE RECORDS SUMMARY | 2025-09-18 11:36 | XMS_ITS | Encounter Summary ---
Author Organization [facility] work ([facility]) Address [address] [place] [address] Care Team Providers Care Cognos Consultant Name Role Phone Meme Steel MD Primary Care Provider [phone] Pcp, Pcp Primary Care Provider Guadalupe Sosa MD Primary Care Provider [phone] Sena Dominguez Unavailable [phone] Levy Barry MD Primary Care Provider [phone] Source Comments The information that you have received may contain highly confidential and/or federally protected health information. This information has been disclosed to you from records protected by [facility]. The law prohibits you from making [...] please contact the sender immediately.[facility] ([facility]) Encounter Details Date Type Department Care Team (Late st Contact Info) Description 2004 Historical Note [facility] [employer] System Devny Vásquez MD [address] [place] [address] [phone] Social History Tobacco Use Types Packs/Day Years [...] CARRILLO - [facility] [address] [facility] G30 [place] [phone] Brenda Clay MD 2315 [facility] [address] [place] [phone] 04/15/2026 10:00 AM EDT Office Visit [facility]HA [facility] at [facility] + [facility] 4247 [facility] 105 [place] [phone] Sena Dominguez PA 4247 [facility] [place] [address] documented as of this encounter Visit Diagnoses Not on filedocumented in this encounter Care Teams Cognos Consultant Relationship Specialty Start Date End Date Meme Steel MD [address] [place] [address] 105 [place] [address] PCP - General Pediatrics 06/05/18 04/25/22 No Pcp, Pcp PCP - General 06/08/22 07/19/22 Guadalupe Mcbride MD PCP - General Family Medicine 07/20/22 11/01/23 Sena Dominguez PA [address] [place] [address] [place] [address] PCP - BRADY Physician Metal Casting Trades Worker 11/02/23 Levy Barry MD [address] [place] [address] [place] [address] PCP - General Family Medicine 12/20/23 documented as of this encounter
--- OUTSIDE RECORDS SUMMARY | 2025-09-18 11:36 | XMS_ITS | Encounter Summary ---
Author Organization [facility] work ([facility]) Address [address] [place] [address] Care Team Providers Care Informatics Spec Name Role Phone Meme Steel MD Primary Care Provider No Pcp, Pcp Primary Care Provider Guadalupe Sosa MD Primary Care Provider [phone] Sena Dominguez Unavailable [phone] Levy Barry MD Primary Care Provider [phone] Source Comments The information that you have received may contain highly confidential and/or federally protected health information. This information has been disclosed to you from records protected by [facility]. The law prohibits you from making [...] error, please contact the sender immediately.[facility] ([facility]) Encounter Details Date Type Department Care Team (Late st Contact Info) Description 2004 Historical Note [facility] [employer] System Devyn Vásquez MD [address] [place] [address] [phone] Social History Tobacco Use Types Packs/Day Years Used Date Smoking Tobacco: Never Assessed Comments Unknown Sex and Gender Information Value Date Recorded Sex Assigned at Not on file Legal Sex Female 1:04 AM EDT Gender Identity Not on file Sexual Orientation Not on file documented as of this encounter Plan of Treatment Upcoming Encounters Date Type Department Care Team ([facility] st Contact Info) Description 10/10/2025 10:00 AM EST Office Visit LEATHA CARRILLO - [facility] 2315 [facility] G[address] [place] [phone] Brenda Clay MD 2315 [facility] [address] [place] [phone] 04/15/2026 10:00 AM EDT Office Visit LE[facility]HA [facility] at [facility] + [facility] 4247 [facility] 105 [place] [phone] Sena Dominguez PA 4247 [facility] [place] [address] documented as of this encounter Visit Diagnoses Not on filedocumented in this encounter Care Teams Informatics Spec Relationship Specialty Start Date End Date Meme Steel MD [address] [place] [address] 105 [place] [address] PCP - General Pediatrics 06/05/18 04/25/22 No Pcp, Pcp PCP - General 06/08/22 07/19/22 Guadalupe Mcbride MD PCP - General Family Medicine 07/20/22 11/01/23 Sena Dominguez PA [address] [place] [address] [place] [address] PCP - BRADY Physician Electrical Construction Project Manager 11/02/23 Levy Barry MD [address] [place] [address] [place] [address] PCP - General Family Medicine 12/20/23 documented as of this encounter
--- OUTSIDE RECORDS SUMMARY | 2025-09-18 11:36 | XMS_ITS | Encounter Summary ---
Author Organization [facility] work ([facility]) Address [address] [place] [address] Care Team Providers Care Manufacturing Maintenance Technician Name Role Phone Meme Steel MD Primary Care Provider [phone] Pcp, Pcp Primary Care Provider Guadalupe Sosa MD Primary Care Provider [phone] Sena Dominguez Unavailable [phone] Levy Barry MD Primary Care Provider [phone] Source Comments The information that you have received may contain highly confidential and/or federally protected health information. This information has been disclosed to you from records protected by [facility]. The law prohibits you from [...] the sender immediately.[facility] ([facility]) Encounter Details Date Type Department Care Team (Late st Contact Info) Description 2004 Historical Note [facility] [employer] System Devyn Vásquez MD [address] [place] [address] [phone] Social History Tobacco Use Types Packs/Day Years Used Date Smoking Tobacco: Never Assessed Comments Unknown Sex and Gender Information Value Date Recorded Sex Assigned at Not on file Legal Sex Female 1:04 AM EDT Gender Identity Not on file Sexual Orientation Not on file documented as of this encounter Plan of Treatment Upcoming Encounters Date Type Department Care Team ([facility] st Contact Info) Description 10/10/2025 10:00 AM EST Office Visit LEATHA CARRILLO - [facility] [address] [facility] [address] [place] [phone] Brenda Clay MD 2315 [facility] [address] [place] [phone] 04/15/2026 10:00 AM EDT Office Visit [facility] at [facility] + [facility] [address] [facility] [address] [place] [phone] Sena Dominguez PA [address] [facility] [place] [address] documented as of this encounter Visit Diagnoses Not on filedocumented in this encounter Care Teams Manufacturing Maintenance Technician Relationship Specialty Start Date End Date Meme Steel MD [address] [place] [address] 105 [place] [address] PCP - General Pediatrics 06/05/18 04/25/22 No Pcp, Pcp PCP - General 06/08/22 07/19/22 Guadalupe Mcbride MD PCP - General Family Medicine 07/20/22 11/01/23 Sena Dominguez PA [address] [place] [address] [place] [address] PCP - BRADY Physician Photo Printer 11/02/23 Levy Barry MD [address] [place] [address] [place] [address] PCP - General Family Medicine 12/20/23 documented as of this encounter
--- OUTSIDE RECORDS SUMMARY | 2025-09-18 11:36 | XMS_ITS | Encounter Summary ---
Author Organization [facility] work ([facility]) Address [address] [place] [address] Care Team Providers Care Hogshead Packer Name Role Phone Meme Steel MD Primary Care Provider [phone] No Pcp, Pcp Primary Care Provider Guadalupe Sosa MD Primary Care Provider Sena Dominguez Unavailable [phone] Levy Barry MD Primary Care Provider [phone] Source Comments The information that you have received may contain highly confidential and/or federally protected health information. This information has been disclosed to you from records protected by [facility]. The law prohibits you from making [...] contact the sender immediately.[facility] ([facility]) Encounter Details Date Type Department Care Team (Late st Contact Info) Description 05/29/2006 Historical Note [facility] [employer] System Devyn Vásquez MD [address] [place] [address] [id number] Social History Tobacco Use Types Packs/Day Years Used Date Smoking Tobacco: Never Assessed Comments Unknown Sex and Gender Information Value Date Recorded Sex Assigned at Not on file Legal Sex Female 1:04 AM EDT Gender Identity Not on file Sexual Orientation Not on file documented as of this encounter Plan of Treatment Upcoming Encounters Date Type Department Care Team ([facility] st Contact Info) Description 10/10/2025 10:00 AM EST Office Visit LEATHA CARRILLO - [facility] [address] [facility] [address] [place] [phone] Brenda Clay MD 23[address] [facility] [address] [place] [phone] 04/15/2026 10:00 AM EDT Office Visit [facility]HA [facility] at [facility] + [facility] 4247 [facility] [address] [place] [phone] Sena Dominguez PA [address] [facility] [place] [address] documented as of this encounter Visit Diagnoses Not on filedocumented in this encounter Care Teams Hogshead Packer Relationship Specialty Start Date End Date Meme Steel MD [address] [place] [address] 105 [place] [address] PCP - General Pediatrics 06/05/18 04/25/22 No Pcp, Pcp PCP - General 06/08/22 07/19/22 Guadalupe Mcbride MD PCP - General Family Medicine 07/20/22 11/01/23 Sena Dominguez PA [address] [place] [address] [place] [address] PCP - BRADY Physician Research Programmer 11/02/23 Levy Barry MD [address] [place] [address] [place] [address] PCP - General Family Medicine 12/20/23 documented as of this encounter
--- OUTSIDE RECORDS SUMMARY | 2025-09-18 11:36 | XMS_ITS | Encounter Summary ---
Author Organization [facility] work ([facility]) Address [address] [place] [address] Care Team Providers Care Reuse Technician Name Role Phone Meme Steel MD Primary Care Provider [phone] Pcp, Pcp Primary Care Provider Guadalupe Sosa MD Primary Care Provider Sena Dominguez Unavailable [phone] Levy Barry MD Primary Care Provider [phone] Source Comments The information that you have received may contain highly confidential and/or federally protected health information. This information has been disclosed to you from records protected by [facility]. The law prohibits you from [...] contact the sender immediately.[facility] ([facility]) Encounter Details Date Type Department Care Team (Late st Contact Info) Description 2004 Historical Note [facility] [employer] System Devyn Vásquez MD [address] [place] [address] [phone] Social History Tobacco Use Types Packs/Day Years Used Date Smoking Tobacco: Never Assessed Comments Unknown Sex and Gender Information Value Date Recorded Sex Assigned at Not on file Legal Sex Female 1:04 AM EDT Gender Identity Not on file Sexual Orientation Not on file documented as of this encounter Plan of Treatment Upcoming Encounters Date Type Department Care Team ([facility] st Contact Info) Description 10/10/2025 10:00 AM EST Office Visit LEATHA CARRILLO - [facility] [address] [facility] [address] [place] [phone] Brenda Clay MD [address] [facility] [address] [place] [phone] 04/15/2026 10:00 AM EDT Office Visit [facility]HA [facility] at [facility] + [facility] [address] [facility] [address] [place] [phone] Sena Dominguez PA [address] [facility] [place] [address] documented as of this encounter Visit Diagnoses Not on filedocumented in this encounter Care Teams Reuse Technician Relationship Specialty Start Date End Date Meme Steel MD [address] [place] [address] 105 [place] [address] PCP - General Pediatrics 06/05/18 04/25/22 No Pcp, Pcp PCP - General 06/08/22 07/19/22 Guadalupe Mcbride MD PCP - General Family Medicine 07/20/22 11/01/23 Sena Dominguez PA [address] [place] [address] [place] [address] PCP - BRADY Physician Coat Examiner 11/02/23 Levy Barry MD [address] [place] [address] [place] [address] PCP - General Family Medicine 12/20/23 documented as of this encounter
--- OUTSIDE RECORDS SUMMARY | 2025-09-18 11:36 | XMS_ITS | Encounter Summary ---
Author Organization [facility] work ([facility]) Address [address] [place] [address] Care Team Providers Care Ornamental Bronze Worker Name Role Phone Meme Steel MD Primary Care Provider No Pcp, Pcp Primary Care Provider Guadalupe Sosa MD Primary Care Provider [phone] Sena Dominguez Unavailable [phone] Levy Barry MD Primary Care Provider [phone] Source Comments The information that you have received may contain highly confidential and/or federally protected health information. This information has been disclosed to you from records protected by [facility]. The law prohibits you from making [...] please contact the sender immediately.[facility] ([facility]) Encounter Details Date Type Department Care Team (Late st Contact Info) Description 2004 Historical Note [facility] [employer] System Devyn Vásquez MD [address] [place] [address] [phone] Social History Tobacco Use Types Packs/Day Years Used Date Smoking Tobacco: Never Assessed Comments Unknown Sex and Gender Information Value Date Recorded Sex Assigned at Not on file Legal Sex Female 1:04 AM EDT Gender Identity Not on file Sexual Orientation Not on file documented as of this encounter Plan of Treatment Upcoming Encounters Date Type Department Care Team ([facility] st Contact Info) Description 10/10/2025 10:00 AM EST Office Visit LEATHA CARRILLO - [facility] [address] [facility] [address] [place] [phone] Brenda Clay MD 2315 [facility] [address] [place] [phone] 04/15/2026 10:00 AM EDT Office Visit LE[facility]HA [facility] at [facility] + [facility] [address] [facility] 105 [place] [phone] Sena Dominguez PA [address] [facility] [place] [address] documented as of this encounter Visit Diagnoses Not on filedocumented in this encounter Care Teams Ornamental Bronze Worker Relationship Specialty Start Date End Date Meme Steel MD [address] [place] [address] 105 [place] [address] PCP - General Pediatrics 06/05/18 04/25/22 No Pcp, Pcp PCP - General 06/08/22 07/19/22 Guadalupe Mcbride MD PCP - General Family Medicine 07/20/22 11/01/23 Sena Dominguez PA [address] [place] [address] [place] [address] PCP - BRADY Physician Ice Cream Vendor 11/02/23 Levy Barry MD [address] [place] [address] [place] [address] PCP - General Family Medicine 12/20/23 documented as of this encounter
--- OUTSIDE RECORDS SUMMARY | 2025-09-18 11:36 | XMS_ITS | Encounter Summary ---
Author Organization [facility] work ([facility]) Address [address] [place] [address] Care Team Providers Care Foundation Relations Manager Name Role Phone Meme Steel MD Primary Care Provider [phone] Pcp, Pcp Primary Care Provider Guadalupe Sosa MD Primary Care Provider [phone] Sena Dominguez Unavailable [phone] Levy Barry MD Primary Care Provider [phone] Source Comments The information that you have received may contain highly confidential and/or federally protected health information. This information has been disclosed to you from records protected by [facility]. The law prohibits you from making any [...] the sender immediately.[facility] ([facility]) Encounter Details Date Type Department Care Team (Late st Contact Info) Description 2004 Historical Note [facility] [employer] System Devyn Vásquez MD [address] [place] [address] [phone] Social History Tobacco Use Types Packs/Day Years [...] [facility] [address] [facility] [address] [place] [phone] Brenda Clay MD 2315 [facility] [address] [place] [phone] 04/15/2026 10:00 AM EDT Office Visit LEATHA [facility] at [facility] + [facility] 4247 [facility] [address] [place] [phone] Sena Dominguez PA 4[address] [facility] [place] [address] documented as of this encounter Visit Diagnoses Not on filedocumented in this encounter Care Teams Foundation Relations Manager Relationship Specialty Start Date End Date Meme Steel MD [address] [place] [address] 105 [place] [address] PCP - General Pediatrics 06/05/18 04/25/22 No Pcp, Pcp PCP - General 06/08/22 07/19/22 Guadalupe Mcbride MD PCP - General Family Medicine 07/20/22 11/01/23 Sena Dominguez PA [address] [place] [address] [place] [address] PCP - BRADY Physician Senior Systems Software Engineer 11/02/23 Levy Barry MD [address] [place] [address] [place] [address] PCP - General Family Medicine 12/20/23 documented as of this encounter
--- OUTSIDE RECORDS SUMMARY | 2025-09-18 11:36 | XMS_ITS | Encounter Summary ---
Author Organization [facility] work ([facility]) Address [address] [place] [address] Care Team Providers Care Flat Optical Element Maker Name Role Phone Meme Steel MD Primary Care Provider [phone] No Pcp, Pcp Primary Care Provider Guadalupe Sosa MD Primary Care Provider [phone] Sena Dominguez Unavailable [phone] Levy Barry MD Primary Care Provider [phone] Source Comments The information that you have received may contain highly confidential and/or federally protected health information. This information has been disclosed to you from records protected by [facility]. The law prohibits you from making [...] contact the sender immediately.[facility] ([facility]) Encounter Details Date Type Department Care Team (Late st Contact Info) Description 2004 Historical Note [facility] [employer] System Devyn Vásquez MD [address] [place] [address] [phone] Social History Tobacco Use Types Packs/Day Years Used Date Smoking Tobacco: Never Assessed Comments Unknown Sex and Gender Information Value Date Recorded Sex Assigned at Not on file Legal Sex Female 1:04 AM EDT Gender Identity Not on file Sexual Orientation Not on file documented as of this encounter Plan of Treatment Upcoming Encounters Date Type Department Care Team ([facility] st Contact Info) Description 10/10/2025 10:00 AM EST Office Visit LEATHA CARRILLO - [facility] 23[address] [facility] [address] [place] [phone] Brenda Clay MD 2315 [facility] [address] [place] [phone] 04/15/2026 10:00 AM EDT Office Visit LEATHA [facility] at [facility] + [facility] 4[address] [facility] 105 [place] [phone] Sena Dominguez PA [address] [facility] [place] [address] documented as of this encounter Visit Diagnoses Not on filedocumented in this encounter Care Teams Flat Optical Element Maker Relationship Specialty Start Date End Date Meme Steel MD [address] [place] [address] 105 [place] [address] PCP - General Pediatrics 06/05/18 04/25/22 No Pcp, Pcp PCP - General 06/08/22 07/19/22 Guadalupe Mcbride MD PCP - General Family Medicine 07/20/22 11/01/23 Sena Dominguez PA [address] [place] [address] [place] [address] PCP - BRADY Physician Engineering Production Worker 11/02/23 Levy Barry MD [address] [place] [address] [place] [address] PCP - General Family Medicine 12/20/23 documented as of this encounter
--- OUTSIDE RECORDS SUMMARY | 2025-09-18 11:36 | XMS_ITS | Encounter Summary ---
Author Organization [facility] work ([facility]) Address [address] [place] [address] Care Team Providers Care Silver Designer Name Role Phone Meme Steel MD Primary Care Provider [phone] Pcp, Pcp Primary Care Provider Guadalupe Sosa MD Primary Care Provider [phone] Sena Dominguez Unavailable [phone] Levy Barry MD Primary Care Provider [phone] Source Comments The information that you have received may contain highly confidential and/or federally protected health information. This information has been disclosed to you from records protected by [facility]. The law prohibits you from making [...] please contact the sender immediately.[facility] ([facility]) Encounter Details Date Type Department Care Team (Late st Contact Info) Description 2004 Historical Note [facility] [employer] System Devyn Vásquez MD [address] [place] [address] [phone] Social History Tobacco Use Types Packs/Day Years Used Date Smoking Tobacco: Never Assessed Comments Unknown Sex and Gender Information Value Date Recorded Sex Assigned at Not on file Legal Sex Female 1:04 AM EDT Gender Identity Not on file Sexual Orientation Not on file documented as of this encounter Plan of Treatment Upcoming Encounters Date Type Department Care Team ([facility] st Contact Info) Description 10/10/2025 10:00 AM EST Office Visit LEATHA CARRILLO - [facility] 23[address] [facility] [address] [place] [phone] Brenda Clay MD 2315 [facility] [address] [place] [phone] 04/15/2026 10:00 AM EDT Office Visit LEATHA Primary [facility] at [facility] + [facility] 4[address] [facility] 105 [place] [phone] Sena Dominguez PA [address] [facility] [place] [address] documented as of this encounter Visit Diagnoses Not on filedocumented in this encounter Care Teams Silver Designer Relationship Specialty Start Date End Date Meme Steel MD [address] [place] [address] 105 [place] [address] PCP - General Pediatrics 06/05/18 04/25/22 No Pcp, Pcp PCP - General 06/08/22 07/19/22 Guadalupe Mcbride MD PCP - General Family Medicine 07/20/22 11/01/23 Sena Dominguez PA [address] [place] [address] [place] [address] PCP - BRADY Physician Manager Developmental 11/02/23 Levy Barry MD [address] [place] [address] [place] [address] PCP - General Family Medicine 12/20/23 documented as of this encounter
--- OUTSIDE RECORDS SUMMARY | 2025-09-18 11:36 | XMS_ITS | Encounter Summary ---
Author Organization [facility] work ([facility]) Address [address] [place] [address] Care Team Providers Care Mechanical Meter Tester Name Role Phone Meme Steel MD Primary Care Provider [phone] No Pcp, Pcp Primary Care Provider Guadalupe Sosa MD Primary Care Provider [phone] Sena Dominguez Unavailable Levy Barry MD Primary Care Provider [phone] Source Comments The information that you have received may contain highly confidential and/or federally protected health information. This information has been disclosed to you from records protected by [facility]. The law prohibits you from [...] contact the sender immediately.[facility] ([facility]) Encounter Details Date Type Department Care Team (Late st Contact Info) Description 2004 Historical Note [facility] [employer] System Devyn Vásquez MD [address] [place] [address] [phone] Social History Tobacco Use Types Packs/Day Years Used Date Smoking Tobacco: Never Assessed Comments Unknown Sex and Gender Information Value Date Recorded Sex Assigned at Not on file Legal Sex Female 1:04 AM EDT Gender Identity Not on file Sexual Orientation Not on file documented as of this encounter Plan of Treatment Upcoming Encounters Date Type Department Care Team ([facility] st Contact Info) Description 10/10/2025 10:00 AM EST Office Visit LEATHA CARRILLO - [facility] [address] [facility] [address] [place] [phone] Brenda Clay MD 2315 [facility] [address] [place] [phone] 04/15/2026 10:00 AM EDT Office Visit LEATHA [facility] at [facility] + [facility] 4247 [facility] 105 [place] [phone] Sena Dominguez PA 4247 [facility] [place] [address] documented as of this encounter Visit Diagnoses Not on filedocumented in this encounter Care Teams Mechanical Meter Tester Relationship Specialty Start Date End Date Meme Steel MD [address] [place] [address] 105 [place] [address] PCP - General Pediatrics 06/05/18 04/25/22 No Pcp, Pcp PCP - General 06/08/22 07/19/22 Guadalupe Mcbride MD PCP - General Family Medicine 07/20/22 11/01/23 Sena Dominguez PA [address] [place] [address] [place] [address] PCP - BRADY Physician Hot Pipe Gauger 11/02/23 Levy Barry MD [address] [place] [address] [place] [address] PCP - General Family Medicine 12/20/23 documented as of this encounter
--- OUTSIDE RECORDS SUMMARY | 2025-09-18 11:36 | XMS_ITS | Encounter Summary ---
Author Organization [facility] work ([facility]) Address [address] [place] [address] Care Team Providers Care Studio Set Up Worker Name Role Phone Meme Steel MD Primary Care Provider [phone] Pcp, Pcp Primary Care Provider Guadalupe Sosa MD Primary Care Provider [phone] Sena Dominguez Unavailable Levy Barry MD Primary Care Provider [phone] Source Comments The information that you have received may contain highly confidential and/or federally protected health information. This information has been disclosed to you from records protected by [facility]. The law prohibits you from making [...] please contact the sender immediately.[facility] ([facility]) Encounter Details Date Type Department Care Team (Late st Contact Info) Description 2004 Historical Note [facility] [employer] Devyn Vásquez MD [address] [place] [address] [phone] Social History Tobacco Use Types Packs/Day Years Used Date Smoking Tobacco: Never Assessed Comments Unknown Sex and Gender Information Value Date Recorded Sex Assigned at Not on file Legal Sex Female 1:04 AM EDT Gender Identity Not on file Sexual Orientation Not on file documented as of this encounter Plan of Treatment Upcoming Encounters Date Type Department Care Team ([facility] st Contact Info) Description 10/10/2025 10:00 AM EST Office Visit LEATHA CARRILLO - [facility] at [facility] 2315 [facility] [address] [place] [phone] Brenda Clay MD 2315 [facility] [address] [place] [address] 04/15/2026 10:00 AM EDT Office Visit [facility] + [facility] 4247 [facility] 105 [place] [phone] Sena Dominguez PA 4247 [facility] [place] [address] documented as of this encounter Visit Diagnoses Not on filedocumented in this encounter Care Teams Studio Set Up Worker Relationship Specialty Start Date End Date Meme Steel MD [address] [place] [address] 105 [place] [address] PCP - General Pediatrics 06/05/18 04/25/22 No Pcp, Pcp PCP - General 06/08/22 07/19/22 Guadalupe Mcbride MD PCP - General Family Medicine 07/20/22 11/01/23 Sena Dominguez PA [address] [place] [address] [place] [address] PCP - BRADY Physician Distribution Operations Manager 11/02/23 Levy Barry MD [address] [place] [address] [place] [address] PCP - General Family Medicine 12/20/23 documented as of this encounter
--- OUTSIDE RECORDS SUMMARY | 2025-09-18 11:36 | XMS_ITS | Encounter Summary ---
Author Organization [facility] work ([facility]) Address [address] [place] [address] Care Team Providers Care Home Specialist Name Role Phone Meme Steel MD Primary Care Provider [phone] Pcp, Pcp Primary Care Provider Guadalupe Sosa MD Primary Care Provider [phone] Sena Dominguez Unavailable [phone] Levy Barry MD Primary Care Provider [phone] Source Comments The information that you have received may contain highly confidential and/or federally protected health information. This information has been disclosed to you from records protected by [facility]. The law prohibits you from making [...] contact the sender immediately.[facility] ([facility]) Encounter Details Date Type Department Care Team (Late st Contact Info) Description 2004 Historical Note [facility] [employer] Devyn Vásquez MD [address] [place] [address] [phone] Social History Tobacco Use Types Packs/Day Years Used Date Smoking Tobacco: Never Assessed Comments Unknown Sex and Gender Information Value Date Recorded Sex Assigned at Not on file Legal Sex Female 1:04 AM EDT Gender Identity Not on file Sexual Orientation Not on file documented as of this encounter Plan of Treatment Upcoming Encounters Date Type Department Care Team ([facility] st Contact Info) Description 10/10/2025 10:00 AM EST Office Visit LEATHA CARRILLO - [facility] 2315 [facility] [address]30 [place] [phone] Brenda Clay MD 2315 [facility] [address] [place] [address] 04/15/2026 10:00 AM EDT Office Visit [facility] + [facility] 4247 [facility] 105 [place] [phone] Sena Dominguez PA 4247 [facility] [place] [address] documented as of this encounter Visit Diagnoses Not on filedocumented in this encounter Care Teams Home Specialist Relationship Specialty Start Date End Date Meme Steel MD [address] [place] [address] 105 [place] [address] PCP - General Pediatrics 06/05/18 04/25/22 No Pcp, Pcp PCP - General 06/08/22 07/19/22 Guadalupe Mcbride MD PCP - General Family Medicine 07/20/22 11/01/23 Sena Dominguez PA [address] [place] [address] [place] [address] PCP - BRADY Physician Construction Technology Instructor 11/02/23 Levy Barry MD [address] [place] [address] [place] [address] PCP - General Family Medicine 12/20/23 documented as of this encounter
--- OUTSIDE RECORDS SUMMARY | 2025-09-18 11:36 | XMS_ITS | Encounter Summary ---
Author Organization [facility] work ([facility]) Address [address] [place] [address] Care Team Providers Care Plastic Battery Assembler Name Role Phone Meme Steel MD Primary Care Provider [phone] Pcp, Pcp Primary Care Provider Guadalupe Sosa MD Primary Care Provider [phone] Sena Dominguez Unavailable [phone] Levy Barry MD Primary Care Provider [phone] Source Comments The information that you have received may contain highly confidential and/or federally protected health information. This information has been disclosed to you from records protected by [facility]. The law prohibits you from making [...] sender immediately.[facility] ([facility]) Encounter Details Date Type Department Care Team (Late st Contact Info) Description 2004 Historical Note [facility] [employer] Devyn Vásquez MD [address] [place] [address] [phone] Social History Tobacco Use Types Packs/Day Years Used Date Smoking Tobacco: Never Assessed Comments Unknown Sex and Gender Information Value Date Recorded Sex Assigned at Not on file Legal Sex Female 1:04 AM EDT Gender Identity Not on file Sexual Orientation Not on file documented as of this encounter Plan of Treatment Upcoming Encounters Date Type Department Care Team ([facility] st Contact Info) Description 10/10/2025 10:00 AM EST Office Visit LEATHA CARRILLO - [facility] at [facility] 2315 [facility] G30 [place] [phone] Brenda Clay MD 2315 [facility] [address] [place] [phone] 04/15/2026 10:00 AM EDT Office Visit [facility] at [facility] + [facility] 4247 [facility] 105 [place] [phone] Sena Dominguez PA 4247 [facility] [place] [address] documented as of this encounter Visit Diagnoses Not on filedocumented in this encounter Care Teams Plastic Battery Assembler Relationship Specialty Start Date End Date Meme Steel MD [address] [place] [address] 105 [place] [address] PCP - General Pediatrics 06/05/18 04/25/22 No Pcp, Pcp PCP - General 06/08/22 07/19/22 Guadalupe Mcbride MD PCP - General Family Medicine 07/20/22 11/01/23 Sena Dominguez PA [address] [place] [address] [place] [address] PCP - BRADY Physician Metal Smelter 11/02/23 Levy Barry MD [address] [place] [address] [place] [address] PCP - General Family Medicine 12/20/23 documented as of this encounter
--- OUTSIDE RECORDS SUMMARY | 2025-09-18 11:36 | XMS_ITS | Encounter Summary ---
Author Organization [facility] work ([facility]) Address [address] [place] [address] Care Team Providers Care Bale Stacker Name Role Phone Meme Steel MD Primary Care Provider [phone] Pcp, Pcp Primary Care Provider Guadalupe Sosa MD Primary Care Provider [phone] Sena Dominguez Unavailable [phone] Levy Barry MD Primary Care Provider [phone] Source Comments The information that you have received may contain highly confidential and/or federally protected health information. This information has been disclosed to you from records protected by [facility]. The law prohibits you from making any [...] please contact the sender immediately.[facility] ([facility]) Encounter Details Date Type Department Care Team (Late st Contact Info) Description 2004 Historical Note [facility] [employer] Devyn Vásquez MD [address] [place] [address] [phone] Social History Tobacco Use Types Packs/Day Years Used Date Smoking Tobacco: Never Assessed Comments Unknown Sex and Gender Information Value Date Recorded Sex Assigned at Not on file Legal Sex Female 1:04 AM EDT Gender Identity Not on file Sexual Orientation Not on file documented as of this encounter Plan of Treatment Upcoming Encounters Date Type Department Care Team ([facility] st Contact Info) Description 10/10/2025 10:00 AM EST Office Visit LEATHA CARRILLO - [facility] 2315 [facility] [address]30 [place] [phone] Brenda Clay MD 2315 [facility] [address] [place] [phone] 04/15/2026 10:00 AM EDT Office Visit [facility] at [facility] + [facility] 4247 [facility] 105 [place] [phone] Sena Dominguez PA 4247 [facility] [place] [address] documented as of this encounter Visit Diagnoses Not on filedocumented in this encounter Care Teams Bale Stacker Relationship Specialty Start Date End Date Meme Steel MD [address] [place] [address] 105 [place] [address] PCP - General Pediatrics 06/05/18 04/25/22 No Pcp, Pcp PCP - General 06/08/22 07/19/22 Guadalupe Mcbride MD PCP - General Family Medicine 07/20/22 11/01/23 Sena Dominguez PA [address] [place] [address] [place] [address] PCP - BRADY Physician Gaming Associate 11/02/23 Levy Barry MD [address] [place] [address] [place] [address] PCP - General Family Medicine 12/20/23 documented as of this encounter
--- OUTSIDE RECORDS SUMMARY | 2025-09-18 11:36 | XMS_ITS | Encounter Summary ---
Author Organization [facility] work ([facility]) Address [address] [place] [address] Care Team Providers Care Manager Fraud Name Role Phone Meme Steel MD Primary Care Provider [phone] Pcp, Pcp Primary Care Provider Guadalupe Sosa MD Primary Care Provider [phone] Sena Dominguez Unavailable [phone] Levy Barry MD Primary Care Provider [phone] Source Comments The information that you have received may contain highly confidential and/or federally protected health information. This information has been disclosed to you from records protected by [facility]. The law prohibits you from making any [...] contact the sender immediately.[facility] ([facility]) Encounter Details Date Type Department Care Team (Late st Contact Info) Description 05/29/2006 Historical Note [facility] [employer] Devyn Vásquez MD [address] [place] [address] [phone] Social History Tobacco Use Types Packs/Day Years Used Date Smoking Tobacco: Never Assessed Comments Unknown Sex and Gender Information Value Date Recorded Sex Assigned at Not on file Legal Sex Female 1:04 AM EDT Gender Identity Not on file Sexual Orientation Not on file documented as of this encounter Plan of Treatment Upcoming Encounters Date Type Department Care Team ([facility] st Contact Info) Description 10/10/2025 10:00 AM EST Office Visit LEATHA CARRILLO - [facility] 2315 [facility] G30 [place] [phone] Brenda Clay MD 2315 [facility] [address] [place] [phone] 04/15/2026 10:00 AM EDT Office Visit [facility]HA [facility] at [facility] + [facility] [address] [facility] 105 [place] [phone] Sena Dominguez PA [address] [facility] [place] [address] documented as of this encounter Visit Diagnoses Not on filedocumented in this encounter Care Teams Manager Fraud Relationship Specialty Start Date End Date Meme Steel MD [address] [place] [address] 105 [place] [address] PCP - General Pediatrics 06/05/18 04/25/22 No Pcp, Pcp PCP - General 06/08/22 07/19/22 Guadalupe Mcbride MD PCP - General Family Medicine 07/20/22 11/01/23 Sena Dominguez PA [address] [place] [address] [place] [address] PCP - BRADY Physician Sonogram Technician 11/02/23 Levy Barry MD [address] [place] [address] [place] [address] PCP - General Family Medicine 12/20/23 documented as of this encounter
--- OUTSIDE RECORDS SUMMARY | 2025-09-18 11:36 | XMS_ITS | Encounter Summary ---
Author Organization [facility] work ([facility]) Address [address] [place] [address] Care Team Providers Care Composite Boat Builder Name Role Phone Meme Steel MD Primary Care Provider [phone] Pcp, Pcp Primary Care Provider Guadalupe Sosa MD Primary Care Provider [phone] Sena Dominguez Unavailable [phone] Levy Barry MD Primary Care Provider [phone] Source Comments The information that you have received may contain highly confidential and/or federally protected health information. This information has been disclosed to you from records protected by [facility]. The law prohibits you from making [...] please contact the sender immediately.[facility] ([facility]) Encounter Details Date Type Department Care Team (Late st Contact Info) Description 2004 Historical Note [facility] [employer] Devyn Vásquez MD [address] [place] [address] [phone] Social History Tobacco Use Types Packs/Day Years [...] Description 10/10/2025 10:00 AM EST Office Visit LETAHA CARRILLO - [facility] 2315 [facility] G30 [place] [phone] Brenda Clay MD 2315 [facility] [address] [place] [phone] 04/15/2026 10:00 AM EDT Office Visit [facility]HA [facility] at [facility] + [facility] 4247 [facility] 105 [place] [phone] Sena Dominguez PA 4247 [facility] [place] [address] documented as of this encounter Visit Diagnoses Not on filedocumented in this encounter Care Teams Composite Boat Builder Relationship Specialty Start Date End Date Meme Steel MD [address] [place] [address] 105 [place] [address] PCP - General Pediatrics 06/05/18 04/25/22 No Pcp, Pcp PCP - General 06/08/22 07/19/22 Guadalupe Mcbride MD PCP - General Family Medicine 07/20/22 11/01/23 Sena Dominguez PA [address] [place] [address] [place] [address] PCP - BRADY Physician Disability Examiner 11/02/23 Levy Barry MD [address] [place] [address] [place] [address] PCP - General Family Medicine 12/20/23 documented as of this encounter
--- OUTSIDE RECORDS SUMMARY | 2025-09-18 11:36 | XMS_ITS | Encounter Summary ---
Author Organization [facility] work ([facility]) Address [address] [place] [address] Care Team Providers Care Loom Repairer Name Role Phone Meme Steel MD Primary Care Provider [phone] Pcp, Pcp Primary Care Provider Guadalupe Sosa MD Primary Care Provider [phone] Sena Dominguez Unavailable [phone] Levy Barry MD Primary Care Provider [phone] Source Comments The information that you have received may contain highly confidential and/or federally protected health information. This information has been disclosed to you from records protected by [facility]. The law prohibits you from making [...] please contact the sender immediately.[facility] ([facility]) Encounter Details Date Type Department Care Team (Late st Contact Info) Description 11/14/2006 Historical Note [facility] [employer] Devyn Vásquez MD [address] [place] [address] [phone] Social History Tobacco Use Types Packs/Day Years Used Date Smoking Tobacco: Never Assessed Comments Unknown Sex and Gender Information Value Date Recorded Sex Assigned at Not on file Legal Sex Female 1:04 AM EDT Gender Identity Not on file Sexual Orientation Not on file documented as of this encounter Plan of Treatment Upcoming Encounters Date Type Department Care Team ([facility] st Contact Info) Description 10/10/2025 10:00 AM EST Office Visit LEATHA CARRILLO - [facility] 2315 [facility] G30 [place] [phone] Brenda Clay MD 2315 [facility] [address] [place] [phone] 04/15/2026 10:00 AM EDT Office Visit LE[facility]HA [facility] + [facility] 4247 [facility] 105 [place] [phone] Sena Dominguez PA 4247 [facility] [place] [address] documented as of this encounter Visit Diagnoses Not on filedocumented in this encounter Care Teams Loom Repairer Relationship Specialty Start Date End Date Meme Steel MD [address] [place] [address] 105 [place] [address] PCP - General Pediatrics 06/05/18 04/25/22 No Pcp, Pcp PCP - General 06/08/22 07/19/22 Guadalupe Mcbride MD PCP - General Family Medicine 07/20/22 11/01/23 Sena Dominguez PA [address] [place] [address] [place] [address] PCP - BRADY Physician Calibration Technician 11/02/23 Levy Barry MD [address] [place] [address] [place] [address] PCP - General Family Medicine 12/20/23 documented as of this encounter
--- OUTSIDE RECORDS SUMMARY | 2025-09-18 11:36 | XMS_ITS | Encounter Summary ---
Author Organization [facility] work ([facility]) Address [address] [place] [address] Care Team Providers Care Taker Out Name Role Phone Meme Steel MD Primary Care Provider [phone] Pcp, Pcp Primary Care Provider Guadalupe Sosa MD Primary Care Provider [phone] Sena Dominguez Unavailable [phone] Levy Barry MD Primary Care Provider [phone] Source Comments The information that you have received may contain highly confidential and/or federally protected health information. This information has been disclosed to you from records protected by [facility]. The law prohibits you from making any [...] please contact the sender immediately.[facility] ([facility]) Encounter Details Date Type Department Care Team (Late st Contact Info) Description 2004 Historical Note [facility] [employer] Devyn Vásquez MD [address] [place] [address] [phone] Social History Tobacco Use Types Packs/Day Years Used Date Smoking Tobacco: Never Assessed Comments Unknown Sex and Gender Information Value Date Recorded Sex Assigned at Not on file Legal Sex Female 1:04 AM EDT Gender Identity Not on file Sexual Orientation Not on file documented as of this encounter Plan of Treatment Upcoming Encounters Date Type Department Care Team ([facility] st Contact Info) Description 10/10/2025 10:00 AM EST Office Visit LEATHA CARRILLO - [facility] 2315 [facility] G30 [place] [phone] Brenda Clay MD 2315 [facility] [address] [place] [phone] 04/15/2026 10:00 AM EDT Office Visit LE[facility]HA [facility] at [facility] + [facility] 4247 [facility] 105 [place] [phone] Sena Dominguez PA 4247 [facility] [place] [address] documented as of this encounter Visit Diagnoses Not on filedocumented in this encounter Care Teams Taker Out Relationship Specialty Start Date End Date Meme Steel MD [address] [place] [address] 105 [place] [address] PCP - General Pediatrics 06/05/18 04/25/22 No Pcp, Pcp PCP - General 06/08/22 07/19/22 Guadalupe Mcbride MD PCP - General Family Medicine 07/20/22 11/01/23 Sena Dominguez PA [address] [place] [address] [place] [address] PCP - BRADY Physician Consulting Networking Engineer 11/02/23 Levy Barry MD [address] [place] [address] [place] [address] PCP - General Family Medicine 12/20/23 documented as of this encounter
--- OUTSIDE RECORDS SUMMARY | 2025-09-18 11:37 | XMS_ITS | Encounter Summary ---
Author Organization [facility] work ([facility]) Address [address] [place] [address] Care Team Providers Care Pressroom Supervisor Name Role Phone Meme Steel MD Primary Care Provider [phone] Pcp, Pcp Primary Care Provider Guadalupe Sosa MD Primary Care Provider [phone] Sena Dominguez Unavailable [phone] Levy Barry MD Primary Care Provider [phone] Source Comments The information that you have received may contain highly confidential and/or federally protected health information. This information has been disclosed to you from records protected by [facility]. The law prohibits you from making [...] sender immediately.[facility] ([facility]) Encounter Details Date Type Department Care Team (Late st Contact Info) Description 05/22/2012 Historical Note [facility] [employer] Devyn Vásquez MD [address] [place] [address] [phone] Social History Tobacco Use Types Packs/Day Years [...] LEATHA CARRILLO - [facility] 2315 [facility] G30 [place] [phone] Brenda Clay MD 2315 [facility] [address] [place] [phone] 04/15/2026 10:00 AM EDT Office Visit [facility] + [facility] 4247 [facility] 105 [place] [phone] Sena Dominguez PA 4247 [facility] [place] [address] documented as of this encounter Visit Diagnoses Not on filedocumented in this encounter Care Teams Pressroom Supervisor Relationship Specialty Start Date End Date Meme Steel MD [address] [place] [address] 105 [place] [address] PCP - General Pediatrics 06/05/18 04/25/22 No Pcp, Pcp PCP - General 06/08/22 07/19/22 Guadalupe Mcbride MD PCP - General Family Medicine 07/20/22 11/01/23 Sena Dominguez PA [address] [place] [address] [place] [address] PCP - BRADY Physician Human Resources Supervisor 11/02/23 Levy Barry MD [address] [place] [address] [place] [address] PCP - General Family Medicine 12/20/23 documented as of this encounter
--- OUTSIDE RECORDS SUMMARY | 2025-09-18 11:37 | XMS_ITS | Encounter Summary ---
Author Organization [facility] work ([facility]) Address [address] [place] [address] Care Team Providers Care Coverage Specialist Rn Name Role Phone Meme Steel MD Primary Care Provider [phone] Pcp, Pcp Primary Care Provider Guadalupe Sosa MD Primary Care Provider [phone] Sena Dominguez Unavailable [phone] Levy Barry MD Primary Care Provider [phone] Source Comments The information that you have received may contain highly confidential and/or federally protected health information. This information has been disclosed to you from records protected by [facility]. The law prohibits you from making [...] please contact the sender immediately.[facility] ([facility]) Encounter Details Date Type Department Care Team (Late st Contact Info) Description 01/23/2006 Historical Note [facility] Podcast Ready System Devyn Vásquez MD [address] [place] [address] [phone] Social History Tobacco Use Types Packs/Day Years Used Date Smoking Tobacco: Never Assessed Comments Unknown Sex and Gender Information Value Date Recorded Sex Assigned at Not on file Legal Sex Female 1:04 AM EDT Gender Identity Not on file Sexual Orientation Not on file documented as of this encounter Plan of Treatment Upcoming Encounters Date Type Department Care Team ([facility] st Contact Info) Description 10/10/2025 10:00 AM EST Office Visit LEATHA CARRILLO - [facility] 23[address] [facility] [address] [place] [phone] Brenda Clay MD 2315 [facility] [address] [place] [address] 04/15/2026 10:00 AM EDT Office Visit [facility] at [facility] + [facility] [address] [facility] [address] [place] [phone] Sena Dominguez PA 4[address] [facility] [place] [address] documented as of this encounter Visit Diagnoses Not on filedocumented in this encounter Care Teams Coverage Specialist Rn Relationship Specialty Start Date End Date Meme Steel MD [address] [place] [address] 105 [place] [address] PCP - General Pediatrics 06/05/18 04/25/22 No Pcp, Pcp PCP - General 06/08/22 07/19/22 Guadalupe Mcbride MD PCP - General Family Medicine 07/20/22 11/01/23 Sena Dominguez PA [address] [place] [address] [place] [address] PCP - BRADY Physician Bonsai Culturist 11/02/23 Levy Barry MD [address] [place] [address] [place] [address] PCP - General Family Medicine 12/20/23 documented as of this encounter
--- OUTSIDE RECORDS SUMMARY | 2025-09-18 11:37 | XMS_ITS | Encounter Summary ---
Author Organization [facility] work ([facility]) Address [address] [place] [address] Care Team Providers Care Belt Brander Name Role Phone Meme Steel MD Primary Care Provider [phone] No Pcp, Pcp Primary Care Provider Guadalupe Sosa MD Primary Care Provider Sena Dominguez Unavailable [phone] Levy Barry MD Primary Care Provider [phone] Source Comments The information that you have received may contain highly confidential and/or federally protected health information. This information has been disclosed to you from records protected by [facility]. The law prohibits you from [...] contact the sender immediately.[facility] ([facility]) Encounter Details Date Type Department Care Team (Late st Contact Info) Description 03/11/2007 Historical Note [facility] Plan A Drink System Devyn Vásquez MD [address] [place] [address] [phone] Social History Tobacco Use Types Packs/Day Years Used Date Smoking Tobacco: Never Assessed Comments Unknown Sex and Gender Information Value Date Recorded Sex Assigned at Not on file Legal Sex Female 1:04 AM EDT Gender Identity Not on file Sexual Orientation Not on file documented as of this encounter Plan of Treatment Upcoming Encounters Date Type Department Care Team ([facility] st Contact Info) Description 10/10/2025 10:00 AM EST Office Visit LEATHA CARRILLO - [facility] 2315 [facility] [address] [place] [phone] Brenda Clay MD 2315 [facility] [address] [place] [address] 04/15/2026 10:00 AM EDT Office Visit [facility] 4247 [facility] 105 [place] [phone] Sena Dominguez PA 4[address] [facility] [place] [address] documented as of this encounter Visit Diagnoses Not on filedocumented in this encounter Care Teams Belt Brander Relationship Specialty Start Date End Date Meme Steel MD [address] [place] [address] 105 [place] [address] PCP - General Pediatrics 06/05/18 04/25/22 No Pcp, Pcp PCP - General 06/08/22 07/19/22 Guadalupe Mcbride MD PCP - General Family Medicine 07/20/22 11/01/23 eSna Dominguez PA [address] [place] [address] [place] [address] PCP - BRADY Physician Software Test Specialist 11/02/23 Levy Barry MD [address] [place] [address] [place] [address] PCP - General Family Medicine 12/20/23 documented as of this encounter
--- OUTSIDE RECORDS SUMMARY | 2025-09-18 11:37 | XMS_ITS | Encounter Summary ---
Author Organization [facility] work ([facility]) Address [address] [place] [address] Care Team Providers Care Trim Machine Operator Name Role Phone Meme Steel MD Primary Care Provider [phone] Pcp, Pcp Primary Care Provider Guadalupe Sosa MD Primary Care Provider [phone] Sena Dominguez Unavailable [phone] Levy Barry MD Primary Care Provider [phone] Source Comments The information that you have received may contain highly confidential and/or federally protected health information. This information has been disclosed to you from records protected by [facility]. The law prohibits you from making [...] please contact the sender immediately.[facility] ([facility]) Encounter Details Date Type Department Care Team (Late st Contact Info) Description 2004 Historical Note [facility] Fluency System Devyn Vásquez MD [address] [place] [address] [phone] Social History Tobacco Use Types Packs/Day Years Used Date Smoking Tobacco: Never Assessed Comments Unknown Sex and Gender Information Value Date Recorded Sex Assigned at Not on file Legal Sex Female 1:04 AM EDT Gender Identity Not on file Sexual Orientation Not on file documented as of this encounter Plan of Treatment Upcoming Encounters Date Type Department Care Team ([facility] st Contact Info) Description 10/10/2025 10:00 AM EST Office Visit LEATHA CARRILLO - [facility] 2315 [facility] [address] [place] [phone] Brenda Clay MD 2315 [facility] [address] [place] [phone] 04/15/2026 10:00 AM EDT Office Visit LEATHA [facility] at [facility] + [facility] 4247 [facility] 105 [place] [phone] Sena Dominguez PA 4247 [facility] [place] [address] documented as of this encounter Visit Diagnoses Not on filedocumented in this encounter Care Teams Trim Machine Operator Relationship Specialty Start Date End Date Meme Steel MD [address] [place] [address] 105 [place] [address] PCP - General Pediatrics 06/05/18 04/25/22 No Pcp, Pcp PCP - General 06/08/22 07/19/22 Guadalupe Mcbride MD PCP - General Family Medicine 07/20/22 11/01/23 Sena Dominguez PA [address] [place] [address] [place] [address] PCP - BRADY Physician Lineman Service Or Work Dispatcher 11/02/23 Levy Barry MD [address] [place] [address] [place] [address] PCP - General Family Medicine 12/20/23 documented as of this encounter
--- OUTSIDE RECORDS SUMMARY | 2025-09-18 11:37 | XMS_ITS | Encounter Summary ---
Author Organization [facility] work ([facility]) Address [address] [place] [address] Care Team Providers Care Electric Melt Operator Name Role Phone Meme Steel MD Primary Care Provider [phone] Pcp, Pcp Primary Care Provider Guadalupe Sosa MD Primary Care Provider Sena Dominguez Unavailable [phone] Levy Barry MD Primary Care Provider [phone] Source Comments The information that you have received may contain highly confidential and/or federally protected health information. This information has been disclosed to you from records protected by [facility]. The law prohibits you from making [...] Contact Info) Description 06/14/2007 Historical Note [facility] [employer] System Devyn Vásquez MD [address] [place] [address] [phone] Social History Tobacco Use Types Packs/Day Years Used Date Smoking Tobacco: Never Assessed Comments Unknown Sex and Gender Information Value Date Recorded Sex Assigned at Not on file Legal Sex Female 1:04 AM EDT Gender Identity Not on file Sexual Orientation Not on file documented as of this encounter Plan of Treatment Upcoming Encounters Date Type Department Care Team ([facility] st Contact Info) Description 10/10/2025 10:00 AM EST Office Visit LEATHA CARRILLO - [facility] 2315 [facility] [address] [place] [phone] Brenda Clay MD 2315 [facility] [address] [place] [address] 04/15/2026 10:00 AM EDT Office Visit [facility]HA [facility] at [facility] + [facility] [address] [facility] 105 [place] [phone] Sena Dominguez PA 4247 [facility] [place] [address] documented as of this encounter Visit Diagnoses Not on filedocumented in this encounter Care Teams Electric Melt Operator Relationship Specialty Start Date End Date Meme Steel MD [address] [place] [address] 105 [place] [address] PCP - General Pediatrics 06/05/18 04/25/22 No Pcp, Pcp PCP - General 06/08/22 07/19/22 Guadalupe Mcbride MD PCP - General Family Medicine 07/20/22 11/01/23 Sena Dominguez PA [address] [place] [address] [place] [address] PCP - BRADY Physician Prevocational/Rehabilitation Counselor 11/02/23 Levy Barry MD [address] [place] [address] [place] [address] PCP - General Family Medicine 12/20/23 documented as of this encounter
--- OUTSIDE RECORDS SUMMARY | 2025-09-18 11:37 | XMS_ITS | Encounter Summary ---
Author Organization [facility] work ([facility]) Address [address] [place] [address] Care Team Providers Care Industrial Specialist Name Role Phone Meme Steel MD Primary Care Provider [phone] Pcp, Pcp Primary Care Provider Guadalupe Sosa MD Primary Care Provider [phone] Sena Dominguez Unavailable Levy Barry MD Primary Care Provider [phone] Source Comments The information that you have received may contain highly confidential and/or federally protected health information. This information has been disclosed to you from records protected by [facility]. The law prohibits you from [...] contact the sender immediately.[facility] ([facility]) Encounter Details Date Type Department Care Team (Late st Contact Info) Description 06/26/2007 Historical Note [facility] Tid[employer] System Devyn Vásquez MD [address] [place] [address] [phone] Social History Tobacco Use Types Packs/Day Years [...] - [facility] [address] [facility] [address] [place] [phone] Brenda Clay MD 2315 [facility] [address] [place] [phone] 04/15/2026 10:00 AM EDT Office Visit LEATHA [facility] at [facility] + [facility] 4247 [facility] 105 [place] [phone] Sena Dominguez PA 4247 [facility] [place] [address] documented as of this encounter Visit Diagnoses Not on filedocumented in this encounter Care Teams Industrial Specialist Relationship Specialty Start Date End Date Meme Steel MD [address] [place] [address] 105 [place] [address] PCP - General Pediatrics 06/05/18 04/25/22 No Pcp, Pcp PCP - General 06/08/22 07/19/22 Guadalupe Mcbride MD PCP - General Family Medicine 07/20/22 11/01/23 Sena Dominguez PA [address] [place] [address] [place] [address] PCP - BRADY Physician Fitness Sales Consultant 11/02/23 Levy Barry MD [address] [place] [address] [place] [address] PCP - General Family Medicine 12/20/23 documented as of this encounter
--- OUTSIDE RECORDS SUMMARY | 2025-09-18 11:37 | XMS_ITS | Encounter Summary ---
Author Organization [facility] work ([facility]) Address [address] [place] [address] Care Team Providers Care Filament Shaper Name Role Phone Meme Steel MD Primary Care Provider [phone] Pcp, Pcp Primary Care Provider Guadalupe Sosa MD Primary Care Provider [phone] Sena Dominguez Unavailable [phone] Levy Barry MD Primary Care Provider [phone] Source Comments The information that you have [...] error, please contact the sender immediately.[facility] ([facility]) Encounter Details Date Type Department Care Team (Late st Contact Info) Description 03/11/2007 Historical Note [facility] [employer] System Devyn Vásquez MD [address] [place] [address] [phone] Social History Tobacco Use Types Packs/Day Years Used Date Smoking Tobacco: Never Assessed Comments Unknown Sex and Gender Information Value Date Recorded Sex Assigned at Not on file Legal Sex Female 1:04 AM EDT Gender Identity Not on file Sexual Orientation Not on file documented as of this encounter Plan of Treatment Upcoming Encounters Date Type Department Care Team ([facility] st Contact Info) Description 10/10/2025 10:00 AM EST Office Visit LEATAH CARRILLO - [facility] 2315 [facility] [address] [place] [phone] Brenda Clay MD [address] [facility] [address] [place] [address] 04/15/2026 10:00 AM EDT Office Visit LE[facility]HA [facility] at [facility] + [facility] 4247 [facility] 105 [place] [phone] Sena Dominguez PA 4247 [facility] [place] [address] documented as of this encounter Visit Diagnoses Not on filedocumented in this encounter Care Teams Filament Shaper Relationship Specialty Start Date End Date Meme Steel MD [address] [place] [address] 105 [place] [address] PCP - General Pediatrics 06/05/18 04/25/22 No Pcp, Pcp PCP - General 06/08/22 07/19/22 Guadalupe Mcbride MD PCP - General Family Medicine 07/20/22 11/01/23 Sena Dominguez PA [address] [place] [address] [place] [address] PCP - BRADY Physician Business Controller 11/02/23 Levy Barry MD [address] [place] [address] [place] [address] PCP - General Family Medicine 12/20/23 documented as of this encounter
--- OUTSIDE RECORDS SUMMARY | 2025-09-18 11:37 | XMS_ITS | Encounter Summary ---
Author Organization [facility] work ([facility]) Address [address] [place] [address] Care Team Providers Care Combination Welder Name Role Phone Meme Steel MD Primary Care Provider [phone] Pcp, Pcp Primary Care Provider Guadalupe Sosa MD Primary Care Provider [phone] Sena Dominguez Unavailable [phone] Levy Barry MD Primary Care Provider [phone] Source Comments The information that you have [...] please contact the sender immediately.[facility] ([facility]) Encounter Details Date Type Department Care Team (Late st Contact Info) Description 01/13/2006 Historical Note [facility] Jot[employer] System Devyn Vásquez MD [address] [place] [address] [phone] Social History Tobacco Use Types Packs/Day Years Used Date Smoking Tobacco: Never Assessed Comments Unknown Sex and Gender Information Value Date Recorded Sex Assigned at Not on file Legal Sex Female 1:04 AM EDT Gender Identity Not on file Sexual Orientation Not on file documented as of this encounter Plan of Treatment Upcoming Encounters Date Type Department Care Team ([facility] st Contact Info) Description 10/10/2025 10:00 AM EST Office Visit LEATHA CARRILLO - [facility] 2315 [facility] [address] [place] [phone] Brenda Clay MD 2315 [facility] [address] [place] [phone] 04/15/2026 10:00 AM EDT Office Visit LEATHA Primary [facility] at [facility] + [facility] 4247 [facility] 105 [place] [phone] Sena Dominguez PA 4247 [facility] [place] [address] documented as of this encounter Visit Diagnoses Not on filedocumented in this encounter Care Teams Combination Welder Relationship Specialty Start Date End Date Meme Steel MD [address] [place] [address] 105 [place] [address] PCP - General Pediatrics 06/05/18 04/25/22 No Pcp, Pcp PCP - General 06/08/22 07/19/22 Guadalupe Mcbride MD PCP - General Family Medicine 07/20/22 11/01/23 Sena Dominguez PA [address] [place] [address] [place] [address] PCP - BRADY Physician Atm Technician 11/02/23 Levy Barry MD [address] [place] [address] [place] [address] PCP - General Family Medicine 12/20/23 documented as of this encounter
--- OUTSIDE RECORDS SUMMARY | 2025-09-18 11:37 | XMS_ITS | Encounter Summary ---
Author Organization [facility] work ([facility]) Address [address] [place] [address] Care Team Providers Care Alternative Education Teacher Name Role Phone Meme Steel MD Primary Care Provider [phone] Pcp, Pcp Primary Care Provider Guadalupe Sosa MD Primary Care Provider [phone] Sena Dominguez Unavailable [phone] Levy Barry MD Primary Care Provider [phone] Source Comments The information that you have received may contain highly confidential and/or federally protected health information. This information has been disclosed to you from records protected by [facility]. The law prohibits you from [...] information in error, please contact the sender immediately.[facility] ([facility]) Encounter Details Date Type Department Care Team (Late st Contact Info) Description 2004 Historical Note [facility] C[employer] System Devyn Vásquez MD [address] [place] [address] [phone] Social History Tobacco Use Types Packs/Day Years Used Date Smoking Tobacco: Never Assessed Comments Unknown Sex and Gender Information Value Date Recorded Sex Assigned at Not on file Legal Sex Female 1:04 AM EDT Gender Identity Not on file Sexual Orientation Not on file documented as of this encounter Plan of Treatment Upcoming Encounters Date Type Department Care Team ([facility] st Contact Info) Description 10/10/2025 10:00 AM EST Office Visit LEATHA CARRILLO - [facility] 2315 [facility] [address] [place] [phone] Brenda Clay MD 2315 [facility] [address] [place] [phone] 04/15/2026 10:00 AM EDT Office Visit LEATHA Primary Care at [facility] [place] + [facility] 4247 [facility] 105 [place] [phone] Sena Dominguez PA 4247 [facility] [place] [address] documented as of this encounter Visit Diagnoses Not on filedocumented in this encounter Care Teams Alternative Education Teacher Relationship Specialty Start Date End Date Meme Steel MD [address] [place] [address] 105 [place] [address] PCP - General Pediatrics 06/05/18 04/25/22 No Pcp, Pcp PCP - General 06/08/22 07/19/22 Guadalupe Mcbride MD PCP - General Family Medicine 07/20/22 11/01/23 Sena Dominguez PA [address] [place] [address] [place] [address] PCP - BRADY Physician Senior Staff Consultant 11/02/23 Levy Barry MD [address] [place] [address] [place] [address] PCP - General Family Medicine 12/20/23 documented as of this encounter
--- OUTSIDE RECORDS SUMMARY | 2025-09-18 11:37 | XMS_ITS | Encounter Summary ---
Author Organization [facility] work ([facility]) Address [address] [place] [address] Care Team Providers Care Interventional Radiologist Name Role Phone Meme Steel MD Primary Care Provider [phone] Pcp, Pcp Primary Care Provider Guadalupe Sosa MD Primary Care Provider [phone] Sena Dominguez Unavailable [phone] Levy Barry MD Primary Care Provider [phone] Source Comments The information that you have received may contain highly confidential and/or federally protected health information. This information has been disclosed to you from records protected by [facility]. The law prohibits you from making any [...] please contact the sender immediately.[facility] ([facility]) Encounter Details Date Type Department Care Team (Late st Contact Info) Description 06/14/2007 Historical Note [facility] Jusp System Devyn Vásquez MD [address] [place] [address] [phone] Social History Tobacco Use Types Packs/Day Years Used Date Smoking Tobacco: Never Assessed Comments Unknown Sex and Gender Information Value Date Recorded Sex Assigned at Not on file Legal Sex Female 1:04 AM EDT Gender Identity Not on file Sexual Orientation Not on file documented as of this encounter Plan of Treatment Upcoming Encounters Date Type Department Care Team ([facility] st Contact Info) Description 10/10/2025 10:00 AM EST Office Visit LEATHA CARRILLO - [facility] 2315 [facility] [address] [place] [phone] Brenda Clay MD 2315 [facility] [address] [place] [phone] 04/15/2026 10:00 AM EDT Office Visit LEATHA [facility] at [facility] + [facility] 4247 [facility] 105 [place] [phone] Sena Dominguez PA 4247 [facility] [place] [address] documented as of this encounter Visit Diagnoses Not on filedocumented in this encounter Care Teams Interventional Radiologist Relationship Specialty Start Date End Date Meme Steel MD [address] [place] [address] 105 [place] [address] PCP - General Pediatrics 06/05/18 04/25/22 No Pcp, Pcp PCP - General 06/08/22 07/19/22 Guadalupe Mcbride MD PCP - General Family Medicine 07/20/22 11/01/23 Sena Dominguez PA [address] [place] [address] [place] [address] PCP - BRADY Physician Hand Wood Sander 11/02/23 Levy Barry MD [address] [place] [address] [place] [address] PCP - General Family Medicine 12/20/23 documented as of this encounter
--- OUTSIDE RECORDS SUMMARY | 2025-09-18 11:37 | XMS_ITS | Encounter Summary ---
Author Organization [facility] work ([facility]) Address [address] [place] [address] Care Team Providers Care Divisional Storekeeper Name Role Phone Meme Steel MD Primary Care Provider [phone] Pcp, Pcp Primary Care Provider Guadalupe Sosa MD Primary Care Provider [phone] Sena Dominguez Unavailable [phone] Levy Barry MD Primary Care Provider [phone] Source Comments The information that you have received may contain highly confidential and/or federally protected health information. This information has been disclosed to you from records protected by [facility]. The law prohibits you from [...] please contact the sender immediately.[facility] ([facility]) Encounter Details Date Type Department Care Team (Late st Contact Info) Description 01/26/2006 Historical Note [facility] [employer] System Devyn Vásquez MD [address] [place] [address] [phone] Social History Tobacco Use Types Packs/Day Years Used Date Smoking Tobacco: Never Assessed Comments Unknown Sex and Gender Information Value Date Recorded Sex Assigned at Not on file Legal Sex Female 1:04 AM EDT Gender Identity Not on file Sexual Orientation Not on file documented as of this encounter Plan of Treatment Upcoming Encounters Date Type Department Care Team ([facility] st Contact Info) Description 10/10/2025 10:00 AM EST Office Visit LEATHA CARRILLO - [facility] 23[address] [facility] [address] [place] [phone] Brenda Clay MD 2315 [facility] [address] [place] [phone] 04/15/2026 10:00 AM EDT Office Visit [facility] 4247 [facility] 105 [place] [phone] Sena Dominguez PA 4247 [facility] [place] [address] documented as of this encounter Visit Diagnoses Not on filedocumented in this encounter Care Teams Divisional Storekeeper Relationship Specialty Start Date End Date Meme Steel MD [address] [place] [address] 105 [place] [address] PCP - General Pediatrics 06/05/18 04/25/22 No Pcp, Pcp PCP - General 06/08/22 07/19/22 Guadalupe Mcbride MD PCP - General Family Medicine 07/20/22 11/01/23 Sena Dominguez PA [address] [place] [address] [place] [address] PCP - BRADY Physician Microcomputer Support Specialist 11/02/23 Levy Barry MD [address] [place] [address] [place] [address] PCP - General Family Medicine 12/20/23 documented as of this encounter
--- OUTSIDE RECORDS SUMMARY | 2025-09-18 11:37 | XMS_ITS | Encounter Summary ---
Author Organization [facility] work ([facility]) Address [address] [place] [address] Care Team Providers Care Cashier Supervisor Name Role Phone Meme Steel MD Primary Care Provider [phone] Pcp, Pcp Primary Care Provider Guadaluep Sosa MD Primary Care Provider [phone] Sena Dominguez Unavailable [phone] Levy Barry MD Primary Care Provider [phone] Source Comments The information that you have [...] contact the sender immediately.[facility] ([facility]) Encounter Details Date Type Department Care Team (Late st Contact Info) Description 06/19/2007 Historical Note [facility] [employer] System Devyn Vásquez MD [address] [place] [address] [id number] Social History Tobacco Use Types Packs/Day Years Used Date Smoking Tobacco: Never Assessed Comments Unknown Sex and Gender Information Value Date Recorded Sex Assigned at Not on file Legal Sex Female 1:04 AM EDT Gender Identity Not on file Sexual Orientation Not on file documented as of this encounter Plan of Treatment Upcoming Encounters Date Type Department Care Team ([facility] st Contact Info) Description 10/10/2025 10:00 AM EST Office Visit LEATHA CARRILLO - [facility] 2315 [facility] [address]30 [place] [phone] Brenda Clay MD 2315 [facility] [address] [place] [phone] 04/15/2026 10:00 AM EDT Office Visit [facility] 4247 [facility] 105 [place] [phone] Sena Dominguez PA 4247 [facility] [place] [address] documented as of this encounter Visit Diagnoses Not on filedocumented in this encounter Care Teams Cashier Supervisor Relationship Specialty Start Date End Date Meme Steel MD [address] [place] [address] 105 [place] [address] PCP - General Pediatrics 06/05/18 04/25/22 No Pcp, Pcp PCP - General 06/08/22 07/19/22 Guadalupe Mcbride MD PCP - General Family Medicine 07/20/22 11/01/23 Sena Dominguez PA [address] [place] [address] [place] [address] PCP - BRADY Physician Food Service 11/02/23 Levy Barry MD [address] [place] [address] [place] [address] PCP - General Family Medicine 12/20/23 documented as of this encounter
--- OUTSIDE RECORDS SUMMARY | 2025-09-18 11:37 | XMS_ITS | Encounter Summary ---
Author Organization [facility] work ([facility]) Address [address] [place] [address] Care Team Providers Care Manager Willow Name Role Phone Meme Steel MD Primary Care Provider [phone] Pcp, Pcp Primary Care Provider Guadalupe Sosa MD Primary Care Provider [phone] Sena Dominguez Unavailable [phone] Levy Barry MD Primary Care Provider [phone] Source Comments The information that you have received may contain highly confidential and/or federally protected health information. This information has been disclosed to you from records protected by [facility]. The law prohibits you from [...] immediately.[facility] ([facility]) Encounter Details Date Type Department Care Team (Late st Contact Info) Description 2004 Historical Note [facility] [employer] System Devyn Vásquez MD [address] [place] [address] [phone] Social History Tobacco Use Types Packs/Day Years [...] LEATHA CARRILLO - [facility] 2315 [facility] [address]30 [place] [phone] Brenda Clay MD 2315 [facility] [address] [place] [phone] 04/15/2026 10:00 AM EDT Office Visit [facility] at [facility] + [facility] 4[address] [facility] [address] [place] [phone] Sena Dominguez PA 4247 [facility] [place] [address] documented as of this encounter Visit Diagnoses Not on filedocumented in this encounter Care Teams Manager Willow Relationship Specialty Start Date End Date Meme Steel MD [address] [place] [address] 105 [place] [address] PCP - General Pediatrics 06/05/18 04/25/22 No Pcp, Pcp PCP - General 06/08/22 07/19/22 Guadalupe Mcbride MD PCP - General Family Medicine 07/20/22 11/01/23 Sena Dominguez PA [address] [place] [address] [place] [address] PCP - BRADY Physician Paper Cup Handle Machine Operator 11/02/23 Levy Barry MD [address] [place] [address] [place] [address] PCP - General Family Medicine 12/20/23 documented as of this encounter
--- OUTSIDE RECORDS SUMMARY | 2025-09-18 11:37 | XMS_ITS | Encounter Summary ---
Author Organization [facility] work ([facility]) Address [address] [place] [address] Care Team Providers Care Entry Level Name Role Phone Meme Steel MD Primary Care Provider [phone] Pcp, Pcp Primary Care Provider Guadalupe Sosa MD Primary Care Provider [phone] Sena Dominguez Unavailable [phone] Levy Barry MD Primary Care Provider [phone] Source Comments The information that you have received may contain highly confidential and/or federally protected health information. This information has been disclosed to you from records protected by [facility]. The law prohibits you from making [...] contact the sender immediately.[facility] ([facility]) Encounter Details Date Type Department Care Team (Late st Contact Info) Description 01/26/2006 Historical Note [facility] [employer] System Devyn Vásquez MD [address] [place] [address] [phone] Social History Tobacco Use Types Packs/Day Years Used Date Smoking Tobacco: Never Assessed Comments Unknown Sex and Gender Information Value Date Recorded Sex Assigned at Not on file Legal Sex Female 1:04 AM EDT Gender Identity Not on file Sexual Orientation Not on file documented as of this encounter Plan of Treatment Upcoming Encounters Date Type Department Care Team ([facility] st Contact Info) Description 10/10/2025 10:00 AM EST Office Visit LEATHA CARRILLO - [facility] 2315 [facility] G30 [place] [phone] Brenda Clay MD 2315 [facility] [address] [place] [phone] 04/15/2026 10:00 AM EDT Office Visit [facility]HA [facility] at [facility] + [facility] 4247 [facility] 105 [place] [phone] Sena Dominguez PA 4247 [facility] [place] [address] documented as of this encounter Visit Diagnoses Not on filedocumented in this encounter Care Teams Entry Level Relationship Specialty Start Date End Date Meme Steel MD [address] [place] [address] 105 [place] [address] PCP - General Pediatrics 06/05/18 04/25/22 No Pcp, Pcp PCP - General 06/08/22 07/19/22 Guadalupe Mcbride MD PCP - General Family Medicine 07/20/22 11/01/23 Sena Dominguez PA [address] [place] [address] [place] [address] PCP - BRADY Physician Continuous Drier Operator 11/02/23 Levy Barry MD [address] [place] [address] [place] [address] PCP - General Family Medicine 12/20/23 documented as of this encounter
--- OUTSIDE RECORDS SUMMARY | 2025-09-18 11:37 | XMS_ITS | Encounter Summary ---
Author Organization [facility] work ([facility]) Address [address] [facility] [address] [place] [address] Care Team Providers Care Aircraft Manager Name Role Phone Meme Steel MD Primary Care Provider [phone] Pcp, Pcp Primary Care Provider Guadalupe Sosa MD Primary Care Provider [phone] Sena Dominguez Unavailable [phone] Levy Barry MD Primary Care Provider [phone] Source Comments The information that you have received may contain highly confidential and/or federally protected health information. This information has been disclosed to you from records protected by [facility]. The law prohibits you from making [...] sender immediately.[facility] ([facility]) Encounter Details Date Type Department Care Team (Late st Contact Info) Description 2004 Historical Note [facility] [employer] System Devyn Vásquez MD [address] [place] [address] [phone] Social History Tobacco Use Types Packs/Day Years [...] CARRILLO - [facility] 2315 [facility] [address]30 [place] [phone] Brenda Clay MD 2315 [facility] [address] [place] [phone] 04/15/2026 10:00 AM EDT Office Visit LEATHA [facility] at [facility] + [facility] 4247 [facility] 105 [place] [phone] Sena Dominguez PA 4247 [facility] [place] [address] documented as of this encounter Visit Diagnoses Not on filedocumented in this encounter Care Teams Aircraft Manager Relationship Specialty Start Date End Date Meme Steel MD [address] [place] [address] 105 [place] [address] PCP - General Pediatrics 06/05/18 04/25/22 No Pcp, Pcp PCP - General 06/08/22 07/19/22 Guadalupe Mcbride MD PCP - General Family Medicine 07/20/22 11/01/23 Sena Dominguez PA [address] [place] [address] [place] [address] PCP - BRADY Physician Accounts Executive 11/02/23 Levy Barry MD [address] [place] [address] [place] [address] PCP - General Family Medicine 12/20/23 documented as of this encounter
--- OUTSIDE RECORDS SUMMARY | 2025-09-18 11:37 | XMS_ITS | Encounter Summary ---
Author Organization [facility] work ([facility]) Address [address] [facility] [address] [place] [address] Care Team Providers Care Banner Painter Name Role Phone Meme Steel MD Primary Care Provider [phone] Pcp, Pcp Primary Care Provider Guadalupe Sosa MD Primary Care Provider [phone] Sena Dominguez Unavailable [phone] Levy Barry MD Primary Care Provider [phone] Source Comments The information that you have received may contain highly confidential and/or federally protected health information. This information has been disclosed to you from records protected by [facility]. The law prohibits you from making [...] please contact the sender immediately.[facility] ([facility]) Encounter Details Date Type Department Care Team (Late st Contact Info) Description 2004 Historical Note [facility] [employer] System Devyn Vásquez MD [address] [place] [address] [phone] Social History Tobacco Use Types Packs/Day Years [...] CARRILLO - [facility] 2315 [facility] [address]30 [place] [phone] Brenda Clay MD 2315 [facility] [address] [place] [phone] 04/15/2026 10:00 AM EDT Office Visit LE[facility]HA [facility] + [facility] 4247 [facility] 105 [place] [phone] Sena Dominguez PA 4247 [facility] [place] [address] documented as of this encounter Visit Diagnoses Not on filedocumented in this encounter Care Teams Banner Painter Relationship Specialty Start Date End Date Meme Steel MD [address] [place] [address] 105 [place] [address] PCP - General Pediatrics 06/05/18 04/25/22 No Pcp, Pcp PCP - General 06/08/22 07/19/22 Guadalupe Mcbride MD PCP - General Family Medicine 07/20/22 11/01/23 Sena Dominguez PA [address] [place] [address] [place] [address] PCP - BRADY Physician Health Information Internship 11/02/23 Levy Barry MD [address] [place] [address] [place] [address] PCP - General Family Medicine 12/20/23 documented as of this encounter
--- OUTSIDE RECORDS SUMMARY | 2025-09-18 11:37 | XMS_ITS | Encounter Summary ---
Author Organization [facility] work ([facility]) Address [address] [facility] [address] [facility] [address] [place] [address] Care Team Providers Care Sounding Device Operator Name Role Phone Meme Steel MD Primary Care Provider No Pcp, Pcp Primary Care Provider Guadalupe Sosa MD Primary Care Provider [phone] Sena Dominguez Unavailable Levy Barry MD Primary Care Provider [phone] Source Comments The information that you have received may contain highly confidential and/or federally protected health information. This information has been disclosed to you from records protected by [facility]. The law prohibits you from making [...] please contact the sender immediately.[facility] ([facility]) Encounter Details Date Type Department Care Team (Late st Contact Info) Description 05/08/2012 Historical Note [facility] [employer] System Devyn Vásquez MD [address] [place] [address] [phone] Social History Tobacco Use Types Packs/Day Years Used Date Smoking Tobacco: Never Assessed Comments Unknown Sex and Gender Information Value Date Recorded Sex Assigned at Not on file Legal Sex Female 1:04 AM EDT Gender Identity Not on file Sexual Orientation Not on file documented as of this encounter Plan of Treatment Upcoming Encounters Date Type Department Care Team ([facility] st Contact Info) Description 10/10/2025 10:00 AM EST Office Visit LEATHA CARRILLO - [facility] 2315 [facility] G30 [place] [phone] Brenda Clay MD 2315 [facility] [address] [place] [phone] 04/15/2026 10:00 AM EDT Office Visit [facility]HA [facility] 4247 [facility] 105 [place] [phone] Sena Dominguez PA 4247 [facility] [place] [address] documented as of this encounter Visit Diagnoses Not on filedocumented in this encounter Care Teams Sounding Device Operator Relationship Specialty Start Date End Date Meme Steel MD [address] [place] [address] 105 [place] [address] PCP - General Pediatrics 06/05/18 04/25/22 No Pcp, Pcp PCP - General 06/08/22 07/19/22 Guadalupe Mcbride MD PCP - General Family Medicine 07/20/22 11/01/23 Sena Dominguez PA [address] [place] [address] [place] [address] PCP - BRADY Physician Community Recreation Programmer 11/02/23 Levy Barry MD [address] [place] [address] [place] [address] PCP - General Family Medicine 12/20/23 documented as of this encounter
--- OUTSIDE RECORDS SUMMARY | 2025-09-18 11:37 | XMS_ITS | Encounter Summary ---
Author Organization [facility] work ([facility]) Address [address] [facility] [address] [place] [address] Care Team Providers Care Gameplay Programmer Name Role Phone Meme Steel MD Primary Care Provider No Pcp, Pcp Primary Care Provider Guadalupe Sosa MD Primary Care Provider [phone] Sena Dominguez Unavailable [phone] Levy Barry MD Primary Care Provider [phone] Source Comments The information that you have received may contain highly confidential and/or federally protected health information. This information has been disclosed to you from records protected by [facility]. The law prohibits you from making [...] contact the sender immediately.[facility] ([facility]) Encounter Details Date Type Department Care Team (Late st Contact Info) Description 2004 Historical Note [facility] [employer] System Devyn Vásquez MD [address] [place] [address] [phone] Social History Tobacco Use Types Packs/Day Years Used Date Smoking Tobacco: Never Assessed Comments Unknown Sex and Gender Information Value Date Recorded Sex Assigned at Not on file Legal Sex Female 1:04 AM EDT Gender Identity Not on file Sexual Orientation Not on file documented as of this encounter Plan of Treatment Upcoming Encounters Date Type Department Care Team ([facility] st Contact Info) Description 10/10/2025 10:00 AM EST Office Visit LEATHA CARRILLO - [facility] 2315 [facility] G30 [place] [phone] Brenda Clay MD 2315 [facility] [address] [place] [phone] 04/15/2026 10:00 AM EDT Office Visit LE[facility]HA [facility] at [facility] + [facility] 4247 [facility] 105 [place] [phone] Sena Dominguez PA 4247 [facility] [place] [address] documented as of this encounter Visit Diagnoses Not on filedocumented in this encounter Care Teams Gameplay Programmer Relationship Specialty Start Date End Date Meme Steel MD [address] [place] [address] 105 [place] [address] PCP - General Pediatrics 06/05/18 04/25/22 No Pcp, Pcp PCP - General 06/08/22 07/19/22 Guadalupe Mcbride MD PCP - General Family Medicine 07/20/22 11/01/23 Sena Dominguez PA [address] [place] [address] [place] [address] PCP - BRADY Physician Business Machine Operator 11/02/23 Levy Barry MD [address] [place] [address] [place] [address] PCP - General Family Medicine 12/20/23 documented as of this encounter
--- OUTSIDE RECORDS SUMMARY | 2025-09-18 11:37 | XMS_ITS | Encounter Summary ---
Author Organization [facility] work ([facility]) Address [address] [facility] [place] [address] Care Team Providers Care Personnel Interviewer Name Role Phone Meme Steel MD Primary Care Provider [phone] Pcp, Pcp Primary Care Provider Guadalupe Sosa MD Primary Care Provider Sena Dominguez Unavailable [phone] Levy Barry MD Primary Care Provider [phone] Source Comments The information that you have received may contain highly confidential and/or federally protected health information. This information has been disclosed to you from records protected by [facility]. The law prohibits you from making [...] contact the sender immediately.[facility] ([facility]) Encounter Details Date Type Department Care Team (Late st Contact Info) Description 2004 Historical Note [facility] [employer] System Devyn Vásquez MD [address] [place] [address] [phone] Social History Tobacco Use Types Packs/Day Years Used Date Smoking Tobacco: Never Assessed Comments Unknown Sex and Gender Information Value Date Recorded Sex Assigned at Not on file Legal Sex Female 1:04 AM EDT Gender Identity Not on file Sexual Orientation Not on file documented as of this encounter Plan of Treatment Upcoming Encounters Date Type Department Care Team ([facility] st Contact Info) Description 10/10/2025 10:00 AM EST Office Visit LEATHA CARRILLO - [facility] [address] [facility] [address] [place] [phone] Brenda Clay MD 2315 [facility] [address] [place] [phone] 04/15/2026 10:00 AM EDT Office Visit [facility]HA [facility] 4247 [facility] 105 [place] [phone] Sena Dominguez PA 4247 [facility] [place] [address] documented as of this encounter Visit Diagnoses Not on filedocumented in this encounter Care Teams Personnel Interviewer Relationship Specialty Start Date End Date Meme Steel MD [address] [place] [address] 105 [place] [address] PCP - General Pediatrics 06/05/18 04/25/22 No Pcp, Pcp PCP - General 06/08/22 07/19/22 Guadalupe Mcbride MD PCP - General Family Medicine 07/20/22 11/01/23 Sena Dominguez PA [address] [place] [address] [place] [address] PCP - BRADY Physician Designer Writer 11/02/23 Levy Barry MD [address] [place] [address] [place] [address] PCP - General Family Medicine 12/20/23 documented as of this encounter
--- OUTSIDE RECORDS SUMMARY | 2025-09-18 11:37 | XMS_ITS | Encounter Summary ---
Author Organization [facility] work ([facility]) Address [address] [place] [address] Care Team Providers Care Security Systems Sales Representative Name Role Phone Meme Steel MD Primary Care Provider [phone] Pcp, Pcp Primary Care Provider Guadalupe Sosa MD Primary Care Provider [phone] Sena Dominguez Unavailable [phone] Levy Barry MD Primary Care Provider [phone] Source Comments The information that you have [...] please contact the sender immediately.[facility] ([facility]) Encounter Details Date Type Department Care Team (Late st Contact Info) Description 11/09/2006 Historical Note [facility] [employer] System Devyn Vásquez MD [address] [place] [address] [phone] Social History Tobacco Use Types Packs/Day Years Used Date Smoking Tobacco: Never Assessed Comments Unknown Sex and Gender Information Value Date Recorded Sex Assigned at Not on file Legal Sex Female 1:04 AM EDT Gender Identity Not on file Sexual Orientation Not on file documented as of this encounter Plan of Treatment Upcoming Encounters Date Type Department Care Team ([facility] st Contact Info) Description 10/10/2025 10:00 AM EST Office Visit LEATHA CARRILLO - [facility] [address] [facility] [address] [place] [phone] Brenda Clay MD 2315 [facility] [address] [place] [phone] 04/15/2026 10:00 AM EDT Office Visit [facility] + [facility] 4247 [facility] [address] [place] [phone] Sena Dominguez PA 4247 [facility] [place] [address] documented as of this encounter Visit Diagnoses Not on filedocumented in this encounter Care Teams Security Systems Sales Representative Relationship Specialty Start Date End Date Meme Steel MD [address] [place] [address] 105 [place] [address] PCP - General Pediatrics 06/05/18 04/25/22 No Pcp, Pcp PCP - General 06/08/22 07/19/22 Guadalupe Mcbride MD PCP - General Family Medicine 07/20/22 11/01/23 Sena Dominguez PA [address] [place] [address] [place] [address] PCP - BRADY Physician Hydraulic Jack Adjuster 11/02/23 Levy Barry MD [address] [place] [address] [place] [address] PCP - General Family Medicine 12/20/23 documented as of this encounter
--- OUTSIDE RECORDS SUMMARY | 2025-09-18 11:37 | XMS_ITS | Encounter Summary ---
Author Organization [facility] work ([facility]) Address [address] [place] [address] Care Team Providers Care Refinery Operator Assistant Name Role Phone Meme Steel MD Primary Care Provider [phone] Pcp, Pcp Primary Care Provider Guadalupe Sosa MD Primary Care Provider [phone] Sena Dominguez Unavailable [phone] Levy Barry MD Primary Care Provider [phone] Source Comments The information that you have received may contain highly confidential and/or federally protected health information. This information has been disclosed to you from records protected by [facility]. The law prohibits you from making [...] the sender immediately.[facility] ([facility]) Encounter Details Date Type Department Care Team (Late st Contact Info) Description 01/24/2006 Historical Note [facility] [employer] [facility] Devyn Vásquez MD [address] [place] [address] [phone] Social History Tobacco Use Types Packs/Day Years Used Date Smoking Tobacco: Never Assessed Comments Unknown Sex and Gender Information Value Date Recorded Sex Assigned at Not on file Legal Sex Female 1:04 AM EDT Gender Identity Not on file Sexual Orientation Not on file documented as of this encounter Plan of Treatment Upcoming Encounters Date Type Department Care Team ([facility] st Contact Info) Description 10/10/2025 10:00 AM EST Office Visit LEATHA CARRILLO - [facility] [address] [facility] [address] [place] [phone] Brenda Clay MD 2315 [facility] [address] [place] [phone] 04/15/2026 10:00 AM EDT Office Visit [facility] + [facility] [address] [facility] [address] [place] [phone] Sena Dominguez PA 4[address] [facility] [place] [address] documented as of this encounter Visit Diagnoses Not on filedocumented in this encounter Care Teams Refinery Operator Assistant Relationship Specialty Start Date End Date Meme Steel MD [address] [place] [address] 105 [place] [address] PCP - General Pediatrics 06/05/18 04/25/22 No Pcp, Pcp PCP - General 06/08/22 07/19/22 Guadalupe Mcbride MD PCP - General Family Medicine 07/20/22 11/01/23 Sena Dominguez PA [address] [place] [address] [place] [address] PCP - BRADY Physician Cutting And Creasing Press Operator 11/02/23 Levy Barry MD [address] [place] [address] [place] [address] PCP - General Family Medicine 12/20/23 documented as of this encounter
--- OUTSIDE RECORDS SUMMARY | 2025-09-18 11:37 | XMS_ITS | Encounter Summary ---
Author Organization [facility] work ([facility]) Address [address] [place] [address] Care Team Providers Care Creative Writing Professor Name Role Phone Meme Steel MD Primary Care Provider [phone] Pcp, Pcp Primary Care Provider Guadalupe Sosa MD Primary Care Provider [phone] Sena Dominguez Unavailable [phone] Levy Barry MD Primary Care Provider [phone] Source Comments The information that you have received may contain highly confidential and/or federally protected health information. This information has been disclosed to you from records protected by [facility]. The law prohibits you from making [...] please contact the sender immediately.[facility] ([facility]) Encounter Details Date Type Department Care Team (Late st Contact Info) Description 06/01/2006 Historical Note [facility] [employer] System Devyn Vásquez MD [address] [place] [address] [phone] Social History Tobacco Use Types Packs/Day Years Used Date Smoking Tobacco: Never Assessed Comments Unknown Sex and Gender Information Value Date Recorded Sex Assigned at Not on file Legal Sex Female 1:04 AM EDT Gender Identity Not on file Sexual Orientation Not on file documented as of this encounter Plan of Treatment Upcoming Encounters Date Type Department Care Team ([facility] st Contact Info) Description 10/10/2025 10:00 AM EST Office Visit LEATHA CARRILLO - [facility] at [facility] [address] [facility] [address] [place] [phone] Brenda Clay MD 2315 [facility] [address] [place] [phone] 04/15/2026 10:00 AM EDT Office Visit [facility] + [facility] 4247 [facility] 105 [place] [phone] Sena Dominguez PA 4[address] [facility] [place] [address] documented as of this encounter Visit Diagnoses Not on filedocumented in this encounter Care Teams Creative Writing Professor Relationship Specialty Start Date End Date Meme Steel MD [address] [place] [address] 105 [place] [address] PCP - General Pediatrics 06/05/18 04/25/22 No Pcp, Pcp PCP - General 06/08/22 07/19/22 Guadalupe Mcbride MD PCP - General Family Medicine 07/20/22 11/01/23 Sena Dominguez PA [address] [place] [address] [place] [address] PCP - BRADY Physician Asbestos Removal Worker 11/02/23 Levy Barry MD [address] [place] [address] [place] [address] PCP - General Family Medicine 12/20/23 documented as of this encounter
--- OUTSIDE RECORDS SUMMARY | 2025-09-18 11:37 | XMS_ITS | Encounter Summary ---
Author Organization [facility] work ([facility]) Address [address] [place] [address] Care Team Providers Care Dental Treatment Coordinator Name Role Phone Meme Steel MD Primary Care Provider [phone] Pcp, Pcp Primary Care Provider Guadalupe Sosa MD Primary Care Provider [phone] Sena Dominguez Unavailable [phone] Levy Barry MD Primary Care Provider [phone] Source Comments The information that you have received may contain highly confidential and/or federally protected health information. This information has been disclosed to you from records protected by [facility]. The law prohibits you from making [...] please contact the sender immediately.[facility] ([facility]) Encounter Details Date Type Department Care Team (Late st Contact Info) Description 2004 Historical Note [facility] [employer] System Devyn Vásquez MD [address] [place] [address] [phone] Social History Tobacco Use Types Packs/Day Years Used Date Smoking Tobacco: Never Assessed Comments Unknown Sex and Gender Information Value Date Recorded Sex Assigned at Not on file Legal Sex Female 1:04 AM EDT Gender Identity Not on file Sexual Orientation Not on file documented as of this encounter Plan of Treatment Upcoming Encounters Date Type Department Care Team ([facility] st Contact Info) Description 10/10/2025 10:00 AM EST Office Visit LEATHA CARRILLO - [facility] 2315 [facility] [address]30 [place] [phone] Brenda Clay MD 2315 [facility] [address] [place] [phone] 04/15/2026 10:00 AM EDT Office Visit [facility]HA [facility] at [facility] + [facility] 4[address] [facility] 105 [place] [phone] Sena Dominguez PA 4247 [facility] [place] [address] documented as of this encounter Visit Diagnoses Not on filedocumented in this encounter Care Teams Dental Treatment Coordinator Relationship Specialty Start Date End Date Meme Steel MD [address] [place] [address] 105 [place] [address] PCP - General Pediatrics 06/05/18 04/25/22 No Pcp, Pcp PCP - General 06/08/22 07/19/22 Guadalupe Mcbride MD PCP - General Family Medicine 07/20/22 11/01/23 Sena Dominguez PA [address] [place] [address] [place] [address] PCP - BRADY Physician School Community Relations Coordinator 11/02/23 Levy Barry MD [address] [place] [address] [place] [address] PCP - General Family Medicine 12/20/23 documented as of this encounter
--- OUTSIDE RECORDS SUMMARY | 2025-09-18 11:37 | XMS_ITS | Encounter Summary ---
Author Organization [facility] work ([facility]) Address [address] [place] [address] Care Team Providers Care Sugar Laboratory Assistant Name Role Phone Meme Steel MD Primary Care Provider No Pcp, Pcp Primary Care Provider Guadalupe Sosa MD Primary Care Provider [phone] Sena Dominguez Unavailable [phone] Levy Barry MD Primary Care Provider [phone] Source Comments The information that you have received may contain highly confidential and/or federally protected health information. This information has been disclosed to you from records protected by [facility]. The law prohibits you from [...] please contact the sender immediately.[facility] ([facility]) Encounter Details Date Type Department Care Team (Late st Contact Info) Description 06/26/2007 Historical Note [facility] [employer] System Devyn Vásquez MD [address] [place] [address] [phone] Social History Tobacco Use Types Packs/Day Years [...] LEATHA CARRILLO - [facility] 23[address] [facility] [address] [place] [phone] Brenda Clay MD 2315 [facility] [address] [place] [phone] 04/15/2026 10:00 AM EDT Office Visit [facility]HA [facility] at [facility] + [facility] 4247 [facility] 105 [place] [phone] Sena Dominguez PA 4247 [facility] [place] [address] documented as of this encounter Visit Diagnoses Not on filedocumented in this encounter Care Teams Sugar Laboratory Assistant Relationship Specialty Start Date End Date Meme Steel MD [address] [place] [address] 105 [place] [address] PCP - General Pediatrics 06/05/18 04/25/22 No Pcp, Pcp PCP - General 06/08/22 07/19/22 Guadalupe Mcbride MD PCP - General Family Medicine 07/20/22 11/01/23 Sena Dominguez PA [address] [place] [address] [place] [address] PCP - BRADY Physician Pond Supervisor 11/02/23 Levy Barry MD [address] [place] [address] [place] [address] PCP - General Family Medicine 12/20/23 documented as of this encounter
--- OUTSIDE RECORDS SUMMARY | 2025-09-18 11:37 | XMS_ITS | Encounter Summary ---
Author Organization [facility] work ([facility]) Address [address] [place] [address] Care Team Providers Care Nuclear Reactor Technician Name Role Phone Meme Steel MD Primary Care Provider [phone] Pcp, Pcp Primary Care Provider Guadalupe Sosa MD Primary Care Provider [phone] Sena Dominguez Unavailable [phone] Levy Barry MD Primary Care Provider [phone] Source Comments The information that you have received may contain highly confidential and/or federally protected health information. This information has been disclosed to you from records protected by [facility]. The law prohibits you from [...] the sender immediately.[facility] ([facility]) Encounter Details Date Type Department Care Team (Late st Contact Info) Description 06/01/2006 Historical Note [facility] [employer] System Devyn Vásquez MD [address] [place] [address] [phone] Social History Tobacco Use Types Packs/Day Years Used Date Smoking Tobacco: Never Assessed Comments Unknown Sex and Gender Information Value Date Recorded Sex Assigned at Not on file Legal Sex Female 1:04 AM EDT Gender Identity Not on file Sexual Orientation Not on file documented as of this encounter Plan of Treatment Upcoming Encounters Date Type Department Care Team ([facility] st Contact Info) Description 10/10/2025 10:00 AM EST Office Visit LEATHA CARRILLO - [facility] [address] [facility] [address] [place] [phone] Brenda Clay MD 2315 [facility] [address] [place] [phone] 04/15/2026 10:00 AM EDT Office Visit [facility] at [facility] + [facility] [address] [facility] 105 [place] [phone] Sena Dominguez PA 4247 [facility] [place] [address] documented as of this encounter Visit Diagnoses Not on filedocumented in this encounter Care Teams Nuclear Reactor Technician Relationship Specialty Start Date End Date Meme Steel MD [address] [place] [address] 105 [place] [address] PCP - General Pediatrics 06/05/18 04/25/22 No Pcp, Pcp PCP - General 06/08/22 07/19/22 Guadalupe Mcbride MD PCP - General Family Medicine 07/20/22 11/01/23 Sena Dominguez PA [address] [place] [address] [place] [address] PCP - BRADY Physician Seafood Fisherman 11/02/23 Levy Barry MD [address] [place] [address] [place] [address] PCP - General Family Medicine 12/20/23 documented as of this encounter
--- OUTSIDE RECORDS SUMMARY | 2025-09-18 11:37 | XMS_ITS | Encounter Summary ---
Author Organization [facility] work ([facility]) Address [address] [place] [address] Care Team Providers Care Microstrategy Reports Developer Name Role Phone Meme Steel MD Primary Care Provider [phone] Pcp, Pcp Primary Care Provider Guadalupe Sosa MD Primary Care Provider [phone] Sena Dominguez Unavailable Levy Barry MD Primary Care Provider [phone] Source Comments The information that you have received may contain highly confidential and/or federally protected health information. This information has been disclosed to you from records protected by [facility]. The law prohibits you from making any [...] error, please contact the sender immediately.[facility] ([facility]) Encounter Details Date Type Department Care Team (Late st Contact Info) Description 11/16/2006 Historical Note [facility] [employer] System Devyn Vásquez MD [address] [place] [address] [phone] Social History Tobacco Use Types Packs/Day Years Used Date Smoking Tobacco: Never Assessed Comments Unknown Sex and Gender Information Value Date Recorded Sex Assigned at Not on file Legal Sex Female 1:04 AM EDT Gender Identity Not on file Sexual Orientation Not on file documented as of this encounter Plan of Treatment Upcoming Encounters Date Type Department Care Team ([facility] st Contact Info) Description 10/10/2025 10:00 AM EST Office Visit LEATHA CARRILLO - [facility] [address] [facility] [address]30 [place] [phone] Brenda Clay MD 2315 [facility] [address] [place] [phone] 04/15/2026 10:00 AM EDT Office Visit [facility]HA [facility] at [facility] + [facility] 4[address] [facility] 105 [place] [phone] Sena Dominguez PA 4247 [facility] [place] [address] documented as of this encounter Visit Diagnoses Not on filedocumented in this encounter Care Teams Microstrategy Reports Developer Relationship Specialty Start Date End Date Meme Steel MD [address] [place] [address] 105 [place] [address] PCP - General Pediatrics 06/05/18 04/25/22 No Pcp, Pcp PCP - General 06/08/22 07/19/22 Guadalupe Mcbride MD PCP - General Family Medicine 07/20/22 11/01/23 Sena Dominguez PA [address] [place] [address] [place] [address] PCP - BRADY Physician Bolt Loader 11/02/23 Levy Barry MD [address] [place] [address] [place] [address] PCP - General Family Medicine 12/20/23 documented as of this encounter
--- OUTSIDE RECORDS SUMMARY | 2025-09-18 11:37 | XMS_ITS | Encounter Summary ---
Author Organization [facility] work ([facility]) Address [address] [place] [address] Care Team Providers Care Um Rn Name Role Phone Meme Steel MD Primary Care Provider [phone] Pcp, Pcp Primary Care Provider Guadalupe Sosa MD Primary Care Provider [phone] Sena Dominguez Unavailable [phone] Levy Barry MD Primary Care Provider [phone] Source Comments The information that you have [...] contact the sender immediately.[facility] ([facility]) Encounter Details Date Type Department Care Team (Late st Contact Info) Description 05/24/2012 Historical Note [facility] [employer] System Devyn Vásquez MD [address] [place] [address] [phone] Social History Tobacco Use Types Packs/Day Years Used Date Smoking Tobacco: Never Assessed Comments Unknown Sex and Gender Information Value Date Recorded Sex Assigned at Not on file Legal Sex Female 1:04 AM EDT Gender Identity Not on file Sexual Orientation Not on file documented as of this encounter Plan of Treatment Upcoming Encounters Date Type Department Care Team ([facility] st Contact Info) Description 10/10/2025 10:00 AM EST Office Visit LEATHA CARRILLO - [facility] 2315 [facility] G30 [place] [phone] Brenda Clay MD 2315 [facility] [address] [place] [phone] 04/15/2026 10:00 AM EDT Office Visit [facility] at [facility] + [facility] 4247 [facility] 105 [place] [phone] Sena Dominguez PA 4247 [facility] [place] [address] documented as of this encounter Visit Diagnoses Not on filedocumented in this encounter Care Teams Um Rn Relationship Specialty Start Date End Date Meme Steel MD [address] [place] [address] 105 [place] [address] PCP - General Pediatrics 06/05/18 04/25/22 No Pcp, Pcp PCP - General 06/08/22 07/19/22 Guadalupe Mcbride MD PCP - General Family Medicine 07/20/22 11/01/23 Sena Dominguez PA [address] [place] [address] [place] [address] PCP - BRADY Physician Mental Hygiene Consultant 11/02/23 Levy Barry MD [address] [place] [address] [place] [address] PCP - General Family Medicine 12/20/23 documented as of this encounter
--- OUTSIDE RECORDS SUMMARY | 2025-09-18 11:37 | XMS_ITS | Encounter Summary ---
Author Organization [facility] work ([facility] Address [address] [place] [address] Care Team Providers Care Ground Hand Name Role Phone Meme Steel MD Primary Care Provider [phone] Pcp, Pcp Primary Care Provider Guadalupe Sosa MD Primary Care Provider [phone] Sena Dominguez Unavailable [phone] Levy Barry MD Primary Care Provider Source Comments The information that you have received may contain highly confidential and/or federally protected health information. This information has been disclosed to you from records protected by [facility]. The law prohibits you from making [...] error, please contact the sender immediately.[facility] ([facility] Encounter Details Date Type Department Care Team (Late st Contact Info) Description 05/24/2012 Historical Note [facility] [employer] [facility] Devyn Vásquez MD [address] [place] [address] [phone] Social History Tobacco Use Types Packs/Day Years Used Date Smoking Tobacco: Never Assessed Comments Unknown Sex and Gender Information Value Date Recorded Sex Assigned at Not on file Legal Sex Female 1:04 AM EDT Gender Identity Not on file Sexual Orientation Not on file documented as of this encounter Plan of Treatment Upcoming Encounters Date Type Department Care Team ([facility] st Contact Info) Description 10/10/2025 10:00 AM EST Office Visit LEATHA CARRILLO - [facility] [address] [facility] G30 [place] [phone] Brenda Clay MD 2315 [facility] [address] [place] [phone] 04/15/2026 10:00 AM EDT Office Visit [facility] + [facility] 4[address] [facility] 105 [place] [phone] Sena Dominguez PA 4247 [facility] [place] [address] documented as of this encounter Visit Diagnoses Not on filedocumented in this encounter Care Teams Ground Hand Relationship Specialty Start Date End Date Meme Steel MD [address] [place] [address] 105 [place] [address] PCP - General Pediatrics 06/05/18 04/25/22 No Pcp, Pcp PCP - General 06/08/22 07/19/22 Guadalupe Mcbride MD PCP - General Family Medicine 07/20/22 11/01/23 Sena Dominguez PA [address] [place] [address] [place] [address] PCP - BRADY Physician Rolled Glass Crosscutter 11/02/23 Levy Barry MD [address] [place] [address] [place] [address] PCP - General Family Medicine 12/20/23 documented as of this encounter
--- OUTSIDE RECORDS SUMMARY | 2025-09-18 11:37 | XMS_ITS | Encounter Summary ---
Author Organization [facility] work ([facility]) Address [address] [place] [address] Care Team Providers Care Weigher And Charger Name Role Phone Meme Steel MD Primary Care Provider [phone] Pcp, Pcp Primary Care Provider Guadalupe Sosa MD Primary Care Provider [phone] Sena Dominguez Unavailable Levy Barry MD Primary Care Provider [phone] Source Comments The information that you have [...] contact the sender immediately.[facility] ([facility]) Encounter Details Date Type Department Care Team (Late st Contact Info) Description 2004 Historical Note [facility] [employer] System Devyn Vásquez MD [address] [place] [address] [phone] Social History Tobacco Use Types Packs/Day Years Used Date Smoking Tobacco: Never Assessed Comments Unknown Sex and Gender Information Value Date Recorded Sex Assigned at Not on file Legal Sex Female 1:04 AM EDT Gender Identity Not on file Sexual Orientation Not on file documented as of this encounter Plan of Treatment Upcoming Encounters Date Type Department Care Team ([facility] st Contact Info) Description 10/10/2025 10:00 AM EST Office Visit LEATHA CARRILLO - [facility] 2315 [facility] [address] [place] [phone] Brenda Clay MD 2315 [facility] [address] [place] [phone] 04/15/2026 10:00 AM EDT Office Visit [facility]HA [facility] at [facility] + [facility] 4247 [facility] [address] [place] [phone] Sena Dominguez PA 4247 [facility] [place] [address] documented as of this encounter Visit Diagnoses Not on filedocumented in this encounter Care Teams Weigher And Charger Relationship Specialty Start Date End Date Meme Steel MD [address] [place] [address] 105 [place] [address] PCP - General Pediatrics 06/05/18 04/25/22 No Pcp, Pcp PCP - General 06/08/22 07/19/22 Guadalupe Mcbride MD PCP - General Family Medicine 07/20/22 11/01/23 Sena Dominguez PA [address] [place] [address] [place] [address] PCP - BRADY Physician Senior Asic Design Engineer 11/02/23 Levy Barry MD [address] [place] [address] [place] [address] PCP - General Family Medicine 12/20/23 documented as of this encounter
--- OUTSIDE RECORDS SUMMARY | 2025-09-18 11:37 | XMS_ITS | Encounter Summary ---
Author Organization [facility] work ([facility]) Address [address] [place] [address] Care Team Providers Care Impression Printer Name Role Phone Meme Steel MD Primary Care Provider No Pcp, Pcp Primary Care Provider Guadalupe Sosa MD Primary Care Provider [phone] Sena Dominguez Unavailable [phone] Levy Barry MD Primary Care Provider [phone] Source Comments The information that you have received may contain highly confidential and/or federally protected health information. This information has been disclosed to you from records protected by [facility]. The law prohibits you from [...] please contact the sender immediately.[facility] ([facility]) Encounter Details Date Type Department Care Team (Late st Contact Info) Description 11/09/2006 Historical Note [facility] [employer] System Devyn Vásquez MD [address] [place] [address] [phone] Social History Tobacco Use Types Packs/Day Years [...] LEATHA CARRILLO - [facility] 2315 [facility] [address] [place] [phone] Brenda Clay MD 2315 [facility] [address] [place] [phone] 04/15/2026 10:00 AM EDT Office Visit LEATHA Primary [facility] at [facility] + [facility] [place] 4247 [facility] [address] [place] [phone] Sena Dominguez PA 4247 [facility] [place] [address] documented as of this encounter Visit Diagnoses Not on filedocumented in this encounter Care Teams Impression Printer Relationship Specialty Start Date End Date Meme Steel MD [address] [place] [address] 105 [place] [address] PCP - General Pediatrics 06/05/18 04/25/22 No Pcp, Pcp PCP - General 06/08/22 07/19/22 Guadalupe Mcbride MD PCP - General Family Medicine 07/20/22 11/01/23 Sena Dominguez PA [address] [place] [address] [place] [address] PCP - BRADY Physician Photo Optics Technician 11/02/23 Levy Barry MD [address] [place] [address] [place] [address] PCP - General Family Medicine 12/20/23 documented as of this encounter
--- OUTSIDE RECORDS SUMMARY | 2025-09-18 11:37 | XMS_ITS | Encounter Summary ---
Author Organization [facility] work ([facility]) Address [address] [place] [address] Care Team Providers Care Cisco Unified Communications Engineer Name Role Phone Meme Steel MD Primary Care Provider [phone] Pcp, Pcp Primary Care Provider Guadalupe Sosa MD Primary Care Provider [phone] Sena Dominguez Unavailable [phone] Levy Barry MD Primary Care Provider [phone] Source Comments The information that you have [...] please contact the sender immediately.[facility] ([facility]) Encounter Details Date Type Department Care Team (Late st Contact Info) Description 05/24/2012 Historical Note [facility] [employer] System Devyn Vásquez MD [address] [place] [address] [phone] Social History Tobacco Use Types Packs/Day Years [...] LEATHA CARRILLO - [facility] 2315 [facility] G30 [place] [phone] Brenda Clay MD 2315 [facility] [address] [place] [phone] 04/15/2026 10:00 AM EDT Office Visit LEATHA Primary [facility] at [facility] + [facility] 4247 [facility] [address] [place] [phone] Sena Dominguez PA [address] [facility] [place] [address] documented as of this encounter Visit Diagnoses Not on filedocumented in this encounter Care Teams Cisco Unified Communications Engineer Relationship Specialty Start Date End Date Meme Steel MD [address] [place] [address] 105 [place] [address] PCP - General Pediatrics 06/05/18 04/25/22 No Pcp, Pcp PCP - General 06/08/22 07/19/22 Guadalupe Mcbride MD PCP - General Family Medicine 07/20/22 11/01/23 Sena Dominguez PA [address] [place] [address] [place] [address] PCP - BRADY Physician Strip Deburrer 11/02/23 Levy Barry MD [address] [place] [address] [place] [address] PCP - General Family Medicine 12/20/23 documented as of this encounter
--- OUTSIDE RECORDS SUMMARY | 2025-09-18 11:37 | XMS_ITS | Encounter Summary ---
Author Organization [facility] work ([facility]) Address [address] [place] [address] Care Team Providers Care Medical Intern Name Role Phone Meme Steel MD Primary Care Provider [phone] Pcp, Pcp Primary Care Provider Guadalupe Sosa MD Primary Care Provider [phone] Sena Dominguez Unavailable [phone] Levy Barry MD Primary Care Provider [phone] Source Comments The information that you have received may contain highly confidential and/or federally protected health information. This information has been disclosed to you from records protected by [facility]. The law prohibits you from making any [...] the sender immediately.[facility] ([facility]) Encounter Details Date Type Department Care Team (Late st Contact Info) Description 2004 Historical Note [facility] [employer] System Devyn Vásquez MD [address] [place] [address] [phone] Social History Tobacco Use Types Packs/Day Years Used Date Smoking Tobacco: Never Assessed Comments Unknown Sex and Gender Information Value Date Recorded Sex Assigned at Not on file Legal Sex Female 1:04 AM EDT Gender Identity Not on file Sexual Orientation Not on file documented as of this encounter Plan of Treatment Upcoming Encounters Date Type Department Care Team ([facility] st Contact Info) Description 10/10/2025 10:00 AM EST Office Visit LEATHA CARRILLO - [facility] 2315 [facility] [address] [place] [phone] Brenda Clay MD 2315 [facility] [address] [place] [phone] 04/15/2026 10:00 AM EDT Office Visit LEATHA Primary Care at [facility] + [facility] 4247 [facility] [address] [place] [phone] Sena Dominguez PA 4247 [facility] [place] [address] documented as of this encounter Visit Diagnoses Not on filedocumented in this encounter Care Teams Medical Intern Relationship Specialty Start Date End Date Meme Steel MD [address] [place] [address] 105 [place] [address] PCP - General Pediatrics 06/05/18 04/25/22 No Pcp, Pcp PCP - General 06/08/22 07/19/22 Guadalupe Mcbride MD PCP - General Family Medicine 07/20/22 11/01/23 Sena Dominguez PA [address] [place] [address] [place] [address] PCP - BRADY Physician Campus Manager 11/02/23 Levy Barry MD [address] [place] [address] [place] [address] PCP - General Family Medicine 12/20/23 documented as of this encounter
--- OUTSIDE RECORDS SUMMARY | 2025-09-18 11:37 | XMS_ITS | Encounter Summary ---
Author Organization [facility] work ([facility]) Address [address] [facility] [address] [facility] [address] [place] [address] Care Team Providers Care Geographic Information Systems Director Name Role Phone Meme Steel MD Primary Care Provider [phone] Pcp, Pcp Primary Care Provider Guadalupe Sosa MD Primary Care Provider [phone] Sena Dominguez Unavailable [phone] Levy Barry MD Primary Care Provider [phone] Source Comments The information that you have [...] Contact Info) Description 06/14/2007 Historical Note [facility] [employer] System Devyn Vásquez MD [address] [place] [address] [phone] Social History Tobacco Use Types Packs/Day Years Used Date Smoking Tobacco: Never Assessed Comments Unknown Sex and Gender Information Value Date Recorded Sex Assigned at Not on file Legal Sex Female 1:04 AM EDT Gender Identity Not on file Sexual Orientation Not on file documented as of this encounter Plan of Treatment Upcoming Encounters Date Type Department Care Team ([facility] st Contact Info) Description 10/10/2025 10:00 AM EST Office Visit LEATHA CARRILLO - [facility] 2315 [facility] [address] [place] [phone] Brenda Clay MD 2315 [facility] [address] [place] [phone] 04/15/2026 10:00 AM EDT Office Visit LE[facility]HA [facility] at [facility] + [facility] 4247 [facility] [address] [place] [phone] Sena Dominguez PA 4247 [facility] [place] [address] documented as of this encounter Visit Diagnoses Not on filedocumented in this encounter Care Teams Geographic Information Systems Director Relationship Specialty Start Date End Date Meme Steel MD [address] [place] [address] 105 [place] [address] PCP - General Pediatrics 06/05/18 04/25/22 No Pcp, Pcp PCP - General 06/08/22 07/19/22 Guadalupe Mcbride MD PCP - General Family Medicine 07/20/22 11/01/23 Sena Dominguez PA [address] [place] [address] [place] [address] PCP - BRADY Physician Press Set Up Person 11/02/23 Levy Barry MD [address] [place] [address] [place] [address] PCP - General Family Medicine 12/20/23 documented as of this encounter
--- OUTSIDE RECORDS SUMMARY | 2025-09-18 11:37 | XMS_ITS | Encounter Summary ---
Author Organization [facility] work ([facility]) Address [address] [facility] [address] [place] [address] Care Team Providers Care Traffic And Transport Planner Name Role Phone Meme Steel MD Primary Care Provider [phone] Pcp, Pcp Primary Care Provider Guadalupe Sosa MD Primary Care Provider [phone] Sena Dominguez Unavailable [phone] Levy Barry MD Primary Care Provider Source Comments The information that you have received may contain highly confidential and/or federally protected health information. This information has been disclosed to you from records protected by [facility]. The law prohibits you from making [...] sender immediately.[facility] ([facility]) Encounter Details Date Type Department Care Team (Late st Contact Info) Description 01/24/2006 Historical Note [facility] [employer] System Devyn Vásquez MD [address] [place] [address] [phone] Social History Tobacco Use Types Packs/Day Years Used Date Smoking Tobacco: Never Assessed Comments Unknown Sex and Gender Information Value Date Recorded Sex Assigned at Not on file Legal Sex Female 1:04 AM EDT Gender Identity Not on file Sexual Orientation Not on file documented as of this encounter Plan of Treatment Upcoming Encounters Date Type Department Care Team ([facility] st Contact Info) Description 10/10/2025 10:00 AM EST Office Visit LEATHA CARRILLO - [facility] 2315 [facility] [address] [place] [phone] Brenda Clay MD 2315 [facility] [address] [place] [phone] 04/15/2026 10:00 AM EDT Office Visit [facility]HA [facility] + [facility] 4247 [facility] [address] [place] [phone] Sena Dominguez PA 4247 [facility] [place] [address] documented as of this encounter Visit Diagnoses Not on filedocumented in this encounter Care Teams Traffic And Transport Planner Relationship Specialty Start Date End Date Meme Steel MD [address] [place] [address] 105 [place] [address] PCP - General Pediatrics 06/05/18 04/25/22 No Pcp, Pcp PCP - General 06/08/22 07/19/22 Guadalupe Mcbride MD PCP - General Family Medicine 07/20/22 11/01/23 Sena Dominguez PA [address] [place] [address] [place] [address] PCP - BRADY Physician Clay Dry Press Operator 11/02/23 Levy Barry MD [address] [place] [address] [place] [address] PCP - General Family Medicine 12/20/23 documented as of this encounter
--- OUTSIDE RECORDS SUMMARY | 2025-09-18 11:37 | XMS_ITS | Encounter Summary ---
Author Organization [facility] work ([facility]) Address [address] [place] [address] Care Team Providers Care Collar Padder Blindstitch Name Role Phone Meme Steel MD Primary Care Provider [phone] Pcp, Pcp Primary Care Provider Guadalupe Sosa MD Primary Care Provider [phone] Sena Dominguez Unavailable [phone] Levy Barry MD Primary Care Provider [phone] Source Comments The information that you have received may contain highly confidential and/or federally protected health information. This information has been disclosed to you from records protected by [facility]. The law prohibits you from [...] contact the sender immediately.[facility] ([facility]) Encounter Details Date Type Department Care Team (Late st Contact Info) Description 2004 Historical Note [facility] [employer] System Devyn Vásquez MD [address] [place] [address] [phone] Social History Tobacco Use Types Packs/Day Years Used Date Smoking Tobacco: Never Assessed Comments Unknown Sex and Gender Information Value Date Recorded Sex Assigned at Not on file Legal Sex Female 1:04 AM EDT Gender Identity Not on file Sexual Orientation Not on file documented as of this encounter Plan of Treatment Upcoming Encounters Date Type Department Care Team ([facility] st Contact Info) Description 10/10/2025 10:00 AM EST Office Visit LEATHA CARRILLO - [facility] 2315 [facility] G30 [place] [phone] Brenda Clay MD 2315 [facility] [address] [place] [phone] 04/15/2026 10:00 AM EDT Office Visit LEATHA Primary Care at [facility] + [facility] 4247 [facility] [address] [place] [phone] Sena Dominguez PA 4247 [facility] [place] [address] documented as of this encounter Visit Diagnoses Not on filedocumented in this encounter Care Teams Collar Padder Blindstitch Relationship Specialty Start Date End Date Meme Steel MD [address] [place] [address] 105 [place] [address] PCP - General Pediatrics 06/05/18 04/25/22 No Pcp, Pcp PCP - General 06/08/22 07/19/22 Guadalupe Mcbride MD PCP - General Family Medicine 07/20/22 11/01/23 Sena Dominguez PA [address] [place] [address] [place] [address] PCP - BRADY Physician Bank Vault Custodian 11/02/23 Levy Barry MD [address] [place] [address] [place] [address] PCP - General Family Medicine 12/20/23 documented as of this encounter
--- OUTSIDE RECORDS SUMMARY | 2025-09-18 11:37 | XMS_ITS | Encounter Summary ---
Author Organization [facility] work ([facility]) Address [address] [place] [address] Care Team Providers Care Corner Block Cutter Name Role Phone Meme Steel MD Primary Care Provider [phone] Pcp, Pcp Primary Care Provider Guadalupe Sosa MD Primary Care Provider [phone] Sena Dominguez Unavailable [phone] Levy Barry MD Primary Care Provider [phone] Source Comments The information that you have received may contain highly confidential and/or federally protected health information. This information has been disclosed to you from records protected by [facility]. The law prohibits you from making [...] the sender immediately.[facility] ([facility]) Encounter Details Date Type Department Care Team (Late st Contact Info) Description 2004 Historical Note [facility] [employer] System Devyn Vásquez MD [address] [place] [address] [phone] Social History Tobacco Use Types Packs/Day Years [...] - [facility] 2315 [facility] [address] [place] [phone] Brenda Clay MD 2315 [facility] [address] [place] [phone] 04/15/2026 10:00 AM EDT Office Visit LEATHA Primary [facility] at [facility] + [facility] [address] [facility] [address] [place] [phone] Sena Dominguez PA 4247 [facility] [place] [address] documented as of this encounter Visit Diagnoses Not on filedocumented in this encounter Care Teams Corner Block Cutter Relationship Specialty Start Date End Date Meme Steel MD [address] [place] [address] 105 [place] [address] PCP - General Pediatrics 06/05/18 04/25/22 No Pcp, Pcp PCP - General 06/08/22 07/19/22 Guadalupe Mcbride MD PCP - General Family Medicine 07/20/22 11/01/23 Sena Dominguez PA [address] [place] [address] [place] [address] PCP - BRADY Physician Video Library Assistant 11/02/23 Levy Barry MD [address] [place] [address] [place] [address] PCP - General Family Medicine 12/20/23 documented as of this encounter
--- OUTSIDE RECORDS SUMMARY | 2025-09-18 11:38 | XMS_ITS | Encounter Summary ---
Author Organization [facility] work ([facility]) Address [address] [place] [address] Care Team Providers Care Utility Operator Name Role Phone Meme Steel MD Primary Care Provider [phone] Pcp, Pcp Primary Care Provider Guadalupe Sosa MD Primary Care Provider [phone] Sena Dominguez Unavailable [phone] Levy Barry MD Primary Care Provider [phone] Source Comments The information that you have [...] please contact the sender immediately.[facility] ([facility]) Encounter Details Date Type Department Care Team (Late st Contact Info) Description 04/15/2011 Historical Note [facility] [employer] System Devyn Vásquez MD [address] [place] [address] [phone] Social History Tobacco Use Types Packs/Day Years Used Date Smoking Tobacco: Never Assessed Comments Unknown Sex and Gender Information Value Date Recorded Sex Assigned at Not on file Legal Sex Female 1:04 AM EDT Gender Identity Not on file Sexual Orientation Not on file documented as of this encounter Plan of Treatment Upcoming Encounters Date Type Department Care Team ([facility] st Contact Info) Description 10/10/2025 10:00 AM EST Office Visit LEATHA CARRILLO - [facility] 2315 [facility] G[address] [place] [phone] Brenda Clay MD 2315 [facility] [address] [place] [phone] 04/15/2026 10:00 AM EDT Office Visit LEATHA [facility] at [facility] + [facility] 4247 [facility] 105 [place] [phone] Sena Dominguez PA [address] [facility] [place] [address] documented as of this encounter Visit Diagnoses Not on filedocumented in this encounter Care Teams Utility Operator Relationship Specialty Start Date End Date Meme Steel MD [address] [place] [address] 105 [place] [address] PCP - General Pediatrics 06/05/18 04/25/22 No Pcp, Pcp PCP - General 06/08/22 07/19/22 Guadalupe Mcbride MD PCP - General Family Medicine 07/20/22 11/01/23 Sena Dominguez PA [address] [place] [address] [place] [address] PCP - BRADY Physician Director Account Management 11/02/23 Levy Barry MD [address] [place] [address] [place] [address] PCP - General Family Medicine 12/20/23 documented as of this encounter
--- OUTSIDE RECORDS SUMMARY | 2025-09-18 11:38 | XMS_ITS | Encounter Summary ---
Author Organization [facility] work ([facility]) Address [address] [facility] [address] [facility] [address] [place] [address] Care Team Providers Care Trader Name Role Phone Meme Steel MD Primary Care Provider [phone] Pcp, Pcp Primary Care Provider Guadalupe Sosa MD Primary Care Provider [phone] Sena Dominguez Unavailable [phone] Levy Barry MD Primary Care Provider [phone] Source Comments The information that you have [...] please contact the sender immediately.[facility] ([facility]) Encounter Details Date Type Department Care Team (Late st Contact Info) Description 09/16/2012 Historical Note [facility] StartupDigest System Devyn Vásquez MD [address] [place] [address] [phone] Social History Tobacco Use Types Packs/Day Years [...] LEATHA CARRILLO - [facility] at [facility] [address] [facility] [address] [place] [phone] Brenda Clay MD 2315 [facility] [address] [place] [phone] 04/15/2026 10:00 AM EDT Office Visit [facility]HA [facility] at [facility] + [facility] [address] [facility] 105 [place] [phone] Sena Dominguez PA 4247 [facility] [place] [address] documented as of this encounter Visit Diagnoses Not on filedocumented in this encounter Care Teams Trader Relationship Specialty Start Date End Date Meme Steel MD [address] [place] [address] 105 [place] [address] PCP - General Pediatrics 06/05/18 04/25/22 No Pcp, Pcp PCP - General 06/08/22 07/19/22 Guadalupe Mcbride MD PCP - General Family Medicine 07/20/22 11/01/23 Sena Dominguez PA [address] [place] [address] [place] [address] PCP - BRADY Physician Shot Dropper 11/02/23 Levy Barry MD [address] [place] [address] [place] [address] PCP - General Family Medicine 12/20/23 documented as of this encounter
--- OUTSIDE RECORDS SUMMARY | 2025-09-18 11:38 | XMS_ITS | Encounter Summary ---
Author Organization [facility] work ([facility]) Address [address] [place] [address] Care Team Providers Care Load Test Mechanic Name Role Phone Meme Steel MD Primary Care Provider [phone] Pcp, Pcp Primary Care Provider Guadalupe Sosa MD Primary Care Provider [phone] Sena Dominguez Unavailable [phone] Levy Barry MD Primary Care Provider [phone] Source Comments The information that you have received may contain highly confidential and/or federally protected health information. This information has been disclosed to you from records protected by [facility]. The law prohibits you from making any [...] immediately.[facility] ([facility]) Encounter Details Date Type Department Care Team (Late st Contact Info) Description 02/08/2006 Historical Note [facility] makexyz System Devyn Vásquez MD [address] [place] [address] [phone] Social History Tobacco Use Types Packs/Day Years Used Date Smoking Tobacco: Never Assessed Comments Unknown Sex and Gender Information Value Date Recorded Sex Assigned at Not on file Legal Sex Female 1:04 AM EDT Gender Identity Not on file Sexual Orientation Not on file documented as of this encounter Plan of Treatment Upcoming Encounters Date Type Department Care Team ([facility] st Contact Info) Description 10/10/2025 10:00 AM EST Office Visit LEATHA CARRILLO - [facility] at [facility] [address] [facility] [address] [place] [phone] Brenda Clay MD 2315 [facility] [address] [place] [phone] 04/15/2026 10:00 AM EDT Office Visit LEATHA Primary [facility] at [facility] + [facility] [address] [facility] 105 [place] [phone] Sena Dominguez PA 4[address] [facility] [place] [address] documented as of this encounter Visit Diagnoses Not on filedocumented in this encounter Care Teams Load Test Mechanic Relationship Specialty Start Date End Date Meme Steel MD [address] [place] [address] 105 [place] [address] PCP - General Pediatrics 06/05/18 04/25/22 No Pcp, Pcp PCP - General 06/08/22 07/19/22 Guadalupe Mcbride MD PCP - General Family Medicine 07/20/22 11/01/23 Sena Dominguez PA [address] [place] [address] [place] [address] PCP - BRADY Physician Straw Hat Plunger Operator 11/02/23 Levy Barry MD [address] [place] [address] [place] [address] PCP - General Family Medicine 12/20/23 documented as of this encounter
--- OUTSIDE RECORDS SUMMARY | 2025-09-18 11:38 | XMS_ITS | Encounter Summary ---
Author Organization [facility] work ([facility]) Address [address] [place] [address] Care Team Providers Care Laminate Floor Installer Name Role Phone Meme Steel MD Primary Care Provider [phone] Pcp, Pcp Primary Care Provider Guadalupe Sosa MD Primary Care Provider [phone] Sena Dominguez Unavailable [phone] Levy Barry MD Primary Care Provider [phone] Source Comments The information that you have received may contain highly confidential and/or federally protected health information. This information has been disclosed to you from records protected by [facility]. The law prohibits you from making any [...] contact the sender immediately.[facility] ([facility]) Encounter Details Date Type Department Care Team (Late st Contact Info) Description 02/08/2006 Historical Note [facility] [employer] System Devyn Vásquez MD [address] [place] [address] [phone] Social History Tobacco Use Types Packs/Day Years [...] LEATHA CARRILLO - [facility] at [facility] [address] [facility] [address] [place] [phone] Brenda Clay MD 2315 [facility] [address] [place] [phone] 04/15/2026 10:00 AM EDT Office Visit [facility]HA [facility] at [facility] + [facility] [facility] [address] [place] [phone] Sena Dominguez PA 4[address] [facility] [place] [address] documented as of this encounter Visit Diagnoses Not on filedocumented in this encounter Care Teams Laminate Floor Installer Relationship Specialty Start Date End Date Meme Steel MD [address] [place] [address] 105 [place] [address] PCP - General Pediatrics 06/05/18 04/25/22 No Pcp, Pcp PCP - General 06/08/22 07/19/22 Guadalupe Mcbride MD PCP - General Family Medicine 07/20/22 11/01/23 Sena Dominguez PA [address] [place] [address] [place] [address] PCP - BRADY Physician Functional Skills Tutor 11/02/23 Levy Barry MD [address] [place] [address] [place] [address] PCP - General Family Medicine 12/20/23 documented as of this encounter
--- OUTSIDE RECORDS SUMMARY | 2025-09-18 11:38 | XMS_ITS | Encounter Summary ---
Author Organization [facility] work ([facility]) Address [address] [place] [address] Care Team Providers Care Jewelry Drill Operator Name Role Phone Meme Steel MD Primary Care Provider [phone] Pcp, Pcp Primary Care Provider Guadalupe Sosa MD Primary Care Provider [phone] Sena Dominguez Unavailable [phone] Levy Barry MD Primary Care Provider [phone] Source Comments The information that you have received may contain highly confidential and/or federally protected health information. This information has been disclosed to you from records protected by [facility]. The law prohibits you from making [...] sender immediately.[facility] ([facility]) Encounter Details Date Type Department Care Team (Late st Contact Info) Description 09/10/2012 Historical Note [facility] [employer] Intermedia System Devyn Vásquez MD [address] [place] [address] [phone] Social History Tobacco Use Types Packs/Day Years Used Date Smoking Tobacco: Never Assessed Comments Unknown Sex and Gender Information Value Date Recorded Sex Assigned at Not on file Legal Sex Female 1:04 AM EDT Gender Identity Not on file Sexual Orientation Not on file documented as of this encounter Plan of Treatment Upcoming Encounters Date Type Department Care Team ([facility] st Contact Info) Description 10/10/2025 10:00 AM EST Office Visit LEATHA CARRILLO - [facility] [address] [facility] [address] [place] [phone] Brenda Clay MD 2315 [facility] [address] [place] [phone] 04/15/2026 10:00 AM EDT Office Visit LEATHA [facility] at [facility] + [facility] 4[address] [facility] 105 [place] [phone] Sena Dominguez PA 4247 [facility] [place] [address] documented as of this encounter Visit Diagnoses Not on filedocumented in this encounter Care Teams Jewelry Drill Operator Relationship Specialty Start Date End Date Meme Steel MD [address] [place] [address] 105 [place] [address] PCP - General Pediatrics 06/05/18 04/25/22 No Pcp, Pcp PCP - General 06/08/22 07/19/22 Guadalupe Mcbride MD PCP - General Family Medicine 07/20/22 11/01/23 Sena Dominguez PA [address] [place] [address] [place] [address] PCP - BRADY Physician Dot Etcher 11/02/23 Levy Barry MD [address] [place] [address] [place] [address] PCP - General Family Medicine 12/20/23 documented as of this encounter
--- OUTSIDE RECORDS SUMMARY | 2025-09-18 11:38 | XMS_ITS | Encounter Summary ---
Author Organization [facility] work ([facility]) Address [address] [place] [address] Care Team Providers Care Pharmacy Ancillary Name Role Phone Meme Steel MD Primary Care Provider [phone] Pcp, Pcp Primary Care Provider Guadalupe oSsa MD Primary Care Provider [phone] Sena Dominguez Unavailable [phone] Levy Barry MD Primary Care Provider [phone] Source Comments The information that you have received may contain highly confidential and/or federally protected health information. This information has been disclosed to you from records protected by [facility]. The law prohibits [...] contact the sender immediately.[facility] ([facility]) Encounter Details Date Type Department Care Team (Late st Contact Info) Description 10/31/2017 Historical Note [facility] NoteWagon System Devyn Vásquez MD [address] [place] [address] [phone] Social History Tobacco Use Types Packs/Day Years [...] CARRILLO - [facility] at [facility] 23[address] [facility] [address] [place] [phone] Brenda Clay MD 2315 [facility] [address] [place] [phone] 04/15/2026 10:00 AM EDT Office Visit LE[facility]HA [facility] + [facility] [address] [facility] 105 [place] [phone] Sena Dominguez PA [address] [facility] [place] [address] documented as of this encounter Visit Diagnoses Not on filedocumented in this encounter Care Teams Pharmacy Ancillary Relationship Specialty Start Date End Date Meme Steel MD [address] [place] [address] 105 [place] [address] PCP - General Pediatrics 06/05/18 04/25/22 No Pcp, Pcp PCP - General 06/08/22 07/19/22 Guadalupe Mcbride MD PCP - General Family Medicine 07/20/22 11/01/23 Sena Dominguez PA [address] [place] [address] [place] [address] PCP - BRADY Physician Motor Vehicle Emissions Inspector 11/02/23 Levy Barry MD [address] [place] [address] [place] [address] PCP - General Family Medicine 12/20/23 documented as of this encounter
--- OUTSIDE RECORDS SUMMARY | 2025-09-18 11:38 | XMS_ITS | Encounter Summary ---
Author Organization [facility] work ([facility]) Address [address] [place] [address] Care Team Providers Care Learning Analyst Name Role Phone Meme Steel MD Primary Care Provider [phone] Pcp, Pcp Primary Care Provider Guadalupe Sosa MD Primary Care Provider [phone] Sena Dominguez Unavailable Levy Barry MD Primary Care Provider [phone] Source Comments The information that you have received may contain highly confidential and/or federally protected health information. This information has been disclosed to you from records protected by [facility]. The law prohibits you from making [...] [facility] ([facility]) Encounter Details Date Type Department Care Team (Late st Contact Info) Description 05/21/2012 Historical Note [facility] emotion.me System Devyn Vásquez MD [address] [place] [address] [phone] Social History Tobacco Use Types Packs/Day Years Used Date Smoking Tobacco: Never Assessed Comments Unknown Sex and Gender Information Value Date Recorded Sex Assigned at Not on file Legal Sex Female 1:04 AM EDT Gender Identity Not on file Sexual Orientation Not on file documented as of this encounter Plan of Treatment Upcoming Encounters Date Type Department Care Team ([facility] st Contact Info) Description 10/10/2025 10:00 AM EST Office Visit LEATHA CARRILLO - [facility] at [facility] [address] [facility] G30 [place] [phone] Brenda Clay MD 2315 [facility] [address] [place] [phone] 04/15/2026 10:00 AM EDT Office Visit LEATHA [facility] at [facility] + [facility] [address] [facility] 105 [place] [phone] Sena Dominguez PA 4247 [facility] [place] [address] documented as of this encounter Visit Diagnoses Not on filedocumented in this encounter Care Teams Learning Analyst Relationship Specialty Start Date End Date Meme Steel MD [address] [place] [address] 105 [place] [address] PCP - General Pediatrics 06/05/18 04/25/22 No Pcp, Pcp PCP - General 06/08/22 07/19/22 Guadalupe Mcbride MD PCP - General Family Medicine 07/20/22 11/01/23 Sena Dominguez PA [address] [place] [address] [place] [address] PCP - BRADY Physician Crew Person 11/02/23 Levy Barry MD [address] [place] [address] [place] [address] PCP - General Family Medicine 12/20/23 documented as of this encounter
--- OUTSIDE RECORDS SUMMARY | 2025-09-18 11:38 | XMS_ITS | Encounter Summary ---
Author Organization [facility] work ([facility]) Address [address] [facility] [address] [address] [facility] [address] [place] [address] Care Team Providers Care Senior Training Specialist Name Role Phone Meme Steel MD Primary Care Provider [phone] Pcp, Pcp Primary Care Provider Guadalupe Sosa MD Primary Care Provider [phone] Sena Dominguez Unavailable [phone] Levy Barry MD Primary Care Provider [phone] Source Comments The information that you have received may contain highly confidential and/or federally protected health information. This information has been disclosed to you from records protected by [facility]. The law prohibits you from making [...] sender immediately.[facility] ([facility]) Encounter Details Date Type Department Care Team (Late st Contact Info) Description 11/06/2005 Historical Note [facility] [employer] System Devyn Vásquez MD [address] [place] [address] [phone] Social History Tobacco Use Types Packs/Day Years Used Date Smoking Tobacco: Never Assessed Comments Unknown Sex and Gender Information Value Date Recorded Sex Assigned at Not on file Legal Sex Female 1:04 AM EDT Gender Identity Not on file Sexual Orientation Not on file documented as of this encounter Plan of Treatment Upcoming Encounters Date Type Department Care Team ([facility] st Contact Info) Description 10/10/2025 10:00 AM EST Office Visit LEATHA CARRILLO - [facility] 2315 [facility] [address]30 [place] [phone] Brenda Clay MD 2315 [facility] [address] [place] [phone] 04/15/2026 10:00 AM EDT Office Visit LEATHA [facility] at [facility] + [facility] 4247 [facility] 105 [place] [phone] Sena Dominguez PA 4247 [facility] [place] [address] documented as of this encounter Visit Diagnoses Not on filedocumented in this encounter Care Teams Senior Training Specialist Relationship Specialty Start Date End Date Meme Steel MD [address] [place] [address] 105 [place] [address] PCP - General Pediatrics 06/05/18 04/25/22 No Pcp, Pcp PCP - General 06/08/22 07/19/22 Guadalupe Mcbride MD PCP - General Family Medicine 07/20/22 11/01/23 Sena Dominguez PA [address] [place] [address] [place] [address] PCP - BRADY Physician Boiling Off Winder 11/02/23 Levy Barry MD [address] [place] [address] [place] [address] PCP - General Family Medicine 12/20/23 documented as of this encounter
--- OUTSIDE RECORDS SUMMARY | 2025-09-18 11:38 | XMS_ITS | Encounter Summary ---
Author Organization [facility] work ([facility]) Address [address] [place] [address] Care Team Providers Care Direct Sales Consultant Name Role Phone Meme Steel MD Primary Care Provider [phone] Pcp, Pcp Primary Care Provider Guadalupe Sosa MD Primary Care Provider [phone] Sena Dominguez Unavailable [phone] Levy Barry MD Primary Care Provider [phone] Source Comments The information that you have received may contain highly confidential and/or federally protected health information. This information has been disclosed to you from records protected by [facility]. The law prohibits you from [...] contact the sender immediately.[facility] ([facility]) Encounter Details Date Type Department Care Team (Late st Contact Info) Description 05/24/2012 Historical Note [facility] [employer] System Devyn Vásquez MD [address] [place] [address] [phone] Social History Tobacco Use Types Packs/Day Years Used Date Smoking Tobacco: Never Assessed Comments Unknown Sex and Gender Information Value Date Recorded Sex Assigned at Not on file Legal Sex Female 1:04 AM EDT Gender Identity Not on file Sexual Orientation Not on file documented as of this encounter Plan of Treatment Upcoming Encounters Date Type Department Care Team ([facility] st Contact Info) Description 10/10/2025 10:00 AM EST Office Visit LEATHA CARRILLO - [facility] [address] [facility] [address] [place] [phone] Brenda Clay MD 2315 [facility] [address] [place] [phone] 04/15/2026 10:00 AM EDT Office Visit LEATHA Primary [facility] at [facility] + [facility] 4247 [facility] 105 [place] [phone] Sena Dominguez PA [address] [facility] [place] [address] documented as of this encounter Visit Diagnoses Not on filedocumented in this encounter Care Teams Direct Sales Consultant Relationship Specialty Start Date End Date Meme Steel MD [address] [place] [address] 105 [place] [address] PCP - General Pediatrics 06/05/18 04/25/22 No Pcp, Pcp PCP - General 06/08/22 07/19/22 Guadalupe Mcbride MD PCP - General Family Medicine 07/20/22 11/01/23 Sena Dominguez PA [address] [place] [address] [place] [address] PCP - BRADY Physician Intermediate School Teacher 11/02/23 Levy Barry MD [address] [place] [address] [place] [address] PCP - General Family Medicine 12/20/23 documented as of this encounter
--- OUTSIDE RECORDS SUMMARY | 2025-09-18 11:38 | XMS_ITS | Encounter Summary ---
Author Organization [facility] work ([facility]) Address [address] [place] [address] Care Team Providers Care Investment Underwriter Name Role Phone Meme Steel MD Primary Care Provider [phone] Pcp, Pcp Primary Care Provider Guadalupe Sosa MD Primary Care Provider [phone] Sena Dominguez Unavailable [phone] Levy Barry MD Primary Care Provider [phone] Source Comments The information that you have [...] please contact the sender immediately.[facility] ([facility]) Encounter Details Date Type Department Care Team (Late st Contact Info) Description 01/23/2006 Historical Note [facility] TopPatch System Devyn Vásquez MD [address] [place] [address] [phone] Social History Tobacco Use Types Packs/Day Years Used Date Smoking Tobacco: Never Assessed Comments Unknown Sex and Gender Information Value Date Recorded Sex Assigned at Not on file Legal Sex Female 1:04 AM EDT Gender Identity Not on file Sexual Orientation Not on file documented as of this encounter Plan of Treatment Upcoming Encounters Date Type Department Care Team ([facility] st Contact Info) Description 10/10/2025 10:00 AM EST Office Visit LEATHA CARRILLO - [facility] at [facility] [address] [facility] [address]30 [place] [phone] Brenad Clay MD 2315 [facility] [address] [place] [phone] 04/15/2026 10:00 AM EDT Office Visit [facility]HA [facility] at [facility] + [facility] 4247 [facility] 105 [place] [phone] Sena Dominguez PA 4247 [facility] [place] [address] documented as of this encounter Visit Diagnoses Not on filedocumented in this encounter Care Teams Investment Underwriter Relationship Specialty Start Date End Date Meme Steel MD [address] [place] [address] 105 [place] [address] PCP - General Pediatrics 06/05/18 04/25/22 No Pcp, Pcp PCP - General 06/08/22 07/19/22 Guadalupe Mcbride MD PCP - General Family Medicine 07/20/22 11/01/23 Sena Dominguez PA [address] [place] [address] [place] [address] PCP - BRADY Physician Podiatry Doctor 11/02/23 Levy Barry MD [address] [place] [address] [place] [address] PCP - General Family Medicine 12/20/23 documented as of this encounter
--- OUTSIDE RECORDS SUMMARY | 2025-09-18 11:38 | XMS_ITS | Encounter Summary ---
Author Organization [facility] work ([facility]) Address [address] [place] [address] Care Team Providers Care Consumer Insights Specialist Name Role Phone Meme Steel MD Primary Care Provider [phone] Pcp, Pcp Primary Care Provider Guadalupe Sosa MD Primary Care Provider [phone] Sena Dominguez Unavailable [phone] Levy Barry MD Primary Care Provider [phone] Source Comments The information that you have received may contain highly confidential and/or federally protected health information. This information has been disclosed to you from records protected by [facility]. The law prohibits you from making [...] Contact Info) Description 05/22/2012 Historical Note [facility] [employer] Devyn Vásquez MD [address] [place] [address] [phone] Social History Tobacco Use Types Packs/Day Years Used Date Smoking Tobacco: Never Assessed Comments Unknown Sex and Gender Information Value Date Recorded Sex Assigned at Not on file Legal Sex Female 1:04 AM EDT Gender Identity Not on file Sexual Orientation Not on file documented as of this encounter Plan of Treatment Upcoming Encounters Date Type Department Care Team ([facility] st Contact Info) Description 10/10/2025 10:00 AM EST Office Visit LEATHA CARRILLO - [facility] at [facility] [address] [facility] [address] [place] [phone] Brenda Clay MD 2315 [facility] [address] [place] [phone] 04/15/2026 10:00 AM EDT Office Visit LEATHA [facility] at [facility] + [facility] 4[address] [facility] 105 [place] [phone] Sena Dominguez PA 4247 [facility] [place] [address] documented as of this encounter Visit Diagnoses Not on filedocumented in this encounter Care Teams Consumer Insights Specialist Relationship Specialty Start Date End Date Meme Steel MD [address] [place] [address] 105 [place] [address] PCP - General Pediatrics 06/05/18 04/25/22 No Pcp, Pcp PCP - General 06/08/22 07/19/22 Guadalupe Mcbride MD PCP - General Family Medicine 07/20/22 11/01/23 Sena Dominguez PA [address] [place] [address] [place] [address] PCP - BRADY Physician Radiation Oncology Therapist 11/02/23 Levy Barry MD [address] [place] [address] [place] [address] PCP - General Family Medicine 12/20/23 documented as of this encounter
--- OUTSIDE RECORDS SUMMARY | 2025-09-18 11:38 | XMS_ITS | Encounter Summary ---
Author Organization [facility] work ([facility]) Address [address] [place] [address] Care Team Providers Care Band Tacker Name Role Phone Meme Steel MD Primary Care Provider [phone] Pcp, Pcp Primary Care Provider Guadalupe Sosa MD Primary Care Provider [phone] Sena Dominguez Unavailable [phone] Levy Barry MD Primary Care Provider [phone] Source Comments The information that you have received may contain highly confidential and/or federally protected health information. This information has been disclosed to you from records protected by [facility]. The law prohibits you from making [...] contact the sender immediately.[facility] ([facility]) Encounter Details Date Type Department Care Team (Late st Contact Info) Description 05/21/2012 Historical Note [facility] [employer] [facility] Devyn Vásquez MD [address] [place] [address] [phone] Social History Tobacco Use Types Packs/Day Years [...] LEATHA CARRILLO - [facility] at [facility] 2315 [facility] [address]30 [place] [phone] Brenda Clay MD 2315 [facility] [address] [place] [phone] 04/15/2026 10:00 AM EDT Office Visit LE[facility]HA [facility] at [facility] + [facility] 4247 [facility] 105 [place] [phone] Sena Dominguez PA 4247 [facility] [place] [address] documented as of this encounter Visit Diagnoses Not on filedocumented in this encounter Care Teams Band Tacker Relationship Specialty Start Date End Date Meme Steel MD [address] [place] [address] 105 [place] [address] PCP - General Pediatrics 06/05/18 04/25/22 No Pcp, Pcp PCP - General 06/08/22 07/19/22 Guadalupe Mcbride MD PCP - General Family Medicine 07/20/22 11/01/23 Sena Dominguez PA [address] [place] [address] [place] [address] PCP - BRADY Physician Flight Simulator Teacher 11/02/23 Levy Barry MD [address] [place] [address] [place] [address] PCP - General Family Medicine 12/20/23 documented as of this encounter
--- OUTSIDE RECORDS SUMMARY | 2025-09-18 11:38 | XMS_ITS | Encounter Summary ---
Author Organization [facility] work ([facility]) Address [address] [place] [address] Care Team Providers Care Quality Control Head Name Role Phone Meme Steel MD Primary Care Provider [phone] Pcp, Pcp Primary Care Provider Guadalupe Sosa MD Primary Care Provider [phone] Sena Dominguez Unavailable [phone] Levy Barry MD Primary Care Provider [phone] Source Comments The information that you have [...] immediately.[facility] ([facility]) Encounter Details Date Type Department Care Team (Late st Contact Info) Description 04/15/2011 Historical Note [facility] [employer] Devyn Vásquez MD [address] [place] [address] [phone] Social History Tobacco Use Types Packs/Day Years Used Date Smoking Tobacco: Never Assessed Comments Unknown Sex and Gender Information Value Date Recorded Sex Assigned at Not on file Legal Sex Female 1:04 AM EDT Gender Identity Not on file Sexual Orientation Not on file documented as of this encounter Plan of Treatment Upcoming Encounters Date Type Department Care Team ([facility] st Contact Info) Description 10/10/2025 10:00 AM EST Office Visit LEATHA CARRILLO - [facility] 2315 [facility] G30 [place] [phone] Brenda Clay MD 2315 [facility] [address] [place] [phone] 04/15/2026 10:00 AM EDT Office Visit LAETHA [facility] at [facility] + [facility] 4247 [facility] [address] [place] [phone] Sena Dominguez PA 4247 [facility] [place] [address] documented as of this encounter Visit Diagnoses Not on filedocumented in this encounter Care Teams Quality Control Head Relationship Specialty Start Date End Date Meme Steel MD [address] [place] [address] 105 [place] [address] PCP - General Pediatrics 06/05/18 04/25/22 No Pcp, Pcp PCP - General 06/08/22 07/19/22 Guadalupe Mcbride MD PCP - General Family Medicine 07/20/22 11/01/23 Sena Dominguez PA [address] [place] [address] [place] [address] PCP - BRADY Physician Washtub Worker Helper 11/02/23 Levy Barry MD [address] [place] [address] [place] [address] PCP - General Family Medicine 12/20/23 documented as of this encounter
--- OUTSIDE RECORDS SUMMARY | 2025-09-18 11:38 | XMS_ITS | Encounter Summary ---
Author Organization [facility] work ([facility]) Address [address] [place] [address] Care Team Providers Care Care Management Coordinator Name Role Phone Meme Steel MD Primary Care Provider No Pcp, Pcp Primary Care Provider Guadalupe Sosa MD Primary Care Provider [phone] Sena Dominguez Unavailable [phone] Levy Barry MD Primary Care Provider [phone] Source Comments The information that you have [...] Contact Info) Description 02/09/2006 Historical Note [facility] [employer] [facility] Devyn Vásquez MD [address] [place] [address] [phone] Social History Tobacco Use Types Packs/Day Years [...] LEATHA CARRILLO - [facility] 2315 [facility] [address]30 [place] [phone] Brenda Clay MD 2315 [facility] [address] [place] [phone] 04/15/2026 10:00 AM EDT Office Visit LEATHA Primary Care at [facility] + [facility] [address] [facility] 105 [place] [phone] Sena Dominguez PA 4247 [facility] [place] [address] documented as of this encounter Visit Diagnoses Not on filedocumented in this encounter Care Teams Care Management Coordinator Relationship Specialty Start Date End Date Meme Steel MD [address] [place] [address] 105 [place] [address] PCP - General Pediatrics 06/05/18 04/25/22 No Pcp, Pcp PCP - General 06/08/22 07/19/22 Guadalupe Mcbride MD PCP - General Family Medicine 07/20/22 11/01/23 Sena Dominguez PA [address] [place] [address] [place] [address] PCP - BRADY Physician Aircraft Avionics Technician 11/02/23 Levy Barry MD [address] [place] [address] [place] [address] PCP - General Family Medicine 12/20/23 documented as of this encounter
--- OUTSIDE RECORDS SUMMARY | 2025-09-18 11:38 | XMS_ITS | Encounter Summary ---
Author Organization [facility] work ([facility]) Address [address] [facility] [address] [place] [address] Care Team Providers Care Violin Restorer Name Role Phone Meme Steel MD Primary Care Provider No Pcp, Pcp Primary Care Provider Guadalupe Sosa MD Primary Care Provider [phone] Sena Dominguez Unavailable [phone] Levy Barry MD Primary Care Provider [phone] Source Comments The information that you have received may contain highly confidential and/or federally protected health information. This information has been disclosed to you from records protected by [facility]. The law prohibits you from making [...] please contact the sender immediately.[facility] ([facility]) Encounter Details Date Type Department Care Team (Late st Contact Info) Description 05/24/2012 Historical Note [facility] [employer] Devyn Vásquez MD [address] [place] [address] [phone] Social History Tobacco Use Types Packs/Day Years [...] LEATHA CARRILLO - [facility] at [facility] 2315 [facility] [address]30 [place] [phone] Brenda Clay MD 2315 [facility] [address] [place] [phone] 04/15/2026 10:00 AM EDT Office Visit LEATHA Primary [facility] at [facility] + [facility] [address] [facility] [place] 105 [place] [phone] Sena Dominguez PA 4247 [facility] [place] [address] documented as of this encounter Visit Diagnoses Not on filedocumented in this encounter Care Teams Violin Restorer Relationship Specialty Start Date End Date Meme Steel MD [address] [place] [address] 105 [place] [address] PCP - General Pediatrics 06/05/18 04/25/22 No Pcp, Pcp PCP - General 06/08/22 07/19/22 Guadalupe Mcbride MD PCP - General Family Medicine 07/20/22 11/01/23 Sena Dominguez PA [address] [place] [address] [place] [address] PCP - BRADY Physician Drywall Applicator 11/02/23 Levy Barry MD [address] [place] [address] [place] [address] PCP - General Family Medicine 12/20/23 documented as of this encounter
--- OUTSIDE RECORDS SUMMARY | 2025-09-18 11:38 | XMS_ITS | Encounter Summary ---
Author Organization [facility] work ([facility]) Address [address] [facility] [address] [facility] [address] [place] [address] Care Team Providers Care Qa Architect Name Role Phone Meme Steel MD Primary Care Provider [phone] Pcp, Pcp Primary Care Provider Guadalupe Sosa MD Primary Care Provider [phone] Sena Dominguez Unavailable [phone] Levy Barry MD Primary Care Provider [phone] Source Comments The information that you have received may contain highly confidential and/or federally protected health information. This information has been disclosed to you from records protected by [facility]. The law prohibits you from making [...] contact the sender immediately.[facility] ([facility]) Encounter Details Date Type Department Care Team (Late st Contact Info) Description 05/24/2012 Historical Note [facility] [employer] Devyn Vásquez MD [address] [place] [address] [phone] Social History Tobacco Use Types Packs/Day Years Used Date Smoking Tobacco: Never Assessed Comments Unknown Sex and Gender Information Value Date Recorded Sex Assigned at Not on file Legal Sex Female 1:04 AM EDT Gender Identity Not on file Sexual Orientation Not on file documented as of this encounter Plan of Treatment Upcoming Encounters Date Type Department Care Team ([facility] st Contact Info) Description 10/10/2025 10:00 AM EST Office Visit LEATHA CARRILLO - [facility] at [facility] 2315 [facility] [address]30 [place] [phone] Brenda Clay MD 2315 [facility] [address] [place] [phone] 04/15/2026 10:00 AM EDT Office Visit LEATHA [facility] at [facility] + [facility] [address] [facility] 105 [place] [phone] Sena Dominguez PA [address] [facility] [place] [address] documented as of this encounter Visit Diagnoses Not on filedocumented in this encounter Care Teams Qa Architect Relationship Specialty Start Date End Date Meme Steel MD [address] [place] [address] 105 [place] [address] PCP - General Pediatrics 06/05/18 04/25/22 No Pcp, Pcp PCP - General 06/08/22 07/19/22 Guadalupe Mcbride MD PCP - General Family Medicine 07/20/22 11/01/23 Sena Dominguez PA [address] [place] [address] [place] [address] PCP - BRADY Physician Plumbing Mechanic 11/02/23 Levy Barry MD [address] [place] [address] [place] [address] PCP - General Family Medicine 12/20/23 documented as of this encounter
--- OUTSIDE RECORDS SUMMARY | 2025-09-18 11:38 | XMS_ITS | Encounter Summary ---
Author Organization [facility] work ([facility]) Address [address] [place] [address] Care Team Providers Care Manager Marketing Sales Name Role Phone Meme Steel MD Primary Care Provider [phone] Pcp, Pcp Primary Care Provider Guadalupe Sosa MD Primary Care Provider [phone] Sena Dominguez Unavailable [phone] Levy Barry MD Primary Care Provider [phone] Source Comments The information that you have received may contain highly confidential and/or federally protected health information. This information has been disclosed to you from records protected by [facility]. The law prohibits you from [...] sender immediately.[facility] ([facility]) Encounter Details Date Type Department Care Team (Late st Contact Info) Description 05/24/2012 Historical Note [facility] [employer] [facility] Devyn Vásquez MD [address] [place] [address] [phone] Social History Tobacco Use Types Packs/Day Years Used Date Smoking Tobacco: Never Assessed Comments Unknown Sex and Gender Information Value Date Recorded Sex Assigned at Not on file Legal Sex Female 1:04 AM EDT Gender Identity Not on file Sexual Orientation Not on file documented as of this encounter Plan of Treatment Upcoming Encounters Date Type Department Care Team ([facility] st Contact Info) Description 10/10/2025 10:00 AM EST Office Visit LEATHA CARRILLO - [facility] [address] [facility] G[address] [place] [phone] Brenda Clay MD 2315 [facility] [address] [place] [phone] 04/15/2026 10:00 AM EDT Office Visit LEATHA Primary [facility] at [facility] + [facility] 4247 [facility] 105 [place] [phone] Sena Dominguez PA 4247 [facility] [place] [address] documented as of this encounter Visit Diagnoses Not on filedocumented in this encounter Care Teams Manager Marketing Sales Relationship Specialty Start Date End Date Meme Steel MD [address] [place] [address] 105 [place] [address] PCP - General Pediatrics 06/05/18 04/25/22 No Pcp, Pcp PCP - General 06/08/22 07/19/22 Guadalupe Mcbride MD PCP - General Family Medicine 07/20/22 11/01/23 Sena Dominguez PA [address] [place] [address] [place] [address] PCP - BRADY Physician Website Developer 11/02/23 Levy Barry MD [address] [place] [address] [place] [address] PCP - General Family Medicine 12/20/23 documented as of this encounter
--- OUTSIDE RECORDS SUMMARY | 2025-09-18 11:38 | XMS_ITS | Encounter Summary ---
Author Organization [facility] work ([facility]) Address [address] [place] [address] Care Team Providers Care Button Broacher Name Role Phone Meme Steel MD Primary Care Provider [phone] Pcp, Pcp Primary Care Provider Guadalupe Sosa MD Primary Care Provider [phone] Sena Dominguez Unavailable [phone] Levy Barry MD Primary Care Provider [phone] Source Comments The information that you have [...] please contact the sender immediately.[facility] ([facility]) Encounter Details Date Type Department Care Team (Late st Contact Info) Description 01/23/2006 Historical Note [facility] [employer] [facility] Devyn Vásquez MD [address] [place] [address] [phone] Social History Tobacco Use Types Packs/Day Years Used Date Smoking Tobacco: Never Assessed Comments Unknown Sex and Gender Information Value Date Recorded Sex Assigned at Not on file Legal Sex Female 1:04 AM EDT Gender Identity Not on file Sexual Orientation Not on file documented as of this encounter Plan of Treatment Upcoming Encounters Date Type Department Care Team ([facility] st Contact Info) Description 10/10/2025 10:00 AM EST Office Visit LEATHA CARRILLO - [facility] 2315 [facility] G30 [place] [phone] Brenda Clay MD 2315 [facility] [address] [place] [phone] 04/15/2026 10:00 AM EDT Office Visit LEATHA Primary [facility] at [facility] + [facility] 4247 [facility] 105 [place] [phone] Sena Dominguez PA 4247 [facility] [place] [address] documented as of this encounter Visit Diagnoses Not on filedocumented in this encounter Care Teams Button Broacher Relationship Specialty Start Date End Date Meme Steel MD [address] [place] [address] 105 [place] [address] PCP - General Pediatrics 06/05/18 04/25/22 No Pcp, Pcp PCP - General 06/08/22 07/19/22 Guadalupe Mcbride MD PCP - General Family Medicine 07/20/22 11/01/23 Sena Dominguez PA [address] [place] [address] [place] [address] PCP - BRADY Physician Vacuum Caster 11/02/23 Levy Barry MD [address] [place] [address] [place] [address] PCP - General Family Medicine 12/20/23 documented as of this encounter
--- OUTSIDE RECORDS SUMMARY | 2025-09-18 11:38 | XMS_ITS | Encounter Summary ---
Author Organization [facility] work ([facility]) Address [address] [place] [address] Care Team Providers Care Mitering Machine Operator Name Role Phone Meme Steel MD Primary Care Provider [phone] Pcp, Pcp Primary Care Provider Guadalupe Sosa MD Primary Care Provider [phone] Sena Dominguez Unavailable [phone] Levy Barry MD Primary Care Provider [phone] Source Comments The information that you have received may contain highly confidential and/or federally protected health information. This information has been disclosed to you from records protected by [facility]. The law prohibits you from making any [...] error, please contact the sender immediately.[facility] ([facility]) Encounter Details Date Type Department Care Team (Late st Contact Info) Description 09/10/2012 Historical Note [facility] [employer] [facility] Devyn Vásquez MD [address] [place] [address] [phone] Social History Tobacco Use Types Packs/Day Years [...] [facility] 2315 [facility] G30 [place] [phone] Brenda Clay MD 2315 [facility] [address] [place] [phone] 04/15/2026 10:00 AM EDT Office Visit LEATHA [facility] at [facility] + [facility] 4247 [facility] 105 [place] [phone] Sena Dominguez PA 4247 [facility] [place] [address] documented as of this encounter Visit Diagnoses Not on filedocumented in this encounter Care Teams Mitering Machine Operator Relationship Specialty Start Date End Date Meme Steel MD [address] [place] [address] 105 [place] [address] PCP - General Pediatrics 06/05/18 04/25/22 No Pcp, Pcp PCP - General 06/08/22 07/19/22 Guadalupe Mcbride MD PCP - General Family Medicine 07/20/22 11/01/23 Sena Dominguez PA [address] [place] [address] [place] [address] PCP - BRADY Physician Caser 11/02/23 Levy Barry MD [address] [place] [address] [place] [address] PCP - General Family Medicine 12/20/23 documented as of this encounter
--- OUTSIDE RECORDS SUMMARY | 2025-09-18 11:38 | XMS_ITS | Encounter Summary ---
Author Organization [facility] work ([facility]) Address [address] [place] [address] Care Team Providers Care Production Line Worker Name Role Phone Meme Steel MD Primary Care Provider No Pcp, Pcp Primary Care Provider uGadalupe Sosa MD Primary Care Provider [phone] Sena Dominguez Unavailable [phone] Levy Barry MD Primary Care Provider Source Comments The information that you have received may contain highly confidential and/or federally protected health information. This information has been disclosed to you from records protected by [facility]. The law prohibits you from [...] sender immediately.[facility] ([facility]) Encounter Details Date Type Department Care Team (Late st Contact Info) Description 11/06/2005 Historical Note [facility] [employer] System Devyn Vásquez MD [address] [place] [address] [phone] Social History Tobacco Use Types Packs/Day Years Used Date Smoking Tobacco: Never Assessed Comments Unknown Sex and Gender Information Value Date Recorded Sex Assigned at Not on file Legal Sex Female 1:04 AM EDT Gender Identity Not on file Sexual Orientation Not on file documented as of this encounter Plan of Treatment Upcoming Encounters Date Type Department Care Team ([facility] st Contact Info) Description 10/10/2025 10:00 AM EST Office Visit LEATHA [facility] - [facility] [address] [facility] [address] [place] [phone] Brenda Clay MD 2315 [facility] [address] [place] [phone] 04/15/2026 10:00 AM EDT Office Visit [facility] at [facility] + [facility] 4247 [facility] [address] [place] [phone] Sena Dominguez PA 4247 [facility] [place] [address] documented as of this encounter Visit Diagnoses Not on filedocumented in this encounter Care Teams Production Line Worker Relationship Specialty Start Date End Date Meme Steel MD [address] [place] [address] 105 [place] [address] PCP - General Pediatrics 06/05/18 04/25/22 No Pcp, Pcp PCP - General 06/08/22 07/19/22 Guadalupe Mcbride MD PCP - General Family Medicine 07/20/22 11/01/23 Sena Dominguez PA [address] [place] [address] [place] [address] PCP - BRADY Physician Profiler Operator 11/02/23 Levy Barry MD [address] [place] [address] [place] [address] PCP - General Family Medicine 12/20/23 documented as of this encounter
--- OUTSIDE RECORDS SUMMARY | 2025-09-18 11:38 | XMS_ITS | Encounter Summary ---
Author Organization [facility] work ([facility]) Address [address] [place] [address] Care Team Providers Care Curriculum And Assessment Director Name Role Phone Meme Steel MD Primary Care Provider [phone] Pcp, Pcp Primary Care Provider Guadalupe Sosa MD Primary Care Provider [phone] Sena Dominguez Unavailable [phone] Levy Barry MD Primary Care Provider [phone] Source Comments The information that you have received may contain highly confidential and/or federally protected health information. This information has been disclosed to you from records protected by [facility]. The law prohibits you from [...] please contact the sender immediately.[facility] ([facility]) Encounter Details Date Type Department Care Team (Late st Contact Info) Description 01/13/2006 Historical Note [facility] [email or web address] System Devyn Vásquez MD [address] [place] [address] [phone] Social History Tobacco Use Types Packs/Day Years Used Date Smoking Tobacco: Never Assessed Comments Unknown Sex and Gender Information Value Date Recorded Sex Assigned at Not on file Legal Sex Female 1:04 AM EDT Gender Identity Not on file Sexual Orientation Not on file documented as of this encounter Plan of Treatment Upcoming Encounters Date Type Department Care Team ([facility] st Contact Info) Description 10/10/2025 10:00 AM EST Office Visit LEATHA CARRILLO - [facility] 2315 [facility] [address]30 [place] [phone] Brenda Clay MD 2315 [facility] [address] [place] [phone] 04/15/2026 10:00 AM EDT Office Visit [facility]HA [facility] at [facility] + [facility] 4247 [facility] 105 [place] [phone] Sena Dominguez PA 4247 [facility] [place] [address] documented as of this encounter Visit Diagnoses Not on filedocumented in this encounter Care Teams Curriculum And Assessment Director Relationship Specialty Start Date End Date Meme Steel MD [address] [place] [address] 105 [place] [address] PCP - General Pediatrics 06/05/18 04/25/22 No Pcp, Pcp PCP - General 06/08/22 07/19/22 Guadalupe Mcbride MD PCP - General Family Medicine 07/20/22 11/01/23 Sena Dominguez PA [address] [place] [address] [place] [address] PCP - BRADY Physician Poultry Inseminator 11/02/23 Levy Barry MD [address] [place] [address] [place] [address] PCP - General Family Medicine 12/20/23 documented as of this encounter
--- OUTSIDE RECORDS SUMMARY | 2025-09-18 11:38 | XMS_ITS | Encounter Summary ---
Author Organization [facility] work ([facility]) Address [address] [place] [address] Care Team Providers Care Portable Machine Cutter Name Role Phone Meme Steel MD Primary Care Provider [phone] Pcp, Pcp Primary Care Provider Guadalupe Sosa MD Primary Care Provider [phone] Sena Dominguez Unavailable [phone] Levy Barry MD Primary Care Provider [...] contact the sender immediately.[facility] ([facility]) Encounter Details Date Type Department Care Team (Late st Contact Info) Description 05/22/2012 Historical Note [facility] [employer] System Devyn Vásquez MD [address] [place] [address] [phone] Social History Tobacco Use Types Packs/Day Years [...] CARRILLO - [facility] 2315 [facility] [address] [place] [phone] Brenda Clay MD 2315 [facility] [address] [place] [phone] 04/15/2026 10:00 AM EDT Office Visit [facility]HA [facility] at [facility] + [facility] 4247 [facility] [address] [place] [phone] Sena Dominguez PA [address] [facility] [place] [address] documented as of this encounter Visit Diagnoses Not on filedocumented in this encounter Care Teams Portable Machine Cutter Relationship Specialty Start Date End Date Meme Steel MD [address] [place] [address] 105 [place] [address] PCP - General Pediatrics 06/05/18 04/25/22 No Pcp, Pcp PCP - General 06/08/22 07/19/22 Guadalupe Mcbride MD PCP - General Family Medicine 07/20/22 11/01/23 Sena Dominguez PA [address] [place] [address] [place] [address] PCP - BRADY Physician Signs And Displays Salesperson 11/02/23 Levy Barry MD [address] [place] [address] [place] [address] PCP - General Family Medicine 12/20/23 documented as of this encounter
--- OUTSIDE RECORDS SUMMARY | 2025-09-18 11:38 | XMS_ITS | Encounter Summary ---
Author Organization [facility] work ([facility]) Address [address] [place] [address] Care Team Providers Care Mixed Livestock Farm Worker Name Role Phone Meme Steel MD Primary Care Provider [phone] Pcp, Pcp Primary Care Provider Guadalupe Sosa MD Primary Care Provider [phone] Sena Dominguez Unavailable [phone] Levy Barry MD Primary Care Provider [phone] Source Comments The information that you have received may contain highly confidential and/or federally protected health information. This information has been disclosed to you from records protected by [facility]. The law prohibits you from [...] the sender immediately.[facility] ([facility]) Encounter Details Date Type Department Care Team (Late st Contact Info) Description 11/04/2005 Historical Note [facility] [employer] System Devyn Vásquez MD [address] [place] [address] [phone] Social History Tobacco Use Types Packs/Day Years Used Date Smoking Tobacco: Never Assessed Comments Unknown Sex and Gender Information Value Date Recorded Sex Assigned at Not on file Legal Sex Female 1:04 AM EDT Gender Identity Not on file Sexual Orientation Not on file documented as of this encounter Plan of Treatment Upcoming Encounters Date Type Department Care Team ([facility] st Contact Info) Description 10/10/2025 10:00 AM EST Office Visit LEATHA CARRILLO - [facility] at [facility] 23[address] [facility] [address] [place] [phone] Brenda Clay MD 2315 [facility] [address] [place] [phone] 04/15/2026 10:00 AM EDT Office Visit [facility] 4247 [facility] 105 [place] [phone] Sena Dominguez PA 4247 [facility] [place] [address] documented as of this encounter Visit Diagnoses Not on filedocumented in this encounter Care Teams Mixed Livestock Farm Worker Relationship Specialty Start Date End Date Meme Steel MD [address] [place] [address] 105 [place] [address] PCP - General Pediatrics 06/05/18 04/25/22 No Pcp, Pcp PCP - General 06/08/22 07/19/22 Guadalupe Mcbride MD PCP - General Family Medicine 07/20/22 11/01/23 Sena Dominguez PA [address] [place] [address] [place] [address] PCP - BRADY Physician Licensed Nurse Practitioner 11/02/23 Levy Barry MD [address] [place] [address] [place] [address] PCP - General Family Medicine 12/20/23 documented as of this encounter
--- OUTSIDE RECORDS SUMMARY | 2025-09-18 11:38 | XMS_ITS | Encounter Summary ---
Author Organization [facility] work ([facility]) Address [address] [facility] [address] [place] [address] Care Team Providers Care Dinkey Brakeman Name Role Phone Meme Steel MD Primary Care Provider [phone] Pcp, Pcp Primary Care Provider Guadalupe Sosa MD Primary Care Provider [phone] Sena Dominguez Unavailable [phone] Levy Barry MD Primary Care Provider [phone] Source Comments The information that you have received may contain highly confidential and/or federally protected health information. This information has been disclosed to you from records protected by [facility]. The law prohibits you from making [...] please contact the sender immediately.[facility] ([facility]) Encounter Details Date Type Department Care Team (Late st Contact Info) Description 02/08/2006 Historical Note [facility] [employer] System Devyn Vásquez MD [address] [place] [address] [phone] Social History Tobacco Use Types Packs/Day Years [...] LEATHA CARRILLO - [facility] 2315 [facility] G30 [place] [phone] Brenda Clay MD 2315 [facility] [address] [place] [phone] 04/15/2026 10:00 AM EDT Office Visit [facility]HA [facility] at [facility] + [facility] 4247 [facility] 105 [place] [phone] Sena Dominguez PA [address] [facility] [place] [address] documented as of this encounter Visit Diagnoses Not on filedocumented in this encounter Care Teams Dinkey Brakeman Relationship Specialty Start Date End Date Meme Steel MD [address] [place] [address] 105 [place] [address] PCP - General Pediatrics 06/05/18 04/25/22 No Pcp, Pcp PCP - General 06/08/22 07/19/22 Guadalupe Mcbride MD PCP - General Family Medicine 07/20/22 11/01/23 Sena Dominguez PA [address] [place] [address] [place] [address] PCP - BRADY Physician Mail Distribution Scheme Examiner 11/02/23 Levy Barry MD [address] [place] [address] [place] [address] PCP - General Family Medicine 12/20/23 documented as of this encounter
--- OUTSIDE RECORDS SUMMARY | 2025-09-18 11:38 | XMS_ITS | Encounter Summary ---
Author Organization [facility] work ([facility]) Address [address] [place] [address] Care Team Providers Care Job Hand Name Role Phone Meme Steel MD Primary Care Provider [phone] Pcp, Pcp Primary Care Provider Guadalupe Sosa MD Primary Care Provider [phone] Sena Dominguez Unavailable [phone] Levy Barry MD Primary Care Provider [phone] Source Comments The information that you have [...] the sender immediately.[facility] ([facility]) Encounter Details Date Type Department Care Team (Late st Contact Info) Description 02/08/2006 Historical Note [facility] [employer] System Devyn Vásquez MD [address] [place] [address] [phone] Social History Tobacco Use Types Packs/Day Years Used Date Smoking Tobacco: Never Assessed Comments Unknown Sex and Gender Information Value Date Recorded Sex Assigned at Not on file Legal Sex Female 1:04 AM EDT Gender Identity Not on file Sexual Orientation Not on file documented as of this encounter Plan of Treatment Upcoming Encounters Date Type Department Care Team ([facility] st Contact Info) Description 10/10/2025 10:00 AM EST Office Visit LEATHA CARRILLO - [facility] 2315 [facility] G[address] [place] [phone] Brenda Clay MD 2315 [facility] [address] [place] [phone] 04/15/2026 10:00 AM EDT Office Visit [facility]HA [facility] at [facility] + [facility] 4247 [facility] 105 [place] [phone] Sena Dominguez PA 4247 [facility] [place] [address] documented as of this encounter Visit Diagnoses Not on filedocumented in this encounter Care Teams Job Hand Relationship Specialty Start Date End Date Meme Steel MD [address] [place] [address] 105 [place] [address] PCP - General Pediatrics 06/05/18 04/25/22 No Pcp, Pcp PCP - General 06/08/22 07/19/22 Guadalupe Mcbride MD PCP - General Family Medicine 07/20/22 11/01/23 Sena Dominguez PA [address] [place] [address] [place] [address] PCP - BRADY Physician Shuttle Van Driver 11/02/23 Levy Barry MD [address] [place] [address] [place] [address] PCP - General Family Medicine 12/20/23 documented as of this encounter
--- OUTSIDE RECORDS SUMMARY | 2025-09-18 11:38 | XMS_ITS | Encounter Summary ---
Author Organization [facility] work ([facility]) Address [address] [place] [address] Care Team Providers Care Shank Carrier Name Role Phone Meme Steel MD Primary Care Provider [phone] Pcp, Pcp Primary Care Provider Guadalupe Sosa MD Primary Care Provider [phone] Sena Dominguez Unavailable [phone] Levy Barry MD Primary Care Provider [phone] Source Comments The information that you have [...] [facility] ([facility]) Encounter Details Date Type Department Care Team (Late st Contact Info) Description 02/09/2006 Historical Note [facility] [employer] System Devyn Vásquez MD [address] [place] [address] [phone] Social History Tobacco Use Types Packs/Day Years Used Date Smoking Tobacco: Never Assessed Comments Unknown Sex and Gender Information Value Date Recorded Sex Assigned at Not on file Legal Sex Female 1:04 AM EDT Gender Identity Not on file Sexual Orientation Not on file documented as of this encounter Plan of Treatment Upcoming Encounters Date Type Department Care Team ([facility] st Contact Info) Description 10/10/2025 10:00 AM EST Office Visit LEATHA CARRILLO - [facility] 2315 [facility] G[address] [place] [phone] Brenda Clay MD 2315 [facility] [address] [place] [phone] 04/15/2026 10:00 AM EDT Office Visit LEATHA Primary [facility] at [facility] + [facility] 4247 [facility] 105 [place] [phone] Sena Dominguez PA 4247 [facility] [place] [address] documented as of this encounter Visit Diagnoses Not on filedocumented in this encounter Care Teams Shank Carrier Relationship Specialty Start Date End Date Meme Steel MD [address] [place] [address] 105 [place] [address] PCP - General Pediatrics 06/05/18 04/25/22 No Pcp, Pcp PCP - General 06/08/22 07/19/22 Guadalupe Mcbride MD PCP - General Family Medicine 07/20/22 11/01/23 Sena Dominguez PA [address] [place] [address] [place] [address] PCP - BRADY Physician City Jailer 11/02/23 Levy Barry MD [address] [place] [address] [place] [address] PCP - General Family Medicine 12/20/23 documented as of this encounter
--- OUTSIDE RECORDS SUMMARY | 2025-09-18 11:38 | XMS_ITS | Encounter Summary ---
Author Organization [facility] work ([facility]) Address [address] [facility] [address] [place] [address] Care Team Providers Care Lie Detector Operator Name Role Phone Meme Steel MD Primary Care Provider No Pcp, Pcp Primary Care Provider Guadalupe Sosa MD Primary Care Provider [phone] Sena Dominguez Unavailable [phone] Levy Barry MD Primary Care Provider [phone] Source Comments The information that you have received may contain highly confidential and/or federally protected health information. This information has been disclosed to you from records protected by [facility]. The law prohibits you from making [...] please contact the sender immediately.[facility] ([facility]) Encounter Details Date Type Department Care Team (Late st Contact Info) Description 09/10/2012 Historical Note [facility] [employer] System Devyn Vásquez MD [address] [place] [address] [phone] Social History Tobacco Use Types Packs/Day Years Used Date Smoking Tobacco: Never Assessed Comments Unknown Sex and Gender Information Value Date Recorded Sex Assigned at Not on file Legal Sex Female 1:04 AM EDT Gender Identity Not on file Sexual Orientation Not on file documented as of this encounter Plan of Treatment Upcoming Encounters Date Type Department Care Team ([facility] st Contact Info) Description 10/10/2025 10:00 AM EST Office Visit LEATHA CARRILLO - [facility] 2315 [facility] G30 [place] [phone] Brenda Clay MD 2315 [facility] [address] [place] [phone] 04/15/2026 10:00 AM EDT Office Visit [facility]HA [facility] at [facility] + [facility] 4247 [facility] 105 [place] [phone] Sena Dominguez PA 4247 [facility] [place] [address] documented as of this encounter Visit Diagnoses Not on filedocumented in this encounter Care Teams Lie Detector Operator Relationship Specialty Start Date End Date Meme Steel MD [address] [place] [address] 105 [place] [address] PCP - General Pediatrics 06/05/18 04/25/22 No Pcp, Pcp PCP - General 06/08/22 07/19/22 Guadalupe Mcbride MD PCP - General Family Medicine 07/20/22 11/01/23 Sena Dominguez PA [address] [place] [address] [place] [address] PCP - BRADY Physician Press Tender Incendiary Grenade 11/02/23 Levy Barry MD [address] [place] [address] [place] [address] PCP - General Family Medicine 12/20/23 documented as of this encounter
--- OUTSIDE RECORDS SUMMARY | 2025-09-18 11:38 | XMS_ITS | Encounter Summary ---
Author Organization [facility] work ([facility]) Address [address] [facility] [address] [place] [address] Care Team Providers Care Data Reviewer Name Role Phone Meme Steel MD Primary Care Provider [phone] Pcp, Pcp Primary Care Provider Guadalupe Sosa MD Primary Care Provider [phone] Sena Dominguez Unavailable [phone] Levy Barry MD Primary Care Provider [phone] Source Comments The information that you have [...] sender immediately.[facility] ([facility]) Encounter Details Date Type Department Care Team (Late st Contact Info) Description 02/08/2006 Historical Note [facility] [employer] System Devyn Vásquez MD [address] [place] [address] [phone] Social History Tobacco Use Types Packs/Day Years [...] CARRILLO - [facility] 2315 [facility] G30 [place] [phone] Brenda Clay MD 2315 [facility] [address] [place] [phone] 04/15/2026 10:00 AM EDT Office Visit LEATHA Primary [facility] at [facility] + [facility] 4247 [facility] 105 [place] [phone] Sena Dominguez PA 4247 [facility] [place] [address] documented as of this encounter Visit Diagnoses Not on filedocumented in this encounter Care Teams Data Reviewer Relationship Specialty Start Date End Date Meme Steel MD [address] [place] [address] 105 [place] [address] PCP - General Pediatrics 06/05/18 04/25/22 No Pcp, Pcp PCP - General 06/08/22 07/19/22 Guadalupe Mcbride MD PCP - General Family Medicine 07/20/22 11/01/23 Sena Dominguez PA [address] [place] [address] [place] [address] PCP - BRADY Physician Electronics Commodity Manager 11/02/23 Levy Barry MD [address] [place] [address] [place] [address] PCP - General Family Medicine 12/20/23 documented as of this encounter
--- OUTSIDE RECORDS SUMMARY | 2025-09-18 11:38 | XMS_ITS | Encounter Summary ---
Author Organization [facility] work ([facility]) Address [address] [place] [address] Care Team Providers Care Office Manager Name Role Phone Meme Steel MD Primary Care Provider [phone] Pcp, Pcp Primary Care Provider Guadalupe Sosa MD Primary Care Provider [phone] Sena Dominguez Unavailable [phone] Levy Barry MD Primary Care Provider [phone] Source Comments The information that you have [...] sender immediately.[facility] ([facility]) Encounter Details Date Type Department Care Team (Late st Contact Info) Description 09/10/2012 Historical Note [facility] [employer] [facility] Devyn Vásquez MD [address] [place] [address] [phone] Social History Tobacco Use Types Packs/Day Years [...] LEATHA CARRILLO - [facility] [address] [facility] [address] [place] [phone] Brenda Clay MD 2315 [facility] [address] [place] [phone] 04/15/2026 10:00 AM EDT Office Visit [facility] at [facility] + [facility] [address] [facility] 105 [place] [phone] Sena Dominguez PA [address] [facility] [place] [address] documented as of this encounter Visit Diagnoses Not on filedocumented in this encounter Care Teams Office Manager Relationship Specialty Start Date End Date Meme Steel MD [address] [place] [address] 105 [place] [address] PCP - General Pediatrics 06/05/18 04/25/22 No Pcp, Pcp PCP - General 06/08/22 07/19/22 Guadalupe Mcbride MD PCP - General Family Medicine 07/20/22 11/01/23 Sena Dominguez PA [address] [place] [address] [place] [address] PCP - BRADY Physician Piece Dyeing Machine Tender 11/02/23 Levy Barry MD [address] [place] [address] [place] [address] PCP - General Family Medicine 12/20/23 documented as of this encounter
--- OUTSIDE RECORDS SUMMARY | 2025-09-18 11:38 | XMS_ITS | Encounter Summary ---
Author Organization [facility] work ([facility]) Address [address] [place] [address] Care Team Providers Care Paint Booth Operator Name Role Phone Meme Steel MD Primary Care Provider [phone] Pcp, Pcp Primary Care Provider Guadalupe Sosa MD Primary Care Provider [phone] Sena Dominguez Unavailable Levy Barry MD Primary Care Provider [phone] Source Comments The information that you have [...] error, please contact the sender immediately.[facility] ([facility]) Encounter Details Date Type Department Care Team (Late st Contact Info) Description 05/08/2012 Historical Note [facility] Antenna System Devyn Vásquez MD [address] [place] [address] [phone] Social History Tobacco Use Types Packs/Day Years Used Date Smoking Tobacco: Never Assessed Comments Unknown Sex and Gender Information Value Date Recorded Sex Assigned at Not on file Legal Sex Female 1:04 AM EDT Gender Identity Not on file Sexual Orientation Not on file documented as of this encounter Plan of Treatment Upcoming Encounters Date Type Department Care Team ([facility] st Contact Info) Description 10/10/2025 10:00 AM EST Office Visit LEATHA CARRILLO - [facility] at [facility] [address] [facility] [address] [place] [phone] Brenda Clay MD 2315 [facility] [address] [place] [phone] 04/15/2026 10:00 AM EDT Office Visit [facility]HA [facility] at [facility] + [facility] 4[address] [facility] 105 [place] [phone] Sena Dominguez PA 4[address] [facility] [place] [address] documented as of this encounter Visit Diagnoses Not on filedocumented in this encounter Care Teams Paint Booth Operator Relationship Specialty Start Date End Date Meme Steel MD [address] [place] [address] 105 [place] [address] PCP - General Pediatrics 06/05/18 04/25/22 No Pcp, Pcp PCP - General 06/08/22 07/19/22 Guadalupe Mcbride MD PCP - General Family Medicine 07/20/22 11/01/23 Sena Dominguez PA [address] [place] [address] [place] [address] PCP - BRADY Physician Mortgage Closer 11/02/23 Levy Barry MD [address] [place] [address] [place] [address] PCP - General Family Medicine 12/20/23 documented as of this encounter
--- OUTSIDE RECORDS SUMMARY | 2025-09-18 11:38 | XMS_ITS | Encounter Summary ---
Author Organization [facility] work ([facility]) Address [address] [place] [address] Care Team Providers Care Flattening Press Operator Name Role Phone Meme Steel MD Primary Care Provider [phone] Pcp, Pcp Primary Care Provider Guadalupe Sosa MD Primary Care Provider [phone] Sena Dominguez Unavailable [phone] Levy Barry MD Primary Care Provider [phone] Source Comments The information that you have received may contain highly confidential and/or federally protected health information. This information has been disclosed to you from records protected by [facility]. The law prohibits you from making [...] please contact the sender immediately.[facility] ([facility]) Encounter Details Date Type Department Care Team (Late st Contact Info) Description 02/08/2006 Historical Note [facility] [employer] System Devyn Vásquez MD [address] [place] [address] [phone] Social History Tobacco Use Types Packs/Day Years [...] CARRILLO - [facility] at [facility] [address] [facility] [address] [place] [phone] Brenda Clay MD 2315 [facility] [address] [place] [phone] 04/15/2026 10:00 AM EDT Office Visit LEATHA Primary Care at [facility] + [facility] [address] [facility] 105 [place] [phone] Sena Dominguez PA [address] [facility] [place] [address] documented as of this encounter Visit Diagnoses Not on filedocumented in this encounter Care Teams Flattening Press Operator Relationship Specialty Start Date End Date Meme Steel MD [address] [place] [address] 105 [place] [address] PCP - General Pediatrics 06/05/18 04/25/22 No Pcp, Pcp PCP - General 06/08/22 07/19/22 Guadalupe Mcbride MD PCP - General Family Medicine 07/20/22 11/01/23 Sena Dominguez PA [address] [place] [address] [place] [address] PCP - BRADY Physician Pinking Sewing Machine Operator 11/02/23 Levy Barry MD [address] [place] [address] [place] [address] PCP - General Family Medicine 12/20/23 documented as of this encounter
--- OUTSIDE RECORDS SUMMARY | 2025-09-18 11:38 | XMS_ITS | Encounter Summary ---
Author Organization [facility] work ([facility]) Address [address] [place] [address] Care Team Providers Care Gear Grinder Name Role Phone Meme Steel MD Primary Care Provider [phone] Pcp, Pcp Primary Care Provider Guadalupe Sosa MD Primary Care Provider [phone] Sena Dominguez Unavailable [phone] Levy Barry MD Primary Care Provider [phone] Source Comments The information that you have [...] please contact the sender immediately.[facility] ([facility]) Encounter Details Date Type Department Care Team (Late st Contact Info) Description 02/08/2006 Historical Note [facility] [employer] System Devyn Vásquez MD [address] [place] [address] [phone] Social History Tobacco Use Types Packs/Day Years Used Date Smoking Tobacco: Never Assessed Comments Unknown Sex and Gender Information Value Date Recorded Sex Assigned at Not on file Legal Sex Female 1:04 AM EDT Gender Identity Not on file Sexual Orientation Not on file documented as of this encounter Plan of Treatment Upcoming Encounters Date Type Department Care Team ([facility] st Contact Info) Description 10/10/2025 10:00 AM EST Office Visit LEATHA CARRILLO - [facility] [address] [facility] [address] [place] [phone] Brenda Clay MD 2315 [facility] [address] [place] [phone] 04/15/2026 10:00 AM EDT Office Visit [facility]HA [facility] at [facility] + [facility] 4247 [facility] 105 [place] [phone] Sena Dominguez PA 4247 [facility] [place] [address] documented as of this encounter Visit Diagnoses Not on filedocumented in this encounter Care Teams Gear Grinder Relationship Specialty Start Date End Date Meme Steel MD [address] [place] [address] 105 [place] [address] PCP - General Pediatrics 06/05/18 04/25/22 No Pcp, Pcp PCP - General 06/08/22 07/19/22 Guadalupe Mcbride MD PCP - General Family Medicine 07/20/22 11/01/23 Sena Dominguez PA [address] [place] [address] [place] [address] PCP - BRADY Physician Automobile Club Membership Sales Agent 11/02/23 Levy Barry MD [address] [place] [address] [place] [address] PCP - General Family Medicine 12/20/23 documented as of this encounter
--- OUTSIDE RECORDS SUMMARY | 2025-09-18 11:38 | XMS_ITS | Encounter Summary ---
Author Organization [facility] work ([facility]) Address [address] [facility] [address] [facility] [address] [place] [address] Care Team Providers Care Manager Ob Name Role Phone Meme Steel MD Primary Care Provider [phone] Pcp, Pcp Primary Care Provider Guadalupe Sosa MD Primary Care Provider [phone] Sena Dominguez Unavailable [phone] Levy Barry MD Primary Care Provider [phone] Source Comments The information that you have [...] error, please contact the sender immediately.[facility] ([facility]) Encounter Details Date Type Department Care Team (Late st Contact Info) Description 05/24/2012 Historical Note [facility] Viyet System Devyn Vásquez MD [address] [place] [address] [phone] Social History Tobacco Use Types Packs/Day Years Used Date Smoking Tobacco: Never Assessed Comments Unknown Sex and Gender Information Value Date Recorded Sex Assigned at Not on file Legal Sex Female 1:04 AM EDT Gender Identity Not on file Sexual Orientation Not on file documented as of this encounter Plan of Treatment Upcoming Encounters Date Type Department Care Team ([facility] st Contact Info) Description 10/10/2025 10:00 AM EST Office Visit LEATHA CARRILLO - [facility] 23[address] [facility] [address] [place] [phone] Brenda Clay MD 2315 [facility] [address] [place] [phone] 04/15/2026 10:00 AM EDT Office Visit [facility]HA [facility] 4247 [facility] 105 [place] [phone] Sena Dominguez PA 4247 [facility] [place] [address] documented as of this encounter Visit Diagnoses Not on filedocumented in this encounter Care Teams Manager Ob Relationship Specialty Start Date End Date Meme Steel MD [address] [place] [address] 105 [place] [address] PCP - General Pediatrics 06/05/18 04/25/22 No Pcp, Pcp PCP - General 06/08/22 07/19/22 Guadalupe Mcbride MD PCP - General Family Medicine 07/20/22 11/01/23 Sena Dominguez PA [address] [place] [address] [place] [address] PCP - BRADY Physician Audio Visual Production Specialist 11/02/23 Levy Barry MD [address] [place] [address] [place] [address] PCP - General Family Medicine 12/20/23 documented as of this encounter
--- OUTSIDE RECORDS SUMMARY | 2025-09-18 11:38 | XMS_ITS | Encounter Summary ---
Author Organization [facility] work ([facility]) Address [address] [facility] [address] [facility] [address] [place] [address] Care Team Providers Care Electrolysis Needle Operator Name Role Phone Meme Steel MD Primary Care Provider [phone] Pcp, Pcp Primary Care Provider Guadalupe Sosa MD Primary Care Provider [phone] Sena Dominguez Unavailable [phone] Levy Barry MD Primary Care Provider [phone] Source Comments The information that you have received may contain highly confidential and/or federally protected health information. This information has been disclosed to you from records protected by [facility]. The law prohibits you from [...] contact the sender immediately.[facility] ([facility]) Encounter Details Date Type Department Care Team (Late st Contact Info) Description 02/08/2006 Historical Note [facility] [employer] System Devyn Vásquez MD [address] [place] [address] [phone] Social History Tobacco Use Types Packs/Day Years Used Date Smoking Tobacco: Never Assessed Comments Unknown Sex and Gender Information Value Date Recorded Sex Assigned at Not on file Legal Sex Female 1:04 AM EDT Gender Identity Not on file Sexual Orientation Not on file documented as of this encounter Plan of Treatment Upcoming Encounters Date Type Department Care Team ([facility] st Contact Info) Description 10/10/2025 10:00 AM EST Office Visit LEATHA CARRILLO - [facility] at [facility] 2315 [facility] [address] [place] [phone] Brenda Clay MD 2315 [facility] [address] [place] [phone] 04/15/2026 10:00 AM EDT Office Visit LEATHA Primary [facility] at [facility] + [facility] 4247 [facility] 105 [place] [phone] Sena Dominguez PA 4247 [facility] [place] [address] documented as of this encounter Visit Diagnoses Not on filedocumented in this encounter Care Teams Electrolysis Needle Operator Relationship Specialty Start Date End Date Meme Steel MD [address] [place] [address] 105 [place] [address] PCP - General Pediatrics 06/05/18 04/25/22 No Pcp, Pcp PCP - General 06/08/22 07/19/22 Guadalupe Mcbride MD PCP - General Family Medicine 07/20/22 11/01/23 Sena Dominguez PA [address] [place] [address] [place] [address] PCP - BRADY Physician Sap Pi Architect 11/02/23 Levy Barry MD [address] [place] [address] [place] [address] PCP - General Family Medicine 12/20/23 documented as of this encounter
--- OUTSIDE RECORDS SUMMARY | 2025-09-18 11:39 | XMS_ITS | Encounter Summary ---
Author Organization [facility] work ([facility]) Address [address] [facility] [place] [address] Care Team Providers Care Beef Selector Name Role Phone Meme Steel MD Primary Care Provider [phone] Pcp, Pcp Primary Care Provider Guadalupe Sosa MD Primary Care Provider [phone] Sena Dominguez Unavailable [phone] Levy Barry MD Primary Care Provider [phone] Source Comments The information that you have [...] the sender immediately.[facility] ([facility]) Encounter Details Date Type Department Care Team (Late st Contact Info) Description 10/18/2005 Historical Note [facility] [employer] System Devyn Vásquez MD [address] [place] [address] [phone] Social History Tobacco Use Types Packs/Day Years [...] - [facility] 2315 [facility] [address]30 [place] [phone] Brenda Clay MD 2315 [facility] [address] [place] [phone] 04/15/2026 10:00 AM EDT Office Visit LEATHA Primary [facility] at [facility] + [facility] [address] [facility] 105 [place] [phone] Sena Dominguez PA 4247 [facility] [place] [address] documented as of this encounter Visit Diagnoses Not on filedocumented in this encounter Care Teams Beef Selector Relationship Specialty Start Date End Date Meme Steel MD [address] [place] [address] 105 [place] [address] PCP - General Pediatrics 06/05/18 04/25/22 No Pcp, Pcp PCP - General 06/08/22 07/19/22 Guadalupe Mcbride MD PCP - General Family Medicine 07/20/22 11/01/23 Sena Dominguez PA [address] [place] [address] [place] [address] PCP - BRADY Physician Picker Feeder 11/02/23 Levy Barry MD [address] [place] [address] [place] [address] PCP - General Family Medicine 12/20/23 documented as of this encounter
--- OUTSIDE RECORDS SUMMARY | 2025-09-18 11:39 | XMS_ITS | Encounter Summary ---
Author Organization [facility] work ([facility]) Address [address] [facility] [address] [place] [address] Care Team Providers Care State Appellate Clerk Name Role Phone Meme Steel MD Primary Care Provider [phone] Pcp, Pcp Primary Care Provider Guadalupe Sosa MD Primary Care Provider [phone] Sena Dominguez Unavailable [phone] Levy Barry MD Primary Care Provider [phone] Source Comments The information that you have [...] please contact the sender immediately.[facility] ([facility]) Encounter Details Date Type Department Care Team (Late st Contact Info) Description 09/29/2011 Historical Note [facility] [employer] System Devyn Vásquez MD [address] [place] [address] [phone] Social History Tobacco Use Types Packs/Day Years [...] LEATHA CARRILLO - [facility] 2315 [facility] [address] [place] [phone] Brenda Clay MD 2315 [facility] [address] [place] [address] 04/15/2026 10:00 AM EDT Office Visit LEATHA Primary [facility] at [facility] + [facility] 4247 [facility] 105 [place] [phone] Sena Dominguez PA 4247 [facility] [place] [address] documented as of this encounter Visit Diagnoses Not on filedocumented in this encounter Care Teams State Appellate Clerk Relationship Specialty Start Date End Date Meme Steel MD [address] [place] [address] 105 [place] [address] PCP - General Pediatrics 06/05/18 04/25/22 No Pcp, Pcp PCP - General 06/08/22 07/19/22 Guadalupe Mcbride MD PCP - General Family Medicine 07/20/22 11/01/23 Sena Dominguez PA [address] [place] [address] [place] [address] PCP - BRADY Physician Construction Millwright 11/02/23 Levy Barry MD [address] [place] [address] [place] [address] PCP - General Family Medicine 12/20/23 documented as of this encounter
--- OUTSIDE RECORDS SUMMARY | 2025-09-18 11:39 | XMS_ITS | Encounter Summary ---
Author Organization [facility] work ([facility]) Address [address] [place] [address] Care Team Providers Care Service Order Dispatcher Name Role Phone Meme Steel MD Primary Care Provider [phone] Pcp, Pcp Primary Care Provider Guadalupe Sosa MD Primary Care Provider [phone] Sena Dominguez Unavailable [phone] Levy Barry MD Primary Care Provider [phone] Source Comments The information that you have [...] contact the sender immediately.[facility] ([facility]) Encounter Details Date Type Department Care Team (Late st Contact Info) Description 11/07/2005 Historical Note [facility] [employer] System Devyn Vásquez MD [address] [place] [address] [phone] Social History Tobacco Use Types Packs/Day Years Used Date Smoking Tobacco: Never Assessed Comments Unknown Sex and Gender Information Value Date Recorded Sex Assigned at Not on file Legal Sex Female 1:04 AM EDT Gender Identity Not on file Sexual Orientation Not on file documented as of this encounter Plan of Treatment Upcoming Encounters Date Type Department Care Team ([facility] st Contact Info) Description 10/10/2025 10:00 AM EST Office Visit LEATHA CARRILLO - [facility] 2315 [facility] G30 [place] [phone] Brenda Clay MD 2315 [facility] [address] [place] [phone] 04/15/2026 10:00 AM EDT Office Visit LE[facility]HA [facility] at [facility] 4247 [facility] 105 [place] [phone] Sena Dominguez PA 4247 [facility] [place] [address] documented as of this encounter Visit Diagnoses Not on filedocumented in this encounter Care Teams Service Order Dispatcher Relationship Specialty Start Date End Date Meme Steel MD [address] [place] [address] 105 [place] [address] PCP - General Pediatrics 06/05/18 04/25/22 No Pcp, Pcp PCP - General 06/08/22 07/19/22 Guadalupe Mcbride MD PCP - General Family Medicine 07/20/22 11/01/23 Sena Dominguez PA [address] [place] [address] [place] [address] PCP - BRADY Physician Devil Tender 11/02/23 Levy Barry MD [address] [place] [address] [place] [address] PCP - General Family Medicine 12/20/23 documented as of this encounter
--- OUTSIDE RECORDS SUMMARY | 2025-09-18 11:39 | XMS_ITS | Encounter Summary ---
Author Organization [facility] work ([facility]) Address [address] [place] [address] Care Team Providers Care Network Administrator Name Role Phone Meme Steel MD Primary Care Provider [phone] Pcp, Pcp Primary Care Provider Guadalupe Sosa MD Primary Care Provider [phone] Sena Dominguez Unavailable [phone] Levy Barry MD Primary Care Provider [phone] Source Comments The information that you have received may contain highly confidential and/or federally protected health information. This information has been disclosed to you from records protected by [facility]. The law prohibits you from making any [...] the sender immediately.[facility] ([facility]) Encounter Details Date Type Department Care Team (Late st Contact Info) Description 11/07/2005 Historical Note [facility] [employer] System Devyn Vásquez MD [address] [place] [address] [phone] Social History Tobacco Use Types Packs/Day Years [...] - [facility] at [facility] 2315 [facility] [address] [place] [phone] Brenda Clay MD 2315 [facility] [address] [place] [address] 04/15/2026 10:00 AM EDT Office Visit LE[facility]HA [facility] at [facility] + [facility] 4247 [facility] 105 [place] [phone] Sena Dominguez PA 4247 [facility] [place] [address] documented as of this encounter Visit Diagnoses Not on filedocumented in this encounter Care Teams Network Administrator Relationship Specialty Start Date End Date Meme Steel MD [address] [place] [address] 105 [place] [address] PCP - General Pediatrics 06/05/18 04/25/22 No Pcp, Pcp PCP - General 06/08/22 07/19/22 Guadalupe Mcbride MD PCP - General Family Medicine 07/20/22 11/01/23 Sena Dominguez PA [address] [place] [address] [place] [address] PCP - BRADY Physician Revenue Cycle Administrator 11/02/23 Levy Barry MD [address] [place] [address] [place] [address] PCP - General Family Medicine 12/20/23 documented as of this encounter
--- OUTSIDE RECORDS SUMMARY | 2025-09-18 11:39 | XMS_ITS | Encounter Summary ---
Author Organization [facility] work ([facility]) Address [address] [place] [address] Care Team Providers Care Production Supply Equipment Tender Name Role Phone Meme Steel MD Primary Care Provider [phone] Pcp, Pcp Primary Care Provider Guadalupe Sosa MD Primary Care Provider [phone] Sena Dominguez Unavailable Levy Barry MD Primary Care Provider [phone] Source Comments The information that you have received may contain highly confidential and/or federally protected health information. This information has been disclosed to you from records protected by [facility]. The law prohibits you from [...] error, please contact the sender immediately.[facility] ([facility]) Encounter Details Date Type Department Care Team (Late st Contact Info) Description 11/25/2010 Historical Note [facility] Smartsheet System Devyn Vásquez MD [address] [place] [address] [phone] Social History Tobacco Use Types Packs/Day Years Used Date Smoking Tobacco: Never Assessed Comments Unknown Sex and Gender Information Value Date Recorded Sex Assigned at Not on file Legal Sex Female 1:04 AM EDT Gender Identity Not on file Sexual Orientation Not on file documented as of this encounter Plan of Treatment Upcoming Encounters Date Type Department Care Team ([facility] st Contact Info) Description 10/10/2025 10:00 AM EST Office Visit LEATHA CARRILLO - [facility] [address] [facility] [address] [place] [phone] Brenda Clay MD 2315 [facility] [address] [place] [phone] 04/15/2026 10:00 AM EDT Office Visit [facility]HA [facility] at [facility] + [facility] [address] [facility] [address] [place] [phone] Sena Dominguez PA 4247 [facility] [place] [address] documented as of this encounter Visit Diagnoses Not on filedocumented in this encounter Care Teams Production Supply Equipment Tender Relationship Specialty Start Date End Date Meme Steel MD [address] [place] [address] 105 [place] [address] PCP - General Pediatrics 06/05/18 04/25/22 No Pcp, Pcp PCP - General 06/08/22 07/19/22 Guadalupe Mcbride MD PCP - General Family Medicine 07/20/22 11/01/23 Sena Dominguez PA [address] [place] [address] [place] [address] PCP - BRADY Physician Bioinformatics Computer Scientist 11/02/23 Levy Barry MD [address] [place] [address] [place] [address] PCP - General Family Medicine 12/20/23 documented as of this encounter
--- OUTSIDE RECORDS SUMMARY | 2025-09-18 11:39 | XMS_ITS | Encounter Summary ---
Author Organization [facility] work ([facility]) Address [address] [place] [address] Care Team Providers Care Power Transformer Repairer Name Role Phone Meme Steel MD Primary Care Provider No Pcp, Pcp Primary Care Provider Guadalupe Sosa MD Primary Care Provider [phone] Sena Dominguez Unavailable [phone] Levy Barry MD Primary Care Provider [phone] Source Comments The information that you have received may contain highly confidential and/or federally protected health information. This information has been disclosed to you from records protected by [facility]. The law prohibits you from making any [...] the sender immediately.[facility] ([facility]) Encounter Details Date Type Department Care Team (Late st Contact Info) Description 11/28/2005 Historical Note [facility] Spot [employer] System Devyn Vásquez MD [address] [place] [address] [phone] Social History Tobacco Use Types Packs/Day Years Used Date Smoking Tobacco: Never Assessed Comments Unknown Sex and Gender Information Value Date Recorded Sex Assigned at Not on file Legal Sex Female 1:04 AM EDT Gender Identity Not on file Sexual Orientation Not on file documented as of this encounter Plan of Treatment Upcoming Encounters Date Type Department Care Team ([facility] st Contact Info) Description 10/10/2025 10:00 AM EST Office Visit LEATHA CARRILLO - [facility] [address] [facility] [address] [place] [phone] Brenda Clay MD 2315 [facility] [address] [place] [phone] 04/15/2026 10:00 AM EDT Office Visit [facility]HA [facility] at [facility] + [facility] 4247 [facility] [address] [place] [phone] Sena Dominguez PA 4247 [facility] [place] [address] documented as of this encounter Visit Diagnoses Not on filedocumented in this encounter Care Teams Power Transformer Repairer Relationship Specialty Start Date End Date Meme Steel MD [address] [place] [address] 105 [place] [address] PCP - General Pediatrics 06/05/18 04/25/22 No Pcp, Pcp PCP - General 06/08/22 07/19/22 Guadalupe Mcbride MD PCP - General Family Medicine 07/20/22 11/01/23 Sena Dominguez PA [address] [place] [address] [place] [address] PCP - BRADY Physician Business Unit Controller 11/02/23 Levy Barry MD [address] [place] [address] [place] [address] PCP - General Family Medicine 12/20/23 documented as of this encounter
--- OUTSIDE RECORDS SUMMARY | 2025-09-18 11:39 | XMS_ITS | Encounter Summary ---
Author Organization [facility] work ([facility]) Address [address] [place] [address] Care Team Providers Care Instrument Person Name Role Phone Meme Steel MD Primary Care Provider [phone] Pcp, Pcp Primary Care Provider Guadalupe Sosa MD Primary Care Provider [phone] Sena Dominguez Unavailable [phone] Levy Barry MD Primary Care Provider [phone] Source Comments The information that you have received may contain highly confidential and/or federally protected health information. This information has been disclosed to you from records protected by [facility]. The law prohibits you from [...] the sender immediately.[facility] ([facility]) Encounter Details Date Type Department Care Team (Late st Contact Info) Description 11/28/2005 Historical Note [facility] Oscar Tech System Devyn Vásquez MD [address] [place] [address] [phone] Social History Tobacco Use Types Packs/Day Years [...] - Located [facility] [address] [place] [address] [place] [phone] Brenda Clay MD 2315 [facility] [address] [place] [address] 04/15/2026 10:00 AM EDT Office Visit LEATHA [facility] at [facility] + [facility] 4[address] [facility] [address] [place] [phone] Sena Dominguez PA [address] [facility] [place] [address] documented as of this encounter Visit Diagnoses Not on filedocumented in this encounter Care Teams Instrument Person Relationship Specialty Start Date End Date Meme Steel MD [address] [place] [address] 105 [place] [address] PCP - General Pediatrics 06/05/18 04/25/22 No Pcp, Pcp PCP - General 06/08/22 07/19/22 Guadalupe Mcbride MD PCP - General Family Medicine 07/20/22 11/01/23 Sena Dominguez PA [address] [place] [address] [place] [address] PCP - BRADY Physician Hourly Team Members 11/02/23 Levy Barry MD [address] [place] [address] [place] [address] PCP - General Family Medicine 12/20/23 documented as of this encounter
--- OUTSIDE RECORDS SUMMARY | 2025-09-18 11:39 | XMS_ITS | Encounter Summary ---
Author Organization [facility] work ([facility]) Address [address] [place] [address] Care Team Providers Care Interface Designer Name Role Phone Meme Steel MD Primary Care Provider [phone] Pcp, Pcp Primary Care Provider Guadalupe Sosa MD Primary Care Provider [phone] Sena Dominguez Unavailable [phone] Levy Barry MD Primary Care Provider [...] sender immediately.[facility] ([facility]) Encounter Details Date Type Department Care Team (Late st Contact Info) Description 04/15/2011 Historical Note [facility] Neurologix System Devyn Vásquez MD [address] [place] [address] [phone] Social History Tobacco Use Types Packs/Day Years Used Date Smoking Tobacco: Never Assessed Comments Unknown Sex and Gender Information Value Date Recorded Sex Assigned at Not on file Legal Sex Female 1:04 AM EDT Gender Identity Not on file Sexual Orientation Not on file documented as of this encounter Plan of Treatment Upcoming Encounters Date Type Department Care Team ([facility] st Contact Info) Description 10/10/2025 10:00 AM EST Office Visit LEATHA CARRILLO - [facility] at [facility] 23[address] [facility] [address] [place] [phone] Brenda Clay MD 2315 [facility] [address] [place] [phone] 04/15/2026 10:00 AM EDT Office Visit LEATHA [facility] at [facility] + [facility] [address] [facility] [address] [place] [phone] Sena Dominguez PA 4247 [facility] [place] [address] documented as of this encounter Visit Diagnoses Not on filedocumented in this encounter Care Teams Interface Designer Relationship Specialty Start Date End Date Meme Steel MD [address] [place] [address] 105 [place] [address] PCP - General Pediatrics 06/05/18 04/25/22 No Pcp, Pcp PCP - General 06/08/22 07/19/22 Guadalupe Mcbride MD PCP - General Family Medicine 07/20/22 11/01/23 Sena Dominguez PA [address] [place] [address] [place] [address] PCP - BRADY Physician Ceramic Research Engineer 11/02/23 Levy Barry MD [address] [place] [address] [place] [address] PCP - General Family Medicine 12/20/23 documented as of this encounter
--- OUTSIDE RECORDS SUMMARY | 2025-09-18 11:39 | XMS_ITS | Encounter Summary ---
Author Organization [facility] work ([facility]) Address [address] [place] [address] Care Team Providers Care Hydrology Teacher Name Role Phone Meme Steel MD Primary Care Provider [phone] Pcp, Pcp Primary Care Provider Guadalupe Sosa MD Primary Care Provider [phone] Sena Dominguez Unavailable [phone] Levy Barry MD Primary Care Provider [phone] Source Comments The information that you have received may contain highly confidential and/or federally protected health information. This information has been disclosed to you from records protected by [facility]. The law prohibits you from making any [...] contact the sender immediately.[facility] ([facility]) Encounter Details Date Type Department Care Team (Late st Contact Info) Description 09/22/2011 Historical Note [facility] SOMA [employer] System Devyn Vásquez MD [address] [place] [address] [phone] Social History Tobacco Use Types Packs/Day Years Used Date Smoking Tobacco: Never Assessed Comments Unknown Sex and Gender Information Value Date Recorded Sex Assigned at Not on file Legal Sex Female 1:04 AM EDT Gender Identity Not on file Sexual Orientation Not on file documented as of this encounter Plan of Treatment Upcoming Encounters Date Type Department Care Team ([facility] st Contact Info) Description 10/10/2025 10:00 AM EST Office Visit LEATHA CARRILLO - [facility] 23[address] [facility] [address] [place] [phone] Brenda Clay MD 2315 [facility] [address] [place] [phone] 04/15/2026 10:00 AM EDT Office Visit [facility]HA [facility] at [facility] + [facility] 4247 [facility] 105 [place] [phone] Sena Dominguez PA 4247 [facility] [place] [address] documented as of this encounter Visit Diagnoses Not on filedocumented in this encounter Care Teams Hydrology Teacher Relationship Specialty Start Date End Date Meme Steel MD [address] [place] [address] 105 [place] [address] PCP - General Pediatrics 06/05/18 04/25/22 No Pcp, Pcp PCP - General 06/08/22 07/19/22 Guadalupe Mcbride MD PCP - General Family Medicine 07/20/22 11/01/23 Sena Dominguez PA [address] [place] [address] [place] [address] PCP - BRADY Physician Associate Engineer 11/02/23 Levy Barry MD [address] [place] [address] [place] [address] PCP - General Family Medicine 12/20/23 documented as of this encounter
--- OUTSIDE RECORDS SUMMARY | 2025-09-18 11:39 | XMS_ITS | Encounter Summary ---
Author Organization [facility] work ([facility]) Address [address] [place] [address] Care Team Providers Care Medication Technician Name Role Phone Meme Steel MD Primary Care Provider [phone] Pcp, Pcp Primary Care Provider Guadalupe Sosa MD Primary Care Provider [phone] Sena Dominguez Unavailable [phone] Levy Barry MD Primary Care Provider [phone] Source Comments The information that you have received may contain highly confidential and/or federally protected health information. This information has been disclosed to you from records protected by [facility]. The law prohibits you from making any [...] please contact the sender immediately.[facility] ([facility]) Encounter Details Date Type Department Care Team (Late st Contact Info) Description 01/16/2017 Historical Note [facility] Filmaka System Devyn Vásquez MD [address] [place] [address] [phone] Social History Tobacco Use Types Packs/Day Years Used Date Smoking Tobacco: Never Assessed Comments Unknown Sex and Gender Information Value Date Recorded Sex Assigned at Not on file Legal Sex Female 1:04 AM EDT Gender Identity Not on file Sexual Orientation Not on file documented as of this encounter Plan of Treatment Upcoming Encounters Date Type Department Care Team ([facility] st Contact Info) Description 10/10/2025 10:00 AM EST Office Visit LEATHA CARRILLO - [facility] at [facility] [address] [facility] [address] [place] [phone] Brenda Clay MD 2315 [facility] [address] [place] [phone] 04/15/2026 10:00 AM EDT Office Visit LEATHA [facility] at [facility] + [facility] 4247 [facility] 105 [place] [phone] Sena Dominguez PA 4247 [facility] [place] [address] documented as of this encounter Visit Diagnoses Not on filedocumented in this encounter Care Teams Medication Technician Relationship Specialty Start Date End Date Meme Steel MD [address] [place] [address] 105 [place] [address] PCP - General Pediatrics 06/05/18 04/25/22 No Pcp, Pcp PCP - General 06/08/22 07/19/22 Guadalupe Mcbride MD PCP - General Family Medicine 07/20/22 11/01/23 Sena Dominguez PA [address] [place] [address] [place] [address] PCP - BRADY Physician Lead Solutions Architect 11/02/23 Levy Barry MD [address] [place] [address] [place] [address] PCP - General Family Medicine 12/20/23 documented as of this encounter
--- OUTSIDE RECORDS SUMMARY | 2025-09-18 11:39 | XMS_ITS | Encounter Summary ---
Author Organization [facility] work ([facility]) Address [address] [place] [address] Care Team Providers Care Wireless Engineer Name Role Phone Meme Steel MD Primary Care Provider [phone] Pcp, Pcp Primary Care Provider Guadalupe Sosa MD Primary Care Provider [phone] Sena Dominguez Unavailable [phone] Levy Barry MD Primary Care Provider [...] please contact the sender immediately.[facility] ([facility]) Encounter Details Date Type Department Care Team (Late st Contact Info) Description 01/16/2017 Historical Note [facility] Danlan System Devyn Vásquez MD [address] [place] [address] [phone] Social History Tobacco Use Types Packs/Day Years [...] LEATHA CARRILLO - [facility] [address] [facility] G30 [place] [phone] Brenda Clay MD [address] [facility] [address] [place] [phone] 04/15/2026 10:00 AM EDT Office Visit LEATHA Primary Care at [facility] + [facility] 4247 [facility] 105 [place] [phone] Sena Dominguez PA 4247 [facility] [place] [address] documented as of this encounter Visit Diagnoses Not on filedocumented in this encounter Care Teams Wireless Engineer Relationship Specialty Start Date End Date Meme Steel MD [address] [place] [address] 105 [place] [address] PCP - General Pediatrics 06/05/18 04/25/22 No Pcp, Pcp PCP - General 06/08/22 07/19/22 Guadalupe Mcbride MD PCP - General Family Medicine 07/20/22 11/01/23 Sena Dominguez PA [address] [place] [address] [place] [address] PCP - BRADY Physician Pick Up Worker 11/02/23 Levy Barry MD [address] [place] [address] [place] [address] PCP - General Family Medicine 12/20/23 documented as of this encounter
--- OUTSIDE RECORDS SUMMARY | 2025-09-18 11:39 | XMS_ITS | Encounter Summary ---
Author Organization [facility] work ([facility]) Address [address] [place] [address] Care Team Providers Care Cupola Melting Supervisor Name Role Phone Meme Steel MD Primary Care Provider [phone] Pcp, Pcp Primary Care Provider Guadalupe Sosa MD Primary Care Provider [phone] Sena Dominguez Unavailable [phone] Levy Barry MD Primary Care Provider [phone] Source Comments The information that you have [...] please contact the sender immediately.[facility] ([facility]) Encounter Details Date Type Department Care Team (Late st Contact Info) Description 09/08/2011 Historical Note [facility] [employer] System Devyn Vásquez MD [address] [place] [address] [phone] Social History Tobacco Use Types Packs/Day Years [...] LEATHA CARRILLO - [facility] 2315 [facility] G[address] [place] [phone] Brenda Clay MD 2315 [facility] [address] [place] [phone] 04/15/2026 10:00 AM EDT Office Visit LEATHA Primary [facility] at [facility] + [facility] 4247 [facility] 105 [place] [phone] Sena Dominguez PA 4247 [facility] [place] [address] documented as of this encounter Visit Diagnoses Not on filedocumented in this encounter Care Teams Cupola Melting Supervisor Relationship Specialty Start Date End Date Meme Steel MD [address] [place] [address] 105 [place] [address] PCP - General Pediatrics 06/05/18 04/25/22 No Pcp, Pcp PCP - General 06/08/22 07/19/22 Guadalupe Mcbride MD PCP - General Family Medicine 07/20/22 11/01/23 Sena Dominguez PA [address] [place] [address] [place] [address] PCP - BRADY Physician Salicylic Acid Blender 11/02/23 Levy Barry MD [address] [place] [address] [place] [address] PCP - General Family Medicine 12/20/23 documented as of this encounter
--- OUTSIDE RECORDS SUMMARY | 2025-09-18 11:39 | XMS_ITS | Encounter Summary ---
Author Organization [facility] work ([facility]) Address [address] [place] [address] Care Team Providers Care Meter Reader Chief Name Role Phone Meme Steel MD Primary Care Provider [phone] No Pcp, Pcp Primary Care Provider Guadalupe Sosa MD Primary Care Provider [phone] Sena Dominguez Unavailable [phone] Levy Barry MD Primary Care Provider [phone] Source Comments The information that you have received may contain highly confidential and/or federally protected health information. This information has been disclosed to you from records protected by [facility]. The law prohibits you [...] sender immediately.[facility] ([facility]) Encounter Details Date Type Department Care Team (Late st Contact Info) Description 03/09/2017 Historical Note [facility] Kofax System Devyn Vásquez MD [address] [place] [address] [phone] Social History Tobacco Use Types Packs/Day Years [...] Visit LEATHA CARRILLO - [facility] 2315 [facility] [address] [place] [phone] Brenda Clay MD 2315 [facility] [address] [place] [phone] 04/15/2026 10:00 AM EDT Office Visit LEATHA [facility] at [facility] + [facility] 4247 [facility] 105 [place] [phone] Sena Dominguez PA 4247 [facility] [place] [address] documented as of this encounter Visit Diagnoses Not on filedocumented in this encounter Care Teams Meter Reader Chief Relationship Specialty Start Date End Date Meme Steel MD [address] [place] [address] 105 [place] [address] PCP - General Pediatrics 06/05/18 04/25/22 No Pcp, Pcp PCP - General 06/08/22 07/19/22 Guadalupe Mcbride MD PCP - General Family Medicine 07/20/22 11/01/23 Sena Dominguez PA [address] [place] [address] [place] [address] PCP - BRADY Physician Plant Clerk 11/02/23 Levy Barry MD [address] [place] [address] [place] [address] PCP - General Family Medicine 12/20/23 documented as of this encounter
--- OUTSIDE RECORDS SUMMARY | 2025-09-18 11:39 | XMS_ITS | Encounter Summary ---
Author Organization [facility] work ([facility]) Address [address] [place] [address] Care Team Providers Care Worship Pastor Name Role Phone Meme Steel MD Primary Care Provider [phone] Pcp, Pcp Primary Care Provider Guadalupe Sosa MD Primary Care Provider [phone] Sena Dominguez Unavailable [phone] Levy Barry MD Primary Care Provider [phone] Source Comments The information that you have received may contain highly confidential and/or federally protected health information. This information has been disclosed to you from records protected by [facility]. The law prohibits you from making [...] Contact Info) Description 11/04/2005 Historical Note [employer] Devyn Vásquez MD [address] [place] [address] [phone] Social History Tobacco Use Types Packs/Day Years [...] CARRILLO - [facility] at [facility] [address] [facility] [address] [place] [phone] Brenda Clay MD 2315 [facility] [address] [place] [phone] 04/15/2026 10:00 AM EDT Office Visit [place] [facility] at [facility] + [facility] 4247 [facility] 105 [place] [phone] Sena Dominguez PA 4247 [facility] [place] [address] documented as of this encounter Visit Diagnoses Not on filedocumented in this encounter Care Teams Worship Pastor Relationship Specialty Start Date End Date Meme Steel MD [address] [place] [address] 105 [place] [address] PCP - General Pediatrics 06/05/18 04/25/22 No Pcp, Pcp PCP - General 06/08/22 07/19/22 Guadalupe Mcbride MD PCP - General Family Medicine 07/20/22 11/01/23 Sena Dominguez PA [address] [place] [address] [place] [address] PCP - BRADY Physician Publication Distributor 11/02/23 Levy Barry MD [address] [place] [address] [place] [address] PCP - General Family Medicine 12/20/23 documented as of this encounter
--- OUTSIDE RECORDS SUMMARY | 2025-09-18 11:39 | XMS_ITS | Encounter Summary ---
Author Organization [facility] work ([facility]) Address [address] [place] [address] Care Team Providers Care Telegrapher Agent Name Role Phone Meme Steel MD Primary Care Provider [phone] Pcp, Pcp Primary Care Provider Guadalupe Sosa MD Primary Care Provider [phone] Sena Dominguez Unavailable [phone] Levy Barry MD Primary Care Provider [phone] Source Comments The information that you have received may contain highly confidential and/or federally protected health information. This information has been disclosed to you from records protected by [facility]. The law prohibits you from [...] error, please contact the sender immediately.[facility] ([facility]) Encounter Details Date Type Department Care Team (Late st Contact Info) Description 10/31/2017 Historical Note [facility] [employer] Devyn Vásquez MD [address] [place] [address] [phone] Social History Tobacco Use Types Packs/Day Years [...] [facility] [address] [facility] [address]30 [place] [phone] Brenda Clay MD 2315 [facility] [address] [place] [phone] 04/15/2026 10:00 AM EDT Office Visit [facility] Primary [facility] at [facility] + [facility] 4247 [facility] 105 [place] [phone] Sena Dominguez PA [address] [facility] [place] [address] documented as of this encounter Visit Diagnoses Not on filedocumented in this encounter Care Teams Telegrapher Agent Relationship Specialty Start Date End Date Meme Steel MD [address] [place] [address] 105 [place] [address] PCP - General Pediatrics 06/05/18 04/25/22 No Pcp, Pcp PCP - General 06/08/22 07/19/22 Guadalupe Mcbride MD PCP - General Family Medicine 07/20/22 11/01/23 Sena Dominguez PA [address] [place] [address] [place] [address] PCP - BRADY Physician Bus And Rail Operator 11/02/23 Levy Barry MD [address] [place] [address] [place] [address] PCP - General Family Medicine 12/20/23 documented as of this encounter
--- OUTSIDE RECORDS SUMMARY | 2025-09-18 11:39 | XMS_ITS | Encounter Summary ---
Author Organization [facility] work ([facility]) Address [address] [place] [address] Care Team Providers Care Breaker Tender Name Role Phone Meme Steel MD Primary Care Provider No Pcp, Pcp Primary Care Provider Guadalupe Sosa MD Primary Care Provider [phone] Sena Dominguez Unavailable [phone] Levy Barry MD Primary Care Provider [phone] Source Comments The information that you have received may contain highly confidential and/or federally protected health information. This information has been disclosed to you from records protected by [facility]. The law prohibits you from making any [...] contact the sender immediately.[facility] ([facility]) Encounter Details Date Type Department Care Team (Late st Contact Info) Description 01/06/2006 Historical Note [employer] System Devyn Vásquez MD [address] [place] [address] [phone] Social History Tobacco Use Types Packs/Day Years Used Date Smoking Tobacco: Never Assessed Comments Unknown Sex and Gender Information Value Date Recorded Sex Assigned at Not on file Legal Sex Female 1:04 AM EDT Gender Identity Not on file Sexual Orientation Not on file documented as of this encounter Plan of Treatment Upcoming Encounters Date Type Department Care Team ([facility] st Contact Info) Description 10/10/2025 10:00 AM EST Office Visit LE[place]HA CARRILLO - [facility] 2315 [facility] [address] [place] [phone] Brenda Clay MD 2315 [facility] [address] [place] [phone] 04/15/2026 10:00 AM EDT Office Visit [facility] Primary [facility] at [facility] + [facility] 4247 [facility] 105 [place] [phone] Sena Dominguez PA 4247 [facility] [place] [address] documented as of this encounter Visit Diagnoses Not on filedocumented in this encounter Care Teams Breaker Tender Relationship Specialty Start Date End Date Meme Steel MD [address] [place] [address] 105 [place] [address] PCP - General Pediatrics 06/05/18 04/25/22 No Pcp, Pcp PCP - General 06/08/22 07/19/22 Guadalupe Mcbride MD PCP - General Family Medicine 07/20/22 11/01/23 Sena Dominguez PA [address] [place] [address] [place] [address] PCP - BRADY Physician Assistant Commissioner 11/02/23 Levy Barry MD [address] [place] [address] [place] [address] PCP - General Family Medicine 12/20/23 documented as of this encounter
--- OUTSIDE RECORDS SUMMARY | 2025-09-18 11:39 | XMS_ITS | Encounter Summary ---
Author Organization [facility] work ([facility]) Address [address] [address] [place] [address] Care Team Providers Care Elementary Ell Teacher Name Role Phone Meme Steel MD Primary Care Provider [phone] Pcp, Pcp Primary Care Provider Guadalupe Sosa MD Primary Care Provider [phone] Sena Dominguez Unavailable [phone] Levy Barry MD Primary Care Provider [phone] Source Comments The information that you have received may contain highly confidential and/or federally protected health information. This information has been disclosed to you from records protected by [facility]. The law prohibits you from making [...] contact the sender immediately.[facility] ([facility]) Encounter Details Date Type Department Care Team (Late st Contact Info) Description 11/21/2005 Historical Note [facility] [employer] Devyn Vásquez MD [address] [place] [address] [phone] Social History Tobacco Use Types Packs/Day Years Used Date Smoking Tobacco: Never Assessed Comments Unknown Sex and Gender Information Value Date Recorded Sex Assigned at Not on file Legal Sex Female 1:04 AM EDT Gender Identity Not on file Sexual Orientation Not on file documented as of this encounter Plan of Treatment Upcoming Encounters Date Type Department Care Team ([facility] st Contact Info) Description 10/10/2025 10:00 AM EST Office Visit LEATHA CARRILLO - [facility] [address] [facility] [address] [place] [phone] Brenda Clay MD 2315 [facility] [address] [place] [phone] 04/15/2026 10:00 AM EDT Office Visit [facility] Primary [facility] at [facility] + [facility] 4247 [facility] [address] [place] [phone] Sena Dominguez PA 4247 [facility] [place] [address] documented as of this encounter Visit Diagnoses Not on filedocumented in this encounter Care Teams Elementary Ell Teacher Relationship Specialty Start Date End Date Meme Steel MD [address] [place] [address] 105 [place] [address] PCP - General Pediatrics 06/05/18 04/25/22 No Pcp, Pcp PCP - General 06/08/22 07/19/22 Guadalupe Mcbride MD PCP - General Family Medicine 07/20/22 11/01/23 Sena Dominguez PA [address] [place] [address] [place] [address] PCP - BRADY Physician District Service Manager 11/02/23 Levy Barry MD [address] [place] [address] [place] [address] PCP - General Family Medicine 12/20/23 documented as of this encounter
--- OUTSIDE RECORDS SUMMARY | 2025-09-18 11:39 | XMS_ITS | Encounter Summary ---
Author Organization [facility] work ([facility]) Address [address] [facility] [address] [place] [address] Care Team Providers Care Edge Dyer Name Role Phone Meme Steel MD Primary Care Provider [phone] No Pcp, Pcp Primary Care Provider Guadalupe Sosa MD Primary Care Provider [phone] Sena Dominguez Unavailable [phone] Levy Barry MD Primary Care Provider [phone] Source Comments The information that you have received may contain highly confidential and/or federally protected health information. This information has been disclosed to you from records protected by [facility]. The law prohibits you [...] please contact the sender immediately.[facility] ([facility]) Encounter Details Date Type Department Care Team (Late st Contact Info) Description 03/09/2017 Historical Note [facility] [employer] Devyn Vásquez MD [address] [place] [address] [phone] Social History Tobacco Use Types Packs/Day Years [...] [facility] 2315 [facility] G30 [place] [phone] Brenda Clay MD 2315 [facility] [address] [place] [phone] 04/15/2026 10:00 AM EDT Office Visit LEATHA Primary Care at [facility] + [facility] 4247 [facility] 105 [place] [phone] Sena Dominguez PA 4247 [facility] [place] [address] documented as of this encounter Visit Diagnoses Not on filedocumented in this encounter Care Teams Edge Dyer Relationship Specialty Start Date End Date Meme Steel MD [address] [place] [address] 105 [place] [address] PCP - General Pediatrics 06/05/18 04/25/22 No Pcp, Pcp PCP - General 06/08/22 07/19/22 Guadalupe Mcbride MD PCP - General Family Medicine 07/20/22 11/01/23 Sena Dominguez PA [address] [place] [address] [place] [address] PCP - BRADY Physician Mixer Operator Helper Hot Metal 11/02/23 Levy Barry MD [address] [place] [address] [place] [address] PCP - General Family Medicine 12/20/23 documented as of this encounter
--- OUTSIDE RECORDS SUMMARY | 2025-09-18 11:39 | XMS_ITS | Encounter Summary ---
Author Organization [facility] work ([facility]) Address [address] [place] [address] Care Team Providers Care Computer Forensics Investigator Name Role Phone Meme Steel MD Primary Care Provider [phone] Pcp, Pcp Primary Care Provider Guadalupe Sosa MD Primary Care Provider [phone] Snea Dominguez Unavailable [phone] Levy Barry MD Primary Care Provider [phone] Source Comments The information that you have received may contain highly confidential and/or federally protected health information. This information has been disclosed to you from records protected by [facility]. The law prohibits you from making [...] error, please contact the sender immediately.[facility] ([facility]) Encounter Details Date Type Department Care Team (Late st Contact Info) Description 03/09/2017 Historical Note [address] [address] [employer] Devyn Vásquez MD [address] [place] [address] [phone] Social History Tobacco Use Types Packs/Day Years [...] CARRILLO - [facility] 2315 [facility] G30 [place] [phone] Brenda Clay MD 2315 [facility] [address] [place] [phone] 04/15/2026 10:00 AM EDT Office Visit [facility]HA Primary [facility] at [facility] 4247 [facility] 105 [place] [phone] Sena Dominguez PA 4247 [facility] [place] [address] documented as of this encounter Visit Diagnoses Not on filedocumented in this encounter Care Teams Computer Forensics Investigator Relationship Specialty Start Date End Date Meme Steel MD [address] [place] [address] 105 [place] [address] PCP - General Pediatrics 06/05/18 04/25/22 No Pcp, Pcp PCP - General 06/08/22 07/19/22 Guadalupe Mcbride MD PCP - General Family Medicine 07/20/22 11/01/23 Sena Dominguez PA [address] [place] [address] [place] [address] PCP - BRADY Physician Commercial Lease Administrator 11/02/23 Levy Barry MD [address] [place] [address] [place] [address] PCP - General Family Medicine 12/20/23 documented as of this encounter
--- OUTSIDE RECORDS SUMMARY | 2025-09-18 11:39 | XMS_ITS | Encounter Summary ---
Author Organization [facility] work ([facility]) Address [address] [facility] [address] [place] [address] Care Team Providers Care Security Operations Specialist Name Role Phone Meme Steel MD Primary Care Provider [phone] Pcp, Pcp Primary Care Provider Guaadlupe Sosa MD Primary Care Provider [phone] Sena Dominguez Unavailable [phone] Levy Barry MD Primary Care Provider [phone] Source Comments The information that you have [...] contact the sender immediately.[facility] ([facility]) Encounter Details Date Type Department Care Team (Late st Contact Info) Description 11/25/2010 Historical Note [facility] [employer] Devyn Vásquez MD [address] [place] [address] [phone] Social History Tobacco Use Types Packs/Day Years [...] LEATHA CARRILLO - [facility] 2315 [facility] [address] [place] [phone] Brenda Clay MD 2315 [facility] [address] [place] [phone] 04/15/2026 10:00 AM EDT Office Visit LE[facility]HA Primary Care at [facility] + [facility] 4247 [facility] 105 [place] [phone] Sena Dominguez PA 4247 [facility] [place] [address] documented as of this encounter Visit Diagnoses Not on filedocumented in this encounter Care Teams Security Operations Specialist Relationship Specialty Start Date End Date Meme Steel MD [address] [place] [address] 105 [place] [address] PCP - General Pediatrics 06/05/18 04/25/22 No Pcp, Pcp PCP - General 06/08/22 07/19/22 Guadalupe Mcbride MD PCP - General Family Medicine 07/20/22 11/01/23 Sena Dominguez PA [address] [place] [address] [place] [address] PCP - BRADY Physician Fire Marshal Refinery 11/02/23 Levy Barry MD [address] [place] [address] [place] [address] PCP - General Family Medicine 12/20/23 documented as of this encounter
--- OUTSIDE RECORDS SUMMARY | 2025-09-18 11:39 | XMS_ITS | Encounter Summary ---
Author Organization [facility] work ([facility]) Address [address] [place] [address] Care Team Providers Care Account Analyst Name Role Phone Meme Steel MD Primary Care Provider [phone] Pcp, Pcp Primary Care Provider Guadalupe Sosa MD Primary Care Provider [phone] Sena Dominguez Unavailable [phone] Levy Barry MD Primary Care Provider [phone] Source Comments The information that you have received may contain highly confidential and/or federally protected health information. This information has been disclosed to you from records protected by [facility]. The law prohibits you from making any [...] please contact the sender immediately.[facility] ([facility]) Encounter Details Date Type Department Care Team (Late st Contact Info) Description 04/14/2011 Historical Note [facility] Smart [employer]pack System Devyn Vásquez MD [address] [place] [address] [phone] Social History Tobacco Use Types Packs/Day Years [...] Visit LE[place]HA CARRILLO - [facility] 2315 [facility] [address] [place] [phone] Brenda Clay MD 2315 [facility] [address] [place] [phone] 04/15/2026 10:00 AM EDT Office Visit [place] Primary [facility] at [facility] + [facility] 4247 [facility] 105 [place] [phone] Sena Dominguez PA 4247 [facility] [place] [address] documented as of this encounter Visit Diagnoses Not on filedocumented in this encounter Care Teams Account Analyst Relationship Specialty Start Date End Date Meme Steel MD [address] [place] [address] 105 [place] [address] PCP - General Pediatrics 06/05/18 04/25/22 No Pcp, Pcp PCP - General 06/08/22 07/19/22 Guadalupe Mcbride MD PCP - General Family Medicine 07/20/22 11/01/23 Sena Dominguez PA [address] [place] [address] [place] [address] PCP - BRADY Physician Relay Repairer 11/02/23 Levy Barry MD [address] [place] [address] [place] [address] PCP - General Family Medicine 12/20/23 documented as of this encounter
--- OUTSIDE RECORDS SUMMARY | 2025-09-18 11:39 | XMS_ITS | Encounter Summary ---
Author Organization [facility] work ([facility]) Address [address] [place] [address] Care Team Providers Care Skip Loader Name Role Phone Meme Steel MD Primary Care Provider No Pcp, Pcp Primary Care Provider Guadalupe Sosa MD Primary Care Provider [phone] Sena Dominguez Unavailable [phone] Levy Barry MD Primary Care Provider [phone] Source Comments The information that you have received may contain highly confidential and/or federally protected health information. This information has been disclosed to you from records protected by [facility]. The law prohibits you from making [...] error, please contact the sender immediately.[facility] ([facility]) Encounter Details Date Type Department Care Team (Late st Contact Info) Description 04/15/2011 Historical Note [facility] [employer] Devyn Vásquez MD [address] [place] [address] [phone] Social History Tobacco Use Types Packs/Day Years [...] LEATHA CARRILLO - [facility] 2315 [facility] [address] [place] [phone] Brenda Clay MD 2315 [facility] [address] [place] [phone] 04/15/2026 10:00 AM EDT Office Visit LEATHA Primary Care at [facility] + [facility] 4247 [facility] [address] [place] [phone] Sena Dominguez PA 4247 [facility] [place] [address] documented as of this encounter Visit Diagnoses Not on filedocumented in this encounter Care Teams Skip Loader Relationship Specialty Start Date End Date Meme Steel MD [address] [place] [address] 105 [place] [address] PCP - General Pediatrics 06/05/18 04/25/22 No Pcp, Pcp PCP - General 06/08/22 07/19/22 Guadalupe Mcbride MD PCP - General Family Medicine 07/20/22 11/01/23 Sena Dominguez PA [address] [place] [address] [place] [address] PCP - BRADY Physician Technology Infusion Specialist 11/02/23 Levy Barry MD [address] [place] [address] [place] [address] PCP - General Family Medicine 12/20/23 documented as of this encounter
--- OUTSIDE RECORDS SUMMARY | 2025-09-18 11:39 | XMS_ITS | Encounter Summary ---
Author Organization [facility] work ([facility]) Address [address] [place] [address] Care Team Providers Care Collection Card Clerk Name Role Phone Meme Steel MD Primary Care Provider [phone] Pcp, Pcp Primary Care Provider Guadalupe Sosa MD Primary Care Provider [phone] Sena Dominguez Unavailable [phone] Levy Barry MD Primary Care Provider [phone] Source Comments The information that you have [...] please contact the sender immediately.[facility] ([facility]) Encounter Details Date Type Department Care Team (Late st Contact Info) Description 04/12/2011 Historical Note [facility] [employer] System Devyn Vásquez MD [address] [place] [address] [phone] Social History Tobacco Use Types Packs/Day Years [...] LEATHA CARRILLO - [facility] 23[address] [facility] [address] [place] [phone] Brenda Clay MD 2315 [facility] [address] [place] [phone] 04/15/2026 10:00 AM EDT Office Visit LEATHA Primary Care at [facility] + [facility] [address] [facility] 105 [place] [phone] Sena Dominguez PA 4247 [facility] [place] [address] documented as of this encounter Visit Diagnoses Not on filedocumented in this encounter Care Teams Collection Card Clerk Relationship Specialty Start Date End Date Meme Steel MD [address] [place] [address] 105 [place] [address] PCP - General Pediatrics 06/05/18 04/25/22 No Pcp, Pcp PCP - General 06/08/22 07/19/22 Guadalupe Mcbride MD PCP - General Family Medicine 07/20/22 11/01/23 Sena Dominguez PA [address] [place] [address] [place] [address] PCP - BRADY Physician Ferry Pilot 11/02/23 Levy Barry MD [address] [place] [address] [place] [address] PCP - General Family Medicine 12/20/23 documented as of this encounter
--- OUTSIDE RECORDS SUMMARY | 2025-09-18 11:39 | XMS_ITS | Encounter Summary ---
Author Organization [facility] work ([facility]) Address [address] [place] [address] Care Team Providers Care Industrial Maintenance Repairer Helper Name Role Phone Meme Steel MD Primary Care Provider [phone] Pcp, Pcp Primary Care Provider Guadalupe Sosa MD Primary Care Provider [phone] Sena Dominguez Unavailable [phone] Levy Barry MD Primary Care Provider [phone] Source Comments The information that you have [...] please contact the sender immediately.[facility] ([facility]) Encounter Details Date Type Department Care Team (Late st Contact Info) Description 04/12/2011 Historical Note [facility] [employer] System Devyn Vásquez MD [address] [place] [address] [phone] Social History Tobacco Use Types Packs/Day Years [...] LEATHA CARRILLO - [facility] at [facility] [address] [facility] [address] [place] [phone] Brenda Clay MD 2315 [facility] [address] [place] [address] 04/15/2026 10:00 AM EDT Office Visit [facility] + [facility] [address] [facility] 105 [place] [phone] Sena Dominguez PA [address] [facility] [place] [address] documented as of this encounter Visit Diagnoses Not on filedocumented in this encounter Care Teams Industrial Maintenance Repairer Helper Relationship Specialty Start Date End Date Meme Steel MD [address] [place] [address] 105 [place] [address] PCP - General Pediatrics 06/05/18 04/25/22 No Pcp, Pcp PCP - General 06/08/22 07/19/22 Guadalupe Mcbride MD PCP - General Family Medicine 07/20/22 11/01/23 Sena Dominguez PA [address] [place] [address] [place] [address] PCP - BRADY Physician Lead Painter 11/02/23 Levy Barry MD [address] [place] [address] [place] [address] PCP - General Family Medicine 12/20/23 documented as of this encounter
--- OUTSIDE RECORDS SUMMARY | 2025-09-18 11:39 | XMS_ITS | Encounter Summary ---
Author Organization [facility] work ([facility]) Address [address] [place] [address] Care Team Providers Care Transmission Systems Operator Name Role Phone Meme Steel MD Primary Care Provider [phone] Pcp, Pcp Primary Care Provider Guadalupe Sosa MD Primary Care Provider [phone] Sena Dominguez Unavailable [phone] Levy Barry MD Primary Care Provider Source Comments The information that you have received may contain highly confidential and/or federally protected health information. This information has been disclosed to you from records protected by [facility]. The law prohibits you from [...] please contact the sender immediately.[facility] ([facility]) Encounter Details Date Type Department Care Team (Late st Contact Info) Description 05/18/2011 Historical Note [facility] [employer] [facility] Devyn Vásquez MD [address] [place] [address] [phone] Social History Tobacco Use Types Packs/Day Years [...] Visit LEATHA CARRILLO - [facility] at [facility] [address] [facility] [address]30 [place] [phone] Brenda Clay MD 2315 [facility] [address] [place] [phone] 04/15/2026 10:00 AM EDT Office Visit LEATHA [facility] at [facility] + [facility] 4247 [facility] 105 [place] [phone] Sena Dominguez PA 4[address] [facility] [place] [address] documented as of this encounter Visit Diagnoses Not on filedocumented in this encounter Care Teams Transmission Systems Operator Relationship Specialty Start Date End Date Meme Steel MD [address] [place] [address] 105 [place] [address] PCP - General Pediatrics 06/05/18 04/25/22 No Pcp, Pcp PCP - General 06/08/22 07/19/22 Guadalupe Mcbride MD PCP - General Family Medicine 07/20/22 11/01/23 Sena Dominguez PA [address] [place] [address] [place] [address] PCP - BRADY Physician Coil Connector 11/02/23 Levy Barry MD [address] [place] [address] [place] [address] PCP - General Family Medicine 12/20/23 documented as of this encounter
--- OUTSIDE RECORDS SUMMARY | 2025-09-18 11:39 | XMS_ITS | Encounter Summary ---
Author Organization [facility] work ([facility]) Address [address] [place] [address] Care Team Providers Care Dry Chain Puller Name Role Phone Meme Steel MD Primary Care Provider No Pcp, Pcp Primary Care Provider Guadalupe Sosa MD Primary Care Provider [phone] Sena Dominguez Unavailable Levy Barry MD Primary Care Provider [phone] Source Comments The information that you have [...] contact the sender immediately.[facility] ([facility]) Encounter Details Date Type Department Care Team (Late st Contact Info) Description 09/21/2010 Historical Note [facility] [employer] System Devyn Vásquez MD [address] [place] [address] [phone] Social History Tobacco Use Types Packs/Day Years [...] LEATHA CARRILLO - [facility] 23[address] [facility] [address] [place] [phone] Brenda Clay MD 2315 [facility] [address] [place] [address] 04/15/2026 10:00 AM EDT Office Visit LE[facility]HA [facility] at [place] [facility] + [facility] [address] [facility] 105 [place] [phone] Sena Dominguez PA [address] [facility] [place] [address] documented as of this encounter Visit Diagnoses Not on filedocumented in this encounter Care Teams Dry Chain Puller Relationship Specialty Start Date End Date Meme Steel MD [address] [place] [address] 105 [place] [address] PCP - General Pediatrics 06/05/18 04/25/22 No Pcp, Pcp PCP - General 06/08/22 07/19/22 Guadalupe Mcbride MD PCP - General Family Medicine 07/20/22 11/01/23 Sean Dominguez PA [address] [place] [address] [place] [address] PCP - BRADY Physician Drophammer Operator 11/02/23 Levy Barry MD [address] [place] [address] [place] [address] PCP - General Family Medicine 12/20/23 documented as of this encounter
--- OUTSIDE RECORDS SUMMARY | 2025-09-18 11:39 | XMS_ITS | Encounter Summary ---
Author Organization [facility] work ([facility]) Address [address] [place] [address] Care Team Providers Care Aligner Barrel And Receiver Name Role Phone Meme Steel MD Primary Care Provider [phone] Pcp, Pcp Primary Care Provider Guadalupe Sosa MD Primary Care Provider [phone] Sena Dominguez Unavailable [phone] Levy Barry MD Primary Care Provider [phone] Source Comments The information that you have received may contain highly confidential and/or federally protected health information. This information has been disclosed to you from records protected by [facility]. The law prohibits you from making [...] contact the sender immediately.[facility] ([facility]) Encounter Details Date Type Department Care Team (Late st Contact Info) Description 02/16/2012 Historical Note [facility] [employer] System Devyn Vásquez MD [address] [place] [address] [phone] Social History Tobacco Use Types Packs/Day Years [...] [facility] [address] [facility] [address] [place] [phone] Brenda Clay MD 23[address] [facility] [address] [place] [phone] 04/15/2026 10:00 AM EDT Office Visit LEATHA [facility] at [facility] + [facility] 4[address] [facility] 105 [place] [phone] Sena Dominguez PA [address] [facility] [place] [address] documented as of this encounter Visit Diagnoses Not on filedocumented in this encounter Care Teams Aligner Barrel And Receiver Relationship Specialty Start Date End Date Meme Steel MD [address] [place] [address] 105 [place] [address] PCP - General Pediatrics 06/05/18 04/25/22 No Pcp, Pcp PCP - General 06/08/22 07/19/22 Guadalupe Mcbride MD PCP - General Family Medicine 07/20/22 11/01/23 Sena Dominguez PA [address] [place] [address] [place] [address] PCP - BRADY Physician Police Crime Scene Technician 11/02/23 Levy Barry MD [address] [place] [address] [place] [address] PCP - General Family Medicine 12/20/23 documented as of this encounter
--- OUTSIDE RECORDS SUMMARY | 2025-09-18 11:39 | XMS_ITS | Encounter Summary ---
Author Organization [facility] work ([facility]) Address [address] [place] [address] Care Team Providers Care Record Press Tender Name Role Phone Meme Steel MD Primary Care Provider [phone] Pcp, Pcp Primary Care Provider Guadalupe Sosa MD Primary Care Provider [phone] Sena Dominguez Unavailable [phone] Levy Barry MD Primary Care Provider [phone] Source Comments The information that you have received may contain highly confidential and/or federally protected health information. This information has been disclosed to you from records protected by [facility]. The law prohibits you from making [...] contact the sender immediately.[facility] ([facility]) Encounter Details Date Type Department Care Team (Late st Contact Info) Description 02/16/2012 Historical Note [facility] [employer] System Devyn Vásquez MD [address] [place] [address] [phone] Social History Tobacco Use Types Packs/Day Years Used Date Smoking Tobacco: Never Assessed Comments Unknown Sex and Gender Information Value Date Recorded Sex Assigned at Not on file Legal Sex Female 1:04 AM EDT Gender Identity Not on file Sexual Orientation Not on file documented as of this encounter Plan of Treatment Upcoming Encounters Date Type Department Care Team ([facility] st Contact Info) Description 10/10/2025 10:00 AM EST Office Visit LEATHA CARRILLO - [facility] [address] [facility] [address] [place] [phone] Brenda Clay MD 2315 [facility] [address] [place] [phone] 04/15/2026 10:00 AM EDT Office Visit [facility]HA [facility] + [facility] 4247 [facility] 105 [place] [phone] Sena Dominguez PA 4247 [facility] [place] [address] documented as of this encounter Visit Diagnoses Not on filedocumented in this encounter Care Teams Record Press Tender Relationship Specialty Start Date End Date Meme Steel MD [address] [place] [address] 105 [place] [address] PCP - General Pediatrics 06/05/18 04/25/22 No Pcp, Pcp PCP - General 06/08/22 07/19/22 Guadalupe Mcbride MD PCP - General Family Medicine 07/20/22 11/01/23 Sena Dominguez PA [address] [place] [address] [place] [address] PCP - BRADY Physician Underwriting Specialist 11/02/23 Levy Barry MD [address] [place] [address] [place] [address] PCP - General Family Medicine 12/20/23 documented as of this encounter
--- OUTSIDE RECORDS SUMMARY | 2025-09-18 11:39 | XMS_ITS | Encounter Summary ---
Author Organization [facility] work ([facility]) Address [address] [place] [address] Care Team Providers Care Solar Lab Technician Name Role Phone Meme Steel MD Primary Care Provider [phone] Pcp, Pcp Primary Care Provider Guadalupe Sosa MD Primary Care Provider [phone] Sena Dominguez Unavailable [phone] Levy Barry MD Primary Care Provider [phone] Source Comments The information that you have received may contain highly confidential and/or federally protected health information. This information has been disclosed to you from records protected by [facility]. The law prohibits you from making [...] error, please contact the sender immediately.[facility] ([facility]) Encounter Details Date Type Department Care Team (Late st Contact Info) Description 10/18/2005 Historical Note [facility] [employer] System Devyn Vásquez MD [address] [place] [address] [phone] Social History Tobacco Use Types Packs/Day Years Used Date Smoking Tobacco: Never Assessed Comments Unknown Sex and Gender Information Value Date Recorded Sex Assigned at Not on file Legal Sex Female 1:04 AM EDT Gender Identity Not on file Sexual Orientation Not on file documented as of this encounter Plan of Treatment Upcoming Encounters Date Type Department Care Team ([facility] st Contact Info) Description 10/10/2025 10:00 AM EST Office Visit LEATHA CARRILLO - [facility] at [facility] 2315 [facility] G[address] [place] [phone] Brenda Clay MD 2315 [facility] [address] [place] [phone] 04/15/2026 10:00 AM EDT Office Visit LEATHA [facility] at [facility] + [facility] 4247 [facility] 105 [place] [phone] Sena Dominguez PA 4247 [facility] [place] [address] documented as of this encounter Visit Diagnoses Not on filedocumented in this encounter Care Teams Solar Lab Technician Relationship Specialty Start Date End Date Meme Steel MD [address] [place] [address] 105 [place] [address] PCP - General Pediatrics 06/05/18 04/25/22 No Pcp, Pcp PCP - General 06/08/22 07/19/22 Guadalupe Mcbride MD PCP - General Family Medicine 07/20/22 11/01/23 Sena Dominguez PA [address] [place] [address] [place] [address] PCP - BRADY Physician Environmental Studies Department Chair 11/02/23 Levy Barry MD [address] [place] [address] [place] [address] PCP - General Family Medicine 12/20/23 documented as of this encounter
--- OUTSIDE RECORDS SUMMARY | 2025-09-18 11:39 | XMS_ITS | Encounter Summary ---
Author Organization [facility] work ([facility]) Address [address] [place] [address] Care Team Providers Care Manager Report Name Role Phone Meme Steel MD Primary Care Provider [phone] Pcp, Pcp Primary Care Provider Guadalupe Sosa MD Primary Care Provider [phone] Sena Dominguez Unavailable [phone] Levy Barry MD Primary Care Provider [phone] Source Comments The information that you have received may contain highly confidential and/or federally protected health information. This information has been disclosed to you from records protected by [facility]. The law prohibits you from [...] sender immediately.[facility] ([facility]) Encounter Details Date Type Department Care Team (Late st Contact Info) Description 11/03/2005 Historical Note [facility] [employer] System Devyn Vásquez MD [address] [place] [address] [phone] Social History Tobacco Use Types Packs/Day Years [...] Visit LEATHA CARRILLO - [facility] 2315 [facility] [address]30 [place] [phone] Brenda Clay MD 2315 [facility] [address] [place] [phone] 04/15/2026 10:00 AM EDT Office Visit LEATHA [facility] + [facility] 4247 [facility] 105 [place] [phone] Sena Dominguez PA 4247 [facility] [place] [address] documented as of this encounter Visit Diagnoses Not on filedocumented in this encounter Care Teams Manager Report Relationship Specialty Start Date End Date Meme Steel MD [address] [place] [address] 105 [place] [address] PCP - General Pediatrics 06/05/18 04/25/22 No Pcp, Pcp PCP - General 06/08/22 07/19/22 Guadalupe Mcbride MD PCP - General Family Medicine 07/20/22 11/01/23 Sena Dominguez PA [address] [place] [address] [place] [address] PCP - BRADY Physician Pre K Teacher 11/02/23 Levy Barry MD [address] [place] [address] [place] [address] PCP - General Family Medicine 12/20/23 documented as of this encounter
--- OUTSIDE RECORDS SUMMARY | 2025-09-18 11:39 | XMS_ITS | Encounter Summary ---
Author Organization [facility] work ([facility]) Address [address] [place] [address] Care Team Providers Care Statistical Analyst Name Role Phone Meme Steel MD Primary Care Provider [phone] Pcp, Pcp Primary Care Provider Guadalupe Sosa MD Primary Care Provider [phone] Sena Dominguez Unavailable [phone] Levy Barry MD Primary Care Provider [phone] Source Comments The information that you have received may contain highly confidential and/or federally protected health information. This information has been disclosed to you from records protected by [facility]. The law prohibits you from making any [...] the sender immediately.[facility] ([facility]) Encounter Details Date Type Department Care Team (Late st Contact Info) Description 12/15/2005 Historical Note [facility] [employer] System Devyn Vásquez MD [address] [place] [address] [phone] Social History Tobacco Use Types Packs/Day Years [...] CARRILLO - [facility] 2315 [facility] G30 [place] [phone] Brenda Clay MD 2315 [facility] [address] [place] [phone] 04/15/2026 10:00 AM EDT Office Visit LEATHA [facility] at [facility] + [facility] 4247 [facility] 105 [place] [phone] Sena Dominguez PA 4[address] [facility] [place] [address] documented as of this encounter Visit Diagnoses Not on filedocumented in this encounter Care Teams Statistical Analyst Relationship Specialty Start Date End Date Meme Steel MD [address] [place] [address] 105 [place] [address] PCP - General Pediatrics 06/05/18 04/25/22 No Pcp, Pcp PCP - General 06/08/22 07/19/22 Guadalupe Mcbride MD PCP - General Family Medicine 07/20/22 11/01/23 Sena Dominguez PA [address] [place] [address] [place] [address] PCP - BRADY Physician Manager Corporate Marketing 11/02/23 Levy Barry MD [address] [place] [address] [place] [address] PCP - General Family Medicine 12/20/23 documented as of this encounter
--- OUTSIDE RECORDS SUMMARY | 2025-09-18 11:39 | XMS_ITS | Encounter Summary ---
Author Organization [facility] work ([facility]) Address [address] [place] [address] Care Team Providers Care Manager Laundry Name Role Phone Meme Steel MD Primary Care Provider [phone] Pcp, Pcp Primary Care Provider Guadalupe Sosa MD Primary Care Provider [phone] Sena Dominguez Unavailable [phone] Levy Barry MD Primary Care Provider [phone] Source Comments The information that you have received may contain highly confidential and/or federally protected health information. This information has been disclosed to you from records protected by [facility]. The law prohibits you from making [...] contact the sender immediately.[facility] ([facility]) Encounter Details Date Type Department Care Team (Late st Contact Info) Description 11/09/2005 Historical Note [facility] [employer] System Devyn Vásquez MD [address] [place] [address] [phone] Social History Tobacco Use Types Packs/Day Years [...] CARRILLO - [facility] 2315 [facility] [address]30 [place] [phone] Brenda Clay MD 2315 [facility] [address] [place] [phone] 04/15/2026 10:00 AM EDT Office Visit LEATHA [facility] at [facility] + [facility] 4247 [facility] 105 [place] [phone] Sena Dominguez PA 4247 [facility] [place] [address] documented as of this encounter Visit Diagnoses Not on filedocumented in this encounter Care Teams Manager Laundry Relationship Specialty Start Date End Date Meme Steel MD [address] [place] [address] 105 [place] [address] PCP - General Pediatrics 06/05/18 04/25/22 No Pcp, Pcp PCP - General 06/08/22 07/19/22 Guadalupe Mcbride MD PCP - General Family Medicine 07/20/22 11/01/23 Sena Dominguez PA [address] [place] [address] [place] [address] PCP - BRADY Physician Contract Technician 11/02/23 Levy Barry MD [address] [place] [address] [place] [address] PCP - General Family Medicine 12/20/23 documented as of this encounter
--- OUTSIDE RECORDS SUMMARY | 2025-09-18 11:39 | XMS_ITS | Encounter Summary ---
Author Organization [facility] work ([facility]) Address [address] [facility] [address] [place] [address] Care Team Providers Care Distance Learning Unit Leader Name Role Phone Meme Steel MD Primary Care Provider No Pcp, Pcp Primary Care Provider Guadalupe Sosa MD Primary Care Provider [phone] Sena Dominguez Unavailable Levy Barry MD Primary Care Provider [phone] Source Comments The information that you have received may contain highly confidential and/or federally protected health information. This information has been disclosed to you from records protected by [facility]. The law prohibits you [...] sender immediately.[facility] ([facility]) Encounter Details Date Type Department Care Team (Late st Contact Info) Description 10/31/2017 Historical Note [facility] Primary Care - [facility] [address] [place] [address] Devyn Vásquez MD [facility] [place] [address] Social History Tobacco Use Types [...] 10:00 AM EST Office Visit LEATHA CARRILLO [facility] at [facility] 2315 [facility] [address] [place] [phone] Brenda Clay MD 2315 [facility] [address] [place] [phone] 04/15/2026 10:00 AM EDT Office Visit LEATHA [facility] at [facility] + [facility] [address] [facility] [address] [place] [phone] Sena Dominguez PA [address] [facility] [place] [address] documented as of this encounter Visit Diagnoses Not on filedocumented in this encounter Care Teams Distance Learning Unit Leader Relationship Specialty Start Date End Date Meme Steel MD 4247 [facility] 105 [place] [address] PCP - General Pediatrics 06/05/18 04/25/22 No Pcp, Pcp PCP - General 06/08/22 07/19/22 Guadalupe Mcbride MD PCP - General Family Medicine 07/20/22 11/01/23 Sena Dominguez PA [facility] [place] [address] PCP - BRADY Physician Band Sawing Machine Operator 11/02/23 Levy Barry MD [facility] [place] [address] PCP - General Family Medicine 12/20/23 documented as of this encounter
--- OUTSIDE RECORDS SUMMARY | 2025-09-18 11:39 | XMS_ITS | Encounter Summary ---
Author Organization [facility] work ([facility]) Address [address] [place] [address] Care Team Providers Care Drywall Finisher Name Role Phone Meme Steel MD Primary Care Provider [phone] Pcp, Pcp Primary Care Provider Guadalupe Sosa MD Primary Care Provider [phone] Sena Dominguez Unavailable [phone] Levy Barry MD Primary Care Provider [phone] Source Comments The information that you have [...] sender immediately.[facility] ([facility]) Encounter Details Date Type Department Care Team (Late st Contact Info) Description 01/06/2006 Historical Note [facility] Vaccinogen System Devyn Vásquez MD [address] [place] [address] [phone] Social History Tobacco Use Types Packs/Day Years Used Date Smoking Tobacco: Never Assessed Comments Unknown Sex and Gender Information Value Date Recorded Sex Assigned at Not on file Legal Sex Female 1:04 AM EDT Gender Identity Not on file Sexual Orientation Not on file documented as of this encounter Plan of Treatment Upcoming Encounters Date Type Department Care Team ([facility] st Contact Info) Description 10/10/2025 10:00 AM EST Office Visit LEATHA [facility]LLO - [facility] [address] [facility] [address] [place] [phone] Brenda Clay MD 2315 [facility] [address] [place] [phone] 04/15/2026 10:00 AM EDT Office Visit [facility] at [facility] + [facility] [address] [facility] [address] [place] [phone] Sena Dominguez PA [address] [facility] [place] [address] documented as of this encounter Visit Diagnoses Not on filedocumented in this encounter Care Teams Drywall Finisher Relationship Specialty Start Date End Date Meme Steel MD [address] [place] [address] 105 [place] [address] PCP - General Pediatrics 06/05/18 04/25/22 No Pcp, Pcp PCP - General 06/08/22 07/19/22 Guadalupe Mcbride MD PCP - General Family Medicine 07/20/22 11/01/23 Sena Dominguez PA [address] [place] [address] [place] [address] PCP - BRADY Physician Face Hardener 11/02/23 Levy Barry MD [address] [place] [address] [place] [address] PCP - General Family Medicine 12/20/23 documented as of this encounter
--- OUTSIDE RECORDS SUMMARY | 2025-09-18 11:40 | XMS_ITS | Encounter Summary ---
Author Organization [facility] work ([facility]) Address [address] [place] [address] Care Team Providers Care Process Engineering Intern Name Role Phone Meme Steel MD Primary Care Provider [phone] Pcp, Pcp Primary Care Provider Guadalupe Sosa MD Primary Care Provider [phone] Sena Dominguez Unavailable [phone] Levy Barry MD Primary Care Provider [phone] Source Comments The information that you have received may contain highly confidential and/or federally protected health information. This information has been disclosed to you from records protected by [facility]. The law prohibits you from making any [...] contact the sender immediately.[facility] ([facility]) Encounter Details Date Type Department Care Team (Late st Contact Info) Description 03/21/2016 Historical Note [facility] AirSage System Devyn Vásquez MD [address] [place] [address] [phone] Social History Tobacco Use Types Packs/Day Years Used Date Smoking Tobacco: Never Assessed Comments Unknown Sex and Gender Information Value Date Recorded Sex Assigned at Not on file Legal Sex Female 1:04 AM EDT Gender Identity Not on file Sexual Orientation Not on file documented as of this encounter Plan of Treatment Upcoming Encounters Date Type Department Care Team ([facility] st Contact Info) Description 10/10/2025 10:00 AM EST Office Visit LEATHA CARRILLO - [facility] at [facility] [address] [facility] [address] [place] [phone] Brenda Clay MD 2315 [facility] [address] [place] [phone] 04/15/2026 10:00 AM EDT Office Visit LE[facility]HA [facility] at [facility] + [facility] [address] [facility] 105 [place] [phone] Sena Dominguez PA [address] [facility] [place] [address] documented as of this encounter Visit Diagnoses Not on filedocumented in this encounter Care Teams Process Engineering Intern Relationship Specialty Start Date End Date Meme Steel MD [address] [place] [address] 105 [place] [address] PCP - General Pediatrics 06/05/18 04/25/22 No Pcp, Pcp PCP - General 06/08/22 07/19/22 Guadalupe Mcbride MD PCP - General Family Medicine 07/20/22 11/01/23 Sena Dominguez PA [address] [place] [address] [place] [address] PCP - BRADY Physician Police Reserves Commander 11/02/23 Levy Barry MD [address] [place] [address] [place] [address] PCP - General Family Medicine 12/20/23 documented as of this encounter
--- OUTSIDE RECORDS SUMMARY | 2025-09-18 11:40 | XMS_ITS | Encounter Summary ---
Author Organization [facility] work ([facility]) Address [address] [place] [address] Care Team Providers Care Technical Specialist Cytology Name Role Phone Meme Steel MD Primary Care Provider No Pcp, Pcp Primary Care Provider Guadalupe Sosa MD Primary Care Provider [phone] Sena Dominguez Unavailable [phone] Levy Barry MD Primary Care Provider [phone] Source Comments The information that you have received may contain highly confidential and/or federally protected health information. This information has been disclosed to you from records protected by [facility]. The law prohibits you from [...] error, please contact the sender immediately.[facility] ([facility]) Encounter Details Date Type Department Care Team (Late st Contact Info) Description 08/10/2009 Historical Note [facility] Elevation Lab System Devyn Vásquez MD [address] [place] [address] [phone] Social History Tobacco Use Types Packs/Day Years [...] - [facility] at [facility] 23[address] [facility] [address] [place] [phone] Brenda Clay MD 2315 [facility] [address] [place] [phone] 04/15/2026 10:00 AM EDT Office Visit LEATHA Primary [facility] at [facility] + [facility] 4[address] [facility] [address] [place] [phone] Sena Dominguez PA [address] [facility] [place] [address] documented as of this encounter Visit Diagnoses Not on filedocumented in this encounter Care Teams Technical Specialist Cytology Relationship Specialty Start Date End Date Meme Steel MD [address] [place] [address] 105 [place] [address] PCP - General Pediatrics 06/05/18 04/25/22 No Pcp, Pcp PCP - General 06/08/22 07/19/22 Guadalupe Mcbride MD PCP - General Family Medicine 07/20/22 11/01/23 Sena Dominguez PA [address] [place] [address] [place] [address] PCP - BRADY Physician Customer Success Intern 11/02/23 Levy Barry MD [address] [place] [address] [place] [address] PCP - General Family Medicine 12/20/23 documented as of this encounter
--- OUTSIDE RECORDS SUMMARY | 2025-09-18 11:40 | XMS_ITS | Encounter Summary ---
Author Organization [facility] work ([facility]) Address [address] [place] [address] Care Team Providers Care Electric Meter Repairer Name Role Phone Meme Steel MD Primary Care Provider [phone] Pcp, Pcp Primary Care Provider Guadalupe Sosa MD Primary Care Provider [phone] Sena Dominguez Unavailable [phone] Levy Barry MD Primary Care Provider [phone] Source Comments The information that you have [...] please contact the sender immediately.[facility] ([facility]) Encounter Details Date Type Department Care Team (Late st Contact Info) Description 08/13/2009 Historical Note [facility] Formula XO System Devyn Vásquez MD [address] [place] [address] [phone] Social History Tobacco Use Types Packs/Day Years [...] LEATHA CARRILLO - [facility] [address] [facility] [address] [place] [phone] Brenda Clay MD 2315 [facility] [address] [place] [phone] 04/15/2026 10:00 AM EDT Office Visit LEATHA [facility] at [facility] 4247 [facility] [address] [place] [phone] Sena Domignuez PA 4[address] [facility] [place] [address] documented as of this encounter Visit Diagnoses Not on filedocumented in this encounter Care Teams Electric Meter Repairer Relationship Specialty Start Date End Date Meme Steel MD [address] [place] [address] 105 [place] [address] PCP - General Pediatrics 06/05/18 04/25/22 No Pcp, Pcp PCP - General 06/08/22 07/19/22 Guadalupe Mcbride MD PCP - General Family Medicine 07/20/22 11/01/23 Sena Dominguez PA [address] [place] [address] [place] [address] PCP - BRADY Physician Information Security Officer 11/02/23 Levy Barry MD [address] [place] [address] [place] [address] PCP - General Family Medicine 12/20/23 documented as of this encounter
--- OUTSIDE RECORDS SUMMARY | 2025-09-18 11:40 | XMS_ITS | Encounter Summary ---
Author Organization [facility] work ([facility]) Address [address] [place] [address] Care Team Providers Care Appian Bpm Developer Name Role Phone Meme Steel MD Primary Care Provider [phone] Pcp, Pcp Primary Care Provider Guadalupe Sosa MD Primary Care Provider [phone] Sena Dominguez Unavailable [phone] Levy Barry MD Primary Care Provider [phone] Source Comments The information that you have [...] please contact the sender immediately.[facility] ([facility]) Encounter Details Date Type Department Care Team (Late st Contact Info) Description 09/01/2009 Historical Note [facility] Litographs System Devyn Vásquez MD [address] [place] [address] [phone] Social History Tobacco Use Types Packs/Day Years Used Date Smoking Tobacco: Never Assessed Comments Unknown Sex and Gender Information Value Date Recorded Sex Assigned at Not on file Legal Sex Female 1:04 AM EDT Gender Identity Not on file Sexual Orientation Not on file documented as of this encounter Plan of Treatment Upcoming Encounters Date Type Department Care Team ([facility] Contact Info) Description 10/10/2025 10:00 AM EST Office Visit LEATHA CARRILLO - [facility] [address] [facility] [address] [place] [phone] Brenda Clay MD 2315 [facility] [address] [place] [phone] 04/15/2026 10:00 AM EDT Office Visit LEATHA Primary Care at [facility] + [facility] 4[address] [facility] 105 [place] [phone] Sena Dominguez PA 4[address] [facility] [place] [address] documented as of this encounter Visit Diagnoses Not on filedocumented in this encounter Care Teams Appian Bpm Developer Relationship Specialty Start Date End Date Meme Steel MD [address] [place] [address] 105 [place] [address] PCP - General Pediatrics 06/05/18 04/25/22 No Pcp, Pcp PCP - General 06/08/22 07/19/22 Guadalupe Mcbride MD PCP - General Family Medicine 07/20/22 11/01/23 Sena Dominguez PA [address] [place] [address] [place] [address] PCP - BRADY Physician Game Advisor 11/02/23 Levy Barry MD [address] [place] [address] [place] [address] PCP - General Family Medicine 12/20/23 documented as of this encounter
--- OUTSIDE RECORDS SUMMARY | 2025-09-18 11:40 | XMS_ITS | Encounter Summary ---
Author Organization [facility] work ([facility]) Address [address] [place] [address] Care Team Providers Care Medical Sales Associate Name Role Phone Meme Steel MD Primary Care Provider [phone] Pcp, Pcp Primary Care Provider Guadalupe Sosa MD Primary Care Provider [phone] Sena Dominguez Unavailable [phone] Levy Barry MD Primary Care Provider [phone] Source Comments The information that you have received may contain highly confidential and/or federally protected health information. This information has been disclosed to you from records protected by [facility]. The law prohibits you from making [...] error, please contact the sender immediately.[facility] ([facility]) Encounter Details Date Type Department Care Team (Late st Contact Info) Description 07/13/2016 Historical Note [facility] [employer] System Devyn Vásquez MD [address] [place] [address] [phone] Social History Tobacco Use Types Packs/Day Years [...] CARRILLO - [facility] at [facility] 2315 [facility] [address] [place] [phone] Brenda Clay MD 2315 [facility] [address] [place] [phone] 04/15/2026 10:00 AM EDT Office Visit LEATHA Primary [facility] at [facility] + [facility] 4247 [facility] [address] [place] [phone] Sena Dominguez PA [address] [facility] [place] [address] documented as of this encounter Visit Diagnoses Not on filedocumented in this encounter Care Teams Medical Sales Associate Relationship Specialty Start Date End Date Meme Steel MD [address] [place] [address] 105 [place] [address] PCP - General Pediatrics 06/05/18 04/25/22 No Pcp, Pcp PCP - General 06/08/22 07/19/22 Guadalupe Mcbride MD PCP - General Family Medicine 07/20/22 11/01/23 Sena Dominguez PA [address] [place] [address] [place] [address] PCP - BRADY Physician Orchid Hand 11/02/23 Levy Barry MD [address] [place] [address] [place] [address] PCP - General Family Medicine 12/20/23 documented as of this encounter
--- OUTSIDE RECORDS SUMMARY | 2025-09-18 11:40 | XMS_ITS | Encounter Summary ---
Author Organization [facility] work ([facility]) Address [address] [place] [address] Care Team Providers Care Top Hat Body Maker Name Role Phone Meme Steel MD Primary Care Provider [phone] Pcp, Pcp Primary Care Provider Guadalupe Sosa MD Primary Care Provider [phone] Sena Dominguez Unavailable [phone] Levy Barry MD Primary Care Provider [phone] Source Comments The information that you have received may contain highly confidential and/or federally protected health information. This information has been disclosed to you from records protected by [facility]. The law prohibits you from making [...] contact the sender immediately.[facility] ([facility]) Encounter Details Date Type Department Care Team (Late st Contact Info) Description 06/20/2005 Historical Note [facility] 3G Multimedia System Devyn Vásquez MD [address] [place] [address] [phone] Social History Tobacco Use Types Packs/Day Years Used Date Smoking Tobacco: Never Assessed Comments Unknown Sex and Gender Information Value Date Recorded Sex Assigned at Not on file Legal Sex Female 1:04 AM EDT Gender Identity Not on file Sexual Orientation Not on file documented as of this encounter Plan of Treatment Upcoming Encounters Date Type Department Care Team ([facility] st Contact Info) Description 10/10/2025 10:00 AM EST Office Visit LEATHA CARRILLO - [facility] 2315 [facility] [address] [place] [phone] Brenda Clay MD 2315 [facility] [address] [place] [phone] 04/15/2026 10:00 AM EDT Office Visit LEATHA Primary [facility] at [facility] + [facility] 4247 [facility] 105 [place] [phone] Sena Dominguez PA 4247 [facility] [place] [address] documented as of this encounter Visit Diagnoses Not on filedocumented in this encounter Care Teams Top Hat Body Maker Relationship Specialty Start Date End Date Meme Steel MD [address] [place] [address] 105 [place] [address] PCP - General Pediatrics 06/05/18 04/25/22 No Pcp, Pcp PCP - General 06/08/22 07/19/22 Guadalupe Mcbride MD PCP - General Family Medicine 07/20/22 11/01/23 Sena Dominguez PA [address] [place] [address] [place] [address] PCP - BRADY Physician Spreader Operator 11/02/23 Levy Barry MD [address] [place] [address] [place] [address] PCP - General Family Medicine 12/20/23 documented as of this encounter
--- OUTSIDE RECORDS SUMMARY | 2025-09-18 11:40 | XMS_ITS | Encounter Summary ---
Author Organization [facility] work ([facility]) Address [address] [place] [address] Care Team Providers Care Underground Repairer Name Role Phone Meme Steel MD Primary Care Provider [phone] Pcp, Pcp Primary Care Provider Guadalupe Sosa MD Primary Care Provider [phone] Sena Dominguez Unavailable [phone] Levy Barry MD Primary Care Provider [phone] Source Comments The information that you have received may contain highly confidential and/or federally protected health information. This information has been disclosed to you from records protected by [facility]. The law prohibits you from making [...] error, please contact the sender immediately.[facility] ([facility]) Encounter Details Date Type Department Care Team (Late st Contact Info) Description 11/10/2005 Historical Note [facility] DrEd Online Doctor System Devyn Vásquez MD [address] [place] [address] [phone] Social History Tobacco Use Types Packs/Day Years Used Date Smoking Tobacco: Never Assessed Comments Unknown Sex and Gender Information Value Date Recorded Sex Assigned at Not on file Legal Sex Female 1:04 AM EDT Gender Identity Not on file Sexual Orientation Not on file documented as of this encounter Plan of Treatment Upcoming Encounters Date Type Department Care Team ([facility] st Contact Info) Description 10/10/2025 10:00 AM EST Office Visit LEATHA CARRILLO - [facility] [address] [facility] G30 [place] [phone] Brenda Clay MD 2315 [facility] [address] [place] [phone] 04/15/2026 10:00 AM EDT Office Visit LEATHA [facility] at [facility] 4247 [facility] [address] [place] [phone] Sena Dominguez PA 4247 [facility] [place] [address] documented as of this encounter Visit Diagnoses Not on filedocumented in this encounter Care Teams Underground Repairer Relationship Specialty Start Date End Date Meme Steel MD [address] [place] [address] 105 [place] [address] PCP - General Pediatrics 06/05/18 04/25/22 No Pcp, Pcp PCP - General 06/08/22 07/19/22 Guadalupe Mcbride MD PCP - General Family Medicine 07/20/22 11/01/23 Sena Dominguez PA [address] [place] [address] [place] [address] PCP - BRADY Physician Cold Press Loader 11/02/23 Levy Barry MD [address] [place] [address] [place] [address] PCP - General Family Medicine 12/20/23 documented as of this encounter
--- OUTSIDE RECORDS SUMMARY | 2025-09-18 11:40 | XMS_ITS | Encounter Summary ---
Author Organization [facility] work ([facility]) Address [address] [place] [address] Care Team Providers Care Human Resources Team Member Name Role Phone Meme Steel MD Primary Care Provider [phone] Pcp, Pcp Primary Care Provider Guadalupe Sosa MD Primary Care Provider [phone] Sena Dominguez Unavailable [phone] Levy Barry MD Primary Care Provider [phone] Source Comments The information that you have received may contain highly confidential and/or federally protected health information. This information has been disclosed to you from records protected by [facility]. The law prohibits you from making [...] please contact the sender immediately.[facility] ([facility]) Encounter Details Date Type Department Care Team (Late st Contact Info) Description 10/23/2009 Historical Note [facility] Bloominous System Devyn Vásquez MD [address] [place] [address] [phone] Social History Tobacco Use Types Packs/Day Years Used Date Smoking Tobacco: Never Assessed Comments Unknown Sex and Gender Information Value Date Recorded Sex Assigned at Not on file Legal Sex Female 1:04 AM EDT Gender Identity Not on file Sexual Orientation Not on file documented as of this encounter Plan of Treatment Upcoming Encounters Date Type Department Care Team ([facility] st Contact Info) Description 10/10/2025 10:00 AM EST Office Visit LEATHA CARRILLO - [facility] 2315 [facility] G30 [place] [phone] Brenda Clay MD 2315 [facility] [address] [place] [phone] 04/15/2026 10:00 AM EDT Office Visit LEATHA [facility] at [facility] 4247 [facility] 105 [place] [phone] Sena Dominguez PA 4247 [facility] [place] [address] documented as of this encounter Visit Diagnoses Not on filedocumented in this encounter Care Teams Human Resources Team Member Relationship Specialty Start Date End Date Meme Steel MD [address] [place] [address] 105 [place] [address] PCP - General Pediatrics 06/05/18 04/25/22 No Pcp, Pcp PCP - General 06/08/22 07/19/22 Guadalupe Mcbride MD PCP - General Family Medicine 07/20/22 11/01/23 Sena Dominguez PA [address] [place] [address] [place] [address] PCP - BRADY Physician Washer Repairman 11/02/23 Levy Barry MD [address] [place] [address] [place] [address] PCP - General Family Medicine 12/20/23 documented as of this encounter
--- OUTSIDE RECORDS SUMMARY | 2025-09-18 11:40 | XMS_ITS | Encounter Summary ---
Author Organization [facility] work ([facility]) Address [address] [place] [address] Care Team Providers Care Test Kitchen Home Economist Name Role Phone Meme Steel MD Primary Care Provider No Pcp, Pcp Primary Care Provider Guadalupe Sosa MD Primary Care Provider [phone] Sena Dominguez Unavailable [phone] Levy Barry MD Primary Care Provider [phone] Source Comments The information that you have received may contain highly confidential and/or federally protected health information. This information has been disclosed to you from records protected by [facility]. The law prohibits you from making [...] the sender immediately.[facility] ([facility]) Encounter Details Date Type Department Care Team (Late st Contact Info) Description 05/31/2005 Historical Note [facility] [employer] System Devny Vásquez MD [address] [place] [address] [phone] Social History Tobacco Use Types Packs/Day Years [...] LEATHA CARRILLO - [facility] at [facility] [address] [facility] [address] [place] [phone] Brenda Clay MD 2315 [facility] [address] [place] [phone] 04/15/2026 10:00 AM EDT Office Visit [facility] + [facility] 4[address] [facility] [address] [place] [phone] Sena Dominguez PA 4[address] [facility] [place] [address] documented as of this encounter Visit Diagnoses Not on filedocumented in this encounter Care Teams Test Kitchen Home Economist Relationship Specialty Start Date End Date eMme Steel MD [address] [place] [address] 105 [place] [address] PCP - General Pediatrics 06/05/18 04/25/22 No Pcp, Pcp PCP - General 06/08/22 07/19/22 Guadalupe Mcbride MD PCP - General Family Medicine 07/20/22 11/01/23 Sena Dominguez PA [address] [place] [address] [place] [address] PCP - BRADY Physician Marine Pipefitter 11/02/23 Levy Barry MD [address] [place] [address] [place] [address] PCP - General Family Medicine 12/20/23 documented as of this encounter
--- OUTSIDE RECORDS SUMMARY | 2025-09-18 11:40 | XMS_ITS | Encounter Summary ---
Author Organization [facility] work ([facility]) Address [address] [facility] [address] [place] [address] Care Team Providers Care Flatwork Assembler Name Role Phone Meme Steel MD Primary Care Provider [phone] Pcp, Pcp Primary Care Provider Guadalupe Sosa MD Primary Care Provider [phone] Sena Dominguez Unavailable [phone] Levy Barry MD Primary Care Provider [phone] Source Comments The information that you have [...] please contact the sender immediately.[facility] ([facility]) Encounter Details Date Type Department Care Team (Late st Contact Info) Description 11/10/2005 Historical Note [facility] [employer] System Devyn Vásquez MD [address] [place] [address] [phone] Social History Tobacco Use Types Packs/Day Years [...] CARRILLO - [facility] 2315 [facility] [address] [place] [phone] Brenda Clay MD 2315 [facility] [address] [place] [phone] 04/15/2026 10:00 AM EDT Office Visit [facility] at [facility] + [facility] 4247 [facility] [address] [place] [phone] Sena Dominguez PA 4247 [facility] [place] [address] documented as of this encounter Visit Diagnoses Not on filedocumented in this encounter Care Teams Flatwork Assembler Relationship Specialty Start Date End Date Meme Steel MD [address] [place] [address] 105 [place] [address] PCP - General Pediatrics 06/05/18 04/25/22 No Pcp, Pcp PCP - General 06/08/22 07/19/22 Guadalupe Mcbride MD PCP - General Family Medicine 07/20/22 11/01/23 Sena Dominguez PA [address] [place] [address] [place] [address] PCP - BRADY Physician Automatic Casting Machine Operator 11/02/23 Levy Barry MD [address] [place] [address] [place] [address] PCP - General Family Medicine 12/20/23 documented as of this encounter
--- OUTSIDE RECORDS SUMMARY | 2025-09-18 11:40 | XMS_ITS | Encounter Summary ---
Author Organization [facility] work ([facility]) Address [address] [place] [address] Care Team Providers Care Small Parts Shaper Operator Name Role Phone Meme Steel MD Primary Care Provider [phone] Pcp, Pcp Primary Care Provider Guadalupe Sosa MD Primary Care Provider [phone] Sena Dominguez Unavailable [phone] Levy Barry MD Primary Care Provider [phone] Source Comments The information that you have [...] please contact the sender immediately.[facility] ([facility]) Encounter Details Date Type Department Care Team (Late st Contact Info) Description 08/13/2009 Historical Note [facility] Zady System Devyn Vásquez MD [address] [place] [address] [phone] Social History Tobacco Use Types Packs/Day Years [...] CARRILLO - [facility] 2315 [facility] [address] [place] [phone] Brenda Clay MD 2315 [facility] [address] [place] [phone] 04/15/2026 10:00 AM EDT Office Visit [facility] at [facility] 4247 [facility] 105 [place] [phone] Sena Dominguez PA 4247 [facility] [place] [address] documented as of this encounter Visit Diagnoses Not on filedocumented in this encounter Care Teams Small Parts Shaper Operator Relationship Specialty Start Date End Date Meme Steel MD [address] [place] [address] 105 [place] [address] PCP - General Pediatrics 06/05/18 04/25/22 No Pcp, Pcp PCP - General 06/08/22 07/19/22 Guadalupe Mcbride MD PCP - General Family Medicine 07/20/22 11/01/23 Sena Dominguez PA [address] [place] [address] [place] [address] PCP - BRADY Physician Electro Winning Operator 11/02/23 Levy Barry MD [address] [place] [address] [place] [address] PCP - General Family Medicine 12/20/23 documented as of this encounter
--- OUTSIDE RECORDS SUMMARY | 2025-09-18 11:40 | XMS_ITS | Encounter Summary ---
Author Organization [facility] work ([facility]) Address [address] [place] [address] Care Team Providers Care Rn Lpn Lvn Name Role Phone Meme Steel MD Primary Care Provider [phone] Pcp, Pcp Primary Care Provider Guadalupe Sosa MD Primary Care Provider [phone] Sena Dominguez Unavailable [phone] Levy Barry MD Primary Care Provider [phone] Source Comments The information that you have [...] please contact the sender immediately.[facility] ([facility]) Encounter Details Date Type Department Care Team (Late st Contact Info) Description 05/30/2005 Historical Note [facility] [employer] System Devyn Vásquez MD [address] [place] [address] [phone] Social History Tobacco Use Types Packs/Day Years [...] - Located [facility] 2315 [facility] [address] [place] [phone] Brenda Clay MD 2315 [facility] [address] [place] [phone] 04/15/2026 10:00 AM EDT Office Visit [facility]HA [facility] at [facility] + [facility] 4[address] [facility] [address] [place] [phone] Sena Dominguez PA 4247 [facility] [place] [address] documented as of this encounter Visit Diagnoses Not on filedocumented in this encounter Care Teams Rn Lpn Lvn Relationship Specialty Start Date End Date Meme Steel MD [address] [place] [address] 105 [place] [address] PCP - General Pediatrics 06/05/18 04/25/22 No Pcp, Pcp PCP - General 06/08/22 07/19/22 Guadalupe Mcbride MD PCP - General Family Medicine 07/20/22 11/01/23 Sena Dominguez PA [address] [place] [address] [place] [address] PCP - BRADY Physician Vamp Stitcher 11/02/23 Levy Barry MD [address] [place] [address] [place] [address] PCP - General Family Medicine 12/20/23 documented as of this encounter
--- OUTSIDE RECORDS SUMMARY | 2025-09-18 11:40 | XMS_ITS | Encounter Summary ---
Author Organization [facility] work ([facility]) Address [address] [facility] [address] [facility] [address] [place] [address] Care Team Providers Care Glue Size Machine Operator Name Role Phone Meme Steel MD Primary Care Provider [phone] Pcp, Pcp Primary Care Provider Guadalupe Sosa MD Primary Care Provider [phone] Sena Dominguez Unavailable [phone] Levy Barry MD Primary Care Provider [phone] Source Comments The information that you have received may contain highly confidential and/or federally protected health information. This information has been disclosed to you from records protected by [facility]. The law prohibits you from [...] error, please contact the sender immediately.[facility] ([facility]) Encounter Details Date Type Department Care Team (Late st Contact Info) Description 11/09/2005 Historical Note [facility] [employer] System Devyn Vásquez MD [address] [place] [address] [phone] Social History Tobacco Use Types Packs/Day Years [...] [facility] 2315 [facility] G30 [place] [phone] Brenda Clay MD 23[address] [facility] [address] [place] [phone] 04/15/2026 10:00 AM EDT Office Visit [facility] 4247 [facility] 105 [place] [phone] Sena Dominguez PA 4247 [facility] [place] [address] documented as of this encounter Visit Diagnoses Not on filedocumented in this encounter Care Teams Glue Size Machine Operator Relationship Specialty Start Date End Date Meme Steel MD [address] [place] [address] 105 [place] [address] PCP - General Pediatrics 06/05/18 04/25/22 No Pcp, Pcp PCP - General 06/08/22 07/19/22 Guadalupe Mcbride MD PCP - General Family Medicine 07/20/22 11/01/23 Sena Dominguez PA [address] [place] [address] [place] [address] PCP - BRADY Physician Cooler Worker 11/02/23 Levy Barry MD [address] [place] [address] [place] [address] PCP - General Family Medicine 12/20/23 documented as of this encounter
--- OUTSIDE RECORDS SUMMARY | 2025-09-18 11:40 | XMS_ITS | Clinical Summary ---
Author Organization [facility] Address [address] [place] [address] Care Team Providers Care Child Protective Investigator Name Role Phone Meme Steel Primary Care Provider [phone] Source Comments 42 CFR part 2 prohibits unauthorized use or disclosure of these records.[facility] Active Problems Problem Noted Date Diagnosed Date Obesity, childhood 07/30/2018 No secondhand smoke exposure 07/30/2018 Immunizations Immunization Administration Dates Next Due Sars-Cov-2 (Purple Cap, With Diluent) Pfizer ,02/10/2021 Social History Tobacco Use Types Packs/Day Years Used Date Smoking Tobacco: Passive Smo ke Exposure - Never Smoker Smokeless Tobacco: Never Comments Unknown Sex and Gender Information Value Date Recorded Sex Assigned at Not on file Legal Sex Female 4:41 PM EDT Gender Identity Not on file Sexual Orientation Not on file Last Filed Vital Signs Vital Sign Reading Time Taken Comments Blood Pressure 130/87 05/11/2023 11:17 AM EDT Pulse 71 05/11/2023 11:17 AM EDT Temperature 36.7 C (98 F) 06/06/2020 7:13 PM EDT Respiratory Rate 18 05/11/2023 11:17 AM EDT Oxygen Saturation 97% 05/11/2023 11:17 AM EDT Inhaled Oxygen Concentration - - Weight 117 kg (257 lb 15 oz) 05/11/2023 11:17 AM EDT Height 168.2 cm (5' 6.22 ) 05/11/2023 11:17 AM E DT Body Mass Index 41.36 05/11/2023 11:17 AM EDT Plan of Treatment Upcoming Encounters Date Type Department Care Team (Late st Contact Info) Description 11/10/2025 9:40 AM EST Office Visit [facility] Pediatric Neurology [address] [facility] [address] [place] [phone] Eros Rosas MD [address] [place] [address] Health Maintenance Due Date Last Done Comments Chlamydia and Gonorrhea Screening 2004 Folic Acid Supplementation 2004 HIV Screening 2004 Lipid Panel 2004 Annual Well Child 2007 Depression Screening 2015 Varicella Vaccines (1 of 2 - 13+ 2-dose series) 2017 HPV Vaccines (1 - 3-dose series) 2019 Meningococcal B Vaccine (1 o f 2 - Standard) 2020 Annual Exam 2022 Hepatitis C Screening 2022 DTaP/Tdap/Td Vaccines (1 - Tdap) 2023 Hepatitis B Vaccines (1 of 3 - 19+ 3-dose series) 2023 Pap Smear 2025 COVID-19 Vaccine (3 - 2024-2 6 season) 2025 03/03/2021, 02/10/2021 Influenza Vaccine (#1) 2025 HIB Vaccines Aged Out No longer eligi ble based on patient's age to complete this topic Hepatitis A Vaccines Aged Out No long er eligible based on patient's age to complete this topic IPV Vaccines Aged Out No longer eligi ble based on patient's age to complete this topic Meningococcal Vaccine Aged Out No gianna michael eligible based on patient's age to complete this topic Pneumococcal Vaccine: Pediatrics (0 to 5 Years) and At-Risk Patients (6 to 49 Years) Aged Out No longer eligible based on patient's age to complete this topic Rotavirus Vaccines Aged Out No longer eligible based on patient's age to complete this topic Care Teams Child Protective Investigator Relationship Specialty Start Date End Date Meme Steel 4247 [facility] [address] [place] [address] PCP - General Pediatrics 05/26/18
--- OUTSIDE RECORDS SUMMARY | 2025-09-18 11:40 | XMS_ITS | Encounter Summary ---
Author Organization [facility] work ([facility]) Address [address] [place] [address] Care Team Providers Care Tool Maker Apprentice Name Role Phone Meme Steel MD Primary Care Provider [phone] Pcp, Pcp Primary Care Provider Guadalupe Sosa MD Primary Care Provider [phone] Sena Dominguez Unavailable [phone] Levy Barry MD Primary Care Provider [phone] Source Comments The information that you have [...] please contact the sender immediately.[facility] ([facility]) Encounter Details Date Type Department Care Team (Late st Contact Info) Description 03/29/2016 Historical Note [facility] [employer] System Devyn Vásquez MD [address] [place] [address] [phone] Social History Tobacco Use Types Packs/Day Years [...] Visit LEATHA CARRILLO - [facility] 2315 [facility] [address] [place] [phone] Brenda Clay MD 2315 [facility] [address] [place] [phone] 04/15/2026 10:00 AM EDT Office Visit [facility]HA [facility] at [facility] + [facility] 4247 [facility] 105 [place] [phone] Sena Dominguez PA 4247 [facility] [place] [address] documented as of this encounter Visit Diagnoses Not on filedocumented in this encounter Care Teams Tool Maker Apprentice Relationship Specialty Start Date End Date Meme Steel MD [address] [place] [address] 105 [place] [address] PCP - General Pediatrics 06/05/18 04/25/22 No Pcp, Pcp PCP - General 06/08/22 07/19/22 Guadalupe Mcbride MD PCP - General Family Medicine 07/20/22 11/01/23 Sena Dominguez PA [address] [place] [address] [place] [address] PCP - BRADY Physician Music Industry Internship 11/02/23 Levy Barry MD [address] [place] [address] [place] [address] PCP - General Family Medicine 12/20/23 documented as of this encounter
--- OUTSIDE RECORDS SUMMARY | 2025-09-18 11:40 | XMS_ITS | Encounter Summary ---
Author Organization [facility] work ([facility]) Address [address] [place] [address] Care Team Providers Care Customer Acquisition Specialist Name Role Phone Meme Stele MD Primary Care Provider [phone] No Pcp, Pcp Primary Care Provider Guadalupe Sosa MD Primary Care Provider [phone] Sena Dominguez Unavailable [phone] Levy Barry MD Primary Care Provider [phone] Source Comments The information that you have received may contain highly confidential and/or federally protected health information. This information has been disclosed to you from records protected by [facility]. The law prohibits you from making [...] contact the sender immediately.[facility] ([facility]) Encounter Details Date Type Department Care Team (Late st Contact Info) Description 08/13/2009 Historical Note [facility] [employer] System Devyn Vásquez MD [address] [place] [address] [phone] Social History Tobacco Use Types Packs/Day Years [...] LEATHA CARRILLO - [facility] 2315 [facility] G30 [place] [phone] Brenda Clay MD 2315 [facility] [address] [place] [phone] 04/15/2026 10:00 AM EDT Office Visit LEATHA Primary [facility] at [facility] + [facility] 4247 [facility] 105 [place] [phone] Sena Dominguez PA 4247 [facility] [place] [address] documented as of this encounter Visit Diagnoses Not on filedocumented in this encounter Care Teams Customer Acquisition Specialist Relationship Specialty Start Date End Date Meme Steel MD [address] [place] [address] 105 [place] [address] PCP - General Pediatrics 06/05/18 04/25/22 No Pcp, Pcp PCP - General 06/08/22 07/19/22 Guadalupe Mcbride MD PCP - General Family Medicine 07/20/22 11/01/23 Sena Dominguez PA [address] [place] [address] [place] [address] PCP - BRADY Physician Periodontist 11/02/23 Levy Barry MD [address] [place] [address] [place] [address] PCP - General Family Medicine 12/20/23 documented as of this encounter
--- OUTSIDE RECORDS SUMMARY | 2025-09-18 11:40 | XMS_ITS | Encounter Summary ---
Author Organization [facility] work ([facility]) Address [address] [place] [address] Care Team Providers Care Duty Manager Name Role Phone Meme Steel MD Primary Care Provider [phone] No Pcp, Pcp Primary Care Provider Guadalupe Sosa MD Primary Care Provider [phone] Sena Dominguez Unavailable [phone] Levy Barry MD Primary Care Provider [phone] Source Comments The information that you have [...] please contact the sender immediately.[facility] ([facility]) Encounter Details Date Type Department Care Team (Late st Contact Info) Description 09/10/2009 Historical Note [facility] [employer] System Devyn Vásquez MD [address] [place] [address] [phone] Social History Tobacco Use Types Packs/Day Years [...] CARRILLO - [facility] 2315 [facility] G[address] [place] [phone] Brenda Clay MD [address] [facility] [address] [place] [phone] 04/15/2026 10:00 AM EDT Office Visit [facility] 4247 [facility] 105 [place] [phone] Sena Dominguez PA 4247 [facility] [place] [address] documented as of this encounter Visit Diagnoses Not on filedocumented in this encounter Care Teams Duty Manager Relationship Specialty Start Date End Date Meme Steel MD [address] [place] [address] 105 [place] [address] PCP - General Pediatrics 06/05/18 04/25/22 No Pcp, Pcp PCP - General 06/08/22 07/19/22 Guadalupe Mcbride MD PCP - General Family Medicine 07/20/22 11/01/23 Sena Dominguez PA [address] [place] [address] [place] [address] PCP - BRADY Physician Felt Hat Inspector And Packer 11/02/23 Levy Barry MD [address] [place] [address] [place] [address] PCP - General Family Medicine 12/20/23 documented as of this encounter
--- OUTSIDE RECORDS SUMMARY | 2025-09-18 11:40 | XMS_ITS | Encounter Summary ---
Author Organization [facility] work ([facility]) Address [address] [place] [address] Care Team Providers Care Dog Handler Name Role Phone Meme Steel MD Primary Care Provider [phone] No Pcp, Pcp Primary Care Provider Guadalupe Sosa MD Primary Care Provider [phone] Sena Dominguez Unavailable [phone] Levy Barry MD Primary Care Provider [phone] Source Comments The information that you have [...] contact the sender immediately.[facility] ([facility]) Encounter Details Date Type Department Care Team (Late st Contact Info) Description 06/14/2011 Historical Note [facility] [employer] System Devyn Vásquez MD [address] [place] [address] [phone] Social History Tobacco Use Types Packs/Day Years [...] Visit LEATHA CARRILLO - [facility] 2315 [facility] [address] [place] [phone] Brenda Clay MD 2315 [facility] [address] [place] [phone] 04/15/2026 10:00 AM EDT Office Visit LEATHA [facility] at [facility] + [facility] 4247 [facility] 105 [place] [phone] Sena Dominguez PA 4247 [facility] [place] [address] documented as of this encounter Visit Diagnoses Not on filedocumented in this encounter Care Teams Dog Handler Relationship Specialty Start Date End Date Meme Steel MD [address] [place] [address] 105 [place] [address] PCP - General Pediatrics 06/05/18 04/25/22 No Pcp, Pcp PCP - General 06/08/22 07/19/22 Guadalupe Mcbride MD PCP - General Family Medicine 07/20/22 11/01/23 Sena Dominguez PA [address] [place] [address] [place] [address] PCP - BRADY Physician Bead Forming Machine Set Up Operator 11/02/23 Levy Barry MD [address] [place] [address] [place] [address] PCP - General Family Medicine 12/20/23 documented as of this encounter
--- OUTSIDE RECORDS SUMMARY | 2025-09-18 11:40 | XMS_ITS | Encounter Summary ---
Author Organization [facility] work ([facility]) Address [address] [place] [address] Care Team Providers Care Solder Making Supervisor Name Role Phone Meme Steel MD Primary Care Provider No Pcp, Pcp Primary Care Provider Guadalupe Sosa MD Primary Care Provider [phone] Sena Dominguez Unavailable [phone] Levy Barry MD Primary Care Provider [phone] Source Comments The information that you have [...] [facility] ([facility]) Encounter Details Date Type Department Care Team (Late st Contact Info) Description 03/29/2016 Historical Note [facility] Liquid[employer]ass System Devyn Vásquez MD [address] [place] [address] [phone] Social History Tobacco Use Types Packs/Day Years [...] LEATHA CARRILLO - [facility] [address] [facility] [address]30 [place] [phone] Brenda Clay MD 2315 [facility] [address] [place] [phone] 04/15/2026 10:00 AM EDT Office Visit [facility] + [facility] [address] [facility] [address] [place] [phone] Sena Dominguez PA 4247 [facility] [place] [address] documented as of this encounter Visit Diagnoses Not on filedocumented in this encounter Care Teams Solder Making Supervisor Relationship Specialty Start Date End Date Meme Steel MD [address] [place] [address] 105 [place] [address] PCP - General Pediatrics 06/05/18 04/25/22 No Pcp, Pcp PCP - General 06/08/22 07/19/22 Guadalupe Mcbride MD PCP - General Family Medicine 07/20/22 11/01/23 Sena Dominguez PA [address] [place] [address] [place] [address] PCP - BRADY Physician Aircraft Charter Dispatcher 11/02/23 Levy Barry MD [address] [place] [address] [place] [address] PCP - General Family Medicine 12/20/23 documented as of this encounter
--- OUTSIDE RECORDS SUMMARY | 2025-09-18 11:40 | XMS_ITS | Encounter Summary ---
Author Organization [facility] work ([facility]) Address [address] [place] [address] Care Team Providers Care Mechanical Repair Worker Name Role Phone Meme Steel MD Primary Care Provider [phone] Pcp, Pcp Primary Care Provider Guadalupe Sosa MD Primary Care Provider [phone] Sena Dominguez Unavailable [phone] Levy Barry MD Primary Care Provider [phone] Source Comments The information that you have [...] contact the sender immediately.[facility] ([facility]) Encounter Details Date Type Department Care Team (Late st Contact Info) Description 05/12/2005 Historical Note [facility] Wellbe[employer] System Devyn Vásquez MD [address] [place] [address] [phone] Social History Tobacco Use Types Packs/Day Years [...] LEATHA CARRILLO - [facility] 2315 [facility] G30 [place] [phone] Brenda Clay MD 2315 [facility] [address] [place] [phone] 04/15/2026 10:00 AM EDT Office Visit [facility] at [facility] + [facility] 4247 [facility] 105 [place] [phone] Sena Dominguez PA 4247 [facility] [place] [address] documented as of this encounter Visit Diagnoses Not on filedocumented in this encounter Care Teams Mechanical Repair Worker Relationship Specialty Start Date End Date Meme Steel MD [address] [place] [address] 105 [place] [address] PCP - General Pediatrics 06/05/18 04/25/22 No Pcp, Pcp PCP - General 06/08/22 07/19/22 Guadalupe Mcbride MD PCP - General Family Medicine 07/20/22 11/01/23 Sena Dominguez PA [address] [place] [address] [place] [address] PCP - BRADY Physician Corporate Travel Agent 11/02/23 Levy Barry MD [address] [place] [address] [place] [address] PCP - General Family Medicine 12/20/23 documented as of this encounter
--- OUTSIDE RECORDS SUMMARY | 2025-09-18 11:40 | XMS_ITS | Encounter Summary ---
Author Organization [facility] work ([facility]) Address [address] [place] [address] Care Team Providers Care Business Solutions Architect Name Role Phone Meme Steel MD Primary Care Provider [phone] Pcp, Pcp Primary Care Provider Guadalupe Sosa MD Primary Care Provider [phone] Sena Dominguez Unavailable [phone] Levy Barry MD Primary Care Provider [phone] Source Comments The information that you have received may contain highly confidential and/or federally protected health information. This information has been disclosed to you from records protected by [facility]. The law prohibits you from making [...] Contact Info) Description 06/14/2011 Historical Note [facility] [employer] System Devyn Vásquez MD [address] [place] [address] [phone] Social History Tobacco Use Types Packs/Day Years Used Date Smoking Tobacco: Never Assessed Comments Unknown Sex and Gender Information Value Date Recorded Sex Assigned at Not on file Legal Sex Female 1:04 AM EDT Gender Identity Not on file Sexual Orientation Not on file documented as of this encounter Plan of Treatment Upcoming Encounters Date Type Department Care Team ([facility] st Contact Info) Description 10/10/2025 10:00 AM EST Office Visit LEATHA CARRILLO - [facility] 2315 [facility] G30 [place] [phone] Brenda Clay MD 2315 [facility] [address] [place] [phone] 04/15/2026 10:00 AM EDT Office Visit [facility] at [facility] + [facility] 4247 [facility] 105 [place] [phone] Sena Dominguez PA 4247 [facility] [place] [address] documented as of this encounter Visit Diagnoses Not on filedocumented in this encounter Care Teams Business Solutions Architect Relationship Specialty Start Date End Date Meme Steel MD [address] [place] [address] 105 [place] [address] PCP - General Pediatrics 06/05/18 04/25/22 No Pcp, Pcp PCP - General 06/08/22 07/19/22 Guadalupe Mcbride MD PCP - General Family Medicine 07/20/22 11/01/23 Sena Dominguez PA [address] [place] [address] [place] [address] PCP - BRADY Physician Production Control Coordinator 11/02/23 Levy Barry MD [address] [place] [address] [place] [address] PCP - General Family Medicine 12/20/23 documented as of this encounter
--- OUTSIDE RECORDS SUMMARY | 2025-09-18 11:40 | XMS_ITS | Encounter Summary ---
Author Organization [facility] work ([facility]) Address [address] [place] [address] Care Team Providers Care Broiler Supervisor Name Role Phone Meme Steel MD Primary Care Provider [phone] Pcp, Pcp Primary Care Provider Guadalupe Sosa MD Primary Care Provider [phone] Sena Dominguez Unavailable [phone] Levy Barry MD Primary Care Provider [phone] Source Comments The information that you have [...] please contact the sender immediately.[facility] ([facility]) Encounter Details Date Type Department Care Team (Late st Contact Info) Description 03/21/2016 Historical Note [facility] [employer] System Devyn Vásquez MD [address] [place] [address] [phone] Social History Tobacco Use Types Packs/Day Years Used Date Smoking Tobacco: Never Assessed Comments Unknown Sex and Gender Information Value Date Recorded Sex Assigned at Not on file Legal Sex Female 1:04 AM EDT Gender Identity Not on file Sexual Orientation Not on file documented as of this encounter Plan of Treatment Upcoming Encounters Date Type Department Care Team ([facility] st Contact Info) Description 10/10/2025 10:00 AM EST Office Visit LEATHA CARRILLO - [facility] [address] [facility] [address]30 [place] [phone] Brenda Clay MD 2315 [facility] [address] [place] [phone] 04/15/2026 10:00 AM EDT Office Visit [facility]HA [facility] at [facility] + [facility] [address] [facility] 105 [place] [phone] Sena Dominguez PA 4247 [facility] [place] [address] documented as of this encounter Visit Diagnoses Not on filedocumented in this encounter Care Teams Broiler Supervisor Relationship Specialty Start Date End Date Meme Steel MD [address] [place] [address] 105 [place] [address] PCP - General Pediatrics 06/05/18 04/25/22 No Pcp, Pcp PCP - General 06/08/22 07/19/22 Guadalupe Mcbride MD PCP - General Family Medicine 07/20/22 11/01/23 Sena Dominguez PA [address] [place] [address] [place] [address] PCP - BRADY Physician Oven Heater 11/02/23 Levy Barry MD [address] [place] [address] [place] [address] PCP - General Family Medicine 12/20/23 documented as of this encounter
--- OUTSIDE RECORDS SUMMARY | 2025-09-18 11:40 | XMS_ITS | Encounter Summary ---
Author Organization [facility] work ([facility]) Address [address] [place] [address] Care Team Providers Care Commissioning Agent Name Role Phone Meme Steel MD Primary Care Provider [phone] Pcp, Pcp Primary Care Provider Guadalupe Sosa MD Primary Care Provider [phone] Sena Dominguez Unavailable [phone] Lvey Barry MD Primary Care Provider [phone] Source Comments The information that you have received may contain highly confidential and/or federally protected health information. This information has been disclosed to you from records protected by [facility]. The law prohibits you [...] the sender immediately.[facility] ([facility]) Encounter Details Date Type Department Care Team (Late st Contact Info) Description 05/31/2005 Historical Note [facility] [employer] System Devyn Vásquez MD [address] [place] [address] [phone] Social History Tobacco Use Types Packs/Day Years Used Date Smoking Tobacco: Never Assessed Comments Unknown Sex and Gender Information Value Date Recorded Sex Assigned at Not on file Legal Sex Female 1:04 AM EDT Gender Identity Not on file Sexual Orientation Not on file documented as of this encounter Plan of Treatment Upcoming Encounters Date Type Department Care Team ([facility] st Contact Info) Description 10/10/2025 10:00 AM EST Office Visit LEATHA CARRILLO - [facility] 2315 [facility] G30 [place] [phone] Brenda Clay MD 2315 [facility] [address] [place] [phone] 04/15/2026 10:00 AM EDT Office Visit LE[facility]HA [facility] at [facility] + [facility] 4247 [facility] 105 [place] [phone] Sena Dominguez PA 4247 [facility] [place] [address] documented as of this encounter Visit Diagnoses Not on filedocumented in this encounter Care Teams Commissioning Agent Relationship Specialty Start Date End Date Meme Steel MD [address] [place] [address] 105 [place] [address] PCP - General Pediatrics 06/05/18 04/25/22 No Pcp, Pcp PCP - General 06/08/22 07/19/22 Guadalupe Mcbride MD PCP - General Family Medicine 07/20/22 11/01/23 Sena Dominguez PA [address] [place] [address] [place] [address] PCP - BRADY Physician Shoulder Joiner 11/02/23 Levy Barry MD [address] [place] [address] [place] [address] PCP - General Family Medicine 12/20/23 documented as of this encounter
--- OUTSIDE RECORDS SUMMARY | 2025-09-18 11:40 | XMS_ITS | Encounter Summary ---
Author Organization [facility] work ([facility]) Address [address] [place] [address] Care Team Providers Care Chopper Feeder Name Role Phone Meme Steel MD Primary Care Provider [phone] Pcp, Pcp Primary Care Provider Guadalupe Sosa MD Primary Care Provider [phone] Sena Dominguez Unavailable [phone] Levy Barry MD Primary Care Provider [phone] Source Comments The information that you have [...] contact the sender immediately.[facility] ([facility]) Encounter Details Date Type Department Care Team (Late st Contact Info) Description 06/20/2005 Historical Note [facility] [employer] System Devyn Vásquez MD [address] [place] [address] [phone] Social History Tobacco Use Types Packs/Day Years [...] CARRILLO - [facility] 2315 [facility] G30 [place] [phone] Brenda Clay MD 2315 [facility] [address] [place] [phone] 04/15/2026 10:00 AM EDT Office Visit LE[facility]HA [facility] at [facility] + [facility] 4247 [facility] 105 [place] [phone] Sena Dominguez PA 4247 [facility] [place] [address] documented as of this encounter Visit Diagnoses Not on filedocumented in this encounter Care Teams Chopper Feeder Relationship Specialty Start Date End Date Meme Steel MD [address] [place] [address] 105 [place] [address] PCP - General Pediatrics 06/05/18 04/25/22 No Pcp, Pcp PCP - General 06/08/22 07/19/22 Guadalupe Mcbride MD PCP - General Family Medicine 07/20/22 11/01/23 Sena Dominguez PA [address] [place] [address] [place] [address] PCP - BRADY Physician Director Of Primary Care 11/02/23 Levy Barry MD [address] [place] [address] [place] [address] PCP - General Family Medicine 12/20/23 documented as of this encounter
--- OUTSIDE RECORDS SUMMARY | 2025-09-18 11:40 | XMS_ITS | Encounter Summary ---
Author Organization [facility] work ([facility]) Address [address] [place] [address] Care Team Providers Care Community Manager Name Role Phone Meme Steel MD Primary Care Provider [phone] Pcp, Pcp Primary Care Provider Guadalupe Sosa MD Primary Care Provider [phone] Sena Dominguez Unavailable Levy Barry MD Primary Care Provider [phone] Source Comments The information that you have [...] [facility] ([facility]) Encounter Details Date Type Department Care Team (Late st Contact Info) Description 05/18/2011 Historical Note [facility] DataS[employer] System Devyn Vásquez MD [address] [place] [address] [phone] Social History Tobacco Use Types Packs/Day Years [...] Visit LEATHA CARRILLO - [facility] 2315 [facility] G30 [place] [phone] Brenda Clay MD 2315 [facility] [address] [place] [phone] 04/15/2026 10:00 AM EDT Office Visit LEATHA [facility] at [facility] + [facility] 4247 [facility] 105 [place] [phone] Sena Dominguez PA 4[address] [facility] [place] [address] documented as of this encounter Visit Diagnoses Not on filedocumented in this encounter Care Teams Community Manager Relationship Specialty Start Date End Date Meme Steel MD [address] [place] [address] 105 [place] [address] PCP - General Pediatrics 06/05/18 04/25/22 No Pcp, Pcp PCP - General 06/08/22 07/19/22 Guadalupe Mcbride MD PCP - General Family Medicine 07/20/22 11/01/23 Sena Dominguez PA [address] [place] [address] [place] [address] PCP - BRADY Physician Freight Booker 11/02/23 Levy Barry MD [address] [place] [address] [place] [address] PCP - General Family Medicine 12/20/23 documented as of this encounter
--- OUTSIDE RECORDS SUMMARY | 2025-09-18 11:40 | XMS_ITS | Encounter Summary ---
Author Organization [facility] work ([facility]) Address [address] [place] [address] Care Team Providers Care Garden Implement Mechanic Name Role Phone Meme Steel MD Primary Care Provider [phone] Pcp, Pcp Primary Care Provider Guadalupe Sosa MD Primary Care Provider [phone] Sena Dominguez Unavailable [phone] Levy Barry MD Primary Care Provider [phone] Source Comments The information that you have received may contain highly confidential and/or federally protected health information. This information has been disclosed to you from records protected by [facility]. The law prohibits you from making [...] contact the sender immediately.[facility] ([facility]) Encounter Details Date Type Department Care Team (Late st Contact Info) Description 09/01/2016 Historical Note [facility] [employer] System Devyn Vásquez MD [address] [place] [address] [phone] Social History Tobacco Use Types Packs/Day Years [...] CARRILLO - [facility] 2315 [facility] G30 [place] [phone] Brenda Clay MD 2315 [facility] [address] [place] [phone] 04/15/2026 10:00 AM EDT Office Visit LEATHA [facility] at [facility] + [facility] 4247 [facility] 105 [place] [phone] Sena Dominguez PA 4247 [facility] [place] [address] documented as of this encounter Visit Diagnoses Not on filedocumented in this encounter Care Teams Garden Implement Mechanic Relationship Specialty Start Date End Date Meme Steel MD [address] [place] [address] 105 [place] [address] PCP - General Pediatrics 06/05/18 04/25/22 No Pcp, Pcp PCP - General 06/08/22 07/19/22 Guadalupe Mcbride MD PCP - General Family Medicine 07/20/22 11/01/23 Sena Dominguez PA [address] [place] [address] [place] [address] PCP - BRADY Physician Wood Heel Fitter Machine 11/02/23 Levy Barry MD [address] [place] [address] [place] [address] PCP - General Family Medicine 12/20/23 documented as of this encounter
--- OUTSIDE RECORDS SUMMARY | 2025-09-18 11:40 | XMS_ITS | Encounter Summary ---
Author Organization [facility] work ([facility]) Address [address] [facility] [address] [facility] [address] [place] [address] Care Team Providers Care Tow Motor Driver Name Role Phone Meme Steel MD Primary Care Provider [phone] Pcp, Pcp Primary Care Provider Guadalupe Sosa MD Primary Care Provider [phone] Sena Dominguez Unavailable [phone] Levy Barry MD Primary Care Provider [phone] Source Comments The information that you have received may contain highly confidential and/or federally protected health information. This information has been disclosed to you from records protected by [facility]. The law prohibits you from [...] please contact the sender immediately.[facility] ([facility]) Encounter Details Date Type Department Care Team (Late st Contact Info) Description 11/21/2005 Historical Note [facility] [employer] System Devyn Vásquez MD [address] [place] [address] [phone] Social History Tobacco Use Types Packs/Day Years [...] CARRILLO - [facility] 2315 [facility] G30 [place] [phone] Brenda Clay MD 2315 [facility] [address] [place] [phone] 04/15/2026 10:00 AM EDT Office Visit LEATHA [facility] at [facility] + [facility] 4247 [facility] 105 [place] [phone] Sena Dominguez PA 4247 [facility] [place] [address] documented as of this encounter Visit Diagnoses Not on filedocumented in this encounter Care Teams Tow Motor Driver Relationship Specialty Start Date End Date Meme Steel MD [address] [place] [address] 105 [place] [address] PCP - General Pediatrics 06/05/18 04/25/22 No Pcp, Pcp PCP - General 06/08/22 07/19/22 Guadalupe Mcbride MD PCP - General Family Medicine 07/20/22 11/01/23 Sena Dominguez PA [address] [place] [address] [place] [address] PCP - BARDY Physician Display Screen Fabricator 11/02/23 Levy Barry MD [address] [place] [address] [place] [address] PCP - General Family Medicine 12/20/23 documented as of this encounter
--- OUTSIDE RECORDS SUMMARY | 2025-09-18 11:40 | XMS_ITS | Encounter Summary ---
Author Organization [facility] work ([facility]) Address [address] [place] [address] Care Team Providers Care Director Of Catering Name Role Phone Meme Steel MD Primary Care Provider [phone] Pcp, Pcp Primary Care Provider Guadalupe Soas MD Primary Care Provider [phone] Sena Dominguez Unavailable [phone] Levy Barry MD Primary Care Provider [...] please contact the sender immediately.[facility] ([facility]) Encounter Details Date Type Department Care Team (Late st Contact Info) Description 06/02/2005 Historical Note [facility] Panor[employer] Education System Devyn Vásquez MD [address] [place] [address] [phone] Social History Tobacco Use Types Packs/Day Years [...] Visit LEATHA CARRILLO - [facility] 2315 [facility] G30 [place] [phone] Brenda Clay MD 2315 [facility] [address] [place] [phone] 04/15/2026 10:00 AM EDT Office Visit LEATHA [facility] at [facility] + [facility] 4247 [facility] 105 [place] [phone] Sena Dominguez PA 4247 [facility] [place] [address] documented as of this encounter Visit Diagnoses Not on filedocumented in this encounter Care Teams Director Of Catering Relationship Specialty Start Date End Date Meme Steel MD [address] [place] [address] 105 [place] [address] PCP - General Pediatrics 06/05/18 04/25/22 No Pcp, Pcp PCP - General 06/08/22 07/19/22 Guadalupe Mcbride MD PCP - General Family Medicine 07/20/22 11/01/23 Sena Dominguez PA [address] [place] [address] [place] [address] PCP - BRADY Physician Scallop Cutter 11/02/23 Levy Barry MD [address] [place] [address] [place] [address] PCP - General Family Medicine 12/20/23 documented as of this encounter
--- OUTSIDE RECORDS SUMMARY | 2025-09-18 11:40 | XMS_ITS | Encounter Summary ---
Author Organization [facility] work ([facility]) Address [address] [place] [address] Care Team Providers Care Business Continuity Director Name Role Phone Meme Steel MD Primary Care Provider [phone] Pcp, Pcp Primary Care Provider Guadalupe Sosa MD Primary Care Provider [phone] Sena Dominguez Unavailable [phone] Levy Barry MD Primary Care Provider [phone] Source Comments The information that you have received may contain highly confidential and/or federally protected health information. This information has been disclosed to you from records protected by [facility]. The law prohibits you from making [...] sender immediately.[facility] ([facility]) Encounter Details Date Type Department Care Team (Late st Contact Info) Description 07/13/2016 Historical Note [facility] Oncopeptides System Devyn Vásquez MD [address] [place] [address] [phone] Social History Tobacco Use Types Packs/Day Years [...] Office Visit LEATHA CARRILLO - [facility] 2315 [facility] [address]30 [place] [phone] Brenda Clay MD 2315 [facility] [address] [place] [phone] 04/15/2026 10:00 AM EDT Office Visit [facility] + [facility] 4247 [facility] 105 [place] [phone] Sena Dominguez PA 4247 [facility] [place] [address] documented as of this encounter Visit Diagnoses Not on filedocumented in this encounter Care Teams Business Continuity Director Relationship Specialty Start Date End Date Meme Steel MD [address] [place] [address] 105 [place] [address] PCP - General Pediatrics 06/05/18 04/25/22 No Pcp, Pcp PCP - General 06/08/22 07/19/22 Guadalupe Mcbride MD PCP - General Family Medicine 07/20/22 11/01/23 Sena Dominguez PA [address] [place] [address] [place] [address] PCP - BRADY Physician Hvac Manager 11/02/23 Levy Barry MD [address] [place] [address] [place] [address] PCP - General Family Medicine 12/20/23 documented as of this encounter
--- OUTSIDE RECORDS SUMMARY | 2025-09-18 11:40 | XMS_ITS | Encounter Summary ---
Author Organization [facility] work ([facility]) Address [address] [place] [address] Care Team Providers Care Real Property Appraiser Name Role Phone Meme Steel MD Primary Care Provider [phone] Pcp, Pcp Primary Care Provider Guadalupe Sosa MD Primary Care Provider [phone] Sena Dominguez Unavailable [phone] Levy Barry MD Primary Care Provider [phone] Source Comments The information that you have [...] error, please contact the sender immediately[facility] ([facility]) Encounter Details Date Type Department Care Team (Late st Contact Info) Description 09/10/2009 Historical Note [facility] Core Audio Technology System Devyn Vásquez MD [address] [place] [address] [phone] Social History Tobacco Use Types Packs/Day Years [...] [facility] [address] [facility] [address] [place] [phone] Brenda Clay MD 2315 [facility] [address] [place] [phone] 04/15/2026 10:00 AM EDT Office Visit [facility]HA [facility] + [facility] 4247 [facility] 105 [place] [phone] Sena Dominguez PA 4247 [facility] [place] [address] documented as of this encounter Visit Diagnoses Not on filedocumented in this encounter Care Teams Real Property Appraiser Relationship Specialty Start Date End Date Meme Steel MD [address] [place] [address] 105 [place] [address] PCP - General Pediatrics 06/05/18 04/25/22 No Pcp, Pcp PCP - General 06/08/22 07/19/22 Guadalupe Mcbride MD PCP - General Family Medicine 07/20/22 11/01/23 Sena Dominguez PA [address] [place] [address] [place] [address] PCP - BRADY Physician Deck Worker 11/02/23 Levy Barry MD [address] [place] [address] [place] [address] PCP - General Family Medicine 12/20/23 documented as of this encounter
--- OUTSIDE RECORDS SUMMARY | 2025-09-18 11:40 | XMS_ITS | Encounter Summary ---
Author Organization [facility] work ([facility]) Address [address] [place] [address] Care Team Providers Care Carbon Capture Power Plant Manager Name Role Phone Meme Steel MD Primary Care Provider No Pcp, Pcp Primary Care Provider Guadalupe Sosa MD Primary Care Provider [phone] Sena Dominguez Unavailable [phone] Levy Barry MD Primary Care Provider [phone] Source Comments The information that you have received may contain highly confidential and/or federally protected health information. This information has been disclosed to you from records protected by [facility]. The law prohibits you from [...] please contact the sender immediately.[facility] ([facility]) Encounter Details Date Type Department Care Team (Late st Contact Info) Description 09/08/2011 Historical Note [facility] Einspect System Devyn Vásquez MD [address] [place] [address] [phone] Social History Tobacco Use Types Packs/Day Years [...] LEATHA CARRILLO - [facility] [address] [facility] [address] [place] [phone] Brenda Clay MD 2315 [facility] [address] [place] [phone] 04/15/2026 10:00 AM EDT Office Visit [facility]HA [facility] + [facility] 4247 [facility] 105 [place] [phone] Sena Dominguez PA 4247 [facility] [place] [address] documented as of this encounter Visit Diagnoses Not on filedocumented in this encounter Care Teams Carbon Capture Power Plant Manager Relationship Specialty Start Date End Date Meme Steel MD [address] [place] [address] 105 [place] [address] PCP - General Pediatrics 06/05/18 04/25/22 No Pcp, Pcp PCP - General 06/08/22 07/19/22 Guadalupe Mcbride MD PCP - General Family Medicine 07/20/22 11/01/23 Sena Dominguez PA [address] [place] [address] [place] [address] PCP - BRADY Physician Web Development Instructor 11/02/23 Levy Barry MD [address] [place] [address] [place] [address] PCP - General Family Medicine 12/20/23 documented as of this encounter
--- OUTSIDE RECORDS SUMMARY | 2025-09-18 11:40 | XMS_ITS | Encounter Summary ---
Author Organization [facility] work ([facility]) Address [address] [place] [address] Care Team Providers Care Life Enrichment Manager Name Role Phone Meme Steel MD Primary Care Provider [phone] Pcp, Pcp Primary Care Provider Guadalupe Sosa MD Primary Care Provider [phone] Sena Dominguez Unavailable [phone] Levy Barry MD Primary Care Provider [phone] Source Comments The information that you have [...] contact the sender immediately.[facility] ([facility]) Encounter Details Date Type Department Care Team (Late st Contact Info) Description 05/31/2005 Historical Note [facility] Asker System Devyn Vásquez MD [address] [place] [address] [phone] Social History Tobacco Use Types Packs/Day Years [...] LEATHA CARRILLO - [facility] 23[address] [facility] [address] [place] [phone] Brenda Clay MD 2315 [facility] [address] [place] [phone] 04/15/2026 10:00 AM EDT Office Visit [facility] + [facility] 4247 [facility] 105 [place] [phone] Sena Dominguez PA 4247 [facility] [place] [address] documented as of this encounter Visit Diagnoses Not on filedocumented in this encounter Care Teams Life Enrichment Manager Relationship Specialty Start Date End Date Meme Steel MD [address] [place] [address] 105 [place] [address] PCP - General Pediatrics 06/05/18 04/25/22 No Pcp, Pcp PCP - General 06/08/22 07/19/22 Guadalupe Mcbride MD PCP - General Family Medicine 07/20/22 11/01/23 Sena Dominguez PA [address] [place] [address] [place] [address] PCP - BRADY Physician Auto Adjudication Specialist 11/02/23 Levy Barry MD [address] [place] [address] [place] [address] PCP - General Family Medicine 12/20/23 documented as of this encounter
--- OUTSIDE RECORDS SUMMARY | 2025-09-18 11:40 | XMS_ITS | Encounter Summary ---
Author Organization [facility] work ([facility]) Address [address] [place] [address] Care Team Providers Care Hospice Nurse Practitioner Name Role Phone Meme Steel MD Primary Care Provider [phone] Pcp, Pcp Primary Care Provider Guadalupe Sosa MD Primary Care Provider [phone] Sena Dominguez Unavailable [phone] Levy Barry MD Primary Care Provider [phone] Source Comments The information that you have received may contain highly confidential and/or federally protected health information. This information has been disclosed to you from records protected by [facility]. The law prohibits you from making [...] please contact the sender immediately.[facility] ([facility]) Encounter Details Date Type Department Care Team (Late st Contact Info) Description 06/02/2005 Historical Note [facility] RedVision System System Devyn Vásquez MD [address] [place] [address] [phone] Social History Tobacco Use Types Packs/Day Years [...] Office Visit LEATHA CARRILLO - [facility] [address] [facility] [address] [place] [phone] Brenda Clay MD 2315 [facility] [address] [place] [phone] 04/15/2026 10:00 AM EDT Office Visit [facility]HA [facility] + [facility] 4247 [facility] 105 [place] [phone] Sena Dominguez PA 4247 [facility] [place] [address] documented as of this encounter Visit Diagnoses Not on filedocumented in this encounter Care Teams Hospice Nurse Practitioner Relationship Specialty Start Date End Date Meme Steel MD [address] [place] [address] 105 [place] [address] PCP - General Pediatrics 06/05/18 04/25/22 No Pcp, Pcp PCP - General 06/08/22 07/19/22 Guadalupe Mcbride MD PCP - General Family Medicine 07/20/22 11/01/23 Sena Dominguez PA [address] [place] [address] [place] [address] PCP - BRADY Physician Masonry Contractor 11/02/23 Levy Barry MD [address] [place] [address] [place] [address] PCP - General Family Medicine 12/20/23 documented as of this encounter
--- OUTSIDE RECORDS SUMMARY | 2025-09-18 11:41 | XMS_ITS | Encounter Summary ---
Author Organization [facility] work ([facility]) Address [address] [place] [address] Care Team Providers Care Director For Beauty School Name Role Phone Meme Steel MD Primary Care Provider [phone] Pcp, Pcp Primary Care Provider Guadalupe Sosa MD Primary Care Provider [phone] Sena Dominguez Unavailable [phone] Levy Barry MD Primary Care Provider [phone] Source Comments The information that you have [...] contact the sender immediately.[facility] ([facility]) Encounter Details Date Type Department Care Team (Late st Contact Info) Description 06/30/2005 Historical Note [facility] Violet System Devyn Vásquez MD [address] [place] [address] [phone] Social History Tobacco Use Types Packs/Day Years [...] LEATHA CARRILLO - [facility] 2315 [facility] [address]30 [place] [phone] Brenda Clay MD 2315 [facility] [address] [place] [phone] 04/15/2026 10:00 AM EDT Office Visit [facility]HA [facility] + [facility] 4247 [facility] 105 [place] [phone] Sena Dominguez PA 4247 [facility] [place] [address] documented as of this encounter Visit Diagnoses Not on filedocumented in this encounter Care Teams Director For Beauty School Relationship Specialty Start Date End Date Meme Steel MD [address] [place] [address] 105 [place] [address] PCP - General Pediatrics 06/05/18 04/25/22 No Pcp, Pcp PCP - General 06/08/22 07/19/22 Guadalupe Mcbride MD PCP - General Family Medicine 07/20/22 11/01/23 Sena Dominguez PA [address] [place] [address] [place] [address] PCP - BRADY Physician Local Company Hazmat Driver 11/02/23 Levy Barry MD [address] [place] [address] [place] [address] PCP - General Family Medicine 12/20/23 documented as of this encounter
--- OUTSIDE RECORDS SUMMARY | 2025-09-18 11:41 | XMS_ITS | Encounter Summary ---
Author Organization [facility] work ([facility] Address [address] [place] [address] Care Team Providers Care Director Of Corporate Strategy Name Role Phone Meme Steel MD Primary Care Provider [phone] Pcp, Pcp Primary Care Provider Guadalupe Sosa MD Primary Care Provider [phone] Sena Dominguez Unavailable [phone] Levy Barry MD Primary Care Provider [phone] Source Comments The information that you have [...] contact the sender immediately.[facility] ([facility] Encounter Details Date Type Department Care Team (Late st Contact Info) Description 08/17/2010 Historical Note [facility] ADmantX System Devyn Vásquez MD [address] [place] [address] [phone] Social History Tobacco Use Types Packs/Day Years Used Date Smoking Tobacco: Never Assessed Comments Unknown Sex and Gender Information Value Date Recorded Sex Assigned at Not on file Legal Sex Female 1:04 AM EDT Gender Identity Not on file Sexual Orientation Not on file documented as of this encounter Plan of Treatment Upcoming Encounters Date Type Department Care Team ([facility] st Contact Info) Description 10/10/2025 10:00 AM EST Office Visit LEATHA CARRILLO - [facility] [address] [facility] [address] [place] [phone] Brenda Clay MD 2315 [facility] [address] [place] [phone] 04/15/2026 10:00 AM EDT Office Visit LEATHA [facility] + [facility] 4247 [facility] 105 [place] [phone] Sena Dominguez PA 4247 [facility] [place] [address] documented as of this encounter Visit Diagnoses Not on filedocumented in this encounter Care Teams Director Of Corporate Strategy Relationship Specialty Start Date End Date Meme Steel MD [address] [place] [address] 105 [place] [address] PCP - General Pediatrics 06/05/18 04/25/22 No Pcp, Pcp PCP - General 06/08/22 07/19/22 Guadalupe Mcbride MD PCP - General Family Medicine 07/20/22 11/01/23 Sena Dominguez PA [address] [place] [address] [place] [address] PCP - BRADY Physician Gaming Cage Cashier 11/02/23 Levy Barry MD [address] [place] [address] [place] [address] PCP - General Family Medicine 12/20/23 documented as of this encounter
--- OUTSIDE RECORDS SUMMARY | 2025-09-18 11:41 | XMS_ITS | Encounter Summary ---
Author Organization [facility] work ([facility]) Address [address] [place] [address] Care Team Providers Care String Studies Director Name Role Phone Meme Steel MD Primary Care Provider [phone] Pcp, Pcp Primary Care Provider Guadalupe Sosa MD Primary Care Provider [phone] Sena Dominguez Unavailable [phone] Levy Barry MD Primary Care Provider [phone] Source Comments The information that you have received may contain highly confidential and/or federally protected health information. This information has been disclosed to you from records protected by [facility]. The law prohibits you from making [...] contact the sender immediately.[facility] ([facility]) Encounter Details Date Type Department Care Team (Late st Contact Info) Description 01/16/2017 Historical Note [facility] T1 Visions System Devyn Vásquez MD [address] [place] [address] [phone] Social History Tobacco Use Types Packs/Day Years [...] LEATHA CARRILLO - [facility] [address] [facility] G30 [place] [phone] Brenda Clay MD 2315 [facility] [address] [place] [phone] 04/15/2026 10:00 AM EDT Office Visit LE[facility]HA [facility] + [facility] 4247 [facility] 105 [place] [phone] Sena Dominguez PA 4247 [facility] [place] [address] documented as of this encounter Visit Diagnoses Not on filedocumented in this encounter Care Teams String Studies Director Relationship Specialty Start Date End Date Meme Steel MD [address] [place] [address] 105 [place] [address] PCP - General Pediatrics 06/05/18 04/25/22 No Pcp, Pcp PCP - General 06/08/22 07/19/22 Guadalupe Mcbride MD PCP - General Family Medicine 07/20/22 11/01/23 Sena Dominguez PA [address] [place] [address] [place] [address] PCP - BRADY Physician Science Writer 11/02/23 Levy Barry MD [address] [place] [address] [place] [address] PCP - General Family Medicine 12/20/23 documented as of this encounter
--- OUTSIDE RECORDS SUMMARY | 2025-09-18 11:41 | XMS_ITS | Encounter Summary ---
Author Organization [facility] work ([facility]) Address [address] [facility] [address] [place] [address] Care Team Providers Care Operations Leader Name Role Phone Meme Steel MD Primary Care Provider [phone] Pcp, Pcp Primary Care Provider Guadalupe Sosa MD Primary Care Provider [phone] Sena Dominguez Unavailable [phone] Levy Barry MD Primary Care Provider [...] please contact the sender immediately.[facility] ([facility]) Encounter Details Date Type Department Care Team (Late st Contact Info) Description 02/06/2010 Historical Note [facility] DARA BioSciences System Devyn Vásquez MD [address] [place] [address] [phone] Social History Tobacco Use Types Packs/Day Years [...] LEATHA CARRILLO - [facility] 2315 [facility] [address] [place] [phone] Brenda Clay MD 2315 [facility] [address] [place] [phone] 04/15/2026 10:00 AM EDT Office Visit [facility] + [facility] [address] [facility] [address] [place] [phone] Sena Dominguez PA 4247 [facility] [place] [address] documented as of this encounter Visit Diagnoses Not on filedocumented in this encounter Care Teams Operations Leader Relationship Specialty Start Date End Date Meme Steel MD [address] [place] [address] 105 [place] [address] PCP - General Pediatrics 06/05/18 04/25/22 No Pcp, Pcp PCP - General 06/08/22 07/19/22 Guadalupe Mcbride MD PCP - General Family Medicine 07/20/22 11/01/23 Sena Dominguez PA [address] [place] [address] [place] [address] PCP - BRADY Physician Hedis Analyst 11/02/23 Levy Barry MD [address] [place] [address] [place] [address] PCP - General Family Medicine 12/20/23 documented as of this encounter
--- OUTSIDE RECORDS SUMMARY | 2025-09-18 11:41 | XMS_ITS | Encounter Summary ---
Author Organization [facility] work ([facility]) Address [address] [place] [address] Care Team Providers Care Warehouse Examiner Name Role Phone Meme Steel MD Primary Care Provider [phone] Pcp, Pcp Primary Care Provider Guadalupe Sosa MD Primary Care Provider [phone] Sena Dominguez Unavailable [phone] Levy aBrry MD Primary Care Provider [phone] Source Comments The information that you have [...] error, please contact the sender immediately.[facility] ([facility]) Encounter Details Date Type Department Care Team (Late st Contact Info) Description 10/27/2016 Historical Note [facility] StudyCloud System Devyn Vásquez MD [address] [place] [address] [phone] Social History Tobacco Use Types Packs/Day Years [...] [facility] 2315 [facility] [address]30 [place] [phone] Brenda Clay MD [address] [facility] [address] [place] [address] 04/15/2026 10:00 AM EDT Office Visit [facility] 4247 [facility] 105 [place] [phone] Sena Dominguez PA 4247 [facility] [place] [address] documented as of this encounter Visit Diagnoses Not on filedocumented in this encounter Care Teams Warehouse Examiner Relationship Specialty Start Date End Date Meme Steel MD [address] [place] [address] 105 [place] [address] PCP - General Pediatrics 06/05/18 04/25/22 No Pcp, Pcp PCP - General 06/08/22 07/19/22 Guadalupe Mcbride MD PCP - General Family Medicine 07/20/22 11/01/23 Sena Dominguez PA [address] [place] [address] [place] [address] PCP - BRADY Physician Account [employer] 11/02/23 Levy Barry MD [address] [place] [address] [place] [address] PCP - General Family Medicine 12/20/23 documented as of this encounter
--- OUTSIDE RECORDS SUMMARY | 2025-09-18 11:41 | XMS_ITS | Encounter Summary ---
Author Organization [facility] work ([facility]) Address [address] [place] [address] Care Team Providers Care Direct Care Specialist Name Role Phone Meme Steel MD Primary Care Provider [phone] Pcp, Pcp Primary Care Provider Guadalupe Sosa MD Primary Care Provider [phone] Sena Dominguez Unavailable [phone] Levy Barry MD Primary Care Provider [phone] Source Comments The information that you have received may contain highly confidential and/or federally protected health information. This information has been disclosed to you from records protected by [facility]. The law prohibits you from [...] contact the sender immediately.[facility] ([facility]) Encounter Details Date Type Department Care Team (Late st Contact Info) Description 03/09/2016 Historical Note [facility]G ApptheGame System Devyn Vásquez MD [address] [place] [address] [phone] Social History Tobacco Use Types Packs/Day Years [...] CARRILLO - [facility] at [facility] 2315 [facility] [address]30 [place] [phone] Brenda Clay MD 2315 [facility] [address] [place] [phone] 04/15/2026 10:00 AM EDT Office Visit [facility] + [facility] [address] [facility] 105 [place] [phone] Sena Dominguez PA 4[address] [facility] [place] [address] documented as of this encounter Visit Diagnoses Not on filedocumented in this encounter Care Teams Direct Care Specialist Relationship Specialty Start Date End Date Meme Steel MD [address] [place] [address] 105 [place] [address] PCP - General Pediatrics 06/05/18 04/25/22 No Pcp, Pcp PCP - General 06/08/22 07/19/22 Guadalupe Mcbride MD PCP - General Family Medicine 07/20/22 11/01/23 Sena Dominguez PA [address] [place] [address] [place] [address] PCP - BRADY Physician Soil Checker 11/02/23 Levy Barry MD [address] [place] [address] [place] [address] PCP - General Family Medicine 12/20/23 documented as of this encounter
--- OUTSIDE RECORDS SUMMARY | 2025-09-18 11:41 | XMS_ITS | Encounter Summary ---
Author Organization [facility] work ([facility]) Address [address] [place] [address] Care Team Providers Care Supervisor Cold Rolling Name Role Phone Meme Steel MD Primary Care Provider [phone] Pcp, Pcp Primary Care Provider Guadalupe Sosa MD Primary Care Provider [phone] Sena Dominguez Unavailable [phone] Levy Barry MD Primary Care Provider [phone] Source Comments The information that you have received may contain highly confidential and/or federally protected health information. This information has been disclosed to you from records protected by [facility]. The law prohibits you [...] please contact the sender immediately.[facility] ([facility]) Encounter Details Date Type Department Care Team (Late st Contact Info) Description 08/30/2005 Historical Note SVMG Response Biomedical System Devyn Vásquez MD [address] [place] [address] [phone] Social History Tobacco Use Types Packs/Day Years [...] Visit LEATHA CARRILLO - [facility] 2315 [facility] G30 [place] [phone] Brenda Clay MD 2315 [facility] [address] [place] [address] 04/15/2026 10:00 AM EDT Office Visit [facility] at [facility] + [facility] 4247 [facility] 105 [place] [phone] Sena Dominguez PA 4247 [facility] [place] [address] documented as of this encounter Visit Diagnoses Not on filedocumented in this encounter Care Teams Supervisor Cold Rolling Relationship Specialty Start Date End Date Meme Steel MD [address] [place] [address] 105 [place] [address] PCP - General Pediatrics 06/05/18 04/25/22 No Pcp, Pcp PCP - General 06/08/22 07/19/22 Guadalupe Mcbride MD PCP - General Family Medicine 07/20/22 11/01/23 Sena Dominguez PA [address] [place] [address] [place] [address] PCP - BRADY Physician Cupola Tapper 11/02/23 Levy Barry MD [address] [place] [address] [place] [address] PCP - General Family Medicine 12/20/23 documented as of this encounter
--- OUTSIDE RECORDS SUMMARY | 2025-09-18 11:41 | XMS_ITS | Encounter Summary ---
Author Organization [facility] work ([facility]) Address [address] [place] [address] Care Team Providers Care Analytical Lab Technician Name Role Phone Meme Steel MD Primary Care Provider [phone] Pcp, Pcp Primary Care Provider Guadalupe Sosa MD Primary Care Provider [phone] Sena Dominguez Unavailable [phone] Levy Barry MD Primary Care Provider [phone] Source Comments The information that you have [...] sender immediately.[facility] ([facility]) Encounter Details Date Type Department Care Team (Late st Contact Info) Description 08/07/2009 Historical Note SVMG Skiipi System Devyn Vásquez MD [address] [place] [address] [phone] Social History Tobacco Use Types Packs/Day Years [...] LEATHA CARRILLO - [facility] 23[address] [facility] [address]30 [place] [phone] Brenda Clay MD 2315 [facility] [address] [place] [phone] 04/15/2026 10:00 AM EDT Office Visit [facility] at [facility] + [facility] 4247 [facility] 105 [place] [phone] Sena Dominguez PA 4247 [facility] [place] [address] documented as of this encounter Visit Diagnoses Not on filedocumented in this encounter Care Teams Analytical Lab Technician Relationship Specialty Start Date End Date Meme Steel MD [address] [place] [address] 105 [place] [address] PCP - General Pediatrics 06/05/18 04/25/22 No Pcp, Pcp PCP - General 06/08/22 07/19/22 Guadalupe Mcbride MD PCP - General Family Medicine 07/20/22 11/01/23 Sena Dominguez PA [address] [place] [address] [place] [address] PCP - BRADY Physician Manager Telemarketing 11/02/23 Levy Barry MD [address] [place] [address] [place] [address] PCP - General Family Medicine 12/20/23 documented as of this encounter
--- OUTSIDE RECORDS SUMMARY | 2025-09-18 11:41 | XMS_ITS | Encounter Summary ---
Author Organization [facility] work ([facility]) Address [address] [place] [address] Care Team Providers Care Spinning Lathe Operator Hydraulic Name Role Phone Meme Steel MD Primary Care Provider [phone] Pcp, Pcp Primary Care Provider Guadalupe Sosa MD Primary Care Provider [phone] Sena Dominguez Unavailable [phone] Levy Barry MD Primary Care Provider [phone] Source Comments The information that you have [...] please contact the sender immediately.[facility] ([facility]) Encounter Details Date Type Department Care Team (Late st Contact Info) Description 01/16/2017 Historical Note [facility]G BurudaConcert System Devyn Vásquez MD [address] [place] [address] [phone] Social History Tobacco Use Types Packs/Day Years [...] 10/10/2025 10:00 AM EST Office Visit LEATHA CRARILLO - [facility] 23[address] [facility] [address]30 [place] [phone] Brenda Clay MD 2315 [facility] [address] [place] [phone] 04/15/2026 10:00 AM EDT Office Visit [facility]HA [facility] at [facility] + [facility] 4247 [facility] 105 [place] [phone] Sena Dominguez PA 4247 [facility] [place] [address] documented as of this encounter Visit Diagnoses Not on filedocumented in this encounter Care Teams Spinning Lathe Operator Hydraulic Relationship Specialty Start Date End Date Meme Steel MD [address] [place] [address] 105 [place] [address] PCP - General Pediatrics 06/05/18 04/25/22 No Pcp, Pcp PCP - General 06/08/22 07/19/22 Guadalupe Mcbride MD PCP - General Family Medicine 07/20/22 11/01/23 Sena Dominguez PA [address] [place] [address] [place] [address] PCP - BRADY Physician Mold Engraver 11/02/23 Levy Barry MD [address] [place] [address] [place] [address] PCP - General Family Medicine 12/20/23 documented as of this encounter
--- OUTSIDE RECORDS SUMMARY | 2025-09-18 11:41 | XMS_ITS | Encounter Summary ---
Author Organization [facility] work ([facility]) Address [address] [place] [address] Care Team Providers Care Ladies' Hat Trimmer Name Role Phone Meme Steel MD Primary Care Provider [phone] Pcp, Pcp Primary Care Provider Guadalupe Sosa MD Primary Care Provider [phone] Sena Dominguez Unavailable [phone] Levy Barry MD Primary Care Provider [phone] Source Comments The information that you have [...] contact the sender immediately.[facility] ([facility]) Encounter Details Date Type Department Care Team (Late st Contact Info) Description 08/23/2010 Historical Note [facility]G OpenRent System Devyn Váqsuez MD [address] [place] [address] [phone] Social History Tobacco Use Types Packs/Day Years [...] LEATHA CARRILLO - [facility] 2315 [facility] G30 [place] [phone] Brenda Clay MD 2315 [facility] [address] [place] [phone] 04/15/2026 10:00 AM EDT Office Visit [facility]HA [facility] at [facility] + [facility] [address] [facility] 105 [place] [phone] Sena Dominguez PA 4247 [facility] [place] [address] documented as of this encounter Visit Diagnoses Not on filedocumented in this encounter Care Teams Ladies' Hat Trimmer Relationship Specialty Start Date End Date Meme Steel MD [address] [place] [address] 105 [place] [address] PCP - General Pediatrics 06/05/18 04/25/22 No Pcp, Pcp PCP - General 06/08/22 07/19/22 Guadalupe Mcbride MD PCP - General Family Medicine 07/20/22 11/01/23 Sena Dominguez PA [address] [place] [address] [place] [address] PCP - BRADY Physician Marketing Automation Specialist 11/02/23 Levy Barry MD [address] [place] [address] [place] [address] PCP - General Family Medicine 12/20/23 documented as of this encounter
--- OUTSIDE RECORDS SUMMARY | 2025-09-18 11:41 | XMS_ITS | Encounter Summary ---
Author Organization [facility] work ([facility]) Address [address] [place] [address] Care Team Providers Care Svp Chief Marketing Officer Name Role Phone Meme Steel MD Primary Care Provider [phone] Pcp, Pcp Primary Care Provider Guadalupe Sosa MD Primary Care Provider [phone] Sena Dominguez Unavailable Levy Barry MD Primary Care Provider [phone] Source Comments The information that you have [...] error, please contact the sender immediately.[facility] ([facility]) Encounter Details Date Type Department Care Team (Late st Contact Info) Description 08/17/2010 Historical Note SVMG Nervana Systems System Devyn Vásquez MD [address] [place] [address] [phone] Social History Tobacco Use Types Packs/Day Years [...] [facility] 23[address] [facility] G30 [place] [phone] Brenda Clay MD 2315 [facility] [address] [place] [phone] 04/15/2026 10:00 AM EDT Office Visit [facility] at [facility] + [facility] 4247 [facility] 105 [place] [phone] Sena Dominguez PA 4[address] [facility] [place] [address] documented as of this encounter Visit Diagnoses Not on filedocumented in this encounter Care Teams Svp Chief Marketing Officer Relationship Specialty Start Date End Date Meme Steel MD [address] [place] [address] 105 [place] [address] PCP - General Pediatrics 06/05/18 04/25/22 No Pcp, Pcp PCP - General 06/08/22 07/19/22 Guadalupe Mcbride MD PCP - General Family Medicine 07/20/22 11/01/23 Sena Dominguez PA [address] [place] [address] [place] [address] PCP - BRADY Physician Supply Teacher 11/02/23 Levy Barry MD [address] [place] [address] [place] [address] PCP - General Family Medicine 12/20/23 documented as of this encounter
--- OUTSIDE RECORDS SUMMARY | 2025-09-18 11:41 | XMS_ITS | Encounter Summary ---
Author Organization [facility] work ([facility]) Address [address] [place] [address] Care Team Providers Care Strategic Planning Manager Name Role Phone Meme Steel MD Primary Care Provider [phone] Pcp, Pcp Primary Care Provider Guadalupe Sosa MD Primary Care Provider [phone] Sena Dominguez Unavailable [phone] Levy Barry MD Primary Care Provider [phone] Source Comments The information that you have [...] sender immediately.[facility] ([facility]) Encounter Details Date Type Department Care Team (Late st Contact Info) Description 06/24/2005 Historical Note SVMG SportEmp.com System Devyn Vásquez MD [address] [place] [address] [phone] Social History Tobacco Use Types Packs/Day Years [...] CARRILLO - [facility] 2315 [facility] G30 [place] [phone] Brenda Clay MD 2315 [facility] [address] [place] [phone] 04/15/2026 10:00 AM EDT Office Visit LE[facility]HA [facility] at [facility] + [facility] 4247 [facility] 105 [place] [phone] Sena Dominguez PA 4247 [facility] [place] [address] documented as of this encounter Visit Diagnoses Not on filedocumented in this encounter Care Teams Strategic Planning Manager Relationship Specialty Start Date End Date Meme Steel MD [address] [place] [address] 105 [place] [address] PCP - General Pediatrics 06/05/18 04/25/22 No Pcp, Pcp PCP - General 06/08/22 07/19/22 Guadalupe Mcbride MD PCP - General Family Medicine 07/20/22 11/01/23 Sena Dominguez PA [address] [place] [address] [place] [address] PCP - BRADY Physician Warp Tying Machine Tender 11/02/23 Levy Barry MD [address] [place] [address] [place] [address] PCP - General Family Medicine 12/20/23 documented as of this encounter
--- OUTSIDE RECORDS SUMMARY | 2025-09-18 11:41 | XMS_ITS | Encounter Summary ---
Author Organization [facility] work ([facility]) Address [address] [place] [address] Care Team Providers Care Forestry Conservation Worker Name Role Phone Meme Steel MD Primary Care Provider [phone] Pcp, Pcp Primary Care Provider Guadalupe Sosa MD Primary Care Provider [phone] Sena Dominguez Unavailable [phone] Levy Barry MD Primary Care Provider [phone] Source Comments The information that you have received may contain highly confidential and/or federally protected health information. This information has been disclosed to you from records protected by [facility]. The law prohibits you from making [...] immediately.[facility] ([facility]) Encounter Details Date Type Department Care Team (Late st Contact Info) Description 06/30/2005 Historical Note SVMG Ayasdi System Devyn Vásquez MD [address] [place] [address] [phone] Social History Tobacco Use Types Packs/Day Years [...] LEATHA CARRILLO - [facility] 2315 [facility] G30 [place] [phone] Brenda Clay MD 2315 [facility] [address] [place] [phone] 04/15/2026 10:00 AM EDT Office Visit LEATHA Primary [facility] at [facility] + [facility] 4247 [facility] 105 [place] [phone] Sena Dominguez PA 4247 [facility] [place] [address] documented as of this encounter Visit Diagnoses Not on filedocumented in this encounter Care Teams Forestry Conservation Worker Relationship Specialty Start Date End Date Meme Steel MD [address] [place] [address] 105 [place] [address] PCP - General Pediatrics 06/05/18 04/25/22 No Pcp, Pcp PCP - General 06/08/22 07/19/22 Guadalupe Mcbride MD PCP - General Family Medicine 07/20/22 11/01/23 Sena Dominguez PA [address] [place] [address] [place] [address] PCP - BRADY Physician Private Inquiry Agent 11/02/23 Levy Barry MD [address] [place] [address] [place] [address] PCP - General Family Medicine 12/20/23 documented as of this encounter
--- OUTSIDE RECORDS SUMMARY | 2025-09-18 11:41 | XMS_ITS | Encounter Summary ---
Author Organization [facility] work ([facility]) Address [address] [facility] [address] [address] [place] [address] Care Team Providers Care Traffic Control Flagger Name Role Phone Meme Steel MD Primary Care Provider [phone] Pcp, Pcp Primary Care Provider Guadalupe Sosa MD Primary Care Provider [phone] Sena Dominguez Unavailable [phone] Levy Barry MD Primary Care Provider [phone] Source Comments The information that you have received may contain highly confidential and/or federally protected health information. This information has been disclosed to you from records protected by [facility]. The law prohibits you from [...] please contact the sender immediately.[facility] ([facility]) Encounter Details Date Type Department Care Team (Late st Contact Info) Description 09/28/2005 Historical Note SVMG Intelligent Clearing Network System Devyn Vásquez MD [address] [place] [address] [phone] Social History Tobacco Use Types Packs/Day Years [...] Visit LEATHA CARRILLO - [facility] [address] [facility] G30 [place] [phone] Brenda Clay MD 2315 [facility] [address] [place] [phone] 04/15/2026 10:00 AM EDT Office Visit LE[facility]HA [facility] at [facility] + [facility] 4247 [facility] 105 [place] [phone] Sena Dominguez PA 4247 [facility] [place] [address] documented as of this encounter Visit Diagnoses Not on filedocumented in this encounter Care Teams Traffic Control Flagger Relationship Specialty Start Date End Date Meme Steel MD [address] [place] [address] 105 [place] [address] PCP - General Pediatrics 06/05/18 04/25/22 No Pcp, Pcp PCP - General 06/08/22 07/19/22 Guadalupe Mcbride MD PCP - General Family Medicine 07/20/22 11/01/23 Sena Dominguez PA [address] [place] [address] [place] [address] PCP - BRADY Physician Filling Machine Set Up Mechanic 11/02/23 Levy Barry MD [address] [place] [address] [place] [address] PCP - General Family Medicine 12/20/23 documented as of this encounter
--- OUTSIDE RECORDS SUMMARY | 2025-09-18 11:41 | XMS_ITS | Encounter Summary ---
Author Organization [facility] work ([facility]) Address [address] [place] [address] Care Team Providers Care Stucco Worker Name Role Phone Meme Steel MD Primary Care Provider [phone] Pcp, Pcp Primary Care Provider Guadalupe Sosa MD Primary Care Provider [phone] Sena Dominguez Unavailable [phone] Levy Barry MD Primary Care Provider [phone] Source Comments The information that you have received may contain highly confidential and/or federally protected health information. This information has been disclosed to you from records protected by [facility]. The law prohibits you from making [...] contact the sender immediately.[facility] ([facility]) Encounter Details Date Type Department Care Team (Late st Contact Info) Description 09/21/2010 Historical Note SVMG Sinequa System Devyn Vásquez MD [address] [place] [address] [phone] Social History Tobacco Use Types Packs/Day Years [...] Visit LEATHA CARRILLO - [facility] 2315 [facility] [address]30 [place] [phone] Brenda Clay MD 2315 [facility] [address] [place] [phone] 04/15/2026 10:00 AM EDT Office Visit [facility]HA [facility] at [facility] + [facility] 4247 [facility] 105 [place] [phone] Sena Dominguez PA 4247 [facility] [place] [address] documented as of this encounter Visit Diagnoses Not on filedocumented in this encounter Care Teams Stucco Worker Relationship Specialty Start Date End Date Meme Steel MD [address] [place] [address] 105 [place] [address] PCP - General Pediatrics 06/05/18 04/25/22 No Pcp, Pcp PCP - General 06/08/22 07/19/22 Guadalupe Mcbride MD PCP - General Family Medicine 07/20/22 11/01/23 Sena Dominguez PA [address] [place] [address] [place] [address] PCP - BRADY Physician Cell Tuber Hand 11/02/23 Levy Barry MD [address] [place] [address] [place] [address] PCP - General Family Medicine 12/20/23 documented as of this encounter
--- OUTSIDE RECORDS SUMMARY | 2025-09-18 11:41 | XMS_ITS | Encounter Summary ---
Author Organization [facility] work ([facility]) Address [address] [place] [address] Care Team Providers Care Medical Researcher Name Role Phone Meme Steel MD Primary Care Provider [phone] Pcp, Pcp Primary Care Provider Guadalupe Sosa MD Primary Care Provider [phone] Sena Dominguez Unavailable [phone] Levy Barry MD Primary Care Provider [...] Contact Info) Description 01/16/2017 Historical Note [facility]G Gliph System Devyn Vásquez MD [address] [place] [address] [phone] Social History Tobacco Use Types Packs/Day Years [...] CARRILLO - [facility] 2315 [facility] G30 [place] [phone] Brenda Clay MD 2315 [facility] [address] [place] [phone] 04/15/2026 10:00 AM EDT Office Visit [facility] + [facility] [address] [facility] 105 [place] [phone] Sena Dominguez PA 4247 [facility] [place] [address] documented as of this encounter Visit Diagnoses Not on filedocumented in this encounter Care Teams Medical Researcher Relationship Specialty Start Date End Date Meme Steel MD [address] [place] [address] 105 [place] [address] PCP - General Pediatrics 06/05/18 04/25/22 No Pcp, Pcp PCP - General 06/08/22 07/19/22 Guadalupe Mcbride MD PCP - General Family Medicine 07/20/22 11/01/23 Sena Dominguez PA [address] [place] [address] [place] [address] PCP - BRADY Physician Branch Director 11/02/23 Levy Barry MD [address] [place] [address] [place] [address] PCP - General Family Medicine 12/20/23 documented as of this encounter
--- OUTSIDE RECORDS SUMMARY | 2025-09-18 11:41 | XMS_ITS | Encounter Summary ---
Author Organization [facility] work ([facility]) Address [address] [place] [address] Care Team Providers Care Manager Steel Name Role Phone Meme Steel MD Primary Care Provider [phone] Pcp, Pcp Primary Care Provider Guadalupe Sosa MD Primary Care Provider [phone] Sena Dominguez Unavailable [phone] Levy Barry MD Primary Care Provider [phone] Source Comments The information that you have received may contain highly confidential and/or federally protected health information. This information has been disclosed to you from records protected by [facility]. The law prohibits you from making [...] error, please contact the sender immediately.[facility] ([facility]) Encounter Details Date Type Department Care Team (Late st Contact Info) Description 02/06/2010 Historical Note [facility] [employer] Devyn Vásquez MD [address] [place] [address] [id number] Social History Tobacco Use Types Packs/Day Years [...] LEATHA CARRILLO - [facility] [address] [facility] [address] [place] [phone] Brenda Clay MD 2315 [facility] [address] [place] [phone] 04/15/2026 10:00 AM EDT Office Visit [facility] + [facility] [address] [facility] 105 [place] [phone] Sena Dominguez PA [address] [facility] [place] [address] documented as of this encounter Visit Diagnoses Not on filedocumented in this encounter Care Teams Manager Steel Relationship Specialty Start Date End Date Meme Steel MD [address] [place] [address] 105 [place] [address] PCP - General Pediatrics 06/05/18 04/25/22 No Pcp, Pcp PCP - General 06/08/22 07/19/22 Guadalupe Mcbride MD PCP - General Family Medicine 07/20/22 11/01/23 Sena Dominguez PA [address] [place] [address] [place] [address] PCP - BRADY Physician Store Hand 11/02/23 Levy Barry MD [address] [place] [address] [place] [address] PCP - General Family Medicine 12/20/23 documented as of this encounter
--- OUTSIDE RECORDS SUMMARY | 2025-09-18 11:41 | XMS_ITS | Encounter Summary ---
Author Organization [facility] work ([facility]) Address [address] [place] [address] Care Team Providers Care Child And Adolescent Psychiatrist Name Role Phone Meme Steel MD Primary Care Provider [phone] Pcp, Pcp Primary Care Provider Guadalupe Sosa MD Primary Care Provider [phone] Sena Dominguez Unavailable [phone] Levy Barry MD Primary Care Provider [phone] Source Comments The information that you have [...] please contact the sender immediately.[facility] ([facility]) Encounter Details Date Type Department Care Team (Late st Contact Info) Description 10/27/2016 Historical Note [facility] [employer] [facility] Devyn Vásquez MD [address] [place] [address] [phone] Social History Tobacco Use Types Packs/Day Years [...] CARRILLO - [facility] 23[address] [facility] [address] [place] [phone] Brenda Clay MD 2315 [facility] [address] [place] [phone] 04/15/2026 10:00 AM EDT Office Visit [facility] at [facility] + [facility] 4247 [facility] 105 [place] [phone] Sena Dominguez PA [address] [facility] [place] [address] documented as of this encounter Visit Diagnoses Not on filedocumented in this encounter Care Teams Child And Adolescent Psychiatrist Relationship Specialty Start Date End Date Meme Steel MD [address] [place] [address] 105 [place] [address] PCP - General Pediatrics 06/05/18 04/25/22 No Pcp, Pcp PCP - General 06/08/22 07/19/22 Guadalupe Mcbride MD PCP - General Family Medicine 07/20/22 11/01/23 Sena Dominguez PA [address] [place] [address] [place] [address] PCP - BRADY Physician Learning Design Specialist 11/02/23 Levy Barry MD [address] [place] [address] [place] [address] PCP - General Family Medicine 12/20/23 documented as of this encounter
--- OUTSIDE RECORDS SUMMARY | 2025-09-18 11:41 | XMS_ITS | Encounter Summary ---
Author Organization [facility] work ([facility]) Address [address] [place] [address] Care Team Providers Care Supervisor Ditching Name Role Phone Meme Steel MD Primary Care Provider [phone] Pcp, Pcp Primary Care Provider Guadalupe Sosa MD Primary Care Provider [phone] Sena Dominguez Unavailable [phone] Levy Barry MD Primary Care Provider [phone] Source Comments The information that you have received may contain highly confidential and/or federally protected health information. This information has been disclosed to you from records protected by [facility]. The law prohibits you from making any [...] please contact the sender immediately.[facility] ([facility]) Encounter Details Date Type Department Care Team (Late st Contact Info) Description 08/30/2005 Historical Note [facility] [employer] System Devyn Vásquez MD [address] [place] [address] [phone] Social History Tobacco Use Types Packs/Day Years [...] LEATHA CARRILLO - [facility] [address] [facility] [address] [place] [phone] Brenda Clay MD 2315 [facility] [address] [place] [phone] 04/15/2026 10:00 AM EDT Office Visit [facility] 4247 [facility] [address] [place] [phone] Sena Dominguez PA 4[address] [facility] [place] [address] documented as of this encounter Visit Diagnoses Not on filedocumented in this encounter Care Teams Supervisor Ditching Relationship Specialty Start Date End Date Meme Steel MD [address] [place] [address] 105 [place] [phone] PCP - General Pediatrics 06/05/18 04/25/22 No Pcp, Pcp PCP - General 06/08/22 07/19/22 Guadalupe Mcbride MD PCP - General Family Medicine 07/20/22 11/01/23 Sena Dominguez PA [address] [place] [address] [place] [address] PCP - BRADY Physician Engineer Design And Construction 11/02/23 Levy Barry MD [address] [place] [address] [place] [address] PCP - General Family Medicine 12/20/23 documented as of this encounter
--- OUTSIDE RECORDS SUMMARY | 2025-09-18 11:41 | XMS_ITS | Encounter Summary ---
Author Organization [facility] work ([facility]) Address [address] [address] [place] [address] Care Team Providers Care Factory Lay Out Engineer Name Role Phone Meme Steel MD Primary Care Provider [phone] Pcp, Pcp Primary Care Provider Guadalupe Sosa MD Primary Care Provider [phone] Sena Dominguez Unavailable [phone] Levy Barry MD Primary Care Provider [phone] Source Comments The information that you have received may contain highly confidential and/or federally protected health information. This information has been disclosed to you from records protected by [facility]. The law prohibits you from making [...] Contact Info) Description 06/30/2005 Historical Note [facility] [employer] [facility] Devyn Vásquez MD [address] [place] [address] [phone] Social History Tobacco Use Types Packs/Day Years Used Date Smoking Tobacco: Never Assessed Comments Unknown Sex and Gender Information Value Date Recorded Sex Assigned at Not on file Legal Sex Female 1:04 AM EDT Gender Identity Not on file Sexual Orientation Not on file documented as of this encounter Plan of Treatment Upcoming Encounters Date Type Department Care Team ([facility] st Contact Info) Description 10/10/2025 10:00 AM EST Office Visit LEATHA CARRILLO - [facility] 2315 [facility] G30 [place] [phone] Brenda Clay MD 2315 [facility] [address] [place] [phone] 04/15/2026 10:00 AM EDT Office Visit [facility] at [facility] + [facility] [address] [facility] [address] [place] [phone] Sena Dominguez PA 4[address] [facility] [place] [address] documented as of this encounter Visit Diagnoses Not on filedocumented in this encounter Care Teams Factory Lay Out Engineer Relationship Specialty Start Date End Date Meme Steel MD [address] [place] [address] 105 [place] [address] PCP - General Pediatrics 06/05/18 04/25/22 No Pcp, Pcp PCP - General 06/08/22 07/19/22 Guadalupe Mcbride MD PCP - General Family Medicine 07/20/22 11/01/23 Sena Dominguez PA [address] [place] [address] [place] [address] PCP - BRADY Physician Fundraising Officer 11/02/23 Levy Barry MD [address] [place] [address] [place] [address] PCP - General Family Medicine 12/20/23 documented as of this encounter
--- OUTSIDE RECORDS SUMMARY | 2025-09-18 11:41 | XMS_ITS | Encounter Summary ---
Author Organization [facility] work ([facility]) Address [address] [place] [address] Care Team Providers Care Bacteriology Technician Name Role Phone Meme Steel MD Primary Care Provider [phone] Pcp, Pcp Primary Care Provider Guadalupe Sosa MD Primary Care Provider [phone] Sena Dominguez Unavailable [phone] Levy Barry MD Primary Care Provider [phone] Source Comments The information that you have received may contain highly confidential and/or federally protected health information. This information has been disclosed to you from records protected by [facility]. The law prohibits you from [...] contact the sender immediately.[facility] ([facility]) Encounter Details Date Type Department Care Team (Late st Contact Info) Description 06/24/2005 Historical Note [facility] [employer] System Devyn Vásquez MD [address] [place] [address] [phone] Social History Tobacco Use Types Packs/Day Years [...] LEATHA CARRILLO - [facility] 23[address] [facility] [address] [place] [phone] Brenda Clay MD 2315 [facility] [address] [place] [phone] 04/15/2026 10:00 AM EDT Office Visit [facility]HA [facility] + [facility] 4[address] [facility] 105 [place] [phone] Sena Dominguez PA 4[address] [facility] [place] [address] documented as of this encounter Visit Diagnoses Not on filedocumented in this encounter Care Teams Bacteriology Technician Relationship Specialty Start Date End Date Meme Steel MD [address] [place] [address] 105 [place] [address] PCP - General Pediatrics 06/05/18 04/25/22 No Pcp, Pcp PCP - General 06/08/22 07/19/22 Guadalupe Mcbride MD PCP - General Family Medicine 07/20/22 11/01/23 Sena Dominguez PA [address] [place] [address] [place] [address] PCP - BRADY Physician Assembler Brazer 11/02/23 Levy Barry MD [address] [place] [address] [place] [address] PCP - General Family Medicine 12/20/23 documented as of this encounter
--- OUTSIDE RECORDS SUMMARY | 2025-09-18 11:41 | XMS_ITS | Encounter Summary ---
Author Organization [facility] work ([facility] Address [address] [place] [address] Care Team Providers Care Cinema Or Theatre Manager Name Role Phone Meme Steel MD Primary Care Provider [phone] Pcp, Pcp Primary Care Provider Guadalupe Sosa MD Primary Care Provider [phone] Sena Domingeuz Unavailable [phone] Levy Barry MD Primary Care Provider [phone] Source Comments The information that you have received may contain highly confidential and/or federally protected health information. This information has been disclosed to you from records protected by [facility]. The law prohibits you from [...] please contact the sender immediately.[facility] ([facility] Encounter Details Date Type Department Care Team (Late st Contact Info) Description 01/16/2017 Historical Note [facility] [employer] System Devyn Vásquez MD [address] [place] [address] [phone] Social History Tobacco Use Types Packs/Day Years [...] CARRILLO - [facility] 2315 [facility] G30 [place] [phone] Brenda Clay MD 2315 [facility] [address] [place] [phone] 04/15/2026 10:00 AM EDT Office Visit LEATHA Primary [facility] at [facility] + [facility] 4247 [facility] 105 [place] [phone] Sena Dominguez PA [address] [facility] [place] [address] documented as of this encounter Visit Diagnoses Not on filedocumented in this encounter Care Teams Cinema Or Theatre Manager Relationship Specialty Start Date End Date Meme Steel MD [address] [place] [address] 105 [place] [address] PCP - General Pediatrics 06/05/18 04/25/22 No Pcp, Pcp PCP - General 06/08/22 07/19/22 Guadalupe Mcbride MD PCP - General Family Medicine 07/20/22 11/01/23 Sena Dominguez PA [address] [place] [address] [place] [address] PCP - BRADY Physician Home Health Billing Specialist 11/02/23 Levy Barry MD [address] [place] [address] [place] [address] PCP - General Family Medicine 12/20/23 documented as of this encounter
--- OUTSIDE RECORDS SUMMARY | 2025-09-18 11:41 | XMS_ITS | Encounter Summary ---
Author Organization [facility] work ([facility]) Address [address] [place] [address] Care Team Providers Care Sleeve Ironer Name Role Phone Meme Steel MD Primary Care Provider [phone] Pcp, Pcp Primary Care Provider Guadalupe Sosa MD Primary Care Provider Sena Dominguez Unavailable [phone] Levy Barry MD Primary Care Provider [phone] Source Comments The information that you have received may contain highly confidential and/or federally protected health information. This information has been disclosed to you from records protected by [facility]. The law prohibits you from [...] contact the sender immediately.[facility] ([facility]) Encounter Details Date Type Department Care Team (Late st Contact Info) Description 08/30/2005 Historical Note [facility] [employer] System Devyn Vásquez MD [address] [place] [address] [phone] Social History Tobacco Use Types Packs/Day Years [...] CARRILLO - [facility] 2315 [facility] G30 [place] [phone] Brenda Clay MD 2315 [facility] [address] [place] [phone] 04/15/2026 10:00 AM EDT Office Visit [facility]HA [facility] 4247 [facility] 105 [place] [phone] Sena Dominguez PA 4[address] [facility] [place] [address] documented as of this encounter Visit Diagnoses Not on filedocumented in this encounter Care Teams Sleeve Ironer Relationship Specialty Start Date End Date Meme Steel MD [address] [place] [address] 105 [place] [address] PCP - General Pediatrics 06/05/18 04/25/22 No Pcp, Pcp PCP - General 06/08/22 07/19/22 Guadalupe Mcbride MD PCP - General Family Medicine 07/20/22 11/01/23 Sena Dominguez PA [address] [place] [address] [place] [address] PCP - BRADY Physician Baggage And Mail Agent 11/02/23 Levy Barry MD [address] [place] [address] [place] [address] PCP - General Family Medicine 12/20/23 documented as of this encounter
--- OUTSIDE RECORDS SUMMARY | 2025-09-18 11:41 | XMS_ITS | Encounter Summary ---
Author Organization [facility] work ([facility]) Address [address] [place] [address] Care Team Providers Care Animal Anatomist Name Role Phone Meme Steel MD Primary Care Provider [phone] Pcp, Pcp Primary Care Provider Guadalupe Sosa MD Primary Care Provider [phone] Sena Dominguez Unavailable [phone] Levy Barry MD Primary Care Provider [phone] Source Comments The information that you have [...] please contact the sender immediately.[facility] ([facility]) Encounter Details Date Type Department Care Team (Late st Contact Info) Description 02/02/2016 Historical Note [facility] [employer] System Devyn Vásquez MD [address] [place] [address] [phone] Social History Tobacco Use Types Packs/Day Years [...] CARRILLO - [facility] at [facility] 2315 [facility] [address] [place] [phone] Brenda Clay MD 2315 [facility] [address] [place] [phone] 04/15/2026 10:00 AM EDT Office Visit LEATHA Primary Care at [facility] + [facility] 4247 [facility] 105 [place] [phone] Sena Dominguez PA 4247 [facility] [place] [address] documented as of this encounter Visit Diagnoses Not on filedocumented in this encounter Care Teams Animal Anatomist Relationship Specialty Start Date End Date Meme Steel MD [address] [place] [address] 105 [place] [address] PCP - General Pediatrics 06/05/18 04/25/22 No Pcp, Pcp PCP - General 06/08/22 07/19/22 Guadalupe Mcbride MD PCP - General Family Medicine 07/20/22 11/01/23 Sena Dominguez PA [address] [place] [address] [place] [address] PCP - BRADY Physician Sample Paster 11/02/23 Levy Barry MD [address] [place] [address] [place] [address] PCP - General Family Medicine 12/20/23 documented as of this encounter
--- OUTSIDE RECORDS SUMMARY | 2025-09-18 11:41 | XMS_ITS | Continuity of Care Document ---
Author Organization [facility]. Address [address] [place] [address] Phone [phone] Care Team Providers Care Geophysical Prospector Name Role Phone Guadalupe Mcbride MD Care Team Information Receiv er Unavailable ANA ROSA RAMOS M.D. Care Team Information Receiv er Unavailable Guadalupe Mcbride MD Primary Care Physician Unava ilable Allergies and adverse reactions Description No Known Drug Allergies Medications Active Medications SIG Qnty Indications Ordering Provider Date [id number] Tablets 1 by mouth every day 90tabs Ana Rosa Ramos M.D. 05/28/2024 OCP Unknown Barb [id number] Tablets Unknown Propranolol [id number] Tablets Unknown Jrzfptzuk9pe Tablets Unknown Vitamin D-325mcg (1000 Ut) Capsules Unknown Fluoxetine [id number] Capsules Unknown History Medications Wegovy0.25mg/0.5ML Solution Auto-Inject inject 0.25 mg weekly x 4 weeks 2ml Ana Rosa Ramos M.D. 03/25/2024 - 06/26/2024 Sertraline [id number] Tablets Un known - 06/26/2024 Results Test Acquired Date Facility Test Result H/L Range Note TSH 07/05/2025 [facility] (Use [facility] Other [facility]) [address] [facility] [place] [address] TSH 1.87 mIU/L Normal 1 T4, Free 07/05/2025 [facility] (Use [facility] Other Sites) [address] [place] [address] T4, Free 1.3 ng/dL Normal 0.8-1.8 Vitamin D,25-Oh,Total,Ia 07/05/2025 [facility] (Use [facility] Other [facility]) [address] [place] [address] Vitamin D,25-Oh,Total,Ia 29 ng/mL Low 30-100 2 Enhanced PDF Report [id number] 07/05/2025 [facility] (Use [facility] Other [facility]) [address] [place] [address] [phone] Enhanced PDF Report [id number] PDF IMAGE OFF C-Peptide 04/03/2024 [facility] (Use [facility] Other Sites) [address] [place] [address] [phone] C-Peptide 1.72 ng/mL Normal 0.80-3.8 5 3 Insulin 04/03/2024 [facility] (Use [facility] Other Sites) [address] [address] Insulin 10.9 uIU/mL Normal 4 Basic Metabolic Panel 04/03/2024 [facility] (Use [facility] Other Sites) [address] [address] [phone] Glucose 82 mg/dL Normal 65-99 5 [...] [facility] Other Sites) [address] [place] [phone] TSH 4.14 mIU/L Normal 7 T4, Free 04/03/2024 [facility] (Use [facility] For Other Sites) [address] [place] [address] [phone] T4, Free 1.1 ng/dL Normal 0.8-1.4 Thyroid Peroxidase And Thyroglobulin Abs 04/03/2024 [facility] (Use [facility] Other Sites) [address] [place] [address] [phone] Thyroglobulin Antibodies 1 IU/mL Normal < or = 1 Thyroid Peroxidase Antibodies 61 IU/mL High <9 Tsi (Thyroid Stimulating Immunoglobulin) 04/03/2024 [facility] (Use [facility] Other Sites) [address] [place] [id number] Tsi (Thyroid Stimulating Immunoglobulin) <89 %baseline <140 8 PTH Intact And Calcium 04/03/2024 [facility] (Use [facility] Other Sites) [address] [place] [address] [phone] Parathyroid Hormone, Intact 68 pg/mL Normal 16-77 9 Calcium 9.1 mg/dL Normal 8.9-10.4 Vitamin D,25-Oh,Total,Ia 04/03/2024 [facility] (Use [facility] Other Sites) [address] [place] [address] [phone] Vitamin D,25-Oh,Total,Ia 39 ng/mL Normal 30-100 10 Albumin 04/03/2024 [facility] (Use [facility] For Other Sites) [address] [place] 3998347 [phone] Albumin 4.0 g/dL Normal 3.6-5.1 Clinical PDF Report [id number] 04/03/2024 [facility] (Use [facility] For Other Sites) [address] [id number] Clinical PDF Report [id number] PDF IMAGE OFF Enhanced PDF Report [id number] 04/03/2024 [facility] (Use [facility] For Other Sites) [address] [place] [address] [phone] Enhanced PDF Report [id number] PDF IMAGE OFF 1 Reference Range > or = 20 Years 0.40-4.50 Ranges First trimester 0.26-2.66 Second trimester 0.55-2.73 Third trimester 0.43-2.91 2 Vitamin D Status 25- OH Vitamin D: Deficiency: <20 ng/mL Insufficiency: 20 - 29 ng/mL Optimal: > or = 30 ng/mL For 25-OH Vitamin D testing on patients on D2-supplementation and patients for whom quantitation of D2 and D3 fractions is required, the QuestAlgisysureD(TM) 25-OH VIT D, (D2,D3), LC/MS/MS is recommended: order code 81258 (patients >2yrs). See Note 1 Note 1 For additional information, please refer to http://education.[employer] [place]/faq/ISU455 (This link is being provided for informational/ educational purposes only.) 3 FASTING:YES FASTING: YES 4 Reference Range < or = 18.4 Risk: Optimal < or = 18.4 Moderate NA High >18.4 Adult cardiovascular event risk category cut points (optimal, moderate, high) are based on Insulin Reference Interval studies performed at [facility] in 2021. 5 Fasting reference in terval [...] of this assay have been determined by [facility], [place], [place]. The modifications have not been cleared [...] D, (D2,D3), LC/MS/MS is recommended: order code 04911 (patients >2yrs). See Note 1 Note 1 For additional information, please refer to http://education.[employer]cope/faq/PMP260 (This link is being provided for informational/ [...] 11:20 am - Courtney Trejo PA-C at [facility] 12/04/2024 - Courtney Trejo PA-C* E06.3 Autoimmune thyroiditis * E55.9 Vitamin D deficiency, unspecified * R94.6 Abnormal results of thyroid function studies * R63.5 Abnormal weight gain * * Comments:* Hashimotos Cont Unithroid 25mcg Reviewed s/sxs of over/under replacementRepeat TFTs 6-8 weeks aftertaking thyroid medication consistently Vit D deficiency Cont vit D supplementationVit D well on last check 04/05 Repeat bnv Weight GainWeight stable from last visit Low CHO diet and exercise as toleratedInsurance denied Wegovy Call with any questions/concerns * Follow up:* 6 mo 06/26/2024 - Courtney Trejo PA-C* E55.9 Vitamin D deficiency, unspecified * R94.6 Abnormal results of thyroid function studies * R63.5 Abnormal weight gain * E06.3 Autoimmune thyroiditis * * Comments:* Vit D deficiency Cont vit D supplementationVit D well on last check 04/05 Hashimotos Cont Unithroid 25mcg Reviewed s/sxs of over/under replacementRepeat TFTs 6-8 weeks after taking thyroid medication consistently Weight GainDown 9lbs since last visit Low CHO diet and exercise as toleratedInsurance denied Wegovy Call with any questions/concerns * Follow up:* 6-8 mo 03/25/2024 - Courtney Trejo PA-C* E55.9 Vitamin D deficiency, unspecified * R94.6 Abnormal results of thyroid function studies * R63.5 Abnormal weight gain * * Comments:* Vit D deficiency Cont vit D supplementationWill repeat labs bnv Abnormal TFTsWill repeat TFTs and check ATAsStrong famhx of Mark's Weight GainLengthy discussion about weight gain and treatmentLow CHO diet and exercise as toleratedWill check IR labs bnv Pt is interested in Wegovy. Reviewedproper use, potential SE, and titration schedule. Will start Wegovy 0.25mg once weekly Answered allquestions to pt and mother's satisfactionCall with any questions/concerns * Follow up:* 3 mo 11/21/2023 - Courtney Trejo PA-C* E55.9 Vitamin D deficiency, unspecified *
--- OUTSIDE RECORDS SUMMARY | 2025-09-18 11:41 | XMS_ITS | Encounter Summary ---
Author Organization [facility] work ([facility]) Address [address] [place] [address] Care Team Providers Care Prepared Foods Production Team Member Name Role Phone Meme Steel MD Primary Care Provider [phone] No Pcp, Pcp Primary Care Provider Guadalupe Sosa MD Primary Care Provider [phone] Sena Dominguez Unavailable [phone] Levy Barry MD Primary Care Provider [phone] Source Comments The information that you have received may contain highly confidential and/or federally protected health information. This information has been disclosed to you from records protected by [facility]. The law prohibits you from [...] the sender immediately.[facility] ([facility]) Encounter Details Date Type Department Care Team (Late st Contact Info) Description 06/30/2005 Historical Note [facility] [employer] Connect System Devyn Vásquez MD [address] [place] [address] [phone] Social History Tobacco Use Types Packs/Day Years [...] Visit LEATHA CARRILLO - [facility] [address] [facility] [address] [place] [phone] Brenda Clay MD 2315 [facility] [address] [place] [address] 04/15/2026 10:00 AM EDT Office Visit [facility]HA [facility] at [facility] + [facility] [address] [facility] [address] [place] [phone] Sena Dominguez PA [address] [facility] [place] [address] documented as of this encounter Visit Diagnoses Not on filedocumented in this encounter Care Teams Prepared Foods Production Team Member Relationship Specialty Start Date End Date Meme Steel MD [address] [place] [address] [address] [place] [address] PCP - General Pediatrics 06/05/18 04/25/22 No Pcp, Pcp PCP - General 06/08/22 07/19/22 Guadalupe Mcbride MD PCP - General Family Medicine 07/20/22 11/01/23 Sena Dominguez PA [address] [place] [address] [place] [address] PCP - BRADY Physician Environmental Specialist 11/02/23 Levy Barry MD [address] [place] [address] [place] [address] PCP - General Family Medicine 12/20/23 documented as of this encounter
--- OUTSIDE RECORDS SUMMARY | 2025-09-18 11:41 | XMS_ITS | Encounter Summary ---
Author Organization [facility] work ([facility]) Address [address] [place] [address] Care Team Providers Care Guest Services Representative Name Role Phone Meme Steel MD Primary Care Provider No Pcp, Pcp Primary Care Provider Guadalupe Sosa MD Primary Care Provider [phone] Sena Dominguez Unavailable [phone] Levy Barry MD Primary Care Provider [phone] Source Comments The information that you have [...] contact the sender immediately.[facility] ([facility]) Encounter Details Date Type Department Care Team (Late st Contact Info) Description 08/17/2010 Historical Note [facility] [employer] System Devyn Vásquez MD [address] [place] [address] [phone] Social History Tobacco Use Types Packs/Day Years Used Date Smoking Tobacco: Never Assessed Comments Unknown Sex and Gender Information Value Date Recorded Sex Assigned at Not on file Legal Sex Female 1:04 AM EDT Gender Identity Not on file Sexual Orientation Not on file documented as of this encounter Plan of Treatment Upcoming Encounters Date Type Department Care Team ([facility] st Contact Info) Description 10/10/2025 10:00 AM EST Office Visit LEATHA CARRILLO - [facility] at [facility] [address] [facility] [address] [place] [phone] Brenda Clay MD 23[address] [facility] [address] [place] [phone] 04/15/2026 10:00 AM EDT Office Visit [facility]HA [facility] at [facility] + [facility] [address] [facility] [place] [address] [place] [phone] Sena Dominguez PA [address] [facility] [place] [address] documented as of this encounter Visit Diagnoses Not on filedocumented in this encounter Care Teams Guest Services Representative Relationship Specialty Start Date End Date Meme Steel MD [address] [place] [address] [address] [place] [address] PCP - General Pediatrics 06/05/18 04/25/22 No Pcp, Pcp PCP - General 06/08/22 07/19/22 Guadalupe Mcbride MD PCP - General Family Medicine 07/20/22 11/01/23 Sena Dominguez PA [address] [place] [address] [place] [address] PCP - BRADY Physician Flexible Shaft Winder 11/02/23 Levy Barry MD [address] [place] [address] [place] [address] PCP - General Family Medicine 12/20/23 documented as of this encounter
--- OUTSIDE RECORDS SUMMARY | 2025-09-18 11:41 | XMS_ITS | Encounter Summary ---
Author Organization [facility] work ([facility]) Address [address] [facility] [address] [place] [address] Care Team Providers Care Metal Mixer Name Role Phone Meme Steel MD Primary Care Provider [phone] No Pcp, Pcp Primary Care Provider Guadalupe Sosa MD Primary Care Provider [phone] Sena Dominguez Unavailable [phone] Levy Barry MD Primary Care Provider [phone] Source Comments The information that you have received may contain highly confidential and/or federally protected health information. This information has been disclosed to you from records protected by [facility]. The law prohibits you from making [...] error, please contact the sender immediately.[facility] ([facility]) Encounter Details Date Type Department Care Team (Late st Contact Info) Description 02/19/2010 Historical Note [facility] [employer] System Devyn Vásquez MD [address] [place] [address] [phone] Social History Tobacco Use Types Packs/Day Years [...] [facility] 23[address] [facility] [address] [place] [phone] Brenda Clay MD 2315 [facility] [address] [place] [phone] 04/15/2026 10:00 AM EDT Office Visit LE[facility]HA [facility] at [facility] + [facility] 4247 [facility] [address] [place] [phone] Sena Dominguez PA 4[address] [facility] [place] [address] documented as of this encounter Visit Diagnoses Not on filedocumented in this encounter Care Teams Metal Mixer Relationship Specialty Start Date End Date Meme Steel MD [address] [place] [address] 105 [place] [address] PCP - General Pediatrics 06/05/18 04/25/22 No Pcp, Pcp PCP - General 06/08/22 07/19/22 Guadalupe Mcbride MD PCP - General Family Medicine 07/20/22 11/01/23 Sena Dominguez PA [address] [place] [address] [place] [address] PCP - BRADY Physician Computer Networking Instructor 11/02/23 Levy Barry MD [address] [place] [address] [place] [address] PCP - General Family Medicine 12/20/23 documented as of this encounter
--- OUTSIDE RECORDS SUMMARY | 2025-09-18 11:41 | XMS_ITS | Encounter Summary ---
Author Organization [facility] work ([facility]) Address [address] [place] [address] Care Team Providers Care Supervisor Engraving Name Role Phone Meme Steel MD Primary Care Provider [phone] No Pcp, Pcp Primary Care Provider Guadalupe Sosa MD Primary Care Provider Sena Dominguez Unavailable [phone] Levy Barry MD Primary Care Provider [phone] Source Comments The information that you have [...] please contact the sender immediately.[facility] ([facility]) Encounter Details Date Type Department Care Team (Late st Contact Info) Description 10/27/2016 Historical Note [facility] [employer] System Devyn Vásquez MD [address] [place] [address] [phone] Social History Tobacco Use Types Packs/Day Years [...] CARRILLO - [facility] at [facility] [address] [facility] [address] [place] [phone] Brenda Clay MD 2315 [facility] [address] [place] [phone] 04/15/2026 10:00 AM EDT Office Visit LEATHA Primary [facility] at [facility] + [facility] 4[address] [facility] [address] [place] [phone] Sena Dominguez PA 4247 [facility] [place] [address] documented as of this encounter Visit Diagnoses Not on filedocumented in this encounter Care Teams Supervisor Engraving Relationship Specialty Start Date End Date Meme Steel MD [address] [place] [address] 105 [place] [address] PCP - General Pediatrics 06/05/18 04/25/22 No Pcp, Pcp PCP - General 06/08/22 07/19/22 Guadalupe Mcbride MD PCP - General Family Medicine 07/20/22 11/01/23 Sena Dominguez PA [address] [place] [address] [place] [address] PCP - BRADY Physician Back End Developer 11/02/23 Levy Barry MD [address] [place] [address] [place] [address] PCP - General Family Medicine 12/20/23 documented as of this encounter
--- OUTSIDE RECORDS SUMMARY | 2025-09-18 11:41 | XMS_ITS | Encounter Summary ---
Author Organization [facility] work ([facility]) Address [address] [place] [address] Care Team Providers Care Cut And Print Machine Operator Name Role Phone Meme Steel MD Primary Care Provider [phone] Pcp, Pcp Primary Care Provider Guadalupe Sosa MD Primary Care Provider [phone] Sena Dominguez Unavailable [phone] Levy Barry MD Primary Care Provider [phone] Source Comments The information that you have [...] the sender immediately.[facility] ([facility]) Encounter Details Date Type Department Care Team (Late st Contact Info) Description 08/07/2009 Historical Note [facility] [employer] System Devyn Vásquez MD [address] [place] [phone] Social History Tobacco Use Types Packs/Day Years [...] CARRILLO - [facility] [address] [facility] [address] [place] [phone] Brenda Clay MD 2315 [facility] [address] [place] [phone] 04/15/2026 10:00 AM EDT Office Visit LEATHA Primary Care at [facility] + [facility] 4247 [facility] [address] [place] [phone] Sena Dominguez PA [address] [facility] [place] [address] documented as of this encounter Visit Diagnoses Not on filedocumented in this encounter Care Teams Cut And Print Machine Operator Relationship Specialty Start Date End Date Meme Steel MD [address] [place] [address] 105 [place] [address] PCP - General Pediatrics 06/05/18 04/25/22 No Pcp, Pcp PCP - General 06/08/22 07/19/22 Guadalupe Mcbride MD PCP - General Family Medicine 07/20/22 11/01/23 Sena Dominguez PA [address] [place] [address] [place] [address] PCP - BRADY Physician Shear Assembler 11/02/23 Levy Barry MD [address] [place] [address] [place] [address] PCP - General Family Medicine 12/20/23 documented as of this encounter
--- OUTSIDE RECORDS SUMMARY | 2025-09-18 11:41 | XMS_ITS | Encounter Summary ---
Author Organization [facility] work ([facility]) Address [address] [place] [address] Care Team Providers Care Skid Worker Name Role Phone Meme Steel MD Primary Care Provider [phone] Pcp, Pcp Primary Care Provider Guadalupe Sosa MD Primary Care Provider [phone] Sena Dominguez Unavailable Levy Barry MD Primary Care Provider [phone] Source Comments The information that you have [...] contact the sender immediately.[facility] ([facility]) Encounter Details Date Type Department Care Team (Late st Contact Info) Description 10/29/2009 Historical Note [facility] [x+1] System Devyn Vásquez MD [address] [place] [address] [phone] Social History Tobacco Use Types Packs/Day Years [...] LEATHA CARRILLO - [facility] [address] [facility] [address] [place] [phone] Brenda Clay MD 2315 [facility] [address] [place] [phone] 04/15/2026 10:00 AM EDT Office Visit LEATHA Primary Care at [facility] + [facility] 4247 [facility] [address] [place] [phone] Sena Dominguez PA [address] [facility] [place] [address] documented as of this encounter Visit Diagnoses Not on filedocumented in this encounter Care Teams Skid Worker Relationship Specialty Start Date End Date Meme Steel MD [address] [place] [address] 105 [place] [address] PCP - General Pediatrics 06/05/18 04/25/22 No Pcp, Pcp PCP - General 06/08/22 07/19/22 Guadalupe Mcbride MD PCP - General Family Medicine 07/20/22 11/01/23 Sena Dominguez PA [address] [place] [address] [place] [address] PCP - BRADY Physician Town Clerk 11/02/23 Levy Barry MD [address] [place] [address] [place] [address] PCP - General Family Medicine 12/20/23 documented as of this encounter
--- OUTSIDE RECORDS SUMMARY | 2025-09-18 11:41 | XMS_ITS | Encounter Summary ---
Author Organization [facility] work ([facility]) Address [address] [place] [address] Care Team Providers Care Molding Press Operator Name Role Phone Meme Steel MD Primary Care Provider [phone] No Pcp, Pcp Primary Care Provider Guadalupe Sosa MD Primary Care Provider [phone] Sena Dominguez Unavailable [phone] Levy Barry MD Primary Care Provider [phone] Source Comments The information that you have received may contain highly confidential and/or federally protected health information. This information has been disclosed to you from records protected by [facility]. The law prohibits you from [...] [facility] ([facility]) Encounter Details Date Type Department Care Team (Late st Contact Info) Description 03/09/2016 Historical Note [facility] Devyn Vásquez MD [address] [place] [address] [phone] Social History Tobacco Use Types Packs/Day Years Used Date Smoking Tobacco: Never Assessed Comments Unknown Sex and Gender Information Value Date Recorded Sex Assigned at Not on file Legal Sex Female 1:04 AM EDT Gender Identity Not on file Sexual Orientation Not on file documented as of this encounter Plan of Treatment Upcoming Encounters Date Type Department Care Team ([facility] st Contact Info) Description 10/10/2025 10:00 AM EST Office Visit LEATHA CARRILLO - [facility] 2315 [facility] [address] [place] [phone] Brenda Clay MD 2315 [facility] [address] [place] [phone] 04/15/2026 10:00 AM EDT Office Visit LEATHA Primary Care at [facility] + [facility] 4247 [facility] [address] [place] [phone] Sena Dominguez PA 4[address] [facility] [place] [address] documented as of this encounter Visit Diagnoses Not on filedocumented in this encounter Care Teams Molding Press Operator Relationship Specialty Start Date End Date Meme Steel MD [address] [place] [address] 105 [place] [address] PCP - General Pediatrics 06/05/18 04/25/22 No Pcp, Pcp PCP - General 06/08/22 07/19/22 Guadalupe Mcbride MD PCP - General Family Medicine 07/20/22 11/01/23 Sena Dominguez PA [address] [place] [address] [place] [address] PCP - BRADY Physician Credit Counselor 11/02/23 Levy Barry MD [address] [place] [address] [place] [address] PCP - General Family Medicine 12/20/23 documented as of this encounter
--- OUTSIDE RECORDS SUMMARY | 2025-09-18 11:41 | XMS_ITS | Encounter Summary ---
Author Organization [facility] work ([facility]) Address [address] [place] [address] Care Team Providers Care Group Sales Representative Name Role Phone Meme Steel MD Primary Care Provider [phone] Pcp, Pcp Primary Care Provider Guadalupe Sosa MD Primary Care Provider [phone] Sena Dominguez Unavailable [phone] Levy Barry MD Primary Care Provider [phone] Source Comments The information that you have received may contain highly confidential and/or federally protected health information. This information has been disclosed to you from records protected by [facility]. The law prohibits you from [...] error, please contact the sender immediately.[facility] ([facility]) Encounter Details Date Type Department Care Team (Late st Contact Info) Description 05/12/2005 Historical Note [facility] [employer] System Devyn Vásquez MD [address] [place] [address] [phone] Social History Tobacco Use Types Packs/Day Years Used Date Smoking Tobacco: Never Assessed Comments Unknown Sex and Gender Information Value Date Recorded Sex Assigned at Not on file Legal Sex Female 1:04 AM EDT Gender Identity Not on file Sexual Orientation Not on file documented as of this encounter Plan of Treatment Upcoming Encounters Date Type Department Care Team ([facility] st Contact Info) Description 10/10/2025 10:00 AM EST Office Visit LEATHA CARRILLO - [facility] 23[address] [facility] [address] [place] [phone] Brenda Clay MD 2315 [facility] [address] [place] [address] 04/15/2026 10:00 AM EDT Office Visit [facility]HA [facility] at [facility] + [facility] 4[address] [facility] [address] [place] [phone] Sena Dominguez PA 4247 [facility] [place] [address] documented as of this encounter Visit Diagnoses Not on filedocumented in this encounter Care Teams Group Sales Representative Relationship Specialty Start Date End Date Meme Steel MD [address] [place] [address] 105 [place] [address] PCP - General Pediatrics 06/05/18 04/25/22 No Pcp, Pcp PCP - General 06/08/22 07/19/22 Guadalupe Mcbride MD PCP - General Family Medicine 07/20/22 11/01/23 Sena Dominguez PA [address] [place] [address] [place] [address] PCP - BRADY Physician Dry Cell Battery Assembler 11/02/23 Leyv Barry MD [address] [place] [address] [place] [address] PCP - General Family Medicine 12/20/23 documented as of this encounter
--- OUTSIDE RECORDS SUMMARY | 2025-09-18 11:42 | XMS_ITS | Encounter Summary ---
Author Organization [facility] work ([facility]) Address [address] [place] [address] Care Team Providers Care Conduit Bender Name Role Phone Meme Steel MD Primary Care Provider [phone] Pcp, Pcp Primary Care Provider Guadalupe Sosa MD Primary Care Provider [phone] Sena Dominguez Unavailable [phone] Levy Barry MD Primary Care Provider [phone] Source Comments The information that you have received may contain highly confidential and/or federally protected health information. This information has been disclosed to you from records protected by [facility]. The law prohibits you from [...] Contact Info) Description 03/10/2009 Historical Note [facility] [employer] System Devyn Vásquez MD [address] [place] [address] [phone] Social History Tobacco Use Types Packs/Day Years [...] CARRILLO - [facility] at [facility] 2315 [facility] [address]30 [place] [phone] Brenda Clay MD 2315 [facility] [address] [place] [address] 04/15/2026 10:00 AM EDT Office Visit [facility]HA [facility] at [facility] + [facility] [address] [facility] 105 [place] [phone] Sena Dominguez PA 4247 [facility] [place] [address] documented as of this encounter Visit Diagnoses Not on filedocumented in this encounter Care Teams Conduit Bender Relationship Specialty Start Date End Date Meme Steel MD [address] [place] [address] 105 [place] [address] PCP - General Pediatrics 06/05/18 04/25/22 No Pcp, Pcp PCP - General 06/08/22 07/19/22 Guadalupe Mcbride MD PCP - General Family Medicine 07/20/22 11/01/23 Sena Dominguez PA [address] [place] [address] [place] [address] PCP - BRADY Physician Tanner Rotary Drum Continuous Process 11/02/23 Levy Barry MD [address] [place] [address] [place] [address] PCP - General Family Medicine 12/20/23 documented as of this encounter
--- OUTSIDE RECORDS SUMMARY | 2025-09-18 11:42 | XMS_ITS | Encounter Summary ---
Author Organization [facility] work ([facility]) Address [address] [place] [address] Care Team Providers Care Atmospheric Physics Professor Name Role Phone Meme Steel MD Primary Care Provider [phone] Pcp, Pcp Primary Care Provider Guadalupe Sosa MD Primary Care Provider [phone] Sena Dominguez Unavailable [phone] Levy Barry MD Primary Care Provider [phone] Source Comments The information that you have [...] please contact the sender immediately.[facility] ([facility]) Encounter Details Date Type Department Care Team (Late st Contact Info) Description 2004 Historical Note [facility] [employer] System Devyn Vásquez MD [address] [place] [address] [phone] Social History Tobacco Use Types Packs/Day Years Used Date Smoking Tobacco: Never Assessed Comments Unknown Sex and Gender Information Value Date Recorded Sex Assigned at Not on file Legal Sex Female 1:04 AM EDT Gender Identity Not on file Sexual Orientation Not on file documented as of this encounter Plan of Treatment Upcoming Encounters Date Type Department Care Team ([facility] st Contact Info) Description 10/10/2025 10:00 AM EST Office Visit LEATHA [facility]LL[facility] - [facility] 2315 [facility] G30 [place] [phone] Brenda Clay MD 2315 [facility] [address] [place] [phone] 04/15/2026 10:00 AM EDT Office Visit [facility]HA [facility] + [facility] 4247 [facility] 105 [place] [phone] Sena Dominguez [place] [address] [facility] [place] [address] documented as of this encounter Visit Diagnoses Not on filedocumented in this encounter Care Teams Atmospheric Physics Professor Relationship Specialty Start Date End Date Meme Steel MD [address] [place] [address] 105 [place] [address] PCP - General Pediatrics 06/05/18 04/25/22 No Pcp, Pcp PCP - General 06/08/22 07/19/22 Guadalupe Mcbride MD PCP - General Family Medicine 07/20/22 11/01/23 Sena Dominguez PA [address] [place] [address] [place] [address] PCP - BRADY Physician Automatic Lump Making Machine Tender 11/02/23 Levy Barry MD [address] [place] [address] [place] [address] PCP - General Family Medicine 12/20/23 documented as of this encounter
--- OUTSIDE RECORDS SUMMARY | 2025-09-18 11:42 | XMS_ITS | Encounter Summary ---
Author Organization [facility] work ([facility]) Address [address] [place] [address] Care Team Providers Care Digester Cook Name Role Phone Meme Steel MD Primary Care Provider [phone] Pcp, Pcp Primary Care Provider Guadalupe Sosa MD Primary Care Provider [phone] Sena Dominguez Unavailable [phone] Levy Barry MD Primary Care Provider [phone] Source Comments The information that you have received may contain highly confidential and/or federally protected health information. This information has been disclosed to you from records protected by [facility]. The law prohibits you [...] contact the sender immediately.[facility] ([facility]) Encounter Details Date Type Department Care Team (Late st Contact Info) Description 09/15/2015 Historical Note [facility] [employer] System Devyn Vásquez MD [address] [place] [address] [phone] Social History Tobacco Use Types Packs/Day Years [...] CARRILLO - [facility] 2315 [facility] [address] [place] [phone] Brenda Clay MD 2315 [facility] [address] [place] [phone] 04/15/2026 10:00 AM EDT Office Visit LEATHA [facility] at [facility] + [facility] [facility] 105 [place] [phone] Sena Dominguez PA 4247 [facility] [place] [address] documented as of this encounter Visit Diagnoses Not on filedocumented in this encounter Care Teams Digester Cook Relationship Specialty Start Date End Date Meme Steel MD [address] [place] [address] 105 [place] [address] PCP - General Pediatrics 06/05/18 04/25/22 No Pcp, Pcp PCP - General 06/08/22 07/19/22 Guadaulpe Mcbride MD PCP - General Family Medicine 07/20/22 11/01/23 Sena Dominguez PA [address] [place] [address] [place] [address] PCP - BRADY Physician Door Tender 11/02/23 Levy Barry MD [address] [place] [address] [place] [address] PCP - General Family Medicine 12/20/23 documented as of this encounter
--- OUTSIDE RECORDS SUMMARY | 2025-09-18 11:42 | XMS_ITS | Encounter Summary ---
Author Organization [facility] work ([facility]) Address [address] [place] [address] Care Team Providers Care Crane Crew Supervisor Name Role Phone Meme Steel MD Primary Care Provider [phone] Pcp, Pcp Primary Care Provider Guadalupe Sosa MD Primary Care Provider [phone] Sena Dominguez Unavailable [phone] Levy Barry MD Primary Care Provider [...] please contact the sender immediately.[facility] ([facility]) Encounter Details Date Type Department Care Team (Late st Contact Info) Description 09/05/2008 Historical Note [facility] [employer] System Devyn Vásquez MD [address] [place] [address] [phone] Social History Tobacco Use Types Packs/Day Years Used Date Smoking Tobacco: Never Assessed Comments Unknown Sex and Gender Information Value Date Recorded Sex Assigned at Not on file Legal Sex Female 1:04 AM EDT Gender Identity Not on file Sexual Orientation Not on file documented as of this encounter Plan of Treatment Upcoming Encounters Date Type Department Care Team ([facility] st Contact Info) Description 10/10/2025 10:00 AM EST Office Visit LEATHA CARRILLO - [facility] 23[address] [facility] [address] [place] [phone] Brenda Clay MD 2315 [facility] [address] [place] [phone] 04/15/2026 10:00 AM EDT Office Visit LEATHA [facility] at [facility] + [facility] 4247 [facility] 105 [place] [phone] Sena Dominguez PA 4247 [facility] [place] [address] documented as of this encounter Visit Diagnoses Not on filedocumented in this encounter Care Teams Crane Crew Supervisor Relationship Specialty Start Date End Date Meme Steel MD [address] [place] [address] 105 [place] [address] PCP - General Pediatrics 06/05/18 04/25/22 No Pcp, Pcp PCP - General 06/08/22 07/19/22 Guadalupe Mcbride MD PCP - General Family Medicine 07/20/22 11/01/23 Sena Dominguez PA [address] [place] [address] [place] [address] PCP - BRADY Physician Sales Representative Adding Machines 11/02/23 Levy Barry MD [address] [place] [address] [place] [address] PCP - General Family Medicine 12/20/23 documented as of this encounter
--- OUTSIDE RECORDS SUMMARY | 2025-09-18 11:42 | XMS_ITS | Encounter Summary ---
Author Organization [facility] work ([facility]) Address [address] [place] [address] Care Team Providers Care Professor Of Environmental Science Name Role Phone Meme Steel MD Primary Care Provider [phone] Pcp, Pcp Primary Care Provider Guadalupe Sosa MD Primary Care Provider [phone] Sena Dominguez Unavailable [phone] Levy Barry MD Primary Care Provider [phone] Source Comments The information that you have [...] please contact the sender immediately.[facility] ([facility]) Encounter Details Date Type Department Care Team (Late st Contact Info) Description 10/02/2008 Historical Note [facility] [employer] System Devyn Vásquez MD [address] [place] [address] [phone] Social History Tobacco Use Types Packs/Day Years [...] LEATHA CARRILLO - [facility] 2315 [facility] G30 [place] [phone] Brenda Clay MD 2315 [facility] [address] [place] [phone] 04/15/2026 10:00 AM EDT Office Visit [facility] + [facility] 4247 [facility] 105 [place] [phone] Sena Dominguez PA 4247 [facility] [place] [address] documented as of this encounter Visit Diagnoses Not on filedocumented in this encounter Care Teams Professor Of Environmental Science Relationship Specialty Start Date End Date Meme Steel MD [address] [place] [address] 105 [place] [address] PCP - General Pediatrics 06/05/18 04/25/22 No Pcp, Pcp PCP - General 06/08/22 07/19/22 Guadalupe Mcbride MD PCP - General Family Medicine 07/20/22 11/01/23 Sena Dominguez PA [address] [place] [address] [place] [address] PCP - BRADY Physician Historian Research Assistant 11/02/23 Levy Barry MD [address] [place] [address] [place] [address] PCP - General Family Medicine 12/20/23 documented as of this encounter
--- OUTSIDE RECORDS SUMMARY | 2025-09-18 11:42 | XMS_ITS | Encounter Summary ---
Author Organization [facility] work ([facility] Address [address] [place] [address] Care Team Providers Care Transit Department Clerk Name Role Phone Meme Steel MD Primary Care Provider [phone] Pcp, Pcp Primary Care Provider Guadalupe Sosa MD Primary Care Provider [phone] Sena Dominguez Unavailable [phone] Levy Barry MD Primary Care Provider [...] please contact the sender immediately.[facility] ([facility] Encounter Details Date Type Department Care Team (Late st Contact Info) Description 10/01/2008 Historical Note [facility] [employer] System Devyn Vásquez MD [address] [place] [address] [phone] Social History Tobacco Use Types Packs/Day Years [...] LEATHA CARRILLO - [facility] 2315 [facility] [address]30 [place] [phone] Brenda Clay MD 2315 [facility] [address] [place] [phone] 04/15/2026 10:00 AM EDT Office Visit LEATHA [facility] at [facility] + [facility] 4247 [facility] 105 [place] [phone] Sena Dominguez PA 4247 [facility] [place] [address] documented as of this encounter Visit Diagnoses Not on filedocumented in this encounter Care Teams Transit Department Clerk Relationship Specialty Start Date End Date Meme Steel MD [address] [place] [address] 105 [place] [address] PCP - General Pediatrics 06/05/18 04/25/22 No Pcp, Pcp PCP - General 06/08/22 07/19/22 Guadalupe Mcbride MD PCP - General Family Medicine 07/20/22 11/01/23 Sena Dominguez PA [address] [place] [address] [place] [address] PCP - BRADY Physician Improvement Rn 11/02/23 Levy Barry MD [address] [place] [address] [place] [address] PCP - General Family Medicine 12/20/23 documented as of this encounter
--- OUTSIDE RECORDS SUMMARY | 2025-09-18 11:42 | XMS_ITS | Encounter Summary ---
Author Organization [facility] work ([facility]) Address [address] [place] [address] Care Team Providers Care Harness Brusher Name Role Phone Meme Steel MD Primary Care Provider [phone] Pcp, Pcp Primary Care Provider Guadalupe Sosa MD Primary Care Provider [phone] Sena Dominguez Unavailable [phone] Levy Barry MD Primary Care Provider [phone] Source Comments The information that you have [...] contact the sender immediately.[facility] ([facility]) Encounter Details Date Type Department Care Team (Late st Contact Info) Description 04/12/2005 Historical Note [facility] [employer] System Devyn Vásquez MD [address] [place] [address] [phone] Social History Tobacco Use Types Packs/Day Years [...] CARRILLO - [facility] [address] [facility] [address] [place] [phone] Brenda Clay MD 2315 [facility] [address] [place] [phone] 04/15/2026 10:00 AM EDT Office Visit LEATHA [facility] at [facility] + [facility] 4247 [facility] 105 [place] [phone] eSna Dominguez PA 4247 [facility] [place] [address] documented as of this encounter Visit Diagnoses Not on filedocumented in this encounter Care Teams Harness Brusher Relationship Specialty Start Date End Date Meme Steel MD [address] [place] [address] 105 [place] [address] PCP - General Pediatrics 06/05/18 04/25/22 No Pcp, Pcp PCP - General 06/08/22 07/19/22 Guadalupe Mcbride MD PCP - General Family Medicine 07/20/22 11/01/23 Sena Dominguez PA [address] [place] [address] [place] [address] PCP - BRADY Physician Choir Accompanist 11/02/23 Levy Barry MD [address] [place] [address] [place] [address] PCP - General Family Medicine 12/20/23 documented as of this encounter
--- OUTSIDE RECORDS SUMMARY | 2025-09-18 11:42 | XMS_ITS | Encounter Summary ---
Author Organization [facility] work ([facility]) Address [address] [place] [address] Care Team Providers Care Card Scraper Name Role Phone Meme Steel MD Primary Care Provider [phone] Pcp, Pcp Primary Care Provider Guadalupe Sosa MD Primary Care Provider [phone] Sena Dominguez Unavailable [phone] Levy Barry MD Primary Care Provider [phone] Source Comments The information that you have [...] Contact Info) Description 2004 Historical Note [facility] [employer] System Devyn Vásquez MD [address] [place] [address] [phone] Social History Tobacco Use Types Packs/Day [...] LEATHA CARRILLO - [facility] 2315 [facility] [address]30 [place] [phone] Brenda Clay MD 2315 [facility] [address] [place] [phone] 04/15/2026 10:00 AM EDT Office Visit LEATHA [facility] at [facility] + [facility] 4247 [facility] 105 [place] [phone] Sena Dominguez PA 4247 [facility] [place] [address] documented as of this encounter Visit Diagnoses Not on filedocumented in this encounter Care Teams Card Scraper Relationship Specialty Start Date End Date Meme Steel MD [address] [place] [address] 105 [place] [address] PCP - General Pediatrics 06/05/18 04/25/22 No Pcp, Pcp PCP - General 06/08/22 07/19/22 Guadalupe Mcbride MD PCP - General Family Medicine 07/20/22 11/01/23 Sena Dominguez PA [address] [place] [address] [place] [address] PCP - BRADY Physician Manager Underwriting 11/02/23 Levy Barry MD [address] [place] [address] [place] [address] PCP - General Family Medicine 12/20/23 documented as of this encounter
--- OUTSIDE RECORDS SUMMARY | 2025-09-18 11:42 | XMS_ITS | Encounter Summary ---
Author Organization [facility] work ([facility]) Address [address] [place] [address] Care Team Providers Care Varnishing Unit Tool Setter Name Role Phone Meme Steel MD Primary Care Provider [phone] Pcp, Pcp Primary Care Provider Guadalupe Sosa MD Primary Care Provider [phone] Sena Dominguez Unavailable [phone] Levy Barry MD Primary Care Provider [phone] Source Comments The information that you have [...] immediately.[facility] ([facility]) Encounter Details Date Type Department Care Team (Late st Contact Info) Description 2004 Historical Note [facility] [employer] System Devyn Vásquez MD [address] [place] [address] [phone] Social History Tobacco Use Types Packs/Day Years [...] Visit LEATHA CARRILLO - [facility] 2315 [facility] G30 [place] [phone] Brenda Clay MD 2315 [facility] [address] [place] [phone] 04/15/2026 10:00 AM EDT Office Visit LEATHA [facility] at [facility] + [facility] [address] [facility] 105 [place] [phone] Sena Dominguez PA 4247 [facility] [place] [address] documented as of this encounter Visit Diagnoses Not on filedocumented in this encounter Care Teams Varnishing Unit Tool Setter Relationship Specialty Start Date End Date Meme Steel MD [address] [place] [address] 105 [place] [address] PCP - General Pediatrics 06/05/18 04/25/22 No Pcp, Pcp PCP - General 06/08/22 07/19/22 Guadalupe Mcbride MD PCP - General Family Medicine 07/20/22 11/01/23 Sena Dominguez PA [address] [place] [address] [place] [address] PCP - BRADY Physician First Aid Teacher 11/02/23 Levy Barry MD [address] [place] [address] [place] [address] PCP - General Family Medicine 12/20/23 documented as of this encounter
--- OUTSIDE RECORDS SUMMARY | 2025-09-18 11:42 | XMS_ITS | Encounter Summary ---
Author Organization [facility] work ([facility]) Address [address] [facility] [address] [place] [address] Care Team Providers Care Air Surveillance Operator Name Role Phone Meme Steel MD Primary Care Provider [phone] Pcp, Pcp Primary Care Provider Guadalupe Sosa MD Primary Care Provider [phone] Sena Dominguez Unavailable [phone] Levy Barry MD Primary Care Provider [phone] Source Comments The information that you have received may contain highly confidential and/or federally protected health information. This information has been disclosed to you from records protected by [facility]. The law prohibits you from [...] please contact the sender immediately.[facility] ([facility]) Encounter Details Date Type Department Care Team (Late st Contact Info) Description 2004 Historical Note [facility] [employer] [facility] Devyn Vásquez MD [address] [place] [address] [phone] Social History Tobacco Use Types Packs/Day Years [...] CARRILLO - [facility] at [facility] 2315 [facility] [address] [place] [phone] Brenda Clay MD 2315 [facility] [address] [place] [phone] 04/15/2026 10:00 AM EDT Office Visit [facility] at [facility] + [facility] 4247 [facility] 105 [place] [phone] Sena Dominguez PA 4247 [facility] [place] [address] documented as of this encounter Visit Diagnoses Not on filedocumented in this encounter Care Teams Air Surveillance Operator Relationship Specialty Start Date End Date Meme Steel MD [address] [place] [address] 105 [place] [address] PCP - General Pediatrics 06/05/18 04/25/22 No Pcp, Pcp PCP - General 06/08/22 07/19/22 Guadalupe Mcbride MD PCP - General Family Medicine 07/20/22 11/01/23 Sena Dominguez PA [address] [place] [address] [place] [address] PCP - BRADY Physician Landscape Contractor 11/02/23 Levy Barry MD [address] [place] [address] [place] [address] PCP - General Family Medicine 12/20/23 documented as of this encounter
--- OUTSIDE RECORDS SUMMARY | 2025-09-18 11:42 | XMS_ITS | Encounter Summary ---
Author Organization [facility] work ([facility]) Address [address] [place] [address] Care Team Providers Care Haul Cane Brakeman Name Role Phone Meme Steel MD Primary Care Provider [phone] Pcp, Pcp Primary Care Provider Guadalupe Sosa MD Primary Care Provider [phone] Snea Dominguez Unavailable [phone] Levy Barry MD Primary Care Provider [phone] Source Comments The information that you have [...] please contact the sender immediately.[facility] ([facility]) Encounter Details Date Type Department Care Team (Late st Contact Info) Description 08/17/2008 Historical Note [facility] [employer] [facility] Devyn Vásquez MD [address] [place] [address] [phone] Social History Tobacco Use Types Packs/Day Years [...] LEATHA CARRILLO - [facility] at [facility] 2315 [facility] G30 [place] [phone] Brenda Clay MD 2315 [facility] [address] [place] [phone] 04/15/2026 10:00 AM EDT Office Visit [facility]HA [facility] at [facility] + [facility] [address] [facility] 105 [place] [phone] Sena Dominguez PA 4247 [facility] [place] [address] documented as of this encounter Visit Diagnoses Not on filedocumented in this encounter Care Teams Haul Cane Brakeman Relationship Specialty Start Date End Date Meme Steel MD [address] [place] [address] 105 [place] [address] PCP - General Pediatrics 06/05/18 04/25/22 No Pcp, Pcp PCP - General 06/08/22 07/19/22 Guadalupe Mcbride MD PCP - General Family Medicine 07/20/22 11/01/23 Sena Dominguez PA [address] [place] [address] [place] [address] PCP - BRADY Physician Facs Teacher 11/02/23 Levy Barry MD [address] [place] [address] [place] [address] PCP - General Family Medicine 12/20/23 documented as of this encounter
--- OUTSIDE RECORDS SUMMARY | 2025-09-18 11:42 | XMS_ITS | Encounter Summary ---
Author Organization [facility] work ([facility]) Address [address] [place] [address] Care Team Providers Care Welfare Interviewer Name Role Phone Meme Steel MD Primary Care Provider [phone] Pcp, Pcp Primary Care Provider Guadalupe Sosa MD Primary Care Provider [phone] Sena Dominguez Unavailable [phone] Levy Barry MD Primary Care Provider [phone] Source Comments The information that you have received may contain highly confidential and/or federally protected health information. This information has been disclosed to you from records protected by [facility]. The law prohibits you from making [...] please contact the sender immediately.[facility] ([facility]) Encounter Details Date Type Department Care Team (Late st Contact Info) Description 08/06/2009 Historical Note [facility] [employer] [facility] Devyn Vásquez MD [address] [place] [address] [phone] Social History Tobacco Use Types Packs/Day Years [...] LEATHA CARRILLO - [facility] 23[address] [facility] [address] [place] [phone] Brenda Clay MD 2315 [facility] [address] [place] [phone] 04/15/2026 10:00 AM EDT Office Visit [facility] at [facility] 4247 [facility] 105 [place] [phone] Sena Dominguez PA 4247 [facility] [place] [address] documented as of this encounter Visit Diagnoses Not on filedocumented in this encounter Care Teams Welfare Interviewer Relationship Specialty Start Date End Date Meme Steel MD [address] [place] [address] 105 [place] [address] PCP - General Pediatrics 06/05/18 04/25/22 No Pcp, Pcp PCP - General 06/08/22 07/19/22 Guadalupe Mcbride MD PCP - General Family Medicine 07/20/22 11/01/23 Sena Dominguez PA [address] [place] [address] [place] [address] PCP - BRADY Physician Rehab Aide 11/02/23 Levy Barry MD [address] [place] [address] [place] [address] PCP - General Family Medicine 12/20/23 documented as of this encounter
--- OUTSIDE RECORDS SUMMARY | 2025-09-18 11:42 | XMS_ITS | Encounter Summary ---
Author Organization [facility] work ([facility]) Address [address] [place] [address] Care Team Providers Care Polyethylene Bag Machine Operator Name Role Phone Meme Steel MD Primary Care Provider [phone] Pcp, Pcp Primary Care Provider Guadalupe Sosa MD Primary Care Provider [phone] Sena Dominguez Unavailable [phone] Levy Barry MD Primary Care Provider [phone] Source Comments The information that you have [...] the sender immediately.[facility] ([facility]) Encounter Details Date Type Department Care Team (Late st Contact Info) Description 04/12/2005 Historical Note [facility] [employer] [facility] Devyn Vásquez MD [address] [place] [address] [phone] Social History Tobacco Use Types Packs/Day Years [...] LEATHA CARRILLO - [facility] at [facility] [address] [facility] [address] [place] [phone] Brenda Clay MD 2315 [facility] [address] [place] [phone] 04/15/2026 10:00 AM EDT Office Visit [facility]HA [facility] at [facility] + [facility] 4247 [facility] 105 [place] [phone] Sena Dominguez PA 4247 [facility] [place] [address] documented as of this encounter Visit Diagnoses Not on filedocumented in this encounter Care Teams Polyethylene Bag Machine Operator Relationship Specialty Start Date End Date Meme Steel MD [address] [place] [address] 105 [place] [address] PCP - General Pediatrics 06/05/18 04/25/22 No Pcp, Pcp PCP - General 06/08/22 07/19/22 Guadalupe Mcbride MD PCP - General Family Medicine 07/20/22 11/01/23 Sena Dominguez PA [address] [place] [address] [place] [address] PCP - BRADY Physician Nuclear Plant Instrument Technician 11/02/23 Lvey Barry MD [address] [place] [address] [place] [address] PCP - General Family Medicine 12/20/23 documented as of this encounter
--- OUTSIDE RECORDS SUMMARY | 2025-09-18 11:42 | XMS_ITS | Encounter Summary ---
Author Organization [facility] work ([facility]) Address [address] [place] [address] Care Team Providers Care Electronic Maintenance Supervisor Name Role Phone Meme Steel MD Primary Care Provider [phone] Pcp, Pcp Primary Care Provider Guadalupe Sosa MD Primary Care Provider Sena Dominguez Unavailable [phone] Levy Barry MD Primary Care Provider [phone] Source Comments The information that you have [...] error, please contact the sender immediately.[facility] ([facility]) Encounter Details Date Type Department Care Team (Late st Contact Info) Description 10/05/2015 Historical Note [facility] [employer] [facility] Devyn Vásquez MD [address] [place] [address] [phone] Social History Tobacco Use Types Packs/Day Years [...] CARRILLO - [facility] at [facility] 2315 [facility] [address] [place] [phone] Brenda Clay MD 2315 [facility] [address] [place] [phone] 04/15/2026 10:00 AM EDT Office Visit [facility]HA [facility] at [facility] + [facility] 4247 [facility] 105 [place] [phone] Sena Dominguez PA 4247 [facility] [place] [address] documented as of this encounter Visit Diagnoses Not on filedocumented in this encounter Care Teams Electronic Maintenance Supervisor Relationship Specialty Start Date End Date Meme Steel MD [address] [place] [address] 105 [place] [address] PCP - General Pediatrics 06/05/18 04/25/22 No Pcp, Pcp PCP - General 06/08/22 07/19/22 Guadalupe Mcbride MD PCP - General Family Medicine 07/20/22 11/01/23 Sena Dominguez PA [address] [place] [address] [place] [address] PCP - BRADY Physician Director Money 11/02/23 Levy Barry MD [address] [place] [address] [place] [address] PCP - General Family Medicine 12/20/23 documented as of this encounter
--- OUTSIDE RECORDS SUMMARY | 2025-09-18 11:42 | XMS_ITS | Encounter Summary ---
Author Organization [facility] work ([facility]) Address [address] [place] [address] Care Team Providers Care Fabrication Supervisor Name Role Phone Meme Steel MD Primary Care Provider No Pcp, Pcp Primary Care Provider Guadalupe Sosa MD Primary Care Provider [phone] Sena Dominguez Unavailable [phone] Levy Barry MD Primary Care Provider [phone] Source Comments The information that you have [...] Contact Info) Description 08/12/2008 Historical Note [facility] [employer] [facility] Devyn Vásquez MD [address] [place] [address] [phone] Social History Tobacco Use Types Packs/Day Years Used Date Smoking Tobacco: Never Assessed Comments Unknown Sex and Gender Information Value Date Recorded Sex Assigned at Not on file Legal Sex Female 1:04 AM EDT Gender Identity Not on file Sexual Orientation Not on file documented as of this encounter Plan of Treatment Upcoming Encounters Date Type Department Care Team ([facility] st Contact Info) Description 10/10/2025 10:00 AM EST Office Visit LEATHA CARRILLO - [facility] 2315 [facility] [address]30 [place] [phone] Brenda Clay MD 2315 [facility] [address] [place] [phone] 04/15/2026 10:00 AM EDT Office Visit [facility]HA [facility] at [facility] + [facility] 4247 [facility] 105 [place] [phone] Sena Dominguez PA 4247 [facility] [place] [address] documented as of this encounter Visit Diagnoses Not on filedocumented in this encounter Care Teams Fabrication Supervisor Relationship Specialty Start Date End Date Meme Steel MD [address] [place] [address] 105 [place] [address] PCP - General Pediatrics 06/05/18 04/25/22 No Pcp, Pcp PCP - General 06/08/22 07/19/22 Guadalupe Mcbride MD PCP - General Family Medicine 07/20/22 11/01/23 Sena Dominguez PA [address] [place] [address] [place] [address] PCP - BRADY Physician Upholstery Covers Inspector 11/02/23 Levy Barry MD [address] [place] [address] [place] [address] PCP - General Family Medicine 12/20/23 documented as of this encounter
--- OUTSIDE RECORDS SUMMARY | 2025-09-18 11:42 | XMS_ITS | Encounter Summary ---
Author Organization [facility] work ([facility]) Address [address] [facility] [address] [place] [address] Care Team Providers Care Certification Officer Name Role Phone Meme Steel MD Primary Care Provider [phone] Pcp, Pcp Primary Care Provider Guadalupe Sosa MD Primary Care Provider [phone] Sena Dominguez Unavailable [phone] Levy Barry MD Primary Care Provider [phone] Source Comments The information that you have received may contain highly confidential and/or federally protected health information. This information has been disclosed to you from records protected by [facility]. The law prohibits you from making [...] error, please contact the sender immediately.[facility] ([facility]) Encounter Details Date Type Department Care Team (Late st Contact Info) Description 03/10/2009 Historical Note [facility] [employer] System Devyn Vásquez MD [address] [place] [address] [phone] Social History Tobacco Use Types Packs/Day Years [...] CARRILLO - [facility] 2315 [facility] G30 [place] [phone] Brenda Clay MD 2315 [facility] [address] [place] [phone] 04/15/2026 10:00 AM EDT Office Visit LEATHA [facility] at [facility] + [facility] 4247 [facility] 105 [place] [phone] Sena Dominguez PA 4247 [facility] [place] [address] documented as of this encounter Visit Diagnoses Not on filedocumented in this encounter Care Teams Certification Officer Relationship Specialty Start Date End Date Meme Steel MD [address] [place] [address] 105 [place] [address] PCP - General Pediatrics 06/05/18 04/25/22 No Pcp, Pcp PCP - General 06/08/22 07/19/22 Guadalupe Mcbride MD PCP - General Family Medicine 07/20/22 11/01/23 Sena Dominguez PA [address] [place] [address] [place] [address] PCP - BRADY Physician Mule Developer 11/02/23 Levy Barry MD [address] [place] [address] [place] [address] PCP - General Family Medicine 12/20/23 documented as of this encounter
--- OUTSIDE RECORDS SUMMARY | 2025-09-18 11:42 | XMS_ITS | Encounter Summary ---
Author Organization [facility] work ([facility]) Address [address] [facility] [address] [facility] [address] [place] [address] Care Team Providers Care Installation Drafter Name Role Phone Meme Steel MD Primary Care Provider [phone] Pcp, Pcp Primary Care Provider Guadalupe Sosa MD Primary Care Provider [phone] Sena Dominguez Unavailable [phone] Levy Barry MD Primary Care Provider [phone] Source Comments The information that you have [...] Contact Info) Description 01/26/2005 Historical Note [facility] [employer] System Devyn Vásquez MD [address] [place] [address] [phone] Social History Tobacco Use Types Packs/Day Years [...] LEATHA CARRILLO - [facility] 2315 [facility] [address]30 [place] [phone] Brenda Clay MD 2315 [facility] [address] [place] [phone] 04/15/2026 10:00 AM EDT Office Visit LEATHA [facility] at [place] [facility] + [facility] 4247 [facility] 105 [place] [phone] Sena Dominguez PA 4247 [facility] [place] [address] documented as of this encounter Visit Diagnoses Not on filedocumented in this encounter Care Teams Installation Drafter Relationship Specialty Start Date End Date Meme Steel MD [address] [place] [address] 105 [place] [address] PCP - General Pediatrics 06/05/18 04/25/22 No Pcp, Pcp PCP - General 06/08/22 07/19/22 Guadalupe Mcbride MD PCP - General Family Medicine 07/20/22 11/01/23 Sena Dominguez PA [address] [place] [address] [place] [address] PCP - BRADY Physician New Car Make Ready Worker 11/02/23 Levy Barry MD [address] [place] [address] [place] [address] PCP - General Family Medicine 12/20/23 documented as of this encounter
--- OUTSIDE RECORDS SUMMARY | 2025-09-18 11:42 | XMS_ITS | Encounter Summary ---
Author Organization [facility] work ([facility]) Address [address] [place] [address] Care Team Providers Care Art Psychotherapist Name Role Phone Meme Steel MD Primary Care Provider [phone] Pcp, Pcp Primary Care Provider Guadalupe Sosa MD Primary Care Provider [phone] Sena Dominguez Unavailable [phone] Levy Barry MD Primary Care Provider [phone] Source Comments The information that you have received may contain highly confidential and/or federally protected health information. This information has been disclosed to you from records protected by [facility]. The law prohibits you from [...] immediately.[facility] ([facility]) Encounter Details Date Type Department Care Team (Late st Contact Info) Description 2004 Historical Note [facility] [email or web address] System Devyn Vásquez MD [address] [place] [address] [phone] Social History Tobacco Use Types Packs/Day Years Used Date Smoking Tobacco: Never Assessed Comments Unknown Sex and Gender Information Value Date Recorded Sex Assigned at Not on file Legal Sex Female 1:04 AM EDT Gender Identity Not on file Sexual Orientation Not on file documented as of this encounter Plan of Treatment Upcoming Encounters Date Type Department Care Team ([facility] st Contact Info) Description 10/10/2025 10:00 AM EST Office Visit LEATHA CARRILLO - [facility] at [facility] 2315 [facility] [address] [place] [phone] Brenda Clay MD 2315 [facility] [address] [place] [phone] 04/15/2026 10:00 AM EDT Office Visit LEATHA Primary Care at [facility] + [facility] 4247 [facility] 105 [place] [phone] Sena Dominguez PA 4247 [facility] [place] [address] documented as of this encounter Visit Diagnoses Not on filedocumented in this encounter Care Teams Art Psychotherapist Relationship Specialty Start Date End Date Meme Steel MD [address] [place] [address] 105 [place] [address] PCP - General Pediatrics 06/05/18 04/25/22 No Pcp, Pcp PCP - General 06/08/22 07/19/22 Guadalupe Mcbride MD PCP - General Family Medicine 07/20/22 11/01/23 Sena Dominguez PA [address] [place] [address] [place] [address] PCP - BRADY Physician Lpc 11/02/23 Levy Barry MD [address] [place] [address] [place] [address] PCP - General Family Medicine 12/20/23 documented as of this encounter
--- OUTSIDE RECORDS SUMMARY | 2025-09-18 11:42 | XMS_ITS | Encounter Summary ---
Author Organization [facility] work ([facility]) Address [address] [place] [address] Care Team Providers Care Palliative Care Coordinator Name Role Phone Meme Steel MD Primary Care Provider [phone] No Pcp, Pcp Primary Care Provider Guadalupe Sosa MD Primary Care Provider [phone] Sena Dominguez Unavailable [phone] Levy Barry MD Primary Care Provider [phone] Source Comments The information that you have received may contain highly confidential and/or federally protected health information. This information has been disclosed to you from records protected by [facility]. The law prohibits you from [...] [facility] ([facility]) Encounter Details Date Type Department Care Team (Late st Contact Info) Description 03/31/2009 Historical Note [facility] [employer] System Devyn Vásquez MD [address] [place] [address] [phone] Social History Tobacco Use Types Packs/Day Years [...] - [facility] at [facility] 2315 [facility] [address]30 [place] [phone] Brenda Clay MD 2315 [facility] [address] [place] [address] 04/15/2026 10:00 AM EDT Office Visit LEATHA [facility] at [facility] + [facility] 4247 [facility] 105 [place] [phone] Sena Dominguez PA 4247 [facility] [place] [address] documented as of this encounter Visit Diagnoses Not on filedocumented in this encounter Care Teams Palliative Care Coordinator Relationship Specialty Start Date End Date Meme Steel MD [address] [place] [address] 105 [place] [address] PCP - General Pediatrics 06/05/18 04/25/22 No Pcp, Pcp PCP - General 06/08/22 07/19/22 Guadalupe Mcbride MD PCP - General Family Medicine 07/20/22 11/01/23 Sena Dominguez PA [address] [place] [address] [place] [address] PCP - BRADY Physician Tax Clerk 11/02/23 Levy Barry MD [address] [place] [address] [place] [address] PCP - General Family Medicine 12/20/23 documented as of this encounter
--- OUTSIDE RECORDS SUMMARY | 2025-09-18 11:42 | XMS_ITS | Encounter Summary ---
Author Organization [facility] work ([facility]) Address [address] [place] [address] Care Team Providers Care Gizzard Puller Name Role Phone Meme Steel MD Primary Care Provider No Pcp, Pcp Primary Care Provider Guadalupe Sosa MD Primary Care Provider [phone] Sena Dominguez Unavailable [phone] Levy Barry MD Primary Care Provider [phone] Source Comments The information that you have [...] please contact the sender immediately.[facility] ([facility]) Encounter Details Date Type Department Care Team (Late st Contact Info) Description 2004 Historical Note [facility] [employer] System Devyn Vásquez MD [address] [place] [address] [id number] Social History Tobacco Use Types Packs/Day Years [...] [facility] 2315 [facility] G[address] [place] [phone] Brenda Clay MD 2315 [facility] [address] [place] [address] 04/15/2026 10:00 AM EDT Office Visit LEATHA [facility] at [facility] + [facility] 4247 [facility] 105 [place] [phone] Sena Dominguez PA 4247 [facility] [place] [address] documented as of this encounter Visit Diagnoses Not on filedocumented in this encounter Care Teams Gizzard Puller Relationship Specialty Start Date End Date Meme Steel MD [address] [place] [address] 105 [place] [address] PCP - General Pediatrics 06/05/18 04/25/22 No Pcp, Pcp PCP - General 06/08/22 07/19/22 Guadalupe Mcbride MD PCP - General Family Medicine 07/20/22 11/01/23 Sena Dominguez PA [address] [place] [address] [place] [address] PCP - BRADY Physician Life Skills Coordinator 11/02/23 Levy Barry MD [address] [place] [address] [place] [address] PCP - General Family Medicine 12/20/23 documented as of this encounter
--- OUTSIDE RECORDS SUMMARY | 2025-09-18 11:42 | XMS_ITS | Encounter Summary ---
Author Organization [facility] work ([facility]) Address [address] [place] [address] Care Team Providers Care Thread Puller Name Role Phone Meme Steel MD Primary Care Provider [phone] Pcp, Pcp Primary Care Provider Guadalupe Sosa MD Primary Care Provider [phone] Sena Dominguez Unavailable [phone] Levy Barry MD Primary Care Provider [...] please contact the sender immediately.[facility] ([facility]) Encounter Details Date Type Department Care Team (Late st Contact Info) Description 2004 Historical Note [facility] [employer] System Devyn Vásquez MD [address] [place] [address] [phone] Social History Tobacco Use Types Packs/Day Years [...] LEATHA CARRILLO - [facility] 2315 [facility] G30 [place] [phone] Brenda Clay MD 2315 [facility] [address] [place] [address] 04/15/2026 10:00 AM EDT Office Visit LEATHA Primary Care at [facility] + [facility] 4247 [facility] 105 [place] [phone] Sena Dominguez PA 4247 [facility] [place] [address] documented as of this encounter Visit Diagnoses Not on filedocumented in this encounter Care Teams Thread Puller Relationship Specialty Start Date End Date Meme Steel MD [address] [place] [address] 105 [place] [address] PCP - General Pediatrics 06/05/18 04/25/22 No Pcp, Pcp PCP - General 06/08/22 07/19/22 Guadalupe Mcbride MD PCP - General Family Medicine 07/20/22 11/01/23 Sena Dominguez PA [address] [place] [address] [place] [address] PCP - BRADY Physician Pot Maker 11/02/23 Levy Barry MD [address] [place] [address] [place] [address] PCP - General Family Medicine 12/20/23 documented as of this encounter
--- OUTSIDE RECORDS SUMMARY | 2025-09-18 11:42 | XMS_ITS | Encounter Summary ---
Author Organization [facility] work ([facility]) Address [address] [place] [address] Care Team Providers Care Automatic Mold Sander Name Role Phone Meme Steel MD Primary Care Provider [phone] Pcp, Pcp Primary Care Provider Guadalupe Sosa MD Primary Care Provider [phone] Sena Dominguez Unavailable [phone] Levy Barry MD Primary Care Provider [...] contact the sender immediately.[facility] ([facility]) Encounter Details Date Type Department Care Team (Late st Contact Info) Description 05/28/2015 Historical Note [facility] [employer] System Devyn Vásquez MD [address] [place] [address] [phone] Social History Tobacco Use Types Packs/Day Years [...] CARRILLO - [facility] 2315 [facility] [address]30 [place] [phone] Brenda Clay MD 2315 [facility] [address] [place] [address] 04/15/2026 10:00 AM EDT Office Visit LEATHA Primary [facility] at [facility] 4247 [facility] 105 [place] [phone] Sena Dominguez PA 4247 [facility] [place] [address] documented as of this encounter Visit Diagnoses Not on filedocumented in this encounter Care Teams Automatic Mold Sander Relationship Specialty Start Date End Date Meme Steel MD [address] [place] [address] 105 [place] [address] PCP - General Pediatrics 06/05/18 04/25/22 No Pcp, Pcp PCP - General 06/08/22 07/19/22 Guadalupe Mcbride MD PCP - General Family Medicine 07/20/22 11/01/23 Sena Dominguez PA [address] [place] [address] [place] [address] PCP - BRADY Physician Clinical Admissions Manager 11/02/23 Levy Barry MD [address] [place] [address] [place] [address] PCP - General Family Medicine 12/20/23 documented as of this encounter
--- OUTSIDE RECORDS SUMMARY | 2025-09-18 11:42 | XMS_ITS | Encounter Summary ---
Author Organization [facility] work ([facility]) Address [address] [place] [address] Care Team Providers Care Community Health Advisor Name Role Phone Meme Steel MD Primary Care Provider [phone] Pcp, Pcp Primary Care Provider Guadalupe Sosa MD Primary Care Provider [phone] Sena Dominguez Unavailable [phone] Levy Barry MD Primary Care Provider [phone] Source Comments The information that you have [...] contact the sender immediately.[facility] ([facility]) Encounter Details Date Type Department Care Team (Late st Contact Info) Description 09/15/2015 Historical Note [facility] [employer] System Devyn Vásqeuz MD [address] [place] [address] [phone] Social History Tobacco Use Types Packs/Day Years [...] CARRILLO - [facility] 2315 [facility] G30 [place] [phone] Brenda Clay MD 2315 [facility] [address] [place] [address] 04/15/2026 10:00 AM EDT Office Visit [facility] 4247 [facility] 105 [place] [phone] Sena Dominguez PA 4247 [facility] [place] [address] documented as of this encounter Visit Diagnoses Not on filedocumented in this encounter Care Teams Community Health Advisor Relationship Specialty Start Date End Date Meme Steel MD [address] [place] [address] 105 [place] [address] PCP - General Pediatrics 06/05/18 04/25/22 No Pcp, Pcp PCP - General 06/08/22 07/19/22 Guadalupe Mcbride MD PCP - General Family Medicine 07/20/22 11/01/23 Sena Dominguez PA [address] [place] [address] [place] [address] PCP - BRADY Physician Assistant Corporate Secretary 11/02/23 Levy Barry MD [address] [place] [address] [place] [address] PCP - General Family Medicine 12/20/23 documented as of this encounter
--- OUTSIDE RECORDS SUMMARY | 2025-09-18 11:42 | XMS_ITS | Encounter Summary ---
Author Organization [facility] work ([facility]) Address [address] [place] [address] Care Team Providers Care Explosives Detonator Name Role Phone Meme Steel MD Primary Care Provider [phone] Pcp, Pcp Primary Care Provider Guadalupe Sosa MD Primary Care Provider [phone] Sena Dominguez Unavailable [phone] Levy Barry MD Primary Care Provider Source Comments The information that you have received may contain highly confidential and/or federally protected health information. This information has been disclosed to you from records protected by [facility]. The law prohibits you from [...] sender immediately.[facility] ([facility]) Encounter Details Date Type Department Care Team (Late st Contact Info) Description 10/05/2015 Historical Note [facility] Tam[employer] System Devyn Vásquez MD [address] [place] [address] [phone] Social History Tobacco Use Types Packs/Day Years [...] CARRILLO - [facility] 2315 [facility] G30 [place] [phone] Brenda Clay MD 2315 [facility] [address] [place] [address] 04/15/2026 10:00 AM EDT Office Visit LEATHA Primary [facility] at [facility] 4247 [facility] 105 [place] [phone] Sena Dominguez PA 4247 [facility] [place] [address] documented as of this encounter Visit Diagnoses Not on filedocumented in this encounter Care Teams Explosives Detonator Relationship Specialty Start Date End Date Meme Steel MD [address] [place] [address] 105 [place] [address] PCP - General Pediatrics 06/05/18 04/25/22 No Pcp, Pcp PCP - General 06/08/22 07/19/22 Guadalupe Mcbride MD PCP - General Family Medicine 07/20/22 11/01/23 Sena Dominguez PA [address] [place] [address] [place] [address] PCP - BRADY Physician Rocket Test Fire Worker 11/02/23 Levy Barry MD [address] [place] [address] [place] [address] PCP - General Family Medicine 12/20/23 documented as of this encounter
--- OUTSIDE RECORDS SUMMARY | 2025-09-18 11:42 | XMS_ITS | Encounter Summary ---
Author Organization [facility] work ([facility]) Address [address] [place] [address] Care Team Providers Care Signal Worker Name Role Phone Meme Steel MD Primary Care Provider [phone] Pcp, Pcp Primary Care Provider Guadalupe Sosa MD Primary Care Provider [phone] Sena Dominguez Unavailable [phone] Levy Barry MD Primary Care Provider [phone] Source Comments The information that you have [...] Contact Info) Description 10/05/2015 Historical Note [facility] [employer] System Devyn Vásquez MD [address] [place] [address] [phone] Social History Tobacco Use Types Packs/Day Years Used Date Smoking Tobacco: Never Assessed Comments Unknown Sex and Gender Information Value Date Recorded Sex Assigned at Not on file Legal Sex Female 1:04 AM EDT Gender Identity Not on file Sexual Orientation Not on file documented as of this encounter Plan of Treatment Upcoming Encounters Date Type Department Care Team ([facility] st Contact Info) Description 10/10/2025 10:00 AM EST Office Visit LEATHA CARRILLO - [facility] at [facility] [address] [facility] G30 [place] [phone] Brenda Clay MD 2315 [facility] [address] [place] [phone] 04/15/2026 10:00 AM EDT Office Visit LEATHA Primary [facility] at [facility] + [facility] 4247 [facility] 105 [place] [phone] Sena Dominguez PA 4247 [facility] [place] [address] documented as of this encounter Visit Diagnoses Not on filedocumented in this encounter Care Teams Signal Worker Relationship Specialty Start Date End Date Meme Steel MD [address] [place] [address] 105 [place] [address] PCP - General Pediatrics 06/05/18 04/25/22 No Pcp, Pcp PCP - General 06/08/22 07/19/22 Guadalupe Mcbride MD PCP - General Family Medicine 07/20/22 11/01/23 Sena Dominguez PA [address] [place] [address] [place] [address] PCP - BRADY Physician Human Anatomy Teacher 11/02/23 Levy Barry MD [address] [place] [address] [place] [address] PCP - General Family Medicine 12/20/23 documented as of this encounter
--- OUTSIDE RECORDS SUMMARY | 2025-09-18 11:42 | XMS_ITS | Encounter Summary ---
Author Organization [facility] work ([facility]) Address [address] [place] [address] Care Team Providers Care Care Manager Name Role Phone Meme Steel MD Primary Care Provider [phone] Pcp, Pcp Primary Care Provider Guadalupe Sosa MD Primary Care Provider [phone] Sena Dominguez Unavailable [phone] Levy Barry MD Primary Care Provider [phone] Source Comments The information that you have [...] please contact the sender immediately.[facility] ([facility]) Encounter Details Date Type Department Care Team (Late st Contact Info) Description 10/06/2015 Historical Note [facility] [employer] System Devyn Vásquez MD [address] [place] [address] [phone] Social History Tobacco Use Types Packs/Day Years Used Date Smoking Tobacco: Never Assessed Comments Unknown Sex and Gender Information Value Date Recorded Sex Assigned at Not on file Legal Sex Female 1:04 AM EDT Gender Identity Not on file Sexual Orientation Not on file documented as of this encounter Plan of Treatment Upcoming Encounters Date Type Department Care Team ([facility] st Contact Info) Description 10/10/2025 10:00 AM EST Office Visit LEATHA CARRILLO - [facility] [address] [facility] [address] [place] [phone] Brenda Clay MD 2315 [facility] [address] [place] [phone] 04/15/2026 10:00 AM EDT Office Visit LEATHA [facility] at [facility] + [facility] 4247 [facility] 105 [place] [phone] Sena Dominguez PA 4247 [facility] [place] [address] documented as of this encounter Visit Diagnoses Not on filedocumented in this encounter Care Teams Care Manager Relationship Specialty Start Date End Date Meme Steel MD [address] [place] [address] 105 [place] [address] PCP - General Pediatrics 06/05/18 04/25/22 No Pcp, Pcp PCP - General 06/08/22 07/19/22 Guadalupe Mcbride MD PCP - General Family Medicine 07/20/22 11/01/23 Sena Dominguez PA [address] [place] [address] [place] [address] PCP - BRADY Physician Dragline Operator 11/02/23 Levy Barry MD [address] [place] [address] [place] [address] PCP - General Family Medicine 12/20/23 documented as of this encounter
--- OUTSIDE RECORDS SUMMARY | 2025-09-18 11:42 | XMS_ITS | Encounter Summary ---
Author Organization [facility] work ([facility]) Address [address] [place] [address] Care Team Providers Care Legal Investigator Name Role Phone Meme Steel MD Primary Care Provider [phone] Pcp, Pcp Primary Care Provider Guadalupe Sosa MD Primary Care Provider [phone] Sena Dominguez Unavailable [phone] Levy Barry MD Primary Care Provider [phone] Source Comments The information that you have [...] error, please contact the sender immediately.[facility] ([facility]) Encounter Details Date Type Department Care Team (Late st Contact Info) Description 05/28/2015 Historical Note [facility] [employer] System Devyn Vásquez MD [address] [place] [address] [phone] Social History Tobacco Use Types Packs/Day Years [...] CARRILLO - [facility] 2315 [facility] G30 [place] [phone] Brenda Clay MD 2315 [facility] [address] [place] [phone] 04/15/2026 10:00 AM EDT Office Visit LEATHA Primary Care at [facility] + [facility] 4247 [facility] 105 [place] [phone] Sena Domingeuz PA 4247 [facility] [place] [address] documented as of this encounter Visit Diagnoses Not on filedocumented in this encounter Care Teams Legal Investigator Relationship Specialty Start Date End Date Meme Steel MD [address] [place] [address] 105 [place] [address] PCP - General Pediatrics 06/05/18 04/25/22 No Pcp, Pcp PCP - General 06/08/22 07/19/22 Guadalupe Mcbride MD PCP - General Family Medicine 07/20/22 11/01/23 Sena Dominguez PA [address] [place] [address] [place] [address] PCP - BRADY Physician Comic Artist 11/02/23 Levy Barry MD [address] [place] [address] [place] [address] PCP - General Family Medicine 12/20/23 documented as of this encounter
--- OUTSIDE RECORDS SUMMARY | 2025-09-18 11:42 | XMS_ITS | Encounter Summary ---
Author Organization [facility] work ([facility]) Address [address] [place] [address] Care Team Providers Care Tent Assembler Name Role Phone Meme Steel MD Primary Care Provider [phone] Pcp, Pcp Primary Care Provider Guadalupe Sosa MD Primary Care Provider Sena Dominguez Unavailable [phone] Levy Barry MD Primary Care Provider [...] Info) Description 2004 Historical Note [facility] [employer] System Devyn Vásquez MD [address] [place] [address] [phone] Social History Tobacco Use Types Packs/Day Years Used Date Smoking Tobacco: Never Assessed Comments Unknown Sex and Gender Information Value Date Recorded Sex Assigned at Not on file Legal Sex Female 1:04 AM EDT Gender Identity Not on file Sexual Orientation Not on file documented as of this encounter Plan of Treatment Upcoming Encounters Date Type Department Care Team ([facility] st Contact Info) Description 10/10/2025 10:00 AM EST Office Visit LEATHA CARRILLO - [facility] 2315 [facility] G30 [place] [phone] Brenda Clay MD 2315 [facility] [address] [place] [phone] 04/15/2026 10:00 AM EDT Office Visit LEATHA Primary Care at [facility] + [facility] 4247 [facility] 105 [place] [phone] Sena Dominguez PA 4247 [facility] [place] [address] documented as of this encounter Visit Diagnoses Not on filedocumented in this encounter Care Teams Tent Assembler Relationship Specialty Start Date End Date Meme Steel MD [address] [place] [address] 105 [place] [address] PCP - General Pediatrics 06/05/18 04/25/22 No Pcp, Pcp PCP - General 06/08/22 07/19/22 Guadalupe Mcbride MD PCP - General Family Medicine 07/20/22 11/01/23 Sena Dominguez PA [address] [place] [address] [place] [address] PCP - BRADY Physician Profiling Machine Operator 11/02/23 Levy Barry MD [address] [place] [address] [place] [address] PCP - General Family Medicine 12/20/23 documented as of this encounter
--- OUTSIDE RECORDS SUMMARY | 2025-09-18 11:42 | XMS_ITS | Encounter Summary ---
Author Organization [facility] work ([facility]) Address [address] [address] [place] [address] Care Team Providers Care Travel Counselor Automobile Club Name Role Phone Meme Steel MD Primary Care Provider [phone] Pcp, Pcp Primary Care Provider Guadalupe Sosa MD Primary Care Provider [phone] Sena Dominguez Unavailable [phone] Levy Barry MD Primary Care Provider [phone] Source Comments The information that you have received may contain highly confidential and/or federally protected health information. This information has been disclosed to you from records protected by [facility]. The law prohibits you from making [...] please contact the sender immediately.[facility] ([facility]) Encounter Details Date Type Department Care Team (Late st Contact Info) Description 10/07/2015 Historical Note [facility] [employer] System Devyn Vásquez MD [address] [place] [address] [phone] Social History Tobacco Use Types Packs/Day Years [...] Office Visit LEATHA CARRILLO - [facility] [address] [facility] [address] [place] [phone] Brenda Clay MD 2315 [facility] [address] [place] [phone] 04/15/2026 10:00 AM EDT Office Visit LEATHA Primary [facility] at [facility] + [facility] 4247 [facility] 105 [place] [phone] Sena Dominguez PA 4247 [facility] [place] [address] documented as of this encounter Visit Diagnoses Not on filedocumented in this encounter Care Teams Travel Counselor Automobile Club Relationship Specialty Start Date End Date Meme Steel MD [address] [place] [address] 105 [place] [address] PCP - General Pediatrics 06/05/18 04/25/22 No Pcp, Pcp PCP - General 06/08/22 07/19/22 Guadalupe Mcbride MD PCP - General Family Medicine 07/20/22 11/01/23 Sena Dominguez PA [address] [place] [address] [place] [address] PCP - BRADY Physician Electroplating Worker 11/02/23 Levy Barry MD [address] [place] [address] [place] [address] PCP - General Family Medicine 12/20/23 documented as of this encounter
--- OUTSIDE RECORDS SUMMARY | 2025-09-18 11:42 | XMS_ITS | Encounter Summary ---
Author Organization [facility] work ([facility]) Address [address] [place] [address] Care Team Providers Care Diet Assistant Name Role Phone Meme Steel MD Primary Care Provider [phone] Pcp, Pcp Primary Care Provider Guadalupe Sosa MD Primary Care Provider [phone] Sena Dominguez Unavailable [phone] Levy Barry MD Primary Care Provider [phone] Source Comments The information that you have [...] contact the sender immediately.[facility] ([facility]) Encounter Details Date Type Department Care Team (Late st Contact Info) Description 2004 Historical Note [facility] frestyl System Devyn Vásquez MD [address] [place] [address] [phone] Social History Tobacco Use Types Packs/Day Years [...] LEATHA CARRILLO - [facility] 2315 [facility] G30 [place] [phone] Brenda Clay MD 2315 [facility] [address] [place] [phone] 04/15/2026 10:00 AM EDT Office Visit LEATHA [facility] at [facility] + [facility] 4247 [facility] 105 [place] [phone] Sena Dominguez PA 4247 [facility] [place] [address] documented as of this encounter Visit Diagnoses Not on filedocumented in this encounter Care Teams Diet Assistant Relationship Specialty Start Date End Date Meme Steel MD [address] [place] [address] 105 [place] [address] PCP - General Pediatrics 06/05/18 04/25/22 No Pcp, Pcp PCP - General 06/08/22 07/19/22 Guadalupe Mcbride MD PCP - General Family Medicine 07/20/22 11/01/23 Sena Dominguez PA [address] [place] [address] [place] [address] PCP - BRADY Physician Hair Baler 11/02/23 Levy Barry MD [address] [place] [address] [place] [address] PCP - General Family Medicine 12/20/23 documented as of this encounter
--- OUTSIDE RECORDS SUMMARY | 2025-09-18 11:42 | XMS_ITS | Encounter Summary ---
Author Organization [facility] work ([facility]) Address [address] [place] [address] Care Team Providers Care Highballer Name Role Phone Meme Steel MD Primary Care Provider [phone] Pcp, Pcp Primary Care Provider Guadalupe Sosa MD Primary Care Provider Sena Dominguez Unavailable [phone] Levy Barry MD Primary Care Provider [phone] Source Comments The information that you have received may contain highly confidential and/or federally protected health information. This information has been disclosed to you from records protected by [facility]. The law prohibits you from making any [...] the sender immediately.[facility] ([facility]) Encounter Details Date Type Department Care Team (Late st Contact Info) Description 09/01/2016 Historical Note [facility] [employer] System Devyn Vásquez MD [address] [place] [address] [phone] Social History Tobacco Use Types Packs/Day Years [...] LEATHA CARRILLO - [facility] 2315 [facility] [address]30 [place] [phone] Brenda Clay MD 2315 [facility] [address] [place] [phone] 04/15/2026 10:00 AM EDT Office Visit [facility] at [facility] + [facility] 4247 [facility] 105 [place] [phone] Sena Dominguez PA 4247 [facility] [place] [address] documented as of this encounter Visit Diagnoses Not on filedocumented in this encounter Care Teams Highballer Relationship Specialty Start Date End Date Meme Steel MD [address] [place] [address] 105 [place] [address] PCP - General Pediatrics 06/05/18 04/25/22 No Pcp, Pcp PCP - General 06/08/22 07/19/22 Guadalupe Mcbride MD PCP - General Family Medicine 07/20/22 11/01/23 Sena Dominguez PA [address] [place] [address] [place] [address] PCP - BRADY Physician Conduit Reamer Operator 11/02/23 Levy Barry MD [address] [place] [address] [place] [address] PCP - General Family Medicine 12/20/23 documented as of this encounter
--- OUTSIDE RECORDS SUMMARY | 2025-09-18 11:42 | XMS_ITS | Encounter Summary ---
Author Organization [facility] work ([facility]) Address [address] [place] [address] Care Team Providers Care Synthetic Cloth Binding Cutter Name Role Phone Meme Steel MD Primary Care Provider [phone] Pcp, Pcp Primary Care Provider Guadalupe Sosa MD Primary Care Provider [phone] Sena Dominguez Unavailable [phone] Levy Barry MD Primary Care Provider [phone] Source Comments The information that you have [...] contact the sender immediately.[facility] ([facility]) Encounter Details Date Type Department Care Team (Late st Contact Info) Description 10/27/2016 Historical Note [facility] [employer]kite System Devyn Vásquez MD [address] [place] [address] [phone] Social History Tobacco Use Types Packs/Day Years Used Date Smoking Tobacco: Never Assessed Comments Unknown Sex and Gender Information Value Date Recorded Sex Assigned at Not on file Legal Sex Female 1:04 AM EDT Gender Identity Not on file Sexual Orientation Not on file documented as of this encounter Plan of Treatment Upcoming Encounters Date Type Department Care Team ([facility] st Contact Info) Description 10/10/2025 10:00 AM EST Office Visit LEATHA CARRILLO - [facility] 2315 [facility] [address]30 [place] [phone] Brenda Clay MD 2315 [facility] [address] [place] [address] 04/15/2026 10:00 AM EDT Office Visit LEATHA [facility] at [facility] + [facility] 4247 [facility] 105 [place] [phone] Sena Dominguez PA 4247 [facility] [place] [address] documented as of this encounter Visit Diagnoses Not on filedocumented in this encounter Care Teams Synthetic Cloth Binding Cutter Relationship Specialty Start Date End Date Meme Steel MD [address] [place] [address] 105 [place] [address] PCP - General Pediatrics 06/05/18 04/25/22 No Pcp, Pcp PCP - General 06/08/22 07/19/22 Guadalupe Mcbride MD PCP - General Family Medicine 07/20/22 11/01/23 Sena Dominguez PA [address] [place] [address] [place] [address] PCP - BRADY Physician Stereotype Molder 11/02/23 Levy Barry MD [address] [place] [address] [place] [address] PCP - General Family Medicine 12/20/23 documented as of this encounter
--- OUTSIDE RECORDS SUMMARY | 2025-09-18 11:42 | XMS_ITS | Encounter Summary ---
Author Organization [facility] work ([facility]) Address [address] [place] [address] Care Team Providers Care Freight Traffic Consultant Name Role Phone Meme Steel MD Primary Care Provider [phone] Pcp, Pcp Primary Care Provider Guadalupe Sosa MD Primary Care Provider [phone] Sena Dominguez Unavailable [phone] Levy Barry MD Primary Care Provider [phone] Source Comments The information that you have received may contain highly confidential and/or federally protected health information. This information has been disclosed to you from records protected by [facility]. The law prohibits you [...] please contact the sender immediately.[facility] ([facility]) Encounter Details Date Type Department Care Team (Late st Contact Info) Description 04/08/2009 Historical Note [facility] [employer] System Devyn Vásquez MD [address] [place] [address] [phone] Social History Tobacco Use Types Packs/Day Years [...] LEATHA CARRILLO - [facility] 2315 [facility] G30 [place] [phone] Brenda Clay MD 2315 [facility] [address] [place] [phone] 04/15/2026 10:00 AM EDT Office Visit LEATHA Primary [facility] at [facility] + [facility] [address] [facility] 105 [place] [phone] Sena Dominguez PA 4247 [facility] [place] [address] documented as of this encounter Visit Diagnoses Not on filedocumented in this encounter Care Teams Freight Traffic Consultant Relationship Specialty Start Date End Date Meme Steel MD [address] [place] [address] 105 [place] [address] PCP - General Pediatrics 06/05/18 04/25/22 No Pcp, Pcp PCP - General 06/08/22 07/19/22 Guadalupe Mcbride MD PCP - General Family Medicine 07/20/22 11/01/23 Sena Dominguez PA [address] [place] [address] [place] [address] PCP - BRADY Physician Marina Dry Dock Manager 11/02/23 Levy Barry MD [address] [place] [address] [place] [address] PCP - General Family Medicine 12/20/23 documented as of this encounter
--- OUTSIDE RECORDS SUMMARY | 2025-09-18 11:42 | XMS_ITS | Encounter Summary ---
Author Organization [facility] work ([facility]) Address [address] [facility] [address] [facility] [address] [facility] [address] [place] [address] Care Team Providers Care Professor Of Genetics Name Role Phone Meme Steel MD Primary Care Provider [phone] Pcp, Pcp Primary Care Provider Guadalupe Sosa MD Primary Care Provider [phone] Sena Dominguez Unavailable [phone] Levy Barry MD Primary Care Provider [phone] Source Comments The information that you have [...] sender immediately.[facility] ([facility]) Encounter Details Date Type Department Care Team (Late st Contact Info) Description 10/23/2009 Historical Note [facility] Rypple System Devyn Vásquez MD [address] [place] [address] [phone] Social History Tobacco Use Types Packs/Day Years [...] - [facility] [address] [facility] [address] [place] [phone] Brenda Clay MD 2315 [facility] [address] [place] [address] 04/15/2026 10:00 AM EDT Office Visit LEATHA Primary [facility] at [facility] + [facility] 4247 [facility] 105 [place] [phone] Sena Dominguez PA 4247 [facility] [place] [address] documented as of this encounter Visit Diagnoses Not on filedocumented in this encounter Care Teams Professor Of Genetics Relationship Specialty Start Date End Date Meme Steel MD [address] [place] [address] 105 [place] [address] PCP - General Pediatrics 06/05/18 04/25/22 No Pcp, Pcp PCP - General 06/08/22 07/19/22 Guadalupe Mcbride MD PCP - General Family Medicine 07/20/22 11/01/23 Sena Dominguez PA [address] [place] [address] [place] [address] PCP - BRADY Physician Virtual Recruiter 11/02/23 Levy Barry MD [address] [place] [address] [place] [address] PCP - General Family Medicine 12/20/23 documented as of this encounter
--- OUTSIDE RECORDS SUMMARY | 2025-09-18 11:42 | XMS_ITS | Encounter Summary ---
Author Organization [facility] work ([facility]) Address [address] [place] [address] Care Team Providers Care Portable Irrigation Operator Name Role Phone Meme Steel MD Primary Care Provider [phone] Pcp, Pcp Primary Care Provider Guadalupe Sosa MD Primary Care Provider [phone] Sena Dominguez Unavailable [phone] Levy Barry MD Primary Care Provider [phone] Source Comments The information that you have [...] the sender immediately.[facility] ([facility]) Encounter Details Date Type Department Care Team (Late st Contact Info) Description 10/01/2008 Historical Note [facility] Zighra System Devyn Vásquez MD [address] [place] [address] [phone] Social History Tobacco Use Types Packs/Day Years [...] Visit LEATHA CARRILLO - [facility] 2315 [facility] [address]30 [place] [phone] Brenda Clay MD 2315 [facility] [address] [place] [phone] 04/15/2026 10:00 AM EDT Office Visit LEATHA [facility] at [facility] + [facility] 4247 [facility] 105 [place] [phone] Sena Dominguez PA 4247 [facility] [place] [address] documented as of this encounter Visit Diagnoses Not on filedocumented in this encounter Care Teams Portable Irrigation Operator Relationship Specialty Start Date End Date Meme Steel MD [address] [place] [address] 105 [place] [address] PCP - General Pediatrics 06/05/18 04/25/22 No Pcp, Pcp PCP - General 06/08/22 07/19/22 Guadalupe Mcbride MD PCP - General Family Medicine 07/20/22 11/01/23 Sena Dominguez PA [address] [place] [address] [place] [address] PCP - BRADY Physician Neighborhood Planner 11/02/23 Levy Barry MD [address] [place] [address] [place] [address] PCP - General Family Medicine 12/20/23 documented as of this encounter
--- OUTSIDE RECORDS SUMMARY | 2025-09-18 11:42 | XMS_ITS | Encounter Summary ---
Author Organization [facility] work ([facility]) Address [address] [place] [address] Care Team Providers Care Heat And Vent Aircraft Mechanic Name Role Phone Meme Steel MD Primary Care Provider [phone] Pcp, Pcp Primary Care Provider Guadalupe Sosa MD Primary Care Provider Sena Dominguez Unavailable [phone] Levy Barry MD Primary Care Provider Source Comments The information that you have received may contain highly confidential and/or federally protected health information. This information has been disclosed to you from records protected by [facility]. The law prohibits you from [...] contact the sender immediately.[facility] ([facility]) Encounter Details Date Type Department Care Team (Late st Contact Info) Description 10/27/2016 Historical Note [facility] [employer] System Devyn Vásquez MD [address] [place] [address] [phone] Social History Tobacco Use Types Packs/Day Years [...] Visit LEATHA CARRILLO - [facility] 2315 [facility] G30 [place] [phone] Brenda Clay MD 2315 [facility] [address] [place] [phone] 04/15/2026 10:00 AM EDT Office Visit LEATHA [facility] + [facility] 4247 [facility] 105 [place] [phone] Sena Dominguez PA 4247 [facility] [place] [address] documented as of this encounter Visit Diagnoses Not on filedocumented in this encounter Care Teams Heat And Vent Aircraft Mechanic Relationship Specialty Start Date End Date Meme Steel MD [address] [place] [address] 105 [place] [address] PCP - General Pediatrics 06/05/18 04/25/22 No Pcp, Pcp PCP - General 06/08/22 07/19/22 Guadalupe Mcbride MD PCP - General Family Medicine 07/20/22 11/01/23 Sena Dominguez PA [address] [place] [address] [place] [address] PCP - BRADY Physician Senior Data Scientist 11/02/23 Levy Barry MD [address] [place] [address] [place] [address] PCP - General Family Medicine 12/20/23 documented as of this encounter
--- OUTSIDE RECORDS SUMMARY | 2025-09-18 11:43 | XMS_ITS | Encounter Summary ---
Author Organization [facility] work ([facility]) Address [address] [place] [address] Care Team Providers Care Family Support Worker Name Role Phone Meme Steel MD Primary Care Provider [phone] Pcp, Pcp Primary Care Provider Guadalupe Sosa MD Primary Care Provider [phone] Sena Dominguez Unavailable [phone] Levy Barry MD Primary Care Provider [...] error, please contact the sender immediately.[facility] ([facility]) Encounter Details Date Type Department Care Team (Late st Contact Info) Description 04/09/2009 Historical Note [facility] Kiip System Devyn Vásquez MD [address] [place] [address] [phone] Social History Tobacco Use Types Packs/Day Years [...] Office Visit LEATHA CARRILLO - [facility] 2315 [facility] [address]30 [place] [phone] Brenda Clay MD 2315 [facility] [address] [place] [phone] 04/15/2026 10:00 AM EDT Office Visit LEATHA [facility] at [facility] + [facility] 4247 [facility] 105 [place] [phone] Sena Dominguez PA 4247 [facility] [place] [address] documented as of this encounter Visit Diagnoses Not on filedocumented in this encounter Care Teams Family Support Worker Relationship Specialty Start Date End Date Meme Steel MD [address] [place] [address] 105 [place] [address] PCP - General Pediatrics 06/05/18 04/25/22 No Pcp, Pcp PCP - General 06/08/22 07/19/22 Guadalupe Mcbride MD PCP - General Family Medicine 07/20/22 11/01/23 Sena Dominguez PA [address] [place] [address] [place] [address] PCP - BRADY Physician Dry Cell And Battery Assembler 11/02/23 Levy Barry MD [address] [place] [address] [place] [address] PCP - General Family Medicine 12/20/23 documented as of this encounter
--- OUTSIDE RECORDS SUMMARY | 2025-09-18 11:43 | XMS_ITS | Encounter Summary ---
Author Organization [facility] work ([facility]) Address [address] [place] [address] Care Team Providers Care Credit Support Counselor Name Role Phone Meme Steel MD Primary Care Provider [phone] Pcp, Pcp Primary Care Provider Guadalupe Sosa MD Primary Care Provider [phone] Sena Dominguez Unavailable [phone] Levy Barry MD Primary Care Provider [phone] Source Comments The information that you have [...] please contact the sender immediately.[facility] ([facility]) Encounter Details Date Type Department Care Team (Late st Contact Info) Description 02/07/2005 Historical Note [facility] Still[employer]ure System Devyn Vásquez MD [address] [place] [address] [phone] Social History Tobacco Use Types Packs/Day Years [...] - [facility] at [facility] [address] [facility] G30 [place] [phone] Brenda Clay MD 2315 [facility] [address] [place] [phone] 04/15/2026 10:00 AM EDT Office Visit LEATHA Primary [facility] at [facility] + [facility] 4247 [facility] 105 [place] [phone] Sena Dominguez PA 4247 [facility] [place] [address] documented as of this encounter Visit Diagnoses Not on filedocumented in this encounter Care Teams Credit Support Counselor Relationship Specialty Start Date End Date Meme Steel MD [address] [place] [address] 105 [place] [address] PCP - General Pediatrics 06/05/18 04/25/22 No Pcp, Pcp PCP - General 06/08/22 07/19/22 Guadalupe Mcbride MD PCP - General Family Medicine 07/20/22 11/01/23 Sena Dominguez PA [address] [place] [address] [place] [address] PCP - BRADY Physician Director Of Web Marketing 11/02/23 Levy Barry MD [address] [place] [address] [place] [address] PCP - General Family Medicine 12/20/23 documented as of this encounter
--- OUTSIDE RECORDS SUMMARY | 2025-09-18 11:43 | XMS_ITS | Encounter Summary ---
Author Organization [facility] work ([facility]) Address [address] [address] [place] [address] Care Team Providers Care Senior Solutions Workflow Consultant Name Role Phone Meme Steel MD Primary Care Provider [phone] Pcp, Pcp Primary Care Provider Guadalupe Sosa MD Primary Care Provider [phone] Sena Dominguez Unavailable [phone] Levy Barry MD Primary Care Provider [phone] Source Comments The information that you have [...] please contact the sender immediately.[facility] ([facility]) Encounter Details Date Type Department Care Team (Late st Contact Info) Description 01/07/2016 Historical Note [facility] [employer] System Devyn Vásquez MD [address] [place] [address] [phone] Social History Tobacco Use Types Packs/Day Years [...] Visit LEATHA CARRILLO - [facility] 2315 [facility] [address]30 [place] [phone] Brenda Clay MD 2315 [facility] [address] [place] [phone] 04/15/2026 10:00 AM EDT Office Visit LEATHA [facility] at [facility] + [facility] 4247 [facility] 105 [place] [phone] Sena Dominguez PA 4247 [facility] [place] [address] documented as of this encounter Visit Diagnoses Not on filedocumented in this encounter Care Teams Senior Solutions Workflow Consultant Relationship Specialty Start Date End Date Meme Steel MD [address] [place] [address] 105 [place] [address] PCP - General Pediatrics 06/05/18 04/25/22 No Pcp, Pcp PCP - General 06/08/22 07/19/22 Guadalupe Mcbride MD PCP - General Family Medicine 07/20/22 11/01/23 Sena Dominguez PA [address] [place] [address] [place] [address] PCP - BRADY Physician Laboratory Equipment Installer 11/02/23 Levy Barry MD [address] [place] [address] [place] [address] PCP - General Family Medicine 12/20/23 documented as of this encounter
--- OUTSIDE RECORDS SUMMARY | 2025-09-18 11:43 | XMS_ITS | Encounter Summary ---
Author Organization [facility] work ([facility]) Address [address] [place] [address] Care Team Providers Care Optimization Analyst Name Role Phone Meme Steel MD Primary Care Provider [phone] No Pcp, Pcp Primary Care Provider Guadalupe Sosa MD Primary Care Provider Sena Dominguez Unavailable Levy Barry MD Primary Care Provider [phone] Source Comments The information that you have [...] please contact the sender immediately.[facility] ([facility]) Encounter Details Date Type Department Care Team (Late st Contact Info) Description 04/09/2009 Historical Note [facility] [employer] System Devyn Vásquez MD [address] [place] [address] [phone] Social History Tobacco Use Types Packs/Day Years [...] LEATHA CARRILLO - [facility] 2315 [facility] G30 [place] [phone] Brenda Clay MD 2315 [facility] [address] [place] [phone] 04/15/2026 10:00 AM EDT Office Visit LEATHA [facility] at [facility] + [facility] 4247 [facility] 105 [place] [phone] Sena Dominguez PA 4247 [facility] [place] [address] documented as of this encounter Visit Diagnoses Not on filedocumented in this encounter Care Teams Optimization Analyst Relationship Specialty Start Date End Date Meme Steel MD [address] [place] [address] 105 [place] [address] PCP - General Pediatrics 06/05/18 04/25/22 No Pcp, Pcp PCP - General 06/08/22 07/19/22 Guadalupe Mcbride MD PCP - General Family Medicine 07/20/22 11/01/23 Sena Dominguez PA [address] [place] [address] [place] [address] PCP - BRADY Physician Developer Trading Systems 11/02/23 Levy Barry MD [address] [place] [address] [place] [address] PCP - General Family Medicine 12/20/23 documented as of this encounter
--- OUTSIDE RECORDS SUMMARY | 2025-09-18 11:43 | XMS_ITS | Encounter Summary ---
Author Organization [facility] work ([facility]) Address [address] [place] [address] Care Team Providers Care Change Release Manager Name Role Phone Meme Steel MD Primary Care Provider [phone] Pcp, Pcp Primary Care Provider Guadalupe Sosa MD Primary Care Provider [phone] Sena Dominguez Unavailable [phone] Levy Barry MD Primary Care Provider [phone] Source Comments The information that you have received may contain highly confidential and/or federally protected health information. This information has been disclosed to you from records protected by [facility]. The law prohibits you from [...] contact the sender immediately.[facility] ([facility]) Encounter Details Date Type Department Care Team (Late st Contact Info) Description 08/21/2014 Historical Note [facility] ADVIZE System Devyn Vásquez MD [address] [place] [address] [phone] Social History Tobacco Use Types Packs/Day Years [...] LEATHA CARRILLO - [facility] 2315 [facility] [address] [place] [phone] Brenda Clay MD 2315 [facility] [address] [place] [address] 04/15/2026 10:00 AM EDT Office Visit LEATHA Primary [facility] at [facility] + [facility] 4247 [facility] 105 [place] [phone] Sena Dominguez PA 4247 [facility] [place] [address] documented as of this encounter Visit Diagnoses Not on filedocumented in this encounter Care Teams Change Release Manager Relationship Specialty Start Date End Date Meme Steel MD [address] [place] [address] 105 [place] [address] PCP - General Pediatrics 06/05/18 04/25/22 No Pcp, Pcp PCP - General 06/08/22 07/19/22 Guadalupe Mcbride MD PCP - General Family Medicine 07/20/22 11/01/23 Sean Dominguez PA [address] [place] [address] [place] [address] PCP - BRADY Physician Manager Engagement 11/02/23 Levy Barry MD [address] [place] [address] [place] [address] PCP - General Family Medicine 12/20/23 documented as of this encounter
--- OUTSIDE RECORDS SUMMARY | 2025-09-18 11:43 | XMS_ITS | Encounter Summary ---
Author Organization [facility] work ([facility]) Address [address] [place] [address] Care Team Providers Care Senior Major Gifts Officer Name Role Phone Meme Steel MD Primary Care Provider [phone] Pcp, Pcp Primary Care Provider Guadalupe Sosa MD Primary Care Provider [phone] Sena Dominguez Unavailable [phone] Levy Barry MD Primary Care Provider [phone] Source Comments The information that you have [...] immediately.[facility] ([facility]) Encounter Details Date Type Department Care Team (Late st Contact Info) Description 02/18/2014 Historical Note [facility] RxCost Containment System Devyn Vásquez MD [address] [place] [address] [phone] Social History Tobacco Use Types Packs/Day Years [...] LEATHA CARRILLO - [facility] 2315 [facility] [address]30 [place] [phone] Brenda Clay MD 2315 [facility] [address] [place] [address] 04/15/2026 10:00 AM EDT Office Visit LEATHA Primary [facility] at [facility] + [facility] 4247 [facility] 105 [place] [phone] Sena Dominguez PA 4247 [facility] [place] [address] documented as of this encounter Visit Diagnoses Not on filedocumented in this encounter Care Teams Senior Major Gifts Officer Relationship Specialty Start Date End Date Meme Steel MD [address] [place] [address] 105 [place] [address] PCP - General Pediatrics 06/05/18 04/25/22 No Pcp, Pcp PCP - General 06/08/22 07/19/22 Guadalupe Mcbride MD PCP - General Family Medicine 07/20/22 11/01/23 Sena Dominguez PA [address] [place] [address] [place] [address] PCP - BRADY Physician Architectural Drafting Instructor 11/02/23 Levy Barry MD [address] [place] [address] [place] [address] PCP - General Family Medicine 12/20/23 documented as of this encounter
--- OUTSIDE RECORDS SUMMARY | 2025-09-18 11:43 | XMS_ITS | Encounter Summary ---
Author Organization [facility] work ([facility]) Address [address] [place] [address] Care Team Providers Care Medical Billing Assistant Name Role Phone Meme Steel MD Primary Care Provider [phone] Pcp, Pcp Primary Care Provider Guadalupe Sosa MD Primary Care Provider [phone] Sena Dominguez Unavailable [phone] Levy Barry MD Primary Care Provider [phone] Source Comments The information that you have [...] immediately.[facility] ([facility]) Encounter Details Date Type Department Care Team (Late st Contact Info) Description 12/31/2015 Historical Note [facility] Kaeuferportal System Devyn Vásquez MD [address] [place] [address] [phone] Social History Tobacco Use Types Packs/Day Years [...] CARRILLO - [facility] 2315 [facility] [address] [place] [phone] Brenda Clay MD 2315 [facility] [address] [place] [phone] 04/15/2026 10:00 AM EDT Office Visit LEATHA Primary [facility] at [facility] + [facility] [address] [facility] 105 [place] [phone] Sena Dominguez PA 4247 [facility] [place] [address] documented as of this encounter Visit Diagnoses Not on filedocumented in this encounter Care Teams Medical Billing Assistant Relationship Specialty Start Date End Date Meme Steel MD [address] [place] [address] 105 [place] [address] PCP - General Pediatrics 06/05/18 04/25/22 No Pcp, Pcp PCP - General 06/08/22 07/19/22 Guadalupe Mcbride MD PCP - General Family Medicine 07/20/22 11/01/23 Sena Dominguez PA [address] [place] [address] [place] [address] PCP - BRADY Physician Protein Purification Scientist 11/02/23 Levy Barry MD [address] [place] [address] [place] [address] PCP - General Family Medicine 12/20/23 documented as of this encounter
--- OUTSIDE RECORDS SUMMARY | 2025-09-18 11:43 | XMS_ITS | Encounter Summary ---
Author Organization [facility] work ([facility]) Address [address] [place] [address] Care Team Providers Care Haul Truck Driver Name Role Phone Meme Steel MD Primary Care Provider [phone] Pcp, Pcp Primary Care Provider Guadalupe Sosa MD Primary Care Provider [phone] Sena Dominguez Unavailable [phone] Levy Barry MD Primary Care Provider [phone] Source Comments The information that you have [...] contact the sender immediately.[facility] ([facility]) Encounter Details Date Type Department Care Team (Late st Contact Info) Description 04/10/2009 Historical Note [facility] Right Relevance System Devyn Vásquez MD [address] [place] [address] [phone] Social History Tobacco Use Types Packs/Day Years [...] CARRILLO - [facility] 2315 [facility] [address]30 [place] [phone] Brenda Clay MD 2315 [facility] [address] [place] [address] 04/15/2026 10:00 AM EDT Office Visit LEATHA [facility] at [facility] + [facility] 4247 [facility] 105 [place] [phone] Sena Dominguez PA 4247 [facility] [place] [address] documented as of this encounter Visit Diagnoses Not on filedocumented in this encounter Care Teams Haul Truck Driver Relationship Specialty Start Date End Date Meme Steel MD [address] [place] [address] 105 [place] [address] PCP - General Pediatrics 06/05/18 04/25/22 No Pcp, Pcp PCP - General 06/08/22 07/19/22 Guadalupe Mcbride MD PCP - General Family Medicine 07/20/22 11/01/23 Sena Dominguez PA [address] [place] [address] [place] [address] PCP - BRADY Physician Progressive Assembler And Fitter 11/02/23 Levy Barry MD [address] [place] [address] [place] [address] PCP - General Family Medicine 12/20/23 documented as of this encounter
--- OUTSIDE RECORDS SUMMARY | 2025-09-18 11:43 | XMS_ITS | Encounter Summary ---
Author Organization [facility] work ([facility]) Address [address] [facility] [address] [place] [address] Care Team Providers Care Tin Roller Hot Mill Name Role Phone Meme Steel MD Primary Care Provider [phone] Pcp, Pcp Primary Care Provider Guadalupe Sosa MD Primary Care Provider [phone] Sena Dominguez Unavailable [phone] Levy Barry MD Primary Care Provider [phone] Source Comments The information that you have [...] the sender immediately.[facility] ([facility]) Encounter Details Date Type Department Care Team (Late st Contact Info) Description 03/09/2005 Historical Note [facility] Lumora System Devyn Vásquez MD [address] [place] [address] [phone] Social History Tobacco Use Types Packs/Day Years [...] CARRILLO - [facility] 2315 [facility] G30 [place] [phone] Brenda Clay MD 2315 [facility] [address] [place] [phone] 04/15/2026 10:00 AM EDT Office Visit LEATHA [facility] at [facility] + [facility] 4247 [facility] 105 [place] [phone] Sena Dominguez PA 4247 [facility] [place] [address] documented as of this encounter Visit Diagnoses Not on filedocumented in this encounter Care Teams Tin Roller Hot Mill Relationship Specialty Start Date End Date Meme Steel MD [address] [place] [address] 105 [place] [address] PCP - General Pediatrics 06/05/18 04/25/22 No Pcp, Pcp PCP - General 06/08/22 07/19/22 Guadalupe Mcbride MD PCP - General Family Medicine 07/20/22 11/01/23 Sena Dominguez PA [address] [place] [address] [place] [address] PCP - BRADY Physician Machine Carton Marker 11/02/23 Levy Barry MD [address] [place] [address] [place] [address] PCP - General Family Medicine 12/20/23 documented as of this encounter
--- OUTSIDE RECORDS SUMMARY | 2025-09-18 11:43 | XMS_ITS | Encounter Summary ---
Author Organization [facility] work ([facility]) Address [address] [place] [address] Care Team Providers Care Printing Shop Supervisor Name Role Phone Meme Steel MD Primary Care Provider [phone] Pcp, Pcp Primary Care Provider Guadalupe Sosa MD Primary Care Provider [phone] Sena Dominguez Unavailable [phone] Levy Barry MD Primary Care Provider [phone] Source Comments The information that you have received may contain highly confidential and/or federally protected health information. This information has been disclosed to you from records protected by [facility]. The law prohibits you from making [...] please contact the sender immediately.[facility] ([facility]) Encounter Details Date Type Department Care Team (Late st Contact Info) Description 01/03/2008 Historical Note [facility] ZEturf System Devyn Vásquez MD [address] [place] [address] [phone] Social History Tobacco Use Types Packs/Day Years Used Date Smoking Tobacco: Never Assessed Comments Unknown Sex and Gender Information Value Date Recorded Sex Assigned at Not on file Legal Sex Female 1:04 AM EDT Gender Identity Not on file Sexual Orientation Not on file documented as of this encounter Plan of Treatment Upcoming Encounters Date Type Department Care Team ([facility] st Contact Info) Description 10/10/2025 10:00 AM EST Office Visit LEATHA [facility]RILLO - [facility] 2315 [facility] G30 [place] [phone] Brenda Clay MD 2315 [facility] [address] [place] [phone] 04/15/2026 10:00 AM EDT Office Visit LEATHA [facility] at [facility] + [facility] 4247 [facility] 105 [place] [phone] Sena Dominguez PA 4247 [facility] [place] [address] documented as of this encounter Visit Diagnoses Not on filedocumented in this encounter Care Teams Printing Shop Supervisor Relationship Specialty Start Date End Date Meme Steel MD [address] [place] [address] 105 [place] [address] PCP - General Pediatrics 06/05/18 04/25/22 No Pcp, Pcp PCP - General 06/08/22 07/19/22 Guadalupe Mcbride MD PCP - General Family Medicine 07/20/22 11/01/23 Sena Dominguez PA [address] [place] [address] [place] [address] PCP - BRADY Physician Flight Attendant 11/02/23 Levy Barry MD [address] [place] [address] [place] [address] PCP - General Family Medicine 12/20/23 documented as of this encounter
--- OUTSIDE RECORDS SUMMARY | 2025-09-18 11:43 | XMS_ITS | Encounter Summary ---
Author Organization [facility] work ([facility]) Address [address] [place] [address] Care Team Providers Care Sewing Supervisor Name Role Phone Meme Steel MD Primary Care Provider [phone] Pcp, Pcp Primary Care Provider Guadalupe Sosa MD Primary Care Provider [phone] Sena Dominguez Unavailable [phone] Levy Barry MD Primary Care Provider [phone] Source Comments The information that you have received may contain highly confidential and/or federally protected health information. This information has been disclosed to you from records protected by [facility]. The law prohibits you from making [...] [facility] [place] ([facility]) Encounter Details Date Type Department Care Team (Late st Contact Info) Description 04/09/2009 Historical Note [facility] Fab'entech System Devyn Vásquez MD [address] [place] [address] [phone] Social History Tobacco Use Types Packs/Day Years [...] Visit LEATHA CARRILLO - [facility] 2315 [facility] G30 [place] [phone] Brenda Clay MD 2315 [facility] [address] [place] [address] 04/15/2026 10:00 AM EDT Office Visit LEATHA Primary [facility] at [facility] 4247 [facility] 105 [place] [phone] Sena Dominguez PA 4247 [facility] [place] [address] documented as of this encounter Visit Diagnoses Not on filedocumented in this encounter Care Teams Sewing Supervisor Relationship Specialty Start Date End Date Meme Steel MD [address] [place] [address] 105 [place] [address] PCP - General Pediatrics 06/05/18 04/25/22 No Pcp, Pcp PCP - General 06/08/22 07/19/22 Guadalupe Mcbride MD PCP - General Family Medicine 07/20/22 11/01/23 Sena Dominguez PA [address] [place] [address] N[place] [address] PCP - BRADY Physician Endodontics Dentist 11/02/23 Levy Barry MD [address] [place] [address] [place] [address] PCP - General Family Medicine 12/20/23 documented as of this encounter
--- OUTSIDE RECORDS SUMMARY | 2025-09-18 11:43 | XMS_ITS | Encounter Summary ---
Author Organization [facility] work ([facility]) Address [address] [place] [address] Care Team Providers Care Traffic Operations Engineer Name Role Phone Meme Steel MD Primary Care Provider [phone] Pcp, Pcp Primary Care Provider Guadalupe Sosa MD Primary Care Provider [phone] Sena Dominguez Unavailable [phone] Levy Barry MD Primary Care Provider [phone] Source Comments The information that you have received may contain highly confidential and/or federally protected health information. This information has been disclosed to you from records protected by [facility]. The law prohibits you from making [...] please contact the sender immediately.[facility] ([facility]) Encounter Details Date Type Department Care Team (Late st Contact Info) Description 11/27/2015 Historical Note [facility] AeroDron System Devyn Vásquez MD [address] [place] [address] [phone] Social History Tobacco Use Types Packs/Day Years [...] CARRILLO - [facility] 2315 [facility] G30 [place] [phone] Brenda Clay MD 2315 [facility] [address] [place] [phone] 04/15/2026 10:00 AM EDT Office Visit LEATHA Primary [facility] at [facility] 4247 [facility] 105 [place] [phone] Sena Dominguez PA 4247 [facility] [place] [address] documented as of this encounter Visit Diagnoses Not on filedocumented in this encounter Care Teams Traffic Operations Engineer Relationship Specialty Start Date End Date Meme Steel MD [address] [place] [address] 105 [place] [address] PCP - General Pediatrics 06/05/18 04/25/22 No Pcp, Pcp PCP - General 06/08/22 07/19/22 Guadalupe Mcbride MD PCP - General Family Medicine 07/20/22 11/01/23 Sena Dominguez PA [address] [place] [address] [place] [address] PCP - BRADY Physician Clothing Trades Workers 11/02/23 Levy Barry MD [address] [place] [address] [place] [address] PCP - General Family Medicine 12/20/23 documented as of this encounter
--- OUTSIDE RECORDS SUMMARY | 2025-09-18 11:43 | XMS_ITS | Encounter Summary ---
Author Organization [facility] work ([facility]) Address [address] [place] [address] Care Team Providers Care Drafter Landscape Name Role Phone Meme Steel MD Primary Care Provider [phone] Pcp, Pcp Primary Care Provider Guadalupe Sosa MD Primary Care Provider [phone] Sena Dominguez Unavailable [phone] Levy Barry MD Primary Care Provider [phone] Source Comments The information that you have [...] please contact the sender immediately.[facility] ([facility]) Encounter Details Date Type Department Care Team (Late st Contact Info) Description 04/10/2009 Historical Note [facility] Skiipi System Devyn Vásquez MD [address] [place] [address] [phone] Social History Tobacco Use Types Packs/Day Years [...] [facility] 2315 [facility] G30 [place] [phone] Brenda Clay MD 2315 [facility] [address] [place] [phone] 04/15/2026 10:00 AM EDT Office Visit LEATHA Primary Care at [facility] + [facility] 4247 [facility] 105 [place] [phone] Sena Dominguez PA 4247 [facility] [place] [address] documented as of this encounter Visit Diagnoses Not on filedocumented in this encounter Care Teams Drafter Landscape Relationship Specialty Start Date End Date Meme Steel MD [address] [place] [address] 105 [place] [address] PCP - General Pediatrics 06/05/18 04/25/22 No Pcp, Pcp PCP - General 06/08/22 07/19/22 Guadalupe Mcbride MD PCP - General Family Medicine 07/20/22 11/01/23 Sena Dominguez PA [address] [place] [address] [place] [address] PCP - BRADY Physician Reclamation Supervisor 11/02/23 Levy Barry MD [address] [place] [address] [place] [address] PCP - General Family Medicine 12/20/23 documented as of this encounter
--- OUTSIDE RECORDS SUMMARY | 2025-09-18 11:43 | XMS_ITS | Encounter Summary ---
Author Organization [facility] work ([facility]) Address [address] [place] [address] Care Team Providers Care Book Or Script Editor Name Role Phone Meme Steel MD Primary Care Provider [phone] Pcp, Pcp Primary Care Provider Guadalupe Sosa MD Primary Care Provider [phone] Sena Dominguez Unavailable [phone] Levy Barry MD Primary Care Provider [phone] Source Comments The information that you have [...] please contact the sender immediately.[facility] ([facility]) Encounter Details Date Type Department Care Team (Late st Contact Info) Description 10/12/2015 Historical Note [facility] Spex Group System Devyn Vásquez MD [address] [place] [address] [phone] Social History Tobacco Use Types Packs/Day Years [...] Center at [facility] 2315 [facility] G30 [place] [phone] Brenda Clay MD 2315 [facility] [address] [place] [address] 04/15/2026 10:00 AM EDT Office Visit LEATHA Primary [facility] at [facility] + [facility] 4247 [facility] 105 [place] [phone] Sena Dominguez PA 4247 [facility] [place] [address] documented as of this encounter Visit Diagnoses Not on filedocumented in this encounter Care Teams Book Or Script Editor Relationship Specialty Start Date End Date Meme Steel MD [address] [place] [address] 105 [place] [address] PCP - General Pediatrics 06/05/18 04/25/22 No Pcp, Pcp PCP - General 06/08/22 07/19/22 Guadalupe Mcbride MD PCP - General Family Medicine 07/20/22 11/01/23 Sena Dominguez PA [address] [place] [address] [place] [address] PCP - BRADY Physician Skatesman 11/02/23 Levy Barry MD [address] [place] [address] [place] [address] PCP - General Family Medicine 12/20/23 documented as of this encounter
--- OUTSIDE RECORDS SUMMARY | 2025-09-18 11:43 | XMS_ITS | Encounter Summary ---
Author Organization [facility] work ([facility]) Address [address] [place] [address] Care Team Providers Care Regional Business Manager Name Role Phone Meme Steel MD Primary Care Provider [phone] Pcp, Pcp Primary Care Provider Guadalupe Sosa MD Primary Care Provider [phone] Sena Dominguez Unavailable [phone] Levy Barry MD Primary Care Provider [phone] Source Comments The information that you have [...] error, please contact the sender immediately.[facility] ([facility]) Encounter Details Date Type Department Care Team (Late st Contact Info) Description 01/26/2005 Historical Note [facility] ACHICA System Devyn Vásquez MD [address] [place] [address] [phone] Social History Tobacco Use Types Packs/Day Years [...] CARRILLO - [facility] 2315 [facility] G30 [place] [phone] Brenda Clay MD 2315 [facility] [address] [place] [phone] 04/15/2026 10:00 AM EDT Office Visit [facility] 4247 [facility] 105 [place] [phone] Sena Dominguez PA 4247 [facility] [place] [address] documented as of this encounter Visit Diagnoses Not on filedocumented in this encounter Care Teams Regional Business Manager Relationship Specialty Start Date End Date Meme Steel MD [address] [place] [address] 105 [place] [address] PCP - General Pediatrics 06/05/18 04/25/22 No Pcp, Pcp PCP - General 06/08/22 07/19/22 Guadalupe Mcbride MD PCP - General Family Medicine 07/20/22 11/01/23 Sena Dominguez PA [address] [place] [address] [place] [address] PCP - BRADY Physician Twx Operator 11/02/23 Levy Barry MD [address] [place] [address] [place] [address] PCP - General Family Medicine 12/20/23 documented as of this encounter
--- OUTSIDE RECORDS SUMMARY | 2025-09-18 11:43 | XMS_ITS | Encounter Summary ---
Author Organization [facility] work ([facility]) Address [address] [place] [address] Care Team Providers Care Machine Inspector Name Role Phone Meme Steel MD Primary Care Provider [phone] Pcp, Pcp Primary Care Provider Guadalupe Sosa MD Primary Care Provider Sena Dominguez Unavailable [phone] Levy Barry MD Primary Care Provider [phone] Source Comments The information that you have received may contain highly confidential and/or federally protected health information. This information has been disclosed to you from records protected by [facility]. The law prohibits you from [...] error, please contact the sender immediately.[facility] ([facility]) Encounter Details Date Type Department Care Team (Late st Contact Info) Description 04/08/2009 Historical Note [facility] Xceedium System Devyn Vásquez MD [address] [place] [address] [phone] Social History Tobacco Use Types Packs/Day Years [...] CARRILLO - [facility] 2315 [facility] G30 [place] [phone] Brenda Clay MD 2315 [facility] [address] [place] [phone] 04/15/2026 10:00 AM EDT Office Visit [facility]HA [facility] at [facility] + [facility] 4247 [facility] 105 [place] [phone] Sena Dominguez PA [address] [facility] [place] [address] documented as of this encounter Visit Diagnoses Not on filedocumented in this encounter Care Teams Machine Inspector Relationship Specialty Start Date End Date Meme Steel MD [address] [place] [address] 105 [place] [address] PCP - General Pediatrics 06/05/18 04/25/22 No Pcp, Pcp PCP - General 06/08/22 07/19/22 Guadalupe Mcbride MD PCP - General Family Medicine 07/20/22 11/01/23 Sena Dominguez PA [address] [place] [address] [place] [address] PCP - BRADY Physician Professor Of Violin 11/02/23 Levy Barry MD [address] [place] [address] [place] [address] PCP - General Family Medicine 12/20/23 documented as of this encounter
--- OUTSIDE RECORDS SUMMARY | 2025-09-18 11:43 | XMS_ITS | Encounter Summary ---
Author Organization [facility] work ([facility]) Address [address] [place] [address] Care Team Providers Care Dried Yeast Supervisor Name Role Phone Meme Steel MD Primary Care Provider [phone] Pcp, Pcp Primary Care Provider Guadalupe Sosa MD Primary Care Provider [phone] Sena Dominguez Unavailable [phone] Levy Barry MD Primary Care Provider [phone] Source Comments The information that you have [...] please contact the sender immediately.[facility] ([facility]) Encounter Details Date Type Department Care Team (Late st Contact Info) Description 11/27/2015 Historical Note [facility] Mlog System Devyn Vásquez MD [address] [place] [address] [phone] Social History Tobacco Use Types Packs/Day Years Used Date Smoking Tobacco: Never Assessed Comments Unknown Sex and Gender Information Value Date Recorded Sex Assigned at Not on file Legal Sex Female 1:04 AM EDT Gender Identity Not on file Sexual Orientation Not on file documented as of this encounter Plan of Treatment Upcoming Encounters Date Type Department Care Team ([facility] st Contact Info) Description 10/10/2025 10:00 AM EST Office Visit LEATHA CARRILLO - [facility] 2315 [facility] [address] [place] [phone] Brenda Clay MD 2315 [facility] [address] [place] [phone] 04/15/2026 10:00 AM EDT Office Visit [facility] 4247 [facility] 105 [place] [phone] Sena Dominguez PA 4247 [facility] [place] [address] documented as of this encounter Visit Diagnoses Not on filedocumented in this encounter Care Teams Dried Yeast Supervisor Relationship Specialty Start Date End Date Meme Steel MD [address] [place] [address] 105 [place] [address] PCP - General Pediatrics 06/05/18 04/25/22 No Pcp, Pcp PCP - General 06/08/22 07/19/22 Guadalupe Mcbride MD PCP - General Family Medicine 07/20/22 11/01/23 Sena Dominguez PA [address] [place] [address] [place] [address] PCP - BRADY Physician Estimating Engineer 11/02/23 Levy Barry MD [address] [place] [address] [place] [address] PCP - General Family Medicine 12/20/23 documented as of this encounter
--- OUTSIDE RECORDS SUMMARY | 2025-09-18 11:43 | XMS_ITS | Encounter Summary ---
Author Organization [facility] work ([facility]) Address [address] [place] [address] Care Team Providers Care Porcelain Buildup Assistant Name Role Phone Meme Steel MD Primary Care Provider [phone] Pcp, Pcp Primary Care Provider Guadalupe Sosa MD Primary Care Provider [phone] Sena Dominguez Unavailable [phone] Levy Barry MD Primary Care Provider [phone] Source Comments The information that you have [...] the sender immediately.[facility] ([facility]) Encounter Details Date Type Department Care Team (Late st Contact Info) Description 01/07/2016 Historical Note [facility] Prospect Accelerator System Devyn Vásquez MD [address] [place] [address] [phone] Social History Tobacco Use Types Packs/Day Years [...] CARRILLO - [facility] 2315 [facility] [address] [place] [phone] Brenda Clay MD 2315 [facility] [address] [place] [phone] 04/15/2026 10:00 AM EDT Office Visit [facility]HA [facility] at [facility] + [facility] 4247 [facility] 105 [place] [phone] Sena Dominguez PA 4247 [facility] [place] [address] documented as of this encounter Visit Diagnoses Not on filedocumented in this encounter Care Teams Porcelain Buildup Assistant Relationship Specialty Start Date End Date Meme Stele MD [address] [place] [address] 105 [place] [address] PCP - General Pediatrics 06/05/18 04/25/22 No Pcp, Pcp PCP - General 06/08/22 07/19/22 Guadalupe Mcbride MD PCP - General Family Medicine 07/20/22 11/01/23 Sena Dominguez PA [address] [place] [address] [place] [address] PCP - BRADY Physician Clinical Review Nurse 11/02/23 Levy Barry MD [address] [place] [address] [place] [address] PCP - General Family Medicine 12/20/23 documented as of this encounter
--- OUTSIDE RECORDS SUMMARY | 2025-09-18 11:43 | XMS_ITS | Encounter Summary ---
Author Organization [facility] work ([facility]) Address [address] [place] [address] Care Team Providers Care Finance Business Manager Name Role Phone Meme Steel MD Primary Care Provider [phone] Pcp, Pcp Primary Care Provider Guadalupe Sosa MD Primary Care Provider [phone] Sena Dominguez Unavailable [phone] Levy Barry MD Primary Care Provider [phone] Source Comments The information that you have received may contain highly confidential and/or federally protected health information. This information has been disclosed to you from records protected by [facility]. The law prohibits [...] Contact Info) Description 01/03/2008 Historical Note [facility] Priori Data System Devyn Vásquez MD [address] [place] [address] [phone] Social History Tobacco Use Types Packs/Day Years [...] [facility] 2315 [facility] [address] [place] [phone] Brenda Clay MD 2315 [facility] [address] [place] [phone] 04/15/2026 10:00 AM EDT Office Visit [facility] at [facility] + [facility] 4247 [facility] 105 [place] [phone] Sena Dominguez PA 4247 [facility] [place] [address] documented as of this encounter Visit Diagnoses Not on filedocumented in this encounter Care Teams Finance Business Manager Relationship Specialty Start Date End Date Meme Steel MD [address] [place] [address] 105 [place] [address] PCP - General Pediatrics 06/05/18 04/25/22 No Pcp, Pcp PCP - General 06/08/22 07/19/22 Guadalupe Mcbride MD PCP - General Family Medicine 07/20/22 11/01/23 Sena Dominguez PA [address] [place] [address] [place] [address] PCP - BRADY Physician Medical Records Analyst 11/02/23 Levy Barry MD [address] [place] [address] [place] [address] PCP - General Family Medicine 12/20/23 documented as of this encounter
--- OUTSIDE RECORDS SUMMARY | 2025-09-18 11:43 | XMS_ITS | Encounter Summary ---
Author Organization [facility] work ([facility]) Address [address] [place] [address] Care Team Providers Care Hotbed Lever Operator Name Role Phone Meme Steel MD Primary Care Provider [phone] Pcp, Pcp Primary Care Provider Guadalupe Sosa MD Primary Care Provider [phone] Sena Dominguez Unavailable [phone] Levy Barry MD Primary Care Provider [phone] Source Comments The information that you have received may contain highly confidential and/or federally protected health information. This information has been disclosed to you from records protected by [facility]. The law prohibits you from making [...] contact the sender immediately.[facility] ([facility]) Encounter Details Date Type Department Care Team (Late st Contact Info) Description 06/18/2014 Historical Note [facility] M[employer] System Devyn Vásquez MD [address] [place] [address] [phone] Social History Tobacco Use Types Packs/Day Years [...] - [facility] 2315 [facility] G30 [place] [phone] Brenda Clay MD 2315 [facility] [address] [place] [phone] 04/15/2026 10:00 AM EDT Office Visit [facility]HA Primary [facility] at [facility] + [facility] 4247 [facility] 105 [place] [phone] Sena Dominguez PA 4247 [facility] [place] [address] documented as of this encounter Visit Diagnoses Not on filedocumented in this encounter Care Teams Hotbed Lever Operator Relationship Specialty Start Date End Date Meme Steel MD [address] [place] [address] 105 [place] [address] PCP - General Pediatrics 06/05/18 04/25/22 No Pcp, Pcp PCP - General 06/08/22 07/19/22 Guadalupe Mcbride MD PCP - General Family Medicine 07/20/22 11/01/23 Sena Dominguez PA [address] [place] [address] [place] [address] PCP - BRADY Physician Planer Operator / Grader 11/02/23 Levy Barry MD [address] [place] [address] [place] [address] PCP - General Family Medicine 12/20/23 documented as of this encounter
--- OUTSIDE RECORDS SUMMARY | 2025-09-18 11:43 | XMS_ITS | Encounter Summary ---
Author Organization [facility] work ([facility]) Address [address] [place] [address] Care Team Providers Care Vehicle Damage Appraiser Name Role Phone Meme Steel MD Primary Care Provider [phone] Pcp, Pcp Primary Care Provider Guadalupe Sosa MD Primary Care Provider Sena Dominguez Unavailable [phone] Levy Barry MD Primary Care Provider [phone] Source Comments The information that you have received may contain highly confidential and/or federally protected health information. This information has been disclosed to you from records protected by [facility]. The law prohibits you from [...] please contact the sender immediately.[facility] ([facility]) Encounter Details Date Type Department Care Team (Late st Contact Info) Description 08/06/2009 Historical Note [facility] [employer] System Devyn Vásquez MD [address] [place] [address] [phone] Social History Tobacco Use Types Packs/Day Years [...] CARRILLO - [facility] 2315 [facility] [address]30 [place] [phone] Brenda Clay MD 2315 [facility] [address] [place] [address] 04/15/2026 10:00 AM EDT Office Visit [facility]HA [facility] at [facility] + [facility] 4247 [facility] 105 [place] [phone] Sena Dominguez PA 4247 [facility] [place] [address] documented as of this encounter Visit Diagnoses Not on filedocumented in this encounter Care Teams Vehicle Damage Appraiser Relationship Specialty Start Date End Date Meme Steel MD [address] [place] [address] 105 [place] [address] PCP - General Pediatrics 06/05/18 04/25/22 No Pcp, Pcp PCP - General 06/08/22 07/19/22 Guadalupe Mcbride MD PCP - General Family Medicine 07/20/22 11/01/23 Sena Dominguez PA [address] [place] [address] [place] [address] PCP - BRADY Physician Reefer Truck Driver 11/02/23 Levy Barry MD [address] [place] [address] [place] [address] PCP - General Family Medicine 12/20/23 documented as of this encounter
--- OUTSIDE RECORDS SUMMARY | 2025-09-18 11:43 | XMS_ITS | Encounter Summary ---
Author Organization [facility] work ([facility]) Address [address] [place] [address] Care Team Providers Care Storeroom Keeper Name Role Phone Meme Steel MD Primary Care Provider [phone] Pcp, Pcp Primary Care Provider Guadalupe Sosa MD Primary Care Provider [phone] Sena Dominguez Unavailable [phone] Levy Barry MD Primary Care Provider [phone] Source Comments The information that you have received may contain highly confidential and/or federally protected health information. This information has been disclosed to you from records protected by [facility]. The law prohibits you from making [...] Contact Info) Description 06/18/2014 Historical Note [facility] [employer] System Devyn Vásquez MD [address] [place] [address] [phone] Social History Tobacco Use Types Packs/Day Years [...] Visit LEATHA CARRILLO - [facility] 2315 [facility] G30 [place] [phone] Brenda Clay MD 2315 [facility] [address] [place] [phone] 04/15/2026 10:00 AM EDT Office Visit LEATHA [facility] at [facility] + [facility] 4247 [facility] 105 [place] [phone] Sena Dominguez PA 4247 [facility] [place] [address] documented as of this encounter Visit Diagnoses Not on filedocumented in this encounter Care Teams Storeroom Keeper Relationship Specialty Start Date End Date Meme Steel MD [address] [place] [address] 105 [place] [address] PCP - General Pediatrics 06/05/18 04/25/22 No Pcp, Pcp PCP - General 06/08/22 07/19/22 Guadalupe Mcbride MD PCP - General Family Medicine 07/20/22 11/01/23 Sena Dominguez PA [address] [place] [address] [place] [address] PCP - BRADY Physician Diamond Grader 11/02/23 Levy Barry MD [address] [place] [address] [place] [address] PCP - General Family Medicine 12/20/23 documented as of this encounter
--- OUTSIDE RECORDS SUMMARY | 2025-09-18 11:43 | XMS_ITS | Encounter Summary ---
Author Organization [facility] work ([facility]) Address [address] [place] [address] Care Team Providers Care Bundler Seasonal Greenery Name Role Phone Meme Steel MD Primary Care Provider [phone] Pcp, Pcp Primary Care Provider Guadalupe Sosa MD Primary Care Provider [phone] Sena Dominguez Unavailable [phone] Levy Barry MD Primary Care Provider [phone] Source Comments The information that you have received may contain highly confidential and/or federally protected health information. This information has been disclosed to you from records protected by [facility]. The law prohibits you from making [...] Contact Info) Description 01/28/2005 Historical Note [facility] hyperWALLET Systems System Devyn Vásquez MD [address] [place] [address] [phone] Social History Tobacco Use Types Packs/Day Years [...] Office Visit LEATHA CARRILLO - [facility] 2315 [facility] G30 [place] [phone] Brenda Clay MD 2315 [facility] [address] [place] [phone] 04/15/2026 10:00 AM EDT Office Visit [facility]HA [facility] at [facility] + [facility] 4247 [facility] 105 [place] [phone] Sena Dominguez PA 4247 [facility] [place] [address] documented as of this encounter Visit Diagnoses Not on filedocumented in this encounter Care Teams Bundler Seasonal Greenery Relationship Specialty Start Date End Date Meme Steel MD [address] [place] [address] 105 [place] [address] PCP - General Pediatrics 06/05/18 04/25/22 No Pcp, Pcp PCP - General 06/08/22 07/19/22 Guadalupe Mcbride MD PCP - General Family Medicine 07/20/22 11/01/23 Sena Dominguez PA [address] [place] [address] [place] [address] PCP - BRADY Physician Supervisor Weaving 11/02/23 Levy Barry MD [address] [place] [address] [place] [address] PCP - General Family Medicine 12/20/23 documented as of this encounter
--- OUTSIDE RECORDS SUMMARY | 2025-09-18 11:43 | XMS_ITS | Encounter Summary ---
Author Organization [facility] work ([facility]) Address [address] [place] [address] Care Team Providers Care Dexigraph Operator Name Role Phone Meme Steel MD Primary Care Provider [phone] Pcp, Pcp Primary Care Provider Guadalupe Sosa MD Primary Care Provider Sena Dominguez Unavailable [phone] Levy Barry MD Primary Care Provider [phone] Source Comments The information that you have received may contain highly confidential and/or federally protected health information. This information has been disclosed to you from records protected by [facility]. The law prohibits you from making [...] the sender immediately.[facility] ([facility]) Encounter Details Date Type Department Care Team (Late st Contact Info) Description 01/07/2016 Historical Note [facility] Hub[employer] System Devyn Vásquez MD [address] [place] [address] [phone] Social History Tobacco Use Types Packs/Day Years [...] CARRILLO - [facility] 2315 [facility] [address]30 [place] [phone] Brenda Clay MD 2315 [facility] [address] [place] [phone] 04/15/2026 10:00 AM EDT Office Visit LE[facility]HA [facility] at [facility] + [facility] 4247 [facility] 105 [place] [phone] Sena Dominguez PA 4247 [facility] [place] [address] documented as of this encounter Visit Diagnoses Not on filedocumented in this encounter Care Teams Dexigraph Operator Relationship Specialty Start Date End Date Meme Steel MD [address] [place] [address] 105 [place] [address] PCP - General Pediatrics 06/05/18 04/25/22 No Pcp, Pcp PCP - General 06/08/22 07/19/22 Guadalupe Mcbride MD PCP - General Family Medicine 07/20/22 11/01/23 Sena Dominguez PA [address] [place] [address] [place] [address] PCP - BRADY Physician Precision Inspector 11/02/23 Levy Barry MD [address] [place] [address] [place] [address] PCP - General Family Medicine 12/20/23 documented as of this encounter
--- OUTSIDE RECORDS SUMMARY | 2025-09-18 11:43 | XMS_ITS | Encounter Summary ---
Author Organization [facility] [address] work ([facility]) Address [address] [place] [address] Care Team Providers Care Munitions Factory Worker Name Role Phone Meme Steel MD Primary Care Provider [phone] Pcp, Pcp Primary Care Provider Guadalupe Sosa MD Primary Care Provider [phone] Sena Dominguez Unavailable [phone] Levy Barry MD Primary Care Provider [phone] Source Comments The information that you have received may contain highly confidential and/or federally protected health information. This information has been disclosed to you from records protected by [facility]. The law prohibits you from making [...] error, please contact the sender immediately.[facility] ([facility]) Encounter Details Date Type Department Care Team (Late st Contact Info) Description 01/07/2016 Historical Note [facility] GemShare System Devyn Vásquez MD [address] [place] [address] [phone] Social History Tobacco Use Types Packs/Day Years [...] LEATHA CARRILLO - [facility] [address] [facility] [address] [place] [phone] Brenda Clay MD 2315 [facility] [address] [place] [address] 04/15/2026 10:00 AM EDT Office Visit LEATHA Primary [facility] at [facility] + [facility] [address] [place] 105 [place] [phone] Sena Dominguez PA 4247 [facility] [place] [address] documented as of this encounter Visit Diagnoses Not on filedocumented in this encounter Care Teams Munitions Factory Worker Relationship Specialty Start Date End Date Meme Steel MD [address] [place] [address] 105 [place] [address] PCP - General Pediatrics 06/05/18 04/25/22 No Pcp, Pcp PCP - General 06/08/22 07/19/22 Guadalupe Mcbride MD PCP - General Family Medicine 07/20/22 11/01/23 Sena Dominguez PA [address] [place] [address] [place] [address] PCP - BRADY Physician Sailing Instructor 11/02/23 Levy Barry MD [address] [place] [address] [place] [address] PCP - General Family Medicine 12/20/23 documented as of this encounter
--- OUTSIDE RECORDS SUMMARY | 2025-09-18 11:43 | XMS_ITS | Encounter Summary ---
Author Organization [facility] work ([facility]) Address [address] [facility] [address] [place] [address] Care Team Providers Care Hardware Developer Name Role Phone Meme Steel MD Primary Care Provider [phone] Pcp, Pcp Primary Care Provider Guadalupe Sosa MD Primary Care Provider [phone] Sena Dominguez Unavailable [phone] Levy Barry MD Primary Care Provider [phone] Source Comments The information that you have received may contain highly confidential and/or federally protected health information. This information has been disclosed to you from records protected by [facility]. The law prohibits you from [...] please contact the sender immediately.[facility] ([facility]) Encounter Details Date Type Department Care Team (Late st Contact Info) Description 03/02/2005 Historical Note [facility] RotoPop System Devyn Vásquez MD [address] [place] [address] [phone] Social History Tobacco Use Types Packs/Day Years [...] CARRILLO - [facility] 2315 [facility] [address]30 [place] [phone] Brenda Clay MD 2315 [facility] [address] [place] [address] 04/15/2026 10:00 AM EDT Office Visit [facility]ATHA Primary [facility] at [facility] + [facility] 4247 [facility] 105 [place] [phone] Sena Dominguez PA 4247 [facility] [place] [address] documented as of this encounter Visit Diagnoses Not on filedocumented in this encounter Care Teams Hardware Developer Relationship Specialty Start Date End Date Meme Steel MD [address] [place] [address] 105 [place] [address] PCP - General Pediatrics 06/05/18 04/25/22 No Pcp, Pcp PCP - General 06/08/22 07/19/22 Guadalupe Mcbride MD PCP - General Family Medicine 07/20/22 11/01/23 Sena Dominguez PA [address] [place] [address] [place] [address] PCP - BRADY Physician Dry Cell Battery Assembler 11/02/23 Levy Barry MD [address] [place] [address] [place] [address] PCP - General Family Medicine 12/20/23 documented as of this encounter
--- OUTSIDE RECORDS SUMMARY | 2025-09-18 11:43 | XMS_ITS | Encounter Summary ---
Author Organization [facility] work ([facility]) Address [address] [place] [address] Care Team Providers Care Straightener Hand Name Role Phone Meme Steel MD Primary Care Provider [phone] Pcp, Pcp Primary Care Provider Guadalupe Sosa MD Primary Care Provider [phone] Sena Dominguez Unavailable [phone] Levy Barry MD Primary Care Provider [phone] Source Comments The information that you have [...] contact the sender immediately.[facility] ([facility]) Encounter Details Date Type Department Care Team (Late st Contact Info) Description 10/02/2007 Historical Note [facility] qualifyor System Devyn Vásquez MD [address] [place] [address] [phone] Social History Tobacco Use Types Packs/Day Years Used Date Smoking Tobacco: Never Assessed Comments Unknown Sex and Gender Information Value Date Recorded Sex Assigned at Not on file Legal Sex Female 1:04 AM EDT Gender Identity Not on file Sexual Orientation Not on file documented as of this encounter Plan of Treatment Upcoming Encounters Date Type Department Care Team ([facility] st Contact Info) Description 10/10/2025 10:00 AM EST Office Visit LEATHA CARRILLO - [facility] 2315 [facility] [address]30 [place] [phone] Brenda Clay MD 2315 [facility] [address] [place] [phone] 04/15/2026 10:00 AM EDT Office Visit LEATHA Primary Care at [facility] + [facility] 4247 [facility] 105 [place] [phone] Sena Dominguez PA 4247 [facility] [place] [address] documented as of this encounter Visit Diagnoses Not on filedocumented in this encounter Care Teams Straightener Hand Relationship Specialty Start Date End Date Meme Steel MD [address] [place] [address] 105 [place] [address] PCP - General Pediatrics 06/05/18 04/25/22 No Pcp, Pcp PCP - General 06/08/22 07/19/22 Guadalupe Mcbride MD PCP - General Family Medicine 07/20/22 11/01/23 Sena Dominguez PA [address] [place] [address] [place] [address] PCP - BRADY Physician Tomato Paste Maker 11/02/23 Levy Barry MD [address] [place] [address] [place] [address] PCP - General Family Medicine 12/20/23 documented as of this encounter
--- OUTSIDE RECORDS SUMMARY | 2025-09-18 11:43 | XMS_ITS | Encounter Summary ---
Author Organization [facility] work ([facility]) Address [address] [place] [address] Care Team Providers Care Globe Cleaner Name Role Phone Meme Steel MD Primary Care Provider [phone] Pcp, Pcp Primary Care Provider Guadalupe Sosa MD Primary Care Provider [phone] Sena Dominguez Unavailable [phone] Levy Barry MD Primary Care Provider [phone] Source Comments The information that you have received may contain highly confidential and/or federally protected health information. This information has been disclosed to you from records protected by [facility]. The law prohibits you from making any [...] contact the sender immediately.[facility] ([facility]) Encounter Details Date Type Department Care Team (Late st Contact Info) Description 08/06/2009 Historical Note [facility] eMeter System Devyn Vásquez MD [address] [place] [address] [phone] Social History Tobacco Use Types Packs/Day Years [...] - [facility] at [facility] 2315 [facility] [address]30 [place] [phone] Brenda Clay MD 2315 [facility] [address] [place] [phone] 04/15/2026 10:00 AM EDT Office Visit LEATHA Primary Care at [facility] + [facility] 4247 [facility] 105 [place] [phone] Sena Dominguez PA 4247 [facility] [place] [address] documented as of this encounter Visit Diagnoses Not on filedocumented in this encounter Care Teams Globe Cleaner Relationship Specialty Start Date End Date Meme Steel MD [address] [place] [address] 105 [place] [address] PCP - General Pediatrics 06/05/18 04/25/22 No Pcp, Pcp PCP - General 06/08/22 07/19/22 Guadalupe Mcbride MD PCP - General Family Medicine 07/20/22 11/01/23 Sena Dominguez PA [address] [place] [address] [place] [address] PCP - BRADY Physician Offset Plate Maker 11/02/23 Levy Barry MD [address] [place] [address] [place] [address] PCP - General Family Medicine 12/20/23 documented as of this encounter
--- OUTSIDE RECORDS SUMMARY | 2025-09-18 11:43 | XMS_ITS | Encounter Summary ---
Author Organization [facility] work ([facility]) Address [address] [place] [address] Care Team Providers Care Forensic Engineer Name Role Phone Meme Steel MD Primary Care Provider [phone] Pcp, Pcp Primary Care Provider Guadalupe Sosa MD Primary Care Provider [phone] Sena Dominguez Unavailable [phone] Levy Barry MD Primary Care Provider [phone] Source Comments The information that you have [...] immediately.[facility] ([facility]) Encounter Details Date Type Department Care Team (Late st Contact Info) Description 12/31/2015 Historical Note [facility] Finderly System Devyn Vásquez MD [address] [place] [address] [phone] Social History Tobacco Use Types Packs/Day Years [...] EST Office Visit LEATHA ACRRILLO - [facility] 2315 [facility] G30 [place] [phone] Brenda Clay MD 2315 [facility] [address] [place] [phone] 04/15/2026 10:00 AM EDT Office Visit LEATHA Primary [facility] at [facility] + [facility] 4247 [facility] 105 [place] [phone] Sena Dominguez PA 4247 [facility] [place] [address] documented as of this encounter Visit Diagnoses Not on filedocumented in this encounter Care Teams Forensic Engineer Relationship Specialty Start Date End Date Meme Steel MD [address] [place] [address] 105 [place] [address] PCP - General Pediatrics 06/05/18 04/25/22 No Pcp, Pcp PCP - General 06/08/22 07/19/22 Guadalupe Mcbride MD PCP - General Family Medicine 07/20/22 11/01/23 Sena Dominguez PA [address] [place] [address] [place] [address] PCP - BRADY Physician Corporate Director 11/02/23 Levy Barry MD [address] [place] [address] [place] [address] PCP - General Family Medicine 12/20/23 documented as of this encounter
--- OUTSIDE RECORDS SUMMARY | 2025-09-18 11:43 | XMS_ITS | Encounter Summary ---
Author Organization [facility] work ([facility]) Address [address] [place] [address] Care Team Providers Care Tube Builder Name Role Phone Meme Steel MD Primary Care Provider [phone] Pcp, Pcp Primary Care Provider Guadalupe Sosa MD Primary Care Provider [phone] Sena Dominguez Unavailable [phone] Levy Barry MD Primary Care Provider [phone] Source Comments The information that you have [...] immediately.[facility] ([facility]) Encounter Details Date Type Department Care Team (Late st Contact Info) Description 03/03/2005 Historical Note [facility] ActivIdentity System Devyn Vásquez MD [address] [place] [address] [phone] Social History Tobacco Use Types Packs/Day Years [...] LEATHA CARRILLO - [facility] 2315 [facility] [address]30 [place] [phone] Brenda Clay MD 2315 [facility] [address] [place] [phone] 04/15/2026 10:00 AM EDT Office Visit [facility]HA [facility] at [facility] + [facility] 4247 [facility] 105 [place] [phone] Sena Dominguez PA 4247 [facility] [place] [address] documented as of this encounter Visit Diagnoses Not on filedocumented in this encounter Care Teams Tube Builder Relationship Specialty Start Date End Date Meme Steel MD [address] [place] [address] 105 [place] [address] PCP - General Pediatrics 06/05/18 04/25/22 No Pcp, Pcp PCP - General 06/08/22 07/19/22 Guadalupe Mcbride MD PCP - General Family Medicine 07/20/22 11/01/23 Sena Dominguez PA [address] [place] [address] [place] [address] PCP - BRADY Physician Dragline Mechanic 11/02/23 Levy Barry MD [address] [place] [address] [place] [address] PCP - General Family Medicine 12/20/23 documented as of this encounter
--- OUTSIDE RECORDS SUMMARY | 2025-09-18 11:43 | XMS_ITS | Encounter Summary ---
Author Organization [facility] work ([facility]) Address [address] [place] [address] Care Team Providers Care Geodesy Teacher Name Role Phone Meme Steel MD Primary Care Provider [phone] Pcp, Pcp Primary Care Provider Guadalupe Sosa MD Primary Care Provider [phone] Sena Dominguez Unavailable [phone] Levy Barry MD Primary Care Provider [phone] Source Comments The information that you have [...] please contact the sender immediately.[facility] ([facility]) Encounter Details Date Type Department Care Team (Late st Contact Info) Description 04/09/2009 Historical Note [facility] Player X System Devyn Vásquez MD [address] [place] [address] [phone] Social History Tobacco Use Types Packs/Day Years [...] LEATHA CARRILLO - [facility] 2315 [facility] G30 [place] [phone] Brenda Clay MD 2315 [facility] [address] [place] [phone] 04/15/2026 10:00 AM EDT Office Visit LEATHA Primary Care at [facility] + [facility] 4247 [facility] 105 [place] [phone] Sena Dominguez PA 4247 [facility] [place] [address] documented as of this encounter Visit Diagnoses Not on filedocumented in this encounter Care Teams Geodesy Teacher Relationship Specialty Start Date End Date Meme Steel MD [address] [place] [address] 105 [place] [address] PCP - General Pediatrics 06/05/18 04/25/22 No Pcp, Pcp PCP - General 06/08/22 07/19/22 Guadalupe Mcbride MD PCP - General Family Medicine 07/20/22 11/01/23 Sena Dominguez PA [address] [place] [address] [place] [address] PCP - BRADY Physician Invoice Checker 11/02/23 Levy Barry MD [address] [place] [address] [place] [address] PCP - General Family Medicine 12/20/23 documented as of this encounter
--- OUTSIDE RECORDS SUMMARY | 2025-09-18 11:43 | XMS_ITS | Encounter Summary ---
Author Organization [facility] work ([facility]) Address [address] [place] [address] Care Team Providers Care Finishing Room Operator Name Role Phone Meme Steel MD Primary Care Provider [phone] Pcp, Pcp Primary Care Provider Guadalupe Sosa MD Primary Care Provider [phone] Sena Dominguez Unavailable [phone] Levy Barry MD Primary Care Provider [phone] Source Comments The information that you have [...] please contact the sender immediately.[facility] ([facility]) Encounter Details Date Type Department Care Team (Late st Contact Info) Description 01/04/2008 Historical Note [facility] [email or web address] System Devyn Vásquez MD [address] [place] [address] [phone] Social History Tobacco Use Types Packs/Day Years [...] - [facility] at [facility] 2315 [facility] G30 [place] [phone] Brenda Clay MD 2315 [facility] [address] [place] [phone] 04/15/2026 10:00 AM EDT Office Visit LEATHA Primary Care at [facility] + [facility] 4247 [facility] 105 [place] [phone] Sena Dominguez PA 4247 [facility] [place] [address] documented as of this encounter Visit Diagnoses Not on filedocumented in this encounter Care Teams Finishing Room Operator Relationship Specialty Start Date End Date Meme Steel MD [address] [place] [address] 105 [place] [address] PCP - General Pediatrics 06/05/18 04/25/22 No Pcp, Pcp PCP - General 06/08/22 07/19/22 Guadalupe Mcbride MD PCP - General Family Medicine 07/20/22 11/01/23 Sena Dominguez PA [address] [place] [address] [place] [address] PCP - BRADY Physician Shower Screen Installer 11/02/23 Levy Barry MD [address] [place] [address] [place] [address] PCP - General Family Medicine 12/20/23 documented as of this encounter
--- OUTSIDE RECORDS SUMMARY | 2025-09-18 11:43 | XMS_ITS | Encounter Summary ---
Author Organization [facility] work ([facility]) Address [address] [place] [address] Care Team Providers Care Php Magento Developer Name Role Phone Meme Steel MD Primary Care Provider [phone] Pcp, Pcp Primary Care Provider Guadalupe Sosa MD Primary Care Provider [phone] Sena Dominguez Unavailable [phone] Levy Barry MD Primary Care Provider [phone] Source Comments The information that you have [...] error, please contact the sender immediately.[facility] ([facility]) Encounter Details Date Type Department Care Team (Late st Contact Info) Description 03/02/2005 Historical Note [facility] Gentronix System Devyn Vásquez MD [address] [place] [address] [phone] Social History Tobacco Use Types Packs/Day Years [...] CARRILLO - [facility] 2315 [facility] G30 [place] [phone] Brenda Clay MD 2315 [facility] [address] [place] [phone] 04/15/2026 10:00 AM EDT Office Visit LEATHA Primary [facility] at [facility] + [facility] 4247 [facility] 105 [place] [phone] Sena Dominguez PA 4247 [facility] [place] [address] documented as of this encounter Visit Diagnoses Not on filedocumented in this encounter Care Teams Php Magento Developer Relationship Specialty Start Date End Date Meme Steel MD [address] [place] [address] 105 [place] [address] PCP - General Pediatrics 06/05/18 04/25/22 No Pcp, Pcp PCP - General 06/08/22 07/19/22 Guadalupe Mcbride MD PCP - General Family Medicine 07/20/22 11/01/23 Sena Dominguez PA [address] [place] [address] [place] [address] PCP - BRADY Physician Abstract Searcher 11/02/23 Levy Barry MD [address] [place] [address] [place] [address] PCP - General Family Medicine 12/20/23 documented as of this encounter
--- OUTSIDE RECORDS SUMMARY | 2025-09-18 11:43 | XMS_ITS | Encounter Summary ---
Author Organization [facility] work ([facility]) Address [address] [facility] [address] [place] [address] Care Team Providers Care Glass Cutter Helper Name Role Phone Meme Steel MD Primary Care Provider [phone] Pcp, Pcp Primary Care Provider Guadalupe Sosa MD Primary Care Provider [phone] Sena Dominguez Unavailable [phone] Levy Barry MD Primary Care Provider [phone] Source Comments The information that you have [...] contact the sender immediately.[facility] ([facility]) Encounter Details Date Type Department Care Team (Late st Contact Info) Description 01/01/2008 Historical Note [facility] Xooker System Devyn Vásquez MD [address] [place] [address] [phone] Social History Tobacco Use Types Packs/Day Years Used Date Smoking Tobacco: Never Assessed Comments Unknown Sex and Gender Information Value Date Recorded Sex Assigned at Not on file Legal Sex Female 1:04 AM EDT Gender Identity Not on file Sexual Orientation Not on file documented as of this encounter Plan of Treatment Upcoming Encounters Date Type Department Care Team ([facility] st Contact Info) Description 10/10/2025 10:00 AM EST Office Visit LEATHA CARRILLO - [facility] 2315 [facility] [address]30 [place] [phone] Brenda Clay MD 2315 [facility] [address] [place] [phone] 04/15/2026 10:00 AM EDT Office Visit LEATHA [facility] at [facility] + [facility] 4247 [facility] 105 [place] [phone] Sena Dominguez PA 4247 [facility] [place] [address] documented as of this encounter Visit Diagnoses Not on filedocumented in this encounter Care Teams Glass Cutter Helper Relationship Specialty Start Date End Date Meme Steel MD [address] [place] [address] 105 [place] [address] PCP - General Pediatrics 06/05/18 04/25/22 No Pcp, Pcp PCP - General 06/08/22 07/19/22 Guadalupe Mcbride MD PCP - General Family Medicine 07/20/22 11/01/23 Sena Dominguez PA [address] [place] [address] [place] [address] PCP - BRADY Physician Charge Account Identification Clerk 11/02/23 Levy Barry MD [address] [place] [address] [place] [address] PCP - General Family Medicine 12/20/23 documented as of this encounter
--- OUTSIDE RECORDS SUMMARY | 2025-09-18 11:43 | XMS_ITS | Encounter Summary ---
Author Organization [facility] work ([facility]) Address [address] [place] [address] Care Team Providers Care Surgical Product Sales Consultant Name Role Phone Meme Steel MD Primary Care Provider [phone] Pcp, Pcp Primary Care Provider Guadalupe Sosa MD Primary Care Provider [phone] Sena Dominguez Unavailable [phone] Levy Barry MD Primary Care Provider [phone] Source Comments The information that you have received may contain highly confidential and/or federally protected health information. This information has been disclosed to you from records protected by [facility]. The law prohibits you from making [...] contact the sender immediately.[facility] ([facility]) Encounter Details Date Type Department Care Team (Late st Contact Info) Description 03/03/2005 Historical Note [facility] [employer] Devyn Vásquez MD [address] [place] [address] [phone] Social History Tobacco Use Types Packs/Day Years [...] CARRILLO - [facility] [address] [facility] [address] [place] [phone] Brenda Clay MD 2315 [facility] [address] [place] [phone] 04/15/2026 10:00 AM EDT Office Visit [facility]HA [facility] + [facility] 4247 [facility] [address] [place] [phone] Sena Dominguez PA 4247 [facility] [place] [address] documented as of this encounter Visit Diagnoses Not on filedocumented in this encounter Care Teams Surgical Product Sales Consultant Relationship Specialty Start Date End Date Meme Steel MD [address] [place] [address] 105 [place] [address] PCP - General Pediatrics 06/05/18 04/25/22 No Pcp, Pcp PCP - General 06/08/22 07/19/22 Guadalupe Mcbride MD PCP - General Family Medicine 07/20/22 11/01/23 Sena Dominguez PA [address] [place] [address] [place] [address] PCP - BRADY Physician Plant Operator Helper 11/02/23 Levy Barry MD [address] [place] [address] [place] [address] PCP - General Family Medicine 12/20/23 documented as of this encounter
--- OUTSIDE RECORDS SUMMARY | 2025-09-18 11:44 | XMS_ITS | Encounter Summary ---
Author Organization [facility] work ([facility]) Address [address] [place] [address] Care Team Providers Care Nitric Acid Concentrator Operator Name Role Phone Meme Steel MD Primary Care Provider [phone] Pcp, Pcp Primary Care Provider Guadalupe Sosa MD Primary Care Provider [phone] Sena Dominguez Unavailable [phone] Levy Barry MD Primary Care Provider [phone] Source Comments The information that you have [...] contact the sender immediately.[facility] ([facility]) Encounter Details Date Type Department Care Team (Late st Contact Info) Description 11/18/2014 Historical Note [facility] [employer] Devyn Vásquez MD [address] [place] [address] [phone] Social History Tobacco Use Types Packs/Day Years [...] LEATHA CARRILLO - [facility] [employer] 2315 [facility] G30 [place] [phone] Brenda Clay MD 2315 [facility] [address] [place] [phone] 04/15/2026 10:00 AM EDT Office Visit LE[facility]HA [facility] at [facility] + [facility] 4247 [facility] 105 [place] [phone] Sena Dominguez PA 4[address] [facility] [place] [address] documented as of this encounter Visit Diagnoses Not on filedocumented in this encounter Care Teams Nitric Acid Concentrator Operator Relationship Specialty Start Date End Date Meme Steel MD [address] [place] [address] 105 [place] [address] PCP - General Pediatrics 06/05/18 04/25/22 No Pcp, Pcp PCP - General 06/08/22 07/19/22 Guadalupe Mcbride MD PCP - General Family Medicine 07/20/22 11/01/23 Sena Dominguez PA [address] [place] [address] [place] [address] PCP - BRADY Physician Multifocal Lens Inspector 11/02/23 Levy Barry MD [address] [place] [address] [place] [address] PCP - General Family Medicine 12/20/23 documented as of this encounter
--- OUTSIDE RECORDS SUMMARY | 2025-09-18 11:44 | XMS_ITS | Encounter Summary ---
Author Organization [facility] work ([facility]) Address [address] [place] [address] Care Team Providers Care Filtration Operator Name Role Phone Meme Steel MD Primary Care Provider [phone] Pcp, Pcp Primary Care Provider Guadalupe Sosa MD Primary Care Provider [phone] Sena Dominguez Unavailable [phone] Levy Barry MD Primary Care Provider [phone] Source Comments The information that you have received may contain highly confidential and/or federally protected health information. This information has been disclosed to you from records protected by [facility]. The law prohibits you from making [...] error, please contact the sender immediately.[facility] ([facility]) Encounter Details Date Type Department Care Team (Late st Contact Info) Description 08/12/2008 Historical Note [facility] [employer] [facility] Devyn Vásquez MD [address] [place] [address] [phone] Social History Tobacco Use Types Packs/Day Years [...] LEATHA CARRILLO - [facility] 2315 [facility] [address]30 [place] [phone] Brenda Clay MD 2315 [facility] [employer] [facility] [address] [place] [phone] 04/15/2026 10:00 AM EDT Office Visit LEATHA [facility] at [facility] + [facility] 4247 [facility] 105 [place] [phone] Sena Dominguez PA 4247 [facility] [place] [facility] [place] [address] documented as of this encounter Visit Diagnoses Not on filedocumented in this encounter Care Teams Filtration Operator Relationship Specialty Start Date End Date Meme Steel MD [address] [place] [address] 105 [place] [address] PCP - General Pediatrics 06/05/18 04/25/22 No Pcp, Pcp PCP - General 06/08/22 07/19/22 Guadalupe Mcbride MD PCP - General Family Medicine 07/20/22 11/01/23 Sena Dominguez PA [address] [place] [address] [place] [address] PCP - BRADY Physician Assistant Guest Services Manager 11/02/23 Levy Barry MD [address] [place] [address] [place] [address] PCP - General Family Medicine 12/20/23 documented as of this encounter
--- OUTSIDE RECORDS SUMMARY | 2025-09-18 11:44 | XMS_ITS | Encounter Summary ---
Author Organization [facility] work ([facility]) Address [address] [place] [address] Care Team Providers Care Plug Wirer Name Role Phone Meme Steel MD Primary Care Provider [phone] Pcp, Pcp Primary Care Provider Guadalupe Sosa MD Primary Care Provider [phone] Sena Dominguez Unavailable [phone] Levy Barry MD Primary Care Provider [phone] Source Comments The information that you have [...] contact the sender immediately.[facility] ([facility]) Encounter Details Date Type Department Care Team (Late st Contact Info) Description 06/16/2014 Historical Note [facility] [employer] System Devyn Vásquez MD [address] [place] [address] [phone] Social History Tobacco Use Types Packs/Day Years [...] LEATHA CARRILLO - [facility] 2315 [facility] G30 [place] [phone] Brenda Clay MD 2315 [facility] [address] [place] [phone] 04/15/2026 10:00 AM EDT Office Visit LEATHA [facility] at [facility] + [facility] 4247 [facility] 105 [place] [phone] Sena Dominguez PA 4247 [facility] [place] [address] documented as of this encounter Visit Diagnoses Not on filedocumented in this encounter Care Teams Plug Wirer Relationship Specialty Start Date End Date Meme Steel MD [address] [place] [address] 105 [place] [address] PCP - General Pediatrics 06/05/18 04/25/22 No Pcp, Pcp PCP - General 06/08/22 07/19/22 Guadalupe Mcbride MD PCP - General Family Medicine 07/20/22 11/01/23 Sena Dominguez PA [address] [place] [address] [place] [address] PCP - BRADY Physician Filler Mixer 11/02/23 Levy Barry MD [address] [place] [address] [place] [address] PCP - General Family Medicine 12/20/23 documented as of this encounter
--- OUTSIDE RECORDS SUMMARY | 2025-09-18 11:44 | XMS_ITS | Encounter Summary ---
Author Organization [facility] work ([facility]) Address [address] [place] [address] Care Team Providers Care Steamship Agent Name Role Phone Meme Steel MD Primary Care Provider [phone] Pcp, Pcp Primary Care Provider Guadalupe Sosa MD Primary Care Provider Sena Dominguez Unavailable [phone] Levy Barry MD Primary Care Provider [phone] Source Comments The information that you have received may contain highly confidential and/or federally protected health information. This information has been disclosed to you from records protected by [facility]. The law prohibits you from making [...] please contact the sender immediately.[facility] ([facility]) Encounter Details Date Type Department Care Team (Late st Contact Info) Description 08/21/2014 Historical Note [facility] [employer] [facility] Devyn Vásquez MD [address] [place] [address] [phone] Social History Tobacco Use Types Packs/Day Years [...] LEATHA CARRILLO - [facility] 2315 [facility] G30 [place] [phone] Brenda Clay MD 2315 [facility] [address] [place] [phone] 04/15/2026 10:00 AM EDT Office Visit LEATHA [facility] at [facility] + [facility] 4247 [facility] 105 [place] [phone] Sena Dominguez PA 4247 [facility] [place] [address] documented as of this encounter Visit Diagnoses Not on filedocumented in this encounter Care Teams Steamship Agent Relationship Specialty Start Date End Date Meme Steel MD [address] [place] [address] 105 [place] [address] PCP - General Pediatrics 06/05/18 04/25/22 No Pcp, Pcp PCP - General 06/08/22 07/19/22 Guadalupe Mcbride MD PCP - General Family Medicine 07/20/22 11/01/23 Sena Dominguez PA [address] [place] [address] [place] [address] PCP - BRADY Physician Airport Operations Officer 11/02/23 Levy Barry MD [address] [place] [address] [place] [address] PCP - General Family Medicine 12/20/23 documented as of this encounter
--- OUTSIDE RECORDS SUMMARY | 2025-09-18 11:44 | XMS_ITS | Encounter Summary ---
Author Organization [facility] work ([facility]) Address [address] [place] [address] Care Team Providers Care Arts Education Teacher Name Role Phone Meme Steel MD Primary Care Provider [phone] Pcp, Pcp Primary Care Provider Guadalupe Sosa MD Primary Care Provider [phone] Sena Dominguez Unavailable [phone] Levy Barry MD Primary Care Provider [phone] Source Comments The information that you have [...] please contact the sender immediately.[facility] ([facility]) Encounter Details Date Type Department Care Team (Late st Contact Info) Description 02/18/2014 Historical Note [facility] [employer] [facility] Devyn Vásquez MD [address] [place] [address] [phone] Social History Tobacco Use Types Packs/Day Years [...] CARRILLO - [facility] 2315 [facility] G30 [place] [phone] Brenda Clay MD 2315 [facility] [address] [place] [phone] 04/15/2026 10:00 AM EDT Office Visit [facility]HA [facility] + [facility] 4247 [facility] 105 [place] [phone] Sena Dominguez PA 4247 [facility] [place] [address] documented as of this encounter Visit Diagnoses Not on filedocumented in this encounter Care Teams Arts Education Teacher Relationship Specialty Start Date End Date Mmee Steel MD [address] [place] [address] 105 [place] [address] PCP - General Pediatrics 06/05/18 04/25/22 No Pcp, Pcp PCP - General 06/08/22 07/19/22 Guadalupe Mcbride MD PCP - General Family Medicine 07/20/22 11/01/23 Sena Dominguez PA [address] [place] [address] [place] [address] PCP - BRADY Physician Research Assoc 11/02/23 Levy Barry MD [address] [place] [address] [place] [address] PCP - General Family Medicine 12/20/23 documented as of this encounter
--- OUTSIDE RECORDS SUMMARY | 2025-09-18 11:44 | XMS_ITS | Encounter Summary ---
Author Organization [facility] work ([facility]) Address [address] [place] [facility] [address] [place] [address] Care Team Providers Care Engineer First Assistant Name Role Phone Meme Steel MD Primary Care Provider [phone] Pcp, Pcp Primary Care Provider Guadalupe Sosa MD Primary Care Provider [phone] Sena Dominguez Unavailable [phone] Levy Barry MD Primary Care Provider [phone] Source Comments The information that you have [...] please contact the sender immediately.[facility] ([facility]) Encounter Details Date Type Department Care Team (Late st Contact Info) Description 08/21/2014 Historical Note [facility] [employer] [facility] Devyn Vásquez MD [address] [place] [address] [phone] Social History Tobacco Use Types Packs/Day Years [...] - [facility] [address] [facility] [address] [place] [phone] Brenda Clay MD 2315 [facility] [address] [place] [phone] 04/15/2026 10:00 AM EDT Office Visit LEATHA [facility] at [facility] + [facility] 4247 [facility] 105 [place] [phone] Sena Dominguez PA 4247 [facility] [place] [address] documented as of this encounter Visit Diagnoses Not on filedocumented in this encounter Care Teams Engineer First Assistant Relationship Specialty Start Date End Date Meme Steel MD [address] [place] [address] 105 [place] [address] PCP - General Pediatrics 06/05/18 04/25/22 No Pcp, Pcp PCP - General 06/08/22 07/19/22 Guadalupe Mcbride MD PCP - General Family Medicine 07/20/22 11/01/23 Sena Dominguez PA [address] [place] [address] [place] [address] PCP - BRADY Physician Mathematical Scientist 11/02/23 Levy Barry MD [address] [place] [address] [place] [address] PCP - General Family Medicine 12/20/23 documented as of this encounter
--- OUTSIDE RECORDS SUMMARY | 2025-09-18 11:44 | XMS_ITS | Encounter Summary ---
Author Organization [facility] work ([facility]) Address [address] [place] [address] Care Team Providers Care Commercial Artist Name Role Phone Meme Steel MD Primary Care Provider [phone] Pcp, Pcp Primary Care Provider Guadalupe Sosa MD Primary Care Provider [phone] Sena Dominguez Unavailable [phone] Levy Barry MD Primary Care Provider [phone] Source Comments The information that you have received may contain highly confidential and/or federally protected health information. This information has been disclosed to you from records protected by [facility]. The law prohibits you from [...] please contact the sender immediately.[facility] ([facility]) Encounter Details Date Type Department Care Team (Late st Contact Info) Description 01/04/2008 Historical Note [facility] [employer] [facility] Devyn Vásquez MD [address] [place] [address] [phone] Social History Tobacco Use Types Packs/Day Years [...] Visit LEATHA CARRILLO - [facility] 2315 [facility] G30 [place] [phone] Brenda Clay MD 2315 [facility] [address] [place] [phone] 04/15/2026 10:00 AM EDT Office Visit LEATHA [facility] 4247 [facility] 105 [place] [phone] Sena Dominguez PA 4247 [facility] [place] [address] documented as of this encounter Visit Diagnoses Not on filedocumented in this encounter Care Teams Commercial Artist Relationship Specialty Start Date End Date Meme Steel MD [address] [place] [address] 105 [place] [address] PCP - General Pediatrics 06/05/18 04/25/22 No Pcp, Pcp PCP - General 06/08/22 07/19/22 Guadalupe Mcbride MD PCP - General Family Medicine 07/20/22 11/01/23 Sena Dominguez PA [address] [place] [address] [place] [address] PCP - BRADY Physician Roll Handler 11/02/23 Levy Barry MD [address] [place] [address] [place] [address] PCP - General Family Medicine 12/20/23 documented as of this encounter
--- OUTSIDE RECORDS SUMMARY | 2025-09-18 11:44 | XMS_ITS | Encounter Summary ---
Author Organization [facility] work ([facility]) Address [address] [place] [address] Care Team Providers Care Driver Retraining Instructor Name Role Phone Meme Steel MD Primary Care Provider No Pcp, Pcp Primary Care Provider Guadalupe Sosa MD Primary Care Provider Sena Dominguez Unavailable [phone] Levy Barry MD Primary Care Provider [phone] Source Comments The information that you have [...] sender immediately.[facility] ([facility]) Encounter Details Date Type Department Care Team (Late st Contact Info) Description 06/06/2008 Historical Note [facility] [employer] System Devyn Vásquez MD [address] [place] [address] [phone] Social History Tobacco Use Types Packs/Day Years [...] CARRILLO - [facility] 2315 [facility] G30 [place] [phone] Brenda Clay MD 2315 [facility] [address] [place] [phone] 04/15/2026 10:00 AM EDT Office Visit LEATHA [facility] at [facility] + [facility] 4247 [facility] 105 [place] [phone] Sena Dominguez PA 4247 [facility] [place] [address] documented as of this encounter Visit Diagnoses Not on filedocumented in this encounter Care Teams Driver Retraining Instructor Relationship Specialty Start Date End Date Meme Steel MD [address] [place] [address] 105 [place] [address] PCP - General Pediatrics 06/05/18 04/25/22 No Pcp, Pcp PCP - General 06/08/22 07/19/22 Guadalupe Mcbride MD PCP - General Family Medicine 07/20/22 11/01/23 Sena Dominguez PA [address] [place] [address] [place] [address] PCP - BRADY Physician Ui Ux Engineer 11/02/23 Levy Barry MD [address] [place] [address] [place] [address] PCP - General Family Medicine 12/20/23 documented as of this encounter
--- OUTSIDE RECORDS SUMMARY | 2025-09-18 11:44 | XMS_ITS | Encounter Summary ---
Author Organization [facility] work ([facility]) Address [address] [place] [address] Care Team Providers Care Coat Tailor Name Role Phone Meme Steel MD Primary Care Provider [phone] Pcp, Pcp Primary Care Provider Guadalupe Sosa MD Primary Care Provider [phone] Sena Dominguez Unavailable Levy Barry MD Primary Care Provider [phone] Source Comments The information that you have [...] please contact the sender immediately.[facility] ([facility]) Encounter Details Date Type Department Care Team (Late st Contact Info) Description 05/20/2014 Historical Note [facility] [employer] System Devyn Vásquez MD [address] [place] [address] [phone] Social History Tobacco Use Types Packs/Day Years [...] CARRILLO - [facility] 2315 [facility] G30 [place] [phone] Brenda Clay MD 2315 [facility] [address] [place] [phone] 04/15/2026 10:00 AM EDT Office Visit LEATHA [facility] at [facility] + [facility] 4247 [facility] 105 [place] [phone] Sena Dominguez PA 4247 [facility] [place] [address] documented as of this encounter Visit Diagnoses Not on filedocumented in this encounter Care Teams Coat Tailor Relationship Specialty Start Date End Date Meme Steel MD [address] [place] [address] 105 [place] [address] PCP - General Pediatrics 06/05/18 04/25/22 No Pcp, Pcp PCP - General 06/08/22 07/19/22 Guadalupe Mcbride MD PCP - General Family Medicine 07/20/22 11/01/23 Sena Dominguez PA [address] [place] [address] [place] [address] PCP - BRADY Physician Seismographer 11/02/23 Levy Barry MD [address] [place] [address] [place] [address] PCP - General Family Medicine 12/20/23 documented as of this encounter
--- OUTSIDE RECORDS SUMMARY | 2025-09-18 11:44 | XMS_ITS | Encounter Summary ---
Author Organization [facility] work ([facility]) Address [address] [place] [address] Care Team Providers Care Field Artillery Fire Control Man Name Role Phone Meme Steel MD Primary Care Provider No Pcp, Pcp Primary Care Provider Guadalupe Sosa MD Primary Care Provider [phone] Sena Dominguez Unavailable [phone] Levy Barry MD Primary Care Provider [phone] Source Comments The information that you have [...] the sender immediately.[facility] ([facility]) Encounter Details Date Type Department Care Team (Late st Contact Info) Description 11/07/2014 Historical Note [facility] MetaPack System Devyn Vásquez MD [address] [place] [address] [phone] Social History Tobacco Use Types Packs/Day Years Used Date Smoking Tobacco: Never Assessed Comments Unknown Sex and Gender Information Value Date Recorded Sex Assigned at Not on file Legal Sex Female 1:04 AM EDT Gender Identity Not on file Sexual Orientation Not on file documented as of this encounter Plan of Treatment Upcoming Encounters Date Type Department Care Team ([facility] st Contact Info) Description 10/10/2025 10:00 AM EST Office Visit LEATHA CARRILLO - [facility] [address] [facility] [address] [place] [phone] Brenda Clay MD 2315 [facility] [address] [place] [phone] 04/15/2026 10:00 AM EDT Office Visit [facility] [place] + [facility] [address] [facility] [place] [address] [place] [phone] Sena Dominguez PA 4[address] [facility] [place] [address] documented as of this encounter Visit Diagnoses Not on filedocumented in this encounter Care Teams Field Artillery Fire Control Man Relationship Specialty Start Date End Date Meme Steel MD [address] [place] [address] 105 [place] [address] PCP - General Pediatrics 06/05/18 04/25/22 No Pcp, Pcp PCP - General 06/08/22 07/19/22 Guadalupe Mcbride MD PCP - General Family Medicine 07/20/22 11/01/23 Sena Dominguez PA [address] [place] [address] [place] [address] PCP - BRADY Physician Crtts 11/02/23 Levy Barry MD [address] [place] [address] [place] [address] PCP - General Family Medicine 12/20/23 documented as of this encounter
--- OUTSIDE RECORDS SUMMARY | 2025-09-18 11:44 | XMS_ITS | Encounter Summary ---
Author Organization [facility] work ([facility]) Address [address] [place] [address] Care Team Providers Care Healthcare Network Consultant Name Role Phone Meme Steel MD Primary Care Provider [phone] Pcp, Pcp Primary Care Provider Guadalupe Sosa MD Primary Care Provider [phone] Sena Dominguez Unavailable [phone] Levy Barry MD Primary Care Provider [phone] Source Comments The information that you have [...] please contact the sender immediately.[facility] ([facility]) Encounter Details Date Type Department Care Team (Late st Contact Info) Description 03/24/2008 Historical Note [facility] [employer] [facility] Devyn Vásquez MD [address] [place] [address] [phone] Social History Tobacco Use Types Packs/Day Years [...] LEATHA CARRILLO - [facility] 2315 [facility] [address] [place] [phone] Brenda Clay MD 2315 [facility] [address] [place] [phone] 04/15/2026 10:00 AM EDT Office Visit LE[facility]HA [facility] at [facility] + [facility] 4[address] [facility] 105 [place] [phone] Sena Dominguez PA 4247 [facility] [place] [address] documented as of this encounter Visit Diagnoses Not on filedocumented in this encounter Care Teams Healthcare Network Consultant Relationship Specialty Start Date End Date Meme Steel MD [address] [place] [address] 105 [place] [address] PCP - General Pediatrics 06/05/18 04/25/22 No Pcp, Pcp PCP - General 06/08/22 07/19/22 Guadaluep Mcbride MD PCP - General Family Medicine 07/20/22 11/01/23 Sena Dominguez PA [address] [place] [address] [place] [address] PCP - BRADY Physician Automation Machine Builder 11/02/23 Levy Barry MD [address] [place] [address] [place] [address] PCP - General Family Medicine 12/20/23 documented as of this encounter
--- OUTSIDE RECORDS SUMMARY | 2025-09-18 11:44 | XMS_ITS | Encounter Summary ---
Author Organization [facility] work ([facility]) Address [address] [place] [address] Care Team Providers Care Paper Sealer Name Role Phone Meme Steel MD Primary Care Provider [phone] Pcp, Pcp Primary Care Provider Guadalupe Sosa MD Primary Care Provider [phone] Sena Dominguez Unavailable [phone] Levy Barry MD Primary Care Provider [phone] Source Comments The information that you have [...] please contact the sender immediately.[facility] ([facility]) Encounter Details Date Type Department Care Team (Late st Contact Info) Description 06/14/2008 Historical Note [facility] StudentFunder System Devyn Vásquez MD [address] [place] [address] [phone] Social History Tobacco Use Types Packs/Day Years [...] Visit LEATHA CARRILLO - [facility] [address] [facility] [address] [place] [phone] Brenda Clay MD 2315 [facility] [address] [place] [phone] 04/15/2026 10:00 AM EDT Office Visit [facility]HA [facility] at [facility] + [facility] 4247 [facility] [address] [place] [phone] Sena Dominguez PA 4247 [facility] [place] [address] documented as of this encounter Visit Diagnoses Not on filedocumented in this encounter Care Teams Paper Sealer Relationship Specialty Start Date End Date Meme Steel MD [address] [place] [address] 105 [place] [address] PCP - General Pediatrics 06/05/18 04/25/22 No Pcp, Pcp PCP - General 06/08/22 07/19/22 Guadalupe Mcbride MD PCP - General Family Medicine 07/20/22 11/01/23 Sena Dominguez PA [address] [place] [address] [place] [address] PCP - BRADY Physician Capacity Analyst 11/02/23 Levy Barry MD [address] [place] [address] [place] [address] PCP - General Family Medicine 12/20/23 documented as of this encounter
--- OUTSIDE RECORDS SUMMARY | 2025-09-18 11:44 | XMS_ITS | Encounter Summary ---
Author Organization [facility] work ([facility]) Address [address] [place] [address] Care Team Providers Care Waste Elimination Name Role Phone Meme Steel MD Primary Care Provider [phone] Pcp, Pcp Primary Care Provider Guadalupe Sosa MD Primary Care Provider [phone] Sena Dominguez Unavailable [phone] Levy Barry MD Primary Care Provider [phone] Source Comments The information that you have [...] contact the sender immediately.[facility] ([facility]) Encounter Details Date Type Department Care Team (Late st Contact Info) Description 11/25/2014 Historical Note [facility] RentPost System Devyn Vásquez MD [address] [place] [address] [phone] Social History Tobacco Use Types Packs/Day Years [...] CARRILLO - [facility] 23[address] [facility] [address] [place] [phone] Brenda Clay MD 2315 [facility] [address] [place] [phone] 04/15/2026 10:00 AM EDT Office Visit LE[facility]HA [facility] at [facility] + [facility] 4247 [facility] 105 [place] [phone] Sena Dominguez PA 4247 [facility] [place] [address] documented as of this encounter Visit Diagnoses Not on filedocumented in this encounter Care Teams Waste Elimination Relationship Specialty Start Date End Date Meme Steel MD [address] [place] [address] 105 [place] [address] PCP - General Pediatrics 06/05/18 04/25/22 No Pcp, Pcp PCP - General 06/08/22 07/19/22 Guadalupe Mcbride MD PCP - General Family Medicine 07/20/22 11/01/23 Sena Dominguez PA [address] [place] [address] [place] [address] PCP - BRADY Physician Dough Machine Operator 11/02/23 Levy Barry MD [address] [place] [address] [place] [address] PCP - General Family Medicine 12/20/23 documented as of this encounter
--- OUTSIDE RECORDS SUMMARY | 2025-09-18 11:44 | XMS_ITS | Encounter Summary ---
Author Organization [facility] work ([facility]) Address [address] [facility] [address] [address] [facility] [address] [place] [address] Care Team Providers Care Pharmaceutical Officer Name Role Phone Meme Steel MD Primary Care Provider [phone] Pcp, Pcp Primary Care Provider Guadalupe Sosa MD Primary Care Provider [phone] Sena Dominguez Unavailable [phone] Levy Barry MD Primary Care Provider [phone] Source Comments The information that you have received may contain highly confidential and/or federally protected health information. This information has been disclosed to you from records protected by [facility]. The law prohibits you from making [...] contact the sender immediately.[facility] ([facility]) Encounter Details Date Type Department Care Team (Late st Contact Info) Description 11/26/2007 Historical Note [facility] Prescreen System Devyn Vásquez MD [address] [place] [address] [phone] Social History Tobacco Use Types Packs/Day Years [...] Visit LEATHA [facility]LL[facility] - [facility] 2315 [facility] [address] [place] [phone] Brenda Clay MD 2315 [facility] [address] [place] [phone] 04/15/2026 10:00 AM EDT Office Visit [facility]HA [facility] at [facility] + [facility] [address] [facility] 105 [place] [phone] Sena Dominguez PA 4247 [facility] [place] [address] documented as of this encounter Visit Diagnoses Not on filedocumented in this encounter Care Teams Pharmaceutical Officer Relationship Specialty Start Date End Date Meme Steel MD [address] [place] [address] 105 [place] [address] PCP - General Pediatrics 06/05/18 04/25/22 No Pcp, Pcp PCP - General 06/08/22 07/19/22 Guadalupe Mcbride MD PCP - General Family Medicine 07/20/22 11/01/23 Sena Dominguez PA [address] [place] [address] [place] [address] PCP - BRADY Physician Cork Insulation Setter 11/02/23 Levy Barry MD [address] [place] [address] [place] [address] PCP - General Family Medicine 12/20/23 documented as of this encounter
--- OUTSIDE RECORDS SUMMARY | 2025-09-18 11:44 | XMS_ITS | Encounter Summary ---
Author Organization [facility] work ([facility]) Address [address] [place] [address] Care Team Providers Care Cylinder Sander Operator Name Role Phone Meme Steel MD Primary Care Provider [phone] Pcp, Pcp Primary Care Provider Guadalupe Sosa MD Primary Care Provider [phone] Sena Dominguez Unavailable [phone] Levy Barry MD Primary Care Provider [phone] Source Comments The information that you have [...] please contact the sender immediately.[facility] ([facility]) Encounter Details Date Type Department Care Team (Late st Contact Info) Description 12/27/2007 Historical Note [facility] OSR Open Systems Resources System eDvyn Vásquez MD [address] [place] [address] [phone] Social History Tobacco Use Types Packs/Day Years [...] CARRILLO - [facility] 23[address] [facility] [address] [place] [phone] Brenda Clay MD 2315 [facility] [address] [place] [phone] 04/15/2026 10:00 AM EDT Office Visit LEATHA [facility] at [facility] + [facility] 4247 [facility] 105 [place] [phone] Sena Dominguez PA 4247 [facility] [place] [address] documented as of this encounter Visit Diagnoses Not on filedocumented in this encounter Care Teams Cylinder Sander Operator Relationship Specialty Start Date End Date Meme Steel MD [address] [place] [address] 105 [place] [address] PCP - General Pediatrics 06/05/18 04/25/22 No Pcp, Pcp PCP - General 06/08/22 07/19/22 Guadalupe Mcbride MD PCP - General Family Medicine 07/20/22 11/01/23 Sena Dominguez PA [address] [place] [address] [place] [address] PCP - BRADY Physician Energy Advisor 11/02/23 Levy Barry MD [address] [place] [address] [place] [address] PCP - General Family Medicine 12/20/23 documented as of this encounter
--- OUTSIDE RECORDS SUMMARY | 2025-09-18 11:44 | XMS_ITS | Encounter Summary ---
Author Organization [facility] work ([facility]) Address [address] [place] [address] Care Team Providers Care Green Feed Attendant Name Role Phone Meme Steel MD Primary Care Provider [phone] Pcp, Pcp Primary Care Provider Guadalupe Sosa MD Primary Care Provider [phone] Sena Dominguez Unavailable [phone] Levy Barry MD Primary Care Provider [phone] Source Comments The information that you have [...] error, please contact the sender immediately.[facility] ([facility]) Encounter Details Date Type Department Care Team (Late st Contact Info) Description 06/16/2008 Historical Note [facility] Dragonplay System Devyn Vásquez MD [address] [place] [address] [phone] Social History Tobacco Use Types Packs/Day Years [...] CARRILLO - [facility] [address] [facility] [address] [place] [phone] Brenda Clay MD 2315 [facility] [address] [place] [phone] 04/15/2026 10:00 AM EDT Office Visit [facility]HA [facility] + [facility] 4247 [facility] 105 [place] [phone] Sena Dominguez PA 4247 [facility] [place] [address] documented as of this encounter Visit Diagnoses Not on filedocumented in this encounter Care Teams Green Feed Attendant Relationship Specialty Start Date End Date Meme Steel MD [address] [place] [address] 105 [place] [address] PCP - General Pediatrics 06/05/18 04/25/22 No Pcp, Pcp PCP - General 06/08/22 07/19/22 Guadalupe Mcbride MD PCP - General Family Medicine 07/20/22 11/01/23 Sena Dominguez PA [address] [place] [address] [place] [address] PCP - BRADY Physician Major General 11/02/23 Levy Barry MD [address] [place] [address] [place] [address] PCP - General Family Medicine 12/20/23 documented as of this encounter
--- OUTSIDE RECORDS SUMMARY | 2025-09-18 11:44 | XMS_ITS | Encounter Summary ---
Author Organization [facility] work ([facility]) Address [address] [facility] [place] [address] Care Team Providers Care Early Childhood Teacher Name Role Phone Meme Steel MD Primary Care Provider [phone] Pcp, Pcp Primary Care Provider Guadalupe Sosa MD Primary Care Provider [phone] Sena Dominguez Unavailable [phone] Levy Barry MD Primary Care Provider [phone] Source Comments The information that you have [...] please contact the sender immediately.[facility] ([facility]) Encounter Details Date Type Department Care Team (Late st Contact Info) Description 11/07/2014 Historical Note [facility] CLARED System Devyn Vásquez MD [address] [place] [address] [phone] Social History Tobacco Use Types Packs/Day Years [...] LEATHA CARRILLO - [facility] 23[address] [facility] [address] [place] [phone] Brenda Clay MD 2315 [facility] [address] [place] [phone] 04/15/2026 10:00 AM EDT Office Visit [facility]HA [facility] + [facility] 4247 [facility] 105 [place] [phone] Sena Dominguez PA 4247 [facility] [place] [address] documented as of this encounter Visit Diagnoses Not on filedocumented in this encounter Care Teams Early Childhood Teacher Relationship Specialty Start Date End Date Meme Steel MD [address] [place] [address] 105 [place] [address] PCP - General Pediatrics 06/05/18 04/25/22 No Pcp, Pcp PCP - General 06/08/22 07/19/22 Guadalupe Mcbride MD PCP - General Family Medicine 07/20/22 11/01/23 Sena Dominguez PA [address] [place] [address] [place] [address] PCP - BRADY Physician Automobile Spring Repairer 11/02/23 Levy Barry MD [address] [place] [address] [place] [address] PCP - General Family Medicine 12/20/23 documented as of this encounter
--- OUTSIDE RECORDS SUMMARY | 2025-09-18 11:44 | XMS_ITS | Encounter Summary ---
Author Organization [facility] work ([facility]) Address [address] [place] [address] Care Team Providers Care Stone Rubber Name Role Phone Meme Steel MD Primary Care Provider [phone] Pcp, Pcp Primary Care Provider Guadalupe Sosa MD Primary Care Provider [phone] Sena Dominguez Unavailable [phone] Levy Barry MD Primary Care Provider [phone] Source Comments The information that you have received may contain highly confidential and/or federally protected health information. This information has been disclosed to you from records protected by [facility]. The law prohibits you from making any [...] contact the sender immediately.[facility] ([facility]) Encounter Details Date Type Department Care Team (Late st Contact Info) Description 03/24/2008 Historical Note [facility] [employer] System Devyn Vásquez MD [address] [place] [address] [phone] Social History Tobacco Use Types Packs/Day Years [...] CARRILLO - [facility] 2315 [facility] [address] [place] [phone] Brenda Clay MD 2315 [facility] [address] [place] [phone] 04/15/2026 10:00 AM EDT Office Visit LEATHA [facility] at [facility] + [facility] 4247 [facility] 105 [place] [phone] Sena Dominguez PA 4247 [facility] [place] [address] documented as of this encounter Visit Diagnoses Not on filedocumented in this encounter Care Teams Stone Rubber Relationship Specialty Start Date End Date Meme Steel MD [address] [place] [address] 105 [place] [address] PCP - General Pediatrics 06/05/18 04/25/22 No Pcp, Pcp PCP - General 06/08/22 07/19/22 Guadalupe Mcbride MD PCP - General Family Medicine 07/20/22 11/01/23 Sena Dominguez PA [address] [place] [address] [place] [address] PCP - BRADY Physician Marine Diver 11/02/23 Levy Barry MD [address] [place] [address] [place] [address] PCP - General Family Medicine 12/20/23 documented as of this encounter
--- OUTSIDE RECORDS SUMMARY | 2025-09-18 11:44 | XMS_ITS | Encounter Summary ---
Author Organization [facility] work ([facility]) Address [address] [facility] [address] [place] [address] Care Team Providers Care Personal Driver Name Role Phone Meme Steel MD Primary Care Provider [phone] Pcp, Pcp Primary Care Provider Guadalupe Sosa MD Primary Care Provider [phone] Sena Dominguez Unavailable [phone] Levy Barry MD Primary Care Provider [phone] Source Comments The information that you have received may contain highly confidential and/or federally protected health information. This information has been disclosed to you from records protected by [facility]. The law prohibits you from making any [...] error, please contact the sender immediately.[facility] ([facility]) Encounter Details Date Type Department Care Team (Late st Contact Info) Description 12/27/2007 Historical Note [facility] oDesk System Devyn Vásquez MD [address] [place] [address] [phone] Social History Tobacco Use Types Packs/Day Years [...] Visit LEATHA CARRILLO - [facility] [address] [facility] [address] [place] [phone] Brenda Clay MD 2315 [facility] [address] [place] [phone] 04/15/2026 10:00 AM EDT Office Visit LE[facility]HA [facility] + [facility] [address] [facility] [address] [place] [phone] Sena Dominguez PA 4247 [facility] [place] [address] documented as of this encounter Visit Diagnoses Not on filedocumented in this encounter Care Teams Personal Driver Relationship Specialty Start Date End Date Meme Steel MD [address] [place] [address] 105 [place] [address] PCP - General Pediatrics 06/05/18 04/25/22 No Pcp, Pcp PCP - General 06/08/22 07/19/22 Guadalupe Mcbride MD PCP - General Family Medicine 07/20/22 11/01/23 Sena Dominguez PA [address] [place] [address] [place] [address] PCP - BRADY Physician Oil Sales And Service Rep 11/02/23 Levy Barry MD [address] [place] [address] [place] [address] PCP - General Family Medicine 12/20/23 documented as of this encounter
--- OUTSIDE RECORDS SUMMARY | 2025-09-18 11:44 | XMS_ITS | Encounter Summary ---
Author Organization [facility] work ([facility]) Address [address] [place] [address] Care Team Providers Care Supervisor Refining Name Role Phone Meme Steel MD Primary Care Provider [phone] Pcp, Pcp Primary Care Provider Guadalupe Sosa MD Primary Care Provider [phone] Sena Dominguez Unavailable [phone] Levy Barry MD Primary Care Provider [phone] Source Comments The information that you have [...] contact the sender immediately.[facility] ([facility]) Encounter Details Date Type Department Care Team (Late st Contact Info) Description 06/16/2014 Historical Note [facility] Cloud Content System Devyn Vásquez MD [address] [place] [address] [phone] Social History Tobacco Use Types Packs/Day Years [...] CARRILLO - [facility] [address] [facility] [address] [place] [phone] Brenda Clay MD 2315 [facility] [address] [place] [address] 04/15/2026 10:00 AM EDT Office Visit LEATHA [facility] + [facility] 4247 [facility] [address] [place] [phone] Sena Dominguez PA 4247 [facility] [place] [address] documented as of this encounter Visit Diagnoses Not on filedocumented in this encounter Care Teams Supervisor Refining Relationship Specialty Start Date End Date Meme Steel MD [address] [place] [address] 105 [place] [address] PCP - General Pediatrics 06/05/18 04/25/22 No Pcp, Pcp PCP - General 06/08/22 07/19/22 Guadalupe Mcbride MD PCP - General Family Medicine 07/20/22 11/01/23 Sena Dominguez PA [address] [place] [address] [place] [address] PCP - BRADY Physician Chip Mixing Machine Operator 11/02/23 Levy Barry MD [address] [place] [address] [place] [address] PCP - General Family Medicine 12/20/23 documented as of this encounter
--- OUTSIDE RECORDS SUMMARY | 2025-09-18 11:44 | XMS_ITS | Encounter Summary ---
Author Organization [facility] work ([facility]) Address [address] [place] [address] Care Team Providers Care Calender Wind Up Helper Name Role Phone Meme Steel MD Primary Care Provider [phone] Pcp, Pcp Primary Care Provider Guadalupe Sosa MD Primary Care Provider Sena Dominguez Unavailable [phone] Levy Barry MD Primary Care Provider [phone] Source Comments The information that you have [...] the sender immediately.[facility] ([facility]) Encounter Details Date Type Department Care Team (Late st Contact Info) Description 05/20/2014 Historical Note [facility] Distill System Devyn Vásquez MD [address] [place] [address] [phone] Social History Tobacco Use Types Packs/Day Years [...] LEATHA CARRILLO - [facility] at [facility] 2315 [facility] [address] [place] [phone] Brenda Clay MD 2315 [facility] [address] [place] [phone] 04/15/2026 10:00 AM EDT Office Visit LEATHA Primary [facility] at [facility] + [facility] 4[address] [facility] [address] [place] [phone] Sena Dominguez PA 4247 [facility] [place] [address] documented as of this encounter Visit Diagnoses Not on filedocumented in this encounter Care Teams Calender Wind Up Helper Relationship Specialty Start Date End Date Meme Steel MD [address] [place] [address] 105 [place] [address] PCP - General Pediatrics 06/05/18 04/25/22 No Pcp, Pcp PCP - General 06/08/22 07/19/22 Guadalupe Mcbride MD PCP - General Family Medicine 07/20/22 11/01/23 Sena Dominguez PA [address] [place] [address] [place] [address] PCP - BRADY Physician Gold Miner 11/02/23 Levy Barry MD [address] [place] [address] [place] [address] PCP - General Family Medicine 12/20/23 documented as of this encounter
--- OUTSIDE RECORDS SUMMARY | 2025-09-18 11:44 | XMS_ITS | Encounter Summary ---
Author Organization [facility] work ([facility]) Address [address] [place] [address] Care Team Providers Care Diagnostic Medical Sonographer Name Role Phone Meme Steel MD Primary Care Provider [phone] Pcp, Pcp Primary Care Provider Guadalupe Sosa MD Primary Care Provider [phone] Sena Dominguez Unavailable [phone] Levy Barry MD Primary Care Provider [phone] Source Comments The information that you have [...] sender immediately.[facility] ([facility]) Encounter Details Date Type Department Care Team (Late st Contact Info) Description 10/07/2014 Historical Note [facility] Rattle System Devyn Vásquez MD [address] [place] [address] [phone] Social History Tobacco Use Types Packs/Day Years [...] CARRILLO - [facility] 2315 [facility] [address] [place] [phone] Brenda Clay MD 2315 [place] [facility] [address] [place] [phone] 04/15/2026 10:00 AM EDT Office Visit [facility]HA [facility] at [facility] + [facility] 4247 [facility] [address] [place] [phone] Sena Dominguez PA 4247 [facility] [place] [address] documented as of this encounter Visit Diagnoses Not on filedocumented in this encounter Care Teams Diagnostic Medical Sonographer Relationship Specialty Start Date End Date Meme Steel MD [address] [place] [address] 105 [place] [address] PCP - General Pediatrics 06/05/18 04/25/22 No Pcp, Pcp PCP - General 06/08/22 07/19/22 Guadalupe Mcbride MD PCP - General Family Medicine 07/20/22 11/01/23 Sena Dominguez PA [address] [place] [address] [place] [address] PCP - BRADY Physician Pre Owned Sales Consultant 11/02/23 Levy Barry MD [address] [place] [address] [place] [address] PCP - General Family Medicine 12/20/23 documented as of this encounter
--- OUTSIDE RECORDS SUMMARY | 2025-09-18 11:44 | XMS_ITS | Encounter Summary ---
Author Organization [facility] work ([facility]) Address [address] [place] [address] Care Team Providers Care Sound Effects Technician Name Role Phone Meme Steel MD Primary Care Provider [phone] Pcp, Pcp Primary Care Provider Guadalupe Sosa MD Primary Care Provider [phone] Sena Dominguez Unavailable [phone] Levy Barry MD Primary Care Provider [phone] Source Comments The information that you have received may contain highly confidential and/or federally protected health information. This information has been disclosed to you from records protected by [facility]. The law prohibits you [...] please contact the sender immediately.[facility] ([facility]) Encounter Details Date Type Department Care Team (Late st Contact Info) Description 06/06/2008 Historical Note [facility] Optimus3 System Devyn Vásquez MD [address] [place] [address] [phone] Social History Tobacco Use Types Packs/Day Years [...] [facility] 2315 [facility] [address] [place] [phone] Brenda Clay MD 2315 [facility] [address] [place] [phone] 04/15/2026 10:00 AM EDT Office Visit LEATHA Primary Care at [facility] + [facility] 4247 [facility] [address] [place] [phone] Sena Dominguez PA 4247 [facility] [place] [address] documented as of this encounter Visit Diagnoses Not on filedocumented in this encounter Care Teams Sound Effects Technician Relationship Specialty Start Date End Date Meme Steel MD [address] [place] [address] 105 [place] [address] PCP - General Pediatrics 06/05/18 04/25/22 No Pcp, Pcp PCP - General 06/08/22 07/19/22 Guadalupe Mcbride MD PCP - General Family Medicine 07/20/22 11/01/23 Sena Dominguez PA [address] [place] [address] [place] [address] PCP - BRADY Physician Electroencephalograph Technician 11/02/23 Levy Barry MD [address] [place] [address] [place] [address] PCP - General Family Medicine 12/20/23 documented as of this encounter
--- OUTSIDE RECORDS SUMMARY | 2025-09-18 11:44 | XMS_ITS | Encounter Summary ---
Author Organization [facility] work ([facility]) Address [address] [place] [address] Care Team Providers Care Workday Manager Name Role Phone Meme Steel MD Primary Care Provider [phone] Pcp, Pcp Primary Care Provider Guadalupe Sosa MD Primary Care Provider [phone] Sena Dominguez Unavailable [phone] Levy Barry MD Primary Care Provider [phone] Source Comments The information that you have [...] immediately.[facility] ([facility]) Encounter Details Date Type Department Care Team (Late st Contact Info) Description 01/02/2014 Historical Note [facility] Effektif System Devyn Vásquez MD [address] [place] [address] [phone] Social History Tobacco Use Types Packs/Day Years [...] CARRILLO - [facility] [address] [facility] [address] [place] [phone] Brenda Clay MD 2315 [facility] [address] [place] [phone] 04/15/2026 10:00 AM EDT Office Visit LEATHA Primary [facility] at [facility] + [facility] 4247 [facility] [address] [place] [phone] Sena Dominguez PA 4247 [facility] [place] [address] documented as of this encounter Visit Diagnoses Not on filedocumented in this encounter Care Teams Workday Manager Relationship Specialty Start Date End Date Meme Steel MD [address] [place] [address] 105 [place] [address] PCP - General Pediatrics 06/05/18 04/25/22 No Pcp, Pcp PCP - General 06/08/22 07/19/22 Guadalupe Mcbride MD PCP - General Family Medicine 07/20/22 11/01/23 Sena Dominguez PA [address] [place] [address] [place] [address] PCP - RBADY Physician Asset Analyst 11/02/23 Levy Barry MD [address] [place] [address] [place] [address] PCP - General Family Medicine 12/20/23 documented as of this encounter
--- OUTSIDE RECORDS SUMMARY | 2025-09-18 11:44 | XMS_ITS | Encounter Summary ---
Author Organization [facility] work ([facility]) Address [address] [facility] [address] [place] [address] Care Team Providers Care Pesticide Chemist Name Role Phone Meme Steel MD Primary Care Provider [phone] Pcp, Pcp Primary Care Provider Guadalupe Sosa MD Primary Care Provider [phone] Sena Dominguez Unavailable [phone] Levy Barry MD Primary Care Provider [...] please contact the sender immediately.[facility] ([facility]) Encounter Details Date Type Department Care Team (Late st Contact Info) Description 09/22/2014 Historical Note [facility] 51 Auto System Devyn Vásquez MD [address] [place] [address] [phone] Social History Tobacco Use Types Packs/Day Years [...] LEATHA CARRILLO - [facility] 2315 [facility] G30 [place] [phone] Brenda Clay MD 2315 [facility] [address] [place] [phone] 04/15/2026 10:00 AM EDT Office Visit LEATHA [facility] at [facility] + [facility] 4247 [facility] 105 [place] [phone] Sena Dominguez PA 4247 [facility] [place] [address] documented as of this encounter Visit Diagnoses Not on filedocumented in this encounter Care Teams Pesticide Chemist Relationship Specialty Start Date End Date Meme Steel MD [address] [place] [address] 105 [place] [address] PCP - General Pediatrics 06/05/18 04/25/22 No Pcp, Pcp PCP - General 06/08/22 07/19/22 Guadalupe Mcbride MD PCP - General Family Medicine 07/20/22 11/01/23 Sena Dominguez PA [address] [place] [address] [place] [address] PCP - BRADY Physician Outdoor Studies Director 11/02/23 Levy Barry MD [address] [place] [address] [place] [address] PCP - General Family Medicine 12/20/23 documented as of this encounter
--- OUTSIDE RECORDS SUMMARY | 2025-09-18 11:44 | XMS_ITS | Encounter Summary ---
Author Organization [facility] work ([facility]) Address [address] [place] [address] Care Team Providers Care Web Site Project Manager Name Role Phone Meme Steel MD Primary Care Provider [phone] Pcp, Pcp Primary Care Provider Guadalupe Sosa MD Primary Care Provider [phone] Sena Dominguez Unavailable [phone] Levy Barry MD Primary Care Provider [phone] Source Comments The information that you have [...] contact the sender immediately.[facility] ([facility]) Encounter Details Date Type Department Care Team (Late st Contact Info) Description 01/04/2008 Historical Note [facility] PreApps System Devyn Vásquez MD [address] [place] [address] [phone] Social History Tobacco Use Types Packs/Day Years [...] [place] [facility] 2315 [facility] [address] [place] [phone] Brenda Clay MD 2315 [facility] [address] [place] [phone] 04/15/2026 10:00 AM EDT Office Visit LEATHA Primary [facility] at [facility] + [facility] 4247 [facility] 105 [place] [phone] Sena Dominguez PA 4247 [facility] [place] [address] documented as of this encounter Visit Diagnoses Not on filedocumented in this encounter Care Teams Web Site Project Manager Relationship Specialty Start Date End Date Meme Steel MD [address] [place] [address] 105 [place] [address] PCP - General Pediatrics 06/05/18 04/25/22 No Pcp, Pcp PCP - General 06/08/22 07/19/22 Guadalupe Mcbride MD PCP - General Family Medicine 07/20/22 11/01/23 Sena Dominguez PA [address] [place] [address] [place] [address] PCP - BRADY Physician Bore Mill Operator 11/02/23 Levy Barry MD [address] [place] [address] [place] [address] PCP - General Family Medicine 12/20/23 documented as of this encounter
--- OUTSIDE RECORDS SUMMARY | 2025-09-18 11:44 | XMS_ITS | Encounter Summary ---
Author Organization [facility] work ([facility]) Address [address] [place] [address] Care Team Providers Care Military Personnel Specialist Name Role Phone Meme Steel MD Primary Care Provider [phone] Pcp, Pcp Primary Care Provider Guadalupe Sosa MD Primary Care Provider [phone] Sena Dominguez Unavailable [phone] Levy Barry MD Primary Care Provider [phone] Source Comments The information that you have [...] please contact the sender immediately.[facility] ([facility]) Encounter Details Date Type Department Care Team (Late st Contact Info) Description 10/02/2007 Historical Note [facility]G Clash Media Advertising System Devyn Vásquez MD [address] [place] [address] [phone] Social History Tobacco Use Types Packs/Day Years [...] LEATHA CARRILLO - [facility] 2315 [facility] G30 [place] [phone] Brenda Clay MD 2315 [facility] [address] [place] [phone] 04/15/2026 10:00 AM EDT Office Visit LEATHA [facility] + [facility] [address] [facility] 105 [place] [phone] Sena Dominguez PA 4247 [facility] [place] [address] documented as of this encounter Visit Diagnoses Not on filedocumented in this encounter Care Teams Military Personnel Specialist Relationship Specialty Start Date End Date Meme Steel MD [address] [place] [address] 105 [place] [address] PCP - General Pediatrics 06/05/18 04/25/22 No Pcp, Pcp PCP - General 06/08/22 07/19/22 Guadalupe Mcbride MD PCP - General Family Medicine 07/20/22 11/01/23 Sena Dominguez PA [address] [place] [address] [place] [address] PCP - BRADY Physician Workers Compensation Legal Secretary 11/02/23 Levy Barry MD [address] [place] [address] [place] [address] PCP - General Family Medicine 12/20/23 documented as of this encounter
--- OUTSIDE RECORDS SUMMARY | 2025-09-18 11:44 | XMS_ITS | Encounter Summary ---
Author Organization [facility] work ([facility]) Address [address] [place] [address] Care Team Providers Care Hemmer Chainstitch Name Role Phone Meme Steel MD Primary Care Provider [phone] Pcp, Pcp Primary Care Provider Guadalupe Sosa MD Primary Care Provider [phone] Sena Dominguez Unavailable [phone] Levy Barry MD Primary Care Provider [phone] Source Comments The information that you have received may contain highly confidential and/or federally protected health information. This information has been disclosed to you from records protected by [facility]. The law prohibits you from making [...] sender immediately.[facility] ([facility]) Encounter Details Date Type Department Care Team (Late st Contact Info) Description 08/13/2013 Historical Note [facility] Shanghai Credit Information Services System Devyn Vásquez MD [address] [place] [address] [phone] Social History Tobacco Use Types Packs/Day Years [...] - [facility] at [facility] 2315 [facility] G30 [place] [phone] Brenda Clay MD 2315 [facility] [address] [place] [phone] 04/15/2026 10:00 AM EDT Office Visit LEATHA [facility] at [facility] + [facility] 4247 [facility] 105 [place] [phone] Sena Dominguez PA 4247 [facility] [place] [address] documented as of this encounter Visit Diagnoses Not on filedocumented in this encounter Care Teams Hemmer Chainstitch Relationship Specialty Start Date End Date Meme Steel MD [address] [place] [address] 105 [place] [address] PCP - General Pediatrics 06/05/18 04/25/22 No Pcp, Pcp PCP - General 06/08/22 07/19/22 Guadalupe Mcbride MD PCP - General Family Medicine 07/20/22 11/01/23 Sena Dominguez PA [address] [place] [address] [place] [address] PCP - BRADY Physician Pyrotechnic Mixer 11/02/23 Levy Barry MD [address] [place] [address] [place] [address] PCP - General Family Medicine 12/20/23 documented as of this encounter
--- OUTSIDE RECORDS SUMMARY | 2025-09-18 11:44 | XMS_ITS | Encounter Summary ---
Author Organization [facility] work ([facility]) Address [address] [place] [address] Care Team Providers Care Draw Frame Operator Name Role Phone Meme Steel MD Primary Care Provider [phone] Pcp, Pcp Primary Care Provider Guadalupe Sosa MD Primary Care Provider Sena Dominguez Unavailable Levy Barry MD Primary Care Provider [phone] Source Comments The information that you have [...] please contact the sender immediately.[facility] ([facility]) Encounter Details Date Type Department Care Team (Late st Contact Info) Description 11/26/2007 Historical Note [facility] Variable System Devyn Vásquez MD [address] [place] [address] [phone] Social History Tobacco Use Types Packs/Day Years [...] CARRILLO - [facility] 2315 [facility] G30 [place] [phone] Brenda Clay MD 2315 [facility] [address] [place] [phone] 04/15/2026 10:00 AM EDT Office Visit LEATHA [facility] at [facility] + [facility] 4247 [facility] 105 [place] [phone] Sena Dominguez PA 4247 [facility] [place] [address] documented as of this encounter Visit Diagnoses Not on filedocumented in this encounter Care Teams Draw Frame Operator Relationship Specialty Start Date End Date Meme Steel MD [address] [place] [address] 105 [place] [address] PCP - General Pediatrics 06/05/18 04/25/22 No Pcp, Pcp PCP - General 06/08/22 07/19/22 Guadalupe Mcbride MD PCP - General Family Medicine 07/20/22 11/01/23 Sena Dominguez PA [address] [place] [address] [place] [address] PCP - BRADY Physician Manager Nuclear 11/02/23 Levy Barry MD [address] [place] [address] [place] [address] PCP - General Family Medicine 12/20/23 documented as of this encounter
--- OUTSIDE RECORDS SUMMARY | 2025-09-18 11:44 | XMS_ITS | Clinical Summary ---
Author Organization [facility] work ([facility]) Address [address] [place] [address] Care Team Providers Care Chief Of Party Name Role Phone Sena Dominguez Unavailable [phone] Levy Barry MD Primary Care Provider [phone] Source Comments The information that you have received may contain highly confidential and/or federally protected health information. This information has been disclosed to you from records protected by [employer]. The law prohibits you from making any [...] please contact the sender immediately.[facility] ([facility]) Allergies Active Allergy Reactions Criticality Noted Date [...] Department Care Team Description 07/07/2025 Results Follow-Up [facility] Primary Care at [facility] + [address] [place] [address] Annel Jhaveri PA Comprehensive metabolic panel, CBC and differential, Lipid panel w/Reflex to Direct LDL from Last 3 Months Immunizations Immunization Administration Dates Next Due COVID-19 (Spikevax 2022+)(PF), 12y+ 08/19/2023 COVID-19 mRNA (PF) (Edusoft, 2 dose series) 11/01/2021 DTaP 08/12/2008, 5,2004,10/19,2004 [...] due to disorder of central nervous system [place] 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 1 01/31/2025 Alcohol and Drug Use [...] Recorded In the past 12 months has [place], gas, oil, or water company threatened to [...] 10:00 AM EST Office Visit LEATHA CARRILLO [facility] [address] [facility] [address] [place] [phone] Brenda Clay MD [address] [place] [phone] 04/15/2026 10:00 AM EDT Office Visit LEATHA Primary Care at [facility] + [facility] [address] [facility] [address] [place] [phone] Sena Dominguez PA [address] [facility] [place] [address] Health Maintenance Due Date Last Done Comments [...] lest 1 x week for 10 minutes (superintendent terminal goal of 150 minutes planned movement weekly) [...] ORDERABLES Final R esult [facility] [address] [place] [address] [place] [address] [facility] ([email or web address] [place] [address] * (ABNORMAL) Lipid panel w/Reflex to Direct LDL (07/05/2025 10:34 AM EDT) Cholesterol 192 <200 mg/dL [facility] HDL Cholesterol 62 > OR = 50 mg/dL [facility] Triglycerides 81 <150 mg/dL [facility] LDL Cholesterol, Calculated 112(H) mg/dL (calc) [facility] Comment: Reference range: <100 Desirable range <100 mg/dL for primary prevention; <70 mg/dL for patients with CHD or diabetic patients with > or = 2 CHD risk factors. LDL-C is now calculated using the Madelyn calculation, which is a validated novel method providing better accuracy than the Friedewald equation in the estimation of LDL-C. Antoine PANTOJA et al. DEBORA. 2013;310(19): 1603-6142 (http://education.[employer]/faq/OGW818) Cholesterol/HDL Ratio 3.1 <5.0 (calc) [facility] ([email or web address] NON-HDL CHOLESTEROL 130(H) <130 mg/dL (calc) [facility] ([email or web address] Comment: For patients with diabetes plus [...] ORDERABLES Final R esult [facility] [address] [place] [address] [place] [address] [facility] ([email or web address] [place] [address] * Comprehensive metabolic panel (07/05/2025 10:34 AM EDT) [facility] Glucose 80 65 - 99 mg/dL [facility] ([email or web address] Comment: Fasting reference interval BUN 9 7 - 25 mg/dL [email or web address] Creatinine 0.64 0.50 - 0.96 mg/dL [email or web address] EGFR 129 > OR = 60 mL/min/1. 73m2 [email or web address] BUN/Creatinine Ratio SEE NOTE: 6 - 22 (calc) [email or web address] Comment: Not Reported: BUN and Creatinine are within reference range. Sodium 138 135 - 146 mmol/L [email or web address] Potassium 4.5 3.4 - 4.8 mmol/L [facility] Chloride 107 98 - 110 mmol/L [facility] CO2 23 20 - 32 mmol/L [facility] Calcium 9.0 8.6 - 10.2 mg/dL [facility] Total Protein 7.3 6.4 - 8.4 g/dL [facility] Albumin 3.8 3.6 - 5.1 g/dL [facility] ([email or web address] Globulin, Calculated 3.5 2.2 - 4.0 g/dL (calc) [email or web address] ALBUMIN/GLOBULI N RATIO 1.1 0.9 - 2.3 (calc) [email or web address] Total Bilirubin 0.3 0.2 - 1.2 mg/dL [email or web address] Alkaline Phosphatase 91 31 - 125 U/L [email or web address] AST 20 10 - 30 U/L [email or web address] ALT 16 6 - 29 U/L [email or web address] Blood Blood specimen / Unknown 07/05/2025 10:34 AM EDT 07/05/2025 10:34 AM EDT Narrative [facility] - 07/05/2025 6:11 PM EDT 1 OF 2 REQS FASTING:YES FASTING: YES Holly VÁZQUEZ LAB BLOOD ORDERABLES Final R esult [facility] [place] [address] [facility] ([email or web address]ate [address] [place] [address] [place] [phone] from Last 3 Months Insurance [place] [id number] [facility] [employer] [place] [id number] [facility] [employer] [place] Care Teams Chief Of Party Relationship Specialty Start Date End Date Sena Dominguez PA [facility] [place] [address] PCP - BRADY Physician Book Jacket Cover Machine Operator 11/02/23 Levy Barry MD [address] [place] [address] [place] [address] PCP - General Family Medicine 12/20/23
--- OUTSIDE RECORDS SUMMARY | 2025-09-18 11:44 | XMS_ITS | Encounter Summary ---
Author Organization [facility] [address] work ([facility]) Address [address] [place] [address] Care Team Providers Care Herd Tester Name Role Phone Meme Steel MD Primary Care Provider [phone] Pcp, Pcp Primary Care Provider Guadalupe Sosa MD Primary Care Provider [phone] Sena Dominguez Unavailable [phone] Levy Barry MD Primary Care Provider [phone] Source Comments The information that you have [...] in error, please contact the sender immediately. ([facility]) Encounter Details Date Type Department Care Team (Late st Contact Info) Description 08/13/2013 Historical Note [facility] [employer] [facility] Devyn Vásquez MD [address] [place] [phone] Social History Tobacco Use Types Packs/Day Years [...] Visit LEATHA CARRILLO - [facility] [address] [facility] [address] [place] [phone] Brenda Clay MD [address] [facility] [address] [place] [phone] 04/15/2026 10:00 AM EDT Office Visit LEATHA Primary Care at [facility] + [facility] [address] [facility] [address] [place] [phone] Sena Dominguez PA [address] [facility] [place] [address] documented as of this encounter Visit Diagnoses Not on filedocumented in this encounter Care Teams Herd Tester Relationship Specialty Start Date End Date Meme Steel MD [address] [place] [address] [place] [address] PCP - General Pediatrics 06/05/18 04/25/22 No Pcp, Pcp PCP - General 06/08/22 07/19/22 Guadalupe Mcbride MD PCP - General Family Medicine 07/20/22 11/01/23 Sena Dominguez PA [address] [place] [address] [place] [address] PCP - BRADY Physician Automatic Developer 11/02/23 Levy Barry MD [address] [place] [address] [place] [address] PCP - General Family Medicine 12/20/23 documented as of this encounter
--- OUTSIDE RECORDS SUMMARY | 2025-09-18 11:44 | XMS_ITS | Encounter Summary ---
Author Organization [facility] work ([facility]) Address [address] [place] [address] Care Team Providers Care Roll Forger Name Role Phone Meme Steel MD Primary Care Provider [phone] Pcp, Pcp Primary Care Provider Guadalupe Sosa MD Primary Care Provider [phone] Sena Dominguez Unavailable [phone] Levy Barry MD Primary Care Provider [phone] Source Comments The information that you have [...] the sender immediately.[facility] ([facility]) Encounter Details Date Type Department Care Team (Late st Contact Info) Description 01/04/2008 Historical Note [facility] [employer] [facility] Devyn Vásquez MD [address] [place] [phone] Social History Tobacco Use Types Packs/Day Years [...] - [facility] [address] [facility] [address] [place] [phone] Brenda Clay MD 23[address] [facility] [address] [place] [phone] 04/15/2026 10:00 AM EDT Office Visit LEATHA Primary Care at [facility] + [facility] [address] [facility] 105 [place] [phone] Sena Dominguez PA [address] [facility] [place] [address] documented as of this encounter Visit Diagnoses Not on filedocumented in this encounter Care Teams Roll Forger Relationship Specialty Start Date End Date Meme Steel MD [address] [place] [address] [place] [address] PCP - General Pediatrics 06/05/18 04/25/22 No Pcp, Pcp PCP - General 06/08/22 07/19/22 Guadalupe Mcbride MD PCP - General Family Medicine 07/20/22 11/01/23 Sena Dominguez PA [address] [place] [address] [place] [address] PCP - BRADY Physician Inside Sales Manager 11/02/23 Levy Barry MD [address] [place] [address] [place] [address] PCP - General Family Medicine 12/20/23 documented as of this encounter
--- OUTSIDE RECORDS SUMMARY | 2025-09-18 11:44 | XMS_ITS | Encounter Summary ---
Author Organization [facility] work ([facility]) Address [address] [place] [address] Care Team Providers Care Checking Clerk Name Role Phone Meme Steel MD Primary Care Provider [phone] Pcp, Pcp Primary Care Provider Guadalupe Sosa MD Primary Care Provider [phone] Sena Dominguez Unavailable [phone] Levy Barry MD Primary Care Provider [phone] Source Comments The information that you have [...] please contact the sender immediately.[facility] ([facility]) Encounter Details Date Type Department Care Team (Late st Contact Info) Description 09/22/2014 Historical Note [facility] [employer] [facility] Devyn Vásquez MD [address] [place] [phone] Social History Tobacco Use Types Packs/Day Years [...] [facility] [address] [facility] [address] [place] [phone] Brenda Clay MD 23[address] [facility] [address] [place] [phone] 04/15/2026 10:00 AM EDT Office Visit LEATHA [facility] at [facility] + [facility] [address] [facility] 105 [place] [phone] Sena Dominguez PA [address] [facility] [place] [address] documented as of this encounter Visit Diagnoses Not on filedocumented in this encounter Care Teams Checking Clerk Relationship Specialty Start Date End Date Meme Steel MD [address] [place] [address] [place] [address] PCP - General Pediatrics 06/05/18 04/25/22 No Pcp, Pcp PCP - General 06/08/22 07/19/22 Guadalupe Mcbride MD PCP - General Family Medicine 07/20/22 11/01/23 Sena Dominguez PA [address] [place] [address] [place] [address] PCP - BRADY Physician Executive Sales Assistant 11/02/23 Levy Barry MD [address] [place] [address] [place] [address] PCP - General Family Medicine 12/20/23 documented as of this encounter
--- OUTSIDE RECORDS SUMMARY | 2025-09-18 11:44 | XMS_ITS | Encounter Summary ---
Author Organization [facility] work ([facility]) Address [address] [place] [address] Care Team Providers Care Metal Turner Name Role Phone Meme Steel MD Primary Care Provider [phone] Pcp, Pcp Primary Care Provider Guadalupe Sosa MD Primary Care Provider [phone] Sena Dominguez Unavailable [phone] Levy Barry MD Primary Care Provider [phone] Source Comments The information that you have [...] contact the sender immediately.[facility] ([facility]) Encounter Details Date Type Department Care Team (Late st Contact Info) Description 09/22/2014 Historical Note [facility] Major Aide [facility] Devyn Vásquez MD [address] [place] [phone] Social History Tobacco Use Types Packs/Day Years [...] CARRILLO - [facility] at [facility] [address] [facility] [address] [place] [phone] Brenda Clay MD 2315 [facility] [address] [place] [phone] 04/15/2026 10:00 AM EDT Office Visit LEATHA Primary [facility] at [facility] + [facility] [address] [facility] 105 [place] [phone] Sena Dominguez PA 4[address] [facility] [place] [address] documented as of this encounter Visit Diagnoses Not on filedocumented in this encounter Care Teams Metal Turner Relationship Specialty Start Date End Date Meme Steel MD [address] [place] [address] [place] [address] PCP - General Pediatrics 06/05/18 04/25/22 No Pcp, Pcp PCP - General 06/08/22 07/19/22 Guadalupe Mcbride MD PCP - General Family Medicine 07/20/22 11/01/23 Sena Dominguez PA [address] [place] [address] [place] [address] PCP - BRADY Physician Core Paster 11/02/23 Levy Barry MD [address] [place] [address] [place] [address] PCP - General Family Medicine 12/20/23 documented as of this encounter
--- OUTSIDE RECORDS SUMMARY | 2025-09-18 11:45 | XMS_ITS | Encounter Summary ---
Author Organization [facility] work ([facility]) Address [address] [facility] [address] [place] [address] Care Team Providers Care Financial Aids Officer Name Role Phone Meme Steel MD Primary Care Provider [phone] Pcp, Pcp Primary Care Provider Guadalupe Sosa MD Primary Care Provider [phone] Sena Dominguez Unavailable [phone] Levy Barry MD Primary Care Provider [phone] Source Comments The information that you have received may contain highly confidential and/or federally protected health information. This information has been disclosed to you from records protected by [facility]. The law prohibits you from making any [...] - [place] ([facility]) Encounter Details Date Type Department Care Team (Late st Contact Info) Description 08/14/2013 Historical Note [facility] [employer] [facility] Devyn Vásquez MD [address] [place] [phone] Social History Tobacco Use Types Packs/Day Years [...] - [facility] at [facility] [address] [facility] [address] [place] [phone] Brenda Clay MD 2315 [facility] [address] [place] [phone] 04/15/2026 10:00 AM EDT Office Visit LEATHA Primary Care at [facility] + [facility] 4[address] [facility] 105 [place] [phone] Sena Dominguez PA [address] [facility] [place] [address] documented as of this encounter Visit Diagnoses Not on filedocumented in this encounter Care Teams Financial Aids Officer Relationship Specialty Start Date End Date Meme Steel MD [address] [place] [address] [place] [address] PCP - General Pediatrics 06/05/18 04/25/22 No Pcp, Pcp PCP - General 06/08/22 07/19/22 Guadalupe Mcbride MD PCP - General Family Medicine 07/20/22 11/01/23 Sena Dominguez PA [address] [place] [address] [place] [address] PCP - BRADY Physician Manager Behavior 11/02/23 Levy Barry MD [address] [place] [address] [place] [address] PCP - General Family Medicine 12/20/23 documented as of this encounter
--- OUTSIDE RECORDS SUMMARY | 2025-09-18 11:45 | XMS_ITS | Encounter Summary ---
Author Organization [facility] work ([facility]) Address [address] [place] [address] Care Team Providers Care Watch Electrician Name Role Phone Meme Steel MD Primary Care Provider [phone] Pcp, Pcp Primary Care Provider Guadalupe Sosa MD Primary Care Provider [phone] Sena Dominguez Unavailable [phone] Levy Barry MD Primary Care Provider [phone] Source Comments The information that you have [...] error, please contact the sender immediately.[facility] ([facility]) Encounter Details Date Type Department Care Team (Late st Contact Info) Description 05/14/2013 Historical Note [facility] [employer] [facility] Devyn Vásquez MD [address] [place] [address] [phone] Social History Tobacco Use Types Packs/Day Years [...] CARRILLO - [facility] 23[address] [facility] [address] [place] [phone] Brenda Clay MD 2315 [facility] [address] [place] [phone] 04/15/2026 10:00 AM EDT Office Visit LEATHA Primary Care at [facility] + [facility] 4[address] [facility] 105 [place] [phone] Sena Dominguez PA 4247 [facility] [place] [address] documented as of this encounter Visit Diagnoses Not on filedocumented in this encounter Care Teams Watch Electrician Relationship Specialty Start Date End Date Meme Steel MD [address] [place] [address] [place] [address] PCP - General Pediatrics 06/05/18 04/25/22 No Pcp, Pcp PCP - General 06/08/22 07/19/22 Guadalupe Mcbride MD PCP - General Family Medicine 07/20/22 11/01/23 Sena Dominguez PA [address] [place] [address] [place] [address] PCP - BRADY Physician Operations Vocational Instructor 11/02/23 Levy Barry MD [address] [place] [address] [place] [address] PCP - General Family Medicine 12/20/23 documented as of this encounter
--- OUTSIDE RECORDS SUMMARY | 2025-09-18 11:45 | XMS_ITS | Encounter Summary ---
Author Organization [facility] work ([facility]) Address [address] [place] [address] Care Team Providers Care Erp Business Analyst Name Role Phone Meme Steel MD Primary Care Provider [phone] Pcp, Pcp Primary Care Provider Guadalupe Sosa MD Primary Care Provider [phone] Sena Dominguez Unavailable [phone] Levy Barry MD Primary Care Provider [phone] Source Comments The information that you have [...] the sender immediately.[facility] ([facility]) Encounter Details Date Type Department Care Team (Late st Contact Info) Description 01/24/2013 Historical Note [facility] [employer] [facility] Devyn Vásquez MD [address] [place] [phone] Social History Tobacco Use Types Packs/Day Years [...] Visit LEATHA CARRILLO - [facility] 23[address] [facility] [address] [place] [phone] Brenda Clay MD 2315 [facility] [address] [place] [phone] 04/15/2026 10:00 AM EDT Office Visit LEATHA Primary [facility] at [facility] + [facility] [address] [facility] 105 [place] [phone] Sena Dominguez PA 4247 [facility] [place] [address] documented as of this encounter Visit Diagnoses Not on filedocumented in this encounter Care Teams Erp Business Analyst Relationship Specialty Start Date End Date Meme Steel MD [address] [place] [place] [address] [place] [address] PCP - General Pediatrics 06/05/18 04/25/22 No Pcp, Pcp PCP - General 06/08/22 07/19/22 Guadalupe Mcbride MD PCP - General Family Medicine 07/20/22 11/01/23 Sena Dominguez PA [address] [place] [address] [place] [address] PCP - BRADY Physician Program Management Intern 11/02/23 Levy Barry MD [address] [place] [address] [place] [address] PCP - General Family Medicine 12/20/23 documented as of this encounter
--- OUTSIDE RECORDS SUMMARY | 2025-09-18 11:45 | XMS_ITS | Encounter Summary ---
Author Organization [facility] work ([facility]) Address [address] [place] [address] Care Team Providers Care Straw Hat Brim Cutter Operator Name Role Phone Meme Steel MD Primary Care Provider [phone] Pcp, Pcp Primary Care Provider Guadalupe Sosa MD Primary Care Provider [phone] Sena Dominguez Unavailable [phone] Levy Barry MD Primary Care Provider [phone] Source Comments The information that you have [...] the sender immediately.[facility] ([facility]) Encounter Details Date Type Department Care Team (Late st Contact Info) Description 01/14/2013 Historical Note [facility] Laiyaoyao System Devyn Vásquez MD [address] [place] [address] [phone] Social History Tobacco Use Types Packs/Day Years [...] LEATHA CARRILLO - [facility] 2315 [facility] G30 [place] [phone] Brenda Clay MD 2315 [facility] [address] [place] [address] 04/15/2026 10:00 AM EDT Office Visit [facility] + [facility] [address] [facility] 105 [place] [phone] Sena Dominguez PA [address] [facility] [place] [address] documented as of this encounter Visit Diagnoses Not on filedocumented in this encounter Care Teams Straw Hat Brim Cutter Operator Relationship Specialty Start Date End Date Meme Steel MD [address] [place] [address] 105 [place] [address] PCP - General Pediatrics 06/05/18 04/25/22 No Pcp, Pcp PCP - General 06/08/22 07/19/22 Guadalupe Mcbride MD PCP - General Family Medicine 07/20/22 11/01/23 Sena Dominguez PA [address] [place] [address] [place] [address] PCP - BRADY Physician Pageant Director 11/02/23 Levy Barry MD [address] [place] [address] [place] [address] PCP - General Family Medicine 12/20/23 documented as of this encounter
--- OUTSIDE RECORDS SUMMARY | 2025-09-18 11:45 | XMS_ITS | Encounter Summary ---
Author Organization [facility] work ([facility]) Address [address] [place] [address] Care Team Providers Care Rn Interventional Name Role Phone Meme Steel MD Primary Care Provider [phone] Pcp, Pcp Primary Care Provider Guadalupe Sosa MD Primary Care Provider [phone] Sena Dominguez Unavailable [phone] Levy Barry MD Primary Care Provider [phone] Source Comments The information that you have [...] error, please contact the sender immediately.[facility] ([facility]) Encounter Details Date Type Department Care Team (Late st Contact Info) Description 11/21/2013 Historical Note [facility] TriPlay System Devyn Vásquez MD [address] [place] [address] [phone] Social History Tobacco Use Types Packs/Day Years Used Date Smoking Tobacco: Never Assessed Comments Unknown Sex and Gender Information Value Date Recorded Sex Assigned at Not on file Legal Sex Female 1:04 AM EDT Gender Identity Not on file Sexual Orientation Not on file documented as of this encounter Plan of Treatment Upcoming Encounters Date Type Department Care Team ([facility] st Contact Info) Description 10/10/2025 10:00 AM EST Office Visit LEATHA CARRILLO - [facility] at [facility] 23[address] [facility] G30 [place] [phone] Brenda Clay MD 2315 [facility] [address] [place] [phone] 04/15/2026 10:00 AM EDT Office Visit [facility] at [facility] + [facility] 4[address] [facility] 105 [place] [phone] Sena Dominguez PA 4247 [facility] [place] [address] documented as of this encounter Visit Diagnoses Not on filedocumented in this encounter Care Teams Rn Interventional Relationship Specialty Start Date End Date Meme Steel MD [address] [place] [address] 105 [place] [address] PCP - General Pediatrics 06/05/18 04/25/22 No Pcp, Pcp PCP - General 06/08/22 07/19/22 Guadalupe Mcbride MD PCP - General Family Medicine 07/20/22 11/01/23 Sena Dominguez PA [address] [place] [address] [place] [address] PCP - BRADY Physician Stone Carriage Operator 11/02/23 Levy Barry MD [address] [place] [address] [place] [address] PCP - General Family Medicine 12/20/23 documented as of this encounter
--- OUTSIDE RECORDS SUMMARY | 2025-09-18 11:45 | XMS_ITS | Encounter Summary ---
Author Organization [facility] work ([facility]) Address [address] [place] [address] Care Team Providers Care Land Economist Name Role Phone Meme Steel MD Primary Care Provider [phone] Pcp, Pcp Primary Care Provider Guadalupe Sosa MD Primary Care Provider [phone] Sena Dominguez Unavailable [phone] Levy Barry MD Primary Care Provider [phone] Source Comments The information that you have [...] error, please contact the sender immediately.[facility] ([facility]) Encounter Details Date Type Department Care Team (Late st Contact Info) Description 01/14/2013 Historical Note [facility] Clipboard System Devyn Vásquez MD [address] [place] [address] [phone] Social History Tobacco Use Types Packs/Day Years [...] CARRILLO - [facility] at [facility] 23[address] [facility] [address] [place] [phone] Brenda Clay MD 2315 [facility] [address] [place] [phone] 04/15/2026 10:00 AM EDT Office Visit [facility] + [facility] 4247 [facility] 105 [place] [phone] Sena Dominguez PA 4247 [facility] [place] [address] documented as of this encounter Visit Diagnoses Not on filedocumented in this encounter Care Teams Land Economist Relationship Specialty Start Date End Date eMme Steel MD [address] [place] [address] 105 [place] [address] PCP - General Pediatrics 06/05/18 04/25/22 No Pcp, Pcp PCP - General 06/08/22 07/19/22 Guadalupe Mcbride MD PCP - General Family Medicine 07/20/22 11/01/23 Sena Dominguez PA [address] [place] [address] [place] [address] PCP - BRADY Physician Child Development Teacher 11/02/23 Levy Barry MD [address] [place] [address] [place] [address] PCP - General Family Medicine 12/20/23 documented as of this encounter
--- OUTSIDE RECORDS SUMMARY | 2025-09-18 11:45 | XMS_ITS | Encounter Summary ---
Author Organization [facility] work ([facility]) Address [address] [place] [address] Care Team Providers Care Steam Shovel Engineer Name Role Phone Meme Steel MD Primary Care Provider [phone] Pcp, Pcp Primary Care Provider Guadalupe Sosa MD Primary Care Provider [phone] Sena Dominguez Unavailable [phone] eLvy Barry MD Primary Care Provider [phone] Source Comments The information that you have [...] the sender immediately.[facility] ([facility]) Encounter Details Date Type Department Care Team (Late st Contact Info) Description 11/21/2013 Historical Note [facility] Foodista System Devyn Vásquez MD [address] [place] [address] [phone] Social History Tobacco Use Types Packs/Day Years [...] LEATHA CARRILLO - [facility] 23[address] [facility] [address]30 [place] [phone] Brenda Clay MD 2315 [facility] [address] [place] [phone] 04/15/2026 10:00 AM EDT Office Visit [facility] at [facility] + [facility] [address] [facility] [address] [place] [phone] Sena Dominguez PA [address] [facility] [place] [address] documented as of this encounter Visit Diagnoses Not on filedocumented in this encounter Care Teams Steam Shovel Engineer Relationship Specialty Start Date End Date Meme Steel MD [address] [place] [address] 105 [place] [address] PCP - General Pediatrics 06/05/18 04/25/22 No Pcp, Pcp PCP - General 06/08/22 07/19/22 Guadalupe Mcbride MD PCP - General Family Medicine 07/20/22 11/01/23 Sena Dominguez PA [address] [place] [address] [place] [address] PCP - BRADY Physician Public Relations 11/02/23 Levy Barry MD [address] [place] [address] [place] [address] PCP - General Family Medicine 12/20/23 documented as of this encounter
--- OUTSIDE RECORDS SUMMARY | 2025-09-18 11:45 | XMS_ITS | Encounter Summary ---
Author Organization [facility] work ([facility]) Address [address] [place] [address] Care Team Providers Care Brass Chaser Name Role Phone Meme Steel MD Primary Care Provider [phone] Pcp, Pcp Primary Care Provider Guadalupe Sosa MD Primary Care Provider [phone] Sena Dominguez Unavailable [phone] Levy Barry MD Primary Care Provider [phone] Source Comments The information that you have received may contain highly confidential and/or federally protected health information. This information has been disclosed to you from records protected by [facility]. The law prohibits you from [...] the sender immediately.[facility] ([facility]) Encounter Details Date Type Department Care Team (Late st Contact Info) Description 11/21/2013 Historical Note [facility] EvaluAgent System Devyn Vásquez MD [address] [place] [address] [phone] Social History Tobacco Use Types Packs/Day Years [...] LEATHA CARRILLO - [facility] 23[address] [facility] [address] [place] [phone] Brenda Clay MD 2315 [facility] [address] [place] [phone] 04/15/2026 10:00 AM EDT Office Visit [facility] at [facility] + [facility] 4247 [facility] 105 [place] [phone] Sena Dominguez PA 4247 [facility] [place] [address] documented as of this encounter Visit Diagnoses Not on filedocumented in this encounter Care Teams Brass Chaser Relationship Specialty Start Date End Date Meme Steel MD [address] [place] [address] 105 [place] [address] PCP - General Pediatrics 06/05/18 04/25/22 No Pcp, Pcp PCP - General 06/08/22 07/19/22 Guadalupe Mcbride MD PCP - General Family Medicine 07/20/22 11/01/23 Sena Dominguez PA [address] [place] [address] [place] [address] PCP - BRADY Physician Automatic Beam Warper Tender 11/02/23 Levy Barry MD [address] [place] [address] [place] [address] PCP - General Family Medicine 12/20/23 documented as of this encounter
--- OUTSIDE RECORDS SUMMARY | 2025-09-18 11:45 | XMS_ITS | Encounter Summary ---
Author Organization [facility] work ([facility]) Address [address] [place] [address] Care Team Providers Care Airport Maintenance Laborer Name Role Phone Meme Steel MD Primary Care Provider [phone] Pcp, Pcp Primary Care Provider Guadalupe Sosa MD Primary Care Provider [phone] Sena Dominguez Unavailable [phone] Levy Barry MD Primary Care Provider [...] contact the sender immediately.[facility] ([facility]) Encounter Details Date Type Department Care Team (Late st Contact Info) Description 11/21/2013 Historical Note [facility] weeSPIN System Devyn Vásquez MD [address] [place] [address] [phone] Social History Tobacco Use Types Packs/Day Years Used Date Smoking Tobacco: Never Assessed Comments Unknown Sex and Gender Information Value Date Recorded Sex Assigned at Not on file Legal Sex Female 1:04 AM EDT Gender Identity Not on file Sexual Orientation Not on file documented as of this encounter Plan of Treatment Upcoming Encounters Date Type Department Care Team ([facility] st Contact Info) Description 10/10/2025 10:00 AM EST Office Visit LEATHA CARRILLO - [facility] 23[address] [facility] G30 [place] [phone] Brenda Clay MD 2315 [facility] [address] [place] [phone] 04/15/2026 10:00 AM EDT Office Visit [facility]HA [facility] at [facility] + [facility] 4[address] [facility] 105 [place] [phone] Sena Dominguez PA 4[address] [facility] [place] [address] documented as of this encounter Visit Diagnoses Not on filedocumented in this encounter Care Teams Airport Maintenance Laborer Relationship Specialty Start Date End Date Meme Steel MD [address] [place] [address] 105 [place] [address] PCP - General Pediatrics 06/05/18 04/25/22 No Pcp, Pcp PCP - General 06/08/22 07/19/22 Guadalupe Mcbride MD PCP - General Family Medicine 07/20/22 11/01/23 Sena Dominguez PA [address] [place] [address] [place] [address] PCP - BRADY Physician Engineer Gas Pumping Station 11/02/23 Levy Barry MD [address] [place] [address] [place] [address] PCP - General Family Medicine 12/20/23 documented as of this encounter
--- OUTSIDE RECORDS SUMMARY | 2025-09-18 11:45 | XMS_ITS | Encounter Summary ---
Author Organization [facility] work ([facility]) Address [address] [place] [address] Care Team Providers Care Parimutuel Ticket Seller Name Role Phone Meme Steel MD Primary Care Provider No Pcp, Pcp Primary Care Provider Guadalupe Sosa MD Primary Care Provider [phone] Sena Dominguez Unavailable [phone] Levy Barry MD Primary Care Provider [phone] Source Comments The information that you have [...] error, please contact the sender immediately.[facility] ([facility]) Encounter Details Date Type Department Care Team (Late st Contact Info) Description 01/02/2014 Historical Note [facility] Cinegif System Devyn Vásquez MD [address] [place] [address] [phone] Social History Tobacco Use Types Packs/Day Years [...] CARRILLO - [facility] at [facility] 2315 [facility] [address]30 [place] [phone] Brenda Clay MD 2315 [facility] [address] [place] [phone] 04/15/2026 10:00 AM EDT Office Visit [facility] + [facility] 4247 [facility] 105 [place] [phone] Sena Dominguez PA 4247 [facility] [place] [address] documented as of this encounter Visit Diagnoses Not on filedocumented in this encounter Care Teams Parimutuel Ticket Seller Relationship Specialty Start Date End Date Meme Steel MD [address] [place] [address] 105 [place] [address] PCP - General Pediatrics 06/05/18 04/25/22 No Pcp, Pcp PCP - General 06/08/22 07/19/22 Guadalupe Mcbride MD PCP - General Family Medicine 07/20/22 11/01/23 Sena Dominguez PA [address] [place] [address] [place] [address] PCP - BRADY Physician Telephone Order Clerk 11/02/23 Levy Barry MD [address] [place] [address] [place] [address] PCP - General Family Medicine 12/20/23 documented as of this encounter
--- OUTSIDE RECORDS SUMMARY | 2025-09-18 11:45 | XMS_ITS | Encounter Summary ---
Author Organization [facility] work ([facility]) Address [address] [place] [address] Care Team Providers Care Concrete Swimming Pool Installer Name Role Phone Meme Steel MD Primary Care Provider No Pcp, Pcp Primary Care Provider Guadalupe Soas MD Primary Care Provider [phone] Sena Dominguez Unavailable [phone] Levy Barry MD Primary Care Provider [phone] Source Comments The information that you have [...] error, please contact the sender immediately.[facility] ([facility]) Encounter Details Date Type Department Care Team (Late st Contact Info) Description 09/17/2013 Historical Note [facility] Rhythm NewMedia System Devyn Vásquez MD [address] [place] [address] [phone] Social History Tobacco Use Types Packs/Day Years [...] CARRILLO - [facility] [address] [facility] G30 [place] [phone] Brenda Clay MD 2315 [facility] [address] [place] [phone] 04/15/2026 10:00 AM EDT Office Visit [facility] at [facility] + [facility] 4247 [facility] 105 [place] [phone] Sena Dominguez PA 4247 [facility] [place] [address] documented as of this encounter Visit Diagnoses Not on filedocumented in this encounter Care Teams Concrete Swimming Pool Installer Relationship Specialty Start Date End Date Meme Steel MD [address] [place] [address] 105 [place] [address] PCP - General Pediatrics 06/05/18 04/25/22 No Pcp, Pcp PCP - General 06/08/22 07/19/22 Guadalupe Mcbride MD PCP - General Family Medicine 07/20/22 11/01/23 Sena Dominguez PA [address] [place] [address] [place] [address] PCP - BRADY Physician Registered Nurse Supervisor 11/02/23 Levy Barry MD [address] [place] [address] [place] [address] PCP - General Family Medicine 12/20/23 documented as of this encounter
--- OUTSIDE RECORDS SUMMARY | 2025-09-18 11:45 | XMS_ITS | Encounter Summary ---
Author Organization [facility] work ([facility]) Address [address] [place] [address] Care Team Providers Care Millinery Salesperson Name Role Phone Meme Steel MD Primary Care Provider [phone] Pcp, Pcp Primary Care Provider Guadalupe Sosa MD Primary Care Provider [phone] Sena Dominguez Unavailable [phone] Levy Barry MD Primary Care Provider [phone] Source Comments The information that you have received may contain highly confidential and/or federally protected health information. This information has been disclosed to you from records protected by [facility]. The law prohibits you from [...] error, please contact the sender immediately.[facility] ([facility]) Encounter Details Date Type Department Care Team (Late st Contact Info) Description 11/21/2013 Historical Note [facility] Fabkids System Devyn Vásquez MD [address] [place] [address] [phone] Social History Tobacco Use Types Packs/Day Years [...] [facility] 2315 [facility] G[address] [place] [phone] Brenda Clay MD 2315 [facility] [address] [place] [address] 04/15/2026 10:00 AM EDT Office Visit LE[facility]HA [facility] at [facility] + [facility] 4247 [facility] [address] [place] [phone] Sena Dominguez PA 4247 [facility] [place] [address] documented as of this encounter Visit Diagnoses Not on filedocumented in this encounter Care Teams Millinery Salesperson Relationship Specialty Start Date End Date Meme Steel MD [address] [place] [address] 105 [place] [address] PCP - General Pediatrics 06/05/18 04/25/22 No Pcp, Pcp PCP - General 06/08/22 07/19/22 Guadalupe Mcbride MD PCP - General Family Medicine 07/20/22 11/01/23 Sena Dominguez PA [address] [place] [address] [place] [address] PCP - BRADY Physician Financial Institution Treasurer 11/02/23 Levy Barry MD [address] [place] [address] [place] [address] PCP - General Family Medicine 12/20/23 documented as of this encounter
--- OUTSIDE RECORDS SUMMARY | 2025-09-18 11:45 | XMS_ITS | Encounter Summary ---
Author Organization [facility] work ([facility]) Address [address] [place] [address] Care Team Providers Care Junior Assistant Manager Name Role Phone Meme Steel MD Primary Care Provider [phone] Pcp, Pcp Primary Care Provider Guadalupe Sosa MD Primary Care Provider [phone] Sena Dominguez Unavailable [phone] Levy Barry MD Primary Care Provider [phone] Source Comments The information that you have [...] error, please contact the sender immediately.[facility] ([facility]) Encounter Details Date Type Department Care Team (Late st Contact Info) Description 01/02/2014 Historical Note [facility] Volantis Systems System Devyn Vásquez MD [address] [place] [address] [phone] Social History Tobacco Use Types Packs/Day Years [...] - [facility] at [facility] 2315 [facility] G30 [place] [phone] Brenda Clay MD 2315 [facility] [address] [place] [phone] 04/15/2026 10:00 AM EDT Office Visit [facility] at [facility] + [facility] 4247 [facility] 105 [place] [phone] Sena Dominguez PA 4247 [facility] [place] [address] documented as of this encounter Visit Diagnoses Not on filedocumented in this encounter Care Teams Junior Assistant Manager Relationship Specialty Start Date End Date Meme Steel MD [address] [place] [address] 105 [place] [address] PCP - General Pediatrics 06/05/18 04/25/22 No Pcp, Pcp PCP - General 06/08/22 07/19/22 Guadalupe Mcbride MD PCP - General Family Medicine 07/20/22 11/01/23 Sena Dominguez PA [address] [place] [address] [place] [address] PCP - BRADY Physician Threading Machine Setter 11/02/23 Levy Barry MD [address] [place] [address] [place] [address] PCP - General Family Medicine 12/20/23 documented as of this encounter
--- OUTSIDE RECORDS SUMMARY | 2025-09-18 11:45 | XMS_ITS | Encounter Summary ---
Author Organization [facility] work ([facility]) Address [address] [place] [address] Care Team Providers Care Test Deck Supervisor Name Role Phone Meme Steel MD Primary Care Provider [phone] No Pcp, Pcp Primary Care Provider Guadalupe Sosa MD Primary Care Provider [phone] Sena Dominguez Unavailable [phone] Levy Barry MD Primary Care Provider [phone] Source Comments The information that you have [...] please contact the sender immediately.[facility] ([facility]) Encounter Details Date Type Department Care Team (Late st Contact Info) Description 09/17/2013 Historical Note [facility] [employer] Devyn Vásquez MD [address] [place] [address] [id number] Social History Tobacco Use Types Packs/Day Years [...] CARRILLO - [facility] [address] [facility] [address] [place] [phone] Brenda Clay MD [address] [facility] [address] [place] [phone] 04/15/2026 10:00 AM EDT Office Visit [facility] + [facility] [address] [facility] [address] [place] [phone] Sena Dominguez PA [address] [facility] [place] [address] documented as of this encounter Visit Diagnoses Not on filedocumented in this encounter Care Teams Test Deck Supervisor Relationship Specialty Start Date End Date Meme Steel MD [address] [place] [address] [address] [place] [phone] PCP - General Pediatrics 06/05/18 04/25/22 No Pcp, Pcp PCP - General 06/08/22 07/19/22 Guadalupe Mcbride MD PCP - General Family Medicine 07/20/22 11/01/23 Sena Dominguez PA [address] [place] [address] [place] [id number] PCP - BRADY Physician Dough Cutting Machine Operator 11/02/23 Levy Barry MD [address] [place] [address] [place] [address] PCP - General Family Medicine 12/20/23 documented as of this encounter
--- OUTSIDE RECORDS SUMMARY | 2025-09-18 11:45 | XMS_ITS | Encounter Summary ---
Author Organization [facility] work ([facility]) Address [address] [place] [address] Care Team Providers Care [employer] Department Head Name Role Phone Meme Steel MD Primary Care Provider [phone] Pcp, Pcp Primary Care Provider Guadalupe Sosa MD Primary Care Provider [phone] Sena Dominguez Unavailable [phone] Levy Barry MD Primary Care Provider [phone] Source Comments The information that you have [...] the sender immediately.[facility] ([facility]) Encounter Details Date Type Department Care Team (Late st Contact Info) Description 05/14/2013 Historical Note [facility] [employer] Devyn Vásquez MD [address] [place] [address] [phone] Social History Tobacco Use Types Packs/Day Years [...] CARRILLO - [facility] [address] [facility] [address] [place] [phone] Brenda Clay MD [address] [facility] [address] [place] [phone] 04/15/2026 10:00 AM EDT Office Visit [facility] at [facility] + [facility] [address] [facility] [address] [place] [phone] Sena Dominguez PA [address] [facility] [place] [address] documented as of this encounter Visit Diagnoses Not on filedocumented in this encounter Care Teams [employer] Department Head Relationship Specialty Start Date End Date Meme Steel MD [address] [place] [address] [address] [place] [address] PCP - General Pediatrics 06/05/18 04/25/22 No Pcp, Pcp PCP - General 06/08/22 07/19/22 Guadaulpe Mcbride MD PCP - General Family Medicine 07/20/22 11/01/23 Sena Dominguez PA [address] [place] [address] [place] [phone] PCP - BRADY Physician Drill Sharpener Operator 11/02/23 Levy Barry MD [address] [place] [address] [place] [address] PCP - General Family Medicine 12/20/23 documented as of this encounter
== END 2025-09-18 11:58 | disposition home or self-care (01) ==
LOC: HO.HOS 10:03
PROVIDERS: Visit Provider Physician Assistant
DX: S82.831A Other fracture of upper and lower end of right fibula, initial encounter for closed fracture (principal)
CPT/HCPCS: 99024

== ENCOUNTER → 2025-09-18 10:12 | Outpatient (BNV) | payer OTHER, SELFPAY | PROVIDERS: Visit Provider Radiology Body Imaging | DX: M25.571 Pain in right ankle and joints of right foot (principal) | CPT/HCPCS: 73610 ==

== ENCOUNTER 2025-10-24 08:43 | Outpatient (AMB) | payer OTHER, SELFPAY ==
--- NOTE | 2025-10-24 08:54 | MHC.OFFVIS ---
Intake Visit Reasons: PO- Right Ankle ORIF 08/05/25 - w/ Xray Intake Note: Kimber is a 20 year old female who presents today for a post operative appointment status post right ankle ORIF, performed by Dr. Fernández on 08/05/2025. At her last visit she was fit for a Tall walking boot and instructed to begin weight bearing as tolerated in the boot. Today patient reports that she is doing well, complaints of mild pain at the lateral side of ankle and sometimes at the medial side with activity. Allergies No Known Allergies Allergy (Verified 10/24/25 08:55) Medication List - Last Reconciled 10/24/25 by Nayeli Perez PA-C fexofenadine 180 mg PO DAILY fluoxetine 40 mg PO DAILY levothyroxine 25 mcg PO DAILY lorazepam 2 mg PO BEDTIME PRN norethindrone-e.estradiol-iron 1 mg-20 mcg (21)/75 mg (7) (Aurovela Fe 1-20 (28)) 1 tab PO DAILY propranolol ER 60 mg PO DAILY HPI Comments Details: History of Present Illness The patient is a 20 year old female presenting for a postoperative follow-up visit for her Right ankle. She is s/p Rt ankle ORIF August [address] Fernández. The patient reports experiencing some intermittent pain, primarily on the outside of the ankle, along with occasional cramping sensations inside the ankle. She attends physical therapy twice a week, where they are working on range of motion, strengthening exercises such as toe lifts and calf raises, and balance training. She has attempted to walk without her boot but feels off-balance when doing so. The patient also reports a sensation of pressure in her ankle when taking a deep breath or during strenuous exercise. Social History - Functional Status: The patient attends physical therapy twice a week. 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 - She also reports feeling off-balance when walking without her boot. - Respiratory: Reports a sensation of pressure in her ankle when taking a deep breath. Physical Exam Exam Exam: Physical Exam - Extremities: Residual swelling is noted on the lateral aspect of the ankle. - Musculoskeletal: Strength is good with plantarflexion and dorsiflexion without pain. - Eversion is strong but elicits stress on the lateral ankle. Results Reviewed Results Reviewed: Xrays were obtained in the office today and personally reviewed by me of the right ankle show well healed fracture with ankle motrise intact Assessment & Plan Assessment & Plan (1) Closed fracture of right distal fibula: Code(s): S82.831A - Other fracture of upper and lower end of right fibula, initial encounter for closed fracture Category: Medical Qualifiers: Encounter type: subsequent encounter Fracture healing: with routine healing Fracture morphology: other fracture Qualified Code(s): S82.831D - Other fracture of upper and lower end of right fibula, subsequent encounter for closed fracture with routine healing Plan Plan 1. Postoperative Status Of Ankle Fracture The patient is nearly three months postoperative from ankle surgery. Radiographs show intact hardware, the joint space is symmetrical, and the bone has healed well. She has good ankle strength but continues to have intermittent pain and swelling, which is an expected part of the recovery process. The patient will be weaned from the walking boot and was fit for a lace-up ankle brace, which she should wear for the next 4-6 weeks, especially during activities like walking on uneven surfaces. She is advised to continue with physical therapy, focusing on strengthening, balance, and her home exercise program. For occasional flare-ups, she can use Tylenol or ibuprofen. No further routine follow-up is scheduled, but she should return if there are concerns such as worsening pain where she cannot walk, limping, or signs of infection like redness and heat. Consent Patient was informed and verbally consented to the use of an ambient scribe for clinic note documentation during this visit. Orders: Orders XR ankle RT min 3V Today M25.571 - Pain in right ankle and joints of right foot Coding Level of Care Code Global (31499) Diagnoses Other closed fracture of distal end of right fibula with routine healing, subsequent encounter S82.831D Encounter type: subsequent encounter Fracture healing: with routine healing Fracture morphology: other fracture
== END 2025-10-24 10:20 | disposition home or self-care (01) ==
LOC: HO.HOS 08:44
PROVIDERS: Visit Provider Physician Assistant
DX: S82.831D Other fracture of upper and lower end of right fibula, subsequent encounter for closed fracture with routine healing (principal)
CPT/HCPCS: 99024

== ENCOUNTER → 2025-10-24 08:46 | Outpatient (BNV) | payer OTHER, SELFPAY | PROVIDERS: Visit Provider Radiology Diagnostic Radiology | DX: M85.871 Other specified disorders of bone density and structure, right ankle and foot (principal) | CPT/HCPCS: 73610 ==

== ENCOUNTER 2025-10-24 08:57 | Outpatient (REF) | payer OTHER, SELFPAY ==
--- NOTE | ~2025-10-24 | XR_ITS ---
EXAMINATION: XR ANKLE 3 OR MORE VIEWS RIGHT HISTORY: M25.571 - Pain in right ankle and joints of right foot COMPARISON: Comparison is made with the prior examination dated 09/18/2025. FINDINGS: Three views of the right ankle are submitted. The bones are osteopenic. The patient is again noted to be status post internal fixation of the distal fibula with a sideplate and multiple orthopedic screws. The fracture has healed. The joint spaces are preserved. The soft tissues are unremarkable. XR/XR ankle RT min 3V IMPRESSION: Osteopenia. Healed fracture of the distal fibula. No acute abnormality is seen. Electronically signed by: Rick Kim MD 10/24/2025 08:54 AM EST
== END 2025-10-24 08:58 ==
LOC: HO.HOSX 08:57
PROVIDERS: Visit Provider Physician Assistant
DX: S82.831D Other fracture of upper and lower end of right fibula, subsequent encounter for closed fracture with routine healing (principal); X58.XXXD Exposure to other specified factors, subsequent encounter
CPT/HCPCS: 73610